=== PATIENT | male | born 1945 | race Caucasian/White ===

== ENCOUNTER 2018-07-17 10:45 | Outpatient (CLI) | payer MEDICARE ==
[~2018-07-17] VITALS: Ht 182.9 cm; Wt 99.8 kg
[~2018-07-17 10:45] MED LIST: L.AC1CAP6 PO; LISI1TAB6 PO; WARF4TAB PO
[2018-07-17] MEDS ORDERED: LACTATED RINGERS 1,000 ML IV PRN (12:35)
[2018-07-18] MEDS ORDERED: HYDR-3812 PO (08:47)
[2018-07-18] MEDS ORDERED: CLIN300C3 PO (08:47)
== END 2018-07-17 15:31 ==
LOC: PREOP 10:45
PROVIDERS: ATTEND Otolaryngology Otolaryngology/Facial Plastic Surgery
DX: Z01.818 Encounter for other preprocedural examination (principal)

== ENCOUNTER 2018-07-18 06:30 | Day surgery (SDC) | payer MEDICARE ==
[~2018-07-18] VITALS: Ht 182.9 cm; Wt 99.8 kg
[2018-07-18] MEDS ORDERED: CLINDAMYCIN 600 MG/50 ML IVPB 50 ML IV ONE (07:00)
[2018-07-18] MEDS ORDERED: CATHETER FLUSH 10 ML SYR IV PRN (07:00)
--- NOTE | 2018-07-18 07:01 | Progress Note-Pre Operative ---
Pre-Operative Progress Note H&P Reviewed The H&P was reviewed, patient examined and no changes noted. Date Seen by Provider: Jul 18, 2018 Time Seen by Provider: 07:00 Date H&P Reviewed: Jul 18, 2018 Time H&P Reviewed: 07:00 Pre-Operative Diagnosis: Chronic Right Sinusitis SELENA OG MD Jul 18, 2018 07:01
[2018-07-18] MEDS ORDERED: LIDOCAINE/EPI 1%-1:100,000 (XYLOCAINE) 20ML ONE (07:03)
[2018-07-18] MEDS ORDERED: BSS 15 ML ONE (07:03)
[2018-07-18] MEDS ORDERED: COCAINE HCL 4% 2 ML SYR ONE (07:03)
[2018-07-18] MEDS ORDERED: PHENYLEPHRINE 0.5% NASAL SPR (NEO-SYNEPHRINE) REG ONE (07:03)
--- OUTSIDE RECORDS SUMMARY | 2018-07-18 07:05 | XMS REPORT ---
Author [facility] Organization [facility] Address [address] [id number] Phone [phone] Summary purpose TRANSITION OF CARE AUTO GENERATION Chief Complaint and Reason for Visit No authorized Reason for Visit (Admitting Diagnosis) is available for this visit. Problem list No authorized problems tracked for continuity of care are available for this visit. Encounters No authorized problems tracked for encounter diagnoses are available for this visit. Medications No medications recorded for this patient visit Allergies, adverse reactions, alerts Allergen Category Ingredient Status Reaction Severity Onset Penicillins Drug Allergy Penicillins Confirmed or Verified Immunizations No immunizations recorded for this patient visit Relevant diagnostic tests and/or laboratory data No authorized results are available for this patient visit History of procedures No procedures recorded for this patient visit. Functional status No functional or cognitive status observations are available for this visit. Vital signs No authorized vital signs are available for this visit. Social history No Social History or smoking status observations were recorded for this visit. ( Unknown if ever smoked.) Treatment Plan No treatment plan text is available for this visit. Hospital discharge instructions No discharge instruction text is available for this visit.
--- OUTSIDE RECORDS SUMMARY | 2018-07-18 07:06 | XMS REPORT ---
Author [facility] Organization [facility] Address [address] [id number] Phone [phone] Summary purpose TRANSITION OF CARE AUTO GENERATION [...] visit Relevant diagnostic tests and/or laboratory data RESULTS Radiology Results [id number] WB BONE SCAN PACs Image DATE OF EXAM: 2015 [id number] BONE SCAN : RADIOLOGY REPORT DATE OF SERVICE:04/15/15 HISTORY:Patient has left side mid low back pain x three weeks. Patient injured while duck hunting. WHOLE BODY BONE SCAN 1345 HOURS The patient received 22.4 mCi of technetium MDP intravenously. Gamma camera images show normal axial skeleton with attention to the spine and ribs where patient complains of pain. There is some increased activity in the left wrist. The right distal arm and hand are not visualized well due to field of view limitations. There is increased activity in the medial aspect of both knees, likely degenerative in nature.There is mild increased activity superiorly in the left hip joint area, in the likely acetabular location. This is fairly minimal, most likely degenerative. Both kidneys show normal activity. IMPRESSION:Findings in peripheral joints, likely on degenerative basis. There is increased activity at the acromioclavicular joints bilaterally, greater on the right, also likely degenerative. No abnormal activity is seen in the spine and ribs where patient complains apparently of pain. DO JOANNA Gonzales/andres 04/15/2015 13:51:00 / 04/15/2015 17:47:36 cc:Dr. Daley This document has been electronically Signed by: On: History of procedures No procedures recorded for [...]
--- OUTSIDE RECORDS SUMMARY | 2018-07-18 07:06 | XMS REPORT | Clinical Summary ---
Author Author Admin, [email or web address] Organization [employer] Address Unknown Phone Unavailable Allergies, Adverse Reactions, Alerts Allergy Name Reaction Description Start Date Severity Status Provider PENICILLINS Mild No Longer Active Piotr Daley DO PENICILLINS Critical No Longer Active Piotr Katie Edi DO PENICILLINS UNK Inactive Bernadette Elder Conditions or Problems Problem Name Problem Code Onset Date Status Entry Date Provider Comment Standard Description Annotate CAROTID ARTERY DISEASE 433.10 Active Piotr Daley DO Occlusion and stenosis of carotid artery, without mention of cerebral infarction HYPERTENSION 401.9 Active Piotr Daley DO Unspecified essential hypertension FLANK PAIN, RIGHT 789.09 Resolved Katrina Rinaldi MD PhD Abdominal pain, other specified site; multiple sites PROSTATE CANCER, HX OF V10.46 Active Piotr Daley DO Personal history of malignant neoplasm of prostate HEALTH MAINTENANCE EXAM V70.0 Resolved Katrina Rinaldi MD PhD Routine general medical examination at a health care facility BRONCHITIS-ACUTE 466.0 Inactive Piotr Daley DO Acute bronchitis SCREENING, COLON CANCER V76.51 Resolved Katrina Rinaldi MD PhD Screening for malignant neoplasms of colon BRONCHITIS-ACUTE 466.0 Inactive Piotr Daley DO Acute bronchitis Rule out DEEP VENOUS THROMBOPHLEBITIS, LEG, RIGHT Resolved Piotr Daley DO Acute venous embolism and thrombosis of unspecified deep vessels of lower extremity DEEP VENOUS THROMBOPHLEBITIS, LEG, RIGHT 453.40 Resolved Piotr Daley DO Acute venous embolism and thrombosis of unspecified deep vessels of lower extremity Coumadin therapy V58.61 Active Alena Ramey Long-term (current) use of anticoagulants Seborrheic keratosis 702.19 Resolved Piotr Katie Edi DO Other seborrheic keratosis Bronchitis-Acute 466.0 Inactive Piotr W Edi DO Acute bronchitis Leg pain, right 729.5 Resolved Piotr W Edi DO Pain in limb Right leg pain 729.5 Resolved Poitr W Edi DO Pain in limb Bronchitis-Acute 466.0 Resolved Piotr W Edi DO Acute bronchitis Knee pain, left 719.46 Resolved Piotr Katie Edi DO Pain in joint involving lower leg Health maintenance exam V70.0 Active Adriane Rojo LPN Routine general medical examination at a health care facility Actinic keratoses 702.0 Resolved Piotr Katie Edi DO Actinic keratosis Personal history of malignant neoplasm of prostate V10.46 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 Personal history of malignant neoplasm of prostate Coronary artery disease 414.00 Active Alina Meyers APRN Coronary atherosclerosis of unspecified type of vessel, [employer] or graft Back pain, thoracic region, left 724.1 Inactive Piotr Katie Edi DO Pain in thoracic spine Thoracic back pain 724.5 Resolved Piotr Katie Edi DO Backache, unspecified Back pain lumbar 724.2 Resolved Piotr Katie Edi DO Lumbago Peripheral neuropathy, lower extremity, left 356.9 Active 02/19 Piotr W Edi DO Unspecified hereditary and idiopathic peripheral neuropathy Insect bite 919.4 Resolved Piotr W Edi DO Insect bite, nonvenomous, of other, multiple, and unspecified sites, without mention of infection Pruritus 698.9 Resolved Piotr Katie Edi DO Unspecified pruritic disorder Wellness exam V70.0 Active Emelyn Goode R[place]albita Routine general medical examination at a health care facility Bronchitis-Acute 466.0 Resolved Emelyn Goode [place] Acute bronchitis Dyspnea 786.09 Resolved Emelyn Goode [place] Other dyspnea and respiratory abnormality Sacroiliitis, right 720.2 Active Emelyn Goode [place] Sacroiliitis, not elsewhere classified Pes anserinus bursitis, right 726.61 Inactive Poitr Daley DO Pes anserinus tendinitis or bursitis Body Mass Index 30.0-30.9 Adult Refinement Piotr Daley DO Body Mass Index 30.0-30.9, adult BMI 31-31.9 Active Piotr Daley DO Body Mass Index 30.0-30.9, adult Obesity Class I (BMI 30-34.9) Active Piotr Daley DO Obesity, unspecified Deep venous thrombophlebitis, 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 Piotr Daley DO Acute venous embolism and thrombosis of unspecified deep vessels of lower extremity Actinic keratosis, head 702.0 Active Piotr Daley DO Actinic keratosis GERD (gastroesophageal reflux disease) 530.81 Active Piotr Daley DO Esophageal reflux Preop exam V72.84 Active Sirisha Chen LPN Preoperative examination, unspecified FLANK PAIN, RIGHT ICD-789.09 Inactive Katrina Rinaldi MD PhD HEALTH MAINTENANCE EXAM ICD-V70.0 Inactive Katrina Rinaldi MD PhD BRONCHITIS-ACUTE ICD-466.0 Inactive Piotr Daley DO SCREENING, COLON CANCER ICD-V76.51 Inactive Katrina Rinaldi MD PhD BRONCHITIS-ACUTE ICD-466.0 Inactive Piotr Daley DO DEEP VENOUS THROMBOPHLEBITIS, LEG, 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 Inactive Sirisha Chen [employer] WE[employer] DEEP VENOUS THROMBOPHLEBITIS, LEG, 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 Inactive Sirisha Chen [employer] Seborrheic keratosis ICD-702.19 Inactive Sirisha Chen [employer] WE[employer] Bronchitis-Acute ICD-466.0 Inactive Piotr Daley DO Leg pain, right ICD-729.5 Inactive Sirisha Chen [employer] Right leg pain ICD-729.5 Inactive Sirisha Chen [employer] WE[employer]ER Bronchitis-Acute ICD-466.0 Inactive Sirisha Chen [employer] WE[employer]ER Knee pain, left ICD-719.46 Inactive Sirisha Chen [employer] WE[employer]ER Actinic keratoses ICD-702.0 Inactive Sirisha Chen [employer] WE[employer]ER Back pain, thoracic region, left ICD-724.1 Inactive Piotr Daley DO Thoracic back pain ICD-724.5 Inactive Sirisha Chen [employer] WE[employer]ER Back pain lumbar ICD-724.2 Inactive Sirisha Chen [employer] WE[employer]ER Insect bite ICD-919.4 Inactive Sirisha Chen [employer] WE[employer] Pruritus ICD-698.9 Inactive 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 Bronchitis-Acute ICD-466.0 Inactive Sirisha Chen [employer] WE[employer]ER Dyspnea ICD-786.09 Inactive Sirisha Gustavo LOO 05/09 Pes anserinus bursitis, right ICD-726.61 Inactive Piotr Daley DO Medication List Medication Instructions Start Date Stop Date Generic Name ND Status Provider Patient Instruction TRIAMCINOLONE ACETONIDE 0.1 % EXTERNAL CREAM apply bid sparingly to rash 2017 TRIAMCINOLONE ACETONIDE 31066384302 No Longer Active Piotr Daley DO Active NYSTATIN 974554 UNIT/GM EXTERNAL CREAM Apply to rash 2-3 times a day and may repeat as needed NYSTATIN 62133780919 No Longer Active Piotr Daley DO Active WARFARIN SODIUM 4 MG ORAL TABLET 1 tablet by mouth daily WARFARIN SODIUM 55197584017 Active Sirisha Chen LPN Active MELOXICAM 15 MG ORAL TABLET 1 po q day for pain with food MELOXICAM 17175161442 Active Piotr Daley DO Active PREDNISONE 10 MG ORAL TABLET 1 tablet by mouth daily PREDNISONE 40517333569 No Longer Active Emelyn Norris Active TESSALON PERLES 100 MG ORAL CAPSULE 1-2 tablet by mouth 3 times daily 04/16 BENZONATATE 48139815324 No Longer Active Emelyn Norris Active PREDNISONE 20 MG ORAL TABLET two tabs by mouth today, then one tab by mouth days two and three PREDNISONE 32200973086 No Longer Active Piotr Daley DO Active CYCLOBENZAPRINE HCL 10 MG ORAL TABLET 1 tablet by mouth three times daily as needed for muscle spasm/pain CYCLOBENZAPRINE HCL 81061141343 Active Sirisha Chen LPN Active ZITHROMAX 250 MG ORAL TABLET Take two (2 ) tablets day one, then one (1) tablet a day for four (4) more days AZITHROMYCIN 65349439115 No Longer Active Piotr Daley DO Active PROAIR HFA 108 (90 BASE) MCG/ACT INHALATION AEROSOL SOLUTION 1-2 puffs four times a day as needed ALBUTEROL SULFATE 61244087123 No Longer Active Emelyn Russel Norris Active DOXYCYCLINE HYCLATE 100 MG ORAL CAPSULE 1 cap by mouth BID x10 days DOXYCYCLINE HYCLATE 94846121866 No Longer Active Nella Harris APRN Active PREDNISONE 20 MG ORAL TABLET 2 tabs daily for 3 days, 1 tab daily for 3 days, 1/2 tab daily for 2 days PREDNISONE 30799740895 No Longer Active Matthew Rangel MD Active TRAMADOL HCL 50 MG ORAL TABLET 1 po tid with ES Tylenol TRAMADOL HCL 83385909570 No Longer Active Matthew Rangel MD Active GABAPENTIN 300 MG ORAL CAPSULE 1 po q hs for nerve pain GABAPENTIN 36176410600 No Longer Active Matthew Rangel MD Active PREDNISONE 20 MG ORAL TABLET 2 tablets today, then 1 tablet days 2 through 4 PREDNISONE 85729787973 No Longer Active Piotr Daley DO Active AZITHROMYCIN 250 MG ORAL TABLET 2 po qd x 1 day, then 1 po qd x 4 days 07/12 AZITHROMYCIN 55623640383 No Longer Active Piotr Daley DO Active IBUPROFEN 800 MG ORAL TABLET 1 tab every 8 hours as needed 07/12 IBUPROFEN 56053301949 No Longer Active Piotr Daley DO Active LOMOTIL 2.5-0.025 MG ORAL TABLET 1 to 2 four times a day as needed for diarrhea DIPHENOXYLATE-ATROPINE 71487068107 No Longer Active Piotr Daley DO Active WARFARIN SODIUM 4 MG ORAL TABLET 1 tab every evening WARFARIN SODIUM 38613125167 No Longer Active Piotr Daley DO Active PREDNISONE 20 MG ORAL TABLET 1 tablet twice daily for 2 days, then 1 tablet once daily for 2 days PREDNISONE 08832470553 No Longer Active Piotr Daley DO Active PROMETHAZINE HCL 25 MG ORAL TABLET 1 four times a day as needed for nausea/ vomiting PROMETHAZINE HCL 86882787575 No Longer Active Piotr Daley DO Active TUSSIONEX PENNKINETIC ER 10-8 MG/5ML ORAL SUSPENSION EXTENDED RELEASE 5ml po q12hr PRN Cough HYDROCOD POLST-CHLORPHEN POLST 96168855311 No Longer Active Piotr Daley DO Active AZITHROMYCIN 250 MG ORAL TABLET 2 po qd x 1 day, then 1 po qd x 4 days 10/13 AZITHROMYCIN 94616471065 No Longer Active Piotr Daley DO Active AZITHROMYCIN 250 MG ORAL TABLET 2 po qd x 1 day, then 1 po qd x 4 days 05/07 AZITHROMYCIN 08508084400 No Longer Active Piotr Daley DO Active LISINOPRIL-HYDROCHLOROTHIAZIDE 10-12.5 MG ORAL TABLET 1 tab by mouth daily LISINOPRIL-HYDROCHLOROTHIAZIDE 57923110353 Active Cristina Gamboa RN Active LISINOPRIL 10 MG ORAL TABLET 1/2-1 tab po every other day LISINOPRIL 32946609026 No Longer Active Piotr Daley DO Active VENTOLIN HFA 108 (90 Base) MCG/ACT INHALATION AEROSOL SOLUTION 2 puffs four times a day PRN cough ALBUTEROL SULFATE 37802952672 No Longer Active Piotr Daley DO Active NYSTATIN-TRIAMCINOLONE 945592-2.1 UNIT/GM-% EXTERNAL CREAM Apply to area BID NYSTATIN-TRIAMCINOLONE 58222181587 No Longer Active Alena Chavira [employer] WEAVER Active PHISOHEX 3 % LIQD Use Directed HEXACHLOROPHENE 65245787643 No Longer Active Sandra [place] Active AZITHROMYCIN 250 MG ORAL TABLET 2 po qd x 1 day, then 1 po qd x 4 days 10/21 AZITHROMYCIN 49384660765 No Longer Active Katrina Rinaldi MD PhD Active AZITHROMYCIN 250 MG ORAL TABLET 2 po qd x 1 day, then 1 po qd x 4 days 10/16 AZITHROMYCIN 20374440879 No Longer Active Piotr Daley DO Active AZITHROMYCIN 500 MG INTRAVENOUS SOLUTION RECONSTITUTED 1 po q day AZITHROMYCIN 01609100612 No Longer Active Piotr Daley DO Active NYSTATIN-TRIAMCINOLONE 523807-1.1 UNIT/GM-% EXTERNAL CREAM apply bid NYSTATIN-TRIAMCINOLONE 86778607214 No Longer Active Piotr Daley DO Active IBUPROFEN 800 MG ORAL TABLET 1 po q 8 hours prn pain sparinly IBUPROFEN 67933078458 No Longer Active Piotr Daley DO Active VITAMIN D3 5000 UNIT ORAL CAPSULE 1 po daily CHOLECALCIFEROL 38897381657 Active Piotr Daley DO Active IBUPROFEN 800 MG ORAL TABLET 1 po q 8 hours prn pain sparinly IBUPROFEN 800 MG ORAL TABLET 124194 IBUPROFEN Inactive NYSTATIN-TRIAMCINOLONE 758492-6.1 UNIT/GM-% EXTERNAL CREAM apply bid NYSTATIN-TRIAMCINOLONE 331140-1.1 UNIT/GM-% EXTERNAL CREAM 1100458 NYSTATIN-TRIAMCINOLONE Inactive AZITHROMYCIN 500 MG INTRAVENOUS SOLUTION RECONSTITUTED 1 po q day AZITHROMYCIN 500 MG INTRAVENOUS SOLUTION RECONSTITUTED 72307009608 AZITHROMYCIN Inactive VENTOLIN HFA 108 (90 Base) MCG/ACT INHALATION AEROSOL SOLUTION 2 puffs four times a day PRN cough VENTOLIN HFA 108 (90 Base) MCG/ ACT INHALATION AEROSOL SOLUTION ALBUTEROL SULFATE Inactive LISINOPRIL 10 MG ORAL TABLET 1/2-1 tab po every other day LISINOPRIL 10 MG ORAL TABLET 947664 LISINOPRIL Inactive TUSSIONEX PENNKINETIC ER 10-8 MG/5ML ORAL SUSPENSION EXTENDED RELEASE 5ml po q12hr PRN Cough TUSSIONEX PENNKINETIC ER 10-8 MG/5ML ORAL SUSPENSION EXTENDED RELEASE HYDROCOD POLST-CHLORPHEN POLST Inactive PROMETHAZINE HCL 25 MG ORAL TABLET 1 four times a day as needed for nausea/ vomiting PROMETHAZINE HCL 25 MG ORAL TABLET 757972 PROMETHAZINE HCL Inactive PREDNISONE 20 MG ORAL TABLET 1 tablet twice daily for 2 days, then 1 tablet once daily for 2 days PREDNISONE 20 MG ORAL TABLET 939275 PREDNISONE Inactive WARFARIN SODIUM 4 MG ORAL TABLET 1 tab every evening WARFARIN SODIUM 4 MG ORAL TABLET 133015 WARFARIN SODIUM Inactive LOMOTIL 2.5-0.025 MG ORAL TABLET 1 to 2 four times a day as needed for diarrhea LOMOTIL 2.5-0.025 MG ORAL TABLET 4869134 DIPHENOXYLATE-ATROPINE Inactive IBUPROFEN 800 MG ORAL TABLET 1 tab every 8 hours as needed 07/12 IBUPROFEN 800 MG ORAL TABLET 744259 IBUPROFEN Inactive PREDNISONE 20 MG ORAL TABLET 2 tablets today, then 1 tablet days 2 through 4 PREDNISONE 20 MG ORAL TABLET 582733 PREDNISONE Inactive GABAPENTIN 300 MG ORAL CAPSULE 1 po q hs for nerve pain GABAPENTIN 300 MG ORAL CAPSULE 346677 GABAPENTIN Inactive TRAMADOL HCL 50 MG ORAL TABLET 1 po tid with ES Tylenol TRAMADOL HCL 50 MG ORAL TABLET 783513 TRAMADOL HCL Inactive PROAIR HFA 108 (90 BASE) MCG/ACT INHALATION AEROSOL SOLUTION 1-2 puffs four times a day as needed PROAIR HFA 108 (90 BASE) MCG/ACT INHALATION AEROSOL SOLUTION ALBUTEROL SULFATE Inactive PREDNISONE 20 MG ORAL TABLET two tabs by mouth today, then one tab by mouth days two and three PREDNISONE 20 MG ORAL TABLET 583015 PREDNISONE Inactive TESSALON PERLES 100 MG ORAL CAPSULE 1-2 tablet by mouth 3 times daily 04/16 TESSALON PERLES 100 MG ORAL CAPSULE 761996 BENZONATATE Inactive PREDNISONE 10 MG ORAL TABLET 1 tablet by mouth daily PREDNISONE 10 MG ORAL TABLET 227905 PREDNISONE Inactive NYSTATIN 211534 UNIT/GM EXTERNAL CREAM Apply to rash 2-3 times a day and may repeat as needed NYSTATIN 384521 UNIT/GM EXTERNAL CREAM 820889 NYSTATIN Inactive TRIAMCINOLONE ACETONIDE 0.1 % EXTERNAL CREAM apply bid sparingly to rash 2017 TRIAMCINOLONE ACETONIDE 0.1 % EXTERNAL CREAM 2102503 TRIAMCINOLONE ACETONIDE Inactive AZITHROMYCIN 250 MG ORAL TABLET 2 po qd x 1 day, then 1 po qd x 4 days 10/16 AZITHROMYCIN 250 MG ORAL TABLET 330605 AZITHROMYCIN Inactive AZITHROMYCIN 250 MG ORAL TABLET 2 po qd x 1 day, then 1 po qd x 4 days 10/21 AZITHROMYCIN 250 MG ORAL TABLET 548040 AZITHROMYCIN Inactive NYSTATIN-TRIAMCINOLONE 527216-6.1 UNIT/GM-% EXTERNAL CREAM Apply to area BID NYSTATIN-TRIAMCINOLONE 650665-7.1 UNIT/GM-% EXTERNAL CREAM 0850822 NYSTATIN-TRIAMCINOLONE Inactive AZITHROMYCIN 250 MG ORAL TABLET 2 po qd x 1 day, then 1 po qd x 4 days 05/07 AZITHROMYCIN 250 MG ORAL TABLET 493026 AZITHROMYCIN Inactive AZITHROMYCIN 250 MG ORAL TABLET 2 po qd x 1 day, then 1 po qd x 4 days 10/13 AZITHROMYCIN 250 MG ORAL TABLET 759451 AZITHROMYCIN Inactive AZITHROMYCIN 250 MG ORAL TABLET 2 po qd x 1 day, then 1 po qd x 4 days 07/12 AZITHROMYCIN 250 MG ORAL TABLET 916242 AZITHROMYCIN Inactive PREDNISONE 20 MG ORAL TABLET 2 tabs daily for 3 days, 1 tab daily for 3 days, 1/2 tab daily for 2 days PREDNISONE 20 MG ORAL TABLET 075919 PREDNISONE Inactive DOXYCYCLINE HYCLATE 100 MG ORAL CAPSULE 1 cap by mouth BID x10 days DOXYCYCLINE HYCLATE 100 MG ORAL CAPSULE 7088493 DOXYCYCLINE HYCLATE Inactive ZITHROMAX 250 MG ORAL TABLET Take two (2 ) tablets day one, then one (1) tablet a day for four (4) more days ZITHROMAX 250 MG ORAL TABLET 318800 AZITHROMYCIN Inactive Advance Directives Directive Description Start Date LIVING WILL LIVING WILL Immunizations Vaccine Administration Date Value Standard Description influenza immunization (Flu Vax) has been administered Done according to patient influenza virus vaccine, unspecified formulation Vital Signs Date Name Value Unit Range Description blood pressure, diastolic, repeated by physician 76 BP phan blood pressure, diastolic 76 mm[Hg] BP phan blood pressure, systolic, repeated by physician 150 BP sys blood pressure, systolic 150 mm[Hg] BP sys height E&M 71 [in_us] Bdy height pulse rate E&M 52 /min Heart rate temperature E&M 96.4 [degF] Body temperature weight E&M 222 [lb_av] Weight Measured blood pressure, diastolic 66 mm[Hg] BP phan blood pressure, systolic 120 mm[Hg] BP sys height E&M 71 [in_us] Bdy height pulse rate E&M 65 /min Heart rate temperature E&M 96.8 [degF] Body temperature weight E&M 219.50 [lb_av] Weight Measured blood pressure, diastolic 69 mm[Hg] BP phan blood pressure, systolic 121 mm[Hg] BP sys height E&M 71 [in_us] Bdy height pulse rate E&M 77 /min Heart rate temperature E&M 97.9 [degF] Body temperature weight E&M 220.50 [lb_av] Weight Measured Diagnostic Results Date Name Value Unit Range Description Lab Report: CBC - Hematology leukocyte count, blood 6.0 10^3/MM^3 10*3/mm3 4.6-10.2 erythrocyte (RBC) count 5.36 10^6/MM^3 10*6/mm3 4.50-6.50 hemoglobin, blood 14.5 g/dL 14.0-18.0 hematocrit, blood 46.0 % 40.0-54.0 mean corpuscular volume, RBC 86 fL 80-97 mean corpuscular hemoglobin, RBC 27.0 pg 27.0-31.2 mean corpuscular hemoglobin concentration, RBC 31.5 G/DL % 31.8- 35.4 red blood cell distribution width 12.6 % 11.6-14.8 platelet count 176 10^3/MM^3 10*3/mm3 142-424 Lab Report: Comp. Metabolic Panel, CBC, Prostatic Specific Ag - Chemistry prostate specific antigen 0.03 ng/mL 0.00-4.00 sodium, serum 141 mmol/L 902-892 6408/12/17 carbon dioxide, venous blood 30.9 mmol/L 21.0-32.0 potassium, serum 4.2 mmol/L 3.5-5.2 chloride, serum 102 mmol/L 98-107 blood glucose 100 mg/dL 65-95 urea nitrogen, blood 13 mg/dL 7-18 creatinine, serum 0.89 mg/dL 0.60-1.30 Estimated Glomerular Filtration Rate (calc) 89 (?) mL/min/1.73m2 =OR > 60 mL/min alanine aminotransferase (SGPT), serum 25 U/L 12-78 aspartate aminotransferase (SGOT), serum 19 U/L 15-37 calcium, serum 8.8 mg/dL 8.5-10.1 bilirubin, serum, total 0.40 mg/dL 0.00-1.00 Lab Report: Comp. Metabolic Panel, CBC, Prostatic Specific Ag - Hematology leukocyte count, blood 5.6 10^3/MM^3 10*3/mm3 4.6-10.2 erythrocyte (RBC) count 5.52 10^6/MM^3 10*6/mm3 4.50-6.50 hemoglobin, blood 15.0 g/dL 14.0-18.0 hematocrit, blood 47.1 % 40.0-54.0 mean corpuscular volume, RBC 85 fL 80-97 mean corpuscular hemoglobin, RBC 27.1 pg 27.0-31.2 mean corpuscular hemoglobin concentration, RBC 31.8 G/DL % 31.8- 35.4 red blood cell distribution width 12.1 % 11.6-14.8 platelet count 201 10^3/MM^3 10*3/mm3 142-424 Lab Report: Comp. Metabolic Panel, CBC, Prostatic Specific Ag - Lab Alkaline phosphatase 76 50-136 Lab Report: MICROALB/CREAT W/RATIO - Lab microalbumin, urine 30 mg/L 0-19 Lab Report: MICROALB/CREAT W/RATIO - Urinalysis microalbumin/total urine volume <30 mg/g Normal mg/g mg/L 0-29 Encounters Code Encounter Date Provider Facility CPT-42892 [id number] Vst-Est Level III 14:38:24 REINFORCED IRONWORKER Piotr Daley [facility] CPT-13570 [id number] Vst-Est Level IV 08:51:04 REINFORCED IRONWORKER Piotr Daley [facility] CPT-34637 [id number] Vst-Est Level III 14:29:05 CDT Piotr Wilson [facility] CPT-63097 Level 3 Est. Patient 15:59:25 REINFORCED IRONWORKER Piotr Daley [facility] CPT-88609 Level 3 Est. Patient 12:33:59 REINFORCED IRONWORKER Piotr Wilson [facility] CPT-24651 Level 3 Est. Patient 15:56:17 REINFORCED IRONWORKER Piotr Daley [facility] CPT-03475 Level 3 Est. Patient 10:34:54 REINFORCED IRONWORKER Piotr Daley [facility] CPT-07510 Level 3 Est. Patient 17:10:19 CDT Nella Harris APRN [facility] CPT-27933 Level 3 Est. Patient 10:48:17 REINFORCED IRONWORKER Matthew Rangel MD [facility] CPT-61918 Level 4 Est. Patient 17:15:07 REINFORCED IRONWORKER Piotr Daley [facility] CPT-99625 Level 3 Est. Patient 12:46:13 REINFORCED IRONWORKER Piotr Wilson [facility] CPT-16658 Level 3 Est. Patient 15:14:31 REINFORCED IRONWORKER Piotr Katie Daley [facility] CPT-87782 Level 3 Est. Patient 09:20:13 REINFORCED IRONWORKER Piotr Katie Daley [facility] CPT-85678 Level 3 Est. Patient 09:49:40 CDT Piotr Daley [facility] CPT-87358 Level 3 Est. Patient 16:28:11 CDT Piotr Daley [facility] CPT-62166 Level 3 Est. Patient 12:41:58 REINFORCED IRONWORKER Piotr Katie Daley [facility] CPT-79946 Level 3 Est. Patient 09:21:24 CDT Piotr Daley [facility] CPT-01138 Level 3 Est. Patient 09:21:11 CDT Piotr Wilson Edi [facility] CPT-41271 Level 3 Est. Patient 11:16:29 REINFORCED IRONWORKER Piotr Katie Daley [facility] CPT-38892 Level 3 Est. Patient 18:40:19 REINFORCED IRONWORKER Piotr Katie Daley [facility] CPT-20656 Level 3 Est. Patient 19:30:50 CDT Piotr Daley [facility] CPT-02997 Level 3 Est. Patient 22:06:44 CDT Katrina Rinaldi MD [facility] CPT-31315 Level 3 Est. Patient 14:20:00 CDT Piotr Daley [facility] CPT-24534 Level 3 Est. Patient 14:15:22 REINFORCED IRONWORKER Piotr Daley [facility] CPT-56435 Level 3 Est. Patient 20:19:57 REINFORCED IRONWORKER Piotr Daley [facility] CPT-54188 Level 3 Est. Patient 16:44:32 CDT Piotr Daley [facility] CPT-61186 Level 3 Est. Patient 08:48:46 REINFORCED IRONWORKER Piotr Daley [facility] CPT-74417 Level 3 Est. Patient 21:01:21 CDT Piotr Wilson Edi [facility] Procedures Code Procedure Name Date Entry Date Standard Description CPT-01324 EKG Trac and Interp - XRAY USE ONLY 10:03:07 CDT 07/14 CPT-Cryo Cryotherapy 08:51:04 [employer]IN[employer]CED IRONWORKER CPT-G0439 Subsequent Annual Wellness Exam 08:51:04 [employer]CED IRONWORKER CPT-78132 Sacroiliac jt < 3V - XRAY USE ONLY 16:45:19 [employer]IN[employer]CED IRONWORKER 05/09 CPT-86456 LS spine comp w obliques - XRAY USE ONLY 14:52:26 [facility] CPT-57667 Chest, 2 views 12:55:58 [employer]IN[employer]CED IRONWORKER CPT-G0439 Subsequent Annual Wellness Exam 10:34:52 [employer]CED IRONWORKER CPT-60799 BMP - LAB USE ONLY 17:19:11 [employer]ED [employer]WORKER CPT-30140 PT/INR - LAB USE ONLY 17:19:10 [facility] CPT-05955 Venipuncture Draw Fee 17:19:10 [facility] CPT-92971 PT/INR - LAB USE ONLY 08:12:25 [facility] CPT-21765 Venipuncture Draw Fee 08:12:24 [employer]ED [employer]WORKER CPT-56992 Venipuncture Draw Fee 11:31:07 [employer]IN[employer]CED IRONWORKER CPT-91127 TPSA - LAB USE ONLY 11:31:07 [employer]INFORCED IRONWORKER CPT-23695 PT/INR - LAB USE ONLY 11:31:07 [employer]IN[employer]CED IRONWORKER CPT-G0439 Subsequent Annual Wellness Exam 09:59:29 [employer]IN[employer]CED [employer]ONWORKER CPT-67411 Creatinine - LAB USE ONLY 14:37:55 [employer]IN[employer]CED IRONWORKER CPT-44106 PT/INR - LAB USE ONLY 14:37:55 [employer]IN[employer]CED IRONWORKER CPT-33900 Venipuncture Draw Fee 14:37:55 [employer]IN[employer]CED IRONWORKER CPT-15383 LS spine comp w obliques - XRAY USE ONLY 12:59:25 [employer]INFORCED IRONWORKER CPT-41830 PT/INR - LAB USE ONLY 13:49:20 CDT CPT-74720 Venipuncture Draw Fee 13:49:19 CDT CPT-35735 PT/INR - LAB USE ONLY 15:48:49 CDT CPT-98132 Venipuncture Draw Fee 15:48:49 CDT CPT-84244 Venipuncture Draw Fee 11:31:59 CDT CPT-35121 PT/INR - LAB USE ONLY 11:31:59 CDT CPT-20566 Venipuncture Draw Fee 13:29:15 CDT CPT-15135 Thoracolumbar AP/Lat 15:19:19 [employer]ED [employer]WORKER CPT-G0438 Initial Annual Wellness Exam 12:18:54 [employer]ED IRONWORKER CPT-84800 Knee 3V 09:57:38 CDT CPT-OV Office Visit 15:45:01 [employer]ED IRONWORKER CPT-16083 Abd compl w upright 17:10:25 CDT
--- OUTSIDE RECORDS SUMMARY | 2018-07-18 07:07 | XMS REPORT | Clinical Summary ---
Author Author Admin, [employer] Organization [employer] Address Unknown Phone Unavailable Allergies, Adverse Reactions, [...] in limb Right leg pain 729.5 Resolved Piotr W Edi DO Pain in limb Bronchitis-Acute [...] neoplasm of prostate V10.46 Active Alina Meyers FITTER ARMAMENT Personal history of malignant neoplasm of prostate Coronary artery disease 414.00 Active Alina Meyers APRN Coronary atherosclerosis of unspecified type of vessel, [place] or graft Back pain, thoracic region, left [...] classified Pes anserinus bursitis, right 726.61 Inactive Piotr Daley DO Pes anserinus tendinitis or bursitis [...] THROMBOPHLEBITIS, LEG, 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 Inactive Sirisha Chen DIETARY SERVER DEEP VENOUS THROMBOPHLEBITIS, LEG, 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 Inactive Sirisha Chen DIETARY SERVER Seborrheic keratosis ICD-702.19 Inactive Sirisha Chen DIETARY SERVER Bronchitis-Acute ICD-466.0 Inactive Piotr Daley DO Leg pain, right ICD-729.5 Inactive Sirisha Chen DIETARY SERVER Right leg pain ICD-729.5 Inactive Sirisha Chen DIETARY SERVER Bronchitis-Acute ICD-466.0 Inactive Sirisha Chen DIETARY SERVER Knee pain, left ICD-719.46 Inactive Sirisha Chen DIETARY SERVER Actinic keratoses ICD-702.0 Inactive Sirisha Chen DIETARY SERVER Back pain, thoracic region, left ICD-724.1 Inactive Piotr Daley DO Thoracic back pain ICD-724.5 Inactive Sirisha Chen DIETARY SERVER Back pain lumbar ICD-724.2 Inactive Sirisha Chen DIETARY SERVER Insect bite ICD-919.4 Inactive Sirisha Chen DIETARY SERVER Pruritus ICD-698.9 Inactive Sirisha Chen DIETARY SERVER 04/09 Bronchitis-Acute ICD-466.0 Inactive Sirisha Chen DIETARY SERVER Dyspnea ICD-786.09 Inactive Sirisha Gustavo OLO 05/09 Pes anserinus bursitis, right ICD-726.61 Inactive Piotr Daley DO Medication List Medication Instructions Start Date Stop Date Generic Name ND Status Provider Patient Instruction TRIAMCINOLONE ACETONIDE 0.1 % EXTERNAL CREAM apply bid sparingly to rash 2017 TRIAMCINOLONE ACETONIDE 14538377241 No Longer Active Piotr Daley DO Active NYSTATIN 571613 UNIT/GM EXTERNAL CREAM Apply to rash 2-3 times a day and may repeat as needed NYSTATIN 61883695742 No Longer Active Piotr Daley DO Active WARFARIN SODIUM 4 MG ORAL TABLET 1 tablet by mouth daily WARFARIN SODIUM 00181325619 Active Sirisha Chen LPN Active MELOXICAM 15 MG ORAL TABLET 1 po q day for pain with food MELOXICAM 81527860076 Active Piotr Daley DO Active PREDNISONE 10 MG ORAL TABLET 1 tablet by mouth daily PREDNISONE 58732628527 No Longer Active Emelyn Norris Active TESSALON PERLES 100 MG ORAL CAPSULE 1-2 tablet by mouth 3 times daily 04/16 BENZONATATE 74041816325 No Longer Active Emelyn Norris Active PREDNISONE 20 MG ORAL TABLET two tabs by mouth today, then one tab by mouth days two and three PREDNISONE 50840904173 No Longer Active Piotr Daley DO Active CYCLOBENZAPRINE HCL 10 MG ORAL TABLET 1 tablet by mouth three times daily as needed for muscle spasm/pain CYCLOBENZAPRINE HCL 34695462286 Active Sirisha Chen LPN Active ZITHROMAX 250 MG ORAL TABLET Take two (2 ) tablets day one, then one (1) tablet a day for four (4) more days AZITHROMYCIN 12256771090 No Longer Active Piotr Daley DO Active PROAIR HFA 108 (90 BASE) MCG/ACT INHALATION AEROSOL SOLUTION 1-2 puffs four times a day as needed ALBUTEROL SULFATE 88602728819 No Longer Active Emelyn Russel Norris Active DOXYCYCLINE HYCLATE 100 MG ORAL CAPSULE 1 cap by mouth BID x10 days DOXYCYCLINE HYCLATE 32472251193 No Longer Active Nella Harris APRN Active PREDNISONE 20 MG ORAL TABLET 2 tabs daily for 3 days, 1 tab daily for 3 days, 1/2 tab daily for 2 days PREDNISONE 42200386813 No Longer Active Matthew Rangel MD Active TRAMADOL HCL 50 MG ORAL TABLET 1 po tid with ES Tylenol TRAMADOL HCL 19294976164 No Longer Active Matthew Rangel MD Active GABAPENTIN 300 MG ORAL CAPSULE 1 po q hs for nerve pain GABAPENTIN 96446012698 No Longer Active Matthew Rangel MD Active PREDNISONE 20 MG ORAL TABLET 2 tablets today, then 1 tablet days 2 through 4 PREDNISONE 55016849178 No Longer Active Piotr Daley DO Active AZITHROMYCIN 250 MG ORAL TABLET 2 po qd x 1 day, then 1 po qd x 4 days 07/12 AZITHROMYCIN 08225363880 No Longer Active Piotr Daley DO Active IBUPROFEN 800 MG ORAL TABLET 1 tab every 8 hours as needed 07/12 IBUPROFEN 46480039038 No Longer Active Piotr Daley DO Active LOMOTIL 2.5-0.025 MG ORAL TABLET 1 to 2 four times a day as needed for diarrhea DIPHENOXYLATE-ATROPINE 71415629492 No Longer Active Piotr Daley DO Active WARFARIN SODIUM 4 MG ORAL TABLET 1 tab every evening WARFARIN SODIUM 08609762511 No Longer Active Piotr Daley DO Active PREDNISONE 20 MG ORAL TABLET 1 tablet twice daily for 2 days, then 1 tablet once daily for 2 days PREDNISONE 22674176307 No Longer Active Piotr Daley DO Active PROMETHAZINE HCL 25 MG ORAL TABLET 1 four times a day as needed for nausea/ vomiting PROMETHAZINE HCL 98229491780 No Longer Active Piotr Daley DO Active TUSSIONEX PENNKINETIC ER 10-8 MG/5ML ORAL SUSPENSION EXTENDED RELEASE 5ml po q12hr PRN Cough HYDROCOD POLST-CHLORPHEN POLST 37878400381 No Longer Active Piotr Daley DO Active AZITHROMYCIN 250 MG ORAL TABLET 2 po qd x 1 day, then 1 po qd x 4 days 10/13 AZITHROMYCIN 39912605449 No Longer Active Piotr Daley DO Active AZITHROMYCIN 250 MG ORAL TABLET 2 po qd x 1 day, then 1 po qd x 4 days 05/07 AZITHROMYCIN 39344809702 No Longer Active Piotr Daley DO Active LISINOPRIL-HYDROCHLOROTHIAZIDE 10-12.5 MG ORAL TABLET 1 tab by mouth daily LISINOPRIL-HYDROCHLOROTHIAZIDE 50713436924 Active Cristina Gamboa RN Active LISINOPRIL 10 MG ORAL TABLET 1/2-1 tab po every other day LISINOPRIL 08258929013 No Longer Active Piotr Daley DO Active VENTOLIN HFA 108 (90 Base) MCG/ACT INHALATION AEROSOL SOLUTION 2 puffs four times a day PRN cough ALBUTEROL SULFATE 16444705877 No Longer Active Piotr Daley DO Active NYSTATIN-TRIAMCINOLONE 484279-9.1 UNIT/GM-% EXTERNAL CREAM Apply to area BID NYSTATIN-TRIAMCINOLONE 05854621853 No Longer Active Alena Chavira DIETARY SERVER Active PHISOHEX 3 % LIQD Use Directed HEXACHLOROPHENE 69660831508 No Longer Active Sandra Antelope Active AZITHROMYCIN 250 MG ORAL TABLET 2 po qd x 1 day, then 1 po qd x 4 days 10/21 AZITHROMYCIN 90905817152 No Longer Active Katrina Rinaldi MD PhD Active AZITHROMYCIN 250 MG ORAL TABLET 2 po qd x 1 day, then 1 po qd x 4 days 10/16 AZITHROMYCIN 71059890437 No Longer Active Piotr Daley DO Active AZITHROMYCIN 500 MG INTRAVENOUS SOLUTION RECONSTITUTED 1 po q day AZITHROMYCIN 65939103021 No Longer Active Piotr Daley DO Active NYSTATIN-TRIAMCINOLONE 723490-3.1 UNIT/GM-% EXTERNAL CREAM apply bid NYSTATIN-TRIAMCINOLONE 62569431187 No Longer Active Piotr Daley DO Active IBUPROFEN 800 MG ORAL TABLET 1 po q 8 hours prn pain sparinly IBUPROFEN 99555854588 No Longer Active Piotr Daley DO Active VITAMIN D3 5000 UNIT ORAL CAPSULE 1 po daily CHOLECALCIFEROL 28830059093 Active Piotr Daley DO Active IBUPROFEN 800 MG ORAL TABLET 1 po q 8 hours prn pain sparinly IBUPROFEN 800 MG ORAL TABLET 678444 IBUPROFEN Inactive NYSTATIN-TRIAMCINOLONE 521380-4.1 UNIT/GM-% EXTERNAL CREAM apply bid NYSTATIN-TRIAMCINOLONE 793081-1.1 UNIT/GM-% EXTERNAL CREAM 0162391 NYSTATIN-TRIAMCINOLONE Inactive AZITHROMYCIN 500 MG INTRAVENOUS SOLUTION RECONSTITUTED 1 po q day AZITHROMYCIN 500 MG INTRAVENOUS SOLUTION RECONSTITUTED 19796434634 AZITHROMYCIN Inactive VENTOLIN HFA 108 (90 Base) MCG/ACT INHALATION AEROSOL SOLUTION 2 puffs four times a day PRN cough VENTOLIN HFA 108 (90 Base) MCG/ ACT INHALATION AEROSOL SOLUTION ALBUTEROL SULFATE Inactive LISINOPRIL 10 MG ORAL TABLET 1/2-1 tab po every other day LISINOPRIL 10 MG ORAL TABLET 702692 LISINOPRIL Inactive TUSSIONEX PENNKINETIC ER 10-8 MG/5ML ORAL SUSPENSION EXTENDED RELEASE 5ml po q12hr PRN Cough TUSSIONEX PENNKINETIC ER 10-8 MG/5ML ORAL SUSPENSION EXTENDED RELEASE HYDROCOD POLST-CHLORPHEN POLST Inactive PROMETHAZINE HCL 25 MG ORAL TABLET 1 four times a day as needed for nausea/ vomiting PROMETHAZINE HCL 25 MG ORAL TABLET 648033 PROMETHAZINE HCL Inactive PREDNISONE 20 MG ORAL TABLET 1 tablet twice daily for 2 days, then 1 tablet once daily for 2 days PREDNISONE 20 MG ORAL TABLET 162655 PREDNISONE Inactive WARFARIN SODIUM 4 MG ORAL TABLET 1 tab every evening WARFARIN SODIUM 4 MG ORAL TABLET 354435 WARFARIN SODIUM Inactive LOMOTIL 2.5-0.025 MG ORAL TABLET 1 to 2 four times a day as needed for diarrhea LOMOTIL 2.5-0.025 MG ORAL TABLET 2984939 DIPHENOXYLATE-ATROPINE Inactive IBUPROFEN 800 MG ORAL TABLET 1 tab every 8 hours as needed 07/12 IBUPROFEN 800 MG ORAL TABLET 956355 IBUPROFEN Inactive PREDNISONE 20 MG ORAL TABLET 2 tablets today, then 1 tablet days 2 through 4 PREDNISONE 20 MG ORAL TABLET 529949 PREDNISONE Inactive GABAPENTIN 300 MG ORAL CAPSULE 1 po q hs for nerve pain GABAPENTIN 300 MG ORAL CAPSULE 146344 GABAPENTIN Inactive TRAMADOL HCL 50 MG ORAL TABLET 1 po tid with ES Tylenol TRAMADOL HCL 50 MG ORAL TABLET 130885 TRAMADOL HCL Inactive PROAIR HFA 108 (90 BASE) MCG/ACT INHALATION AEROSOL SOLUTION 1-2 puffs four times a day as needed PROAIR HFA 108 (90 BASE) MCG/ACT INHALATION AEROSOL SOLUTION ALBUTEROL SULFATE Inactive PREDNISONE 20 MG ORAL TABLET two tabs by mouth today, then one tab by mouth days two and three PREDNISONE 20 MG ORAL TABLET 001425 PREDNISONE Inactive TESSALON PERLES 100 MG ORAL CAPSULE 1-2 tablet by mouth 3 times daily 04/16 TESSALON PERLES 100 MG ORAL CAPSULE 036351 BENZONATATE Inactive PREDNISONE 10 MG ORAL TABLET 1 tablet by mouth daily PREDNISONE 10 MG ORAL TABLET 757775 PREDNISONE Inactive NYSTATIN 114158 UNIT/GM EXTERNAL CREAM Apply to rash 2-3 times a day and may repeat as needed NYSTATIN 791168 UNIT/GM EXTERNAL CREAM 611647 NYSTATIN Inactive TRIAMCINOLONE ACETONIDE 0.1 % EXTERNAL CREAM apply bid sparingly to rash 2017 TRIAMCINOLONE ACETONIDE 0.1 % EXTERNAL CREAM 8925837 TRIAMCINOLONE ACETONIDE Inactive AZITHROMYCIN 250 MG ORAL TABLET 2 po qd x 1 day, then 1 po qd x 4 days 10/16 AZITHROMYCIN 250 MG ORAL TABLET 118180 AZITHROMYCIN Inactive AZITHROMYCIN 250 MG ORAL TABLET 2 po qd x 1 day, then 1 po qd x 4 days 10/21 AZITHROMYCIN 250 MG ORAL TABLET 457140 AZITHROMYCIN Inactive NYSTATIN-TRIAMCINOLONE 717492-9.1 UNIT/GM-% EXTERNAL CREAM Apply to area BID NYSTATIN-TRIAMCINOLONE 496600-7.1 UNIT/GM-% EXTERNAL CREAM 2171390 NYSTATIN-TRIAMCINOLONE Inactive AZITHROMYCIN 250 MG ORAL TABLET 2 po qd x 1 day, then 1 po qd x 4 days 05/07 AZITHROMYCIN 250 MG ORAL TABLET 801229 AZITHROMYCIN Inactive AZITHROMYCIN 250 MG ORAL TABLET 2 po qd x 1 day, then 1 po qd x 4 days 10/13 AZITHROMYCIN 250 MG ORAL TABLET 199494 AZITHROMYCIN Inactive AZITHROMYCIN 250 MG ORAL TABLET 2 po qd x 1 day, then 1 po qd x 4 days 07/12 AZITHROMYCIN 250 MG ORAL TABLET 846165 AZITHROMYCIN Inactive PREDNISONE 20 MG ORAL TABLET 2 tabs daily for 3 days, 1 tab daily for 3 days, 1/2 tab daily for 2 days PREDNISONE 20 MG ORAL TABLET 785659 PREDNISONE Inactive DOXYCYCLINE HYCLATE 100 MG ORAL CAPSULE 1 cap by mouth BID x10 days DOXYCYCLINE HYCLATE 100 MG ORAL CAPSULE 8752943 DOXYCYCLINE HYCLATE Inactive ZITHROMAX 250 MG ORAL TABLET Take two (2 ) tablets day one, then one (1) tablet a day for four (4) more days ZITHROMAX 250 MG ORAL TABLET 403067 AZITHROMYCIN Inactive Advance Directives Directive Description Start [...] 0.03 ng/mL 0.00-4.00 sodium, serum 141 mmol/L 450-959 0161/12/17 carbon dioxide, venous blood 30.9 mmol/L 21.0-32.0 [...] 0-29 Encounters Code Encounter Date Provider Facility CPT-22073 [id number] Vst-Est Level III 14:38:24 CAR DISTRIBUTOR Piotr Daley [facility] CPT-18643 61314-Btd Vst-Est Level IV 08:51:04 CAR DISTRIBUTOR Piotr Daley [facility] CPT-04529 28525-Lls Vst-Est Level III 14:29:05 CDT Piotr Wilson [facility] CPT-44693 Level 3 Est. Patient 15:59:25 CAR DISTRIBUTOR Piotr Daley [facility] CPT-32064 Level 3 Est. Patient 12:33:59 CAR DISTRIBUTOR Piotr Wilson [facility] CPT-47073 Level 3 Est. Patient 15:56:17 CAR DISTRIBUTOR Piotr Daley [facility] CPT-06623 Level 3 Est. Patient 10:34:54 CAR DISTRIBUTOR Piotr Daley [facility] CPT-36389 Level 3 Est. Patient 17:10:19 CDT Nella Harris APRN [facility] CPT-55821 Level 3 Est. Patient 10:48:17 CAR DISTRIBUTOR Matthew Rangel MD [facility] CPT-11900 Level 4 Est. Patient 17:15:07 CAR DISTRIBUTOR Piotr Daley [facility] CPT-00642 Level 3 Est. Patient 12:46:13 CAR DISTRIBUTOR Piotr Wilson [facility] CPT-13327 Level 3 Est. Patient 15:14:31 CAR DISTRIBUTOR Piotr Katie Daley [facility] CPT-54437 Level 3 Est. Patient 09:20:13 CAR DISTRIBUTOR Piotr Katie Daley [facility] CPT-79954 Level 3 Est. Patient 09:49:40 CDT Piotr Daley [facility] CPT-64620 Level 3 Est. Patient 16:28:11 CDT Piotr Daley [facility] CPT-85893 Level 3 Est. Patient 12:41:58 CAR DISTRIBUTOR Piotr Katie Daley [facility] CPT-94974 Level 3 Est. Patient 09:21:24 CDT Piotr Daley [facility] CPT-36649 Level 3 Est. Patient 09:21:11 CDT Piotr Wilson Edi [facility] CPT-18733 Level 3 Est. Patient 11:16:29 CAR DISTRIBUTOR Piotr Katie Daley [facility] CPT-97574 Level 3 Est. Patient 18:40:19 CAR DISTRIBUTOR Piotr Katie Daley [facility] CPT-87561 Level 3 Est. Patient 19:30:50 CDT Piotr Daley [facility] CPT-06218 Level 3 Est. Patient 22:06:44 CDT Katrina Rinaldi MD [facility] CPT-85508 Level 3 Est. Patient 14:20:00 CDT Piotr Daley [facility] CPT-33884 Level 3 Est. Patient 14:15:22 CAR DISTRIBUTOR Piotr Daley [facility] CPT-24142 Level 3 Est. Patient 20:19:57 CAR DISTRIBUTOR Piotr Daley [facility] CPT-78038 Level 3 Est. Patient 16:44:32 CDT Piotr Daley [facility] CPT-78477 Level 3 Est. Patient 08:48:46 CAR DISTRIBUTOR Piotr Daley [facility] CPT-63506 Level 3 Est. Patient 21:01:21 CDT Piotr Wilson Edi [facility] Procedures Code Procedure Name Date Entry Date Standard Description CPT-35005 EKG Trac and Interp - XRAY USE ONLY 10:03:07 CDT 07/14 CPT-Cryo Cryotherapy 08:51:04 CAR DISTRIBUTOR CPT-G0439 Subsequent Annual Wellness Exam 08:51:04 CAR DISTRIBUTOR CPT-48326 Sacroiliac jt < 3V - XRAY USE ONLY 16:45:19 CAR DISTRIBUTOR 05/09 CPT-49842 LS spine comp w obliques - XRAY USE ONLY 14:52:26 [facility] CPT-87074 Chest, 2 views 12:55:58 CAR DISTRIBUTOR CPT-G0439 Subsequent Annual Wellness Exam 10:34:52 CAR DISTRIBUTOR CPT-97743 BMP - LAB USE ONLY 17:19:11 CAR DISTRIBUTOR CPT-84241 PT/INR - LAB USE ONLY 17:19:10 [facility] CPT-98929 Venipuncture Draw Fee 17:19:10 [facility] CPT-75103 PT/INR - LAB USE ONLY 08:12:25 [facility] CPT-14159 Venipuncture Draw Fee 08:12:24 CAR DISTRIBUTOR CPT-56888 Venipuncture Draw Fee 11:31:07 CAR DISTRIBUTOR CPT-90285 TPSA - LAB USE ONLY 11:31:07 CAR DISTRIBUTOR CPT-70197 PT/INR - LAB USE ONLY 11:31:07 CAR DISTRIBUTOR CPT-G0439 Subsequent Annual Wellness Exam 09:59:29 CAR DISTRIBUTOR CPT-88976 Creatinine - LAB USE ONLY 14:37:55 CAR DISTRIBUTOR CPT-19646 PT/INR - LAB USE ONLY 14:37:55 CAR DISTRIBUTOR CPT-59734 Venipuncture Draw Fee 14:37:55 CAR DISTRIBUTOR CPT-17706 LS spine comp w obliques - XRAY USE ONLY 12:59:25 CAR DISTRIBUTOR CPT-22631 PT/INR - LAB USE ONLY 13:49:20 CDT CPT-44047 Venipuncture Draw Fee 13:49:19 CDT CPT-25435 PT/INR - LAB USE ONLY 15:48:49 CDT CPT-74492 Venipuncture Draw Fee 15:48:49 CDT CPT-81794 Venipuncture Draw Fee 11:31:59 CDT CPT-60424 PT/INR - LAB USE ONLY 11:31:59 CDT CPT-38883 Venipuncture Draw Fee 13:29:15 CDT CPT-21572 Thoracolumbar AP/Lat 15:19:19 CAR DISTRIBUTOR CPT-G0438 Initial Annual Wellness Exam 12:18:54 CAR DISTRIBUTOR CPT-94852 Knee 3V 09:57:38 CDT CPT-OV Office Visit 15:45:01 CAR DISTRIBUTOR CPT-45365 Abd compl w upright 17:10:25 CDT
--- OUTSIDE RECORDS SUMMARY | 2018-07-18 07:08 | XMS REPORT | Clinical Summary ---
Author Author Admin, [employer] Address Unknown Phone Unavailable Allergies, Adverse Reactions, Alerts Allergy Name Reaction Description Start Date Severity Status Provider PENICILLINS Mild No Longer Active Piotr Daley DO PENICILLINS Critical No Longer Active Piotr Wilson Edi DO PENICILLINS UNK Inactive Bernadette Elder [...] anticoagulants Seborrheic keratosis 702.19 Resolved Piotr Katie Daley DO Other seborrheic keratosis Bronchitis-Acute 466.0 Inactive Piotr W Edi DO Acute bronchitis Leg pain, right 729.5 Resolved Piotr W Edi DO Pain in limb Right leg pain 729.5 Resolved Piotr Katie Edi DO Pain in limb Bronchitis-Acute 466.0 [...] neoplasm of prostate V10.46 Active Alina Meyers APRN Personal history of malignant neoplasm of prostate Coronary artery disease 414.00 Active Alina Meyers APRN Coronary atherosclerosis of unspecified type of vessel, [place] or graft Back pain, thoracic region, left 724.1 Inactive Piotr Katie Edi DO Pain in thoracic spine Thoracic back pain 724.5 Resolved Piotr Katie Edi DO Backache, unspecified Back pain lumbar 724.2 Resolved Piotr Katie Edi DO Lumbago Peripheral neuropathy, lower extremity, left 356.9 Active 02/19 Piotr Katie Edi DO Unspecified hereditary and idiopathic peripheral neuropathy Insect bite 919.4 Resolved Piotr Katie Edi DO Insect bite, nonvenomous, of other, [...] abnormality Sacroiliitis, right 720.2 Active Emelyn Goode Jr Sacroiliitis, not elsewhere classified Pes anserinus bursitis, [...] THROMBOPHLEBITIS, LEG, 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 Inactive Sirisha Chen E D TECH DEEP VENOUS THROMBOPHLEBITIS, LEG, 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 Inactive Sirisha Chen E D TECH Seborrheic keratosis ICD-702.19 Inactive Sirisha Chen E D TECH Bronchitis-Acute ICD-466.0 Inactive Piotr Daley DO Leg pain, right ICD-729.5 Inactive Sirisha Chen E D TECH Right leg pain ICD-729.5 Inactive Sirisha Chen E D TECH Bronchitis-Acute ICD-466.0 Inactive Sirisha Chen E D TECH Knee pain, left ICD-719.46 Inactive Sirisha Chen E D TECH Actinic keratoses ICD-702.0 Inactive Sirisha Cehn E D TECH Back pain, thoracic region, left ICD-724.1 Inactive Piotr Daley DO Thoracic back pain ICD-724.5 Inactive Sirisha Chen E D TECH Back pain lumbar ICD-724.2 Inactive Sirisha Chen E D TECH Insect bite ICD-919.4 Inactive Sirisha Chen E D TECH Pruritus ICD-698.9 Inactive Sirisha Chen E D TECH 04/09 Bronchitis-Acute ICD-466.0 Inactive Sirisha Chen E D TECH Dyspnea ICD-786.09 Inactive Sirisha Gustavo LOO 05/09 Pes anserinus bursitis, right ICD-726.61 Inactive Piotr Daley DO Medication List Medication Instructions Start Date Stop Date Generic Name NDC Status Provider Patient Instruction TRIAMCINOLONE ACETONIDE 0.1 % EXTERNAL CREAM apply bid sparingly to rash 2017 TRIAMCINOLONE ACETONIDE 43298740293 No Longer Active Piotr Daley DO Active NYSTATIN 685811 UNIT/GM EXTERNAL CREAM Apply to rash 2-3 times a day and may repeat as needed NYSTATIN 44918292872 No Longer Active Piotr Daley DO Active WARFARIN SODIUM 4 MG ORAL TABLET 1 tablet by mouth daily WARFARIN SODIUM 75814498495 Active Sirisha Chen LPN Active MELOXICAM 15 MG ORAL TABLET 1 po q day for pain with food MELOXICAM 13396662341 Active Piotr Daley DO Active PREDNISONE 10 MG ORAL TABLET 1 tablet by mouth daily PREDNISONE 84016297220 No Longer Active Emelyn Norris Active TESSALON PERLES 100 MG ORAL CAPSULE 1-2 tablet by mouth 3 times daily 04/16 BENZONATATE 12169834004 No Longer Active Emelyn Norris Active PREDNISONE 20 MG ORAL TABLET two tabs by mouth today, then one tab by mouth days two and three PREDNISONE 11145344472 No Longer Active Piotr Daley DO Active CYCLOBENZAPRINE HCL 10 MG ORAL TABLET 1 tablet by mouth three times daily as needed for muscle spasm/pain CYCLOBENZAPRINE HCL 60850615093 Active Sirisha Chen LPN Active ZITHROMAX 250 MG ORAL TABLET Take two (2 ) tablets day one, then one (1) tablet a day for four (4) more days AZITHROMYCIN 30012786130 No Longer Active Piotr Daley DO Active PROAIR HFA 108 (90 BASE) MCG/ACT INHALATION AEROSOL SOLUTION 1-2 puffs four times a day as needed ALBUTEROL SULFATE 06032643723 No Longer Active Emelyn Russel [employer] Active DOXYCYCLINE HYCLATE 100 MG ORAL CAPSULE 1 cap by mouth BID x10 days DOXYCYCLINE HYCLATE 36663211964 No Longer Active Nella Harris APRN Active PREDNISONE 20 MG ORAL TABLET 2 tabs daily for 3 days, 1 tab daily for 3 days, 1/2 tab daily for 2 days PREDNISONE 42509211181 No Longer Active Matthew Rangel MD Active TRAMADOL HCL 50 MG ORAL TABLET 1 po tid with ES Tylenol TRAMADOL HCL 24409413010 No Longer Active Matthew Rangel MD Active GABAPENTIN 300 MG ORAL CAPSULE 1 po q hs for nerve pain GABAPENTIN 16459109696 No Longer Active Matthew Rangel MD Active PREDNISONE 20 MG ORAL TABLET 2 tablets today, then 1 tablet days 2 through 4 PREDNISONE 38163066662 No Longer Active Piotr Daley DO Active AZITHROMYCIN 250 MG ORAL TABLET 2 po qd x 1 day, then 1 po qd x 4 days 07/12 AZITHROMYCIN 94393763845 No Longer Active Piotr Daley DO Active IBUPROFEN 800 MG ORAL TABLET 1 tab every 8 hours as needed 07/12 IBUPROFEN 11944633401 No Longer Active Piotr Daley DO Active LOMOTIL 2.5-0.025 MG ORAL TABLET 1 to 2 four times a day as needed for diarrhea DIPHENOXYLATE-ATROPINE 58795219877 No Longer Active Piotr Daley DO Active WARFARIN SODIUM 4 MG ORAL TABLET 1 tab every evening WARFARIN SODIUM 91516478542 No Longer Active Piotr Daley DO Active PREDNISONE 20 MG ORAL TABLET 1 tablet twice daily for 2 days, then 1 tablet once daily for 2 days PREDNISONE 60318805582 No Longer Active Piotr Daley DO Active PROMETHAZINE HCL 25 MG ORAL TABLET 1 four times a day as needed for nausea/ vomiting PROMETHAZINE HCL 01596107091 No Longer Active Piotr Daley DO Active TUSSIONEX PENNKINETIC ER 10-8 MG/5ML ORAL SUSPENSION EXTENDED RELEASE 5ml po q12hr PRN Cough HYDROCOD POLST-CHLORPHEN POLST 30238188119 No Longer Active Piotr Daley DO Active AZITHROMYCIN 250 MG ORAL TABLET 2 po qd x 1 day, then 1 po qd x 4 days 10/13 AZITHROMYCIN 52671845210 No Longer Active Piotr Daley DO Active AZITHROMYCIN 250 MG ORAL TABLET 2 po qd x 1 day, then 1 po qd x 4 days 05/07 AZITHROMYCIN 05857520966 No Longer Active Piotr Daley DO Active LISINOPRIL-HYDROCHLOROTHIAZIDE 10-12.5 MG ORAL TABLET 1 tab by mouth daily LISINOPRIL-HYDROCHLOROTHIAZIDE 89856673074 Active Sirisha Gustavo E D TECH Active LISINOPRIL 10 MG ORAL TABLET 1/2-1 tab po every other day LISINOPRIL 47509000484 No Longer Active Piotr Daley DO Active VENTOLIN HFA 108 (90 Base) MCG/ACT INHALATION AEROSOL SOLUTION 2 puffs four times a day PRN cough ALBUTEROL SULFATE 77719311211 No Longer Active Piotr Daley DO Active NYSTATIN-TRIAMCINOLONE 429766-4.1 UNIT/GM-% EXTERNAL CREAM Apply to area BID NYSTATIN-TRIAMCINOLONE 20755304061 No Longer Active Alena Chavira E D TECH Active PHISOHEX 3 % LIQD Use Directed HEXACHLOROPHENE 37746187746 No Longer Active Sandra Rhododendron Active AZITHROMYCIN 250 MG ORAL TABLET 2 po qd x 1 day, then 1 po qd x 4 days 10/21 AZITHROMYCIN 40514976936 No Longer Active Katrina Rinaldi MD PhD Active AZITHROMYCIN 250 MG ORAL TABLET 2 po qd x 1 day, then 1 po qd x 4 days 10/16 AZITHROMYCIN 86757592561 No Longer Active Piotr Daley DO Active AZITHROMYCIN 500 MG INTRAVENOUS SOLUTION RECONSTITUTED 1 po q day AZITHROMYCIN 18242959997 No Longer Active Piotr Daley DO Active NYSTATIN-TRIAMCINOLONE 035351-3.1 UNIT/GM-% EXTERNAL CREAM apply bid NYSTATIN-TRIAMCINOLONE 39421428385 No Longer Active Piotr Daley DO Active IBUPROFEN 800 MG ORAL TABLET 1 po q 8 hours prn pain sparinly IBUPROFEN 77186776306 No Longer Active Piotr Daley DO Active VITAMIN D3 5000 UNIT ORAL CAPSULE 1 po daily CHOLECALCIFEROL 49214331978 Active Piotr Daley DO Active IBUPROFEN 800 MG ORAL TABLET 1 po q 8 hours prn pain sparinly IBUPROFEN 800 MG ORAL TABLET 894103 IBUPROFEN Inactive NYSTATIN-TRIAMCINOLONE 785164-1.1 UNIT/GM-% EXTERNAL CREAM apply bid NYSTATIN-TRIAMCINOLONE 022016-0.1 UNIT/GM-% EXTERNAL CREAM 6651387 NYSTATIN-TRIAMCINOLONE Inactive AZITHROMYCIN 500 MG INTRAVENOUS SOLUTION RECONSTITUTED 1 po q day AZITHROMYCIN 500 MG INTRAVENOUS SOLUTION RECONSTITUTED 19286163232 AZITHROMYCIN Inactive VENTOLIN HFA 108 (90 Base) MCG/ACT INHALATION AEROSOL SOLUTION 2 puffs four times a day PRN cough VENTOLIN HFA 108 (90 Base) MCG/ ACT INHALATION AEROSOL SOLUTION ALBUTEROL SULFATE Inactive LISINOPRIL 10 MG ORAL TABLET 1/2-1 tab po every other day LISINOPRIL 10 MG ORAL TABLET 444796 LISINOPRIL Inactive TUSSIONEX PENNKINETIC ER 10-8 MG/5ML ORAL SUSPENSION EXTENDED RELEASE 5ml po q12hr PRN Cough TUSSIONEX PENNKINETIC ER 10-8 MG/5ML ORAL SUSPENSION EXTENDED RELEASE HYDROCOD POLST-CHLORPHEN POLST Inactive PROMETHAZINE HCL 25 MG ORAL TABLET 1 four times a day as needed for nausea/ vomiting PROMETHAZINE HCL 25 MG ORAL TABLET 684448 PROMETHAZINE HCL Inactive PREDNISONE 20 MG ORAL TABLET 1 tablet twice daily for 2 days, then 1 tablet once daily for 2 days PREDNISONE 20 MG ORAL TABLET 953600 PREDNISONE Inactive WARFARIN SODIUM 4 MG ORAL TABLET 1 tab every evening WARFARIN SODIUM 4 MG ORAL TABLET 582959 WARFARIN SODIUM Inactive LOMOTIL 2.5-0.025 MG ORAL TABLET 1 to 2 four times a day as needed for diarrhea LOMOTIL 2.5-0.025 MG ORAL TABLET 3721549 DIPHENOXYLATE-ATROPINE Inactive IBUPROFEN 800 MG ORAL TABLET 1 tab every 8 hours as needed 07/12 IBUPROFEN 800 MG ORAL TABLET 873404 IBUPROFEN Inactive PREDNISONE 20 MG ORAL TABLET 2 tablets today, then 1 tablet days 2 through 4 PREDNISONE 20 MG ORAL TABLET 457318 PREDNISONE Inactive GABAPENTIN 300 MG ORAL CAPSULE 1 po q hs for nerve pain GABAPENTIN 300 MG ORAL CAPSULE 032733 GABAPENTIN Inactive TRAMADOL HCL 50 MG ORAL TABLET 1 po tid with ES Tylenol TRAMADOL HCL 50 MG ORAL TABLET 487613 TRAMADOL HCL Inactive PROAIR HFA 108 (90 BASE) MCG/ACT INHALATION AEROSOL SOLUTION 1-2 puffs four times a day as needed PROAIR HFA 108 (90 BASE) MCG/ACT INHALATION AEROSOL SOLUTION ALBUTEROL SULFATE Inactive PREDNISONE 20 MG ORAL TABLET two tabs by mouth today, then one tab by mouth days two and three PREDNISONE 20 MG ORAL TABLET 220934 PREDNISONE Inactive TESSALON PERLES 100 MG ORAL CAPSULE 1-2 tablet by mouth 3 times daily 04/16 TESSALON PERLES 100 MG ORAL CAPSULE 646707 BENZONATATE Inactive PREDNISONE 10 MG ORAL TABLET 1 tablet by mouth daily PREDNISONE 10 MG ORAL TABLET 497432 PREDNISONE Inactive NYSTATIN 119556 UNIT/GM EXTERNAL CREAM Apply to rash 2-3 times a day and may repeat as needed NYSTATIN 000129 UNIT/GM EXTERNAL CREAM 620751 NYSTATIN Inactive TRIAMCINOLONE ACETONIDE 0.1 % EXTERNAL CREAM apply bid sparingly to rash 2017 TRIAMCINOLONE ACETONIDE 0.1 % EXTERNAL CREAM 7757842 TRIAMCINOLONE ACETONIDE Inactive AZITHROMYCIN 250 MG ORAL TABLET 2 po qd x 1 day, then 1 po qd x 4 days 10/16 AZITHROMYCIN 250 MG ORAL TABLET 874810 AZITHROMYCIN Inactive AZITHROMYCIN 250 MG ORAL TABLET 2 po qd x 1 day, then 1 po qd x 4 days 10/21 AZITHROMYCIN 250 MG ORAL TABLET 378046 AZITHROMYCIN Inactive NYSTATIN-TRIAMCINOLONE 498953-5.1 UNIT/GM-% EXTERNAL CREAM Apply to area BID NYSTATIN-TRIAMCINOLONE 171390-8.1 UNIT/GM-% EXTERNAL CREAM 4453436 NYSTATIN-TRIAMCINOLONE Inactive AZITHROMYCIN 250 MG ORAL TABLET 2 po qd x 1 day, then 1 po qd x 4 days 05/07 AZITHROMYCIN 250 MG ORAL TABLET 246119 AZITHROMYCIN Inactive AZITHROMYCIN 250 MG ORAL TABLET 2 po qd x 1 day, then 1 po qd x 4 days 10/13 AZITHROMYCIN 250 MG ORAL TABLET 912995 AZITHROMYCIN Inactive AZITHROMYCIN 250 MG ORAL TABLET 2 po qd x 1 day, then 1 po qd x 4 days 07/12 AZITHROMYCIN 250 MG ORAL TABLET 702275 AZITHROMYCIN Inactive PREDNISONE 20 MG ORAL TABLET 2 tabs daily for 3 days, 1 tab daily for 3 days, 1/2 tab daily for 2 days PREDNISONE 20 MG ORAL TABLET 219802 PREDNISONE Inactive DOXYCYCLINE HYCLATE 100 MG ORAL CAPSULE 1 cap by mouth BID x10 days DOXYCYCLINE HYCLATE 100 MG ORAL CAPSULE 1798240 DOXYCYCLINE HYCLATE Inactive ZITHROMAX 250 MG ORAL TABLET Take two (2 ) tablets day one, then one (1) tablet a day for four (4) more days ZITHROMAX 250 MG ORAL TABLET 376260 AZITHROMYCIN Inactive Advance Directives Directive Description Start [...] 0.03 ng/mL 0.00-4.00 sodium, serum 141 mmol/L 843-680 6517/12/17 carbon dioxide, venous blood 30.9 mmol/L 21.0-32.0 [...] 0-29 Encounters Code Encounter Date Provider Facility CPT-54404 [id number] Vst-Est Level III 14:38:24 BACTERIOLOGY RESEARCH ASSISTANT Piotr Daley [facility] CPT-20621 [id number] Vst-Est Level IV 08:51:04 BACTERIOLOGY RESEARCH ASSISTANT Piotr Daley [facility] CPT-90200 [id number] Vst-Est Level III 14:29:05 CDT Piotr Wilson [facility] CPT-01354 Level 3 Est. Patient 15:59:25 BACTERIOLOGY RESEARCH ASSISTANT Piotr Wilson [facility] CPT-56491 Level 3 Est. Patient 12:33:59 BACTERIOLOGY RESEARCH ASSISTANT Piotr Wilson [facility] CPT-13726 Level 3 Est. Patient 15:56:17 BACTERIOLOGY RESEARCH ASSISTANT Piotr Daley [facility] CPT-81304 Level 3 Est. Patient 10:34:54 BACTERIOLOGY RESEARCH ASSISTANT Piotr Daley [facility] CPT-55689 Level 3 Est. Patient 17:10:19 CDT Nella Harris APRN [facility] CPT-82519 Level 3 Est. Patient 10:48:17 BACTERIOLOGY RESEARCH ASSISTANT Matthew Rangel MD [facility] CPT-67995 Level 4 Est. Patient 17:15:07 BACTERIOLOGY RESEARCH ASSISTANT Piotr Wilson [facility] CPT-66542 Level 3 Est. Patient 12:46:13 BACTERIOLOGY RESEARCH ASSISTANT Piotr Wilson [facility] CPT-55348 Level 3 Est. Patient 15:14:31 BACTERIOLOGY RESEARCH ASSISTANT Piotr Daley [facility] CPT-10173 Level 3 Est. Patient 09:20:13 BACTERIOLOGY RESEARCH ASSISTANT Piotr Katie Edi [facility] CPT-51620 Level 3 Est. Patient 09:49:40 CDT Piotr Daley [facility] CPT-84679 Level 3 Est. Patient 16:28:11 CDT Piotr Daley [facility] CPT-95388 Level 3 Est. Patient 12:41:58 BACTERIOLOGY RESEARCH ASSISTANT Piotr Katie Daley [facility] CPT-09908 Level 3 Est. Patient 09:21:24 CDT Piotr Wilson Edi [facility] CPT-52535 Level 3 Est. Patient 09:21:11 CDT Piotr Katie Daley [facility] CPT-06938 Level 3 Est. Patient 11:16:29 BACTERIOLOGY RESEARCH ASSISTANT Piotr Daley [facility] CPT-04244 Level 3 Est. Patient 18:40:19 BACTERIOLOGY RESEARCH ASSISTANT Piotr Daley [facility] CPT-19317 Level 3 Est. Patient 19:30:50 CDT Piotr Daley [facility] CPT-55821 Level 3 Est. Patient 22:06:44 CDT Katrina Rinaldi MD PhD [facility] CPT-49026 Level 3 Est. Patient 14:20:00 CDT Piotr Daley [facility] CPT-15742 Level 3 Est. Patient 14:15:22 BACTERIOLOGY RESEARCH ASSISTANT Piotr Daley [facility] CPT-16871 Level 3 Est. Patient 20:19:57 BACTERIOLOGY RESEARCH ASSISTANT Piotr Daley [facility] CPT-28338 Level 3 Est. Patient 16:44:32 CDT Piotr Wilson [facility] CPT-01842 Level 3 Est. Patient 08:48:46 BACTERIOLOGY RESEARCH ASSISTANT Piotr Daley [facility] CPT-97818 Level 3 Est. Patient 21:01:21 CDT Piotr Wilson Edi [facility] Procedures Code Procedure Name Date Entry Date Standard Description CPT-93834 EKG Trac and Interp - XRAY USE ONLY 10:03:07 CDT 07/14 CPT-Cryo Cryotherapy 08:51:04 BACTERIOLOGY RESEARCH ASSISTANT CPT-G0439 Subsequent Annual Wellness Exam 08:51:04 [facility] CPT-03340 Sacroiliac jt < 3V - XRAY USE ONLY 16:45:19 BACTERIOLOGY RESEARCH ASSISTANT 05/09 CPT-14369 LS spine comp w obliques - XRAY USE ONLY 14:52:26 [facility] CPT-37390 Chest, 2 views 12:55:58 BACTERIOLOGY RESEARCH ASSISTANT CPT-G0439 Subsequent Annual Wellness Exam 10:34:52 BACTERIOLOGY RESEARCH ASSISTANT CPT-66164 BMP - LAB USE ONLY 17:19:11 BACTERIOLOGY RESEARCH ASSISTANT CPT-35716 PT/INR - LAB USE ONLY 17:19:10 [facility] CPT-34459 Venipuncture Draw Fee 17:19:10 [facility] CPT-75142 PT/INR - LAB USE ONLY 08:12:25 [facility] CPT-68425 Venipuncture Draw Fee 08:12:24 BACTERIOLOGY RESEARCH ASSISTANT CPT-86739 Venipuncture Draw Fee 11:31:07 BACTERIOLOGY RESEARCH ASSISTANT CPT-18284 TPSA - LAB USE ONLY 11:31:07 BACTERIOLOGY RESEARCH ASSISTANT CPT-94147 PT/INR - LAB USE ONLY 11:31:07 BACTERIOLOGY RESEARCH ASSISTANT CPT-G0439 Subsequent Annual Wellness Exam 09:59:29 BACTERIOLOGY RESEARCH ASSISTANT CPT-04343 Creatinine - LAB USE ONLY 14:37:55 BACTERIOLOGY RESEARCH ASSISTANT CPT-75261 PT/INR - LAB USE ONLY 14:37:55 BACTERIOLOGY RESEARCH ASSISTANT CPT-73214 Venipuncture Draw Fee 14:37:55 BACTERIOLOGY RESEARCH ASSISTANT CPT-67952 LS spine comp w obliques - XRAY USE ONLY 12:59:25 BACTERIOLOGY RESEARCH ASSISTANT CPT-79134 PT/INR - LAB USE ONLY 13:49:20 CDT CPT-84272 Venipuncture Draw Fee 13:49:19 CDT CPT-29335 PT/INR - LAB USE ONLY 15:48:49 CDT CPT-86975 Venipuncture Draw Fee 15:48:49 CDT CPT-87315 Venipuncture Draw Fee 11:31:59 CDT CPT-41208 PT/INR - LAB USE ONLY 11:31:59 CDT CPT-06431 Venipuncture Draw Fee 13:29:15 CDT CPT-70074 Thoracolumbar AP/Lat 15:19:19 BACTERIOLOGY RESEARCH ASSISTANT CPT-G0438 Initial Annual Wellness Exam 12:18:54 BACTERIOLOGY RESEARCH ASSISTANT CPT-24315 Knee 3V 09:57:38 CDT CPT-OV Office Visit 15:45:01 BACTERIOLOGY RESEARCH ASSISTANT CPT-87791 Abd compl w upright 17:10:25 CDT
--- OUTSIDE RECORDS SUMMARY | 2018-07-18 07:09 | XMS REPORT | Clinical Summary ---
Author Author Admin, [employer] Address Unknown Phone Unavailable Allergies, Adverse Reactions, [...] Coronary atherosclerosis of unspecified type of vessel, [facility] or graft Back pain, thoracic region, left [...] THROMBOPHLEBITIS, LEG, 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 Inactive Sirisha Chen CLINICAL PHARMACY TECHNICIAN DEEP VENOUS THROMBOPHLEBITIS, LEG, 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 Inactive Sirisha Chen CLINICAL PHARMACY TECHNICIAN Seborrheic keratosis ICD-702.19 Inactive Sirisha Chen CLINICAL PHARMACY TECHNICIAN Bronchitis-Acute ICD-466.0 Inactive Piotr Daley DO Leg pain, right ICD-729.5 Inactive Sirisha Chen CLINICAL PHARMACY TECHNICIAN Right leg pain ICD-729.5 Inactive Sirisha Chen CLINICAL PHARMACY TECHNICIAN Bronchitis-Acute ICD-466.0 Inactive Sirisha Chen CLINICAL PHARMACY TECHNICIAN Knee pain, left ICD-719.46 Inactive Sirisha Chen CLINICAL PHARMACY TECHNICIAN Actinic keratoses ICD-702.0 Inactive Sirisha Chen CLINICAL PHARMACY TECHNICIAN Back pain, thoracic region, left ICD-724.1 Inactive Piotr Daley DO Thoracic back pain ICD-724.5 Inactive Sirisha Chen CLINICAL PHARMACY TECHNICIAN Back pain lumbar ICD-724.2 Inactive Sirisha Chen CLINICAL PHARMACY TECHNICIAN Insect bite ICD-919.4 Inactive Sirisha Chen CLINICAL PHARMACY TECHNICIAN Pruritus ICD-698.9 Inactive Sirisha Chen CLINICAL PHARMACY TECHNICIAN 04/09 Bronchitis-Acute ICD-466.0 Inactive Sirisha Chen CLINICAL PHARMACY TECHNICIAN Dyspnea ICD-786.09 Inactive Sirisha Gustavo LOO 05/09 Pes anserinus bursitis, right ICD-726.61 Inactive Piotr Daley DO Medication List Medication Instructions Start Date Stop Date Generic Name NDC Status Provider Patient Instruction TRIAMCINOLONE ACETONIDE 0.1 % EXTERNAL CREAM apply bid sparingly to rash 2017 TRIAMCINOLONE ACETONIDE 51993891941 No Longer Active Piotr Daley DO Active NYSTATIN 461965 UNIT/GM EXTERNAL CREAM Apply to rash 2-3 times a day and may repeat as needed NYSTATIN 01450112409 No Longer Active Piotr Daley DO Active WARFARIN SODIUM 4 MG ORAL TABLET 1 tablet by mouth daily WARFARIN SODIUM 83052819511 Active Sirisha Chen LPN Active MELOXICAM 15 MG ORAL TABLET 1 po q day for pain with food MELOXICAM 24170170116 Active iPotr Daley DO Active PREDNISONE 10 MG ORAL TABLET 1 tablet by mouth daily PREDNISONE 83152286708 No Longer Active Emelyn Norris Active TESSALON PERLES 100 MG ORAL CAPSULE 1-2 tablet by mouth 3 times daily 04/16 BENZONATATE 70249554098 No Longer Active Emelyn Norris Active PREDNISONE 20 MG ORAL TABLET two tabs by mouth today, then one tab by mouth days two and three PREDNISONE 29170546473 No Longer Active Piotr Daley DO Active CYCLOBENZAPRINE HCL 10 MG ORAL TABLET 1 tablet by mouth three times daily as needed for muscle spasm/pain CYCLOBENZAPRINE HCL 15647052713 Active Sirisha Chen LPN Active ZITHROMAX 250 MG ORAL TABLET Take two (2 ) tablets day one, then one (1) tablet a day for four (4) more days AZITHROMYCIN 34067765572 No Longer Active Piotr Daley DO Active PROAIR HFA 108 (90 BASE) MCG/ACT INHALATION AEROSOL SOLUTION 1-2 puffs four times a day as needed ALBUTEROL SULFATE 86207345465 No Longer Active Emelyn Russel [employer] Active DOXYCYCLINE HYCLATE 100 MG ORAL CAPSULE 1 cap by mouth BID x10 days DOXYCYCLINE HYCLATE 07860557443 No Longer Active Nella Harris APRN Active PREDNISONE 20 MG ORAL TABLET 2 tabs daily for 3 days, 1 tab daily for 3 days, 1/2 tab daily for 2 days PREDNISONE 33535478426 No Longer Active Matthew Rangel MD Active TRAMADOL HCL 50 MG ORAL TABLET 1 po tid with ES Tylenol TRAMADOL HCL 45962617009 No Longer Active Matthew Rangel MD Active GABAPENTIN 300 MG ORAL CAPSULE 1 po q hs for nerve pain GABAPENTIN 66816663252 No Longer Active Matthew Rangel MD Active PREDNISONE 20 MG ORAL TABLET 2 tablets today, then 1 tablet days 2 through 4 PREDNISONE 92555121330 No Longer Active Piotr Daley DO Active AZITHROMYCIN 250 MG ORAL TABLET 2 po qd x 1 day, then 1 po qd x 4 days 07/12 AZITHROMYCIN 31219953269 No Longer Active Piotr Daley DO Active IBUPROFEN 800 MG ORAL TABLET 1 tab every 8 hours as needed 07/12 IBUPROFEN 74780381998 No Longer Active Piotr Daley DO Active LOMOTIL 2.5-0.025 MG ORAL TABLET 1 to 2 four times a day as needed for diarrhea DIPHENOXYLATE-ATROPINE 39206821894 No Longer Active Piotr Daley DO Active WARFARIN SODIUM 4 MG ORAL TABLET 1 tab every evening WARFARIN SODIUM 36114302589 No Longer Active Piotr Daley DO Active PREDNISONE 20 MG ORAL TABLET 1 tablet twice daily for 2 days, then 1 tablet once daily for 2 days PREDNISONE 11288368182 No Longer Active Piotr Daley DO Active PROMETHAZINE HCL 25 MG ORAL TABLET 1 four times a day as needed for nausea/ vomiting PROMETHAZINE HCL 19965214070 No Longer Active Piotr Daley DO Active TUSSIONEX PENNKINETIC ER 10-8 MG/5ML ORAL SUSPENSION EXTENDED RELEASE 5ml po q12hr PRN Cough HYDROCOD POLST-CHLORPHEN POLST 46768635590 No Longer Active Piotr Daley DO Active AZITHROMYCIN 250 MG ORAL TABLET 2 po qd x 1 day, then 1 po qd x 4 days 10/13 AZITHROMYCIN 97509622719 No Longer Active Piotr Daley DO Active AZITHROMYCIN 250 MG ORAL TABLET 2 po qd x 1 day, then 1 po qd x 4 days 05/07 AZITHROMYCIN 58538784269 No Longer Active Piotr Daley DO Active LISINOPRIL-HYDROCHLOROTHIAZIDE 10-12.5 MG ORAL TABLET 1 tab by mouth daily LISINOPRIL-HYDROCHLOROTHIAZIDE 14614487379 Active Sirisha Gustavo CLINICAL PHARMACY TECHNICIAN Active LISINOPRIL 10 MG ORAL TABLET 1/2-1 tab po every other day LISINOPRIL 47792613514 No Longer Active Piotr Daley DO Active VENTOLIN HFA 108 (90 Base) MCG/ACT INHALATION AEROSOL SOLUTION 2 puffs four times a day PRN cough ALBUTEROL SULFATE 06349204453 No Longer Active Piotr Daley DO Active NYSTATIN-TRIAMCINOLONE 339947-8.1 UNIT/GM-% EXTERNAL CREAM Apply to area BID NYSTATIN-TRIAMCINOLONE 59016636568 No Longer Active Alena Chavira CLINICAL PHARMACY TECHNICIAN Active PHISOHEX 3 % LIQD Use Directed HEXACHLOROPHENE 54608520659 No Longer Active Sandra War Active AZITHROMYCIN 250 MG ORAL TABLET 2 po qd x 1 day, then 1 po qd x 4 days 10/21 AZITHROMYCIN 29106809211 No Longer Active Katrina Rinaldi MD PhD Active AZITHROMYCIN 250 MG ORAL TABLET 2 po qd x 1 day, then 1 po qd x 4 days 10/16 AZITHROMYCIN 36965176355 No Longer Active Piotr Daley DO Active AZITHROMYCIN 500 MG INTRAVENOUS SOLUTION RECONSTITUTED 1 po q day AZITHROMYCIN 79705671165 No Longer Active Piotr Daley DO Active NYSTATIN-TRIAMCINOLONE 602985-5.1 UNIT/GM-% EXTERNAL CREAM apply bid NYSTATIN-TRIAMCINOLONE 01964002436 No Longer Active Piotr Daley DO Active IBUPROFEN 800 MG ORAL TABLET 1 po q 8 hours prn pain sparinly IBUPROFEN 82291847290 No Longer Active Piotr Daley DO Active VITAMIN D3 5000 UNIT ORAL CAPSULE 1 po daily CHOLECALCIFEROL 03740508469 Active Piotr Daley DO Active IBUPROFEN 800 MG ORAL TABLET 1 po q 8 hours prn pain sparinly IBUPROFEN 800 MG ORAL TABLET 872247 IBUPROFEN Inactive NYSTATIN-TRIAMCINOLONE 209706-0.1 UNIT/GM-% EXTERNAL CREAM apply bid NYSTATIN-TRIAMCINOLONE 958635-0.1 UNIT/GM-% EXTERNAL CREAM 1667722 NYSTATIN-TRIAMCINOLONE Inactive AZITHROMYCIN 500 MG INTRAVENOUS SOLUTION RECONSTITUTED 1 po q day AZITHROMYCIN 500 MG INTRAVENOUS SOLUTION RECONSTITUTED 91608135226 AZITHROMYCIN Inactive VENTOLIN HFA 108 (90 Base) MCG/ACT INHALATION AEROSOL SOLUTION 2 puffs four times a day PRN cough VENTOLIN HFA 108 (90 Base) MCG/ ACT INHALATION AEROSOL SOLUTION ALBUTEROL SULFATE Inactive LISINOPRIL 10 MG ORAL TABLET 1/2-1 tab po every other day LISINOPRIL 10 MG ORAL TABLET 788264 LISINOPRIL Inactive TUSSIONEX PENNKINETIC ER 10-8 MG/5ML ORAL SUSPENSION EXTENDED RELEASE 5ml po q12hr PRN Cough TUSSIONEX PENNKINETIC ER 10-8 MG/5ML ORAL SUSPENSION EXTENDED RELEASE HYDROCOD POLST-CHLORPHEN POLST Inactive PROMETHAZINE HCL 25 MG ORAL TABLET 1 four times a day as needed for nausea/ vomiting PROMETHAZINE HCL 25 MG ORAL TABLET 809043 PROMETHAZINE HCL Inactive PREDNISONE 20 MG ORAL TABLET 1 tablet twice daily for 2 days, then 1 tablet once daily for 2 days PREDNISONE 20 MG ORAL TABLET 244626 PREDNISONE Inactive WARFARIN SODIUM 4 MG ORAL TABLET 1 tab every evening WARFARIN SODIUM 4 MG ORAL TABLET 010124 WARFARIN SODIUM Inactive LOMOTIL 2.5-0.025 MG ORAL TABLET 1 to 2 four times a day as needed for diarrhea LOMOTIL 2.5-0.025 MG ORAL TABLET 2631599 DIPHENOXYLATE-ATROPINE Inactive IBUPROFEN 800 MG ORAL TABLET 1 tab every 8 hours as needed 07/12 IBUPROFEN 800 MG ORAL TABLET 944372 IBUPROFEN Inactive PREDNISONE 20 MG ORAL TABLET 2 tablets today, then 1 tablet days 2 through 4 PREDNISONE 20 MG ORAL TABLET 862651 PREDNISONE Inactive GABAPENTIN 300 MG ORAL CAPSULE 1 po q hs for nerve pain GABAPENTIN 300 MG ORAL CAPSULE 050936 GABAPENTIN Inactive TRAMADOL HCL 50 MG ORAL TABLET 1 po tid with ES Tylenol TRAMADOL HCL 50 MG ORAL TABLET 408238 TRAMADOL HCL Inactive PROAIR HFA 108 (90 BASE) MCG/ACT INHALATION AEROSOL SOLUTION 1-2 puffs four times a day as needed PROAIR HFA 108 (90 BASE) MCG/ACT INHALATION AEROSOL SOLUTION ALBUTEROL SULFATE Inactive PREDNISONE 20 MG ORAL TABLET two tabs by mouth today, then one tab by mouth days two and three PREDNISONE 20 MG ORAL TABLET 152404 PREDNISONE Inactive TESSALON PERLES 100 MG ORAL CAPSULE 1-2 tablet by mouth 3 times daily 04/16 TESSALON PERLES 100 MG ORAL CAPSULE 091040 BENZONATATE Inactive PREDNISONE 10 MG ORAL TABLET 1 tablet by mouth daily PREDNISONE 10 MG ORAL TABLET 442724 PREDNISONE Inactive NYSTATIN 888439 UNIT/GM EXTERNAL CREAM Apply to rash 2-3 times a day and may repeat as needed NYSTATIN 407304 UNIT/GM EXTERNAL CREAM 231167 NYSTATIN Inactive TRIAMCINOLONE ACETONIDE 0.1 % EXTERNAL CREAM apply bid sparingly to rash 2017 TRIAMCINOLONE ACETONIDE 0.1 % EXTERNAL CREAM 5309084 TRIAMCINOLONE ACETONIDE Inactive AZITHROMYCIN 250 MG ORAL TABLET 2 po qd x 1 day, then 1 po qd x 4 days 10/16 AZITHROMYCIN 250 MG ORAL TABLET 197317 AZITHROMYCIN Inactive AZITHROMYCIN 250 MG ORAL TABLET 2 po qd x 1 day, then 1 po qd x 4 days 10/21 AZITHROMYCIN 250 MG ORAL TABLET 350744 AZITHROMYCIN Inactive NYSTATIN-TRIAMCINOLONE 902721-7.1 UNIT/GM-% EXTERNAL CREAM Apply to area BID NYSTATIN-TRIAMCINOLONE 062804-0.1 UNIT/GM-% EXTERNAL CREAM 2915151 NYSTATIN-TRIAMCINOLONE Inactive AZITHROMYCIN 250 MG ORAL TABLET 2 po qd x 1 day, then 1 po qd x 4 days 05/07 AZITHROMYCIN 250 MG ORAL TABLET 032623 AZITHROMYCIN Inactive AZITHROMYCIN 250 MG ORAL TABLET 2 po qd x 1 day, then 1 po qd x 4 days 10/13 AZITHROMYCIN 250 MG ORAL TABLET 555489 AZITHROMYCIN Inactive AZITHROMYCIN 250 MG ORAL TABLET 2 po qd x 1 day, then 1 po qd x 4 days 07/12 AZITHROMYCIN 250 MG ORAL TABLET 317164 AZITHROMYCIN Inactive PREDNISONE 20 MG ORAL TABLET 2 tabs daily for 3 days, 1 tab daily for 3 days, 1/2 tab daily for 2 days PREDNISONE 20 MG ORAL TABLET 588254 PREDNISONE Inactive DOXYCYCLINE HYCLATE 100 MG ORAL CAPSULE 1 cap by mouth BID x10 days DOXYCYCLINE HYCLATE 100 MG ORAL CAPSULE 6905746 DOXYCYCLINE HYCLATE Inactive ZITHROMAX 250 MG ORAL TABLET Take two (2 ) tablets day one, then one (1) tablet a day for four (4) more days ZITHROMAX 250 MG ORAL TABLET 566599 AZITHROMYCIN Inactive Advance Directives Directive Description Start [...] 0.03 ng/mL 0.00-4.00 sodium, serum 141 mmol/L 605-987 1804/12/17 carbon dioxide, venous blood 30.9 mmol/L 21.0-32.0 [...] 0-29 Encounters Code Encounter Date Provider Facility CPT-57515 [id number] Vst-Est Level III 14:38:24 CHIEF CREW SCHEDULER Piotr Daley [facility] CPT-04036 [id number] Vst-Est Level IV 08:51:04 CHIEF CREW SCHEDULER Piotr Daley [facility] CPT-29873 03797-Hgd Vst-Est Level III 14:29:05 CDT Piotr Wilson [facility] CPT-59969 Level 3 Est. Patient 15:59:25 CHIEF CREW SCHEDULER Piotr Wilson [facility] CPT-40460 Level 3 Est. Patient 12:33:59 CHIEF CREW SCHEDULER Piotr Wilson [facility] CPT-95449 Level 3 Est. Patient 15:56:17 CHIEF CREW SCHEDULER Piotr Daley [facility] CPT-05695 Level 3 Est. Patient 10:34:54 CHIEF CREW SCHEDULER Piotr Daley [facility] CPT-63316 Level 3 Est. Patient 17:10:19 CDT Nella Harris APRN [facility] CPT-80977 Level 3 Est. Patient 10:48:17 CHIEF CREW SCHEDULER Matthew Rangel MD [facility] CPT-75670 Level 4 Est. Patient 17:15:07 CHIEF CREW SCHEDULER Piotr Wilson [facility] CPT-89192 Level 3 Est. Patient 12:46:13 CHIEF CREW SCHEDULER Piotr Wilson [facility] CPT-33493 Level 3 Est. Patient 15:14:31 CHIEF CREW SCHEDULER Piotr Daley [facility] CPT-19048 Level 3 Est. Patient 09:20:13 CHIEF CREW SCHEDULER Piotr Katie Edi [facility] CPT-86833 Level 3 Est. Patient 09:49:40 CDT Piotr Daley [facility] CPT-35251 Level 3 Est. Patient 16:28:11 CDT Piotr Daley [facility] CPT-31341 Level 3 Est. Patient 12:41:58 CHIEF CREW SCHEDULER Piotr Katie Daley [facility] CPT-79229 Level 3 Est. Patient 09:21:24 CDT Piotr Wilson Edi [facility] CPT-71506 Level 3 Est. Patient 09:21:11 CDT Piotr Katie Daley [facility] CPT-03720 Level 3 Est. Patient 11:16:29 CHIEF CREW SCHEDULER Piotr Daley [facility] CPT-03642 Level 3 Est. Patient 18:40:19 CHIEF CREW SCHEDULER Piotr Daley [facility] CPT-31299 Level 3 Est. Patient 19:30:50 CDT Piotr Daley [facility] CPT-78354 Level 3 Est. Patient 22:06:44 CDT Katrina Rinaldi MD PhD [facility] CPT-65788 Level 3 Est. Patient 14:20:00 CDT Piotr Daley [facility] CPT-94009 Level 3 Est. Patient 14:15:22 CHIEF CREW SCHEDULER Piotr Daley [facility] CPT-44816 Level 3 Est. Patient 20:19:57 CHIEF CREW SCHEDULER Piotr Daley [facility] CPT-40844 Level 3 Est. Patient 16:44:32 CDT Piotr Wilson [facility] CPT-94907 Level 3 Est. Patient 08:48:46 CHIEF CREW SCHEDULER Piotr Daley [facility] CPT-84708 Level 3 Est. Patient 21:01:21 CDT Piotr Wilson Edi [facility] Procedures Code Procedure Name Date Entry Date Standard Description CPT-58446 EKG Trac and Interp - XRAY USE ONLY 10:03:07 CDT 07/14 CPT-Cryo Cryotherapy 08:51:04 CHIEF CREW SCHEDULER CPT-G0439 Subsequent Annual Wellness Exam 08:51:04 [facility] CPT-05124 Sacroiliac jt < 3V - XRAY USE ONLY 16:45:19 CHIEF CREW SCHEDULER 05/09 CPT-40806 LS spine comp w obliques - XRAY USE ONLY 14:52:26 [facility] CPT-22185 Chest, 2 views 12:55:58 CHIEF CREW SCHEDULER CPT-G0439 Subsequent Annual Wellness Exam 10:34:52 [employer]IEF [employer]W SCHEDULER CPT-19152 BMP - LAB USE ONLY 17:19:11 CHIEF CREW SCHEDULER CPT-64257 PT/INR - LAB USE ONLY 17:19:10 [facility] CPT-92283 Venipuncture Draw Fee 17:19:10 [facility] CPT-05072 PT/INR - LAB USE ONLY 08:12:25 [facility] CPT-98853 Venipuncture Draw Fee 08:12:24 CHIEF CREW SCHEDULER CPT-13753 Venipuncture Draw Fee 11:31:07 CHIEF CREW SCHEDULER CPT-29294 TPSA - LAB USE ONLY 11:31:07 CHIEF CREW SCHEDULER CPT-42701 PT/INR - LAB USE ONLY 11:31:07 CHIEF CREW SCHEDULER CPT-G0439 Subsequent Annual Wellness Exam 09:59:29 CHIEF [employer]W SCHEDULER CPT-54137 Creatinine - LAB USE ONLY 14:37:55 CHIEF CREW SCHEDULER CPT-44379 PT/INR - LAB USE ONLY 14:37:55 CHIEF CREW SCHEDULER CPT-05838 Venipuncture Draw Fee 14:37:55 CHIEF CREW SCHEDULER CPT-83073 LS spine comp w obliques - XRAY USE ONLY 12:59:25 CHIEF CREW SCHEDULER CPT-87697 PT/INR - LAB USE ONLY 13:49:20 CDT CPT-84706 Venipuncture Draw Fee 13:49:19 CDT CPT-93435 PT/INR - LAB USE ONLY 15:48:49 CDT CPT-67900 Venipuncture Draw Fee 15:48:49 CDT CPT-12533 Venipuncture Draw Fee 11:31:59 CDT CPT-43469 PT/INR - LAB USE ONLY 11:31:59 CDT CPT-21568 Venipuncture Draw Fee 13:29:15 CDT CPT-23173 Thoracolumbar AP/Lat 15:19:19 [employer]IEF [employer]W SCHEDULER CPT-G0438 Initial Annual Wellness Exam 12:18:54 CHIEF [employer]W SCHEDULER CPT-91708 Knee 3V 09:57:38 CDT CPT-OV Office Visit 15:45:01 CHIEF CREW SCHEDULER CPT-32826 Abd compl w upright 17:10:25 CDT
--- OUTSIDE RECORDS SUMMARY | 2018-07-18 07:10 | XMS REPORT | Clinical Summary ---
Author Author Admin, [employer] Address Unknown Phone Unavailable Allergies, Adverse Reactions, [...] a health care facility BRONCHITIS-ACUTE 466.0 Inactive iPotr Daley DO Acute bronchitis SCREENING, COLON CANCER [...] neoplasm of prostate V10.46 Active Alina Meyers [employer] Personal history of malignant neoplasm of prostate Coronary artery disease 414.00 Active Alina Meyers APRN Coronary atherosclerosis of unspecified type of vessel, [place] or graft Back pain, thoracic region, left [...] THROMBOPHLEBITIS, LEG, 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 Inactive Sirisha Chen HOSE INSPECTOR AND PATCHER DEEP VENOUS THROMBOPHLEBITIS, LEG, 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 Inactive Sirisha Chen [employer]SE INSPECTOR AND PATCHER Seborrheic keratosis ICD-702.19 Inactive Sirisha Chen [employer]SE INSPECTOR [employer] PATCHER Bronchitis-Acute ICD-466.0 Inactive Piotr Daley DO Leg pain, right ICD-729.5 Inactive Sirisha Chen HOSE INSPECTOR AND PATCHER Right leg pain ICD-729.5 Inactive Sirisha Chen HOSE INSPECTOR AND PATCHER Bronchitis-Acute ICD-466.0 Inactive Sirisha Chen HOSE INSPECTOR AND PATCHER Knee pain, left ICD-719.46 Inactive Sirisha Chen HOSE INSPECTOR AND PATCHER Actinic keratoses ICD-702.0 Inactive Sirisha Chen HOSE INSPECTOR AND PATCHER Back pain, thoracic region, left ICD-724.1 Inactive Piotr Daley DO Thoracic back pain ICD-724.5 Inactive Sirisha Chen [employer] INSPECTOR AND PATCHER Back pain lumbar ICD-724.2 Inactive Sirisha Chen HOSE INSPECTOR AND PATCHER Insect bite ICD-919.4 Inactive Sirisha Chen HOSE INSPECTOR AND PATCHER Pruritus ICD-698.9 Inactive Sirisha Chen HOSE INSPECTOR AND PATCHER 04/09 Bronchitis-Acute ICD-466.0 Inactive Sirisha Chen HOSE INSPECTOR AND PATCHER Dyspnea ICD-786.09 Inactive Sirisha Gustavo LOO 05/09 Pes anserinus bursitis, right ICD-726.61 Inactive Piotr Daley DO Medication List Medication Instructions Start Date Stop Date Generic Name ND Status Provider Patient Instruction TRIAMCINOLONE ACETONIDE 0.1 % EXTERNAL CREAM apply bid sparingly to rash 2017 TRIAMCINOLONE ACETONIDE 33578079989 No Longer Active Piotr Daley DO Active NYSTATIN 472182 UNIT/GM EXTERNAL CREAM Apply to rash 2-3 times a day and may repeat as needed NYSTATIN 09142767606 No Longer Active Piotr Daley DO Active WARFARIN SODIUM 4 MG ORAL TABLET 1 tablet by mouth daily WARFARIN SODIUM 10768587193 Active Sirisha Chen LPN Active MELOXICAM 15 MG ORAL TABLET 1 po q day for pain with food MELOXICAM 66089834689 Active Piotr Daley DO Active PREDNISONE 10 MG ORAL TABLET 1 tablet by mouth daily PREDNISONE 83663304092 No Longer Active Emelyn Norris Active TESSALON PERLES 100 MG ORAL CAPSULE 1-2 tablet by mouth 3 times daily 04/16 BENZONATATE 06537521526 No Longer Active Emelyn Norris Active PREDNISONE 20 MG ORAL TABLET two tabs by mouth today, then one tab by mouth days two and three PREDNISONE 15192637920 No Longer Active Piotr Daley DO Active CYCLOBENZAPRINE HCL 10 MG ORAL TABLET 1 tablet by mouth three times daily as needed for muscle spasm/pain CYCLOBENZAPRINE HCL 40964930339 Active Sirisha Chen LPN Active ZITHROMAX 250 MG ORAL TABLET Take two (2 ) tablets day one, then one (1) tablet a day for four (4) more days AZITHROMYCIN 04883956038 No Longer Active Piotr Daley DO Active PROAIR HFA 108 (90 BASE) MCG/ACT INHALATION AEROSOL SOLUTION 1-2 puffs four times a day as needed ALBUTEROL SULFATE 64429391855 No Longer Active Emelyn Russel Norris Active DOXYCYCLINE HYCLATE 100 MG ORAL CAPSULE 1 cap by mouth BID x10 days DOXYCYCLINE HYCLATE 19999089297 No Longer Active Nella Harris APRN Active PREDNISONE 20 MG ORAL TABLET 2 tabs daily for 3 days, 1 tab daily for 3 days, 1/2 tab daily for 2 days PREDNISONE 21853971352 No Longer Active Matthew Rangel MD Active TRAMADOL HCL 50 MG ORAL TABLET 1 po tid with ES Tylenol TRAMADOL HCL 93560547890 No Longer Active Matthew Rangel MD Active GABAPENTIN 300 MG ORAL CAPSULE 1 po q hs for nerve pain GABAPENTIN 19803896448 No Longer Active Matthew Rangel MD Active PREDNISONE 20 MG ORAL TABLET 2 tablets today, then 1 tablet days 2 through 4 PREDNISONE 65270530813 No Longer Active Piotr Daley DO Active AZITHROMYCIN 250 MG ORAL TABLET 2 po qd x 1 day, then 1 po qd x 4 days 07/12 AZITHROMYCIN 46117540513 No Longer Active Piotr Daley DO Active IBUPROFEN 800 MG ORAL TABLET 1 tab every 8 hours as needed 07/12 IBUPROFEN 35579198976 No Longer Active Piotr Daley DO Active LOMOTIL 2.5-0.025 MG ORAL TABLET 1 to 2 four times a day as needed for diarrhea DIPHENOXYLATE-ATROPINE 26583075507 No Longer Active Piotr Daley DO Active WARFARIN SODIUM 4 MG ORAL TABLET 1 tab every evening WARFARIN SODIUM 23596195107 No Longer Active Piotr Daley DO Active PREDNISONE 20 MG ORAL TABLET 1 tablet twice daily for 2 days, then 1 tablet once daily for 2 days PREDNISONE 28778599780 No Longer Active Piotr Daley DO Active PROMETHAZINE HCL 25 MG ORAL TABLET 1 four times a day as needed for nausea/ vomiting PROMETHAZINE HCL 69424811109 No Longer Active Piotr Daley DO Active TUSSIONEX PENNKINETIC ER 10-8 MG/5ML ORAL SUSPENSION EXTENDED RELEASE 5ml po q12hr PRN Cough HYDROCOD POLST-CHLORPHEN POLST 66736704482 No Longer Active Piotr Daley DO Active AZITHROMYCIN 250 MG ORAL TABLET 2 po qd x 1 day, then 1 po qd x 4 days 10/13 AZITHROMYCIN 75773474515 No Longer Active Piotr Daley DO Active AZITHROMYCIN 250 MG ORAL TABLET 2 po qd x 1 day, then 1 po qd x 4 days 05/07 AZITHROMYCIN 02271878031 No Longer Active Piotr Daley DO Active LISINOPRIL-HYDROCHLOROTHIAZIDE 10-12.5 MG ORAL TABLET 1 tab by mouth daily LISINOPRIL-HYDROCHLOROTHIAZIDE 93153138116 Active Sirisha Chen HOSE INSPECTOR AND PATCHER Active LISINOPRIL 10 MG ORAL TABLET 1/2-1 tab po every other day LISINOPRIL 09103359762 No Longer Active Piotr Daley DO Active VENTOLIN HFA 108 (90 Base) MCG/ACT INHALATION AEROSOL SOLUTION 2 puffs four times a day PRN cough ALBUTEROL SULFATE 04331346641 No Longer Active Piotr Daley DO Active NYSTATIN-TRIAMCINOLONE 604188-8.1 UNIT/GM-% EXTERNAL CREAM Apply to area BID NYSTATIN-TRIAMCINOLONE 41276937126 No Longer Active Alena Chavira HOSE INSPECTOR AND PATCHER Active PHISOHEX 3 % LIQD Use Directed HEXACHLOROPHENE 64169252166 No Longer Active Sandra [place] Active AZITHROMYCIN 250 MG ORAL TABLET 2 po qd x 1 day, then 1 po qd x 4 days 10/21 AZITHROMYCIN 53142781980 No Longer Active Katrina Rinaldi MD PhD Active AZITHROMYCIN 250 MG ORAL TABLET 2 po qd x 1 day, then 1 po qd x 4 days 10/16 AZITHROMYCIN 32173806165 No Longer Active Piotr Daley DO Active AZITHROMYCIN 500 MG INTRAVENOUS SOLUTION RECONSTITUTED 1 po q day AZITHROMYCIN 72114318413 No Longer Active Piotr Daley DO Active NYSTATIN-TRIAMCINOLONE 762921-2.1 UNIT/GM-% EXTERNAL CREAM apply bid NYSTATIN-TRIAMCINOLONE 28301882142 No Longer Active Piotr Daley DO Active IBUPROFEN 800 MG ORAL TABLET 1 po q 8 hours prn pain sparinly IBUPROFEN 54042994184 No Longer Active Piotr Daley DO Active VITAMIN D3 5000 UNIT ORAL CAPSULE 1 po daily CHOLECALCIFEROL 09300810101 Active Piotr Daley DO Active IBUPROFEN 800 MG ORAL TABLET 1 po q 8 hours prn pain sparinly IBUPROFEN 800 MG ORAL TABLET 696245 IBUPROFEN Inactive NYSTATIN-TRIAMCINOLONE 989129-7.1 UNIT/GM-% EXTERNAL CREAM apply bid NYSTATIN-TRIAMCINOLONE 265998-6.1 UNIT/GM-% EXTERNAL CREAM 7150638 NYSTATIN-TRIAMCINOLONE Inactive AZITHROMYCIN 500 MG INTRAVENOUS SOLUTION RECONSTITUTED 1 po q day AZITHROMYCIN 500 MG INTRAVENOUS SOLUTION RECONSTITUTED 24660241739 AZITHROMYCIN Inactive VENTOLIN HFA 108 (90 Base) MCG/ACT INHALATION AEROSOL SOLUTION 2 puffs four times a day PRN cough VENTOLIN HFA 108 (90 Base) MCG/ ACT INHALATION AEROSOL SOLUTION ALBUTEROL SULFATE Inactive LISINOPRIL 10 MG ORAL TABLET 1/2-1 tab po every other day LISINOPRIL 10 MG ORAL TABLET 200641 LISINOPRIL Inactive TUSSIONEX PENNKINETIC ER 10-8 MG/5ML ORAL SUSPENSION EXTENDED RELEASE 5ml po q12hr PRN Cough TUSSIONEX PENNKINETIC ER 10-8 MG/5ML ORAL SUSPENSION EXTENDED RELEASE HYDROCOD POLST-CHLORPHEN POLST Inactive PROMETHAZINE HCL 25 MG ORAL TABLET 1 four times a day as needed for nausea/ vomiting PROMETHAZINE HCL 25 MG ORAL TABLET 205120 PROMETHAZINE HCL Inactive PREDNISONE 20 MG ORAL TABLET 1 tablet twice daily for 2 days, then 1 tablet once daily for 2 days PREDNISONE 20 MG ORAL TABLET 595436 PREDNISONE Inactive WARFARIN SODIUM 4 MG ORAL TABLET 1 tab every evening WARFARIN SODIUM 4 MG ORAL TABLET 941610 WARFARIN SODIUM Inactive LOMOTIL 2.5-0.025 MG ORAL TABLET 1 to 2 four times a day as needed for diarrhea LOMOTIL 2.5-0.025 MG ORAL TABLET 6300229 DIPHENOXYLATE-ATROPINE Inactive IBUPROFEN 800 MG ORAL TABLET 1 tab every 8 hours as needed 07/12 IBUPROFEN 800 MG ORAL TABLET 206495 IBUPROFEN Inactive PREDNISONE 20 MG ORAL TABLET 2 tablets today, then 1 tablet days 2 through 4 PREDNISONE 20 MG ORAL TABLET 938779 PREDNISONE Inactive GABAPENTIN 300 MG ORAL CAPSULE 1 po q hs for nerve pain GABAPENTIN 300 MG ORAL CAPSULE 370493 GABAPENTIN Inactive TRAMADOL HCL 50 MG ORAL TABLET 1 po tid with ES Tylenol TRAMADOL HCL 50 MG ORAL TABLET 497252 TRAMADOL HCL Inactive PROAIR HFA 108 (90 BASE) MCG/ACT INHALATION AEROSOL SOLUTION 1-2 puffs four times a day as needed PROAIR HFA 108 (90 BASE) MCG/ACT INHALATION AEROSOL SOLUTION ALBUTEROL SULFATE Inactive PREDNISONE 20 MG ORAL TABLET two tabs by mouth today, then one tab by mouth days two and three PREDNISONE 20 MG ORAL TABLET 521038 PREDNISONE Inactive TESSALON PERLES 100 MG ORAL CAPSULE 1-2 tablet by mouth 3 times daily 04/16 TESSALON PERLES 100 MG ORAL CAPSULE 131541 BENZONATATE Inactive PREDNISONE 10 MG ORAL TABLET 1 tablet by mouth daily PREDNISONE 10 MG ORAL TABLET 230479 PREDNISONE Inactive NYSTATIN 345898 UNIT/GM EXTERNAL CREAM Apply to rash 2-3 times a day and may repeat as needed NYSTATIN 211497 UNIT/GM EXTERNAL CREAM 249343 NYSTATIN Inactive TRIAMCINOLONE ACETONIDE 0.1 % EXTERNAL CREAM apply bid sparingly to rash 2017 TRIAMCINOLONE ACETONIDE 0.1 % EXTERNAL CREAM 0005572 TRIAMCINOLONE ACETONIDE Inactive AZITHROMYCIN 250 MG ORAL TABLET 2 po qd x 1 day, then 1 po qd x 4 days 10/16 AZITHROMYCIN 250 MG ORAL TABLET 226436 AZITHROMYCIN Inactive AZITHROMYCIN 250 MG ORAL TABLET 2 po qd x 1 day, then 1 po qd x 4 days 10/21 AZITHROMYCIN 250 MG ORAL TABLET 908046 AZITHROMYCIN Inactive NYSTATIN-TRIAMCINOLONE 656989-7.1 UNIT/GM-% EXTERNAL CREAM Apply to area BID NYSTATIN-TRIAMCINOLONE 950662-2.1 UNIT/GM-% EXTERNAL CREAM 8315114 NYSTATIN-TRIAMCINOLONE Inactive AZITHROMYCIN 250 MG ORAL TABLET 2 po qd x 1 day, then 1 po qd x 4 days 05/07 AZITHROMYCIN 250 MG ORAL TABLET 112904 AZITHROMYCIN Inactive AZITHROMYCIN 250 MG ORAL TABLET 2 po qd x 1 day, then 1 po qd x 4 days 10/13 AZITHROMYCIN 250 MG ORAL TABLET 818293 AZITHROMYCIN Inactive AZITHROMYCIN 250 MG ORAL TABLET 2 po qd x 1 day, then 1 po qd x 4 days 07/12 AZITHROMYCIN 250 MG ORAL TABLET 423548 AZITHROMYCIN Inactive PREDNISONE 20 MG ORAL TABLET 2 tabs daily for 3 days, 1 tab daily for 3 days, 1/2 tab daily for 2 days PREDNISONE 20 MG ORAL TABLET 110958 PREDNISONE Inactive DOXYCYCLINE HYCLATE 100 MG ORAL CAPSULE 1 cap by mouth BID x10 days DOXYCYCLINE HYCLATE 100 MG ORAL CAPSULE 3366094 DOXYCYCLINE HYCLATE Inactive ZITHROMAX 250 MG ORAL TABLET Take two (2 ) tablets day one, then one (1) tablet a day for four (4) more days ZITHROMAX 250 MG ORAL TABLET 422799 AZITHROMYCIN Inactive Advance Directives Directive Description Start [...] Name Value Unit Range Description Lab Report: Comp. Metabolic Panel, CBC, Prostatic Specific Ag - Chemistry sodium, serum 141 mmol/L 844-646 1904/12/17 carbon dioxide, venous blood 30.9 mmol/L 21.0-32.0 potassium, serum 4.2 mmol/L 3.5-5.2 chloride, serum 102 mmol/L 98-107 blood glucose 100 mg/dL 65-95 urea nitrogen, blood 13 mg/dL 7-18 creatinine, serum 0.89 mg/dL 0.60-1.30 Estimated Glomerular Filtration Rate (calc) 89 (?) mL/min/1.73m2 =OR > 60 mL/min alanine aminotransferase (SGPT), serum 25 U/L -78 aspartate aminotransferase (SGOT), serum 19 U/L 15-37 calcium, serum 8.8 mg/dL 8.5-10.1 bilirubin, serum, total 0.40 mg/dL 0.00-1.00 prostate specific antigen 0.03 ng/mL 0.00-4.00 Lab Report: Comp. Metabolic Panel, CBC, Prostatic [...] 0-29 Encounters Code Encounter Date Provider Facility CPT-99042 [id number] Vst-Est Level III 14:38:24 [employer] Piotr Wilson [facility] CPT-87319 [id number] Vst-Est Level IV 08:51:04 [employer] Piotr Daley [facility] CPT-05454 [id number] Vst-Est Level III 14:29:[address] [facility] CPT-64376 Level 3 Est. Patient 15:59:25 [employer] Piotr Daley [facility] CPT-70983 Level 3 Est. Patient 12:33:59 [employer] Piotr Daley [facility] CPT-54533 Level 3 Est. Patient 15:56:17 [employer] Piotr Katie Edi [facility] CPT-70504 Level 3 Est. Patient 10:34:54 [employer] Piotr Daley [facility] CPT-47277 Level 3 Est. Patient 17:10:19 CDT Nella Harris APRN [facility] CPT-91275 Level 3 Est. Patient 10:48:17 [employer] Matthew Rangel MD [facility] CPT-05695 Level 4 Est. Patient 17:15:07 [employer] Piotr Daley [facility] CPT-01600 Level 3 Est. Patient 12:46:13 [employer] Piotr Wilson [facility] CPT-34788 Level 3 Est. Patient 15:14:31 [employer] Piotr Katie Edi [facility] CPT-36364 Level 3 Est. Patient 09:20:13 [employer] Piotr Katie Edi [facility] CPT-77610 Level 3 Est. Patient 09:49:[address] [facility] CPT-98392 Level 3 Est. Patient 16:28:11 CDT Piotr Katie Daley [facility] CPT-97124 Level 3 Est. Patient 12:41:58 [employer] Piotr Wilson Edi [facility] CPT-35405 Level 3 Est. Patient 09:21:24 CDT Piotr Wilson [facility] CPT-36438 Level 3 Est. Patient 09:21:11 CDT Piotr Wilson [facility] CPT-68308 Level 3 Est. Patient 11:16:29 [employer] Piotr Daley [facility] CPT-66889 Level 3 Est. Patient 18:40:19 [employer] Piotr Daley [facility] CPT-47004 Level 3 Est. Patient 19:30:50 CDT Piotr Daley [facility] CPT-23257 Level 3 Est. Patient 22:06:44 CDT Katrina Rinaldi MD PhD [facility] CPT-00559 Level 3 Est. Patient 14:20:00 CDT Piotr Daley [facility] CPT-35748 Level 3 Est. Patient 14:15:22 [employer] Piotr Daley [facility] CPT-14216 Level 3 Est. Patient 20:19:57 [employer] Piotr Daley [facility] CPT-70672 Level 3 Est. Patient 16:44:32 CDT Piotr Daley [facility] CPT-26591 Level 3 Est. Patient 08:48:46 [employer] Piotr Daley [facility] CPT-39054 Level 3 Est. Patient 21:01:21 CDT Piotr Daley [facility] Procedures Code Procedure Name Date Entry Date Standard Description CPT-52994 EKG Trac and Interp - XRAY USE ONLY 10:03:07 CDT 07/14 CPT-Cryo Cryotherapy 08:51:04 [employer] CPT-G0439 Subsequent Annual Wellness Exam 08:51:04 [employer] CPT-67205 Sacroiliac jt < 3V - XRAY USE ONLY 16:45:19 [employer] 05/09 CPT-91158 LS spine comp w obliques - XRAY USE ONLY 14:52:26 [employer] CPT-19554 Chest, 2 views 12:55:58 [employer] CPT-G0439 Subsequent Annual Wellness Exam 10:34:52 [employer] CPT-37229 BMP - LAB USE ONLY 17:19:11 [employer] CPT-94869 PT/INR - LAB USE ONLY 17:19:10 [employer] CPT-90077 Venipuncture Draw Fee 17:19:10 [employer] CPT-75772 PT/INR - LAB USE ONLY 08:12:25 [employer] CPT-99261 Venipuncture Draw Fee 08:12:24 [employer] CPT-27433 Venipuncture Draw Fee 11:31:07 [facility] CPT-20564 TPSA - LAB USE ONLY 11:31:07 [employer] CPT-11902 PT/INR - LAB USE ONLY 11:31:07 [facility] CPT-G0439 Subsequent Annual Wellness Exam 09:59:29 [employer] CPT-48508 Creatinine - LAB USE ONLY 14:37:55 [employer] CPT-13050 PT/INR - LAB USE ONLY 14:37:55 [facility] CPT-10341 Venipuncture Draw Fee 14:37:55 [facility] CPT-39734 LS spine comp w obliques - XRAY USE ONLY 12:59:25 [employer] CPT-04962 PT/INR - LAB USE ONLY 13:49:20 CDT CPT-90273 Venipuncture Draw Fee 13:49:19 CDT CPT-84919 PT/INR - LAB USE ONLY 15:48:49 CDT CPT-77247 Venipuncture Draw Fee 15:48:49 CDT CPT-02055 Venipuncture Draw Fee 11:31:59 CDT CPT-76626 PT/INR - LAB USE ONLY 11:31:59 CDT CPT-61304 Venipuncture Draw Fee 13:29:15 CDT CPT-00958 Thoracolumbar AP/Lat 15:19:19 [employer] CPT-G0438 Initial Annual Wellness Exam 12:18:54 [employer] CPT-36855 Knee 3V 09:57:38 CDT CPT-OV Office Visit 15:45:01 [employer] CPT-88324 Abd compl w upright 17:10:25 CDT
--- OUTSIDE RECORDS SUMMARY | 2018-07-18 07:11 | XMS REPORT | Clinical Summary ---
Author Author Admin, Bita Organization [email or web address] Address Unknown Phone Unavailable Allergies, Adverse Reactions, [...] Coronary atherosclerosis of unspecified type of vessel, [place] or graft Back pain, thoracic region, left [...] THROMBOPHLEBITIS, LEG, 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 Inactive Sirisha Chen WEBSITE ADMIN DEEP VENOUS THROMBOPHLEBITIS, LEG, 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 Inactive Sirisha Chen WEBSITE ADMIN Seborrheic keratosis ICD-702.19 Inactive Sirisha Chen WEBSITE ADMIN Bronchitis-Acute ICD-466.0 Inactive Piotr Daley DO Leg pain, right ICD-729.5 Inactive Sirisha Chen WEBSITE ADMIN Right leg pain ICD-729.5 Inactive Sirisha Chen WEBSITE ADMIN Bronchitis-Acute ICD-466.0 Inactive Sirisha Chen WEBSITE ADMIN Knee pain, left ICD-719.46 Inactive Sirisha Chen WEBSITE ADMIN Actinic keratoses ICD-702.0 Inactive Sirisha Chen WEBSITE ADMIN Back pain, thoracic region, left ICD-724.1 Inactive Piotr Daley DO Thoracic back pain ICD-724.5 Inactive Sirisha Chen WEBSITE ADMIN Back pain lumbar ICD-724.2 Inactive Sirisha Chen WEBSITE ADMIN Insect bite ICD-919.4 Inactive Sirisha Chen WEBSITE ADMIN Pruritus ICD-698.9 Inactive Sirisha Chen WEBSITE ADMIN 04/09 Bronchitis-Acute ICD-466.0 Inactive Sirisha Chen WEBSITE ADMIN Dyspnea ICD-786.09 Inactive Sirisha Gustavo LOO 05/09 Pes anserinus bursitis, right ICD-726.61 Inactive Piotr Daley DO Medication List Medication Instructions Start Date Stop Date Generic Name NDC Status Provider Patient Instruction TRIAMCINOLONE ACETONIDE 0.1 % EXTERNAL CREAM apply bid sparingly to rash 2017 TRIAMCINOLONE ACETONIDE 83052593615 No Longer Active Piotr Daley DO Active NYSTATIN 002685 UNIT/GM EXTERNAL CREAM Apply to rash 2-3 times a day and may repeat as needed NYSTATIN 58737656252 No Longer Active Piotr Daley DO Active WARFARIN SODIUM 4 MG ORAL TABLET 1 tablet by mouth daily WARFARIN SODIUM 40005370771 Active Sirisha Chen LPN Active MELOXICAM 15 MG ORAL TABLET 1 po q day for pain with food MELOXICAM 62484344684 Active Piotr Daley DO Active PREDNISONE 10 MG ORAL TABLET 1 tablet by mouth daily PREDNISONE 20969946186 No Longer Active Emelyn Norris Active TESSALON PERLES 100 MG ORAL CAPSULE 1-2 tablet by mouth 3 times daily 04/16 BENZONATATE 73650571545 No Longer Active Emelyn Norris Active PREDNISONE 20 MG ORAL TABLET two tabs by mouth today, then one tab by mouth days two and three PREDNISONE 69685977960 No Longer Active Piotr Daley DO Active CYCLOBENZAPRINE HCL 10 MG ORAL TABLET 1 tablet by mouth three times daily as needed for muscle spasm/pain CYCLOBENZAPRINE HCL 94229313212 Active Sirisha Chen LPN Active ZITHROMAX 250 MG ORAL TABLET Take two (2 ) tablets day one, then one (1) tablet a day for four (4) more days AZITHROMYCIN 39716102473 No Longer Active Piotr Daley DO Active PROAIR HFA 108 (90 BASE) MCG/ACT INHALATION AEROSOL SOLUTION 1-2 puffs four times a day as needed ALBUTEROL SULFATE 76937374455 No Longer Active Emelyn Russel [employer] Active DOXYCYCLINE HYCLATE 100 MG ORAL CAPSULE 1 cap by mouth BID x10 days DOXYCYCLINE HYCLATE 12340114949 No Longer Active Nella Harris APRN Active PREDNISONE 20 MG ORAL TABLET 2 tabs daily for 3 days, 1 tab daily for 3 days, 1/2 tab daily for 2 days PREDNISONE 01246777353 No Longer Active Matthew Rangel MD Active TRAMADOL HCL 50 MG ORAL TABLET 1 po tid with ES Tylenol TRAMADOL HCL 65899093399 No Longer Active Matthew Rangel MD Active GABAPENTIN 300 MG ORAL CAPSULE 1 po q hs for nerve pain GABAPENTIN 60143064153 No Longer Active Matthew Rangel MD Active PREDNISONE 20 MG ORAL TABLET 2 tablets today, then 1 tablet days 2 through 4 PREDNISONE 79087926388 No Longer Active Piotr Daley DO Active AZITHROMYCIN 250 MG ORAL TABLET 2 po qd x 1 day, then 1 po qd x 4 days 07/12 AZITHROMYCIN 84577445638 No Longer Active Piotr Daley DO Active IBUPROFEN 800 MG ORAL TABLET 1 tab every 8 hours as needed 07/12 IBUPROFEN 80646632384 No Longer Active Piotr Daley DO Active LOMOTIL 2.5-0.025 MG ORAL TABLET 1 to 2 four times a day as needed for diarrhea DIPHENOXYLATE-ATROPINE 57757282491 No Longer Active Piotr Daley DO Active WARFARIN SODIUM 4 MG ORAL TABLET 1 tab every evening WARFARIN SODIUM 96521973485 No Longer Active Piotr Daley DO Active PREDNISONE 20 MG ORAL TABLET 1 tablet twice daily for 2 days, then 1 tablet once daily for 2 days PREDNISONE 56897089335 No Longer Active Piotr Daley DO Active PROMETHAZINE HCL 25 MG ORAL TABLET 1 four times a day as needed for nausea/ vomiting PROMETHAZINE HCL 43131652212 No Longer Active Piotr Daley DO Active TUSSIONEX PENNKINETIC ER 10-8 MG/5ML ORAL SUSPENSION EXTENDED RELEASE 5ml po q12hr PRN Cough HYDROCOD POLST-CHLORPHEN POLST 33921381789 No Longer Active Piotr Daley DO Active AZITHROMYCIN 250 MG ORAL TABLET 2 po qd x 1 day, then 1 po qd x 4 days 10/13 AZITHROMYCIN 60518635522 No Longer Active Piotr Daley DO Active AZITHROMYCIN 250 MG ORAL TABLET 2 po qd x 1 day, then 1 po qd x 4 days 05/07 AZITHROMYCIN 28692207963 No Longer Active Piotr Daley DO Active LISINOPRIL-HYDROCHLOROTHIAZIDE 10-12.5 MG ORAL TABLET 1 tab by mouth daily LISINOPRIL-HYDROCHLOROTHIAZIDE 52176672913 Active Sirisha Gustavo WEBSITE ADMIN Active LISINOPRIL 10 MG ORAL TABLET 1/2-1 tab po every other day LISINOPRIL 71524241515 No Longer Active Piotr Daley DO Active VENTOLIN HFA 108 (90 Base) MCG/ACT INHALATION AEROSOL SOLUTION 2 puffs four times a day PRN cough ALBUTEROL SULFATE 54125687916 No Longer Active Piotr Daley DO Active NYSTATIN-TRIAMCINOLONE 038819-2.1 UNIT/GM-% EXTERNAL CREAM Apply to area BID NYSTATIN-TRIAMCINOLONE 18888125492 No Longer Active Alena Chavira WEBSITE ADMIN Active PHISOHEX 3 % LIQD Use Directed HEXACHLOROPHENE 24797218863 No Longer Active Sandra Wheaton Active AZITHROMYCIN 250 MG ORAL TABLET 2 po qd x 1 day, then 1 po qd x 4 days 10/21 AZITHROMYCIN 11669618382 No Longer Active Katrina Rinaldi MD PhD Active AZITHROMYCIN 250 MG ORAL TABLET 2 po qd x 1 day, then 1 po qd x 4 days 10/16 AZITHROMYCIN 82398638026 No Longer Active Piotr Daley DO Active AZITHROMYCIN 500 MG INTRAVENOUS SOLUTION RECONSTITUTED 1 po q day AZITHROMYCIN 46916855054 No Longer Active Piotr Daley DO Active NYSTATIN-TRIAMCINOLONE 313499-7.1 UNIT/GM-% EXTERNAL CREAM apply bid NYSTATIN-TRIAMCINOLONE 48902602599 No Longer Active Piotr Daley DO Active IBUPROFEN 800 MG ORAL TABLET 1 po q 8 hours prn pain sparinly IBUPROFEN 82672571661 No Longer Active Piotr Daley DO Active VITAMIN D3 5000 UNIT ORAL CAPSULE 1 po daily CHOLECALCIFEROL 32704504343 Active Piotr Daley DO Active IBUPROFEN 800 MG ORAL TABLET 1 po q 8 hours prn pain sparinly IBUPROFEN 800 MG ORAL TABLET 688210 IBUPROFEN Inactive NYSTATIN-TRIAMCINOLONE 414958-3.1 UNIT/GM-% EXTERNAL CREAM apply bid NYSTATIN-TRIAMCINOLONE 022710-5.1 UNIT/GM-% EXTERNAL CREAM 8747312 NYSTATIN-TRIAMCINOLONE Inactive AZITHROMYCIN 500 MG INTRAVENOUS SOLUTION RECONSTITUTED 1 po q day AZITHROMYCIN 500 MG INTRAVENOUS SOLUTION RECONSTITUTED 19141860953 AZITHROMYCIN Inactive VENTOLIN HFA 108 (90 Base) MCG/ACT INHALATION AEROSOL SOLUTION 2 puffs four times a day PRN cough VENTOLIN HFA 108 (90 Base) MCG/ ACT INHALATION AEROSOL SOLUTION ALBUTEROL SULFATE Inactive LISINOPRIL 10 MG ORAL TABLET 1/2-1 tab po every other day LISINOPRIL 10 MG ORAL TABLET 678519 LISINOPRIL Inactive TUSSIONEX PENNKINETIC ER 10-8 MG/5ML ORAL SUSPENSION EXTENDED RELEASE 5ml po q12hr PRN Cough TUSSIONEX PENNKINETIC ER 10-8 MG/5ML ORAL SUSPENSION EXTENDED RELEASE HYDROCOD POLST-CHLORPHEN POLST Inactive PROMETHAZINE HCL 25 MG ORAL TABLET 1 four times a day as needed for nausea/ vomiting PROMETHAZINE HCL 25 MG ORAL TABLET 816227 PROMETHAZINE HCL Inactive PREDNISONE 20 MG ORAL TABLET 1 tablet twice daily for 2 days, then 1 tablet once daily for 2 days PREDNISONE 20 MG ORAL TABLET 979047 PREDNISONE Inactive WARFARIN SODIUM 4 MG ORAL TABLET 1 tab every evening WARFARIN SODIUM 4 MG ORAL TABLET 728693 WARFARIN SODIUM Inactive LOMOTIL 2.5-0.025 MG ORAL TABLET 1 to 2 four times a day as needed for diarrhea LOMOTIL 2.5-0.025 MG ORAL TABLET 5463911 DIPHENOXYLATE-ATROPINE Inactive IBUPROFEN 800 MG ORAL TABLET 1 tab every 8 hours as needed 07/12 IBUPROFEN 800 MG ORAL TABLET 221440 IBUPROFEN Inactive PREDNISONE 20 MG ORAL TABLET 2 tablets today, then 1 tablet days 2 through 4 PREDNISONE 20 MG ORAL TABLET 474876 PREDNISONE Inactive GABAPENTIN 300 MG ORAL CAPSULE 1 po q hs for nerve pain GABAPENTIN 300 MG ORAL CAPSULE 896355 GABAPENTIN Inactive TRAMADOL HCL 50 MG ORAL TABLET 1 po tid with ES Tylenol TRAMADOL HCL 50 MG ORAL TABLET 982900 TRAMADOL HCL Inactive PROAIR HFA 108 (90 BASE) MCG/ACT INHALATION AEROSOL SOLUTION 1-2 puffs four times a day as needed PROAIR HFA 108 (90 BASE) MCG/ACT INHALATION AEROSOL SOLUTION ALBUTEROL SULFATE Inactive PREDNISONE 20 MG ORAL TABLET two tabs by mouth today, then one tab by mouth days two and three PREDNISONE 20 MG ORAL TABLET 111168 PREDNISONE Inactive TESSALON PERLES 100 MG ORAL CAPSULE 1-2 tablet by mouth 3 times daily 04/16 TESSALON PERLES 100 MG ORAL CAPSULE 202665 BENZONATATE Inactive PREDNISONE 10 MG ORAL TABLET 1 tablet by mouth daily PREDNISONE 10 MG ORAL TABLET 639298 PREDNISONE Inactive NYSTATIN 863354 UNIT/GM EXTERNAL CREAM Apply to rash 2-3 times a day and may repeat as needed NYSTATIN 074842 UNIT/GM EXTERNAL CREAM 326390 NYSTATIN Inactive TRIAMCINOLONE ACETONIDE 0.1 % EXTERNAL CREAM apply bid sparingly to rash 2017 TRIAMCINOLONE ACETONIDE 0.1 % EXTERNAL CREAM 3090750 TRIAMCINOLONE ACETONIDE Inactive AZITHROMYCIN 250 MG ORAL TABLET 2 po qd x 1 day, then 1 po qd x 4 days 10/16 AZITHROMYCIN 250 MG ORAL TABLET 335953 AZITHROMYCIN Inactive AZITHROMYCIN 250 MG ORAL TABLET 2 po qd x 1 day, then 1 po qd x 4 days 10/21 AZITHROMYCIN 250 MG ORAL TABLET 385797 AZITHROMYCIN Inactive NYSTATIN-TRIAMCINOLONE 943286-6.1 UNIT/GM-% EXTERNAL CREAM Apply to area BID NYSTATIN-TRIAMCINOLONE 680980-5.1 UNIT/GM-% EXTERNAL CREAM 0487057 NYSTATIN-TRIAMCINOLONE Inactive AZITHROMYCIN 250 MG ORAL TABLET 2 po qd x 1 day, then 1 po qd x 4 days 05/07 AZITHROMYCIN 250 MG ORAL TABLET 910854 AZITHROMYCIN Inactive AZITHROMYCIN 250 MG ORAL TABLET 2 po qd x 1 day, then 1 po qd x 4 days 10/13 AZITHROMYCIN 250 MG ORAL TABLET 499683 AZITHROMYCIN Inactive AZITHROMYCIN 250 MG ORAL TABLET 2 po qd x 1 day, then 1 po qd x 4 days 07/12 AZITHROMYCIN 250 MG ORAL TABLET 910433 AZITHROMYCIN Inactive PREDNISONE 20 MG ORAL TABLET 2 tabs daily for 3 days, 1 tab daily for 3 days, 1/2 tab daily for 2 days PREDNISONE 20 MG ORAL TABLET 852472 PREDNISONE Inactive DOXYCYCLINE HYCLATE 100 MG ORAL CAPSULE 1 cap by mouth BID x10 days DOXYCYCLINE HYCLATE 100 MG ORAL CAPSULE 4196486 DOXYCYCLINE HYCLATE Inactive ZITHROMAX 250 MG ORAL TABLET Take two (2 ) tablets day one, then one (1) tablet a day for four (4) more days ZITHROMAX 250 MG ORAL TABLET 174944 AZITHROMYCIN Inactive Advance Directives Directive Description Start [...] Ag - Chemistry sodium, serum 141 mmol/L 431-350 2171/12/17 carbon dioxide, venous blood 30.9 mmol/L 21.0-32.0 [...] 0-29 Encounters Code Encounter Date Provider Facility CPT-99645 [id number] Vst-Est Level III 14:38:24 SUBSTANCE ABUSE NURSE Piotr Daley [facility] CPT-84615 [id number] Vst-Est Level IV 08:51:04 SUBSTANCE ABUSE NURSE Piotr Daley [facility] CPT-10086 [id number] Vst-Est Level III 14:29:05 CDT Piotr Daley [facility] CPT-10736 Level 3 Est. Patient 15:59:25 SUBSTANCE ABUSE NURSE Piotr Daley [facility] CPT-25502 Level 3 Est. Patient 12:33:59 SUBSTANCE ABUSE NURSE Piotr Daley [facility] CPT-80507 Level 3 Est. Patient 15:56:17 SUBSTANCE ABUSE NURSE Piotr Katie Edi [facility] CPT-44614 Level 3 Est. Patient 10:34:54 SUBSTANCE ABUSE NURSE Piotr Katie Edi [facility] CPT-08881 Level 3 Est. Patient 17:10:19 CDT Nella Harris APRN [facility] CPT-47002 Level 3 Est. Patient 10:48:17 SUBSTANCE ABUSE NURSE Matthew Rangel MD [facility] CPT-39110 Level 4 Est. Patient 17:15:07 SUBSTANCE ABUSE NURSE Piotr Katie Edi [facility] CPT-44632 Level 3 Est. Patient 12:46:13 SUBSTANCE ABUSE NURSE Piotr [facility] CPT-28942 Level 3 Est. Patient 15:14:31 SUBSTANCE ABUSE NURSE Piotr Katie Edi [facility] CPT-02660 Level 3 Est. Patient 09:20:13 SUBSTANCE ABUSE NURSE Piotr Daley [facility] CPT-06734 Level 3 Est. Patient 09:49:40 CDT Piotr Daley [facility] CPT-35592 Level 3 Est. Patient 16:28:11 CDT Piotr Katie Daley [facility] CPT-93154 Level 3 Est. Patient 12:41:58 SUBSTANCE ABUSE NURSE Piotr Wilson Edi [facility] CPT-76372 Level 3 Est. Patient 09:21:24 CDT Piotr Wilson Edi [facility] CPT-91041 Level 3 Est. Patient 09:21:11 CDT Piotr [facility] CPT-26553 Level 3 Est. Patient 11:16:29 SUBSTANCE ABUSE NURSE Piotr Daley [facility] CPT-09015 Level 3 Est. Patient 18:40:19 SUBSTANCE ABUSE NURSE Piotr Daley [facility] CPT-67046 Level 3 Est. Patient 19:30:50 CDT Piotr Daley [facility] CPT-63032 Level 3 Est. Patient 22:06:44 CDT Katrina Rinaldi MD PhD [facility] CPT-89240 Level 3 Est. Patient 14:20:00 CDT Piotr Daley [facility] CPT-39701 Level 3 Est. Patient 14:15:22 SUBSTANCE ABUSE NURSE Piotr Daley [facility] CPT-39341 Level 3 Est. Patient 20:19:57 SUBSTANCE ABUSE NURSE Piotr Daley [facility] CPT-76316 Level 3 Est. Patient 16:44:32 CDT Piotr Daley [facility] CPT-82424 Level 3 Est. Patient 08:48:46 SUBSTANCE ABUSE NURSE Piotr Daley [facility] CPT-10298 Level 3 Est. Patient 21:01:21 CDT Piotr Daley [facility] Procedures Code Procedure Name Date Entry Date Standard Description CPT-77180 EKG Trac and Interp - XRAY USE ONLY 10:03:07 CDT 07/14 CPT-Cryo Cryotherapy 08:51:04 SUBSTANCE ABUSE NURSE CPT-G0439 Subsequent Annual Wellness Exam 08:51:04 SUBSTANCE ABUSE NURSE CPT-80375 Sacroiliac jt < 3V - XRAY USE ONLY 16:45:19 SUBSTANCE ABUSE NURSE 05/09 CPT-95553 LS spine comp w obliques - XRAY USE ONLY 14:52:26 SUBSTANCE ABUSE NURSE CPT-96423 Chest, 2 views 12:55:58 SUBSTANCE ABUSE NURSE CPT-G0439 Subsequent Annual Wellness Exam 10:34:52 SUBSTANCE ABUSE NURSE CPT-16603 BMP - LAB USE ONLY 17:19:11 SUBSTANCE ABUSE NURSE CPT-39140 PT/INR - LAB USE ONLY 17:19:10 SUBSTANCE ABUSE NURSE CPT-72425 Venipuncture Draw Fee 17:19:10 SUBSTANCE ABUSE NURSE CPT-33599 PT/INR - LAB USE ONLY 08:12:25 SUBSTANCE ABUSE NURSE CPT-87049 Venipuncture Draw Fee 08:12:24 SUBSTANCE ABUSE NURSE CPT-15752 Venipuncture Draw Fee 11:31:07 [facility] CPT-38411 TPSA - LAB USE ONLY 11:31:07 [facility] CPT-42365 PT/INR - LAB USE ONLY 11:31:07 [facility] CPT-G0439 Subsequent Annual Wellness Exam 09:59:29 SUBSTANCE ABUSE NURSE CPT-49789 Creatinine - LAB USE ONLY 14:37:55 [facility] CPT-77782 PT/INR - LAB USE ONLY 14:37:55 [facility] CPT-17517 Venipuncture Draw Fee 14:37:55 [facility] CPT-37449 LS spine comp w obliques - XRAY USE ONLY 12:59:25 SUBSTANCE ABUSE NURSE CPT-40581 PT/INR - LAB USE ONLY 13:49:20 CDT CPT-29185 Venipuncture Draw Fee 13:49:19 CDT CPT-68774 PT/INR - LAB USE ONLY 15:48:49 CDT CPT-78133 Venipuncture Draw Fee 15:48:49 CDT CPT-85198 Venipuncture Draw Fee 11:31:59 CDT CPT-04602 PT/INR - LAB USE ONLY 11:31:59 CDT CPT-37640 Venipuncture Draw Fee 13:29:15 CDT CPT-63358 Thoracolumbar AP/Lat 15:19:19 SUBSTANCE ABUSE NURSE CPT-G0438 Initial Annual Wellness Exam 12:18:54 SUBSTANCE ABUSE NURSE CPT-46194 Knee 3V 09:57:38 CDT CPT-OV Office Visit 15:45:01 SUBSTANCE ABUSE NURSE CPT-94817 Abd compl w upright 17:10:25 CDT
--- OUTSIDE RECORDS SUMMARY | 2018-07-18 07:12 | XMS REPORT | Clinical Summary ---
Author Author Admin, Bita Organization [employer] Address Unknown Phone Unavailable Allergies, Adverse Reactions, [...] Coronary atherosclerosis of unspecified type of vessel, shawnee or graft Back pain, thoracic region, left [...] health care facility Bronchitis-Acute 466.0 Resolved Emelyn Norris Acute bronchitis Dyspnea 786.09 Resolved Emelyn Rodriguezwillbita Other dyspnea and respiratory abnormality Sacroiliitis, right [...] Active Sirisha Chen LPN Preoperative examination, unspecified HEALTH MAINTENANCE EXAM ICD-V70.0 Inactive Katrina Rinaldi MD PhD BRONCHITIS-ACUTE ICD-466.0 Inactive Piotr Daley DO SCREENING, COLON CANCER ICD-V76.51 Inactive Katrina Rinaldi MD PhD BRONCHITIS-ACUTE ICD-466.0 Inactive Piotr Daley DO FLANK PAIN, RIGHT ICD-789.09 Inactive Katrina Rinaldi MD PhD Seborrheic keratosis ICD-702.19 Inactive Sirisha Chen PUBLIC AFFAIRS MANAGER Bronchitis-Acute ICD-466.0 Inactive Piotr Daley DO Leg pain, right ICD-729.5 Inactive Sirisha Chen PUBLIC AFFAIRS MANAGER Right leg pain ICD-729.5 Inactive Sirisha Chen PUBLIC AFFAIRS MANAGER Bronchitis-Acute ICD-466.0 Inactive Sirisha Chen PUBLIC AFFAIRS MANAGER Knee pain, left ICD-719.46 Inactive Sirisha Chen PUBLIC AFFAIRS MANAGER Actinic keratoses ICD-702.0 Inactive Sirisha Chen PUBLIC AFFAIRS MANAGER Back pain, thoracic region, left ICD-724.1 Inactive Piotr Daley DO Thoracic back pain ICD-724.5 Inactive Sirisha Chen PUBLIC AFFAIRS MANAGER Back pain lumbar ICD-724.2 Inactive Sirisha Chen PUBLIC AFFAIRS MANAGER Insect bite ICD-919.4 Inactive Sirisha Chen PUBLIC AFFAIRS MANAGER Pruritus ICD-698.9 Inactive Sirisha Chen PUBLIC AFFAIRS MANAGER 04/09 Bronchitis-Acute ICD-466.0 Inactive Sirisha Chen PUBLIC AFFAIRS MANAGER Dyspnea ICD-786.09 Inactive Sirisha Chen PUBLIC AFFAIRS MANAGER 05/09 Pes anserinus bursitis, right ICD-726.61 Inactive Piotr Daley DO DEEP VENOUS THROMBOPHLEBITIS, LEG, 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 Inactive Sirisha Chen PUBLIC AFFAIRS MANAGER DEEP VENOUS THROMBOPHLEBITIS, LEG, 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 Inactive Sirisha Chen PUBLIC AFFAIRS MANAGER Medication List Medication Instructions Start Date Stop Date Generic Name NDC Status Provider Patient Instruction TRIAMCINOLONE ACETONIDE 0.1 % EXTERNAL CREAM apply bid sparingly to rash 2017 TRIAMCINOLONE ACETONIDE 00127964208 No Longer Active Piotr Daley DO Active NYSTATIN 857049 UNIT/GM EXTERNAL CREAM Apply to rash 2-3 times a day and may repeat as needed NYSTATIN 08192193995 No Longer Active Piotr Daley DO Active WARFARIN SODIUM 4 MG ORAL TABLET 1 tablet by mouth daily WARFARIN SODIUM 45302212266 Active Sirisha Chen LPN Active MELOXICAM 15 MG ORAL TABLET 1 po q day for pain with food MELOXICAM 98987824398 Active Piotr Daley DO Active PREDNISONE 10 MG ORAL TABLET 1 tablet by mouth daily PREDNISONE 77644959870 No Longer Active Emelyn Norris Active TESSALON PERLES 100 MG ORAL CAPSULE 1-2 tablet by mouth 3 times daily 04/16 BENZONATATE 67975568291 No Longer Active Emelyn Rodriguezibbita Active PREDNISONE 20 MG ORAL TABLET two tabs by mouth today, then one tab by mouth days two and three PREDNISONE 52618605267 No Longer Active Piotr Daley DO Active CYCLOBENZAPRINE HCL 10 MG ORAL TABLET 1 tablet by mouth three times daily as needed for muscle spasm/pain CYCLOBENZAPRINE HCL 76119447110 Active Sirisha Chen LPN Active ZITHROMAX 250 MG ORAL TABLET Take two (2 ) tablets day one, then one (1) tablet a day for four (4) more days AZITHROMYCIN 49540876159 No Longer Active Piotr Daley DO Active PROAIR HFA 108 (90 BASE) MCG/ACT INHALATION AEROSOL SOLUTION 1-2 puffs four times a day as needed ALBUTEROL SULFATE 91042109324 No Longer Active Emelyn Russel Springer[place] Active DOXYCYCLINE HYCLATE 100 MG ORAL CAPSULE 1 cap by mouth BID x10 days DOXYCYCLINE HYCLATE 03008729937 No Longer Active Nella Harris APRN Active PREDNISONE 20 MG ORAL TABLET 2 tabs daily for 3 days, 1 tab daily for 3 days, 1/2 tab daily for 2 days PREDNISONE 32110166575 No Longer Active Matthew Rangel MD Active TRAMADOL HCL 50 MG ORAL TABLET 1 po tid with ES Tylenol TRAMADOL HCL 88478718138 No Longer Active Matthew Rangel MD Active GABAPENTIN 300 MG ORAL CAPSULE 1 po q hs for nerve pain GABAPENTIN 11871521268 No Longer Active Matthew Rangel MD Active PREDNISONE 20 MG ORAL TABLET 2 tablets today, then 1 tablet days 2 through 4 PREDNISONE 80205488463 No Longer Active Piotr Daley DO Active AZITHROMYCIN 250 MG ORAL TABLET 2 po qd x 1 day, then 1 po qd x 4 days 07/12 AZITHROMYCIN 64634812601 No Longer Active Piotr Daley DO Active IBUPROFEN 800 MG ORAL TABLET 1 tab every 8 hours as needed 07/12 IBUPROFEN 77931929379 No Longer Active Piotr Daley DO Active LOMOTIL 2.5-0.025 MG ORAL TABLET 1 to 2 four times a day as needed for diarrhea DIPHENOXYLATE-ATROPINE 01045242986 No Longer Active Piotr Daley DO Active WARFARIN SODIUM 4 MG ORAL TABLET 1 tab every evening WARFARIN SODIUM 46877797285 No Longer Active Piotr Daley DO Active PREDNISONE 20 MG ORAL TABLET 1 tablet twice daily for 2 days, then 1 tablet once daily for 2 days PREDNISONE 34715632520 No Longer Active Piotr Daley DO Active PROMETHAZINE HCL 25 MG ORAL TABLET 1 four times a day as needed for nausea/ vomiting PROMETHAZINE HCL 72858115686 No Longer Active Piotr Daley DO Active TUSSIONEX PENNKINETIC ER 10-8 MG/5ML ORAL SUSPENSION EXTENDED RELEASE 5ml po q12hr PRN Cough HYDROCOD POLST-CHLORPHEN POLST 21760400363 No Longer Active Piotr Daley DO Active AZITHROMYCIN 250 MG ORAL TABLET 2 po qd x 1 day, then 1 po qd x 4 days 10/13 AZITHROMYCIN 11755332923 No Longer Active Piotr Daley DO Active AZITHROMYCIN 250 MG ORAL TABLET 2 po qd x 1 day, then 1 po qd x 4 days 05/07 AZITHROMYCIN 99304346196 No Longer Active Piotr Daley DO Active LISINOPRIL-HYDROCHLOROTHIAZIDE 10-12.5 MG ORAL TABLET 1 tab by mouth daily LISINOPRIL-HYDROCHLOROTHIAZIDE 08775894203 Active Sirisha Gustavo PUBLIC AFFAIRS MANAGER Active LISINOPRIL 10 MG ORAL TABLET 1/2-1 tab po every other day LISINOPRIL 06501015967 No Longer Active Piotr Daley DO Active VENTOLIN HFA 108 (90 Base) MCG/ACT INHALATION AEROSOL SOLUTION 2 puffs four times a day PRN cough ALBUTEROL SULFATE 34774691011 No Longer Active Piotr Daley DO Active NYSTATIN-TRIAMCINOLONE 742546-2.1 UNIT/GM-% EXTERNAL CREAM Apply to area BID NYSTATIN-TRIAMCINOLONE 22089870190 No Longer Active Alena Chavira PUBLIC AFFAIRS MANAGER Active PHISOHEX 3 % LIQD Use Directed HEXACHLOROPHENE 38438992479 No Longer Active Sandra [place] Active AZITHROMYCIN 250 MG ORAL TABLET 2 po qd x 1 day, then 1 po qd x 4 days 10/21 AZITHROMYCIN 75111602835 No Longer Active Katrina Rinaldi MD PhD Active AZITHROMYCIN 250 MG ORAL TABLET 2 po qd x 1 day, then 1 po qd x 4 days 10/16 AZITHROMYCIN 02938319661 No Longer Active Piotr Daley DO Active AZITHROMYCIN 500 MG INTRAVENOUS SOLUTION RECONSTITUTED 1 po q day AZITHROMYCIN 53724946122 No Longer Active Piotr Daley DO Active NYSTATIN-TRIAMCINOLONE 058523-6.1 UNIT/GM-% EXTERNAL CREAM apply bid NYSTATIN-TRIAMCINOLONE 73076811727 No Longer Active Piotr Daley DO Active IBUPROFEN 800 MG ORAL TABLET 1 po q 8 hours prn pain sparinly IBUPROFEN 67009133985 No Longer Active Piotr Daley DO Active VITAMIN D3 5000 UNIT ORAL CAPSULE 1 po daily CHOLECALCIFEROL 55612780537 Active Piotr Daley DO Active IBUPROFEN 800 MG ORAL TABLET 1 po q 8 hours prn pain sparinly IBUPROFEN 800 MG ORAL TABLET 952955 IBUPROFEN Inactive NYSTATIN-TRIAMCINOLONE 746124-8.1 UNIT/GM-% EXTERNAL CREAM apply bid NYSTATIN-TRIAMCINOLONE 111707-2.1 UNIT/GM-% EXTERNAL CREAM 9258779 NYSTATIN-TRIAMCINOLONE Inactive AZITHROMYCIN 500 MG INTRAVENOUS SOLUTION RECONSTITUTED 1 po q day AZITHROMYCIN 500 MG INTRAVENOUS SOLUTION RECONSTITUTED 52168122342 AZITHROMYCIN Inactive VENTOLIN HFA 108 (90 Base) MCG/ACT INHALATION AEROSOL SOLUTION 2 puffs four times a day PRN cough VENTOLIN HFA 108 (90 Base) MCG/ ACT INHALATION AEROSOL SOLUTION ALBUTEROL SULFATE Inactive LISINOPRIL 10 MG ORAL TABLET 1/2-1 tab po every other day LISINOPRIL 10 MG ORAL TABLET 682253 LISINOPRIL Inactive TUSSIONEX PENNKINETIC ER 10-8 MG/5ML ORAL SUSPENSION EXTENDED RELEASE 5ml po q12hr PRN Cough TUSSIONEX PENNKINETIC ER 10-8 MG/5ML ORAL SUSPENSION EXTENDED RELEASE HYDROCOD POLST-CHLORPHEN POLST Inactive PROMETHAZINE HCL 25 MG ORAL TABLET 1 four times a day as needed for nausea/ vomiting PROMETHAZINE HCL 25 MG ORAL TABLET 929293 PROMETHAZINE HCL Inactive PREDNISONE 20 MG ORAL TABLET 1 tablet twice daily for 2 days, then 1 tablet once daily for 2 days PREDNISONE 20 MG ORAL TABLET 428275 PREDNISONE Inactive WARFARIN SODIUM 4 MG ORAL TABLET 1 tab every evening WARFARIN SODIUM 4 MG ORAL TABLET 255117 WARFARIN SODIUM Inactive LOMOTIL 2.5-0.025 MG ORAL TABLET 1 to 2 four times a day as needed for diarrhea LOMOTIL 2.5-0.025 MG ORAL TABLET 9312978 DIPHENOXYLATE-ATROPINE Inactive IBUPROFEN 800 MG ORAL TABLET 1 tab every 8 hours as needed 07/12 IBUPROFEN 800 MG ORAL TABLET 726609 IBUPROFEN Inactive PREDNISONE 20 MG ORAL TABLET 2 tablets today, then 1 tablet days 2 through 4 PREDNISONE 20 MG ORAL TABLET 857706 PREDNISONE Inactive GABAPENTIN 300 MG ORAL CAPSULE 1 po q hs for nerve pain GABAPENTIN 300 MG ORAL CAPSULE 428638 GABAPENTIN Inactive TRAMADOL HCL 50 MG ORAL TABLET 1 po tid with ES Tylenol TRAMADOL HCL 50 MG ORAL TABLET 846377 TRAMADOL HCL Inactive PROAIR HFA 108 (90 BASE) MCG/ACT INHALATION AEROSOL SOLUTION 1-2 puffs four times a day as needed PROAIR HFA 108 (90 BASE) MCG/ACT INHALATION AEROSOL SOLUTION ALBUTEROL SULFATE Inactive PREDNISONE 20 MG ORAL TABLET two tabs by mouth today, then one tab by mouth days two and three PREDNISONE 20 MG ORAL TABLET 701931 PREDNISONE Inactive TESSALON PERLES 100 MG ORAL CAPSULE 1-2 tablet by mouth 3 times daily 04/16 TESSALON PERLES 100 MG ORAL CAPSULE 887151 BENZONATATE Inactive PREDNISONE 10 MG ORAL TABLET 1 tablet by mouth daily PREDNISONE 10 MG ORAL TABLET 102824 PREDNISONE Inactive NYSTATIN 486940 UNIT/GM EXTERNAL CREAM Apply to rash 2-3 times a day and may repeat as needed NYSTATIN 660643 UNIT/GM EXTERNAL CREAM 283198 NYSTATIN Inactive TRIAMCINOLONE ACETONIDE 0.1 % EXTERNAL CREAM apply bid sparingly to rash 2017 TRIAMCINOLONE ACETONIDE 0.1 % EXTERNAL CREAM 3417337 TRIAMCINOLONE ACETONIDE Inactive AZITHROMYCIN 250 MG ORAL TABLET 2 po qd x 1 day, then 1 po qd x 4 days 10/16 AZITHROMYCIN 250 MG ORAL TABLET 223802 AZITHROMYCIN Inactive AZITHROMYCIN 250 MG ORAL TABLET 2 po qd x 1 day, then 1 po qd x 4 days 10/21 AZITHROMYCIN 250 MG ORAL TABLET 514532 AZITHROMYCIN Inactive NYSTATIN-TRIAMCINOLONE 889096-2.1 UNIT/GM-% EXTERNAL CREAM Apply to area BID NYSTATIN-TRIAMCINOLONE 809871-2.1 UNIT/GM-% EXTERNAL CREAM 6750490 NYSTATIN-TRIAMCINOLONE Inactive AZITHROMYCIN 250 MG ORAL TABLET 2 po qd x 1 day, then 1 po qd x 4 days 05/07 AZITHROMYCIN 250 MG ORAL TABLET 158122 AZITHROMYCIN Inactive AZITHROMYCIN 250 MG ORAL TABLET 2 po qd x 1 day, then 1 po qd x 4 days 10/13 AZITHROMYCIN 250 MG ORAL TABLET 485227 AZITHROMYCIN Inactive AZITHROMYCIN 250 MG ORAL TABLET 2 po qd x 1 day, then 1 po qd x 4 days 07/12 AZITHROMYCIN 250 MG ORAL TABLET 192718 AZITHROMYCIN Inactive PREDNISONE 20 MG ORAL TABLET 2 tabs daily for 3 days, 1 tab daily for 3 days, 1/2 tab daily for 2 days PREDNISONE 20 MG ORAL TABLET 673960 PREDNISONE Inactive DOXYCYCLINE HYCLATE 100 MG ORAL CAPSULE 1 cap by mouth BID x10 days DOXYCYCLINE HYCLATE 100 MG ORAL CAPSULE 9248251 DOXYCYCLINE HYCLATE Inactive ZITHROMAX 250 MG ORAL TABLET Take two (2 ) tablets day one, then one (1) tablet a day for four (4) more days ZITHROMAX 250 MG ORAL TABLET 212747 AZITHROMYCIN Inactive Advance Directives Directive Description Start [...] Ag - Chemistry sodium, serum 141 mmol/L 872-554 9442/12/17 carbon dioxide, venous blood 30.9 mmol/L 21.0-32.0 [...] 0-29 Encounters Code Encounter Date Provider Facility CPT-29224 [id number] Vst-Est Level III 14:38:24 ELECTRICAL ENGINEERING DRAFTING OFFICER Piotr Daley [facility] CPT-12324 [id number] Vst-Est Level IV 08:51:04 ELECTRICAL ENGINEERING DRAFTING OFFICER Piotr Daley [facility] CPT-61050 [id number] Vst-Est Level III 14:29:05 CDT Piotr Daley [facility] CPT-13352 Level 3 Est. Patient 15:59:25 ELECTRICAL ENGINEERING DRAFTING OFFICER Piotr Daley [facility] CPT-64510 Level 3 Est. Patient 12:33:59 ELECTRICAL ENGINEERING DRAFTING OFFICER Piotr Daley [facility] CPT-64783 Level 3 Est. Patient 15:56:17 ELECTRICAL ENGINEERING DRAFTING OFFICER Piotr Katie Edi [facility] CPT-63506 Level 3 Est. Patient 10:34:54 ELECTRICAL ENGINEERING DRAFTING OFFICER Piotr Katie Edi [facility] CPT-48721 Level 3 Est. Patient 17:10:19 CDT Nella Harris APRN [facility] CPT-85689 Level 3 Est. Patient 10:48:17 ELECTRICAL ENGINEERING DRAFTING OFFICER Matthew Rangel MD [facility] CPT-74726 Level 4 Est. Patient 17:15:07 ELECTRICAL ENGINEERING DRAFTING OFFICER Piotr Katie Edi [facility] CPT-72158 Level 3 Est. Patient 12:46:13 ELECTRICAL ENGINEERING DRAFTING OFFICER Piotr Wilson [facility] CPT-31907 Level 3 Est. Patient 15:14:31 ELECTRICAL ENGINEERING DRAFTING OFFICER Piotr Katie Edi [facility] CPT-89371 Level 3 Est. Patient 09:20:13 ELECTRICAL ENGINEERING DRAFTING OFFICER Piotr Daley [facility] CPT-08099 Level 3 Est. Patient 09:49:40 CDT Piotr Daley [facility] CPT-29390 Level 3 Est. Patient 16:28:11 CDT Piotr Katie Daley [facility] CPT-10315 Level 3 Est. Patient 12:41:58 ELECTRICAL ENGINEERING DRAFTING OFFICER Piotr Wilson Edi [facility] CPT-72055 Level 3 Est. Patient 09:21:24 CDT Piotr Wilson Edi [facility] CPT-75477 Level 3 Est. Patient 09:21:11 CDT Piotr Wilson [facility] CPT-22905 Level 3 Est. Patient 11:16:29 ELECTRICAL ENGINEERING DRAFTING OFFICER Piotr Daley [facility] CPT-25439 Level 3 Est. Patient 18:40:19 ELECTRICAL ENGINEERING DRAFTING OFFICER Piotr Daley [facility] CPT-51775 Level 3 Est. Patient 19:30:50 CDT Piotr Daley [facility] CPT-56728 Level 3 Est. Patient 22:06:44 CDT Katrina Rinaldi MD PhD [facility] CPT-59045 Level 3 Est. Patient 14:20:00 CDT Piotr Daley [facility] CPT-67864 Level 3 Est. Patient 14:15:22 ELECTRICAL ENGINEERING DRAFTING OFFICER Piotr Daley [facility] CPT-72722 Level 3 Est. Patient 20:19:57 ELECTRICAL ENGINEERING DRAFTING OFFICER Piotr Daley [facility] CPT-62700 Level 3 Est. Patient 16:44:32 CDT Piotr Daley [facility] CPT-63800 Level 3 Est. Patient 08:48:46 ELECTRICAL ENGINEERING DRAFTING OFFICER Piotr Daley [facility] CPT-06959 Level 3 Est. Patient 21:01:21 CDT Piotr Daley [facility] Procedures Code Procedure Name Date Entry Date Standard Description CPT-87152 EKG Trac and Interp - XRAY USE ONLY 10:03:07 CDT 07/14 CPT-Cryo Cryotherapy 08:51:04 ELECTRICAL ENGINEERING DRAFTING OFFICER CPT-G0439 Subsequent Annual Wellness Exam 08:51:04 ELECTRICAL ENGINEERING DRAFTING OFFICER CPT-55169 Sacroiliac jt < 3V - XRAY USE ONLY 16:45:19 ELECTRICAL ENGINEERING DRAFTING OFFICER 05/09 CPT-13454 LS spine comp w obliques - XRAY USE ONLY 14:52:26 ELECTRICAL ENGINEERING DRAFTING OFFICER CPT-55703 Chest, 2 views 12:55:58 ELECTRICAL ENGINEERING DRAFTING OFFICER CPT-G0439 Subsequent Annual Wellness Exam 10:34:52 ELECTRICAL ENGINEERING DRAFTING OFFICER CPT-40602 BMP - LAB USE ONLY 17:19:11 ELECTRICAL ENGINEERING DRAFTING OFFICER CPT-54520 PT/INR - LAB USE ONLY 17:19:10 ELECTRICAL ENGINEERING DRAFTING OFFICER CPT-90957 Venipuncture Draw Fee 17:19:10 ELECTRICAL ENGINEERING DRAFTING OFFICER CPT-15582 PT/INR - LAB USE ONLY 08:12:25 ELECTRICAL ENGINEERING DRAFTING OFFICER CPT-90662 Venipuncture Draw Fee 08:12:24 ELECTRICAL ENGINEERING DRAFTING OFFICER CPT-10267 Venipuncture Draw Fee 11:31:07 [facility] CPT-05779 TPSA - LAB USE ONLY 11:31:07 [facility] CPT-13416 PT/INR - LAB USE ONLY 11:31:07 [facility] CPT-G0439 Subsequent Annual Wellness Exam 09:59:29 ELECTRICAL ENGINEERING DRAFTING OFFICER CPT-79618 Creatinine - LAB USE ONLY 14:37:55 [facility] CPT-03316 PT/INR - LAB USE ONLY 14:37:55 [facility] CPT-46731 Venipuncture Draw Fee 14:37:55 [facility] CPT-12654 LS spine comp w obliques - XRAY USE ONLY 12:59:25 ELECTRICAL ENGINEERING DRAFTING OFFICER CPT-57603 PT/INR - LAB USE ONLY 13:49:20 CDT CPT-81402 Venipuncture Draw Fee 13:49:19 CDT CPT-45707 PT/INR - LAB USE ONLY 15:48:49 CDT CPT-99349 Venipuncture Draw Fee 15:48:49 CDT CPT-89891 Venipuncture Draw Fee 11:31:59 CDT CPT-63940 PT/INR - LAB USE ONLY 11:31:59 CDT CPT-57098 Venipuncture Draw Fee 13:29:15 CDT CPT-04152 Thoracolumbar AP/Lat 15:19:19 ELECTRICAL ENGINEERING DRAFTING OFFICER CPT-G0438 Initial Annual Wellness Exam 12:18:54 ELECTRICAL ENGINEERING DRAFTING OFFICER CPT-21136 Knee 3V 09:57:38 CDT CPT-OV Office Visit 15:45:01 ELECTRICAL ENGINEERING DRAFTING OFFICER CPT-49372 Abd compl w upright 17:10:25 CDT
--- OUTSIDE RECORDS SUMMARY | 2018-07-18 07:13 | XMS REPORT | Clinical Summary ---
Author Author Admin, [place] [employer] Address Unknown Phone Unavailable Allergies, Adverse Reactions, [...] neoplasm of prostate V10.46 Active Alina Meyers PHARMACIST MANAGER Personal history of malignant neoplasm of prostate Coronary artery disease 414.00 Active Alina Meyers APRN Coronary atherosclerosis of unspecified type of vessel, [place] or graft Back pain, thoracic region, left [...] disorder Wellness exam V70.0 Active Emelyn Goode Rachealbiat Routine general medical examination at a health care facility Bronchitis-Acute 466.0 Resolved Emelyn Norris Acute bronchitis Dyspnea 786.09 Resolved Emelyn Norris Other dyspnea and respiratory abnormality Sacroiliitis, right 720.2 Active Emelynarielle Goode Rachealbita Sacroiliitis, not elsewhere classified Pes [...] 530.81 Active Piotr Daley DO Esophageal reflux FLANK PAIN, RIGHT ICD-789.09 Inactive Katrina Rinaldi MD PhD HEALTH MAINTENANCE EXAM ICD-V70.0 Inactive Katrina Rinaldi MD PhD BRONCHITIS-ACUTE ICD-466.0 Inactive Piotr Daley DO SCREENING, COLON CANCER ICD-V76.51 Inactive Katrina Rinaldi MD PhD BRONCHITIS-ACUTE ICD-466.0 Inactive Piotr Daley DO DEEP VENOUS THROMBOPHLEBITIS, LEG, 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 Inactive Sirisha Chen NEWS WRITER DEEP VENOUS THROMBOPHLEBITIS, LEG, 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 Inactive Sirisha Chen NEWS WRITER Seborrheic keratosis ICD-702.19 Inactive Sirisha Chen NEWS WRITER Bronchitis-Acute ICD-466.0 Inactive Piotr Daley DO Leg pain, right ICD-729.5 Inactive Sirisha Chen NEWS WRITER Right leg pain ICD-729.5 Inactive Sirisha Chen NEWS WRITER Bronchitis-Acute ICD-466.0 Inactive Sirisha Chen NEWS WRITER Knee pain, left ICD-719.46 Inactive Sirisha Chen NEWS WRITER Actinic keratoses ICD-702.0 Inactive Sirisha Chen NEWS WRITER Back pain, thoracic region, left ICD-724.1 Inactive Piotr Daley DO Thoracic back pain ICD-724.5 Inactive Sirisha Chen NEWS WRITER Back pain lumbar ICD-724.2 Inactive Sirisha Chen NEWS WRITER Insect bite ICD-919.4 Inactive Sirisha Chen NEWS WRITER Pruritus ICD-698.9 Inactive Sirisha Chen NEWS WRITER 04/09 Bronchitis-Acute ICD-466.0 Inactive Sirisha Chen NEWS WRITER Dyspnea ICD-786.09 Inactive Sirisha Chen NEWS WRITER 05/09 Pes anserinus bursitis, right ICD-726.61 Inactive Piotr Daley DO Medication List Medication Instructions Start Date Stop Date Generic Name [facility] Status Provider Patient Instruction TRIAMCINOLONE ACETONIDE 0.1 % EXTERNAL CREAM apply bid sparingly to rash 2017 TRIAMCINOLONE ACETONIDE 39552549809 No Longer Active Piotr Daley DO Active NYSTATIN 473508 UNIT/GM EXTERNAL CREAM Apply to rash 2-3 times a day and may repeat as needed NYSTATIN 74091294835 No Longer Active Piotr Daley DO Active WARFARIN SODIUM 4 MG ORAL TABLET 1 tablet by mouth daily WARFARIN SODIUM 01089577739 Active Sirisha Chen LPN Active MELOXICAM 15 MG ORAL TABLET 1 po q day for pain with food MELOXICAM 47752652313 Active Piotr Daley DO Active PREDNISONE 10 MG ORAL TABLET 1 tablet by mouth daily PREDNISONE 29561101202 No Longer Active Emelyn Norris Active TESSALON PERLES 100 MG ORAL CAPSULE 1-2 tablet by mouth 3 times daily 04/16 BENZONATATE 56203957655 No Longer Active Emelyn Norris Active PREDNISONE 20 MG ORAL TABLET two tabs by mouth today, then one tab by mouth days two and three PREDNISONE 99862947623 No Longer Active Piotr Daley DO Active CYCLOBENZAPRINE HCL 10 MG ORAL TABLET 1 tablet by mouth three times daily as needed for muscle spasm/pain CYCLOBENZAPRINE HCL 06342345676 Active Sirisha Chen LPN Active ZITHROMAX 250 MG ORAL TABLET Take two (2 ) tablets day one, then one (1) tablet a day for four (4) more days AZITHROMYCIN 64710035483 No Longer Active Piotr Daley DO Active PROAIR HFA 108 (90 BASE) MCG/ACT INHALATION AEROSOL SOLUTION 1-2 puffs four times a day as needed ALBUTEROL SULFATE 43551211529 No Longer Active Emelyn Norris Active DOXYCYCLINE HYCLATE 100 MG ORAL CAPSULE 1 cap by mouth BID x10 days DOXYCYCLINE HYCLATE 49241387282 No Longer Active Nella Harris APRN Active PREDNISONE 20 MG ORAL TABLET 2 tabs daily for 3 days, 1 tab daily for 3 days, 1/2 tab daily for 2 days PREDNISONE 78391393150 No Longer Active Matthew Rangel MD Active TRAMADOL HCL 50 MG ORAL TABLET 1 po tid with ES Tylenol TRAMADOL HCL 21295720747 No Longer Active Matthew Rangel MD Active GABAPENTIN 300 MG ORAL CAPSULE 1 po q hs for nerve pain GABAPENTIN 93834732525 No Longer Active Matthew Rangel MD Active PREDNISONE 20 MG ORAL TABLET 2 tablets today, then 1 tablet days 2 through 4 PREDNISONE 20743108164 No Longer Active Piotr Daley DO Active AZITHROMYCIN 250 MG ORAL TABLET 2 po qd x 1 day, then 1 po qd x 4 days 07/12 AZITHROMYCIN 92616685050 No Longer Active Piotr Daley DO Active IBUPROFEN 800 MG ORAL TABLET 1 tab every 8 hours as needed 07/12 IBUPROFEN 34428210903 No Longer Active Piotr Daley DO Active LOMOTIL 2.5-0.025 MG ORAL TABLET 1 to 2 four times a day as needed for diarrhea DIPHENOXYLATE-ATROPINE 32831743185 No Longer Active Piotr Daley DO Active WARFARIN SODIUM 4 MG ORAL TABLET 1 tab every evening WARFARIN SODIUM 83974992477 No Longer Active Piotr Daley DO Active PREDNISONE 20 MG ORAL TABLET 1 tablet twice daily for 2 days, then 1 tablet once daily for 2 days PREDNISONE 51484655979 No Longer Active Piotr Daley DO Active PROMETHAZINE HCL 25 MG ORAL TABLET 1 four times a day as needed for nausea/ vomiting PROMETHAZINE HCL 24077786320 No Longer Active Piotr Daley DO Active TUSSIONEX PENNKINETIC ER 10-8 MG/5ML ORAL SUSPENSION EXTENDED RELEASE 5ml po q12hr PRN Cough HYDROCOD POLST-CHLORPHEN POLST 00107356898 No Longer Active Piotr Daley DO Active AZITHROMYCIN 250 MG ORAL TABLET 2 po qd x 1 day, then 1 po qd x 4 days 10/13 AZITHROMYCIN 79684429256 No Longer Active Piotr Daley DO Active AZITHROMYCIN 250 MG ORAL TABLET 2 po qd x 1 day, then 1 po qd x 4 days 05/07 AZITHROMYCIN 41975227567 No Longer Active iPotr Daley DO Active LISINOPRIL-HYDROCHLOROTHIAZIDE 10-12.5 MG ORAL TABLET 1 tab by mouth daily LISINOPRIL-HYDROCHLOROTHIAZIDE 12469101537 Active Sirisha Gustavo NEWS WRITER Active LISINOPRIL 10 MG ORAL TABLET 1/2-1 tab po every other day LISINOPRIL 31402707068 No Longer Active Piotr Daley DO Active VENTOLIN HFA 108 (90 Base) MCG/ACT INHALATION AEROSOL SOLUTION 2 puffs four times a day PRN cough ALBUTEROL SULFATE 27935808478 No Longer Active Piotr Daley DO Active NYSTATIN-TRIAMCINOLONE 779139-5.1 UNIT/GM-% EXTERNAL CREAM Apply to area BID NYSTATIN-TRIAMCINOLONE 65643423946 No Longer Active Alena Chavira NEWS WRITER Active PHISOHEX 3 % LIQD Use Directed HEXACHLOROPHENE 00759931505 No Longer Active Sandra Dublin Active AZITHROMYCIN 250 MG ORAL TABLET 2 po qd x 1 day, then 1 po qd x 4 days 10/21 AZITHROMYCIN 44783670460 No Longer Active Katrina Rinaldi MD PhD Active AZITHROMYCIN 250 MG ORAL TABLET 2 po qd x 1 day, then 1 po qd x 4 days 10/16 AZITHROMYCIN 22046641652 No Longer Active Piotr Daley DO Active AZITHROMYCIN 500 MG INTRAVENOUS SOLUTION RECONSTITUTED 1 po q day AZITHROMYCIN 79006693180 No Longer Active Piotr Daley DO Active NYSTATIN-TRIAMCINOLONE 826558-4.1 UNIT/GM-% EXTERNAL CREAM apply bid NYSTATIN-TRIAMCINOLONE 54486889000 No Longer Active Piotr Daley DO Active IBUPROFEN 800 MG ORAL TABLET 1 po q 8 hours prn pain sparinly IBUPROFEN 61476047061 No Longer Active Piotr Daley DO Active VITAMIN D3 5000 UNIT ORAL CAPSULE 1 po daily CHOLECALCIFEROL 76864481880 Active Piotr Daley DO Active IBUPROFEN 800 MG ORAL TABLET 1 po q 8 hours prn pain sparinly IBUPROFEN 800 MG ORAL TABLET 809677 IBUPROFEN Inactive NYSTATIN-TRIAMCINOLONE 995858-2.1 UNIT/GM-% EXTERNAL CREAM apply bid NYSTATIN-TRIAMCINOLONE 189874-2.1 UNIT/GM-% EXTERNAL CREAM 8465301 NYSTATIN-TRIAMCINOLONE Inactive AZITHROMYCIN 500 MG INTRAVENOUS SOLUTION RECONSTITUTED 1 po q day AZITHROMYCIN 500 MG INTRAVENOUS SOLUTION RECONSTITUTED 16688778294 AZITHROMYCIN Inactive VENTOLIN HFA 108 (90 Base) MCG/ACT INHALATION AEROSOL SOLUTION 2 puffs four times a day PRN cough VENTOLIN HFA 108 (90 Base) MCG/ ACT INHALATION AEROSOL SOLUTION ALBUTEROL SULFATE Inactive LISINOPRIL 10 MG ORAL TABLET 1/2-1 tab po every other day LISINOPRIL 10 MG ORAL TABLET 930899 LISINOPRIL Inactive TUSSIONEX PENNKINETIC ER 10-8 MG/5ML ORAL SUSPENSION EXTENDED RELEASE 5ml po q12hr PRN Cough TUSSIONEX PENNKINETIC ER 10-8 MG/5ML ORAL SUSPENSION EXTENDED RELEASE HYDROCOD POLST-CHLORPHEN POLST Inactive PROMETHAZINE HCL 25 MG ORAL TABLET 1 four times a day as needed for nausea/ vomiting PROMETHAZINE HCL 25 MG ORAL TABLET 196683 PROMETHAZINE HCL Inactive PREDNISONE 20 MG ORAL TABLET 1 tablet twice daily for 2 days, then 1 tablet once daily for 2 days PREDNISONE 20 MG ORAL TABLET 843244 PREDNISONE Inactive WARFARIN SODIUM 4 MG ORAL TABLET 1 tab every evening WARFARIN SODIUM 4 MG ORAL TABLET 204843 WARFARIN SODIUM Inactive LOMOTIL 2.5-0.025 MG ORAL TABLET 1 to 2 four times a day as needed for diarrhea LOMOTIL 2.5-0.025 MG ORAL TABLET 5788516 DIPHENOXYLATE-ATROPINE Inactive IBUPROFEN 800 MG ORAL TABLET 1 tab every 8 hours as needed 07/12 IBUPROFEN 800 MG ORAL TABLET 866637 IBUPROFEN Inactive PREDNISONE 20 MG ORAL TABLET 2 tablets today, then 1 tablet days 2 through 4 PREDNISONE 20 MG ORAL TABLET 853734 PREDNISONE Inactive GABAPENTIN 300 MG ORAL CAPSULE 1 po q hs for nerve pain GABAPENTIN 300 MG ORAL CAPSULE 493359 GABAPENTIN Inactive TRAMADOL HCL 50 MG ORAL TABLET 1 po tid with ES Tylenol TRAMADOL HCL 50 MG ORAL TABLET 600375 TRAMADOL HCL Inactive PROAIR HFA 108 (90 BASE) MCG/ACT INHALATION AEROSOL SOLUTION 1-2 puffs four times a day as needed PROAIR HFA 108 (90 BASE) MCG/ACT INHALATION AEROSOL SOLUTION ALBUTEROL SULFATE Inactive PREDNISONE 20 MG ORAL TABLET two tabs by mouth today, then one tab by mouth days two and three PREDNISONE 20 MG ORAL TABLET 834255 PREDNISONE Inactive TESSALON PERLES 100 MG ORAL CAPSULE 1-2 tablet by mouth 3 times daily 04/16 TESSALON PERLES 100 MG ORAL CAPSULE 730970 BENZONATATE Inactive PREDNISONE 10 MG ORAL TABLET 1 tablet by mouth daily PREDNISONE 10 MG ORAL TABLET 970248 PREDNISONE Inactive NYSTATIN 992032 UNIT/GM EXTERNAL CREAM Apply to rash 2-3 times a day and may repeat as needed NYSTATIN 554597 UNIT/GM EXTERNAL CREAM 934989 NYSTATIN Inactive TRIAMCINOLONE ACETONIDE 0.1 % EXTERNAL CREAM apply bid sparingly to rash 2017 TRIAMCINOLONE ACETONIDE 0.1 % EXTERNAL CREAM 9537501 TRIAMCINOLONE ACETONIDE Inactive AZITHROMYCIN 250 MG ORAL TABLET 2 po qd x 1 day, then 1 po qd x 4 days 10/16 AZITHROMYCIN 250 MG ORAL TABLET 641700 AZITHROMYCIN Inactive AZITHROMYCIN 250 MG ORAL TABLET 2 po qd x 1 day, then 1 po qd x 4 days 10/21 AZITHROMYCIN 250 MG ORAL TABLET 747814 AZITHROMYCIN Inactive NYSTATIN-TRIAMCINOLONE 810532-8.1 UNIT/GM-% EXTERNAL CREAM Apply to area BID NYSTATIN-TRIAMCINOLONE 394253-2.1 UNIT/GM-% EXTERNAL CREAM 6415420 NYSTATIN-TRIAMCINOLONE Inactive AZITHROMYCIN 250 MG ORAL TABLET 2 po qd x 1 day, then 1 po qd x 4 days 05/07 AZITHROMYCIN 250 MG ORAL TABLET 454722 AZITHROMYCIN Inactive AZITHROMYCIN 250 MG ORAL TABLET 2 po qd x 1 day, then 1 po qd x 4 days 10/13 AZITHROMYCIN 250 MG ORAL TABLET 503599 AZITHROMYCIN Inactive AZITHROMYCIN 250 MG ORAL TABLET 2 po qd x 1 day, then 1 po qd x 4 days 07/12 AZITHROMYCIN 250 MG ORAL TABLET 362295 AZITHROMYCIN Inactive PREDNISONE 20 MG ORAL TABLET 2 tabs daily for 3 days, 1 tab daily for 3 days, 1/2 tab daily for 2 days PREDNISONE 20 MG ORAL TABLET 455666 PREDNISONE Inactive DOXYCYCLINE HYCLATE 100 MG ORAL CAPSULE 1 cap by mouth BID x10 days DOXYCYCLINE HYCLATE 100 MG ORAL CAPSULE 0336203 DOXYCYCLINE HYCLATE Inactive ZITHROMAX 250 MG ORAL TABLET Take two (2 ) tablets day one, then one (1) tablet a day for four (4) more days ZITHROMAX 250 MG ORAL TABLET 886436 AZITHROMYCIN Inactive Advance Directives Directive Description Start [...] Ag - Chemistry sodium, serum 141 mmol/L 189-658 5320/12/17 carbon dioxide, venous blood 30.9 mmol/L 21.0-32.0 [...] 0-29 Encounters Code Encounter Date Provider Facility CPT-51802 [id number] Vst-Est Level III 14:38:24 DIFFUSER OPERATOR Piotr Daley [facility] CPT-51754 [id number] Vst-Est Level IV 08:51:04 DIFFUSER OPERATOR Piotr Daley [facility] CPT-27995 [id number] Vst-Est Level III 14:29:05 CDT Piotr W [facility] CPT-10733 Level 3 Est. Patient 15:59:25 DIFFUSER OPERATOR Piotr Daley [facility] CPT-31227 Level 3 Est. Patient 12:33:59 DIFFUSER OPERATOR Piotr Daley [facility] CPT-86335 Level 3 Est. Patient 15:56:17 DIFFUSER OPERATOR Piotr Daley [facility] CPT-00639 Level 3 Est. Patient 10:34:54 DIFFUSER OPERATOR Piotr Daley [facility] CPT-55927 Level 3 Est. Patient 17:10:19 CDT Nella Harris APRN [facility] CPT-55740 Level 3 Est. Patient 10:48:17 DIFFUSER OPERATOR Matthew Rangel MD [facility] CPT-79690 Level 4 Est. Patient 17:15:07 DIFFUSER OPERATOR Piotr Katie Edi [facility] CPT-36228 Level 3 Est. Patient 12:46:13 DIFFUSER OPERATOR Piotr Daley [facility] CPT-05481 Level 3 Est. Patient 15:14:31 DIFFUSER OPERATOR Piotr Daley [facility] CPT-29089 Level 3 Est. Patient 09:20:13 DIFFUSER OPERATOR Piotr Katie Edi [facility] CPT-52078 Level 3 Est. Patient 09:49:40 CDT Piotr Daley [facility] CPT-79245 Level 3 Est. Patient 16:28:11 CDT Piotr Wilson Edi [facility] CPT-53216 Level 3 Est. Patient 12:41:58 DIFFUSER OPERATOR Piotr Daley [facility] CPT-68394 Level 3 Est. Patient 09:21:24 CDT Piotr Wilson [facility] CPT-40353 Level 3 Est. Patient 09:21:11 CDT Piotr Wilson Edi [facility] CPT-29751 Level 3 Est. Patient 11:16:29 DIFFUSER OPERATOR Piotr Wilson Edi [facility] CPT-85416 Level 3 Est. Patient 18:40:19 DIFFUSER OPERATOR Piotr Daley [facility] CPT-91515 Level 3 Est. Patient 19:30:50 CDT Piotr Daley [facility] CPT-28886 Level 3 Est. Patient 22:06:44 CDT Katrina Rinaldi MD [facility] CPT-53958 Level 3 Est. Patient 14:20:00 CDT Piotr Daley [facility] CPT-07059 Level 3 Est. Patient 14:15:22 DIFFUSER OPERATOR Piotr Daley [facility] CPT-49766 Level 3 Est. Patient 20:19:57 DIFFUSER OPERATOR Piotr Daley [facility] CPT-72022 Level 3 Est. Patient 16:44:32 CDT Piotr Daley [facility] CPT-43352 Level 3 Est. Patient 08:48:46 DIFFUSER OPERATOR Piotr Daley [facility] CPT-63340 Level 3 Est. Patient 21:01:21 CDT Piotr Daley [facility] Procedures Code Procedure Name Date Entry Date Standard Description CPT-Cryo Cryotherapy 08:51:04 DIFFUSER OPERATOR CPT-G0439 Subsequent Annual Wellness Exam 08:51:04 DIFFUSER OPERATOR CPT-83140 Sacroiliac jt < 3V - XRAY USE ONLY 16:45:19 DIFFUSER OPERATOR 05/09 CPT-00766 LS spine comp w obliques - XRAY USE ONLY 14:52:26 DIFFUSER OPERATOR CPT-40630 Chest, 2 views 12:55:58 DIFFUSER OPERATOR CPT-G0439 Subsequent Annual Wellness Exam 10:34:52 DIFFUSER OPERATOR CPT-00021 BMP - LAB USE ONLY 17:19:11 DIFFUSER OPERATOR CPT-19205 PT/INR - LAB USE ONLY 17:19:10 DIFFUSER OPERATOR CPT-74888 Venipuncture Draw Fee 17:19:10 DIFFUSER OPERATOR CPT-04850 PT/INR - LAB USE ONLY 08:12:25 DIFFUSER OPERATOR CPT-60897 Venipuncture Draw Fee 08:12:24 DIFFUSER OPERATOR CPT-77027 Venipuncture Draw Fee 11:31:07 DIFFUSER OPERATOR CPT-30945 TPSA - LAB USE ONLY 11:31:07 DIFFUSER OPERATOR CPT-51419 PT/INR - LAB USE ONLY 11:31:07 DIFFUSER OPERATOR CPT-G0439 [facility] Annual Wellness Exam 09:59:29 DIFFUSER OPERATOR CPT-57458 Creatinine - LAB USE ONLY 14:37:55 DIFFUSER OPERATOR CPT-88186 PT/INR - LAB USE ONLY 14:37:55 DIFFUSER OPERATOR CPT-02861 Venipuncture Draw Fee 14:37:55 DIFFUSER OPERATOR CPT-80887 LS spine comp w obliques - XRAY USE ONLY 12:59:25 DIFFUSER OPERATOR CPT-84004 PT/INR - LAB USE ONLY 13:49:20 CDT CPT-58376 Venipuncture Draw Fee 13:49:19 CDT CPT-59465 PT/INR - LAB USE ONLY 15:48:49 CDT CPT-11012 Venipuncture Draw Fee 15:48:49 CDT CPT-91445 Venipuncture Draw Fee 11:31:59 CDT CPT-10468 PT/INR - LAB USE ONLY 11:31:59 CDT CPT-67854 Venipuncture Draw Fee 13:29:15 CDT CPT-59235 Thoracolumbar AP/Lat 15:19:19 DIFFUSER OPERATOR CPT-G0438 Initial Annual Wellness Exam 12:18:54 DIFFUSER OPERATOR CPT-37760 Knee 3V 09:57:38 CDT CPT-OV Office Visit 15:45:01 DIFFUSER OPERATOR CPT-36067 Abd compl w upright 17:10:25 CDT
--- OUTSIDE RECORDS SUMMARY | 2018-07-18 07:14 | XMS REPORT | Clinical Summary ---
Author Author Admin, [employer] Address Unknown Phone Unavailable Allergies, Adverse Reactions, [...] neoplasm of prostate V10.46 Active Alina Meyers PROCUREMENT OFFICER Personal history of malignant neoplasm of prostate Coronary artery disease 414.00 Active Alina Meyers APRN Coronary atherosclerosis of unspecified type of vessel, [place] or graft Back pain, thoracic region, left [...] THROMBOPHLEBITIS, LEG, 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 Inactive Sirisha Chen HEAVY FORGING MACHINE OPERATOR DEEP VENOUS THROMBOPHLEBITIS, LEG, 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 Inactive Sirisha Chen HEAVY FORGING MACHINE OPERATOR Seborrheic keratosis ICD-702.19 Inactive Sirisha Chen HEAVY FORGING MACHINE OPERATOR Bronchitis-Acute ICD-466.0 Inactive Piotr Daley DO Leg pain, right ICD-729.5 Inactive Sirisha Chen HEAVY FORGING MACHINE OPERATOR Right leg pain ICD-729.5 Inactive Sirisha Chen HEAVY FORGING MACHINE OPERATOR Bronchitis-Acute ICD-466.0 Inactive Sirisha Chen HEAVY FORGING MACHINE OPERATOR Knee pain, left ICD-719.46 Inactive Sirisha Chen HEAVY FORGING MACHINE OPERATOR Actinic keratoses ICD-702.0 Inactive Sirisha Chen HEAVY FORGING MACHINE OPERATOR Back pain, thoracic region, left ICD-724.1 Inactive Piotr Daley DO Thoracic back pain ICD-724.5 Inactive Sirisha Chen HEAVY FORGING MACHINE OPERATOR Back pain lumbar ICD-724.2 Inactive Sirisha Chen HEAVY FORGING MACHINE OPERATOR Insect bite ICD-919.4 Inactive Sirisha Chen HEAVY FORGING MACHINE OPERATOR Pruritus ICD-698.9 Inactive Sirisha Chen HEAVY FORGING MACHINE OPERATOR 04/09 Bronchitis-Acute ICD-466.0 Inactive Sirisha Chen HEAVY FORGING MACHINE OPERATOR Dyspnea ICD-786.09 Inactive Sirisha Chen HEAVY FORGING MACHINE OPERATOR 05/09 Pes anserinus bursitis, right ICD-726.61 Inactive Piotr Daley DO Medication List Medication Instructions Start Date Stop Date Generic Name [facility] Status Provider Patient Instruction TRIAMCINOLONE ACETONIDE 0.1 % EXTERNAL CREAM apply bid sparingly to rash 2017 TRIAMCINOLONE ACETONIDE 49899299546 No Longer Active Piotr Daley DO Active NYSTATIN 454717 UNIT/GM EXTERNAL CREAM Apply to rash 2-3 times a day and may repeat as needed NYSTATIN 05597039811 No Longer Active Piotr Daley DO Active WARFARIN SODIUM 4 MG ORAL TABLET 1 tablet by mouth daily WARFARIN SODIUM 78056603173 Active Sirisha Chen LPN Active MELOXICAM 15 MG ORAL TABLET 1 po q day for pain with food MELOXICAM 70786885098 Active Piotr Daley DO Active PREDNISONE 10 MG ORAL TABLET 1 tablet by mouth daily PREDNISONE 93562309635 No Longer Active Emelyn Norris Active TESSALON PERLES 100 MG ORAL CAPSULE 1-2 tablet by mouth 3 times daily 04/16 BENZONATATE 73098816354 No Longer Active Emelyn Norris Active PREDNISONE 20 MG ORAL TABLET two tabs by mouth today, then one tab by mouth days two and three PREDNISONE 28761819937 No Longer Active Piotr Daley DO Active CYCLOBENZAPRINE HCL 10 MG ORAL TABLET 1 tablet by mouth three times daily as needed for muscle spasm/pain CYCLOBENZAPRINE HCL 18550454846 Active Sirisha Chen LPN Active ZITHROMAX 250 MG ORAL TABLET Take two (2 ) tablets day one, then one (1) tablet a day for four (4) more days AZITHROMYCIN 86615116955 No Longer Active Piotr Daley DO Active PROAIR HFA 108 (90 BASE) MCG/ACT INHALATION AEROSOL SOLUTION 1-2 puffs four times a day as needed ALBUTEROL SULFATE 42073597562 No Longer Active Emelyn Norris Active DOXYCYCLINE HYCLATE 100 MG ORAL CAPSULE 1 cap by mouth BID x10 days DOXYCYCLINE HYCLATE 14218333515 No Longer Active Nella Harris APRN Active PREDNISONE 20 MG ORAL TABLET 2 tabs daily for 3 days, 1 tab daily for 3 days, 1/2 tab daily for 2 days PREDNISONE 25066183710 No Longer Active Matthew Rangel MD Active TRAMADOL HCL 50 MG ORAL TABLET 1 po tid with ES Tylenol TRAMADOL HCL 14635354314 No Longer Active Matthew Rangel MD Active GABAPENTIN 300 MG ORAL CAPSULE 1 po q hs for nerve pain GABAPENTIN 37703939809 No Longer Active Matthew Rangel MD Active PREDNISONE 20 MG ORAL TABLET 2 tablets today, then 1 tablet days 2 through 4 PREDNISONE 51332264908 No Longer Active Piotr Daley DO Active AZITHROMYCIN 250 MG ORAL TABLET 2 po qd x 1 day, then 1 po qd x 4 days 07/12 AZITHROMYCIN 00503806771 No Longer Active Piotr Daley DO Active IBUPROFEN 800 MG ORAL TABLET 1 tab every 8 hours as needed 07/12 IBUPROFEN 34865289897 No Longer Active Piotr Daley DO Active LOMOTIL 2.5-0.025 MG ORAL TABLET 1 to 2 four times a day as needed for diarrhea DIPHENOXYLATE-ATROPINE 26764559969 No Longer Active Piotr Daley DO Active WARFARIN SODIUM 4 MG ORAL TABLET 1 tab every evening WARFARIN SODIUM 39669749388 No Longer Active Piotr Daley DO Active PREDNISONE 20 MG ORAL TABLET 1 tablet twice daily for 2 days, then 1 tablet once daily for 2 days PREDNISONE 12892918742 No Longer Active Piotr Daley DO Active PROMETHAZINE HCL 25 MG ORAL TABLET 1 four times a day as needed for nausea/ vomiting PROMETHAZINE HCL 87305336750 No Longer Active Piotr Daley DO Active TUSSIONEX PENNKINETIC ER 10-8 MG/5ML ORAL SUSPENSION EXTENDED RELEASE 5ml po q12hr PRN Cough HYDROCOD POLST-CHLORPHEN POLST 02401578937 No Longer Active Piotr Daley DO Active AZITHROMYCIN 250 MG ORAL TABLET 2 po qd x 1 day, then 1 po qd x 4 days 10/13 AZITHROMYCIN 18230038602 No Longer Active Piotr Daley DO Active AZITHROMYCIN 250 MG ORAL TABLET 2 po qd x 1 day, then 1 po qd x 4 days 05/07 AZITHROMYCIN 15266941492 No Longer Active Piotr Daley DO Active LISINOPRIL-HYDROCHLOROTHIAZIDE 10-12.5 MG ORAL TABLET 1 tab by mouth daily LISINOPRIL-HYDROCHLOROTHIAZIDE 94326761570 Active Sirisha Gustavo HEAVY FORGING MACHINE OPERATOR Active LISINOPRIL 10 MG ORAL TABLET 1/2-1 tab po every other day LISINOPRIL 27726930828 No Longer Active Piotr Daley DO Active VENTOLIN HFA 108 (90 Base) MCG/ACT INHALATION AEROSOL SOLUTION 2 puffs four times a day PRN cough ALBUTEROL SULFATE 76091234024 No Longer Active Piotr Daley DO Active NYSTATIN-TRIAMCINOLONE 726316-7.1 UNIT/GM-% EXTERNAL CREAM Apply to area BID NYSTATIN-TRIAMCINOLONE 98304439692 No Longer Active Alena Chavira HEAVY FORGING MACHINE OPERATOR Active PHISOHEX 3 % LIQD Use Directed HEXACHLOROPHENE 79752327079 No Longer Active Sandra Nimitz Active AZITHROMYCIN 250 MG ORAL TABLET 2 po qd x 1 day, then 1 po qd x 4 days 10/21 AZITHROMYCIN 86844640528 No Longer Active Katrina Rinaldi MD PhD Active AZITHROMYCIN 250 MG ORAL TABLET 2 po qd x 1 day, then 1 po qd x 4 days 10/16 AZITHROMYCIN 52293025601 No Longer Active Piotr Daley DO Active AZITHROMYCIN 500 MG INTRAVENOUS SOLUTION RECONSTITUTED 1 po q day AZITHROMYCIN 91426342397 No Longer Active Piotr Daley DO Active NYSTATIN-TRIAMCINOLONE 327903-0.1 UNIT/GM-% EXTERNAL CREAM apply bid NYSTATIN-TRIAMCINOLONE 58444916001 No Longer Active Piotr Daley DO Active IBUPROFEN 800 MG ORAL TABLET 1 po q 8 hours prn pain sparinly IBUPROFEN 58727420394 No Longer Active Piotr Daley DO Active VITAMIN D3 5000 UNIT ORAL CAPSULE 1 po daily CHOLECALCIFEROL 64991651752 Active Piotr Daley DO Active IBUPROFEN 800 MG ORAL TABLET 1 po q 8 hours prn pain sparinly IBUPROFEN 800 MG ORAL TABLET 098363 IBUPROFEN Inactive NYSTATIN-TRIAMCINOLONE 051169-5.1 UNIT/GM-% EXTERNAL CREAM apply bid NYSTATIN-TRIAMCINOLONE 312495-2.1 UNIT/GM-% EXTERNAL CREAM 7286473 NYSTATIN-TRIAMCINOLONE Inactive AZITHROMYCIN 500 MG INTRAVENOUS SOLUTION RECONSTITUTED 1 po q day AZITHROMYCIN 500 MG INTRAVENOUS SOLUTION RECONSTITUTED 62815362948 AZITHROMYCIN Inactive VENTOLIN HFA 108 (90 Base) MCG/ACT INHALATION AEROSOL SOLUTION 2 puffs four times a day PRN cough VENTOLIN HFA 108 (90 Base) MCG/ ACT INHALATION AEROSOL SOLUTION ALBUTEROL SULFATE Inactive LISINOPRIL 10 MG ORAL TABLET 1/2-1 tab po every other day LISINOPRIL 10 MG ORAL TABLET 959739 LISINOPRIL Inactive TUSSIONEX PENNKINETIC ER 10-8 MG/5ML ORAL SUSPENSION EXTENDED RELEASE 5ml po q12hr PRN Cough TUSSIONEX PENNKINETIC ER 10-8 MG/5ML ORAL SUSPENSION EXTENDED RELEASE HYDROCOD POLST-CHLORPHEN POLST Inactive PROMETHAZINE HCL 25 MG ORAL TABLET 1 four times a day as needed for nausea/ vomiting PROMETHAZINE HCL 25 MG ORAL TABLET 085991 PROMETHAZINE HCL Inactive PREDNISONE 20 MG ORAL TABLET 1 tablet twice daily for 2 days, then 1 tablet once daily for 2 days PREDNISONE 20 MG ORAL TABLET 758839 PREDNISONE Inactive WARFARIN SODIUM 4 MG ORAL TABLET 1 tab every evening WARFARIN SODIUM 4 MG ORAL TABLET 974627 WARFARIN SODIUM Inactive LOMOTIL 2.5-0.025 MG ORAL TABLET 1 to 2 four times a day as needed for diarrhea LOMOTIL 2.5-0.025 MG ORAL TABLET 2533821 DIPHENOXYLATE-ATROPINE Inactive IBUPROFEN 800 MG ORAL TABLET 1 tab every 8 hours as needed 07/12 IBUPROFEN 800 MG ORAL TABLET 412229 IBUPROFEN Inactive PREDNISONE 20 MG ORAL TABLET 2 tablets today, then 1 tablet days 2 through 4 PREDNISONE 20 MG ORAL TABLET 329805 PREDNISONE Inactive GABAPENTIN 300 MG ORAL CAPSULE 1 po q hs for nerve pain GABAPENTIN 300 MG ORAL CAPSULE 666122 GABAPENTIN Inactive TRAMADOL HCL 50 MG ORAL TABLET 1 po tid with ES Tylenol TRAMADOL HCL 50 MG ORAL TABLET 637072 TRAMADOL HCL Inactive PROAIR HFA 108 (90 BASE) MCG/ACT INHALATION AEROSOL SOLUTION 1-2 puffs four times a day as needed PROAIR HFA 108 (90 BASE) MCG/ACT INHALATION AEROSOL SOLUTION ALBUTEROL SULFATE Inactive PREDNISONE 20 MG ORAL TABLET two tabs by mouth today, then one tab by mouth days two and three PREDNISONE 20 MG ORAL TABLET 692713 PREDNISONE Inactive TESSALON PERLES 100 MG ORAL CAPSULE 1-2 tablet by mouth 3 times daily 04/16 TESSALON PERLES 100 MG ORAL CAPSULE 282489 BENZONATATE Inactive PREDNISONE 10 MG ORAL TABLET 1 tablet by mouth daily PREDNISONE 10 MG ORAL TABLET 473399 PREDNISONE Inactive NYSTATIN 372584 UNIT/GM EXTERNAL CREAM Apply to rash 2-3 times a day and may repeat as needed NYSTATIN 924306 UNIT/GM EXTERNAL CREAM 349995 NYSTATIN Inactive TRIAMCINOLONE ACETONIDE 0.1 % EXTERNAL CREAM apply bid sparingly to rash 2017 TRIAMCINOLONE ACETONIDE 0.1 % EXTERNAL CREAM 1408704 TRIAMCINOLONE ACETONIDE Inactive AZITHROMYCIN 250 MG ORAL TABLET 2 po qd x 1 day, then 1 po qd x 4 days 10/16 AZITHROMYCIN 250 MG ORAL TABLET 856189 AZITHROMYCIN Inactive AZITHROMYCIN 250 MG ORAL TABLET 2 po qd x 1 day, then 1 po qd x 4 days 10/21 AZITHROMYCIN 250 MG ORAL TABLET 816683 AZITHROMYCIN Inactive NYSTATIN-TRIAMCINOLONE 449785-5.1 UNIT/GM-% EXTERNAL CREAM Apply to area BID NYSTATIN-TRIAMCINOLONE 453984-3.1 UNIT/GM-% EXTERNAL CREAM 3307581 NYSTATIN-TRIAMCINOLONE Inactive AZITHROMYCIN 250 MG ORAL TABLET 2 po qd x 1 day, then 1 po qd x 4 days 05/07 AZITHROMYCIN 250 MG ORAL TABLET 975919 AZITHROMYCIN Inactive AZITHROMYCIN 250 MG ORAL TABLET 2 po qd x 1 day, then 1 po qd x 4 days 10/13 AZITHROMYCIN 250 MG ORAL TABLET 778382 AZITHROMYCIN Inactive AZITHROMYCIN 250 MG ORAL TABLET 2 po qd x 1 day, then 1 po qd x 4 days 07/12 AZITHROMYCIN 250 MG ORAL TABLET 095611 AZITHROMYCIN Inactive PREDNISONE 20 MG ORAL TABLET 2 tabs daily for 3 days, 1 tab daily for 3 days, 1/2 tab daily for 2 days PREDNISONE 20 MG ORAL TABLET 991145 PREDNISONE Inactive DOXYCYCLINE HYCLATE 100 MG ORAL CAPSULE 1 cap by mouth BID x10 days DOXYCYCLINE HYCLATE 100 MG ORAL CAPSULE 6027439 DOXYCYCLINE HYCLATE Inactive ZITHROMAX 250 MG ORAL TABLET Take two (2 ) tablets day one, then one (1) tablet a day for four (4) more days ZITHROMAX 250 MG ORAL TABLET 258831 AZITHROMYCIN Inactive Advance Directives Directive Description Start [...] Ag - Chemistry sodium, serum 141 mmol/L 806-285 2851/12/17 carbon dioxide, venous blood 30.9 mmol/L 21.0-32.0 [...] 0-29 Encounters Code Encounter Date Provider Facility CPT-66168 [id number] Vst-Est Level III 14:38:24 PHOTO CHECKER AND ASSEMBLER Piotr Daley [facility] CPT-93210 [id number] Vst-Est Level IV 08:51:04 PHOTO CHECKER AND ASSEMBLER Piotr Daley [facility] CPT-95617 [id number] Vst-Est Level III 14:29:05 CDT Piotr W [facility] CPT-44259 Level 3 Est. Patient 15:59:25 PHOTO CHECKER AND ASSEMBLER Piotr Daley [facility] CPT-35635 Level 3 Est. Patient 12:33:59 PHOTO CHECKER AND ASSEMBLER Piotr Daley [facility] CPT-29122 Level 3 Est. Patient 15:56:17 PHOTO CHECKER AND ASSEMBLER Piotr Daley [facility] CPT-93246 Level 3 Est. Patient 10:34:54 PHOTO CHECKER AND ASSEMBLER Piotr Daley [facility] CPT-40358 Level 3 Est. Patient 17:10:19 CDT Nella Harris APRN [facility] CPT-03819 Level 3 Est. Patient 10:48:17 PHOTO CHECKER AND ASSEMBLER Matthew Rangel MD [facility] CPT-30695 Level 4 Est. Patient 17:15:07 PHOTO CHECKER AND ASSEMBLER Piotr Katie Edi [facility] CPT-71751 Level 3 Est. Patient 12:46:13 PHOTO CHECKER AND ASSEMBLER Piotr Daley [facility] CPT-98555 Level 3 Est. Patient 15:14:31 PHOTO CHECKER AND ASSEMBLER Piotr Daley [facility] CPT-76372 Level 3 Est. Patient 09:20:13 PHOTO CHECKER AND ASSEMBLER Piotr Katie Edi [facility] CPT-18605 Level 3 Est. Patient 09:49:40 CDT Piotr Daley [facility] CPT-32223 Level 3 Est. Patient 16:28:11 CDT Piotr Wilson Edi [facility] CPT-29844 Level 3 Est. Patient 12:41:58 PHOTO CHECKER AND ASSEMBLER Piotr Daley [facility] CPT-31798 Level 3 Est. Patient 09:21:24 CDT Piotr Wilson [facility] CPT-19725 Level 3 Est. Patient 09:21:11 CDT Piotr Wilson Edi [facility] CPT-42201 Level 3 Est. Patient 11:16:29 PHOTO CHECKER AND ASSEMBLER Piotr Wilson Edi [facility] CPT-72709 Level 3 Est. Patient 18:40:19 PHOTO CHECKER AND ASSEMBLER Piotr Daley [facility] CPT-03172 Level 3 Est. Patient 19:30:50 CDT Piotr Daley [facility] CPT-94501 Level 3 Est. Patient 22:06:44 CDT Katrina Rinaldi MD [facility] CPT-83626 Level 3 Est. Patient 14:20:00 CDT Piotr Daley [facility] CPT-40908 Level 3 Est. Patient 14:15:22 PHOTO CHECKER AND ASSEMBLER Piotr Daley [facility] CPT-28907 Level 3 Est. Patient 20:19:57 PHOTO CHECKER AND ASSEMBLER Piotr Daley [facility] CPT-46990 Level 3 Est. Patient 16:44:32 CDT Piotr Daley [facility] CPT-99844 Level 3 Est. Patient 08:48:46 PHOTO CHECKER AND ASSEMBLER Piotr Daley [facility] CPT-45395 Level 3 Est. Patient 21:01:21 CDT Piotr Daley [facility] Procedures Code Procedure Name Date Entry Date Standard Description CPT-Cryo Cryotherapy 08:51:04 PHOTO CHECKER AND ASSEMBLER CPT-G0439 Subsequent Annual Wellness Exam 08:51:04 PHOTO CHECKER AND ASSEMBLER CPT-24918 Sacroiliac jt < 3V - XRAY USE ONLY 16:45:19 PHOTO CHECKER AND ASSEMBLER 05/09 CPT-14140 LS spine comp w obliques - XRAY USE ONLY 14:52:26 PHOTO CHECKER AND ASSEMBLER CPT-84726 Chest, 2 views 12:55:58 PHOTO CHECKER AND ASSEMBLER CPT-G0439 Subsequent Annual Wellness Exam 10:34:52 PHOTO CHECKER AND ASSEMBLER CPT-91102 BMP - LAB USE ONLY 17:19:11 PHOTO CHECKER AND ASSEMBLER CPT-14322 PT/INR - LAB USE ONLY 17:19:10 PHOTO CHECKER AND ASSEMBLER CPT-95286 Venipuncture Draw Fee 17:19:10 PHOTO CHECKER AND ASSEMBLER CPT-82199 PT/INR - LAB USE ONLY 08:12:25 PHOTO CHECKER AND ASSEMBLER CPT-61441 Venipuncture Draw Fee 08:12:24 PHOTO CHECKER AND ASSEMBLER CPT-84852 Venipuncture Draw Fee 11:31:07 PHOTO CHECKER AND ASSEMBLER CPT-46438 TPSA - LAB USE ONLY 11:31:07 PHOTO CHECKER AND ASSEMBLER CPT-67275 PT/INR - LAB USE ONLY 11:31:07 PHOTO CHECKER AND ASSEMBLER CPT-G0439 [facility] Annual Wellness Exam 09:59:29 PHOTO CHECKER AND ASSEMBLER CPT-98428 Creatinine - LAB USE ONLY 14:37:55 PHOTO CHECKER AND ASSEMBLER CPT-14032 PT/INR - LAB USE ONLY 14:37:55 PHOTO CHECKER AND ASSEMBLER CPT-49035 Venipuncture Draw Fee 14:37:55 PHOTO CHECKER AND ASSEMBLER CPT-19314 LS spine comp w obliques - XRAY USE ONLY 12:59:25 PHOTO CHECKER AND ASSEMBLER CPT-32481 PT/INR - LAB USE ONLY 13:49:20 CDT CPT-33546 Venipuncture Draw Fee 13:49:19 CDT CPT-65767 PT/INR - LAB USE ONLY 15:48:49 CDT CPT-13179 Venipuncture Draw Fee 15:48:49 CDT CPT-76306 Venipuncture Draw Fee 11:31:59 CDT CPT-76837 PT/INR - LAB USE ONLY 11:31:59 CDT CPT-94000 Venipuncture Draw Fee 13:29:15 CDT CPT-27258 Thoracolumbar AP/Lat 15:19:19 PHOTO CHECKER AND ASSEMBLER CPT-G0438 Initial Annual Wellness Exam 12:18:54 PHOTO CHECKER AND ASSEMBLER CPT-24668 Knee 3V 09:57:38 CDT CPT-OV Office Visit 15:45:01 PHOTO CHECKER AND ASSEMBLER CPT-31182 Abd compl w upright 17:10:25 CDT
--- OUTSIDE RECORDS SUMMARY | 2018-07-18 07:14 | XMS REPORT | Clinical Summary ---
Author Author Admin, Bita Organization [employer] Address Unknown Phone Unavailable Allergies, Adverse Reactions, [...] Coronary atherosclerosis of unspecified type of vessel, [place] or graft Back pain, thoracic region, left [...] care facility Bronchitis-Acute 466.0 Resolved Emelyn Goode Michaeleliceo Acute bronchitis Dyspnea 786.09 Resolved Emelyn Norris [...] THROMBOPHLEBITIS, LEG, 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 Inactive Sirisha Chen HEAD CHAR FILTER TANK TENDER DEEP VENOUS THROMBOPHLEBITIS, LEG, 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 Inactive Sirisha Chen HEAD CHAR FILTER TANK TENDER Seborrheic keratosis ICD-702.19 Inactive Sirisha Chen HEAD CHAR FILTER TANK TENDER Bronchitis-Acute ICD-466.0 Inactive Piotr Daley DO Leg pain, right ICD-729.5 Inactive Sirisha Chen HEAD CHAR FILTER TANK TENDER Right leg pain ICD-729.5 Inactive Sirisha Chen HEAD CHAR FILTER TANK TENDER Bronchitis-Acute ICD-466.0 Inactive Sirisha Chen HEAD CHAR FILTER TANK TENDER Knee pain, left ICD-719.46 Inactive Sirisha Chen HEAD CHAR FILTER TANK TENDER Actinic keratoses ICD-702.0 Inactive Sirisha Chen HEAD CHAR FILTER TANK TENDER Back pain, thoracic region, left ICD-724.1 Inactive Piotr Daley DO Thoracic back pain ICD-724.5 Inactive Sirisha Chen HEAD CHAR FILTER TANK TENDER Back pain lumbar ICD-724.2 Inactive Sirisha Chen HEAD CHAR FILTER TANK TENDER Insect bite ICD-919.4 Inactive Sirisha Chen HEAD CHAR FILTER TANK TENDER Pruritus ICD-698.9 Inactive Sirisha Chen HEAD CHAR FILTER TANK TENDER 04/09 Bronchitis-Acute ICD-466.0 Inactive Sirisha Chen HEAD CHAR FILTER TANK TENDER Dyspnea ICD-786.09 Inactive Sirisha Chen HEAD CHAR FILTER TANK TENDER 05/09 Pes anserinus bursitis, right ICD-726.61 Inactive Piotr Daley DO Medication List Medication Instructions Start Date Stop Date Generic Name [facility] Status Provider Patient Instruction TRIAMCINOLONE ACETONIDE 0.1 % EXTERNAL CREAM apply bid sparingly to rash 2017 TRIAMCINOLONE ACETONIDE 80698281631 No Longer Active Piotr Daley DO Active NYSTATIN 636610 UNIT/GM EXTERNAL CREAM Apply to rash 2-3 times a day and may repeat as needed NYSTATIN 34943104884 No Longer Active Piotr Daley DO Active WARFARIN SODIUM 4 MG ORAL TABLET 1 tablet by mouth daily WARFARIN SODIUM 87008444304 Active Sirisha Chen LPN Active MELOXICAM 15 MG ORAL TABLET 1 po q day for pain with food MELOXICAM 43566574670 Active Piotr Daley DO Active PREDNISONE 10 MG ORAL TABLET 1 tablet by mouth daily PREDNISONE 82013371666 No Longer Active Emelyn Norris Active TESSALON PERLES 100 MG ORAL CAPSULE 1-2 tablet by mouth 3 times daily 04/16 BENZONATATE 02728022894 No Longer Active Emelyn Norris Active PREDNISONE 20 MG ORAL TABLET two tabs by mouth today, then one tab by mouth days two and three PREDNISONE 59505801519 No Longer Active Piotr Daley DO Active CYCLOBENZAPRINE HCL 10 MG ORAL TABLET 1 tablet by mouth three times daily as needed for muscle spasm/pain CYCLOBENZAPRINE HCL 78511098573 Active Sirisha Chen LPN Active ZITHROMAX 250 MG ORAL TABLET Take two (2 ) tablets day one, then one (1) tablet a day for four (4) more days AZITHROMYCIN 30659102012 No Longer Active Piotr Daley DO Active PROAIR HFA 108 (90 BASE) MCG/ACT INHALATION AEROSOL SOLUTION 1-2 puffs four times a day as needed ALBUTEROL SULFATE 62283834312 No Longer Active Emelyn Norris Active DOXYCYCLINE HYCLATE 100 MG ORAL CAPSULE 1 cap by mouth BID x10 days DOXYCYCLINE HYCLATE 87301163405 No Longer Active Nella Harris APRN Active PREDNISONE 20 MG ORAL TABLET 2 tabs daily for 3 days, 1 tab daily for 3 days, 1/2 tab daily for 2 days PREDNISONE 77162910326 No Longer Active Matthew Rangel MD Active TRAMADOL HCL 50 MG ORAL TABLET 1 po tid with ES Tylenol TRAMADOL HCL 99943773510 No Longer Active Matthew Rangel MD Active GABAPENTIN 300 MG ORAL CAPSULE 1 po q hs for nerve pain GABAPENTIN 38735417892 No Longer Active Matthew Rangel MD Active PREDNISONE 20 MG ORAL TABLET 2 tablets today, then 1 tablet days 2 through 4 PREDNISONE 16390222542 No Longer Active Piotr Daley DO Active AZITHROMYCIN 250 MG ORAL TABLET 2 po qd x 1 day, then 1 po qd x 4 days 07/12 AZITHROMYCIN 91034725741 No Longer Active Piotr Daley DO Active IBUPROFEN 800 MG ORAL TABLET 1 tab every 8 hours as needed 07/12 IBUPROFEN 69060217612 No Longer Active Piotr Daley DO Active LOMOTIL 2.5-0.025 MG ORAL TABLET 1 to 2 four times a day as needed for diarrhea DIPHENOXYLATE-ATROPINE 34965646253 No Longer Active Piort Daley DO Active WARFARIN SODIUM 4 MG ORAL TABLET 1 tab every evening WARFARIN SODIUM 91430773912 No Longer Active Piotr Daley DO Active PREDNISONE 20 MG ORAL TABLET 1 tablet twice daily for 2 days, then 1 tablet once daily for 2 days PREDNISONE 20402942883 No Longer Active Piotr Daley DO Active PROMETHAZINE HCL 25 MG ORAL TABLET 1 four times a day as needed for nausea/ vomiting PROMETHAZINE HCL 84062938898 No Longer Active Piotr Daley DO Active TUSSIONEX PENNKINETIC ER 10-8 MG/5ML ORAL SUSPENSION EXTENDED RELEASE 5ml po q12hr PRN Cough HYDROCOD POLST-CHLORPHEN POLST 80533459804 No Longer Active Piotr Daley DO Active AZITHROMYCIN 250 MG ORAL TABLET 2 po qd x 1 day, then 1 po qd x 4 days 10/13 AZITHROMYCIN 93796598693 No Longer Active Piotr Daley DO Active AZITHROMYCIN 250 MG ORAL TABLET 2 po qd x 1 day, then 1 po qd x 4 days 05/07 AZITHROMYCIN 96063722536 No Longer Active Piotr Daley DO Active LISINOPRIL-HYDROCHLOROTHIAZIDE 10-12.5 MG ORAL TABLET 1 tab by mouth daily LISINOPRIL-HYDROCHLOROTHIAZIDE 72868005357 Active Sirisha Gustavo HEAD CHAR FILTER TANK TENDER Active LISINOPRIL 10 MG ORAL TABLET 1/2-1 tab po every other day LISINOPRIL 49510916139 No Longer Active Piotr Daley DO Active VENTOLIN HFA 108 (90 Base) MCG/ACT INHALATION AEROSOL SOLUTION 2 puffs four times a day PRN cough ALBUTEROL SULFATE 24183102366 No Longer Active Piotr Daley DO Active NYSTATIN-TRIAMCINOLONE 565063-5.1 UNIT/GM-% EXTERNAL CREAM Apply to area BID NYSTATIN-TRIAMCINOLONE 26373362827 No Longer Active Alena Chavira HEAD CHAR FILTER TANK TENDER Active PHISOHEX 3 % LIQD Use Directed HEXACHLOROPHENE 79902414631 No Longer Active Sandra Lueders Active AZITHROMYCIN 250 MG ORAL TABLET 2 po qd x 1 day, then 1 po qd x 4 days 10/21 AZITHROMYCIN 66966776856 No Longer Active Katrina Rinaldi MD PhD Active AZITHROMYCIN 250 MG ORAL TABLET 2 po qd x 1 day, then 1 po qd x 4 days 10/16 AZITHROMYCIN 76103048144 No Longer Active Piotr Daley DO Active AZITHROMYCIN 500 MG INTRAVENOUS SOLUTION RECONSTITUTED 1 po q day AZITHROMYCIN 20367017153 No Longer Active Piotr Daley DO Active NYSTATIN-TRIAMCINOLONE 050874-4.1 UNIT/GM-% EXTERNAL CREAM apply bid NYSTATIN-TRIAMCINOLONE 59623554915 No Longer Active Piotr Daley DO Active IBUPROFEN 800 MG ORAL TABLET 1 po q 8 hours prn pain sparinly IBUPROFEN 45859034309 No Longer Active Piotr Daley DO Active VITAMIN D3 5000 UNIT ORAL CAPSULE 1 po daily CHOLECALCIFEROL 39734347392 Active Piotr Daley DO Active IBUPROFEN 800 MG ORAL TABLET 1 po q 8 hours prn pain sparinly IBUPROFEN 800 MG ORAL TABLET 614507 IBUPROFEN Inactive NYSTATIN-TRIAMCINOLONE 352089-7.1 UNIT/GM-% EXTERNAL CREAM apply bid NYSTATIN-TRIAMCINOLONE 029505-6.1 UNIT/GM-% EXTERNAL CREAM 2317136 NYSTATIN-TRIAMCINOLONE Inactive AZITHROMYCIN 500 MG INTRAVENOUS SOLUTION RECONSTITUTED 1 po q day AZITHROMYCIN 500 MG INTRAVENOUS SOLUTION RECONSTITUTED 63613246933 AZITHROMYCIN Inactive VENTOLIN HFA 108 (90 Base) MCG/ACT INHALATION AEROSOL SOLUTION 2 puffs four times a day PRN cough VENTOLIN HFA 108 (90 Base) MCG/ ACT INHALATION AEROSOL SOLUTION ALBUTEROL SULFATE Inactive LISINOPRIL 10 MG ORAL TABLET 1/2-1 tab po every other day LISINOPRIL 10 MG ORAL TABLET 112002 LISINOPRIL Inactive TUSSIONEX PENNKINETIC ER 10-8 MG/5ML ORAL SUSPENSION EXTENDED RELEASE 5ml po q12hr PRN Cough TUSSIONEX PENNKINETIC ER 10-8 MG/5ML ORAL SUSPENSION EXTENDED RELEASE HYDROCOD POLST-CHLORPHEN POLST Inactive PROMETHAZINE HCL 25 MG ORAL TABLET 1 four times a day as needed for nausea/ vomiting PROMETHAZINE HCL 25 MG ORAL TABLET 053912 PROMETHAZINE HCL Inactive PREDNISONE 20 MG ORAL TABLET 1 tablet twice daily for 2 days, then 1 tablet once daily for 2 days PREDNISONE 20 MG ORAL TABLET 534738 PREDNISONE Inactive WARFARIN SODIUM 4 MG ORAL TABLET 1 tab every evening WARFARIN SODIUM 4 MG ORAL TABLET 121932 WARFARIN SODIUM Inactive LOMOTIL 2.5-0.025 MG ORAL TABLET 1 to 2 four times a day as needed for diarrhea LOMOTIL 2.5-0.025 MG ORAL TABLET 6491872 DIPHENOXYLATE-ATROPINE Inactive IBUPROFEN 800 MG ORAL TABLET 1 tab every 8 hours as needed 07/12 IBUPROFEN 800 MG ORAL TABLET 441497 IBUPROFEN Inactive PREDNISONE 20 MG ORAL TABLET 2 tablets today, then 1 tablet days 2 through 4 PREDNISONE 20 MG ORAL TABLET 770133 PREDNISONE Inactive GABAPENTIN 300 MG ORAL CAPSULE 1 po q hs for nerve pain GABAPENTIN 300 MG ORAL CAPSULE 894187 GABAPENTIN Inactive TRAMADOL HCL 50 MG ORAL TABLET 1 po tid with ES Tylenol TRAMADOL HCL 50 MG ORAL TABLET 062588 TRAMADOL HCL Inactive PROAIR HFA 108 (90 BASE) MCG/ACT INHALATION AEROSOL SOLUTION 1-2 puffs four times a day as needed PROAIR HFA 108 (90 BASE) MCG/ACT INHALATION AEROSOL SOLUTION ALBUTEROL SULFATE Inactive PREDNISONE 20 MG ORAL TABLET two tabs by mouth today, then one tab by mouth days two and three PREDNISONE 20 MG ORAL TABLET 072582 PREDNISONE Inactive TESSALON PERLES 100 MG ORAL CAPSULE 1-2 tablet by mouth 3 times daily 04/16 TESSALON PERLES 100 MG ORAL CAPSULE 626819 BENZONATATE Inactive PREDNISONE 10 MG ORAL TABLET 1 tablet by mouth daily PREDNISONE 10 MG ORAL TABLET 582594 PREDNISONE Inactive NYSTATIN 736229 UNIT/GM EXTERNAL CREAM Apply to rash 2-3 times a day and may repeat as needed NYSTATIN 823788 UNIT/GM EXTERNAL CREAM 606502 NYSTATIN Inactive TRIAMCINOLONE ACETONIDE 0.1 % EXTERNAL CREAM apply bid sparingly to rash 2017 TRIAMCINOLONE ACETONIDE 0.1 % EXTERNAL CREAM 2007719 TRIAMCINOLONE ACETONIDE Inactive AZITHROMYCIN 250 MG ORAL TABLET 2 po qd x 1 day, then 1 po qd x 4 days 10/16 AZITHROMYCIN 250 MG ORAL TABLET 058654 AZITHROMYCIN Inactive AZITHROMYCIN 250 MG ORAL TABLET 2 po qd x 1 day, then 1 po qd x 4 days 10/21 AZITHROMYCIN 250 MG ORAL TABLET 454717 AZITHROMYCIN Inactive NYSTATIN-TRIAMCINOLONE 477048-1.1 UNIT/GM-% EXTERNAL CREAM Apply to area BID NYSTATIN-TRIAMCINOLONE 637447-5.1 UNIT/GM-% EXTERNAL CREAM 1482921 NYSTATIN-TRIAMCINOLONE Inactive AZITHROMYCIN 250 MG ORAL TABLET 2 po qd x 1 day, then 1 po qd x 4 days 05/07 AZITHROMYCIN 250 MG ORAL TABLET 949167 AZITHROMYCIN Inactive AZITHROMYCIN 250 MG ORAL TABLET 2 po qd x 1 day, then 1 po qd x 4 days 10/13 AZITHROMYCIN 250 MG ORAL TABLET 542585 AZITHROMYCIN Inactive AZITHROMYCIN 250 MG ORAL TABLET 2 po qd x 1 day, then 1 po qd x 4 days 07/12 AZITHROMYCIN 250 MG ORAL TABLET 035286 AZITHROMYCIN Inactive PREDNISONE 20 MG ORAL TABLET 2 tabs daily for 3 days, 1 tab daily for 3 days, 1/2 tab daily for 2 days PREDNISONE 20 MG ORAL TABLET 166205 PREDNISONE Inactive DOXYCYCLINE HYCLATE 100 MG ORAL CAPSULE 1 cap by mouth BID x10 days DOXYCYCLINE HYCLATE 100 MG ORAL CAPSULE 2717463 DOXYCYCLINE HYCLATE Inactive ZITHROMAX 250 MG ORAL TABLET Take two (2 ) tablets day one, then one (1) tablet a day for four (4) more days ZITHROMAX 250 MG ORAL TABLET 000236 AZITHROMYCIN Inactive Advance Directives Directive Description Start [...] Ag - Chemistry sodium, serum 141 mmol/L 922-461 1961/12/17 carbon dioxide, venous blood 30.9 mmol/L 21.0-32.0 [...] 0-29 Encounters Code Encounter Date Provider Facility CPT-94751 [id number]-Lfs Vst-Est Level III 14:38:24 PERSONALIZED LIVING MANAGER NURSE Piotr Daley [facility] CPT-80905 44600-Qez Vst-Est Level IV 08:51:04 PERSONALIZED LIVING MANAGER NURSE Piotr Daley [facility] CPT-70580 29086-Txl Vst-Est Level III 14:29:05 CDT Piotr W [facility] CPT-58615 Level 3 Est. Patient 15:59:25 PERSONALIZED LIVING MANAGER NURSE Piotr Daley [facility] CPT-99922 Level 3 Est. Patient 12:33:59 PERSONALIZED LIVING MANAGER NURSE Piotr Daley [facility] CPT-77847 Level 3 Est. Patient 15:56:17 PERSONALIZED LIVING MANAGER NURSE Piotr Daley [facility] CPT-68092 Level 3 Est. Patient 10:34:54 PERSONALIZED LIVING MANAGER NURSE Piotr Daley [facility] CPT-02664 Level 3 Est. Patient 17:10:19 CDT Nella Harris APRN [facility] CPT-28077 Level 3 Est. Patient 10:48:17 PERSONALIZED LIVING MANAGER NURSE Matthew Rangel MD [facility] CPT-88740 Level 4 Est. Patient 17:15:07 PERSONALIZED LIVING MANAGER NURSE Piotr Daley [facility] CPT-08132 Level 3 Est. Patient 12:46:13 PERSONALIZED LIVING MANAGER NURSE Piotr Daley [facility] CPT-46730 Level 3 Est. Patient 15:14:31 PERSONALIZED LIVING MANAGER NURSE Piotr Daley [facility] CPT-69913 Level 3 Est. Patient 09:20:13 PERSONALIZED LIVING MANAGER NURSE Piotr Katie Edi [facility] CPT-59982 Level 3 Est. Patient 09:49:[address] [facility] CPT-44839 Level 3 Est. Patient 16:28:11 CDT Piotr Daley [facility] CPT-27353 Level 3 Est. Patient 12:41:58 PERSONALIZED LIVING MANAGER NURSE Piotr Daley [facility] CPT-08097 Level 3 Est. Patient 09:21:24 CDT Piotr Wilson [facility] CPT-61443 Level 3 Est. Patient 09:21:11 CDT Piot[address] Wilson Edi [facility] CPT-39710 Level 3 Est. Patient 11:16:29 PERSONALIZED LIVING MANAGER NURSE Piotr Wilson Edi [facility] CPT-69982 Level 3 Est. Patient 18:40:19 PERSONALIZED LIVING MANAGER NURSE Piotr Daley [facility] CPT-13893 Level 3 Est. Patient 19:30:50 CDT Piotr Daley [facility] CPT-82416 Level 3 Est. Patient 22:06:44 CDT Katrina Rinaldi MD [facility] CPT-47580 Level 3 Est. Patient 14:20:00 CDT Piotr Daley [facility] CPT-03933 Level 3 Est. Patient 14:15:22 PERSONALIZED LIVING MANAGER NURSE Piotr Daley [facility] CPT-26662 Level 3 Est. Patient 20:19:57 PERSONALIZED LIVING MANAGER NURSE Piotr Daley [facility] CPT-19380 Level 3 Est. Patient 16:44:32 CDT Piotr Daley [facility] CPT-27747 Level 3 Est. Patient 08:48:46 PERSONALIZED LIVING MANAGER NURSE Piotr Daley [facility] CPT-52850 Level 3 Est. Patient 21:01:21 CDT Piotr Daley [facility] Procedures Code Procedure Name Date Entry Date Standard Description CPT-Cryo Cryotherapy 08:51:04 PERSONALIZED LIVING MANAGER NURSE CPT-G0439 Subsequent Annual Wellness Exam 08:51:04 PERSONALIZED LIVING MANAGER NURSE CPT-58966 Sacroiliac jt < 3V - XRAY USE ONLY 16:45:19 PERSONALIZED LIVING MANAGER NURSE 05/09 CPT-11779 LS spine comp w obliques - XRAY USE ONLY 14:52:26 PERSONALIZED LIVING MANAGER NURSE CPT-82469 Chest, 2 views 12:55:58 PERSONALIZED LIVING MANAGER NURSE CPT-G0439 Subsequent Annual Wellness Exam 10:34:52 PERSONALIZED LIVING MANAGER NURSE CPT-54650 BMP - LAB USE ONLY 17:19:11 PERSONALIZED LIVING MANAGER NURSE CPT-24471 PT/INR - LAB USE ONLY 17:19:10 PERSONALIZED LIVING MANAGER NURSE CPT-78109 Venipuncture Draw Fee 17:19:10 PERSONALIZED LIVING MANAGER NURSE CPT-63139 PT/INR - LAB USE ONLY 08:12:25 PERSONALIZED LIVING MANAGER NURSE CPT-40555 Venipuncture Draw Fee 08:12:24 PERSONALIZED LIVING MANAGER NURSE CPT-61475 Venipuncture Draw Fee 11:31:07 PERSONALIZED LIVING MANAGER NURSE CPT-57187 TPSA - LAB USE ONLY 11:31:07 PERSONALIZED LIVING MANAGER NURSE CPT-84560 PT/INR - LAB USE ONLY 11:31:07 PERSONALIZED LIVING MANAGER NURSE CPT-G0439 [facility] Annual Wellness Exam 09:59:29 PERSONALIZED LIVING MANAGER NURSE CPT-12714 Creatinine - LAB USE ONLY 14:37:55 PERSONALIZED LIVING MANAGER NURSE CPT-58469 PT/INR - LAB USE ONLY 14:37:55 PERSONALIZED LIVING MANAGER NURSE CPT-58612 Venipuncture Draw Fee 14:37:55 PERSONALIZED LIVING MANAGER NURSE CPT-45193 LS spine comp w obliques - XRAY USE ONLY 12:59:25 PERSONALIZED LIVING MANAGER NURSE CPT-51940 PT/INR - LAB USE ONLY 13:49:20 CDT CPT-46979 Venipuncture Draw Fee 13:49:19 CDT CPT-58537 PT/INR - LAB USE ONLY 15:48:49 CDT CPT-96957 Venipuncture Draw Fee 15:48:49 CDT CPT-18481 Venipuncture Draw Fee 11:31:59 CDT CPT-26046 PT/INR - LAB USE ONLY 11:31:59 CDT CPT-30361 Venipuncture Draw Fee 13:29:15 CDT CPT-21622 Thoracolumbar AP/Lat 15:19:19 PERSONALIZED LIVING MANAGER NURSE CPT-G0438 Initial Annual Wellness Exam 12:18:54 PERSONALIZED LIVING MANAGER NURSE CPT-31429 Knee 3V 09:57:38 CDT CPT-OV Office Visit 15:45:01 PERSONALIZED LIVING MANAGER NURSE CPT-11325 Abd compl w upright 17:10:25 CDT
--- OUTSIDE RECORDS SUMMARY | 2018-07-18 07:15 | XMS REPORT | Clinical Summary ---
Author Author Admin, [employer] Organization [employer] Address Unknown Phone Unavailable Allergies, Adverse Reactions, [...] neoplasm of prostate V10.46 Active Alina Meyers SKIN TANNER Personal history of malignant neoplasm of prostate Coronary artery disease 414.00 Active Alina Meyers APRN Coronary atherosclerosis of unspecified type of vessel, shinnecock or graft Back pain, thoracic region, left [...] THROMBOPHLEBITIS, LEG, 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 Inactive Sirisha Chen [employer] MANAGER DEEP VENOUS THROMBOPHLEBITIS, LEG, 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 Inactive Sirisha Chen [employer] MANAGER Seborrheic keratosis ICD-702.19 Inactive Sirisha Chen [employer] SERVICES MANAGER Bronchitis-Acute ICD-466.0 Inactive Piotr Daley DO Leg pain, right ICD-729.5 Inactive Sirisha Chen [employer] SERVICES MANAGER Right leg pain ICD-729.5 Inactive Sirisha Chen [employer] MANAGER Bronchitis-Acute ICD-466.0 Inactive Sirisha Chen [employer] MANAGER Knee pain, left ICD-719.46 Inactive Sirisha Chen [employer] SERVICES MANAGER Actinic keratoses ICD-702.0 Inactive Sirisha Chen [employer] SERVICES MANAGER Back pain, thoracic region, left ICD-724.1 Inactive Piotr Daley DO Thoracic back pain ICD-724.5 Inactive Sirisha Chen [employer] MANAGER Back pain lumbar ICD-724.2 Inactive Sirisha Chen [employer] SERVICES MANAGER Insect bite ICD-919.4 Inactive Sirisha Chen [employer] SERVICES MANAGER Pruritus ICD-698.9 Inactive Sirisha Chen [employer] SERVICES MANAGER 04/09 Bronchitis-Acute ICD-466.0 Inactive Sirisha Chen [employer] MANAGER Dyspnea ICD-786.09 Inactive Sirisha Chen [employer] MANAGER 05/09 Pes anserinus bursitis, right ICD-726.61 Inactive Piotr Daley DO Medication List Medication Instructions Start Date Stop Date Generic Name [facility] Status Provider Patient Instruction TRIAMCINOLONE ACETONIDE 0.1 % EXTERNAL CREAM apply bid sparingly to rash 2017 TRIAMCINOLONE ACETONIDE 07556995201 No Longer Active Piotr Daley DO Active NYSTATIN 678930 UNIT/GM EXTERNAL CREAM Apply to rash 2-3 times a day and may repeat as needed NYSTATIN 60261885212 No Longer Active Piotr Daley DO Active WARFARIN SODIUM 4 MG ORAL TABLET 1 tablet by mouth daily WARFARIN SODIUM 41434322539 Active Sirisha Chen LPN Active MELOXICAM 15 MG ORAL TABLET 1 po q day for pain with food MELOXICAM 76062235617 Active Piotr Daley DO Active PREDNISONE 10 MG ORAL TABLET 1 tablet by mouth daily PREDNISONE 88313070734 No Longer Active Emelyn Norris Active TESSALON PERLES 100 MG ORAL CAPSULE 1-2 tablet by mouth 3 times daily 04/16 BENZONATATE 59695066184 No Longer Active Emelyn Norris Active PREDNISONE 20 MG ORAL TABLET two tabs by mouth today, then one tab by mouth days two and three PREDNISONE 96595749631 No Longer Active Piotr Daley DO Active CYCLOBENZAPRINE HCL 10 MG ORAL TABLET 1 tablet by mouth three times daily as needed for muscle spasm/pain CYCLOBENZAPRINE HCL 87340506170 Active Sirisha Chen LPN Active ZITHROMAX 250 MG ORAL TABLET Take two (2 ) tablets day one, then one (1) tablet a day for four (4) more days AZITHROMYCIN 23906181816 No Longer Active Piotr Daley DO Active PROAIR HFA 108 (90 BASE) MCG/ACT INHALATION AEROSOL SOLUTION 1-2 puffs four times a day as needed ALBUTEROL SULFATE 52818979567 No Longer Active Emelyn Norris Active DOXYCYCLINE HYCLATE 100 MG ORAL CAPSULE 1 cap by mouth BID x10 days DOXYCYCLINE HYCLATE 81735390336 No Longer Active Nella Harris APRN Active PREDNISONE 20 MG ORAL TABLET 2 tabs daily for 3 days, 1 tab daily for 3 days, 1/2 tab daily for 2 days PREDNISONE 25504380020 No Longer Active Matthew Rangel MD Active TRAMADOL HCL 50 MG ORAL TABLET 1 po tid with ES Tylenol TRAMADOL HCL 45002536219 No Longer Active Matthew Rangel MD Active GABAPENTIN 300 MG ORAL CAPSULE 1 po q hs for nerve pain GABAPENTIN 64494078415 No Longer Active Matthew Rangel MD Active PREDNISONE 20 MG ORAL TABLET 2 tablets today, then 1 tablet days 2 through 4 PREDNISONE 98034110555 No Longer Active Piotr Daley DO Active AZITHROMYCIN 250 MG ORAL TABLET 2 po qd x 1 day, then 1 po qd x 4 days 07/12 AZITHROMYCIN 22077324469 No Longer Active Piotr Daley DO Active IBUPROFEN 800 MG ORAL TABLET 1 tab every 8 hours as needed 07/12 IBUPROFEN 76589943593 No Longer Active Piotr Daley DO Active LOMOTIL 2.5-0.025 MG ORAL TABLET 1 to 2 four times a day as needed for diarrhea DIPHENOXYLATE-ATROPINE 78150624944 No Longer Active Piotr Daley DO Active WARFARIN SODIUM 4 MG ORAL TABLET 1 tab every evening WARFARIN SODIUM 42187061017 No Longer Active Piotr Daley DO Active PREDNISONE 20 MG ORAL TABLET 1 tablet twice daily for 2 days, then 1 tablet once daily for 2 days PREDNISONE 11443924797 No Longer Active Piotr Daley DO Active PROMETHAZINE HCL 25 MG ORAL TABLET 1 four times a day as needed for nausea/ vomiting PROMETHAZINE HCL 34825097605 No Longer Active Piotr Daley DO Active TUSSIONEX PENNKINETIC ER 10-8 MG/5ML ORAL SUSPENSION EXTENDED RELEASE 5ml po q12hr PRN Cough HYDROCOD POLST-CHLORPHEN POLST 81904470072 No Longer Active Piotr Daley DO Active AZITHROMYCIN 250 MG ORAL TABLET 2 po qd x 1 day, then 1 po qd x 4 days 10/13 AZITHROMYCIN 49283100827 No Longer Active Piotr Daley DO Active AZITHROMYCIN 250 MG ORAL TABLET 2 po qd x 1 day, then 1 po qd x 4 days 05/07 AZITHROMYCIN 99566315043 No Longer Active Piotr Daley DO Active LISINOPRIL-HYDROCHLOROTHIAZIDE 10-12.5 MG ORAL TABLET 1 tab by mouth daily LISINOPRIL-HYDROCHLOROTHIAZIDE 94098176775 Active Sirisha Gustavo [employer] MANAGER Active LISINOPRIL 10 MG ORAL TABLET 1/2-1 tab po every other day LISINOPRIL 92204744266 No Longer Active Piotr Daley DO Active VENTOLIN HFA 108 (90 Base) MCG/ACT INHALATION AEROSOL SOLUTION 2 puffs four times a day PRN cough ALBUTEROL SULFATE 54901189088 No Longer Active Piotr Daley DO Active NYSTATIN-TRIAMCINOLONE 473762-2.1 UNIT/GM-% EXTERNAL CREAM Apply to area BID NYSTATIN-TRIAMCINOLONE 29542423160 No Longer Active Alena Chavira [employer] MANAGER Active PHISOHEX 3 % LIQD Use Directed HEXACHLOROPHENE 59085703318 No Longer Active Sandra [place] Active AZITHROMYCIN 250 MG ORAL TABLET 2 po qd x 1 day, then 1 po qd x 4 days 10/21 AZITHROMYCIN 73691084416 No Longer Active Katrina Rinaldi MD PhD Active AZITHROMYCIN 250 MG ORAL TABLET 2 po qd x 1 day, then 1 po qd x 4 days 10/16 AZITHROMYCIN 16910677198 No Longer Active Piotr Daley DO Active AZITHROMYCIN 500 MG INTRAVENOUS SOLUTION RECONSTITUTED 1 po q day AZITHROMYCIN 26047707711 No Longer Active Piotr Daley DO Active NYSTATIN-TRIAMCINOLONE 242020-8.1 UNIT/GM-% EXTERNAL CREAM apply bid NYSTATIN-TRIAMCINOLONE 25005977304 No Longer Active Piotr Daley DO Active IBUPROFEN 800 MG ORAL TABLET 1 po q 8 hours prn pain sparinly IBUPROFEN 77424488434 No Longer Active Piotr Daley DO Active VITAMIN D3 5000 UNIT ORAL CAPSULE 1 po daily CHOLECALCIFEROL 93176821892 Active Piotr Daley DO Active IBUPROFEN 800 MG ORAL TABLET 1 po q 8 hours prn pain sparinly IBUPROFEN 800 MG ORAL TABLET 777493 IBUPROFEN Inactive NYSTATIN-TRIAMCINOLONE 369858-7.1 UNIT/GM-% EXTERNAL CREAM apply bid NYSTATIN-TRIAMCINOLONE 593414-8.1 UNIT/GM-% EXTERNAL CREAM 1158748 NYSTATIN-TRIAMCINOLONE Inactive AZITHROMYCIN 500 MG INTRAVENOUS SOLUTION RECONSTITUTED 1 po q day AZITHROMYCIN 500 MG INTRAVENOUS SOLUTION RECONSTITUTED 11995252444 AZITHROMYCIN Inactive VENTOLIN HFA 108 (90 Base) MCG/ACT INHALATION AEROSOL SOLUTION 2 puffs four times a day PRN cough VENTOLIN HFA 108 (90 Base) MCG/ ACT INHALATION AEROSOL SOLUTION ALBUTEROL SULFATE Inactive LISINOPRIL 10 MG ORAL TABLET 1/2-1 tab po every other day LISINOPRIL 10 MG ORAL TABLET 013263 LISINOPRIL Inactive TUSSIONEX PENNKINETIC ER 10-8 MG/5ML ORAL SUSPENSION EXTENDED RELEASE 5ml po q12hr PRN Cough TUSSIONEX PENNKINETIC ER 10-8 MG/5ML ORAL SUSPENSION EXTENDED RELEASE HYDROCOD POLST-CHLORPHEN POLST Inactive PROMETHAZINE HCL 25 MG ORAL TABLET 1 four times a day as needed for nausea/ vomiting PROMETHAZINE HCL 25 MG ORAL TABLET 505390 PROMETHAZINE HCL Inactive PREDNISONE 20 MG ORAL TABLET 1 tablet twice daily for 2 days, then 1 tablet once daily for 2 days PREDNISONE 20 MG ORAL TABLET 817029 PREDNISONE Inactive WARFARIN SODIUM 4 MG ORAL TABLET 1 tab every evening WARFARIN SODIUM 4 MG ORAL TABLET 710865 WARFARIN SODIUM Inactive LOMOTIL 2.5-0.025 MG ORAL TABLET 1 to 2 four times a day as needed for diarrhea LOMOTIL 2.5-0.025 MG ORAL TABLET 1287586 DIPHENOXYLATE-ATROPINE Inactive IBUPROFEN 800 MG ORAL TABLET 1 tab every 8 hours as needed 07/12 IBUPROFEN 800 MG ORAL TABLET 844968 IBUPROFEN Inactive PREDNISONE 20 MG ORAL TABLET 2 tablets today, then 1 tablet days 2 through 4 PREDNISONE 20 MG ORAL TABLET 547503 PREDNISONE Inactive GABAPENTIN 300 MG ORAL CAPSULE 1 po q hs for nerve pain GABAPENTIN 300 MG ORAL CAPSULE 093767 GABAPENTIN Inactive TRAMADOL HCL 50 MG ORAL TABLET 1 po tid with ES Tylenol TRAMADOL HCL 50 MG ORAL TABLET 450468 TRAMADOL HCL Inactive PROAIR HFA 108 (90 BASE) MCG/ACT INHALATION AEROSOL SOLUTION 1-2 puffs four times a day as needed PROAIR HFA 108 (90 BASE) MCG/ACT INHALATION AEROSOL SOLUTION ALBUTEROL SULFATE Inactive PREDNISONE 20 MG ORAL TABLET two tabs by mouth today, then one tab by mouth days two and three PREDNISONE 20 MG ORAL TABLET 285046 PREDNISONE Inactive TESSALON PERLES 100 MG ORAL CAPSULE 1-2 tablet by mouth 3 times daily 04/16 TESSALON PERLES 100 MG ORAL CAPSULE 551729 BENZONATATE Inactive PREDNISONE 10 MG ORAL TABLET 1 tablet by mouth daily PREDNISONE 10 MG ORAL TABLET 733260 PREDNISONE Inactive NYSTATIN 965256 UNIT/GM EXTERNAL CREAM Apply to rash 2-3 times a day and may repeat as needed NYSTATIN 404074 UNIT/GM EXTERNAL CREAM 952874 NYSTATIN Inactive TRIAMCINOLONE ACETONIDE 0.1 % EXTERNAL CREAM apply bid sparingly to rash 2017 TRIAMCINOLONE ACETONIDE 0.1 % EXTERNAL CREAM 2338295 TRIAMCINOLONE ACETONIDE Inactive AZITHROMYCIN 250 MG ORAL TABLET 2 po qd x 1 day, then 1 po qd x 4 days 10/16 AZITHROMYCIN 250 MG ORAL TABLET 526823 AZITHROMYCIN Inactive AZITHROMYCIN 250 MG ORAL TABLET 2 po qd x 1 day, then 1 po qd x 4 days 10/21 AZITHROMYCIN 250 MG ORAL TABLET 401313 AZITHROMYCIN Inactive NYSTATIN-TRIAMCINOLONE 036909-8.1 UNIT/GM-% EXTERNAL CREAM Apply to area BID NYSTATIN-TRIAMCINOLONE 543498-5.1 UNIT/GM-% EXTERNAL CREAM 0711131 NYSTATIN-TRIAMCINOLONE Inactive AZITHROMYCIN 250 MG ORAL TABLET 2 po qd x 1 day, then 1 po qd x 4 days 05/07 AZITHROMYCIN 250 MG ORAL TABLET 444450 AZITHROMYCIN Inactive AZITHROMYCIN 250 MG ORAL TABLET 2 po qd x 1 day, then 1 po qd x 4 days 10/13 AZITHROMYCIN 250 MG ORAL TABLET 763504 AZITHROMYCIN Inactive AZITHROMYCIN 250 MG ORAL TABLET 2 po qd x 1 day, then 1 po qd x 4 days 07/12 AZITHROMYCIN 250 MG ORAL TABLET 466355 AZITHROMYCIN Inactive PREDNISONE 20 MG ORAL TABLET 2 tabs daily for 3 days, 1 tab daily for 3 days, 1/2 tab daily for 2 days PREDNISONE 20 MG ORAL TABLET 345548 PREDNISONE Inactive DOXYCYCLINE HYCLATE 100 MG ORAL CAPSULE 1 cap by mouth BID x10 days DOXYCYCLINE HYCLATE 100 MG ORAL CAPSULE 6672238 DOXYCYCLINE HYCLATE Inactive ZITHROMAX 250 MG ORAL TABLET Take two (2 ) tablets day one, then one (1) tablet a day for four (4) more days ZITHROMAX 250 MG ORAL TABLET 283348 AZITHROMYCIN Inactive Advance Directives Directive Description Start [...] Ag - Chemistry sodium, serum 141 mmol/L 906-074 3884/12/17 carbon dioxide, venous blood 30.9 mmol/L 21.0-32.0 [...] 0-29 Encounters Code Encounter Date Provider Facility CPT-50787 [id number] Vst-Est Level III 14:38:24 CPHT Piotr Daley [facility] CPT-86353 [id number] Vst-Est Level IV 08:51:04 CPHT Piotr Daley [facility] CPT-92666 58028-Sur Vst-Est Level III 14:29:05 CDT Piotr W [facility] CPT-02087 Level 3 Est. Patient 15:59:25 CPHT Piotr Daley [facility] CPT-46519 Level 3 Est. Patient 12:33:59 CPHT Piotr Daley [facility] CPT-05879 Level 3 Est. Patient 15:56:17 CPHT Piotr Daley [facility] CPT-39804 Level 3 Est. Patient 10:34:54 CPHT Piotr Daley [facility] CPT-70143 Level 3 Est. Patient 17:10:19 CDT Nella Harris APRN [facility] CPT-94009 Level 3 Est. Patient 10:48:17 CPHT Matthew Rangel MD [facility] CPT-69529 Level 4 Est. Patient 17:15:07 CPHT Piotr Katie Edi [facility] CPT-66316 Level 3 Est. Patient 12:46:13 CPHT Piotr Daley [facility] CPT-95769 Level 3 Est. Patient 15:14:31 CPHT Piotr Daley [facility] CPT-26347 Level 3 Est. Patient 09:20:13 CPHT Piotr Katie Edi [facility] CPT-58543 Level 3 Est. Patient 09:49:40 CDT Piotr Daley [facility] CPT-62271 Level 3 Est. Patient 16:28:11 CDT Piotr Wilson Edi [facility] CPT-22394 Level 3 Est. Patient 12:41:58 CPHT Piotr Daley [facility] CPT-60332 Level 3 Est. Patient 09:21:24 CDT Piotr Wilson [facility] CPT-16881 Level 3 Est. Patient 09:21:11 CDT Poitr Wilson Edi [facility] CPT-12162 Level 3 Est. Patient 11:16:29 CPHT Piotr Wilson Edi [facility] CPT-28728 Level 3 Est. Patient 18:40:19 CPHT Piotr Daley [facility] CPT-29553 Level 3 Est. Patient 19:30:50 CDT Piotr Daley [facility] CPT-84571 Level 3 Est. Patient 22:06:44 CDT Katrina Rinaldi MD [facility] CPT-88278 Level 3 Est. Patient 14:20:00 CDT Piotr Daley [facility] CPT-87102 Level 3 Est. Patient 14:15:22 CPHT Piotr Daley [facility] CPT-28111 Level 3 Est. Patient 20:19:57 CPHT Piotr Daley [facility] CPT-70689 Level 3 Est. Patient 16:44:32 CDT Piotr Daley [facility] CPT-42709 Level 3 Est. Patient 08:48:46 CPHT Piotr Daley [facility] CPT-95592 Level 3 Est. Patient 21:01:21 CDT Piotr Daley [facility] Procedures Code Procedure Name Date Entry Date Standard Description CPT-Cryo Cryotherapy 08:51:04 CPHT CPT-G0439 Subsequent Annual Wellness Exam 08:51:04 CPHT CPT-32269 Sacroiliac jt < 3V - XRAY USE ONLY 16:45:19 CPHT 05/09 CPT-29661 LS spine comp w obliques - XRAY USE ONLY 14:52:26 CPHT CPT-49377 Chest, 2 views 12:55:58 CPHT CPT-G0439 Subsequent Annual Wellness Exam 10:34:52 CPHT CPT-10944 BMP - LAB USE ONLY 17:19:11 CPHT CPT-03907 PT/INR - LAB USE ONLY 17:19:10 CPHT CPT-81267 Venipuncture Draw Fee 17:19:10 CPHT CPT-22057 PT/INR - LAB USE ONLY 08:12:25 CPHT CPT-01013 Venipuncture Draw Fee 08:12:24 CPHT CPT-04740 Venipuncture Draw Fee 11:31:07 CPHT CPT-93750 TPSA - LAB USE ONLY 11:31:07 CPHT CPT-01031 PT/INR - LAB USE ONLY 11:31:07 CPHT CPT-G0439 [facility] Annual Wellness Exam 09:59:29 CPHT CPT-20071 Creatinine - LAB USE ONLY 14:37:55 CPHT CPT-57171 PT/INR - LAB USE ONLY 14:37:55 CPHT CPT-09345 Venipuncture Draw Fee 14:37:55 CPHT CPT-11298 LS spine comp w obliques - XRAY USE ONLY 12:59:25 CPHT CPT-72172 PT/INR - LAB USE ONLY 13:49:20 CDT CPT-06727 Venipuncture Draw Fee 13:49:19 CDT CPT-98078 PT/INR - LAB USE ONLY 15:48:49 CDT CPT-55090 Venipuncture Draw Fee 15:48:49 CDT CPT-67944 Venipuncture Draw Fee 11:31:59 CDT CPT-48855 PT/INR - LAB USE ONLY 11:31:59 CDT CPT-26361 Venipuncture Draw Fee 13:29:15 CDT CPT-35664 Thoracolumbar AP/Lat 15:19:19 CPHT CPT-G0438 Initial Annual Wellness Exam 12:18:54 CPHT CPT-69893 Knee 3V 09:57:38 CDT CPT-OV Office Visit 15:45:01 CPHT CPT-06324 Abd compl w upright 17:10:25 CDT
--- OUTSIDE RECORDS SUMMARY | 2018-07-18 07:16 | XMS REPORT | Clinical Summary ---
Author Author Admin, [employer] Organization [employer] Address Unknown Phone Unavailable Allergies, Adverse Reactions, [...] neoplasm of prostate V10.46 Active Alina Meyers POSITION CLERK Personal history of malignant neoplasm of prostate Coronary artery disease 414.00 Active Alina Meyers APRN Coronary atherosclerosis of unspecified type of vessel, [place]a'[place] or graft Back pain, thoracic region, left [...] THROMBOPHLEBITIS, LEG, 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 Inactive Sirisha Chen COMMUNITY HEALTH NURSING DIRECTOR DEEP VENOUS THROMBOPHLEBITIS, LEG, 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 Inactive Sirisha Chen COMMUNITY HEALTH NURSING DIRECTOR Seborrheic keratosis ICD-702.19 Inactive Sirisha Chen COMMUNITY HEALTH NURSING DIRECTOR Bronchitis-Acute ICD-466.0 Inactive Piotr Daley DO Leg pain, right ICD-729.5 Inactive Sirisha Chen COMMUNITY HEALTH NURSING DIRECTOR Right leg pain ICD-729.5 Inactive Sirisha Chen COMMUNITY HEALTH NURSING DIRECTOR Bronchitis-Acute ICD-466.0 Inactive Sirisha Chen COMMUNITY HEALTH NURSING DIRECTOR Knee pain, left ICD-719.46 Inactive Sirisha Chen COMMUNITY HEALTH NURSING DIRECTOR Actinic keratoses ICD-702.0 Inactive Sirisha Chen COMMUNITY HEALTH NURSING DIRECTOR Back pain, thoracic region, left ICD-724.1 Inactive Piotr Daley DO Thoracic back pain ICD-724.5 Inactive Sirisha Chen COMMUNITY HEALTH NURSING DIRECTOR Back pain lumbar ICD-724.2 Inactive Sirisha Chen COMMUNITY HEALTH NURSING DIRECTOR Insect bite ICD-919.4 Inactive Sirisha Chen COMMUNITY HEALTH NURSING DIRECTOR Pruritus ICD-698.9 Inactive Sirisha Chen COMMUNITY HEALTH NURSING DIRECTOR 04/09 Bronchitis-Acute ICD-466.0 Inactive Sirisha Chen COMMUNITY HEALTH NURSING DIRECTOR Dyspnea ICD-786.09 Inactive Sirisha Chen COMMUNITY HEALTH NURSING DIRECTOR 05/09 Pes anserinus bursitis, right ICD-726.61 Inactive Piotr Daley DO Medication List Medication Instructions Start Date Stop Date Generic Name [facility] Status Provider Patient Instruction TRIAMCINOLONE ACETONIDE 0.1 % EXTERNAL CREAM apply bid sparingly to rash 2017 TRIAMCINOLONE ACETONIDE 81015356092 No Longer Active Piotr Daley DO Active NYSTATIN 734958 UNIT/GM EXTERNAL CREAM Apply to rash 2-3 times a day and may repeat as needed NYSTATIN 96245619291 No Longer Active Piotr Daley DO Active WARFARIN SODIUM 4 MG ORAL TABLET 1 tablet by mouth daily WARFARIN SODIUM 14612202986 Active Sirisha Chen LPN Active MELOXICAM 15 MG ORAL TABLET 1 po q day for pain with food MELOXICAM 27357871463 Active Piotr Daley DO Active PREDNISONE 10 MG ORAL TABLET 1 tablet by mouth daily PREDNISONE 42559199467 No Longer Active Emelyn Norris Active TESSALON PERLES 100 MG ORAL CAPSULE 1-2 tablet by mouth 3 times daily 04/16 BENZONATATE 57988572339 No Longer Active Emelyn Norris Active PREDNISONE 20 MG ORAL TABLET two tabs by mouth today, then one tab by mouth days two and three PREDNISONE 65354532057 No Longer Active Piotr Daley DO Active CYCLOBENZAPRINE HCL 10 MG ORAL TABLET 1 tablet by mouth three times daily as needed for muscle spasm/pain CYCLOBENZAPRINE HCL 11319467334 Active Sirisha Chen LPN Active ZITHROMAX 250 MG ORAL TABLET Take two (2 ) tablets day one, then one (1) tablet a day for four (4) more days AZITHROMYCIN 10799643332 No Longer Active Piotr Daley DO Active PROAIR HFA 108 (90 BASE) MCG/ACT INHALATION AEROSOL SOLUTION 1-2 puffs four times a day as needed ALBUTEROL SULFATE 54185146493 No Longer Active Emelyn Norris Active DOXYCYCLINE HYCLATE 100 MG ORAL CAPSULE 1 cap by mouth BID x10 days DOXYCYCLINE HYCLATE 09790419274 No Longer Active Nella Harris APRN Active PREDNISONE 20 MG ORAL TABLET 2 tabs daily for 3 days, 1 tab daily for 3 days, 1/2 tab daily for 2 days PREDNISONE 42158355786 No Longer Active Matthew Rangel MD Active TRAMADOL HCL 50 MG ORAL TABLET 1 po tid with ES Tylenol TRAMADOL HCL 53230774970 No Longer Active Matthew Rangel MD Active GABAPENTIN 300 MG ORAL CAPSULE 1 po q hs for nerve pain GABAPENTIN 80439807400 No Longer Active Matthew Rangel MD Active PREDNISONE 20 MG ORAL TABLET 2 tablets today, then 1 tablet days 2 through 4 PREDNISONE 98906345577 No Longer Active Piotr Daley DO Active AZITHROMYCIN 250 MG ORAL TABLET 2 po qd x 1 day, then 1 po qd x 4 days 07/12 AZITHROMYCIN 76210963221 No Longer Active Piotr Daley DO Active IBUPROFEN 800 MG ORAL TABLET 1 tab every 8 hours as needed 07/12 IBUPROFEN 73584586440 No Longer Active Piotr Daley DO Active LOMOTIL 2.5-0.025 MG ORAL TABLET 1 to 2 four times a day as needed for diarrhea DIPHENOXYLATE-ATROPINE 20719921555 No Longer Active Piotr Daley DO Active WARFARIN SODIUM 4 MG ORAL TABLET 1 tab every evening WARFARIN SODIUM 46802874919 No Longer Active Piotr Daley DO Active PREDNISONE 20 MG ORAL TABLET 1 tablet twice daily for 2 days, then 1 tablet once daily for 2 days PREDNISONE 05399818880 No Longer Active Piotr Daley DO Active PROMETHAZINE HCL 25 MG ORAL TABLET 1 four times a day as needed for nausea/ vomiting PROMETHAZINE HCL 89173407400 No Longer Active Piotr Daley DO Active TUSSIONEX PENNKINETIC ER 10-8 MG/5ML ORAL SUSPENSION EXTENDED RELEASE 5ml po q12hr PRN Cough HYDROCOD POLST-CHLORPHEN POLST 60384026646 No Longer Active Piotr Daley DO Active AZITHROMYCIN 250 MG ORAL TABLET 2 po qd x 1 day, then 1 po qd x 4 days 10/13 AZITHROMYCIN 56307397970 No Longer Active Piotr Daley DO Active AZITHROMYCIN 250 MG ORAL TABLET 2 po qd x 1 day, then 1 po qd x 4 days 05/07 AZITHROMYCIN 61400615153 No Longer Active Piotr Daley DO Active LISINOPRIL-HYDROCHLOROTHIAZIDE 10-12.5 MG ORAL TABLET 1 tab by mouth daily LISINOPRIL-HYDROCHLOROTHIAZIDE 07799272554 Active Sirisha Gustavo COMMUNITY HEALTH NURSING DIRECTOR Active LISINOPRIL 10 MG ORAL TABLET 1/2-1 tab po every other day LISINOPRIL 76639803654 No Longer Active Piotr Daley DO Active VENTOLIN HFA 108 (90 Base) MCG/ACT INHALATION AEROSOL SOLUTION 2 puffs four times a day PRN cough ALBUTEROL SULFATE 28073997973 No Longer Active Piotr Daley DO Active NYSTATIN-TRIAMCINOLONE 985221-9.1 UNIT/GM-% EXTERNAL CREAM Apply to area BID NYSTATIN-TRIAMCINOLONE 11822340353 No Longer Active Alena Chavira COMMUNITY HEALTH NURSING DIRECTOR Active PHISOHEX 3 % LIQD Use Directed HEXACHLOROPHENE 62044964551 No Longer Active Sandra Dahlen Active AZITHROMYCIN 250 MG ORAL TABLET 2 po qd x 1 day, then 1 po qd x 4 days 10/21 AZITHROMYCIN 65742298137 No Longer Active Katrina Rinaldi MD PhD Active AZITHROMYCIN 250 MG ORAL TABLET 2 po qd x 1 day, then 1 po qd x 4 days 10/16 AZITHROMYCIN 56585309375 No Longer Active Piotr Daley DO Active AZITHROMYCIN 500 MG INTRAVENOUS SOLUTION RECONSTITUTED 1 po q day AZITHROMYCIN 38420689606 No Longer Active Piotr Daley DO Active NYSTATIN-TRIAMCINOLONE 941238-5.1 UNIT/GM-% EXTERNAL CREAM apply bid NYSTATIN-TRIAMCINOLONE 01922022184 No Longer Active Piotr Daley DO Active IBUPROFEN 800 MG ORAL TABLET 1 po q 8 hours prn pain sparinly IBUPROFEN 78915864950 No Longer Active Piotr Daley DO Active VITAMIN D3 5000 UNIT ORAL CAPSULE 1 po daily CHOLECALCIFEROL 98752181845 Active Piotr Daley DO Active IBUPROFEN 800 MG ORAL TABLET 1 po q 8 hours prn pain sparinly IBUPROFEN 800 MG ORAL TABLET 132500 IBUPROFEN Inactive NYSTATIN-TRIAMCINOLONE 186306-6.1 UNIT/GM-% EXTERNAL CREAM apply bid NYSTATIN-TRIAMCINOLONE 135586-7.1 UNIT/GM-% EXTERNAL CREAM 5518411 NYSTATIN-TRIAMCINOLONE Inactive AZITHROMYCIN 500 MG INTRAVENOUS SOLUTION RECONSTITUTED 1 po q day AZITHROMYCIN 500 MG INTRAVENOUS SOLUTION RECONSTITUTED 39914246637 AZITHROMYCIN Inactive VENTOLIN HFA 108 (90 Base) MCG/ACT INHALATION AEROSOL SOLUTION 2 puffs four times a day PRN cough VENTOLIN HFA 108 (90 Base) MCG/ ACT INHALATION AEROSOL SOLUTION ALBUTEROL SULFATE Inactive LISINOPRIL 10 MG ORAL TABLET 1/2-1 tab po every other day LISINOPRIL 10 MG ORAL TABLET 294047 LISINOPRIL Inactive TUSSIONEX PENNKINETIC ER 10-8 MG/5ML ORAL SUSPENSION EXTENDED RELEASE 5ml po q12hr PRN Cough TUSSIONEX PENNKINETIC ER 10-8 MG/5ML ORAL SUSPENSION EXTENDED RELEASE HYDROCOD POLST-CHLORPHEN POLST Inactive PROMETHAZINE HCL 25 MG ORAL TABLET 1 four times a day as needed for nausea/ vomiting PROMETHAZINE HCL 25 MG ORAL TABLET 415929 PROMETHAZINE HCL Inactive PREDNISONE 20 MG ORAL TABLET 1 tablet twice daily for 2 days, then 1 tablet once daily for 2 days PREDNISONE 20 MG ORAL TABLET 853758 PREDNISONE Inactive WARFARIN SODIUM 4 MG ORAL TABLET 1 tab every evening WARFARIN SODIUM 4 MG ORAL TABLET 417167 WARFARIN SODIUM Inactive LOMOTIL 2.5-0.025 MG ORAL TABLET 1 to 2 four times a day as needed for diarrhea LOMOTIL 2.5-0.025 MG ORAL TABLET 9815341 DIPHENOXYLATE-ATROPINE Inactive IBUPROFEN 800 MG ORAL TABLET 1 tab every 8 hours as needed 07/12 IBUPROFEN 800 MG ORAL TABLET 117155 IBUPROFEN Inactive PREDNISONE 20 MG ORAL TABLET 2 tablets today, then 1 tablet days 2 through 4 PREDNISONE 20 MG ORAL TABLET 600066 PREDNISONE Inactive GABAPENTIN 300 MG ORAL CAPSULE 1 po q hs for nerve pain GABAPENTIN 300 MG ORAL CAPSULE 177519 GABAPENTIN Inactive TRAMADOL HCL 50 MG ORAL TABLET 1 po tid with ES Tylenol TRAMADOL HCL 50 MG ORAL TABLET 538762 TRAMADOL HCL Inactive PROAIR HFA 108 (90 BASE) MCG/ACT INHALATION AEROSOL SOLUTION 1-2 puffs four times a day as needed PROAIR HFA 108 (90 BASE) MCG/ACT INHALATION AEROSOL SOLUTION ALBUTEROL SULFATE Inactive PREDNISONE 20 MG ORAL TABLET two tabs by mouth today, then one tab by mouth days two and three PREDNISONE 20 MG ORAL TABLET 180853 PREDNISONE Inactive TESSALON PERLES 100 MG ORAL CAPSULE 1-2 tablet by mouth 3 times daily 04/16 TESSALON PERLES 100 MG ORAL CAPSULE 209206 BENZONATATE Inactive PREDNISONE 10 MG ORAL TABLET 1 tablet by mouth daily PREDNISONE 10 MG ORAL TABLET 972950 PREDNISONE Inactive NYSTATIN 999459 UNIT/GM EXTERNAL CREAM Apply to rash 2-3 times a day and may repeat as needed NYSTATIN 584955 UNIT/GM EXTERNAL CREAM 144684 NYSTATIN Inactive TRIAMCINOLONE ACETONIDE 0.1 % EXTERNAL CREAM apply bid sparingly to rash 2017 TRIAMCINOLONE ACETONIDE 0.1 % EXTERNAL CREAM 2187330 TRIAMCINOLONE ACETONIDE Inactive AZITHROMYCIN 250 MG ORAL TABLET 2 po qd x 1 day, then 1 po qd x 4 days 10/16 AZITHROMYCIN 250 MG ORAL TABLET 138032 AZITHROMYCIN Inactive AZITHROMYCIN 250 MG ORAL TABLET 2 po qd x 1 day, then 1 po qd x 4 days 10/21 AZITHROMYCIN 250 MG ORAL TABLET 804237 AZITHROMYCIN Inactive NYSTATIN-TRIAMCINOLONE 657815-1.1 UNIT/GM-% EXTERNAL CREAM Apply to area BID NYSTATIN-TRIAMCINOLONE 311095-1.1 UNIT/GM-% EXTERNAL CREAM 1064912 NYSTATIN-TRIAMCINOLONE Inactive AZITHROMYCIN 250 MG ORAL TABLET 2 po qd x 1 day, then 1 po qd x 4 days 05/07 AZITHROMYCIN 250 MG ORAL TABLET 942100 AZITHROMYCIN Inactive AZITHROMYCIN 250 MG ORAL TABLET 2 po qd x 1 day, then 1 po qd x 4 days 10/13 AZITHROMYCIN 250 MG ORAL TABLET 883941 AZITHROMYCIN Inactive AZITHROMYCIN 250 MG ORAL TABLET 2 po qd x 1 day, then 1 po qd x 4 days 07/12 AZITHROMYCIN 250 MG ORAL TABLET 318272 AZITHROMYCIN Inactive PREDNISONE 20 MG ORAL TABLET 2 tabs daily for 3 days, 1 tab daily for 3 days, 1/2 tab daily for 2 days PREDNISONE 20 MG ORAL TABLET 059702 PREDNISONE Inactive DOXYCYCLINE HYCLATE 100 MG ORAL CAPSULE 1 cap by mouth BID x10 days DOXYCYCLINE HYCLATE 100 MG ORAL CAPSULE 5418855 DOXYCYCLINE HYCLATE Inactive ZITHROMAX 250 MG ORAL TABLET Take two (2 ) tablets day one, then one (1) tablet a day for four (4) more days ZITHROMAX 250 MG ORAL TABLET 972552 AZITHROMYCIN Inactive Advance Directives Directive Description Start [...] Ag - Chemistry sodium, serum 141 mmol/L 870-248 7695/12/17 carbon dioxide, venous blood 30.9 mmol/L 21.0-32.0 [...] 0-29 Encounters Code Encounter Date Provider Facility CPT-95305 [id number] Vst-Est Level III 14:38:24 WOOL BROKER Piotr Daley [facility] CPT-99894 [id number] Vst-Est Level IV 08:51:04 WOOL BROKER Piotr Daley [facility] CPT-87003 [id number] Vst-Est Level III 14:29:[address] [facility] CPT-80413 Level 3 Est. Patient 15:59:25 WOOL BROKER Piotr Daley [facility] CPT-55038 Level 3 Est. Patient 12:33:59 WOOL BROKER Piotr Daley [facility] CPT-77308 Level 3 Est. Patient 15:56:17 WOOL BROKER Piotr Daley [facility] CPT-39335 Level 3 Est. Patient 10:34:54 WOOL BROKER Piotr Daley [facility] CPT-05298 Level 3 Est. Patient 17:10:19 CDT Nella Harris APRN [facility] CPT-97186 Level 3 Est. Patient 10:48:17 WOOL BROKER Matthew Rangel MD [facility] CPT-31137 Level 4 Est. Patient 17:15:07 WOOL BROKER Piotr Katie Eid [facility] CPT-11949 Level 3 Est. Patient 12:46:13 WOOL BROKER Piotr Daley [facility] CPT-29824 Level 3 Est. Patient 15:14:31 WOOL BROKER Piotr Daley [facility] CPT-22154 Level 3 Est. Patient 09:20:13 WOOL BROKER Piotr Katie Edi [facility] CPT-82700 Level 3 Est. Patient 09:49:40 CDT Piotr Daley [facility] CPT-77877 Level 3 Est. Patient 16:28:11 CDT Piotr Wilson Edi [facility] CPT-18726 Level 3 Est. Patient 12:41:58 WOOL BROKER Piotr Daley [facility] CPT-07063 Level 3 Est. Patient 09:21:[address] [facility] CPT-19388 Level 3 Est. Patient 09:21:11 CDT Piotr Wilson Edi [facility] CPT-80899 Level 3 Est. Patient 11:16:29 WOOL BROKER Piotr Wilson Edi [facility] CPT-41431 Level 3 Est. Patient 18:40:19 WOOL BROKER Piotr Daley [facility] CPT-66462 Level 3 Est. Patient 19:30:50 CDT Piotr Daley [facility] CPT-95430 Level 3 Est. Patient 22:06:44 CDT Katrina Rinaldi MD [facility] CPT-36211 Level 3 Est. Patient 14:20:00 CDT Piotr Daley [facility] CPT-10695 Level 3 Est. Patient 14:15:22 WOOL BROKER Piotr Daley [facility] CPT-12914 Level 3 Est. Patient 20:19:57 WOOL BROKER Piotr Daley [facility] CPT-36631 Level 3 Est. Patient 16:44:32 CDT Piotr Daley [facility] CPT-97670 Level 3 Est. Patient 08:48:46 WOOL BROKER Piotr Daley [facility] CPT-58574 Level 3 Est. Patient 21:01:21 CDT Piotr Daley [facility] Procedures Code Procedure Name Date Entry Date Standard Description CPT-Cryo Cryotherapy 08:51:04 WOOL BROKER CPT-G0439 Subsequent Annual Wellness Exam 08:51:04 WOOL BROKER CPT-13205 Sacroiliac jt < 3V - XRAY USE ONLY 16:45:19 WOOL BROKER 05/09 CPT-26218 LS spine comp w obliques - XRAY USE ONLY 14:52:26 WOOL BROKER CPT-09410 Chest, 2 views 12:55:58 WOOL BROKER CPT-G0439 Subsequent Annual Wellness Exam 10:34:52 WOOL BROKER CPT-99951 BMP - LAB USE ONLY 17:19:11 WOOL BROKER CPT-43724 PT/INR - LAB USE ONLY 17:19:10 WOOL BROKER CPT-91999 Venipuncture Draw Fee 17:19:10 WOOL BROKER CPT-07613 PT/INR - LAB USE ONLY 08:12:25 WOOL BROKER CPT-95747 Venipuncture Draw Fee 08:12:24 WOOL BROKER CPT-16875 Venipuncture Draw Fee 11:31:07 WOOL BROKER CPT-19645 TPSA - LAB USE ONLY 11:31:07 WOOL BROKER CPT-90483 PT/INR - LAB USE ONLY 11:31:07 WOOL BROKER CPT-G0439 [facility] Annual Wellness Exam 09:59:29 WOOL BROKER CPT-94026 Creatinine - LAB USE ONLY 14:37:55 WOOL BROKER CPT-35574 PT/INR - LAB USE ONLY 14:37:55 WOOL BROKER CPT-72295 Venipuncture Draw Fee 14:37:55 WOOL BROKER CPT-21016 LS spine comp w obliques - XRAY USE ONLY 12:59:25 WOOL BROKER CPT-53016 PT/INR - LAB USE ONLY 13:49:20 CDT CPT-25874 Venipuncture Draw Fee 13:49:19 CDT CPT-02749 PT/INR - LAB USE ONLY 15:48:49 CDT CPT-34889 Venipuncture Draw Fee 15:48:49 CDT CPT-02136 Venipuncture Draw Fee 11:31:59 CDT CPT-09497 PT/INR - LAB USE ONLY 11:31:59 CDT CPT-32672 Venipuncture Draw Fee 13:29:15 CDT CPT-95218 Thoracolumbar AP/Lat 15:19:19 WOOL BROKER CPT-G0438 Initial Annual Wellness Exam 12:18:54 WOOL BROKER CPT-20029 Knee 3V 09:57:38 CDT CPT-OV Office Visit 15:45:01 WOOL BROKER CPT-70133 Abd compl w upright 17:10:25 CDT
[2018-07-18 07:17] LABS: INR 1.3 (0.8-1.4)
--- OUTSIDE RECORDS SUMMARY | 2018-07-18 07:17 | XMS REPORT | Clinical Summary ---
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 Meyers TIME MOTION ANALYST Personal history of malignant neoplasm of prostate Coronary artery disease 414.00 Active Alina Meyers APRN Coronary atherosclerosis of unspecified type of vessel, [place] or graft Back pain, thoracic region, left [...] THROMBOPHLEBITIS, LEG, 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 Inactive Sirisha Chen PANEL SEWER DEEP VENOUS THROMBOPHLEBITIS, LEG, 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 Inactive Sirisha Chen PANEL SEWER Seborrheic keratosis ICD-702.19 Inactive Sirisha Chen PANEL SEWER Bronchitis-Acute ICD-466.0 Inactive Piotr Daley DO Leg pain, right ICD-729.5 Inactive Sirisha Chen PANEL SEWER Right leg pain ICD-729.5 Inactive Sirisha Chen PANEL SEWER Bronchitis-Acute ICD-466.0 Inactive Sirisha Chen PANEL SEWER Knee pain, left ICD-719.46 Inactive Sirisha Chen PANEL SEWER Actinic keratoses ICD-702.0 Inactive Sirisha Chen PANEL SEWER Back pain, thoracic region, left ICD-724.1 Inactive Piotr Daley DO Thoracic back pain ICD-724.5 Inactive Sirisha Chen PANEL SEWER Back pain lumbar ICD-724.2 Inactive Sirisha Chen PANEL SEWER Insect bite ICD-919.4 Inactive Sirisha Chen PANEL SEWER Pruritus ICD-698.9 Inactive Sirisha Chen PANEL SEWER 04/09 Bronchitis-Acute ICD-466.0 Inactive Sirisha Chen PANEL SEWER Dyspnea ICD-786.09 Inactive Sirisha Chen PANEL SEWER 05/09 Pes anserinus bursitis, right ICD-726.61 Inactive Piotr Daley DO Medication List Medication Instructions Start Date Stop Date Generic Name [facility] Status Provider Patient Instruction TRIAMCINOLONE ACETONIDE 0.1 % EXTERNAL CREAM apply bid sparingly to rash 2017 TRIAMCINOLONE ACETONIDE 95793499971 No Longer Active Piotr Daley DO Active NYSTATIN 870686 UNIT/GM EXTERNAL CREAM Apply to rash 2-3 times a day and may repeat as needed NYSTATIN 95408363413 No Longer Active Piotr Daley DO Active WARFARIN SODIUM 4 MG ORAL TABLET 1 tablet by mouth daily WARFARIN SODIUM 64029191345 Active Sirisha Chen LPN Active MELOXICAM 15 MG ORAL TABLET 1 po q day for pain with food MELOXICAM 19480622802 Active Piotr Daley DO Active PREDNISONE 10 MG ORAL TABLET 1 tablet by mouth daily PREDNISONE 19524684968 No Longer Active Emelyn Norris Active TESSALON PERLES 100 MG ORAL CAPSULE 1-2 tablet by mouth 3 times daily 04/16 BENZONATATE 55146129598 No Longer Active Emelyn Norris Active PREDNISONE 20 MG ORAL TABLET two tabs by mouth today, then one tab by mouth days two and three PREDNISONE 72706646844 No Longer Active Piotr Daley DO Active CYCLOBENZAPRINE HCL 10 MG ORAL TABLET 1 tablet by mouth three times daily as needed for muscle spasm/pain CYCLOBENZAPRINE HCL 94142747488 Active Sirisha Chen LPN Active ZITHROMAX 250 MG ORAL TABLET Take two (2 ) tablets day one, then one (1) tablet a day for four (4) more days AZITHROMYCIN 68373167165 No Longer Active Piotr Daley DO Active PROAIR HFA 108 (90 BASE) MCG/ACT INHALATION AEROSOL SOLUTION 1-2 puffs four times a day as needed ALBUTEROL SULFATE 47223778007 No Longer Active Emelyn Norris Active DOXYCYCLINE HYCLATE 100 MG ORAL CAPSULE 1 cap by mouth BID x10 days DOXYCYCLINE HYCLATE 07168648665 No Longer Active Nella Harris APRN Active PREDNISONE 20 MG ORAL TABLET 2 tabs daily for 3 days, 1 tab daily for 3 days, 1/2 tab daily for 2 days PREDNISONE 27744657224 No Longer Active Matthew Rangel MD Active TRAMADOL HCL 50 MG ORAL TABLET 1 po tid with ES Tylenol TRAMADOL HCL 49316363639 No Longer Active Matthew Rangel MD Active GABAPENTIN 300 MG ORAL CAPSULE 1 po q hs for nerve pain GABAPENTIN 38876056722 No Longer Active Matthew Rangel MD Active PREDNISONE 20 MG ORAL TABLET 2 tablets today, then 1 tablet days 2 through 4 PREDNISONE 51444976663 No Longer Active Piotr Daley DO Active AZITHROMYCIN 250 MG ORAL TABLET 2 po qd x 1 day, then 1 po qd x 4 days 07/12 AZITHROMYCIN 35498283121 No Longer Active Piotr Daley DO Active IBUPROFEN 800 MG ORAL TABLET 1 tab every 8 hours as needed 07/12 IBUPROFEN 33014468845 No Longer Active Piotr aDley DO Active LOMOTIL 2.5-0.025 MG ORAL TABLET 1 to 2 four times a day as needed for diarrhea DIPHENOXYLATE-ATROPINE 10379468619 No Longer Active Piotr Daley DO Active WARFARIN SODIUM 4 MG ORAL TABLET 1 tab every evening WARFARIN SODIUM 14794958266 No Longer Active Piotr Daley DO Active PREDNISONE 20 MG ORAL TABLET 1 tablet twice daily for 2 days, then 1 tablet once daily for 2 days PREDNISONE 35482679811 No Longer Active Piotr Daley DO Active PROMETHAZINE HCL 25 MG ORAL TABLET 1 four times a day as needed for nausea/ vomiting PROMETHAZINE HCL 29929967206 No Longer Active Piotr Daley DO Active TUSSIONEX PENNKINETIC ER 10-8 MG/5ML ORAL SUSPENSION EXTENDED RELEASE 5ml po q12hr PRN Cough HYDROCOD POLST-CHLORPHEN POLST 27470158772 No Longer Active Piotr Daley DO Active AZITHROMYCIN 250 MG ORAL TABLET 2 po qd x 1 day, then 1 po qd x 4 days 10/13 AZITHROMYCIN 70728912032 No Longer Active Piotr Daley DO Active AZITHROMYCIN 250 MG ORAL TABLET 2 po qd x 1 day, then 1 po qd x 4 days 05/07 AZITHROMYCIN 05168169445 No Longer Active Piotr Daley DO Active LISINOPRIL-HYDROCHLOROTHIAZIDE 10-12.5 MG ORAL TABLET 1 tab by mouth daily LISINOPRIL-HYDROCHLOROTHIAZIDE 11675157051 Active Sirisha Gustavo PANEL SEWER Active LISINOPRIL 10 MG ORAL TABLET 1/2-1 tab po every other day LISINOPRIL 71607990010 No Longer Active Piotr Daley DO Active VENTOLIN HFA 108 (90 Base) MCG/ACT INHALATION AEROSOL SOLUTION 2 puffs four times a day PRN cough ALBUTEROL SULFATE 20985956435 No Longer Active Piotr Daley DO Active NYSTATIN-TRIAMCINOLONE 613145-2.1 UNIT/GM-% EXTERNAL CREAM Apply to area BID NYSTATIN-TRIAMCINOLONE 70126336399 No Longer Active Alena Chavira PANEL SEWER Active PHISOHEX 3 % LIQD Use Directed HEXACHLOROPHENE 51364170587 No Longer Active Sandra [place] Active AZITHROMYCIN 250 MG ORAL TABLET 2 po qd x 1 day, then 1 po qd x 4 days 10/21 AZITHROMYCIN 01373150017 No Longer Active Katrina Rinaldi MD PhD Active AZITHROMYCIN 250 MG ORAL TABLET 2 po qd x 1 day, then 1 po qd x 4 days 10/16 AZITHROMYCIN 70540034325 No Longer Active Piotr Daley DO Active AZITHROMYCIN 500 MG INTRAVENOUS SOLUTION RECONSTITUTED 1 po q day AZITHROMYCIN 99845248242 No Longer Active Piotr Daley DO Active NYSTATIN-TRIAMCINOLONE 195859-8.1 UNIT/GM-% EXTERNAL CREAM apply bid NYSTATIN-TRIAMCINOLONE 26914589224 No Longer Active Piotr Daley DO Active IBUPROFEN 800 MG ORAL TABLET 1 po q 8 hours prn pain sparinly IBUPROFEN 55203893328 No Longer Active Piotr Daley DO Active VITAMIN D3 5000 UNIT ORAL CAPSULE 1 po daily CHOLECALCIFEROL 69039191868 Active Piotr Daley DO Active IBUPROFEN 800 MG ORAL TABLET 1 po q 8 hours prn pain sparinly IBUPROFEN 800 MG ORAL TABLET 279635 IBUPROFEN Inactive NYSTATIN-TRIAMCINOLONE 470137-6.1 UNIT/GM-% EXTERNAL CREAM apply bid NYSTATIN-TRIAMCINOLONE 671464-5.1 UNIT/GM-% EXTERNAL CREAM 4964153 NYSTATIN-TRIAMCINOLONE Inactive AZITHROMYCIN 500 MG INTRAVENOUS SOLUTION RECONSTITUTED 1 po q day AZITHROMYCIN 500 MG INTRAVENOUS SOLUTION RECONSTITUTED 12026242959 AZITHROMYCIN Inactive VENTOLIN HFA 108 (90 Base) MCG/ACT INHALATION AEROSOL SOLUTION 2 puffs four times a day PRN cough VENTOLIN HFA 108 (90 Base) MCG/ ACT INHALATION AEROSOL SOLUTION ALBUTEROL SULFATE Inactive LISINOPRIL 10 MG ORAL TABLET 1/2-1 tab po every other day LISINOPRIL 10 MG ORAL TABLET 880116 LISINOPRIL Inactive TUSSIONEX PENNKINETIC ER 10-8 MG/5ML ORAL SUSPENSION EXTENDED RELEASE 5ml po q12hr PRN Cough TUSSIONEX PENNKINETIC ER 10-8 MG/5ML ORAL SUSPENSION EXTENDED RELEASE HYDROCOD POLST-CHLORPHEN POLST Inactive PROMETHAZINE HCL 25 MG ORAL TABLET 1 four times a day as needed for nausea/ vomiting PROMETHAZINE HCL 25 MG ORAL TABLET 619948 PROMETHAZINE HCL Inactive PREDNISONE 20 MG ORAL TABLET 1 tablet twice daily for 2 days, then 1 tablet once daily for 2 days PREDNISONE 20 MG ORAL TABLET 698022 PREDNISONE Inactive WARFARIN SODIUM 4 MG ORAL TABLET 1 tab every evening WARFARIN SODIUM 4 MG ORAL TABLET 101238 WARFARIN SODIUM Inactive LOMOTIL 2.5-0.025 MG ORAL TABLET 1 to 2 four times a day as needed for diarrhea LOMOTIL 2.5-0.025 MG ORAL TABLET 4233832 DIPHENOXYLATE-ATROPINE Inactive IBUPROFEN 800 MG ORAL TABLET 1 tab every 8 hours as needed 07/12 IBUPROFEN 800 MG ORAL TABLET 721410 IBUPROFEN Inactive PREDNISONE 20 MG ORAL TABLET 2 tablets today, then 1 tablet days 2 through 4 PREDNISONE 20 MG ORAL TABLET 241835 PREDNISONE Inactive GABAPENTIN 300 MG ORAL CAPSULE 1 po q hs for nerve pain GABAPENTIN 300 MG ORAL CAPSULE 874980 GABAPENTIN Inactive TRAMADOL HCL 50 MG ORAL TABLET 1 po tid with ES Tylenol TRAMADOL HCL 50 MG ORAL TABLET 888715 TRAMADOL HCL Inactive PROAIR HFA 108 (90 BASE) MCG/ACT INHALATION AEROSOL SOLUTION 1-2 puffs four times a day as needed PROAIR HFA 108 (90 BASE) MCG/ACT INHALATION AEROSOL SOLUTION ALBUTEROL SULFATE Inactive PREDNISONE 20 MG ORAL TABLET two tabs by mouth today, then one tab by mouth days two and three PREDNISONE 20 MG ORAL TABLET 599656 PREDNISONE Inactive TESSALON PERLES 100 MG ORAL CAPSULE 1-2 tablet by mouth 3 times daily 04/16 TESSALON PERLES 100 MG ORAL CAPSULE 154280 BENZONATATE Inactive PREDNISONE 10 MG ORAL TABLET 1 tablet by mouth daily PREDNISONE 10 MG ORAL TABLET 902678 PREDNISONE Inactive NYSTATIN 438564 UNIT/GM EXTERNAL CREAM Apply to rash 2-3 times a day and may repeat as needed NYSTATIN 540714 UNIT/GM EXTERNAL CREAM 188059 NYSTATIN Inactive TRIAMCINOLONE ACETONIDE 0.1 % EXTERNAL CREAM apply bid sparingly to rash 2017 TRIAMCINOLONE ACETONIDE 0.1 % EXTERNAL CREAM 1507020 TRIAMCINOLONE ACETONIDE Inactive AZITHROMYCIN 250 MG ORAL TABLET 2 po qd x 1 day, then 1 po qd x 4 days 10/16 AZITHROMYCIN 250 MG ORAL TABLET 851447 AZITHROMYCIN Inactive AZITHROMYCIN 250 MG ORAL TABLET 2 po qd x 1 day, then 1 po qd x 4 days 10/21 AZITHROMYCIN 250 MG ORAL TABLET 542103 AZITHROMYCIN Inactive NYSTATIN-TRIAMCINOLONE 411612-2.1 UNIT/GM-% EXTERNAL CREAM Apply to area BID NYSTATIN-TRIAMCINOLONE 728153-3.1 UNIT/GM-% EXTERNAL CREAM 2239241 NYSTATIN-TRIAMCINOLONE Inactive AZITHROMYCIN 250 MG ORAL TABLET 2 po qd x 1 day, then 1 po qd x 4 days 05/07 AZITHROMYCIN 250 MG ORAL TABLET 390494 AZITHROMYCIN Inactive AZITHROMYCIN 250 MG ORAL TABLET 2 po qd x 1 day, then 1 po qd x 4 days 10/13 AZITHROMYCIN 250 MG ORAL TABLET 625523 AZITHROMYCIN Inactive AZITHROMYCIN 250 MG ORAL TABLET 2 po qd x 1 day, then 1 po qd x 4 days 07/12 AZITHROMYCIN 250 MG ORAL TABLET 053656 AZITHROMYCIN Inactive PREDNISONE 20 MG ORAL TABLET 2 tabs daily for 3 days, 1 tab daily for 3 days, 1/2 tab daily for 2 days PREDNISONE 20 MG ORAL TABLET 308054 PREDNISONE Inactive DOXYCYCLINE HYCLATE 100 MG ORAL CAPSULE 1 cap by mouth BID x10 days DOXYCYCLINE HYCLATE 100 MG ORAL CAPSULE 6130928 DOXYCYCLINE HYCLATE Inactive ZITHROMAX 250 MG ORAL TABLET Take two (2 ) tablets day one, then one (1) tablet a day for four (4) more days ZITHROMAX 250 MG ORAL TABLET 888499 AZITHROMYCIN Inactive Advance Directives Directive Description Start [...] Ag - Chemistry sodium, serum 141 mmol/L 513-677 5157/12/17 carbon dioxide, venous blood 30.9 mmol/L 21.0-32.0 [...] 0-29 Encounters Code Encounter Date Provider Facility CPT-79527 [id number] Vst-Est Level III 14:38:24 FORENSICS TEAM DIRECTOR Piotr Daley [facility] CPT-66122 [id number] Vst-Est Level IV 08:51:04 FORENSICS TEAM DIRECTOR Piotr Daley [facility] CPT-00658 [id number] Vst-Est Level III 14:29:05 CDT Piotr W [facility] CPT-16944 Level 3 Est. Patient 15:59:25 FORENSICS TEAM DIRECTOR Piotr Daley [facility] CPT-31621 Level 3 Est. Patient 12:33:59 FORENSICS TEAM DIRECTOR Piotr Daley [facility] CPT-77225 Level 3 Est. Patient 15:56:17 FORENSICS TEAM DIRECTOR Piotr Daley [facility] CPT-62751 Level 3 Est. Patient 10:34:54 FORENSICS TEAM DIRECTOR Piotr Daley [facility] CPT-09940 Level 3 Est. Patient 17:10:19 CDT Nella Harris APRN [facility] CPT-38189 Level 3 Est. Patient 10:48:17 FORENSICS TEAM DIRECTOR Matthew Rangel MD [facility] CPT-15292 Level 4 Est. Patient 17:15:07 FORENSICS TEAM DIRECTOR Piotr Katie Edi [facility] CPT-04469 Level 3 Est. Patient 12:46:13 FORENSICS TEAM DIRECTOR Piotr Daley [facility] CPT-39382 Level 3 Est. Patient 15:14:31 FORENSICS TEAM DIRECTOR Piotr Daley [facility] CPT-16793 Level 3 Est. Patient 09:20:13 FORENSICS TEAM DIRECTOR Piotr Katie Edi [facility] CPT-55008 Level 3 Est. Patient 09:49:40 CDT Piotr Daley [facility] CPT-05018 Level 3 Est. Patient 16:28:11 CDT Piotr Wilson Edi [facility] CPT-86369 Level 3 Est. Patient 12:41:58 FORENSICS TEAM DIRECTOR Piotr Daley [facility] CPT-60696 Level 3 Est. Patient 09:21:24 CDT Piotr Wilson [facility] CPT-49504 Level 3 Est. Patient 09:21:11 CDT Piotr Wilson Edi [facility] CPT-38998 Level 3 Est. Patient 11:16:29 FORENSICS TEAM DIRECTOR Piotr Wilson Edi [facility] CPT-36291 Level 3 Est. Patient 18:40:19 FORENSICS TEAM DIRECTOR Piotr Daley [facility] CPT-14853 Level 3 Est. Patient 19:30:50 CDT Piotr Daley [facility] CPT-85104 Level 3 Est. Patient 22:06:44 CDT Katrina Rinaldi MD [facility] CPT-65126 Level 3 Est. Patient 14:20:00 CDT Piotr Daley [facility] CPT-07322 Level 3 Est. Patient 14:15:22 FORENSICS TEAM DIRECTOR Piotr Daley [facility] CPT-24455 Level 3 Est. Patient 20:19:57 FORENSICS TEAM DIRECTOR Piotr Daley [facility] CPT-38398 Level 3 Est. Patient 16:44:32 CDT Piotr Daley [facility] CPT-01255 Level 3 Est. Patient 08:48:46 FORENSICS TEAM DIRECTOR Piotr Daley [facility] CPT-12241 Level 3 Est. Patient 21:01:21 CDT Piotr Daley [facility] Procedures Code Procedure Name Date Entry Date Standard Description CPT-Cryo Cryotherapy 08:51:04 FORENSICS TEAM DIRECTOR CPT-G0439 Subsequent Annual Wellness Exam 08:51:04 FORENSICS TEAM DIRECTOR CPT-00162 Sacroiliac jt < 3V - XRAY USE ONLY 16:45:19 FORENSICS TEAM DIRECTOR 05/09 CPT-75603 LS spine comp w obliques - XRAY USE ONLY 14:52:26 FORENSICS TEAM DIRECTOR CPT-79359 Chest, 2 views 12:55:58 FORENSICS TEAM DIRECTOR CPT-G0439 Subsequent Annual Wellness Exam 10:34:52 FORENSICS TEAM DIRECTOR CPT-94051 BMP - LAB USE ONLY 17:19:11 FORENSICS TEAM DIRECTOR CPT-34535 PT/INR - LAB USE ONLY 17:19:10 FORENSICS TEAM DIRECTOR CPT-44470 Venipuncture Draw Fee 17:19:10 FORENSICS TEAM DIRECTOR CPT-94558 PT/INR - LAB USE ONLY 08:12:25 FORENSICS TEAM DIRECTOR CPT-56134 Venipuncture Draw Fee 08:12:24 FORENSICS TEAM DIRECTOR CPT-13482 Venipuncture Draw Fee 11:31:07 FORENSICS TEAM DIRECTOR CPT-51829 TPSA - LAB USE ONLY 11:31:07 FORENSICS TEAM DIRECTOR CPT-77190 PT/INR - LAB USE ONLY 11:31:07 FORENSICS TEAM DIRECTOR CPT-G0439 [facility] Annual Wellness Exam 09:59:29 FORENSICS TEAM DIRECTOR CPT-28448 Creatinine - LAB USE ONLY 14:37:55 FORENSICS TEAM DIRECTOR CPT-36102 PT/INR - LAB USE ONLY 14:37:55 FORENSICS TEAM DIRECTOR CPT-32591 Venipuncture Draw Fee 14:37:55 FORENSICS TEAM DIRECTOR CPT-71927 LS spine comp w obliques - XRAY USE ONLY 12:59:25 FORENSICS TEAM DIRECTOR CPT-47696 PT/INR - LAB USE ONLY 13:49:20 CDT CPT-39358 Venipuncture Draw Fee 13:49:19 CDT CPT-01783 PT/INR - LAB USE ONLY 15:48:49 CDT CPT-42515 Venipuncture Draw Fee 15:48:49 CDT CPT-03172 Venipuncture Draw Fee 11:31:59 CDT CPT-16076 PT/INR - LAB USE ONLY 11:31:59 CDT CPT-48181 Venipuncture Draw Fee 13:29:15 CDT CPT-11992 Thoracolumbar AP/Lat 15:19:19 FORENSICS TEAM DIRECTOR CPT-G0438 Initial Annual Wellness Exam 12:18:54 FORENSICS TEAM DIRECTOR CPT-07116 Knee 3V 09:57:38 CDT CPT-OV Office Visit 15:45:01 FORENSICS TEAM DIRECTOR CPT-97112 Abd compl w upright 17:10:25 CDT
--- OUTSIDE RECORDS SUMMARY | 2018-07-18 07:18 | XMS REPORT | Clinical Summary ---
Author Author Admin, [employer] Address Unknown Phone Unavailable Allergies, Adverse Reactions, [...] Coronary atherosclerosis of unspecified type of vessel, [place] or graft Back pain, thoracic region, left [...] THROMBOPHLEBITIS, LEG, 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 Inactive Sirisha Chen STANDARDS ANALYST DEEP VENOUS THROMBOPHLEBITIS, LEG, 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 Inactive Sirisha Chen STANDARDS ANALYST Seborrheic keratosis ICD-702.19 Inactive Sirisha Chen STANDARDS ANALYST Bronchitis-Acute ICD-466.0 Inactive Piotr Daley DO Leg pain, right ICD-729.5 Inactive Sirisha Chen STANDARDS ANALYST Right leg pain ICD-729.5 Inactive Sirisha Chen STANDARDS ANALYST Bronchitis-Acute ICD-466.0 Inactive Sirisha Chen STANDARDS ANALYST Knee pain, left ICD-719.46 Inactive Sirisha Chen STANDARDS ANALYST Actinic keratoses ICD-702.0 Inactive Sirisha Chen STANDARDS ANALYST Back pain, thoracic region, left ICD-724.1 Inactive Piotr Daley DO Thoracic back pain ICD-724.5 Inactive Sirisha Chen STANDARDS ANALYST Back pain lumbar ICD-724.2 Inactive Sirisha Chen STANDARDS ANALYST Insect bite ICD-919.4 Inactive Sirisha Chen STANDARDS ANALYST Pruritus ICD-698.9 Inactive Sirisha Chen STANDARDS ANALYST 04/09 Bronchitis-Acute ICD-466.0 Inactive Sirisha Chen STANDARDS ANALYST Dyspnea ICD-786.09 Inactive Sirisha Chen STANDARDS ANALYST 05/09 Pes anserinus bursitis, right ICD-726.61 Inactive Piotr Daley DO Medication List Medication Instructions Start Date Stop Date Generic Name [facility] Status Provider Patient Instruction TRIAMCINOLONE ACETONIDE 0.1 % EXTERNAL CREAM apply bid sparingly to rash 2017 TRIAMCINOLONE ACETONIDE 39346119335 No Longer Active Piotr Daley DO Active NYSTATIN 182939 UNIT/GM EXTERNAL CREAM Apply to rash 2-3 times a day and may repeat as needed NYSTATIN 23244023070 No Longer Active Piotr Daley DO Active WARFARIN SODIUM 4 MG ORAL TABLET 1 tablet by mouth daily WARFARIN SODIUM 85196214733 Active Sirisha Chen LPN Active MELOXICAM 15 MG ORAL TABLET 1 po q day for pain with food MELOXICAM 69094791725 Active Piotr Daley DO Active PREDNISONE 10 MG ORAL TABLET 1 tablet by mouth daily PREDNISONE 81100132011 No Longer Active Emelyn Norris Active TESSALON PERLES 100 MG ORAL CAPSULE 1-2 tablet by mouth 3 times daily 04/16 BENZONATATE 05247626427 No Longer Active Emelyn Norris Active PREDNISONE 20 MG ORAL TABLET two tabs by mouth today, then one tab by mouth days two and three PREDNISONE 13014184508 No Longer Active Piotr Daley DO Active CYCLOBENZAPRINE HCL 10 MG ORAL TABLET 1 tablet by mouth three times daily as needed for muscle spasm/pain CYCLOBENZAPRINE HCL 05546137267 Active Sirisha Chen LPN Active ZITHROMAX 250 MG ORAL TABLET Take two (2 ) tablets day one, then one (1) tablet a day for four (4) more days AZITHROMYCIN 62339490759 No Longer Active Piotr Daley DO Active PROAIR HFA 108 (90 BASE) MCG/ACT INHALATION AEROSOL SOLUTION 1-2 puffs four times a day as needed ALBUTEROL SULFATE 35096557037 No Longer Active Emelyn Norris Active DOXYCYCLINE HYCLATE 100 MG ORAL CAPSULE 1 cap by mouth BID x10 days DOXYCYCLINE HYCLATE 83576159144 No Longer Active Nella Harris APRN Active PREDNISONE 20 MG ORAL TABLET 2 tabs daily for 3 days, 1 tab daily for 3 days, 1/2 tab daily for 2 days PREDNISONE 51185274098 No Longer Active Matthew Rangel MD Active TRAMADOL HCL 50 MG ORAL TABLET 1 po tid with ES Tylenol TRAMADOL HCL 85562457567 No Longer Active Matthew Rangel MD Active GABAPENTIN 300 MG ORAL CAPSULE 1 po q hs for nerve pain GABAPENTIN 46880750367 No Longer Active Matthew Rangel MD Active PREDNISONE 20 MG ORAL TABLET 2 tablets today, then 1 tablet days 2 through 4 PREDNISONE 51086291060 No Longer Active Piotr Daley DO Active AZITHROMYCIN 250 MG ORAL TABLET 2 po qd x 1 day, then 1 po qd x 4 days 07/12 AZITHROMYCIN 71979046312 No Longer Active Piotr Daley DO Active IBUPROFEN 800 MG ORAL TABLET 1 tab every 8 hours as needed 07/12 IBUPROFEN 68761760403 No Longer Active Piotr Daley DO Active LOMOTIL 2.5-0.025 MG ORAL TABLET 1 to 2 four times a day as needed for diarrhea DIPHENOXYLATE-ATROPINE 80232862758 No Longer Active Piotr Daley DO Active WARFARIN SODIUM 4 MG ORAL TABLET 1 tab every evening WARFARIN SODIUM 56790028040 No Longer Active Piotr Daley DO Active PREDNISONE 20 MG ORAL TABLET 1 tablet twice daily for 2 days, then 1 tablet once daily for 2 days PREDNISONE 35842066319 No Longer Active Piotr Daley DO Active PROMETHAZINE HCL 25 MG ORAL TABLET 1 four times a day as needed for nausea/ vomiting PROMETHAZINE HCL 74245366622 No Longer Active Piotr Daley DO Active TUSSIONEX PENNKINETIC ER 10-8 MG/5ML ORAL SUSPENSION EXTENDED RELEASE 5ml po q12hr PRN Cough HYDROCOD POLST-CHLORPHEN POLST 35282510727 No Longer Active Piotr Daley DO Active AZITHROMYCIN 250 MG ORAL TABLET 2 po qd x 1 day, then 1 po qd x 4 days 10/13 AZITHROMYCIN 51664198355 No Longer Active Piotr Daley DO Active AZITHROMYCIN 250 MG ORAL TABLET 2 po qd x 1 day, then 1 po qd x 4 days 05/07 AZITHROMYCIN 09336322343 No Longer Active Piotr Daley DO Active LISINOPRIL-HYDROCHLOROTHIAZIDE 10-12.5 MG ORAL TABLET 1 tab by mouth daily LISINOPRIL-HYDROCHLOROTHIAZIDE 03734972034 Active Sirisha Gustavo STANDARDS ANALYST Active LISINOPRIL 10 MG ORAL TABLET 1/2-1 tab po every other day LISINOPRIL 63464948361 No Longer Active Piotr Daley DO Active VENTOLIN HFA 108 (90 Base) MCG/ACT INHALATION AEROSOL SOLUTION 2 puffs four times a day PRN cough ALBUTEROL SULFATE 33492707471 No Longer Active Piotr Daley DO Active NYSTATIN-TRIAMCINOLONE 473771-8.1 UNIT/GM-% EXTERNAL CREAM Apply to area BID NYSTATIN-TRIAMCINOLONE 78950143317 No Longer Active Alena Chavira STANDARDS ANALYST Active PHISOHEX 3 % LIQD Use Directed HEXACHLOROPHENE 54714022210 No Longer Active Sandra Lulu Active AZITHROMYCIN 250 MG ORAL TABLET 2 po qd x 1 day, then 1 po qd x 4 days 10/21 AZITHROMYCIN 76390497039 No Longer Active Katrina Rinaldi MD PhD Active AZITHROMYCIN 250 MG ORAL TABLET 2 po qd x 1 day, then 1 po qd x 4 days 10/16 AZITHROMYCIN 08918150234 No Longer Active Piotr Daley DO Active AZITHROMYCIN 500 MG INTRAVENOUS SOLUTION RECONSTITUTED 1 po q day AZITHROMYCIN 58127662397 No Longer Active Piotr Daley DO Active NYSTATIN-TRIAMCINOLONE 533272-5.1 UNIT/GM-% EXTERNAL CREAM apply bid NYSTATIN-TRIAMCINOLONE 88696596394 No Longer Active Piotr Daley DO Active IBUPROFEN 800 MG ORAL TABLET 1 po q 8 hours prn pain sparinly IBUPROFEN 62380499424 No Longer Active Piotr Daley DO Active VITAMIN D3 5000 UNIT ORAL CAPSULE 1 po daily CHOLECALCIFEROL 60612693198 Active Piotr Daley DO Active IBUPROFEN 800 MG ORAL TABLET 1 po q 8 hours prn pain sparinly IBUPROFEN 800 MG ORAL TABLET 661256 IBUPROFEN Inactive NYSTATIN-TRIAMCINOLONE 657480-9.1 UNIT/GM-% EXTERNAL CREAM apply bid NYSTATIN-TRIAMCINOLONE 897331-3.1 UNIT/GM-% EXTERNAL CREAM 4836178 NYSTATIN-TRIAMCINOLONE Inactive AZITHROMYCIN 500 MG INTRAVENOUS SOLUTION RECONSTITUTED 1 po q day AZITHROMYCIN 500 MG INTRAVENOUS SOLUTION RECONSTITUTED 60254330771 AZITHROMYCIN Inactive VENTOLIN HFA 108 (90 Base) MCG/ACT INHALATION AEROSOL SOLUTION 2 puffs four times a day PRN cough VENTOLIN HFA 108 (90 Base) MCG/ ACT INHALATION AEROSOL SOLUTION ALBUTEROL SULFATE Inactive LISINOPRIL 10 MG ORAL TABLET 1/2-1 tab po every other day LISINOPRIL 10 MG ORAL TABLET 902074 LISINOPRIL Inactive TUSSIONEX PENNKINETIC ER 10-8 MG/5ML ORAL SUSPENSION EXTENDED RELEASE 5ml po q12hr PRN Cough TUSSIONEX PENNKINETIC ER 10-8 MG/5ML ORAL SUSPENSION EXTENDED RELEASE HYDROCOD POLST-CHLORPHEN POLST Inactive PROMETHAZINE HCL 25 MG ORAL TABLET 1 four times a day as needed for nausea/ vomiting PROMETHAZINE HCL 25 MG ORAL TABLET 842331 PROMETHAZINE HCL Inactive PREDNISONE 20 MG ORAL TABLET 1 tablet twice daily for 2 days, then 1 tablet once daily for 2 days PREDNISONE 20 MG ORAL TABLET 992668 PREDNISONE Inactive WARFARIN SODIUM 4 MG ORAL TABLET 1 tab every evening WARFARIN SODIUM 4 MG ORAL TABLET 777958 WARFARIN SODIUM Inactive LOMOTIL 2.5-0.025 MG ORAL TABLET 1 to 2 four times a day as needed for diarrhea LOMOTIL 2.5-0.025 MG ORAL TABLET 7883508 DIPHENOXYLATE-ATROPINE Inactive IBUPROFEN 800 MG ORAL TABLET 1 tab every 8 hours as needed 07/12 IBUPROFEN 800 MG ORAL TABLET 583148 IBUPROFEN Inactive PREDNISONE 20 MG ORAL TABLET 2 tablets today, then 1 tablet days 2 through 4 PREDNISONE 20 MG ORAL TABLET 451415 PREDNISONE Inactive GABAPENTIN 300 MG ORAL CAPSULE 1 po q hs for nerve pain GABAPENTIN 300 MG ORAL CAPSULE 134186 GABAPENTIN Inactive TRAMADOL HCL 50 MG ORAL TABLET 1 po tid with ES Tylenol TRAMADOL HCL 50 MG ORAL TABLET 763610 TRAMADOL HCL Inactive PROAIR HFA 108 (90 BASE) MCG/ACT INHALATION AEROSOL SOLUTION 1-2 puffs four times a day as needed PROAIR HFA 108 (90 BASE) MCG/ACT INHALATION AEROSOL SOLUTION ALBUTEROL SULFATE Inactive PREDNISONE 20 MG ORAL TABLET two tabs by mouth today, then one tab by mouth days two and three PREDNISONE 20 MG ORAL TABLET 458852 PREDNISONE Inactive TESSALON PERLES 100 MG ORAL CAPSULE 1-2 tablet by mouth 3 times daily 04/16 TESSALON PERLES 100 MG ORAL CAPSULE 446839 BENZONATATE Inactive PREDNISONE 10 MG ORAL TABLET 1 tablet by mouth daily PREDNISONE 10 MG ORAL TABLET 907058 PREDNISONE Inactive NYSTATIN 350968 UNIT/GM EXTERNAL CREAM Apply to rash 2-3 times a day and may repeat as needed NYSTATIN 297648 UNIT/GM EXTERNAL CREAM 935647 NYSTATIN Inactive TRIAMCINOLONE ACETONIDE 0.1 % EXTERNAL CREAM apply bid sparingly to rash 2017 TRIAMCINOLONE ACETONIDE 0.1 % EXTERNAL CREAM 1879099 TRIAMCINOLONE ACETONIDE Inactive AZITHROMYCIN 250 MG ORAL TABLET 2 po qd x 1 day, then 1 po qd x 4 days 10/16 AZITHROMYCIN 250 MG ORAL TABLET 040970 AZITHROMYCIN Inactive AZITHROMYCIN 250 MG ORAL TABLET 2 po qd x 1 day, then 1 po qd x 4 days 10/21 AZITHROMYCIN 250 MG ORAL TABLET 669731 AZITHROMYCIN Inactive NYSTATIN-TRIAMCINOLONE 624239-8.1 UNIT/GM-% EXTERNAL CREAM Apply to area BID NYSTATIN-TRIAMCINOLONE 821645-4.1 UNIT/GM-% EXTERNAL CREAM 9342354 NYSTATIN-TRIAMCINOLONE Inactive AZITHROMYCIN 250 MG ORAL TABLET 2 po qd x 1 day, then 1 po qd x 4 days 05/07 AZITHROMYCIN 250 MG ORAL TABLET 210208 AZITHROMYCIN Inactive AZITHROMYCIN 250 MG ORAL TABLET 2 po qd x 1 day, then 1 po qd x 4 days 10/13 AZITHROMYCIN 250 MG ORAL TABLET 031367 AZITHROMYCIN Inactive AZITHROMYCIN 250 MG ORAL TABLET 2 po qd x 1 day, then 1 po qd x 4 days 07/12 AZITHROMYCIN 250 MG ORAL TABLET 733833 AZITHROMYCIN Inactive PREDNISONE 20 MG ORAL TABLET 2 tabs daily for 3 days, 1 tab daily for 3 days, 1/2 tab daily for 2 days PREDNISONE 20 MG ORAL TABLET 942988 PREDNISONE Inactive DOXYCYCLINE HYCLATE 100 MG ORAL CAPSULE 1 cap by mouth BID x10 days DOXYCYCLINE HYCLATE 100 MG ORAL CAPSULE 5792642 DOXYCYCLINE HYCLATE Inactive ZITHROMAX 250 MG ORAL TABLET Take two (2 ) tablets day one, then one (1) tablet a day for four (4) more days ZITHROMAX 250 MG ORAL TABLET 581887 AZITHROMYCIN Inactive Advance Directives Directive Description Start [...] Panel, CBC, Prostatic Specific Ag - Chemistry calcium, serum 8.8 mg/dL 8.5-10.1 bilirubin, serum, total 0.40 mg/dL 0.00-1.00 urea nitrogen, blood 13 mg/dL 7-18 creatinine, serum 0.89 mg/dL 0.60-1.30 Estimated Glomerular Filtration Rate (calc) 89 (?) mL/min/1.73m2 =OR > 60 mL/min alanine aminotransferase (SGPT), serum 25 U/L 12-78 aspartate aminotransferase (SGOT), serum 19 U/L 15-37 blood glucose 100 mg/dL 65-95 chloride, serum 102 mmol/L 98-107 potassium, serum 4.2 mmol/L 3.5-5.2 carbon dioxide, venous blood 30.9 mmol/L 21.0-32.0 sodium, serum 141 mmol/L 036-523 5578/12/17 prostate specific antigen 0.03 ng/mL 0.00-4.00 Lab [...] 0-29 Encounters Code Encounter Date Provider Facility CPT-25858 [id number] Vst-Est Level III 14:38:24 CONTAINERS SALES REPRESENTATIVE Piotr Daley [facility] CPT-05374 [id number] Vst-Est Level IV 08:51:04 CONTAINERS SALES REPRESENTATIVE Piotr Daley [facility] CPT-58907 [id number] Vst-Est Level III 14:29:05 CDT Piotr W [facility] CPT-09640 Level 3 Est. Patient 15:59:25 CONTAINERS SALES REPRESENTATIVE Piotr Daley [facility] CPT-18063 Level 3 Est. Patient 12:33:59 CONTAINERS SALES REPRESENTATIVE Piotr Daley [facility] CPT-00727 Level 3 Est. Patient 15:56:17 CONTAINERS SALES REPRESENTATIVE Piotr Daley [facility] CPT-42940 Level 3 Est. Patient 10:34:54 CONTAINERS SALES REPRESENTATIVE Piotr Daley [facility] CPT-94136 Level 3 Est. Patient 17:10:19 CDT Nella Harris APRN [facility] CPT-26435 Level 3 Est. Patient 10:48:17 CONTAINERS SALES REPRESENTATIVE Matthew Rangel MD [facility] CPT-68174 Level 4 Est. Patient 17:15:07 CONTAINERS SALES REPRESENTATIVE Piotr Daley [facility] CPT-83780 Level 3 Est. Patient 12:46:13 CONTAINERS SALES REPRESENTATIVE Piotr Daley [facility] CPT-91817 Level 3 Est. Patient 15:14:31 CONTAINERS SALES REPRESENTATIVE Piotr Daley [facility] CPT-55474 Level 3 Est. Patient 09:20:13 CONTAINERS SALES REPRESENTATIVE Piotr Katie Edi [facility] CPT-92194 Level 3 Est. Patient 09:49:40 CDT Piotr Daley [facility] CPT-70785 Level 3 Est. Patient 16:28:11 CDT Piotr Daley [facility] CPT-99299 Level 3 Est. Patient 12:41:58 CONTAINERS SALES REPRESENTATIVE Piotr Daley [facility] CPT-28453 Level 3 Est. Patient 09:21:24 CDT Piotr Wilson [facility] CPT-98480 Level 3 Est. Patient 09:21:11 CDT Piotr Wilson Edi [facility] CPT-44573 Level 3 Est. Patient 11:16:29 CONTAINERS SALES REPRESENTATIVE Piotr Wilson Edi [facility] CPT-61771 Level 3 Est. Patient 18:40:19 CONTAINERS SALES REPRESENTATIVE Piotr Daley [facility] CPT-17627 Level 3 Est. Patient 19:30:50 CDT Piotr Daley [facility] CPT-29546 Level 3 Est. Patient 22:06:44 CDT Katrina Rinaldi MD [facility] CPT-92983 Level 3 Est. Patient 14:20:00 CDT Piotr Daley [facility] CPT-66293 Level 3 Est. Patient 14:15:22 CONTAINERS SALES REPRESENTATIVE Piotr Daley [facility] CPT-81353 Level 3 Est. Patient 20:19:57 CONTAINERS SALES REPRESENTATIVE Piotr Daley [facility] CPT-87196 Level 3 Est. Patient 16:44:32 CDT Piotr Daley [facility] CPT-04435 Level 3 Est. Patient 08:48:46 CONTAINERS SALES REPRESENTATIVE Piotr Daley [facility] CPT-11886 Level 3 Est. Patient 21:01:21 CDT Piotr Daley [facility] Procedures Code Procedure Name Date Entry Date Standard Description CPT-Cryo Cryotherapy 08:51:04 CONTAINERS SALES REPRESENTATIVE CPT-G0439 Subsequent Annual Wellness Exam 08:51:04 CONTAINERS SALES REPRESENTATIVE CPT-73579 Sacroiliac jt < 3V - XRAY USE ONLY 16:45:19 CONTAINERS SALES REPRESENTATIVE 05/09 CPT-26089 LS spine comp w obliques - XRAY USE ONLY 14:52:26 CONTAINERS SALES REPRESENTATIVE CPT-52551 Chest, 2 views 12:55:58 CONTAINERS SALES REPRESENTATIVE CPT-G0439 Subsequent Annual Wellness Exam 10:34:52 CONTAINERS SALES REPRESENTATIVE CPT-57746 BMP - LAB USE ONLY 17:19:11 CONTAINERS SALES REPRESENTATIVE CPT-18064 PT/INR - LAB USE ONLY 17:19:10 CONTAINERS SALES REPRESENTATIVE CPT-30687 Venipuncture Draw Fee 17:19:10 CONTAINERS SALES REPRESENTATIVE CPT-51710 PT/INR - LAB USE ONLY 08:12:25 CONTAINERS SALES REPRESENTATIVE CPT-84597 Venipuncture Draw Fee 08:12:24 CONTAINERS SALES REPRESENTATIVE CPT-45591 Venipuncture Draw Fee 11:31:07 CONTAINERS SALES REPRESENTATIVE CPT-28218 TPSA - LAB USE ONLY 11:31:07 CONTAINERS SALES REPRESENTATIVE CPT-47200 PT/INR - LAB USE ONLY 11:31:07 CONTAINERS SALES REPRESENTATIVE CPT-G0439 [facility] Annual Wellness Exam 09:59:29 CONTAINERS SALES REPRESENTATIVE CPT-73591 Creatinine - LAB USE ONLY 14:37:55 CONTAINERS SALES REPRESENTATIVE CPT-50486 PT/INR - LAB USE ONLY 14:37:55 CONTAINERS SALES REPRESENTATIVE CPT-70326 Venipuncture Draw Fee 14:37:55 CONTAINERS SALES REPRESENTATIVE CPT-58944 LS spine comp w obliques - XRAY USE ONLY 12:59:25 CONTAINERS SALES REPRESENTATIVE CPT-67788 PT/INR - LAB USE ONLY 13:49:20 CDT CPT-24285 Venipuncture Draw Fee 13:49:19 CDT CPT-18429 PT/INR - LAB USE ONLY 15:48:49 CDT CPT-22256 Venipuncture Draw Fee 15:48:49 CDT CPT-93525 Venipuncture Draw Fee 11:31:59 CDT CPT-71684 PT/INR - LAB USE ONLY 11:31:59 CDT CPT-51704 Venipuncture Draw Fee 13:29:15 CDT CPT-90268 Thoracolumbar AP/Lat 15:19:19 CONTAINERS SALES REPRESENTATIVE CPT-G0438 Initial Annual Wellness Exam 12:18:54 CONTAINERS SALES REPRESENTATIVE CPT-62141 Knee 3V 09:57:38 CDT CPT-OV Office Visit 15:45:01 CONTAINERS SALES REPRESENTATIVE CPT-01631 Abd compl w upright 17:10:25 CDT
--- OUTSIDE RECORDS SUMMARY | 2018-07-18 07:19 | XMS REPORT | Clinical Summary ---
Author Author Admin, [employer] Address Unknown Phone Unavailable Allergies, Adverse Reactions, Alerts Allergy Name Reaction Description Start Date Severity Status Provider PENICILLINS Mild No Longer Active Piotr Daley DO PENICILLINS Critical No Longer Active Piotr Wilson Edi DO PENICILLINS UNK Inactive [place]tte Elder Conditions or Problems Problem Name Problem [...] Coronary atherosclerosis of unspecified type of vessel, [place] or graft Back pain, thoracic region, left [...] Body Mass Index 30.0-30.9 Adult Refinement Piotr Daely DO Body Mass Index 30.0-30.9, adult BMI [...] THROMBOPHLEBITIS, LEG, 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 Inactive Sirisha Chen DOCUMENT EXAMINER DEEP VENOUS THROMBOPHLEBITIS, LEG, 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 Inactive Sirisha Chen DOCUMENT EXAMINER Seborrheic keratosis ICD-702.19 Inactive Sirisha Chen DOCUMENT EXAMINER Bronchitis-Acute ICD-466.0 Inactive Piotr Daley DO Leg pain, right ICD-729.5 Inactive Sirisha Chen DOCUMENT EXAMINER Right leg pain ICD-729.5 Inactive Sirisha Chen DOCUMENT EXAMINER Bronchitis-Acute ICD-466.0 Inactive Sirisha Chen DOCUMENT EXAMINER Knee pain, left ICD-719.46 Inactive Sirisha Chen DOCUMENT EXAMINER Actinic keratoses ICD-702.0 Inactive Sirisha Chen DOCUMENT EXAMINER Back pain, thoracic region, left ICD-724.1 Inactive Piotr Daley DO Thoracic back pain ICD-724.5 Inactive Sirisha Chen DOCUMENT EXAMINER Back pain lumbar ICD-724.2 Inactive Sirisha Chen DOCUMENT EXAMINER Insect bite ICD-919.4 Inactive Sirisha Chen DOCUMENT EXAMINER Pruritus ICD-698.9 Inactive Sirisha Chen DOCUMENT EXAMINER 04/09 Bronchitis-Acute ICD-466.0 Inactive Sirisha Chen DOCUMENT EXAMINER Dyspnea ICD-786.09 Inactive Sirisha Chen DOCUMENT EXAMINER 05/09 Pes anserinus bursitis, right ICD-726.61 Inactive Piotr Daley DO Medication List Medication Instructions Start Date Stop Date Generic Name [facility] Status Provider Patient Instruction TRIAMCINOLONE ACETONIDE 0.1 % EXTERNAL CREAM apply bid sparingly to rash 2017 TRIAMCINOLONE ACETONIDE 56802126590 No Longer Active Piotr Daley DO Active NYSTATIN 616884 UNIT/GM EXTERNAL CREAM Apply to rash 2-3 times a day and may repeat as needed NYSTATIN 88149024627 No Longer Active Piotr Daley DO Active WARFARIN SODIUM 4 MG ORAL TABLET 1 tablet by mouth daily WARFARIN SODIUM 08663087662 Active Sirisha Chen LPN Active MELOXICAM 15 MG ORAL TABLET 1 po q day for pain with food MELOXICAM 24929852224 Active Piotr Daley DO Active PREDNISONE 10 MG ORAL TABLET 1 tablet by mouth daily PREDNISONE 83803524738 No Longer Active Emelyn Norris Active TESSALON PERLES 100 MG ORAL CAPSULE 1-2 tablet by mouth 3 times daily 04/16 BENZONATATE 27522846690 No Longer Active Emelyn Norris Active PREDNISONE 20 MG ORAL TABLET two tabs by mouth today, then one tab by mouth days two and three PREDNISONE 09682483197 No Longer Active Piotr Daley DO Active CYCLOBENZAPRINE HCL 10 MG ORAL TABLET 1 tablet by mouth three times daily as needed for muscle spasm/pain CYCLOBENZAPRINE HCL 41693906046 Active Sirisha Chen LPN Active ZITHROMAX 250 MG ORAL TABLET Take two (2 ) tablets day one, then one (1) tablet a day for four (4) more days AZITHROMYCIN 69704955282 No Longer Active Piotr Daley DO Active PROAIR HFA 108 (90 BASE) MCG/ACT INHALATION AEROSOL SOLUTION 1-2 puffs four times a day as needed ALBUTEROL SULFATE 42582964684 No Longer Active Emelyn Norris Active DOXYCYCLINE HYCLATE 100 MG ORAL CAPSULE 1 cap by mouth BID x10 days DOXYCYCLINE HYCLATE 46241681865 No Longer Active Nella Harris APRN Active PREDNISONE 20 MG ORAL TABLET 2 tabs daily for 3 days, 1 tab daily for 3 days, 1/2 tab daily for 2 days PREDNISONE 93036839476 No Longer Active Matthew Rangel MD Active TRAMADOL HCL 50 MG ORAL TABLET 1 po tid with ES Tylenol TRAMADOL HCL 57538321340 No Longer Active Matthew Rangel MD Active GABAPENTIN 300 MG ORAL CAPSULE 1 po q hs for nerve pain GABAPENTIN 82463693257 No Longer Active Matthew Rangel MD Active PREDNISONE 20 MG ORAL TABLET 2 tablets today, then 1 tablet days 2 through 4 PREDNISONE 92359992768 No Longer Active Piotr Daley DO Active AZITHROMYCIN 250 MG ORAL TABLET 2 po qd x 1 day, then 1 po qd x 4 days 07/12 AZITHROMYCIN 08629722254 No Longer Active Piotr Daley DO Active IBUPROFEN 800 MG ORAL TABLET 1 tab every 8 hours as needed 07/12 IBUPROFEN 05832587791 No Longer Active Piotr Daley DO Active LOMOTIL 2.5-0.025 MG ORAL TABLET 1 to 2 four times a day as needed for diarrhea DIPHENOXYLATE-ATROPINE 21357457186 No Longer Active Piotr Daley DO Active WARFARIN SODIUM 4 MG ORAL TABLET 1 tab every evening WARFARIN SODIUM 74236420972 No Longer Active Piotr Daley DO Active PREDNISONE 20 MG ORAL TABLET 1 tablet twice daily for 2 days, then 1 tablet once daily for 2 days PREDNISONE 93584095294 No Longer Active Piotr Daley DO Active PROMETHAZINE HCL 25 MG ORAL TABLET 1 four times a day as needed for nausea/ vomiting PROMETHAZINE HCL 82406803738 No Longer Active Piotr Daley DO Active TUSSIONEX PENNKINETIC ER 10-8 MG/5ML ORAL SUSPENSION EXTENDED RELEASE 5ml po q12hr PRN Cough HYDROCOD POLST-CHLORPHEN POLST 08342608234 No Longer Active Piotr Daley DO Active AZITHROMYCIN 250 MG ORAL TABLET 2 po qd x 1 day, then 1 po qd x 4 days 10/13 AZITHROMYCIN 02459727583 No Longer Active Piotr Daley DO Active AZITHROMYCIN 250 MG ORAL TABLET 2 po qd x 1 day, then 1 po qd x 4 days 05/07 AZITHROMYCIN 75173977886 No Longer Active Piotr Daley DO Active LISINOPRIL-HYDROCHLOROTHIAZIDE 10-12.5 MG ORAL TABLET 1 tab by mouth daily LISINOPRIL-HYDROCHLOROTHIAZIDE 44578824408 Active Sirisha Gustavo DOCUMENT EXAMINER Active LISINOPRIL 10 MG ORAL TABLET 1/2-1 tab po every other day LISINOPRIL 20629272866 No Longer Active Piotr Daley DO Active VENTOLIN HFA 108 (90 Base) MCG/ACT INHALATION AEROSOL SOLUTION 2 puffs four times a day PRN cough ALBUTEROL SULFATE 46266673870 No Longer Active Piotr Daley DO Active NYSTATIN-TRIAMCINOLONE 101583-4.1 UNIT/GM-% EXTERNAL CREAM Apply to area BID NYSTATIN-TRIAMCINOLONE 46512071245 No Longer Active Alena Chavira DOCUMENT EXAMINER Active PHISOHEX 3 % LIQD Use Directed HEXACHLOROPHENE 54127097242 No Longer Active Sandra [place] Active AZITHROMYCIN 250 MG ORAL TABLET 2 po qd x 1 day, then 1 po qd x 4 days 10/21 AZITHROMYCIN 11982488110 No Longer Active Katrina Rinaldi MD PhD Active AZITHROMYCIN 250 MG ORAL TABLET 2 po qd x 1 day, then 1 po qd x 4 days 10/16 AZITHROMYCIN 55699613133 No Longer Active Piotr Daley DO Active AZITHROMYCIN 500 MG INTRAVENOUS SOLUTION RECONSTITUTED 1 po q day AZITHROMYCIN 95590863437 No Longer Active Piotr Daley DO Active NYSTATIN-TRIAMCINOLONE 619309-8.1 UNIT/GM-% EXTERNAL CREAM apply bid NYSTATIN-TRIAMCINOLONE 90595138283 No Longer Active Piotr Daley DO Active IBUPROFEN 800 MG ORAL TABLET 1 po q 8 hours prn pain sparinly IBUPROFEN 05448600553 No Longer Active Piotr Daley DO Active VITAMIN D3 5000 UNIT ORAL CAPSULE 1 po daily CHOLECALCIFEROL 03863780805 Active Piotr Daley DO Active IBUPROFEN 800 MG ORAL TABLET 1 po q 8 hours prn pain sparinly IBUPROFEN 800 MG ORAL TABLET 780780 IBUPROFEN Inactive NYSTATIN-TRIAMCINOLONE 641673-9.1 UNIT/GM-% EXTERNAL CREAM apply bid NYSTATIN-TRIAMCINOLONE 706463-5.1 UNIT/GM-% EXTERNAL CREAM 3999658 NYSTATIN-TRIAMCINOLONE Inactive AZITHROMYCIN 500 MG INTRAVENOUS SOLUTION RECONSTITUTED 1 po q day AZITHROMYCIN 500 MG INTRAVENOUS SOLUTION RECONSTITUTED 59478002560 AZITHROMYCIN Inactive VENTOLIN HFA 108 (90 Base) MCG/ACT INHALATION AEROSOL SOLUTION 2 puffs four times a day PRN cough VENTOLIN HFA 108 (90 Base) MCG/ ACT INHALATION AEROSOL SOLUTION ALBUTEROL SULFATE Inactive LISINOPRIL 10 MG ORAL TABLET 1/2-1 tab po every other day LISINOPRIL 10 MG ORAL TABLET 947732 LISINOPRIL Inactive TUSSIONEX PENNKINETIC ER 10-8 MG/5ML ORAL SUSPENSION EXTENDED RELEASE 5ml po q12hr PRN Cough TUSSIONEX PENNKINETIC ER 10-8 MG/5ML ORAL SUSPENSION EXTENDED RELEASE HYDROCOD POLST-CHLORPHEN POLST Inactive PROMETHAZINE HCL 25 MG ORAL TABLET 1 four times a day as needed for nausea/ vomiting PROMETHAZINE HCL 25 MG ORAL TABLET 082276 PROMETHAZINE HCL Inactive PREDNISONE 20 MG ORAL TABLET 1 tablet twice daily for 2 days, then 1 tablet once daily for 2 days PREDNISONE 20 MG ORAL TABLET 531167 PREDNISONE Inactive WARFARIN SODIUM 4 MG ORAL TABLET 1 tab every evening WARFARIN SODIUM 4 MG ORAL TABLET 453986 WARFARIN SODIUM Inactive LOMOTIL 2.5-0.025 MG ORAL TABLET 1 to 2 four times a day as needed for diarrhea LOMOTIL 2.5-0.025 MG ORAL TABLET 8579205 DIPHENOXYLATE-ATROPINE Inactive IBUPROFEN 800 MG ORAL TABLET 1 tab every 8 hours as needed 07/12 IBUPROFEN 800 MG ORAL TABLET 943481 IBUPROFEN Inactive PREDNISONE 20 MG ORAL TABLET 2 tablets today, then 1 tablet days 2 through 4 PREDNISONE 20 MG ORAL TABLET 176557 PREDNISONE Inactive GABAPENTIN 300 MG ORAL CAPSULE 1 po q hs for nerve pain GABAPENTIN 300 MG ORAL CAPSULE 683180 GABAPENTIN Inactive TRAMADOL HCL 50 MG ORAL TABLET 1 po tid with ES Tylenol TRAMADOL HCL 50 MG ORAL TABLET 337318 TRAMADOL HCL Inactive PROAIR HFA 108 (90 BASE) MCG/ACT INHALATION AEROSOL SOLUTION 1-2 puffs four times a day as needed PROAIR HFA 108 (90 BASE) MCG/ACT INHALATION AEROSOL SOLUTION ALBUTEROL SULFATE Inactive PREDNISONE 20 MG ORAL TABLET two tabs by mouth today, then one tab by mouth days two and three PREDNISONE 20 MG ORAL TABLET 234615 PREDNISONE Inactive TESSALON PERLES 100 MG ORAL CAPSULE 1-2 tablet by mouth 3 times daily 04/16 TESSALON PERLES 100 MG ORAL CAPSULE 798776 BENZONATATE Inactive PREDNISONE 10 MG ORAL TABLET 1 tablet by mouth daily PREDNISONE 10 MG ORAL TABLET 444531 PREDNISONE Inactive NYSTATIN 028606 UNIT/GM EXTERNAL CREAM Apply to rash 2-3 times a day and may repeat as needed NYSTATIN 705983 UNIT/GM EXTERNAL CREAM 980676 NYSTATIN Inactive TRIAMCINOLONE ACETONIDE 0.1 % EXTERNAL CREAM apply bid sparingly to rash 2017 TRIAMCINOLONE ACETONIDE 0.1 % EXTERNAL CREAM 1886829 TRIAMCINOLONE ACETONIDE Inactive AZITHROMYCIN 250 MG ORAL TABLET 2 po qd x 1 day, then 1 po qd x 4 days 10/16 AZITHROMYCIN 250 MG ORAL TABLET 973827 AZITHROMYCIN Inactive AZITHROMYCIN 250 MG ORAL TABLET 2 po qd x 1 day, then 1 po qd x 4 days 10/21 AZITHROMYCIN 250 MG ORAL TABLET 861332 AZITHROMYCIN Inactive NYSTATIN-TRIAMCINOLONE 777758-5.1 UNIT/GM-% EXTERNAL CREAM Apply to area BID NYSTATIN-TRIAMCINOLONE 717673-6.1 UNIT/GM-% EXTERNAL CREAM 3095632 NYSTATIN-TRIAMCINOLONE Inactive AZITHROMYCIN 250 MG ORAL TABLET 2 po qd x 1 day, then 1 po qd x 4 days 05/07 AZITHROMYCIN 250 MG ORAL TABLET 366881 AZITHROMYCIN Inactive AZITHROMYCIN 250 MG ORAL TABLET 2 po qd x 1 day, then 1 po qd x 4 days 10/13 AZITHROMYCIN 250 MG ORAL TABLET 735429 AZITHROMYCIN Inactive AZITHROMYCIN 250 MG ORAL TABLET 2 po qd x 1 day, then 1 po qd x 4 days 07/12 AZITHROMYCIN 250 MG ORAL TABLET 199617 AZITHROMYCIN Inactive PREDNISONE 20 MG ORAL TABLET 2 tabs daily for 3 days, 1 tab daily for 3 days, 1/2 tab daily for 2 days PREDNISONE 20 MG ORAL TABLET 308855 PREDNISONE Inactive DOXYCYCLINE HYCLATE 100 MG ORAL CAPSULE 1 cap by mouth BID x10 days DOXYCYCLINE HYCLATE 100 MG ORAL CAPSULE 0264230 DOXYCYCLINE HYCLATE Inactive ZITHROMAX 250 MG ORAL TABLET Take two (2 ) tablets day one, then one (1) tablet a day for four (4) more days ZITHROMAX 250 MG ORAL TABLET 232407 AZITHROMYCIN Inactive Advance Directives Directive Description Start [...] temperature weight E&M 220.50 [lb_av] Weight Measured blood pressure, diastolic 76 mm[Hg] BP phan blood pressure, systolic 124 mm[Hg] BP sys height E&M 71 [in_us] Bdy height pulse rate E&M 78 /min Heart rate temperature E&M 97.2 [degF] Body temperature weight E&M 221 [lb_av] Weight Measured Diagnostic Results Date Name Value Unit Range Description Lab Report: Comp. Metabolic Panel, CBC, Prostatic Specific Ag - Chemistry sodium, serum 141 mmol/L 260-909 9516/12/17 carbon dioxide, venous blood 30.9 mmol/L 21.0-32.0 [...] 0-29 Encounters Code Encounter Date Provider Facility CPT-67185 [id number] Vst-Est Level III 14:38:24 PROGRAMMER ANALYST Piotr Wilsno Edi [facility] CPT-97972 [id number] Vst-Est Level IV 08:51:04 PROGRAMMER ANALYST Piotr Wilson Edi [facility] CPT-65542 [id number] Vst-Est Level III 14:29:05 CDT Piotr Wilson [facility] CPT-73114 Level 3 Est. Patient 15:59:25 PROGRAMMER ANALYST Piotr Wilson Edi [facility] CPT-86862 Level 3 Est. Patient 12:33:59 PROGRAMMER ANALYST Piotr Wilson [facility] CPT-38044 Level 3 Est. Patient 15:56:17 PROGRAMMER ANALYST Piotr Wilson [facility] CPT-57873 Level 3 Est. Patient 10:34:54 PROGRAMMER ANALYST Piotr Wilson [facility] CPT-41712 Level 3 Est. Patient 17:10:19 CDT Nella Harris APRN [facility] CPT-23675 Level 3 Est. Patient 10:48:17 PROGRAMMER ANALYST Matthew Rangel MD [facility] CPT-68394 Level 4 Est. Patient 17:15:07 PROGRAMMER ANALYST Piotr Wilson [facility] CPT-13351 Level 3 Est. Patient 12:46:13 PROGRAMMER ANALYST Piotr Wilson [facility] CPT-37198 Level 3 Est. Patient 15:14:31 PROGRAMMER ANALYST Piotr Daley [facility] CPT-25018 Level 3 Est. Patient 09:20:13 PROGRAMMER ANALYST Piotr Wilson [facility] CPT-74663 Level 3 Est. Patient 09:49:40 CDT Piotr Wilson [facility] CPT-87635 Level 3 Est. Patient 16:28:11 CDT Piotr Wilson [facility] CPT-31971 Level 3 Est. Patient 12:41:58 PROGRAMMER ANALYST Piotr Daley [facility] CPT-38229 Level 3 Est. Patient 09:21:24 CDT Piotr Daley [facility] CPT-47957 Level 3 Est. Patient 09:21:11 CDT Piotr Daley [facility] CPT-48282 Level 3 Est. Patient 11:16:29 PROGRAMMER ANALYST Piotr Daley [facility] CPT-27809 Level 3 Est. Patient 18:40:19 PROGRAMMER ANALYST Piotr Daley [facility] CPT-20750 Level 3 Est. Patient 19:30:50 CDT Piotr Daley [facility] CPT-41191 Level 3 Est. Patient 22:06:44 CDT Katrina Rinaldi MD [facility] CPT-10720 Level 3 Est. Patient 14:20:00 CDT Piotr Daley [facility] CPT-71252 Level 3 Est. Patient 14:15:22 PROGRAMMER ANALYST Piotr Daley [facility] CPT-23047 Level 3 Est. Patient 20:19:57 PROGRAMMER ANALYST Piotr Daley [facility] CPT-61678 Level 3 Est. Patient 16:44:32 CDT Piotr Daley [facility] CPT-54574 Level 3 Est. Patient 08:48:46 PROGRAMMER ANALYST Piotr Daley [facility] CPT-34827 Level 3 Est. Patient 21:01:21 CDT Piotr Katie Daley [facility] Procedures Code Procedure Name Date Entry Date Standard Description CPT-Cryo Cryotherapy 08:51:04 PROGRAMMER ANALYST CPT-G0439 [facility] Annual Wellness Exam 08:51:04 PROGRAMMER ANALYST CPT-13118 Sacroiliac jt < 3V - XRAY USE ONLY 16:45:19 PROGRAMMER ANALYST 05/09 CPT-29239 LS spine comp w obliques - XRAY USE ONLY 14:52:26 PROGRAMMER ANALYST CPT-95552 Chest, 2 views 12:55:58 PROGRAMMER ANALYST CPT-G0439 Subsequent Annual Wellness Exam 10:34:52 PROGRAMMER ANALYST CPT-15686 BMP - LAB USE ONLY 17:19:11 PROGRAMMER ANALYST CPT-52584 PT/INR - LAB USE ONLY 17:19:10 PROGRAMMER ANALYST CPT-90942 Venipuncture Draw Fee 17:19:10 PROGRAMMER ANALYST CPT-51081 PT/INR - LAB USE ONLY 08:12:25 PROGRAMMER ANALYST CPT-19081 Venipuncture Draw Fee 08:12:24 PROGRAMMER ANALYST CPT-86810 Venipuncture Draw Fee 11:31:07 PROGRAMMER ANALYST CPT-88880 TPSA - LAB USE ONLY 11:31:07 PROGRAMMER ANALYST CPT-14596 PT/INR - LAB USE ONLY 11:31:07 PROGRAMMER ANALYST CPT-G0439 Subsequent Annual Wellness Exam 09:59:29 PROGRAMMER ANALYST CPT-42247 Creatinine - LAB USE ONLY 14:37:55 PROGRAMMER ANALYST CPT-69192 PT/INR - LAB USE ONLY 14:37:55 PROGRAMMER ANALYST CPT-02190 Venipuncture Draw Fee 14:37:55 PROGRAMMER ANALYST CPT-56732 LS spine comp w obliques - XRAY USE ONLY 12:59:25 PROGRAMMER ANALYST CPT-55465 PT/INR - LAB USE ONLY 13:49:20 CDT CPT-14914 Venipuncture Draw Fee 13:49:19 CDT CPT-14204 PT/INR - LAB USE ONLY 15:48:49 CDT CPT-76987 Venipuncture Draw Fee 15:48:49 CDT CPT-81771 Venipuncture Draw Fee 11:31:59 CDT CPT-12411 PT/INR - LAB USE ONLY 11:31:59 CDT CPT-12732 Venipuncture Draw Fee 13:29:15 CDT CPT-67225 Thoracolumbar AP/Lat 15:19:19 PROGRAMMER ANALYST CPT-G0438 Initial Annual Wellness Exam 12:18:54 PROGRAMMER ANALYST CPT-93881 Knee 3V 09:57:38 CDT CPT-OV Office Visit 15:45:01 PROGRAMMER ANALYST CPT-72409 Abd compl w upright 17:10:25 CDT
--- OUTSIDE RECORDS SUMMARY | 2018-07-18 07:20 | XMS REPORT | Clinical Summary ---
Author Author Admin, [employer] Organization [employer] Address Unknown Phone Unavailable Allergies, Adverse Reactions, [...] neoplasm of prostate V10.46 Active Alina Meyers [employer] Personal history of malignant neoplasm of prostate Coronary artery disease 414.00 Active Alina Meyers APRN Coronary atherosclerosis of unspecified type of vessel, cabazon or graft Back pain, thoracic region, left [...] THROMBOPHLEBITIS, LEG, 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 Inactive Sirisha Chen GAS ENGINE OPERATOR DEEP VENOUS THROMBOPHLEBITIS, LEG, 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 Inactive Sirisha Chen GAS ENGINE OPERATOR Seborrheic keratosis ICD-702.19 Inactive Sirisha Chen GAS ENGINE OPERATOR Bronchitis-Acute ICD-466.0 Inactive Piotr Daley DO Leg pain, right ICD-729.5 Inactive Sirisha Chen GAS ENGINE OPERATOR Right leg pain ICD-729.5 Inactive Sirisha Chen GAS ENGINE OPERATOR Bronchitis-Acute ICD-466.0 Inactive Sirisha Chen GAS ENGINE OPERATOR Knee pain, left ICD-719.46 Inactive Sirisha Chen GAS ENGINE OPERATOR Actinic keratoses ICD-702.0 Inactive Sirisha Chen GAS ENGINE OPERATOR Back pain, thoracic region, left ICD-724.1 Inactive Piotr Daley DO Thoracic back pain ICD-724.5 Inactive Sirisha Chen GAS ENGINE OPERATOR Back pain lumbar ICD-724.2 Inactive Sirisha Chen GAS ENGINE OPERATOR Insect bite ICD-919.4 Inactive Sirisha Chen GAS ENGINE OPERATOR Pruritus ICD-698.9 Inactive Sirisha Chen GAS ENGINE OPERATOR 04/09 Bronchitis-Acute ICD-466.0 Inactive Sirisha Chen GAS ENGINE OPERATOR Dyspnea ICD-786.09 Inactive Sirisha Chen GAS ENGINE OPERATOR 05/09 Pes anserinus bursitis, right ICD-726.61 Inactive Piotr Dalye DO Medication List Medication Instructions Start Date Stop Date Generic Name [facility] Status Provider Patient Instruction TRIAMCINOLONE ACETONIDE 0.1 % EXTERNAL CREAM apply bid sparingly to rash 2017 TRIAMCINOLONE ACETONIDE 87724847088 No Longer Active Piotr Daley DO Active NYSTATIN 590453 UNIT/GM EXTERNAL CREAM Apply to rash 2-3 times a day and may repeat as needed NYSTATIN 08630079075 No Longer Active Piotr Daley DO Active WARFARIN SODIUM 4 MG ORAL TABLET 1 tablet by mouth daily WARFARIN SODIUM 92130045835 Active Sirisha Chen LPN Active MELOXICAM 15 MG ORAL TABLET 1 po q day for pain with food MELOXICAM 75113359687 Active Piotr Daley DO Active PREDNISONE 10 MG ORAL TABLET 1 tablet by mouth daily PREDNISONE 32094672182 No Longer Active Emelyn Norris Active TESSALON PERLES 100 MG ORAL CAPSULE 1-2 tablet by mouth 3 times daily 04/16 BENZONATATE 12572936441 No Longer Active Emelyn Norris Active PREDNISONE 20 MG ORAL TABLET two tabs by mouth today, then one tab by mouth days two and three PREDNISONE 64107602061 No Longer Active Piotr Daley DO Active CYCLOBENZAPRINE HCL 10 MG ORAL TABLET 1 tablet by mouth three times daily as needed for muscle spasm/pain CYCLOBENZAPRINE HCL 07817204866 Active Sirisha Chen LPN Active ZITHROMAX 250 MG ORAL TABLET Take two (2 ) tablets day one, then one (1) tablet a day for four (4) more days AZITHROMYCIN 73011571654 No Longer Active Piotr Daley DO Active PROAIR HFA 108 (90 BASE) MCG/ACT INHALATION AEROSOL SOLUTION 1-2 puffs four times a day as needed ALBUTEROL SULFATE 68648314618 No Longer Active Emelyn Norris Active DOXYCYCLINE HYCLATE 100 MG ORAL CAPSULE 1 cap by mouth BID x10 days DOXYCYCLINE HYCLATE 88463720982 No Longer Active Nella Harris APRN Active PREDNISONE 20 MG ORAL TABLET 2 tabs daily for 3 days, 1 tab daily for 3 days, 1/2 tab daily for 2 days PREDNISONE 08503017747 No Longer Active Matthew Rangel MD Active TRAMADOL HCL 50 MG ORAL TABLET 1 po tid with ES Tylenol TRAMADOL HCL 55555966747 No Longer Active Matthew Rangel MD Active GABAPENTIN 300 MG ORAL CAPSULE 1 po q hs for nerve pain GABAPENTIN 59404156105 No Longer Active Matthew Rangel MD Active PREDNISONE 20 MG ORAL TABLET 2 tablets today, then 1 tablet days 2 through 4 PREDNISONE 96661527476 No Longer Active Piotr Daley DO Active AZITHROMYCIN 250 MG ORAL TABLET 2 po qd x 1 day, then 1 po qd x 4 days 07/12 AZITHROMYCIN 70669884580 No Longer Active Piotr Daley DO Active IBUPROFEN 800 MG ORAL TABLET 1 tab every 8 hours as needed 07/12 IBUPROFEN 66980547125 No Longer Active Piotr Daley DO Active LOMOTIL 2.5-0.025 MG ORAL TABLET 1 to 2 four times a day as needed for diarrhea DIPHENOXYLATE-ATROPINE 01701429002 No Longer Active Piotr Daley DO Active WARFARIN SODIUM 4 MG ORAL TABLET 1 tab every evening WARFARIN SODIUM 17184761137 No Longer Active Piotr Dlaey DO Active PREDNISONE 20 MG ORAL TABLET 1 tablet twice daily for 2 days, then 1 tablet once daily for 2 days PREDNISONE 95484706640 No Longer Active Piotr Daley DO Active PROMETHAZINE HCL 25 MG ORAL TABLET 1 four times a day as needed for nausea/ vomiting PROMETHAZINE HCL 09051394743 No Longer Active Piotr Daley DO Active TUSSIONEX PENNKINETIC ER 10-8 MG/5ML ORAL SUSPENSION EXTENDED RELEASE 5ml po q12hr PRN Cough HYDROCOD POLST-CHLORPHEN POLST 67963984183 No Longer Active Piotr Daley DO Active AZITHROMYCIN 250 MG ORAL TABLET 2 po qd x 1 day, then 1 po qd x 4 days 10/13 AZITHROMYCIN 37333307510 No Longer Active Piotr Daley DO Active AZITHROMYCIN 250 MG ORAL TABLET 2 po qd x 1 day, then 1 po qd x 4 days 05/07 AZITHROMYCIN 88617656891 No Longer Active Piotr Daley DO Active LISINOPRIL-HYDROCHLOROTHIAZIDE 10-12.5 MG ORAL TABLET 1 tab by mouth daily LISINOPRIL-HYDROCHLOROTHIAZIDE 01689687336 Active Sirisha Gustavo GAS ENGINE OPERATOR Active LISINOPRIL 10 MG ORAL TABLET 1/2-1 tab po every other day LISINOPRIL 62008559701 No Longer Active Piotr Daley DO Active VENTOLIN HFA 108 (90 Base) MCG/ACT INHALATION AEROSOL SOLUTION 2 puffs four times a day PRN cough ALBUTEROL SULFATE 57464068832 No Longer Active Piotr Daley DO Active NYSTATIN-TRIAMCINOLONE 579720-1.1 UNIT/GM-% EXTERNAL CREAM Apply to area BID NYSTATIN-TRIAMCINOLONE 94255406784 No Longer Active Alena Chavira GAS ENGINE OPERATOR Active PHISOHEX 3 % LIQD Use Directed HEXACHLOROPHENE 88933003155 No Longer Active Sandra Southaven Active AZITHROMYCIN 250 MG ORAL TABLET 2 po qd x 1 day, then 1 po qd x 4 days 10/21 AZITHROMYCIN 68252817256 No Longer Active Katrina Rinaldi MD PhD Active AZITHROMYCIN 250 MG ORAL TABLET 2 po qd x 1 day, then 1 po qd x 4 days 10/16 AZITHROMYCIN 99976804829 No Longer Active Piotr Daley DO Active AZITHROMYCIN 500 MG INTRAVENOUS SOLUTION RECONSTITUTED 1 po q day AZITHROMYCIN 14065531942 No Longer Active Piotr Daley DO Active NYSTATIN-TRIAMCINOLONE 468894-5.1 UNIT/GM-% EXTERNAL CREAM apply bid NYSTATIN-TRIAMCINOLONE 00694040327 No Longer Active Piotr Daley DO Active IBUPROFEN 800 MG ORAL TABLET 1 po q 8 hours prn pain sparinly IBUPROFEN 43125200293 No Longer Active Piotr Daley DO Active VITAMIN D3 5000 UNIT ORAL CAPSULE 1 po daily CHOLECALCIFEROL 48242263872 Active Piotr Daley DO Active IBUPROFEN 800 MG ORAL TABLET 1 po q 8 hours prn pain sparinly IBUPROFEN 800 MG ORAL TABLET 876705 IBUPROFEN Inactive NYSTATIN-TRIAMCINOLONE 637209-2.1 UNIT/GM-% EXTERNAL CREAM apply bid NYSTATIN-TRIAMCINOLONE 817248-4.1 UNIT/GM-% EXTERNAL CREAM 4428008 NYSTATIN-TRIAMCINOLONE Inactive AZITHROMYCIN 500 MG INTRAVENOUS SOLUTION RECONSTITUTED 1 po q day AZITHROMYCIN 500 MG INTRAVENOUS SOLUTION RECONSTITUTED 53110766796 AZITHROMYCIN Inactive VENTOLIN HFA 108 (90 Base) MCG/ACT INHALATION AEROSOL SOLUTION 2 puffs four times a day PRN cough VENTOLIN HFA 108 (90 Base) MCG/ ACT INHALATION AEROSOL SOLUTION ALBUTEROL SULFATE Inactive LISINOPRIL 10 MG ORAL TABLET 1/2-1 tab po every other day LISINOPRIL 10 MG ORAL TABLET 657142 LISINOPRIL Inactive TUSSIONEX PENNKINETIC ER 10-8 MG/5ML ORAL SUSPENSION EXTENDED RELEASE 5ml po q12hr PRN Cough TUSSIONEX PENNKINETIC ER 10-8 MG/5ML ORAL SUSPENSION EXTENDED RELEASE HYDROCOD POLST-CHLORPHEN POLST Inactive PROMETHAZINE HCL 25 MG ORAL TABLET 1 four times a day as needed for nausea/ vomiting PROMETHAZINE HCL 25 MG ORAL TABLET 140067 PROMETHAZINE HCL Inactive PREDNISONE 20 MG ORAL TABLET 1 tablet twice daily for 2 days, then 1 tablet once daily for 2 days PREDNISONE 20 MG ORAL TABLET 324709 PREDNISONE Inactive WARFARIN SODIUM 4 MG ORAL TABLET 1 tab every evening WARFARIN SODIUM 4 MG ORAL TABLET 350975 WARFARIN SODIUM Inactive LOMOTIL 2.5-0.025 MG ORAL TABLET 1 to 2 four times a day as needed for diarrhea LOMOTIL 2.5-0.025 MG ORAL TABLET 4012054 DIPHENOXYLATE-ATROPINE Inactive IBUPROFEN 800 MG ORAL TABLET 1 tab every 8 hours as needed 07/12 IBUPROFEN 800 MG ORAL TABLET 801094 IBUPROFEN Inactive PREDNISONE 20 MG ORAL TABLET 2 tablets today, then 1 tablet days 2 through 4 PREDNISONE 20 MG ORAL TABLET 515095 PREDNISONE Inactive GABAPENTIN 300 MG ORAL CAPSULE 1 po q hs for nerve pain GABAPENTIN 300 MG ORAL CAPSULE 950690 GABAPENTIN Inactive TRAMADOL HCL 50 MG ORAL TABLET 1 po tid with ES Tylenol TRAMADOL HCL 50 MG ORAL TABLET 608296 TRAMADOL HCL Inactive PROAIR HFA 108 (90 BASE) MCG/ACT INHALATION AEROSOL SOLUTION 1-2 puffs four times a day as needed PROAIR HFA 108 (90 BASE) MCG/ACT INHALATION AEROSOL SOLUTION ALBUTEROL SULFATE Inactive PREDNISONE 20 MG ORAL TABLET two tabs by mouth today, then one tab by mouth days two and three PREDNISONE 20 MG ORAL TABLET 855878 PREDNISONE Inactive TESSALON PERLES 100 MG ORAL CAPSULE 1-2 tablet by mouth 3 times daily 04/16 TESSALON PERLES 100 MG ORAL CAPSULE 623007 BENZONATATE Inactive PREDNISONE 10 MG ORAL TABLET 1 tablet by mouth daily PREDNISONE 10 MG ORAL TABLET 329914 PREDNISONE Inactive NYSTATIN 283131 UNIT/GM EXTERNAL CREAM Apply to rash 2-3 times a day and may repeat as needed NYSTATIN 951034 UNIT/GM EXTERNAL CREAM 230532 NYSTATIN Inactive TRIAMCINOLONE ACETONIDE 0.1 % EXTERNAL CREAM apply bid sparingly to rash 2017 TRIAMCINOLONE ACETONIDE 0.1 % EXTERNAL CREAM 1716575 TRIAMCINOLONE ACETONIDE Inactive AZITHROMYCIN 250 MG ORAL TABLET 2 po qd x 1 day, then 1 po qd x 4 days 10/16 AZITHROMYCIN 250 MG ORAL TABLET 419098 AZITHROMYCIN Inactive AZITHROMYCIN 250 MG ORAL TABLET 2 po qd x 1 day, then 1 po qd x 4 days 10/21 AZITHROMYCIN 250 MG ORAL TABLET 339885 AZITHROMYCIN Inactive NYSTATIN-TRIAMCINOLONE 545781-2.1 UNIT/GM-% EXTERNAL CREAM Apply to area BID NYSTATIN-TRIAMCINOLONE 279302-2.1 UNIT/GM-% EXTERNAL CREAM 8257866 NYSTATIN-TRIAMCINOLONE Inactive AZITHROMYCIN 250 MG ORAL TABLET 2 po qd x 1 day, then 1 po qd x 4 days 05/07 AZITHROMYCIN 250 MG ORAL TABLET 864872 AZITHROMYCIN Inactive AZITHROMYCIN 250 MG ORAL TABLET 2 po qd x 1 day, then 1 po qd x 4 days 10/13 AZITHROMYCIN 250 MG ORAL TABLET 749964 AZITHROMYCIN Inactive AZITHROMYCIN 250 MG ORAL TABLET 2 po qd x 1 day, then 1 po qd x 4 days 07/12 AZITHROMYCIN 250 MG ORAL TABLET 430912 AZITHROMYCIN Inactive PREDNISONE 20 MG ORAL TABLET 2 tabs daily for 3 days, 1 tab daily for 3 days, 1/2 tab daily for 2 days PREDNISONE 20 MG ORAL TABLET 361286 PREDNISONE Inactive DOXYCYCLINE HYCLATE 100 MG ORAL CAPSULE 1 cap by mouth BID x10 days DOXYCYCLINE HYCLATE 100 MG ORAL CAPSULE 5119537 DOXYCYCLINE HYCLATE Inactive ZITHROMAX 250 MG ORAL TABLET Take two (2 ) tablets day one, then one (1) tablet a day for four (4) more days ZITHROMAX 250 MG ORAL TABLET 434828 AZITHROMYCIN Inactive Advance Directives Directive Description Start [...] Ag - Chemistry sodium, serum 141 mmol/L 768-263 4255/12/17 carbon dioxide, venous blood 30.9 mmol/L 21.0-32.0 [...] 0-29 Encounters Code Encounter Date Provider Facility CPT-19794 [id number] Vst-Est Level III 14:38:24 [employer] Piotr Wilson [facility] CPT-46956 06245-Exs Vst-Est Level IV 08:51:04 [employer] Piotr Wilson [facility] CPT-32258 [id number] Vst-Est Level III 14:29:05 CDT Piotr Wilson [facility] CPT-86273 Level 3 Est. Patient 15:59:25 [employer]CH [employer] Piotr Daley [facility] CPT-60718 Level 3 Est. Patient 12:33:59 [employer]CH [employer] Piotr Wilson [facility] CPT-14601 Level 3 Est. Patient 15:56:17 [employer]CH [employer]OL [employer] Piotr Wilson [facility] CPT-02423 Level 3 Est. Patient 10:34:54 [employer] Piotr Wilson [facility] CPT-82992 Level 3 Est. Patient 17:10:19 CDT Nella Harris APRN [facility] CPT-85910 Level 3 Est. Patient 10:48:17 [employer] Matthew Rangel MD [facility] CPT-12832 Level 4 Est. Patient 17:15:07 [employer] Piotr Wilson [facility] CPT-49110 Level 3 Est. Patient 12:46:13 [employer]CH [employer] Piotr Wilson [facility] CPT-47789 Level 3 Est. Patient 15:14:31 B[employer]CH [employer]OL [employer] Piotr Daley [facility] CPT-02717 Level 3 Est. Patient 09:20:13 BENCH [employer]OL [employer] Piotr Wilson [facility] CPT-45300 Level 3 Est. Patient 09:49:40 CDT Piotr Wilson [facility] CPT-01096 Level 3 Est. Patient 16:28:11 CDT Piotr Wilson [facility] CPT-74610 Level 3 Est. Patient 12:41:58 [employer]CH [employer]OL [employer] Piotr Daley [facility] CPT-72200 Level 3 Est. Patient 09:21:24 CDT Piotr Daley [facility] CPT-79899 Level 3 Est. Patient 09:21:11 CDT Piotr Dlaey [facility] CPT-56454 Level 3 Est. Patient 11:16:29 [employer]CH [employer]OL [employer] Piotr Daley [facility] CPT-29739 Level 3 Est. Patient 18:40:19 [employer]CH [employer]OL [employer] Piotr Daley [facility] CPT-54504 Level 3 Est. Patient 19:30:50 CDT Piotr Daley [facility] CPT-60282 Level 3 Est. Patient 22:06:44 CDT Katrina Rinaldi MD [facility] CPT-71439 Level 3 Est. Patient 14:20:00 CDT Piotr Daley [facility] CPT-13527 Level 3 Est. Patient 14:15:22 [employer]CH [employer]OL [employer] Piotr Daley [facility] CPT-12976 Level 3 Est. Patient 20:19:57 [employer] Piotr Daley [facility] CPT-80485 Level 3 Est. Patient 16:44:32 CDT Piotr Daley [facility] CPT-37702 Level 3 Est. Patient 08:48:46 [employer] Piotr Daley [facility] CPT-80566 Level 3 Est. Patient 21:01:21 CDT Piotr Daley [facility] Procedures Code Procedure Name Date Entry Date Standard Description CPT-Cryo Cryotherapy 08:51:04 [employer]CH [employer] CPT-G0439 [facility] Annual Wellness Exam 08:51:04 [employer] CPT-96134 Sacroiliac jt < 3V - XRAY USE ONLY 16:45:19 [employer] 05/09 CPT-11182 LS spine comp w obliques - XRAY USE ONLY 14:52:26 [employer] CPT-63309 Chest, 2 views 12:55:58 [employer] CPT-G0439 Subsequent Annual Wellness Exam 10:34:52 [employer] CPT-20406 BMP - LAB USE ONLY 17:19:11 [employer] CPT-78694 PT/INR - LAB USE ONLY 17:19:10 [employer] CPT-73487 Venipuncture Draw Fee 17:19:10 [employer] CPT-29361 PT/INR - LAB USE ONLY 08:12:25 [employer] CPT-91581 Venipuncture Draw Fee 08:12:24 [employer] CPT-42664 Venipuncture Draw Fee 11:31:07 [employer] CPT-75996 TPSA - LAB USE ONLY 11:31:07 [employer]CH [employer] CPT-84269 PT/INR - LAB USE ONLY 11:31:07 [employer] CPT-G0439 Subsequent Annual Wellness Exam 09:59:29 [employer]CH [employer] CPT-98067 Creatinine - LAB USE ONLY 14:37:55 [employer] CPT-73555 PT/INR - LAB USE ONLY 14:37:55 [employer] CPT-23594 Venipuncture Draw Fee 14:37:55 [employer] CPT-95626 LS spine comp w obliques - XRAY USE ONLY 12:59:25 [employer] CPT-42873 PT/INR - LAB USE ONLY 13:49:20 CDT CPT-84023 Venipuncture Draw Fee 13:49:19 CDT CPT-45811 PT/INR - LAB USE ONLY 15:48:49 CDT CPT-72297 Venipuncture Draw Fee 15:48:49 CDT CPT-87295 Venipuncture Draw Fee 11:31:59 CDT CPT-55002 PT/INR - LAB USE ONLY 11:31:59 CDT CPT-89197 Venipuncture Draw Fee 13:29:15 CDT CPT-95349 Thoracolumbar AP/Lat 15:19:19 [employer] CPT-G0438 Initial Annual Wellness Exam 12:18:54 [employer] CPT-20390 Knee 3V 09:57:38 CDT CPT-OV Office Visit 15:45:01 [employer] CPT-58999 Abd compl w upright 17:10:25 CDT
--- OUTSIDE RECORDS SUMMARY | 2018-07-18 07:21 | XMS REPORT | Clinical Summary ---
Author Author Admin, [employer] Address Unknown Phone Unavailable Allergies, Adverse Reactions, [...] neoplasm of prostate V10.46 Active Alina Meyers TAVERN KEEPER Personal history of malignant neoplasm of prostate Coronary artery disease 414.00 Active Alina Meyers APRN Coronary atherosclerosis of unspecified type of vessel, yocha dehe or graft Back pain, thoracic region, left 724.1 Inactive Piotr Katie Edi DO Pain in thoracic spine Thoracic back pain 724.5 Resolved Piotr Katie Edi DO Backache, unspecified Back pain lumbar 724.2 Resolved Piotr aKtie Edi DO Lumbago Peripheral neuropathy, lower extremity, [...] THROMBOPHLEBITIS, LEG, 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 Inactive Sirisha Chen SENSITIZER DEEP VENOUS THROMBOPHLEBITIS, LEG, 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 Inactive Sirisha Chen SENSITIZER Seborrheic keratosis ICD-702.19 Inactive Sirisha Chen SENSITIZER Bronchitis-Acute ICD-466.0 Inactive Piotr Daley DO Leg pain, right ICD-729.5 Inactive Sirisha Chen SENSITIZER Right leg pain ICD-729.5 Inactive Sirisha Chen SENSITIZER Bronchitis-Acute ICD-466.0 Inactive Sirisha Chen SENSITIZER Knee pain, left ICD-719.46 Inactive Sirisha Chen SENSITIZER Actinic keratoses ICD-702.0 Inactive Sirisha Chen SENSITIZER Back pain, thoracic region, left ICD-724.1 Inactive Piotr Daley DO Thoracic back pain ICD-724.5 Inactive Sirisha Chen SENSITIZER Back pain lumbar ICD-724.2 Inactive Sirisha Chen SENSITIZER Insect bite ICD-919.4 Inactive Sirisha Chen SENSITIZER Pruritus ICD-698.9 Inactive Sirisha Chen SENSITIZER 04/09 Bronchitis-Acute ICD-466.0 Inactive Sirisha Chen SENSITIZER Dyspnea ICD-786.09 Inactive Sirisha Chen SENSITIZER 05/09 Pes anserinus bursitis, right ICD-726.61 Inactive Piotr Daley DO Medication List Medication Instructions Start Date Stop Date Generic Name [facility] Status Provider Patient Instruction TRIAMCINOLONE ACETONIDE 0.1 % EXTERNAL CREAM apply bid sparingly to rash 2017 TRIAMCINOLONE ACETONIDE 56979557679 No Longer Active Piotr Daley DO Active NYSTATIN 015411 UNIT/GM EXTERNAL CREAM Apply to rash 2-3 times a day and may repeat as needed NYSTATIN 03323067580 No Longer Active Piotr Daley DO Active WARFARIN SODIUM 4 MG ORAL TABLET 1 tablet by mouth daily WARFARIN SODIUM 48049593233 Active Sirisha Chen LPN Active MELOXICAM 15 MG ORAL TABLET 1 po q day for pain with food MELOXICAM 30350808910 Active Piotr Daley DO Active PREDNISONE 10 MG ORAL TABLET 1 tablet by mouth daily PREDNISONE 95882156338 No Longer Active Emelyn Norris Active TESSALON PERLES 100 MG ORAL CAPSULE 1-2 tablet by mouth 3 times daily 04/16 BENZONATATE 17700483673 No Longer Active Emelyn Norris Active PREDNISONE 20 MG ORAL TABLET two tabs by mouth today, then one tab by mouth days two and three PREDNISONE 98977214014 No Longer Active Piotr Daley DO Active CYCLOBENZAPRINE HCL 10 MG ORAL TABLET 1 tablet by mouth three times daily as needed for muscle spasm/pain CYCLOBENZAPRINE HCL 21478263437 Active Sirisha Chen LPN Active ZITHROMAX 250 MG ORAL TABLET Take two (2 ) tablets day one, then one (1) tablet a day for four (4) more days AZITHROMYCIN 17602517693 No Longer Active Piotr Daley DO Active PROAIR HFA 108 (90 BASE) MCG/ACT INHALATION AEROSOL SOLUTION 1-2 puffs four times a day as needed ALBUTEROL SULFATE 66591125338 No Longer Active Emelyn Norris Active DOXYCYCLINE HYCLATE 100 MG ORAL CAPSULE 1 cap by mouth BID x10 days DOXYCYCLINE HYCLATE 78318887985 No Longer Active Nella Harris APRN Active PREDNISONE 20 MG ORAL TABLET 2 tabs daily for 3 days, 1 tab daily for 3 days, 1/2 tab daily for 2 days PREDNISONE 77039902165 No Longer Active Matthew Rangel MD Active TRAMADOL HCL 50 MG ORAL TABLET 1 po tid with ES Tylenol TRAMADOL HCL 78890914507 No Longer Active Matthew Rangel MD Active GABAPENTIN 300 MG ORAL CAPSULE 1 po q hs for nerve pain GABAPENTIN 88575193097 No Longer Active Matthew Rangel MD Active PREDNISONE 20 MG ORAL TABLET 2 tablets today, then 1 tablet days 2 through 4 PREDNISONE 51945216031 No Longer Active Piotr Daley DO Active AZITHROMYCIN 250 MG ORAL TABLET 2 po qd x 1 day, then 1 po qd x 4 days 07/12 AZITHROMYCIN 36106730877 No Longer Active Piotr Daley DO Active IBUPROFEN 800 MG ORAL TABLET 1 tab every 8 hours as needed 07/12 IBUPROFEN 98060294372 No Longer Active Piotr Daley DO Active LOMOTIL 2.5-0.025 MG ORAL TABLET 1 to 2 four times a day as needed for diarrhea DIPHENOXYLATE-ATROPINE 20684142139 No Longer Active Piotr Daley DO Active WARFARIN SODIUM 4 MG ORAL TABLET 1 tab every evening WARFARIN SODIUM 21254469584 No Longer Active Piotr Daley DO Active PREDNISONE 20 MG ORAL TABLET 1 tablet twice daily for 2 days, then 1 tablet once daily for 2 days PREDNISONE 32851657263 No Longer Active Piotr Daley DO Active PROMETHAZINE HCL 25 MG ORAL TABLET 1 four times a day as needed for nausea/ vomiting PROMETHAZINE HCL 22449130164 No Longer Active Piotr Daley DO Active TUSSIONEX PENNKINETIC ER 10-8 MG/5ML ORAL SUSPENSION EXTENDED RELEASE 5ml po q12hr PRN Cough HYDROCOD POLST-CHLORPHEN POLST 64178762623 No Longer Active Piotr Daley DO Active AZITHROMYCIN 250 MG ORAL TABLET 2 po qd x 1 day, then 1 po qd x 4 days 10/13 AZITHROMYCIN 41772341592 No Longer Active Piotr Daley DO Active AZITHROMYCIN 250 MG ORAL TABLET 2 po qd x 1 day, then 1 po qd x 4 days 05/07 AZITHROMYCIN 76410041815 No Longer Active Piotr Daley DO Active LISINOPRIL-HYDROCHLOROTHIAZIDE 10-12.5 MG ORAL TABLET 1 tab by mouth daily LISINOPRIL-HYDROCHLOROTHIAZIDE 92201877221 Active Sirisha Gustavo SENSITIZER Active LISINOPRIL 10 MG ORAL TABLET 1/2-1 tab po every other day LISINOPRIL 51067847602 No Longer Active Piotr Daley DO Active VENTOLIN HFA 108 (90 Base) MCG/ACT INHALATION AEROSOL SOLUTION 2 puffs four times a day PRN cough ALBUTEROL SULFATE 21435665134 No Longer Active Piotr Daley DO Active NYSTATIN-TRIAMCINOLONE 642841-2.1 UNIT/GM-% EXTERNAL CREAM Apply to area BID NYSTATIN-TRIAMCINOLONE 66007169700 No Longer Active Alena Chavira SENSITIZER Active PHISOHEX 3 % LIQD Use Directed HEXACHLOROPHENE 93486984225 No Longer Active Sandra Kanab Active AZITHROMYCIN 250 MG ORAL TABLET 2 po qd x 1 day, then 1 po qd x 4 days 10/21 AZITHROMYCIN 88963753173 No Longer Active Katrina Rinaldi MD PhD Active AZITHROMYCIN 250 MG ORAL TABLET 2 po qd x 1 day, then 1 po qd x 4 days 10/16 AZITHROMYCIN 33379006551 No Longer Active Piotr Daley DO Active AZITHROMYCIN 500 MG INTRAVENOUS SOLUTION RECONSTITUTED 1 po q day AZITHROMYCIN 71673847332 No Longer Active Poitr Daley DO Active NYSTATIN-TRIAMCINOLONE 375311-7.1 UNIT/GM-% EXTERNAL CREAM apply bid NYSTATIN-TRIAMCINOLONE 16122039870 No Longer Active Piotr Daley DO Active IBUPROFEN 800 MG ORAL TABLET 1 po q 8 hours prn pain sparinly IBUPROFEN 68070413227 No Longer Active Piotr Daley DO Active VITAMIN D3 5000 UNIT ORAL CAPSULE 1 po daily CHOLECALCIFEROL 74758958691 Active Piotr Daley DO Active IBUPROFEN 800 MG ORAL TABLET 1 po q 8 hours prn pain sparinly IBUPROFEN 800 MG ORAL TABLET 388766 IBUPROFEN Inactive NYSTATIN-TRIAMCINOLONE 737649-5.1 UNIT/GM-% EXTERNAL CREAM apply bid NYSTATIN-TRIAMCINOLONE 996719-5.1 UNIT/GM-% EXTERNAL CREAM 8435704 NYSTATIN-TRIAMCINOLONE Inactive AZITHROMYCIN 500 MG INTRAVENOUS SOLUTION RECONSTITUTED 1 po q day AZITHROMYCIN 500 MG INTRAVENOUS SOLUTION RECONSTITUTED 48061462124 AZITHROMYCIN Inactive VENTOLIN HFA 108 (90 Base) MCG/ACT INHALATION AEROSOL SOLUTION 2 puffs four times a day PRN cough VENTOLIN HFA 108 (90 Base) MCG/ ACT INHALATION AEROSOL SOLUTION ALBUTEROL SULFATE Inactive LISINOPRIL 10 MG ORAL TABLET 1/2-1 tab po every other day LISINOPRIL 10 MG ORAL TABLET 979926 LISINOPRIL Inactive TUSSIONEX PENNKINETIC ER 10-8 MG/5ML ORAL SUSPENSION EXTENDED RELEASE 5ml po q12hr PRN Cough TUSSIONEX PENNKINETIC ER 10-8 MG/5ML ORAL SUSPENSION EXTENDED RELEASE HYDROCOD POLST-CHLORPHEN POLST Inactive PROMETHAZINE HCL 25 MG ORAL TABLET 1 four times a day as needed for nausea/ vomiting PROMETHAZINE HCL 25 MG ORAL TABLET 113139 PROMETHAZINE HCL Inactive PREDNISONE 20 MG ORAL TABLET 1 tablet twice daily for 2 days, then 1 tablet once daily for 2 days PREDNISONE 20 MG ORAL TABLET 605981 PREDNISONE Inactive WARFARIN SODIUM 4 MG ORAL TABLET 1 tab every evening WARFARIN SODIUM 4 MG ORAL TABLET 485376 WARFARIN SODIUM Inactive LOMOTIL 2.5-0.025 MG ORAL TABLET 1 to 2 four times a day as needed for diarrhea LOMOTIL 2.5-0.025 MG ORAL TABLET 4346356 DIPHENOXYLATE-ATROPINE Inactive IBUPROFEN 800 MG ORAL TABLET 1 tab every 8 hours as needed 07/12 IBUPROFEN 800 MG ORAL TABLET 391397 IBUPROFEN Inactive PREDNISONE 20 MG ORAL TABLET 2 tablets today, then 1 tablet days 2 through 4 PREDNISONE 20 MG ORAL TABLET 646686 PREDNISONE Inactive GABAPENTIN 300 MG ORAL CAPSULE 1 po q hs for nerve pain GABAPENTIN 300 MG ORAL CAPSULE 796472 GABAPENTIN Inactive TRAMADOL HCL 50 MG ORAL TABLET 1 po tid with ES Tylenol TRAMADOL HCL 50 MG ORAL TABLET 595044 TRAMADOL HCL Inactive PROAIR HFA 108 (90 BASE) MCG/ACT INHALATION AEROSOL SOLUTION 1-2 puffs four times a day as needed PROAIR HFA 108 (90 BASE) MCG/ACT INHALATION AEROSOL SOLUTION ALBUTEROL SULFATE Inactive PREDNISONE 20 MG ORAL TABLET two tabs by mouth today, then one tab by mouth days two and three PREDNISONE 20 MG ORAL TABLET 256504 PREDNISONE Inactive TESSALON PERLES 100 MG ORAL CAPSULE 1-2 tablet by mouth 3 times daily 04/16 TESSALON PERLES 100 MG ORAL CAPSULE 167101 BENZONATATE Inactive PREDNISONE 10 MG ORAL TABLET 1 tablet by mouth daily PREDNISONE 10 MG ORAL TABLET 920726 PREDNISONE Inactive NYSTATIN 243395 UNIT/GM EXTERNAL CREAM Apply to rash 2-3 times a day and may repeat as needed NYSTATIN 889482 UNIT/GM EXTERNAL CREAM 692481 NYSTATIN Inactive TRIAMCINOLONE ACETONIDE 0.1 % EXTERNAL CREAM apply bid sparingly to rash 2017 TRIAMCINOLONE ACETONIDE 0.1 % EXTERNAL CREAM 2541537 TRIAMCINOLONE ACETONIDE Inactive AZITHROMYCIN 250 MG ORAL TABLET 2 po qd x 1 day, then 1 po qd x 4 days 10/16 AZITHROMYCIN 250 MG ORAL TABLET 703912 AZITHROMYCIN Inactive AZITHROMYCIN 250 MG ORAL TABLET 2 po qd x 1 day, then 1 po qd x 4 days 10/21 AZITHROMYCIN 250 MG ORAL TABLET 890970 AZITHROMYCIN Inactive NYSTATIN-TRIAMCINOLONE 545655-2.1 UNIT/GM-% EXTERNAL CREAM Apply to area BID NYSTATIN-TRIAMCINOLONE 842325-5.1 UNIT/GM-% EXTERNAL CREAM 1587343 NYSTATIN-TRIAMCINOLONE Inactive AZITHROMYCIN 250 MG ORAL TABLET 2 po qd x 1 day, then 1 po qd x 4 days 05/07 AZITHROMYCIN 250 MG ORAL TABLET 014515 AZITHROMYCIN Inactive AZITHROMYCIN 250 MG ORAL TABLET 2 po qd x 1 day, then 1 po qd x 4 days 10/13 AZITHROMYCIN 250 MG ORAL TABLET 678267 AZITHROMYCIN Inactive AZITHROMYCIN 250 MG ORAL TABLET 2 po qd x 1 day, then 1 po qd x 4 days 07/12 AZITHROMYCIN 250 MG ORAL TABLET 051835 AZITHROMYCIN Inactive PREDNISONE 20 MG ORAL TABLET 2 tabs daily for 3 days, 1 tab daily for 3 days, 1/2 tab daily for 2 days PREDNISONE 20 MG ORAL TABLET 252390 PREDNISONE Inactive DOXYCYCLINE HYCLATE 100 MG ORAL CAPSULE 1 cap by mouth BID x10 days DOXYCYCLINE HYCLATE 100 MG ORAL CAPSULE 8535520 DOXYCYCLINE HYCLATE Inactive ZITHROMAX 250 MG ORAL TABLET Take two (2 ) tablets day one, then one (1) tablet a day for four (4) more days ZITHROMAX 250 MG ORAL TABLET 900440 AZITHROMYCIN Inactive Advance Directives Directive Description Start [...] Ag - Chemistry sodium, serum 141 mmol/L 012-413 7942/12/17 carbon dioxide, venous blood 30.9 mmol/L 21.0-32.0 [...] 0-29 Encounters Code Encounter Date Provider Facility CPT-39968 [id number] Vst-Est Level III 14:38:24 [employer]SEM[employer] DIELECT[employer] Piotr Wilson Edi [facility] CPT-31290 [id number] Vst-Est Level IV 08:51:04 ASSEMBLER DIELECTRIC HEATER Piotr Wilson Edi [facility] CPT-20064 [id number] Vst-Est Level III 14:29:05 CDT Piotr Wilson [facility] CPT-77956 Level 3 Est. Patient 15:59:25 ASSEMBLER DIELECTRIC HEATER Piotr Daley [facility] CPT-43405 Level 3 Est. Patient 12:33:59 ASSEMBLER DIELECTRIC HEATER Piotr Wilson [facility] CPT-39156 Level 3 Est. Patient 15:56:17 ASSEMBLER DIELECTRIC HEATER Piotr Wilson [facility] CPT-71769 Level 3 Est. Patient 10:34:54 ASSEMBLER DIELECTRIC HEATER Piotr Wilson [facility] CPT-55072 Level 3 Est. Patient 17:10:19 CDT Nella Harris APRN [facility] CPT-54892 Level 3 Est. Patient 10:48:17 [employer]SEMBLER DIELECTR[employer] HEATER Matthew Rangel MD [facility] CPT-75673 Level 4 Est. Patient 17:15:07 ASSEMBLER DIELECTRIC HEATER Piotr Wilson [facility] CPT-78236 Level 3 Est. Patient 12:46:13 ASSEMBLER DIELECTRIC HEATER Piotr Wilson [facility] CPT-14317 Level 3 Est. Patient 15:14:31 ASSEMBLER DIELECTRIC HEATER Piotr Daley [facility] CPT-62579 Level 3 Est. Patient 09:20:13 ASSEMBLER DIELECTRIC HEATER Piotr Wilson [facility] CPT-71366 Level 3 Est. Patient 09:49:40 CDT Piotr Wilson [facility] CPT-52147 Level 3 Est. Patient 16:28:11 CDT Piotr Wilson [facility] CPT-09819 Level 3 Est. Patient 12:41:58 ASSEMBLER DIELECTRIC HEATER Piotr Daley [facility] CPT-67781 Level 3 Est. Patient 09:21:24 CDT Piotr Daley [facility] CPT-93120 Level 3 Est. Patient 09:21:11 CDT Piotr Daley [facility] CPT-77013 Level 3 Est. Patient 11:16:29 ASSEMBLER DIELECTRIC HEATER Piotr Daley [facility] CPT-23413 Level 3 Est. Patient 18:40:19 ASSEMBLER DIELECTRIC HEATER Piotr Daley [facility] CPT-28713 Level 3 Est. Patient 19:30:50 CDT Piotr Daley [facility] CPT-65181 Level 3 Est. Patient 22:06:44 CDT Katrina Rinaldi MD [facility] CPT-38637 Level 3 Est. Patient 14:20:00 CDT Piotr Daley [facility] CPT-66831 Level 3 Est. Patient 14:15:22 ASSEMBLER DIELECTRIC HEATER Piotr Daley [facility] CPT-10903 Level 3 Est. Patient 20:19:57 ASSEMBLER DIELECTRIC HEATER Piotr Daley [facility] CPT-71376 Level 3 Est. Patient 16:44:32 CDT Piotr Daley [facility] CPT-80346 Level 3 Est. Patient 08:48:46 ASSEMBLER DIELECTRIC HEATER Piotr Daley [facility] CPT-88011 Level 3 Est. Patient 21:01:21 CDT Piotr Daley [facility] Procedures Code Procedure Name Date Entry Date Standard Description CPT-Cryo Cryotherapy 08:51:04 [employer]SEM[employer]ER [employer]LECT[employer] HE[employer] CPT-G0439 [facility] Annual Wellness Exam 08:51:04 [employer]SEMBLER DIELECTRIC HEATER CPT-34657 Sacroiliac jt < 3V - XRAY USE ONLY 16:45:19 [employer]SEM[employer]ER DIELECT[employer]IC HEATER 05/09 CPT-16167 LS spine comp w obliques - XRAY USE ONLY 14:52:26 [employer]SEM[employer]ER [employer]LECT[employer] HE[employer] CPT-16329 Chest, 2 views 12:55:58 [employer]LECT[employer] HE[employer] CPT-G0439 Subsequent Annual Wellness Exam 10:34:52 [employer]SEM[employer]ER [employer]LECTRIC HEATER CPT-06742 BMP - LAB USE ONLY 17:19:11 [employer]ER [employer]LECT[employer] HE[employer] CPT-99925 PT/INR - LAB USE ONLY 17:19:10 [employer]ER [employer]LECT[employer] HEATER CPT-13204 Venipuncture Draw Fee 17:19:10 [employer]SEM[employer]ER [employer]LECTR[employer] HEATER CPT-35241 PT/INR - LAB USE ONLY 08:12:25 [employer]SEMBLER DIELECTRIC HEATER CPT-55365 Venipuncture Draw Fee 08:12:24 [employer]SEMBLER DIELECTRIC HEATER CPT-65578 Venipuncture Draw Fee 11:31:07 ASSEMBLER DIELECTRIC HEATER CPT-42154 TPSA - LAB USE ONLY 11:31:07 ASSEMBLER DIELECTRIC HEATER CPT-86477 PT/INR - LAB USE ONLY 11:31:07 ASSEMBLER [employer]IELECTRIC HEATER CPT-G0439 Subsequent Annual Wellness Exam 09:59:29 [employer]SEM[employer]ER [employer]LECTR[employer] HEATER CPT-51068 Creatinine - LAB USE ONLY 14:37:55 ASSEMBLER DIELECTRIC HEATER CPT-76595 PT/INR - LAB USE ONLY 14:37:55 ASSEMBLER DIELECTRIC HEATER CPT-64228 Venipuncture Draw Fee 14:37:55 ASSEMBLER [employer]LECTRIC HEATER CPT-52921 LS spine comp w obliques - XRAY USE ONLY 12:59:25 ASSEMBLER DIELECTRIC HEATER CPT-85799 PT/INR - LAB USE ONLY 13:49:20 CDT CPT-81693 Venipuncture Draw Fee 13:49:19 CDT CPT-89699 PT/INR - LAB USE ONLY 15:48:49 CDT CPT-08890 Venipuncture Draw Fee 15:48:49 CDT CPT-67977 Venipuncture Draw Fee 11:31:59 CDT CPT-94513 PT/INR - LAB USE ONLY 11:31:59 CDT CPT-92954 Venipuncture Draw Fee 13:29:15 CDT CPT-24186 Thoracolumbar AP/Lat 15:19:19 [employer] CPT-G0438 Initial Annual Wellness Exam 12:18:54 [employer]ER [employer]LECT[employer] CPT-02215 Knee 3V 09:57:38 CDT CPT-OV Office Visit 15:45:01 [employer]ER [employer]LECT[employer] CPT-58547 Abd compl w upright 17:10:25 CDT
--- OUTSIDE RECORDS SUMMARY | 2018-07-18 07:22 | XMS REPORT | Clinical Summary ---
Author Author Admin, [employer] Address Unknown Phone Unavailable Allergies, Adverse Reactions, [...] Coronary atherosclerosis of unspecified type of vessel, [place] or graft Back pain, thoracic region, left [...] THROMBOPHLEBITIS, LEG, 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 Inactive Sirisha Chen [employer] DEEP VENOUS THROMBOPHLEBITIS, LEG, 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 Inactive Sirisha Chen [employer] Seborrheic keratosis ICD-702.19 Inactive Sirisha Chen [employer] Bronchitis-Acute ICD-466.0 Inactive Piotr Daley DO Leg pain, right ICD-729.5 Inactive Sirisha Chen [employer] Right leg pain ICD-729.5 Inactive Sirisha Chen [employer] Bronchitis-Acute ICD-466.0 Inactive Sirisha Chen [employer] Knee pain, left ICD-719.46 Inactive Sirisha Chen [employer] Actinic keratoses ICD-702.0 Inactive Sirisha Chen [employer] Back pain, thoracic region, left ICD-724.1 Inactive Piotr Daley DO Thoracic back pain ICD-724.5 Inactive Sirisha Chen [employer] Back pain lumbar ICD-724.2 Inactive Sirisha Chen [employer] Insect bite ICD-919.4 Inactive Sirisha Chen [employer] Pruritus ICD-698.9 Inactive Sirisha Chen [employer] 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 Bronchitis-Acute ICD-466.0 Inactive Sirisha Chen [employer] Dyspnea ICD-786.09 Inactive Sirisha Chen [employer] 05/09 Pes anserinus bursitis, right ICD-726.61 Inactive Piotr Daley DO Medication List Medication Instructions Start Date Stop Date Generic Name [facility] Status Provider Patient Instruction TRIAMCINOLONE ACETONIDE 0.1 % EXTERNAL CREAM apply bid sparingly to rash 2017 TRIAMCINOLONE ACETONIDE 21806163788 No Longer Active Piotr Daley DO Active NYSTATIN 373403 UNIT/GM EXTERNAL CREAM Apply to rash 2-3 times a day and may repeat as needed NYSTATIN 14383043400 No Longer Active Piotr Daley DO Active WARFARIN SODIUM 4 MG ORAL TABLET 1 tablet by mouth daily WARFARIN SODIUM 78354374727 Active Sirisha Chen LPN Active MELOXICAM 15 MG ORAL TABLET 1 po q day for pain with food MELOXICAM 35025940486 Active Piotr Daley DO Active PREDNISONE 10 MG ORAL TABLET 1 tablet by mouth daily PREDNISONE 77908492096 No Longer Active Emelyn Norris Active TESSALON PERLES 100 MG ORAL CAPSULE 1-2 tablet by mouth 3 times daily 04/16 BENZONATATE 72202908556 No Longer Active Emelyn Norris Active PREDNISONE 20 MG ORAL TABLET two tabs by mouth today, then one tab by mouth days two and three PREDNISONE 74365918242 No Longer Active Piotr Daley DO Active CYCLOBENZAPRINE HCL 10 MG ORAL TABLET 1 tablet by mouth three times daily as needed for muscle spasm/pain CYCLOBENZAPRINE HCL 67594472100 Active Sirisha Chen LPN Active ZITHROMAX 250 MG ORAL TABLET Take two (2 ) tablets day one, then one (1) tablet a day for four (4) more days AZITHROMYCIN 27388616849 No Longer Active Piotr Daley DO Active PROAIR HFA 108 (90 BASE) MCG/ACT INHALATION AEROSOL SOLUTION 1-2 puffs four times a day as needed ALBUTEROL SULFATE 33710468561 No Longer Active Emelyn Norris Active DOXYCYCLINE HYCLATE 100 MG ORAL CAPSULE 1 cap by mouth BID x10 days DOXYCYCLINE HYCLATE 83551761900 No Longer Active Nella Harris APRN Active PREDNISONE 20 MG ORAL TABLET 2 tabs daily for 3 days, 1 tab daily for 3 days, 1/2 tab daily for 2 days PREDNISONE 60592628800 No Longer Active Matthew Rangel MD Active TRAMADOL HCL 50 MG ORAL TABLET 1 po tid with ES Tylenol TRAMADOL HCL 82189424388 No Longer Active Matthew Rangel MD Active GABAPENTIN 300 MG ORAL CAPSULE 1 po q hs for nerve pain GABAPENTIN 34832723697 No Longer Active Matthew Rangel MD Active PREDNISONE 20 MG ORAL TABLET 2 tablets today, then 1 tablet days 2 through 4 PREDNISONE 46462801690 No Longer Active Piotr Daley DO Active AZITHROMYCIN 250 MG ORAL TABLET 2 po qd x 1 day, then 1 po qd x 4 days 07/12 AZITHROMYCIN 27871737208 No Longer Active Piotr Daley DO Active IBUPROFEN 800 MG ORAL TABLET 1 tab every 8 hours as needed 07/12 IBUPROFEN 67199022730 No Longer Active Piotr Daley DO Active LOMOTIL 2.5-0.025 MG ORAL TABLET 1 to 2 four times a day as needed for diarrhea DIPHENOXYLATE-ATROPINE 46098318015 No Longer Active Piotr Daley DO Active WARFARIN SODIUM 4 MG ORAL TABLET 1 tab every evening WARFARIN SODIUM 61169389984 No Longer Active Piotr Daley DO Active PREDNISONE 20 MG ORAL TABLET 1 tablet twice daily for 2 days, then 1 tablet once daily for 2 days PREDNISONE 13358133256 No Longer Active Piotr Daley DO Active PROMETHAZINE HCL 25 MG ORAL TABLET 1 four times a day as needed for nausea/ vomiting PROMETHAZINE HCL 91821528485 No Longer Active Piotr Daley DO Active TUSSIONEX PENNKINETIC ER 10-8 MG/5ML ORAL SUSPENSION EXTENDED RELEASE 5ml po q12hr PRN Cough HYDROCOD POLST-CHLORPHEN POLST 29216554168 No Longer Active Piotr Daley DO Active AZITHROMYCIN 250 MG ORAL TABLET 2 po qd x 1 day, then 1 po qd x 4 days 10/13 AZITHROMYCIN 02347341278 No Longer Active Piotr Daley DO Active AZITHROMYCIN 250 MG ORAL TABLET 2 po qd x 1 day, then 1 po qd x 4 days 05/07 AZITHROMYCIN 14670341385 No Longer Active Piotr Daley DO Active LISINOPRIL-HYDROCHLOROTHIAZIDE 10-12.5 MG ORAL TABLET 1 tab by mouth daily LISINOPRIL-HYDROCHLOROTHIAZIDE 20860497719 Active Sirisha Gustavo [employer] Active LISINOPRIL 10 MG ORAL TABLET 1/2-1 tab po every other day LISINOPRIL 83479057735 No Longer Active Piotr Daley DO Active VENTOLIN HFA 108 (90 Base) MCG/ACT INHALATION AEROSOL SOLUTION 2 puffs four times a day PRN cough ALBUTEROL SULFATE 17054841444 No Longer Active Piotr Daley DO Active NYSTATIN-TRIAMCINOLONE 044653-1.1 UNIT/GM-% EXTERNAL CREAM Apply to area BID NYSTATIN-TRIAMCINOLONE 05532773683 No Longer Active Alena Chavira [employer] Active PHISOHEX 3 % LIQD Use Directed HEXACHLOROPHENE 87738393782 No Longer Active Sandra Squire Active AZITHROMYCIN 250 MG ORAL TABLET 2 po qd x 1 day, then 1 po qd x 4 days 10/21 AZITHROMYCIN 74275071744 No Longer Active Katrina Rinaldi MD PhD Active AZITHROMYCIN 250 MG ORAL TABLET 2 po qd x 1 day, then 1 po qd x 4 days 10/16 AZITHROMYCIN 13193109458 No Longer Active Piotr Daley DO Active AZITHROMYCIN 500 MG INTRAVENOUS SOLUTION RECONSTITUTED 1 po q day AZITHROMYCIN 36588756932 No Longer Active Piotr Daley DO Active NYSTATIN-TRIAMCINOLONE 016251-9.1 UNIT/GM-% EXTERNAL CREAM apply bid NYSTATIN-TRIAMCINOLONE 54426100858 No Longer Active Piotr Daley DO Active IBUPROFEN 800 MG ORAL TABLET 1 po q 8 hours prn pain sparinly IBUPROFEN 52101773263 No Longer Active Piotr Daley DO Active VITAMIN D3 5000 UNIT ORAL CAPSULE 1 po daily CHOLECALCIFEROL 04840509013 Active Piotr Daley DO Active IBUPROFEN 800 MG ORAL TABLET 1 po q 8 hours prn pain sparinly IBUPROFEN 800 MG ORAL TABLET 378233 IBUPROFEN Inactive NYSTATIN-TRIAMCINOLONE 568460-1.1 UNIT/GM-% EXTERNAL CREAM apply bid NYSTATIN-TRIAMCINOLONE 501601-0.1 UNIT/GM-% EXTERNAL CREAM 6701325 NYSTATIN-TRIAMCINOLONE Inactive AZITHROMYCIN 500 MG INTRAVENOUS SOLUTION RECONSTITUTED 1 po q day AZITHROMYCIN 500 MG INTRAVENOUS SOLUTION RECONSTITUTED 30976935356 AZITHROMYCIN Inactive VENTOLIN HFA 108 (90 Base) MCG/ACT INHALATION AEROSOL SOLUTION 2 puffs four times a day PRN cough VENTOLIN HFA 108 (90 Base) MCG/ ACT INHALATION AEROSOL SOLUTION ALBUTEROL SULFATE Inactive LISINOPRIL 10 MG ORAL TABLET 1/2-1 tab po every other day LISINOPRIL 10 MG ORAL TABLET 303513 LISINOPRIL Inactive TUSSIONEX PENNKINETIC ER 10-8 MG/5ML ORAL SUSPENSION EXTENDED RELEASE 5ml po q12hr PRN Cough TUSSIONEX PENNKINETIC ER 10-8 MG/5ML ORAL SUSPENSION EXTENDED RELEASE HYDROCOD POLST-CHLORPHEN POLST Inactive PROMETHAZINE HCL 25 MG ORAL TABLET 1 four times a day as needed for nausea/ vomiting PROMETHAZINE HCL 25 MG ORAL TABLET 633159 PROMETHAZINE HCL Inactive PREDNISONE 20 MG ORAL TABLET 1 tablet twice daily for 2 days, then 1 tablet once daily for 2 days PREDNISONE 20 MG ORAL TABLET 704000 PREDNISONE Inactive WARFARIN SODIUM 4 MG ORAL TABLET 1 tab every evening WARFARIN SODIUM 4 MG ORAL TABLET 841291 WARFARIN SODIUM Inactive LOMOTIL 2.5-0.025 MG ORAL TABLET 1 to 2 four times a day as needed for diarrhea LOMOTIL 2.5-0.025 MG ORAL TABLET 6859135 DIPHENOXYLATE-ATROPINE Inactive IBUPROFEN 800 MG ORAL TABLET 1 tab every 8 hours as needed 07/12 IBUPROFEN 800 MG ORAL TABLET 713213 IBUPROFEN Inactive PREDNISONE 20 MG ORAL TABLET 2 tablets today, then 1 tablet days 2 through 4 PREDNISONE 20 MG ORAL TABLET 236369 PREDNISONE Inactive GABAPENTIN 300 MG ORAL CAPSULE 1 po q hs for nerve pain GABAPENTIN 300 MG ORAL CAPSULE 595645 GABAPENTIN Inactive TRAMADOL HCL 50 MG ORAL TABLET 1 po tid with ES Tylenol TRAMADOL HCL 50 MG ORAL TABLET 026037 TRAMADOL HCL Inactive PROAIR HFA 108 (90 BASE) MCG/ACT INHALATION AEROSOL SOLUTION 1-2 puffs four times a day as needed PROAIR HFA 108 (90 BASE) MCG/ACT INHALATION AEROSOL SOLUTION ALBUTEROL SULFATE Inactive PREDNISONE 20 MG ORAL TABLET two tabs by mouth today, then one tab by mouth days two and three PREDNISONE 20 MG ORAL TABLET 638325 PREDNISONE Inactive TESSALON PERLES 100 MG ORAL CAPSULE 1-2 tablet by mouth 3 times daily 04/16 TESSALON PERLES 100 MG ORAL CAPSULE 528607 BENZONATATE Inactive PREDNISONE 10 MG ORAL TABLET 1 tablet by mouth daily PREDNISONE 10 MG ORAL TABLET 897410 PREDNISONE Inactive NYSTATIN 886898 UNIT/GM EXTERNAL CREAM Apply to rash 2-3 times a day and may repeat as needed NYSTATIN 434892 UNIT/GM EXTERNAL CREAM 453632 NYSTATIN Inactive TRIAMCINOLONE ACETONIDE 0.1 % EXTERNAL CREAM apply bid sparingly to rash 2017 TRIAMCINOLONE ACETONIDE 0.1 % EXTERNAL CREAM 8572548 TRIAMCINOLONE ACETONIDE Inactive AZITHROMYCIN 250 MG ORAL TABLET 2 po qd x 1 day, then 1 po qd x 4 days 10/16 AZITHROMYCIN 250 MG ORAL TABLET 362108 AZITHROMYCIN Inactive AZITHROMYCIN 250 MG ORAL TABLET 2 po qd x 1 day, then 1 po qd x 4 days 10/21 AZITHROMYCIN 250 MG ORAL TABLET 229858 AZITHROMYCIN Inactive NYSTATIN-TRIAMCINOLONE 445129-9.1 UNIT/GM-% EXTERNAL CREAM Apply to area BID NYSTATIN-TRIAMCINOLONE 560585-1.1 UNIT/GM-% EXTERNAL CREAM 2395621 NYSTATIN-TRIAMCINOLONE Inactive AZITHROMYCIN 250 MG ORAL TABLET 2 po qd x 1 day, then 1 po qd x 4 days 05/07 AZITHROMYCIN 250 MG ORAL TABLET 433516 AZITHROMYCIN Inactive AZITHROMYCIN 250 MG ORAL TABLET 2 po qd x 1 day, then 1 po qd x 4 days 10/13 AZITHROMYCIN 250 MG ORAL TABLET 657449 AZITHROMYCIN Inactive AZITHROMYCIN 250 MG ORAL TABLET 2 po qd x 1 day, then 1 po qd x 4 days 07/12 AZITHROMYCIN 250 MG ORAL TABLET 035412 AZITHROMYCIN Inactive PREDNISONE 20 MG ORAL TABLET 2 tabs daily for 3 days, 1 tab daily for 3 days, 1/2 tab daily for 2 days PREDNISONE 20 MG ORAL TABLET 569827 PREDNISONE Inactive DOXYCYCLINE HYCLATE 100 MG ORAL CAPSULE 1 cap by mouth BID x10 days DOXYCYCLINE HYCLATE 100 MG ORAL CAPSULE 0709237 DOXYCYCLINE HYCLATE Inactive ZITHROMAX 250 MG ORAL TABLET Take two (2 ) tablets day one, then one (1) tablet a day for four (4) more days ZITHROMAX 250 MG ORAL TABLET 669313 AZITHROMYCIN Inactive Advance Directives Directive Description Start [...] Ag - Chemistry sodium, serum 141 mmol/L 304-448 0189/12/17 carbon dioxide, venous blood 30.9 mmol/L 21.0-32.0 [...] 0-29 Encounters Code Encounter Date Provider Facility CPT-24345 50614-Tec Vst-Est Level III 14:38:24 BUSINESS [employer]TELLIGENCE ETL DEVELOPER Piotr Wilson [facility] CPT-66291 53182-Hsf Vst-Est Level IV 08:51:04 BUSINESS INTELLIGENCE ETL DEVELOPER Piotr Wilson [facility] CPT-31555 88107-Szq Vst-Est Level III 14:29:05 CDT Piotr Wilson [facility] CPT-22018 Level 3 Est. Patient 15:59:25 BUSINESS INTELLIGENCE ETL DEVELOPER Piotr Wilson [facility] CPT-15713 Level 3 Est. Patient 12:33:59 BUSINESS INTELLIGENCE ETL DEVELOPER Piotr Wilson [facility] CPT-90035 Level 3 Est. Patient 15:56:17 BUSINESS INTELLIGENCE ETL DEVELOPER Piotr Wilson [facility] CPT-71373 Level 3 Est. Patient 10:34:54 BUSINESS INTELLIGENCE ETL DEVELOPER Piotr Wilson [facility] CPT-68694 Level 3 Est. Patient 17:10:19 CDT Nella Harris APRN [facility] CPT-44050 Level 3 Est. Patient 10:48:17 BUSINESS INTELLIGENCE ETL DEVELOPER Matthew Rangel MD [facility] CPT-16318 Level 4 Est. Patient 17:15:07 BUSINESS INTELLIGENCE ETL DEVELOPER Piotr Wilson [facility] CPT-50360 Level 3 Est. Patient 12:46:13 BUSINESS INTELLIGENCE ETL DEVELOPER Piotr Wilson [facility] CPT-06412 Level 3 Est. Patient 15:14:31 BUSINESS INTELLIGENCE ETL DEVELOPER Piotr Daley [facility] CPT-22995 Level 3 Est. Patient 09:20:13 BUSINESS INTELLIGENCE ETL DEVELOPER Piotr Wilson [facility] CPT-35847 Level 3 Est. Patient 09:49:40 CDT Piotr Wilson [facility] CPT-50890 Level 3 Est. Patient 16:28:11 CDT Piotr Wilson [facility] CPT-94778 Level 3 Est. Patient 12:41:58 BUSINESS INTELLIGENCE ETL DEVELOPER Piotr Daley [facility] CPT-13224 Level 3 Est. Patient 09:21:24 CDT Piotr Daley [facility] CPT-76751 Level 3 Est. Patient 09:21:11 CDT Piotr Daley [facility] CPT-61201 Level 3 Est. Patient 11:16:29 BUSINESS INTELLIGENCE ETL DEVELOPER Piotr Daley [facility] CPT-11702 Level 3 Est. Patient 18:40:19 BUSINESS INTELLIGENCE ETL DEVELOPER Piotr Daley [facility] CPT-86753 Level 3 Est. Patient 19:30:50 CDT Piotr Daley [facility] CPT-96741 Level 3 Est. Patient 22:06:44 CDT Katrina Rinaldi MD [facility] CPT-18258 Level 3 Est. Patient 14:20:00 CDT Piotr Daley [facility] CPT-92342 Level 3 Est. Patient 14:15:22 BUSINESS INTELLIGENCE ETL DEVELOPER Piotr Daley [facility] CPT-46146 Level 3 Est. Patient 20:19:57 BUSINESS INTELLIGENCE ETL DEVELOPER Piotr Daley [facility] CPT-20823 Level 3 Est. Patient 16:44:32 CDT Piotr Daley [facility] CPT-96625 Level 3 Est. Patient 08:48:46 BUSINESS INTELLIGENCE ETL DEVELOPER Piotr Daley [facility] CPT-65114 Level 3 Est. Patient 21:01:21 CDT Piotr Katie Daley [facility] Procedures Code Procedure Name Date Entry Date Standard Description CPT-Cryo Cryotherapy 08:51:04 BUSINESS INTELLIGENCE ETL DEVELOPER CPT-G0439 [facility] Annual Wellness Exam 08:51:04 BUSINESS INTELLIGENCE ETL DEVELOPER CPT-03858 Sacroiliac jt < 3V - XRAY USE ONLY 16:45:19 BUSINESS INTELLIGENCE ETL DEVELOPER 05/09 CPT-38872 LS spine comp w obliques - XRAY USE ONLY 14:52:26 BUSINESS INTELLIGENCE ETL DEVELOPER CPT-38969 Chest, 2 views 12:55:58 BUSINESS INTELLIGENCE ETL DEVELOPER CPT-G0439 Subsequent Annual Wellness Exam 10:34:52 BUSINESS INTELLIGENCE ETL DEVELOPER CPT-30674 BMP - LAB USE ONLY 17:19:11 BUSINESS INTELLIGENCE ETL DEVELOPER CPT-94534 PT/INR - LAB USE ONLY 17:19:10 BUSINESS INTELLIGENCE ETL DEVELOPER CPT-91891 Venipuncture Draw Fee 17:19:10 BUSINESS INTELLIGENCE ETL DEVELOPER CPT-92858 PT/INR - LAB USE ONLY 08:12:25 BUSINESS INTELLIGENCE ETL DEVELOPER CPT-83298 Venipuncture Draw Fee 08:12:24 BUSINESS INTELLIGENCE ETL DEVELOPER CPT-24760 Venipuncture Draw Fee 11:31:07 BUSINESS INTELLIGENCE ETL DEVELOPER CPT-26611 TPSA - LAB USE ONLY 11:31:07 BUSINESS INTELLIGENCE ETL DEVELOPER CPT-04138 PT/INR - LAB USE ONLY 11:31:07 BUSINESS INTELLIGENCE ETL DEVELOPER CPT-G0439 Subsequent Annual Wellness Exam 09:59:29 BUSINESS INTELLIGENCE ETL DEVELOPER CPT-54843 Creatinine - LAB USE ONLY 14:37:55 BUSINESS INTELLIGENCE ETL DEVELOPER CPT-70993 PT/INR - LAB USE ONLY 14:37:55 BUSINESS INTELLIGENCE ETL DEVELOPER CPT-06904 Venipuncture Draw Fee 14:37:55 BUSINESS INTELLIGENCE ETL DEVELOPER CPT-81353 LS spine comp w obliques - XRAY USE ONLY 12:59:25 BUSINESS INTELLIGENCE ETL DEVELOPER CPT-54448 PT/INR - LAB USE ONLY 13:49:20 CDT CPT-83859 Venipuncture Draw Fee 13:49:19 CDT CPT-14246 PT/INR - LAB USE ONLY 15:48:49 CDT CPT-99652 Venipuncture Draw Fee 15:48:49 CDT CPT-98568 Venipuncture Draw Fee 11:31:59 CDT CPT-93295 PT/INR - LAB USE ONLY 11:31:59 CDT CPT-38337 Venipuncture Draw Fee 13:29:15 CDT CPT-21430 Thoracolumbar AP/Lat 15:19:19 BUSINESS INTELLIGENCE ETL DEVELOPER CPT-G0438 Initial Annual Wellness Exam 12:18:54 BUSINESS INTELLIGENCE ETL DEVELOPER CPT-24882 Knee 3V 09:57:38 CDT CPT-OV Office Visit 15:45:01 BUSINESS INTELLIGENCE ETL DEVELOPER CPT-22949 Abd compl w upright 17:10:25 CDT
--- OUTSIDE RECORDS SUMMARY | 2018-07-18 07:23 | XMS REPORT | Clinical Summary ---
Author Author Admin, Isidra Organization [employer] Address Unknown Phone Unavailable Allergies, Adverse Reactions, [...] Coronary atherosclerosis of unspecified type of vessel, [place] or graft Back pain, thoracic region, left [...] disorder Wellness exam V70.0 Active Emelyn Goode Rachealisidra Routine general medical examination at a health care facility Bronchitis-Acute 466.0 Resolved Emelyn Norris Acute bronchitis Dyspnea 786.09 Resolved Emelyn Norris Other dyspnea and respiratory abnormality Sacroiliitis, right 720.2 Active Emelyn Goode Rachealisidra Sacroiliitis, not elsewhere classified Pes anserinus bursitis, right 726.61 Inactive Piotr Daley DO Pes anserinus tendinitis or bursitis Body Mass Index 30.0-30.9 Adult Active Piotr Daley DO Body Mass Index 30.0-30.9, adult Obesity Class I (BMI 30-34.9) Active Piotr Daley DO Obesity, unspecified Deep venous thrombophlebitis, 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 Piotr Daley DO Acute venous embolism and thrombosis of unspecified deep vessels of lower extremity Actinic keratosis, head 702.0 Active Piotr Daley DO Actinic keratosis FLANK PAIN, RIGHT ICD-789.09 Inactive Katrina Rinaldi MD PhD HEALTH MAINTENANCE EXAM ICD-V70.0 Inactive Katrina Rinaldi MD PhD BRONCHITIS-ACUTE ICD-466.0 Inactive Piotr Daley DO SCREENING, COLON CANCER ICD-V76.51 Inactive Katrina Rinaldi MD PhD BRONCHITIS-ACUTE ICD-466.0 Inactive Piotr Daley DO DEEP VENOUS THROMBOPHLEBITIS, LEG, 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 Inactive Sirisha Chen LPN DEEP VENOUS THROMBOPHLEBITIS, LEG, 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 Inactive Sirisha Chen [employer] Seborrheic keratosis ICD-702.19 Inactive Sirisha Chen [employer] Bronchitis-Acute ICD-466.0 Inactive Piotr Daley DO Leg pain, right ICD-729.5 Inactive Sirisha Chen [employer] Right leg pain ICD-729.5 Inactive Sirisha Chen [employer] Bronchitis-Acute ICD-466.0 Inactive Sirisha Chen [employer] Knee pain, left ICD-719.46 Inactive Sirisha Chen [employer] Actinic keratoses ICD-702.0 Inactive Sirisha Chen [employer] Back pain, thoracic region, left ICD-724.1 Inactive Piotr Daley DO Thoracic back pain ICD-724.5 Inactive Sirisha Chen [employer] Back pain lumbar ICD-724.2 Inactive Sirisha Chen [employer] Insect bite ICD-919.4 Inactive Sirisha Chen [employer] Pruritus ICD-698.9 Inactive Sirisha Chen [employer] 04/09 Bronchitis-Acute ICD-466.0 Inactive Sirisha Chen [employer] Dyspnea ICD-786.09 Inactive Sirisha Chen [employer] 05/09 Pes anserinus bursitis, right ICD-726.61 Inactive Piotr Daley DO Medication List Medication Instructions Start Date Stop Date Generic Name NDC Status Provider Patient Instruction TRIAMCINOLONE ACETONIDE 0.1 % EXTERNAL CREAM apply bid sparingly to rash 2017 TRIAMCINOLONE ACETONIDE 83953641860 No Longer Active Piotr Daley DO Active NYSTATIN 239997 UNIT/GM EXTERNAL CREAM Apply to rash 2-3 times a day and may repeat as needed NYSTATIN 53301649303 No Longer Active Piotr Daley DO Active WARFARIN SODIUM 4 MG ORAL TABLET 1 tablet by mouth daily WARFARIN SODIUM 15551800713 Active Sirisha Chen LPN Active MELOXICAM 15 MG ORAL TABLET 1 po q day for pain with food MELOXICAM 09200941773 Active Piotr Daley DO Active PREDNISONE 10 MG ORAL TABLET 1 tablet by mouth daily PREDNISONE 05619437300 No Longer Active Emelyn Norris Active TESSALON PERLES 100 MG ORAL CAPSULE 1-2 tablet by mouth 3 times daily 04/16 BENZONATATE 32233093112 No Longer Active Emelyn Norris Active PREDNISONE 20 MG ORAL TABLET two tabs by mouth today, then one tab by mouth days two and three PREDNISONE 38245668200 No Longer Active Piotr Daley DO Active CYCLOBENZAPRINE HCL 10 MG ORAL TABLET 1 tablet by mouth three times daily as needed for muscle spasm/pain CYCLOBENZAPRINE HCL 91745242503 Active Sirisha Chen LPN Active ZITHROMAX 250 MG ORAL TABLET Take two (2 ) tablets day one, then one (1) tablet a day for four (4) more days AZITHROMYCIN 24748471172 No Longer Active Piotr Daley DO Active PROAIR HFA 108 (90 BASE) MCG/ACT INHALATION AEROSOL SOLUTION 1-2 puffs four times a day as needed ALBUTEROL SULFATE 36605823639 No Longer Active Emelyn Norris Active DOXYCYCLINE HYCLATE 100 MG ORAL CAPSULE 1 cap by mouth BID x10 days DOXYCYCLINE HYCLATE 49812672656 No Longer Active Nella Harris APRN Active PREDNISONE 20 MG ORAL TABLET 2 tabs daily for 3 days, 1 tab daily for 3 days, 1/2 tab daily for 2 days PREDNISONE 33399225388 No Longer Active Matthew Rangel MD Active TRAMADOL HCL 50 MG ORAL TABLET 1 po tid with ES Tylenol TRAMADOL HCL 08442044368 No Longer Active Matthew Rangel MD Active GABAPENTIN 300 MG ORAL CAPSULE 1 po q hs for nerve pain GABAPENTIN 44353957342 No Longer Active Matthew Rangel MD Active PREDNISONE 20 MG ORAL TABLET 2 tablets today, then 1 tablet days 2 through 4 PREDNISONE 11073983940 No Longer Active Piotr Daley DO Active AZITHROMYCIN 250 MG ORAL TABLET 2 po qd x 1 day, then 1 po qd x 4 days 07/12 AZITHROMYCIN 07576446067 No Longer Active Piotr Daley DO Active IBUPROFEN 800 MG ORAL TABLET 1 tab every 8 hours as needed 07/12 IBUPROFEN 03075119684 No Longer Active Piotr Daley DO Active LOMOTIL 2.5-0.025 MG ORAL TABLET 1 to 2 four times a day as needed for diarrhea DIPHENOXYLATE-ATROPINE 89877095949 No Longer Active Piotr Daley DO Active WARFARIN SODIUM 4 MG ORAL TABLET 1 tab every evening WARFARIN SODIUM 22955054597 No Longer Active Piotr Daley DO Active PREDNISONE 20 MG ORAL TABLET 1 tablet twice daily for 2 days, then 1 tablet once daily for 2 days PREDNISONE 49070835381 No Longer Active Piotr Daley DO Active PROMETHAZINE HCL 25 MG ORAL TABLET 1 four times a day as needed for nausea/ vomiting PROMETHAZINE HCL 87530458241 No Longer Active Piotr Daley DO Active TUSSIONEX PENNKINETIC ER 10-8 MG/5ML ORAL SUSPENSION EXTENDED RELEASE 5ml po q12hr PRN Cough HYDROCOD POLST-CHLORPHEN POLST 04099664206 No Longer Active Piotr Daley DO Active AZITHROMYCIN 250 MG ORAL TABLET 2 po qd x 1 day, then 1 po qd x 4 days 10/13 AZITHROMYCIN 05567917457 No Longer Active Piotr Daley DO Active AZITHROMYCIN 250 MG ORAL TABLET 2 po qd x 1 day, then 1 po qd x 4 days 05/07 AZITHROMYCIN 57609934696 No Longer Active Piotr Daley DO Active LISINOPRIL-HYDROCHLOROTHIAZIDE 10-12.5 MG ORAL TABLET 1 tab by mouth daily LISINOPRIL-HYDROCHLOROTHIAZIDE 24337331618 Active Sirisha Finneganughn [employer] Active LISINOPRIL 10 MG ORAL TABLET 1/2-1 tab po every other day LISINOPRIL 02096984923 No Longer Active Piotr Daley DO Active VENTOLIN HFA 108 (90 Base) MCG/ACT INHALATION AEROSOL SOLUTION 2 puffs four times a day PRN cough ALBUTEROL SULFATE 56092505584 No Longer Active Piotr Daley DO Active NYSTATIN-TRIAMCINOLONE 570567-8.1 UNIT/GM-% EXTERNAL CREAM Apply to area BID NYSTATIN-TRIAMCINOLONE 38130974911 No Longer Active Alena Chavira [employer] Active PHISOHEX 3 % LIQD Use Directed HEXACHLOROPHENE 97611678433 No Longer Active Sandra Irving Active AZITHROMYCIN 250 MG ORAL TABLET 2 po qd x 1 day, then 1 po qd x 4 days 10/21 AZITHROMYCIN 24969856022 No Longer Active Katrina Rinaldi MD PhD Active AZITHROMYCIN 250 MG ORAL TABLET 2 po qd x 1 day, then 1 po qd x 4 days 10/16 AZITHROMYCIN 74452598945 No Longer Active Piotr Daley DO Active AZITHROMYCIN 500 MG INTRAVENOUS SOLUTION RECONSTITUTED 1 po q day AZITHROMYCIN 02600803861 No Longer Active Piotr Daley DO Active NYSTATIN-TRIAMCINOLONE 673388-0.1 UNIT/GM-% EXTERNAL CREAM apply bid NYSTATIN-TRIAMCINOLONE 23493398630 No Longer Active Piotr Daley DO Active IBUPROFEN 800 MG ORAL TABLET 1 po q 8 hours prn pain sparinly IBUPROFEN 88547296051 No Longer Active Piotr Daley DO Active VITAMIN D3 5000 UNIT ORAL CAPSULE 1 po daily CHOLECALCIFEROL 39072016104 Active Piotr Daley DO Active IBUPROFEN 800 MG ORAL TABLET 1 po q 8 hours prn pain sparinly IBUPROFEN 800 MG ORAL TABLET 293910 IBUPROFEN Inactive NYSTATIN-TRIAMCINOLONE 409149-4.1 UNIT/GM-% EXTERNAL CREAM apply bid NYSTATIN-TRIAMCINOLONE 814041-6.1 UNIT/GM-% EXTERNAL CREAM 5192407 NYSTATIN-TRIAMCINOLONE Inactive AZITHROMYCIN 500 MG INTRAVENOUS SOLUTION RECONSTITUTED 1 po q day AZITHROMYCIN 500 MG INTRAVENOUS SOLUTION RECONSTITUTED 58636013472 AZITHROMYCIN Inactive VENTOLIN HFA 108 (90 Base) MCG/ACT INHALATION AEROSOL SOLUTION 2 puffs four times a day PRN cough VENTOLIN HFA 108 (90 Base) MCG/ ACT INHALATION AEROSOL SOLUTION ALBUTEROL SULFATE Inactive LISINOPRIL 10 MG ORAL TABLET 1/2-1 tab po every other day LISINOPRIL 10 MG ORAL TABLET 395027 LISINOPRIL Inactive TUSSIONEX PENNKINETIC ER 10-8 MG/5ML ORAL SUSPENSION EXTENDED RELEASE 5ml po q12hr PRN Cough TUSSIONEX PENNKINETIC ER 10-8 MG/5ML ORAL SUSPENSION EXTENDED RELEASE HYDROCOD POLST-CHLORPHEN POLST Inactive PROMETHAZINE HCL 25 MG ORAL TABLET 1 four times a day as needed for nausea/ vomiting PROMETHAZINE HCL 25 MG ORAL TABLET 075675 PROMETHAZINE HCL Inactive PREDNISONE 20 MG ORAL TABLET 1 tablet twice daily for 2 days, then 1 tablet once daily for 2 days PREDNISONE 20 MG ORAL TABLET 223730 PREDNISONE Inactive WARFARIN SODIUM 4 MG ORAL TABLET 1 tab every evening WARFARIN SODIUM 4 MG ORAL TABLET 974439 WARFARIN SODIUM Inactive LOMOTIL 2.5-0.025 MG ORAL TABLET 1 to 2 four times a day as needed for diarrhea LOMOTIL 2.5-0.025 MG ORAL TABLET 5964694 DIPHENOXYLATE-ATROPINE Inactive IBUPROFEN 800 MG ORAL TABLET 1 tab every 8 hours as needed 07/12 IBUPROFEN 800 MG ORAL TABLET 956078 IBUPROFEN Inactive PREDNISONE 20 MG ORAL TABLET 2 tablets today, then 1 tablet days 2 through 4 PREDNISONE 20 MG ORAL TABLET 296576 PREDNISONE Inactive GABAPENTIN 300 MG ORAL CAPSULE 1 po q hs for nerve pain GABAPENTIN 300 MG ORAL CAPSULE 056151 GABAPENTIN Inactive TRAMADOL HCL 50 MG ORAL TABLET 1 po tid with ES Tylenol TRAMADOL HCL 50 MG ORAL TABLET 060171 TRAMADOL HCL Inactive PROAIR HFA 108 (90 BASE) MCG/ACT INHALATION AEROSOL SOLUTION 1-2 puffs four times a day as needed PROAIR HFA 108 (90 BASE) MCG/ACT INHALATION AEROSOL SOLUTION ALBUTEROL SULFATE Inactive PREDNISONE 20 MG ORAL TABLET two tabs by mouth today, then one tab by mouth days two and three PREDNISONE 20 MG ORAL TABLET 350898 PREDNISONE Inactive TESSALON PERLES 100 MG ORAL CAPSULE 1-2 tablet by mouth 3 times daily 04/16 TESSALON PERLES 100 MG ORAL CAPSULE 201296 BENZONATATE Inactive PREDNISONE 10 MG ORAL TABLET 1 tablet by mouth daily PREDNISONE 10 MG ORAL TABLET 469993 PREDNISONE Inactive NYSTATIN 177427 UNIT/GM EXTERNAL CREAM Apply to rash 2-3 times a day and may repeat as needed NYSTATIN 730531 UNIT/GM EXTERNAL CREAM 564895 NYSTATIN Inactive TRIAMCINOLONE ACETONIDE 0.1 % EXTERNAL CREAM apply bid sparingly to rash 2017 TRIAMCINOLONE ACETONIDE 0.1 % EXTERNAL CREAM 6892198 TRIAMCINOLONE ACETONIDE Inactive AZITHROMYCIN 250 MG ORAL TABLET 2 po qd x 1 day, then 1 po qd x 4 days 10/16 AZITHROMYCIN 250 MG ORAL TABLET 515745 AZITHROMYCIN Inactive AZITHROMYCIN 250 MG ORAL TABLET 2 po qd x 1 day, then 1 po qd x 4 days 10/21 AZITHROMYCIN 250 MG ORAL TABLET 119563 AZITHROMYCIN Inactive NYSTATIN-TRIAMCINOLONE 636156-6.1 UNIT/GM-% EXTERNAL CREAM Apply to area BID NYSTATIN-TRIAMCINOLONE 965510-4.1 UNIT/GM-% EXTERNAL CREAM 6043237 NYSTATIN-TRIAMCINOLONE Inactive AZITHROMYCIN 250 MG ORAL TABLET 2 po qd x 1 day, then 1 po qd x 4 days 05/07 AZITHROMYCIN 250 MG ORAL TABLET 054251 AZITHROMYCIN Inactive AZITHROMYCIN 250 MG ORAL TABLET 2 po qd x 1 day, then 1 po qd x 4 days 10/13 AZITHROMYCIN 250 MG ORAL TABLET 898651 AZITHROMYCIN Inactive AZITHROMYCIN 250 MG ORAL TABLET 2 po qd x 1 day, then 1 po qd x 4 days 07/12 AZITHROMYCIN 250 MG ORAL TABLET 843640 AZITHROMYCIN Inactive PREDNISONE 20 MG ORAL TABLET 2 tabs daily for 3 days, 1 tab daily for 3 days, 1/2 tab daily for 2 days PREDNISONE 20 MG ORAL TABLET 169605 PREDNISONE Inactive DOXYCYCLINE HYCLATE 100 MG ORAL CAPSULE 1 cap by mouth BID x10 days DOXYCYCLINE HYCLATE 100 MG ORAL CAPSULE 8096441 DOXYCYCLINE HYCLATE Inactive ZITHROMAX 250 MG ORAL TABLET Take two (2 ) tablets day one, then one (1) tablet a day for four (4) more days ZITHROMAX 250 MG ORAL TABLET 943103 AZITHROMYCIN Inactive Advance Directives Directive Description Start Date LIVING WILL LIVING WILL Immunizations Vaccine Administration Date Value Standard Description influenza immunization (Flu Vax) has been administered Done according to patient influenza virus vaccine, unspecified formulation Vital Signs Date Name Value Unit Range Description blood pressure, diastolic 66 mm[Hg] BP phan [...] Ag - Chemistry sodium, serum 141 mmol/L 969-847 3935/12/17 carbon dioxide, venous blood 30.9 mmol/L 21.0-32.0 [...] 0-29 Encounters Code Encounter Date Provider Facility CPT-06815 [id number] Vst-Est Level IV 08:51:04 [employer] Piotr Wilson [facility] CPT-06373 [id number] Vst-Est Level III 14:29:05 CDT Piotr Wilson [facility] CPT-06049 Level 3 Est. Patient 15:59:25 [employer] Piotr Wilson [facility] CPT-13012 Level 3 Est. Patient 12:33:59 [employer] Piotr Wilson [facility] CPT-92400 Level 3 Est. Patient 15:56:17 [employer] Piotr Wilson [facility] CPT-33114 Level 3 Est. Patient 10:34:54 [employer] Piotr Wilson [facility] CPT-93801 Level 3 Est. Patient 17:10:19 CDT Nella Harris APRN [facility] CPT-11734 Level 3 Est. Patient 10:48:17 [employer] Matthew Rangel MD [facility] CPT-01811 Level 4 Est. Patient 17:15:07 [employer]PER[employer] Piotr Daley [facility] CPT-15839 Level 3 Est. Patient 12:46:13 [employer]PERATOR [employer] Piotr Daley [facility] CPT-91732 Level 3 Est. Patient 15:14:31 [employer]PER[employer] Piotr Daley [facility] CPT-84804 Level 3 Est. Patient 09:20:13 [employer]PER[employer] Piotr Daley [facility] CPT-87974 Level 3 Est. Patient 09:49:40 CDT Piotr Wilson [facility] CPT-25836 Level 3 Est. Patient 16:28:11 CDT Piotr Daley [facility] CPT-44559 Level 3 Est. Patient 12:41:58 [employer] Piotr Daley [facility] CPT-14499 Level 3 Est. Patient 09:21:24 CDT Piotr Daley [facility] CPT-74817 Level 3 Est. Patient 09:21:11 CDT Piotr Wilson Edi [facility] CPT-38639 Level 3 Est. Patient 11:16:29 [employer]PER[employer] Piotr Daley [facility] CPT-26067 Level 3 Est. Patient 18:40:19 [employer]PER[employer] Piotr Daley [facility] CPT-78741 Level 3 Est. Patient 19:30:50 CDT Piotr Daley [facility] CPT-52634 Level 3 Est. Patient 22:06:44 CDT Katrina Rinaldi MD PhD [facility] CPT-77100 Level 3 Est. Patient 14:20:00 CDT Piotr Daley [facility] CPT-29256 Level 3 Est. Patient 14:15:22 [employer]PER[employer] Piotr Daley [facility] CPT-17160 Level 3 Est. Patient 20:19:57 [employer]PER[employer] Piotr Daley [facility] CPT-33772 Level 3 Est. Patient 16:44:32 CDT Piotr Daley [facility] CPT-32575 Level 3 Est. Patient 08:48:46 [employer]PERATOR [employer] Piotr Daley [facility] CPT-50805 Level 3 Est. Patient 21:01:21 CDT Piotr Wilson [facility] Procedures Code Procedure Name Date Entry Date Standard Description CPT-Cryo Cryotherapy 08:51:04 [facility]39 Subsequent Annual Wellness Exam 08:51:04 [facility] C[facility]-20597 Sacroiliac jt < 3V - XRAY USE ONLY 16:45:19 [facility] 05/09 CPT-57422 LS spine comp w obliques - XRAY USE ONLY 14:52:26 [facility] CPT-38612 Chest, 2 views 12:55:58 [facility] CPT-G0439 Subsequent Annual Wellness Exam 10:34:52 [facility] CPT-64239 BMP - LAB USE ONLY 17:19:11 [facility] CPT-72160 PT/INR - LAB USE ONLY 17:19:10 [facility] CPT-83798 Venipuncture Draw Fee 17:19:10 [employer] CPT-89263 PT/INR - LAB USE ONLY 08:12:25 [employer] CPT-84570 Venipuncture Draw Fee 08:12:24 [employer] CPT-72935 Venipuncture Draw Fee 11:31:07 [employer] CPT-45154 TPSA - LAB USE ONLY 11:31:07 [employer] CPT-24722 PT/INR - LAB USE ONLY 11:31:07 [employer] CPT-G0439 Subsequent Annual Wellness Exam 09:59:29 [employer] CPT-39942 Creatinine - LAB USE ONLY 14:37:55 [employer] CPT-43597 PT/INR - LAB USE ONLY 14:37:55 [employer] CPT-36136 Venipuncture Draw Fee 14:37:55 [employer] CPT-84193 LS spine comp w obliques - XRAY USE ONLY 12:59:25 [employer] CPT-23770 PT/INR - LAB USE ONLY 13:49:20 CDT CPT-09210 Venipuncture Draw Fee 13:49:19 CDT CPT-11705 PT/INR - LAB USE ONLY 15:48:49 CDT CPT-89162 Venipuncture Draw Fee 15:48:49 CDT CPT-54926 Venipuncture Draw Fee 11:31:59 CDT CPT-56601 PT/INR - LAB USE ONLY 11:31:59 CDT CPT-24907 Venipuncture Draw Fee 13:29:15 CDT CPT-48649 Thoracolumbar AP/Lat 15:19:19 [employer] CPT-G0438 Initial Annual Wellness Exam 12:18:54 [employer] CPT-36256 Knee 3V 09:57:38 CDT CPT-OV Office Visit 15:45:01 [employer] CPT-06131 Abd compl w upright 17:10:25 CDT
--- OUTSIDE RECORDS SUMMARY | 2018-07-18 07:24 | XMS REPORT | Clinical Summary ---
Author Author Admin, [employer] Address Unknown Phone Unavailable Allergies, Adverse Reactions, [...] Coronary atherosclerosis of unspecified type of vessel, [place] or graft Back pain, thoracic region, left 724.1 Inactive Piotr Katie Edi DO Pain in thoracic spine Thoracic back pain 724.5 Resolved Piotr Katie Edi DO Backache, unspecified Back pain lumbar 724.2 Resolved Piotr Katie Edi DO Lumbago Peripheral neuropathy, lower extremity, left 356.9 Active 02/19 Piotr Katie Edi DO Unspecified hereditary and idiopathic peripheral neuropathy Insect bite 919.4 Resolved Piotr aKtie Edi DO Insect bite, nonvenomous, of other, [...] THROMBOPHLEBITIS, LEG, 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 Inactive Sirisha Chen VEHICLE OPERATOR TECHNICIAN Seborrheic keratosis ICD-702.19 Inactive Sirisha Chen VEHICLE OPERATOR TECHNICIAN Bronchitis-Acute ICD-466.0 Inactive Piotr Daley DO Leg pain, right ICD-729.5 Inactive Sirisha Chen VEHICLE OPERATOR TECHNICIAN Right leg pain ICD-729.5 Inactive Sirisha Chen VEHICLE OPERATOR TECHNICIAN Bronchitis-Acute ICD-466.0 Inactive Sirisha Chen VEHICLE OPERATOR TECHNICIAN Knee pain, left ICD-719.46 Inactive Sirisha Chen VEHICLE OPERATOR TECHNICIAN Actinic keratoses ICD-702.0 Inactive Sirisha Chen VEHICLE OPERATOR TECHNICIAN Back pain, thoracic region, left ICD-724.1 Inactive Piotr Daley DO Thoracic back pain ICD-724.5 Inactive Sirisha Chen VEHICLE OPERATOR TECHNICIAN Back pain lumbar ICD-724.2 Inactive Sirisha Chen VEHICLE OPERATOR TECHNICIAN Insect bite ICD-919.4 Inactive Sirisha Chen VEHICLE OPERATOR TECHNICIAN Pruritus ICD-698.9 Inactive Sirisha Chen VEHICLE OPERATOR TECHNICIAN 04/09 Bronchitis-Acute ICD-466.0 Inactive Sirisha Chen VEHICLE OPERATOR TECHNICIAN Dyspnea ICD-786.09 Inactive Sirisha Chen VEHICLE OPERATOR TECHNICIAN 05/09 Pes anserinus bursitis, right ICD-726.61 Inactive Piotr Daley DO Medication List Medication Instructions Start Date Stop Date Generic Name NDC Status Provider Patient Instruction TRIAMCINOLONE ACETONIDE 0.1 % EXTERNAL CREAM apply bid sparingly to rash 2017 TRIAMCINOLONE ACETONIDE 77191286671 No Longer Active Piotr Daley DO Active NYSTATIN 531173 UNIT/GM EXTERNAL CREAM Apply to rash 2-3 times a day and may repeat as needed NYSTATIN 10285323758 No Longer Active Piotr Daley DO Active WARFARIN SODIUM 4 MG ORAL TABLET 1 tablet by mouth daily WARFARIN SODIUM 37041986784 Active Piotr Daley DO Active MELOXICAM 15 MG ORAL TABLET 1 po q day for pain with food MELOXICAM 07624063695 Active Piotr Daley DO Active PREDNISONE 10 MG ORAL TABLET 1 tablet by mouth daily PREDNISONE 92282165612 No Longer Active Emelyn Norris Active TESSALON PERLES 100 MG ORAL CAPSULE 1-2 tablet by mouth 3 times daily 04/16 BENZONATATE 16603244675 No Longer Active Emelyn Norris Active PREDNISONE 20 MG ORAL TABLET two tabs by mouth today, then one tab by mouth days two and three PREDNISONE 12549163549 No Longer Active Piotr Daley DO Active CYCLOBENZAPRINE HCL 10 MG ORAL TABLET 1 tablet by mouth three times daily as needed for muscle spasm/pain CYCLOBENZAPRINE HCL 48232930074 Active Sirisha Chen VEHICLE OPERATOR TECHNICIAN Active ZITHROMAX 250 MG ORAL TABLET Take two (2 ) tablets day one, then one (1) tablet a day for four (4) more days AZITHROMYCIN 60584373600 No Longer Active Piotr Daley DO Active PROAIR HFA 108 (90 BASE) MCG/ACT INHALATION AEROSOL SOLUTION 1-2 puffs four times a day as needed ALBUTEROL SULFATE 32430173220 No Longer Active Emelyn Norris Active DOXYCYCLINE HYCLATE 100 MG ORAL CAPSULE 1 cap by mouth BID x10 days DOXYCYCLINE HYCLATE 24320309315 No Longer Active Nella Harris APRN Active PREDNISONE 20 MG ORAL TABLET 2 tabs daily for 3 days, 1 tab daily for 3 days, 1/2 tab daily for 2 days PREDNISONE 18374754825 No Longer Active Matthew Rangel MD Active TRAMADOL HCL 50 MG ORAL TABLET 1 po tid with ES Tylenol TRAMADOL HCL 43646319535 No Longer Active Matthew Rangel MD Active GABAPENTIN 300 MG ORAL CAPSULE 1 po q hs for nerve pain GABAPENTIN 92280795429 No Longer Active Matthew Rangel MD Active PREDNISONE 20 MG ORAL TABLET 2 tablets today, then 1 tablet days 2 through 4 PREDNISONE 81672810853 No Longer Active Piotr Daley DO Active AZITHROMYCIN 250 MG ORAL TABLET 2 po qd x 1 day, then 1 po qd x 4 days 07/12 AZITHROMYCIN 65477349336 No Longer Active Piotr Daley DO Active IBUPROFEN 800 MG ORAL TABLET 1 tab every 8 hours as needed 07/12 IBUPROFEN 09075126676 No Longer Active Piotr Daley DO Active LOMOTIL 2.5-0.025 MG ORAL TABLET 1 to 2 four times a day as needed for diarrhea DIPHENOXYLATE-ATROPINE 46477746621 No Longer Active Piotr Daley DO Active WARFARIN SODIUM 4 MG ORAL TABLET 1 tab every evening WARFARIN SODIUM 17913741746 No Longer Active Piotr Daley DO Active PREDNISONE 20 MG ORAL TABLET 1 tablet twice daily for 2 days, then 1 tablet once daily for 2 days PREDNISONE 87846277369 No Longer Active Piotr Daley DO Active PROMETHAZINE HCL 25 MG ORAL TABLET 1 four times a day as needed for nausea/ vomiting PROMETHAZINE HCL 05521626459 No Longer Active Piotr Daley DO Active TUSSIONEX PENNKINETIC ER 10-8 MG/5ML ORAL SUSPENSION EXTENDED RELEASE 5ml po q12hr PRN Cough HYDROCOD POLST-CHLORPHEN POLST 08637593153 No Longer Active Piotr Daley DO Active AZITHROMYCIN 250 MG ORAL TABLET 2 po qd x 1 day, then 1 po qd x 4 days 10/13 AZITHROMYCIN 79156972157 No Longer Active Piotr Daley DO Active AZITHROMYCIN 250 MG ORAL TABLET 2 po qd x 1 day, then 1 po qd x 4 days 05/07 AZITHROMYCIN 09184205426 No Longer Active Piotr Daley DO Active LISINOPRIL-HYDROCHLOROTHIAZIDE 10-12.5 MG ORAL TABLET 1 tab by mouth daily LISINOPRIL-HYDROCHLOROTHIAZIDE 95485804657 Active Sirisha Finneganughn VEHICLE OPERATOR TECHNICIAN Active LISINOPRIL 10 MG ORAL TABLET 1/2-1 tab po every other day LISINOPRIL 14342368646 No Longer Active Piotr Daley DO Active VENTOLIN HFA 108 (90 Base) MCG/ACT INHALATION AEROSOL SOLUTION 2 puffs four times a day PRN cough ALBUTEROL SULFATE 92109065864 No Longer Active Piotr Daley DO Active NYSTATIN-TRIAMCINOLONE 714150-4.1 UNIT/GM-% EXTERNAL CREAM Apply to area BID NYSTATIN-TRIAMCINOLONE 41578127939 No Longer Active Alena Chavira VEHICLE OPERATOR TECHNICIAN Active PHISOHEX 3 % LIQD Use Directed HEXACHLOROPHENE 65016344511 No Longer Active Sandra [place] Active AZITHROMYCIN 250 MG ORAL TABLET 2 po qd x 1 day, then 1 po qd x 4 days 10/21 AZITHROMYCIN 57956529777 No Longer Active Katrina Rinaldi MD PhD Active AZITHROMYCIN 250 MG ORAL TABLET 2 po qd x 1 day, then 1 po qd x 4 days 10/16 AZITHROMYCIN 49705925640 No Longer Active Piotr Daley DO Active AZITHROMYCIN 500 MG INTRAVENOUS SOLUTION RECONSTITUTED 1 po q day AZITHROMYCIN 25251169565 No Longer Active Piotr Daley DO Active NYSTATIN-TRIAMCINOLONE 025308-6.1 UNIT/GM-% EXTERNAL CREAM apply bid NYSTATIN-TRIAMCINOLONE 39077516993 No Longer Active Piotr Daley DO Active IBUPROFEN 800 MG ORAL TABLET 1 po q 8 hours prn pain sparinly IBUPROFEN 98070501315 No Longer Active Piotr Daley DO Active VITAMIN D3 5000 UNIT ORAL CAPSULE 1 po daily CHOLECALCIFEROL 89344727367 Active Piotr Daley DO Active IBUPROFEN 800 MG ORAL TABLET 1 po q 8 hours prn pain sparinly IBUPROFEN 800 MG ORAL TABLET 234793 IBUPROFEN Inactive NYSTATIN-TRIAMCINOLONE 849191-3.1 UNIT/GM-% EXTERNAL CREAM apply bid NYSTATIN-TRIAMCINOLONE 604036-1.1 UNIT/GM-% EXTERNAL CREAM 2949873 NYSTATIN-TRIAMCINOLONE Inactive AZITHROMYCIN 500 MG INTRAVENOUS SOLUTION RECONSTITUTED 1 po q day AZITHROMYCIN 500 MG INTRAVENOUS SOLUTION RECONSTITUTED 90031988406 AZITHROMYCIN Inactive VENTOLIN HFA 108 (90 Base) MCG/ACT INHALATION AEROSOL SOLUTION 2 puffs four times a day PRN cough VENTOLIN HFA 108 (90 Base) MCG/ ACT INHALATION AEROSOL SOLUTION ALBUTEROL SULFATE Inactive LISINOPRIL 10 MG ORAL TABLET 1/2-1 tab po every other day LISINOPRIL 10 MG ORAL TABLET 572408 LISINOPRIL Inactive TUSSIONEX PENNKINETIC ER 10-8 MG/5ML ORAL SUSPENSION EXTENDED RELEASE 5ml po q12hr PRN Cough TUSSIONEX PENNKINETIC ER 10-8 MG/5ML ORAL SUSPENSION EXTENDED RELEASE HYDROCOD POLST-CHLORPHEN POLST Inactive PROMETHAZINE HCL 25 MG ORAL TABLET 1 four times a day as needed for nausea/ vomiting PROMETHAZINE HCL 25 MG ORAL TABLET 941910 PROMETHAZINE HCL Inactive PREDNISONE 20 MG ORAL TABLET 1 tablet twice daily for 2 days, then 1 tablet once daily for 2 days PREDNISONE 20 MG ORAL TABLET 823831 PREDNISONE Inactive WARFARIN SODIUM 4 MG ORAL TABLET 1 tab every evening WARFARIN SODIUM 4 MG ORAL TABLET 042496 WARFARIN SODIUM Inactive LOMOTIL 2.5-0.025 MG ORAL TABLET 1 to 2 four times a day as needed for diarrhea LOMOTIL 2.5-0.025 MG ORAL TABLET 1671658 DIPHENOXYLATE-ATROPINE Inactive IBUPROFEN 800 MG ORAL TABLET 1 tab every 8 hours as needed 07/12 IBUPROFEN 800 MG ORAL TABLET 298770 IBUPROFEN Inactive PREDNISONE 20 MG ORAL TABLET 2 tablets today, then 1 tablet days 2 through 4 PREDNISONE 20 MG ORAL TABLET 702004 PREDNISONE Inactive GABAPENTIN 300 MG ORAL CAPSULE 1 po q hs for nerve pain GABAPENTIN 300 MG ORAL CAPSULE 066412 GABAPENTIN Inactive TRAMADOL HCL 50 MG ORAL TABLET 1 po tid with ES Tylenol TRAMADOL HCL 50 MG ORAL TABLET 019913 TRAMADOL HCL Inactive PROAIR HFA 108 (90 BASE) MCG/ACT INHALATION AEROSOL SOLUTION 1-2 puffs four times a day as needed PROAIR HFA 108 (90 BASE) MCG/ACT INHALATION AEROSOL SOLUTION ALBUTEROL SULFATE Inactive PREDNISONE 20 MG ORAL TABLET two tabs by mouth today, then one tab by mouth days two and three PREDNISONE 20 MG ORAL TABLET 890205 PREDNISONE Inactive TESSALON PERLES 100 MG ORAL CAPSULE 1-2 tablet by mouth 3 times daily 04/16 TESSALON PERLES 100 MG ORAL CAPSULE 398368 BENZONATATE Inactive PREDNISONE 10 MG ORAL TABLET 1 tablet by mouth daily PREDNISONE 10 MG ORAL TABLET 223463 PREDNISONE Inactive NYSTATIN 169657 UNIT/GM EXTERNAL CREAM Apply to rash 2-3 times a day and may repeat as needed NYSTATIN 578057 UNIT/GM EXTERNAL CREAM 108162 NYSTATIN Inactive TRIAMCINOLONE ACETONIDE 0.1 % EXTERNAL CREAM apply bid sparingly to rash 2017 TRIAMCINOLONE ACETONIDE 0.1 % EXTERNAL CREAM 2677520 TRIAMCINOLONE ACETONIDE Inactive AZITHROMYCIN 250 MG ORAL TABLET 2 po qd x 1 day, then 1 po qd x 4 days 10/16 AZITHROMYCIN 250 MG ORAL TABLET 692175 AZITHROMYCIN Inactive AZITHROMYCIN 250 MG ORAL TABLET 2 po qd x 1 day, then 1 po qd x 4 days 10/21 AZITHROMYCIN 250 MG ORAL TABLET 192324 AZITHROMYCIN Inactive NYSTATIN-TRIAMCINOLONE 969763-9.1 UNIT/GM-% EXTERNAL CREAM Apply to area BID NYSTATIN-TRIAMCINOLONE 558489-7.1 UNIT/GM-% EXTERNAL CREAM 2705137 NYSTATIN-TRIAMCINOLONE Inactive AZITHROMYCIN 250 MG ORAL TABLET 2 po qd x 1 day, then 1 po qd x 4 days 05/07 AZITHROMYCIN 250 MG ORAL TABLET 258430 AZITHROMYCIN Inactive AZITHROMYCIN 250 MG ORAL TABLET 2 po qd x 1 day, then 1 po qd x 4 days 10/13 AZITHROMYCIN 250 MG ORAL TABLET 572050 AZITHROMYCIN Inactive AZITHROMYCIN 250 MG ORAL TABLET 2 po qd x 1 day, then 1 po qd x 4 days 07/12 AZITHROMYCIN 250 MG ORAL TABLET 229293 AZITHROMYCIN Inactive PREDNISONE 20 MG ORAL TABLET 2 tabs daily for 3 days, 1 tab daily for 3 days, 1/2 tab daily for 2 days PREDNISONE 20 MG ORAL TABLET 668197 PREDNISONE Inactive DOXYCYCLINE HYCLATE 100 MG ORAL CAPSULE 1 cap by mouth BID x10 days DOXYCYCLINE HYCLATE 100 MG ORAL CAPSULE 5345488 DOXYCYCLINE HYCLATE Inactive ZITHROMAX 250 MG ORAL TABLET Take two (2 ) tablets day one, then one (1) tablet a day for four (4) more days ZITHROMAX 250 MG ORAL TABLET 430250 AZITHROMYCIN Inactive Advance Directives Directive Description Start [...] Ag - Chemistry sodium, serum 141 mmol/L 240-687 0834/12/17 carbon dioxide, venous blood 30.9 mmol/L 21.0-32.0 [...] 0-29 Encounters Code Encounter Date Provider Facility CPT-58154 85676-Nui Vst-Est Level IV 08:51:04 HAND TRUCKER Piotr Wilson [facility] CPT-86495 29885-Thc Vst-Est Level III 14:29:05 CDT Piotr Wilson [facility] CPT-66967 Level 3 Est. Patient 15:59:25 HAND TRUCKER Piotr Wilson [facility] CPT-47469 Level 3 Est. Patient 12:33:59 HAND TRUCKER Piotr Wilson [facility] CPT-78880 Level 3 Est. Patient 15:56:17 HAND TRUCKER Piotr Daley [facility] CPT-49912 Level 3 Est. Patient 10:34:54 HAND TRUCKER Piotr Wilson [facility] CPT-96473 Level 3 Est. Patient 17:10:19 CDT Nella Harris APRN [facility] CPT-22280 Level 3 Est. Patient 10:48:17 HAND TRUCKER Matthew Rangel MD [facility] CPT-68592 Level 4 Est. Patient 17:15:07 HAND TRUCKER Piotr Daley [facility] CPT-19431 Level 3 Est. Patient 12:46:13 HAND TRUCKER Piotr Daley [facility] CPT-70396 Level 3 Est. Patient 15:14:31 HAND TRUCKER Piotr Daley [facility] CPT-51972 Level 3 Est. Patient 09:20:13 HAND TRUCKER Piotr Daley [facility] CPT-41760 Level 3 Est. Patient 09:49:40 CDT Piotr Daley [facility] CPT-64739 Level 3 Est. Patient 16:28:11 CDT Piotr Daley [facility] CPT-32985 Level 3 Est. Patient 12:41:58 HAND TRUCKER Piotr Daley [facility] CPT-66052 Level 3 Est. Patient 09:21:24 CDT Piotr Daley [facility] CPT-97185 Level 3 Est. Patient 09:21:11 CDT Piotr Daley [facility] CPT-17281 Level 3 Est. Patient 11:16:29 HAND TRUCKER Piotr Daley [facility] CPT-11290 Level 3 Est. Patient 18:40:19 HAND TRUCKER Piotr Daley [facility] CPT-98009 Level 3 Est. Patient 19:30:50 CDT Piotr Wilson [facility] CPT-73219 Level 3 Est. Patient 22:06:44 CDT Katrina Rinaldi MD PhD [facility] CPT-10859 Level 3 Est. Patient 14:20:00 CDT Piotr Daley [facility] CPT-93270 Level 3 Est. Patient 14:15:22 HAND TRUCKER Piotr Daley [facility] CPT-56145 Level 3 Est. Patient 20:19:57 HAND TRUCKER Piotr Daley [facility] CPT-62490 Level 3 Est. Patient 16:44:32 CDT Piotr Daley [facility] CPT-11447 Level 3 Est. Patient 08:48:46 HAND TRUCKER Piotr Daley [facility] CPT-35488 Level 3 Est. Patient 21:01:21 CDT Piotr Daley [facility] Procedures Code Procedure Name Date Entry Date Standard Description CPT-Cryo Cryotherapy 08:51:04 [facility] CPT-G0439 Subsequent Annual Wellness Exam 08:51:04 [facility] CPT-59834 Sacroiliac jt < 3V - XRAY USE ONLY 16:45:19 [employer]ER 05/09 CPT-62617 LS spine comp w obliques - XRAY USE ONLY 14:52:26 [facility] CPT-58736 Chest, 2 views 12:55:58 [facility] CPT-G0439 Subsequent Annual Wellness Exam 10:34:52 [employer] CPT-47900 BMP - LAB USE ONLY 17:19:11 [employer] CPT-04172 PT/INR - LAB USE ONLY 17:19:10 [facility] CPT-29747 Venipuncture Draw Fee 17:19:10 [employer] CPT-77388 PT/INR - LAB USE ONLY 08:12:25 [employer] CPT-50223 Venipuncture Draw Fee 08:12:24 [employer] CPT-83090 Venipuncture Draw Fee 11:31:07 [employer]ER CPT-87353 TPSA - LAB USE ONLY 11:31:07 [employer]ER CPT-98851 PT/INR - LAB USE ONLY 11:31:07 [employer]ER CPT-G0439 Subsequent Annual Wellness Exam 09:59:29 [employer]ER CPT-14146 Creatinine - LAB USE ONLY 14:37:55 HAND TRUCKER CPT-78898 PT/INR - LAB USE ONLY 14:37:55 [employer] TR[employer]ER CPT-96283 Venipuncture Draw Fee 14:37:55 [employer]ER CPT-29819 LS spine comp w obliques - XRAY USE ONLY 12:59:25 [employer]ER CPT-20198 PT/INR - LAB USE ONLY 13:49:20 CDT CPT-66605 Venipuncture Draw Fee 13:49:19 CDT CPT-65502 PT/INR - LAB USE ONLY 15:48:49 CDT CPT-89101 Venipuncture Draw Fee 15:48:49 CDT CPT-88501 Venipuncture Draw Fee 11:31:59 CDT CPT-02190 PT/INR - LAB USE ONLY 11:31:59 CDT CPT-57212 Venipuncture Draw Fee 13:29:15 CDT CPT-31760 Thoracolumbar AP/Lat 15:19:19 [employer] TR[employer]ER CPT-G0438 Initial Annual Wellness Exam 12:18:54 HAND TR[employer]ER CPT-51413 Knee 3V 09:57:38 CDT CPT-OV Office Visit 15:45:01 HAND TRUCKER CPT-22786 Abd compl w upright 17:10:25 CDT
--- OUTSIDE RECORDS SUMMARY | 2018-07-18 07:25 | XMS REPORT | Clinical Summary ---
Author Author Admin, Isidra Organization [email or web address] Address Unknown Phone Unavailable Allergies, Adverse Reactions, [...] Coronary atherosclerosis of unspecified type of vessel, [place] or graft Back pain, thoracic region, left [...] pruritic disorder Wellness exam V70.0 Active Emelyn Norris Routine general medical examination at a health care facility Bronchitis-Acute 466.0 Resolved Emelyn Norris Acute bronchitis Dyspnea 786.09 Resolved Emelyn Norris Other dyspnea and respiratory abnormality Sacroiliitis, right 720.2 Active Emelyn Norris Sacroiliitis, not elsewhere classified Pes anserinus bursitis, [...] 702.0 Active Piotr Daley DO Actinic keratosis HEALTH MAINTENANCE EXAM ICD-V70.0 Inactive Katrina Rinaldi MD PhD BRONCHITIS-ACUTE ICD-466.0 Inactive Piotr Daley DO SCREENING, COLON CANCER ICD-V76.51 Inactive Katrina Rinaldi MD PhD BRONCHITIS-ACUTE ICD-466.0 Inactive Piotr Daley DO FLANK PAIN, RIGHT ICD-789.09 Inactive Katrina Rinaldi MD PhD Seborrheic keratosis ICD-702.19 Inactive Sirisha Chen LPN Bronchitis-Acute ICD-466.0 Inactive Piotr Daley DO Leg pain, right ICD-729.5 Inactive Sirisha Chen CLINICAL NURSING ASSISTANT Right leg pain ICD-729.5 Inactive Sirisha Chen CLINICAL NURSING ASSISTANT Bronchitis-Acute ICD-466.0 Inactive Sirisha Chen CLINICAL NURSING ASSISTANT Knee pain, left ICD-719.46 Inactive Sirisha Chen CLINICAL NURSING ASSISTANT Actinic keratoses ICD-702.0 Inactive Sirisha Chen CLINICAL NURSING ASSISTANT Back pain, thoracic region, left ICD-724.1 Inactive Piotr Daley DO Thoracic back pain ICD-724.5 Inactive Sirisha Chen CLINICAL NURSING ASSISTANT Back pain lumbar ICD-724.2 Inactive Sirisha Chen CLINICAL NURSING ASSISTANT Insect bite ICD-919.4 Inactive Sirisha Chen CLINICAL NURSING ASSISTANT Pruritus ICD-698.9 Inactive Sirisha Chen CLINICAL NURSING ASSISTANT 04/09 DEEP VENOUS THROMBOPHLEBITIS, LEG, 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 Inactive Sirisha Chen CLINICAL NURSING ASSISTANT DEEP VENOUS THROMBOPHLEBITIS, LEG, 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 Inactive Sirisha Chen CLINICAL NURSING ASSISTANT Pes anserinus bursitis, right ICD-726.61 Inactive Piotr Daley DO Bronchitis-Acute ICD-466.0 Inactive Sirisha Chen CLINICAL NURSING ASSISTANT Dyspnea ICD-786.09 Inactive Sirisha Chen CLINICAL NURSING ASSISTANT 05/09 Medication List Medication Instructions Start Date Stop Date Generic Name NDC Status Provider Patient Instruction TRIAMCINOLONE ACETONIDE 0.1 % EXTERNAL CREAM apply bid sparingly to rash 2017 TRIAMCINOLONE ACETONIDE 31764117839 No Longer Active Piotr Daley DO Active NYSTATIN 546975 UNIT/GM EXTERNAL CREAM Apply to rash 2-3 times a day and may repeat as needed NYSTATIN 96010251803 No Longer Active Piotr Daley DO Active WARFARIN SODIUM 4 MG ORAL TABLET 1 tablet by mouth daily WARFARIN SODIUM 39857324636 Active Piotr Daley DO Active MELOXICAM 15 MG ORAL TABLET 1 po q day for pain with food MELOXICAM 56043875869 Active Piotr Daley DO Active PREDNISONE 10 MG ORAL TABLET 1 tablet by mouth daily PREDNISONE 34159274162 No Longer Active Emelyn Norris Active TESSALON PERLES 100 MG ORAL CAPSULE 1-2 tablet by mouth 3 times daily 04/16 BENZONATATE 20987857005 No Longer Active Emelyn Norris Active PREDNISONE 20 MG ORAL TABLET two tabs by mouth today, then one tab by mouth days two and three PREDNISONE 72488203122 No Longer Active Piotr Daley DO Active CYCLOBENZAPRINE HCL 10 MG ORAL TABLET 1 tablet by mouth three times daily as needed for muscle spasm/pain CYCLOBENZAPRINE HCL 26385271363 Active Sirisha Chen CLINICAL NURSING ASSISTANT Active ZITHROMAX 250 MG ORAL TABLET Take two (2 ) tablets day one, then one (1) tablet a day for four (4) more days AZITHROMYCIN 21252622226 No Longer Active Piotr Daley DO Active PROAIR HFA 108 (90 BASE) MCG/ACT INHALATION AEROSOL SOLUTION 1-2 puffs four times a day as needed ALBUTEROL SULFATE 13639422816 No Longer Active Emelyn Norris Active DOXYCYCLINE HYCLATE 100 MG ORAL CAPSULE 1 cap by mouth BID x10 days DOXYCYCLINE HYCLATE 03514348283 No Longer Active Nella Harris APRN Active PREDNISONE 20 MG ORAL TABLET 2 tabs daily for 3 days, 1 tab daily for 3 days, 1/2 tab daily for 2 days PREDNISONE 85336350773 No Longer Active Matthew Rangel MD Active TRAMADOL HCL 50 MG ORAL TABLET 1 po tid with ES Tylenol TRAMADOL HCL 49419294918 No Longer Active Matthew Rangel MD Active GABAPENTIN 300 MG ORAL CAPSULE 1 po q hs for nerve pain GABAPENTIN 88801233770 No Longer Active Matthew Rangel MD Active PREDNISONE 20 MG ORAL TABLET 2 tablets today, then 1 tablet days 2 through 4 PREDNISONE 20797132358 No Longer Active Piotr Daley DO Active AZITHROMYCIN 250 MG ORAL TABLET 2 po qd x 1 day, then 1 po qd x 4 days 07/12 AZITHROMYCIN 59972202320 No Longer Active Piotr Daley DO Active IBUPROFEN 800 MG ORAL TABLET 1 tab every 8 hours as needed 07/12 IBUPROFEN 83444294575 No Longer Active Piotr Daley DO Active LOMOTIL 2.5-0.025 MG ORAL TABLET 1 to 2 four times a day as needed for diarrhea DIPHENOXYLATE-ATROPINE 21070300875 No Longer Active Piotr Daley DO Active WARFARIN SODIUM 4 MG ORAL TABLET 1 tab every evening WARFARIN SODIUM 29322221431 No Longer Active Piotr Daley DO Active PREDNISONE 20 MG ORAL TABLET 1 tablet twice daily for 2 days, then 1 tablet once daily for 2 days PREDNISONE 72687374623 No Longer Active Piotr Daley DO Active PROMETHAZINE HCL 25 MG ORAL TABLET 1 four times a day as needed for nausea/ vomiting PROMETHAZINE HCL 50992066581 No Longer Active Piotr Daley DO Active TUSSIONEX PENNKINETIC ER 10-8 MG/5ML ORAL SUSPENSION EXTENDED RELEASE 5ml po q12hr PRN Cough HYDROCOD POLST-CHLORPHEN POLST 94417186722 No Longer Active Piotr Daley DO Active AZITHROMYCIN 250 MG ORAL TABLET 2 po qd x 1 day, then 1 po qd x 4 days 10/13 AZITHROMYCIN 91366091341 No Longer Active Piotr Daley DO Active AZITHROMYCIN 250 MG ORAL TABLET 2 po qd x 1 day, then 1 po qd x 4 days 05/07 AZITHROMYCIN 29531475122 No Longer Active Piotr Daley DO Active LISINOPRIL-HYDROCHLOROTHIAZIDE 10-12.5 MG ORAL TABLET 1 tab by mouth daily LISINOPRIL-HYDROCHLOROTHIAZIDE 34494433177 Active Sirisha Finneganughn CLINICAL NURSING ASSISTANT Active LISINOPRIL 10 MG ORAL TABLET 1/2-1 tab po every other day LISINOPRIL 42035830462 No Longer Active Piotr Daley DO Active VENTOLIN HFA 108 (90 Base) MCG/ACT INHALATION AEROSOL SOLUTION 2 puffs four times a day PRN cough ALBUTEROL SULFATE 97851997689 No Longer Active Piotr Daley DO Active NYSTATIN-TRIAMCINOLONE 962613-0.1 UNIT/GM-% EXTERNAL CREAM Apply to area BID NYSTATIN-TRIAMCINOLONE 36194092649 No Longer Active Alena Chavira CLINICAL NURSING ASSISTANT Active PHISOHEX 3 % LIQD Use Directed HEXACHLOROPHENE 63076236401 No Longer Active Sandra Picacho Active AZITHROMYCIN 250 MG ORAL TABLET 2 po qd x 1 day, then 1 po qd x 4 days 10/21 AZITHROMYCIN 65449693447 No Longer Active Katrina Rinaldi MD PhD Active AZITHROMYCIN 250 MG ORAL TABLET 2 po qd x 1 day, then 1 po qd x 4 days 10/16 AZITHROMYCIN 73121119287 No Longer Active Piotr Daley DO Active AZITHROMYCIN 500 MG INTRAVENOUS SOLUTION RECONSTITUTED 1 po q day AZITHROMYCIN 16081384233 No Longer Active Piotr Daley DO Active NYSTATIN-TRIAMCINOLONE 068855-7.1 UNIT/GM-% EXTERNAL CREAM apply bid NYSTATIN-TRIAMCINOLONE 49623832116 No Longer Active Piotr Daley DO Active IBUPROFEN 800 MG ORAL TABLET 1 po q 8 hours prn pain sparinly IBUPROFEN 90428667730 No Longer Active Piotr Daley DO Active VITAMIN D3 5000 UNIT ORAL CAPSULE 1 po daily CHOLECALCIFEROL 99778279103 Active Piotr Daley DO Active IBUPROFEN 800 MG ORAL TABLET 1 po q 8 hours prn pain sparinly IBUPROFEN 800 MG ORAL TABLET 885665 IBUPROFEN Inactive NYSTATIN-TRIAMCINOLONE 104515-1.1 UNIT/GM-% EXTERNAL CREAM apply bid NYSTATIN-TRIAMCINOLONE 194928-3.1 UNIT/GM-% EXTERNAL CREAM 2675930 NYSTATIN-TRIAMCINOLONE Inactive AZITHROMYCIN 500 MG INTRAVENOUS SOLUTION RECONSTITUTED 1 po q day AZITHROMYCIN 500 MG INTRAVENOUS SOLUTION RECONSTITUTED 70128635205 AZITHROMYCIN Inactive VENTOLIN HFA 108 (90 Base) MCG/ACT INHALATION AEROSOL SOLUTION 2 puffs four times a day PRN cough VENTOLIN HFA 108 (90 Base) MCG/ ACT INHALATION AEROSOL SOLUTION ALBUTEROL SULFATE Inactive LISINOPRIL 10 MG ORAL TABLET 1/2-1 tab po every other day LISINOPRIL 10 MG ORAL TABLET 906986 LISINOPRIL Inactive TUSSIONEX PENNKINETIC ER 10-8 MG/5ML ORAL SUSPENSION EXTENDED RELEASE 5ml po q12hr PRN Cough TUSSIONEX PENNKINETIC ER 10-8 MG/5ML ORAL SUSPENSION EXTENDED RELEASE HYDROCOD POLST-CHLORPHEN POLST Inactive PROMETHAZINE HCL 25 MG ORAL TABLET 1 four times a day as needed for nausea/ vomiting PROMETHAZINE HCL 25 MG ORAL TABLET 892089 PROMETHAZINE HCL Inactive PREDNISONE 20 MG ORAL TABLET 1 tablet twice daily for 2 days, then 1 tablet once daily for 2 days PREDNISONE 20 MG ORAL TABLET 772551 PREDNISONE Inactive WARFARIN SODIUM 4 MG ORAL TABLET 1 tab every evening WARFARIN SODIUM 4 MG ORAL TABLET 170256 WARFARIN SODIUM Inactive LOMOTIL 2.5-0.025 MG ORAL TABLET 1 to 2 four times a day as needed for diarrhea LOMOTIL 2.5-0.025 MG ORAL TABLET 7843778 DIPHENOXYLATE-ATROPINE Inactive IBUPROFEN 800 MG ORAL TABLET 1 tab every 8 hours as needed 07/12 IBUPROFEN 800 MG ORAL TABLET 127355 IBUPROFEN Inactive PREDNISONE 20 MG ORAL TABLET 2 tablets today, then 1 tablet days 2 through 4 PREDNISONE 20 MG ORAL TABLET 828400 PREDNISONE Inactive GABAPENTIN 300 MG ORAL CAPSULE 1 po q hs for nerve pain GABAPENTIN 300 MG ORAL CAPSULE 026181 GABAPENTIN Inactive TRAMADOL HCL 50 MG ORAL TABLET 1 po tid with ES Tylenol TRAMADOL HCL 50 MG ORAL TABLET 504774 TRAMADOL HCL Inactive PROAIR HFA 108 (90 BASE) MCG/ACT INHALATION AEROSOL SOLUTION 1-2 puffs four times a day as needed PROAIR HFA 108 (90 BASE) MCG/ACT INHALATION AEROSOL SOLUTION ALBUTEROL SULFATE Inactive PREDNISONE 20 MG ORAL TABLET two tabs by mouth today, then one tab by mouth days two and three PREDNISONE 20 MG ORAL TABLET 174795 PREDNISONE Inactive TESSALON PERLES 100 MG ORAL CAPSULE 1-2 tablet by mouth 3 times daily 04/16 TESSALON PERLES 100 MG ORAL CAPSULE 582902 BENZONATATE Inactive PREDNISONE 10 MG ORAL TABLET 1 tablet by mouth daily PREDNISONE 10 MG ORAL TABLET 343680 PREDNISONE Inactive NYSTATIN 803848 UNIT/GM EXTERNAL CREAM Apply to rash 2-3 times a day and may repeat as needed NYSTATIN 590972 UNIT/GM EXTERNAL CREAM 592210 NYSTATIN Inactive TRIAMCINOLONE ACETONIDE 0.1 % EXTERNAL CREAM apply bid sparingly to rash 2017 TRIAMCINOLONE ACETONIDE 0.1 % EXTERNAL CREAM 7944330 TRIAMCINOLONE ACETONIDE Inactive AZITHROMYCIN 250 MG ORAL TABLET 2 po qd x 1 day, then 1 po qd x 4 days 10/16 AZITHROMYCIN 250 MG ORAL TABLET 604081 AZITHROMYCIN Inactive AZITHROMYCIN 250 MG ORAL TABLET 2 po qd x 1 day, then 1 po qd x 4 days 10/21 AZITHROMYCIN 250 MG ORAL TABLET 880803 AZITHROMYCIN Inactive NYSTATIN-TRIAMCINOLONE 226450-6.1 UNIT/GM-% EXTERNAL CREAM Apply to area BID NYSTATIN-TRIAMCINOLONE 030984-6.1 UNIT/GM-% EXTERNAL CREAM 1587789 NYSTATIN-TRIAMCINOLONE Inactive AZITHROMYCIN 250 MG ORAL TABLET 2 po qd x 1 day, then 1 po qd x 4 days 05/07 AZITHROMYCIN 250 MG ORAL TABLET 226926 AZITHROMYCIN Inactive AZITHROMYCIN 250 MG ORAL TABLET 2 po qd x 1 day, then 1 po qd x 4 days 10/13 AZITHROMYCIN 250 MG ORAL TABLET 238037 AZITHROMYCIN Inactive AZITHROMYCIN 250 MG ORAL TABLET 2 po qd x 1 day, then 1 po qd x 4 days 07/12 AZITHROMYCIN 250 MG ORAL TABLET 013773 AZITHROMYCIN Inactive PREDNISONE 20 MG ORAL TABLET 2 tabs daily for 3 days, 1 tab daily for 3 days, 1/2 tab daily for 2 days PREDNISONE 20 MG ORAL TABLET 229949 PREDNISONE Inactive DOXYCYCLINE HYCLATE 100 MG ORAL CAPSULE 1 cap by mouth BID x10 days DOXYCYCLINE HYCLATE 100 MG ORAL CAPSULE 0365666 DOXYCYCLINE HYCLATE Inactive ZITHROMAX 250 MG ORAL TABLET Take two (2 ) tablets day one, then one (1) tablet a day for four (4) more days ZITHROMAX 250 MG ORAL TABLET 136379 AZITHROMYCIN Inactive Advance Directives Directive Description Start [...] aspartate aminotransferase (SGOT), serum 19 U/L 15-37 prostate specific antigen 0.03 ng/mL 0.00-4.00 blood glucose 100 mg/dL 65-95 chloride, serum 102 mmol/L 98-107 potassium, serum 4.2 mmol/L 3.5-5.2 carbon dioxide, venous blood 30.9 mmol/L 21.0-32.0 sodium, serum 141 mmol/L 136-145 Lab Report: Comp. Metabolic Panel, CBC, Prostatic [...] Ag - Lab Alkaline phosphatase 76 50-136 Encounters Code Encounter Date Provider Facility CPT-16659 [id number] Vst-Est Level IV 08:51:04 REMOTE OPERATIONS PRODUCER Piotr Daley [facility] CPT-96768 [id number] Vst-Est Level III 14:29:05 CDT Piotr Daley [facility] CPT-38957 Level 3 Est. Patient 15:59:25 REMOTE OPERATIONS PRODUCER Piotr Daley [facility] CPT-03349 Level 3 Est. Patient 12:33:59 REMOTE OPERATIONS PRODUCER Piotr Daley [facility] CPT-54341 Level 3 Est. Patient 15:56:17 REMOTE OPERATIONS PRODUCER Piotr Daley [facility] CPT-49849 Level 3 Est. Patient 10:34:54 REMOTE OPERATIONS PRODUCER Piotr Daley DO [facility] CPT-69476 Level 3 Est. Patient 17:10:19 CDT Nella Harris APRN [facility] CPT-75372 Level 3 Est. Patient 10:48:17 REMOTE OPERATIONS PRODUCER Matthew Rangel MD [facility] CPT-23801 Level 4 Est. Patient 17:15:07 REMOTE OPERATIONS PRODUCER Piotr Daley [facility] CPT-11958 Level 3 Est. Patient 12:46:13 REMOTE OPERATIONS PRODUCER Piotr Daley [facility] CPT-90589 Level 3 Est. Patient 15:14:31 REMOTE OPERATIONS PRODUCER Piotr Daley [facility] CPT-58659 Level 3 Est. Patient 09:20:13 REMOTE OPERATIONS PRODUCER Piotr Daley [facility] CPT-95615 Level 3 Est. Patient 09:49:40 CDT Piotr Daley [facility] CPT-33949 Level 3 Est. Patient 16:28:11 CDT Piotr Katie Edi [facility] CPT-86587 Level 3 Est. Patient 12:41:58 REMOTE OPERATIONS PRODUCER Piotr Daley [facility] CPT-69180 Level 3 Est. Patient 09:21:24 CDT Piotr Daley [facility] CPT-41884 Level 3 Est. Patient 09:21:11 CDT Piotr Daley [facility] CPT-19648 Level 3 Est. Patient 11:16:29 REMOTE OPERATIONS PRODUCER Piotr Daley [facility] CPT-49550 Level 3 Est. Patient 18:40:19 REMOTE OPERATIONS PRODUCER Piotr Wilson Edi [facility] CPT-49753 Level 3 Est. Patient 19:30:50 CDT Piotr Wilson Edi [facility] CPT-58919 Level 3 Est. Patient 22:06:44 CDT Katrina Rinaldi MD PhD [facility] CPT-47933 Level 3 Est. Patient 14:20:00 CDT Piotr Daley [facility] CPT-41717 Level 3 Est. Patient 14:15:22 REMOTE OPERATIONS PRODUCER Piotr Daley [facility] CPT-82987 Level 3 Est. Patient 20:19:57 REMOTE OPERATIONS PRODUCER Piotr Daley [facility] CPT-57177 Level 3 Est. Patient 16:44:32 CDT Piotr Daley [facility] CPT-64753 Level 3 Est. Patient 08:48:46 REMOTE OPERATIONS PRODUCER Piotr Daley [facility] CPT-75151 Level 3 Est. Patient 21:01:21 CDT Piotr Daley [facility] Procedures Code Procedure Name Date Entry Date Standard Description CPT-Cryo Cryotherapy 08:51:04 REMOTE OPERATIONS PRODUCER CPT-G0439 Subsequent Annual Wellness Exam 08:51:04 REMOTE OPERATIONS PRODUCER CPT-58182 Sacroiliac jt < 3V - XRAY USE ONLY 16:45:19 REMOTE OPERATIONS PRODUCER 05/09 CPT-20504 LS spine comp w obliques - XRAY USE ONLY 14:52:26 [facility] CPT-25054 Chest, 2 views 12:55:58 REMOTE OPERATIONS PRODUCER CPT-G0439 Subsequent Annual Wellness Exam 10:34:52 REMOTE OPERATIONS [employer]ODUCER CPT-45373 BMP - LAB USE ONLY 17:19:11 [employer]OTE [employer]ATIONS [employer]UCER CPT-95385 PT/INR - LAB USE ONLY 17:19:10 [facility] CPT-02847 Venipuncture Draw Fee 17:19:10 [facility] CPT-99548 PT/INR - LAB USE ONLY 08:12:25 [employer] CPT-67401 Venipuncture Draw Fee 08:12:24 REMOTE [employer]PERATIONS [employer]ODUCER CPT-14988 Venipuncture Draw Fee 11:31:07 REMOTE OPERATIONS PRODUCER CPT-31553 TPSA - LAB USE ONLY 11:31:07 REMOTE OPERATIONS PRODUCER CPT-85923 PT/INR - LAB USE ONLY 11:31:07 REMOTE OPERATIONS PRODUCER CPT-G0439 Subsequent Annual Wellness Exam 09:59:29 REMOTE OPERATIONS PRODUCER CPT-03029 Creatinine - LAB USE ONLY 14:37:55 REMOTE [employer]ATIONS [employer]ODUCER CPT-47879 PT/INR - LAB USE ONLY 14:37:55 REMOTE [employer]PERATIONS PRODUCER CPT-29707 Venipuncture Draw Fee 14:37:55 REMOTE OPERATIONS PRODUCER CPT-25544 LS spine comp w obliques - XRAY USE ONLY 12:59:25 REMOTE OPERATIONS PRODUCER CPT-99682 PT/INR - LAB USE ONLY 13:49:20 CDT CPT-89488 Venipuncture Draw Fee 13:49:19 CDT CPT-02774 PT/INR - LAB USE ONLY 15:48:49 CDT CPT-93449 Venipuncture Draw Fee 15:48:49 CDT CPT-20374 Venipuncture Draw Fee 11:31:59 CDT CPT-88666 PT/INR - LAB USE ONLY 11:31:59 CDT CPT-55246 Venipuncture Draw Fee 13:29:15 CDT CPT-48033 Thoracolumbar AP/Lat 15:19:19 REMOTE [employer]ATIONS [employer]UCER CPT-G0438 Initial Annual Wellness Exam 12:18:54 REMOTE OPERATIONS PRODUCER CPT-27068 Knee 3V 09:57:38 CDT CPT-OV Office Visit 15:45:01 REMOTE OPERATIONS PRODUCER CPT-61303 Abd compl w upright 17:10:25 CDT
[2018-07-18] MEDS ORDERED: LIDOCAINE PF 2% 5 ML (XYLOCAINE) VIAL ONE (07:26)
[2018-07-18] MEDS ORDERED: proPOfol 200 MG/20 ML (DIPRIVAN) VIAL IV ONE (07:26)
[2018-07-18] MEDS ORDERED: ROCURONIUM 10 MG/ML 5 ML SYRINGE IV ONE (07:26)
[2018-07-18] MEDS ORDERED: ONDANSETRON 4 MG/2 ML (SDV) Z0FRAN ONE (07:26)
--- OUTSIDE RECORDS SUMMARY | 2018-07-18 07:26 | XMS REPORT | Clinical Summary ---
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 Personal history of malignant neoplasm of prostate Coronary artery disease 414.00 Active Alina Meyers APRN Coronary atherosclerosis of unspecified type of vessel, sioux or graft Back pain, thoracic region, left [...] LEG, 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 Inactive Sirisha Chen LPN Seborrheic keratosis ICD-702.19 Inactive Sirisha Chen PRODUCTION SANITIZER Bronchitis-Acute ICD-466.0 Inactive Piotr Daley DO Leg pain, right ICD-729.5 Inactive Sirisha Chen PRODUCTION SANITIZER Right leg pain ICD-729.5 Inactive Sirisha Chen PRODUCTION SANITIZER Bronchitis-Acute ICD-466.0 Inactive Sirisha Chen PRODUCTION SANITIZER Knee pain, left ICD-719.46 Inactive Sirisha Chen PRODUCTION SANITIZER Actinic keratoses ICD-702.0 Inactive Sirisha Chen PRODUCTION SANITIZER Back pain, thoracic region, left ICD-724.1 Inactive Piotr Daley DO Thoracic back pain ICD-724.5 Inactive Sirisha Chen PRODUCTION SANITIZER Back pain lumbar ICD-724.2 Inactive Sirisha Chen PRODUCTION SANITIZER Insect bite ICD-919.4 Inactive Sirisha Chen PRODUCTION SANITIZER Pruritus ICD-698.9 Inactive Sirisha Chen PRODUCTION SANITIZER 04/09 Bronchitis-Acute ICD-466.0 Inactive Sirisha Chen PRODUCTION SANITIZER Dyspnea ICD-786.09 Inactive Sirisha Chen PRODUCTION SANITIZER 05/09 Pes anserinus bursitis, right ICD-726.61 Inactive Piotr Daley DO Medication List Medication Instructions Start Date Stop Date Generic Name NDC Status Provider Patient Instruction TRIAMCINOLONE ACETONIDE 0.1 % EXTERNAL CREAM apply bid sparingly to rash 2017 TRIAMCINOLONE ACETONIDE 51315806957 No Longer Active Piotr Daley DO Active NYSTATIN 046646 UNIT/GM EXTERNAL CREAM Apply to rash 2-3 times a day and may repeat as needed NYSTATIN 82070752635 No Longer Active Piotr Daley DO Active WARFARIN SODIUM 4 MG ORAL TABLET 1 tablet by mouth daily WARFARIN SODIUM 16573300954 Active Sirisha Chen LPN Active MELOXICAM 15 MG ORAL TABLET 1 po q day for pain with food MELOXICAM 28132263136 Active Piotr Daley DO Active PREDNISONE 10 MG ORAL TABLET 1 tablet by mouth daily PREDNISONE 65532940760 No Longer Active Emelyn Norris Active TESSALON PERLES 100 MG ORAL CAPSULE 1-2 tablet by mouth 3 times daily 04/16 BENZONATATE 79180565671 No Longer Active Emelyn Norris Active PREDNISONE 20 MG ORAL TABLET two tabs by mouth today, then one tab by mouth days two and three PREDNISONE 81439380049 No Longer Active Piotr Daley DO Active CYCLOBENZAPRINE HCL 10 MG ORAL TABLET 1 tablet by mouth three times daily as needed for muscle spasm/pain CYCLOBENZAPRINE HCL 04718823500 Active Sirisha Chen LPN Active ZITHROMAX 250 MG ORAL TABLET Take two (2 ) tablets day one, then one (1) tablet a day for four (4) more days AZITHROMYCIN 70828291930 No Longer Active Piotr Daley DO Active PROAIR HFA 108 (90 BASE) MCG/ACT INHALATION AEROSOL SOLUTION 1-2 puffs four times a day as needed ALBUTEROL SULFATE 13676414596 No Longer Active Emelyn Norris Active DOXYCYCLINE HYCLATE 100 MG ORAL CAPSULE 1 cap by mouth BID x10 days DOXYCYCLINE HYCLATE 83143085472 No Longer Active Nella Harris APRN Active PREDNISONE 20 MG ORAL TABLET 2 tabs daily for 3 days, 1 tab daily for 3 days, 1/2 tab daily for 2 days PREDNISONE 26040465452 No Longer Active Matthew Rangel MD Active TRAMADOL HCL 50 MG ORAL TABLET 1 po tid with ES Tylenol TRAMADOL HCL 01603874323 No Longer Active Matthew Rangel MD Active GABAPENTIN 300 MG ORAL CAPSULE 1 po q hs for nerve pain GABAPENTIN 30967716054 No Longer Active Matthew Rangel MD Active PREDNISONE 20 MG ORAL TABLET 2 tablets today, then 1 tablet days 2 through 4 PREDNISONE 72314710283 No Longer Active Piotr Daley DO Active AZITHROMYCIN 250 MG ORAL TABLET 2 po qd x 1 day, then 1 po qd x 4 days 07/12 AZITHROMYCIN 86981687015 No Longer Active Piotr Daley DO Active IBUPROFEN 800 MG ORAL TABLET 1 tab every 8 hours as needed 07/12 IBUPROFEN 54817319796 No Longer Active Piotr Daley DO Active LOMOTIL 2.5-0.025 MG ORAL TABLET 1 to 2 four times a day as needed for diarrhea DIPHENOXYLATE-ATROPINE 08995746812 No Longer Active Piotr Daley DO Active WARFARIN SODIUM 4 MG ORAL TABLET 1 tab every evening WARFARIN SODIUM 95743598723 No Longer Active Piotr Daley DO Active PREDNISONE 20 MG ORAL TABLET 1 tablet twice daily for 2 days, then 1 tablet once daily for 2 days PREDNISONE 07501709252 No Longer Active Piotr Daley DO Active PROMETHAZINE HCL 25 MG ORAL TABLET 1 four times a day as needed for nausea/ vomiting PROMETHAZINE HCL 70947806817 No Longer Active Piotr Daley DO Active TUSSIONEX PENNKINETIC ER 10-8 MG/5ML ORAL SUSPENSION EXTENDED RELEASE 5ml po q12hr PRN Cough HYDROCOD POLST-CHLORPHEN POLST 62703461986 No Longer Active Piotr Daley DO Active AZITHROMYCIN 250 MG ORAL TABLET 2 po qd x 1 day, then 1 po qd x 4 days 10/13 AZITHROMYCIN 04551332430 No Longer Active Piotr Daley DO Active AZITHROMYCIN 250 MG ORAL TABLET 2 po qd x 1 day, then 1 po qd x 4 days 05/07 AZITHROMYCIN 87217911032 No Longer Active Piotr Daley DO Active LISINOPRIL-HYDROCHLOROTHIAZIDE 10-12.5 MG ORAL TABLET 1 tab by mouth daily LISINOPRIL-HYDROCHLOROTHIAZIDE 23042852437 Active Sirishaandre Jimn PRODUCTION SANITIZER Active LISINOPRIL 10 MG ORAL TABLET 1/2-1 tab po every other day LISINOPRIL 48758486753 No Longer Active Piotr Daley DO Active VENTOLIN HFA 108 (90 Base) MCG/ACT INHALATION AEROSOL SOLUTION 2 puffs four times a day PRN cough ALBUTEROL SULFATE 56157064679 No Longer Active Piotr Daley DO Active NYSTATIN-TRIAMCINOLONE 903611-4.1 UNIT/GM-% EXTERNAL CREAM Apply to area BID NYSTATIN-TRIAMCINOLONE 03133633933 No Longer Active Alena Chavira PRODUCTION SANITIZER Active PHISOHEX 3 % LIQD Use Directed HEXACHLOROPHENE 01035099992 No Longer Active Sandra [place] Active AZITHROMYCIN 250 MG ORAL TABLET 2 po qd x 1 day, then 1 po qd x 4 days 10/21 AZITHROMYCIN 73421662222 No Longer Active Katrina Rinaldi MD PhD Active AZITHROMYCIN 250 MG ORAL TABLET 2 po qd x 1 day, then 1 po qd x 4 days 10/16 AZITHROMYCIN 38696482379 No Longer Active Piotr Daley DO Active AZITHROMYCIN 500 MG INTRAVENOUS SOLUTION RECONSTITUTED 1 po q day AZITHROMYCIN 29418464871 No Longer Active Piotr Daley DO Active NYSTATIN-TRIAMCINOLONE 534290-6.1 UNIT/GM-% EXTERNAL CREAM apply bid NYSTATIN-TRIAMCINOLONE 73697465281 No Longer Active Piotr Daley DO Active IBUPROFEN 800 MG ORAL TABLET 1 po q 8 hours prn pain sparinly IBUPROFEN 05839348017 No Longer Active Piotr Daley Active VITAMIN D3 5000 UNIT ORAL CAPSULE 1 po daily CHOLECALCIFEROL 68848453605 Active Piotr Daley DO Active IBUPROFEN 800 MG ORAL TABLET 1 po q 8 hours prn pain sparinly IBUPROFEN 800 MG ORAL TABLET 178673 IBUPROFEN Inactive NYSTATIN-TRIAMCINOLONE 597875-8.1 UNIT/GM-% EXTERNAL CREAM apply bid NYSTATIN-TRIAMCINOLONE 339224-1.1 UNIT/GM-% EXTERNAL CREAM 2272611 NYSTATIN-TRIAMCINOLONE Inactive AZITHROMYCIN 500 MG INTRAVENOUS SOLUTION RECONSTITUTED 1 po q day AZITHROMYCIN 500 MG INTRAVENOUS SOLUTION RECONSTITUTED 37231478717 AZITHROMYCIN Inactive VENTOLIN HFA 108 (90 Base) MCG/ACT INHALATION AEROSOL SOLUTION 2 puffs four times a day PRN cough VENTOLIN HFA 108 (90 Base) MCG/ ACT INHALATION AEROSOL SOLUTION ALBUTEROL SULFATE Inactive LISINOPRIL 10 MG ORAL TABLET 1/2-1 tab po every other day LISINOPRIL 10 MG ORAL TABLET 592961 LISINOPRIL Inactive TUSSIONEX PENNKINETIC ER 10-8 MG/5ML ORAL SUSPENSION EXTENDED RELEASE 5ml po q12hr PRN Cough TUSSIONEX PENNKINETIC ER 10-8 MG/5ML ORAL SUSPENSION EXTENDED RELEASE HYDROCOD POLST-CHLORPHEN POLST Inactive PROMETHAZINE HCL 25 MG ORAL TABLET 1 four times a day as needed for nausea/ vomiting PROMETHAZINE HCL 25 MG ORAL TABLET 195812 PROMETHAZINE HCL Inactive PREDNISONE 20 MG ORAL TABLET 1 tablet twice daily for 2 days, then 1 tablet once daily for 2 days PREDNISONE 20 MG ORAL TABLET 598528 PREDNISONE Inactive WARFARIN SODIUM 4 MG ORAL TABLET 1 tab every evening WARFARIN SODIUM 4 MG ORAL TABLET 176453 WARFARIN SODIUM Inactive LOMOTIL 2.5-0.025 MG ORAL TABLET 1 to 2 four times a day as needed for diarrhea LOMOTIL 2.5-0.025 MG ORAL TABLET 1706630 DIPHENOXYLATE-ATROPINE Inactive IBUPROFEN 800 MG ORAL TABLET 1 tab every 8 hours as needed 07/12 IBUPROFEN 800 MG ORAL TABLET 474462 IBUPROFEN Inactive PREDNISONE 20 MG ORAL TABLET 2 tablets today, then 1 tablet days 2 through 4 PREDNISONE 20 MG ORAL TABLET 501074 PREDNISONE Inactive GABAPENTIN 300 MG ORAL CAPSULE 1 po q hs for nerve pain GABAPENTIN 300 MG ORAL CAPSULE 002823 GABAPENTIN Inactive TRAMADOL HCL 50 MG ORAL TABLET 1 po tid with ES Tylenol TRAMADOL HCL 50 MG ORAL TABLET 841710 TRAMADOL HCL Inactive PROAIR HFA 108 (90 BASE) MCG/ACT INHALATION AEROSOL SOLUTION 1-2 puffs four times a day as needed PROAIR HFA 108 (90 BASE) MCG/ACT INHALATION AEROSOL SOLUTION ALBUTEROL SULFATE Inactive PREDNISONE 20 MG ORAL TABLET two tabs by mouth today, then one tab by mouth days two and three PREDNISONE 20 MG ORAL TABLET 802486 PREDNISONE Inactive TESSALON PERLES 100 MG ORAL CAPSULE 1-2 tablet by mouth 3 times daily 04/16 TESSALON PERLES 100 MG ORAL CAPSULE 836835 BENZONATATE Inactive PREDNISONE 10 MG ORAL TABLET 1 tablet by mouth daily PREDNISONE 10 MG ORAL TABLET 574926 PREDNISONE Inactive NYSTATIN 484067 UNIT/GM EXTERNAL CREAM Apply to rash 2-3 times a day and may repeat as needed NYSTATIN 500603 UNIT/GM EXTERNAL CREAM 299399 NYSTATIN Inactive TRIAMCINOLONE ACETONIDE 0.1 % EXTERNAL CREAM apply bid sparingly to rash 2017 TRIAMCINOLONE ACETONIDE 0.1 % EXTERNAL CREAM 3611067 TRIAMCINOLONE ACETONIDE Inactive AZITHROMYCIN 250 MG ORAL TABLET 2 po qd x 1 day, then 1 po qd x 4 days 10/16 AZITHROMYCIN 250 MG ORAL TABLET 976330 AZITHROMYCIN Inactive AZITHROMYCIN 250 MG ORAL TABLET 2 po qd x 1 day, then 1 po qd x 4 days 10/21 AZITHROMYCIN 250 MG ORAL TABLET 552203 AZITHROMYCIN Inactive NYSTATIN-TRIAMCINOLONE 608077-5.1 UNIT/GM-% EXTERNAL CREAM Apply to area BID NYSTATIN-TRIAMCINOLONE 697217-2.1 UNIT/GM-% EXTERNAL CREAM 7349376 NYSTATIN-TRIAMCINOLONE Inactive AZITHROMYCIN 250 MG ORAL TABLET 2 po qd x 1 day, then 1 po qd x 4 days 05/07 AZITHROMYCIN 250 MG ORAL TABLET 990572 AZITHROMYCIN Inactive AZITHROMYCIN 250 MG ORAL TABLET 2 po qd x 1 day, then 1 po qd x 4 days 10/13 AZITHROMYCIN 250 MG ORAL TABLET 226093 AZITHROMYCIN Inactive AZITHROMYCIN 250 MG ORAL TABLET 2 po qd x 1 day, then 1 po qd x 4 days 07/12 AZITHROMYCIN 250 MG ORAL TABLET 996718 AZITHROMYCIN Inactive PREDNISONE 20 MG ORAL TABLET 2 tabs daily for 3 days, 1 tab daily for 3 days, 1/2 tab daily for 2 days PREDNISONE 20 MG ORAL TABLET 673112 PREDNISONE Inactive DOXYCYCLINE HYCLATE 100 MG ORAL CAPSULE 1 cap by mouth BID x10 days DOXYCYCLINE HYCLATE 100 MG ORAL CAPSULE 9595500 DOXYCYCLINE HYCLATE Inactive ZITHROMAX 250 MG ORAL TABLET Take two (2 ) tablets day one, then one (1) tablet a day for four (4) more days ZITHROMAX 250 MG ORAL TABLET 980900 AZITHROMYCIN Inactive Advance Directives Directive Description Start [...] temperature weight E&M 221 [lb_av] Weight Measured blood pressure, diastolic 66 mm[Hg] BP phan blood pressure, systolic 102 mm[Hg] BP sys height E&M 71 [in_us] Bdy height pulse rate E&M 80 /min Heart rate temperature E&M 97.2 [degF] Body temperature weight E&M 220 [lb_av] Weight Measured Diagnostic Results Date Name Value Unit Range Description Lab Report: Comp. Metabolic Panel, CBC, Prostatic Specific Ag - Chemistry sodium, serum 141 mmol/L 978-539 5203/12/17 carbon dioxide, venous blood 30.9 mmol/L 21.0-32.0 [...] 50-136 Encounters Code Encounter Date Provider Facility CPT-74536 [id number] Vst-Est Level IV 08:51:04 MANUFACTURING QUALITY INSPECTOR Piotr Daley [facility] CPT-80444 [id number] Vst-Est Level III 14:29:05 CDT Piotr Wilson [facility] CPT-18952 Level 3 Est. Patient 15:59:25 MANUFACTURING QUALITY INSPECTOR Piotr Daley [facility] CPT-09950 Level 3 Est. Patient 12:33:59 MANUFACTURING QUALITY INSPECTOR Piotr Daley [facility] CPT-95610 Level 3 Est. Patient 15:56:17 MANUFACTURING QUALITY INSPECTOR Piotr Daley [facility] CPT-47271 Level 3 Est. Patient 10:34:54 MANUFACTURING QUALITY INSPECTOR Piotr Wilson [facility] CPT-31740 Level 3 Est. Patient 17:10:19 CDT Nella Harris APRN [facility] CPT-17927 Level 3 Est. Patient 10:48:17 MANUFACTURING QUALITY INSPECTOR Matthew Rangel MD [facility] CPT-79871 Level 4 Est. Patient 17:15:07 MANUFACTURING QUALITY INSPECTOR Piotr Wilson [facility] CPT-31006 Level 3 Est. Patient 12:46:13 MANUFACTURING QUALITY INSPECTOR Piotr Wilson [facility] CPT-85274 Level 3 Est. Patient 15:14:31 MANUFACTURING QUALITY INSPECTOR Piotr Daley [facility] CPT-18629 Level 3 Est. Patient 09:20:13 MANUFACTURING QUALITY INSPECTOR Piotr Wilson [facility] CPT-44896 Level 3 Est. Patient 09:49:40 CDT Piotr Wilson [facility] CPT-62410 Level 3 Est. Patient 16:28:11 CDT Piotr Wilson Edi [facility] CPT-44266 Level 3 Est. Patient 12:41:58 MANUFACTURING QUALITY INSPECTOR Piotr Daley [facility] CPT-22354 Level 3 Est. Patient 09:21:24 CDT Piotr Wilson [facility] CPT-85847 Level 3 Est. Patient 09:21:11 CDT Piotr Wilson [facility] CPT-23338 Level 3 Est. Patient 11:16:29 MANUFACTURING QUALITY INSPECTOR Piotr Daley [facility] CPT-06150 Level 3 Est. Patient 18:40:19 MANUFACTURING QUALITY INSPECTOR Piotr Daley [facility] CPT-62271 Level 3 Est. Patient 19:30:50 CDT Piotr Daley [facility] CPT-79996 Level 3 Est. Patient 22:06:44 CDT Katrina Rinaldi MD PhD [facility] CPT-90369 Level 3 Est. Patient 14:20:00 CDT Piotr Daley [facility] CPT-34506 Level 3 Est. Patient 14:15:22 MANUFACTURING QUALITY INSPECTOR Piotr Daley [facility] CPT-95226 Level 3 Est. Patient 20:19:57 MANUFACTURING QUALITY INSPECTOR Piotr Daley [facility] CPT-06450 Level 3 Est. Patient 16:44:32 CDT Piotr Daley [facility] CPT-40924 Level 3 Est. Patient 08:48:46 MANUFACTURING QUALITY INSPECTOR Piotr Daley [facility] CPT-40962 Level 3 Est. Patient 21:01:21 CDT Piotr Daley [facility] Procedures Code Procedure Name Date Entry Date Standard Description CPT-Cryo Cryotherapy 08:51:04 [facility] CPT-G0439 Subsequent Annual Wellness Exam 08:51:04 [facility] CPT-68690 Sacroiliac jt < 3V - XRAY USE ONLY 16:45:19 MANUFACTURING QUALITY INSPECTOR 05/09 CPT-14484 LS spine comp w obliques - XRAY USE ONLY 14:52:26 [facility] CPT-63351 Chest, 2 views 12:55:58 [facility] CPT-G0439 Subsequent Annual Wellness Exam 10:34:52 MANUFACTURING QUALITY INSPECTOR CPT-62979 BMP - LAB USE ONLY 17:19:11 MANUFACTURING QUALITY INSPECTOR CPT-92144 PT/INR - LAB USE ONLY 17:19:10 MANUFACTURING QUALITY INSPECTOR CPT-17461 Venipuncture Draw Fee 17:19:10 MANUFACTURING QUALITY INSPECTOR CPT-81309 PT/INR - LAB USE ONLY 08:12:25 MANUFACTURING QUALITY INSPECTOR CPT-46449 Venipuncture Draw Fee 08:12:24 MANUFACTURING QUALITY INSPECTOR CPT-39133 Venipuncture Draw Fee 11:31:07 MANUFACTURING QUALITY INSPECTOR CPT-12790 TPSA - LAB USE ONLY 11:31:07 MANUFACTURING QUALITY INSPECTOR CPT-83475 PT/INR - LAB USE ONLY 11:31:07 MANUFACTURING QUALITY INSPECTOR CPT-G0439 Subsequent Annual Wellness Exam 09:59:29 MANUFACTURING QUALITY INSPECTOR CPT-73607 Creatinine - LAB USE ONLY 14:37:55 MANUFACTURING QUALITY INSPECTOR CPT-11400 PT/INR - LAB USE ONLY 14:37:55 MANUFACTURING QUALITY INSPECTOR CPT-59238 Venipuncture Draw Fee 14:37:55 MANUFACTURING QUALITY INSPECTOR CPT-40120 LS spine comp w obliques - XRAY USE ONLY 12:59:25 MANUFACTURING QUALITY INSPECTOR CPT-99493 PT/INR - LAB USE ONLY 13:49:20 CDT CPT-95595 Venipuncture Draw Fee 13:49:19 CDT CPT-65598 PT/INR - LAB USE ONLY 15:48:49 CDT CPT-72199 Venipuncture Draw Fee 15:48:49 CDT CPT-09600 Venipuncture Draw Fee 11:31:59 CDT CPT-51741 PT/INR - LAB USE ONLY 11:31:59 CDT CPT-12717 Venipuncture Draw Fee 13:29:15 CDT CPT-57073 Thoracolumbar AP/Lat 15:19:19 MANUFACTURING QUALITY INSPECTOR CPT-G0438 Initial Annual Wellness Exam 12:18:54 MANUFACTURING QUALITY INSPECTOR CPT-66612 Knee 3V 09:57:38 CDT CPT-OV Office Visit 15:45:01 MANUFACTURING QUALITY INSPECTOR CPT-81438 Abd compl w upright 17:10:25 CDT
--- OUTSIDE RECORDS SUMMARY | 2018-07-18 07:26 | XMS REPORT | Clinical Summary ---
Author Author Admin, IEV Organization [email or web address] Address Unknown Phone Unavailable Allergies, Adverse Reactions, [...] neoplasm of prostate V10.46 Active Alina Meyers SKI MAKER Personal history of malignant neoplasm of prostate Coronary artery disease 414.00 Active Alina Meyers APRN Coronary atherosclerosis of unspecified type of vessel, [place]al[place] or graft Back pain, thoracic region, left [...] LPN Seborrheic keratosis ICD-702.19 Inactive Sirisha Chen PLUG MAKING OPERATOR Bronchitis-Acute ICD-466.0 Inactive Piotr Daley DO Leg pain, right ICD-729.5 Inactive Sirisha Chen PLUG MAKING OPERATOR Right leg pain ICD-729.5 Inactive Sirisha Chen PLUG MAKING OPERATOR Bronchitis-Acute ICD-466.0 Inactive Sirisha Chen PLUG MAKING OPERATOR Knee pain, left ICD-719.46 Inactive Sirisha Chen PLUG MAKING OPERATOR Actinic keratoses ICD-702.0 Inactive Sirisha Chen PLUG MAKING OPERATOR Back pain, thoracic region, left ICD-724.1 Inactive Piotr Daley DO Thoracic back pain ICD-724.5 Inactive Sirisha Chen PLUG MAKING OPERATOR Back pain lumbar ICD-724.2 Inactive Sirisha Chen PLUG MAKING OPERATOR Insect bite ICD-919.4 Inactive Sirisha Chen PLUG MAKING OPERATOR Pruritus ICD-698.9 Inactive Sirisha Chen PLUG MAKING OPERATOR 04/09 Bronchitis-Acute ICD-466.0 Inactive Sirisha Chen PLUG MAKING OPERATOR Dyspnea ICD-786.09 Inactive Sirisha Chen PLUG MAKING OPERATOR 05/09 Pes anserinus bursitis, right ICD-726.61 Inactive Piotr Daley DO Medication List Medication Instructions Start Date Stop Date Generic Name NDC Status Provider Patient Instruction TRIAMCINOLONE ACETONIDE 0.1 % EXTERNAL CREAM apply bid sparingly to rash 2017 TRIAMCINOLONE ACETONIDE 15667351869 No Longer Active Piotr Daley DO Active NYSTATIN 670942 UNIT/GM EXTERNAL CREAM Apply to rash 2-3 times a day and may repeat as needed NYSTATIN 46187543871 No Longer Active Piotr Daley DO Active WARFARIN SODIUM 4 MG ORAL TABLET 1 tablet by mouth daily WARFARIN SODIUM 57489002406 Active Sirisha Chen LPN Active MELOXICAM 15 MG ORAL TABLET 1 po q day for pain with food MELOXICAM 16822479646 Active Piotr Daley DO Active PREDNISONE 10 MG ORAL TABLET 1 tablet by mouth daily PREDNISONE 63290904731 No Longer Active Emelyn Norris Active TESSALON PERLES 100 MG ORAL CAPSULE 1-2 tablet by mouth 3 times daily 04/16 BENZONATATE 09330889640 No Longer Active Emelyn Norris Active PREDNISONE 20 MG ORAL TABLET two tabs by mouth today, then one tab by mouth days two and three PREDNISONE 43882181452 No Longer Active Piotr Daley DO Active CYCLOBENZAPRINE HCL 10 MG ORAL TABLET 1 tablet by mouth three times daily as needed for muscle spasm/pain CYCLOBENZAPRINE HCL 75368114792 Active Sirisha Chen LPN Active ZITHROMAX 250 MG ORAL TABLET Take two (2 ) tablets day one, then one (1) tablet a day for four (4) more days AZITHROMYCIN 21810959472 No Longer Active Piotr Daley DO Active PROAIR HFA 108 (90 BASE) MCG/ACT INHALATION AEROSOL SOLUTION 1-2 puffs four times a day as needed ALBUTEROL SULFATE 18906651501 No Longer Active Emelyn Norris Active DOXYCYCLINE HYCLATE 100 MG ORAL CAPSULE 1 cap by mouth BID x10 days DOXYCYCLINE HYCLATE 74518338251 No Longer Active Nella Harris APRN Active PREDNISONE 20 MG ORAL TABLET 2 tabs daily for 3 days, 1 tab daily for 3 days, 1/2 tab daily for 2 days PREDNISONE 33154400260 No Longer Active Matthew Rangel MD Active TRAMADOL HCL 50 MG ORAL TABLET 1 po tid with ES Tylenol TRAMADOL HCL 53377428755 No Longer Active Matthew Rangel MD Active GABAPENTIN 300 MG ORAL CAPSULE 1 po q hs for nerve pain GABAPENTIN 18201592232 No Longer Active Matthew Rangel MD Active PREDNISONE 20 MG ORAL TABLET 2 tablets today, then 1 tablet days 2 through 4 PREDNISONE 36108317454 No Longer Active Piotr Daley DO Active AZITHROMYCIN 250 MG ORAL TABLET 2 po qd x 1 day, then 1 po qd x 4 days 07/12 AZITHROMYCIN 28707837110 No Longer Active Piotr Daley DO Active IBUPROFEN 800 MG ORAL TABLET 1 tab every 8 hours as needed 07/12 IBUPROFEN 47674998688 No Longer Active Piotr Daley DO Active LOMOTIL 2.5-0.025 MG ORAL TABLET 1 to 2 four times a day as needed for diarrhea DIPHENOXYLATE-ATROPINE 12838119757 No Longer Active Piotr Daley DO Active WARFARIN SODIUM 4 MG ORAL TABLET 1 tab every evening WARFARIN SODIUM 46012409946 No Longer Active Piotr Daley DO Active PREDNISONE 20 MG ORAL TABLET 1 tablet twice daily for 2 days, then 1 tablet once daily for 2 days PREDNISONE 87540818507 No Longer Active Piotr Daley DO Active PROMETHAZINE HCL 25 MG ORAL TABLET 1 four times a day as needed for nausea/ vomiting PROMETHAZINE HCL 10419570139 No Longer Active Piotr Daley DO Active TUSSIONEX PENNKINETIC ER 10-8 MG/5ML ORAL SUSPENSION EXTENDED RELEASE 5ml po q12hr PRN Cough HYDROCOD POLST-CHLORPHEN POLST 23962553154 No Longer Active Piotr Daley DO Active AZITHROMYCIN 250 MG ORAL TABLET 2 po qd x 1 day, then 1 po qd x 4 days 10/13 AZITHROMYCIN 40737916829 No Longer Active Piotr Daley DO Active AZITHROMYCIN 250 MG ORAL TABLET 2 po qd x 1 day, then 1 po qd x 4 days 05/07 AZITHROMYCIN 51957179745 No Longer Active Piotr Daley DO Active LISINOPRIL-HYDROCHLOROTHIAZIDE 10-12.5 MG ORAL TABLET 1 tab by mouth daily LISINOPRIL-HYDROCHLOROTHIAZIDE 57213020087 Active Sirishaandre Jimn PLUG MAKING OPERATOR Active LISINOPRIL 10 MG ORAL TABLET 1/2-1 tab po every other day LISINOPRIL 78498239048 No Longer Active Piotr Daley DO Active VENTOLIN HFA 108 (90 Base) MCG/ACT INHALATION AEROSOL SOLUTION 2 puffs four times a day PRN cough ALBUTEROL SULFATE 41531587875 No Longer Active Piotr Daley DO Active NYSTATIN-TRIAMCINOLONE 066705-2.1 UNIT/GM-% EXTERNAL CREAM Apply to area BID NYSTATIN-TRIAMCINOLONE 92112489132 No Longer Active Alena Chavira PLUG MAKING OPERATOR Active PHISOHEX 3 % LIQD Use Directed HEXACHLOROPHENE 97004761243 No Longer Active Sandra [place] Active AZITHROMYCIN 250 MG ORAL TABLET 2 po qd x 1 day, then 1 po qd x 4 days 10/21 AZITHROMYCIN 47731724914 No Longer Active Katrina Rinaldi MD PhD Active AZITHROMYCIN 250 MG ORAL TABLET 2 po qd x 1 day, then 1 po qd x 4 days 10/16 AZITHROMYCIN 39485260859 No Longer Active Piotr Daley DO Active AZITHROMYCIN 500 MG INTRAVENOUS SOLUTION RECONSTITUTED 1 po q day AZITHROMYCIN 76785787731 No Longer Active Piotr Daley DO Active NYSTATIN-TRIAMCINOLONE 949716-2.1 UNIT/GM-% EXTERNAL CREAM apply bid NYSTATIN-TRIAMCINOLONE 35207339703 No Longer Active Piotr Daley DO Active IBUPROFEN 800 MG ORAL TABLET 1 po q 8 hours prn pain sparinly IBUPROFEN 76446720890 No Longer Active Pitor Daley Active VITAMIN D3 5000 UNIT ORAL CAPSULE 1 po daily CHOLECALCIFEROL 73267654420 Active Piotr Daley DO Active IBUPROFEN 800 MG ORAL TABLET 1 po q 8 hours prn pain sparinly IBUPROFEN 800 MG ORAL TABLET 789783 IBUPROFEN Inactive NYSTATIN-TRIAMCINOLONE 487780-5.1 UNIT/GM-% EXTERNAL CREAM apply bid NYSTATIN-TRIAMCINOLONE 116837-9.1 UNIT/GM-% EXTERNAL CREAM 2952066 NYSTATIN-TRIAMCINOLONE Inactive AZITHROMYCIN 500 MG INTRAVENOUS SOLUTION RECONSTITUTED 1 po q day AZITHROMYCIN 500 MG INTRAVENOUS SOLUTION RECONSTITUTED 93527800028 AZITHROMYCIN Inactive VENTOLIN HFA 108 (90 Base) MCG/ACT INHALATION AEROSOL SOLUTION 2 puffs four times a day PRN cough VENTOLIN HFA 108 (90 Base) MCG/ ACT INHALATION AEROSOL SOLUTION ALBUTEROL SULFATE Inactive LISINOPRIL 10 MG ORAL TABLET 1/2-1 tab po every other day LISINOPRIL 10 MG ORAL TABLET 917404 LISINOPRIL Inactive TUSSIONEX PENNKINETIC ER 10-8 MG/5ML ORAL SUSPENSION EXTENDED RELEASE 5ml po q12hr PRN Cough TUSSIONEX PENNKINETIC ER 10-8 MG/5ML ORAL SUSPENSION EXTENDED RELEASE HYDROCOD POLST-CHLORPHEN POLST Inactive PROMETHAZINE HCL 25 MG ORAL TABLET 1 four times a day as needed for nausea/ vomiting PROMETHAZINE HCL 25 MG ORAL TABLET 509122 PROMETHAZINE HCL Inactive PREDNISONE 20 MG ORAL TABLET 1 tablet twice daily for 2 days, then 1 tablet once daily for 2 days PREDNISONE 20 MG ORAL TABLET 020530 PREDNISONE Inactive WARFARIN SODIUM 4 MG ORAL TABLET 1 tab every evening WARFARIN SODIUM 4 MG ORAL TABLET 969239 WARFARIN SODIUM Inactive LOMOTIL 2.5-0.025 MG ORAL TABLET 1 to 2 four times a day as needed for diarrhea LOMOTIL 2.5-0.025 MG ORAL TABLET 2189974 DIPHENOXYLATE-ATROPINE Inactive IBUPROFEN 800 MG ORAL TABLET 1 tab every 8 hours as needed 07/12 IBUPROFEN 800 MG ORAL TABLET 791173 IBUPROFEN Inactive PREDNISONE 20 MG ORAL TABLET 2 tablets today, then 1 tablet days 2 through 4 PREDNISONE 20 MG ORAL TABLET 715051 PREDNISONE Inactive GABAPENTIN 300 MG ORAL CAPSULE 1 po q hs for nerve pain GABAPENTIN 300 MG ORAL CAPSULE 490989 GABAPENTIN Inactive TRAMADOL HCL 50 MG ORAL TABLET 1 po tid with ES Tylenol TRAMADOL HCL 50 MG ORAL TABLET 491448 TRAMADOL HCL Inactive PROAIR HFA 108 (90 BASE) MCG/ACT INHALATION AEROSOL SOLUTION 1-2 puffs four times a day as needed PROAIR HFA 108 (90 BASE) MCG/ACT INHALATION AEROSOL SOLUTION ALBUTEROL SULFATE Inactive PREDNISONE 20 MG ORAL TABLET two tabs by mouth today, then one tab by mouth days two and three PREDNISONE 20 MG ORAL TABLET 390828 PREDNISONE Inactive TESSALON PERLES 100 MG ORAL CAPSULE 1-2 tablet by mouth 3 times daily 04/16 TESSALON PERLES 100 MG ORAL CAPSULE 301700 BENZONATATE Inactive PREDNISONE 10 MG ORAL TABLET 1 tablet by mouth daily PREDNISONE 10 MG ORAL TABLET 351594 PREDNISONE Inactive NYSTATIN 375073 UNIT/GM EXTERNAL CREAM Apply to rash 2-3 times a day and may repeat as needed NYSTATIN 638319 UNIT/GM EXTERNAL CREAM 772215 NYSTATIN Inactive TRIAMCINOLONE ACETONIDE 0.1 % EXTERNAL CREAM apply bid sparingly to rash 2017 TRIAMCINOLONE ACETONIDE 0.1 % EXTERNAL CREAM 6368432 TRIAMCINOLONE ACETONIDE Inactive AZITHROMYCIN 250 MG ORAL TABLET 2 po qd x 1 day, then 1 po qd x 4 days 10/16 AZITHROMYCIN 250 MG ORAL TABLET 258640 AZITHROMYCIN Inactive AZITHROMYCIN 250 MG ORAL TABLET 2 po qd x 1 day, then 1 po qd x 4 days 10/21 AZITHROMYCIN 250 MG ORAL TABLET 698543 AZITHROMYCIN Inactive NYSTATIN-TRIAMCINOLONE 619147-6.1 UNIT/GM-% EXTERNAL CREAM Apply to area BID NYSTATIN-TRIAMCINOLONE 629798-1.1 UNIT/GM-% EXTERNAL CREAM 1303264 NYSTATIN-TRIAMCINOLONE Inactive AZITHROMYCIN 250 MG ORAL TABLET 2 po qd x 1 day, then 1 po qd x 4 days 05/07 AZITHROMYCIN 250 MG ORAL TABLET 509023 AZITHROMYCIN Inactive AZITHROMYCIN 250 MG ORAL TABLET 2 po qd x 1 day, then 1 po qd x 4 days 10/13 AZITHROMYCIN 250 MG ORAL TABLET 488260 AZITHROMYCIN Inactive AZITHROMYCIN 250 MG ORAL TABLET 2 po qd x 1 day, then 1 po qd x 4 days 07/12 AZITHROMYCIN 250 MG ORAL TABLET 242891 AZITHROMYCIN Inactive PREDNISONE 20 MG ORAL TABLET 2 tabs daily for 3 days, 1 tab daily for 3 days, 1/2 tab daily for 2 days PREDNISONE 20 MG ORAL TABLET 815429 PREDNISONE Inactive DOXYCYCLINE HYCLATE 100 MG ORAL CAPSULE 1 cap by mouth BID x10 days DOXYCYCLINE HYCLATE 100 MG ORAL CAPSULE 6587423 DOXYCYCLINE HYCLATE Inactive ZITHROMAX 250 MG ORAL TABLET Take two (2 ) tablets day one, then one (1) tablet a day for four (4) more days ZITHROMAX 250 MG ORAL TABLET 143127 AZITHROMYCIN Inactive Advance Directives Directive Description Start [...] Ag - Chemistry sodium, serum 141 mmol/L 745-963 7499/12/17 carbon dioxide, venous blood 30.9 mmol/L 21.0-32.0 [...] 50-136 Encounters Code Encounter Date Provider Facility CPT-50186 [id number] Vst-Est Level IV 08:51:04 NUT TAPPER Piotr Daley [facility] CPT-40373 [id number] Vst-Est Level III 14:29:05 CDT Piotr Daley [facility] CPT-19072 Level 3 Est. Patient 15:59:25 NUT TAPPER Piotr Daley [facility] CPT-96150 Level 3 Est. Patient 12:33:59 NUT TAPPER Piotr Daley [facility] CPT-25218 Level 3 Est. Patient 15:56:17 NUT TAPPER Piotr Daley [facility] CPT-89019 Level 3 Est. Patient 10:34:54 NUT TAPPER Piotr Daley [facility] CPT-69879 Level 3 Est. Patient 17:10:19 CDT Nella Harris APRN [facility] CPT-06610 Level 3 Est. Patient 10:48:17 NUT TAPPER Matthew Rangel MD [facility] CPT-94904 Level 4 Est. Patient 17:15:07 NUT TAPPER Piotr Daley [facility] CPT-41393 Level 3 Est. Patient 12:46:13 NUT TAPPER Piotr Wilson Edi [facility] CPT-15532 Level 3 Est. Patient 15:14:31 NUT TAPPER Piotr Wilson Edi [facility] CPT-77675 Level 3 Est. Patient 09:20:13 NUT TAPPER Piotr Katie Daley [facility] CPT-33486 Level 3 Est. Patient 09:49:40 CDT Piotr Wilson Edi [facility] CPT-54482 Level 3 Est. Patient 16:28:11 CDT Piotr Daley [facility] CPT-58684 Level 3 Est. Patient 12:41:58 NUT TAPPER Piotr Daley [facility] CPT-59870 Level 3 Est. Patient 09:21:24 CDT Piotr Katie Daley [facility] CPT-19099 Level 3 Est. Patient 09:21:11 CDT Piotr Katie Edi [facility] CPT-94628 Level 3 Est. Patient 11:16:29 NUT TAPPER Piotr Katie Daley [facility] CPT-91527 Level 3 Est. Patient 18:40:19 NUT TAPPER Piotr Daley [facility] CPT-12121 Level 3 Est. Patient 19:30:50 CDT Piotr Daley [facility] CPT-04295 Level 3 Est. Patient 22:06:44 CDT Katrina Rinaldi MD PhD [facility] CPT-34615 Level 3 Est. Patient 14:20:00 CDT Piotr Daley [facility] CPT-11483 Level 3 Est. Patient 14:15:22 NUT TAPPER Piotr Daley [facility] CPT-69084 Level 3 Est. Patient 20:19:57 NUT TAPPER Piotr Daley [facility] CPT-87069 Level 3 Est. Patient 16:44:32 CDT Piotr Daley [facility] CPT-77389 Level 3 Est. Patient 08:48:46 NUT TAPPER Piotr Daley [facility] CPT-18031 Level 3 Est. Patient 21:01:21 CDT Piotr Daley [facility] Procedures Code Procedure Name Date Entry Date Standard Description CPT-Cryo Cryotherapy 08:51:04 NUT TAPPER CPT-G0439 Subsequent Annual Wellness Exam 08:51:04 [facility] CPT-50180 Sacroiliac jt < 3V - XRAY USE ONLY 16:45:19 NUT TAPPER 05/09 CPT-97407 LS spine comp w obliques - XRAY USE ONLY 14:52:26 [facility] CPT-18788 Chest, 2 views 12:55:58 NUT TAPPER CPT-G0439 Subsequent Annual Wellness Exam 10:34:52 NUT TAPPER CPT-47890 BMP - LAB USE ONLY 17:19:11 NUT TAPPER CPT-85657 PT/INR - LAB USE ONLY 17:19:10 [facility] CPT-82570 Venipuncture Draw Fee 17:19:10 [facility] CPT-15673 PT/INR - LAB USE ONLY 08:12:25 NUT TAPPER CPT-23452 Venipuncture Draw Fee 08:12:24 NUT TAPPER CPT-14776 Venipuncture Draw Fee 11:31:07 NUT TAPPER CPT-98404 TPSA - LAB USE ONLY 11:31:07 NUT TAPPER CPT-67930 PT/INR - LAB USE ONLY 11:31:07 NUT TAPPER CPT-G0439 Subsequent Annual Wellness Exam 09:59:29 NUT TAPPER CPT-86649 Creatinine - LAB USE ONLY 14:37:55 NUT TAPPER CPT-63514 PT/INR - LAB USE ONLY 14:37:55 NUT TAPPER CPT-75408 Venipuncture Draw Fee 14:37:55 NUT TAPPER CPT-21891 LS spine comp w obliques - XRAY USE ONLY 12:59:25 NUT TAPPER CPT-95025 PT/INR - LAB USE ONLY 13:49:20 CDT CPT-77591 Venipuncture Draw Fee 13:49:19 CDT CPT-18380 PT/INR - LAB USE ONLY 15:48:49 CDT CPT-89604 Venipuncture Draw Fee 15:48:49 CDT CPT-25343 Venipuncture Draw Fee 11:31:59 CDT CPT-03373 PT/INR - LAB USE ONLY 11:31:59 CDT CPT-14102 Venipuncture Draw Fee 13:29:15 CDT CPT-34572 Thoracolumbar AP/Lat 15:19:19 NUT TAPPER CPT-G0438 Initial Annual Wellness Exam 12:18:54 NUT TAPPER CPT-93553 Knee 3V 09:57:38 CDT CPT-OV Office Visit 15:45:01 NUT TAPPER CPT-97439 Abd compl w upright 17:10:25 CDT
[2018-07-18] MEDS ORDERED: fentaNYL INJECTION 100 MCG/2 ML AMP ONE (07:27)
[2018-07-18] MEDS ORDERED: MIDAZOLAM 2 MG/2 ML (VERSED) VIAL ONE (07:27)
--- OUTSIDE RECORDS SUMMARY | 2018-07-18 07:27 | XMS REPORT | Clinical Summary ---
Author Author Admin, [facility] [employer] Address Unknown Phone Unavailable Allergies, Adverse Reactions, [...] Coronary atherosclerosis of unspecified type of vessel, [place] or graft Back pain, thoracic region, left [...] THROMBOPHLEBITIS, LEG, 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 Inactive Sirisha Chen [employer] Seborrheic keratosis ICD-702.19 Inactive Sirisha Chen [employer] Bronchitis-Acute ICD-466.0 Inactive Piotr Daley DO Leg pain, right ICD-729.5 Inactive Sirisha Chen [employer] Right leg pain ICD-729.5 Inactive Sirisha Chen [employer] Bronchitis-Acute ICD-466.0 Inactive Sirisha Chen [employer] Knee pain, left ICD-719.46 Inactive Sirisha Chen [employer] Actinic keratoses ICD-702.0 Inactive Sirisha Chen [employer] Back pain, thoracic region, left ICD-724.1 Inactive Piotr Daley DO Thoracic back pain ICD-724.5 Inactive Sirisha Chen [employer] Back pain lumbar ICD-724.2 Inactive Sirisha Chen [employer] Insect bite ICD-919.4 Inactive Sirisha Chen [employer] Pruritus ICD-698.9 Inactive Sirisha Chen [employer] 04/09 Bronchitis-Acute ICD-466.0 Inactive Sirisha Chen [employer] Dyspnea ICD-786.09 Inactive Sirisha Chen [employer] 05/09 Pes anserinus bursitis, right ICD-726.61 Inactive Piotr Daley DO Medication List Medication Instructions Start Date Stop Date Generic Name NDC Status Provider Patient Instruction TRIAMCINOLONE ACETONIDE 0.1 % EXTERNAL CREAM apply bid sparingly to rash 2017 TRIAMCINOLONE ACETONIDE 56571742254 No Longer Active Piotr Daley DO Active NYSTATIN 400732 UNIT/GM EXTERNAL CREAM Apply to rash 2-3 times a day and may repeat as needed NYSTATIN 05205924204 No Longer Active Piotr Daley DO Active WARFARIN SODIUM 4 MG ORAL TABLET 1 tablet by mouth daily WARFARIN SODIUM 04036875724 Active Sirisha Chen LPN Active MELOXICAM 15 MG ORAL TABLET 1 po q day for pain with food MELOXICAM 03429023092 Active Piotr Daley DO Active PREDNISONE 10 MG ORAL TABLET 1 tablet by mouth daily PREDNISONE 41002565670 No Longer Active Emelyn Norris Active TESSALON PERLES 100 MG ORAL CAPSULE 1-2 tablet by mouth 3 times daily 04/16 BENZONATATE 81791159075 No Longer Active Emelyn Norris Active PREDNISONE 20 MG ORAL TABLET two tabs by mouth today, then one tab by mouth days two and three PREDNISONE 81806899712 No Longer Active Piotr Daley DO Active CYCLOBENZAPRINE HCL 10 MG ORAL TABLET 1 tablet by mouth three times daily as needed for muscle spasm/pain CYCLOBENZAPRINE HCL 03549416923 Active Sirisha Chen LPN Active ZITHROMAX 250 MG ORAL TABLET Take two (2 ) tablets day one, then one (1) tablet a day for four (4) more days AZITHROMYCIN 64216094167 No Longer Active Piotr Daley DO Active PROAIR HFA 108 (90 BASE) MCG/ACT INHALATION AEROSOL SOLUTION 1-2 puffs four times a day as needed ALBUTEROL SULFATE 27365407623 No Longer Active Emelyn Norris Active DOXYCYCLINE HYCLATE 100 MG ORAL CAPSULE 1 cap by mouth BID x10 days DOXYCYCLINE HYCLATE 98045748245 No Longer Active Nella Harris APRN Active PREDNISONE 20 MG ORAL TABLET 2 tabs daily for 3 days, 1 tab daily for 3 days, 1/2 tab daily for 2 days PREDNISONE 60496422911 No Longer Active Matthew Rangel MD Active TRAMADOL HCL 50 MG ORAL TABLET 1 po tid with ES Tylenol TRAMADOL HCL 93391555931 No Longer Active Matthew Rangel MD Active GABAPENTIN 300 MG ORAL CAPSULE 1 po q hs for nerve pain GABAPENTIN 47521187328 No Longer Active Matthew Rangel MD Active PREDNISONE 20 MG ORAL TABLET 2 tablets today, then 1 tablet days 2 through 4 PREDNISONE 78355154857 No Longer Active Piotr Daley DO Active AZITHROMYCIN 250 MG ORAL TABLET 2 po qd x 1 day, then 1 po qd x 4 days 07/12 AZITHROMYCIN 49866893693 No Longer Active Piotr Daley DO Active IBUPROFEN 800 MG ORAL TABLET 1 tab every 8 hours as needed 07/12 IBUPROFEN 64938825422 No Longer Active Piotr Daley DO Active LOMOTIL 2.5-0.025 MG ORAL TABLET 1 to 2 four times a day as needed for diarrhea DIPHENOXYLATE-ATROPINE 10596918008 No Longer Active Piotr Daley DO Active WARFARIN SODIUM 4 MG ORAL TABLET 1 tab every evening WARFARIN SODIUM 02020838609 No Longer Active Piotr Daley DO Active PREDNISONE 20 MG ORAL TABLET 1 tablet twice daily for 2 days, then 1 tablet once daily for 2 days PREDNISONE 32148003323 No Longer Active Piotr Daley DO Active PROMETHAZINE HCL 25 MG ORAL TABLET 1 four times a day as needed for nausea/ vomiting PROMETHAZINE HCL 38687868124 No Longer Active Piotr Daley DO Active TUSSIONEX PENNKINETIC ER 10-8 MG/5ML ORAL SUSPENSION EXTENDED RELEASE 5ml po q12hr PRN Cough HYDROCOD POLST-CHLORPHEN POLST 56233711357 No Longer Active Piotr Daley DO Active AZITHROMYCIN 250 MG ORAL TABLET 2 po qd x 1 day, then 1 po qd x 4 days 10/13 AZITHROMYCIN 83581125062 No Longer Active Piotr Daley DO Active AZITHROMYCIN 250 MG ORAL TABLET 2 po qd x 1 day, then 1 po qd x 4 days 05/07 AZITHROMYCIN 38836701591 No Longer Active Piotr Daley DO Active LISINOPRIL-HYDROCHLOROTHIAZIDE 10-12.5 MG ORAL TABLET 1 tab by mouth daily LISINOPRIL-HYDROCHLOROTHIAZIDE 32819159720 Active Sirisha Finneganughn [employer] Active LISINOPRIL 10 MG ORAL TABLET 1/2-1 tab po every other day LISINOPRIL 11956145776 No Longer Active Piotr Daley DO Active VENTOLIN HFA 108 (90 Base) MCG/ACT INHALATION AEROSOL SOLUTION 2 puffs four times a day PRN cough ALBUTEROL SULFATE 91624793670 No Longer Active Piotr Daley DO Active NYSTATIN-TRIAMCINOLONE 563588-3.1 UNIT/GM-% EXTERNAL CREAM Apply to area BID NYSTATIN-TRIAMCINOLONE 85277569753 No Longer Active Alena Chavira [employer] Active PHISOHEX 3 % LIQD Use Directed HEXACHLOROPHENE 96204811155 No Longer Active Sandra [place] Active AZITHROMYCIN 250 MG ORAL TABLET 2 po qd x 1 day, then 1 po qd x 4 days 10/21 AZITHROMYCIN 93568442263 No Longer Active Katrina Rinaldi MD PhD Active AZITHROMYCIN 250 MG ORAL TABLET 2 po qd x 1 day, then 1 po qd x 4 days 10/16 AZITHROMYCIN 03579453317 No Longer Active Piotr Daley DO Active AZITHROMYCIN 500 MG INTRAVENOUS SOLUTION RECONSTITUTED 1 po q day AZITHROMYCIN 49336133210 No Longer Active Piotr Daley DO Active NYSTATIN-TRIAMCINOLONE 679774-3.1 UNIT/GM-% EXTERNAL CREAM apply bid NYSTATIN-TRIAMCINOLONE 36523444670 No Longer Active Piotr Daley DO Active IBUPROFEN 800 MG ORAL TABLET 1 po q 8 hours prn pain sparinly IBUPROFEN 56633249043 No Longer Active Piotr Daley DO Active VITAMIN D3 5000 UNIT ORAL CAPSULE 1 po daily CHOLECALCIFEROL 66434495651 Active Piotr Daley DO Active IBUPROFEN 800 MG ORAL TABLET 1 po q 8 hours prn pain sparinly IBUPROFEN 800 MG ORAL TABLET 723847 IBUPROFEN Inactive NYSTATIN-TRIAMCINOLONE 397142-5.1 UNIT/GM-% EXTERNAL CREAM apply bid NYSTATIN-TRIAMCINOLONE 260802-5.1 UNIT/GM-% EXTERNAL CREAM 4251494 NYSTATIN-TRIAMCINOLONE Inactive AZITHROMYCIN 500 MG INTRAVENOUS SOLUTION RECONSTITUTED 1 po q day AZITHROMYCIN 500 MG INTRAVENOUS SOLUTION RECONSTITUTED 97701659710 AZITHROMYCIN Inactive VENTOLIN HFA 108 (90 Base) MCG/ACT INHALATION AEROSOL SOLUTION 2 puffs four times a day PRN cough VENTOLIN HFA 108 (90 Base) MCG/ ACT INHALATION AEROSOL SOLUTION ALBUTEROL SULFATE Inactive LISINOPRIL 10 MG ORAL TABLET 1/2-1 tab po every other day LISINOPRIL 10 MG ORAL TABLET 952301 LISINOPRIL Inactive TUSSIONEX PENNKINETIC ER 10-8 MG/5ML ORAL SUSPENSION EXTENDED RELEASE 5ml po q12hr PRN Cough TUSSIONEX PENNKINETIC ER 10-8 MG/5ML ORAL SUSPENSION EXTENDED RELEASE HYDROCOD POLST-CHLORPHEN POLST Inactive PROMETHAZINE HCL 25 MG ORAL TABLET 1 four times a day as needed for nausea/ vomiting PROMETHAZINE HCL 25 MG ORAL TABLET 295673 PROMETHAZINE HCL Inactive PREDNISONE 20 MG ORAL TABLET 1 tablet twice daily for 2 days, then 1 tablet once daily for 2 days PREDNISONE 20 MG ORAL TABLET 738295 PREDNISONE Inactive WARFARIN SODIUM 4 MG ORAL TABLET 1 tab every evening WARFARIN SODIUM 4 MG ORAL TABLET 019840 WARFARIN SODIUM Inactive LOMOTIL 2.5-0.025 MG ORAL TABLET 1 to 2 four times a day as needed for diarrhea LOMOTIL 2.5-0.025 MG ORAL TABLET 2890984 DIPHENOXYLATE-ATROPINE Inactive IBUPROFEN 800 MG ORAL TABLET 1 tab every 8 hours as needed 07/12 IBUPROFEN 800 MG ORAL TABLET 317414 IBUPROFEN Inactive PREDNISONE 20 MG ORAL TABLET 2 tablets today, then 1 tablet days 2 through 4 PREDNISONE 20 MG ORAL TABLET 314159 PREDNISONE Inactive GABAPENTIN 300 MG ORAL CAPSULE 1 po q hs for nerve pain GABAPENTIN 300 MG ORAL CAPSULE 769177 GABAPENTIN Inactive TRAMADOL HCL 50 MG ORAL TABLET 1 po tid with ES Tylenol TRAMADOL HCL 50 MG ORAL TABLET 862733 TRAMADOL HCL Inactive PROAIR HFA 108 (90 BASE) MCG/ACT INHALATION AEROSOL SOLUTION 1-2 puffs four times a day as needed PROAIR HFA 108 (90 BASE) MCG/ACT INHALATION AEROSOL SOLUTION ALBUTEROL SULFATE Inactive PREDNISONE 20 MG ORAL TABLET two tabs by mouth today, then one tab by mouth days two and three PREDNISONE 20 MG ORAL TABLET 253313 PREDNISONE Inactive TESSALON PERLES 100 MG ORAL CAPSULE 1-2 tablet by mouth 3 times daily 04/16 TESSALON PERLES 100 MG ORAL CAPSULE 444861 BENZONATATE Inactive PREDNISONE 10 MG ORAL TABLET 1 tablet by mouth daily PREDNISONE 10 MG ORAL TABLET 732091 PREDNISONE Inactive NYSTATIN 895481 UNIT/GM EXTERNAL CREAM Apply to rash 2-3 times a day and may repeat as needed NYSTATIN 618483 UNIT/GM EXTERNAL CREAM 485481 NYSTATIN Inactive TRIAMCINOLONE ACETONIDE 0.1 % EXTERNAL CREAM apply bid sparingly to rash 2017 TRIAMCINOLONE ACETONIDE 0.1 % EXTERNAL CREAM 5408740 TRIAMCINOLONE ACETONIDE Inactive AZITHROMYCIN 250 MG ORAL TABLET 2 po qd x 1 day, then 1 po qd x 4 days 10/16 AZITHROMYCIN 250 MG ORAL TABLET 527932 AZITHROMYCIN Inactive AZITHROMYCIN 250 MG ORAL TABLET 2 po qd x 1 day, then 1 po qd x 4 days 10/21 AZITHROMYCIN 250 MG ORAL TABLET 294382 AZITHROMYCIN Inactive NYSTATIN-TRIAMCINOLONE 328180-8.1 UNIT/GM-% EXTERNAL CREAM Apply to area BID NYSTATIN-TRIAMCINOLONE 154439-6.1 UNIT/GM-% EXTERNAL CREAM 1662157 NYSTATIN-TRIAMCINOLONE Inactive AZITHROMYCIN 250 MG ORAL TABLET 2 po qd x 1 day, then 1 po qd x 4 days 05/07 AZITHROMYCIN 250 MG ORAL TABLET 582573 AZITHROMYCIN Inactive AZITHROMYCIN 250 MG ORAL TABLET 2 po qd x 1 day, then 1 po qd x 4 days 10/13 AZITHROMYCIN 250 MG ORAL TABLET 494594 AZITHROMYCIN Inactive AZITHROMYCIN 250 MG ORAL TABLET 2 po qd x 1 day, then 1 po qd x 4 days 07/12 AZITHROMYCIN 250 MG ORAL TABLET 584212 AZITHROMYCIN Inactive PREDNISONE 20 MG ORAL TABLET 2 tabs daily for 3 days, 1 tab daily for 3 days, 1/2 tab daily for 2 days PREDNISONE 20 MG ORAL TABLET 745534 PREDNISONE Inactive DOXYCYCLINE HYCLATE 100 MG ORAL CAPSULE 1 cap by mouth BID x10 days DOXYCYCLINE HYCLATE 100 MG ORAL CAPSULE 1639663 DOXYCYCLINE HYCLATE Inactive ZITHROMAX 250 MG ORAL TABLET Take two (2 ) tablets day one, then one (1) tablet a day for four (4) more days ZITHROMAX 250 MG ORAL TABLET 380197 AZITHROMYCIN Inactive Advance Directives Directive Description Start [...] Ag - Chemistry sodium, serum 141 mmol/L 351-223 0795/12/17 carbon dioxide, venous blood 30.9 mmol/L 21.0-32.0 [...] 50-136 Encounters Code Encounter Date Provider Facility CPT-83197 [id number] Vst-Est Level IV 08:51:04 RN MANAGED CARE Piotr Daley [facility] CPT-63258 [id number] Vst-Est Level III 14:29:05 CDT Piotr Wilson [facility] CPT-53219 Level 3 Est. Patient 15:59:25 RN MANAGED CARE Piotr Daley [facility] CPT-74454 Level 3 Est. Patient 12:33:59 RN MANAGED CARE Piotr Daley [facility] CPT-46023 Level 3 Est. Patient 15:56:17 RN MANAGED CARE Piotr Daley [facility] CPT-46436 Level 3 Est. Patient 10:34:54 RN MANAGED CARE Piotr Daley [facility] CPT-86301 Level 3 Est. Patient 17:10:19 CDT Nella Harris APRN [facility] CPT-86160 Level 3 Est. Patient 10:48:17 RN MANAGED CARE Matthew Rangel MD [facility] CPT-64469 Level 4 Est. Patient 17:15:07 RN MANAGED CARE Piotr Daley [facility] CPT-34866 Level 3 Est. Patient 12:46:13 RN MANAGED CARE Piotr Daley [facility] CPT-09815 Level 3 Est. Patient 15:14:31 RN MANAGED CARE Piotr Daley [facility] CPT-87392 Level 3 Est. Patient 09:20:13 RN MANAGED CARE Piotr Daley [facility] CPT-05211 Level 3 Est. Patient 09:49:40 CDT Piotr Daley [facility] CPT-71209 Level 3 Est. Patient 16:28:11 CDT Piotr Wilson Edi [facility] CPT-61239 Level 3 Est. Patient 12:41:58 RN MANAGED CARE Piotr Daley [facility] CPT-96565 Level 3 Est. Patient 09:21:24 CDT Piotr Wilson Edi [facility] CPT-02119 Level 3 Est. Patient 09:21:11 CDT Piotr Wilson Edi [facility] CPT-90706 Level 3 Est. Patient 11:16:29 RN MANAGED CARE Piotr Daley [facility] CPT-63727 Level 3 Est. Patient 18:40:19 RN MANAGED CARE Piotr Daley [facility] CPT-44483 Level 3 Est. Patient 19:30:50 CDT Piotr Daley [facility] CPT-56280 Level 3 Est. Patient 22:06:44 CDT Katrina Rinaldi MD PhD [facility] CPT-78218 Level 3 Est. Patient 14:20:00 CDT Piotr Daley [facility] CPT-08857 Level 3 Est. Patient 14:15:22 RN MANAGED CARE Piotr Daley [facility] CPT-95378 Level 3 Est. Patient 20:19:57 RN MANAGED CARE Piotr Daley [facility] CPT-60769 Level 3 Est. Patient 16:44:32 CDT Piotr Daley [facility] CPT-48479 Level 3 Est. Patient 08:48:46 RN MANAGED CARE Piotr Daley [facility] CPT-42198 Level 3 Est. Patient 21:01:21 CDT Piotr Daley [facility] Procedures Code Procedure Name Date Entry Date Standard Description CPT-Cryo Cryotherapy 08:51:04 [facility] CPT-G0439 Subsequent Annual Wellness Exam 08:51:04 [facility] CPT-93993 Sacroiliac jt < 3V - XRAY USE ONLY 16:45:19 [facility] 05/09 CPT-04935 LS spine comp w obliques - XRAY USE ONLY 14:52:26 [facility] CPT-05647 Chest, 2 views 12:55:58 [facility] CPT-G0439 Subsequent Annual Wellness Exam 10:34:52 [facility] CPT-59183 BMP - LAB USE ONLY 17:19:11 RN MANAGED CARE CPT-47378 PT/INR - LAB USE ONLY 17:19:10 [facility] CPT-94009 Venipuncture Draw Fee 17:19:10 RN [facility]NAG[facility] CARE CPT-05990 PT/INR - LAB USE ONLY 08:12:25 [facility] CPT-37780 Venipuncture Draw Fee 08:12:24 RN MANAGED CARE CPT-32115 Venipuncture Draw Fee 11:31:07 RN MANAGED CARE CPT-46632 TPSA - LAB USE ONLY 11:31:07 RN MANAGED CARE CPT-33599 PT/INR - LAB USE ONLY 11:31:07 RN MANAGED CARE CPT-G0439 Subsequent Annual Wellness Exam 09:59:29 RN MANAGED CARE CPT-21479 Creatinine - LAB USE ONLY 14:37:55 RN MANAGED CARE CPT-11551 PT/INR - LAB USE ONLY 14:37:55 RN MANAGED CARE CPT-43027 Venipuncture Draw Fee 14:37:55 RN MANAGED CARE CPT-13291 LS spine comp w obliques - XRAY USE ONLY 12:59:25 RN MANAGED CARE CPT-91390 PT/INR - LAB USE ONLY 13:49:20 CDT CPT-59252 Venipuncture Draw Fee 13:49:19 CDT CPT-74880 PT/INR - LAB USE ONLY 15:48:49 CDT CPT-98540 Venipuncture Draw Fee 15:48:49 CDT CPT-82777 Venipuncture Draw Fee 11:31:59 CDT CPT-85766 PT/INR - LAB USE ONLY 11:31:59 CDT CPT-44488 Venipuncture Draw Fee 13:29:15 CDT CPT-47342 Thoracolumbar AP/Lat 15:19:19 RN [facility] CARE CPT-G0438 Initial Annual Wellness Exam 12:18:54 RN [facility] CPT-76683 Knee 3V 09:57:38 CDT CPT-OV Office Visit 15:45:01 RN [facility] CPT-92931 Abd compl w upright 17:10:25 CDT
[2018-07-18] MEDS ORDERED: SEVOFLURANE (ULTANE) 15 ML INHAL SOLN ONE ×4 (07:28→07:33)
--- OUTSIDE RECORDS SUMMARY | 2018-07-18 07:28 | XMS REPORT | Clinical Summary ---
Author Author Admin, [employer] Address Unknown Phone Unavailable Allergies, Adverse Reactions, [...] neoplasm of prostate V10.46 Active Alina Meyers SHADING PAINTER Personal history of malignant neoplasm of prostate Coronary artery disease 414.00 Active Alina Meyers APRN Coronary atherosclerosis of unspecified type of vessel, ute or graft Back pain, thoracic region, left [...] LPN Seborrheic keratosis ICD-702.19 Inactive Sirisha Chen RENOVATOR MACHINE OPERATOR Bronchitis-Acute ICD-466.0 Inactive Piotr Daley DO Leg pain, right ICD-729.5 Inactive Sirisha Chen RENOVATOR MACHINE OPERATOR Right leg pain ICD-729.5 Inactive Sirisha Chen RENOVATOR MACHINE OPERATOR Bronchitis-Acute ICD-466.0 Inactive Sirisha Chen RENOVATOR MACHINE OPERATOR Knee pain, left ICD-719.46 Inactive Sirisha Chen RENOVATOR MACHINE OPERATOR Actinic keratoses ICD-702.0 Inactive Sirihsa Chen RENOVATOR MACHINE OPERATOR Back pain, thoracic region, left ICD-724.1 Inactive Piotr Daley DO Thoracic back pain ICD-724.5 Inactive Sirisha Chen RENOVATOR MACHINE OPERATOR Back pain lumbar ICD-724.2 Inactive Sirisha Chen RENOVATOR MACHINE OPERATOR Insect bite ICD-919.4 Inactive Sirisha Chen RENOVATOR MACHINE OPERATOR Pruritus ICD-698.9 Inactive Sirisha Chen RENOVATOR MACHINE OPERATOR 04/09 Bronchitis-Acute ICD-466.0 Inactive Sirisha Chen RENOVATOR MACHINE OPERATOR Dyspnea ICD-786.09 Inactive Sirisha Chen RENOVATOR MACHINE OPERATOR 05/09 Pes anserinus bursitis, right ICD-726.61 Inactive Piotr Daley DO Medication List Medication Instructions Start Date Stop Date Generic Name NDC Status Provider Patient Instruction TRIAMCINOLONE ACETONIDE 0.1 % EXTERNAL CREAM apply bid sparingly to rash 2017 TRIAMCINOLONE ACETONIDE 37058882727 No Longer Active Piotr Daley DO Active NYSTATIN 928216 UNIT/GM EXTERNAL CREAM Apply to rash 2-3 times a day and may repeat as needed NYSTATIN 97973945632 No Longer Active Piotr Daley DO Active WARFARIN SODIUM 4 MG ORAL TABLET 1 tablet by mouth daily WARFARIN SODIUM 49924177703 Active Sirisha Chen LPN Active MELOXICAM 15 MG ORAL TABLET 1 po q day for pain with food MELOXICAM 68500361462 Active Piotr Daley DO Active PREDNISONE 10 MG ORAL TABLET 1 tablet by mouth daily PREDNISONE 86084486317 No Longer Active Emelyn Norris Active TESSALON PERLES 100 MG ORAL CAPSULE 1-2 tablet by mouth 3 times daily 04/16 BENZONATATE 54995048958 No Longer Active Emelyn Norris Active PREDNISONE 20 MG ORAL TABLET two tabs by mouth today, then one tab by mouth days two and three PREDNISONE 67692026469 No Longer Active Piotr Daley DO Active CYCLOBENZAPRINE HCL 10 MG ORAL TABLET 1 tablet by mouth three times daily as needed for muscle spasm/pain CYCLOBENZAPRINE HCL 79829538481 Active Sirisha Chen LPN Active ZITHROMAX 250 MG ORAL TABLET Take two (2 ) tablets day one, then one (1) tablet a day for four (4) more days AZITHROMYCIN 00274453246 No Longer Active Piotr Daley DO Active PROAIR HFA 108 (90 BASE) MCG/ACT INHALATION AEROSOL SOLUTION 1-2 puffs four times a day as needed ALBUTEROL SULFATE 76814455857 No Longer Active Emelyn Norris Active DOXYCYCLINE HYCLATE 100 MG ORAL CAPSULE 1 cap by mouth BID x10 days DOXYCYCLINE HYCLATE 66123286518 No Longer Active Nella Harris APRN Active PREDNISONE 20 MG ORAL TABLET 2 tabs daily for 3 days, 1 tab daily for 3 days, 1/2 tab daily for 2 days PREDNISONE 08363820481 No Longer Active Matthew Rangel MD Active TRAMADOL HCL 50 MG ORAL TABLET 1 po tid with ES Tylenol TRAMADOL HCL 65650770639 No Longer Active Matthew Rangel MD Active GABAPENTIN 300 MG ORAL CAPSULE 1 po q hs for nerve pain GABAPENTIN 30418230099 No Longer Active Matthew Rangel MD Active PREDNISONE 20 MG ORAL TABLET 2 tablets today, then 1 tablet days 2 through 4 PREDNISONE 95056901246 No Longer Active Piotr Daley DO Active AZITHROMYCIN 250 MG ORAL TABLET 2 po qd x 1 day, then 1 po qd x 4 days 07/12 AZITHROMYCIN 64033487315 No Longer Active Piotr Daley DO Active IBUPROFEN 800 MG ORAL TABLET 1 tab every 8 hours as needed 07/12 IBUPROFEN 22638085869 No Longer Active Piotr Daley DO Active LOMOTIL 2.5-0.025 MG ORAL TABLET 1 to 2 four times a day as needed for diarrhea DIPHENOXYLATE-ATROPINE 71395629164 No Longer Active Piotr Daley DO Active WARFARIN SODIUM 4 MG ORAL TABLET 1 tab every evening WARFARIN SODIUM 83299381651 No Longer Active Piotr Daley DO Active PREDNISONE 20 MG ORAL TABLET 1 tablet twice daily for 2 days, then 1 tablet once daily for 2 days PREDNISONE 80167925724 No Longer Active Piotr Daley DO Active PROMETHAZINE HCL 25 MG ORAL TABLET 1 four times a day as needed for nausea/ vomiting PROMETHAZINE HCL 07382041690 No Longer Active Piotr Daley DO Active TUSSIONEX PENNKINETIC ER 10-8 MG/5ML ORAL SUSPENSION EXTENDED RELEASE 5ml po q12hr PRN Cough HYDROCOD POLST-CHLORPHEN POLST 76071774961 No Longer Active Piotr Daley DO Active AZITHROMYCIN 250 MG ORAL TABLET 2 po qd x 1 day, then 1 po qd x 4 days 10/13 AZITHROMYCIN 54937222141 No Longer Active Piotr Daley DO Active AZITHROMYCIN 250 MG ORAL TABLET 2 po qd x 1 day, then 1 po qd x 4 days 05/07 AZITHROMYCIN 66658388550 No Longer Active Piotr Daley DO Active LISINOPRIL-HYDROCHLOROTHIAZIDE 10-12.5 MG ORAL TABLET 1 tab by mouth daily LISINOPRIL-HYDROCHLOROTHIAZIDE 74225337608 Active Sirishaandre Jimn RENOVATOR MACHINE OPERATOR Active LISINOPRIL 10 MG ORAL TABLET 1/2-1 tab po every other day LISINOPRIL 13431174991 No Longer Active Piotr Daley DO Active VENTOLIN HFA 108 (90 Base) MCG/ACT INHALATION AEROSOL SOLUTION 2 puffs four times a day PRN cough ALBUTEROL SULFATE 26989233535 No Longer Active Piotr Daley DO Active NYSTATIN-TRIAMCINOLONE 124428-5.1 UNIT/GM-% EXTERNAL CREAM Apply to area BID NYSTATIN-TRIAMCINOLONE 55947787655 No Longer Active Alena Chavira RENOVATOR MACHINE OPERATOR Active PHISOHEX 3 % LIQD Use Directed HEXACHLOROPHENE 49571677747 No Longer Active Sandra Fairfield Active AZITHROMYCIN 250 MG ORAL TABLET 2 po qd x 1 day, then 1 po qd x 4 days 10/21 AZITHROMYCIN 97340537376 No Longer Active Katrina Rinaldi MD PhD Active AZITHROMYCIN 250 MG ORAL TABLET 2 po qd x 1 day, then 1 po qd x 4 days 10/16 AZITHROMYCIN 17608341907 No Longer Active Piotr Daley DO Active AZITHROMYCIN 500 MG INTRAVENOUS SOLUTION RECONSTITUTED 1 po q day AZITHROMYCIN 30560133714 No Longer Active Piotr Daley DO Active NYSTATIN-TRIAMCINOLONE 881350-0.1 UNIT/GM-% EXTERNAL CREAM apply bid NYSTATIN-TRIAMCINOLONE 55947536509 No Longer Active Piotr Daley DO Active IBUPROFEN 800 MG ORAL TABLET 1 po q 8 hours prn pain sparinly IBUPROFEN 43927487067 No Longer Active Piotr Daley Active VITAMIN D3 5000 UNIT ORAL CAPSULE 1 po daily CHOLECALCIFEROL 91572586465 Active Piotr Daley DO Active IBUPROFEN 800 MG ORAL TABLET 1 po q 8 hours prn pain sparinly IBUPROFEN 800 MG ORAL TABLET 920001 IBUPROFEN Inactive NYSTATIN-TRIAMCINOLONE 674056-2.1 UNIT/GM-% EXTERNAL CREAM apply bid NYSTATIN-TRIAMCINOLONE 893948-5.1 UNIT/GM-% EXTERNAL CREAM 8948835 NYSTATIN-TRIAMCINOLONE Inactive AZITHROMYCIN 500 MG INTRAVENOUS SOLUTION RECONSTITUTED 1 po q day AZITHROMYCIN 500 MG INTRAVENOUS SOLUTION RECONSTITUTED 72253668633 AZITHROMYCIN Inactive VENTOLIN HFA 108 (90 Base) MCG/ACT INHALATION AEROSOL SOLUTION 2 puffs four times a day PRN cough VENTOLIN HFA 108 (90 Base) MCG/ ACT INHALATION AEROSOL SOLUTION ALBUTEROL SULFATE Inactive LISINOPRIL 10 MG ORAL TABLET 1/2-1 tab po every other day LISINOPRIL 10 MG ORAL TABLET 712735 LISINOPRIL Inactive TUSSIONEX PENNKINETIC ER 10-8 MG/5ML ORAL SUSPENSION EXTENDED RELEASE 5ml po q12hr PRN Cough TUSSIONEX PENNKINETIC ER 10-8 MG/5ML ORAL SUSPENSION EXTENDED RELEASE HYDROCOD POLST-CHLORPHEN POLST Inactive PROMETHAZINE HCL 25 MG ORAL TABLET 1 four times a day as needed for nausea/ vomiting PROMETHAZINE HCL 25 MG ORAL TABLET 782220 PROMETHAZINE HCL Inactive PREDNISONE 20 MG ORAL TABLET 1 tablet twice daily for 2 days, then 1 tablet once daily for 2 days PREDNISONE 20 MG ORAL TABLET 825962 PREDNISONE Inactive WARFARIN SODIUM 4 MG ORAL TABLET 1 tab every evening WARFARIN SODIUM 4 MG ORAL TABLET 216263 WARFARIN SODIUM Inactive LOMOTIL 2.5-0.025 MG ORAL TABLET 1 to 2 four times a day as needed for diarrhea LOMOTIL 2.5-0.025 MG ORAL TABLET 2120670 DIPHENOXYLATE-ATROPINE Inactive IBUPROFEN 800 MG ORAL TABLET 1 tab every 8 hours as needed 07/12 IBUPROFEN 800 MG ORAL TABLET 537025 IBUPROFEN Inactive PREDNISONE 20 MG ORAL TABLET 2 tablets today, then 1 tablet days 2 through 4 PREDNISONE 20 MG ORAL TABLET 602852 PREDNISONE Inactive GABAPENTIN 300 MG ORAL CAPSULE 1 po q hs for nerve pain GABAPENTIN 300 MG ORAL CAPSULE 272738 GABAPENTIN Inactive TRAMADOL HCL 50 MG ORAL TABLET 1 po tid with ES Tylenol TRAMADOL HCL 50 MG ORAL TABLET 478038 TRAMADOL HCL Inactive PROAIR HFA 108 (90 BASE) MCG/ACT INHALATION AEROSOL SOLUTION 1-2 puffs four times a day as needed PROAIR HFA 108 (90 BASE) MCG/ACT INHALATION AEROSOL SOLUTION ALBUTEROL SULFATE Inactive PREDNISONE 20 MG ORAL TABLET two tabs by mouth today, then one tab by mouth days two and three PREDNISONE 20 MG ORAL TABLET 143545 PREDNISONE Inactive TESSALON PERLES 100 MG ORAL CAPSULE 1-2 tablet by mouth 3 times daily 04/16 TESSALON PERLES 100 MG ORAL CAPSULE 737580 BENZONATATE Inactive PREDNISONE 10 MG ORAL TABLET 1 tablet by mouth daily PREDNISONE 10 MG ORAL TABLET 810209 PREDNISONE Inactive NYSTATIN 600448 UNIT/GM EXTERNAL CREAM Apply to rash 2-3 times a day and may repeat as needed NYSTATIN 955156 UNIT/GM EXTERNAL CREAM 759736 NYSTATIN Inactive TRIAMCINOLONE ACETONIDE 0.1 % EXTERNAL CREAM apply bid sparingly to rash 2017 TRIAMCINOLONE ACETONIDE 0.1 % EXTERNAL CREAM 1020977 TRIAMCINOLONE ACETONIDE Inactive AZITHROMYCIN 250 MG ORAL TABLET 2 po qd x 1 day, then 1 po qd x 4 days 10/16 AZITHROMYCIN 250 MG ORAL TABLET 140633 AZITHROMYCIN Inactive AZITHROMYCIN 250 MG ORAL TABLET 2 po qd x 1 day, then 1 po qd x 4 days 10/21 AZITHROMYCIN 250 MG ORAL TABLET 864381 AZITHROMYCIN Inactive NYSTATIN-TRIAMCINOLONE 887284-0.1 UNIT/GM-% EXTERNAL CREAM Apply to area BID NYSTATIN-TRIAMCINOLONE 028779-0.1 UNIT/GM-% EXTERNAL CREAM 6613518 NYSTATIN-TRIAMCINOLONE Inactive AZITHROMYCIN 250 MG ORAL TABLET 2 po qd x 1 day, then 1 po qd x 4 days 05/07 AZITHROMYCIN 250 MG ORAL TABLET 781494 AZITHROMYCIN Inactive AZITHROMYCIN 250 MG ORAL TABLET 2 po qd x 1 day, then 1 po qd x 4 days 10/13 AZITHROMYCIN 250 MG ORAL TABLET 344968 AZITHROMYCIN Inactive AZITHROMYCIN 250 MG ORAL TABLET 2 po qd x 1 day, then 1 po qd x 4 days 07/12 AZITHROMYCIN 250 MG ORAL TABLET 002673 AZITHROMYCIN Inactive PREDNISONE 20 MG ORAL TABLET 2 tabs daily for 3 days, 1 tab daily for 3 days, 1/2 tab daily for 2 days PREDNISONE 20 MG ORAL TABLET 590387 PREDNISONE Inactive DOXYCYCLINE HYCLATE 100 MG ORAL CAPSULE 1 cap by mouth BID x10 days DOXYCYCLINE HYCLATE 100 MG ORAL CAPSULE 4338037 DOXYCYCLINE HYCLATE Inactive ZITHROMAX 250 MG ORAL TABLET Take two (2 ) tablets day one, then one (1) tablet a day for four (4) more days ZITHROMAX 250 MG ORAL TABLET 330502 AZITHROMYCIN Inactive Advance Directives Directive Description Start [...] Ag - Chemistry sodium, serum 141 mmol/L 437-960 7438/12/17 carbon dioxide, venous blood 30.9 mmol/L 21.0-32.0 [...] 50-136 Encounters Code Encounter Date Provider Facility CPT-22393 [id number] Vst-Est Level IV 08:51:04 NATIONAL SALES REPRESENTATIVE Piotr Daley [facility] CPT-12588 [id number] Vst-Est Level III 14:29:05 CDT Piotr Wilson [facility] CPT-23391 Level 3 Est. Patient 15:59:25 NATIONAL SALES REPRESENTATIVE Piotr Daley [facility] CPT-50553 Level 3 Est. Patient 12:33:59 NATIONAL SALES REPRESENTATIVE Piotr Daley [facility] CPT-87706 Level 3 Est. Patient 15:56:17 NATIONAL SALES REPRESENTATIVE Piotr Daley [facility] CPT-51586 Level 3 Est. Patient 10:34:54 NATIONAL SALES REPRESENTATIVE Piotr Wilson [facility] CPT-50676 Level 3 Est. Patient 17:10:19 CDT Nella Harris APRN [facility] CPT-87212 Level 3 Est. Patient 10:48:17 NATIONAL SALES REPRESENTATIVE Matthew Rangel MD [facility] CPT-16173 Level 4 Est. Patient 17:15:07 NATIONAL SALES REPRESENTATIVE Piotr Wilson [facility] CPT-19690 Level 3 Est. Patient 12:46:13 NATIONAL SALES REPRESENTATIVE Piotr Wilson [facility] CPT-92729 Level 3 Est. Patient 15:14:31 NATIONAL SALES REPRESENTATIVE Piotr Daley [facility] CPT-99200 Level 3 Est. Patient 09:20:13 NATIONAL SALES REPRESENTATIVE Piotr Wilson [facility] CPT-73139 Level 3 Est. Patient 09:49:40 CDT Piotr Wilson [facility] CPT-49717 Level 3 Est. Patient 16:28:11 CDT Piotr Wilson [facility] CPT-67940 Level 3 Est. Patient 12:41:58 NATIONAL SALES REPRESENTATIVE Piotr Daley [facility] CPT-78564 Level 3 Est. Patient 09:21:24 CDT Piotr Wilson [facility] CPT-37814 Level 3 Est. Patient 09:21:11 CDT Piotr Wilson [facility] CPT-86699 Level 3 Est. Patient 11:16:29 NATIONAL SALES REPRESENTATIVE Piotr Daley [facility] CPT-21133 Level 3 Est. Patient 18:40:19 NATIONAL SALES REPRESENTATIVE Piotr Daley [facility] CPT-06631 Level 3 Est. Patient 19:30:50 CDT Piotr Daley [facility] CPT-89444 Level 3 Est. Patient 22:06:44 CDT Katrina Rinaldi MD PhD [facility] CPT-44505 Level 3 Est. Patient 14:20:00 CDT Piotr Daley [facility] CPT-60266 Level 3 Est. Patient 14:15:22 NATIONAL SALES REPRESENTATIVE Piotr Daley [facility] CPT-87293 Level 3 Est. Patient 20:19:57 NATIONAL SALES REPRESENTATIVE Piotr Daley [facility] CPT-43302 Level 3 Est. Patient 16:44:32 CDT Piotr Daley [facility] CPT-52067 Level 3 Est. Patient 08:48:46 NATIONAL SALES REPRESENTATIVE Piotr Daley [facility] CPT-52439 Level 3 Est. Patient 21:01:21 CDT Piotr Daley [facility] Procedures Code Procedure Name Date Entry Date Standard Description CPT-Cryo Cryotherapy 08:51:04 [facility] CPT-G0439 Subsequent Annual Wellness Exam 08:51:04 [facility] CPT-77906 Sacroiliac jt < 3V - XRAY USE ONLY 16:45:19 NATIONAL SALES REPRESENTATIVE 05/09 CPT-25314 LS spine comp w obliques - XRAY USE ONLY 14:52:26 [facility] CPT-91060 Chest, 2 views 12:55:58 [facility] CPT-G0439 Subsequent Annual Wellness Exam 10:34:52 NATIONAL SALES REPRESENTATIVE CPT-19062 BMP - LAB USE ONLY 17:19:11 NATIONAL SALES REPRESENTATIVE CPT-21249 PT/INR - LAB USE ONLY 17:19:10 NATIONAL SALES REPRESENTATIVE CPT-65059 Venipuncture Draw Fee 17:19:10 NATIONAL SALES REPRESENTATIVE CPT-43423 PT/INR - LAB USE ONLY 08:12:25 NATIONAL SALES REPRESENTATIVE CPT-23056 Venipuncture Draw Fee 08:12:24 NATIONAL SALES REPRESENTATIVE CPT-75925 Venipuncture Draw Fee 11:31:07 NATIONAL SALES REPRESENTATIVE CPT-85251 TPSA - LAB USE ONLY 11:31:07 NATIONAL SALES REPRESENTATIVE CPT-09156 PT/INR - LAB USE ONLY 11:31:07 NATIONAL SALES REPRESENTATIVE CPT-G0439 Subsequent Annual Wellness Exam 09:59:29 NATIONAL SALES REPRESENTATIVE CPT-34208 Creatinine - LAB USE ONLY 14:37:55 NATIONAL SALES REPRESENTATIVE CPT-44757 PT/INR - LAB USE ONLY 14:37:55 NATIONAL SALES REPRESENTATIVE CPT-63484 Venipuncture Draw Fee 14:37:55 NATIONAL SALES REPRESENTATIVE CPT-35622 LS spine comp w obliques - XRAY USE ONLY 12:59:25 NATIONAL SALES REPRESENTATIVE CPT-43882 PT/INR - LAB USE ONLY 13:49:20 CDT CPT-77531 Venipuncture Draw Fee 13:49:19 CDT CPT-52080 PT/INR - LAB USE ONLY 15:48:49 CDT CPT-15776 Venipuncture Draw Fee 15:48:49 CDT CPT-04073 Venipuncture Draw Fee 11:31:59 CDT CPT-64108 PT/INR - LAB USE ONLY 11:31:59 CDT CPT-65645 Venipuncture Draw Fee 13:29:15 CDT CPT-03453 Thoracolumbar AP/Lat 15:19:19 NATIONAL SALES REPRESENTATIVE CPT-G0438 Initial Annual Wellness Exam 12:18:54 NATIONAL SALES REPRESENTATIVE CPT-01247 Knee 3V 09:57:38 CDT CPT-OV Office Visit 15:45:01 NATIONAL SALES REPRESENTATIVE CPT-67801 Abd compl w upright 17:10:25 CDT
--- OUTSIDE RECORDS SUMMARY | 2018-07-18 07:29 | XMS REPORT | Clinical Summary ---
Author Author Admin, [employer] [facility] Address Unknown Phone Unavailable Allergies, Adverse Reactions, [...] leg Health maintenance exam V70.0 Active Adriane Rooj LPN Routine general medical examination at a health care facility Actinic keratoses 702.0 Resolved Piotr Katie Edi DO Actinic keratosis Personal history of malignant neoplasm of prostate V10.46 Active Alina Meyers WAREHOUSE PROCESSOR Personal history of malignant neoplasm of prostate Coronary artery disease 414.00 Active Alina Meyers APRN Coronary atherosclerosis of unspecified type of vessel, [place] or graft Back pain, thoracic region, [...] LPN Seborrheic keratosis ICD-702.19 Inactive Sirisha Chen PEDIATRIC MEDICAL ASSISTANT Bronchitis-Acute ICD-466.0 Inactive Piotr Daley DO Leg pain, right ICD-729.5 Inactive Sirisha Chen PEDIATRIC MEDICAL ASSISTANT Right leg pain ICD-729.5 Inactive Sirisha Chen PEDIATRIC MEDICAL ASSISTANT Bronchitis-Acute ICD-466.0 Inactive Sirisha Chen PEDIATRIC MEDICAL ASSISTANT Knee pain, left ICD-719.46 Inactive Sirisha Chen PEDIATRIC MEDICAL ASSISTANT Actinic keratoses ICD-702.0 Inactive Sirisha Chen PEDIATRIC MEDICAL ASSISTANT Back pain, thoracic region, left ICD-724.1 Inactive Piotr Daley DO Thoracic back pain ICD-724.5 Inactive Sirisha Chen PEDIATRIC MEDICAL ASSISTANT Back pain lumbar ICD-724.2 Inactive Sirisha Chen PEDIATRIC MEDICAL ASSISTANT Insect bite ICD-919.4 Inactive Sirisha Chen PEDIATRIC MEDICAL ASSISTANT Pruritus ICD-698.9 Inactive Sirisha Chen PEDIATRIC MEDICAL ASSISTANT 04/09 Bronchitis-Acute ICD-466.0 Inactive Sirisha Chen PEDIATRIC MEDICAL ASSISTANT Dyspnea ICD-786.09 Inactive Sirisha Chen PEDIATRIC MEDICAL ASSISTANT 05/09 Pes anserinus bursitis, right ICD-726.61 Inactive Piotr Daley DO Medication List Medication Instructions Start Date Stop Date Generic Name NDC Status Provider Patient Instruction TRIAMCINOLONE ACETONIDE 0.1 % EXTERNAL CREAM apply bid sparingly to rash 2017 TRIAMCINOLONE ACETONIDE 19667845947 No Longer Active Piotr Daley DO Active NYSTATIN 459049 UNIT/GM EXTERNAL CREAM Apply to rash 2-3 times a day and may repeat as needed NYSTATIN 38744569173 No Longer Active Piotr Daley DO Active WARFARIN SODIUM 4 MG ORAL TABLET 1 tablet by mouth daily WARFARIN SODIUM 26588854263 Active Sirisha Chen LPN Active MELOXICAM 15 MG ORAL TABLET 1 po q day for pain with food MELOXICAM 55720684132 Active Piotr Daley DO Active PREDNISONE 10 MG ORAL TABLET 1 tablet by mouth daily PREDNISONE 68981979711 No Longer Active Emelyn Norris Active TESSALON PERLES 100 MG ORAL CAPSULE 1-2 tablet by mouth 3 times daily 04/16 BENZONATATE 71659997422 No Longer Active Emelyn Norris Active PREDNISONE 20 MG ORAL TABLET two tabs by mouth today, then one tab by mouth days two and three PREDNISONE 63044457719 No Longer Active Piotr Daley DO Active CYCLOBENZAPRINE HCL 10 MG ORAL TABLET 1 tablet by mouth three times daily as needed for muscle spasm/pain CYCLOBENZAPRINE HCL 63314534064 Active Sirisha Chen LPN Active ZITHROMAX 250 MG ORAL TABLET Take two (2 ) tablets day one, then one (1) tablet a day for four (4) more days AZITHROMYCIN 39081491219 No Longer Active Piotr Daley DO Active PROAIR HFA 108 (90 BASE) MCG/ACT INHALATION AEROSOL SOLUTION 1-2 puffs four times a day as needed ALBUTEROL SULFATE 41652012988 No Longer Active Emelyn Norris Active DOXYCYCLINE HYCLATE 100 MG ORAL CAPSULE 1 cap by mouth BID x10 days DOXYCYCLINE HYCLATE 92187152263 No Longer Active Nella Harris APRN Active PREDNISONE 20 MG ORAL TABLET 2 tabs daily for 3 days, 1 tab daily for 3 days, 1/2 tab daily for 2 days PREDNISONE 96977912523 No Longer Active Matthew Rangel MD Active TRAMADOL HCL 50 MG ORAL TABLET 1 po tid with ES Tylenol TRAMADOL HCL 28721505298 No Longer Active Matthew Rangel MD Active GABAPENTIN 300 MG ORAL CAPSULE 1 po q hs for nerve pain GABAPENTIN 40231555488 No Longer Active Matthew Rangel MD Active PREDNISONE 20 MG ORAL TABLET 2 tablets today, then 1 tablet days 2 through 4 PREDNISONE 56484196398 No Longer Active Piotr Daley DO Active AZITHROMYCIN 250 MG ORAL TABLET 2 po qd x 1 day, then 1 po qd x 4 days 07/12 AZITHROMYCIN 61904132637 No Longer Active Piotr Daley DO Active IBUPROFEN 800 MG ORAL TABLET 1 tab every 8 hours as needed 07/12 IBUPROFEN 00227754443 No Longer Active Piotr Daley DO Active LOMOTIL 2.5-0.025 MG ORAL TABLET 1 to 2 four times a day as needed for diarrhea DIPHENOXYLATE-ATROPINE 84102616963 No Longer Active Piotr Daley DO Active WARFARIN SODIUM 4 MG ORAL TABLET 1 tab every evening WARFARIN SODIUM 89099263008 No Longer Active Piotr Daley DO Active PREDNISONE 20 MG ORAL TABLET 1 tablet twice daily for 2 days, then 1 tablet once daily for 2 days PREDNISONE 30103502822 No Longer Active Piotr Daley DO Active PROMETHAZINE HCL 25 MG ORAL TABLET 1 four times a day as needed for nausea/ vomiting PROMETHAZINE HCL 23092733606 No Longer Active Piotr Daley DO Active TUSSIONEX PENNKINETIC ER 10-8 MG/5ML ORAL SUSPENSION EXTENDED RELEASE 5ml po q12hr PRN Cough HYDROCOD POLST-CHLORPHEN POLST 04956139458 No Longer Active Piotr Daley DO Active AZITHROMYCIN 250 MG ORAL TABLET 2 po qd x 1 day, then 1 po qd x 4 days 10/13 AZITHROMYCIN 31839206241 No Longer Active Piotr Daley DO Active AZITHROMYCIN 250 MG ORAL TABLET 2 po qd x 1 day, then 1 po qd x 4 days 05/07 AZITHROMYCIN 11560735729 No Longer Active Piotr Daley DO Active LISINOPRIL-HYDROCHLOROTHIAZIDE 10-12.5 MG ORAL TABLET 1 tab by mouth daily LISINOPRIL-HYDROCHLOROTHIAZIDE 65435457914 Active Piotr Daley DO Active LISINOPRIL 10 MG ORAL TABLET 1/2-1 tab po every other day LISINOPRIL 12683944444 No Longer Active Piotr Daley DO Active VENTOLIN HFA 108 (90 Base) MCG/ACT INHALATION AEROSOL SOLUTION 2 puffs four times a day PRN cough ALBUTEROL SULFATE 09743084110 No Longer Active Piotr Daley DO Active NYSTATIN-TRIAMCINOLONE 594811-0.1 UNIT/GM-% EXTERNAL CREAM Apply to area BID NYSTATIN-TRIAMCINOLONE 30359398846 No Longer Active Alena Chavira PEDIATRIC MEDICAL ASSISTANT Active PHISOHEX 3 % LIQD Use Directed HEXACHLOROPHENE 45793969777 No Longer Active Sandra Lockney Active AZITHROMYCIN 250 MG ORAL TABLET 2 po qd x 1 day, then 1 po qd x 4 days 10/21 AZITHROMYCIN 46998026183 No Longer Active Katrina Rinaldi MD PhD Active AZITHROMYCIN 250 MG ORAL TABLET 2 po qd x 1 day, then 1 po qd x 4 days 10/16 AZITHROMYCIN 50473974913 No Longer Active Piotr Daley DO Active AZITHROMYCIN 500 MG INTRAVENOUS SOLUTION RECONSTITUTED 1 po q day AZITHROMYCIN 82934315935 No Longer Active Piotr Daley DO Active NYSTATIN-TRIAMCINOLONE 955889-1.1 UNIT/GM-% EXTERNAL CREAM apply bid NYSTATIN-TRIAMCINOLONE 04564481848 No Longer Active Piotr Daley DO Active IBUPROFEN 800 MG ORAL TABLET 1 po q 8 hours prn pain sparinly IBUPROFEN 46169354137 No Longer Active Piotr Daley DO Active VITAMIN D3 5000 UNIT ORAL CAPSULE 1 po daily CHOLECALCIFEROL 63097906914 Active Piotr Daley DO Active IBUPROFEN 800 MG ORAL TABLET 1 po q 8 hours prn pain sparinly IBUPROFEN 800 MG ORAL TABLET 113845 IBUPROFEN Inactive NYSTATIN-TRIAMCINOLONE 131122-6.1 UNIT/GM-% EXTERNAL CREAM apply bid NYSTATIN-TRIAMCINOLONE 690299-8.1 UNIT/GM-% EXTERNAL CREAM 0213213 NYSTATIN-TRIAMCINOLONE Inactive AZITHROMYCIN 500 MG INTRAVENOUS SOLUTION RECONSTITUTED 1 po q day AZITHROMYCIN 500 MG INTRAVENOUS SOLUTION RECONSTITUTED 52447172932 AZITHROMYCIN Inactive VENTOLIN HFA 108 (90 Base) MCG/ACT INHALATION AEROSOL SOLUTION 2 puffs four times a day PRN cough VENTOLIN HFA 108 (90 Base) MCG/ ACT INHALATION AEROSOL SOLUTION ALBUTEROL SULFATE Inactive LISINOPRIL 10 MG ORAL TABLET 1/2-1 tab po every other day LISINOPRIL 10 MG ORAL TABLET 924204 LISINOPRIL Inactive TUSSIONEX PENNKINETIC ER 10-8 MG/5ML ORAL SUSPENSION EXTENDED RELEASE 5ml po q12hr PRN Cough TUSSIONEX PENNKINETIC ER 10-8 MG/5ML ORAL SUSPENSION EXTENDED RELEASE HYDROCOD POLST-CHLORPHEN POLST Inactive PROMETHAZINE HCL 25 MG ORAL TABLET 1 four times a day as needed for nausea/ vomiting PROMETHAZINE HCL 25 MG ORAL TABLET 276731 PROMETHAZINE HCL Inactive PREDNISONE 20 MG ORAL TABLET 1 tablet twice daily for 2 days, then 1 tablet once daily for 2 days PREDNISONE 20 MG ORAL TABLET 337095 PREDNISONE Inactive WARFARIN SODIUM 4 MG ORAL TABLET 1 tab every evening WARFARIN SODIUM 4 MG ORAL TABLET 293809 WARFARIN SODIUM Inactive LOMOTIL 2.5-0.025 MG ORAL TABLET 1 to 2 four times a day as needed for diarrhea LOMOTIL 2.5-0.025 MG ORAL TABLET 3933445 DIPHENOXYLATE-ATROPINE Inactive IBUPROFEN 800 MG ORAL TABLET 1 tab every 8 hours as needed 07/12 IBUPROFEN 800 MG ORAL TABLET 154365 IBUPROFEN Inactive PREDNISONE 20 MG ORAL TABLET 2 tablets today, then 1 tablet days 2 through 4 PREDNISONE 20 MG ORAL TABLET 784971 PREDNISONE Inactive GABAPENTIN 300 MG ORAL CAPSULE 1 po q hs for nerve pain GABAPENTIN 300 MG ORAL CAPSULE 027868 GABAPENTIN Inactive TRAMADOL HCL 50 MG ORAL TABLET 1 po tid with ES Tylenol TRAMADOL HCL 50 MG ORAL TABLET 629719 TRAMADOL HCL Inactive PROAIR HFA 108 (90 BASE) MCG/ACT INHALATION AEROSOL SOLUTION 1-2 puffs four times a day as needed PROAIR HFA 108 (90 BASE) MCG/ACT INHALATION AEROSOL SOLUTION ALBUTEROL SULFATE Inactive PREDNISONE 20 MG ORAL TABLET two tabs by mouth today, then one tab by mouth days two and three PREDNISONE 20 MG ORAL TABLET 409077 PREDNISONE Inactive TESSALON PERLES 100 MG ORAL CAPSULE 1-2 tablet by mouth 3 times daily 04/16 TESSALON PERLES 100 MG ORAL CAPSULE 750827 BENZONATATE Inactive PREDNISONE 10 MG ORAL TABLET 1 tablet by mouth daily PREDNISONE 10 MG ORAL TABLET 752128 PREDNISONE Inactive NYSTATIN 468968 UNIT/GM EXTERNAL CREAM Apply to rash 2-3 times a day and may repeat as needed NYSTATIN 650560 UNIT/GM EXTERNAL CREAM 512626 NYSTATIN Inactive TRIAMCINOLONE ACETONIDE 0.1 % EXTERNAL CREAM apply bid sparingly to rash 2017 TRIAMCINOLONE ACETONIDE 0.1 % EXTERNAL CREAM 3991798 TRIAMCINOLONE ACETONIDE Inactive AZITHROMYCIN 250 MG ORAL TABLET 2 po qd x 1 day, then 1 po qd x 4 days 10/16 AZITHROMYCIN 250 MG ORAL TABLET 176207 AZITHROMYCIN Inactive AZITHROMYCIN 250 MG ORAL TABLET 2 po qd x 1 day, then 1 po qd x 4 days 10/21 AZITHROMYCIN 250 MG ORAL TABLET 902862 AZITHROMYCIN Inactive NYSTATIN-TRIAMCINOLONE 624178-7.1 UNIT/GM-% EXTERNAL CREAM Apply to area BID NYSTATIN-TRIAMCINOLONE 580807-9.1 UNIT/GM-% EXTERNAL CREAM 5467223 NYSTATIN-TRIAMCINOLONE Inactive AZITHROMYCIN 250 MG ORAL TABLET 2 po qd x 1 day, then 1 po qd x 4 days 05/07 AZITHROMYCIN 250 MG ORAL TABLET 157996 AZITHROMYCIN Inactive AZITHROMYCIN 250 MG ORAL TABLET 2 po qd x 1 day, then 1 po qd x 4 days 10/13 AZITHROMYCIN 250 MG ORAL TABLET 222592 AZITHROMYCIN Inactive AZITHROMYCIN 250 MG ORAL TABLET 2 po qd x 1 day, then 1 po qd x 4 days 07/12 AZITHROMYCIN 250 MG ORAL TABLET 925652 AZITHROMYCIN Inactive PREDNISONE 20 MG ORAL TABLET 2 tabs daily for 3 days, 1 tab daily for 3 days, 1/2 tab daily for 2 days PREDNISONE 20 MG ORAL TABLET 436325 PREDNISONE Inactive DOXYCYCLINE HYCLATE 100 MG ORAL CAPSULE 1 cap by mouth BID x10 days DOXYCYCLINE HYCLATE 100 MG ORAL CAPSULE 1539848 DOXYCYCLINE HYCLATE Inactive ZITHROMAX 250 MG ORAL TABLET Take two (2 ) tablets day one, then one (1) tablet a day for four (4) more days ZITHROMAX 250 MG ORAL TABLET 519352 AZITHROMYCIN Inactive Advance Directives Directive Description Start [...] Ag - Chemistry sodium, serum 141 mmol/L 853-701 9273/12/17 carbon dioxide, venous blood 30.9 mmol/L 21.0-32.0 [...] 50-136 Encounters Code Encounter Date Provider Facility CPT-35030 [id number] Vst-Est Level IV 08:51:04 STORE PROTECTION SPECIALIST Piotr Daley [facility] CPT-64666 28068-His Vst-Est Level III 14:29:05 CDT Piotr Wilson [facility] CPT-15394 Level 3 Est. Patient 15:59:25 STORE PROTECTION SPECIALIST Piotr Daley [facility] CPT-36336 Level 3 Est. Patient 12:33:59 STORE PROTECTION SPECIALIST Piotr Daley [facility] CPT-75747 Level 3 Est. Patient 15:56:17 STORE PROTECTION SPECIALIST Piotr Daley [facility] CPT-30660 Level 3 Est. Patient 10:34:54 STORE PROTECTION SPECIALIST Piotr Wilson [facility] CPT-94039 Level 3 Est. Patient 17:10:19 CDT Nella Harris APRN [facility] CPT-37185 Level 3 Est. Patient 10:48:17 STORE PROTECTION SPECIALIST Matthew Rangel MD [facility] CPT-62140 Level 4 Est. Patient 17:15:07 STORE PROTECTION SPECIALIST Piotr Wilson [facility] CPT-25145 Level 3 Est. Patient 12:46:13 STORE PROTECTION SPECIALIST Piotr Daley [facility] CPT-19688 Level 3 Est. Patient 15:14:31 STORE PROTECTION SPECIALIST Piotr Daley [facility] CPT-82290 Level 3 Est. Patient 09:20:13 STORE PROTECTION SPECIALIST Piotr Wilson [facility] CPT-28333 Level 3 Est. Patient 09:49:40 CDT Piotr Wilson [facility] CPT-85992 Level 3 Est. Patient 16:28:11 CDT Piotr Wilson [facility] CPT-63553 Level 3 Est. Patient 12:41:58 STORE PROTECTION SPECIALIST Piotr Daley [facility] CPT-87021 Level 3 Est. Patient 09:21:24 CDT Piotr Wilson [facility] CPT-30824 Level 3 Est. Patient 09:21:11 CDT Piotr Wilson [facility] CPT-59234 Level 3 Est. Patient 11:16:29 STORE PROTECTION SPECIALIST Piotr Daley [facility] CPT-54832 Level 3 Est. Patient 18:40:19 STORE PROTECTION SPECIALIST Piotr Daley [facility] CPT-03240 Level 3 Est. Patient 19:30:50 CDT Piotr Daley [facility] CPT-36859 Level 3 Est. Patient 22:06:44 CDT Katrina Rinaldi MD PhD [facility] CPT-34386 Level 3 Est. Patient 14:20:00 CDT Piotr Daley [facility] CPT-84352 Level 3 Est. Patient 14:15:22 STORE PROTECTION SPECIALIST Piotr Daley [facility] CPT-63487 Level 3 Est. Patient 20:19:57 STORE PROTECTION SPECIALIST Piotr Daley [facility] CPT-23991 Level 3 Est. Patient 16:44:32 CDT Piotr Daley [facility] CPT-38748 Level 3 Est. Patient 08:48:46 STORE PROTECTION SPECIALIST Piotr Daley [facility] CPT-65901 Level 3 Est. Patient 21:01:21 CDT Piotr Daley [facility] Procedures Code Procedure Name Date Entry Date Standard Description CPT-Cryo Cryotherapy 08:51:04 [facility] CPT-G0439 Subsequent Annual Wellness Exam 08:51:04 [facility] CPT-93705 Sacroiliac jt < 3V - XRAY USE ONLY 16:45:19 STORE PROTECTION SPECIALIST 05/09 CPT-36591 LS spine comp w obliques - XRAY USE ONLY 14:52:26 [facility] CPT-22377 Chest, 2 views 12:55:58 [facility] CPT-G0439 Subsequent Annual Wellness Exam 10:34:52 [facility] CPT-69255 BMP - LAB USE ONLY 17:19:11 STORE PROTECTION SPECIALIST CPT-12940 PT/INR - LAB USE ONLY 17:19:10 [facility] CPT-99696 Venipuncture Draw Fee 17:19:10 STORE PROTECTION SPECIALIST CPT-65161 PT/INR - LAB USE ONLY 08:12:25 STORE PROTECTION SPECIALIST CPT-99246 Venipuncture Draw Fee 08:12:24 STORE PROTECTION SPECIALIST CPT-37051 Venipuncture Draw Fee 11:31:07 STORE PROTECTION SPECIALIST CPT-07158 TPSA - LAB USE ONLY 11:31:07 STORE PROTECTION SPECIALIST CPT-83706 PT/INR - LAB USE ONLY 11:31:07 STORE PROTECTION SPECIALIST CPT-G0439 Subsequent Annual Wellness Exam 09:59:29 STORE PROTECTION SPECIALIST CPT-42471 Creatinine - LAB USE ONLY 14:37:55 STORE PROTECTION SPECIALIST CPT-94353 PT/INR - LAB USE ONLY 14:37:55 STORE PROTECTION SPECIALIST CPT-50005 Venipuncture Draw Fee 14:37:55 STORE PROTECTION SPECIALIST CPT-24988 LS spine comp w obliques - XRAY USE ONLY 12:59:25 STORE PROTECTION SPECIALIST CPT-34337 PT/INR - LAB USE ONLY 13:49:20 CDT CPT-48762 Venipuncture Draw Fee 13:49:19 CDT CPT-32196 PT/INR - LAB USE ONLY 15:48:49 CDT CPT-83786 Venipuncture Draw Fee 15:48:49 CDT CPT-20910 Venipuncture Draw Fee 11:31:59 CDT CPT-44064 PT/INR - LAB USE ONLY 11:31:59 CDT CPT-69055 Venipuncture Draw Fee 13:29:15 CDT CPT-94609 Thoracolumbar AP/Lat 15:19:19 STORE PROTECTION SPECIALIST CPT-G0438 Initial Annual Wellness Exam 12:18:54 STORE PROTECTION SPECIALIST CPT-17473 Knee 3V 09:57:38 CDT CPT-OV Office Visit 15:45:01 STORE PROTECTION SPECIALIST CPT-14990 Abd compl w upright 17:10:25 CDT
--- OUTSIDE RECORDS SUMMARY | 2018-07-18 07:30 | XMS REPORT | Clinical Summary ---
Author Author Admin, Isidra Organization [employer] Address Unknown Phone Unavailable Allergies, Adverse Reactions, [...] Coronary atherosclerosis of unspecified type of vessel, viejas or graft Back pain, thoracic region, left [...] THROMBOPHLEBITIS, LEG, 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 Inactive Sirisha Chen [employer] [employer] Seborrheic keratosis ICD-702.19 Inactive Sirisha Chen [employer] [employer] Bronchitis-Acute ICD-466.0 Inactive Piotr Daley DO Leg pain, right ICD-729.5 Inactive Sirisha Chen [employer] [employer] Right leg pain ICD-729.5 Inactive Sirisha Chen [employer] [employer] Bronchitis-Acute ICD-466.0 Inactive Sirisha Chen [employer] [employer] Knee pain, left ICD-719.46 Inactive Sirisha Chen [employer] [employer] [employer] Actinic keratoses ICD-702.0 Inactive Sirisha Chen [employer] [employer] [employer] Back pain, thoracic region, left ICD-724.1 Inactive Piotr Daley DO Thoracic back pain ICD-724.5 Inactive Sirisha Chen [employer] [employer] Back pain lumbar ICD-724.2 Inactive Sirisha Chen [employer] [employer] [employer] Insect bite ICD-919.4 Inactive Sirisha Chen [employer] [address] [employer] Pruritus ICD-698.9 Inactive Sirisha Chen [employer] [employer] 04/09 Bronchitis-Acute ICD-466.0 Inactive Sirisha Chen [employer] [employer] [employer] Dyspnea ICD-786.09 Inactive Sirisha Chen [employer] [employer] 05/09 Pes anserinus bursitis, right ICD-726.61 Inactive Piotr Daley DO Medication List Medication Instructions Start Date Stop Date Generic Name NDC Status Provider Patient Instruction TRIAMCINOLONE ACETONIDE 0.1 % EXTERNAL CREAM apply bid sparingly to rash 2017 TRIAMCINOLONE ACETONIDE 30681322767 No Longer Active Piotr Daley DO Active NYSTATIN 271865 UNIT/GM EXTERNAL CREAM Apply to rash 2-3 times a day and may repeat as needed NYSTATIN 07822757795 No Longer Active Piotr Daley DO Active WARFARIN SODIUM 4 MG ORAL TABLET 1 tablet by mouth daily WARFARIN SODIUM 34978689105 Active Sirisha Chen LPN Active MELOXICAM 15 MG ORAL TABLET 1 po q day for pain with food MELOXICAM 14158384073 Active Piotr Daley DO Active PREDNISONE 10 MG ORAL TABLET 1 tablet by mouth daily PREDNISONE 07689083798 No Longer Active Emelyn Norris Active TESSALON PERLES 100 MG ORAL CAPSULE 1-2 tablet by mouth 3 times daily 04/16 BENZONATATE 00877238812 No Longer Active Emelyn Norris Active PREDNISONE 20 MG ORAL TABLET two tabs by mouth today, then one tab by mouth days two and three PREDNISONE 92005741612 No Longer Active Piotr Daley DO Active CYCLOBENZAPRINE HCL 10 MG ORAL TABLET 1 tablet by mouth three times daily as needed for muscle spasm/pain CYCLOBENZAPRINE HCL 49852662931 Active Sirisha Chen LPN Active ZITHROMAX 250 MG ORAL TABLET Take two (2 ) tablets day one, then one (1) tablet a day for four (4) more days AZITHROMYCIN 87418592250 No Longer Active Piotr Daley DO Active PROAIR HFA 108 (90 BASE) MCG/ACT INHALATION AEROSOL SOLUTION 1-2 puffs four times a day as needed ALBUTEROL SULFATE 33069212481 No Longer Active Emelyn Norris Active DOXYCYCLINE HYCLATE 100 MG ORAL CAPSULE 1 cap by mouth BID x10 days DOXYCYCLINE HYCLATE 51049641636 No Longer Active Nella Harris APRN Active PREDNISONE 20 MG ORAL TABLET 2 tabs daily for 3 days, 1 tab daily for 3 days, 1/2 tab daily for 2 days PREDNISONE 41202207982 No Longer Active Matthew Rangel MD Active TRAMADOL HCL 50 MG ORAL TABLET 1 po tid with ES Tylenol TRAMADOL HCL 65245142489 No Longer Active Matthew Rangel MD Active GABAPENTIN 300 MG ORAL CAPSULE 1 po q hs for nerve pain GABAPENTIN 24397563987 No Longer Active Matthew Rangel MD Active PREDNISONE 20 MG ORAL TABLET 2 tablets today, then 1 tablet days 2 through 4 PREDNISONE 71236249682 No Longer Active Piotr Daley DO Active AZITHROMYCIN 250 MG ORAL TABLET 2 po qd x 1 day, then 1 po qd x 4 days 07/12 AZITHROMYCIN 82006202171 No Longer Active Piotr Daley DO Active IBUPROFEN 800 MG ORAL TABLET 1 tab every 8 hours as needed 07/12 IBUPROFEN 58089240372 No Longer Active Piotr Daley DO Active LOMOTIL 2.5-0.025 MG ORAL TABLET 1 to 2 four times a day as needed for diarrhea DIPHENOXYLATE-ATROPINE 14173951659 No Longer Active Piotr Daley DO Active WARFARIN SODIUM 4 MG ORAL TABLET 1 tab every evening WARFARIN SODIUM 41058544117 No Longer Active Piotr Daley DO Active PREDNISONE 20 MG ORAL TABLET 1 tablet twice daily for 2 days, then 1 tablet once daily for 2 days PREDNISONE 31273067559 No Longer Active Piotr Daley DO Active PROMETHAZINE HCL 25 MG ORAL TABLET 1 four times a day as needed for nausea/ vomiting PROMETHAZINE HCL 92664633170 No Longer Active Piotr Daley DO Active TUSSIONEX PENNKINETIC ER 10-8 MG/5ML ORAL SUSPENSION EXTENDED RELEASE 5ml po q12hr PRN Cough HYDROCOD POLST-CHLORPHEN POLST 25989629250 No Longer Active Piotr Daley DO Active AZITHROMYCIN 250 MG ORAL TABLET 2 po qd x 1 day, then 1 po qd x 4 days 10/13 AZITHROMYCIN 83205726846 No Longer Active Piotr Daley DO Active AZITHROMYCIN 250 MG ORAL TABLET 2 po qd x 1 day, then 1 po qd x 4 days 05/07 AZITHROMYCIN 15217139726 No Longer Active Piotr Daley DO Active LISINOPRIL-HYDROCHLOROTHIAZIDE 10-12.5 MG ORAL TABLET 1 tab by mouth daily LISINOPRIL-HYDROCHLOROTHIAZIDE 70476777110 Active Piotr Daley DO Active LISINOPRIL 10 MG ORAL TABLET 1/2-1 tab po every other day LISINOPRIL 71419810511 No Longer Active Piotr Daley DO Active VENTOLIN HFA 108 (90 Base) MCG/ACT INHALATION AEROSOL SOLUTION 2 puffs four times a day PRN cough ALBUTEROL SULFATE 83233054229 No Longer Active Piotr Daley DO Active NYSTATIN-TRIAMCINOLONE 867160-3.1 UNIT/GM-% EXTERNAL CREAM Apply to area BID NYSTATIN-TRIAMCINOLONE 35669850001 No Longer Active Alena Chavira [employer] Active PHISOHEX 3 % LIQD Use Directed HEXACHLOROPHENE 34702620748 No Longer Active Sandra Laurel Active AZITHROMYCIN 250 MG ORAL TABLET 2 po qd x 1 day, then 1 po qd x 4 days 10/21 AZITHROMYCIN 61394243537 No Longer Active Katrina Rinaldi MD PhD Active AZITHROMYCIN 250 MG ORAL TABLET 2 po qd x 1 day, then 1 po qd x 4 days 10/16 AZITHROMYCIN 58688271619 No Longer Active Piotr Daley DO Active AZITHROMYCIN 500 MG INTRAVENOUS SOLUTION RECONSTITUTED 1 po q day AZITHROMYCIN 34380853151 No Longer Active Piotr Daley DO Active NYSTATIN-TRIAMCINOLONE 033968-0.1 UNIT/GM-% EXTERNAL CREAM apply bid NYSTATIN-TRIAMCINOLONE 07343634318 No Longer Active Piotr Daley DO Active IBUPROFEN 800 MG ORAL TABLET 1 po q 8 hours prn pain sparinly IBUPROFEN 14309298015 No Longer Active Piotr Daley DO Active VITAMIN D3 5000 UNIT ORAL CAPSULE 1 po daily CHOLECALCIFEROL 68353151388 Active Piotr Daley DO Active IBUPROFEN 800 MG ORAL TABLET 1 po q 8 hours prn pain sparinly IBUPROFEN 800 MG ORAL TABLET 972167 IBUPROFEN Inactive NYSTATIN-TRIAMCINOLONE 590010-1.1 UNIT/GM-% EXTERNAL CREAM apply bid NYSTATIN-TRIAMCINOLONE 768416-0.1 UNIT/GM-% EXTERNAL CREAM 2316457 NYSTATIN-TRIAMCINOLONE Inactive AZITHROMYCIN 500 MG INTRAVENOUS SOLUTION RECONSTITUTED 1 po q day AZITHROMYCIN 500 MG INTRAVENOUS SOLUTION RECONSTITUTED 03884349310 AZITHROMYCIN Inactive VENTOLIN HFA 108 (90 Base) MCG/ACT INHALATION AEROSOL SOLUTION 2 puffs four times a day PRN cough VENTOLIN HFA 108 (90 Base) MCG/ ACT INHALATION AEROSOL SOLUTION ALBUTEROL SULFATE Inactive LISINOPRIL 10 MG ORAL TABLET 1/2-1 tab po every other day LISINOPRIL 10 MG ORAL TABLET 351840 LISINOPRIL Inactive TUSSIONEX PENNKINETIC ER 10-8 MG/5ML ORAL SUSPENSION EXTENDED RELEASE 5ml po q12hr PRN Cough TUSSIONEX PENNKINETIC ER 10-8 MG/5ML ORAL SUSPENSION EXTENDED RELEASE HYDROCOD POLST-CHLORPHEN POLST Inactive PROMETHAZINE HCL 25 MG ORAL TABLET 1 four times a day as needed for nausea/ vomiting PROMETHAZINE HCL 25 MG ORAL TABLET 117566 PROMETHAZINE HCL Inactive PREDNISONE 20 MG ORAL TABLET 1 tablet twice daily for 2 days, then 1 tablet once daily for 2 days PREDNISONE 20 MG ORAL TABLET 068568 PREDNISONE Inactive WARFARIN SODIUM 4 MG ORAL TABLET 1 tab every evening WARFARIN SODIUM 4 MG ORAL TABLET 702369 WARFARIN SODIUM Inactive LOMOTIL 2.5-0.025 MG ORAL TABLET 1 to 2 four times a day as needed for diarrhea LOMOTIL 2.5-0.025 MG ORAL TABLET 3519448 DIPHENOXYLATE-ATROPINE Inactive IBUPROFEN 800 MG ORAL TABLET 1 tab every 8 hours as needed 07/12 IBUPROFEN 800 MG ORAL TABLET 629891 IBUPROFEN Inactive PREDNISONE 20 MG ORAL TABLET 2 tablets today, then 1 tablet days 2 through 4 PREDNISONE 20 MG ORAL TABLET 755848 PREDNISONE Inactive GABAPENTIN 300 MG ORAL CAPSULE 1 po q hs for nerve pain GABAPENTIN 300 MG ORAL CAPSULE 013312 GABAPENTIN Inactive TRAMADOL HCL 50 MG ORAL TABLET 1 po tid with ES Tylenol TRAMADOL HCL 50 MG ORAL TABLET 335909 TRAMADOL HCL Inactive PROAIR HFA 108 (90 BASE) MCG/ACT INHALATION AEROSOL SOLUTION 1-2 puffs four times a day as needed PROAIR HFA 108 (90 BASE) MCG/ACT INHALATION AEROSOL SOLUTION ALBUTEROL SULFATE Inactive PREDNISONE 20 MG ORAL TABLET two tabs by mouth today, then one tab by mouth days two and three PREDNISONE 20 MG ORAL TABLET 640432 PREDNISONE Inactive TESSALON PERLES 100 MG ORAL CAPSULE 1-2 tablet by mouth 3 times daily 04/16 TESSALON PERLES 100 MG ORAL CAPSULE 950143 BENZONATATE Inactive PREDNISONE 10 MG ORAL TABLET 1 tablet by mouth daily PREDNISONE 10 MG ORAL TABLET 373170 PREDNISONE Inactive NYSTATIN 421215 UNIT/GM EXTERNAL CREAM Apply to rash 2-3 times a day and may repeat as needed NYSTATIN 337661 UNIT/GM EXTERNAL CREAM 391462 NYSTATIN Inactive TRIAMCINOLONE ACETONIDE 0.1 % EXTERNAL CREAM apply bid sparingly to rash 2017 TRIAMCINOLONE ACETONIDE 0.1 % EXTERNAL CREAM 1145636 TRIAMCINOLONE ACETONIDE Inactive AZITHROMYCIN 250 MG ORAL TABLET 2 po qd x 1 day, then 1 po qd x 4 days 10/16 AZITHROMYCIN 250 MG ORAL TABLET 188074 AZITHROMYCIN Inactive AZITHROMYCIN 250 MG ORAL TABLET 2 po qd x 1 day, then 1 po qd x 4 days 10/21 AZITHROMYCIN 250 MG ORAL TABLET 743640 AZITHROMYCIN Inactive NYSTATIN-TRIAMCINOLONE 269893-7.1 UNIT/GM-% EXTERNAL CREAM Apply to area BID NYSTATIN-TRIAMCINOLONE 908623-3.1 UNIT/GM-% EXTERNAL CREAM 7368013 NYSTATIN-TRIAMCINOLONE Inactive AZITHROMYCIN 250 MG ORAL TABLET 2 po qd x 1 day, then 1 po qd x 4 days 05/07 AZITHROMYCIN 250 MG ORAL TABLET 309075 AZITHROMYCIN Inactive AZITHROMYCIN 250 MG ORAL TABLET 2 po qd x 1 day, then 1 po qd x 4 days 10/13 AZITHROMYCIN 250 MG ORAL TABLET 591584 AZITHROMYCIN Inactive AZITHROMYCIN 250 MG ORAL TABLET 2 po qd x 1 day, then 1 po qd x 4 days 07/12 AZITHROMYCIN 250 MG ORAL TABLET 770466 AZITHROMYCIN Inactive PREDNISONE 20 MG ORAL TABLET 2 tabs daily for 3 days, 1 tab daily for 3 days, 1/2 tab daily for 2 days PREDNISONE 20 MG ORAL TABLET 263927 PREDNISONE Inactive DOXYCYCLINE HYCLATE 100 MG ORAL CAPSULE 1 cap by mouth BID x10 days DOXYCYCLINE HYCLATE 100 MG ORAL CAPSULE 1126916 DOXYCYCLINE HYCLATE Inactive ZITHROMAX 250 MG ORAL TABLET Take two (2 ) tablets day one, then one (1) tablet a day for four (4) more days ZITHROMAX 250 MG ORAL TABLET 804546 AZITHROMYCIN Inactive Advance Directives Directive Description Start [...] temperature weight E&M 220 [lb_av] Weight Measured blood pressure, diastolic 67 mm[Hg] BP phan blood pressure, systolic 124 mm[Hg] BP sys height E&M 71 [in_us] Bdy height pulse rate E&M 64 /min Heart rate temperature E&M 96.2 [degF] Body temperature weight E&M 224.31 [lb_av] Weight Measured Diagnostic Results Date Name Value Unit Range Description Lab Report: Comp. Metabolic Panel, CBC, Prostatic Specific Ag - Chemistry sodium, serum 141 mmol/L 069-344 1300/12/17 carbon dioxide, venous blood 30.9 mmol/L 21.0-32.0 [...] 50-136 Encounters Code Encounter Date Provider Facility CPT-43534 [id number] Vst-Est Level IV 08:51:04 ACADEMIC TUTOR Piotr Daley DO [facility] CPT-08970 84001-Hmb Vst-Est Level III 14:29:05 CDT Piotr W Edi [facility] CPT-22104 Level 3 Est. Patient 15:59:25 ACADEMIC TUTOR Piotr Daley [facility] CPT-17297 Level 3 Est. Patient 12:33:59 ACADEMIC TUTOR Piotr Daley [facility] CPT-10992 Level 3 Est. Patient 15:56:17 ACADEMIC TUTOR Piotr Daley [facility] CPT-80136 Level 3 Est. Patient 10:34:54 ACADEMIC TUTOR Piotr Daley [facility] CPT-70656 Level 3 Est. Patient 17:10:19 CDT Nella Harris APRN [facility] CPT-48181 Level 3 Est. Patient 10:48:17 ACADEMIC TUTOR Matthew Rangel MD [facility] CPT-60656 Level 4 Est. Patient 17:15:07 ACADEMIC TUTOR Piotr Daley [facility] CPT-30541 Level 3 Est. Patient 12:46:13 ACADEMIC TUTOR Piotr Daley [facility] CPT-89833 Level 3 Est. Patient 15:14:31 ACADEMIC TUTOR Piotr Daley [facility] CPT-33782 Level 3 Est. Patient 09:20:13 ACADEMIC TUTOR Piotr Daley [facility] CPT-24792 Level 3 Est. Patient 09:49:40 CDT Piotr Daley [facility] CPT-95488 Level 3 Est. Patient 16:28:11 CDT Piotr Daley [facility] CPT-19909 Level 3 Est. Patient 12:41:58 ACADEMIC TUTOR Piotr Daley [facility] CPT-49921 Level 3 Est. Patient 09:21:24 CDT Piotr Katie [facility] CPT-76367 Level 3 Est. Patient 09:21:11 CDT Piotr Katie [facility] CPT-42096 Level 3 Est. Patient 11:16:29 ACADEMIC TUTOR Piotr Wilson Edi [facility] CPT-97090 Level 3 Est. Patient 18:40:19 ACADEMIC TUTOR Piotr Daley [facility] CPT-25960 Level 3 Est. Patient 19:30:50 CDT Piotr Daley [facility] CPT-01903 Level 3 Est. Patient 22:06:44 CDT Katrina Rinaldi MD [facility] CPT-84134 Level 3 Est. Patient 14:20:00 CDT Piotr Daley [facility] CPT-05806 Level 3 Est. Patient 14:15:22 ACADEMIC TUTOR Piotr Daley [facility] CPT-20099 Level 3 Est. Patient 20:19:57 ACADEMIC TUTOR Piotr Daley [facility] CPT-10847 Level 3 Est. Patient 16:44:32 CDT Piotr Daley [facility] CPT-79970 Level 3 Est. Patient 08:48:46 ACADEMIC TUTOR Piotr Daley [facility] CPT-67997 Level 3 Est. Patient 21:01:21 CDT Piotr Wilson [facility] Procedures Code Procedure Name Date Entry Date Standard Description CPT-Cryo Cryotherapy 08:51:04 ACADEMIC TUTOR CPT-G0439 Subsequent Annual Wellness Exam 08:51:04 ACADEMIC TUTOR CPT-63133 Sacroiliac jt < 3V - XRAY USE ONLY 16:45:19 ACADEMIC TUTOR 05/09 CPT-30411 LS spine comp w obliques - XRAY USE ONLY 14:52:26 ACADEMIC TUTOR CPT-40770 Chest, 2 views 12:55:58 ACADEMIC TUTOR CPT-G0439 Subsequent Annual Wellness Exam 10:34:52 ACADEMIC TUTOR CPT-04226 BMP - LAB USE ONLY 17:19:11 ACADEMIC TUTOR CPT-87020 PT/INR - LAB USE ONLY 17:19:10 ACADEMIC TUTOR CPT-65734 Venipuncture Draw Fee 17:19:10 ACADEMIC TUTOR CPT-97050 PT/INR - LAB USE ONLY 08:12:25 ACADEMIC TUTOR CPT-58666 Venipuncture Draw Fee 08:12:24 ACADEMIC TUTOR CPT-52272 Venipuncture Draw Fee 11:31:07 ACADEMIC TUTOR CPT-41112 TPSA - LAB USE ONLY 11:31:07 ACADEMIC TUTOR CPT-38556 PT/INR - LAB USE ONLY 11:31:07 ACADEMIC TUTOR CPT-G0439 [facility] Annual Wellness Exam 09:59:29 ACADEMIC TUTOR CPT-91713 Creatinine - LAB USE ONLY 14:37:55 ACADEMIC TUTOR CPT-65937 PT/INR - LAB USE ONLY 14:37:55 ACADEMIC TUTOR CPT-01351 Venipuncture Draw Fee 14:37:55 ACADEMIC TUTOR CPT-41189 LS spine comp w obliques - XRAY USE ONLY 12:59:25 ACADEMIC TUTOR CPT-94020 PT/INR - LAB USE ONLY 13:49:20 CDT CPT-17395 Venipuncture Draw Fee 13:49:19 CDT CPT-75643 PT/INR - LAB USE ONLY 15:48:49 CDT CPT-13737 Venipuncture Draw Fee 15:48:49 CDT CPT-84802 Venipuncture Draw Fee 11:31:59 CDT CPT-45941 PT/INR - LAB USE ONLY 11:31:59 CDT CPT-69296 Venipuncture Draw Fee 13:29:15 CDT CPT-33664 Thoracolumbar AP/Lat 15:19:19 ACADEMIC TUTOR CPT-G0438 Initial Annual Wellness Exam 12:18:54 ACADEMIC TUTOR CPT-84065 Knee 3V 09:57:38 CDT CPT-OV Office Visit 15:45:01 ACADEMIC TUTOR CPT-26090 Abd compl w upright 17:10:25 CDT
--- OUTSIDE RECORDS SUMMARY | 2018-07-18 07:31 | XMS REPORT | Clinical Summary ---
Author Author Admin, [facility] Address Unknown Phone Unavailable Allergies, Adverse Reactions, [...] Coronary atherosclerosis of unspecified type of vessel, [place] or graft Back pain, thoracic region, left [...] THROMBOPHLEBITIS, LEG, 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 Inactive Sirisha Chen [employer] UP OPERATOR Seborrheic keratosis ICD-702.19 Inactive Sirisha Chen [employer] UP OPERATOR Bronchitis-Acute ICD-466.0 Inactive Piotr Daley DO Leg pain, right ICD-729.5 Inactive Sirisha Chen [employer] UP OPERATOR Right leg pain ICD-729.5 Inactive Sirisha Chen [employer] UP OPERATOR Bronchitis-Acute ICD-466.0 Inactive Sirisha Chen [employer] UP OPERATOR Knee pain, left ICD-719.46 Inactive Sirisha Chen [employer] UP OPERATOR Actinic keratoses ICD-702.0 Inactive Sirisha Chen [employer] UP OPERATOR Back pain, thoracic region, left ICD-724.1 Inactive Piotr Daley DO Thoracic back pain ICD-724.5 Inactive Sirisha Chen [employer] UP OPERATOR Back pain lumbar ICD-724.2 Inactive Sirisha Chen [employer] UP OPERATOR Insect bite ICD-919.4 Inactive Sirisha Chen [employer] UP OPERATOR Pruritus ICD-698.9 Inactive Sirisha Chen [employer] SET UP OPERATOR 04/09 Bronchitis-Acute ICD-466.0 Inactive Sirisha Chen [employer] UP OPERATOR Dyspnea ICD-786.09 Inactive Sirisha Chen [employer] UP OPERATOR 05/09 Pes anserinus bursitis, right ICD-726.61 Inactive Piotr Daley DO Medication List Medication Instructions Start Date Stop Date Generic Name NDC Status Provider Patient Instruction TRIAMCINOLONE ACETONIDE 0.1 % EXTERNAL CREAM apply bid sparingly to rash 2017 TRIAMCINOLONE ACETONIDE 20807151583 No Longer Active Piotr Daley DO Active NYSTATIN 312094 UNIT/GM EXTERNAL CREAM Apply to rash 2-3 times a day and may repeat as needed NYSTATIN 47907938312 No Longer Active Piotr Daley DO Active WARFARIN SODIUM 4 MG ORAL TABLET 1 tablet by mouth daily WARFARIN SODIUM 48636750092 Active Sirisha Chen LPN Active MELOXICAM 15 MG ORAL TABLET 1 po q day for pain with food MELOXICAM 25901401279 Active Piotr Daley DO Active PREDNISONE 10 MG ORAL TABLET 1 tablet by mouth daily PREDNISONE 52893623271 No Longer Active Emelyn Norris Active TESSALON PERLES 100 MG ORAL CAPSULE 1-2 tablet by mouth 3 times daily 04/16 BENZONATATE 41550823221 No Longer Active Emelyn Norris Active PREDNISONE 20 MG ORAL TABLET two tabs by mouth today, then one tab by mouth days two and three PREDNISONE 41333149876 No Longer Active Piotr Daley DO Active CYCLOBENZAPRINE HCL 10 MG ORAL TABLET 1 tablet by mouth three times daily as needed for muscle spasm/pain CYCLOBENZAPRINE HCL 15482314551 Active Sirisha Chen LPN Active ZITHROMAX 250 MG ORAL TABLET Take two (2 ) tablets day one, then one (1) tablet a day for four (4) more days AZITHROMYCIN 30431931857 No Longer Active Piotr Daley DO Active PROAIR HFA 108 (90 BASE) MCG/ACT INHALATION AEROSOL SOLUTION 1-2 puffs four times a day as needed ALBUTEROL SULFATE 41947208943 No Longer Active Emelyn Norris Active DOXYCYCLINE HYCLATE 100 MG ORAL CAPSULE 1 cap by mouth BID x10 days DOXYCYCLINE HYCLATE 02136539740 No Longer Active Nella Harris APRN Active PREDNISONE 20 MG ORAL TABLET 2 tabs daily for 3 days, 1 tab daily for 3 days, 1/2 tab daily for 2 days PREDNISONE 20653051415 No Longer Active Matthew Rangel MD Active TRAMADOL HCL 50 MG ORAL TABLET 1 po tid with ES Tylenol TRAMADOL HCL 51668135319 No Longer Active Matthew Rangel MD Active GABAPENTIN 300 MG ORAL CAPSULE 1 po q hs for nerve pain GABAPENTIN 26958286157 No Longer Active Matthew Rangel MD Active PREDNISONE 20 MG ORAL TABLET 2 tablets today, then 1 tablet days 2 through 4 PREDNISONE 30919805299 No Longer Active Piotr Daley DO Active AZITHROMYCIN 250 MG ORAL TABLET 2 po qd x 1 day, then 1 po qd x 4 days 07/12 AZITHROMYCIN 29241025777 No Longer Active Piotr Daley DO Active IBUPROFEN 800 MG ORAL TABLET 1 tab every 8 hours as needed 07/12 IBUPROFEN 92997694152 No Longer Active Piotr Daley DO Active LOMOTIL 2.5-0.025 MG ORAL TABLET 1 to 2 four times a day as needed for diarrhea DIPHENOXYLATE-ATROPINE 47172974996 No Longer Active Piotr Daley DO Active WARFARIN SODIUM 4 MG ORAL TABLET 1 tab every evening WARFARIN SODIUM 58049049169 No Longer Active Piotr Daley DO Active PREDNISONE 20 MG ORAL TABLET 1 tablet twice daily for 2 days, then 1 tablet once daily for 2 days PREDNISONE 46289296141 No Longer Active Piotr Daley DO Active PROMETHAZINE HCL 25 MG ORAL TABLET 1 four times a day as needed for nausea/ vomiting PROMETHAZINE HCL 51242671458 No Longer Active Piotr Daley DO Active TUSSIONEX PENNKINETIC ER 10-8 MG/5ML ORAL SUSPENSION EXTENDED RELEASE 5ml po q12hr PRN Cough HYDROCOD POLST-CHLORPHEN POLST 16618104911 No Longer Active Piotr Daley DO Active AZITHROMYCIN 250 MG ORAL TABLET 2 po qd x 1 day, then 1 po qd x 4 days 10/13 AZITHROMYCIN 54818976541 No Longer Active Piotr Daley DO Active AZITHROMYCIN 250 MG ORAL TABLET 2 po qd x 1 day, then 1 po qd x 4 days 05/07 AZITHROMYCIN 44279985768 No Longer Active Piotr Daley DO Active LISINOPRIL-HYDROCHLOROTHIAZIDE 10-12.5 MG ORAL TABLET 1 tab by mouth daily LISINOPRIL-HYDROCHLOROTHIAZIDE 64590870534 Active Piotr Daley DO Active LISINOPRIL 10 MG ORAL TABLET 1/2-1 tab po every other day LISINOPRIL 90535213463 No Longer Active Piotr Daley DO Active VENTOLIN HFA 108 (90 Base) MCG/ACT INHALATION AEROSOL SOLUTION 2 puffs four times a day PRN cough ALBUTEROL SULFATE 45335560045 No Longer Active Piotr Daley DO Active NYSTATIN-TRIAMCINOLONE 590155-1.1 UNIT/GM-% EXTERNAL CREAM Apply to area BID NYSTATIN-TRIAMCINOLONE 93297018490 No Longer Active Alena Chavira [employer] UP OPERATOR Active PHISOHEX 3 % LIQD Use Directed HEXACHLOROPHENE 19306988798 No Longer Active Sandra [place] Active AZITHROMYCIN 250 MG ORAL TABLET 2 po qd x 1 day, then 1 po qd x 4 days 10/21 AZITHROMYCIN 90196858778 No Longer Active Katrina Rinaldi MD PhD Active AZITHROMYCIN 250 MG ORAL TABLET 2 po qd x 1 day, then 1 po qd x 4 days 10/16 AZITHROMYCIN 46207810555 No Longer Active Piotr Daley DO Active AZITHROMYCIN 500 MG INTRAVENOUS SOLUTION RECONSTITUTED 1 po q day AZITHROMYCIN 69416952835 No Longer Active Piotr Daley DO Active NYSTATIN-TRIAMCINOLONE 360979-7.1 UNIT/GM-% EXTERNAL CREAM apply bid NYSTATIN-TRIAMCINOLONE 73419639141 No Longer Active Piotr Daley DO Active IBUPROFEN 800 MG ORAL TABLET 1 po q 8 hours prn pain sparinly IBUPROFEN 72135181163 No Longer Active Piotr Daley DO Active VITAMIN D3 5000 UNIT ORAL CAPSULE 1 po daily CHOLECALCIFEROL 47297359439 Active Piotr Daley DO Active IBUPROFEN 800 MG ORAL TABLET 1 po q 8 hours prn pain sparinly IBUPROFEN 800 MG ORAL TABLET 735185 IBUPROFEN Inactive NYSTATIN-TRIAMCINOLONE 882769-4.1 UNIT/GM-% EXTERNAL CREAM apply bid NYSTATIN-TRIAMCINOLONE 132352-4.1 UNIT/GM-% EXTERNAL CREAM 9914383 NYSTATIN-TRIAMCINOLONE Inactive AZITHROMYCIN 500 MG INTRAVENOUS SOLUTION RECONSTITUTED 1 po q day AZITHROMYCIN 500 MG INTRAVENOUS SOLUTION RECONSTITUTED 81740560794 AZITHROMYCIN Inactive VENTOLIN HFA 108 (90 Base) MCG/ACT INHALATION AEROSOL SOLUTION 2 puffs four times a day PRN cough VENTOLIN HFA 108 (90 Base) MCG/ ACT INHALATION AEROSOL SOLUTION ALBUTEROL SULFATE Inactive LISINOPRIL 10 MG ORAL TABLET 1/2-1 tab po every other day LISINOPRIL 10 MG ORAL TABLET 412824 LISINOPRIL Inactive TUSSIONEX PENNKINETIC ER 10-8 MG/5ML ORAL SUSPENSION EXTENDED RELEASE 5ml po q12hr PRN Cough TUSSIONEX PENNKINETIC ER 10-8 MG/5ML ORAL SUSPENSION EXTENDED RELEASE HYDROCOD POLST-CHLORPHEN POLST Inactive PROMETHAZINE HCL 25 MG ORAL TABLET 1 four times a day as needed for nausea/ vomiting PROMETHAZINE HCL 25 MG ORAL TABLET 774423 PROMETHAZINE HCL Inactive PREDNISONE 20 MG ORAL TABLET 1 tablet twice daily for 2 days, then 1 tablet once daily for 2 days PREDNISONE 20 MG ORAL TABLET 244051 PREDNISONE Inactive WARFARIN SODIUM 4 MG ORAL TABLET 1 tab every evening WARFARIN SODIUM 4 MG ORAL TABLET 524183 WARFARIN SODIUM Inactive LOMOTIL 2.5-0.025 MG ORAL TABLET 1 to 2 four times a day as needed for diarrhea LOMOTIL 2.5-0.025 MG ORAL TABLET 3486965 DIPHENOXYLATE-ATROPINE Inactive IBUPROFEN 800 MG ORAL TABLET 1 tab every 8 hours as needed 07/12 IBUPROFEN 800 MG ORAL TABLET 804254 IBUPROFEN Inactive PREDNISONE 20 MG ORAL TABLET 2 tablets today, then 1 tablet days 2 through 4 PREDNISONE 20 MG ORAL TABLET 927738 PREDNISONE Inactive GABAPENTIN 300 MG ORAL CAPSULE 1 po q hs for nerve pain GABAPENTIN 300 MG ORAL CAPSULE 364606 GABAPENTIN Inactive TRAMADOL HCL 50 MG ORAL TABLET 1 po tid with ES Tylenol TRAMADOL HCL 50 MG ORAL TABLET 727266 TRAMADOL HCL Inactive PROAIR HFA 108 (90 BASE) MCG/ACT INHALATION AEROSOL SOLUTION 1-2 puffs four times a day as needed PROAIR HFA 108 (90 BASE) MCG/ACT INHALATION AEROSOL SOLUTION ALBUTEROL SULFATE Inactive PREDNISONE 20 MG ORAL TABLET two tabs by mouth today, then one tab by mouth days two and three PREDNISONE 20 MG ORAL TABLET 486467 PREDNISONE Inactive TESSALON PERLES 100 MG ORAL CAPSULE 1-2 tablet by mouth 3 times daily 04/16 TESSALON PERLES 100 MG ORAL CAPSULE 906643 BENZONATATE Inactive PREDNISONE 10 MG ORAL TABLET 1 tablet by mouth daily PREDNISONE 10 MG ORAL TABLET 698798 PREDNISONE Inactive NYSTATIN 217048 UNIT/GM EXTERNAL CREAM Apply to rash 2-3 times a day and may repeat as needed NYSTATIN 030973 UNIT/GM EXTERNAL CREAM 354785 NYSTATIN Inactive TRIAMCINOLONE ACETONIDE 0.1 % EXTERNAL CREAM apply bid sparingly to rash 2017 TRIAMCINOLONE ACETONIDE 0.1 % EXTERNAL CREAM 6239262 TRIAMCINOLONE ACETONIDE Inactive AZITHROMYCIN 250 MG ORAL TABLET 2 po qd x 1 day, then 1 po qd x 4 days 10/16 AZITHROMYCIN 250 MG ORAL TABLET 575986 AZITHROMYCIN Inactive AZITHROMYCIN 250 MG ORAL TABLET 2 po qd x 1 day, then 1 po qd x 4 days 10/21 AZITHROMYCIN 250 MG ORAL TABLET 641389 AZITHROMYCIN Inactive NYSTATIN-TRIAMCINOLONE 413634-4.1 UNIT/GM-% EXTERNAL CREAM Apply to area BID NYSTATIN-TRIAMCINOLONE 833457-2.1 UNIT/GM-% EXTERNAL CREAM 4435414 NYSTATIN-TRIAMCINOLONE Inactive AZITHROMYCIN 250 MG ORAL TABLET 2 po qd x 1 day, then 1 po qd x 4 days 05/07 AZITHROMYCIN 250 MG ORAL TABLET 884737 AZITHROMYCIN Inactive AZITHROMYCIN 250 MG ORAL TABLET 2 po qd x 1 day, then 1 po qd x 4 days 10/13 AZITHROMYCIN 250 MG ORAL TABLET 884703 AZITHROMYCIN Inactive AZITHROMYCIN 250 MG ORAL TABLET 2 po qd x 1 day, then 1 po qd x 4 days 07/12 AZITHROMYCIN 250 MG ORAL TABLET 197390 AZITHROMYCIN Inactive PREDNISONE 20 MG ORAL TABLET 2 tabs daily for 3 days, 1 tab daily for 3 days, 1/2 tab daily for 2 days PREDNISONE 20 MG ORAL TABLET 431121 PREDNISONE Inactive DOXYCYCLINE HYCLATE 100 MG ORAL CAPSULE 1 cap by mouth BID x10 days DOXYCYCLINE HYCLATE 100 MG ORAL CAPSULE 5775770 DOXYCYCLINE HYCLATE Inactive ZITHROMAX 250 MG ORAL TABLET Take two (2 ) tablets day one, then one (1) tablet a day for four (4) more days ZITHROMAX 250 MG ORAL TABLET 616169 AZITHROMYCIN Inactive Advance Directives Directive Description Start [...] Ag - Chemistry sodium, serum 141 mmol/L 853-453 1637/12/17 carbon dioxide, venous blood 30.9 mmol/L 21.0-32.0 [...] 50-136 Encounters Code Encounter Date Provider Facility CPT-58712 [id number] Vst-Est Level IV 08:51:04 RESIDENTIAL CHILD CARE COUNSELOR Piotr Daley DO [facility] CPT-88302 [id number] Vst-Est Level III 14:29:05 CDT Piotr W Edi [facility] CPT-09425 Level 3 Est. Patient 15:59:25 RESIDENTIAL CHILD CARE COUNSELOR Piotr Daley [facility] CPT-40110 Level 3 Est. Patient 12:33:59 RESIDENTIAL CHILD CARE COUNSELOR Piotr Daley [facility] CPT-69558 Level 3 Est. Patient 15:56:17 RESIDENTIAL CHILD CARE COUNSELOR Piotr Daley [facility] CPT-79855 Level 3 Est. Patient 10:34:54 RESIDENTIAL CHILD CARE COUNSELOR Piotr Daley [facility] CPT-07086 Level 3 Est. Patient 17:10:19 CDT Nella Harris APRN [facility] CPT-35180 Level 3 Est. Patient 10:48:17 RESIDENTIAL CHILD CARE COUNSELOR Matthew Rangel MD [facility] CPT-12110 Level 4 Est. Patient 17:15:07 RESIDENTIAL CHILD CARE COUNSELOR Piotr Daley [facility] CPT-65492 Level 3 Est. Patient 12:46:13 RESIDENTIAL CHILD CARE COUNSELOR Piotr Daely [facility] CPT-33790 Level 3 Est. Patient 15:14:31 RESIDENTIAL CHILD CARE COUNSELOR Piotr Daley [facility] CPT-71515 Level 3 Est. Patient 09:20:13 RESIDENTIAL CHILD CARE COUNSELOR Piotr Daley [facility] CPT-79445 Level 3 Est. Patient 09:49:40 CDT Piotr Daley [facility] CPT-65364 Level 3 Est. Patient 16:28:11 CDT Piotr Daley [facility] CPT-27332 Level 3 Est. Patient 12:41:58 RESIDENTIAL CHILD CARE COUNSELOR Piotr Daley [facility] CPT-47305 Level 3 Est. Patient 09:21:[address] [facility] CPT-21383 Level 3 Est. Patient 09:21:[address] [facility] CPT-14806 Level 3 Est. Patient 11:16:29 RESIDENTIAL CHILD CARE COUNSELOR Piotr Wilson Edi [facility] CPT-38872 Level 3 Est. Patient 18:40:19 RESIDENTIAL CHILD CARE COUNSELOR Piotr Daley [facility] CPT-63633 Level 3 Est. Patient 19:30:50 CDT Piotr Dalye [facility] CPT-28792 Level 3 Est. Patient 22:06:44 CDT Katrina Rinaldi MD [facility] CPT-42012 Level 3 Est. Patient 14:20:00 CDT Piotr Daley [facility] CPT-61928 Level 3 Est. Patient 14:15:22 RESIDENTIAL CHILD CARE COUNSELOR Piotr Daley [facility] CPT-27030 Level 3 Est. Patient 20:19:57 RESIDENTIAL CHILD CARE COUNSELOR Piotr Daley [facility] CPT-98622 Level 3 Est. Patient 16:44:32 CDT Piotr Daley [facility] CPT-09974 Level 3 Est. Patient 08:48:46 RESIDENTIAL CHILD CARE COUNSELOR Piotr Daley [facility] CPT-07795 Level 3 Est. Patient 21:01:21 CDT Piotr Wilson [facility] Procedures Code Procedure Name Date Entry Date Standard Description CPT-Cryo Cryotherapy 08:51:04 RESIDENTIAL CHILD CARE COUNSELOR CPT-G0439 Subsequent Annual Wellness Exam 08:51:04 RESIDENTIAL CHILD CARE COUNSELOR CPT-60254 Sacroiliac jt < 3V - XRAY USE ONLY 16:45:19 RESIDENTIAL CHILD CARE COUNSELOR 05/09 CPT-83645 LS spine comp w obliques - XRAY USE ONLY 14:52:26 RESIDENTIAL CHILD CARE COUNSELOR CPT-82784 Chest, 2 views 12:55:58 RESIDENTIAL CHILD CARE COUNSELOR CPT-G0439 Subsequent Annual Wellness Exam 10:34:52 RESIDENTIAL CHILD CARE COUNSELOR CPT-85847 BMP - LAB USE ONLY 17:19:11 RESIDENTIAL CHILD CARE COUNSELOR CPT-93029 PT/INR - LAB USE ONLY 17:19:10 RESIDENTIAL CHILD CARE COUNSELOR CPT-21536 Venipuncture Draw Fee 17:19:10 RESIDENTIAL CHILD CARE COUNSELOR CPT-86923 PT/INR - LAB USE ONLY 08:12:25 RESIDENTIAL CHILD CARE COUNSELOR CPT-26027 Venipuncture Draw Fee 08:12:24 RESIDENTIAL CHILD CARE COUNSELOR CPT-98343 Venipuncture Draw Fee 11:31:07 RESIDENTIAL CHILD CARE COUNSELOR CPT-50903 TPSA - LAB USE ONLY 11:31:07 RESIDENTIAL CHILD CARE COUNSELOR CPT-40313 PT/INR - LAB USE ONLY 11:31:07 RESIDENTIAL CHILD CARE COUNSELOR CPT-G0439 [facility] Annual Wellness Exam 09:59:29 RESIDENTIAL CHILD CARE COUNSELOR CPT-00350 Creatinine - LAB USE ONLY 14:37:55 RESIDENTIAL CHILD CARE COUNSELOR CPT-09394 PT/INR - LAB USE ONLY 14:37:55 RESIDENTIAL CHILD CARE COUNSELOR CPT-22764 Venipuncture Draw Fee 14:37:55 RESIDENTIAL CHILD CARE COUNSELOR CPT-81742 LS spine comp w obliques - XRAY USE ONLY 12:59:25 RESIDENTIAL CHILD CARE COUNSELOR CPT-84846 PT/INR - LAB USE ONLY 13:49:20 CDT CPT-68837 Venipuncture Draw Fee 13:49:19 CDT CPT-25505 PT/INR - LAB USE ONLY 15:48:49 CDT CPT-08041 Venipuncture Draw Fee 15:48:49 CDT CPT-00124 Venipuncture Draw Fee 11:31:59 CDT CPT-41155 PT/INR - LAB USE ONLY 11:31:59 CDT CPT-90741 Venipuncture Draw Fee 13:29:15 CDT CPT-87480 Thoracolumbar AP/Lat 15:19:19 RESIDENTIAL CHILD CARE COUNSELOR CPT-G0438 Initial Annual Wellness Exam 12:18:54 RESIDENTIAL CHILD CARE COUNSELOR CPT-76627 Knee 3V 09:57:38 CDT CPT-OV Office Visit 15:45:01 RESIDENTIAL CHILD CARE COUNSELOR CPT-59091 Abd compl w upright 17:10:25 CDT
--- OUTSIDE RECORDS SUMMARY | 2018-07-18 07:32 | XMS REPORT | Clinical Summary ---
Author Author Admin, E Organization [employer] Address Unknown Phone Unavailable Allergies, Adverse Reactions, [...] malignant neoplasm of prostate V10.46 Active Alina Myeers [employer] Personal history of malignant neoplasm of prostate Coronary artery disease 414.00 Active Alina Meyers APRN Coronary atherosclerosis of unspecified type of vessel, [place] or graft Back pain, thoracic region, left [...] LPN Seborrheic keratosis ICD-702.19 Inactive Sirisha Chen LOG SKIDDER Bronchitis-Acute ICD-466.0 Inactive Piotr Daley DO Leg pain, right ICD-729.5 Inactive Sirisha Chen LOG SKIDDER Right leg pain ICD-729.5 Inactive Sirisha Chen LOG SKIDDER Bronchitis-Acute ICD-466.0 Inactive Sirisha Chen LOG SKIDDER Knee pain, left ICD-719.46 Inactive Sirisha Chen LOG SKIDDER Actinic keratoses ICD-702.0 Inactive Sirisha Chen LOG SKIDDER Back pain, thoracic region, left ICD-724.1 Inactive Piotr Daley DO Thoracic back pain ICD-724.5 Inactive Sirisha Chen LOG SKIDDER Back pain lumbar ICD-724.2 Inactive Sirisha Chen LOG SKIDDER Insect bite ICD-919.4 Inactive Sirisha Chen LOG SKIDDER Pruritus ICD-698.9 Inactive Sirisha Chen LOG SKIDDER 04/09 Bronchitis-Acute ICD-466.0 Inactive Sirisha Chen LOG SKIDDER Dyspnea ICD-786.09 Inactive Sirisha Chen LOG SKIDDER 05/09 Pes anserinus bursitis, right ICD-726.61 Inactive Piotr Daley DO Medication List Medication Instructions Start Date Stop Date Generic Name NDC Status Provider Patient Instruction TRIAMCINOLONE ACETONIDE 0.1 % EXTERNAL CREAM apply bid sparingly to rash 2017 TRIAMCINOLONE ACETONIDE 38352532852 No Longer Active Piotr Daley DO Active NYSTATIN 199651 UNIT/GM EXTERNAL CREAM Apply to rash 2-3 times a day and may repeat as needed NYSTATIN 10097496889 No Longer Active Piotr Daley DO Active WARFARIN SODIUM 4 MG ORAL TABLET 1 tablet by mouth daily WARFARIN SODIUM 86596409035 Active Sirisha Chen LPN Active MELOXICAM 15 MG ORAL TABLET 1 po q day for pain with food MELOXICAM 96069161507 Active Piotr Daley DO Active PREDNISONE 10 MG ORAL TABLET 1 tablet by mouth daily PREDNISONE 32325162492 No Longer Active Emelyn Norris Active TESSALON PERLES 100 MG ORAL CAPSULE 1-2 tablet by mouth 3 times daily 04/16 BENZONATATE 11859582357 No Longer Active Emelyn Norris Active PREDNISONE 20 MG ORAL TABLET two tabs by mouth today, then one tab by mouth days two and three PREDNISONE 06423526888 No Longer Active Piotr Daley DO Active CYCLOBENZAPRINE HCL 10 MG ORAL TABLET 1 tablet by mouth three times daily as needed for muscle spasm/pain CYCLOBENZAPRINE HCL 55349913398 Active Sirisha Chen LPN Active ZITHROMAX 250 MG ORAL TABLET Take two (2 ) tablets day one, then one (1) tablet a day for four (4) more days AZITHROMYCIN 11025583624 No Longer Active Piotr Daley DO Active PROAIR HFA 108 (90 BASE) MCG/ACT INHALATION AEROSOL SOLUTION 1-2 puffs four times a day as needed ALBUTEROL SULFATE 05324588815 No Longer Active Emelyn Norris Active DOXYCYCLINE HYCLATE 100 MG ORAL CAPSULE 1 cap by mouth BID x10 days DOXYCYCLINE HYCLATE 02730716822 No Longer Active Nella Harris APRN Active PREDNISONE 20 MG ORAL TABLET 2 tabs daily for 3 days, 1 tab daily for 3 days, 1/2 tab daily for 2 days PREDNISONE 14069493099 No Longer Active Matthew Rangel MD Active TRAMADOL HCL 50 MG ORAL TABLET 1 po tid with ES Tylenol TRAMADOL HCL 09952494114 No Longer Active Matthew Rangel MD Active GABAPENTIN 300 MG ORAL CAPSULE 1 po q hs for nerve pain GABAPENTIN 92611761317 No Longer Active Matthew Rangel MD Active PREDNISONE 20 MG ORAL TABLET 2 tablets today, then 1 tablet days 2 through 4 PREDNISONE 40584935860 No Longer Active Piotr Daley DO Active AZITHROMYCIN 250 MG ORAL TABLET 2 po qd x 1 day, then 1 po qd x 4 days 07/12 AZITHROMYCIN 56063500069 No Longer Active Piotr Daley DO Active IBUPROFEN 800 MG ORAL TABLET 1 tab every 8 hours as needed 07/12 IBUPROFEN 61617552695 No Longer Active Piotr Daley DO Active LOMOTIL 2.5-0.025 MG ORAL TABLET 1 to 2 four times a day as needed for diarrhea DIPHENOXYLATE-ATROPINE 03376694078 No Longer Active Piotr Daley DO Active WARFARIN SODIUM 4 MG ORAL TABLET 1 tab every evening WARFARIN SODIUM 84214205046 No Longer Active Piotr Daley DO Active PREDNISONE 20 MG ORAL TABLET 1 tablet twice daily for 2 days, then 1 tablet once daily for 2 days PREDNISONE 20065646905 No Longer Active Piotr Daley DO Active PROMETHAZINE HCL 25 MG ORAL TABLET 1 four times a day as needed for nausea/ vomiting PROMETHAZINE HCL 46800933658 No Longer Active Piotr Daley DO Active TUSSIONEX PENNKINETIC ER 10-8 MG/5ML ORAL SUSPENSION EXTENDED RELEASE 5ml po q12hr PRN Cough HYDROCOD POLST-CHLORPHEN POLST 80256117763 No Longer Active Piotr Daley DO Active AZITHROMYCIN 250 MG ORAL TABLET 2 po qd x 1 day, then 1 po qd x 4 days 10/13 AZITHROMYCIN 59390420888 No Longer Active Piotr Daley DO Active AZITHROMYCIN 250 MG ORAL TABLET 2 po qd x 1 day, then 1 po qd x 4 days 05/07 AZITHROMYCIN 21130810558 No Longer Active Piotr Daley DO Active LISINOPRIL-HYDROCHLOROTHIAZIDE 10-12.5 MG ORAL TABLET 1 tab by mouth daily LISINOPRIL-HYDROCHLOROTHIAZIDE 26612469574 Active Piotr Daley DO Active LISINOPRIL 10 MG ORAL TABLET 1/2-1 tab po every other day LISINOPRIL 72696506093 No Longer Active Piotr Daley DO Active VENTOLIN HFA 108 (90 Base) MCG/ACT INHALATION AEROSOL SOLUTION 2 puffs four times a day PRN cough ALBUTEROL SULFATE 10785273147 No Longer Active Piotr Daley DO Active NYSTATIN-TRIAMCINOLONE 666179-8.1 UNIT/GM-% EXTERNAL CREAM Apply to area BID NYSTATIN-TRIAMCINOLONE 82862265049 No Longer Active Alena Chavira LOG SKIDDER Active PHISOHEX 3 % LIQD Use Directed HEXACHLOROPHENE 69487331159 No Longer Active Sandra Anguilla Active AZITHROMYCIN 250 MG ORAL TABLET 2 po qd x 1 day, then 1 po qd x 4 days 10/21 AZITHROMYCIN 41191549275 No Longer Active Katrina Rinaldi MD PhD Active AZITHROMYCIN 250 MG ORAL TABLET 2 po qd x 1 day, then 1 po qd x 4 days 10/16 AZITHROMYCIN 32106065957 No Longer Active Piotr Daley DO Active AZITHROMYCIN 500 MG INTRAVENOUS SOLUTION RECONSTITUTED 1 po q day AZITHROMYCIN 68464013262 No Longer Active Piotr Daley DO Active NYSTATIN-TRIAMCINOLONE 016492-2.1 UNIT/GM-% EXTERNAL CREAM apply bid NYSTATIN-TRIAMCINOLONE 81407990131 No Longer Active Piotr Daley DO Active IBUPROFEN 800 MG ORAL TABLET 1 po q 8 hours prn pain sparinly IBUPROFEN 46826658329 No Longer Active Piotr Daley DO Active VITAMIN D3 5000 UNIT ORAL CAPSULE 1 po daily CHOLECALCIFEROL 95422401529 Active Piotr Daley DO Active IBUPROFEN 800 MG ORAL TABLET 1 po q 8 hours prn pain sparinly IBUPROFEN 800 MG ORAL TABLET 858171 IBUPROFEN Inactive NYSTATIN-TRIAMCINOLONE 161355-8.1 UNIT/GM-% EXTERNAL CREAM apply bid NYSTATIN-TRIAMCINOLONE 050134-2.1 UNIT/GM-% EXTERNAL CREAM 0997475 NYSTATIN-TRIAMCINOLONE Inactive AZITHROMYCIN 500 MG INTRAVENOUS SOLUTION RECONSTITUTED 1 po q day AZITHROMYCIN 500 MG INTRAVENOUS SOLUTION RECONSTITUTED 84616332552 AZITHROMYCIN Inactive VENTOLIN HFA 108 (90 Base) MCG/ACT INHALATION AEROSOL SOLUTION 2 puffs four times a day PRN cough VENTOLIN HFA 108 (90 Base) MCG/ ACT INHALATION AEROSOL SOLUTION ALBUTEROL SULFATE Inactive LISINOPRIL 10 MG ORAL TABLET 1/2-1 tab po every other day LISINOPRIL 10 MG ORAL TABLET 488095 LISINOPRIL Inactive TUSSIONEX PENNKINETIC ER 10-8 MG/5ML ORAL SUSPENSION EXTENDED RELEASE 5ml po q12hr PRN Cough TUSSIONEX PENNKINETIC ER 10-8 MG/5ML ORAL SUSPENSION EXTENDED RELEASE HYDROCOD POLST-CHLORPHEN POLST Inactive PROMETHAZINE HCL 25 MG ORAL TABLET 1 four times a day as needed for nausea/ vomiting PROMETHAZINE HCL 25 MG ORAL TABLET 253830 PROMETHAZINE HCL Inactive PREDNISONE 20 MG ORAL TABLET 1 tablet twice daily for 2 days, then 1 tablet once daily for 2 days PREDNISONE 20 MG ORAL TABLET 864168 PREDNISONE Inactive WARFARIN SODIUM 4 MG ORAL TABLET 1 tab every evening WARFARIN SODIUM 4 MG ORAL TABLET 290962 WARFARIN SODIUM Inactive LOMOTIL 2.5-0.025 MG ORAL TABLET 1 to 2 four times a day as needed for diarrhea LOMOTIL 2.5-0.025 MG ORAL TABLET 1412328 DIPHENOXYLATE-ATROPINE Inactive IBUPROFEN 800 MG ORAL TABLET 1 tab every 8 hours as needed 07/12 IBUPROFEN 800 MG ORAL TABLET 594704 IBUPROFEN Inactive PREDNISONE 20 MG ORAL TABLET 2 tablets today, then 1 tablet days 2 through 4 PREDNISONE 20 MG ORAL TABLET 706537 PREDNISONE Inactive GABAPENTIN 300 MG ORAL CAPSULE 1 po q hs for nerve pain GABAPENTIN 300 MG ORAL CAPSULE 131419 GABAPENTIN Inactive TRAMADOL HCL 50 MG ORAL TABLET 1 po tid with ES Tylenol TRAMADOL HCL 50 MG ORAL TABLET 687991 TRAMADOL HCL Inactive PROAIR HFA 108 (90 BASE) MCG/ACT INHALATION AEROSOL SOLUTION 1-2 puffs four times a day as needed PROAIR HFA 108 (90 BASE) MCG/ACT INHALATION AEROSOL SOLUTION ALBUTEROL SULFATE Inactive PREDNISONE 20 MG ORAL TABLET two tabs by mouth today, then one tab by mouth days two and three PREDNISONE 20 MG ORAL TABLET 757924 PREDNISONE Inactive TESSALON PERLES 100 MG ORAL CAPSULE 1-2 tablet by mouth 3 times daily 04/16 TESSALON PERLES 100 MG ORAL CAPSULE 333382 BENZONATATE Inactive PREDNISONE 10 MG ORAL TABLET 1 tablet by mouth daily PREDNISONE 10 MG ORAL TABLET 444079 PREDNISONE Inactive NYSTATIN 416007 UNIT/GM EXTERNAL CREAM Apply to rash 2-3 times a day and may repeat as needed NYSTATIN 743666 UNIT/GM EXTERNAL CREAM 003752 NYSTATIN Inactive TRIAMCINOLONE ACETONIDE 0.1 % EXTERNAL CREAM apply bid sparingly to rash 2017 TRIAMCINOLONE ACETONIDE 0.1 % EXTERNAL CREAM 7377400 TRIAMCINOLONE ACETONIDE Inactive AZITHROMYCIN 250 MG ORAL TABLET 2 po qd x 1 day, then 1 po qd x 4 days 10/16 AZITHROMYCIN 250 MG ORAL TABLET 517468 AZITHROMYCIN Inactive AZITHROMYCIN 250 MG ORAL TABLET 2 po qd x 1 day, then 1 po qd x 4 days 10/21 AZITHROMYCIN 250 MG ORAL TABLET 507856 AZITHROMYCIN Inactive NYSTATIN-TRIAMCINOLONE 491524-8.1 UNIT/GM-% EXTERNAL CREAM Apply to area BID NYSTATIN-TRIAMCINOLONE 668252-0.1 UNIT/GM-% EXTERNAL CREAM 8366412 NYSTATIN-TRIAMCINOLONE Inactive AZITHROMYCIN 250 MG ORAL TABLET 2 po qd x 1 day, then 1 po qd x 4 days 05/07 AZITHROMYCIN 250 MG ORAL TABLET 732804 AZITHROMYCIN Inactive AZITHROMYCIN 250 MG ORAL TABLET 2 po qd x 1 day, then 1 po qd x 4 days 10/13 AZITHROMYCIN 250 MG ORAL TABLET 094081 AZITHROMYCIN Inactive AZITHROMYCIN 250 MG ORAL TABLET 2 po qd x 1 day, then 1 po qd x 4 days 07/12 AZITHROMYCIN 250 MG ORAL TABLET 192155 AZITHROMYCIN Inactive PREDNISONE 20 MG ORAL TABLET 2 tabs daily for 3 days, 1 tab daily for 3 days, 1/2 tab daily for 2 days PREDNISONE 20 MG ORAL TABLET 880542 PREDNISONE Inactive DOXYCYCLINE HYCLATE 100 MG ORAL CAPSULE 1 cap by mouth BID x10 days DOXYCYCLINE HYCLATE 100 MG ORAL CAPSULE 7688747 DOXYCYCLINE HYCLATE Inactive ZITHROMAX 250 MG ORAL TABLET Take two (2 ) tablets day one, then one (1) tablet a day for four (4) more days ZITHROMAX 250 MG ORAL TABLET 966726 AZITHROMYCIN Inactive Advance Directives Directive Description Start [...] Ag - Chemistry sodium, serum 141 mmol/L 218-168 1121/12/17 carbon dioxide, venous blood 30.9 mmol/L 21.0-32.0 [...] 50-136 Encounters Code Encounter Date Provider Facility CPT-62681 [id number] Vst-Est Level IV 08:51:04 LINES TENDER Piotr Daley DO [facility] CPT-52695 [id number] Vst-Est Level III 14:29:05 CDT Piotr W [facility] CPT-00435 Level 3 Est. Patient 15:59:25 LINES TENDER Piotr Daley [facility] CPT-73563 Level 3 Est. Patient 12:33:59 LINES TENDER Piotr Daley [facility] CPT-99511 Level 3 Est. Patient 15:56:17 LINES TENDER Piotr Daley [facility] CPT-35514 Level 3 Est. Patient 10:34:54 LINES TENDER Piotr Daley [facility] CPT-37478 Level 3 Est. Patient 17:10:19 CDT Nella Harris APRN [facility] CPT-39462 Level 3 Est. Patient 10:48:17 LINES TENDER Matthew Rangel MD [facility] CPT-31248 Level 4 Est. Patient 17:15:07 LINES TENDER Piotr Daley [facility] CPT-60915 Level 3 Est. Patient 12:46:13 LINES TENDER Piotr Daley [facility] CPT-38942 Level 3 Est. Patient 15:14:31 LINES TENDER Piort Daley [facility] CPT-00533 Level 3 Est. Patient 09:20:13 LINES TENDER Piotr Daley [facility] CPT-93739 Level 3 Est. Patient 09:49:40 CDT Piotr Daley [facility] CPT-52776 Level 3 Est. Patient 16:28:11 CDT Piotr Katie Daley [facility] CPT-45087 Level 3 Est. Patient 12:41:58 LINES TENDER Piotr Daley [facility] CPT-63759 Level 3 Est. Patient 09:21:24 CDT Piotr Wilson [facility] CPT-70917 Level 3 Est. Patient 09:21:11 CDT Piotr Wilson [facility] CPT-28960 Level 3 Est. Patient 11:16:29 LINES TENDER Piotr Wilson Edi [facility] CPT-03932 Level 3 Est. Patient 18:40:19 LINES TENDER Piotr Daley [facility] CPT-33318 Level 3 Est. Patient 19:30:50 CDT Piotr Daley [facility] CPT-54157 Level 3 Est. Patient 22:06:44 CDT Katrina Rinaldi MD [facility] CPT-08393 Level 3 Est. Patient 14:20:00 CDT Piotr Daley [facility] CPT-43988 Level 3 Est. Patient 14:15:22 LINES TENDER Piotr Daley [facility] CPT-29140 Level 3 Est. Patient 20:19:57 LINES TENDER Piotr Daley [facility] CPT-06273 Level 3 Est. Patient 16:44:32 CDT Piotr Daley [facility] CPT-66379 Level 3 Est. Patient 08:48:46 LINES TENDER Piotr Daley [facility] CPT-29050 Level 3 Est. Patient 21:01:21 CDT Piotr Wilson [facility] Procedures Code Procedure Name Date Entry Date Standard Description CPT-Cryo Cryotherapy 08:51:04 LINES TENDER CPT-G0439 Subsequent Annual Wellness Exam 08:51:04 LINES TENDER CPT-48469 Sacroiliac jt < 3V - XRAY USE ONLY 16:45:19 LINES TENDER 05/09 CPT-04666 LS spine comp w obliques - XRAY USE ONLY 14:52:26 LINES TENDER CPT-60765 Chest, 2 views 12:55:58 LINES TENDER CPT-G0439 Subsequent Annual Wellness Exam 10:34:52 LINES TENDER CPT-32178 BMP - LAB USE ONLY 17:19:11 LINES TENDER CPT-39991 PT/INR - LAB USE ONLY 17:19:10 LINES TENDER CPT-92853 Venipuncture Draw Fee 17:19:10 LINES TENDER CPT-33936 PT/INR - LAB USE ONLY 08:12:25 LINES TENDER CPT-19045 Venipuncture Draw Fee 08:12:24 LINES TENDER CPT-13268 Venipuncture Draw Fee 11:31:07 LINES TENDER CPT-47198 TPSA - LAB USE ONLY 11:31:07 LINES TENDER CPT-10683 PT/INR - LAB USE ONLY 11:31:07 LINES TENDER CPT-G0439 [facility] Annual Wellness Exam 09:59:29 LINES TENDER CPT-29948 Creatinine - LAB USE ONLY 14:37:55 LINES TENDER CPT-23075 PT/INR - LAB USE ONLY 14:37:55 LINES TENDER CPT-05650 Venipuncture Draw Fee 14:37:55 LINES TENDER CPT-04375 LS spine comp w obliques - XRAY USE ONLY 12:59:25 LINES TENDER CPT-76932 PT/INR - LAB USE ONLY 13:49:20 CDT CPT-93627 Venipuncture Draw Fee 13:49:19 CDT CPT-20500 PT/INR - LAB USE ONLY 15:48:49 CDT CPT-89494 Venipuncture Draw Fee 15:48:49 CDT CPT-57400 Venipuncture Draw Fee 11:31:59 CDT CPT-99433 PT/INR - LAB USE ONLY 11:31:59 CDT CPT-55895 Venipuncture Draw Fee 13:29:15 CDT CPT-37181 Thoracolumbar AP/Lat 15:19:19 LINES TENDER CPT-G0438 Initial Annual Wellness Exam 12:18:54 LINES TENDER CPT-86713 Knee 3V 09:57:38 CDT CPT-OV Office Visit 15:45:01 LINES TENDER CPT-15044 Abd compl w upright 17:10:25 CDT
[2018-07-18 07:33] VITALS: BP 141/74
--- OUTSIDE RECORDS SUMMARY | 2018-07-18 07:33 | XMS REPORT | Clinical Summary ---
Author Author Admin, Bita Organization [employer] Address Unknown Phone Unavailable Allergies, Adverse Reactions, [...] Coronary atherosclerosis of unspecified type of vessel, [place] or graft Back pain, thoracic region, left [...] health care facility Bronchitis-Acute 466.0 Resolved Emelyn Rodriguezibbita Acute bronchitis Dyspnea 786.09 Resolved Emelyn Norris Other dyspnea and respiratory abnormality Sacroiliitis, right 720.2 Active Emelyn Norris Sacroiliitis, not elsewhere classified FLANK PAIN, RIGHT ICD-789.09 Inactive Katrina Rinaldi MD PhD HEALTH MAINTENANCE EXAM ICD-V70.0 Inactive Katrina Rinaldi MD PhD BRONCHITIS-ACUTE ICD-466.0 Inactive Piotr Daley DO SCREENING, COLON CANCER ICD-V76.51 Inactive Katrina Rinaldi MD PhD BRONCHITIS-ACUTE ICD-466.0 Inactive Piotr Daley DO DEEP VENOUS THROMBOPHLEBITIS, LEG, 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 Inactive Sirisha Chen LPN DEEP VENOUS THROMBOPHLEBITIS, LEG, 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 Inactive Sirisha Gustavo LOO Seborrheic keratosis ICD-702.19 Inactive Sirisha Gustavo LOO Bronchitis-Acute ICD-466.0 Inactive Piotr Daley DO Leg pain, right ICD-729.5 Inactive Sirisha Gustavo LOO Right leg pain ICD-729.5 Inactive Sirisha Gustavo LOO Bronchitis-Acute ICD-466.0 Inactive Sirisha Gustavo LOO Knee pain, left ICD-719.46 Inactive Sirisha Chen RUBBER COVERING MACHINE OPERATOR Actinic keratoses ICD-702.0 Inactive Sirisha Chen RUBBER COVERING MACHINE OPERATOR Back pain, thoracic region, left ICD-724.1 Inactive Piotr Daley DO Thoracic back pain ICD-724.5 Inactive Sirisha Chen RUBBER COVERING MACHINE OPERATOR Back pain lumbar ICD-724.2 Inactive Sirisha Chen RUBBER COVERING MACHINE OPERATOR Insect bite ICD-919.4 Inactive Sirisha Chen RUBBER COVERING MACHINE OPERATOR Pruritus ICD-698.9 Inactive Sirisha Chen RUBBER COVERING MACHINE OPERATOR 04/09 Bronchitis-Acute ICD-466.0 Inactive Sirisha Chen RUBBER COVERING MACHINE OPERATOR Dyspnea ICD-786.09 Inactive Sirisha Chen RUBBER COVERING MACHINE OPERATOR 05/09 Medication List Medication Instructions Start Date Stop Date Generic Name NDC Status Provider Patient Instruction WARFARIN SODIUM 4 MG ORAL TABLET 1 tablet by mouth daily except 2mg on Saturday and Saturday WARFARIN SODIUM 40392973304 Active Anahy Loja Active MELOXICAM 15 MG ORAL TABLET 1 po q day for pain with food MELOXICAM 34613802602 Active Piotr Daley DO Active PREDNISONE 10 MG ORAL TABLET 1 tablet by mouth daily PREDNISONE 78978512397 No Longer Active Emelyn Norris Active TESSALON PERLES 100 MG ORAL CAPSULE 1-2 tablet by mouth 3 times daily 04/16 BENZONATATE 73158620373 No Longer Active Emelyn Norris Active PREDNISONE 20 MG ORAL TABLET two tabs by mouth today, then one tab by mouth days two and three PREDNISONE 77631674785 No Longer Active Piotr W Edi DO Active CYCLOBENZAPRINE HCL 10 MG ORAL TABLET 1 tablet by mouth three times daily as needed for muscle spasm/pain CYCLOBENZAPRINE HCL 42573949360 Active Sirisha Chen LPN Active ZITHROMAX 250 MG ORAL TABLET Take two (2 ) tablets day one, then one (1) tablet a day for four (4) more days AZITHROMYCIN 89573020253 No Longer Active Piotr Daley DO Active PROAIR HFA 108 (90 BASE) MCG/ACT INHALATION AEROSOL SOLUTION 1-2 puffs four times a day as needed ALBUTEROL SULFATE 82826455078 No Longer Active Emelyn Norris Active DOXYCYCLINE HYCLATE 100 MG ORAL CAPSULE 1 cap by mouth BID x10 days DOXYCYCLINE HYCLATE 93589899596 No Longer Active Nella Harris APRN Active PREDNISONE 20 MG ORAL TABLET 2 tabs daily for 3 days, 1 tab daily for 3 days, 1/2 tab daily for 2 days PREDNISONE 67746767318 No Longer Active Matthew Rangel MD Active TRAMADOL HCL 50 MG ORAL TABLET 1 po tid with ES Tylenol TRAMADOL HCL 21776856641 No Longer Active Matthew Rangel MD Active GABAPENTIN 300 MG ORAL CAPSULE 1 po q hs for nerve pain GABAPENTIN 94099311327 No Longer Active Matthew Rangel MD Active PREDNISONE 20 MG ORAL TABLET 2 tablets today, then 1 tablet days 2 through 4 PREDNISONE 21912800255 No Longer Active Piotr Daley DO Active AZITHROMYCIN 250 MG ORAL TABLET 2 po qd x 1 day, then 1 po qd x 4 days 07/12 AZITHROMYCIN 17582723184 No Longer Active Piotr Daley DO Active IBUPROFEN 800 MG ORAL TABLET 1 tab every 8 hours as needed 07/12 IBUPROFEN 43400558933 No Longer Active Piotr Daley DO Active LOMOTIL 2.5-0.025 MG ORAL TABLET 1 to 2 four times a day as needed for diarrhea DIPHENOXYLATE-ATROPINE 89077314219 No Longer Active Piotr Daley DO Active WARFARIN SODIUM 4 MG ORAL TABLET 1 tab every evening WARFARIN SODIUM 79302352078 No Longer Active Piotr Daley DO Active PREDNISONE 20 MG ORAL TABLET 1 tablet twice daily for 2 days, then 1 tablet once daily for 2 days PREDNISONE 61984203591 No Longer Active Piotr Daley DO Active PROMETHAZINE HCL 25 MG ORAL TABLET 1 four times a day as needed for nausea/ vomiting PROMETHAZINE HCL 73904831143 No Longer Active Piotr Daley DO Active TUSSIONEX PENNKINETIC ER 10-8 MG/5ML ORAL SUSPENSION EXTENDED RELEASE 5ml po q12hr PRN Cough HYDROCOD POLST-CHLORPHEN POLST 33417136029 No Longer Active Piotr Daley DO Active AZITHROMYCIN 250 MG ORAL TABLET 2 po qd x 1 day, then 1 po qd x 4 days 10/13 AZITHROMYCIN 58141357526 No Longer Active Piotr Daley DO Active AZITHROMYCIN 250 MG ORAL TABLET 2 po qd x 1 day, then 1 po qd x 4 days 05/07 AZITHROMYCIN 06759628860 No Longer Active Piotr Daley DO Active LISINOPRIL-HYDROCHLOROTHIAZIDE 10-12.5 MG ORAL TABLET 1 tab by mouth daily LISINOPRIL-HYDROCHLOROTHIAZIDE 12166594844 Active Piotr Daley DO Active LISINOPRIL 10 MG ORAL TABLET 1/2-1 tab po every other day LISINOPRIL 95158364340 No Longer Active Piotr Daley DO Active VENTOLIN HFA 108 (90 Base) MCG/ACT INHALATION AEROSOL SOLUTION 2 puffs four times a day PRN cough ALBUTEROL SULFATE 78268138968 No Longer Active Piotr Daley DO Active NYSTATIN-TRIAMCINOLONE 826700-2.1 UNIT/GM-% EXTERNAL CREAM Apply to area BID NYSTATIN-TRIAMCINOLONE 07134973695 No Longer Active Alena Chavira RUBBER COVERING MACHINE OPERATOR Active PHISOHEX 3 % LIQD Use Directed HEXACHLOROPHENE 83810652239 No Longer Active Sandra [place] Active AZITHROMYCIN 250 MG ORAL TABLET 2 po qd x 1 day, then 1 po qd x 4 days 10/21 AZITHROMYCIN 06786834496 No Longer Active Katrina Rinaldi MD PhD Active AZITHROMYCIN 250 MG ORAL TABLET 2 po qd x 1 day, then 1 po qd x 4 days 10/16 AZITHROMYCIN 79457455456 No Longer Active Piotr Daley DO Active AZITHROMYCIN 500 MG INTRAVENOUS SOLUTION RECONSTITUTED 1 po q day AZITHROMYCIN 37875427059 No Longer Active Piotr Daley DO Active NYSTATIN-TRIAMCINOLONE 355943-8.1 UNIT/GM-% EXTERNAL CREAM apply bid NYSTATIN-TRIAMCINOLONE 95994616239 No Longer Active Piotr Daley DO Active IBUPROFEN 800 MG ORAL TABLET 1 po q 8 hours prn pain sparinly IBUPROFEN 50246746286 No Longer Active Piotr Daley DO Active VITAMIN D3 5000 UNIT ORAL CAPSULE 1 po daily CHOLECALCIFEROL 59890228373 Active Piotr Daley DO Active IBUPROFEN 800 MG ORAL TABLET 1 po q 8 hours prn pain sparinly IBUPROFEN 800 MG ORAL TABLET 580031 IBUPROFEN Inactive NYSTATIN-TRIAMCINOLONE 544605-2.1 UNIT/GM-% EXTERNAL CREAM apply bid NYSTATIN-TRIAMCINOLONE 516325-4.1 UNIT/GM-% EXTERNAL CREAM 9753672 NYSTATIN-TRIAMCINOLONE Inactive AZITHROMYCIN 500 MG INTRAVENOUS SOLUTION RECONSTITUTED 1 po q day AZITHROMYCIN 500 MG INTRAVENOUS SOLUTION RECONSTITUTED 92992314854 AZITHROMYCIN Inactive VENTOLIN HFA 108 (90 Base) MCG/ACT INHALATION AEROSOL SOLUTION 2 puffs four times a day PRN cough VENTOLIN HFA 108 (90 Base) MCG/ ACT INHALATION AEROSOL SOLUTION ALBUTEROL SULFATE Inactive LISINOPRIL 10 MG ORAL TABLET 1/2-1 tab po every other day LISINOPRIL 10 MG ORAL TABLET 831285 LISINOPRIL Inactive TUSSIONEX PENNKINETIC ER 10-8 MG/5ML ORAL SUSPENSION EXTENDED RELEASE 5ml po q12hr PRN Cough TUSSIONEX PENNKINETIC ER 10-8 MG/5ML ORAL SUSPENSION EXTENDED RELEASE HYDROCOD POLST-CHLORPHEN POLST Inactive PROMETHAZINE HCL 25 MG ORAL TABLET 1 four times a day as needed for nausea/ vomiting PROMETHAZINE HCL 25 MG ORAL TABLET 951425 PROMETHAZINE HCL Inactive PREDNISONE 20 MG ORAL TABLET 1 tablet twice daily for 2 days, then 1 tablet once daily for 2 days PREDNISONE 20 MG ORAL TABLET 450965 PREDNISONE Inactive WARFARIN SODIUM 4 MG ORAL TABLET 1 tab every evening WARFARIN SODIUM 4 MG ORAL TABLET 170333 WARFARIN SODIUM Inactive LOMOTIL 2.5-0.025 MG ORAL TABLET 1 to 2 four times a day as needed for diarrhea LOMOTIL 2.5-0.025 MG ORAL TABLET 2852089 DIPHENOXYLATE-ATROPINE Inactive IBUPROFEN 800 MG ORAL TABLET 1 tab every 8 hours as needed 07/12 IBUPROFEN 800 MG ORAL TABLET 909402 IBUPROFEN Inactive PREDNISONE 20 MG ORAL TABLET 2 tablets today, then 1 tablet days 2 through 4 PREDNISONE 20 MG ORAL TABLET 752918 PREDNISONE Inactive GABAPENTIN 300 MG ORAL CAPSULE 1 po q hs for nerve pain GABAPENTIN 300 MG ORAL CAPSULE 416231 GABAPENTIN Inactive TRAMADOL HCL 50 MG ORAL TABLET 1 po tid with ES Tylenol TRAMADOL HCL 50 MG ORAL TABLET 521999 TRAMADOL HCL Inactive PROAIR HFA 108 (90 BASE) MCG/ACT INHALATION AEROSOL SOLUTION 1-2 puffs four times a day as needed PROAIR HFA 108 (90 BASE) MCG/ACT INHALATION AEROSOL SOLUTION ALBUTEROL SULFATE Inactive PREDNISONE 20 MG ORAL TABLET two tabs by mouth today, then one tab by mouth days two and three PREDNISONE 20 MG ORAL TABLET 593913 PREDNISONE Inactive TESSALON PERLES 100 MG ORAL CAPSULE 1-2 tablet by mouth 3 times daily 04/16 TESSALON PERLES 100 MG ORAL CAPSULE 669851 BENZONATATE Inactive PREDNISONE 10 MG ORAL TABLET 1 tablet by mouth daily PREDNISONE 10 MG ORAL TABLET 859400 PREDNISONE Inactive AZITHROMYCIN 250 MG ORAL TABLET 2 po qd x 1 day, then 1 po qd x 4 days 10/16 AZITHROMYCIN 250 MG ORAL TABLET 981724 AZITHROMYCIN Inactive AZITHROMYCIN 250 MG ORAL TABLET 2 po qd x 1 day, then 1 po qd x 4 days 10/21 AZITHROMYCIN 250 MG ORAL TABLET 175455 AZITHROMYCIN Inactive NYSTATIN-TRIAMCINOLONE 998770-3.1 UNIT/GM-% EXTERNAL CREAM Apply to area BID NYSTATIN-TRIAMCINOLONE 475021-0.1 UNIT/GM-% EXTERNAL CREAM 0269712 NYSTATIN-TRIAMCINOLONE Inactive AZITHROMYCIN 250 MG ORAL TABLET 2 po qd x 1 day, then 1 po qd x 4 days 05/07 AZITHROMYCIN 250 MG ORAL TABLET 278518 AZITHROMYCIN Inactive AZITHROMYCIN 250 MG ORAL TABLET 2 po qd x 1 day, then 1 po qd x 4 days 10/13 AZITHROMYCIN 250 MG ORAL TABLET 307713 AZITHROMYCIN Inactive AZITHROMYCIN 250 MG ORAL TABLET 2 po qd x 1 day, then 1 po qd x 4 days 07/12 AZITHROMYCIN 250 MG ORAL TABLET 918421 AZITHROMYCIN Inactive PREDNISONE 20 MG ORAL TABLET 2 tabs daily for 3 days, 1 tab daily for 3 days, 1/2 tab daily for 2 days PREDNISONE 20 MG ORAL TABLET 829429 PREDNISONE Inactive DOXYCYCLINE HYCLATE 100 MG ORAL CAPSULE 1 cap by mouth BID x10 days DOXYCYCLINE HYCLATE 100 MG ORAL CAPSULE 5587216 DOXYCYCLINE HYCLATE Inactive ZITHROMAX 250 MG ORAL TABLET Take two (2 ) tablets day one, then one (1) tablet a day for four (4) more days ZITHROMAX 250 MG ORAL TABLET 484960 AZITHROMYCIN Inactive Advance Directives Directive Description Start Date LIVING WILL LIVING WILL Vital Signs Date Name Value Unit Range Description blood pressure, diastolic 76 mm[Hg] BP phan [...] temperature weight E&M 224.31 [lb_av] Weight Measured blood pressure, diastolic 74 mm[Hg] BP phan blood pressure, systolic 136 mm[Hg] BP sys height E&M 71 [in_us] Bdy height pulse rate E&M 65 /min Heart rate temperature E&M 96.1 [degF] Body temperature weight E&M 221 [lb_av] Weight Measured blood pressure, diastolic 71 mm[Hg] BP phan blood pressure, systolic 129 mm[Hg] BP sys height E&M 71 [in_us] Bdy height pulse rate E&M 69 /min Heart rate temperature E&M 97.8 [degF] Body temperature weight E&M 229.31 [lb_av] Weight Measured Diagnostic Results Date Name Value Unit Range Description Lab Report: CBC-QUEST - Hematology mean corpuscular hemoglobin, RBC 28.1 pg 27.0-33.0 mean corpuscular hemoglobin concentration, RBC 33.5 G/DL % 32.0- 36.0 red blood cell distribution width 14.0 % 11.0-15.0 platelet count 172 THOUSAND/UL 10*3/mm3 503-887 9766/04/12 mean platelet volume 8.6 fL 7.5-12.5 mean corpuscular volume, RBC 83.9 fL 80.0-100.0 hematocrit, blood 43.0 % 38.5-50.0 hemoglobin, blood 14.4 g/dL 13.2-17.1 erythrocyte (RBC) count 5.13 MILLION/UL 10*6/mm3 4.20-5.80 leukocyte count, blood 5.4 THOUSAND/UL 10*3/mm3 3.8-10.8 Lab Report: Prothrombin Time Hemochron - Coagulation prothrombin time (patient) 33.0 SECS s 18.9-24.9 Encounters Code Encounter Date Provider Facility CPT-67685 Level 3 Est. Patient 15:59:25 MOLECULAR BIOLOGY SCIENTIST Piotr Daley [facility] CPT-26080 Level 3 Est. Patient 12:33:59 MOLECULAR BIOLOGY SCIENTIST Piotr Daley [facility] CPT-06633 Level 3 Est. Patient 15:56:17 MOLECULAR BIOLOGY SCIENTIST Piotr Daley [facility] CPT-82227 Level 3 Est. Patient 10:34:54 MOLECULAR BIOLOGY SCIENTIST Piotr Daley [facility] CPT-92603 Level 3 Est. Patient 17:10:19 CDT Nella Harris APRN [facility] CPT-63248 Level 3 Est. Patient 10:48:17 MOLECULAR BIOLOGY SCIENTIST Matthew Rangel MD [facility] CPT-31841 Level 4 Est. Patient 17:15:07 MOLECULAR BIOLOGY SCIENTIST Piotr Daley [facility] CPT-20510 Level 3 Est. Patient 12:46:13 MOLECULAR BIOLOGY SCIENTIST Piotr Daley [facility] CPT-94156 Level 3 Est. Patient 15:14:31 MOLECULAR BIOLOGY SCIENTIST Piotr Katie Daley [facility] CPT-39501 Level 3 Est. Patient 09:20:13 MOLECULAR BIOLOGY SCIENTIST Piotr Katie Daley [facility] CPT-29651 Level 3 Est. Patient 09:49:40 CDT Piotr Katie Daley [facility] CPT-40731 Level 3 Est. Patient 16:28:11 CDT Piotr Daley [facility] CPT-98701 Level 3 Est. Patient 12:41:58 MOLECULAR BIOLOGY SCIENTIST Piotr Daley [facility] CPT-94744 Level 3 Est. Patient 09:21:24 CDT Piotr Daley [facility] CPT-20250 Level 3 Est. Patient 09:21:11 CDT Piotr Daley [facility] CPT-95138 Level 3 Est. Patient 11:16:29 MOLECULAR BIOLOGY SCIENTIST Piotr Katie Daley [facility] CPT-67174 Level 3 Est. Patient 18:40:19 MOLECULAR BIOLOGY SCIENTIST Piotr Daley [facility] CPT-43466 Level 3 Est. Patient 19:30:50 CDT Piotr Daley [facility] CPT-39907 Level 3 Est. Patient 22:06:44 CDT Katrina Rinaldi MD [facility] CPT-69731 Level 3 Est. Patient 14:20:00 CDT Piotr Daley [facility] CPT-20047 Level 3 Est. Patient 14:15:22 MOLECULAR BIOLOGY SCIENTIST Piotr Daley [facility] CPT-59702 Level 3 Est. Patient 20:19:57 MOLECULAR BIOLOGY SCIENTIST Piotr Daley [facility] CPT-98319 Level 3 Est. Patient 16:44:32 CDT Piotr Daley [facility] CPT-67107 Level 3 Est. Patient 08:48:46 MOLECULAR BIOLOGY SCIENTIST Piotr Daley [facility] CPT-94400 Level 3 Est. Patient 21:01:21 CDT Piotr Daley DO [facility] Procedures Code Procedure Name Date Entry Date Standard Description CPT-61179 Sacroiliac jt < 3V - XRAY USE ONLY 16:45:19 MOLECULAR BIOLOGY SCIENTIST 05/09 CPT-95666 LS spine comp w obliques - XRAY USE ONLY 14:52:26 MOLECULAR BIOLOGY SCIENTIST CPT-49503 Chest, 2 views 12:55:58 MOLECULAR BIOLOGY SCIENTIST CPT-G0439 Subsequent Annual Wellness Exam 10:34:52 MOLECULAR BIOLOGY SCIENTIST CPT-45169 BMP - LAB USE ONLY 17:19:11 MOLECULAR BIOLOGY SCIENTIST CPT-89145 PT/INR - LAB USE ONLY 17:19:10 MOLECULAR BIOLOGY SCIENTIST CPT-04230 Venipuncture Draw Fee 17:19:10 MOLECULAR BIOLOGY SCIENTIST CPT-07535 PT/INR - LAB USE ONLY 08:12:25 MOLECULAR BIOLOGY SCIENTIST CPT-95386 Venipuncture Draw Fee 08:12:24 MOLECULAR BIOLOGY SCIENTIST CPT-84165 Venipuncture Draw Fee 11:31:07 MOLECULAR BIOLOGY SCIENTIST CPT-20425 TPSA - LAB USE ONLY 11:31:07 [facility] CPT-11314 PT/INR - LAB USE ONLY 11:31:07 MOLECULAR BIOLOGY SCIENTIST CPT-G0439 Subsequent Annual Wellness Exam 09:59:29 MOLECULAR BIOLOGY SCIENTIST CPT-62182 Creatinine - LAB USE ONLY 14:37:55 MOLECULAR BIOLOGY SCIENTIST CPT-55411 PT/INR - LAB USE ONLY 14:37:55 MOLECULAR BIOLOGY SCIENTIST CPT-02628 Venipuncture Draw Fee 14:37:55 MOLECULAR BIOLOGY SCIENTIST CPT-11301 LS spine comp w obliques - XRAY USE ONLY 12:59:25 MOLECULAR BIOLOGY SCIENTIST CPT-88888 PT/INR - LAB USE ONLY 13:49:20 CDT CPT-24902 Venipuncture Draw Fee 13:49:19 CDT CPT-07329 PT/INR - LAB USE ONLY 15:48:49 CDT CPT-75470 Venipuncture Draw Fee 15:48:49 CDT CPT-78663 Venipuncture Draw Fee 11:31:59 CDT CPT-93675 PT/INR - LAB USE ONLY 11:31:59 CDT CPT-92431 Venipuncture Draw Fee 13:29:15 CDT CPT-52378 Thoracolumbar AP/Lat 15:19:19 MOLECULAR BIOLOGY SCIENTIST CPT-G0438 Initial Annual Wellness Exam 12:18:54 MOLECULAR BIOLOGY SCIENTIST CPT-42054 Knee 3V 09:57:38 CDT CPT-OV Office Visit 15:45:01 MOLECULAR BIOLOGY SCIENTIST CPT-34078 Abd compl w upright 17:10:25 CDT
--- OUTSIDE RECORDS SUMMARY | 2018-07-18 07:33 | XMS REPORT | Clinical Summary ---
Author Author Admin, B[facility] Organization [facility] Address Unknown Phone Unavailable Allergies, Adverse Reactions, [...] atherosclerosis of unspecified type of vessel, [place] or graft Back pain, thoracic region, left [...] Right leg pain ICD-729.5 Inactive Sirisha Gustavo OLO Bronchitis-Acute ICD-466.0 Inactive Sirisha Gustavo LOO Knee pain, left ICD-719.46 Inactive Sirisha Chen CARDIAC REHABILITATION PROGRAM DIRECTOR Actinic keratoses ICD-702.0 Inactive Sirisha Chen CARDIAC REHABILITATION PROGRAM DIRECTOR Back pain, thoracic region, left ICD-724.1 Inactive Piotr Daley DO Thoracic back pain ICD-724.5 Inactive Sirisha Chen CARDIAC REHABILITATION PROGRAM DIRECTOR Back pain lumbar ICD-724.2 Inactive Sirisha Chen CARDIAC REHABILITATION PROGRAM DIRECTOR Insect bite ICD-919.4 Inactive Sirisha Chen CARDIAC REHABILITATION PROGRAM DIRECTOR Pruritus ICD-698.9 Inactive Sirisha Chen CARDIAC REHABILITATION PROGRAM DIRECTOR 04/09 Bronchitis-Acute ICD-466.0 Inactive Sirisha Chen CARDIAC REHABILITATION PROGRAM DIRECTOR Dyspnea ICD-786.09 Inactive Sirisha Chen CARDIAC REHABILITATION PROGRAM DIRECTOR 05/09 Medication List Medication Instructions Start Date Stop Date Generic Name NDC Status Provider Patient Instruction WARFARIN SODIUM 4 MG ORAL TABLET 1 tablet by mouth daily WARFARIN SODIUM 29103338021 Active Anahy Hall Active MELOXICAM 15 MG ORAL TABLET 1 po q day for pain with food MELOXICAM 11030939343 Active Piotr Daley DO Active PREDNISONE 10 MG ORAL TABLET 1 tablet by mouth daily PREDNISONE 06045703349 No Longer Active Emelyn Norris Active TESSALON PERLES 100 MG ORAL CAPSULE 1-2 tablet by mouth 3 times daily 04/16 BENZONATATE 53050901038 No Longer Active Emelyn Norris Active PREDNISONE 20 MG ORAL TABLET two tabs by mouth today, then one tab by mouth days two and three PREDNISONE 96287949541 No Longer Active Piotr Daley DO Active CYCLOBENZAPRINE HCL 10 MG ORAL TABLET 1 tablet by mouth three times daily as needed for muscle spasm/pain CYCLOBENZAPRINE HCL 04508392662 Active Sirisha Chen CARDIAC REHABILITATION PROGRAM DIRECTOR Active ZITHROMAX 250 MG ORAL TABLET Take two (2 ) tablets day one, then one (1) tablet a day for four (4) more days AZITHROMYCIN 27195693037 No Longer Active Piotr Daley DO Active PROAIR HFA 108 (90 BASE) MCG/ACT INHALATION AEROSOL SOLUTION 1-2 puffs four times a day as needed ALBUTEROL SULFATE 97720112669 No Longer Active Emelyn Norris Active DOXYCYCLINE HYCLATE 100 MG ORAL CAPSULE 1 cap by mouth BID x10 days DOXYCYCLINE HYCLATE 78064470857 No Longer Active Nella Harris [employer] Active PREDNISONE 20 MG ORAL TABLET 2 tabs daily for 3 days, 1 tab daily for 3 days, 1/2 tab daily for 2 days PREDNISONE 90263689138 No Longer Active Matthew Rangel MD Active TRAMADOL HCL 50 MG ORAL TABLET 1 po tid with ES Tylenol TRAMADOL HCL 52257742461 No Longer Active Matthew Rangel MD Active GABAPENTIN 300 MG ORAL CAPSULE 1 po q hs for nerve pain GABAPENTIN 25593269843 No Longer Active Matthew Rangel MD Active PREDNISONE 20 MG ORAL TABLET 2 tablets today, then 1 tablet days 2 through 4 PREDNISONE 39388914534 No Longer Active Piotr Daley DO Active AZITHROMYCIN 250 MG ORAL TABLET 2 po qd x 1 day, then 1 po qd x 4 days 07/12 AZITHROMYCIN 13568674528 No Longer Active Piotr Daley DO Active IBUPROFEN 800 MG ORAL TABLET 1 tab every 8 hours as needed 07/12 IBUPROFEN 08468623355 No Longer Active Piotr Daley DO Active LOMOTIL 2.5-0.025 MG ORAL TABLET 1 to 2 four times a day as needed for diarrhea DIPHENOXYLATE-ATROPINE 84640516259 No Longer Active Piotr W Edi DO Active WARFARIN SODIUM 4 MG ORAL TABLET 1 tab every evening WARFARIN SODIUM 69827903949 No Longer Active Piotr Daley DO Active PREDNISONE 20 MG ORAL TABLET 1 tablet twice daily for 2 days, then 1 tablet once daily for 2 days PREDNISONE 77330022210 No Longer Active Piotr Daley DO Active PROMETHAZINE HCL 25 MG ORAL TABLET 1 four times a day as needed for nausea/ vomiting PROMETHAZINE HCL 25802569218 No Longer Active Piotr Daley DO Active TUSSIONEX PENNKINETIC ER 10-8 MG/5ML ORAL SUSPENSION EXTENDED RELEASE 5ml po q12hr PRN Cough HYDROCOD POLST-CHLORPHEN POLST 91238279639 No Longer Active Piotr Daley DO Active AZITHROMYCIN 250 MG ORAL TABLET 2 po qd x 1 day, then 1 po qd x 4 days 10/13 AZITHROMYCIN 54566808441 No Longer Active Piotr Daley DO Active AZITHROMYCIN 250 MG ORAL TABLET 2 po qd x 1 day, then 1 po qd x 4 days 05/07 AZITHROMYCIN 20082885396 No Longer Active Piotr Daley DO Active LISINOPRIL-HYDROCHLOROTHIAZIDE 10-12.5 MG ORAL TABLET 1 tab by mouth daily LISINOPRIL-HYDROCHLOROTHIAZIDE 73395591819 Active Piotr Daley DO Active LISINOPRIL 10 MG ORAL TABLET 1/2-1 tab po every other day LISINOPRIL 78296523269 No Longer Active Piotr Daley DO Active VENTOLIN HFA 108 (90 Base) MCG/ACT INHALATION AEROSOL SOLUTION 2 puffs four times a day PRN cough ALBUTEROL SULFATE 93829104451 No Longer Active Piotr Daley DO Active NYSTATIN-TRIAMCINOLONE 213165-2.1 UNIT/GM-% EXTERNAL CREAM Apply to area BID NYSTATIN-TRIAMCINOLONE 58950204764 No Longer Active Alena Chavira CARDIAC REHABILITATION PROGRAM DIRECTOR Active PHISOHEX 3 % LIQD Use Directed HEXACHLOROPHENE 55317983242 No Longer Active Sandra Radisson Active AZITHROMYCIN 250 MG ORAL TABLET 2 po qd x 1 day, then 1 po qd x 4 days 10/21 AZITHROMYCIN 83684162765 No Longer Active Katrina Rinaldi MD PhD Active AZITHROMYCIN 250 MG ORAL TABLET 2 po qd x 1 day, then 1 po qd x 4 days 10/16 AZITHROMYCIN 85714505256 No Longer Active Piotr Daley DO Active AZITHROMYCIN 500 MG INTRAVENOUS SOLUTION RECONSTITUTED 1 po q day AZITHROMYCIN 17925857571 No Longer Active Piotr Daley DO Active NYSTATIN-TRIAMCINOLONE 866929-5.1 UNIT/GM-% EXTERNAL CREAM apply bid NYSTATIN-TRIAMCINOLONE 37082128073 No Longer Active Piotr Daley DO Active IBUPROFEN 800 MG ORAL TABLET 1 po q 8 hours prn pain sparinly IBUPROFEN 87498088759 No Longer Active Piotr Daley DO Active VITAMIN D3 5000 UNIT ORAL CAPSULE 1 po daily CHOLECALCIFEROL 26064881320 Active Piotr Daley DO Active IBUPROFEN 800 MG ORAL TABLET 1 po q 8 hours prn pain sparinly IBUPROFEN 800 MG ORAL TABLET 599534 IBUPROFEN Inactive NYSTATIN-TRIAMCINOLONE 916514-2.1 UNIT/GM-% EXTERNAL CREAM apply bid NYSTATIN-TRIAMCINOLONE 811311-4.1 UNIT/GM-% EXTERNAL CREAM 7636824 NYSTATIN-TRIAMCINOLONE Inactive AZITHROMYCIN 500 MG INTRAVENOUS SOLUTION RECONSTITUTED 1 po q day AZITHROMYCIN 500 MG INTRAVENOUS SOLUTION RECONSTITUTED 38232871269 AZITHROMYCIN Inactive VENTOLIN HFA 108 (90 Base) MCG/ACT INHALATION AEROSOL SOLUTION 2 puffs four times a day PRN cough VENTOLIN HFA 108 (90 Base) MCG/ ACT INHALATION AEROSOL SOLUTION ALBUTEROL SULFATE Inactive LISINOPRIL 10 MG ORAL TABLET 1/2-1 tab po every other day LISINOPRIL 10 MG ORAL TABLET 546576 LISINOPRIL Inactive TUSSIONEX PENNKINETIC ER 10-8 MG/5ML ORAL SUSPENSION EXTENDED RELEASE 5ml po q12hr PRN Cough TUSSIONEX PENNKINETIC ER 10-8 MG/5ML ORAL SUSPENSION EXTENDED RELEASE HYDROCOD POLST-CHLORPHEN POLST Inactive PROMETHAZINE HCL 25 MG ORAL TABLET 1 four times a day as needed for nausea/ vomiting PROMETHAZINE HCL 25 MG ORAL TABLET 748992 PROMETHAZINE HCL Inactive PREDNISONE 20 MG ORAL TABLET 1 tablet twice daily for 2 days, then 1 tablet once daily for 2 days PREDNISONE 20 MG ORAL TABLET 068374 PREDNISONE Inactive WARFARIN SODIUM 4 MG ORAL TABLET 1 tab every evening WARFARIN SODIUM 4 MG ORAL TABLET 340054 WARFARIN SODIUM Inactive LOMOTIL 2.5-0.025 MG ORAL TABLET 1 to 2 four times a day as needed for diarrhea LOMOTIL 2.5-0.025 MG ORAL TABLET 9227561 DIPHENOXYLATE-ATROPINE Inactive IBUPROFEN 800 MG ORAL TABLET 1 tab every 8 hours as needed 07/12 IBUPROFEN 800 MG ORAL TABLET 253784 IBUPROFEN Inactive PREDNISONE 20 MG ORAL TABLET 2 tablets today, then 1 tablet days 2 through 4 PREDNISONE 20 MG ORAL TABLET 449765 PREDNISONE Inactive GABAPENTIN 300 MG ORAL CAPSULE 1 po q hs for nerve pain GABAPENTIN 300 MG ORAL CAPSULE 958721 GABAPENTIN Inactive TRAMADOL HCL 50 MG ORAL TABLET 1 po tid with ES Tylenol TRAMADOL HCL 50 MG ORAL TABLET 016589 TRAMADOL HCL Inactive PROAIR HFA 108 (90 BASE) MCG/ACT INHALATION AEROSOL SOLUTION 1-2 puffs four times a day as needed PROAIR HFA 108 (90 BASE) MCG/ACT INHALATION AEROSOL SOLUTION ALBUTEROL SULFATE Inactive PREDNISONE 20 MG ORAL TABLET two tabs by mouth today, then one tab by mouth days two and three PREDNISONE 20 MG ORAL TABLET 427523 PREDNISONE Inactive TESSALON PERLES 100 MG ORAL CAPSULE 1-2 tablet by mouth 3 times daily 04/16 TESSALON PERLES 100 MG ORAL CAPSULE 716190 BENZONATATE Inactive PREDNISONE 10 MG ORAL TABLET 1 tablet by mouth daily PREDNISONE 10 MG ORAL TABLET 369096 PREDNISONE Inactive AZITHROMYCIN 250 MG ORAL TABLET 2 po qd x 1 day, then 1 po qd x 4 days 10/16 AZITHROMYCIN 250 MG ORAL TABLET 013841 AZITHROMYCIN Inactive AZITHROMYCIN 250 MG ORAL TABLET 2 po qd x 1 day, then 1 po qd x 4 days 10/21 AZITHROMYCIN 250 MG ORAL TABLET 410169 AZITHROMYCIN Inactive NYSTATIN-TRIAMCINOLONE 553866-6.1 UNIT/GM-% EXTERNAL CREAM Apply to area BID NYSTATIN-TRIAMCINOLONE 139151-2.1 UNIT/GM-% EXTERNAL CREAM 2076489 NYSTATIN-TRIAMCINOLONE Inactive AZITHROMYCIN 250 MG ORAL TABLET 2 po qd x 1 day, then 1 po qd x 4 days 05/07 AZITHROMYCIN 250 MG ORAL TABLET 613059 AZITHROMYCIN Inactive AZITHROMYCIN 250 MG ORAL TABLET 2 po qd x 1 day, then 1 po qd x 4 days 10/13 AZITHROMYCIN 250 MG ORAL TABLET 887622 AZITHROMYCIN Inactive AZITHROMYCIN 250 MG ORAL TABLET 2 po qd x 1 day, then 1 po qd x 4 days 07/12 AZITHROMYCIN 250 MG ORAL TABLET 569502 AZITHROMYCIN Inactive PREDNISONE 20 MG ORAL TABLET 2 tabs daily for 3 days, 1 tab daily for 3 days, 1/2 tab daily for 2 days PREDNISONE 20 MG ORAL TABLET 005131 PREDNISONE Inactive DOXYCYCLINE HYCLATE 100 MG ORAL CAPSULE 1 cap by mouth BID x10 days DOXYCYCLINE HYCLATE 100 MG ORAL CAPSULE 7717422 DOXYCYCLINE HYCLATE Inactive ZITHROMAX 250 MG ORAL TABLET Take two (2 ) tablets day one, then one (1) tablet a day for four (4) more days ZITHROMAX 250 MG ORAL TABLET 806280 AZITHROMYCIN Inactive Advance Directives Directive Description Start [...] temperature weight E&M 221 [lb_av] Weight Measured Encounters Code Encounter Date Provider Facility CPT-79356 Level 3 Est. Patient 15:59:25 MANAGER RECRUITING Piotr Daley DO [facility] CPT-67428 Level 3 Est. Patient 12:33:59 MANAGER RECRUITING Piotr Daley DO [facility] CPT-71097 Level 3 Est. Patient 15:56:17 MANAGER RECRUITING Piotr Daley DO [facility] CPT-97298 Level 3 Est. Patient 10:34:54 MANAGER RECRUITING Piotr Daley [facility] CPT-21350 Level 3 Est. Patient 17:10:19 MALACHI Harris APRN [facility] CPT-73539 Level 3 Est. Patient 10:48:17 MANAGER RECRUITING Matthew Rangel MD [facility] CPT-54449 Level 4 Est. Patient 17:15:07 MANAGER RECRUITING Piotr Daley [facility] CPT-39562 Level 3 Est. Patient 12:46:13 MANAGER RECRUITING Piotr Daley [facility] CPT-95479 Level 3 Est. Patient 15:14:31 MANAGER RECRUITING Piotr Daley [facility] CPT-34528 Level 3 Est. Patient 09:20:13 MANAGER RECRUITING Piotr Daley [facility] CPT-46639 Level 3 Est. Patient 09:49:40 CDT Piotr Daley [facility] CPT-72338 Level 3 Est. Patient 16:28:11 CDT Piotr Daley [facility] CPT-85033 Level 3 Est. Patient 12:41:58 MANAGER RECRUITING Piotr Daley [facility] CPT-76177 Level 3 Est. Patient 09:21:24 CDT Piotr Daley [facility] CPT-53533 Level 3 Est. Patient 09:21:11 CDT Piotr Daley [facility] CPT-57506 Level 3 Est. Patient 11:16:29 MANAGER RECRUITING Piotr Daley [facility] CPT-04815 Level 3 Est. Patient 18:40:19 MANAGER RECRUITING Piotr Daley [facility] CPT-45352 Level 3 Est. Patient 19:30:50 CDT Piotr Daley [facility] CPT-27143 Level 3 Est. Patient 22:06:44 CDT Katrina Rinaldi MD PhD [facility] CPT-06424 Level 3 Est. Patient 14:20:00 CDT Piotr Daley [facility] CPT-98220 Level 3 Est. Patient 14:15:22 MANAGER RECRUITING Piotr Daley [facility] CPT-38543 Level 3 Est. Patient 20:19:57 MANAGER RECRUITING Piotr Daley [facility] CPT-33928 Level 3 Est. Patient 16:44:32 CDT Piotr Daley [facility] CPT-31371 Level 3 Est. Patient 08:48:46 MANAGER RECRUITING Piotr Daley [facility] CPT-84137 Level 3 Est. Patient 21:01:21 CDT Piotr Daley [facility] Procedures Code Procedure Name Date Entry Date Standard Description CPT-26053 Sacroiliac jt < 3V - XRAY USE ONLY 16:45:19 MANAGER RECRUITING 05/09 CPT-11911 LS spine comp w obliques - XRAY USE ONLY 14:52:26 [facility] CPT-16011 Chest, 2 views 12:55:58 [facility] CPT-G0439 Subsequent Annual Wellness Exam 10:34:52 [employer] CPT-90081 BMP - LAB USE ONLY 17:19:11 [facility] CPT-88321 PT/INR - LAB USE ONLY 17:19:10 [facility] CPT-13265 Venipuncture Draw Fee 17:19:10 [facility] CPT-11481 PT/INR - LAB USE ONLY 08:12:25 [employer] CPT-83350 Venipuncture Draw Fee 08:12:24 [employer] CPT-92747 Venipuncture Draw Fee 11:31:07 [employer] CPT-28203 TPSA - LAB USE ONLY 11:31:07 [employer] CPT-36974 PT/INR - LAB USE ONLY 11:31:07 [employer]NAGER [employer] CPT-G0439 Subsequent Annual Wellness Exam 09:59:29 [employer] CPT-51956 Creatinine - LAB USE ONLY 14:37:55 [employer] CPT-38166 PT/INR - LAB USE ONLY 14:37:55 [employer] CPT-16892 Venipuncture Draw Fee 14:37:55 MANAGER [employer]UITING CPT-94650 LS spine comp w obliques - XRAY USE ONLY 12:59:25 [employer]NA[employer] CPT-20180 PT/INR - LAB USE ONLY 13:49:20 CDT CPT-19730 Venipuncture Draw Fee 13:49:19 CDT CPT-04484 PT/INR - LAB USE ONLY 15:48:49 CDT CPT-49849 Venipuncture Draw Fee 15:48:49 CDT CPT-28080 Venipuncture Draw Fee 11:31:59 CDT CPT-34661 PT/INR - LAB USE ONLY 11:31:59 CDT CPT-82635 Venipuncture Draw Fee 13:29:15 CDT CPT-01687 Thoracolumbar AP/Lat 15:19:19 [employer] CPT-G0438 Initial Annual Wellness Exam 12:18:54 [employer] CPT-30955 Knee 3V 09:57:38 CDT CPT-OV Office Visit 15:45:01 [employer]NAGER [employer]UITING CPT-57537 Abd compl w upright 17:10:25 CDT
--- OUTSIDE RECORDS SUMMARY | 2018-07-18 07:34 | XMS REPORT | Clinical Summary ---
Author Author Admin, [facility] [employer] Address Unknown Phone Unavailable Allergies, Adverse Reactions, [...] Rule out DEEP VENOUS THROMBOPHLEBITIS, LEG, RIGHT Active 01/07 Piotr Daley DO Acute venous embolism and thrombosis of unspecified deep vessels of lower extremity DEEP VENOUS THROMBOPHLEBITIS, LEG, RIGHT 453.40 Active Piotr Daley DO Acute venous embolism and thrombosis of unspecified deep vessels of lower extremity Coumadin therapy V58.61 Active Alena Ramey Long-term (current) use of anticoagulants Seborrheic keratosis 702.19 Active Piotr Katie Edi DO Other seborrheic keratosis Bronchitis-Acute 466.0 Inactive Piotr W Edi DO Acute bronchitis Leg pain, right 729.5 Active Piotr W Edi DO Pain in limb Right leg pain 729.5 Active Piotr W Edi DO Pain in limb Bronchitis-Acute 466.0 Active Piotr W Edi DO Acute bronchitis Knee pain, left 719.46 Active Piotr W Edi DO Pain in joint involving lower leg Health maintenance exam V70.0 Active Adriane Rojo LPN Routine general medical examination at a health care facility Actinic keratoses 702.0 Active Piotr iWlson Edi DO Actinic keratosis Personal history of malignant neoplasm of prostate V10.46 Active Alina Meyers [employer]ED [employer] 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 Personal history of malignant neoplasm of prostate Coronary artery disease 414.00 Active Alina Luigi [employer] Coronary atherosclerosis of unspecified type of vessel, red devil or graft Back pain, thoracic region, left 724.1 Inactive Piotr Katie Edi DO Pain in thoracic spine Thoracic back pain 724.5 Active Piotr W Edi DO Backache, unspecified Back pain lumbar 724.2 Active Piotr Daley DO Lumbago Peripheral neuropathy, lower extremity, left 356.9 Active 02/19 Piotr W Edi DO Unspecified hereditary and idiopathic peripheral neuropathy Insect bite 919.4 Active Nella Harris [employer]EL[employer] Insect bite, nonvenomous, of other, multiple, and unspecified sites, without mention of infection Pruritus 698.9 Active Nella Harris [employer]EL[employer] Unspecified pruritic disorder Wellness exam V70.0 Active Emelyn Norris Routine general medical examination at a health care facility FLANK PAIN, RIGHT ICD-789.09 Inactive Katrina Rinaldi MD PhD HEALTH MAINTENANCE EXAM ICD-V70.0 Inactive Katrina Rinaldi MD PhD BRONCHITIS-ACUTE ICD-466.0 Inactive Piotr Daley DO SCREENING, COLON CANCER ICD-V76.51 Inactive Katrina Rinaldi MD PhD BRONCHITIS-ACUTE ICD-466.0 Inactive Piotr Daley DO Bronchitis-Acute ICD-466.0 Inactive Piotr Daley DO Back pain, thoracic region, left ICD-724.1 Inactive Piotr Daley DO Medication List Medication Instructions Start Date Stop Date Generic Name NDC Status Provider Patient Instruction PROAIR HFA 108 (90 BASE) MCG/ACT INHALATION AEROSOL SOLUTION 1-2 puffs four times a day as needed ALBUTEROL SULFATE 46856886274 No Longer Active Emelyn Norris Active DOXYCYCLINE HYCLATE 100 MG ORAL CAPSULE 1 cap by mouth BID x10 days DOXYCYCLINE HYCLATE 53345278759 No Longer Active Nella Harris APRN Active WARFARIN SODIUM 5 MG ORAL TABLET 1 tablet daily M-S, 1/2 tab on Heart WARFARIN SODIUM 78812961901 Active Piotr Daley DO Active PREDNISONE 20 MG ORAL TABLET 2 tabs daily for 3 days, 1 tab daily for 3 days, 1/2 tab daily for 2 days PREDNISONE 62977439989 No Longer Active Matthew Rangel MD Active TRAMADOL HCL 50 MG ORAL TABLET 1 po tid with ES Tylenol TRAMADOL HCL 78102570782 No Longer Active Matthew Rangel MD Active GABAPENTIN 300 MG ORAL CAPSULE 1 po q hs for nerve pain GABAPENTIN 63823511554 No Longer Active Matthew Rangel MD Active PREDNISONE 20 MG ORAL TABLET 2 tablets today, then 1 tablet days 2 through 4 PREDNISONE 02073454504 No Longer Active Piotr Daley DO Active AZITHROMYCIN 250 MG ORAL TABLET 2 po qd x 1 day, then 1 po qd x 4 days 07/12 AZITHROMYCIN 82091696583 No Longer Active Piotr Daley DO Active IBUPROFEN 800 MG ORAL TABLET 1 tab every 8 hours as needed 07/12 IBUPROFEN 00290013732 No Longer Active Piotr Daley DO Active LOMOTIL 2.5-0.025 MG ORAL TABLET 1 to 2 four times a day as needed for diarrhea DIPHENOXYLATE-ATROPINE 86383283987 No Longer Active Piotr Daley DO Active WARFARIN SODIUM 4 MG ORAL TABLET 1 tab every evening WARFARIN SODIUM 95038945844 No Longer Active Piotr Daley DO Active PREDNISONE 20 MG ORAL TABLET 1 tablet twice daily for 2 days, then 1 tablet once daily for 2 days PREDNISONE 08053162768 No Longer Active Piotr Daley DO Active PROMETHAZINE HCL 25 MG ORAL TABLET 1 four times a day as needed for nausea/ vomiting PROMETHAZINE HCL 62720941736 No Longer Active Piotr Daley DO Active TUSSIONEX PENNKINETIC ER 10-8 MG/5ML ORAL SUSPENSION EXTENDED RELEASE 5ml po q12hr PRN Cough HYDROCOD POLST-CHLORPHEN POLST 93261484607 No Longer Active Piotr Daley DO Active AZITHROMYCIN 250 MG ORAL TABLET 2 po qd x 1 day, then 1 po qd x 4 days 10/13 AZITHROMYCIN 91536759837 No Longer Active Piotr Daley DO Active AZITHROMYCIN 250 MG ORAL TABLET 2 po qd x 1 day, then 1 po qd x 4 days 05/07 AZITHROMYCIN 30627967925 No Longer Active Piotr Daley DO Active LISINOPRIL-HYDROCHLOROTHIAZIDE 10-12.5 MG ORAL TABLET 1 tab by mouth daily LISINOPRIL-HYDROCHLOROTHIAZIDE 20092576946 Active Piotr Daley DO Active LISINOPRIL 10 MG ORAL TABLET 1/2-1 tab po every other day LISINOPRIL 40064395912 No Longer Active Piotr Daley DO Active VENTOLIN HFA 108 (90 Base) MCG/ACT INHALATION AEROSOL SOLUTION 2 puffs four times a day PRN cough ALBUTEROL SULFATE 74642167255 No Longer Active Piotr Daley DO Active NYSTATIN-TRIAMCINOLONE 479046-4.1 UNIT/GM-% EXTERNAL CREAM Apply to area BID NYSTATIN-TRIAMCINOLONE 17785306900 No Longer Active Alena Chavira ASSEMBLER WET WASH Active PHISOHEX 3 % LIQD Use Directed HEXACHLOROPHENE 35523591283 No Longer Active Sandra [place] Active AZITHROMYCIN 250 MG ORAL TABLET 2 po qd x 1 day, then 1 po qd x 4 days 10/21 AZITHROMYCIN 93835556156 No Longer Active Katrina Rinaldi MD PhD Active AZITHROMYCIN 250 MG ORAL TABLET 2 po qd x 1 day, then 1 po qd x 4 days 10/16 AZITHROMYCIN 46237770215 No Longer Active Piotr Daley DO Active AZITHROMYCIN 500 MG INTRAVENOUS SOLUTION RECONSTITUTED 1 po q day AZITHROMYCIN 21117377027 No Longer Active Piotr Daley DO Active NYSTATIN-TRIAMCINOLONE 978008-7.1 UNIT/GM-% EXTERNAL CREAM apply bid NYSTATIN-TRIAMCINOLONE 03161513900 No Longer Active Piotr Daley DO Active IBUPROFEN 800 MG ORAL TABLET 1 po q 8 hours prn pain sparinly IBUPROFEN 19315576928 No Longer Active Piotr Daley DO Active VITAMIN D3 5000 UNIT ORAL CAPSULE 1 po daily CHOLECALCIFEROL 96172972721 Active Piotr Daley DO Active IBUPROFEN 800 MG ORAL TABLET 1 po q 8 hours prn pain sparinly IBUPROFEN 800 MG ORAL TABLET 301556 IBUPROFEN Inactive NYSTATIN-TRIAMCINOLONE 073800-7.1 UNIT/GM-% EXTERNAL CREAM apply bid NYSTATIN-TRIAMCINOLONE 534155-3.1 UNIT/GM-% EXTERNAL CREAM 2668901 NYSTATIN-TRIAMCINOLONE Inactive AZITHROMYCIN 500 MG INTRAVENOUS SOLUTION RECONSTITUTED 1 po q day AZITHROMYCIN 500 MG INTRAVENOUS SOLUTION RECONSTITUTED 96049344639 AZITHROMYCIN Inactive VENTOLIN HFA 108 (90 Base) MCG/ACT INHALATION AEROSOL SOLUTION 2 puffs four times a day PRN cough VENTOLIN HFA 108 (90 Base) MCG/ ACT INHALATION AEROSOL SOLUTION ALBUTEROL SULFATE Inactive LISINOPRIL 10 MG ORAL TABLET 1/2-1 tab po every other day LISINOPRIL 10 MG ORAL TABLET 712415 LISINOPRIL Inactive TUSSIONEX PENNKINETIC ER 10-8 MG/5ML ORAL SUSPENSION EXTENDED RELEASE 5ml po q12hr PRN Cough TUSSIONEX PENNKINETIC ER 10-8 MG/5ML ORAL SUSPENSION EXTENDED RELEASE HYDROCOD POLST-CHLORPHEN POLST Inactive PROMETHAZINE HCL 25 MG ORAL TABLET 1 four times a day as needed for nausea/ vomiting PROMETHAZINE HCL 25 MG ORAL TABLET 790079 PROMETHAZINE HCL Inactive PREDNISONE 20 MG ORAL TABLET 1 tablet twice daily for 2 days, then 1 tablet once daily for 2 days PREDNISONE 20 MG ORAL TABLET 856946 PREDNISONE Inactive WARFARIN SODIUM 4 MG ORAL TABLET 1 tab every evening WARFARIN SODIUM 4 MG ORAL TABLET 209041 WARFARIN SODIUM Inactive LOMOTIL 2.5-0.025 MG ORAL TABLET 1 to 2 four times a day as needed for diarrhea LOMOTIL 2.5-0.025 MG ORAL TABLET 4210474 DIPHENOXYLATE-ATROPINE Inactive IBUPROFEN 800 MG ORAL TABLET 1 tab every 8 hours as needed 07/12 IBUPROFEN 800 MG ORAL TABLET 841935 IBUPROFEN Inactive PREDNISONE 20 MG ORAL TABLET 2 tablets today, then 1 tablet days 2 through 4 PREDNISONE 20 MG ORAL TABLET 188342 PREDNISONE Inactive GABAPENTIN 300 MG ORAL CAPSULE 1 po q hs for nerve pain GABAPENTIN 300 MG ORAL CAPSULE 501860 GABAPENTIN Inactive TRAMADOL HCL 50 MG ORAL TABLET 1 po tid with ES Tylenol TRAMADOL HCL 50 MG ORAL TABLET 726953 TRAMADOL HCL Inactive PROAIR HFA 108 (90 BASE) MCG/ACT INHALATION AEROSOL SOLUTION 1-2 puffs four times a day as needed PROAIR HFA 108 (90 BASE) MCG/ACT INHALATION AEROSOL SOLUTION ALBUTEROL SULFATE Inactive AZITHROMYCIN 250 MG ORAL TABLET 2 po qd x 1 day, then 1 po qd x 4 days 10/16 AZITHROMYCIN 250 MG ORAL TABLET 435414 AZITHROMYCIN Inactive AZITHROMYCIN 250 MG ORAL TABLET 2 po qd x 1 day, then 1 po qd x 4 days 10/21 AZITHROMYCIN 250 MG ORAL TABLET 796178 AZITHROMYCIN Inactive NYSTATIN-TRIAMCINOLONE 309101-0.1 UNIT/GM-% EXTERNAL CREAM Apply to area BID NYSTATIN-TRIAMCINOLONE 060065-2.1 UNIT/GM-% EXTERNAL CREAM 8601723 NYSTATIN-TRIAMCINOLONE Inactive AZITHROMYCIN 250 MG ORAL TABLET 2 po qd x 1 day, then 1 po qd x 4 days 05/07 AZITHROMYCIN 250 MG ORAL TABLET 959611 AZITHROMYCIN Inactive AZITHROMYCIN 250 MG ORAL TABLET 2 po qd x 1 day, then 1 po qd x 4 days 10/13 AZITHROMYCIN 250 MG ORAL TABLET 989901 AZITHROMYCIN Inactive AZITHROMYCIN 250 MG ORAL TABLET 2 po qd x 1 day, then 1 po qd x 4 days 07/12 AZITHROMYCIN 250 MG ORAL TABLET 921790 AZITHROMYCIN Inactive PREDNISONE 20 MG ORAL TABLET 2 tabs daily for 3 days, 1 tab daily for 3 days, 1/2 tab daily for 2 days PREDNISONE 20 MG ORAL TABLET 795920 PREDNISONE Inactive DOXYCYCLINE HYCLATE 100 MG ORAL CAPSULE 1 cap by mouth BID x10 days DOXYCYCLINE HYCLATE 100 MG ORAL CAPSULE 7557166 DOXYCYCLINE HYCLATE Inactive Advance Directives Directive Description Start Date LIVING WILL LIVING WILL Vital Signs Date Name Value Unit Range Description blood pressure, diastolic 74 mm[Hg] BP phan [...] temperature weight E&M 229.31 [lb_av] Weight Measured blood pressure, diastolic 78 mm[Hg] BP phan blood pressure, systolic 128 mm[Hg] BP sys pulse rate E&M 64 /min Heart rate temperature E&M 96.6 [degF] Body temperature weight E&M 220 [lb_av] Weight Measured blood pressure, diastolic 69 mm[Hg] BP phan blood pressure, systolic 117 mm[Hg] BP sys height E&M 71 [in_us] Bdy height pulse rate E&M 62 /min Heart rate temperature E&M 96.8 [degF] Body temperature weight E&M 223 [lb_av] Weight Measured Diagnostic Results Date Name Value Unit Range Description Lab Report: Basic Metabolic Panel - Chemistry sodium, serum 141 mmol/L 755-167 4908/01/24 potassium, serum 4.3 mmol/L 3.5-5.2 chloride, serum 103 mmol/L 98-107 carbon dioxide, venous blood 30.7 mmol/L 21.0-32.0 blood glucose 90 mg/dL 65-110 calcium, serum 8.5 mg/dL 8.5-10.1 urea nitrogen, blood 16 mg/dL 7-18 creatinine, serum 1.09 mg/dL 0.55-1.30 Lab Report: CBC-QUEST - Hematology leukocyte count, blood 5.4 THOUSAND/UL 10*3/mm3 3.8-10.8 erythrocyte (RBC) count 5.13 MILLION/UL 10*6/mm3 4.20-5.80 hemoglobin, blood 14.4 g/dL 13.2-17.1 hematocrit, blood 43.0 % 38.5-50.0 mean corpuscular volume, RBC 83.9 fL 80.0-100.0 mean corpuscular hemoglobin, RBC 28.1 pg 27.0-33.0 mean corpuscular hemoglobin concentration, RBC 33.5 G/DL % 32.0- 36.0 red blood cell distribution width 14.0 % 11.0-15.0 platelet count 172 THOUSAND/UL 10*3/mm3 310-952 6868/04/12 mean platelet volume 8.6 fL 7.5-12.5 Lab Report: Prostatic Specific Ag, Prothrombin Time - Chemistry prostate specific antigen 0.01 ng/mL 0.00-4.00 Lab Report: Prostatic Specific Ag, Prothrombin Time - Coagulation prothrombin time (patient) 25.9 SECS s 11.1-13.4 international normalized ratio (INR) 3.7 1.0-3.5 Lab Report: Prothrombin Time - Coagulation prothrombin time (patient) 27.8 SECS s 11.1-13.4 international normalized ratio (INR) 4.2 1.0-3.5 international normalized ratio (INR) 3.3 1.0-3.5 prothrombin time (patient) 24.3 SECS s 11.1-13.4 Lab Report: Prothrombin Time Hemochron - Coagulation prothrombin time (patient) 33.0 SECS s 18.9-24.9 Encounters Code Encounter Date Provider Facility CPT-58747 Level 3 Est. Patient 10:34:54 [employer]BACCO CLASSER Piotr Wilson Edi [facility] CPT-49439 Level 3 Est. Patient 17:10:19 CDT Nella Harris APRN [facility] CPT-24147 Level 3 Est. Patient 10:48:17 TOBACCO CLASSER Matthew Rangel MD [facility] CPT-64418 Level 4 Est. Patient 17:15:07 TOBACCO CLASSER Piotr Wilson Edi [facility] CPT-28043 Level 3 Est. Patient 12:46:13 TOBACCO CLASSER Piotr Wilson Edi [facility] CPT-74861 Level 3 Est. Patient 15:14:31 TOBACCO CLASSER Piotr Wilson Edi [facility] CPT-66786 Level 3 Est. Patient 09:20:13 TOBACCO CLASSER Piotr Wilson Edi [facility] CPT-08690 Level 3 Est. Patient 09:49:40 CDT Piotr Daley [facility] CPT-11658 Level 3 Est. Patient 16:28:11 CDT Piotr Daley [facility] CPT-08760 Level 3 Est. Patient 12:41:58 TOBACCO CLASSER Piotr Daley [facility] CPT-45424 Level 3 Est. Patient 09:21:24 CDT Piotr Wilson Edi [facility] CPT-97626 Level 3 Est. Patient 09:21:11 CDT Piotr Katie Daley [facility] CPT-75604 Level 3 Est. Patient 11:16:29 TOBACCO CLASSER Piotr Daley [facility] CPT-02886 Level 3 Est. Patient 18:40:19 TOBACCO CLASSER Piotr Daley [facility] CPT-75291 Level 3 Est. Patient 19:30:50 CDT Piotr Daley [facility] CPT-73346 Level 3 Est. Patient 22:06:44 CDT Katrina Rinaldi MD PhD [facility] CPT-60945 Level 3 Est. Patient 14:20:00 CDT Piotr Daley [facility] CPT-31781 Level 3 Est. Patient 14:15:22 TOBACCO CLASSER Piotr Daley [facility] CPT-59099 Level 3 Est. Patient 20:19:57 TOBACCO CLASSER Piotr Daley [facility] CPT-55628 Level 3 Est. Patient 16:44:32 CDT Piotr Daley [facility] CPT-88448 Level 3 Est. Patient 08:48:46 TOBACCO CLASSER Piotr Daley [facility] CPT-40233 Level 3 Est. Patient 21:01:21 CDT Piotr Daley [facility] Procedures Code Procedure Name Date Entry Date Standard Description CPT-G0439 Subsequent Annual Wellness Exam 10:34:52 [facility] CPT-88036 BMP - LAB USE ONLY 17:19:11 [employer]BAC[employer] CLASS[employer] CPT-05859 PT/INR - LAB USE ONLY 17:19:10 [facility] CPT-39104 Venipuncture Draw Fee 17:19:10 [employer] CPT-87670 PT/INR - LAB USE ONLY 08:12:25 [facility] CPT-42331 Venipuncture Draw Fee 08:12:24 [employer] CPT-17854 Venipuncture Draw Fee 11:31:07 [employer] CPT-52583 TPSA - LAB USE ONLY 11:31:07 [employer]BAC[employer]ER CPT-58582 PT/INR - LAB USE ONLY 11:31:07 [facility] CPT-G0439 Subsequent Annual Wellness Exam 09:59:29 [employer] CPT-83828 Creatinine - LAB USE ONLY 14:37:55 [employer] CPT-78507 PT/INR - LAB USE ONLY 14:37:55 [employer] CPT-48230 Venipuncture Draw Fee 14:37:55 [employer] CPT-28285 LS spine comp w obliques - XRAY USE ONLY 12:59:25 [employer] CPT-84912 PT/INR - LAB USE ONLY 13:49:20 CDT CPT-19972 Venipuncture Draw Fee 13:49:19 CDT CPT-31224 PT/INR - LAB USE ONLY 15:48:49 CDT CPT-33168 Venipuncture Draw Fee 15:48:49 CDT CPT-32923 Venipuncture Draw Fee 11:31:59 CDT CPT-63100 PT/INR - LAB USE ONLY 11:31:59 CDT CPT-15794 Venipuncture Draw Fee 13:29:15 CDT CPT-89389 Thoracolumbar AP/Lat 15:19:19 [employer] CPT-G0438 Initial Annual Wellness Exam 12:18:54 [employer] CPT-26482 Knee 3V 09:57:38 CDT CPT-OV Office Visit 15:45:01 [employer]BAC[employer] CLASS[employer] CPT-02028 Abd compl w upright 17:10:25 CDT
--- OUTSIDE RECORDS SUMMARY | 2018-07-18 07:34 | XMS REPORT | Clinical Summary ---
Author Author Admin, YONG Organization [facility] Address Unknown Phone Unavailable Allergies, Adverse Reactions, Alerts Allergy Name Reaction Description Start Date Severity Status Provider PENICILLINS Critical Active Piotr Daley DO Conditions or Problems Problem Name Problem Code [...] anticoagulants Seborrheic keratosis 702.19 Active Piotr Katie Daley DO Other seborrheic keratosis Bronchitis-Acute 466.0 Inactive Piotr Katie Daley DO Acute bronchitis Leg pain, right 729.5 Active Piotr Daley DO Pain in limb Right leg pain 729.5 Active Piotr Katie Daley DO Pain in limb Bronchitis-Acute 466.0 Active Piotr Katie Daley DO Acute bronchitis Knee pain, left 719.46 Active Piotr Katie Daley DO Pain in joint involving lower leg FLANK PAIN, RIGHT ICD-789.09 Inactive Katrina Rinaldi MD PhD HEALTH MAINTENANCE EXAM ICD-V70.0 Inactive Katrina Rinaldi MD PhD BRONCHITIS-ACUTE ICD-466.0 Inactive Piotr Katie Edi DO SCREENING, COLON CANCER ICD-V76.51 Inactive Katrina Rinaldi MD PhD BRONCHITIS-ACUTE ICD-466.0 Inactive Piotr Daley DO Bronchitis-Acute ICD-466.0 Inactive Piotr Daley DO Medication List Medication Instructions Start Date Stop Date Generic Name NDC Status Provider Patient Instruction PREDNISONE 20 MG TAB 2 tablets today, then 1 tablet days 2 through 4 PREDNISONE 28247721880 No Longer Active Piotr Daley DO Active AZITHROMYCIN 250 MG TABS 2 po qd x 1 day, then 1 po qd x 4 days AZITHROMYCIN 55227908823 No Longer Active Piotr Daley DO Active IBUPROFEN 800 MG TABS 1 tab every 8 hours as needed IBUPROFEN 22208875876 No Longer Active Piotr Daley DO Active LOMOTIL 2.5-0.025 MG TAB 1 to 2 four times a day as needed for diarrhea 10/13 DIPHENOXYLATE-ATROPINE 03453137277 No Longer Active Piotr Daley DO Active WARFARIN SODIUM 5 MG TABS 1 tablet daily except for Saturday and 04/09 tablet. WARFARIN SODIUM 19128378301 Active Piotr Daley DO Active WARFARIN SODIUM 4 MG TABS 1 tab every evening WARFARIN SODIUM 10868978347 No Longer Active Piotr Daley DO Active PREDNISONE 20 MG TAB 1 tablet twice daily for 2 days, then 1 tablet once daily for 2 days PREDNISONE 38039422519 No Longer Active Piotr Daley DO Active PROMETHAZINE HCL 25 MG TABS 1 four times a day as needed for nausea/vomiting PROMETHAZINE HCL 45394672954 No Longer Active Piotr Daley DO Active TUSSIONEX PENNKINETIC ER 10-8 MG/5ML LQCR 5ml po q12hr PRN Cough HYDROCOD POLST-CHLORPHEN POLST 66002756016 No Longer Active Piotr Daley DO Active AZITHROMYCIN 250 MG TABS 2 po qd x 1 day, then 1 po qd x 4 days AZITHROMYCIN 68497289873 No Longer Active Piotr Daley DO Active AZITHROMYCIN 250 MG TABS 2 po qd x 1 day, then 1 po qd x 4 days AZITHROMYCIN 24439541428 No Longer Active Piotr Daley DO Active LISINOPRIL-HYDROCHLOROTHIAZIDE 10-12.5 MG TABS 1 tab by mouth daily LISINOPRIL-HYDROCHLOROTHIAZIDE 91163716454 Active Piotr Daley DO Active LISINOPRIL 10 MG TABS 1/2-1 tab po every other day LISINOPRIL 80750210610 No Longer Active Piotr Daley DO Active VENTOLIN HFA 108 (90 BASE) MCG/ACT AERS 2 puffs four times a day PRN cough ALBUTEROL SULFATE 90357683687 No Longer Active Piotr Daley DO Active NYSTATIN-TRIAMCINOLONE 257471-9.1 UNIT/GM-% CREA Apply to area BID NYSTATIN-TRIAMCINOLONE 85161273046 No Longer Active Alena Chavira KAIAWHINA Active PHISOHEX 3 % LIQD Use Directed HEXACHLOROPHENE 42602761599 No Longer Active Sandra [place] Active AZITHROMYCIN 250 MG TABS 2 po qd x 1 day, then 1 po qd x 4 days AZITHROMYCIN 46630520204 No Longer Active Katrina Rinaldi MD PhD Active AZITHROMYCIN 250 MG TABS 2 po qd x 1 day, then 1 po qd x 4 days AZITHROMYCIN 99127225314 No Longer Active Piotr Daley DO Active AZITHROMYCIN 500 MG SOLR 1 po q day AZITHROMYCIN 52193220659 No Longer Active Piotr Daley DO Active NYSTATIN-TRIAMCINOLONE 183171-1.1 UNIT/GM-% CREA apply bid 08/19 NYSTATIN-TRIAMCINOLONE 98868387430 No Longer Active Piotr Daley DO Active IBUPROFEN 800 MG TABS 1 po q 8 hours prn pain sparinly IBUPROFEN 02145690928 No Longer Active Piotr Daley DO Active VITAMIN D3 5000 UNIT CAPS 1 po daily CHOLECALCIFEROL 46345049529 Active Piotr Daley DO Active IBUPROFEN 800 MG TABS 1 po q 8 hours prn pain sparinly IBUPROFEN 800 MG TABS 951700 IBUPROFEN Inactive NYSTATIN-TRIAMCINOLONE 916092-5.1 UNIT/GM-% CREA apply bid 08/19 NYSTATIN-TRIAMCINOLONE 149288-9.1 UNIT/GM-% CREA 1798853 NYSTATIN- TRIAMCINOLONE Inactive AZITHROMYCIN 500 MG SOLR 1 po q day AZITHROMYCIN 500 MG SOLR 214235 AZITHROMYCIN Inactive VENTOLIN HFA 108 (90 BASE) MCG/ACT AERS 2 puffs four times a day PRN cough VENTOLIN HFA 108 (90 BASE) MCG/ACT AERS ALBUTEROL SULFATE Inactive LISINOPRIL 10 MG TABS 1/2-1 tab po every other day LISINOPRIL 10 MG TABS 271606 LISINOPRIL Inactive TUSSIONEX PENNKINETIC ER 10-8 MG/5ML LQCR 5ml po q12hr PRN Cough TUSSIONEX PENNKINETIC ER 10-8 MG/5ML LQCR HYDROCOD POLST- CHLORPHEN POLST Inactive PROMETHAZINE HCL 25 MG TABS 1 four times a day as needed for nausea/vomiting PROMETHAZINE HCL 25 MG TABS 071178 PROMETHAZINE HCL Inactive PREDNISONE 20 MG TAB 1 tablet twice daily for 2 days, then 1 tablet once daily for 2 days PREDNISONE 20 MG TAB 062590 PREDNISONE Inactive WARFARIN SODIUM 4 MG TABS 1 tab every evening WARFARIN SODIUM 4 MG TABS 092080 WARFARIN SODIUM Inactive LOMOTIL 2.5-0.025 MG TAB 1 to 2 four times a day as needed for diarrhea 10/13 LOMOTIL 2.5-0.025 MG TAB 2752808 DIPHENOXYLATE-ATROPINE Inactive IBUPROFEN 800 MG TABS 1 tab every 8 hours as needed IBUPROFEN 800 MG TABS 372247 IBUPROFEN Inactive PREDNISONE 20 MG TAB 2 tablets today, then 1 tablet days 2 through 4 PREDNISONE 20 MG TAB 559986 PREDNISONE Inactive AZITHROMYCIN 250 MG TABS 2 po qd x 1 day, then 1 po qd x 4 days AZITHROMYCIN 250 MG TABS 4609607 AZITHROMYCIN Inactive AZITHROMYCIN 250 MG TABS 2 po qd x 1 day, then 1 po qd x 4 days AZITHROMYCIN 250 MG TABS 4453705 AZITHROMYCIN Inactive NYSTATIN-TRIAMCINOLONE 473983-0.1 UNIT/GM-% CREA Apply to area BID NYSTATIN-TRIAMCINOLONE 128106-6.1 UNIT/GM-% CREA 3728728 NYSTATIN-TRIAMCINOLONE Inactive AZITHROMYCIN 250 MG TABS 2 po qd x 1 day, then 1 po qd x 4 days AZITHROMYCIN 250 MG TABS 5670587 AZITHROMYCIN Inactive AZITHROMYCIN 250 MG TABS 2 po qd x 1 day, then 1 po qd x 4 days AZITHROMYCIN 250 MG TABS 6308548 AZITHROMYCIN Inactive AZITHROMYCIN 250 MG TABS 2 po qd x 1 day, then 1 po qd x 4 days AZITHROMYCIN 250 MG TABS 8169240 AZITHROMYCIN Inactive Vital Signs Date Name Value Unit Range Description blood pressure, diastolic - 8462-4 78 mm[Hg] BP phan blood pressure, systolic - 8480-6 118 mm[Hg] BP sys pulse rate E&M - 8867-4 69 /min Heart rate temperature E&M 98.1 [degF] Body temperature weight E&M - 3141-9 225.0 [lb_av] Weight Measured blood pressure, diastolic - 8462-4 74 mm[Hg] BP phan blood pressure, systolic - 8480-6 105 mm[Hg] BP sys pulse rate E&M - 8867-4 73 /min Heart rate temperature E&M 97.6 [degF] Body temperature weight E&M - 3141-9 226.0 [lb_av] Weight Measured blood pressure, diastolic - 8462-4 68 mm[Hg] BP phan blood pressure, systolic - 8480-6 100 mm[Hg] BP sys pulse rate E&M - 8867-4 73 /min Heart rate temperature E&M 97.1 [degF] Body temperature weight E&M - 3141-9 222.8 [lb_av] Weight Measured blood pressure, diastolic - 8462-4 69 mm[Hg] BP phan blood pressure, systolic - 8480-6 121 mm[Hg] BP sys pulse rate E&M - 8867-4 74 /min Heart rate temperature E&M 98.2 [degF] Body temperature weight E&M - 3141-9 230 [lb_av] Weight Measured Diagnostic Results Date Name Value Unit Range Description Append: Anticoagulation Management - Coagulation international normalized ratio (INR) 2.5 international normalized ratio (INR) 2.1 Lab Report: Prothrombin Time - Coagulation prothrombin time (patient) 18.8 SECS s 11.1-13.4 international normalized ratio (INR) 2.3 1.0-3.5 prothrombin time (patient) 17.5 SECS s 11.1-13.4 international normalized ratio (INR) 2.1 1.0-3.5 prothrombin time (patient) 17.5 SECS s 11.1-13.4 international normalized ratio (INR) 2.1 1.0-3.5 prothrombin time (patient) 16.0 SECS s 11.1-13.4 international normalized ratio (INR) 1.7 1.0-3.5 prothrombin time (patient) 14.5 SECS s 11.1-13.4 international normalized ratio (INR) 1.4 1.0-3.5 prothrombin time (patient) 15.4 SECS s 11.1-13.4 international normalized ratio (INR) 1.6 1.0-3.5 prothrombin time (patient) 19.3 SECS s 11.1-13.4 international normalized ratio (INR) 2.4 1.0-3.5 prothrombin time (patient) 23.4 SECS s 11.1-13.4 international normalized ratio (INR) 3.5 1.0-3.5 prothrombin time (patient) 21.0 SECS s 11.1-13.4 international normalized ratio (INR) 2.8 1.0-3.5 prothrombin time (patient) 17.7 SECS s 11.1-13.4 international normalized ratio (INR) 2.0 1.0-3.5 prothrombin time (patient) 19.5 SECS s 11.1-13.4 international normalized ratio (INR) 2.5 1.0-3.5 Lab Report: Prothrombin Time, Basic Metabolic Panel, CBC, Prostatic Spec ... - Chemistry sodium, serum 142 mmol/L 047-653 7471/12/01 potassium, serum 4.7 mmol/L 3.5-5.2 chloride, serum 102 mmol/L 98-107 carbon dioxide, venous blood 31.8 mmol/L 21.0-32.0 blood glucose 101 mg/dL 65-110 calcium, serum 9.7 mg/dL 8.5-10.1 urea nitrogen, blood 14 mg/dL 7-18 creatinine, serum 1.10 mg/dL 0.60-1.30 prostate specific antigen 0.08 ng/mL 0.00-4.00 Lab Report: Prothrombin Time, Basic Metabolic Panel, CBC, Prostatic Spec ... - Coagulation prothrombin time (patient) 22.0 SECS s 11.1-13.4 international normalized ratio (INR) 3.1 1.0-3.5 Lab Report: Prothrombin Time, Basic Metabolic Panel, CBC, Prostatic Spec ... - Hematology leukocyte count, blood 6.8 10^3/MM^3 10*3/mm3 4.6-10.2 erythrocyte (RBC) count 5.89 10^6/MM^3 10*6/mm3 4.69-6.13 hemoglobin, blood 16.8 g/dL 13.5-17.5 hematocrit, blood 50.7 % 41.0-53.0 mean corpuscular volume, RBC 86 fL 80-97 mean corpuscular hemoglobin, RBC 28.5 pg 27.0-31.2 mean corpuscular hemoglobin concentration, RBC 33.1 G/DL % 31.8- 35.4 red blood cell distribution width 14.3 % 11.6-14.8 platelet count 205 10^3/MM^3 10*3/mm3 142-424 Encounters Code Encounter Date Provider Facility CPT-92506 Level 3 Est. Patient 09:49:40 CDT Piotr Daley [facility] CPT-88741 Level 3 Est. Patient 16:28:11 CDT Piotr Daley [facility] CPT-69271 Level 3 Est. Patient 12:41:58 [employer]IC [employer]OL [employer]PER[employer] Piotr Katie Daley [facility] CPT-63190 Level 3 Est. Patient 09:21:24 CDT Piotr Daley [facility] CPT-51107 Level 3 Est. Patient 09:21:11 CDT Piotr Daley [facility] CPT-48435 Level 3 Est. 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 Patient 19:30:50 CDT Piotr Daley [facility] CPT-73343 Level 3 Est. Patient 22:06:44 CDT Katrina Rinaldi MD [facility] CPT-82145 Level 3 Est. Patient 14:20:00 CDT Piotr Daley [facility] CPT-82617 Level 3 Est. Patient 14:15:22 [employer]FFIC CONTROL SUPER[employer]OR Piotr Daley [facility] CPT-53468 Level 3 Est. Patient 20:19:57 [employer]FFIC CONTROL SUPERVISOR Piotr Daley [facility] CPT-15106 Level 3 Est. Patient 16:44:32 CDT Piotr Daley [facility] CPT-48291 Level 3 Est. Patient 08:48:46 [employer]FFIC [employer]OL SUPER[employer]OR Piotr Daley [facility] CPT-99803 Level 3 Est. Patient 21:01:21 CDT Piotr Daley [facility] Procedures Code Procedure Name Date Entry Date Standard Description CPT-14286 Knee 3V 09:57:38 CDT CPT-OV Office Visit 15:45:01 [employer] CPT-42367 Abd compl w upright 17:10:25 CDT
--- OUTSIDE RECORDS SUMMARY | 2018-07-18 07:35 | XMS REPORT | Clinical Summary ---
Author Author Admin, E Organization [employer] Address Unknown Phone Unavailable Allergies, Adverse Reactions, [...] of anticoagulants Seborrheic keratosis 702.19 Active Piotr Daley DO Other seborrheic keratosis Bronchitis-Acute 466.0 Inactive Piotr Katie Edi DO Acute bronchitis Leg pain, right 729.5 Active Piotr Katie Edi DO Pain in limb Right leg pain 729.5 Active Piotr Katie Edi DO Pain in limb Bronchitis-Acute 466.0 Active Piotr Katie Edi DO Acute bronchitis Knee pain, left 719.46 Active Piotr Katie Daley DO Pain in joint involving lower leg Health maintenance exam V70.0 Active Adriane Rooj LPN Routine general medical examination at a health care facility Actinic keratoses 702.0 Active Piotr Katie Edi DO Actinic keratosis Personal history of malignant neoplasm of prostate V10.46 Active Alina Meyers APRN Personal history of malignant neoplasm of prostate Coronary artery disease 414.00 Active Alina Meyers APRN Coronary atherosclerosis of unspecified type of vessel, [place] or graft Back pain, thoracic region, left 724.1 Inactive Piotr Katie Edi DO Pain in thoracic spine Thoracic back pain 724.5 Active Poitr Katie Edi DO Backache, unspecified Back pain lumbar 724.2 Active Piotr Katie Eid DO Lumbago Peripheral neuropathy, lower extremity, left 356.9 Active 02/19 Piotr Katie Edi DO Unspecified hereditary and idiopathic peripheral neuropathy FLANK PAIN, RIGHT ICD-789.09 Inactive Katrina Rinaldi [...] Instruction PROAIR HFA 108 (90 BASE) MCG/ACT AERS 1-2 puffs four times a day as needed ALBUTEROL SULFATE 10644510997 Active Matthew Rangel MD Active PREDNISONE 20 MG TAB 2 tabs daily for 3 days, 1 tab daily for 3 days, 1/2 tab daily for 2 days PREDNISONE 03579262725 No Longer Active Matthew Rangel MD Active TRAMADOL HCL 50 MG TABS 1 po tid with ES Tylenol TRAMADOL HCL 28190686960 No Longer Active Matthew Rangel MD Active GABAPENTIN 300 MG CAPS 1 po q hs for nerve pain GABAPENTIN 56756173142 No Longer Active Matthew Rangel MD Active WARFARIN SODIUM 5 MG TABS 1 tablet daily WARFARIN SODIUM 60584249433 Active Piotr Daley DO Active PREDNISONE 20 MG TAB 2 tablets today, then 1 tablet days 2 through 4 PREDNISONE 59250258768 No Longer Active Piotr Daley DO Active AZITHROMYCIN 250 MG TABS 2 po qd x 1 day, then 1 po qd x 4 days AZITHROMYCIN 91459469391 No Longer Active Piotr Daley DO Active IBUPROFEN 800 MG TABS 1 tab every 8 hours as needed IBUPROFEN 47488429993 No Longer Active Piotr Daley DO Active LOMOTIL 2.5-0.025 MG TAB 1 to 2 four times a day as needed for diarrhea 10/13 DIPHENOXYLATE-ATROPINE 30387067844 No Longer Active Piotr Daley DO Active WARFARIN SODIUM 4 MG TABS 1 tab every evening WARFARIN SODIUM 12490394210 No Longer Active Piotr Daley DO Active PREDNISONE 20 MG TAB 1 tablet twice daily for 2 days, then 1 tablet once daily for 2 days PREDNISONE 08390444947 No Longer Active Piotr Daley DO Active PROMETHAZINE HCL 25 MG TABS 1 four times a day as needed for nausea/vomiting PROMETHAZINE HCL 36304487357 No Longer Active Piotr Daley DO Active TUSSIONEX PENNKINETIC ER 10-8 MG/5ML LQCR 5ml po q12hr PRN Cough HYDROCOD POLST-CHLORPHEN POLST 37008736601 No Longer Active Piotr Daley DO Active AZITHROMYCIN 250 MG TABS 2 po qd x 1 day, then 1 po qd x 4 days AZITHROMYCIN 13101073255 No Longer Active Piotr Daley DO Active AZITHROMYCIN 250 MG TABS 2 po qd x 1 day, then 1 po qd x 4 days AZITHROMYCIN 47555310305 No Longer Active Piotr Daley DO Active LISINOPRIL-HYDROCHLOROTHIAZIDE 10-12.5 MG TABS 1 tab by mouth daily LISINOPRIL-HYDROCHLOROTHIAZIDE 64639539658 Active Simi Meyers Active LISINOPRIL 10 MG TABS 1/2-1 tab po every other day LISINOPRIL 01399116252 No Longer Active Piotr Daley DO Active VENTOLIN HFA 108 (90 BASE) MCG/ACT AERS 2 puffs four times a day PRN cough ALBUTEROL SULFATE 09838900437 No Longer Active Piotr Daley DO Active NYSTATIN-TRIAMCINOLONE 698421-5.1 UNIT/GM-% CREA Apply to area BID NYSTATIN-TRIAMCINOLONE 58615037217 No Longer Active Alena Chavira FUSE ASSEMBLER Active PHISOHEX 3 % LIQD Use Directed HEXACHLOROPHENE 65929640831 No Longer Active Sandra Dentarger Active AZITHROMYCIN 250 MG TABS 2 po qd x 1 day, then 1 po qd x 4 days AZITHROMYCIN 49502398735 No Longer Active Katrina Rinaldi MD PhD Active AZITHROMYCIN 250 MG TABS 2 po qd x 1 day, then 1 po qd x 4 days AZITHROMYCIN 84094181575 No Longer Active Piotr Daley DO Active AZITHROMYCIN 500 MG SOLR 1 po q day AZITHROMYCIN 09367603499 No Longer Active Piotr Daley DO Active NYSTATIN-TRIAMCINOLONE 668319-3.1 UNIT/GM-% CREA apply bid 08/19 NYSTATIN-TRIAMCINOLONE 89812347634 No Longer Active Piotr Daley DO Active IBUPROFEN 800 MG TABS 1 po q 8 hours prn pain sparinly IBUPROFEN 93771265530 No Longer Active Piotr Daley DO Active VITAMIN D3 5000 UNIT CAPS 1 po daily CHOLECALCIFEROL 32208668927 Active Piotr Daley DO Active IBUPROFEN 800 MG TABS 1 po q 8 hours prn pain sparinly IBUPROFEN 800 MG TABS 268218 IBUPROFEN Inactive NYSTATIN-TRIAMCINOLONE 125169-6.1 UNIT/GM-% CREA apply bid 08/19 NYSTATIN-TRIAMCINOLONE 664904-4.1 UNIT/GM-% CREA 9781538 NYSTATIN- TRIAMCINOLONE Inactive AZITHROMYCIN 500 MG SOLR 1 po q day AZITHROMYCIN 500 MG SOLR 36361614946 AZITHROMYCIN Inactive VENTOLIN HFA 108 (90 BASE) MCG/ACT AERS 2 puffs four times a day PRN cough VENTOLIN HFA 108 (90 BASE) MCG/ACT AERS ALBUTEROL SULFATE Inactive LISINOPRIL 10 MG TABS 1/2-1 tab po every other day LISINOPRIL 10 MG TABS 588198 LISINOPRIL Inactive TUSSIONEX PENNKINETIC ER 10-8 MG/5ML LQCR 5ml po q12hr PRN Cough TUSSIONEX PENNKINETIC ER 10-8 MG/5ML LQCR HYDROCOD POLST- CH[place]OR[place]EN POLST Inactive PROMETHAZINE HCL 25 MG TABS 1 four times a day as needed for nausea/vomiting PROMETHAZINE HCL 25 MG TABS 389990 PROMETHAZINE HCL Inactive PREDNISONE 20 MG TAB 1 tablet twice daily for 2 days, then 1 tablet once daily for 2 days PREDNISONE 20 MG TAB 589822 PREDNISONE Inactive WARFARIN SODIUM 4 MG TABS 1 tab every evening WARFARIN SODIUM 4 MG TABS 811244 WARFARIN SODIUM Inactive LOMOTIL 2.5-0.025 MG TAB 1 to 2 four times a day as needed for diarrhea 10/13 LOMOTIL 2.5-0.025 MG TAB 4587163 DIPHENOXYLATE-ATROPINE Inactive IBUPROFEN 800 MG TABS 1 tab every 8 hours as needed IBUPROFEN 800 MG TABS 999757 IBUPROFEN Inactive PREDNISONE 20 MG TAB 2 tablets today, then 1 tablet days 2 through 4 PREDNISONE 20 MG TAB 111724 PREDNISONE Inactive GABAPENTIN 300 MG CAPS 1 po q hs for nerve pain GABAPENTIN 300 MG CAPS 012369 GABAPENTIN Inactive TRAMADOL HCL 50 MG TABS 1 po tid with ES Tylenol TRAMADOL HCL 50 MG TABS 732267 TRAMADOL HCL Inactive AZITHROMYCIN 250 MG TABS 2 po qd x 1 day, then 1 po qd x 4 days AZITHROMYCIN 250 MG TABS 6015612 AZITHROMYCIN Inactive AZITHROMYCIN 250 MG TABS 2 po qd x 1 day, then 1 po qd x 4 days AZITHROMYCIN 250 MG TABS 5146966 AZITHROMYCIN Inactive NYSTATIN-TRIAMCINOLONE 855580-5.1 UNIT/GM-% CREA Apply to area BID NYSTATIN-TRIAMCINOLONE 669795-3.1 UNIT/GM-% CREA 9182920 NYSTATIN-TRIAMCINOLONE Inactive AZITHROMYCIN 250 MG TABS 2 po qd x 1 day, then 1 po qd x 4 days AZITHROMYCIN 250 MG TABS 9680668 AZITHROMYCIN Inactive AZITHROMYCIN 250 MG TABS 2 po qd x 1 day, then 1 po qd x 4 days AZITHROMYCIN 250 MG TABS 6095123 AZITHROMYCIN Inactive AZITHROMYCIN 250 MG TABS 2 po qd x 1 day, then 1 po qd x 4 days AZITHROMYCIN 250 MG TABS 9655911 AZITHROMYCIN Inactive PREDNISONE 20 MG TAB 2 tabs daily for 3 days, 1 tab daily for 3 days, 1/2 tab daily for 2 days PREDNISONE 20 MG TAB 937055 PREDNISONE Inactive Advance Directives Directive Description Start Date LIVING WILL LIVING WILL Vital Signs Date Name Value Unit Range Description blood pressure, diastolic - 8462-4 78 mm[Hg] BP phan blood pressure, systolic - 8480-6 128 mm[Hg] BP sys pulse rate E&M - 8867-4 64 /min Heart rate temperature E&M 96.6 [degF] Body temperature weight E&M - 3141-9 220 [lb_av] Weight Measured blood pressure, diastolic - 8462-4 69 mm[Hg] BP phan blood pressure, systolic - 8480-6 117 mm[Hg] BP sys height E&M - 8302-2 71 [in_us] Bdy height pulse rate E&M - 8867-4 62 /min Heart rate temperature E&M 96.8 [degF] Body temperature weight E&M - 3141-9 223 [lb_av] Weight Measured blood pressure, diastolic - 8462-4 73 mm[Hg] BP phan blood pressure, systolic - 8480-6 134 mm[Hg] BP sys pulse rate E&M - 8867-4 60 /min Heart rate temperature E&M 96.8 [degF] Body temperature weight E&M - 3141-9 224 [lb_av] Weight Measured Diagnostic Results Date Name Value Unit Range Description Lab Report: Basic Metabolic Panel - Chemistry sodium, serum 141 mmol/L 038-668 3495/01/24 potassium, serum 4.3 mmol/L 3.5-5.2 chloride, serum 103 mmol/L 98-107 carbon dioxide, venous blood 30.7 mmol/L 21.0-32.0 blood glucose 90 mg/dL 65-110 calcium, serum 8.5 mg/dL 8.5-10.1 urea nitrogen, blood 16 mg/dL 7-18 creatinine, serum 1.09 mg/dL 0.55-1.30 Lab Report: Comp. Metabolic Panel - Chemistry sodium, serum 141 mmol/L 113-980 9314/06/28 carbon dioxide, venous blood 31.0 mmol/L 21.0-32.0 potassium, serum 4.2 mmol/L 3.5-5.2 chloride, serum 104 mmol/L 98-107 blood glucose 94 mg/dL 65-110 urea nitrogen, blood 15 mg/dL 7-18 creatinine, serum 1.08 mg/dL 0.55-1.30 alanine aminotransferase (SGPT), serum 25 U/L 12-78 aspartate aminotransferase (SGOT), serum 26 U/L 15-37 calcium, serum 8.7 mg/dL 8.5-10.1 bilirubin, serum, total 0.50 mg/dL 0.00-1.00 Lab Report: Creatinine - Chemistry creatinine, serum 1.07 mg/dL 0.55-1.30 Lab Report: MICROALB/CREAT W/RATIO, Prothrombin Time - Chemistry albumin/creatinine ratio, urine < 30 mg/g mg/g{creat} 0-29 Lab Report: MICROALB/CREAT W/RATIO, Prothrombin Time - Coagulation prothrombin time (patient) 18.4 SECS s 11.1-13.4 international normalized ratio (INR) 2.1 1.0-3.5 Lab Report: MICROALB/CREAT W/RATIO, Prothrombin Time - Lab microalbumin, urine 10 0-19 Lab Report: Prostatic Specific Ag, Prothrombin Time - Chemistry prostate specific antigen 0.01 ng/mL 0.00-4.00 Lab Report: Prostatic Specific Ag, Prothrombin Time - Coagulation prothrombin time (patient) 25.9 SECS s 11.1-13.4 international normalized ratio (INR) 3.7 1.0-3.5 Lab Report: Prothrombin Time - Coagulation prothrombin time (patient) 24.3 SECS s 11.1-13.4 international normalized ratio (INR) 3.3 1.0-3.5 prothrombin time (patient) 27.8 SECS s 11.1-13.4 international normalized ratio (INR) 4.2 1.0-3.5 prothrombin time (patient) 23.1 SECS s 11.1-13.4 international normalized ratio (INR) 3.0 1.0-3.5 prothrombin time (patient) 18.3 SECS s 11.1-13.4 international normalized ratio (INR) 2.3 1.0-3.5 prothrombin time (patient) 18.1 SECS s 11.1-13.4 international normalized ratio (INR) 2.2 1.0-3.5 prothrombin time (patient) 15.4 SECS s 11.1-13.4 international normalized ratio (INR) 1.7 1.0-3.5 prothrombin time (patient) 22.8 SECS s 11.1-13.4 international normalized ratio (INR) 3.0 1.0-3.5 prothrombin time (patient) 20.8 SECS s 11.1-13.4 international normalized ratio (INR) 2.5 1.0-3.5 prothrombin time (patient) 19.8 SECS s 11.1-13.4 international normalized ratio (INR) 2.3 1.0-3.5 prothrombin time (patient) 23.8 SECS s 11.1-13.4 international normalized ratio (INR) 3.2 1.0-3.5 Encounters Code Encounter Date Provider Facility CPT-18448 Level 3 Est. Patient 10:48:17 DISTRIBUTION SALES REPRESENTATIVE Matthew Rangel MD [facility] CPT-09382 Level 4 Est. Patient 17:15:07 DISTRIBUTION SALES REPRESENTATIVE Piotr Daley [facility] CPT-49762 Level 3 Est. Patient 12:46:13 DISTRIBUTION SALES REPRESENTATIVE Piotr Daley [facility] CPT-48423 Level 3 Est. Patient 15:14:31 DISTRIBUTION SALES REPRESENTATIVE Piotr Daley [facility] CPT-53644 Level 3 Est. Patient 09:20:13 DISTRIBUTION SALES REPRESENTATIVE Piotr Daley [facility] CPT-74136 Level 3 Est. Patient 09:49:40 CDT Piotr Wilson [facility] CPT-67888 Level 3 Est. Patient 16:28:11 CDT Piotr Daley [facility] CPT-98550 Level 3 Est. Patient 12:41:58 DISTRIBUTION SALES REPRESENTATIVE Piotr Daley [facility] CPT-57401 Level 3 Est. Patient 09:21:24 CDT Piotr Daley [facility] CPT-10561 Level 3 Est. Patient 09:21:11 CDT Piotr Wilson [facility] CPT-75423 Level 3 Est. Patient 11:16:29 DISTRIBUTION SALES REPRESENTATIVE Piotr Daley [facility] CPT-68447 Level 3 Est. Patient 18:40:19 DISTRIBUTION SALES REPRESENTATIVE Piotr Daley [facility] CPT-65510 Level 3 Est. Patient 19:30:50 CDT Piotr Wilson [facility] CPT-83777 Level 3 Est. Patient 22:06:44 CDT Katrina Rinaldi MD [facility] CPT-32143 Level 3 Est. Patient 14:20:00 CDT Piotr Daley [facility] CPT-64933 Level 3 Est. Patient 14:15:22 DISTRIBUTION SALES REPRESENTATIVE Piotr Daley [facility] CPT-91414 Level 3 Est. Patient 20:19:57 DISTRIBUTION SALES REPRESENTATIVE Piotr Daley [facility] CPT-11190 Level 3 Est. Patient 16:44:32 CDT Piotr Daley [facility] CPT-90234 Level 3 Est. Patient 08:48:46 DISTRIBUTION SALES REPRESENTATIVE Piotr Daley [facility] CPT-89132 Level 3 Est. Patient 21:01:21 CDT Piotr Wilson [facility] Procedures Code Procedure Name Date Entry Date Standard Description CPT-44829 BMP - LAB USE ONLY 17:19:11 DISTRIBUTION SALES REPRESENTATIVE CPT-66669 PT/INR - LAB USE ONLY 17:19:10 DISTRIBUTION SALES REPRESENTATIVE CPT-60727 Venipuncture Draw Fee 17:19:10 DISTRIBUTION SALES REPRESENTATIVE CPT-21417 PT/INR - LAB USE ONLY 08:12:25 DISTRIBUTION SALES REPRESENTATIVE CPT-14549 Venipuncture Draw Fee 08:12:24 DISTRIBUTION SALES REPRESENTATIVE CPT-49624 Venipuncture Draw Fee 11:31:07 DISTRIBUTION SALES REPRESENTATIVE CPT-58073 TPSA - LAB USE ONLY 11:31:07 DISTRIBUTION SALES REPRESENTATIVE CPT-42732 PT/INR - LAB USE ONLY 11:31:07 DISTRIBUTION SALES REPRESENTATIVE CPT-G0439 [facility] Annual Wellness Exam 09:59:29 DISTRIBUTION SALES REPRESENTATIVE CPT-44368 Creatinine - LAB USE ONLY 14:37:55 DISTRIBUTION SALES REPRESENTATIVE CPT-85026 PT/INR - LAB USE ONLY 14:37:55 DISTRIBUTION SALES REPRESENTATIVE CPT-64161 Venipuncture Draw Fee 14:37:55 DISTRIBUTION SALES REPRESENTATIVE CPT-11418 LS spine comp w obliques - XRAY USE ONLY 12:59:25 DISTRIBUTION SALES REPRESENTATIVE CPT-14680 PT/INR - LAB USE ONLY 13:49:20 CDT CPT-40937 Venipuncture Draw Fee 13:49:19 CDT CPT-05852 PT/INR - LAB USE ONLY 15:48:49 CDT CPT-18482 Venipuncture Draw Fee 15:48:49 CDT CPT-76407 Venipuncture Draw Fee 11:31:59 CDT CPT-46852 PT/INR - LAB USE ONLY 11:31:59 CDT CPT-92538 Venipuncture Draw Fee 13:29:15 CDT CPT-74089 Thoracolumbar AP/Lat 15:19:19 DISTRIBUTION SALES REPRESENTATIVE CPT-G0438 Initial Annual Wellness Exam 12:18:54 DISTRIBUTION SALES REPRESENTATIVE CPT-67056 Knee 3V 09:57:38 CDT CPT-OV Office Visit 15:45:01 DISTRIBUTION SALES REPRESENTATIVE CPT-15503 Abd compl w upright 17:10:25 CDT
--- OUTSIDE RECORDS SUMMARY | 2018-07-18 07:36 | XMS REPORT | Clinical Summary ---
Author Author Admin, [employer] Organization [employer] Address Unknown Phone Unavailable Allergies, Adverse Reactions, [...] Coronary atherosclerosis of unspecified type of vessel, [place] or graft Back pain, thoracic region, left [...] Knee pain, left ICD-719.46 Inactive Sirisha Chen RF TEST TECHNICIAN Actinic keratoses ICD-702.0 Inactive Sirisha Chen RF TEST TECHNICIAN Back pain, thoracic region, left ICD-724.1 Inactive Piotr Daley DO Thoracic back pain ICD-724.5 Inactive Sirisha Chen RF TEST TECHNICIAN Back pain lumbar ICD-724.2 Inactive Sirisha Chen RF TEST TECHNICIAN Insect bite ICD-919.4 Inactive Sirisha Chen RF TEST TECHNICIAN Pruritus ICD-698.9 Inactive Sirisha Chen RF TEST TECHNICIAN 04/09 Bronchitis-Acute ICD-466.0 Inactive Sirisha Chen RF TEST TECHNICIAN Dyspnea ICD-786.09 Inactive Sirisha Chen RF TEST TECHNICIAN 05/09 Medication List Medication Instructions Start Date Stop Date Generic Name NDC Status Provider Patient Instruction WARFARIN SODIUM 4 MG ORAL TABLET 1 tablet by mouth daily except 2mg on Saturday and Saturday WARFARIN SODIUM 53132692249 Active Anahy Loja Active MELOXICAM 15 MG ORAL TABLET 1 po q day for pain with food MELOXICAM 15658730769 Active Piotr Daley DO Active PREDNISONE 10 MG ORAL TABLET 1 tablet by mouth daily PREDNISONE 14462255185 No Longer Active Emelyn Norris Active TESSALON PERLES 100 MG ORAL CAPSULE 1-2 tablet by mouth 3 times daily 04/16 BENZONATATE 85653281020 No Longer Active Emelyn Norris Active PREDNISONE 20 MG ORAL TABLET two tabs by mouth today, then one tab by mouth days two and three PREDNISONE 80682806951 No Longer Active Piotr W Edi DO Active CYCLOBENZAPRINE HCL 10 MG ORAL TABLET 1 tablet by mouth three times daily as needed for muscle spasm/pain CYCLOBENZAPRINE HCL 62019339954 Active Sirisha Chen LPN Active ZITHROMAX 250 MG ORAL TABLET Take two (2 ) tablets day one, then one (1) tablet a day for four (4) more days AZITHROMYCIN 35386067583 No Longer Active Piotr Daley DO Active PROAIR HFA 108 (90 BASE) MCG/ACT INHALATION AEROSOL SOLUTION 1-2 puffs four times a day as needed ALBUTEROL SULFATE 68100643458 No Longer Active Emelyn Norris Active DOXYCYCLINE HYCLATE 100 MG ORAL CAPSULE 1 cap by mouth BID x10 days DOXYCYCLINE HYCLATE 14986976873 No Longer Active Nella Harris APRN Active PREDNISONE 20 MG ORAL TABLET 2 tabs daily for 3 days, 1 tab daily for 3 days, 1/2 tab daily for 2 days PREDNISONE 03546100904 No Longer Active Matthew Rangel MD Active TRAMADOL HCL 50 MG ORAL TABLET 1 po tid with ES Tylenol TRAMADOL HCL 81727627403 No Longer Active Matthew Rangel MD Active GABAPENTIN 300 MG ORAL CAPSULE 1 po q hs for nerve pain GABAPENTIN 14067068982 No Longer Active Matthew Rangel MD Active PREDNISONE 20 MG ORAL TABLET 2 tablets today, then 1 tablet days 2 through 4 PREDNISONE 22946657619 No Longer Active Piotr Daley DO Active AZITHROMYCIN 250 MG ORAL TABLET 2 po qd x 1 day, then 1 po qd x 4 days 07/12 AZITHROMYCIN 83127841852 No Longer Active Piotr Daley DO Active IBUPROFEN 800 MG ORAL TABLET 1 tab every 8 hours as needed 07/12 IBUPROFEN 01006577974 No Longer Active Piotr Daley DO Active LOMOTIL 2.5-0.025 MG ORAL TABLET 1 to 2 four times a day as needed for diarrhea DIPHENOXYLATE-ATROPINE 81033755504 No Longer Active Piotr Daley DO Active WARFARIN SODIUM 4 MG ORAL TABLET 1 tab every evening WARFARIN SODIUM 39772745052 No Longer Active Piotr Daley DO Active PREDNISONE 20 MG ORAL TABLET 1 tablet twice daily for 2 days, then 1 tablet once daily for 2 days PREDNISONE 07821943621 No Longer Active Piotr Daley DO Active PROMETHAZINE HCL 25 MG ORAL TABLET 1 four times a day as needed for nausea/ vomiting PROMETHAZINE HCL 67329617752 No Longer Active Piotr Daley DO Active TUSSIONEX PENNKINETIC ER 10-8 MG/5ML ORAL SUSPENSION EXTENDED RELEASE 5ml po q12hr PRN Cough HYDROCOD POLST-CHLORPHEN POLST 39161345080 No Longer Active Piotr Daley DO Active AZITHROMYCIN 250 MG ORAL TABLET 2 po qd x 1 day, then 1 po qd x 4 days 10/13 AZITHROMYCIN 36678986413 No Longer Active Piotr Daley DO Active AZITHROMYCIN 250 MG ORAL TABLET 2 po qd x 1 day, then 1 po qd x 4 days 05/07 AZITHROMYCIN 51652899552 No Longer Active Piotr Daley DO Active LISINOPRIL-HYDROCHLOROTHIAZIDE 10-12.5 MG ORAL TABLET 1 tab by mouth daily LISINOPRIL-HYDROCHLOROTHIAZIDE 39576768040 Active Piotr Daley DO Active LISINOPRIL 10 MG ORAL TABLET 1/2-1 tab po every other day LISINOPRIL 32420340920 No Longer Active Piotr Daley DO Active VENTOLIN HFA 108 (90 Base) MCG/ACT INHALATION AEROSOL SOLUTION 2 puffs four times a day PRN cough ALBUTEROL SULFATE 24617265685 No Longer Active Piotr Daley DO Active NYSTATIN-TRIAMCINOLONE 940811-5.1 UNIT/GM-% EXTERNAL CREAM Apply to area BID NYSTATIN-TRIAMCINOLONE 93488586017 No Longer Active Alena Chavira RF TEST TECHNICIAN Active PHISOHEX 3 % LIQD Use Directed HEXACHLOROPHENE 68090998617 No Longer Active Sandra Highwood Active AZITHROMYCIN 250 MG ORAL TABLET 2 po qd x 1 day, then 1 po qd x 4 days 10/21 AZITHROMYCIN 46079956374 No Longer Active Katrina Rinaldi MD PhD Active AZITHROMYCIN 250 MG ORAL TABLET 2 po qd x 1 day, then 1 po qd x 4 days 10/16 AZITHROMYCIN 51350693410 No Longer Active Piotr Daley DO Active AZITHROMYCIN 500 MG INTRAVENOUS SOLUTION RECONSTITUTED 1 po q day AZITHROMYCIN 56174045511 No Longer Active Piotr Daley DO Active NYSTATIN-TRIAMCINOLONE 679702-2.1 UNIT/GM-% EXTERNAL CREAM apply bid NYSTATIN-TRIAMCINOLONE 50422460896 No Longer Active Piotr Daley DO Active IBUPROFEN 800 MG ORAL TABLET 1 po q 8 hours prn pain sparinly IBUPROFEN 11333861710 No Longer Active Piotr Daley DO Active VITAMIN D3 5000 UNIT ORAL CAPSULE 1 po daily CHOLECALCIFEROL 80237373455 Active Piotr Daley DO Active IBUPROFEN 800 MG ORAL TABLET 1 po q 8 hours prn pain sparinly IBUPROFEN 800 MG ORAL TABLET 855663 IBUPROFEN Inactive NYSTATIN-TRIAMCINOLONE 535917-9.1 UNIT/GM-% EXTERNAL CREAM apply bid NYSTATIN-TRIAMCINOLONE 220543-7.1 UNIT/GM-% EXTERNAL CREAM 2159384 NYSTATIN-TRIAMCINOLONE Inactive AZITHROMYCIN 500 MG INTRAVENOUS SOLUTION RECONSTITUTED 1 po q day AZITHROMYCIN 500 MG INTRAVENOUS SOLUTION RECONSTITUTED 80879715803 AZITHROMYCIN Inactive VENTOLIN HFA 108 (90 Base) MCG/ACT INHALATION AEROSOL SOLUTION 2 puffs four times a day PRN cough VENTOLIN HFA 108 (90 Base) MCG/ ACT INHALATION AEROSOL SOLUTION ALBUTEROL SULFATE Inactive LISINOPRIL 10 MG ORAL TABLET 1/2-1 tab po every other day LISINOPRIL 10 MG ORAL TABLET 688367 LISINOPRIL Inactive TUSSIONEX PENNKINETIC ER 10-8 MG/5ML ORAL SUSPENSION EXTENDED RELEASE 5ml po q12hr PRN Cough TUSSIONEX PENNKINETIC ER 10-8 MG/5ML ORAL SUSPENSION EXTENDED RELEASE HYDROCOD POLST-CHLORPHEN POLST Inactive PROMETHAZINE HCL 25 MG ORAL TABLET 1 four times a day as needed for nausea/ vomiting PROMETHAZINE HCL 25 MG ORAL TABLET 772328 PROMETHAZINE HCL Inactive PREDNISONE 20 MG ORAL TABLET 1 tablet twice daily for 2 days, then 1 tablet once daily for 2 days PREDNISONE 20 MG ORAL TABLET 685955 PREDNISONE Inactive WARFARIN SODIUM 4 MG ORAL TABLET 1 tab every evening WARFARIN SODIUM 4 MG ORAL TABLET 997262 WARFARIN SODIUM Inactive LOMOTIL 2.5-0.025 MG ORAL TABLET 1 to 2 four times a day as needed for diarrhea LOMOTIL 2.5-0.025 MG ORAL TABLET 6856160 DIPHENOXYLATE-ATROPINE Inactive IBUPROFEN 800 MG ORAL TABLET 1 tab every 8 hours as needed 07/12 IBUPROFEN 800 MG ORAL TABLET 449244 IBUPROFEN Inactive PREDNISONE 20 MG ORAL TABLET 2 tablets today, then 1 tablet days 2 through 4 PREDNISONE 20 MG ORAL TABLET 413802 PREDNISONE Inactive GABAPENTIN 300 MG ORAL CAPSULE 1 po q hs for nerve pain GABAPENTIN 300 MG ORAL CAPSULE 088350 GABAPENTIN Inactive TRAMADOL HCL 50 MG ORAL TABLET 1 po tid with ES Tylenol TRAMADOL HCL 50 MG ORAL TABLET 217811 TRAMADOL HCL Inactive PROAIR HFA 108 (90 BASE) MCG/ACT INHALATION AEROSOL SOLUTION 1-2 puffs four times a day as needed PROAIR HFA 108 (90 BASE) MCG/ACT INHALATION AEROSOL SOLUTION ALBUTEROL SULFATE Inactive PREDNISONE 20 MG ORAL TABLET two tabs by mouth today, then one tab by mouth days two and three PREDNISONE 20 MG ORAL TABLET 479994 PREDNISONE Inactive TESSALON PERLES 100 MG ORAL CAPSULE 1-2 tablet by mouth 3 times daily 04/16 TESSALON PERLES 100 MG ORAL CAPSULE 538852 BENZONATATE Inactive PREDNISONE 10 MG ORAL TABLET 1 tablet by mouth daily PREDNISONE 10 MG ORAL TABLET 931092 PREDNISONE Inactive AZITHROMYCIN 250 MG ORAL TABLET 2 po qd x 1 day, then 1 po qd x 4 days 10/16 AZITHROMYCIN 250 MG ORAL TABLET 592462 AZITHROMYCIN Inactive AZITHROMYCIN 250 MG ORAL TABLET 2 po qd x 1 day, then 1 po qd x 4 days 10/21 AZITHROMYCIN 250 MG ORAL TABLET 295164 AZITHROMYCIN Inactive NYSTATIN-TRIAMCINOLONE 787827-2.1 UNIT/GM-% EXTERNAL CREAM Apply to area BID NYSTATIN-TRIAMCINOLONE 329818-3.1 UNIT/GM-% EXTERNAL CREAM 8710674 NYSTATIN-TRIAMCINOLONE Inactive AZITHROMYCIN 250 MG ORAL TABLET 2 po qd x 1 day, then 1 po qd x 4 days 05/07 AZITHROMYCIN 250 MG ORAL TABLET 142970 AZITHROMYCIN Inactive AZITHROMYCIN 250 MG ORAL TABLET 2 po qd x 1 day, then 1 po qd x 4 days 10/13 AZITHROMYCIN 250 MG ORAL TABLET 635859 AZITHROMYCIN Inactive AZITHROMYCIN 250 MG ORAL TABLET 2 po qd x 1 day, then 1 po qd x 4 days 07/12 AZITHROMYCIN 250 MG ORAL TABLET 617337 AZITHROMYCIN Inactive PREDNISONE 20 MG ORAL TABLET 2 tabs daily for 3 days, 1 tab daily for 3 days, 1/2 tab daily for 2 days PREDNISONE 20 MG ORAL TABLET 595172 PREDNISONE Inactive DOXYCYCLINE HYCLATE 100 MG ORAL CAPSULE 1 cap by mouth BID x10 days DOXYCYCLINE HYCLATE 100 MG ORAL CAPSULE 2124614 DOXYCYCLINE HYCLATE Inactive ZITHROMAX 250 MG ORAL TABLET Take two (2 ) tablets day one, then one (1) tablet a day for four (4) more days ZITHROMAX 250 MG ORAL TABLET 655698 AZITHROMYCIN Inactive Advance Directives Directive Description Start [...] Range Description Lab Report: CBC-QUEST - Hematology leukocyte count, [...] % 11.0-15.0 platelet count 172 THOUSAND/UL 10*3/mm3 807-860 5671/04/12 mean platelet volume 8.6 fL 7.5-12.5 Lab Report: Prothrombin Time Hemochron - Coagulation prothrombin time (patient) 33.0 SECS s 18.9-24.9 Encounters Code Encounter Date Provider Facility CPT-01629 Level 3 Est. Patient 15:59:25 SHREDDING MACHINE OPERATOR Piotr Daley [facility] CPT-29402 Level 3 Est. Patient 12:33:59 SHREDDING MACHINE OPERATOR Piotr Daley [facility] CPT-45417 Level 3 Est. Patient 15:56:17 SHREDDING MACHINE OPERATOR Piotr Daley [facility] CPT-88986 Level 3 Est. Patient 10:34:54 SHREDDING MACHINE OPERATOR Piotr Daley [facility] CPT-72064 Level 3 Est. Patient 17:10:19 CDT Nella Harris APRN [facility] CPT-44466 Level 3 Est. Patient 10:48:17 SHREDDING MACHINE OPERATOR Matthew Rangel MD [facility] CPT-89009 Level 4 Est. Patient 17:15:07 SHREDDING MACHINE OPERATOR Piotr Daley [facility] CPT-28000 Level 3 Est. Patient 12:46:13 SHREDDING MACHINE OPERATOR Piotr Daley [facility] CPT-07649 Level 3 Est. Patient 15:14:31 SHREDDING MACHINE OPERATOR Piotr Katie Daley [facility] CPT-83624 Level 3 Est. Patient 09:20:13 SHREDDING MACHINE OPERATOR Piotr Katie Daley [facility] CPT-23497 Level 3 Est. Patient 09:49:40 CDT Piotr Katie Daley [facility] CPT-67736 Level 3 Est. Patient 16:28:11 CDT Piotr Daley [facility] CPT-51951 Level 3 Est. Patient 12:41:58 SHREDDING MACHINE OPERATOR Piotr Daley [facility] CPT-96518 Level 3 Est. Patient 09:21:24 CDT Piotr Daley [facility] CPT-88559 Level 3 Est. Patient 09:21:11 CDT Piotr Daley [facility] CPT-33102 Level 3 Est. Patient 11:16:29 SHREDDING MACHINE OPERATOR Piotr Katie Daley [facility] CPT-18097 Level 3 Est. Patient 18:40:19 SHREDDING MACHINE OPERATOR Piotr Daley [facility] CPT-95810 Level 3 Est. Patient 19:30:50 CDT Piotr Daley [facility] CPT-99094 Level 3 Est. Patient 22:06:44 CDT Katrina Rinaldi MD [facility] CPT-50135 Level 3 Est. Patient 14:20:00 CDT Piotr Daley [facility] CPT-28581 Level 3 Est. Patient 14:15:22 SHREDDING MACHINE OPERATOR Piotr Daley [facility] CPT-78194 Level 3 Est. Patient 20:19:57 SHREDDING MACHINE OPERATOR Piotr Daley [facility] CPT-61329 Level 3 Est. Patient 16:44:32 CDT Piotr Daley [facility] CPT-68957 Level 3 Est. Patient 08:48:46 SHREDDING MACHINE OPERATOR Piotr Daley [facility] CPT-48224 Level 3 Est. Patient 21:01:21 CDT Piotr Daley DO [facility] Procedures Code Procedure Name Date Entry Date Standard Description CPT-58640 Sacroiliac jt < 3V - XRAY USE ONLY 16:45:19 SHREDDING MACHINE OPERATOR 05/09 CPT-33395 LS spine comp w obliques - XRAY USE ONLY 14:52:26 SHREDDING MACHINE OPERATOR CPT-71019 Chest, 2 views 12:55:58 SHREDDING MACHINE OPERATOR CPT-G0439 Subsequent Annual Wellness Exam 10:34:52 SHREDDING MACHINE OPERATOR CPT-33210 BMP - LAB USE ONLY 17:19:11 SHREDDING MACHINE OPERATOR CPT-34159 PT/INR - LAB USE ONLY 17:19:10 SHREDDING MACHINE OPERATOR CPT-27646 Venipuncture Draw Fee 17:19:10 SHREDDING MACHINE OPERATOR CPT-51811 PT/INR - LAB USE ONLY 08:12:25 SHREDDING MACHINE OPERATOR CPT-01534 Venipuncture Draw Fee 08:12:24 SHREDDING MACHINE OPERATOR CPT-31600 Venipuncture Draw Fee 11:31:07 SHREDDING MACHINE OPERATOR CPT-56446 [facility]PS[facility] - LAB USE ONLY 11:31:07 [facility] CPT-57879 PT/INR - LAB USE ONLY 11:31:07 SHREDDING MACHINE OPERATOR CPT-G0439 Subsequent Annual Wellness Exam 09:59:29 SHREDDING MACHINE OPERATOR CPT-66291 Creatinine - LAB USE ONLY 14:37:55 SHREDDING MACHINE OPERATOR CPT-27510 PT/INR - LAB USE ONLY 14:37:55 SHREDDING MACHINE OPERATOR CPT-88293 Venipuncture Draw Fee 14:37:55 SHREDDING MACHINE OPERATOR CPT-45273 LS spine comp w obliques - XRAY USE ONLY 12:59:25 SHREDDING MACHINE OPERATOR CPT-02365 PT/INR - LAB USE ONLY 13:49:20 CDT CPT-01615 Venipuncture Draw Fee 13:49:19 CDT CPT-75969 PT/INR - LAB USE ONLY 15:48:49 CDT CPT-42599 Venipuncture Draw Fee 15:48:49 CDT CPT-75722 Venipuncture Draw Fee 11:31:59 CDT CPT-56226 PT/INR - LAB USE ONLY 11:31:59 CDT CPT-63760 Venipuncture Draw Fee 13:29:15 CDT CPT-68265 Thoracolumbar AP/Lat 15:19:19 SHREDDING MACHINE OPERATOR CPT-G0438 Initial Annual Wellness Exam 12:18:54 SHREDDING MACHINE OPERATOR CPT-24051 Knee 3V 09:57:38 CDT CPT-OV Office Visit 15:45:01 SHREDDING MACHINE OPERATOR CPT-46684 Abd compl w upright 17:10:25 CDT
--- OUTSIDE RECORDS SUMMARY | 2018-07-18 07:37 | XMS REPORT | Clinical Summary ---
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 DESIGNER Personal history of malignant neoplasm of prostate Coronary artery disease 414.00 Active Alina Meyers SALON DESIGNER Coronary atherosclerosis of unspecified type of vessel, ho[place] or graft Back pain, thoracic region, left 724.1 Active Piotr Katie Daley DO Pain in thoracic spine HEALTH MAINTENANCE EXAM ICD-V70.0 Inactive Katrina Rinaldi MD PhD BRONCHITIS-ACUTE ICD-466.0 Inactive Piotr Daley SCREENING, COLON CANCER ICD-V76.51 Inactive Katrina Rinaldi MD PhD BRONCHITIS-ACUTE ICD-466.0 Inactive Piotr Daley DO Bronchitis-Acute ICD-466.0 Inactive Piotr Katie Daley DO FLANK PAIN, RIGHT ICD-789.09 Inactive Katrina Rinaldi MD PhD Medication List Medication Instructions Start Date Stop Date Generic Name NDC Status Provider Patient Instruction TRAMADOL HCL 50 MG TABS 1 po tid with ES Tylenol TRAMADOL HCL 04855301744 Active Piotr Daley DO Active WARFARIN SODIUM 5 MG TABS 1 tablet daily except for Saturday and Sat/2 tablet. WARFARIN SODIUM 84059654514 Active Piotr Daley DO Active PREDNISONE 20 MG TAB 2 tablets today, then 1 tablet days 2 through 4 PREDNISONE 86864897502 No Longer Active Piotr Daley DO Active AZITHROMYCIN 250 MG TABS 2 po qd x 1 day, then 1 po qd x 4 days AZITHROMYCIN 72275842472 No Longer Active Piotr Daley DO Active IBUPROFEN 800 MG TABS 1 tab every 8 hours as needed IBUPROFEN 78267417971 No Longer Active Piotr Daley DO Active LOMOTIL 2.5-0.025 MG TAB 1 to 2 four times a day as needed for diarrhea 10/13 DIPHENOXYLATE-ATROPINE 15757060419 No Longer Active Piotr Daley DO Active WARFARIN SODIUM 4 MG TABS 1 tab every evening WARFARIN SODIUM 07572538130 No Longer Active Piotr Daley DO Active PREDNISONE 20 MG TAB 1 tablet twice daily for 2 days, then 1 tablet once daily for 2 days PREDNISONE 47113320289 No Longer Active Piotr Daley DO Active PROMETHAZINE HCL 25 MG TABS 1 four times a day as needed for nausea/vomiting PROMETHAZINE HCL 07897490313 No Longer Active Piotr Daley DO Active TUSSIONEX PENNKINETIC ER 10-8 MG/5ML LQCR 5ml po q12hr PRN Cough HYDROCOD POLST-CHLORPHEN POLST 36566348027 No Longer Active Piotr Daley DO Active AZITHROMYCIN 250 MG TABS 2 po qd x 1 day, then 1 po qd x 4 days AZITHROMYCIN 64400196459 No Longer Active Piotr Daley DO Active AZITHROMYCIN 250 MG TABS 2 po qd x 1 day, then 1 po qd x 4 days AZITHROMYCIN 88172823054 No Longer Active Piotr Daley DO Active LISINOPRIL-HYDROCHLOROTHIAZIDE 10-12.5 MG TABS 1 tab by mouth daily LISINOPRIL-HYDROCHLOROTHIAZIDE 60486212827 Active Piotr Daley DO Active LISINOPRIL 10 MG TABS 1/2-1 tab po every other day LISINOPRIL 07607738811 No Longer Active Piotr Daley DO Active VENTOLIN HFA 108 (90 BASE) MCG/ACT AERS 2 puffs four times a day PRN cough ALBUTEROL SULFATE 55266356463 No Longer Active Piotr Daley DO Active NYSTATIN-TRIAMCINOLONE 336892-7.1 UNIT/GM-% CREA Apply to area BID NYSTATIN-TRIAMCINOLONE 08965711157 No Longer Active Alena Jarvis Fan HUMAN RESOURCES TALENT MANAGER Active PHISOHEX 3 % LIQD Use Directed HEXACHLOROPHENE 57079307191 No Longer Active Sandra Anthony Active AZITHROMYCIN 250 MG TABS 2 po qd x 1 day, then 1 po qd x 4 days AZITHROMYCIN 24082119323 No Longer Active Katrina Rinaldi MD PhD Active AZITHROMYCIN 250 MG TABS 2 po qd x 1 day, then 1 po qd x 4 days AZITHROMYCIN 52434974058 No Longer Active Piotr Daley DO Active AZITHROMYCIN 500 MG SOLR 1 po q day AZITHROMYCIN 32975667333 No Longer Active Piotr Daley DO Active NYSTATIN-TRIAMCINOLONE 792522-0.1 UNIT/GM-% CREA apply bid 08/19 NYSTATIN-TRIAMCINOLONE 90266115257 No Longer Active Piotr Daley DO Active IBUPROFEN 800 MG TABS 1 po q 8 hours prn pain sparinly IBUPROFEN 83508184183 No Longer Active Piotr Daley DO Active VITAMIN D3 5000 UNIT CAPS 1 po daily CHOLECALCIFEROL 63928290236 Active Piotr Daley DO Active IBUPROFEN 800 MG TABS 1 po q 8 hours prn pain sparinly IBUPROFEN 800 MG TABS IBUPROFEN Inactive NYSTATIN-TRIAMCINOLONE 606394-4.1 UNIT/GM-% CREA apply bid 08/19 NYSTATIN-TRIAMCINOLONE 741568-6.1 UNIT/GM-% CREA 6457460 NYSTATIN- TRIAMCINOLONE Inactive AZITHROMYCIN 500 MG SOLR 1 po q day AZITHROMYCIN 500 MG SOLR 066677 AZITHROMYCIN Inactive VENTOLIN HFA 108 (90 BASE) MCG/ACT AERS 2 puffs four times a day PRN cough VENTOLIN HFA 108 (90 BASE) MCG/ACT AERS ALBUTEROL SULFATE Inactive LISINOPRIL 10 MG TABS 1/2-1 tab po every other day LISINOPRIL 10 MG TABS 476494 LISINOPRIL Inactive TUSSIONEX PENNKINETIC ER 10-8 MG/5ML LQCR 5ml po q12hr PRN Cough TUSSIONEX PENNKINETIC ER 10-8 MG/5ML LQCR HYDROCOD POLST- CHLORPHEN POLST Inactive PROMETHAZINE HCL 25 MG TABS 1 four times a day as needed for nausea/vomiting PROMETHAZINE HCL 25 MG TABS 670635 PROMETHAZINE HCL Inactive PREDNISONE 20 MG TAB 1 tablet twice daily for 2 days, then 1 tablet once daily for 2 days PREDNISONE 20 MG TAB 899308 PREDNISONE Inactive WARFARIN SODIUM 4 MG TABS 1 tab every evening WARFARIN SODIUM 4 MG TABS 577014 WARFARIN SODIUM Inactive LOMOTIL 2.5-0.025 MG TAB 1 to 2 four times a day as needed for diarrhea 10/13 LOMOTIL 2.5-0.025 MG TAB 5444514 DIPHENOXYLATE-ATROPINE Inactive IBUPROFEN 800 MG TABS 1 tab every 8 hours as needed IBUPROFEN 800 MG TABS 934680 IBUPROFEN Inactive PREDNISONE 20 MG TAB 2 tablets today, then 1 tablet days 2 through 4 PREDNISONE 20 MG TAB 748100 PREDNISONE Inactive AZITHROMYCIN 250 MG TABS 2 po qd x 1 day, then 1 po qd x 4 days AZITHROMYCIN 250 MG TABS 9984999 AZITHROMYCIN Inactive AZITHROMYCIN 250 MG TABS 2 po qd x 1 day, then 1 po qd x 4 days AZITHROMYCIN 250 MG TABS 7240485 AZITHROMYCIN Inactive NYSTATIN-TRIAMCINOLONE 340903-6.1 UNIT/GM-% CREA Apply to area BID NYSTATIN-TRIAMCINOLONE 042826-1.1 UNIT/GM-% CREA 4165224 NYSTATIN-TRIAMCINOLONE Inactive AZITHROMYCIN 250 MG TABS 2 po qd x 1 day, then 1 po qd x 4 days AZITHROMYCIN 250 MG TABS 6739561 AZITHROMYCIN Inactive AZITHROMYCIN 250 MG TABS 2 po qd x 1 day, then 1 po qd x 4 days AZITHROMYCIN 250 MG TABS 3243545 AZITHROMYCIN Inactive AZITHROMYCIN 250 MG TABS 2 po qd x 1 day, then 1 po qd x 4 days AZITHROMYCIN 250 MG TABS 5647550 AZITHROMYCIN Inactive Advance Directives Directive Description Start Date LIVING WILL Vital Signs Date Name Value Unit Range Description blood pressure, diastolic - 8462-4 82 mm[Hg] BP phan blood pressure, systolic - 8480-6 117 mm[Hg] BP sys pulse rate E&M - 8867-4 77 /min Heart rate temperature E&M 98.6 [degF] Body temperature weight E&M - 3141-9 222 [lb_av] Weight Measured blood pressure, diastolic - 8462-4 68 mm[Hg] BP phan blood pressure, systolic - 8480-6 114 mm[Hg] BP sys height E&M - 8302-2 71 [in_us] Bdy height pulse rate E&M - 8867-4 63 /min Heart rate temperature E&M 97.1 [degF] Body temperature weight E&M - 3141-9 224 [lb_av] Weight Measured blood pressure, diastolic - 8462-4 78 mm[Hg] BP phan blood pressure, systolic - 8480-6 136 mm[Hg] BP sys height E&M - 8302-2 71 [in_us] Bdy height pulse rate E&M - 8867-4 75 /min Heart rate temperature E&M 98.7 [degF] Body temperature weight E&M - 3141-9 226 [lb_av] Weight Measured blood pressure, diastolic - 8462-4 78 mm[Hg] [...] E&M - 3141-9 226.0 [lb_av] Weight Measured Diagnostic Results Date Name Value Unit Range Description Append: Anticoagulation Management - Coagulation international normalized ratio (INR) 2.5 international normalized ratio (INR) 2.1 Lab Report: MICROALBUMIN, Comp. Metabolic Panel, CBC - Chemistry albumin/creatinine ratio, urine < 30 mg/g mg/g{creat} 0-29 sodium, serum 140 mmol/L 868-771 3023/07/17 potassium, serum 4.2 mmol/L 3.5-5.2 chloride, serum 103 mmol/L 98-107 carbon dioxide, venous blood 30.0 mmol/L 21.0-32.0 blood glucose 89 mg/dL 65-110 urea nitrogen, blood 11 mg/dL 7-18 creatinine, serum 1.00 mg/dL 0.60-1.30 alanine aminotransferase (SGPT), serum 25 U/L 12-78 aspartate aminotransferase (SGOT), serum 19 U/L 15-37 calcium, serum 8.1 mg/dL 8.5-10.1 bilirubin, serum, total 0.50 mg/dL 0.00-1.00 Lab Report: MICROALBUMIN, Comp. Metabolic Panel, CBC - Hematology leukocyte count, blood 5.5 10^3/MM^3 10*3/mm3 4.6-10.2 erythrocyte (RBC) count 5.24 10^6/MM^3 10*6/mm3 4.69-6.13 hemoglobin, blood 15.1 g/dL 13.5-17.5 hematocrit, blood 44.8 % 41.0-53.0 mean corpuscular volume, RBC 85 fL 80-97 mean corpuscular hemoglobin, RBC 28.7 pg 27.0-31.2 mean corpuscular hemoglobin concentration, RBC 33.6 G/DL % 31.8- 35.4 red blood cell distribution width 15.6 % 11.6-14.8 platelet count 190 10^3/MM^3 10*3/mm3 142-424 Lab Report: MICROALBUMIN, Comp. Metabolic Panel, CBC - Lab microalbumin, urine 10 0-19 Lab Report: Prothrombin Time - Coagulation prothrombin time (patient) 16.5 SECS s 11.1-13.4 international normalized ratio (INR) 1.9 1.0-3.5 prothrombin time (patient) 19.9 SECS s 11.1-13.4 international normalized ratio (INR) 2.6 1.0-3.5 prothrombin time (patient) 17.3 SECS s 11.1-13.4 international normalized ratio (INR) 1.99 1.0-3.5 prothrombin time (patient) 18.8 SECS s 11.1-13.4 international normalized ratio (INR) 2.3 1.0-3.5 prothrombin time (patient) 17.5 SECS s 11.1-13.4 international normalized ratio (INR) 2.1 1.0-3.5 prothrombin time (patient) 17.5 SECS s 11.1-13.4 international normalized ratio (INR) 2.1 1.0-3.5 prothrombin time (patient) 23.4 SECS s 11.1-13.4 international normalized ratio (INR) 3.5 1.0-3.5 prothrombin time (patient) 21.0 SECS s 11.1-13.4 international normalized ratio (INR) 2.8 1.0-3.5 prothrombin time (patient) 17.7 SECS s 11.1-13.4 international normalized ratio (INR) 2.0 1.0-3.5 prothrombin time (patient) 19.5 SECS s 11.1-13.4 international normalized ratio (INR) 2.5 1.0-3.5 Lab Report: Prothrombin Time, Prostatic Specific Ag - Chemistry prostate specific antigen 0.04 ng/mL 0.00-4.00 Lab Report: Prothrombin Time, Prostatic Specific Ag - Coagulation prothrombin time (patient) 16.6 SECS s 11.1-13.4 international normalized ratio (INR) 1.9 1.0-3.5 Lab Report: UADIP W/MICRO, AUTO - Chemistry protein, total urine random Negative mg/dL Negative RBC, urine, dipstick Negative Negative Lab Report: UADIP W/MICRO, AUTO - Urinalysis urobilinogen, urine, semiquantitative (dipstick) 0.2 Normal leukocyte esterase, urine, by dipstick Negative Negative nitrite, urine, semiquantitative Negative Negative glucose, urine, semiquantitative Negative Negative ketones, urine, by test strip Negative Negative bilirubin, urine Negative Negative urine color Yellow Colorless;Lightyellow;Straw;Yellow appearance, urine Clear Clear specific gravity, urine 1.025 1.000-1.030 pH, urine, semiquantitative 6.0 5.0-8.5 Encounters Code Encounter Date Provider Facility CPT-96732 Level 3 Est. Patient 15:14:31 EXHAUSTER ENGINEER Piotr Daley [facility] CPT-12578 Level 3 Est. Patient 09:20:13 EXHAUSTER ENGINEER Piotr Daley [facility]-91315 Level 3 Est. Patient 09:49:40 CDT Piotr Daley [facility] CPT-96577 Level 3 Est. Patient 16:28:11 CDT Piotr Daley [facility] CPT-06366 Level 3 Est. Patient 12:41:58 EXHAUSTER ENGINEER Piotr Daley [facility] CPT-10463 Level 3 Est. Patient 09:21:24 CDT Piotr Daley [facility]-95536 Level 3 Est. Patient 09:21:11 CDT Piotr Daley [facility]-75772 Level 3 Est. Patient 11:16:29 EXHAUSTER ENGINEER Piotr Daley [facility] CPT-59337 Level 3 Est. Patient 18:40:19 EXHAUSTER ENGINEER Piotr Daley [facility]-59588 Level 3 Est. Patient 19:30:50 CDT Piotr Daley [facility]-31627 Level 3 Est. Patient 22:06:44 CDT Katrina Rinaldi MD PhD [facility]-46768 Level 3 Est. Patient 14:20:00 CDT Piotr Daley [facility] CPT-13615 Level 3 Est. Patient 14:15:22 EXHAUSTER ENGINEER Piotr Daley [facility] CPT-88496 Level 3 Est. Patient 20:19:57 EXHAUSTER ENGINEER Piotr Daley [facility] CPT-68076 Level 3 Est. Patient 16:44:32 CDT Piotr Daley [facility] CPT-43133 Level 3 Est. Patient 08:48:46 EXHAUSTER ENGINEER Piotr Wilson [facility] CPT-49446 Level 3 Est. Patient 21:01:21 CDT Piotr Wilson [facility] Procedures Code Procedure Name Date Entry Date Standard Description CPT-24660 Thoracolumbar AP/Lat 15:19:19 EXHAUSTER ENGINEER CPT-G0438 Initial Annual Wellness Exam 12:18:54 EXHAUSTER ENGINEER CPT-18458 Knee 3V 09:57:38 CDT CPT-OV Office Visit 15:45:01 EXHAUSTER ENGINEER CPT-36467 Abd compl w upright 17:10:25 CDT
--- OUTSIDE RECORDS SUMMARY | 2018-07-18 07:37 | XMS REPORT | Clinical Summary ---
Author Author Admin, YONG Organization [facility] Address Unknown Phone Unavailable Allergies, Adverse [...] neoplasm of prostate V10.46 Active Alina Meyers REPEATER CHIEF Personal history of malignant neoplasm of prostate Coronary artery disease 414.00 Active Alina Meyers REPEATER CHIEF Coronary atherosclerosis of unspecified type of vessel, [place] or graft Back pain, thoracic region, left 724.1 Inactive Piotr Katie Daley DO Pain in thoracic spine Thoracic back pain 724.5 Active Piotr Katie Daley DO Backache, unspecified Back pain lumbar 724.2 Active Piotr Katie Daley DO Lumbago FLANK PAIN, RIGHT ICD-789.09 Inactive Katrina Rinaldi [...] po tid with ES Tylenol TRAMADOL HCL 16989807235 Active Piotr Daley DO Active WARFARIN SODIUM 5 MG TABS 1 tablet daily except for Saturday and Sat 1/ tablet. WARFARIN SODIUM 62260793921 Active Hilary Ma MA Active PREDNISONE 20 MG TAB 2 tablets today, then 1 tablet days 2 through 4 PREDNISONE 42011204882 No Longer Active Piotr Daley DO Active AZITHROMYCIN 250 MG TABS 2 po qd x 1 day, then 1 po qd x 4 days AZITHROMYCIN 65666287236 No Longer Active Piotr Daley DO Active IBUPROFEN 800 MG TABS 1 tab every 8 hours as needed IBUPROFEN 98644137385 No Longer Active Piotr Daley DO Active LOMOTIL 2.5-0.025 MG TAB 1 to 2 four times a day as needed for diarrhea 10/13 DIPHENOXYLATE-ATROPINE 69707523160 No Longer Active Piotr Daley DO Active WARFARIN SODIUM 4 MG TABS 1 tab every evening WARFARIN SODIUM 79765893768 No Longer Active Piotr Daley DO Active PREDNISONE 20 MG TAB 1 tablet twice daily for 2 days, then 1 tablet once daily for 2 days PREDNISONE 79072367442 No Longer Active Piotr Daley DO Active PROMETHAZINE HCL 25 MG TABS 1 four times a day as needed for nausea/vomiting PROMETHAZINE HCL 26084297170 No Longer Active Piotr Daley DO Active TUSSIONEX PENNKINETIC ER 10-8 MG/5ML LQCR 5ml po q12hr PRN Cough HYDROCOD POLST-CHLORPHEN POLST 49533968494 No Longer Active Piotr Daley DO Active AZITHROMYCIN 250 MG TABS 2 po qd x 1 day, then 1 po qd x 4 days AZITHROMYCIN 06156737725 No Longer Active Piotr Daley DO Active AZITHROMYCIN 250 MG TABS 2 po qd x 1 day, then 1 po qd x 4 days AZITHROMYCIN 46858693557 No Longer Active Piotr Daley DO Active LISINOPRIL-HYDROCHLOROTHIAZIDE 10-12.5 MG TABS 1 tab by mouth daily LISINOPRIL-HYDROCHLOROTHIAZIDE 64554013927 Active Hilary Ma MA Active LISINOPRIL 10 MG TABS 1/2-1 tab po every other day LISINOPRIL 13480625267 No Longer Active Piotr Daley DO Active VENTOLIN HFA 108 (90 BASE) MCG/ACT AERS 2 puffs four times a day PRN cough ALBUTEROL SULFATE 20278147859 No Longer Active Piotr Daley DO Active NYSTATIN-TRIAMCINOLONE 937717-3.1 UNIT/GM-% CREA Apply to area BID NYSTATIN-TRIAMCINOLONE 58130326171 No Longer Active Alena Chavira STALLION MANAGER Active PHISOHEX 3 % LIQD Use Directed HEXACHLOROPHENE 04159275363 No Longer Active Sandra Colver Active AZITHROMYCIN 250 MG TABS 2 po qd x 1 day, then 1 po qd x 4 days AZITHROMYCIN 70364021580 No Longer Active Katrina Rinaldi MD PhD Active AZITHROMYCIN 250 MG TABS 2 po qd x 1 day, then 1 po qd x 4 days AZITHROMYCIN 09017145765 No Longer Active Piotr Daley DO Active AZITHROMYCIN 500 MG SOLR 1 po q day AZITHROMYCIN 84362553476 No Longer Active Piotr Daley DO Active NYSTATIN-TRIAMCINOLONE 687894-1.1 UNIT/GM-% CREA apply bid 08/19 NYSTATIN-TRIAMCINOLONE 80596487163 No Longer Active Piotr W Edi DO Active IBUPROFEN 800 MG TABS 1 po q 8 hours prn pain sparinly IBUPROFEN 60790949924 No Longer Active Piotr Daley DO Active VITAMIN D3 5000 UNIT CAPS 1 po daily CHOLECALCIFEROL 56631880470 Active Piotr Wilson Edi DO Active IBUPROFEN 800 MG TABS 1 po q 8 hours prn pain sparinly IBUPROFEN 800 MG TABS 727240 IBUPROFEN Inactive NYSTATIN-TRIAMCINOLONE 382233-3.1 UNIT/GM-% CREA apply bid 08/19 NYSTATIN-TRIAMCINOLONE 350840-7.1 UNIT/GM-% CREA 9708375 NYSTATIN- TRIAMCINOLONE Inactive AZITHROMYCIN 500 MG SOLR 1 po q day AZITHROMYCIN 500 MG SOLR 94378099617 AZITHROMYCIN Inactive VENTOLIN HFA 108 (90 BASE) MCG/ACT AERS 2 puffs four times a day PRN cough VENTOLIN HFA 108 (90 BASE) MCG/ACT AERS ALBUTEROL SULFATE Inactive LISINOPRIL 10 MG TABS 1/2-1 tab po every other day LISINOPRIL 10 MG TABS 558491 LISINOPRIL Inactive TUSSIONEX PENNKINETIC ER 10-8 MG/5ML LQCR 5ml po q12hr PRN Cough TUSSIONEX PENNKINETIC ER 10-8 MG/5ML LQCR HYDROCOD POLST- CHLORPHEN POLST Inactive PROMETHAZINE HCL 25 MG TABS 1 four times a day as needed for nausea/vomiting PROMETHAZINE HCL 25 MG TABS 203488 PROMETHAZINE HCL Inactive PREDNISONE 20 MG TAB 1 tablet twice daily for 2 days, then 1 tablet once daily for 2 days PREDNISONE 20 MG TAB 975207 PREDNISONE Inactive WARFARIN SODIUM 4 MG TABS 1 tab every evening WARFARIN SODIUM 4 MG TABS 624076 WARFARIN SODIUM Inactive LOMOTIL 2.5-0.025 MG TAB 1 to 2 four times a day as needed for diarrhea 10/13 LOMOTIL 2.5-0.025 MG TAB 6617933 DIPHENOXYLATE-ATROPINE Inactive IBUPROFEN 800 MG TABS 1 tab every 8 hours as needed IBUPROFEN 800 MG TABS 402650 IBUPROFEN Inactive PREDNISONE 20 MG TAB 2 tablets today, then 1 tablet days 2 through 4 PREDNISONE 20 MG TAB 244313 PREDNISONE Inactive AZITHROMYCIN 250 MG TABS 2 po qd x 1 day, then 1 po qd x 4 days AZITHROMYCIN 250 MG TABS 2547917 AZITHROMYCIN Inactive AZITHROMYCIN 250 MG TABS 2 po qd x 1 day, then 1 po qd x 4 days AZITHROMYCIN 250 MG TABS 0038716 AZITHROMYCIN Inactive NYSTATIN-TRIAMCINOLONE 101408-7.1 UNIT/GM-% CREA Apply to area BID NYSTATIN-TRIAMCINOLONE 248119-1.1 UNIT/GM-% CREA 1875732 NYSTATIN-TRIAMCINOLONE Inactive AZITHROMYCIN 250 MG TABS 2 po qd x 1 day, then 1 po qd x 4 days AZITHROMYCIN 250 MG TABS 7980131 AZITHROMYCIN Inactive AZITHROMYCIN 250 MG TABS 2 po qd x 1 day, then 1 po qd x 4 days AZITHROMYCIN 250 MG TABS 1044966 AZITHROMYCIN Inactive AZITHROMYCIN 250 MG TABS 2 po qd x 1 day, then 1 po qd x 4 days AZITHROMYCIN 250 MG TABS 5928684 AZITHROMYCIN Inactive Advance Directives Directive Description Start [...] international normalized ratio (INR) 2.1 Lab Report: CBC - Hematology leukocyte count, blood 5.2 10^3/MM^3 10*3/mm3 4.6-10.2 erythrocyte (RBC) count 5.20 10^6/MM^3 10*6/mm3 4.69-6.13 hemoglobin, blood 14.8 g/dL 13.5-17.5 hematocrit, blood 43.6 % 41.0-53.0 mean corpuscular volume, RBC 84 fL 80-97 mean corpuscular hemoglobin, RBC 28.4 pg 27.0-31.2 mean corpuscular hemoglobin concentration, RBC 33.9 G/DL % 31.8- 35.4 red blood cell distribution width 15.0 % 11.6-14.8 platelet count 210 10^3/MM^3 10*3/mm3 142-424 Lab Report: MICROALBUMIN, Comp. Metabolic Panel, CBC - Chemistry albumin/creatinine ratio, urine < 30 mg/g mg/g{creat} 0-29 sodium, serum 140 mmol/L 954-421 0772/07/17 potassium, serum 4.2 mmol/L 3.5-5.2 chloride, serum [...] Prothrombin Time - Coagulation prothrombin time (patient) 19.5 SECS s 11.1-13.4 international normalized ratio (INR) 2.5 1.0-3.5 prothrombin time (patient) 18.8 SECS s 11.1-13.4 international normalized ratio (INR) 2.3 1.0-3.5 prothrombin time (patient) 17.5 SECS s 11.1-13.4 international normalized ratio (INR) 2.1 1.0-3.5 prothrombin time (patient) 17.5 SECS s 11.1-13.4 international normalized ratio (INR) 2.1 1.0-3.5 prothrombin time (patient) 16.5 SECS s 11.1-13.4 international normalized ratio (INR) 1.9 1.0-3.5 prothrombin time (patient) 19.9 SECS s 11.1-13.4 international normalized ratio (INR) 2.6 1.0-3.5 prothrombin time (patient) 17.3 SECS s 11.1-13.4 international normalized ratio (INR) 1.99 1.0-3.5 prothrombin time (patient) 16.6 SECS s 11.1-13.4 international normalized ratio (INR) 1.9 1.0-3.5 prothrombin time (patient) 18.9 SECS s 11.1-13.4 international normalized ratio (INR) 2.4 1.0-3.5 Lab Report: Prothrombin Time, Prostatic Specific [...] 5.0-8.5 Encounters Code Encounter Date Provider Facility CPT-17058 Level 3 Est. Patient 15:14:31 BANBURY OPERATOR Piotr Daley DO [facility] CPT-74904 Level 3 Est. Patient 09:20:13 BANBURY OPERATOR Piotr Daley [facility] CPT-29895 Level 3 Est. Patient 09:49:40 CDT Piotr Daley [facility] CPT-66337 Level 3 Est. Patient 16:28:11 CDT Piotr Daley [facility] CPT-79992 Level 3 Est. Patient 12:41:58 BANBURY OPERATOR Piotr Daley [facility] CPT-14131 Level 3 Est. Patient 09:21:24 CDT Piotr Daley [facility] CPT-30234 Level 3 Est. Patient 09:21:11 CDT Piotr Daley [facility] CPT-02495 Level 3 Est. Patient 11:16:29 BANBURY OPERATOR Piotr Daley [facility] CPT-86298 Level 3 Est. Patient 18:40:19 BANBURY OPERATOR Piotr Daley [facility] CPT-81152 Level 3 Est. Patient 19:30:50 CDT Piotr Daley [facility] CPT-93764 Level 3 Est. Patient 22:06:44 CDT Katrina Rinaldi MD [facility] CPT-88936 Level 3 Est. Patient 14:20:00 CDT Piotr Daley [facility] CPT-47834 Level 3 Est. Patient 14:15:22 BANBURY OPERATOR Piotr Daley [facility] CPT-98756 Level 3 Est. Patient 20:19:57 BANBURY OPERATOR Piotr Daley [facility] CPT-97240 Level 3 Est. Patient 16:44:32 CDT Piotr Katie Daley [facility] CPT-26200 Level 3 Est. Patient 08:48:46 BANBURY OPERATOR Piotr Wilson [facility] CPT-46825 Level 3 Est. Patient 21:01:21 CDT Piotr Katie Edi [facility] Procedures Code Procedure Name Date Entry Date Standard Description CPT-30365 Thoracolumbar AP/Lat 15:19:19 BANBURY OPERATOR CPT-G0438 Initial Annual Wellness Exam 12:18:54 BANBURY OPERATOR CPT-26527 Knee 3V 09:57:38 CDT CPT-OV Office Visit 15:45:01 BANBURY OPERATOR CPT-73129 Abd compl w upright 17:10:25 CDT
--- OUTSIDE RECORDS SUMMARY | 2018-07-18 07:38 | XMS REPORT | Clinical Summary ---
Author Author Admin, E Organization [employer] Address Unknown Phone Unavailable Allergies, Adverse Reactions, [...] care facility Actinic keratoses 702.0 Active Piotr Wilson Edi DO Actinic keratosis Personal history of malignant neoplasm of prostate V10.46 Active Alina Meyers DIVISION SUPERVISOR Personal history of malignant neoplasm of prostate Coronary artery disease 414.00 Active Alina Luigi DIVISION SUPERVISOR Coronary atherosclerosis of unspecified type of vessel, iliam[place] or graft Back pain, thoracic region, left 724.1 Inactive Piotr Katie Edi DO Pain in thoracic spine Thoracic back pain 724.5 Active Piotr W Edi DO Backache, unspecified Back pain lumbar 724.2 Active Piotr Daley DO Lumbago Peripheral neuropathy, lower extremity, left 356.9 Active 02/19 Piotr W Edi DO Unspecified hereditary and idiopathic peripheral neuropathy Insect bite 919.4 Active Nella Harris DIVISION SUPERVISOR Insect bite, nonvenomous, of other, multiple, and unspecified sites, without mention of infection Pruritus 698.9 Active Nella Harris DIVISION SUPERVISOR Unspecified pruritic disorder Wellness exam V70.0 Active [...] times a day as needed ALBUTEROL SULFATE 29665338116 No Longer Active Emelyn Norris Active DOXYCYCLINE HYCLATE 100 MG ORAL CAPSULE 1 cap by mouth BID x10 days DOXYCYCLINE HYCLATE 92275788712 No Longer Active Nella Harris APRN Active WARFARIN SODIUM 5 MG ORAL TABLET 1 tablet daily M-S, 1/2 tab on Heart WARFARIN SODIUM 94197806482 Active Piotr Daley DO Active PREDNISONE 20 MG ORAL TABLET 2 tabs daily for 3 days, 1 tab daily for 3 days, 1/2 tab daily for 2 days PREDNISONE 48086366545 No Longer Active Matthew Rangel MD Active TRAMADOL HCL 50 MG ORAL TABLET 1 po tid with ES Tylenol TRAMADOL HCL 33131742936 No Longer Active Matthew Rangel MD Active GABAPENTIN 300 MG ORAL CAPSULE 1 po q hs for nerve pain GABAPENTIN 69233249432 No Longer Active Matthew Rangel MD Active PREDNISONE 20 MG ORAL TABLET 2 tablets today, then 1 tablet days 2 through 4 PREDNISONE 40010551433 No Longer Active Piotr Daley DO Active AZITHROMYCIN 250 MG ORAL TABLET 2 po qd x 1 day, then 1 po qd x 4 days 07/12 AZITHROMYCIN 77961056548 No Longer Active Piotr Daley DO Active IBUPROFEN 800 MG ORAL TABLET 1 tab every 8 hours as needed 07/12 IBUPROFEN 65751054712 No Longer Active Piotr Daley DO Active LOMOTIL 2.5-0.025 MG ORAL TABLET 1 to 2 four times a day as needed for diarrhea DIPHENOXYLATE-ATROPINE 31929704952 No Longer Active Piotr Daley DO Active WARFARIN SODIUM 4 MG ORAL TABLET 1 tab every evening WARFARIN SODIUM 70470279356 No Longer Active Piotr Daley DO Active PREDNISONE 20 MG ORAL TABLET 1 tablet twice daily for 2 days, then 1 tablet once daily for 2 days PREDNISONE 42566514972 No Longer Active Piotr Daley DO Active PROMETHAZINE HCL 25 MG ORAL TABLET 1 four times a day as needed for nausea/ vomiting PROMETHAZINE HCL 43199717885 No Longer Active Piotr Daley DO Active TUSSIONEX PENNKINETIC ER 10-8 MG/5ML ORAL SUSPENSION EXTENDED RELEASE 5ml po q12hr PRN Cough HYDROCOD POLST-CHLORPHEN POLST 39043737816 No Longer Active Piotr Daley DO Active AZITHROMYCIN 250 MG ORAL TABLET 2 po qd x 1 day, then 1 po qd x 4 days 10/13 AZITHROMYCIN 91299191549 No Longer Active Piotr Daley DO Active AZITHROMYCIN 250 MG ORAL TABLET 2 po qd x 1 day, then 1 po qd x 4 days 05/07 AZITHROMYCIN 18862516662 No Longer Active Piotr Daley DO Active LISINOPRIL-HYDROCHLOROTHIAZIDE 10-12.5 MG ORAL TABLET 1 tab by mouth daily LISINOPRIL-HYDROCHLOROTHIAZIDE 92378083924 Active Piotr Daley DO Active LISINOPRIL 10 MG ORAL TABLET 1/2-1 tab po every other day LISINOPRIL 02083771204 No Longer Active Piotr Daley DO Active VENTOLIN HFA 108 (90 Base) MCG/ACT INHALATION AEROSOL SOLUTION 2 puffs four times a day PRN cough ALBUTEROL SULFATE 74141045615 No Longer Active Piotr Daley DO Active NYSTATIN-TRIAMCINOLONE 481236-1.1 UNIT/GM-% EXTERNAL CREAM Apply to area BID NYSTATIN-TRIAMCINOLONE 88306525908 No Longer Active Alena Chavira BIOMEDICAL EQUIPMENT TECH Active PHISOHEX 3 % LIQD Use Directed HEXACHLOROPHENE 52351057673 No Longer Active Sandra [place] Active AZITHROMYCIN 250 MG ORAL TABLET 2 po qd x 1 day, then 1 po qd x 4 days 10/21 AZITHROMYCIN 54685099938 No Longer Active Katrina Rinaldi MD PhD Active AZITHROMYCIN 250 MG ORAL TABLET 2 po qd x 1 day, then 1 po qd x 4 days 10/16 AZITHROMYCIN 98826545127 No Longer Active Piotr Daley DO Active AZITHROMYCIN 500 MG INTRAVENOUS SOLUTION RECONSTITUTED 1 po q day AZITHROMYCIN 49007203914 No Longer Active Piotr Daley DO Active NYSTATIN-TRIAMCINOLONE 990660-3.1 UNIT/GM-% EXTERNAL CREAM apply bid NYSTATIN-TRIAMCINOLONE 16703568050 No Longer Active Piotr Daley DO Active IBUPROFEN 800 MG ORAL TABLET 1 po q 8 hours prn pain sparinly IBUPROFEN 10051622393 No Longer Active Piotr Daley DO Active VITAMIN D3 5000 UNIT ORAL CAPSULE 1 po daily CHOLECALCIFEROL 96275351924 Active Piotr Daley DO Active IBUPROFEN 800 MG ORAL TABLET 1 po q 8 hours prn pain sparinly IBUPROFEN 800 MG ORAL TABLET 584494 IBUPROFEN Inactive NYSTATIN-TRIAMCINOLONE 454613-4.1 UNIT/GM-% EXTERNAL CREAM apply bid NYSTATIN-TRIAMCINOLONE 854602-5.1 UNIT/GM-% EXTERNAL CREAM 0515005 NYSTATIN-TRIAMCINOLONE Inactive AZITHROMYCIN 500 MG INTRAVENOUS SOLUTION RECONSTITUTED 1 po q day AZITHROMYCIN 500 MG INTRAVENOUS SOLUTION RECONSTITUTED 15758823302 AZITHROMYCIN Inactive VENTOLIN HFA 108 (90 Base) MCG/ACT INHALATION AEROSOL SOLUTION 2 puffs four times a day PRN cough VENTOLIN HFA 108 (90 Base) MCG/ ACT INHALATION AEROSOL SOLUTION ALBUTEROL SULFATE Inactive LISINOPRIL 10 MG ORAL TABLET 1/2-1 tab po every other day LISINOPRIL 10 MG ORAL TABLET 484003 LISINOPRIL Inactive TUSSIONEX PENNKINETIC ER 10-8 MG/5ML ORAL SUSPENSION EXTENDED RELEASE 5ml po q12hr PRN Cough TUSSIONEX PENNKINETIC ER 10-8 MG/5ML ORAL SUSPENSION EXTENDED RELEASE HYDROCOD POLST-CHLORPHEN POLST Inactive PROMETHAZINE HCL 25 MG ORAL TABLET 1 four times a day as needed for nausea/ vomiting PROMETHAZINE HCL 25 MG ORAL TABLET 665036 PROMETHAZINE HCL Inactive PREDNISONE 20 MG ORAL TABLET 1 tablet twice daily for 2 days, then 1 tablet once daily for 2 days PREDNISONE 20 MG ORAL TABLET 903692 PREDNISONE Inactive WARFARIN SODIUM 4 MG ORAL TABLET 1 tab every evening WARFARIN SODIUM 4 MG ORAL TABLET 171342 WARFARIN SODIUM Inactive LOMOTIL 2.5-0.025 MG ORAL TABLET 1 to 2 four times a day as needed for diarrhea LOMOTIL 2.5-0.025 MG ORAL TABLET 3194665 DIPHENOXYLATE-ATROPINE Inactive IBUPROFEN 800 MG ORAL TABLET 1 tab every 8 hours as needed 07/12 IBUPROFEN 800 MG ORAL TABLET 791387 IBUPROFEN Inactive PREDNISONE 20 MG ORAL TABLET 2 tablets today, then 1 tablet days 2 through 4 PREDNISONE 20 MG ORAL TABLET 326385 PREDNISONE Inactive GABAPENTIN 300 MG ORAL CAPSULE 1 po q hs for nerve pain GABAPENTIN 300 MG ORAL CAPSULE 881444 GABAPENTIN Inactive TRAMADOL HCL 50 MG ORAL TABLET 1 po tid with ES Tylenol TRAMADOL HCL 50 MG ORAL TABLET 136697 TRAMADOL HCL Inactive PROAIR HFA 108 (90 BASE) MCG/ACT INHALATION AEROSOL SOLUTION 1-2 puffs four times a day as needed PROAIR HFA 108 (90 BASE) MCG/ACT INHALATION AEROSOL SOLUTION ALBUTEROL SULFATE Inactive AZITHROMYCIN 250 MG ORAL TABLET 2 po qd x 1 day, then 1 po qd x 4 days 10/16 AZITHROMYCIN 250 MG ORAL TABLET 256964 AZITHROMYCIN Inactive AZITHROMYCIN 250 MG ORAL TABLET 2 po qd x 1 day, then 1 po qd x 4 days 10/21 AZITHROMYCIN 250 MG ORAL TABLET 975459 AZITHROMYCIN Inactive NYSTATIN-TRIAMCINOLONE 650942-8.1 UNIT/GM-% EXTERNAL CREAM Apply to area BID NYSTATIN-TRIAMCINOLONE 233098-3.1 UNIT/GM-% EXTERNAL CREAM 7443021 NYSTATIN-TRIAMCINOLONE Inactive AZITHROMYCIN 250 MG ORAL TABLET 2 po qd x 1 day, then 1 po qd x 4 days 05/07 AZITHROMYCIN 250 MG ORAL TABLET 602300 AZITHROMYCIN Inactive AZITHROMYCIN 250 MG ORAL TABLET 2 po qd x 1 day, then 1 po qd x 4 days 10/13 AZITHROMYCIN 250 MG ORAL TABLET 035917 AZITHROMYCIN Inactive AZITHROMYCIN 250 MG ORAL TABLET 2 po qd x 1 day, then 1 po qd x 4 days 07/12 AZITHROMYCIN 250 MG ORAL TABLET 994647 AZITHROMYCIN Inactive PREDNISONE 20 MG ORAL TABLET 2 tabs daily for 3 days, 1 tab daily for 3 days, 1/2 tab daily for 2 days PREDNISONE 20 MG ORAL TABLET 526953 PREDNISONE Inactive DOXYCYCLINE HYCLATE 100 MG ORAL CAPSULE 1 cap by mouth BID x10 days DOXYCYCLINE HYCLATE 100 MG ORAL CAPSULE 7655431 DOXYCYCLINE HYCLATE Inactive Advance Directives Directive Description [...] Panel - Chemistry sodium, serum 141 mmol/L 922-211 4211/01/24 potassium, serum 4.3 mmol/L 3.5-5.2 chloride, serum [...] % 11.0-15.0 platelet count 172 THOUSAND/UL 10*3/mm3 955-906 0838/04/12 mean platelet volume 8.6 fL 7.5-12.5 Lab [...] 11.1-13.4 international normalized ratio (INR) 4.2 1.0-3.5 Lab Report: Prothrombin Time Hemochron - Coagulation prothrombin time (patient) 33.0 SECS s 18.9-24.9 Encounters Code Encounter Date Provider Facility CPT-45772 Level 3 Est. Patient 10:34:54 HEALTHCARE ADMINISTRATION INTERN Piotr Wilson Edi [facility] CPT-44729 Level 3 Est. Patient 17:10:19 CDT Nella Harris APRN [facility] CPT-22587 Level 3 Est. Patient 10:48:17 HEALTHCARE ADMINISTRATION INTERN Matthew Rangel MD [facility] CPT-95043 Level 4 Est. Patient 17:15:07 HEALTHCARE ADMINISTRATION INTERN Piotr Wilson Edi [facility] CPT-60057 Level 3 Est. Patient 12:46:13 HEALTHCARE ADMINISTRATION INTERN Piotr Wilson Dei [facility] CPT-84791 Level 3 Est. Patient 15:14:31 HEALTHCARE ADMINISTRATION INTERN Piotr Wilson Edi [facility] CPT-69103 Level 3 Est. Patient 09:20:13 HEALTHCARE ADMINISTRATION INTERN Piotr Wilson Edi [facility] CPT-48993 Level 3 Est. Patient 09:49:40 CDT Piotr Daley [facility] CPT-80416 Level 3 Est. Patient 16:28:[address] [facility] CPT-13769 Level 3 Est. Patient 12:41:58 HEALTHCARE ADMINISTRATION INTERN Piotr Daley [facility] CPT-80934 Level 3 Est. Patient 09:21:24 CDT Piotr Wilson Dei [facility] CPT-45649 Level 3 Est. Patient 09:21:11 CDT Piotr Katie Daley [facility] CPT-64513 Level 3 Est. Patient 11:16:29 HEALTHCARE ADMINISTRATION INTERN Piotr Daley [facility] CPT-96094 Level 3 Est. Patient 18:40:19 HEALTHCARE ADMINISTRATION INTERN Piotr Daley [facility] CPT-98549 Level 3 Est. Patient 19:30:[address] [facility] CPT-97024 Level 3 Est. Patient 22:06:44 CDT Katrina Rinaldi MD PhD [facility] CPT-60596 Level 3 Est. Patient 14:20:[address] [facility] CPT-83629 Level 3 Est. Patient 14:15:22 HEALTHCARE ADMINISTRATION INTERN Piotr Daley [facility] CPT-47096 Level 3 Est. Patient 20:19:57 HEALTHCARE ADMINISTRATION INTERN Piotr Daley [facility] CPT-81500 Level 3 Est. Patient 16:44:[address] [facility] CPT-41302 Level 3 Est. Patient 08:48:46 HEALTHCARE ADMINISTRATION INTERN Piotr Daley [facility] CPT-86795 Level 3 Est. Patient 21:01:[address] [facility] Procedures Code Procedure Name Date Entry Date Standard Description CPT-G0439 Subsequent Annual Wellness Exam 10:34:52 [facility]18[facility] BMP - LAB USE ONLY 17:19:11 HEALTHCARE ADMINISTRATION INTERN CPT-06144 PT/INR - LAB USE ONLY 17:19:10 [facility] C[facility]-56924 Venipuncture Draw Fee 17:19:10 HEALTHCARE ADMINISTRATION INTERN CPT-61181 PT/INR - LAB USE ONLY 08:12:25 [facility]-74688 Venipuncture Draw Fee 08:12:24 HEALTHCARE ADMINISTRATION INTERN CPT-79029 Venipuncture Draw Fee 11:31:07 HEALTHCARE ADMINISTRATION INTERN CPT-08782 TPSA - LAB USE ONLY 11:31:07 HEALTHCARE ADMINISTRATION INTERN CPT-10207 PT/INR - LAB USE ONLY 11:31:07 [facility] C[facility]-G0439 Subsequent Annual Wellness Exam 09:59:29 HEALTHCARE ADMINISTRATION INTERN CPT-11114 Creatinine - LAB USE ONLY 14:37:55 HEALTHCARE ADMINISTRATION INTERN CPT-84316 PT/INR - LAB USE ONLY 14:37:55 HEALTHCARE ADMINISTRATION INTERN CPT-35746 Venipuncture Draw Fee 14:37:55 HEALTHCARE ADMINISTRATION INTERN CPT-29574 LS spine comp w obliques - XRAY USE ONLY 12:59:25 HEALTHCARE ADMINISTRATION INTERN CPT-49969 PT/INR - LAB USE ONLY 13:49:20 CDT CPT-91904 Venipuncture Draw Fee 13:49:19 CDT CPT-45646 PT/INR - LAB USE ONLY 15:48:49 CDT CPT-60107 Venipuncture Draw Fee 15:48:49 CDT CPT-11593 Venipuncture Draw Fee 11:31:59 CDT CPT-45837 PT/INR - LAB USE ONLY 11:31:59 CDT CPT-26075 Venipuncture Draw Fee 13:29:15 CDT CPT-80047 Thoracolumbar AP/Lat 15:19:19 HEALTHCARE ADMINISTRATION INTERN CPT-G0438 Initial Annual Wellness Exam 12:18:54 HEALTHCARE ADMINISTRATION INTERN CPT-21428 Knee 3V 09:57:38 CDT CPT-OV Office Visit 15:45:01 HEALTHCARE ADMINISTRATION INTERN CPT-47775 Abd compl w upright 17:10:25 CDT
--- OUTSIDE RECORDS SUMMARY | 2018-07-18 07:38 | XMS REPORT | Clinical Summary ---
Author Author Admin, E Organization [employer] Address Unknown Phone Unavailable Allergies, Adverse Reactions, [...] of anticoagulants Seborrheic keratosis 702.19 Active Piotr Wilson Edi DO Other seborrheic keratosis Bronchitis-Acute 466.0 [...] neoplasm of prostate V10.46 Active Alina Meyers SAP DEVELOPER Personal history of malignant neoplasm of prostate Coronary artery disease 414.00 Active Alina Luigi SAP DEVELOPER Coronary atherosclerosis of unspecified type of vessel, [place] or graft Back pain, thoracic region, left 724.1 Inactive Piotr Katie Edi DO Pain in thoracic spine Thoracic back pain 724.5 Active Piotr Katie Edi DO Backache, unspecified Back [...] NDC Status Provider Patient Instruction WARFARIN SODIUM 5 MG TABS 1 tablet daily WARFARIN SODIUM 21896623069 Active Emelyn Goode RPT,RMA Active TRAMADOL HCL 50 MG TABS 1 po tid with ES Tylenol TRAMADOL HCL 21702840742 Active Piotr Daley DO Active PREDNISONE 20 MG TAB 2 tablets today, then 1 tablet days 2 through 4 PREDNISONE 56375174449 No Longer Active Piotr Daley DO Active AZITHROMYCIN 250 MG TABS 2 po qd x 1 day, then 1 po qd x 4 days AZITHROMYCIN 32206509788 No Longer Active Piotr Daley DO Active IBUPROFEN 800 MG TABS 1 tab every 8 hours as needed IBUPROFEN 94331515128 No Longer Active Piotr Daley DO Active LOMOTIL 2.5-0.025 MG TAB 1 to 2 four times a day as needed for diarrhea 10/13 DIPHENOXYLATE-ATROPINE 15484946992 No Longer Active Piotr Daley DO Active WARFARIN SODIUM 4 MG TABS 1 tab every evening WARFARIN SODIUM 26657195844 No Longer Active Piotr Daley DO Active PREDNISONE 20 MG TAB 1 tablet twice daily for 2 days, then 1 tablet once daily for 2 days PREDNISONE 32005399879 No Longer Active Piotr Daley DO Active PROMETHAZINE HCL 25 MG TABS 1 four times a day as needed for nausea/vomiting PROMETHAZINE HCL 09999978683 No Longer Active Piotr Daley DO Active TUSSIONEX PENNKINETIC ER 10-8 MG/5ML LQCR 5ml po q12hr PRN Cough HYDROCOD POLST-CHLORPHEN POLST 30111414272 No Longer Active Piotr W Edi DO Active AZITHROMYCIN 250 MG TABS 2 po qd x 1 day, then 1 po qd x 4 days AZITHROMYCIN 12559359754 No Longer Active Piotr Daley DO Active AZITHROMYCIN 250 MG TABS 2 po qd x 1 day, then 1 po qd x 4 days AZITHROMYCIN 62882045155 No Longer Active Piotr Dlaey DO Active LISINOPRIL-HYDROCHLOROTHIAZIDE 10-12.5 MG TABS 1 tab by mouth daily LISINOPRIL-HYDROCHLOROTHIAZIDE 05958410558 Active Hilary Ma MA Active LISINOPRIL 10 MG TABS 1/2-1 tab po every other day LISINOPRIL 21602055860 No Longer Active Piotr Daley DO Active VENTOLIN HFA 108 (90 BASE) MCG/ACT AERS 2 puffs four times a day PRN cough ALBUTEROL SULFATE 07195305224 No Longer Active Piotr Daley DO Active NYSTATIN-TRIAMCINOLONE 518499-0.1 UNIT/GM-% CREA Apply to area BID NYSTATIN-TRIAMCINOLONE 31137334008 No Longer Active Alena Oswaldum HORSE STUD MANAGER Active PHISOHEX 3 % LIQD Use Directed HEXACHLOROPHENE 68664641210 No Longer Active Sandra [place] Active AZITHROMYCIN 250 MG TABS 2 po qd x 1 day, then 1 po qd x 4 days AZITHROMYCIN 83494299791 No Longer Active Katrina Rinaldi MD PhD Active AZITHROMYCIN 250 MG TABS 2 po qd x 1 day, then 1 po qd x 4 days AZITHROMYCIN 97375929144 No Longer Active Piotr Daley DO Active AZITHROMYCIN 500 MG SOLR 1 po q day AZITHROMYCIN 74313517426 No Longer Active Piotr Daley DO Active NYSTATIN-TRIAMCINOLONE 428407-2.1 UNIT/GM-% CREA apply bid 08/19 NYSTATIN-TRIAMCINOLONE 94595337789 No Longer Active Piotr Daley DO Active IBUPROFEN 800 MG TABS 1 po q 8 hours prn pain sparinly IBUPROFEN 09451259574 No Longer Active Piotr Daley DO Active VITAMIN D3 5000 UNIT CAPS 1 po daily CHOLECALCIFEROL 02019449097 Active Piotr Daley DO Active IBUPROFEN 800 MG TABS 1 po q 8 hours prn pain sparinly IBUPROFEN 800 MG TABS 084565 IBUPROFEN Inactive NYSTATIN-TRIAMCINOLONE 736692-3.1 UNIT/GM-% CREA apply bid 08/19 NYSTATIN-TRIAMCINOLONE 897196-3.1 UNIT/GM-% CREA 6750125 NYSTATIN- TRIAMCINOLONE Inactive AZITHROMYCIN 500 MG SOLR 1 po q day AZITHROMYCIN 500 MG SOLR 99704531538 AZITHROMYCIN Inactive VENTOLIN HFA 108 (90 BASE) MCG/ACT AERS 2 puffs four times a day PRN cough VENTOLIN HFA 108 (90 BASE) MCG/ACT AERS ALBUTEROL SULFATE Inactive LISINOPRIL 10 MG TABS 1/2-1 tab po every other day LISINOPRIL 10 MG TABS 807346 LISINOPRIL Inactive TUSSIONEX PENNKINETIC ER 10-8 MG/5ML LQCR 5ml po q12hr PRN Cough TUSSIONEX PENNKINETIC ER 10-8 MG/5ML LQCR HYDROCOD POLST- CHLORPHEN POLST Inactive PROMETHAZINE HCL 25 MG TABS 1 four times a day as needed for nausea/vomiting PROMETHAZINE HCL 25 MG TABS 586363 PROMETHAZINE HCL Inactive PREDNISONE 20 MG TAB 1 tablet twice daily for 2 days, then 1 tablet once daily for 2 days PREDNISONE 20 MG TAB 808099 PREDNISONE Inactive WARFARIN SODIUM 4 MG TABS 1 tab every evening WARFARIN SODIUM 4 MG TABS 950124 WARFARIN SODIUM Inactive LOMOTIL 2.5-0.025 MG TAB 1 to 2 four times a day as needed for diarrhea 10/13 LOMOTIL 2.5-0.025 MG TAB 8834579 DIPHENOXYLATE-ATROPINE Inactive IBUPROFEN 800 MG TABS 1 tab every 8 hours as needed IBUPROFEN 800 MG TABS 271447 IBUPROFEN Inactive PREDNISONE 20 MG TAB 2 tablets today, then 1 tablet days 2 through 4 PREDNISONE 20 MG TAB 851299 PREDNISONE Inactive AZITHROMYCIN 250 MG TABS 2 po qd x 1 day, then 1 po qd x 4 days AZITHROMYCIN 250 MG TABS 7323959 AZITHROMYCIN Inactive AZITHROMYCIN 250 MG TABS 2 po qd x 1 day, then 1 po qd x 4 days AZITHROMYCIN 250 MG TABS 0387776 AZITHROMYCIN Inactive NYSTATIN-TRIAMCINOLONE 093268-9.1 UNIT/GM-% CREA Apply to area BID NYSTATIN-TRIAMCINOLONE 795208-9.1 UNIT/GM-% CREA 4903244 NYSTATIN-TRIAMCINOLONE Inactive AZITHROMYCIN 250 MG TABS 2 po qd x 1 day, then 1 po qd x 4 days AZITHROMYCIN 250 MG TABS 9679431 AZITHROMYCIN Inactive AZITHROMYCIN 250 MG TABS 2 po qd x 1 day, then 1 po qd x 4 days AZITHROMYCIN 250 MG TABS 1941984 AZITHROMYCIN Inactive AZITHROMYCIN 250 MG TABS 2 po qd x 1 day, then 1 po qd x 4 days AZITHROMYCIN 250 MG TABS 3482084 AZITHROMYCIN Inactive Advance Directives Directive Description Start [...] E&M - 3141-9 226 [lb_av] Weight Measured Diagnostic Results Date Name [...] count 210 10^3/MM^3 10*3/mm3 142-424 Lab Report: Comp. Metabolic Panel - Chemistry sodium, serum 141 mmol/L 759-255 1924/06/28 carbon dioxide, venous blood 31.0 mmol/L 21.0-32.0 potassium, serum 4.2 mmol/L 3.5-5.2 chloride, serum 104 mmol/L 98-107 blood glucose 94 mg/dL 65-110 urea nitrogen, blood 15 mg/dL 7-18 creatinine, serum 1.08 mg/dL 0.55-1.30 alanine aminotransferase (SGPT), serum 25 U/L 12-78 aspartate aminotransferase (SGOT), serum 26 U/L 15-37 calcium, serum 8.7 mg/dL 8.5-10.1 bilirubin, serum, total 0.50 mg/dL 0.00-1.00 Lab Report: MICROALB/CREAT W/RATIO, Prothrombin Time - Chemistry albumin/creatinine ratio, urine < 30 mg/g mg/g{creat} 0-29 Lab Report: MICROALB/CREAT W/RATIO, Prothrombin Time - Coagulation prothrombin time (patient) 18.4 SECS s 11.1-13.4 international normalized ratio (INR) 2.1 1.0-3.5 Lab Report: MICROALB/CREAT W/RATIO, Prothrombin Time - Lab microalbumin, urine 10 0-19 Lab Report: Prothrombin Time - Coagulation prothrombin time (patient) 22.8 SECS s 11.1-13.4 international normalized ratio (INR) 3.0 1.0-3.5 prothrombin time (patient) 20.8 SECS s 11.1-13.4 international normalized ratio (INR) 2.5 1.0-3.5 prothrombin time (patient) 19.8 SECS s 11.1-13.4 international normalized ratio (INR) 2.3 1.0-3.5 prothrombin time (patient) 16.6 SECS s 11.1-13.4 international normalized ratio (INR) 1.9 1.0-3.5 prothrombin time (patient) 18.3 SECS s 11.1-13.4 international normalized ratio (INR) 2.3 1.0-3.5 prothrombin time (patient) 18.1 SECS s 11.1-13.4 international normalized ratio (INR) 2.2 1.0-3.5 prothrombin time (patient) 15.4 SECS s 11.1-13.4 international normalized ratio (INR) 1.7 1.0-3.5 prothrombin time (patient) 18.9 SECS s 11.1-13.4 international normalized ratio (INR) 2.4 1.0-3.5 Lab Report: Prothrombin Time, Prostatic Specific Ag - Chemistry prostate specific antigen 0.04 ng/mL 0.00-4.00 Lab Report: Prothrombin Time, Prostatic Specific Ag - Coagulation prothrombin time (patient) 16.6 SECS s 11.1-13.4 international normalized ratio (INR) 1.9 1.0-3.5 Lab Report: UADIP W/MICRO, AUTO - Chemistry RBC, urine, dipstick Negative Negative protein, total urine random Negative mg/dL Negative Lab Report: UADIP W/MICRO, AUTO - Urinalysis glucose, urine, semiquantitative Negative Negative ketones, urine, by test strip Negative Negative bilirubin, urine Negative Negative urine color Yellow Colorless;Lightyellow;Straw;Yellow appearance, urine Clear Clear specific gravity, urine 1.025 1.000-1.030 pH, urine, semiquantitative 6.0 5.0-8.5 urobilinogen, urine, semiquantitative (dipstick) 0.2 Normal leukocyte esterase, urine, by dipstick Negative Negative nitrite, urine, semiquantitative Negative Negative Encounters Code Encounter Date Provider Facility CPT-72452 Level 3 Est. Patient 15:14:31 SLITTER CUT OFF OPERATOR Piotr Daley DO [facility] CPT-48365 Level 3 Est. Patient 09:20:13 SLITTER CUT OFF OPERATOR Piotr Daley [facility] CPT-41307 Level 3 Est. Patient 09:49:40 CDT Piotr Daley [facility] CPT-74230 Level 3 Est. Patient 16:28:11 CDT Piotr Daley [facility] CPT-91927 Level 3 Est. Patient 12:41:58 SLITTER CUT OFF OPERATOR Piotr aDley [facility] CPT-05889 Level 3 Est. Patient 09:21:24 CDT Piotr Daley [facility] CPT-85019 Level 3 Est. Patient 09:21:11 CDT Piotr Daley [facility] CPT-46087 Level 3 Est. Patient 11:16:29 SLITTER CUT OFF OPERATOR Piotr Daley [facility] CPT-80833 Level 3 Est. Patient 18:40:19 SLITTER CUT OFF OPERATOR Piotr Daley [facility] CPT-70344 Level 3 Est. Patient 19:30:50 CDT Piotr Daley [facility] CPT-45297 Level 3 Est. Patient 22:06:44 CDT Katrina Rinaldi MD [facility] CPT-94968 Level 3 Est. Patient 14:20:00 CDT Piotr Daley [facility] CPT-73774 Level 3 Est. Patient 14:15:22 SLITTER CUT OFF OPERATOR Piotr Daley [facility] CPT-08998 Level 3 Est. Patient 20:19:57 SLITTER CUT OFF OPERATOR Piotr Daley [facility] CPT-56548 Level 3 Est. Patient 16:44:32 CDT Piotr Daley [facility] CPT-29219 Level 3 Est. Patient 08:48:46 SLITTER CUT OFF OPERATOR Piotr Daley [facility] CPT-75554 Level 3 Est. Patient 21:01:21 CDT Piotr Daley [facility] Procedures Code Procedure Name Date Entry Date Standard Description CPT-25963 PT/INR - LAB USE ONLY 15:48:49 CDT CPT-02641 Venipuncture Draw Fee 15:48:49 CDT CPT-11611 Venipuncture Draw Fee 11:31:59 CDT CPT-24929 PT/INR - LAB USE ONLY 11:31:59 CDT CPT-09990 Venipuncture Draw Fee 13:29:15 CDT CPT-60847 Thoracolumbar AP/Lat 15:19:19 SLITTER CUT OFF OPERATOR CPT-G0438 Initial Annual Wellness Exam 12:18:54 SLITTER CUT OFF OPERATOR CPT-54743 Knee 3V 09:57:38 CDT CPT-OV Office Visit 15:45:01 SLITTER CUT OFF OPERATOR CPT-15484 Abd compl w upright 17:10:25 CDT
--- OUTSIDE RECORDS SUMMARY | 2018-07-18 07:39 | XMS REPORT | Clinical Summary ---
Author Author Admin, Isidra Organization [employer] Address Unknown Phone Unavailable Allergies, Adverse Reactions, [...] Knee pain, left 719.46 Active Piotr Katie Edi DO Pain in joint involving lower leg Health maintenance exam V70.0 Active Adriane Rojo LPN Routine general medical examination at a health care facility Actinic keratoses 702.0 Active Piotr Wilson Edi DO Actinic keratosis Personal history of malignant neoplasm of prostate V10.46 Active Alina Meyers TRAINING ASSOCIATE Personal history of malignant neoplasm of prostate Coronary artery disease 414.00 Active Alina Luigi ARISTIDES Coronary atherosclerosis of unspecified type of vessel, [place] or graft Back pain, thoracic region, left 724.1 Inactive Piotr Daley DO Pain in thoracic spine Thoracic back pain 724.5 Active Piotr Wilson Edi DO Backache, unspecified Back pain lumbar 724.2 Active Piotr Daley DO Lumbago Peripheral neuropathy, lower extremity, left 356.9 Active 02/19 Piotr W Edi DO Unspecified hereditary and idiopathic peripheral neuropathy Insect bite 919.4 Active Nella Harris TRAINING ASSOCIATE Insect bite, nonvenomous, of other, multiple, and unspecified sites, without mention of infection Pruritus 698.9 Active Nella Harris TRAINING ASSOCIATE Unspecified pruritic disorder FLANK PAIN, RIGHT ICD-789.09 Inactive Katrina Rinaldi [...] Generic Name NDC Status Provider Patient Instruction DOXYCYCLINE HYCLATE 100 MG CAP 1 cap by mouth BID x10 days 10/01 DOXYCYCLINE HYCLATE 80886706846 No Longer Active Nella Harris APRN Active WARFARIN SODIUM 5 MG TABS 1 tablet daily M-S, 1/2 tab on Heart WARFARIN SODIUM 41274100116 Active Anahy Loja Active PROAIR HFA 108 (90 BASE) MCG/ACT AERS 1-2 puffs four times a day as needed ALBUTEROL SULFATE 85638314506 Active Matthew Rangel MD Active PREDNISONE 20 MG TAB 2 tabs daily for 3 days, 1 tab daily for 3 days, 1/2 tab daily for 2 days PREDNISONE 46631896247 No Longer Active Matthew Rangel MD Active TRAMADOL HCL 50 MG TABS 1 po tid with ES Tylenol TRAMADOL HCL 23431875517 No Longer Active Matthew Rangel MD Active GABAPENTIN 300 MG CAPS 1 po q hs for nerve pain GABAPENTIN 28788887869 No Longer Active Matthew Rangel MD Active PREDNISONE 20 MG TAB 2 tablets today, then 1 tablet days 2 through 4 PREDNISONE 28725029006 No Longer Active Piotr Daley DO Active AZITHROMYCIN 250 MG TABS 2 po qd x 1 day, then 1 po qd x 4 days AZITHROMYCIN 12891236988 No Longer Active Piotr Daley DO Active IBUPROFEN 800 MG TABS 1 tab every 8 hours as needed IBUPROFEN 80008740593 No Longer Active Piotr Daley DO Active LOMOTIL 2.5-0.025 MG TAB 1 to 2 four times a day as needed for diarrhea 10/13 DIPHENOXYLATE-ATROPINE 17028127859 No Longer Active Piotr Daley DO Active WARFARIN SODIUM 4 MG TABS 1 tab every evening WARFARIN SODIUM 82855033391 No Longer Active Piotr Daley DO Active PREDNISONE 20 MG TAB 1 tablet twice daily for 2 days, then 1 tablet once daily for 2 days PREDNISONE 59024566015 No Longer Active Piotr Daley DO Active PROMETHAZINE HCL 25 MG TABS 1 four times a day as needed for nausea/vomiting PROMETHAZINE HCL 76640260141 No Longer Active Piotr Daley DO Active TUSSIONEX PENNKINETIC ER 10-8 MG/5ML LQCR 5ml po q12hr PRN Cough HYDROCOD POLST-CHLORPHEN POLST 94998913348 No Longer Active Piotr Daley DO Active AZITHROMYCIN 250 MG TABS 2 po qd x 1 day, then 1 po qd x 4 days AZITHROMYCIN 67487952551 No Longer Active Piotr Daley DO Active AZITHROMYCIN 250 MG TABS 2 po qd x 1 day, then 1 po qd x 4 days AZITHROMYCIN 54943531089 No Longer Active Piotr Daley DO Active LISINOPRIL-HYDROCHLOROTHIAZIDE 10-12.5 MG TABS 1 tab by mouth daily LISINOPRIL-HYDROCHLOROTHIAZIDE 18851635942 Active Catalina Freitas Active LISINOPRIL 10 MG TABS 1/2-1 tab po every other day LISINOPRIL 31993926625 No Longer Active Piotr W Edi DO Active VENTOLIN HFA 108 (90 BASE) MCG/ACT AERS 2 puffs four times a day PRN cough ALBUTEROL SULFATE 76268953804 No Longer Active Piotr Daley DO Active NYSTATIN-TRIAMCINOLONE 670482-4.1 UNIT/GM-% CREA Apply to area BID NYSTATIN-TRIAMCINOLONE 67045355693 No Longer Active Alena Oswaldum NURSING STAFFING COORDINATOR Active PHISOHEX 3 % LIQD Use Directed HEXACHLOROPHENE 29581123832 No Longer Active Sandra Derby Active AZITHROMYCIN 250 MG TABS 2 po qd x 1 day, then 1 po qd x 4 days AZITHROMYCIN 77401073537 No Longer Active Katrina Rinaldi MD PhD Active AZITHROMYCIN 250 MG TABS 2 po qd x 1 day, then 1 po qd x 4 days AZITHROMYCIN 75581418939 No Longer Active Piotr Daley DO Active AZITHROMYCIN 500 MG SOLR 1 po q day AZITHROMYCIN 14346009957 No Longer Active Piotr Daley DO Active NYSTATIN-TRIAMCINOLONE 993647-3.1 UNIT/GM-% CREA apply bid 08/19 NYSTATIN-TRIAMCINOLONE 77340005146 No Longer Active Piotr Daley DO Active IBUPROFEN 800 MG TABS 1 po q 8 hours prn pain sparinly IBUPROFEN 24436937815 No Longer Active Piotr Daley DO Active VITAMIN D3 5000 UNIT CAPS 1 po daily CHOLECALCIFEROL 68425419782 Active Piotr Daley DO Active IBUPROFEN 800 MG TABS 1 po q 8 hours prn pain sparinly IBUPROFEN 800 MG TABS 031662 IBUPROFEN Inactive NYSTATIN-TRIAMCINOLONE 162542-0.1 UNIT/GM-% CREA apply bid 08/19 NYSTATIN-TRIAMCINOLONE 531459-4.1 UNIT/GM-% CREA 0458505 NYSTATIN- TRIAMCINOLONE Inactive AZITHROMYCIN 500 MG SOLR 1 po q day AZITHROMYCIN 500 MG SOLR 67410492353 AZITHROMYCIN Inactive VENTOLIN HFA 108 (90 BASE) MCG/ACT AERS 2 puffs four times a day PRN cough VENTOLIN HFA 108 (90 BASE) MCG/ACT AERS ALBUTEROL SULFATE Inactive LISINOPRIL 10 MG TABS 1/2-1 tab po every other day LISINOPRIL 10 MG TABS 816359 LISINOPRIL Inactive TUSSIONEX PENNKINETIC ER 10-8 MG/5ML LQCR 5ml po q12hr PRN Cough TUSSIONEX PENNKINETIC ER 10-8 MG/5ML LQCR HYDROCOD POLST- CHLORPHEN POLST Inactive PROMETHAZINE HCL 25 MG TABS 1 four times a day as needed for nausea/vomiting PROMETHAZINE HCL 25 MG TABS 127505 PROMETHAZINE HCL Inactive PREDNISONE 20 MG TAB 1 tablet twice daily for 2 days, then 1 tablet once daily for 2 days PREDNISONE 20 MG TAB 549768 PREDNISONE Inactive WARFARIN SODIUM 4 MG TABS 1 tab every evening WARFARIN SODIUM 4 MG TABS 163793 WARFARIN SODIUM Inactive LOMOTIL 2.5-0.025 MG TAB 1 to 2 four times a day as needed for diarrhea 10/13 LOMOTIL 2.5-0.025 MG TAB 2760511 DIPHENOXYLATE-ATROPINE Inactive IBUPROFEN 800 MG TABS 1 tab every 8 hours as needed IBUPROFEN 800 MG TABS 759239 IBUPROFEN Inactive PREDNISONE 20 MG TAB 2 tablets today, then 1 tablet days 2 through 4 PREDNISONE 20 MG TAB 573049 PREDNISONE Inactive GABAPENTIN 300 MG CAPS 1 po q hs for nerve pain GABAPENTIN 300 MG CAPS 222996 GABAPENTIN Inactive TRAMADOL HCL 50 MG TABS 1 po tid with ES Tylenol TRAMADOL HCL 50 MG TABS 369545 TRAMADOL HCL Inactive AZITHROMYCIN 250 MG TABS 2 po qd x 1 day, then 1 po qd x 4 days AZITHROMYCIN 250 MG TABS 517854 AZITHROMYCIN Inactive AZITHROMYCIN 250 MG TABS 2 po qd x 1 day, then 1 po qd x 4 days AZITHROMYCIN 250 MG TABS 116787 AZITHROMYCIN Inactive NYSTATIN-TRIAMCINOLONE 073540-0.1 UNIT/GM-% CREA Apply to area BID NYSTATIN-TRIAMCINOLONE 751656-4.1 UNIT/GM-% CREA 5969908 NYSTATIN-TRIAMCINOLONE Inactive AZITHROMYCIN 250 MG TABS 2 po qd x 1 day, then 1 po qd x 4 days AZITHROMYCIN 250 MG TABS 234752 AZITHROMYCIN Inactive AZITHROMYCIN 250 MG TABS 2 po qd x 1 day, then 1 po qd x 4 days AZITHROMYCIN 250 MG TABS 103402 AZITHROMYCIN Inactive AZITHROMYCIN 250 MG TABS 2 po qd x 1 day, then 1 po qd x 4 days AZITHROMYCIN 250 MG TABS 046836 AZITHROMYCIN Inactive PREDNISONE 20 MG TAB 2 tabs daily for 3 days, 1 tab daily for 3 days, 1/2 tab daily for 2 days PREDNISONE 20 MG TAB 945551 PREDNISONE Inactive DOXYCYCLINE HYCLATE 100 MG CAP 1 cap by mouth BID x10 days 10/01 DOXYCYCLINE HYCLATE 100 MG CAP 1363773 DOXYCYCLINE HYCLATE Inactive Advance Directives Directive Description Start Date LIVING WILL LIVING WILL Vital Signs Date Name Value Unit Range Description blood pressure, diastolic 71 mm[Hg] BP phan [...] temperature weight E&M 223 [lb_av] Weight Measured blood pressure, diastolic 73 mm[Hg] BP phan blood pressure, systolic 134 mm[Hg] BP sys pulse rate E&M 60 /min Heart rate temperature E&M 96.8 [degF] Body temperature weight E&M 224 [lb_av] Weight Measured Diagnostic Results Date Name Value Unit Range Description Lab Report: Basic Metabolic Panel - Chemistry sodium, serum 141 mmol/L 517-642 7979/01/24 potassium, serum 4.3 mmol/L 3.5-5.2 chloride, serum [...] % 11.0-15.0 platelet count 172 THOUSAND/UL 10*3/mm3 651-844 1834/04/12 mean platelet volume 8.6 fL 7.5-12.5 Lab Report: Creatinine - Chemistry creatinine, serum 1.07 mg/dL 0.55-1.30 Lab Report: Prostatic Specific Ag, Prothrombin Time [...] ratio (INR) 3.0 1.0-3.5 prothrombin time (patient) 23.8 SECS s 11.1-13.4 international normalized ratio (INR) 3.2 1.0-3.5 Lab Report: Prothrombin Time Hemochron - Coagulation prothrombin time (patient) 33.0 SECS s 18.9-24.9 Encounters Code Encounter Date Provider Facility CPT-76812 Level 3 Est. Patient 17:10:19 MALACHI Harris TRAINING ASSOCIATE [facility] CPT-74429 Level 3 Est. Patient 10:48:17 INVESTOR RELATIONS ASSOCIATE Matthew Rangel MD [facility] CPT-14983 Level 4 Est. Patient 17:15:07 INVESTOR RELATIONS ASSOCIATE Piotr Daley [facility] CPT-56987 Level 3 Est. Patient 12:46:13 INVESTOR RELATIONS ASSOCIATE Piotr Daley [facility] CPT-57283 Level 3 Est. Patient 15:14:31 INVESTOR RELATIONS ASSOCIATE Piotr Daley [facility] CPT-55513 Level 3 Est. Patient 09:20:13 INVESTOR RELATIONS ASSOCIATE Piotr Daley [facility] CPT-25777 Level 3 Est. Patient 09:49:40 CDT Piotr Daley [facility] CPT-69928 Level 3 Est. Patient 16:28:11 CDT Piotr Daley [facility] CPT-89816 Level 3 Est. Patient 12:41:58 INVESTOR RELATIONS ASSOCIATE Piotr Daley [facility] CPT-67660 Level 3 Est. Patient 09:21:24 CDT Piotr Daley [facility] CPT-93623 Level 3 Est. Patient 09:21:11 CDT Piotr Daley [facility] CPT-32291 Level 3 Est. Patient 11:16:29 INVESTOR RELATIONS ASSOCIATE Piotr Daley [facility] CPT-23480 Level 3 Est. Patient 18:40:19 INVESTOR RELATIONS ASSOCIATE Piotr Daley [facility] CPT-34513 Level 3 Est. Patient 19:30:50 CDT Piotr Daley [facility] CPT-68907 Level 3 Est. Patient 22:06:44 CDT Katrina Rinaldi MD PhD [facility] CPT-02198 Level 3 Est. Patient 14:20:00 CDT Piotr Daley [facility] CPT-77356 Level 3 Est. Patient 14:15:22 INVESTOR RELATIONS ASSOCIATE Piotr Daley [facility] CPT-72966 Level 3 Est. Patient 20:19:57 INVESTOR RELATIONS ASSOCIATE Piotr Daley [facility] CPT-41219 Level 3 Est. Patient 16:44:32 CDT Piotr Daley [facility] CPT-09388 Level 3 Est. Patient 08:48:46 INVESTOR RELATIONS ASSOCIATE Piotr Daley [facility] CPT-74884 Level 3 Est. Patient 21:01:21 CDT Piotr Daley [facility] Procedures Code Procedure Name Date Entry Date Standard Description CPT-23015 BMP - LAB USE ONLY 17:19:11 INVESTOR RELATIONS ASSOCIATE CPT-90366 PT/INR - LAB USE ONLY 17:19:10 INVESTOR RELATIONS ASSOCIATE CPT-26424 Venipuncture Draw Fee 17:19:10 INVESTOR RELATIONS ASSOCIATE CPT-63060 PT/INR - LAB USE ONLY 08:12:25 INVESTOR RELATIONS ASSOCIATE CPT-99314 Venipuncture Draw Fee 08:12:24 INVESTOR RELATIONS ASSOCIATE CPT-77587 Venipuncture Draw Fee 11:31:07 INVESTOR RELATIONS ASSOCIATE CPT-00006 TPSA - LAB USE ONLY 11:31:07 INVESTOR RELATIONS ASSOCIATE CPT-93300 PT/INR - LAB USE ONLY 11:31:07 INVESTOR RELATIONS ASSOCIATE CPT-G0439 [facility] Annual Wellness Exam 09:59:29 INVESTOR RELATIONS ASSOCIATE CPT-89033 Creatinine - LAB USE ONLY 14:37:55 INVESTOR RELATIONS ASSOCIATE CPT-18779 PT/INR - LAB USE ONLY 14:37:55 INVESTOR RELATIONS ASSOCIATE CPT-66593 Venipuncture Draw Fee 14:37:55 INVESTOR RELATIONS ASSOCIATE CPT-85191 LS spine comp w obliques - XRAY USE ONLY 12:59:25 INVESTOR RELATIONS ASSOCIATE CPT-36861 PT/INR - LAB USE ONLY 13:49:20 CDT CPT-50011 Venipuncture Draw Fee 13:49:19 CDT CPT-06830 PT/INR - LAB USE ONLY 15:48:49 CDT CPT-22412 Venipuncture Draw Fee 15:48:49 CDT CPT-34023 Venipuncture Draw Fee 11:31:59 CDT CPT-17766 PT/INR - LAB USE ONLY 11:31:59 CDT CPT-58341 Venipuncture Draw Fee 13:29:15 CDT CPT-07073 Thoracolumbar AP/Lat 15:19:19 INVESTOR RELATIONS ASSOCIATE CPT-G0438 Initial Annual Wellness Exam 12:18:54 INVESTOR RELATIONS ASSOCIATE CPT-50103 Knee 3V 09:57:38 CDT CPT-OV Office Visit 15:45:01 INVESTOR RELATIONS ASSOCIATE CPT-77572 Abd compl w upright 17:10:25 CDT
--- OUTSIDE RECORDS SUMMARY | 2018-07-18 07:40 | XMS REPORT | Clinical Summary ---
Author Author Admin, Isidra Organization [employer] Address Unknown Phone Unavailable Allergies, Adverse Reactions, [...] Coronary atherosclerosis of unspecified type of vessel, [place] or graft Back pain, thoracic region, left 724.1 Inactive Piotr Katie Edi DO Pain in thoracic spine Thoracic back pain 724.5 Active Piotr Katie Edi DO Backache, unspecified Back pain lumbar 724.2 Active Piotr Katie Edi DO Lumbago Peripheral neuropathy, [...] pain, thoracic region, left ICD-724.1 Inactive Piotr Katie Daley DO Medication List Medication Instructions Start Date Stop Date Generic Name NDC Status Provider Patient Instruction GABAPENTIN 300 MG CAPS 1 po q hs for nerve pain GABAPENTIN 36083638398 Active Piotr Daley DO Active WARFARIN SODIUM 5 MG TABS 1 tablet daily WARFARIN SODIUM 14677935879 Active Simi Meyers Active TRAMADOL HCL 50 MG TABS 1 po tid with ES Tylenol TRAMADOL HCL 70862993888 Active Piotr Daley DO Active PREDNISONE 20 MG TAB 2 tablets today, then 1 tablet days 2 through 4 PREDNISONE 68352751611 No Longer Active Piotr Daley DO Active AZITHROMYCIN 250 MG TABS 2 po qd x 1 day, then 1 po qd x 4 days AZITHROMYCIN 88033319296 No Longer Active Piotr Daley DO Active IBUPROFEN 800 MG TABS 1 tab every 8 hours as needed IBUPROFEN 72143649009 No Longer Active Piotr Daley DO Active LOMOTIL 2.5-0.025 MG TAB 1 to 2 four times a day as needed for diarrhea 10/13 DIPHENOXYLATE-ATROPINE 71576264071 No Longer Active Piotr Daley DO Active WARFARIN SODIUM 4 MG TABS 1 tab every evening WARFARIN SODIUM 58989654516 No Longer Active Piotr Daley DO Active PREDNISONE 20 MG TAB 1 tablet twice daily for 2 days, then 1 tablet once daily for 2 days PREDNISONE 59866905403 No Longer Active Piotr Daley DO Active PROMETHAZINE HCL 25 MG TABS 1 four times a day as needed for nausea/vomiting PROMETHAZINE HCL 90900772910 No Longer Active Piotr Daley DO Active TUSSIONEX PENNKINETIC ER 10-8 MG/5ML LQCR 5ml po q12hr PRN Cough HYDROCOD POLST-CHLORPHEN POLST 39414239047 No Longer Active Piotr Daley DO Active AZITHROMYCIN 250 MG TABS 2 po qd x 1 day, then 1 po qd x 4 days AZITHROMYCIN 21893554715 No Longer Active Piotr Daley DO Active AZITHROMYCIN 250 MG TABS 2 po qd x 1 day, then 1 po qd x 4 days AZITHROMYCIN 54031574853 No Longer Active Piotr Daley DO Active LISINOPRIL-HYDROCHLOROTHIAZIDE 10-12.5 MG TABS 1 tab by mouth daily LISINOPRIL-HYDROCHLOROTHIAZIDE 22678562188 Active Hilary Ma MA Active LISINOPRIL 10 MG TABS 1/2-1 tab po every other day LISINOPRIL 60143801423 No Longer Active Piotr Daley DO Active VENTOLIN HFA 108 (90 BASE) MCG/ACT AERS 2 puffs four times a day PRN cough ALBUTEROL SULFATE 35181733877 No Longer Active Piotr Daley DO Active NYSTATIN-TRIAMCINOLONE 025868-5.1 UNIT/GM-% CREA Apply to area BID NYSTATIN-TRIAMCINOLONE 04847446546 No Longer Active Alena Chavira TRAINING AND DEVELOPMENT DIRECTOR Active PHISOHEX 3 % LIQD Use Directed HEXACHLOROPHENE 47011256890 No Longer Active Sandra [place] Active AZITHROMYCIN 250 MG TABS 2 po qd x 1 day, then 1 po qd x 4 days AZITHROMYCIN 77636404555 No Longer Active Katrina Rinaldi MD PhD Active AZITHROMYCIN 250 MG TABS 2 po qd x 1 day, then 1 po qd x 4 days AZITHROMYCIN 90950531688 No Longer Active Piotr Daley DO Active AZITHROMYCIN 500 MG SOLR 1 po q day AZITHROMYCIN 10532578821 No Longer Active Piotr Daley DO Active NYSTATIN-TRIAMCINOLONE 353744-5.1 UNIT/GM-% CREA apply bid 08/19 NYSTATIN-TRIAMCINOLONE 24225549598 No Longer Active Piotr Daley DO Active IBUPROFEN 800 MG TABS 1 po q 8 hours prn pain sparinly IBUPROFEN 89644182615 No Longer Active Piotr Daley DO Active VITAMIN D3 5000 UNIT CAPS 1 po daily CHOLECALCIFEROL 72638195250 Active Piotr Daley DO Active IBUPROFEN 800 MG TABS 1 po q 8 hours prn pain sparinly IBUPROFEN 800 MG TABS 266905 IBUPROFEN Inactive NYSTATIN-TRIAMCINOLONE 691192-5.1 UNIT/GM-% CREA apply bid 08/19 NYSTATIN-TRIAMCINOLONE 261144-5.1 UNIT/GM-% CREA 9990034 NYSTATIN- TRIAMCINOLONE Inactive AZITHROMYCIN 500 MG SOLR 1 po q day AZITHROMYCIN 500 MG SOLR 71371322837 AZITHROMYCIN Inactive VENTOLIN HFA 108 (90 BASE) MCG/ACT AERS 2 puffs four times a day PRN cough VENTOLIN HFA 108 (90 BASE) MCG/ACT AERS ALBUTEROL SULFATE Inactive LISINOPRIL 10 MG TABS 1/2-1 tab po every other day LISINOPRIL 10 MG TABS 147925 LISINOPRIL Inactive TUSSIONEX PENNKINETIC ER 10-8 MG/5ML LQCR 5ml po q12hr PRN Cough TUSSIONEX PENNKINETIC ER 10-8 MG/5ML LQCR HYDROCOD POLST- CHLORPHEN POLST Inactive PROMETHAZINE HCL 25 MG TABS 1 four times a day as needed for nausea/vomiting PROMETHAZINE HCL 25 MG TABS 687153 PROMETHAZINE HCL Inactive PREDNISONE 20 MG TAB 1 tablet twice daily for 2 days, then 1 tablet once daily for 2 days PREDNISONE 20 MG TAB 875005 PREDNISONE Inactive WARFARIN SODIUM 4 MG TABS 1 tab every evening WARFARIN SODIUM 4 MG TABS 064766 WARFARIN SODIUM Inactive LOMOTIL 2.5-0.025 MG TAB 1 to 2 four times a day as needed for diarrhea 10/13 LOMOTIL 2.5-0.025 MG TAB 6198301 DIPHENOXYLATE-ATROPINE Inactive IBUPROFEN 800 MG TABS 1 tab every 8 hours as needed IBUPROFEN 800 MG TABS 100243 IBUPROFEN Inactive PREDNISONE 20 MG TAB 2 tablets today, then 1 tablet days 2 through 4 PREDNISONE 20 MG TAB 700047 PREDNISONE Inactive AZITHROMYCIN 250 MG TABS 2 po qd x 1 day, then 1 po qd x 4 days AZITHROMYCIN 250 MG TABS 1660835 AZITHROMYCIN Inactive AZITHROMYCIN 250 MG TABS 2 po qd x 1 day, then 1 po qd x 4 days AZITHROMYCIN 250 MG TABS 0454006 AZITHROMYCIN Inactive NYSTATIN-TRIAMCINOLONE 724137-3.1 UNIT/GM-% CREA Apply to area BID NYSTATIN-TRIAMCINOLONE 893099-6.1 UNIT/GM-% CREA 5420816 NYSTATIN-TRIAMCINOLONE Inactive AZITHROMYCIN 250 MG TABS 2 po qd x 1 day, then 1 po qd x 4 days AZITHROMYCIN 250 MG TABS 0005904 AZITHROMYCIN Inactive AZITHROMYCIN 250 MG TABS 2 po qd x 1 day, then 1 po qd x 4 days AZITHROMYCIN 250 MG TABS 2440650 AZITHROMYCIN Inactive AZITHROMYCIN 250 MG TABS 2 po qd x 1 day, then 1 po qd x 4 days AZITHROMYCIN 250 MG TABS 7909472 AZITHROMYCIN Inactive Advance Directives Directive Description Start Date LIVING WILL Vital Signs Date Name Value Unit Range Description blood pressure, diastolic - 8462-4 73 mm[Hg] BP phan blood pressure, systolic - 8480-6 134 mm[Hg] BP sys pulse rate E&M - 8867-4 60 /min Heart rate temperature E&M 96.8 [degF] Body temperature weight E&M - 3141-9 224 [lb_av] Weight Measured blood pressure, diastolic - 8462-4 82 mm[Hg] [...] Panel - Chemistry sodium, serum 141 mmol/L 470-981 2658/06/28 carbon dioxide, venous blood 31.0 mmol/L 21.0-32.0 [...] Prothrombin Time - Coagulation prothrombin time (patient) 23.1 SECS s 11.1-13.4 international normalized ratio (INR) 3.0 1.0-3.5 prothrombin time (patient) 22.8 SECS s 11.1-13.4 international normalized ratio (INR) 3.0 1.0-3.5 prothrombin time (patient) 20.8 SECS s 11.1-13.4 international normalized ratio (INR) 2.5 1.0-3.5 prothrombin time (patient) 19.8 SECS s 11.1-13.4 international normalized ratio (INR) 2.3 1.0-3.5 prothrombin time (patient) 23.8 SECS s 11.1-13.4 international normalized ratio (INR) 3.2 1.0-3.5 prothrombin time (patient) 18.9 SECS s 11.1-13.4 international normalized ratio (INR) 2.4 1.0-3.5 prothrombin time (patient) 16.6 SECS s 11.1-13.4 international normalized ratio (INR) 1.9 1.0-3.5 prothrombin time (patient) 18.3 SECS s 11.1-13.4 international normalized ratio (INR) 2.3 1.0-3.5 prothrombin time (patient) 18.1 SECS s 11.1-13.4 international normalized ratio (INR) 2.2 1.0-3.5 prothrombin time (patient) 15.4 SECS s 11.1-13.4 international normalized ratio (INR) 1.7 1.0-3.5 Lab Report: UADIP W/MICRO, AUTO - [...] Negative Encounters Code Encounter Date Provider Facility CPT-89201 Level 4 Est. Patient 17:15:07 REAL ESTATE RENTAL AGENT Piotr Daley [facility] CPT-28367 Level 3 Est. Patient 12:46:13 REAL ESTATE RENTAL AGENT Piotr Katie Edi [facility] CPT-42378 Level 3 Est. Patient 15:14:31 REAL ESTATE RENTAL AGENT Piotr Katie Edi [facility] CPT-61282 Level 3 Est. Patient 09:20:13 REAL ESTATE RENTAL AGENT Piotr Katie Edi [facility] CPT-47963 Level 3 Est. Patient 09:49:40 CDT Piotr Katie Edi [facility] CPT-08778 Level 3 Est. Patient 16:28:11 CDT Piotr Katie Edi [facility] CPT-13589 Level 3 Est. Patient 12:41:58 REAL ESTATE RENTAL AGENT Piotr Katie Edi [facility] CPT-19574 Level 3 Est. Patient 09:21:24 CDT Piotr Daley [facility] CPT-57738 Level 3 Est. Patient 09:21:11 CDT Piotr Katie Edi [facility] CPT-55329 Level 3 Est. Patient 11:16:29 REAL ESTATE RENTAL AGENT Piotr Daley [facility] CPT-33285 Level 3 Est. Patient 18:40:19 REAL ESTATE RENTAL AGENT Piotr Daley [facility] CPT-59963 Level 3 Est. Patient 19:30:50 CDT Piotr Daley [facility] CPT-28739 Level 3 Est. Patient 22:06:44 CDT Katrina Rinaldi MD [facility] CPT-55997 Level 3 Est. Patient 14:20:00 CDT Piotr Daley [facility] CPT-95671 Level 3 Est. Patient 14:15:22 REAL ESTATE RENTAL AGENT Piotr Daley [facility] CPT-52893 Level 3 Est. Patient 20:19:57 REAL ESTATE RENTAL AGENT Piotr Daley [facility] CPT-83056 Level 3 Est. Patient 16:44:32 CDT Piotr Daley [facility] CPT-20841 Level 3 Est. Patient 08:48:46 REAL ESTATE RENTAL AGENT Piotr Daley [facility] CPT-32772 Level 3 Est. Patient 21:01:21 CDT Piotr Daley [facility] Procedures Code Procedure Name Date Entry Date Standard Description CPT-76136 Creatinine - LAB USE ONLY 14:37:55 REAL ESTATE RENTAL AGENT CPT-71054 PT/INR - LAB USE ONLY 14:37:55 REAL ESTATE RENTAL AGENT CPT-88603 Venipuncture Draw Fee 14:37:55 REAL ESTATE RENTAL AGENT CPT-28802 LS spine comp w obliques - XRAY USE ONLY 12:59:25 REAL ESTATE RENTAL AGENT CPT-43657 PT/INR - LAB USE ONLY 13:49:20 CDT CPT-52544 Venipuncture Draw Fee 13:49:19 CDT CPT-52044 PT/INR - LAB USE ONLY 15:48:49 CDT CPT-53286 Venipuncture Draw Fee 15:48:49 CDT CPT-23524 Venipuncture Draw Fee 11:31:59 CDT CPT-82809 PT/INR - LAB USE ONLY 11:31:59 CDT CPT-68550 Venipuncture Draw Fee 13:29:15 CDT CPT-50363 Thoracolumbar AP/Lat 15:19:19 REAL ESTATE RENTAL AGENT CPT-G0438 Initial Annual Wellness Exam 12:18:54 REAL ESTATE RENTAL AGENT CPT-34802 Knee 3V 09:57:38 CDT CPT-OV Office Visit 15:45:01 REAL ESTATE RENTAL AGENT CPT-11915 Abd compl w upright 17:10:25 CDT
--- OUTSIDE RECORDS SUMMARY | 2018-07-18 07:40 | XMS REPORT | Clinical Summary ---
Author Author Admin, E Organization [employer] Address Unknown Phone Unavailable Allergies, Adverse Reactions, [...] Coronary atherosclerosis of unspecified type of vessel, grindstone or graft Back pain, thoracic region, left [...] po q hs for nerve pain GABAPENTIN 33481794103 Active Piotr Daley DO Active WARFARIN SODIUM 5 MG TABS 1 tablet daily WARFARIN SODIUM 57006518182 Active Simi Meyers Active TRAMADOL HCL 50 MG TABS 1 po tid with ES Tylenol TRAMADOL HCL 47490614082 Active Piotr Daley DO Active PREDNISONE 20 MG TAB 2 tablets today, then 1 tablet days 2 through 4 PREDNISONE 85062861098 No Longer Active Piotr Daley DO Active AZITHROMYCIN 250 MG TABS 2 po qd x 1 day, then 1 po qd x 4 days AZITHROMYCIN 51754859428 No Longer Active Piotr Daley DO Active IBUPROFEN 800 MG TABS 1 tab every 8 hours as needed IBUPROFEN 03867781130 No Longer Active Piotr Daley DO Active LOMOTIL 2.5-0.025 MG TAB 1 to 2 four times a day as needed for diarrhea 10/13 DIPHENOXYLATE-ATROPINE 10896801811 No Longer Active Piotr Daley DO Active WARFARIN SODIUM 4 MG TABS 1 tab every evening WARFARIN SODIUM 13824895886 No Longer Active Piotr Daley DO Active PREDNISONE 20 MG TAB 1 tablet twice daily for 2 days, then 1 tablet once daily for 2 days PREDNISONE 01866398353 No Longer Active Piotr Daley DO Active PROMETHAZINE HCL 25 MG TABS 1 four times a day as needed for nausea/vomiting PROMETHAZINE HCL 17764986672 No Longer Active Piotr Daley DO Active TUSSIONEX PENNKINETIC ER 10-8 MG/5ML LQCR 5ml po q12hr PRN Cough HYDROCOD POLST-CHLORPHEN POLST 54279642029 No Longer Active Piotr Daley DO Active AZITHROMYCIN 250 MG TABS 2 po qd x 1 day, then 1 po qd x 4 days AZITHROMYCIN 68439997408 No Longer Active Piotr Daley DO Active AZITHROMYCIN 250 MG TABS 2 po qd x 1 day, then 1 po qd x 4 days AZITHROMYCIN 33981168241 No Longer Active Piotr Daley DO Active LISINOPRIL-HYDROCHLOROTHIAZIDE 10-12.5 MG TABS 1 tab by mouth daily LISINOPRIL-HYDROCHLOROTHIAZIDE 42868286643 Active Simi Meyers Active LISINOPRIL 10 MG TABS 1/2-1 tab po every other day LISINOPRIL 03026273646 No Longer Active Piotr Dalye DO Active VENTOLIN HFA 108 (90 BASE) MCG/ACT AERS 2 puffs four times a day PRN cough ALBUTEROL SULFATE 82854217842 No Longer Active Piotr Daley DO Active NYSTATIN-TRIAMCINOLONE 339006-7.1 UNIT/GM-% CREA Apply to area BID NYSTATIN-TRIAMCINOLONE 03105542008 No Longer Active Alena Chavira DENTAL INSURANCE COORDINATOR Active PHISOHEX 3 % LIQD Use Directed HEXACHLOROPHENE 61425333239 No Longer Active Sandra [place] Active AZITHROMYCIN 250 MG TABS 2 po qd x 1 day, then 1 po qd x 4 days AZITHROMYCIN 44939328753 No Longer Active Katrina Rinaldi MD PhD Active AZITHROMYCIN 250 MG TABS 2 po qd x 1 day, then 1 po qd x 4 days AZITHROMYCIN 72944284023 No Longer Active Piotr Daley DO Active AZITHROMYCIN 500 MG SOLR 1 po q day AZITHROMYCIN 70247527851 No Longer Active Piotr Daley DO Active NYSTATIN-TRIAMCINOLONE 254483-2.1 UNIT/GM-% CREA apply bid 08/19 NYSTATIN-TRIAMCINOLONE 55961677022 No Longer Active Piotr Daley DO Active IBUPROFEN 800 MG TABS 1 po q 8 hours prn pain sparinly IBUPROFEN 56395296190 No Longer Active Piotr Daley DO Active VITAMIN D3 5000 UNIT CAPS 1 po daily CHOLECALCIFEROL 04023638434 Active Piotr Daley DO Active IBUPROFEN 800 MG TABS 1 po q 8 hours prn pain sparinly IBUPROFEN 800 MG TABS 818485 IBUPROFEN Inactive NYSTATIN-TRIAMCINOLONE 869472-5.1 UNIT/GM-% CREA apply bid 08/19 NYSTATIN-TRIAMCINOLONE 847512-3.1 UNIT/GM-% CREA 8961595 NYSTATIN- TRIAMCINOLONE Inactive AZITHROMYCIN 500 MG SOLR 1 po q day AZITHROMYCIN 500 MG SOLR 62812029076 AZITHROMYCIN Inactive VENTOLIN HFA 108 (90 BASE) MCG/ACT AERS 2 puffs four times a day PRN cough VENTOLIN HFA 108 (90 BASE) MCG/ACT AERS ALBUTEROL SULFATE Inactive LISINOPRIL 10 MG TABS 1/2-1 tab po every other day LISINOPRIL 10 MG TABS 654280 LISINOPRIL Inactive TUSSIONEX PENNKINETIC ER 10-8 MG/5ML LQCR 5ml po q12hr PRN Cough TUSSIONEX PENNKINETIC ER 10-8 MG/5ML LQCR HYDROCOD POLST- CHLORPHEN POLST Inactive PROMETHAZINE HCL 25 MG TABS 1 four times a day as needed for nausea/vomiting PROMETHAZINE HCL 25 MG TABS 431031 PROMETHAZINE HCL Inactive PREDNISONE 20 MG TAB 1 tablet twice daily for 2 days, then 1 tablet once daily for 2 days PREDNISONE 20 MG TAB 722475 PREDNISONE Inactive WARFARIN SODIUM 4 MG TABS 1 tab every evening WARFARIN SODIUM 4 MG TABS 989989 WARFARIN SODIUM Inactive LOMOTIL 2.5-0.025 MG TAB 1 to 2 four times a day as needed for diarrhea 10/13 LOMOTIL 2.5-0.025 MG TAB 0995814 DIPHENOXYLATE-ATROPINE Inactive IBUPROFEN 800 MG TABS 1 tab every 8 hours as needed IBUPROFEN 800 MG TABS 183503 IBUPROFEN Inactive PREDNISONE 20 MG TAB 2 tablets today, then 1 tablet days 2 through 4 PREDNISONE 20 MG TAB 976171 PREDNISONE Inactive AZITHROMYCIN 250 MG TABS 2 po qd x 1 day, then 1 po qd x 4 days AZITHROMYCIN 250 MG TABS 7442284 AZITHROMYCIN Inactive AZITHROMYCIN 250 MG TABS 2 po qd x 1 day, then 1 po qd x 4 days AZITHROMYCIN 250 MG TABS 3518453 AZITHROMYCIN Inactive NYSTATIN-TRIAMCINOLONE 612092-9.1 UNIT/GM-% CREA Apply to area BID NYSTATIN-TRIAMCINOLONE 538388-3.1 UNIT/GM-% CREA 4432056 NYSTATIN-TRIAMCINOLONE Inactive AZITHROMYCIN 250 MG TABS 2 po qd x 1 day, then 1 po qd x 4 days AZITHROMYCIN 250 MG TABS 0679297 AZITHROMYCIN Inactive AZITHROMYCIN 250 MG TABS 2 po qd x 1 day, then 1 po qd x 4 days AZITHROMYCIN 250 MG TABS 9239019 AZITHROMYCIN Inactive AZITHROMYCIN 250 MG TABS 2 po qd x 1 day, then 1 po qd x 4 days AZITHROMYCIN 250 MG TABS 1377707 AZITHROMYCIN Inactive Advance Directives Directive Description Start Date LIVING WILL LIVING WILL Vital Signs Date Name Value Unit Range Description blood pressure, diastolic - 8462-4 69 mm[Hg] [...] Panel - Chemistry sodium, serum 141 mmol/L 661-061 2981/06/28 carbon dioxide, venous blood 31.0 mmol/L 21.0-32.0 [...] ratio (INR) 3.2 1.0-3.5 prothrombin time (patient) 16.6 SECS s 11.1-13.4 international normalized ratio (INR) 1.9 1.0-3.5 prothrombin time (patient) 18.3 SECS s 11.1-13.4 international normalized ratio (INR) 2.3 1.0-3.5 prothrombin time (patient) 18.1 SECS s 11.1-13.4 international normalized ratio (INR) 2.2 1.0-3.5 prothrombin time (patient) 15.4 SECS s 11.1-13.4 international normalized ratio (INR) 1.7 1.0-3.5 Encounters Code Encounter Date Provider Facility CPT-28333 Level 4 Est. Patient 17:15:07 SKIP PIT WORKER Piotr Daley DO [facility] CPT-66295 Level 3 Est. Patient 12:46:13 SKIP PIT WORKER Piotr Daley [facility] CPT-20617 Level 3 Est. Patient 15:14:31 SKIP PIT WORKER Piotr Daley DO [facility] CPT-61762 Level 3 Est. Patient 09:20:13 SKIP PIT WORKER Piotr Daley DO [facility] CPT-12357 Level 3 Est. Patient 09:49:40 CDT Piotr Daley [facility] CPT-83799 Level 3 Est. Patient 16:28:11 CDT Piotr Daley [facility] CPT-03494 Level 3 Est. Patient 12:41:58 SKIP PIT WORKER Piotr Daley [facility] CPT-68315 Level 3 Est. Patient 09:21:24 CDT Piotr Daley [facility] CPT-57843 Level 3 Est. Patient 09:21:11 CDT Piotr Daley [facility] CPT-07510 Level 3 Est. Patient 11:16:29 SKIP PIT WORKER Piotr Daley [facility] CPT-74645 Level 3 Est. Patient 18:40:19 SKIP PIT WORKER Piotr Daley [facility] CPT-63604 Level 3 Est. Patient 19:30:50 CDT Piotr Daley [facility] CPT-27311 Level 3 Est. Patient 22:06:44 CDT Katrina Rinaldi MD [facility] CPT-51089 Level 3 Est. Patient 14:20:00 CDT Piotr Daley [facility] CPT-63241 Level 3 Est. Patient 14:15:22 SKIP PIT WORKER Piotr Daley [facility] CPT-59275 Level 3 Est. Patient 20:19:57 SKIP PIT WORKER Piotr Wilson Edi [facility] CPT-93529 Level 3 Est. Patient 16:44:32 CDT Piotr Katie Edi [facility] CPT-73276 Level 3 Est. Patient 08:48:46 SKIP PIT WORKER Piotr Daley [facility] CPT-10714 Level 3 Est. Patient 21:01:21 CDT Piotr Daley [facility] Procedures Code Procedure Name Date Entry Date Standard Description CPT-73731 PT/INR - LAB USE ONLY 08:12:25 SKIP PIT WORKER CPT-58558 Venipuncture Draw Fee 08:12:24 SKIP PIT WORKER CPT-45395 Venipuncture Draw Fee 11:31:07 SKIP PIT WORKER CPT-47866 TPSA - LAB USE ONLY 11:31:07 SKIP PIT WORKER CPT-15502 PT/INR - LAB USE ONLY 11:31:07 [facility] CPT-G0439 Subsequent Annual Wellness Exam 09:59:29 SKIP PIT WORKER CPT-01604 Creatinine - LAB USE ONLY 14:37:55 SKIP PIT WORKER CPT-22730 PT/INR - LAB USE ONLY 14:37:55 SKIP PIT WORKER CPT-33220 Venipuncture Draw Fee 14:37:55 SKIP PIT WORKER CPT-35901 LS spine comp w obliques - XRAY USE ONLY 12:59:25 [facility] CPT-48504 PT/INR - LAB USE ONLY 13:49:20 CDT CPT-42055 Venipuncture Draw Fee 13:49:19 CDT CPT-16160 PT/INR - LAB USE ONLY 15:48:49 CDT CPT-29337 Venipuncture Draw Fee 15:48:49 CDT CPT-96177 Venipuncture Draw Fee 11:31:59 CDT CPT-01324 PT/INR - LAB USE ONLY 11:31:59 CDT CPT-26289 Venipuncture Draw Fee 13:29:15 CDT CPT-71661 Thoracolumbar AP/Lat 15:19:19 [facility] CPT-G0438 Initial Annual Wellness Exam 12:18:54 SKIP PIT WORKER CPT-35335 Knee 3V 09:57:38 CDT CPT-OV Office Visit 15:45:01 SKIP PIT WORKER CPT-44116 Abd compl w upright 17:10:25 CDT
--- OUTSIDE RECORDS SUMMARY | 2018-07-18 07:41 | XMS REPORT | Clinical Summary ---
Author Author Admin, Isidra Organization [employer] Address Unknown Phone Unavailable Allergies, Adverse Reactions, [...] neoplasm of prostate V10.46 Active Alina Meyers REELING AND TUBING MACHINE OPERATOR Personal history of malignant neoplasm of prostate Coronary artery disease 414.00 Active Alina Luigi ARISTIDES Coronary atherosclerosis of unspecified type of vessel, la posta or graft Back pain, thoracic region, left 724.1 Inactive Piotr Daley DO Pain in thoracic spine Thoracic back pain 724.5 Active Piotr Wilson Edi DO Backache, unspecified Back pain lumbar 724.2 Active Piotr Daley DO Lumbago Peripheral neuropathy, lower extremity, left 356.9 Active 02/19 Piotr W Edi DO Unspecified hereditary and idiopathic peripheral neuropathy Insect bite 919.4 Active Nella Harris REELING AND TUBING MACHINE OPERATOR Insect bite, nonvenomous, of other, multiple, and unspecified sites, without mention of infection Pruritus 698.9 Active Nella Harris REELING AND TUBING MACHINE OPERATOR Unspecified pruritic disorder FLANK PAIN, RIGHT ICD-789.09 [...] mouth BID x10 days 10/01 DOXYCYCLINE HYCLATE 14146678879 No Longer Active Nella Harris APRN Active WARFARIN SODIUM 5 MG TABS 1 tablet daily M-S, 1/2 tab on Heart WARFARIN SODIUM 90291899839 Active Anahy Loja Active PROAIR HFA 108 (90 BASE) MCG/ACT AERS 1-2 puffs four times a day as needed ALBUTEROL SULFATE 21870536303 Active Matthew Rangel MD Active PREDNISONE 20 MG TAB 2 tabs daily for 3 days, 1 tab daily for 3 days, 1/2 tab daily for 2 days PREDNISONE 14648496816 No Longer Active Matthew Rangel MD Active TRAMADOL HCL 50 MG TABS 1 po tid with ES Tylenol TRAMADOL HCL 23128864552 No Longer Active Matthew Rangel MD Active GABAPENTIN 300 MG CAPS 1 po q hs for nerve pain GABAPENTIN 31655789524 No Longer Active Matthew Rangel MD Active PREDNISONE 20 MG TAB 2 tablets today, then 1 tablet days 2 through 4 PREDNISONE 67478604274 No Longer Active Piotr Daley DO Active AZITHROMYCIN 250 MG TABS 2 po qd x 1 day, then 1 po qd x 4 days AZITHROMYCIN 94431959049 No Longer Active Piotr Daley DO Active IBUPROFEN 800 MG TABS 1 tab every 8 hours as needed IBUPROFEN 17276945044 No Longer Active Piotr Daley DO Active LOMOTIL 2.5-0.025 MG TAB 1 to 2 four times a day as needed for diarrhea 10/13 DIPHENOXYLATE-ATROPINE 81591372472 No Longer Active Piotr Daley DO Active WARFARIN SODIUM 4 MG TABS 1 tab every evening WARFARIN SODIUM 56207511775 No Longer Active Piotr Daley DO Active PREDNISONE 20 MG TAB 1 tablet twice daily for 2 days, then 1 tablet once daily for 2 days PREDNISONE 37280228536 No Longer Active Piotr Daley DO Active PROMETHAZINE HCL 25 MG TABS 1 four times a day as needed for nausea/vomiting PROMETHAZINE HCL 84330613303 No Longer Active Piotr Daley DO Active TUSSIONEX PENNKINETIC ER 10-8 MG/5ML LQCR 5ml po q12hr PRN Cough HYDROCOD POLST-CHLORPHEN POLST 47957284124 No Longer Active Piotr Daley DO Active AZITHROMYCIN 250 MG TABS 2 po qd x 1 day, then 1 po qd x 4 days AZITHROMYCIN 26382674472 No Longer Active Piotr Daley DO Active AZITHROMYCIN 250 MG TABS 2 po qd x 1 day, then 1 po qd x 4 days AZITHROMYCIN 39379205551 No Longer Active Piotr Daley DO Active LISINOPRIL-HYDROCHLOROTHIAZIDE 10-12.5 MG TABS 1 tab by mouth daily LISINOPRIL-HYDROCHLOROTHIAZIDE 44047254683 Active Catalina Freitas Active LISINOPRIL 10 MG TABS 1/2-1 tab po every other day LISINOPRIL 07609714897 No Longer Active Piotr W Edi DO Active VENTOLIN HFA 108 (90 BASE) MCG/ACT AERS 2 puffs four times a day PRN cough ALBUTEROL SULFATE 86414053340 No Longer Active Piotr Daley DO Active NYSTATIN-TRIAMCINOLONE 202661-4.1 UNIT/GM-% CREA Apply to area BID NYSTATIN-TRIAMCINOLONE 93639837322 No Longer Active Alena Oswaldum RESEARCH AND DEVELOPMENT MANAGER Active PHISOHEX 3 % LIQD Use Directed HEXACHLOROPHENE 54358146597 No Longer Active Sandra [place] Active AZITHROMYCIN 250 MG TABS 2 po qd x 1 day, then 1 po qd x 4 days AZITHROMYCIN 30520724093 No Longer Active Katrina Rinaldi MD PhD Active AZITHROMYCIN 250 MG TABS 2 po qd x 1 day, then 1 po qd x 4 days AZITHROMYCIN 02219449055 No Longer Active Piotr Daley DO Active AZITHROMYCIN 500 MG SOLR 1 po q day AZITHROMYCIN 39066857690 No Longer Active Piotr Daley DO Active NYSTATIN-TRIAMCINOLONE 747470-2.1 UNIT/GM-% CREA apply bid 08/19 NYSTATIN-TRIAMCINOLONE 88521026835 No Longer Active Piotr Daley DO Active IBUPROFEN 800 MG TABS 1 po q 8 hours prn pain sparinly IBUPROFEN 04685126588 No Longer Active Piotr Daley DO Active VITAMIN D3 5000 UNIT CAPS 1 po daily CHOLECALCIFEROL 28621815513 Active Piotr Daley DO Active IBUPROFEN 800 MG TABS 1 po q 8 hours prn pain sparinly IBUPROFEN 800 MG TABS 832242 IBUPROFEN Inactive NYSTATIN-TRIAMCINOLONE 979561-3.1 UNIT/GM-% CREA apply bid 08/19 NYSTATIN-TRIAMCINOLONE 249486-0.1 UNIT/GM-% CREA 1803544 NYSTATIN- TRIAMCINOLONE Inactive AZITHROMYCIN 500 MG SOLR 1 po q day AZITHROMYCIN 500 MG SOLR 98247413955 AZITHROMYCIN Inactive VENTOLIN HFA 108 (90 BASE) MCG/ACT AERS 2 puffs four times a day PRN cough VENTOLIN HFA 108 (90 BASE) MCG/ACT AERS ALBUTEROL SULFATE Inactive LISINOPRIL 10 MG TABS 1/2-1 tab po every other day LISINOPRIL 10 MG TABS 705193 LISINOPRIL Inactive TUSSIONEX PENNKINETIC ER 10-8 MG/5ML LQCR 5ml po q12hr PRN Cough TUSSIONEX PENNKINETIC ER 10-8 MG/5ML LQCR HYDROCOD POLST- CHLORPHEN POLST Inactive PROMETHAZINE HCL 25 MG TABS 1 four times a day as needed for nausea/vomiting PROMETHAZINE HCL 25 MG TABS 458580 PROMETHAZINE HCL Inactive PREDNISONE 20 MG TAB 1 tablet twice daily for 2 days, then 1 tablet once daily for 2 days PREDNISONE 20 MG TAB 499285 PREDNISONE Inactive WARFARIN SODIUM 4 MG TABS 1 tab every evening WARFARIN SODIUM 4 MG TABS 581214 WARFARIN SODIUM Inactive LOMOTIL 2.5-0.025 MG TAB 1 to 2 four times a day as needed for diarrhea 10/13 LOMOTIL 2.5-0.025 MG TAB 5454782 DIPHENOXYLATE-ATROPINE Inactive IBUPROFEN 800 MG TABS 1 tab every 8 hours as needed IBUPROFEN 800 MG TABS 139138 IBUPROFEN Inactive PREDNISONE 20 MG TAB 2 tablets today, then 1 tablet days 2 through 4 PREDNISONE 20 MG TAB 700232 PREDNISONE Inactive GABAPENTIN 300 MG CAPS 1 po q hs for nerve pain GABAPENTIN 300 MG CAPS 871108 GABAPENTIN Inactive TRAMADOL HCL 50 MG TABS 1 po tid with ES Tylenol TRAMADOL HCL 50 MG TABS 320974 TRAMADOL HCL Inactive AZITHROMYCIN 250 MG TABS 2 po qd x 1 day, then 1 po qd x 4 days AZITHROMYCIN 250 MG TABS 025486 AZITHROMYCIN Inactive AZITHROMYCIN 250 MG TABS 2 po qd x 1 day, then 1 po qd x 4 days AZITHROMYCIN 250 MG TABS 887620 AZITHROMYCIN Inactive NYSTATIN-TRIAMCINOLONE 228205-5.1 UNIT/GM-% CREA Apply to area BID NYSTATIN-TRIAMCINOLONE 225928-4.1 UNIT/GM-% CREA 1000084 NYSTATIN-TRIAMCINOLONE Inactive AZITHROMYCIN 250 MG TABS 2 po qd x 1 day, then 1 po qd x 4 days AZITHROMYCIN 250 MG TABS 727874 AZITHROMYCIN Inactive AZITHROMYCIN 250 MG TABS 2 po qd x 1 day, then 1 po qd x 4 days AZITHROMYCIN 250 MG TABS 260287 AZITHROMYCIN Inactive AZITHROMYCIN 250 MG TABS 2 po qd x 1 day, then 1 po qd x 4 days AZITHROMYCIN 250 MG TABS 077655 AZITHROMYCIN Inactive PREDNISONE 20 MG TAB 2 tabs daily for 3 days, 1 tab daily for 3 days, 1/2 tab daily for 2 days PREDNISONE 20 MG TAB 420697 PREDNISONE Inactive DOXYCYCLINE HYCLATE 100 MG CAP 1 cap by mouth BID x10 days 10/01 DOXYCYCLINE HYCLATE 100 MG CAP 0264171 DOXYCYCLINE HYCLATE Inactive Advance Directives Directive Description [...] Panel - Chemistry sodium, serum 141 mmol/L 811-096 8636/01/24 potassium, serum 4.3 mmol/L 3.5-5.2 chloride, serum [...] % 11.0-15.0 platelet count 172 THOUSAND/UL 10*3/mm3 560-592 8197/04/12 mean platelet volume 8.6 fL 7.5-12.5 Lab Report: Creatinine - Chemistry creatinine, serum 1.07 mg/dL 0.55-1.30 Lab Report: Prostatic Specific Ag, Prothrombin Time - Chemistry prostate specific antigen 0.01 ng/mL 0.00-4.00 Lab Report: Prostatic Specific Ag, Prothrombin Time - Coagulation international normalized ratio (INR) 3.7 1.0-3.5 prothrombin time (patient) 25.9 SECS s 11.1-13.4 Lab Report: Prothrombin Time - Coagulation prothrombin time (patient) 23.1 SECS s 11.1-13.4 international normalized ratio (INR) 3.0 1.0-3.5 prothrombin time (patient) 23.8 SECS s 11.1-13.4 prothrombin time (patient) 24.3 SECS s 11.1-13.4 international normalized ratio (INR) 3.3 1.0-3.5 prothrombin time (patient) 27.8 SECS s 11.1-13.4 international normalized ratio (INR) 4.2 1.0-3.5 international normalized ratio (INR) 3.2 1.0-3.5 Lab Report: Prothrombin Time Hemochron - Coagulation prothrombin time (patient) 33.0 SECS s 18.9-24.9 Encounters Code Encounter Date Provider Facility CPT-04674 Level 3 Est. Patient 17:10:19 MALACHI Harris REELING AND TUBING MACHINE OPERATOR [facility] CPT-47549 Level 3 Est. Patient 10:48:17 CAREER PLACEMENT SERVICES COUNSELOR Matthew Rangel MD [facility] CPT-37005 Level 4 Est. Patient 17:15:07 CAREER PLACEMENT SERVICES COUNSELOR Piotr Daley [facility] CPT-90899 Level 3 Est. Patient 12:46:13 CAREER PLACEMENT SERVICES COUNSELOR Piotr Daley [facility] CPT-18258 Level 3 Est. Patient 15:14:31 CAREER PLACEMENT SERVICES COUNSELOR Piotr Daley [facility] CPT-07080 Level 3 Est. Patient 09:20:13 CAREER PLACEMENT SERVICES COUNSELOR Piotr Daley [facility] CPT-31549 Level 3 Est. Patient 09:49:40 CDT Piotr Daley [facility] CPT-08873 Level 3 Est. Patient 16:28:11 CDT Piotr Daley [facility] CPT-47427 Level 3 Est. Patient 12:41:58 CAREER PLACEMENT SERVICES COUNSELOR Piotr Daley [facility] CPT-67364 Level 3 Est. Patient 09:21:24 CDT Piotr Daley [facility] CPT-70104 Level 3 Est. Patient 09:21:11 CDT Piotr Daley [facility] CPT-36496 Level 3 Est. Patient 11:16:29 CAREER PLACEMENT SERVICES COUNSELOR Piotr Daley [facility] CPT-10976 Level 3 Est. Patient 18:40:19 CAREER PLACEMENT SERVICES COUNSELOR Piotr Daley [facility] CPT-89635 Level 3 Est. Patient 19:30:50 CDT Piotr Daley [facility] CPT-32050 Level 3 Est. Patient 22:06:44 CDT Katrina Rinaldi MD PhD [facility] CPT-35153 Level 3 Est. Patient 14:20:00 CDT Piotr Daley [facility] CPT-08882 Level 3 Est. Patient 14:15:22 CAREER PLACEMENT SERVICES COUNSELOR Piotr Daley [facility] CPT-50789 Level 3 Est. Patient 20:19:57 CAREER PLACEMENT SERVICES COUNSELOR Piotr Daley [facility] CPT-61919 Level 3 Est. Patient 16:44:32 CDT Piotr Daley [facility] CPT-36795 Level 3 Est. Patient 08:48:46 CAREER PLACEMENT SERVICES COUNSELOR Piotr Daley [facility] CPT-22375 Level 3 Est. Patient 21:01:21 CDT Piotr Daley [facility] Procedures Code Procedure Name Date Entry Date Standard Description CPT-34168 BMP - LAB USE ONLY 17:19:11 CAREER PLACEMENT SERVICES COUNSELOR CPT-21810 PT/INR - LAB USE ONLY 17:19:10 CAREER PLACEMENT SERVICES COUNSELOR CPT-60017 Venipuncture Draw Fee 17:19:10 CAREER PLACEMENT SERVICES COUNSELOR CPT-15243 PT/INR - LAB USE ONLY 08:12:25 CAREER PLACEMENT SERVICES COUNSELOR CPT-89050 Venipuncture Draw Fee 08:12:24 CAREER PLACEMENT SERVICES COUNSELOR CPT-48101 Venipuncture Draw Fee 11:31:07 CAREER PLACEMENT SERVICES COUNSELOR CPT-08108 TPSA - LAB USE ONLY 11:31:07 CAREER PLACEMENT SERVICES COUNSELOR CPT-33417 PT/INR - LAB USE ONLY 11:31:07 CAREER PLACEMENT SERVICES COUNSELOR CPT-G0439 [facility] Annual Wellness Exam 09:59:29 CAREER PLACEMENT SERVICES COUNSELOR CPT-88667 Creatinine - LAB USE ONLY 14:37:55 CAREER PLACEMENT SERVICES COUNSELOR CPT-10501 PT/INR - LAB USE ONLY 14:37:55 CAREER PLACEMENT SERVICES COUNSELOR CPT-42834 Venipuncture Draw Fee 14:37:55 CAREER PLACEMENT SERVICES COUNSELOR CPT-66665 LS spine comp w obliques - XRAY USE ONLY 12:59:25 CAREER PLACEMENT SERVICES COUNSELOR CPT-31698 PT/INR - LAB USE ONLY 13:49:20 CDT CPT-28388 Venipuncture Draw Fee 13:49:19 CDT CPT-93094 PT/INR - LAB USE ONLY 15:48:49 CDT CPT-99115 Venipuncture Draw Fee 15:48:49 CDT CPT-68949 Venipuncture Draw Fee 11:31:59 CDT CPT-82035 PT/INR - LAB USE ONLY 11:31:59 CDT CPT-42975 Venipuncture Draw Fee 13:29:15 CDT CPT-53370 Thoracolumbar AP/Lat 15:19:19 CAREER PLACEMENT SERVICES COUNSELOR CPT-G0438 Initial Annual Wellness Exam 12:18:54 CAREER PLACEMENT SERVICES COUNSELOR CPT-21913 Knee 3V 09:57:38 CDT CPT-OV Office Visit 15:45:01 CAREER PLACEMENT SERVICES COUNSELOR CPT-68304 Abd compl w upright 17:10:25 CDT
--- OUTSIDE RECORDS SUMMARY | 2018-07-18 07:41 | XMS REPORT | Clinical Summary ---
Author Author Admin, E Organization [employer] Address Unknown Phone Unavailable Allergies, Adverse Reactions, [...] Coronary atherosclerosis of unspecified type of vessel, [place] or graft Back pain, thoracic region, left [...] MG TABS 1 tablet daily WARFARIN SODIUM 90015498556 Active Emelyn Goode RPT,RMA Active TRAMADOL HCL 50 MG TABS 1 po tid with ES Tylenol TRAMADOL HCL 43301485756 Active Piotr Daley DO Active PREDNISONE 20 MG TAB 2 tablets today, then 1 tablet days 2 through 4 PREDNISONE 02915362289 No Longer Active Piotr Daley DO Active AZITHROMYCIN 250 MG TABS 2 po qd x 1 day, then 1 po qd x 4 days AZITHROMYCIN 50215301688 No Longer Active Piotr Daley DO Active IBUPROFEN 800 MG TABS 1 tab every 8 hours as needed IBUPROFEN 01351317756 No Longer Active Piotr Daley DO Active LOMOTIL 2.5-0.025 MG TAB 1 to 2 four times a day as needed for diarrhea 10/13 DIPHENOXYLATE-ATROPINE 22766823898 No Longer Active Piotr Daley DO Active WARFARIN SODIUM 4 MG TABS 1 tab every evening WARFARIN SODIUM 52422209731 No Longer Active Piotr Daley DO Active PREDNISONE 20 MG TAB 1 tablet twice daily for 2 days, then 1 tablet once daily for 2 days PREDNISONE 91929801652 No Longer Active Piotr Daley DO Active PROMETHAZINE HCL 25 MG TABS 1 four times a day as needed for nausea/vomiting PROMETHAZINE HCL 88779318330 No Longer Active Piotr Daley DO Active TUSSIONEX PENNKINETIC ER 10-8 MG/5ML LQCR 5ml po q12hr PRN Cough HYDROCOD POLST-CHLORPHEN POLST 18295583125 No Longer Active Piotr W Edi DO Active AZITHROMYCIN 250 MG TABS 2 po qd x 1 day, then 1 po qd x 4 days AZITHROMYCIN 94851861576 No Longer Active Piotr Daley DO Active AZITHROMYCIN 250 MG TABS 2 po qd x 1 day, then 1 po qd x 4 days AZITHROMYCIN 82653219804 No Longer Active Piotr Daley DO Active LISINOPRIL-HYDROCHLOROTHIAZIDE 10-12.5 MG TABS 1 tab by mouth daily LISINOPRIL-HYDROCHLOROTHIAZIDE 06113102263 Active Hilary Ma MA Active LISINOPRIL 10 MG TABS 1/2-1 tab po every other day LISINOPRIL 96510526840 No Longer Active Piotr Daley DO Active VENTOLIN HFA 108 (90 BASE) MCG/ACT AERS 2 puffs four times a day PRN cough ALBUTEROL SULFATE 94915660129 No Longer Active Piotr Daley DO Active NYSTATIN-TRIAMCINOLONE 212469-0.1 UNIT/GM-% CREA Apply to area BID NYSTATIN-TRIAMCINOLONE 41914317268 No Longer Active Alena Oswaldum TRACK COACH Active PHISOHEX 3 % LIQD Use Directed HEXACHLOROPHENE 34065941155 No Longer Active Sandra [place] Active AZITHROMYCIN 250 MG TABS 2 po qd x 1 day, then 1 po qd x 4 days AZITHROMYCIN 11869130646 No Longer Active Katrina Rinaldi MD PhD Active AZITHROMYCIN 250 MG TABS 2 po qd x 1 day, then 1 po qd x 4 days AZITHROMYCIN 26417880027 No Longer Active Piotr Daley DO Active AZITHROMYCIN 500 MG SOLR 1 po q day AZITHROMYCIN 17927586277 No Longer Active Piotr Daley DO Active NYSTATIN-TRIAMCINOLONE 504832-1.1 UNIT/GM-% CREA apply bid 08/19 NYSTATIN-TRIAMCINOLONE 57138884912 No Longer Active Piotr Daley DO Active IBUPROFEN 800 MG TABS 1 po q 8 hours prn pain sparinly IBUPROFEN 06925233842 No Longer Active Piotr Daley DO Active VITAMIN D3 5000 UNIT CAPS 1 po daily CHOLECALCIFEROL 23331516576 Active Piotr Daley DO Active IBUPROFEN 800 MG TABS 1 po q 8 hours prn pain sparinly IBUPROFEN 800 MG TABS 373121 IBUPROFEN Inactive NYSTATIN-TRIAMCINOLONE 695785-1.1 UNIT/GM-% CREA apply bid 08/19 NYSTATIN-TRIAMCINOLONE 369338-7.1 UNIT/GM-% CREA 1716426 NYSTATIN- TRIAMCINOLONE Inactive AZITHROMYCIN 500 MG SOLR 1 po q day AZITHROMYCIN 500 MG SOLR 62197454951 AZITHROMYCIN Inactive VENTOLIN HFA 108 (90 BASE) MCG/ACT AERS 2 puffs four times a day PRN cough VENTOLIN HFA 108 (90 BASE) MCG/ACT AERS ALBUTEROL SULFATE Inactive LISINOPRIL 10 MG TABS 1/2-1 tab po every other day LISINOPRIL 10 MG TABS 478092 LISINOPRIL Inactive TUSSIONEX PENNKINETIC ER 10-8 MG/5ML LQCR 5ml po q12hr PRN Cough TUSSIONEX PENNKINETIC ER 10-8 MG/5ML LQCR HYDROCOD POLST- CHLORPHEN POLST Inactive PROMETHAZINE HCL 25 MG TABS 1 four times a day as needed for nausea/vomiting PROMETHAZINE HCL 25 MG TABS 751921 PROMETHAZINE HCL Inactive PREDNISONE 20 MG TAB 1 tablet twice daily for 2 days, then 1 tablet once daily for 2 days PREDNISONE 20 MG TAB 647556 PREDNISONE Inactive WARFARIN SODIUM 4 MG TABS 1 tab every evening WARFARIN SODIUM 4 MG TABS 880358 WARFARIN SODIUM Inactive LOMOTIL 2.5-0.025 MG TAB 1 to 2 four times a day as needed for diarrhea 10/13 LOMOTIL 2.5-0.025 MG TAB 9028393 DIPHENOXYLATE-ATROPINE Inactive IBUPROFEN 800 MG TABS 1 tab every 8 hours as needed IBUPROFEN 800 MG TABS 221194 IBUPROFEN Inactive PREDNISONE 20 MG TAB 2 tablets today, then 1 tablet days 2 through 4 PREDNISONE 20 MG TAB 911792 PREDNISONE Inactive AZITHROMYCIN 250 MG TABS 2 po qd x 1 day, then 1 po qd x 4 days AZITHROMYCIN 250 MG TABS 2476654 AZITHROMYCIN Inactive AZITHROMYCIN 250 MG TABS 2 po qd x 1 day, then 1 po qd x 4 days AZITHROMYCIN 250 MG TABS 6187983 AZITHROMYCIN Inactive NYSTATIN-TRIAMCINOLONE 755988-3.1 UNIT/GM-% CREA Apply to area BID NYSTATIN-TRIAMCINOLONE 942791-4.1 UNIT/GM-% CREA 5601392 NYSTATIN-TRIAMCINOLONE Inactive AZITHROMYCIN 250 MG TABS 2 po qd x 1 day, then 1 po qd x 4 days AZITHROMYCIN 250 MG TABS 7570179 AZITHROMYCIN Inactive AZITHROMYCIN 250 MG TABS 2 po qd x 1 day, then 1 po qd x 4 days AZITHROMYCIN 250 MG TABS 2651775 AZITHROMYCIN Inactive AZITHROMYCIN 250 MG TABS 2 po qd x 1 day, then 1 po qd x 4 days AZITHROMYCIN 250 MG TABS 3779197 AZITHROMYCIN Inactive Advance Directives Directive Description Start [...] Panel - Chemistry sodium, serum 141 mmol/L 769-518 4248/06/28 carbon dioxide, venous blood 31.0 mmol/L 21.0-32.0 [...] Prothrombin Time - Coagulation prothrombin time (patient) 18.9 SECS s 11.1-13.4 international normalized ratio (INR) 2.4 1.0-3.5 prothrombin time (patient) 22.8 SECS s 11.1-13.4 international normalized ratio (INR) 3.0 1.0-3.5 prothrombin time (patient) 16.6 SECS s 11.1-13.4 international normalized ratio (INR) 1.9 1.0-3.5 prothrombin time (patient) 18.3 SECS s 11.1-13.4 international normalized ratio (INR) 2.3 1.0-3.5 prothrombin time (patient) 18.1 SECS s 11.1-13.4 international normalized ratio (INR) 2.2 1.0-3.5 prothrombin time (patient) 15.4 SECS s 11.1-13.4 international normalized ratio (INR) 1.7 1.0-3.5 prothrombin time (patient) 17.3 SECS s 11.1-13.4 international normalized ratio (INR) 1.99 1.0-3.5 Lab Report: Prothrombin Time, Prostatic Specific [...] 5.0-8.5 Encounters Code Encounter Date Provider Facility CPT-40039 Level 3 Est. Patient 15:14:31 PIPE LINE REPAIRER Piotr Daley [facility] CPT-91997 Level 3 Est. Patient 09:20:13 PIPE LINE REPAIRER Piotr Daley [facility] CPT-13119 Level 3 Est. Patient 09:49:40 CDT Piotr W [facility] CPT-73724 Level 3 Est. Patient 16:28:11 CDT Piotr Daley [facility] CPT-73982 Level 3 Est. Patient 12:41:58 PIPE LINE REPAIRER Piotr Daley [facility] CPT-50154 Level 3 Est. Patient 09:21:[address] [facility] CPT-75841 Level 3 Est. Patient 09:21:[address] [facility] CPT-75038 Level 3 Est. Patient 11:16:29 PIPE LINE REPAIRER Piotr Daley [facility] CPT-97003 Level 3 Est. Patient 18:40:19 PIPE LINE REPAIRER Piotr Daley [facility] CPT-49694 Level 3 Est. Patient 19:30:50 CDT Piotr Daley [facility] CPT-77238 Level 3 Est. Patient 22:06:44 CDT Katrina Rinaldi MD PhD [facility] CPT-83076 Level 3 Est. Patient 14:20:00 CDT Piotr Daley [facility] CPT-51843 Level 3 Est. Patient 14:15:22 PIPE LINE REPAIRER Piotr Daley [facility] CPT-72039 Level 3 Est. Patient 20:19:57 PIPE LINE REPAIRER Piotr Daley [facility] CPT-26990 Level 3 Est. Patient 16:44:32 CDT Piotr Katie Daley [facility] CPT-20485 Level 3 Est. Patient 08:48:46 PIPE LINE REPAIRER Piotr Wilson Edi [facility] CPT-11628 Level 3 Est. Patient 21:01:21 CDT Piotr Katie Edi [facility] Procedures Code Procedure Name Date Entry Date Standard Description CPT-43951 Venipuncture Draw Fee 11:31:59 CDT CPT-10916 PT/INR - LAB USE ONLY 11:31:59 CDT CPT-15793 Venipuncture Draw Fee 13:29:15 CDT CPT-61831 Thoracolumbar AP/Lat 15:19:19 PIPE LINE REPAIRER CPT-G0438 Initial Annual Wellness Exam 12:18:54 PIPE LINE REPAIRER CPT-76742 Knee 3V 09:57:38 CDT CPT-OV Office Visit 15:45:01 PIPE LINE REPAIRER CPT-64818 Abd compl w upright 17:10:25 CDT
--- OUTSIDE RECORDS SUMMARY | 2018-07-18 07:42 | XMS REPORT | Clinical Summary ---
Author Author Admin, [employer] Organization [employer] Address Unknown Phone Unavailable Allergies, Adverse Reactions, [...] neoplasm of prostate V10.46 Active Alina Meyers AIRCRAFT DETAIL DRAFTSPERSON Personal history of malignant neoplasm of prostate Coronary artery disease 414.00 Active Alina Meyers APRN Coronary atherosclerosis of unspecified type of vessel, [place] or graft Back pain, thoracic region, left 724.1 Inactive Piotr Katie Edi DO Pain in thoracic spine Thoracic back pain 724.5 Active Piotr Katie Edi DO Backache, unspecified Back pain lumbar 724.2 Active Piotr Katie Daley DO Lumbago Peripheral neuropathy, lower extremity, [...] pain, thoracic region, left ICD-724.1 Inactive Piotr Wilson Edi DO Medication List Medication Instructions Start Date Stop Date Generic Name NDC Status Provider Patient Instruction PROAIR HFA 108 (90 BASE) MCG/ACT AERS 1-2 puffs four times a day as needed ALBUTEROL SULFATE 56614198180 Active Matthew Rangel MD Active PREDNISONE 20 MG TAB 2 tabs daily for 3 days, 1 tab daily for 3 days, 1/2 tab daily for 2 days PREDNISONE 05868639017 No Longer Active Matthew Rangel MD Active TRAMADOL HCL 50 MG TABS 1 po tid with ES Tylenol TRAMADOL HCL 47486984923 No Longer Active Matthew Rangel MD Active GABAPENTIN 300 MG CAPS 1 po q hs for nerve pain GABAPENTIN 06433360151 No Longer Active Matthew Rangel MD Active WARFARIN SODIUM 5 MG TABS 1 tablet daily WARFARIN SODIUM 86822837946 Active Piotr Daley DO Active PREDNISONE 20 MG TAB 2 tablets today, then 1 tablet days 2 through 4 PREDNISONE 14836255038 No Longer Active Piotr Daley DO Active AZITHROMYCIN 250 MG TABS 2 po qd x 1 day, then 1 po qd x 4 days AZITHROMYCIN 54857302843 No Longer Active Piotr Daley DO Active IBUPROFEN 800 MG TABS 1 tab every 8 hours as needed IBUPROFEN 47155203261 No Longer Active Piotr Daley DO Active LOMOTIL 2.5-0.025 MG TAB 1 to 2 four times a day as needed for diarrhea 10/13 DIPHENOXYLATE-ATROPINE 04844286113 No Longer Active Piotr Daley DO Active WARFARIN SODIUM 4 MG TABS 1 tab every evening WARFARIN SODIUM 43469372880 No Longer Active Piotr Daley DO Active PREDNISONE 20 MG TAB 1 tablet twice daily for 2 days, then 1 tablet once daily for 2 days PREDNISONE 47916579102 No Longer Active Piotr Daley DO Active PROMETHAZINE HCL 25 MG TABS 1 four times a day as needed for nausea/vomiting PROMETHAZINE HCL 30219636533 No Longer Active Piotr Daley DO Active TUSSIONEX PENNKINETIC ER 10-8 MG/5ML LQCR 5ml po q12hr PRN Cough HYDROCOD POLST-CHLORPHEN POLST 74974803344 No Longer Active Piotr Daley DO Active AZITHROMYCIN 250 MG TABS 2 po qd x 1 day, then 1 po qd x 4 days AZITHROMYCIN 48768853128 No Longer Active Piotr Daley DO Active AZITHROMYCIN 250 MG TABS 2 po qd x 1 day, then 1 po qd x 4 days AZITHROMYCIN 11628878367 No Longer Active Piotr Daley DO Active LISINOPRIL-HYDROCHLOROTHIAZIDE 10-12.5 MG TABS 1 tab by mouth daily LISINOPRIL-HYDROCHLOROTHIAZIDE 92882692193 Active Catalina Freitas Active LISINOPRIL 10 MG TABS 1/2-1 tab po every other day LISINOPRIL 98505335985 No Longer Active Piotr Daley DO Active VENTOLIN HFA 108 (90 BASE) MCG/ACT AERS 2 puffs four times a day PRN cough ALBUTEROL SULFATE 32029196003 No Longer Active Piotr Daley DO Active NYSTATIN-TRIAMCINOLONE 691833-0.1 UNIT/GM-% CREA Apply to area BID NYSTATIN-TRIAMCINOLONE 74595110169 No Longer Active Alena Chavira [employer]PUTER SYSTEMS SOFTWARE ENGINEER Active PHISOHEX 3 % LIQD Use Directed HEXACHLOROPHENE 93978698511 No Longer Active [place] Active AZITHROMYCIN 250 MG TABS 2 po qd x 1 day, then 1 po qd x 4 days AZITHROMYCIN 67749397811 No Longer Active Katrina Rinaldi MD PhD Active AZITHROMYCIN 250 MG TABS 2 po qd x 1 day, then 1 po qd x 4 days AZITHROMYCIN 35521994941 No Longer Active Piotr Daley DO Active AZITHROMYCIN 500 MG SOLR 1 po q day AZITHROMYCIN 17116090166 No Longer Active Piotr Daley DO Active NYSTATIN-TRIAMCINOLONE 998864-9.1 UNIT/GM-% CREA apply bid 08/19 NYSTATIN-TRIAMCINOLONE 29434583534 No Longer Active Piotr Daley DO Active IBUPROFEN 800 MG TABS 1 po q 8 hours prn pain sparinly IBUPROFEN 60819014144 No Longer Active Piotr Daley DO Active VITAMIN D3 5000 UNIT CAPS 1 po daily CHOLECALCIFEROL 30429381380 Active Piotr Daley DO Active IBUPROFEN 800 MG TABS 1 po q 8 hours prn pain sparinly IBUPROFEN 800 MG TABS 778411 IBUPROFEN Inactive NYSTATIN-TRIAMCINOLONE 223274-1.1 UNIT/GM-% CREA apply bid 08/19 NYSTATIN-TRIAMCINOLONE 861992-3.1 UNIT/GM-% CREA 4016691 NYSTATIN- TRIAMCINOLONE Inactive AZITHROMYCIN 500 MG SOLR 1 po q day AZITHROMYCIN 500 MG SOLR 95142458993 AZITHROMYCIN Inactive VENTOLIN HFA 108 (90 BASE) MCG/ACT AERS 2 puffs four times a day PRN cough VENTOLIN HFA 108 (90 BASE) MCG/ACT AERS ALBUTEROL SULFATE Inactive LISINOPRIL 10 MG TABS 1/2-1 tab po every other day LISINOPRIL 10 MG TABS 097315 LISINOPRIL Inactive TUSSIONEX PENNKINETIC ER 10-8 MG/5ML LQCR 5ml po q12hr PRN Cough TUSSIONEX PENNKINETIC ER 10-8 MG/5ML LQCR HYDROCOD POLST- CHLORPHEN POLST Inactive PROMETHAZINE HCL 25 MG TABS 1 four times a day as needed for nausea/vomiting PROMETHAZINE HCL 25 MG TABS 109675 PROMETHAZINE HCL Inactive PREDNISONE 20 MG TAB 1 tablet twice daily for 2 days, then 1 tablet once daily for 2 days PREDNISONE 20 MG TAB 654114 PREDNISONE Inactive WARFARIN SODIUM 4 MG TABS 1 tab every evening WARFARIN SODIUM 4 MG TABS 248365 WARFARIN SODIUM Inactive LOMOTIL 2.5-0.025 MG TAB 1 to 2 four times a day as needed for diarrhea 10/13 LOMOTIL 2.5-0.025 MG TAB 7142785 DIPHENOXYLATE-ATROPINE Inactive IBUPROFEN 800 MG TABS 1 tab every 8 hours as needed IBUPROFEN 800 MG TABS 792537 IBUPROFEN Inactive PREDNISONE 20 MG TAB 2 tablets today, then 1 tablet days 2 through 4 PREDNISONE 20 MG TAB 512114 PREDNISONE Inactive GABAPENTIN 300 MG CAPS 1 po q hs for nerve pain GABAPENTIN 300 MG CAPS 205214 GABAPENTIN Inactive TRAMADOL HCL 50 MG TABS 1 po tid with ES Tylenol TRAMADOL HCL 50 MG TABS 279265 TRAMADOL HCL Inactive AZITHROMYCIN 250 MG TABS 2 po qd x 1 day, then 1 po qd x 4 days AZITHROMYCIN 250 MG TABS 0483921 AZITHROMYCIN Inactive AZITHROMYCIN 250 MG TABS 2 po qd x 1 day, then 1 po qd x 4 days AZITHROMYCIN 250 MG TABS 8537769 AZITHROMYCIN Inactive NYSTATIN-TRIAMCINOLONE 955970-6.1 UNIT/GM-% CREA Apply to area BID NYSTATIN-TRIAMCINOLONE 057546-1.1 UNIT/GM-% CREA 4711460 NYSTATIN-TRIAMCINOLONE Inactive AZITHROMYCIN 250 MG TABS 2 po qd x 1 day, then 1 po qd x 4 days AZITHROMYCIN 250 MG TABS 6579792 AZITHROMYCIN Inactive AZITHROMYCIN 250 MG TABS 2 po qd x 1 day, then 1 po qd x 4 days AZITHROMYCIN 250 MG TABS 7357978 AZITHROMYCIN Inactive AZITHROMYCIN 250 MG TABS 2 po qd x 1 day, then 1 po qd x 4 days AZITHROMYCIN 250 MG TABS 5169223 AZITHROMYCIN Inactive PREDNISONE 20 MG TAB 2 tabs daily for 3 days, 1 tab daily for 3 days, 1/2 tab daily for 2 days PREDNISONE 20 MG TAB 385151 PREDNISONE Inactive Advance Directives Directive Description Start [...] Panel - Chemistry sodium, serum 141 mmol/L 422-447 8158/01/24 potassium, serum 4.3 mmol/L 3.5-5.2 chloride, serum [...] % 11.0-15.0 platelet count 172 THOUSAND/UL 10*3/mm3 781-217 6434/04/12 mean platelet volume 8.6 fL 7.5-12.5 Lab Report: Comp. Metabolic Panel - Chemistry sodium, serum 141 mmol/L 647-158 6401/06/28 carbon dioxide, venous blood 31.0 mmol/L 21.0-32.0 [...] ratio (INR) 3.0 1.0-3.5 prothrombin time (patient) 18.1 SECS s [...] 1.0-3.5 Encounters Code Encounter Date Provider Facility CPT-36989 Level 3 Est. Patient 10:48:17 MACHINIST AUTOMOTIVE Matthew Rangel MD [facility] CPT-37090 Level 4 Est. Patient 17:15:07 MACHINIST AUTOMOTIVE Piotr Wilson [facility] CPT-87412 Level 3 Est. Patient 12:46:13 MACHINIST AUTOMOTIVE Piotr Daley [facility] CPT-67087 Level 3 Est. Patient 15:14:31 MACHINIST AUTOMOTIVE Piotr Daley [facility] CPT-89956 Level 3 Est. Patient 09:20:13 MACHINIST AUTOMOTIVE Piotr Daley [facility] CPT-39829 Level 3 Est. Patient 09:49:40 CDT Piotr Wilson [facility] CPT-83934 Level 3 Est. Patient 16:28:11 CDT [facility]59687 Level 3 Est. Patient 12:41:58 MACHINIST AUTOMOTIVE Piotr Daley [facility] CPT-13222 Level 3 Est. Patient 09:21:24 CDT Piotr Daley [facility] CPT-47014 Level 3 Est. Patient 09:21:11 CDT Piotr Daley [facility] CPT-36032 Level 3 Est. Patient 11:16:29 MACHINIST AUTOMOTIVE Piotr Daley [facility] CPT-15246 Level 3 Est. Patient 18:40:19 MACHINIST AUTOMOTIVE Piotr Daley [facility] CPT-87052 Level 3 Est. Patient 19:30:50 CDT Piotr Daley [facility] CPT-91047 Level 3 Est. Patient 22:06:44 CDT Katrina Rinaldi MD [facility] CPT-11955 Level 3 Est. Patient 14:20:00 CDT Piotr Daley [facility] CPT-01748 Level 3 Est. Patient 14:15:22 MACHINIST AUTOMOTIVE Piotr Daley [facility] CPT-32518 Level 3 Est. Patient 20:19:57 MACHINIST AUTOMOTIVE Piotr Daley [facility] CPT-21182 Level 3 Est. Patient 16:44:32 CDT Piotr Daley [facility] CPT-99128 Level 3 Est. Patient 08:48:46 MACHINIST AUTOMOTIVE Piotr Daley [facility] CPT-29641 Level 3 Est. Patient 21:01:21 CDT Piotr Wilson [facility] Procedures Code Procedure Name Date Entry Date Standard Description CPT-35477 BMP - LAB USE ONLY 17:19:11 MACHINIST AUTOMOTIVE CPT-51652 PT/INR - LAB USE ONLY 17:19:10 MACHINIST AUTOMOTIVE CPT-37221 Venipuncture Draw Fee 17:19:10 MACHINIST AUTOMOTIVE CPT-85020 PT/INR - LAB USE ONLY 08:12:25 MACHINIST AUTOMOTIVE CPT-76864 Venipuncture Draw Fee 08:12:24 MACHINIST AUTOMOTIVE CPT-46868 Venipuncture Draw Fee 11:31:07 MACHINIST AUTOMOTIVE CPT-37340 TPSA - LAB USE ONLY 11:31:07 MACHINIST AUTOMOTIVE CPT-24577 PT/INR - LAB USE ONLY 11:31:07 MACHINIST AUTOMOTIVE CPT-G0439 [facility] Annual Wellness Exam 09:59:29 MACHINIST AUTOMOTIVE CPT-74846 Creatinine - LAB USE ONLY 14:37:55 MACHINIST AUTOMOTIVE CPT-35121 PT/INR - LAB USE ONLY 14:37:55 MACHINIST AUTOMOTIVE CPT-29978 Venipuncture Draw Fee 14:37:55 MACHINIST AUTOMOTIVE CPT-05009 LS spine comp w obliques - XRAY USE ONLY 12:59:25 MACHINIST AUTOMOTIVE CPT-43022 PT/INR - LAB USE ONLY 13:49:20 CDT CPT-13723 Venipuncture Draw Fee 13:49:19 CDT CPT-60953 PT/INR - LAB USE ONLY 15:48:49 CDT CPT-99061 Venipuncture Draw Fee 15:48:49 CDT CPT-68013 Venipuncture Draw Fee 11:31:59 CDT CPT-76811 PT/INR - LAB USE ONLY 11:31:59 CDT CPT-01216 Venipuncture Draw Fee 13:29:15 CDT CPT-92125 Thoracolumbar AP/Lat 15:19:19 MACHINIST AUTOMOTIVE CPT-G0438 Initial Annual Wellness Exam 12:18:54 MACHINIST AUTOMOTIVE CPT-32691 Knee 3V 09:57:38 CDT CPT-OV Office Visit 15:45:01 MACHINIST AUTOMOTIVE CPT-96188 Abd compl w upright 17:10:25 CDT
--- OUTSIDE RECORDS SUMMARY | 2018-07-18 07:43 | XMS REPORT | Clinical Summary ---
Author Author Admin, [employer] [facility] [employer] Address Unknown Phone Unavailable Allergies, Adverse Reactions, [...] neoplasm of prostate V10.46 Active Alina Meyers [employer] Personal history of malignant neoplasm of prostate Coronary artery disease 414.00 Active Alina Meyers APRN Coronary atherosclerosis of unspecified type of vessel, [place] or graft Back pain, thoracic region, left [...] health care facility Bronchitis-Acute 466.0 Resolved Emelyn Rodriguezwillbita Acute bronchitis Dyspnea 786.09 Resolved Emelyn Norris [...] Knee pain, left ICD-719.46 Inactive Sirisha Chen [employer] Actinic keratoses ICD-702.0 Inactive Sirisha Chen [employer] Back pain, thoracic region, left ICD-724.1 Inactive Piotr Daley DO Thoracic back pain ICD-724.5 Inactive Sirisha Chen [employer] Back pain lumbar ICD-724.2 Inactive Sirisha Chen [employer] Insect bite ICD-919.4 Inactive Sirisha Chen [employer] Pruritus ICD-698.9 Inactive Sirisha Chen [employer] 04/09 Bronchitis-Acute ICD-466.0 Inactive Sirisha Chen [employer] Dyspnea ICD-786.09 Inactive Sirisha Chen PASTE M[employer]QU[employer] 05/09 Medication List Medication Instructions Start Date Stop Date Generic Name NDC Status Provider Patient Instruction WARFARIN SODIUM 4 MG ORAL TABLET 1 tablet by mouth daily except 2mg on Saturday and Saturday WARFARIN SODIUM 00363606338 Active Anahy Loja Active MELOXICAM 15 MG ORAL TABLET 1 po q day for pain with food MELOXICAM 07149046240 Active Piotr Daley DO Active PREDNISONE 10 MG ORAL TABLET 1 tablet by mouth daily PREDNISONE 38880233449 No Longer Active Emelyn Norris Active TESSALON PERLES 100 MG ORAL CAPSULE 1-2 tablet by mouth 3 times daily 04/16 BENZONATATE 21789480666 No Longer Active Emelyn Norris Active PREDNISONE 20 MG ORAL TABLET two tabs by mouth today, then one tab by mouth days two and three PREDNISONE 59105553627 No Longer Active Piotr Daley DO Active CYCLOBENZAPRINE HCL 10 MG ORAL TABLET 1 tablet by mouth three times daily as needed for muscle spasm/pain CYCLOBENZAPRINE HCL 03439605246 Active Piotr Daley DO Active ZITHROMAX 250 MG ORAL TABLET Take two (2 ) tablets day one, then one (1) tablet a day for four (4) more days AZITHROMYCIN 01800053540 No Longer Active Piotr Daley DO Active PROAIR HFA 108 (90 BASE) MCG/ACT INHALATION AEROSOL SOLUTION 1-2 puffs four times a day as needed ALBUTEROL SULFATE 18603407646 No Longer Active Emelyn Norris Active DOXYCYCLINE HYCLATE 100 MG ORAL CAPSULE 1 cap by mouth BID x10 days DOXYCYCLINE HYCLATE 06850644235 No Longer Active Nella Harris APRN Active PREDNISONE 20 MG ORAL TABLET 2 tabs daily for 3 days, 1 tab daily for 3 days, 1/2 tab daily for 2 days PREDNISONE 09945436914 No Longer Active Matthew Rangel MD Active TRAMADOL HCL 50 MG ORAL TABLET 1 po tid with ES Tylenol TRAMADOL HCL 10764643789 No Longer Active Matthew Rangel MD Active GABAPENTIN 300 MG ORAL CAPSULE 1 po q hs for nerve pain GABAPENTIN 73046035281 No Longer Active Matthew Rangel MD Active PREDNISONE 20 MG ORAL TABLET 2 tablets today, then 1 tablet days 2 through 4 PREDNISONE 53961135884 No Longer Active Piotr Daley DO Active AZITHROMYCIN 250 MG ORAL TABLET 2 po qd x 1 day, then 1 po qd x 4 days 07/12 AZITHROMYCIN 62399558033 No Longer Active Piotr Daley DO Active IBUPROFEN 800 MG ORAL TABLET 1 tab every 8 hours as needed 07/12 IBUPROFEN 42705268546 No Longer Active Piotr Daley DO Active LOMOTIL 2.5-0.025 MG ORAL TABLET 1 to 2 four times a day as needed for diarrhea DIPHENOXYLATE-ATROPINE 70298892807 No Longer Active Piotr W Edi DO Active WARFARIN SODIUM 4 MG ORAL TABLET 1 tab every evening WARFARIN SODIUM 33568226827 No Longer Active Piotr Daley DO Active PREDNISONE 20 MG ORAL TABLET 1 tablet twice daily for 2 days, then 1 tablet once daily for 2 days PREDNISONE 33633508331 No Longer Active Piotr Daley DO Active PROMETHAZINE HCL 25 MG ORAL TABLET 1 four times a day as needed for nausea/ vomiting PROMETHAZINE HCL 98757475975 No Longer Active Piotr Daley DO Active TUSSIONEX PENNKINETIC ER 10-8 MG/5ML ORAL SUSPENSION EXTENDED RELEASE 5ml po q12hr PRN Cough HYDROCOD POLST-CHLORPHEN POLST 64731104477 No Longer Active Piotr Daley DO Active AZITHROMYCIN 250 MG ORAL TABLET 2 po qd x 1 day, then 1 po qd x 4 days 10/13 AZITHROMYCIN 19923546865 No Longer Active Piotr Daley DO Active AZITHROMYCIN 250 MG ORAL TABLET 2 po qd x 1 day, then 1 po qd x 4 days 05/07 AZITHROMYCIN 36034601804 No Longer Active Piotr Daley DO Active LISINOPRIL-HYDROCHLOROTHIAZIDE 10-12.5 MG ORAL TABLET 1 tab by mouth daily LISINOPRIL-HYDROCHLOROTHIAZIDE 54376111032 Active Piotr Daley DO Active LISINOPRIL 10 MG ORAL TABLET 1/2-1 tab po every other day LISINOPRIL 58418789981 No Longer Active Piotr Daley DO Active VENTOLIN HFA 108 (90 Base) MCG/ACT INHALATION AEROSOL SOLUTION 2 puffs four times a day PRN cough ALBUTEROL SULFATE 23659219553 No Longer Active Piotr Daley DO Active NYSTATIN-TRIAMCINOLONE 189351-8.1 UNIT/GM-% EXTERNAL CREAM Apply to area BID NYSTATIN-TRIAMCINOLONE 60640422296 No Longer Active Alena Chavira PASTE MIXER LIQUID Active PHISOHEX 3 % LIQD Use Directed HEXACHLOROPHENE 51534845191 No Longer Active Sandra Windfall Active AZITHROMYCIN 250 MG ORAL TABLET 2 po qd x 1 day, then 1 po qd x 4 days 10/21 AZITHROMYCIN 45010884658 No Longer Active Katrina Rinaldi MD PhD Active AZITHROMYCIN 250 MG ORAL TABLET 2 po qd x 1 day, then 1 po qd x 4 days 10/16 AZITHROMYCIN 68876162929 No Longer Active Piotr Daley DO Active AZITHROMYCIN 500 MG INTRAVENOUS SOLUTION RECONSTITUTED 1 po q day AZITHROMYCIN 61686158976 No Longer Active Piotr Daley DO Active NYSTATIN-TRIAMCINOLONE 418855-0.1 UNIT/GM-% EXTERNAL CREAM apply bid NYSTATIN-TRIAMCINOLONE 84610126164 No Longer Active Piotr Daley DO Active IBUPROFEN 800 MG ORAL TABLET 1 po q 8 hours prn pain sparinly IBUPROFEN 53187867747 No Longer Active Piotr Daley DO Active VITAMIN D3 5000 UNIT ORAL CAPSULE 1 po daily CHOLECALCIFEROL 20864130280 Active Piotr Daley DO Active IBUPROFEN 800 MG ORAL TABLET 1 po q 8 hours prn pain sparinly IBUPROFEN 800 MG ORAL TABLET 686704 IBUPROFEN Inactive NYSTATIN-TRIAMCINOLONE 380304-6.1 UNIT/GM-% EXTERNAL CREAM apply bid NYSTATIN-TRIAMCINOLONE 432350-0.1 UNIT/GM-% EXTERNAL CREAM 3026285 NYSTATIN-TRIAMCINOLONE Inactive AZITHROMYCIN 500 MG INTRAVENOUS SOLUTION RECONSTITUTED 1 po q day AZITHROMYCIN 500 MG INTRAVENOUS SOLUTION RECONSTITUTED 47809876871 AZITHROMYCIN Inactive VENTOLIN HFA 108 (90 Base) MCG/ACT INHALATION AEROSOL SOLUTION 2 puffs four times a day PRN cough VENTOLIN HFA 108 (90 Base) MCG/ ACT INHALATION AEROSOL SOLUTION ALBUTEROL SULFATE Inactive LISINOPRIL 10 MG ORAL TABLET 1/2-1 tab po every other day LISINOPRIL 10 MG ORAL TABLET 049784 LISINOPRIL Inactive TUSSIONEX PENNKINETIC ER 10-8 MG/5ML ORAL SUSPENSION EXTENDED RELEASE 5ml po q12hr PRN Cough TUSSIONEX PENNKINETIC ER 10-8 MG/5ML ORAL SUSPENSION EXTENDED RELEASE HYDROCOD POLST-CHLORPHEN POLST Inactive PROMETHAZINE HCL 25 MG ORAL TABLET 1 four times a day as needed for nausea/ vomiting PROMETHAZINE HCL 25 MG ORAL TABLET 630540 PROMETHAZINE HCL Inactive PREDNISONE 20 MG ORAL TABLET 1 tablet twice daily for 2 days, then 1 tablet once daily for 2 days PREDNISONE 20 MG ORAL TABLET 108764 PREDNISONE Inactive WARFARIN SODIUM 4 MG ORAL TABLET 1 tab every evening WARFARIN SODIUM 4 MG ORAL TABLET 042155 WARFARIN SODIUM Inactive LOMOTIL 2.5-0.025 MG ORAL TABLET 1 to 2 four times a day as needed for diarrhea LOMOTIL 2.5-0.025 MG ORAL TABLET 8693962 DIPHENOXYLATE-ATROPINE Inactive IBUPROFEN 800 MG ORAL TABLET 1 tab every 8 hours as needed 07/12 IBUPROFEN 800 MG ORAL TABLET 224079 IBUPROFEN Inactive PREDNISONE 20 MG ORAL TABLET 2 tablets today, then 1 tablet days 2 through 4 PREDNISONE 20 MG ORAL TABLET 531864 PREDNISONE Inactive GABAPENTIN 300 MG ORAL CAPSULE 1 po q hs for nerve pain GABAPENTIN 300 MG ORAL CAPSULE 522871 GABAPENTIN Inactive TRAMADOL HCL 50 MG ORAL TABLET 1 po tid with ES Tylenol TRAMADOL HCL 50 MG ORAL TABLET 767994 TRAMADOL HCL Inactive PROAIR HFA 108 (90 BASE) MCG/ACT INHALATION AEROSOL SOLUTION 1-2 puffs four times a day as needed PROAIR HFA 108 (90 BASE) MCG/ACT INHALATION AEROSOL SOLUTION ALBUTEROL SULFATE Inactive PREDNISONE 20 MG ORAL TABLET two tabs by mouth today, then one tab by mouth days two and three PREDNISONE 20 MG ORAL TABLET 184717 PREDNISONE Inactive TESSALON PERLES 100 MG ORAL CAPSULE 1-2 tablet by mouth 3 times daily 04/16 TESSALON PERLES 100 MG ORAL CAPSULE 357458 BENZONATATE Inactive PREDNISONE 10 MG ORAL TABLET 1 tablet by mouth daily PREDNISONE 10 MG ORAL TABLET 857209 PREDNISONE Inactive AZITHROMYCIN 250 MG ORAL TABLET 2 po qd x 1 day, then 1 po qd x 4 days 10/16 AZITHROMYCIN 250 MG ORAL TABLET 531973 AZITHROMYCIN Inactive AZITHROMYCIN 250 MG ORAL TABLET 2 po qd x 1 day, then 1 po qd x 4 days 10/21 AZITHROMYCIN 250 MG ORAL TABLET 512465 AZITHROMYCIN Inactive NYSTATIN-TRIAMCINOLONE 991891-4.1 UNIT/GM-% EXTERNAL CREAM Apply to area BID NYSTATIN-TRIAMCINOLONE 562060-3.1 UNIT/GM-% EXTERNAL CREAM 0567799 NYSTATIN-TRIAMCINOLONE Inactive AZITHROMYCIN 250 MG ORAL TABLET 2 po qd x 1 day, then 1 po qd x 4 days 05/07 AZITHROMYCIN 250 MG ORAL TABLET 631080 AZITHROMYCIN Inactive AZITHROMYCIN 250 MG ORAL TABLET 2 po qd x 1 day, then 1 po qd x 4 days 10/13 AZITHROMYCIN 250 MG ORAL TABLET 160362 AZITHROMYCIN Inactive AZITHROMYCIN 250 MG ORAL TABLET 2 po qd x 1 day, then 1 po qd x 4 days 07/12 AZITHROMYCIN 250 MG ORAL TABLET 987216 AZITHROMYCIN Inactive PREDNISONE 20 MG ORAL TABLET 2 tabs daily for 3 days, 1 tab daily for 3 days, 1/2 tab daily for 2 days PREDNISONE 20 MG ORAL TABLET 682226 PREDNISONE Inactive DOXYCYCLINE HYCLATE 100 MG ORAL CAPSULE 1 cap by mouth BID x10 days DOXYCYCLINE HYCLATE 100 MG ORAL CAPSULE 6201315 DOXYCYCLINE HYCLATE Inactive ZITHROMAX 250 MG ORAL TABLET Take two (2 ) tablets day one, then one (1) tablet a day for four (4) more days ZITHROMAX 250 MG ORAL TABLET 999499 AZITHROMYCIN Inactive Advance Directives Directive Description Start [...] % 11.0-15.0 platelet count 172 THOUSAND/UL 10*3/mm3 846-585 5801/04/12 mean platelet volume 8.6 fL 7.5-12.5 Lab Report: Prothrombin Time Hemochron - Coagulation prothrombin time (patient) 33.0 SECS s 18.9-24.9 Encounters Code Encounter Date Provider Facility CPT-18084 Level 3 Est. Patient 15:59:25 OPERATIONS ACCOUNTANT Piotr Daley [facility] CPT-40636 Level 3 Est. Patient 12:33:59 OPERATIONS ACCOUNTANT Piotr Daley [facility] CPT-17024 Level 3 Est. Patient 15:56:17 OPERATIONS ACCOUNTANT Piotr Daley [facility] CPT-26695 Level 3 Est. Patient 10:34:54 OPERATIONS ACCOUNTANT Piotr Daley [facility] CPT-13422 Level 3 Est. Patient 17:10:19 CDJose Harris APRN [facility] CPT-12857 Level 3 Est. Patient 10:48:17 OPERATIONS ACCOUNTANT Matthew Rangel MD [facility] CPT-33899 Level 4 Est. Patient 17:15:07 OPERATIONS ACCOUNTANT Piotr Daley [facility] CPT-80862 Level 3 Est. Patient 12:46:13 OPERATIONS ACCOUNTANT Piotr Daley [facility] CPT-23098 Level 3 Est. Patient 15:14:31 OPERATIONS ACCOUNTANT Piotr Daley [facility] CPT-58915 Level 3 Est. Patient 09:20:13 OPERATIONS ACCOUNTANT Piotr Daley [facility] CPT-94880 Level 3 Est. Patient 09:49:40 CDT Piotr Daley [facility] CPT-16280 Level 3 Est. Patient 16:28:11 CDT Piotr Daley [facility] CPT-36345 Level 3 Est. Patient 12:41:58 OPERATIONS ACCOUNTANT Piotr Daley [facility] CPT-65843 Level 3 Est. Patient 09:21:24 CDT Piotr Daley [facility] CPT-18946 Level 3 Est. Patient 09:21:11 CDT Piotr Daley [facility] CPT-74788 Level 3 Est. Patient 11:16:29 OPERATIONS ACCOUNTANT Piotr Daley [facility] CPT-56473 Level 3 Est. Patient 18:40:19 OPERATIONS ACCOUNTANT Piotr Daley [facility] CPT-91499 Level 3 Est. Patient 19:30:50 CDT Piotr Daley [facility] CPT-56871 Level 3 Est. Patient 22:06:44 CDT Katrina Rinaldi MD PhD [facility] CPT-95066 Level 3 Est. Patient 14:20:00 CDT Piotr Daley [facility] CPT-87872 Level 3 Est. Patient 14:15:22 OPERATIONS ACCOUNTANT Piotr Daley [facility] CPT-66393 Level 3 Est. Patient 20:19:57 OPERATIONS ACCOUNTANT Piotr Daley [facility] CPT-60129 Level 3 Est. Patient 16:44:32 CDT Piotr Daley [facility] CPT-86083 Level 3 Est. Patient 08:48:46 OPERATIONS ACCOUNTANT Piotr Daley [facility] CPT-70438 Level 3 Est. Patient 21:01:21 CDT Piotr Daley [facility] Procedures Code Procedure Name Date Entry Date Standard Description CPT-46229 Sacroiliac jt < 3V - XRAY USE ONLY 16:45:19 OPERATIONS ACCOUNTANT 05/09 CPT-49139 LS spine comp w obliques - XRAY USE ONLY 14:52:26 [facility] CPT-29492 Chest, 2 views 12:55:58 OPERATIONS ACCOUNTANT CPT-G0439 Subsequent Annual Wellness Exam 10:34:52 OPERATIONS ACCOUNTANT CPT-01727 BMP - LAB USE ONLY 17:19:11 OPERATIONS ACCOUNTANT CPT-62244 PT/INR - LAB USE ONLY 17:19:10 [facility] CPT-87981 Venipuncture Draw Fee 17:19:10 [facility] CPT-46712 PT/INR - LAB USE ONLY 08:12:25 [facility] CPT-73396 Venipuncture Draw Fee 08:12:24 OPERATIONS ACCOUNTANT CPT-05451 Venipuncture Draw Fee 11:31:07 OPERATIONS ACCOUNTANT CPT-06730 TPSA - LAB USE ONLY 11:31:07 OPERATIONS ACCOUNTANT CPT-91953 PT/INR - LAB USE ONLY 11:31:07 OPERATIONS ACCOUNTANT CPT-G0439 Subsequent Annual Wellness Exam 09:59:29 OPERATIONS ACCOUNTANT CPT-93654 Creatinine - LAB USE ONLY 14:37:55 OPERATIONS ACCOUNTANT CPT-55004 PT/INR - LAB USE ONLY 14:37:55 OPERATIONS ACCOUNTANT CPT-43210 Venipuncture Draw Fee 14:37:55 OPERATIONS ACCOUNTANT CPT-30527 LS spine comp w obliques - XRAY USE ONLY 12:59:25 OPERATIONS ACCOUNTANT CPT-71449 PT/INR - LAB USE ONLY 13:49:20 CDT CPT-72205 Venipuncture Draw Fee 13:49:19 CDT CPT-72976 PT/INR - LAB USE ONLY 15:48:49 CDT CPT-08467 Venipuncture Draw Fee 15:48:49 CDT CPT-46319 Venipuncture Draw Fee 11:31:59 CDT CPT-39301 PT/INR - LAB USE ONLY 11:31:59 CDT CPT-59761 Venipuncture Draw Fee 13:29:15 CDT CPT-02772 Thoracolumbar AP/Lat 15:19:19 OPERATIONS ACCOUNTANT CPT-G0438 Initial Annual Wellness Exam 12:18:54 OPERATIONS ACCOUNTANT CPT-55447 Knee 3V 09:57:38 CDT CPT-OV Office Visit 15:45:01 OPERATIONS ACCOUNTANT CPT-24099 Abd compl w upright 17:10:25 CDT
--- OUTSIDE RECORDS SUMMARY | 2018-07-18 07:43 | XMS REPORT | Clinical Summary ---
Author Author Admin, [employer] Organization [facility] Address Unknown Phone Unavailable Allergies, Adverse Reactions, [...] neoplasm of prostate V10.46 Active Alina Meyers [employer] Personal history of malignant neoplasm of prostate Coronary artery disease 414.00 Active Alina Meyers [employer] Coronary atherosclerosis of unspecified type of vessel, [place] or graft Back pain, thoracic region, [...] po tid with ES Tylenol TRAMADOL HCL 80318912531 Active Piotr Daley DO Active WARFARIN SODIUM 5 MG TABS 1 tablet daily except for Saturday and Sat 1/ tablet. WARFARIN SODIUM 54624137136 Active Hilary Ma MA Active PREDNISONE 20 MG TAB 2 tablets today, then 1 tablet days 2 through 4 PREDNISONE 97667510489 No Longer Active Piotr Daley DO Active AZITHROMYCIN 250 MG TABS 2 po qd x 1 day, then 1 po qd x 4 days AZITHROMYCIN 21146490566 No Longer Active Piotr Daley DO Active IBUPROFEN 800 MG TABS 1 tab every 8 hours as needed IBUPROFEN 54002152600 No Longer Active Piotr Daley DO Active LOMOTIL 2.5-0.025 MG TAB 1 to 2 four times a day as needed for diarrhea 10/13 DIPHENOXYLATE-ATROPINE 53600511262 No Longer Active Piotr Daley DO Active WARFARIN SODIUM 4 MG TABS 1 tab every evening WARFARIN SODIUM 31470187175 No Longer Active Piotr Daley DO Active PREDNISONE 20 MG TAB 1 tablet twice daily for 2 days, then 1 tablet once daily for 2 days PREDNISONE 02001503185 No Longer Active Piotr Daley DO Active PROMETHAZINE HCL 25 MG TABS 1 four times a day as needed for nausea/vomiting PROMETHAZINE HCL 31729573324 No Longer Active Piotr Daley DO Active TUSSIONEX PENNKINETIC ER 10-8 MG/5ML LQCR 5ml po q12hr PRN Cough HYDROCOD POLST-CHLORPHEN POLST 72250577076 No Longer Active Piotr Daley DO Active AZITHROMYCIN 250 MG TABS 2 po qd x 1 day, then 1 po qd x 4 days AZITHROMYCIN 34671566254 No Longer Active Piotr Daley DO Active AZITHROMYCIN 250 MG TABS 2 po qd x 1 day, then 1 po qd x 4 days AZITHROMYCIN 21192515512 No Longer Active Piotr Daley DO Active LISINOPRIL-HYDROCHLOROTHIAZIDE 10-12.5 MG TABS 1 tab by mouth daily LISINOPRIL-HYDROCHLOROTHIAZIDE 33828006018 Active Hilary Ma MA Active LISINOPRIL 10 MG TABS 1/2-1 tab po every other day LISINOPRIL 06503957721 No Longer Active Piotr Daley DO Active VENTOLIN HFA 108 (90 BASE) MCG/ACT AERS 2 puffs four times a day PRN cough ALBUTEROL SULFATE 21625259731 No Longer Active Piotr Daley DO Active NYSTATIN-TRIAMCINOLONE 322082-0.1 UNIT/GM-% CREA Apply to area BID NYSTATIN-TRIAMCINOLONE 10577158939 No Longer Active Alena Chavira OFFAL WORKER Active PHISOHEX 3 % LIQD Use Directed HEXACHLOROPHENE 39842357294 No Longer Active Sandra Wagener Active AZITHROMYCIN 250 MG TABS 2 po qd x 1 day, then 1 po qd x 4 days AZITHROMYCIN 21927801430 No Longer Active Katrina Rinaldi MD PhD Active AZITHROMYCIN 250 MG TABS 2 po qd x 1 day, then 1 po qd x 4 days AZITHROMYCIN 95080540112 No Longer Active Piotr Daley DO Active AZITHROMYCIN 500 MG SOLR 1 po q day AZITHROMYCIN 08192396422 No Longer Active Piotr Daley DO Active NYSTATIN-TRIAMCINOLONE 360561-2.1 UNIT/GM-% CREA apply bid 08/19 NYSTATIN-TRIAMCINOLONE 92751759671 No Longer Active Piotr W Edi DO Active IBUPROFEN 800 MG TABS 1 po q 8 hours prn pain sparinly IBUPROFEN 98386107860 No Longer Active Piotr Daley DO Active VITAMIN D3 5000 UNIT CAPS 1 po daily CHOLECALCIFEROL 53529507634 Active Piotr Wilson Edi DO Active IBUPROFEN 800 MG TABS 1 po q 8 hours prn pain sparinly IBUPROFEN 800 MG TABS 159643 IBUPROFEN Inactive NYSTATIN-TRIAMCINOLONE 177555-2.1 UNIT/GM-% CREA apply bid 08/19 NYSTATIN-TRIAMCINOLONE 271166-1.1 UNIT/GM-% CREA 3605765 NYSTATIN- TRIAMCINOLONE Inactive AZITHROMYCIN 500 MG SOLR 1 po q day AZITHROMYCIN 500 MG SOLR 20766804123 AZITHROMYCIN Inactive VENTOLIN HFA 108 (90 BASE) MCG/ACT AERS 2 puffs four times a day PRN cough VENTOLIN HFA 108 (90 BASE) MCG/ACT AERS ALBUTEROL SULFATE Inactive LISINOPRIL 10 MG TABS 1/2-1 tab po every other day LISINOPRIL 10 MG TABS 504042 LISINOPRIL Inactive TUSSIONEX PENNKINETIC ER 10-8 MG/5ML LQCR 5ml po q12hr PRN Cough TUSSIONEX PENNKINETIC ER 10-8 MG/5ML LQCR HYDROCOD POLST- CHLORPHEN POLST Inactive PROMETHAZINE HCL 25 MG TABS 1 four times a day as needed for nausea/vomiting PROMETHAZINE HCL 25 MG TABS 135009 PROMETHAZINE HCL Inactive PREDNISONE 20 MG TAB 1 tablet twice daily for 2 days, then 1 tablet once daily for 2 days PREDNISONE 20 MG TAB 402785 PREDNISONE Inactive WARFARIN SODIUM 4 MG TABS 1 tab every evening WARFARIN SODIUM 4 MG TABS 105594 WARFARIN SODIUM Inactive LOMOTIL 2.5-0.025 MG TAB 1 to 2 four times a day as needed for diarrhea 10/13 LOMOTIL 2.5-0.025 MG TAB 9413027 DIPHENOXYLATE-ATROPINE Inactive IBUPROFEN 800 MG TABS 1 tab every 8 hours as needed IBUPROFEN 800 MG TABS 641713 IBUPROFEN Inactive PREDNISONE 20 MG TAB 2 tablets today, then 1 tablet days 2 through 4 PREDNISONE 20 MG TAB 562021 PREDNISONE Inactive AZITHROMYCIN 250 MG TABS 2 po qd x 1 day, then 1 po qd x 4 days AZITHROMYCIN 250 MG TABS 0385101 AZITHROMYCIN Inactive AZITHROMYCIN 250 MG TABS 2 po qd x 1 day, then 1 po qd x 4 days AZITHROMYCIN 250 MG TABS 5771048 AZITHROMYCIN Inactive NYSTATIN-TRIAMCINOLONE 926169-7.1 UNIT/GM-% CREA Apply to area BID NYSTATIN-TRIAMCINOLONE 632733-7.1 UNIT/GM-% CREA 2280011 NYSTATIN-TRIAMCINOLONE Inactive AZITHROMYCIN 250 MG TABS 2 po qd x 1 day, then 1 po qd x 4 days AZITHROMYCIN 250 MG TABS 4942156 AZITHROMYCIN Inactive AZITHROMYCIN 250 MG TABS 2 po qd x 1 day, then 1 po qd x 4 days AZITHROMYCIN 250 MG TABS 3641015 AZITHROMYCIN Inactive AZITHROMYCIN 250 MG TABS 2 po qd x 1 day, then 1 po qd x 4 days AZITHROMYCIN 250 MG TABS 0925386 AZITHROMYCIN Inactive Advance Directives Directive Description Start [...] Management - Coagulation international normalized ratio (INR) 2.1 Lab Report: [...] MICROALBUMIN, Comp. Metabolic Panel, CBC - Chemistry carbon dioxide, venous blood 30.0 mmol/L 21.0-32.0 blood glucose 89 mg/dL 65-110 urea nitrogen, blood 11 mg/dL 7-18 creatinine, serum 1.00 mg/dL 0.60-1.30 alanine aminotransferase (SGPT), serum 25 U/L 12-78 aspartate aminotransferase (SGOT), serum 19 U/L 15-37 calcium, serum 8.1 mg/dL 8.5-10.1 bilirubin, serum, total 0.50 mg/dL 0.00-1.00 chloride, serum 103 mmol/L 98-107 potassium, serum 4.2 mmol/L 3.5-5.2 sodium, serum 140 mmol/L 490-260 0840/07/17 albumin/creatinine ratio, urine < 30 mg/g mg/g{creat} 0-29 Lab Report: MICROALBUMIN, Comp. Metabolic Panel, CBC [...] Prothrombin Time - Coagulation prothrombin time (patient) 17.3 SECS s 11.1-13.4 prothrombin time (patient) 18.8 SECS s 11.1-13.4 [...] ratio (INR) 2.6 1.0-3.5 prothrombin time (patient) 16.6 SECS s 11.1-13.4 international normalized ratio (INR) 1.9 1.0-3.5 international normalized ratio (INR) 1.99 1.0-3.5 prothrombin time (patient) 18.9 SECS s [...] strip Negative Negative bilirubin, urine Negative Negative appearance, urine Clear Clear specific gravity, urine 1.025 1.000-1.030 pH, urine, semiquantitative 6.0 5.0-8.5 urobilinogen, urine, semiquantitative (dipstick) 0.2 Normal leukocyte esterase, urine, by dipstick Negative Negative nitrite, urine, semiquantitative Negative Negative urine color Yellow Colorless;Lightyellow;Straw;Yellow Encounters Code Encounter Date Provider Facility CPT-22428 Level 3 Est. Patient 15:14:31 ORGANIC CHEMISTRY TEACHER Piotr Daley [facility] CPT-75235 Level 3 Est. Patient 09:20:13 ORGANIC CHEMISTRY TEACHER Piotr Daley [facility] CPT-92419 Level 3 Est. Patient 09:49:40 CDT Piotr Daley [facility] CPT-25809 Level 3 Est. Patient 16:28:11 CDT Piotr Wilson [facility] CPT-51474 Level 3 Est. Patient 12:41:58 ORGANIC CHEMISTRY TEACHER Piotr Daley [facility] CPT-31835 Level 3 Est. Patient 09:21:24 CDT Piotr Daley [facility] CPT-15878 Level 3 Est. Patient 09:21:11 CDT Piotr Daley [facility] CPT-61569 Level 3 Est. Patient 11:16:29 ORGANIC CHEMISTRY TEACHER Piotr Daley [facility] CPT-81964 Level 3 Est. Patient 18:40:19 ORGANIC CHEMISTRY TEACHER Piotr Daley [facility] CPT-00737 Level 3 Est. Patient 19:30:50 CDT Piotr Daley [facility] CPT-74445 Level 3 Est. Patient 22:06:44 CDT Katrina Rinaldi MD [facility] CPT-71254 Level 3 Est. Patient 14:20:00 CDT Piotr Daley [facility] CPT-14159 Level 3 Est. Patient 14:15:22 ORGANIC CHEMISTRY TEACHER Piotr Daley [facility] CPT-77193 Level 3 Est. Patient 20:19:57 ORGANIC CHEMISTRY TEACHER Piotr Daley [facility] CPT-27797 Level 3 Est. Patient 16:44:32 CDT Piotr Wilson [facility] CPT-49886 Level 3 Est. Patient 08:48:46 ORGANIC CHEMISTRY TEACHER Piotr Daley [facility] CPT-24365 Level 3 Est. Patient 21:01:21 CDT Piotr Wilson [facility] Procedures Code Procedure Name Date Entry Date Standard Description CPT-18318 Thoracolumbar AP/Lat 15:19:19 ORGANIC CHEMISTRY TEACHER CPT-G0438 Initial Annual Wellness Exam 12:18:54 ORGANIC CHEMISTRY TEACHER CPT-63577 Knee 3V 09:57:38 CDT CPT-OV Office Visit 15:45:01 ORGANIC CHEMISTRY TEACHER CPT-99077 Abd compl w upright 17:10:25 CDT
--- OUTSIDE RECORDS SUMMARY | 2018-07-18 07:44 | XMS REPORT | Clinical Summary ---
Author Author Admin, E Organization [employer] Address Unknown Phone Unavailable Allergies, Adverse Reactions, [...] Coronary atherosclerosis of unspecified type of vessel, bishop paiute or graft Back pain, thoracic region, left [...] po q hs for nerve pain GABAPENTIN 69609773194 Active Piotr Daley DO Active WARFARIN SODIUM 5 MG TABS 1 tablet daily WARFARIN SODIUM 13280391599 Active Simi Meyers Active TRAMADOL HCL 50 MG TABS 1 po tid with ES Tylenol TRAMADOL HCL 92093787796 Active Piotr Daley DO Active PREDNISONE 20 MG TAB 2 tablets today, then 1 tablet days 2 through 4 PREDNISONE 12658155767 No Longer Active Piotr Daley DO Active AZITHROMYCIN 250 MG TABS 2 po qd x 1 day, then 1 po qd x 4 days AZITHROMYCIN 87900125865 No Longer Active Piotr Daley DO Active IBUPROFEN 800 MG TABS 1 tab every 8 hours as needed IBUPROFEN 45648355013 No Longer Active Piotr Daley DO Active LOMOTIL 2.5-0.025 MG TAB 1 to 2 four times a day as needed for diarrhea 10/13 DIPHENOXYLATE-ATROPINE 26928589468 No Longer Active Piotr Daley DO Active WARFARIN SODIUM 4 MG TABS 1 tab every evening WARFARIN SODIUM 33522839317 No Longer Active Piotr Daley DO Active PREDNISONE 20 MG TAB 1 tablet twice daily for 2 days, then 1 tablet once daily for 2 days PREDNISONE 76513307425 No Longer Active Piotr Daley DO Active PROMETHAZINE HCL 25 MG TABS 1 four times a day as needed for nausea/vomiting PROMETHAZINE HCL 31257765013 No Longer Active Piotr Daley DO Active TUSSIONEX PENNKINETIC ER 10-8 MG/5ML LQCR 5ml po q12hr PRN Cough HYDROCOD POLST-CHLORPHEN POLST 35760313527 No Longer Active Piotr Daley DO Active AZITHROMYCIN 250 MG TABS 2 po qd x 1 day, then 1 po qd x 4 days AZITHROMYCIN 83832336078 No Longer Active Piotr Daley DO Active AZITHROMYCIN 250 MG TABS 2 po qd x 1 day, then 1 po qd x 4 days AZITHROMYCIN 31145900930 No Longer Active Piotr Daley DO Active LISINOPRIL-HYDROCHLOROTHIAZIDE 10-12.5 MG TABS 1 tab by mouth daily LISINOPRIL-HYDROCHLOROTHIAZIDE 20892183702 Active Simi Meyers Active LISINOPRIL 10 MG TABS 1/2-1 tab po every other day LISINOPRIL 86891281856 No Longer Active Piotr Daley DO Active VENTOLIN HFA 108 (90 BASE) MCG/ACT AERS 2 puffs four times a day PRN cough ALBUTEROL SULFATE 13535239533 No Longer Active Piotr Daley DO Active NYSTATIN-TRIAMCINOLONE 889055-3.1 UNIT/GM-% CREA Apply to area BID NYSTATIN-TRIAMCINOLONE 35006043957 No Longer Active Alena Chavira ENFORCEMENT MANAGER Active PHISOHEX 3 % LIQD Use Directed HEXACHLOROPHENE 74430605742 No Longer Active Sandra Bradley Active AZITHROMYCIN 250 MG TABS 2 po qd x 1 day, then 1 po qd x 4 days AZITHROMYCIN 32640573336 No Longer Active Katrina Rinaldi MD PhD Active AZITHROMYCIN 250 MG TABS 2 po qd x 1 day, then 1 po qd x 4 days AZITHROMYCIN 28387026841 No Longer Active Piotr Daley DO Active AZITHROMYCIN 500 MG SOLR 1 po q day AZITHROMYCIN 12488763338 No Longer Active Piotr Daley DO Active NYSTATIN-TRIAMCINOLONE 821841-7.1 UNIT/GM-% CREA apply bid 08/19 NYSTATIN-TRIAMCINOLONE 97537654579 No Longer Active Piotr Daley DO Active IBUPROFEN 800 MG TABS 1 po q 8 hours prn pain sparinly IBUPROFEN 78088149874 No Longer Active Piotr Daley DO Active VITAMIN D3 5000 UNIT CAPS 1 po daily CHOLECALCIFEROL 45357651528 Active Piotr Daley DO Active IBUPROFEN 800 MG TABS 1 po q 8 hours prn pain sparinly IBUPROFEN 800 MG TABS 527219 IBUPROFEN Inactive NYSTATIN-TRIAMCINOLONE 328636-3.1 UNIT/GM-% CREA apply bid 08/19 NYSTATIN-TRIAMCINOLONE 618651-0.1 UNIT/GM-% CREA 5248293 NYSTATIN- TRIAMCINOLONE Inactive AZITHROMYCIN 500 MG SOLR 1 po q day AZITHROMYCIN 500 MG SOLR 46268593108 AZITHROMYCIN Inactive VENTOLIN HFA 108 (90 BASE) MCG/ACT AERS 2 puffs four times a day PRN cough VENTOLIN HFA 108 (90 BASE) MCG/ACT AERS ALBUTEROL SULFATE Inactive LISINOPRIL 10 MG TABS 1/2-1 tab po every other day LISINOPRIL 10 MG TABS 974875 LISINOPRIL Inactive TUSSIONEX PENNKINETIC ER 10-8 MG/5ML LQCR 5ml po q12hr PRN Cough TUSSIONEX PENNKINETIC ER 10-8 MG/5ML LQCR HYDROCOD POLST- CHLORPHEN POLST Inactive PROMETHAZINE HCL 25 MG TABS 1 four times a day as needed for nausea/vomiting PROMETHAZINE HCL 25 MG TABS 524464 PROMETHAZINE HCL Inactive PREDNISONE 20 MG TAB 1 tablet twice daily for 2 days, then 1 tablet once daily for 2 days PREDNISONE 20 MG TAB 152191 PREDNISONE Inactive WARFARIN SODIUM 4 MG TABS 1 tab every evening WARFARIN SODIUM 4 MG TABS 023326 WARFARIN SODIUM Inactive LOMOTIL 2.5-0.025 MG TAB 1 to 2 four times a day as needed for diarrhea 10/13 LOMOTIL 2.5-0.025 MG TAB 8466174 DIPHENOXYLATE-ATROPINE Inactive IBUPROFEN 800 MG TABS 1 tab every 8 hours as needed IBUPROFEN 800 MG TABS 342804 IBUPROFEN Inactive PREDNISONE 20 MG TAB 2 tablets today, then 1 tablet days 2 through 4 PREDNISONE 20 MG TAB 825317 PREDNISONE Inactive AZITHROMYCIN 250 MG TABS 2 po qd x 1 day, then 1 po qd x 4 days AZITHROMYCIN 250 MG TABS 9134442 AZITHROMYCIN Inactive AZITHROMYCIN 250 MG TABS 2 po qd x 1 day, then 1 po qd x 4 days AZITHROMYCIN 250 MG TABS 8870483 AZITHROMYCIN Inactive NYSTATIN-TRIAMCINOLONE 861714-5.1 UNIT/GM-% CREA Apply to area BID NYSTATIN-TRIAMCINOLONE 997370-3.1 UNIT/GM-% CREA 1245619 NYSTATIN-TRIAMCINOLONE Inactive AZITHROMYCIN 250 MG TABS 2 po qd x 1 day, then 1 po qd x 4 days AZITHROMYCIN 250 MG TABS 5076919 AZITHROMYCIN Inactive AZITHROMYCIN 250 MG TABS 2 po qd x 1 day, then 1 po qd x 4 days AZITHROMYCIN 250 MG TABS 0804793 AZITHROMYCIN Inactive AZITHROMYCIN 250 MG TABS 2 po qd x 1 day, then 1 po qd x 4 days AZITHROMYCIN 250 MG TABS 6340778 AZITHROMYCIN Inactive Advance Directives Directive Description Start [...] Panel - Chemistry sodium, serum 141 mmol/L 743-159 0980/06/28 carbon dioxide, venous blood 31.0 mmol/L 21.0-32.0 [...] ratio (INR) 3.3 1.0-3.5 prothrombin time (patient) 23.1 SECS s [...] 1.0-3.5 Encounters Code Encounter Date Provider Facility CPT-71081 Level 4 Est. Patient 17:15:07 CERAMIC CAPACITOR PROCESSOR Piotr Daley [facility] CPT-47561 Level 3 Est. Patient 12:46:13 CERAMIC CAPACITOR PROCESSOR Piotr Daley [facility] CPT-89818 Level 3 Est. Patient 15:14:31 CERAMIC CAPACITOR PROCESSOR Piotr Wilson [facility] CPT-42228 Level 3 Est. Patient 09:20:13 CERAMIC CAPACITOR PROCESSOR Piotr Daley [facility] CPT-02900 Level 3 Est. Patient 09:49:40 CDT Piotr Wilson [facility] CPT-09610 Level 3 Est. Patient 16:28:11 [facility] Level 3 Est. Patient 12:41:58 CERAMIC CAPACITOR PROCESSOR Piotr Daley [facility] CPT-09551 Level 3 Est. Patient 09:21:24 CDT Piotr Daley [facility] CPT-35149 Level 3 Est. Patient 09:21:11 CDT Piotr Daley [facility] CPT-04378 Level 3 Est. Patient 11:16:29 CERAMIC CAPACITOR PROCESSOR Piotr Daley [facility] CPT-45525 Level 3 Est. Patient 18:40:19 CERAMIC CAPACITOR PROCESSOR Piotr Daley [facility] CPT-69579 Level 3 Est. Patient 19:30:50 CDT Piotr Daley [facility] CPT-10516 Level 3 Est. Patient 22:06:44 CDT Katrina Rinaldi MD [facility] CPT-86221 Level 3 Est. Patient 14:20:00 CDT Piotr Daley [facility] CPT-86474 Level 3 Est. Patient 14:15:22 CERAMIC CAPACITOR PROCESSOR Piotr Daley [facility] CPT-82701 Level 3 Est. Patient 20:19:57 CERAMIC CAPACITOR PROCESSOR Piotr Daley [facility] CPT-22210 Level 3 Est. Patient 16:44:32 CDT Piotr Daley [facility] CPT-77188 Level 3 Est. Patient 08:48:46 CERAMIC CAPACITOR PROCESSOR Piotr Daley [facility] CPT-65970 Level 3 Est. Patient 21:01:21 CDT Piotr Wilson [facility] Procedures Code Procedure Name Date Entry Date Standard Description CPT-07958 PT/INR - LAB USE ONLY 08:12:25 CERAMIC CAPACITOR PROCESSOR CPT-90148 Venipuncture Draw Fee 08:12:24 CERAMIC CAPACITOR PROCESSOR CPT-01449 Venipuncture Draw Fee 11:31:07 CERAMIC CAPACITOR PROCESSOR CPT-26131 TPSA - LAB USE ONLY 11:31:07 CERAMIC CAPACITOR PROCESSOR CPT-45817 PT/INR - LAB USE ONLY 11:31:07 CERAMIC CAPACITOR PROCESSOR CPT-G0439 Subsequent Annual Wellness Exam 09:59:29 CERAMIC CAPACITOR PROCESSOR CPT-00448 Creatinine - LAB USE ONLY 14:37:55 CERAMIC CAPACITOR PROCESSOR CPT-84183 PT/INR - LAB USE ONLY 14:37:55 CERAMIC CAPACITOR PROCESSOR CPT-43194 Venipuncture Draw Fee 14:37:55 CERAMIC CAPACITOR PROCESSOR CPT-44175 LS spine comp w obliques - XRAY USE ONLY 12:59:25 CERAMIC CAPACITOR PROCESSOR CPT-36641 PT/INR - LAB USE ONLY 13:49:20 CDT CPT-83519 Venipuncture Draw Fee 13:49:19 CDT CPT-50410 PT/INR - LAB USE ONLY 15:48:49 CDT CPT-15253 Venipuncture Draw Fee 15:48:49 CDT CPT-51718 Venipuncture Draw Fee 11:31:59 CDT CPT-86521 PT/INR - LAB USE ONLY 11:31:59 CDT CPT-47022 Venipuncture Draw Fee 13:29:15 CDT CPT-37909 Thoracolumbar AP/Lat 15:19:19 CERAMIC CAPACITOR PROCESSOR CPT-G0438 Initial Annual Wellness Exam 12:18:54 CERAMIC CAPACITOR PROCESSOR CPT-97284 Knee 3V 09:57:38 CDT CPT-OV Office Visit 15:45:01 CERAMIC CAPACITOR PROCESSOR CPT-45527 Abd compl w upright 17:10:25 CDT
--- OUTSIDE RECORDS SUMMARY | 2018-07-18 07:45 | XMS REPORT | Clinical Summary ---
Author Author Admin, E Organization [employer] Address Unknown Phone Unavailable Allergies, Adverse Reactions, [...] Coronary atherosclerosis of unspecified type of vessel, mentasta or graft Back pain, thoracic region, left [...] po tid with ES Tylenol TRAMADOL HCL 64562871281 Active Piotr Daley DO Active WARFARIN SODIUM 5 MG TABS 1 tablet daily except for Saturday and Sat 1/2 tablet. WARFARIN SODIUM 00975776190 Active Hilary Ma MA Active PREDNISONE 20 MG TAB 2 tablets today, then 1 tablet days 2 through 4 PREDNISONE 96522420358 No Longer Active Piotr Daley DO Active AZITHROMYCIN 250 MG TABS 2 po qd x 1 day, then 1 po qd x 4 days AZITHROMYCIN 43858956058 No Longer Active Piotr Daley DO Active IBUPROFEN 800 MG TABS 1 tab every 8 hours as needed IBUPROFEN 54968624873 No Longer Active Piotr Daley DO Active LOMOTIL 2.5-0.025 MG TAB 1 to 2 four times a day as needed for diarrhea 10/13 DIPHENOXYLATE-ATROPINE 49383806414 No Longer Active Piotr Daley DO Active WARFARIN SODIUM 4 MG TABS 1 tab every evening WARFARIN SODIUM 03434529999 No Longer Active Piotr Daley DO Active PREDNISONE 20 MG TAB 1 tablet twice daily for 2 days, then 1 tablet once daily for 2 days PREDNISONE 57710278590 No Longer Active Piotr Daley DO Active PROMETHAZINE HCL 25 MG TABS 1 four times a day as needed for nausea/vomiting PROMETHAZINE HCL 43411226986 No Longer Active Piotr Daley DO Active TUSSIONEX PENNKINETIC ER 10-8 MG/5ML LQCR 5ml po q12hr PRN Cough HYDROCOD POLST-CHLORPHEN POLST 15501901741 No Longer Active Piotr Daley DO Active AZITHROMYCIN 250 MG TABS 2 po qd x 1 day, then 1 po qd x 4 days AZITHROMYCIN 52423117348 No Longer Active Piotr Daley DO Active AZITHROMYCIN 250 MG TABS 2 po qd x 1 day, then 1 po qd x 4 days AZITHROMYCIN 33783617853 No Longer Active Piotr Daley DO Active LISINOPRIL-HYDROCHLOROTHIAZIDE 10-12.5 MG TABS 1 tab by mouth daily LISINOPRIL-HYDROCHLOROTHIAZIDE 87741723823 Active Hilary Ma MA Active LISINOPRIL 10 MG TABS 1/2-1 tab po every other day LISINOPRIL 62904500009 No Longer Active Piotr Daley DO Active VENTOLIN HFA 108 (90 BASE) MCG/ACT AERS 2 puffs four times a day PRN cough ALBUTEROL SULFATE 95469141410 No Longer Active Piotr Daley DO Active NYSTATIN-TRIAMCINOLONE 590099-8.1 UNIT/GM-% CREA Apply to area BID NYSTATIN-TRIAMCINOLONE 35933291446 No Longer Active Alena Chavira TOURIST HOME KEEPER Active PHISOHEX 3 % LIQD Use Directed HEXACHLOROPHENE 96857133386 No Longer Active Sandra Milford Active AZITHROMYCIN 250 MG TABS 2 po qd x 1 day, then 1 po qd x 4 days AZITHROMYCIN 99210046941 No Longer Active Katrina Rinaldi MD PhD Active AZITHROMYCIN 250 MG TABS 2 po qd x 1 day, then 1 po qd x 4 days AZITHROMYCIN 75877563475 No Longer Active Piotr Daley DO Active AZITHROMYCIN 500 MG SOLR 1 po q day AZITHROMYCIN 07967882960 No Longer Active Piotr Daley DO Active NYSTATIN-TRIAMCINOLONE 505041-0.1 UNIT/GM-% CREA apply bid 08/19 NYSTATIN-TRIAMCINOLONE 79242570548 No Longer Active Piotr Daley DO Active IBUPROFEN 800 MG TABS 1 po q 8 hours prn pain sparinly IBUPROFEN 49745728512 No Longer Active Piotr Daley DO Active VITAMIN D3 5000 UNIT CAPS 1 po daily CHOLECALCIFEROL 11828896859 Active Piotr Daley DO Active IBUPROFEN 800 MG TABS 1 po q 8 hours prn pain sparinly IBUPROFEN 800 MG TABS 063334 IBUPROFEN Inactive NYSTATIN-TRIAMCINOLONE 336247-1.1 UNIT/GM-% CREA apply bid 08/19 NYSTATIN-TRIAMCINOLONE 042853-3.1 UNIT/GM-% CREA 5824180 NYSTATIN- TRIAMCINOLONE Inactive AZITHROMYCIN 500 MG SOLR 1 po q day AZITHROMYCIN 500 MG SOLR 20181819875 AZITHROMYCIN Inactive VENTOLIN HFA 108 (90 BASE) MCG/ACT AERS 2 puffs four times a day PRN cough VENTOLIN HFA 108 (90 BASE) MCG/ACT AERS ALBUTEROL SULFATE Inactive LISINOPRIL 10 MG TABS 1/2-1 tab po every other day LISINOPRIL 10 MG TABS 196068 LISINOPRIL Inactive TUSSIONEX PENNKINETIC ER 10-8 MG/5ML LQCR 5ml po q12hr PRN Cough TUSSIONEX PENNKINETIC ER 10-8 MG/5ML LQCR HYDROCOD POLST- CHLORPHEN POLST Inactive PROMETHAZINE HCL 25 MG TABS 1 four times a day as needed for nausea/vomiting PROMETHAZINE HCL 25 MG TABS 996866 PROMETHAZINE HCL Inactive PREDNISONE 20 MG TAB 1 tablet twice daily for 2 days, then 1 tablet once daily for 2 days PREDNISONE 20 MG TAB 592601 PREDNISONE Inactive WARFARIN SODIUM 4 MG TABS 1 tab every evening WARFARIN SODIUM 4 MG TABS 735859 WARFARIN SODIUM Inactive LOMOTIL 2.5-0.025 MG TAB 1 to 2 four times a day as needed for diarrhea 10/13 LOMOTIL 2.5-0.025 MG TAB 1439678 DIPHENOXYLATE-ATROPINE Inactive IBUPROFEN 800 MG TABS 1 tab every 8 hours as needed IBUPROFEN 800 MG TABS 946156 IBUPROFEN Inactive PREDNISONE 20 MG TAB 2 tablets today, then 1 tablet days 2 through 4 PREDNISONE 20 MG TAB 013026 PREDNISONE Inactive AZITHROMYCIN 250 MG TABS 2 po qd x 1 day, then 1 po qd x 4 days AZITHROMYCIN 250 MG TABS 1018848 AZITHROMYCIN Inactive AZITHROMYCIN 250 MG TABS 2 po qd x 1 day, then 1 po qd x 4 days AZITHROMYCIN 250 MG TABS 8889788 AZITHROMYCIN Inactive NYSTATIN-TRIAMCINOLONE 030360-8.1 UNIT/GM-% CREA Apply to area BID NYSTATIN-TRIAMCINOLONE 488472-1.1 UNIT/GM-% CREA 9487145 NYSTATIN-TRIAMCINOLONE Inactive AZITHROMYCIN 250 MG TABS 2 po qd x 1 day, then 1 po qd x 4 days AZITHROMYCIN 250 MG TABS 8189474 AZITHROMYCIN Inactive AZITHROMYCIN 250 MG TABS 2 po qd x 1 day, then 1 po qd x 4 days AZITHROMYCIN 250 MG TABS 5020018 AZITHROMYCIN Inactive AZITHROMYCIN 250 MG TABS 2 po qd x 1 day, then 1 po qd x 4 days AZITHROMYCIN 250 MG TABS 8012745 AZITHROMYCIN Inactive Advance Directives Directive Description Start [...] E&M - 3141-9 225.0 [lb_av] Weight Measured Diagnostic Results Date Name [...] mg/g mg/g{creat} 0-29 sodium, serum 140 mmol/L 126-703 3463/07/17 potassium, serum 4.2 mmol/L 3.5-5.2 chloride, serum [...] ratio (INR) 2.3 1.0-3.5 prothrombin time (patient) 16.5 SECS s 11.1-13.4 international normalized ratio (INR) 1.9 1.0-3.5 prothrombin time (patient) 19.9 SECS s 11.1-13.4 international normalized ratio (INR) 2.6 1.0-3.5 prothrombin time (patient) 17.3 SECS s 11.1-13.4 international normalized ratio (INR) 1.99 1.0-3.5 prothrombin time (patient) 17.5 SECS s 11.1-13.4 international normalized ratio (INR) 2.1 1.0-3.5 prothrombin time (patient) 17.5 SECS s 11.1-13.4 international normalized ratio (INR) 2.1 1.0-3.5 Lab Report: Prothrombin Time, Prostatic Specific [...] 5.0-8.5 Encounters Code Encounter Date Provider Facility CPT-23024 Level 3 Est. Patient 15:14:31 TIP INSERTER Piotr Wilson [facility] CPT-33307 Level 3 Est. Patient 09:20:13 TIP INSERTER Piotr Wilson [facility] CPT-19368 Level 3 Est. Patient 09:49:40 CDT Piotr Wilson [facility] CPT-61445 Level 3 Est. Patient 16:28:11 CDT Piotr Wilson [facility] CPT-12730 Level 3 Est. Patient 12:41:58 TIP INSERTER Piotr Wilson [facility] CPT-71769 Level 3 Est. Patient 09:21:24 CDT Piotr Wilson [facility] CPT-53161 Level 3 Est. Patient 09:21:11 CDT Piotr Wilson [facility] CPT-64200 Level 3 Est. Patient 11:16:29 TIP INSERTER Piotr Wilson [facility] CPT-30918 Level 3 Est. Patient 18:40:19 TIP INSERTER Piotr Daley [facility] CPT-77869 Level 3 Est. Patient 19:30:50 CDT Piotr Daley [facility] CPT-15700 Level 3 Est. Patient 22:06:44 CDT Katrina Rinaldi MD [facility] CPT-40120 Level 3 Est. Patient 14:20:00 CDT Piotr Daley [facility] CPT-71010 Level 3 Est. Patient 14:15:22 TIP INSERTER Piotr Daley [facility] CPT-38039 Level 3 Est. Patient 20:19:57 TIP INSERTER Piotr Daley [facility] CPT-43929 Level 3 Est. Patient 16:44:32 CDT Piotr Daley [facility] CPT-88023 Level 3 Est. Patient 08:48:46 TIP INSERTER Piotr Daley [facility] CPT-89369 Level 3 Est. Patient 21:01:21 CDT Piotr Wilson [facility] Procedures Code Procedure Name Date Entry Date Standard Description CPT-23061 Thoracolumbar AP/Lat 15:19:19 TIP INSERTER CPT-G0438 Initial Annual Wellness Exam 12:18:54 TIP INSERTER CPT-06252 Knee 3V 09:57:38 CDT CPT-OV Office Visit 15:45:01 TIP INSERTER CPT-03796 Abd compl w upright 17:10:25 CDT
--- OUTSIDE RECORDS SUMMARY | 2018-07-18 07:46 | XMS REPORT | Clinical Summary ---
Author Author Admin, Bita Organization [employer] Address Unknown Phone Unavailable Allergies, Adverse Reactions, [...] Coronary atherosclerosis of unspecified type of vessel, [place] or graft Back pain, thoracic region, left [...] Knee pain, left ICD-719.46 Inactive Sirisha Chen COLLAR FELLER Actinic keratoses ICD-702.0 Inactive Sirisha Chen COLLAR FELLER Back pain, thoracic region, left ICD-724.1 Inactive Piotr Daley DO Thoracic back pain ICD-724.5 Inactive Sirisha Chen COLLAR FELLER Back pain lumbar ICD-724.2 Inactive Sirisha Chen COLLAR FELLER Insect bite ICD-919.4 Inactive Sirisha Chen COLLAR FELLER Pruritus ICD-698.9 Inactive Sirisha Chen COLLAR FELLER 04/09 Bronchitis-Acute ICD-466.0 Inactive Sirisha Chen COLLAR FELLER Dyspnea ICD-786.09 Inactive Sirisha Chen COLLAR FELLER 05/09 Medication List Medication Instructions Start Date Stop Date Generic Name NDC Status Provider Patient Instruction WARFARIN SODIUM 4 MG ORAL TABLET 1 tablet by mouth daily except 2mg on Saturday and Saturday WARFARIN SODIUM 28226066373 Active Sirisha Chen EZE Active MELOXICAM 15 MG ORAL TABLET 1 po q day for pain with food MELOXICAM 08572324333 Active Piotr Daley DO Active PREDNISONE 10 MG ORAL TABLET 1 tablet by mouth daily PREDNISONE 50940069717 No Longer Active Emelyn Norris Active TESSALON PERLES 100 MG ORAL CAPSULE 1-2 tablet by mouth 3 times daily 04/16 BENZONATATE 80938415201 No Longer Active Emelyn Norris Active PREDNISONE 20 MG ORAL TABLET two tabs by mouth today, then one tab by mouth days two and three PREDNISONE 30636338701 No Longer Active Piotr Daley DO Active CYCLOBENZAPRINE HCL 10 MG ORAL TABLET 1 tablet by mouth three times daily as needed for muscle spasm/pain CYCLOBENZAPRINE HCL 35648544483 Active Sirisha Chen LPN Active ZITHROMAX 250 MG ORAL TABLET Take two (2 ) tablets day one, then one (1) tablet a day for four (4) more days AZITHROMYCIN 01155483333 No Longer Active Piotr Daley DO Active PROAIR HFA 108 (90 BASE) MCG/ACT INHALATION AEROSOL SOLUTION 1-2 puffs four times a day as needed ALBUTEROL SULFATE 04088445320 No Longer Active Emelyn Norris Active DOXYCYCLINE HYCLATE 100 MG ORAL CAPSULE 1 cap by mouth BID x10 days DOXYCYCLINE HYCLATE 37334717947 No Longer Active Nella Harris APRN Active PREDNISONE 20 MG ORAL TABLET 2 tabs daily for 3 days, 1 tab daily for 3 days, 1/2 tab daily for 2 days PREDNISONE 21306667208 No Longer Active Matthew Rangel MD Active TRAMADOL HCL 50 MG ORAL TABLET 1 po tid with ES Tylenol TRAMADOL HCL 01955911303 No Longer Active Matthew Rangel MD Active GABAPENTIN 300 MG ORAL CAPSULE 1 po q hs for nerve pain GABAPENTIN 52117993066 No Longer Active Matthew Rangel MD Active PREDNISONE 20 MG ORAL TABLET 2 tablets today, then 1 tablet days 2 through 4 PREDNISONE 49611315893 No Longer Active Piotr aDley DO Active AZITHROMYCIN 250 MG ORAL TABLET 2 po qd x 1 day, then 1 po qd x 4 days 07/12 AZITHROMYCIN 01378848139 No Longer Active Piotr Daley DO Active IBUPROFEN 800 MG ORAL TABLET 1 tab every 8 hours as needed 07/12 IBUPROFEN 54707936054 No Longer Active Piotr Daley DO Active LOMOTIL 2.5-0.025 MG ORAL TABLET 1 to 2 four times a day as needed for diarrhea DIPHENOXYLATE-ATROPINE 20180029255 No Longer Active Piotr Daley DO Active WARFARIN SODIUM 4 MG ORAL TABLET 1 tab every evening WARFARIN SODIUM 68735006160 No Longer Active Piotr Daley DO Active PREDNISONE 20 MG ORAL TABLET 1 tablet twice daily for 2 days, then 1 tablet once daily for 2 days PREDNISONE 09137337701 No Longer Active Piotr Daley DO Active PROMETHAZINE HCL 25 MG ORAL TABLET 1 four times a day as needed for nausea/ vomiting PROMETHAZINE HCL 93224938750 No Longer Active Piotr Daley DO Active TUSSIONEX PENNKINETIC ER 10-8 MG/5ML ORAL SUSPENSION EXTENDED RELEASE 5ml po q12hr PRN Cough HYDROCOD POLST-CHLORPHEN POLST 65956874752 No Longer Active Piotr Daley DO Active AZITHROMYCIN 250 MG ORAL TABLET 2 po qd x 1 day, then 1 po qd x 4 days 10/13 AZITHROMYCIN 17968463089 No Longer Active Piotr Daley DO Active AZITHROMYCIN 250 MG ORAL TABLET 2 po qd x 1 day, then 1 po qd x 4 days 05/07 AZITHROMYCIN 55170304337 No Longer Active Piotr Daley DO Active LISINOPRIL-HYDROCHLOROTHIAZIDE 10-12.5 MG ORAL TABLET 1 tab by mouth daily LISINOPRIL-HYDROCHLOROTHIAZIDE 96284882507 Active Piotr Daley DO Active LISINOPRIL 10 MG ORAL TABLET 1/2-1 tab po every other day LISINOPRIL 32919267986 No Longer Active Piotr Daley DO Active VENTOLIN HFA 108 (90 Base) MCG/ACT INHALATION AEROSOL SOLUTION 2 puffs four times a day PRN cough ALBUTEROL SULFATE 13414029521 No Longer Active Piotr Daley DO Active NYSTATIN-TRIAMCINOLONE 498795-2.1 UNIT/GM-% EXTERNAL CREAM Apply to area BID NYSTATIN-TRIAMCINOLONE 42985780714 No Longer Active Alena Chavira COLLAR FELLER Active PHISOHEX 3 % LIQD Use Directed HEXACHLOROPHENE 84889835942 No Longer Active Sandra [place] Active AZITHROMYCIN 250 MG ORAL TABLET 2 po qd x 1 day, then 1 po qd x 4 days 10/21 AZITHROMYCIN 11505239941 No Longer Active Katrina Rinaldi MD PhD Active AZITHROMYCIN 250 MG ORAL TABLET 2 po qd x 1 day, then 1 po qd x 4 days 10/16 AZITHROMYCIN 55990178269 No Longer Active Piotr Daley DO Active AZITHROMYCIN 500 MG INTRAVENOUS SOLUTION RECONSTITUTED 1 po q day AZITHROMYCIN 73269233813 No Longer Active Piotr Daley DO Active NYSTATIN-TRIAMCINOLONE 156775-8.1 UNIT/GM-% EXTERNAL CREAM apply bid NYSTATIN-TRIAMCINOLONE 00952341845 No Longer Active Piotr Daley DO Active IBUPROFEN 800 MG ORAL TABLET 1 po q 8 hours prn pain sparinly IBUPROFEN 47812897214 No Longer Active Piotr Daley DO Active VITAMIN D3 5000 UNIT ORAL CAPSULE 1 po daily CHOLECALCIFEROL 44196506566 Active Piotr Daley DO Active IBUPROFEN 800 MG ORAL TABLET 1 po q 8 hours prn pain sparinly IBUPROFEN 800 MG ORAL TABLET 418582 IBUPROFEN Inactive NYSTATIN-TRIAMCINOLONE 939979-9.1 UNIT/GM-% EXTERNAL CREAM apply bid NYSTATIN-TRIAMCINOLONE 822772-0.1 UNIT/GM-% EXTERNAL CREAM 6560763 NYSTATIN-TRIAMCINOLONE Inactive AZITHROMYCIN 500 MG INTRAVENOUS SOLUTION RECONSTITUTED 1 po q day AZITHROMYCIN 500 MG INTRAVENOUS SOLUTION RECONSTITUTED 56808479812 AZITHROMYCIN Inactive VENTOLIN HFA 108 (90 Base) MCG/ACT INHALATION AEROSOL SOLUTION 2 puffs four times a day PRN cough VENTOLIN HFA 108 (90 Base) MCG/ ACT INHALATION AEROSOL SOLUTION ALBUTEROL SULFATE Inactive LISINOPRIL 10 MG ORAL TABLET 1/2-1 tab po every other day LISINOPRIL 10 MG ORAL TABLET 373023 LISINOPRIL Inactive TUSSIONEX PENNKINETIC ER 10-8 MG/5ML ORAL SUSPENSION EXTENDED RELEASE 5ml po q12hr PRN Cough TUSSIONEX PENNKINETIC ER 10-8 MG/5ML ORAL SUSPENSION EXTENDED RELEASE HYDROCOD POLST-CHLORPHEN POLST Inactive PROMETHAZINE HCL 25 MG ORAL TABLET 1 four times a day as needed for nausea/ vomiting PROMETHAZINE HCL 25 MG ORAL TABLET 505504 PROMETHAZINE HCL Inactive PREDNISONE 20 MG ORAL TABLET 1 tablet twice daily for 2 days, then 1 tablet once daily for 2 days PREDNISONE 20 MG ORAL TABLET 712902 PREDNISONE Inactive WARFARIN SODIUM 4 MG ORAL TABLET 1 tab every evening WARFARIN SODIUM 4 MG ORAL TABLET 416417 WARFARIN SODIUM Inactive LOMOTIL 2.5-0.025 MG ORAL TABLET 1 to 2 four times a day as needed for diarrhea LOMOTIL 2.5-0.025 MG ORAL TABLET 6591714 DIPHENOXYLATE-ATROPINE Inactive IBUPROFEN 800 MG ORAL TABLET 1 tab every 8 hours as needed 07/12 IBUPROFEN 800 MG ORAL TABLET 508477 IBUPROFEN Inactive PREDNISONE 20 MG ORAL TABLET 2 tablets today, then 1 tablet days 2 through 4 PREDNISONE 20 MG ORAL TABLET 666606 PREDNISONE Inactive GABAPENTIN 300 MG ORAL CAPSULE 1 po q hs for nerve pain GABAPENTIN 300 MG ORAL CAPSULE 842084 GABAPENTIN Inactive TRAMADOL HCL 50 MG ORAL TABLET 1 po tid with ES Tylenol TRAMADOL HCL 50 MG ORAL TABLET 925945 TRAMADOL HCL Inactive PROAIR HFA 108 (90 BASE) MCG/ACT INHALATION AEROSOL SOLUTION 1-2 puffs four times a day as needed PROAIR HFA 108 (90 BASE) MCG/ACT INHALATION AEROSOL SOLUTION ALBUTEROL SULFATE Inactive PREDNISONE 20 MG ORAL TABLET two tabs by mouth today, then one tab by mouth days two and three PREDNISONE 20 MG ORAL TABLET 251246 PREDNISONE Inactive TESSALON PERLES 100 MG ORAL CAPSULE 1-2 tablet by mouth 3 times daily 04/16 TESSALON PERLES 100 MG ORAL CAPSULE 209587 BENZONATATE Inactive PREDNISONE 10 MG ORAL TABLET 1 tablet by mouth daily PREDNISONE 10 MG ORAL TABLET 524832 PREDNISONE Inactive AZITHROMYCIN 250 MG ORAL TABLET 2 po qd x 1 day, then 1 po qd x 4 days 10/16 AZITHROMYCIN 250 MG ORAL TABLET 480445 AZITHROMYCIN Inactive AZITHROMYCIN 250 MG ORAL TABLET 2 po qd x 1 day, then 1 po qd x 4 days 10/21 AZITHROMYCIN 250 MG ORAL TABLET 128962 AZITHROMYCIN Inactive NYSTATIN-TRIAMCINOLONE 558683-8.1 UNIT/GM-% EXTERNAL CREAM Apply to area BID NYSTATIN-TRIAMCINOLONE 480322-6.1 UNIT/GM-% EXTERNAL CREAM 0652495 NYSTATIN-TRIAMCINOLONE Inactive AZITHROMYCIN 250 MG ORAL TABLET 2 po qd x 1 day, then 1 po qd x 4 days 05/07 AZITHROMYCIN 250 MG ORAL TABLET 346074 AZITHROMYCIN Inactive AZITHROMYCIN 250 MG ORAL TABLET 2 po qd x 1 day, then 1 po qd x 4 days 10/13 AZITHROMYCIN 250 MG ORAL TABLET 994209 AZITHROMYCIN Inactive AZITHROMYCIN 250 MG ORAL TABLET 2 po qd x 1 day, then 1 po qd x 4 days 07/12 AZITHROMYCIN 250 MG ORAL TABLET 690732 AZITHROMYCIN Inactive PREDNISONE 20 MG ORAL TABLET 2 tabs daily for 3 days, 1 tab daily for 3 days, 1/2 tab daily for 2 days PREDNISONE 20 MG ORAL TABLET 766104 PREDNISONE Inactive DOXYCYCLINE HYCLATE 100 MG ORAL CAPSULE 1 cap by mouth BID x10 days DOXYCYCLINE HYCLATE 100 MG ORAL CAPSULE 5853139 DOXYCYCLINE HYCLATE Inactive ZITHROMAX 250 MG ORAL TABLET Take two (2 ) tablets day one, then one (1) tablet a day for four (4) more days ZITHROMAX 250 MG ORAL TABLET 987981 AZITHROMYCIN Inactive Advance Directives Directive Description Start [...] Name Value Unit Range Description Lab Report: Prothrombin Time Hemochron - Coagulation prothrombin time (patient) 33.0 SECS s 18.9-24.9 Encounters Code Encounter Date Provider Facility CPT-69664 Level 3 Est. Patient 15:59:25 CONTINUITY TESTER Piotr Daley [facility] CPT-74455 Level 3 Est. Patient 12:33:59 CONTINUITY TESTER Piotr Daley [facility] CPT-58461 Level 3 Est. Patient 15:56:17 CONTINUITY TESTER Piotr Katie Edi [facility] CPT-17312 Level 3 Est. Patient 10:34:54 CONTINUITY TESTER Piotr Daley [facility] CPT-51137 Level 3 Est. Patient 17:10:19 CDT Nella Harris APRN [facility] CPT-31277 Level 3 Est. Patient 10:48:17 CONTINUITY TESTER Matthew Rangel MD [facility] CPT-41911 Level 4 Est. Patient 17:15:07 CONTINUITY TESTER Piotr Wilson [facility] CPT-09189 Level 3 Est. Patient 12:46:13 CONTINUITY TESTER Piotr Daley [facility] CPT-82972 Level 3 Est. Patient 15:14:31 CONTINUITY TESTER Piotr Daley [facility] CPT-83050 Level 3 Est. Patient 09:20:13 CONTINUITY TESTER Piotr Daley [facility] CPT-66703 Level 3 Est. Patient 09:49:40 CDT Piotr Daley [facility] CPT-33237 Level 3 Est. Patient 16:28:11 CDT Piotr Daley [facility] CPT-28535 Level 3 Est. Patient 12:41:58 CONTINUITY TESTER Piotr Daley [facility] CPT-71539 Level 3 Est. Patient 09:21:24 CDT Piotr Wilson [facility] CPT-24390 Level 3 Est. Patient 09:21:11 CDT Piotr Wilson [facility] CPT-15037 Level 3 Est. Patient 11:16:29 CONTINUITY TESTER Piotr Daley [facility] CPT-82890 Level 3 Est. Patient 18:40:19 CONTINUITY TESTER Piotr Daley [facility] CPT-12546 Level 3 Est. Patient 19:30:50 CDT Piotr Daley [facility] CPT-37518 Level 3 Est. Patient 22:06:44 CDT Katrina Rinaldi MD [facility] CPT-29680 Level 3 Est. Patient 14:20:00 CDT Piotr Daley [facility] CPT-54258 Level 3 Est. Patient 14:15:22 CONTINUITY TESTER Piotr Daley [facility] CPT-89189 Level 3 Est. Patient 20:19:57 CONTINUITY TESTER Piotr Daley [facility] CPT-33221 Level 3 Est. Patient 16:44:32 CDT Piotr Daley [facility] CPT-97023 Level 3 Est. Patient 08:48:46 CONTINUITY TESTER Piotr Daley [facility] CPT-27163 Level 3 Est. Patient 21:01:21 CDT Piotr Daley [facility] Procedures Code Procedure Name Date Entry Date Standard Description CPT-52871 Sacroiliac jt < 3V - XRAY USE ONLY 16:45:19 CONTINUITY TESTER 05/09 CPT-08449 LS spine comp w obliques - XRAY USE ONLY 14:52:26 CONTINUITY TESTER CPT-17233 Chest, 2 views 12:55:58 CONTINUITY TESTER CPT-G0439 [facility] Annual Wellness Exam 10:34:52 CONTINUITY TESTER CPT-18188 BMP - LAB USE ONLY 17:19:11 CONTINUITY TESTER CPT-46318 PT/INR - LAB USE ONLY 17:19:10 CONTINUITY TESTER CPT-83492 Venipuncture Draw Fee 17:19:10 CONTINUITY TESTER CPT-68799 PT/INR - LAB USE ONLY 08:12:25 CONTINUITY TESTER CPT-77193 Venipuncture Draw Fee 08:12:24 CONTINUITY TESTER CPT-38611 Venipuncture Draw Fee 11:31:07 CONTINUITY TESTER CPT-31708 TPSA - LAB USE ONLY 11:31:07 CONTINUITY TESTER CPT-60107 PT/INR - LAB USE ONLY 11:31:07 CONTINUITY TESTER CPT-G0439 Subsequent Annual Wellness Exam 09:59:29 CONTINUITY TESTER CPT-46065 Creatinine - LAB USE ONLY 14:37:55 CONTINUITY TESTER CPT-43712 PT/INR - LAB USE ONLY 14:37:55 CONTINUITY TESTER CPT-10510 Venipuncture Draw Fee 14:37:55 CONTINUITY TESTER CPT-46087 LS spine comp w obliques - XRAY USE ONLY 12:59:25 CONTINUITY TESTER CPT-05429 PT/INR - LAB USE ONLY 13:49:20 CDT CPT-07100 Venipuncture Draw Fee 13:49:19 CDT CPT-83984 PT/INR - LAB USE ONLY 15:48:49 CDT CPT-46785 Venipuncture Draw Fee 15:48:49 CDT CPT-26137 Venipuncture Draw Fee 11:31:59 CDT CPT-79524 PT/INR - LAB USE ONLY 11:31:59 CDT CPT-89370 Venipuncture Draw Fee 13:29:15 CDT CPT-13007 Thoracolumbar AP/Lat 15:19:19 CONTINUITY TESTER CPT-G0438 Initial Annual Wellness Exam 12:18:54 CONTINUITY TESTER CPT-04934 Knee 3V 09:57:38 CDT CPT-OV Office Visit 15:45:01 CONTINUITY TESTER CPT-65929 Abd compl w upright 17:10:25 CDT
--- OUTSIDE RECORDS SUMMARY | 2018-07-18 07:46 | XMS REPORT | Clinical Summary ---
Author Author Admin, E Organization [email or web address] Address Unknown Phone Unavailable Allergies, Adverse Reactions, [...] anticoagulants Seborrheic keratosis 702.19 Active Piotr Wilson Eid DO Other seborrheic keratosis Bronchitis-Acute 466.0 Inactive Piotr Katie Daley DO Acute bronchitis Leg pain, right 729.5 Active Piotr Katie Edi DO Pain in limb Right leg pain 729.5 Active Piotr Katie Daley DO Pain in limb Bronchitis-Acute 466.0 Active Ipotr Katie Edi DO Acute bronchitis Knee pain, left 719.46 Active Piotr Katie Daley DO Pain in joint involving lower leg Health maintenance exam V70.0 Active Adriane Rojo LPN Routine general medical examination at a health care facility Actinic keratoses 702.0 Active Piotr Katie Edi DO Actinic keratosis Personal history of malignant neoplasm of prostate V10.46 Active Alina Meyers [employer] BI ADMINISTRATOR Personal history of malignant neoplasm of prostate Coronary artery disease 414.00 Active Alina Luigi [employer] BI ADMINISTRATOR Coronary atherosclerosis of unspecified type of vessel, [place] or graft Back pain, thoracic region, left [...] MG TABS 1 tablet daily WARFARIN SODIUM 07628127035 Active Emelyn Goode RPT,RMA Active TRAMADOL HCL 50 MG TABS 1 po tid with ES Tylenol TRAMADOL HCL 98483766714 Active Piotr Daley DO Active PREDNISONE 20 MG TAB 2 tablets today, then 1 tablet days 2 through 4 PREDNISONE 91319557181 No Longer Active Piotr Daley DO Active AZITHROMYCIN 250 MG TABS 2 po qd x 1 day, then 1 po qd x 4 days AZITHROMYCIN 18369312827 No Longer Active Piotr Daley DO Active IBUPROFEN 800 MG TABS 1 tab every 8 hours as needed IBUPROFEN 90091357727 No Longer Active Piotr Daley DO Active LOMOTIL 2.5-0.025 MG TAB 1 to 2 four times a day as needed for diarrhea 10/13 DIPHENOXYLATE-ATROPINE 26803336931 No Longer Active Piotr Daley DO Active WARFARIN SODIUM 4 MG TABS 1 tab every evening WARFARIN SODIUM 90568080002 No Longer Active Piotr Daley DO Active PREDNISONE 20 MG TAB 1 tablet twice daily for 2 days, then 1 tablet once daily for 2 days PREDNISONE 59947102769 No Longer Active Piotr Daley DO Active PROMETHAZINE HCL 25 MG TABS 1 four times a day as needed for nausea/vomiting PROMETHAZINE HCL 27567666207 No Longer Active Piotr Daley DO Active TUSSIONEX PENNKINETIC ER 10-8 MG/5ML LQCR 5ml po q12hr PRN Cough HYDROCOD POLST-CHLORPHEN POLST 02466759764 No Longer Active Piotr W Edi DO Active AZITHROMYCIN 250 MG TABS 2 po qd x 1 day, then 1 po qd x 4 days AZITHROMYCIN 05209678309 No Longer Active Piotr Daley DO Active AZITHROMYCIN 250 MG TABS 2 po qd x 1 day, then 1 po qd x 4 days AZITHROMYCIN 39653260028 No Longer Active Piotr Daley DO Active LISINOPRIL-HYDROCHLOROTHIAZIDE 10-12.5 MG TABS 1 tab by mouth daily LISINOPRIL-HYDROCHLOROTHIAZIDE 92944136239 Active Hilary Ma MA Active LISINOPRIL 10 MG TABS 1/2-1 tab po every other day LISINOPRIL 97706058187 No Longer Active Piotr Daley DO Active VENTOLIN HFA 108 (90 BASE) MCG/ACT AERS 2 puffs four times a day PRN cough ALBUTEROL SULFATE 99742641444 No Longer Active Piotr Daley DO Active NYSTATIN-TRIAMCINOLONE 022760-4.1 UNIT/GM-% CREA Apply to area BID NYSTATIN-TRIAMCINOLONE 40737862806 No Longer Active Alena Oswaldum PROPERTY MANAGEMENT ASSISTANT Active PHISOHEX 3 % LIQD Use Directed HEXACHLOROPHENE 91459153984 No Longer Active Sandra [place] Active AZITHROMYCIN 250 MG TABS 2 po qd x 1 day, then 1 po qd x 4 days AZITHROMYCIN 89961627544 No Longer Active Katrina Rinaldi MD PhD Active AZITHROMYCIN 250 MG TABS 2 po qd x 1 day, then 1 po qd x 4 days AZITHROMYCIN 70372275789 No Longer Active Piotr Daley DO Active AZITHROMYCIN 500 MG SOLR 1 po q day AZITHROMYCIN 93499193981 No Longer Active Piotr Daley DO Active NYSTATIN-TRIAMCINOLONE 491143-3.1 UNIT/GM-% CREA apply bid 08/19 NYSTATIN-TRIAMCINOLONE 48843092813 No Longer Active Piotr Daley DO Active IBUPROFEN 800 MG TABS 1 po q 8 hours prn pain sparinly IBUPROFEN 45029946071 No Longer Active Piotr Daley DO Active VITAMIN D3 5000 UNIT CAPS 1 po daily CHOLECALCIFEROL 84530672665 Active Piotr Daley DO Active IBUPROFEN 800 MG TABS 1 po q 8 hours prn pain sparinly IBUPROFEN 800 MG TABS 299450 IBUPROFEN Inactive NYSTATIN-TRIAMCINOLONE 034446-2.1 UNIT/GM-% CREA apply bid 08/19 NYSTATIN-TRIAMCINOLONE 126200-4.1 UNIT/GM-% CREA 6020979 NYSTATIN- TRIAMCINOLONE Inactive AZITHROMYCIN 500 MG SOLR 1 po q day AZITHROMYCIN 500 MG SOLR 62808834969 AZITHROMYCIN Inactive VENTOLIN HFA 108 (90 BASE) MCG/ACT AERS 2 puffs four times a day PRN cough VENTOLIN HFA 108 (90 BASE) MCG/ACT AERS ALBUTEROL SULFATE Inactive LISINOPRIL 10 MG TABS 1/2-1 tab po every other day LISINOPRIL 10 MG TABS 263345 LISINOPRIL Inactive TUSSIONEX PENNKINETIC ER 10-8 MG/5ML LQCR 5ml po q12hr PRN Cough TUSSIONEX PENNKINETIC ER 10-8 MG/5ML LQCR HYDROCOD POLST- CHLORPHEN POLST Inactive PROMETHAZINE HCL 25 MG TABS 1 four times a day as needed for nausea/vomiting PROMETHAZINE HCL 25 MG TABS 899507 PROMETHAZINE HCL Inactive PREDNISONE 20 MG TAB 1 tablet twice daily for 2 days, then 1 tablet once daily for 2 days PREDNISONE 20 MG TAB 632471 PREDNISONE Inactive WARFARIN SODIUM 4 MG TABS 1 tab every evening WARFARIN SODIUM 4 MG TABS 399134 WARFARIN SODIUM Inactive LOMOTIL 2.5-0.025 MG TAB 1 to 2 four times a day as needed for diarrhea 10/13 LOMOTIL 2.5-0.025 MG TAB 1452887 DIPHENOXYLATE-ATROPINE Inactive IBUPROFEN 800 MG TABS 1 tab every 8 hours as needed IBUPROFEN 800 MG TABS 832252 IBUPROFEN Inactive PREDNISONE 20 MG TAB 2 tablets today, then 1 tablet days 2 through 4 PREDNISONE 20 MG TAB 081785 PREDNISONE Inactive AZITHROMYCIN 250 MG TABS 2 po qd x 1 day, then 1 po qd x 4 days AZITHROMYCIN 250 MG TABS 4064921 AZITHROMYCIN Inactive AZITHROMYCIN 250 MG TABS 2 po qd x 1 day, then 1 po qd x 4 days AZITHROMYCIN 250 MG TABS 0345254 AZITHROMYCIN Inactive NYSTATIN-TRIAMCINOLONE 385205-6.1 UNIT/GM-% CREA Apply to area BID NYSTATIN-TRIAMCINOLONE 832379-0.1 UNIT/GM-% CREA 1203871 NYSTATIN-TRIAMCINOLONE Inactive AZITHROMYCIN 250 MG TABS 2 po qd x 1 day, then 1 po qd x 4 days AZITHROMYCIN 250 MG TABS 2674443 AZITHROMYCIN Inactive AZITHROMYCIN 250 MG TABS 2 po qd x 1 day, then 1 po qd x 4 days AZITHROMYCIN 250 MG TABS 8521607 AZITHROMYCIN Inactive AZITHROMYCIN 250 MG TABS 2 po qd x 1 day, then 1 po qd x 4 days AZITHROMYCIN 250 MG TABS 6310852 AZITHROMYCIN Inactive Advance Directives Directive Description Start [...] Panel - Chemistry sodium, serum 141 mmol/L 704-528 3347/06/28 carbon dioxide, venous blood 31.0 mmol/L 21.0-32.0 [...] ratio (INR) 1.7 1.0-3.5 prothrombin time (patient) 19.9 SECS s [...] 5.0-8.5 Encounters Code Encounter Date Provider Facility CPT-21420 Level 3 Est. Patient 15:14:31 STITCHER SPECIAL MACHINE Piotr Daley DO [facility] CPT-03973 Level 3 Est. Patient 09:20:13 STITCHER SPECIAL MACHINE Piotr Daley [facility] CPT-48326 Level 3 Est. Patient 09:49:40 CDT Piotr Daley [facility] CPT-96105 Level 3 Est. Patient 16:28:11 CDT Piotr Daley [facility] CPT-83651 Level 3 Est. Patient 12:41:58 STITCHER SPECIAL MACHINE Piotr Daley [facility] CPT-34197 Level 3 Est. Patient 09:21:24 CDT Piotr Daley [facility] CPT-24757 Level 3 Est. Patient 09:21:11 CDT Piotr Daley [facility] CPT-91646 Level 3 Est. Patient 11:16:29 STITCHER SPECIAL MACHINE Piotr Daley [facility] CPT-76975 Level 3 Est. Patient 18:40:19 STITCHER SPECIAL MACHINE Piotr Daley [facility] CPT-84412 Level 3 Est. Patient 19:30:50 CDT Piotr Daley [facility] CPT-48912 Level 3 Est. Patient 22:06:44 CDT Katrina Rinaldi MD [facility] CPT-17132 Level 3 Est. Patient 14:20:00 CDT Piotr Daley [facility] CPT-00543 Level 3 Est. Patient 14:15:22 STITCHER SPECIAL MACHINE Piotr Daley [facility] CPT-74656 Level 3 Est. Patient 20:19:57 STITCHER SPECIAL MACHINE Piotr Daley [facility] CPT-42087 Level 3 Est. Patient 16:44:32 CDT Piotr Daley [facility] CPT-78453 Level 3 Est. Patient 08:48:46 STITCHER SPECIAL MACHINE Piotr Daley [facility] CPT-77696 Level 3 Est. Patient 21:01:21 CDT Poitr Daley [facility] Procedures Code Procedure Name Date Entry Date Standard Description CPT-92526 Venipuncture Draw Fee 13:29:15 CDT CPT-44796 Thoracolumbar AP/Lat 15:19:19 STITCHER SPECIAL MACHINE CPT-G0438 Initial Annual Wellness Exam 12:18:54 STITCHER SPECIAL MACHINE CPT-07280 Knee 3V 09:57:38 CDT CPT-OV Office Visit 15:45:01 STITCHER SPECIAL MACHINE CPT-44620 Abd compl w upright 17:10:25 CDT
--- OUTSIDE RECORDS SUMMARY | 2018-07-18 07:47 | XMS REPORT | Clinical Summary ---
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 Personal history of malignant neoplasm of prostate Coronary artery disease 414.00 Active Alina Meyers APRN Coronary atherosclerosis of unspecified type of vessel, [place] or graft Back pain, thoracic region, left [...] PhD BRONCHITIS-ACUTE ICD-466.0 Inactive Piotr Katie Edi LEON SCREENING, COLON CANCER ICD-V76.51 Inactive Katrina Rinaldi MD PhD BRONCHITIS-ACUTE ICD-466.0 Inactive Piotr Daley DO Bronchitis-Acute ICD-466.0 Inactive Piotr Daley DO Back pain, thoracic region, left ICD-724.1 Inactive Piotr Wilson Edi DO Medication List Medication Instructions Start Date Stop Date Generic Name NDC Status Provider Patient Instruction GABAPENTIN 300 MG CAPS 1 po q hs for nerve pain GABAPENTIN 79762003023 Active Piotr Daley DO Active WARFARIN SODIUM 5 MG TABS 1 tablet daily WARFARIN SODIUM 03336039107 Active Simi Meyers Active TRAMADOL HCL 50 MG TABS 1 po tid with ES Tylenol TRAMADOL HCL 85616295532 Active Piotr Dlaey DO Active PREDNISONE 20 MG TAB 2 tablets today, then 1 tablet days 2 through 4 PREDNISONE 21621464955 No Longer Active Piotr Daley DO Active AZITHROMYCIN 250 MG TABS 2 po qd x 1 day, then 1 po qd x 4 days AZITHROMYCIN 09256400749 No Longer Active Piotr Daley DO Active IBUPROFEN 800 MG TABS 1 tab every 8 hours as needed IBUPROFEN 60318103836 No Longer Active Piotr Daley DO Active LOMOTIL 2.5-0.025 MG TAB 1 to 2 four times a day as needed for diarrhea 10/13 DIPHENOXYLATE-ATROPINE 46263081590 No Longer Active Piotr Daley DO Active WARFARIN SODIUM 4 MG TABS 1 tab every evening WARFARIN SODIUM 35719396037 No Longer Active Piotr Daley DO Active PREDNISONE 20 MG TAB 1 tablet twice daily for 2 days, then 1 tablet once daily for 2 days PREDNISONE 49922819173 No Longer Active Piotr Daley DO Active PROMETHAZINE HCL 25 MG TABS 1 four times a day as needed for nausea/vomiting PROMETHAZINE HCL 91407974713 No Longer Active Piotr Daley DO Active TUSSIONEX PENNKINETIC ER 10-8 MG/5ML LQCR 5ml po q12hr PRN Cough HYDROCOD POLST-CHLORPHEN POLST 69966542284 No Longer Active Piotr Daley DO Active AZITHROMYCIN 250 MG TABS 2 po qd x 1 day, then 1 po qd x 4 days AZITHROMYCIN 00054243043 No Longer Active Piotr Daley DO Active AZITHROMYCIN 250 MG TABS 2 po qd x 1 day, then 1 po qd x 4 days AZITHROMYCIN 56448006788 No Longer Active Piotr Daley DO Active LISINOPRIL-HYDROCHLOROTHIAZIDE 10-12.5 MG TABS 1 tab by mouth daily LISINOPRIL-HYDROCHLOROTHIAZIDE 26595298670 Active Simi Meyers Active LISINOPRIL 10 MG TABS 1/2-1 tab po every other day LISINOPRIL 82273191145 No Longer Active Piotr Daley DO Active VENTOLIN HFA 108 (90 BASE) MCG/ACT AERS 2 puffs four times a day PRN cough ALBUTEROL SULFATE 89054532820 No Longer Active Piotr Daley DO Active NYSTATIN-TRIAMCINOLONE 680987-0.1 UNIT/GM-% CREA Apply to area BID NYSTATIN-TRIAMCINOLONE 26647505543 No Longer Active Alena 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 PHISOHEX 3 % LIQD Use Directed HEXACHLOROPHENE 12456221057 No Longer Active Sandra Portal Active AZITHROMYCIN 250 MG TABS 2 po qd x 1 day, then 1 po qd x 4 days AZITHROMYCIN 60017989496 No Longer Active Katrina Rinaldi MD PhD Active AZITHROMYCIN 250 MG TABS 2 po qd x 1 day, then 1 po qd x 4 days AZITHROMYCIN 02177293993 No Longer Active Piotr Daley DO Active AZITHROMYCIN 500 MG SOLR 1 po q day AZITHROMYCIN 09185969914 No Longer Active Piotr Daley DO Active NYSTATIN-TRIAMCINOLONE 999296-0.1 UNIT/GM-% CREA apply bid 08/19 NYSTATIN-TRIAMCINOLONE 11194543864 No Longer Active Piotr Daley DO Active IBUPROFEN 800 MG TABS 1 po q 8 hours prn pain sparinly IBUPROFEN 72426676821 No Longer Active Piotr Daley DO Active VITAMIN D3 5000 UNIT CAPS 1 po daily CHOLECALCIFEROL 46191588656 Active Piotr Daley DO Active IBUPROFEN 800 MG TABS 1 po q 8 hours prn pain sparinly IBUPROFEN 800 MG TABS 212438 IBUPROFEN Inactive NYSTATIN-TRIAMCINOLONE 044611-2.1 UNIT/GM-% CREA apply bid 08/19 NYSTATIN-TRIAMCINOLONE 322854-6.1 UNIT/GM-% CREA 2726791 NYSTATIN- TRIAMCINOLONE Inactive AZITHROMYCIN 500 MG SOLR 1 po q day AZITHROMYCIN 500 MG SOLR 97268935030 AZITHROMYCIN Inactive VENTOLIN HFA 108 (90 BASE) MCG/ACT AERS 2 puffs four times a day PRN cough VENTOLIN HFA 108 (90 BASE) MCG/ACT AERS ALBUTEROL SULFATE Inactive LISINOPRIL 10 MG TABS 1/2-1 tab po every other day LISINOPRIL 10 MG TABS 580658 LISINOPRIL Inactive TUSSIONEX PENNKINETIC ER 10-8 MG/5ML LQCR 5ml po q12hr PRN Cough TUSSIONEX PENNKINETIC ER 10-8 MG/5ML LQCR HYDROCOD POLST- CHLORPHEN POLST Inactive PROMETHAZINE HCL 25 MG TABS 1 four times a day as needed for nausea/vomiting PROMETHAZINE HCL 25 MG TABS 216090 PROMETHAZINE HCL Inactive PREDNISONE 20 MG TAB 1 tablet twice daily for 2 days, then 1 tablet once daily for 2 days PREDNISONE 20 MG TAB 880403 PREDNISONE Inactive WARFARIN SODIUM 4 MG TABS 1 tab every evening WARFARIN SODIUM 4 MG TABS 944287 WARFARIN SODIUM Inactive LOMOTIL 2.5-0.025 MG TAB 1 to 2 four times a day as needed for diarrhea 10/13 LOMOTIL 2.5-0.025 MG TAB 7683210 DIPHENOXYLATE-ATROPINE Inactive IBUPROFEN 800 MG TABS 1 tab every 8 hours as needed IBUPROFEN 800 MG TABS 929780 IBUPROFEN Inactive PREDNISONE 20 MG TAB 2 tablets today, then 1 tablet days 2 through 4 PREDNISONE 20 MG TAB 207176 PREDNISONE Inactive AZITHROMYCIN 250 MG TABS 2 po qd x 1 day, then 1 po qd x 4 days AZITHROMYCIN 250 MG TABS 6931829 AZITHROMYCIN Inactive AZITHROMYCIN 250 MG TABS 2 po qd x 1 day, then 1 po qd x 4 days AZITHROMYCIN 250 MG TABS 1632242 AZITHROMYCIN Inactive NYSTATIN-TRIAMCINOLONE 766484-4.1 UNIT/GM-% CREA Apply to area BID NYSTATIN-TRIAMCINOLONE 689585-9.1 UNIT/GM-% CREA 9174912 NYSTATIN-TRIAMCINOLONE Inactive AZITHROMYCIN 250 MG TABS 2 po qd x 1 day, then 1 po qd x 4 days AZITHROMYCIN 250 MG TABS 3600121 AZITHROMYCIN Inactive AZITHROMYCIN 250 MG TABS 2 po qd x 1 day, then 1 po qd x 4 days AZITHROMYCIN 250 MG TABS 1579489 AZITHROMYCIN Inactive AZITHROMYCIN 250 MG TABS 2 po qd x 1 day, then 1 po qd x 4 days AZITHROMYCIN 250 MG TABS 6681664 AZITHROMYCIN Inactive Advance Directives Directive Description Start [...] Panel - Chemistry sodium, serum 141 mmol/L 088-440 8121/01/24 potassium, serum 4.3 mmol/L 3.5-5.2 chloride, serum 103 mmol/L 98-107 carbon dioxide, venous blood 30.7 mmol/L 21.0-32.0 blood glucose 90 mg/dL 65-110 calcium, serum 8.5 mg/dL 8.5-10.1 urea nitrogen, blood 16 mg/dL 7-18 creatinine, serum 1.09 mg/dL 0.55-1.30 Lab Report: Comp. Metabolic Panel - Chemistry sodium, serum 141 mmol/L 692-777 7765/06/28 carbon dioxide, venous blood 31.0 mmol/L 21.0-32.0 [...] (INR) 4.2 1.0-3.5 international normalized ratio (INR) 1.7 1.0-3.5 prothrombin time (patient) 24.3 SECS s 11.1-13.4 international normalized ratio (INR) 3.3 1.0-3.5 prothrombin time (patient) 15.4 SECS s 11.1-13.4 international normalized ratio (INR) 2.3 1.0-3.5 prothrombin time (patient) 20.8 SECS s 11.1-13.4 international normalized ratio (INR) 2.5 1.0-3.5 prothrombin time (patient) 18.3 SECS s 11.1-13.4 prothrombin time (patient) 22.8 SECS s 11.1-13.4 prothrombin time (patient) 23.8 SECS s 11.1-13.4 international normalized ratio (INR) 3.2 1.0-3.5 international normalized ratio (INR) 3.0 1.0-3.5 prothrombin time (patient) 23.1 SECS s 11.1-13.4 international normalized ratio (INR) 3.0 1.0-3.5 international normalized ratio (INR) 2.2 1.0-3.5 prothrombin time (patient) 18.1 SECS s 11.1-13.4 prothrombin time (patient) 19.8 SECS s 11.1-13.4 international normalized ratio (INR) 2.3 1.0-3.5 Encounters Code Encounter Date Provider Facility CPT-95055 Level 4 Est. Patient 17:15:07 STEAM HAND Piotr Daley [facility] CPT-85728 Level 3 Est. Patient 12:46:13 STEAM HAND Piotr Daley [facility] CPT-29743 Level 3 Est. Patient 15:14:31 STEAM HAND Piotr Daley [facility] CPT-99751 Level 3 Est. Patient 09:20:13 STEAM HAND Piotr Daley [facility] CPT-41927 Level 3 Est. Patient 09:49:40 CDT Piotr Wilson [facility] CPT-22975 Level 3 Est. Patient 16:28:11 CDT Piotr Wilson [facility] CPT-42853 Level 3 Est. Patient 12:41:58 STEAM HAND Piotr Daley [facility] CPT-01012 Level 3 Est. Patient 09:21:24 CDT Piotr Wilson [facility] CPT-62424 Level 3 Est. Patient 09:21:11 CDT Piotr Daley [facility] CPT-59116 Level 3 Est. Patient 11:16:29 STEAM HAND Piotr Daley [facility] CPT-28989 Level 3 Est. Patient 18:40:19 STEAM HAND Piotr Daley [facility] CPT-43572 Level 3 Est. Patient 19:30:50 CDT Piotr Daley [facility] CPT-68668 Level 3 Est. Patient 22:06:44 CDT Katrina Rinaldi MD [facility] CPT-14135 Level 3 Est. Patient 14:20:00 CDT Piotr Daley [facility] CPT-10301 Level 3 Est. Patient 14:15:22 STEAM HAND Piotr Daley [facility] CPT-93130 Level 3 Est. Patient 20:19:57 STEAM HAND Piotr Daley [facility] CPT-92874 Level 3 Est. Patient 16:44:32 CDT Piotr Daley [facility] CPT-31194 Level 3 Est. Patient 08:48:46 STEAM HAND Piotr Daley [facility] CPT-94052 Level 3 Est. Patient 21:01:21 CDT Piotr Daley [facility] Procedures Code Procedure Name Date Entry Date Standard Description CPT-52838 BMP - LAB USE ONLY 17:19:11 STEAM HAND CPT-31013 PT/INR - LAB USE ONLY 17:19:10 STEAM HAND CPT-63249 Venipuncture Draw Fee 17:19:10 STEAM HAND CPT-05478 PT/INR - LAB USE ONLY 08:12:25 STEAM HAND CPT-37083 Venipuncture Draw Fee 08:12:24 STEAM HAND CPT-98485 Venipuncture Draw Fee 11:31:07 STEAM HAND CPT-42112 TPSA - LAB USE ONLY 11:31:07 STEAM HAND CPT-20017 PT/INR - LAB USE ONLY 11:31:07 STEAM HAND CPT-G0439 Subsequent Annual Wellness Exam 09:59:29 STEAM HAND CPT-33678 Creatinine - LAB USE ONLY 14:37:55 STEAM HAND CPT-45442 PT/INR - LAB USE ONLY 14:37:55 STEAM HAND CPT-05460 Venipuncture Draw Fee 14:37:55 STEAM HAND CPT-71795 LS spine comp w obliques - XRAY USE ONLY 12:59:25 STEAM HAND CPT-20202 PT/INR - LAB USE ONLY 13:49:20 CDT CPT-01950 Venipuncture Draw Fee 13:49:19 CDT CPT-05850 PT/INR - LAB USE ONLY 15:48:49 CDT CPT-66380 Venipuncture Draw Fee 15:48:49 CDT CPT-19064 Venipuncture Draw Fee 11:31:59 CDT CPT-53938 PT/INR - LAB USE ONLY 11:31:59 CDT CPT-91293 Venipuncture Draw Fee 13:29:15 CDT CPT-41604 Thoracolumbar AP/Lat 15:19:19 STEAM HAND CPT-G0438 Initial Annual Wellness Exam 12:18:54 STEAM HAND CPT-91141 Knee 3V 09:57:38 CDT CPT-OV Office Visit 15:45:01 STEAM HAND CPT-50754 Abd compl w upright 17:10:25 CDT
--- OUTSIDE RECORDS SUMMARY | 2018-07-18 07:47 | XMS REPORT | Clinical Summary ---
Author Author Admin, E Organization [employer] Address Unknown Phone Unavailable Allergies, Adverse Reactions, [...] Coronary atherosclerosis of unspecified type of vessel, [place] or graft Back pain, thoracic region, left [...] po q hs for nerve pain GABAPENTIN 45715170964 Active Piotr Daley DO Active WARFARIN SODIUM 5 MG TABS 1 tablet daily WARFARIN SODIUM 73322494629 Active Simi Meyers Active TRAMADOL HCL 50 MG TABS 1 po tid with ES Tylenol TRAMADOL HCL 38804502326 Active Piotr Daley DO Active PREDNISONE 20 MG TAB 2 tablets today, then 1 tablet days 2 through 4 PREDNISONE 01446860180 No Longer Active Piotr Daley DO Active AZITHROMYCIN 250 MG TABS 2 po qd x 1 day, then 1 po qd x 4 days AZITHROMYCIN 68680159934 No Longer Active Piotr Daley DO Active IBUPROFEN 800 MG TABS 1 tab every 8 hours as needed IBUPROFEN 79233538701 No Longer Active Piotr Daley DO Active LOMOTIL 2.5-0.025 MG TAB 1 to 2 four times a day as needed for diarrhea 10/13 DIPHENOXYLATE-ATROPINE 20315273445 No Longer Active Piotr Daley DO Active WARFARIN SODIUM 4 MG TABS 1 tab every evening WARFARIN SODIUM 73641023561 No Longer Active Piotr Daley DO Active PREDNISONE 20 MG TAB 1 tablet twice daily for 2 days, then 1 tablet once daily for 2 days PREDNISONE 78195601456 No Longer Active Piotr Daley DO Active PROMETHAZINE HCL 25 MG TABS 1 four times a day as needed for nausea/vomiting PROMETHAZINE HCL 82833004567 No Longer Active Piotr Daley DO Active TUSSIONEX PENNKINETIC ER 10-8 MG/5ML LQCR 5ml po q12hr PRN Cough HYDROCOD POLST-CHLORPHEN POLST 02261093666 No Longer Active Piotr Daley DO Active AZITHROMYCIN 250 MG TABS 2 po qd x 1 day, then 1 po qd x 4 days AZITHROMYCIN 30018442835 No Longer Active Piotr Daley DO Active AZITHROMYCIN 250 MG TABS 2 po qd x 1 day, then 1 po qd x 4 days AZITHROMYCIN 19879344955 No Longer Active Piotr Daley DO Active LISINOPRIL-HYDROCHLOROTHIAZIDE 10-12.5 MG TABS 1 tab by mouth daily LISINOPRIL-HYDROCHLOROTHIAZIDE 76777565908 Active Hilary Ma MA Active LISINOPRIL 10 MG TABS 1/2-1 tab po every other day LISINOPRIL 88318879118 No Longer Active Piotr Daley DO Active VENTOLIN HFA 108 (90 BASE) MCG/ACT AERS 2 puffs four times a day PRN cough ALBUTEROL SULFATE 55815568227 No Longer Active Piotr Daley DO Active NYSTATIN-TRIAMCINOLONE 268127-5.1 UNIT/GM-% CREA Apply to area BID NYSTATIN-TRIAMCINOLONE 17662874482 No Longer Active Alena Chavira BEHAVIORAL THERAPIST Active PHISOHEX 3 % LIQD Use Directed HEXACHLOROPHENE 27326730559 No Longer Active Sandra [place] Active AZITHROMYCIN 250 MG TABS 2 po qd x 1 day, then 1 po qd x 4 days AZITHROMYCIN 19906792959 No Longer Active Katrina Rinaldi MD PhD Active AZITHROMYCIN 250 MG TABS 2 po qd x 1 day, then 1 po qd x 4 days AZITHROMYCIN 05012084890 No Longer Active Piotr Daley DO Active AZITHROMYCIN 500 MG SOLR 1 po q day AZITHROMYCIN 79099763410 No Longer Active Piotr Daley DO Active NYSTATIN-TRIAMCINOLONE 030841-1.1 UNIT/GM-% CREA apply bid 08/19 NYSTATIN-TRIAMCINOLONE 36881657440 No Longer Active Piotr Daley DO Active IBUPROFEN 800 MG TABS 1 po q 8 hours prn pain sparinly IBUPROFEN 63995863280 No Longer Active Piotr Daley DO Active VITAMIN D3 5000 UNIT CAPS 1 po daily CHOLECALCIFEROL 24329766780 Active Piotr Daley DO Active IBUPROFEN 800 MG TABS 1 po q 8 hours prn pain sparinly IBUPROFEN 800 MG TABS 421621 IBUPROFEN Inactive NYSTATIN-TRIAMCINOLONE 436623-7.1 UNIT/GM-% CREA apply bid 08/19 NYSTATIN-TRIAMCINOLONE 159039-9.1 UNIT/GM-% CREA 8079675 NYSTATIN- TRIAMCINOLONE Inactive AZITHROMYCIN 500 MG SOLR 1 po q day AZITHROMYCIN 500 MG SOLR 99596387950 AZITHROMYCIN Inactive VENTOLIN HFA 108 (90 BASE) MCG/ACT AERS 2 puffs four times a day PRN cough VENTOLIN HFA 108 (90 BASE) MCG/ACT AERS ALBUTEROL SULFATE Inactive LISINOPRIL 10 MG TABS 1/2-1 tab po every other day LISINOPRIL 10 MG TABS 394710 LISINOPRIL Inactive TUSSIONEX PENNKINETIC ER 10-8 MG/5ML LQCR 5ml po q12hr PRN Cough TUSSIONEX PENNKINETIC ER 10-8 MG/5ML LQCR HYDROCOD POLST- CHLORPHEN POLST Inactive PROMETHAZINE HCL 25 MG TABS 1 four times a day as needed for nausea/vomiting PROMETHAZINE HCL 25 MG TABS 813504 PROMETHAZINE HCL Inactive PREDNISONE 20 MG TAB 1 tablet twice daily for 2 days, then 1 tablet once daily for 2 days PREDNISONE 20 MG TAB 209796 PREDNISONE Inactive WARFARIN SODIUM 4 MG TABS 1 tab every evening WARFARIN SODIUM 4 MG TABS 133269 WARFARIN SODIUM Inactive LOMOTIL 2.5-0.025 MG TAB 1 to 2 four times a day as needed for diarrhea 10/13 LOMOTIL 2.5-0.025 MG TAB 7486456 DIPHENOXYLATE-ATROPINE Inactive IBUPROFEN 800 MG TABS 1 tab every 8 hours as needed IBUPROFEN 800 MG TABS 708221 IBUPROFEN Inactive PREDNISONE 20 MG TAB 2 tablets today, then 1 tablet days 2 through 4 PREDNISONE 20 MG TAB 377004 PREDNISONE Inactive AZITHROMYCIN 250 MG TABS 2 po qd x 1 day, then 1 po qd x 4 days AZITHROMYCIN 250 MG TABS 2880642 AZITHROMYCIN Inactive AZITHROMYCIN 250 MG TABS 2 po qd x 1 day, then 1 po qd x 4 days AZITHROMYCIN 250 MG TABS 9759349 AZITHROMYCIN Inactive NYSTATIN-TRIAMCINOLONE 329667-9.1 UNIT/GM-% CREA Apply to area BID NYSTATIN-TRIAMCINOLONE 083375-5.1 UNIT/GM-% CREA 6845952 NYSTATIN-TRIAMCINOLONE Inactive AZITHROMYCIN 250 MG TABS 2 po qd x 1 day, then 1 po qd x 4 days AZITHROMYCIN 250 MG TABS 2417636 AZITHROMYCIN Inactive AZITHROMYCIN 250 MG TABS 2 po qd x 1 day, then 1 po qd x 4 days AZITHROMYCIN 250 MG TABS 1314794 AZITHROMYCIN Inactive AZITHROMYCIN 250 MG TABS 2 po qd x 1 day, then 1 po qd x 4 days AZITHROMYCIN 250 MG TABS 9903624 AZITHROMYCIN Inactive Advance Directives Directive Description Start [...] E&M - 3141-9 222 [lb_av] Weight Measured Diagnostic Results Date Name [...] Panel - Chemistry sodium, serum 141 mmol/L 968-111 3215/06/28 carbon dioxide, venous blood 31.0 mmol/L 21.0-32.0 [...] Negative Encounters Code Encounter Date Provider Facility CPT-13895 Level 4 Est. Patient 17:15:07 STERILE PRODUCTS PROCESSOR Piotr Daley [facility] CPT-02894 Level 3 Est. Patient 12:46:13 STERILE PRODUCTS PROCESSOR Piotr Daley [facility] CPT-10373 Level 3 Est. Patient 15:14:31 STERILE PRODUCTS PROCESSOR Poitr Daley [facility] CPT-36359 Level 3 Est. Patient 09:20:13 STERILE PRODUCTS PROCESSOR Piotr Daley [facility] CPT-90635 Level 3 Est. Patient 09:49:40 CDT Piotr aDley [facility] CPT-38184 Level 3 Est. Patient 16:28:[address] [facility] CPT-05229 Level 3 Est. Patient 12:41:58 STERILE PRODUCTS PROCESSOR Piotr Daley [facility] CPT-25103 Level 3 Est. Patient 09:21:24 CDT Piotr Daley [facility] CPT-23902 Level 3 Est. Patient 09:21:11 CDT Piotr Daley [facility] CPT-92630 Level 3 Est. Patient 11:16:29 STERILE PRODUCTS PROCESSOR Piotr Daley [facility] CPT-61737 Level 3 Est. Patient 18:40:19 STERILE PRODUCTS PROCESSOR Piotr Daley [facility] CPT-50754 Level 3 Est. Patient 19:30:[address] [facility] CPT-58619 Level 3 Est. Patient 22:06:44 CDT Katrina Rinaldi MD PhD [facility] CPT-15053 Level 3 Est. Patient 14:20:[address] [facility] CPT-90108 Level 3 Est. Patient 14:15:22 STERILE PRODUCTS PROCESSOR Piotr Daley [facility] CPT-50290 Level 3 Est. Patient 20:19:57 STERILE PRODUCTS PROCESSOR Piotr Daley [facility] CPT-17271 Level 3 Est. Patient 16:44:[address] [facility] CPT-74940 Level 3 Est. Patient 08:48:46 STERILE PRODUCTS PROCESSOR Piotr Daley [facility] CPT-69746 Level 3 Est. Patient 21:01:[address] [facility] Procedures Code Procedure Name Date Entry Date Standard Description CPT-50301 Venipuncture Draw Fee 11:31:07 STERILE PRODUCTS PROCESSOR CPT-17184 TPSA - LAB USE ONLY 11:31:07 STERILE PRODUCTS PROCESSOR CPT-26518 PT/INR - LAB USE ONLY 11:31:07 STERILE PRODUCTS PROCESSOR CPT-G0439 [facility] Annual Wellness Exam 09:59:29 STERILE PRODUCTS PROCESSOR CPT-20275 Creatinine - LAB USE ONLY 14:37:55 STERILE PRODUCTS PROCESSOR CPT-82571 PT/INR - LAB USE ONLY 14:37:55 STERILE PRODUCTS PROCESSOR CPT-95219 Venipuncture Draw Fee 14:37:55 STERILE PRODUCTS PROCESSOR CPT-24328 LS spine comp w obliques - XRAY USE ONLY 12:59:25 STERILE PRODUCTS PROCESSOR CPT-33532 PT/INR - LAB USE ONLY 13:49:20 CDT CPT-39485 Venipuncture Draw Fee 13:49:19 CDT CPT-56041 PT/INR - LAB USE ONLY 15:48:49 CDT CPT-09517 Venipuncture Draw Fee 15:48:49 CDT CPT-76396 Venipuncture Draw Fee 11:31:59 CDT CPT-85285 PT/INR - LAB USE ONLY 11:31:59 CDT CPT-02330 Venipuncture Draw Fee 13:29:15 CDT CPT-31292 Thoracolumbar AP/Lat 15:19:19 STERILE PRODUCTS PROCESSOR CPT-G0438 Initial Annual Wellness Exam 12:18:54 STERILE PRODUCTS PROCESSOR CPT-26549 Knee 3V 09:57:38 CDT CPT-OV Office Visit 15:45:01 STERILE PRODUCTS PROCESSOR CPT-79158 Abd compl w upright 17:10:25 CDT
--- OUTSIDE RECORDS SUMMARY | 2018-07-18 07:48 | XMS REPORT | Clinical Summary ---
Author Author Admin, [employer] Organization [employer] Address Unknown Phone Unavailable Allergies, Adverse Reactions, [...] Coronary atherosclerosis of unspecified type of vessel, [place] or graft Back pain, thoracic region, left [...] Inactive Piotr Daley DO Bronchitis-Acute ICD-466.0 Inactive iPotr Daley DO Back pain, thoracic region, left ICD-724.1 Inactive Piotr Katie Daley DO Medication List Medication Instructions Start Date Stop Date Generic Name NDC Status Provider Patient Instruction GABAPENTIN 300 MG CAPS 1 po q hs for nerve pain GABAPENTIN [id number] Active Piotr Daley DO Active WARFARIN SODIUM 5 MG TABS 1 tablet daily WARFARIN SODIUM 74032249737 Active Simi Meyers Active TRAMADOL HCL 50 MG TABS 1 po tid with ES Tylenol TRAMADOL HCL 15798247588 Active Piotr Daley DO Active PREDNISONE 20 MG TAB 2 tablets today, then 1 tablet days 2 through 4 PREDNISONE 35822435246 No Longer Active Piotr Daley DO Active AZITHROMYCIN 250 MG TABS 2 po qd x 1 day, then 1 po qd x 4 days AZITHROMYCIN 33785517348 No Longer Active Piotr Daley DO Active IBUPROFEN 800 MG TABS 1 tab every 8 hours as needed IBUPROFEN 76490994623 No Longer Active Piotr Daley DO Active LOMOTIL 2.5-0.025 MG TAB 1 to 2 four times a day as needed for diarrhea 10/13 DIPHENOXYLATE-ATROPINE 60223184159 No Longer Active Piotr Daley DO Active WARFARIN SODIUM 4 MG TABS 1 tab every evening WARFARIN SODIUM 93426365539 No Longer Active Piotr Daley DO Active PREDNISONE 20 MG TAB 1 tablet twice daily for 2 days, then 1 tablet once daily for 2 days PREDNISONE 09177014426 No Longer Active Piotr Daley DO Active PROMETHAZINE HCL 25 MG TABS 1 four times a day as needed for nausea/vomiting PROMETHAZINE HCL 03040673924 No Longer Active Piotr Daley DO Active TUSSIONEX PENNKINETIC ER 10-8 MG/5ML LQCR 5ml po q12hr PRN Cough HYDROCOD POLST-CHLORPHEN POLST 76532873115 No Longer Active Piotr Daley DO Active AZITHROMYCIN 250 MG TABS 2 po qd x 1 day, then 1 po qd x 4 days AZITHROMYCIN 16757794484 No Longer Active Piotr Daley DO Active AZITHROMYCIN 250 MG TABS 2 po qd x 1 day, then 1 po qd x 4 days AZITHROMYCIN 96487413346 No Longer Active Piotr Daley DO Active LISINOPRIL-HYDROCHLOROTHIAZIDE 10-12.5 MG TABS 1 tab by mouth daily LISINOPRIL-HYDROCHLOROTHIAZIDE 71450475135 Active Hilary Ma MA Active LISINOPRIL 10 MG TABS 1/2-1 tab po every other day LISINOPRIL 38566428403 No Longer Active Piotr Daley DO Active VENTOLIN HFA 108 (90 BASE) MCG/ACT AERS 2 puffs four times a day PRN cough ALBUTEROL SULFATE 01168789890 No Longer Active Piotr Daley DO Active NYSTATIN-TRIAMCINOLONE 970185-9.1 UNIT/GM-% CREA Apply to area BID NYSTATIN-TRIAMCINOLONE 63457130806 No Longer Active Alena Chavira MACHINE FITTER Active PHISOHEX 3 % LIQD Use Directed HEXACHLOROPHENE 38227639837 No Longer Active Sandra [place] Active AZITHROMYCIN 250 MG TABS 2 po qd x 1 day, then 1 po qd x 4 days AZITHROMYCIN 33623889775 No Longer Active Katrina Rinaldi MD PhD Active AZITHROMYCIN 250 MG TABS 2 po qd x 1 day, then 1 po qd x 4 days AZITHROMYCIN 12087385263 No Longer Active Piotr Daley DO Active AZITHROMYCIN 500 MG SOLR 1 po q day AZITHROMYCIN 84851658833 No Longer Active Piotr Daley DO Active NYSTATIN-TRIAMCINOLONE 878215-6.1 UNIT/GM-% CREA apply bid 08/19 NYSTATIN-TRIAMCINOLONE 50979647654 No Longer Active Piotr Daley DO Active IBUPROFEN 800 MG TABS 1 po q 8 hours prn pain sparinly IBUPROFEN 60014956150 No Longer Active Piotr Daley DO Active VITAMIN D3 5000 UNIT CAPS 1 po daily CHOLECALCIFEROL 08918042841 Active Piotr Daley DO Active IBUPROFEN 800 MG TABS 1 po q 8 hours prn pain sparinly IBUPROFEN 800 MG TABS 708550 IBUPROFEN Inactive NYSTATIN-TRIAMCINOLONE 159329-4.1 UNIT/GM-% CREA apply bid 08/19 NYSTATIN-TRIAMCINOLONE 024824-1.1 UNIT/GM-% CREA 9796326 NYSTATIN- TRIAMCINOLONE Inactive AZITHROMYCIN 500 MG SOLR 1 po q day AZITHROMYCIN 500 MG SOLR 61533150368 AZITHROMYCIN Inactive VENTOLIN HFA 108 (90 BASE) MCG/ACT AERS 2 puffs four times a day PRN cough VENTOLIN HFA 108 (90 BASE) MCG/ACT AERS ALBUTEROL SULFATE Inactive LISINOPRIL 10 MG TABS 1/2-1 tab po every other day LISINOPRIL 10 MG TABS 538121 LISINOPRIL Inactive TUSSIONEX PENNKINETIC ER 10-8 MG/5ML LQCR 5ml po q12hr PRN Cough TUSSIONEX PENNKINETIC ER 10-8 MG/5ML LQCR HYDROCOD POLST- CHLORPHEN POLST Inactive PROMETHAZINE HCL 25 MG TABS 1 four times a day as needed for nausea/vomiting PROMETHAZINE HCL 25 MG TABS 224516 PROMETHAZINE HCL Inactive PREDNISONE 20 MG TAB 1 tablet twice daily for 2 days, then 1 tablet once daily for 2 days PREDNISONE 20 MG TAB 056875 PREDNISONE Inactive WARFARIN SODIUM 4 MG TABS 1 tab every evening WARFARIN SODIUM 4 MG TABS 079106 WARFARIN SODIUM Inactive LOMOTIL 2.5-0.025 MG TAB 1 to 2 four times a day as needed for diarrhea 10/13 LOMOTIL 2.5-0.025 MG TAB 3734099 DIPHENOXYLATE-ATROPINE Inactive IBUPROFEN 800 MG TABS 1 tab every 8 hours as needed IBUPROFEN 800 MG TABS 381158 IBUPROFEN Inactive PREDNISONE 20 MG TAB 2 tablets today, then 1 tablet days 2 through 4 PREDNISONE 20 MG TAB 328268 PREDNISONE Inactive AZITHROMYCIN 250 MG TABS 2 po qd x 1 day, then 1 po qd x 4 days AZITHROMYCIN 250 MG TABS 0933880 AZITHROMYCIN Inactive AZITHROMYCIN 250 MG TABS 2 po qd x 1 day, then 1 po qd x 4 days AZITHROMYCIN 250 MG TABS 0926175 AZITHROMYCIN Inactive NYSTATIN-TRIAMCINOLONE 822697-0.1 UNIT/GM-% CREA Apply to area BID NYSTATIN-TRIAMCINOLONE 361801-1.1 UNIT/GM-% CREA 3873670 NYSTATIN-TRIAMCINOLONE Inactive AZITHROMYCIN 250 MG TABS 2 po qd x 1 day, then 1 po qd x 4 days AZITHROMYCIN 250 MG TABS 0821780 AZITHROMYCIN Inactive AZITHROMYCIN 250 MG TABS 2 po qd x 1 day, then 1 po qd x 4 days AZITHROMYCIN 250 MG TABS 0582619 AZITHROMYCIN Inactive AZITHROMYCIN 250 MG TABS 2 po qd x 1 day, then 1 po qd x 4 days AZITHROMYCIN 250 MG TABS 8552386 AZITHROMYCIN Inactive Advance Directives Directive Description Start [...] Panel - Chemistry sodium, serum 141 mmol/L 938-923 4850/06/28 carbon dioxide, venous blood 31.0 mmol/L 21.0-32.0 [...] Negative Encounters Code Encounter Date Provider Facility CPT-57832 Level 4 Est. Patient 17:15:07 BRICKLAYER HELPER Piotr Daley [facility] CPT-04404 Level 3 Est. Patient 12:46:13 BRICKLAYER HELPER Piotr Katie Edi [facility] CPT-57090 Level 3 Est. Patient 15:14:31 BRICKLAYER HELPER Piotr Katie Edi [facility] CPT-21650 Level 3 Est. Patient 09:20:13 BRICKLAYER HELPER Piotr Katie Edi [facility] CPT-46124 Level 3 Est. Patient 09:49:40 CDT Piotr Katie Edi [facility] CPT-22398 Level 3 Est. Patient 16:28:11 CDT Piotr Katie Edi [facility] CPT-76550 Level 3 Est. Patient 12:41:58 BRICKLAYER HELPER Piotr Katie Edi [facility] CPT-03983 Level 3 Est. Patient 09:21:24 CDT Piotr Daley [facility] CPT-34961 Level 3 Est. Patient 09:21:11 CDT Piotr Katie Edi [facility] CPT-01165 Level 3 Est. Patient 11:16:29 BRICKLAYER HELPER Piotr Daley [facility] CPT-08849 Level 3 Est. Patient 18:40:19 BRICKLAYER HELPER Piotr Daley [facility] CPT-76580 Level 3 Est. Patient 19:30:[address] [facility] CPT-64973 Level 3 Est. Patient 22:06:44 CDT Katrina Rinaldi MD [facility] CPT-37546 Level 3 Est. Patient 14:20:[address] [facility] CPT-41706 Level 3 Est. Patient 14:15:22 BRICKLAYER HELPER Piot[address] Daley [facility] CPT-24154 Level 3 Est. Patient 20:19:57 BRICKLAYER HELPER Piotr Daley [facility] CPT-49097 Level 3 Est. Patient 16:44:[address] [facility] CPT-72049 Level 3 Est. Patient 08:48:46 BRICKLAYER HELPER Piotr Daely [facility] CPT-65362 Level 3 Est. Patient 21:01:[address] [facility] Procedures Code Procedure Name Date Entry Date Standard Description CPT-47009 Creatinine - LAB USE ONLY 14:37:55 BRICKLAYER HELPER CPT-64438 PT/INR - LAB USE ONLY 14:37:55 BRICKLAYER HELPER CPT-44023 Venipuncture Draw Fee 14:37:55 BRICKLAYER HELPER CPT-82525 LS spine comp w obliques - XRAY USE ONLY 12:59:25 BRICKLAYER HELPER CPT-61225 PT/INR - LAB USE ONLY 13:49:20 CDT CPT-57229 Venipuncture Draw Fee 13:49:19 CDT CPT-21192 PT/INR - LAB USE ONLY 15:48:49 CDT CPT-79497 Venipuncture Draw Fee 15:48:49 CDT CPT-91680 Venipuncture Draw Fee 11:31:59 CDT CPT-76225 PT/INR - LAB USE ONLY 11:31:59 CDT CPT-95838 Venipuncture Draw Fee 13:29:15 CDT CPT-71144 Thoracolumbar AP/Lat 15:19:19 BRICKLAYER HELPER CPT-G0438 Initial Annual Wellness Exam 12:18:54 BRICKLAYER HELPER CPT-95148 Knee 3V 09:57:38 CDT CPT-OV Office Visit 15:45:01 BRICKLAYER HELPER CPT-47141 Abd compl w upright 17:10:25 CDT
--- OUTSIDE RECORDS SUMMARY | 2018-07-18 07:49 | XMS REPORT | Clinical Summary ---
Author Author Admin, [employer] Organization [employer] Address Unknown Phone Unavailable Allergies, Adverse Reactions, [...] neoplasm of prostate V10.46 Active Alina Meyers JUMPBASTING [employer]VAS B[employer]ER Personal history of malignant neoplasm of prostate Coronary artery disease 414.00 Active Alina Meyers APRN Coronary atherosclerosis of unspecified type of vessel, [place] or graft Back pain, thoracic region, [...] Knee pain, left ICD-719.46 Inactive Sirisha Chen PROGRAM DEVELOPMENT MANAGER Actinic keratoses ICD-702.0 Inactive Sirisha Chen PROGRAM DEVELOPMENT MANAGER Back pain, thoracic region, left ICD-724.1 Inactive Piotr Daley DO Thoracic back pain ICD-724.5 Inactive Sirisha Chen PROGRAM DEVELOPMENT MANAGER Back pain lumbar ICD-724.2 Inactive Sirisha Chen PROGRAM DEVELOPMENT MANAGER Insect bite ICD-919.4 Inactive Sirisha Chen PROGRAM DEVELOPMENT MANAGER Pruritus ICD-698.9 Inactive Sirisha Chen PROGRAM DEVELOPMENT MANAGER 04/09 Bronchitis-Acute ICD-466.0 Inactive Sirisha Chen PROGRAM DEVELOPMENT MANAGER Dyspnea ICD-786.09 Inactive Sirisha Chen PROGRAM DEVELOPMENT MANAGER 05/09 Medication List Medication Instructions Start Date Stop Date Generic Name NDC Status Provider Patient Instruction WARFARIN SODIUM 4 MG ORAL TABLET 1 tablet by mouth daily except 2mg on Saturday and Saturday WARFARIN SODIUM 76662209160 Active Anahy Loja Active MELOXICAM 15 MG ORAL TABLET 1 po q day for pain with food MELOXICAM 34039658951 Active Piotr Daley DO Active PREDNISONE 10 MG ORAL TABLET 1 tablet by mouth daily PREDNISONE 78519285352 No Longer Active Emelyn Norris Active TESSALON PERLES 100 MG ORAL CAPSULE 1-2 tablet by mouth 3 times daily 04/16 BENZONATATE 87768737204 No Longer Active Emelyn Norris Active PREDNISONE 20 MG ORAL TABLET two tabs by mouth today, then one tab by mouth days two and three PREDNISONE 58884333174 No Longer Active Piotr Daley DO Active CYCLOBENZAPRINE HCL 10 MG ORAL TABLET 1 tablet by mouth three times daily as needed for muscle spasm/pain CYCLOBENZAPRINE HCL 18582663135 Active Sirisha Chen LPN Active ZITHROMAX 250 MG ORAL TABLET Take two (2 ) tablets day one, then one (1) tablet a day for four (4) more days AZITHROMYCIN 68469873718 No Longer Active Piotr Daley DO Active PROAIR HFA 108 (90 BASE) MCG/ACT INHALATION AEROSOL SOLUTION 1-2 puffs four times a day as needed ALBUTEROL SULFATE 28086545861 No Longer Active Emelyn Norris Active DOXYCYCLINE HYCLATE 100 MG ORAL CAPSULE 1 cap by mouth BID x10 days DOXYCYCLINE HYCLATE 23738862679 No Longer Active Nella Harris APRN Active PREDNISONE 20 MG ORAL TABLET 2 tabs daily for 3 days, 1 tab daily for 3 days, 1/2 tab daily for 2 days PREDNISONE 32508819958 No Longer Active Matthew Rangel MD Active TRAMADOL HCL 50 MG ORAL TABLET 1 po tid with ES Tylenol TRAMADOL HCL 31704736740 No Longer Active Matthew Rangel MD Active GABAPENTIN 300 MG ORAL CAPSULE 1 po q hs for nerve pain GABAPENTIN 59818923572 No Longer Active Matthew Rangel MD Active PREDNISONE 20 MG ORAL TABLET 2 tablets today, then 1 tablet days 2 through 4 PREDNISONE 06728504627 No Longer Active Piotr Daley DO Active AZITHROMYCIN 250 MG ORAL TABLET 2 po qd x 1 day, then 1 po qd x 4 days 07/12 AZITHROMYCIN 46184435345 No Longer Active Piotr Daley DO Active IBUPROFEN 800 MG ORAL TABLET 1 tab every 8 hours as needed 07/12 IBUPROFEN 12701933307 No Longer Active Piotr Daley DO Active LOMOTIL 2.5-0.025 MG ORAL TABLET 1 to 2 four times a day as needed for diarrhea DIPHENOXYLATE-ATROPINE 78081670416 No Longer Active Piotr Daley DO Active WARFARIN SODIUM 4 MG ORAL TABLET 1 tab every evening WARFARIN SODIUM 93477827363 No Longer Active Piotr Daley DO Active PREDNISONE 20 MG ORAL TABLET 1 tablet twice daily for 2 days, then 1 tablet once daily for 2 days PREDNISONE 10868715402 No Longer Active Piotr Daley DO Active PROMETHAZINE HCL 25 MG ORAL TABLET 1 four times a day as needed for nausea/ vomiting PROMETHAZINE HCL 12691757745 No Longer Active Piotr Daley DO Active TUSSIONEX PENNKINETIC ER 10-8 MG/5ML ORAL SUSPENSION EXTENDED RELEASE 5ml po q12hr PRN Cough HYDROCOD POLST-CHLORPHEN POLST 57329904897 No Longer Active Piotr Daley DO Active AZITHROMYCIN 250 MG ORAL TABLET 2 po qd x 1 day, then 1 po qd x 4 days 10/13 AZITHROMYCIN 83218595830 No Longer Active Piotr Daley DO Active AZITHROMYCIN 250 MG ORAL TABLET 2 po qd x 1 day, then 1 po qd x 4 days 05/07 AZITHROMYCIN 46923990598 No Longer Active Piotr Daley DO Active LISINOPRIL-HYDROCHLOROTHIAZIDE 10-12.5 MG ORAL TABLET 1 tab by mouth daily LISINOPRIL-HYDROCHLOROTHIAZIDE 37402141233 Active Piotr Daley DO Active LISINOPRIL 10 MG ORAL TABLET 1/2-1 tab po every other day LISINOPRIL 20732464791 No Longer Active Piotr Daley DO Active VENTOLIN HFA 108 (90 Base) MCG/ACT INHALATION AEROSOL SOLUTION 2 puffs four times a day PRN cough ALBUTEROL SULFATE 74642995032 No Longer Active Piotr Daley DO Active NYSTATIN-TRIAMCINOLONE 324448-0.1 UNIT/GM-% EXTERNAL CREAM Apply to area BID NYSTATIN-TRIAMCINOLONE 78967102434 No Longer Active Alena Chavira PROGRAM DEVELOPMENT MANAGER Active PHISOHEX 3 % LIQD Use Directed HEXACHLOROPHENE 05290269042 No Longer Active Sandra [place] Active AZITHROMYCIN 250 MG ORAL TABLET 2 po qd x 1 day, then 1 po qd x 4 days 10/21 AZITHROMYCIN 55513672353 No Longer Active Katrina Rinaldi MD PhD Active AZITHROMYCIN 250 MG ORAL TABLET 2 po qd x 1 day, then 1 po qd x 4 days 10/16 AZITHROMYCIN 28219333085 No Longer Active Piotr Daley DO Active AZITHROMYCIN 500 MG INTRAVENOUS SOLUTION RECONSTITUTED 1 po q day AZITHROMYCIN 81257114010 No Longer Active Piotr Daley DO Active NYSTATIN-TRIAMCINOLONE 873021-1.1 UNIT/GM-% EXTERNAL CREAM apply bid NYSTATIN-TRIAMCINOLONE 93750593631 No Longer Active Piotr Daley DO Active IBUPROFEN 800 MG ORAL TABLET 1 po q 8 hours prn pain sparinly IBUPROFEN 81542366191 No Longer Active Piotr Daley DO Active VITAMIN D3 5000 UNIT ORAL CAPSULE 1 po daily CHOLECALCIFEROL 13975204069 Active Piotr Daley DO Active DOXYCYCLINE HYCLATE 100 MG ORAL CAPSULE 1 cap by mouth BID x10 days DOXYCYCLINE HYCLATE 100 MG ORAL CAPSULE 7102449 DOXYCYCLINE HYCLATE Inactive IBUPROFEN 800 MG ORAL TABLET 1 po q 8 hours prn pain sparinly IBUPROFEN 800 MG ORAL TABLET 375952 IBUPROFEN Inactive IBUPROFEN 800 MG ORAL TABLET 1 tab every 8 hours as needed 07/12 IBUPROFEN 800 MG ORAL TABLET 010267 IBUPROFEN Inactive LOMOTIL 2.5-0.025 MG ORAL TABLET 1 to 2 four times a day as needed for diarrhea LOMOTIL 2.5-0.025 MG ORAL TABLET 1856032 DIPHENOXYLATE-ATROPINE Inactive NYSTATIN-TRIAMCINOLONE 909662-7.1 UNIT/GM-% EXTERNAL CREAM apply bid NYSTATIN-TRIAMCINOLONE 632876-6.1 UNIT/GM-% EXTERNAL CREAM 9399450 NYSTATIN-TRIAMCINOLONE Inactive NYSTATIN-TRIAMCINOLONE 628225-7.1 UNIT/GM-% EXTERNAL CREAM Apply to area BID NYSTATIN-TRIAMCINOLONE 981338-1.1 UNIT/GM-% EXTERNAL CREAM 5161969 NYSTATIN-TRIAMCINOLONE Inactive PREDNISONE 10 MG ORAL TABLET 1 tablet by mouth daily PREDNISONE 10 MG ORAL TABLET 763425 PREDNISONE Inactive PREDNISONE 20 MG ORAL TABLET two tabs by mouth today, then one tab by mouth days two and three PREDNISONE 20 MG ORAL TABLET 619403 PREDNISONE Inactive PREDNISONE 20 MG ORAL TABLET 2 tabs daily for 3 days, 1 tab daily for 3 days, 1/2 tab daily for 2 days PREDNISONE 20 MG ORAL TABLET 222990 PREDNISONE Inactive PREDNISONE 20 MG ORAL TABLET 1 tablet twice daily for 2 days, then 1 tablet once daily for 2 days PREDNISONE 20 MG ORAL TABLET 431701 PREDNISONE Inactive PREDNISONE 20 MG ORAL TABLET 2 tablets today, then 1 tablet days 2 through 4 PREDNISONE 20 MG ORAL TABLET 578780 PREDNISONE Inactive PROMETHAZINE HCL 25 MG ORAL TABLET 1 four times a day as needed for nausea/ vomiting PROMETHAZINE HCL 25 MG ORAL TABLET 260691 PROMETHAZINE HCL Inactive LISINOPRIL 10 MG ORAL TABLET 1/2-1 tab po every other day LISINOPRIL 10 MG ORAL TABLET 986225 LISINOPRIL Inactive TESSALON PERLES 100 MG ORAL CAPSULE 1-2 tablet by mouth 3 times daily 04/16 TESSALON PERLES 100 MG ORAL CAPSULE 970137 BENZONATATE Inactive TRAMADOL HCL 50 MG ORAL TABLET 1 po tid with ES Tylenol TRAMADOL HCL 50 MG ORAL TABLET 309316 TRAMADOL HCL Inactive GABAPENTIN 300 MG ORAL CAPSULE 1 po q hs for nerve pain GABAPENTIN 300 MG ORAL CAPSULE 890060 GABAPENTIN Inactive ZITHROMAX 250 MG ORAL TABLET Take two (2 ) tablets day one, then one (1) tablet a day for four (4) more days ZITHROMAX 250 MG ORAL TABLET 552480 AZITHROMYCIN Inactive AZITHROMYCIN 250 MG ORAL TABLET 2 po qd x 1 day, then 1 po qd x 4 days 05/07 AZITHROMYCIN 250 MG ORAL TABLET 892349 AZITHROMYCIN Inactive AZITHROMYCIN 250 MG ORAL TABLET 2 po qd x 1 day, then 1 po qd x 4 days 10/13 AZITHROMYCIN 250 MG ORAL TABLET 155469 AZITHROMYCIN Inactive AZITHROMYCIN 250 MG ORAL TABLET 2 po qd x 1 day, then 1 po qd x 4 days 07/12 AZITHROMYCIN 250 MG ORAL TABLET 103595 AZITHROMYCIN Inactive AZITHROMYCIN 250 MG ORAL TABLET 2 po qd x 1 day, then 1 po qd x 4 days 10/16 AZITHROMYCIN 250 MG ORAL TABLET 433419 AZITHROMYCIN Inactive AZITHROMYCIN 250 MG ORAL TABLET 2 po qd x 1 day, then 1 po qd x 4 days 10/21 AZITHROMYCIN 250 MG ORAL TABLET 253314 AZITHROMYCIN Inactive AZITHROMYCIN 500 MG INTRAVENOUS SOLUTION RECONSTITUTED 1 po q day AZITHROMYCIN 500 MG INTRAVENOUS SOLUTION RECONSTITUTED 34721784483 AZITHROMYCIN Inactive WARFARIN SODIUM 4 MG ORAL TABLET 1 tab every evening WARFARIN SODIUM 4 MG ORAL TABLET 236901 WARFARIN SODIUM Inactive VENTOLIN HFA 108 (90 Base) MCG/ACT INHALATION AEROSOL SOLUTION 2 puffs four times a day PRN cough VENTOLIN HFA 108 (90 Base) MCG/ ACT INHALATION AEROSOL SOLUTION ALBUTEROL SULFATE Inactive PROAIR HFA 108 (90 BASE) MCG/ACT INHALATION AEROSOL SOLUTION 1-2 puffs four times a day as needed PROAIR HFA 108 (90 BASE) MCG/ACT INHALATION AEROSOL SOLUTION ALBUTEROL SULFATE Inactive TUSSIONEX PENNKINETIC ER 10-8 MG/5ML ORAL SUSPENSION EXTENDED RELEASE 5ml po q12hr PRN Cough TUSSIONEX PENNKINETIC ER 10-8 MG/5ML ORAL SUSPENSION EXTENDED RELEASE HYDROCOD POLST-CHLORPHEN POLST Inactive Advance Directives Directive Description Start Date [...] % 11.0-15.0 platelet count 172 THOUSAND/UL 10*3/mm3 486-119 4891/04/12 mean platelet volume 8.6 fL 7.5-12.5 Lab Report: Prothrombin Time Hemochron - Coagulation prothrombin time (patient) 33.0 SECS s 18.9-24.9 Encounters Code Encounter Date Provider Facility CPT-71152 Level 3 Est. Patient 15:59:25 PSYCH SPECIALIST Piotr Daley [facility] CPT-36115 Level 3 Est. Patient 12:33:59 PSYCH SPECIALIST Piotr Daley [facility] CPT-95046 Level 3 Est. Patient 15:56:17 PSYCH SPECIALIST Piotr Daley [facility] CPT-77022 Level 3 Est. Patient 10:34:54 PSYCH SPECIALIST Piotr Daley [facility] CPT-24394 Level 3 Est. Patient 17:10:[address] [facility] CPT-08590 Level 3 Est. Patient 10:48:17 PSYCH SPECIALIST Matthew Rangel MD [facility] CPT-32851 Level 4 Est. Patient 17:15:07 PSYCH SPECIALIST Piotr Daley [facility] CPT-75010 Level 3 Est. Patient 12:46:13 PSYCH SPECIALIST Piotr Daley [facility] CPT-14309 Level 3 Est. Patient 15:14:31 PSYCH SPECIALIST Piotr Katie Daley [facility] CPT-04093 Level 3 Est. Patient 09:20:13 PSYCH SPECIALIST Piotr Daley [facility] CPT-12515 Level 3 Est. Patient 09:49:40 CDT Piotr Daley [facility] CPT-87733 Level 3 Est. Patient 16:28:11 CDT Piotr Daley [facility] CPT-79078 Level 3 Est. Patient 12:41:58 PSYCH SPECIALIST Piotr Daley [facility] CPT-27437 Level 3 Est. Patient 09:21:24 CDT Piotr Daley [facility] CPT-42884 Level 3 Est. Patient 09:21:11 CDT Piotr Daley [facility] CPT-92443 Level 3 Est. Patient 11:16:29 PSYCH SPECIALIST Piotr Daley [facility] CPT-90184 Level 3 Est. Patient 18:40:19 PSYCH SPECIALIST Piotr Daley [facility] CPT-01100 Level 3 Est. Patient 19:30:50 CDT Piotr Daley [facility] CPT-79155 Level 3 Est. Patient 22:06:44 CDT Katrina Rinaldi MD PhD [facility]-28022 Level 3 Est. Patient 14:20:00 CDT Piotr Daley [facility] CPT-94002 Level 3 Est. Patient 14:15:22 PSYCH SPECIALIST Piotr Daley [facility] CPT-11836 Level 3 Est. Patient 20:19:57 PSYCH SPECIALIST Piotr Daley [facility] CPT-21664 Level 3 Est. Patient 16:44:32 CDT Piotr Daley [facility] CPT-37710 Level 3 Est. Patient 08:48:46 PSYCH SPECIALIST Piotr Daley [facility] CPT-38605 Level 3 Est. Patient 21:01:21 CDT Piotr Daley [facility] Procedures Code Procedure Name Date Entry Date Standard Description CPT-60438 Sacroiliac jt < 3V - XRAY USE ONLY 16:45:19 PSYCH SPECIALIST 05/09 CPT-35330 LS spine comp w obliques - XRAY USE ONLY 14:52:26 PSYCH SPECIALIST CPT-46977 Chest, 2 views 12:55:58 PSYCH SPECIALIST CPT-G0439 Subsequent Annual Wellness Exam 10:34:52 PSYCH SPECIALIST CPT-82694 BMP - LAB USE ONLY 17:19:11 PSYCH SPECIALIST CPT-73128 PT/INR - LAB USE ONLY 17:19:[address] [facility] CPT-35884 Venipuncture Draw Fee 17:19:[address] [facility] CPT-37884 PT/INR - LAB USE ONLY 08:12:25 PSYCH SPECIALIST CPT-63570 Venipuncture Draw Fee 08:12:24 PSYCH SPECIALIST CPT-33215 Venipuncture Draw Fee 11:31:07 PSYCH SPECIALIST CPT-67513 TPSA - LAB USE ONLY 11:31:07 PSYCH SPECIALIST CPT-76140 PT/INR - LAB USE ONLY 11:31:07 PSYCH SPECIALIST CPT-G0439 Subsequent Annual Wellness Exam 09:59:29 PSYCH SPECIALIST CPT-42938 Creatinine - LAB USE ONLY 14:37:55 PSYCH SPECIALIST CPT-88896 PT/INR - LAB USE ONLY 14:37:55 PSYCH SPECIALIST CPT-28306 Venipuncture Draw Fee 14:37:55 PSYCH SPECIALIST CPT-14304 LS spine comp w obliques - XRAY USE ONLY 12:59:25 PSYCH SPECIALIST CPT-18998 PT/INR - LAB USE ONLY 13:49:20 CDT CPT-56479 Venipuncture Draw Fee 13:49:19 CDT CPT-42110 PT/INR - LAB USE ONLY 15:48:49 CDT CPT-36460 Venipuncture Draw Fee 15:48:49 CDT CPT-27249 Venipuncture Draw Fee 11:31:59 CDT CPT-94809 PT/INR - LAB USE ONLY 11:31:59 CDT CPT-45980 Venipuncture Draw Fee 13:29:15 CDT CPT-48829 Thoracolumbar AP/Lat 15:19:19 PSYCH SPECIALIST CPT-G0438 Initial Annual Wellness Exam 12:18:54 PSYCH SPECIALIST CPT-29628 Knee 3V 09:57:38 CDT CPT-OV Office Visit 15:45:01 PSYCH SPECIALIST CPT-49839 Abd compl w upright 17:10:25 CDT
--- OUTSIDE RECORDS SUMMARY | 2018-07-18 07:49 | XMS REPORT | Clinical Summary ---
Author Author Admin, E Organization [employer] Address Unknown Phone Unavailable Allergies, Adverse Reactions, [...] Acute bronchitis Leg pain, right 729.5 Active Pitor Katie Edi DO Pain in limb Right [...] neoplasm of prostate V10.46 Active Alina Meyers ONLINE COMMUNITY MANAGER Personal history of malignant neoplasm of prostate Coronary artery disease 414.00 Active Alina Luigi ONLINE COMMUNITY MANAGER Coronary atherosclerosis of unspecified type of vessel, point lay ira or graft Back pain, thoracic region, left [...] DO SCREENING, COLON CANCER ICD-V76.51 Inactive Katrina Rinalid MD PhD BRONCHITIS-ACUTE ICD-466.0 Inactive Piotr Daley DO Bronchitis-Acute ICD-466.0 Inactive Piotr Daley DO Back pain, thoracic region, left ICD-724.1 Inactive Piotr Daley DO Medication List Medication Instructions Start Date Stop Date Generic Name NDC Status Provider Patient Instruction WARFARIN SODIUM 5 MG TABS 1 tablet daily WARFARIN SODIUM 16730811351 Active Simi Meyers Active TRAMADOL HCL 50 MG TABS 1 po tid with ES Tylenol TRAMADOL HCL 23136792576 Active Piotr Daley DO Active PREDNISONE 20 MG TAB 2 tablets today, then 1 tablet days 2 through 4 PREDNISONE 97266266947 No Longer Active Piotr Daley DO Active AZITHROMYCIN 250 MG TABS 2 po qd x 1 day, then 1 po qd x 4 days AZITHROMYCIN 97121198864 No Longer Active Piotr Daley DO Active IBUPROFEN 800 MG TABS 1 tab every 8 hours as needed IBUPROFEN 34754982282 No Longer Active Piotr Daley DO Active LOMOTIL 2.5-0.025 MG TAB 1 to 2 four times a day as needed for diarrhea 10/13 DIPHENOXYLATE-ATROPINE 41358099813 No Longer Active Piotr Daley DO Active WARFARIN SODIUM 4 MG TABS 1 tab every evening WARFARIN SODIUM 25213288096 No Longer Active Piotr aDley DO Active PREDNISONE 20 MG TAB 1 tablet twice daily for 2 days, then 1 tablet once daily for 2 days PREDNISONE 40314559616 No Longer Active Piotr Daley DO Active PROMETHAZINE HCL 25 MG TABS 1 four times a day as needed for nausea/vomiting PROMETHAZINE HCL 21344018830 No Longer Active Piotr Daley DO Active TUSSIONEX PENNKINETIC ER 10-8 MG/5ML LQCR 5ml po q12hr PRN Cough HYDROCOD POLST-CHLORPHEN POLST 19036228249 No Longer Active Piotr Daley DO Active AZITHROMYCIN 250 MG TABS 2 po qd x 1 day, then 1 po qd x 4 days AZITHROMYCIN 30641944780 No Longer Active Piotr Daley DO Active AZITHROMYCIN 250 MG TABS 2 po qd x 1 day, then 1 po qd x 4 days AZITHROMYCIN 10124679595 No Longer Active Piotr Daley DO Active LISINOPRIL-HYDROCHLOROTHIAZIDE 10-12.5 MG TABS 1 tab by mouth daily LISINOPRIL-HYDROCHLOROTHIAZIDE 34232870086 Active Hilary Ma MA Active LISINOPRIL 10 MG TABS 1/2-1 tab po every other day LISINOPRIL 65952307626 No Longer Active Piotr Daley DO Active VENTOLIN HFA 108 (90 BASE) MCG/ACT AERS 2 puffs four times a day PRN cough ALBUTEROL SULFATE 88654425885 No Longer Active Piotr Daley DO Active NYSTATIN-TRIAMCINOLONE 736154-4.1 UNIT/GM-% CREA Apply to area BID NYSTATIN-TRIAMCINOLONE 20106493557 No Longer Active Alena Oswaldum CLAIM CLERK Active PHISOHEX 3 % LIQD Use Directed HEXACHLOROPHENE 80077514150 No Longer Active Sandra Orange Active AZITHROMYCIN 250 MG TABS 2 po qd x 1 day, then 1 po qd x 4 days AZITHROMYCIN 11371178759 No Longer Active Katrina Rinaldi MD PhD Active AZITHROMYCIN 250 MG TABS 2 po qd x 1 day, then 1 po qd x 4 days AZITHROMYCIN 58426846401 No Longer Active Piotr Daley DO Active AZITHROMYCIN 500 MG SOLR 1 po q day AZITHROMYCIN 95681334425 No Longer Active Piotr Daley DO Active NYSTATIN-TRIAMCINOLONE 461102-1.1 UNIT/GM-% CREA apply bid 08/19 NYSTATIN-TRIAMCINOLONE 95336058208 No Longer Active Piotr Daley DO Active IBUPROFEN 800 MG TABS 1 po q 8 hours prn pain sparinly IBUPROFEN 44438276410 No Longer Active Piotr Daley DO Active VITAMIN D3 5000 UNIT CAPS 1 po daily CHOLECALCIFEROL 36652667538 Active Piotr Daley DO Active IBUPROFEN 800 MG TABS 1 po q 8 hours prn pain sparinly IBUPROFEN 800 MG TABS 145437 IBUPROFEN Inactive NYSTATIN-TRIAMCINOLONE 232865-4.1 UNIT/GM-% CREA apply bid 08/19 NYSTATIN-TRIAMCINOLONE 305166-5.1 UNIT/GM-% CREA 6725517 NYSTATIN- TRIAMCINOLONE Inactive AZITHROMYCIN 500 MG SOLR 1 po q day AZITHROMYCIN 500 MG SOLR 54577802872 AZITHROMYCIN Inactive VENTOLIN HFA 108 (90 BASE) MCG/ACT AERS 2 puffs four times a day PRN cough VENTOLIN HFA 108 (90 BASE) MCG/ACT AERS ALBUTEROL SULFATE Inactive LISINOPRIL 10 MG TABS 1/2-1 tab po every other day LISINOPRIL 10 MG TABS 800614 LISINOPRIL Inactive TUSSIONEX PENNKINETIC ER 10-8 MG/5ML LQCR 5ml po q12hr PRN Cough TUSSIONEX PENNKINETIC ER 10-8 MG/5ML LQCR HYDROCOD POLST- CHLORPHEN POLST Inactive PROMETHAZINE HCL 25 MG TABS 1 four times a day as needed for nausea/vomiting PROMETHAZINE HCL 25 MG TABS 433069 PROMETHAZINE HCL Inactive PREDNISONE 20 MG TAB 1 tablet twice daily for 2 days, then 1 tablet once daily for 2 days PREDNISONE 20 MG TAB 583165 PREDNISONE Inactive WARFARIN SODIUM 4 MG TABS 1 tab every evening WARFARIN SODIUM 4 MG TABS 889271 WARFARIN SODIUM Inactive LOMOTIL 2.5-0.025 MG TAB 1 to 2 four times a day as needed for diarrhea 10/13 LOMOTIL 2.5-0.025 MG TAB 8548107 DIPHENOXYLATE-ATROPINE Inactive IBUPROFEN 800 MG TABS 1 tab every 8 hours as needed IBUPROFEN 800 MG TABS 326082 IBUPROFEN Inactive PREDNISONE 20 MG TAB 2 tablets today, then 1 tablet days 2 through 4 PREDNISONE 20 MG TAB 232077 PREDNISONE Inactive AZITHROMYCIN 250 MG TABS 2 po qd x 1 day, then 1 po qd x 4 days AZITHROMYCIN 250 MG TABS 2428537 AZITHROMYCIN Inactive AZITHROMYCIN 250 MG TABS 2 po qd x 1 day, then 1 po qd x 4 days AZITHROMYCIN 250 MG TABS 1340989 AZITHROMYCIN Inactive NYSTATIN-TRIAMCINOLONE 072682-1.1 UNIT/GM-% CREA Apply to area BID NYSTATIN-TRIAMCINOLONE 346426-1.1 UNIT/GM-% CREA 4673830 NYSTATIN-TRIAMCINOLONE Inactive AZITHROMYCIN 250 MG TABS 2 po qd x 1 day, then 1 po qd x 4 days AZITHROMYCIN 250 MG TABS 8814771 AZITHROMYCIN Inactive AZITHROMYCIN 250 MG TABS 2 po qd x 1 day, then 1 po qd x 4 days AZITHROMYCIN 250 MG TABS 0556010 AZITHROMYCIN Inactive AZITHROMYCIN 250 MG TABS 2 po qd x 1 day, then 1 po qd x 4 days AZITHROMYCIN 250 MG TABS 9074048 AZITHROMYCIN Inactive Advance Directives Directive Description Start [...] Panel - Chemistry sodium, serum 141 mmol/L 380-590 0157/06/28 carbon dioxide, venous blood 31.0 mmol/L 21.0-32.0 [...] Negative Encounters Code Encounter Date Provider Facility CPT-21101 Level 3 Est. Patient 15:14:31 MEDICAL RECORD CLERK Piotr Katie Edi [facility] CPT-90480 Level 3 Est. Patient 09:20:13 MEDICAL RECORD CLERK Piotr Katie Daley [facility] CPT-72401 Level 3 Est. Patient 09:49:40 CDT Piotr Daley [facility] CPT-10866 Level 3 Est. Patient 16:28:11 CDT Piotr Wilson Edi [facility] CPT-77858 Level 3 Est. Patient 12:41:58 MEDICAL RECORD CLERK Piotr Katie Daley [facility] CPT-67585 Level 3 Est. Patient 09:21:24 CDT Piotr Daley [facility] CPT-12631 Level 3 Est. Patient 09:21:11 CDT Piotr Wilson Edi [facility] CPT-44143 Level 3 Est. Patient 11:16:29 MEDICAL RECORD CLERK Piotr Wilson Edi [facility] CPT-87818 Level 3 Est. Patient 18:40:19 MEDICAL RECORD CLERK Piotr Katie Daley [facility] CPT-10250 Level 3 Est. Patient 19:30:50 CDT Piotr Katie Daley [facility] CPT-94196 Level 3 Est. Patient 22:06:44 CDT Katrina Rinaldi MD PhD [facility] CPT-79540 Level 3 Est. Patient 14:20:00 CDT Piotr Daley [facility] CPT-24272 Level 3 Est. Patient 14:15:22 MEDICAL RECORD CLERK Piotr Daley [facility] CPT-15296 Level 3 Est. Patient 20:19:57 MEDICAL RECORD CLERK Piotr Daley [facility] CPT-76544 Level 3 Est. Patient 16:44:32 CDT Piotr Wilson [facility] CPT-34810 Level 3 Est. Patient 08:48:46 MEDICAL RECORD CLERK Piotr W Edi DO [facility] CPT-36866 Level 3 Est. Patient 21:01:21 CDT Piotr Daley [facility] Procedures Code Procedure Name Date Entry Date Standard Description CPT-59549 PT/INR - LAB USE ONLY 13:49:20 CDT CPT-28506 Venipuncture Draw Fee 13:49:19 CDT CPT-55574 PT/INR - LAB USE ONLY 15:48:49 CDT CPT-60533 Venipuncture Draw Fee 15:48:49 CDT CPT-25209 Venipuncture Draw Fee 11:31:59 CDT CPT-38356 PT/INR - LAB USE ONLY 11:31:59 CDT CPT-00703 Venipuncture Draw Fee 13:29:15 CDT CPT-19783 Thoracolumbar AP/Lat 15:19:19 MEDICAL RECORD CLERK CPT-G0438 Initial Annual Wellness Exam 12:18:54 MEDICAL RECORD CLERK CPT-52133 Knee 3V 09:57:38 CDT CPT-OV Office Visit 15:45:01 MEDICAL RECORD CLERK CPT-22296 Abd compl w upright 17:10:25 CDT
--- OUTSIDE RECORDS SUMMARY | 2018-07-18 07:50 | XMS REPORT | Clinical Summary ---
Author Author Admin, YONG Organization [facility] Address Unknown Phone Unavailable Allergies, Adverse Reactions, [...] facility Actinic keratoses 702.0 Active Piotr Katie Daley DO Actinic keratosis Personal history of malignant neoplasm of prostate V10.46 Active Alina Meyers APRN Personal history of malignant neoplasm of prostate Coronary artery disease 414.00 Active Alina Meyers APRN Coronary atherosclerosis of unspecified type of vessel, [place] or graft Back pain, thoracic region, left 724.1 Active Piotr Katie Daley DO Pain in thoracic spine FLANK PAIN, RIGHT ICD-789.09 Inactive Katrina Rinaldi MD PhD HEALTH MAINTENANCE EXAM ICD-V70.0 Inactive Katrina Rinaldi MD PhD BRONCHITIS-ACUTE ICD-466.0 Inactive Piotr Katie Edi DO SCREENING, COLON CANCER ICD-V76.51 Inactive Katrina Rinaldi MD PhD BRONCHITIS-ACUTE ICD-466.0 Inactive Piotr Daley DO Bronchitis-Acute ICD-466.0 Inactive Piotr Katie Edi DO Medication List Medication Instructions Start Date Stop Date Generic Name NDC Status Provider Patient Instruction TRAMADOL HCL 50 MG TABS 1 po tid with ES Tylenol TRAMADOL HCL 97904522555 Active Piotr Daley DO Active WARFARIN SODIUM 5 MG TABS 1 tablet daily except for Saturday and Sat 1/2 tablet. WARFARIN SODIUM 98203590433 Active Piotr Daley DO Active PREDNISONE 20 MG TAB 2 tablets today, then 1 tablet days 2 through 4 PREDNISONE 63344166924 No Longer Active Piotr Daley DO Active AZITHROMYCIN 250 MG TABS 2 po qd x 1 day, then 1 po qd x 4 days AZITHROMYCIN 08345445082 No Longer Active Piotr Daley DO Active IBUPROFEN 800 MG TABS 1 tab every 8 hours as needed IBUPROFEN 84476785800 No Longer Active Piotr Daley DO Active LOMOTIL 2.5-0.025 MG TAB 1 to 2 four times a day as needed for diarrhea 10/13 DIPHENOXYLATE-ATROPINE 80268712381 No Longer Active Piotr Daley DO Active WARFARIN SODIUM 4 MG TABS 1 tab every evening WARFARIN SODIUM 70744166753 No Longer Active Piotr Daley DO Active PREDNISONE 20 MG TAB 1 tablet twice daily for 2 days, then 1 tablet once daily for 2 days PREDNISONE 90801861607 No Longer Active Piotr Daley DO Active PROMETHAZINE HCL 25 MG TABS 1 four times a day as needed for nausea/vomiting PROMETHAZINE HCL 16854599473 No Longer Active Piotr Daley DO Active TUSSIONEX PENNKINETIC ER 10-8 MG/5ML LQCR 5ml po q12hr PRN Cough HYDROCOD POLST-CHLORPHEN POLST 70250107726 No Longer Active Piotr Daley DO Active AZITHROMYCIN 250 MG TABS 2 po qd x 1 day, then 1 po qd x 4 days AZITHROMYCIN 01051242662 No Longer Active Piotr Daley DO Active AZITHROMYCIN 250 MG TABS 2 po qd x 1 day, then 1 po qd x 4 days AZITHROMYCIN 65863432934 No Longer Active Piotr Daley DO Active LISINOPRIL-HYDROCHLOROTHIAZIDE 10-12.5 MG TABS 1 tab by mouth daily LISINOPRIL-HYDROCHLOROTHIAZIDE 37822807715 Active Hilary Ma MA Active LISINOPRIL 10 MG TABS 1/2-1 tab po every other day LISINOPRIL 24506616971 No Longer Active Piotr Daley DO Active VENTOLIN HFA 108 (90 BASE) MCG/ACT AERS 2 puffs four times a day PRN cough ALBUTEROL SULFATE 68148804615 No Longer Active Piotr Daley DO Active NYSTATIN-TRIAMCINOLONE 256722-4.1 UNIT/GM-% CREA Apply to area BID NYSTATIN-TRIAMCINOLONE 65132133890 No Longer Active Alena Jarvis Fan LOT TECHNICIAN Active PHISOHEX 3 % LIQD Use Directed HEXACHLOROPHENE 98694385615 No Longer Active Sandra [place] Active AZITHROMYCIN 250 MG TABS 2 po qd x 1 day, then 1 po qd x 4 days AZITHROMYCIN 26054139968 No Longer Active Katrina Rinaldi MD PhD Active AZITHROMYCIN 250 MG TABS 2 po qd x 1 day, then 1 po qd x 4 days AZITHROMYCIN 25929163003 No Longer Active Piotr Daley DO Active AZITHROMYCIN 500 MG SOLR 1 po q day AZITHROMYCIN 56403284650 No Longer Active Piotr Daley DO Active NYSTATIN-TRIAMCINOLONE 163631-3.1 UNIT/GM-% CREA apply bid 08/19 NYSTATIN-TRIAMCINOLONE 84714785118 No Longer Active Piotr Daley DO Active IBUPROFEN 800 MG TABS 1 po q 8 hours prn pain sparinly IBUPROFEN 95162768152 No Longer Active Piotr Daley DO Active VITAMIN D3 5000 UNIT CAPS 1 po daily CHOLECALCIFEROL 69990834259 Active Piotr Daley DO Active IBUPROFEN 800 MG TABS 1 po q 8 hours prn pain sparinly IBUPROFEN 800 MG TABS 374233 IBUPROFEN Inactive NYSTATIN-TRIAMCINOLONE 801764-3.1 UNIT/GM-% CREA apply bid 08/19 NYSTATIN-TRIAMCINOLONE 458655-5.1 UNIT/GM-% CREA 8454871 NYSTATIN- TRIAMCINOLONE Inactive AZITHROMYCIN 500 MG SOLR 1 po q day AZITHROMYCIN 500 MG SOLR 652205 AZITHROMYCIN Inactive VENTOLIN HFA 108 (90 BASE) MCG/ACT AERS 2 puffs four times a day PRN cough VENTOLIN HFA 108 (90 BASE) MCG/ACT AERS ALBUTEROL SULFATE Inactive LISINOPRIL 10 MG TABS 1/2-1 tab po every other day LISINOPRIL 10 MG TABS 524869 LISINOPRIL Inactive TUSSIONEX PENNKINETIC ER 10-8 MG/5ML LQCR 5ml po q12hr PRN Cough TUSSIONEX PENNKINETIC ER 10-8 MG/5ML LQCR HYDROCOD POLST- CHLORPHEN POLST Inactive PROMETHAZINE HCL 25 MG TABS 1 four times a day as needed for nausea/vomiting PROMETHAZINE HCL 25 MG TABS 153998 PROMETHAZINE HCL Inactive PREDNISONE 20 MG TAB 1 tablet twice daily for 2 days, then 1 tablet once daily for 2 days PREDNISONE 20 MG TAB 956291 PREDNISONE Inactive WARFARIN SODIUM 4 MG TABS 1 tab every evening WARFARIN SODIUM 4 MG TABS 326032 WARFARIN SODIUM Inactive LOMOTIL 2.5-0.025 MG TAB 1 to 2 four times a day as needed for diarrhea 10/13 LOMOTIL 2.5-0.025 MG TAB 8577555 DIPHENOXYLATE-ATROPINE Inactive IBUPROFEN 800 MG TABS 1 tab every 8 hours as needed IBUPROFEN 800 MG TABS 008562 IBUPROFEN Inactive PREDNISONE 20 MG TAB 2 tablets today, then 1 tablet days 2 through 4 PREDNISONE 20 MG TAB 628001 PREDNISONE Inactive AZITHROMYCIN 250 MG TABS 2 po qd x 1 day, then 1 po qd x 4 days AZITHROMYCIN 250 MG TABS 6751350 AZITHROMYCIN Inactive AZITHROMYCIN 250 MG TABS 2 po qd x 1 day, then 1 po qd x 4 days AZITHROMYCIN 250 MG TABS 2903365 AZITHROMYCIN Inactive NYSTATIN-TRIAMCINOLONE 688614-7.1 UNIT/GM-% CREA Apply to area BID NYSTATIN-TRIAMCINOLONE 335196-1.1 UNIT/GM-% CREA 7272344 NYSTATIN-TRIAMCINOLONE Inactive AZITHROMYCIN 250 MG TABS 2 po qd x 1 day, then 1 po qd x 4 days AZITHROMYCIN 250 MG TABS 3642126 AZITHROMYCIN Inactive AZITHROMYCIN 250 MG TABS 2 po qd x 1 day, then 1 po qd x 4 days AZITHROMYCIN 250 MG TABS 9170187 AZITHROMYCIN Inactive AZITHROMYCIN 250 MG TABS 2 po qd x 1 day, then 1 po qd x 4 days AZITHROMYCIN 250 MG TABS 2455330 AZITHROMYCIN Inactive Advance Directives Directive Description Start [...] mg/g mg/g{creat} 0-29 sodium, serum 140 mmol/L 877-385 8404/07/17 potassium, serum 4.2 mmol/L 3.5-5.2 chloride, serum [...] 5.0-8.5 Encounters Code Encounter Date Provider Facility CPT-62060 Level 3 Est. Patient 15:14:31 CATERING CHEF Piotr Daley [facility] CPT-01898 Level 3 Est. Patient 09:20:13 CATERING CHEF Piotr Daley [facility]-70800 Level 3 Est. Patient 09:49:40 CDT Piotr Daley [facility] CPT-08908 Level 3 Est. Patient 16:28:11 CDT Piotr Daley [facility] CPT-70751 Level 3 Est. Patient 12:41:58 CATERING CHEF Piotr Daley [facility] CPT-07986 Level 3 Est. Patient 09:21:24 CDT Piotr Daley [facility] CPT-94530 Level 3 Est. Patient 09:21:11 CDT Piotr Daley [facility] CPT-31234 Level 3 Est. Patient 11:16:29 CATERING CHEF Piotr Daley [facility] CPT-31353 Level 3 Est. Patient 18:40:19 CATERING CHEF Piotr Daley [facility]-40736 Level 3 Est. Patient 19:30:50 CDT Piotr Daley [facility] CPT-32454 Level 3 Est. Patient 22:06:44 CDT Katrina Rinaldi MD PhD [facility]-79526 Level 3 Est. Patient 14:20:00 CDT Piotr Daley [facility] CPT-99669 Level 3 Est. Patient 14:15:22 CATERING CHEF Piotr Daley [facility] CPT-89461 Level 3 Est. Patient 20:19:57 CATERING CHEF Piotr Daley [facility] CPT-67207 Level 3 Est. Patient 16:44:32 CDT Piotr Wilson Edi [facility] CPT-82672 Level 3 Est. Patient 08:48:46 CATERING CHEF Piotr Katie [facility] CPT-75964 Level 3 Est. Patient 21:01:21 CDT Piotr Wilson [facility] Procedures Code Procedure Name Date Entry Date Standard Description CPT-98738 Thoracolumbar AP/Lat 15:19:19 CATERING CHEF CPT-G0438 Initial Annual Wellness Exam 12:18:54 CATERING CHEF CPT-46529 Knee 3V 09:57:38 CDT CPT-OV Office Visit 15:45:01 CATERING CHEF CPT-65753 Abd compl w upright 17:10:25 CDT
--- OUTSIDE RECORDS SUMMARY | 2018-07-18 07:50 | XMS REPORT | Clinical Summary ---
Author Author Admin, YONG Organization [facility] Address Unknown Phone Unavailable Allergies, Adverse [...] Other seborrheic keratosis Bronchitis-Acute 466.0 Inactive Piotr Daley DO Acute bronchitis Leg pain, right 729.5 Active Piotr Daley DO Pain in limb Right leg pain 729.5 Active Piotr Daley DO Pain in limb Bronchitis-Acute 466.0 Active Piotr Katie Daley DO Acute bronchitis FLANK PAIN, RIGHT ICD-789.09 Inactive Katrina Rinaldi [...] 1 tablet days 2 through 4 PREDNISONE 79479783155 Active Piotr Daley DO Active AZITHROMYCIN 250 MG TABS 2 po qd x 1 day, then 1 po qd x 4 days AZITHROMYCIN 68854260663 No Longer Active Piotr Daley DO Active IBUPROFEN 800 MG TABS 1 tab every 8 hours as needed IBUPROFEN 89613047702 No Longer Active Piotr Daley DO Active LOMOTIL 2.5-0.025 MG TAB 1 to 2 four times a day as needed for diarrhea 10/13 DIPHENOXYLATE-ATROPINE 74306166404 No Longer Active Piotr Daley DO Active WARFARIN SODIUM 5 MG TABS 1 tablet daily except for Saturday and 04/09 tablet. WARFARIN SODIUM 48944836041 Active Piotr Daley DO Active WARFARIN SODIUM 4 MG TABS 1 tab every evening WARFARIN SODIUM 46685445658 No Longer Active Piotr Daley DO Active PREDNISONE 20 MG TAB 1 tablet twice daily for 2 days, then 1 tablet once daily for 2 days PREDNISONE 01918373921 No Longer Active Piotr Daley DO Active PROMETHAZINE HCL 25 MG TABS 1 four times a day as needed for nausea/vomiting PROMETHAZINE HCL 47764160421 No Longer Active Piotr Daley DO Active TUSSIONEX PENNKINETIC ER 10-8 MG/5ML LQCR 5ml po q12hr PRN Cough HYDROCOD POLST-CHLORPHEN POLST 97074667162 No Longer Active Piotr Daley DO Active AZITHROMYCIN 250 MG TABS 2 po qd x 1 day, then 1 po qd x 4 days AZITHROMYCIN 03625299415 No Longer Active Piotr Daley DO Active AZITHROMYCIN 250 MG TABS 2 po qd x 1 day, then 1 po qd x 4 days AZITHROMYCIN 40577315684 No Longer Active Piotr Daley DO Active LISINOPRIL-HYDROCHLOROTHIAZIDE 10-12.5 MG TABS 1 tab by mouth daily LISINOPRIL-HYDROCHLOROTHIAZIDE 49185655720 Active Piotr Daley DO Active LISINOPRIL 10 MG TABS 1/2-1 tab po every other day LISINOPRIL 21872488642 No Longer Active Piotr Daley DO Active VENTOLIN HFA 108 (90 BASE) MCG/ACT AERS 2 puffs four times a day PRN cough ALBUTEROL SULFATE 37315089780 No Longer Active Piotr Daley DO Active NYSTATIN-TRIAMCINOLONE 382902-0.1 UNIT/GM-% CREA Apply to area BID NYSTATIN-TRIAMCINOLONE 84074177656 No Longer Active Alena Chavira PLUCK TRIMMER Active PHISOHEX 3 % LIQD Use Directed HEXACHLOROPHENE 04430496832 No Longer Active Sandra [place] Active AZITHROMYCIN 250 MG TABS 2 po qd x 1 day, then 1 po qd x 4 days AZITHROMYCIN 74777236208 No Longer Active Katrina Rinaldi MD PhD Active AZITHROMYCIN 250 MG TABS 2 po qd x 1 day, then 1 po qd x 4 days AZITHROMYCIN 72869610591 No Longer Active Piotr Daley DO Active AZITHROMYCIN 500 MG SOLR 1 po q day AZITHROMYCIN 73019417350 No Longer Active Piotr Daley DO Active NYSTATIN-TRIAMCINOLONE 792162-4.1 UNIT/GM-% CREA apply bid 08/19 NYSTATIN-TRIAMCINOLONE 64518102558 No Longer Active Piotr Daley DO Active IBUPROFEN 800 MG TABS 1 po q 8 hours prn pain sparinly IBUPROFEN 15784844390 No Longer Active Piotr Daley DO Active VITAMIN D3 5000 UNIT CAPS 1 po daily CHOLECALCIFEROL 28374011218 Active Piotr Daley DO Active IBUPROFEN 800 MG TABS 1 po q 8 hours prn pain sparinly IBUPROFEN 800 MG TABS 258808 IBUPROFEN Inactive NYSTATIN-TRIAMCINOLONE 717540-4.1 UNIT/GM-% CREA apply bid 08/19 NYSTATIN-TRIAMCINOLONE 930315-3.1 UNIT/GM-% CREA 3776373 NYSTATIN- TRIAMCINOLONE Inactive AZITHROMYCIN 500 MG SOLR 1 po q day AZITHROMYCIN 500 MG SOLR 571532 AZITHROMYCIN Inactive VENTOLIN HFA 108 (90 BASE) MCG/ACT AERS 2 puffs four times a day PRN cough VENTOLIN HFA 108 (90 BASE) MCG/ACT AERS ALBUTEROL SULFATE Inactive LISINOPRIL 10 MG TABS 1/2-1 tab po every other day LISINOPRIL 10 MG TABS 849568 LISINOPRIL Inactive TUSSIONEX PENNKINETIC ER 10-8 MG/5ML LQCR 5ml po q12hr PRN Cough TUSSIONEX PENNKINETIC ER 10-8 MG/5ML LQCR HYDROCOD POLST- CHLORPHEN POLST Inactive PROMETHAZINE HCL 25 MG TABS 1 four times a day as needed for nausea/vomiting PROMETHAZINE HCL 25 MG TABS 298618 PROMETHAZINE HCL Inactive PREDNISONE 20 MG TAB 1 tablet twice daily for 2 days, then 1 tablet once daily for 2 days PREDNISONE 20 MG TAB 769837 PREDNISONE Inactive WARFARIN SODIUM 4 MG TABS 1 tab every evening WARFARIN SODIUM 4 MG TABS 080044 WARFARIN SODIUM Inactive LOMOTIL 2.5-0.025 MG TAB 1 to 2 four times a day as needed for diarrhea 10/13 LOMOTIL 2.5-0.025 MG TAB 3643647 DIPHENOXYLATE-ATROPINE Inactive IBUPROFEN 800 MG TABS 1 tab every 8 hours as needed IBUPROFEN 800 MG TABS 651006 IBUPROFEN Inactive AZITHROMYCIN 250 MG TABS 2 po qd x 1 day, then 1 po qd x 4 days AZITHROMYCIN 250 MG TABS 8095771 AZITHROMYCIN Inactive AZITHROMYCIN 250 MG TABS 2 po qd x 1 day, then 1 po qd x 4 days AZITHROMYCIN 250 MG TABS 6468867 AZITHROMYCIN Inactive NYSTATIN-TRIAMCINOLONE 327219-4.1 UNIT/GM-% CREA Apply to area BID NYSTATIN-TRIAMCINOLONE 386188-2.1 UNIT/GM-% CREA 2653686 NYSTATIN-TRIAMCINOLONE Inactive AZITHROMYCIN 250 MG TABS 2 po qd x 1 day, then 1 po qd x 4 days AZITHROMYCIN 250 MG TABS 3657129 AZITHROMYCIN Inactive AZITHROMYCIN 250 MG TABS 2 po qd x 1 day, then 1 po qd x 4 days AZITHROMYCIN 250 MG TABS 4011352 AZITHROMYCIN Inactive AZITHROMYCIN 250 MG TABS 2 po qd x 1 day, then 1 po qd x 4 days AZITHROMYCIN 250 MG TABS 5383737 AZITHROMYCIN Inactive Vital Signs Date Name Value Unit Range Description blood pressure, diastolic - 8462-4 74 mm[Hg] [...] - Coagulation international normalized ratio (INR) 2.5 Lab Report: Prothrombin Time - Coagulation prothrombin time (patient) 18.8 SECS s 11.1-13.4 international normalized ratio (INR) 2.3 1.0-3.5 prothrombin time (patient) 16.0 SECS s [...] ... - Chemistry sodium, serum 142 mmol/L 047-551 3720/12/01 potassium, serum 4.7 mmol/L 3.5-5.2 chloride, serum [...] 142-424 Encounters Code Encounter Date Provider Facility CPT-75644 Level 3 Est. Patient 16:28:11 CDT Piotr Daley [facility] CPT-70318 Level 3 Est. Patient 12:41:58 CHIEF CRUISER Piotr Daley [facility] CPT-34994 Level 3 Est. Patient 09:21:24 CDT Piotr Daley [facility] CPT-67699 Level 3 Est. Patient 09:21:11 CDT Piotr Wilson [facility] CPT-62318 Level 3 Est. Patient 11:16:29 CHIEF CRUISER Piotr Daley [facility] CPT-92084 Level 3 Est. Patient 18:40:19 CHIEF CRUISER Piotr Daley [facility] CPT-61638 Level 3 Est. Patient 19:30:50 CDT Piotr Daley [facility] CPT-18869 Level 3 Est. Patient 22:06:44 CDT Katrina Rinaldi MD PhD [facility] CPT-38715 Level 3 Est. Patient 14:20:00 CDT Piotr Daley [facility] CPT-68030 Level 3 Est. Patient 14:15:22 CHIEF CRUISER Piotr Daley [facility] CPT-07520 Level 3 Est. Patient 20:19:57 CHIEF CRUISER Piotr Daley [facility] CPT-98310 Level 3 Est. Patient 16:44:32 CDT Piotr Daley [facility] CPT-08574 Level 3 Est. Patient 08:48:46 CHIEF CRUISER Piotr Wilson [facility] CPT-01806 Level 3 Est. Patient 21:01:21 CDT Piotr Wilson [facility] Procedures Code Procedure Name Date Entry Date Standard Description CPT-OV Office Visit 15:45:01 CHIEF CRUISER CPT-26645 Abd compl w upright 17:10:25 CDT
--- OUTSIDE RECORDS SUMMARY | 2018-07-18 07:51 | XMS REPORT | Clinical Summary ---
Author Author Admin, Isidra Organization [email or web address] Address Unknown Phone Unavailable Allergies, Adverse Reactions, [...] of lower extremity Coumadin therapy V58.61 Active Alnea Ramey Long-term (current) use of anticoagulants Seborrheic keratosis 702.19 Active Piotr Daley DO Other seborrheic keratosis Bronchitis-Acute 466.0 Inactive Piotr Kaite Edi DO Acute bronchitis Leg pain, right 729.5 Active Piotr Katie Edi DO Pain in limb Right leg pain 729.5 Active Piotr Katie Dei DO Pain in limb Bronchitis-Acute 466.0 Active [...] Coronary atherosclerosis of unspecified type of vessel, nulato or graft Back pain, thoracic region, left [...] times a day as needed ALBUTEROL SULFATE 51220649298 Active Matthew Rangel MD Active PREDNISONE 20 MG TAB 2 tabs daily for 3 days, 1 tab daily for 3 days, 1/2 tab daily for 2 days PREDNISONE 54731354176 No Longer Active Matthew Rangel MD Active TRAMADOL HCL 50 MG TABS 1 po tid with ES Tylenol TRAMADOL HCL 62640773717 No Longer Active Matthew Rangel MD Active GABAPENTIN 300 MG CAPS 1 po q hs for nerve pain GABAPENTIN 87945104200 No Longer Active Matthew Rangel MD Active WARFARIN SODIUM 5 MG TABS 1 tablet daily WARFARIN SODIUM 95744670883 Active Piotr Daley DO Active PREDNISONE 20 MG TAB 2 tablets today, then 1 tablet days 2 through 4 PREDNISONE 54989240229 No Longer Active Piotr Daley DO Active AZITHROMYCIN 250 MG TABS 2 po qd x 1 day, then 1 po qd x 4 days AZITHROMYCIN 26469380770 No Longer Active Piotr Daley DO Active IBUPROFEN 800 MG TABS 1 tab every 8 hours as needed IBUPROFEN 77075354724 No Longer Active Piort Daley DO Active LOMOTIL 2.5-0.025 MG TAB 1 to 2 four times a day as needed for diarrhea 10/13 DIPHENOXYLATE-ATROPINE 32498247577 No Longer Active Piotr Daley DO Active WARFARIN SODIUM 4 MG TABS 1 tab every evening WARFARIN SODIUM 54791401349 No Longer Active Piotr Daley DO Active PREDNISONE 20 MG TAB 1 tablet twice daily for 2 days, then 1 tablet once daily for 2 days PREDNISONE 06249763945 No Longer Active Piotr Daley DO Active PROMETHAZINE HCL 25 MG TABS 1 four times a day as needed for nausea/vomiting PROMETHAZINE HCL 05122534738 No Longer Active Piotr Daley DO Active TUSSIONEX PENNKINETIC ER 10-8 MG/5ML LQCR 5ml po q12hr PRN Cough HYDROCOD POLST-CHLORPHEN POLST 37308356229 No Longer Active Piotr Daley DO Active AZITHROMYCIN 250 MG TABS 2 po qd x 1 day, then 1 po qd x 4 days AZITHROMYCIN 05700010158 No Longer Active Piotr Daley DO Active AZITHROMYCIN 250 MG TABS 2 po qd x 1 day, then 1 po qd x 4 days AZITHROMYCIN 73717934147 No Longer Active Piotr Daley DO Active LISINOPRIL-HYDROCHLOROTHIAZIDE 10-12.5 MG TABS 1 tab by mouth daily LISINOPRIL-HYDROCHLOROTHIAZIDE 17856376791 Active Simi [place] Active LISINOPRIL 10 MG TABS 1/2-1 tab po every other day LISINOPRIL 08276260404 No Longer Active Piotr Daley DO Active VENTOLIN HFA 108 (90 BASE) MCG/ACT AERS 2 puffs four times a day PRN cough ALBUTEROL SULFATE 45676232644 No Longer Active Piotr Daley DO Active NYSTATIN-TRIAMCINOLONE 308942-3.1 UNIT/GM-% CREA Apply to area BID NYSTATIN-TRIAMCINOLONE 30653169037 No Longer Active Alena Chavira APPLICATION SUPPORT ENGINEER Active PHISOHEX 3 % LIQD Use Directed HEXACHLOROPHENE 99384332728 No Longer Active Sandra [place] Active AZITHROMYCIN 250 MG TABS 2 po qd x 1 day, then 1 po qd x 4 days AZITHROMYCIN 36305188086 No Longer Active Katrina Rinaldi MD PhD Active AZITHROMYCIN 250 MG TABS 2 po qd x 1 day, then 1 po qd x 4 days AZITHROMYCIN 66626681720 No Longer Active Piotr Daley DO Active AZITHROMYCIN 500 MG SOLR 1 po q day AZITHROMYCIN 82942702939 No Longer Active Piotr Daley DO Active NYSTATIN-TRIAMCINOLONE 316887-6.1 UNIT/GM-% CREA apply bid 08/19 NYSTATIN-TRIAMCINOLONE 46930336130 No Longer Active Piotr Daley DO Active IBUPROFEN 800 MG TABS 1 po q 8 hours prn pain sparinly IBUPROFEN 70988333404 No Longer Active Piotr Daley DO Active VITAMIN D3 5000 UNIT CAPS 1 po daily CHOLECALCIFEROL 35825611269 Active Piotr Daley DO Active IBUPROFEN 800 MG TABS 1 po q 8 hours prn pain sparinly IBUPROFEN 800 MG TABS 594343 IBUPROFEN Inactive NYSTATIN-TRIAMCINOLONE 810763-8.1 UNIT/GM-% CREA apply bid 08/19 NYSTATIN-TRIAMCINOLONE 490863-8.1 UNIT/GM-% CREA 0546545 NYSTATIN- TRIAMCINOLONE Inactive AZITHROMYCIN 500 MG SOLR 1 po q day AZITHROMYCIN 500 MG SOLR 16018592162 AZITHROMYCIN Inactive VENTOLIN HFA 108 (90 BASE) MCG/ACT AERS 2 puffs four times a day PRN cough VENTOLIN HFA 108 (90 BASE) MCG/ACT AERS ALBUTEROL SULFATE Inactive LISINOPRIL 10 MG TABS 1/2-1 tab po every other day LISINOPRIL 10 MG TABS 327976 LISINOPRIL Inactive TUSSIONEX PENNKINETIC ER 10-8 MG/5ML LQCR 5ml po q12hr PRN Cough TUSSIONEX PENNKINETIC ER 10-8 MG/5ML LQCR HYDROCOD POLST- CHLORPHEN POLST Inactive PROMETHAZINE HCL 25 MG TABS 1 four times a day as needed for nausea/vomiting PROMETHAZINE HCL 25 MG TABS 574441 PROMETHAZINE HCL Inactive PREDNISONE 20 MG TAB 1 tablet twice daily for 2 days, then 1 tablet once daily for 2 days PREDNISONE 20 MG TAB 065826 PREDNISONE Inactive WARFARIN SODIUM 4 MG TABS 1 tab every evening WARFARIN SODIUM 4 MG TABS 185381 WARFARIN SODIUM Inactive LOMOTIL 2.5-0.025 MG TAB 1 to 2 four times a day as needed for diarrhea 10/13 LOMOTIL 2.5-0.025 MG TAB 2803965 DIPHENOXYLATE-ATROPINE Inactive IBUPROFEN 800 MG TABS 1 tab every 8 hours as needed IBUPROFEN 800 MG TABS 480620 IBUPROFEN Inactive PREDNISONE 20 MG TAB 2 tablets today, then 1 tablet days 2 through 4 PREDNISONE 20 MG TAB 570909 PREDNISONE Inactive GABAPENTIN 300 MG CAPS 1 po q hs for nerve pain GABAPENTIN 300 MG CAPS 479931 GABAPENTIN Inactive TRAMADOL HCL 50 MG TABS 1 po tid with ES Tylenol TRAMADOL HCL 50 MG TABS 218021 TRAMADOL HCL Inactive AZITHROMYCIN 250 MG TABS 2 po qd x 1 day, then 1 po qd x 4 days AZITHROMYCIN 250 MG TABS 1088182 AZITHROMYCIN Inactive AZITHROMYCIN 250 MG TABS 2 po qd x 1 day, then 1 po qd x 4 days AZITHROMYCIN 250 MG TABS 0798785 AZITHROMYCIN Inactive NYSTATIN-TRIAMCINOLONE 311779-2.1 UNIT/GM-% CREA Apply to area BID NYSTATIN-TRIAMCINOLONE 782614-5.1 UNIT/GM-% CREA 7758969 NYSTATIN-TRIAMCINOLONE Inactive AZITHROMYCIN 250 MG TABS 2 po qd x 1 day, then 1 po qd x 4 days AZITHROMYCIN 250 MG TABS 0205746 AZITHROMYCIN Inactive AZITHROMYCIN 250 MG TABS 2 po qd x 1 day, then 1 po qd x 4 days AZITHROMYCIN 250 MG TABS 7063794 AZITHROMYCIN Inactive AZITHROMYCIN 250 MG TABS 2 po qd x 1 day, then 1 po qd x 4 days AZITHROMYCIN 250 MG TABS 4324037 AZITHROMYCIN Inactive PREDNISONE 20 MG TAB 2 tabs daily for 3 days, 1 tab daily for 3 days, 1/2 tab daily for 2 days PREDNISONE 20 MG TAB 045325 PREDNISONE Inactive Advance Directives Directive Description Start [...] Panel - Chemistry sodium, serum 141 mmol/L 871-019 2548/01/24 potassium, serum 4.3 mmol/L 3.5-5.2 chloride, serum 103 mmol/L 98-107 carbon dioxide, venous blood 30.7 mmol/L 21.0-32.0 blood glucose 90 mg/dL 65-110 calcium, serum 8.5 mg/dL 8.5-10.1 urea nitrogen, blood 16 mg/dL 7-18 creatinine, serum 1.09 mg/dL 0.55-1.30 Lab Report: Comp. Metabolic Panel - Chemistry sodium, serum 141 mmol/L 631-041 9790/06/28 carbon dioxide, venous blood 31.0 mmol/L 21.0-32.0 [...] 1.0-3.5 Encounters Code Encounter Date Provider Facility CPT-80822 Level 3 Est. Patient 10:48:17 TELEPHONE SWITCHBOARD OPERATOR Matthew Rangel MD [facility] CPT-91168 Level 4 Est. Patient 17:15:07 TELEPHONE SWITCHBOARD OPERATOR Piotr Daley [facility] CPT-18800 Level 3 Est. Patient 12:46:13 TELEPHONE SWITCHBOARD OPERATOR Piotr Daley [facility] CPT-41313 Level 3 Est. Patient 15:14:31 TELEPHONE SWITCHBOARD OPERATOR Piotr Daley [facility] CPT-01199 Level 3 Est. Patient 09:20:13 TELEPHONE SWITCHBOARD OPERATOR Piotr Daley [facility] CPT-98296 Level 3 Est. Patient 09:49:40 CDT Piotr Wilson [facility] CPT-01180 Level 3 Est. Patient 16:28:11 CDT Piotr Daley [facility] CPT-00525 Level 3 Est. Patient 12:41:58 TELEPHONE SWITCHBOARD OPERATOR Piotr Daley [facility] CPT-91458 Level 3 Est. Patient 09:21:24 CDT Piotr Daley [facility] CPT-78838 Level 3 Est. Patient 09:21:11 CDT Piotr Wilson [facility] CPT-79324 Level 3 Est. Patient 11:16:29 TELEPHONE SWITCHBOARD OPERATOR Piotr Daley [facility] CPT-81777 Level 3 Est. Patient 18:40:19 TELEPHONE SWITCHBOARD OPERATOR Piotr Daley [facility] CPT-58813 Level 3 Est. Patient 19:30:50 CDT Piotr Wilson [facility] CPT-44269 Level 3 Est. Patient 22:06:44 CDT Katrina Rinaldi MD [facility] CPT-55629 Level 3 Est. Patient 14:20:00 CDT Piotr Daley [facility] CPT-67618 Level 3 Est. Patient 14:15:22 TELEPHONE SWITCHBOARD OPERATOR Piotr Daley [facility] CPT-70841 Level 3 Est. Patient 20:19:57 TELEPHONE SWITCHBOARD OPERATOR Piotr Daley [facility] CPT-09502 Level 3 Est. Patient 16:44:32 CDT Piotr Daley [facility] CPT-07388 Level 3 Est. Patient 08:48:46 TELEPHONE SWITCHBOARD OPERATOR Piotr Daley [facility] CPT-73306 Level 3 Est. Patient 21:01:21 CDT Piotr Wilson [facility] Procedures Code Procedure Name Date Entry Date Standard Description CPT-73236 BMP - LAB USE ONLY 17:19:11 TELEPHONE SWITCHBOARD OPERATOR CPT-67620 PT/INR - LAB USE ONLY 17:19:10 TELEPHONE SWITCHBOARD OPERATOR CPT-79171 Venipuncture Draw Fee 17:19:10 TELEPHONE SWITCHBOARD OPERATOR CPT-29385 PT/INR - LAB USE ONLY 08:12:25 TELEPHONE SWITCHBOARD OPERATOR CPT-04832 Venipuncture Draw Fee 08:12:24 TELEPHONE SWITCHBOARD OPERATOR CPT-33927 Venipuncture Draw Fee 11:31:07 TELEPHONE SWITCHBOARD OPERATOR CPT-06625 TPSA - LAB USE ONLY 11:31:07 TELEPHONE SWITCHBOARD OPERATOR CPT-21522 PT/INR - LAB USE ONLY 11:31:07 TELEPHONE SWITCHBOARD OPERATOR CPT-G0439 [facility] Annual Wellness Exam 09:59:29 TELEPHONE SWITCHBOARD OPERATOR CPT-11229 Creatinine - LAB USE ONLY 14:37:55 TELEPHONE SWITCHBOARD OPERATOR CPT-20960 PT/INR - LAB USE ONLY 14:37:55 TELEPHONE SWITCHBOARD OPERATOR CPT-54040 Venipuncture Draw Fee 14:37:55 TELEPHONE SWITCHBOARD OPERATOR CPT-54078 LS spine comp w obliques - XRAY USE ONLY 12:59:25 TELEPHONE SWITCHBOARD OPERATOR CPT-18887 PT/INR - LAB USE ONLY 13:49:20 CDT CPT-59535 Venipuncture Draw Fee 13:49:19 CDT CPT-86111 PT/INR - LAB USE ONLY 15:48:49 CDT CPT-87875 Venipuncture Draw Fee 15:48:49 CDT CPT-23471 Venipuncture Draw Fee 11:31:59 CDT CPT-58210 PT/INR - LAB USE ONLY 11:31:59 CDT CPT-53829 Venipuncture Draw Fee 13:29:15 CDT CPT-45947 Thoracolumbar AP/Lat 15:19:19 TELEPHONE SWITCHBOARD OPERATOR CPT-G0438 Initial Annual Wellness Exam 12:18:54 TELEPHONE SWITCHBOARD OPERATOR CPT-84391 Knee 3V 09:57:38 CDT CPT-OV Office Visit 15:45:01 TELEPHONE SWITCHBOARD OPERATOR CPT-82024 Abd compl w upright 17:10:25 CDT
--- OUTSIDE RECORDS SUMMARY | 2018-07-18 07:52 | XMS REPORT | Clinical Summary ---
Author Author Admin, [employer] Organization [employer] Address Unknown Phone Unavailable Allergies, Adverse Reactions, [...] essential hypertension FLANK PAIN, RIGHT 789.09 Resolved Ktarina Rinaldi MD PhD Abdominal pain, other specified [...] neoplasm of prostate V10.46 Active Alina Meyers LINUX UNIX ENGINEER Personal history of malignant neoplasm of prostate Coronary artery disease 414.00 Active Alina Meyers APRN Coronary atherosclerosis of unspecified type of vessel, [place] or graft Back pain, thoracic region, left [...] times a day as needed ALBUTEROL SULFATE 12838606518 Active Matthew Rangel MD Active PREDNISONE 20 MG TAB 2 tabs daily for 3 days, 1 tab daily for 3 days, 1/2 tab daily for 2 days PREDNISONE 70232576274 No Longer Active Matthew Rangel MD Active TRAMADOL HCL 50 MG TABS 1 po tid with ES Tylenol TRAMADOL HCL 77505536875 No Longer Active Matthew Rangel MD Active GABAPENTIN 300 MG CAPS 1 po q hs for nerve pain GABAPENTIN 36400636345 No Longer Active Matthew Rangel MD Active WARFARIN SODIUM 5 MG TABS 1 tablet daily WARFARIN SODIUM 74197391126 Active Piotr Daley DO Active PREDNISONE 20 MG TAB 2 tablets today, then 1 tablet days 2 through 4 PREDNISONE 39120595029 No Longer Active Piotr Daley DO Active AZITHROMYCIN 250 MG TABS 2 po qd x 1 day, then 1 po qd x 4 days AZITHROMYCIN 19600846905 No Longer Active Piotr Daley DO Active IBUPROFEN 800 MG TABS 1 tab every 8 hours as needed IBUPROFEN 15722724139 No Longer Active Piotr Daley DO Active LOMOTIL 2.5-0.025 MG TAB 1 to 2 four times a day as needed for diarrhea 10/13 DIPHENOXYLATE-ATROPINE 76911915855 No Longer Active Piotr Daley DO Active WARFARIN SODIUM 4 MG TABS 1 tab every evening WARFARIN SODIUM 07816587283 No Longer Active Piotr Daley DO Active PREDNISONE 20 MG TAB 1 tablet twice daily for 2 days, then 1 tablet once daily for 2 days PREDNISONE 33441797850 No Longer Active Piotr Daley DO Active PROMETHAZINE HCL 25 MG TABS 1 four times a day as needed for nausea/vomiting PROMETHAZINE HCL 69893456121 No Longer Active Piotr Daley DO Active TUSSIONEX PENNKINETIC ER 10-8 MG/5ML LQCR 5ml po q12hr PRN Cough HYDROCOD POLST-CHLORPHEN POLST 04305503874 No Longer Active Piotr Daley DO Active AZITHROMYCIN 250 MG TABS 2 po qd x 1 day, then 1 po qd x 4 days AZITHROMYCIN 36411396506 No Longer Active Piotr Daley DO Active AZITHROMYCIN 250 MG TABS 2 po qd x 1 day, then 1 po qd x 4 days AZITHROMYCIN 81085629487 No Longer Active Piotr Daley DO Active LISINOPRIL-HYDROCHLOROTHIAZIDE 10-12.5 MG TABS 1 tab by mouth daily LISINOPRIL-HYDROCHLOROTHIAZIDE 03478701371 Active Catalina Freitas Active LISINOPRIL 10 MG TABS 1/2-1 tab po every other day LISINOPRIL 50053717792 No Longer Active Piotr Daley DO Active VENTOLIN HFA 108 (90 BASE) MCG/ACT AERS 2 puffs four times a day PRN cough ALBUTEROL SULFATE 33346980116 No Longer Active Piotr Daley DO Active NYSTATIN-TRIAMCINOLONE 280836-0.1 UNIT/GM-% CREA Apply to area BID NYSTATIN-TRIAMCINOLONE 93982300096 No Longer Active Alena Chavira ARCHITECT INTERN Active PHISOHEX 3 % LIQD Use Directed HEXACHLOROPHENE 29888386102 No Longer Active [place] Active AZITHROMYCIN 250 MG TABS 2 po qd x 1 day, then 1 po qd x 4 days AZITHROMYCIN 31465975365 No Longer Active Katrina Rinaldi MD PhD Active AZITHROMYCIN 250 MG TABS 2 po qd x 1 day, then 1 po qd x 4 days AZITHROMYCIN 91114577410 No Longer Active Piotr Daley DO Active AZITHROMYCIN 500 MG SOLR 1 po q day AZITHROMYCIN 01344518737 No Longer Active Piotr Daley DO Active NYSTATIN-TRIAMCINOLONE 668750-1.1 UNIT/GM-% CREA apply bid 08/19 NYSTATIN-TRIAMCINOLONE 25817907105 No Longer Active Piotr Daley DO Active IBUPROFEN 800 MG TABS 1 po q 8 hours prn pain sparinly IBUPROFEN 14833633356 No Longer Active Piotr Daley DO Active VITAMIN D3 5000 UNIT CAPS 1 po daily CHOLECALCIFEROL 77213404482 Active Piotr Daley DO Active IBUPROFEN 800 MG TABS 1 po q 8 hours prn pain sparinly IBUPROFEN 800 MG TABS 623192 IBUPROFEN Inactive NYSTATIN-TRIAMCINOLONE 085217-3.1 UNIT/GM-% CREA apply bid 08/19 NYSTATIN-TRIAMCINOLONE 992985-5.1 UNIT/GM-% CREA 3182835 NYSTATIN- TRIAMCINOLONE Inactive AZITHROMYCIN 500 MG SOLR 1 po q day AZITHROMYCIN 500 MG SOLR 33312464778 AZITHROMYCIN Inactive VENTOLIN HFA 108 (90 BASE) MCG/ACT AERS 2 puffs four times a day PRN cough VENTOLIN HFA 108 (90 BASE) MCG/ACT AERS ALBUTEROL SULFATE Inactive LISINOPRIL 10 MG TABS 1/2-1 tab po every other day LISINOPRIL 10 MG TABS 297443 LISINOPRIL Inactive TUSSIONEX PENNKINETIC ER 10-8 MG/5ML LQCR 5ml po q12hr PRN Cough TUSSIONEX PENNKINETIC ER 10-8 MG/5ML LQCR HYDROCOD POLST- CHLORPHEN POLST Inactive PROMETHAZINE HCL 25 MG TABS 1 four times a day as needed for nausea/vomiting PROMETHAZINE HCL 25 MG TABS 551654 PROMETHAZINE HCL Inactive PREDNISONE 20 MG TAB 1 tablet twice daily for 2 days, then 1 tablet once daily for 2 days PREDNISONE 20 MG TAB 326297 PREDNISONE Inactive WARFARIN SODIUM 4 MG TABS 1 tab every evening WARFARIN SODIUM 4 MG TABS 242172 WARFARIN SODIUM Inactive LOMOTIL 2.5-0.025 MG TAB 1 to 2 four times a day as needed for diarrhea 10/13 LOMOTIL 2.5-0.025 MG TAB 9393143 DIPHENOXYLATE-ATROPINE Inactive IBUPROFEN 800 MG TABS 1 tab every 8 hours as needed IBUPROFEN 800 MG TABS 106498 IBUPROFEN Inactive PREDNISONE 20 MG TAB 2 tablets today, then 1 tablet days 2 through 4 PREDNISONE 20 MG TAB 859127 PREDNISONE Inactive GABAPENTIN 300 MG CAPS 1 po q hs for nerve pain GABAPENTIN 300 MG CAPS 632343 GABAPENTIN Inactive TRAMADOL HCL 50 MG TABS 1 po tid with ES Tylenol TRAMADOL HCL 50 MG TABS 251291 TRAMADOL HCL Inactive AZITHROMYCIN 250 MG TABS 2 po qd x 1 day, then 1 po qd x 4 days AZITHROMYCIN 250 MG TABS 5904338 AZITHROMYCIN Inactive AZITHROMYCIN 250 MG TABS 2 po qd x 1 day, then 1 po qd x 4 days AZITHROMYCIN 250 MG TABS 1992126 AZITHROMYCIN Inactive NYSTATIN-TRIAMCINOLONE 323804-4.1 UNIT/GM-% CREA Apply to area BID NYSTATIN-TRIAMCINOLONE 552016-0.1 UNIT/GM-% CREA 6383439 NYSTATIN-TRIAMCINOLONE Inactive AZITHROMYCIN 250 MG TABS 2 po qd x 1 day, then 1 po qd x 4 days AZITHROMYCIN 250 MG TABS 3609119 AZITHROMYCIN Inactive AZITHROMYCIN 250 MG TABS 2 po qd x 1 day, then 1 po qd x 4 days AZITHROMYCIN 250 MG TABS 3266788 AZITHROMYCIN Inactive AZITHROMYCIN 250 MG TABS 2 po qd x 1 day, then 1 po qd x 4 days AZITHROMYCIN 250 MG TABS 6757009 AZITHROMYCIN Inactive PREDNISONE 20 MG TAB 2 tabs daily for 3 days, 1 tab daily for 3 days, 1/2 tab daily for 2 days PREDNISONE 20 MG TAB 349392 PREDNISONE Inactive Advance Directives Directive Description Start [...] Lab Report: Basic Metabolic Panel - Chemistry potassium, serum 4.3 mmol/L 3.5-5.2 chloride, serum 103 mmol/L 98-107 carbon dioxide, venous blood 30.7 mmol/L 21.0-32.0 blood glucose 90 mg/dL 65-110 calcium, serum 8.5 mg/dL 8.5-10.1 urea nitrogen, blood 16 mg/dL 7-18 creatinine, serum 1.09 mg/dL 0.55-1.30 sodium, serum 141 mmol/L 136-145 Lab Report: Comp. Metabolic Panel - Chemistry sodium, serum 141 mmol/L 453-888 6255/06/28 carbon dioxide, venous blood 31.0 mmol/L 21.0-32.0 [...] ratio (INR) 3.3 1.0-3.5 prothrombin time (patient) 23.8 SECS s 11.1-13.4 international normalized ratio (INR) 3.2 1.0-3.5 prothrombin time (patient) 23.1 SECS s 11.1-13.4 international normalized ratio (INR) 3.0 1.0-3.5 prothrombin time (patient) 27.8 SECS s 11.1-13.4 international normalized ratio (INR) 4.2 1.0-3.5 prothrombin time (patient) 22.8 SECS s 11.1-13.4 international normalized ratio (INR) 3.0 1.0-3.5 international normalized ratio (INR) 2.5 1.0-3.5 prothrombin time (patient) 20.8 SECS s 11.1-13.4 international normalized ratio (INR) 2.2 1.0-3.5 prothrombin time (patient) 18.1 SECS s 11.1-13.4 prothrombin time (patient) 19.8 SECS s 11.1-13.4 international normalized ratio (INR) 2.3 1.0-3.5 international normalized ratio (INR) 1.7 1.0-3.5 prothrombin time (patient) 15.4 SECS s 11.1-13.4 Encounters Code Encounter Date Provider Facility CPT-60430 Level 3 Est. Patient 10:48:17 VAMP MAKER Matthew Rangel MD [facility] CPT-48643 Level 4 Est. Patient 17:15:07 VAMP MAKER Piotr Daley [facility] CPT-59327 Level 3 Est. Patient 12:46:13 VAMP MAKER Piotr Daley [facility] CPT-00255 Level 3 Est. Patient 15:14:31 VAMP MAKER Piotr Daley [facility] CPT-33803 Level 3 Est. Patient 09:20:13 VAMP MAKER Piotr Daley [facility] CPT-94812 Level 3 Est. Patient 09:49:40 CDT Piotr Daley [facility] CPT-15399 Level 3 Est. Patient 16:28:11 CDT Piotr Daley [facility] CPT-19354 Level 3 Est. Patient 12:41:58 VAMP MAKER Piotr Daley [facility] CPT-13186 Level 3 Est. Patient 09:21:24 CDT Piotr Daley [facility] CPT-12461 Level 3 Est. Patient 09:21:11 CDT Piotr Daley [facility] CPT-78012 Level 3 Est. Patient 11:16:29 VAMP MAKER Piotr Daley [facility] CPT-32568 Level 3 Est. Patient 18:40:19 VAMP MAKER Piotr Daley [facility] CPT-92812 Level 3 Est. Patient 19:30:50 CDT Piotr Daley [facility] CPT-24027 Level 3 Est. Patient 22:06:44 CDT Katrina Rinaldi MD PhD [facility] CPT-81754 Level 3 Est. Patient 14:20:00 CDT Piotr Daley [facility] CPT-59914 Level 3 Est. Patient 14:15:22 VAMP MAKER Piotr Daley [facility] CPT-11467 Level 3 Est. Patient 20:19:57 VAMP MAKER Piotr Daley [facility] CPT-91288 Level 3 Est. Patient 16:44:32 CDT Piotr Daley [facility] CPT-50888 Level 3 Est. Patient 08:48:46 VAMP MAKER Piotr Daley [facility] CPT-63043 Level 3 Est. Patient 21:01:21 CDT Piotr Daley [facility] Procedures Code Procedure Name Date Entry Date Standard Description CPT-17814 BMP - LAB USE ONLY 17:19:11 VAMP MAKER CPT-99106 PT/INR - LAB USE ONLY 17:19:10 VAMP MAKER CPT-72536 Venipuncture Draw Fee 17:19:10 VAMP MAKER CPT-63821 PT/INR - LAB USE ONLY 08:12:25 VAMP MAKER CPT-96405 Venipuncture Draw Fee 08:12:24 VAMP MAKER CPT-18594 Venipuncture Draw Fee 11:31:07 VAMP MAKER CPT-04718 TPSA - LAB USE ONLY 11:31:07 VAMP MAKER CPT-47934 PT/INR - LAB USE ONLY 11:31:07 VAMP MAKER CPT-G0439 [facility] Annual Wellness Exam 09:59:29 VAMP MAKER CPT-95770 Creatinine - LAB USE ONLY 14:37:55 VAMP MAKER CPT-41376 PT/INR - LAB USE ONLY 14:37:55 VAMP MAKER CPT-46259 Venipuncture Draw Fee 14:37:55 VAMP MAKER CPT-41442 LS spine comp w obliques - XRAY USE ONLY 12:59:25 VAMP MAKER CPT-79435 PT/INR - LAB USE ONLY 13:49:20 CDT CPT-05876 Venipuncture Draw Fee 13:49:19 CDT CPT-98493 PT/INR - LAB USE ONLY 15:48:49 CDT CPT-40945 Venipuncture Draw Fee 15:48:49 CDT CPT-98364 Venipuncture Draw Fee 11:31:59 CDT CPT-33588 PT/INR - LAB USE ONLY 11:31:59 CDT CPT-59926 Venipuncture Draw Fee 13:29:15 CDT CPT-41092 Thoracolumbar AP/Lat 15:19:19 VAMP MAKER CPT-G0438 Initial Annual Wellness Exam 12:18:54 VAMP MAKER CPT-25740 Knee 3V 09:57:38 CDT CPT-OV Office Visit 15:45:01 VAMP MAKER CPT-64738 Abd compl w upright 17:10:25 CDT
--- OUTSIDE RECORDS SUMMARY | 2018-07-18 07:52 | XMS REPORT | Clinical Summary ---
Author Author Admin, E Organization [employer] Address Unknown Phone Unavailable Allergies, Adverse Reactions, [...] leg Health maintenance exam V70.0 Active Adriane Rjoo LPN Routine general medical examination at a health care facility Actinic keratoses 702.0 Active Piotr Katie Edi DO Actinic keratosis Personal history of malignant neoplasm of prostate V10.46 Active Alina Meyers APRN Personal history of malignant neoplasm of prostate Coronary artery disease 414.00 Active Alina Meyers APRN Coronary atherosclerosis of unspecified type of vessel, [place] or graft Back pain, thoracic region, left [...] MG TABS 1 tablet daily WARFARIN SODIUM 51719670929 Active Emelyn Goode RPT,RMA Active TRAMADOL HCL 50 MG TABS 1 po tid with ES Tylenol TRAMADOL HCL 87782812115 Active Piotr Daley DO Active PREDNISONE 20 MG TAB 2 tablets today, then 1 tablet days 2 through 4 PREDNISONE 87451622945 No Longer Active Piotr Daley DO Active AZITHROMYCIN 250 MG TABS 2 po qd x 1 day, then 1 po qd x 4 days AZITHROMYCIN 01041821439 No Longer Active Piotr Daley DO Active IBUPROFEN 800 MG TABS 1 tab every 8 hours as needed IBUPROFEN 71724399399 No Longer Active Piotr Daley DO Active LOMOTIL 2.5-0.025 MG TAB 1 to 2 four times a day as needed for diarrhea 10/13 DIPHENOXYLATE-ATROPINE 80562365448 No Longer Active Pitor Daley DO Active WARFARIN SODIUM 4 MG TABS 1 tab every evening WARFARIN SODIUM 15875997189 No Longer Active Piotr Daley DO Active PREDNISONE 20 MG TAB 1 tablet twice daily for 2 days, then 1 tablet once daily for 2 days PREDNISONE 70001545798 No Longer Active Piotr Daley DO Active PROMETHAZINE HCL 25 MG TABS 1 four times a day as needed for nausea/vomiting PROMETHAZINE HCL 42099528475 No Longer Active Piotr Daley DO Active TUSSIONEX PENNKINETIC ER 10-8 MG/5ML LQCR 5ml po q12hr PRN Cough HYDROCOD POLST-CHLORPHEN POLST 64399946501 No Longer Active Piotr W Edi DO Active AZITHROMYCIN 250 MG TABS 2 po qd x 1 day, then 1 po qd x 4 days AZITHROMYCIN 36072821873 No Longer Active Piotr Daley DO Active AZITHROMYCIN 250 MG TABS 2 po qd x 1 day, then 1 po qd x 4 days AZITHROMYCIN 92855253182 No Longer Active Piotr Daley DO Active LISINOPRIL-HYDROCHLOROTHIAZIDE 10-12.5 MG TABS 1 tab by mouth daily LISINOPRIL-HYDROCHLOROTHIAZIDE 81198351368 Active Hilary Ma MA Active LISINOPRIL 10 MG TABS 1/2-1 tab po every other day LISINOPRIL 49468636253 No Longer Active Piotr Daley DO Active VENTOLIN HFA 108 (90 BASE) MCG/ACT AERS 2 puffs four times a day PRN cough ALBUTEROL SULFATE 72857194362 No Longer Active Piotr Daley DO Active NYSTATIN-TRIAMCINOLONE 627717-9.1 UNIT/GM-% CREA Apply to area BID NYSTATIN-TRIAMCINOLONE 15286191326 No Longer Active Alena Oswaldum PLASTICS REPAIRER Active PHISOHEX 3 % LIQD Use Directed HEXACHLOROPHENE 63839081723 No Longer Active Sandra [place] Active AZITHROMYCIN 250 MG TABS 2 po qd x 1 day, then 1 po qd x 4 days AZITHROMYCIN 19318566200 No Longer Active Katrina Rinaldi MD PhD Active AZITHROMYCIN 250 MG TABS 2 po qd x 1 day, then 1 po qd x 4 days AZITHROMYCIN 44293682790 No Longer Active Piotr Daley DO Active AZITHROMYCIN 500 MG SOLR 1 po q day AZITHROMYCIN 06358441936 No Longer Active Piotr Daley DO Active NYSTATIN-TRIAMCINOLONE 890251-0.1 UNIT/GM-% CREA apply bid 08/19 NYSTATIN-TRIAMCINOLONE 38558872074 No Longer Active Piotr Daley DO Active IBUPROFEN 800 MG TABS 1 po q 8 hours prn pain sparinly IBUPROFEN 72607452105 No Longer Active Piotr Daley DO Active VITAMIN D3 5000 UNIT CAPS 1 po daily CHOLECALCIFEROL 57289739339 Active Piotr Daley DO Active IBUPROFEN 800 MG TABS 1 po q 8 hours prn pain sparinly IBUPROFEN 800 MG TABS 733180 IBUPROFEN Inactive NYSTATIN-TRIAMCINOLONE 901164-6.1 UNIT/GM-% CREA apply bid 08/19 NYSTATIN-TRIAMCINOLONE 161530-2.1 UNIT/GM-% CREA 3390882 NYSTATIN- TRIAMCINOLONE Inactive AZITHROMYCIN 500 MG SOLR 1 po q day AZITHROMYCIN 500 MG SOLR 29231238792 AZITHROMYCIN Inactive VENTOLIN HFA 108 (90 BASE) MCG/ACT AERS 2 puffs four times a day PRN cough VENTOLIN HFA 108 (90 BASE) MCG/ACT AERS ALBUTEROL SULFATE Inactive LISINOPRIL 10 MG TABS 1/2-1 tab po every other day LISINOPRIL 10 MG TABS 907909 LISINOPRIL Inactive TUSSIONEX PENNKINETIC ER 10-8 MG/5ML LQCR 5ml po q12hr PRN Cough TUSSIONEX PENNKINETIC ER 10-8 MG/5ML LQCR HYDROCOD POLST- CHLORPHEN POLST Inactive PROMETHAZINE HCL 25 MG TABS 1 four times a day as needed for nausea/vomiting PROMETHAZINE HCL 25 MG TABS 896161 PROMETHAZINE HCL Inactive PREDNISONE 20 MG TAB 1 tablet twice daily for 2 days, then 1 tablet once daily for 2 days PREDNISONE 20 MG TAB 663401 PREDNISONE Inactive WARFARIN SODIUM 4 MG TABS 1 tab every evening WARFARIN SODIUM 4 MG TABS 754502 WARFARIN SODIUM Inactive LOMOTIL 2.5-0.025 MG TAB 1 to 2 four times a day as needed for diarrhea 10/13 LOMOTIL 2.5-0.025 MG TAB 4338952 DIPHENOXYLATE-ATROPINE Inactive IBUPROFEN 800 MG TABS 1 tab every 8 hours as needed IBUPROFEN 800 MG TABS 753881 IBUPROFEN Inactive PREDNISONE 20 MG TAB 2 tablets today, then 1 tablet days 2 through 4 PREDNISONE 20 MG TAB 287026 PREDNISONE Inactive AZITHROMYCIN 250 MG TABS 2 po qd x 1 day, then 1 po qd x 4 days AZITHROMYCIN 250 MG TABS 0827445 AZITHROMYCIN Inactive AZITHROMYCIN 250 MG TABS 2 po qd x 1 day, then 1 po qd x 4 days AZITHROMYCIN 250 MG TABS 0318775 AZITHROMYCIN Inactive NYSTATIN-TRIAMCINOLONE 494150-1.1 UNIT/GM-% CREA Apply to area BID NYSTATIN-TRIAMCINOLONE 841853-9.1 UNIT/GM-% CREA 3722688 NYSTATIN-TRIAMCINOLONE Inactive AZITHROMYCIN 250 MG TABS 2 po qd x 1 day, then 1 po qd x 4 days AZITHROMYCIN 250 MG TABS 9026069 AZITHROMYCIN Inactive AZITHROMYCIN 250 MG TABS 2 po qd x 1 day, then 1 po qd x 4 days AZITHROMYCIN 250 MG TABS 9587825 AZITHROMYCIN Inactive AZITHROMYCIN 250 MG TABS 2 po qd x 1 day, then 1 po qd x 4 days AZITHROMYCIN 250 MG TABS 2640482 AZITHROMYCIN Inactive Advance Directives Directive Description Start [...] Panel - Chemistry sodium, serum 141 mmol/L 415-354 2385/06/28 carbon dioxide, venous blood 31.0 mmol/L 21.0-32.0 [...] 5.0-8.5 Encounters Code Encounter Date Provider Facility CPT-31142 Level 3 Est. Patient 15:14:31 CISCO CONSULTANT Piotr Daley [facility] CPT-95502 Level 3 Est. Patient 09:20:13 CISCO CONSULTANT Piotr Daley [facility] CPT-95861 Level 3 Est. Patient 09:49:40 CDT Piotr W [facility] CPT-77020 Level 3 Est. Patient 16:28:11 CDT Piotr Daley [facility] CPT-03628 Level 3 Est. Patient 12:41:58 CISCO CONSULTANT Piotr Daley [facility] CPT-65659 Level 3 Est. Patient 09:21:24 CDT Piotr Daley [facility] CPT-26948 Level 3 Est. Patient 09:21:11 CDT Piotr Daley [facility] CPT-28016 Level 3 Est. Patient 11:16:29 CISCO CONSULTANT Piotr Daley [facility] CPT-36495 Level 3 Est. Patient 18:40:19 CISCO CONSULTANT Piotr Daley [facility] CPT-68666 Level 3 Est. Patient 19:30:50 CDT Piotr Daley [facility] CPT-25627 Level 3 Est. Patient 22:06:44 CDT Katrina Rinaldi MD PhD [facility] CPT-69647 Level 3 Est. Patient 14:20:00 CDT Piotr Daley [facility] CPT-43156 Level 3 Est. Patient 14:15:22 CISCO CONSULTANT Piotr Daley [facility] CPT-61428 Level 3 Est. Patient 20:19:57 CISCO CONSULTANT Piotr Daley [facility] CPT-30871 Level 3 Est. Patient 16:44:32 CDT Piotr Katie Daley [facility] CPT-20544 Level 3 Est. Patient 08:48:46 CISCO CONSULTANT Piotr Wilson Edi [facility] CPT-06273 Level 3 Est. Patient 21:01:21 CDT Piotr Katie Edi [facility] Procedures Code Procedure Name Date Entry Date Standard Description CPT-38475 Venipuncture Draw Fee 11:31:59 CDT CPT-82006 PT/INR - LAB USE ONLY 11:31:59 CDT CPT-55002 Venipuncture Draw Fee 13:29:15 CDT CPT-30500 Thoracolumbar AP/Lat 15:19:19 CISCO CONSULTANT CPT-G0438 Initial Annual Wellness Exam 12:18:54 CISCO CONSULTANT CPT-32590 Knee 3V 09:57:38 CDT CPT-OV Office Visit 15:45:01 CISCO CONSULTANT CPT-30727 Abd compl w upright 17:10:25 CDT
--- OUTSIDE RECORDS SUMMARY | 2018-07-18 07:53 | XMS REPORT | Clinical Summary ---
Author Author Admin, [facility] [employer] Address Unknown Phone Unavailable Allergies, Adverse Reactions, [...] Coronary atherosclerosis of unspecified type of vessel, [place] or graft Back pain, thoracic region, left [...] pruritic disorder Wellness exam V70.0 Active Emelyn Russel Norris Routine general medical examination at a health care facility Bronchitis-Acute 466.0 Active Piotr Daley DO Acute bronchitis Dyspnea 786.09 Active Piotr Daley DO Other dyspnea and respiratory abnormality FLANK PAIN, RIGHT ICD-789.09 Inactive Katrina Rinaldi MD PhD HEALTH MAINTENANCE EXAM ICD-V70.0 Inactive Katrina Rinaldi MD PhD BRONCHITIS-ACUTE ICD-466.0 Inactive Piotr Daley DO SCREENING, COLON CANCER ICD-V76.51 Inactive Katrina Rinaldi MD PhD BRONCHITIS-ACUTE ICD-466.0 Inactive Piotr Daley DO DEEP VENOUS THROMBOPHLEBITIS, LEG, 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 Inactive Sirisha Chen DIRECTOR OF TESTING DEEP VENOUS THROMBOPHLEBITIS, LEG, 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 Inactive Sirisha Chen DIRECTOR OF TESTING Seborrheic keratosis ICD-702.19 Inactive Sirisha Chen DIRECTOR OF TESTING Bronchitis-Acute ICD-466.0 Inactive Piotr Daley DO Leg pain, right ICD-729.5 Inactive Sirisha Chen DIRECTOR OF TESTING Right leg pain ICD-729.5 Inactive Sirisha Chen DIRECTOR OF TESTING Bronchitis-Acute ICD-466.0 Inactive Sirisha Chen DIRECTOR OF TESTING Knee pain, left ICD-719.46 Inactive Sirisha Chen DIRECTOR OF TESTING Actinic keratoses ICD-702.0 Inactive Sirisha Chen DIRECTOR OF TESTING Back pain, thoracic region, left ICD-724.1 Inactive Piotr Daley DO Thoracic back pain ICD-724.5 Inactive Sirisha Chen DIRECTOR OF TESTING Back pain lumbar ICD-724.2 Inactive Sirisha Chen DIRECTOR OF TESTING Insect bite ICD-919.4 Inactive Sirisha Chen DIRECTOR OF TESTING Pruritus ICD-698.9 Inactive Sirisha Chen DIRECTOR OF TESTING 04/09 Medication List Medication Instructions Start Date Stop Date Generic Name NDC Status Provider Patient Instruction TESSALON PERLES 100 MG ORAL CAPSULE 1-2 tablet by mouth 3 times daily 04/16 BENZONATATE 58325922292 Active Piotr Daley DO Active PREDNISONE 10 MG ORAL TABLET 1 tablet by mouth daily PREDNISONE 22938223164 Active Piotr Daley DO Active PREDNISONE 20 MG ORAL TABLET two tabs by mouth today, then one tab by mouth days two and three PREDNISONE 35372407183 No Longer Active Piotr Daley DO Active CYCLOBENZAPRINE HCL 10 MG ORAL TABLET 1 tablet by mouth three times daily as needed for muscle spasm/pain CYCLOBENZAPRINE HCL 77374368463 Active Piotr Daley DO Active ZITHROMAX 250 MG ORAL TABLET Take two (2 ) tablets day one, then one (1) tablet a day for four (4) more days AZITHROMYCIN 78642373121 No Longer Active Piotr Daley DO Active PROAIR HFA 108 (90 BASE) MCG/ACT INHALATION AEROSOL SOLUTION 1-2 puffs four times a day as needed ALBUTEROL SULFATE 05569940273 No Longer Active Emelyn Norris Active DOXYCYCLINE HYCLATE 100 MG ORAL CAPSULE 1 cap by mouth BID x10 days DOXYCYCLINE HYCLATE 79730314744 No Longer Active Nella Harris APRN Active WARFARIN SODIUM 5 MG ORAL TABLET 1 tablet daily M-S, 1/2 tab on Heart WARFARIN SODIUM 76401829890 Active Piotr Daley DO Active PREDNISONE 20 MG ORAL TABLET 2 tabs daily for 3 days, 1 tab daily for 3 days, 1/2 tab daily for 2 days PREDNISONE 18010509745 No Longer Active Matthew Rangel MD Active TRAMADOL HCL 50 MG ORAL TABLET 1 po tid with ES Tylenol TRAMADOL HCL 67410147095 No Longer Active Matthew Rangel MD Active GABAPENTIN 300 MG ORAL CAPSULE 1 po q hs for nerve pain GABAPENTIN 81569472173 No Longer Active Matthew Rangel MD Active PREDNISONE 20 MG ORAL TABLET 2 tablets today, then 1 tablet days 2 through 4 PREDNISONE 78577118292 No Longer Active Piotr Daley DO Active AZITHROMYCIN 250 MG ORAL TABLET 2 po qd x 1 day, then 1 po qd x 4 days 07/12 AZITHROMYCIN 97771647452 No Longer Active Piotr Daley DO Active IBUPROFEN 800 MG ORAL TABLET 1 tab every 8 hours as needed 07/12 IBUPROFEN 37942155683 No Longer Active Piotr Daley DO Active LOMOTIL 2.5-0.025 MG ORAL TABLET 1 to 2 four times a day as needed for diarrhea DIPHENOXYLATE-ATROPINE 83556320473 No Longer Active Piotr Daley DO Active WARFARIN SODIUM 4 MG ORAL TABLET 1 tab every evening WARFARIN SODIUM 75238107837 No Longer Active Piotr Daley DO Active PREDNISONE 20 MG ORAL TABLET 1 tablet twice daily for 2 days, then 1 tablet once daily for 2 days PREDNISONE 94824982704 No Longer Active Piotr Daley DO Active PROMETHAZINE HCL 25 MG ORAL TABLET 1 four times a day as needed for nausea/ vomiting PROMETHAZINE HCL 21869895194 No Longer Active Piotr Dalye DO Active TUSSIONEX PENNKINETIC ER 10-8 MG/5ML ORAL SUSPENSION EXTENDED RELEASE 5ml po q12hr PRN Cough HYDROCOD POLST-CHLORPHEN POLST 26291202730 No Longer Active Piotr Daley DO Active AZITHROMYCIN 250 MG ORAL TABLET 2 po qd x 1 day, then 1 po qd x 4 days 10/13 AZITHROMYCIN 06966328374 No Longer Active Piotr Daley DO Active AZITHROMYCIN 250 MG ORAL TABLET 2 po qd x 1 day, then 1 po qd x 4 days 05/07 AZITHROMYCIN 92139112106 No Longer Active Piotr Daley DO Active LISINOPRIL-HYDROCHLOROTHIAZIDE 10-12.5 MG ORAL TABLET 1 tab by mouth daily LISINOPRIL-HYDROCHLOROTHIAZIDE 76091710346 Active Piotr Daley DO Active LISINOPRIL 10 MG ORAL TABLET 1/2-1 tab po every other day LISINOPRIL 53280243047 No Longer Active Piotr Daley DO Active VENTOLIN HFA 108 (90 Base) MCG/ACT INHALATION AEROSOL SOLUTION 2 puffs four times a day PRN cough ALBUTEROL SULFATE 37943143737 No Longer Active Piotr Daley DO Active NYSTATIN-TRIAMCINOLONE 745948-2.1 UNIT/GM-% EXTERNAL CREAM Apply to area BID NYSTATIN-TRIAMCINOLONE 07824808437 No Longer Active Alena Chavira DIRECTOR OF TESTING Active PHISOHEX 3 % LIQD Use Directed HEXACHLOROPHENE 45338567943 No Longer Active Sandra Salinas Active AZITHROMYCIN 250 MG ORAL TABLET 2 po qd x 1 day, then 1 po qd x 4 days 10/21 AZITHROMYCIN 83592450719 No Longer Active Katrina Rinaldi MD PhD Active AZITHROMYCIN 250 MG ORAL TABLET 2 po qd x 1 day, then 1 po qd x 4 days 10/16 AZITHROMYCIN 81781764641 No Longer Active Piotr Daley DO Active AZITHROMYCIN 500 MG INTRAVENOUS SOLUTION RECONSTITUTED 1 po q day AZITHROMYCIN 79353131796 No Longer Active Piotr Daley DO Active NYSTATIN-TRIAMCINOLONE 309357-4.1 UNIT/GM-% EXTERNAL CREAM apply bid NYSTATIN-TRIAMCINOLONE 04808289804 No Longer Active Piotr Daley DO Active IBUPROFEN 800 MG ORAL TABLET 1 po q 8 hours prn pain sparinly IBUPROFEN 26993482601 No Longer Active Piotr Daley DO Active VITAMIN D3 5000 UNIT ORAL CAPSULE 1 po daily CHOLECALCIFEROL 28890871787 Active Piotr Daley DO Active IBUPROFEN 800 MG ORAL TABLET 1 po q 8 hours prn pain sparinly IBUPROFEN 800 MG ORAL TABLET 261124 IBUPROFEN Inactive NYSTATIN-TRIAMCINOLONE 555041-1.1 UNIT/GM-% EXTERNAL CREAM apply bid NYSTATIN-TRIAMCINOLONE 134808-0.1 UNIT/GM-% EXTERNAL CREAM 8087040 NYSTATIN-TRIAMCINOLONE Inactive AZITHROMYCIN 500 MG INTRAVENOUS SOLUTION RECONSTITUTED 1 po q day AZITHROMYCIN 500 MG INTRAVENOUS SOLUTION RECONSTITUTED 69574303664 AZITHROMYCIN Inactive VENTOLIN HFA 108 (90 Base) MCG/ACT INHALATION AEROSOL SOLUTION 2 puffs four times a day PRN cough VENTOLIN HFA 108 (90 Base) MCG/ ACT INHALATION AEROSOL SOLUTION ALBUTEROL SULFATE Inactive LISINOPRIL 10 MG ORAL TABLET 1/2-1 tab po every other day LISINOPRIL 10 MG ORAL TABLET 846202 LISINOPRIL Inactive TUSSIONEX PENNKINETIC ER 10-8 MG/5ML ORAL SUSPENSION EXTENDED RELEASE 5ml po q12hr PRN Cough TUSSIONEX PENNKINETIC ER 10-8 MG/5ML ORAL SUSPENSION EXTENDED RELEASE HYDROCOD POLST-CHLORPHEN POLST Inactive PROMETHAZINE HCL 25 MG ORAL TABLET 1 four times a day as needed for nausea/ vomiting PROMETHAZINE HCL 25 MG ORAL TABLET 335054 PROMETHAZINE HCL Inactive PREDNISONE 20 MG ORAL TABLET 1 tablet twice daily for 2 days, then 1 tablet once daily for 2 days PREDNISONE 20 MG ORAL TABLET 871339 PREDNISONE Inactive WARFARIN SODIUM 4 MG ORAL TABLET 1 tab every evening WARFARIN SODIUM 4 MG ORAL TABLET 656345 WARFARIN SODIUM Inactive LOMOTIL 2.5-0.025 MG ORAL TABLET 1 to 2 four times a day as needed for diarrhea LOMOTIL 2.5-0.025 MG ORAL TABLET 5120137 DIPHENOXYLATE-ATROPINE Inactive IBUPROFEN 800 MG ORAL TABLET 1 tab every 8 hours as needed 07/12 IBUPROFEN 800 MG ORAL TABLET 758609 IBUPROFEN Inactive PREDNISONE 20 MG ORAL TABLET 2 tablets today, then 1 tablet days 2 through 4 PREDNISONE 20 MG ORAL TABLET 222855 PREDNISONE Inactive GABAPENTIN 300 MG ORAL CAPSULE 1 po q hs for nerve pain GABAPENTIN 300 MG ORAL CAPSULE 988591 GABAPENTIN Inactive TRAMADOL HCL 50 MG ORAL TABLET 1 po tid with ES Tylenol TRAMADOL HCL 50 MG ORAL TABLET 619990 TRAMADOL HCL Inactive PROAIR HFA 108 (90 BASE) MCG/ACT INHALATION AEROSOL SOLUTION 1-2 puffs four times a day as needed PROAIR HFA 108 (90 BASE) MCG/ACT INHALATION AEROSOL SOLUTION ALBUTEROL SULFATE Inactive PREDNISONE 20 MG ORAL TABLET two tabs by mouth today, then one tab by mouth days two and three PREDNISONE 20 MG ORAL TABLET 932269 PREDNISONE Inactive AZITHROMYCIN 250 MG ORAL TABLET 2 po qd x 1 day, then 1 po qd x 4 days 10/16 AZITHROMYCIN 250 MG ORAL TABLET 491305 AZITHROMYCIN Inactive AZITHROMYCIN 250 MG ORAL TABLET 2 po qd x 1 day, then 1 po qd x 4 days 10/21 AZITHROMYCIN 250 MG ORAL TABLET 897786 AZITHROMYCIN Inactive NYSTATIN-TRIAMCINOLONE 766054-4.1 UNIT/GM-% EXTERNAL CREAM Apply to area BID NYSTATIN-TRIAMCINOLONE 444071-6.1 UNIT/GM-% EXTERNAL CREAM 9413896 NYSTATIN-TRIAMCINOLONE Inactive AZITHROMYCIN 250 MG ORAL TABLET 2 po qd x 1 day, then 1 po qd x 4 days 05/07 AZITHROMYCIN 250 MG ORAL TABLET 978140 AZITHROMYCIN Inactive AZITHROMYCIN 250 MG ORAL TABLET 2 po qd x 1 day, then 1 po qd x 4 days 10/13 AZITHROMYCIN 250 MG ORAL TABLET 286462 AZITHROMYCIN Inactive AZITHROMYCIN 250 MG ORAL TABLET 2 po qd x 1 day, then 1 po qd x 4 days 07/12 AZITHROMYCIN 250 MG ORAL TABLET 123104 AZITHROMYCIN Inactive PREDNISONE 20 MG ORAL TABLET 2 tabs daily for 3 days, 1 tab daily for 3 days, 1/2 tab daily for 2 days PREDNISONE 20 MG ORAL TABLET 674488 PREDNISONE Inactive DOXYCYCLINE HYCLATE 100 MG ORAL CAPSULE 1 cap by mouth BID x10 days DOXYCYCLINE HYCLATE 100 MG ORAL CAPSULE 9192437 DOXYCYCLINE HYCLATE Inactive ZITHROMAX 250 MG ORAL TABLET Take two (2 ) tablets day one, then one (1) tablet a day for four (4) more days ZITHROMAX 250 MG ORAL TABLET 515533 AZITHROMYCIN Inactive Advance Directives Directive Description Start [...] Panel - Chemistry sodium, serum 141 mmol/L 418-241 4571/01/24 potassium, serum 4.3 mmol/L 3.5-5.2 chloride, serum [...] % 11.0-15.0 platelet count 172 THOUSAND/UL 10*3/mm3 659-301 6817/04/12 mean platelet volume 8.6 fL 7.5-12.5 Lab Report: Prothrombin Time - Coagulation prothrombin time (patient) 27.8 SECS s 11.1-13.4 international normalized ratio (INR) 4.2 1.0-3.5 Lab Report: Prothrombin Time Hemochron - Coagulation prothrombin time (patient) 33.0 SECS s 18.9-24.9 Encounters Code Encounter Date Provider Facility CPT-51719 Level 3 Est. Patient 12:33:59 GALLERY OR MUSEUM ATTENDANT Piotr Daley [facility] CPT-46616 Level 3 Est. Patient 15:56:17 GALLERY OR MUSEUM ATTENDANT Piotr Daley [facility] CPT-90820 Level 3 Est. Patient 10:34:54 GALLERY OR MUSEUM ATTENDANT Piotr Daley [facility] CPT-52758 Level 3 Est. Patient 17:10:19 [facility] Level 3 Est. Patient 10:48:17 GALLERY OR MUSEUM ATTENDANT Matthew Rangel MD [facility] CPT-11570 Level 4 Est. Patient 17:15:07 GALLERY OR MUSEUM ATTENDANT Piotr Daley [facility] CPT-09578 Level 3 Est. Patient 12:46:13 GALLERY OR MUSEUM ATTENDANT Piotr Daley [facility] CPT-01889 Level 3 Est. Patient 15:14:31 GALLERY OR MUSEUM ATTENDANT Piotr Daley [facility] CPT-49374 Level 3 Est. Patient 09:20:13 GALLERY OR MUSEUM ATTENDANT Piotr Wilson [facility] CPT-86227 Level 3 Est. Patient 09:49:40 CDT Piotr W Edi [facility] CPT-56410 Level 3 Est. Patient 16:28:11 CDT Piotr Daley [facility] CPT-58984 Level 3 Est. Patient 12:41:58 GALLERY OR MUSEUM ATTENDANT Piotr Daley [facility] CPT-76751 Level 3 Est. Patient 09:21:24 CDT Piotr Daley [facility] CPT-51419 Level 3 Est. Patient 09:21:11 CDT Piotr Daley [facility] CPT-93775 Level 3 Est. Patient 11:16:29 GALLERY OR MUSEUM ATTENDANT Piotr Daley [facility] CPT-79357 Level 3 Est. Patient 18:40:19 GALLERY OR MUSEUM ATTENDANT Piotr Daley [facility] CPT-89636 Level 3 Est. Patient 19:30:50 CDT Piotr Daley [facility] CPT-03354 Level 3 Est. Patient 22:06:44 CDT Katrina Rinaldi MD PhD [facility] CPT-06927 Level 3 Est. Patient 14:20:00 CDT Piotr Daley [facility] CPT-21175 Level 3 Est. Patient 14:15:22 GALLERY OR MUSEUM ATTENDANT Piotr Daley [facility] CPT-05709 Level 3 Est. Patient 20:19:57 GALLERY OR MUSEUM ATTENDANT Piotr Daley [facility] CPT-07528 Level 3 Est. Patient 16:44:32 CDT Piotr Katie Daley [facility] CPT-31039 Level 3 Est. Patient 08:48:46 GALLERY OR MUSEUM ATTENDANT Piotr Daley [facility] CPT-68413 Level 3 Est. Patient 21:01:21 CDT Piotr Katie Edi [facility] Procedures Code Procedure Name Date Entry Date Standard Description CPT-47625 Chest, 2 views 12:55:58 GALLERY OR MUSEUM ATTENDANT CPT-G0439 MC Subsequent Annual Wellness Exam 10:34:52 GALLERY OR MUSEUM ATTENDANT CPT-77349 BMP - LAB USE ONLY 17:19:11 GALLERY OR MUSEUM ATTENDANT CPT-64882 PT/INR - LAB USE ONLY 17:19:10 GALLERY OR MUSEUM ATTENDANT CPT-15088 Venipuncture Draw Fee 17:19:10 GALLERY OR MUSEUM ATTENDANT CPT-10182 PT/INR - LAB USE ONLY 08:12:25 GALLERY OR MUSEUM ATTENDANT CPT-36501 Venipuncture Draw Fee 08:12:24 GALLERY OR MUSEUM ATTENDANT CPT-10011 Venipuncture Draw Fee 11:31:07 GALLERY OR MUSEUM ATTENDANT CPT-83792 [facility]PS[facility] - LAB USE ONLY 11:31:07 [facility] CPT-01680 PT/INR - LAB USE ONLY 11:31:07 [facility] CPT-G0439 Subsequent Annual Wellness Exam 09:59:29 [facility] CPT-28905 Creatinine - LAB USE ONLY 14:37:55 [facility] CPT-36564 PT/INR - LAB USE ONLY 14:37:55 [facility] CPT-19437 Venipuncture Draw Fee 14:37:55 [facility] CPT-58747 LS spine comp w obliques - XRAY USE ONLY 12:59:25 GALLERY OR MUSEUM ATTENDANT CPT-02924 PT/INR - LAB USE ONLY 13:49:20 CDT CPT-22540 Venipuncture Draw Fee 13:49:19 CDT CPT-79557 PT/INR - LAB USE ONLY 15:48:49 CDT CPT-49600 Venipuncture Draw Fee 15:48:49 CDT CPT-42479 Venipuncture Draw Fee 11:31:59 CDT CPT-39989 PT/INR - LAB USE ONLY 11:31:59 CDT CPT-42177 Venipuncture Draw Fee 13:29:15 CDT CPT-18920 Thoracolumbar AP/Lat 15:19:19 GALLERY OR MUSEUM ATTENDANT CPT-G0438 Initial Annual Wellness Exam 12:18:54 GALLERY OR MUSEUM ATTENDANT CPT-44285 Knee 3V 09:57:38 CDT CPT-OV Office Visit 15:45:01 GALLERY OR MUSEUM ATTENDANT CPT-89537 Abd compl w upright 17:10:25 CDT
--- OUTSIDE RECORDS SUMMARY | 2018-07-18 07:54 | XMS REPORT | Clinical Summary ---
Author Author Admin, [employer] Address Unknown Phone Unavailable Allergies, Adverse [...] neoplasm of prostate V10.46 Active Alina Meyers TELEPHONE SERVICE REPRESENTATIVE Personal history of malignant neoplasm of prostate Coronary artery disease 414.00 Active Alina Meyers TELEPHONE SERVICE REPRESENTATIVE Coronary atherosclerosis of unspecified type of vessel, [place] or graft Back pain, thoracic region, left 724.1 Inactive Piotr Daley DO Pain in thoracic spine Thoracic back pain 724.5 Active Piotr Wilson Edi DO Backache, unspecified Back pain lumbar 724.2 Active Piotr Daley DO Lumbago Peripheral neuropathy, lower extremity, left 356.9 Active 02/19 Piotr W Edi DO Unspecified hereditary and idiopathic peripheral neuropathy Insect bite 919.4 Active Nella Harris TELEPHONE SERVICE REPRESENTATIVE Insect bite, nonvenomous, of other, multiple, and unspecified sites, without mention of infection Pruritus 698.9 Active Nella Harris TELEPHONE SERVICE REPRESENTATIVE Unspecified pruritic disorder FLANK PAIN, RIGHT ICD-789.09 [...] mouth BID x10 days 10/01 DOXYCYCLINE HYCLATE 10059423327 No Longer Active Nella Harris APRN Active WARFARIN SODIUM 5 MG TABS 1 tablet daily M-S, 1/2 tab on Heart WARFARIN SODIUM 27646726681 Active Catalina Freitas Active PROAIR HFA 108 (90 BASE) MCG/ACT AERS 1-2 puffs four times a day as needed ALBUTEROL SULFATE 42852586884 Active Matthew Rangel MD Active PREDNISONE 20 MG TAB 2 tabs daily for 3 days, 1 tab daily for 3 days, 1/2 tab daily for 2 days PREDNISONE 21992022455 No Longer Active Matthew Rangel MD Active TRAMADOL HCL 50 MG TABS 1 po tid with ES Tylenol TRAMADOL HCL 25696416591 No Longer Active Matthew Rangel MD Active GABAPENTIN 300 MG CAPS 1 po q hs for nerve pain GABAPENTIN 32363212156 No Longer Active Matthew Rangel MD Active PREDNISONE 20 MG TAB 2 tablets today, then 1 tablet days 2 through 4 PREDNISONE 44630041509 No Longer Active Piotr Daley DO Active AZITHROMYCIN 250 MG TABS 2 po qd x 1 day, then 1 po qd x 4 days AZITHROMYCIN 19253557560 No Longer Active Piotr Daley DO Active IBUPROFEN 800 MG TABS 1 tab every 8 hours as needed IBUPROFEN 58007266201 No Longer Active Piotr Daley DO Active LOMOTIL 2.5-0.025 MG TAB 1 to 2 four times a day as needed for diarrhea 10/13 DIPHENOXYLATE-ATROPINE 69099435301 No Longer Active Piotr Daley DO Active WARFARIN SODIUM 4 MG TABS 1 tab every evening WARFARIN SODIUM 82031784141 No Longer Active Piotr Daley DO Active PREDNISONE 20 MG TAB 1 tablet twice daily for 2 days, then 1 tablet once daily for 2 days PREDNISONE 06764690842 No Longer Active Piotr Daley DO Active PROMETHAZINE HCL 25 MG TABS 1 four times a day as needed for nausea/vomiting PROMETHAZINE HCL 38227957065 No Longer Active Piotr Daley DO Active TUSSIONEX PENNKINETIC ER 10-8 MG/5ML LQCR 5ml po q12hr PRN Cough HYDROCOD POLST-CHLORPHEN POLST 97198988251 No Longer Active Piotr Daley DO Active AZITHROMYCIN 250 MG TABS 2 po qd x 1 day, then 1 po qd x 4 days AZITHROMYCIN 94157333914 No Longer Active Piotr Daley DO Active AZITHROMYCIN 250 MG TABS 2 po qd x 1 day, then 1 po qd x 4 days AZITHROMYCIN 45909177781 No Longer Active Piotr Daley DO Active LISINOPRIL-HYDROCHLOROTHIAZIDE 10-12.5 MG TABS 1 tab by mouth daily LISINOPRIL-HYDROCHLOROTHIAZIDE 78825099868 Active Catalina Freitas Active LISINOPRIL 10 MG TABS 1/2-1 tab po every other day LISINOPRIL 21427237141 No Longer Active Piotr W Edi DO Active VENTOLIN HFA 108 (90 BASE) MCG/ACT AERS 2 puffs four times a day PRN cough ALBUTEROL SULFATE 42752115248 No Longer Active Piotr Daley DO Active NYSTATIN-TRIAMCINOLONE 687807-5.1 UNIT/GM-% CREA Apply to area BID NYSTATIN-TRIAMCINOLONE 52754447722 No Longer Active Alena Oswaldum CUSHION BUILDER Active PHISOHEX 3 % LIQD Use Directed HEXACHLOROPHENE 37485287960 No Longer Active Sandra [place] Active AZITHROMYCIN 250 MG TABS 2 po qd x 1 day, then 1 po qd x 4 days AZITHROMYCIN 33911601852 No Longer Active Katrina Rinaldi MD PhD Active AZITHROMYCIN 250 MG TABS 2 po qd x 1 day, then 1 po qd x 4 days AZITHROMYCIN 70554324982 No Longer Active Piotr Daley DO Active AZITHROMYCIN 500 MG SOLR 1 po q day AZITHROMYCIN 12722689163 No Longer Active Piotr Daley DO Active NYSTATIN-TRIAMCINOLONE 618206-0.1 UNIT/GM-% CREA apply bid 08/19 NYSTATIN-TRIAMCINOLONE 67541286183 No Longer Active Piotr Daley DO Active IBUPROFEN 800 MG TABS 1 po q 8 hours prn pain sparinly IBUPROFEN 28463500429 No Longer Active Piotr Daley DO Active VITAMIN D3 5000 UNIT CAPS 1 po daily CHOLECALCIFEROL 22339198799 Active Piotr Daley DO Active IBUPROFEN 800 MG TABS 1 po q 8 hours prn pain sparinly IBUPROFEN 800 MG TABS 113863 IBUPROFEN Inactive NYSTATIN-TRIAMCINOLONE 047922-2.1 UNIT/GM-% CREA apply bid 08/19 NYSTATIN-TRIAMCINOLONE 257719-3.1 UNIT/GM-% CREA 8645280 NYSTATIN- TRIAMCINOLONE Inactive AZITHROMYCIN 500 MG SOLR 1 po q day AZITHROMYCIN 500 MG SOLR 33756160644 AZITHROMYCIN Inactive VENTOLIN HFA 108 (90 BASE) MCG/ACT AERS 2 puffs four times a day PRN cough VENTOLIN HFA 108 (90 BASE) MCG/ACT AERS ALBUTEROL SULFATE Inactive LISINOPRIL 10 MG TABS 1/2-1 tab po every other day LISINOPRIL 10 MG TABS 233403 LISINOPRIL Inactive TUSSIONEX PENNKINETIC ER 10-8 MG/5ML LQCR 5ml po q12hr PRN Cough TUSSIONEX PENNKINETIC ER 10-8 MG/5ML LQCR HYDROCOD POLST- CHLORPHEN POLST Inactive PROMETHAZINE HCL 25 MG TABS 1 four times a day as needed for nausea/vomiting PROMETHAZINE HCL 25 MG TABS 879940 PROMETHAZINE HCL Inactive PREDNISONE 20 MG TAB 1 tablet twice daily for 2 days, then 1 tablet once daily for 2 days PREDNISONE 20 MG TAB 264426 PREDNISONE Inactive WARFARIN SODIUM 4 MG TABS 1 tab every evening WARFARIN SODIUM 4 MG TABS 773086 WARFARIN SODIUM Inactive LOMOTIL 2.5-0.025 MG TAB 1 to 2 four times a day as needed for diarrhea 10/13 LOMOTIL 2.5-0.025 MG TAB 4246299 DIPHENOXYLATE-ATROPINE Inactive IBUPROFEN 800 MG TABS 1 tab every 8 hours as needed IBUPROFEN 800 MG TABS 743858 IBUPROFEN Inactive PREDNISONE 20 MG TAB 2 tablets today, then 1 tablet days 2 through 4 PREDNISONE 20 MG TAB 460934 PREDNISONE Inactive GABAPENTIN 300 MG CAPS 1 po q hs for nerve pain GABAPENTIN 300 MG CAPS 632309 GABAPENTIN Inactive TRAMADOL HCL 50 MG TABS 1 po tid with ES Tylenol TRAMADOL HCL 50 MG TABS 226249 TRAMADOL HCL Inactive AZITHROMYCIN 250 MG TABS 2 po qd x 1 day, then 1 po qd x 4 days AZITHROMYCIN 250 MG TABS 6787114 AZITHROMYCIN Inactive AZITHROMYCIN 250 MG TABS 2 po qd x 1 day, then 1 po qd x 4 days AZITHROMYCIN 250 MG TABS 6272388 AZITHROMYCIN Inactive NYSTATIN-TRIAMCINOLONE 426521-9.1 UNIT/GM-% CREA Apply to area BID NYSTATIN-TRIAMCINOLONE 723902-7.1 UNIT/GM-% CREA 9725418 NYSTATIN-TRIAMCINOLONE Inactive AZITHROMYCIN 250 MG TABS 2 po qd x 1 day, then 1 po qd x 4 days AZITHROMYCIN 250 MG TABS 6239648 AZITHROMYCIN Inactive AZITHROMYCIN 250 MG TABS 2 po qd x 1 day, then 1 po qd x 4 days AZITHROMYCIN 250 MG TABS 7646053 AZITHROMYCIN Inactive AZITHROMYCIN 250 MG TABS 2 po qd x 1 day, then 1 po qd x 4 days AZITHROMYCIN 250 MG TABS 2127471 AZITHROMYCIN Inactive PREDNISONE 20 MG TAB 2 tabs daily for 3 days, 1 tab daily for 3 days, 1/2 tab daily for 2 days PREDNISONE 20 MG TAB 370848 PREDNISONE Inactive DOXYCYCLINE HYCLATE 100 MG CAP 1 cap by mouth BID x10 days 10/01 DOXYCYCLINE HYCLATE 100 MG CAP 9133911 DOXYCYCLINE HYCLATE Inactive Advance Directives Directive Description [...] Panel - Chemistry sodium, serum 141 mmol/L 377-767 1036/01/24 potassium, serum 4.3 mmol/L 3.5-5.2 chloride, serum [...] % 11.0-15.0 platelet count 172 THOUSAND/UL 10*3/mm3 647-687 3547/04/12 mean platelet volume 8.6 fL 7.5-12.5 Lab [...] ratio (INR) 4.2 1.0-3.5 prothrombin time (patient) 19.8 SECS s 11.1-13.4 international normalized ratio (INR) 2.3 1.0-3.5 prothrombin time (patient) 23.8 SECS s 11.1-13.4 international normalized ratio (INR) 3.2 1.0-3.5 prothrombin time (patient) 23.1 SECS s 11.1-13.4 international normalized ratio (INR) 3.0 1.0-3.5 Lab Report: Prothrombin Time Hemochron - Coagulation prothrombin time (patient) 33.0 SECS s 18.9-24.9 Encounters Code Encounter Date Provider Facility CPT-42727 Level 3 Est. Patient 17:10:19 CDT Nella Harris APRN [facility] CPT-08567 Level 3 Est. Patient 10:48:17 NIGHT SHIFT SUPERVISOR Matthew Rangel MD [facility] CPT-12773 Level 4 Est. Patient 17:15:07 NIGHT SHIFT SUPERVISOR Piotr Daley [facility] CPT-40960 Level 3 Est. Patient 12:46:13 NIGHT SHIFT SUPERVISOR Piotr Daley [facility] CPT-41083 Level 3 Est. Patient 15:14:31 NIGHT SHIFT SUPERVISOR Piotr Daley [facility] CPT-06662 Level 3 Est. Patient 09:20:13 NIGHT SHIFT SUPERVISOR Piotr Daley [facility] CPT-90706 Level 3 Est. Patient 09:49:40 CDT Piotr Wilson [facility] CPT-17803 Level 3 Est. Patient 16:28:11 CDT Piotr Daley [facility] CPT-04676 Level 3 Est. Patient 12:41:58 NIGHT SHIFT SUPERVISOR Piotr Daley [facility] CPT-00306 Level 3 Est. Patient 09:21:24 CDT Piotr Daley [facility] CPT-16087 Level 3 Est. Patient 09:21:11 CDT Piotr Wilson [facility] CPT-08673 Level 3 Est. Patient 11:16:29 NIGHT SHIFT SUPERVISOR Piotr Daley [facility] CPT-21551 Level 3 Est. Patient 18:40:19 NIGHT SHIFT SUPERVISOR Piotr Daley [facility] CPT-39298 Level 3 Est. Patient 19:30:50 CDT Piotr Wilson [facility] CPT-14602 Level 3 Est. Patient 22:06:44 CDT Katrina Rinaldi MD PhD [facility] CPT-63370 Level 3 Est. Patient 14:20:00 CDT Piotr Daley [facility] CPT-93566 Level 3 Est. Patient 14:15:22 NIGHT SHIFT SUPERVISOR Piotr Daley [facility] CPT-38188 Level 3 Est. Patient 20:19:57 NIGHT SHIFT SUPERVISOR Piotr Daley [facility] CPT-73397 Level 3 Est. Patient 16:44:32 CDT Piotr Daley [facility] CPT-26341 Level 3 Est. Patient 08:48:46 NIGHT SHIFT SUPERVISOR Piotr Daley [facility] CPT-32103 Level 3 Est. Patient 21:01:21 CDT Piotr Daley [facility] Procedures Code Procedure Name Date Entry Date Standard Description CPT-50843 BMP - LAB USE ONLY 17:19:11 NIGHT SHIFT SUPERVISOR CPT-50538 PT/INR - LAB USE ONLY 17:19:10 NIGHT SHIFT SUPERVISOR CPT-64618 Venipuncture Draw Fee 17:19:10 NIGHT SHIFT SUPERVISOR CPT-05107 PT/INR - LAB USE ONLY 08:12:25 NIGHT SHIFT SUPERVISOR CPT-64175 Venipuncture Draw Fee 08:12:24 NIGHT SHIFT SUPERVISOR CPT-77193 Venipuncture Draw Fee 11:31:07 NIGHT SHIFT SUPERVISOR CPT-18433 TPSA - LAB USE ONLY 11:31:07 NIGHT SHIFT SUPERVISOR CPT-97614 PT/INR - LAB USE ONLY 11:31:07 NIGHT SHIFT SUPERVISOR CPT-G0439 [facility] Annual Wellness Exam 09:59:29 NIGHT SHIFT SUPERVISOR CPT-65760 Creatinine - LAB USE ONLY 14:37:55 NIGHT SHIFT SUPERVISOR CPT-08803 PT/INR - LAB USE ONLY 14:37:55 NIGHT SHIFT SUPERVISOR CPT-23985 Venipuncture Draw Fee 14:37:55 NIGHT SHIFT SUPERVISOR CPT-65865 LS spine comp w obliques - XRAY USE ONLY 12:59:25 NIGHT SHIFT SUPERVISOR CPT-59376 PT/INR - LAB USE ONLY 13:49:20 CDT CPT-60665 Venipuncture Draw Fee 13:49:19 CDT CPT-79839 PT/INR - LAB USE ONLY 15:48:49 CDT CPT-74856 Venipuncture Draw Fee 15:48:49 CDT CPT-74899 Venipuncture Draw Fee 11:31:59 CDT CPT-55453 PT/INR - LAB USE ONLY 11:31:59 CDT CPT-00661 Venipuncture Draw Fee 13:29:15 CDT CPT-28325 Thoracolumbar AP/Lat 15:19:19 NIGHT SHIFT SUPERVISOR CPT-G0438 Initial Annual Wellness Exam 12:18:54 NIGHT SHIFT SUPERVISOR CPT-12327 Knee 3V 09:57:38 CDT CPT-OV Office Visit 15:45:01 NIGHT SHIFT SUPERVISOR CPT-36961 Abd compl w upright 17:10:25 CDT
--- OUTSIDE RECORDS SUMMARY | 2018-07-18 07:55 | XMS REPORT | Clinical Summary ---
Author Author Admin, [employer] Organization [facility] Address Unknown Phone Unavailable Allergies, Adverse [...] 1 tablet days 2 through 4 PREDNISONE 76813986359 Active Piotr Daley DO Active AZITHROMYCIN 250 MG TABS 2 po qd x 1 day, then 1 po qd x 4 days AZITHROMYCIN 96807355872 No Longer Active Piotr Daley DO Active IBUPROFEN 800 MG TABS 1 tab every 8 hours as needed IBUPROFEN 44397148379 No Longer Active Piotr Daley DO Active LOMOTIL 2.5-0.025 MG TAB 1 to 2 four times a day as needed for diarrhea 10/13 DIPHENOXYLATE-ATROPINE 54177921366 No Longer Active Piotr Daley DO Active WARFARIN SODIUM 5 MG TABS 1 tablet daily except for Saturday and Wed 1/2 tablet. WARFARIN SODIUM 68510893794 Active Piotr Daley DO Active WARFARIN SODIUM 4 MG TABS 1 tab every evening WARFARIN SODIUM 65914561133 No Longer Active Piotr Daley DO Active PREDNISONE 20 MG TAB 1 tablet twice daily for 2 days, then 1 tablet once daily for 2 days PREDNISONE 57808139800 No Longer Active Piotr Daley DO Active PROMETHAZINE HCL 25 MG TABS 1 four times a day as needed for nausea/vomiting PROMETHAZINE HCL 02233992373 No Longer Active Piotr Daley DO Active TUSSIONEX PENNKINETIC ER 10-8 MG/5ML LQCR 5ml po q12hr PRN Cough HYDROCOD POLST-CHLORPHEN POLST 78061444954 No Longer Active Piotr Daley DO Active AZITHROMYCIN 250 MG TABS 2 po qd x 1 day, then 1 po qd x 4 days AZITHROMYCIN 63027936332 No Longer Active Piotr Daley DO Active AZITHROMYCIN 250 MG TABS 2 po qd x 1 day, then 1 po qd x 4 days AZITHROMYCIN 57524565978 No Longer Active Piotr Daley DO Active LISINOPRIL-HYDROCHLOROTHIAZIDE 10-12.5 MG TABS 1 tab by mouth daily LISINOPRIL-HYDROCHLOROTHIAZIDE 53566468841 Active Piotr Daley DO Active LISINOPRIL 10 MG TABS 1/2-1 tab po every other day LISINOPRIL 46443256987 No Longer Active Piotr Daley DO Active VENTOLIN HFA 108 (90 BASE) MCG/ACT AERS 2 puffs four times a day PRN cough ALBUTEROL SULFATE 84674464956 No Longer Active Piotr Daley DO Active NYSTATIN-TRIAMCINOLONE 343113-9.1 UNIT/GM-% CREA Apply to area BID NYSTATIN-TRIAMCINOLONE 31519940392 No Longer Active Alena Chavira AUTO TIRE RECAPPER Active PHISOHEX 3 % LIQD Use Directed HEXACHLOROPHENE 43363634731 No Longer Active Sandra [place] Active AZITHROMYCIN 250 MG TABS 2 po qd x 1 day, then 1 po qd x 4 days AZITHROMYCIN 76122335289 No Longer Active Katrina Rinaldi MD PhD Active AZITHROMYCIN 250 MG TABS 2 po qd x 1 day, then 1 po qd x 4 days AZITHROMYCIN 83215558681 No Longer Active Piotr Daley DO Active AZITHROMYCIN 500 MG SOLR 1 po q day AZITHROMYCIN 68985254497 No Longer Active Piotr Daley DO Active NYSTATIN-TRIAMCINOLONE 510005-6.1 UNIT/GM-% CREA apply bid 08/19 NYSTATIN-TRIAMCINOLONE 77152567387 No Longer Active Piotr Daley DO Active IBUPROFEN 800 MG TABS 1 po q 8 hours prn pain sparinly IBUPROFEN 22390312735 No Longer Active Piotr Daley DO Active VITAMIN D3 5000 UNIT CAPS 1 po daily CHOLECALCIFEROL 20813262036 Active Piotr Daley DO Active IBUPROFEN 800 MG TABS 1 po q 8 hours prn pain sparinly IBUPROFEN 800 MG TABS 513662 IBUPROFEN Inactive NYSTATIN-TRIAMCINOLONE 147652-6.1 UNIT/GM-% CREA apply bid 08/19 NYSTATIN-TRIAMCINOLONE 211029-0.1 UNIT/GM-% CREA 0542165 NYSTATIN- TRIAMCINOLONE Inactive AZITHROMYCIN 500 MG SOLR 1 po q day AZITHROMYCIN 500 MG SOLR 736350 AZITHROMYCIN Inactive VENTOLIN HFA 108 (90 BASE) MCG/ACT AERS 2 puffs four times a day PRN cough VENTOLIN HFA 108 (90 BASE) MCG/ACT AERS ALBUTEROL SULFATE Inactive LISINOPRIL 10 MG TABS 1/2-1 tab po every other day LISINOPRIL 10 MG TABS 513857 LISINOPRIL Inactive TUSSIONEX PENNKINETIC ER 10-8 MG/5ML LQCR 5ml po q12hr PRN Cough TUSSIONEX PENNKINETIC ER 10-8 MG/5ML LQCR HYDROCOD POLST- CHLORPHEN POLST Inactive PROMETHAZINE HCL 25 MG TABS 1 four times a day as needed for nausea/vomiting PROMETHAZINE HCL 25 MG TABS 931445 PROMETHAZINE HCL Inactive PREDNISONE 20 MG TAB 1 tablet twice daily for 2 days, then 1 tablet once daily for 2 days PREDNISONE 20 MG TAB 655390 PREDNISONE Inactive WARFARIN SODIUM 4 MG TABS 1 tab every evening WARFARIN SODIUM 4 MG TABS 145905 WARFARIN SODIUM Inactive LOMOTIL 2.5-0.025 MG TAB 1 to 2 four times a day as needed for diarrhea 10/13 LOMOTIL 2.5-0.025 MG TAB 8502896 DIPHENOXYLATE-ATROPINE Inactive IBUPROFEN 800 MG TABS 1 tab every 8 hours as needed IBUPROFEN 800 MG TABS 462587 IBUPROFEN Inactive AZITHROMYCIN 250 MG TABS 2 po qd x 1 day, then 1 po qd x 4 days AZITHROMYCIN 250 MG TABS 9666491 AZITHROMYCIN Inactive AZITHROMYCIN 250 MG TABS 2 po qd x 1 day, then 1 po qd x 4 days AZITHROMYCIN 250 MG TABS 2744411 AZITHROMYCIN Inactive NYSTATIN-TRIAMCINOLONE 306456-5.1 UNIT/GM-% CREA Apply to area BID NYSTATIN-TRIAMCINOLONE 405265-6.1 UNIT/GM-% CREA 2017627 NYSTATIN-TRIAMCINOLONE Inactive AZITHROMYCIN 250 MG TABS 2 po qd x 1 day, then 1 po qd x 4 days AZITHROMYCIN 250 MG TABS 7719366 AZITHROMYCIN Inactive AZITHROMYCIN 250 MG TABS 2 po qd x 1 day, then 1 po qd x 4 days AZITHROMYCIN 250 MG TABS 3804857 AZITHROMYCIN Inactive AZITHROMYCIN 250 MG TABS 2 po qd x 1 day, then 1 po qd x 4 days AZITHROMYCIN 250 MG TABS 1928164 AZITHROMYCIN Inactive Vital Signs Date Name Value [...] ... - Chemistry sodium, serum 142 mmol/L 365-083 4508/12/01 potassium, serum 4.7 mmol/L 3.5-5.2 chloride, serum [...] 142-424 Encounters Code Encounter Date Provider Facility CPT-08994 Level 3 Est. Patient 16:28:11 CDT Piotr Daley [facility] CPT-67442 Level 3 Est. Patient 12:41:58 SCHOOL PSYCHOLOGIST Piotr Daley [facility] CPT-17622 Level 3 Est. Patient 09:21:24 CDT Piotr Daley [facility] CPT-33653 Level 3 Est. Patient 09:21:11 CDT Piotr Wilson [facility] CPT-68747 Level 3 Est. Patient 11:16:29 SCHOOL PSYCHOLOGIST Piotr Daley [facility] CPT-87943 Level 3 Est. Patient 18:40:19 SCHOOL PSYCHOLOGIST Piotr Daley [facility] CPT-16673 Level 3 Est. Patient 19:30:50 CDT Piotr Wilson [facility] CPT-73576 Level 3 Est. Patient 22:06:44 CDT Katrina Rinaldi MD PhD [facility] CPT-34648 Level 3 Est. Patient 14:20:00 CDT Piotr Daley [facility] CPT-30364 Level 3 Est. Patient 14:15:22 SCHOOL PSYCHOLOGIST Piotr Daley [facility] CPT-71082 Level 3 Est. Patient 20:19:57 SCHOOL PSYCHOLOGIST Piotr Daley [facility] CPT-25233 Level 3 Est. Patient 16:44:32 CDT Piotr Daley [facility] CPT-88015 Level 3 Est. Patient 08:48:46 SCHOOL PSYCHOLOGIST Piotr Daley [facility] CPT-89093 Level 3 Est. Patient 21:01:21 CDT Piotr Daley [facility] Procedures Code Procedure Name Date Entry Date Standard Description CPT-OV Office Visit 15:45:01 SCHOOL PSYCHOLOGIST CPT-43479 Abd compl w upright 17:10:25 CDT
--- OUTSIDE RECORDS SUMMARY | 2018-07-18 07:55 | XMS REPORT | Clinical Summary ---
Author Author Admin, Isidra Organization [employer] Address Unknown Phone Unavailable Allergies, Adverse Reactions, [...] Coronary atherosclerosis of unspecified type of vessel, [place] or graft Back pain, thoracic region, left 724.1 Inactive Piotr Katie Edi DO Pain in thoracic spine Thoracic back pain 724.5 Active Ipotr Katie Edi DO Backache, unspecified Back pain [...] po q hs for nerve pain GABAPENTIN 44385835481 Active Piotr Daley DO Active WARFARIN SODIUM 5 MG TABS 1 tablet daily WARFARIN SODIUM 80141559156 Active Simi Meyers Active TRAMADOL HCL 50 MG TABS 1 po tid with ES Tylenol TRAMADOL HCL 86186810908 Active Piotr Daley DO Active PREDNISONE 20 MG TAB 2 tablets today, then 1 tablet days 2 through 4 PREDNISONE 90513937946 No Longer Active Piotr Daley DO Active AZITHROMYCIN 250 MG TABS 2 po qd x 1 day, then 1 po qd x 4 days AZITHROMYCIN 07661606165 No Longer Active Piotr Daley DO Active IBUPROFEN 800 MG TABS 1 tab every 8 hours as needed IBUPROFEN 36594298893 No Longer Active Piotr Daley DO Active LOMOTIL 2.5-0.025 MG TAB 1 to 2 four times a day as needed for diarrhea 10/13 DIPHENOXYLATE-ATROPINE 18027208049 No Longer Active Piotr Daley DO Active WARFARIN SODIUM 4 MG TABS 1 tab every evening WARFARIN SODIUM 10752416216 No Longer Active Piotr Daley DO Active PREDNISONE 20 MG TAB 1 tablet twice daily for 2 days, then 1 tablet once daily for 2 days PREDNISONE 09107066558 No Longer Active Piotr Daley DO Active PROMETHAZINE HCL 25 MG TABS 1 four times a day as needed for nausea/vomiting PROMETHAZINE HCL 89156160693 No Longer Active Piotr Daley DO Active TUSSIONEX PENNKINETIC ER 10-8 MG/5ML LQCR 5ml po q12hr PRN Cough HYDROCOD POLST-CHLORPHEN POLST 96088793290 No Longer Active Piotr Daley DO Active AZITHROMYCIN 250 MG TABS 2 po qd x 1 day, then 1 po qd x 4 days AZITHROMYCIN 61347605445 No Longer Active Piotr Daley DO Active AZITHROMYCIN 250 MG TABS 2 po qd x 1 day, then 1 po qd x 4 days AZITHROMYCIN 03069723112 No Longer Active Piotr Daley DO Active LISINOPRIL-HYDROCHLOROTHIAZIDE 10-12.5 MG TABS 1 tab by mouth daily LISINOPRIL-HYDROCHLOROTHIAZIDE 59159982091 Active Simi Meyers Active LISINOPRIL 10 MG TABS 1/2-1 tab po every other day LISINOPRIL 52089240369 No Longer Active Piotr Daley DO Active VENTOLIN HFA 108 (90 BASE) MCG/ACT AERS 2 puffs four times a day PRN cough ALBUTEROL SULFATE 24024281007 No Longer Active Piotr Daley DO Active NYSTATIN-TRIAMCINOLONE 629676-7.1 UNIT/GM-% CREA Apply to area BID NYSTATIN-TRIAMCINOLONE 42133913781 No Longer Active Alena Chavira MANAGER SKILLED Active PHISOHEX 3 % LIQD Use Directed HEXACHLOROPHENE 33214182877 No Longer Active Sandra Rodanthe Active AZITHROMYCIN 250 MG TABS 2 po qd x 1 day, then 1 po qd x 4 days AZITHROMYCIN 80346829537 No Longer Active Katrina Rinaldi MD PhD Active AZITHROMYCIN 250 MG TABS 2 po qd x 1 day, then 1 po qd x 4 days AZITHROMYCIN 69504205389 No Longer Active Piotr Daley DO Active AZITHROMYCIN 500 MG SOLR 1 po q day AZITHROMYCIN 70177414508 No Longer Active Piotr Daley DO Active NYSTATIN-TRIAMCINOLONE 972570-8.1 UNIT/GM-% CREA apply bid 08/19 NYSTATIN-TRIAMCINOLONE 42098226221 No Longer Active Piotr Daley DO Active IBUPROFEN 800 MG TABS 1 po q 8 hours prn pain sparinly IBUPROFEN 41015324211 No Longer Active Piotr Daley DO Active VITAMIN D3 5000 UNIT CAPS 1 po daily CHOLECALCIFEROL 78556511347 Active Piotr Daley DO Active IBUPROFEN 800 MG TABS 1 po q 8 hours prn pain sparinly IBUPROFEN 800 MG TABS 466625 IBUPROFEN Inactive NYSTATIN-TRIAMCINOLONE 287544-3.1 UNIT/GM-% CREA apply bid 08/19 NYSTATIN-TRIAMCINOLONE 209050-9.1 UNIT/GM-% CREA 8117611 NYSTATIN- TRIAMCINOLONE Inactive AZITHROMYCIN 500 MG SOLR 1 po q day AZITHROMYCIN 500 MG SOLR 70581109609 AZITHROMYCIN Inactive VENTOLIN HFA 108 (90 BASE) MCG/ACT AERS 2 puffs four times a day PRN cough VENTOLIN HFA 108 (90 BASE) MCG/ACT AERS ALBUTEROL SULFATE Inactive LISINOPRIL 10 MG TABS 1/2-1 tab po every other day LISINOPRIL 10 MG TABS 624923 LISINOPRIL Inactive TUSSIONEX PENNKINETIC ER 10-8 MG/5ML LQCR 5ml po q12hr PRN Cough TUSSIONEX PENNKINETIC ER 10-8 MG/5ML LQCR HYDROCOD POLST- CHLORPHEN POLST Inactive PROMETHAZINE HCL 25 MG TABS 1 four times a day as needed for nausea/vomiting PROMETHAZINE HCL 25 MG TABS 055089 PROMETHAZINE HCL Inactive PREDNISONE 20 MG TAB 1 tablet twice daily for 2 days, then 1 tablet once daily for 2 days PREDNISONE 20 MG TAB 667588 PREDNISONE Inactive WARFARIN SODIUM 4 MG TABS 1 tab every evening WARFARIN SODIUM 4 MG TABS 052369 WARFARIN SODIUM Inactive LOMOTIL 2.5-0.025 MG TAB 1 to 2 four times a day as needed for diarrhea 10/13 LOMOTIL 2.5-0.025 MG TAB 5942859 DIPHENOXYLATE-ATROPINE Inactive IBUPROFEN 800 MG TABS 1 tab every 8 hours as needed IBUPROFEN 800 MG TABS 310399 IBUPROFEN Inactive PREDNISONE 20 MG TAB 2 tablets today, then 1 tablet days 2 through 4 PREDNISONE 20 MG TAB 635385 PREDNISONE Inactive AZITHROMYCIN 250 MG TABS 2 po qd x 1 day, then 1 po qd x 4 days AZITHROMYCIN 250 MG TABS 5495096 AZITHROMYCIN Inactive AZITHROMYCIN 250 MG TABS 2 po qd x 1 day, then 1 po qd x 4 days AZITHROMYCIN 250 MG TABS 1100254 AZITHROMYCIN Inactive NYSTATIN-TRIAMCINOLONE 805496-3.1 UNIT/GM-% CREA Apply to area BID NYSTATIN-TRIAMCINOLONE 346337-4.1 UNIT/GM-% CREA 9636941 NYSTATIN-TRIAMCINOLONE Inactive AZITHROMYCIN 250 MG TABS 2 po qd x 1 day, then 1 po qd x 4 days AZITHROMYCIN 250 MG TABS 9081001 AZITHROMYCIN Inactive AZITHROMYCIN 250 MG TABS 2 po qd x 1 day, then 1 po qd x 4 days AZITHROMYCIN 250 MG TABS 3365539 AZITHROMYCIN Inactive AZITHROMYCIN 250 MG TABS 2 po qd x 1 day, then 1 po qd x 4 days AZITHROMYCIN 250 MG TABS 1002041 AZITHROMYCIN Inactive Advance Directives Directive Description Start [...] Panel - Chemistry sodium, serum 141 mmol/L 837-308 4291/01/24 potassium, serum 4.3 mmol/L 3.5-5.2 chloride, serum 103 mmol/L 98-107 carbon dioxide, venous blood 30.7 mmol/L 21.0-32.0 blood glucose 90 mg/dL 65-110 calcium, serum 8.5 mg/dL 8.5-10.1 urea nitrogen, blood 16 mg/dL 7-18 creatinine, serum 1.09 mg/dL 0.55-1.30 Lab Report: Comp. Metabolic Panel - Chemistry sodium, serum 141 mmol/L 564-269 3149/06/28 carbon dioxide, venous blood 31.0 mmol/L 21.0-32.0 [...] 1.0-3.5 Encounters Code Encounter Date Provider Facility CPT-21476 Level 4 Est. Patient 17:15:07 SONG LYRICIST Piotr Daley [facility] CPT-28698 Level 3 Est. Patient 12:46:13 SONG LYRICIST Piotr Daley [facility] CPT-63850 Level 3 Est. Patient 15:14:31 SONG LYRICIST Piotr Daley [facility] CPT-74580 Level 3 Est. Patient 09:20:13 SONG LYRICIST Piotr Daley [facility] CPT-73797 Level 3 Est. Patient 09:49:40 CDT Piotr Wilson [facility] CPT-51738 Level 3 Est. Patient 16:28:11 CDT Piotr Daley [facility] CPT-18103 Level 3 Est. Patient 12:41:58 SONG LYRICIST Piotr Daley [facility] CPT-73881 Level 3 Est. Patient 09:21:24 CDT Piotr Wilson [facility] CPT-20076 Level 3 Est. Patient 09:21:11 CDT Piotr Daley [facility] CPT-79702 Level 3 Est. Patient 11:16:29 SONG LYRICIST Piotr Daley [facility] CPT-17618 Level 3 Est. Patient 18:40:19 SONG LYRICIST Piotr Daley [facility] CPT-30123 Level 3 Est. Patient 19:30:50 CDT Piotr Daley [facility] CPT-98130 Level 3 Est. Patient 22:06:44 CDT Katrina Rinaldi MD [facility] CPT-47122 Level 3 Est. Patient 14:20:00 CDT Piotr Daley [facility] CPT-50404 Level 3 Est. Patient 14:15:22 SONG LYRICIST Piotr Daley [facility] CPT-00440 Level 3 Est. Patient 20:19:57 SONG LYRICIST Piotr Daley DO [facility] CPT-85440 Level 3 Est. Patient 16:44:32 CDT Piotr Daley [facility] CPT-63705 Level 3 Est. Patient 08:48:46 SONG LYRICIST Piotr Daley [facility] CPT-68096 Level 3 Est. Patient 21:01:21 CDT Piotr Daley [facility] Procedures Code Procedure Name Date Entry Date Standard Description CPT-62564 BMP - LAB USE ONLY 17:19:11 SONG LYRICIST CPT-22654 PT/INR - LAB USE ONLY 17:19:10 SONG LYRICIST CPT-36838 Venipuncture Draw Fee 17:19:10 SONG LYRICIST CPT-20821 PT/INR - LAB USE ONLY 08:12:25 SONG LYRICIST CPT-42645 Venipuncture Draw Fee 08:12:24 SONG LYRICIST CPT-74287 Venipuncture Draw Fee 11:31:07 SONG LYRICIST CPT-52601 TPSA - LAB USE ONLY 11:31:07 SONG LYRICIST CPT-80749 PT/INR - LAB USE ONLY 11:31:07 SONG LYRICIST CPT-G0439 Subsequent Annual Wellness Exam 09:59:29 SONG LYRICIST CPT-13088 Creatinine - LAB USE ONLY 14:37:55 SONG LYRICIST CPT-08209 PT/INR - LAB USE ONLY 14:37:55 SONG LYRICIST CPT-10644 Venipuncture Draw Fee 14:37:55 SONG LYRICIST CPT-58580 LS spine comp w obliques - XRAY USE ONLY 12:59:25 SONG LYRICIST CPT-21224 PT/INR - LAB USE ONLY 13:49:20 CDT CPT-67694 Venipuncture Draw Fee 13:49:19 CDT CPT-37452 PT/INR - LAB USE ONLY 15:48:49 CDT CPT-88589 Venipuncture Draw Fee 15:48:49 CDT CPT-87152 Venipuncture Draw Fee 11:31:59 CDT CPT-02856 PT/INR - LAB USE ONLY 11:31:59 CDT CPT-22156 Venipuncture Draw Fee 13:29:15 CDT CPT-84725 Thoracolumbar AP/Lat 15:19:19 SONG LYRICIST CPT-G0438 Initial Annual Wellness Exam 12:18:54 SONG LYRICIST CPT-47856 Knee 3V 09:57:38 CDT CPT-OV Office Visit 15:45:01 SONG LYRICIST CPT-85649 Abd compl w upright 17:10:25 CDT
--- OUTSIDE RECORDS SUMMARY | 2018-07-18 07:56 | XMS REPORT | Clinical Summary ---
Author Author Admin, Isidra Organization [employer] Address Unknown Phone Unavailable Allergies, Adverse Reactions, [...] malignant neoplasms of colon BRONCHITIS-ACUTE 466.0 Inactive Poitr Daley DO Acute bronchitis Rule out DEEP [...] Coronary atherosclerosis of unspecified type of vessel, [place] or graft Back pain, thoracic region, left [...] mention of infection Pruritus 698.9 Resolved Piotr Ktaie Edi DO Unspecified pruritic disorder Wellness exam V70.0 Active Emelyn Russel Norris Routine general medical examination at a health care facility Bronchitis-Acute 466.0 Active Piotr Daley DO Acute bronchitis FLANK PAIN, RIGHT ICD-789.09 Inactive Katrina Rinaldi MD PhD HEALTH MAINTENANCE EXAM ICD-V70.0 Inactive Katrina Rinaldi MD PhD BRONCHITIS-ACUTE ICD-466.0 Inactive Piotr Daley DO SCREENING, COLON CANCER ICD-V76.51 Inactive Katrina Rinaldi MD PhD BRONCHITIS-ACUTE ICD-466.0 Inactive Piotr Daley DO DEEP VENOUS THROMBOPHLEBITIS, LEG, 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 Inactive Sirisha Chen DIRECTOR OF TAX SERVICES DEEP VENOUS THROMBOPHLEBITIS, LEG, 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 Inactive Sirisha Chen DIRECTOR OF TAX SERVICES Seborrheic keratosis ICD-702.19 Inactive Sirisha Chen DIRECTOR OF TAX SERVICES Bronchitis-Acute ICD-466.0 Inactive Piotr Daley DO Leg pain, right ICD-729.5 Inactive Sirisha Chen DIRECTOR OF TAX SERVICES Right leg pain ICD-729.5 Inactive Sirisha Chen DIRECTOR OF TAX SERVICES Bronchitis-Acute ICD-466.0 Inactive Sirisha Chen DIRECTOR OF TAX SERVICES Knee pain, left ICD-719.46 Inactive Sirisha Chen DIRECTOR OF TAX SERVICES Actinic keratoses ICD-702.0 Inactive Sirisha Chen DIRECTOR OF TAX SERVICES Back pain, thoracic region, left ICD-724.1 Inactive Piotr Daley DO Thoracic back pain ICD-724.5 Inactive Sirisha Gustavo LOO Back pain lumbar ICD-724.2 Inactive Sirisha Gustavo LOO Insect bite ICD-919.4 Inactive Sirisha Gustavo LOO Pruritus ICD-698.9 Inactive Sirisha Gustavo LOO 04/09 Medication List Medication Instructions Start Date Stop Date Generic Name NDC Status Provider Patient Instruction PREDNISONE 20 MG ORAL TABLET two tabs by mouth today, then one tab by mouth days two and three PREDNISONE 32570616817 Active Piotr Daley DO Active ZITHROMAX 250 MG ORAL TABLET Take two (2 ) tablets day one, then one (1) tablet a day for four (4) more days AZITHROMYCIN 91940227084 Active Piotr Daley DO Active PROAIR HFA 108 (90 BASE) MCG/ACT INHALATION AEROSOL SOLUTION 1-2 puffs four times a day as needed ALBUTEROL SULFATE 29519868207 No Longer Active Emelyn Norris Active DOXYCYCLINE HYCLATE 100 MG ORAL CAPSULE 1 cap by mouth BID x10 days DOXYCYCLINE HYCLATE 37700644682 No Longer Active Nella Harris APRN Active WARFARIN SODIUM 5 MG ORAL TABLET 1 tablet daily M-S, 1/2 tab on Heart WARFARIN SODIUM 35921045321 Active Piotr Daley DO Active PREDNISONE 20 MG ORAL TABLET 2 tabs daily for 3 days, 1 tab daily for 3 days, 1/2 tab daily for 2 days PREDNISONE 42564233761 No Longer Active Matthew Rangel MD Active TRAMADOL HCL 50 MG ORAL TABLET 1 po tid with ES Tylenol TRAMADOL HCL 45499936334 No Longer Active Matthew Rangel MD Active GABAPENTIN 300 MG ORAL CAPSULE 1 po q hs for nerve pain GABAPENTIN 13659651045 No Longer Active Matthew Rangel MD Active PREDNISONE 20 MG ORAL TABLET 2 tablets today, then 1 tablet days 2 through 4 PREDNISONE 09816182233 No Longer Active Piotr Daley DO Active AZITHROMYCIN 250 MG ORAL TABLET 2 po qd x 1 day, then 1 po qd x 4 days 07/12 AZITHROMYCIN 74792184555 No Longer Active Piotr Daley DO Active IBUPROFEN 800 MG ORAL TABLET 1 tab every 8 hours as needed 07/12 IBUPROFEN 49555143855 No Longer Active Piotr Daley DO Active LOMOTIL 2.5-0.025 MG ORAL TABLET 1 to 2 four times a day as needed for diarrhea DIPHENOXYLATE-ATROPINE 25672809153 No Longer Active Piotr Daley DO Active WARFARIN SODIUM 4 MG ORAL TABLET 1 tab every evening WARFARIN SODIUM 81889276886 No Longer Active Piotr Daley DO Active PREDNISONE 20 MG ORAL TABLET 1 tablet twice daily for 2 days, then 1 tablet once daily for 2 days PREDNISONE 83446342589 No Longer Active Piotr Daley DO Active PROMETHAZINE HCL 25 MG ORAL TABLET 1 four times a day as needed for nausea/ vomiting PROMETHAZINE HCL 35738139953 No Longer Active Piotr Daley DO Active TUSSIONEX PENNKINETIC ER 10-8 MG/5ML ORAL SUSPENSION EXTENDED RELEASE 5ml po q12hr PRN Cough HYDROCOD POLST-CHLORPHEN POLST 14405235708 No Longer Active Piotr Daley DO Active AZITHROMYCIN 250 MG ORAL TABLET 2 po qd x 1 day, then 1 po qd x 4 days 10/13 AZITHROMYCIN 49262766417 No Longer Active Piotr Daley DO Active AZITHROMYCIN 250 MG ORAL TABLET 2 po qd x 1 day, then 1 po qd x 4 days 05/07 AZITHROMYCIN 07321595112 No Longer Active Piotr Daley DO Active LISINOPRIL-HYDROCHLOROTHIAZIDE 10-12.5 MG ORAL TABLET 1 tab by mouth daily LISINOPRIL-HYDROCHLOROTHIAZIDE 67955557372 Active Piotr Daley DO Active LISINOPRIL 10 MG ORAL TABLET 1/2-1 tab po every other day LISINOPRIL 58402411326 No Longer Active Piotr Daley DO Active VENTOLIN HFA 108 (90 Base) MCG/ACT INHALATION AEROSOL SOLUTION 2 puffs four times a day PRN cough ALBUTEROL SULFATE 49035051388 No Longer Active Piotr Daley DO Active NYSTATIN-TRIAMCINOLONE 128007-1.1 UNIT/GM-% EXTERNAL CREAM Apply to area BID NYSTATIN-TRIAMCINOLONE 97777464530 No Longer Active Alena Chavira DIRECTOR OF TAX SERVICES Active PHISOHEX 3 % LIQD Use Directed HEXACHLOROPHENE 48114308580 No Longer Active Sandra Freedom Active AZITHROMYCIN 250 MG ORAL TABLET 2 po qd x 1 day, then 1 po qd x 4 days 10/21 AZITHROMYCIN 24886497935 No Longer Active Katrina Rinaldi MD PhD Active AZITHROMYCIN 250 MG ORAL TABLET 2 po qd x 1 day, then 1 po qd x 4 days 10/16 AZITHROMYCIN 67742434164 No Longer Active Piotr Daley DO Active AZITHROMYCIN 500 MG INTRAVENOUS SOLUTION RECONSTITUTED 1 po q day AZITHROMYCIN 43847328849 No Longer Active Piotr Daley DO Active NYSTATIN-TRIAMCINOLONE 115285-6.1 UNIT/GM-% EXTERNAL CREAM apply bid NYSTATIN-TRIAMCINOLONE 92310068916 No Longer Active Piotr Daley DO Active IBUPROFEN 800 MG ORAL TABLET 1 po q 8 hours prn pain sparinly IBUPROFEN 90165577175 No Longer Active Piotr Daley DO Active VITAMIN D3 5000 UNIT ORAL CAPSULE 1 po daily CHOLECALCIFEROL 99031808669 Active Piotr Daley DO Active IBUPROFEN 800 MG ORAL TABLET 1 po q 8 hours prn pain sparinly IBUPROFEN 800 MG ORAL TABLET 884407 IBUPROFEN Inactive NYSTATIN-TRIAMCINOLONE 817336-7.1 UNIT/GM-% EXTERNAL CREAM apply bid NYSTATIN-TRIAMCINOLONE 045839-2.1 UNIT/GM-% EXTERNAL CREAM 5555795 NYSTATIN-TRIAMCINOLONE Inactive AZITHROMYCIN 500 MG INTRAVENOUS SOLUTION RECONSTITUTED 1 po q day AZITHROMYCIN 500 MG INTRAVENOUS SOLUTION RECONSTITUTED 44289466613 AZITHROMYCIN Inactive VENTOLIN HFA 108 (90 Base) MCG/ACT INHALATION AEROSOL SOLUTION 2 puffs four times a day PRN cough VENTOLIN HFA 108 (90 Base) MCG/ ACT INHALATION AEROSOL SOLUTION ALBUTEROL SULFATE Inactive LISINOPRIL 10 MG ORAL TABLET 1/2-1 tab po every other day LISINOPRIL 10 MG ORAL TABLET 519959 LISINOPRIL Inactive TUSSIONEX PENNKINETIC ER 10-8 MG/5ML ORAL SUSPENSION EXTENDED RELEASE 5ml po q12hr PRN Cough TUSSIONEX PENNKINETIC ER 10-8 MG/5ML ORAL SUSPENSION EXTENDED RELEASE HYDROCOD POLST-CHLORPHEN POLST Inactive PROMETHAZINE HCL 25 MG ORAL TABLET 1 four times a day as needed for nausea/ vomiting PROMETHAZINE HCL 25 MG ORAL TABLET 277873 PROMETHAZINE HCL Inactive PREDNISONE 20 MG ORAL TABLET 1 tablet twice daily for 2 days, then 1 tablet once daily for 2 days PREDNISONE 20 MG ORAL TABLET 287529 PREDNISONE Inactive WARFARIN SODIUM 4 MG ORAL TABLET 1 tab every evening WARFARIN SODIUM 4 MG ORAL TABLET 078230 WARFARIN SODIUM Inactive LOMOTIL 2.5-0.025 MG ORAL TABLET 1 to 2 four times a day as needed for diarrhea LOMOTIL 2.5-0.025 MG ORAL TABLET 1258258 DIPHENOXYLATE-ATROPINE Inactive IBUPROFEN 800 MG ORAL TABLET 1 tab every 8 hours as needed 07/12 IBUPROFEN 800 MG ORAL TABLET 472539 IBUPROFEN Inactive PREDNISONE 20 MG ORAL TABLET 2 tablets today, then 1 tablet days 2 through 4 PREDNISONE 20 MG ORAL TABLET 243203 PREDNISONE Inactive GABAPENTIN 300 MG ORAL CAPSULE 1 po q hs for nerve pain GABAPENTIN 300 MG ORAL CAPSULE 349260 GABAPENTIN Inactive TRAMADOL HCL 50 MG ORAL TABLET 1 po tid with ES Tylenol TRAMADOL HCL 50 MG ORAL TABLET 562681 TRAMADOL HCL Inactive PROAIR HFA 108 (90 BASE) MCG/ACT INHALATION AEROSOL SOLUTION 1-2 puffs four times a day as needed PROAIR HFA 108 (90 BASE) MCG/ACT INHALATION AEROSOL SOLUTION ALBUTEROL SULFATE Inactive AZITHROMYCIN 250 MG ORAL TABLET 2 po qd x 1 day, then 1 po qd x 4 days 10/16 AZITHROMYCIN 250 MG ORAL TABLET 243831 AZITHROMYCIN Inactive AZITHROMYCIN 250 MG ORAL TABLET 2 po qd x 1 day, then 1 po qd x 4 days 10/21 AZITHROMYCIN 250 MG ORAL TABLET 266374 AZITHROMYCIN Inactive NYSTATIN-TRIAMCINOLONE 176381-4.1 UNIT/GM-% EXTERNAL CREAM Apply to area BID NYSTATIN-TRIAMCINOLONE 536478-8.1 UNIT/GM-% EXTERNAL CREAM 1657869 NYSTATIN-TRIAMCINOLONE Inactive AZITHROMYCIN 250 MG ORAL TABLET 2 po qd x 1 day, then 1 po qd x 4 days 05/07 AZITHROMYCIN 250 MG ORAL TABLET 216218 AZITHROMYCIN Inactive AZITHROMYCIN 250 MG ORAL TABLET 2 po qd x 1 day, then 1 po qd x 4 days 10/13 AZITHROMYCIN 250 MG ORAL TABLET 060744 AZITHROMYCIN Inactive AZITHROMYCIN 250 MG ORAL TABLET 2 po qd x 1 day, then 1 po qd x 4 days 07/12 AZITHROMYCIN 250 MG ORAL TABLET 732709 AZITHROMYCIN Inactive PREDNISONE 20 MG ORAL TABLET 2 tabs daily for 3 days, 1 tab daily for 3 days, 1/2 tab daily for 2 days PREDNISONE 20 MG ORAL TABLET 586285 PREDNISONE Inactive DOXYCYCLINE HYCLATE 100 MG ORAL CAPSULE 1 cap by mouth BID x10 days DOXYCYCLINE HYCLATE 100 MG ORAL CAPSULE 4943405 DOXYCYCLINE HYCLATE Inactive Advance Directives Directive Description Start Date LIVING WILL LIVING WILL Vital Signs Date Name Value Unit Range Description blood pressure, diastolic 67 mm[Hg] BP phan [...] Panel - Chemistry sodium, serum 141 mmol/L 982-122 7275/01/24 potassium, serum 4.3 mmol/L 3.5-5.2 chloride, serum [...] % 11.0-15.0 platelet count 172 THOUSAND/UL 10*3/mm3 420-574 8315/04/12 mean platelet volume 8.6 fL 7.5-12.5 Lab Report: Prothrombin Time - Coagulation prothrombin time (patient) 27.8 SECS s 11.1-13.4 international normalized ratio (INR) 4.2 1.0-3.5 Lab Report: Prothrombin Time Hemochron - Coagulation prothrombin time (patient) 33.0 SECS s 18.9-24.9 Encounters Code Encounter Date Provider Facility CPT-10817 Level 3 Est. Patient 15:56:17 MEN'S BASKETBALL COACH Piotr Daley [facility] CPT-71022 Level 3 Est. Patient 10:34:54 MEN'S BASKETBALL COACH Piotr Daley [facility] CPT-96404 Level 3 Est. Patient 17:10:19 CDT Nella Harris APRN [facility] CPT-67587 Level 3 Est. Patient 10:48:17 [employer]S [employer]ASKETBALL COACH Matthew Rangel MD [facility] CPT-74945 Level 4 Est. Patient 17:15:07 MEN'S BASKETBALL COACH Piotr Daley [facility] CPT-16940 Level 3 Est. Patient 12:46:13 MEN'S BASKETBALL COACH Piotr Daley [facility] CPT-82467 Level 3 Est. Patient 15:14:31 MEN'S BASKETBALL COACH Piotr Daley [facility] CPT-11349 Level 3 Est. Patient 09:20:13 MEN'S BASKETBALL COACH Piotr Daley [facility] CPT-82304 Level 3 Est. Patient 09:49:40 CDT Piotr Daley [facility] CPT-45513 Level 3 Est. Patient 16:28:11 CDT Piotr Daley [facility] CPT-33526 Level 3 Est. Patient 12:41:58 MEN'S BASKETBALL COACH Piotr Daley [facility] CPT-56923 Level 3 Est. Patient 09:21:24 CDT Piotr Daley [facility] CPT-29370 Level 3 Est. Patient 09:21:11 CDT Piotr Daley [facility] CPT-75988 Level 3 Est. Patient 11:16:29 MEN'S BASKETBALL COACH Piotr Daley [facility] CPT-59664 Level 3 Est. Patient 18:40:19 MEN'S BASKETBALL COACH Piotr Daley [facility] CPT-21685 Level 3 Est. Patient 19:30:50 CDT Piotr Daley [facility] CPT-50845 Level 3 Est. Patient 22:06:44 CDT Katrina Rinaldi MD PhD [facility] CPT-25707 Level 3 Est. Patient 14:20:00 CDT Piotr Daley [facility] CPT-39335 Level 3 Est. Patient 14:15:22 MEN'S BASKETBALL COACH Piotr Daley [facility] CPT-45328 Level 3 Est. Patient 20:19:57 MEN'S BASKETBALL COACH Piotr Daley [facility] CPT-12735 Level 3 Est. Patient 16:44:32 CDT Piotr Daley [facility] CPT-51083 Level 3 Est. Patient 08:48:46 MEN'S BASKETBALL COACH Piotr Daley [facility] CPT-69829 Level 3 Est. Patient 21:01:21 CDT Piotr Daley [facility] Procedures Code Procedure Name Date Entry Date Standard Description CPT-G0439 Subsequent Annual Wellness Exam 10:34:52 MEN'S BASKETBALL COACH CPT-11050 BMP - LAB USE ONLY 17:19:11 M[employer]'S BASKETBALL COACH CPT-67027 PT/INR - LAB USE ONLY 17:19:10 [employer]S [employer]ASKET[employer]ALL COACH CPT-16667 Venipuncture Draw Fee 17:19:10 [employer]S [employer]ET[employer]ACH CPT-95316 PT/INR - LAB USE ONLY 08:12:25 [employer]S BASKET[employer]ALL [employer]ACH CPT-84887 Venipuncture Draw Fee 08:12:24 [employer]S [employer]ET[employer]ACH CPT-42881 Venipuncture Draw Fee 11:31:07 [employer]S [employer]ASKET[employer]ALL COACH CPT-86415 TPSA - LAB USE ONLY 11:31:07 [employer]S [employer]ASKET[employer]ACH CPT-87659 PT/INR - LAB USE ONLY 11:31:07 M[employer]'S BASKET[employer]ALL COACH CPT-G0439 Subsequent Annual Wellness Exam 09:59:29 [employer]S BASKET[employer]ALL COACH CPT-42943 Creatinine - LAB USE ONLY 14:37:55 [employer]S [employer]ET[employer]ALL COACH CPT-75902 PT/INR - LAB USE ONLY 14:37:55 [employer]S [employer]ASKET[employer]ALL COACH CPT-94572 Venipuncture Draw Fee 14:37:55 [employer]S BASKETBALL COACH CPT-71589 LS spine comp w obliques - XRAY USE ONLY 12:59:25 [employer]S [employer]ASKET[employer]ALL COACH CPT-66210 PT/INR - LAB USE ONLY 13:49:20 CDT CPT-74966 Venipuncture Draw Fee 13:49:19 CDT CPT-52743 PT/INR - LAB USE ONLY 15:48:49 CDT CPT-07347 Venipuncture Draw Fee 15:48:49 CDT CPT-30867 Venipuncture Draw Fee 11:31:59 CDT CPT-00162 PT/INR - LAB USE ONLY 11:31:59 CDT CPT-76802 Venipuncture Draw Fee 13:29:15 CDT CPT-02223 Thoracolumbar AP/Lat 15:19:19 [employer] CPT-G0438 Initial Annual Wellness Exam 12:18:54 [employer] CPT-69481 Knee 3V 09:57:38 CDT CPT-OV Office Visit 15:45:01 [employer] CPT-52738 Abd compl w upright 17:10:25 CDT
--- OUTSIDE RECORDS SUMMARY | 2018-07-18 07:57 | XMS REPORT | Clinical Summary ---
Author Author Admin, Isidra Organization [place] Address Unknown Phone Unavailable Allergies, Adverse Reactions, [...] Coronary atherosclerosis of unspecified type of vessel, [place] or graft Back pain, thoracic region, left [...] po q hs for nerve pain GABAPENTIN 41628591828 Active Piotr Daley DO Active WARFARIN SODIUM 5 MG TABS 1 tablet daily WARFARIN SODIUM 70372567499 Active Simi Meyers Active TRAMADOL HCL 50 MG TABS 1 po tid with ES Tylenol TRAMADOL HCL 96187356686 Active Piotr Daley DO Active PREDNISONE 20 MG TAB 2 tablets today, then 1 tablet days 2 through 4 PREDNISONE 67071522576 No Longer Active Piotr Daley DO Active AZITHROMYCIN 250 MG TABS 2 po qd x 1 day, then 1 po qd x 4 days AZITHROMYCIN 86960790499 No Longer Active Piotr Daley DO Active IBUPROFEN 800 MG TABS 1 tab every 8 hours as needed IBUPROFEN 65215399425 No Longer Active Piotr Daley DO Active LOMOTIL 2.5-0.025 MG TAB 1 to 2 four times a day as needed for diarrhea 10/13 DIPHENOXYLATE-ATROPINE 76829127647 No Longer Active Piotr Daley DO Active WARFARIN SODIUM 4 MG TABS 1 tab every evening WARFARIN SODIUM 35538144950 No Longer Active Piotr Daley DO Active PREDNISONE 20 MG TAB 1 tablet twice daily for 2 days, then 1 tablet once daily for 2 days PREDNISONE 92303239040 No Longer Active Piotr Daley DO Active PROMETHAZINE HCL 25 MG TABS 1 four times a day as needed for nausea/vomiting PROMETHAZINE HCL 45391056869 No Longer Active Piotr Daley DO Active TUSSIONEX PENNKINETIC ER 10-8 MG/5ML LQCR 5ml po q12hr PRN Cough HYDROCOD POLST-CHLORPHEN POLST 29446769984 No Longer Active Piotr Daley DO Active AZITHROMYCIN 250 MG TABS 2 po qd x 1 day, then 1 po qd x 4 days AZITHROMYCIN 49623202505 No Longer Active Piotr Daley DO Active AZITHROMYCIN 250 MG TABS 2 po qd x 1 day, then 1 po qd x 4 days AZITHROMYCIN 29808060099 No Longer Active Piotr Daley DO Active LISINOPRIL-HYDROCHLOROTHIAZIDE 10-12.5 MG TABS 1 tab by mouth daily LISINOPRIL-HYDROCHLOROTHIAZIDE 11623256908 Active Hilary Ma MA Active LISINOPRIL 10 MG TABS 1/2-1 tab po every other day LISINOPRIL 41342226189 No Longer Active Piotr Daley DO Active VENTOLIN HFA 108 (90 BASE) MCG/ACT AERS 2 puffs four times a day PRN cough ALBUTEROL SULFATE 73044491341 No Longer Active Piotr Daley DO Active NYSTATIN-TRIAMCINOLONE 062480-6.1 UNIT/GM-% CREA Apply to area BID NYSTATIN-TRIAMCINOLONE 32574888472 No Longer Active Alena Chavira TRACK SERVICE PERSON Active PHISOHEX 3 % LIQD Use Directed HEXACHLOROPHENE 00648694534 No Longer Active Sandra [place] Active AZITHROMYCIN 250 MG TABS 2 po qd x 1 day, then 1 po qd x 4 days AZITHROMYCIN 51329581850 No Longer Active Katrina Rinaldi MD PhD Active AZITHROMYCIN 250 MG TABS 2 po qd x 1 day, then 1 po qd x 4 days AZITHROMYCIN 95718533414 No Longer Active Piotr Daley DO Active AZITHROMYCIN 500 MG SOLR 1 po q day AZITHROMYCIN 15230182749 No Longer Active Piotr Daley DO Active NYSTATIN-TRIAMCINOLONE 019579-2.1 UNIT/GM-% CREA apply bid 08/19 NYSTATIN-TRIAMCINOLONE 68128619898 No Longer Active Piotr Daley DO Active IBUPROFEN 800 MG TABS 1 po q 8 hours prn pain sparinly IBUPROFEN 61975355033 No Longer Active Piotr Daley DO Active VITAMIN D3 5000 UNIT CAPS 1 po daily CHOLECALCIFEROL 01675147920 Active Piotr Daley DO Active IBUPROFEN 800 MG TABS 1 po q 8 hours prn pain sparinly IBUPROFEN 800 MG TABS 484835 IBUPROFEN Inactive NYSTATIN-TRIAMCINOLONE 627265-0.1 UNIT/GM-% CREA apply bid 08/19 NYSTATIN-TRIAMCINOLONE 307893-1.1 UNIT/GM-% CREA 9269984 NYSTATIN- TRIAMCINOLONE Inactive AZITHROMYCIN 500 MG SOLR 1 po q day AZITHROMYCIN 500 MG SOLR 42425470566 AZITHROMYCIN Inactive VENTOLIN HFA 108 (90 BASE) MCG/ACT AERS 2 puffs four times a day PRN cough VENTOLIN HFA 108 (90 BASE) MCG/ACT AERS ALBUTEROL SULFATE Inactive LISINOPRIL 10 MG TABS 1/2-1 tab po every other day LISINOPRIL 10 MG TABS 092455 LISINOPRIL Inactive TUSSIONEX PENNKINETIC ER 10-8 MG/5ML LQCR 5ml po q12hr PRN Cough TUSSIONEX PENNKINETIC ER 10-8 MG/5ML LQCR HYDROCOD POLST- CHLORPHEN POLST Inactive PROMETHAZINE HCL 25 MG TABS 1 four times a day as needed for nausea/vomiting PROMETHAZINE HCL 25 MG TABS 403378 PROMETHAZINE HCL Inactive PREDNISONE 20 MG TAB 1 tablet twice daily for 2 days, then 1 tablet once daily for 2 days PREDNISONE 20 MG TAB 569465 PREDNISONE Inactive WARFARIN SODIUM 4 MG TABS 1 tab every evening WARFARIN SODIUM 4 MG TABS 080339 WARFARIN SODIUM Inactive LOMOTIL 2.5-0.025 MG TAB 1 to 2 four times a day as needed for diarrhea 10/13 LOMOTIL 2.5-0.025 MG TAB 9323786 DIPHENOXYLATE-ATROPINE Inactive IBUPROFEN 800 MG TABS 1 tab every 8 hours as needed IBUPROFEN 800 MG TABS 922953 IBUPROFEN Inactive PREDNISONE 20 MG TAB 2 tablets today, then 1 tablet days 2 through 4 PREDNISONE 20 MG TAB 594106 PREDNISONE Inactive AZITHROMYCIN 250 MG TABS 2 po qd x 1 day, then 1 po qd x 4 days AZITHROMYCIN 250 MG TABS 2735174 AZITHROMYCIN Inactive AZITHROMYCIN 250 MG TABS 2 po qd x 1 day, then 1 po qd x 4 days AZITHROMYCIN 250 MG TABS 5593751 AZITHROMYCIN Inactive NYSTATIN-TRIAMCINOLONE 121780-8.1 UNIT/GM-% CREA Apply to area BID NYSTATIN-TRIAMCINOLONE 871360-5.1 UNIT/GM-% CREA 6354099 NYSTATIN-TRIAMCINOLONE Inactive AZITHROMYCIN 250 MG TABS 2 po qd x 1 day, then 1 po qd x 4 days AZITHROMYCIN 250 MG TABS 9735677 AZITHROMYCIN Inactive AZITHROMYCIN 250 MG TABS 2 po qd x 1 day, then 1 po qd x 4 days AZITHROMYCIN 250 MG TABS 3185049 AZITHROMYCIN Inactive AZITHROMYCIN 250 MG TABS 2 po qd x 1 day, then 1 po qd x 4 days AZITHROMYCIN 250 MG TABS 4207605 AZITHROMYCIN Inactive Advance Directives Directive Description Start [...] Panel - Chemistry sodium, serum 141 mmol/L 731-543 7556/06/28 carbon dioxide, venous blood 31.0 mmol/L 21.0-32.0 [...] Negative Encounters Code Encounter Date Provider Facility CPT-44053 Level 4 Est. Patient 17:15:07 RN VASCULAR Piotr Daley [facility] CPT-44358 Level 3 Est. Patient 12:46:13 RN VASCULAR Piotr Daley [facility] CPT-13315 Level 3 Est. Patient 15:14:31 RN VASCULAR Piotr Daley [facility] CPT-11359 Level 3 Est. Patient 09:20:13 RN VASCULAR Piotr Daley [facility] CPT-61081 Level 3 Est. Patient 09:49:40 CDT Piotr Katie Edi [facility] CPT-13895 Level 3 Est. Patient 16:28:11 CDT Piotr Daley [facility] CPT-42063 Level 3 Est. Patient 12:41:58 RN VASCULAR Piotr Daley [facility] CPT-45092 Level 3 Est. Patient 09:21:24 CDT Piotr Daley [facility] CPT-84269 Level 3 Est. Patient 09:21:11 CDT Piotr Daley [facility] CPT-22295 Level 3 Est. Patient 11:16:29 RN VASCULAR Piotr Daley [facility] CPT-29993 Level 3 Est. Patient 18:40:19 RN VASCULAR Piotr Daley [facility] CPT-03581 Level 3 Est. Patient 19:30:50 CDT Piotr Daley [facility] CPT-04621 Level 3 Est. Patient 22:06:44 CDT Katrina Rinaldi MD [facility] CPT-79315 Level 3 Est. Patient 14:20:00 CDT Piotr Daley [facility] CPT-91913 Level 3 Est. Patient 14:15:22 RN VASCULAR Piotr Daley [facility] CPT-13700 Level 3 Est. Patient 20:19:57 RN VASCULAR Piotr Daley [facility] CPT-97217 Level 3 Est. Patient 16:44:32 CDT Piotr Daley [facility] CPT-88735 Level 3 Est. Patient 08:48:46 RN VASCULAR Piotr Daley [facility] CPT-78774 Level 3 Est. Patient 21:01:21 CDT Piotr Daley [facility] Procedures Code Procedure Name Date Entry Date Standard Description CPT-86367 PT/INR - LAB USE ONLY 08:12:25 RN VASCULAR CPT-03302 Venipuncture Draw Fee 08:12:24 RN VASCULAR CPT-56549 Venipuncture Draw Fee 11:31:07 RN VASCULAR CPT-69470 TPSA - LAB USE ONLY 11:31:07 RN VASCULAR CPT-70977 PT/INR - LAB USE ONLY 11:31:07 RN VASCULAR CPT-G0439 [facility] Annual Wellness Exam 09:59:29 RN VASCULAR CPT-66731 Creatinine - LAB USE ONLY 14:37:55 RN VASCULAR CPT-72075 PT/INR - LAB USE ONLY 14:37:55 RN VASCULAR CPT-96479 Venipuncture Draw Fee 14:37:55 RN VASCULAR CPT-60718 LS spine comp w obliques - XRAY USE ONLY 12:59:25 RN VASCULAR CPT-38462 PT/INR - LAB USE ONLY 13:49:20 CDT CPT-62489 Venipuncture Draw Fee 13:49:19 CDT CPT-12846 PT/INR - LAB USE ONLY 15:48:49 CDT CPT-29905 Venipuncture Draw Fee 15:48:49 CDT CPT-99683 Venipuncture Draw Fee 11:31:59 CDT CPT-46328 PT/INR - LAB USE ONLY 11:31:59 CDT CPT-70533 Venipuncture Draw Fee 13:29:15 CDT CPT-37154 Thoracolumbar AP/Lat 15:19:19 RN VASCULAR CPT-G0438 Initial Annual Wellness Exam 12:18:54 RN VASCULAR CPT-57802 Knee 3V 09:57:38 CDT CPT-OV Office Visit 15:45:01 RN VASCULAR CPT-84983 Abd compl w upright 17:10:25 CDT
--- OUTSIDE RECORDS SUMMARY | 2018-07-18 07:58 | XMS REPORT | Clinical Summary ---
Author Author Admin, YONG Organization [facility] Address Unknown Phone Unavailable Allergies, Adverse [...] bronchitis Knee pain, left 719.46 Active Piotr Ktaie Daley DO Pain in joint involving lower leg Health maintenance exam V70.0 Active Adriane Rojo LPN Routine general medical examination at a health care facility Actinic keratoses 702.0 Active Piotr Katie Edi DO Actinic keratosis Personal history of malignant neoplasm of prostate V10.46 Active Alina Meyers SPOOL WINDER Personal history of malignant neoplasm of prostate Coronary artery disease 414.00 Active Alina Meyers SPOOL WINDER Coronary atherosclerosis of unspecified type of vessel, [place] or graft Back pain, thoracic region, left 724.1 Active Piotr Katie Edi DO Pain in thoracic spine FLANK PAIN, RIGHT ICD-789.09 Inactive Katrina Rinaldi MD PhD HEALTH MAINTENANCE EXAM ICD-V70.0 Inactive aKtrina Rinaldi MD PhD BRONCHITIS-ACUTE ICD-466.0 Inactive Piotr Katie Edi LEON SCREENING, COLON CANCER ICD-V76.51 Inactive Katrina Rinaldi MD PhD BRONCHITIS-ACUTE ICD-466.0 Inactive Piotr Daley DO Bronchitis-Acute ICD-466.0 Inactive Piotr Katie Edi LEON Medication List Medication Instructions Start Date Stop Date Generic Name NDC Status Provider Patient Instruction TRAMADOL HCL 50 MG TABS 1 po tid with ES Tylenol TRAMADOL HCL 22286216687 Active Piotr Daley DO Active WARFARIN SODIUM 5 MG TABS 1 tablet daily except for Saturday and Sat/2 tablet. WARFARIN SODIUM 45128957814 Active Piotr Daley DO Active PREDNISONE 20 MG TAB 2 tablets today, then 1 tablet days 2 through 4 PREDNISONE 78555101826 No Longer Active Piotr Daley DO Active AZITHROMYCIN 250 MG TABS 2 po qd x 1 day, then 1 po qd x 4 days AZITHROMYCIN 91339099754 No Longer Active Piotr Daley DO Active IBUPROFEN 800 MG TABS 1 tab every 8 hours as needed IBUPROFEN 76538264363 No Longer Active Piotr Daley DO Active LOMOTIL 2.5-0.025 MG TAB 1 to 2 four times a day as needed for diarrhea 10/13 DIPHENOXYLATE-ATROPINE 79128574339 No Longer Active Piotr Daley DO Active WARFARIN SODIUM 4 MG TABS 1 tab every evening WARFARIN SODIUM 53554050470 No Longer Active Piotr Daley DO Active PREDNISONE 20 MG TAB 1 tablet twice daily for 2 days, then 1 tablet once daily for 2 days PREDNISONE 04493547849 No Longer Active Piotr Daley DO Active PROMETHAZINE HCL 25 MG TABS 1 four times a day as needed for nausea/vomiting PROMETHAZINE HCL 11672053708 No Longer Active Poitr Daley DO Active TUSSIONEX PENNKINETIC ER 10-8 MG/5ML LQCR 5ml po q12hr PRN Cough HYDROCOD POLST-CHLORPHEN POLST 01488867120 No Longer Active Piotr Daley DO Active AZITHROMYCIN 250 MG TABS 2 po qd x 1 day, then 1 po qd x 4 days AZITHROMYCIN 83992095184 No Longer Active Piotr Daley DO Active AZITHROMYCIN 250 MG TABS 2 po qd x 1 day, then 1 po qd x 4 days AZITHROMYCIN 29776771487 No Longer Active Piotr Daley DO Active LISINOPRIL-HYDROCHLOROTHIAZIDE 10-12.5 MG TABS 1 tab by mouth daily LISINOPRIL-HYDROCHLOROTHIAZIDE 65895286821 Active Hilary Ma MA Active LISINOPRIL 10 MG TABS 1/2-1 tab po every other day LISINOPRIL 02905110959 No Longer Active Piotr Daley DO Active VENTOLIN HFA 108 (90 BASE) MCG/ACT AERS 2 puffs four times a day PRN cough ALBUTEROL SULFATE 11278003042 No Longer Active Piotr Daley DO Active NYSTATIN-TRIAMCINOLONE 975308-6.1 UNIT/GM-% CREA Apply to area BID NYSTATIN-TRIAMCINOLONE 61408519072 No Longer Active Alena Jarvis Fan POT ROOM TAPPER Active PHISOHEX 3 % LIQD Use Directed HEXACHLOROPHENE 52395152718 No Longer Active Sandra Burt Active AZITHROMYCIN 250 MG TABS 2 po qd x 1 day, then 1 po qd x 4 days AZITHROMYCIN 30012631733 No Longer Active Katrina Rinaldi MD PhD Active AZITHROMYCIN 250 MG TABS 2 po qd x 1 day, then 1 po qd x 4 days AZITHROMYCIN 06364096229 No Longer Active Piotr Daley DO Active AZITHROMYCIN 500 MG SOLR 1 po q day AZITHROMYCIN 28205467362 No Longer Active Piotr Daley DO Active NYSTATIN-TRIAMCINOLONE 464219-9.1 UNIT/GM-% CREA apply bid 08/19 NYSTATIN-TRIAMCINOLONE 32763857112 No Longer Active Piotr Daley DO Active IBUPROFEN 800 MG TABS 1 po q 8 hours prn pain sparinly IBUPROFEN 64512398316 No Longer Active Piotr Daley DO Active VITAMIN D3 5000 UNIT CAPS 1 po daily CHOLECALCIFEROL 80318725714 Active Piotr Daley DO Active IBUPROFEN 800 MG TABS 1 po q 8 hours prn pain sparinly IBUPROFEN 800 MG TABS 980324 IBUPROFEN Inactive NYSTATIN-TRIAMCINOLONE 596438-3.1 UNIT/GM-% CREA apply bid 08/19 NYSTATIN-TRIAMCINOLONE 555436-1.1 UNIT/GM-% CREA 3502598 NYSTATIN- TRIAMCINOLONE Inactive AZITHROMYCIN 500 MG SOLR 1 po q day AZITHROMYCIN 500 MG SOLR 131314 AZITHROMYCIN Inactive VENTOLIN HFA 108 (90 BASE) MCG/ACT AERS 2 puffs four times a day PRN cough VENTOLIN HFA 108 (90 BASE) MCG/ACT AERS ALBUTEROL SULFATE Inactive LISINOPRIL 10 MG TABS 1/2-1 tab po every other day LISINOPRIL 10 MG TABS 548354 LISINOPRIL Inactive TUSSIONEX PENNKINETIC ER 10-8 MG/5ML LQCR 5ml po q12hr PRN Cough TUSSIONEX PENNKINETIC ER 10-8 MG/5ML LQCR HYDROCOD POLST- CHLORPHEN POLST Inactive PROMETHAZINE HCL 25 MG TABS 1 four times a day as needed for nausea/vomiting PROMETHAZINE HCL 25 MG TABS 283669 PROMETHAZINE HCL Inactive PREDNISONE 20 MG TAB 1 tablet twice daily for 2 days, then 1 tablet once daily for 2 days PREDNISONE 20 MG TAB 630453 PREDNISONE Inactive WARFARIN SODIUM 4 MG TABS 1 tab every evening WARFARIN SODIUM 4 MG TABS 835831 WARFARIN SODIUM Inactive LOMOTIL 2.5-0.025 MG TAB 1 to 2 four times a day as needed for diarrhea 10/13 LOMOTIL 2.5-0.025 MG TAB 8256081 DIPHENOXYLATE-ATROPINE Inactive IBUPROFEN 800 MG TABS 1 tab every 8 hours as needed IBUPROFEN 800 MG TABS 589713 IBUPROFEN Inactive PREDNISONE 20 MG TAB 2 tablets today, then 1 tablet days 2 through 4 PREDNISONE 20 MG TAB 075599 PREDNISONE Inactive AZITHROMYCIN 250 MG TABS 2 po qd x 1 day, then 1 po qd x 4 days AZITHROMYCIN 250 MG TABS 5077798 AZITHROMYCIN Inactive AZITHROMYCIN 250 MG TABS 2 po qd x 1 day, then 1 po qd x 4 days AZITHROMYCIN 250 MG TABS 6988548 AZITHROMYCIN Inactive NYSTATIN-TRIAMCINOLONE 997770-1.1 UNIT/GM-% CREA Apply to area BID NYSTATIN-TRIAMCINOLONE 670454-3.1 UNIT/GM-% CREA 3304208 NYSTATIN-TRIAMCINOLONE Inactive AZITHROMYCIN 250 MG TABS 2 po qd x 1 day, then 1 po qd x 4 days AZITHROMYCIN 250 MG TABS 0398818 AZITHROMYCIN Inactive AZITHROMYCIN 250 MG TABS 2 po qd x 1 day, then 1 po qd x 4 days AZITHROMYCIN 250 MG TABS 5647286 AZITHROMYCIN Inactive AZITHROMYCIN 250 MG TABS 2 po qd x 1 day, then 1 po qd x 4 days AZITHROMYCIN 250 MG TABS 9973673 AZITHROMYCIN Inactive Advance Directives Directive Description Start [...] mg/g mg/g{creat} 0-29 sodium, serum 140 mmol/L 011-949 9068/07/17 potassium, serum 4.2 mmol/L 3.5-5.2 chloride, serum [...] 5.0-8.5 Encounters Code Encounter Date Provider Facility CPT-28727 Level 3 Est. Patient 15:14:31 TRIPE FINISHER Piotr Daley [facility] CPT-80258 Level 3 Est. Patient 09:20:13 TRIPE FINISHER Piotr Daley [facility]-58964 Level 3 Est. Patient 09:49:40 CDT Piotr Daley [facility] CPT-02667 Level 3 Est. Patient 16:28:11 CDT Piotr Daley [facility] CPT-24993 Level 3 Est. Patient 12:41:58 TRIPE FINISHER Piotr Daley [facility] CPT-11191 Level 3 Est. Patient 09:21:24 CDT Piotr Daley [facility] CPT-44281 Level 3 Est. Patient 09:21:11 CDT Piotr Daley [facility]-90016 Level 3 Est. Patient 11:16:29 TRIPE FINISHER Piotr Daley [facility] CPT-57481 Level 3 Est. Patient 18:40:19 TRIPE FINISHER Piotr Daley [facility]-48713 Level 3 Est. Patient 19:30:50 CDT Piotr Daley [facility] CPT-76161 Level 3 Est. Patient 22:06:44 CDT Katrina Rinaldi MD PhD [facility]-08389 Level 3 Est. Patient 14:20:00 CDT Piotr Daley [facility] CPT-79425 Level 3 Est. Patient 14:15:22 TRIPE FINISHER Piotr Katie [facility] CPT-68292 Level 3 Est. Patient 20:19:57 TRIPE FINISHER Piotr Wilson [facility] CPT-77968 Level 3 Est. Patient 16:44:32 CDT Piotr Wilson [facility] CPT-79576 Level 3 Est. Patient 08:48:46 TRIPE FINISHER Piotr Wilson [facility] CPT-56353 Level 3 Est. Patient 21:01:21 CDT Piotr Wilson [facility] Procedures Code Procedure Name Date Entry Date Standard Description CPT-30663 Thoracolumbar AP/Lat 15:19:19 TRIPE FINISHER CPT-G0438 Initial Annual Wellness Exam 12:18:54 TRIPE FINISHER CPT-58774 Knee 3V 09:57:38 CDT CPT-OV Office Visit 15:45:01 TRIPE FINISHER CPT-07142 Abd compl w upright 17:10:25 CDT
--- OUTSIDE RECORDS SUMMARY | 2018-07-18 07:59 | XMS REPORT | Clinical Summary ---
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0 Inactive Piotr aDley DO SCREENING, COLON CANCER ICD-V76.51 Inactive Katrina Rinaldi MD PhD BRONCHITIS-ACUTE ICD-466.0 Inactive Piotr Daley DO Bronchitis-Acute ICD-466.0 Inactive Piotr Daley DO Back pain, thoracic region, left ICD-724.1 Inactive Piotr Daley DO Medication List Medication Instructions Start Date Stop Date Generic Name NDC Status Provider Patient Instruction DOXYCYCLINE HYCLATE 100 MG CAP 1 cap by mouth BID x10 days 10/01 DOXYCYCLINE HYCLATE 19969364766 No Longer Active Nella Steven VIDEO RECORDER MECHANIC Active WARFARIN SODIUM 5 MG TABS 1 tablet daily M-S, 1/2 tab on Heart WARFARIN SODIUM 54819913184 Active Nella [place] VIDEO RECORDER MECHANIC Active PROAIR HFA 108 (90 BASE) MCG/ACT AERS 1-2 puffs four times a day as needed ALBUTEROL SULFATE 73144115689 Active Matthew Rangel MD Active PREDNISONE 20 MG TAB 2 tabs daily for 3 days, 1 tab daily for 3 days, 1/2 tab daily for 2 days PREDNISONE 78718178173 No Longer Active Matthew Rangel MD Active TRAMADOL HCL 50 MG TABS 1 po tid with ES Tylenol TRAMADOL HCL 04569541833 No Longer Active Matthew Rangel MD Active GABAPENTIN 300 MG CAPS 1 po q hs for nerve pain GABAPENTIN 32077049498 No Longer Active Matthew Rangel MD Active PREDNISONE 20 MG TAB 2 tablets today, then 1 tablet days 2 through 4 PREDNISONE 75037302608 No Longer Active Piotr Daley DO Active AZITHROMYCIN 250 MG TABS 2 po qd x 1 day, then 1 po qd x 4 days AZITHROMYCIN 76771077675 No Longer Active Piotr Daley DO Active IBUPROFEN 800 MG TABS 1 tab every 8 hours as needed IBUPROFEN 02380542888 No Longer Active Piotr Daley DO Active LOMOTIL 2.5-0.025 MG TAB 1 to 2 four times a day as needed for diarrhea 10/13 DIPHENOXYLATE-ATROPINE 37157432286 No Longer Active Piotr Daley DO Active WARFARIN SODIUM 4 MG TABS 1 tab every evening WARFARIN SODIUM 94343004695 No Longer Active Piotr Daley DO Active PREDNISONE 20 MG TAB 1 tablet twice daily for 2 days, then 1 tablet once daily for 2 days PREDNISONE 40688212355 No Longer Active Piotr Daley DO Active PROMETHAZINE HCL 25 MG TABS 1 four times a day as needed for nausea/vomiting PROMETHAZINE HCL 02646355684 No Longer Active Piotr Daley DO Active TUSSIONEX PENNKINETIC ER 10-8 MG/5ML LQCR 5ml po q12hr PRN Cough HYDROCOD POLST-CHLORPHEN POLST 30197013469 No Longer Active Piotr Daley DO Active AZITHROMYCIN 250 MG TABS 2 po qd x 1 day, then 1 po qd x 4 days AZITHROMYCIN 10229537129 No Longer Active Piotr Daley DO Active AZITHROMYCIN 250 MG TABS 2 po qd x 1 day, then 1 po qd x 4 days AZITHROMYCIN 03101898195 No Longer Active Piotr Daley DO Active LISINOPRIL-HYDROCHLOROTHIAZIDE 10-12.5 MG TABS 1 tab by mouth daily LISINOPRIL-HYDROCHLOROTHIAZIDE 03963994694 Active Catalina Freitas Active LISINOPRIL 10 MG TABS 1/2-1 tab po every other day LISINOPRIL 16660396736 No Longer Active Piotr W Edi DO Active VENTOLIN HFA 108 (90 BASE) MCG/ACT AERS 2 puffs four times a day PRN cough ALBUTEROL SULFATE 65959028667 No Longer Active Piotr Daley DO Active NYSTATIN-TRIAMCINOLONE 057969-8.1 UNIT/GM-% CREA Apply to area BID NYSTATIN-TRIAMCINOLONE 87388422913 No Longer Active Alena 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 [employer]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 PHISOHEX 3 % LIQD Use Directed HEXACHLOROPHENE 42412335800 No Longer Active Sandra [place] Active AZITHROMYCIN 250 MG TABS 2 po qd x 1 day, then 1 po qd x 4 days AZITHROMYCIN 12817758750 No Longer Active Katrina Rinaldi MD PhD Active AZITHROMYCIN 250 MG TABS 2 po qd x 1 day, then 1 po qd x 4 days AZITHROMYCIN 97611291011 No Longer Active Piotr Daley DO Active AZITHROMYCIN 500 MG SOLR 1 po q day AZITHROMYCIN 71374194829 No Longer Active Piotr Daley DO Active NYSTATIN-TRIAMCINOLONE 825245-2.1 UNIT/GM-% CREA apply bid 08/19 NYSTATIN-TRIAMCINOLONE 97028435608 No Longer Active Piotr Daley DO Active IBUPROFEN 800 MG TABS 1 po q 8 hours prn pain sparinly IBUPROFEN 02044383836 No Longer Active Piotr Daley DO Active VITAMIN D3 5000 UNIT CAPS 1 po daily CHOLECALCIFEROL 79168884667 Active Piotr Daley DO Active IBUPROFEN 800 MG TABS 1 po q 8 hours prn pain sparinly IBUPROFEN 800 MG TABS 305798 IBUPROFEN Inactive NYSTATIN-TRIAMCINOLONE 947141-3.1 UNIT/GM-% CREA apply bid 08/19 NYSTATIN-TRIAMCINOLONE 037288-7.1 UNIT/GM-% CREA 1907221 NYSTATIN- TRIAMCINOLONE Inactive AZITHROMYCIN 500 MG SOLR 1 po q day AZITHROMYCIN 500 MG SOLR 36781217007 AZITHROMYCIN Inactive VENTOLIN HFA 108 (90 BASE) MCG/ACT AERS 2 puffs four times a day PRN cough VENTOLIN HFA 108 (90 BASE) MCG/ACT AERS ALBUTEROL SULFATE Inactive LISINOPRIL 10 MG TABS 1/2-1 tab po every other day LISINOPRIL 10 MG TABS 483195 LISINOPRIL Inactive TUSSIONEX PENNKINETIC ER 10-8 MG/5ML LQCR 5ml po q12hr PRN Cough TUSSIONEX PENNKINETIC ER 10-8 MG/5ML LQCR HYDROCOD POLST- CHLORPHEN POLST Inactive PROMETHAZINE HCL 25 MG TABS 1 four times a day as needed for nausea/vomiting PROMETHAZINE HCL 25 MG TABS 764737 PROMETHAZINE HCL Inactive PREDNISONE 20 MG TAB 1 tablet twice daily for 2 days, then 1 tablet once daily for 2 days PREDNISONE 20 MG TAB 776380 PREDNISONE Inactive WARFARIN SODIUM 4 MG TABS 1 tab every evening WARFARIN SODIUM 4 MG TABS 362146 WARFARIN SODIUM Inactive LOMOTIL 2.5-0.025 MG TAB 1 to 2 four times a day as needed for diarrhea 10/13 LOMOTIL 2.5-0.025 MG TAB 2902851 DIPHENOXYLATE-ATROPINE Inactive IBUPROFEN 800 MG TABS 1 tab every 8 hours as needed IBUPROFEN 800 MG TABS 620604 IBUPROFEN Inactive PREDNISONE 20 MG TAB 2 tablets today, then 1 tablet days 2 through 4 PREDNISONE 20 MG TAB 275775 PREDNISONE Inactive GABAPENTIN 300 MG CAPS 1 po q hs for nerve pain GABAPENTIN 300 MG CAPS 299116 GABAPENTIN Inactive TRAMADOL HCL 50 MG TABS 1 po tid with ES Tylenol TRAMADOL HCL 50 MG TABS 038485 TRAMADOL HCL Inactive AZITHROMYCIN 250 MG TABS 2 po qd x 1 day, then 1 po qd x 4 days AZITHROMYCIN 250 MG TABS 8687502 AZITHROMYCIN Inactive AZITHROMYCIN 250 MG TABS 2 po qd x 1 day, then 1 po qd x 4 days AZITHROMYCIN 250 MG TABS 5601119 AZITHROMYCIN Inactive NYSTATIN-TRIAMCINOLONE 421824-0.1 UNIT/GM-% CREA Apply to area BID NYSTATIN-TRIAMCINOLONE 146516-3.1 UNIT/GM-% CREA 9219588 NYSTATIN-TRIAMCINOLONE Inactive AZITHROMYCIN 250 MG TABS 2 po qd x 1 day, then 1 po qd x 4 days AZITHROMYCIN 250 MG TABS 7375819 AZITHROMYCIN Inactive AZITHROMYCIN 250 MG TABS 2 po qd x 1 day, then 1 po qd x 4 days AZITHROMYCIN 250 MG TABS 6937658 AZITHROMYCIN Inactive AZITHROMYCIN 250 MG TABS 2 po qd x 1 day, then 1 po qd x 4 days AZITHROMYCIN 250 MG TABS 3258784 AZITHROMYCIN Inactive PREDNISONE 20 MG TAB 2 tabs daily for 3 days, 1 tab daily for 3 days, 1/2 tab daily for 2 days PREDNISONE 20 MG TAB 319779 PREDNISONE Inactive DOXYCYCLINE HYCLATE 100 MG CAP 1 cap by mouth BID x10 days 10/01 DOXYCYCLINE HYCLATE 100 MG CAP 4136220 DOXYCYCLINE HYCLATE Inactive Advance Directives Directive Description [...] Lab Report: Basic Metabolic Panel - Chemistry carbon dioxide, venous blood 30.7 mmol/L 21.0-32.0 blood glucose 90 mg/dL 65-110 calcium, serum 8.5 mg/dL 8.5-10.1 urea nitrogen, blood 16 mg/dL 7-18 creatinine, serum 1.09 mg/dL 0.55-1.30 chloride, serum 103 mmol/L 98-107 potassium, serum 4.3 mmol/L 3.5-5.2 sodium, serum 141 mmol/L 136-145 Lab Report: CBC-QUEST - Hematology leukocyte count, blood 5.4 THOUSAND/UL 10*3/mm3 3.8-10.8 mean corpuscular hemoglobin concentration, RBC 33.5 G/DL % 32.0- 36.0 red blood cell distribution width 14.0 % 11.0-15.0 platelet count 172 THOUSAND/UL 10*3/mm3 102-395 8411/04/12 mean platelet volume 8.6 fL 7.5-12.5 erythrocyte (RBC) count 5.13 MILLION/UL 10*6/mm3 4.20-5.80 hemoglobin, blood 14.4 g/dL 13.2-17.1 hematocrit, blood 43.0 % 38.5-50.0 mean corpuscular volume, RBC 83.9 fL 80.0-100.0 mean corpuscular hemoglobin, RBC 28.1 pg 27.0-33.0 Lab Report: Creatinine - Chemistry creatinine, serum [...] ratio (INR) 4.2 1.0-3.5 prothrombin time (patient) 20.8 SECS s 11.1-13.4 international normalized ratio (INR) 2.5 1.0-3.5 prothrombin time (patient) 19.8 SECS s 11.1-13.4 international normalized ratio (INR) 2.3 1.0-3.5 prothrombin time (patient) 23.8 SECS s 11.1-13.4 international normalized ratio (INR) 3.2 1.0-3.5 international normalized ratio (INR) 3.0 1.0-3.5 prothrombin time (patient) 22.8 SECS s 11.1-13.4 prothrombin time (patient) 23.1 SECS s 11.1-13.4 international normalized ratio (INR) 3.0 1.0-3.5 Lab Report: Prothrombin Time Hemochron - Coagulation prothrombin time (patient) 33.0 SECS s 18.9-24.9 Encounters Code Encounter Date Provider Facility CPT-41289 Level 3 Est. Patient 17:10:19 CDT Nella Harris APRN [facility] CPT-26132 Level 3 Est. Patient 10:48:17 PLUSH WEAVER Matthew Rangel MD [facility] CPT-03717 Level 4 Est. Patient 17:15:07 PLUSH WEAVER Piotr Daley [facility] CPT-81445 Level 3 Est. Patient 12:46:13 PLUSH WEAVER Piotr Daley [facility] CPT-93877 Level 3 Est. Patient 15:14:31 PLUSH WEAVER Piotr Daley [facility] CPT-66280 Level 3 Est. Patient 09:20:13 PLUSH WEAVER Piotr Daley [facility] CPT-84594 Level 3 Est. Patient 09:49:40 CDT Piotr Daley [facility] CPT-35222 Level 3 Est. Patient 16:28:11 CDT Piotr Daley [facility] CPT-56095 Level 3 Est. Patient 12:41:58 PLUSH WEAVER Piotr Daley [facility] CPT-72605 Level 3 Est. Patient 09:21:24 CDT Piotr Daley [facility] CPT-23209 Level 3 Est. Patient 09:21:11 CDT Piotr Wilson [facility] CPT-66726 Level 3 Est. Patient 11:16:29 PLUSH WEAVER Piotr Daley [facility] CPT-76618 Level 3 Est. Patient 18:40:19 PLUSH WEAVER Piotr Daley [facility] CPT-15804 Level 3 Est. Patient 19:30:50 CDT Piotr Daley [facility] CPT-04653 Level 3 Est. Patient 22:06:44 CDT Katrina Rinaldi MD PhD [facility] CPT-93375 Level 3 Est. Patient 14:20:00 CDT Piotr Daley [facility] CPT-69764 Level 3 Est. Patient 14:15:22 PLUSH WEAVER Piotr Daley [facility] CPT-26016 Level 3 Est. Patient 20:19:57 PLUSH WEAVER Piotr Daley [facility] CPT-49442 Level 3 Est. Patient 16:44:32 CDT Piotr Daley [facility] CPT-49593 Level 3 Est. Patient 08:48:46 PLUSH WEAVER Piotr Daley [facility] CPT-03415 Level 3 Est. Patient 21:01:21 CDT Piotr Daley [facility] Procedures Code Procedure Name Date Entry Date Standard Description CPT-63140 BMP - LAB USE ONLY 17:19:11 PLUSH WEAVER CPT-67856 PT/INR - LAB USE ONLY 17:19:10 PLUSH WEAVER CPT-55912 Venipuncture Draw Fee 17:19:10 PLUSH WEAVER CPT-76241 PT/INR - LAB USE ONLY 08:12:25 PLUSH WEAVER CPT-95507 Venipuncture Draw Fee 08:12:24 PLUSH WEAVER CPT-17760 Venipuncture Draw Fee 11:31:07 PLUSH WEAVER CPT-54843 TPSA - LAB USE ONLY 11:31:07 PLUSH WEAVER CPT-25907 PT/INR - LAB USE ONLY 11:31:07 PLUSH WEAVER CPT-G0439 Subsequent Annual Wellness Exam 09:59:29 PLUSH WEAVER CPT-63262 Creatinine - LAB USE ONLY 14:37:55 PLUSH WEAVER CPT-03584 PT/INR - LAB USE ONLY 14:37:55 PLUSH WEAVER CPT-81318 Venipuncture Draw Fee 14:37:55 PLUSH WEAVER CPT-00835 LS spine comp w obliques - XRAY USE ONLY 12:59:25 PLUSH WEAVER CPT-42811 PT/INR - LAB USE ONLY 13:49:20 CDT CPT-82632 Venipuncture Draw Fee 13:49:19 CDT CPT-70160 PT/INR - LAB USE ONLY 15:48:49 CDT CPT-93209 Venipuncture Draw Fee 15:48:49 CDT CPT-08507 Venipuncture Draw Fee 11:31:59 CDT CPT-10439 PT/INR - LAB USE ONLY 11:31:59 CDT CPT-48051 Venipuncture Draw Fee 13:29:15 CDT CPT-20266 Thoracolumbar AP/Lat 15:19:19 PLUSH WEAVER CPT-G0438 Initial Annual Wellness Exam 12:18:54 PLUSH WEAVER CPT-78780 Knee 3V 09:57:38 CDT CPT-OV Office Visit 15:45:01 PLUSH WEAVER CPT-02589 Abd compl w upright 17:10:25 CDT
--- OUTSIDE RECORDS SUMMARY | 2018-07-18 08:00 | XMS REPORT | Clinical Summary ---
Author Author Admin, [employer] Organization [facility] Address Unknown Phone Unavailable Allergies, Adverse Reactions, Alerts Allergy Name Reaction Description Start Date Severity Status Provider PENICILLINS Mild No Longer Active iPotr Daley DO PENICILLINS Critical No Longer Active [...] neoplasm of prostate V10.46 Active Alina Meyers [employer] Personal history of malignant neoplasm of prostate Coronary artery disease 414.00 Active Alina Meyers APRN Coronary atherosclerosis of unspecified type of vessel, chilkoot or graft Back pain, thoracic region, left [...] THROMBOPHLEBITIS, LEG, 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 Inactive Sirisha Chen [employer]BED STITCHER DEEP VENOUS THROMBOPHLEBITIS, LEG, 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 Inactive Sirisha Chen [employer]ITCHER Seborrheic keratosis ICD-702.19 Inactive Sirisha Chen [employer]ITCHER Bronchitis-Acute ICD-466.0 Inactive Piotr Daley DO Leg pain, right ICD-729.5 Inactive Sirisha Chen [employer]ITCHER Right leg pain ICD-729.5 Inactive Sirisha Chne [employer]BED STITCHER Bronchitis-Acute ICD-466.0 Inactive Sirisha Chen [employer]BED STITCHER Knee pain, left ICD-719.46 Inactive Sirisha Chen [employer] STITCHER Actinic keratoses ICD-702.0 Inactive Sirisha Chen [employer] STITCHER Back pain, thoracic region, left ICD-724.1 Inactive Piotr Daley DO Thoracic back pain ICD-724.5 Inactive Sirisha Chen [employer]ITCHER Back pain lumbar ICD-724.2 Inactive Sirisha Chen [employer]ITCHER Insect bite ICD-919.4 Inactive Sirisha Chen [employer]ITCHER Pruritus ICD-698.9 Inactive Sirisha Chen [employer]ATBED STITCHER 04/09 Medication List Medication Instructions Start Date Stop Date Generic Name NDC Status Provider Patient Instruction WARFARIN SODIUM 5 MG ORAL TABLET 1 tablet daily M, T, T, F, Sa, 1/2 tab on W, Heart WARFARIN SODIUM 78026877527 Active Sirisha Gustavo LOO Active TESSALON PERLES 100 MG ORAL CAPSULE 1-2 tablet by mouth 3 times daily 04/16 BENZONATATE 08036463553 Active Piotr Daley DO Active PREDNISONE 10 MG ORAL TABLET 1 tablet by mouth daily PREDNISONE 11207915110 Active Piotr Daley DO Active PREDNISONE 20 MG ORAL TABLET two tabs by mouth today, then one tab by mouth days two and three PREDNISONE 86607671760 No Longer Active Piotr Daley DO Active CYCLOBENZAPRINE HCL 10 MG ORAL TABLET 1 tablet by mouth three times daily as needed for muscle spasm/pain CYCLOBENZAPRINE HCL 80215075431 Active Piotr Daley DO Active ZITHROMAX 250 MG ORAL TABLET Take two (2 ) tablets day one, then one (1) tablet a day for four (4) more days AZITHROMYCIN 23290715127 No Longer Active Piotr Daley DO Active PROAIR HFA 108 (90 BASE) MCG/ACT INHALATION AEROSOL SOLUTION 1-2 puffs four times a day as needed ALBUTEROL SULFATE 43048616411 No Longer Active Emelyn Norris Active DOXYCYCLINE HYCLATE 100 MG ORAL CAPSULE 1 cap by mouth BID x10 days DOXYCYCLINE HYCLATE 46134484334 No Longer Active Nella Harris APRN Active PREDNISONE 20 MG ORAL TABLET 2 tabs daily for 3 days, 1 tab daily for 3 days, 1/2 tab daily for 2 days PREDNISONE 59607013162 No Longer Active Matthew Rangel MD Active TRAMADOL HCL 50 MG ORAL TABLET 1 po tid with ES Tylenol TRAMADOL HCL 15476672640 No Longer Active Matthew Rangel MD Active GABAPENTIN 300 MG ORAL CAPSULE 1 po q hs for nerve pain GABAPENTIN 99327795648 No Longer Active Matthew Rangel MD Active PREDNISONE 20 MG ORAL TABLET 2 tablets today, then 1 tablet days 2 through 4 PREDNISONE 56271920497 No Longer Active Piotr Daley DO Active AZITHROMYCIN 250 MG ORAL TABLET 2 po qd x 1 day, then 1 po qd x 4 days 07/12 AZITHROMYCIN 67948436245 No Longer Active Piotr Daley DO Active IBUPROFEN 800 MG ORAL TABLET 1 tab every 8 hours as needed 07/12 IBUPROFEN 34675378388 No Longer Active Piotr Daley DO Active LOMOTIL 2.5-0.025 MG ORAL TABLET 1 to 2 four times a day as needed for diarrhea DIPHENOXYLATE-ATROPINE 19754073178 No Longer Active Piotr Daley DO Active WARFARIN SODIUM 4 MG ORAL TABLET 1 tab every evening WARFARIN SODIUM 62111853026 No Longer Active Piotr Daley DO Active PREDNISONE 20 MG ORAL TABLET 1 tablet twice daily for 2 days, then 1 tablet once daily for 2 days PREDNISONE 61118560767 No Longer Active Piotr Daley DO Active PROMETHAZINE HCL 25 MG ORAL TABLET 1 four times a day as needed for nausea/ vomiting PROMETHAZINE HCL 56433683808 No Longer Active Piotr Daley DO Active TUSSIONEX PENNKINETIC ER 10-8 MG/5ML ORAL SUSPENSION EXTENDED RELEASE 5ml po q12hr PRN Cough HYDROCOD POLST-CHLORPHEN POLST 63871454675 No Longer Active Piotr Daley DO Active AZITHROMYCIN 250 MG ORAL TABLET 2 po qd x 1 day, then 1 po qd x 4 days 10/13 AZITHROMYCIN 20592468779 No Longer Active Piotr Daley DO Active AZITHROMYCIN 250 MG ORAL TABLET 2 po qd x 1 day, then 1 po qd x 4 days 05/07 AZITHROMYCIN 11448964242 No Longer Active Piotr Daley DO Active LISINOPRIL-HYDROCHLOROTHIAZIDE 10-12.5 MG ORAL TABLET 1 tab by mouth daily LISINOPRIL-HYDROCHLOROTHIAZIDE 08095803490 Active Piotr Daley DO Active LISINOPRIL 10 MG ORAL TABLET 1/2-1 tab po every other day LISINOPRIL 02340849707 No Longer Active Piotr Daley DO Active VENTOLIN HFA 108 (90 Base) MCG/ACT INHALATION AEROSOL SOLUTION 2 puffs four times a day PRN cough ALBUTEROL SULFATE 01856863863 No Longer Active Piotr Daley DO Active NYSTATIN-TRIAMCINOLONE 536820-9.1 UNIT/GM-% EXTERNAL CREAM Apply to area BID NYSTATIN-TRIAMCINOLONE 30996867552 No Longer Active Alena Chavira [employer]ATBED STITCHER Active PHISOHEX 3 % LIQD Use Directed HEXACHLOROPHENE 36040393152 No Longer Active Sandra Salinas Active AZITHROMYCIN 250 MG ORAL TABLET 2 po qd x 1 day, then 1 po qd x 4 days 10/21 AZITHROMYCIN 13738834357 No Longer Active Katrina Rinaldi MD PhD Active AZITHROMYCIN 250 MG ORAL TABLET 2 po qd x 1 day, then 1 po qd x 4 days 10/16 AZITHROMYCIN 67447167470 No Longer Active Piotr Daley DO Active AZITHROMYCIN 500 MG INTRAVENOUS SOLUTION RECONSTITUTED 1 po q day AZITHROMYCIN 92585473931 No Longer Active Piotr Daley DO Active NYSTATIN-TRIAMCINOLONE 788961-6.1 UNIT/GM-% EXTERNAL CREAM apply bid NYSTATIN-TRIAMCINOLONE 25173211383 No Longer Active Piotr Daley DO Active IBUPROFEN 800 MG ORAL TABLET 1 po q 8 hours prn pain sparinly IBUPROFEN 80001735462 No Longer Active Piotr Daley DO Active VITAMIN D3 5000 UNIT ORAL CAPSULE 1 po daily CHOLECALCIFEROL 67324478700 Active Piotr Daley DO Active IBUPROFEN 800 MG ORAL TABLET 1 po q 8 hours prn pain sparinly IBUPROFEN 800 MG ORAL TABLET 268350 IBUPROFEN Inactive NYSTATIN-TRIAMCINOLONE 952006-0.1 UNIT/GM-% EXTERNAL CREAM apply bid NYSTATIN-TRIAMCINOLONE 765975-3.1 UNIT/GM-% EXTERNAL CREAM 8147239 NYSTATIN-TRIAMCINOLONE Inactive AZITHROMYCIN 500 MG INTRAVENOUS SOLUTION RECONSTITUTED 1 po q day AZITHROMYCIN 500 MG INTRAVENOUS SOLUTION RECONSTITUTED 13710746541 AZITHROMYCIN Inactive VENTOLIN HFA 108 (90 Base) MCG/ACT INHALATION AEROSOL SOLUTION 2 puffs four times a day PRN cough VENTOLIN HFA 108 (90 Base) MCG/ ACT INHALATION AEROSOL SOLUTION ALBUTEROL SULFATE Inactive LISINOPRIL 10 MG ORAL TABLET 1/2-1 tab po every other day LISINOPRIL 10 MG ORAL TABLET 843073 LISINOPRIL Inactive TUSSIONEX PENNKINETIC ER 10-8 MG/5ML ORAL SUSPENSION EXTENDED RELEASE 5ml po q12hr PRN Cough TUSSIONEX PENNKINETIC ER 10-8 MG/5ML ORAL SUSPENSION EXTENDED RELEASE HYDROCOD POLST-CHLORPHEN POLST Inactive PROMETHAZINE HCL 25 MG ORAL TABLET 1 four times a day as needed for nausea/ vomiting PROMETHAZINE HCL 25 MG ORAL TABLET 276721 PROMETHAZINE HCL Inactive PREDNISONE 20 MG ORAL TABLET 1 tablet twice daily for 2 days, then 1 tablet once daily for 2 days PREDNISONE 20 MG ORAL TABLET 089265 PREDNISONE Inactive WARFARIN SODIUM 4 MG ORAL TABLET 1 tab every evening WARFARIN SODIUM 4 MG ORAL TABLET 627603 WARFARIN SODIUM Inactive LOMOTIL 2.5-0.025 MG ORAL TABLET 1 to 2 four times a day as needed for diarrhea LOMOTIL 2.5-0.025 MG ORAL TABLET 5178560 DIPHENOXYLATE-ATROPINE Inactive IBUPROFEN 800 MG ORAL TABLET 1 tab every 8 hours as needed 07/12 IBUPROFEN 800 MG ORAL TABLET 482368 IBUPROFEN Inactive PREDNISONE 20 MG ORAL TABLET 2 tablets today, then 1 tablet days 2 through 4 PREDNISONE 20 MG ORAL TABLET 067037 PREDNISONE Inactive GABAPENTIN 300 MG ORAL CAPSULE 1 po q hs for nerve pain GABAPENTIN 300 MG ORAL CAPSULE 303109 GABAPENTIN Inactive TRAMADOL HCL 50 MG ORAL TABLET 1 po tid with ES Tylenol TRAMADOL HCL 50 MG ORAL TABLET 802311 TRAMADOL HCL Inactive PROAIR HFA 108 (90 BASE) MCG/ACT INHALATION AEROSOL SOLUTION 1-2 puffs four times a day as needed PROAIR HFA 108 (90 BASE) MCG/ACT INHALATION AEROSOL SOLUTION ALBUTEROL SULFATE Inactive PREDNISONE 20 MG ORAL TABLET two tabs by mouth today, then one tab by mouth days two and three PREDNISONE 20 MG ORAL TABLET 402359 PREDNISONE Inactive AZITHROMYCIN 250 MG ORAL TABLET 2 po qd x 1 day, then 1 po qd x 4 days 10/16 AZITHROMYCIN 250 MG ORAL TABLET 975991 AZITHROMYCIN Inactive AZITHROMYCIN 250 MG ORAL TABLET 2 po qd x 1 day, then 1 po qd x 4 days 10/21 AZITHROMYCIN 250 MG ORAL TABLET 005442 AZITHROMYCIN Inactive NYSTATIN-TRIAMCINOLONE 067652-9.1 UNIT/GM-% EXTERNAL CREAM Apply to area BID NYSTATIN-TRIAMCINOLONE 038522-9.1 UNIT/GM-% EXTERNAL CREAM 2621575 NYSTATIN-TRIAMCINOLONE Inactive AZITHROMYCIN 250 MG ORAL TABLET 2 po qd x 1 day, then 1 po qd x 4 days 05/07 AZITHROMYCIN 250 MG ORAL TABLET 057915 AZITHROMYCIN Inactive AZITHROMYCIN 250 MG ORAL TABLET 2 po qd x 1 day, then 1 po qd x 4 days 10/13 AZITHROMYCIN 250 MG ORAL TABLET 028444 AZITHROMYCIN Inactive AZITHROMYCIN 250 MG ORAL TABLET 2 po qd x 1 day, then 1 po qd x 4 days 07/12 AZITHROMYCIN 250 MG ORAL TABLET 234980 AZITHROMYCIN Inactive PREDNISONE 20 MG ORAL TABLET 2 tabs daily for 3 days, 1 tab daily for 3 days, 1/2 tab daily for 2 days PREDNISONE 20 MG ORAL TABLET 335109 PREDNISONE Inactive DOXYCYCLINE HYCLATE 100 MG ORAL CAPSULE 1 cap by mouth BID x10 days DOXYCYCLINE HYCLATE 100 MG ORAL CAPSULE 7706273 DOXYCYCLINE HYCLATE Inactive ZITHROMAX 250 MG ORAL TABLET Take two (2 ) tablets day one, then one (1) tablet a day for four (4) more days ZITHROMAX 250 MG ORAL TABLET 882635 AZITHROMYCIN Inactive Advance Directives Directive Description Start [...] % 11.0-15.0 platelet count 172 THOUSAND/UL 10*3/mm3 810-865 9601/04/12 mean platelet volume 8.6 fL 7.5-12.5 Lab Report: Prothrombin Time Hemochron - Coagulation prothrombin time (patient) 33.0 SECS s 18.9-24.9 Encounters Code Encounter Date Provider Facility CPT-39326 Level 3 Est. Patient 12:33:59 [employer]UM[employer] Piotr Katie Edi [facility] CPT-04205 Level 3 Est. Patient 15:56:17 [employer] Piotr Wilson Edi [facility] CPT-98979 Level 3 Est. Patient 10:34:54 [employer] Piotr Wilson Edi [facility] CPT-62519 Level 3 Est. Patient 17:10:19 CDT Nella Harris APRN [facility] CPT-10601 Level 3 Est. Patient 10:48:17 [employer] Matthew Rangel MD [facility] CPT-90512 Level 4 Est. Patient 17:15:07 [employer] Piotr Wilson Edi [facility] CPT-59491 Level 3 Est. Patient 12:46:13 [employer] Piotr Wilson Edi [facility] CPT-21142 Level 3 Est. Patient 15:14:31 [employer] Piotr Daley [facility] CPT-83245 Level 3 Est. Patient 09:20:13 [employer] Piotr Wilson Edi [facility] CPT-42226 Level 3 Est. Patient 09:49:40 CDT Piotr Wilson [facility] CPT-80569 Level 3 Est. Patient 16:28:11 CDT Piotr Daley [facility] CPT-02159 Level 3 Est. Patient 12:41:58 [employer] Piotr Daley [facility] CPT-55049 Level 3 Est. Patient 09:21:24 CDT Piotr Wilson [facility] CPT-63230 Level 3 Est. Patient 09:21:11 CDT Piotr Wilson [facility] CPT-93361 Level 3 Est. Patient 11:16:29 [employer] Piotr Daley [facility] CPT-08297 Level 3 Est. Patient 18:40:19 [employer] Piotr Daley [facility] CPT-53712 Level 3 Est. Patient 19:30:50 CDT Piotr Daley [facility] CPT-40480 Level 3 Est. Patient 22:06:44 CDT Katrina Rinaldi MD [facility] CPT-72456 Level 3 Est. Patient 14:20:00 CDT Piotr Daley [facility] CPT-18774 Level 3 Est. Patient 14:15:22 [employer] Piotr Daley [facility] CPT-00524 Level 3 Est. Patient 20:19:57 [employer] Piotr Daley [facility] CPT-47151 Level 3 Est. Patient 16:44:32 CDT Piotr Daley [facility] CPT-97787 Level 3 Est. Patient 08:48:46 [employer] Piotr Daley [facility] CPT-86849 Level 3 Est. Patient 21:01:21 CDT Piotr Daley [facility] Procedures Code Procedure Name Date Entry Date Standard Description CPT-31686 LS spine comp w obliques - XRAY USE ONLY 14:52:26 [employer] CPT-66986 Chest, 2 views 12:55:58 [employer] CPT-G0439 [facility] Annual Wellness Exam 10:34:52 [employer] CPT-73154 BMP - LAB USE ONLY 17:19:11 [employer] CPT-98168 PT/INR - LAB USE ONLY 17:19:10 [employer] CPT-61745 Venipuncture Draw Fee 17:19:10 [employer] CPT-98465 PT/INR - LAB USE ONLY 08:12:25 [employer] CPT-80202 Venipuncture Draw Fee 08:12:24 [employer] CPT-96017 Venipuncture Draw Fee 11:31:07 [employer] CPT-48795 TPSA - LAB USE ONLY 11:31:07 [employer]UMBER [employer] CPT-13875 PT/INR - LAB USE ONLY 11:31:07 [employer] CPT-G0439 Subsequent Annual Wellness Exam 09:59:29 [employer] CPT-20634 Creatinine - LAB USE ONLY 14:37:55 [employer] CPT-23422 PT/INR - LAB USE ONLY 14:37:55 [employer] CPT-66597 Venipuncture Draw Fee 14:37:55 [employer] CPT-70446 LS spine comp w obliques - XRAY USE ONLY 12:59:25 [employer] CPT-21745 PT/INR - LAB USE ONLY 13:49:20 CDT CPT-25856 Venipuncture Draw Fee 13:49:19 CDT CPT-99542 PT/INR - LAB USE ONLY 15:48:49 CDT CPT-06980 Venipuncture Draw Fee 15:48:49 CDT CPT-25663 Venipuncture Draw Fee 11:31:59 CDT CPT-74981 PT/INR - LAB USE ONLY 11:31:59 CDT CPT-71692 Venipuncture Draw Fee 13:29:15 CDT CPT-80443 Thoracolumbar AP/Lat 15:19:19 [employer] CPT-G0438 Initial Annual Wellness Exam 12:18:54 [employer] CPT-06442 Knee 3V 09:57:38 CDT CPT-OV Office Visit 15:45:01 [employer] CPT-30655 Abd compl w upright 17:10:25 CDT
--- OUTSIDE RECORDS SUMMARY | 2018-07-18 08:01 | XMS REPORT | Clinical Summary ---
Author Author Admin, Isidra Organization [employer] Address Unknown Phone Unavailable Allergies, Adverse Reactions, [...] care facility Actinic keratoses 702.0 Active Piotr aKtie Edi DO Actinic keratosis Personal history of malignant neoplasm of prostate V10.46 Active Alina Meyers APRN Personal history of malignant neoplasm of prostate Coronary artery disease 414.00 Active Alina Meyers APRN Coronary atherosclerosis of unspecified type of vessel, lower [place] or graft Back pain, thoracic region, left [...] times a day as needed ALBUTEROL SULFATE 23598367620 Active Matthew Rangel MD Active PREDNISONE 20 MG TAB 2 tabs daily for 3 days, 1 tab daily for 3 days, 1/2 tab daily for 2 days PREDNISONE 79682948362 No Longer Active Matthew Rangel MD Active TRAMADOL HCL 50 MG TABS 1 po tid with ES Tylenol TRAMADOL HCL 40407346219 No Longer Active Matthew Rangel MD Active GABAPENTIN 300 MG CAPS 1 po q hs for nerve pain GABAPENTIN 32493425823 No Longer Active Matthew Rangel MD Active WARFARIN SODIUM 5 MG TABS 1 tablet daily WARFARIN SODIUM 06245985671 Active Piotr Daley DO Active PREDNISONE 20 MG TAB 2 tablets today, then 1 tablet days 2 through 4 PREDNISONE 31450754373 No Longer Active Piotr Daley DO Active AZITHROMYCIN 250 MG TABS 2 po qd x 1 day, then 1 po qd x 4 days AZITHROMYCIN 79780132067 No Longer Active Piotr Daley DO Active IBUPROFEN 800 MG TABS 1 tab every 8 hours as needed IBUPROFEN 06535961055 No Longer Active Piotr Daley DO Active LOMOTIL 2.5-0.025 MG TAB 1 to 2 four times a day as needed for diarrhea 10/13 DIPHENOXYLATE-ATROPINE 38130557986 No Longer Active Piotr Daley DO Active WARFARIN SODIUM 4 MG TABS 1 tab every evening WARFARIN SODIUM 21503655716 No Longer Active Piotr Daley DO Active PREDNISONE 20 MG TAB 1 tablet twice daily for 2 days, then 1 tablet once daily for 2 days PREDNISONE 36291593864 No Longer Active Piotr Daley DO Active PROMETHAZINE HCL 25 MG TABS 1 four times a day as needed for nausea/vomiting PROMETHAZINE HCL 52441446074 No Longer Active Piotr Daley DO Active TUSSIONEX PENNKINETIC ER 10-8 MG/5ML LQCR 5ml po q12hr PRN Cough HYDROCOD POLST-CHLORPHEN POLST 68293387359 No Longer Active Piotr Daley DO Active AZITHROMYCIN 250 MG TABS 2 po qd x 1 day, then 1 po qd x 4 days AZITHROMYCIN 10527487744 No Longer Active Piotr Daley DO Active AZITHROMYCIN 250 MG TABS 2 po qd x 1 day, then 1 po qd x 4 days AZITHROMYCIN 16559854980 No Longer Active Piotr Daley DO Active LISINOPRIL-HYDROCHLOROTHIAZIDE 10-12.5 MG TABS 1 tab by mouth daily LISINOPRIL-HYDROCHLOROTHIAZIDE 22129832147 Active Catalina Freitas Active LISINOPRIL 10 MG TABS 1/2-1 tab po every other day LISINOPRIL 78200973218 No Longer Active Piotr Daley DO Active VENTOLIN HFA 108 (90 BASE) MCG/ACT AERS 2 puffs four times a day PRN cough ALBUTEROL SULFATE 56924589707 No Longer Active Piotr Daley DO Active NYSTATIN-TRIAMCINOLONE 922036-9.1 UNIT/GM-% CREA Apply to area BID NYSTATIN-TRIAMCINOLONE 50586373046 No Longer Active Alena Chavira MOBILITY DEVELOPER Active PHISOHEX 3 % LIQD Use Directed HEXACHLOROPHENE 69191533821 No Longer Active Sandra Dentarger Active AZITHROMYCIN 250 MG TABS 2 po qd x 1 day, then 1 po qd x 4 days AZITHROMYCIN 05652316075 No Longer Active Katrina Rinaldi MD PhD Active AZITHROMYCIN 250 MG TABS 2 po qd x 1 day, then 1 po qd x 4 days AZITHROMYCIN 78609596719 No Longer Active Piotr Daley DO Active AZITHROMYCIN 500 MG SOLR 1 po q day AZITHROMYCIN 62661824353 No Longer Active Piotr Daley DO Active NYSTATIN-TRIAMCINOLONE 635698-8.1 UNIT/GM-% CREA apply bid 08/19 NYSTATIN-TRIAMCINOLONE 73055277815 No Longer Active Piotr Daley DO Active IBUPROFEN 800 MG TABS 1 po q 8 hours prn pain sparinly IBUPROFEN 37900507451 No Longer Active Piotr Daley DO Active VITAMIN D3 5000 UNIT CAPS 1 po daily CHOLECALCIFEROL 70013125211 Active Piotr Daley DO Active IBUPROFEN 800 MG TABS 1 po q 8 hours prn pain sparinly IBUPROFEN 800 MG TABS 467653 IBUPROFEN Inactive NYSTATIN-TRIAMCINOLONE 890698-0.1 UNIT/GM-% CREA apply bid 08/19 NYSTATIN-TRIAMCINOLONE 609272-3.1 UNIT/GM-% CREA 9172709 NYSTATIN- TRIAMCINOLONE Inactive AZITHROMYCIN 500 MG SOLR 1 po q day AZITHROMYCIN 500 MG SOLR 78968343861 AZITHROMYCIN Inactive VENTOLIN HFA 108 (90 BASE) MCG/ACT AERS 2 puffs four times a day PRN cough VENTOLIN HFA 108 (90 BASE) MCG/ACT AERS ALBUTEROL SULFATE Inactive LISINOPRIL 10 MG TABS 1/2-1 tab po every other day LISINOPRIL 10 MG TABS 793167 LISINOPRIL Inactive TUSSIONEX PENNKINETIC ER 10-8 MG/5ML LQCR 5ml po q12hr PRN Cough TUSSIONEX PENNKINETIC ER 10-8 MG/5ML LQCR HYDROCOD POLST- CHLORPHEN POLST Inactive PROMETHAZINE HCL 25 MG TABS 1 four times a day as needed for nausea/vomiting PROMETHAZINE HCL 25 MG TABS 499408 PROMETHAZINE HCL Inactive PREDNISONE 20 MG TAB 1 tablet twice daily for 2 days, then 1 tablet once daily for 2 days PREDNISONE 20 MG TAB 878193 PREDNISONE Inactive WARFARIN SODIUM 4 MG TABS 1 tab every evening WARFARIN SODIUM 4 MG TABS 325534 WARFARIN SODIUM Inactive LOMOTIL 2.5-0.025 MG TAB 1 to 2 four times a day as needed for diarrhea 10/13 LOMOTIL 2.5-0.025 MG TAB 1477969 DIPHENOXYLATE-ATROPINE Inactive IBUPROFEN 800 MG TABS 1 tab every 8 hours as needed IBUPROFEN 800 MG TABS 367741 IBUPROFEN Inactive PREDNISONE 20 MG TAB 2 tablets today, then 1 tablet days 2 through 4 PREDNISONE 20 MG TAB 435154 PREDNISONE Inactive GABAPENTIN 300 MG CAPS 1 po q hs for nerve pain GABAPENTIN 300 MG CAPS 460836 GABAPENTIN Inactive TRAMADOL HCL 50 MG TABS 1 po tid with ES Tylenol TRAMADOL HCL 50 MG TABS 861018 TRAMADOL HCL Inactive AZITHROMYCIN 250 MG TABS 2 po qd x 1 day, then 1 po qd x 4 days AZITHROMYCIN 250 MG TABS 7889163 AZITHROMYCIN Inactive AZITHROMYCIN 250 MG TABS 2 po qd x 1 day, then 1 po qd x 4 days AZITHROMYCIN 250 MG TABS 6582446 AZITHROMYCIN Inactive NYSTATIN-TRIAMCINOLONE 522712-3.1 UNIT/GM-% CREA Apply to area BID NYSTATIN-TRIAMCINOLONE 093613-7.1 UNIT/GM-% CREA 2837282 NYSTATIN-TRIAMCINOLONE Inactive AZITHROMYCIN 250 MG TABS 2 po qd x 1 day, then 1 po qd x 4 days AZITHROMYCIN 250 MG TABS 2666062 AZITHROMYCIN Inactive AZITHROMYCIN 250 MG TABS 2 po qd x 1 day, then 1 po qd x 4 days AZITHROMYCIN 250 MG TABS 1478795 AZITHROMYCIN Inactive AZITHROMYCIN 250 MG TABS 2 po qd x 1 day, then 1 po qd x 4 days AZITHROMYCIN 250 MG TABS 2193956 AZITHROMYCIN Inactive PREDNISONE 20 MG TAB 2 tabs daily for 3 days, 1 tab daily for 3 days, 1/2 tab daily for 2 days PREDNISONE 20 MG TAB 563615 PREDNISONE Inactive Advance Directives Directive Description Start [...] Panel - Chemistry sodium, serum 141 mmol/L 650-366 9187/01/24 potassium, serum 4.3 mmol/L 3.5-5.2 chloride, serum 103 mmol/L 98-107 carbon dioxide, venous blood 30.7 mmol/L 21.0-32.0 blood glucose 90 mg/dL 65-110 calcium, serum 8.5 mg/dL 8.5-10.1 urea nitrogen, blood 16 mg/dL 7-18 creatinine, serum 1.09 mg/dL 0.55-1.30 Lab Report: Comp. Metabolic Panel - Chemistry sodium, serum 141 mmol/L 796-284 4435/06/28 carbon dioxide, venous blood 31.0 mmol/L 21.0-32.0 [...] 1.0-3.5 Encounters Code Encounter Date Provider Facility CPT-43782 Level 3 Est. Patient 10:48:17 SOURCING INTERN Matthew Rangel MD [facility] CPT-04373 Level 4 Est. Patient 17:15:07 SOURCING INTERN Piotr Daley [facility] CPT-94744 Level 3 Est. Patient 12:46:13 SOURCING INTERN Piotr Daley [facility] CPT-71896 Level 3 Est. Patient 15:14:31 SOURCING INTERN Piotr Daley [facility] CPT-76534 Level 3 Est. Patient 09:20:13 SOURCING INTERN Piotr Daley [facility] CPT-91459 Level 3 Est. Patient 09:49:40 CDT Piotr [facility] CPT-09744 Level 3 Est. Patient 16:28:11 CDT Piotr Daley [facility] CPT-43312 Level 3 Est. Patient 12:41:58 SOURCING INTERN Piotr Daley [facility] CPT-73567 Level 3 Est. Patient 09:21:24 CDT Piotr Daley [facility] CPT-77951 Level 3 Est. Patient 09:21:11 CDT Piotr [facility] CPT-05556 Level 3 Est. Patient 11:16:29 SOURCING INTERN Piotr Daley [facility] CPT-98547 Level 3 Est. Patient 18:40:19 SOURCING INTERN Piotr Daley [facility] CPT-29355 Level 3 Est. Patient 19:30:50 CDT Piotr Wilson [facility] CPT-62505 Level 3 Est. Patient 22:06:44 CDT [facility] CPT-03735 Level 3 Est. Patient 14:20:00 CDT Piotr Daley DO [facility] CPT-98954 Level 3 Est. Patient 14:15:22 SOURCING INTERN Piotr Daley [facility] CPT-24288 Level 3 Est. Patient 20:19:57 SOURCING INTERN Piotr Daley DO [facility] CPT-29752 Level 3 Est. Patient 16:44:32 CDT Piotr Daley [facility] CPT-51812 Level 3 Est. Patient 08:48:46 SOURCING INTERN Piotr Daley [facility] CPT-32986 Level 3 Est. Patient 21:01:21 CDT Piotr Daley [facility] Procedures Code Procedure Name Date Entry Date Standard Description CPT-61042 BMP - LAB USE ONLY 17:19:11 [facility]CING INTERN CPT-48853 PT/INR - LAB USE ONLY 17:19:10 [facility] CPT-88435 Venipuncture Draw Fee 17:19:10 [facility]N CPT-71905 PT/INR - LAB USE ONLY 08:12:25 [facility]N CPT-25798 Venipuncture Draw Fee 08:12:24 [employer]CING INTERN CPT-41692 Venipuncture Draw Fee 11:31:07 [facility] INTERN CPT-64011 TPSA - LAB USE ONLY 11:31:07 SOURCING INTERN CPT-87106 PT/INR - LAB USE ONLY 11:31:07 SOURCING INTERN CPT-G0439 [facility] Annual Wellness Exam 09:59:29 SOURCING INTERN CPT-48563 Creatinine - LAB USE ONLY 14:37:55 [facility]CING INTERN CPT-19964 PT/INR - LAB USE ONLY 14:37:55 SOURCING INTERN CPT-23439 Venipuncture Draw Fee 14:37:55 SOURCING INTERN CPT-29160 LS spine comp w obliques - XRAY USE ONLY 12:59:25 SOURCING INTERN CPT-28985 PT/INR - LAB USE ONLY 13:49:20 CDT CPT-53909 Venipuncture Draw Fee 13:49:19 CDT CPT-68937 PT/INR - LAB USE ONLY 15:48:49 CDT CPT-65541 Venipuncture Draw Fee 15:48:49 CDT CPT-23472 Venipuncture Draw Fee 11:31:59 CDT CPT-72544 PT/INR - LAB USE ONLY 11:31:59 CDT CPT-84740 Venipuncture Draw Fee 13:29:15 CDT CPT-50896 Thoracolumbar AP/Lat 15:19:19 SOURCING INTERN CPT-G0438 Initial Annual Wellness Exam 12:18:54 SOURCING INTERN CPT-91642 Knee 3V 09:57:38 CDT CPT-OV Office Visit 15:45:01 SOURCING INTERN CPT-74250 Abd compl w upright 17:10:25 CDT
--- OUTSIDE RECORDS SUMMARY | 2018-07-18 08:01 | XMS REPORT | Clinical Summary ---
Author Author Admin, E Organization [employer] Address Unknown Phone Unavailable Allergies, Adverse Reactions, [...] neoplasm of prostate V10.46 Active Alina Meyers QUALITY ASSURANCE GROUP LEADER Personal history of malignant neoplasm of prostate Coronary artery disease 414.00 Active Alina Luigi QUALITY ASSURANCE GROUP LEADER Coronary atherosclerosis of unspecified type of vessel, [place] or graft Back pain, thoracic region, left 724.1 Inactive Piotr Katie Edi DO Pain in thoracic spine Thoracic back pain 724.5 Active Piotr W Edi DO Backache, unspecified Back pain lumbar 724.2 Active Piotr Daley DO Lumbago Peripheral neuropathy, lower extremity, left 356.9 Active 02/19 Piotr W Edi DO Unspecified hereditary and idiopathic peripheral neuropathy Insect bite 919.4 Active Nella Harris QUALITY ASSURANCE GROUP LEADER Insect bite, nonvenomous, of other, multiple, and unspecified sites, without mention of infection Pruritus 698.9 Active Nella Harris QUALITY ASSURANCE GROUP LEADER Unspecified pruritic disorder Wellness exam V70.0 Active [...] times a day as needed ALBUTEROL SULFATE 25705061180 No Longer Active Emelyn Norris Active DOXYCYCLINE HYCLATE 100 MG ORAL CAPSULE 1 cap by mouth BID x10 days DOXYCYCLINE HYCLATE 13219353690 No Longer Active Nella Harris APRN Active WARFARIN SODIUM 5 MG ORAL TABLET 1 tablet daily M-S, 1/2 tab on Heart WARFARIN SODIUM 33170834946 Active Piotr Daley DO Active PREDNISONE 20 MG ORAL TABLET 2 tabs daily for 3 days, 1 tab daily for 3 days, 1/2 tab daily for 2 days PREDNISONE 82546638100 No Longer Active Matthew Rangel MD Active TRAMADOL HCL 50 MG ORAL TABLET 1 po tid with ES Tylenol TRAMADOL HCL 66031462099 No Longer Active Matthew Rangel MD Active GABAPENTIN 300 MG ORAL CAPSULE 1 po q hs for nerve pain GABAPENTIN 35713837480 No Longer Active Matthew Rangel MD Active PREDNISONE 20 MG ORAL TABLET 2 tablets today, then 1 tablet days 2 through 4 PREDNISONE 60284354575 No Longer Active Piotr Daley DO Active AZITHROMYCIN 250 MG ORAL TABLET 2 po qd x 1 day, then 1 po qd x 4 days 07/12 AZITHROMYCIN 43249921717 No Longer Active Piotr Daley DO Active IBUPROFEN 800 MG ORAL TABLET 1 tab every 8 hours as needed 07/12 IBUPROFEN 16358090053 No Longer Active Piotr Daley DO Active LOMOTIL 2.5-0.025 MG ORAL TABLET 1 to 2 four times a day as needed for diarrhea DIPHENOXYLATE-ATROPINE 06159079318 No Longer Active Piotr Daley DO Active WARFARIN SODIUM 4 MG ORAL TABLET 1 tab every evening WARFARIN SODIUM 06672101853 No Longer Active Piotr Daley DO Active PREDNISONE 20 MG ORAL TABLET 1 tablet twice daily for 2 days, then 1 tablet once daily for 2 days PREDNISONE 59090031610 No Longer Active Piotr Daley DO Active PROMETHAZINE HCL 25 MG ORAL TABLET 1 four times a day as needed for nausea/ vomiting PROMETHAZINE HCL 00160359660 No Longer Active Piotr Daley DO Active TUSSIONEX PENNKINETIC ER 10-8 MG/5ML ORAL SUSPENSION EXTENDED RELEASE 5ml po q12hr PRN Cough HYDROCOD POLST-CHLORPHEN POLST 75048044190 No Longer Active Piotr Daley DO Active AZITHROMYCIN 250 MG ORAL TABLET 2 po qd x 1 day, then 1 po qd x 4 days 10/13 AZITHROMYCIN 42598750347 No Longer Active Piotr Daley DO Active AZITHROMYCIN 250 MG ORAL TABLET 2 po qd x 1 day, then 1 po qd x 4 days 05/07 AZITHROMYCIN 80129597391 No Longer Active Piotr Daley DO Active LISINOPRIL-HYDROCHLOROTHIAZIDE 10-12.5 MG ORAL TABLET 1 tab by mouth daily LISINOPRIL-HYDROCHLOROTHIAZIDE 27163329543 Active Piotr Daley DO Active LISINOPRIL 10 MG ORAL TABLET 1/2-1 tab po every other day LISINOPRIL 85837680767 No Longer Active Piotr Daley DO Active VENTOLIN HFA 108 (90 Base) MCG/ACT INHALATION AEROSOL SOLUTION 2 puffs four times a day PRN cough ALBUTEROL SULFATE 53487949404 No Longer Active Piotr Daley DO Active NYSTATIN-TRIAMCINOLONE 267948-4.1 UNIT/GM-% EXTERNAL CREAM Apply to area BID NYSTATIN-TRIAMCINOLONE 65796289815 No Longer Active Alena Chavira RESEARCH COMPUTING SPECIALIST Active PHISOHEX 3 % LIQD Use Directed HEXACHLOROPHENE 80007369426 No Longer Active Sandra Almond Active AZITHROMYCIN 250 MG ORAL TABLET 2 po qd x 1 day, then 1 po qd x 4 days 10/21 AZITHROMYCIN 99140330298 No Longer Active Katrina Rinaldi MD PhD Active AZITHROMYCIN 250 MG ORAL TABLET 2 po qd x 1 day, then 1 po qd x 4 days 10/16 AZITHROMYCIN 31939035458 No Longer Active Piotr Daley DO Active AZITHROMYCIN 500 MG INTRAVENOUS SOLUTION RECONSTITUTED 1 po q day AZITHROMYCIN 74479045675 No Longer Active Piotr Daley DO Active NYSTATIN-TRIAMCINOLONE 847149-6.1 UNIT/GM-% EXTERNAL CREAM apply bid NYSTATIN-TRIAMCINOLONE 78636683100 No Longer Active Piotr Daley DO Active IBUPROFEN 800 MG ORAL TABLET 1 po q 8 hours prn pain sparinly IBUPROFEN 34726546947 No Longer Active Piotr Daley DO Active VITAMIN D3 5000 UNIT ORAL CAPSULE 1 po daily CHOLECALCIFEROL 10323325805 Active Piotr Daley DO Active IBUPROFEN 800 MG ORAL TABLET 1 po q 8 hours prn pain sparinly IBUPROFEN 800 MG ORAL TABLET 556204 IBUPROFEN Inactive NYSTATIN-TRIAMCINOLONE 341447-4.1 UNIT/GM-% EXTERNAL CREAM apply bid NYSTATIN-TRIAMCINOLONE 635615-8.1 UNIT/GM-% EXTERNAL CREAM 4933420 NYSTATIN-TRIAMCINOLONE Inactive AZITHROMYCIN 500 MG INTRAVENOUS SOLUTION RECONSTITUTED 1 po q day AZITHROMYCIN 500 MG INTRAVENOUS SOLUTION RECONSTITUTED 52189566285 AZITHROMYCIN Inactive VENTOLIN HFA 108 (90 Base) MCG/ACT INHALATION AEROSOL SOLUTION 2 puffs four times a day PRN cough VENTOLIN HFA 108 (90 Base) MCG/ ACT INHALATION AEROSOL SOLUTION ALBUTEROL SULFATE Inactive LISINOPRIL 10 MG ORAL TABLET 1/2-1 tab po every other day LISINOPRIL 10 MG ORAL TABLET 202412 LISINOPRIL Inactive TUSSIONEX PENNKINETIC ER 10-8 MG/5ML ORAL SUSPENSION EXTENDED RELEASE 5ml po q12hr PRN Cough TUSSIONEX PENNKINETIC ER 10-8 MG/5ML ORAL SUSPENSION EXTENDED RELEASE HYDROCOD POLST-CHLORPHEN POLST Inactive PROMETHAZINE HCL 25 MG ORAL TABLET 1 four times a day as needed for nausea/ vomiting PROMETHAZINE HCL 25 MG ORAL TABLET 483381 PROMETHAZINE HCL Inactive PREDNISONE 20 MG ORAL TABLET 1 tablet twice daily for 2 days, then 1 tablet once daily for 2 days PREDNISONE 20 MG ORAL TABLET 477315 PREDNISONE Inactive WARFARIN SODIUM 4 MG ORAL TABLET 1 tab every evening WARFARIN SODIUM 4 MG ORAL TABLET 162992 WARFARIN SODIUM Inactive LOMOTIL 2.5-0.025 MG ORAL TABLET 1 to 2 four times a day as needed for diarrhea LOMOTIL 2.5-0.025 MG ORAL TABLET 4509548 DIPHENOXYLATE-ATROPINE Inactive IBUPROFEN 800 MG ORAL TABLET 1 tab every 8 hours as needed 07/12 IBUPROFEN 800 MG ORAL TABLET 843992 IBUPROFEN Inactive PREDNISONE 20 MG ORAL TABLET 2 tablets today, then 1 tablet days 2 through 4 PREDNISONE 20 MG ORAL TABLET 402070 PREDNISONE Inactive GABAPENTIN 300 MG ORAL CAPSULE 1 po q hs for nerve pain GABAPENTIN 300 MG ORAL CAPSULE 480086 GABAPENTIN Inactive TRAMADOL HCL 50 MG ORAL TABLET 1 po tid with ES Tylenol TRAMADOL HCL 50 MG ORAL TABLET 259409 TRAMADOL HCL Inactive PROAIR HFA 108 (90 BASE) MCG/ACT INHALATION AEROSOL SOLUTION 1-2 puffs four times a day as needed PROAIR HFA 108 (90 BASE) MCG/ACT INHALATION AEROSOL SOLUTION ALBUTEROL SULFATE Inactive AZITHROMYCIN 250 MG ORAL TABLET 2 po qd x 1 day, then 1 po qd x 4 days 10/16 AZITHROMYCIN 250 MG ORAL TABLET 951779 AZITHROMYCIN Inactive AZITHROMYCIN 250 MG ORAL TABLET 2 po qd x 1 day, then 1 po qd x 4 days 10/21 AZITHROMYCIN 250 MG ORAL TABLET 315579 AZITHROMYCIN Inactive NYSTATIN-TRIAMCINOLONE 284877-5.1 UNIT/GM-% EXTERNAL CREAM Apply to area BID NYSTATIN-TRIAMCINOLONE 251553-4.1 UNIT/GM-% EXTERNAL CREAM 5956999 NYSTATIN-TRIAMCINOLONE Inactive AZITHROMYCIN 250 MG ORAL TABLET 2 po qd x 1 day, then 1 po qd x 4 days 05/07 AZITHROMYCIN 250 MG ORAL TABLET 314506 AZITHROMYCIN Inactive AZITHROMYCIN 250 MG ORAL TABLET 2 po qd x 1 day, then 1 po qd x 4 days 10/13 AZITHROMYCIN 250 MG ORAL TABLET 561788 AZITHROMYCIN Inactive AZITHROMYCIN 250 MG ORAL TABLET 2 po qd x 1 day, then 1 po qd x 4 days 07/12 AZITHROMYCIN 250 MG ORAL TABLET 964283 AZITHROMYCIN Inactive PREDNISONE 20 MG ORAL TABLET 2 tabs daily for 3 days, 1 tab daily for 3 days, 1/2 tab daily for 2 days PREDNISONE 20 MG ORAL TABLET 546670 PREDNISONE Inactive DOXYCYCLINE HYCLATE 100 MG ORAL CAPSULE 1 cap by mouth BID x10 days DOXYCYCLINE HYCLATE 100 MG ORAL CAPSULE 7627068 DOXYCYCLINE HYCLATE Inactive Advance Directives Directive Description [...] Panel - Chemistry sodium, serum 141 mmol/L 134-604 6081/01/24 potassium, serum 4.3 mmol/L 3.5-5.2 chloride, serum [...] % 11.0-15.0 platelet count 172 THOUSAND/UL 10*3/mm3 292-296 3490/04/12 mean platelet volume 8.6 fL 7.5-12.5 Lab [...] 18.9-24.9 Encounters Code Encounter Date Provider Facility CPT-24700 Level 3 Est. Patient 10:34:54 COMPRESSOR STATIONS SUPERINTENDENT Piotr Wilson Edi [facility] CPT-07003 Level 3 Est. Patient 17:10:19 CDT Nella Harris APRN [facility] CPT-33248 Level 3 Est. Patient 10:48:17 COMPRESSOR STATIONS SUPERINTENDENT Matthew Rangel MD [facility] CPT-56592 Level 4 Est. Patient 17:15:07 COMPRESSOR STATIONS SUPERINTENDENT Piotr Wilson Edi [facility] CPT-60726 Level 3 Est. Patient 12:46:13 COMPRESSOR STATIONS SUPERINTENDENT Piotr Wilson Edi [facility] CPT-04127 Level 3 Est. Patient 15:14:31 COMPRESSOR STATIONS SUPERINTENDENT Piotr Wilson Edi [facility] CPT-02744 Level 3 Est. Patient 09:20:13 COMPRESSOR STATIONS SUPERINTENDENT Piotr Wilson Edi [facility] CPT-75062 Level 3 Est. Patient 09:49:40 CDT Piotr Daley [facility] CPT-83767 Level 3 Est. Patient 16:28:11 CDT Piotr Daley [facility] CPT-56954 Level 3 Est. Patient 12:41:58 COMPRESSOR STATIONS SUPERINTENDENT Piotr Daley [facility] CPT-71362 Level 3 Est. Patient 09:21:24 CDT Piotr Wilson Edi [facility] CPT-56014 Level 3 Est. Patient 09:21:11 CDT Piotr Katie Daley [facility] CPT-51649 Level 3 Est. Patient 11:16:29 COMPRESSOR STATIONS SUPERINTENDENT Piotr Daley [facility] CPT-38094 Level 3 Est. Patient 18:40:19 COMPRESSOR STATIONS SUPERINTENDENT Piotr Daley [facility] CPT-23587 Level 3 Est. Patient 19:30:50 CDT Piotr Daley [facility] CPT-85903 Level 3 Est. Patient 22:06:44 CDT Katrina Rinaldi [facility] CPT-16374 Level 3 Est. Patient 14:20:00 CDT Piotr Daley [facility] CPT-55969 Level 3 Est. Patient 14:15:22 COMPRESSOR STATIONS SUPERINTENDENT Piotr Daley [facility] CPT-16675 Level 3 Est. Patient 20:19:57 COMPRESSOR STATIONS SUPERINTENDENT Piotr Daley [facility] CPT-07830 Level 3 Est. Patient 16:44:32 CDT Piotr Daley [facility] CPT-73019 Level 3 Est. Patient 08:48:46 COMPRESSOR STATIONS SUPERINTENDENT Piotr Daley [facility] CPT-44219 Level 3 Est. Patient 21:01:21 CDT Piotr Daley [facility] Procedures Code Procedure Name Date Entry Date Standard Description CPT-G0439 Subsequent Annual Wellness Exam 10:34:52 [facility] CPT-55199 BMP - LAB USE ONLY 17:19:11 COMPRESSOR STATIONS SUPERINTENDENT CPT-11960 PT/INR - LAB USE ONLY 17:19:10 [facility] CPT-39803 Venipuncture Draw Fee 17:19:10 COMPRESSOR STATIONS SUPERINTENDENT CPT-35760 PT/INR - LAB USE ONLY 08:12:25 [facility] CPT-84110 Venipuncture Draw Fee 08:12:24 COMPRESSOR STATIONS SUPERINTENDENT CPT-20498 Venipuncture Draw Fee 11:31:07 COMPRESSOR STATIONS SUPERINTENDENT CPT-96540 TPSA - LAB USE ONLY 11:31:07 COMPRESSOR STATIONS SUPERINTENDENT CPT-10151 PT/INR - LAB USE ONLY 11:31:07 [facility] CPT-G0439 Subsequent Annual Wellness Exam 09:59:29 COMPRESSOR STATIONS SUPERINTENDENT CPT-13834 Creatinine - LAB USE ONLY 14:37:55 COMPRESSOR STATIONS SUPERINTENDENT CPT-54063 PT/INR - LAB USE ONLY 14:37:55 COMPRESSOR STATIONS SUPERINTENDENT CPT-03730 Venipuncture Draw Fee 14:37:55 COMPRESSOR STATIONS SUPERINTENDENT CPT-55404 LS spine comp w obliques - XRAY USE ONLY 12:59:25 COMPRESSOR STATIONS SUPERINTENDENT CPT-98112 PT/INR - LAB USE ONLY 13:49:20 CDT CPT-88637 Venipuncture Draw Fee 13:49:19 CDT CPT-78204 PT/INR - LAB USE ONLY 15:48:49 CDT CPT-66612 Venipuncture Draw Fee 15:48:49 CDT CPT-03513 Venipuncture Draw Fee 11:31:59 CDT CPT-26130 PT/INR - LAB USE ONLY 11:31:59 CDT CPT-21841 Venipuncture Draw Fee 13:29:15 CDT CPT-78982 Thoracolumbar AP/Lat 15:19:19 COMPRESSOR STATIONS SUPERINTENDENT CPT-G0438 Initial Annual Wellness Exam 12:18:54 COMPRESSOR STATIONS SUPERINTENDENT CPT-11565 Knee 3V 09:57:38 CDT CPT-OV Office Visit 15:45:01 COMPRESSOR STATIONS SUPERINTENDENT CPT-31425 Abd compl w upright 17:10:25 CDT
--- OUTSIDE RECORDS SUMMARY | 2018-07-18 08:02 | XMS REPORT | Clinical Summary ---
Author Author Admin, [place] [employer] Organization [employer] Address Unknown Phone Unavailable Allergies, Adverse Reactions, [...] neoplasm of prostate V10.46 Active Alina Meyers ORGANIZATIONAL DEVELOPMENT CONSULTANT Personal history of malignant neoplasm of prostate Coronary artery disease 414.00 Active Alina Meyers APRN Coronary atherosclerosis of unspecified type of vessel, [place] or graft Back pain, thoracic region, left [...] Knee pain, left ICD-719.46 Inactive Sirisha Chen SPEECH CLINICIAN Actinic keratoses ICD-702.0 Inactive Sirisha Chen SPEECH CLINICIAN Back pain, thoracic region, left ICD-724.1 Inactive Piotr Daley DO Thoracic back pain ICD-724.5 Inactive Sirisha Chen SPEECH CLINICIAN Back pain lumbar ICD-724.2 Inactive Sirisha Chen SPEECH CLINICIAN Insect bite ICD-919.4 Inactive Sirisha Chen SPEECH CLINICIAN Pruritus ICD-698.9 Inactive Sirisha Chen SPEECH CLINICIAN 04/09 Bronchitis-Acute ICD-466.0 Inactive Sirisha Chen SPEECH CLINICIAN Dyspnea ICD-786.09 Inactive Sirisha Chen SPEECH CLINICIAN 05/09 Medication List Medication Instructions Start Date Stop Date Generic Name NDC Status Provider Patient Instruction WARFARIN SODIUM 4 MG ORAL TABLET 1 tablet by mouth daily except 2mg on Saturday and Saturday WARFARIN SODIUM 95179326332 Active Anahy Loja Active MELOXICAM 15 MG ORAL TABLET 1 po q day for pain with food MELOXICAM 77306532745 Active Piotr Daley DO Active PREDNISONE 10 MG ORAL TABLET 1 tablet by mouth daily PREDNISONE 38955410100 No Longer Active Emelyn Norris Active TESSALON PERLES 100 MG ORAL CAPSULE 1-2 tablet by mouth 3 times daily 04/16 BENZONATATE 06929551156 No Longer Active Emelyn Norris Active PREDNISONE 20 MG ORAL TABLET two tabs by mouth today, then one tab by mouth days two and three PREDNISONE 27358027069 No Longer Active Piotr Daley DO Active CYCLOBENZAPRINE HCL 10 MG ORAL TABLET 1 tablet by mouth three times daily as needed for muscle spasm/pain CYCLOBENZAPRINE HCL 17667344072 Active Sirisha Chen LPN Active ZITHROMAX 250 MG ORAL TABLET Take two (2 ) tablets day one, then one (1) tablet a day for four (4) more days AZITHROMYCIN 79025921190 No Longer Active Piotr Daley DO Active PROAIR HFA 108 (90 BASE) MCG/ACT INHALATION AEROSOL SOLUTION 1-2 puffs four times a day as needed ALBUTEROL SULFATE 08569225632 No Longer Active Emelyn Norris Active DOXYCYCLINE HYCLATE 100 MG ORAL CAPSULE 1 cap by mouth BID x10 days DOXYCYCLINE HYCLATE 80433120760 No Longer Active Nella Harris APRN Active PREDNISONE 20 MG ORAL TABLET 2 tabs daily for 3 days, 1 tab daily for 3 days, 1/2 tab daily for 2 days PREDNISONE 06951050221 No Longer Active Matthew Rangel MD Active TRAMADOL HCL 50 MG ORAL TABLET 1 po tid with ES Tylenol TRAMADOL HCL 67067973338 No Longer Active Matthew Rangel MD Active GABAPENTIN 300 MG ORAL CAPSULE 1 po q hs for nerve pain GABAPENTIN 62653174524 No Longer Active Matthew Rangel MD Active PREDNISONE 20 MG ORAL TABLET 2 tablets today, then 1 tablet days 2 through 4 PREDNISONE 17181763641 No Longer Active Piotr Daley DO Active AZITHROMYCIN 250 MG ORAL TABLET 2 po qd x 1 day, then 1 po qd x 4 days 07/12 AZITHROMYCIN 34783833296 No Longer Active Piotr Daley DO Active IBUPROFEN 800 MG ORAL TABLET 1 tab every 8 hours as needed 07/12 IBUPROFEN 51866503844 No Longer Active Piotr Daley DO Active LOMOTIL 2.5-0.025 MG ORAL TABLET 1 to 2 four times a day as needed for diarrhea DIPHENOXYLATE-ATROPINE 16336451898 No Longer Active Piotr Daley DO Active WARFARIN SODIUM 4 MG ORAL TABLET 1 tab every evening WARFARIN SODIUM 08149397614 No Longer Active Piotr Daley DO Active PREDNISONE 20 MG ORAL TABLET 1 tablet twice daily for 2 days, then 1 tablet once daily for 2 days PREDNISONE 78967386817 No Longer Active Piotr Daley DO Active PROMETHAZINE HCL 25 MG ORAL TABLET 1 four times a day as needed for nausea/ vomiting PROMETHAZINE HCL 61205078290 No Longer Active Piotr Daley DO Active TUSSIONEX PENNKINETIC ER 10-8 MG/5ML ORAL SUSPENSION EXTENDED RELEASE 5ml po q12hr PRN Cough HYDROCOD POLST-CHLORPHEN POLST 23102161298 No Longer Active Piotr Dalye DO Active AZITHROMYCIN 250 MG ORAL TABLET 2 po qd x 1 day, then 1 po qd x 4 days 10/13 AZITHROMYCIN 56988354219 No Longer Active Piotr Daley DO Active AZITHROMYCIN 250 MG ORAL TABLET 2 po qd x 1 day, then 1 po qd x 4 days 05/07 AZITHROMYCIN 42855401610 No Longer Active Piotr Daley DO Active LISINOPRIL-HYDROCHLOROTHIAZIDE 10-12.5 MG ORAL TABLET 1 tab by mouth daily LISINOPRIL-HYDROCHLOROTHIAZIDE 16071295804 Active Piotr Daley DO Active LISINOPRIL 10 MG ORAL TABLET 1/2-1 tab po every other day LISINOPRIL 51826145272 No Longer Active Piotr Daley DO Active VENTOLIN HFA 108 (90 Base) MCG/ACT INHALATION AEROSOL SOLUTION 2 puffs four times a day PRN cough ALBUTEROL SULFATE 60861928965 No Longer Active Piotr Daley DO Active NYSTATIN-TRIAMCINOLONE 771575-0.1 UNIT/GM-% EXTERNAL CREAM Apply to area BID NYSTATIN-TRIAMCINOLONE 99348333531 No Longer Active Alena Chavira SPEECH CLINICIAN Active PHISOHEX 3 % LIQD Use Directed HEXACHLOROPHENE 32934617450 No Longer Active Sandra Oxbow Active AZITHROMYCIN 250 MG ORAL TABLET 2 po qd x 1 day, then 1 po qd x 4 days 10/21 AZITHROMYCIN 19248154401 No Longer Active Katrina Rinaldi MD PhD Active AZITHROMYCIN 250 MG ORAL TABLET 2 po qd x 1 day, then 1 po qd x 4 days 10/16 AZITHROMYCIN 53564211683 No Longer Active Piotr Daley DO Active AZITHROMYCIN 500 MG INTRAVENOUS SOLUTION RECONSTITUTED 1 po q day AZITHROMYCIN 38702149321 No Longer Active Piotr Daley DO Active NYSTATIN-TRIAMCINOLONE 162079-7.1 UNIT/GM-% EXTERNAL CREAM apply bid NYSTATIN-TRIAMCINOLONE 52156833769 No Longer Active Piotr Daley DO Active IBUPROFEN 800 MG ORAL TABLET 1 po q 8 hours prn pain sparinly IBUPROFEN 93399177074 No Longer Active Piotr Daley DO Active VITAMIN D3 5000 UNIT ORAL CAPSULE 1 po daily CHOLECALCIFEROL 07173672525 Active Piotr Daley DO Active IBUPROFEN 800 MG ORAL TABLET 1 po q 8 hours prn pain sparinly IBUPROFEN 800 MG ORAL TABLET 858298 IBUPROFEN Inactive NYSTATIN-TRIAMCINOLONE 180420-1.1 UNIT/GM-% EXTERNAL CREAM apply bid NYSTATIN-TRIAMCINOLONE 272278-2.1 UNIT/GM-% EXTERNAL CREAM 2511978 NYSTATIN-TRIAMCINOLONE Inactive AZITHROMYCIN 500 MG INTRAVENOUS SOLUTION RECONSTITUTED 1 po q day AZITHROMYCIN 500 MG INTRAVENOUS SOLUTION RECONSTITUTED 64829078233 AZITHROMYCIN Inactive VENTOLIN HFA 108 (90 Base) MCG/ACT INHALATION AEROSOL SOLUTION 2 puffs four times a day PRN cough VENTOLIN HFA 108 (90 Base) MCG/ ACT INHALATION AEROSOL SOLUTION ALBUTEROL SULFATE Inactive LISINOPRIL 10 MG ORAL TABLET 1/2-1 tab po every other day LISINOPRIL 10 MG ORAL TABLET 909635 LISINOPRIL Inactive TUSSIONEX PENNKINETIC ER 10-8 MG/5ML ORAL SUSPENSION EXTENDED RELEASE 5ml po q12hr PRN Cough TUSSIONEX PENNKINETIC ER 10-8 MG/5ML ORAL SUSPENSION EXTENDED RELEASE HYDROCOD POLST-CHLORPHEN POLST Inactive PROMETHAZINE HCL 25 MG ORAL TABLET 1 four times a day as needed for nausea/ vomiting PROMETHAZINE HCL 25 MG ORAL TABLET 554012 PROMETHAZINE HCL Inactive PREDNISONE 20 MG ORAL TABLET 1 tablet twice daily for 2 days, then 1 tablet once daily for 2 days PREDNISONE 20 MG ORAL TABLET 901241 PREDNISONE Inactive WARFARIN SODIUM 4 MG ORAL TABLET 1 tab every evening WARFARIN SODIUM 4 MG ORAL TABLET 904594 WARFARIN SODIUM Inactive LOMOTIL 2.5-0.025 MG ORAL TABLET 1 to 2 four times a day as needed for diarrhea LOMOTIL 2.5-0.025 MG ORAL TABLET 8036215 DIPHENOXYLATE-ATROPINE Inactive IBUPROFEN 800 MG ORAL TABLET 1 tab every 8 hours as needed 07/12 IBUPROFEN 800 MG ORAL TABLET 550083 IBUPROFEN Inactive PREDNISONE 20 MG ORAL TABLET 2 tablets today, then 1 tablet days 2 through 4 PREDNISONE 20 MG ORAL TABLET 517479 PREDNISONE Inactive GABAPENTIN 300 MG ORAL CAPSULE 1 po q hs for nerve pain GABAPENTIN 300 MG ORAL CAPSULE 243011 GABAPENTIN Inactive TRAMADOL HCL 50 MG ORAL TABLET 1 po tid with ES Tylenol TRAMADOL HCL 50 MG ORAL TABLET 317319 TRAMADOL HCL Inactive PROAIR HFA 108 (90 BASE) MCG/ACT INHALATION AEROSOL SOLUTION 1-2 puffs four times a day as needed PROAIR HFA 108 (90 BASE) MCG/ACT INHALATION AEROSOL SOLUTION ALBUTEROL SULFATE Inactive PREDNISONE 20 MG ORAL TABLET two tabs by mouth today, then one tab by mouth days two and three PREDNISONE 20 MG ORAL TABLET 984988 PREDNISONE Inactive TESSALON PERLES 100 MG ORAL CAPSULE 1-2 tablet by mouth 3 times daily 04/16 TESSALON PERLES 100 MG ORAL CAPSULE 225959 BENZONATATE Inactive PREDNISONE 10 MG ORAL TABLET 1 tablet by mouth daily PREDNISONE 10 MG ORAL TABLET 030201 PREDNISONE Inactive AZITHROMYCIN 250 MG ORAL TABLET 2 po qd x 1 day, then 1 po qd x 4 days 10/16 AZITHROMYCIN 250 MG ORAL TABLET 346298 AZITHROMYCIN Inactive AZITHROMYCIN 250 MG ORAL TABLET 2 po qd x 1 day, then 1 po qd x 4 days 10/21 AZITHROMYCIN 250 MG ORAL TABLET 788508 AZITHROMYCIN Inactive NYSTATIN-TRIAMCINOLONE 079383-6.1 UNIT/GM-% EXTERNAL CREAM Apply to area BID NYSTATIN-TRIAMCINOLONE 339501-0.1 UNIT/GM-% EXTERNAL CREAM 9146996 NYSTATIN-TRIAMCINOLONE Inactive AZITHROMYCIN 250 MG ORAL TABLET 2 po qd x 1 day, then 1 po qd x 4 days 05/07 AZITHROMYCIN 250 MG ORAL TABLET 503410 AZITHROMYCIN Inactive AZITHROMYCIN 250 MG ORAL TABLET 2 po qd x 1 day, then 1 po qd x 4 days 10/13 AZITHROMYCIN 250 MG ORAL TABLET 146259 AZITHROMYCIN Inactive AZITHROMYCIN 250 MG ORAL TABLET 2 po qd x 1 day, then 1 po qd x 4 days 07/12 AZITHROMYCIN 250 MG ORAL TABLET 463182 AZITHROMYCIN Inactive PREDNISONE 20 MG ORAL TABLET 2 tabs daily for 3 days, 1 tab daily for 3 days, 1/2 tab daily for 2 days PREDNISONE 20 MG ORAL TABLET 518313 PREDNISONE Inactive DOXYCYCLINE HYCLATE 100 MG ORAL CAPSULE 1 cap by mouth BID x10 days DOXYCYCLINE HYCLATE 100 MG ORAL CAPSULE 6119898 DOXYCYCLINE HYCLATE Inactive ZITHROMAX 250 MG ORAL TABLET Take two (2 ) tablets day one, then one (1) tablet a day for four (4) more days ZITHROMAX 250 MG ORAL TABLET 110236 AZITHROMYCIN Inactive Advance Directives Directive Description Start [...] % 11.0-15.0 platelet count 172 THOUSAND/UL 10*3/mm3 917-948 0283/04/12 mean platelet volume 8.6 fL 7.5-12.5 Lab Report: Prothrombin Time Hemochron - Coagulation prothrombin time (patient) 33.0 SECS s 18.9-24.9 Encounters Code Encounter Date Provider Facility CPT-54136 Level 3 Est. Patient 15:59:25 PROFESSOR OF PATHOLOGY Piotr Daley [facility] CPT-54792 Level 3 Est. Patient 12:33:59 PROFESSOR OF PATHOLOGY Poitr Daley [facility] CPT-21873 Level 3 Est. Patient 15:56:17 PROFESSOR OF PATHOLOGY Piotr Daley [facility] CPT-89768 Level 3 Est. Patient 10:34:54 PROFESSOR OF PATHOLOGY Piotr Daley [facility] CPT-72482 Level 3 Est. Patient 17:10:19 MALACHI Harris APRN [facility] CPT-68455 Level 3 Est. Patient 10:48:17 PROFESSOR OF PATHOLOGY Matthew Rangel MD [facility] CPT-05986 Level 4 Est. Patient 17:15:07 PROFESSOR OF PATHOLOGY Piotr Daley [facility] CPT-44466 Level 3 Est. Patient 12:46:13 PROFESSOR OF PATHOLOGY Piotr Daley [facility] CPT-32988 Level 3 Est. Patient 15:14:31 PROFESSOR OF PATHOLOGY Piotr Katie Daley [facility] CPT-27500 Level 3 Est. Patient 09:20:13 PROFESSOR OF PATHOLOGY Piotr Daley [facility] CPT-20069 Level 3 Est. Patient 09:49:40 CDT Piotr Daley [facility] CPT-05897 Level 3 Est. Patient 16:28:11 CDT Piotr Daley [facility] CPT-92948 Level 3 Est. Patient 12:41:58 PROFESSOR OF PATHOLOGY Piotr Daley [facility] CPT-16176 Level 3 Est. Patient 09:21:24 CDT Piotr Daley [facility] CPT-73860 Level 3 Est. Patient 09:21:11 CDT Piotr Daley [facility] CPT-26891 Level 3 Est. Patient 11:16:29 PROFESSOR OF PATHOLOGY Piotr Daley [facility] CPT-57583 Level 3 Est. Patient 18:40:19 PROFESSOR OF PATHOLOGY Piotr Daley [facility] CPT-15374 Level 3 Est. Patient 19:30:50 CDT Piotr Daley [facility] CPT-97653 Level 3 Est. Patient 22:06:44 CDT Katrina Rinaldi MD PhD [facility]-75325 Level 3 Est. Patient 14:20:00 CDT Piotr Daley [facility] CPT-73851 Level 3 Est. Patient 14:15:22 PROFESSOR OF PATHOLOGY Piotr Daley [facility] CPT-63393 Level 3 Est. Patient 20:19:57 PROFESSOR OF PATHOLOGY Piotr Daley [facility] CPT-91786 Level 3 Est. Patient 16:44:32 CDT Piotr Daley [facility] CPT-13091 Level 3 Est. Patient 08:48:46 PROFESSOR OF PATHOLOGY Piotr Daley [facility] CPT-33396 Level 3 Est. Patient 21:01:21 CDT Piotr Daley [facility] Procedures Code Procedure Name Date Entry Date Standard Description CPT-93617 Sacroiliac jt < 3V - XRAY USE ONLY 16:45:19 PROFESSOR OF PATHOLOGY 05/09 CPT-03507 LS spine comp w obliques - XRAY USE ONLY 14:52:26 PROFESSOR OF PATHOLOGY CPT-37635 Chest, 2 views 12:55:58 PROFESSOR OF PATHOLOGY CPT-G0439 Subsequent Annual Wellness Exam 10:34:52 PROFESSOR OF PATHOLOGY CPT-98513 BMP - LAB USE ONLY 17:19:11 PROFESSOR OF PATHOLOGY CPT-98228 PT/INR - LAB USE ONLY 17:19:10 [facility] CPT-75769 Venipuncture Draw Fee 17:19:10 [facility] CPT-50875 PT/INR - LAB USE ONLY 08:12:25 PROFESSOR OF PATHOLOGY CPT-16057 Venipuncture Draw Fee 08:12:24 PROFESSOR OF PATHOLOGY CPT-59832 Venipuncture Draw Fee 11:31:07 PROFESSOR OF PATHOLOGY CPT-27017 TPSA - LAB USE ONLY 11:31:07 PROFESSOR OF PATHOLOGY CPT-57865 PT/INR - LAB USE ONLY 11:31:07 PROFESSOR OF PATHOLOGY CPT-G0439 Subsequent Annual Wellness Exam 09:59:29 PROFESSOR OF PATHOLOGY CPT-05310 Creatinine - LAB USE ONLY 14:37:55 PROFESSOR OF PATHOLOGY CPT-03882 PT/INR - LAB USE ONLY 14:37:55 PROFESSOR OF PATHOLOGY CPT-47950 Venipuncture Draw Fee 14:37:55 PROFESSOR OF PATHOLOGY CPT-19934 LS spine comp w obliques - XRAY USE ONLY 12:59:25 PROFESSOR OF PATHOLOGY CPT-78613 PT/INR - LAB USE ONLY 13:49:20 CDT CPT-04399 Venipuncture Draw Fee 13:49:19 CDT CPT-69925 PT/INR - LAB USE ONLY 15:48:49 CDT CPT-35294 Venipuncture Draw Fee 15:48:49 CDT CPT-77934 Venipuncture Draw Fee 11:31:59 CDT CPT-50961 PT/INR - LAB USE ONLY 11:31:59 CDT CPT-14433 Venipuncture Draw Fee 13:29:15 CDT CPT-26331 Thoracolumbar AP/Lat 15:19:19 PROFESSOR OF PATHOLOGY CPT-G0438 Initial Annual Wellness Exam 12:18:54 PROFESSOR OF PATHOLOGY CPT-71860 Knee 3V 09:57:38 CDT CPT-OV Office Visit 15:45:01 PROFESSOR OF PATHOLOGY CPT-70272 Abd compl w upright 17:10:25 CDT
--- OUTSIDE RECORDS SUMMARY | 2018-07-18 08:03 | XMS REPORT | Clinical Summary ---
Author Author Admin, YONG Organization [facility] Address Unknown Phone Unavailable Allergies, Adverse Reactions, [...] neoplasm of prostate V10.46 Active Alina Meyers BUSINESS PROCESS ARCHITECT Personal history of malignant neoplasm of prostate Coronary artery disease 414.00 Active Alina Luigi BUSINESS PROCESS ARCHITECT Coronary atherosclerosis of unspecified type of vessel, [place] or graft Back pain, thoracic region, left 724.1 Inactive Piotr Katie Daley DO Pain in thoracic spine Thoracic back pain 724.5 Active Piotr Katie Daley DO Backache, unspecified Back pain lumbar 724.2 Active Piotr Katie Daley DO Lumbago HEALTH MAINTENANCE EXAM ICD-V70.0 Inactive Katrina Rinaldi MD PhD BRONCHITIS-ACUTE ICD-466.0 Inactive Piotr Katie Edi DO SCREENING, COLON CANCER ICD-V76.51 Inactive Katrina Rinaldi MD PhD BRONCHITIS-ACUTE ICD-466.0 Inactive Piotr Katie Edi DO Bronchitis-Acute ICD-466.0 Inactive Piotr Daley DO Back pain, thoracic region, left ICD-724.1 Inactive Piotr Daley DO FLANK PAIN, RIGHT ICD-789.09 Inactive Katrina Rinaldi MD PhD Medication List Medication Instructions Start Date Stop Date Generic Name NDC Status Provider Patient Instruction TRAMADOL HCL 50 MG TABS 1 po tid with ES Tylenol TRAMADOL HCL 34476156982 Active Piotr Daley DO Active WARFARIN SODIUM 5 MG TABS 1 tablet daily except for Saturday and Sat 1/ tablet. WARFARIN SODIUM 41658400614 Active Hilary Ma MA Active PREDNISONE 20 MG TAB 2 tablets today, then 1 tablet days 2 through 4 PREDNISONE 60356681172 No Longer Active Piotr Daley DO Active AZITHROMYCIN 250 MG TABS 2 po qd x 1 day, then 1 po qd x 4 days AZITHROMYCIN 36417147962 No Longer Active Piotr Daley DO Active IBUPROFEN 800 MG TABS 1 tab every 8 hours as needed IBUPROFEN 73179532112 No Longer Active Piotr Daley DO Active LOMOTIL 2.5-0.025 MG TAB 1 to 2 four times a day as needed for diarrhea 10/13 DIPHENOXYLATE-ATROPINE 64825669867 No Longer Active Piotr Daley DO Active WARFARIN SODIUM 4 MG TABS 1 tab every evening WARFARIN SODIUM 20653072252 No Longer Active Piotr Daley DO Active PREDNISONE 20 MG TAB 1 tablet twice daily for 2 days, then 1 tablet once daily for 2 days PREDNISONE 22336115681 No Longer Active Piotr Daley DO Active PROMETHAZINE HCL 25 MG TABS 1 four times a day as needed for nausea/vomiting PROMETHAZINE HCL 89006117117 No Longer Active Piotr Daley DO Active TUSSIONEX PENNKINETIC ER 10-8 MG/5ML LQCR 5ml po q12hr PRN Cough HYDROCOD POLST-CHLORPHEN POLST 78002694157 No Longer Active Piotr Daley DO Active AZITHROMYCIN 250 MG TABS 2 po qd x 1 day, then 1 po qd x 4 days AZITHROMYCIN 29494753602 No Longer Active Piotr Daley DO Active AZITHROMYCIN 250 MG TABS 2 po qd x 1 day, then 1 po qd x 4 days AZITHROMYCIN 48081367488 No Longer Active Piotr Daley DO Active LISINOPRIL-HYDROCHLOROTHIAZIDE 10-12.5 MG TABS 1 tab by mouth daily LISINOPRIL-HYDROCHLOROTHIAZIDE 84509675401 Active Hilary Ma MA Active LISINOPRIL 10 MG TABS 1/2-1 tab po every other day LISINOPRIL 85345154111 No Longer Active Piotr Daley DO Active VENTOLIN HFA 108 (90 BASE) MCG/ACT AERS 2 puffs four times a day PRN cough ALBUTEROL SULFATE 04124182464 No Longer Active Piotr Daley DO Active NYSTATIN-TRIAMCINOLONE 239750-8.1 UNIT/GM-% CREA Apply to area BID NYSTATIN-TRIAMCINOLONE 61085666054 No Longer Active Alena Chavira JEEPER OPERATOR Active PHISOHEX 3 % LIQD Use Directed HEXACHLOROPHENE 67883491727 No Longer Active Sandra [employer] Active AZITHROMYCIN 250 MG TABS 2 po qd x 1 day, then 1 po qd x 4 days AZITHROMYCIN 99733310308 No Longer Active Katrina Rinaldi MD PhD Active AZITHROMYCIN 250 MG TABS 2 po qd x 1 day, then 1 po qd x 4 days AZITHROMYCIN 64234575218 No Longer Active Piotr Daley DO Active AZITHROMYCIN 500 MG SOLR 1 po q day AZITHROMYCIN 60978357820 No Longer Active Piotr Daley DO Active NYSTATIN-TRIAMCINOLONE 430493-7.1 UNIT/GM-% CREA apply bid 08/19 NYSTATIN-TRIAMCINOLONE 05073127529 No Longer Active Piotr W Edi DO Active IBUPROFEN 800 MG TABS 1 po q 8 hours prn pain sparinly IBUPROFEN 66749663234 No Longer Active Piotr Daley DO Active VITAMIN D3 5000 UNIT CAPS 1 po daily CHOLECALCIFEROL 59944589888 Active Piotr Wilson Edi DO Active IBUPROFEN 800 MG TABS 1 po q 8 hours prn pain sparinly IBUPROFEN 800 MG TABS 908038 IBUPROFEN Inactive NYSTATIN-TRIAMCINOLONE 000813-6.1 UNIT/GM-% CREA apply bid 08/19 NYSTATIN-TRIAMCINOLONE 348291-1.1 UNIT/GM-% CREA 2860859 NYSTATIN- TRIAMCINOLONE Inactive AZITHROMYCIN 500 MG SOLR 1 po q day AZITHROMYCIN 500 MG SOLR 55895567681 AZITHROMYCIN Inactive VENTOLIN HFA 108 (90 BASE) MCG/ACT AERS 2 puffs four times a day PRN cough VENTOLIN HFA 108 (90 BASE) MCG/ACT AERS ALBUTEROL SULFATE Inactive LISINOPRIL 10 MG TABS 1/2-1 tab po every other day LISINOPRIL 10 MG TABS 582759 LISINOPRIL Inactive TUSSIONEX PENNKINETIC ER 10-8 MG/5ML LQCR 5ml po q12hr PRN Cough TUSSIONEX PENNKINETIC ER 10-8 MG/5ML LQCR HYDROCOD POLST- CHLORPHEN POLST Inactive PROMETHAZINE HCL 25 MG TABS 1 four times a day as needed for nausea/vomiting PROMETHAZINE HCL 25 MG TABS 387073 PROMETHAZINE HCL Inactive PREDNISONE 20 MG TAB 1 tablet twice daily for 2 days, then 1 tablet once daily for 2 days PREDNISONE 20 MG TAB 535474 PREDNISONE Inactive WARFARIN SODIUM 4 MG TABS 1 tab every evening WARFARIN SODIUM 4 MG TABS 047278 WARFARIN SODIUM Inactive LOMOTIL 2.5-0.025 MG TAB 1 to 2 four times a day as needed for diarrhea 10/13 LOMOTIL 2.5-0.025 MG TAB 1139051 DIPHENOXYLATE-ATROPINE Inactive IBUPROFEN 800 MG TABS 1 tab every 8 hours as needed IBUPROFEN 800 MG TABS 123271 IBUPROFEN Inactive PREDNISONE 20 MG TAB 2 tablets today, then 1 tablet days 2 through 4 PREDNISONE 20 MG TAB 879842 PREDNISONE Inactive AZITHROMYCIN 250 MG TABS 2 po qd x 1 day, then 1 po qd x 4 days AZITHROMYCIN 250 MG TABS 5638532 AZITHROMYCIN Inactive AZITHROMYCIN 250 MG TABS 2 po qd x 1 day, then 1 po qd x 4 days AZITHROMYCIN 250 MG TABS 8090114 AZITHROMYCIN Inactive NYSTATIN-TRIAMCINOLONE 318722-7.1 UNIT/GM-% CREA Apply to area BID NYSTATIN-TRIAMCINOLONE 456111-8.1 UNIT/GM-% CREA 4453717 NYSTATIN-TRIAMCINOLONE Inactive AZITHROMYCIN 250 MG TABS 2 po qd x 1 day, then 1 po qd x 4 days AZITHROMYCIN 250 MG TABS 0354443 AZITHROMYCIN Inactive AZITHROMYCIN 250 MG TABS 2 po qd x 1 day, then 1 po qd x 4 days AZITHROMYCIN 250 MG TABS 2308231 AZITHROMYCIN Inactive AZITHROMYCIN 250 MG TABS 2 po qd x 1 day, then 1 po qd x 4 days AZITHROMYCIN 250 MG TABS 4084802 AZITHROMYCIN Inactive Advance Directives Directive Description Start [...] mg/g mg/g{creat} 0-29 sodium, serum 140 mmol/L 521-968 6132/07/17 potassium, serum 4.2 mmol/L 3.5-5.2 chloride, serum [...] ratio (INR) 2.4 1.0-3.5 prothrombin time (patient) 18.8 SECS s 11.1-13.4 international normalized ratio (INR) 2.3 1.0-3.5 prothrombin time (patient) 17.5 SECS s 11.1-13.4 international normalized ratio (INR) 2.1 1.0-3.5 international normalized ratio (INR) 2.0 1.0-3.5 prothrombin time (patient) 17.7 SECS s 11.1-13.4 prothrombin time (patient) 21.0 SECS s 11.1-13.4 international normalized ratio (INR) 2.8 1.0-3.5 prothrombin time (patient) 19.5 SECS s 11.1-13.4 prothrombin time (patient) 17.3 SECS s 11.1-13.4 international normalized ratio (INR) 1.99 1.0-3.5 international normalized ratio (INR) 2.5 1.0-3.5 prothrombin time (patient) 17.5 SECS s 11.1-13.4 international normalized ratio (INR) 2.1 1.0-3.5 prothrombin time (patient) 16.5 SECS s 11.1-13.4 international normalized ratio (INR) 1.9 1.0-3.5 prothrombin time (patient) 19.9 SECS s 11.1-13.4 international normalized ratio (INR) 2.6 1.0-3.5 Lab Report: Prothrombin Time, Prostatic Specific [...] - Urinalysis glucose, urine, semiquantitative Negative Negative appearance, urine Clear Clear specific gravity, urine 1.025 1.000-1.030 bilirubin, urine Negative Negative urobilinogen, urine, semiquantitative (dipstick) 0.2 Normal leukocyte esterase, urine, by dipstick Negative Negative nitrite, urine, semiquantitative Negative Negative pH, urine, semiquantitative 6.0 5.0-8.5 ketones, urine, by test strip Negative Negative urine color Yellow Colorless;Lightyellow;Straw;Yellow Encounters Code Encounter Date Provider Facility CPT-92012 Level 3 Est. Patient 15:14:31 TIN POURER Piotr Daley [facility] CPT-97866 Level 3 Est. Patient 09:20:13 TIN POURER Piotr Daley [facility] CPT-39015 Level 3 Est. Patient 09:49:40 CDT Piotr Wilson [facility] CPT-98989 Level 3 Est. Patient 16:28:11 CDT Piotr Dlaey [facility] CPT-85593 Level 3 Est. Patient 12:41:58 TIN POURER Piotr Daley [facility] CPT-82935 Level 3 Est. Patient 09:21:24 CDT Piotr Wilson [facility] CPT-87864 Level 3 Est. Patient 09:21:11 CDT Piotr Wilson [facility] CPT-53190 Level 3 Est. Patient 11:16:29 TIN POURER Piotr Wilson [facility] CPT-56133 Level 3 Est. Patient 18:40:19 TIN POURER Piotr Daley [facility] CPT-80009 Level 3 Est. Patient 19:30:50 CDT Piotr Daley [facility] CPT-77641 Level 3 Est. Patient 22:06:44 CDT Katrina Rinaldi MD [facility] CPT-43328 Level 3 Est. Patient 14:20:00 CDT Piotr Daley [facility] CPT-30140 Level 3 Est. Patient 14:15:22 TIN POURER Piotr Daley [facility] CPT-28647 Level 3 Est. Patient 20:19:57 TIN POURER Piotr Daley [facility] CPT-82151 Level 3 Est. Patient 16:44:32 CDT Piotr Daley [facility] CPT-27774 Level 3 Est. Patient 08:48:46 TIN POURER Piotr Daley [facility] CPT-72808 Level 3 Est. Patient 21:01:21 CDT Piotr Wilson [facility] Procedures Code Procedure Name Date Entry Date Standard Description CPT-26637 Thoracolumbar AP/Lat 15:19:19 TIN POURER CPT-G0438 Initial Annual Wellness Exam 12:18:54 TIN POURER CPT-61926 Knee 3V 09:57:38 CDT CPT-OV Office Visit 15:45:01 TIN POURER CPT-70626 Abd compl w upright 17:10:25 CDT
--- OUTSIDE RECORDS SUMMARY | 2018-07-18 08:03 | XMS REPORT | Clinical Summary ---
Author Author Admin, Isidra Organization [employer] Address Unknown Phone Unavailable Allergies, Adverse Reactions, Alerts Allergy Name Reaction Description Start Date Severity Status Provider PENICILLINS Mild No Longer Active Piotr Daley DO PENICILLINS Critical No Longer Active Piort Wilson Edi DO PENICILLINS UNK Inactive Bernadette [...] neoplasm of prostate V10.46 Active Alina Meyers LEAD JAVA SOFTWARE ENGINEER Personal history of malignant neoplasm of prostate Coronary artery disease 414.00 Active Alina Luigi LEAD JAVA SOFTWARE ENGINEER Coronary atherosclerosis of unspecified type of vessel, [place] or graft Back pain, thoracic region, left 724.1 Inactive Piotr Katie Edi DO Pain in thoracic spine Thoracic back pain 724.5 Active Piotr W Edi DO Backache, unspecified Back pain lumbar 724.2 Active Piotr Daley DO Lumbago Peripheral neuropathy, lower extremity, left 356.9 Active 02/19 Piotr W Edi DO Unspecified hereditary and idiopathic peripheral neuropathy Insect bite 919.4 Active Nella Harris LEAD JAVA SOFTWARE ENGINEER Insect bite, nonvenomous, of other, multiple, and unspecified sites, without mention of infection Pruritus 698.9 Active Nella Harris LEAD JAVA SOFTWARE ENGINEER Unspecified pruritic disorder Wellness exam V70.0 Active [...] times a day as needed ALBUTEROL SULFATE 85540161907 No Longer Active Emelyn Norris Active DOXYCYCLINE HYCLATE 100 MG ORAL CAPSULE 1 cap by mouth BID x10 days DOXYCYCLINE HYCLATE 53884244936 No Longer Active Nella Harris APRN Active WARFARIN SODIUM 5 MG ORAL TABLET 1 tablet daily M-S, 1/2 tab on Heart WARFARIN SODIUM 83202885737 Active Piotr Daley DO Active PREDNISONE 20 MG ORAL TABLET 2 tabs daily for 3 days, 1 tab daily for 3 days, 1/2 tab daily for 2 days PREDNISONE 38558583174 No Longer Active Matthew Rangel MD Active TRAMADOL HCL 50 MG ORAL TABLET 1 po tid with ES Tylenol TRAMADOL HCL 39998658697 No Longer Active Matthew Rangel MD Active GABAPENTIN 300 MG ORAL CAPSULE 1 po q hs for nerve pain GABAPENTIN 70430835735 No Longer Active Matthew Rangel MD Active PREDNISONE 20 MG ORAL TABLET 2 tablets today, then 1 tablet days 2 through 4 PREDNISONE 77129140467 No Longer Active Piotr Daley DO Active AZITHROMYCIN 250 MG ORAL TABLET 2 po qd x 1 day, then 1 po qd x 4 days 07/12 AZITHROMYCIN 91529135612 No Longer Active Piotr Daley DO Active IBUPROFEN 800 MG ORAL TABLET 1 tab every 8 hours as needed 07/12 IBUPROFEN 15715805434 No Longer Active Piotr Daley DO Active LOMOTIL 2.5-0.025 MG ORAL TABLET 1 to 2 four times a day as needed for diarrhea DIPHENOXYLATE-ATROPINE 84548453779 No Longer Active Piotr Daley DO Active WARFARIN SODIUM 4 MG ORAL TABLET 1 tab every evening WARFARIN SODIUM 94562760048 No Longer Active Piotr Daley DO Active PREDNISONE 20 MG ORAL TABLET 1 tablet twice daily for 2 days, then 1 tablet once daily for 2 days PREDNISONE 75877147376 No Longer Active Piotr Daley DO Active PROMETHAZINE HCL 25 MG ORAL TABLET 1 four times a day as needed for nausea/ vomiting PROMETHAZINE HCL 35723012798 No Longer Active Piotr Daley DO Active TUSSIONEX PENNKINETIC ER 10-8 MG/5ML ORAL SUSPENSION EXTENDED RELEASE 5ml po q12hr PRN Cough HYDROCOD POLST-CHLORPHEN POLST 83778883929 No Longer Active Piotr Daley DO Active AZITHROMYCIN 250 MG ORAL TABLET 2 po qd x 1 day, then 1 po qd x 4 days 10/13 AZITHROMYCIN 93783542845 No Longer Active Piotr Daley DO Active AZITHROMYCIN 250 MG ORAL TABLET 2 po qd x 1 day, then 1 po qd x 4 days 05/07 AZITHROMYCIN 93145229144 No Longer Active Piotr Daley DO Active LISINOPRIL-HYDROCHLOROTHIAZIDE 10-12.5 MG ORAL TABLET 1 tab by mouth daily LISINOPRIL-HYDROCHLOROTHIAZIDE 71243287312 Active Piotr Daley DO Active LISINOPRIL 10 MG ORAL TABLET 1/2-1 tab po every other day LISINOPRIL 00675521193 No Longer Active Piotr Daley DO Active VENTOLIN HFA 108 (90 Base) MCG/ACT INHALATION AEROSOL SOLUTION 2 puffs four times a day PRN cough ALBUTEROL SULFATE 63354816715 No Longer Active Piotr Daley DO Active NYSTATIN-TRIAMCINOLONE 297754-1.1 UNIT/GM-% EXTERNAL CREAM Apply to area BID NYSTATIN-TRIAMCINOLONE 04139650495 No Longer Active Alena Chavira SOLAR DESIGNER Active PHISOHEX 3 % LIQD Use Directed HEXACHLOROPHENE 61601127686 No Longer Active Sandra [place] Active AZITHROMYCIN 250 MG ORAL TABLET 2 po qd x 1 day, then 1 po qd x 4 days 10/21 AZITHROMYCIN 60951448407 No Longer Active Katrina Rinaldi MD PhD Active AZITHROMYCIN 250 MG ORAL TABLET 2 po qd x 1 day, then 1 po qd x 4 days 10/16 AZITHROMYCIN 18379879953 No Longer Active Piotr Daley DO Active AZITHROMYCIN 500 MG INTRAVENOUS SOLUTION RECONSTITUTED 1 po q day AZITHROMYCIN 25958520325 No Longer Active Piotr Daley DO Active NYSTATIN-TRIAMCINOLONE 087544-5.1 UNIT/GM-% EXTERNAL CREAM apply bid NYSTATIN-TRIAMCINOLONE 72644325608 No Longer Active Piotr Daley DO Active IBUPROFEN 800 MG ORAL TABLET 1 po q 8 hours prn pain sparinly IBUPROFEN 54320355162 No Longer Active Piotr Daley DO Active VITAMIN D3 5000 UNIT ORAL CAPSULE 1 po daily CHOLECALCIFEROL 61949594747 Active Piotr Daley DO Active IBUPROFEN 800 MG ORAL TABLET 1 po q 8 hours prn pain sparinly IBUPROFEN 800 MG ORAL TABLET 513653 IBUPROFEN Inactive NYSTATIN-TRIAMCINOLONE 548363-2.1 UNIT/GM-% EXTERNAL CREAM apply bid NYSTATIN-TRIAMCINOLONE 402247-7.1 UNIT/GM-% EXTERNAL CREAM 2998558 NYSTATIN-TRIAMCINOLONE Inactive AZITHROMYCIN 500 MG INTRAVENOUS SOLUTION RECONSTITUTED 1 po q day AZITHROMYCIN 500 MG INTRAVENOUS SOLUTION RECONSTITUTED 76667705454 AZITHROMYCIN Inactive VENTOLIN HFA 108 (90 Base) MCG/ACT INHALATION AEROSOL SOLUTION 2 puffs four times a day PRN cough VENTOLIN HFA 108 (90 Base) MCG/ ACT INHALATION AEROSOL SOLUTION ALBUTEROL SULFATE Inactive LISINOPRIL 10 MG ORAL TABLET 1/2-1 tab po every other day LISINOPRIL 10 MG ORAL TABLET 471088 LISINOPRIL Inactive TUSSIONEX PENNKINETIC ER 10-8 MG/5ML ORAL SUSPENSION EXTENDED RELEASE 5ml po q12hr PRN Cough TUSSIONEX PENNKINETIC ER 10-8 MG/5ML ORAL SUSPENSION EXTENDED RELEASE HYDROCOD POLST-CHLORPHEN POLST Inactive PROMETHAZINE HCL 25 MG ORAL TABLET 1 four times a day as needed for nausea/ vomiting PROMETHAZINE HCL 25 MG ORAL TABLET 640592 PROMETHAZINE HCL Inactive PREDNISONE 20 MG ORAL TABLET 1 tablet twice daily for 2 days, then 1 tablet once daily for 2 days PREDNISONE 20 MG ORAL TABLET 031160 PREDNISONE Inactive WARFARIN SODIUM 4 MG ORAL TABLET 1 tab every evening WARFARIN SODIUM 4 MG ORAL TABLET 876880 WARFARIN SODIUM Inactive LOMOTIL 2.5-0.025 MG ORAL TABLET 1 to 2 four times a day as needed for diarrhea LOMOTIL 2.5-0.025 MG ORAL TABLET 0461939 DIPHENOXYLATE-ATROPINE Inactive IBUPROFEN 800 MG ORAL TABLET 1 tab every 8 hours as needed 07/12 IBUPROFEN 800 MG ORAL TABLET 114028 IBUPROFEN Inactive PREDNISONE 20 MG ORAL TABLET 2 tablets today, then 1 tablet days 2 through 4 PREDNISONE 20 MG ORAL TABLET 888148 PREDNISONE Inactive GABAPENTIN 300 MG ORAL CAPSULE 1 po q hs for nerve pain GABAPENTIN 300 MG ORAL CAPSULE 507886 GABAPENTIN Inactive TRAMADOL HCL 50 MG ORAL TABLET 1 po tid with ES Tylenol TRAMADOL HCL 50 MG ORAL TABLET 056116 TRAMADOL HCL Inactive PROAIR HFA 108 (90 BASE) MCG/ACT INHALATION AEROSOL SOLUTION 1-2 puffs four times a day as needed PROAIR HFA 108 (90 BASE) MCG/ACT INHALATION AEROSOL SOLUTION ALBUTEROL SULFATE Inactive AZITHROMYCIN 250 MG ORAL TABLET 2 po qd x 1 day, then 1 po qd x 4 days 10/16 AZITHROMYCIN 250 MG ORAL TABLET 181814 AZITHROMYCIN Inactive AZITHROMYCIN 250 MG ORAL TABLET 2 po qd x 1 day, then 1 po qd x 4 days 10/21 AZITHROMYCIN 250 MG ORAL TABLET 548741 AZITHROMYCIN Inactive NYSTATIN-TRIAMCINOLONE 114623-2.1 UNIT/GM-% EXTERNAL CREAM Apply to area BID NYSTATIN-TRIAMCINOLONE 642196-2.1 UNIT/GM-% EXTERNAL CREAM 4287902 NYSTATIN-TRIAMCINOLONE Inactive AZITHROMYCIN 250 MG ORAL TABLET 2 po qd x 1 day, then 1 po qd x 4 days 05/07 AZITHROMYCIN 250 MG ORAL TABLET 085593 AZITHROMYCIN Inactive AZITHROMYCIN 250 MG ORAL TABLET 2 po qd x 1 day, then 1 po qd x 4 days 10/13 AZITHROMYCIN 250 MG ORAL TABLET 864812 AZITHROMYCIN Inactive AZITHROMYCIN 250 MG ORAL TABLET 2 po qd x 1 day, then 1 po qd x 4 days 07/12 AZITHROMYCIN 250 MG ORAL TABLET 047336 AZITHROMYCIN Inactive PREDNISONE 20 MG ORAL TABLET 2 tabs daily for 3 days, 1 tab daily for 3 days, 1/2 tab daily for 2 days PREDNISONE 20 MG ORAL TABLET 131172 PREDNISONE Inactive DOXYCYCLINE HYCLATE 100 MG ORAL CAPSULE 1 cap by mouth BID x10 days DOXYCYCLINE HYCLATE 100 MG ORAL CAPSULE 8132124 DOXYCYCLINE HYCLATE Inactive Advance Directives Directive Description [...] Panel - Chemistry sodium, serum 141 mmol/L 336-348 6121/01/24 potassium, serum 4.3 mmol/L 3.5-5.2 chloride, serum [...] % 11.0-15.0 platelet count 172 THOUSAND/UL 10*3/mm3 731-639 7509/04/12 mean platelet volume 8.6 fL 7.5-12.5 Lab [...] 18.9-24.9 Encounters Code Encounter Date Provider Facility CPT-13488 Level 3 Est. Patient 10:34:54 BATTER MIXER HELPER Piotr Wilson Edi [facility] CPT-21863 Level 3 Est. Patient 17:10:19 CDT Nella Harris APRN [facility] CPT-45990 Level 3 Est. Patient 10:48:17 BATTER MIXER HELPER Matthew Rangel MD [facility] CPT-42834 Level 4 Est. Patient 17:15:07 BATTER MIXER HELPER Piotr Wilson Edi [facility] CPT-95236 Level 3 Est. Patient 12:46:13 BATTER MIXER HELPER Piotr Wilson Edi [facility] CPT-37587 Level 3 Est. Patient 15:14:31 BATTER MIXER HELPER Piotr Wilson Edi [facility] CPT-28171 Level 3 Est. Patient 09:20:13 BATTER MIXER HELPER Piotr Wilson Edi [facility] CPT-44889 Level 3 Est. Patient 09:49:40 CDT Piotr Daley [facility] CPT-78689 Level 3 Est. Patient 16:28:11 CDT Piotr Daley [facility] CPT-86984 Level 3 Est. Patient 12:41:58 BATTER MIXER HELPER Piotr Daley [facility] CPT-60640 Level 3 Est. Patient 09:21:24 CDT Piotr Wilson Edi [facility] CPT-99429 Level 3 Est. Patient 09:21:11 CDT Piotr Katie Daley [facility] CPT-02270 Level 3 Est. Patient 11:16:29 BATTER MIXER HELPER Piotr Daley [facility] CPT-68532 Level 3 Est. Patient 18:40:19 BATTER MIXER HELPER Piotr Daley [facility] CPT-77207 Level 3 Est. Patient 19:30:50 CDT Piotr Daley [facility] CPT-63105 Level 3 Est. Patient 22:06:44 CDT Katrina Rinaldi MD PhD [facility] CPT-08534 Level 3 Est. Patient 14:20:00 CDT Piotr Daley [facility] CPT-41665 Level 3 Est. Patient 14:15:22 BATTER MIXER HELPER Piotr Daley [facility] CPT-46381 Level 3 Est. Patient 20:19:57 BATTER MIXER HELPER Piotr Daley [facility] CPT-26511 Level 3 Est. Patient 16:44:32 CDT Piotr Daley [facility] CPT-62720 Level 3 Est. Patient 08:48:46 BATTER MIXER HELPER Piotr Daley [facility] CPT-10896 Level 3 Est. Patient 21:01:21 CDT Piotr Daley [facility] Procedures Code Procedure Name Date Entry Date Standard Description CPT-G0439 Subsequent Annual Wellness Exam 10:34:52 [facility] CPT-31675 BMP - LAB USE ONLY 17:19:11 BATTER MIXER HELPER CPT-81203 PT/INR - LAB USE ONLY 17:19:10 [facility] CPT-72416 Venipuncture Draw Fee 17:19:10 BATTER MIXER HELPER CPT-74476 PT/INR - LAB USE ONLY 08:12:25 [facility] CPT-02796 Venipuncture Draw Fee 08:12:24 BATTER MIXER HELPER CPT-75816 Venipuncture Draw Fee 11:31:07 BATTER MIXER HELPER CPT-05365 TPSA - LAB USE ONLY 11:31:07 BATTER MIXER HELPER CPT-46066 PT/INR - LAB USE ONLY 11:31:07 [facility] CPT-G0439 Subsequent Annual Wellness Exam 09:59:29 BATTER MIXER HELPER CPT-34885 Creatinine - LAB USE ONLY 14:37:55 BATTER MIXER HELPER CPT-38939 PT/INR - LAB USE ONLY 14:37:55 BATTER MIXER HELPER CPT-93083 Venipuncture Draw Fee 14:37:55 BATTER MIXER HELPER CPT-21498 LS spine comp w obliques - XRAY USE ONLY 12:59:25 BATTER MIXER HELPER CPT-81452 PT/INR - LAB USE ONLY 13:49:20 CDT CPT-16965 Venipuncture Draw Fee 13:49:19 CDT CPT-79447 PT/INR - LAB USE ONLY 15:48:49 CDT CPT-17155 Venipuncture Draw Fee 15:48:49 CDT CPT-44670 Venipuncture Draw Fee 11:31:59 CDT CPT-12751 PT/INR - LAB USE ONLY 11:31:59 CDT CPT-73715 Venipuncture Draw Fee 13:29:15 CDT CPT-33664 Thoracolumbar AP/Lat 15:19:19 BATTER MIXER HELPER CPT-G0438 Initial Annual Wellness Exam 12:18:54 BATTER MIXER HELPER CPT-56574 Knee 3V 09:57:38 CDT CPT-OV Office Visit 15:45:01 BATTER MIXER HELPER CPT-14447 Abd compl w upright 17:10:25 CDT
--- OUTSIDE RECORDS SUMMARY | 2018-07-18 08:04 | XMS REPORT | Clinical Summary ---
Author Author Admin, YONG Organization [facility] Address Unknown Phone Unavailable Allergies, Adverse Reactions, [...] neoplasm of prostate V10.46 Active Alina Meyers BAR EXAMINER Personal history of malignant neoplasm of prostate Coronary artery disease 414.00 Active Alina Meyers BAR EXAMINER Coronary atherosclerosis of unspecified type of vessel, [place] or graft Back pain, thoracic region, left [...] po tid with ES Tylenol TRAMADOL HCL 31232208804 Active Piotr Daley DO Active WARFARIN SODIUM 5 MG TABS 1 tablet daily except for Saturday and Sat/2 tablet. WARFARIN SODIUM 70782758484 Active Piotr Daley DO Active PREDNISONE 20 MG TAB 2 tablets today, then 1 tablet days 2 through 4 PREDNISONE 35303823960 No Longer Active Piotr Daley DO Active AZITHROMYCIN 250 MG TABS 2 po qd x 1 day, then 1 po qd x 4 days AZITHROMYCIN 45854819953 No Longer Active Piotr Daley DO Active IBUPROFEN 800 MG TABS 1 tab every 8 hours as needed IBUPROFEN 62011547805 No Longer Active Piotr Daley DO Active LOMOTIL 2.5-0.025 MG TAB 1 to 2 four times a day as needed for diarrhea 10/13 DIPHENOXYLATE-ATROPINE 99317833279 No Longer Active Piotr Daley DO Active WARFARIN SODIUM 4 MG TABS 1 tab every evening WARFARIN SODIUM 21155103593 No Longer Active Piotr Daley DO Active PREDNISONE 20 MG TAB 1 tablet twice daily for 2 days, then 1 tablet once daily for 2 days PREDNISONE 88047648029 No Longer Active Piotr Daley DO Active PROMETHAZINE HCL 25 MG TABS 1 four times a day as needed for nausea/vomiting PROMETHAZINE HCL 71014257731 No Longer Active Piotr Daley DO Active TUSSIONEX PENNKINETIC ER 10-8 MG/5ML LQCR 5ml po q12hr PRN Cough HYDROCOD POLST-CHLORPHEN POLST 95185313895 No Longer Active Piotr Daley DO Active AZITHROMYCIN 250 MG TABS 2 po qd x 1 day, then 1 po qd x 4 days AZITHROMYCIN 96299600188 No Longer Active Piotr Daley DO Active AZITHROMYCIN 250 MG TABS 2 po qd x 1 day, then 1 po qd x 4 days AZITHROMYCIN 56347252710 No Longer Active Piotr Daley DO Active LISINOPRIL-HYDROCHLOROTHIAZIDE 10-12.5 MG TABS 1 tab by mouth daily LISINOPRIL-HYDROCHLOROTHIAZIDE 99760143336 Active Piotr Daley DO Active LISINOPRIL 10 MG TABS 1/2-1 tab po every other day LISINOPRIL 76898573130 No Longer Active Piotr Daley DO Active VENTOLIN HFA 108 (90 BASE) MCG/ACT AERS 2 puffs four times a day PRN cough ALBUTEROL SULFATE 02859318758 No Longer Active Piotr Daley DO Active NYSTATIN-TRIAMCINOLONE 368844-0.1 UNIT/GM-% CREA Apply to area BID NYSTATIN-TRIAMCINOLONE 51685067176 No Longer Active Alena Jarvis Fan FOURTH MATE Active PHISOHEX 3 % LIQD Use Directed HEXACHLOROPHENE 58035567368 No Longer Active Sandra [place] Active AZITHROMYCIN 250 MG TABS 2 po qd x 1 day, then 1 po qd x 4 days AZITHROMYCIN 95127523332 No Longer Active Katrina Rinaldi MD PhD Active AZITHROMYCIN 250 MG TABS 2 po qd x 1 day, then 1 po qd x 4 days AZITHROMYCIN 69526638283 No Longer Active Piotr Daley DO Active AZITHROMYCIN 500 MG SOLR 1 po q day AZITHROMYCIN 96461344488 No Longer Active Piotr Daley DO Active NYSTATIN-TRIAMCINOLONE 084435-5.1 UNIT/GM-% CREA apply bid 08/19 NYSTATIN-TRIAMCINOLONE 22124052382 No Longer Active Piotr Daley DO Active IBUPROFEN 800 MG TABS 1 po q 8 hours prn pain sparinly IBUPROFEN 79839371638 No Longer Active Piotr Daley DO Active VITAMIN D3 5000 UNIT CAPS 1 po daily CHOLECALCIFEROL 05935331231 Active Piotr Daley DO Active IBUPROFEN 800 MG TABS 1 po q 8 hours prn pain sparinly IBUPROFEN 800 MG TABS IBUPROFEN Inactive NYSTATIN-TRIAMCINOLONE 752094-9.1 UNIT/GM-% CREA apply bid 08/19 NYSTATIN-TRIAMCINOLONE 386021-5.1 UNIT/GM-% CREA 9715765 NYSTATIN- TRIAMCINOLONE Inactive AZITHROMYCIN 500 MG SOLR 1 po q day AZITHROMYCIN 500 MG SOLR 354924 AZITHROMYCIN Inactive VENTOLIN HFA 108 (90 BASE) MCG/ACT AERS 2 puffs four times a day PRN cough VENTOLIN HFA 108 (90 BASE) MCG/ACT AERS ALBUTEROL SULFATE Inactive LISINOPRIL 10 MG TABS 1/2-1 tab po every other day LISINOPRIL 10 MG TABS 594829 LISINOPRIL Inactive TUSSIONEX PENNKINETIC ER 10-8 MG/5ML LQCR 5ml po q12hr PRN Cough TUSSIONEX PENNKINETIC ER 10-8 MG/5ML LQCR HYDROCOD POLST- CHLORPHEN POLST Inactive PROMETHAZINE HCL 25 MG TABS 1 four times a day as needed for nausea/vomiting PROMETHAZINE HCL 25 MG TABS 977158 PROMETHAZINE HCL Inactive PREDNISONE 20 MG TAB 1 tablet twice daily for 2 days, then 1 tablet once daily for 2 days PREDNISONE 20 MG TAB 534091 PREDNISONE Inactive WARFARIN SODIUM 4 MG TABS 1 tab every evening WARFARIN SODIUM 4 MG TABS 552316 WARFARIN SODIUM Inactive LOMOTIL 2.5-0.025 MG TAB 1 to 2 four times a day as needed for diarrhea 10/13 LOMOTIL 2.5-0.025 MG TAB 4920043 DIPHENOXYLATE-ATROPINE Inactive IBUPROFEN 800 MG TABS 1 tab every 8 hours as needed IBUPROFEN 800 MG TABS 214477 IBUPROFEN Inactive PREDNISONE 20 MG TAB 2 tablets today, then 1 tablet days 2 through 4 PREDNISONE 20 MG TAB 280211 PREDNISONE Inactive AZITHROMYCIN 250 MG TABS 2 po qd x 1 day, then 1 po qd x 4 days AZITHROMYCIN 250 MG TABS 5002279 AZITHROMYCIN Inactive AZITHROMYCIN 250 MG TABS 2 po qd x 1 day, then 1 po qd x 4 days AZITHROMYCIN 250 MG TABS 3990994 AZITHROMYCIN Inactive NYSTATIN-TRIAMCINOLONE 161694-0.1 UNIT/GM-% CREA Apply to area BID NYSTATIN-TRIAMCINOLONE 720336-7.1 UNIT/GM-% CREA 4830032 NYSTATIN-TRIAMCINOLONE Inactive AZITHROMYCIN 250 MG TABS 2 po qd x 1 day, then 1 po qd x 4 days AZITHROMYCIN 250 MG TABS 0885277 AZITHROMYCIN Inactive AZITHROMYCIN 250 MG TABS 2 po qd x 1 day, then 1 po qd x 4 days AZITHROMYCIN 250 MG TABS 8769982 AZITHROMYCIN Inactive AZITHROMYCIN 250 MG TABS 2 po qd x 1 day, then 1 po qd x 4 days AZITHROMYCIN 250 MG TABS 0525889 AZITHROMYCIN Inactive Advance Directives Directive Description Start [...] mg/g mg/g{creat} 0-29 sodium, serum 140 mmol/L 508-642 6992/07/17 potassium, serum 4.2 mmol/L 3.5-5.2 chloride, serum [...] ratio (INR) 2.5 1.0-3.5 prothrombin time (patient) 16.5 SECS s [...] 11.1-13.4 international normalized ratio (INR) 1.9 1.0-3.5 Encounters Code Encounter Date Provider Facility CPT-93548 Level 3 Est. Patient 15:14:31 RELATIONSHIP ADVISOR Piotr Daley DO [facility] CPT-22245 Level 3 Est. Patient 09:20:13 RELATIONSHIP ADVISOR Piotr Daley [facility] CPT-07377 Level 3 Est. Patient 09:49:40 CDT Piotr Daley [facility] CPT-90421 Level 3 Est. Patient 16:28:11 CDT Piotr Daley [facility] CPT-40242 Level 3 Est. Patient 12:41:58 RELATIONSHIP ADVISOR Piotr Daley [facility] CPT-42002 Level 3 Est. Patient 09:21:24 CDT Piotr Daley [facility] CPT-88254 Level 3 Est. Patient 09:21:11 CDT Piotr Daley [facility] CPT-94873 Level 3 Est. Patient 11:16:29 RELATIONSHIP ADVISOR Piotr Daley [facility] CPT-57970 Level 3 Est. Patient 18:40:19 RELATIONSHIP ADVISOR Piotr Daley [facility] CPT-26417 Level 3 Est. Patient 19:30:50 CDT Piotr Daley [facility] CPT-82274 Level 3 Est. Patient 22:06:44 CDT Katrina Rinaldi MD [facility] CPT-15934 Level 3 Est. Patient 14:20:00 CDT Piotr Wilson Edi [facility] CPT-80584 Level 3 Est. Patient 14:15:22 RELATIONSHIP ADVISOR Piotr Daley [facility] CPT-12133 Level 3 Est. Patient 20:19:57 RELATIONSHIP ADVISOR Piort Daley [facility] CPT-01230 Level 3 Est. Patient 16:44:32 CDT Piotr Daley [facility] CPT-59977 Level 3 Est. Patient 08:48:46 RELATIONSHIP ADVISOR Piotr Katie Daley [facility] CPT-34201 Level 3 Est. Patient 21:01:21 CDT Piotr Wilson [facility] Procedures Code Procedure Name Date Entry Date Standard Description CPT-99728 Thoracolumbar AP/Lat 15:19:19 RELATIONSHIP ADVISOR CPT-G0438 Initial Annual Wellness Exam 12:18:54 RELATIONSHIP ADVISOR CPT-02782 Knee 3V 09:57:38 CDT CPT-OV Office Visit 15:45:01 RELATIONSHIP ADVISOR CPT-56169 Abd compl w upright 17:10:25 CDT
--- OUTSIDE RECORDS SUMMARY | 2018-07-18 08:04 | XMS REPORT | Clinical Summary ---
[...] 1 tablet days 2 through 4 PREDNISONE 94340452062 No Longer Active Piotr Daley DO Active AZITHROMYCIN 250 MG TABS 2 po qd x 1 day, then 1 po qd x 4 days AZITHROMYCIN 51741922369 No Longer Active Piotr Daley DO Active IBUPROFEN 800 MG TABS 1 tab every 8 hours as needed IBUPROFEN 00407722021 No Longer Active Piotr Daley DO Active LOMOTIL 2.5-0.025 MG TAB 1 to 2 four times a day as needed for diarrhea 10/13 DIPHENOXYLATE-ATROPINE 77156453926 No Longer Active Piotr Daley DO Active WARFARIN SODIUM 5 MG TABS 1 tablet daily except for Saturday and 04/09 tablet. WARFARIN SODIUM 94531099141 Active Piotr Daley DO Active WARFARIN SODIUM 4 MG TABS 1 tab every evening WARFARIN SODIUM 69837907032 No Longer Active Piotr Daley DO Active PREDNISONE 20 MG TAB 1 tablet twice daily for 2 days, then 1 tablet once daily for 2 days PREDNISONE 89586523734 No Longer Active Piotr Daley DO Active PROMETHAZINE HCL 25 MG TABS 1 four times a day as needed for nausea/vomiting PROMETHAZINE HCL 91243133913 No Longer Active Piotr Daley DO Active TUSSIONEX PENNKINETIC ER 10-8 MG/5ML LQCR 5ml po q12hr PRN Cough HYDROCOD POLST-CHLORPHEN POLST 20765686384 No Longer Active Piotr Daley DO Active AZITHROMYCIN 250 MG TABS 2 po qd x 1 day, then 1 po qd x 4 days AZITHROMYCIN 02743362159 No Longer Active Piotr Daley DO Active AZITHROMYCIN 250 MG TABS 2 po qd x 1 day, then 1 po qd x 4 days AZITHROMYCIN 82828882942 No Longer Active Piotr Daley DO Active LISINOPRIL-HYDROCHLOROTHIAZIDE 10-12.5 MG TABS 1 tab by mouth daily LISINOPRIL-HYDROCHLOROTHIAZIDE 29406538306 Active Piotr aDley DO Active LISINOPRIL 10 MG TABS 1/2-1 tab po every other day LISINOPRIL 37517088780 No Longer Active Piotr Daley DO Active VENTOLIN HFA 108 (90 BASE) MCG/ACT AERS 2 puffs four times a day PRN cough ALBUTEROL SULFATE 87517070686 No Longer Active Piotr Daley DO Active NYSTATIN-TRIAMCINOLONE 730694-6.1 UNIT/GM-% CREA Apply to area BID NYSTATIN-TRIAMCINOLONE 92719743540 No Longer Active Alena Chavira TRIPLE VALVE TESTER Active PHISOHEX 3 % LIQD Use Directed HEXACHLOROPHENE 96994713836 No Longer Active Sandra [place] Active AZITHROMYCIN 250 MG TABS 2 po qd x 1 day, then 1 po qd x 4 days AZITHROMYCIN 01681239022 No Longer Active Katrina Rinaldi MD PhD Active AZITHROMYCIN 250 MG TABS 2 po qd x 1 day, then 1 po qd x 4 days AZITHROMYCIN 19371776072 No Longer Active Piotr Daley DO Active AZITHROMYCIN 500 MG SOLR 1 po q day AZITHROMYCIN 49496957519 No Longer Active Piotr Daley DO Active NYSTATIN-TRIAMCINOLONE 803776-1.1 UNIT/GM-% CREA apply bid 08/19 NYSTATIN-TRIAMCINOLONE 47086601732 No Longer Active Piotr Daley DO Active IBUPROFEN 800 MG TABS 1 po q 8 hours prn pain sparinly IBUPROFEN 19769559473 No Longer Active Piotr Daley DO Active VITAMIN D3 5000 UNIT CAPS 1 po daily CHOLECALCIFEROL 32812514321 Active Piotr Daley DO Active IBUPROFEN 800 MG TABS 1 po q 8 hours prn pain sparinly IBUPROFEN 800 MG TABS 925643 IBUPROFEN Inactive NYSTATIN-TRIAMCINOLONE 774140-4.1 UNIT/GM-% CREA apply bid 08/19 NYSTATIN-TRIAMCINOLONE 489285-5.1 UNIT/GM-% CREA 1997855 NYSTATIN- TRIAMCINOLONE Inactive AZITHROMYCIN 500 MG SOLR 1 po q day AZITHROMYCIN 500 MG SOLR 179558 AZITHROMYCIN Inactive VENTOLIN HFA 108 (90 BASE) MCG/ACT AERS 2 puffs four times a day PRN cough VENTOLIN HFA 108 (90 BASE) MCG/ACT AERS ALBUTEROL SULFATE Inactive LISINOPRIL 10 MG TABS 1/2-1 tab po every other day LISINOPRIL 10 MG TABS 748476 LISINOPRIL Inactive TUSSIONEX PENNKINETIC ER 10-8 MG/5ML LQCR 5ml po q12hr PRN Cough TUSSIONEX PENNKINETIC ER 10-8 MG/5ML LQCR HYDROCOD POLST- CHLORPHEN POLST Inactive PROMETHAZINE HCL 25 MG TABS 1 four times a day as needed for nausea/vomiting PROMETHAZINE HCL 25 MG TABS 278945 PROMETHAZINE HCL Inactive PREDNISONE 20 MG TAB 1 tablet twice daily for 2 days, then 1 tablet once daily for 2 days PREDNISONE 20 MG TAB 982653 PREDNISONE Inactive WARFARIN SODIUM 4 MG TABS 1 tab every evening WARFARIN SODIUM 4 MG TABS 856110 WARFARIN SODIUM Inactive LOMOTIL 2.5-0.025 MG TAB 1 to 2 four times a day as needed for diarrhea 10/13 LOMOTIL 2.5-0.025 MG TAB 6825555 DIPHENOXYLATE-ATROPINE Inactive IBUPROFEN 800 MG TABS 1 tab every 8 hours as needed IBUPROFEN 800 MG TABS 371895 IBUPROFEN Inactive PREDNISONE 20 MG TAB 2 tablets today, then 1 tablet days 2 through 4 PREDNISONE 20 MG TAB 622974 PREDNISONE Inactive AZITHROMYCIN 250 MG TABS 2 po qd x 1 day, then 1 po qd x 4 days AZITHROMYCIN 250 MG TABS 7931022 AZITHROMYCIN Inactive AZITHROMYCIN 250 MG TABS 2 po qd x 1 day, then 1 po qd x 4 days AZITHROMYCIN 250 MG TABS 1469566 AZITHROMYCIN Inactive NYSTATIN-TRIAMCINOLONE 179636-8.1 UNIT/GM-% CREA Apply to area BID NYSTATIN-TRIAMCINOLONE 143888-9.1 UNIT/GM-% CREA 1268045 NYSTATIN-TRIAMCINOLONE Inactive AZITHROMYCIN 250 MG TABS 2 po qd x 1 day, then 1 po qd x 4 days AZITHROMYCIN 250 MG TABS 2820514 AZITHROMYCIN Inactive AZITHROMYCIN 250 MG TABS 2 po qd x 1 day, then 1 po qd x 4 days AZITHROMYCIN 250 MG TABS 2569723 AZITHROMYCIN Inactive AZITHROMYCIN 250 MG TABS 2 po qd x 1 day, then 1 po qd x 4 days AZITHROMYCIN 250 MG TABS 1511178 AZITHROMYCIN Inactive Vital Signs Date Name Value [...] ... - Chemistry sodium, serum 142 mmol/L 023-181 9962/12/01 potassium, serum 4.7 mmol/L 3.5-5.2 chloride, serum [...] 142-424 Encounters Code Encounter Date Provider Facility CPT-09327 Level 3 Est. Patient 09:49:40 CDT Piotr Daley DO [facility] CPT-37511 Level 3 Est. Patient 16:28:11 CDT Piotr Daley [facility] CPT-20078 Level 3 Est. 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 Patient 09:21:24 CDT Piotr Daley [facility] CPT-54922 Level 3 Est. Patient 09:21:11 CDT Piotr Daley [facility] CPT-67113 Level 3 Est. Patient 11:16:29 CINDER BLOCK MAKER Piotr Daley [facility] CPT-60113 Level 3 Est. Patient 18:40:19 CINDER BLOCK MAKER Piotr Daley [facility] CPT-82438 Level 3 Est. Patient 19:30:50 CDT Piotr Daley [facility] CPT-03389 Level 3 Est. Patient 22:06:44 CDT Katrina Rinaldi MD PhD [facility] CPT-54779 Level 3 Est. Patient 14:20:00 CDT Piotr Daley [facility] CPT-10471 Level 3 Est. Patient 14:15:22 CINDER BLOCK MAKER Piotr Katie Daley [facility] CPT-81187 Level 3 Est. Patient 20:19:57 CINDER BLOCK MAKER Piotr Daley [facility] CPT-68952 Level 3 Est. Patient 16:44:32 CDT Piotr Katie Daley [facility] CPT-20643 Level 3 Est. Patient 08:48:46 CINDER BLOCK MAKER Piotr Wilson [facility] CPT-50813 Level 3 Est. Patient 21:01:21 CDT Piotr Katie Edi [facility] Procedures Code Procedure Name Date Entry Date Standard Description CPT-84898 Knee 3V 09:57:38 CDT CPT-OV Office Visit 15:45:01 CINDER BLOCK MAKER CPT-28972 Abd compl w upright 17:10:25 CDT
--- OUTSIDE RECORDS SUMMARY | 2018-07-18 08:05 | XMS REPORT | Clinical Summary ---
Author Author Admin, [employer] Address Unknown Phone Unavailable Allergies, Adverse Reactions, [...] neoplasm of prostate V10.46 Active Alina Meyers INVENTORY REPRESENTATIVE Personal history of malignant neoplasm of prostate Coronary artery disease 414.00 Active Alina Meyers APRN Coronary atherosclerosis of unspecified type of vessel, anvik or graft Back pain, thoracic region, left [...] times a day as needed ALBUTEROL SULFATE 79581081858 Active Matthew Rangel MD Active PREDNISONE 20 MG TAB 2 tabs daily for 3 days, 1 tab daily for 3 days, 1/2 tab daily for 2 days PREDNISONE 02005648959 No Longer Active Matthew Rangel MD Active TRAMADOL HCL 50 MG TABS 1 po tid with ES Tylenol TRAMADOL HCL 70331763070 No Longer Active Matthew Rangel MD Active GABAPENTIN 300 MG CAPS 1 po q hs for nerve pain GABAPENTIN 35823056717 No Longer Active Matthew Rangel MD Active WARFARIN SODIUM 5 MG TABS 1 tablet daily WARFARIN SODIUM 28985745781 Active Piotr Daley DO Active PREDNISONE 20 MG TAB 2 tablets today, then 1 tablet days 2 through 4 PREDNISONE 50617499889 No Longer Active Piotr Daley DO Active AZITHROMYCIN 250 MG TABS 2 po qd x 1 day, then 1 po qd x 4 days AZITHROMYCIN 53359465196 No Longer Active Piotr Daley DO Active IBUPROFEN 800 MG TABS 1 tab every 8 hours as needed IBUPROFEN 54711509215 No Longer Active Piotr Daley DO Active LOMOTIL 2.5-0.025 MG TAB 1 to 2 four times a day as needed for diarrhea 10/13 DIPHENOXYLATE-ATROPINE 17099168709 No Longer Active Piotr Daley DO Active WARFARIN SODIUM 4 MG TABS 1 tab every evening WARFARIN SODIUM 97504815072 No Longer Active Piotr Daley DO Active PREDNISONE 20 MG TAB 1 tablet twice daily for 2 days, then 1 tablet once daily for 2 days PREDNISONE 02590330106 No Longer Active Piotr Daley DO Active PROMETHAZINE HCL 25 MG TABS 1 four times a day as needed for nausea/vomiting PROMETHAZINE HCL 37429983469 No Longer Active Piotr Daley DO Active TUSSIONEX PENNKINETIC ER 10-8 MG/5ML LQCR 5ml po q12hr PRN Cough HYDROCOD POLST-CHLORPHEN POLST 45192777909 No Longer Active Piotr Daley DO Active AZITHROMYCIN 250 MG TABS 2 po qd x 1 day, then 1 po qd x 4 days AZITHROMYCIN 52206679094 No Longer Active Piotr Daley DO Active AZITHROMYCIN 250 MG TABS 2 po qd x 1 day, then 1 po qd x 4 days AZITHROMYCIN 61960755518 No Longer Active Piotr Daley DO Active LISINOPRIL-HYDROCHLOROTHIAZIDE 10-12.5 MG TABS 1 tab by mouth daily LISINOPRIL-HYDROCHLOROTHIAZIDE 40580813608 Active Simi Meyers Active LISINOPRIL 10 MG TABS 1/2-1 tab po every other day LISINOPRIL 94040488861 No Longer Active Piotr Daley DO Active VENTOLIN HFA 108 (90 BASE) MCG/ACT AERS 2 puffs four times a day PRN cough ALBUTEROL SULFATE 60148105044 No Longer Active Piotr Daley DO Active NYSTATIN-TRIAMCINOLONE 726541-5.1 UNIT/GM-% CREA Apply to area BID NYSTATIN-TRIAMCINOLONE 37491853536 No Longer Active Alena Chavira [employer]ODUCTION ROUSTABOUT Active PHISOHEX 3 % LIQD Use Directed HEXACHLOROPHENE 28193535112 No Longer Active [place] Active AZITHROMYCIN 250 MG TABS 2 po qd x 1 day, then 1 po qd x 4 days AZITHROMYCIN 60924905811 No Longer Active Katrina Rinaldi MD PhD Active AZITHROMYCIN 250 MG TABS 2 po qd x 1 day, then 1 po qd x 4 days AZITHROMYCIN 52199736431 No Longer Active Piotr Daley DO Active AZITHROMYCIN 500 MG SOLR 1 po q day AZITHROMYCIN 24443874750 No Longer Active Piotr Daley DO Active NYSTATIN-TRIAMCINOLONE 524781-0.1 UNIT/GM-% CREA apply bid 08/19 NYSTATIN-TRIAMCINOLONE 71735030047 No Longer Active Piotr Daley DO Active IBUPROFEN 800 MG TABS 1 po q 8 hours prn pain sparinly IBUPROFEN 55991500361 No Longer Active Piotr Daley DO Active VITAMIN D3 5000 UNIT CAPS 1 po daily CHOLECALCIFEROL 24238164128 Active Piotr Daley DO Active IBUPROFEN 800 MG TABS 1 po q 8 hours prn pain sparinly IBUPROFEN 800 MG TABS 011706 IBUPROFEN Inactive NYSTATIN-TRIAMCINOLONE 154813-3.1 UNIT/GM-% CREA apply bid 08/19 NYSTATIN-TRIAMCINOLONE 003300-3.1 UNIT/GM-% CREA 4056968 NYSTATIN- TRIAMCINOLONE Inactive AZITHROMYCIN 500 MG SOLR 1 po q day AZITHROMYCIN 500 MG SOLR 72938220320 AZITHROMYCIN Inactive VENTOLIN HFA 108 (90 BASE) MCG/ACT AERS 2 puffs four times a day PRN cough VENTOLIN HFA 108 (90 BASE) MCG/ACT AERS ALBUTEROL SULFATE Inactive LISINOPRIL 10 MG TABS 1/2-1 tab po every other day LISINOPRIL 10 MG TABS 900388 LISINOPRIL Inactive TUSSIONEX PENNKINETIC ER 10-8 MG/5ML LQCR 5ml po q12hr PRN Cough TUSSIONEX PENNKINETIC ER 10-8 MG/5ML LQCR HYDROCOD POLST- CHLORPHEN POLST Inactive PROMETHAZINE HCL 25 MG TABS 1 four times a day as needed for nausea/vomiting PROMETHAZINE HCL 25 MG TABS 531872 PROMETHAZINE HCL Inactive PREDNISONE 20 MG TAB 1 tablet twice daily for 2 days, then 1 tablet once daily for 2 days PREDNISONE 20 MG TAB 571208 PREDNISONE Inactive WARFARIN SODIUM 4 MG TABS 1 tab every evening WARFARIN SODIUM 4 MG TABS 468276 WARFARIN SODIUM Inactive LOMOTIL 2.5-0.025 MG TAB 1 to 2 four times a day as needed for diarrhea 10/13 LOMOTIL 2.5-0.025 MG TAB 7727543 DIPHENOXYLATE-ATROPINE Inactive IBUPROFEN 800 MG TABS 1 tab every 8 hours as needed IBUPROFEN 800 MG TABS 018844 IBUPROFEN Inactive PREDNISONE 20 MG TAB 2 tablets today, then 1 tablet days 2 through 4 PREDNISONE 20 MG TAB 711280 PREDNISONE Inactive GABAPENTIN 300 MG CAPS 1 po q hs for nerve pain GABAPENTIN 300 MG CAPS 301792 GABAPENTIN Inactive TRAMADOL HCL 50 MG TABS 1 po tid with ES Tylenol TRAMADOL HCL 50 MG TABS 709847 TRAMADOL HCL Inactive AZITHROMYCIN 250 MG TABS 2 po qd x 1 day, then 1 po qd x 4 days AZITHROMYCIN 250 MG TABS 4579184 AZITHROMYCIN Inactive AZITHROMYCIN 250 MG TABS 2 po qd x 1 day, then 1 po qd x 4 days AZITHROMYCIN 250 MG TABS 1076428 AZITHROMYCIN Inactive NYSTATIN-TRIAMCINOLONE 009623-4.1 UNIT/GM-% CREA Apply to area BID NYSTATIN-TRIAMCINOLONE 560050-7.1 UNIT/GM-% CREA 3683696 NYSTATIN-TRIAMCINOLONE Inactive AZITHROMYCIN 250 MG TABS 2 po qd x 1 day, then 1 po qd x 4 days AZITHROMYCIN 250 MG TABS 1782410 AZITHROMYCIN Inactive AZITHROMYCIN 250 MG TABS 2 po qd x 1 day, then 1 po qd x 4 days AZITHROMYCIN 250 MG TABS 9017837 AZITHROMYCIN Inactive AZITHROMYCIN 250 MG TABS 2 po qd x 1 day, then 1 po qd x 4 days AZITHROMYCIN 250 MG TABS 7734504 AZITHROMYCIN Inactive PREDNISONE 20 MG TAB 2 tabs daily for 3 days, 1 tab daily for 3 days, 1/2 tab daily for 2 days PREDNISONE 20 MG TAB 832350 PREDNISONE Inactive Advance Directives Directive Description Start [...] Panel - Chemistry sodium, serum 141 mmol/L 053-531 3538/01/24 potassium, serum 4.3 mmol/L 3.5-5.2 chloride, serum 103 mmol/L 98-107 carbon dioxide, venous blood 30.7 mmol/L 21.0-32.0 blood glucose 90 mg/dL 65-110 calcium, serum 8.5 mg/dL 8.5-10.1 urea nitrogen, blood 16 mg/dL 7-18 creatinine, serum 1.09 mg/dL 0.55-1.30 Lab Report: Comp. Metabolic Panel - Chemistry sodium, serum 141 mmol/L 474-554 2673/06/28 carbon dioxide, venous blood 31.0 mmol/L 21.0-32.0 [...] 1.0-3.5 Encounters Code Encounter Date Provider Facility CPT-75754 Level 3 Est. Patient 10:48:17 SOFTWARE IMPLEMENTATION SPECIALIST Matthew Rangel MD [facility] CPT-22176 Level 4 Est. Patient 17:15:07 SOFTWARE IMPLEMENTATION SPECIALIST Piotr Wilson [facility] CPT-42851 Level 3 Est. Patient 12:46:13 SOFTWARE IMPLEMENTATION SPECIALIST Piotr Daley [facility] CPT-89649 Level 3 Est. Patient 15:14:31 SOFTWARE IMPLEMENTATION SPECIALIST Piotr Daley [facility] CPT-42937 Level 3 Est. Patient 09:20:13 SOFTWARE IMPLEMENTATION SPECIALIST Piotr Daley [facility] CPT-47958 Level 3 Est. Patient 09:49:40 CDT Piotr Wilson [facility] CPT-54233 Level 3 Est. Patient 16:28:11 CDT Piotr Daley [facility] CPT-48192 Level 3 Est. Patient 12:41:58 SOFTWARE IMPLEMENTATION SPECIALIST Piotr Daley [facility] CPT-32941 Level 3 Est. Patient 09:21:24 CDT Piotr Daley [facility] CPT-23178 Level 3 Est. Patient 09:21:11 CDT Piotr Wilson [facility] CPT-86771 Level 3 Est. Patient 11:16:29 SOFTWARE IMPLEMENTATION SPECIALIST Piotr Daley [facility] CPT-05914 Level 3 Est. Patient 18:40:19 SOFTWARE IMPLEMENTATION SPECIALIST Piotr Daley [facility] CPT-66939 Level 3 Est. Patient 19:30:50 CDT Piotr Wilson [facility] CPT-03820 Level 3 Est. Patient 22:06:44 CDT Katrina Rinaldi MD [facility] CPT-02802 Level 3 Est. Patient 14:20:00 CDT Piotr Daley [facility] CPT-31123 Level 3 Est. Patient 14:15:22 SOFTWARE IMPLEMENTATION SPECIALIST Piotr Daley [facility] CPT-32886 Level 3 Est. Patient 20:19:57 SOFTWARE IMPLEMENTATION SPECIALIST Piotr Daley [facility] CPT-21953 Level 3 Est. Patient 16:44:32 CDT iPotr Daley [facility] CPT-43424 Level 3 Est. Patient 08:48:46 SOFTWARE IMPLEMENTATION SPECIALIST Piotr Daley [facility] CPT-14865 Level 3 Est. Patient 21:01:21 CDT Piotr Wilson [facility] Procedures Code Procedure Name Date Entry Date Standard Description CPT-14346 BMP - LAB USE ONLY 17:19:11 SOFTWARE IMPLEMENTATION SPECIALIST CPT-09778 PT/INR - LAB USE ONLY 17:19:10 SOFTWARE IMPLEMENTATION SPECIALIST CPT-82471 Venipuncture Draw Fee 17:19:10 SOFTWARE IMPLEMENTATION SPECIALIST CPT-35169 PT/INR - LAB USE ONLY 08:12:25 SOFTWARE IMPLEMENTATION SPECIALIST CPT-31381 Venipuncture Draw Fee 08:12:24 SOFTWARE IMPLEMENTATION SPECIALIST CPT-57338 Venipuncture Draw Fee 11:31:07 SOFTWARE IMPLEMENTATION SPECIALIST CPT-42270 TPSA - LAB USE ONLY 11:31:07 SOFTWARE IMPLEMENTATION SPECIALIST CPT-22175 PT/INR - LAB USE ONLY 11:31:07 SOFTWARE IMPLEMENTATION SPECIALIST CPT-G0439 [facility] Annual Wellness Exam 09:59:29 SOFTWARE IMPLEMENTATION SPECIALIST CPT-35590 Creatinine - LAB USE ONLY 14:37:55 SOFTWARE IMPLEMENTATION SPECIALIST CPT-19655 PT/INR - LAB USE ONLY 14:37:55 SOFTWARE IMPLEMENTATION SPECIALIST CPT-91699 Venipuncture Draw Fee 14:37:55 SOFTWARE IMPLEMENTATION SPECIALIST CPT-43145 LS spine comp w obliques - XRAY USE ONLY 12:59:25 SOFTWARE IMPLEMENTATION SPECIALIST CPT-72319 PT/INR - LAB USE ONLY 13:49:20 CDT CPT-15696 Venipuncture Draw Fee 13:49:19 CDT CPT-55768 PT/INR - LAB USE ONLY 15:48:49 CDT CPT-39297 Venipuncture Draw Fee 15:48:49 CDT CPT-73102 Venipuncture Draw Fee 11:31:59 CDT CPT-57226 PT/INR - LAB USE ONLY 11:31:59 CDT CPT-80707 Venipuncture Draw Fee 13:29:15 CDT CPT-26435 Thoracolumbar AP/Lat 15:19:19 SOFTWARE IMPLEMENTATION SPECIALIST CPT-G0438 Initial Annual Wellness Exam 12:18:54 SOFTWARE IMPLEMENTATION SPECIALIST CPT-05889 Knee 3V 09:57:38 CDT CPT-OV Office Visit 15:45:01 SOFTWARE IMPLEMENTATION SPECIALIST CPT-59173 Abd compl w upright 17:10:25 CDT
--- OUTSIDE RECORDS SUMMARY | 2018-07-18 08:06 | XMS REPORT | Clinical Summary ---
Author Author Admin, YONG Organization [facility] Address Unknown Phone Unavailable Allergies, Adverse Reactions, [...] 1 tablet days 2 through 4 PREDNISONE 32816613166 No Longer Active Piotr Daley DO Active AZITHROMYCIN 250 MG TABS 2 po qd x 1 day, then 1 po qd x 4 days AZITHROMYCIN 07887446337 No Longer Active Piotr Daley DO Active IBUPROFEN 800 MG TABS 1 tab every 8 hours as needed IBUPROFEN 82342496478 No Longer Active Piotr Daley DO Active LOMOTIL 2.5-0.025 MG TAB 1 to 2 four times a day as needed for diarrhea 10/13 DIPHENOXYLATE-ATROPINE 75629731388 No Longer Active Piotr Daley DO Active WARFARIN SODIUM 5 MG TABS 1 tablet daily except for Saturday and 04/09 tablet. WARFARIN SODIUM 82077766979 Active Piotr Daley DO Active WARFARIN SODIUM 4 MG TABS 1 tab every evening WARFARIN SODIUM 73192932347 No Longer Active Piotr Daley DO Active PREDNISONE 20 MG TAB 1 tablet twice daily for 2 days, then 1 tablet once daily for 2 days PREDNISONE 75014887513 No Longer Active Piotr Daley DO Active PROMETHAZINE HCL 25 MG TABS 1 four times a day as needed for nausea/vomiting PROMETHAZINE HCL 05379164207 No Longer Active Piotr Daley DO Active TUSSIONEX PENNKINETIC ER 10-8 MG/5ML LQCR 5ml po q12hr PRN Cough HYDROCOD POLST-CHLORPHEN POLST 32281606203 No Longer Active Piotr Daley DO Active AZITHROMYCIN 250 MG TABS 2 po qd x 1 day, then 1 po qd x 4 days AZITHROMYCIN 31001843612 No Longer Active Piotr Daley DO Active AZITHROMYCIN 250 MG TABS 2 po qd x 1 day, then 1 po qd x 4 days AZITHROMYCIN 93265442365 No Longer Active Piotr Daley DO Active LISINOPRIL-HYDROCHLOROTHIAZIDE 10-12.5 MG TABS 1 tab by mouth daily LISINOPRIL-HYDROCHLOROTHIAZIDE 91336810932 Active Piotr Daley DO Active LISINOPRIL 10 MG TABS 1/2-1 tab po every other day LISINOPRIL 78032554696 No Longer Active Piotr Daley DO Active VENTOLIN HFA 108 (90 BASE) MCG/ACT AERS 2 puffs four times a day PRN cough ALBUTEROL SULFATE 61281164588 No Longer Active Piotr Daley DO Active NYSTATIN-TRIAMCINOLONE 054856-3.1 UNIT/GM-% CREA Apply to area BID NYSTATIN-TRIAMCINOLONE 43919510742 No Longer Active Alena D Fan [employer]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 PHISOHEX 3 % LIQD Use Directed HEXACHLOROPHENE 70207081050 No Longer Active Sandra [place] Active AZITHROMYCIN 250 MG TABS 2 po qd x 1 day, then 1 po qd x 4 days AZITHROMYCIN 13629012575 No Longer Active Katrina Rinaldi MD PhD Active AZITHROMYCIN 250 MG TABS 2 po qd x 1 day, then 1 po qd x 4 days AZITHROMYCIN 54758879950 No Longer Active Piotr Daley DO Active AZITHROMYCIN 500 MG SOLR 1 po q day AZITHROMYCIN 64984566153 No Longer Active Piotr Daley DO Active NYSTATIN-TRIAMCINOLONE 473771-9.1 UNIT/GM-% CREA apply bid 08/19 NYSTATIN-TRIAMCINOLONE 35569263100 No Longer Active Piotr Daley DO Active IBUPROFEN 800 MG TABS 1 po q 8 hours prn pain sparinly IBUPROFEN 32185200335 No Longer Active Piotr Daley DO Active VITAMIN D3 5000 UNIT CAPS 1 po daily CHOLECALCIFEROL 81083527381 Active Piotr Daley DO Active IBUPROFEN 800 MG TABS 1 po q 8 hours prn pain sparinly IBUPROFEN 800 MG TABS 715293 IBUPROFEN Inactive NYSTATIN-TRIAMCINOLONE 831610-0.1 UNIT/GM-% CREA apply bid 08/19 NYSTATIN-TRIAMCINOLONE 859757-0.1 UNIT/GM-% CREA 2063109 NYSTATIN- TRIAMCINOLONE Inactive AZITHROMYCIN 500 MG SOLR 1 po q day AZITHROMYCIN 500 MG SOLR 683655 AZITHROMYCIN Inactive VENTOLIN HFA 108 (90 BASE) MCG/ACT AERS 2 puffs four times a day PRN cough VENTOLIN HFA 108 (90 BASE) MCG/ACT AERS ALBUTEROL SULFATE Inactive LISINOPRIL 10 MG TABS 1/2-1 tab po every other day LISINOPRIL 10 MG TABS 718039 LISINOPRIL Inactive TUSSIONEX PENNKINETIC ER 10-8 MG/5ML LQCR 5ml po q12hr PRN Cough TUSSIONEX PENNKINETIC ER 10-8 MG/5ML LQCR HYDROCOD POLST- CHLORPHEN POLST Inactive PROMETHAZINE HCL 25 MG TABS 1 four times a day as needed for nausea/vomiting PROMETHAZINE HCL 25 MG TABS 444426 PROMETHAZINE HCL Inactive PREDNISONE 20 MG TAB 1 tablet twice daily for 2 days, then 1 tablet once daily for 2 days PREDNISONE 20 MG TAB 446959 PREDNISONE Inactive WARFARIN SODIUM 4 MG TABS 1 tab every evening WARFARIN SODIUM 4 MG TABS 455265 WARFARIN SODIUM Inactive LOMOTIL 2.5-0.025 MG TAB 1 to 2 four times a day as needed for diarrhea 10/13 LOMOTIL 2.5-0.025 MG TAB 5956608 DIPHENOXYLATE-ATROPINE Inactive IBUPROFEN 800 MG TABS 1 tab every 8 hours as needed IBUPROFEN 800 MG TABS 918044 IBUPROFEN Inactive PREDNISONE 20 MG TAB 2 tablets today, then 1 tablet days 2 through 4 PREDNISONE 20 MG TAB 083776 PREDNISONE Inactive AZITHROMYCIN 250 MG TABS 2 po qd x 1 day, then 1 po qd x 4 days AZITHROMYCIN 250 MG TABS 0128433 AZITHROMYCIN Inactive AZITHROMYCIN 250 MG TABS 2 po qd x 1 day, then 1 po qd x 4 days AZITHROMYCIN 250 MG TABS 5042143 AZITHROMYCIN Inactive NYSTATIN-TRIAMCINOLONE 686466-2.1 UNIT/GM-% CREA Apply to area BID NYSTATIN-TRIAMCINOLONE 896039-8.1 UNIT/GM-% CREA 1149983 NYSTATIN-TRIAMCINOLONE Inactive AZITHROMYCIN 250 MG TABS 2 po qd x 1 day, then 1 po qd x 4 days AZITHROMYCIN 250 MG TABS 8811467 AZITHROMYCIN Inactive AZITHROMYCIN 250 MG TABS 2 po qd x 1 day, then 1 po qd x 4 days AZITHROMYCIN 250 MG TABS 0092631 AZITHROMYCIN Inactive AZITHROMYCIN 250 MG TABS 2 po qd x 1 day, then 1 po qd x 4 days AZITHROMYCIN 250 MG TABS 8237622 AZITHROMYCIN Inactive Vital Signs Date Name Value [...] ... - Chemistry sodium, serum 142 mmol/L 241-290 1532/12/01 potassium, serum 4.7 mmol/L 3.5-5.2 chloride, serum [...] 142-424 Encounters Code Encounter Date Provider Facility CPT-04229 Level 3 Est. Patient 09:49:40 CDT Piotr Daley [facility] CPT-40186 Level 3 Est. Patient 16:28:11 CDT Piotr Daley [facility] CPT-05213 Level 3 Est. 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 Patient 09:21:24 CDT Piotr Daley [facility] CPT-21759 Level 3 Est. Patient 09:21:11 CDT Piotr Daley [facility] CPT-15566 Level 3 Est. Patient 11:16:29 DECORATING SUPERVISOR Piotr Daley [facility] CPT-38537 Level 3 Est. Patient 18:40:19 DECORATING SUPERVISOR Piotr Daley [facility] CPT-40044 Level 3 Est. Patient 19:30:50 CDT Piotr Daley [facility] CPT-86852 Level 3 Est. Patient 22:06:44 CDT Katrina Rinaldi MD [facility] CPT-87641 Level 3 Est. Patient 14:20:00 CDT Piotr Daley [facility] CPT-31995 Level 3 Est. Patient 14:15:22 DECORATING SUPERVISOR Piotr Daley [facility] CPT-08906 Level 3 Est. Patient 20:19:57 DECORATING SUPERVISOR Piotr Daley [facility] CPT-61457 Level 3 Est. Patient 16:44:32 CDT Piotr Daley [facility] CPT-71159 Level 3 Est. Patient 08:48:46 DECORATING SUPERVISOR Piotr Daley [facility] CPT-78180 Level 3 Est. Patient 21:01:21 CDT Piotr Daley [facility] Procedures Code Procedure Name Date Entry Date Standard Description CPT-78180 Knee 3V 09:57:38 CDT CPT-OV Office Visit 15:45:01 DECORATING SUPERVISOR CPT-15096 Abd compl w upright 17:10:25 CDT
--- OUTSIDE RECORDS SUMMARY | 2018-07-18 08:06 | XMS REPORT | Clinical Summary ---
Author Author Admin, E Organization [employer] Address Unknown Phone Unavailable Allergies, Adverse Reactions, [...] neoplasm of prostate V10.46 Active Alina Meyers GLOBAL COMPENSATION DIRECTOR Personal history of malignant neoplasm of prostate Coronary artery disease 414.00 Active Alina Luigi GLOBAL COMPENSATION DIRECTOR Coronary atherosclerosis of unspecified type of vessel, pitka's point or graft Back pain, thoracic region, [...] MG TABS 1 tablet daily WARFARIN SODIUM 96631749063 Active Simi Meyers Active TRAMADOL HCL 50 MG TABS 1 po tid with ES Tylenol TRAMADOL HCL 01958187118 Active Piotr Daley DO Active PREDNISONE 20 MG TAB 2 tablets today, then 1 tablet days 2 through 4 PREDNISONE 95159343073 No Longer Active Piotr Daley DO Active AZITHROMYCIN 250 MG TABS 2 po qd x 1 day, then 1 po qd x 4 days AZITHROMYCIN 07930646807 No Longer Active Piotr Daley DO Active IBUPROFEN 800 MG TABS 1 tab every 8 hours as needed IBUPROFEN 16256662287 No Longer Active Piotr Daley DO Active LOMOTIL 2.5-0.025 MG TAB 1 to 2 four times a day as needed for diarrhea 10/13 DIPHENOXYLATE-ATROPINE 33275633779 No Longer Active Piotr Daley DO Active WARFARIN SODIUM 4 MG TABS 1 tab every evening WARFARIN SODIUM 57447531467 No Longer Active Piotr Daley DO Active PREDNISONE 20 MG TAB 1 tablet twice daily for 2 days, then 1 tablet once daily for 2 days PREDNISONE 25204598981 No Longer Active Piotr Daley DO Active PROMETHAZINE HCL 25 MG TABS 1 four times a day as needed for nausea/vomiting PROMETHAZINE HCL 37870050674 No Longer Active Piotr Daley DO Active TUSSIONEX PENNKINETIC ER 10-8 MG/5ML LQCR 5ml po q12hr PRN Cough HYDROCOD POLST-CHLORPHEN POLST 06292103338 No Longer Active Piotr Daley DO Active AZITHROMYCIN 250 MG TABS 2 po qd x 1 day, then 1 po qd x 4 days AZITHROMYCIN 92481670971 No Longer Active Piotr Daley DO Active AZITHROMYCIN 250 MG TABS 2 po qd x 1 day, then 1 po qd x 4 days AZITHROMYCIN 19141159147 No Longer Active Piotr Daley DO Active LISINOPRIL-HYDROCHLOROTHIAZIDE 10-12.5 MG TABS 1 tab by mouth daily LISINOPRIL-HYDROCHLOROTHIAZIDE 88195943579 Active Hilary Ma MA Active LISINOPRIL 10 MG TABS 1/2-1 tab po every other day LISINOPRIL 39531840314 No Longer Active Piotr Daley DO Active VENTOLIN HFA 108 (90 BASE) MCG/ACT AERS 2 puffs four times a day PRN cough ALBUTEROL SULFATE 29527548034 No Longer Active Piotr Daley DO Active NYSTATIN-TRIAMCINOLONE 493045-9.1 UNIT/GM-% CREA Apply to area BID NYSTATIN-TRIAMCINOLONE 79314942367 No Longer Active Alena Oswaldum ORCHARD WORKER Active PHISOHEX 3 % LIQD Use Directed HEXACHLOROPHENE 26708354575 No Longer Active Sandra [place] Active AZITHROMYCIN 250 MG TABS 2 po qd x 1 day, then 1 po qd x 4 days AZITHROMYCIN 04827531436 No Longer Active Katrina Rinaldi MD PhD Active AZITHROMYCIN 250 MG TABS 2 po qd x 1 day, then 1 po qd x 4 days AZITHROMYCIN 37401014891 No Longer Active Piotr Daley DO Active AZITHROMYCIN 500 MG SOLR 1 po q day AZITHROMYCIN 53914442261 No Longer Active Piotr Daley DO Active NYSTATIN-TRIAMCINOLONE 651366-3.1 UNIT/GM-% CREA apply bid 08/19 NYSTATIN-TRIAMCINOLONE 35543940125 No Longer Active Piotr Daley DO Active IBUPROFEN 800 MG TABS 1 po q 8 hours prn pain sparinly IBUPROFEN 19721641281 No Longer Active Piotr Daley DO Active VITAMIN D3 5000 UNIT CAPS 1 po daily CHOLECALCIFEROL 13972909078 Active Piotr Daley DO Active IBUPROFEN 800 MG TABS 1 po q 8 hours prn pain sparinly IBUPROFEN 800 MG TABS 198391 IBUPROFEN Inactive NYSTATIN-TRIAMCINOLONE 994287-9.1 UNIT/GM-% CREA apply bid 08/19 NYSTATIN-TRIAMCINOLONE 613906-9.1 UNIT/GM-% CREA 6167491 NYSTATIN- TRIAMCINOLONE Inactive AZITHROMYCIN 500 MG SOLR 1 po q day AZITHROMYCIN 500 MG SOLR 35156650148 AZITHROMYCIN Inactive VENTOLIN HFA 108 (90 BASE) MCG/ACT AERS 2 puffs four times a day PRN cough VENTOLIN HFA 108 (90 BASE) MCG/ACT AERS ALBUTEROL SULFATE Inactive LISINOPRIL 10 MG TABS 1/2-1 tab po every other day LISINOPRIL 10 MG TABS 432304 LISINOPRIL Inactive TUSSIONEX PENNKINETIC ER 10-8 MG/5ML LQCR 5ml po q12hr PRN Cough TUSSIONEX PENNKINETIC ER 10-8 MG/5ML LQCR HYDROCOD POLST- CHLORPHEN POLST Inactive PROMETHAZINE HCL 25 MG TABS 1 four times a day as needed for nausea/vomiting PROMETHAZINE HCL 25 MG TABS 642407 PROMETHAZINE HCL Inactive PREDNISONE 20 MG TAB 1 tablet twice daily for 2 days, then 1 tablet once daily for 2 days PREDNISONE 20 MG TAB 736667 PREDNISONE Inactive WARFARIN SODIUM 4 MG TABS 1 tab every evening WARFARIN SODIUM 4 MG TABS 361009 WARFARIN SODIUM Inactive LOMOTIL 2.5-0.025 MG TAB 1 to 2 four times a day as needed for diarrhea 10/13 LOMOTIL 2.5-0.025 MG TAB 7762137 DIPHENOXYLATE-ATROPINE Inactive IBUPROFEN 800 MG TABS 1 tab every 8 hours as needed IBUPROFEN 800 MG TABS 206443 IBUPROFEN Inactive PREDNISONE 20 MG TAB 2 tablets today, then 1 tablet days 2 through 4 PREDNISONE 20 MG TAB 391378 PREDNISONE Inactive AZITHROMYCIN 250 MG TABS 2 po qd x 1 day, then 1 po qd x 4 days AZITHROMYCIN 250 MG TABS 1772286 AZITHROMYCIN Inactive AZITHROMYCIN 250 MG TABS 2 po qd x 1 day, then 1 po qd x 4 days AZITHROMYCIN 250 MG TABS 5149370 AZITHROMYCIN Inactive NYSTATIN-TRIAMCINOLONE 395116-6.1 UNIT/GM-% CREA Apply to area BID NYSTATIN-TRIAMCINOLONE 121066-4.1 UNIT/GM-% CREA 3032962 NYSTATIN-TRIAMCINOLONE Inactive AZITHROMYCIN 250 MG TABS 2 po qd x 1 day, then 1 po qd x 4 days AZITHROMYCIN 250 MG TABS 9492973 AZITHROMYCIN Inactive AZITHROMYCIN 250 MG TABS 2 po qd x 1 day, then 1 po qd x 4 days AZITHROMYCIN 250 MG TABS 6428176 AZITHROMYCIN Inactive AZITHROMYCIN 250 MG TABS 2 po qd x 1 day, then 1 po qd x 4 days AZITHROMYCIN 250 MG TABS 1272904 AZITHROMYCIN Inactive Advance Directives Directive Description Start [...] Panel - Chemistry sodium, serum 141 mmol/L 216-961 3040/06/28 carbon dioxide, venous blood 31.0 mmol/L 21.0-32.0 [...] Negative Encounters Code Encounter Date Provider Facility CPT-62120 Level 3 Est. Patient 15:14:31 CLASSROOM PARAPROFESSIONAL Piotr Daley [facility] CPT-36824 Level 3 Est. Patient 09:20:13 CLASSROOM PARAPROFESSIONAL Piotr Daley [facility] CPT-46619 Level 3 Est. Patient 09:49:40 CDT Piotr Daley [facility] CPT-02905 Level 3 Est. Patient 16:28:11 CDT Piotr Daley [facility] CPT-78514 Level 3 Est. Patient 12:41:58 CLASSROOM PARAPROFESSIONAL Piotr Katie Daley [facility] CPT-87695 Level 3 Est. Patient 09:21:24 CDT Piotr Daley [facility] CPT-47976 Level 3 Est. Patient 09:21:11 CDT Piotr Daley [facility] CPT-58253 Level 3 Est. Patient 11:16:29 CLASSROOM PARAPROFESSIONAL Piotr Daley [facility] CPT-23579 Level 3 Est. Patient 18:40:19 CLASSROOM PARAPROFESSIONAL Piotr Daley [facility] CPT-86009 Level 3 Est. Patient 19:30:50 CDT Piotr Daley [facility] CPT-21960 Level 3 Est. Patient 22:06:44 CDT Katrina Rinaldi MD [facility] CPT-78153 Level 3 Est. Patient 14:20:00 CDT Piotr Daley [facility] CPT-77617 Level 3 Est. Patient 14:15:22 CLASSROOM PARAPROFESSIONAL Piotr Daley [facility] CPT-08477 Level 3 Est. Patient 20:19:57 CLASSROOM PARAPROFESSIONAL Piotr Daley [facility] CPT-82223 Level 3 Est. Patient 16:44:32 CDT Piotr Daley [facility] CPT-59893 Level 3 Est. Patient 08:48:46 CLASSROOM PARAPROFESSIONAL Piotr Daley [facility] CPT-31372 Level 3 Est. Patient 21:01:21 CDT Piotr Daley [facility] Procedures Code Procedure Name Date Entry Date Standard Description CPT-35827 PT/INR - LAB USE ONLY 15:48:49 CDT CPT-10967 Venipuncture Draw Fee 15:48:49 CDT CPT-57348 Venipuncture Draw Fee 11:31:59 CDT CPT-18621 PT/INR - LAB USE ONLY 11:31:59 CDT CPT-49164 Venipuncture Draw Fee 13:29:15 CDT CPT-46558 Thoracolumbar AP/Lat 15:19:19 CLASSROOM PARAPROFESSIONAL CPT-G0438 Initial Annual Wellness Exam 12:18:54 CLASSROOM PARAPROFESSIONAL CPT-42529 Knee 3V 09:57:38 CDT CPT-OV Office Visit 15:45:01 CLASSROOM PARAPROFESSIONAL CPT-16048 Abd compl w upright 17:10:25 CDT
--- OUTSIDE RECORDS SUMMARY | 2018-07-18 08:07 | XMS REPORT | Clinical Summary ---
Author Author Admin, Btia Organization [employer] Address Unknown Phone Unavailable Allergies, Adverse Reactions, [...] Coronary atherosclerosis of unspecified type of vessel, torres martinez or graft Back pain, thoracic region, left [...] Knee pain, left ICD-719.46 Inactive Sirisha Chen CALENDER TENDER Actinic keratoses ICD-702.0 Inactive Sirisha Chen CALENDER TENDER Back pain, thoracic region, left ICD-724.1 Inactive Piotr Daley DO Thoracic back pain ICD-724.5 Inactive Sirisha Chen CALENDER TENDER Back pain lumbar ICD-724.2 Inactive Sirisha Chen CALENDER TENDER Insect bite ICD-919.4 Inactive Sirisha Chen CALENDER TENDER Pruritus ICD-698.9 Inactive Sirisha Chen CALENDER TENDER 04/09 Bronchitis-Acute ICD-466.0 Inactive Sirisha Chen CALENDER TENDER Dyspnea ICD-786.09 Inactive Sirisha Chen CALENDER TENDER 05/09 Medication List Medication Instructions Start Date Stop Date Generic Name NDC Status Provider Patient Instruction WARFARIN SODIUM 4 MG ORAL TABLET 1 tablet by mouth daily except 2mg on Saturday and Saturday WARFARIN SODIUM 16005265532 Active Anahy Loja Active MELOXICAM 15 MG ORAL TABLET 1 po q day for pain with food MELOXICAM 57847245735 Active Piotr Daley DO Active PREDNISONE 10 MG ORAL TABLET 1 tablet by mouth daily PREDNISONE 88729132640 No Longer Active Emelyn Norris Active TESSALON PERLES 100 MG ORAL CAPSULE 1-2 tablet by mouth 3 times daily 04/16 BENZONATATE 37625396579 No Longer Active Emelyn Norris Active PREDNISONE 20 MG ORAL TABLET two tabs by mouth today, then one tab by mouth days two and three PREDNISONE 10012174569 No Longer Active Piotr W Edi DO Active CYCLOBENZAPRINE HCL 10 MG ORAL TABLET 1 tablet by mouth three times daily as needed for muscle spasm/pain CYCLOBENZAPRINE HCL 22105413862 Active Sirisha Chen LPN Active ZITHROMAX 250 MG ORAL TABLET Take two (2 ) tablets day one, then one (1) tablet a day for four (4) more days AZITHROMYCIN 67417298755 No Longer Active Piotr Daley DO Active PROAIR HFA 108 (90 BASE) MCG/ACT INHALATION AEROSOL SOLUTION 1-2 puffs four times a day as needed ALBUTEROL SULFATE 74807908186 No Longer Active Emelyn Norris Active DOXYCYCLINE HYCLATE 100 MG ORAL CAPSULE 1 cap by mouth BID x10 days DOXYCYCLINE HYCLATE 10115223153 No Longer Active Nella Harris APRN Active PREDNISONE 20 MG ORAL TABLET 2 tabs daily for 3 days, 1 tab daily for 3 days, 1/2 tab daily for 2 days PREDNISONE 40064053649 No Longer Active Matthew Rangel MD Active TRAMADOL HCL 50 MG ORAL TABLET 1 po tid with ES Tylenol TRAMADOL HCL 50380595568 No Longer Active Matthew Rangel MD Active GABAPENTIN 300 MG ORAL CAPSULE 1 po q hs for nerve pain GABAPENTIN 49028548189 No Longer Active Matthew Rangel MD Active PREDNISONE 20 MG ORAL TABLET 2 tablets today, then 1 tablet days 2 through 4 PREDNISONE 51922434536 No Longer Active Piotr Daley DO Active AZITHROMYCIN 250 MG ORAL TABLET 2 po qd x 1 day, then 1 po qd x 4 days 07/12 AZITHROMYCIN 75885513885 No Longer Active Piotr Daley DO Active IBUPROFEN 800 MG ORAL TABLET 1 tab every 8 hours as needed 07/12 IBUPROFEN 81155946493 No Longer Active Piotr Daley DO Active LOMOTIL 2.5-0.025 MG ORAL TABLET 1 to 2 four times a day as needed for diarrhea DIPHENOXYLATE-ATROPINE 21788426721 No Longer Active Piotr Daley DO Active WARFARIN SODIUM 4 MG ORAL TABLET 1 tab every evening WARFARIN SODIUM 12833607574 No Longer Active Piotr Daley DO Active PREDNISONE 20 MG ORAL TABLET 1 tablet twice daily for 2 days, then 1 tablet once daily for 2 days PREDNISONE 02133438369 No Longer Active Piotr Daley DO Active PROMETHAZINE HCL 25 MG ORAL TABLET 1 four times a day as needed for nausea/ vomiting PROMETHAZINE HCL 71290801627 No Longer Active Piotr Daley DO Active TUSSIONEX PENNKINETIC ER 10-8 MG/5ML ORAL SUSPENSION EXTENDED RELEASE 5ml po q12hr PRN Cough HYDROCOD POLST-CHLORPHEN POLST 24401567780 No Longer Active Piotr Daley DO Active AZITHROMYCIN 250 MG ORAL TABLET 2 po qd x 1 day, then 1 po qd x 4 days 10/13 AZITHROMYCIN 28563396192 No Longer Active Piotr Daley DO Active AZITHROMYCIN 250 MG ORAL TABLET 2 po qd x 1 day, then 1 po qd x 4 days 05/07 AZITHROMYCIN 14800512467 No Longer Active Piotr Daley DO Active LISINOPRIL-HYDROCHLOROTHIAZIDE 10-12.5 MG ORAL TABLET 1 tab by mouth daily LISINOPRIL-HYDROCHLOROTHIAZIDE 90489592265 Active Piotr Daley DO Active LISINOPRIL 10 MG ORAL TABLET 1/2-1 tab po every other day LISINOPRIL 48131322056 No Longer Active Piotr Daley DO Active VENTOLIN HFA 108 (90 Base) MCG/ACT INHALATION AEROSOL SOLUTION 2 puffs four times a day PRN cough ALBUTEROL SULFATE 48209859159 No Longer Active Piotr Daley DO Active NYSTATIN-TRIAMCINOLONE 114049-3.1 UNIT/GM-% EXTERNAL CREAM Apply to area BID NYSTATIN-TRIAMCINOLONE 97481444294 No Longer Active Alena Chavira CALENDER TENDER Active PHISOHEX 3 % LIQD Use Directed HEXACHLOROPHENE 71649553583 No Longer Active Sandra [place] Active AZITHROMYCIN 250 MG ORAL TABLET 2 po qd x 1 day, then 1 po qd x 4 days 10/21 AZITHROMYCIN 27172780062 No Longer Active Katrina Rinaldi MD PhD Active AZITHROMYCIN 250 MG ORAL TABLET 2 po qd x 1 day, then 1 po qd x 4 days 10/16 AZITHROMYCIN 68175318992 No Longer Active Piotr Daley DO Active AZITHROMYCIN 500 MG INTRAVENOUS SOLUTION RECONSTITUTED 1 po q day AZITHROMYCIN 96521116214 No Longer Active Piotr Daley DO Active NYSTATIN-TRIAMCINOLONE 475839-6.1 UNIT/GM-% EXTERNAL CREAM apply bid NYSTATIN-TRIAMCINOLONE 68124974263 No Longer Active Piotr Daley DO Active IBUPROFEN 800 MG ORAL TABLET 1 po q 8 hours prn pain sparinly IBUPROFEN 38588856792 No Longer Active Piotr Daley DO Active VITAMIN D3 5000 UNIT ORAL CAPSULE 1 po daily CHOLECALCIFEROL 51365333577 Active Piotr Daley DO Active IBUPROFEN 800 MG ORAL TABLET 1 po q 8 hours prn pain sparinly IBUPROFEN 800 MG ORAL TABLET 161478 IBUPROFEN Inactive NYSTATIN-TRIAMCINOLONE 564220-9.1 UNIT/GM-% EXTERNAL CREAM apply bid NYSTATIN-TRIAMCINOLONE 924317-9.1 UNIT/GM-% EXTERNAL CREAM 2800330 NYSTATIN-TRIAMCINOLONE Inactive AZITHROMYCIN 500 MG INTRAVENOUS SOLUTION RECONSTITUTED 1 po q day AZITHROMYCIN 500 MG INTRAVENOUS SOLUTION RECONSTITUTED 51885824554 AZITHROMYCIN Inactive VENTOLIN HFA 108 (90 Base) MCG/ACT INHALATION AEROSOL SOLUTION 2 puffs four times a day PRN cough VENTOLIN HFA 108 (90 Base) MCG/ ACT INHALATION AEROSOL SOLUTION ALBUTEROL SULFATE Inactive LISINOPRIL 10 MG ORAL TABLET 1/2-1 tab po every other day LISINOPRIL 10 MG ORAL TABLET 724471 LISINOPRIL Inactive TUSSIONEX PENNKINETIC ER 10-8 MG/5ML ORAL SUSPENSION EXTENDED RELEASE 5ml po q12hr PRN Cough TUSSIONEX PENNKINETIC ER 10-8 MG/5ML ORAL SUSPENSION EXTENDED RELEASE HYDROCOD POLST-CHLORPHEN POLST Inactive PROMETHAZINE HCL 25 MG ORAL TABLET 1 four times a day as needed for nausea/ vomiting PROMETHAZINE HCL 25 MG ORAL TABLET 966072 PROMETHAZINE HCL Inactive PREDNISONE 20 MG ORAL TABLET 1 tablet twice daily for 2 days, then 1 tablet once daily for 2 days PREDNISONE 20 MG ORAL TABLET 235938 PREDNISONE Inactive WARFARIN SODIUM 4 MG ORAL TABLET 1 tab every evening WARFARIN SODIUM 4 MG ORAL TABLET 325080 WARFARIN SODIUM Inactive LOMOTIL 2.5-0.025 MG ORAL TABLET 1 to 2 four times a day as needed for diarrhea LOMOTIL 2.5-0.025 MG ORAL TABLET 4939265 DIPHENOXYLATE-ATROPINE Inactive IBUPROFEN 800 MG ORAL TABLET 1 tab every 8 hours as needed 07/12 IBUPROFEN 800 MG ORAL TABLET 177498 IBUPROFEN Inactive PREDNISONE 20 MG ORAL TABLET 2 tablets today, then 1 tablet days 2 through 4 PREDNISONE 20 MG ORAL TABLET 944371 PREDNISONE Inactive GABAPENTIN 300 MG ORAL CAPSULE 1 po q hs for nerve pain GABAPENTIN 300 MG ORAL CAPSULE 204836 GABAPENTIN Inactive TRAMADOL HCL 50 MG ORAL TABLET 1 po tid with ES Tylenol TRAMADOL HCL 50 MG ORAL TABLET 088431 TRAMADOL HCL Inactive PROAIR HFA 108 (90 BASE) MCG/ACT INHALATION AEROSOL SOLUTION 1-2 puffs four times a day as needed PROAIR HFA 108 (90 BASE) MCG/ACT INHALATION AEROSOL SOLUTION ALBUTEROL SULFATE Inactive PREDNISONE 20 MG ORAL TABLET two tabs by mouth today, then one tab by mouth days two and three PREDNISONE 20 MG ORAL TABLET 464870 PREDNISONE Inactive TESSALON PERLES 100 MG ORAL CAPSULE 1-2 tablet by mouth 3 times daily 04/16 TESSALON PERLES 100 MG ORAL CAPSULE 737356 BENZONATATE Inactive PREDNISONE 10 MG ORAL TABLET 1 tablet by mouth daily PREDNISONE 10 MG ORAL TABLET 617287 PREDNISONE Inactive AZITHROMYCIN 250 MG ORAL TABLET 2 po qd x 1 day, then 1 po qd x 4 days 10/16 AZITHROMYCIN 250 MG ORAL TABLET 001292 AZITHROMYCIN Inactive AZITHROMYCIN 250 MG ORAL TABLET 2 po qd x 1 day, then 1 po qd x 4 days 10/21 AZITHROMYCIN 250 MG ORAL TABLET 956967 AZITHROMYCIN Inactive NYSTATIN-TRIAMCINOLONE 043731-3.1 UNIT/GM-% EXTERNAL CREAM Apply to area BID NYSTATIN-TRIAMCINOLONE 249014-6.1 UNIT/GM-% EXTERNAL CREAM 5319964 NYSTATIN-TRIAMCINOLONE Inactive AZITHROMYCIN 250 MG ORAL TABLET 2 po qd x 1 day, then 1 po qd x 4 days 05/07 AZITHROMYCIN 250 MG ORAL TABLET 925583 AZITHROMYCIN Inactive AZITHROMYCIN 250 MG ORAL TABLET 2 po qd x 1 day, then 1 po qd x 4 days 10/13 AZITHROMYCIN 250 MG ORAL TABLET 934548 AZITHROMYCIN Inactive AZITHROMYCIN 250 MG ORAL TABLET 2 po qd x 1 day, then 1 po qd x 4 days 07/12 AZITHROMYCIN 250 MG ORAL TABLET 259745 AZITHROMYCIN Inactive PREDNISONE 20 MG ORAL TABLET 2 tabs daily for 3 days, 1 tab daily for 3 days, 1/2 tab daily for 2 days PREDNISONE 20 MG ORAL TABLET 907614 PREDNISONE Inactive DOXYCYCLINE HYCLATE 100 MG ORAL CAPSULE 1 cap by mouth BID x10 days DOXYCYCLINE HYCLATE 100 MG ORAL CAPSULE 2643450 DOXYCYCLINE HYCLATE Inactive ZITHROMAX 250 MG ORAL TABLET Take two (2 ) tablets day one, then one (1) tablet a day for four (4) more days ZITHROMAX 250 MG ORAL TABLET 958784 AZITHROMYCIN Inactive Advance Directives Directive Description Start [...] % 11.0-15.0 platelet count 172 THOUSAND/UL 10*3/mm3 164-048 2398/04/12 mean platelet volume 8.6 fL 7.5-12.5 Lab Report: Prothrombin Time Hemochron - Coagulation prothrombin time (patient) 33.0 SECS s 18.9-24.9 Encounters Code Encounter Date Provider Facility CPT-36740 Level 3 Est. Patient 15:59:25 SATELLITE DISH TECHNICIAN Piotr Daley [facility] CPT-40355 Level 3 Est. Patient 12:33:59 SATELLITE DISH TECHNICIAN Piotr Daley [facility] CPT-24537 Level 3 Est. Patient 15:56:17 SATELLITE DISH TECHNICIAN Piotr Daley [facility] CPT-57420 Level 3 Est. Patient 10:34:54 SATELLITE DISH TECHNICIAN Piotr Daley [facility] CPT-75820 Level 3 Est. Patient 17:10:19 MALACHI Harris APRN [facility] CPT-73203 Level 3 Est. Patient 10:48:17 SATELLITE DISH TECHNICIAN Matthew Rangel MD [facility] CPT-20922 Level 4 Est. Patient 17:15:07 SATELLITE DISH TECHNICIAN Piotr Daley [facility] CPT-00848 Level 3 Est. Patient 12:46:13 SATELLITE DISH TECHNICIAN Piotr Daley [facility] CPT-81897 Level 3 Est. Patient 15:14:31 SATELLITE DISH TECHNICIAN Piotr Katie Daley [facility] CPT-47649 Level 3 Est. Patient 09:20:13 SATELLITE DISH TECHNICIAN Piotr Daley [facility] CPT-59288 Level 3 Est. Patient 09:49:40 CDT Piotr Daley [facility] CPT-12979 Level 3 Est. Patient 16:28:11 CDT Piotr Daley [facility] CPT-11651 Level 3 Est. Patient 12:41:58 SATELLITE DISH TECHNICIAN Piotr Daley [facility] CPT-87556 Level 3 Est. Patient 09:21:24 CDT Piotr Daley [facility] CPT-58062 Level 3 Est. Patient 09:21:11 CDT Piotr Daley [facility] CPT-56667 Level 3 Est. Patient 11:16:29 SATELLITE DISH TECHNICIAN Piotr Daley [facility] CPT-26667 Level 3 Est. Patient 18:40:19 SATELLITE DISH TECHNICIAN Piotr Dlaey [facility] CPT-81417 Level 3 Est. Patient 19:30:50 CDT Piotr Daley [facility] CPT-22750 Level 3 Est. Patient 22:06:44 CDT Katrina Rinaldi MD PhD [facility]-03679 Level 3 Est. Patient 14:20:00 CDT Piotr Daley [facility] CPT-04026 Level 3 Est. Patient 14:15:22 SATELLITE DISH TECHNICIAN Piotr Daley [facility] CPT-18523 Level 3 Est. Patient 20:19:57 SATELLITE DISH TECHNICIAN Piotr Daley [facility] CPT-71499 Level 3 Est. Patient 16:44:32 CDT Piotr Daley [facility] CPT-26627 Level 3 Est. Patient 08:48:46 SATELLITE DISH TECHNICIAN Piotr Daley [facility] CPT-89921 Level 3 Est. Patient 21:01:21 CDT Piotr Daley [facility] Procedures Code Procedure Name Date Entry Date Standard Description CPT-84732 Sacroiliac jt < 3V - XRAY USE ONLY 16:45:19 SATELLITE DISH TECHNICIAN 05/09 CPT-92990 LS spine comp w obliques - XRAY USE ONLY 14:52:26 SATELLITE DISH TECHNICIAN CPT-08442 Chest, 2 views 12:55:58 SATELLITE DISH TECHNICIAN CPT-G0439 Subsequent Annual Wellness Exam 10:34:52 SATELLITE DISH TECHNICIAN CPT-04367 BMP - LAB USE ONLY 17:19:11 SATELLITE DISH TECHNICIAN CPT-90680 PT/INR - LAB USE ONLY 17:19:10 SATELLITE DISH TECHNICIAN CPT-72672 Venipuncture Draw Fee 17:19:10 SATELLITE DISH TECHNICIAN CPT-80478 PT/INR - LAB USE ONLY 08:12:25 SATELLITE DISH TECHNICIAN CPT-19371 Venipuncture Draw Fee 08:12:24 SATELLITE DISH TECHNICIAN CPT-62893 Venipuncture Draw Fee 11:31:07 SATELLITE DISH TECHNICIAN CPT-15357 TPSA - LAB USE ONLY 11:31:07 SATELLITE DISH TECHNICIAN CPT-20377 PT/INR - LAB USE ONLY 11:31:07 SATELLITE DISH TECHNICIAN CPT-G0439 Subsequent Annual Wellness Exam 09:59:29 SATELLITE DISH TECHNICIAN CPT-33606 Creatinine - LAB USE ONLY 14:37:55 SATELLITE DISH TECHNICIAN CPT-56949 PT/INR - LAB USE ONLY 14:37:55 SATELLITE DISH TECHNICIAN CPT-40864 Venipuncture Draw Fee 14:37:55 SATELLITE DISH TECHNICIAN CPT-30696 LS spine comp w obliques - XRAY USE ONLY 12:59:25 SATELLITE DISH TECHNICIAN CPT-32941 PT/INR - LAB USE ONLY 13:49:20 CDT CPT-83171 Venipuncture Draw Fee 13:49:19 CDT CPT-40990 PT/INR - LAB USE ONLY 15:48:49 CDT CPT-70164 Venipuncture Draw Fee 15:48:49 CDT CPT-05322 Venipuncture Draw Fee 11:31:59 CDT CPT-36039 PT/INR - LAB USE ONLY 11:31:59 CDT CPT-20044 Venipuncture Draw Fee 13:29:15 CDT CPT-65561 Thoracolumbar AP/Lat 15:19:19 SATELLITE DISH TECHNICIAN CPT-G0438 Initial Annual Wellness Exam 12:18:54 SATELLITE DISH TECHNICIAN CPT-10007 Knee 3V 09:57:38 CDT CPT-OV Office Visit 15:45:01 SATELLITE DISH TECHNICIAN CPT-58649 Abd compl w upright 17:10:25 CDT
--- OUTSIDE RECORDS SUMMARY | 2018-07-18 08:07 | XMS REPORT | Clinical Summary ---
Author Author Admin, YONG Organization [facility] Address Unknown Phone Unavailable Allergies, Adverse [...] neoplasm of prostate V10.46 Active Alina Meyers INTERIOR DECORATOR PAINTING Personal history of malignant neoplasm of prostate Coronary artery disease 414.00 Active Alina Meyers INTERIOR DECORATOR PAINTING Coronary atherosclerosis of unspecified type of vessel, red cliff or graft Back pain, thoracic region, left [...] po tid with ES Tylenol TRAMADOL HCL 24680406610 Active Piotr Daley DO Active WARFARIN SODIUM 5 MG TABS 1 tablet daily except for Saturday and Sat 1/ tablet. WARFARIN SODIUM 55792698678 Active Hilary Ma MA Active PREDNISONE 20 MG TAB 2 tablets today, then 1 tablet days 2 through 4 PREDNISONE 69482921313 No Longer Active Piotr Daley DO Active AZITHROMYCIN 250 MG TABS 2 po qd x 1 day, then 1 po qd x 4 days AZITHROMYCIN 71964006748 No Longer Active Piotr Daley DO Active IBUPROFEN 800 MG TABS 1 tab every 8 hours as needed IBUPROFEN 94496634530 No Longer Active Piotr Daley DO Active LOMOTIL 2.5-0.025 MG TAB 1 to 2 four times a day as needed for diarrhea 10/13 DIPHENOXYLATE-ATROPINE 87991761767 No Longer Active Piotr Daley DO Active WARFARIN SODIUM 4 MG TABS 1 tab every evening WARFARIN SODIUM 85008533074 No Longer Active Piotr Daley DO Active PREDNISONE 20 MG TAB 1 tablet twice daily for 2 days, then 1 tablet once daily for 2 days PREDNISONE 37331610484 No Longer Active Piotr Daley DO Active PROMETHAZINE HCL 25 MG TABS 1 four times a day as needed for nausea/vomiting PROMETHAZINE HCL 81359999877 No Longer Active Piotr Daley DO Active TUSSIONEX PENNKINETIC ER 10-8 MG/5ML LQCR 5ml po q12hr PRN Cough HYDROCOD POLST-CHLORPHEN POLST 32252522804 No Longer Active Piotr Daley DO Active AZITHROMYCIN 250 MG TABS 2 po qd x 1 day, then 1 po qd x 4 days AZITHROMYCIN 72798733929 No Longer Active Piotr Daley DO Active AZITHROMYCIN 250 MG TABS 2 po qd x 1 day, then 1 po qd x 4 days AZITHROMYCIN 94466483291 No Longer Active Piotr Daley DO Active LISINOPRIL-HYDROCHLOROTHIAZIDE 10-12.5 MG TABS 1 tab by mouth daily LISINOPRIL-HYDROCHLOROTHIAZIDE 33663598838 Active Hilary Ma MA Active LISINOPRIL 10 MG TABS 1/2-1 tab po every other day LISINOPRIL 60545030446 No Longer Active Piotr Daley DO Active VENTOLIN HFA 108 (90 BASE) MCG/ACT AERS 2 puffs four times a day PRN cough ALBUTEROL SULFATE 70615715196 No Longer Active Piotr Daley DO Active NYSTATIN-TRIAMCINOLONE 056775-4.1 UNIT/GM-% CREA Apply to area BID NYSTATIN-TRIAMCINOLONE 51282632651 No Longer Active Alena Chavira AUTOPSY ASSISTANT Active PHISOHEX 3 % LIQD Use Directed HEXACHLOROPHENE 01053600220 No Longer Active Sandra [place] Active AZITHROMYCIN 250 MG TABS 2 po qd x 1 day, then 1 po qd x 4 days AZITHROMYCIN 91961961285 No Longer Active Katrina Rinaldi MD PhD Active AZITHROMYCIN 250 MG TABS 2 po qd x 1 day, then 1 po qd x 4 days AZITHROMYCIN 07332106486 No Longer Active Piotr Daley DO Active AZITHROMYCIN 500 MG SOLR 1 po q day AZITHROMYCIN 99661263177 No Longer Active Piotr Daley DO Active NYSTATIN-TRIAMCINOLONE 233695-9.1 UNIT/GM-% CREA apply bid 08/19 NYSTATIN-TRIAMCINOLONE 09067191133 No Longer Active Piotr W Edi DO Active IBUPROFEN 800 MG TABS 1 po q 8 hours prn pain sparinly IBUPROFEN 41240589842 No Longer Active Piotr Daley DO Active VITAMIN D3 5000 UNIT CAPS 1 po daily CHOLECALCIFEROL 94505137791 Active Piotr Wilson Edi DO Active IBUPROFEN 800 MG TABS 1 po q 8 hours prn pain sparinly IBUPROFEN 800 MG TABS 094820 IBUPROFEN Inactive NYSTATIN-TRIAMCINOLONE 501169-6.1 UNIT/GM-% CREA apply bid 08/19 NYSTATIN-TRIAMCINOLONE 944401-9.1 UNIT/GM-% CREA 8493802 NYSTATIN- TRIAMCINOLONE Inactive AZITHROMYCIN 500 MG SOLR 1 po q day AZITHROMYCIN 500 MG SOLR 02728555799 AZITHROMYCIN Inactive VENTOLIN HFA 108 (90 BASE) MCG/ACT AERS 2 puffs four times a day PRN cough VENTOLIN HFA 108 (90 BASE) MCG/ACT AERS ALBUTEROL SULFATE Inactive LISINOPRIL 10 MG TABS 1/2-1 tab po every other day LISINOPRIL 10 MG TABS 113018 LISINOPRIL Inactive TUSSIONEX PENNKINETIC ER 10-8 MG/5ML LQCR 5ml po q12hr PRN Cough TUSSIONEX PENNKINETIC ER 10-8 MG/5ML LQCR HYDROCOD POLST- CHLORPHEN POLST Inactive PROMETHAZINE HCL 25 MG TABS 1 four times a day as needed for nausea/vomiting PROMETHAZINE HCL 25 MG TABS 458691 PROMETHAZINE HCL Inactive PREDNISONE 20 MG TAB 1 tablet twice daily for 2 days, then 1 tablet once daily for 2 days PREDNISONE 20 MG TAB 897690 PREDNISONE Inactive WARFARIN SODIUM 4 MG TABS 1 tab every evening WARFARIN SODIUM 4 MG TABS 387666 WARFARIN SODIUM Inactive LOMOTIL 2.5-0.025 MG TAB 1 to 2 four times a day as needed for diarrhea 10/13 LOMOTIL 2.5-0.025 MG TAB 6270165 DIPHENOXYLATE-ATROPINE Inactive IBUPROFEN 800 MG TABS 1 tab every 8 hours as needed IBUPROFEN 800 MG TABS 676878 IBUPROFEN Inactive PREDNISONE 20 MG TAB 2 tablets today, then 1 tablet days 2 through 4 PREDNISONE 20 MG TAB 886126 PREDNISONE Inactive AZITHROMYCIN 250 MG TABS 2 po qd x 1 day, then 1 po qd x 4 days AZITHROMYCIN 250 MG TABS 7351320 AZITHROMYCIN Inactive AZITHROMYCIN 250 MG TABS 2 po qd x 1 day, then 1 po qd x 4 days AZITHROMYCIN 250 MG TABS 0049473 AZITHROMYCIN Inactive NYSTATIN-TRIAMCINOLONE 345933-0.1 UNIT/GM-% CREA Apply to area BID NYSTATIN-TRIAMCINOLONE 994082-5.1 UNIT/GM-% CREA 2624702 NYSTATIN-TRIAMCINOLONE Inactive AZITHROMYCIN 250 MG TABS 2 po qd x 1 day, then 1 po qd x 4 days AZITHROMYCIN 250 MG TABS 8350054 AZITHROMYCIN Inactive AZITHROMYCIN 250 MG TABS 2 po qd x 1 day, then 1 po qd x 4 days AZITHROMYCIN 250 MG TABS 1884107 AZITHROMYCIN Inactive AZITHROMYCIN 250 MG TABS 2 po qd x 1 day, then 1 po qd x 4 days AZITHROMYCIN 250 MG TABS 5520397 AZITHROMYCIN Inactive Advance Directives Directive Description Start [...] mg/g mg/g{creat} 0-29 sodium, serum 140 mmol/L 402-149 2463/07/17 potassium, serum 4.2 mmol/L 3.5-5.2 chloride, serum [...] ratio (INR) 2.4 1.0-3.5 prothrombin time (patient) 16.5 SECS s [...] ratio (INR) 2.1 1.0-3.5 prothrombin time (patient) 21.0 SECS s [...] 5.0-8.5 Encounters Code Encounter Date Provider Facility CPT-72977 Level 3 Est. Patient 15:14:31 DISTRICT FIRE CHIEF Piotr Daley [facility] CPT-68164 Level 3 Est. Patient 09:20:13 DISTRICT FIRE CHIEF Piotr [facility] CPT-50693 Level 3 Est. Patient 09:49:40 CDT Piotr Wilson [facility] CPT-72390 Level 3 Est. Patient 16:28:11 CDT Piotr [facility] CPT-33217 Level 3 Est. Patient 12:41:58 DISTRICT FIRE CHIEF Piotr Daley [facility] CPT-21119 Level 3 Est. Patient 09:21:24 CDT Piotr Wilson [facility] CPT-63187 Level 3 Est. Patient 09:21:11 CDT Piotr Wilson [facility] CPT-49309 Level 3 Est. Patient 11:16:29 DISTRICT FIRE CHIEF Piotr Wilson [facility] CPT-17242 Level 3 Est. Patient 18:40:19 DISTRICT FIRE CHIEF Piotr Daley [facility] CPT-02750 Level 3 Est. Patient 19:30:50 CDT Piotr Daley [facility] CPT-68276 Level 3 Est. Patient 22:06:44 CDT Katrina Rinaldi MD [facility] CPT-73281 Level 3 Est. Patient 14:20:00 CDT Piotr Daley [facility] CPT-15634 Level 3 Est. Patient 14:15:22 DISTRICT FIRE CHIEF Piotr Daley [facility] CPT-36487 Level 3 Est. Patient 20:19:57 DISTRICT FIRE CHIEF Piotr Daley [facility] CPT-30953 Level 3 Est. Patient 16:44:32 CDT Piotr Daley [facility] CPT-69746 Level 3 Est. Patient 08:48:46 DISTRICT FIRE CHIEF Piotr Daley [facility] CPT-06944 Level 3 Est. Patient 21:01:21 CDT Piotr [facility] Procedures Code Procedure Name Date Entry Date Standard Description CPT-43176 Thoracolumbar AP/Lat 15:19:19 DISTRICT FIRE CHIEF CPT-G0438 Initial Annual Wellness Exam 12:18:54 DISTRICT FIRE CHIEF CPT-56210 Knee 3V 09:57:38 CDT CPT-OV Office Visit 15:45:01 DISTRICT FIRE CHIEF CPT-37416 Abd compl w upright 17:10:25 CDT
--- OUTSIDE RECORDS SUMMARY | 2018-07-18 08:08 | XMS REPORT | Clinical Summary ---
Author Author Admin, E Organization [facility] Address Unknown Phone Unavailable Allergies, Adverse Reactions, [...] neoplasm of prostate V10.46 Active Alina Meyers SENIOR TERADATA DEVELOPER Personal history of malignant neoplasm of prostate Coronary artery disease 414.00 Active Alina Luigi SENIOR TERADATA DEVELOPER Coronary atherosclerosis of unspecified type of vessel, minto or graft Back pain, thoracic region, left [...] MG TABS 1 tablet daily WARFARIN SODIUM 43505052445 Active Emelyn Goode RPT,RMA Active TRAMADOL HCL 50 MG TABS 1 po tid with ES Tylenol TRAMADOL HCL 18501635176 Active Piotr Daley DO Active PREDNISONE 20 MG TAB 2 tablets today, then 1 tablet days 2 through 4 PREDNISONE 54780280210 No Longer Active Piotr Daley DO Active AZITHROMYCIN 250 MG TABS 2 po qd x 1 day, then 1 po qd x 4 days AZITHROMYCIN 99084974372 No Longer Active Piotr Daley DO Active IBUPROFEN 800 MG TABS 1 tab every 8 hours as needed IBUPROFEN 72116531349 No Longer Active Piotr Daley DO Active LOMOTIL 2.5-0.025 MG TAB 1 to 2 four times a day as needed for diarrhea 10/13 DIPHENOXYLATE-ATROPINE 23623108702 No Longer Active Piotr Daley DO Active WARFARIN SODIUM 4 MG TABS 1 tab every evening WARFARIN SODIUM 77196217423 No Longer Active Piotr Daley DO Active PREDNISONE 20 MG TAB 1 tablet twice daily for 2 days, then 1 tablet once daily for 2 days PREDNISONE 55039778040 No Longer Active Piotr Daley DO Active PROMETHAZINE HCL 25 MG TABS 1 four times a day as needed for nausea/vomiting PROMETHAZINE HCL 61048958431 No Longer Active Piotr Daley DO Active TUSSIONEX PENNKINETIC ER 10-8 MG/5ML LQCR 5ml po q12hr PRN Cough HYDROCOD POLST-CHLORPHEN POLST 49816220517 No Longer Active Piotr W Edi DO Active AZITHROMYCIN 250 MG TABS 2 po qd x 1 day, then 1 po qd x 4 days AZITHROMYCIN 10871934822 No Longer Active Piotr Daley DO Active AZITHROMYCIN 250 MG TABS 2 po qd x 1 day, then 1 po qd x 4 days AZITHROMYCIN 42844145131 No Longer Active Piotr Daley DO Active LISINOPRIL-HYDROCHLOROTHIAZIDE 10-12.5 MG TABS 1 tab by mouth daily LISINOPRIL-HYDROCHLOROTHIAZIDE 04753441718 Active Hilary Ma MA Active LISINOPRIL 10 MG TABS 1/2-1 tab po every other day LISINOPRIL 69541747910 No Longer Active Piotr Daley DO Active VENTOLIN HFA 108 (90 BASE) MCG/ACT AERS 2 puffs four times a day PRN cough ALBUTEROL SULFATE 31933136494 No Longer Active Piotr Daley DO Active NYSTATIN-TRIAMCINOLONE 676944-2.1 UNIT/GM-% CREA Apply to area BID NYSTATIN-TRIAMCINOLONE 52350318591 No Longer Active Alena Oswaldum REGISTERED NURSE CARDIOVASCULAR ICU Active PHISOHEX 3 % LIQD Use Directed HEXACHLOROPHENE 31732812285 No Longer Active Sandra Hunter Active AZITHROMYCIN 250 MG TABS 2 po qd x 1 day, then 1 po qd x 4 days AZITHROMYCIN 12109770493 No Longer Active Katrina Rinaldi MD PhD Active AZITHROMYCIN 250 MG TABS 2 po qd x 1 day, then 1 po qd x 4 days AZITHROMYCIN 32282171614 No Longer Active Piotr Daley DO Active AZITHROMYCIN 500 MG SOLR 1 po q day AZITHROMYCIN 60859479059 No Longer Active Piotr Daley DO Active NYSTATIN-TRIAMCINOLONE 201842-0.1 UNIT/GM-% CREA apply bid 08/19 NYSTATIN-TRIAMCINOLONE 57221268321 No Longer Active Piotr Daley DO Active IBUPROFEN 800 MG TABS 1 po q 8 hours prn pain sparinly IBUPROFEN 19112253716 No Longer Active Piotr Daley DO Active VITAMIN D3 5000 UNIT CAPS 1 po daily CHOLECALCIFEROL 45957703152 Active Piotr Daley DO Active IBUPROFEN 800 MG TABS 1 po q 8 hours prn pain sparinly IBUPROFEN 800 MG TABS 772190 IBUPROFEN Inactive NYSTATIN-TRIAMCINOLONE 869391-5.1 UNIT/GM-% CREA apply bid 08/19 NYSTATIN-TRIAMCINOLONE 956182-4.1 UNIT/GM-% CREA 7021392 NYSTATIN- TRIAMCINOLONE Inactive AZITHROMYCIN 500 MG SOLR 1 po q day AZITHROMYCIN 500 MG SOLR 97700617620 AZITHROMYCIN Inactive VENTOLIN HFA 108 (90 BASE) MCG/ACT AERS 2 puffs four times a day PRN cough VENTOLIN HFA 108 (90 BASE) MCG/ACT AERS ALBUTEROL SULFATE Inactive LISINOPRIL 10 MG TABS 1/2-1 tab po every other day LISINOPRIL 10 MG TABS 024898 LISINOPRIL Inactive TUSSIONEX PENNKINETIC ER 10-8 MG/5ML LQCR 5ml po q12hr PRN Cough TUSSIONEX PENNKINETIC ER 10-8 MG/5ML LQCR HYDROCOD POLST- CHLORPHEN POLST Inactive PROMETHAZINE HCL 25 MG TABS 1 four times a day as needed for nausea/vomiting PROMETHAZINE HCL 25 MG TABS 600940 PROMETHAZINE HCL Inactive PREDNISONE 20 MG TAB 1 tablet twice daily for 2 days, then 1 tablet once daily for 2 days PREDNISONE 20 MG TAB 257549 PREDNISONE Inactive WARFARIN SODIUM 4 MG TABS 1 tab every evening WARFARIN SODIUM 4 MG TABS 683685 WARFARIN SODIUM Inactive LOMOTIL 2.5-0.025 MG TAB 1 to 2 four times a day as needed for diarrhea 10/13 LOMOTIL 2.5-0.025 MG TAB 2668522 DIPHENOXYLATE-ATROPINE Inactive IBUPROFEN 800 MG TABS 1 tab every 8 hours as needed IBUPROFEN 800 MG TABS 078239 IBUPROFEN Inactive PREDNISONE 20 MG TAB 2 tablets today, then 1 tablet days 2 through 4 PREDNISONE 20 MG TAB 574830 PREDNISONE Inactive AZITHROMYCIN 250 MG TABS 2 po qd x 1 day, then 1 po qd x 4 days AZITHROMYCIN 250 MG TABS 8773152 AZITHROMYCIN Inactive AZITHROMYCIN 250 MG TABS 2 po qd x 1 day, then 1 po qd x 4 days AZITHROMYCIN 250 MG TABS 9093309 AZITHROMYCIN Inactive NYSTATIN-TRIAMCINOLONE 480966-1.1 UNIT/GM-% CREA Apply to area BID NYSTATIN-TRIAMCINOLONE 168768-6.1 UNIT/GM-% CREA 0474554 NYSTATIN-TRIAMCINOLONE Inactive AZITHROMYCIN 250 MG TABS 2 po qd x 1 day, then 1 po qd x 4 days AZITHROMYCIN 250 MG TABS 8948456 AZITHROMYCIN Inactive AZITHROMYCIN 250 MG TABS 2 po qd x 1 day, then 1 po qd x 4 days AZITHROMYCIN 250 MG TABS 4809928 AZITHROMYCIN Inactive AZITHROMYCIN 250 MG TABS 2 po qd x 1 day, then 1 po qd x 4 days AZITHROMYCIN 250 MG TABS 8962008 AZITHROMYCIN Inactive Advance Directives Directive Description Start [...] Panel - Chemistry sodium, serum 141 mmol/L 188-060 9429/06/28 carbon dioxide, venous blood 31.0 mmol/L 21.0-32.0 [...] ratio (INR) 2.5 1.0-3.5 prothrombin time (patient) 16.6 SECS s [...] 5.0-8.5 Encounters Code Encounter Date Provider Facility CPT-70511 Level 3 Est. Patient 15:14:31 BUSINESS RECORDS MANAGER Piotr Daley DO [facility] CPT-45623 Level 3 Est. Patient 09:20:13 BUSINESS RECORDS MANAGER Piotr Daley [facility] CPT-14624 Level 3 Est. Patient 09:49:40 CDT Piotr Daley [facility] CPT-47310 Level 3 Est. Patient 16:28:11 CDT Piotr Daley [facility] CPT-29310 Level 3 Est. Patient 12:41:58 BUSINESS RECORDS MANAGER Piotr Daley [facility] CPT-43724 Level 3 Est. Patient 09:21:24 CDT Piotr Daley [facility] CPT-92290 Level 3 Est. Patient 09:21:11 CDT Piotr Daley [facility] CPT-64951 Level 3 Est. Patient 11:16:29 BUSINESS RECORDS MANAGER Piotr Daley [facility] CPT-40257 Level 3 Est. Patient 18:40:19 BUSINESS RECORDS MANAGER Piotr Daley [facility] CPT-07663 Level 3 Est. Patient 19:30:50 CDT Piotr Daley [facility] CPT-54862 Level 3 Est. Patient 22:06:44 CDT Katrina Rinaldi MD [facility] CPT-08752 Level 3 Est. Patient 14:20:00 CDT Piotr Daley [facility] CPT-49260 Level 3 Est. Patient 14:15:22 BUSINESS RECORDS MANAGER Piotr Daley [facility] CPT-20412 Level 3 Est. Patient 20:19:57 BUSINESS RECORDS MANAGER Piotr Daley [facility] CPT-87423 Level 3 Est. Patient 16:44:32 CDT Piotr Daley [facility] CPT-93620 Level 3 Est. Patient 08:48:46 BUSINESS RECORDS MANAGER Piotr Daley [facility] CPT-92113 Level 3 Est. Patient 21:01:21 CDT Piotr Daley [facility] Procedures Code Procedure Name Date Entry Date Standard Description CPT-33589 Venipuncture Draw Fee 11:31:59 CDT CPT-94676 PT/INR - LAB USE ONLY 11:31:59 CDT CPT-22446 Venipuncture Draw Fee 13:29:15 CDT CPT-40634 Thoracolumbar AP/Lat 15:19:19 BUSINESS RECORDS MANAGER CPT-G0438 Initial Annual Wellness Exam 12:18:54 BUSINESS RECORDS MANAGER CPT-74991 Knee 3V 09:57:38 CDT CPT-OV Office Visit 15:45:01 BUSINESS RECORDS MANAGER CPT-09459 Abd compl w upright 17:10:25 CDT
--- OUTSIDE RECORDS SUMMARY | 2018-07-18 08:09 | XMS REPORT | Clinical Summary ---
Author Author Admin, [employer] Organization [employer] Address Unknown Phone Unavailable Allergies, Adverse Reactions, Alerts Allergy Name Reaction Description Start Date Severity Status Provider PENICILLINS Mild No Longer Active Piotr Wilson Edi DO PENICILLINS Critical No Longer Active Piotr [...] Leg pain, right 729.5 Active Piotr Katie Eid DO Pain in limb Right leg pain [...] neoplasm of prostate V10.46 Active Alina Meyers [place] Personal history of malignant neoplasm of prostate Coronary artery disease 414.00 Active Alina Meyers APRN Coronary atherosclerosis of unspecified type of vessel, [place] or graft Back pain, thoracic region, left [...] po q hs for nerve pain GABAPENTIN 72329421025 Active Piotr Daley DO Active WARFARIN SODIUM 5 MG TABS 1 tablet daily WARFARIN SODIUM 78456901841 Active Simi Meyers Active TRAMADOL HCL 50 MG TABS 1 po tid with ES Tylenol TRAMADOL HCL 31045159224 Active Piotr Daley DO Active PREDNISONE 20 MG TAB 2 tablets today, then 1 tablet days 2 through 4 PREDNISONE 30032670865 No Longer Active Piotr Daley DO Active AZITHROMYCIN 250 MG TABS 2 po qd x 1 day, then 1 po qd x 4 days AZITHROMYCIN 29071959186 No Longer Active Piotr Daley DO Active IBUPROFEN 800 MG TABS 1 tab every 8 hours as needed IBUPROFEN 41888698959 No Longer Active Piotr Daley DO Active LOMOTIL 2.5-0.025 MG TAB 1 to 2 four times a day as needed for diarrhea 10/13 DIPHENOXYLATE-ATROPINE 25824048656 No Longer Active Piotr Daley DO Active WARFARIN SODIUM 4 MG TABS 1 tab every evening WARFARIN SODIUM 70580381305 No Longer Active Piotr Daley DO Active PREDNISONE 20 MG TAB 1 tablet twice daily for 2 days, then 1 tablet once daily for 2 days PREDNISONE 88526843530 No Longer Active Piotr Daley DO Active PROMETHAZINE HCL 25 MG TABS 1 four times a day as needed for nausea/vomiting PROMETHAZINE HCL 28742817389 No Longer Active Piotr Daley DO Active TUSSIONEX PENNKINETIC ER 10-8 MG/5ML LQCR 5ml po q12hr PRN Cough HYDROCOD POLST-CHLORPHEN POLST 34718626353 No Longer Active Piotr Daley DO Active AZITHROMYCIN 250 MG TABS 2 po qd x 1 day, then 1 po qd x 4 days AZITHROMYCIN 74756498446 No Longer Active Piotr Daley DO Active AZITHROMYCIN 250 MG TABS 2 po qd x 1 day, then 1 po qd x 4 days AZITHROMYCIN 29497621564 No Longer Active Piotr Daley DO Active LISINOPRIL-HYDROCHLOROTHIAZIDE 10-12.5 MG TABS 1 tab by mouth daily LISINOPRIL-HYDROCHLOROTHIAZIDE 89834994432 Active Simi Meyers Active LISINOPRIL 10 MG TABS 1/2-1 tab po every other day LISINOPRIL 99374400346 No Longer Active Piotr Daley DO Active VENTOLIN HFA 108 (90 BASE) MCG/ACT AERS 2 puffs four times a day PRN cough ALBUTEROL SULFATE 09135298881 No Longer Active Piotr Daley DO Active NYSTATIN-TRIAMCINOLONE 586593-3.1 UNIT/GM-% CREA Apply to area BID NYSTATIN-TRIAMCINOLONE 49317827615 No Longer Active Alena Chavira GUITAR PLAYER Active PHISOHEX 3 % LIQD Use Directed HEXACHLOROPHENE 53750316220 No Longer Active Sandra [place] Active AZITHROMYCIN 250 MG TABS 2 po qd x 1 day, then 1 po qd x 4 days AZITHROMYCIN 57844320330 No Longer Active Katrina Rinaldi MD PhD Active AZITHROMYCIN 250 MG TABS 2 po qd x 1 day, then 1 po qd x 4 days AZITHROMYCIN 83819312683 No Longer Active Piotr Daley DO Active AZITHROMYCIN 500 MG SOLR 1 po q day AZITHROMYCIN 86481926462 No Longer Active Piotr Daley DO Active NYSTATIN-TRIAMCINOLONE 559219-3.1 UNIT/GM-% CREA apply bid 08/19 NYSTATIN-TRIAMCINOLONE 58763983164 No Longer Active Piotr Daley DO Active IBUPROFEN 800 MG TABS 1 po q 8 hours prn pain sparinly IBUPROFEN 42826318498 No Longer Active Piotr Daley DO Active VITAMIN D3 5000 UNIT CAPS 1 po daily CHOLECALCIFEROL 14463683480 Active Piort Daley DO Active IBUPROFEN 800 MG TABS 1 po q 8 hours prn pain sparinly IBUPROFEN 800 MG TABS 478610 IBUPROFEN Inactive NYSTATIN-TRIAMCINOLONE 176224-2.1 UNIT/GM-% CREA apply bid 08/19 NYSTATIN-TRIAMCINOLONE 195719-5.1 UNIT/GM-% CREA 8410696 NYSTATIN- TRIAMCINOLONE Inactive AZITHROMYCIN 500 MG SOLR 1 po q day AZITHROMYCIN 500 MG SOLR 72120445303 AZITHROMYCIN Inactive VENTOLIN HFA 108 (90 BASE) MCG/ACT AERS 2 puffs four times a day PRN cough VENTOLIN HFA 108 (90 BASE) MCG/ACT AERS ALBUTEROL SULFATE Inactive LISINOPRIL 10 MG TABS 1/2-1 tab po every other day LISINOPRIL 10 MG TABS 401087 LISINOPRIL Inactive TUSSIONEX PENNKINETIC ER 10-8 MG/5ML LQCR 5ml po q12hr PRN Cough TUSSIONEX PENNKINETIC ER 10-8 MG/5ML LQCR HYDROCOD POLST- CHLORPHEN POLST Inactive PROMETHAZINE HCL 25 MG TABS 1 four times a day as needed for nausea/vomiting PROMETHAZINE HCL 25 MG TABS 531686 PROMETHAZINE HCL Inactive PREDNISONE 20 MG TAB 1 tablet twice daily for 2 days, then 1 tablet once daily for 2 days PREDNISONE 20 MG TAB 838129 PREDNISONE Inactive WARFARIN SODIUM 4 MG TABS 1 tab every evening WARFARIN SODIUM 4 MG TABS 766597 WARFARIN SODIUM Inactive LOMOTIL 2.5-0.025 MG TAB 1 to 2 four times a day as needed for diarrhea 10/13 LOMOTIL 2.5-0.025 MG TAB 4955998 DIPHENOXYLATE-ATROPINE Inactive IBUPROFEN 800 MG TABS 1 tab every 8 hours as needed IBUPROFEN 800 MG TABS 946542 IBUPROFEN Inactive PREDNISONE 20 MG TAB 2 tablets today, then 1 tablet days 2 through 4 PREDNISONE 20 MG TAB 011582 PREDNISONE Inactive AZITHROMYCIN 250 MG TABS 2 po qd x 1 day, then 1 po qd x 4 days AZITHROMYCIN 250 MG TABS 5744619 AZITHROMYCIN Inactive AZITHROMYCIN 250 MG TABS 2 po qd x 1 day, then 1 po qd x 4 days AZITHROMYCIN 250 MG TABS 8976176 AZITHROMYCIN Inactive NYSTATIN-TRIAMCINOLONE 564413-0.1 UNIT/GM-% CREA Apply to area BID NYSTATIN-TRIAMCINOLONE 688238-5.1 UNIT/GM-% CREA 2288184 NYSTATIN-TRIAMCINOLONE Inactive AZITHROMYCIN 250 MG TABS 2 po qd x 1 day, then 1 po qd x 4 days AZITHROMYCIN 250 MG TABS 9016309 AZITHROMYCIN Inactive AZITHROMYCIN 250 MG TABS 2 po qd x 1 day, then 1 po qd x 4 days AZITHROMYCIN 250 MG TABS 9777702 AZITHROMYCIN Inactive AZITHROMYCIN 250 MG TABS 2 po qd x 1 day, then 1 po qd x 4 days AZITHROMYCIN 250 MG TABS 0700204 AZITHROMYCIN Inactive Advance Directives Directive Description Start [...] Panel - Chemistry sodium, serum 141 mmol/L 260-378 4460/06/28 carbon dioxide, venous blood 31.0 mmol/L 21.0-32.0 [...] ratio (INR) 3.3 1.0-3.5 prothrombin time (patient) 18.9 SECS s 11.1-13.4 international normalized ratio (INR) 2.4 1.0-3.5 prothrombin time (patient) 23.1 SECS s [...] 1.0-3.5 Encounters Code Encounter Date Provider Facility CPT-02959 Level 4 Est. Patient 17:15:07 CLOCK MECHANIC Piotr Daley DO [facility] CPT-71677 Level 3 Est. Patient 12:46:13 CLOCK MECHANIC Piotr Daley [facility] CPT-24080 Level 3 Est. Patient 15:14:31 CLOCK MECHANIC Piotr Daley DO [facility] CPT-19363 Level 3 Est. Patient 09:20:13 CLOCK MECHANIC Piotr Daley [facility] CPT-17271 Level 3 Est. Patient 09:49:40 CDT Piotr Daley [facility] CPT-71552 Level 3 Est. Patient 16:28:11 CDT Piotr Daley [facility] CPT-40536 Level 3 Est. Patient 12:41:58 CLOCK MECHANIC Piotr Daley [facility] CPT-30211 Level 3 Est. Patient 09:21:24 CDT Piotr Daley [facility] CPT-92373 Level 3 Est. Patient 09:21:11 CDT Piotr Daley [facility] CPT-66470 Level 3 Est. Patient 11:16:29 CLOCK MECHANIC Piotr Daley [facility] CPT-70433 Level 3 Est. Patient 18:40:19 CLOCK MECHANIC Piotr Daley [facility] CPT-61664 Level 3 Est. Patient 19:30:50 CDT Piotr Daley [facility] CPT-96945 Level 3 Est. Patient 22:06:44 CDT Katrina Rinaldi MD [facility] CPT-78716 Level 3 Est. Patient 14:20:00 CDT Piotr Daley [facility] CPT-40182 Level 3 Est. Patient 14:15:22 CLOCK MECHANIC Piotr Daley [facility] CPT-72991 Level 3 Est. Patient 20:19:57 CLOCK MECHANIC Piotr Wilson Edi [facility] CPT-51783 Level 3 Est. Patient 16:44:32 CDT Piotr Katie Edi [facility] CPT-01022 Level 3 Est. Patient 08:48:46 CLOCK MECHANIC Piotr Daley [facility] CPT-32276 Level 3 Est. Patient 21:01:21 CDT Piotr Daley [facility] Procedures Code Procedure Name Date Entry Date Standard Description CPT-45512 PT/INR - LAB USE ONLY 08:12:25 CLOCK MECHANIC CPT-22466 Venipuncture Draw Fee 08:12:24 CLOCK MECHANIC CPT-83705 Venipuncture Draw Fee 11:31:07 CLOCK MECHANIC CPT-12110 TPSA - LAB USE ONLY 11:31:07 CLOCK MECHANIC CPT-32515 PT/INR - LAB USE ONLY 11:31:[address] [facility] CPT-G0439 Subsequent Annual Wellness Exam 09:59:29 CLOCK MECHANIC CPT-92315 Creatinine - LAB USE ONLY 14:37:55 CLOCK MECHANIC CPT-19004 PT/INR - LAB USE ONLY 14:37:[address] [facility] CPT-76754 Venipuncture Draw Fee 14:37:[address] [facility] CPT-36279 LS spine comp w obliques - XRAY USE ONLY 12:59:[address] [facility] CPT-18892 PT/INR - LAB USE ONLY 13:49:20 CDT CPT-65245 Venipuncture Draw Fee 13:49:19 CDT CPT-56890 PT/INR - LAB USE ONLY 15:48:49 CDT CPT-28468 Venipuncture Draw Fee 15:48:49 CDT CPT-41785 Venipuncture Draw Fee 11:31:59 CDT CPT-72883 PT/INR - LAB USE ONLY 11:31:59 CDT CPT-53083 Venipuncture Draw Fee 13:29:15 CDT CPT-39883 Thoracolumbar AP/Lat 15:19:19 CLOCK MECHANIC CPT-G0438 Initial Annual Wellness Exam 12:18:54 CLOCK MECHANIC CPT-06322 Knee 3V 09:57:38 CDT CPT-OV Office Visit 15:45:01 CLOCK MECHANIC CPT-05708 Abd compl w upright 17:10:25 CDT
--- OUTSIDE RECORDS SUMMARY | 2018-07-18 08:10 | XMS REPORT | Clinical Summary ---
Author Author Admin, YONG Organization [facility] Address Unknown Phone Unavailable Allergies, [...] 1 tablet days 2 through 4 PREDNISONE 11441440189 Active Piotr Daley DO Active AZITHROMYCIN 250 MG TABS 2 po qd x 1 day, then 1 po qd x 4 days AZITHROMYCIN 01259075643 No Longer Active Piotr Daley DO Active IBUPROFEN 800 MG TABS 1 tab every 8 hours as needed IBUPROFEN 11329016118 No Longer Active Piotr Daley DO Active LOMOTIL 2.5-0.025 MG TAB 1 to 2 four times a day as needed for diarrhea 10/13 DIPHENOXYLATE-ATROPINE 59454856058 No Longer Active Piotr Daley DO Active WARFARIN SODIUM 5 MG TABS 1 tablet daily except for Saturday and Wed 1/2 tablet. WARFARIN SODIUM 37841681439 Active Piotr Daley DO Active WARFARIN SODIUM 4 MG TABS 1 tab every evening WARFARIN SODIUM 66331225472 No Longer Active Piotr Daley DO Active PREDNISONE 20 MG TAB 1 tablet twice daily for 2 days, then 1 tablet once daily for 2 days PREDNISONE 76848495092 No Longer Active Piotr Daley DO Active PROMETHAZINE HCL 25 MG TABS 1 four times a day as needed for nausea/vomiting PROMETHAZINE HCL 39099563291 No Longer Active Piotr Daley DO Active TUSSIONEX PENNKINETIC ER 10-8 MG/5ML LQCR 5ml po q12hr PRN Cough HYDROCOD POLST-CHLORPHEN POLST 74357439055 No Longer Active Piotr Daley DO Active AZITHROMYCIN 250 MG TABS 2 po qd x 1 day, then 1 po qd x 4 days AZITHROMYCIN 42524379380 No Longer Active Piotr Daley DO Active AZITHROMYCIN 250 MG TABS 2 po qd x 1 day, then 1 po qd x 4 days AZITHROMYCIN 22161401899 No Longer Active Piotr Daley DO Active LISINOPRIL-HYDROCHLOROTHIAZIDE 10-12.5 MG TABS 1 tab by mouth daily LISINOPRIL-HYDROCHLOROTHIAZIDE 01264352221 Active Piotr Daley DO Active LISINOPRIL 10 MG TABS 1/2-1 tab po every other day LISINOPRIL 09715886038 No Longer Active Piotr Daley DO Active VENTOLIN HFA 108 (90 BASE) MCG/ACT AERS 2 puffs four times a day PRN cough ALBUTEROL SULFATE 22152675623 No Longer Active Piotr Daley DO Active NYSTATIN-TRIAMCINOLONE 539886-3.1 UNIT/GM-% CREA Apply to area BID NYSTATIN-TRIAMCINOLONE 71706300953 No Longer Active Alena Chavira CERTIFIED OPTICIAN Active PHISOHEX 3 % LIQD Use Directed HEXACHLOROPHENE 13011598619 No Longer Active Sandra [place] Active AZITHROMYCIN 250 MG TABS 2 po qd x 1 day, then 1 po qd x 4 days AZITHROMYCIN 30741474028 No Longer Active Katrina Rinaldi MD PhD Active AZITHROMYCIN 250 MG TABS 2 po qd x 1 day, then 1 po qd x 4 days AZITHROMYCIN 93047192305 No Longer Active Piotr Daley DO Active AZITHROMYCIN 500 MG SOLR 1 po q day AZITHROMYCIN 30300171869 No Longer Active Piotr Daley DO Active NYSTATIN-TRIAMCINOLONE 294224-0.1 UNIT/GM-% CREA apply bid 08/19 NYSTATIN-TRIAMCINOLONE 61071934474 No Longer Active Piotr Daley DO Active IBUPROFEN 800 MG TABS 1 po q 8 hours prn pain sparinly IBUPROFEN 15908149252 No Longer Active Piotr Daley DO Active VITAMIN D3 5000 UNIT CAPS 1 po daily CHOLECALCIFEROL 47720034648 Active Piotr Daley DO Active IBUPROFEN 800 MG TABS 1 po q 8 hours prn pain sparinly IBUPROFEN 800 MG TABS 293450 IBUPROFEN Inactive NYSTATIN-TRIAMCINOLONE 350464-8.1 UNIT/GM-% CREA apply bid 08/19 NYSTATIN-TRIAMCINOLONE 432719-3.1 UNIT/GM-% CREA 9703631 NYSTATIN- TRIAMCINOLONE Inactive AZITHROMYCIN 500 MG SOLR 1 po q day AZITHROMYCIN 500 MG SOLR 264183 AZITHROMYCIN Inactive VENTOLIN HFA 108 (90 BASE) MCG/ACT AERS 2 puffs four times a day PRN cough VENTOLIN HFA 108 (90 BASE) MCG/ACT AERS ALBUTEROL SULFATE Inactive LISINOPRIL 10 MG TABS 1/2-1 tab po every other day LISINOPRIL 10 MG TABS 814095 LISINOPRIL Inactive TUSSIONEX PENNKINETIC ER 10-8 MG/5ML LQCR 5ml po q12hr PRN Cough TUSSIONEX PENNKINETIC ER 10-8 MG/5ML LQCR HYDROCOD POLST- CHLORPHEN POLST Inactive PROMETHAZINE HCL 25 MG TABS 1 four times a day as needed for nausea/vomiting PROMETHAZINE HCL 25 MG TABS 512823 PROMETHAZINE HCL Inactive PREDNISONE 20 MG TAB 1 tablet twice daily for 2 days, then 1 tablet once daily for 2 days PREDNISONE 20 MG TAB 219572 PREDNISONE Inactive WARFARIN SODIUM 4 MG TABS 1 tab every evening WARFARIN SODIUM 4 MG TABS 901418 WARFARIN SODIUM Inactive LOMOTIL 2.5-0.025 MG TAB 1 to 2 four times a day as needed for diarrhea 10/13 LOMOTIL 2.5-0.025 MG TAB 6571788 DIPHENOXYLATE-ATROPINE Inactive IBUPROFEN 800 MG TABS 1 tab every 8 hours as needed IBUPROFEN 800 MG TABS 254107 IBUPROFEN Inactive AZITHROMYCIN 250 MG TABS 2 po qd x 1 day, then 1 po qd x 4 days AZITHROMYCIN 250 MG TABS 9232414 AZITHROMYCIN Inactive AZITHROMYCIN 250 MG TABS 2 po qd x 1 day, then 1 po qd x 4 days AZITHROMYCIN 250 MG TABS 7921401 AZITHROMYCIN Inactive NYSTATIN-TRIAMCINOLONE 734875-2.1 UNIT/GM-% CREA Apply to area BID NYSTATIN-TRIAMCINOLONE 369673-3.1 UNIT/GM-% CREA 8621857 NYSTATIN-TRIAMCINOLONE Inactive AZITHROMYCIN 250 MG TABS 2 po qd x 1 day, then 1 po qd x 4 days AZITHROMYCIN 250 MG TABS 1663325 AZITHROMYCIN Inactive AZITHROMYCIN 250 MG TABS 2 po qd x 1 day, then 1 po qd x 4 days AZITHROMYCIN 250 MG TABS 7996936 AZITHROMYCIN Inactive AZITHROMYCIN 250 MG TABS 2 po qd x 1 day, then 1 po qd x 4 days AZITHROMYCIN 250 MG TABS 1592367 AZITHROMYCIN Inactive Vital Signs Date Name Value [...] 11.1-13.4 international normalized ratio (INR) 2.5 1.0-3.5 international normalized ratio (INR) 1.4 1.0-3.5 prothrombin time (patient) 14.5 SECS s 11.1-13.4 Lab Report: Prothrombin Time, Basic Metabolic Panel, CBC, Prostatic Spec ... - Chemistry sodium, serum 142 mmol/L 501-549 2684/12/01 potassium, serum 4.7 mmol/L 3.5-5.2 chloride, serum [...] 142-424 Encounters Code Encounter Date Provider Facility CPT-00472 Level 3 Est. Patient 16:28:11 CDT Piotr Daley [facility] CPT-41275 Level 3 Est. Patient 12:41:58 [employer] Piotr Daley [facility] CPT-33387 Level 3 Est. Patient 09:21:24 CDT Piotr Daley [facility] CPT-97992 Level 3 Est. Patient 09:21:11 CDT Piotr [facility] CPT-62471 Level 3 Est. Patient 11:16:29 [employer] Piotr Daley [facility] CPT-44900 Level 3 Est. Patient 18:40:19 [employer] Piotr Daley [facility] CPT-93737 Level 3 Est. Patient 19:30:50 CDT Piotr Daley [facility] CPT-64688 Level 3 Est. Patient 22:06:44 CDT Katrina Rinaldi MD PhD [facility] CPT-47962 Level 3 Est. Patient 14:20:00 CDT Piotr Daley [facility] CPT-24669 Level 3 Est. Patient 14:15:22 [employer] Piotr Daley [facility] CPT-27763 Level 3 Est. Patient 20:19:57 [employer] Piotr Daley [facility] CPT-60206 Level 3 Est. Patient 16:44:32 CDT Piotr Daley [facility] CPT-52010 Level 3 Est. Patient 08:48:46 [employer]A B[employer] CUTTER Piotr Wilson [facility] CPT-46775 Level 3 Est. Patient 21:01:21 CDT Piotr Daley [facility] Procedures Code Procedure Name Date Entry Date Standard Description CPT-OV Office Visit 15:45:01 CASCARA BARK CUTTER CPT-96008 Abd compl w upright 17:10:25 CDT
--- OUTSIDE RECORDS SUMMARY | 2018-07-18 08:10 | XMS REPORT | Clinical Summary ---
Author Author Admin, [employer] Address Unknown Phone Unavailable Allergies, Adverse Reactions, [...] health care facility BRONCHITIS-ACUTE 466.0 Inactive Piotr Dalye DO Acute bronchitis SCREENING, COLON CANCER V76.51 [...] Coronary atherosclerosis of unspecified type of vessel, [place] or graft Back pain, thoracic region, left [...] po q hs for nerve pain GABAPENTIN 03793974498 Active Piotr Daley DO Active WARFARIN SODIUM 5 MG TABS 1 tablet daily WARFARIN SODIUM 06513674989 Active Simi Meyers Active TRAMADOL HCL 50 MG TABS 1 po tid with ES Tylenol TRAMADOL HCL 75637222971 Active Piotr Daley DO Active PREDNISONE 20 MG TAB 2 tablets today, then 1 tablet days 2 through 4 PREDNISONE 24142549462 No Longer Active Piotr Daley DO Active AZITHROMYCIN 250 MG TABS 2 po qd x 1 day, then 1 po qd x 4 days AZITHROMYCIN 41101628533 No Longer Active Piotr Daley DO Active IBUPROFEN 800 MG TABS 1 tab every 8 hours as needed IBUPROFEN 18249307530 No Longer Active Piotr Daley DO Active LOMOTIL 2.5-0.025 MG TAB 1 to 2 four times a day as needed for diarrhea 10/13 DIPHENOXYLATE-ATROPINE 29826496951 No Longer Active Piotr Daley DO Active WARFARIN SODIUM 4 MG TABS 1 tab every evening WARFARIN SODIUM 40969625231 No Longer Active Piotr Daley DO Active PREDNISONE 20 MG TAB 1 tablet twice daily for 2 days, then 1 tablet once daily for 2 days PREDNISONE 04450406835 No Longer Active Piotr Daley DO Active PROMETHAZINE HCL 25 MG TABS 1 four times a day as needed for nausea/vomiting PROMETHAZINE HCL 18357868748 No Longer Active Piotr Daley DO Active TUSSIONEX PENNKINETIC ER 10-8 MG/5ML LQCR 5ml po q12hr PRN Cough HYDROCOD POLST-CHLORPHEN POLST 27060497027 No Longer Active Piotr Daley DO Active AZITHROMYCIN 250 MG TABS 2 po qd x 1 day, then 1 po qd x 4 days AZITHROMYCIN 23679615831 No Longer Active Piotr Daley DO Active AZITHROMYCIN 250 MG TABS 2 po qd x 1 day, then 1 po qd x 4 days AZITHROMYCIN 44813507878 No Longer Active Piotr Daley DO Active LISINOPRIL-HYDROCHLOROTHIAZIDE 10-12.5 MG TABS 1 tab by mouth daily LISINOPRIL-HYDROCHLOROTHIAZIDE 39282756492 Active Hilary Ma MA Active LISINOPRIL 10 MG TABS 1/2-1 tab po every other day LISINOPRIL 09760482427 No Longer Active Piotr Daley DO Active VENTOLIN HFA 108 (90 BASE) MCG/ACT AERS 2 puffs four times a day PRN cough ALBUTEROL SULFATE 68465502993 No Longer Active Piotr Daley DO Active NYSTATIN-TRIAMCINOLONE 809750-7.1 UNIT/GM-% CREA Apply to area BID NYSTATIN-TRIAMCINOLONE 38435487760 No Longer Active Alena Chavira PURCHASING SUPERVISOR Active PHISOHEX 3 % LIQD Use Directed HEXACHLOROPHENE 90424882154 No Longer Active Sandra Marenisco Active AZITHROMYCIN 250 MG TABS 2 po qd x 1 day, then 1 po qd x 4 days AZITHROMYCIN 17088031879 No Longer Active Katrina Rinaldi MD PhD Active AZITHROMYCIN 250 MG TABS 2 po qd x 1 day, then 1 po qd x 4 days AZITHROMYCIN 26921934758 No Longer Active Piotr Daley DO Active AZITHROMYCIN 500 MG SOLR 1 po q day AZITHROMYCIN 37139194591 No Longer Active Piotr Daley DO Active NYSTATIN-TRIAMCINOLONE 441692-8.1 UNIT/GM-% CREA apply bid 08/19 NYSTATIN-TRIAMCINOLONE 37755116528 No Longer Active Piotr Daley DO Active IBUPROFEN 800 MG TABS 1 po q 8 hours prn pain sparinly IBUPROFEN 35198604498 No Longer Active Piotr Daley DO Active VITAMIN D3 5000 UNIT CAPS 1 po daily CHOLECALCIFEROL 91842068299 Active Piotr Daley DO Active IBUPROFEN 800 MG TABS 1 po q 8 hours prn pain sparinly IBUPROFEN 800 MG TABS 569098 IBUPROFEN Inactive NYSTATIN-TRIAMCINOLONE 992165-3.1 UNIT/GM-% CREA apply bid 08/19 NYSTATIN-TRIAMCINOLONE 204780-4.1 UNIT/GM-% CREA 1820125 NYSTATIN- TRIAMCINOLONE Inactive AZITHROMYCIN 500 MG SOLR 1 po q day AZITHROMYCIN 500 MG SOLR 25734969919 AZITHROMYCIN Inactive VENTOLIN HFA 108 (90 BASE) MCG/ACT AERS 2 puffs four times a day PRN cough VENTOLIN HFA 108 (90 BASE) MCG/ACT AERS ALBUTEROL SULFATE Inactive LISINOPRIL 10 MG TABS 1/2-1 tab po every other day LISINOPRIL 10 MG TABS 996354 LISINOPRIL Inactive TUSSIONEX PENNKINETIC ER 10-8 MG/5ML LQCR 5ml po q12hr PRN Cough TUSSIONEX PENNKINETIC ER 10-8 MG/5ML LQCR HYDROCOD POLST- CHLORPHEN POLST Inactive PROMETHAZINE HCL 25 MG TABS 1 four times a day as needed for nausea/vomiting PROMETHAZINE HCL 25 MG TABS 457475 PROMETHAZINE HCL Inactive PREDNISONE 20 MG TAB 1 tablet twice daily for 2 days, then 1 tablet once daily for 2 days PREDNISONE 20 MG TAB 826433 PREDNISONE Inactive WARFARIN SODIUM 4 MG TABS 1 tab every evening WARFARIN SODIUM 4 MG TABS 965955 WARFARIN SODIUM Inactive LOMOTIL 2.5-0.025 MG TAB 1 to 2 four times a day as needed for diarrhea 10/13 LOMOTIL 2.5-0.025 MG TAB 5619230 DIPHENOXYLATE-ATROPINE Inactive IBUPROFEN 800 MG TABS 1 tab every 8 hours as needed IBUPROFEN 800 MG TABS 914081 IBUPROFEN Inactive PREDNISONE 20 MG TAB 2 tablets today, then 1 tablet days 2 through 4 PREDNISONE 20 MG TAB 699132 PREDNISONE Inactive AZITHROMYCIN 250 MG TABS 2 po qd x 1 day, then 1 po qd x 4 days AZITHROMYCIN 250 MG TABS 1922256 AZITHROMYCIN Inactive AZITHROMYCIN 250 MG TABS 2 po qd x 1 day, then 1 po qd x 4 days AZITHROMYCIN 250 MG TABS 9144738 AZITHROMYCIN Inactive NYSTATIN-TRIAMCINOLONE 706796-1.1 UNIT/GM-% CREA Apply to area BID NYSTATIN-TRIAMCINOLONE 574390-2.1 UNIT/GM-% CREA 2479157 NYSTATIN-TRIAMCINOLONE Inactive AZITHROMYCIN 250 MG TABS 2 po qd x 1 day, then 1 po qd x 4 days AZITHROMYCIN 250 MG TABS 6390189 AZITHROMYCIN Inactive AZITHROMYCIN 250 MG TABS 2 po qd x 1 day, then 1 po qd x 4 days AZITHROMYCIN 250 MG TABS 7604177 AZITHROMYCIN Inactive AZITHROMYCIN 250 MG TABS 2 po qd x 1 day, then 1 po qd x 4 days AZITHROMYCIN 250 MG TABS 8719894 AZITHROMYCIN Inactive Advance Directives Directive Description Start [...] Panel - Chemistry sodium, serum 141 mmol/L 444-109 0333/06/28 carbon dioxide, venous blood 31.0 mmol/L 21.0-32.0 [...] Negative Encounters Code Encounter Date Provider Facility CPT-05442 Level 4 Est. Patient 17:15:07 BIODIESEL PRODUCTION ASSOCIATE Piotr Daley [facility] CPT-07660 Level 3 Est. Patient 12:46:13 BIODIESEL PRODUCTION ASSOCIATE Piotr Katie Edi [facility] CPT-13972 Level 3 Est. Patient 15:14:31 BIODIESEL PRODUCTION ASSOCIATE Piotr Katie Edi [facility] CPT-68024 Level 3 Est. Patient 09:20:13 BIODIESEL PRODUCTION ASSOCIATE Piotr Katie Edi [facility] CPT-17073 Level 3 Est. Patient 09:49:40 CDT Piotr Katie Edi [facility] CPT-41503 Level 3 Est. Patient 16:28:11 CDT Piotr Katie Edi [facility] CPT-35769 Level 3 Est. Patient 12:41:58 [employer]ODIESEL PRODUCTION ASSOCIATE Piotr Katie Edi [facility] CPT-61748 Level 3 Est. Patient 09:21:24 CDT Piotr Daley [facility] CPT-34111 Level 3 Est. Patient 09:21:11 CDT Piotr Katie Edi [facility] CPT-22944 Level 3 Est. Patient 11:16:29 BIODIESEL PRODUCTION ASSOCIATE Piotr Daley [facility] CPT-27842 Level 3 Est. Patient 18:40:19 BIODIESEL PRODUCTION ASSOCIATE Piotr Daley [facility] CPT-63508 Level 3 Est. Patient 19:30:50 CDT Piort Daley [facility] CPT-80534 Level 3 Est. Patient 22:06:44 CDT Katrina Rinaldi MD [facility] CPT-53033 Level 3 Est. Patient 14:20:00 CDT Piotr Daley [facility] CPT-63865 Level 3 Est. Patient 14:15:22 [employer]ODIESEL PRODUCTION ASSOCIATE Piotr Daley [facility] CPT-86808 Level 3 Est. Patient 20:19:57 BIODIESEL PRODUCTION ASSOCIATE Piotr Daley [facility] CPT-04422 Level 3 Est. Patient 16:44:32 CDT Piotr Daley [facility] CPT-70033 Level 3 Est. Patient 08:48:46 [employer]ODIESEL PRODUCTION ASSOCIATE Piotr Daley [facility] CPT-35623 Level 3 Est. Patient 21:01:21 CDT Piotr Daley [facility] Procedures Code Procedure Name Date Entry Date Standard Description CPT-76437 Creatinine - LAB USE ONLY 14:37:55 [employer]EL PRODUCTION ASSOCIATE CPT-46400 PT/INR - LAB USE ONLY 14:37:55 [employer]ODIESEL PRODUCTION ASSOCIATE CPT-67556 Venipuncture Draw Fee 14:37:55 [employer]ODIESEL PRODUCTION ASSOCIATE CPT-27774 LS spine comp w obliques - XRAY USE ONLY 12:59:25 [employer]IESEL [employer]ODUCTION ASSOCIATE CPT-64039 PT/INR - LAB USE ONLY 13:49:20 CDT CPT-93746 Venipuncture Draw Fee 13:49:19 CDT CPT-17970 PT/INR - LAB USE ONLY 15:48:49 CDT CPT-40435 Venipuncture Draw Fee 15:48:49 CDT CPT-25172 Venipuncture Draw Fee 11:31:59 CDT CPT-02015 PT/INR - LAB USE ONLY 11:31:59 CDT CPT-32179 Venipuncture Draw Fee 13:29:15 CDT CPT-79231 Thoracolumbar AP/Lat 15:19:19 [employer]EL [employer]ODUCTION ASSOCIATE CPT-G0438 Initial Annual Wellness Exam 12:18:54 [employer]EL [employer]ODUCTION ASSOCIATE CPT-40796 Knee 3V 09:57:38 CDT CPT-OV Office Visit 15:45:01 [employer]IESEL PRODUCTION ASSOCIATE CPT-55745 Abd compl w upright 17:10:25 CDT
--- OUTSIDE RECORDS SUMMARY | 2018-07-18 08:11 | XMS REPORT | Clinical Summary ---
Author Author Admin, Bita Organization [employer] Address Unknown Phone Unavailable Allergies, Adverse Reactions, [...] Emelyn Goode Rachealbita Sacroiliitis, not elsewhere classified FLANK PAIN, RIGHT ICD-789.09 Inactive Katrina Rinaldi MD PhD HEALTH MAINTENANCE EXAM ICD-V70.0 Inactive Katrina Rinaldi MD PhD BRONCHITIS-ACUTE ICD-466.0 Inactive Piotr Daley DO SCREENING, COLON CANCER ICD-V76.51 Inactive Katrina Rinaldi MD PhD BRONCHITIS-ACUTE ICD-466.0 Inactive Piotr Daley DO DEEP VENOUS THROMBOPHLEBITIS, LEG, 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 Inactive Sirisha Gustavo LOO Seborrheic keratosis ICD-702.19 Inactive Sirisha Chen EZE Bronchitis-Acute ICD-466.0 Inactive Piotr Daley DO Leg pain, right ICD-729.5 Inactive Sirisha Gustavo LOO Right leg pain ICD-729.5 Inactive Sirisha Chen ADMISSIONS ADVISOR Bronchitis-Acute ICD-466.0 Inactive Sirisha Chen ADMISSIONS ADVISOR Knee pain, left ICD-719.46 Inactive Sirisha Chen ADMISSIONS ADVISOR Actinic keratoses ICD-702.0 Inactive Sirisha Chen ADMISSIONS ADVISOR Back pain, thoracic region, left ICD-724.1 Inactive Piotr Daley DO Thoracic back pain ICD-724.5 Inactive Sirisha Chen ADMISSIONS ADVISOR Back pain lumbar ICD-724.2 Inactive Sirisha Chen ADMISSIONS ADVISOR Insect bite ICD-919.4 Inactive Sirisha Chen ADMISSIONS ADVISOR Pruritus ICD-698.9 Inactive Sirisha Chen ADMISSIONS ADVISOR 04/09 Bronchitis-Acute ICD-466.0 Inactive Sirisha Chen ADMISSIONS ADVISOR Dyspnea ICD-786.09 Inactive Sirisha Chen ADMISSIONS ADVISOR 05/09 DEEP VENOUS THROMBOPHLEBITIS, LEG, 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 Inactive Sirisha Chen ADMISSIONS ADVISOR Medication List Medication Instructions Start Date Stop Date Generic Name NDC Status Provider Patient Instruction WARFARIN SODIUM 4 MG ORAL TABLET 1 tablet by mouth daily except 2mg on Saturday and Saturday WARFARIN SODIUM 30573845831 Active Anahy oLja Active MELOXICAM 15 MG ORAL TABLET 1 po q day for pain with food MELOXICAM 00864040874 Active Piotr Daley DO Active PREDNISONE 10 MG ORAL TABLET 1 tablet by mouth daily PREDNISONE 41189699077 No Longer Active Emelyn Norris Active TESSALON PERLES 100 MG ORAL CAPSULE 1-2 tablet by mouth 3 times daily 04/16 BENZONATATE 17253318734 No Longer Active Emelyn Norris Active PREDNISONE 20 MG ORAL TABLET two tabs by mouth today, then one tab by mouth days two and three PREDNISONE 68454512776 No Longer Active Piotr W Edi DO Active CYCLOBENZAPRINE HCL 10 MG ORAL TABLET 1 tablet by mouth three times daily as needed for muscle spasm/pain CYCLOBENZAPRINE HCL 17126140817 Active Sirisha Chen LPN Active ZITHROMAX 250 MG ORAL TABLET Take two (2 ) tablets day one, then one (1) tablet a day for four (4) more days AZITHROMYCIN 16618102380 No Longer Active Piotr Daley DO Active PROAIR HFA 108 (90 BASE) MCG/ACT INHALATION AEROSOL SOLUTION 1-2 puffs four times a day as needed ALBUTEROL SULFATE 85848213513 No Longer Active Emelyn Norris Active DOXYCYCLINE HYCLATE 100 MG ORAL CAPSULE 1 cap by mouth BID x10 days DOXYCYCLINE HYCLATE 89836580057 No Longer Active Nella Harris APRN Active PREDNISONE 20 MG ORAL TABLET 2 tabs daily for 3 days, 1 tab daily for 3 days, 1/2 tab daily for 2 days PREDNISONE 33198854193 No Longer Active Matthew Rangel MD Active TRAMADOL HCL 50 MG ORAL TABLET 1 po tid with ES Tylenol TRAMADOL HCL 09428345818 No Longer Active Matthew Rangel MD Active GABAPENTIN 300 MG ORAL CAPSULE 1 po q hs for nerve pain GABAPENTIN 08308534991 No Longer Active Matthew Rangel MD Active PREDNISONE 20 MG ORAL TABLET 2 tablets today, then 1 tablet days 2 through 4 PREDNISONE 47069572825 No Longer Active Piotr Daley DO Active AZITHROMYCIN 250 MG ORAL TABLET 2 po qd x 1 day, then 1 po qd x 4 days 07/12 AZITHROMYCIN 88806255686 No Longer Active Piotr Daley DO Active IBUPROFEN 800 MG ORAL TABLET 1 tab every 8 hours as needed 07/12 IBUPROFEN 73710809881 No Longer Active Piotr Daley DO Active LOMOTIL 2.5-0.025 MG ORAL TABLET 1 to 2 four times a day as needed for diarrhea DIPHENOXYLATE-ATROPINE 05164269254 No Longer Active Piotr Daley DO Active WARFARIN SODIUM 4 MG ORAL TABLET 1 tab every evening WARFARIN SODIUM 13327104001 No Longer Active Piotr Daley DO Active PREDNISONE 20 MG ORAL TABLET 1 tablet twice daily for 2 days, then 1 tablet once daily for 2 days PREDNISONE 86673382649 No Longer Active Piotr Daley DO Active PROMETHAZINE HCL 25 MG ORAL TABLET 1 four times a day as needed for nausea/ vomiting PROMETHAZINE HCL 15788215829 No Longer Active Piotr Daley DO Active TUSSIONEX PENNKINETIC ER 10-8 MG/5ML ORAL SUSPENSION EXTENDED RELEASE 5ml po q12hr PRN Cough HYDROCOD POLST-CHLORPHEN POLST 26615441730 No Longer Active Piotr Daley DO Active AZITHROMYCIN 250 MG ORAL TABLET 2 po qd x 1 day, then 1 po qd x 4 days 10/13 AZITHROMYCIN 58741127741 No Longer Active Piotr Daley DO Active AZITHROMYCIN 250 MG ORAL TABLET 2 po qd x 1 day, then 1 po qd x 4 days 05/07 AZITHROMYCIN 78517660398 No Longer Active Piotr Daley DO Active LISINOPRIL-HYDROCHLOROTHIAZIDE 10-12.5 MG ORAL TABLET 1 tab by mouth daily LISINOPRIL-HYDROCHLOROTHIAZIDE 49633433637 Active Piotr Daley DO Active LISINOPRIL 10 MG ORAL TABLET 1/2-1 tab po every other day LISINOPRIL 62596474409 No Longer Active Piotr Daley DO Active VENTOLIN HFA 108 (90 Base) MCG/ACT INHALATION AEROSOL SOLUTION 2 puffs four times a day PRN cough ALBUTEROL SULFATE 72446027608 No Longer Active Piotr Daley DO Active NYSTATIN-TRIAMCINOLONE 821094-3.1 UNIT/GM-% EXTERNAL CREAM Apply to area BID NYSTATIN-TRIAMCINOLONE 74405380852 No Longer Active Alena Chavira ADMISSIONS ADVISOR Active PHISOHEX 3 % LIQD Use Directed HEXACHLOROPHENE 49596843309 No Longer Active Sandra Redig Active AZITHROMYCIN 250 MG ORAL TABLET 2 po qd x 1 day, then 1 po qd x 4 days 10/21 AZITHROMYCIN 05512605890 No Longer Active Katrina Rinaldi MD PhD Active AZITHROMYCIN 250 MG ORAL TABLET 2 po qd x 1 day, then 1 po qd x 4 days 10/16 AZITHROMYCIN 25220181412 No Longer Active Piotr Daley DO Active AZITHROMYCIN 500 MG INTRAVENOUS SOLUTION RECONSTITUTED 1 po q day AZITHROMYCIN 99695618645 No Longer Active Piotr Daley DO Active NYSTATIN-TRIAMCINOLONE 846750-1.1 UNIT/GM-% EXTERNAL CREAM apply bid NYSTATIN-TRIAMCINOLONE 14633930597 No Longer Active Piotr Daley DO Active IBUPROFEN 800 MG ORAL TABLET 1 po q 8 hours prn pain sparinly IBUPROFEN 47454397686 No Longer Active Piotr Daley DO Active VITAMIN D3 5000 UNIT ORAL CAPSULE 1 po daily CHOLECALCIFEROL 20284009016 Active Piotr Daley DO Active IBUPROFEN 800 MG ORAL TABLET 1 po q 8 hours prn pain sparinly IBUPROFEN 800 MG ORAL TABLET 723788 IBUPROFEN Inactive NYSTATIN-TRIAMCINOLONE 699731-1.1 UNIT/GM-% EXTERNAL CREAM apply bid NYSTATIN-TRIAMCINOLONE 509742-0.1 UNIT/GM-% EXTERNAL CREAM 2885476 NYSTATIN-TRIAMCINOLONE Inactive AZITHROMYCIN 500 MG INTRAVENOUS SOLUTION RECONSTITUTED 1 po q day AZITHROMYCIN 500 MG INTRAVENOUS SOLUTION RECONSTITUTED 41130818308 AZITHROMYCIN Inactive VENTOLIN HFA 108 (90 Base) MCG/ACT INHALATION AEROSOL SOLUTION 2 puffs four times a day PRN cough VENTOLIN HFA 108 (90 Base) MCG/ ACT INHALATION AEROSOL SOLUTION ALBUTEROL SULFATE Inactive LISINOPRIL 10 MG ORAL TABLET 1/2-1 tab po every other day LISINOPRIL 10 MG ORAL TABLET 233751 LISINOPRIL Inactive TUSSIONEX PENNKINETIC ER 10-8 MG/5ML ORAL SUSPENSION EXTENDED RELEASE 5ml po q12hr PRN Cough TUSSIONEX PENNKINETIC ER 10-8 MG/5ML ORAL SUSPENSION EXTENDED RELEASE HYDROCOD POLST-CHLORPHEN POLST Inactive PROMETHAZINE HCL 25 MG ORAL TABLET 1 four times a day as needed for nausea/ vomiting PROMETHAZINE HCL 25 MG ORAL TABLET 804787 PROMETHAZINE HCL Inactive PREDNISONE 20 MG ORAL TABLET 1 tablet twice daily for 2 days, then 1 tablet once daily for 2 days PREDNISONE 20 MG ORAL TABLET 210782 PREDNISONE Inactive WARFARIN SODIUM 4 MG ORAL TABLET 1 tab every evening WARFARIN SODIUM 4 MG ORAL TABLET 999035 WARFARIN SODIUM Inactive LOMOTIL 2.5-0.025 MG ORAL TABLET 1 to 2 four times a day as needed for diarrhea LOMOTIL 2.5-0.025 MG ORAL TABLET 2519262 DIPHENOXYLATE-ATROPINE Inactive IBUPROFEN 800 MG ORAL TABLET 1 tab every 8 hours as needed 07/12 IBUPROFEN 800 MG ORAL TABLET 283746 IBUPROFEN Inactive PREDNISONE 20 MG ORAL TABLET 2 tablets today, then 1 tablet days 2 through 4 PREDNISONE 20 MG ORAL TABLET 773160 PREDNISONE Inactive GABAPENTIN 300 MG ORAL CAPSULE 1 po q hs for nerve pain GABAPENTIN 300 MG ORAL CAPSULE 850660 GABAPENTIN Inactive TRAMADOL HCL 50 MG ORAL TABLET 1 po tid with ES Tylenol TRAMADOL HCL 50 MG ORAL TABLET 921962 TRAMADOL HCL Inactive PROAIR HFA 108 (90 BASE) MCG/ACT INHALATION AEROSOL SOLUTION 1-2 puffs four times a day as needed PROAIR HFA 108 (90 BASE) MCG/ACT INHALATION AEROSOL SOLUTION ALBUTEROL SULFATE Inactive PREDNISONE 20 MG ORAL TABLET two tabs by mouth today, then one tab by mouth days two and three PREDNISONE 20 MG ORAL TABLET 158810 PREDNISONE Inactive TESSALON PERLES 100 MG ORAL CAPSULE 1-2 tablet by mouth 3 times daily 04/16 TESSALON PERLES 100 MG ORAL CAPSULE 785538 BENZONATATE Inactive PREDNISONE 10 MG ORAL TABLET 1 tablet by mouth daily PREDNISONE 10 MG ORAL TABLET 203448 PREDNISONE Inactive AZITHROMYCIN 250 MG ORAL TABLET 2 po qd x 1 day, then 1 po qd x 4 days 10/16 AZITHROMYCIN 250 MG ORAL TABLET 168785 AZITHROMYCIN Inactive AZITHROMYCIN 250 MG ORAL TABLET 2 po qd x 1 day, then 1 po qd x 4 days 10/21 AZITHROMYCIN 250 MG ORAL TABLET 983612 AZITHROMYCIN Inactive NYSTATIN-TRIAMCINOLONE 269203-4.1 UNIT/GM-% EXTERNAL CREAM Apply to area BID NYSTATIN-TRIAMCINOLONE 728646-0.1 UNIT/GM-% EXTERNAL CREAM 6480991 NYSTATIN-TRIAMCINOLONE Inactive AZITHROMYCIN 250 MG ORAL TABLET 2 po qd x 1 day, then 1 po qd x 4 days 05/07 AZITHROMYCIN 250 MG ORAL TABLET 633420 AZITHROMYCIN Inactive AZITHROMYCIN 250 MG ORAL TABLET 2 po qd x 1 day, then 1 po qd x 4 days 10/13 AZITHROMYCIN 250 MG ORAL TABLET 049409 AZITHROMYCIN Inactive AZITHROMYCIN 250 MG ORAL TABLET 2 po qd x 1 day, then 1 po qd x 4 days 07/12 AZITHROMYCIN 250 MG ORAL TABLET 131283 AZITHROMYCIN Inactive PREDNISONE 20 MG ORAL TABLET 2 tabs daily for 3 days, 1 tab daily for 3 days, 1/2 tab daily for 2 days PREDNISONE 20 MG ORAL TABLET 094630 PREDNISONE Inactive DOXYCYCLINE HYCLATE 100 MG ORAL CAPSULE 1 cap by mouth BID x10 days DOXYCYCLINE HYCLATE 100 MG ORAL CAPSULE 7604903 DOXYCYCLINE HYCLATE Inactive ZITHROMAX 250 MG ORAL TABLET Take two (2 ) tablets day one, then one (1) tablet a day for four (4) more days ZITHROMAX 250 MG ORAL TABLET 323829 AZITHROMYCIN Inactive Advance Directives Directive Description Start [...] % 11.0-15.0 platelet count 172 THOUSAND/UL 10*3/mm3 899-067 9550/04/12 mean platelet volume 8.6 fL 7.5-12.5 mean corpuscular volume, RBC 83.9 fL 80.0-100.0 hematocrit, blood 43.0 % 38.5-50.0 hemoglobin, blood 14.4 g/dL 13.2-17.1 erythrocyte (RBC) count 5.13 MILLION/UL 10*6/mm3 4.20-5.80 leukocyte count, blood 5.4 THOUSAND/UL 10*3/mm3 3.8-10.8 Lab Report: Prothrombin Time Hemochron - Coagulation prothrombin time (patient) 33.0 SECS s 18.9-24.9 Encounters Code Encounter Date Provider Facility CPT-06354 Level 3 Est. Patient 15:59:25 SHANK SCOURER Piotr Daley [facility] CPT-74993 Level 3 Est. Patient 12:33:59 SHANK SCOURER Piotr Daley [facility] CPT-24414 Level 3 Est. Patient 15:56:17 SHANK SCOURER Piotr Daley [facility] CPT-92701 Level 3 Est. Patient 10:34:54 SHANK SCOURER Piotr Daley [facility] CPT-77933 Level 3 Est. Patient 17:10:19 CDT Nella Harris APRN [facility] CPT-65964 Level 3 Est. Patient 10:48:17 SHANK SCOURER Matthew Rangel MD [facility] CPT-74831 Level 4 Est. Patient 17:15:07 SHANK SCOURER Piotr Daley [facility] CPT-98805 Level 3 Est. Patient 12:46:13 SHANK SCOURER Piotr Daley [facility] CPT-19472 Level 3 Est. Patient 15:14:31 SHANK SCOURER Piotr Katie Daley [facility] CPT-99461 Level 3 Est. Patient 09:20:13 SHANK SCOURER Piotr Katie Daley [facility] CPT-17727 Level 3 Est. Patient 09:49:40 CDT Piotr Katie Daley [facility] CPT-79551 Level 3 Est. Patient 16:28:11 CDT Piotr Daley [facility] CPT-04646 Level 3 Est. Patient 12:41:58 SHANK SCOURER Piotr Daley [facility] CPT-62581 Level 3 Est. Patient 09:21:24 CDT Piotr Daley [facility] CPT-43233 Level 3 Est. Patient 09:21:11 CDT Piotr Daley [facility] CPT-72602 Level 3 Est. Patient 11:16:29 SHANK SCOURER Piotr Katie Daley [facility] CPT-31565 Level 3 Est. Patient 18:40:19 SHANK SCOURER Piotr Daley [facility] CPT-34420 Level 3 Est. Patient 19:30:50 CDT Poitr Daley [facility] CPT-84848 Level 3 Est. Patient 22:06:44 CDT Katrina Rinaldi MD [facility] CPT-56697 Level 3 Est. Patient 14:20:00 CDT Piotr Daley [facility] CPT-77863 Level 3 Est. Patient 14:15:22 SHANK SCOURER Piotr Daley [facility] CPT-63578 Level 3 Est. Patient 20:19:57 SHANK SCOURER Piotr Daley [facility] CPT-77094 Level 3 Est. Patient 16:44:32 CDT Piotr Daley [facility] CPT-85234 Level 3 Est. Patient 08:48:46 SHANK SCOURER Piotr Daley [facility] CPT-22832 Level 3 Est. Patient 21:01:21 CDT Piotr Daley DO [facility] Procedures Code Procedure Name Date Entry Date Standard Description CPT-40696 Sacroiliac jt < 3V - XRAY USE ONLY 16:45:19 SHANK SCOURER 05/09 CPT-55830 LS spine comp w obliques - XRAY USE ONLY 14:52:26 SHANK SCOURER CPT-56079 Chest, 2 views 12:55:58 SHANK SCOURER CPT-G0439 Subsequent Annual Wellness Exam 10:34:52 SHANK SCOURER CPT-94016 BMP - LAB USE ONLY 17:19:11 SHANK SCOURER CPT-35001 PT/INR - LAB USE ONLY 17:19:10 SHANK SCOURER CPT-11208 Venipuncture Draw Fee 17:19:10 SHANK SCOURER CPT-71051 PT/INR - LAB USE ONLY 08:12:25 SHANK SCOURER CPT-31371 Venipuncture Draw Fee 08:12:24 SHANK SCOURER CPT-98289 Venipuncture Draw Fee 11:31:07 SHANK SCOURER CPT-85163 TPSA - LAB USE ONLY 11:31:07 [facility] CPT-00387 PT/INR - LAB USE ONLY 11:31:07 SHANK SCOURER CPT-G0439 Subsequent Annual Wellness Exam 09:59:29 SHANK SCOURER CPT-96079 Creatinine - LAB USE ONLY 14:37:55 SHANK SCOURER CPT-90024 PT/INR - LAB USE ONLY 14:37:55 SHANK SCOURER CPT-54219 Venipuncture Draw Fee 14:37:55 SHANK SCOURER CPT-56874 LS spine comp w obliques - XRAY USE ONLY 12:59:25 SHANK SCOURER CPT-20544 PT/INR - LAB USE ONLY 13:49:20 CDT CPT-49690 Venipuncture Draw Fee 13:49:19 CDT CPT-28005 PT/INR - LAB USE ONLY 15:48:49 CDT CPT-23377 Venipuncture Draw Fee 15:48:49 CDT CPT-64945 Venipuncture Draw Fee 11:31:59 CDT CPT-68849 PT/INR - LAB USE ONLY 11:31:59 CDT CPT-62980 Venipuncture Draw Fee 13:29:15 CDT CPT-40743 Thoracolumbar AP/Lat 15:19:19 SHANK SCOURER CPT-G0438 Initial Annual Wellness Exam 12:18:54 SHANK SCOURER CPT-31100 Knee 3V 09:57:38 CDT CPT-OV Office Visit 15:45:01 SHANK SCOURER CPT-41332 Abd compl w upright 17:10:25 CDT
--- OUTSIDE RECORDS SUMMARY | 2018-07-18 08:12 | XMS REPORT | Clinical Summary ---
Author Author Admin, Isidra Organization [employer] Address Unknown Phone Unavailable Allergies, Adverse Reactions, [...] po q hs for nerve pain GABAPENTIN 21947460289 Active Piotr Daley DO Active WARFARIN SODIUM 5 MG TABS 1 tablet daily WARFARIN SODIUM 45031707267 Active Simi Meyers Active TRAMADOL HCL 50 MG TABS 1 po tid with ES Tylenol TRAMADOL HCL 58344381193 Active Piotr Daley DO Active PREDNISONE 20 MG TAB 2 tablets today, then 1 tablet days 2 through 4 PREDNISONE 84624949223 No Longer Active Piotr Daley DO Active AZITHROMYCIN 250 MG TABS 2 po qd x 1 day, then 1 po qd x 4 days AZITHROMYCIN 38832253517 No Longer Active Piotr Daley DO Active IBUPROFEN 800 MG TABS 1 tab every 8 hours as needed IBUPROFEN 98423320164 No Longer Active Piotr Daley DO Active LOMOTIL 2.5-0.025 MG TAB 1 to 2 four times a day as needed for diarrhea 10/13 DIPHENOXYLATE-ATROPINE 08992000573 No Longer Active Piotr Daley DO Active WARFARIN SODIUM 4 MG TABS 1 tab every evening WARFARIN SODIUM 96084119216 No Longer Active Piotr Daley DO Active PREDNISONE 20 MG TAB 1 tablet twice daily for 2 days, then 1 tablet once daily for 2 days PREDNISONE 94851645945 No Longer Active Piotr Daley DO Active PROMETHAZINE HCL 25 MG TABS 1 four times a day as needed for nausea/vomiting PROMETHAZINE HCL 21457485628 No Longer Active Piotr Daley DO Active TUSSIONEX PENNKINETIC ER 10-8 MG/5ML LQCR 5ml po q12hr PRN Cough HYDROCOD POLST-CHLORPHEN POLST 68421540125 No Longer Active Piotr Daley DO Active AZITHROMYCIN 250 MG TABS 2 po qd x 1 day, then 1 po qd x 4 days AZITHROMYCIN 61701082960 No Longer Active Piotr Daley DO Active AZITHROMYCIN 250 MG TABS 2 po qd x 1 day, then 1 po qd x 4 days AZITHROMYCIN 82739938903 No Longer Active Piotr Daley DO Active LISINOPRIL-HYDROCHLOROTHIAZIDE 10-12.5 MG TABS 1 tab by mouth daily LISINOPRIL-HYDROCHLOROTHIAZIDE 54337537696 Active Simi Meyers Active LISINOPRIL 10 MG TABS 1/2-1 tab po every other day LISINOPRIL 52360544602 No Longer Active Piotr Daley DO Active VENTOLIN HFA 108 (90 BASE) MCG/ACT AERS 2 puffs four times a day PRN cough ALBUTEROL SULFATE 04429635870 No Longer Active Piotr Daley DO Active NYSTATIN-TRIAMCINOLONE 793584-2.1 UNIT/GM-% CREA Apply to area BID NYSTATIN-TRIAMCINOLONE 80944799051 No Longer Active Alena Chavira BUFFER CHROME Active PHISOHEX 3 % LIQD Use Directed HEXACHLOROPHENE 08923966412 No Longer Active Sandra [place] Active AZITHROMYCIN 250 MG TABS 2 po qd x 1 day, then 1 po qd x 4 days AZITHROMYCIN 92923313121 No Longer Active Katrina Rinaldi MD PhD Active AZITHROMYCIN 250 MG TABS 2 po qd x 1 day, then 1 po qd x 4 days AZITHROMYCIN 29113773094 No Longer Active Piotr Daley DO Active AZITHROMYCIN 500 MG SOLR 1 po q day AZITHROMYCIN 43191873833 No Longer Active Piotr Daley DO Active NYSTATIN-TRIAMCINOLONE 106395-6.1 UNIT/GM-% CREA apply bid 08/19 NYSTATIN-TRIAMCINOLONE 39188800723 No Longer Active Piotr Daley DO Active IBUPROFEN 800 MG TABS 1 po q 8 hours prn pain sparinly IBUPROFEN 94212705033 No Longer Active Piotr Daley DO Active VITAMIN D3 5000 UNIT CAPS 1 po daily CHOLECALCIFEROL 40609903377 Active Piotr Daley DO Active IBUPROFEN 800 MG TABS 1 po q 8 hours prn pain sparinly IBUPROFEN 800 MG TABS 157488 IBUPROFEN Inactive NYSTATIN-TRIAMCINOLONE 622995-0.1 UNIT/GM-% CREA apply bid 08/19 NYSTATIN-TRIAMCINOLONE 312877-6.1 UNIT/GM-% CREA 1619380 NYSTATIN- TRIAMCINOLONE Inactive AZITHROMYCIN 500 MG SOLR 1 po q day AZITHROMYCIN 500 MG SOLR 60525299244 AZITHROMYCIN Inactive VENTOLIN HFA 108 (90 BASE) MCG/ACT AERS 2 puffs four times a day PRN cough VENTOLIN HFA 108 (90 BASE) MCG/ACT AERS ALBUTEROL SULFATE Inactive LISINOPRIL 10 MG TABS 1/2-1 tab po every other day LISINOPRIL 10 MG TABS 191286 LISINOPRIL Inactive TUSSIONEX PENNKINETIC ER 10-8 MG/5ML LQCR 5ml po q12hr PRN Cough TUSSIONEX PENNKINETIC ER 10-8 MG/5ML LQCR HYDROCOD POLST- CHLORPHEN POLST Inactive PROMETHAZINE HCL 25 MG TABS 1 four times a day as needed for nausea/vomiting PROMETHAZINE HCL 25 MG TABS 375352 PROMETHAZINE HCL Inactive PREDNISONE 20 MG TAB 1 tablet twice daily for 2 days, then 1 tablet once daily for 2 days PREDNISONE 20 MG TAB 656639 PREDNISONE Inactive WARFARIN SODIUM 4 MG TABS 1 tab every evening WARFARIN SODIUM 4 MG TABS 701592 WARFARIN SODIUM Inactive LOMOTIL 2.5-0.025 MG TAB 1 to 2 four times a day as needed for diarrhea 10/13 LOMOTIL 2.5-0.025 MG TAB 8974410 DIPHENOXYLATE-ATROPINE Inactive IBUPROFEN 800 MG TABS 1 tab every 8 hours as needed IBUPROFEN 800 MG TABS 485754 IBUPROFEN Inactive PREDNISONE 20 MG TAB 2 tablets today, then 1 tablet days 2 through 4 PREDNISONE 20 MG TAB 157575 PREDNISONE Inactive AZITHROMYCIN 250 MG TABS 2 po qd x 1 day, then 1 po qd x 4 days AZITHROMYCIN 250 MG TABS 6333486 AZITHROMYCIN Inactive AZITHROMYCIN 250 MG TABS 2 po qd x 1 day, then 1 po qd x 4 days AZITHROMYCIN 250 MG TABS 5058461 AZITHROMYCIN Inactive NYSTATIN-TRIAMCINOLONE 377321-1.1 UNIT/GM-% CREA Apply to area BID NYSTATIN-TRIAMCINOLONE 677743-0.1 UNIT/GM-% CREA 4876908 NYSTATIN-TRIAMCINOLONE Inactive AZITHROMYCIN 250 MG TABS 2 po qd x 1 day, then 1 po qd x 4 days AZITHROMYCIN 250 MG TABS 0031271 AZITHROMYCIN Inactive AZITHROMYCIN 250 MG TABS 2 po qd x 1 day, then 1 po qd x 4 days AZITHROMYCIN 250 MG TABS 7613272 AZITHROMYCIN Inactive AZITHROMYCIN 250 MG TABS 2 po qd x 1 day, then 1 po qd x 4 days AZITHROMYCIN 250 MG TABS 4928862 AZITHROMYCIN Inactive Advance Directives Directive Description Start [...] Panel - Chemistry sodium, serum 141 mmol/L 888-542 5087/06/28 carbon dioxide, venous blood 31.0 mmol/L 21.0-32.0 [...] 1.0-3.5 Encounters Code Encounter Date Provider Facility CPT-72931 Level 4 Est. Patient 17:15:07 DIE REPAIR Piotr Daley [facility] CPT-04042 Level 3 Est. Patient 12:46:13 DIE REPAIR Piotr Daley [facility] CPT-42573 Level 3 Est. Patient 15:14:31 DIE REPAIR Piotr Wilson [facility] CPT-09019 Level 3 Est. Patient 09:20:13 DIE REPAIR Piotr Daley [facility] CPT-37209 Level 3 Est. Patient 09:49:40 CDT Piotr Wilson [facility] CPT-54529 Level 3 Est. Patient 16:28:11 CDT [facility]38987 Level 3 Est. Patient 12:41:58 DIE REPAIR Piotr Daley [facility] CPT-12797 Level 3 Est. Patient 09:21:24 CDT Piotr Daley [facility] CPT-56119 Level 3 Est. Patient 09:21:11 CDT Piotr Daley [facility] CPT-79483 Level 3 Est. Patient 11:16:29 DIE REPAIR Piotr Daley [facility] CPT-86761 Level 3 Est. Patient 18:40:19 DIE REPAIR Piotr Daley [facility] CPT-34105 Level 3 Est. Patient 19:30:50 CDT Piotr Daley [facility] CPT-01216 Level 3 Est. Patient 22:06:44 CDT Katrina Rinaldi MD [facility] CPT-42329 Level 3 Est. Patient 14:20:00 CDT Piotr Daley [facility] CPT-25573 Level 3 Est. Patient 14:15:22 DIE REPAIR Piotr Dlaey [facility] CPT-62102 Level 3 Est. Patient 20:19:57 DIE REPAIR Piotr Daley [facility] CPT-44211 Level 3 Est. Patient 16:44:32 CDT Piotr Daley [facility] CPT-19194 Level 3 Est. Patient 08:48:46 DIE REPAIR Piotr Daley [facility] CPT-69201 Level 3 Est. Patient 21:01:21 CDT Piotr Wilson [facility] Procedures Code Procedure Name Date Entry Date Standard Description CPT-38091 PT/INR - LAB USE ONLY 08:12:25 DIE REPAIR CPT-76076 Venipuncture Draw Fee 08:12:24 DIE REPAIR CPT-07886 Venipuncture Draw Fee 11:31:07 DIE REPAIR CPT-53323 TPSA - LAB USE ONLY 11:31:07 DIE REPAIR CPT-15296 PT/INR - LAB USE ONLY 11:31:07 DIE REPAIR CPT-G0439 Subsequent Annual Wellness Exam 09:59:29 DIE REPAIR CPT-06609 Creatinine - LAB USE ONLY 14:37:55 DIE REPAIR CPT-39456 PT/INR - LAB USE ONLY 14:37:55 DIE REPAIR CPT-05451 Venipuncture Draw Fee 14:37:55 DIE REPAIR CPT-92076 LS spine comp w obliques - XRAY USE ONLY 12:59:25 DIE REPAIR CPT-77721 PT/INR - LAB USE ONLY 13:49:20 CDT CPT-47954 Venipuncture Draw Fee 13:49:19 CDT CPT-57729 PT/INR - LAB USE ONLY 15:48:49 CDT CPT-39445 Venipuncture Draw Fee 15:48:49 CDT CPT-11774 Venipuncture Draw Fee 11:31:59 CDT CPT-15461 PT/INR - LAB USE ONLY 11:31:59 CDT CPT-58553 Venipuncture Draw Fee 13:29:15 CDT CPT-50995 Thoracolumbar AP/Lat 15:19:19 DIE REPAIR CPT-G0438 Initial Annual Wellness Exam 12:18:54 DIE REPAIR CPT-58779 Knee 3V 09:57:38 CDT CPT-OV Office Visit 15:45:01 DIE REPAIR CPT-29459 Abd compl w upright 17:10:25 CDT
--- OUTSIDE RECORDS SUMMARY | 2018-07-18 08:13 | XMS REPORT | Clinical Summary ---
Author Author Admin, YONG Organization [facility] Address Unknown Phone Unavailable Allergies, [...] lower leg Health maintenance exam V70.0 Active Adirane Rojo LPN Routine general medical examination at a health care facility Actinic keratoses 702.0 Active Piotr Katie Edi DO Actinic keratosis Personal history of malignant neoplasm of prostate V10.46 Active Alina Meyers CAP MAKER Personal history of malignant neoplasm of prostate Coronary artery disease 414.00 Active Alina Meyers APRN Coronary atherosclerosis of unspecified type of vessel, [place] or graft Back pain, thoracic region, left [...] po tid with ES Tylenol TRAMADOL HCL 60885882703 Active Piotr Daley DO Active WARFARIN SODIUM 5 MG TABS 1 tablet daily except for Saturday and Sat 1/2 tablet. WARFARIN SODIUM 45190870268 Active Piotr Daley DO Active PREDNISONE 20 MG TAB 2 tablets today, then 1 tablet days 2 through 4 PREDNISONE 31906928985 No Longer Active Piotr Daley DO Active AZITHROMYCIN 250 MG TABS 2 po qd x 1 day, then 1 po qd x 4 days AZITHROMYCIN 06365141903 No Longer Active Piotr Daley DO Active IBUPROFEN 800 MG TABS 1 tab every 8 hours as needed IBUPROFEN 64103730618 No Longer Active Piotr Daley DO Active LOMOTIL 2.5-0.025 MG TAB 1 to 2 four times a day as needed for diarrhea 10/13 DIPHENOXYLATE-ATROPINE 82147257151 No Longer Active Piotr Daley DO Active WARFARIN SODIUM 4 MG TABS 1 tab every evening WARFARIN SODIUM 45321069337 No Longer Active Piotr Daley DO Active PREDNISONE 20 MG TAB 1 tablet twice daily for 2 days, then 1 tablet once daily for 2 days PREDNISONE 39509437756 No Longer Active Piotr Daley DO Active PROMETHAZINE HCL 25 MG TABS 1 four times a day as needed for nausea/vomiting PROMETHAZINE HCL 15727764757 No Longer Active Piotr Daley DO Active TUSSIONEX PENNKINETIC ER 10-8 MG/5ML LQCR 5ml po q12hr PRN Cough HYDROCOD POLST-CHLORPHEN POLST 45443008997 No Longer Active Piotr Daley DO Active AZITHROMYCIN 250 MG TABS 2 po qd x 1 day, then 1 po qd x 4 days AZITHROMYCIN 30874745631 No Longer Active Piotr Daley DO Active AZITHROMYCIN 250 MG TABS 2 po qd x 1 day, then 1 po qd x 4 days AZITHROMYCIN 59287946445 No Longer Active Piotr Daley DO Active LISINOPRIL-HYDROCHLOROTHIAZIDE 10-12.5 MG TABS 1 tab by mouth daily LISINOPRIL-HYDROCHLOROTHIAZIDE 72253885481 Active Hilary Ma MA Active LISINOPRIL 10 MG TABS 1/2-1 tab po every other day LISINOPRIL 40182745470 No Longer Active Piotr Daley DO Active VENTOLIN HFA 108 (90 BASE) MCG/ACT AERS 2 puffs four times a day PRN cough ALBUTEROL SULFATE 58503925886 No Longer Active Piotr Daley DO Active NYSTATIN-TRIAMCINOLONE 144333-7.1 UNIT/GM-% CREA Apply to area BID NYSTATIN-TRIAMCINOLONE 24566788097 No Longer Active Alena Chavira PUBLIC WORKS SUPERVISOR Active PHISOHEX 3 % LIQD Use Directed HEXACHLOROPHENE 99716142138 No Longer Active Sandra Waucoma Active AZITHROMYCIN 250 MG TABS 2 po qd x 1 day, then 1 po qd x 4 days AZITHROMYCIN 58657656212 No Longer Active Katrina Rinaldi MD PhD Active AZITHROMYCIN 250 MG TABS 2 po qd x 1 day, then 1 po qd x 4 days AZITHROMYCIN 93022404854 No Longer Active Piotr Daley DO Active AZITHROMYCIN 500 MG SOLR 1 po q day AZITHROMYCIN 71377380265 No Longer Active Piotr Daley DO Active NYSTATIN-TRIAMCINOLONE 491432-6.1 UNIT/GM-% CREA apply bid 08/19 NYSTATIN-TRIAMCINOLONE 67251779254 No Longer Active Piotr W Edi DO Active IBUPROFEN 800 MG TABS 1 po q 8 hours prn pain sparinly IBUPROFEN 75110778199 No Longer Active Piotr Daley DO Active VITAMIN D3 5000 UNIT CAPS 1 po daily CHOLECALCIFEROL 28452659710 Active Piotr Daley DO Active IBUPROFEN 800 MG TABS 1 po q 8 hours prn pain sparinly IBUPROFEN 800 MG TABS 319619 IBUPROFEN Inactive NYSTATIN-TRIAMCINOLONE 732262-1.1 UNIT/GM-% CREA apply bid 08/19 NYSTATIN-TRIAMCINOLONE 171169-2.1 UNIT/GM-% CREA 5648487 NYSTATIN- TRIAMCINOLONE Inactive AZITHROMYCIN 500 MG SOLR 1 po q day AZITHROMYCIN 500 MG SOLR 68991368969 AZITHROMYCIN Inactive VENTOLIN HFA 108 (90 BASE) MCG/ACT AERS 2 puffs four times a day PRN cough VENTOLIN HFA 108 (90 BASE) MCG/ACT AERS ALBUTEROL SULFATE Inactive LISINOPRIL 10 MG TABS 1/2-1 tab po every other day LISINOPRIL 10 MG TABS 273803 LISINOPRIL Inactive TUSSIONEX PENNKINETIC ER 10-8 MG/5ML LQCR 5ml po q12hr PRN Cough TUSSIONEX PENNKINETIC ER 10-8 MG/5ML LQCR HYDROCOD POLST- CHLORPHEN POLST Inactive PROMETHAZINE HCL 25 MG TABS 1 four times a day as needed for nausea/vomiting PROMETHAZINE HCL 25 MG TABS 699155 PROMETHAZINE HCL Inactive PREDNISONE 20 MG TAB 1 tablet twice daily for 2 days, then 1 tablet once daily for 2 days PREDNISONE 20 MG TAB 462140 PREDNISONE Inactive WARFARIN SODIUM 4 MG TABS 1 tab every evening WARFARIN SODIUM 4 MG TABS 952564 WARFARIN SODIUM Inactive LOMOTIL 2.5-0.025 MG TAB 1 to 2 four times a day as needed for diarrhea 10/13 LOMOTIL 2.5-0.025 MG TAB 8675952 DIPHENOXYLATE-ATROPINE Inactive IBUPROFEN 800 MG TABS 1 tab every 8 hours as needed IBUPROFEN 800 MG TABS 031720 IBUPROFEN Inactive PREDNISONE 20 MG TAB 2 tablets today, then 1 tablet days 2 through 4 PREDNISONE 20 MG TAB 625400 PREDNISONE Inactive AZITHROMYCIN 250 MG TABS 2 po qd x 1 day, then 1 po qd x 4 days AZITHROMYCIN 250 MG TABS 5883235 AZITHROMYCIN Inactive AZITHROMYCIN 250 MG TABS 2 po qd x 1 day, then 1 po qd x 4 days AZITHROMYCIN 250 MG TABS 7078637 AZITHROMYCIN Inactive NYSTATIN-TRIAMCINOLONE 164672-4.1 UNIT/GM-% CREA Apply to area BID NYSTATIN-TRIAMCINOLONE 669559-3.1 UNIT/GM-% CREA 3938962 NYSTATIN-TRIAMCINOLONE Inactive AZITHROMYCIN 250 MG TABS 2 po qd x 1 day, then 1 po qd x 4 days AZITHROMYCIN 250 MG TABS 6470253 AZITHROMYCIN Inactive AZITHROMYCIN 250 MG TABS 2 po qd x 1 day, then 1 po qd x 4 days AZITHROMYCIN 250 MG TABS 1223685 AZITHROMYCIN Inactive AZITHROMYCIN 250 MG TABS 2 po qd x 1 day, then 1 po qd x 4 days AZITHROMYCIN 250 MG TABS 8303019 AZITHROMYCIN Inactive Advance Directives Directive Description Start [...] mg/g mg/g{creat} 0-29 sodium, serum 140 mmol/L 401-556 2600/07/17 potassium, serum 4.2 mmol/L 3.5-5.2 chloride, serum [...] ratio (INR) 1.9 1.0-3.5 prothrombin time (patient) 16.5 SECS s [...] 5.0-8.5 Encounters Code Encounter Date Provider Facility CPT-16060 Level 3 Est. Patient 15:14:31 [employer] Piotr Daley [facility] CPT-38039 Level 3 Est. Patient 09:20:13 [employer] Piotr Daley [facility] CPT-13871 Level 3 Est. Patient 09:49:40 CDT Piotr Daley [facility] CPT-93857 Level 3 Est. Patient 16:28:11 CDT Piotr Daley [facility] CPT-70535 Level 3 Est. Patient 12:41:58 [employer] Piotr Daley [facility] CPT-39978 Level 3 Est. Patient 09:21:24 CDT Piotr Daley [facility] CPT-27450 Level 3 Est. Patient 09:21:11 CDT Piotr Daley [facility] CPT-47598 Level 3 Est. Patient 11:16:29 [employer] Piotr Daley [facility] CPT-41023 Level 3 Est. Patient 18:40:19 [employer] Piotr Daley [facility] CPT-09139 Level 3 Est. Patient 19:30:50 CDT Piotr Daley [facility] CPT-07275 Level 3 Est. Patient 22:06:44 CDT Katrina Rinaldi MD [facility] CPT-31093 Level 3 Est. Patient 14:20:00 CDT Piotr Daley [facility] CPT-83896 Level 3 Est. Patient 14:15:22 [employer] Piotr Daley [facility] CPT-67413 Level 3 Est. Patient 20:19:57 [employer] Piotr Daley [facility] CPT-63327 Level 3 Est. Patient 16:44:32 CDT Piotr Wilson [facility] CPT-58541 Level 3 Est. Patient 08:48:46 [employer] Piotr Daley [facility] CPT-76781 Level 3 Est. Patient 21:01:21 CDT Piotr Wilson [facility] Procedures Code Procedure Name Date Entry Date Standard Description CPT-37880 Thoracolumbar AP/Lat 15:19:19 [employer] CPT-G0438 Initial Annual Wellness Exam 12:18:54 [employer] CPT-74922 Knee 3V 09:57:38 CDT CPT-OV Office Visit 15:45:01 [employer] CPT-12227 Abd compl w upright 17:10:25 CDT
--- OUTSIDE RECORDS SUMMARY | 2018-07-18 08:13 | XMS REPORT | Clinical Summary ---
Author Author Admin, YONG Organization [facility] Address Unknown Phone Unavailable Allergies, Adverse [...] neoplasm of prostate V10.46 Active Alina Meyers PHOTOENGRAVING APPRENTICE Personal history of malignant neoplasm of prostate Coronary artery disease 414.00 Active Alina Meyers PHOTOENGRAVING APPRENTICE Coronary atherosclerosis of unspecified type of vessel, [place] or graft Back pain, thoracic region, left [...] po tid with ES Tylenol TRAMADOL HCL 38004970483 Active Piotr Daley DO Active WARFARIN SODIUM 5 MG TABS 1 tablet daily except for Saturday and Sat/2 tablet. WARFARIN SODIUM 32216564831 Active Piotr Daley DO Active PREDNISONE 20 MG TAB 2 tablets today, then 1 tablet days 2 through 4 PREDNISONE 06511067172 No Longer Active Piotr Daley DO Active AZITHROMYCIN 250 MG TABS 2 po qd x 1 day, then 1 po qd x 4 days AZITHROMYCIN 15328948991 No Longer Active Piotr Daley DO Active IBUPROFEN 800 MG TABS 1 tab every 8 hours as needed IBUPROFEN 99091363939 No Longer Active Piotr Daley DO Active LOMOTIL 2.5-0.025 MG TAB 1 to 2 four times a day as needed for diarrhea 10/13 DIPHENOXYLATE-ATROPINE 33251884976 No Longer Active Piotr Daley DO Active WARFARIN SODIUM 4 MG TABS 1 tab every evening WARFARIN SODIUM 84487420430 No Longer Active Piotr Daley DO Active PREDNISONE 20 MG TAB 1 tablet twice daily for 2 days, then 1 tablet once daily for 2 days PREDNISONE 24686786604 No Longer Active Piotr Daley DO Active PROMETHAZINE HCL 25 MG TABS 1 four times a day as needed for nausea/vomiting PROMETHAZINE HCL 85003192051 No Longer Active Piotr Daley DO Active TUSSIONEX PENNKINETIC ER 10-8 MG/5ML LQCR 5ml po q12hr PRN Cough HYDROCOD POLST-CHLORPHEN POLST 06970617893 No Longer Active Piotr Daley DO Active AZITHROMYCIN 250 MG TABS 2 po qd x 1 day, then 1 po qd x 4 days AZITHROMYCIN 20752684662 No Longer Active Piotr Daley DO Active AZITHROMYCIN 250 MG TABS 2 po qd x 1 day, then 1 po qd x 4 days AZITHROMYCIN 14483563338 No Longer Active Piotr Daley DO Active LISINOPRIL-HYDROCHLOROTHIAZIDE 10-12.5 MG TABS 1 tab by mouth daily LISINOPRIL-HYDROCHLOROTHIAZIDE 89368288337 Active Piotr Daley DO Active LISINOPRIL 10 MG TABS 1/2-1 tab po every other day LISINOPRIL 08771033773 No Longer Active Pitor Daley DO Active VENTOLIN HFA 108 (90 BASE) MCG/ACT AERS 2 puffs four times a day PRN cough ALBUTEROL SULFATE 68178774948 No Longer Active Piotr Daley DO Active NYSTATIN-TRIAMCINOLONE 388786-0.1 UNIT/GM-% CREA Apply to area BID NYSTATIN-TRIAMCINOLONE 01164525695 No Longer Active Alena Jarvis Fan PORTFOLIO MANAGER Active PHISOHEX 3 % LIQD Use Directed HEXACHLOROPHENE 66429625499 No Longer Active Sandra Wolsey Active AZITHROMYCIN 250 MG TABS 2 po qd x 1 day, then 1 po qd x 4 days AZITHROMYCIN 58827833641 No Longer Active Katrina Rinaldi MD PhD Active AZITHROMYCIN 250 MG TABS 2 po qd x 1 day, then 1 po qd x 4 days AZITHROMYCIN 32512226650 No Longer Active Piotr Daley DO Active AZITHROMYCIN 500 MG SOLR 1 po q day AZITHROMYCIN 26082759348 No Longer Active Piotr Daley DO Active NYSTATIN-TRIAMCINOLONE 808433-5.1 UNIT/GM-% CREA apply bid 08/19 NYSTATIN-TRIAMCINOLONE 82433299696 No Longer Active Piotr Daley DO Active IBUPROFEN 800 MG TABS 1 po q 8 hours prn pain sparinly IBUPROFEN 93275311995 No Longer Active Piotr Daley DO Active VITAMIN D3 5000 UNIT CAPS 1 po daily CHOLECALCIFEROL 01644617568 Active Piotr Daley DO Active IBUPROFEN 800 MG TABS 1 po q 8 hours prn pain sparinly IBUPROFEN 800 MG TABS IBUPROFEN Inactive NYSTATIN-TRIAMCINOLONE 293389-9.1 UNIT/GM-% CREA apply bid 08/19 NYSTATIN-TRIAMCINOLONE 615571-7.1 UNIT/GM-% CREA 9572483 NYSTATIN- TRIAMCINOLONE Inactive AZITHROMYCIN 500 MG SOLR 1 po q day AZITHROMYCIN 500 MG SOLR 042825 AZITHROMYCIN Inactive VENTOLIN HFA 108 (90 BASE) MCG/ACT AERS 2 puffs four times a day PRN cough VENTOLIN HFA 108 (90 BASE) MCG/ACT AERS ALBUTEROL SULFATE Inactive LISINOPRIL 10 MG TABS 1/2-1 tab po every other day LISINOPRIL 10 MG TABS 981176 LISINOPRIL Inactive TUSSIONEX PENNKINETIC ER 10-8 MG/5ML LQCR 5ml po q12hr PRN Cough TUSSIONEX PENNKINETIC ER 10-8 MG/5ML LQCR HYDROCOD POLST- CHLORPHEN POLST Inactive PROMETHAZINE HCL 25 MG TABS 1 four times a day as needed for nausea/vomiting PROMETHAZINE HCL 25 MG TABS 309818 PROMETHAZINE HCL Inactive PREDNISONE 20 MG TAB 1 tablet twice daily for 2 days, then 1 tablet once daily for 2 days PREDNISONE 20 MG TAB 649717 PREDNISONE Inactive WARFARIN SODIUM 4 MG TABS 1 tab every evening WARFARIN SODIUM 4 MG TABS 057067 WARFARIN SODIUM Inactive LOMOTIL 2.5-0.025 MG TAB 1 to 2 four times a day as needed for diarrhea 10/13 LOMOTIL 2.5-0.025 MG TAB 5043028 DIPHENOXYLATE-ATROPINE Inactive IBUPROFEN 800 MG TABS 1 tab every 8 hours as needed IBUPROFEN 800 MG TABS 625495 IBUPROFEN Inactive PREDNISONE 20 MG TAB 2 tablets today, then 1 tablet days 2 through 4 PREDNISONE 20 MG TAB 088693 PREDNISONE Inactive AZITHROMYCIN 250 MG TABS 2 po qd x 1 day, then 1 po qd x 4 days AZITHROMYCIN 250 MG TABS 0518640 AZITHROMYCIN Inactive AZITHROMYCIN 250 MG TABS 2 po qd x 1 day, then 1 po qd x 4 days AZITHROMYCIN 250 MG TABS 5369178 AZITHROMYCIN Inactive NYSTATIN-TRIAMCINOLONE 358816-8.1 UNIT/GM-% CREA Apply to area BID NYSTATIN-TRIAMCINOLONE 786429-0.1 UNIT/GM-% CREA 4012064 NYSTATIN-TRIAMCINOLONE Inactive AZITHROMYCIN 250 MG TABS 2 po qd x 1 day, then 1 po qd x 4 days AZITHROMYCIN 250 MG TABS 6918644 AZITHROMYCIN Inactive AZITHROMYCIN 250 MG TABS 2 po qd x 1 day, then 1 po qd x 4 days AZITHROMYCIN 250 MG TABS 9311245 AZITHROMYCIN Inactive AZITHROMYCIN 250 MG TABS 2 po qd x 1 day, then 1 po qd x 4 days AZITHROMYCIN 250 MG TABS 9983854 AZITHROMYCIN Inactive Advance Directives Directive Description Start [...] mg/g mg/g{creat} 0-29 sodium, serum 140 mmol/L 257-712 2472/07/17 potassium, serum 4.2 mmol/L 3.5-5.2 chloride, serum [...] 1.0-3.5 Encounters Code Encounter Date Provider Facility CPT-99016 Level 3 Est. Patient 15:14:31 [employer]ARD [employer] Piotr Daley DO [facility] CPT-32630 Level 3 Est. Patient 09:20:13 [employer] Piotr Daley [facility] CPT-09460 Level 3 Est. Patient 09:49:40 CDT Piotr Daley [facility] CPT-57474 Level 3 Est. Patient 16:28:11 CDT Piotr Daley [facility] CPT-68067 Level 3 Est. Patient 12:41:58 [employer]NER Piotr Daley [facility] CPT-44143 Level 3 Est. Patient 09:21:24 CDT Piotr Daley [facility] CPT-41183 Level 3 Est. Patient 09:21:11 CDT Piotr Daley [facility] CPT-18280 Level 3 Est. Patient 11:16:29 [employer]ARD [employer]NER Piotr Daley [facility] CPT-77776 Level 3 Est. Patient 18:40:19 [employer]ARD [employer]NER Piotr Daley [facility] CPT-79682 Level 3 Est. Patient 19:30:50 CDT Piotr Daley [facility] CPT-64612 Level 3 Est. Patient 22:06:44 CDT Katrina Rinaldi MD [facility] CPT-77502 Level 3 Est. Patient 14:20:00 CDT Piotr Wilson Edi [facility] CPT-28591 Level 3 Est. 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 Patient 20:19:57 BOARD [employer]NER Piotr Daley [facility] CPT-09194 Level 3 Est. Patient 16:44:32 CDT Piotr Daley [facility] CPT-15679 Level 3 Est. Patient 08:48:46 BOARD [employer]NER Piotr Katie Daley [facility] CPT-37355 Level 3 Est. Patient 21:01:21 CDT Piotr Wilson [facility] Procedures Code Procedure Name Date Entry Date Standard Description CPT-73546 Thoracolumbar AP/Lat 15:19:19 [employer] CPT-G0438 Initial Annual Wellness Exam 12:18:54 [employer] CPT-53960 Knee 3V 09:57:38 CDT CPT-OV Office Visit 15:45:01 [employer] CPT-20924 Abd compl w upright 17:10:25 CDT
--- OUTSIDE RECORDS SUMMARY | 2018-07-18 08:14 | XMS REPORT | Clinical Summary ---
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 FOREMAN Personal history of malignant neoplasm of prostate Coronary artery disease 414.00 Active Alina Luigi TEAM FOREMAN Coronary atherosclerosis of unspecified type of vessel, [place] or graft Back pain, thoracic region, [...] MG TABS 1 tablet daily WARFARIN SODIUM 12457829254 Active Simi Meyers Active TRAMADOL HCL 50 MG TABS 1 po tid with ES Tylenol TRAMADOL HCL 61596804268 Active Piotr Daley DO Active PREDNISONE 20 MG TAB 2 tablets today, then 1 tablet days 2 through 4 PREDNISONE 92747626761 No Longer Active Piotr Daley DO Active AZITHROMYCIN 250 MG TABS 2 po qd x 1 day, then 1 po qd x 4 days AZITHROMYCIN 41688976113 No Longer Active Piotr Daley DO Active IBUPROFEN 800 MG TABS 1 tab every 8 hours as needed IBUPROFEN 29384767729 No Longer Active Piotr Daley DO Active LOMOTIL 2.5-0.025 MG TAB 1 to 2 four times a day as needed for diarrhea 10/13 DIPHENOXYLATE-ATROPINE 50789789769 No Longer Active Piotr Daley DO Active WARFARIN SODIUM 4 MG TABS 1 tab every evening WARFARIN SODIUM 99328201245 No Longer Active Piotr Daley DO Active PREDNISONE 20 MG TAB 1 tablet twice daily for 2 days, then 1 tablet once daily for 2 days PREDNISONE 07873888882 No Longer Active Piotr Daley DO Active PROMETHAZINE HCL 25 MG TABS 1 four times a day as needed for nausea/vomiting PROMETHAZINE HCL 67299346109 No Longer Active Piotr Daley DO Active TUSSIONEX PENNKINETIC ER 10-8 MG/5ML LQCR 5ml po q12hr PRN Cough HYDROCOD POLST-CHLORPHEN POLST 66073928898 No Longer Active Piotr Daley DO Active AZITHROMYCIN 250 MG TABS 2 po qd x 1 day, then 1 po qd x 4 days AZITHROMYCIN 24927324763 No Longer Active Piotr Daley DO Active AZITHROMYCIN 250 MG TABS 2 po qd x 1 day, then 1 po qd x 4 days AZITHROMYCIN 42609247340 No Longer Active Piotr Daley DO Active LISINOPRIL-HYDROCHLOROTHIAZIDE 10-12.5 MG TABS 1 tab by mouth daily LISINOPRIL-HYDROCHLOROTHIAZIDE 20666702134 Active Hilary Ma MA Active LISINOPRIL 10 MG TABS 1/2-1 tab po every other day LISINOPRIL 55772352828 No Longer Active Piotr Daley DO Active VENTOLIN HFA 108 (90 BASE) MCG/ACT AERS 2 puffs four times a day PRN cough ALBUTEROL SULFATE 57029630119 No Longer Active Piotr Daley DO Active NYSTATIN-TRIAMCINOLONE 474814-7.1 UNIT/GM-% CREA Apply to area BID NYSTATIN-TRIAMCINOLONE 35397271070 No Longer Active Alena Oswaldum [employer] Active PHISOHEX 3 % LIQD Use Directed HEXACHLOROPHENE 10489201583 No Longer Active Sandra Breckenridge Active AZITHROMYCIN 250 MG TABS 2 po qd x 1 day, then 1 po qd x 4 days AZITHROMYCIN 98427433863 No Longer Active Katrina Rinaldi MD PhD Active AZITHROMYCIN 250 MG TABS 2 po qd x 1 day, then 1 po qd x 4 days AZITHROMYCIN 49311386611 No Longer Active Piotr Daley DO Active AZITHROMYCIN 500 MG SOLR 1 po q day AZITHROMYCIN 81273085610 No Longer Active Piotr Daley DO Active NYSTATIN-TRIAMCINOLONE 656204-8.1 UNIT/GM-% CREA apply bid 08/19 NYSTATIN-TRIAMCINOLONE 37758831815 No Longer Active Piotr Daley DO Active IBUPROFEN 800 MG TABS 1 po q 8 hours prn pain sparinly IBUPROFEN 73578288799 No Longer Active Piotr Daley DO Active VITAMIN D3 5000 UNIT CAPS 1 po daily CHOLECALCIFEROL 41994958409 Active Piotr Daley DO Active IBUPROFEN 800 MG TABS 1 po q 8 hours prn pain sparinly IBUPROFEN 800 MG TABS 879834 IBUPROFEN Inactive NYSTATIN-TRIAMCINOLONE 171990-7.1 UNIT/GM-% CREA apply bid 08/19 NYSTATIN-TRIAMCINOLONE 044464-9.1 UNIT/GM-% CREA 6142702 NYSTATIN- TRIAMCINOLONE Inactive AZITHROMYCIN 500 MG SOLR 1 po q day AZITHROMYCIN 500 MG SOLR 32128517339 AZITHROMYCIN Inactive VENTOLIN HFA 108 (90 BASE) MCG/ACT AERS 2 puffs four times a day PRN cough VENTOLIN HFA 108 (90 BASE) MCG/ACT AERS ALBUTEROL SULFATE Inactive LISINOPRIL 10 MG TABS 1/2-1 tab po every other day LISINOPRIL 10 MG TABS 990217 LISINOPRIL Inactive TUSSIONEX PENNKINETIC ER 10-8 MG/5ML LQCR 5ml po q12hr PRN Cough TUSSIONEX PENNKINETIC ER 10-8 MG/5ML LQCR HYDROCOD POLST- CHLORPHEN POLST Inactive PROMETHAZINE HCL 25 MG TABS 1 four times a day as needed for nausea/vomiting PROMETHAZINE HCL 25 MG TABS 140125 PROMETHAZINE HCL Inactive PREDNISONE 20 MG TAB 1 tablet twice daily for 2 days, then 1 tablet once daily for 2 days PREDNISONE 20 MG TAB 644340 PREDNISONE Inactive WARFARIN SODIUM 4 MG TABS 1 tab every evening WARFARIN SODIUM 4 MG TABS 340615 WARFARIN SODIUM Inactive LOMOTIL 2.5-0.025 MG TAB 1 to 2 four times a day as needed for diarrhea 10/13 LOMOTIL 2.5-0.025 MG TAB 6835188 DIPHENOXYLATE-ATROPINE Inactive IBUPROFEN 800 MG TABS 1 tab every 8 hours as needed IBUPROFEN 800 MG TABS 303425 IBUPROFEN Inactive PREDNISONE 20 MG TAB 2 tablets today, then 1 tablet days 2 through 4 PREDNISONE 20 MG TAB 761649 PREDNISONE Inactive AZITHROMYCIN 250 MG TABS 2 po qd x 1 day, then 1 po qd x 4 days AZITHROMYCIN 250 MG TABS 0375521 AZITHROMYCIN Inactive AZITHROMYCIN 250 MG TABS 2 po qd x 1 day, then 1 po qd x 4 days AZITHROMYCIN 250 MG TABS 5904579 AZITHROMYCIN Inactive NYSTATIN-TRIAMCINOLONE 620867-9.1 UNIT/GM-% CREA Apply to area BID NYSTATIN-TRIAMCINOLONE 271425-4.1 UNIT/GM-% CREA 7523745 NYSTATIN-TRIAMCINOLONE Inactive AZITHROMYCIN 250 MG TABS 2 po qd x 1 day, then 1 po qd x 4 days AZITHROMYCIN 250 MG TABS 8074762 AZITHROMYCIN Inactive AZITHROMYCIN 250 MG TABS 2 po qd x 1 day, then 1 po qd x 4 days AZITHROMYCIN 250 MG TABS 3397181 AZITHROMYCIN Inactive AZITHROMYCIN 250 MG TABS 2 po qd x 1 day, then 1 po qd x 4 days AZITHROMYCIN 250 MG TABS 7320238 AZITHROMYCIN Inactive Advance Directives Directive Description Start [...] Panel - Chemistry sodium, serum 141 mmol/L 423-219 1840/06/28 carbon dioxide, venous blood 31.0 mmol/L 21.0-32.0 [...] Negative Encounters Code Encounter Date Provider Facility CPT-08306 Level 3 Est. Patient 15:14:31 VOCATIONAL REHABILITATION SPECIALIST Piotr Katie Edi [facility] CPT-85809 Level 3 Est. Patient 09:20:13 VOCATIONAL REHABILITATION SPECIALIST Piotr Katie Daley [facility] CPT-42238 Level 3 Est. Patient 09:49:40 CDT Piotr Daley [facility] CPT-66539 Level 3 Est. Patient 16:28:11 CDT Piotr Wilson Edi [facility] CPT-43751 Level 3 Est. Patient 12:41:58 VOCATIONAL REHABILITATION SPECIALIST Piotr Katie Daley [facility] CPT-65396 Level 3 Est. Patient 09:21:24 CDT Piotr Daley [facility] CPT-97460 Level 3 Est. Patient 09:21:11 CDT Piotr Wilson Edi [facility] CPT-95804 Level 3 Est. Patient 11:16:29 VOCATIONAL REHABILITATION SPECIALIST Piotr Wilson Edi [facility] CPT-63176 Level 3 Est. Patient 18:40:19 VOCATIONAL REHABILITATION SPECIALIST Piotr Katie Daley [facility] CPT-40272 Level 3 Est. Patient 19:30:50 CDT Piotr Katie Daley [facility] CPT-78584 Level 3 Est. Patient 22:06:44 CDT Katrina Rinaldi MD PhD [facility] CPT-08285 Level 3 Est. Patient 14:20:00 CDT Piotr Daley [facility] CPT-97354 Level 3 Est. Patient 14:15:22 VOCATIONAL REHABILITATION SPECIALIST Piotr Daley [facility] CPT-55061 Level 3 Est. Patient 20:19:57 VOCATIONAL REHABILITATION SPECIALIST Piotr Daley [facility] CPT-01637 Level 3 Est. Patient 16:44:32 CDT Piotr Wilson [facility] CPT-65691 Level 3 Est. Patient 08:48:46 VOCATIONAL REHABILITATION SPECIALIST Piotr W Edi DO [facility] CPT-53816 Level 3 Est. Patient 21:01:21 CDT Piotr Daley [facility] Procedures Code Procedure Name Date Entry Date Standard Description CPT-19700 PT/INR - LAB USE ONLY 13:49:20 CDT CPT-00359 Venipuncture Draw Fee 13:49:19 CDT CPT-98753 PT/INR - LAB USE ONLY 15:48:49 CDT CPT-17167 Venipuncture Draw Fee 15:48:49 CDT CPT-59966 Venipuncture Draw Fee 11:31:59 CDT CPT-21383 PT/INR - LAB USE ONLY 11:31:59 CDT CPT-12954 Venipuncture Draw Fee 13:29:15 CDT CPT-07370 Thoracolumbar AP/Lat 15:19:19 VOCATIONAL REHABILITATION SPECIALIST CPT-G0438 Initial Annual Wellness Exam 12:18:54 VOCATIONAL REHABILITATION SPECIALIST CPT-46517 Knee 3V 09:57:38 CDT CPT-OV Office Visit 15:45:01 VOCATIONAL REHABILITATION SPECIALIST CPT-50930 Abd compl w upright 17:10:25 CDT
--- OUTSIDE RECORDS SUMMARY | 2018-07-18 08:15 | XMS REPORT | Clinical Summary ---
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 Personal history of malignant neoplasm of prostate Coronary artery disease 414.00 Active Alina Meyers APRN Coronary atherosclerosis of unspecified type of vessel, [place] or graft Back pain, thoracic region, left [...] Knee pain, left ICD-719.46 Inactive Sirisha Chen OBSTETRICAL ANESTHESIOLOGIST Actinic keratoses ICD-702.0 Inactive Sirisha Chen OBSTETRICAL ANESTHESIOLOGIST Back pain, thoracic region, left ICD-724.1 Inactive Piotr Daley DO Thoracic back pain ICD-724.5 Inactive Sirisha Chen OBSTETRICAL ANESTHESIOLOGIST Back pain lumbar ICD-724.2 Inactive Sirisha Chen OBSTETRICAL ANESTHESIOLOGIST Insect bite ICD-919.4 Inactive Sirisha Chen OBSTETRICAL ANESTHESIOLOGIST Pruritus ICD-698.9 Inactive Sirisha Chen OBSTETRICAL ANESTHESIOLOGIST 04/09 Bronchitis-Acute ICD-466.0 Inactive Sirisha Chen OBSTETRICAL ANESTHESIOLOGIST Dyspnea ICD-786.09 Inactive Sirisha Chen OBSTETRICAL ANESTHESIOLOGIST 05/09 Medication List Medication Instructions Start Date Stop Date Generic Name NDC Status Provider Patient Instruction WARFARIN SODIUM 4 MG ORAL TABLET 1 tablet by mouth daily except 2mg on Saturday and Saturday WARFARIN SODIUM 08441161689 Active Anahy Loja Active MELOXICAM 15 MG ORAL TABLET 1 po q day for pain with food MELOXICAM 95338934515 Active Piotr Daley DO Active PREDNISONE 10 MG ORAL TABLET 1 tablet by mouth daily PREDNISONE 35676918969 No Longer Active Emelyn Norris Active TESSALON PERLES 100 MG ORAL CAPSULE 1-2 tablet by mouth 3 times daily 04/16 BENZONATATE 00860372108 No Longer Active Emelyn Norris Active PREDNISONE 20 MG ORAL TABLET two tabs by mouth today, then one tab by mouth days two and three PREDNISONE 08828206894 No Longer Active Piotr Daley DO Active CYCLOBENZAPRINE HCL 10 MG ORAL TABLET 1 tablet by mouth three times daily as needed for muscle spasm/pain CYCLOBENZAPRINE HCL 72681006154 Active Sirisha Chen LPN Active ZITHROMAX 250 MG ORAL TABLET Take two (2 ) tablets day one, then one (1) tablet a day for four (4) more days AZITHROMYCIN 01988850516 No Longer Active Piotr Daley DO Active PROAIR HFA 108 (90 BASE) MCG/ACT INHALATION AEROSOL SOLUTION 1-2 puffs four times a day as needed ALBUTEROL SULFATE 20042533579 No Longer Active Emelyn Norris Active DOXYCYCLINE HYCLATE 100 MG ORAL CAPSULE 1 cap by mouth BID x10 days DOXYCYCLINE HYCLATE 32536009028 No Longer Active Nella Harris APRN Active PREDNISONE 20 MG ORAL TABLET 2 tabs daily for 3 days, 1 tab daily for 3 days, 1/2 tab daily for 2 days PREDNISONE 20997756335 No Longer Active Matthew Rangel MD Active TRAMADOL HCL 50 MG ORAL TABLET 1 po tid with ES Tylenol TRAMADOL HCL 89524668510 No Longer Active Matthew Rangel MD Active GABAPENTIN 300 MG ORAL CAPSULE 1 po q hs for nerve pain GABAPENTIN 93525682391 No Longer Active Matthew Rangel MD Active PREDNISONE 20 MG ORAL TABLET 2 tablets today, then 1 tablet days 2 through 4 PREDNISONE 21784118286 No Longer Active Piotr Daley DO Active AZITHROMYCIN 250 MG ORAL TABLET 2 po qd x 1 day, then 1 po qd x 4 days 07/12 AZITHROMYCIN 24442123935 No Longer Active Piotr Daley DO Active IBUPROFEN 800 MG ORAL TABLET 1 tab every 8 hours as needed 07/12 IBUPROFEN 06109904552 No Longer Active Piotr Daley DO Active LOMOTIL 2.5-0.025 MG ORAL TABLET 1 to 2 four times a day as needed for diarrhea DIPHENOXYLATE-ATROPINE 58728895546 No Longer Active Piotr Daley DO Active WARFARIN SODIUM 4 MG ORAL TABLET 1 tab every evening WARFARIN SODIUM 24003923345 No Longer Active Piotr Daley DO Active PREDNISONE 20 MG ORAL TABLET 1 tablet twice daily for 2 days, then 1 tablet once daily for 2 days PREDNISONE 40006038608 No Longer Active Piotr Daley DO Active PROMETHAZINE HCL 25 MG ORAL TABLET 1 four times a day as needed for nausea/ vomiting PROMETHAZINE HCL 53517586490 No Longer Active Piotr Daley DO Active TUSSIONEX PENNKINETIC ER 10-8 MG/5ML ORAL SUSPENSION EXTENDED RELEASE 5ml po q12hr PRN Cough HYDROCOD POLST-CHLORPHEN POLST 25237205598 No Longer Active Piotr Daley DO Active AZITHROMYCIN 250 MG ORAL TABLET 2 po qd x 1 day, then 1 po qd x 4 days 10/13 AZITHROMYCIN 77814808911 No Longer Active Piotr Daley DO Active AZITHROMYCIN 250 MG ORAL TABLET 2 po qd x 1 day, then 1 po qd x 4 days 05/07 AZITHROMYCIN 98869331867 No Longer Active Piotr Daley DO Active LISINOPRIL-HYDROCHLOROTHIAZIDE 10-12.5 MG ORAL TABLET 1 tab by mouth daily LISINOPRIL-HYDROCHLOROTHIAZIDE 25140187275 Active Piotr Daley DO Active LISINOPRIL 10 MG ORAL TABLET 1/2-1 tab po every other day LISINOPRIL 19782970356 No Longer Active Piotr Daley DO Active VENTOLIN HFA 108 (90 Base) MCG/ACT INHALATION AEROSOL SOLUTION 2 puffs four times a day PRN cough ALBUTEROL SULFATE 36739751433 No Longer Active Piotr Daley DO Active NYSTATIN-TRIAMCINOLONE 730722-0.1 UNIT/GM-% EXTERNAL CREAM Apply to area BID NYSTATIN-TRIAMCINOLONE 41394277911 No Longer Active Alena Chavira OBSTETRICAL ANESTHESIOLOGIST Active PHISOHEX 3 % LIQD Use Directed HEXACHLOROPHENE 93815494731 No Longer Active Sandra [place] Active AZITHROMYCIN 250 MG ORAL TABLET 2 po qd x 1 day, then 1 po qd x 4 days 10/21 AZITHROMYCIN 27180646923 No Longer Active Katrina Rinaldi MD PhD Active AZITHROMYCIN 250 MG ORAL TABLET 2 po qd x 1 day, then 1 po qd x 4 days 10/16 AZITHROMYCIN 34072115801 No Longer Active Piotr Daley DO Active AZITHROMYCIN 500 MG INTRAVENOUS SOLUTION RECONSTITUTED 1 po q day AZITHROMYCIN 62434901583 No Longer Active Piotr Daley DO Active NYSTATIN-TRIAMCINOLONE 360354-7.1 UNIT/GM-% EXTERNAL CREAM apply bid NYSTATIN-TRIAMCINOLONE 85032396835 No Longer Active Piotr Daley DO Active IBUPROFEN 800 MG ORAL TABLET 1 po q 8 hours prn pain sparinly IBUPROFEN 56715777834 No Longer Active Piotr Daley DO Active VITAMIN D3 5000 UNIT ORAL CAPSULE 1 po daily CHOLECALCIFEROL 91164938863 Active Piotr Daley DO Active IBUPROFEN 800 MG ORAL TABLET 1 po q 8 hours prn pain sparinly IBUPROFEN 800 MG ORAL TABLET 437751 IBUPROFEN Inactive NYSTATIN-TRIAMCINOLONE 374637-9.1 UNIT/GM-% EXTERNAL CREAM apply bid NYSTATIN-TRIAMCINOLONE 621530-4.1 UNIT/GM-% EXTERNAL CREAM 2130135 NYSTATIN-TRIAMCINOLONE Inactive AZITHROMYCIN 500 MG INTRAVENOUS SOLUTION RECONSTITUTED 1 po q day AZITHROMYCIN 500 MG INTRAVENOUS SOLUTION RECONSTITUTED 38191411324 AZITHROMYCIN Inactive VENTOLIN HFA 108 (90 Base) MCG/ACT INHALATION AEROSOL SOLUTION 2 puffs four times a day PRN cough VENTOLIN HFA 108 (90 Base) MCG/ ACT INHALATION AEROSOL SOLUTION ALBUTEROL SULFATE Inactive LISINOPRIL 10 MG ORAL TABLET 1/2-1 tab po every other day LISINOPRIL 10 MG ORAL TABLET 325810 LISINOPRIL Inactive TUSSIONEX PENNKINETIC ER 10-8 MG/5ML ORAL SUSPENSION EXTENDED RELEASE 5ml po q12hr PRN Cough TUSSIONEX PENNKINETIC ER 10-8 MG/5ML ORAL SUSPENSION EXTENDED RELEASE HYDROCOD POLST-CHLORPHEN POLST Inactive PROMETHAZINE HCL 25 MG ORAL TABLET 1 four times a day as needed for nausea/ vomiting PROMETHAZINE HCL 25 MG ORAL TABLET 062258 PROMETHAZINE HCL Inactive PREDNISONE 20 MG ORAL TABLET 1 tablet twice daily for 2 days, then 1 tablet once daily for 2 days PREDNISONE 20 MG ORAL TABLET 297103 PREDNISONE Inactive WARFARIN SODIUM 4 MG ORAL TABLET 1 tab every evening WARFARIN SODIUM 4 MG ORAL TABLET 016961 WARFARIN SODIUM Inactive LOMOTIL 2.5-0.025 MG ORAL TABLET 1 to 2 four times a day as needed for diarrhea LOMOTIL 2.5-0.025 MG ORAL TABLET 0353895 DIPHENOXYLATE-ATROPINE Inactive IBUPROFEN 800 MG ORAL TABLET 1 tab every 8 hours as needed 07/12 IBUPROFEN 800 MG ORAL TABLET 369824 IBUPROFEN Inactive PREDNISONE 20 MG ORAL TABLET 2 tablets today, then 1 tablet days 2 through 4 PREDNISONE 20 MG ORAL TABLET 457309 PREDNISONE Inactive GABAPENTIN 300 MG ORAL CAPSULE 1 po q hs for nerve pain GABAPENTIN 300 MG ORAL CAPSULE 505275 GABAPENTIN Inactive TRAMADOL HCL 50 MG ORAL TABLET 1 po tid with ES Tylenol TRAMADOL HCL 50 MG ORAL TABLET 958182 TRAMADOL HCL Inactive PROAIR HFA 108 (90 BASE) MCG/ACT INHALATION AEROSOL SOLUTION 1-2 puffs four times a day as needed PROAIR HFA 108 (90 BASE) MCG/ACT INHALATION AEROSOL SOLUTION ALBUTEROL SULFATE Inactive PREDNISONE 20 MG ORAL TABLET two tabs by mouth today, then one tab by mouth days two and three PREDNISONE 20 MG ORAL TABLET 588559 PREDNISONE Inactive TESSALON PERLES 100 MG ORAL CAPSULE 1-2 tablet by mouth 3 times daily 04/16 TESSALON PERLES 100 MG ORAL CAPSULE 775234 BENZONATATE Inactive PREDNISONE 10 MG ORAL TABLET 1 tablet by mouth daily PREDNISONE 10 MG ORAL TABLET 690392 PREDNISONE Inactive AZITHROMYCIN 250 MG ORAL TABLET 2 po qd x 1 day, then 1 po qd x 4 days 10/16 AZITHROMYCIN 250 MG ORAL TABLET 743229 AZITHROMYCIN Inactive AZITHROMYCIN 250 MG ORAL TABLET 2 po qd x 1 day, then 1 po qd x 4 days 10/21 AZITHROMYCIN 250 MG ORAL TABLET 837357 AZITHROMYCIN Inactive NYSTATIN-TRIAMCINOLONE 195528-9.1 UNIT/GM-% EXTERNAL CREAM Apply to area BID NYSTATIN-TRIAMCINOLONE 648750-2.1 UNIT/GM-% EXTERNAL CREAM 3710652 NYSTATIN-TRIAMCINOLONE Inactive AZITHROMYCIN 250 MG ORAL TABLET 2 po qd x 1 day, then 1 po qd x 4 days 05/07 AZITHROMYCIN 250 MG ORAL TABLET 529011 AZITHROMYCIN Inactive AZITHROMYCIN 250 MG ORAL TABLET 2 po qd x 1 day, then 1 po qd x 4 days 10/13 AZITHROMYCIN 250 MG ORAL TABLET 252038 AZITHROMYCIN Inactive AZITHROMYCIN 250 MG ORAL TABLET 2 po qd x 1 day, then 1 po qd x 4 days 07/12 AZITHROMYCIN 250 MG ORAL TABLET 099947 AZITHROMYCIN Inactive PREDNISONE 20 MG ORAL TABLET 2 tabs daily for 3 days, 1 tab daily for 3 days, 1/2 tab daily for 2 days PREDNISONE 20 MG ORAL TABLET 084783 PREDNISONE Inactive DOXYCYCLINE HYCLATE 100 MG ORAL CAPSULE 1 cap by mouth BID x10 days DOXYCYCLINE HYCLATE 100 MG ORAL CAPSULE 7248702 DOXYCYCLINE HYCLATE Inactive ZITHROMAX 250 MG ORAL TABLET Take two (2 ) tablets day one, then one (1) tablet a day for four (4) more days ZITHROMAX 250 MG ORAL TABLET 978810 AZITHROMYCIN Inactive Advance Directives Directive Description Start [...] % 11.0-15.0 platelet count 172 THOUSAND/UL 10*3/mm3 350-447 6971/04/12 mean platelet volume 8.6 fL 7.5-12.5 Lab Report: Prothrombin Time Hemochron - Coagulation prothrombin time (patient) 33.0 SECS s 18.9-24.9 Encounters Code Encounter Date Provider Facility CPT-92603 Level 3 Est. Patient 15:59:25 FLOOR GRINDER Piotr Daley [facility] CPT-07572 Level 3 Est. Patient 12:33:59 FLOOR GRINDER Piotr Daley [facility] CPT-86598 Level 3 Est. Patient 15:56:17 FLOOR GRINDER Piotr Daley [facility] CPT-41806 Level 3 Est. Patient 10:34:54 FLOOR GRINDER Piotr Daley [facility] CPT-81916 Level 3 Est. Patient 17:10:19 CDT Nella Harris APRN [facility] CPT-95402 Level 3 Est. Patient 10:48:17 FLOOR GRINDER Matthew Rangel MD [facility] CPT-08052 Level 4 Est. Patient 17:15:07 FLOOR GRINDER Piotr Daley [facility] CPT-27787 Level 3 Est. Patient 12:46:13 FLOOR GRINDER Piotr Daley [facility] CPT-30165 Level 3 Est. Patient 15:14:31 FLOOR GRINDER Piotr Daley [facility] CPT-71052 Level 3 Est. Patient 09:20:13 FLOOR GRINDER Piotr Daley [facility] CPT-43888 Level 3 Est. Patient 09:49:40 CDT Piotr Daley [facility] CPT-41313 Level 3 Est. Patient 16:28:11 CDT Piotr Daley [facility] CPT-62053 Level 3 Est. Patient 12:41:58 FLOOR GRINDER Piotr Daley [facility] CPT-66075 Level 3 Est. Patient 09:21:24 CDT Piotr Daley [facility] CPT-07522 Level 3 Est. Patient 09:21:11 CDT Piotr Daley [facility] CPT-28994 Level 3 Est. Patient 11:16:29 FLOOR GRINDER Piotr Daley [facility] CPT-59864 Level 3 Est. Patient 18:40:19 FLOOR GRINDER Piotr Daley [facility] CPT-01792 Level 3 Est. Patient 19:30:50 CDT Piotr Daley [facility] CPT-60320 Level 3 Est. Patient 22:06:44 CDT Katrina Rinaldi MD [facility] CPT-62501 Level 3 Est. Patient 14:20:00 CDT Piotr Daley [facility] CPT-55416 Level 3 Est. Patient 14:15:22 FLOOR GRINDER Piotr Daley [facility] CPT-67830 Level 3 Est. Patient 20:19:57 FLOOR GRINDER Piotr Daley [facility] CPT-74324 Level 3 Est. Patient 16:44:32 CDT Piotr Daley [facility] CPT-80887 Level 3 Est. Patient 08:48:46 FLOOR GRINDER Piotr Daley [facility] CPT-05037 Level 3 Est. Patient 21:01:21 CDT Piotr Daley DO [facility] Procedures Code Procedure Name Date Entry Date Standard Description CPT-56971 Sacroiliac jt < 3V - XRAY USE ONLY 16:45:19 FLOOR GRINDER 05/09 CPT-08964 LS spine comp w obliques - XRAY USE ONLY 14:52:26 FLOOR GRINDER CPT-77409 Chest, 2 views 12:55:58 FLOOR GRINDER CPT-G0439 Subsequent Annual Wellness Exam 10:34:52 FLOOR GRINDER CPT-51115 BMP - LAB USE ONLY 17:19:11 FLOOR GRINDER CPT-81536 PT/INR - LAB USE ONLY 17:19:10 FLOOR GRINDER CPT-03359 Venipuncture Draw Fee 17:19:10 FLOOR GRINDER CPT-78164 PT/INR - LAB USE ONLY 08:12:25 FLOOR GRINDER CPT-55992 Venipuncture Draw Fee 08:12:24 FLOOR GRINDER CPT-95638 Venipuncture Draw Fee 11:31:07 FLOOR GRINDER CPT-41369 TPSA - LAB USE ONLY 11:31:07 FLOOR GRINDER CPT-81820 PT/INR - LAB USE ONLY 11:31:07 FLOOR GRINDER CPT-G0439 Subsequent Annual Wellness Exam 09:59:29 FLOOR GRINDER CPT-80968 Creatinine - LAB USE ONLY 14:37:55 FLOOR GRINDER CPT-64363 PT/INR - LAB USE ONLY 14:37:55 FLOOR GRINDER CPT-92040 Venipuncture Draw Fee 14:37:55 FLOOR GRINDER CPT-53795 LS spine comp w obliques - XRAY USE ONLY 12:59:25 FLOOR GRINDER CPT-19237 PT/INR - LAB USE ONLY 13:49:20 CDT CPT-13132 Venipuncture Draw Fee 13:49:19 CDT CPT-58872 PT/INR - LAB USE ONLY 15:48:49 CDT CPT-72011 Venipuncture Draw Fee 15:48:49 CDT CPT-22933 Venipuncture Draw Fee 11:31:59 CDT CPT-62216 PT/INR - LAB USE ONLY 11:31:59 CDT CPT-05133 Venipuncture Draw Fee 13:29:15 CDT CPT-41723 Thoracolumbar AP/Lat 15:19:19 FLOOR GRINDER CPT-G0438 Initial Annual Wellness Exam 12:18:54 FLOOR GRINDER CPT-98922 Knee 3V 09:57:38 CDT CPT-OV Office Visit 15:45:01 FLOOR GRINDER CPT-03213 Abd compl w upright 17:10:25 CDT
--- OUTSIDE RECORDS SUMMARY | 2018-07-18 08:16 | XMS REPORT | Clinical Summary ---
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[employer] Personal history of malignant neoplasm of prostate Coronary artery disease 414.00 Active Alina Luigi [facility] Coronary atherosclerosis of unspecified type of vessel, [place] or graft Back pain, thoracic region, left 724.1 Inactive Piotr Daley DO Pain in thoracic spine Thoracic back pain 724.5 Active Piotr Wilson Edi DO Backache, unspecified Back pain lumbar 724.2 Active Piotr Daley DO Lumbago Peripheral neuropathy, lower extremity, left 356.9 Active 02/19 Piotr W Edi DO Unspecified hereditary and idiopathic peripheral neuropathy Insect bite 919.4 Active Nella Harris [employer] Insect bite, nonvenomous, of other, multiple, and unspecified sites, without mention of infection Pruritus 698.9 Active Nella Harris [employer] Unspecified pruritic disorder FLANK PAIN, RIGHT ICD-789.09 [...] mouth BID x10 days 10/01 DOXYCYCLINE HYCLATE 75923802882 No Longer Active Nella Harris APRN Active WARFARIN SODIUM 5 MG TABS 1 tablet daily M-S, 1/2 tab on Heart WARFARIN SODIUM 10025002685 Active Catalina Freitas Active PROAIR HFA 108 (90 BASE) MCG/ACT AERS 1-2 puffs four times a day as needed ALBUTEROL SULFATE 72477734412 Active Matthew Rangel MD Active PREDNISONE 20 MG TAB 2 tabs daily for 3 days, 1 tab daily for 3 days, 1/2 tab daily for 2 days PREDNISONE 15064839749 No Longer Active Matthew Rangel MD Active TRAMADOL HCL 50 MG TABS 1 po tid with ES Tylenol TRAMADOL HCL 98841858651 No Longer Active Matthew Rangel MD Active GABAPENTIN 300 MG CAPS 1 po q hs for nerve pain GABAPENTIN 19791259330 No Longer Active Matthew Rangel MD Active PREDNISONE 20 MG TAB 2 tablets today, then 1 tablet days 2 through 4 PREDNISONE 17464509054 No Longer Active Piotr Daley DO Active AZITHROMYCIN 250 MG TABS 2 po qd x 1 day, then 1 po qd x 4 days AZITHROMYCIN 47131114860 No Longer Active Piotr Daley DO Active IBUPROFEN 800 MG TABS 1 tab every 8 hours as needed IBUPROFEN 49194116013 No Longer Active Piotr Daley DO Active LOMOTIL 2.5-0.025 MG TAB 1 to 2 four times a day as needed for diarrhea 10/13 DIPHENOXYLATE-ATROPINE 26013072023 No Longer Active Piotr Daley DO Active WARFARIN SODIUM 4 MG TABS 1 tab every evening WARFARIN SODIUM 67626393674 No Longer Active Piotr Daley DO Active PREDNISONE 20 MG TAB 1 tablet twice daily for 2 days, then 1 tablet once daily for 2 days PREDNISONE 90872737632 No Longer Active Piotr Daley DO Active PROMETHAZINE HCL 25 MG TABS 1 four times a day as needed for nausea/vomiting PROMETHAZINE HCL 51800531484 No Longer Active Piotr Daley DO Active TUSSIONEX PENNKINETIC ER 10-8 MG/5ML LQCR 5ml po q12hr PRN Cough HYDROCOD POLST-CHLORPHEN POLST 68210326728 No Longer Active Piotr Daley DO Active AZITHROMYCIN 250 MG TABS 2 po qd x 1 day, then 1 po qd x 4 days AZITHROMYCIN 67461428919 No Longer Active Piotr Daley DO Active AZITHROMYCIN 250 MG TABS 2 po qd x 1 day, then 1 po qd x 4 days AZITHROMYCIN 01262521156 No Longer Active Piotr Daley DO Active LISINOPRIL-HYDROCHLOROTHIAZIDE 10-12.5 MG TABS 1 tab by mouth daily LISINOPRIL-HYDROCHLOROTHIAZIDE 38640347573 Active Catalina Freitas Active LISINOPRIL 10 MG TABS 1/2-1 tab po every other day LISINOPRIL 57817924175 No Longer Active Piotr W Edi DO Active VENTOLIN HFA 108 (90 BASE) MCG/ACT AERS 2 puffs four times a day PRN cough ALBUTEROL SULFATE 62380831694 No Longer Active Piotr Daley DO Active NYSTATIN-TRIAMCINOLONE 422955-2.1 UNIT/GM-% CREA Apply to area BID NYSTATIN-TRIAMCINOLONE 18237557154 No Longer Active Alena Oswaldum TABLEAU ARCHITECT Active PHISOHEX 3 % LIQD Use Directed HEXACHLOROPHENE 87483601868 No Longer Active Sandra Greenfield Active AZITHROMYCIN 250 MG TABS 2 po qd x 1 day, then 1 po qd x 4 days AZITHROMYCIN 53839138498 No Longer Active Katrina Rinaldi MD PhD Active AZITHROMYCIN 250 MG TABS 2 po qd x 1 day, then 1 po qd x 4 days AZITHROMYCIN 06501887201 No Longer Active Piotr Daley DO Active AZITHROMYCIN 500 MG SOLR 1 po q day AZITHROMYCIN 01384990599 No Longer Active Piotr Daley DO Active NYSTATIN-TRIAMCINOLONE 325788-6.1 UNIT/GM-% CREA apply bid 08/19 NYSTATIN-TRIAMCINOLONE 11360511536 No Longer Active Piotr Daley DO Active IBUPROFEN 800 MG TABS 1 po q 8 hours prn pain sparinly IBUPROFEN 64754819325 No Longer Active Piotr Daley DO Active VITAMIN D3 5000 UNIT CAPS 1 po daily CHOLECALCIFEROL 90075372101 Active Piotr Daley DO Active IBUPROFEN 800 MG TABS 1 po q 8 hours prn pain sparinly IBUPROFEN 800 MG TABS 356480 IBUPROFEN Inactive NYSTATIN-TRIAMCINOLONE 550139-2.1 UNIT/GM-% CREA apply bid 08/19 NYSTATIN-TRIAMCINOLONE 989959-0.1 UNIT/GM-% CREA 3035135 NYSTATIN- TRIAMCINOLONE Inactive AZITHROMYCIN 500 MG SOLR 1 po q day AZITHROMYCIN 500 MG SOLR 08941768600 AZITHROMYCIN Inactive VENTOLIN HFA 108 (90 BASE) MCG/ACT AERS 2 puffs four times a day PRN cough VENTOLIN HFA 108 (90 BASE) MCG/ACT AERS ALBUTEROL SULFATE Inactive LISINOPRIL 10 MG TABS 1/2-1 tab po every other day LISINOPRIL 10 MG TABS 515612 LISINOPRIL Inactive TUSSIONEX PENNKINETIC ER 10-8 MG/5ML LQCR 5ml po q12hr PRN Cough TUSSIONEX PENNKINETIC ER 10-8 MG/5ML LQCR HYDROCOD POLST- CHLORPHEN POLST Inactive PROMETHAZINE HCL 25 MG TABS 1 four times a day as needed for nausea/vomiting PROMETHAZINE HCL 25 MG TABS 921253 PROMETHAZINE HCL Inactive PREDNISONE 20 MG TAB 1 tablet twice daily for 2 days, then 1 tablet once daily for 2 days PREDNISONE 20 MG TAB 500939 PREDNISONE Inactive WARFARIN SODIUM 4 MG TABS 1 tab every evening WARFARIN SODIUM 4 MG TABS 073280 WARFARIN SODIUM Inactive LOMOTIL 2.5-0.025 MG TAB 1 to 2 four times a day as needed for diarrhea 10/13 LOMOTIL 2.5-0.025 MG TAB 3284545 DIPHENOXYLATE-ATROPINE Inactive IBUPROFEN 800 MG TABS 1 tab every 8 hours as needed IBUPROFEN 800 MG TABS 146851 IBUPROFEN Inactive PREDNISONE 20 MG TAB 2 tablets today, then 1 tablet days 2 through 4 PREDNISONE 20 MG TAB 514943 PREDNISONE Inactive GABAPENTIN 300 MG CAPS 1 po q hs for nerve pain GABAPENTIN 300 MG CAPS 669013 GABAPENTIN Inactive TRAMADOL HCL 50 MG TABS 1 po tid with ES Tylenol TRAMADOL HCL 50 MG TABS 987558 TRAMADOL HCL Inactive AZITHROMYCIN 250 MG TABS 2 po qd x 1 day, then 1 po qd x 4 days AZITHROMYCIN 250 MG TABS 1472882 AZITHROMYCIN Inactive AZITHROMYCIN 250 MG TABS 2 po qd x 1 day, then 1 po qd x 4 days AZITHROMYCIN 250 MG TABS 8802690 AZITHROMYCIN Inactive NYSTATIN-TRIAMCINOLONE 261674-9.1 UNIT/GM-% CREA Apply to area BID NYSTATIN-TRIAMCINOLONE 272638-0.1 UNIT/GM-% CREA 2098614 NYSTATIN-TRIAMCINOLONE Inactive AZITHROMYCIN 250 MG TABS 2 po qd x 1 day, then 1 po qd x 4 days AZITHROMYCIN 250 MG TABS 6857232 AZITHROMYCIN Inactive AZITHROMYCIN 250 MG TABS 2 po qd x 1 day, then 1 po qd x 4 days AZITHROMYCIN 250 MG TABS 3336090 AZITHROMYCIN Inactive AZITHROMYCIN 250 MG TABS 2 po qd x 1 day, then 1 po qd x 4 days AZITHROMYCIN 250 MG TABS 0731124 AZITHROMYCIN Inactive PREDNISONE 20 MG TAB 2 tabs daily for 3 days, 1 tab daily for 3 days, 1/2 tab daily for 2 days PREDNISONE 20 MG TAB 902621 PREDNISONE Inactive DOXYCYCLINE HYCLATE 100 MG CAP 1 cap by mouth BID x10 days 10/01 DOXYCYCLINE HYCLATE 100 MG CAP 4990044 DOXYCYCLINE HYCLATE Inactive Advance Directives Directive Description [...] Panel - Chemistry sodium, serum 141 mmol/L 945-922 0478/01/24 potassium, serum 4.3 mmol/L 3.5-5.2 chloride, serum [...] % 11.0-15.0 platelet count 172 THOUSAND/UL 10*3/mm3 756-559 9706/04/12 mean platelet volume 8.6 fL 7.5-12.5 Lab [...] 11.1-13.4 international normalized ratio (INR) 3.3 1.0-3.5 international normalized ratio (INR) 4.2 1.0-3.5 prothrombin time (patient) 23.1 SECS s 11.1-13.4 international normalized ratio (INR) 3.0 1.0-3.5 prothrombin time (patient) 20.8 SECS s 11.1-13.4 international normalized ratio (INR) 2.5 1.0-3.5 prothrombin time (patient) 27.8 SECS s 11.1-13.4 international normalized ratio (INR) 3.2 1.0-3.5 prothrombin time (patient) 23.8 SECS s 11.1-13.4 international normalized ratio (INR) 2.3 1.0-3.5 prothrombin time (patient) 19.8 SECS s 11.1-13.4 Lab Report: Prothrombin Time Hemochron - Coagulation prothrombin time (patient) 33.0 SECS s 18.9-24.9 Encounters Code Encounter Date Provider Facility CPT-06759 Level 3 Est. Patient 17:10:19 CDT Nella Harris [facility] CPT-12227 Level 3 Est. Patient 10:48:17 PERSONAL BANKING ASSISTANT Matthew Rangel MD [facility] CPT-24387 Level 4 Est. Patient 17:15:07 PERSONAL BANKING ASSISTANT Piotr Daley [facility] CPT-97576 Level 3 Est. Patient 12:46:13 PERSONAL BANKING ASSISTANT Piotr Daley [facility] CPT-48549 Level 3 Est. Patient 15:14:31 PERSONAL BANKING ASSISTANT Piotr Daley [facility] CPT-87907 Level 3 Est. Patient 09:20:13 PERSONAL BANKING ASSISTANT Piotr Katie Daley [facility] CPT-68443 Level 3 Est. Patient 09:49:40 CDT Piotr Wilson [facility] CPT-44583 Level 3 Est. Patient 16:28:11 CDT Piotr Katie [facility] CPT-19191 Level 3 Est. Patient 12:41:58 PERSONAL BANKING ASSISTANT Piotr Katie Edi [facility] CPT-44936 Level 3 Est. Patient 09:21:24 CDT Piotr Wilson Edi [facility] CPT-83808 Level 3 Est. Patient 09:21:11 CDT Piotr Katie [facility] CPT-39517 Level 3 Est. Patient 11:16:29 PERSONAL BANKING ASSISTANT Piotr Daley [facility] CPT-65259 Level 3 Est. Patient 18:40:19 PERSONAL BANKING ASSISTANT Piotr Daley [facility] CPT-00616 Level 3 Est. Patient 19:30:50 CDT Piotr Wilson [facility] CPT-73285 Level 3 Est. Patient 22:06:44 CDT Katrina Rinaldi MD PhD [facility] CPT-68775 Level 3 Est. Patient 14:20:00 CDT Piotr Daley [facility] CPT-22581 Level 3 Est. Patient 14:15:22 PERSONAL BANKING ASSISTANT Piotr Daley [facility] CPT-10106 Level 3 Est. Patient 20:19:57 PERSONAL BANKING ASSISTANT Piotr Daley [facility] CPT-79647 Level 3 Est. Patient 16:44:32 CDT Piotr Daley [facility] CPT-93143 Level 3 Est. Patient 08:48:46 PERSONAL BANKING ASSISTANT Piotr Daley [facility] CPT-73517 Level 3 Est. Patient 21:01:21 CDT Piotr Daley [facility] Procedures Code Procedure Name Date Entry Date Standard Description CPT-37495 BMP - LAB USE ONLY 17:19:11 PERSONAL BANKING ASSISTANT CPT-15172 PT/INR - LAB USE ONLY 17:19:10 PERSONAL BANKING ASSISTANT CPT-71324 Venipuncture Draw Fee 17:19:10 PERSONAL BANKING ASSISTANT CPT-78298 PT/INR - LAB USE ONLY 08:12:25 PERSONAL BANKING ASSISTANT CPT-52135 Venipuncture Draw Fee 08:12:24 PERSONAL BANKING ASSISTANT CPT-71499 Venipuncture Draw Fee 11:31:07 PERSONAL BANKING ASSISTANT CPT-58509 TPSA - LAB USE ONLY 11:31:07 PERSONAL BANKING ASSISTANT CPT-58050 PT/INR - LAB USE ONLY 11:31:07 PERSONAL BANKING ASSISTANT CPT-G0439 [facility] Annual Wellness Exam 09:59:29 PERSONAL BANKING ASSISTANT CPT-85629 Creatinine - LAB USE ONLY 14:37:55 PERSONAL BANKING ASSISTANT CPT-50219 PT/INR - LAB USE ONLY 14:37:55 PERSONAL BANKING ASSISTANT CPT-89034 Venipuncture Draw Fee 14:37:55 PERSONAL BANKING ASSISTANT CPT-88566 LS spine comp w obliques - XRAY USE ONLY 12:59:25 PERSONAL BANKING ASSISTANT CPT-48926 PT/INR - LAB USE ONLY 13:49:20 CDT CPT-93514 Venipuncture Draw Fee 13:49:19 CDT CPT-24871 PT/INR - LAB USE ONLY 15:48:49 CDT CPT-77995 Venipuncture Draw Fee 15:48:49 CDT CPT-28587 Venipuncture Draw Fee 11:31:59 CDT CPT-08726 PT/INR - LAB USE ONLY 11:31:59 CDT CPT-23601 Venipuncture Draw Fee 13:29:15 CDT CPT-75656 Thoracolumbar AP/Lat 15:19:19 PERSONAL BANKING ASSISTANT CPT-G0438 Initial Annual Wellness Exam 12:18:54 PERSONAL BANKING ASSISTANT CPT-48164 Knee 3V 09:57:38 CDT CPT-OV Office Visit 15:45:01 PERSONAL BANKING ASSISTANT CPT-88528 Abd compl w upright 17:10:25 CDT
--- OUTSIDE RECORDS SUMMARY | 2018-07-18 08:16 | XMS REPORT | Clinical Summary ---
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 Coronary atherosclerosis of unspecified type of vessel, [place] or graft Back pain, thoracic region, left [...] Katie Edi DO Bronchitis-Acute ICD-466.0 Inactive Piotr Katie Edi DO Back pain, thoracic region, left ICD-724.1 Inactive Piotr Daley DO FLANK PAIN, RIGHT ICD-789.09 Inactive Katrina Rinaldi MD PhD Medication List Medication Instructions Start Date Stop Date Generic Name NDC Status Provider Patient Instruction WARFARIN SODIUM 5 MG TABS 1 tablet daily WARFARIN SODIUM 35582363664 Active Simi Meyers Active TRAMADOL HCL 50 MG TABS 1 po tid with ES Tylenol TRAMADOL HCL 74726201192 Active Piotr Daley DO Active PREDNISONE 20 MG TAB 2 tablets today, then 1 tablet days 2 through 4 PREDNISONE 58466873940 No Longer Active Piotr Daley DO Active AZITHROMYCIN 250 MG TABS 2 po qd x 1 day, then 1 po qd x 4 days AZITHROMYCIN 67079784467 No Longer Active Piotr Daley DO Active IBUPROFEN 800 MG TABS 1 tab every 8 hours as needed IBUPROFEN 05584132214 No Longer Active Piotr Daley DO Active LOMOTIL 2.5-0.025 MG TAB 1 to 2 four times a day as needed for diarrhea 10/13 DIPHENOXYLATE-ATROPINE 57186000698 No Longer Active Piotr Daley DO Active WARFARIN SODIUM 4 MG TABS 1 tab every evening WARFARIN SODIUM 54256146660 No Longer Active Piotr Daley DO Active PREDNISONE 20 MG TAB 1 tablet twice daily for 2 days, then 1 tablet once daily for 2 days PREDNISONE 76410559195 No Longer Active Piotr Daley DO Active PROMETHAZINE HCL 25 MG TABS 1 four times a day as needed for nausea/vomiting PROMETHAZINE HCL 56426477036 No Longer Active Piotr Daley DO Active TUSSIONEX PENNKINETIC ER 10-8 MG/5ML LQCR 5ml po q12hr PRN Cough HYDROCOD POLST-CHLORPHEN POLST 27031796411 No Longer Active Piotr Daley DO Active AZITHROMYCIN 250 MG TABS 2 po qd x 1 day, then 1 po qd x 4 days AZITHROMYCIN 81719158043 No Longer Active Piotr Daley DO Active AZITHROMYCIN 250 MG TABS 2 po qd x 1 day, then 1 po qd x 4 days AZITHROMYCIN 36219980423 No Longer Active Piotr Daley DO Active LISINOPRIL-HYDROCHLOROTHIAZIDE 10-12.5 MG TABS 1 tab by mouth daily LISINOPRIL-HYDROCHLOROTHIAZIDE 57505732839 Active Hilary Ma MA Active LISINOPRIL 10 MG TABS 1/2-1 tab po every other day LISINOPRIL 45167206607 No Longer Active Piotr Daley DO Active VENTOLIN HFA 108 (90 BASE) MCG/ACT AERS 2 puffs four times a day PRN cough ALBUTEROL SULFATE 96438722739 No Longer Active Piotr Daley DO Active NYSTATIN-TRIAMCINOLONE 328244-1.1 UNIT/GM-% CREA Apply to area BID NYSTATIN-TRIAMCINOLONE 37032662426 No Longer Active Alena Oswaldum ELEVATOR PILOT Active PHISOHEX 3 % LIQD Use Directed HEXACHLOROPHENE 90345345048 No Longer Active Sandra Bland Active AZITHROMYCIN 250 MG TABS 2 po qd x 1 day, then 1 po qd x 4 days AZITHROMYCIN 41697176383 No Longer Active Katrina Rinaldi MD PhD Active AZITHROMYCIN 250 MG TABS 2 po qd x 1 day, then 1 po qd x 4 days AZITHROMYCIN 07514552974 No Longer Active Piotr Daley DO Active AZITHROMYCIN 500 MG SOLR 1 po q day AZITHROMYCIN 97665836504 No Longer Active Piotr Daley DO Active NYSTATIN-TRIAMCINOLONE 540928-1.1 UNIT/GM-% CREA apply bid 08/19 NYSTATIN-TRIAMCINOLONE 98859597742 No Longer Active Piotr Daley DO Active IBUPROFEN 800 MG TABS 1 po q 8 hours prn pain sparinly IBUPROFEN 38619425946 No Longer Active Piotr Daley DO Active VITAMIN D3 5000 UNIT CAPS 1 po daily CHOLECALCIFEROL 47296615244 Active Piotr Daley DO Active IBUPROFEN 800 MG TABS 1 po q 8 hours prn pain sparinly IBUPROFEN 800 MG TABS 355255 IBUPROFEN Inactive NYSTATIN-TRIAMCINOLONE 485129-6.1 UNIT/GM-% CREA apply bid 08/19 NYSTATIN-TRIAMCINOLONE 799209-4.1 UNIT/GM-% CREA 6173010 NYSTATIN- TRIAMCINOLONE Inactive AZITHROMYCIN 500 MG SOLR 1 po q day AZITHROMYCIN 500 MG SOLR 43081817809 AZITHROMYCIN Inactive VENTOLIN HFA 108 (90 BASE) MCG/ACT AERS 2 puffs four times a day PRN cough VENTOLIN HFA 108 (90 BASE) MCG/ACT AERS ALBUTEROL SULFATE Inactive LISINOPRIL 10 MG TABS 1/2-1 tab po every other day LISINOPRIL 10 MG TABS 820875 LISINOPRIL Inactive TUSSIONEX PENNKINETIC ER 10-8 MG/5ML LQCR 5ml po q12hr PRN Cough TUSSIONEX PENNKINETIC ER 10-8 MG/5ML LQCR HYDROCOD POLST- CHLORPHEN POLST Inactive PROMETHAZINE HCL 25 MG TABS 1 four times a day as needed for nausea/vomiting PROMETHAZINE HCL 25 MG TABS 496657 PROMETHAZINE HCL Inactive PREDNISONE 20 MG TAB 1 tablet twice daily for 2 days, then 1 tablet once daily for 2 days PREDNISONE 20 MG TAB 557097 PREDNISONE Inactive WARFARIN SODIUM 4 MG TABS 1 tab every evening WARFARIN SODIUM 4 MG TABS 395216 WARFARIN SODIUM Inactive LOMOTIL 2.5-0.025 MG TAB 1 to 2 four times a day as needed for diarrhea 10/13 LOMOTIL 2.5-0.025 MG TAB 4054186 DIPHENOXYLATE-ATROPINE Inactive IBUPROFEN 800 MG TABS 1 tab every 8 hours as needed IBUPROFEN 800 MG TABS 237960 IBUPROFEN Inactive PREDNISONE 20 MG TAB 2 tablets today, then 1 tablet days 2 through 4 PREDNISONE 20 MG TAB 453875 PREDNISONE Inactive AZITHROMYCIN 250 MG TABS 2 po qd x 1 day, then 1 po qd x 4 days AZITHROMYCIN 250 MG TABS 4808586 AZITHROMYCIN Inactive AZITHROMYCIN 250 MG TABS 2 po qd x 1 day, then 1 po qd x 4 days AZITHROMYCIN 250 MG TABS 5204453 AZITHROMYCIN Inactive NYSTATIN-TRIAMCINOLONE 335884-8.1 UNIT/GM-% CREA Apply to area BID NYSTATIN-TRIAMCINOLONE 288768-7.1 UNIT/GM-% CREA 8757079 NYSTATIN-TRIAMCINOLONE Inactive AZITHROMYCIN 250 MG TABS 2 po qd x 1 day, then 1 po qd x 4 days AZITHROMYCIN 250 MG TABS 3735461 AZITHROMYCIN Inactive AZITHROMYCIN 250 MG TABS 2 po qd x 1 day, then 1 po qd x 4 days AZITHROMYCIN 250 MG TABS 0753885 AZITHROMYCIN Inactive AZITHROMYCIN 250 MG TABS 2 po qd x 1 day, then 1 po qd x 4 days AZITHROMYCIN 250 MG TABS 3340984 AZITHROMYCIN Inactive Advance Directives Directive Description Start [...] Panel - Chemistry sodium, serum 141 mmol/L 083-446 7103/06/28 carbon dioxide, venous blood 31.0 mmol/L 21.0-32.0 [...] Prothrombin Time - Coagulation prothrombin time (patient) 18.1 SECS s 11.1-13.4 prothrombin time (patient) 23.8 SECS s 11.1-13.4 international normalized ratio (INR) 3.2 1.0-3.5 international normalized ratio (INR) 2.4 1.0-3.5 international normalized ratio (INR) 1.9 1.0-3.5 prothrombin time (patient) 18.9 SECS s 11.1-13.4 prothrombin time (patient) 16.6 SECS s 11.1-13.4 prothrombin time (patient) 15.4 SECS s 11.1-13.4 international normalized ratio (INR) 1.7 1.0-3.5 prothrombin time (patient) 22.8 SECS s 11.1-13.4 international normalized ratio (INR) 3.0 1.0-3.5 international normalized ratio (INR) 2.2 1.0-3.5 international normalized ratio (INR) 2.3 1.0-3.5 prothrombin time (patient) 18.3 SECS s 11.1-13.4 prothrombin time (patient) 19.8 [...] Negative Encounters Code Encounter Date Provider Facility CPT-80315 Level 3 Est. Patient 15:14:31 MEDICAL TRANSCRIPTIONIST Piotr Katie Edi [facility] CPT-23066 Level 3 Est. Patient 09:20:13 MEDICAL TRANSCRIPTIONIST Piotr Katie Daley [facility] CPT-04958 Level 3 Est. Patient 09:49:40 CDT Piotr Daley [facility] CPT-56736 Level 3 Est. Patient 16:28:11 CDT Piotr Wilson Edi [facility] CPT-32004 Level 3 Est. Patient 12:41:58 MEDICAL TRANSCRIPTIONIST Piotr Katie Daley [facility] CPT-56705 Level 3 Est. Patient 09:21:24 CDT Piotr Daley [facility] CPT-66625 Level 3 Est. Patient 09:21:11 CDT Piotr Wilson Edi [facility] CPT-46609 Level 3 Est. Patient 11:16:29 MEDICAL TRANSCRIPTIONIST Piotr Wilson Edi [facility] CPT-90087 Level 3 Est. Patient 18:40:19 MEDICAL TRANSCRIPTIONIST Piotr Katie Daley [facility] CPT-45803 Level 3 Est. Patient 19:30:50 CDT Piotr Katie Daley [facility] CPT-19031 Level 3 Est. Patient 22:06:44 CDT Katrina Rinaldi MD PhD [facility] CPT-10132 Level 3 Est. Patient 14:20:[address] [facility] CPT-01379 Level 3 Est. Patient 14:15:22 MEDICAL TRANSCRIPTIONIST Piotr Daley [facility] CPT-53054 Level 3 Est. Patient 20:19:57 MEDICAL TRANSCRIPTIONIST Piotr Daley [facility] CPT-29523 Level 3 Est. Patient 16:44:32 CDT Piotr Wilson [facility] CPT-13103 Level 3 Est. Patient 08:48:46 MEDICAL TRANSCRIPTIONIST Piotr W Edi DO [facility] CPT-48485 Level 3 Est. Patient 21:01:[address] [facility] Procedures Code Procedure Name Date Entry Date Standard Description CPT-17780 PT/INR - LAB USE ONLY 13:49:20 CDT CPT-21839 Venipuncture Draw Fee 13:49:19 CDT CPT-72858 PT/INR - LAB USE ONLY 15:48:49 CDT CPT-82775 Venipuncture Draw Fee 15:48:49 CDT CPT-00387 Venipuncture Draw Fee 11:31:59 CDT CPT-31297 PT/INR - LAB USE ONLY 11:31:59 CDT CPT-42177 Venipuncture Draw Fee 13:29:15 CDT CPT-85618 Thoracolumbar AP/Lat 15:19:19 MEDICAL TRANSCRIPTIONIST CPT-G0438 Initial Annual Wellness Exam 12:18:54 MEDICAL TRANSCRIPTIONIST CPT-43864 Knee 3V 09:57:38 CDT CPT-OV Office Visit 15:45:01 MEDICAL TRANSCRIPTIONIST CPT-15406 Abd compl w upright 17:10:25 CDT
--- OUTSIDE RECORDS SUMMARY | 2018-07-18 08:17 | XMS REPORT | Clinical Summary ---
Author Author Admin, YONG Organization [facility] Address Unknown Phone Unavailable Allergies, [...] neoplasm of prostate V10.46 Active Alina Meyers POOL LIFEGUARD Personal history of malignant neoplasm of prostate Coronary artery disease 414.00 Active Alina Meyers POOL LIFEGUARD Coronary atherosclerosis of unspecified type of vessel, qagan tayagungin or graft Back pain, thoracic region, left [...] po tid with ES Tylenol TRAMADOL HCL 49350945667 Active Piotr Daley DO Active WARFARIN SODIUM 5 MG TABS 1 tablet daily except for Saturday and Sat 1/ tablet. WARFARIN SODIUM 01968652870 Active Hilary Ma MA Active PREDNISONE 20 MG TAB 2 tablets today, then 1 tablet days 2 through 4 PREDNISONE 42754399713 No Longer Active Piotr Daley DO Active AZITHROMYCIN 250 MG TABS 2 po qd x 1 day, then 1 po qd x 4 days AZITHROMYCIN 81315107024 No Longer Active Piotr Daley DO Active IBUPROFEN 800 MG TABS 1 tab every 8 hours as needed IBUPROFEN 66606960234 No Longer Active Piotr Daley DO Active LOMOTIL 2.5-0.025 MG TAB 1 to 2 four times a day as needed for diarrhea 10/13 DIPHENOXYLATE-ATROPINE 51062805598 No Longer Active Piotr Daley DO Active WARFARIN SODIUM 4 MG TABS 1 tab every evening WARFARIN SODIUM 03779300121 No Longer Active Piotr Daley DO Active PREDNISONE 20 MG TAB 1 tablet twice daily for 2 days, then 1 tablet once daily for 2 days PREDNISONE 98889387102 No Longer Active Piotr Daley DO Active PROMETHAZINE HCL 25 MG TABS 1 four times a day as needed for nausea/vomiting PROMETHAZINE HCL 97158500382 No Longer Active Piotr Daley DO Active TUSSIONEX PENNKINETIC ER 10-8 MG/5ML LQCR 5ml po q12hr PRN Cough HYDROCOD POLST-CHLORPHEN POLST 49767198382 No Longer Active Piotr Daley DO Active AZITHROMYCIN 250 MG TABS 2 po qd x 1 day, then 1 po qd x 4 days AZITHROMYCIN 46159535213 No Longer Active Piotr Daley DO Active AZITHROMYCIN 250 MG TABS 2 po qd x 1 day, then 1 po qd x 4 days AZITHROMYCIN 88935306540 No Longer Active Piotr Daley DO Active LISINOPRIL-HYDROCHLOROTHIAZIDE 10-12.5 MG TABS 1 tab by mouth daily LISINOPRIL-HYDROCHLOROTHIAZIDE 35893973053 Active Hilary Ma MA Active LISINOPRIL 10 MG TABS 1/2-1 tab po every other day LISINOPRIL 27988222641 No Longer Active Piotr Daley DO Active VENTOLIN HFA 108 (90 BASE) MCG/ACT AERS 2 puffs four times a day PRN cough ALBUTEROL SULFATE 86221841908 No Longer Active Piotr Daley DO Active NYSTATIN-TRIAMCINOLONE 144020-7.1 UNIT/GM-% CREA Apply to area BID NYSTATIN-TRIAMCINOLONE 63525867518 No Longer Active Alena Chavira BOW MAKER MACHINE TENDER Active PHISOHEX 3 % LIQD Use Directed HEXACHLOROPHENE 09080187446 No Longer Active Sandra [place] Active AZITHROMYCIN 250 MG TABS 2 po qd x 1 day, then 1 po qd x 4 days AZITHROMYCIN 49866923732 No Longer Active Katrina Rinaldi MD PhD Active AZITHROMYCIN 250 MG TABS 2 po qd x 1 day, then 1 po qd x 4 days AZITHROMYCIN 13370325630 No Longer Active Piotr Daley DO Active AZITHROMYCIN 500 MG SOLR 1 po q day AZITHROMYCIN 55739248969 No Longer Active Piotr Dlaey DO Active NYSTATIN-TRIAMCINOLONE 698964-4.1 UNIT/GM-% CREA apply bid 08/19 NYSTATIN-TRIAMCINOLONE 24257828728 No Longer Active Piotr W Edi DO Active IBUPROFEN 800 MG TABS 1 po q 8 hours prn pain sparinly IBUPROFEN 41561429154 No Longer Active Piotr Daley DO Active VITAMIN D3 5000 UNIT CAPS 1 po daily CHOLECALCIFEROL 89316670933 Active Piotr Wilson Edi DO Active IBUPROFEN 800 MG TABS 1 po q 8 hours prn pain sparinly IBUPROFEN 800 MG TABS 479549 IBUPROFEN Inactive NYSTATIN-TRIAMCINOLONE 566398-8.1 UNIT/GM-% CREA apply bid 08/19 NYSTATIN-TRIAMCINOLONE 432661-9.1 UNIT/GM-% CREA 6444141 NYSTATIN- TRIAMCINOLONE Inactive AZITHROMYCIN 500 MG SOLR 1 po q day AZITHROMYCIN 500 MG SOLR 17396892583 AZITHROMYCIN Inactive VENTOLIN HFA 108 (90 BASE) MCG/ACT AERS 2 puffs four times a day PRN cough VENTOLIN HFA 108 (90 BASE) MCG/ACT AERS ALBUTEROL SULFATE Inactive LISINOPRIL 10 MG TABS 1/2-1 tab po every other day LISINOPRIL 10 MG TABS 230178 LISINOPRIL Inactive TUSSIONEX PENNKINETIC ER 10-8 MG/5ML LQCR 5ml po q12hr PRN Cough TUSSIONEX PENNKINETIC ER 10-8 MG/5ML LQCR HYDROCOD POLST- CHLORPHEN POLST Inactive PROMETHAZINE HCL 25 MG TABS 1 four times a day as needed for nausea/vomiting PROMETHAZINE HCL 25 MG TABS 616393 PROMETHAZINE HCL Inactive PREDNISONE 20 MG TAB 1 tablet twice daily for 2 days, then 1 tablet once daily for 2 days PREDNISONE 20 MG TAB 752139 PREDNISONE Inactive WARFARIN SODIUM 4 MG TABS 1 tab every evening WARFARIN SODIUM 4 MG TABS 365521 WARFARIN SODIUM Inactive LOMOTIL 2.5-0.025 MG TAB 1 to 2 four times a day as needed for diarrhea 10/13 LOMOTIL 2.5-0.025 MG TAB 4559565 DIPHENOXYLATE-ATROPINE Inactive IBUPROFEN 800 MG TABS 1 tab every 8 hours as needed IBUPROFEN 800 MG TABS 242735 IBUPROFEN Inactive PREDNISONE 20 MG TAB 2 tablets today, then 1 tablet days 2 through 4 PREDNISONE 20 MG TAB 668392 PREDNISONE Inactive AZITHROMYCIN 250 MG TABS 2 po qd x 1 day, then 1 po qd x 4 days AZITHROMYCIN 250 MG TABS 7355861 AZITHROMYCIN Inactive AZITHROMYCIN 250 MG TABS 2 po qd x 1 day, then 1 po qd x 4 days AZITHROMYCIN 250 MG TABS 8310463 AZITHROMYCIN Inactive NYSTATIN-TRIAMCINOLONE 394292-9.1 UNIT/GM-% CREA Apply to area BID NYSTATIN-TRIAMCINOLONE 909451-8.1 UNIT/GM-% CREA 9084595 NYSTATIN-TRIAMCINOLONE Inactive AZITHROMYCIN 250 MG TABS 2 po qd x 1 day, then 1 po qd x 4 days AZITHROMYCIN 250 MG TABS 0925835 AZITHROMYCIN Inactive AZITHROMYCIN 250 MG TABS 2 po qd x 1 day, then 1 po qd x 4 days AZITHROMYCIN 250 MG TABS 7450786 AZITHROMYCIN Inactive AZITHROMYCIN 250 MG TABS 2 po qd x 1 day, then 1 po qd x 4 days AZITHROMYCIN 250 MG TABS 2719872 AZITHROMYCIN Inactive Advance Directives Directive Description Start [...] mg/g mg/g{creat} 0-29 sodium, serum 140 mmol/L 700-592 4750/07/17 potassium, serum 4.2 mmol/L 3.5-5.2 chloride, serum [...] 5.0-8.5 Encounters Code Encounter Date Provider Facility CPT-60956 Level 3 Est. Patient 15:14:31 WATER QUALITY TECHNICIAN Piotr Daley DO [facility] CPT-23859 Level 3 Est. Patient 09:20:13 WATER QUALITY TECHNICIAN Piotr Daley [facility] CPT-07587 Level 3 Est. Patient 09:49:40 CDT Piotr Daley [facility] CPT-58580 Level 3 Est. Patient 16:28:11 CDT Piotr Daley [facility] CPT-80634 Level 3 Est. Patient 12:41:58 WATER QUALITY TECHNICIAN Piotr Daley [facility] CPT-77414 Level 3 Est. Patient 09:21:24 CDT Piotr Daley [facility] CPT-06262 Level 3 Est. Patient 09:21:11 CDT Piotr Daley [facility] CPT-48702 Level 3 Est. Patient 11:16:29 WATER QUALITY TECHNICIAN Piotr Daley [facility] CPT-84854 Level 3 Est. Patient 18:40:19 WATER QUALITY TECHNICIAN Piotr Daley [facility] CPT-74804 Level 3 Est. Patient 19:30:50 CDT Piotr Daley [facility] CPT-71005 Level 3 Est. Patient 22:06:44 CDT Katrina Rinaldi MD [facility] CPT-36198 Level 3 Est. Patient 14:20:00 CDT Piotr Daley [facility] CPT-31082 Level 3 Est. Patient 14:15:22 WATER QUALITY TECHNICIAN Piotr Daley [facility] CPT-81582 Level 3 Est. Patient 20:19:57 WATER QUALITY TECHNICIAN Piotr Daley [facility] CPT-94725 Level 3 Est. Patient 16:44:32 CDT Piotr Katie Daley [facility] CPT-74763 Level 3 Est. Patient 08:48:46 WATER QUALITY TECHNICIAN Piotr [facility] CPT-77830 Level 3 Est. Patient 21:01:21 CDT Piotr Katie Edi [facility] Procedures Code Procedure Name Date Entry Date Standard Description CPT-56581 Thoracolumbar AP/Lat 15:19:19 WATER QUALITY TECHNICIAN CPT-G0438 Initial Annual Wellness Exam 12:18:54 WATER QUALITY TECHNICIAN CPT-46247 Knee 3V 09:57:38 CDT CPT-OV Office Visit 15:45:01 WATER QUALITY TECHNICIAN CPT-35653 Abd compl w upright 17:10:25 CDT
--- OUTSIDE RECORDS SUMMARY | 2018-07-18 08:18 | XMS REPORT | Clinical Summary ---
Author Author Admin, YONG Organization [facility] Address Unknown Phone Unavailable Allergies, [...] essential hypertension FLANK PAIN, RIGHT 789.09 Resolved Katrnia Rinaldi MD PhD Abdominal pain, other specified [...] 1 tablet days 2 through 4 PREDNISONE 70579932941 No Longer Active Piotr Daley DO Active AZITHROMYCIN 250 MG TABS 2 po qd x 1 day, then 1 po qd x 4 days AZITHROMYCIN 18654523087 No Longer Active Piotr Daley DO Active IBUPROFEN 800 MG TABS 1 tab every 8 hours as needed IBUPROFEN 20742084007 No Longer Active Piotr Daley DO Active LOMOTIL 2.5-0.025 MG TAB 1 to 2 four times a day as needed for diarrhea 10/13 DIPHENOXYLATE-ATROPINE 41787455247 No Longer Active Piotr Daley DO Active WARFARIN SODIUM 5 MG TABS 1 tablet daily except for Saturday and 04/09 tablet. WARFARIN SODIUM 18509656189 Active Piotr Daley DO Active WARFARIN SODIUM 4 MG TABS 1 tab every evening WARFARIN SODIUM 04304409930 No Longer Active Piotr Daley DO Active PREDNISONE 20 MG TAB 1 tablet twice daily for 2 days, then 1 tablet once daily for 2 days PREDNISONE 88282077410 No Longer Active Piotr Daley DO Active PROMETHAZINE HCL 25 MG TABS 1 four times a day as needed for nausea/vomiting PROMETHAZINE HCL 15073958408 No Longer Active Piotr Daley DO Active TUSSIONEX PENNKINETIC ER 10-8 MG/5ML LQCR 5ml po q12hr PRN Cough HYDROCOD POLST-CHLORPHEN POLST 02913159571 No Longer Active Piotr Daley DO Active AZITHROMYCIN 250 MG TABS 2 po qd x 1 day, then 1 po qd x 4 days AZITHROMYCIN 49381972722 No Longer Active Piotr Daley DO Active AZITHROMYCIN 250 MG TABS 2 po qd x 1 day, then 1 po qd x 4 days AZITHROMYCIN 84322368517 No Longer Active Piotr Daley DO Active LISINOPRIL-HYDROCHLOROTHIAZIDE 10-12.5 MG TABS 1 tab by mouth daily LISINOPRIL-HYDROCHLOROTHIAZIDE 62642808431 Active Piotr Daley DO Active LISINOPRIL 10 MG TABS 1/2-1 tab po every other day LISINOPRIL 32082256242 No Longer Active Piotr Daley DO Active VENTOLIN HFA 108 (90 BASE) MCG/ACT AERS 2 puffs four times a day PRN cough ALBUTEROL SULFATE 51741900391 No Longer Active Piotr Daley DO Active NYSTATIN-TRIAMCINOLONE 900920-8.1 UNIT/GM-% CREA Apply to area BID NYSTATIN-TRIAMCINOLONE 60566221787 No Longer Active Alena Chavira ELECTRICIAN MANAGER Active PHISOHEX 3 % LIQD Use Directed HEXACHLOROPHENE 64285978409 No Longer Active Sandra [place] Active AZITHROMYCIN 250 MG TABS 2 po qd x 1 day, then 1 po qd x 4 days AZITHROMYCIN 02430646475 No Longer Active Katrina Rinaldi MD PhD Active AZITHROMYCIN 250 MG TABS 2 po qd x 1 day, then 1 po qd x 4 days AZITHROMYCIN 06508121406 No Longer Active Piotr Daley DO Active AZITHROMYCIN 500 MG SOLR 1 po q day AZITHROMYCIN 68300150085 No Longer Active Piotr Daley DO Active NYSTATIN-TRIAMCINOLONE 979417-2.1 UNIT/GM-% CREA apply bid 08/19 NYSTATIN-TRIAMCINOLONE 14515014606 No Longer Active Piotr Daley DO Active IBUPROFEN 800 MG TABS 1 po q 8 hours prn pain sparinly IBUPROFEN 91436634397 No Longer Active Piotr Daley DO Active VITAMIN D3 5000 UNIT CAPS 1 po daily CHOLECALCIFEROL 64369910142 Active Piotr Daley DO Active IBUPROFEN 800 MG TABS 1 po q 8 hours prn pain sparinly IBUPROFEN 800 MG TABS 012294 IBUPROFEN Inactive NYSTATIN-TRIAMCINOLONE 204887-6.1 UNIT/GM-% CREA apply bid 08/19 NYSTATIN-TRIAMCINOLONE 719671-6.1 UNIT/GM-% CREA 5439128 NYSTATIN- TRIAMCINOLONE Inactive AZITHROMYCIN 500 MG SOLR 1 po q day AZITHROMYCIN 500 MG SOLR 302805 AZITHROMYCIN Inactive VENTOLIN HFA 108 (90 BASE) MCG/ACT AERS 2 puffs four times a day PRN cough VENTOLIN HFA 108 (90 BASE) MCG/ACT AERS ALBUTEROL SULFATE Inactive LISINOPRIL 10 MG TABS 1/2-1 tab po every other day LISINOPRIL 10 MG TABS 711498 LISINOPRIL Inactive TUSSIONEX PENNKINETIC ER 10-8 MG/5ML LQCR 5ml po q12hr PRN Cough TUSSIONEX PENNKINETIC ER 10-8 MG/5ML LQCR HYDROCOD POLST- CHLORPHEN POLST Inactive PROMETHAZINE HCL 25 MG TABS 1 four times a day as needed for nausea/vomiting PROMETHAZINE HCL 25 MG TABS 349371 PROMETHAZINE HCL Inactive PREDNISONE 20 MG TAB 1 tablet twice daily for 2 days, then 1 tablet once daily for 2 days PREDNISONE 20 MG TAB 001436 PREDNISONE Inactive WARFARIN SODIUM 4 MG TABS 1 tab every evening WARFARIN SODIUM 4 MG TABS 065764 WARFARIN SODIUM Inactive LOMOTIL 2.5-0.025 MG TAB 1 to 2 four times a day as needed for diarrhea 10/13 LOMOTIL 2.5-0.025 MG TAB 6986083 DIPHENOXYLATE-ATROPINE Inactive IBUPROFEN 800 MG TABS 1 tab every 8 hours as needed IBUPROFEN 800 MG TABS 640142 IBUPROFEN Inactive PREDNISONE 20 MG TAB 2 tablets today, then 1 tablet days 2 through 4 PREDNISONE 20 MG TAB 212191 PREDNISONE Inactive AZITHROMYCIN 250 MG TABS 2 po qd x 1 day, then 1 po qd x 4 days AZITHROMYCIN 250 MG TABS 2724464 AZITHROMYCIN Inactive AZITHROMYCIN 250 MG TABS 2 po qd x 1 day, then 1 po qd x 4 days AZITHROMYCIN 250 MG TABS 0181386 AZITHROMYCIN Inactive NYSTATIN-TRIAMCINOLONE 888155-0.1 UNIT/GM-% CREA Apply to area BID NYSTATIN-TRIAMCINOLONE 661059-4.1 UNIT/GM-% CREA 8656423 NYSTATIN-TRIAMCINOLONE Inactive AZITHROMYCIN 250 MG TABS 2 po qd x 1 day, then 1 po qd x 4 days AZITHROMYCIN 250 MG TABS 9657718 AZITHROMYCIN Inactive AZITHROMYCIN 250 MG TABS 2 po qd x 1 day, then 1 po qd x 4 days AZITHROMYCIN 250 MG TABS 1940257 AZITHROMYCIN Inactive AZITHROMYCIN 250 MG TABS 2 po qd x 1 day, then 1 po qd x 4 days AZITHROMYCIN 250 MG TABS 4300265 AZITHROMYCIN Inactive Vital Signs Date Name Value [...] ratio (INR) 2.4 1.0-3.5 prothrombin time (patient) 19.3 SECS s 11.1-13.4 prothrombin time (patient) 19.5 SECS s 11.1-13.4 international normalized ratio (INR) 2.5 1.0-3.5 prothrombin time (patient) 16.0 SECS s 11.1-13.4 international normalized ratio (INR) 1.7 1.0-3.5 prothrombin time (patient) 15.4 SECS s 11.1-13.4 international normalized ratio (INR) 1.6 1.0-3.5 international normalized ratio (INR) 1.4 1.0-3.5 prothrombin time (patient) 21.0 SECS s 11.1-13.4 international normalized ratio (INR) 2.8 1.0-3.5 prothrombin time (patient) 17.7 SECS s 11.1-13.4 international normalized ratio (INR) 2.0 1.0-3.5 prothrombin time (patient) 14.5 SECS s 11.1-13.4 international normalized ratio (INR) 3.5 1.0-3.5 Lab Report: Prothrombin Time, Basic Metabolic Panel, CBC, Prostatic Spec ... - Chemistry sodium, serum 142 mmol/L 294-094 5740/12/01 potassium, serum 4.7 mmol/L 3.5-5.2 chloride, serum [...] 142-424 Encounters Code Encounter Date Provider Facility CPT-89994 Level 3 Est. Patient 09:49:40 CDT Piotr Daley DO [facility] CPT-14624 Level 3 Est. Patient 16:28:11 CDT Piotr Daley [facility] CPT-53396 Level 3 Est. Patient 12:41:58 LICENSED APPRAISER Piotr Daley [facility] CPT-10831 Level 3 Est. Patient 09:21:24 CDT Piotr Daley [facility] CPT-61669 Level 3 Est. Patient 09:21:11 CDT Piotr Daley [facility] CPT-85784 Level 3 Est. Patient 11:16:29 LICENSED APPRAISER Piotr Daley [facility] CPT-05068 Level 3 Est. Patient 18:40:19 LICENSED APPRAISER Piotr Daley [facility] CPT-87738 Level 3 Est. Patient 19:30:50 CDT Piotr Daley [facility] CPT-56685 Level 3 Est. Patient 22:06:44 CDT Katrina Rinaldi MD PhD [facility] CPT-91326 Level 3 Est. Patient 14:20:00 CDT Piotr Daley [facility] CPT-99842 Level 3 Est. Patient 14:15:22 LICENSED APPRAISER Piotr Katie Daley [facility] CPT-49887 Level 3 Est. Patient 20:19:57 LICENSED APPRAISER Piotr Daley [facility] CPT-81490 Level 3 Est. Patient 16:44:32 CDT Piotr Katie Daley [facility] CPT-15940 Level 3 Est. Patient 08:48:46 LICENSED APPRAISER Piotr iWlson [facility] CPT-02208 Level 3 Est. Patient 21:01:21 CDT Piotr Katie Edi [facility] Procedures Code Procedure Name Date Entry Date Standard Description CPT-51352 Knee 3V 09:57:38 CDT CPT-OV Office Visit 15:45:01 LICENSED APPRAISER CPT-96625 Abd compl w upright 17:10:25 CDT
--- OUTSIDE RECORDS SUMMARY | 2018-07-18 08:18 | XMS REPORT | Clinical Summary ---
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 Alina Meyers PROJECT GEOLOGIST Personal history of malignant neoplasm of prostate Coronary artery disease 414.00 Active Alina Luigi PROJECT GEOLOGIST Coronary atherosclerosis of unspecified type of vessel, [...] MG TABS 1 tablet daily WARFARIN SODIUM 82510453616 Active Simi Meyers Active TRAMADOL HCL 50 MG TABS 1 po tid with ES Tylenol TRAMADOL HCL 09029579681 Active Piotr Daley DO Active PREDNISONE 20 MG TAB 2 tablets today, then 1 tablet days 2 through 4 PREDNISONE 08351154475 No Longer Active Piotr Daley DO Active AZITHROMYCIN 250 MG TABS 2 po qd x 1 day, then 1 po qd x 4 days AZITHROMYCIN 27998451644 No Longer Active Piotr Daley DO Active IBUPROFEN 800 MG TABS 1 tab every 8 hours as needed IBUPROFEN 39203054985 No Longer Active Piotr Daley DO Active LOMOTIL 2.5-0.025 MG TAB 1 to 2 four times a day as needed for diarrhea 10/13 DIPHENOXYLATE-ATROPINE 79004929668 No Longer Active Piotr Daley DO Active WARFARIN SODIUM 4 MG TABS 1 tab every evening WARFARIN SODIUM 67181031465 No Longer Active Piotr Daley DO Active PREDNISONE 20 MG TAB 1 tablet twice daily for 2 days, then 1 tablet once daily for 2 days PREDNISONE 16175436891 No Longer Active Piotr Daley DO Active PROMETHAZINE HCL 25 MG TABS 1 four times a day as needed for nausea/vomiting PROMETHAZINE HCL 15946749657 No Longer Active Piotr Daley DO Active TUSSIONEX PENNKINETIC ER 10-8 MG/5ML LQCR 5ml po q12hr PRN Cough HYDROCOD POLST-CHLORPHEN POLST 48146593767 No Longer Active Piotr Daley DO Active AZITHROMYCIN 250 MG TABS 2 po qd x 1 day, then 1 po qd x 4 days AZITHROMYCIN 03440783792 No Longer Active Piotr Daley DO Active AZITHROMYCIN 250 MG TABS 2 po qd x 1 day, then 1 po qd x 4 days AZITHROMYCIN 96385483913 No Longer Active Piotr Daley DO Active LISINOPRIL-HYDROCHLOROTHIAZIDE 10-12.5 MG TABS 1 tab by mouth daily LISINOPRIL-HYDROCHLOROTHIAZIDE 10719804902 Active Hilary Ma MA Active LISINOPRIL 10 MG TABS 1/2-1 tab po every other day LISINOPRIL 99445307813 No Longer Active Piotr Daley DO Active VENTOLIN HFA 108 (90 BASE) MCG/ACT AERS 2 puffs four times a day PRN cough ALBUTEROL SULFATE 89022717266 No Longer Active Piotr Daley DO Active NYSTATIN-TRIAMCINOLONE 346106-0.1 UNIT/GM-% CREA Apply to area BID NYSTATIN-TRIAMCINOLONE 36437567656 No Longer Active Alena sOwaldum SEED CORE OPERATOR Active PHISOHEX 3 % LIQD Use Directed HEXACHLOROPHENE 54777557532 No Longer Active Sandra [place] Active AZITHROMYCIN 250 MG TABS 2 po qd x 1 day, then 1 po qd x 4 days AZITHROMYCIN 82325674797 No Longer Active Katrina Rinaldi MD PhD Active AZITHROMYCIN 250 MG TABS 2 po qd x 1 day, then 1 po qd x 4 days AZITHROMYCIN 43767866284 No Longer Active Piotr Daley DO Active AZITHROMYCIN 500 MG SOLR 1 po q day AZITHROMYCIN 45198879685 No Longer Active Piotr Daley DO Active NYSTATIN-TRIAMCINOLONE 850148-8.1 UNIT/GM-% CREA apply bid 08/19 NYSTATIN-TRIAMCINOLONE 73271880333 No Longer Active Piotr Daley DO Active IBUPROFEN 800 MG TABS 1 po q 8 hours prn pain sparinly IBUPROFEN 44595365276 No Longer Active Piotr Daley DO Active VITAMIN D3 5000 UNIT CAPS 1 po daily CHOLECALCIFEROL 71936707740 Active Piotr Daley DO Active IBUPROFEN 800 MG TABS 1 po q 8 hours prn pain sparinly IBUPROFEN 800 MG TABS 643371 IBUPROFEN Inactive NYSTATIN-TRIAMCINOLONE 789134-3.1 UNIT/GM-% CREA apply bid 08/19 NYSTATIN-TRIAMCINOLONE 679936-2.1 UNIT/GM-% CREA 3302436 NYSTATIN- TRIAMCINOLONE Inactive AZITHROMYCIN 500 MG SOLR 1 po q day AZITHROMYCIN 500 MG SOLR 21425855704 AZITHROMYCIN Inactive VENTOLIN HFA 108 (90 BASE) MCG/ACT AERS 2 puffs four times a day PRN cough VENTOLIN HFA 108 (90 BASE) MCG/ACT AERS ALBUTEROL SULFATE Inactive LISINOPRIL 10 MG TABS 1/2-1 tab po every other day LISINOPRIL 10 MG TABS 711950 LISINOPRIL Inactive TUSSIONEX PENNKINETIC ER 10-8 MG/5ML LQCR 5ml po q12hr PRN Cough TUSSIONEX PENNKINETIC ER 10-8 MG/5ML LQCR HYDROCOD POLST- CHLORPHEN POLST Inactive PROMETHAZINE HCL 25 MG TABS 1 four times a day as needed for nausea/vomiting PROMETHAZINE HCL 25 MG TABS 802313 PROMETHAZINE HCL Inactive PREDNISONE 20 MG TAB 1 tablet twice daily for 2 days, then 1 tablet once daily for 2 days PREDNISONE 20 MG TAB 415384 PREDNISONE Inactive WARFARIN SODIUM 4 MG TABS 1 tab every evening WARFARIN SODIUM 4 MG TABS 689233 WARFARIN SODIUM Inactive LOMOTIL 2.5-0.025 MG TAB 1 to 2 four times a day as needed for diarrhea 10/13 LOMOTIL 2.5-0.025 MG TAB 0748617 DIPHENOXYLATE-ATROPINE Inactive IBUPROFEN 800 MG TABS 1 tab every 8 hours as needed IBUPROFEN 800 MG TABS 978661 IBUPROFEN Inactive PREDNISONE 20 MG TAB 2 tablets today, then 1 tablet days 2 through 4 PREDNISONE 20 MG TAB 731145 PREDNISONE Inactive AZITHROMYCIN 250 MG TABS 2 po qd x 1 day, then 1 po qd x 4 days AZITHROMYCIN 250 MG TABS 6439147 AZITHROMYCIN Inactive AZITHROMYCIN 250 MG TABS 2 po qd x 1 day, then 1 po qd x 4 days AZITHROMYCIN 250 MG TABS 6232042 AZITHROMYCIN Inactive NYSTATIN-TRIAMCINOLONE 845541-7.1 UNIT/GM-% CREA Apply to area BID NYSTATIN-TRIAMCINOLONE 944775-9.1 UNIT/GM-% CREA 4079084 NYSTATIN-TRIAMCINOLONE Inactive AZITHROMYCIN 250 MG TABS 2 po qd x 1 day, then 1 po qd x 4 days AZITHROMYCIN 250 MG TABS 9031874 AZITHROMYCIN Inactive AZITHROMYCIN 250 MG TABS 2 po qd x 1 day, then 1 po qd x 4 days AZITHROMYCIN 250 MG TABS 4522854 AZITHROMYCIN Inactive AZITHROMYCIN 250 MG TABS 2 po qd x 1 day, then 1 po qd x 4 days AZITHROMYCIN 250 MG TABS 8537821 AZITHROMYCIN Inactive Advance Directives Directive Description Start [...] Panel - Chemistry sodium, serum 141 mmol/L 442-518 3548/06/28 carbon dioxide, venous blood 31.0 mmol/L 21.0-32.0 [...] Negative Encounters Code Encounter Date Provider Facility CPT-77271 Level 3 Est. Patient 15:14:31 DIVISION OPERATIONS MANAGER Piotr Daley [facility] CPT-73502 Level 3 Est. Patient 09:20:13 DIVISION OPERATIONS MANAGER Piotr Daley [facility] CPT-00369 Level 3 Est. Patient 09:49:40 CDT Piotr Daley [facility] CPT-51816 Level 3 Est. Patient 16:28:11 CDT Piotr Daley [facility] CPT-91758 Level 3 Est. Patient 12:41:58 DIVISION OPERATIONS MANAGER Piotr Katie Daley [facility] CPT-76146 Level 3 Est. Patient 09:21:24 CDT Piotr Daley [facility] CPT-01733 Level 3 Est. Patient 09:21:11 CDT Piotr Daley [facility] CPT-20077 Level 3 Est. Patient 11:16:29 DIVISION OPERATIONS MANAGER Piotr Daley [facility] CPT-44358 Level 3 Est. Patient 18:40:19 DIVISION OPERATIONS MANAGER Piotr Daley [facility] CPT-55666 Level 3 Est. Patient 19:30:50 CDT Piotr Daley [facility] CPT-58372 Level 3 Est. Patient 22:06:44 CDT Katrina Rinaldi MD [facility] CPT-93451 Level 3 Est. Patient 14:20:00 CDT Piotr Daley [facility] CPT-75268 Level 3 Est. Patient 14:15:22 DIVISION OPERATIONS MANAGER Piotr Daley [facility] CPT-05988 Level 3 Est. Patient 20:19:57 DIVISION OPERATIONS MANAGER Piotr Daley [facility] CPT-09536 Level 3 Est. Patient 16:44:32 CDT Piotr Daley [facility] CPT-45937 Level 3 Est. 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 Patient 21:01:21 CDT Piotr Daley [facility] Procedures Code Procedure Name Date Entry Date Standard Description CPT-52207 PT/INR - LAB USE ONLY 13:49:20 CDT CPT-75158 Venipuncture Draw Fee 13:49:19 CDT CPT-49438 PT/INR - LAB USE ONLY 15:48:49 CDT CPT-97766 Venipuncture Draw Fee 15:48:49 CDT CPT-05918 Venipuncture Draw Fee 11:31:59 CDT CPT-77854 PT/INR - LAB USE ONLY 11:31:59 CDT CPT-21474 Venipuncture Draw Fee 13:29:15 CDT CPT-73224 Thoracolumbar AP/Lat 15:19:19 [employer]PERATIONS MANAGER CPT-G0438 Initial Annual Wellness Exam 12:18:54 [employer] OPERATIONS MANAGER CPT-44632 Knee 3V 09:57:38 CDT CPT-OV Office Visit 15:45:01 [employer]PERATIONS MANAGER CPT-76679 Abd compl w upright 17:10:25 CDT
--- OUTSIDE RECORDS SUMMARY | 2018-07-18 08:19 | XMS REPORT | Clinical Summary ---
Author Author Admin, YONG Organization [facility] Address Unknown Phone Unavailable Allergies, Adverse Reactions, [...] po tid with ES Tylenol TRAMADOL HCL 89011065503 Active Piotr Daley DO Active WARFARIN SODIUM 5 MG TABS 1 tablet daily except for Saturday and Sat 1/2 tablet. WARFARIN SODIUM 63918310365 Active Piotr Daley DO Active PREDNISONE 20 MG TAB 2 tablets today, then 1 tablet days 2 through 4 PREDNISONE 41206056405 No Longer Active Piotr Daley DO Active AZITHROMYCIN 250 MG TABS 2 po qd x 1 day, then 1 po qd x 4 days AZITHROMYCIN 76325857250 No Longer Active Piotr Daley DO Active IBUPROFEN 800 MG TABS 1 tab every 8 hours as needed IBUPROFEN 89730861378 No Longer Active Piotr Daley DO Active LOMOTIL 2.5-0.025 MG TAB 1 to 2 four times a day as needed for diarrhea 10/13 DIPHENOXYLATE-ATROPINE 52914627348 No Longer Active Piotr Daley DO Active WARFARIN SODIUM 4 MG TABS 1 tab every evening WARFARIN SODIUM 73723263634 No Longer Active Piotr Daley DO Active PREDNISONE 20 MG TAB 1 tablet twice daily for 2 days, then 1 tablet once daily for 2 days PREDNISONE 64558559328 No Longer Active Piotr Daley DO Active PROMETHAZINE HCL 25 MG TABS 1 four times a day as needed for nausea/vomiting PROMETHAZINE HCL 78910848709 No Longer Active Piotr Daley DO Active TUSSIONEX PENNKINETIC ER 10-8 MG/5ML LQCR 5ml po q12hr PRN Cough HYDROCOD POLST-CHLORPHEN POLST 57923665873 No Longer Active Piotr Daley DO Active AZITHROMYCIN 250 MG TABS 2 po qd x 1 day, then 1 po qd x 4 days AZITHROMYCIN 19788901407 No Longer Active Piotr Daley DO Active AZITHROMYCIN 250 MG TABS 2 po qd x 1 day, then 1 po qd x 4 days AZITHROMYCIN 83090299763 No Longer Active Piotr Daley DO Active LISINOPRIL-HYDROCHLOROTHIAZIDE 10-12.5 MG TABS 1 tab by mouth daily LISINOPRIL-HYDROCHLOROTHIAZIDE 21871624856 Active Hilary Ma MA Active LISINOPRIL 10 MG TABS 1/2-1 tab po every other day LISINOPRIL 94902114396 No Longer Active Piotr Daley DO Active VENTOLIN HFA 108 (90 BASE) MCG/ACT AERS 2 puffs four times a day PRN cough ALBUTEROL SULFATE 69136371234 No Longer Active Piotr Daley DO Active NYSTATIN-TRIAMCINOLONE 752651-8.1 UNIT/GM-% CREA Apply to area BID NYSTATIN-TRIAMCINOLONE 23654614826 No Longer Active Alena Jarvis Fan WILDLIFE PROTECTOR Active PHISOHEX 3 % LIQD Use Directed HEXACHLOROPHENE 03650423814 No Longer Active Sandra [place] Active AZITHROMYCIN 250 MG TABS 2 po qd x 1 day, then 1 po qd x 4 days AZITHROMYCIN 21477585965 No Longer Active Katrina Rinaldi MD PhD Active AZITHROMYCIN 250 MG TABS 2 po qd x 1 day, then 1 po qd x 4 days AZITHROMYCIN 58117782191 No Longer Active Piotr Daley DO Active AZITHROMYCIN 500 MG SOLR 1 po q day AZITHROMYCIN 18616552333 No Longer Active Piotr Daley DO Active NYSTATIN-TRIAMCINOLONE 174059-7.1 UNIT/GM-% CREA apply bid 08/19 NYSTATIN-TRIAMCINOLONE 97878577442 No Longer Active Piotr Daley DO Active IBUPROFEN 800 MG TABS 1 po q 8 hours prn pain sparinly IBUPROFEN 84145725256 No Longer Active Piotr Daley DO Active VITAMIN D3 5000 UNIT CAPS 1 po daily CHOLECALCIFEROL 77166660602 Active Piotr Daley DO Active IBUPROFEN 800 MG TABS 1 po q 8 hours prn pain sparinly IBUPROFEN 800 MG TABS 183932 IBUPROFEN Inactive NYSTATIN-TRIAMCINOLONE 222884-4.1 UNIT/GM-% CREA apply bid 08/19 NYSTATIN-TRIAMCINOLONE 762144-4.1 UNIT/GM-% CREA 6461921 NYSTATIN- TRIAMCINOLONE Inactive AZITHROMYCIN 500 MG SOLR 1 po q day AZITHROMYCIN 500 MG SOLR 30934426783 AZITHROMYCIN Inactive VENTOLIN HFA 108 (90 BASE) MCG/ACT AERS 2 puffs four times a day PRN cough VENTOLIN HFA 108 (90 BASE) MCG/ACT AERS ALBUTEROL SULFATE Inactive LISINOPRIL 10 MG TABS 1/2-1 tab po every other day LISINOPRIL 10 MG TABS 165943 LISINOPRIL Inactive TUSSIONEX PENNKINETIC ER 10-8 MG/5ML LQCR 5ml po q12hr PRN Cough TUSSIONEX PENNKINETIC ER 10-8 MG/5ML LQCR HYDROCOD POLST- CHLORPHEN POLST Inactive PROMETHAZINE HCL 25 MG TABS 1 four times a day as needed for nausea/vomiting PROMETHAZINE HCL 25 MG TABS 465499 PROMETHAZINE HCL Inactive PREDNISONE 20 MG TAB 1 tablet twice daily for 2 days, then 1 tablet once daily for 2 days PREDNISONE 20 MG TAB 830052 PREDNISONE Inactive WARFARIN SODIUM 4 MG TABS 1 tab every evening WARFARIN SODIUM 4 MG TABS 663074 WARFARIN SODIUM Inactive LOMOTIL 2.5-0.025 MG TAB 1 to 2 four times a day as needed for diarrhea 10/13 LOMOTIL 2.5-0.025 MG TAB 4622949 DIPHENOXYLATE-ATROPINE Inactive IBUPROFEN 800 MG TABS 1 tab every 8 hours as needed IBUPROFEN 800 MG TABS 556774 IBUPROFEN Inactive PREDNISONE 20 MG TAB 2 tablets today, then 1 tablet days 2 through 4 PREDNISONE 20 MG TAB 957755 PREDNISONE Inactive AZITHROMYCIN 250 MG TABS 2 po qd x 1 day, then 1 po qd x 4 days AZITHROMYCIN 250 MG TABS 3032843 AZITHROMYCIN Inactive AZITHROMYCIN 250 MG TABS 2 po qd x 1 day, then 1 po qd x 4 days AZITHROMYCIN 250 MG TABS 5048851 AZITHROMYCIN Inactive NYSTATIN-TRIAMCINOLONE 052197-6.1 UNIT/GM-% CREA Apply to area BID NYSTATIN-TRIAMCINOLONE 292725-8.1 UNIT/GM-% CREA 6988500 NYSTATIN-TRIAMCINOLONE Inactive AZITHROMYCIN 250 MG TABS 2 po qd x 1 day, then 1 po qd x 4 days AZITHROMYCIN 250 MG TABS 3352771 AZITHROMYCIN Inactive AZITHROMYCIN 250 MG TABS 2 po qd x 1 day, then 1 po qd x 4 days AZITHROMYCIN 250 MG TABS 3190875 AZITHROMYCIN Inactive AZITHROMYCIN 250 MG TABS 2 po qd x 1 day, then 1 po qd x 4 days AZITHROMYCIN 250 MG TABS 2362408 AZITHROMYCIN Inactive Advance Directives Directive Description Start [...] mg/g mg/g{creat} 0-29 sodium, serum 140 mmol/L 897-455 9394/07/17 potassium, serum 4.2 mmol/L 3.5-5.2 chloride, serum [...] 5.0-8.5 Encounters Code Encounter Date Provider Facility CPT-67104 Level 3 Est. Patient 15:14:31 FATBACK TRIMMER Piotr Wilson [facility] CPT-76094 Level 3 Est. Patient 09:20:13 FATBACK TRIMMER Piotr Daley [facility] CPT-97768 Level 3 Est. Patient 09:49:40 CDT Piotr Wilson [facility] CPT-23178 Level 3 Est. Patient 16:28:11 CDT Piotr Wilson [facility] CPT-21232 Level 3 Est. Patient 12:41:58 FATBACK TRIMMER Piotr Daley [facility] CPT-98394 Level 3 Est. Patient 09:21:24 CDT Piotr Wilson [facility] CPT-82813 Level 3 Est. Patient 09:21:11 CDT Piotr Wilson [facility] CPT-00923 Level 3 Est. Patient 11:16:29 FATBACK TRIMMER Piotr Daley [facility] CPT-39304 Level 3 Est. Patient 18:40:19 FATBACK TRIMMER Piotr Wilson [facility] CPT-96224 Level 3 Est. Patient 19:30:50 CDT Piotr W Edi [facility] CPT-43292 Level 3 Est. Patient 22:06:44 CDT Katrina Rinaldi MD [facility] CPT-55394 Level 3 Est. Patient 14:20:00 CDT Piotr Wilson Edi [facility] CPT-71322 Level 3 Est. Patient 14:15:22 FATBACK TRIMMER Piotr Daley [facility] CPT-23419 Level 3 Est. Patient 20:19:57 FATBACK TRIMMER Piotr Daley [facility] CPT-83573 Level 3 Est. Patient 16:44:32 CDT Piotr Wilson Edi [facility] CPT-67950 Level 3 Est. Patient 08:48:46 FATBACK TRIMMER Piotr Wilson [facility] CPT-38058 Level 3 Est. Patient 21:01:21 CDT Piotr Wilson [facility] Procedures Code Procedure Name Date Entry Date Standard Description CPT-24737 Thoracolumbar AP/Lat 15:19:19 FATBACK TRIMMER CPT-G0438 Initial Annual Wellness Exam 12:18:54 FATBACK TRIMMER CPT-85330 Knee 3V 09:57:38 CDT CPT-OV Office Visit 15:45:01 FATBACK TRIMMER CPT-34894 Abd compl w upright 17:10:25 CDT
--- OUTSIDE RECORDS SUMMARY | 2018-07-18 08:19 | XMS REPORT | Clinical Summary ---
Author Author Admin, [employer] Organization [employer] Address Unknown Phone Unavailable Allergies, Adverse Reactions, [...] neoplasm of prostate V10.46 Active Alina Meyers METHODS SPECIALIST Personal history of malignant neoplasm of prostate Coronary artery disease 414.00 Active Alina Meyers APRN Coronary atherosclerosis of unspecified type of vessel, hoh or graft Back pain, thoracic region, left [...] po q hs for nerve pain GABAPENTIN 41603024568 Active Piotr Daley DO Active WARFARIN SODIUM 5 MG TABS 1 tablet daily WARFARIN SODIUM 04415298554 Active Simi Meyers Active TRAMADOL HCL 50 MG TABS 1 po tid with ES Tylenol TRAMADOL HCL 78500975513 Active Piotr Daley DO Active PREDNISONE 20 MG TAB 2 tablets today, then 1 tablet days 2 through 4 PREDNISONE 44872280626 No Longer Active Piotr Daley DO Active AZITHROMYCIN 250 MG TABS 2 po qd x 1 day, then 1 po qd x 4 days AZITHROMYCIN 93335577025 No Longer Active Piotr Daley DO Active IBUPROFEN 800 MG TABS 1 tab every 8 hours as needed IBUPROFEN 35235595159 No Longer Active Piotr Daley DO Active LOMOTIL 2.5-0.025 MG TAB 1 to 2 four times a day as needed for diarrhea 10/13 DIPHENOXYLATE-ATROPINE 39044537299 No Longer Active Piotr Daley DO Active WARFARIN SODIUM 4 MG TABS 1 tab every evening WARFARIN SODIUM 08206938674 No Longer Active Piotr Daley DO Active PREDNISONE 20 MG TAB 1 tablet twice daily for 2 days, then 1 tablet once daily for 2 days PREDNISONE 24176905668 No Longer Active Piotr Daley DO Active PROMETHAZINE HCL 25 MG TABS 1 four times a day as needed for nausea/vomiting PROMETHAZINE HCL 07959608441 No Longer Active Piotr Daley DO Active TUSSIONEX PENNKINETIC ER 10-8 MG/5ML LQCR 5ml po q12hr PRN Cough HYDROCOD POLST-CHLORPHEN POLST 09319594698 No Longer Active Piotr Daley DO Active AZITHROMYCIN 250 MG TABS 2 po qd x 1 day, then 1 po qd x 4 days AZITHROMYCIN 86850806730 No Longer Active Piotr Daley DO Active AZITHROMYCIN 250 MG TABS 2 po qd x 1 day, then 1 po qd x 4 days AZITHROMYCIN 59063987911 No Longer Active Piotr Daley DO Active LISINOPRIL-HYDROCHLOROTHIAZIDE 10-12.5 MG TABS 1 tab by mouth daily LISINOPRIL-HYDROCHLOROTHIAZIDE 25123628769 Active Hilary Ma MA Active LISINOPRIL 10 MG TABS 1/2-1 tab po every other day LISINOPRIL 82278128078 No Longer Active Piotr Daley DO Active VENTOLIN HFA 108 (90 BASE) MCG/ACT AERS 2 puffs four times a day PRN cough ALBUTEROL SULFATE 06600141059 No Longer Active Piotr Daley DO Active NYSTATIN-TRIAMCINOLONE 042613-6.1 UNIT/GM-% CREA Apply to area BID NYSTATIN-TRIAMCINOLONE 03717504920 No Longer Active Alena Chavira GOVERNMENT PROPERTY INSPECTOR Active PHISOHEX 3 % LIQD Use Directed HEXACHLOROPHENE 48201086383 No Longer Active Sandra [place] Active AZITHROMYCIN 250 MG TABS 2 po qd x 1 day, then 1 po qd x 4 days AZITHROMYCIN 90329570896 No Longer Active Katrina Rinaldi MD PhD Active AZITHROMYCIN 250 MG TABS 2 po qd x 1 day, then 1 po qd x 4 days AZITHROMYCIN 25679353355 No Longer Active Piotr Daley DO Active AZITHROMYCIN 500 MG SOLR 1 po q day AZITHROMYCIN 81799517358 No Longer Active Piotr Daley DO Active NYSTATIN-TRIAMCINOLONE 893140-0.1 UNIT/GM-% CREA apply bid 08/19 NYSTATIN-TRIAMCINOLONE 31127380928 No Longer Active Piotr Daley DO Active IBUPROFEN 800 MG TABS 1 po q 8 hours prn pain sparinly IBUPROFEN 02921681645 No Longer Active Piotr Daley DO Active VITAMIN D3 5000 UNIT CAPS 1 po daily CHOLECALCIFEROL 68156123532 Active Piotr Daley DO Active IBUPROFEN 800 MG TABS 1 po q 8 hours prn pain sparinly IBUPROFEN 800 MG TABS 904477 IBUPROFEN Inactive NYSTATIN-TRIAMCINOLONE 843182-3.1 UNIT/GM-% CREA apply bid 08/19 NYSTATIN-TRIAMCINOLONE 950543-6.1 UNIT/GM-% CREA 6664420 NYSTATIN- TRIAMCINOLONE Inactive AZITHROMYCIN 500 MG SOLR 1 po q day AZITHROMYCIN 500 MG SOLR 28900222020 AZITHROMYCIN Inactive VENTOLIN HFA 108 (90 BASE) MCG/ACT AERS 2 puffs four times a day PRN cough VENTOLIN HFA 108 (90 BASE) MCG/ACT AERS ALBUTEROL SULFATE Inactive LISINOPRIL 10 MG TABS 1/2-1 tab po every other day LISINOPRIL 10 MG TABS 403275 LISINOPRIL Inactive TUSSIONEX PENNKINETIC ER 10-8 MG/5ML LQCR 5ml po q12hr PRN Cough TUSSIONEX PENNKINETIC ER 10-8 MG/5ML LQCR HYDROCOD POLST- CHLORPHEN POLST Inactive PROMETHAZINE HCL 25 MG TABS 1 four times a day as needed for nausea/vomiting PROMETHAZINE HCL 25 MG TABS 762126 PROMETHAZINE HCL Inactive PREDNISONE 20 MG TAB 1 tablet twice daily for 2 days, then 1 tablet once daily for 2 days PREDNISONE 20 MG TAB 567087 PREDNISONE Inactive WARFARIN SODIUM 4 MG TABS 1 tab every evening WARFARIN SODIUM 4 MG TABS 893063 WARFARIN SODIUM Inactive LOMOTIL 2.5-0.025 MG TAB 1 to 2 four times a day as needed for diarrhea 10/13 LOMOTIL 2.5-0.025 MG TAB 6900491 DIPHENOXYLATE-ATROPINE Inactive IBUPROFEN 800 MG TABS 1 tab every 8 hours as needed IBUPROFEN 800 MG TABS 798459 IBUPROFEN Inactive PREDNISONE 20 MG TAB 2 tablets today, then 1 tablet days 2 through 4 PREDNISONE 20 MG TAB 743711 PREDNISONE Inactive AZITHROMYCIN 250 MG TABS 2 po qd x 1 day, then 1 po qd x 4 days AZITHROMYCIN 250 MG TABS 9637362 AZITHROMYCIN Inactive AZITHROMYCIN 250 MG TABS 2 po qd x 1 day, then 1 po qd x 4 days AZITHROMYCIN 250 MG TABS 8191644 AZITHROMYCIN Inactive NYSTATIN-TRIAMCINOLONE 822123-5.1 UNIT/GM-% CREA Apply to area BID NYSTATIN-TRIAMCINOLONE 290699-3.1 UNIT/GM-% CREA 1595733 NYSTATIN-TRIAMCINOLONE Inactive AZITHROMYCIN 250 MG TABS 2 po qd x 1 day, then 1 po qd x 4 days AZITHROMYCIN 250 MG TABS 5296307 AZITHROMYCIN Inactive AZITHROMYCIN 250 MG TABS 2 po qd x 1 day, then 1 po qd x 4 days AZITHROMYCIN 250 MG TABS 7379083 AZITHROMYCIN Inactive AZITHROMYCIN 250 MG TABS 2 po qd x 1 day, then 1 po qd x 4 days AZITHROMYCIN 250 MG TABS 5543508 AZITHROMYCIN Inactive Advance Directives Directive Description Start [...] Range Description Lab Report: CBC - Hematology mean corpuscular volume, RBC 84 fL 80-97 mean corpuscular hemoglobin, RBC 28.4 pg 27.0-31.2 mean corpuscular hemoglobin concentration, RBC 33.9 G/DL % 31.8- 35.4 red blood cell distribution width 15.0 % 11.6-14.8 platelet count 210 10^3/MM^3 10*3/mm3 542-875 3140/02/09 leukocyte count, blood 5.2 10^3/MM^3 10*3/mm3 4.6-10.2 erythrocyte (RBC) count 5.20 10^6/MM^3 10*6/mm3 4.69-6.13 hemoglobin, blood 14.8 g/dL 13.5-17.5 hematocrit, blood 43.6 % 41.0-53.0 Lab Report: Comp. Metabolic Panel - Chemistry sodium, serum 141 mmol/L 252-116 7616/06/28 potassium, serum 4.2 mmol/L 3.5-5.2 chloride, serum 104 mmol/L 98-107 blood glucose 94 mg/dL 65-110 urea nitrogen, blood 15 mg/dL 7-18 creatinine, serum 1.08 mg/dL 0.55-1.30 alanine aminotransferase (SGPT), serum 25 U/L 12-78 aspartate aminotransferase (SGOT), serum 26 U/L 15-37 calcium, serum 8.7 mg/dL 8.5-10.1 bilirubin, serum, total 0.50 mg/dL 0.00-1.00 carbon dioxide, venous blood 31.0 mmol/L 21.0-32.0 Lab Report: Creatinine - Chemistry creatinine, serum [...] Prothrombin Time - Coagulation prothrombin time (patient) 19.8 SECS s 11.1-13.4 international normalized ratio (INR) 2.3 1.0-3.5 prothrombin time (patient) 16.6 SECS s 11.1-13.4 international normalized ratio (INR) 1.9 1.0-3.5 prothrombin time (patient) 18.3 SECS s 11.1-13.4 international normalized ratio (INR) 2.3 1.0-3.5 prothrombin time (patient) 15.4 SECS s 11.1-13.4 international normalized ratio (INR) 1.7 1.0-3.5 international normalized ratio (INR) 2.4 1.0-3.5 prothrombin time (patient) 23.1 SECS s 11.1-13.4 international normalized ratio (INR) 3.0 1.0-3.5 prothrombin time (patient) 18.9 SECS s 11.1-13.4 prothrombin time (patient) 22.8 SECS s 11.1-13.4 international normalized ratio (INR) 3.0 1.0-3.5 prothrombin time (patient) 20.8 SECS s 11.1-13.4 international normalized ratio (INR) 2.5 1.0-3.5 international normalized ratio (INR) 2.2 1.0-3.5 prothrombin time (patient) 18.1 SECS s 11.1-13.4 international normalized ratio (INR) 3.2 1.0-3.5 prothrombin time (patient) 23.8 SECS s 11.1-13.4 Lab Report: UADIP W/MICRO, AUTO - Chemistry RBC, urine, dipstick Negative Negative protein, total urine random Negative mg/dL Negative Lab Report: UADIP W/MICRO, AUTO - Urinalysis pH, urine, semiquantitative 6.0 5.0-8.5 specific gravity, urine 1.025 1.000-1.030 appearance, urine Clear Clear urine color Yellow Colorless;Lightyellow;Straw;Yellow urobilinogen, urine, semiquantitative (dipstick) 0.2 Normal leukocyte esterase, urine, by dipstick Negative Negative nitrite, urine, semiquantitative Negative Negative glucose, urine, semiquantitative Negative Negative ketones, urine, by test strip Negative Negative bilirubin, urine Negative Negative Encounters Code Encounter Date Provider Facility CPT-66739 Level 4 Est. Patient 17:15:07 EMPLOYMENT TRAINING SPECIALIST Piotr Daley [facility] CPT-73688 Level 3 Est. Patient 12:46:13 EMPLOYMENT TRAINING SPECIALIST Piotr Daley [facility] CPT-13735 Level 3 Est. Patient 15:14:31 EMPLOYMENT TRAINING SPECIALIST Piotr Daley [facility] CPT-64235 Level 3 Est. Patient 09:20:13 EMPLOYMENT TRAINING SPECIALIST Piotr Katie Edi [facility] CPT-94261 Level 3 Est. Patient 09:49:40 CDT Piotr Katie Edi [facility] CPT-57404 Level 3 Est. Patient 16:28:11 CDT Piotr Katie Edi [facility] CPT-24214 Level 3 Est. Patient 12:41:58 EMPLOYMENT TRAINING SPECIALIST Piotr Daley [facility] CPT-32932 Level 3 Est. Patient 09:21:24 CDT Piotr Wilson [facility] CPT-50637 Level 3 Est. Patient 09:21:11 CDT Piotr Daley [facility] CPT-74187 Level 3 Est. Patient 11:16:29 EMPLOYMENT TRAINING SPECIALIST Piotr Daley [facility] CPT-99863 Level 3 Est. Patient 18:40:19 EMPLOYMENT TRAINING SPECIALIST Piotr Daley [facility] CPT-78687 Level 3 Est. Patient 19:30:50 CDT Piotr Daley [facility] CPT-43813 Level 3 Est. Patient 22:06:44 CDT Katrina Rinaldi MD [facility] CPT-39178 Level 3 Est. Patient 14:20:00 CDT Piotr Daley [facility] CPT-61024 Level 3 Est. Patient 14:15:22 EMPLOYMENT TRAINING SPECIALIST Piotr Daley [facility] CPT-54482 Level 3 Est. Patient 20:19:57 EMPLOYMENT TRAINING SPECIALIST Piotr Daley [facility] CPT-75054 Level 3 Est. Patient 16:44:32 CDT Piotr Daley [facility] CPT-67016 Level 3 Est. Patient 08:48:46 EMPLOYMENT TRAINING SPECIALIST Piotr Daley [facility] CPT-82784 Level 3 Est. Patient 21:01:21 CDT Piotr Daley [facility] Procedures Code Procedure Name Date Entry Date Standard Description CPT-83725 Creatinine - LAB USE ONLY 14:37:55 EMPLOYMENT TRAINING SPECIALIST CPT-81717 PT/INR - LAB USE ONLY 14:37:55 EMPLOYMENT TRAINING SPECIALIST CPT-24641 Venipuncture Draw Fee 14:37:55 EMPLOYMENT TRAINING SPECIALIST CPT-36655 LS spine comp w obliques - XRAY USE ONLY 12:59:25 EMPLOYMENT TRAINING SPECIALIST CPT-20155 PT/INR - LAB USE ONLY 13:49:20 CDT CPT-77968 Venipuncture Draw Fee 13:49:19 CDT CPT-59535 PT/INR - LAB USE ONLY 15:48:49 CDT CPT-68899 Venipuncture Draw Fee 15:48:49 CDT CPT-53919 Venipuncture Draw Fee 11:31:59 CDT CPT-31257 PT/INR - LAB USE ONLY 11:31:59 CDT CPT-38647 Venipuncture Draw Fee 13:29:15 CDT CPT-71005 Thoracolumbar AP/Lat 15:19:19 EMPLOYMENT TRAINING SPECIALIST CPT-G0438 Initial Annual Wellness Exam 12:18:54 EMPLOYMENT TRAINING SPECIALIST CPT-33603 Knee 3V 09:57:38 CDT CPT-OV Office Visit 15:45:01 EMPLOYMENT TRAINING SPECIALIST CPT-14230 Abd compl w upright 17:10:25 CDT
--- OUTSIDE RECORDS SUMMARY | 2018-07-18 08:20 | XMS REPORT | Clinical Summary ---
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 WARFARIN SODIUM 42512465320 Active Hilary Ma MA Active PREDNISONE 20 MG TAB 2 tablets today, then 1 tablet days 2 through 4 PREDNISONE 39787274153 No Longer Active Piotr Daley DO Active AZITHROMYCIN 250 MG TABS 2 po qd x 1 day, then 1 po qd x 4 days AZITHROMYCIN 46789186385 No Longer Active Piotr Daley DO Active IBUPROFEN 800 MG TABS 1 tab every 8 hours as needed IBUPROFEN 98963669480 No Longer Active Piotr Daley DO Active LOMOTIL 2.5-0.025 MG TAB 1 to 2 four times a day as needed for diarrhea 10/13 DIPHENOXYLATE-ATROPINE 09093697307 No Longer Active Piotr Daley DO Active WARFARIN SODIUM 4 MG TABS 1 tab every evening WARFARIN SODIUM 90970241545 No Longer Active Piotr Daley DO Active PREDNISONE 20 MG TAB 1 tablet twice daily for 2 days, then 1 tablet once daily for 2 days PREDNISONE 96243306135 No Longer Active Piotr Daley DO Active PROMETHAZINE HCL 25 MG TABS 1 four times a day as needed for nausea/vomiting PROMETHAZINE HCL 58858730231 No Longer Active Piotr Daley DO Active TUSSIONEX PENNKINETIC ER 10-8 MG/5ML LQCR 5ml po q12hr PRN Cough HYDROCOD POLST-CHLORPHEN POLST 75175901678 No Longer Active Piotr Daley DO Active AZITHROMYCIN 250 MG TABS 2 po qd x 1 day, then 1 po qd x 4 days AZITHROMYCIN 98204508346 No Longer Active Piotr Daley DO Active AZITHROMYCIN 250 MG TABS 2 po qd x 1 day, then 1 po qd x 4 days AZITHROMYCIN 73243997688 No Longer Active Piotr Daley DO Active LISINOPRIL-HYDROCHLOROTHIAZIDE 10-12.5 MG TABS 1 tab by mouth daily LISINOPRIL-HYDROCHLOROTHIAZIDE 03714707427 Active Hilary Ma MA Active LISINOPRIL 10 MG TABS 1/2-1 tab po every other day LISINOPRIL 25252267785 No Longer Active Piotr Daley DO Active VENTOLIN HFA 108 (90 BASE) MCG/ACT AERS 2 puffs four times a day PRN cough ALBUTEROL SULFATE 92641692773 No Longer Active Piotr Daley DO Active NYSTATIN-TRIAMCINOLONE 790360-8.1 UNIT/GM-% CREA Apply to area BID NYSTATIN-TRIAMCINOLONE 28968390252 No Longer Active Alena Chavira BRICK AND TILE MAKING MACHINE OPERATOR Active PHISOHEX 3 % LIQD Use Directed HEXACHLOROPHENE 36613170961 No Longer Active Sandra [place] Active AZITHROMYCIN 250 MG TABS 2 po qd x 1 day, then 1 po qd x 4 days AZITHROMYCIN 57965289432 No Longer Active Katrina Rinaldi MD PhD Active AZITHROMYCIN 250 MG TABS 2 po qd x 1 day, then 1 po qd x 4 days AZITHROMYCIN 92233923095 No Longer Active Piotr Daley DO Active AZITHROMYCIN 500 MG SOLR 1 po q day AZITHROMYCIN 58581285441 No Longer Active Piotr Daley DO Active NYSTATIN-TRIAMCINOLONE 712886-9.1 UNIT/GM-% CREA apply bid 08/19 NYSTATIN-TRIAMCINOLONE 94411541464 No Longer Active Piotr W Edi DO Active IBUPROFEN 800 MG TABS 1 po q 8 hours prn pain sparinly IBUPROFEN 09933245309 No Longer Active Piotr Daley DO Active VITAMIN D3 5000 UNIT CAPS 1 po daily CHOLECALCIFEROL 64614021210 Active Piotr Wilson Edi DO Active IBUPROFEN 800 MG TABS 1 po q 8 hours prn pain sparinly IBUPROFEN 800 MG TABS 905732 IBUPROFEN Inactive NYSTATIN-TRIAMCINOLONE 896126-6.1 UNIT/GM-% CREA apply bid 08/19 NYSTATIN-TRIAMCINOLONE 199493-7.1 UNIT/GM-% CREA 7332200 NYSTATIN- TRIAMCINOLONE Inactive AZITHROMYCIN 500 MG SOLR 1 po q day AZITHROMYCIN 500 MG SOLR 73295473301 AZITHROMYCIN Inactive VENTOLIN HFA 108 (90 BASE) MCG/ACT AERS 2 puffs four times a day PRN cough VENTOLIN HFA 108 (90 BASE) MCG/ACT AERS ALBUTEROL SULFATE Inactive LISINOPRIL 10 MG TABS 1/2-1 tab po every other day LISINOPRIL 10 MG TABS 685820 LISINOPRIL Inactive TUSSIONEX PENNKINETIC ER 10-8 MG/5ML LQCR 5ml po q12hr PRN Cough TUSSIONEX PENNKINETIC ER 10-8 MG/5ML LQCR HYDROCOD POLST- CHLORPHEN POLST Inactive PROMETHAZINE HCL 25 MG TABS 1 four times a day as needed for nausea/vomiting PROMETHAZINE HCL 25 MG TABS 836391 PROMETHAZINE HCL Inactive PREDNISONE 20 MG TAB 1 tablet twice daily for 2 days, then 1 tablet once daily for 2 days PREDNISONE 20 MG TAB 396313 PREDNISONE Inactive WARFARIN SODIUM 4 MG TABS 1 tab every evening WARFARIN SODIUM 4 MG TABS 216075 WARFARIN SODIUM Inactive LOMOTIL 2.5-0.025 MG TAB 1 to 2 four times a day as needed for diarrhea 10/13 LOMOTIL 2.5-0.025 MG TAB 0356539 DIPHENOXYLATE-ATROPINE Inactive IBUPROFEN 800 MG TABS 1 tab every 8 hours as needed IBUPROFEN 800 MG TABS 045011 IBUPROFEN Inactive PREDNISONE 20 MG TAB 2 tablets today, then 1 tablet days 2 through 4 PREDNISONE 20 MG TAB 992007 PREDNISONE Inactive AZITHROMYCIN 250 MG TABS 2 po qd x 1 day, then 1 po qd x 4 days AZITHROMYCIN 250 MG TABS 1910720 AZITHROMYCIN Inactive AZITHROMYCIN 250 MG TABS 2 po qd x 1 day, then 1 po qd x 4 days AZITHROMYCIN 250 MG TABS 6374629 AZITHROMYCIN Inactive NYSTATIN-TRIAMCINOLONE 548687-6.1 UNIT/GM-% CREA Apply to area BID NYSTATIN-TRIAMCINOLONE 289538-0.1 UNIT/GM-% CREA 7837168 NYSTATIN-TRIAMCINOLONE Inactive AZITHROMYCIN 250 MG TABS 2 po qd x 1 day, then 1 po qd x 4 days AZITHROMYCIN 250 MG TABS 7077190 AZITHROMYCIN Inactive AZITHROMYCIN 250 MG TABS 2 po qd x 1 day, then 1 po qd x 4 days AZITHROMYCIN 250 MG TABS 7699380 AZITHROMYCIN Inactive AZITHROMYCIN 250 MG TABS 2 po qd x 1 day, then 1 po qd x 4 days AZITHROMYCIN 250 MG TABS 2696758 AZITHROMYCIN Inactive Advance Directives Directive Description Start [...] mg/g mg/g{creat} 0-29 sodium, serum 140 mmol/L 400-226 0187/07/17 potassium, serum 4.2 mmol/L 3.5-5.2 chloride, serum [...] 5.0-8.5 Encounters Code Encounter Date Provider Facility CPT-05054 Level 3 Est. Patient 15:14:31 FAST FOOD CREW LEAD Piotr Daley DO [facility] CPT-42703 Level 3 Est. Patient 09:20:13 FAST FOOD CREW LEAD Piotr Daley [facility] CPT-00144 Level 3 Est. Patient 09:49:40 CDT Piotr Daley [facility] CPT-96641 Level 3 Est. Patient 16:28:11 CDT Piotr Daley [facility] CPT-24400 Level 3 Est. Patient 12:41:58 FAST FOOD CREW LEAD Piotr Daley [facility] CPT-81893 Level 3 Est. Patient 09:21:24 CDT Piotr Daley [facility] CPT-85988 Level 3 Est. Patient 09:21:11 CDT Piotr Daley [facility] CPT-76831 Level 3 Est. Patient 11:16:29 FAST FOOD CREW LEAD Piotr Daley [facility] CPT-35051 Level 3 Est. Patient 18:40:19 FAST FOOD CREW LEAD Piotr Daley [facility] CPT-73933 Level 3 Est. Patient 19:30:50 CDT Piotr Daley [facility] CPT-11575 Level 3 Est. Patient 22:06:44 CDT Katrina Rinaldi MD [facility] CPT-13157 Level 3 Est. Patient 14:20:00 CDT Piotr Daley [facility] CPT-88628 Level 3 Est. Patient 14:15:22 FAST FOOD CREW LEAD Piotr Daley [facility] CPT-75370 Level 3 Est. Patient 20:19:57 FAST FOOD CREW LEAD Piotr Daley [facility] CPT-79648 Level 3 Est. Patient 16:44:32 CDT Piotr Katie Daley [facility] CPT-07586 Level 3 Est. Patient 08:48:46 FAST FOOD CREW LEAD Piotr Wilson [facility] CPT-36959 Level 3 Est. Patient 21:01:21 CDT Piotr Katie Edi [facility] Procedures Code Procedure Name Date Entry Date Standard Description CPT-04664 Thoracolumbar AP/Lat 15:19:19 FAST FOOD CREW LEAD CPT-G0438 Initial Annual Wellness Exam 12:18:54 FAST FOOD CREW LEAD CPT-15350 Knee 3V 09:57:38 CDT CPT-OV Office Visit 15:45:01 FAST FOOD CREW LEAD CPT-47275 Abd compl w upright 17:10:25 CDT
[2018-07-18] MEDS ORDERED: NEOSTIGMINE 1 MG/ML 5 ML SYRINGE ONE (08:21)
[2018-07-18] MEDS ORDERED: GLYCOPYRROLATE 0.2 MG/ML (ROBINUL) 2 ML VIAL ONE (08:21)
--- OUTSIDE RECORDS SUMMARY | 2018-07-18 08:21 | XMS REPORT | Clinical Summary ---
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 Personal history of malignant neoplasm of prostate Coronary artery disease 414.00 Active Alina Meyers APRN Coronary atherosclerosis of unspecified type of vessel, [place] or graft Back pain, thoracic region, [...] po q hs for nerve pain GABAPENTIN 19100273965 Active Piotr Daley DO Active WARFARIN SODIUM 5 MG TABS 1 tablet daily WARFARIN SODIUM 07954982003 Active Simi Meyers Active TRAMADOL HCL 50 MG TABS 1 po tid with ES Tylenol TRAMADOL HCL 89165115802 Active Piotr Daley DO Active PREDNISONE 20 MG TAB 2 tablets today, then 1 tablet days 2 through 4 PREDNISONE 86500369843 No Longer Active Piotr Daley DO Active AZITHROMYCIN 250 MG TABS 2 po qd x 1 day, then 1 po qd x 4 days AZITHROMYCIN 30891322982 No Longer Active Piotr Daley DO Active IBUPROFEN 800 MG TABS 1 tab every 8 hours as needed IBUPROFEN 61008616234 No Longer Active Piotr Daley DO Active LOMOTIL 2.5-0.025 MG TAB 1 to 2 four times a day as needed for diarrhea 10/13 DIPHENOXYLATE-ATROPINE 99517264246 No Longer Active Piotr Daley DO Active WARFARIN SODIUM 4 MG TABS 1 tab every evening WARFARIN SODIUM 00264967513 No Longer Active Piotr Daley DO Active PREDNISONE 20 MG TAB 1 tablet twice daily for 2 days, then 1 tablet once daily for 2 days PREDNISONE 22150750443 No Longer Active Pitor Daley DO Active PROMETHAZINE HCL 25 MG TABS 1 four times a day as needed for nausea/vomiting PROMETHAZINE HCL 27316331378 No Longer Active Piotr Daley DO Active TUSSIONEX PENNKINETIC ER 10-8 MG/5ML LQCR 5ml po q12hr PRN Cough HYDROCOD POLST-CHLORPHEN POLST 72669040944 No Longer Active Piotr Daley DO Active AZITHROMYCIN 250 MG TABS 2 po qd x 1 day, then 1 po qd x 4 days AZITHROMYCIN 70709665289 No Longer Active Piotr Daley DO Active AZITHROMYCIN 250 MG TABS 2 po qd x 1 day, then 1 po qd x 4 days AZITHROMYCIN 08574157331 No Longer Active Piotr Daley DO Active LISINOPRIL-HYDROCHLOROTHIAZIDE 10-12.5 MG TABS 1 tab by mouth daily LISINOPRIL-HYDROCHLOROTHIAZIDE 95126321640 Active Hilary Ma MA Active LISINOPRIL 10 MG TABS 1/2-1 tab po every other day LISINOPRIL 25836928329 No Longer Active Piotr Daley DO Active VENTOLIN HFA 108 (90 BASE) MCG/ACT AERS 2 puffs four times a day PRN cough ALBUTEROL SULFATE 23992810968 No Longer Active Piotr Daley DO Active NYSTATIN-TRIAMCINOLONE 729076-3.1 UNIT/GM-% CREA Apply to area BID NYSTATIN-TRIAMCINOLONE 66055930827 No Longer Active Alena Chavira COMMUNITY RELATIONS DIRECTOR Active PHISOHEX 3 % LIQD Use Directed HEXACHLOROPHENE 48709524093 No Longer Active Sandra [place] Active AZITHROMYCIN 250 MG TABS 2 po qd x 1 day, then 1 po qd x 4 days AZITHROMYCIN 65060699995 No Longer Active Katrina Rinaldi MD PhD Active AZITHROMYCIN 250 MG TABS 2 po qd x 1 day, then 1 po qd x 4 days AZITHROMYCIN 72792081784 No Longer Active Piotr Daley DO Active AZITHROMYCIN 500 MG SOLR 1 po q day AZITHROMYCIN 06331008360 No Longer Active Piotr Daley DO Active NYSTATIN-TRIAMCINOLONE 989435-6.1 UNIT/GM-% CREA apply bid 08/19 NYSTATIN-TRIAMCINOLONE 72467133749 No Longer Active Piotr Daley DO Active IBUPROFEN 800 MG TABS 1 po q 8 hours prn pain sparinly IBUPROFEN 11170147886 No Longer Active Piotr Daley DO Active VITAMIN D3 5000 UNIT CAPS 1 po daily CHOLECALCIFEROL 54549654461 Active Piotr Daley DO Active IBUPROFEN 800 MG TABS 1 po q 8 hours prn pain sparinly IBUPROFEN 800 MG TABS 885233 IBUPROFEN Inactive NYSTATIN-TRIAMCINOLONE 670218-6.1 UNIT/GM-% CREA apply bid 08/19 NYSTATIN-TRIAMCINOLONE 703141-7.1 UNIT/GM-% CREA 9479487 NYSTATIN- TRIAMCINOLONE Inactive AZITHROMYCIN 500 MG SOLR 1 po q day AZITHROMYCIN 500 MG SOLR 67301784457 AZITHROMYCIN Inactive VENTOLIN HFA 108 (90 BASE) MCG/ACT AERS 2 puffs four times a day PRN cough VENTOLIN HFA 108 (90 BASE) MCG/ACT AERS ALBUTEROL SULFATE Inactive LISINOPRIL 10 MG TABS 1/2-1 tab po every other day LISINOPRIL 10 MG TABS 399074 LISINOPRIL Inactive TUSSIONEX PENNKINETIC ER 10-8 MG/5ML LQCR 5ml po q12hr PRN Cough TUSSIONEX PENNKINETIC ER 10-8 MG/5ML LQCR HYDROCOD POLST- CHLORPHEN POLST Inactive PROMETHAZINE HCL 25 MG TABS 1 four times a day as needed for nausea/vomiting PROMETHAZINE HCL 25 MG TABS 441242 PROMETHAZINE HCL Inactive PREDNISONE 20 MG TAB 1 tablet twice daily for 2 days, then 1 tablet once daily for 2 days PREDNISONE 20 MG TAB 699817 PREDNISONE Inactive WARFARIN SODIUM 4 MG TABS 1 tab every evening WARFARIN SODIUM 4 MG TABS 572032 WARFARIN SODIUM Inactive LOMOTIL 2.5-0.025 MG TAB 1 to 2 four times a day as needed for diarrhea 10/13 LOMOTIL 2.5-0.025 MG TAB 7174049 DIPHENOXYLATE-ATROPINE Inactive IBUPROFEN 800 MG TABS 1 tab every 8 hours as needed IBUPROFEN 800 MG TABS 799891 IBUPROFEN Inactive PREDNISONE 20 MG TAB 2 tablets today, then 1 tablet days 2 through 4 PREDNISONE 20 MG TAB 343217 PREDNISONE Inactive AZITHROMYCIN 250 MG TABS 2 po qd x 1 day, then 1 po qd x 4 days AZITHROMYCIN 250 MG TABS 0299841 AZITHROMYCIN Inactive AZITHROMYCIN 250 MG TABS 2 po qd x 1 day, then 1 po qd x 4 days AZITHROMYCIN 250 MG TABS 1831202 AZITHROMYCIN Inactive NYSTATIN-TRIAMCINOLONE 444941-7.1 UNIT/GM-% CREA Apply to area BID NYSTATIN-TRIAMCINOLONE 465858-9.1 UNIT/GM-% CREA 3321468 NYSTATIN-TRIAMCINOLONE Inactive AZITHROMYCIN 250 MG TABS 2 po qd x 1 day, then 1 po qd x 4 days AZITHROMYCIN 250 MG TABS 7879069 AZITHROMYCIN Inactive AZITHROMYCIN 250 MG TABS 2 po qd x 1 day, then 1 po qd x 4 days AZITHROMYCIN 250 MG TABS 8670480 AZITHROMYCIN Inactive AZITHROMYCIN 250 MG TABS 2 po qd x 1 day, then 1 po qd x 4 days AZITHROMYCIN 250 MG TABS 1014519 AZITHROMYCIN Inactive Advance Directives Directive Description Start [...] Panel - Chemistry sodium, serum 141 mmol/L 129-612 2666/06/28 carbon dioxide, venous blood 31.0 mmol/L 21.0-32.0 [...] Negative Encounters Code Encounter Date Provider Facility CPT-07395 Level 4 Est. Patient 17:15:07 SEISMIC PROSPECTING SUPERVISOR Piotr Wilson Edi [facility] CPT-74336 Level 3 Est. Patient 12:46:13 SEISMIC PROSPECTING SUPERVISOR Piotr Daley [facility] CPT-49931 Level 3 Est. Patient 15:14:31 SEISMIC PROSPECTING SUPERVISOR Piotr Wilson Edi [facility] CPT-90827 Level 3 Est. Patient 09:20:13 SEISMIC PROSPECTING SUPERVISOR Piotr Wilson Edi [facility] CPT-68808 Level 3 Est. Patient 09:49:40 CDT Piotr Daley [facility] CPT-85936 Level 3 Est. Patient 16:28:11 CDT Piotr Katie Edi [facility] CPT-44608 Level 3 Est. Patient 12:41:58 SEISMIC PROSPECTING SUPERVISOR Piotr Wilson Edi [facility] CPT-73272 Level 3 Est. Patient 09:21:24 CDT Piotr Wilson Edi [facility] CPT-78957 Level 3 Est. Patient 09:21:11 CDT Piotr Katie [facility] CPT-67791 Level 3 Est. Patient 11:16:29 SEISMIC PROSPECTING SUPERVISOR Piotr Wilson Edi [facility] CPT-56690 Level 3 Est. Patient 18:40:19 SEISMIC PROSPECTING SUPERVISOR Piotr Daley [facility] CPT-23347 Level 3 Est. Patient 19:30:50 CDT Piotr Daley [facility] CPT-60804 Level 3 Est. Patient 22:06:44 CDT Katrina Rinaldi MD PhD [facility]-23954 Level 3 Est. Patient 14:20:00 CDT Piotr Daley [facility] CPT-89009 Level 3 Est. Patient 14:15:22 SEISMIC PROSPECTING SUPERVISOR Piotr Daley [facility] CPT-09631 Level 3 Est. Patient 20:19:57 SEISMIC PROSPECTING SUPERVISOR Piotr Daley [facility] CPT-13772 Level 3 Est. Patient 16:44:32 CDT Piotr Daley [facility] CPT-47712 Level 3 Est. Patient 08:48:46 SEISMIC PROSPECTING SUPERVISOR Piotr Daley [facility] CPT-91345 Level 3 Est. Patient 21:01:21 CDT Piotr Daley [facility] Procedures Code Procedure Name Date Entry Date Standard Description CPT-55419 Venipuncture Draw Fee 11:31:07 SEISMIC PROSPECTING SUPERVISOR CPT-72271 [facility]PS[facility] - LAB USE ONLY 11:31:07 SEISMIC PROSPECTING SUPERVISOR CPT-77079 PT/INR - LAB USE ONLY 11:31:07 SEISMIC PROSPECTING SUPERVISOR CPT-G0439 [facility] Annual Wellness Exam 09:59:29 SEISMIC PROSPECTING SUPERVISOR CPT-07030 Creatinine - LAB USE ONLY 14:37:55 SEISMIC PROSPECTING SUPERVISOR CPT-52604 PT/INR - LAB USE ONLY 14:37:55 SEISMIC PROSPECTING SUPERVISOR CPT-04681 Venipuncture Draw Fee 14:37:55 SEISMIC PROSPECTING SUPERVISOR CPT-47741 LS spine comp w obliques - XRAY USE ONLY 12:59:25 SEISMIC PROSPECTING SUPERVISOR CPT-23927 PT/INR - LAB USE ONLY 13:49:20 CDT CPT-70463 Venipuncture Draw Fee 13:49:19 CDT CPT-47938 PT/INR - LAB USE ONLY 15:48:49 CDT CPT-02060 Venipuncture Draw Fee 15:48:49 CDT CPT-57281 Venipuncture Draw Fee 11:31:59 CDT CPT-34426 PT/INR - LAB USE ONLY 11:31:59 CDT CPT-01241 Venipuncture Draw Fee 13:29:15 CDT CPT-53641 Thoracolumbar AP/Lat 15:19:19 SEISMIC PROSPECTING SUPERVISOR CPT-G0438 Initial Annual Wellness Exam 12:18:54 SEISMIC PROSPECTING SUPERVISOR CPT-34719 Knee 3V 09:57:38 CDT CPT-OV Office Visit 15:45:01 SEISMIC PROSPECTING SUPERVISOR CPT-32818 Abd compl w upright 17:10:25 CDT
--- OUTSIDE RECORDS SUMMARY | 2018-07-18 08:22 | XMS REPORT | Clinical Summary ---
Author Author Admin, Isidra Organization [employer] Address Unknown Phone Unavailable Allergies, Adverse Reactions, [...] VENOUS THROMBOPHLEBITIS, LEG, RIGHT 453.40 Active Piotr Dalye DO Acute venous embolism and thrombosis of [...] Coronary atherosclerosis of unspecified type of vessel, [place] or graft Back pain, thoracic region, left [...] po q hs for nerve pain GABAPENTIN 66845856086 Active Piotr Daley DO Active WARFARIN SODIUM 5 MG TABS 1 tablet daily WARFARIN SODIUM 52541919610 Active Simi Meyers Active TRAMADOL HCL 50 MG TABS 1 po tid with ES Tylenol TRAMADOL HCL 36617081720 Active Piotr Daley DO Active PREDNISONE 20 MG TAB 2 tablets today, then 1 tablet days 2 through 4 PREDNISONE 86102536265 No Longer Active Piotr Daley DO Active AZITHROMYCIN 250 MG TABS 2 po qd x 1 day, then 1 po qd x 4 days AZITHROMYCIN 58079330956 No Longer Active Piotr Daley DO Active IBUPROFEN 800 MG TABS 1 tab every 8 hours as needed IBUPROFEN 71424415410 No Longer Active Piotr Daley DO Active LOMOTIL 2.5-0.025 MG TAB 1 to 2 four times a day as needed for diarrhea 10/13 DIPHENOXYLATE-ATROPINE 05877920779 No Longer Active Piotr Daley DO Active WARFARIN SODIUM 4 MG TABS 1 tab every evening WARFARIN SODIUM 52455791230 No Longer Active Piotr Daley DO Active PREDNISONE 20 MG TAB 1 tablet twice daily for 2 days, then 1 tablet once daily for 2 days PREDNISONE 68691048667 No Longer Active Piotr Daley DO Active PROMETHAZINE HCL 25 MG TABS 1 four times a day as needed for nausea/vomiting PROMETHAZINE HCL 91553056266 No Longer Active Piotr Daley DO Active TUSSIONEX PENNKINETIC ER 10-8 MG/5ML LQCR 5ml po q12hr PRN Cough HYDROCOD POLST-CHLORPHEN POLST 97382326556 No Longer Active Piotr Daley DO Active AZITHROMYCIN 250 MG TABS 2 po qd x 1 day, then 1 po qd x 4 days AZITHROMYCIN 33814540118 No Longer Active Piotr Daley DO Active AZITHROMYCIN 250 MG TABS 2 po qd x 1 day, then 1 po qd x 4 days AZITHROMYCIN 76548690865 No Longer Active Piotr Daley DO Active LISINOPRIL-HYDROCHLOROTHIAZIDE 10-12.5 MG TABS 1 tab by mouth daily LISINOPRIL-HYDROCHLOROTHIAZIDE 26336364944 Active Simi Meyers Active LISINOPRIL 10 MG TABS 1/2-1 tab po every other day LISINOPRIL 08984984533 No Longer Active Piotr Daley DO Active VENTOLIN HFA 108 (90 BASE) MCG/ACT AERS 2 puffs four times a day PRN cough ALBUTEROL SULFATE 52333135334 No Longer Active Piotr Daley DO Active NYSTATIN-TRIAMCINOLONE 778176-9.1 UNIT/GM-% CREA Apply to area BID NYSTATIN-TRIAMCINOLONE 96074229817 No Longer Active Alena Chavira [employer] OFFICER Active PHISOHEX 3 % LIQD Use Directed HEXACHLOROPHENE 20121628515 No Longer Active Sandra Hamilton Active AZITHROMYCIN 250 MG TABS 2 po qd x 1 day, then 1 po qd x 4 days AZITHROMYCIN 15080319040 No Longer Active Katrina Rinaldi MD PhD Active AZITHROMYCIN 250 MG TABS 2 po qd x 1 day, then 1 po qd x 4 days AZITHROMYCIN 59931947333 No Longer Active Piotr Daley DO Active AZITHROMYCIN 500 MG SOLR 1 po q day AZITHROMYCIN 23704353212 No Longer Active Piotr Daley DO Active NYSTATIN-TRIAMCINOLONE 211224-2.1 UNIT/GM-% CREA apply bid 08/19 NYSTATIN-TRIAMCINOLONE 19314867553 No Longer Active Piotr Daley DO Active IBUPROFEN 800 MG TABS 1 po q 8 hours prn pain sparinly IBUPROFEN 78017248434 No Longer Active Piotr Daley DO Active VITAMIN D3 5000 UNIT CAPS 1 po daily CHOLECALCIFEROL 10137805331 Active Piotr Daley DO Active IBUPROFEN 800 MG TABS 1 po q 8 hours prn pain sparinly IBUPROFEN 800 MG TABS 699138 IBUPROFEN Inactive NYSTATIN-TRIAMCINOLONE 430817-0.1 UNIT/GM-% CREA apply bid 08/19 NYSTATIN-TRIAMCINOLONE 266799-5.1 UNIT/GM-% CREA 0623462 NYSTATIN- TRIAMCINOLONE Inactive AZITHROMYCIN 500 MG SOLR 1 po q day AZITHROMYCIN 500 MG SOLR 12387115081 AZITHROMYCIN Inactive VENTOLIN HFA 108 (90 BASE) MCG/ACT AERS 2 puffs four times a day PRN cough VENTOLIN HFA 108 (90 BASE) MCG/ACT AERS ALBUTEROL SULFATE Inactive LISINOPRIL 10 MG TABS 1/2-1 tab po every other day LISINOPRIL 10 MG TABS 523061 LISINOPRIL Inactive TUSSIONEX PENNKINETIC ER 10-8 MG/5ML LQCR 5ml po q12hr PRN Cough TUSSIONEX PENNKINETIC ER 10-8 MG/5ML LQCR HYDROCOD POLST- CHLORPHEN POLST Inactive PROMETHAZINE HCL 25 MG TABS 1 four times a day as needed for nausea/vomiting PROMETHAZINE HCL 25 MG TABS 155919 PROMETHAZINE HCL Inactive PREDNISONE 20 MG TAB 1 tablet twice daily for 2 days, then 1 tablet once daily for 2 days PREDNISONE 20 MG TAB 272465 PREDNISONE Inactive WARFARIN SODIUM 4 MG TABS 1 tab every evening WARFARIN SODIUM 4 MG TABS 572621 WARFARIN SODIUM Inactive LOMOTIL 2.5-0.025 MG TAB 1 to 2 four times a day as needed for diarrhea 10/13 LOMOTIL 2.5-0.025 MG TAB 5696039 DIPHENOXYLATE-ATROPINE Inactive IBUPROFEN 800 MG TABS 1 tab every 8 hours as needed IBUPROFEN 800 MG TABS 131716 IBUPROFEN Inactive PREDNISONE 20 MG TAB 2 tablets today, then 1 tablet days 2 through 4 PREDNISONE 20 MG TAB 749038 PREDNISONE Inactive AZITHROMYCIN 250 MG TABS 2 po qd x 1 day, then 1 po qd x 4 days AZITHROMYCIN 250 MG TABS 4424646 AZITHROMYCIN Inactive AZITHROMYCIN 250 MG TABS 2 po qd x 1 day, then 1 po qd x 4 days AZITHROMYCIN 250 MG TABS 1866583 AZITHROMYCIN Inactive NYSTATIN-TRIAMCINOLONE 361151-2.1 UNIT/GM-% CREA Apply to area BID NYSTATIN-TRIAMCINOLONE 240810-6.1 UNIT/GM-% CREA 6669306 NYSTATIN-TRIAMCINOLONE Inactive AZITHROMYCIN 250 MG TABS 2 po qd x 1 day, then 1 po qd x 4 days AZITHROMYCIN 250 MG TABS 0685015 AZITHROMYCIN Inactive AZITHROMYCIN 250 MG TABS 2 po qd x 1 day, then 1 po qd x 4 days AZITHROMYCIN 250 MG TABS 9809071 AZITHROMYCIN Inactive AZITHROMYCIN 250 MG TABS 2 po qd x 1 day, then 1 po qd x 4 days AZITHROMYCIN 250 MG TABS 2727756 AZITHROMYCIN Inactive Advance Directives Directive Description Start [...] Panel - Chemistry sodium, serum 141 mmol/L 526-342 4164/06/28 carbon dioxide, venous blood 31.0 mmol/L 21.0-32.0 [...] 1.0-3.5 Encounters Code Encounter Date Provider Facility CPT-62895 Level 4 Est. Patient 17:15:07 FURNACE TAPPER Piotr Daley [facility] CPT-69914 Level 3 Est. Patient 12:46:13 FURNACE TAPPER Piotr Daley [facility] CPT-86877 Level 3 Est. Patient 15:14:31 FURNACE TAPPER Piotr Wilson [facility] CPT-01188 Level 3 Est. Patient 09:20:13 FURNACE TAPPER Piotr Daley [facility] CPT-56452 Level 3 Est. Patient 09:49:40 CDT Piotr Wilson [facility] CPT-40558 Level 3 Est. Patient 16:28:11 CDT [facility] C[facility]-87056 Level 3 Est. Patient 12:41:58 FURNACE TAPPER Piotr Daley [facility] CPT-71949 Level 3 Est. Patient 09:21:24 CDT Piotr Daley [facility] CPT-30285 Level 3 Est. Patient 09:21:11 CDT Piotr Daley [facility] CPT-33550 Level 3 Est. Patient 11:16:29 FURNACE TAPPER Piotr Daley [facility] CPT-67244 Level 3 Est. Patient 18:40:19 FURNACE TAPPER Piotr Daley [facility] CPT-71239 Level 3 Est. Patient 19:30:50 CDT Piotr Daley [facility] CPT-23409 Level 3 Est. Patient 22:06:44 CDT Katrina Rinaldi MD [facility] CPT-33505 Level 3 Est. Patient 14:20:00 CDT Piotr Daley [facility] CPT-91939 Level 3 Est. Patient 14:15:22 FURNACE TAPPER Piotr Daley [facility] CPT-13149 Level 3 Est. Patient 20:19:57 FURNACE TAPPER Piotr Daley [facility] CPT-10189 Level 3 Est. Patient 16:44:32 CDT Piotr Daley [facility] CPT-52241 Level 3 Est. Patient 08:48:46 FURNACE TAPPER Piotr Daley [facility] CPT-77400 Level 3 Est. Patient 21:01:21 CDT Piotr Wilson [facility] Procedures Code Procedure Name Date Entry Date Standard Description CPT-88141 PT/INR - LAB USE ONLY 08:12:25 FURNACE TAPPER CPT-48481 Venipuncture Draw Fee 08:12:24 FURNACE TAPPER CPT-20428 Venipuncture Draw Fee 11:31:07 FURNACE TAPPER CPT-06182 TPSA - LAB USE ONLY 11:31:07 FURNACE TAPPER CPT-38112 PT/INR - LAB USE ONLY 11:31:07 FURNACE TAPPER CPT-G0439 Subsequent Annual Wellness Exam 09:59:29 FURNACE TAPPER CPT-70250 Creatinine - LAB USE ONLY 14:37:55 FURNACE TAPPER CPT-71545 PT/INR - LAB USE ONLY 14:37:55 FURNACE TAPPER CPT-25754 Venipuncture Draw Fee 14:37:55 FURNACE TAPPER CPT-62802 LS spine comp w obliques - XRAY USE ONLY 12:59:25 FURNACE TAPPER CPT-29589 PT/INR - LAB USE ONLY 13:49:20 CDT CPT-38866 Venipuncture Draw Fee 13:49:19 CDT CPT-41590 PT/INR - LAB USE ONLY 15:48:49 CDT CPT-64425 Venipuncture Draw Fee 15:48:49 CDT CPT-27983 Venipuncture Draw Fee 11:31:59 CDT CPT-59388 PT/INR - LAB USE ONLY 11:31:59 CDT CPT-45369 Venipuncture Draw Fee 13:29:15 CDT CPT-13226 Thoracolumbar AP/Lat 15:19:19 FURNACE TAPPER CPT-G0438 Initial Annual Wellness Exam 12:18:54 FURNACE TAPPER CPT-04448 Knee 3V 09:57:38 CDT CPT-OV Office Visit 15:45:01 FURNACE TAPPER CPT-44533 Abd compl w upright 17:10:25 CDT
--- OUTSIDE RECORDS SUMMARY | 2018-07-18 08:23 | XMS REPORT | Clinical Summary ---
Author Author Admin, E Organization [employer] Address Unknown Phone Unavailable Allergies, Adverse Reactions, [...] Coronary atherosclerosis of unspecified type of vessel, [place] or graft Back pain, thoracic region, left [...] MG TABS 1 tablet daily WARFARIN SODIUM 50813614456 Active Emelyn Goode RPT,RMA Active TRAMADOL HCL 50 MG TABS 1 po tid with ES Tylenol TRAMADOL HCL 33696650390 Active Piotr Daley DO Active PREDNISONE 20 MG TAB 2 tablets today, then 1 tablet days 2 through 4 PREDNISONE 94166731539 No Longer Active Piotr Daley DO Active AZITHROMYCIN 250 MG TABS 2 po qd x 1 day, then 1 po qd x 4 days AZITHROMYCIN 73785198638 No Longer Active Piotr Daley DO Active IBUPROFEN 800 MG TABS 1 tab every 8 hours as needed IBUPROFEN 55078054713 No Longer Active Piotr Daley DO Active LOMOTIL 2.5-0.025 MG TAB 1 to 2 four times a day as needed for diarrhea 10/13 DIPHENOXYLATE-ATROPINE 06744324480 No Longer Active Piotr Daley DO Active WARFARIN SODIUM 4 MG TABS 1 tab every evening WARFARIN SODIUM 05262189625 No Longer Active Piotr Daley DO Active PREDNISONE 20 MG TAB 1 tablet twice daily for 2 days, then 1 tablet once daily for 2 days PREDNISONE 32229311023 No Longer Active Piotr Daley DO Active PROMETHAZINE HCL 25 MG TABS 1 four times a day as needed for nausea/vomiting PROMETHAZINE HCL 39446628006 No Longer Active Piotr Daley DO Active TUSSIONEX PENNKINETIC ER 10-8 MG/5ML LQCR 5ml po q12hr PRN Cough HYDROCOD POLST-CHLORPHEN POLST 37411419222 No Longer Active Piotr W Edi DO Active AZITHROMYCIN 250 MG TABS 2 po qd x 1 day, then 1 po qd x 4 days AZITHROMYCIN 04641583534 No Longer Active Piotr Daley DO Active AZITHROMYCIN 250 MG TABS 2 po qd x 1 day, then 1 po qd x 4 days AZITHROMYCIN 01457689089 No Longer Active Piotr Daley DO Active LISINOPRIL-HYDROCHLOROTHIAZIDE 10-12.5 MG TABS 1 tab by mouth daily LISINOPRIL-HYDROCHLOROTHIAZIDE 07476938652 Active Hilary Ma MA Active LISINOPRIL 10 MG TABS 1/2-1 tab po every other day LISINOPRIL 36026530703 No Longer Active Piotr Daley DO Active VENTOLIN HFA 108 (90 BASE) MCG/ACT AERS 2 puffs four times a day PRN cough ALBUTEROL SULFATE 17696043895 No Longer Active Piotr Daley DO Active NYSTATIN-TRIAMCINOLONE 313817-3.1 UNIT/GM-% CREA Apply to area BID NYSTATIN-TRIAMCINOLONE 80066771530 No Longer Active Alena Oswaldum [employer] MAGISTRATE Active PHISOHEX 3 % LIQD Use Directed HEXACHLOROPHENE 66738248442 No Longer Active Sandra Whittier Active AZITHROMYCIN 250 MG TABS 2 po qd x 1 day, then 1 po qd x 4 days AZITHROMYCIN 42748110119 No Longer Active Katrina Rinaldi MD PhD Active AZITHROMYCIN 250 MG TABS 2 po qd x 1 day, then 1 po qd x 4 days AZITHROMYCIN 71305758499 No Longer Active Piotr Daley DO Active AZITHROMYCIN 500 MG SOLR 1 po q day AZITHROMYCIN 48338836249 No Longer Active Piotr Daley DO Active NYSTATIN-TRIAMCINOLONE 435860-7.1 UNIT/GM-% CREA apply bid 08/19 NYSTATIN-TRIAMCINOLONE 28121868737 No Longer Active Piotr Daley DO Active IBUPROFEN 800 MG TABS 1 po q 8 hours prn pain sparinly IBUPROFEN 58496978009 No Longer Active Piotr Daley DO Active VITAMIN D3 5000 UNIT CAPS 1 po daily CHOLECALCIFEROL 66388634531 Active Piotr Daley DO Active IBUPROFEN 800 MG TABS 1 po q 8 hours prn pain sparinly IBUPROFEN 800 MG TABS 155248 IBUPROFEN Inactive NYSTATIN-TRIAMCINOLONE 506501-4.1 UNIT/GM-% CREA apply bid 08/19 NYSTATIN-TRIAMCINOLONE 176396-2.1 UNIT/GM-% CREA 4542181 NYSTATIN- TRIAMCINOLONE Inactive AZITHROMYCIN 500 MG SOLR 1 po q day AZITHROMYCIN 500 MG SOLR 98370669126 AZITHROMYCIN Inactive VENTOLIN HFA 108 (90 BASE) MCG/ACT AERS 2 puffs four times a day PRN cough VENTOLIN HFA 108 (90 BASE) MCG/ACT AERS ALBUTEROL SULFATE Inactive LISINOPRIL 10 MG TABS 1/2-1 tab po every other day LISINOPRIL 10 MG TABS 542233 LISINOPRIL Inactive TUSSIONEX PENNKINETIC ER 10-8 MG/5ML LQCR 5ml po q12hr PRN Cough TUSSIONEX PENNKINETIC ER 10-8 MG/5ML LQCR HYDROCOD POLST- CHLORPHEN POLST Inactive PROMETHAZINE HCL 25 MG TABS 1 four times a day as needed for nausea/vomiting PROMETHAZINE HCL 25 MG TABS 999118 PROMETHAZINE HCL Inactive PREDNISONE 20 MG TAB 1 tablet twice daily for 2 days, then 1 tablet once daily for 2 days PREDNISONE 20 MG TAB 424535 PREDNISONE Inactive WARFARIN SODIUM 4 MG TABS 1 tab every evening WARFARIN SODIUM 4 MG TABS 815694 WARFARIN SODIUM Inactive LOMOTIL 2.5-0.025 MG TAB 1 to 2 four times a day as needed for diarrhea 10/13 LOMOTIL 2.5-0.025 MG TAB 4897068 DIPHENOXYLATE-ATROPINE Inactive IBUPROFEN 800 MG TABS 1 tab every 8 hours as needed IBUPROFEN 800 MG TABS 808022 IBUPROFEN Inactive PREDNISONE 20 MG TAB 2 tablets today, then 1 tablet days 2 through 4 PREDNISONE 20 MG TAB 857176 PREDNISONE Inactive AZITHROMYCIN 250 MG TABS 2 po qd x 1 day, then 1 po qd x 4 days AZITHROMYCIN 250 MG TABS 8410982 AZITHROMYCIN Inactive AZITHROMYCIN 250 MG TABS 2 po qd x 1 day, then 1 po qd x 4 days AZITHROMYCIN 250 MG TABS 3419990 AZITHROMYCIN Inactive NYSTATIN-TRIAMCINOLONE 296160-9.1 UNIT/GM-% CREA Apply to area BID NYSTATIN-TRIAMCINOLONE 291160-1.1 UNIT/GM-% CREA 3833476 NYSTATIN-TRIAMCINOLONE Inactive AZITHROMYCIN 250 MG TABS 2 po qd x 1 day, then 1 po qd x 4 days AZITHROMYCIN 250 MG TABS 5747969 AZITHROMYCIN Inactive AZITHROMYCIN 250 MG TABS 2 po qd x 1 day, then 1 po qd x 4 days AZITHROMYCIN 250 MG TABS 9346683 AZITHROMYCIN Inactive AZITHROMYCIN 250 MG TABS 2 po qd x 1 day, then 1 po qd x 4 days AZITHROMYCIN 250 MG TABS 3846494 AZITHROMYCIN Inactive Advance Directives Directive Description Start [...] Panel - Chemistry sodium, serum 141 mmol/L 489-093 3078/06/28 carbon dioxide, venous blood 31.0 mmol/L 21.0-32.0 [...] Lab microalbumin, urine 10 0-19 Lab Report: MICROALBUMIN, Comp. Metabolic Panel, CBC - Chemistry albumin/creatinine ratio, urine < 30 mg/g mg/g{creat} 0-29 sodium, serum 140 mmol/L 666-818 0122/07/17 potassium, serum 4.2 mmol/L 3.5-5.2 chloride, serum [...] normalized ratio (INR) 1.7 1.0-3.5 Lab Report: Prothrombin Time, Prostatic Specific [...] 5.0-8.5 Encounters Code Encounter Date Provider Facility CPT-42859 Level 3 Est. Patient 15:14:31 DEPUTY GENERAL COUNSEL Piotr Daley DO [facility] CPT-86834 Level 3 Est. Patient 09:20:13 DEPUTY GENERAL COUNSEL Piotr Katie Daley [facility] CPT-17209 Level 3 Est. Patient 09:49:40 CDT Piotr Daley [facility] CPT-53216 Level 3 Est. Patient 16:28:11 CDT Piotr Daley [facility] CPT-15483 Level 3 Est. Patient 12:41:58 DEPUTY GENERAL COUNSEL Piotr Daley [facility] CPT-76957 Level 3 Est. Patient 09:21:24 CDT Piotr Daley [facility] CPT-16703 Level 3 Est. Patient 09:21:11 CDT Piotr Daley [facility] CPT-63023 Level 3 Est. Patient 11:16:29 DEPUTY GENERAL COUNSEL Piotr Daley [facility] CPT-08875 Level 3 Est. Patient 18:40:19 DEPUTY GENERAL COUNSEL Piotr Daley [facility] CPT-63697 Level 3 Est. Patient 19:30:50 CDT Piotr Daley [facility] CPT-90145 Level 3 Est. Patient 22:06:44 CDT Katrina Rinaldi MD [facility] CPT-75601 Level 3 Est. Patient 14:20:00 CDT Piotr Daley [facility] CPT-25785 Level 3 Est. Patient 14:15:22 DEPUTY GENERAL COUNSEL Piotr Daley [facility] CPT-68232 Level 3 Est. Patient 20:19:57 DEPUTY GENERAL COUNSEL Piotr Daley [facility] CPT-97292 Level 3 Est. Patient 16:44:32 CDT Piotr Daley [facility] CPT-14171 Level 3 Est. Patient 08:48:46 DEPUTY GENERAL COUNSEL Piotr Daley [facility] CPT-39477 Level 3 Est. Patient 21:01:21 CDT Piotr W Edi DO [facility] Procedures Code Procedure Name Date Entry Date Standard Description CPT-61714 Thoracolumbar AP/Lat 15:19:19 DEPUTY GENERAL COUNSEL CPT-G0438 Initial Annual Wellness Exam 12:18:54 DEPUTY GENERAL COUNSEL CPT-17067 Knee 3V 09:57:38 CDT CPT-OV Office Visit 15:45:01 DEPUTY GENERAL COUNSEL CPT-51589 Abd compl w upright 17:10:25 CDT
--- OUTSIDE RECORDS SUMMARY | 2018-07-18 08:24 | XMS REPORT | Clinical Summary ---
Author Author Admin, Isidra Organization [employer] Address Unknown Phone Unavailable Allergies, Adverse Reactions, [...] Coronary atherosclerosis of unspecified type of vessel, [place] or graft Back pain, thoracic region, [...] po q hs for nerve pain GABAPENTIN 93514040306 Active Piotr Daley DO Active WARFARIN SODIUM 5 MG TABS 1 tablet daily WARFARIN SODIUM 89345739836 Active Simi Meyers Active TRAMADOL HCL 50 MG TABS 1 po tid with ES Tylenol TRAMADOL HCL 28830459684 Active Piotr Daley DO Active PREDNISONE 20 MG TAB 2 tablets today, then 1 tablet days 2 through 4 PREDNISONE 93123381316 No Longer Active Piotr Daley DO Active AZITHROMYCIN 250 MG TABS 2 po qd x 1 day, then 1 po qd x 4 days AZITHROMYCIN 06774371341 No Longer Active Piotr Daley DO Active IBUPROFEN 800 MG TABS 1 tab every 8 hours as needed IBUPROFEN 74501622088 No Longer Active Piotr Daley DO Active LOMOTIL 2.5-0.025 MG TAB 1 to 2 four times a day as needed for diarrhea 10/13 DIPHENOXYLATE-ATROPINE 23912217665 No Longer Active Piotr Daley DO Active WARFARIN SODIUM 4 MG TABS 1 tab every evening WARFARIN SODIUM 31178607514 No Longer Active Piotr Daley DO Active PREDNISONE 20 MG TAB 1 tablet twice daily for 2 days, then 1 tablet once daily for 2 days PREDNISONE 41763393846 No Longer Active Piotr Daley DO Active PROMETHAZINE HCL 25 MG TABS 1 four times a day as needed for nausea/vomiting PROMETHAZINE HCL 73618981675 No Longer Active Piotr Daley DO Active TUSSIONEX PENNKINETIC ER 10-8 MG/5ML LQCR 5ml po q12hr PRN Cough HYDROCOD POLST-CHLORPHEN POLST 97901139288 No Longer Active Piotr Daley DO Active AZITHROMYCIN 250 MG TABS 2 po qd x 1 day, then 1 po qd x 4 days AZITHROMYCIN 54621987212 No Longer Active Piotr Daley DO Active AZITHROMYCIN 250 MG TABS 2 po qd x 1 day, then 1 po qd x 4 days AZITHROMYCIN 75201763502 No Longer Active Piotr Daley DO Active LISINOPRIL-HYDROCHLOROTHIAZIDE 10-12.5 MG TABS 1 tab by mouth daily LISINOPRIL-HYDROCHLOROTHIAZIDE 22347248128 Active Hilary Ma MA Active LISINOPRIL 10 MG TABS 1/2-1 tab po every other day LISINOPRIL 16870306734 No Longer Active Piotr Daley DO Active VENTOLIN HFA 108 (90 BASE) MCG/ACT AERS 2 puffs four times a day PRN cough ALBUTEROL SULFATE 92032455774 No Longer Active Piotr Daley DO Active NYSTATIN-TRIAMCINOLONE 430796-2.1 UNIT/GM-% CREA Apply to area BID NYSTATIN-TRIAMCINOLONE 92093390441 No Longer Active Alena Chavira TELE GROUT SEWER LINE REPAIRER Active PHISOHEX 3 % LIQD Use Directed HEXACHLOROPHENE 90216606246 No Longer Active Sandra [place] Active AZITHROMYCIN 250 MG TABS 2 po qd x 1 day, then 1 po qd x 4 days AZITHROMYCIN 22501792347 No Longer Active Katrina Rinaldi MD PhD Active AZITHROMYCIN 250 MG TABS 2 po qd x 1 day, then 1 po qd x 4 days AZITHROMYCIN 50916379176 No Longer Active Piotr Daley DO Active AZITHROMYCIN 500 MG SOLR 1 po q day AZITHROMYCIN 68843931852 No Longer Active Piotr Daley DO Active NYSTATIN-TRIAMCINOLONE 633957-9.1 UNIT/GM-% CREA apply bid 08/19 NYSTATIN-TRIAMCINOLONE 18529879332 No Longer Active Piotr Daley DO Active IBUPROFEN 800 MG TABS 1 po q 8 hours prn pain sparinly IBUPROFEN 65292777779 No Longer Active Piotr Daley DO Active VITAMIN D3 5000 UNIT CAPS 1 po daily CHOLECALCIFEROL 65315478021 Active Piotr Daley DO Active IBUPROFEN 800 MG TABS 1 po q 8 hours prn pain sparinly IBUPROFEN 800 MG TABS 676399 IBUPROFEN Inactive NYSTATIN-TRIAMCINOLONE 276732-6.1 UNIT/GM-% CREA apply bid 08/19 NYSTATIN-TRIAMCINOLONE 643158-5.1 UNIT/GM-% CREA 3195323 NYSTATIN- TRIAMCINOLONE Inactive AZITHROMYCIN 500 MG SOLR 1 po q day AZITHROMYCIN 500 MG SOLR 38074548685 AZITHROMYCIN Inactive VENTOLIN HFA 108 (90 BASE) MCG/ACT AERS 2 puffs four times a day PRN cough VENTOLIN HFA 108 (90 BASE) MCG/ACT AERS ALBUTEROL SULFATE Inactive LISINOPRIL 10 MG TABS 1/2-1 tab po every other day LISINOPRIL 10 MG TABS 464653 LISINOPRIL Inactive TUSSIONEX PENNKINETIC ER 10-8 MG/5ML LQCR 5ml po q12hr PRN Cough TUSSIONEX PENNKINETIC ER 10-8 MG/5ML LQCR HYDROCOD POLST- CHLORPHEN POLST Inactive PROMETHAZINE HCL 25 MG TABS 1 four times a day as needed for nausea/vomiting PROMETHAZINE HCL 25 MG TABS 116648 PROMETHAZINE HCL Inactive PREDNISONE 20 MG TAB 1 tablet twice daily for 2 days, then 1 tablet once daily for 2 days PREDNISONE 20 MG TAB 875149 PREDNISONE Inactive WARFARIN SODIUM 4 MG TABS 1 tab every evening WARFARIN SODIUM 4 MG TABS 342952 WARFARIN SODIUM Inactive LOMOTIL 2.5-0.025 MG TAB 1 to 2 four times a day as needed for diarrhea 10/13 LOMOTIL 2.5-0.025 MG TAB 0179015 DIPHENOXYLATE-ATROPINE Inactive IBUPROFEN 800 MG TABS 1 tab every 8 hours as needed IBUPROFEN 800 MG TABS 054293 IBUPROFEN Inactive PREDNISONE 20 MG TAB 2 tablets today, then 1 tablet days 2 through 4 PREDNISONE 20 MG TAB 290967 PREDNISONE Inactive AZITHROMYCIN 250 MG TABS 2 po qd x 1 day, then 1 po qd x 4 days AZITHROMYCIN 250 MG TABS 6520134 AZITHROMYCIN Inactive AZITHROMYCIN 250 MG TABS 2 po qd x 1 day, then 1 po qd x 4 days AZITHROMYCIN 250 MG TABS 8622188 AZITHROMYCIN Inactive NYSTATIN-TRIAMCINOLONE 465045-9.1 UNIT/GM-% CREA Apply to area BID NYSTATIN-TRIAMCINOLONE 309701-7.1 UNIT/GM-% CREA 7721855 NYSTATIN-TRIAMCINOLONE Inactive AZITHROMYCIN 250 MG TABS 2 po qd x 1 day, then 1 po qd x 4 days AZITHROMYCIN 250 MG TABS 5459103 AZITHROMYCIN Inactive AZITHROMYCIN 250 MG TABS 2 po qd x 1 day, then 1 po qd x 4 days AZITHROMYCIN 250 MG TABS 4124873 AZITHROMYCIN Inactive AZITHROMYCIN 250 MG TABS 2 po qd x 1 day, then 1 po qd x 4 days AZITHROMYCIN 250 MG TABS 6370854 AZITHROMYCIN Inactive Advance Directives Directive Description Start [...] Range Description Lab Report: CBC - Hematology hematocrit, blood 43.6 % 41.0-53.0 mean corpuscular volume, RBC 84 fL 80-97 mean corpuscular hemoglobin, RBC 28.4 pg 27.0-31.2 hemoglobin, blood 14.8 g/dL 13.5-17.5 leukocyte count, blood 5.2 10^3/MM^3 10*3/mm3 4.6-10.2 mean corpuscular hemoglobin concentration, RBC 33.9 G/DL % 31.8- 35.4 red blood cell distribution width 15.0 % 11.6-14.8 platelet count 210 10^3/MM^3 10*3/mm3 083-596 7456/02/09 erythrocyte (RBC) count 5.20 10^6/MM^3 10*6/mm3 4.69-6.13 Lab Report: Comp. Metabolic Panel - Chemistry sodium, serum 141 mmol/L 853-563 0657/06/28 carbon dioxide, venous blood 31.0 mmol/L 21.0-32.0 [...] ratio (INR) 1.9 1.0-3.5 prothrombin time (patient) 15.4 SECS s 11.1-13.4 international normalized ratio (INR) 1.7 1.0-3.5 prothrombin time (patient) 18.1 SECS s 11.1-13.4 international normalized ratio (INR) 2.2 1.0-3.5 prothrombin time (patient) 22.8 SECS s 11.1-13.4 international normalized ratio (INR) 3.0 1.0-3.5 prothrombin time (patient) 19.8 SECS s 11.1-13.4 international normalized ratio (INR) 2.3 1.0-3.5 international normalized ratio (INR) 3.0 1.0-3.5 prothrombin time (patient) 18.3 SECS s 11.1-13.4 international normalized ratio (INR) 2.3 1.0-3.5 international normalized ratio (INR) 2.5 1.0-3.5 prothrombin time (patient) 23.1 SECS s 11.1-13.4 prothrombin time (patient) 20.8 SECS s 11.1-13.4 [...] urine Clear Clear urine color Yellow Colorless;Lightyellow;Straw;Yellow bilirubin, urine Negative Negative ketones, urine, by test strip Negative Negative glucose, urine, semiquantitative Negative Negative leukocyte esterase, urine, by dipstick Negative Negative nitrite, urine, semiquantitative Negative Negative urobilinogen, urine, semiquantitative (dipstick) 0.2 Normal Encounters Code Encounter Date Provider Facility CPT-18674 Level 4 Est. Patient 17:15:07 MINI LAB OPERATOR Piotr Daley [facility] CPT-10810 Level 3 Est. Patient 12:46:13 MINI LAB OPERATOR Piotr Katie Edi [facility] CPT-23683 Level 3 Est. Patient 15:14:31 MINI LAB OPERATOR Piotr Daley [facility] CPT-90248 Level 3 Est. Patient 09:20:13 MINI LAB OPERATOR Piotr Katie Edi [facility] CPT-49601 Level 3 Est. Patient 09:49:40 CDT Piotr Katie Edi [facility] CPT-21532 Level 3 Est. Patient 16:28:11 CDT Piotr Katie Edi [facility] CPT-21213 Level 3 Est. Patient 12:41:58 MINI LAB OPERATOR Piotr Daley [facility] CPT-10350 Level 3 Est. Patient 09:21:24 CDT Piotr Daley [facility] CPT-85957 Level 3 Est. Patient 09:21:11 CDT Piotr Daley [facility] CPT-64049 Level 3 Est. Patient 11:16:29 MINI LAB OPERATOR Piotr Daley [facility] CPT-59423 Level 3 Est. Patient 18:40:19 MINI LAB OPERATOR Piotr Daley [facility] CPT-78617 Level 3 Est. Patient 19:30:50 CDT Piotr Daley [facility] CPT-30822 Level 3 Est. Patient 22:06:44 CDT Katrina Rinaldi MD [facility] CPT-66461 Level 3 Est. Patient 14:20:00 CDT Piotr Daley [facility] CPT-53979 Level 3 Est. Patient 14:15:22 MINI LAB OPERATOR Piotr Daley [facility] CPT-58546 Level 3 Est. Patient 20:19:57 MINI LAB OPERATOR Piotr Daley [facility] CPT-91043 Level 3 Est. Patient 16:44:32 CDT Piotr Daley [facility] CPT-49433 Level 3 Est. Patient 08:48:46 MINI LAB OPERATOR Piotr Daley [facility] CPT-51678 Level 3 Est. Patient 21:01:21 CDT Piotr Daley [facility] Procedures Code Procedure Name Date Entry Date Standard Description CPT-15383 Creatinine - LAB USE ONLY 14:37:55 MINI LAB OPERATOR CPT-41254 PT/INR - LAB USE ONLY 14:37:55 MINI LAB OPERATOR CPT-12942 Venipuncture Draw Fee 14:37:55 MINI LAB OPERATOR CPT-73529 LS spine comp w obliques - XRAY USE ONLY 12:59:25 MINI LAB OPERATOR CPT-83540 PT/INR - LAB USE ONLY 13:49:20 CDT CPT-24864 Venipuncture Draw Fee 13:49:19 CDT CPT-43956 PT/INR - LAB USE ONLY 15:48:49 CDT CPT-73846 Venipuncture Draw Fee 15:48:49 CDT CPT-53059 Venipuncture Draw Fee 11:31:59 CDT CPT-03353 PT/INR - LAB USE ONLY 11:31:59 CDT CPT-81763 Venipuncture Draw Fee 13:29:15 CDT CPT-60429 Thoracolumbar AP/Lat 15:19:19 MINI LAB OPERATOR CPT-G0438 Initial Annual Wellness Exam 12:18:54 MINI LAB OPERATOR CPT-98083 Knee 3V 09:57:38 CDT CPT-OV Office Visit 15:45:01 MINI LAB OPERATOR CPT-55712 Abd compl w upright 17:10:25 CDT
--- OUTSIDE RECORDS SUMMARY | 2018-07-18 08:24 | XMS REPORT | Clinical Summary ---
Author Author Admin, Isidra Organization [employer] Address Unknown Phone Unavailable Allergies, Adverse Reactions, [...] essential hypertension FLANK PAIN, RIGHT 789.09 Resolved Katirna Rinaldi MD PhD Abdominal pain, other specified [...] neoplasm of prostate V10.46 Active Alina Meyers FILAMENT COIL WINDER Personal history of malignant neoplasm of prostate Coronary artery disease 414.00 Active Alina Luigi ARISTIDES Coronary atherosclerosis of unspecified type of vessel, ruby or graft Back pain, thoracic region, left 724.1 Inactive Piotr Daley DO Pain in thoracic spine Thoracic back pain 724.5 Active Piotr Wilson Edi DO Backache, unspecified Back pain lumbar 724.2 Active Piotr Daley DO Lumbago Peripheral neuropathy, lower extremity, left 356.9 Active 02/19 Piotr W Edi DO Unspecified hereditary and idiopathic peripheral neuropathy Insect bite 919.4 Active Nella Harris FILAMENT COIL WINDER Insect bite, nonvenomous, of other, multiple, and unspecified sites, without mention of infection Pruritus 698.9 Active Nella Harris FILAMENT COIL WINDER Unspecified pruritic disorder FLANK PAIN, RIGHT ICD-789.09 [...] mouth BID x10 days 10/01 DOXYCYCLINE HYCLATE 13995575087 No Longer Active Nella Harris APRN Active WARFARIN SODIUM 5 MG TABS 1 tablet daily M-S, 1/2 tab on Heart WARFARIN SODIUM 43979159579 Active Catalina Freitas Active PROAIR HFA 108 (90 BASE) MCG/ACT AERS 1-2 puffs four times a day as needed ALBUTEROL SULFATE 28029760826 Active Matthew Rangel MD Active PREDNISONE 20 MG TAB 2 tabs daily for 3 days, 1 tab daily for 3 days, 1/2 tab daily for 2 days PREDNISONE 01245869008 No Longer Active Matthew Rangel MD Active TRAMADOL HCL 50 MG TABS 1 po tid with ES Tylenol TRAMADOL HCL 21570709019 No Longer Active Matthew Rangel MD Active GABAPENTIN 300 MG CAPS 1 po q hs for nerve pain GABAPENTIN 84737848122 No Longer Active Matthew Rangel MD Active PREDNISONE 20 MG TAB 2 tablets today, then 1 tablet days 2 through 4 PREDNISONE 89433156851 No Longer Active Piotr Daley DO Active AZITHROMYCIN 250 MG TABS 2 po qd x 1 day, then 1 po qd x 4 days AZITHROMYCIN 43792538404 No Longer Active Piotr Daley DO Active IBUPROFEN 800 MG TABS 1 tab every 8 hours as needed IBUPROFEN 77664582961 No Longer Active Piotr Daley DO Active LOMOTIL 2.5-0.025 MG TAB 1 to 2 four times a day as needed for diarrhea 10/13 DIPHENOXYLATE-ATROPINE 30348216399 No Longer Active Piotr Daley DO Active WARFARIN SODIUM 4 MG TABS 1 tab every evening WARFARIN SODIUM 17099497285 No Longer Active Piotr Daley DO Active PREDNISONE 20 MG TAB 1 tablet twice daily for 2 days, then 1 tablet once daily for 2 days PREDNISONE 62423231005 No Longer Active Piotr Daley DO Active PROMETHAZINE HCL 25 MG TABS 1 four times a day as needed for nausea/vomiting PROMETHAZINE HCL 80577156968 No Longer Active Piotr Daley DO Active TUSSIONEX PENNKINETIC ER 10-8 MG/5ML LQCR 5ml po q12hr PRN Cough HYDROCOD POLST-CHLORPHEN POLST 75085888936 No Longer Active Piotr Daley DO Active AZITHROMYCIN 250 MG TABS 2 po qd x 1 day, then 1 po qd x 4 days AZITHROMYCIN 91603904168 No Longer Active Piotr Daley DO Active AZITHROMYCIN 250 MG TABS 2 po qd x 1 day, then 1 po qd x 4 days AZITHROMYCIN 74084686122 No Longer Active Piotr Daley DO Active LISINOPRIL-HYDROCHLOROTHIAZIDE 10-12.5 MG TABS 1 tab by mouth daily LISINOPRIL-HYDROCHLOROTHIAZIDE 50811382248 Active Catalina Freitas Active LISINOPRIL 10 MG TABS 1/2-1 tab po every other day LISINOPRIL 30485050561 No Longer Active Piotr W Edi DO Active VENTOLIN HFA 108 (90 BASE) MCG/ACT AERS 2 puffs four times a day PRN cough ALBUTEROL SULFATE 04738978797 No Longer Active Piotr Daley DO Active NYSTATIN-TRIAMCINOLONE 689365-7.1 UNIT/GM-% CREA Apply to area BID NYSTATIN-TRIAMCINOLONE 64027454506 No Longer Active Alena Oswaldum ROLL EDGE MACHINE OPERATOR Active PHISOHEX 3 % LIQD Use Directed HEXACHLOROPHENE 92371813144 No Longer Active Sandra [place] Active AZITHROMYCIN 250 MG TABS 2 po qd x 1 day, then 1 po qd x 4 days AZITHROMYCIN 08013638254 No Longer Active Katrina Rinaldi MD PhD Active AZITHROMYCIN 250 MG TABS 2 po qd x 1 day, then 1 po qd x 4 days AZITHROMYCIN 41932612336 No Longer Active Piotr Daley DO Active AZITHROMYCIN 500 MG SOLR 1 po q day AZITHROMYCIN 18462853841 No Longer Active Piotr Daley DO Active NYSTATIN-TRIAMCINOLONE 570426-9.1 UNIT/GM-% CREA apply bid 08/19 NYSTATIN-TRIAMCINOLONE 20345618021 No Longer Active Piotr Daley DO Active IBUPROFEN 800 MG TABS 1 po q 8 hours prn pain sparinly IBUPROFEN 33105891787 No Longer Active Piotr Daley DO Active VITAMIN D3 5000 UNIT CAPS 1 po daily CHOLECALCIFEROL 11688941914 Active Piotr Daley DO Active IBUPROFEN 800 MG TABS 1 po q 8 hours prn pain sparinly IBUPROFEN 800 MG TABS 327954 IBUPROFEN Inactive NYSTATIN-TRIAMCINOLONE 263676-1.1 UNIT/GM-% CREA apply bid 08/19 NYSTATIN-TRIAMCINOLONE 789807-0.1 UNIT/GM-% CREA 8130104 NYSTATIN- TRIAMCINOLONE Inactive AZITHROMYCIN 500 MG SOLR 1 po q day AZITHROMYCIN 500 MG SOLR 78748004535 AZITHROMYCIN Inactive VENTOLIN HFA 108 (90 BASE) MCG/ACT AERS 2 puffs four times a day PRN cough VENTOLIN HFA 108 (90 BASE) MCG/ACT AERS ALBUTEROL SULFATE Inactive LISINOPRIL 10 MG TABS 1/2-1 tab po every other day LISINOPRIL 10 MG TABS 458863 LISINOPRIL Inactive TUSSIONEX PENNKINETIC ER 10-8 MG/5ML LQCR 5ml po q12hr PRN Cough TUSSIONEX PENNKINETIC ER 10-8 MG/5ML LQCR HYDROCOD POLST- CHLORPHEN POLST Inactive PROMETHAZINE HCL 25 MG TABS 1 four times a day as needed for nausea/vomiting PROMETHAZINE HCL 25 MG TABS 925344 PROMETHAZINE HCL Inactive PREDNISONE 20 MG TAB 1 tablet twice daily for 2 days, then 1 tablet once daily for 2 days PREDNISONE 20 MG TAB 206064 PREDNISONE Inactive WARFARIN SODIUM 4 MG TABS 1 tab every evening WARFARIN SODIUM 4 MG TABS 647826 WARFARIN SODIUM Inactive LOMOTIL 2.5-0.025 MG TAB 1 to 2 four times a day as needed for diarrhea 10/13 LOMOTIL 2.5-0.025 MG TAB 3281111 DIPHENOXYLATE-ATROPINE Inactive IBUPROFEN 800 MG TABS 1 tab every 8 hours as needed IBUPROFEN 800 MG TABS 958966 IBUPROFEN Inactive PREDNISONE 20 MG TAB 2 tablets today, then 1 tablet days 2 through 4 PREDNISONE 20 MG TAB 110283 PREDNISONE Inactive GABAPENTIN 300 MG CAPS 1 po q hs for nerve pain GABAPENTIN 300 MG CAPS 807853 GABAPENTIN Inactive TRAMADOL HCL 50 MG TABS 1 po tid with ES Tylenol TRAMADOL HCL 50 MG TABS 520177 TRAMADOL HCL Inactive AZITHROMYCIN 250 MG TABS 2 po qd x 1 day, then 1 po qd x 4 days AZITHROMYCIN 250 MG TABS 5892619 AZITHROMYCIN Inactive AZITHROMYCIN 250 MG TABS 2 po qd x 1 day, then 1 po qd x 4 days AZITHROMYCIN 250 MG TABS 7332368 AZITHROMYCIN Inactive NYSTATIN-TRIAMCINOLONE 929965-6.1 UNIT/GM-% CREA Apply to area BID NYSTATIN-TRIAMCINOLONE 400136-9.1 UNIT/GM-% CREA 9871006 NYSTATIN-TRIAMCINOLONE Inactive AZITHROMYCIN 250 MG TABS 2 po qd x 1 day, then 1 po qd x 4 days AZITHROMYCIN 250 MG TABS 3911891 AZITHROMYCIN Inactive AZITHROMYCIN 250 MG TABS 2 po qd x 1 day, then 1 po qd x 4 days AZITHROMYCIN 250 MG TABS 4667511 AZITHROMYCIN Inactive AZITHROMYCIN 250 MG TABS 2 po qd x 1 day, then 1 po qd x 4 days AZITHROMYCIN 250 MG TABS 9978871 AZITHROMYCIN Inactive PREDNISONE 20 MG TAB 2 tabs daily for 3 days, 1 tab daily for 3 days, 1/2 tab daily for 2 days PREDNISONE 20 MG TAB 538208 PREDNISONE Inactive DOXYCYCLINE HYCLATE 100 MG CAP 1 cap by mouth BID x10 days 10/01 DOXYCYCLINE HYCLATE 100 MG CAP 3840224 DOXYCYCLINE HYCLATE Inactive Advance Directives Directive Description [...] Panel - Chemistry sodium, serum 141 mmol/L 474-771 6858/01/24 potassium, serum 4.3 mmol/L 3.5-5.2 chloride, serum [...] % 11.0-15.0 platelet count 172 THOUSAND/UL 10*3/mm3 196-301 5420/04/12 mean platelet volume 8.6 fL 7.5-12.5 Lab [...] 18.9-24.9 Encounters Code Encounter Date Provider Facility CPT-01338 Level 3 Est. Patient 17:10:19 CDT Nella Harris APRN [facility] CPT-70291 Level 3 Est. Patient 10:48:17 BODY AND FENDER MECHANIC Matthew Rangel MD [facility] CPT-62906 Level 4 Est. Patient 17:15:07 BODY AND FENDER MECHANIC Piotr Wilson Edi [facility] CPT-45256 Level 3 Est. Patient 12:46:13 BODY AND FENDER MECHANIC Piotr Wilson Edi [facility] CPT-94814 Level 3 Est. Patient 15:14:31 BODY AND FENDER MECHANIC Piotr Daley [facility] CPT-85355 Level 3 Est. Patient 09:20:13 BODY AND FENDER MECHANIC Piotr Wilson Edi [facility] CPT-00737 Level 3 Est. Patient 09:49:40 CDT Piotr Wilson [facility] CPT-36026 Level 3 Est. Patient 16:28:11 CDT Piotr Daley [facility] CPT-25802 Level 3 Est. Patient 12:41:58 BODY AND FENDER MECHANIC Piotr Wilson Edi [facility] CPT-80457 Level 3 Est. Patient 09:21:24 CDT Piotr Wilson Edi [facility] CPT-54891 Level 3 Est. Patient 09:21:11 CDT Piotr Wilson [facility] CPT-37326 Level 3 Est. Patient 11:16:29 BODY AND FENDER MECHANIC Piotr Daley [facility] CPT-32537 Level 3 Est. Patient 18:40:19 BODY AND FENDER MECHANIC Piotr Daley [facility] CPT-60085 Level 3 Est. Patient 19:30:50 CDT Piotr Wilson [facility] CPT-12334 Level 3 Est. Patient 22:06:44 CDT Katrina Rinaldi MD PhD [facility] CPT-64243 Level 3 Est. Patient 14:20:00 CDT Piotr Daley [facility] CPT-94406 Level 3 Est. Patient 14:15:22 BODY AND FENDER MECHANIC Piotr Daley [facility] CPT-82142 Level 3 Est. Patient 20:19:57 BODY AND FENDER MECHANIC Piotr Daley [facility] CPT-64657 Level 3 Est. Patient 16:44:32 CDT Piotr Daley [facility] CPT-48630 Level 3 Est. Patient 08:48:46 BODY AND FENDER MECHANIC Piotr Daley [facility] CPT-80751 Level 3 Est. Patient 21:01:21 CDT Piotr Wilson [facility] Procedures Code Procedure Name Date Entry Date Standard Description CPT-70588 BMP - LAB USE ONLY 17:19:11 BODY AND FENDER MECHANIC CPT-61137 PT/INR - LAB USE ONLY 17:19:10 BODY AND FENDER MECHANIC CPT-86827 Venipuncture Draw Fee 17:19:10 BODY AND FENDER MECHANIC CPT-75295 PT/INR - LAB USE ONLY 08:12:25 BODY AND FENDER MECHANIC CPT-20387 Venipuncture Draw Fee 08:12:24 BODY AND FENDER MECHANIC CPT-28476 Venipuncture Draw Fee 11:31:07 BODY AND FENDER MECHANIC CPT-24967 TPSA - LAB USE ONLY 11:31:07 BODY AND FENDER MECHANIC CPT-49635 PT/INR - LAB USE ONLY 11:31:07 BODY AND FENDER MECHANIC CPT-G0439 [facility] Annual Wellness Exam 09:59:29 BODY AND FENDER MECHANIC CPT-98807 Creatinine - LAB USE ONLY 14:37:55 BODY AND FENDER MECHANIC CPT-04073 PT/INR - LAB USE ONLY 14:37:55 BODY AND FENDER MECHANIC CPT-18670 Venipuncture Draw Fee 14:37:55 BODY AND FENDER MECHANIC CPT-46160 LS spine comp w obliques - XRAY USE ONLY 12:59:25 BODY AND FENDER MECHANIC CPT-41995 PT/INR - LAB USE ONLY 13:49:20 CDT CPT-80794 Venipuncture Draw Fee 13:49:19 CDT CPT-57872 PT/INR - LAB USE ONLY 15:48:49 CDT CPT-95926 Venipuncture Draw Fee 15:48:49 CDT CPT-95154 Venipuncture Draw Fee 11:31:59 CDT CPT-11624 PT/INR - LAB USE ONLY 11:31:59 CDT CPT-39502 Venipuncture Draw Fee 13:29:15 CDT CPT-59721 Thoracolumbar AP/Lat 15:19:19 BODY AND FENDER MECHANIC CPT-G0438 Initial Annual Wellness Exam 12:18:54 BODY AND FENDER MECHANIC CPT-69790 Knee 3V 09:57:38 CDT CPT-OV Office Visit 15:45:01 BODY AND FENDER MECHANIC CPT-90422 Abd compl w upright 17:10:25 CDT
--- OUTSIDE RECORDS SUMMARY | 2018-07-18 08:25 | XMS REPORT | Clinical Summary ---
Author Author Admin, [employer] Organization [facility] Address Unknown Phone Unavailable Allergies, Adverse Reactions, [...] neoplasm of prostate V10.46 Active Alina Meyers [employer]REL [employer] Personal history of malignant neoplasm of prostate Coronary artery disease 414.00 Active Alina Meyers APRN Coronary atherosclerosis of unspecified type of vessel, [place] or graft Back pain, thoracic region, left [...] THROMBOPHLEBITIS, LEG, 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 Inactive Sirisha Chen EZE DEEP VENOUS THROMBOPHLEBITIS, LEG, 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 Inactive Sirisha Chen CHARGE MANAGER Seborrheic keratosis ICD-702.19 Inactive Sirisha Chen CHARGE MANAGER Bronchitis-Acute ICD-466.0 Inactive Piotr Daley DO Leg pain, right ICD-729.5 Inactive Sirisha Chen CHARGE MANAGER Right leg pain ICD-729.5 Inactive Sirisha Chen CHARGE MANAGER Bronchitis-Acute ICD-466.0 Inactive Sirisha Chen CHARGE MANAGER Knee pain, left ICD-719.46 Inactive Sirisha Chen CHARGE MANAGER Actinic keratoses ICD-702.0 Inactive Sirisha Chen CHARGE MANAGER Back pain, thoracic region, left ICD-724.1 Inactive Piotr Katie Edi LEON Thoracic back pain ICD-724.5 Inactive Sirisha Gustavo LOO Back pain lumbar ICD-724.2 Inactive Sirisha Gustavo LOO Insect bite ICD-919.4 Inactive Sirisha Chen LPN Pruritus ICD-698.9 Inactive Sirisha Gustavo LOO 04/09 Medication List Medication Instructions Start Date Stop Date Generic Name NDC Status Provider Patient Instruction CYCLOBENZAPRINE HCL 10 MG ORAL TABLET 1 tablet by mouth three times daily as needed for muscle spasm/pain CYCLOBENZAPRINE HCL 63830260769 Active Piotr Daley DO Active PREDNISONE 20 MG ORAL TABLET two tabs by mouth today, then one tab by mouth days two and three PREDNISONE 57791754031 Active Piotr Daley DO Active ZITHROMAX 250 MG ORAL TABLET Take two (2 ) tablets day one, then one (1) tablet a day for four (4) more days AZITHROMYCIN 17321923307 Active Piotr Daley DO Active PROAIR HFA 108 (90 BASE) MCG/ACT INHALATION AEROSOL SOLUTION 1-2 puffs four times a day as needed ALBUTEROL SULFATE 15199972438 No Longer Active Emelyn Norris Active DOXYCYCLINE HYCLATE 100 MG ORAL CAPSULE 1 cap by mouth BID x10 days DOXYCYCLINE HYCLATE 11098482664 No Longer Active Nella Harris APRN Active WARFARIN SODIUM 5 MG ORAL TABLET 1 tablet daily M-S, 1/2 tab on Heart WARFARIN SODIUM 18564800827 Active Piotr Daley DO Active PREDNISONE 20 MG ORAL TABLET 2 tabs daily for 3 days, 1 tab daily for 3 days, 1/2 tab daily for 2 days PREDNISONE 82883328549 No Longer Active Matthew Rangel MD Active TRAMADOL HCL 50 MG ORAL TABLET 1 po tid with ES Tylenol TRAMADOL HCL 87675859394 No Longer Active Matthew Rangel MD Active GABAPENTIN 300 MG ORAL CAPSULE 1 po q hs for nerve pain GABAPENTIN 75966665484 No Longer Active Matthew Rangel MD Active PREDNISONE 20 MG ORAL TABLET 2 tablets today, then 1 tablet days 2 through 4 PREDNISONE 41777387660 No Longer Active Piotr Daley DO Active AZITHROMYCIN 250 MG ORAL TABLET 2 po qd x 1 day, then 1 po qd x 4 days 07/12 AZITHROMYCIN 36367969264 No Longer Active Piotr Daley DO Active IBUPROFEN 800 MG ORAL TABLET 1 tab every 8 hours as needed 07/12 IBUPROFEN 14835212826 No Longer Active Piotr Daley DO Active LOMOTIL 2.5-0.025 MG ORAL TABLET 1 to 2 four times a day as needed for diarrhea DIPHENOXYLATE-ATROPINE 30726001023 No Longer Active Piotr Daley DO Active WARFARIN SODIUM 4 MG ORAL TABLET 1 tab every evening WARFARIN SODIUM 77313458392 No Longer Active Piotr Daley DO Active PREDNISONE 20 MG ORAL TABLET 1 tablet twice daily for 2 days, then 1 tablet once daily for 2 days PREDNISONE 35174926874 No Longer Active Piotr Daley DO Active PROMETHAZINE HCL 25 MG ORAL TABLET 1 four times a day as needed for nausea/ vomiting PROMETHAZINE HCL 08784032960 No Longer Active Piotr Daley DO Active TUSSIONEX PENNKINETIC ER 10-8 MG/5ML ORAL SUSPENSION EXTENDED RELEASE 5ml po q12hr PRN Cough HYDROCOD POLST-CHLORPHEN POLST 25259948957 No Longer Active Piotr Daley DO Active AZITHROMYCIN 250 MG ORAL TABLET 2 po qd x 1 day, then 1 po qd x 4 days 10/13 AZITHROMYCIN 89864670253 No Longer Active Piotr Daley DO Active AZITHROMYCIN 250 MG ORAL TABLET 2 po qd x 1 day, then 1 po qd x 4 days 05/07 AZITHROMYCIN 55858152541 No Longer Active Piotr Daley DO Active LISINOPRIL-HYDROCHLOROTHIAZIDE 10-12.5 MG ORAL TABLET 1 tab by mouth daily LISINOPRIL-HYDROCHLOROTHIAZIDE 41764906783 Active Piotr Daley DO Active LISINOPRIL 10 MG ORAL TABLET 1/2-1 tab po every other day LISINOPRIL 60271943056 No Longer Active Piotr Daley DO Active VENTOLIN HFA 108 (90 Base) MCG/ACT INHALATION AEROSOL SOLUTION 2 puffs four times a day PRN cough ALBUTEROL SULFATE 92322229407 No Longer Active Piotr Daley DO Active NYSTATIN-TRIAMCINOLONE 894356-2.1 UNIT/GM-% EXTERNAL CREAM Apply to area BID NYSTATIN-TRIAMCINOLONE 45093605091 No Longer Active Alena Chavira CHARGE MANAGER Active PHISOHEX 3 % LIQD Use Directed HEXACHLOROPHENE 95913408500 No Longer Active Sandra Brad Active AZITHROMYCIN 250 MG ORAL TABLET 2 po qd x 1 day, then 1 po qd x 4 days 10/21 AZITHROMYCIN 63416833686 No Longer Active Katrina Rinaldi MD PhD Active AZITHROMYCIN 250 MG ORAL TABLET 2 po qd x 1 day, then 1 po qd x 4 days 10/16 AZITHROMYCIN 75947731283 No Longer Active Piotr Daley DO Active AZITHROMYCIN 500 MG INTRAVENOUS SOLUTION RECONSTITUTED 1 po q day AZITHROMYCIN 92584346421 No Longer Active Piotr Daley DO Active NYSTATIN-TRIAMCINOLONE 606606-5.1 UNIT/GM-% EXTERNAL CREAM apply bid NYSTATIN-TRIAMCINOLONE 49193235950 No Longer Active Piotr Daley DO Active IBUPROFEN 800 MG ORAL TABLET 1 po q 8 hours prn pain sparinly IBUPROFEN 34643622139 No Longer Active Piotr Daley DO Active VITAMIN D3 5000 UNIT ORAL CAPSULE 1 po daily CHOLECALCIFEROL 48973739315 Active Piotr Daley DO Active IBUPROFEN 800 MG ORAL TABLET 1 po q 8 hours prn pain sparinly IBUPROFEN 800 MG ORAL TABLET 182264 IBUPROFEN Inactive NYSTATIN-TRIAMCINOLONE 231047-5.1 UNIT/GM-% EXTERNAL CREAM apply bid NYSTATIN-TRIAMCINOLONE 356144-2.1 UNIT/GM-% EXTERNAL CREAM 1524597 NYSTATIN-TRIAMCINOLONE Inactive AZITHROMYCIN 500 MG INTRAVENOUS SOLUTION RECONSTITUTED 1 po q day AZITHROMYCIN 500 MG INTRAVENOUS SOLUTION RECONSTITUTED 98588877381 AZITHROMYCIN Inactive VENTOLIN HFA 108 (90 Base) MCG/ACT INHALATION AEROSOL SOLUTION 2 puffs four times a day PRN cough VENTOLIN HFA 108 (90 Base) MCG/ ACT INHALATION AEROSOL SOLUTION ALBUTEROL SULFATE Inactive LISINOPRIL 10 MG ORAL TABLET 1/2-1 tab po every other day LISINOPRIL 10 MG ORAL TABLET 625434 LISINOPRIL Inactive TUSSIONEX PENNKINETIC ER 10-8 MG/5ML ORAL SUSPENSION EXTENDED RELEASE 5ml po q12hr PRN Cough TUSSIONEX PENNKINETIC ER 10-8 MG/5ML ORAL SUSPENSION EXTENDED RELEASE HYDROCOD POLST-CHLORPHEN POLST Inactive PROMETHAZINE HCL 25 MG ORAL TABLET 1 four times a day as needed for nausea/ vomiting PROMETHAZINE HCL 25 MG ORAL TABLET 379542 PROMETHAZINE HCL Inactive PREDNISONE 20 MG ORAL TABLET 1 tablet twice daily for 2 days, then 1 tablet once daily for 2 days PREDNISONE 20 MG ORAL TABLET 753123 PREDNISONE Inactive WARFARIN SODIUM 4 MG ORAL TABLET 1 tab every evening WARFARIN SODIUM 4 MG ORAL TABLET 733197 WARFARIN SODIUM Inactive LOMOTIL 2.5-0.025 MG ORAL TABLET 1 to 2 four times a day as needed for diarrhea LOMOTIL 2.5-0.025 MG ORAL TABLET 6631742 DIPHENOXYLATE-ATROPINE Inactive IBUPROFEN 800 MG ORAL TABLET 1 tab every 8 hours as needed 07/12 IBUPROFEN 800 MG ORAL TABLET 187063 IBUPROFEN Inactive PREDNISONE 20 MG ORAL TABLET 2 tablets today, then 1 tablet days 2 through 4 PREDNISONE 20 MG ORAL TABLET 083065 PREDNISONE Inactive GABAPENTIN 300 MG ORAL CAPSULE 1 po q hs for nerve pain GABAPENTIN 300 MG ORAL CAPSULE 491267 GABAPENTIN Inactive TRAMADOL HCL 50 MG ORAL TABLET 1 po tid with ES Tylenol TRAMADOL HCL 50 MG ORAL TABLET 398844 TRAMADOL HCL Inactive PROAIR HFA 108 (90 BASE) MCG/ACT INHALATION AEROSOL SOLUTION 1-2 puffs four times a day as needed PROAIR HFA 108 (90 BASE) MCG/ACT INHALATION AEROSOL SOLUTION ALBUTEROL SULFATE Inactive AZITHROMYCIN 250 MG ORAL TABLET 2 po qd x 1 day, then 1 po qd x 4 days 10/16 AZITHROMYCIN 250 MG ORAL TABLET 528706 AZITHROMYCIN Inactive AZITHROMYCIN 250 MG ORAL TABLET 2 po qd x 1 day, then 1 po qd x 4 days 10/21 AZITHROMYCIN 250 MG ORAL TABLET 731456 AZITHROMYCIN Inactive NYSTATIN-TRIAMCINOLONE 535919-6.1 UNIT/GM-% EXTERNAL CREAM Apply to area BID NYSTATIN-TRIAMCINOLONE 765343-7.1 UNIT/GM-% EXTERNAL CREAM 8105183 NYSTATIN-TRIAMCINOLONE Inactive AZITHROMYCIN 250 MG ORAL TABLET 2 po qd x 1 day, then 1 po qd x 4 days 05/07 AZITHROMYCIN 250 MG ORAL TABLET 744740 AZITHROMYCIN Inactive AZITHROMYCIN 250 MG ORAL TABLET 2 po qd x 1 day, then 1 po qd x 4 days 10/13 AZITHROMYCIN 250 MG ORAL TABLET 946607 AZITHROMYCIN Inactive AZITHROMYCIN 250 MG ORAL TABLET 2 po qd x 1 day, then 1 po qd x 4 days 07/12 AZITHROMYCIN 250 MG ORAL TABLET 380765 AZITHROMYCIN Inactive PREDNISONE 20 MG ORAL TABLET 2 tabs daily for 3 days, 1 tab daily for 3 days, 1/2 tab daily for 2 days PREDNISONE 20 MG ORAL TABLET 342049 PREDNISONE Inactive DOXYCYCLINE HYCLATE 100 MG ORAL CAPSULE 1 cap by mouth BID x10 days DOXYCYCLINE HYCLATE 100 MG ORAL CAPSULE 6184188 DOXYCYCLINE HYCLATE Inactive Advance Directives Directive Description [...] Panel - Chemistry sodium, serum 141 mmol/L 403-815 4582/01/24 potassium, serum 4.3 mmol/L 3.5-5.2 chloride, serum [...] % 11.0-15.0 platelet count 172 THOUSAND/UL 10*3/mm3 872-487 8048/04/12 mean platelet volume 8.6 fL 7.5-12.5 Lab Report: Prothrombin Time - Coagulation prothrombin time (patient) 27.8 SECS s 11.1-13.4 international normalized ratio (INR) 4.2 1.0-3.5 Lab Report: Prothrombin Time Hemochron - Coagulation prothrombin time (patient) 33.0 SECS s 18.9-24.9 Encounters Code Encounter Date Provider Facility CPT-84793 Level 3 Est. Patient 15:56:17 CLINIC ASSISTANT Piotr Daley DO [facility] CPT-47107 Level 3 Est. Patient 10:34:54 CLINIC ASSISTANT Piotr Daley DO [facility] CPT-88938 Level 3 Est. Patient 17:10:19 MALACIH Harris APRN [facility] CPT-55227 Level 3 Est. Patient 10:48:17 CLINIC ASSISTANT Matthew Rangel MD [facility] CPT-48024 Level 4 Est. Patient 17:15:07 CLINIC ASSISTANT Piotr Daley [facility] CPT-45891 Level 3 Est. Patient 12:46:13 CLINIC ASSISTANT Piotr Daley [facility] CPT-53727 Level 3 Est. Patient 15:14:31 CLINIC ASSISTANT Piotr Daley [facility] CPT-11476 Level 3 Est. Patient 09:20:13 CLINIC ASSISTANT Piotr Daley [facility] CPT-55148 Level 3 Est. Patient 09:49:40 CDT Piotr Daley [facility] CPT-58169 Level 3 Est. Patient 16:28:[address] [facility] CPT-95263 Level 3 Est. Patient 12:41:58 CLINIC ASSISTANT Piotr Daley [facility] CPT-65151 Level 3 Est. Patient 09:21:24 CDT Piotr Daley [facility] CPT-56151 Level 3 Est. Patient 09:21:11 CDT Piotr Daley [facility] CPT-27563 Level 3 Est. Patient 11:16:29 CLINIC ASSISTANT Piotr Daley [facility] CPT-30319 Level 3 Est. Patient 18:40:19 CLINIC ASSISTANT Piotr Daley [facility] CPT-55388 Level 3 Est. Patient 19:30:[address] [facility] CPT-48715 Level 3 Est. Patient 22:06:44 CDT Katrina Rinaldi MD PhD [facility]-13422 Level 3 Est. Patient 14:20:[address] [facility] CPT-24385 Level 3 Est. Patient 14:15:22 CLINIC ASSISTANT Piotr Daley [facility] CPT-25143 Level 3 Est. Patient 20:19:57 CLINIC ASSISTANT Piotr Daley [facility] CPT-79575 Level 3 Est. Patient 16:44:[address] [facility] CPT-90344 Level 3 Est. Patient 08:48:46 CLINIC ASSISTANT Piotr Daley [facility] CPT-67271 Level 3 Est. Patient 21:01:[address] [facility] Procedures Code Procedure Name Date Entry Date Standard Description CPT-G0439 Subsequent Annual Wellness Exam 10:34:52 [facility] CPT-92744 BMP - LAB USE ONLY 17:19:11 [facility] CPT-79156 PT/INR - LAB USE ONLY 17:19:10 [facility] CPT-85987 Venipuncture Draw Fee 17:19:10 [facility] CPT-77820 PT/INR - LAB USE ONLY 08:12:25 CLINIC ASSISTANT CPT-07831 Venipuncture Draw Fee 08:12:24 [facility] CPT-81931 Venipuncture Draw Fee 11:31:07 CLINIC ASSISTANT CPT-86993 TPSA - LAB USE ONLY 11:31:07 CLINIC ASSISTANT CPT-81890 PT/INR - LAB USE ONLY 11:31:07 [facility] CPT-G0439 Subsequent Annual Wellness Exam 09:59:29 CLINIC ASSISTANT CPT-70742 Creatinine - LAB USE ONLY 14:37:55 CLINIC ASSISTANT CPT-99096 PT/INR - LAB USE ONLY 14:37:55 CLINIC ASSISTANT CPT-73389 Venipuncture Draw Fee 14:37:55 CLINIC ASSISTANT CPT-38110 LS spine comp w obliques - XRAY USE ONLY 12:59:25 CLINIC ASSISTANT CPT-76546 PT/INR - LAB USE ONLY 13:49:20 CDT CPT-54711 Venipuncture Draw Fee 13:49:19 CDT CPT-26695 PT/INR - LAB USE ONLY 15:48:49 CDT CPT-69499 Venipuncture Draw Fee 15:48:49 CDT CPT-00894 Venipuncture Draw Fee 11:31:59 CDT CPT-29476 PT/INR - LAB USE ONLY 11:31:59 CDT CPT-52744 Venipuncture Draw Fee 13:29:15 CDT CPT-20248 Thoracolumbar AP/Lat 15:19:19 CLINIC ASSISTANT CPT-G0438 Initial Annual Wellness Exam 12:18:54 CLINIC ASSISTANT CPT-95643 Knee 3V 09:57:38 CDT CPT-OV Office Visit 15:45:01 CLINIC ASSISTANT CPT-17394 Abd compl w upright 17:10:25 CDT
--- OUTSIDE RECORDS SUMMARY | 2018-07-18 08:27 | XMS REPORT | Clinical Summary ---
Author Author Admin, Isidra Organization [employer] Address Unknown Phone Unavailable Allergies, Adverse Reactions, Alerts Allergy Name Reaction Description Start Date Severity Status Provider PENICILLINS Mild No Longer Active Piotr Daley DO PENICILLINS Critical No Longer Active Piotr Wilson Edi DO PENICILLINS UNK Inactive Bernadette Elder Conditions or Problems Problem Name Problem Code Onset Date Status Entry Date Provider Comment Standard Description Annotate CAROTID ARTERY DISEASE 433.10 Active Piort Daley DO Occlusion and stenosis of carotid [...] Coronary atherosclerosis of unspecified type of vessel, [place] or graft Back pain, thoracic region, left [...] times a day as needed ALBUTEROL SULFATE 66191563151 Active Matthew Rangel MD Active PREDNISONE 20 MG TAB 2 tabs daily for 3 days, 1 tab daily for 3 days, 1/2 tab daily for 2 days PREDNISONE 45986312498 No Longer Active Matthew Rangel MD Active TRAMADOL HCL 50 MG TABS 1 po tid with ES Tylenol TRAMADOL HCL 42193281057 No Longer Active Matthew Rangel MD Active GABAPENTIN 300 MG CAPS 1 po q hs for nerve pain GABAPENTIN 47897219667 No Longer Active Matthew Rangel MD Active WARFARIN SODIUM 5 MG TABS 1 tablet daily WARFARIN SODIUM 17286157569 Active Piotr Daley DO Active PREDNISONE 20 MG TAB 2 tablets today, then 1 tablet days 2 through 4 PREDNISONE 86377162891 No Longer Active Piotr Daley DO Active AZITHROMYCIN 250 MG TABS 2 po qd x 1 day, then 1 po qd x 4 days AZITHROMYCIN 44312117488 No Longer Active Piotr Daley DO Active IBUPROFEN 800 MG TABS 1 tab every 8 hours as needed IBUPROFEN 88648939891 No Longer Active Piotr Daley DO Active LOMOTIL 2.5-0.025 MG TAB 1 to 2 four times a day as needed for diarrhea 10/13 DIPHENOXYLATE-ATROPINE 30042092050 No Longer Active Piotr Daley DO Active WARFARIN SODIUM 4 MG TABS 1 tab every evening WARFARIN SODIUM 24412975972 No Longer Active Piotr Daley DO Active PREDNISONE 20 MG TAB 1 tablet twice daily for 2 days, then 1 tablet once daily for 2 days PREDNISONE 86123548432 No Longer Active Piotr Daley DO Active PROMETHAZINE HCL 25 MG TABS 1 four times a day as needed for nausea/vomiting PROMETHAZINE HCL 60188001898 No Longer Active Piotr Daley DO Active TUSSIONEX PENNKINETIC ER 10-8 MG/5ML LQCR 5ml po q12hr PRN Cough HYDROCOD POLST-CHLORPHEN POLST 76392802875 No Longer Active Piotr Daley DO Active AZITHROMYCIN 250 MG TABS 2 po qd x 1 day, then 1 po qd x 4 days AZITHROMYCIN 40738633430 No Longer Active Piotr Daley DO Active AZITHROMYCIN 250 MG TABS 2 po qd x 1 day, then 1 po qd x 4 days AZITHROMYCIN 70961130079 No Longer Active Piotr Daley DO Active LISINOPRIL-HYDROCHLOROTHIAZIDE 10-12.5 MG TABS 1 tab by mouth daily LISINOPRIL-HYDROCHLOROTHIAZIDE 21443875275 Active Simi Meyers Active LISINOPRIL 10 MG TABS 1/2-1 tab po every other day LISINOPRIL 08250280609 No Longer Active Piotr Daley DO Active VENTOLIN HFA 108 (90 BASE) MCG/ACT AERS 2 puffs four times a day PRN cough ALBUTEROL SULFATE 66535236641 No Longer Active Piotr Daley DO Active NYSTATIN-TRIAMCINOLONE 260110-1.1 UNIT/GM-% CREA Apply to area BID NYSTATIN-TRIAMCINOLONE 15807265931 No Longer Active Alena Chavira LEASE PURCHASE DRIVER Active PHISOHEX 3 % LIQD Use Directed HEXACHLOROPHENE 26523229805 No Longer Active Sandra Dentarger Active AZITHROMYCIN 250 MG TABS 2 po qd x 1 day, then 1 po qd x 4 days AZITHROMYCIN 52699226693 No Longer Active Katrina Rinaldi MD PhD Active AZITHROMYCIN 250 MG TABS 2 po qd x 1 day, then 1 po qd x 4 days AZITHROMYCIN 13816468396 No Longer Active Piotr Daley DO Active AZITHROMYCIN 500 MG SOLR 1 po q day AZITHROMYCIN 52983288862 No Longer Active Piotr Daley DO Active NYSTATIN-TRIAMCINOLONE 410156-7.1 UNIT/GM-% CREA apply bid 08/19 NYSTATIN-TRIAMCINOLONE [id number] No Longer Active Piotr Daley DO Active IBUPROFEN 800 MG TABS 1 po q 8 hours prn pain sparinly IBUPROFEN 57952864288 No Longer Active Piotr Daley DO Active VITAMIN D3 5000 UNIT CAPS 1 po daily CHOLECALCIFEROL 65920482681 Active Piotr Daley DO Active IBUPROFEN 800 MG TABS 1 po q 8 hours prn pain sparinly IBUPROFEN 800 MG TABS 297023 IBUPROFEN Inactive NYSTATIN-TRIAMCINOLONE 781201-4.1 UNIT/GM-% CREA apply bid 08/19 NYSTATIN-TRIAMCINOLONE 111670-3.1 UNIT/GM-% CREA 5519289 NYSTATIN- TRIAMCINOLONE Inactive AZITHROMYCIN 500 MG SOLR 1 po q day AZITHROMYCIN 500 MG SOLR 84108026477 AZITHROMYCIN Inactive VENTOLIN HFA 108 (90 BASE) MCG/ACT AERS 2 puffs four times a day PRN cough VENTOLIN HFA 108 (90 BASE) MCG/ACT AERS ALBUTEROL SULFATE Inactive LISINOPRIL 10 MG TABS 1/2-1 tab po every other day LISINOPRIL 10 MG TABS 977880 LISINOPRIL Inactive TUSSIONEX PENNKINETIC ER 10-8 MG/5ML LQCR 5ml po q12hr PRN Cough TUSSIONEX PENNKINETIC ER 10-8 MG/5ML LQCR HYDROCOD POLST- CHLORPHEN POLST Inactive PROMETHAZINE HCL 25 MG TABS 1 four times a day as needed for nausea/vomiting PROMETHAZINE HCL 25 MG TABS 612323 PROMETHAZINE HCL Inactive PREDNISONE 20 MG TAB 1 tablet twice daily for 2 days, then 1 tablet once daily for 2 days PREDNISONE 20 MG TAB 472327 PREDNISONE Inactive WARFARIN SODIUM 4 MG TABS 1 tab every evening WARFARIN SODIUM 4 MG TABS 357797 WARFARIN SODIUM Inactive LOMOTIL 2.5-0.025 MG TAB 1 to 2 four times a day as needed for diarrhea 10/13 LOMOTIL 2.5-0.025 MG TAB 1565070 DIPHENOXYLATE-ATROPINE Inactive IBUPROFEN 800 MG TABS 1 tab every 8 hours as needed IBUPROFEN 800 MG TABS 637411 IBUPROFEN Inactive PREDNISONE 20 MG TAB 2 tablets today, then 1 tablet days 2 through 4 PREDNISONE 20 MG TAB 388850 PREDNISONE Inactive GABAPENTIN 300 MG CAPS 1 po q hs for nerve pain GABAPENTIN 300 MG CAPS 708417 GABAPENTIN Inactive TRAMADOL HCL 50 MG TABS 1 po tid with ES Tylenol TRAMADOL HCL 50 MG TABS 677589 TRAMADOL HCL Inactive AZITHROMYCIN 250 MG TABS 2 po qd x 1 day, then 1 po qd x 4 days AZITHROMYCIN 250 MG TABS 6330946 AZITHROMYCIN Inactive AZITHROMYCIN 250 MG TABS 2 po qd x 1 day, then 1 po qd x 4 days AZITHROMYCIN 250 MG TABS 3422288 AZITHROMYCIN Inactive NYSTATIN-TRIAMCINOLONE 564067-3.1 UNIT/GM-% CREA Apply to area BID NYSTATIN-TRIAMCINOLONE 389376-7.1 UNIT/GM-% CREA 7674956 NYSTATIN-TRIAMCINOLONE Inactive AZITHROMYCIN 250 MG TABS 2 po qd x 1 day, then 1 po qd x 4 days AZITHROMYCIN 250 MG TABS 5910601 AZITHROMYCIN Inactive AZITHROMYCIN 250 MG TABS 2 po qd x 1 day, then 1 po qd x 4 days AZITHROMYCIN 250 MG TABS 6442588 AZITHROMYCIN Inactive AZITHROMYCIN 250 MG TABS 2 po qd x 1 day, then 1 po qd x 4 days AZITHROMYCIN 250 MG TABS 8277250 AZITHROMYCIN Inactive PREDNISONE 20 MG TAB 2 tabs daily for 3 days, 1 tab daily for 3 days, 1/2 tab daily for 2 days PREDNISONE 20 MG TAB 759512 PREDNISONE Inactive Advance Directives Directive Description Start [...] Panel - Chemistry sodium, serum 141 mmol/L 862-356 1491/01/24 potassium, serum 4.3 mmol/L 3.5-5.2 chloride, serum 103 mmol/L 98-107 carbon dioxide, venous blood 30.7 mmol/L 21.0-32.0 blood glucose 90 mg/dL 65-110 calcium, serum 8.5 mg/dL 8.5-10.1 urea nitrogen, blood 16 mg/dL 7-18 creatinine, serum 1.09 mg/dL 0.55-1.30 Lab Report: Comp. Metabolic Panel - Chemistry sodium, serum 141 mmol/L 773-788 7501/06/28 carbon dioxide, venous blood 31.0 mmol/L 21.0-32.0 [...] 1.0-3.5 Encounters Code Encounter Date Provider Facility CPT-15261 Level 3 Est. Patient 10:48:17 [employer] Matthew Rangel MD [facility] CPT-03692 Level 4 Est. Patient 17:15:07 [employer] Piotr Daley [facility] CPT-17167 Level 3 Est. Patient 12:46:13 [employer] Piotr Daley [facility] CPT-41917 Level 3 Est. Patient 15:14:31 [employer] Piotr Daley [facility] CPT-92328 Level 3 Est. Patient 09:20:13 [employer] Piotr Daley [facility] CPT-19982 Level 3 Est. Patient 09:49:40 CDT Piotr Wilson [facility] CPT-94168 Level 3 Est. Patient 16:28:11 CDT Piotr Daley [facility] CPT-65106 Level 3 Est. Patient 12:41:58 [employer] Piotr Daley [facility] CPT-31075 Level 3 Est. Patient 09:21:24 CDT Piotr Daley [facility] CPT-67019 Level 3 Est. Patient 09:21:11 CDT Piotr Wilson [facility] CPT-91008 Level 3 Est. Patient 11:16:29 [employer] Piotr Daley [facility] CPT-03661 Level 3 Est. Patient 18:40:19 [employer] Piotr Daley [facility] CPT-51296 Level 3 Est. Patient 19:30:50 CDT Piotr Wilson [facility] CPT-32837 Level 3 Est. Patient 22:06:44 CDT Katrina Rinaldi MD [facility] CPT-37077 Level 3 Est. Patient 14:20:00 CDT Piotr Daley [facility] CPT-72667 Level 3 Est. Patient 14:15:22 [employer] Piotr Daley [facility] CPT-87197 Level 3 Est. Patient 20:19:57 [employer] Piotr Daley [facility] CPT-15652 Level 3 Est. Patient 16:44:32 CDT Piotr Daley [facility] CPT-86353 Level 3 Est. Patient 08:48:46 [employer] Piotr Daley [facility] CPT-60148 Level 3 Est. Patient 21:01:21 CDT Piotr Wilson [facility] Procedures Code Procedure Name Date Entry Date Standard Description CPT-40080 BMP - LAB USE ONLY 17:19:11 [employer] CPT-87234 PT/INR - LAB USE ONLY 17:19:10 [employer] CPT-79699 Venipuncture Draw Fee 17:19:10 [employer] CPT-89096 PT/INR - LAB USE ONLY 08:12:25 [employer] CPT-81597 Venipuncture Draw Fee 08:12:24 [employer] CPT-11400 Venipuncture Draw Fee 11:31:07 [employer] CPT-82277 TPSA - LAB USE ONLY 11:31:07 [employer] CPT-26343 PT/INR - LAB USE ONLY 11:31:07 [employer] CPT-G0439 [facility] Annual Wellness Exam 09:59:29 [employer] CPT-08389 Creatinine - LAB USE ONLY 14:37:55 [employer] CPT-56233 PT/INR - LAB USE ONLY 14:37:55 [employer] CPT-85232 Venipuncture Draw Fee 14:37:55 [employer] CPT-80538 LS spine comp w obliques - XRAY USE ONLY 12:59:25 [employer] CPT-11138 PT/INR - LAB USE ONLY 13:49:20 CDT CPT-80374 Venipuncture Draw Fee 13:49:19 CDT CPT-35022 PT/INR - LAB USE ONLY 15:48:49 CDT CPT-47181 Venipuncture Draw Fee 15:48:49 CDT CPT-87906 Venipuncture Draw Fee 11:31:59 CDT CPT-84741 PT/INR - LAB USE ONLY 11:31:59 CDT CPT-65316 Venipuncture Draw Fee 13:29:15 CDT CPT-75495 Thoracolumbar AP/Lat 15:19:19 [employer] CPT-G0438 Initial Annual Wellness Exam 12:18:54 [employer] CPT-14500 Knee 3V 09:57:38 CDT CPT-OV Office Visit 15:45:01 [employer] CPT-90349 Abd compl w upright 17:10:25 CDT
--- OUTSIDE RECORDS SUMMARY | 2018-07-18 08:28 | XMS REPORT | Clinical Summary ---
Author Author Admin, Bita Organization [facility] Address Unknown Phone Unavailable Allergies, Adverse [...] Coronary atherosclerosis of unspecified type of vessel, [place] or graft Back pain, thoracic region, left [...] Knee pain, left ICD-719.46 Inactive Sirisha Chen CUSHION INSTALLER Actinic keratoses ICD-702.0 Inactive Sirisha Chen CUSHION INSTALLER Back pain, thoracic region, left ICD-724.1 Inactive Piotr Daley DO Thoracic back pain ICD-724.5 Inactive Sirisha Chen CUSHION INSTALLER Back pain lumbar ICD-724.2 Inactive Sirisha Chen CUSHION INSTALLER Insect bite ICD-919.4 Inactive Sirisha Chen CUSHION INSTALLER Pruritus ICD-698.9 Inactive Sirisha Chen CUSHION INSTALLER 04/09 Bronchitis-Acute ICD-466.0 Inactive Sirisha Chen CUSHION INSTALLER Dyspnea ICD-786.09 Inactive Sirisha Chen CUSHION INSTALLER 05/09 Medication List Medication Instructions Start Date Stop Date Generic Name NDC Status Provider Patient Instruction WARFARIN SODIUM 4 MG ORAL TABLET 1 tablet by mouth daily except 2mg on Saturday and Saturday WARFARIN SODIUM 64928419047 Active Sirisha Chen EZE Active MELOXICAM 15 MG ORAL TABLET 1 po q day for pain with food MELOXICAM 75149529339 Active Piotr Daley DO Active PREDNISONE 10 MG ORAL TABLET 1 tablet by mouth daily PREDNISONE 83221937554 No Longer Active Emelyn Norris Active TESSALON PERLES 100 MG ORAL CAPSULE 1-2 tablet by mouth 3 times daily 04/16 BENZONATATE 31438198974 No Longer Active Emelyn Norris Active PREDNISONE 20 MG ORAL TABLET two tabs by mouth today, then one tab by mouth days two and three PREDNISONE 36598776824 No Longer Active Piotr Daley DO Active CYCLOBENZAPRINE HCL 10 MG ORAL TABLET 1 tablet by mouth three times daily as needed for muscle spasm/pain CYCLOBENZAPRINE HCL 75822073822 Active Sirisha Chen LPN Active ZITHROMAX 250 MG ORAL TABLET Take two (2 ) tablets day one, then one (1) tablet a day for four (4) more days AZITHROMYCIN 74450178846 No Longer Active Piotr Daley DO Active PROAIR HFA 108 (90 BASE) MCG/ACT INHALATION AEROSOL SOLUTION 1-2 puffs four times a day as needed ALBUTEROL SULFATE 36546931582 No Longer Active Emelyn Norris Active DOXYCYCLINE HYCLATE 100 MG ORAL CAPSULE 1 cap by mouth BID x10 days DOXYCYCLINE HYCLATE 53224357347 No Longer Active Nella Harris APRN Active PREDNISONE 20 MG ORAL TABLET 2 tabs daily for 3 days, 1 tab daily for 3 days, 1/2 tab daily for 2 days PREDNISONE 01698458796 No Longer Active Matthew Rangel MD Active TRAMADOL HCL 50 MG ORAL TABLET 1 po tid with ES Tylenol TRAMADOL HCL 04056259345 No Longer Active Matthew Rangel MD Active GABAPENTIN 300 MG ORAL CAPSULE 1 po q hs for nerve pain GABAPENTIN 31913293069 No Longer Active Matthew Rangel MD Active PREDNISONE 20 MG ORAL TABLET 2 tablets today, then 1 tablet days 2 through 4 PREDNISONE 54484602234 No Longer Active Piotr Daley DO Active AZITHROMYCIN 250 MG ORAL TABLET 2 po qd x 1 day, then 1 po qd x 4 days 07/12 AZITHROMYCIN 30563150369 No Longer Active Piotr Daley DO Active IBUPROFEN 800 MG ORAL TABLET 1 tab every 8 hours as needed 07/12 IBUPROFEN 02740894163 No Longer Active Piotr Daley DO Active LOMOTIL 2.5-0.025 MG ORAL TABLET 1 to 2 four times a day as needed for diarrhea DIPHENOXYLATE-ATROPINE 64288386266 No Longer Active Piotr Daley DO Active WARFARIN SODIUM 4 MG ORAL TABLET 1 tab every evening WARFARIN SODIUM 85649320228 No Longer Active Piotr Daley DO Active PREDNISONE 20 MG ORAL TABLET 1 tablet twice daily for 2 days, then 1 tablet once daily for 2 days PREDNISONE 60902160868 No Longer Active Piotr Daley DO Active PROMETHAZINE HCL 25 MG ORAL TABLET 1 four times a day as needed for nausea/ vomiting PROMETHAZINE HCL 70566072219 No Longer Active Piotr Daley DO Active TUSSIONEX PENNKINETIC ER 10-8 MG/5ML ORAL SUSPENSION EXTENDED RELEASE 5ml po q12hr PRN Cough HYDROCOD POLST-CHLORPHEN POLST 81188700237 No Longer Active Piotr Daley DO Active AZITHROMYCIN 250 MG ORAL TABLET 2 po qd x 1 day, then 1 po qd x 4 days 10/13 AZITHROMYCIN 58465231283 No Longer Active Piotr Daley DO Active AZITHROMYCIN 250 MG ORAL TABLET 2 po qd x 1 day, then 1 po qd x 4 days 05/07 AZITHROMYCIN 16728956005 No Longer Active Piotr Daley DO Active LISINOPRIL-HYDROCHLOROTHIAZIDE 10-12.5 MG ORAL TABLET 1 tab by mouth daily LISINOPRIL-HYDROCHLOROTHIAZIDE 82201544047 Active Piotr Daley DO Active LISINOPRIL 10 MG ORAL TABLET 1/2-1 tab po every other day LISINOPRIL 01413133894 No Longer Active Piotr Daley DO Active VENTOLIN HFA 108 (90 Base) MCG/ACT INHALATION AEROSOL SOLUTION 2 puffs four times a day PRN cough ALBUTEROL SULFATE 35059851436 No Longer Active Piotr Daley DO Active NYSTATIN-TRIAMCINOLONE 265280-4.1 UNIT/GM-% EXTERNAL CREAM Apply to area BID NYSTATIN-TRIAMCINOLONE 93608346422 No Longer Active Alena Chavira CUSHION INSTALLER Active PHISOHEX 3 % LIQD Use Directed HEXACHLOROPHENE 21003690983 No Longer Active Sandra Garnavillo Active AZITHROMYCIN 250 MG ORAL TABLET 2 po qd x 1 day, then 1 po qd x 4 days 10/21 AZITHROMYCIN 64552492895 No Longer Active Katrina Rinaldi MD PhD Active AZITHROMYCIN 250 MG ORAL TABLET 2 po qd x 1 day, then 1 po qd x 4 days 10/16 AZITHROMYCIN 23440187056 No Longer Active Piotr Daley DO Active AZITHROMYCIN 500 MG INTRAVENOUS SOLUTION RECONSTITUTED 1 po q day AZITHROMYCIN 45197434901 No Longer Active Piotr Daley DO Active NYSTATIN-TRIAMCINOLONE 681190-2.1 UNIT/GM-% EXTERNAL CREAM apply bid NYSTATIN-TRIAMCINOLONE 91822656396 No Longer Active Piotr Daley DO Active IBUPROFEN 800 MG ORAL TABLET 1 po q 8 hours prn pain sparinly IBUPROFEN 41374284830 No Longer Active Piotr Daley DO Active VITAMIN D3 5000 UNIT ORAL CAPSULE 1 po daily CHOLECALCIFEROL 28680438705 Active Piotr Daley DO Active DOXYCYCLINE HYCLATE 100 MG ORAL CAPSULE 1 cap by mouth BID x10 days DOXYCYCLINE HYCLATE 100 MG ORAL CAPSULE 2190427 DOXYCYCLINE HYCLATE Inactive IBUPROFEN 800 MG ORAL TABLET 1 po q 8 hours prn pain sparinly IBUPROFEN 800 MG ORAL TABLET 645463 IBUPROFEN Inactive IBUPROFEN 800 MG ORAL TABLET 1 tab every 8 hours as needed 07/12 IBUPROFEN 800 MG ORAL TABLET 016278 IBUPROFEN Inactive LOMOTIL 2.5-0.025 MG ORAL TABLET 1 to 2 four times a day as needed for diarrhea LOMOTIL 2.5-0.025 MG ORAL TABLET 2415842 DIPHENOXYLATE-ATROPINE Inactive NYSTATIN-TRIAMCINOLONE 864688-8.1 UNIT/GM-% EXTERNAL CREAM apply bid NYSTATIN-TRIAMCINOLONE 933095-6.1 UNIT/GM-% EXTERNAL CREAM 3467848 NYSTATIN-TRIAMCINOLONE Inactive NYSTATIN-TRIAMCINOLONE 417150-4.1 UNIT/GM-% EXTERNAL CREAM Apply to area BID NYSTATIN-TRIAMCINOLONE 397364-2.1 UNIT/GM-% EXTERNAL CREAM 6940018 NYSTATIN-TRIAMCINOLONE Inactive PREDNISONE 10 MG ORAL TABLET 1 tablet by mouth daily PREDNISONE 10 MG ORAL TABLET 135360 PREDNISONE Inactive PREDNISONE 20 MG ORAL TABLET two tabs by mouth today, then one tab by mouth days two and three PREDNISONE 20 MG ORAL TABLET 644887 PREDNISONE Inactive PREDNISONE 20 MG ORAL TABLET 2 tabs daily for 3 days, 1 tab daily for 3 days, 1/2 tab daily for 2 days PREDNISONE 20 MG ORAL TABLET 706483 PREDNISONE Inactive PREDNISONE 20 MG ORAL TABLET 1 tablet twice daily for 2 days, then 1 tablet once daily for 2 days PREDNISONE 20 MG ORAL TABLET 178353 PREDNISONE Inactive PREDNISONE 20 MG ORAL TABLET 2 tablets today, then 1 tablet days 2 through 4 PREDNISONE 20 MG ORAL TABLET 927806 PREDNISONE Inactive PROMETHAZINE HCL 25 MG ORAL TABLET 1 four times a day as needed for nausea/ vomiting PROMETHAZINE HCL 25 MG ORAL TABLET 284023 PROMETHAZINE HCL Inactive LISINOPRIL 10 MG ORAL TABLET 1/2-1 tab po every other day LISINOPRIL 10 MG ORAL TABLET 081579 LISINOPRIL Inactive TESSALON PERLES 100 MG ORAL CAPSULE 1-2 tablet by mouth 3 times daily 04/16 TESSALON PERLES 100 MG ORAL CAPSULE 400050 BENZONATATE Inactive TRAMADOL HCL 50 MG ORAL TABLET 1 po tid with ES Tylenol TRAMADOL HCL 50 MG ORAL TABLET 196937 TRAMADOL HCL Inactive GABAPENTIN 300 MG ORAL CAPSULE 1 po q hs for nerve pain GABAPENTIN 300 MG ORAL CAPSULE 972567 GABAPENTIN Inactive ZITHROMAX 250 MG ORAL TABLET Take two (2 ) tablets day one, then one (1) tablet a day for four (4) more days ZITHROMAX 250 MG ORAL TABLET 880864 AZITHROMYCIN Inactive AZITHROMYCIN 250 MG ORAL TABLET 2 po qd x 1 day, then 1 po qd x 4 days 05/07 AZITHROMYCIN 250 MG ORAL TABLET 951964 AZITHROMYCIN Inactive AZITHROMYCIN 250 MG ORAL TABLET 2 po qd x 1 day, then 1 po qd x 4 days 10/13 AZITHROMYCIN 250 MG ORAL TABLET 914682 AZITHROMYCIN Inactive AZITHROMYCIN 250 MG ORAL TABLET 2 po qd x 1 day, then 1 po qd x 4 days 07/12 AZITHROMYCIN 250 MG ORAL TABLET 075161 AZITHROMYCIN Inactive AZITHROMYCIN 250 MG ORAL TABLET 2 po qd x 1 day, then 1 po qd x 4 days 10/16 AZITHROMYCIN 250 MG ORAL TABLET 104876 AZITHROMYCIN Inactive AZITHROMYCIN 250 MG ORAL TABLET 2 po qd x 1 day, then 1 po qd x 4 days 10/21 AZITHROMYCIN 250 MG ORAL TABLET 887462 AZITHROMYCIN Inactive AZITHROMYCIN 500 MG INTRAVENOUS SOLUTION RECONSTITUTED 1 po q day AZITHROMYCIN 500 MG INTRAVENOUS SOLUTION RECONSTITUTED 83069563645 AZITHROMYCIN Inactive WARFARIN SODIUM 4 MG ORAL TABLET 1 tab every evening WARFARIN SODIUM 4 MG ORAL TABLET 177223 WARFARIN SODIUM Inactive VENTOLIN HFA 108 (90 [...] 18.9-24.9 Encounters Code Encounter Date Provider Facility CPT-92823 Level 3 Est. Patient 15:59:25 ROBOTICS TECHNOLOGIST Piotr Daley [facility] CPT-87199 Level 3 Est. Patient 12:33:59 ROBOTICS TECHNOLOGIST Piotr Daley [facility] CPT-61631 Level 3 Est. Patient 15:56:17 ROBOTICS TECHNOLOGIST Piotr Katie Edi [facility] CPT-79035 Level 3 Est. Patient 10:34:54 ROBOTICS TECHNOLOGIST Piotr Daley [facility] CPT-07360 Level 3 Est. Patient 17:10:19 CDT Nella Harris APRN [facility] CPT-49413 Level 3 Est. Patient 10:48:17 ROBOTICS TECHNOLOGIST Matthew Rangel MD [facility] CPT-56030 Level 4 Est. Patient 17:15:07 ROBOTICS TECHNOLOGIST Piotr Wilson [facility] CPT-37378 Level 3 Est. Patient 12:46:13 ROBOTICS TECHNOLOGIST Piotr Daley [facility] CPT-25434 Level 3 Est. Patient 15:14:31 ROBOTICS TECHNOLOGIST Piotr Daley [facility] CPT-94234 Level 3 Est. Patient 09:20:13 ROBOTICS TECHNOLOGIST Piotr Daley [facility] CPT-62985 Level 3 Est. Patient 09:49:40 CDT Piotr Daley [facility] CPT-04255 Level 3 Est. Patient 16:28:11 CDT Piotr Daley [facility] CPT-49823 Level 3 Est. Patient 12:41:58 ROBOTICS TECHNOLOGIST Piotr Daley [facility] CPT-58199 Level 3 Est. Patient 09:21:24 CDT Piotr Wilson [facility] CPT-62188 Level 3 Est. Patient 09:21:11 CDT Piotr Wilson [facility] CPT-59948 Level 3 Est. Patient 11:16:29 ROBOTICS TECHNOLOGIST Piotr Daley [facility] CPT-86366 Level 3 Est. Patient 18:40:19 ROBOTICS TECHNOLOGIST Piotr Daley [facility] CPT-14007 Level 3 Est. Patient 19:30:50 CDT Piotr Daley [facility] CPT-48606 Level 3 Est. Patient 22:06:44 CDT Katrina Rinaldi MD [facility] CPT-43893 Level 3 Est. Patient 14:20:00 CDT Piotr Daley [facility] CPT-89258 Level 3 Est. Patient 14:15:22 ROBOTICS TECHNOLOGIST Piotr Daley [facility] CPT-18699 Level 3 Est. Patient 20:19:57 ROBOTICS TECHNOLOGIST Piotr Daley [facility] CPT-04809 Level 3 Est. Patient 16:44:32 CDT Piotr Daley [facility] CPT-32140 Level 3 Est. Patient 08:48:46 ROBOTICS TECHNOLOGIST Piotr Daley [facility] CPT-95871 Level 3 Est. Patient 21:01:21 CDT Piotr Daley [facility] Procedures Code Procedure Name Date Entry Date Standard Description CPT-93578 Sacroiliac jt < 3V - XRAY USE ONLY 16:45:19 ROBOTICS TECHNOLOGIST 05/09 CPT-20160 LS spine comp w obliques - XRAY USE ONLY 14:52:26 ROBOTICS TECHNOLOGIST CPT-45104 Chest, 2 views 12:55:58 ROBOTICS TECHNOLOGIST CPT-G0439 [facility] Annual Wellness Exam 10:34:52 ROBOTICS TECHNOLOGIST CPT-95557 BMP - LAB USE ONLY 17:19:11 ROBOTICS TECHNOLOGIST CPT-99531 PT/INR - LAB USE ONLY 17:19:10 ROBOTICS TECHNOLOGIST CPT-90623 Venipuncture Draw Fee 17:19:10 ROBOTICS TECHNOLOGIST CPT-22109 PT/INR - LAB USE ONLY 08:12:25 ROBOTICS TECHNOLOGIST CPT-99981 Venipuncture Draw Fee 08:12:24 ROBOTICS TECHNOLOGIST CPT-04027 Venipuncture Draw Fee 11:31:07 ROBOTICS TECHNOLOGIST CPT-84051 TPSA - LAB USE ONLY 11:31:07 ROBOTICS TECHNOLOGIST CPT-53824 PT/INR - LAB USE ONLY 11:31:07 ROBOTICS TECHNOLOGIST CPT-G0439 Subsequent Annual Wellness Exam 09:59:29 ROBOTICS TECHNOLOGIST CPT-71860 Creatinine - LAB USE ONLY 14:37:55 ROBOTICS TECHNOLOGIST CPT-56261 PT/INR - LAB USE ONLY 14:37:55 ROBOTICS TECHNOLOGIST CPT-34920 Venipuncture Draw Fee 14:37:55 ROBOTICS TECHNOLOGIST CPT-19319 LS spine comp w obliques - XRAY USE ONLY 12:59:25 ROBOTICS TECHNOLOGIST CPT-41380 PT/INR - LAB USE ONLY 13:49:20 CDT CPT-28073 Venipuncture Draw Fee 13:49:19 CDT CPT-42765 PT/INR - LAB USE ONLY 15:48:49 CDT CPT-01930 Venipuncture Draw Fee 15:48:49 CDT CPT-93461 Venipuncture Draw Fee 11:31:59 CDT CPT-17868 PT/INR - LAB USE ONLY 11:31:59 CDT CPT-90009 Venipuncture Draw Fee 13:29:15 CDT CPT-32314 Thoracolumbar AP/Lat 15:19:19 ROBOTICS TECHNOLOGIST CPT-G0438 Initial Annual Wellness Exam 12:18:54 ROBOTICS TECHNOLOGIST CPT-49861 Knee 3V 09:57:38 CDT CPT-OV Office Visit 15:45:01 ROBOTICS TECHNOLOGIST CPT-15609 Abd compl w upright 17:10:25 CDT
--- OUTSIDE RECORDS SUMMARY | 2018-07-18 08:29 | XMS REPORT | Clinical Summary ---
Author Author Admin, YONG Organization [facility] Address Unknown Phone Unavailable Allergies, Adverse [...] for Saturday and 04/09 tablet. WARFARIN SODIUM 30496858297 Active Piotr Daley DO Active PREDNISONE 20 MG TAB 2 tablets today, then 1 tablet days 2 through 4 PREDNISONE 01601810698 No Longer Active Piotr Daley DO Active AZITHROMYCIN 250 MG TABS 2 po qd x 1 day, then 1 po qd x 4 days AZITHROMYCIN 09623452649 No Longer Active Piotr Daley DO Active IBUPROFEN 800 MG TABS 1 tab every 8 hours as needed IBUPROFEN 36413841514 No Longer Active Piotr Daley DO Active LOMOTIL 2.5-0.025 MG TAB 1 to 2 four times a day as needed for diarrhea 10/13 DIPHENOXYLATE-ATROPINE 42107261611 No Longer Active Piotr Daley DO Active WARFARIN SODIUM 4 MG TABS 1 tab every evening WARFARIN SODIUM 80016285721 No Longer Active Piotr Daley DO Active PREDNISONE 20 MG TAB 1 tablet twice daily for 2 days, then 1 tablet once daily for 2 days PREDNISONE 05819322006 No Longer Active Piotr Daley DO Active PROMETHAZINE HCL 25 MG TABS 1 four times a day as needed for nausea/vomiting PROMETHAZINE HCL 06157460001 No Longer Active Piotr Daley DO Active TUSSIONEX PENNKINETIC ER 10-8 MG/5ML LQCR 5ml po q12hr PRN Cough HYDROCOD POLST-CHLORPHEN POLST 18849462012 No Longer Active Piotr Daley DO Active AZITHROMYCIN 250 MG TABS 2 po qd x 1 day, then 1 po qd x 4 days AZITHROMYCIN 71720243421 No Longer Active Piotr Daley DO Active AZITHROMYCIN 250 MG TABS 2 po qd x 1 day, then 1 po qd x 4 days AZITHROMYCIN 73724481571 No Longer Active Piotr Daley DO Active LISINOPRIL-HYDROCHLOROTHIAZIDE 10-12.5 MG TABS 1 tab by mouth daily LISINOPRIL-HYDROCHLOROTHIAZIDE 67780707645 Active Piotr Daley DO Active LISINOPRIL 10 MG TABS 1/2-1 tab po every other day LISINOPRIL 23598649809 No Longer Active Piotr Daley DO Active VENTOLIN HFA 108 (90 BASE) MCG/ACT AERS 2 puffs four times a day PRN cough ALBUTEROL SULFATE 71303951586 No Longer Active Piotr Daley DO Active NYSTATIN-TRIAMCINOLONE 429108-7.1 UNIT/GM-% CREA Apply to area BID NYSTATIN-TRIAMCINOLONE 84830938792 No Longer Active Alena Chavira LEAD LAYING AND GLUING MACHINE OPERATOR Active PHISOHEX 3 % LIQD Use Directed HEXACHLOROPHENE 92570133857 No Longer Active Sandra [place] Active AZITHROMYCIN 250 MG TABS 2 po qd x 1 day, then 1 po qd x 4 days AZITHROMYCIN 65997860408 No Longer Active Katrina Rinaldi MD PhD Active AZITHROMYCIN 250 MG TABS 2 po qd x 1 day, then 1 po qd x 4 days AZITHROMYCIN 45432796983 No Longer Active Piotr Daley DO Active AZITHROMYCIN 500 MG SOLR 1 po q day AZITHROMYCIN 83247813458 No Longer Active Piotr Daley DO Active NYSTATIN-TRIAMCINOLONE 099374-5.1 UNIT/GM-% CREA apply bid 08/19 NYSTATIN-TRIAMCINOLONE 17606422364 No Longer Active Piotr Daley DO Active IBUPROFEN 800 MG TABS 1 po q 8 hours prn pain sparinly IBUPROFEN 79325191519 No Longer Active Piotr Daley DO Active VITAMIN D3 5000 UNIT CAPS 1 po daily CHOLECALCIFEROL 64761587407 Active Piotr Daley DO Active IBUPROFEN 800 MG TABS 1 po q 8 hours prn pain sparinly IBUPROFEN 800 MG TABS 307826 IBUPROFEN Inactive NYSTATIN-TRIAMCINOLONE 520700-8.1 UNIT/GM-% CREA apply bid 08/19 NYSTATIN-TRIAMCINOLONE 522888-5.1 UNIT/GM-% CREA 2188437 NYSTATIN- TRIAMCINOLONE Inactive AZITHROMYCIN 500 MG SOLR 1 po q day AZITHROMYCIN 500 MG SOLR 721475 AZITHROMYCIN Inactive VENTOLIN HFA 108 (90 BASE) MCG/ACT AERS 2 puffs four times a day PRN cough VENTOLIN HFA 108 (90 BASE) MCG/ACT AERS ALBUTEROL SULFATE Inactive LISINOPRIL 10 MG TABS 1/2-1 tab po every other day LISINOPRIL 10 MG TABS 273210 LISINOPRIL Inactive TUSSIONEX PENNKINETIC ER 10-8 MG/5ML LQCR 5ml po q12hr PRN Cough TUSSIONEX PENNKINETIC ER 10-8 MG/5ML LQCR HYDROCOD POLST- CHLORPHEN POLST Inactive PROMETHAZINE HCL 25 MG TABS 1 four times a day as needed for nausea/vomiting PROMETHAZINE HCL 25 MG TABS 211477 PROMETHAZINE HCL Inactive PREDNISONE 20 MG TAB 1 tablet twice daily for 2 days, then 1 tablet once daily for 2 days PREDNISONE 20 MG TAB 819648 PREDNISONE Inactive WARFARIN SODIUM 4 MG TABS 1 tab every evening WARFARIN SODIUM 4 MG TABS 770408 WARFARIN SODIUM Inactive LOMOTIL 2.5-0.025 MG TAB 1 to 2 four times a day as needed for diarrhea 10/13 LOMOTIL 2.5-0.025 MG TAB 9686943 DIPHENOXYLATE-ATROPINE Inactive IBUPROFEN 800 MG TABS 1 tab every 8 hours as needed IBUPROFEN 800 MG TABS 121725 IBUPROFEN Inactive PREDNISONE 20 MG TAB 2 tablets today, then 1 tablet days 2 through 4 PREDNISONE 20 MG TAB 530275 PREDNISONE Inactive AZITHROMYCIN 250 MG TABS 2 po qd x 1 day, then 1 po qd x 4 days AZITHROMYCIN 250 MG TABS 6524647 AZITHROMYCIN Inactive AZITHROMYCIN 250 MG TABS 2 po qd x 1 day, then 1 po qd x 4 days AZITHROMYCIN 250 MG TABS 5780862 AZITHROMYCIN Inactive NYSTATIN-TRIAMCINOLONE 291563-6.1 UNIT/GM-% CREA Apply to area BID NYSTATIN-TRIAMCINOLONE 377934-3.1 UNIT/GM-% CREA 3393746 NYSTATIN-TRIAMCINOLONE Inactive AZITHROMYCIN 250 MG TABS 2 po qd x 1 day, then 1 po qd x 4 days AZITHROMYCIN 250 MG TABS 4733252 AZITHROMYCIN Inactive AZITHROMYCIN 250 MG TABS 2 po qd x 1 day, then 1 po qd x 4 days AZITHROMYCIN 250 MG TABS 6161943 AZITHROMYCIN Inactive AZITHROMYCIN 250 MG TABS 2 po qd x 1 day, then 1 po qd x 4 days AZITHROMYCIN 250 MG TABS 4955177 AZITHROMYCIN Inactive Vital Signs Date Name Value [...] mg/g mg/g{creat} 0-29 sodium, serum 140 mmol/L 248-126 0162/07/17 potassium, serum 4.2 mmol/L 3.5-5.2 chloride, serum [...] ratio (INR) 2.6 1.0-3.5 prothrombin time (patient) 16.0 SECS s [...] ... - Chemistry sodium, serum 142 mmol/L 697-339 6074/12/01 potassium, serum 4.7 mmol/L 3.5-5.2 chloride, serum [...] 142-424 Encounters Code Encounter Date Provider Facility CPT-38421 Level 3 Est. Patient 09:49:40 CDT Piotr Daley [facility] CPT-71675 Level 3 Est. Patient 16:28:11 CDT Piotr Daley [facility] CPT-68744 Level 3 Est. Patient 12:41:58 NATIONAL SALES TRAINER Piotr Daley [facility] CPT-43145 Level 3 Est. Patient 09:21:24 CDT Piotr Daley [facility] CPT-50009 Level 3 Est. Patient 09:21:11 CDT Piotr Daley [facility] CPT-58279 Level 3 Est. Patient 11:16:29 NATIONAL SALES TRAINER Piotr Daley [facility] CPT-12163 Level 3 Est. Patient 18:40:19 NATIONAL SALES TRAINER Piotr Daley [facility] CPT-00870 Level 3 Est. Patient 19:30:50 CDT Piotr Daley [facility] CPT-22556 Level 3 Est. Patient 22:06:44 CDT Katrina Rinaldi MD PhD [facility] CPT-20771 Level 3 Est. Patient 14:20:00 CDT Piotr Daley [facility] CPT-81992 Level 3 Est. Patient 14:15:22 NATIONAL SALES TRAINER Piotr Daley [facility] CPT-90473 Level 3 Est. Patient 20:19:57 NATIONAL SALES TRAINER Piotr Wilson [facility] CPT-22524 Level 3 Est. Patient 16:44:32 CDT Piotr Daley [facility] CPT-62569 Level 3 Est. Patient 08:48:46 NATIONAL SALES TRAINER Piotr Wilson [facility] CPT-39511 Level 3 Est. Patient 21:01:21 CDT Piotr Wilson [facility] Procedures Code Procedure Name Date Entry Date Standard Description CPT-90974 Knee 3V 09:57:38 CDT CPT-OV Office Visit 15:45:01 NATIONAL SALES TRAINER CPT-08754 Abd compl w upright 17:10:25 CDT
--- OUTSIDE RECORDS SUMMARY | 2018-07-18 08:29 | XMS REPORT | Clinical Summary ---
Author Author Admin, Isidra Organization [facility] Address Unknown Phone Unavailable Allergies, Adverse Reactions, [...] Coronary atherosclerosis of unspecified type of vessel, king salmon or graft Back pain, thoracic region, left [...] times a day as needed ALBUTEROL SULFATE 41609188022 Active Matthew Rangel MD Active PREDNISONE 20 MG TAB 2 tabs daily for 3 days, 1 tab daily for 3 days, 1/2 tab daily for 2 days PREDNISONE 31153161279 No Longer Active Matthew Rangel MD Active TRAMADOL HCL 50 MG TABS 1 po tid with ES Tylenol TRAMADOL HCL 57833077432 No Longer Active Matthew Rangel MD Active GABAPENTIN 300 MG CAPS 1 po q hs for nerve pain GABAPENTIN 39080775221 No Longer Active Matthew Rangel MD Active WARFARIN SODIUM 5 MG TABS 1 tablet daily WARFARIN SODIUM 11831834204 Active Anahy Loja Active PREDNISONE 20 MG TAB 2 tablets today, then 1 tablet days 2 through 4 PREDNISONE 58598192493 No Longer Active Piotr Daley DO Active AZITHROMYCIN 250 MG TABS 2 po qd x 1 day, then 1 po qd x 4 days AZITHROMYCIN 18176911997 No Longer Active Piotr Daley DO Active IBUPROFEN 800 MG TABS 1 tab every 8 hours as needed IBUPROFEN 69983479592 No Longer Active Piotr Daley DO Active LOMOTIL 2.5-0.025 MG TAB 1 to 2 four times a day as needed for diarrhea 10/13 DIPHENOXYLATE-ATROPINE 26902336397 No Longer Active Piotr Daley DO Active WARFARIN SODIUM 4 MG TABS 1 tab every evening WARFARIN SODIUM 88282082508 No Longer Active Piotr Daley DO Active PREDNISONE 20 MG TAB 1 tablet twice daily for 2 days, then 1 tablet once daily for 2 days PREDNISONE 92873465193 No Longer Active Piotr Daley DO Active PROMETHAZINE HCL 25 MG TABS 1 four times a day as needed for nausea/vomiting PROMETHAZINE HCL 40224074834 No Longer Active Piotr Daley DO Active TUSSIONEX PENNKINETIC ER 10-8 MG/5ML LQCR 5ml po q12hr PRN Cough HYDROCOD POLST-CHLORPHEN POLST 07584280292 No Longer Active Piotr Daley DO Active AZITHROMYCIN 250 MG TABS 2 po qd x 1 day, then 1 po qd x 4 days AZITHROMYCIN 00098006186 No Longer Active Piotr Daley DO Active AZITHROMYCIN 250 MG TABS 2 po qd x 1 day, then 1 po qd x 4 days AZITHROMYCIN 95767944208 No Longer Active Piotr Daley DO Active LISINOPRIL-HYDROCHLOROTHIAZIDE 10-12.5 MG TABS 1 tab by mouth daily LISINOPRIL-HYDROCHLOROTHIAZIDE 89969357853 Active Catalina Freitas Active LISINOPRIL 10 MG TABS 1/2-1 tab po every other day LISINOPRIL 81912428241 No Longer Active Piotr Daley DO Active VENTOLIN HFA 108 (90 BASE) MCG/ACT AERS 2 puffs four times a day PRN cough ALBUTEROL SULFATE 14291413449 No Longer Active Piotr Daley DO Active NYSTATIN-TRIAMCINOLONE 513883-9.1 UNIT/GM-% CREA Apply to area BID NYSTATIN-TRIAMCINOLONE 81912597403 No Longer Active Alena Chavira AERONAUTICAL ENGINEER Active PHISOHEX 3 % LIQD Use Directed HEXACHLOROPHENE 75106802205 No Longer Active Sandra Dentarger Active AZITHROMYCIN 250 MG TABS 2 po qd x 1 day, then 1 po qd x 4 days AZITHROMYCIN 48032441645 No Longer Active Katrina Rinaldi MD PhD Active AZITHROMYCIN 250 MG TABS 2 po qd x 1 day, then 1 po qd x 4 days AZITHROMYCIN 02954185094 No Longer Active Piotr Daley DO Active AZITHROMYCIN 500 MG SOLR 1 po q day AZITHROMYCIN 35029039395 No Longer Active Piotr Daley DO Active NYSTATIN-TRIAMCINOLONE 555288-2.1 UNIT/GM-% CREA apply bid 08/19 NYSTATIN-TRIAMCINOLONE 80529599977 No Longer Active Piotr Daley DO Active IBUPROFEN 800 MG TABS 1 po q 8 hours prn pain sparinly IBUPROFEN 80164603232 No Longer Active Piotr Daley DO Active VITAMIN D3 5000 UNIT CAPS 1 po daily CHOLECALCIFEROL 60202876689 Active Piotr Daley DO Active IBUPROFEN 800 MG TABS 1 po q 8 hours prn pain sparinly IBUPROFEN 800 MG TABS 451980 IBUPROFEN Inactive NYSTATIN-TRIAMCINOLONE 913446-3.1 UNIT/GM-% CREA apply bid 08/19 NYSTATIN-TRIAMCINOLONE 846402-6.1 UNIT/GM-% CREA 7762323 NYSTATIN- TRIAMCINOLONE Inactive AZITHROMYCIN 500 MG SOLR 1 po q day AZITHROMYCIN 500 MG SOLR 39560441412 AZITHROMYCIN Inactive VENTOLIN HFA 108 (90 BASE) MCG/ACT AERS 2 puffs four times a day PRN cough VENTOLIN HFA 108 (90 BASE) MCG/ACT AERS ALBUTEROL SULFATE Inactive LISINOPRIL 10 MG TABS 1/2-1 tab po every other day LISINOPRIL 10 MG TABS 353859 LISINOPRIL Inactive TUSSIONEX PENNKINETIC ER 10-8 MG/5ML LQCR 5ml po q12hr PRN Cough TUSSIONEX PENNKINETIC ER 10-8 MG/5ML LQCR HYDROCOD POLST- CHLORPHEN POLST Inactive PROMETHAZINE HCL 25 MG TABS 1 four times a day as needed for nausea/vomiting PROMETHAZINE HCL 25 MG TABS 609947 PROMETHAZINE HCL Inactive PREDNISONE 20 MG TAB 1 tablet twice daily for 2 days, then 1 tablet once daily for 2 days PREDNISONE 20 MG TAB 157815 PREDNISONE Inactive WARFARIN SODIUM 4 MG TABS 1 tab every evening WARFARIN SODIUM 4 MG TABS 939262 WARFARIN SODIUM Inactive LOMOTIL 2.5-0.025 MG TAB 1 to 2 four times a day as needed for diarrhea 10/13 LOMOTIL 2.5-0.025 MG TAB 7832138 DIPHENOXYLATE-ATROPINE Inactive IBUPROFEN 800 MG TABS 1 tab every 8 hours as needed IBUPROFEN 800 MG TABS 717960 IBUPROFEN Inactive PREDNISONE 20 MG TAB 2 tablets today, then 1 tablet days 2 through 4 PREDNISONE 20 MG TAB 469372 PREDNISONE Inactive GABAPENTIN 300 MG CAPS 1 po q hs for nerve pain GABAPENTIN 300 MG CAPS 644291 GABAPENTIN Inactive TRAMADOL HCL 50 MG TABS 1 po tid with ES Tylenol TRAMADOL HCL 50 MG TABS 033346 TRAMADOL HCL Inactive AZITHROMYCIN 250 MG TABS 2 po qd x 1 day, then 1 po qd x 4 days AZITHROMYCIN 250 MG TABS 8317804 AZITHROMYCIN Inactive AZITHROMYCIN 250 MG TABS 2 po qd x 1 day, then 1 po qd x 4 days AZITHROMYCIN 250 MG TABS 4742237 AZITHROMYCIN Inactive NYSTATIN-TRIAMCINOLONE 202285-7.1 UNIT/GM-% CREA Apply to area BID NYSTATIN-TRIAMCINOLONE 369255-6.1 UNIT/GM-% CREA 9820840 NYSTATIN-TRIAMCINOLONE Inactive AZITHROMYCIN 250 MG TABS 2 po qd x 1 day, then 1 po qd x 4 days AZITHROMYCIN 250 MG TABS 6971731 AZITHROMYCIN Inactive AZITHROMYCIN 250 MG TABS 2 po qd x 1 day, then 1 po qd x 4 days AZITHROMYCIN 250 MG TABS 8209074 AZITHROMYCIN Inactive AZITHROMYCIN 250 MG TABS 2 po qd x 1 day, then 1 po qd x 4 days AZITHROMYCIN 250 MG TABS 3080106 AZITHROMYCIN Inactive PREDNISONE 20 MG TAB 2 tabs daily for 3 days, 1 tab daily for 3 days, 1/2 tab daily for 2 days PREDNISONE 20 MG TAB 780558 PREDNISONE Inactive Advance Directives Directive Description Start [...] Panel - Chemistry sodium, serum 141 mmol/L 927-563 7671/01/24 potassium, serum 4.3 mmol/L 3.5-5.2 chloride, serum [...] % 11.0-15.0 platelet count 172 THOUSAND/UL 10*3/mm3 991-741 1050/04/12 mean platelet volume 8.6 fL 7.5-12.5 Lab Report: Comp. Metabolic Panel - Chemistry sodium, serum 141 mmol/L 612-275 1957/06/28 carbon dioxide, venous blood 31.0 mmol/L 21.0-32.0 [...] ratio (INR) 4.2 1.0-3.5 prothrombin time (patient) 15.4 SECS s 11.1-13.4 international normalized ratio (INR) 1.7 1.0-3.5 prothrombin time (patient) 23.1 SECS s [...] 1.0-3.5 Encounters Code Encounter Date Provider Facility CPT-60819 Level 3 Est. Patient 10:48:17 [employer] Matthew Rangel MD [facility] CPT-24659 Level 4 Est. Patient 17:15:07 [employer] Piotr Daley [facility] CPT-55037 Level 3 Est. Patient 12:46:13 [employer] Piotr Daley [facility] CPT-13898 Level 3 Est. Patient 15:14:31 [employer] Piotr Daley [facility] CPT-60073 Level 3 Est. Patient 09:20:13 [employer] Piotr Daley [facility] CPT-91059 Level 3 Est. Patient 09:49:40 CDT Piotr Wilson [facility] CPT-13420 Level 3 Est. Patient 16:28:11 CDT Piotr Daley [facility] CPT-72862 Level 3 Est. Patient 12:41:58 [employer] Piotr Daley [facility] CPT-99634 Level 3 Est. Patient 09:21:24 CDT Piotr Daley [facility] CPT-17364 Level 3 Est. Patient 09:21:11 CDT Piotr Daley [facility] CPT-96177 Level 3 Est. Patient 11:16:29 [employer] Piotr Daley [facility] CPT-58792 Level 3 Est. Patient 18:40:19 [employer] Piotr Daley [facility] CPT-95783 Level 3 Est. Patient 19:30:50 CDT Piotr Daley [facility] CPT-41710 Level 3 Est. Patient 22:06:44 CDT Katrina Rinaldi MD [facility] CPT-17691 Level 3 Est. Patient 14:20:00 CDT Piotr Daley [facility] CPT-69559 Level 3 Est. Patient 14:15:22 [employer] Piotr Daley [facility] CPT-86146 Level 3 Est. Patient 20:19:57 [employer] Piotr Daley [facility] CPT-82424 Level 3 Est. Patient 16:44:32 CDT Piotr Daley [facility] CPT-29874 Level 3 Est. Patient 08:48:46 [employer] Piotr Daley [facility] CPT-62114 Level 3 Est. Patient 21:01:21 CDT Piotr Daley [facility] Procedures Code Procedure Name Date Entry Date Standard Description CPT-59735 BMP - LAB USE ONLY 17:19:11 [employer] CPT-89254 PT/INR - LAB USE ONLY 17:19:10 [employer] CPT-97823 Venipuncture Draw Fee 17:19:10 [employer] CPT-22146 PT/INR - LAB USE ONLY 08:12:25 [employer] CPT-57089 Venipuncture Draw Fee 08:12:24 [employer] CPT-34910 Venipuncture Draw Fee 11:31:07 [employer] CPT-42493 TPSA - LAB USE ONLY 11:31:07 [employer] CPT-35220 PT/INR - LAB USE ONLY 11:31:07 [employer] CPT-G0439 Subsequent Annual Wellness Exam 09:59:29 [employer] CPT-79996 Creatinine - LAB USE ONLY 14:37:55 [employer] CPT-62670 PT/INR - LAB USE ONLY 14:37:55 [employer] CPT-66664 Venipuncture Draw Fee 14:37:55 [employer] CPT-51016 LS spine comp w obliques - XRAY USE ONLY 12:59:25 [employer] CPT-46504 PT/INR - LAB USE ONLY 13:49:20 CDT CPT-68950 Venipuncture Draw Fee 13:49:19 CDT CPT-88513 PT/INR - LAB USE ONLY 15:48:49 CDT CPT-75592 Venipuncture Draw Fee 15:48:49 CDT CPT-14036 Venipuncture Draw Fee 11:31:59 CDT CPT-92670 PT/INR - LAB USE ONLY 11:31:59 CDT CPT-84632 Venipuncture Draw Fee 13:29:15 CDT CPT-31145 Thoracolumbar AP/Lat 15:19:19 [employer] CPT-G0438 Initial Annual Wellness Exam 12:18:54 [employer] CPT-12700 Knee 3V 09:57:38 CDT CPT-OV Office Visit 15:45:01 [employer] CPT-16275 Abd compl w upright 17:10:25 CDT
--- OUTSIDE RECORDS SUMMARY | 2018-07-18 08:30 | XMS REPORT | Clinical Summary ---
Author Author Admin, Isidra Organization [employer] Address Unknown Phone Unavailable Allergies, Adverse Reactions, [...] neoplasm of prostate V10.46 Active Alina Meyers SAMPLE TAKER OPERATOR Personal history of malignant neoplasm of prostate Coronary artery disease 414.00 Active Alina Luigi SAMPLE TAKER OPERATOR Coronary atherosclerosis of unspecified type of vessel, [place] or graft Back pain, thoracic region, left 724.1 Inactive Piotr Katie Edi DO Pain in thoracic spine Thoracic back pain 724.5 Active Piotr W Edi DO Backache, unspecified Back pain lumbar 724.2 Active Piotr Daley DO Lumbago Peripheral neuropathy, lower extremity, left 356.9 Active 02/19 Piotr W Edi DO Unspecified hereditary and idiopathic peripheral neuropathy Insect bite 919.4 Active Nella Harris SAMPLE TAKER OPERATOR Insect bite, nonvenomous, of other, multiple, and unspecified sites, without mention of infection Pruritus 698.9 Active Nella Harris SAMPLE TAKER OPERATOR Unspecified pruritic disorder Wellness exam V70.0 Active [...] times a day as needed ALBUTEROL SULFATE 87541253769 No Longer Active Emelyn Norris Active DOXYCYCLINE HYCLATE 100 MG ORAL CAPSULE 1 cap by mouth BID x10 days DOXYCYCLINE HYCLATE 00014672112 No Longer Active Nella Harris APRN Active WARFARIN SODIUM 5 MG ORAL TABLET 1 tablet daily M-S, 1/2 tab on Heart WARFARIN SODIUM 95778184513 Active Piotr Daley DO Active PREDNISONE 20 MG ORAL TABLET 2 tabs daily for 3 days, 1 tab daily for 3 days, 1/2 tab daily for 2 days PREDNISONE 90478916623 No Longer Active Matthew Rangel MD Active TRAMADOL HCL 50 MG ORAL TABLET 1 po tid with ES Tylenol TRAMADOL HCL 36872718405 No Longer Active Matthew Rangel MD Active GABAPENTIN 300 MG ORAL CAPSULE 1 po q hs for nerve pain GABAPENTIN 12752218432 No Longer Active Matthew Rangel MD Active PREDNISONE 20 MG ORAL TABLET 2 tablets today, then 1 tablet days 2 through 4 PREDNISONE 71109549958 No Longer Active Piotr Daley DO Active AZITHROMYCIN 250 MG ORAL TABLET 2 po qd x 1 day, then 1 po qd x 4 days 07/12 AZITHROMYCIN 44150428963 No Longer Active Piotr Daley DO Active IBUPROFEN 800 MG ORAL TABLET 1 tab every 8 hours as needed 07/12 IBUPROFEN 49739919312 No Longer Active Piotr Daley DO Active LOMOTIL 2.5-0.025 MG ORAL TABLET 1 to 2 four times a day as needed for diarrhea DIPHENOXYLATE-ATROPINE 20830255604 No Longer Active Piotr Daley DO Active WARFARIN SODIUM 4 MG ORAL TABLET 1 tab every evening WARFARIN SODIUM 20302165775 No Longer Active Piotr Daley DO Active PREDNISONE 20 MG ORAL TABLET 1 tablet twice daily for 2 days, then 1 tablet once daily for 2 days PREDNISONE 30109969093 No Longer Active Piotr Daley DO Active PROMETHAZINE HCL 25 MG ORAL TABLET 1 four times a day as needed for nausea/ vomiting PROMETHAZINE HCL 44256434168 No Longer Active Piotr Daley DO Active TUSSIONEX PENNKINETIC ER 10-8 MG/5ML ORAL SUSPENSION EXTENDED RELEASE 5ml po q12hr PRN Cough HYDROCOD POLST-CHLORPHEN POLST 09480619174 No Longer Active Piotr Daley DO Active AZITHROMYCIN 250 MG ORAL TABLET 2 po qd x 1 day, then 1 po qd x 4 days 10/13 AZITHROMYCIN 29162129906 No Longer Active Piotr Daley DO Active AZITHROMYCIN 250 MG ORAL TABLET 2 po qd x 1 day, then 1 po qd x 4 days 05/07 AZITHROMYCIN 95505917186 No Longer Active Piotr Daley DO Active LISINOPRIL-HYDROCHLOROTHIAZIDE 10-12.5 MG ORAL TABLET 1 tab by mouth daily LISINOPRIL-HYDROCHLOROTHIAZIDE 69950865461 Active Piotr Daley DO Active LISINOPRIL 10 MG ORAL TABLET 1/2-1 tab po every other day LISINOPRIL 38809827677 No Longer Active Piotr Daley DO Active VENTOLIN HFA 108 (90 Base) MCG/ACT INHALATION AEROSOL SOLUTION 2 puffs four times a day PRN cough ALBUTEROL SULFATE 73348372855 No Longer Active Piotr Daley DO Active NYSTATIN-TRIAMCINOLONE 802988-9.1 UNIT/GM-% EXTERNAL CREAM Apply to area BID NYSTATIN-TRIAMCINOLONE 33331516588 No Longer Active Alena Chavira DENT REMOVER Active PHISOHEX 3 % LIQD Use Directed HEXACHLOROPHENE 91465517594 No Longer Active Sandra [place] Active AZITHROMYCIN 250 MG ORAL TABLET 2 po qd x 1 day, then 1 po qd x 4 days 10/21 AZITHROMYCIN 92845060038 No Longer Active Katrina Rinaldi MD PhD Active AZITHROMYCIN 250 MG ORAL TABLET 2 po qd x 1 day, then 1 po qd x 4 days 10/16 AZITHROMYCIN 53372739443 No Longer Active Piotr Daley DO Active AZITHROMYCIN 500 MG INTRAVENOUS SOLUTION RECONSTITUTED 1 po q day AZITHROMYCIN 04873679880 No Longer Active Piotr Daley DO Active NYSTATIN-TRIAMCINOLONE 839154-4.1 UNIT/GM-% EXTERNAL CREAM apply bid NYSTATIN-TRIAMCINOLONE 07895904848 No Longer Active Piotr Daley DO Active IBUPROFEN 800 MG ORAL TABLET 1 po q 8 hours prn pain sparinly IBUPROFEN 50461028738 No Longer Active Piotr Daley DO Active VITAMIN D3 5000 UNIT ORAL CAPSULE 1 po daily CHOLECALCIFEROL 54991727872 Active Piotr Daley DO Active DOXYCYCLINE HYCLATE 100 MG ORAL CAPSULE 1 cap by mouth BID x10 days DOXYCYCLINE HYCLATE 100 MG ORAL CAPSULE 5602728 DOXYCYCLINE HYCLATE Inactive IBUPROFEN 800 MG ORAL TABLET 1 po q 8 hours prn pain sparinly IBUPROFEN 800 MG ORAL TABLET 325657 IBUPROFEN Inactive IBUPROFEN 800 MG ORAL TABLET 1 tab every 8 hours as needed 07/12 IBUPROFEN 800 MG ORAL TABLET 044707 IBUPROFEN Inactive LOMOTIL 2.5-0.025 MG ORAL TABLET 1 to 2 four times a day as needed for diarrhea LOMOTIL 2.5-0.025 MG ORAL TABLET 1221357 DIPHENOXYLATE-ATROPINE Inactive NYSTATIN-TRIAMCINOLONE 276713-2.1 UNIT/GM-% EXTERNAL CREAM apply bid NYSTATIN-TRIAMCINOLONE 461499-9.1 UNIT/GM-% EXTERNAL CREAM 9682398 NYSTATIN-TRIAMCINOLONE Inactive NYSTATIN-TRIAMCINOLONE 051603-5.1 UNIT/GM-% EXTERNAL CREAM Apply to area BID NYSTATIN-TRIAMCINOLONE 658841-3.1 UNIT/GM-% EXTERNAL CREAM 7382624 NYSTATIN-TRIAMCINOLONE Inactive PREDNISONE 20 MG ORAL TABLET 1 tablet twice daily for 2 days, then 1 tablet once daily for 2 days PREDNISONE 20 MG ORAL TABLET 420770 PREDNISONE Inactive PREDNISONE 20 MG ORAL TABLET 2 tablets today, then 1 tablet days 2 through 4 PREDNISONE 20 MG ORAL TABLET 045443 PREDNISONE Inactive PREDNISONE 20 MG ORAL TABLET 2 tabs daily for 3 days, 1 tab daily for 3 days, 1/2 tab daily for 2 days PREDNISONE 20 MG ORAL TABLET 265189 PREDNISONE Inactive PROMETHAZINE HCL 25 MG ORAL TABLET 1 four times a day as needed for nausea/ vomiting PROMETHAZINE HCL 25 MG ORAL TABLET 014912 PROMETHAZINE HCL Inactive LISINOPRIL 10 MG ORAL TABLET 1/2-1 tab po every other day LISINOPRIL 10 MG ORAL TABLET 494127 LISINOPRIL Inactive TRAMADOL HCL 50 MG ORAL TABLET 1 po tid with ES Tylenol TRAMADOL HCL 50 MG ORAL TABLET 040556 TRAMADOL HCL Inactive GABAPENTIN 300 MG ORAL CAPSULE 1 po q hs for nerve pain GABAPENTIN 300 MG ORAL CAPSULE 444135 GABAPENTIN Inactive AZITHROMYCIN 250 MG ORAL TABLET 2 po qd x 1 day, then 1 po qd x 4 days 10/16 AZITHROMYCIN 250 MG ORAL TABLET 979053 AZITHROMYCIN Inactive AZITHROMYCIN 250 MG ORAL TABLET 2 po qd x 1 day, then 1 po qd x 4 days 10/21 AZITHROMYCIN 250 MG ORAL TABLET 587791 AZITHROMYCIN Inactive AZITHROMYCIN 250 MG ORAL TABLET 2 po qd x 1 day, then 1 po qd x 4 days 05/07 AZITHROMYCIN 250 MG ORAL TABLET 262872 AZITHROMYCIN Inactive AZITHROMYCIN 250 MG ORAL TABLET 2 po qd x 1 day, then 1 po qd x 4 days 10/13 AZITHROMYCIN 250 MG ORAL TABLET 615381 AZITHROMYCIN Inactive AZITHROMYCIN 250 MG ORAL TABLET 2 po qd x 1 day, then 1 po qd x 4 days 07/12 AZITHROMYCIN 250 MG ORAL TABLET 870806 AZITHROMYCIN Inactive AZITHROMYCIN 500 MG INTRAVENOUS SOLUTION RECONSTITUTED 1 po q day AZITHROMYCIN 500 MG INTRAVENOUS SOLUTION RECONSTITUTED 72395055210 AZITHROMYCIN Inactive WARFARIN SODIUM 4 MG ORAL TABLET 1 tab every evening WARFARIN SODIUM 4 MG ORAL TABLET 766583 WARFARIN SODIUM Inactive VENTOLIN HFA 108 (90 [...] Panel - Chemistry sodium, serum 141 mmol/L 207-738 3093/01/24 potassium, serum 4.3 mmol/L 3.5-5.2 chloride, serum [...] % 11.0-15.0 platelet count 172 THOUSAND/UL 10*3/mm3 851-407 2328/04/12 mean platelet volume 8.6 fL 7.5-12.5 Lab [...] 18.9-24.9 Encounters Code Encounter Date Provider Facility CPT-08630 Level 3 Est. Patient 10:34:54 ALCOHOLISM WORKER Piotr Wilson Edi [facility] CPT-43526 Level 3 Est. Patient 17:10:19 CDT Nella Harris APRN [facility] CPT-90164 Level 3 Est. Patient 10:48:17 ALCOHOLISM WORKER Matthew Rangel MD [facility] CPT-22679 Level 4 Est. Patient 17:15:07 ALCOHOLISM WORKER Piotr Wilson Edi [facility] CPT-37835 Level 3 Est. Patient 12:46:13 ALCOHOLISM WORKER Piotr Wilson Edi [facility] CPT-92297 Level 3 Est. Patient 15:14:31 ALCOHOLISM WORKER Piotr Wilson Edi [facility] CPT-00044 Level 3 Est. Patient 09:20:13 ALCOHOLISM WORKER Piotr Wilson Edi [facility] CPT-37922 Level 3 Est. Patient 09:49:40 CDT Piotr Daley [facility] CPT-57872 Level 3 Est. Patient 16:28:11 CDT Piotr Daley [facility] CPT-07726 Level 3 Est. Patient 12:41:58 ALCOHOLISM WORKER Piotr Daley [facility] CPT-07156 Level 3 Est. Patient 09:21:24 CDT Piotr Wilson Edi [facility] CPT-63086 Level 3 Est. Patient 09:21:11 CDT Piotr Katie Daley [facility] CPT-08901 Level 3 Est. Patient 11:16:29 ALCOHOLISM WORKER Piotr Daley [facility] CPT-34824 Level 3 Est. Patient 18:40:19 ALCOHOLISM WORKER Piotr Daley [facility] CPT-74751 Level 3 Est. Patient 19:30:50 CDT Piotr Daley [facility] CPT-00875 Level 3 Est. Patient 22:06:44 CDT Katrina Rinaldi MD PhD [facility] CPT-84865 Level 3 Est. Patient 14:20:00 CDT Piotr Daley [facility] CPT-78232 Level 3 Est. Patient 14:15:22 ALCOHOLISM WORKER Piotr Daley [facility] CPT-24682 Level 3 Est. Patient 20:19:57 ALCOHOLISM WORKER Piotr Daley [facility] CPT-82286 Level 3 Est. Patient 16:44:32 CDT Piotr Daley [facility] CPT-80701 Level 3 Est. Patient 08:48:46 ALCOHOLISM WORKER Piort Daley [facility] CPT-83048 Level 3 Est. Patient 21:01:21 CDT Piotr Daley [facility] Procedures Code Procedure Name Date Entry Date Standard Description CPT-G0439 Subsequent Annual Wellness Exam 10:34:52 [facility] [place] CPT-89624 BMP - LAB USE ONLY 17:19:11 ALCOHOLISM WORKER CPT-75600 PT/INR - LAB USE ONLY 17:19:10 [facility] [place] CPT-18553 Venipuncture Draw Fee 17:19:10 ALCOHOLISM WORKER CPT-76696 PT/INR - LAB USE ONLY 08:12:25 [facility] [place] CPT-45347 Venipuncture Draw Fee 08:12:24 ALCOHOLISM WORKER CPT-86528 Venipuncture Draw Fee 11:31:07 ALCOHOLISM WORKER CPT-71206 TPSA - LAB USE ONLY 11:31:07 ALCOHOLISM WORKER CPT-43266 PT/INR - LAB USE ONLY 11:31:07 [facility] [place] CPT-G0439 Subsequent Annual Wellness Exam 09:59:29 ALCOHOLISM WORKER CPT-47237 Creatinine - LAB USE ONLY 14:37:55 ALCOHOLISM WORKER CPT-61328 PT/INR - LAB USE ONLY 14:37:55 ALCOHOLISM WORKER CPT-06617 Venipuncture Draw Fee 14:37:55 ALCOHOLISM WORKER CPT-36552 LS spine comp w obliques - XRAY USE ONLY 12:59:25 ALCOHOLISM WORKER CPT-25726 PT/INR - LAB USE ONLY 13:49:20 CDT CPT-75484 Venipuncture Draw Fee 13:49:19 CDT CPT-36266 PT/INR - LAB USE ONLY 15:48:49 CDT CPT-81191 Venipuncture Draw Fee 15:48:49 CDT CPT-66746 Venipuncture Draw Fee 11:31:59 CDT CPT-92971 PT/INR - LAB USE ONLY 11:31:59 CDT CPT-02374 Venipuncture Draw Fee 13:29:15 CDT CPT-89109 Thoracolumbar AP/Lat 15:19:19 ALCOHOLISM WORKER CPT-G0438 Initial Annual Wellness Exam 12:18:54 ALCOHOLISM WORKER CPT-75458 Knee 3V 09:57:38 CDT CPT-OV Office Visit 15:45:01 ALCOHOLISM WORKER CPT-29945 Abd compl w upright 17:10:25 CDT
[2018-07-18] MEDS ORDERED: D5 1/2 NS W/KCL 20 MEQ/L 1,000 ML IV SCH (08:31)
--- NOTE | 2018-07-18 08:31 | Progress Note-Post Operative ---
Post-Operative Progess Note Surgeon (s)/[employer] Architect (s) Surgeon SELENA OG MD [employer] n/a Pre-Operative Diagnosis Chronic Right Sinusitis Post-Operative Diagnosis same Post-Op Procedure Note Date of Procedure: Jul 18, 2018 Name of Procedure Performed: Right ESS Description & Findings Description and Findings: n/a Anesthesia Type get Estimated Blood Loss minimal Packing none. Specimen(s) collected/removed cultures taken-aerobic, anaerobic, fungal to lab SELENA OG MD Jul 18, 2018 08:30
--- OUTSIDE RECORDS SUMMARY | 2018-07-18 08:31 | XMS REPORT | Clinical Summary ---
Author Author Admin, [employer] Organization [employer] Address Unknown Phone Unavailable Allergies, Adverse Reactions, [...] times a day as needed ALBUTEROL SULFATE [id number] Active Matthew Rangel MD Active PREDNISONE 20 MG TAB 2 tabs daily for 3 days, 1 tab daily for 3 days, 1/2 tab daily for 2 days PREDNISONE 22533431632 No Longer Active Matthew Rangel MD Active TRAMADOL HCL 50 MG TABS 1 po tid with ES Tylenol TRAMADOL HCL 73232065641 No Longer Active Matthew Rangel MD Active GABAPENTIN 300 MG CAPS 1 po q hs for nerve pain GABAPENTIN 62088078932 No Longer Active Matthew Rangel MD Active WARFARIN SODIUM 5 MG TABS 1 tablet daily WARFARIN SODIUM 41325437146 Active Anahy Loja Active PREDNISONE 20 MG TAB 2 tablets today, then 1 tablet days 2 through 4 PREDNISONE 91858762623 No Longer Active Piotr Daley DO Active AZITHROMYCIN 250 MG TABS 2 po qd x 1 day, then 1 po qd x 4 days AZITHROMYCIN 62024882298 No Longer Active Piotr Daley DO Active IBUPROFEN 800 MG TABS 1 tab every 8 hours as needed IBUPROFEN 13155610588 No Longer Active Piotr Daley DO Active LOMOTIL 2.5-0.025 MG TAB 1 to 2 four times a day as needed for diarrhea 10/13 DIPHENOXYLATE-ATROPINE 99905603165 No Longer Active Piotr Daley DO Active WARFARIN SODIUM 4 MG TABS 1 tab every evening WARFARIN SODIUM 36134961666 No Longer Active Piotr Daley DO Active PREDNISONE 20 MG TAB 1 tablet twice daily for 2 days, then 1 tablet once daily for 2 days PREDNISONE 91659669857 No Longer Active Piotr Daley DO Active PROMETHAZINE HCL 25 MG TABS 1 four times a day as needed for nausea/vomiting PROMETHAZINE HCL 22456955823 No Longer Active Piotr Daley DO Active TUSSIONEX PENNKINETIC ER 10-8 MG/5ML LQCR 5ml po q12hr PRN Cough HYDROCOD POLST-CHLORPHEN POLST 65305587593 No Longer Active Piotr Daley DO Active AZITHROMYCIN 250 MG TABS 2 po qd x 1 day, then 1 po qd x 4 days AZITHROMYCIN 73054937693 No Longer Active Piotr Daley DO Active AZITHROMYCIN 250 MG TABS 2 po qd x 1 day, then 1 po qd x 4 days AZITHROMYCIN 43526986793 No Longer Active Piotr Daley DO Active LISINOPRIL-HYDROCHLOROTHIAZIDE 10-12.5 MG TABS 1 tab by mouth daily LISINOPRIL-HYDROCHLOROTHIAZIDE 95902378552 Active Catalina Freitas Active LISINOPRIL 10 MG TABS 1/2-1 tab po every other day LISINOPRIL 96977147982 No Longer Active Piotr Daley DO Active VENTOLIN HFA 108 (90 BASE) MCG/ACT AERS 2 puffs four times a day PRN cough ALBUTEROL SULFATE 99102933260 No Longer Active Piotr Daley DO Active NYSTATIN-TRIAMCINOLONE 997669-1.1 UNIT/GM-% CREA Apply to area BID NYSTATIN-TRIAMCINOLONE 42428738422 No Longer Active Alena 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 [employer]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 PHISOHEX 3 % LIQD Use Directed HEXACHLOROPHENE 64770564936 No Longer Active Sandra Dentarger Active AZITHROMYCIN 250 MG TABS 2 po qd x 1 day, then 1 po qd x 4 days AZITHROMYCIN 76992082855 No Longer Active Katrina Rinaldi MD PhD Active AZITHROMYCIN 250 MG TABS 2 po qd x 1 day, then 1 po qd x 4 days AZITHROMYCIN 39253020347 No Longer Active Piotr Daley DO Active AZITHROMYCIN 500 MG SOLR 1 po q day AZITHROMYCIN 36400216138 No Longer Active Piotr Daley DO Active NYSTATIN-TRIAMCINOLONE 576789-1.1 UNIT/GM-% CREA apply bid 08/19 NYSTATIN-TRIAMCINOLONE 56701268579 No Longer Active Piotr Daley DO Active IBUPROFEN 800 MG TABS 1 po q 8 hours prn pain sparinly IBUPROFEN 76311181316 No Longer Active Piotr Daley DO Active VITAMIN D3 5000 UNIT CAPS 1 po daily CHOLECALCIFEROL 97043217211 Active Piotr Daley DO Active IBUPROFEN 800 MG TABS 1 po q 8 hours prn pain sparinly IBUPROFEN 800 MG TABS 726182 IBUPROFEN Inactive NYSTATIN-TRIAMCINOLONE 874324-4.1 UNIT/GM-% CREA apply bid 08/19 NYSTATIN-TRIAMCINOLONE 853760-9.1 UNIT/GM-% CREA 7649409 NYSTATIN- TRIAMCINOLONE Inactive AZITHROMYCIN 500 MG SOLR 1 po q day AZITHROMYCIN 500 MG SOLR 34959678223 AZITHROMYCIN Inactive VENTOLIN HFA 108 (90 BASE) MCG/ACT AERS 2 puffs four times a day PRN cough VENTOLIN HFA 108 (90 BASE) MCG/ACT AERS ALBUTEROL SULFATE Inactive LISINOPRIL 10 MG TABS 1/2-1 tab po every other day LISINOPRIL 10 MG TABS 025926 LISINOPRIL Inactive TUSSIONEX PENNKINETIC ER 10-8 MG/5ML LQCR 5ml po q12hr PRN Cough TUSSIONEX PENNKINETIC ER 10-8 MG/5ML LQCR HYDROCOD POLST- CHLORPHEN POLST Inactive PROMETHAZINE HCL 25 MG TABS 1 four times a day as needed for nausea/vomiting PROMETHAZINE HCL 25 MG TABS 579471 PROMETHAZINE HCL Inactive PREDNISONE 20 MG TAB 1 tablet twice daily for 2 days, then 1 tablet once daily for 2 days PREDNISONE 20 MG TAB 602418 PREDNISONE Inactive WARFARIN SODIUM 4 MG TABS 1 tab every evening WARFARIN SODIUM 4 MG TABS 066336 WARFARIN SODIUM Inactive LOMOTIL 2.5-0.025 MG TAB 1 to 2 four times a day as needed for diarrhea 10/13 LOMOTIL 2.5-0.025 MG TAB 1730626 DIPHENOXYLATE-ATROPINE Inactive IBUPROFEN 800 MG TABS 1 tab every 8 hours as needed IBUPROFEN 800 MG TABS 161470 IBUPROFEN Inactive PREDNISONE 20 MG TAB 2 tablets today, then 1 tablet days 2 through 4 PREDNISONE 20 MG TAB 355977 PREDNISONE Inactive GABAPENTIN 300 MG CAPS 1 po q hs for nerve pain GABAPENTIN 300 MG CAPS 579462 GABAPENTIN Inactive TRAMADOL HCL 50 MG TABS 1 po tid with ES Tylenol TRAMADOL HCL 50 MG TABS 516461 TRAMADOL HCL Inactive AZITHROMYCIN 250 MG TABS 2 po qd x 1 day, then 1 po qd x 4 days AZITHROMYCIN 250 MG TABS 6341458 AZITHROMYCIN Inactive AZITHROMYCIN 250 MG TABS 2 po qd x 1 day, then 1 po qd x 4 days AZITHROMYCIN 250 MG TABS 8088769 AZITHROMYCIN Inactive NYSTATIN-TRIAMCINOLONE 371215-8.1 UNIT/GM-% CREA Apply to area BID NYSTATIN-TRIAMCINOLONE 569001-5.1 UNIT/GM-% CREA 2011351 NYSTATIN-TRIAMCINOLONE Inactive AZITHROMYCIN 250 MG TABS 2 po qd x 1 day, then 1 po qd x 4 days AZITHROMYCIN 250 MG TABS 8556010 AZITHROMYCIN Inactive AZITHROMYCIN 250 MG TABS 2 po qd x 1 day, then 1 po qd x 4 days AZITHROMYCIN 250 MG TABS 7717359 AZITHROMYCIN Inactive AZITHROMYCIN 250 MG TABS 2 po qd x 1 day, then 1 po qd x 4 days AZITHROMYCIN 250 MG TABS 1379308 AZITHROMYCIN Inactive PREDNISONE 20 MG TAB 2 tabs daily for 3 days, 1 tab daily for 3 days, 1/2 tab daily for 2 days PREDNISONE 20 MG TAB 320994 PREDNISONE Inactive Advance Directives Directive Description Start [...] Panel - Chemistry sodium, serum 141 mmol/L 967-807 1168/01/24 potassium, serum 4.3 mmol/L 3.5-5.2 chloride, serum [...] % 11.0-15.0 platelet count 172 THOUSAND/UL 10*3/mm3 996-971 0746/04/12 mean platelet volume 8.6 fL 7.5-12.5 Lab Report: Comp. Metabolic Panel - Chemistry carbon dioxide, venous blood 31.0 mmol/L 21.0-32.0 potassium, serum 4.2 mmol/L 3.5-5.2 chloride, serum 104 mmol/L 98-107 blood glucose 94 mg/dL 65-110 urea nitrogen, blood 15 mg/dL 7-18 creatinine, serum 1.08 mg/dL 0.55-1.30 alanine aminotransferase (SGPT), serum 25 U/L 12-78 aspartate aminotransferase (SGOT), serum 26 U/L 15-37 calcium, serum 8.7 mg/dL 8.5-10.1 bilirubin, serum, total 0.50 mg/dL 0.00-1.00 sodium, serum 141 mmol/L 136-145 Lab Report: Creatinine - Chemistry creatinine, serum 1.07 mg/dL 0.55-1.30 Lab Report: MICROALB/CREAT W/RATIO, Prothrombin Time - Chemistry albumin/creatinine ratio, urine < 30 mg/g mg/g{creat} 0-29 Lab Report: MICROALB/CREAT W/RATIO, Prothrombin Time - Coagulation international normalized ratio (INR) 2.1 1.0-3.5 prothrombin time (patient) 18.4 SECS s 11.1-13.4 Lab Report: MICROALB/CREAT W/RATIO, Prothrombin Time - [...] ratio (INR) 3.0 1.0-3.5 prothrombin time (patient) 15.4 SECS s [...] 1.0-3.5 Encounters Code Encounter Date Provider Facility CPT-77100 Level 3 Est. Patient 10:48:17 [employer]OUND INSTRUCTOR [employer] Matthew Rangel MD [facility] CPT-75621 Level 4 Est. Patient 17:15:07 [employer]OUND INSTRUCTOR [employer]VANCED Piotr Daley [facility] CPT-89228 Level 3 Est. Patient 12:46:13 GROUND INSTRUCTOR [employer]VANCED Piotr Daley [facility] CPT-05214 Level 3 Est. Patient 15:14:31 GROUND INSTRUCTOR ADVANCED Piotr Daley [facility] CPT-29048 Level 3 Est. Patient 09:20:13 GROUND INSTRUCTOR [employer]VANCED Piotr Daley [facility] CPT-31857 Level 3 Est. Patient 09:49:40 CDT Piotr Wilson [facility] CPT-13089 Level 3 Est. Patient 16:28:11 CDT Piotr Daley [facility] CPT-70360 Level 3 Est. Patient 12:41:58 [employer]OUND INSTRUCTOR [employer]VANCED Piotr Daley [facility] CPT-71479 Level 3 Est. Patient 09:21:24 CDT Piotr Daley [facility] CPT-79173 Level 3 Est. Patient 09:21:11 CDT Piotr Daley [facility] CPT-47709 Level 3 Est. Patient 11:16:29 [employer]OUND INSTRUCTOR [employer] Piotr Daley [facility] CPT-71236 Level 3 Est. Patient 18:40:19 [employer]OUND INSTRUCTOR [employer]ED Piotr Daley [facility] CPT-27712 Level 3 Est. Patient 19:30:50 CDT Piotr Daley [facility] CPT-84309 Level 3 Est. Patient 22:06:44 CDT Katrina Rinaldi MD [facility] CPT-23252 Level 3 Est. Patient 14:20:00 CDT Piotr Daley [facility] CPT-89464 Level 3 Est. Patient 14:15:22 [employer]OUND INSTRUCTOR [employer]VANCED Piotr Daley [facility] CPT-67698 Level 3 Est. Patient 20:19:57 GROUND INSTRUCTOR [employer]VANCED Piotr Daley [facility] CPT-41853 Level 3 Est. Patient 16:44:32 CDT Piotr Daley [facility] CPT-00097 Level 3 Est. Patient 08:48:46 [employer]OUND INSTRUCTOR [employer]ED Piotr Daley [facility] CPT-24573 Level 3 Est. Patient 21:01:21 CDT Piotr Daley [facility] Procedures Code Procedure Name Date Entry Date Standard Description CPT-71595 BMP - LAB USE ONLY 17:19:11 [employer] INSTRU[employer] CPT-68064 PT/INR - LAB USE ONLY 17:19:10 [employer] CPT-21905 Venipuncture Draw Fee 17:19:10 [employer]OUND IN[employer] CPT-33721 PT/INR - LAB USE ONLY 08:12:25 [employer]OUND IN[employer] CPT-30270 Venipuncture Draw Fee 08:12:24 [employer]OUND IN[employer]CTOR [employer] CPT-69913 Venipuncture Draw Fee 11:31:07 [employer]OUND INSTRUCTOR [employer] CPT-96096 TPSA - LAB USE ONLY 11:31:07 GROUND INSTRUCTOR [employer] CPT-69448 PT/INR - LAB USE ONLY 11:31:07 [employer]OUND INSTRU[employer] CPT-G0439 Subsequent Annual Wellness Exam 09:59:29 [employer]OUND IN[employer] CPT-72606 Creatinine - LAB USE ONLY 14:37:55 [employer] IN[employer] CPT-79661 PT/INR - LAB USE ONLY 14:37:55 [employer]OUND [employer] CPT-37605 Venipuncture Draw Fee 14:37:55 [employer] CPT-82593 LS spine comp w obliques - XRAY USE ONLY 12:59:25 [employer]OUND [employer] CPT-38198 PT/INR - LAB USE ONLY 13:49:20 CDT CPT-07635 Venipuncture Draw Fee 13:49:19 CDT CPT-16023 PT/INR - LAB USE ONLY 15:48:49 CDT CPT-35277 Venipuncture Draw Fee 15:48:49 CDT CPT-47717 Venipuncture Draw Fee 11:31:59 CDT CPT-01553 PT/INR - LAB USE ONLY 11:31:59 CDT CPT-76030 Venipuncture Draw Fee 13:29:15 CDT CPT-02218 Thoracolumbar AP/Lat 15:19:19 [employer] CPT-G0438 Initial Annual Wellness Exam 12:18:54 [employer]OUND [employer] CPT-13484 Knee 3V 09:57:38 CDT CPT-OV Office Visit 15:45:01 [employer] CPT-68579 Abd compl w upright 17:10:25 CDT
--- OUTSIDE RECORDS SUMMARY | 2018-07-18 08:31 | XMS REPORT | Clinical Summary ---
Author Author Admin, Isidra Organization [employer] Address Unknown Phone Unavailable Allergies, Adverse Reactions, [...] of infection Pruritus 698.9 Resolved Piotr Katie Eid DO Unspecified pruritic disorder Wellness exam V70.0 [...] THROMBOPHLEBITIS, LEG, 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 Inactive Sirisha Chen CURRENCY COUNTER DEEP VENOUS THROMBOPHLEBITIS, LEG, 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 Inactive Sirisha Chen CURRENCY COUNTER Seborrheic keratosis ICD-702.19 Inactive Sirisha Chen CURRENCY COUNTER Bronchitis-Acute ICD-466.0 Inactive Piotr Daley DO Leg pain, right ICD-729.5 Inactive Sirisha Chen CURRENCY COUNTER Right leg pain ICD-729.5 Inactive Sirisha Chen CURRENCY COUNTER Bronchitis-Acute ICD-466.0 Inactive Sirisha Chen CURRENCY COUNTER Knee pain, left ICD-719.46 Inactive Sirisha Chen CURRENCY COUNTER Actinic keratoses ICD-702.0 Inactive Sirisha Chen CURRENCY COUNTER Back pain, thoracic region, left ICD-724.1 Inactive Piotr Daley DO Thoracic back pain ICD-724.5 Inactive Sirisha Chen CURRENCY COUNTER Back pain lumbar ICD-724.2 Inactive Sirisha Chen CURRENCY COUNTER Insect bite ICD-919.4 Inactive Sirisha Chen CURRENCY COUNTER Pruritus ICD-698.9 Inactive Sirisha Chen CURRENCY COUNTER 04/09 Medication List Medication Instructions Start Date Stop Date Generic Name NDC Status Provider Patient Instruction TESSALON PERLES 100 MG ORAL CAPSULE 1-2 tablet by mouth 3 times daily 04/16 BENZONATATE [id number] Active Piotr Daley DO Active PREDNISONE 10 MG ORAL TABLET 1 tablet by mouth daily PREDNISONE 63083110074 Active Piotr Daley DO Active PREDNISONE 20 MG ORAL TABLET two tabs by mouth today, then one tab by mouth days two and three PREDNISONE 78699686831 No Longer Active Piotr Daley DO Active CYCLOBENZAPRINE HCL 10 MG ORAL TABLET 1 tablet by mouth three times daily as needed for muscle spasm/pain CYCLOBENZAPRINE HCL 44992264431 Active Piotr Daley DO Active ZITHROMAX 250 MG ORAL TABLET Take two (2 ) tablets day one, then one (1) tablet a day for four (4) more days AZITHROMYCIN 98905745567 No Longer Active Piotr Daley DO Active PROAIR HFA 108 (90 BASE) MCG/ACT INHALATION AEROSOL SOLUTION 1-2 puffs four times a day as needed ALBUTEROL SULFATE 98107326362 No Longer Active Emelyn Norris Active DOXYCYCLINE HYCLATE 100 MG ORAL CAPSULE 1 cap by mouth BID x10 days DOXYCYCLINE HYCLATE 16682997185 No Longer Active Nella Harris APRN Active WARFARIN SODIUM 5 MG ORAL TABLET 1 tablet daily M-S, 1/2 tab on Heart WARFARIN SODIUM 79716165525 Active Piotr Daley DO Active PREDNISONE 20 MG ORAL TABLET 2 tabs daily for 3 days, 1 tab daily for 3 days, 1/2 tab daily for 2 days PREDNISONE 84734498279 No Longer Active Matthew Rangel MD Active TRAMADOL HCL 50 MG ORAL TABLET 1 po tid with ES Tylenol TRAMADOL HCL 25111285834 No Longer Active Matthew Rangel MD Active GABAPENTIN 300 MG ORAL CAPSULE 1 po q hs for nerve pain GABAPENTIN 89446018805 No Longer Active Matthew Rangel MD Active PREDNISONE 20 MG ORAL TABLET 2 tablets today, then 1 tablet days 2 through 4 PREDNISONE 72344417188 No Longer Active Piotr Daley DO Active AZITHROMYCIN 250 MG ORAL TABLET 2 po qd x 1 day, then 1 po qd x 4 days 07/12 AZITHROMYCIN 39530444050 No Longer Active Piotr Daley DO Active IBUPROFEN 800 MG ORAL TABLET 1 tab every 8 hours as needed 07/12 IBUPROFEN 41483315946 No Longer Active Piotr Daley DO Active LOMOTIL 2.5-0.025 MG ORAL TABLET 1 to 2 four times a day as needed for diarrhea DIPHENOXYLATE-ATROPINE 04354528900 No Longer Active Piotr Daley DO Active WARFARIN SODIUM 4 MG ORAL TABLET 1 tab every evening WARFARIN SODIUM 00298564054 No Longer Active Piotr Daley DO Active PREDNISONE 20 MG ORAL TABLET 1 tablet twice daily for 2 days, then 1 tablet once daily for 2 days PREDNISONE 84584264701 No Longer Active Piotr Daley DO Active PROMETHAZINE HCL 25 MG ORAL TABLET 1 four times a day as needed for nausea/ vomiting PROMETHAZINE HCL 76378087617 No Longer Active Piotr Daley DO Active TUSSIONEX PENNKINETIC ER 10-8 MG/5ML ORAL SUSPENSION EXTENDED RELEASE 5ml po q12hr PRN Cough HYDROCOD POLST-CHLORPHEN POLST 63323022981 No Longer Active Piotr Daley DO Active AZITHROMYCIN 250 MG ORAL TABLET 2 po qd x 1 day, then 1 po qd x 4 days 10/13 AZITHROMYCIN 44805168248 No Longer Active Piotr Daley DO Active AZITHROMYCIN 250 MG ORAL TABLET 2 po qd x 1 day, then 1 po qd x 4 days 05/07 AZITHROMYCIN 77621026604 No Longer Active Piotr Daley DO Active LISINOPRIL-HYDROCHLOROTHIAZIDE 10-12.5 MG ORAL TABLET 1 tab by mouth daily LISINOPRIL-HYDROCHLOROTHIAZIDE 65920416624 Active Piotr Daley DO Active LISINOPRIL 10 MG ORAL TABLET 1/2-1 tab po every other day LISINOPRIL 58978580962 No Longer Active Piotr Daley DO Active VENTOLIN HFA 108 (90 Base) MCG/ACT INHALATION AEROSOL SOLUTION 2 puffs four times a day PRN cough ALBUTEROL SULFATE 91349603490 No Longer Active Piotr Daley DO Active NYSTATIN-TRIAMCINOLONE 860244-5.1 UNIT/GM-% EXTERNAL CREAM Apply to area BID NYSTATIN-TRIAMCINOLONE 21886195227 No Longer Active Alena Chavira CURRENCY COUNTER Active PHISOHEX 3 % LIQD Use Directed HEXACHLOROPHENE 79540610196 No Longer Active Sandra Salinas Active AZITHROMYCIN 250 MG ORAL TABLET 2 po qd x 1 day, then 1 po qd x 4 days 10/21 AZITHROMYCIN 39078319043 No Longer Active Katrina Rinaldi MD PhD Active AZITHROMYCIN 250 MG ORAL TABLET 2 po qd x 1 day, then 1 po qd x 4 days 10/16 AZITHROMYCIN 74225806691 No Longer Active Piotr Daley DO Active AZITHROMYCIN 500 MG INTRAVENOUS SOLUTION RECONSTITUTED 1 po q day AZITHROMYCIN 35342688532 No Longer Active Piotr Daley DO Active NYSTATIN-TRIAMCINOLONE 165841-7.1 UNIT/GM-% EXTERNAL CREAM apply bid NYSTATIN-TRIAMCINOLONE 00393259657 No Longer Active Piotr Daley DO Active IBUPROFEN 800 MG ORAL TABLET 1 po q 8 hours prn pain sparinly IBUPROFEN 69726407524 No Longer Active Piotr Daley DO Active VITAMIN D3 5000 UNIT ORAL CAPSULE 1 po daily CHOLECALCIFEROL 64644637163 Active Piotr Daley DO Active IBUPROFEN 800 MG ORAL TABLET 1 po q 8 hours prn pain sparinly IBUPROFEN 800 MG ORAL TABLET 770707 IBUPROFEN Inactive NYSTATIN-TRIAMCINOLONE 291725-9.1 UNIT/GM-% EXTERNAL CREAM apply bid NYSTATIN-TRIAMCINOLONE 954364-5.1 UNIT/GM-% EXTERNAL CREAM 0625728 NYSTATIN-TRIAMCINOLONE Inactive AZITHROMYCIN 500 MG INTRAVENOUS SOLUTION RECONSTITUTED 1 po q day AZITHROMYCIN 500 MG INTRAVENOUS SOLUTION RECONSTITUTED 95211774349 AZITHROMYCIN Inactive VENTOLIN HFA 108 (90 Base) MCG/ACT INHALATION AEROSOL SOLUTION 2 puffs four times a day PRN cough VENTOLIN HFA 108 (90 Base) MCG/ ACT INHALATION AEROSOL SOLUTION ALBUTEROL SULFATE Inactive LISINOPRIL 10 MG ORAL TABLET 1/2-1 tab po every other day LISINOPRIL 10 MG ORAL TABLET 547397 LISINOPRIL Inactive TUSSIONEX PENNKINETIC ER 10-8 MG/5ML ORAL SUSPENSION EXTENDED RELEASE 5ml po q12hr PRN Cough TUSSIONEX PENNKINETIC ER 10-8 MG/5ML ORAL SUSPENSION EXTENDED RELEASE HYDROCOD POLST-CHLORPHEN POLST Inactive PROMETHAZINE HCL 25 MG ORAL TABLET 1 four times a day as needed for nausea/ vomiting PROMETHAZINE HCL 25 MG ORAL TABLET 411338 PROMETHAZINE HCL Inactive PREDNISONE 20 MG ORAL TABLET 1 tablet twice daily for 2 days, then 1 tablet once daily for 2 days PREDNISONE 20 MG ORAL TABLET 082832 PREDNISONE Inactive WARFARIN SODIUM 4 MG ORAL TABLET 1 tab every evening WARFARIN SODIUM 4 MG ORAL TABLET 032068 WARFARIN SODIUM Inactive LOMOTIL 2.5-0.025 MG ORAL TABLET 1 to 2 four times a day as needed for diarrhea LOMOTIL 2.5-0.025 MG ORAL TABLET 3481982 DIPHENOXYLATE-ATROPINE Inactive IBUPROFEN 800 MG ORAL TABLET 1 tab every 8 hours as needed 07/12 IBUPROFEN 800 MG ORAL TABLET 412406 IBUPROFEN Inactive PREDNISONE 20 MG ORAL TABLET 2 tablets today, then 1 tablet days 2 through 4 PREDNISONE 20 MG ORAL TABLET 030335 PREDNISONE Inactive GABAPENTIN 300 MG ORAL CAPSULE 1 po q hs for nerve pain GABAPENTIN 300 MG ORAL CAPSULE 002344 GABAPENTIN Inactive TRAMADOL HCL 50 MG ORAL TABLET 1 po tid with ES Tylenol TRAMADOL HCL 50 MG ORAL TABLET 028186 TRAMADOL HCL Inactive PROAIR HFA 108 (90 BASE) MCG/ACT INHALATION AEROSOL SOLUTION 1-2 puffs four times a day as needed PROAIR HFA 108 (90 BASE) MCG/ACT INHALATION AEROSOL SOLUTION ALBUTEROL SULFATE Inactive PREDNISONE 20 MG ORAL TABLET two tabs by mouth today, then one tab by mouth days two and three PREDNISONE 20 MG ORAL TABLET 951106 PREDNISONE Inactive AZITHROMYCIN 250 MG ORAL TABLET 2 po qd x 1 day, then 1 po qd x 4 days 10/16 AZITHROMYCIN 250 MG ORAL TABLET 192980 AZITHROMYCIN Inactive AZITHROMYCIN 250 MG ORAL TABLET 2 po qd x 1 day, then 1 po qd x 4 days 10/21 AZITHROMYCIN 250 MG ORAL TABLET 251383 AZITHROMYCIN Inactive NYSTATIN-TRIAMCINOLONE 445031-9.1 UNIT/GM-% EXTERNAL CREAM Apply to area BID NYSTATIN-TRIAMCINOLONE 843198-3.1 UNIT/GM-% EXTERNAL CREAM 5803636 NYSTATIN-TRIAMCINOLONE Inactive AZITHROMYCIN 250 MG ORAL TABLET 2 po qd x 1 day, then 1 po qd x 4 days 05/07 AZITHROMYCIN 250 MG ORAL TABLET 422788 AZITHROMYCIN Inactive AZITHROMYCIN 250 MG ORAL TABLET 2 po qd x 1 day, then 1 po qd x 4 days 10/13 AZITHROMYCIN 250 MG ORAL TABLET 561176 AZITHROMYCIN Inactive AZITHROMYCIN 250 MG ORAL TABLET 2 po qd x 1 day, then 1 po qd x 4 days 07/12 AZITHROMYCIN 250 MG ORAL TABLET 289644 AZITHROMYCIN Inactive PREDNISONE 20 MG ORAL TABLET 2 tabs daily for 3 days, 1 tab daily for 3 days, 1/2 tab daily for 2 days PREDNISONE 20 MG ORAL TABLET 017394 PREDNISONE Inactive DOXYCYCLINE HYCLATE 100 MG ORAL CAPSULE 1 cap by mouth BID x10 days DOXYCYCLINE HYCLATE 100 MG ORAL CAPSULE 8480350 DOXYCYCLINE HYCLATE Inactive ZITHROMAX 250 MG ORAL TABLET Take two (2 ) tablets day one, then one (1) tablet a day for four (4) more days ZITHROMAX 250 MG ORAL TABLET 292025 AZITHROMYCIN Inactive Advance Directives Directive Description Start [...] Panel - Chemistry sodium, serum 141 mmol/L 166-672 7861/01/24 potassium, serum 4.3 mmol/L 3.5-5.2 chloride, serum [...] % 11.0-15.0 platelet count 172 THOUSAND/UL 10*3/mm3 195-424 3258/04/12 mean platelet volume 8.6 fL 7.5-12.5 Lab Report: Prothrombin Time - Coagulation prothrombin time (patient) 27.8 SECS s 11.1-13.4 international normalized ratio (INR) 4.2 1.0-3.5 Lab Report: Prothrombin Time Hemochron - Coagulation prothrombin time (patient) 33.0 SECS s 18.9-24.9 Encounters Code Encounter Date Provider Facility CPT-64748 Level 3 Est. Patient 12:33:59 DEMOLITION EXPERT Piotr Daley [facility] CPT-67394 Level 3 Est. Patient 15:56:17 DEMOLITION EXPERT Piotr Daley [facility] CPT-62173 Level 3 Est. Patient 10:34:54 DEMOLITION EXPERT Piotr Daley [facility] CPT-91189 Level 3 Est. Patient 17[facility]10:19 [facility] Level 3 Est. Patient 10:48:17 DEMOLITION EXPERT Matthew Rangel MD [facility] CPT-00245 Level 4 Est. Patient 17:15:07 DEMOLITION EXPERT Piotr Daley [facility] CPT-52572 Level 3 Est. Patient 12:46:13 DEMOLITION EXPERT Piotr Daley [facility] CPT-45163 Level 3 Est. Patient 15:14:31 DEMOLITION EXPERT Piotr Daley [facility] CPT-44367 Level 3 Est. Patient 09:20:13 DEMOLITION EXPERT Piotr Wilson [facility] CPT-93425 Level 3 Est. Patient 09:49:40 CDT Piotr W Edi [facility] CPT-02243 Level 3 Est. Patient 16:28:11 CDT Piotr Daley [facility] CPT-54208 Level 3 Est. Patient 12:41:58 DEMOLITION EXPERT Piotr Daley [facility] CPT-20781 Level 3 Est. Patient 09:21:24 CDT Piotr Daley [facility] CPT-02717 Level 3 Est. Patient 09:21:11 CDT Piotr Daley [facility] CPT-54592 Level 3 Est. Patient 11:16:29 DEMOLITION EXPERT Piotr Daley [facility] CPT-03683 Level 3 Est. Patient 18:40:19 DEMOLITION EXPERT Piotr Daley [facility] CPT-72412 Level 3 Est. Patient 19:30:50 CDT Piotr Daley [facility] CPT-33482 Level 3 Est. Patient 22:06:44 CDT Katrina Rinaldi MD PhD [facility] CPT-86473 Level 3 Est. Patient 14:20:00 CDT Piotr Daley [facility] CPT-13417 Level 3 Est. Patient 14:15:22 DEMOLITION EXPERT Piotr Daley [facility] CPT-94973 Level 3 Est. Patient 20:19:57 DEMOLITION EXPERT Piotr Daley [facility] CPT-35033 Level 3 Est. Patient 16:44:32 CDT Piotr Katie Daley [facility] CPT-79442 Level 3 Est. Patient 08:48:46 DEMOLITION EXPERT Piotr Daley [facility] CPT-52181 Level 3 Est. Patient 21:01:21 CDT Piotr Katie Edi [facility] Procedures Code Procedure Name Date Entry Date Standard Description CPT-45338 Chest, 2 views 12:55:58 DEMOLITION EXPERT CPT-G0439 [facility] Subsequent Annual Wellness Exam 10:34:52 DEMOLITION EXPERT CPT-00870 BMP - LAB USE ONLY 17:19:11 DEMOLITION EXPERT CPT-23376 PT/INR - LAB USE ONLY 17:19:10 DEMOLITION EXPERT CPT-24365 Venipuncture Draw Fee 17:19:10 DEMOLITION EXPERT CPT-29098 PT/INR - LAB USE ONLY 08:12:25 DEMOLITION EXPERT CPT-89373 Venipuncture Draw Fee 08:12:24 DEMOLITION EXPERT CPT-73900 Venipuncture Draw Fee 11:31:07 DEMOLITION EXPERT CPT-89340 TPSA - LAB USE ONLY 11:31:07 [facility] CPT-89187 PT/INR - LAB USE ONLY 11:31:07 [facility] CPT-G0439 Subsequent Annual Wellness Exam 09:59:29 [facility] CPT-55551 Creatinine - LAB USE ONLY 14:37:55 [facility] CPT-98573 PT/INR - LAB USE ONLY 14:37:55 [facility] CPT-12613 Venipuncture Draw Fee 14:37:55 [facility] CPT-04465 LS spine comp w obliques - XRAY USE ONLY 12:59:25 DEMOLITION EXPERT CPT-33117 PT/INR - LAB USE ONLY 13:49:20 CDT CPT-04551 Venipuncture Draw Fee 13:49:19 CDT CPT-37363 PT/INR - LAB USE ONLY 15:48:49 CDT CPT-37615 Venipuncture Draw Fee 15:48:49 CDT CPT-38483 Venipuncture Draw Fee 11:31:59 CDT CPT-53326 PT/INR - LAB USE ONLY 11:31:59 CDT CPT-65033 Venipuncture Draw Fee 13:29:15 CDT CPT-16248 Thoracolumbar AP/Lat 15:19:19 DEMOLITION EXPERT CPT-G0438 Initial Annual Wellness Exam 12:18:54 DEMOLITION EXPERT CPT-56436 Knee 3V 09:57:38 CDT CPT-OV Office Visit 15:45:01 DEMOLITION EXPERT CPT-43043 Abd compl w upright 17:10:25 CDT
--- OUTSIDE RECORDS SUMMARY | 2018-07-18 08:32 | XMS REPORT | Clinical Summary ---
Author Author Admin, YONG Organization [facility] Address Unknown Phone Unavailable Allergies, Adverse [...] 1 tablet days 2 through 4 PREDNISONE 89876378832 Active Piotr Daley DO Active AZITHROMYCIN 250 MG TABS 2 po qd x 1 day, then 1 po qd x 4 days AZITHROMYCIN 08952230053 No Longer Active Piotr Daley DO Active IBUPROFEN 800 MG TABS 1 tab every 8 hours as needed IBUPROFEN 58603797283 No Longer Active Piotr Daley DO Active LOMOTIL 2.5-0.025 MG TAB 1 to 2 four times a day as needed for diarrhea 10/13 DIPHENOXYLATE-ATROPINE 62011462175 No Longer Active Piotr Daley DO Active WARFARIN SODIUM 5 MG TABS 1 tablet daily except for Saturday and 04/09 tablet. WARFARIN SODIUM 60225559993 Active Piotr Daley DO Active WARFARIN SODIUM 4 MG TABS 1 tab every evening WARFARIN SODIUM 04510466254 No Longer Active Piotr Daley DO Active PREDNISONE 20 MG TAB 1 tablet twice daily for 2 days, then 1 tablet once daily for 2 days PREDNISONE 06865453879 No Longer Active Piotr Daley DO Active PROMETHAZINE HCL 25 MG TABS 1 four times a day as needed for nausea/vomiting PROMETHAZINE HCL 47006902652 No Longer Active Piotr Daley DO Active TUSSIONEX PENNKINETIC ER 10-8 MG/5ML LQCR 5ml po q12hr PRN Cough HYDROCOD POLST-CHLORPHEN POLST 91678675978 No Longer Active Piotr Daley DO Active AZITHROMYCIN 250 MG TABS 2 po qd x 1 day, then 1 po qd x 4 days AZITHROMYCIN 78660766156 No Longer Active Piotr Daley DO Active AZITHROMYCIN 250 MG TABS 2 po qd x 1 day, then 1 po qd x 4 days AZITHROMYCIN 58391706935 No Longer Active Piotr Daley DO Active LISINOPRIL-HYDROCHLOROTHIAZIDE 10-12.5 MG TABS 1 tab by mouth daily LISINOPRIL-HYDROCHLOROTHIAZIDE 41129581237 Active Piotr Daley DO Active LISINOPRIL 10 MG TABS 1/2-1 tab po every other day LISINOPRIL 60732094010 No Longer Active Piotr Daley DO Active VENTOLIN HFA 108 (90 BASE) MCG/ACT AERS 2 puffs four times a day PRN cough ALBUTEROL SULFATE 03092247747 No Longer Active Piotr Daley DO Active NYSTATIN-TRIAMCINOLONE 492570-8.1 UNIT/GM-% CREA Apply to area BID NYSTATIN-TRIAMCINOLONE 00157940071 No Longer Active Alena Chavira PAINT SPECIALIST Active PHISOHEX 3 % LIQD Use Directed HEXACHLOROPHENE 75112151003 No Longer Active Sandra [place] Active AZITHROMYCIN 250 MG TABS 2 po qd x 1 day, then 1 po qd x 4 days AZITHROMYCIN 68785309262 No Longer Active Katrina Rinaldi MD PhD Active AZITHROMYCIN 250 MG TABS 2 po qd x 1 day, then 1 po qd x 4 days AZITHROMYCIN 80653508522 No Longer Active Piotr Daley DO Active AZITHROMYCIN 500 MG SOLR 1 po q day AZITHROMYCIN 81867344752 No Longer Active Piotr Daley DO Active NYSTATIN-TRIAMCINOLONE 028880-5.1 UNIT/GM-% CREA apply bid 08/19 NYSTATIN-TRIAMCINOLONE 84679096391 No Longer Active Piotr Daley DO Active IBUPROFEN 800 MG TABS 1 po q 8 hours prn pain sparinly IBUPROFEN 68007213800 No Longer Active Piotr Daley DO Active VITAMIN D3 5000 UNIT CAPS 1 po daily CHOLECALCIFEROL 84373916545 Active Piotr Daley DO Active IBUPROFEN 800 MG TABS 1 po q 8 hours prn pain sparinly IBUPROFEN 800 MG TABS 166121 IBUPROFEN Inactive NYSTATIN-TRIAMCINOLONE 473886-4.1 UNIT/GM-% CREA apply bid 08/19 NYSTATIN-TRIAMCINOLONE 076151-0.1 UNIT/GM-% CREA 0729205 NYSTATIN- TRIAMCINOLONE Inactive AZITHROMYCIN 500 MG SOLR 1 po q day AZITHROMYCIN 500 MG SOLR 193556 AZITHROMYCIN Inactive VENTOLIN HFA 108 (90 BASE) MCG/ACT AERS 2 puffs four times a day PRN cough VENTOLIN HFA 108 (90 BASE) MCG/ACT AERS ALBUTEROL SULFATE Inactive LISINOPRIL 10 MG TABS 1/2-1 tab po every other day LISINOPRIL 10 MG TABS 586149 LISINOPRIL Inactive TUSSIONEX PENNKINETIC ER 10-8 MG/5ML LQCR 5ml po q12hr PRN Cough TUSSIONEX PENNKINETIC ER 10-8 MG/5ML LQCR HYDROCOD POLST- CHLORPHEN POLST Inactive PROMETHAZINE HCL 25 MG TABS 1 four times a day as needed for nausea/vomiting PROMETHAZINE HCL 25 MG TABS 209054 PROMETHAZINE HCL Inactive PREDNISONE 20 MG TAB 1 tablet twice daily for 2 days, then 1 tablet once daily for 2 days PREDNISONE 20 MG TAB 777830 PREDNISONE Inactive WARFARIN SODIUM 4 MG TABS 1 tab every evening WARFARIN SODIUM 4 MG TABS 757112 WARFARIN SODIUM Inactive LOMOTIL 2.5-0.025 MG TAB 1 to 2 four times a day as needed for diarrhea 10/13 LOMOTIL 2.5-0.025 MG TAB 2882929 DIPHENOXYLATE-ATROPINE Inactive IBUPROFEN 800 MG TABS 1 tab every 8 hours as needed IBUPROFEN 800 MG TABS 163092 IBUPROFEN Inactive AZITHROMYCIN 250 MG TABS 2 po qd x 1 day, then 1 po qd x 4 days AZITHROMYCIN 250 MG TABS 1407178 AZITHROMYCIN Inactive AZITHROMYCIN 250 MG TABS 2 po qd x 1 day, then 1 po qd x 4 days AZITHROMYCIN 250 MG TABS 4461497 AZITHROMYCIN Inactive NYSTATIN-TRIAMCINOLONE 702180-9.1 UNIT/GM-% CREA Apply to area BID NYSTATIN-TRIAMCINOLONE 366284-4.1 UNIT/GM-% CREA 9416940 NYSTATIN-TRIAMCINOLONE Inactive AZITHROMYCIN 250 MG TABS 2 po qd x 1 day, then 1 po qd x 4 days AZITHROMYCIN 250 MG TABS 6577134 AZITHROMYCIN Inactive AZITHROMYCIN 250 MG TABS 2 po qd x 1 day, then 1 po qd x 4 days AZITHROMYCIN 250 MG TABS 7393899 AZITHROMYCIN Inactive AZITHROMYCIN 250 MG TABS 2 po qd x 1 day, then 1 po qd x 4 days AZITHROMYCIN 250 MG TABS 0071761 AZITHROMYCIN Inactive Vital Signs Date Name Value [...] ... - Chemistry sodium, serum 142 mmol/L 921-854 8026/12/01 potassium, serum 4.7 mmol/L 3.5-5.2 chloride, serum [...] 142-424 Encounters Code Encounter Date Provider Facility CPT-92639 Level 3 Est. Patient 16:28:11 CDT Piotr Daley [facility] CPT-61713 Level 3 Est. Patient 12:41:58 DECORATOR LIGHTING FIXTURES Piotr Daley [facility] CPT-34125 Level 3 Est. Patient 09:21:[address] [facility] CPT-19784 Level 3 Est. Patient 09:21:11 CDT Piotr Wilson [facility] CPT-85031 Level 3 Est. Patient 11:16:29 DECORATOR LIGHTING FIXTURES Piotr Daley [facility] CPT-42878 Level 3 Est. Patient 18:40:19 DECORATOR LIGHTING FIXTURES Piotr Daley [facility] CPT-79405 Level 3 Est. Patient 19:30:50 CDT Piotr Daley [facility] CPT-84308 Level 3 Est. Patient 22:06:44 CDT Katrina Rinaldi MD PhD [facility] CPT-28158 Level 3 Est. Patient 14:20:00 CDT Piotr Daley [facility] CPT-50290 Level 3 Est. Patient 14:15:22 DECORATOR LIGHTING FIXTURES Piotr Daley [facility] CPT-50981 Level 3 Est. Patient 20:19:57 DECORATOR LIGHTING FIXTURES Piotr Daley [facility] CPT-04264 Level 3 Est. Patient 16:44:32 CDT Piotr Daley [facility] CPT-49590 Level 3 Est. Patient 08:48:46 DECORATOR L[employer]ING FIXTURES Piotr Wilson [facility] CPT-60577 Level 3 Est. Patient 21:01:21 CDT Piotr Wilson [facility] Procedures Code Procedure Name Date Entry Date Standard Description CPT-OV Office Visit 15:45:01 [employer]ORATOR [employer] CPT-36337 Abd compl w upright 17:10:25 CDT
--- OUTSIDE RECORDS SUMMARY | 2018-07-18 08:33 | XMS REPORT | Clinical Summary ---
Author Author Admin, [employer] Organization [employer] Address Unknown Phone Unavailable Allergies, Adverse Reactions, [...] neoplasm of prostate V10.46 Active Alina Meyers [employer] Personal history of malignant neoplasm of prostate [...] THROMBOPHLEBITIS, LEG, 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 Inactive Sirisha Chen [employer] DEEP VENOUS THROMBOPHLEBITIS, LEG, 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 Inactive Sirisha Chen [employer] Seborrheic keratosis ICD-702.19 Inactive Sirisha Chen [employer] Bronchitis-Acute ICD-466.0 Inactive Piotr Daley DO Leg pain, right ICD-729.5 Inactive Sirisha Chen [employer] Right leg pain ICD-729.5 Inactive Sirisha Chen [employer] Bronchitis-Acute ICD-466.0 Inactive Sirisha Chen [employer] TE[employer]BER Knee pain, left ICD-719.46 Inactive Sirisha Chen [employer] Actinic keratoses ICD-702.0 Inactive Sirisha Chen [employer] TE[employer]BER Back pain, thoracic region, left ICD-724.1 Inactive Piotr Daley DO Thoracic back pain ICD-724.5 Inactive Sirisha Chen [employer] Back pain lumbar ICD-724.2 Inactive Sirisha Chen [employer] Insect bite ICD-919.4 Inactive Sirisha Chen [employer] Pruritus ICD-698.9 Inactive Sirisha Chen [employer] 04/09 Medication List Medication Instructions Start Date Stop Date Generic Name NDC Status Provider Patient Instruction TESSALON PERLES 100 MG ORAL CAPSULE 1-2 tablet by mouth 3 times daily 04/16 BENZONATATE 28295635445 Active Piotr Daley DO Active PREDNISONE 10 MG ORAL TABLET 1 tablet by mouth daily PREDNISONE 53011831981 Active Piotr Daley DO Active PREDNISONE 20 MG ORAL TABLET two tabs by mouth today, then one tab by mouth days two and three PREDNISONE 28764815041 No Longer Active Piotr Daley DO Active CYCLOBENZAPRINE HCL 10 MG ORAL TABLET 1 tablet by mouth three times daily as needed for muscle spasm/pain CYCLOBENZAPRINE HCL 24904867613 Active Piotr Daley DO Active ZITHROMAX 250 MG ORAL TABLET Take two (2 ) tablets day one, then one (1) tablet a day for four (4) more days AZITHROMYCIN 88621761568 No Longer Active Piotr Daley DO Active PROAIR HFA 108 (90 BASE) MCG/ACT INHALATION AEROSOL SOLUTION 1-2 puffs four times a day as needed ALBUTEROL SULFATE 47769218389 No Longer Active Emelyn Norris Active DOXYCYCLINE HYCLATE 100 MG ORAL CAPSULE 1 cap by mouth BID x10 days DOXYCYCLINE HYCLATE 38521715857 No Longer Active Nella Harris APRN Active WARFARIN SODIUM 5 MG ORAL TABLET 1 tablet daily M-S, 1/2 tab on Heart WARFARIN SODIUM 96897786227 Active Piotr Daley DO Active PREDNISONE 20 MG ORAL TABLET 2 tabs daily for 3 days, 1 tab daily for 3 days, 1/2 tab daily for 2 days PREDNISONE 31086258853 No Longer Active Matthew Rangel MD Active TRAMADOL HCL 50 MG ORAL TABLET 1 po tid with ES Tylenol TRAMADOL HCL 70412940695 No Longer Active Matthew Rangel MD Active GABAPENTIN 300 MG ORAL CAPSULE 1 po q hs for nerve pain GABAPENTIN 98705468931 No Longer Active Matthew Rangel MD Active PREDNISONE 20 MG ORAL TABLET 2 tablets today, then 1 tablet days 2 through 4 PREDNISONE 61103667419 No Longer Active Piotr Daley DO Active AZITHROMYCIN 250 MG ORAL TABLET 2 po qd x 1 day, then 1 po qd x 4 days 07/12 AZITHROMYCIN 10425990723 No Longer Active Piotr Daley DO Active IBUPROFEN 800 MG ORAL TABLET 1 tab every 8 hours as needed 07/12 IBUPROFEN 29219639995 No Longer Active Piotr Daley DO Active LOMOTIL 2.5-0.025 MG ORAL TABLET 1 to 2 four times a day as needed for diarrhea DIPHENOXYLATE-ATROPINE 01151188457 No Longer Active Piotr Daley DO Active WARFARIN SODIUM 4 MG ORAL TABLET 1 tab every evening WARFARIN SODIUM 82822713391 No Longer Active Piotr Daley DO Active PREDNISONE 20 MG ORAL TABLET 1 tablet twice daily for 2 days, then 1 tablet once daily for 2 days PREDNISONE 03460279495 No Longer Active Piotr Daley DO Active PROMETHAZINE HCL 25 MG ORAL TABLET 1 four times a day as needed for nausea/ vomiting PROMETHAZINE HCL 40111103974 No Longer Active Piotr Daley DO Active TUSSIONEX PENNKINETIC ER 10-8 MG/5ML ORAL SUSPENSION EXTENDED RELEASE 5ml po q12hr PRN Cough HYDROCOD POLST-CHLORPHEN POLST 58055850204 No Longer Active Piotr Daley DO Active AZITHROMYCIN 250 MG ORAL TABLET 2 po qd x 1 day, then 1 po qd x 4 days 10/13 AZITHROMYCIN 53547337862 No Longer Active Piotr Daley DO Active AZITHROMYCIN 250 MG ORAL TABLET 2 po qd x 1 day, then 1 po qd x 4 days 05/07 AZITHROMYCIN 92779790852 No Longer Active Piotr Daley DO Active LISINOPRIL-HYDROCHLOROTHIAZIDE 10-12.5 MG ORAL TABLET 1 tab by mouth daily LISINOPRIL-HYDROCHLOROTHIAZIDE 97393702023 Active Piotr Daley DO Active LISINOPRIL 10 MG ORAL TABLET 1/2-1 tab po every other day LISINOPRIL 06109896351 No Longer Active Piotr Daley DO Active VENTOLIN HFA 108 (90 Base) MCG/ACT INHALATION AEROSOL SOLUTION 2 puffs four times a day PRN cough ALBUTEROL SULFATE 58167527579 No Longer Active Piotr Daley DO Active NYSTATIN-TRIAMCINOLONE 680960-1.1 UNIT/GM-% EXTERNAL CREAM Apply to area BID NYSTATIN-TRIAMCINOLONE 97996804830 No Longer Active Alena Chavira [employer] TE[employer]BER Active PHISOHEX 3 % LIQD Use Directed HEXACHLOROPHENE 49598880084 No Longer Active Sandra Salinas Active AZITHROMYCIN 250 MG ORAL TABLET 2 po qd x 1 day, then 1 po qd x 4 days 10/21 AZITHROMYCIN 21446001508 No Longer Active Katrina Rinaldi MD PhD Active AZITHROMYCIN 250 MG ORAL TABLET 2 po qd x 1 day, then 1 po qd x 4 days 10/16 AZITHROMYCIN 03036354839 No Longer Active Piotr Daley DO Active AZITHROMYCIN 500 MG INTRAVENOUS SOLUTION RECONSTITUTED 1 po q day AZITHROMYCIN 74868228218 No Longer Active Piotr Daley DO Active NYSTATIN-TRIAMCINOLONE 688582-6.1 UNIT/GM-% EXTERNAL CREAM apply bid NYSTATIN-TRIAMCINOLONE 62139268323 No Longer Active Piotr Daley DO Active IBUPROFEN 800 MG ORAL TABLET 1 po q 8 hours prn pain sparinly IBUPROFEN 00063177563 No Longer Active Piotr Daley DO Active VITAMIN D3 5000 UNIT ORAL CAPSULE 1 po daily CHOLECALCIFEROL 93481275154 Active Piotr Daley DO Active IBUPROFEN 800 MG ORAL TABLET 1 po q 8 hours prn pain sparinly IBUPROFEN 800 MG ORAL TABLET 060023 IBUPROFEN Inactive NYSTATIN-TRIAMCINOLONE 855063-0.1 UNIT/GM-% EXTERNAL CREAM apply bid NYSTATIN-TRIAMCINOLONE 572085-6.1 UNIT/GM-% EXTERNAL CREAM 2912029 NYSTATIN-TRIAMCINOLONE Inactive AZITHROMYCIN 500 MG INTRAVENOUS SOLUTION RECONSTITUTED 1 po q day AZITHROMYCIN 500 MG INTRAVENOUS SOLUTION RECONSTITUTED 44946177678 AZITHROMYCIN Inactive VENTOLIN HFA 108 (90 Base) MCG/ACT INHALATION AEROSOL SOLUTION 2 puffs four times a day PRN cough VENTOLIN HFA 108 (90 Base) MCG/ ACT INHALATION AEROSOL SOLUTION ALBUTEROL SULFATE Inactive LISINOPRIL 10 MG ORAL TABLET 1/2-1 tab po every other day LISINOPRIL 10 MG ORAL TABLET 885752 LISINOPRIL Inactive TUSSIONEX PENNKINETIC ER 10-8 MG/5ML ORAL SUSPENSION EXTENDED RELEASE 5ml po q12hr PRN Cough TUSSIONEX PENNKINETIC ER 10-8 MG/5ML ORAL SUSPENSION EXTENDED RELEASE HYDROCOD POLST-CHLORPHEN POLST Inactive PROMETHAZINE HCL 25 MG ORAL TABLET 1 four times a day as needed for nausea/ vomiting PROMETHAZINE HCL 25 MG ORAL TABLET 551387 PROMETHAZINE HCL Inactive PREDNISONE 20 MG ORAL TABLET 1 tablet twice daily for 2 days, then 1 tablet once daily for 2 days PREDNISONE 20 MG ORAL TABLET 868781 PREDNISONE Inactive WARFARIN SODIUM 4 MG ORAL TABLET 1 tab every evening WARFARIN SODIUM 4 MG ORAL TABLET 938014 WARFARIN SODIUM Inactive LOMOTIL 2.5-0.025 MG ORAL TABLET 1 to 2 four times a day as needed for diarrhea LOMOTIL 2.5-0.025 MG ORAL TABLET 1642901 DIPHENOXYLATE-ATROPINE Inactive IBUPROFEN 800 MG ORAL TABLET 1 tab every 8 hours as needed 07/12 IBUPROFEN 800 MG ORAL TABLET 798823 IBUPROFEN Inactive PREDNISONE 20 MG ORAL TABLET 2 tablets today, then 1 tablet days 2 through 4 PREDNISONE 20 MG ORAL TABLET 884219 PREDNISONE Inactive GABAPENTIN 300 MG ORAL CAPSULE 1 po q hs for nerve pain GABAPENTIN 300 MG ORAL CAPSULE 827119 GABAPENTIN Inactive TRAMADOL HCL 50 MG ORAL TABLET 1 po tid with ES Tylenol TRAMADOL HCL 50 MG ORAL TABLET 139371 TRAMADOL HCL Inactive PROAIR HFA 108 (90 BASE) MCG/ACT INHALATION AEROSOL SOLUTION 1-2 puffs four times a day as needed PROAIR HFA 108 (90 BASE) MCG/ACT INHALATION AEROSOL SOLUTION ALBUTEROL SULFATE Inactive PREDNISONE 20 MG ORAL TABLET two tabs by mouth today, then one tab by mouth days two and three PREDNISONE 20 MG ORAL TABLET 411028 PREDNISONE Inactive AZITHROMYCIN 250 MG ORAL TABLET 2 po qd x 1 day, then 1 po qd x 4 days 10/16 AZITHROMYCIN 250 MG ORAL TABLET 717695 AZITHROMYCIN Inactive AZITHROMYCIN 250 MG ORAL TABLET 2 po qd x 1 day, then 1 po qd x 4 days 10/21 AZITHROMYCIN 250 MG ORAL TABLET 399716 AZITHROMYCIN Inactive NYSTATIN-TRIAMCINOLONE 845417-5.1 UNIT/GM-% EXTERNAL CREAM Apply to area BID NYSTATIN-TRIAMCINOLONE 117093-9.1 UNIT/GM-% EXTERNAL CREAM 5112944 NYSTATIN-TRIAMCINOLONE Inactive AZITHROMYCIN 250 MG ORAL TABLET 2 po qd x 1 day, then 1 po qd x 4 days 05/07 AZITHROMYCIN 250 MG ORAL TABLET 820873 AZITHROMYCIN Inactive AZITHROMYCIN 250 MG ORAL TABLET 2 po qd x 1 day, then 1 po qd x 4 days 10/13 AZITHROMYCIN 250 MG ORAL TABLET 394950 AZITHROMYCIN Inactive AZITHROMYCIN 250 MG ORAL TABLET 2 po qd x 1 day, then 1 po qd x 4 days 07/12 AZITHROMYCIN 250 MG ORAL TABLET 678880 AZITHROMYCIN Inactive PREDNISONE 20 MG ORAL TABLET 2 tabs daily for 3 days, 1 tab daily for 3 days, 1/2 tab daily for 2 days PREDNISONE 20 MG ORAL TABLET 460676 PREDNISONE Inactive DOXYCYCLINE HYCLATE 100 MG ORAL CAPSULE 1 cap by mouth BID x10 days DOXYCYCLINE HYCLATE 100 MG ORAL CAPSULE 5958084 DOXYCYCLINE HYCLATE Inactive ZITHROMAX 250 MG ORAL TABLET Take two (2 ) tablets day one, then one (1) tablet a day for four (4) more days ZITHROMAX 250 MG ORAL TABLET 756553 AZITHROMYCIN Inactive Advance Directives Directive Description Start [...] Panel - Chemistry sodium, serum 141 mmol/L 665-848 3734/01/24 potassium, serum 4.3 mmol/L 3.5-5.2 chloride, serum [...] % 11.0-15.0 platelet count 172 THOUSAND/UL 10*3/mm3 676-454 8231/04/12 mean platelet volume 8.6 fL 7.5-12.5 Lab Report: Prothrombin Time - Coagulation prothrombin time (patient) 27.8 SECS s 11.1-13.4 international normalized ratio (INR) 4.2 1.0-3.5 Lab Report: Prothrombin Time Hemochron - Coagulation prothrombin time (patient) 33.0 SECS s 18.9-24.9 Encounters Code Encounter Date Provider Facility CPT-04133 Level 3 Est. Patient 12:33:59 [facility] Piotr Daley [facility] CPT-35661 Level 3 Est. Patient 15:56:17 [employer] [employer] Piotr Daley [facility] CPT-52885 Level 3 Est. Patient 10:34:54 [employer] [employer] Piotr Daley [facility] CPT-33407 Level 3 Est. Patient 17:10:19 [facility] Level 3 Est. Patient 10:48:17 [facility] Matthew Rangel MD [facility] CPT-26452 Level 4 Est. Patient 17:15:07 [employer] [employer] Piotr Daley [facility] CPT-79164 Level 3 Est. Patient 12:46:13 [employer] Piotr Daley [facility] CPT-02175 Level 3 Est. Patient 15:14:31 [facility] [employer] Piotr Daley [facility] CPT-16323 Level 3 Est. Patient 09:20:13 [employer] [employer] Piotr Daley [facility] CPT-70120 Level 3 Est. Patient 09:49:40 CDT Piotr W [facility] CPT-84279 Level 3 Est. Patient 16:28:11 CDT Piotr Daley [facility] CPT-41758 Level 3 Est. Patient 12:41:58 [employer] Piotr Daley [facility] CPT-60856 Level 3 Est. Patient 09:21:24 CDT Piotr Daley [facility] CPT-70184 Level 3 Est. Patient 09:21:11 CDT Piotr Daley [facility] CPT-15420 Level 3 Est. Patient 11:16:29 [employer] [employer] Piotr Daley [facility] CPT-02121 Level 3 Est. Patient 18:40:19 [employer] Piotr Daley [facility] CPT-38410 Level 3 Est. Patient 19:30:50 CDT Piotr Daley [facility] CPT-03404 Level 3 Est. Patient 22:06:44 CDT Katrina Rinaldi MD PhD [facility] CPT-33215 Level 3 Est. Patient 14:20:00 CDT Piotr Daley [facility] CPT-40524 Level 3 Est. Patient 14:15:22 [employer] Piotr Daley [facility] CPT-19920 Level 3 Est. Patient 20:19:57 [employer] Piotr Daley [facility] CPT-22129 Level 3 Est. Patient 16:44:32 CDT Piotr Katie Daley [facility] CPT-88699 Level 3 Est. Patient 08:48:46 [employer] Piotr Daley [facility] CPT-97236 Level 3 Est. Patient 21:01:21 CDT Piotr Katie Edi [facility] Procedures Code Procedure Name Date Entry Date Standard Description CPT-02702 Chest, 2 views 12:55:58 [employer] [employer] CPT-G0439 Subsequent Annual Wellness Exam 10:34:52 [employer] CPT-25471 BMP - LAB USE ONLY 17:19:11 [employer] CPT-52379 PT/INR - LAB USE ONLY 17:19:10 [employer] [employer] CPT-67472 Venipuncture Draw Fee 17:19:10 [employer] [employer] CPT-07795 PT/INR - LAB USE ONLY 08:12:25 [employer] [employer] CPT-24957 Venipuncture Draw Fee 08:12:24 [employer] [employer] CPT-05121 Venipuncture Draw Fee 11:31:07 [employer] [employer] CPT-41629 TPSA - LAB USE ONLY 11:31:07 [employer] [employer] CPT-30877 PT/INR - LAB USE ONLY 11:31:07 [facility] CPT-G0439 Subsequent Annual Wellness Exam 09:59:29 [employer] [employer] CPT-41268 Creatinine - LAB USE ONLY 14:37:55 [employer] CPT-49734 PT/INR - LAB USE ONLY 14:37:55 [facility] CPT-89507 Venipuncture Draw Fee 14:37:55 [employer] CPT-74523 LS spine comp w obliques - XRAY USE ONLY 12:59:25 [employer] [employer] CPT-59075 PT/INR - LAB USE ONLY 13:49:20 CDT CPT-88625 Venipuncture Draw Fee 13:49:19 CDT CPT-40102 PT/INR - LAB USE ONLY 15:48:49 CDT CPT-65091 Venipuncture Draw Fee 15:48:49 CDT CPT-50462 Venipuncture Draw Fee 11:31:59 CDT CPT-26002 PT/INR - LAB USE ONLY 11:31:59 CDT CPT-38750 Venipuncture Draw Fee 13:29:15 CDT CPT-40509 Thoracolumbar AP/Lat 15:19:19 [employer] [employer] CPT-G0438 Initial Annual Wellness Exam 12:18:54 [employer] [employer] CPT-11600 Knee 3V 09:57:38 CDT CPT-OV Office Visit 15:45:01 [employer] [employer] CPT-62089 Abd compl w upright 17:10:25 CDT
--- OUTSIDE RECORDS SUMMARY | 2018-07-18 08:33 | XMS REPORT | Clinical Summary ---
Author Author Admin, [place] Organization [employer] Address Unknown Phone Unavailable Allergies, Adverse Reactions, [...] care facility Actinic keratoses 702.0 Active Piotr W Edi DO Actinic keratosis Personal history of malignant neoplasm of prostate V10.46 Active Alina Meyers HEADER MACHINE OPERATOR Personal history of malignant neoplasm of prostate Coronary artery disease 414.00 Active Alina Meyers HEADER MACHINE OPERATOR Coronary atherosclerosis of unspecified type of vessel, [place] or graft Back pain, thoracic region, left 724.1 Inactive Piotr Katie Edi DO Pain in thoracic spine Thoracic back pain 724.5 Active Piotr W Edi DO Backache, unspecified Back pain lumbar 724.2 Active Piotr Wilson Edi DO Lumbago Peripheral neuropathy, lower extremity, left 356.9 Active 02/19 Piotr W Edi DO Unspecified hereditary and idiopathic peripheral neuropathy Insect bite 919.4 Active Nella Harris HEADER MACHINE OPERATOR Insect bite, nonvenomous, of other, multiple, and unspecified sites, without mention of infection Pruritus 698.9 Active Nella Harris HEADER MACHINE OPERATOR Unspecified pruritic disorder Wellness exam V70.0 [...] times a day as needed ALBUTEROL SULFATE 42023133182 No Longer Active Emelyn Norris Active DOXYCYCLINE HYCLATE 100 MG ORAL CAPSULE 1 cap by mouth BID x10 days DOXYCYCLINE HYCLATE 00950775887 No Longer Active Nella Harris APRN Active WARFARIN SODIUM 5 MG ORAL TABLET 1 tablet daily M-S, 1/2 tab on Heart WARFARIN SODIUM 32208330671 Active Piotr Daley DO Active PREDNISONE 20 MG ORAL TABLET 2 tabs daily for 3 days, 1 tab daily for 3 days, 1/2 tab daily for 2 days PREDNISONE 85509701796 No Longer Active Matthew Rangel MD Active TRAMADOL HCL 50 MG ORAL TABLET 1 po tid with ES Tylenol TRAMADOL HCL 53774740079 No Longer Active Matthew Rangel MD Active GABAPENTIN 300 MG ORAL CAPSULE 1 po q hs for nerve pain GABAPENTIN 61833246640 No Longer Active Matthew Rangel MD Active PREDNISONE 20 MG ORAL TABLET 2 tablets today, then 1 tablet days 2 through 4 PREDNISONE 30651625912 No Longer Active Piotr Daley DO Active AZITHROMYCIN 250 MG ORAL TABLET 2 po qd x 1 day, then 1 po qd x 4 days 07/12 AZITHROMYCIN 52016433684 No Longer Active Piotr Daley DO Active IBUPROFEN 800 MG ORAL TABLET 1 tab every 8 hours as needed 07/12 IBUPROFEN 27523396677 No Longer Active Piotr Daley DO Active LOMOTIL 2.5-0.025 MG ORAL TABLET 1 to 2 four times a day as needed for diarrhea DIPHENOXYLATE-ATROPINE 37141396723 No Longer Active Piotr Daley DO Active WARFARIN SODIUM 4 MG ORAL TABLET 1 tab every evening WARFARIN SODIUM 85460860019 No Longer Active Piotr Daley DO Active PREDNISONE 20 MG ORAL TABLET 1 tablet twice daily for 2 days, then 1 tablet once daily for 2 days PREDNISONE 64089456161 No Longer Active Piotr Daley DO Active PROMETHAZINE HCL 25 MG ORAL TABLET 1 four times a day as needed for nausea/ vomiting PROMETHAZINE HCL 58189668257 No Longer Active Piotr Daley DO Active TUSSIONEX PENNKINETIC ER 10-8 MG/5ML ORAL SUSPENSION EXTENDED RELEASE 5ml po q12hr PRN Cough HYDROCOD POLST-CHLORPHEN POLST 74900538716 No Longer Active Piotr Daley DO Active AZITHROMYCIN 250 MG ORAL TABLET 2 po qd x 1 day, then 1 po qd x 4 days 10/13 AZITHROMYCIN 30753777915 No Longer Active Piotr Daley DO Active AZITHROMYCIN 250 MG ORAL TABLET 2 po qd x 1 day, then 1 po qd x 4 days 05/07 AZITHROMYCIN 35494379283 No Longer Active Piotr Daley DO Active LISINOPRIL-HYDROCHLOROTHIAZIDE 10-12.5 MG ORAL TABLET 1 tab by mouth daily LISINOPRIL-HYDROCHLOROTHIAZIDE 70263737610 Active Piotr Daley DO Active LISINOPRIL 10 MG ORAL TABLET 1/2-1 tab po every other day LISINOPRIL 66033284641 No Longer Active Piotr Daley DO Active VENTOLIN HFA 108 (90 Base) MCG/ACT INHALATION AEROSOL SOLUTION 2 puffs four times a day PRN cough ALBUTEROL SULFATE 04675735786 No Longer Active Piotr Daley DO Active NYSTATIN-TRIAMCINOLONE 940341-2.1 UNIT/GM-% EXTERNAL CREAM Apply to area BID NYSTATIN-TRIAMCINOLONE 08579492505 No Longer Active Alena Chavira SONOGRAM TECHNICIAN Active PHISOHEX 3 % LIQD Use Directed HEXACHLOROPHENE 86879198098 No Longer Active Sandra Denton Active AZITHROMYCIN 250 MG ORAL TABLET 2 po qd x 1 day, then 1 po qd x 4 days 10/21 AZITHROMYCIN 01861765814 No Longer Active Katrina Rinaldi MD PhD Active AZITHROMYCIN 250 MG ORAL TABLET 2 po qd x 1 day, then 1 po qd x 4 days 10/16 AZITHROMYCIN 69043876015 No Longer Active Piotr Daley DO Active AZITHROMYCIN 500 MG INTRAVENOUS SOLUTION RECONSTITUTED 1 po q day AZITHROMYCIN 17641526629 No Longer Active Piotr Daley DO Active NYSTATIN-TRIAMCINOLONE 167055-8.1 UNIT/GM-% EXTERNAL CREAM apply bid NYSTATIN-TRIAMCINOLONE 50630785075 No Longer Active Piotr Daley DO Active IBUPROFEN 800 MG ORAL TABLET 1 po q 8 hours prn pain sparinly IBUPROFEN 42787299667 No Longer Active Piotr Daley DO Active VITAMIN D3 5000 UNIT ORAL CAPSULE 1 po daily CHOLECALCIFEROL 99998884221 Active Piotr Daley DO Active IBUPROFEN 800 MG ORAL TABLET 1 po q 8 hours prn pain sparinly IBUPROFEN 800 MG ORAL TABLET 458966 IBUPROFEN Inactive NYSTATIN-TRIAMCINOLONE 940230-7.1 UNIT/GM-% EXTERNAL CREAM apply bid NYSTATIN-TRIAMCINOLONE 260036-2.1 UNIT/GM-% EXTERNAL CREAM 7121108 NYSTATIN-TRIAMCINOLONE Inactive AZITHROMYCIN 500 MG INTRAVENOUS SOLUTION RECONSTITUTED 1 po q day AZITHROMYCIN 500 MG INTRAVENOUS SOLUTION RECONSTITUTED 74783594934 AZITHROMYCIN Inactive VENTOLIN HFA 108 (90 Base) MCG/ACT INHALATION AEROSOL SOLUTION 2 puffs four times a day PRN cough VENTOLIN HFA 108 (90 Base) MCG/ ACT INHALATION AEROSOL SOLUTION ALBUTEROL SULFATE Inactive LISINOPRIL 10 MG ORAL TABLET 1/2-1 tab po every other day LISINOPRIL 10 MG ORAL TABLET 185295 LISINOPRIL Inactive TUSSIONEX PENNKINETIC ER 10-8 MG/5ML ORAL SUSPENSION EXTENDED RELEASE 5ml po q12hr PRN Cough TUSSIONEX PENNKINETIC ER 10-8 MG/5ML ORAL SUSPENSION EXTENDED RELEASE HYDROCOD POLST-CHLORPHEN POLST Inactive PROMETHAZINE HCL 25 MG ORAL TABLET 1 four times a day as needed for nausea/ vomiting PROMETHAZINE HCL 25 MG ORAL TABLET 776933 PROMETHAZINE HCL Inactive PREDNISONE 20 MG ORAL TABLET 1 tablet twice daily for 2 days, then 1 tablet once daily for 2 days PREDNISONE 20 MG ORAL TABLET 724604 PREDNISONE Inactive WARFARIN SODIUM 4 MG ORAL TABLET 1 tab every evening WARFARIN SODIUM 4 MG ORAL TABLET 156395 WARFARIN SODIUM Inactive LOMOTIL 2.5-0.025 MG ORAL TABLET 1 to 2 four times a day as needed for diarrhea LOMOTIL 2.5-0.025 MG ORAL TABLET 6985385 DIPHENOXYLATE-ATROPINE Inactive IBUPROFEN 800 MG ORAL TABLET 1 tab every 8 hours as needed 07/12 IBUPROFEN 800 MG ORAL TABLET 118142 IBUPROFEN Inactive PREDNISONE 20 MG ORAL TABLET 2 tablets today, then 1 tablet days 2 through 4 PREDNISONE 20 MG ORAL TABLET 917209 PREDNISONE Inactive GABAPENTIN 300 MG ORAL CAPSULE 1 po q hs for nerve pain GABAPENTIN 300 MG ORAL CAPSULE 013756 GABAPENTIN Inactive TRAMADOL HCL 50 MG ORAL TABLET 1 po tid with ES Tylenol TRAMADOL HCL 50 MG ORAL TABLET 127520 TRAMADOL HCL Inactive PROAIR HFA 108 (90 BASE) MCG/ACT INHALATION AEROSOL SOLUTION 1-2 puffs four times a day as needed PROAIR HFA 108 (90 BASE) MCG/ACT INHALATION AEROSOL SOLUTION ALBUTEROL SULFATE Inactive AZITHROMYCIN 250 MG ORAL TABLET 2 po qd x 1 day, then 1 po qd x 4 days 10/16 AZITHROMYCIN 250 MG ORAL TABLET 358192 AZITHROMYCIN Inactive AZITHROMYCIN 250 MG ORAL TABLET 2 po qd x 1 day, then 1 po qd x 4 days 10/21 AZITHROMYCIN 250 MG ORAL TABLET 167106 AZITHROMYCIN Inactive NYSTATIN-TRIAMCINOLONE 698352-4.1 UNIT/GM-% EXTERNAL CREAM Apply to area BID NYSTATIN-TRIAMCINOLONE 944472-7.1 UNIT/GM-% EXTERNAL CREAM 3823780 NYSTATIN-TRIAMCINOLONE Inactive AZITHROMYCIN 250 MG ORAL TABLET 2 po qd x 1 day, then 1 po qd x 4 days 05/07 AZITHROMYCIN 250 MG ORAL TABLET 732773 AZITHROMYCIN Inactive AZITHROMYCIN 250 MG ORAL TABLET 2 po qd x 1 day, then 1 po qd x 4 days 10/13 AZITHROMYCIN 250 MG ORAL TABLET 763716 AZITHROMYCIN Inactive AZITHROMYCIN 250 MG ORAL TABLET 2 po qd x 1 day, then 1 po qd x 4 days 07/12 AZITHROMYCIN 250 MG ORAL TABLET 940582 AZITHROMYCIN Inactive PREDNISONE 20 MG ORAL TABLET 2 tabs daily for 3 days, 1 tab daily for 3 days, 1/2 tab daily for 2 days PREDNISONE 20 MG ORAL TABLET 058825 PREDNISONE Inactive DOXYCYCLINE HYCLATE 100 MG ORAL CAPSULE 1 cap by mouth BID x10 days DOXYCYCLINE HYCLATE 100 MG ORAL CAPSULE 4231927 DOXYCYCLINE HYCLATE Inactive Advance Directives Directive Description [...] Lab Report: Basic Metabolic Panel - Chemistry calcium, serum 8.5 mg/dL 8.5-10.1 urea nitrogen, blood 16 mg/dL 7-18 creatinine, serum 1.09 mg/dL 0.55-1.30 blood glucose 90 mg/dL 65-110 carbon dioxide, venous blood 30.7 mmol/L 21.0-32.0 chloride, serum 103 mmol/L 98-107 potassium, serum [...] % 11.0-15.0 platelet count 172 THOUSAND/UL 10*3/mm3 929-018 1551/04/12 mean platelet volume 8.6 fL 7.5-12.5 Lab [...] 18.9-24.9 Encounters Code Encounter Date Provider Facility CPT-90007 Level 3 Est. Patient 10:34:54 BUS TRANSPORTATION MANAGER Piotr Wilson Edi [facility] CPT-28173 Level 3 Est. Patient 17:10:19 CDT Nella Harris APRN [facility] CPT-72087 Level 3 Est. Patient 10:48:17 BUS TRANSPORTATION MANAGER Matthew Rangel MD [facility] CPT-92104 Level 4 Est. Patient 17:15:07 BUS TRANSPORTATION MANAGER Piotr Wilson Edi [facility] CPT-17485 Level 3 Est. Patient 12:46:13 BUS TRANSPORTATION MANAGER Piotr Wilson Edi [facility] CPT-29441 Level 3 Est. Patient 15:14:31 BUS TRANSPORTATION MANAGER Piotr Wilson Edi [facility] CPT-27292 Level 3 Est. Patient 09:20:13 BUS TRANSPORTATION MANAGER Piotr Wilson Edi [facility] CPT-43965 Level 3 Est. Patient 09:49:40 CDT Piotr Katie Daley [facility] CPT-68922 Level 3 Est. Patient 16:28:11 CDT Piotr Wilson Edi [facility] CPT-35805 Level 3 Est. Patient 12:41:58 BUS TRANSPORTATION MANAGER Piotr Daley [facility] CPT-73022 Level 3 Est. Patient 09:21:24 CDT Piotr Katie Daley [facility] CPT-97945 Level 3 Est. Patient 09:21:11 CDT Piotr Katie Daley [facility] CPT-23049 Level 3 Est. Patient 11:16:29 BUS TRANSPORTATION MANAGER Piotr Daley [facility] CPT-21539 Level 3 Est. Patient 18:40:19 BUS TRANSPORTATION MANAGER Piotr Daley [facility] CPT-50976 Level 3 Est. Patient 19:30:50 CDT Piotr Wilson Edi [facility] CPT-48745 Level 3 Est. Patient 22:06:44 CDT Katrina Rinaldi MD PhD [facility] CPT-47088 Level 3 Est. Patient 14:20:00 CDT Pitor Daley [facility] CPT-26899 Level 3 Est. Patient 14:15:22 BUS TRANSPORTATION MANAGER Piotr Daley [facility] CPT-65230 Level 3 Est. Patient 20:19:57 BUS TRANSPORTATION MANAGER Piotr Daley [facility] CPT-22855 Level 3 Est. Patient 16:44:32 CDT Piotr Daley [facility] CPT-62534 Level 3 Est. Patient 08:48:46 BUS TRANSPORTATION MANAGER Piotr Daley [facility] CPT-14410 Level 3 Est. Patient 21:01:21 CDT Piotr Daley [facility] Procedures Code Procedure Name Date Entry Date Standard Description CPT-G0439 Subsequent Annual Wellness Exam 10:34:52 [facility] CPT-68627 BMP - LAB USE ONLY 17:19:11 [facility] CPT-52064 PT/INR - LAB USE ONLY 17:19:10 [facility] CPT-90243 Venipuncture Draw Fee 17:19:10 BUS TRANSPORTATION MANAGER CPT-96351 PT/INR - LAB USE ONLY 08:12:25 [facility] CPT-46253 Venipuncture Draw Fee 08:12:24 BUS TRANSPORTATION MANAGER CPT-75588 Venipuncture Draw Fee 11:31:07 BUS TRANSPORTATION MANAGER CPT-22600 TPSA - LAB USE ONLY 11:31:07 BUS TRANSPORTATION MANAGER CPT-09047 PT/INR - LAB USE ONLY 11:31:07 [facility] CPT-G0439 Subsequent Annual Wellness Exam 09:59:29 BUS TRANSPORTATION MANAGER CPT-09529 Creatinine - LAB USE ONLY 14:37:55 BUS TRANSPORTATION MANAGER CPT-04997 PT/INR - LAB USE ONLY 14:37:55 BUS TRANSPORTATION MANAGER CPT-19376 Venipuncture Draw Fee 14:37:55 BUS TRANSPORTATION MANAGER CPT-26320 LS spine comp w obliques - XRAY USE ONLY 12:59:25 BUS TRANSPORTATION MANAGER CPT-63042 PT/INR - LAB USE ONLY 13:49:20 CDT CPT-95936 Venipuncture Draw Fee 13:49:19 CDT CPT-25629 PT/INR - LAB USE ONLY 15:48:49 CDT CPT-94225 Venipuncture Draw Fee 15:48:49 CDT CPT-45503 Venipuncture Draw Fee 11:31:59 CDT CPT-79198 PT/INR - LAB USE ONLY 11:31:59 CDT CPT-43651 Venipuncture Draw Fee 13:29:15 CDT CPT-89189 Thoracolumbar AP/Lat 15:19:19 BUS TRANSPORTATION MANAGER CPT-G0438 Initial Annual Wellness Exam 12:18:54 BUS TRANSPORTATION MANAGER CPT-96393 Knee 3V 09:57:38 CDT CPT-OV Office Visit 15:45:01 BUS TRANSPORTATION MANAGER CPT-41791 Abd compl w upright 17:10:25 CDT
--- OUTSIDE RECORDS SUMMARY | 2018-07-18 08:34 | XMS REPORT | Clinical Summary ---
Author Author Admin, E Organization [employer] Address Unknown Phone Unavailable Allergies, Adverse Reactions, [...] DO Pain in limb Bronchitis-Acute 466.0 Active Poitr Katie Edi DO Acute bronchitis Knee pain, left 719.46 Active Piotr Katie Daley DO Pain in joint involving lower leg Health maintenance exam V70.0 Active Adriane Rojo LPN Routine general medical examination at a health care facility Actinic keratoses 702.0 Active Piotr Katie Edi DO Actinic keratosis Personal history of malignant neoplasm of prostate V10.46 Active Alina Meyers CHEMICAL BLENDER Personal history of malignant neoplasm of prostate Coronary artery disease 414.00 Active Alina Luigi CHEMICAL BLENDER Coronary atherosclerosis of unspecified type of vessel, [place] or graft Back pain, thoracic region, left [...] MG TABS 1 tablet daily WARFARIN SODIUM 81474023353 Active Emelyn Goode RPT,RMA Active TRAMADOL HCL 50 MG TABS 1 po tid with ES Tylenol TRAMADOL HCL 71984517351 Active Piotr Daley DO Active PREDNISONE 20 MG TAB 2 tablets today, then 1 tablet days 2 through 4 PREDNISONE 16835160426 No Longer Active Piotr Daley DO Active AZITHROMYCIN 250 MG TABS 2 po qd x 1 day, then 1 po qd x 4 days AZITHROMYCIN 53476332953 No Longer Active Piotr Daley DO Active IBUPROFEN 800 MG TABS 1 tab every 8 hours as needed IBUPROFEN 82836536890 No Longer Active Piotr Daley DO Active LOMOTIL 2.5-0.025 MG TAB 1 to 2 four times a day as needed for diarrhea 10/13 DIPHENOXYLATE-ATROPINE 29055188693 No Longer Active Piotr Daley DO Active WARFARIN SODIUM 4 MG TABS 1 tab every evening WARFARIN SODIUM 88840204185 No Longer Active Piotr Daley DO Active PREDNISONE 20 MG TAB 1 tablet twice daily for 2 days, then 1 tablet once daily for 2 days PREDNISONE 76803705211 No Longer Active Piotr Daley DO Active PROMETHAZINE HCL 25 MG TABS 1 four times a day as needed for nausea/vomiting PROMETHAZINE HCL 86818414375 No Longer Active Piotr Daley DO Active TUSSIONEX PENNKINETIC ER 10-8 MG/5ML LQCR 5ml po q12hr PRN Cough HYDROCOD POLST-CHLORPHEN POLST 52072048015 No Longer Active Piotr W Edi DO Active AZITHROMYCIN 250 MG TABS 2 po qd x 1 day, then 1 po qd x 4 days AZITHROMYCIN 62173856380 No Longer Active Piotr Daley DO Active AZITHROMYCIN 250 MG TABS 2 po qd x 1 day, then 1 po qd x 4 days AZITHROMYCIN 10922588331 No Longer Active Piotr Daley DO Active LISINOPRIL-HYDROCHLOROTHIAZIDE 10-12.5 MG TABS 1 tab by mouth daily LISINOPRIL-HYDROCHLOROTHIAZIDE 14207181343 Active Hilary Ma MA Active LISINOPRIL 10 MG TABS 1/2-1 tab po every other day LISINOPRIL 01367794461 No Longer Active Piotr Daley DO Active VENTOLIN HFA 108 (90 BASE) MCG/ACT AERS 2 puffs four times a day PRN cough ALBUTEROL SULFATE 88157054279 No Longer Active Piotr Daley DO Active NYSTATIN-TRIAMCINOLONE 667980-0.1 UNIT/GM-% CREA Apply to area BID NYSTATIN-TRIAMCINOLONE 60181779015 No Longer Active Alena Oswaldum SEBD TEACHER Active PHISOHEX 3 % LIQD Use Directed HEXACHLOROPHENE 75437256761 No Longer Active Sandra [place] Active AZITHROMYCIN 250 MG TABS 2 po qd x 1 day, then 1 po qd x 4 days AZITHROMYCIN 09764865048 No Longer Active Katrina Rinaldi MD PhD Active AZITHROMYCIN 250 MG TABS 2 po qd x 1 day, then 1 po qd x 4 days AZITHROMYCIN 33014366290 No Longer Active Piotr Daley DO Active AZITHROMYCIN 500 MG SOLR 1 po q day AZITHROMYCIN 30139850646 No Longer Active Piotr Daley DO Active NYSTATIN-TRIAMCINOLONE 855821-9.1 UNIT/GM-% CREA apply bid 08/19 NYSTATIN-TRIAMCINOLONE 55067265536 No Longer Active Piotr Daley DO Active IBUPROFEN 800 MG TABS 1 po q 8 hours prn pain sparinly IBUPROFEN 23260049714 No Longer Active Piotr Daley DO Active VITAMIN D3 5000 UNIT CAPS 1 po daily CHOLECALCIFEROL 58009315258 Active Piotr Daley DO Active IBUPROFEN 800 MG TABS 1 po q 8 hours prn pain sparinly IBUPROFEN 800 MG TABS 298612 IBUPROFEN Inactive NYSTATIN-TRIAMCINOLONE 420778-3.1 UNIT/GM-% CREA apply bid 08/19 NYSTATIN-TRIAMCINOLONE 168584-3.1 UNIT/GM-% CREA 3521372 NYSTATIN- TRIAMCINOLONE Inactive AZITHROMYCIN 500 MG SOLR 1 po q day AZITHROMYCIN 500 MG SOLR 05022389546 AZITHROMYCIN Inactive VENTOLIN HFA 108 (90 BASE) MCG/ACT AERS 2 puffs four times a day PRN cough VENTOLIN HFA 108 (90 BASE) MCG/ACT AERS ALBUTEROL SULFATE Inactive LISINOPRIL 10 MG TABS 1/2-1 tab po every other day LISINOPRIL 10 MG TABS 428671 LISINOPRIL Inactive TUSSIONEX PENNKINETIC ER 10-8 MG/5ML LQCR 5ml po q12hr PRN Cough TUSSIONEX PENNKINETIC ER 10-8 MG/5ML LQCR HYDROCOD POLST- CHLORPHEN POLST Inactive PROMETHAZINE HCL 25 MG TABS 1 four times a day as needed for nausea/vomiting PROMETHAZINE HCL 25 MG TABS 276542 PROMETHAZINE HCL Inactive PREDNISONE 20 MG TAB 1 tablet twice daily for 2 days, then 1 tablet once daily for 2 days PREDNISONE 20 MG TAB 847572 PREDNISONE Inactive WARFARIN SODIUM 4 MG TABS 1 tab every evening WARFARIN SODIUM 4 MG TABS 010450 WARFARIN SODIUM Inactive LOMOTIL 2.5-0.025 MG TAB 1 to 2 four times a day as needed for diarrhea 10/13 LOMOTIL 2.5-0.025 MG TAB 4780465 DIPHENOXYLATE-ATROPINE Inactive IBUPROFEN 800 MG TABS 1 tab every 8 hours as needed IBUPROFEN 800 MG TABS 474162 IBUPROFEN Inactive PREDNISONE 20 MG TAB 2 tablets today, then 1 tablet days 2 through 4 PREDNISONE 20 MG TAB 718809 PREDNISONE Inactive AZITHROMYCIN 250 MG TABS 2 po qd x 1 day, then 1 po qd x 4 days AZITHROMYCIN 250 MG TABS 8854713 AZITHROMYCIN Inactive AZITHROMYCIN 250 MG TABS 2 po qd x 1 day, then 1 po qd x 4 days AZITHROMYCIN 250 MG TABS 2022857 AZITHROMYCIN Inactive NYSTATIN-TRIAMCINOLONE 246731-7.1 UNIT/GM-% CREA Apply to area BID NYSTATIN-TRIAMCINOLONE 414900-7.1 UNIT/GM-% CREA 0953791 NYSTATIN-TRIAMCINOLONE Inactive AZITHROMYCIN 250 MG TABS 2 po qd x 1 day, then 1 po qd x 4 days AZITHROMYCIN 250 MG TABS 9711166 AZITHROMYCIN Inactive AZITHROMYCIN 250 MG TABS 2 po qd x 1 day, then 1 po qd x 4 days AZITHROMYCIN 250 MG TABS 3155017 AZITHROMYCIN Inactive AZITHROMYCIN 250 MG TABS 2 po qd x 1 day, then 1 po qd x 4 days AZITHROMYCIN 250 MG TABS 9538146 AZITHROMYCIN Inactive Advance Directives Directive Description Start [...] Panel - Chemistry sodium, serum 141 mmol/L 242-312 1495/06/28 carbon dioxide, venous blood 31.0 mmol/L 21.0-32.0 [...] 5.0-8.5 Encounters Code Encounter Date Provider Facility CPT-91351 Level 3 Est. Patient 15:14:31 FINANCIAL SERVICES REP Piotr Daley DO [facility] CPT-97338 Level 3 Est. Patient 09:20:13 FINANCIAL SERVICES REP Piotr Daley [facility] CPT-64596 Level 3 Est. Patient 09:49:40 CDT Piotr Daley [facility] CPT-57481 Level 3 Est. Patient 16:28:[address] [facility] CPT-67124 Level 3 Est. Patient 12:41:58 FINANCIAL SERVICES REP Piotr Daley [facility] CPT-05979 Level 3 Est. Patient 09:21:24 CDT Piotr Daley [facility] CPT-15346 Level 3 Est. Patient 09:21:11 CDT Piotr Daley [facility] CPT-92361 Level 3 Est. Patient 11:16:29 FINANCIAL SERVICES REP Piotr Daley [facility] CPT-92369 Level 3 Est. Patient 18:40:19 FINANCIAL SERVICES REP Piotr Daley [facility] CPT-08762 Level 3 Est. Patient 19:30:[address] [facility] CPT-32239 Level 3 Est. Patient 22:06:44 CDT Katrina Rinaldi MD [facility] CPT-64354 Level 3 Est. Patient 14:20:[address] [facility] CPT-30110 Level 3 Est. Patient 14:15:22 FINANCIAL SERVICES REP Piotr Daley [facility] CPT-13573 Level 3 Est. Patient 20:19:57 FINANCIAL SERVICES REP Piotr Daley [facility] CPT-52190 Level 3 Est. Patient 16:44:[address] [facility] CPT-66351 Level 3 Est. Patient 08:48:46 FINANCIAL SERVICES REP Piotr Daley [facility] CPT-43640 Level 3 Est. Patient 21:01:[address] [facility] Procedures Code Procedure Name Date Entry Date Standard Description CPT-71554 Venipuncture Draw Fee 11:31:59 CDT CPT-05016 PT/INR - LAB USE ONLY 11:31:59 CDT CPT-31215 Venipuncture Draw Fee 13:29:15 CDT CPT-31666 Thoracolumbar AP/Lat 15:19:19 FINANCIAL SERVICES REP CPT-G0438 Initial Annual Wellness Exam 12:18:54 FINANCIAL SERVICES REP CPT-09809 Knee 3V 09:57:38 CDT CPT-OV Office Visit 15:45:01 FINANCIAL SERVICES REP CPT-14764 Abd compl w upright 17:10:25 CDT
--- OUTSIDE RECORDS SUMMARY | 2018-07-18 08:35 | XMS REPORT | Clinical Summary ---
Author Author Admin, Isidra Organization [facility] Address Unknown Phone Unavailable Allergies, Adverse Reactions, [...] times a day as needed ALBUTEROL SULFATE 60609683134 Active Matthew Rangel MD Active PREDNISONE 20 MG TAB 2 tabs daily for 3 days, 1 tab daily for 3 days, 1/2 tab daily for 2 days PREDNISONE 73270898136 No Longer Active Matthew Rangel MD Active TRAMADOL HCL 50 MG TABS 1 po tid with ES Tylenol TRAMADOL HCL 93862828958 No Longer Active Matthew Rangel MD Active GABAPENTIN 300 MG CAPS 1 po q hs for nerve pain GABAPENTIN 83946521288 No Longer Active Matthew Rangel MD Active WARFARIN SODIUM 5 MG TABS 1 tablet daily WARFARIN SODIUM 20352631099 Active Anahy Loja Active PREDNISONE 20 MG TAB 2 tablets today, then 1 tablet days 2 through 4 PREDNISONE 51566704968 No Longer Active Piotr Daley DO Active AZITHROMYCIN 250 MG TABS 2 po qd x 1 day, then 1 po qd x 4 days AZITHROMYCIN 16956523655 No Longer Active Piotr Daley DO Active IBUPROFEN 800 MG TABS 1 tab every 8 hours as needed IBUPROFEN 18371898488 No Longer Active Piotr Daley DO Active LOMOTIL 2.5-0.025 MG TAB 1 to 2 four times a day as needed for diarrhea 10/13 DIPHENOXYLATE-ATROPINE 48582913506 No Longer Active Piotr Daley DO Active WARFARIN SODIUM 4 MG TABS 1 tab every evening WARFARIN SODIUM 10242146515 No Longer Active Piotr Daley DO Active PREDNISONE 20 MG TAB 1 tablet twice daily for 2 days, then 1 tablet once daily for 2 days PREDNISONE 30187024165 No Longer Active Piotr Daley DO Active PROMETHAZINE HCL 25 MG TABS 1 four times a day as needed for nausea/vomiting PROMETHAZINE HCL 69162158307 No Longer Active Piotr Daley DO Active TUSSIONEX PENNKINETIC ER 10-8 MG/5ML LQCR 5ml po q12hr PRN Cough HYDROCOD POLST-CHLORPHEN POLST 61959223491 No Longer Active Piotr Daley DO Active AZITHROMYCIN 250 MG TABS 2 po qd x 1 day, then 1 po qd x 4 days AZITHROMYCIN 40777125837 No Longer Active Piotr Daley DO Active AZITHROMYCIN 250 MG TABS 2 po qd x 1 day, then 1 po qd x 4 days AZITHROMYCIN 50705985972 No Longer Active Piotr Daley DO Active LISINOPRIL-HYDROCHLOROTHIAZIDE 10-12.5 MG TABS 1 tab by mouth daily LISINOPRIL-HYDROCHLOROTHIAZIDE 94243225953 Active Catalina Freitas Active LISINOPRIL 10 MG TABS 1/2-1 tab po every other day LISINOPRIL 84511290508 No Longer Active Piotr Daley DO Active VENTOLIN HFA 108 (90 BASE) MCG/ACT AERS 2 puffs four times a day PRN cough ALBUTEROL SULFATE 27692622867 No Longer Active Piotr Daley DO Active NYSTATIN-TRIAMCINOLONE 905290-0.1 UNIT/GM-% CREA Apply to area BID NYSTATIN-TRIAMCINOLONE 84554467451 No Longer Active Alena Chavira ORANGE PICKING SUPERVISOR Active PHISOHEX 3 % LIQD Use Directed HEXACHLOROPHENE 26036978935 No Longer Active Sandra Dentarger Active AZITHROMYCIN 250 MG TABS 2 po qd x 1 day, then 1 po qd x 4 days AZITHROMYCIN 30713427665 No Longer Active Katrina Rinaldi MD PhD Active AZITHROMYCIN 250 MG TABS 2 po qd x 1 day, then 1 po qd x 4 days AZITHROMYCIN 62035051634 No Longer Active Piotr Daley DO Active AZITHROMYCIN 500 MG SOLR 1 po q day AZITHROMYCIN 72326553789 No Longer Active Piotr Daley DO Active NYSTATIN-TRIAMCINOLONE 800330-7.1 UNIT/GM-% CREA apply bid 08/19 NYSTATIN-TRIAMCINOLONE 51661936531 No Longer Active Piotr Daley DO Active IBUPROFEN 800 MG TABS 1 po q 8 hours prn pain sparinly IBUPROFEN 16022085989 No Longer Active Piotr Daley DO Active VITAMIN D3 5000 UNIT CAPS 1 po daily CHOLECALCIFEROL 79332603147 Active Piotr Daley DO Active IBUPROFEN 800 MG TABS 1 po q 8 hours prn pain sparinly IBUPROFEN 800 MG TABS 118685 IBUPROFEN Inactive NYSTATIN-TRIAMCINOLONE 321462-6.1 UNIT/GM-% CREA apply bid 08/19 NYSTATIN-TRIAMCINOLONE 844466-8.1 UNIT/GM-% CREA 5824563 NYSTATIN- TRIAMCINOLONE Inactive AZITHROMYCIN 500 MG SOLR 1 po q day AZITHROMYCIN 500 MG SOLR 46401965133 AZITHROMYCIN Inactive VENTOLIN HFA 108 (90 BASE) MCG/ACT AERS 2 puffs four times a day PRN cough VENTOLIN HFA 108 (90 BASE) MCG/ACT AERS ALBUTEROL SULFATE Inactive LISINOPRIL 10 MG TABS 1/2-1 tab po every other day LISINOPRIL 10 MG TABS 240959 LISINOPRIL Inactive TUSSIONEX PENNKINETIC ER 10-8 MG/5ML LQCR 5ml po q12hr PRN Cough TUSSIONEX PENNKINETIC ER 10-8 MG/5ML LQCR HYDROCOD POLST- CHLORPHEN POLST Inactive PROMETHAZINE HCL 25 MG TABS 1 four times a day as needed for nausea/vomiting PROMETHAZINE HCL 25 MG TABS 093897 PROMETHAZINE HCL Inactive PREDNISONE 20 MG TAB 1 tablet twice daily for 2 days, then 1 tablet once daily for 2 days PREDNISONE 20 MG TAB 955007 PREDNISONE Inactive WARFARIN SODIUM 4 MG TABS 1 tab every evening WARFARIN SODIUM 4 MG TABS 708132 WARFARIN SODIUM Inactive LOMOTIL 2.5-0.025 MG TAB 1 to 2 four times a day as needed for diarrhea 10/13 LOMOTIL 2.5-0.025 MG TAB 9473924 DIPHENOXYLATE-ATROPINE Inactive IBUPROFEN 800 MG TABS 1 tab every 8 hours as needed IBUPROFEN 800 MG TABS 800314 IBUPROFEN Inactive PREDNISONE 20 MG TAB 2 tablets today, then 1 tablet days 2 through 4 PREDNISONE 20 MG TAB 951994 PREDNISONE Inactive GABAPENTIN 300 MG CAPS 1 po q hs for nerve pain GABAPENTIN 300 MG CAPS 988293 GABAPENTIN Inactive TRAMADOL HCL 50 MG TABS 1 po tid with ES Tylenol TRAMADOL HCL 50 MG TABS 160829 TRAMADOL HCL Inactive AZITHROMYCIN 250 MG TABS 2 po qd x 1 day, then 1 po qd x 4 days AZITHROMYCIN 250 MG TABS 3666417 AZITHROMYCIN Inactive AZITHROMYCIN 250 MG TABS 2 po qd x 1 day, then 1 po qd x 4 days AZITHROMYCIN 250 MG TABS 3842553 AZITHROMYCIN Inactive NYSTATIN-TRIAMCINOLONE 037227-2.1 UNIT/GM-% CREA Apply to area BID NYSTATIN-TRIAMCINOLONE 815366-9.1 UNIT/GM-% CREA 7164748 NYSTATIN-TRIAMCINOLONE Inactive AZITHROMYCIN 250 MG TABS 2 po qd x 1 day, then 1 po qd x 4 days AZITHROMYCIN 250 MG TABS 1787153 AZITHROMYCIN Inactive AZITHROMYCIN 250 MG TABS 2 po qd x 1 day, then 1 po qd x 4 days AZITHROMYCIN 250 MG TABS 3879352 AZITHROMYCIN Inactive AZITHROMYCIN 250 MG TABS 2 po qd x 1 day, then 1 po qd x 4 days AZITHROMYCIN 250 MG TABS 6520631 AZITHROMYCIN Inactive PREDNISONE 20 MG TAB 2 tabs daily for 3 days, 1 tab daily for 3 days, 1/2 tab daily for 2 days PREDNISONE 20 MG TAB 555634 PREDNISONE Inactive Advance Directives Directive Description Start [...] Panel - Chemistry sodium, serum 141 mmol/L 487-534 5606/01/24 potassium, serum 4.3 mmol/L 3.5-5.2 chloride, serum [...] % 11.0-15.0 platelet count 172 THOUSAND/UL 10*3/mm3 561-004 7039/04/12 mean platelet volume 8.6 fL 7.5-12.5 Lab Report: Comp. Metabolic Panel - Chemistry sodium, serum 141 mmol/L 032-539 4995/06/28 carbon dioxide, venous blood 31.0 mmol/L 21.0-32.0 [...] 1.0-3.5 Encounters Code Encounter Date Provider Facility CPT-15730 Level 3 Est. Patient 10:48:17 YARDAGE TUFTING MACHINE OPERATOR Matthew Rangel MD [facility] CPT-57225 Level 4 Est. Patient 17:15:07 YARDAGE TUFTING MACHINE OPERATOR Piotr Daley [facility] CPT-97790 Level 3 Est. Patient 12:46:13 YARDAGE TUFTING MACHINE OPERATOR Piotr Daley [facility] CPT-38011 Level 3 Est. Patient 15:14:31 YARDAGE TUFTING MACHINE OPERATOR Piotr Daley [facility] CPT-13938 Level 3 Est. Patient 09:20:13 YARDAGE TUFTING MACHINE OPERATOR Piotr Daley [facility] CPT-39951 Level 3 Est. Patient 09:49:40 CDT Piotr Wilson [facility] CPT-83792 Level 3 Est. Patient 16:28:11 CDT Piotr Daley [facility] CPT-16474 Level 3 Est. Patient 12:41:58 YARDAGE TUFTING MACHINE OPERATOR Piotr Daley [facility] CPT-58112 Level 3 Est. Patient 09:21:24 CDT Piotr Daley [facility] CPT-45418 Level 3 Est. Patient 09:21:11 CDT Piotr Daley [facility] CPT-80184 Level 3 Est. Patient 11:16:29 YARDAGE TUFTING MACHINE OPERATOR Piotr Daley [facility] CPT-15985 Level 3 Est. Patient 18:40:19 YARDAGE TUFTING MACHINE OPERATOR Piotr Daley [facility] CPT-55332 Level 3 Est. Patient 19:30:50 CDT Piotr Daley [facility] CPT-75533 Level 3 Est. Patient 22:06:44 CDT Katrina Rinaldi MD [facility] CPT-34084 Level 3 Est. Patient 14:20:00 CDT Piotr Daley [facility] CPT-65307 Level 3 Est. Patient 14:15:22 YARDAGE TUFTING MACHINE OPERATOR Piotr Daley [facility] CPT-81287 Level 3 Est. Patient 20:19:57 YARDAGE TUFTING MACHINE OPERATOR Piotr Daley [facility] CPT-60764 Level 3 Est. Patient 16:44:32 CDT Piotr Daley [facility] CPT-40489 Level 3 Est. Patient 08:48:46 YARDAGE TUFTING MACHINE OPERATOR Piotr Daley [facility] CPT-63284 Level 3 Est. Patient 21:01:21 CDT Piotr Daley [facility] Procedures Code Procedure Name Date Entry Date Standard Description CPT-12866 BMP - LAB USE ONLY 17:19:11 YARDAGE TUFTING MACHINE OPERATOR CPT-28714 PT/INR - LAB USE ONLY 17:19:10 YARDAGE TUFTING MACHINE OPERATOR CPT-38451 Venipuncture Draw Fee 17:19:10 YARDAGE TUFTING MACHINE OPERATOR CPT-00404 PT/INR - LAB USE ONLY 08:12:25 YARDAGE TUFTING MACHINE OPERATOR CPT-64452 Venipuncture Draw Fee 08:12:24 YARDAGE TUFTING MACHINE OPERATOR CPT-73902 Venipuncture Draw Fee 11:31:07 YARDAGE TUFTING MACHINE OPERATOR CPT-08528 TPSA - LAB USE ONLY 11:31:07 YARDAGE TUFTING MACHINE OPERATOR CPT-40904 PT/INR - LAB USE ONLY 11:31:07 YARDAGE TUFTING MACHINE OPERATOR CPT-G0439 Subsequent Annual Wellness Exam 09:59:29 YARDAGE TUFTING MACHINE OPERATOR CPT-93905 Creatinine - LAB USE ONLY 14:37:55 YARDAGE TUFTING MACHINE OPERATOR CPT-15381 PT/INR - LAB USE ONLY 14:37:55 YARDAGE TUFTING MACHINE OPERATOR CPT-85301 Venipuncture Draw Fee 14:37:55 YARDAGE TUFTING MACHINE OPERATOR CPT-94896 LS spine comp w obliques - XRAY USE ONLY 12:59:25 YARDAGE TUFTING MACHINE OPERATOR CPT-25908 PT/INR - LAB USE ONLY 13:49:20 CDT CPT-96168 Venipuncture Draw Fee 13:49:19 CDT CPT-30521 PT/INR - LAB USE ONLY 15:48:49 CDT CPT-21063 Venipuncture Draw Fee 15:48:49 CDT CPT-15433 Venipuncture Draw Fee 11:31:59 CDT CPT-68169 PT/INR - LAB USE ONLY 11:31:59 CDT CPT-70580 Venipuncture Draw Fee 13:29:15 CDT CPT-95807 Thoracolumbar AP/Lat 15:19:19 YARDAGE TUFTING MACHINE OPERATOR CPT-G0438 Initial Annual Wellness Exam 12:18:54 YARDAGE TUFTING MACHINE OPERATOR CPT-92990 Knee 3V 09:57:38 CDT CPT-OV Office Visit 15:45:01 YARDAGE TUFTING MACHINE OPERATOR CPT-29103 Abd compl w upright 17:10:25 CDT
--- OUTSIDE RECORDS SUMMARY | 2018-07-18 08:35 | XMS REPORT | Clinical Summary ---
Author Author Admin, [employer] Organization [employer] Address Unknown Phone Unavailable Allergies, Adverse Reactions, [...] neoplasm of prostate V10.46 Active Alina Meyers ANIMAL SURGEON Personal history of malignant neoplasm of prostate [...] THROMBOPHLEBITIS, LEG, 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 Inactive Sirisha Chen SCRAP METAL BURNER Seborrheic keratosis ICD-702.19 Inactive Sirisha Chen SCRAP METAL BURNER Bronchitis-Acute ICD-466.0 Inactive Piotr Daley DO Leg pain, right ICD-729.5 Inactive Sirisha Chen SCRAP METAL BURNER Right leg pain ICD-729.5 Inactive Sirisha Chen SCRAP METAL BURNER Bronchitis-Acute ICD-466.0 Inactive Sirisha Chen SCRAP METAL BURNER Knee pain, left ICD-719.46 Inactive Sirisha Chen SCRAP METAL BURNER Actinic keratoses ICD-702.0 Inactive Sirisha Chen SCRAP METAL BURNER Back pain, thoracic region, left ICD-724.1 Inactive [...] as needed for muscle spasm/pain CYCLOBENZAPRINE HCL 28163351779 Active Piotr Daley DO Active PREDNISONE 20 MG ORAL TABLET two tabs by mouth today, then one tab by mouth days two and three PREDNISONE 68609466812 Active Piotr Daley DO Active ZITHROMAX 250 MG ORAL TABLET Take two (2 ) tablets day one, then one (1) tablet a day for four (4) more days AZITHROMYCIN 57261674245 Active Piotr Daley DO Active PROAIR HFA 108 (90 BASE) MCG/ACT INHALATION AEROSOL SOLUTION 1-2 puffs four times a day as needed ALBUTEROL SULFATE 87439381951 No Longer Active Emelyn Norris Active DOXYCYCLINE HYCLATE 100 MG ORAL CAPSULE 1 cap by mouth BID x10 days DOXYCYCLINE HYCLATE 85808636508 No Longer Active Nella Harris APRN Active WARFARIN SODIUM 5 MG ORAL TABLET 1 tablet daily M-S, 1/2 tab on Heart WARFARIN SODIUM 23209879618 Active Piotr Daley DO Active PREDNISONE 20 MG ORAL TABLET 2 tabs daily for 3 days, 1 tab daily for 3 days, 1/2 tab daily for 2 days PREDNISONE 20890836789 No Longer Active Matthew Rangel MD Active TRAMADOL HCL 50 MG ORAL TABLET 1 po tid with ES Tylenol TRAMADOL HCL 62361645677 No Longer Active Matthew Rangel MD Active GABAPENTIN 300 MG ORAL CAPSULE 1 po q hs for nerve pain GABAPENTIN 98402476000 No Longer Active Matthew Rangel MD Active PREDNISONE 20 MG ORAL TABLET 2 tablets today, then 1 tablet days 2 through 4 PREDNISONE 47593317715 No Longer Active Piotr Daley DO Active AZITHROMYCIN 250 MG ORAL TABLET 2 po qd x 1 day, then 1 po qd x 4 days 07/12 AZITHROMYCIN 50260891018 No Longer Active Piotr Daley DO Active IBUPROFEN 800 MG ORAL TABLET 1 tab every 8 hours as needed 07/12 IBUPROFEN 44678657934 No Longer Active Piotr Daley DO Active LOMOTIL 2.5-0.025 MG ORAL TABLET 1 to 2 four times a day as needed for diarrhea DIPHENOXYLATE-ATROPINE 12240656091 No Longer Active Piotr Daley DO Active WARFARIN SODIUM 4 MG ORAL TABLET 1 tab every evening WARFARIN SODIUM 05892402695 No Longer Active Piotr Daley DO Active PREDNISONE 20 MG ORAL TABLET 1 tablet twice daily for 2 days, then 1 tablet once daily for 2 days PREDNISONE 72977839114 No Longer Active Piotr Daley DO Active PROMETHAZINE HCL 25 MG ORAL TABLET 1 four times a day as needed for nausea/ vomiting PROMETHAZINE HCL 74333246854 No Longer Active Piotr Daley DO Active TUSSIONEX PENNKINETIC ER 10-8 MG/5ML ORAL SUSPENSION EXTENDED RELEASE 5ml po q12hr PRN Cough HYDROCOD POLST-CHLORPHEN POLST 03496992183 No Longer Active Piotr Daley DO Active AZITHROMYCIN 250 MG ORAL TABLET 2 po qd x 1 day, then 1 po qd x 4 days 10/13 AZITHROMYCIN 38718521526 No Longer Active Piotr Daley DO Active AZITHROMYCIN 250 MG ORAL TABLET 2 po qd x 1 day, then 1 po qd x 4 days 05/07 AZITHROMYCIN 80682605189 No Longer Active Piotr Daley DO Active LISINOPRIL-HYDROCHLOROTHIAZIDE 10-12.5 MG ORAL TABLET 1 tab by mouth daily LISINOPRIL-HYDROCHLOROTHIAZIDE 28127843456 Active Piotr Daley DO Active LISINOPRIL 10 MG ORAL TABLET 1/2-1 tab po every other day LISINOPRIL 24520259150 No Longer Active Piotr Daley DO Active VENTOLIN HFA 108 (90 Base) MCG/ACT INHALATION AEROSOL SOLUTION 2 puffs four times a day PRN cough ALBUTEROL SULFATE 60761274510 No Longer Active Piotr Daley DO Active NYSTATIN-TRIAMCINOLONE 387080-1.1 UNIT/GM-% EXTERNAL CREAM Apply to area BID NYSTATIN-TRIAMCINOLONE 09191062536 No Longer Active Alena Chavira SCRAP METAL BURNER Active PHISOHEX 3 % LIQD Use Directed HEXACHLOROPHENE 01137376153 No Longer Active Sandra Brad Active AZITHROMYCIN 250 MG ORAL TABLET 2 po qd x 1 day, then 1 po qd x 4 days 10/21 AZITHROMYCIN 74247385715 No Longer Active Katrina Rinaldi MD PhD Active AZITHROMYCIN 250 MG ORAL TABLET 2 po qd x 1 day, then 1 po qd x 4 days 10/16 AZITHROMYCIN 24431730554 No Longer Active Piotr Daley DO Active AZITHROMYCIN 500 MG INTRAVENOUS SOLUTION RECONSTITUTED 1 po q day AZITHROMYCIN 17267718399 No Longer Active Piotr Daley DO Active NYSTATIN-TRIAMCINOLONE 541570-0.1 UNIT/GM-% EXTERNAL CREAM apply bid NYSTATIN-TRIAMCINOLONE 32876702620 No Longer Active Piotr Daley DO Active IBUPROFEN 800 MG ORAL TABLET 1 po q 8 hours prn pain sparinly IBUPROFEN 94910140399 No Longer Active Piotr Daley DO Active VITAMIN D3 5000 UNIT ORAL CAPSULE 1 po daily CHOLECALCIFEROL 25315208393 Active Piotr Daley DO Active IBUPROFEN 800 MG ORAL TABLET 1 po q 8 hours prn pain sparinly IBUPROFEN 800 MG ORAL TABLET 878805 IBUPROFEN Inactive NYSTATIN-TRIAMCINOLONE 796510-3.1 UNIT/GM-% EXTERNAL CREAM apply bid NYSTATIN-TRIAMCINOLONE 900342-5.1 UNIT/GM-% EXTERNAL CREAM 1384219 NYSTATIN-TRIAMCINOLONE Inactive AZITHROMYCIN 500 MG INTRAVENOUS SOLUTION RECONSTITUTED 1 po q day AZITHROMYCIN 500 MG INTRAVENOUS SOLUTION RECONSTITUTED 01796591058 AZITHROMYCIN Inactive VENTOLIN HFA 108 (90 Base) MCG/ACT INHALATION AEROSOL SOLUTION 2 puffs four times a day PRN cough VENTOLIN HFA 108 (90 Base) MCG/ ACT INHALATION AEROSOL SOLUTION ALBUTEROL SULFATE Inactive LISINOPRIL 10 MG ORAL TABLET 1/2-1 tab po every other day LISINOPRIL 10 MG ORAL TABLET 444028 LISINOPRIL Inactive TUSSIONEX PENNKINETIC ER 10-8 MG/5ML ORAL SUSPENSION EXTENDED RELEASE 5ml po q12hr PRN Cough TUSSIONEX PENNKINETIC ER 10-8 MG/5ML ORAL SUSPENSION EXTENDED RELEASE HYDROCOD POLST-CHLORPHEN POLST Inactive PROMETHAZINE HCL 25 MG ORAL TABLET 1 four times a day as needed for nausea/ vomiting PROMETHAZINE HCL 25 MG ORAL TABLET 382923 PROMETHAZINE HCL Inactive PREDNISONE 20 MG ORAL TABLET 1 tablet twice daily for 2 days, then 1 tablet once daily for 2 days PREDNISONE 20 MG ORAL TABLET 131262 PREDNISONE Inactive WARFARIN SODIUM 4 MG ORAL TABLET 1 tab every evening WARFARIN SODIUM 4 MG ORAL TABLET 635788 WARFARIN SODIUM Inactive LOMOTIL 2.5-0.025 MG ORAL TABLET 1 to 2 four times a day as needed for diarrhea LOMOTIL 2.5-0.025 MG ORAL TABLET 3349168 DIPHENOXYLATE-ATROPINE Inactive IBUPROFEN 800 MG ORAL TABLET 1 tab every 8 hours as needed 07/12 IBUPROFEN 800 MG ORAL TABLET 434968 IBUPROFEN Inactive PREDNISONE 20 MG ORAL TABLET 2 tablets today, then 1 tablet days 2 through 4 PREDNISONE 20 MG ORAL TABLET 389789 PREDNISONE Inactive GABAPENTIN 300 MG ORAL CAPSULE 1 po q hs for nerve pain GABAPENTIN 300 MG ORAL CAPSULE 219040 GABAPENTIN Inactive TRAMADOL HCL 50 MG ORAL TABLET 1 po tid with ES Tylenol TRAMADOL HCL 50 MG ORAL TABLET 129916 TRAMADOL HCL Inactive PROAIR HFA 108 (90 BASE) MCG/ACT INHALATION AEROSOL SOLUTION 1-2 puffs four times a day as needed PROAIR HFA 108 (90 BASE) MCG/ACT INHALATION AEROSOL SOLUTION ALBUTEROL SULFATE Inactive AZITHROMYCIN 250 MG ORAL TABLET 2 po qd x 1 day, then 1 po qd x 4 days 10/16 AZITHROMYCIN 250 MG ORAL TABLET 980548 AZITHROMYCIN Inactive AZITHROMYCIN 250 MG ORAL TABLET 2 po qd x 1 day, then 1 po qd x 4 days 10/21 AZITHROMYCIN 250 MG ORAL TABLET 302137 AZITHROMYCIN Inactive NYSTATIN-TRIAMCINOLONE 787103-6.1 UNIT/GM-% EXTERNAL CREAM Apply to area BID NYSTATIN-TRIAMCINOLONE 371713-1.1 UNIT/GM-% EXTERNAL CREAM 3576353 NYSTATIN-TRIAMCINOLONE Inactive AZITHROMYCIN 250 MG ORAL TABLET 2 po qd x 1 day, then 1 po qd x 4 days 05/07 AZITHROMYCIN 250 MG ORAL TABLET 754762 AZITHROMYCIN Inactive AZITHROMYCIN 250 MG ORAL TABLET 2 po qd x 1 day, then 1 po qd x 4 days 10/13 AZITHROMYCIN 250 MG ORAL TABLET 551459 AZITHROMYCIN Inactive AZITHROMYCIN 250 MG ORAL TABLET 2 po qd x 1 day, then 1 po qd x 4 days 07/12 AZITHROMYCIN 250 MG ORAL TABLET 821950 AZITHROMYCIN Inactive PREDNISONE 20 MG ORAL TABLET 2 tabs daily for 3 days, 1 tab daily for 3 days, 1/2 tab daily for 2 days PREDNISONE 20 MG ORAL TABLET 479072 PREDNISONE Inactive DOXYCYCLINE HYCLATE 100 MG ORAL CAPSULE 1 cap by mouth BID x10 days DOXYCYCLINE HYCLATE 100 MG ORAL CAPSULE 1087129 DOXYCYCLINE HYCLATE Inactive Advance Directives Directive Description [...] Panel - Chemistry sodium, serum 141 mmol/L 653-891 6642/01/24 potassium, serum 4.3 mmol/L 3.5-5.2 chloride, serum [...] % 11.0-15.0 platelet count 172 THOUSAND/UL 10*3/mm3 954-447 2452/04/12 mean platelet volume 8.6 fL 7.5-12.5 Lab Report: Prothrombin Time - Coagulation prothrombin time (patient) 27.8 SECS s 11.1-13.4 international normalized ratio (INR) 4.2 1.0-3.5 Lab Report: Prothrombin Time Hemochron - Coagulation prothrombin time (patient) 33.0 SECS s 18.9-24.9 Encounters Code Encounter Date Provider Facility CPT-58170 Level 3 Est. Patient 15:56:17 DINKEY ENGINE OPERATOR Piotr Daley DO [facility] CPT-96702 Level 3 Est. Patient 10:34:54 DINKEY ENGINE OPERATOR Piotr Daley DO [facility] CPT-71337 Level 3 Est. Patient 17:10:19 MALACHI Harris APRN [facility] CPT-08008 Level 3 Est. Patient 10:48:17 DINKEY ENGINE OPERATOR Matthew Rangel MD [facility] CPT-15570 Level 4 Est. Patient 17:15:07 DINKEY ENGINE OPERATOR Piotr Daely [facility] CPT-32176 Level 3 Est. Patient 12:46:13 DINKEY ENGINE OPERATOR Piotr Daley [facility] CPT-02084 Level 3 Est. Patient 15:14:31 DINKEY ENGINE OPERATOR Piotr Daley [facility] CPT-33433 Level 3 Est. Patient 09:20:13 DINKEY ENGINE OPERATOR Piotr Daley [facility] CPT-38258 Level 3 Est. Patient 09:49:40 CDT Piotr Daley [facility] CPT-44960 Level 3 Est. Patient 16:28:11 CDT Piotr Daley [facility] CPT-67265 Level 3 Est. Patient 12:41:58 DINKEY ENGINE OPERATOR Piotr Daley [facility] CPT-45400 Level 3 Est. Patient 09:21:24 CDT Piotr Daley [facility] CPT-63340 Level 3 Est. Patient 09:21:11 CDT Piotr Daley [facility] CPT-93572 Level 3 Est. Patient 11:16:29 DINKEY ENGINE OPERATOR Piotr Daley [facility] CPT-78408 Level 3 Est. Patient 18:40:19 DINKEY ENGINE OPERATOR Piotr Daley [facility] CPT-49619 Level 3 Est. Patient 19:30:50 CDT Piotr Daley [facility] CPT-15709 Level 3 Est. Patient 22:06:44 CDT Katrina Rinaldi MD PhD [facility] [place]-96407 Level 3 Est. Patient 14:20:00 CDT Piotr Daley [facility] CPT-24636 Level 3 Est. Patient 14:15:22 DINKEY ENGINE OPERATOR Piotr Daley [facility] CPT-58225 Level 3 Est. Patient 20:19:57 DINKEY ENGINE OPERATOR Piotr Daley [facility] CPT-76680 Level 3 Est. Patient 16:44:32 CDT Piotr Daley [facility] CPT-68857 Level 3 Est. Patient 08:48:46 DINKEY ENGINE OPERATOR Piotr Daley [facility] CPT-63567 Level 3 Est. Patient 21:01:21 CDT Piotr Daley [facility] Procedures Code Procedure Name Date Entry Date Standard Description CPT-G0439 Subsequent Annual Wellness Exam 10:34:52 [facility] CPT-74039 BMP - LAB USE ONLY 17:19:11 [facility] CPT-05618 PT/INR - LAB USE ONLY 17:19:10 [facility] CPT-60466 Venipuncture Draw Fee 17:19:10 [facility] CPT-97692 PT/INR - LAB USE ONLY 08:12:25 DINKEY ENGINE OPERATOR CPT-57129 Venipuncture Draw Fee 08:12:24 [facility] CPT-84425 Venipuncture Draw Fee 11:31:07 DINKEY ENGINE OPERATOR CPT-01159 TPSA - LAB USE ONLY 11:31:07 DINKEY ENGINE OPERATOR CPT-46163 PT/INR - LAB USE ONLY 11:31:07 [facility] CPT-G0439 Subsequent Annual Wellness Exam 09:59:29 DINKEY ENGINE OPERATOR CPT-22090 Creatinine - LAB USE ONLY 14:37:55 DINKEY ENGINE OPERATOR CPT-09747 PT/INR - LAB USE ONLY 14:37:55 DINKEY ENGINE OPERATOR CPT-37606 Venipuncture Draw Fee 14:37:55 DINKEY ENGINE OPERATOR CPT-84010 LS spine comp w obliques - XRAY USE ONLY 12:59:25 DINKEY ENGINE OPERATOR CPT-10858 PT/INR - LAB USE ONLY 13:49:20 CDT CPT-62175 Venipuncture Draw Fee 13:49:19 CDT CPT-79792 PT/INR - LAB USE ONLY 15:48:49 CDT CPT-85037 Venipuncture Draw Fee 15:48:49 CDT CPT-03134 Venipuncture Draw Fee 11:31:59 CDT CPT-39213 PT/INR - LAB USE ONLY 11:31:59 CDT CPT-92664 Venipuncture Draw Fee 13:29:15 CDT CPT-07245 Thoracolumbar AP/Lat 15:19:19 DINKEY ENGINE OPERATOR CPT-G0438 Initial Annual Wellness Exam 12:18:54 DINKEY ENGINE OPERATOR CPT-24566 Knee 3V 09:57:38 CDT CPT-OV Office Visit 15:45:01 DINKEY ENGINE OPERATOR CPT-96206 Abd compl w upright 17:10:25 CDT
--- OUTSIDE RECORDS SUMMARY | 2018-07-18 08:36 | XMS REPORT | Clinical Summary ---
Author Author Admin, [employer] Organization [employer] Address Unknown Phone Unavailable Allergies, Adverse Reactions, [...] neoplasm of prostate V10.46 Active Alina Meyers GOLD LAYER Personal history of malignant neoplasm of prostate Coronary artery disease 414.00 Active Alina Meyers [employer]AYER Coronary atherosclerosis of unspecified type of vessel, [...] neuropathy Insect bite 919.4 Active Nella Harris GOLD LAYER Insect bite, nonvenomous, of other, multiple, and unspecified sites, without mention of infection Pruritus 698.9 Active Nella Harris GOLD LAYER Unspecified pruritic disorder Wellness exam V70.0 Active [...] times a day as needed ALBUTEROL SULFATE 37820208396 No Longer Active Emelyn Norris Active DOXYCYCLINE HYCLATE 100 MG ORAL CAPSULE 1 cap by mouth BID x10 days DOXYCYCLINE HYCLATE 88502876084 No Longer Active Nella Harris APRN Active WARFARIN SODIUM 5 MG ORAL TABLET 1 tablet daily M-S, 1/2 tab on Heart WARFARIN SODIUM 10759305816 Active Piotr Daley DO Active PREDNISONE 20 MG ORAL TABLET 2 tabs daily for 3 days, 1 tab daily for 3 days, 1/2 tab daily for 2 days PREDNISONE 27162590286 No Longer Active Matthew Rangel MD Active TRAMADOL HCL 50 MG ORAL TABLET 1 po tid with ES Tylenol TRAMADOL HCL 84725072522 No Longer Active Matthew Rangel MD Active GABAPENTIN 300 MG ORAL CAPSULE 1 po q hs for nerve pain GABAPENTIN 42933162704 No Longer Active Matthew Rangel MD Active PREDNISONE 20 MG ORAL TABLET 2 tablets today, then 1 tablet days 2 through 4 PREDNISONE 57773926911 No Longer Active Piotr Daley DO Active AZITHROMYCIN 250 MG ORAL TABLET 2 po qd x 1 day, then 1 po qd x 4 days 07/12 AZITHROMYCIN 86406854341 No Longer Active Piotr Daley DO Active IBUPROFEN 800 MG ORAL TABLET 1 tab every 8 hours as needed 07/12 IBUPROFEN 88913904245 No Longer Active Piotr Daley DO Active LOMOTIL 2.5-0.025 MG ORAL TABLET 1 to 2 four times a day as needed for diarrhea DIPHENOXYLATE-ATROPINE 00340064897 No Longer Active Piotr Daley DO Active WARFARIN SODIUM 4 MG ORAL TABLET 1 tab every evening WARFARIN SODIUM 04397893360 No Longer Active Piotr Daley DO Active PREDNISONE 20 MG ORAL TABLET 1 tablet twice daily for 2 days, then 1 tablet once daily for 2 days PREDNISONE 78340758924 No Longer Active Piotr Daley DO Active PROMETHAZINE HCL 25 MG ORAL TABLET 1 four times a day as needed for nausea/ vomiting PROMETHAZINE HCL 73641030318 No Longer Active Piotr Daley DO Active TUSSIONEX PENNKINETIC ER 10-8 MG/5ML ORAL SUSPENSION EXTENDED RELEASE 5ml po q12hr PRN Cough HYDROCOD POLST-CHLORPHEN POLST 70880453573 No Longer Active Piotr Daley DO Active AZITHROMYCIN 250 MG ORAL TABLET 2 po qd x 1 day, then 1 po qd x 4 days 10/13 AZITHROMYCIN 25148332413 No Longer Active Piotr Daley DO Active AZITHROMYCIN 250 MG ORAL TABLET 2 po qd x 1 day, then 1 po qd x 4 days 05/07 AZITHROMYCIN 41965915204 No Longer Active Piotr Daley DO Active LISINOPRIL-HYDROCHLOROTHIAZIDE 10-12.5 MG ORAL TABLET 1 tab by mouth daily LISINOPRIL-HYDROCHLOROTHIAZIDE 95532288544 Active Piotr Daley DO Active LISINOPRIL 10 MG ORAL TABLET 1/2-1 tab po every other day LISINOPRIL 65901226529 No Longer Active Piotr Daley DO Active VENTOLIN HFA 108 (90 Base) MCG/ACT INHALATION AEROSOL SOLUTION 2 puffs four times a day PRN cough ALBUTEROL SULFATE 38700110890 No Longer Active Piotr Daley DO Active NYSTATIN-TRIAMCINOLONE 835971-9.1 UNIT/GM-% EXTERNAL CREAM Apply to area BID NYSTATIN-TRIAMCINOLONE 00275206299 No Longer Active Alena Chavira FLAT GRINDER OPERATOR Active PHISOHEX 3 % LIQD Use Directed HEXACHLOROPHENE 86280362125 No Longer Active Sandra [place] Active AZITHROMYCIN 250 MG ORAL TABLET 2 po qd x 1 day, then 1 po qd x 4 days 10/21 AZITHROMYCIN 12659891269 No Longer Active Katrina Rinaldi MD PhD Active AZITHROMYCIN 250 MG ORAL TABLET 2 po qd x 1 day, then 1 po qd x 4 days 10/16 AZITHROMYCIN 94567627861 No Longer Active Piotr Daley DO Active AZITHROMYCIN 500 MG INTRAVENOUS SOLUTION RECONSTITUTED 1 po q day AZITHROMYCIN 07284353138 No Longer Active Piotr Daley DO Active NYSTATIN-TRIAMCINOLONE 014783-2.1 UNIT/GM-% EXTERNAL CREAM apply bid NYSTATIN-TRIAMCINOLONE 26188154123 No Longer Active Piotr Daley DO Active IBUPROFEN 800 MG ORAL TABLET 1 po q 8 hours prn pain sparinly IBUPROFEN 44165877994 No Longer Active Piotr Daley DO Active VITAMIN D3 5000 UNIT ORAL CAPSULE 1 po daily CHOLECALCIFEROL 15517526670 Active Piotr Daley DO Active IBUPROFEN 800 MG ORAL TABLET 1 po q 8 hours prn pain sparinly IBUPROFEN 800 MG ORAL TABLET 370270 IBUPROFEN Inactive NYSTATIN-TRIAMCINOLONE 647486-3.1 UNIT/GM-% EXTERNAL CREAM apply bid NYSTATIN-TRIAMCINOLONE 574858-5.1 UNIT/GM-% EXTERNAL CREAM 1627519 NYSTATIN-TRIAMCINOLONE Inactive AZITHROMYCIN 500 MG INTRAVENOUS SOLUTION RECONSTITUTED 1 po q day AZITHROMYCIN 500 MG INTRAVENOUS SOLUTION RECONSTITUTED 64680475855 AZITHROMYCIN Inactive VENTOLIN HFA 108 (90 Base) MCG/ACT INHALATION AEROSOL SOLUTION 2 puffs four times a day PRN cough VENTOLIN HFA 108 (90 Base) MCG/ ACT INHALATION AEROSOL SOLUTION ALBUTEROL SULFATE Inactive LISINOPRIL 10 MG ORAL TABLET 1/2-1 tab po every other day LISINOPRIL 10 MG ORAL TABLET 622211 LISINOPRIL Inactive TUSSIONEX PENNKINETIC ER 10-8 MG/5ML ORAL SUSPENSION EXTENDED RELEASE 5ml po q12hr PRN Cough TUSSIONEX PENNKINETIC ER 10-8 MG/5ML ORAL SUSPENSION EXTENDED RELEASE HYDROCOD POLST-CHLORPHEN POLST Inactive PROMETHAZINE HCL 25 MG ORAL TABLET 1 four times a day as needed for nausea/ vomiting PROMETHAZINE HCL 25 MG ORAL TABLET 888544 PROMETHAZINE HCL Inactive PREDNISONE 20 MG ORAL TABLET 1 tablet twice daily for 2 days, then 1 tablet once daily for 2 days PREDNISONE 20 MG ORAL TABLET 108209 PREDNISONE Inactive WARFARIN SODIUM 4 MG ORAL TABLET 1 tab every evening WARFARIN SODIUM 4 MG ORAL TABLET 403263 WARFARIN SODIUM Inactive LOMOTIL 2.5-0.025 MG ORAL TABLET 1 to 2 four times a day as needed for diarrhea LOMOTIL 2.5-0.025 MG ORAL TABLET 4575653 DIPHENOXYLATE-ATROPINE Inactive IBUPROFEN 800 MG ORAL TABLET 1 tab every 8 hours as needed 07/12 IBUPROFEN 800 MG ORAL TABLET 749145 IBUPROFEN Inactive PREDNISONE 20 MG ORAL TABLET 2 tablets today, then 1 tablet days 2 through 4 PREDNISONE 20 MG ORAL TABLET 007090 PREDNISONE Inactive GABAPENTIN 300 MG ORAL CAPSULE 1 po q hs for nerve pain GABAPENTIN 300 MG ORAL CAPSULE 406584 GABAPENTIN Inactive TRAMADOL HCL 50 MG ORAL TABLET 1 po tid with ES Tylenol TRAMADOL HCL 50 MG ORAL TABLET 244124 TRAMADOL HCL Inactive PROAIR HFA 108 (90 BASE) MCG/ACT INHALATION AEROSOL SOLUTION 1-2 puffs four times a day as needed PROAIR HFA 108 (90 BASE) MCG/ACT INHALATION AEROSOL SOLUTION ALBUTEROL SULFATE Inactive AZITHROMYCIN 250 MG ORAL TABLET 2 po qd x 1 day, then 1 po qd x 4 days 10/16 AZITHROMYCIN 250 MG ORAL TABLET 431475 AZITHROMYCIN Inactive AZITHROMYCIN 250 MG ORAL TABLET 2 po qd x 1 day, then 1 po qd x 4 days 10/21 AZITHROMYCIN 250 MG ORAL TABLET 221540 AZITHROMYCIN Inactive NYSTATIN-TRIAMCINOLONE 118876-4.1 UNIT/GM-% EXTERNAL CREAM Apply to area BID NYSTATIN-TRIAMCINOLONE 749111-1.1 UNIT/GM-% EXTERNAL CREAM 8988208 NYSTATIN-TRIAMCINOLONE Inactive AZITHROMYCIN 250 MG ORAL TABLET 2 po qd x 1 day, then 1 po qd x 4 days 05/07 AZITHROMYCIN 250 MG ORAL TABLET 007597 AZITHROMYCIN Inactive AZITHROMYCIN 250 MG ORAL TABLET 2 po qd x 1 day, then 1 po qd x 4 days 10/13 AZITHROMYCIN 250 MG ORAL TABLET 331665 AZITHROMYCIN Inactive AZITHROMYCIN 250 MG ORAL TABLET 2 po qd x 1 day, then 1 po qd x 4 days 07/12 AZITHROMYCIN 250 MG ORAL TABLET 867362 AZITHROMYCIN Inactive PREDNISONE 20 MG ORAL TABLET 2 tabs daily for 3 days, 1 tab daily for 3 days, 1/2 tab daily for 2 days PREDNISONE 20 MG ORAL TABLET 145679 PREDNISONE Inactive DOXYCYCLINE HYCLATE 100 MG ORAL CAPSULE 1 cap by mouth BID x10 days DOXYCYCLINE HYCLATE 100 MG ORAL CAPSULE 3681832 DOXYCYCLINE HYCLATE Inactive Advance Directives Directive Description [...] Panel - Chemistry sodium, serum 141 mmol/L 714-867 9769/01/24 potassium, serum 4.3 mmol/L 3.5-5.2 chloride, serum [...] % 11.0-15.0 platelet count 172 THOUSAND/UL 10*3/mm3 111-763 3014/04/12 mean platelet volume 8.6 fL 7.5-12.5 Lab [...] 18.9-24.9 Encounters Code Encounter Date Provider Facility CPT-84293 Level 3 Est. Patient 10:34:54 DEVELOPMENT TECHNOLOGIST Piotr Wilson Edi [facility] CPT-73929 Level 3 Est. Patient 17:10:19 CDT Nella Harris APRN [facility] CPT-00017 Level 3 Est. Patient 10:48:17 DEVELOPMENT TECHNOLOGIST Matthew Rangel MD [facility] CPT-35357 Level 4 Est. Patient 17:15:07 DEVELOPMENT TECHNOLOGIST Piotr Wilson Edi [facility] CPT-74237 Level 3 Est. Patient 12:46:13 DEVELOPMENT TECHNOLOGIST Piotr Wilson Edi [facility] CPT-61395 Level 3 Est. Patient 15:14:31 DEVELOPMENT TECHNOLOGIST Piotr Wilson Edi [facility] CPT-46110 Level 3 Est. Patient 09:20:13 DEVELOPMENT TECHNOLOGIST Piotr Wilson Edi [facility] CPT-73657 Level 3 Est. Patient 09:49:40 CDT Piotr Katie Daley [facility] CPT-75438 Level 3 Est. Patient 16:28:11 CDT Piotr Wilson Edi [facility] CPT-33025 Level 3 Est. Patient 12:41:58 DEVELOPMENT TECHNOLOGIST Piotr Daley [facility] CPT-32013 Level 3 Est. Patient 09:21:24 CDT Piotr Katie Daley [facility] CPT-08930 Level 3 Est. Patient 09:21:11 CDT Piotr Katie Daley [facility] CPT-68654 Level 3 Est. Patient 11:16:29 DEVELOPMENT TECHNOLOGIST Piotr Daley [facility] CPT-47754 Level 3 Est. Patient 18:40:19 DEVELOPMENT TECHNOLOGIST Piotr Daley [facility] CPT-06938 Level 3 Est. Patient 19:30:50 CDT Piotr Wilson Edi [facility] CPT-40590 Level 3 Est. Patient 22:06:44 CDT Katrina Rinaldi MD PhD [facility] CPT-94638 Level 3 Est. Patient 14:20:00 CDT Piotr Daley [facility] CPT-01624 Level 3 Est. Patient 14:15:22 DEVELOPMENT TECHNOLOGIST Piotr Daley [facility] CPT-31367 Level 3 Est. Patient 20:19:57 DEVELOPMENT TECHNOLOGIST Piotr Daley [facility] CPT-62627 Level 3 Est. Patient 16:44:32 CDT Piotr Daley [facility] CPT-72372 Level 3 Est. Patient 08:48:46 DEVELOPMENT TECHNOLOGIST Piotr Daley [facility] CPT-56116 Level 3 Est. Patient 21:01:21 CDT Piotr Daley [facility] Procedures Code Procedure Name Date Entry Date Standard Description CPT-G0439 Subsequent Annual Wellness Exam 10:34:52 [facility] CPT-55790 BMP - LAB USE ONLY 17:19:11 [facility] CPT-06321 PT/INR - LAB USE ONLY 17:19:10 [facility] CPT-16761 Venipuncture Draw Fee 17:19:10 DEVELOPMENT TECHNOLOGIST CPT-72927 PT/INR - LAB USE ONLY 08:12:25 [facility] CPT-04892 Venipuncture Draw Fee 08:12:24 DEVELOPMENT TECHNOLOGIST CPT-55473 Venipuncture Draw Fee 11:31:07 DEVELOPMENT TECHNOLOGIST CPT-06059 TPSA - LAB USE ONLY 11:31:07 DEVELOPMENT TECHNOLOGIST CPT-41777 PT/INR - LAB USE ONLY 11:31:07 [facility] CPT-G0439 Subsequent Annual Wellness Exam 09:59:29 DEVELOPMENT TECHNOLOGIST CPT-49995 Creatinine - LAB USE ONLY 14:37:55 DEVELOPMENT TECHNOLOGIST CPT-53674 PT/INR - LAB USE ONLY 14:37:55 DEVELOPMENT TECHNOLOGIST CPT-81248 Venipuncture Draw Fee 14:37:55 DEVELOPMENT TECHNOLOGIST CPT-14801 LS spine comp w obliques - XRAY USE ONLY 12:59:25 DEVELOPMENT TECHNOLOGIST CPT-30541 PT/INR - LAB USE ONLY 13:49:20 CDT CPT-84110 Venipuncture Draw Fee 13:49:19 CDT CPT-09891 PT/INR - LAB USE ONLY 15:48:49 CDT CPT-77330 Venipuncture Draw Fee 15:48:49 CDT CPT-98401 Venipuncture Draw Fee 11:31:59 CDT CPT-19700 PT/INR - LAB USE ONLY 11:31:59 CDT CPT-29815 Venipuncture Draw Fee 13:29:15 CDT CPT-48667 Thoracolumbar AP/Lat 15:19:19 DEVELOPMENT TECHNOLOGIST CPT-G0438 Initial Annual Wellness Exam 12:18:54 DEVELOPMENT TECHNOLOGIST CPT-71964 Knee 3V 09:57:38 CDT CPT-OV Office Visit 15:45:01 DEVELOPMENT TECHNOLOGIST CPT-88740 Abd compl w upright 17:10:25 CDT
--- OUTSIDE RECORDS SUMMARY | 2018-07-18 08:37 | XMS REPORT | Clinical Summary ---
Author Author Admin, [employer] Organization [email or web address] Address Unknown Phone Unavailable Allergies, Adverse Reactions, [...] of prostate V10.46 Active Alina Meyers TELEPHONE SALES AGENT Personal history of malignant neoplasm of prostate Coronary artery disease 414.00 Active Alina Meyers APRN Coronary atherosclerosis of unspecified type of vessel, [place] or graft Back pain, thoracic [...] Knee pain, left ICD-719.46 Inactive Sirisha Chen MULTI CRAFT MAINTENANCE TECHNICIAN Actinic keratoses ICD-702.0 Inactive Sirisha Chen MULTI CRAFT MAINTENANCE TECHNICIAN Back pain, thoracic region, left ICD-724.1 Inactive Piotr Daley DO Thoracic back pain ICD-724.5 Inactive Sirisha Chen MULTI CRAFT MAINTENANCE TECHNICIAN Back pain lumbar ICD-724.2 Inactive Sirisha Chen MULTI CRAFT MAINTENANCE TECHNICIAN Insect bite ICD-919.4 Inactive Sirisha Chen MULTI CRAFT MAINTENANCE TECHNICIAN Pruritus ICD-698.9 Inactive Sirisha Chen MULTI CRAFT MAINTENANCE TECHNICIAN 04/09 Bronchitis-Acute ICD-466.0 Inactive Sirisha Chen MULTI CRAFT MAINTENANCE TECHNICIAN Dyspnea ICD-786.09 Inactive Sirisha Chen MULTI CRAFT MAINTENANCE TECHNICIAN 05/09 Medication List Medication Instructions Start Date Stop Date Generic Name NDC Status Provider Patient Instruction WARFARIN SODIUM 4 MG ORAL TABLET 1 tablet by mouth daily except 2mg on Saturday and Saturday WARFARIN SODIUM 23525937176 Active Anahy Loja Active MELOXICAM 15 MG ORAL TABLET 1 po q day for pain with food MELOXICAM 18469918208 Active Piotr Daley DO Active PREDNISONE 10 MG ORAL TABLET 1 tablet by mouth daily PREDNISONE 88426108569 No Longer Active Emelyn Norris Active TESSALON PERLES 100 MG ORAL CAPSULE 1-2 tablet by mouth 3 times daily 04/16 BENZONATATE 50631128447 No Longer Active Emelyn Norris Active PREDNISONE 20 MG ORAL TABLET two tabs by mouth today, then one tab by mouth days two and three PREDNISONE 39800306459 No Longer Active Piotr Daley DO Active CYCLOBENZAPRINE HCL 10 MG ORAL TABLET 1 tablet by mouth three times daily as needed for muscle spasm/pain CYCLOBENZAPRINE HCL 74828954094 Active Sirisha Chen LPN Active ZITHROMAX 250 MG ORAL TABLET Take two (2 ) tablets day one, then one (1) tablet a day for four (4) more days AZITHROMYCIN 70702347964 No Longer Active Piotr Daley DO Active PROAIR HFA 108 (90 BASE) MCG/ACT INHALATION AEROSOL SOLUTION 1-2 puffs four times a day as needed ALBUTEROL SULFATE 97339132293 No Longer Active Emelyn Norris Active DOXYCYCLINE HYCLATE 100 MG ORAL CAPSULE 1 cap by mouth BID x10 days DOXYCYCLINE HYCLATE 35683219033 No Longer Active Nella Harris APRN Active PREDNISONE 20 MG ORAL TABLET 2 tabs daily for 3 days, 1 tab daily for 3 days, 1/2 tab daily for 2 days PREDNISONE 57510824415 No Longer Active Matthew Rangel MD Active TRAMADOL HCL 50 MG ORAL TABLET 1 po tid with ES Tylenol TRAMADOL HCL 35916219793 No Longer Active Matthew Rangel MD Active GABAPENTIN 300 MG ORAL CAPSULE 1 po q hs for nerve pain GABAPENTIN 31019432659 No Longer Active Matthew Rangel MD Active PREDNISONE 20 MG ORAL TABLET 2 tablets today, then 1 tablet days 2 through 4 PREDNISONE 60253178825 No Longer Active Piotr Daley DO Active AZITHROMYCIN 250 MG ORAL TABLET 2 po qd x 1 day, then 1 po qd x 4 days 07/12 AZITHROMYCIN 86293651654 No Longer Active Piotr Daley DO Active IBUPROFEN 800 MG ORAL TABLET 1 tab every 8 hours as needed 07/12 IBUPROFEN 86230441850 No Longer Active Piotr Daley DO Active LOMOTIL 2.5-0.025 MG ORAL TABLET 1 to 2 four times a day as needed for diarrhea DIPHENOXYLATE-ATROPINE 51277400798 No Longer Active Piotr Daley DO Active WARFARIN SODIUM 4 MG ORAL TABLET 1 tab every evening WARFARIN SODIUM 26513840294 No Longer Active Piotr Daley DO Active PREDNISONE 20 MG ORAL TABLET 1 tablet twice daily for 2 days, then 1 tablet once daily for 2 days PREDNISONE 06911215521 No Longer Active Piotr Daley DO Active PROMETHAZINE HCL 25 MG ORAL TABLET 1 four times a day as needed for nausea/ vomiting PROMETHAZINE HCL 36573347760 No Longer Active Piotr Daley DO Active TUSSIONEX PENNKINETIC ER 10-8 MG/5ML ORAL SUSPENSION EXTENDED RELEASE 5ml po q12hr PRN Cough HYDROCOD POLST-CHLORPHEN POLST 36568895083 No Longer Active Piotr Daley DO Active AZITHROMYCIN 250 MG ORAL TABLET 2 po qd x 1 day, then 1 po qd x 4 days 10/13 AZITHROMYCIN 97997671385 No Longer Active Piotr Daley DO Active AZITHROMYCIN 250 MG ORAL TABLET 2 po qd x 1 day, then 1 po qd x 4 days 05/07 AZITHROMYCIN 61391172899 No Longer Active Piotr Daley DO Active LISINOPRIL-HYDROCHLOROTHIAZIDE 10-12.5 MG ORAL TABLET 1 tab by mouth daily LISINOPRIL-HYDROCHLOROTHIAZIDE 00724336001 Active Piotr Daley DO Active LISINOPRIL 10 MG ORAL TABLET 1/2-1 tab po every other day LISINOPRIL 71026630324 No Longer Active Piotr Daley DO Active VENTOLIN HFA 108 (90 Base) MCG/ACT INHALATION AEROSOL SOLUTION 2 puffs four times a day PRN cough ALBUTEROL SULFATE 99261352633 No Longer Active Piotr Daley DO Active NYSTATIN-TRIAMCINOLONE 098911-6.1 UNIT/GM-% EXTERNAL CREAM Apply to area BID NYSTATIN-TRIAMCINOLONE 71342526584 No Longer Active Alena Chavira MULTI CRAFT MAINTENANCE TECHNICIAN Active PHISOHEX 3 % LIQD Use Directed HEXACHLOROPHENE 97480418958 No Longer Active Sandra Lodi Active AZITHROMYCIN 250 MG ORAL TABLET 2 po qd x 1 day, then 1 po qd x 4 days 10/21 AZITHROMYCIN 19925219707 No Longer Active Katrina Rinaldi MD PhD Active AZITHROMYCIN 250 MG ORAL TABLET 2 po qd x 1 day, then 1 po qd x 4 days 10/16 AZITHROMYCIN 04873191041 No Longer Active Piotr Daley DO Active AZITHROMYCIN 500 MG INTRAVENOUS SOLUTION RECONSTITUTED 1 po q day AZITHROMYCIN 62124382386 No Longer Active Piotr Daley DO Active NYSTATIN-TRIAMCINOLONE 627758-5.1 UNIT/GM-% EXTERNAL CREAM apply bid NYSTATIN-TRIAMCINOLONE 91872136064 No Longer Active Piotr Daley DO Active IBUPROFEN 800 MG ORAL TABLET 1 po q 8 hours prn pain sparinly IBUPROFEN 81323294426 No Longer Active Piotr Daley DO Active VITAMIN D3 5000 UNIT ORAL CAPSULE 1 po daily CHOLECALCIFEROL 12180244887 Active Piotr Daley DO Active IBUPROFEN 800 MG ORAL TABLET 1 po q 8 hours prn pain sparinly IBUPROFEN 800 MG ORAL TABLET 356468 IBUPROFEN Inactive NYSTATIN-TRIAMCINOLONE 642231-4.1 UNIT/GM-% EXTERNAL CREAM apply bid NYSTATIN-TRIAMCINOLONE 297443-7.1 UNIT/GM-% EXTERNAL CREAM 0255962 NYSTATIN-TRIAMCINOLONE Inactive AZITHROMYCIN 500 MG INTRAVENOUS SOLUTION RECONSTITUTED 1 po q day AZITHROMYCIN 500 MG INTRAVENOUS SOLUTION RECONSTITUTED 82157397730 AZITHROMYCIN Inactive VENTOLIN HFA 108 (90 Base) MCG/ACT INHALATION AEROSOL SOLUTION 2 puffs four times a day PRN cough VENTOLIN HFA 108 (90 Base) MCG/ ACT INHALATION AEROSOL SOLUTION ALBUTEROL SULFATE Inactive LISINOPRIL 10 MG ORAL TABLET 1/2-1 tab po every other day LISINOPRIL 10 MG ORAL TABLET 841421 LISINOPRIL Inactive TUSSIONEX PENNKINETIC ER 10-8 MG/5ML ORAL SUSPENSION EXTENDED RELEASE 5ml po q12hr PRN Cough TUSSIONEX PENNKINETIC ER 10-8 MG/5ML ORAL SUSPENSION EXTENDED RELEASE HYDROCOD POLST-CHLORPHEN POLST Inactive PROMETHAZINE HCL 25 MG ORAL TABLET 1 four times a day as needed for nausea/ vomiting PROMETHAZINE HCL 25 MG ORAL TABLET 940754 PROMETHAZINE HCL Inactive PREDNISONE 20 MG ORAL TABLET 1 tablet twice daily for 2 days, then 1 tablet once daily for 2 days PREDNISONE 20 MG ORAL TABLET 686736 PREDNISONE Inactive WARFARIN SODIUM 4 MG ORAL TABLET 1 tab every evening WARFARIN SODIUM 4 MG ORAL TABLET 752303 WARFARIN SODIUM Inactive LOMOTIL 2.5-0.025 MG ORAL TABLET 1 to 2 four times a day as needed for diarrhea LOMOTIL 2.5-0.025 MG ORAL TABLET 1086840 DIPHENOXYLATE-ATROPINE Inactive IBUPROFEN 800 MG ORAL TABLET 1 tab every 8 hours as needed 07/12 IBUPROFEN 800 MG ORAL TABLET 816128 IBUPROFEN Inactive PREDNISONE 20 MG ORAL TABLET 2 tablets today, then 1 tablet days 2 through 4 PREDNISONE 20 MG ORAL TABLET 786724 PREDNISONE Inactive GABAPENTIN 300 MG ORAL CAPSULE 1 po q hs for nerve pain GABAPENTIN 300 MG ORAL CAPSULE 177987 GABAPENTIN Inactive TRAMADOL HCL 50 MG ORAL TABLET 1 po tid with ES Tylenol TRAMADOL HCL 50 MG ORAL TABLET 899140 TRAMADOL HCL Inactive PROAIR HFA 108 (90 BASE) MCG/ACT INHALATION AEROSOL SOLUTION 1-2 puffs four times a day as needed PROAIR HFA 108 (90 BASE) MCG/ACT INHALATION AEROSOL SOLUTION ALBUTEROL SULFATE Inactive PREDNISONE 20 MG ORAL TABLET two tabs by mouth today, then one tab by mouth days two and three PREDNISONE 20 MG ORAL TABLET 485001 PREDNISONE Inactive TESSALON PERLES 100 MG ORAL CAPSULE 1-2 tablet by mouth 3 times daily 04/16 TESSALON PERLES 100 MG ORAL CAPSULE 185917 BENZONATATE Inactive PREDNISONE 10 MG ORAL TABLET 1 tablet by mouth daily PREDNISONE 10 MG ORAL TABLET 494593 PREDNISONE Inactive AZITHROMYCIN 250 MG ORAL TABLET 2 po qd x 1 day, then 1 po qd x 4 days 10/16 AZITHROMYCIN 250 MG ORAL TABLET 842442 AZITHROMYCIN Inactive AZITHROMYCIN 250 MG ORAL TABLET 2 po qd x 1 day, then 1 po qd x 4 days 10/21 AZITHROMYCIN 250 MG ORAL TABLET 781859 AZITHROMYCIN Inactive NYSTATIN-TRIAMCINOLONE 406455-8.1 UNIT/GM-% EXTERNAL CREAM Apply to area BID NYSTATIN-TRIAMCINOLONE 611228-9.1 UNIT/GM-% EXTERNAL CREAM 0527970 NYSTATIN-TRIAMCINOLONE Inactive AZITHROMYCIN 250 MG ORAL TABLET 2 po qd x 1 day, then 1 po qd x 4 days 05/07 AZITHROMYCIN 250 MG ORAL TABLET 784586 AZITHROMYCIN Inactive AZITHROMYCIN 250 MG ORAL TABLET 2 po qd x 1 day, then 1 po qd x 4 days 10/13 AZITHROMYCIN 250 MG ORAL TABLET 693484 AZITHROMYCIN Inactive AZITHROMYCIN 250 MG ORAL TABLET 2 po qd x 1 day, then 1 po qd x 4 days 07/12 AZITHROMYCIN 250 MG ORAL TABLET 903101 AZITHROMYCIN Inactive PREDNISONE 20 MG ORAL TABLET 2 tabs daily for 3 days, 1 tab daily for 3 days, 1/2 tab daily for 2 days PREDNISONE 20 MG ORAL TABLET 292384 PREDNISONE Inactive DOXYCYCLINE HYCLATE 100 MG ORAL CAPSULE 1 cap by mouth BID x10 days DOXYCYCLINE HYCLATE 100 MG ORAL CAPSULE 2783613 DOXYCYCLINE HYCLATE Inactive ZITHROMAX 250 MG ORAL TABLET Take two (2 ) tablets day one, then one (1) tablet a day for four (4) more days ZITHROMAX 250 MG ORAL TABLET 812786 AZITHROMYCIN Inactive Advance Directives Directive Description Start [...] % 11.0-15.0 platelet count 172 THOUSAND/UL 10*3/mm3 586-783 5713/04/12 mean platelet volume 8.6 fL 7.5-12.5 mean corpuscular volume, RBC 83.9 fL 80.0-100.0 hematocrit, blood 43.0 % 38.5-50.0 hemoglobin, blood 14.4 g/dL 13.2-17.1 erythrocyte (RBC) count 5.13 MILLION/UL 10*6/mm3 4.20-5.80 leukocyte count, blood 5.4 THOUSAND/UL 10*3/mm3 3.8-10.8 Lab Report: Prothrombin Time Hemochron - Coagulation prothrombin time (patient) 33.0 SECS s 18.9-24.9 Encounters Code Encounter Date Provider Facility CPT-16542 Level 3 Est. Patient 15:59:25 TREATMENT PLANT OPERATOR Piotr Daley [facility] CPT-27028 Level 3 Est. Patient 12:33:59 TREATMENT PLANT OPERATOR Piotr Daley [facility] CPT-44743 Level 3 Est. Patient 15:56:17 TREATMENT PLANT OPERATOR Piotr Daley [facility] CPT-68772 Level 3 Est. Patient 10:34:54 TREATMENT PLANT OPERATOR Piotr Daley [facility] CPT-77001 Level 3 Est. Patient 17:10:19 CDT Nella Harris APRN [facility] CPT-13261 Level 3 Est. Patient 10:48:17 TREATMENT PLANT OPERATOR Matthew Rangel MD [facility] CPT-35832 Level 4 Est. Patient 17:15:07 TREATMENT PLANT OPERATOR Piotr Daley [facility] CPT-85215 Level 3 Est. Patient 12:46:13 TREATMENT PLANT OPERATOR Piotr Daley [facility] CPT-46683 Level 3 Est. Patient 15:14:31 TREATMENT PLANT OPERATOR Piotr Daley [facility] CPT-32709 Level 3 Est. Patient 09:20:13 TREATMENT PLANT OPERATOR Piotr Daley [facility] CPT-84643 Level 3 Est. Patient 09:49:40 CDT Piotr Daley [facility] CPT-56721 Level 3 Est. Patient 16:28:11 CDT Piotr Daley [facility] CPT-58480 Level 3 Est. Patient 12:41:58 TREATMENT PLANT OPERATOR Piotr Daley [facility] CPT-57243 Level 3 Est. Patient 09:21:24 CDT Piotr Daley [facility] CPT-32283 Level 3 Est. Patient 09:21:11 CDT Piotr Daley [facility] CPT-58569 Level 3 Est. Patient 11:16:29 TREATMENT PLANT OPERATOR Piotr Daley [facility] CPT-91688 Level 3 Est. Patient 18:40:19 TREATMENT PLANT OPERATOR Piotr Daley [facility] CPT-05295 Level 3 Est. Patient 19:30:50 CDT Piotr Daley [facility] CPT-16166 Level 3 Est. Patient 22:06:44 CDT Katrina Rinaldi MD [facility] CPT-87082 Level 3 Est. Patient 14:20:00 CDT Piotr Daley [facility] CPT-74704 Level 3 Est. Patient 14:15:22 TREATMENT PLANT OPERATOR Piotr Daley [facility] CPT-02858 Level 3 Est. Patient 20:19:57 TREATMENT PLANT OPERATOR Piotr Daley [facility] CPT-84287 Level 3 Est. Patient 16:44:32 CDT Piotr Daley [facility] CPT-69246 Level 3 Est. Patient 08:48:46 TREATMENT PLANT OPERATOR Piotr Daley [facility] CPT-81500 Level 3 Est. Patient 21:01:21 CDT Piotr Daley DO [facility] Procedures Code Procedure Name Date Entry Date Standard Description CPT-46672 Sacroiliac jt < 3V - XRAY USE ONLY 16:45:19 TREATMENT PLANT OPERATOR 05/09 CPT-39263 LS spine comp w obliques - XRAY USE ONLY 14:52:26 TREATMENT PLANT OPERATOR CPT-63348 Chest, 2 views 12:55:58 TREATMENT PLANT OPERATOR CPT-G0439 Subsequent Annual Wellness Exam 10:34:52 TREATMENT PLANT OPERATOR CPT-84957 BMP - LAB USE ONLY 17:19:11 TREATMENT PLANT OPERATOR CPT-23429 PT/INR - LAB USE ONLY 17:19:10 TREATMENT PLANT OPERATOR CPT-86703 Venipuncture Draw Fee 17:19:10 TREATMENT PLANT OPERATOR CPT-01565 PT/INR - LAB USE ONLY 08:12:25 TREATMENT PLANT OPERATOR CPT-93684 Venipuncture Draw Fee 08:12:24 TREATMENT PLANT OPERATOR CPT-10113 Venipuncture Draw Fee 11:31:07 TREATMENT PLANT OPERATOR CPT-21714 TPSA - LAB USE ONLY 11:31:07 TREATMENT PLANT OPERATOR CPT-14724 PT/INR - LAB USE ONLY 11:31:07 TREATMENT PLANT OPERATOR CPT-G0439 Subsequent Annual Wellness Exam 09:59:29 TREATMENT PLANT OPERATOR CPT-73229 Creatinine - LAB USE ONLY 14:37:55 TREATMENT PLANT OPERATOR CPT-80824 PT/INR - LAB USE ONLY 14:37:55 TREATMENT PLANT OPERATOR CPT-78510 Venipuncture Draw Fee 14:37:55 TREATMENT PLANT OPERATOR CPT-67768 LS spine comp w obliques - XRAY USE ONLY 12:59:25 TREATMENT PLANT OPERATOR CPT-81220 PT/INR - LAB USE ONLY 13:49:20 CDT CPT-74363 Venipuncture Draw Fee 13:49:19 CDT CPT-13927 PT/INR - LAB USE ONLY 15:48:49 CDT CPT-42980 Venipuncture Draw Fee 15:48:49 CDT CPT-67287 Venipuncture Draw Fee 11:31:59 CDT CPT-55247 PT/INR - LAB USE ONLY 11:31:59 CDT CPT-30481 Venipuncture Draw Fee 13:29:15 CDT CPT-03137 Thoracolumbar AP/Lat 15:19:19 TREATMENT PLANT OPERATOR CPT-G0438 Initial Annual Wellness Exam 12:18:54 TREATMENT PLANT OPERATOR CPT-23204 Knee 3V 09:57:38 CDT CPT-OV Office Visit 15:45:01 TREATMENT PLANT OPERATOR CPT-07335 Abd compl w upright 17:10:25 CDT
--- OUTSIDE RECORDS SUMMARY | 2018-07-18 08:37 | XMS REPORT | Clinical Summary ---
[...] Coronary atherosclerosis of unspecified type of vessel, [place] or graft Back pain, thoracic region, left [...] po tid with ES Tylenol TRAMADOL HCL 81280863883 Active Piotr Daley DO Active WARFARIN SODIUM 5 MG TABS 1 tablet daily except for Saturday and Sat 1/2 tablet. WARFARIN SODIUM 19345026981 Active Piotr Daley DO Active PREDNISONE 20 MG TAB 2 tablets today, then 1 tablet days 2 through 4 PREDNISONE 40249045029 No Longer Active Piotr Daley DO Active AZITHROMYCIN 250 MG TABS 2 po qd x 1 day, then 1 po qd x 4 days AZITHROMYCIN 48977074149 No Longer Active Piotr Daley DO Active IBUPROFEN 800 MG TABS 1 tab every 8 hours as needed IBUPROFEN 38462131058 No Longer Active Piotr Daley DO Active LOMOTIL 2.5-0.025 MG TAB 1 to 2 four times a day as needed for diarrhea 10/13 DIPHENOXYLATE-ATROPINE 34517650127 No Longer Active Piotr Daley DO Active WARFARIN SODIUM 4 MG TABS 1 tab every evening WARFARIN SODIUM 56271594908 No Longer Active Piotr Daley DO Active PREDNISONE 20 MG TAB 1 tablet twice daily for 2 days, then 1 tablet once daily for 2 days PREDNISONE 83921148434 No Longer Active Piotr Daley DO Active PROMETHAZINE HCL 25 MG TABS 1 four times a day as needed for nausea/vomiting PROMETHAZINE HCL 54898758060 No Longer Active Piotr Daley DO Active TUSSIONEX PENNKINETIC ER 10-8 MG/5ML LQCR 5ml po q12hr PRN Cough HYDROCOD POLST-CHLORPHEN POLST 28585899103 No Longer Active Piotr Daley DO Active AZITHROMYCIN 250 MG TABS 2 po qd x 1 day, then 1 po qd x 4 days AZITHROMYCIN 88343426131 No Longer Active Piotr Daley DO Active AZITHROMYCIN 250 MG TABS 2 po qd x 1 day, then 1 po qd x 4 days AZITHROMYCIN 54049531498 No Longer Active Piotr Daley DO Active LISINOPRIL-HYDROCHLOROTHIAZIDE 10-12.5 MG TABS 1 tab by mouth daily LISINOPRIL-HYDROCHLOROTHIAZIDE 58594406520 Active Hilary Ma MA Active LISINOPRIL 10 MG TABS 1/2-1 tab po every other day LISINOPRIL 98841919997 No Longer Active Piotr Daley DO Active VENTOLIN HFA 108 (90 BASE) MCG/ACT AERS 2 puffs four times a day PRN cough ALBUTEROL SULFATE 51935019251 No Longer Active Piotr Daley DO Active NYSTATIN-TRIAMCINOLONE 096515-7.1 UNIT/GM-% CREA Apply to area BID NYSTATIN-TRIAMCINOLONE 77915929894 No Longer Active Alena Jarvis Fan MEDIA ARTS PROFESSOR Active PHISOHEX 3 % LIQD Use Directed HEXACHLOROPHENE 63855100218 No Longer Active Sandra Cordell Active AZITHROMYCIN 250 MG TABS 2 po qd x 1 day, then 1 po qd x 4 days AZITHROMYCIN 32626776794 No Longer Active Katrina Rinaldi MD PhD Active AZITHROMYCIN 250 MG TABS 2 po qd x 1 day, then 1 po qd x 4 days AZITHROMYCIN 01971294248 No Longer Active Piotr Daley DO Active AZITHROMYCIN 500 MG SOLR 1 po q day AZITHROMYCIN 51219500485 No Longer Active Piotr Daley DO Active NYSTATIN-TRIAMCINOLONE 963207-2.1 UNIT/GM-% CREA apply bid 08/19 NYSTATIN-TRIAMCINOLONE 80452028758 No Longer Active Piotr Daley DO Active IBUPROFEN 800 MG TABS 1 po q 8 hours prn pain sparinly IBUPROFEN 31551721565 No Longer Active Piotr Daley DO Active VITAMIN D3 5000 UNIT CAPS 1 po daily CHOLECALCIFEROL 73844249364 Active Piotr Daley DO Active IBUPROFEN 800 MG TABS 1 po q 8 hours prn pain sparinly IBUPROFEN 800 MG TABS 625841 IBUPROFEN Inactive NYSTATIN-TRIAMCINOLONE 813617-3.1 UNIT/GM-% CREA apply bid 08/19 NYSTATIN-TRIAMCINOLONE 640082-9.1 UNIT/GM-% CREA 5653539 NYSTATIN- TRIAMCINOLONE Inactive AZITHROMYCIN 500 MG SOLR 1 po q day AZITHROMYCIN 500 MG SOLR 835679 AZITHROMYCIN Inactive VENTOLIN HFA 108 (90 BASE) MCG/ACT AERS 2 puffs four times a day PRN cough VENTOLIN HFA 108 (90 BASE) MCG/ACT AERS ALBUTEROL SULFATE Inactive LISINOPRIL 10 MG TABS 1/2-1 tab po every other day LISINOPRIL 10 MG TABS 716929 LISINOPRIL Inactive TUSSIONEX PENNKINETIC ER 10-8 MG/5ML LQCR 5ml po q12hr PRN Cough TUSSIONEX PENNKINETIC ER 10-8 MG/5ML LQCR HYDROCOD POLST- CHLORPHEN POLST Inactive PROMETHAZINE HCL 25 MG TABS 1 four times a day as needed for nausea/vomiting PROMETHAZINE HCL 25 MG TABS 998077 PROMETHAZINE HCL Inactive PREDNISONE 20 MG TAB 1 tablet twice daily for 2 days, then 1 tablet once daily for 2 days PREDNISONE 20 MG TAB 012273 PREDNISONE Inactive WARFARIN SODIUM 4 MG TABS 1 tab every evening WARFARIN SODIUM 4 MG TABS 424450 WARFARIN SODIUM Inactive LOMOTIL 2.5-0.025 MG TAB 1 to 2 four times a day as needed for diarrhea 10/13 LOMOTIL 2.5-0.025 MG TAB 6770715 DIPHENOXYLATE-ATROPINE Inactive IBUPROFEN 800 MG TABS 1 tab every 8 hours as needed IBUPROFEN 800 MG TABS 760422 IBUPROFEN Inactive PREDNISONE 20 MG TAB 2 tablets today, then 1 tablet days 2 through 4 PREDNISONE 20 MG TAB 180236 PREDNISONE Inactive AZITHROMYCIN 250 MG TABS 2 po qd x 1 day, then 1 po qd x 4 days AZITHROMYCIN 250 MG TABS 0215885 AZITHROMYCIN Inactive AZITHROMYCIN 250 MG TABS 2 po qd x 1 day, then 1 po qd x 4 days AZITHROMYCIN 250 MG TABS 0298064 AZITHROMYCIN Inactive NYSTATIN-TRIAMCINOLONE 144712-7.1 UNIT/GM-% CREA Apply to area BID NYSTATIN-TRIAMCINOLONE 201828-9.1 UNIT/GM-% CREA 5870690 NYSTATIN-TRIAMCINOLONE Inactive AZITHROMYCIN 250 MG TABS 2 po qd x 1 day, then 1 po qd x 4 days AZITHROMYCIN 250 MG TABS 7854118 AZITHROMYCIN Inactive AZITHROMYCIN 250 MG TABS 2 po qd x 1 day, then 1 po qd x 4 days AZITHROMYCIN 250 MG TABS 7594687 AZITHROMYCIN Inactive AZITHROMYCIN 250 MG TABS 2 po qd x 1 day, then 1 po qd x 4 days AZITHROMYCIN 250 MG TABS 3352443 AZITHROMYCIN Inactive Advance Directives Directive Description Start [...] mg/g mg/g{creat} 0-29 sodium, serum 140 mmol/L 350-695 2367/07/17 potassium, serum 4.2 mmol/L 3.5-5.2 chloride, serum [...] 0-19 Lab Report: Prothrombin Time - Coagulation international normalized ratio (INR) 2.0 1.0-3.5 prothrombin time (patient) 17.7 SECS s 11.1-13.4 international normalized ratio (INR) 2.8 1.0-3.5 prothrombin time (patient) 21.0 SECS s 11.1-13.4 prothrombin time (patient) 19.9 SECS s 11.1-13.4 prothrombin time (patient) 23.4 SECS s 11.1-13.4 international normalized ratio (INR) 3.5 1.0-3.5 prothrombin time (patient) 19.5 SECS s [...] (INR) 1.9 1.0-3.5 international normalized ratio (INR) 2.6 1.0-3.5 prothrombin [...] 5.0-8.5 Encounters Code Encounter Date Provider Facility CPT-08631 Level 3 Est. Patient 15:14:31 WIRE CHARGER Piotr Daley [facility] CPT-43728 Level 3 Est. Patient 09:20:13 WIRE CHARGER Piotr Daley [facility]-20691 Level 3 Est. Patient 09:49:40 CDT Piotr Daley [facility] CPT-18965 Level 3 Est. Patient 16:28:11 CDT Piotr Daley [facility] CPT-72505 Level 3 Est. Patient 12:41:58 WIRE CHARGER Piotr Daley [facility] CPT-11692 Level 3 Est. Patient 09:21:24 CDT Piotr Daley [facility] CPT-54404 Level 3 Est. Patient 09:21:11 CDT Piotr Daley [facility] CPT-42209 Level 3 Est. Patient 11:16:29 WIRE CHARGER Piotr Daley [facility] CPT-69861 Level 3 Est. Patient 18:40:19 WIRE CHARGER Piotr Daley [facility]-18613 Level 3 Est. Patient 19:30:50 CDT Piotr Daley [facility] CPT-14076 Level 3 Est. Patient 22:06:44 CDT Katrina Rinaldi MD PhD [facility]-33661 Level 3 Est. Patient 14:20:00 CDT Piotr Daley [facility] CPT-62432 Level 3 Est. Patient 14:15:22 WIRE CHARGER Piotr Daley [facility] CPT-49550 Level 3 Est. Patient 20:19:57 WIRE CHARGER Piotr Daley [facility] CPT-83850 Level 3 Est. Patient 16:44:32 CDT Piotr Wilson Edi [facility] CPT-25655 Level 3 Est. Patient 08:48:46 WIRE CHARGER Piotr Katie [facility] CPT-76985 Level 3 Est. Patient 21:01:21 CDT Piotr Wilson [facility] Procedures Code Procedure Name Date Entry Date Standard Description CPT-68146 Thoracolumbar AP/Lat 15:19:19 WIRE CHARGER CPT-G0438 Initial Annual Wellness Exam 12:18:54 WIRE CHARGER CPT-47408 Knee 3V 09:57:38 CDT CPT-OV Office Visit 15:45:01 WIRE CHARGER CPT-14039 Abd compl w upright 17:10:25 CDT
--- OUTSIDE RECORDS SUMMARY | 2018-07-18 08:38 | XMS REPORT | Clinical Summary ---
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 Personal history of malignant neoplasm of prostate Coronary artery disease 414.00 Active Alina Meyers APRN Coronary atherosclerosis of unspecified type of vessel, [place] or graft Back pain, thoracic [...] respiratory abnormality Sacroiliitis, right 720.2 Active Emelyn oNrris Sacroiliitis, not elsewhere classified FLANK PAIN, RIGHT [...] Knee pain, left ICD-719.46 Inactive Sirisha Chen SPRING MANUFACTURING SET UP TECHNICIAN Actinic keratoses ICD-702.0 Inactive Sirisha Chen SPRING MANUFACTURING SET UP TECHNICIAN Back pain, thoracic region, left ICD-724.1 Inactive Piotr Daley DO Thoracic back pain ICD-724.5 Inactive Sirisha Chen SPRING MANUFACTURING SET UP TECHNICIAN Back pain lumbar ICD-724.2 Inactive Sirisha Chen SPRING MANUFACTURING SET UP TECHNICIAN Insect bite ICD-919.4 Inactive Sirisha Chen SPRING MANUFACTURING SET UP TECHNICIAN Pruritus ICD-698.9 Inactive Sirisha Chen SPRING MANUFACTURING SET UP TECHNICIAN 04/09 Bronchitis-Acute ICD-466.0 Inactive Sirisha Chen SPRING MANUFACTURING SET UP TECHNICIAN Dyspnea ICD-786.09 Inactive Sirisha Chen SPRING MANUFACTURING SET UP TECHNICIAN 05/09 Medication List Medication Instructions Start Date Stop Date Generic Name NDC Status Provider Patient Instruction WARFARIN SODIUM 4 MG ORAL TABLET 1 tablet by mouth daily WARFARIN SODIUM 10594138574 Active Anahy Loja Active MELOXICAM 15 MG ORAL TABLET 1 po q day for pain with food MELOXICAM 54924985372 Active Piotr Daley DO Active PREDNISONE 10 MG ORAL TABLET 1 tablet by mouth daily PREDNISONE 78593990835 No Longer Active Emelyn Norris Active TESSALON PERLES 100 MG ORAL CAPSULE 1-2 tablet by mouth 3 times daily 04/16 BENZONATATE 46185807009 No Longer Active Emelyn Norris Active PREDNISONE 20 MG ORAL TABLET two tabs by mouth today, then one tab by mouth days two and three PREDNISONE 70395412460 No Longer Active Piotr Daley DO Active CYCLOBENZAPRINE HCL 10 MG ORAL TABLET 1 tablet by mouth three times daily as needed for muscle spasm/pain CYCLOBENZAPRINE HCL 41439999375 Active Sirisha Gustavo SPRING MANUFACTURING SET UP TECHNICIAN Active ZITHROMAX 250 MG ORAL TABLET Take two (2 ) tablets day one, then one (1) tablet a day for four (4) more days AZITHROMYCIN 26377556032 No Longer Active Piotr Daley DO Active PROAIR HFA 108 (90 BASE) MCG/ACT INHALATION AEROSOL SOLUTION 1-2 puffs four times a day as needed ALBUTEROL SULFATE 71793033314 No Longer Active Emelyn Norris Active DOXYCYCLINE HYCLATE 100 MG ORAL CAPSULE 1 cap by mouth BID x10 days DOXYCYCLINE HYCLATE 05257574870 No Longer Active Nella Harris APRN Active PREDNISONE 20 MG ORAL TABLET 2 tabs daily for 3 days, 1 tab daily for 3 days, 1/2 tab daily for 2 days PREDNISONE 37968114480 No Longer Active Matthew Rangel MD Active TRAMADOL HCL 50 MG ORAL TABLET 1 po tid with ES Tylenol TRAMADOL HCL 54656419191 No Longer Active Matthew Rangel MD Active GABAPENTIN 300 MG ORAL CAPSULE 1 po q hs for nerve pain GABAPENTIN 32024316840 No Longer Active Matthew Rangel MD Active PREDNISONE 20 MG ORAL TABLET 2 tablets today, then 1 tablet days 2 through 4 PREDNISONE 65975969613 No Longer Active Piotr Daley DO Active AZITHROMYCIN 250 MG ORAL TABLET 2 po qd x 1 day, then 1 po qd x 4 days 07/12 AZITHROMYCIN 32489708667 No Longer Active Piotr Daley DO Active IBUPROFEN 800 MG ORAL TABLET 1 tab every 8 hours as needed 07/12 IBUPROFEN 09095139426 No Longer Active Piotr Daley DO Active LOMOTIL 2.5-0.025 MG ORAL TABLET 1 to 2 four times a day as needed for diarrhea DIPHENOXYLATE-ATROPINE 50079687017 No Longer Active Piotr W Edi DO Active WARFARIN SODIUM 4 MG ORAL TABLET 1 tab every evening WARFARIN SODIUM 87505959133 No Longer Active Piotr Daley DO Active PREDNISONE 20 MG ORAL TABLET 1 tablet twice daily for 2 days, then 1 tablet once daily for 2 days PREDNISONE 79420221871 No Longer Active Piotr Daley DO Active PROMETHAZINE HCL 25 MG ORAL TABLET 1 four times a day as needed for nausea/ vomiting PROMETHAZINE HCL 52244572823 No Longer Active Piotr Daley DO Active TUSSIONEX PENNKINETIC ER 10-8 MG/5ML ORAL SUSPENSION EXTENDED RELEASE 5ml po q12hr PRN Cough HYDROCOD POLST-CHLORPHEN POLST 70121327518 No Longer Active Piotr Daley DO Active AZITHROMYCIN 250 MG ORAL TABLET 2 po qd x 1 day, then 1 po qd x 4 days 10/13 AZITHROMYCIN 23326716633 No Longer Active Piotr Daley DO Active AZITHROMYCIN 250 MG ORAL TABLET 2 po qd x 1 day, then 1 po qd x 4 days 05/07 AZITHROMYCIN 84063489283 No Longer Active Piotr Daley DO Active LISINOPRIL-HYDROCHLOROTHIAZIDE 10-12.5 MG ORAL TABLET 1 tab by mouth daily LISINOPRIL-HYDROCHLOROTHIAZIDE 55641661630 Active Piotr Daley DO Active LISINOPRIL 10 MG ORAL TABLET 1/2-1 tab po every other day LISINOPRIL 59086332151 No Longer Active Piotr Daley DO Active VENTOLIN HFA 108 (90 Base) MCG/ACT INHALATION AEROSOL SOLUTION 2 puffs four times a day PRN cough ALBUTEROL SULFATE 69442150986 No Longer Active Piotr Daley DO Active NYSTATIN-TRIAMCINOLONE 874390-4.1 UNIT/GM-% EXTERNAL CREAM Apply to area BID NYSTATIN-TRIAMCINOLONE 01192865259 No Longer Active Alena Chavira SPRING MANUFACTURING SET UP TECHNICIAN Active PHISOHEX 3 % LIQD Use Directed HEXACHLOROPHENE 75426176609 No Longer Active Sandra Archer Active AZITHROMYCIN 250 MG ORAL TABLET 2 po qd x 1 day, then 1 po qd x 4 days 10/21 AZITHROMYCIN 08452557207 No Longer Active Katrina Rinaldi MD PhD Active AZITHROMYCIN 250 MG ORAL TABLET 2 po qd x 1 day, then 1 po qd x 4 days 10/16 AZITHROMYCIN 33794680849 No Longer Active Piotr Daley DO Active AZITHROMYCIN 500 MG INTRAVENOUS SOLUTION RECONSTITUTED 1 po q day AZITHROMYCIN 02406687488 No Longer Active Piotr Daley DO Active NYSTATIN-TRIAMCINOLONE 589425-1.1 UNIT/GM-% EXTERNAL CREAM apply bid NYSTATIN-TRIAMCINOLONE 16018835155 No Longer Active Piotr Daley DO Active IBUPROFEN 800 MG ORAL TABLET 1 po q 8 hours prn pain sparinly IBUPROFEN 19574159880 No Longer Active Piotr Daley DO Active VITAMIN D3 5000 UNIT ORAL CAPSULE 1 po daily CHOLECALCIFEROL 78432284910 Active Piotr Daley DO Active IBUPROFEN 800 MG ORAL TABLET 1 po q 8 hours prn pain sparinly IBUPROFEN 800 MG ORAL TABLET 961857 IBUPROFEN Inactive NYSTATIN-TRIAMCINOLONE 542963-0.1 UNIT/GM-% EXTERNAL CREAM apply bid NYSTATIN-TRIAMCINOLONE 218744-6.1 UNIT/GM-% EXTERNAL CREAM 4580073 NYSTATIN-TRIAMCINOLONE Inactive AZITHROMYCIN 500 MG INTRAVENOUS SOLUTION RECONSTITUTED 1 po q day AZITHROMYCIN 500 MG INTRAVENOUS SOLUTION RECONSTITUTED 22598856650 AZITHROMYCIN Inactive VENTOLIN HFA 108 (90 Base) MCG/ACT INHALATION AEROSOL SOLUTION 2 puffs four times a day PRN cough VENTOLIN HFA 108 (90 Base) MCG/ ACT INHALATION AEROSOL SOLUTION ALBUTEROL SULFATE Inactive LISINOPRIL 10 MG ORAL TABLET 1/2-1 tab po every other day LISINOPRIL 10 MG ORAL TABLET 500048 LISINOPRIL Inactive TUSSIONEX PENNKINETIC ER 10-8 MG/5ML ORAL SUSPENSION EXTENDED RELEASE 5ml po q12hr PRN Cough TUSSIONEX PENNKINETIC ER 10-8 MG/5ML ORAL SUSPENSION EXTENDED RELEASE HYDROCOD POLST-CHLORPHEN POLST Inactive PROMETHAZINE HCL 25 MG ORAL TABLET 1 four times a day as needed for nausea/ vomiting PROMETHAZINE HCL 25 MG ORAL TABLET 867236 PROMETHAZINE HCL Inactive PREDNISONE 20 MG ORAL TABLET 1 tablet twice daily for 2 days, then 1 tablet once daily for 2 days PREDNISONE 20 MG ORAL TABLET 350159 PREDNISONE Inactive WARFARIN SODIUM 4 MG ORAL TABLET 1 tab every evening WARFARIN SODIUM 4 MG ORAL TABLET 144745 WARFARIN SODIUM Inactive LOMOTIL 2.5-0.025 MG ORAL TABLET 1 to 2 four times a day as needed for diarrhea LOMOTIL 2.5-0.025 MG ORAL TABLET 4573221 DIPHENOXYLATE-ATROPINE Inactive IBUPROFEN 800 MG ORAL TABLET 1 tab every 8 hours as needed 07/12 IBUPROFEN 800 MG ORAL TABLET 893493 IBUPROFEN Inactive PREDNISONE 20 MG ORAL TABLET 2 tablets today, then 1 tablet days 2 through 4 PREDNISONE 20 MG ORAL TABLET 955867 PREDNISONE Inactive GABAPENTIN 300 MG ORAL CAPSULE 1 po q hs for nerve pain GABAPENTIN 300 MG ORAL CAPSULE 138559 GABAPENTIN Inactive TRAMADOL HCL 50 MG ORAL TABLET 1 po tid with ES Tylenol TRAMADOL HCL 50 MG ORAL TABLET 625440 TRAMADOL HCL Inactive PROAIR HFA 108 (90 BASE) MCG/ACT INHALATION AEROSOL SOLUTION 1-2 puffs four times a day as needed PROAIR HFA 108 (90 BASE) MCG/ACT INHALATION AEROSOL SOLUTION ALBUTEROL SULFATE Inactive PREDNISONE 20 MG ORAL TABLET two tabs by mouth today, then one tab by mouth days two and three PREDNISONE 20 MG ORAL TABLET 304916 PREDNISONE Inactive TESSALON PERLES 100 MG ORAL CAPSULE 1-2 tablet by mouth 3 times daily 04/16 TESSALON PERLES 100 MG ORAL CAPSULE 794785 BENZONATATE Inactive PREDNISONE 10 MG ORAL TABLET 1 tablet by mouth daily PREDNISONE 10 MG ORAL TABLET 901126 PREDNISONE Inactive AZITHROMYCIN 250 MG ORAL TABLET 2 po qd x 1 day, then 1 po qd x 4 days 10/16 AZITHROMYCIN 250 MG ORAL TABLET 534541 AZITHROMYCIN Inactive AZITHROMYCIN 250 MG ORAL TABLET 2 po qd x 1 day, then 1 po qd x 4 days 10/21 AZITHROMYCIN 250 MG ORAL TABLET 579091 AZITHROMYCIN Inactive NYSTATIN-TRIAMCINOLONE 193162-9.1 UNIT/GM-% EXTERNAL CREAM Apply to area BID NYSTATIN-TRIAMCINOLONE 093585-6.1 UNIT/GM-% EXTERNAL CREAM 6348607 NYSTATIN-TRIAMCINOLONE Inactive AZITHROMYCIN 250 MG ORAL TABLET 2 po qd x 1 day, then 1 po qd x 4 days 05/07 AZITHROMYCIN 250 MG ORAL TABLET 526001 AZITHROMYCIN Inactive AZITHROMYCIN 250 MG ORAL TABLET 2 po qd x 1 day, then 1 po qd x 4 days 10/13 AZITHROMYCIN 250 MG ORAL TABLET 092376 AZITHROMYCIN Inactive AZITHROMYCIN 250 MG ORAL TABLET 2 po qd x 1 day, then 1 po qd x 4 days 07/12 AZITHROMYCIN 250 MG ORAL TABLET 954251 AZITHROMYCIN Inactive PREDNISONE 20 MG ORAL TABLET 2 tabs daily for 3 days, 1 tab daily for 3 days, 1/2 tab daily for 2 days PREDNISONE 20 MG ORAL TABLET 378458 PREDNISONE Inactive DOXYCYCLINE HYCLATE 100 MG ORAL CAPSULE 1 cap by mouth BID x10 days DOXYCYCLINE HYCLATE 100 MG ORAL CAPSULE 7571686 DOXYCYCLINE HYCLATE Inactive ZITHROMAX 250 MG ORAL TABLET Take two (2 ) tablets day one, then one (1) tablet a day for four (4) more days ZITHROMAX 250 MG ORAL TABLET 528592 AZITHROMYCIN Inactive Advance Directives Directive Description Start [...] 18.9-24.9 Encounters Code Encounter Date Provider Facility CPT-39506 Level 3 Est. Patient 15:59:25 BASIN CLEANER Piotr Daley [facility] CPT-86967 Level 3 Est. Patient 12:33:59 BASIN CLEANER Piotr Daley [facility] CPT-16888 Level 3 Est. Patient 15:56:17 BASIN CLEANER Piotr Daley [facility] CPT-69230 Level 3 Est. Patient 10:34:54 BASIN CLEANER Piotr Daley [facility] CPT-53441 Level 3 Est. Patient 17:10:19 CDT Nella Harris APRN [facility] CPT-62550 Level 3 Est. Patient 10:48:17 BASIN CLEANER Matthew Rangel MD [facility] CPT-64134 Level 4 Est. Patient 17:15:07 BASIN CLEANER Piotr Daley [facility] CPT-20140 Level 3 Est. Patient 12:46:13 BASIN CLEANER Piotr Daley [facility] CPT-06652 Level 3 Est. Patient 15:14:31 BASIN CLEANER Piotr Daley [facility] CPT-72258 Level 3 Est. Patient 09:20:13 BASIN CLEANER Piotr Katie Edi [facility] CPT-27008 Level 3 Est. Patient 09:49:40 CDT Piotr Wilson [facility] CPT-66826 Level 3 Est. Patient 16:28:11 CDT Piotr Katie Daley [facility] CPT-79083 Level 3 Est. Patient 12:41:58 BASIN CLEANER Piotr Katie Edi [facility] CPT-29081 Level 3 Est. Patient 09:21:24 CDT Piotr Wilson [facility] CPT-02293 Level 3 Est. Patient 09:21:11 CDT Piotr Wilson [facility] CPT-16024 Level 3 Est. Patient 11:16:29 BASIN CLEANER Piotr Daley [facility] CPT-91938 Level 3 Est. Patient 18:40:19 BASIN CLEANER Piotr Daley [facility] CPT-07602 Level 3 Est. Patient 19:30:50 CDT Piotr Daley [facility] CPT-39100 Level 3 Est. Patient 22:06:44 CDT Katrina Rinaldi MD [facility] CPT-38032 Level 3 Est. Patient 14:20:00 CDT Piotr Daley [facility] CPT-64303 Level 3 Est. Patient 14:15:22 BASIN CLEANER Piotr Daley [facility] CPT-16886 Level 3 Est. Patient 20:19:57 BASIN CLEANER Piotr Daley [facility] CPT-89258 Level 3 Est. Patient 16:44:32 CDT Piotr Daley [facility] CPT-81481 Level 3 Est. Patient 08:48:46 BASIN CLEANER Piotr Daley [facility] CPT-13360 Level 3 Est. Patient 21:01:21 CDT Piotr Wilson [facility] Procedures Code Procedure Name Date Entry Date Standard Description CPT-26169 Sacroiliac jt < 3V - XRAY USE ONLY 16:45:19 BASIN CLEANER 05/09 CPT-60013 LS spine comp w obliques - XRAY USE ONLY 14:52:26 BASIN CLEANER CPT-32035 Chest, 2 views 12:55:58 BASIN CLEANER CPT-G0439 [facility] Annual Wellness Exam 10:34:52 BASIN CLEANER CPT-84764 BMP - LAB USE ONLY 17:19:11 BASIN CLEANER CPT-41494 PT/INR - LAB USE ONLY 17:19:10 BASIN CLEANER CPT-26996 Venipuncture Draw Fee 17:19:10 BASIN CLEANER CPT-65110 PT/INR - LAB USE ONLY 08:12:25 BASIN CLEANER CPT-95128 Venipuncture Draw Fee 08:12:24 BASIN CLEANER CPT-88295 Venipuncture Draw Fee 11:31:07 BASIN CLEANER CPT-27331 TPSA - LAB USE ONLY 11:31:07 [facility] CPT-82432 PT/INR - LAB USE ONLY 11:31:07 BASIN CLEANER CPT-G0439 Subsequent Annual Wellness Exam 09:59:29 BASIN CLEANER CPT-15885 Creatinine - LAB USE ONLY 14:37:55 BASIN CLEANER CPT-15610 PT/INR - LAB USE ONLY 14:37:55 [facility] CPT-67878 Venipuncture Draw Fee 14:37:55 [facility] CPT-65859 LS spine comp w obliques - XRAY USE ONLY 12:59:25 [facility] CPT-63811 PT/INR - LAB USE ONLY 13:49:20 CDT CPT-09976 Venipuncture Draw Fee 13:49:19 CDT CPT-65921 PT/INR - LAB USE ONLY 15:48:49 CDT CPT-18205 Venipuncture Draw Fee 15:48:49 CDT CPT-89660 Venipuncture Draw Fee 11:31:59 CDT CPT-75535 PT/INR - LAB USE ONLY 11:31:59 CDT CPT-62888 Venipuncture Draw Fee 13:29:15 CDT CPT-59645 Thoracolumbar AP/Lat 15:19:19 [facility] CPT-G0438 Initial Annual Wellness Exam 12:18:54 BASIN CLEANER CPT-07344 Knee 3V 09:57:38 CDT CPT-OV Office Visit 15:45:01 BASIN CLEANER CPT-70823 Abd compl w upright 17:10:25 CDT
--- OUTSIDE RECORDS SUMMARY | 2018-07-18 08:39 | XMS REPORT | Clinical Summary ---
Author Author Admin, E Organization [employer] Address Unknown Phone Unavailable Allergies, Adverse Reactions, [...] Coronary atherosclerosis of unspecified type of vessel, [place] or graft Back pain, thoracic region, [...] po tid with ES Tylenol TRAMADOL HCL 67849266263 Active Piotr Daley DO Active WARFARIN SODIUM 5 MG TABS 1 tablet daily except for Saturday and Sat 1/2 tablet. WARFARIN SODIUM 89732304261 Active Hilary Ma MA Active PREDNISONE 20 MG TAB 2 tablets today, then 1 tablet days 2 through 4 PREDNISONE 92255652356 No Longer Active Piotr Daley DO Active AZITHROMYCIN 250 MG TABS 2 po qd x 1 day, then 1 po qd x 4 days AZITHROMYCIN 31797500140 No Longer Active Piotr Daley DO Active IBUPROFEN 800 MG TABS 1 tab every 8 hours as needed IBUPROFEN 70330772555 No Longer Active Piotr Daley DO Active LOMOTIL 2.5-0.025 MG TAB 1 to 2 four times a day as needed for diarrhea 10/13 DIPHENOXYLATE-ATROPINE 69978652578 No Longer Active Piotr Daley DO Active WARFARIN SODIUM 4 MG TABS 1 tab every evening WARFARIN SODIUM 77501412202 No Longer Active Piotr Daley DO Active PREDNISONE 20 MG TAB 1 tablet twice daily for 2 days, then 1 tablet once daily for 2 days PREDNISONE 19914060051 No Longer Active Piotr Daley DO Active PROMETHAZINE HCL 25 MG TABS 1 four times a day as needed for nausea/vomiting PROMETHAZINE HCL 24212248690 No Longer Active Piotr Daley DO Active TUSSIONEX PENNKINETIC ER 10-8 MG/5ML LQCR 5ml po q12hr PRN Cough HYDROCOD POLST-CHLORPHEN POLST 72430341970 No Longer Active Piotr Daley DO Active AZITHROMYCIN 250 MG TABS 2 po qd x 1 day, then 1 po qd x 4 days AZITHROMYCIN 14222742698 No Longer Active Piotr Daley DO Active AZITHROMYCIN 250 MG TABS 2 po qd x 1 day, then 1 po qd x 4 days AZITHROMYCIN 62618318621 No Longer Active Piotr Daley DO Active LISINOPRIL-HYDROCHLOROTHIAZIDE 10-12.5 MG TABS 1 tab by mouth daily LISINOPRIL-HYDROCHLOROTHIAZIDE 38426975952 Active Hilary Ma MA Active LISINOPRIL 10 MG TABS 1/2-1 tab po every other day LISINOPRIL 62569775122 No Longer Active Piotr Daley DO Active VENTOLIN HFA 108 (90 BASE) MCG/ACT AERS 2 puffs four times a day PRN cough ALBUTEROL SULFATE 31545010453 No Longer Active Piotr Daley DO Active NYSTATIN-TRIAMCINOLONE 139841-7.1 UNIT/GM-% CREA Apply to area BID NYSTATIN-TRIAMCINOLONE 91286864200 No Longer Active Alena Chavira PATIENT EXPERIENCE COORDINATOR Active PHISOHEX 3 % LIQD Use Directed HEXACHLOROPHENE 83215860184 No Longer Active Sandra Arco Active AZITHROMYCIN 250 MG TABS 2 po qd x 1 day, then 1 po qd x 4 days AZITHROMYCIN 54581198492 No Longer Active Katrina Rinaldi MD PhD Active AZITHROMYCIN 250 MG TABS 2 po qd x 1 day, then 1 po qd x 4 days AZITHROMYCIN 81045344373 No Longer Active Piotr Daley DO Active AZITHROMYCIN 500 MG SOLR 1 po q day AZITHROMYCIN 47490654217 No Longer Active Piotr Daley DO Active NYSTATIN-TRIAMCINOLONE 667483-9.1 UNIT/GM-% CREA apply bid 08/19 NYSTATIN-TRIAMCINOLONE 42885643740 No Longer Active Piotr Daley DO Active IBUPROFEN 800 MG TABS 1 po q 8 hours prn pain sparinly IBUPROFEN 21976115471 No Longer Active Piotr Daley DO Active VITAMIN D3 5000 UNIT CAPS 1 po daily CHOLECALCIFEROL 65631613261 Active Piotr Daley DO Active IBUPROFEN 800 MG TABS 1 po q 8 hours prn pain sparinly IBUPROFEN 800 MG TABS 670755 IBUPROFEN Inactive NYSTATIN-TRIAMCINOLONE 292076-4.1 UNIT/GM-% CREA apply bid 08/19 NYSTATIN-TRIAMCINOLONE 478848-3.1 UNIT/GM-% CREA 5642255 NYSTATIN- TRIAMCINOLONE Inactive AZITHROMYCIN 500 MG SOLR 1 po q day AZITHROMYCIN 500 MG SOLR 50752748175 AZITHROMYCIN Inactive VENTOLIN HFA 108 (90 BASE) MCG/ACT AERS 2 puffs four times a day PRN cough VENTOLIN HFA 108 (90 BASE) MCG/ACT AERS ALBUTEROL SULFATE Inactive LISINOPRIL 10 MG TABS 1/2-1 tab po every other day LISINOPRIL 10 MG TABS 523066 LISINOPRIL Inactive TUSSIONEX PENNKINETIC ER 10-8 MG/5ML LQCR 5ml po q12hr PRN Cough TUSSIONEX PENNKINETIC ER 10-8 MG/5ML LQCR HYDROCOD POLST- CHLORPHEN POLST Inactive PROMETHAZINE HCL 25 MG TABS 1 four times a day as needed for nausea/vomiting PROMETHAZINE HCL 25 MG TABS 110044 PROMETHAZINE HCL Inactive PREDNISONE 20 MG TAB 1 tablet twice daily for 2 days, then 1 tablet once daily for 2 days PREDNISONE 20 MG TAB 008327 PREDNISONE Inactive WARFARIN SODIUM 4 MG TABS 1 tab every evening WARFARIN SODIUM 4 MG TABS 835579 WARFARIN SODIUM Inactive LOMOTIL 2.5-0.025 MG TAB 1 to 2 four times a day as needed for diarrhea 10/13 LOMOTIL 2.5-0.025 MG TAB 3872262 DIPHENOXYLATE-ATROPINE Inactive IBUPROFEN 800 MG TABS 1 tab every 8 hours as needed IBUPROFEN 800 MG TABS 670528 IBUPROFEN Inactive PREDNISONE 20 MG TAB 2 tablets today, then 1 tablet days 2 through 4 PREDNISONE 20 MG TAB 040963 PREDNISONE Inactive AZITHROMYCIN 250 MG TABS 2 po qd x 1 day, then 1 po qd x 4 days AZITHROMYCIN 250 MG TABS 5364551 AZITHROMYCIN Inactive AZITHROMYCIN 250 MG TABS 2 po qd x 1 day, then 1 po qd x 4 days AZITHROMYCIN 250 MG TABS 8071677 AZITHROMYCIN Inactive NYSTATIN-TRIAMCINOLONE 451273-3.1 UNIT/GM-% CREA Apply to area BID NYSTATIN-TRIAMCINOLONE 564326-1.1 UNIT/GM-% CREA 5387334 NYSTATIN-TRIAMCINOLONE Inactive AZITHROMYCIN 250 MG TABS 2 po qd x 1 day, then 1 po qd x 4 days AZITHROMYCIN 250 MG TABS 6588853 AZITHROMYCIN Inactive AZITHROMYCIN 250 MG TABS 2 po qd x 1 day, then 1 po qd x 4 days AZITHROMYCIN 250 MG TABS 8070348 AZITHROMYCIN Inactive AZITHROMYCIN 250 MG TABS 2 po qd x 1 day, then 1 po qd x 4 days AZITHROMYCIN 250 MG TABS 0120087 AZITHROMYCIN Inactive Advance Directives Directive Description Start [...] Panel - Chemistry sodium, serum 141 mmol/L 911-971 3695/06/28 carbon dioxide, venous blood 31.0 mmol/L 21.0-32.0 [...] mg/g mg/g{creat} 0-29 sodium, serum 140 mmol/L 013-461 0877/07/17 potassium, serum 4.2 mmol/L 3.5-5.2 chloride, serum [...] 5.0-8.5 Encounters Code Encounter Date Provider Facility CPT-66207 Level 3 Est. Patient 15:14:31 STEAM BRUSH OPERATOR Piotr W Edi [facility] CPT-19738 Level 3 Est. Patient 09:20:13 STEAM BRUSH OPERATOR Piotr Daley [facility] CPT-52038 Level 3 Est. Patient 09:49:40 CDT Piotr Daley [facility] CPT-56971 Level 3 Est. Patient 16:28:11 CDT Piotr Daley [facility] CPT-86065 Level 3 Est. Patient 12:41:58 STEAM BRUSH OPERATOR Piotr Wilson Edi [facility] CPT-21700 Level 3 Est. Patient 09:21:24 CDT Piotr Daley [facility] CPT-87299 Level 3 Est. Patient 09:21:11 CDT Piotr Wilson Edi [facility] CPT-51402 Level 3 Est. Patient 11:16:29 STEAM BRUSH OPERATOR Piotr Daley [facility] CPT-07488 Level 3 Est. Patient 18:40:19 STEAM BRUSH OPERATOR Piotr Wilson Edi [facility] CPT-83196 Level 3 Est. Patient 19:30:50 CDT Piotr Wilson Edi [facility] CPT-35815 Level 3 Est. Patient 22:06:44 CDT Katrina Rinaldi MD [facility] CPT-62661 Level 3 Est. Patient 14:20:00 CDT Piotr Wilson Edi [facility] CPT-28413 Level 3 Est. Patient 14:15:22 STEAM BRUSH OPERATOR Piotr Daley [facility] CPT-22598 Level 3 Est. Patient 20:19:57 STEAM BRUSH OPERATOR Piotr Wilson Edi [facility] CPT-83764 Level 3 Est. Patient 16:44:32 CDT Piotr Daley [facility] CPT-09493 Level 3 Est. Patient 08:48:46 STEAM BRUSH OPERATOR Piotr Daley [facility] CPT-56109 Level 3 Est. Patient 21:01:21 CDT Piotr Daley DO [facility] Procedures Code Procedure Name Date Entry Date Standard Description CPT-74748 Thoracolumbar AP/Lat 15:19:19 STEAM BRUSH OPERATOR CPT-G0438 Initial Annual Wellness Exam 12:18:54 STEAM BRUSH OPERATOR CPT-30447 Knee 3V 09:57:38 CDT CPT-OV Office Visit 15:45:01 STEAM BRUSH OPERATOR CPT-81725 Abd compl w upright 17:10:25 CDT
--- OUTSIDE RECORDS SUMMARY | 2018-07-18 08:39 | XMS REPORT | Clinical Summary ---
Author Author Admin, [employer] Address Unknown Phone Unavailable Allergies, Adverse Reactions, [...] of prostate V10.46 Active Alina Meyers SUPERVISOR CLAIMS Personal history of malignant neoplasm of prostate Coronary artery disease 414.00 Active Alina Meyers SUPERVISOR CLAIMS Coronary atherosclerosis of unspecified type of vessel, [...] Insect bite 919.4 Active Nella Harris SUPERVISOR CLAIMS Insect bite, nonvenomous, of other, multiple, and unspecified sites, without mention of infection Pruritus 698.9 Active Nella Harris SUPERVISOR CLAIMS Unspecified pruritic disorder FLANK PAIN, RIGHT ICD-789.09 [...] mouth BID x10 days 10/01 DOXYCYCLINE HYCLATE 29922225725 No Longer Active Nella Steven SUPERVISOR CLAIMS Active WARFARIN SODIUM 5 MG TABS 1 tablet daily M-S, 1/2 tab on Heart WARFARIN SODIUM 71786740102 Active Nella Luquillo SUPERVISOR CLAIMS Active PROAIR HFA 108 (90 BASE) MCG/ACT AERS 1-2 puffs four times a day as needed ALBUTEROL SULFATE 18621852987 Active Matthew Rangel MD Active PREDNISONE 20 MG TAB 2 tabs daily for 3 days, 1 tab daily for 3 days, 1/2 tab daily for 2 days PREDNISONE 33978561403 No Longer Active Matthew Rangel MD Active TRAMADOL HCL 50 MG TABS 1 po tid with ES Tylenol TRAMADOL HCL 90620781943 No Longer Active Matthew Rangel MD Active GABAPENTIN 300 MG CAPS 1 po q hs for nerve pain GABAPENTIN 60420999136 No Longer Active Matthew Rangel MD Active PREDNISONE 20 MG TAB 2 tablets today, then 1 tablet days 2 through 4 PREDNISONE 04595175796 No Longer Active Piotr Daley DO Active AZITHROMYCIN 250 MG TABS 2 po qd x 1 day, then 1 po qd x 4 days AZITHROMYCIN 97920330139 No Longer Active Piotr Daley DO Active IBUPROFEN 800 MG TABS 1 tab every 8 hours as needed IBUPROFEN 56109466812 No Longer Active Piotr Daley DO Active LOMOTIL 2.5-0.025 MG TAB 1 to 2 four times a day as needed for diarrhea 10/13 DIPHENOXYLATE-ATROPINE 83174823236 No Longer Active Piotr Daley DO Active WARFARIN SODIUM 4 MG TABS 1 tab every evening WARFARIN SODIUM 36354723951 No Longer Active Piotr Daley DO Active PREDNISONE 20 MG TAB 1 tablet twice daily for 2 days, then 1 tablet once daily for 2 days PREDNISONE 50636761862 No Longer Active Piotr Daley DO Active PROMETHAZINE HCL 25 MG TABS 1 four times a day as needed for nausea/vomiting PROMETHAZINE HCL 32405349140 No Longer Active Piotr Daley DO Active TUSSIONEX PENNKINETIC ER 10-8 MG/5ML LQCR 5ml po q12hr PRN Cough HYDROCOD POLST-CHLORPHEN POLST 55513076716 No Longer Active Piotr Daley DO Active AZITHROMYCIN 250 MG TABS 2 po qd x 1 day, then 1 po qd x 4 days AZITHROMYCIN 74935778802 No Longer Active Piotr Daley DO Active AZITHROMYCIN 250 MG TABS 2 po qd x 1 day, then 1 po qd x 4 days AZITHROMYCIN 95242895501 No Longer Active Piotr Daley DO Active LISINOPRIL-HYDROCHLOROTHIAZIDE 10-12.5 MG TABS 1 tab by mouth daily LISINOPRIL-HYDROCHLOROTHIAZIDE 75204228779 Active Catalina Freitas Active LISINOPRIL 10 MG TABS 1/2-1 tab po every other day LISINOPRIL 35275495961 No Longer Active Piotr W Edi DO Active VENTOLIN HFA 108 (90 BASE) MCG/ACT AERS 2 puffs four times a day PRN cough ALBUTEROL SULFATE 99938847102 No Longer Active Piotr Daley DO Active NYSTATIN-TRIAMCINOLONE 118768-1.1 UNIT/GM-% CREA Apply to area BID NYSTATIN-TRIAMCINOLONE 90860757609 No Longer Active Alena Oswaldum AIRCRAFT INSTRUMENT TESTER Active PHISOHEX 3 % LIQD Use Directed HEXACHLOROPHENE 70773698342 No Longer Active Sandra [place] Active AZITHROMYCIN 250 MG TABS 2 po qd x 1 day, then 1 po qd x 4 days AZITHROMYCIN 27214953114 No Longer Active Katrina Rinaldi MD PhD Active AZITHROMYCIN 250 MG TABS 2 po qd x 1 day, then 1 po qd x 4 days AZITHROMYCIN 43683095358 No Longer Active Piotr Daley DO Active AZITHROMYCIN 500 MG SOLR 1 po q day AZITHROMYCIN 25326835315 No Longer Active Piotr Daley DO Active NYSTATIN-TRIAMCINOLONE 656091-9.1 UNIT/GM-% CREA apply bid 08/19 NYSTATIN-TRIAMCINOLONE 38930701101 No Longer Active Piotr Daley DO Active IBUPROFEN 800 MG TABS 1 po q 8 hours prn pain sparinly IBUPROFEN 79056214317 No Longer Active Piotr Daley DO Active VITAMIN D3 5000 UNIT CAPS 1 po daily CHOLECALCIFEROL 22851668256 Active Piotr Daley DO Active IBUPROFEN 800 MG TABS 1 po q 8 hours prn pain sparinly IBUPROFEN 800 MG TABS 544036 IBUPROFEN Inactive NYSTATIN-TRIAMCINOLONE 978409-7.1 UNIT/GM-% CREA apply bid 08/19 NYSTATIN-TRIAMCINOLONE 364474-3.1 UNIT/GM-% CREA 0345374 NYSTATIN- TRIAMCINOLONE Inactive AZITHROMYCIN 500 MG SOLR 1 po q day AZITHROMYCIN 500 MG SOLR 35679841130 AZITHROMYCIN Inactive VENTOLIN HFA 108 (90 BASE) MCG/ACT AERS 2 puffs four times a day PRN cough VENTOLIN HFA 108 (90 BASE) MCG/ACT AERS ALBUTEROL SULFATE Inactive LISINOPRIL 10 MG TABS 1/2-1 tab po every other day LISINOPRIL 10 MG TABS 520304 LISINOPRIL Inactive TUSSIONEX PENNKINETIC ER 10-8 MG/5ML LQCR 5ml po q12hr PRN Cough TUSSIONEX PENNKINETIC ER 10-8 MG/5ML LQCR HYDROCOD POLST- CHLORPHEN POLST Inactive PROMETHAZINE HCL 25 MG TABS 1 four times a day as needed for nausea/vomiting PROMETHAZINE HCL 25 MG TABS 386567 PROMETHAZINE HCL Inactive PREDNISONE 20 MG TAB 1 tablet twice daily for 2 days, then 1 tablet once daily for 2 days PREDNISONE 20 MG TAB 501327 PREDNISONE Inactive WARFARIN SODIUM 4 MG TABS 1 tab every evening WARFARIN SODIUM 4 MG TABS 446885 WARFARIN SODIUM Inactive LOMOTIL 2.5-0.025 MG TAB 1 to 2 four times a day as needed for diarrhea 10/13 LOMOTIL 2.5-0.025 MG TAB 0153562 DIPHENOXYLATE-ATROPINE Inactive IBUPROFEN 800 MG TABS 1 tab every 8 hours as needed IBUPROFEN 800 MG TABS 181763 IBUPROFEN Inactive PREDNISONE 20 MG TAB 2 tablets today, then 1 tablet days 2 through 4 PREDNISONE 20 MG TAB 812926 PREDNISONE Inactive GABAPENTIN 300 MG CAPS 1 po q hs for nerve pain GABAPENTIN 300 MG CAPS 197804 GABAPENTIN Inactive TRAMADOL HCL 50 MG TABS 1 po tid with ES Tylenol TRAMADOL HCL 50 MG TABS 464580 TRAMADOL HCL Inactive AZITHROMYCIN 250 MG TABS 2 po qd x 1 day, then 1 po qd x 4 days AZITHROMYCIN 250 MG TABS 9972591 AZITHROMYCIN Inactive AZITHROMYCIN 250 MG TABS 2 po qd x 1 day, then 1 po qd x 4 days AZITHROMYCIN 250 MG TABS 6589077 AZITHROMYCIN Inactive NYSTATIN-TRIAMCINOLONE 455910-7.1 UNIT/GM-% CREA Apply to area BID NYSTATIN-TRIAMCINOLONE 044526-6.1 UNIT/GM-% CREA 8170897 NYSTATIN-TRIAMCINOLONE Inactive AZITHROMYCIN 250 MG TABS 2 po qd x 1 day, then 1 po qd x 4 days AZITHROMYCIN 250 MG TABS 9589448 AZITHROMYCIN Inactive AZITHROMYCIN 250 MG TABS 2 po qd x 1 day, then 1 po qd x 4 days AZITHROMYCIN 250 MG TABS 5417637 AZITHROMYCIN Inactive AZITHROMYCIN 250 MG TABS 2 po qd x 1 day, then 1 po qd x 4 days AZITHROMYCIN 250 MG TABS 3819346 AZITHROMYCIN Inactive PREDNISONE 20 MG TAB 2 tabs daily for 3 days, 1 tab daily for 3 days, 1/2 tab daily for 2 days PREDNISONE 20 MG TAB 428108 PREDNISONE Inactive DOXYCYCLINE HYCLATE 100 MG CAP 1 cap by mouth BID x10 days 10/01 DOXYCYCLINE HYCLATE 100 MG CAP 1339490 DOXYCYCLINE HYCLATE Inactive Advance Directives Directive Description [...] Panel - Chemistry sodium, serum 141 mmol/L 882-872 4328/01/24 potassium, serum 4.3 mmol/L 3.5-5.2 chloride, serum [...] % 11.0-15.0 platelet count 172 THOUSAND/UL 10*3/mm3 280-800 9359/04/12 mean platelet volume 8.6 fL 7.5-12.5 Lab [...] ratio (INR) 3.3 1.0-3.5 prothrombin time (patient) 20.8 SECS s 11.1-13.4 international normalized ratio (INR) 2.5 1.0-3.5 prothrombin time (patient) 19.8 SECS s 11.1-13.4 international normalized ratio (INR) 2.3 1.0-3.5 prothrombin time (patient) 23.8 SECS s 11.1-13.4 international normalized ratio (INR) 3.2 1.0-3.5 international normalized ratio (INR) 4.2 1.0-3.5 prothrombin time (patient) 27.8 SECS s 11.1-13.4 international normalized ratio (INR) 3.0 1.0-3.5 prothrombin time (patient) 23.1 SECS s 11.1-13.4 Lab Report: Prothrombin Time Hemochron - Coagulation prothrombin time (patient) 33.0 SECS s 18.9-24.9 Encounters Code Encounter Date Provider Facility CPT-14050 Level 3 Est. Patient 17:10:19 CDT Nella Harris ARISTIDES [facility] CPT-41267 Level 3 Est. Patient 10:48:17 RESIDENT INTERN Matthew Rangel MD [facility] CPT-92582 Level 4 Est. Patient 17:15:07 RESIDENT INTERN Piotr Katie Daley [facility] CPT-83170 Level 3 Est. Patient 12:46:13 RESIDENT INTERN Piotr Wilson [facility] CPT-04047 Level 3 Est. Patient 15:14:31 RESIDENT INTERN Piotr Daley [facility] CPT-77316 Level 3 Est. Patient 09:20:13 RESIDENT INTERN Piotr Wilson Edi [facility] CPT-21515 Level 3 Est. Patient 09:49:40 CDT Piotr Wilson [facility] CPT-98813 Level 3 Est. Patient 16:28:11 CDT Piotr Katie Daley [facility] CPT-92091 Level 3 Est. Patient 12:41:58 RESIDENT INTERN Piotr Katie Edi [facility] CPT-99074 Level 3 Est. Patient 09:21:24 CDT Piotr Daley [facility] CPT-67996 Level 3 Est. Patient 09:21:11 CDT Piotr Katie [facility] CPT-21129 Level 3 Est. Patient 11:16:29 RESIDENT INTERN Piotr Daley [facility] CPT-04491 Level 3 Est. Patient 18:40:19 RESIDENT INTERN Piotr Daley [facility] CPT-77180 Level 3 Est. Patient 19:30:50 CDT Piotr Wilson [facility] CPT-67766 Level 3 Est. Patient 22:06:44 CDT Katrina Rinaldi MD PhD [facility] CPT-77857 Level 3 Est. Patient 14:20:00 CDT Piotr Daley [facility] CPT-40299 Level 3 Est. Patient 14:15:22 RESIDENT INTERN Piotr Daley [facility] CPT-42183 Level 3 Est. Patient 20:19:57 RESIDENT INTERN Piotr Daley [facility] CPT-07252 Level 3 Est. Patient 16:44:32 CDT Piotr Daley [facility] CPT-86329 Level 3 Est. Patient 08:48:46 RESIDENT INTERN Piotr Daley [facility] CPT-59724 Level 3 Est. Patient 21:01:21 CDT Piotr Daley [facility] Procedures Code Procedure Name Date Entry Date Standard Description CPT-54539 BMP - LAB USE ONLY 17:19:11 RESIDENT INTERN CPT-98207 PT/INR - LAB USE ONLY 17:19:10 RESIDENT INTERN CPT-55159 Venipuncture Draw Fee 17:19:10 RESIDENT INTERN CPT-72416 PT/INR - LAB USE ONLY 08:12:25 RESIDENT INTERN CPT-00880 Venipuncture Draw Fee 08:12:24 RESIDENT INTERN CPT-08081 Venipuncture Draw Fee 11:31:07 RESIDENT INTERN CPT-69817 TPSA - LAB USE ONLY 11:31:07 RESIDENT INTERN CPT-20582 PT/INR - LAB USE ONLY 11:31:07 RESIDENT INTERN CPT-G0439 [facility] Annual Wellness Exam 09:59:29 RESIDENT INTERN CPT-62317 Creatinine - LAB USE ONLY 14:37:55 RESIDENT INTERN CPT-01604 PT/INR - LAB USE ONLY 14:37:55 RESIDENT INTERN CPT-14363 Venipuncture Draw Fee 14:37:55 RESIDENT INTERN CPT-92477 LS spine comp w obliques - XRAY USE ONLY 12:59:25 RESIDENT INTERN CPT-49351 PT/INR - LAB USE ONLY 13:49:20 CDT CPT-06945 Venipuncture Draw Fee 13:49:19 CDT CPT-94836 PT/INR - LAB USE ONLY 15:48:49 CDT CPT-31228 Venipuncture Draw Fee 15:48:49 CDT CPT-54541 Venipuncture Draw Fee 11:31:59 CDT CPT-69499 PT/INR - LAB USE ONLY 11:31:59 CDT CPT-69908 Venipuncture Draw Fee 13:29:15 CDT CPT-96841 Thoracolumbar AP/Lat 15:19:19 RESIDENT INTERN CPT-G0438 Initial Annual Wellness Exam 12:18:54 RESIDENT INTERN CPT-05832 Knee 3V 09:57:38 CDT CPT-OV Office Visit 15:45:01 RESIDENT INTERN CPT-29277 Abd compl w upright 17:10:25 CDT
--- OUTSIDE RECORDS SUMMARY | 2018-07-18 08:40 | XMS REPORT | Clinical Summary ---
Author Author Admin, [employer] Address Unknown Phone Unavailable Allergies, Adverse Reactions, [...] Coronary atherosclerosis of unspecified type of vessel, morongo or graft Back pain, thoracic region, left [...] po q hs for nerve pain GABAPENTIN 76177549435 Active Piotr Daley DO Active WARFARIN SODIUM 5 MG TABS 1 tablet daily WARFARIN SODIUM 49483604766 Active Simi Meyers Active TRAMADOL HCL 50 MG TABS 1 po tid with ES Tylenol TRAMADOL HCL 31241513626 Active Piotr Daley DO Active PREDNISONE 20 MG TAB 2 tablets today, then 1 tablet days 2 through 4 PREDNISONE 17074543692 No Longer Active Piotr Daley DO Active AZITHROMYCIN 250 MG TABS 2 po qd x 1 day, then 1 po qd x 4 days AZITHROMYCIN 03680282312 No Longer Active Piotr Daley DO Active IBUPROFEN 800 MG TABS 1 tab every 8 hours as needed IBUPROFEN 31455245108 No Longer Active Piotr Daley DO Active LOMOTIL 2.5-0.025 MG TAB 1 to 2 four times a day as needed for diarrhea 10/13 DIPHENOXYLATE-ATROPINE 07767097763 No Longer Active Piotr Daley DO Active WARFARIN SODIUM 4 MG TABS 1 tab every evening WARFARIN SODIUM 30886725516 No Longer Active Piotr Daley DO Active PREDNISONE 20 MG TAB 1 tablet twice daily for 2 days, then 1 tablet once daily for 2 days PREDNISONE 95743487295 No Longer Active Piotr Daley DO Active PROMETHAZINE HCL 25 MG TABS 1 four times a day as needed for nausea/vomiting PROMETHAZINE HCL 41032893497 No Longer Active Piotr Daley DO Active TUSSIONEX PENNKINETIC ER 10-8 MG/5ML LQCR 5ml po q12hr PRN Cough HYDROCOD POLST-CHLORPHEN POLST 91386143373 No Longer Active Piotr Daley DO Active AZITHROMYCIN 250 MG TABS 2 po qd x 1 day, then 1 po qd x 4 days AZITHROMYCIN 40849282868 No Longer Active Piotr Daley DO Active AZITHROMYCIN 250 MG TABS 2 po qd x 1 day, then 1 po qd x 4 days AZITHROMYCIN 71254287381 No Longer Active Piotr Daley DO Active LISINOPRIL-HYDROCHLOROTHIAZIDE 10-12.5 MG TABS 1 tab by mouth daily LISINOPRIL-HYDROCHLOROTHIAZIDE 44664444373 Active Hilary Ma MA Active LISINOPRIL 10 MG TABS 1/2-1 tab po every other day LISINOPRIL 94947070001 No Longer Active Piotr Daley DO Active VENTOLIN HFA 108 (90 BASE) MCG/ACT AERS 2 puffs four times a day PRN cough ALBUTEROL SULFATE 66396981723 No Longer Active Piotr Daley DO Active NYSTATIN-TRIAMCINOLONE 402128-0.1 UNIT/GM-% CREA Apply to area BID NYSTATIN-TRIAMCINOLONE 87450604264 No Longer Active Alena Chavira DRESS SHOE INSPECTOR Active PHISOHEX 3 % LIQD Use Directed HEXACHLOROPHENE 16104373091 No Longer Active Sandra Herrin Active AZITHROMYCIN 250 MG TABS 2 po qd x 1 day, then 1 po qd x 4 days AZITHROMYCIN 43275716833 No Longer Active Katrina Rinaldi MD PhD Active AZITHROMYCIN 250 MG TABS 2 po qd x 1 day, then 1 po qd x 4 days AZITHROMYCIN 14829414699 No Longer Active Piotr Daley DO Active AZITHROMYCIN 500 MG SOLR 1 po q day AZITHROMYCIN 97660999351 No Longer Active Piotr Daley DO Active NYSTATIN-TRIAMCINOLONE 871901-7.1 UNIT/GM-% CREA apply bid 08/19 NYSTATIN-TRIAMCINOLONE 42828610699 No Longer Active Piotr Daley DO Active IBUPROFEN 800 MG TABS 1 po q 8 hours prn pain sparinly IBUPROFEN 00046903364 No Longer Active Piotr Daley DO Active VITAMIN D3 5000 UNIT CAPS 1 po daily CHOLECALCIFEROL 19179008740 Active Piotr Daley DO Active IBUPROFEN 800 MG TABS 1 po q 8 hours prn pain sparinly IBUPROFEN 800 MG TABS 750559 IBUPROFEN Inactive NYSTATIN-TRIAMCINOLONE 175016-9.1 UNIT/GM-% CREA apply bid 08/19 NYSTATIN-TRIAMCINOLONE 933297-9.1 UNIT/GM-% CREA 3682318 NYSTATIN- TRIAMCINOLONE Inactive AZITHROMYCIN 500 MG SOLR 1 po q day AZITHROMYCIN 500 MG SOLR 25935906005 AZITHROMYCIN Inactive VENTOLIN HFA 108 (90 BASE) MCG/ACT AERS 2 puffs four times a day PRN cough VENTOLIN HFA 108 (90 BASE) MCG/ACT AERS ALBUTEROL SULFATE Inactive LISINOPRIL 10 MG TABS 1/2-1 tab po every other day LISINOPRIL 10 MG TABS 494685 LISINOPRIL Inactive TUSSIONEX PENNKINETIC ER 10-8 MG/5ML LQCR 5ml po q12hr PRN Cough TUSSIONEX PENNKINETIC ER 10-8 MG/5ML LQCR HYDROCOD POLST- CHLORPHEN POLST Inactive PROMETHAZINE HCL 25 MG TABS 1 four times a day as needed for nausea/vomiting PROMETHAZINE HCL 25 MG TABS 499257 PROMETHAZINE HCL Inactive PREDNISONE 20 MG TAB 1 tablet twice daily for 2 days, then 1 tablet once daily for 2 days PREDNISONE 20 MG TAB 514824 PREDNISONE Inactive WARFARIN SODIUM 4 MG TABS 1 tab every evening WARFARIN SODIUM 4 MG TABS 412397 WARFARIN SODIUM Inactive LOMOTIL 2.5-0.025 MG TAB 1 to 2 four times a day as needed for diarrhea 10/13 LOMOTIL 2.5-0.025 MG TAB 8442885 DIPHENOXYLATE-ATROPINE Inactive IBUPROFEN 800 MG TABS 1 tab every 8 hours as needed IBUPROFEN 800 MG TABS 219899 IBUPROFEN Inactive PREDNISONE 20 MG TAB 2 tablets today, then 1 tablet days 2 through 4 PREDNISONE 20 MG TAB 955022 PREDNISONE Inactive AZITHROMYCIN 250 MG TABS 2 po qd x 1 day, then 1 po qd x 4 days AZITHROMYCIN 250 MG TABS 8037033 AZITHROMYCIN Inactive AZITHROMYCIN 250 MG TABS 2 po qd x 1 day, then 1 po qd x 4 days AZITHROMYCIN 250 MG TABS 2074715 AZITHROMYCIN Inactive NYSTATIN-TRIAMCINOLONE 178748-7.1 UNIT/GM-% CREA Apply to area BID NYSTATIN-TRIAMCINOLONE 615631-4.1 UNIT/GM-% CREA 7124818 NYSTATIN-TRIAMCINOLONE Inactive AZITHROMYCIN 250 MG TABS 2 po qd x 1 day, then 1 po qd x 4 days AZITHROMYCIN 250 MG TABS 5554640 AZITHROMYCIN Inactive AZITHROMYCIN 250 MG TABS 2 po qd x 1 day, then 1 po qd x 4 days AZITHROMYCIN 250 MG TABS 3066315 AZITHROMYCIN Inactive AZITHROMYCIN 250 MG TABS 2 po qd x 1 day, then 1 po qd x 4 days AZITHROMYCIN 250 MG TABS 6091429 AZITHROMYCIN Inactive Advance Directives Directive Description Start [...] Panel - Chemistry sodium, serum 141 mmol/L 668-370 0696/06/28 carbon dioxide, venous blood 31.0 mmol/L 21.0-32.0 [...] Negative Encounters Code Encounter Date Provider Facility CPT-25047 Level 4 Est. Patient 17:15:07 GRADUATE RECRUITER Piotr Daley [facility] CPT-94166 Level 3 Est. Patient 12:46:13 GRADUATE RECRUITER Piotr Daley [facility] CPT-13930 Level 3 Est. Patient 15:14:31 GRADUATE RECRUITER Piotr Daley [facility] CPT-46592 Level 3 Est. Patient 09:20:13 GRADUATE RECRUITER Piotr Daley [facility] CPT-44710 Level 3 Est. Patient 09:49:40 CDT Piotr Daley [facility] CPT-73489 Level 3 Est. Patient 16:28:11 CDT Piotr Daley [facility] CPT-28229 Level 3 Est. Patient 12:41:58 GRADUATE RECRUITER Piotr Daley [facility] CPT-01354 Level 3 Est. Patient 09:21:24 CDT Piotr Daley [facility] CPT-41998 Level 3 Est. Patient 09:21:11 CDT Piotr Daley [facility] CPT-47699 Level 3 Est. Patient 11:16:29 GRADUATE RECRUITER Piotr Daley [facility] CPT-40852 Level 3 Est. Patient 18:40:19 GRADUATE RECRUITER Piotr Daley [facility] CPT-13674 Level 3 Est. Patient 19:30:50 CDT Piotr Daley [facility] CPT-22730 Level 3 Est. Patient 22:06:44 CDT Katrina Rinaldi MD PhD [facility] CPT-60585 Level 3 Est. Patient 14:20:00 CDT Piotr Daley [facility] CPT-54902 Level 3 Est. Patient 14:15:22 GRADUATE RECRUITER Piotr Daley [facility] CPT-15894 Level 3 Est. Patient 20:19:57 GRADUATE RECRUITER Piotr Daley [facility] CPT-55584 Level 3 Est. Patient 16:44:32 CDT Piotr Daley [facility] CPT-71631 Level 3 Est. Patient 08:48:46 GRADUATE RECRUITER Piotr Daley [facility] CPT-78371 Level 3 Est. Patient 21:01:21 CDT Piotr Daley [facility] Procedures Code Procedure Name Date Entry Date Standard Description CPT-27002 Venipuncture Draw Fee 11:31:07 GRADUATE RECRUITER CPT-95992 TPSA - LAB USE ONLY 11:31:07 GRADUATE RECRUITER CPT-27291 PT/INR - LAB USE ONLY 11:31:07 GRADUATE RECRUITER CPT-G0439 [facility] Annual Wellness Exam 09:59:29 GRADUATE RECRUITER CPT-32343 Creatinine - LAB USE ONLY 14:37:55 GRADUATE RECRUITER CPT-97665 PT/INR - LAB USE ONLY 14:37:55 GRADUATE RECRUITER CPT-00505 Venipuncture Draw Fee 14:37:55 GRADUATE RECRUITER CPT-05362 LS spine comp w obliques - XRAY USE ONLY 12:59:25 GRADUATE RECRUITER CPT-33422 PT/INR - LAB USE ONLY 13:49:20 CDT CPT-27003 Venipuncture Draw Fee 13:49:19 CDT CPT-32972 PT/INR - LAB USE ONLY 15:48:49 CDT CPT-07674 Venipuncture Draw Fee 15:48:49 CDT CPT-79962 Venipuncture Draw Fee 11:31:59 CDT CPT-79188 PT/INR - LAB USE ONLY 11:31:59 CDT CPT-78448 Venipuncture Draw Fee 13:29:15 CDT CPT-21332 Thoracolumbar AP/Lat 15:19:19 GRADUATE RECRUITER CPT-G0438 Initial Annual Wellness Exam 12:18:54 GRADUATE RECRUITER CPT-17872 Knee 3V 09:57:38 CDT CPT-OV Office Visit 15:45:01 GRADUATE RECRUITER CPT-52041 Abd compl w upright 17:10:25 CDT
--- OUTSIDE RECORDS SUMMARY | 2018-07-18 08:41 | XMS REPORT | Clinical Summary ---
Author Author Admin, YONG Organization [facility] Address Unknown Phone Unavailable Allergies, [...] for Saturday and 04/09 tablet. WARFARIN SODIUM [id number] Active Piotr Daley DO Active PREDNISONE 20 MG TAB 2 tablets today, then 1 tablet days 2 through 4 PREDNISONE 86155169612 No Longer Active Piotr Daley DO Active AZITHROMYCIN 250 MG TABS 2 po qd x 1 day, then 1 po qd x 4 days AZITHROMYCIN 20416577294 No Longer Active Piotr Daley DO Active IBUPROFEN 800 MG TABS 1 tab every 8 hours as needed IBUPROFEN 67963789094 No Longer Active Piotr Daley DO Active LOMOTIL 2.5-0.025 MG TAB 1 to 2 four times a day as needed for diarrhea 10/13 DIPHENOXYLATE-ATROPINE 48366440669 No Longer Active Piotr Daley DO Active WARFARIN SODIUM 4 MG TABS 1 tab every evening WARFARIN SODIUM 31064189340 No Longer Active Piotr Daley DO Active PREDNISONE 20 MG TAB 1 tablet twice daily for 2 days, then 1 tablet once daily for 2 days PREDNISONE 28725941411 No Longer Active Piotr Daley DO Active PROMETHAZINE HCL 25 MG TABS 1 four times a day as needed for nausea/vomiting PROMETHAZINE HCL 23067819752 No Longer Active Piotr Daley DO Active TUSSIONEX PENNKINETIC ER 10-8 MG/5ML LQCR 5ml po q12hr PRN Cough HYDROCOD POLST-CHLORPHEN POLST 58333897258 No Longer Active Piotr Daley DO Active AZITHROMYCIN 250 MG TABS 2 po qd x 1 day, then 1 po qd x 4 days AZITHROMYCIN 38968814183 No Longer Active Piotr Daley DO Active AZITHROMYCIN 250 MG TABS 2 po qd x 1 day, then 1 po qd x 4 days AZITHROMYCIN 08416020202 No Longer Active Piotr Daley DO Active LISINOPRIL-HYDROCHLOROTHIAZIDE 10-12.5 MG TABS 1 tab by mouth daily LISINOPRIL-HYDROCHLOROTHIAZIDE 00756615478 Active Piotr Daley DO Active LISINOPRIL 10 MG TABS 1/2-1 tab po every other day LISINOPRIL 91887175344 No Longer Active Piotr Daley DO Active VENTOLIN HFA 108 (90 BASE) MCG/ACT AERS 2 puffs four times a day PRN cough ALBUTEROL SULFATE 38070471061 No Longer Active Piotr Daley DO Active NYSTATIN-TRIAMCINOLONE 025336-2.1 UNIT/GM-% CREA Apply to area BID NYSTATIN-TRIAMCINOLONE 91253246885 No Longer Active Alena Chavira [employer] SUPERVISOR Active PHISOHEX 3 % LIQD Use Directed HEXACHLOROPHENE 52570841835 No Longer Active Sandra Wheatland Active AZITHROMYCIN 250 MG TABS 2 po qd x 1 day, then 1 po qd x 4 days AZITHROMYCIN 27668535466 No Longer Active Katrina Rinaldi MD PhD Active AZITHROMYCIN 250 MG TABS 2 po qd x 1 day, then 1 po qd x 4 days AZITHROMYCIN 29034857147 No Longer Active Piotr Daley DO Active AZITHROMYCIN 500 MG SOLR 1 po q day AZITHROMYCIN 94341330291 No Longer Active Piotr Daley DO Active NYSTATIN-TRIAMCINOLONE 551370-0.1 UNIT/GM-% CREA apply bid 08/19 NYSTATIN-TRIAMCINOLONE 63266309331 No Longer Active Piotr Daley DO Active IBUPROFEN 800 MG TABS 1 po q 8 hours prn pain sparinly IBUPROFEN 19817205303 No Longer Active Piotr Daley DO Active VITAMIN D3 5000 UNIT CAPS 1 po daily CHOLECALCIFEROL 82805371211 Active Piotr Daley DO Active IBUPROFEN 800 MG TABS 1 po q 8 hours prn pain sparinly IBUPROFEN 800 MG TABS 736869 IBUPROFEN Inactive NYSTATIN-TRIAMCINOLONE 251926-7.1 UNIT/GM-% CREA apply bid 08/19 NYSTATIN-TRIAMCINOLONE 621764-6.1 UNIT/GM-% CREA 8265917 NYSTATIN- TRIAMCINOLONE Inactive AZITHROMYCIN 500 MG SOLR 1 po q day AZITHROMYCIN 500 MG SOLR 652338 AZITHROMYCIN Inactive VENTOLIN HFA 108 (90 BASE) MCG/ACT AERS 2 puffs four times a day PRN cough VENTOLIN HFA 108 (90 BASE) MCG/ACT AERS ALBUTEROL SULFATE Inactive LISINOPRIL 10 MG TABS 1/2-1 tab po every other day LISINOPRIL 10 MG TABS 388321 LISINOPRIL Inactive TUSSIONEX PENNKINETIC ER 10-8 MG/5ML LQCR 5ml po q12hr PRN Cough TUSSIONEX PENNKINETIC ER 10-8 MG/5ML LQCR HYDROCOD POLST- CHLORPHEN POLST Inactive PROMETHAZINE HCL 25 MG TABS 1 four times a day as needed for nausea/vomiting PROMETHAZINE HCL 25 MG TABS 200744 PROMETHAZINE HCL Inactive PREDNISONE 20 MG TAB 1 tablet twice daily for 2 days, then 1 tablet once daily for 2 days PREDNISONE 20 MG TAB 229514 PREDNISONE Inactive WARFARIN SODIUM 4 MG TABS 1 tab every evening WARFARIN SODIUM 4 MG TABS 565521 WARFARIN SODIUM Inactive LOMOTIL 2.5-0.025 MG TAB 1 to 2 four times a day as needed for diarrhea 10/13 LOMOTIL 2.5-0.025 MG TAB 5393184 DIPHENOXYLATE-ATROPINE Inactive IBUPROFEN 800 MG TABS 1 tab every 8 hours as needed IBUPROFEN 800 MG TABS 277102 IBUPROFEN Inactive PREDNISONE 20 MG TAB 2 tablets today, then 1 tablet days 2 through 4 PREDNISONE 20 MG TAB 061807 PREDNISONE Inactive AZITHROMYCIN 250 MG TABS 2 po qd x 1 day, then 1 po qd x 4 days AZITHROMYCIN 250 MG TABS 5766631 AZITHROMYCIN Inactive AZITHROMYCIN 250 MG TABS 2 po qd x 1 day, then 1 po qd x 4 days AZITHROMYCIN 250 MG TABS 6948529 AZITHROMYCIN Inactive NYSTATIN-TRIAMCINOLONE 002774-3.1 UNIT/GM-% CREA Apply to area BID NYSTATIN-TRIAMCINOLONE 563406-1.1 UNIT/GM-% CREA 7635169 NYSTATIN-TRIAMCINOLONE Inactive AZITHROMYCIN 250 MG TABS 2 po qd x 1 day, then 1 po qd x 4 days AZITHROMYCIN 250 MG TABS 6189510 AZITHROMYCIN Inactive AZITHROMYCIN 250 MG TABS 2 po qd x 1 day, then 1 po qd x 4 days AZITHROMYCIN 250 MG TABS 8566484 AZITHROMYCIN Inactive AZITHROMYCIN 250 MG TABS 2 po qd x 1 day, then 1 po qd x 4 days AZITHROMYCIN 250 MG TABS 7711160 AZITHROMYCIN Inactive Vital Signs Date Name Value [...] mg/g mg/g{creat} 0-29 sodium, serum 140 mmol/L 629-135 4482/07/17 potassium, serum 4.2 mmol/L 3.5-5.2 chloride, serum [...] ... - Chemistry sodium, serum 142 mmol/L 818-313 3149/12/01 potassium, serum 4.7 mmol/L 3.5-5.2 chloride, serum [...] 142-424 Encounters Code Encounter Date Provider Facility CPT-36126 Level 3 Est. Patient 09:49:40 CDT Piotr Daley [facility] CPT-37039 Level 3 Est. Patient 16:28:11 CDT Piotr Daley [facility] CPT-75229 Level 3 Est. Patient 12:41:58 CIRCUIT WALKER Piotr Daley [facility] CPT-01181 Level 3 Est. Patient 09:21:24 CDT Piotr Daley [facility] CPT-77213 Level 3 Est. Patient 09:21:11 CDT Piotr Daley [facility] CPT-20459 Level 3 Est. Patient 11:16:29 CIRCUIT WALKER Piotr Daley [facility] CPT-24970 Level 3 Est. Patient 18:40:19 CIRCUIT WALKER Piotr Daley [facility] CPT-88181 Level 3 Est. Patient 19:30:50 CDT Piotr Daley [facility] CPT-73876 Level 3 Est. Patient 22:06:44 CDT Katrina Rinaldi MD PhD [facility] CPT-29243 Level 3 Est. Patient 14:20:00 CDT Piotr Daley [facility] CPT-79767 Level 3 Est. Patient 14:15:22 CIRCUIT WALKER Piotr Daley [facility] CPT-16321 Level 3 Est. Patient 20:19:57 CIRCUIT WALKER Piotr Wilson [facility] CPT-45632 Level 3 Est. Patient 16:44:32 CDT Piotr Daley [facility] CPT-96224 Level 3 Est. Patient 08:48:46 CIRCUIT WALKER Piotr Wilson [facility] CPT-92257 Level 3 Est. Patient 21:01:21 CDT Piotr Wilson [facility] Procedures Code Procedure Name Date Entry Date Standard Description CPT-29453 Knee 3V 09:57:38 CDT CPT-OV Office Visit 15:45:01 CIRCUIT WALKER CPT-76198 Abd compl w upright 17:10:25 CDT
--- OUTSIDE RECORDS SUMMARY | 2018-07-18 08:41 | XMS REPORT | Clinical Summary ---
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 Active Alina Meyers [facility] DIRECTOR Personal history of malignant neoplasm of [...] THROMBOPHLEBITIS, LEG, 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 Inactive Sirisha Chen AUDIT ASSOCIATE DEEP VENOUS THROMBOPHLEBITIS, LEG, 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 Inactive Sirisha Chen AUDIT ASSOCIATE Seborrheic keratosis ICD-702.19 Inactive Sirisha Chen AUDIT ASSOCIATE Bronchitis-Acute ICD-466.0 Inactive Piotr Daley DO Leg pain, right ICD-729.5 Inactive Sirisha Chen AUDIT ASSOCIATE Right leg pain ICD-729.5 Inactive Sirisha Chen AUDIT ASSOCIATE Bronchitis-Acute ICD-466.0 Inactive Sirisha Chen AUDIT ASSOCIATE Knee pain, left ICD-719.46 Inactive Sirisha Chen AUDIT ASSOCIATE Actinic keratoses ICD-702.0 Inactive Sirisha Chen AUDIT ASSOCIATE Back pain, thoracic region, left ICD-724.1 Inactive Piotr Daley DO Thoracic back pain ICD-724.5 Inactive Sirisha Chen AUDIT ASSOCIATE Back pain lumbar ICD-724.2 Inactive Sirisha Chen AUDIT ASSOCIATE Insect bite ICD-919.4 Inactive Sirisha Chen AUDIT ASSOCIATE Pruritus ICD-698.9 Inactive Sirisha Chen AUDIT ASSOCIATE 04/09 Medication List Medication Instructions Start Date Stop Date Generic Name NDC Status Provider Patient Instruction WARFARIN SODIUM 5 MG ORAL TABLET 1 tablet daily M, T, T, F, Sa, 1/2 tab on W, Heart WARFARIN SODIUM 42475270855 Active Sirisha Gustavo LOO Active TESSALON PERLES 100 MG ORAL CAPSULE 1-2 tablet by mouth 3 times daily 04/16 BENZONATATE 09650003714 Active Piotr Daley DO Active PREDNISONE 10 MG ORAL TABLET 1 tablet by mouth daily PREDNISONE 22332224004 Active Piotr Daley DO Active PREDNISONE 20 MG ORAL TABLET two tabs by mouth today, then one tab by mouth days two and three PREDNISONE 95909767603 No Longer Active Piotr Daley DO Active CYCLOBENZAPRINE HCL 10 MG ORAL TABLET 1 tablet by mouth three times daily as needed for muscle spasm/pain CYCLOBENZAPRINE HCL 57514294858 Active Piotr Daley DO Active ZITHROMAX 250 MG ORAL TABLET Take two (2 ) tablets day one, then one (1) tablet a day for four (4) more days AZITHROMYCIN 01483182584 No Longer Active Piotr Daley DO Active PROAIR HFA 108 (90 BASE) MCG/ACT INHALATION AEROSOL SOLUTION 1-2 puffs four times a day as needed ALBUTEROL SULFATE 98276036810 No Longer Active Emelyn Norris Active DOXYCYCLINE HYCLATE 100 MG ORAL CAPSULE 1 cap by mouth BID x10 days DOXYCYCLINE HYCLATE 70090333598 No Longer Active Nella Harris APRN Active PREDNISONE 20 MG ORAL TABLET 2 tabs daily for 3 days, 1 tab daily for 3 days, 1/2 tab daily for 2 days PREDNISONE 67768416714 No Longer Active Matthew Rangel MD Active TRAMADOL HCL 50 MG ORAL TABLET 1 po tid with ES Tylenol TRAMADOL HCL 26002347326 No Longer Active Matthew Rangel MD Active GABAPENTIN 300 MG ORAL CAPSULE 1 po q hs for nerve pain GABAPENTIN 15212822507 No Longer Active Matthew Rangel MD Active PREDNISONE 20 MG ORAL TABLET 2 tablets today, then 1 tablet days 2 through 4 PREDNISONE 60118013227 No Longer Active Piotr Daley DO Active AZITHROMYCIN 250 MG ORAL TABLET 2 po qd x 1 day, then 1 po qd x 4 days 07/12 AZITHROMYCIN 82171633447 No Longer Active Piotr Daley DO Active IBUPROFEN 800 MG ORAL TABLET 1 tab every 8 hours as needed 07/12 IBUPROFEN 64391940483 No Longer Active Piotr Daley DO Active LOMOTIL 2.5-0.025 MG ORAL TABLET 1 to 2 four times a day as needed for diarrhea DIPHENOXYLATE-ATROPINE 88660518967 No Longer Active Piotr Daley DO Active WARFARIN SODIUM 4 MG ORAL TABLET 1 tab every evening WARFARIN SODIUM 91951640865 No Longer Active Piotr Daley DO Active PREDNISONE 20 MG ORAL TABLET 1 tablet twice daily for 2 days, then 1 tablet once daily for 2 days PREDNISONE 44063809162 No Longer Active Piotr Daley DO Active PROMETHAZINE HCL 25 MG ORAL TABLET 1 four times a day as needed for nausea/ vomiting PROMETHAZINE HCL 88461194975 No Longer Active Piotr Daley DO Active TUSSIONEX PENNKINETIC ER 10-8 MG/5ML ORAL SUSPENSION EXTENDED RELEASE 5ml po q12hr PRN Cough HYDROCOD POLST-CHLORPHEN POLST 12398049510 No Longer Active Piotr Daley DO Active AZITHROMYCIN 250 MG ORAL TABLET 2 po qd x 1 day, then 1 po qd x 4 days 10/13 AZITHROMYCIN 81322429580 No Longer Active Piotr Daley DO Active AZITHROMYCIN 250 MG ORAL TABLET 2 po qd x 1 day, then 1 po qd x 4 days 05/07 AZITHROMYCIN 84013226563 No Longer Active Piotr Daley DO Active LISINOPRIL-HYDROCHLOROTHIAZIDE 10-12.5 MG ORAL TABLET 1 tab by mouth daily LISINOPRIL-HYDROCHLOROTHIAZIDE 07905211630 Active Piotr Daley DO Active LISINOPRIL 10 MG ORAL TABLET 1/2-1 tab po every other day LISINOPRIL 11370347206 No Longer Active Piotr Daley DO Active VENTOLIN HFA 108 (90 Base) MCG/ACT INHALATION AEROSOL SOLUTION 2 puffs four times a day PRN cough ALBUTEROL SULFATE 88000994821 No Longer Active Piotr Daley DO Active NYSTATIN-TRIAMCINOLONE 893031-4.1 UNIT/GM-% EXTERNAL CREAM Apply to area BID NYSTATIN-TRIAMCINOLONE 11589666413 No Longer Active Alena Chavira AUDIT ASSOCIATE Active PHISOHEX 3 % LIQD Use Directed HEXACHLOROPHENE 77590678742 No Longer Active Sandra Salinas Active AZITHROMYCIN 250 MG ORAL TABLET 2 po qd x 1 day, then 1 po qd x 4 days 10/21 AZITHROMYCIN 92333185284 No Longer Active Katrina Rinaldi MD PhD Active AZITHROMYCIN 250 MG ORAL TABLET 2 po qd x 1 day, then 1 po qd x 4 days 10/16 AZITHROMYCIN 65413765310 No Longer Active Piotr Daley DO Active AZITHROMYCIN 500 MG INTRAVENOUS SOLUTION RECONSTITUTED 1 po q day AZITHROMYCIN 86028499008 No Longer Active Piotr Daley DO Active NYSTATIN-TRIAMCINOLONE 167448-8.1 UNIT/GM-% EXTERNAL CREAM apply bid NYSTATIN-TRIAMCINOLONE 95742974441 No Longer Active Piotr Daley DO Active IBUPROFEN 800 MG ORAL TABLET 1 po q 8 hours prn pain sparinly IBUPROFEN 40262520046 No Longer Active Piotr Daley DO Active VITAMIN D3 5000 UNIT ORAL CAPSULE 1 po daily CHOLECALCIFEROL 11050107979 Active Piotr Daley DO Active IBUPROFEN 800 MG ORAL TABLET 1 po q 8 hours prn pain sparinly IBUPROFEN 800 MG ORAL TABLET 062801 IBUPROFEN Inactive NYSTATIN-TRIAMCINOLONE 048071-1.1 UNIT/GM-% EXTERNAL CREAM apply bid NYSTATIN-TRIAMCINOLONE 376676-1.1 UNIT/GM-% EXTERNAL CREAM 3474690 NYSTATIN-TRIAMCINOLONE Inactive AZITHROMYCIN 500 MG INTRAVENOUS SOLUTION RECONSTITUTED 1 po q day AZITHROMYCIN 500 MG INTRAVENOUS SOLUTION RECONSTITUTED 61239414158 AZITHROMYCIN Inactive VENTOLIN HFA 108 (90 Base) MCG/ACT INHALATION AEROSOL SOLUTION 2 puffs four times a day PRN cough VENTOLIN HFA 108 (90 Base) MCG/ ACT INHALATION AEROSOL SOLUTION ALBUTEROL SULFATE Inactive LISINOPRIL 10 MG ORAL TABLET 1/2-1 tab po every other day LISINOPRIL 10 MG ORAL TABLET 117288 LISINOPRIL Inactive TUSSIONEX PENNKINETIC ER 10-8 MG/5ML ORAL SUSPENSION EXTENDED RELEASE 5ml po q12hr PRN Cough TUSSIONEX PENNKINETIC ER 10-8 MG/5ML ORAL SUSPENSION EXTENDED RELEASE HYDROCOD POLST-CHLORPHEN POLST Inactive PROMETHAZINE HCL 25 MG ORAL TABLET 1 four times a day as needed for nausea/ vomiting PROMETHAZINE HCL 25 MG ORAL TABLET 581403 PROMETHAZINE HCL Inactive PREDNISONE 20 MG ORAL TABLET 1 tablet twice daily for 2 days, then 1 tablet once daily for 2 days PREDNISONE 20 MG ORAL TABLET 549393 PREDNISONE Inactive WARFARIN SODIUM 4 MG ORAL TABLET 1 tab every evening WARFARIN SODIUM 4 MG ORAL TABLET 481469 WARFARIN SODIUM Inactive LOMOTIL 2.5-0.025 MG ORAL TABLET 1 to 2 four times a day as needed for diarrhea LOMOTIL 2.5-0.025 MG ORAL TABLET 3997017 DIPHENOXYLATE-ATROPINE Inactive IBUPROFEN 800 MG ORAL TABLET 1 tab every 8 hours as needed 07/12 IBUPROFEN 800 MG ORAL TABLET 817937 IBUPROFEN Inactive PREDNISONE 20 MG ORAL TABLET 2 tablets today, then 1 tablet days 2 through 4 PREDNISONE 20 MG ORAL TABLET 599571 PREDNISONE Inactive GABAPENTIN 300 MG ORAL CAPSULE 1 po q hs for nerve pain GABAPENTIN 300 MG ORAL CAPSULE 099806 GABAPENTIN Inactive TRAMADOL HCL 50 MG ORAL TABLET 1 po tid with ES Tylenol TRAMADOL HCL 50 MG ORAL TABLET 451053 TRAMADOL HCL Inactive PROAIR HFA 108 (90 BASE) MCG/ACT INHALATION AEROSOL SOLUTION 1-2 puffs four times a day as needed PROAIR HFA 108 (90 BASE) MCG/ACT INHALATION AEROSOL SOLUTION ALBUTEROL SULFATE Inactive PREDNISONE 20 MG ORAL TABLET two tabs by mouth today, then one tab by mouth days two and three PREDNISONE 20 MG ORAL TABLET 623150 PREDNISONE Inactive AZITHROMYCIN 250 MG ORAL TABLET 2 po qd x 1 day, then 1 po qd x 4 days 10/16 AZITHROMYCIN 250 MG ORAL TABLET 370636 AZITHROMYCIN Inactive AZITHROMYCIN 250 MG ORAL TABLET 2 po qd x 1 day, then 1 po qd x 4 days 10/21 AZITHROMYCIN 250 MG ORAL TABLET 002561 AZITHROMYCIN Inactive NYSTATIN-TRIAMCINOLONE 756842-5.1 UNIT/GM-% EXTERNAL CREAM Apply to area BID NYSTATIN-TRIAMCINOLONE 622998-8.1 UNIT/GM-% EXTERNAL CREAM 9214040 NYSTATIN-TRIAMCINOLONE Inactive AZITHROMYCIN 250 MG ORAL TABLET 2 po qd x 1 day, then 1 po qd x 4 days 05/07 AZITHROMYCIN 250 MG ORAL TABLET 741465 AZITHROMYCIN Inactive AZITHROMYCIN 250 MG ORAL TABLET 2 po qd x 1 day, then 1 po qd x 4 days 10/13 AZITHROMYCIN 250 MG ORAL TABLET 756437 AZITHROMYCIN Inactive AZITHROMYCIN 250 MG ORAL TABLET 2 po qd x 1 day, then 1 po qd x 4 days 07/12 AZITHROMYCIN 250 MG ORAL TABLET 530493 AZITHROMYCIN Inactive PREDNISONE 20 MG ORAL TABLET 2 tabs daily for 3 days, 1 tab daily for 3 days, 1/2 tab daily for 2 days PREDNISONE 20 MG ORAL TABLET 199388 PREDNISONE Inactive DOXYCYCLINE HYCLATE 100 MG ORAL CAPSULE 1 cap by mouth BID x10 days DOXYCYCLINE HYCLATE 100 MG ORAL CAPSULE 3823689 DOXYCYCLINE HYCLATE Inactive ZITHROMAX 250 MG ORAL TABLET Take two (2 ) tablets day one, then one (1) tablet a day for four (4) more days ZITHROMAX 250 MG ORAL TABLET 496319 AZITHROMYCIN Inactive Advance Directives Directive Description Start [...] Panel - Chemistry sodium, serum 141 mmol/L 132-259 1217/01/24 potassium, serum 4.3 mmol/L 3.5-5.2 chloride, serum [...] % 11.0-15.0 platelet count 172 THOUSAND/UL 10*3/mm3 621-167 4509/04/12 mean platelet volume 8.6 fL 7.5-12.5 Lab Report: Prothrombin Time - Coagulation prothrombin time (patient) 27.8 SECS s 11.1-13.4 international normalized ratio (INR) 4.2 1.0-3.5 Lab Report: Prothrombin Time Hemochron - Coagulation prothrombin time (patient) 33.0 SECS s 18.9-24.9 Encounters Code Encounter Date Provider Facility CPT-42265 Level 3 Est. Patient 12:33:59 CATALOGUE LIBRARIAN Piotr Daley [facility] CPT-21727 Level 3 Est. Patient 15:56:17 CATALOGUE LIBRARIAN Piotr Daley [facility] CPT-17549 Level 3 Est. Patient 10:34:54 CATALOGUE LIBRARIAN Piotr Daley [facility] CPT-13534 Level 3 Est. Patient 17:10:19 CDT Nella Harris APRN [facility] CPT-37383 Level 3 Est. Patient 10:48:17 CATALOGUE LIBRARIAN Matthew Rangel MD [facility] CPT-56123 Level 4 Est. Patient 17:15:07 CATALOGUE LIBRARIAN Piotr Daley [facility] CPT-60350 Level 3 Est. Patient 12:46:13 CATALOGUE LIBRARIAN Piotr Daley [facility] CPT-05559 Level 3 Est. Patient 15:14:31 CATALOGUE LIBRARIAN Piotr Daley [facility] CPT-10108 Level 3 Est. Patient 09:20:13 CATALOGUE LIBRARIAN Piotr Daley [facility] CPT-63918 Level 3 Est. Patient 09:49:40 CDT Piotr Daley [facility] CPT-29811 Level 3 Est. Patient 16:28:11 CDT Piotr Katie Edi [facility] CPT-68582 Level 3 Est. Patient 12:41:58 CATALOGUE LIBRARIAN Piotr Katie Daley [facility] CPT-75081 Level 3 Est. Patient 09:21:24 CDT Piotr Daley [facility] CPT-70587 Level 3 Est. Patient 09:21:11 CDT Piotr Katie Edi [facility] CPT-72531 Level 3 Est. Patient 11:16:29 CATALOGUE LIBRARIAN Piotr Katie Daley [facility] CPT-13997 Level 3 Est. Patient 18:40:19 CATALOGUE LIBRARIAN Piotr Daley [facility] CPT-76735 Level 3 Est. Patient 19:30:50 CDT Piotr Daley [facility] CPT-37534 Level 3 Est. Patient 22:06:44 CDT Katrina Rinaldi MD [facility] CPT-14330 Level 3 Est. Patient 14:20:00 CDT Piotr Daley [facility] CPT-83524 Level 3 Est. Patient 14:15:22 CATALOGUE LIBRARIAN Piotr Daley [facility] CPT-77527 Level 3 Est. Patient 20:19:57 CATALOGUE LIBRARIAN Piotr Daley [facility] CPT-80357 Level 3 Est. Patient 16:44:32 CDT Piotr Daley [facility] CPT-94610 Level 3 Est. Patient 08:48:46 CATALOGUE LIBRARIAN Piotr Daley [facility] CPT-98547 Level 3 Est. Patient 21:01:21 CDT Piotr Daley [facility] Procedures Code Procedure Name Date Entry Date Standard Description CPT-39145 LS spine comp w obliques - XRAY USE ONLY 14:52:26 CATALOGUE LIBRARIAN CPT-02667 Chest, 2 views 12:55:58 CATALOGUE LIBRARIAN CPT-G0439 Subsequent Annual Wellness Exam 10:34:52 CATALOGUE LIBRARIAN CPT-70056 BMP - LAB USE ONLY 17:19:11 CATALOGUE LIBRARIAN CPT-77014 PT/INR - LAB USE ONLY 17:19:10 CATALOGUE LIBRARIAN CPT-40308 Venipuncture Draw Fee 17:19:10 CATALOGUE LIBRARIAN CPT-13282 PT/INR - LAB USE ONLY 08:12:25 CATALOGUE LIBRARIAN CPT-48379 Venipuncture Draw Fee 08:12:24 CATALOGUE LIBRARIAN CPT-93504 Venipuncture Draw Fee 11:31:07 CATALOGUE LIBRARIAN CPT-91201 TPSA - LAB USE ONLY 11:31:07 CATALOGUE LIBRARIAN CPT-72909 PT/INR - LAB USE ONLY 11:31:07 CATALOGUE LIBRARIAN CPT-G0439 Subsequent Annual Wellness Exam 09:59:29 CATALOGUE LIBRARIAN CPT-39426 Creatinine - LAB USE ONLY 14:37:55 CATALOGUE LIBRARIAN CPT-02681 PT/INR - LAB USE ONLY 14:37:55 CATALOGUE LIBRARIAN CPT-51396 Venipuncture Draw Fee 14:37:55 CATALOGUE LIBRARIAN CPT-37570 LS spine comp w obliques - XRAY USE ONLY 12:59:25 CATALOGUE LIBRARIAN CPT-00307 PT/INR - LAB USE ONLY 13:49:20 CDT CPT-05277 Venipuncture Draw Fee 13:49:19 CDT CPT-28733 PT/INR - LAB USE ONLY 15:48:49 CDT CPT-67720 Venipuncture Draw Fee 15:48:49 CDT CPT-93992 Venipuncture Draw Fee 11:31:59 CDT CPT-51474 PT/INR - LAB USE ONLY 11:31:59 CDT CPT-80076 Venipuncture Draw Fee 13:29:15 CDT CPT-71232 Thoracolumbar AP/Lat 15:19:19 CATALOGUE LIBRARIAN CPT-G0438 Initial Annual Wellness Exam 12:18:54 CATALOGUE LIBRARIAN CPT-55730 Knee 3V 09:57:38 CDT CPT-OV Office Visit 15:45:01 CATALOGUE LIBRARIAN CPT-53806 Abd compl w upright 17:10:25 CDT
--- OUTSIDE RECORDS SUMMARY | 2018-07-18 08:42 | XMS REPORT | Clinical Summary ---
Author Author Admin, E Organization [employer] Address Unknown Phone Unavailable Allergies, Adverse Reactions, [...] times a day as needed ALBUTEROL SULFATE 79157375225 Active Matthew Rangel MD Active PREDNISONE 20 MG TAB 2 tabs daily for 3 days, 1 tab daily for 3 days, 1/2 tab daily for 2 days PREDNISONE 07090747063 No Longer Active Matthew Rangel MD Active TRAMADOL HCL 50 MG TABS 1 po tid with ES Tylenol TRAMADOL HCL 23664401833 No Longer Active Matthew Rangel MD Active GABAPENTIN 300 MG CAPS 1 po q hs for nerve pain GABAPENTIN 65006561056 No Longer Active Matthew Rangel MD Active WARFARIN SODIUM 5 MG TABS 1 tablet daily WARFARIN SODIUM 44443217334 Active Piotr Daley DO Active PREDNISONE 20 MG TAB 2 tablets today, then 1 tablet days 2 through 4 PREDNISONE 54951845642 No Longer Active Piotr Daley DO Active AZITHROMYCIN 250 MG TABS 2 po qd x 1 day, then 1 po qd x 4 days AZITHROMYCIN 58976957635 No Longer Active Piotr Daley DO Active IBUPROFEN 800 MG TABS 1 tab every 8 hours as needed IBUPROFEN 04581700117 No Longer Active Piotr Daley DO Active LOMOTIL 2.5-0.025 MG TAB 1 to 2 four times a day as needed for diarrhea 10/13 DIPHENOXYLATE-ATROPINE 13281538436 No Longer Active Piotr Daley DO Active WARFARIN SODIUM 4 MG TABS 1 tab every evening WARFARIN SODIUM 71470038869 No Longer Active Piotr Daley DO Active PREDNISONE 20 MG TAB 1 tablet twice daily for 2 days, then 1 tablet once daily for 2 days PREDNISONE 70138062071 No Longer Active Piotr Daley DO Active PROMETHAZINE HCL 25 MG TABS 1 four times a day as needed for nausea/vomiting PROMETHAZINE HCL 96045779668 No Longer Active Piotr Daley DO Active TUSSIONEX PENNKINETIC ER 10-8 MG/5ML LQCR 5ml po q12hr PRN Cough HYDROCOD POLST-CHLORPHEN POLST 70126469951 No Longer Active Piotr Daley DO Active AZITHROMYCIN 250 MG TABS 2 po qd x 1 day, then 1 po qd x 4 days AZITHROMYCIN 87282270987 No Longer Active Piotr Daley DO Active AZITHROMYCIN 250 MG TABS 2 po qd x 1 day, then 1 po qd x 4 days AZITHROMYCIN 37037656556 No Longer Active Piotr Daley DO Active LISINOPRIL-HYDROCHLOROTHIAZIDE 10-12.5 MG TABS 1 tab by mouth daily LISINOPRIL-HYDROCHLOROTHIAZIDE 17986585497 Active Simi Meyers Active LISINOPRIL 10 MG TABS 1/2-1 tab po every other day LISINOPRIL 72799574870 No Longer Active Piotr Daley DO Active VENTOLIN HFA 108 (90 BASE) MCG/ACT AERS 2 puffs four times a day PRN cough ALBUTEROL SULFATE 90431349782 No Longer Active Piotr Daley DO Active NYSTATIN-TRIAMCINOLONE 130350-4.1 UNIT/GM-% CREA Apply to area BID NYSTATIN-TRIAMCINOLONE 16128783387 No Longer Active Alena Chavira FACILITY PRACTICE SPECIALIST Active PHISOHEX 3 % LIQD Use Directed HEXACHLOROPHENE 00784413614 No Longer Active Sandra Dentarger Active AZITHROMYCIN 250 MG TABS 2 po qd x 1 day, then 1 po qd x 4 days AZITHROMYCIN 41466813893 No Longer Active Katrina Rinaldi MD PhD Active AZITHROMYCIN 250 MG TABS 2 po qd x 1 day, then 1 po qd x 4 days AZITHROMYCIN 14266920998 No Longer Active Piotr Daley DO Active AZITHROMYCIN 500 MG SOLR 1 po q day AZITHROMYCIN 47891081508 No Longer Active Piotr Daley DO Active NYSTATIN-TRIAMCINOLONE 666560-3.1 UNIT/GM-% CREA apply bid 08/19 NYSTATIN-TRIAMCINOLONE 32357220444 No Longer Active Piotr Daley DO Active IBUPROFEN 800 MG TABS 1 po q 8 hours prn pain sparinly IBUPROFEN 08001539845 No Longer Active Piotr Daley DO Active VITAMIN D3 5000 UNIT CAPS 1 po daily CHOLECALCIFEROL 44327344562 Active Piotr Daley DO Active IBUPROFEN 800 MG TABS 1 po q 8 hours prn pain sparinly IBUPROFEN 800 MG TABS 103448 IBUPROFEN Inactive NYSTATIN-TRIAMCINOLONE 663717-5.1 UNIT/GM-% CREA apply bid 08/19 NYSTATIN-TRIAMCINOLONE 710257-0.1 UNIT/GM-% CREA 5335346 NYSTATIN- TRIAMCINOLONE Inactive AZITHROMYCIN 500 MG SOLR 1 po q day AZITHROMYCIN 500 MG SOLR 42545721679 AZITHROMYCIN Inactive VENTOLIN HFA 108 (90 BASE) MCG/ACT AERS 2 puffs four times a day PRN cough VENTOLIN HFA 108 (90 BASE) MCG/ACT AERS ALBUTEROL SULFATE Inactive LISINOPRIL 10 MG TABS 1/2-1 tab po every other day LISINOPRIL 10 MG TABS 999137 LISINOPRIL Inactive TUSSIONEX PENNKINETIC ER 10-8 MG/5ML LQCR 5ml po q12hr PRN Cough TUSSIONEX PENNKINETIC ER 10-8 MG/5ML LQCR HYDROCOD POLST- CHLORPHEN POLST Inactive PROMETHAZINE HCL 25 MG TABS 1 four times a day as needed for nausea/vomiting PROMETHAZINE HCL 25 MG TABS 705257 PROMETHAZINE HCL Inactive PREDNISONE 20 MG TAB 1 tablet twice daily for 2 days, then 1 tablet once daily for 2 days PREDNISONE 20 MG TAB 961947 PREDNISONE Inactive WARFARIN SODIUM 4 MG TABS 1 tab every evening WARFARIN SODIUM 4 MG TABS 321353 WARFARIN SODIUM Inactive LOMOTIL 2.5-0.025 MG TAB 1 to 2 four times a day as needed for diarrhea 10/13 LOMOTIL 2.5-0.025 MG TAB 2363902 DIPHENOXYLATE-ATROPINE Inactive IBUPROFEN 800 MG TABS 1 tab every 8 hours as needed IBUPROFEN 800 MG TABS 397061 IBUPROFEN Inactive PREDNISONE 20 MG TAB 2 tablets today, then 1 tablet days 2 through 4 PREDNISONE 20 MG TAB 723181 PREDNISONE Inactive GABAPENTIN 300 MG CAPS 1 po q hs for nerve pain GABAPENTIN 300 MG CAPS 591604 GABAPENTIN Inactive TRAMADOL HCL 50 MG TABS 1 po tid with ES Tylenol TRAMADOL HCL 50 MG TABS 101479 TRAMADOL HCL Inactive AZITHROMYCIN 250 MG TABS 2 po qd x 1 day, then 1 po qd x 4 days AZITHROMYCIN 250 MG TABS 8285967 AZITHROMYCIN Inactive AZITHROMYCIN 250 MG TABS 2 po qd x 1 day, then 1 po qd x 4 days AZITHROMYCIN 250 MG TABS 9516154 AZITHROMYCIN Inactive NYSTATIN-TRIAMCINOLONE 702367-5.1 UNIT/GM-% CREA Apply to area BID NYSTATIN-TRIAMCINOLONE 798579-8.1 UNIT/GM-% CREA 6630459 NYSTATIN-TRIAMCINOLONE Inactive AZITHROMYCIN 250 MG TABS 2 po qd x 1 day, then 1 po qd x 4 days AZITHROMYCIN 250 MG TABS 9473759 AZITHROMYCIN Inactive AZITHROMYCIN 250 MG TABS 2 po qd x 1 day, then 1 po qd x 4 days AZITHROMYCIN 250 MG TABS 2576563 AZITHROMYCIN Inactive AZITHROMYCIN 250 MG TABS 2 po qd x 1 day, then 1 po qd x 4 days AZITHROMYCIN 250 MG TABS 9447592 AZITHROMYCIN Inactive PREDNISONE 20 MG TAB 2 tabs daily for 3 days, 1 tab daily for 3 days, 1/2 tab daily for 2 days PREDNISONE 20 MG TAB 190347 PREDNISONE Inactive Advance Directives Directive Description Start [...] Panel - Chemistry sodium, serum 141 mmol/L 013-990 0202/01/24 potassium, serum 4.3 mmol/L 3.5-5.2 chloride, serum 103 mmol/L 98-107 carbon dioxide, venous blood 30.7 mmol/L 21.0-32.0 blood glucose 90 mg/dL 65-110 calcium, serum 8.5 mg/dL 8.5-10.1 urea nitrogen, blood 16 mg/dL 7-18 creatinine, serum 1.09 mg/dL 0.55-1.30 Lab Report: Comp. Metabolic Panel - Chemistry sodium, serum 141 mmol/L 554-326 6396/06/28 carbon dioxide, venous blood 31.0 mmol/L 21.0-32.0 [...] 1.0-3.5 Encounters Code Encounter Date Provider Facility CPT-52992 Level 3 Est. Patient 10:48:17 JUICE TESTER Matthew Rangel MD [facility] CPT-72134 Level 4 Est. Patient 17:15:07 JUICE TESTER Piotr Daley [facility] CPT-59017 Level 3 Est. Patient 12:46:13 JUICE TESTER Piotr Daley [facility] CPT-92890 Level 3 Est. Patient 15:14:31 JUICE TESTER Piotr Daley [facility] CPT-43401 Level 3 Est. Patient 09:20:13 JUICE TESTER Piotr Daley [facility] CPT-10374 Level 3 Est. Patient 09:49:40 CDT Piotr Wilson [facility] CPT-77860 Level 3 Est. Patient 16:28:11 CDT Piotr Daley [facility] CPT-21683 Level 3 Est. Patient 12:41:58 JUICE TESTER Piotr Daley [facility] CPT-58460 Level 3 Est. Patient 09:21:24 CDT Piotr Daley [facility] CPT-92548 Level 3 Est. Patient 09:21:11 CDT Piotr Wilson [facility] CPT-22737 Level 3 Est. Patient 11:16:29 JUICE TESTER Piotr Daley [facility] CPT-98598 Level 3 Est. Patient 18:40:19 JUICE TESTER Piotr Daley [facility] CPT-18148 Level 3 Est. Patient 19:30:50 CDT Piotr Wilson [facility] CPT-18536 Level 3 Est. Patient 22:06:44 CDT Katrina Rinaldi MD [facility] CPT-96918 Level 3 Est. Patient 14:20:00 CDT Piotr Daley [facility] CPT-91836 Level 3 Est. Patient 14:15:22 JUICE TESTER Piotr Daley [facility] CPT-10090 Level 3 Est. Patient 20:19:57 JUICE TESTER Piotr Daley [facility] CPT-95897 Level 3 Est. Patient 16:44:32 CDT Piotr Daley [facility] CPT-56191 Level 3 Est. Patient 08:48:46 JUICE TESTER Piotr Daley [facility] CPT-21006 Level 3 Est. Patient 21:01:21 CDT Piotr Wilson [facility] Procedures Code Procedure Name Date Entry Date Standard Description CPT-86816 BMP - LAB USE ONLY 17:19:11 JUICE TESTER CPT-20044 PT/INR - LAB USE ONLY 17:19:10 JUICE TESTER CPT-17006 Venipuncture Draw Fee 17:19:10 JUICE TESTER CPT-65659 PT/INR - LAB USE ONLY 08:12:25 JUICE TESTER CPT-24298 Venipuncture Draw Fee 08:12:24 JUICE TESTER CPT-77855 Venipuncture Draw Fee 11:31:07 JUICE TESTER CPT-98885 TPSA - LAB USE ONLY 11:31:07 JUICE TESTER CPT-73406 PT/INR - LAB USE ONLY 11:31:07 JUICE TESTER CPT-G0439 [facility] Annual Wellness Exam 09:59:29 JUICE TESTER CPT-34161 Creatinine - LAB USE ONLY 14:37:55 JUICE TESTER CPT-84028 PT/INR - LAB USE ONLY 14:37:55 JUICE TESTER CPT-92702 Venipuncture Draw Fee 14:37:55 JUICE TESTER CPT-37829 LS spine comp w obliques - XRAY USE ONLY 12:59:25 JUICE TESTER CPT-30451 PT/INR - LAB USE ONLY 13:49:20 CDT CPT-94518 Venipuncture Draw Fee 13:49:19 CDT CPT-27948 PT/INR - LAB USE ONLY 15:48:49 CDT CPT-56439 Venipuncture Draw Fee 15:48:49 CDT CPT-93991 Venipuncture Draw Fee 11:31:59 CDT CPT-37504 PT/INR - LAB USE ONLY 11:31:59 CDT CPT-19782 Venipuncture Draw Fee 13:29:15 CDT CPT-00252 Thoracolumbar AP/Lat 15:19:19 JUICE TESTER CPT-G0438 Initial Annual Wellness Exam 12:18:54 JUICE TESTER CPT-92602 Knee 3V 09:57:38 CDT CPT-OV Office Visit 15:45:01 JUICE TESTER CPT-50592 Abd compl w upright 17:10:25 CDT
--- OUTSIDE RECORDS SUMMARY | 2018-07-18 08:43 | XMS REPORT | Clinical Summary ---
Author Author Admin, [employer] Address Unknown Phone Unavailable Allergies, Adverse Reactions, [...] Knee pain, left 719.46 Active Piotr Katie Dei DO Pain in joint involving lower leg Health maintenance exam V70.0 Active Adriane Rojo LPN Routine general medical examination at a health care facility Actinic keratoses 702.0 Active Piotr Katie Edi DO Actinic keratosis Personal history of malignant neoplasm of prostate V10.46 Active Alina Meyers ASSISTANT DIRECTOR OF NURSING Personal history of malignant neoplasm of prostate Coronary artery disease 414.00 Active Alina Meyers APRN Coronary atherosclerosis of unspecified type of vessel, ambler or graft Back pain, thoracic region, left [...] po q hs for nerve pain GABAPENTIN 92999524149 Active Piotr Daley DO Active WARFARIN SODIUM 5 MG TABS 1 tablet daily WARFARIN SODIUM 25448482288 Active Simi Meyers Active TRAMADOL HCL 50 MG TABS 1 po tid with ES Tylenol TRAMADOL HCL 34269486884 Active Piotr Daley DO Active PREDNISONE 20 MG TAB 2 tablets today, then 1 tablet days 2 through 4 PREDNISONE 17437720419 No Longer Active Piotr Daley DO Active AZITHROMYCIN 250 MG TABS 2 po qd x 1 day, then 1 po qd x 4 days AZITHROMYCIN 74545378602 No Longer Active Piotr Daley DO Active IBUPROFEN 800 MG TABS 1 tab every 8 hours as needed IBUPROFEN 07828327653 No Longer Active Piotr Daley DO Active LOMOTIL 2.5-0.025 MG TAB 1 to 2 four times a day as needed for diarrhea 10/13 DIPHENOXYLATE-ATROPINE 30992992101 No Longer Active Piotr Daley DO Active WARFARIN SODIUM 4 MG TABS 1 tab every evening WARFARIN SODIUM 84577530653 No Longer Active Piotr Daley DO Active PREDNISONE 20 MG TAB 1 tablet twice daily for 2 days, then 1 tablet once daily for 2 days PREDNISONE 20711852593 No Longer Active Piotr Daley DO Active PROMETHAZINE HCL 25 MG TABS 1 four times a day as needed for nausea/vomiting PROMETHAZINE HCL 86589373624 No Longer Active Piotr Daley DO Active TUSSIONEX PENNKINETIC ER 10-8 MG/5ML LQCR 5ml po q12hr PRN Cough HYDROCOD POLST-CHLORPHEN POLST 95421617399 No Longer Active Piotr Daley DO Active AZITHROMYCIN 250 MG TABS 2 po qd x 1 day, then 1 po qd x 4 days AZITHROMYCIN 00319412377 No Longer Active Piotr Daley DO Active AZITHROMYCIN 250 MG TABS 2 po qd x 1 day, then 1 po qd x 4 days AZITHROMYCIN 23530462033 No Longer Active Piotr Daley DO Active LISINOPRIL-HYDROCHLOROTHIAZIDE 10-12.5 MG TABS 1 tab by mouth daily LISINOPRIL-HYDROCHLOROTHIAZIDE 58773398282 Active Hilary Ma MA Active LISINOPRIL 10 MG TABS 1/2-1 tab po every other day LISINOPRIL 24724160964 No Longer Active Piotr Daley DO Active VENTOLIN HFA 108 (90 BASE) MCG/ACT AERS 2 puffs four times a day PRN cough ALBUTEROL SULFATE 31527026045 No Longer Active Piotr Daley DO Active NYSTATIN-TRIAMCINOLONE 642773-5.1 UNIT/GM-% CREA Apply to area BID NYSTATIN-TRIAMCINOLONE 72164380913 No Longer Active Alena Chavira HUMAN FACTORS ERGONOMIST Active PHISOHEX 3 % LIQD Use Directed HEXACHLOROPHENE 11456737609 No Longer Active Sandra Clifford Active AZITHROMYCIN 250 MG TABS 2 po qd x 1 day, then 1 po qd x 4 days AZITHROMYCIN 32282142852 No Longer Active Katrina Rinaldi MD PhD Active AZITHROMYCIN 250 MG TABS 2 po qd x 1 day, then 1 po qd x 4 days AZITHROMYCIN 04872641895 No Longer Active Piotr Daley DO Active AZITHROMYCIN 500 MG SOLR 1 po q day AZITHROMYCIN 57334813839 No Longer Active Piotr Daley DO Active NYSTATIN-TRIAMCINOLONE 263610-5.1 UNIT/GM-% CREA apply bid 08/19 NYSTATIN-TRIAMCINOLONE 87021510437 No Longer Active Piotr Daley DO Active IBUPROFEN 800 MG TABS 1 po q 8 hours prn pain sparinly IBUPROFEN 66858454218 No Longer Active Piotr Daley DO Active VITAMIN D3 5000 UNIT CAPS 1 po daily CHOLECALCIFEROL 91314635725 Active Piotr Daley DO Active IBUPROFEN 800 MG TABS 1 po q 8 hours prn pain sparinly IBUPROFEN 800 MG TABS 790565 IBUPROFEN Inactive NYSTATIN-TRIAMCINOLONE 584571-9.1 UNIT/GM-% CREA apply bid 08/19 NYSTATIN-TRIAMCINOLONE 473796-9.1 UNIT/GM-% CREA 1701851 NYSTATIN- TRIAMCINOLONE Inactive AZITHROMYCIN 500 MG SOLR 1 po q day AZITHROMYCIN 500 MG SOLR 71223083726 AZITHROMYCIN Inactive VENTOLIN HFA 108 (90 BASE) MCG/ACT AERS 2 puffs four times a day PRN cough VENTOLIN HFA 108 (90 BASE) MCG/ACT AERS ALBUTEROL SULFATE Inactive LISINOPRIL 10 MG TABS 1/2-1 tab po every other day LISINOPRIL 10 MG TABS 875365 LISINOPRIL Inactive TUSSIONEX PENNKINETIC ER 10-8 MG/5ML LQCR 5ml po q12hr PRN Cough TUSSIONEX PENNKINETIC ER 10-8 MG/5ML LQCR HYDROCOD POLST- CHLORPHEN POLST Inactive PROMETHAZINE HCL 25 MG TABS 1 four times a day as needed for nausea/vomiting PROMETHAZINE HCL 25 MG TABS 137734 PROMETHAZINE HCL Inactive PREDNISONE 20 MG TAB 1 tablet twice daily for 2 days, then 1 tablet once daily for 2 days PREDNISONE 20 MG TAB 072373 PREDNISONE Inactive WARFARIN SODIUM 4 MG TABS 1 tab every evening WARFARIN SODIUM 4 MG TABS 002798 WARFARIN SODIUM Inactive LOMOTIL 2.5-0.025 MG TAB 1 to 2 four times a day as needed for diarrhea 10/13 LOMOTIL 2.5-0.025 MG TAB 0529232 DIPHENOXYLATE-ATROPINE Inactive IBUPROFEN 800 MG TABS 1 tab every 8 hours as needed IBUPROFEN 800 MG TABS 354192 IBUPROFEN Inactive PREDNISONE 20 MG TAB 2 tablets today, then 1 tablet days 2 through 4 PREDNISONE 20 MG TAB 486536 PREDNISONE Inactive AZITHROMYCIN 250 MG TABS 2 po qd x 1 day, then 1 po qd x 4 days AZITHROMYCIN 250 MG TABS 0184276 AZITHROMYCIN Inactive AZITHROMYCIN 250 MG TABS 2 po qd x 1 day, then 1 po qd x 4 days AZITHROMYCIN 250 MG TABS 9409357 AZITHROMYCIN Inactive NYSTATIN-TRIAMCINOLONE 545706-5.1 UNIT/GM-% CREA Apply to area BID NYSTATIN-TRIAMCINOLONE 583998-6.1 UNIT/GM-% CREA 9322635 NYSTATIN-TRIAMCINOLONE Inactive AZITHROMYCIN 250 MG TABS 2 po qd x 1 day, then 1 po qd x 4 days AZITHROMYCIN 250 MG TABS 9000265 AZITHROMYCIN Inactive AZITHROMYCIN 250 MG TABS 2 po qd x 1 day, then 1 po qd x 4 days AZITHROMYCIN 250 MG TABS 9145421 AZITHROMYCIN Inactive AZITHROMYCIN 250 MG TABS 2 po qd x 1 day, then 1 po qd x 4 days AZITHROMYCIN 250 MG TABS 8494378 AZITHROMYCIN Inactive Advance Directives Directive Description Start [...] % 11.6-14.8 platelet count 210 10^3/MM^3 10*3/mm3 613-888 1409/02/09 erythrocyte (RBC) count 5.20 10^6/MM^3 10*6/mm3 4.69-6.13 hemoglobin, blood 14.8 g/dL 13.5-17.5 hematocrit, blood 43.6 % 41.0-53.0 mean corpuscular volume, RBC 84 fL 80-97 mean corpuscular hemoglobin, RBC 28.4 pg 27.0-31.2 Lab Report: Comp. Metabolic Panel - Chemistry sodium, serum 141 mmol/L 274-471 8586/06/28 carbon dioxide, venous blood 31.0 mmol/L 21.0-32.0 [...] Prothrombin Time - Coagulation prothrombin time (patient) 16.6 SECS s 11.1-13.4 international normalized ratio (INR) 1.9 1.0-3.5 prothrombin time (patient) 23.1 SECS s 11.1-13.4 international normalized ratio (INR) 3.0 1.0-3.5 international normalized ratio (INR) 2.5 1.0-3.5 prothrombin time (patient) 19.8 SECS s 11.1-13.4 international normalized ratio (INR) 2.3 1.0-3.5 prothrombin time (patient) 23.8 SECS s 11.1-13.4 international normalized ratio (INR) 3.2 1.0-3.5 prothrombin time (patient) 18.3 SECS s 11.1-13.4 international normalized ratio (INR) 2.3 1.0-3.5 prothrombin time (patient) 15.4 SECS s 11.1-13.4 international normalized ratio (INR) 1.7 1.0-3.5 prothrombin time (patient) 22.8 SECS s 11.1-13.4 international normalized ratio (INR) 3.0 1.0-3.5 prothrombin time (patient) 20.8 SECS s 11.1-13.4 prothrombin time (patient) 18.1 SECS s 11.1-13.4 international normalized ratio (INR) 2.2 1.0-3.5 prothrombin time (patient) 18.9 SECS s 11.1-13.4 international normalized ratio (INR) 2.4 1.0-3.5 Lab Report: UADIP W/MICRO, AUTO - Chemistry protein, total urine random Negative mg/dL Negative RBC, urine, dipstick Negative Negative Lab Report: UADIP W/MICRO, AUTO - Urinalysis urobilinogen, urine, semiquantitative (dipstick) 0.2 Normal leukocyte esterase, urine, by dipstick Negative Negative nitrite, urine, semiquantitative Negative Negative pH, urine, semiquantitative 6.0 5.0-8.5 specific gravity, urine 1.025 1.000-1.030 appearance, urine Clear Clear urine color Yellow Colorless;Lightyellow;Straw;Yellow glucose, urine, semiquantitative Negative Negative ketones, urine, by test strip Negative Negative bilirubin, urine Negative Negative Encounters Code Encounter Date Provider Facility CPT-15721 Level 4 Est. Patient 17:15:07 ROVING HAND Piotr Daley [facility] CPT-41296 Level 3 Est. Patient 12:46:13 ROVING HAND Piotr Daley [facility] CPT-89289 Level 3 Est. Patient 15:14:31 ROVING HAND Piotr Daley [facility] CPT-71152 Level 3 Est. Patient 09:20:13 ROVING HAND Piotr Katie Edi [facility] CPT-03515 Level 3 Est. Patient 09:49:40 CDT Piotr Katie Edi [facility] CPT-87022 Level 3 Est. Patient 16:28:11 CDT Piotr Daley [facility] CPT-92195 Level 3 Est. Patient 12:41:58 ROVING HAND Piotr Daley [facility] CPT-36963 Level 3 Est. Patient 09:21:24 CDT Piotr Wilson [facility] CPT-34372 Level 3 Est. Patient 09:21:11 CDT Piotr Daley [facility] CPT-42560 Level 3 Est. Patient 11:16:29 ROVING HAND Piotr Daley [facility] CPT-79767 Level 3 Est. Patient 18:40:19 ROVING HAND Piotr Daley [facility] CPT-10056 Level 3 Est. Patient 19:30:50 CDT Piotr Daley [facility] CPT-72862 Level 3 Est. Patient 22:06:44 CDT Katrina Rinaldi MD [facility] CPT-18429 Level 3 Est. Patient 14:20:00 CDT Piotr Daley [facility] CPT-48723 Level 3 Est. Patient 14:15:22 ROVING HAND Piotr Daley [facility] CPT-89632 Level 3 Est. Patient 20:19:57 ROVING HAND Piotr Daley [facility] CPT-14689 Level 3 Est. Patient 16:44:32 CDT Piotr Daley [facility] CPT-93189 Level 3 Est. Patient 08:48:46 ROVING HAND Piotr Daley [facility] CPT-76459 Level 3 Est. Patient 21:01:21 CDT Piotr Daley [facility] Procedures Code Procedure Name Date Entry Date Standard Description CPT-29525 Creatinine - LAB USE ONLY 14:37:55 ROVING HAND CPT-32926 PT/INR - LAB USE ONLY 14:37:55 ROVING HAND CPT-77033 Venipuncture Draw Fee 14:37:55 ROVING HAND CPT-03334 LS spine comp w obliques - XRAY USE ONLY 12:59:25 ROVING HAND CPT-47268 PT/INR - LAB USE ONLY 13:49:20 CDT CPT-09032 Venipuncture Draw Fee 13:49:19 CDT CPT-14885 PT/INR - LAB USE ONLY 15:48:49 CDT CPT-39092 Venipuncture Draw Fee 15:48:49 CDT CPT-06877 Venipuncture Draw Fee 11:31:59 CDT CPT-29674 PT/INR - LAB USE ONLY 11:31:59 CDT CPT-93034 Venipuncture Draw Fee 13:29:15 CDT CPT-88843 Thoracolumbar AP/Lat 15:19:19 ROVING HAND CPT-G0438 Initial Annual Wellness Exam 12:18:54 ROVING HAND CPT-64043 Knee 3V 09:57:38 CDT CPT-OV Office Visit 15:45:01 ROVING HAND CPT-08134 Abd compl w upright 17:10:25 CDT
--- OUTSIDE RECORDS SUMMARY | 2018-07-18 08:44 | XMS REPORT | Clinical Summary ---
Author Author Admin, E Organization [employer] Address Unknown Phone Unavailable Allergies, Adverse [...] neoplasm of prostate V10.46 Active Alina Meyers EDGE GRINDER MACHINE Personal history of malignant neoplasm of prostate Coronary artery disease 414.00 Active Alina Luigi EDGE GRINDER MACHINE Coronary atherosclerosis of unspecified type of vessel, [place] or graft Back pain, thoracic [...] MG TABS 1 tablet daily WARFARIN SODIUM 86986707278 Active Emelyn Goode RPT,RMA Active TRAMADOL HCL 50 MG TABS 1 po tid with ES Tylenol TRAMADOL HCL 92156674981 Active Piotr Daley DO Active PREDNISONE 20 MG TAB 2 tablets today, then 1 tablet days 2 through 4 PREDNISONE 74297159990 No Longer Active Piotr Daley DO Active AZITHROMYCIN 250 MG TABS 2 po qd x 1 day, then 1 po qd x 4 days AZITHROMYCIN 64577966370 No Longer Active Piotr Daley DO Active IBUPROFEN 800 MG TABS 1 tab every 8 hours as needed IBUPROFEN 23640177827 No Longer Active Piotr Daley DO Active LOMOTIL 2.5-0.025 MG TAB 1 to 2 four times a day as needed for diarrhea 10/13 DIPHENOXYLATE-ATROPINE 45797724808 No Longer Active Piotr Daley DO Active WARFARIN SODIUM 4 MG TABS 1 tab every evening WARFARIN SODIUM 88494860235 No Longer Active Piotr Daley DO Active PREDNISONE 20 MG TAB 1 tablet twice daily for 2 days, then 1 tablet once daily for 2 days PREDNISONE 15426770335 No Longer Active Piotr Daley DO Active PROMETHAZINE HCL 25 MG TABS 1 four times a day as needed for nausea/vomiting PROMETHAZINE HCL 82435288317 No Longer Active Piotr Daley DO Active TUSSIONEX PENNKINETIC ER 10-8 MG/5ML LQCR 5ml po q12hr PRN Cough HYDROCOD POLST-CHLORPHEN POLST 70802452616 No Longer Active Piotr W Edi DO Active AZITHROMYCIN 250 MG TABS 2 po qd x 1 day, then 1 po qd x 4 days AZITHROMYCIN 64683375416 No Longer Active Piotr Daley DO Active AZITHROMYCIN 250 MG TABS 2 po qd x 1 day, then 1 po qd x 4 days AZITHROMYCIN 45121881009 No Longer Active Piotr Daley DO Active LISINOPRIL-HYDROCHLOROTHIAZIDE 10-12.5 MG TABS 1 tab by mouth daily LISINOPRIL-HYDROCHLOROTHIAZIDE 07350496884 Active Hilary Ma MA Active LISINOPRIL 10 MG TABS 1/2-1 tab po every other day LISINOPRIL 06631294857 No Longer Active Piotr Daley DO Active VENTOLIN HFA 108 (90 BASE) MCG/ACT AERS 2 puffs four times a day PRN cough ALBUTEROL SULFATE 91759121733 No Longer Active Piotr Daley DO Active NYSTATIN-TRIAMCINOLONE 563369-5.1 UNIT/GM-% CREA Apply to area BID NYSTATIN-TRIAMCINOLONE 25840661560 No Longer Active Alena Oswaldum BEAN SNAPPER Active PHISOHEX 3 % LIQD Use Directed HEXACHLOROPHENE 66260917630 No Longer Active Sandra [place] Active AZITHROMYCIN 250 MG TABS 2 po qd x 1 day, then 1 po qd x 4 days AZITHROMYCIN 01751880595 No Longer Active Katrina Rinaldi MD PhD Active AZITHROMYCIN 250 MG TABS 2 po qd x 1 day, then 1 po qd x 4 days AZITHROMYCIN 81468939875 No Longer Active Piotr Daley DO Active AZITHROMYCIN 500 MG SOLR 1 po q day AZITHROMYCIN 71326701618 No Longer Active Piotr Daley DO Active NYSTATIN-TRIAMCINOLONE 617035-1.1 UNIT/GM-% CREA apply bid 08/19 NYSTATIN-TRIAMCINOLONE 32706822362 No Longer Active Piotr Daley DO Active IBUPROFEN 800 MG TABS 1 po q 8 hours prn pain sparinly IBUPROFEN 44747021619 No Longer Active Piotr Daley DO Active VITAMIN D3 5000 UNIT CAPS 1 po daily CHOLECALCIFEROL 41494503117 Active Piotr Daley DO Active IBUPROFEN 800 MG TABS 1 po q 8 hours prn pain sparinly IBUPROFEN 800 MG TABS 699452 IBUPROFEN Inactive NYSTATIN-TRIAMCINOLONE 695530-3.1 UNIT/GM-% CREA apply bid 08/19 NYSTATIN-TRIAMCINOLONE 538389-9.1 UNIT/GM-% CREA 1892928 NYSTATIN- TRIAMCINOLONE Inactive AZITHROMYCIN 500 MG SOLR 1 po q day AZITHROMYCIN 500 MG SOLR 03401602666 AZITHROMYCIN Inactive VENTOLIN HFA 108 (90 BASE) MCG/ACT AERS 2 puffs four times a day PRN cough VENTOLIN HFA 108 (90 BASE) MCG/ACT AERS ALBUTEROL SULFATE Inactive LISINOPRIL 10 MG TABS 1/2-1 tab po every other day LISINOPRIL 10 MG TABS 678693 LISINOPRIL Inactive TUSSIONEX PENNKINETIC ER 10-8 MG/5ML LQCR 5ml po q12hr PRN Cough TUSSIONEX PENNKINETIC ER 10-8 MG/5ML LQCR HYDROCOD POLST- CHLORPHEN POLST Inactive PROMETHAZINE HCL 25 MG TABS 1 four times a day as needed for nausea/vomiting PROMETHAZINE HCL 25 MG TABS 993792 PROMETHAZINE HCL Inactive PREDNISONE 20 MG TAB 1 tablet twice daily for 2 days, then 1 tablet once daily for 2 days PREDNISONE 20 MG TAB 583457 PREDNISONE Inactive WARFARIN SODIUM 4 MG TABS 1 tab every evening WARFARIN SODIUM 4 MG TABS 793681 WARFARIN SODIUM Inactive LOMOTIL 2.5-0.025 MG TAB 1 to 2 four times a day as needed for diarrhea 10/13 LOMOTIL 2.5-0.025 MG TAB 3613789 DIPHENOXYLATE-ATROPINE Inactive IBUPROFEN 800 MG TABS 1 tab every 8 hours as needed IBUPROFEN 800 MG TABS 157828 IBUPROFEN Inactive PREDNISONE 20 MG TAB 2 tablets today, then 1 tablet days 2 through 4 PREDNISONE 20 MG TAB 398649 PREDNISONE Inactive AZITHROMYCIN 250 MG TABS 2 po qd x 1 day, then 1 po qd x 4 days AZITHROMYCIN 250 MG TABS 7865337 AZITHROMYCIN Inactive AZITHROMYCIN 250 MG TABS 2 po qd x 1 day, then 1 po qd x 4 days AZITHROMYCIN 250 MG TABS 5598689 AZITHROMYCIN Inactive NYSTATIN-TRIAMCINOLONE 692669-1.1 UNIT/GM-% CREA Apply to area BID NYSTATIN-TRIAMCINOLONE 587241-6.1 UNIT/GM-% CREA 4214003 NYSTATIN-TRIAMCINOLONE Inactive AZITHROMYCIN 250 MG TABS 2 po qd x 1 day, then 1 po qd x 4 days AZITHROMYCIN 250 MG TABS 9664361 AZITHROMYCIN Inactive AZITHROMYCIN 250 MG TABS 2 po qd x 1 day, then 1 po qd x 4 days AZITHROMYCIN 250 MG TABS 5654520 AZITHROMYCIN Inactive AZITHROMYCIN 250 MG TABS 2 po qd x 1 day, then 1 po qd x 4 days AZITHROMYCIN 250 MG TABS 2789841 AZITHROMYCIN Inactive Advance Directives Directive Description Start [...] Panel - Chemistry sodium, serum 141 mmol/L 424-881 6728/06/28 carbon dioxide, venous blood 31.0 mmol/L 21.0-32.0 [...] 5.0-8.5 Encounters Code Encounter Date Provider Facility CPT-73381 Level 3 Est. Patient 15:14:31 WARDROBE MANAGER Piotr Daley DO [facility] CPT-98006 Level 3 Est. Patient 09:20:13 WARDROBE MANAGER Piotr Daley [facility] CPT-86185 Level 3 Est. Patient 09:49:40 CDT Piotr Daley [facility] CPT-96970 Level 3 Est. Patient 16:28:11 CDT Piotr Daley [facility] CPT-18645 Level 3 Est. Patient 12:41:58 WARDROBE MANAGER Piotr Daley [facility] CPT-06572 Level 3 Est. Patient 09:21:24 CDT Piotr Daley [facility] CPT-18204 Level 3 Est. Patient 09:21:11 CDT Piotr Daley [facility] CPT-92309 Level 3 Est. Patient 11:16:29 WARDROBE MANAGER Piotr Daley [facility] CPT-75626 Level 3 Est. Patient 18:40:19 WARDROBE MANAGER Piotr Daley [facility] CPT-84444 Level 3 Est. Patient 19:30:50 CDT Piotr Daley [facility] CPT-93702 Level 3 Est. Patient 22:06:44 CDT Katrina Rinaldi MD [facility] CPT-20862 Level 3 Est. Patient 14:20:00 CDT Piotr Daley [facility] CPT-00201 Level 3 Est. Patient 14:15:22 WARDROBE MANAGER Piotr Daley [facility] CPT-87873 Level 3 Est. Patient 20:19:57 WARDROBE MANAGER Piotr Daley [facility] CPT-23021 Level 3 Est. Patient 16:44:32 CDT Piotr Daley [facility] CPT-60892 Level 3 Est. Patient 08:48:46 WARDROBE MANAGER Piotr Daley [facility] CPT-92203 Level 3 Est. Patient 21:01:21 CDT Piotr Daley [facility] Procedures Code Procedure Name Date Entry Date Standard Description CPT-29440 Venipuncture Draw Fee 11:31:59 CDT CPT-59210 PT/INR - LAB USE ONLY 11:31:59 CDT CPT-04904 Venipuncture Draw Fee 13:29:15 CDT CPT-39053 Thoracolumbar AP/Lat 15:19:19 WARDROBE MANAGER CPT-G0438 Initial Annual Wellness Exam 12:18:54 WARDROBE MANAGER CPT-00210 Knee 3V 09:57:38 CDT CPT-OV Office Visit 15:45:01 WARDROBE MANAGER CPT-86451 Abd compl w upright 17:10:25 CDT
--- OUTSIDE RECORDS SUMMARY | 2018-07-18 08:44 | XMS REPORT | Clinical Summary ---
Author Author Admin, Bita Organization [employer] Address Unknown Phone Unavailable Allergies, Adverse Reactions, [...] facility Actinic keratoses 702.0 Resolved Piotr Katie Dei DO Actinic keratosis Personal history of malignant [...] Knee pain, left ICD-719.46 Inactive Sirisha Chen MARKETING PLANNER Actinic keratoses ICD-702.0 Inactive Sirisha Chen MARKETING PLANNER Back pain, thoracic region, left ICD-724.1 Inactive Piotr Daley DO Thoracic back pain ICD-724.5 Inactive Sirisha Chen MARKETING PLANNER Back pain lumbar ICD-724.2 Inactive Sirisha Chen MARKETING PLANNER Insect bite ICD-919.4 Inactive Sirisha Chen MARKETING PLANNER Pruritus ICD-698.9 Inactive Sirisha Chen MARKETING PLANNER 04/09 Bronchitis-Acute ICD-466.0 Inactive Sirisha Chen MARKETING PLANNER Dyspnea ICD-786.09 Inactive Sirisha Chen MARKETING PLANNER 05/09 Medication List Medication Instructions Start Date Stop Date Generic Name NDC Status Provider Patient Instruction WARFARIN SODIUM 4 MG ORAL TABLET 1 tablet by mouth daily except 2mg on Saturday and Saturday WARFARIN SODIUM 70590598221 Active Sirisha Chen EZE Active MELOXICAM 15 MG ORAL TABLET 1 po q day for pain with food MELOXICAM 43449503987 Active Piotr Daley DO Active PREDNISONE 10 MG ORAL TABLET 1 tablet by mouth daily PREDNISONE 46563149981 No Longer Active Emelyn Norris Active TESSALON PERLES 100 MG ORAL CAPSULE 1-2 tablet by mouth 3 times daily 04/16 BENZONATATE 93468793190 No Longer Active Emelyn Norris Active PREDNISONE 20 MG ORAL TABLET two tabs by mouth today, then one tab by mouth days two and three PREDNISONE 35799806353 No Longer Active Piotr Daley DO Active CYCLOBENZAPRINE HCL 10 MG ORAL TABLET 1 tablet by mouth three times daily as needed for muscle spasm/pain CYCLOBENZAPRINE HCL 44434236233 Active Sirisha Chen LPN Active ZITHROMAX 250 MG ORAL TABLET Take two (2 ) tablets day one, then one (1) tablet a day for four (4) more days AZITHROMYCIN 01481540657 No Longer Active Piotr Daley DO Active PROAIR HFA 108 (90 BASE) MCG/ACT INHALATION AEROSOL SOLUTION 1-2 puffs four times a day as needed ALBUTEROL SULFATE 81637068044 No Longer Active Emelyn Norris Active DOXYCYCLINE HYCLATE 100 MG ORAL CAPSULE 1 cap by mouth BID x10 days DOXYCYCLINE HYCLATE 26913306501 No Longer Active Nella Harris APRN Active PREDNISONE 20 MG ORAL TABLET 2 tabs daily for 3 days, 1 tab daily for 3 days, 1/2 tab daily for 2 days PREDNISONE 59448947805 No Longer Active Matthew Rangel MD Active TRAMADOL HCL 50 MG ORAL TABLET 1 po tid with ES Tylenol TRAMADOL HCL 39399276162 No Longer Active Matthew Rangel MD Active GABAPENTIN 300 MG ORAL CAPSULE 1 po q hs for nerve pain GABAPENTIN 60370169571 No Longer Active Matthew Rangel MD Active PREDNISONE 20 MG ORAL TABLET 2 tablets today, then 1 tablet days 2 through 4 PREDNISONE 66264859889 No Longer Active Piotr Daley DO Active AZITHROMYCIN 250 MG ORAL TABLET 2 po qd x 1 day, then 1 po qd x 4 days 07/12 AZITHROMYCIN 50900033187 No Longer Active Piotr Daley DO Active IBUPROFEN 800 MG ORAL TABLET 1 tab every 8 hours as needed 07/12 IBUPROFEN 05379055755 No Longer Active Piotr Daley DO Active LOMOTIL 2.5-0.025 MG ORAL TABLET 1 to 2 four times a day as needed for diarrhea DIPHENOXYLATE-ATROPINE 19289193597 No Longer Active Piotr Daley DO Active WARFARIN SODIUM 4 MG ORAL TABLET 1 tab every evening WARFARIN SODIUM 58787283788 No Longer Active Piotr Daley DO Active PREDNISONE 20 MG ORAL TABLET 1 tablet twice daily for 2 days, then 1 tablet once daily for 2 days PREDNISONE 84150393943 No Longer Active Piotr Daley DO Active PROMETHAZINE HCL 25 MG ORAL TABLET 1 four times a day as needed for nausea/ vomiting PROMETHAZINE HCL 94221354415 No Longer Active Piotr Daley DO Active TUSSIONEX PENNKINETIC ER 10-8 MG/5ML ORAL SUSPENSION EXTENDED RELEASE 5ml po q12hr PRN Cough HYDROCOD POLST-CHLORPHEN POLST 48528401079 No Longer Active Piotr Daley DO Active AZITHROMYCIN 250 MG ORAL TABLET 2 po qd x 1 day, then 1 po qd x 4 days 10/13 AZITHROMYCIN 17172703375 No Longer Active Piotr Daley DO Active AZITHROMYCIN 250 MG ORAL TABLET 2 po qd x 1 day, then 1 po qd x 4 days 05/07 AZITHROMYCIN 08594737428 No Longer Active Piotr Daley DO Active LISINOPRIL-HYDROCHLOROTHIAZIDE 10-12.5 MG ORAL TABLET 1 tab by mouth daily LISINOPRIL-HYDROCHLOROTHIAZIDE 23700146402 Active Piotr Daley DO Active LISINOPRIL 10 MG ORAL TABLET 1/2-1 tab po every other day LISINOPRIL 20766997978 No Longer Active Piotr Daley DO Active VENTOLIN HFA 108 (90 Base) MCG/ACT INHALATION AEROSOL SOLUTION 2 puffs four times a day PRN cough ALBUTEROL SULFATE 66545601896 No Longer Active Piotr Daley DO Active NYSTATIN-TRIAMCINOLONE 035699-6.1 UNIT/GM-% EXTERNAL CREAM Apply to area BID NYSTATIN-TRIAMCINOLONE 30162956055 No Longer Active Alena Chavira MARKETING PLANNER Active PHISOHEX 3 % LIQD Use Directed HEXACHLOROPHENE 82788152524 No Longer Active Sandra [place] Active AZITHROMYCIN 250 MG ORAL TABLET 2 po qd x 1 day, then 1 po qd x 4 days 10/21 AZITHROMYCIN 19236053289 No Longer Active Katrina Rinaldi MD PhD Active AZITHROMYCIN 250 MG ORAL TABLET 2 po qd x 1 day, then 1 po qd x 4 days 10/16 AZITHROMYCIN 57021240261 No Longer Active Piotr Daley DO Active AZITHROMYCIN 500 MG INTRAVENOUS SOLUTION RECONSTITUTED 1 po q day AZITHROMYCIN 57440427697 No Longer Active Piotr Daley DO Active NYSTATIN-TRIAMCINOLONE 478938-0.1 UNIT/GM-% EXTERNAL CREAM apply bid NYSTATIN-TRIAMCINOLONE 66044163986 No Longer Active Piotr Daley DO Active IBUPROFEN 800 MG ORAL TABLET 1 po q 8 hours prn pain sparinly IBUPROFEN 48924322201 No Longer Active Piotr Daley DO Active VITAMIN D3 5000 UNIT ORAL CAPSULE 1 po daily CHOLECALCIFEROL 88989058109 Active Piotr Daley DO Active IBUPROFEN 800 MG ORAL TABLET 1 po q 8 hours prn pain sparinly IBUPROFEN 800 MG ORAL TABLET 554745 IBUPROFEN Inactive NYSTATIN-TRIAMCINOLONE 301283-1.1 UNIT/GM-% EXTERNAL CREAM apply bid NYSTATIN-TRIAMCINOLONE 141097-3.1 UNIT/GM-% EXTERNAL CREAM 9911958 NYSTATIN-TRIAMCINOLONE Inactive AZITHROMYCIN 500 MG INTRAVENOUS SOLUTION RECONSTITUTED 1 po q day AZITHROMYCIN 500 MG INTRAVENOUS SOLUTION RECONSTITUTED 37892208596 AZITHROMYCIN Inactive VENTOLIN HFA 108 (90 Base) MCG/ACT INHALATION AEROSOL SOLUTION 2 puffs four times a day PRN cough VENTOLIN HFA 108 (90 Base) MCG/ ACT INHALATION AEROSOL SOLUTION ALBUTEROL SULFATE Inactive LISINOPRIL 10 MG ORAL TABLET 1/2-1 tab po every other day LISINOPRIL 10 MG ORAL TABLET 113874 LISINOPRIL Inactive TUSSIONEX PENNKINETIC ER 10-8 MG/5ML ORAL SUSPENSION EXTENDED RELEASE 5ml po q12hr PRN Cough TUSSIONEX PENNKINETIC ER 10-8 MG/5ML ORAL SUSPENSION EXTENDED RELEASE HYDROCOD POLST-CHLORPHEN POLST Inactive PROMETHAZINE HCL 25 MG ORAL TABLET 1 four times a day as needed for nausea/ vomiting PROMETHAZINE HCL 25 MG ORAL TABLET 223301 PROMETHAZINE HCL Inactive PREDNISONE 20 MG ORAL TABLET 1 tablet twice daily for 2 days, then 1 tablet once daily for 2 days PREDNISONE 20 MG ORAL TABLET 919077 PREDNISONE Inactive WARFARIN SODIUM 4 MG ORAL TABLET 1 tab every evening WARFARIN SODIUM 4 MG ORAL TABLET 441718 WARFARIN SODIUM Inactive LOMOTIL 2.5-0.025 MG ORAL TABLET 1 to 2 four times a day as needed for diarrhea LOMOTIL 2.5-0.025 MG ORAL TABLET 4907244 DIPHENOXYLATE-ATROPINE Inactive IBUPROFEN 800 MG ORAL TABLET 1 tab every 8 hours as needed 07/12 IBUPROFEN 800 MG ORAL TABLET 670874 IBUPROFEN Inactive PREDNISONE 20 MG ORAL TABLET 2 tablets today, then 1 tablet days 2 through 4 PREDNISONE 20 MG ORAL TABLET 272119 PREDNISONE Inactive GABAPENTIN 300 MG ORAL CAPSULE 1 po q hs for nerve pain GABAPENTIN 300 MG ORAL CAPSULE 844607 GABAPENTIN Inactive TRAMADOL HCL 50 MG ORAL TABLET 1 po tid with ES Tylenol TRAMADOL HCL 50 MG ORAL TABLET 553804 TRAMADOL HCL Inactive PROAIR HFA 108 (90 BASE) MCG/ACT INHALATION AEROSOL SOLUTION 1-2 puffs four times a day as needed PROAIR HFA 108 (90 BASE) MCG/ACT INHALATION AEROSOL SOLUTION ALBUTEROL SULFATE Inactive PREDNISONE 20 MG ORAL TABLET two tabs by mouth today, then one tab by mouth days two and three PREDNISONE 20 MG ORAL TABLET 995600 PREDNISONE Inactive TESSALON PERLES 100 MG ORAL CAPSULE 1-2 tablet by mouth 3 times daily 04/16 TESSALON PERLES 100 MG ORAL CAPSULE 133124 BENZONATATE Inactive PREDNISONE 10 MG ORAL TABLET 1 tablet by mouth daily PREDNISONE 10 MG ORAL TABLET 067520 PREDNISONE Inactive AZITHROMYCIN 250 MG ORAL TABLET 2 po qd x 1 day, then 1 po qd x 4 days 10/16 AZITHROMYCIN 250 MG ORAL TABLET 523792 AZITHROMYCIN Inactive AZITHROMYCIN 250 MG ORAL TABLET 2 po qd x 1 day, then 1 po qd x 4 days 10/21 AZITHROMYCIN 250 MG ORAL TABLET 221972 AZITHROMYCIN Inactive NYSTATIN-TRIAMCINOLONE 182140-2.1 UNIT/GM-% EXTERNAL CREAM Apply to area BID NYSTATIN-TRIAMCINOLONE 131090-4.1 UNIT/GM-% EXTERNAL CREAM 0412729 NYSTATIN-TRIAMCINOLONE Inactive AZITHROMYCIN 250 MG ORAL TABLET 2 po qd x 1 day, then 1 po qd x 4 days 05/07 AZITHROMYCIN 250 MG ORAL TABLET 880004 AZITHROMYCIN Inactive AZITHROMYCIN 250 MG ORAL TABLET 2 po qd x 1 day, then 1 po qd x 4 days 10/13 AZITHROMYCIN 250 MG ORAL TABLET 663054 AZITHROMYCIN Inactive AZITHROMYCIN 250 MG ORAL TABLET 2 po qd x 1 day, then 1 po qd x 4 days 07/12 AZITHROMYCIN 250 MG ORAL TABLET 290604 AZITHROMYCIN Inactive PREDNISONE 20 MG ORAL TABLET 2 tabs daily for 3 days, 1 tab daily for 3 days, 1/2 tab daily for 2 days PREDNISONE 20 MG ORAL TABLET 151665 PREDNISONE Inactive DOXYCYCLINE HYCLATE 100 MG ORAL CAPSULE 1 cap by mouth BID x10 days DOXYCYCLINE HYCLATE 100 MG ORAL CAPSULE 6077322 DOXYCYCLINE HYCLATE Inactive ZITHROMAX 250 MG ORAL TABLET Take two (2 ) tablets day one, then one (1) tablet a day for four (4) more days ZITHROMAX 250 MG ORAL TABLET 651975 AZITHROMYCIN Inactive Advance Directives Directive Description Start [...] Measured blood pressure, diastolic 67 mm[Hg] BP pahn blood pressure, systolic 124 mm[Hg] BP sys [...] 18.9-24.9 Encounters Code Encounter Date Provider Facility CPT-39770 Level 3 Est. Patient 15:59:25 SVP RESEARCH & EBUSINESS OPERATIONS Piotr Daley [facility] CPT-72098 Level 3 Est. Patient 12:33:59 SVP RESEARCH [employer] EBUSINESS OPERATIONS Piotr Daley [facility] CPT-13548 Level 3 Est. Patient 15:56:17 SVP RESEARCH [employer] EBUSINESS OPERATIONS Piotr Katie Edi [facility] CPT-98356 Level 3 Est. Patient 10:34:54 SVP RESEARCH [employer] EBUSINESS OPERATIONS Piotr Daley [facility] CPT-02486 Level 3 Est. Patient 17:10:19 CDT Nella Harris APRN [facility] CPT-82706 Level 3 Est. Patient 10:48:17 [employer]P [employer]EARCH [employer] EBUSINESS OPERATIONS Matthew Rangel MD [facility] CPT-58273 Level 4 Est. Patient 17:15:07 [employer]P RESEARCH [employer] EBUSINESS OPERATIONS Piotr Wilson [facility] CPT-00508 Level 3 Est. Patient 12:46:13 [employer]P RESEARCH [employer] EBUSINESS OPERATIONS Piotr Daley [facility] CPT-54015 Level 3 Est. Patient 15:14:31 [employer]P RESEARCH [employer] EBUSINESS OPERATIONS Piotr Daley [facility] CPT-92568 Level 3 Est. Patient 09:20:13 [employer]P [employer]EARCH [employer] EBUSINESS OPERATIONS Piotr Daley [facility] CPT-31018 Level 3 Est. Patient 09:49:40 CDT Piotr Daley [facility] CPT-86069 Level 3 Est. Patient 16:28:11 CDT Piotr Daley [facility] CPT-47734 Level 3 Est. Patient 12:41:58 [employer]P [employer]EARCH [employer] EBUSINESS [employer]PERATIONS Piotr Daley [facility] CPT-60131 Level 3 Est. Patient 09:21:24 CDT Piotr Wilson [facility] CPT-25609 Level 3 Est. Patient 09:21:11 CDT Piotr Wilson [facility] CPT-06537 Level 3 Est. Patient 11:16:29 [employer]P [employer]EARCH [employer] EBUSINESS OPERATIONS Piotr Daley [facility] CPT-30775 Level 3 Est. Patient 18:40:19 [employer]P [employer]EARCH [employer] EBUSINESS OPERATIONS Piotr Daley [facility] CPT-38495 Level 3 Est. Patient 19:30:50 CDT Piotr Daley [facility] CPT-08411 Level 3 Est. Patient 22:06:44 CDT Katrina Rinaldi MD [facility] CPT-24938 Level 3 Est. Patient 14:20:00 CDT Piotr Daley [facility] CPT-90619 Level 3 Est. Patient 14:15:22 [employer]PER[employer] Piotr Daley [facility] CPT-31644 Level 3 Est. Patient 20:19:57 [employer]USINESS [employer]PERATIONS Piotr Daley [facility] CPT-07246 Level 3 Est. Patient 16:44:32 CDT Piotr Daley [facility] CPT-67081 Level 3 Est. Patient 08:48:46 [employer]P [employer]USINESS [employer]PERATIONS Piotr Daley [facility] CPT-39661 Level 3 Est. Patient 21:01:21 CDT Piotr Daley [facility] Procedures Code Procedure Name Date Entry Date Standard Description CPT-17075 Sacroiliac jt < 3V - XRAY USE ONLY 16:45:19 [employer]PER[employer] 05/09 CPT-57314 LS spine comp w obliques - XRAY USE ONLY 14:52:26 [employer]PER[employer] CPT-95027 Chest, 2 views 12:55:58 [employer]PER[employer] CPT-G0439 [facility] Annual Wellness Exam 10:34:52 [employer]P [employer]EARCH [employer]PERATIONS CPT-60851 BMP - LAB USE ONLY 17:19:11 [employer]PER[employer] CPT-52600 PT/INR - LAB USE ONLY 17:19:10 [employer]PER[employer] CPT-33327 Venipuncture Draw Fee 17:19:10 [employer]P [employer]PERATIONS CPT-43485 PT/INR - LAB USE ONLY 08:12:25 [employer]P [employer]EARCH [employer]USINESS OPERATIONS CPT-15643 Venipuncture Draw Fee 08:12:24 [employer]P [employer]EARCH [employer]USINESS OPERATIONS CPT-33082 Venipuncture Draw Fee 11:31:07 SVP RESEARCH [employer]USINESS OPERATIONS CPT-72136 TPSA - LAB USE ONLY 11:31:07 [employer]P [employer]EARCH [employer]PERATIONS CPT-83636 PT/INR - LAB USE ONLY 11:31:07 [employer]P [employer]PER[employer] CPT-G0439 Subsequent Annual Wellness Exam 09:59:29 [employer]P [employer]PERATIONS CPT-46954 Creatinine - LAB USE ONLY 14:37:55 [employer]P [employer]EARCH [employer]PERATIONS CPT-04047 PT/INR - LAB USE ONLY 14:37:55 [employer]P [employer]PERATIONS CPT-71376 Venipuncture Draw Fee 14:37:55 [employer]P [employer]PERATIONS CPT-04186 LS spine comp w obliques - XRAY USE ONLY 12:59:25 [employer]PER[employer] CPT-55017 PT/INR - LAB USE ONLY 13:49:20 CDT CPT-23198 Venipuncture Draw Fee 13:49:19 CDT CPT-36731 PT/INR - LAB USE ONLY 15:48:49 CDT CPT-19858 Venipuncture Draw Fee 15:48:49 CDT CPT-69368 Venipuncture Draw Fee 11:31:59 CDT CPT-98903 PT/INR - LAB USE ONLY 11:31:59 CDT CPT-20142 Venipuncture Draw Fee 13:29:15 CDT CPT-76928 Thoracolumbar AP/Lat 15:19:19 [employer] CPT-G0438 Initial Annual Wellness Exam 12:18:54 [employer] CPT-88570 Knee 3V 09:57:38 CDT CPT-OV Office Visit 15:45:01 [employer]PER[employer] CPT-03859 Abd compl w upright 17:10:25 CDT
[2018-07-18] MEDS ORDERED: ONDANSETRON 4 MG/2 ML (SDV) Z0FRAN IVP PRN (08:45)
[2018-07-18] MEDS ORDERED: PROMETHAZINE INJ 25 MG/ML (PHENERGAN) AMP IVP PRN (08:45)
[2018-07-18] MEDS ORDERED: MEPERIDINE (DEMEROL) INJ 50 MG/ML IVP ONE (08:45)
[2018-07-18] MEDS ORDERED: HYDROcodone/APAP 5 MG/325 MG (LORTAB) TAB PO PRN (08:45)
[2018-07-18] MEDS ORDERED: ACETAMINOPHEN 325 MG TABLET PO PRN (08:45)
[2018-07-18] MEDS ORDERED: HYDROmorphone 2 MG/ML VIAL (DILAUDID) IV ONE (08:45)
[2018-07-18] MEDS ORDERED: morphine INJ 10 MG/ML 1ML (SYR OR VIAL) IVP ONE (08:45)
--- OUTSIDE RECORDS SUMMARY | 2018-07-18 08:45 | XMS REPORT | Clinical Summary ---
Author Author Admin, [employer] [employer] Address Unknown Phone Unavailable Allergies, Adverse Reactions, [...] Coronary atherosclerosis of unspecified type of vessel, [place] or graft Back pain, thoracic region, left 724.1 Inactive Pitor Katie Edi DO Pain in thoracic spine [...] times a day as needed ALBUTEROL SULFATE 73857670066 Active Matthew Rangel MD Active PREDNISONE 20 MG TAB 2 tabs daily for 3 days, 1 tab daily for 3 days, 1/2 tab daily for 2 days PREDNISONE 02024790728 No Longer Active Matthew Rangel MD Active TRAMADOL HCL 50 MG TABS 1 po tid with ES Tylenol TRAMADOL HCL 05161833483 No Longer Active Matthew Rangel MD Active GABAPENTIN 300 MG CAPS 1 po q hs for nerve pain GABAPENTIN 99495305569 No Longer Active Matthew Rangel MD Active WARFARIN SODIUM 5 MG TABS 1 tablet daily WARFARIN SODIUM 21291002131 Active Anahy Loja Active PREDNISONE 20 MG TAB 2 tablets today, then 1 tablet days 2 through 4 PREDNISONE 90265472442 No Longer Active Piotr Daley DO Active AZITHROMYCIN 250 MG TABS 2 po qd x 1 day, then 1 po qd x 4 days AZITHROMYCIN 14799999698 No Longer Active Piotr Daley DO Active IBUPROFEN 800 MG TABS 1 tab every 8 hours as needed IBUPROFEN 80583208501 No Longer Active Piotr Daley DO Active LOMOTIL 2.5-0.025 MG TAB 1 to 2 four times a day as needed for diarrhea 10/13 DIPHENOXYLATE-ATROPINE 48822915783 No Longer Active Piotr Daley DO Active WARFARIN SODIUM 4 MG TABS 1 tab every evening WARFARIN SODIUM 48617968524 No Longer Active Piotr Daley DO Active PREDNISONE 20 MG TAB 1 tablet twice daily for 2 days, then 1 tablet once daily for 2 days PREDNISONE 34769371000 No Longer Active Piotr Daley DO Active PROMETHAZINE HCL 25 MG TABS 1 four times a day as needed for nausea/vomiting PROMETHAZINE HCL 20432305765 No Longer Active Piotr Daley DO Active TUSSIONEX PENNKINETIC ER 10-8 MG/5ML LQCR 5ml po q12hr PRN Cough HYDROCOD POLST-CHLORPHEN POLST 96672189668 No Longer Active Piotr Daley DO Active AZITHROMYCIN 250 MG TABS 2 po qd x 1 day, then 1 po qd x 4 days AZITHROMYCIN 73132235123 No Longer Active Piotr Dalye DO Active AZITHROMYCIN 250 MG TABS 2 po qd x 1 day, then 1 po qd x 4 days AZITHROMYCIN 59038393160 No Longer Active Piotr Daley DO Active LISINOPRIL-HYDROCHLOROTHIAZIDE 10-12.5 MG TABS 1 tab by mouth daily LISINOPRIL-HYDROCHLOROTHIAZIDE 68860655912 Active Catalina Freitas Active LISINOPRIL 10 MG TABS 1/2-1 tab po every other day LISINOPRIL 56857566402 No Longer Active Piotr Daley DO Active VENTOLIN HFA 108 (90 BASE) MCG/ACT AERS 2 puffs four times a day PRN cough ALBUTEROL SULFATE 15990911148 No Longer Active Piotr Daley DO Active NYSTATIN-TRIAMCINOLONE 172026-3.1 UNIT/GM-% CREA Apply to area BID NYSTATIN-TRIAMCINOLONE 99418022925 No Longer Active Alena Chavira [employer] MANIFEST CLERK Active PHISOHEX 3 % LIQD Use Directed HEXACHLOROPHENE 15275891025 No Longer Active Sandra Dentarger Active AZITHROMYCIN 250 MG TABS 2 po qd x 1 day, then 1 po qd x 4 days AZITHROMYCIN 70744230400 No Longer Active Katrina Rinaldi MD PhD Active AZITHROMYCIN 250 MG TABS 2 po qd x 1 day, then 1 po qd x 4 days AZITHROMYCIN 08185118532 No Longer Active Piotr Daley DO Active AZITHROMYCIN 500 MG SOLR 1 po q day AZITHROMYCIN 65831716611 No Longer Active Piotr Daley DO Active NYSTATIN-TRIAMCINOLONE 688196-1.1 UNIT/GM-% CREA apply bid 08/19 NYSTATIN-TRIAMCINOLONE 37194673640 No Longer Active Piotr Daley DO Active IBUPROFEN 800 MG TABS 1 po q 8 hours prn pain sparinly IBUPROFEN 31670961605 No Longer Active Piotr Daley DO Active VITAMIN D3 5000 UNIT CAPS 1 po daily CHOLECALCIFEROL 62865110980 Active Piotr Daley DO Active IBUPROFEN 800 MG TABS 1 po q 8 hours prn pain sparinly IBUPROFEN 800 MG TABS 598588 IBUPROFEN Inactive NYSTATIN-TRIAMCINOLONE 576386-8.1 UNIT/GM-% CREA apply bid 08/19 NYSTATIN-TRIAMCINOLONE 008978-5.1 UNIT/GM-% CREA 6326484 NYSTATIN- TRIAMCINOLONE Inactive AZITHROMYCIN 500 MG SOLR 1 po q day AZITHROMYCIN 500 MG SOLR 42917363149 AZITHROMYCIN Inactive VENTOLIN HFA 108 (90 BASE) MCG/ACT AERS 2 puffs four times a day PRN cough VENTOLIN HFA 108 (90 BASE) MCG/ACT AERS ALBUTEROL SULFATE Inactive LISINOPRIL 10 MG TABS 1/2-1 tab po every other day LISINOPRIL 10 MG TABS 789233 LISINOPRIL Inactive TUSSIONEX PENNKINETIC ER 10-8 MG/5ML LQCR 5ml po q12hr PRN Cough TUSSIONEX PENNKINETIC ER 10-8 MG/5ML LQCR HYDROCOD POLST- CHLORPHEN POLST Inactive PROMETHAZINE HCL 25 MG TABS 1 four times a day as needed for nausea/vomiting PROMETHAZINE HCL 25 MG TABS 678084 PROMETHAZINE HCL Inactive PREDNISONE 20 MG TAB 1 tablet twice daily for 2 days, then 1 tablet once daily for 2 days PREDNISONE 20 MG TAB 491938 PREDNISONE Inactive WARFARIN SODIUM 4 MG TABS 1 tab every evening WARFARIN SODIUM 4 MG TABS 140679 WARFARIN SODIUM Inactive LOMOTIL 2.5-0.025 MG TAB 1 to 2 four times a day as needed for diarrhea 10/13 LOMOTIL 2.5-0.025 MG TAB 4186625 DIPHENOXYLATE-ATROPINE Inactive IBUPROFEN 800 MG TABS 1 tab every 8 hours as needed IBUPROFEN 800 MG TABS 850077 IBUPROFEN Inactive PREDNISONE 20 MG TAB 2 tablets today, then 1 tablet days 2 through 4 PREDNISONE 20 MG TAB 789973 PREDNISONE Inactive GABAPENTIN 300 MG CAPS 1 po q hs for nerve pain GABAPENTIN 300 MG CAPS 312369 GABAPENTIN Inactive TRAMADOL HCL 50 MG TABS 1 po tid with ES Tylenol TRAMADOL HCL 50 MG TABS 856418 TRAMADOL HCL Inactive AZITHROMYCIN 250 MG TABS 2 po qd x 1 day, then 1 po qd x 4 days AZITHROMYCIN 250 MG TABS 7630563 AZITHROMYCIN Inactive AZITHROMYCIN 250 MG TABS 2 po qd x 1 day, then 1 po qd x 4 days AZITHROMYCIN 250 MG TABS 0430879 AZITHROMYCIN Inactive NYSTATIN-TRIAMCINOLONE 719400-8.1 UNIT/GM-% CREA Apply to area BID NYSTATIN-TRIAMCINOLONE 930656-1.1 UNIT/GM-% CREA 7495459 NYSTATIN-TRIAMCINOLONE Inactive AZITHROMYCIN 250 MG TABS 2 po qd x 1 day, then 1 po qd x 4 days AZITHROMYCIN 250 MG TABS 6311956 AZITHROMYCIN Inactive AZITHROMYCIN 250 MG TABS 2 po qd x 1 day, then 1 po qd x 4 days AZITHROMYCIN 250 MG TABS 2127106 AZITHROMYCIN Inactive AZITHROMYCIN 250 MG TABS 2 po qd x 1 day, then 1 po qd x 4 days AZITHROMYCIN 250 MG TABS 4471837 AZITHROMYCIN Inactive PREDNISONE 20 MG TAB 2 tabs daily for 3 days, 1 tab daily for 3 days, 1/2 tab daily for 2 days PREDNISONE 20 MG TAB 489464 PREDNISONE Inactive Advance Directives Directive Description Start [...] Panel - Chemistry sodium, serum 141 mmol/L 328-173 9391/01/24 potassium, serum 4.3 mmol/L 3.5-5.2 chloride, serum [...] % 11.0-15.0 platelet count 172 THOUSAND/UL 10*3/mm3 693-672 1360/04/12 mean platelet volume 8.6 fL 7.5-12.5 Lab Report: Comp. Metabolic Panel - Chemistry sodium, serum 141 mmol/L 108-660 1764/06/28 carbon dioxide, venous blood 31.0 mmol/L 21.0-32.0 [...] 1.0-3.5 Encounters Code Encounter Date Provider Facility CPT-65881 Level 3 Est. Patient 10:48:17 BUSINESS ADVISOR Matthew Rangel MD [facility] CPT-33574 Level 4 Est. Patient 17:15:07 BUSINESS ADVISOR Piotr Daley [facility] CPT-41929 Level 3 Est. Patient 12:46:13 BUSINESS ADVISOR Piotr Daley [facility] CPT-43196 Level 3 Est. Patient 15:14:31 BUSINESS ADVISOR Piotr Daley [facility] CPT-69743 Level 3 Est. Patient 09:20:13 BUSINESS ADVISOR Piotr Daley [facility] CPT-18623 Level 3 Est. Patient 09:49:40 CDT Piotr Wilson [facility] CPT-79724 Level 3 Est. Patient 16:28:11 CDT Piotr Daley [facility] CPT-16651 Level 3 Est. Patient 12:41:58 BUSINESS ADVISOR Piotr Daley [facility] CPT-86830 Level 3 Est. Patient 09:21:24 CDT Piotr Daley [facility] CPT-25545 Level 3 Est. Patient 09:21:11 CDT Piotr Daley [facility] CPT-30812 Level 3 Est. Patient 11:16:29 BUSINESS ADVISOR Piotr Daley [facility] CPT-48459 Level 3 Est. Patient 18:40:19 BUSINESS ADVISOR Piotr Daley [facility] CPT-08060 Level 3 Est. Patient 19:30:50 CDT Piotr Daley [facility] CPT-79184 Level 3 Est. Patient 22:06:44 CDT Katrina Rinaldi MD [facility] CPT-10547 Level 3 Est. Patient 14:20:00 CDT Piotr Daley [facility] CPT-32633 Level 3 Est. Patient 14:15:22 BUSINESS ADVISOR Piotr Daley [facility] CPT-07820 Level 3 Est. Patient 20:19:57 BUSINESS ADVISOR Piort Daley [facility] CPT-55034 Level 3 Est. Patient 16:44:32 CDT Piotr Daley [facility] CPT-28048 Level 3 Est. Patient 08:48:46 BUSINESS ADVISOR Piotr Daley [facility] CPT-51704 Level 3 Est. Patient 21:01:21 CDT Piotr Daley [facility] Procedures Code Procedure Name Date Entry Date Standard Description CPT-68985 BMP - LAB USE ONLY 17:19:11 BUSINESS ADVISOR CPT-74238 PT/INR - LAB USE ONLY 17:19:10 BUSINESS ADVISOR CPT-95220 Venipuncture Draw Fee 17:19:10 BUSINESS ADVISOR CPT-25096 PT/INR - LAB USE ONLY 08:12:25 BUSINESS ADVISOR CPT-66846 Venipuncture Draw Fee 08:12:24 BUSINESS ADVISOR CPT-47388 Venipuncture Draw Fee 11:31:07 BUSINESS ADVISOR CPT-41461 TPSA - LAB USE ONLY 11:31:07 BUSINESS ADVISOR CPT-10470 PT/INR - LAB USE ONLY 11:31:07 BUSINESS ADVISOR CPT-G0439 Subsequent Annual Wellness Exam 09:59:29 BUSINESS ADVISOR CPT-65712 Creatinine - LAB USE ONLY 14:37:55 BUSINESS ADVISOR CPT-17262 PT/INR - LAB USE ONLY 14:37:55 BUSINESS ADVISOR CPT-76933 Venipuncture Draw Fee 14:37:55 BUSINESS ADVISOR CPT-60279 LS spine comp w obliques - XRAY USE ONLY 12:59:25 BUSINESS ADVISOR CPT-95255 PT/INR - LAB USE ONLY 13:49:20 CDT CPT-21696 Venipuncture Draw Fee 13:49:19 CDT CPT-88619 PT/INR - LAB USE ONLY 15:48:49 CDT CPT-46696 Venipuncture Draw Fee 15:48:49 CDT CPT-50895 Venipuncture Draw Fee 11:31:59 CDT CPT-32374 PT/INR - LAB USE ONLY 11:31:59 CDT CPT-77913 Venipuncture Draw Fee 13:29:15 CDT CPT-30086 Thoracolumbar AP/Lat 15:19:19 BUSINESS ADVISOR CPT-G0438 Initial Annual Wellness Exam 12:18:54 BUSINESS ADVISOR CPT-73645 Knee 3V 09:57:38 CDT CPT-OV Office Visit 15:45:01 BUSINESS ADVISOR CPT-86931 Abd compl w upright 17:10:25 CDT
--- OUTSIDE RECORDS SUMMARY | 2018-07-18 08:46 | XMS REPORT | Clinical Summary ---
Author Author Admin, Bita Organization [employer] Address Unknown Phone Unavailable Allergies, Adverse Reactions, [...] of unspecified type of vessel, [place] or graft Back pain, thoracic region, left [...] Knee pain, left ICD-719.46 Inactive Sirisha Chen FRONT DESK ASSOCIATE Actinic keratoses ICD-702.0 Inactive Sirisha Chen FRONT DESK ASSOCIATE Back pain, thoracic region, left ICD-724.1 Inactive Piotr Daley DO Thoracic back pain ICD-724.5 Inactive Sirisha Chen FRONT DESK ASSOCIATE Back pain lumbar ICD-724.2 Inactive Sirisha Chen FRONT DESK ASSOCIATE Insect bite ICD-919.4 Inactive Sirisha Chen FRONT DESK ASSOCIATE Pruritus ICD-698.9 Inactive Sirisha Chen FRONT DESK ASSOCIATE 04/09 Bronchitis-Acute ICD-466.0 Inactive Sirisha Chen FRONT DESK ASSOCIATE Dyspnea ICD-786.09 Inactive Sirisha Chen FRONT DESK ASSOCIATE 05/09 Medication List Medication Instructions Start Date Stop Date Generic Name NDC Status Provider Patient Instruction WARFARIN SODIUM 4 MG ORAL TABLET 1 tablet by mouth daily except 2mg on Saturday and Saturday WARFARIN SODIUM 57327411938 Active Anahy Loja Active MELOXICAM 15 MG ORAL TABLET 1 po q day for pain with food MELOXICAM 63506934193 Active Piotr Daley DO Active PREDNISONE 10 MG ORAL TABLET 1 tablet by mouth daily PREDNISONE 12871689153 No Longer Active Emelyn Norris Active TESSALON PERLES 100 MG ORAL CAPSULE 1-2 tablet by mouth 3 times daily 04/16 BENZONATATE 73625217321 No Longer Active Emelyn Norris Active PREDNISONE 20 MG ORAL TABLET two tabs by mouth today, then one tab by mouth days two and three PREDNISONE 88962268936 No Longer Active Piotr W Edi DO Active CYCLOBENZAPRINE HCL 10 MG ORAL TABLET 1 tablet by mouth three times daily as needed for muscle spasm/pain CYCLOBENZAPRINE HCL 97285469261 Active Sirisha Chen LPN Active ZITHROMAX 250 MG ORAL TABLET Take two (2 ) tablets day one, then one (1) tablet a day for four (4) more days AZITHROMYCIN 65760145047 No Longer Active Piotr Daley DO Active PROAIR HFA 108 (90 BASE) MCG/ACT INHALATION AEROSOL SOLUTION 1-2 puffs four times a day as needed ALBUTEROL SULFATE 43325732349 No Longer Active Emelyn Norris Active DOXYCYCLINE HYCLATE 100 MG ORAL CAPSULE 1 cap by mouth BID x10 days DOXYCYCLINE HYCLATE 43373781260 No Longer Active Nella Harris APRN Active PREDNISONE 20 MG ORAL TABLET 2 tabs daily for 3 days, 1 tab daily for 3 days, 1/2 tab daily for 2 days PREDNISONE 59305952804 No Longer Active Matthew Rangel MD Active TRAMADOL HCL 50 MG ORAL TABLET 1 po tid with ES Tylenol TRAMADOL HCL 18767738137 No Longer Active Matthew Rangel MD Active GABAPENTIN 300 MG ORAL CAPSULE 1 po q hs for nerve pain GABAPENTIN 80934664746 No Longer Active Matthew Rangel MD Active PREDNISONE 20 MG ORAL TABLET 2 tablets today, then 1 tablet days 2 through 4 PREDNISONE 62355058165 No Longer Active Piotr Daley DO Active AZITHROMYCIN 250 MG ORAL TABLET 2 po qd x 1 day, then 1 po qd x 4 days 07/12 AZITHROMYCIN 00848991952 No Longer Active Piotr Daley DO Active IBUPROFEN 800 MG ORAL TABLET 1 tab every 8 hours as needed 07/12 IBUPROFEN 75415606364 No Longer Active Piotr Daley DO Active LOMOTIL 2.5-0.025 MG ORAL TABLET 1 to 2 four times a day as needed for diarrhea DIPHENOXYLATE-ATROPINE 58697487801 No Longer Active Piotr Daley DO Active WARFARIN SODIUM 4 MG ORAL TABLET 1 tab every evening WARFARIN SODIUM 86685405410 No Longer Active Piotr Daley DO Active PREDNISONE 20 MG ORAL TABLET 1 tablet twice daily for 2 days, then 1 tablet once daily for 2 days PREDNISONE 46509779382 No Longer Active Piotr Daley DO Active PROMETHAZINE HCL 25 MG ORAL TABLET 1 four times a day as needed for nausea/ vomiting PROMETHAZINE HCL 59224999415 No Longer Active Piotr Daley DO Active TUSSIONEX PENNKINETIC ER 10-8 MG/5ML ORAL SUSPENSION EXTENDED RELEASE 5ml po q12hr PRN Cough HYDROCOD POLST-CHLORPHEN POLST 57780705996 No Longer Active Piotr Daley DO Active AZITHROMYCIN 250 MG ORAL TABLET 2 po qd x 1 day, then 1 po qd x 4 days 10/13 AZITHROMYCIN 08382848450 No Longer Active Piotr Daley DO Active AZITHROMYCIN 250 MG ORAL TABLET 2 po qd x 1 day, then 1 po qd x 4 days 05/07 AZITHROMYCIN 77711599912 No Longer Active Piotr Daley DO Active LISINOPRIL-HYDROCHLOROTHIAZIDE 10-12.5 MG ORAL TABLET 1 tab by mouth daily LISINOPRIL-HYDROCHLOROTHIAZIDE 46391002303 Active Piotr Daley DO Active LISINOPRIL 10 MG ORAL TABLET 1/2-1 tab po every other day LISINOPRIL 22361870127 No Longer Active Piotr Daley DO Active VENTOLIN HFA 108 (90 Base) MCG/ACT INHALATION AEROSOL SOLUTION 2 puffs four times a day PRN cough ALBUTEROL SULFATE 02344604070 No Longer Active Piotr Daley DO Active NYSTATIN-TRIAMCINOLONE 916680-7.1 UNIT/GM-% EXTERNAL CREAM Apply to area BID NYSTATIN-TRIAMCINOLONE 16580825623 No Longer Active Alena Chavira FRONT DESK ASSOCIATE Active PHISOHEX 3 % LIQD Use Directed HEXACHLOROPHENE 06580861778 No Longer Active Sandra Butler Active AZITHROMYCIN 250 MG ORAL TABLET 2 po qd x 1 day, then 1 po qd x 4 days 10/21 AZITHROMYCIN 49885760547 No Longer Active Katrina Rinaldi MD PhD Active AZITHROMYCIN 250 MG ORAL TABLET 2 po qd x 1 day, then 1 po qd x 4 days 10/16 AZITHROMYCIN 17361170276 No Longer Active Piotr Daley DO Active AZITHROMYCIN 500 MG INTRAVENOUS SOLUTION RECONSTITUTED 1 po q day AZITHROMYCIN 03593545526 No Longer Active Piotr Daley DO Active NYSTATIN-TRIAMCINOLONE 053871-5.1 UNIT/GM-% EXTERNAL CREAM apply bid NYSTATIN-TRIAMCINOLONE 55385658326 No Longer Active Piotr Daley DO Active IBUPROFEN 800 MG ORAL TABLET 1 po q 8 hours prn pain sparinly IBUPROFEN 18437491820 No Longer Active Piotr Daley DO Active VITAMIN D3 5000 UNIT ORAL CAPSULE 1 po daily CHOLECALCIFEROL 08556335326 Active Piotr Daley DO Active IBUPROFEN 800 MG ORAL TABLET 1 po q 8 hours prn pain sparinly IBUPROFEN 800 MG ORAL TABLET 626478 IBUPROFEN Inactive NYSTATIN-TRIAMCINOLONE 085278-8.1 UNIT/GM-% EXTERNAL CREAM apply bid NYSTATIN-TRIAMCINOLONE 749278-3.1 UNIT/GM-% EXTERNAL CREAM 0946189 NYSTATIN-TRIAMCINOLONE Inactive AZITHROMYCIN 500 MG INTRAVENOUS SOLUTION RECONSTITUTED 1 po q day AZITHROMYCIN 500 MG INTRAVENOUS SOLUTION RECONSTITUTED 10939600920 AZITHROMYCIN Inactive VENTOLIN HFA 108 (90 Base) MCG/ACT INHALATION AEROSOL SOLUTION 2 puffs four times a day PRN cough VENTOLIN HFA 108 (90 Base) MCG/ ACT INHALATION AEROSOL SOLUTION ALBUTEROL SULFATE Inactive LISINOPRIL 10 MG ORAL TABLET 1/2-1 tab po every other day LISINOPRIL 10 MG ORAL TABLET 020741 LISINOPRIL Inactive TUSSIONEX PENNKINETIC ER 10-8 MG/5ML ORAL SUSPENSION EXTENDED RELEASE 5ml po q12hr PRN Cough TUSSIONEX PENNKINETIC ER 10-8 MG/5ML ORAL SUSPENSION EXTENDED RELEASE HYDROCOD POLST-CHLORPHEN POLST Inactive PROMETHAZINE HCL 25 MG ORAL TABLET 1 four times a day as needed for nausea/ vomiting PROMETHAZINE HCL 25 MG ORAL TABLET 845151 PROMETHAZINE HCL Inactive PREDNISONE 20 MG ORAL TABLET 1 tablet twice daily for 2 days, then 1 tablet once daily for 2 days PREDNISONE 20 MG ORAL TABLET 033129 PREDNISONE Inactive WARFARIN SODIUM 4 MG ORAL TABLET 1 tab every evening WARFARIN SODIUM 4 MG ORAL TABLET 473244 WARFARIN SODIUM Inactive LOMOTIL 2.5-0.025 MG ORAL TABLET 1 to 2 four times a day as needed for diarrhea LOMOTIL 2.5-0.025 MG ORAL TABLET 2521456 DIPHENOXYLATE-ATROPINE Inactive IBUPROFEN 800 MG ORAL TABLET 1 tab every 8 hours as needed 07/12 IBUPROFEN 800 MG ORAL TABLET 162465 IBUPROFEN Inactive PREDNISONE 20 MG ORAL TABLET 2 tablets today, then 1 tablet days 2 through 4 PREDNISONE 20 MG ORAL TABLET 763611 PREDNISONE Inactive GABAPENTIN 300 MG ORAL CAPSULE 1 po q hs for nerve pain GABAPENTIN 300 MG ORAL CAPSULE 796171 GABAPENTIN Inactive TRAMADOL HCL 50 MG ORAL TABLET 1 po tid with ES Tylenol TRAMADOL HCL 50 MG ORAL TABLET 812637 TRAMADOL HCL Inactive PROAIR HFA 108 (90 BASE) MCG/ACT INHALATION AEROSOL SOLUTION 1-2 puffs four times a day as needed PROAIR HFA 108 (90 BASE) MCG/ACT INHALATION AEROSOL SOLUTION ALBUTEROL SULFATE Inactive PREDNISONE 20 MG ORAL TABLET two tabs by mouth today, then one tab by mouth days two and three PREDNISONE 20 MG ORAL TABLET 458498 PREDNISONE Inactive TESSALON PERLES 100 MG ORAL CAPSULE 1-2 tablet by mouth 3 times daily 04/16 TESSALON PERLES 100 MG ORAL CAPSULE 967361 BENZONATATE Inactive PREDNISONE 10 MG ORAL TABLET 1 tablet by mouth daily PREDNISONE 10 MG ORAL TABLET 418389 PREDNISONE Inactive AZITHROMYCIN 250 MG ORAL TABLET 2 po qd x 1 day, then 1 po qd x 4 days 10/16 AZITHROMYCIN 250 MG ORAL TABLET 619112 AZITHROMYCIN Inactive AZITHROMYCIN 250 MG ORAL TABLET 2 po qd x 1 day, then 1 po qd x 4 days 10/21 AZITHROMYCIN 250 MG ORAL TABLET 152402 AZITHROMYCIN Inactive NYSTATIN-TRIAMCINOLONE 235223-6.1 UNIT/GM-% EXTERNAL CREAM Apply to area BID NYSTATIN-TRIAMCINOLONE 393588-2.1 UNIT/GM-% EXTERNAL CREAM 0255478 NYSTATIN-TRIAMCINOLONE Inactive AZITHROMYCIN 250 MG ORAL TABLET 2 po qd x 1 day, then 1 po qd x 4 days 05/07 AZITHROMYCIN 250 MG ORAL TABLET 207865 AZITHROMYCIN Inactive AZITHROMYCIN 250 MG ORAL TABLET 2 po qd x 1 day, then 1 po qd x 4 days 10/13 AZITHROMYCIN 250 MG ORAL TABLET 436324 AZITHROMYCIN Inactive AZITHROMYCIN 250 MG ORAL TABLET 2 po qd x 1 day, then 1 po qd x 4 days 07/12 AZITHROMYCIN 250 MG ORAL TABLET 118797 AZITHROMYCIN Inactive PREDNISONE 20 MG ORAL TABLET 2 tabs daily for 3 days, 1 tab daily for 3 days, 1/2 tab daily for 2 days PREDNISONE 20 MG ORAL TABLET 066586 PREDNISONE Inactive DOXYCYCLINE HYCLATE 100 MG ORAL CAPSULE 1 cap by mouth BID x10 days DOXYCYCLINE HYCLATE 100 MG ORAL CAPSULE 6328060 DOXYCYCLINE HYCLATE Inactive ZITHROMAX 250 MG ORAL TABLET Take two (2 ) tablets day one, then one (1) tablet a day for four (4) more days ZITHROMAX 250 MG ORAL TABLET 372624 AZITHROMYCIN Inactive Advance Directives Directive Description Start [...] % 11.0-15.0 platelet count 172 THOUSAND/UL 10*3/mm3 297-701 2269/04/12 mean platelet volume 8.6 fL 7.5-12.5 Lab Report: Prothrombin Time Hemochron - Coagulation prothrombin time (patient) 33.0 SECS s 18.9-24.9 Encounters Code Encounter Date Provider Facility CPT-41040 Level 3 Est. Patient 15:59:25 C D REACTOR OPERATOR Piotr Daley [facility] CPT-86469 Level 3 Est. Patient 12:33:59 C D REACTOR OPERATOR Piotr Daley [facility] CPT-54998 Level 3 Est. Patient 15:56:17 C D REACTOR OPERATOR Piotr Daley [facility] CPT-47651 Level 3 Est. Patient 10:34:54 C D REACTOR OPERATOR Piotr Daley [facility] CPT-90713 Level 3 Est. Patient 17:10:19 MALACHI Harris APRN [facility] CPT-03903 Level 3 Est. Patient 10:48:17 C D REACTOR OPERATOR Matthew Rangel MD [facility] CPT-67678 Level 4 Est. Patient 17:15:07 C D REACTOR OPERATOR Piotr Daley [facility] CPT-14698 Level 3 Est. Patient 12:46:13 C D REACTOR OPERATOR Piotr Daley [facility] CPT-62901 Level 3 Est. Patient 15:14:31 C D REACTOR OPERATOR Piotr Katie Daley [facility] CPT-05034 Level 3 Est. Patient 09:20:13 C D REACTOR OPERATOR Piotr Daley [facility] CPT-25325 Level 3 Est. Patient 09:49:40 CDT Piotr Daley [facility] CPT-13345 Level 3 Est. Patient 16:28:11 CDT Piotr Daley [facility] CPT-84278 Level 3 Est. Patient 12:41:58 C D REACTOR OPERATOR Piotr Daley [facility] CPT-54120 Level 3 Est. Patient 09:21:24 CDT Piotr Daley [facility] CPT-31408 Level 3 Est. Patient 09:21:11 CDT Piotr Daley [facility] CPT-88937 Level 3 Est. Patient 11:16:29 C D REACTOR OPERATOR Piotr Daley [facility] CPT-28989 Level 3 Est. Patient 18:40:19 C D REACTOR OPERATOR Piotr Daley [facility] CPT-21667 Level 3 Est. Patient 19:30:50 CDT Piotr Daley [facility] CPT-11744 Level 3 Est. Patient 22:06:44 CDT Katrina Rinaldi MD PhD [facility]-24105 Level 3 Est. Patient 14:20:00 CDT Piotr Daley [facility] CPT-00190 Level 3 Est. Patient 14:15:22 C D REACTOR OPERATOR Piotr Daley [facility] CPT-87225 Level 3 Est. Patient 20:19:57 C D REACTOR OPERATOR Piotr Daley [facility] CPT-98428 Level 3 Est. Patient 16:44:32 CDT Piotr Daley [facility] CPT-52539 Level 3 Est. Patient 08:48:46 C D REACTOR OPERATOR Piotr Daley [facility] CPT-21252 Level 3 Est. Patient 21:01:21 CDT Piotr Daley [facility] Procedures Code Procedure Name Date Entry Date Standard Description CPT-57852 Sacroiliac jt < 3V - XRAY USE ONLY 16:45:19 C D REACTOR OPERATOR 05/09 CPT-59901 LS spine comp w obliques - XRAY USE ONLY 14:52:26 C D REACTOR OPERATOR CPT-50906 Chest, 2 views 12:55:58 C D REACTOR OPERATOR CPT-G0439 Subsequent Annual Wellness Exam 10:34:52 C D REACTOR OPERATOR CPT-36284 BMP - LAB USE ONLY 17:19:11 C D REACTOR OPERATOR CPT-40314 PT/INR - LAB USE ONLY 17:19:10 C D REACTOR OPERATOR CPT-40570 Venipuncture Draw Fee 17:19:10 C D REACTOR OPERATOR CPT-82281 PT/INR - LAB USE ONLY 08:12:25 C D REACTOR OPERATOR CPT-69054 Venipuncture Draw Fee 08:12:24 C D REACTOR OPERATOR CPT-68877 Venipuncture Draw Fee 11:31:07 C D REACTOR OPERATOR CPT-31682 TPSA - LAB USE ONLY 11:31:07 C D REACTOR OPERATOR CPT-02295 PT/INR - LAB USE ONLY 11:31:07 C D REACTOR OPERATOR CPT-G0439 Subsequent Annual Wellness Exam 09:59:29 C D REACTOR OPERATOR CPT-23568 Creatinine - LAB USE ONLY 14:37:55 C D REACTOR OPERATOR CPT-96925 PT/INR - LAB USE ONLY 14:37:55 C D REACTOR OPERATOR CPT-55957 Venipuncture Draw Fee 14:37:55 C D REACTOR OPERATOR CPT-04018 LS spine comp w obliques - XRAY USE ONLY 12:59:25 C D REACTOR OPERATOR CPT-23990 PT/INR - LAB USE ONLY 13:49:20 CDT CPT-84985 Venipuncture Draw Fee 13:49:19 CDT CPT-21302 PT/INR - LAB USE ONLY 15:48:49 CDT CPT-81030 Venipuncture Draw Fee 15:48:49 CDT CPT-61003 Venipuncture Draw Fee 11:31:59 CDT CPT-27343 PT/INR - LAB USE ONLY 11:31:59 CDT CPT-09075 Venipuncture Draw Fee 13:29:15 CDT CPT-93869 Thoracolumbar AP/Lat 15:19:19 C D REACTOR OPERATOR CPT-G0438 Initial Annual Wellness Exam 12:18:54 C D REACTOR OPERATOR CPT-79319 Knee 3V 09:57:38 CDT CPT-OV Office Visit 15:45:01 C D REACTOR OPERATOR CPT-69012 Abd compl w upright 17:10:25 CDT
--- OUTSIDE RECORDS SUMMARY | 2018-07-18 08:46 | XMS REPORT | Clinical Summary ---
Author Author Admin, E Organization [employer] Address Unknown Phone Unavailable Allergies, Adverse [...] lower leg Health maintenance exam V70.0 Active dAriane Rojo LPN Routine general medical examination at a health care facility Actinic keratoses 702.0 Active Piotr Katie Edi DO Actinic keratosis Personal history of malignant neoplasm of prostate V10.46 Active Alina Meyers [employer] Personal history of malignant neoplasm of prostate Coronary artery disease 414.00 Active [facility] [employer] Coronary atherosclerosis of unspecified type of vessel, [place] or graft Back pain, thoracic region, left [...] po tid with ES Tylenol TRAMADOL HCL 90137969070 Active Piotr Daley DO Active WARFARIN SODIUM 5 MG TABS 1 tablet daily except for Saturday and Sat 1/2 tablet. WARFARIN SODIUM 86488944300 Active Hilary Ma MA Active PREDNISONE 20 MG TAB 2 tablets today, then 1 tablet days 2 through 4 PREDNISONE 56133327187 No Longer Active Piotr Daley DO Active AZITHROMYCIN 250 MG TABS 2 po qd x 1 day, then 1 po qd x 4 days AZITHROMYCIN 08460096999 No Longer Active Piotr Daley DO Active IBUPROFEN 800 MG TABS 1 tab every 8 hours as needed IBUPROFEN 07158725961 No Longer Active Piotr Daley DO Active LOMOTIL 2.5-0.025 MG TAB 1 to 2 four times a day as needed for diarrhea 10/13 DIPHENOXYLATE-ATROPINE 38297581782 No Longer Active Piotr Daley DO Active WARFARIN SODIUM 4 MG TABS 1 tab every evening WARFARIN SODIUM 52249183407 No Longer Active Piotr Daley DO Active PREDNISONE 20 MG TAB 1 tablet twice daily for 2 days, then 1 tablet once daily for 2 days PREDNISONE 40499819070 No Longer Active Piotr Daley DO Active PROMETHAZINE HCL 25 MG TABS 1 four times a day as needed for nausea/vomiting PROMETHAZINE HCL 80093387767 No Longer Active Piotr Daley DO Active TUSSIONEX PENNKINETIC ER 10-8 MG/5ML LQCR 5ml po q12hr PRN Cough HYDROCOD POLST-CHLORPHEN POLST 79982332083 No Longer Active Pitor Daley DO Active AZITHROMYCIN 250 MG TABS 2 po qd x 1 day, then 1 po qd x 4 days AZITHROMYCIN 02094665567 No Longer Active Piotr Daley DO Active AZITHROMYCIN 250 MG TABS 2 po qd x 1 day, then 1 po qd x 4 days AZITHROMYCIN 75209921715 No Longer Active Piotr Daley DO Active LISINOPRIL-HYDROCHLOROTHIAZIDE 10-12.5 MG TABS 1 tab by mouth daily LISINOPRIL-HYDROCHLOROTHIAZIDE 22733886916 Active Hilary Ma MA Active LISINOPRIL 10 MG TABS 1/2-1 tab po every other day LISINOPRIL 06597184998 No Longer Active Piotr Daley DO Active VENTOLIN HFA 108 (90 BASE) MCG/ACT AERS 2 puffs four times a day PRN cough ALBUTEROL SULFATE 96620908042 No Longer Active Piotr Daley DO Active NYSTATIN-TRIAMCINOLONE 008014-9.1 UNIT/GM-% CREA Apply to area BID NYSTATIN-TRIAMCINOLONE 20459549008 No Longer Active Alena Chavira OTOLARYNGOLOGY TEACHER Active PHISOHEX 3 % LIQD Use Directed HEXACHLOROPHENE 15528773045 No Longer Active Sandra [place] Active AZITHROMYCIN 250 MG TABS 2 po qd x 1 day, then 1 po qd x 4 days AZITHROMYCIN 17837927862 No Longer Active Katrina Rinaldi MD PhD Active AZITHROMYCIN 250 MG TABS 2 po qd x 1 day, then 1 po qd x 4 days AZITHROMYCIN 43824275381 No Longer Active Piotr Daley DO Active AZITHROMYCIN 500 MG SOLR 1 po q day AZITHROMYCIN 31345636521 No Longer Active Piotr Daley DO Active NYSTATIN-TRIAMCINOLONE 458391-7.1 UNIT/GM-% CREA apply bid 08/19 NYSTATIN-TRIAMCINOLONE 48156787589 No Longer Active Piotr Daley DO Active IBUPROFEN 800 MG TABS 1 po q 8 hours prn pain sparinly IBUPROFEN 86512349465 No Longer Active Piotr Daley DO Active VITAMIN D3 5000 UNIT CAPS 1 po daily CHOLECALCIFEROL 90970664705 Active Piotr Daley DO Active IBUPROFEN 800 MG TABS 1 po q 8 hours prn pain sparinly IBUPROFEN 800 MG TABS 225184 IBUPROFEN Inactive NYSTATIN-TRIAMCINOLONE 654099-8.1 UNIT/GM-% CREA apply bid 08/19 NYSTATIN-TRIAMCINOLONE 714030-9.1 UNIT/GM-% CREA 6966934 NYSTATIN- TRIAMCINOLONE Inactive AZITHROMYCIN 500 MG SOLR 1 po q day AZITHROMYCIN 500 MG SOLR 29495941581 AZITHROMYCIN Inactive VENTOLIN HFA 108 (90 BASE) MCG/ACT AERS 2 puffs four times a day PRN cough VENTOLIN HFA 108 (90 BASE) MCG/ACT AERS ALBUTEROL SULFATE Inactive LISINOPRIL 10 MG TABS 1/2-1 tab po every other day LISINOPRIL 10 MG TABS 983093 LISINOPRIL Inactive TUSSIONEX PENNKINETIC ER 10-8 MG/5ML LQCR 5ml po q12hr PRN Cough TUSSIONEX PENNKINETIC ER 10-8 MG/5ML LQCR HYDROCOD POLST- CHLORPHEN POLST Inactive PROMETHAZINE HCL 25 MG TABS 1 four times a day as needed for nausea/vomiting PROMETHAZINE HCL 25 MG TABS 199056 PROMETHAZINE HCL Inactive PREDNISONE 20 MG TAB 1 tablet twice daily for 2 days, then 1 tablet once daily for 2 days PREDNISONE 20 MG TAB 571037 PREDNISONE Inactive WARFARIN SODIUM 4 MG TABS 1 tab every evening WARFARIN SODIUM 4 MG TABS 155198 WARFARIN SODIUM Inactive LOMOTIL 2.5-0.025 MG TAB 1 to 2 four times a day as needed for diarrhea 10/13 LOMOTIL 2.5-0.025 MG TAB 9805233 DIPHENOXYLATE-ATROPINE Inactive IBUPROFEN 800 MG TABS 1 tab every 8 hours as needed IBUPROFEN 800 MG TABS 835985 IBUPROFEN Inactive PREDNISONE 20 MG TAB 2 tablets today, then 1 tablet days 2 through 4 PREDNISONE 20 MG TAB 010075 PREDNISONE Inactive AZITHROMYCIN 250 MG TABS 2 po qd x 1 day, then 1 po qd x 4 days AZITHROMYCIN 250 MG TABS 1837956 AZITHROMYCIN Inactive AZITHROMYCIN 250 MG TABS 2 po qd x 1 day, then 1 po qd x 4 days AZITHROMYCIN 250 MG TABS 8043119 AZITHROMYCIN Inactive NYSTATIN-TRIAMCINOLONE 264713-5.1 UNIT/GM-% CREA Apply to area BID NYSTATIN-TRIAMCINOLONE 700941-0.1 UNIT/GM-% CREA 1938027 NYSTATIN-TRIAMCINOLONE Inactive AZITHROMYCIN 250 MG TABS 2 po qd x 1 day, then 1 po qd x 4 days AZITHROMYCIN 250 MG TABS 9180115 AZITHROMYCIN Inactive AZITHROMYCIN 250 MG TABS 2 po qd x 1 day, then 1 po qd x 4 days AZITHROMYCIN 250 MG TABS 1813606 AZITHROMYCIN Inactive AZITHROMYCIN 250 MG TABS 2 po qd x 1 day, then 1 po qd x 4 days AZITHROMYCIN 250 MG TABS 6677043 AZITHROMYCIN Inactive Advance Directives Directive Description Start [...] 4.2 mmol/L 3.5-5.2 sodium, serum 140 mmol/L 155-910 5467/07/17 albumin/creatinine ratio, urine < 30 mg/g mg/g{creat} [...] ratio (INR) 1.9 1.0-3.5 prothrombin time (patient) 17.3 SECS s 11.1-13.4 international normalized ratio (INR) 1.99 1.0-3.5 prothrombin time (patient) 18.9 SECS s 11.1-13.4 prothrombin time (patient) 18.3 SECS s 11.1-13.4 international normalized ratio (INR) 2.3 1.0-3.5 prothrombin time (patient) 18.1 SECS s 11.1-13.4 international normalized ratio (INR) 2.2 1.0-3.5 international normalized ratio (INR) 2.4 1.0-3.5 prothrombin time (patient) 19.9 SECS s 11.1-13.4 international normalized ratio (INR) 2.6 1.0-3.5 prothrombin time (patient) 16.6 SECS s 11.1-13.4 international normalized ratio (INR) 1.9 1.0-3.5 prothrombin time (patient) 17.5 SECS s [...] semiquantitative Negative Negative urine color Yellow Colorless;Lightyellow;Straw;Yellow glucose, urine, semiquantitative Negative Negative ketones, urine, by test strip Negative Negative bilirubin, urine Negative Negative appearance, urine Clear Clear specific gravity, urine 1.025 1.000-1.030 pH, urine, semiquantitative 6.0 5.0-8.5 Encounters Code Encounter Date Provider Facility CPT-48825 Level 3 Est. 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 Patient 09:20:13 SOIL FIELD TECHNICIAN Piotr Daley [facility] CPT-65701 Level 3 Est. Patient 09:49:40 CDT Piotr [facility] CPT-27485 Level 3 Est. Patient 16:28:11 CDT Piotr [facility] CPT-52085 Level 3 Est. 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 Patient 09:21:24 CDT Piotr [facility] CPT-36409 Level 3 Est. Patient 09:21:11 CDT Piotr [facility] CPT-08685 Level 3 Est. 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 Patient 18:40:19 SOIL FIELD TECHNICIAN Piotr Daley [facility] CPT-79968 Level 3 Est. Patient 19:30:50 CDT Piotr Daley [facility] CPT-83798 Level 3 Est. Patient 22:06:44 CDT Katrina Rinaldi MD [facility] CPT-65263 Level 3 Est. Patient 14:20:00 CDT Piotr Katie Edi [facility] CPT-74433 Level 3 Est. Patient 14:15:22 SOIL FIELD TECHNICIAN Piotr Wilson Edi [facility] CPT-53379 Level 3 Est. Patient 20:19:57 SOIL FIELD TECHNICIAN Piotr Katie Edi [facility] CPT-51162 Level 3 Est. Patient 16:44:32 CDT Piotr Katie Daley [facility] CPT-65764 Level 3 Est. Patient 08:48:46 SOIL FIELD TECHNICIAN Piotr Katie Edi [facility] CPT-28387 Level 3 Est. Patient 21:01:21 CDT Piotr [facility] Procedures Code Procedure Name Date Entry Date Standard Description CPT-83314 Thoracolumbar AP/Lat 15:19:19 SOIL FIELD TECHNICIAN CPT-G0438 Initial Annual Wellness Exam 12:18:54 SOIL FIELD TECHNICIAN CPT-06451 Knee 3V 09:57:38 CDT CPT-OV Office Visit 15:45:01 SOIL FIELD TECHNICIAN CPT-35922 Abd compl w upright 17:10:25 CDT
[2018-07-18] MEDS ORDERED: HYDR-3812 PO (08:47)
[2018-07-18] MEDS ORDERED: CLIN300C3 PO (08:47)
--- OUTSIDE RECORDS SUMMARY | 2018-07-18 08:47 | XMS REPORT | Clinical Summary ---
Author Author Admin, Isidra Organization [employer] Address Unknown Phone Unavailable Allergies, Adverse Reactions, [...] THROMBOPHLEBITIS, LEG, 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 Inactive [facility] DEEP VENOUS THROMBOPHLEBITIS, LEG, 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 [facility]active [facility] Seborrheic keratosis ICD-702.19 Inactive [facility] Bronchitis-Acute ICD-466.0 Inactive Piotr Daley DO Leg pain, right ICD-729.5 [facility]active [facility] Right leg pain ICD-729.5 Inactive [facility] Bronchitis-Acute ICD-466.0 Inactive [facility] Knee pain, left ICD-719.46 Inactive [facility] Actinic keratoses ICD-702.0 Inactive [facility] Back pain, thoracic region, left ICD-724.1 Inactive Piotr Daley DO Thoracic back pain ICD-724.5 Inactive [facility] Back pain lumbar ICD-724.2 Inactive [facility] Insect bite ICD-919.4 Inactive [facility] Pruritus ICD-698.9 Inactive [facility] 04/09 Medication List Medication Instructions Start Date Stop Date Generic Name NDC Status Provider Patient Instruction TESSALON PERLES 100 MG ORAL CAPSULE 1-2 tablet by mouth 3 times daily 04/16 BENZONATATE 21700175648 Active Piotr Daley DO Active PREDNISONE 10 MG ORAL TABLET 1 tablet by mouth daily PREDNISONE 82528701425 Active Piotr Daley DO Active PREDNISONE 20 MG ORAL TABLET two tabs by mouth today, then one tab by mouth days two and three PREDNISONE 20959693057 No Longer Active Piotr Daley DO Active CYCLOBENZAPRINE HCL 10 MG ORAL TABLET 1 tablet by mouth three times daily as needed for muscle spasm/pain CYCLOBENZAPRINE HCL 42171632280 Active Piotr Daley DO Active ZITHROMAX 250 MG ORAL TABLET Take two (2 ) tablets day one, then one (1) tablet a day for four (4) more days AZITHROMYCIN 34680038654 No Longer Active Piotr Daley DO Active PROAIR HFA 108 (90 BASE) MCG/ACT INHALATION AEROSOL SOLUTION 1-2 puffs four times a day as needed ALBUTEROL SULFATE 73167100297 No Longer Active Emelyn Norris Active DOXYCYCLINE HYCLATE 100 MG ORAL CAPSULE 1 cap by mouth BID x10 days DOXYCYCLINE HYCLATE 34405317072 No Longer Active Nella Harris APRN Active WARFARIN SODIUM 5 MG ORAL TABLET 1 tablet daily M-S, 1/2 tab on Heart WARFARIN SODIUM 85317403334 Active Piotr Daley DO Active PREDNISONE 20 MG ORAL TABLET 2 tabs daily for 3 days, 1 tab daily for 3 days, 1/2 tab daily for 2 days PREDNISONE 11614732445 No Longer Active Matthew Rangel MD Active TRAMADOL HCL 50 MG ORAL TABLET 1 po tid with ES Tylenol TRAMADOL HCL 37928312870 No Longer Active Matthew Rangel MD Active GABAPENTIN 300 MG ORAL CAPSULE 1 po q hs for nerve pain GABAPENTIN 56075442292 No Longer Active Matthew Rangel MD Active PREDNISONE 20 MG ORAL TABLET 2 tablets today, then 1 tablet days 2 through 4 PREDNISONE 85014052335 No Longer Active Piotr Daley DO Active AZITHROMYCIN 250 MG ORAL TABLET 2 po qd x 1 day, then 1 po qd x 4 days 07/12 AZITHROMYCIN 44190708488 No Longer Active Piotr Daley DO Active IBUPROFEN 800 MG ORAL TABLET 1 tab every 8 hours as needed 07/12 IBUPROFEN 61255343065 No Longer Active Piotr Daley DO Active LOMOTIL 2.5-0.025 MG ORAL TABLET 1 to 2 four times a day as needed for diarrhea DIPHENOXYLATE-ATROPINE 29368424700 No Longer Active Piotr Daley DO Active WARFARIN SODIUM 4 MG ORAL TABLET 1 tab every evening WARFARIN SODIUM 90365464860 No Longer Active Piotr Daley DO Active PREDNISONE 20 MG ORAL TABLET 1 tablet twice daily for 2 days, then 1 tablet once daily for 2 days PREDNISONE 92634536242 No Longer Active Piotr Daley DO Active PROMETHAZINE HCL 25 MG ORAL TABLET 1 four times a day as needed for nausea/ vomiting PROMETHAZINE HCL 61203886790 No Longer Active Piotr Daley DO Active TUSSIONEX PENNKINETIC ER 10-8 MG/5ML ORAL SUSPENSION EXTENDED RELEASE 5ml po q12hr PRN Cough HYDROCOD POLST-CHLORPHEN POLST 35320262874 No Longer Active Piotr Daley DO Active AZITHROMYCIN 250 MG ORAL TABLET 2 po qd x 1 day, then 1 po qd x 4 days 10/13 AZITHROMYCIN 99328618050 No Longer Active Piotr Daley DO Active AZITHROMYCIN 250 MG ORAL TABLET 2 po qd x 1 day, then 1 po qd x 4 days 05/07 AZITHROMYCIN 10617275717 No Longer Active Piotr Daley DO Active LISINOPRIL-HYDROCHLOROTHIAZIDE 10-12.5 MG ORAL TABLET 1 tab by mouth daily LISINOPRIL-HYDROCHLOROTHIAZIDE 62370542261 Active Piotr Daley DO Active LISINOPRIL 10 MG ORAL TABLET 1/2-1 tab po every other day LISINOPRIL 33941000657 No Longer Active Piotr Daley DO Active VENTOLIN HFA 108 (90 Base) MCG/ACT INHALATION AEROSOL SOLUTION 2 puffs four times a day PRN cough ALBUTEROL SULFATE 84093744214 No Longer Active Piotr Daley DO Active NYSTATIN-TRIAMCINOLONE 673520-4.1 UNIT/GM-% EXTERNAL CREAM Apply to area BID NYSTATIN-TRIAMCINOLONE 32619471937 No Longer Active [facility] Active PHISOHEX 3 % LIQD Use Directed HEXACHLOROPHENE 60341860525 No Longer Active Sandra Salinas Active AZITHROMYCIN 250 MG ORAL TABLET 2 po qd x 1 day, then 1 po qd x 4 days 10/21 AZITHROMYCIN 12051528947 No Longer Active Katrina Rinaldi MD PhD Active AZITHROMYCIN 250 MG ORAL TABLET 2 po qd x 1 day, then 1 po qd x 4 days 10/16 AZITHROMYCIN 89583879508 No Longer Active Piotr Daley DO Active AZITHROMYCIN 500 MG INTRAVENOUS SOLUTION RECONSTITUTED 1 po q day AZITHROMYCIN 09517600701 No Longer Active Piotr Daley DO Active NYSTATIN-TRIAMCINOLONE 090600-6.1 UNIT/GM-% EXTERNAL CREAM apply bid NYSTATIN-TRIAMCINOLONE 22493592911 No Longer Active Piotr Daley DO Active IBUPROFEN 800 MG ORAL TABLET 1 po q 8 hours prn pain sparinly IBUPROFEN 25990454898 No Longer Active Piotr Daley DO Active VITAMIN D3 5000 UNIT ORAL CAPSULE 1 po daily CHOLECALCIFEROL 07997705181 Active Piotr Daley DO Active IBUPROFEN 800 MG ORAL TABLET 1 po q 8 hours prn pain sparinly IBUPROFEN 800 MG ORAL TABLET 256517 IBUPROFEN Inactive NYSTATIN-TRIAMCINOLONE 164409-3.1 UNIT/GM-% EXTERNAL CREAM apply bid NYSTATIN-TRIAMCINOLONE 639478-7.1 UNIT/GM-% EXTERNAL CREAM 3664937 NYSTATIN-TRIAMCINOLONE Inactive AZITHROMYCIN 500 MG INTRAVENOUS SOLUTION RECONSTITUTED 1 po q day AZITHROMYCIN 500 MG INTRAVENOUS SOLUTION RECONSTITUTED 16828163302 AZITHROMYCIN Inactive VENTOLIN HFA 108 (90 Base) MCG/ACT INHALATION AEROSOL SOLUTION 2 puffs four times a day PRN cough VENTOLIN HFA 108 (90 Base) MCG/ ACT INHALATION AEROSOL SOLUTION ALBUTEROL SULFATE Inactive LISINOPRIL 10 MG ORAL TABLET 1/2-1 tab po every other day LISINOPRIL 10 MG ORAL TABLET 980648 LISINOPRIL Inactive TUSSIONEX PENNKINETIC ER 10-8 MG/5ML ORAL SUSPENSION EXTENDED RELEASE 5ml po q12hr PRN Cough TUSSIONEX PENNKINETIC ER 10-8 MG/5ML ORAL SUSPENSION EXTENDED RELEASE HYDROCOD POLST-CHLORPHEN POLST Inactive PROMETHAZINE HCL 25 MG ORAL TABLET 1 four times a day as needed for nausea/ vomiting PROMETHAZINE HCL 25 MG ORAL TABLET 673838 PROMETHAZINE HCL Inactive PREDNISONE 20 MG ORAL TABLET 1 tablet twice daily for 2 days, then 1 tablet once daily for 2 days PREDNISONE 20 MG ORAL TABLET 934613 PREDNISONE Inactive WARFARIN SODIUM 4 MG ORAL TABLET 1 tab every evening WARFARIN SODIUM 4 MG ORAL TABLET 491868 WARFARIN SODIUM Inactive LOMOTIL 2.5-0.025 MG ORAL TABLET 1 to 2 four times a day as needed for diarrhea LOMOTIL 2.5-0.025 MG ORAL TABLET 3069280 DIPHENOXYLATE-ATROPINE Inactive IBUPROFEN 800 MG ORAL TABLET 1 tab every 8 hours as needed 07/12 IBUPROFEN 800 MG ORAL TABLET 213604 IBUPROFEN Inactive PREDNISONE 20 MG ORAL TABLET 2 tablets today, then 1 tablet days 2 through 4 PREDNISONE 20 MG ORAL TABLET 471893 PREDNISONE Inactive GABAPENTIN 300 MG ORAL CAPSULE 1 po q hs for nerve pain GABAPENTIN 300 MG ORAL CAPSULE 336351 GABAPENTIN Inactive TRAMADOL HCL 50 MG ORAL TABLET 1 po tid with ES Tylenol TRAMADOL HCL 50 MG ORAL TABLET 766222 TRAMADOL HCL Inactive PROAIR HFA 108 (90 BASE) MCG/ACT INHALATION AEROSOL SOLUTION 1-2 puffs four times a day as needed PROAIR HFA 108 (90 BASE) MCG/ACT INHALATION AEROSOL SOLUTION ALBUTEROL SULFATE Inactive PREDNISONE 20 MG ORAL TABLET two tabs by mouth today, then one tab by mouth days two and three PREDNISONE 20 MG ORAL TABLET 976967 PREDNISONE Inactive AZITHROMYCIN 250 MG ORAL TABLET 2 po qd x 1 day, then 1 po qd x 4 days 10/16 AZITHROMYCIN 250 MG ORAL TABLET 260344 AZITHROMYCIN Inactive AZITHROMYCIN 250 MG ORAL TABLET 2 po qd x 1 day, then 1 po qd x 4 days 10/21 AZITHROMYCIN 250 MG ORAL TABLET 428236 AZITHROMYCIN Inactive NYSTATIN-TRIAMCINOLONE 629307-1.1 UNIT/GM-% EXTERNAL CREAM Apply to area BID NYSTATIN-TRIAMCINOLONE 398797-5.1 UNIT/GM-% EXTERNAL CREAM 2749514 NYSTATIN-TRIAMCINOLONE Inactive AZITHROMYCIN 250 MG ORAL TABLET 2 po qd x 1 day, then 1 po qd x 4 days 05/07 AZITHROMYCIN 250 MG ORAL TABLET 365303 AZITHROMYCIN Inactive AZITHROMYCIN 250 MG ORAL TABLET 2 po qd x 1 day, then 1 po qd x 4 days 10/13 AZITHROMYCIN 250 MG ORAL TABLET 898397 AZITHROMYCIN Inactive AZITHROMYCIN 250 MG ORAL TABLET 2 po qd x 1 day, then 1 po qd x 4 days 07/12 AZITHROMYCIN 250 MG ORAL TABLET 394300 AZITHROMYCIN Inactive PREDNISONE 20 MG ORAL TABLET 2 tabs daily for 3 days, 1 tab daily for 3 days, 1/2 tab daily for 2 days PREDNISONE 20 MG ORAL TABLET 672606 PREDNISONE Inactive DOXYCYCLINE HYCLATE 100 MG ORAL CAPSULE 1 cap by mouth BID x10 days DOXYCYCLINE HYCLATE 100 MG ORAL CAPSULE 9563822 DOXYCYCLINE HYCLATE Inactive ZITHROMAX 250 MG ORAL TABLET Take two (2 ) tablets day one, then one (1) tablet a day for four (4) more days ZITHROMAX 250 MG ORAL TABLET 390410 AZITHROMYCIN Inactive Advance Directives Directive Description Start [...] Panel - Chemistry sodium, serum 141 mmol/L 421-258 8531/01/24 potassium, serum 4.3 mmol/L 3.5-5.2 chloride, serum [...] % 11.0-15.0 platelet count 172 THOUSAND/UL 10*3/mm3 820-389 1707/04/12 mean platelet volume 8.6 fL 7.5-12.5 Lab Report: Prothrombin Time - Coagulation prothrombin time (patient) 27.8 SECS s 11.1-13.4 international normalized ratio (INR) 4.2 1.0-3.5 Lab Report: Prothrombin Time Hemochron - Coagulation prothrombin time (patient) 33.0 SECS s 18.9-24.9 Encounters Code Encounter Date Provider Facility CPT-88652 Level 3 Est. Patient 12:33:59 [employer] Piotr Daley [facility] CPT-09812 Level 3 Est. Patient 15:56:17 [employer] Piotr Daley [facility] CPT-54900 Level 3 Est. Patient 10:34:54 [employer] Piotr Daley [facility] CPT-08726 Level 3 Est. Patient 17:10:19 [facility] 3 Est. Patient 10:48:17 [employer]POR[employer] INTERN Matthew Rangel MD [facility] CPT-20115 Level 4 Est. Patient 17:15:07 [employer]POR[employer] INTERN Piotr Daley [facility] CPT-41134 Level 3 Est. Patient 12:46:13 [employer]N Piotr Daley [facility] CPT-54947 Level 3 Est. Patient 15:14:31 [employer]POR[employer] INTERN Piotr Daley [facility] CPT-26982 Level 3 Est. Patient 09:20:13 [employer]POR[employer] INTERN Piotr Wilson [facility] CPT-98077 Level 3 Est. Patient 09:49:40 CDT Piotr W Edi [facility] CPT-49265 Level 3 Est. Patient 16:28:11 CDT Piotr Daley [facility] CPT-54355 Level 3 Est. Patient 12:41:58 [employer] INTERN Piotr Daley [facility] CPT-99783 Level 3 Est. Patient 09:21:24 CDT Piotr Daley [facility] CPT-28790 Level 3 Est. Patient 09:21:11 CDT Piotr Daley [facility] CPT-60173 Level 3 Est. Patient 11:16:29 [employer] INTERN Piotr Daley [facility] CPT-18937 Level 3 Est. Patient 18:40:19 [employer]N Piotr Daley [facility] CPT-24542 Level 3 Est. Patient 19:30:50 CDT Piotr Daley [facility] CPT-37520 Level 3 Est. Patient 22:06:44 CDT Katrina Rinaldi MD PhD [facility] CPT-37735 Level 3 Est. Patient 14:20:00 CDT Piotr Daley [facility] CPT-04319 Level 3 Est. Patient 14:15:22 [employer]N Piotr Daley [facility] CPT-21225 Level 3 Est. Patient 20:19:57 [employer]N Piotr Daley [facility] CPT-38950 Level 3 Est. Patient 16:44:32 CDT Piotr Katie Daley [facility] CPT-17958 Level 3 Est. Patient 08:48:46 [employer] Piotr Daley [facility] CPT-52644 Level 3 Est. Patient 21:01:21 CDT Piotr Katie Edi [facility] Procedures Code Procedure Name Date Entry Date Standard Description CPT-81684 Chest, 2 views 12:55:58 [employer] CPT-G0439 MC Subsequent Annual Wellness Exam 10:34:52 [employer] CPT-71324 BMP - LAB USE ONLY 17:19:11 [employer] CPT-03493 PT/INR - LAB USE ONLY 17:19:10 [employer] CPT-41693 Venipuncture Draw Fee 17:19:10 [employer] CPT-64201 PT/INR - LAB USE ONLY 08:12:25 [employer] CPT-32981 Venipuncture Draw Fee 08:12:24 [employer] CPT-93468 Venipuncture Draw Fee 11:31:07 [employer] CPT-54059 TPSA - LAB USE ONLY 11:31:07 [facility] CPT-08175 PT/INR - LAB USE ONLY 11:31:07 [facility] CPT-G0439 Subsequent Annual Wellness Exam 09:59:29 [facility] CPT-94852 Creatinine - LAB USE ONLY 14:37:55 [facility] CPT-93677 PT/INR - LAB USE ONLY 14:37:55 [facility] CPT-97613 Venipuncture Draw Fee 14:37:55 [facility] CPT-91416 LS spine comp w obliques - XRAY USE ONLY 12:59:25 [employer] CPT-73819 PT/INR - LAB USE ONLY 13:49:20 CDT CPT-70659 Venipuncture Draw Fee 13:49:19 CDT CPT-81550 PT/INR - LAB USE ONLY 15:48:49 CDT CPT-59674 Venipuncture Draw Fee 15:48:49 CDT CPT-41811 Venipuncture Draw Fee 11:31:59 CDT CPT-01409 PT/INR - LAB USE ONLY 11:31:59 CDT CPT-96112 Venipuncture Draw Fee 13:29:15 CDT CPT-12553 Thoracolumbar AP/Lat 15:19:19 [employer] CPT-G0438 Initial Annual Wellness Exam 12:18:54 [employer] CPT-55666 Knee 3V 09:57:38 CDT CPT-OV Office Visit 15:45:01 [employer] CPT-71687 Abd compl w upright 17:10:25 CDT
--- OUTSIDE RECORDS SUMMARY | 2018-07-18 08:48 | XMS REPORT | Clinical Summary ---
Author Author Admin, E Organization [employer] Address Unknown Phone Unavailable Allergies, Adverse Reactions, [...] of prostate V10.46 Active Alina Meyers COGNOS ANALYST Personal history of malignant neoplasm of [...] neuropathy Insect bite 919.4 Active Nella Harris COGNOS ANALYST Insect bite, nonvenomous, of other, multiple, and unspecified sites, without mention of infection Pruritus 698.9 Active Nella Harris COGNOS ANALYST Unspecified pruritic disorder FLANK PAIN, RIGHT ICD-789.09 [...] Provider Patient Instruction DOXYCYCLINE HYCLATE 100 MG ORAL CAPSULE 1 cap by mouth BID x10 days DOXYCYCLINE HYCLATE 66555744718 No Longer Active Nella Harris APRN Active WARFARIN SODIUM 5 MG ORAL TABLET 1 tablet daily M-S, 1/2 tab on Heart WARFARIN SODIUM 98656504289 Active Anahy Loja Active PROAIR HFA 108 (90 Base) MCG/ACT INHALATION AEROSOL SOLUTION 1-2 puffs four times a day as needed ALBUTEROL SULFATE 64139128373 Active Matthew Rangel MD Active PREDNISONE 20 MG ORAL TABLET 2 tabs daily for 3 days, 1 tab daily for 3 days, 1/2 tab daily for 2 days PREDNISONE 70976537842 No Longer Active Matthew Rangel MD Active TRAMADOL HCL 50 MG ORAL TABLET 1 po tid with ES Tylenol TRAMADOL HCL 89937992514 No Longer Active Matthew Rangel MD Active GABAPENTIN 300 MG ORAL CAPSULE 1 po q hs for nerve pain GABAPENTIN 72819238532 No Longer Active Matthew Rangel MD Active PREDNISONE 20 MG ORAL TABLET 2 tablets today, then 1 tablet days 2 through 4 PREDNISONE 14068975628 No Longer Active Piotr Daley DO Active AZITHROMYCIN 250 MG ORAL TABLET 2 po qd x 1 day, then 1 po qd x 4 days 07/12 AZITHROMYCIN 46029615558 No Longer Active Piotr Daley DO Active IBUPROFEN 800 MG ORAL TABLET 1 tab every 8 hours as needed 07/12 IBUPROFEN 79285287346 No Longer Active Piotr Daley DO Active LOMOTIL 2.5-0.025 MG ORAL TABLET 1 to 2 four times a day as needed for diarrhea DIPHENOXYLATE-ATROPINE 67428658403 No Longer Active Piotr Daley DO Active WARFARIN SODIUM 4 MG ORAL TABLET 1 tab every evening WARFARIN SODIUM 68965303693 No Longer Active Piotr Daley DO Active PREDNISONE 20 MG ORAL TABLET 1 tablet twice daily for 2 days, then 1 tablet once daily for 2 days PREDNISONE 81775114130 No Longer Active Piotr Daley DO Active PROMETHAZINE HCL 25 MG ORAL TABLET 1 four times a day as needed for nausea/ vomiting PROMETHAZINE HCL 33853067944 No Longer Active Piotr Daley DO Active TUSSIONEX PENNKINETIC ER 10-8 MG/5ML ORAL SUSPENSION EXTENDED RELEASE 5ml po q12hr PRN Cough HYDROCOD POLST-CHLORPHEN POLST 40384648234 No Longer Active Piotr Daley DO Active AZITHROMYCIN 250 MG ORAL TABLET 2 po qd x 1 day, then 1 po qd x 4 days 10/13 AZITHROMYCIN 85114474195 No Longer Active Piotr Daley DO Active AZITHROMYCIN 250 MG ORAL TABLET 2 po qd x 1 day, then 1 po qd x 4 days 05/07 AZITHROMYCIN 98193563785 No Longer Active Piotr Daley DO Active LISINOPRIL-HYDROCHLOROTHIAZIDE 10-12.5 MG ORAL TABLET 1 tab by mouth daily LISINOPRIL-HYDROCHLOROTHIAZIDE 79730405518 Active Catalina Freitas Active LISINOPRIL 10 MG ORAL TABLET 1/2-1 tab po every other day LISINOPRIL 99728565739 No Longer Active Piotr Daley DO Active VENTOLIN HFA 108 (90 Base) MCG/ACT INHALATION AEROSOL SOLUTION 2 puffs four times a day PRN cough ALBUTEROL SULFATE 24458939375 No Longer Active Piotr Daley DO Active NYSTATIN-TRIAMCINOLONE 027103-8.1 UNIT/GM-% EXTERNAL CREAM Apply to area BID NYSTATIN-TRIAMCINOLONE 37946167472 No Longer Active Alena Chavira REAL ESTATE ASSET MANAGER Active PHISOHEX 3 % LIQD Use Directed HEXACHLOROPHENE 67949706430 No Longer Active Sandra Cornelia Active AZITHROMYCIN 250 MG ORAL TABLET 2 po qd x 1 day, then 1 po qd x 4 days 10/21 AZITHROMYCIN 27815936342 No Longer Active Katrina Rinaldi MD PhD Active AZITHROMYCIN 250 MG ORAL TABLET 2 po qd x 1 day, then 1 po qd x 4 days 10/16 AZITHROMYCIN 19290952497 No Longer Active Piotr Daley DO Active AZITHROMYCIN 500 MG INTRAVENOUS SOLUTION RECONSTITUTED 1 po q day AZITHROMYCIN 01648592665 No Longer Active Piotr Daley DO Active NYSTATIN-TRIAMCINOLONE 124369-2.1 UNIT/GM-% EXTERNAL CREAM apply bid NYSTATIN-TRIAMCINOLONE 27345566983 No Longer Active Piotr Daley DO Active IBUPROFEN 800 MG ORAL TABLET 1 po q 8 hours prn pain sparinly IBUPROFEN 24175256993 No Longer Active Piotr Daley DO Active VITAMIN D3 5000 UNIT ORAL CAPSULE 1 po daily CHOLECALCIFEROL 55694339263 Active Piotr Daley DO Active IBUPROFEN 800 MG ORAL TABLET 1 po q 8 hours prn pain sparinly IBUPROFEN 800 MG ORAL TABLET 524510 IBUPROFEN Inactive NYSTATIN-TRIAMCINOLONE 690750-5.1 UNIT/GM-% EXTERNAL CREAM apply bid NYSTATIN-TRIAMCINOLONE 228482-9.1 UNIT/GM-% EXTERNAL CREAM 9769147 NYSTATIN-TRIAMCINOLONE Inactive AZITHROMYCIN 500 MG INTRAVENOUS SOLUTION RECONSTITUTED 1 po q day AZITHROMYCIN 500 MG INTRAVENOUS SOLUTION RECONSTITUTED 77864534619 AZITHROMYCIN Inactive VENTOLIN HFA 108 (90 Base) MCG/ACT INHALATION AEROSOL SOLUTION 2 puffs four times a day PRN cough VENTOLIN HFA 108 (90 Base) MCG/ ACT INHALATION AEROSOL SOLUTION ALBUTEROL SULFATE Inactive LISINOPRIL 10 MG ORAL TABLET 1/2-1 tab po every other day LISINOPRIL 10 MG ORAL TABLET 778405 LISINOPRIL Inactive TUSSIONEX PENNKINETIC ER 10-8 MG/5ML ORAL SUSPENSION EXTENDED RELEASE 5ml po q12hr PRN Cough TUSSIONEX PENNKINETIC ER 10-8 MG/5ML ORAL SUSPENSION EXTENDED RELEASE HYDROCOD POLST-CHLORPHEN POLST Inactive PROMETHAZINE HCL 25 MG ORAL TABLET 1 four times a day as needed for nausea/ vomiting PROMETHAZINE HCL 25 MG ORAL TABLET 688601 PROMETHAZINE HCL Inactive PREDNISONE 20 MG ORAL TABLET 1 tablet twice daily for 2 days, then 1 tablet once daily for 2 days PREDNISONE 20 MG ORAL TABLET 244634 PREDNISONE Inactive WARFARIN SODIUM 4 MG ORAL TABLET 1 tab every evening WARFARIN SODIUM 4 MG ORAL TABLET 535970 WARFARIN SODIUM Inactive LOMOTIL 2.5-0.025 MG ORAL TABLET 1 to 2 four times a day as needed for diarrhea LOMOTIL 2.5-0.025 MG ORAL TABLET 4025353 DIPHENOXYLATE-ATROPINE Inactive IBUPROFEN 800 MG ORAL TABLET 1 tab every 8 hours as needed 07/12 IBUPROFEN 800 MG ORAL TABLET 981459 IBUPROFEN Inactive PREDNISONE 20 MG ORAL TABLET 2 tablets today, then 1 tablet days 2 through 4 PREDNISONE 20 MG ORAL TABLET 570614 PREDNISONE Inactive GABAPENTIN 300 MG ORAL CAPSULE 1 po q hs for nerve pain GABAPENTIN 300 MG ORAL CAPSULE 387288 GABAPENTIN Inactive TRAMADOL HCL 50 MG ORAL TABLET 1 po tid with ES Tylenol TRAMADOL HCL 50 MG ORAL TABLET 551841 TRAMADOL HCL Inactive AZITHROMYCIN 250 MG ORAL TABLET 2 po qd x 1 day, then 1 po qd x 4 days 10/16 AZITHROMYCIN 250 MG ORAL TABLET 583125 AZITHROMYCIN Inactive AZITHROMYCIN 250 MG ORAL TABLET 2 po qd x 1 day, then 1 po qd x 4 days 10/21 AZITHROMYCIN 250 MG ORAL TABLET 246865 AZITHROMYCIN Inactive NYSTATIN-TRIAMCINOLONE 065556-1.1 UNIT/GM-% EXTERNAL CREAM Apply to area BID NYSTATIN-TRIAMCINOLONE 432629-5.1 UNIT/GM-% EXTERNAL CREAM 7214201 NYSTATIN-TRIAMCINOLONE Inactive AZITHROMYCIN 250 MG ORAL TABLET 2 po qd x 1 day, then 1 po qd x 4 days 05/07 AZITHROMYCIN 250 MG ORAL TABLET 935186 AZITHROMYCIN Inactive AZITHROMYCIN 250 MG ORAL TABLET 2 po qd x 1 day, then 1 po qd x 4 days 10/13 AZITHROMYCIN 250 MG ORAL TABLET 633498 AZITHROMYCIN Inactive AZITHROMYCIN 250 MG ORAL TABLET 2 po qd x 1 day, then 1 po qd x 4 days 07/12 AZITHROMYCIN 250 MG ORAL TABLET 488596 AZITHROMYCIN Inactive PREDNISONE 20 MG ORAL TABLET 2 tabs daily for 3 days, 1 tab daily for 3 days, 1/2 tab daily for 2 days PREDNISONE 20 MG ORAL TABLET 876234 PREDNISONE Inactive DOXYCYCLINE HYCLATE 100 MG ORAL CAPSULE 1 cap by mouth BID x10 days DOXYCYCLINE HYCLATE 100 MG ORAL CAPSULE 1133927 DOXYCYCLINE HYCLATE Inactive Advance Directives Directive Description [...] Panel - Chemistry sodium, serum 141 mmol/L 854-741 9597/01/24 potassium, serum 4.3 mmol/L 3.5-5.2 chloride, serum [...] % 11.0-15.0 platelet count 172 THOUSAND/UL 10*3/mm3 819-726 9254/04/12 mean platelet volume 8.6 fL 7.5-12.5 Lab [...] 18.9-24.9 Encounters Code Encounter Date Provider Facility CPT-28612 Level 3 Est. Patient 17:10:19 CDT Nella Harris APRN [facility] CPT-12238 Level 3 Est. Patient 10:48:17 [employer] Matthew Rangel MD [facility] CPT-90526 Level 4 Est. Patient 17:15:07 [employer] Piotr Daley [facility] CPT-80966 Level 3 Est. Patient 12:46:13 [employer] Piotr Daley [facility] CPT-85381 Level 3 Est. Patient 15:14:31 [employer] Piotr Daley [facility] CPT-99238 Level 3 Est. Patient 09:20:13 [employer] Piotr Daley [facility] CPT-95110 Level 3 Est. Patient 09:49:40 CDT Piotr [facility] CPT-65476 Level 3 Est. Patient 16:28:11 CDT Piotr Daley [facility] CPT-98886 Level 3 Est. Patient 12:41:58 [employer] Piotr Daley [facility] CPT-98796 Level 3 Est. Patient 09:21:24 CDT Piotr Daley [facility] CPT-67740 Level 3 Est. Patient 09:21:11 CDT Piotr Daley [facility] CPT-83206 Level 3 Est. Patient 11:16:29 [employer] Piotr Daley [facility] CPT-24746 Level 3 Est. Patient 18:40:19 [employer] Piotr Daley [facility] CPT-62797 Level 3 Est. Patient 19:30:50 CDT Piotr Daley [facility] CPT-67831 Level 3 Est. Patient 22:06:44 CDT Katrina Rinaldi MD PhD [facility] CPT-62587 Level 3 Est. Patient 14:20:00 CDT Piotr Daley [facility] CPT-86977 Level 3 Est. Patient 14:15:22 [employer] Piotr Daley [facility] CPT-06403 Level 3 Est. Patient 20:19:57 [employer] Piotr Daley [facility] CPT-31683 Level 3 Est. Patient 16:44:32 CDT Piotr Katie Daley [facility] CPT-04034 Level 3 Est. Patient 08:48:46 [employer] Piotr Daley [facility] CPT-18022 Level 3 Est. Patient 21:01:21 CDT Piotr Daley [facility] Procedures Code Procedure Name Date Entry Date Standard Description CPT-41518 BMP - LAB USE ONLY 17:19:11 [employer] CPT-38445 PT/INR - LAB USE ONLY 17:19:10 [employer] CPT-50260 Venipuncture Draw Fee 17:19:10 [employer] CPT-99176 PT/INR - LAB USE ONLY 08:12:25 [employer] CPT-38264 Venipuncture Draw Fee 08:12:24 [employer] CPT-12848 Venipuncture Draw Fee 11:31:07 [employer] CPT-87479 TPSA - LAB USE ONLY 11:31:07 [employer] CPT-10968 PT/INR - LAB USE ONLY 11:31:07 [employer] CPT-G0439 [facility] Annual Wellness Exam 09:59:29 [employer] CPT-41629 Creatinine - LAB USE ONLY 14:37:55 [employer] CPT-57229 PT/INR - LAB USE ONLY 14:37:55 [employer] CPT-43768 Venipuncture Draw Fee 14:37:55 [employer] CPT-73771 LS spine comp w obliques - XRAY USE ONLY 12:59:25 [employer] CPT-70310 PT/INR - LAB USE ONLY 13:49:20 CDT CPT-65415 Venipuncture Draw Fee 13:49:19 CDT CPT-39637 PT/INR - LAB USE ONLY 15:48:49 CDT CPT-03234 Venipuncture Draw Fee 15:48:49 CDT CPT-32887 Venipuncture Draw Fee 11:31:59 CDT CPT-45591 PT/INR - LAB USE ONLY 11:31:59 CDT CPT-61000 Venipuncture Draw Fee 13:29:15 CDT CPT-27904 Thoracolumbar AP/Lat 15:19:19 [employer] CPT-G0438 Initial Annual Wellness Exam 12:18:54 [employer] CPT-42637 Knee 3V 09:57:38 CDT CPT-OV Office Visit 15:45:01 [employer] CPT-60425 Abd compl w upright 17:10:25 CDT
--- OUTSIDE RECORDS SUMMARY | 2018-07-18 08:49 | XMS REPORT | Clinical Summary ---
Author Author Admin, YONG Organization [facility] Address Unknown Phone Unavailable Allergies, Adverse [...] 1 tablet days 2 through 4 PREDNISONE 69836928236 Active Piotr Daley DO Active AZITHROMYCIN 250 MG TABS 2 po qd x 1 day, then 1 po qd x 4 days AZITHROMYCIN 69461880961 Active Piotr Daley DO Active IBUPROFEN 800 MG TABS 1 tab every 8 hours as needed IBUPROFEN 47635247344 No Longer Active Piotr Daley DO Active LOMOTIL 2.5-0.025 MG TAB 1 to 2 four times a day as needed for diarrhea 10/13 DIPHENOXYLATE-ATROPINE 04779445936 No Longer Active Piotr Daley DO Active WARFARIN SODIUM 5 MG TABS 1 tablet daily except for Saturday and 04/09 tablet. WARFARIN SODIUM 37601463430 Active Piotr Daley DO Active WARFARIN SODIUM 4 MG TABS 1 tab every evening WARFARIN SODIUM 13521918908 No Longer Active Piotr Daley DO Active PREDNISONE 20 MG TAB 1 tablet twice daily for 2 days, then 1 tablet once daily for 2 days PREDNISONE 61985941054 No Longer Active Piotr Daley DO Active PROMETHAZINE HCL 25 MG TABS 1 four times a day as needed for nausea/vomiting PROMETHAZINE HCL 40204084139 No Longer Active Piotr Daley DO Active TUSSIONEX PENNKINETIC ER 10-8 MG/5ML LQCR 5ml po q12hr PRN Cough HYDROCOD POLST-CHLORPHEN POLST 41315053460 No Longer Active Piotr Daley DO Active AZITHROMYCIN 250 MG TABS 2 po qd x 1 day, then 1 po qd x 4 days AZITHROMYCIN 87219648368 No Longer Active Piotr Daley DO Active AZITHROMYCIN 250 MG TABS 2 po qd x 1 day, then 1 po qd x 4 days AZITHROMYCIN 98773987063 No Longer Active Piotr Daley DO Active LISINOPRIL-HYDROCHLOROTHIAZIDE 10-12.5 MG TABS 1 tab by mouth daily LISINOPRIL-HYDROCHLOROTHIAZIDE 76772509962 Active Piotr Daley DO Active LISINOPRIL 10 MG TABS 1/2-1 tab po every other day LISINOPRIL 18120693462 No Longer Active Piotr Daley DO Active VENTOLIN HFA 108 (90 BASE) MCG/ACT AERS 2 puffs four times a day PRN cough ALBUTEROL SULFATE 57238311989 No Longer Active Piotr Daley DO Active NYSTATIN-TRIAMCINOLONE 646311-1.1 UNIT/GM-% CREA Apply to area BID NYSTATIN-TRIAMCINOLONE 32043681262 No Longer Active Alena Chavira FURNACE CHARGING MACHINE OPERATOR Active PHISOHEX 3 % LIQD Use Directed HEXACHLOROPHENE 16900066092 No Longer Active Sandra Canton Active AZITHROMYCIN 250 MG TABS 2 po qd x 1 day, then 1 po qd x 4 days AZITHROMYCIN 37870752058 No Longer Active Katrina Rinaldi MD PhD Active AZITHROMYCIN 250 MG TABS 2 po qd x 1 day, then 1 po qd x 4 days AZITHROMYCIN 90106099740 No Longer Active Piotr Daley DO Active AZITHROMYCIN 500 MG SOLR 1 po q day AZITHROMYCIN 53976360329 No Longer Active Piotr Daley DO Active NYSTATIN-TRIAMCINOLONE 407247-5.1 UNIT/GM-% CREA apply bid 08/19 NYSTATIN-TRIAMCINOLONE 00035520183 No Longer Active Piotr Daley DO Active IBUPROFEN 800 MG TABS 1 po q 8 hours prn pain sparinly IBUPROFEN 38526447592 No Longer Active Piotr Daley DO Active VITAMIN D3 5000 UNIT CAPS 1 po daily CHOLECALCIFEROL 28474771897 Active Piotr Daley DO Active IBUPROFEN 800 MG TABS 1 po q 8 hours prn pain sparinly IBUPROFEN 800 MG TABS 376278 IBUPROFEN Inactive NYSTATIN-TRIAMCINOLONE 612208-2.1 UNIT/GM-% CREA apply bid 08/19 NYSTATIN-TRIAMCINOLONE 819354-6.1 UNIT/GM-% CREA 5593449 NYSTATIN- TRIAMCINOLONE Inactive AZITHROMYCIN 500 MG SOLR 1 po q day AZITHROMYCIN 500 MG SOLR 356235 AZITHROMYCIN Inactive VENTOLIN HFA 108 (90 BASE) MCG/ACT AERS 2 puffs four times a day PRN cough VENTOLIN HFA 108 (90 BASE) MCG/ACT AERS ALBUTEROL SULFATE Inactive LISINOPRIL 10 MG TABS 1/2-1 tab po every other day LISINOPRIL 10 MG TABS 492491 LISINOPRIL Inactive TUSSIONEX PENNKINETIC ER 10-8 MG/5ML LQCR 5ml po q12hr PRN Cough TUSSIONEX PENNKINETIC ER 10-8 MG/5ML LQCR HYDROCOD POLST- CHLORPHEN POLST Inactive PROMETHAZINE HCL 25 MG TABS 1 four times a day as needed for nausea/vomiting PROMETHAZINE HCL 25 MG TABS 621789 PROMETHAZINE HCL Inactive PREDNISONE 20 MG TAB 1 tablet twice daily for 2 days, then 1 tablet once daily for 2 days PREDNISONE 20 MG TAB 336891 PREDNISONE Inactive WARFARIN SODIUM 4 MG TABS 1 tab every evening WARFARIN SODIUM 4 MG TABS 086090 WARFARIN SODIUM Inactive LOMOTIL 2.5-0.025 MG TAB 1 to 2 four times a day as needed for diarrhea 10/13 LOMOTIL 2.5-0.025 MG TAB 1046331 DIPHENOXYLATE-ATROPINE Inactive IBUPROFEN 800 MG TABS 1 tab every 8 hours as needed IBUPROFEN 800 MG TABS 161870 IBUPROFEN Inactive AZITHROMYCIN 250 MG TABS 2 po qd x 1 day, then 1 po qd x 4 days AZITHROMYCIN 250 MG TABS 0352263 AZITHROMYCIN Inactive AZITHROMYCIN 250 MG TABS 2 po qd x 1 day, then 1 po qd x 4 days AZITHROMYCIN 250 MG TABS 4961294 AZITHROMYCIN Inactive NYSTATIN-TRIAMCINOLONE 342949-7.1 UNIT/GM-% CREA Apply to area BID NYSTATIN-TRIAMCINOLONE 150977-4.1 UNIT/GM-% CREA 8441004 NYSTATIN-TRIAMCINOLONE Inactive AZITHROMYCIN 250 MG TABS 2 po qd x 1 day, then 1 po qd x 4 days AZITHROMYCIN 250 MG TABS 2889446 AZITHROMYCIN Inactive AZITHROMYCIN 250 MG TABS 2 po qd x 1 day, then 1 po qd x 4 days AZITHROMYCIN 250 MG TABS 3462616 AZITHROMYCIN Inactive Vital Signs Date Name Value [...] Prothrombin Time - Coagulation prothrombin time (patient) 16.0 SECS s 11.1-13.4 [...] ... - Chemistry sodium, serum 142 mmol/L 178-973 4700/12/01 potassium, serum 4.7 mmol/L 3.5-5.2 chloride, serum [...] 142-424 Encounters Code Encounter Date Provider Facility CPT-27185 Level 3 Est. Patient 16:28:11 CDT Piotr Daley [facility] CPT-31386 Level 3 Est. 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 Patient 09:21:24 CDT Piotr Daley [facility] CPT-87306 Level 3 Est. Patient 09:21:11 CDT Piotr Daley [facility] CPT-38690 Level 3 Est. Patient 11:16:29 SOUND INSTALLATION WORKER Piotr Daley [facility] CPT-22677 Level 3 Est. Patient 18:40:19 SOUND INSTALLATION WORKER Piotr Daley [facility] CPT-65999 Level 3 Est. Patient 19:30:50 CDT Piotr Daley [facility] CPT-70994 Level 3 Est. Patient 22:06:44 CDT Katrina Rinaldi MD PhD [facility] CPT-44078 Level 3 Est. Patient 14:20:00 CDT Piotr Daley [facility] CPT-19573 Level 3 Est. Patient 14:15:22 SOUND INSTALLATION WORKER Piotr Daley [facility] CPT-90936 Level 3 Est. Patient 20:19:57 SOUND INSTALLATION WORKER Piotr Daley [facility] CPT-70830 Level 3 Est. Patient 16:44:32 CDT Piotr Daley [facility] CPT-89471 Level 3 Est. Patient 08:48:46 SOUND INSTALLATION WORKER Piotr Daley [facility] CPT-40600 Level 3 Est. Patient 21:01:21 CDT Piotr [facility] Procedures Code Procedure Name Date Entry Date Standard Description CPT-OV Office Visit 15:45:01 SOUND INSTALLATION WORKER CPT-10892 Abd compl w upright 17:10:25 CDT
--- OUTSIDE RECORDS SUMMARY | 2018-07-18 08:49 | XMS REPORT | Clinical Summary ---
Author Author Admin, Isidra Organization [place] Address Unknown Phone Unavailable Allergies, Adverse Reactions, [...] atherosclerosis of unspecified type of vessel, [place] or graft Back pain, thoracic region, left [...] THROMBOPHLEBITIS, LEG, 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 Inactive Sirisha Chen TRACTOR MECHANIC DEEP VENOUS THROMBOPHLEBITIS, LEG, 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 Inactive Sirisha Chen TRACTOR MECHANIC Seborrheic keratosis ICD-702.19 Inactive Sirisha Chen TRACTOR MECHANIC Bronchitis-Acute ICD-466.0 Inactive Piotr Daley DO Leg pain, right ICD-729.5 Inactive Sirisha Chen TRACTOR MECHANIC Right leg pain ICD-729.5 Inactive Sirisha Chen TRACTOR MECHANIC Bronchitis-Acute ICD-466.0 Inactive Sirisha Cehn TRACTOR MECHANIC Knee pain, left ICD-719.46 Inactive Sirisha Chen TRACTOR MECHANIC Actinic keratoses ICD-702.0 Inactive Sirisha Chen TRACTOR MECHANIC Back pain, thoracic region, left ICD-724.1 Inactive Piotr Katie Edi LEON Thoracic back pain ICD-724.5 Inactive Sirisha Gustavo LOO Back pain lumbar ICD-724.2 Inactive Sirisha Chen EZE Insect bite ICD-919.4 Inactive Sirisha Chen LPN Pruritus ICD-698.9 Inactive Sirisha Chen EZE 04/09 Medication List Medication Instructions Start Date Stop Date Generic Name NDC Status Provider Patient Instruction CYCLOBENZAPRINE HCL 10 MG ORAL TABLET 1 tablet by mouth three times daily as needed for muscle spasm/pain CYCLOBENZAPRINE HCL 41980172124 Active Piotr Daley DO Active PREDNISONE 20 MG ORAL TABLET two tabs by mouth today, then one tab by mouth days two and three PREDNISONE 63047787227 Active Piotr Katie Edi LEON Active ZITHROMAX 250 MG ORAL TABLET Take two (2 ) tablets day one, then one (1) tablet a day for four (4) more days AZITHROMYCIN 71274218506 Active Piotr Daley Active PROAIR HFA 108 (90 BASE) MCG/ACT INHALATION AEROSOL SOLUTION 1-2 puffs four times a day as needed ALBUTEROL SULFATE 66679951124 No Longer Active Emelyn Norris Active DOXYCYCLINE HYCLATE 100 MG ORAL CAPSULE 1 cap by mouth BID x10 days DOXYCYCLINE HYCLATE 70464305470 No Longer Active Nella Harris APRN Active WARFARIN SODIUM 5 MG ORAL TABLET 1 tablet daily M-S, 1/2 tab on Heart WARFARIN SODIUM 98911351748 Active Piotr Wilson Edi LEON Active PREDNISONE 20 MG ORAL TABLET 2 tabs daily for 3 days, 1 tab daily for 3 days, 1/2 tab daily for 2 days PREDNISONE 88393841154 No Longer Active Matthew Rangel MD Active TRAMADOL HCL 50 MG ORAL TABLET 1 po tid with ES Tylenol TRAMADOL HCL 07225772641 No Longer Active Matthew Rangel MD Active GABAPENTIN 300 MG ORAL CAPSULE 1 po q hs for nerve pain GABAPENTIN 85608635533 No Longer Active Matthew Rangel MD Active PREDNISONE 20 MG ORAL TABLET 2 tablets today, then 1 tablet days 2 through 4 PREDNISONE 19175114185 No Longer Active Piotr Daley DO Active AZITHROMYCIN 250 MG ORAL TABLET 2 po qd x 1 day, then 1 po qd x 4 days 07/12 AZITHROMYCIN 28089717331 No Longer Active Piotr Daley DO Active IBUPROFEN 800 MG ORAL TABLET 1 tab every 8 hours as needed 07/12 IBUPROFEN 21174447430 No Longer Active Piotr Daley DO Active LOMOTIL 2.5-0.025 MG ORAL TABLET 1 to 2 four times a day as needed for diarrhea DIPHENOXYLATE-ATROPINE 99667394542 No Longer Active Piotr Daley DO Active WARFARIN SODIUM 4 MG ORAL TABLET 1 tab every evening WARFARIN SODIUM 84922292601 No Longer Active Piotr Daley DO Active PREDNISONE 20 MG ORAL TABLET 1 tablet twice daily for 2 days, then 1 tablet once daily for 2 days PREDNISONE 59316075852 No Longer Active Piotr Daley DO Active PROMETHAZINE HCL 25 MG ORAL TABLET 1 four times a day as needed for nausea/ vomiting PROMETHAZINE HCL 48062905425 No Longer Active Piotr Daley DO Active TUSSIONEX PENNKINETIC ER 10-8 MG/5ML ORAL SUSPENSION EXTENDED RELEASE 5ml po q12hr PRN Cough HYDROCOD POLST-CHLORPHEN POLST 05536639944 No Longer Active Piotr Daley DO Active AZITHROMYCIN 250 MG ORAL TABLET 2 po qd x 1 day, then 1 po qd x 4 days 10/13 AZITHROMYCIN 53149939926 No Longer Active Piotr Daley DO Active AZITHROMYCIN 250 MG ORAL TABLET 2 po qd x 1 day, then 1 po qd x 4 days 05/07 AZITHROMYCIN 00877109777 No Longer Active Piotr Daley DO Active LISINOPRIL-HYDROCHLOROTHIAZIDE 10-12.5 MG ORAL TABLET 1 tab by mouth daily LISINOPRIL-HYDROCHLOROTHIAZIDE 58198960443 Active Piotr Daley DO Active LISINOPRIL 10 MG ORAL TABLET 1/2-1 tab po every other day LISINOPRIL 50002082502 No Longer Active Piotr Daley DO Active VENTOLIN HFA 108 (90 Base) MCG/ACT INHALATION AEROSOL SOLUTION 2 puffs four times a day PRN cough ALBUTEROL SULFATE 91372338273 No Longer Active Piotr Daley DO Active NYSTATIN-TRIAMCINOLONE 912508-7.1 UNIT/GM-% EXTERNAL CREAM Apply to area BID NYSTATIN-TRIAMCINOLONE 23995408554 No Longer Active Alena Chavira TRACTOR MECHANIC Active PHISOHEX 3 % LIQD Use Directed HEXACHLOROPHENE 69737070142 No Longer Active Sandra [place] Active AZITHROMYCIN 250 MG ORAL TABLET 2 po qd x 1 day, then 1 po qd x 4 days 10/21 AZITHROMYCIN 57967925266 No Longer Active Katrina Rinaldi MD PhD Active AZITHROMYCIN 250 MG ORAL TABLET 2 po qd x 1 day, then 1 po qd x 4 days 10/16 AZITHROMYCIN 86389330599 No Longer Active Piotr Daley DO Active AZITHROMYCIN 500 MG INTRAVENOUS SOLUTION RECONSTITUTED 1 po q day AZITHROMYCIN 70759766377 No Longer Active Piotr Daley DO Active NYSTATIN-TRIAMCINOLONE 102211-8.1 UNIT/GM-% EXTERNAL CREAM apply bid NYSTATIN-TRIAMCINOLONE 63553167447 No Longer Active Piotr Daley DO Active IBUPROFEN 800 MG ORAL TABLET 1 po q 8 hours prn pain sparinly IBUPROFEN 03017236849 No Longer Active Piotr Daley DO Active VITAMIN D3 5000 UNIT ORAL CAPSULE 1 po daily CHOLECALCIFEROL 39541728175 Active Piotr Daley DO Active IBUPROFEN 800 MG ORAL TABLET 1 po q 8 hours prn pain sparinly IBUPROFEN 800 MG ORAL TABLET 988860 IBUPROFEN Inactive NYSTATIN-TRIAMCINOLONE 333739-5.1 UNIT/GM-% EXTERNAL CREAM apply bid NYSTATIN-TRIAMCINOLONE 371092-5.1 UNIT/GM-% EXTERNAL CREAM 5681416 NYSTATIN-TRIAMCINOLONE Inactive AZITHROMYCIN 500 MG INTRAVENOUS SOLUTION RECONSTITUTED 1 po q day AZITHROMYCIN 500 MG INTRAVENOUS SOLUTION RECONSTITUTED 87754008341 AZITHROMYCIN Inactive VENTOLIN HFA 108 (90 Base) MCG/ACT INHALATION AEROSOL SOLUTION 2 puffs four times a day PRN cough VENTOLIN HFA 108 (90 Base) MCG/ ACT INHALATION AEROSOL SOLUTION ALBUTEROL SULFATE Inactive LISINOPRIL 10 MG ORAL TABLET 1/2-1 tab po every other day LISINOPRIL 10 MG ORAL TABLET 853818 LISINOPRIL Inactive TUSSIONEX PENNKINETIC ER 10-8 MG/5ML ORAL SUSPENSION EXTENDED RELEASE 5ml po q12hr PRN Cough TUSSIONEX PENNKINETIC ER 10-8 MG/5ML ORAL SUSPENSION EXTENDED RELEASE HYDROCOD POLST-CHLORPHEN POLST Inactive PROMETHAZINE HCL 25 MG ORAL TABLET 1 four times a day as needed for nausea/ vomiting PROMETHAZINE HCL 25 MG ORAL TABLET 590780 PROMETHAZINE HCL Inactive PREDNISONE 20 MG ORAL TABLET 1 tablet twice daily for 2 days, then 1 tablet once daily for 2 days PREDNISONE 20 MG ORAL TABLET 833546 PREDNISONE Inactive WARFARIN SODIUM 4 MG ORAL TABLET 1 tab every evening WARFARIN SODIUM 4 MG ORAL TABLET 986185 WARFARIN SODIUM Inactive LOMOTIL 2.5-0.025 MG ORAL TABLET 1 to 2 four times a day as needed for diarrhea LOMOTIL 2.5-0.025 MG ORAL TABLET 0170715 DIPHENOXYLATE-ATROPINE Inactive IBUPROFEN 800 MG ORAL TABLET 1 tab every 8 hours as needed 07/12 IBUPROFEN 800 MG ORAL TABLET 175633 IBUPROFEN Inactive PREDNISONE 20 MG ORAL TABLET 2 tablets today, then 1 tablet days 2 through 4 PREDNISONE 20 MG ORAL TABLET 913865 PREDNISONE Inactive GABAPENTIN 300 MG ORAL CAPSULE 1 po q hs for nerve pain GABAPENTIN 300 MG ORAL CAPSULE 062150 GABAPENTIN Inactive TRAMADOL HCL 50 MG ORAL TABLET 1 po tid with ES Tylenol TRAMADOL HCL 50 MG ORAL TABLET 999806 TRAMADOL HCL Inactive PROAIR HFA 108 (90 BASE) MCG/ACT INHALATION AEROSOL SOLUTION 1-2 puffs four times a day as needed PROAIR HFA 108 (90 BASE) MCG/ACT INHALATION AEROSOL SOLUTION ALBUTEROL SULFATE Inactive AZITHROMYCIN 250 MG ORAL TABLET 2 po qd x 1 day, then 1 po qd x 4 days 10/16 AZITHROMYCIN 250 MG ORAL TABLET 538941 AZITHROMYCIN Inactive AZITHROMYCIN 250 MG ORAL TABLET 2 po qd x 1 day, then 1 po qd x 4 days 10/21 AZITHROMYCIN 250 MG ORAL TABLET 816381 AZITHROMYCIN Inactive NYSTATIN-TRIAMCINOLONE 777863-3.1 UNIT/GM-% EXTERNAL CREAM Apply to area BID NYSTATIN-TRIAMCINOLONE 689443-9.1 UNIT/GM-% EXTERNAL CREAM 5886535 NYSTATIN-TRIAMCINOLONE Inactive AZITHROMYCIN 250 MG ORAL TABLET 2 po qd x 1 day, then 1 po qd x 4 days 05/07 AZITHROMYCIN 250 MG ORAL TABLET 510218 AZITHROMYCIN Inactive AZITHROMYCIN 250 MG ORAL TABLET 2 po qd x 1 day, then 1 po qd x 4 days 10/13 AZITHROMYCIN 250 MG ORAL TABLET 713998 AZITHROMYCIN Inactive AZITHROMYCIN 250 MG ORAL TABLET 2 po qd x 1 day, then 1 po qd x 4 days 07/12 AZITHROMYCIN 250 MG ORAL TABLET 384994 AZITHROMYCIN Inactive PREDNISONE 20 MG ORAL TABLET 2 tabs daily for 3 days, 1 tab daily for 3 days, 1/2 tab daily for 2 days PREDNISONE 20 MG ORAL TABLET 291965 PREDNISONE Inactive DOXYCYCLINE HYCLATE 100 MG ORAL CAPSULE 1 cap by mouth BID x10 days DOXYCYCLINE HYCLATE 100 MG ORAL CAPSULE 6582223 DOXYCYCLINE HYCLATE Inactive Advance Directives Directive Description [...] Panel - Chemistry sodium, serum 141 mmol/L 149-967 3121/01/24 potassium, serum 4.3 mmol/L 3.5-5.2 chloride, serum [...] % 11.0-15.0 platelet count 172 THOUSAND/UL 10*3/mm3 465-827 1489/04/12 mean platelet volume 8.6 fL 7.5-12.5 Lab Report: Prothrombin Time - Coagulation prothrombin time (patient) 27.8 SECS s 11.1-13.4 international normalized ratio (INR) 4.2 1.0-3.5 Lab Report: Prothrombin Time Hemochron - Coagulation prothrombin time (patient) 33.0 SECS s 18.9-24.9 Encounters Code Encounter Date Provider Facility CPT-02883 Level 3 Est. Patient 15:56:17 AFRICAN HISTORY PROFESSOR Piotr Daley [facility] CPT-44232 Level 3 Est. Patient 10:34:54 AFRICAN HISTORY PROFESSOR Piotr Daley [facility] CPT-33202 Level 3 Est. Patient 17:10:19 [facility] Level 3 Est. Patient 10:48:17 AFRICAN HISTORY PROFESSOR Matthew Rangel MD [facility] CPT-27318 Level 4 Est. Patient 17:15:07 AFRICAN HISTORY PROFESSOR Piotr Daley [facility] CPT-23470 Level 3 Est. Patient 12:46:13 AFRICAN HISTORY PROFESSOR Piotr aDley [facility] CPT-34349 Level 3 Est. Patient 15:14:31 AFRICAN HISTORY PROFESSOR Piotr Daley [facility] CPT-44821 Level 3 Est. Patient 09:20:13 AFRICAN HISTORY PROFESSOR Piotr Daley [facility] CPT-84806 Level 3 Est. Patient 09:49:40 CDT Piotr Daley [facility] CPT-10203 Level 3 Est. Patient 16:28:11 CDT Piotr Daley [facility] CPT-14516 Level 3 Est. Patient 12:41:58 AFRICAN HISTORY PROFESSOR Piotr Daley [facility] CPT-65746 Level 3 Est. Patient 09:21:24 CDT Piotr Daley [facility] CPT-25528 Level 3 Est. Patient 09:21:11 CDT Piotr Daley [facility] CPT-43439 Level 3 Est. Patient 11:16:29 AFRICAN HISTORY PROFESSOR Piotr Daley [facility] CPT-79368 Level 3 Est. Patient 18:40:19 AFRICAN HISTORY PROFESSOR Piotr Daley [facility] CPT-50158 Level 3 Est. Patient 19:30:50 CDT Piotr Daley [facility] CPT-03977 Level 3 Est. Patient 22:06:44 CDT Katrina Rinaldi MD PhD [facility]-[id number] Level 3 Est. Patient 14:20:00 CDT Piotr Daley [facility] CPT-85822 Level 3 Est. Patient 14:15:22 AFRICAN HISTORY PROFESSOR Piotr Daley [facility] CPT-53181 Level 3 Est. Patient 20:19:57 AFRICAN HISTORY PROFESSOR Piotr Daley [facility] CPT-54555 Level 3 Est. Patient 16:44:32 CDT Piotr Daley [facility] CPT-74734 Level 3 Est. Patient 08:48:46 AFRICAN HISTORY PROFESSOR Piotr Daley [facility] CPT-37911 Level 3 Est. Patient 21:01:21 CDT Piotr Daley [facility] Procedures Code Procedure Name Date Entry Date Standard Description CPT-G0439 Subsequent Annual Wellness Exam 10:34:52 [facility] CPT-53684 BMP - LAB USE ONLY 17:19:11 AFRICAN HISTORY PROFESSOR CPT-34029 PT/INR - LAB USE ONLY 17:19:10 [facility] CPT-37256 Venipuncture Draw Fee 17:19:10 AFRICAN HISTORY PROFESSOR CPT-60542 PT/INR - LAB USE ONLY 08:12:25 AFRICAN HISTORY PROFESSOR CPT-82563 Venipuncture Draw Fee 08:12:24 AFRICAN HISTORY PROFESSOR CPT-01437 Venipuncture Draw Fee 11:31:07 AFRICAN HISTORY PROFESSOR CPT-43791 TPSA - LAB USE ONLY 11:31:07 AFRICAN HISTORY PROFESSOR CPT-84175 PT/INR - LAB USE ONLY 11:31:07 [facility] CPT-G0439 Subsequent Annual Wellness Exam 09:59:29 AFRICAN HISTORY PROFESSOR CPT-10842 Creatinine - LAB USE ONLY 14:37:55 AFRICAN HISTORY PROFESSOR CPT-94883 PT/INR - LAB USE ONLY 14:37:55 AFRICAN HISTORY PROFESSOR CPT-57023 Venipuncture Draw Fee 14:37:55 AFRICAN HISTORY PROFESSOR CPT-74955 LS spine comp w obliques - XRAY USE ONLY 12:59:25 AFRICAN HISTORY PROFESSOR CPT-77513 PT/INR - LAB USE ONLY 13:49:20 CDT CPT-85596 Venipuncture Draw Fee 13:49:19 CDT CPT-20568 PT/INR - LAB USE ONLY 15:48:49 CDT CPT-96552 Venipuncture Draw Fee 15:48:49 CDT CPT-03671 Venipuncture Draw Fee 11:31:59 CDT CPT-59115 PT/INR - LAB USE ONLY 11:31:59 CDT CPT-51112 Venipuncture Draw Fee 13:29:15 CDT CPT-53549 Thoracolumbar AP/Lat 15:19:19 AFRICAN HISTORY PROFESSOR CPT-G0438 Initial Annual Wellness Exam 12:18:54 AFRICAN HISTORY PROFESSOR CPT-11365 Knee 3V 09:57:38 CDT CPT-OV Office Visit 15:45:01 AFRICAN HISTORY PROFESSOR CPT-32465 Abd compl w upright 17:10:25 CDT
--- OUTSIDE RECORDS SUMMARY | 2018-07-18 08:50 | XMS REPORT | Clinical Summary ---
Author Author Admin, Isidra Organization [address] Address Unknown Phone Unavailable Allergies, Adverse Reactions, [...] lower extremity Coumadin therapy V58.61 Active Alena aRmey Long-term (current) use of anticoagulants Seborrheic keratosis [...] Coronary atherosclerosis of unspecified type of vessel, [place] or graft Back pain, thoracic region, left [...] times a day as needed ALBUTEROL SULFATE 34968944028 Active Matthew Rangel MD Active PREDNISONE 20 MG TAB 2 tabs daily for 3 days, 1 tab daily for 3 days, 1/2 tab daily for 2 days PREDNISONE 40233424050 No Longer Active Matthew Rangel MD Active TRAMADOL HCL 50 MG TABS 1 po tid with ES Tylenol TRAMADOL HCL 39409549883 No Longer Active Matthew Rangel MD Active GABAPENTIN 300 MG CAPS 1 po q hs for nerve pain GABAPENTIN 40260114551 No Longer Active Matthew Rangel MD Active WARFARIN SODIUM 5 MG TABS 1 tablet daily WARFARIN SODIUM 80142573091 Active Anahy Loja Active PREDNISONE 20 MG TAB 2 tablets today, then 1 tablet days 2 through 4 PREDNISONE 64523959459 No Longer Active Piotr Daley DO Active AZITHROMYCIN 250 MG TABS 2 po qd x 1 day, then 1 po qd x 4 days AZITHROMYCIN 10432469602 No Longer Active Piotr Daley DO Active IBUPROFEN 800 MG TABS 1 tab every 8 hours as needed IBUPROFEN 25860607149 No Longer Active Piotr Daley DO Active LOMOTIL 2.5-0.025 MG TAB 1 to 2 four times a day as needed for diarrhea 10/13 DIPHENOXYLATE-ATROPINE 42854068180 No Longer Active Piotr Daley DO Active WARFARIN SODIUM 4 MG TABS 1 tab every evening WARFARIN SODIUM 22896456138 No Longer Active Piotr Daley DO Active PREDNISONE 20 MG TAB 1 tablet twice daily for 2 days, then 1 tablet once daily for 2 days PREDNISONE 33538639899 No Longer Active Piotr Daley DO Active PROMETHAZINE HCL 25 MG TABS 1 four times a day as needed for nausea/vomiting PROMETHAZINE HCL 89814732733 No Longer Active Piotr Daley DO Active TUSSIONEX PENNKINETIC ER 10-8 MG/5ML LQCR 5ml po q12hr PRN Cough HYDROCOD POLST-CHLORPHEN POLST 34813490801 No Longer Active Piotr Daley DO Active AZITHROMYCIN 250 MG TABS 2 po qd x 1 day, then 1 po qd x 4 days AZITHROMYCIN 15131089760 No Longer Active Piotr Daley DO Active AZITHROMYCIN 250 MG TABS 2 po qd x 1 day, then 1 po qd x 4 days AZITHROMYCIN 79819622840 No Longer Active Piotr Daley DO Active LISINOPRIL-HYDROCHLOROTHIAZIDE 10-12.5 MG TABS 1 tab by mouth daily LISINOPRIL-HYDROCHLOROTHIAZIDE 78545282974 Active Catalina Freitas Active LISINOPRIL 10 MG TABS 1/2-1 tab po every other day LISINOPRIL 70399583024 No Longer Active Piotr Daley DO Active VENTOLIN HFA 108 (90 BASE) MCG/ACT AERS 2 puffs four times a day PRN cough ALBUTEROL SULFATE 19273986606 No Longer Active Piotr Daley DO Active NYSTATIN-TRIAMCINOLONE 256523-1.1 UNIT/GM-% CREA Apply to area BID NYSTATIN-TRIAMCINOLONE 86539962997 No Longer Active Alena Chavira SEISMOLOGY TEACHER Active PHISOHEX 3 % LIQD Use Directed HEXACHLOROPHENE 13377485486 No Longer Active Sandra [place] Active AZITHROMYCIN 250 MG TABS 2 po qd x 1 day, then 1 po qd x 4 days AZITHROMYCIN 66494053161 No Longer Active Katrina Rinaldi MD PhD Active AZITHROMYCIN 250 MG TABS 2 po qd x 1 day, then 1 po qd x 4 days AZITHROMYCIN 49462156774 No Longer Active Piotr Daley DO Active AZITHROMYCIN 500 MG SOLR 1 po q day AZITHROMYCIN 70732507841 No Longer Active Piotr Daley DO Active NYSTATIN-TRIAMCINOLONE 937327-5.1 UNIT/GM-% CREA apply bid 08/19 NYSTATIN-TRIAMCINOLONE 84651884990 No Longer Active Piotr Daley DO Active IBUPROFEN 800 MG TABS 1 po q 8 hours prn pain sparinly IBUPROFEN 50269220233 No Longer Active Piotr Daley DO Active VITAMIN D3 5000 UNIT CAPS 1 po daily CHOLECALCIFEROL 60737221719 Active Piotr Daley DO Active IBUPROFEN 800 MG TABS 1 po q 8 hours prn pain sparinly IBUPROFEN 800 MG TABS 424358 IBUPROFEN Inactive NYSTATIN-TRIAMCINOLONE 715924-3.1 UNIT/GM-% CREA apply bid 08/19 NYSTATIN-TRIAMCINOLONE 814583-1.1 UNIT/GM-% CREA 4409365 NYSTATIN- TRIAMCINOLONE Inactive AZITHROMYCIN 500 MG SOLR 1 po q day AZITHROMYCIN 500 MG SOLR 11567115214 AZITHROMYCIN Inactive VENTOLIN HFA 108 (90 BASE) MCG/ACT AERS 2 puffs four times a day PRN cough VENTOLIN HFA 108 (90 BASE) MCG/ACT AERS ALBUTEROL SULFATE Inactive LISINOPRIL 10 MG TABS 1/2-1 tab po every other day LISINOPRIL 10 MG TABS 146300 LISINOPRIL Inactive TUSSIONEX PENNKINETIC ER 10-8 MG/5ML LQCR 5ml po q12hr PRN Cough TUSSIONEX PENNKINETIC ER 10-8 MG/5ML LQCR HYDROCOD POLST- CHLOR[place]EN POLST Inactive PROMETHAZINE HCL 25 MG TABS 1 four times a day as needed for nausea/vomiting PROMETHAZINE HCL 25 MG TABS 329522 PROMETHAZINE HCL Inactive PREDNISONE 20 MG TAB 1 tablet twice daily for 2 days, then 1 tablet once daily for 2 days PREDNISONE 20 MG TAB 265365 PREDNISONE Inactive WARFARIN SODIUM 4 MG TABS 1 tab every evening WARFARIN SODIUM 4 MG TABS 915113 WARFARIN SODIUM Inactive LOMOTIL 2.5-0.025 MG TAB 1 to 2 four times a day as needed for diarrhea 10/13 LOMOTIL 2.5-0.025 MG TAB 6718798 DIPHENOXYLATE-ATROPINE Inactive IBUPROFEN 800 MG TABS 1 tab every 8 hours as needed IBUPROFEN 800 MG TABS 111155 IBUPROFEN Inactive PREDNISONE 20 MG TAB 2 tablets today, then 1 tablet days 2 through 4 PREDNISONE 20 MG TAB 801472 PREDNISONE Inactive GABAPENTIN 300 MG CAPS 1 po q hs for nerve pain GABAPENTIN 300 MG CAPS 345305 GABAPENTIN Inactive TRAMADOL HCL 50 MG TABS 1 po tid with ES Tylenol TRAMADOL HCL 50 MG TABS 008325 TRAMADOL HCL Inactive AZITHROMYCIN 250 MG TABS 2 po qd x 1 day, then 1 po qd x 4 days AZITHROMYCIN 250 MG TABS 6137365 AZITHROMYCIN Inactive AZITHROMYCIN 250 MG TABS 2 po qd x 1 day, then 1 po qd x 4 days AZITHROMYCIN 250 MG TABS 3965674 AZITHROMYCIN Inactive NYSTATIN-TRIAMCINOLONE 690601-6.1 UNIT/GM-% CREA Apply to area BID NYSTATIN-TRIAMCINOLONE 418476-9.1 UNIT/GM-% CREA 6643336 NYSTATIN-TRIAMCINOLONE Inactive AZITHROMYCIN 250 MG TABS 2 po qd x 1 day, then 1 po qd x 4 days AZITHROMYCIN 250 MG TABS 6811711 AZITHROMYCIN Inactive AZITHROMYCIN 250 MG TABS 2 po qd x 1 day, then 1 po qd x 4 days AZITHROMYCIN 250 MG TABS 0218068 AZITHROMYCIN Inactive AZITHROMYCIN 250 MG TABS 2 po qd x 1 day, then 1 po qd x 4 days AZITHROMYCIN 250 MG TABS 7226436 AZITHROMYCIN Inactive PREDNISONE 20 MG TAB 2 tabs daily for 3 days, 1 tab daily for 3 days, 1/2 tab daily for 2 days PREDNISONE 20 MG TAB 607804 PREDNISONE Inactive Advance Directives Directive Description Start [...] Panel - Chemistry sodium, serum 141 mmol/L 738-721 8462/01/24 potassium, serum 4.3 mmol/L 3.5-5.2 chloride, serum [...] % 11.0-15.0 platelet count 172 THOUSAND/UL 10*3/mm3 724-900 8793/04/12 mean platelet volume 8.6 fL 7.5-12.5 Lab Report: Comp. Metabolic Panel - Chemistry sodium, serum 141 mmol/L 839-331 0923/06/28 carbon dioxide, venous blood 31.0 mmol/L 21.0-32.0 [...] 1.0-3.5 Encounters Code Encounter Date Provider Facility CPT-03757 Level 3 Est. Patient 10:48:17 SITE MONITOR Matthew Rangel MD [facility] CPT-91968 Level 4 Est. Patient 17:15:07 SITE MONITOR Piotr Daley [facility] CPT-93846 Level 3 Est. Patient 12:46:13 SITE MONITOR Piotr Daley [facility] CPT-31958 Level 3 Est. Patient 15:14:31 SITE MONITOR Piotr Daley [facility] CPT-50382 Level 3 Est. Patient 09:20:13 SITE MONITOR Piotr Daley [facility] CPT-27869 Level 3 Est. Patient 09:49:40 CDT Piotr Wilson [facility] CPT-46746 Level 3 Est. Patient 16:28:11 CDT Piotr Daley [facility] CPT-22556 Level 3 Est. Patient 12:41:58 SITE MONITOR Piotr Daley [facility] CPT-06443 Level 3 Est. Patient 09:21:24 CDT Piotr Daley [facility] CPT-37315 Level 3 Est. Patient 09:21:11 CDT Piotr Daley [facility] CPT-03934 Level 3 Est. Patient 11:16:29 SITE MONITOR Piotr Daley [facility] CPT-43898 Level 3 Est. Patient 18:40:19 SITE MONITOR Piotr Daley [facility] CPT-62734 Level 3 Est. Patient 19:30:50 CDT Piotr Daley [facility] CPT-91608 Level 3 Est. Patient 22:06:44 CDT Katrina Rinaldi MD [facility] CPT-39773 Level 3 Est. Patient 14:20:00 CDT Piotr Daley [facility] CPT-56095 Level 3 Est. Patient 14:15:22 SITE MONITOR Piotr Daley [facility] CPT-17304 Level 3 Est. Patient 20:19:57 SITE MONITOR Piotr Daley [facility] CPT-66458 Level 3 Est. Patient 16:44:32 CDT Piotr Daley [facility] CPT-34936 Level 3 Est. Patient 08:48:46 SITE MONITOR Piotr Daley [facility] CPT-27640 Level 3 Est. Patient 21:01:21 CDT Piotr Daley [facility] Procedures Code Procedure Name Date Entry Date Standard Description CPT-43052 BMP - LAB USE ONLY 17:19:11 SITE MONITOR CPT-10927 PT/INR - LAB USE ONLY 17:19:10 SITE MONITOR CPT-92395 Venipuncture Draw Fee 17:19:10 SITE MONITOR CPT-54376 PT/INR - LAB USE ONLY 08:12:25 SITE MONITOR CPT-18588 Venipuncture Draw Fee 08:12:24 SITE MONITOR CPT-74710 Venipuncture Draw Fee 11:31:07 SITE MONITOR CPT-85094 TPSA - LAB USE ONLY 11:31:07 SITE MONITOR CPT-80710 PT/INR - LAB USE ONLY 11:31:07 SITE MONITOR CPT-G0439 Subsequent Annual Wellness Exam 09:59:29 SITE MONITOR CPT-19382 Creatinine - LAB USE ONLY 14:37:55 SITE MONITOR CPT-89208 PT/INR - LAB USE ONLY 14:37:55 SITE MONITOR CPT-52820 Venipuncture Draw Fee 14:37:55 SITE MONITOR CPT-99746 LS spine comp w obliques - XRAY USE ONLY 12:59:25 SITE MONITOR CPT-79924 PT/INR - LAB USE ONLY 13:49:20 CDT CPT-40473 Venipuncture Draw Fee 13:49:19 CDT CPT-48417 PT/INR - LAB USE ONLY 15:48:49 CDT CPT-79108 Venipuncture Draw Fee 15:48:49 CDT CPT-29721 Venipuncture Draw Fee 11:31:59 CDT CPT-94475 PT/INR - LAB USE ONLY 11:31:59 CDT CPT-17762 Venipuncture Draw Fee 13:29:15 CDT CPT-20215 Thoracolumbar AP/Lat 15:19:19 SITE MONITOR CPT-G0438 Initial Annual Wellness Exam 12:18:54 SITE MONITOR CPT-34210 Knee 3V 09:57:38 CDT CPT-OV Office Visit 15:45:01 SITE MONITOR CPT-93046 Abd compl w upright 17:10:25 CDT
--- OUTSIDE RECORDS SUMMARY | 2018-07-18 08:52 | XMS REPORT | Clinical Summary ---
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 Personal history of malignant neoplasm [...] abnormality Sacroiliitis, right 720.2 Active Emelyn Goode Rcahealbita Sacroiliitis, not elsewhere classified Pes anserinus bursitis, [...] LPN Seborrheic keratosis ICD-702.19 Inactive Sirisha Chen BAND CUTTER Bronchitis-Acute ICD-466.0 Inactive Piotr Daley DO Leg pain, right ICD-729.5 Inactive Sirisha Chen BAND CUTTER Right leg pain ICD-729.5 Inactive Sirisha Chen BAND CUTTER Bronchitis-Acute ICD-466.0 Inactive Sirisha Chen BAND CUTTER Knee pain, left ICD-719.46 Inactive Sirisha Chen BAND CUTTER Actinic keratoses ICD-702.0 Inactive Sirisha Chen BAND CUTTER Back pain, thoracic region, left ICD-724.1 Inactive Piotr Daley DO Thoracic back pain ICD-724.5 Inactive Sirisha Chen BAND CUTTER Back pain lumbar ICD-724.2 Inactive Sirisha Chen BAND CUTTER Insect bite ICD-919.4 Inactive Sirisha Chen BAND CUTTER Pruritus ICD-698.9 Inactive Sirisha Chen BAND CUTTER 04/09 Bronchitis-Acute ICD-466.0 Inactive Sirisha Chen BAND CUTTER Dyspnea ICD-786.09 Inactive Sirisha Chen BAND CUTTER 05/09 Pes anserinus bursitis, right ICD-726.61 Inactive Piotr Daley DO Medication List Medication Instructions Start Date Stop Date Generic Name NDC Status Provider Patient Instruction TRIAMCINOLONE ACETONIDE 0.1 % EXTERNAL CREAM apply bid sparingly to rash 2017 TRIAMCINOLONE ACETONIDE 86074669144 No Longer Active Piotr Daley DO Active NYSTATIN 625325 UNIT/GM EXTERNAL CREAM Apply to rash 2-3 times a day and may repeat as needed NYSTATIN 33073273822 No Longer Active Piotr Daley DO Active WARFARIN SODIUM 4 MG ORAL TABLET 1 tablet by mouth daily WARFARIN SODIUM 57541006171 Active Sirisha Chen LPN Active MELOXICAM 15 MG ORAL TABLET 1 po q day for pain with food MELOXICAM 87785840880 Active Piotr Daley DO Active PREDNISONE 10 MG ORAL TABLET 1 tablet by mouth daily PREDNISONE 33890392624 No Longer Active Emelyn Norris Active TESSALON PERLES 100 MG ORAL CAPSULE 1-2 tablet by mouth 3 times daily 04/16 BENZONATATE 27709603095 No Longer Active Emelyn Norris Active PREDNISONE 20 MG ORAL TABLET two tabs by mouth today, then one tab by mouth days two and three PREDNISONE 10215669886 No Longer Active Piotr Daley DO Active CYCLOBENZAPRINE HCL 10 MG ORAL TABLET 1 tablet by mouth three times daily as needed for muscle spasm/pain CYCLOBENZAPRINE HCL 29091806705 Active Sirisha Chen LPN Active ZITHROMAX 250 MG ORAL TABLET Take two (2 ) tablets day one, then one (1) tablet a day for four (4) more days AZITHROMYCIN 55848547862 No Longer Active Piotr Daley DO Active PROAIR HFA 108 (90 BASE) MCG/ACT INHALATION AEROSOL SOLUTION 1-2 puffs four times a day as needed ALBUTEROL SULFATE 58771951077 No Longer Active Emelyn Norris Active DOXYCYCLINE HYCLATE 100 MG ORAL CAPSULE 1 cap by mouth BID x10 days DOXYCYCLINE HYCLATE 32550661614 No Longer Active Nella Harris APRN Active PREDNISONE 20 MG ORAL TABLET 2 tabs daily for 3 days, 1 tab daily for 3 days, 1/2 tab daily for 2 days PREDNISONE 28774684456 No Longer Active Matthew Rangel MD Active TRAMADOL HCL 50 MG ORAL TABLET 1 po tid with ES Tylenol TRAMADOL HCL 56441704337 No Longer Active Matthew Rangel MD Active GABAPENTIN 300 MG ORAL CAPSULE 1 po q hs for nerve pain GABAPENTIN 18517817035 No Longer Active Matthew Rangel MD Active PREDNISONE 20 MG ORAL TABLET 2 tablets today, then 1 tablet days 2 through 4 PREDNISONE 99607250977 No Longer Active Piotr Daley DO Active AZITHROMYCIN 250 MG ORAL TABLET 2 po qd x 1 day, then 1 po qd x 4 days 07/12 AZITHROMYCIN 62499582150 No Longer Active Piotr Daley DO Active IBUPROFEN 800 MG ORAL TABLET 1 tab every 8 hours as needed 07/12 IBUPROFEN 99073082795 No Longer Active Piotr Daley DO Active LOMOTIL 2.5-0.025 MG ORAL TABLET 1 to 2 four times a day as needed for diarrhea DIPHENOXYLATE-ATROPINE 63129378615 No Longer Active Piotr Daley DO Active WARFARIN SODIUM 4 MG ORAL TABLET 1 tab every evening WARFARIN SODIUM 55527510099 No Longer Active Piotr Daley DO Active PREDNISONE 20 MG ORAL TABLET 1 tablet twice daily for 2 days, then 1 tablet once daily for 2 days PREDNISONE 81375845421 No Longer Active Piotr Daley DO Active PROMETHAZINE HCL 25 MG ORAL TABLET 1 four times a day as needed for nausea/ vomiting PROMETHAZINE HCL 61372278506 No Longer Active Piotr Daley DO Active TUSSIONEX PENNKINETIC ER 10-8 MG/5ML ORAL SUSPENSION EXTENDED RELEASE 5ml po q12hr PRN Cough HYDROCOD POLST-CHLORPHEN POLST 46955440257 No Longer Active Piotr Daley DO Active AZITHROMYCIN 250 MG ORAL TABLET 2 po qd x 1 day, then 1 po qd x 4 days 10/13 AZITHROMYCIN 45154738133 No Longer Active Piotr Daley DO Active AZITHROMYCIN 250 MG ORAL TABLET 2 po qd x 1 day, then 1 po qd x 4 days 05/07 AZITHROMYCIN 52132134196 No Longer Active Piotr Daley DO Active LISINOPRIL-HYDROCHLOROTHIAZIDE 10-12.5 MG ORAL TABLET 1 tab by mouth daily LISINOPRIL-HYDROCHLOROTHIAZIDE 95972391795 Active Piotr Daley DO Active LISINOPRIL 10 MG ORAL TABLET 1/2-1 tab po every other day LISINOPRIL 75894407243 No Longer Active Piotr Daley DO Active VENTOLIN HFA 108 (90 Base) MCG/ACT INHALATION AEROSOL SOLUTION 2 puffs four times a day PRN cough ALBUTEROL SULFATE 79370060177 No Longer Active Piotr Daley DO Active NYSTATIN-TRIAMCINOLONE 155863-6.1 UNIT/GM-% EXTERNAL CREAM Apply to area BID NYSTATIN-TRIAMCINOLONE 34991590663 No Longer Active Alena Chavira BAND CUTTER Active PHISOHEX 3 % LIQD Use Directed HEXACHLOROPHENE 12679170751 No Longer Active Sandra [place] Active AZITHROMYCIN 250 MG ORAL TABLET 2 po qd x 1 day, then 1 po qd x 4 days 10/21 AZITHROMYCIN 74553575911 No Longer Active Katrina Rinaldi MD PhD Active AZITHROMYCIN 250 MG ORAL TABLET 2 po qd x 1 day, then 1 po qd x 4 days 10/16 AZITHROMYCIN 19683547979 No Longer Active Piotr Daley DO Active AZITHROMYCIN 500 MG INTRAVENOUS SOLUTION RECONSTITUTED 1 po q day AZITHROMYCIN 31020987475 No Longer Active Piotr Daley DO Active NYSTATIN-TRIAMCINOLONE 540570-8.1 UNIT/GM-% EXTERNAL CREAM apply bid NYSTATIN-TRIAMCINOLONE 66130228577 No Longer Active Piotr Daley DO Active IBUPROFEN 800 MG ORAL TABLET 1 po q 8 hours prn pain sparinly IBUPROFEN 20072240808 No Longer Active Piotr Daley DO Active VITAMIN D3 5000 UNIT ORAL CAPSULE 1 po daily CHOLECALCIFEROL 03102080922 Active Piotr Daley DO Active IBUPROFEN 800 MG ORAL TABLET 1 po q 8 hours prn pain sparinly IBUPROFEN 800 MG ORAL TABLET 056086 IBUPROFEN Inactive NYSTATIN-TRIAMCINOLONE 275229-6.1 UNIT/GM-% EXTERNAL CREAM apply bid NYSTATIN-TRIAMCINOLONE 718365-4.1 UNIT/GM-% EXTERNAL CREAM 7543768 NYSTATIN-TRIAMCINOLONE Inactive AZITHROMYCIN 500 MG INTRAVENOUS SOLUTION RECONSTITUTED 1 po q day AZITHROMYCIN 500 MG INTRAVENOUS SOLUTION RECONSTITUTED 54205305659 AZITHROMYCIN Inactive VENTOLIN HFA 108 (90 Base) MCG/ACT INHALATION AEROSOL SOLUTION 2 puffs four times a day PRN cough VENTOLIN HFA 108 (90 Base) MCG/ ACT INHALATION AEROSOL SOLUTION ALBUTEROL SULFATE Inactive LISINOPRIL 10 MG ORAL TABLET 1/2-1 tab po every other day LISINOPRIL 10 MG ORAL TABLET 472028 LISINOPRIL Inactive TUSSIONEX PENNKINETIC ER 10-8 MG/5ML ORAL SUSPENSION EXTENDED RELEASE 5ml po q12hr PRN Cough TUSSIONEX PENNKINETIC ER 10-8 MG/5ML ORAL SUSPENSION EXTENDED RELEASE HYDROCOD POLST-CHLORPHEN POLST Inactive PROMETHAZINE HCL 25 MG ORAL TABLET 1 four times a day as needed for nausea/ vomiting PROMETHAZINE HCL 25 MG ORAL TABLET 615410 PROMETHAZINE HCL Inactive PREDNISONE 20 MG ORAL TABLET 1 tablet twice daily for 2 days, then 1 tablet once daily for 2 days PREDNISONE 20 MG ORAL TABLET 462099 PREDNISONE Inactive WARFARIN SODIUM 4 MG ORAL TABLET 1 tab every evening WARFARIN SODIUM 4 MG ORAL TABLET 593000 WARFARIN SODIUM Inactive LOMOTIL 2.5-0.025 MG ORAL TABLET 1 to 2 four times a day as needed for diarrhea LOMOTIL 2.5-0.025 MG ORAL TABLET 6577609 DIPHENOXYLATE-ATROPINE Inactive IBUPROFEN 800 MG ORAL TABLET 1 tab every 8 hours as needed 07/12 IBUPROFEN 800 MG ORAL TABLET 414290 IBUPROFEN Inactive PREDNISONE 20 MG ORAL TABLET 2 tablets today, then 1 tablet days 2 through 4 PREDNISONE 20 MG ORAL TABLET 839094 PREDNISONE Inactive GABAPENTIN 300 MG ORAL CAPSULE 1 po q hs for nerve pain GABAPENTIN 300 MG ORAL CAPSULE 622868 GABAPENTIN Inactive TRAMADOL HCL 50 MG ORAL TABLET 1 po tid with ES Tylenol TRAMADOL HCL 50 MG ORAL TABLET 691377 TRAMADOL HCL Inactive PROAIR HFA 108 (90 BASE) MCG/ACT INHALATION AEROSOL SOLUTION 1-2 puffs four times a day as needed PROAIR HFA 108 (90 BASE) MCG/ACT INHALATION AEROSOL SOLUTION ALBUTEROL SULFATE Inactive PREDNISONE 20 MG ORAL TABLET two tabs by mouth today, then one tab by mouth days two and three PREDNISONE 20 MG ORAL TABLET 596216 PREDNISONE Inactive TESSALON PERLES 100 MG ORAL CAPSULE 1-2 tablet by mouth 3 times daily 04/16 TESSALON PERLES 100 MG ORAL CAPSULE 260594 BENZONATATE Inactive PREDNISONE 10 MG ORAL TABLET 1 tablet by mouth daily PREDNISONE 10 MG ORAL TABLET 125218 PREDNISONE Inactive NYSTATIN 096377 UNIT/GM EXTERNAL CREAM Apply to rash 2-3 times a day and may repeat as needed NYSTATIN 587421 UNIT/GM EXTERNAL CREAM 467794 NYSTATIN Inactive TRIAMCINOLONE ACETONIDE 0.1 % EXTERNAL CREAM apply bid sparingly to rash 2017 TRIAMCINOLONE ACETONIDE 0.1 % EXTERNAL CREAM 0562505 TRIAMCINOLONE ACETONIDE Inactive AZITHROMYCIN 250 MG ORAL TABLET 2 po qd x 1 day, then 1 po qd x 4 days 10/16 AZITHROMYCIN 250 MG ORAL TABLET 371139 AZITHROMYCIN Inactive AZITHROMYCIN 250 MG ORAL TABLET 2 po qd x 1 day, then 1 po qd x 4 days 10/21 AZITHROMYCIN 250 MG ORAL TABLET 693308 AZITHROMYCIN Inactive NYSTATIN-TRIAMCINOLONE 064721-0.1 UNIT/GM-% EXTERNAL CREAM Apply to area BID NYSTATIN-TRIAMCINOLONE 300655-1.1 UNIT/GM-% EXTERNAL CREAM 5367592 NYSTATIN-TRIAMCINOLONE Inactive AZITHROMYCIN 250 MG ORAL TABLET 2 po qd x 1 day, then 1 po qd x 4 days 05/07 AZITHROMYCIN 250 MG ORAL TABLET 340104 AZITHROMYCIN Inactive AZITHROMYCIN 250 MG ORAL TABLET 2 po qd x 1 day, then 1 po qd x 4 days 10/13 AZITHROMYCIN 250 MG ORAL TABLET 078756 AZITHROMYCIN Inactive AZITHROMYCIN 250 MG ORAL TABLET 2 po qd x 1 day, then 1 po qd x 4 days 07/12 AZITHROMYCIN 250 MG ORAL TABLET 283350 AZITHROMYCIN Inactive PREDNISONE 20 MG ORAL TABLET 2 tabs daily for 3 days, 1 tab daily for 3 days, 1/2 tab daily for 2 days PREDNISONE 20 MG ORAL TABLET 903606 PREDNISONE Inactive DOXYCYCLINE HYCLATE 100 MG ORAL CAPSULE 1 cap by mouth BID x10 days DOXYCYCLINE HYCLATE 100 MG ORAL CAPSULE 3594667 DOXYCYCLINE HYCLATE Inactive ZITHROMAX 250 MG ORAL TABLET Take two (2 ) tablets day one, then one (1) tablet a day for four (4) more days ZITHROMAX 250 MG ORAL TABLET 112172 AZITHROMYCIN Inactive Advance Directives Directive Description Start [...] Ag - Chemistry sodium, serum 141 mmol/L 561-831 0944/12/17 carbon dioxide, venous blood 30.9 mmol/L 21.0-32.0 [...] 50-136 Encounters Code Encounter Date Provider Facility CPT-99047 [id number] Vst-Est Level IV 08:51:04 WIRER HELPER Piotr Daley DO [facility] CPT-71202 [id number] Vst-Est Level III 14:29:05 CDT Piotr W [facility] CPT-30211 Level 3 Est. Patient 15:59:25 WIRER HELPER Piotr Daley [facility] CPT-24753 Level 3 Est. Patient 12:33:59 WIRER HELPER Piotr Daley [facility] CPT-96313 Level 3 Est. Patient 15:56:17 WIRER HELPER Piotr Daley [facility] CPT-26286 Level 3 Est. Patient 10:34:54 WIRER HELPER Piotr Daley [facility] CPT-59761 Level 3 Est. Patient 17:10:19 CDT Nella Harris APRN [facility] CPT-44482 Level 3 Est. Patient 10:48:17 WIRER HELPER Matthew Rangel MD [facility] CPT-57830 Level 4 Est. Patient 17:15:07 WIRER HELPER Piotr Daley [facility] CPT-73073 Level 3 Est. Patient 12:46:13 WIRER HELPER Piotr Daley [facility] CPT-28097 Level 3 Est. Patient 15:14:31 WIRER HELPER Piotr Daley [facility] CPT-48693 Level 3 Est. Patient 09:20:13 WIRER HELPER Piotr Daley [facility] CPT-33446 Level 3 Est. Patient 09:49:40 CDT Piotr Daley [facility] CPT-03943 Level 3 Est. Patient 16:28:11 CDT Piotr Katie Daley [facility] CPT-65421 Level 3 Est. Patient 12:41:58 WIRER HELPER Piotr Daley [facility] CPT-55500 Level 3 Est. Patient 09:21:24 CDT Piotr Wilson [facility] CPT-48246 Level 3 Est. Patient 09:21:11 CDT Piotr Wilson [facility] CPT-71590 Level 3 Est. Patient 11:16:29 WIRER HELPER Piotr Wilson [facility] CPT-39839 Level 3 Est. Patient 18:40:19 WIRER HELPER Piotr Daley [facility] CPT-10759 Level 3 Est. Patient 19:30:50 CDT Piotr Daley [facility] CPT-24429 Level 3 Est. Patient 22:06:44 CDT Katrina Rinaldi MD [facility] CPT-77704 Level 3 Est. Patient 14:20:00 CDT Piotr Daley [facility] CPT-45269 Level 3 Est. Patient 14:15:22 WIRER HELPER Piotr Daley [facility] CPT-47634 Level 3 Est. Patient 20:19:57 WIRER HELPER Piotr Daley [facility] CPT-40528 Level 3 Est. Patient 16:44:32 CDT Piotr Daley [facility] CPT-30455 Level 3 Est. Patient 08:48:46 WIRER HELPER Piotr Daley [facility] CPT-25230 Level 3 Est. Patient 21:01:21 CDT Piotr Wilson [facility] Procedures Code Procedure Name Date Entry Date Standard Description CPT-Cryo Cryotherapy 08:51:04 WIRER HELPER CPT-G0439 Subsequent Annual Wellness Exam 08:51:04 WIRER HELPER CPT-73552 Sacroiliac jt < 3V - XRAY USE ONLY 16:45:19 WIRER HELPER 05/09 CPT-81542 LS spine comp w obliques - XRAY USE ONLY 14:52:26 WIRER HELPER CPT-32363 Chest, 2 views 12:55:58 WIRER HELPER CPT-G0439 Subsequent Annual Wellness Exam 10:34:52 WIRER HELPER CPT-29638 BMP - LAB USE ONLY 17:19:11 WIRER HELPER CPT-02462 PT/INR - LAB USE ONLY 17:19:10 WIRER HELPER CPT-00992 Venipuncture Draw Fee 17:19:10 WIRER HELPER CPT-58033 PT/INR - LAB USE ONLY 08:12:25 WIRER HELPER CPT-89931 Venipuncture Draw Fee 08:12:24 WIRER HELPER CPT-69376 Venipuncture Draw Fee 11:31:07 WIRER HELPER CPT-50368 TPSA - LAB USE ONLY 11:31:07 WIRER HELPER CPT-26921 PT/INR - LAB USE ONLY 11:31:07 WIRER HELPER CPT-G04[address] [facility] Annual Wellness Exam 09:59:29 WIRER HELPER CPT-30802 Creatinine - LAB USE ONLY 14:37:55 WIRER HELPER CPT-50137 PT/INR - LAB USE ONLY 14:37:55 WIRER HELPER CPT-11480 Venipuncture Draw Fee 14:37:55 WIRER HELPER CPT-52909 LS spine comp w obliques - XRAY USE ONLY 12:59:25 WIRER HELPER CPT-50245 PT/INR - LAB USE ONLY 13:49:20 CDT CPT-10609 Venipuncture Draw Fee 13:49:19 CDT CPT-61043 PT/INR - LAB USE ONLY 15:48:49 CDT CPT-33784 Venipuncture Draw Fee 15:48:49 CDT CPT-40030 Venipuncture Draw Fee 11:31:59 CDT CPT-63715 PT/INR - LAB USE ONLY 11:31:59 CDT CPT-03574 Venipuncture Draw Fee 13:29:15 CDT CPT-00579 Thoracolumbar AP/Lat 15:19:19 WIRER HELPER CPT-G0438 Initial Annual Wellness Exam 12:18:54 WIRER HELPER CPT-99599 Knee 3V 09:57:38 CDT CPT-OV Office Visit 15:45:01 WIRER HELPER CPT-17836 Abd compl w upright 17:10:25 CDT
--- OUTSIDE RECORDS SUMMARY | 2018-07-18 08:53 | XMS REPORT | Clinical Summary ---
Author Author Admin, Isidra Organization [facility] Address Unknown Phone Unavailable Allergies, Adverse [...] in limb Bronchitis-Acute 466.0 Resolved Piotr W Dei DO Acute bronchitis Knee pain, left 719.46 [...] Coronary atherosclerosis of unspecified type of vessel, belkofski or graft Back pain, thoracic region, left [...] THROMBOPHLEBITIS, LEG, 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 Inactive Sirisha Chen BONDING MACHINE SETTER Seborrheic keratosis ICD-702.19 Inactive Sirisha Chen BONDING MACHINE SETTER Bronchitis-Acute ICD-466.0 Inactive Piotr Daley DO Leg pain, right ICD-729.5 Inactive Sirisha Chen BONDING MACHINE SETTER Right leg pain ICD-729.5 Inactive Sirisha Chen BONDING MACHINE SETTER Bronchitis-Acute ICD-466.0 Inactive Sirisha Chen BONDING MACHINE SETTER Knee pain, left ICD-719.46 Inactive Sirisha Chen BONDING MACHINE SETTER Actinic keratoses ICD-702.0 Inactive Sirisha Chen BONDING MACHINE SETTER Back pain, thoracic region, left ICD-724.1 Inactive Piotr Daley DO Thoracic back pain ICD-724.5 Inactive Sirisha Chen BONDING MACHINE SETTER Back pain lumbar ICD-724.2 Inactive Sirisha Chen BONDING MACHINE SETTER Insect bite ICD-919.4 Inactive Sirisha Chen BONDING MACHINE SETTER Pruritus ICD-698.9 Inactive Sirisha Chen BONDING MACHINE SETTER 04/09 Bronchitis-Acute ICD-466.0 Inactive Sirisha Chen BONDING MACHINE SETTER Dyspnea ICD-786.09 Inactive Sirisha Chen BONDING MACHINE SETTER 05/09 Pes anserinus bursitis, right ICD-726.61 Inactive Piotr Daley DO Medication List Medication Instructions Start Date Stop Date Generic Name NDC Status Provider Patient Instruction TRIAMCINOLONE ACETONIDE 0.1 % EXTERNAL CREAM apply bid sparingly to rash 2017 TRIAMCINOLONE ACETONIDE 28584927229 No Longer Active Piotr Daley DO Active NYSTATIN 285449 UNIT/GM EXTERNAL CREAM Apply to rash 2-3 times a day and may repeat as needed NYSTATIN 02157054163 No Longer Active Piotr Daley DO Active WARFARIN SODIUM 4 MG ORAL TABLET 1 tablet by mouth daily WARFARIN SODIUM 60798355815 Active Sirisha Chen LPN Active MELOXICAM 15 MG ORAL TABLET 1 po q day for pain with food MELOXICAM 70734951863 Active Piotr Daley DO Active PREDNISONE 10 MG ORAL TABLET 1 tablet by mouth daily PREDNISONE 31898638978 No Longer Active Emelyn Norris Active TESSALON PERLES 100 MG ORAL CAPSULE 1-2 tablet by mouth 3 times daily 04/16 BENZONATATE 98964656923 No Longer Active Emelyn oNrris Active PREDNISONE 20 MG ORAL TABLET two tabs by mouth today, then one tab by mouth days two and three PREDNISONE 91806056549 No Longer Active Piotr Daley DO Active CYCLOBENZAPRINE HCL 10 MG ORAL TABLET 1 tablet by mouth three times daily as needed for muscle spasm/pain CYCLOBENZAPRINE HCL 13807999996 Active Sirisha Chen LPN Active ZITHROMAX 250 MG ORAL TABLET Take two (2 ) tablets day one, then one (1) tablet a day for four (4) more days AZITHROMYCIN 14709780177 No Longer Active Piotr Daley DO Active PROAIR HFA 108 (90 BASE) MCG/ACT INHALATION AEROSOL SOLUTION 1-2 puffs four times a day as needed ALBUTEROL SULFATE 52463108625 No Longer Active Emelyn Norris Active DOXYCYCLINE HYCLATE 100 MG ORAL CAPSULE 1 cap by mouth BID x10 days DOXYCYCLINE HYCLATE 47104920531 No Longer Active Nella Harris APRN Active PREDNISONE 20 MG ORAL TABLET 2 tabs daily for 3 days, 1 tab daily for 3 days, 1/2 tab daily for 2 days PREDNISONE 71920603258 No Longer Active Matthew Rangel MD Active TRAMADOL HCL 50 MG ORAL TABLET 1 po tid with ES Tylenol TRAMADOL HCL 37381263745 No Longer Active Matthew Rangel MD Active GABAPENTIN 300 MG ORAL CAPSULE 1 po q hs for nerve pain GABAPENTIN 35736628467 No Longer Active Matthew Rangel MD Active PREDNISONE 20 MG ORAL TABLET 2 tablets today, then 1 tablet days 2 through 4 PREDNISONE 52984948354 No Longer Active Piotr Daley DO Active AZITHROMYCIN 250 MG ORAL TABLET 2 po qd x 1 day, then 1 po qd x 4 days 07/12 AZITHROMYCIN 36327425555 No Longer Active Piotr Daley DO Active IBUPROFEN 800 MG ORAL TABLET 1 tab every 8 hours as needed 07/12 IBUPROFEN 55219353967 No Longer Active Piotr Daley DO Active LOMOTIL 2.5-0.025 MG ORAL TABLET 1 to 2 four times a day as needed for diarrhea DIPHENOXYLATE-ATROPINE 39283787485 No Longer Active Piotr Daley DO Active WARFARIN SODIUM 4 MG ORAL TABLET 1 tab every evening WARFARIN SODIUM 29658577421 No Longer Active Piotr Daley DO Active PREDNISONE 20 MG ORAL TABLET 1 tablet twice daily for 2 days, then 1 tablet once daily for 2 days PREDNISONE 60370054677 No Longer Active Piotr Daley DO Active PROMETHAZINE HCL 25 MG ORAL TABLET 1 four times a day as needed for nausea/ vomiting PROMETHAZINE HCL 78225220474 No Longer Active Piotr Daley DO Active TUSSIONEX PENNKINETIC ER 10-8 MG/5ML ORAL SUSPENSION EXTENDED RELEASE 5ml po q12hr PRN Cough HYDROCOD POLST-CHLORPHEN POLST 62502270947 No Longer Active Piotr Daley DO Active AZITHROMYCIN 250 MG ORAL TABLET 2 po qd x 1 day, then 1 po qd x 4 days 10/13 AZITHROMYCIN 80039451811 No Longer Active Piotr Daley DO Active AZITHROMYCIN 250 MG ORAL TABLET 2 po qd x 1 day, then 1 po qd x 4 days 05/07 AZITHROMYCIN 95662073492 No Longer Active Piotr Daley DO Active LISINOPRIL-HYDROCHLOROTHIAZIDE 10-12.5 MG ORAL TABLET 1 tab by mouth daily LISINOPRIL-HYDROCHLOROTHIAZIDE 24430409381 Active Piotr Daley DO Active LISINOPRIL 10 MG ORAL TABLET 1/2-1 tab po every other day LISINOPRIL 01268088709 No Longer Active Piotr Daley DO Active VENTOLIN HFA 108 (90 Base) MCG/ACT INHALATION AEROSOL SOLUTION 2 puffs four times a day PRN cough ALBUTEROL SULFATE 11489457696 No Longer Active Piotr Daley DO Active NYSTATIN-TRIAMCINOLONE 087029-5.1 UNIT/GM-% EXTERNAL CREAM Apply to area BID NYSTATIN-TRIAMCINOLONE 88062821305 No Longer Active Alean Chavira BONDING MACHINE SETTER Active PHISOHEX 3 % LIQD Use Directed HEXACHLOROPHENE 33036576022 No Longer Active Sandra Scappoose Active AZITHROMYCIN 250 MG ORAL TABLET 2 po qd x 1 day, then 1 po qd x 4 days 10/21 AZITHROMYCIN 06681139656 No Longer Active Katrina Rinaldi MD PhD Active AZITHROMYCIN 250 MG ORAL TABLET 2 po qd x 1 day, then 1 po qd x 4 days 10/16 AZITHROMYCIN 58757484330 No Longer Active Piotr Daley DO Active AZITHROMYCIN 500 MG INTRAVENOUS SOLUTION RECONSTITUTED 1 po q day AZITHROMYCIN 59308158185 No Longer Active Piotr Daley DO Active NYSTATIN-TRIAMCINOLONE 329780-6.1 UNIT/GM-% EXTERNAL CREAM apply bid NYSTATIN-TRIAMCINOLONE 47102214719 No Longer Active Piotr Daley DO Active IBUPROFEN 800 MG ORAL TABLET 1 po q 8 hours prn pain sparinly IBUPROFEN 69450022366 No Longer Active Piotr Daley DO Active VITAMIN D3 5000 UNIT ORAL CAPSULE 1 po daily CHOLECALCIFEROL 86682715103 Active Piotr Daley DO Active IBUPROFEN 800 MG ORAL TABLET 1 po q 8 hours prn pain sparinly IBUPROFEN 800 MG ORAL TABLET 545504 IBUPROFEN Inactive NYSTATIN-TRIAMCINOLONE 171882-3.1 UNIT/GM-% EXTERNAL CREAM apply bid NYSTATIN-TRIAMCINOLONE 282086-7.1 UNIT/GM-% EXTERNAL CREAM 5195097 NYSTATIN-TRIAMCINOLONE Inactive AZITHROMYCIN 500 MG INTRAVENOUS SOLUTION RECONSTITUTED 1 po q day AZITHROMYCIN 500 MG INTRAVENOUS SOLUTION RECONSTITUTED 19702296164 AZITHROMYCIN Inactive VENTOLIN HFA 108 (90 Base) MCG/ACT INHALATION AEROSOL SOLUTION 2 puffs four times a day PRN cough VENTOLIN HFA 108 (90 Base) MCG/ ACT INHALATION AEROSOL SOLUTION ALBUTEROL SULFATE Inactive LISINOPRIL 10 MG ORAL TABLET 1/2-1 tab po every other day LISINOPRIL 10 MG ORAL TABLET 317433 LISINOPRIL Inactive TUSSIONEX PENNKINETIC ER 10-8 MG/5ML ORAL SUSPENSION EXTENDED RELEASE 5ml po q12hr PRN Cough TUSSIONEX PENNKINETIC ER 10-8 MG/5ML ORAL SUSPENSION EXTENDED RELEASE HYDROCOD POLST-CHLORPHEN POLST Inactive PROMETHAZINE HCL 25 MG ORAL TABLET 1 four times a day as needed for nausea/ vomiting PROMETHAZINE HCL 25 MG ORAL TABLET 898008 PROMETHAZINE HCL Inactive PREDNISONE 20 MG ORAL TABLET 1 tablet twice daily for 2 days, then 1 tablet once daily for 2 days PREDNISONE 20 MG ORAL TABLET 841871 PREDNISONE Inactive WARFARIN SODIUM 4 MG ORAL TABLET 1 tab every evening WARFARIN SODIUM 4 MG ORAL TABLET 622009 WARFARIN SODIUM Inactive LOMOTIL 2.5-0.025 MG ORAL TABLET 1 to 2 four times a day as needed for diarrhea LOMOTIL 2.5-0.025 MG ORAL TABLET 7454162 DIPHENOXYLATE-ATROPINE Inactive IBUPROFEN 800 MG ORAL TABLET 1 tab every 8 hours as needed 07/12 IBUPROFEN 800 MG ORAL TABLET 008446 IBUPROFEN Inactive PREDNISONE 20 MG ORAL TABLET 2 tablets today, then 1 tablet days 2 through 4 PREDNISONE 20 MG ORAL TABLET 651491 PREDNISONE Inactive GABAPENTIN 300 MG ORAL CAPSULE 1 po q hs for nerve pain GABAPENTIN 300 MG ORAL CAPSULE 330922 GABAPENTIN Inactive TRAMADOL HCL 50 MG ORAL TABLET 1 po tid with ES Tylenol TRAMADOL HCL 50 MG ORAL TABLET 480466 TRAMADOL HCL Inactive PROAIR HFA 108 (90 BASE) MCG/ACT INHALATION AEROSOL SOLUTION 1-2 puffs four times a day as needed PROAIR HFA 108 (90 BASE) MCG/ACT INHALATION AEROSOL SOLUTION ALBUTEROL SULFATE Inactive PREDNISONE 20 MG ORAL TABLET two tabs by mouth today, then one tab by mouth days two and three PREDNISONE 20 MG ORAL TABLET 331854 PREDNISONE Inactive TESSALON PERLES 100 MG ORAL CAPSULE 1-2 tablet by mouth 3 times daily 04/16 TESSALON PERLES 100 MG ORAL CAPSULE 651355 BENZONATATE Inactive PREDNISONE 10 MG ORAL TABLET 1 tablet by mouth daily PREDNISONE 10 MG ORAL TABLET 258622 PREDNISONE Inactive NYSTATIN 428324 UNIT/GM EXTERNAL CREAM Apply to rash 2-3 times a day and may repeat as needed NYSTATIN 819945 UNIT/GM EXTERNAL CREAM 361365 NYSTATIN Inactive TRIAMCINOLONE ACETONIDE 0.1 % EXTERNAL CREAM apply bid sparingly to rash 2017 TRIAMCINOLONE ACETONIDE 0.1 % EXTERNAL CREAM 7219286 TRIAMCINOLONE ACETONIDE Inactive AZITHROMYCIN 250 MG ORAL TABLET 2 po qd x 1 day, then 1 po qd x 4 days 10/16 AZITHROMYCIN 250 MG ORAL TABLET 816999 AZITHROMYCIN Inactive AZITHROMYCIN 250 MG ORAL TABLET 2 po qd x 1 day, then 1 po qd x 4 days 10/21 AZITHROMYCIN 250 MG ORAL TABLET 742002 AZITHROMYCIN Inactive NYSTATIN-TRIAMCINOLONE 462532-5.1 UNIT/GM-% EXTERNAL CREAM Apply to area BID NYSTATIN-TRIAMCINOLONE 593358-9.1 UNIT/GM-% EXTERNAL CREAM 0816490 NYSTATIN-TRIAMCINOLONE Inactive AZITHROMYCIN 250 MG ORAL TABLET 2 po qd x 1 day, then 1 po qd x 4 days 05/07 AZITHROMYCIN 250 MG ORAL TABLET 670576 AZITHROMYCIN Inactive AZITHROMYCIN 250 MG ORAL TABLET 2 po qd x 1 day, then 1 po qd x 4 days 10/13 AZITHROMYCIN 250 MG ORAL TABLET 359248 AZITHROMYCIN Inactive AZITHROMYCIN 250 MG ORAL TABLET 2 po qd x 1 day, then 1 po qd x 4 days 07/12 AZITHROMYCIN 250 MG ORAL TABLET 797061 AZITHROMYCIN Inactive PREDNISONE 20 MG ORAL TABLET 2 tabs daily for 3 days, 1 tab daily for 3 days, 1/2 tab daily for 2 days PREDNISONE 20 MG ORAL TABLET 643304 PREDNISONE Inactive DOXYCYCLINE HYCLATE 100 MG ORAL CAPSULE 1 cap by mouth BID x10 days DOXYCYCLINE HYCLATE 100 MG ORAL CAPSULE 5403065 DOXYCYCLINE HYCLATE Inactive ZITHROMAX 250 MG ORAL TABLET Take two (2 ) tablets day one, then one (1) tablet a day for four (4) more days ZITHROMAX 250 MG ORAL TABLET 871848 AZITHROMYCIN Inactive Advance Directives Directive Description Start [...] Ag - Chemistry sodium, serum 141 mmol/L 057-077 9392/12/17 carbon dioxide, venous blood 30.9 mmol/L 21.0-32.0 [...] 50-136 Encounters Code Encounter Date Provider Facility CPT-82611 [id number] Vst-Est Level IV 08:51:04 YARD COORDINATOR Piotr Daley DO [facility] CPT-97531 [id number] Vst-Est Level III 14:29:05 CDT Piotr W Dei [facility] CPT-64495 Level 3 Est. Patient 15:59:25 YARD COORDINATOR Piotr Daley [facility] CPT-47180 Level 3 Est. Patient 12:33:59 YARD COORDINATOR Piotr Daley [facility] CPT-86760 Level 3 Est. Patient 15:56:17 YARD COORDINATOR Piotr Daley [facility] CPT-73999 Level 3 Est. Patient 10:34:54 YARD COORDINATOR Piotr Daley [facility] CPT-46087 Level 3 Est. Patient 17:10:19 CDT Nella Harris APRN [facility] CPT-04040 Level 3 Est. Patient 10:48:17 YARD COORDINATOR Matthew Rangel MD [facility] CPT-97773 Level 4 Est. Patient 17:15:07 YARD COORDINATOR Piotr Daley [facility] CPT-21963 Level 3 Est. Patient 12:46:13 YARD COORDINATOR Piotr Daley [facility] CPT-31198 Level 3 Est. Patient 15:14:31 YARD COORDINATOR Piotr Daley [facility] CPT-72867 Level 3 Est. Patient 09:20:13 YARD COORDINATOR Piotr Daley [facility] CPT-50217 Level 3 Est. Patient 09:49:40 CDT Piotr Daley [facility] CPT-13360 Level 3 Est. Patient 16:28:11 CDT Piotr Daley [facility] CPT-64548 Level 3 Est. Patient 12:41:58 YARD COORDINATOR Piotr Daley [facility] CPT-55236 Level 3 Est. Patient 09:21:24 CDT Piotr Katie [facility] CPT-67583 Level 3 Est. Patient 09:21:11 CDT Piotr Katie [facility] CPT-87262 Level 3 Est. Patient 11:16:29 YARD COORDINATOR Piotr Wilson Edi [facility] CPT-93710 Level 3 Est. Patient 18:40:19 YARD COORDINATOR Piotr Daley [facility] CPT-94726 Level 3 Est. Patient 19:30:50 CDT Piotr Daley [facility] CPT-09580 Level 3 Est. Patient 22:06:44 CDT Katrina Rinaldi MD [facility] CPT-99900 Level 3 Est. Patient 14:20:00 CDT Piotr Daley [facility] CPT-81092 Level 3 Est. Patient 14:15:22 YARD COORDINATOR Piotr Daley [facility] CPT-72672 Level 3 Est. Patient 20:19:57 YARD COORDINATOR Piotr Daley [facility] CPT-38791 Level 3 Est. Patient 16:44:32 CDT Piotr Daley [facility] CPT-53916 Level 3 Est. Patient 08:48:46 YARD COORDINATOR Piotr Daley [facility] CPT-52628 Level 3 Est. Patient 21:01:21 CDT Piotr Wilson [facility] Procedures Code Procedure Name Date Entry Date Standard Description CPT-Cryo Cryotherapy 08:51:04 YARD COORDINATOR CPT-G0439 Subsequent Annual Wellness Exam 08:51:04 YARD COORDINATOR CPT-38496 Sacroiliac jt < 3V - XRAY USE ONLY 16:45:19 YARD COORDINATOR 05/09 CPT-29813 LS spine comp w obliques - XRAY USE ONLY 14:52:26 YARD COORDINATOR CPT-71315 Chest, 2 views 12:55:58 YARD COORDINATOR CPT-G0439 Subsequent Annual Wellness Exam 10:34:52 YARD COORDINATOR CPT-32791 BMP - LAB USE ONLY 17:19:11 YARD COORDINATOR CPT-03314 PT/INR - LAB USE ONLY 17:19:10 YARD COORDINATOR CPT-35445 Venipuncture Draw Fee 17:19:10 YARD COORDINATOR CPT-43260 PT/INR - LAB USE ONLY 08:12:25 YARD COORDINATOR CPT-88305 Venipuncture Draw Fee 08:12:24 YARD COORDINATOR CPT-08979 Venipuncture Draw Fee 11:31:07 YARD COORDINATOR CPT-47474 TPSA - LAB USE ONLY 11:31:07 YARD COORDINATOR CPT-40976 PT/INR - LAB USE ONLY 11:31:07 YARD COORDINATOR CPT-G0439 [facility] Annual Wellness Exam 09:59:29 YARD COORDINATOR CPT-87359 Creatinine - LAB USE ONLY 14:37:55 YARD COORDINATOR CPT-83123 PT/INR - LAB USE ONLY 14:37:55 YARD COORDINATOR CPT-77561 Venipuncture Draw Fee 14:37:55 YARD COORDINATOR CPT-13704 LS spine comp w obliques - XRAY USE ONLY 12:59:25 YARD COORDINATOR CPT-46871 PT/INR - LAB USE ONLY 13:49:20 CDT CPT-71354 Venipuncture Draw Fee 13:49:19 CDT CPT-30720 PT/INR - LAB USE ONLY 15:48:49 CDT CPT-98427 Venipuncture Draw Fee 15:48:49 CDT CPT-34562 Venipuncture Draw Fee 11:31:59 CDT CPT-14792 PT/INR - LAB USE ONLY 11:31:59 CDT CPT-49613 Venipuncture Draw Fee 13:29:15 CDT CPT-06788 Thoracolumbar AP/Lat 15:19:19 YARD COORDINATOR CPT-G0438 Initial Annual Wellness Exam 12:18:54 YARD COORDINATOR CPT-82773 Knee 3V 09:57:38 CDT CPT-OV Office Visit 15:45:01 YARD COORDINATOR CPT-96224 Abd compl w upright 17:10:25 CDT
--- OUTSIDE RECORDS SUMMARY | 2018-07-18 08:54 | XMS REPORT | Clinical Summary ---
Author Author Admin, [facility] [employer] Address Unknown Phone Unavailable Allergies, Adverse Reactions, [...] Coronary atherosclerosis of unspecified type of vessel, [place] or graft Back pain, thoracic region, left [...] THROMBOPHLEBITIS, LEG, 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 Inactive Sirisha Chen GYROSCOPE TECHNICIAN Seborrheic keratosis ICD-702.19 Inactive Sirisha Chen GYROSCOPE TECHNICIAN Bronchitis-Acute ICD-466.0 Inactive Piotr Daley DO Leg pain, right ICD-729.5 Inactive Sirisha Chen GYROSCOPE TECHNICIAN Right leg pain ICD-729.5 Inactive Sirisha Chen GYROSCOPE TECHNICIAN Bronchitis-Acute ICD-466.0 Inactive Sirisha Chen GYROSCOPE TECHNICIAN Knee pain, left ICD-719.46 Inactive Sirisha Chen GYROSCOPE TECHNICIAN Actinic keratoses ICD-702.0 Inactive Sirisha Chen GYROSCOPE TECHNICIAN Back pain, thoracic region, left ICD-724.1 Inactive Piotr Daley DO Thoracic back pain ICD-724.5 Inactive Sirisha Chen GYROSCOPE TECHNICIAN Back pain lumbar ICD-724.2 Inactive Sirisha Chen GYROSCOPE TECHNICIAN Insect bite ICD-919.4 Inactive Sirisha Chen GYROSCOPE TECHNICIAN Pruritus ICD-698.9 Inactive Sirisha Chen GYROSCOPE TECHNICIAN 04/09 Bronchitis-Acute ICD-466.0 Inactive Sirisha Chen GYROSCOPE TECHNICIAN Dyspnea ICD-786.09 Inactive Sirisha Chen GYROSCOPE TECHNICIAN 05/09 Pes anserinus bursitis, right ICD-726.61 Inactive Piotr Daley DO Medication List Medication Instructions Start Date Stop Date Generic Name NDC Status Provider Patient Instruction TRIAMCINOLONE ACETONIDE 0.1 % EXTERNAL CREAM apply bid sparingly to rash 2017 TRIAMCINOLONE ACETONIDE [id number] No Longer Active Piotr Daley DO Active NYSTATIN 445850 UNIT/GM EXTERNAL CREAM Apply to rash 2-3 times a day and may repeat as needed NYSTATIN 63621714957 No Longer Active Piotr Daley DO Active WARFARIN SODIUM 4 MG ORAL TABLET 1 tablet by mouth daily WARFARIN SODIUM 33042513777 Active Sirisha Chen LPN Active MELOXICAM 15 MG ORAL TABLET 1 po q day for pain with food MELOXICAM 43233425630 Active Piotr Daley DO Active PREDNISONE 10 MG ORAL TABLET 1 tablet by mouth daily PREDNISONE 54788636674 No Longer Active Emelyn Norris Active TESSALON PERLES 100 MG ORAL CAPSULE 1-2 tablet by mouth 3 times daily 04/16 BENZONATATE 64899157254 No Longer Active Emelyn Norris Active PREDNISONE 20 MG ORAL TABLET two tabs by mouth today, then one tab by mouth days two and three PREDNISONE 44988654372 No Longer Active Piotr Daley DO Active CYCLOBENZAPRINE HCL 10 MG ORAL TABLET 1 tablet by mouth three times daily as needed for muscle spasm/pain CYCLOBENZAPRINE HCL 34424644978 Active Sirisha Chen LPN Active ZITHROMAX 250 MG ORAL TABLET Take two (2 ) tablets day one, then one (1) tablet a day for four (4) more days AZITHROMYCIN 95368402210 No Longer Active Piotr Daley DO Active PROAIR HFA 108 (90 BASE) MCG/ACT INHALATION AEROSOL SOLUTION 1-2 puffs four times a day as needed ALBUTEROL SULFATE 78377241260 No Longer Active Emelyn Norris Active DOXYCYCLINE HYCLATE 100 MG ORAL CAPSULE 1 cap by mouth BID x10 days DOXYCYCLINE HYCLATE 76012048086 No Longer Active Nella Harris APRN Active PREDNISONE 20 MG ORAL TABLET 2 tabs daily for 3 days, 1 tab daily for 3 days, 1/2 tab daily for 2 days PREDNISONE 62053939778 No Longer Active Matthew Rangel MD Active TRAMADOL HCL 50 MG ORAL TABLET 1 po tid with ES Tylenol TRAMADOL HCL 93101055510 No Longer Active Matthew Rangel MD Active GABAPENTIN 300 MG ORAL CAPSULE 1 po q hs for nerve pain GABAPENTIN 39264584028 No Longer Active Matthew Rangel MD Active PREDNISONE 20 MG ORAL TABLET 2 tablets today, then 1 tablet days 2 through 4 PREDNISONE 32116212978 No Longer Active Piotr Daley DO Active AZITHROMYCIN 250 MG ORAL TABLET 2 po qd x 1 day, then 1 po qd x 4 days 07/12 AZITHROMYCIN 89422207917 No Longer Active Piotr Daley DO Active IBUPROFEN 800 MG ORAL TABLET 1 tab every 8 hours as needed 07/12 IBUPROFEN 32195178453 No Longer Active Piotr Daley DO Active LOMOTIL 2.5-0.025 MG ORAL TABLET 1 to 2 four times a day as needed for diarrhea DIPHENOXYLATE-ATROPINE 26394232550 No Longer Active Piotr Daley DO Active WARFARIN SODIUM 4 MG ORAL TABLET 1 tab every evening WARFARIN SODIUM 85671454586 No Longer Active Piotr Daley DO Active PREDNISONE 20 MG ORAL TABLET 1 tablet twice daily for 2 days, then 1 tablet once daily for 2 days PREDNISONE 54668430035 No Longer Active Piotr Daley DO Active PROMETHAZINE HCL 25 MG ORAL TABLET 1 four times a day as needed for nausea/ vomiting PROMETHAZINE HCL 52129284785 No Longer Active Piotr Daley DO Active TUSSIONEX PENNKINETIC ER 10-8 MG/5ML ORAL SUSPENSION EXTENDED RELEASE 5ml po q12hr PRN Cough HYDROCOD POLST-CHLORPHEN POLST 28759028762 No Longer Active Piotr Daley DO Active AZITHROMYCIN 250 MG ORAL TABLET 2 po qd x 1 day, then 1 po qd x 4 days 10/13 AZITHROMYCIN 86211997353 No Longer Active Piotr Daley DO Active AZITHROMYCIN 250 MG ORAL TABLET 2 po qd x 1 day, then 1 po qd x 4 days 05/07 AZITHROMYCIN 07641036131 No Longer Active Piotr Daley DO Active LISINOPRIL-HYDROCHLOROTHIAZIDE 10-12.5 MG ORAL TABLET 1 tab by mouth daily LISINOPRIL-HYDROCHLOROTHIAZIDE 69374834939 Active Piotr Daley DO Active LISINOPRIL 10 MG ORAL TABLET 1/2-1 tab po every other day LISINOPRIL 29955847570 No Longer Active Piotr Daley DO Active VENTOLIN HFA 108 (90 Base) MCG/ACT INHALATION AEROSOL SOLUTION 2 puffs four times a day PRN cough ALBUTEROL SULFATE 14284394095 No Longer Active Piotr Daley DO Active NYSTATIN-TRIAMCINOLONE 095816-5.1 UNIT/GM-% EXTERNAL CREAM Apply to area BID NYSTATIN-TRIAMCINOLONE 58534257743 No Longer Active Alena Chavira GYROSCOPE TECHNICIAN Active PHISOHEX 3 % LIQD Use Directed HEXACHLOROPHENE 76571514656 No Longer Active Sandra [place] Active AZITHROMYCIN 250 MG ORAL TABLET 2 po qd x 1 day, then 1 po qd x 4 days 10/21 AZITHROMYCIN 42307743662 No Longer Active Katrina Rinaldi MD PhD Active AZITHROMYCIN 250 MG ORAL TABLET 2 po qd x 1 day, then 1 po qd x 4 days 10/16 AZITHROMYCIN 79982432624 No Longer Active Piotr Daley DO Active AZITHROMYCIN 500 MG INTRAVENOUS SOLUTION RECONSTITUTED 1 po q day AZITHROMYCIN 04686659322 No Longer Active Piotr Daley DO Active NYSTATIN-TRIAMCINOLONE 253751-4.1 UNIT/GM-% EXTERNAL CREAM apply bid NYSTATIN-TRIAMCINOLONE 13150592292 No Longer Active Piotr Daley DO Active IBUPROFEN 800 MG ORAL TABLET 1 po q 8 hours prn pain sparinly IBUPROFEN 41310293685 No Longer Active Piotr Daley DO Active VITAMIN D3 5000 UNIT ORAL CAPSULE 1 po daily CHOLECALCIFEROL 15783503265 Active Piotr Daley DO Active IBUPROFEN 800 MG ORAL TABLET 1 po q 8 hours prn pain sparinly IBUPROFEN 800 MG ORAL TABLET 043741 IBUPROFEN Inactive NYSTATIN-TRIAMCINOLONE 020030-0.1 UNIT/GM-% EXTERNAL CREAM apply bid NYSTATIN-TRIAMCINOLONE 736467-0.1 UNIT/GM-% EXTERNAL CREAM 5903256 NYSTATIN-TRIAMCINOLONE Inactive AZITHROMYCIN 500 MG INTRAVENOUS SOLUTION RECONSTITUTED 1 po q day AZITHROMYCIN 500 MG INTRAVENOUS SOLUTION RECONSTITUTED 34365511452 AZITHROMYCIN Inactive VENTOLIN HFA 108 (90 Base) MCG/ACT INHALATION AEROSOL SOLUTION 2 puffs four times a day PRN cough VENTOLIN HFA 108 (90 Base) MCG/ ACT INHALATION AEROSOL SOLUTION ALBUTEROL SULFATE Inactive LISINOPRIL 10 MG ORAL TABLET 1/2-1 tab po every other day LISINOPRIL 10 MG ORAL TABLET 948502 LISINOPRIL Inactive TUSSIONEX PENNKINETIC ER 10-8 MG/5ML ORAL SUSPENSION EXTENDED RELEASE 5ml po q12hr PRN Cough TUSSIONEX PENNKINETIC ER 10-8 MG/5ML ORAL SUSPENSION EXTENDED RELEASE HYDROCOD POLST-CHLORPHEN POLST Inactive PROMETHAZINE HCL 25 MG ORAL TABLET 1 four times a day as needed for nausea/ vomiting PROMETHAZINE HCL 25 MG ORAL TABLET 862296 PROMETHAZINE HCL Inactive PREDNISONE 20 MG ORAL TABLET 1 tablet twice daily for 2 days, then 1 tablet once daily for 2 days PREDNISONE 20 MG ORAL TABLET 204982 PREDNISONE Inactive WARFARIN SODIUM 4 MG ORAL TABLET 1 tab every evening WARFARIN SODIUM 4 MG ORAL TABLET 863089 WARFARIN SODIUM Inactive LOMOTIL 2.5-0.025 MG ORAL TABLET 1 to 2 four times a day as needed for diarrhea LOMOTIL 2.5-0.025 MG ORAL TABLET 0382000 DIPHENOXYLATE-ATROPINE Inactive IBUPROFEN 800 MG ORAL TABLET 1 tab every 8 hours as needed 07/12 IBUPROFEN 800 MG ORAL TABLET 052399 IBUPROFEN Inactive PREDNISONE 20 MG ORAL TABLET 2 tablets today, then 1 tablet days 2 through 4 PREDNISONE 20 MG ORAL TABLET 169866 PREDNISONE Inactive GABAPENTIN 300 MG ORAL CAPSULE 1 po q hs for nerve pain GABAPENTIN 300 MG ORAL CAPSULE 586535 GABAPENTIN Inactive TRAMADOL HCL 50 MG ORAL TABLET 1 po tid with ES Tylenol TRAMADOL HCL 50 MG ORAL TABLET 310660 TRAMADOL HCL Inactive PROAIR HFA 108 (90 BASE) MCG/ACT INHALATION AEROSOL SOLUTION 1-2 puffs four times a day as needed PROAIR HFA 108 (90 BASE) MCG/ACT INHALATION AEROSOL SOLUTION ALBUTEROL SULFATE Inactive PREDNISONE 20 MG ORAL TABLET two tabs by mouth today, then one tab by mouth days two and three PREDNISONE 20 MG ORAL TABLET 526090 PREDNISONE Inactive TESSALON PERLES 100 MG ORAL CAPSULE 1-2 tablet by mouth 3 times daily 04/16 TESSALON PERLES 100 MG ORAL CAPSULE 939230 BENZONATATE Inactive PREDNISONE 10 MG ORAL TABLET 1 tablet by mouth daily PREDNISONE 10 MG ORAL TABLET 201353 PREDNISONE Inactive NYSTATIN 540387 UNIT/GM EXTERNAL CREAM Apply to rash 2-3 times a day and may repeat as needed NYSTATIN 500685 UNIT/GM EXTERNAL CREAM 086628 NYSTATIN Inactive TRIAMCINOLONE ACETONIDE 0.1 % EXTERNAL CREAM apply bid sparingly to rash 2017 TRIAMCINOLONE ACETONIDE 0.1 % EXTERNAL CREAM 7738228 TRIAMCINOLONE ACETONIDE Inactive AZITHROMYCIN 250 MG ORAL TABLET 2 po qd x 1 day, then 1 po qd x 4 days 10/16 AZITHROMYCIN 250 MG ORAL TABLET 123775 AZITHROMYCIN Inactive AZITHROMYCIN 250 MG ORAL TABLET 2 po qd x 1 day, then 1 po qd x 4 days 10/21 AZITHROMYCIN 250 MG ORAL TABLET 923337 AZITHROMYCIN Inactive NYSTATIN-TRIAMCINOLONE 644631-6.1 UNIT/GM-% EXTERNAL CREAM Apply to area BID NYSTATIN-TRIAMCINOLONE 173868-2.1 UNIT/GM-% EXTERNAL CREAM 1054488 NYSTATIN-TRIAMCINOLONE Inactive AZITHROMYCIN 250 MG ORAL TABLET 2 po qd x 1 day, then 1 po qd x 4 days 05/07 AZITHROMYCIN 250 MG ORAL TABLET 467294 AZITHROMYCIN Inactive AZITHROMYCIN 250 MG ORAL TABLET 2 po qd x 1 day, then 1 po qd x 4 days 10/13 AZITHROMYCIN 250 MG ORAL TABLET 729700 AZITHROMYCIN Inactive AZITHROMYCIN 250 MG ORAL TABLET 2 po qd x 1 day, then 1 po qd x 4 days 07/12 AZITHROMYCIN 250 MG ORAL TABLET 525860 AZITHROMYCIN Inactive PREDNISONE 20 MG ORAL TABLET 2 tabs daily for 3 days, 1 tab daily for 3 days, 1/2 tab daily for 2 days PREDNISONE 20 MG ORAL TABLET 603965 PREDNISONE Inactive DOXYCYCLINE HYCLATE 100 MG ORAL CAPSULE 1 cap by mouth BID x10 days DOXYCYCLINE HYCLATE 100 MG ORAL CAPSULE 9912306 DOXYCYCLINE HYCLATE Inactive ZITHROMAX 250 MG ORAL TABLET Take two (2 ) tablets day one, then one (1) tablet a day for four (4) more days ZITHROMAX 250 MG ORAL TABLET 035400 AZITHROMYCIN Inactive Advance Directives Directive Description Start [...] Ag - Chemistry sodium, serum 141 mmol/L 044-667 5884/12/17 carbon dioxide, venous blood 30.9 mmol/L 21.0-32.0 [...] 50-136 Encounters Code Encounter Date Provider Facility CPT-86240 [id number] Vst-Est Level IV 08:51:04 BOOKING OFFICER Piotr Daley DO [facility] CPT-18131 [id number] Vst-Est Level III 14:29:05 CDT Piotr W Edi [facility] CPT-38361 Level 3 Est. Patient 15:59:25 BOOKING OFFICER Piotr Daley [facility] CPT-28338 Level 3 Est. Patient 12:33:59 BOOKING OFFICER Piotr Daley [facility] CPT-07199 Level 3 Est. Patient 15:56:17 BOOKING OFFICER Piotr Daley [facility] CPT-89210 Level 3 Est. Patient 10:34:54 BOOKING OFFICER Piotr Daley [facility] CPT-51729 Level 3 Est. Patient 17:10:19 CDT Nella Harris APRN [facility] CPT-64801 Level 3 Est. Patient 10:48:17 BOOKING OFFICER Matthew Rangel MD [facility] CPT-50072 Level 4 Est. Patient 17:15:07 BOOKING OFFICER Piotr Daley [facility] CPT-33601 Level 3 Est. Patient 12:46:13 BOOKING OFFICER Piotr Daley [facility] CPT-04531 Level 3 Est. Patient 15:14:31 BOOKING OFFICER Piotr Daley [facility] CPT-12218 Level 3 Est. Patient 09:20:13 BOOKING OFFICER Piotr Daley [facility] CPT-56718 Level 3 Est. Patient 09:49:40 CDT Piotr Daley [facility] CPT-01465 Level 3 Est. Patient 16:28:11 CDT Piotr Daley [facility] CPT-82571 Level 3 Est. Patient 12:41:58 BOOKING OFFICER Piotr Daley [facility] CPT-55092 Level 3 Est. Patient 09:21:24 CDT Piotr Katie [facility] CPT-53916 Level 3 Est. Patient 09:21:11 CDT Piotr Katie [facility] CPT-76337 Level 3 Est. Patient 11:16:29 BOOKING OFFICER Piotr Wilson Edi [facility] CPT-28765 Level 3 Est. Patient 18:40:19 BOOKING OFFICER Piotr Daley [facility] CPT-06206 Level 3 Est. Patient 19:30:50 CDT Piotr Daley [facility] CPT-16162 Level 3 Est. Patient 22:06:44 CDT Katrina Rinaldi MD [facility] CPT-91421 Level 3 Est. Patient 14:20:00 CDT Piotr Daley [facility] CPT-92932 Level 3 Est. Patient 14:15:22 BOOKING OFFICER Piotr Daley [facility] CPT-14249 Level 3 Est. Patient 20:19:57 BOOKING OFFICER Piotr Daley [facility] CPT-08569 Level 3 Est. Patient 16:44:32 CDT Piotr Daley [facility] CPT-62476 Level 3 Est. Patient 08:48:46 BOOKING OFFICER Piotr Daley [facility] CPT-28512 Level 3 Est. Patient 21:01:21 CDT Piotr Wilson [facility] Procedures Code Procedure Name Date Entry Date Standard Description CPT-Cryo Cryotherapy 08:51:04 BOOKING OFFICER CPT-G0439 Subsequent Annual Wellness Exam 08:51:04 BOOKING OFFICER CPT-38062 Sacroiliac jt < 3V - XRAY USE ONLY 16:45:19 BOOKING OFFICER 05/09 CPT-11527 LS spine comp w obliques - XRAY USE ONLY 14:52:26 BOOKING OFFICER CPT-29031 Chest, 2 views 12:55:58 BOOKING OFFICER CPT-G0439 Subsequent Annual Wellness Exam 10:34:52 BOOKING OFFICER CPT-85165 BMP - LAB USE ONLY 17:19:11 BOOKING OFFICER CPT-28816 PT/INR - LAB USE ONLY 17:19:10 BOOKING OFFICER CPT-71952 Venipuncture Draw Fee 17:19:10 BOOKING OFFICER CPT-21890 PT/INR - LAB USE ONLY 08:12:25 BOOKING OFFICER CPT-01440 Venipuncture Draw Fee 08:12:24 BOOKING OFFICER CPT-91286 Venipuncture Draw Fee 11:31:07 BOOKING OFFICER CPT-60423 TPSA - LAB USE ONLY 11:31:07 BOOKING OFFICER CPT-36094 PT/INR - LAB USE ONLY 11:31:07 BOOKING OFFICER CPT-G0439 [facility] Annual Wellness Exam 09:59:29 BOOKING OFFICER CPT-16870 Creatinine - LAB USE ONLY 14:37:55 BOOKING OFFICER CPT-18331 PT/INR - LAB USE ONLY 14:37:55 BOOKING OFFICER CPT-84263 Venipuncture Draw Fee 14:37:55 BOOKING OFFICER CPT-32699 LS spine comp w obliques - XRAY USE ONLY 12:59:25 BOOKING OFFICER CPT-95073 PT/INR - LAB USE ONLY 13:49:20 CDT CPT-49991 Venipuncture Draw Fee 13:49:19 CDT CPT-66686 PT/INR - LAB USE ONLY 15:48:49 CDT CPT-08687 Venipuncture Draw Fee 15:48:49 CDT CPT-26758 Venipuncture Draw Fee 11:31:59 CDT CPT-91600 PT/INR - LAB USE ONLY 11:31:59 CDT CPT-87258 Venipuncture Draw Fee 13:29:15 CDT CPT-23993 Thoracolumbar AP/Lat 15:19:19 BOOKING OFFICER CPT-G0438 Initial Annual Wellness Exam 12:18:54 BOOKING OFFICER CPT-74476 Knee 3V 09:57:38 CDT CPT-OV Office Visit 15:45:01 BOOKING OFFICER CPT-87479 Abd compl w upright 17:10:25 CDT
--- OUTSIDE RECORDS SUMMARY | 2018-07-18 08:55 | XMS REPORT | Clinical Summary ---
Author Author Admin, E Organization [email or web address] Address Unknown Phone Unavailable Allergies, Adverse Reactions, [...] neoplasm of prostate V10.46 Active Alina Meyers LAMINATOR PREFORMS Personal history of malignant neoplasm of prostate Coronary artery disease 414.00 Active Alina Meyers APRN Coronary atherosclerosis of unspecified type of vessel, [place] or graft Back pain, thoracic region, left [...] Chen LPN Seborrheic keratosis ICD-702.19 Inactive Sirisha Chne SYNTHETIC GEM PRESS OPERATOR Bronchitis-Acute ICD-466.0 Inactive Piotr Daley DO Leg pain, right ICD-729.5 Inactive Sirisha Chen SYNTHETIC GEM PRESS OPERATOR Right leg pain ICD-729.5 Inactive Sirisha Chen SYNTHETIC GEM PRESS OPERATOR Bronchitis-Acute ICD-466.0 Inactive Sirisha Chen SYNTHETIC GEM PRESS OPERATOR Knee pain, left ICD-719.46 Inactive Sirisha Chen SYNTHETIC GEM PRESS OPERATOR Actinic keratoses ICD-702.0 Inactive Sirisha Chen SYNTHETIC GEM PRESS OPERATOR Back pain, thoracic region, left ICD-724.1 Inactive Piotr Daley DO Thoracic back pain ICD-724.5 Inactive Sirisha Chen SYNTHETIC GEM PRESS OPERATOR Back pain lumbar ICD-724.2 Inactive Sirisha Chen SYNTHETIC GEM PRESS OPERATOR Insect bite ICD-919.4 Inactive Sirisha Chen SYNTHETIC GEM PRESS OPERATOR Pruritus ICD-698.9 Inactive Sirisha Chen SYNTHETIC GEM PRESS OPERATOR 04/09 Bronchitis-Acute ICD-466.0 Inactive Sirisha Chen SYNTHETIC GEM PRESS OPERATOR Dyspnea ICD-786.09 Inactive Sirisha Chen SYNTHETIC GEM PRESS OPERATOR 05/09 Pes anserinus bursitis, right ICD-726.61 Inactive Piotr Daley DO Medication List Medication Instructions Start Date Stop Date Generic Name NDC Status Provider Patient Instruction TRIAMCINOLONE ACETONIDE 0.1 % EXTERNAL CREAM apply bid sparingly to rash 2017 TRIAMCINOLONE ACETONIDE 18231714338 No Longer Active Piotr Daley DO Active NYSTATIN 996754 UNIT/GM EXTERNAL CREAM Apply to rash 2-3 times a day and may repeat as needed NYSTATIN 26335204844 No Longer Active Piotr Daley DO Active WARFARIN SODIUM 4 MG ORAL TABLET 1 tablet by mouth daily WARFARIN SODIUM 09672595459 Active Sirisha Chen LPN Active MELOXICAM 15 MG ORAL TABLET 1 po q day for pain with food MELOXICAM 17568835034 Active Piotr Daley DO Active PREDNISONE 10 MG ORAL TABLET 1 tablet by mouth daily PREDNISONE 24289857824 No Longer Active Emelyn Norris Active TESSALON PERLES 100 MG ORAL CAPSULE 1-2 tablet by mouth 3 times daily 04/16 BENZONATATE 92377460701 No Longer Active Emelyn Norris Active PREDNISONE 20 MG ORAL TABLET two tabs by mouth today, then one tab by mouth days two and three PREDNISONE 93900282320 No Longer Active Piotr Daley DO Active CYCLOBENZAPRINE HCL 10 MG ORAL TABLET 1 tablet by mouth three times daily as needed for muscle spasm/pain CYCLOBENZAPRINE HCL 33174881492 Active Sirisha Chen LPN Active ZITHROMAX 250 MG ORAL TABLET Take two (2 ) tablets day one, then one (1) tablet a day for four (4) more days AZITHROMYCIN 20175454660 No Longer Active Piotr Daley DO Active PROAIR HFA 108 (90 BASE) MCG/ACT INHALATION AEROSOL SOLUTION 1-2 puffs four times a day as needed ALBUTEROL SULFATE 29166542404 No Longer Active Emelyn Norris Active DOXYCYCLINE HYCLATE 100 MG ORAL CAPSULE 1 cap by mouth BID x10 days DOXYCYCLINE HYCLATE 62875284345 No Longer Active Nella Harris APRN Active PREDNISONE 20 MG ORAL TABLET 2 tabs daily for 3 days, 1 tab daily for 3 days, 1/2 tab daily for 2 days PREDNISONE 22759446879 No Longer Active Matthew Rangel MD Active TRAMADOL HCL 50 MG ORAL TABLET 1 po tid with ES Tylenol TRAMADOL HCL 19883883569 No Longer Active Matthew Rangel MD Active GABAPENTIN 300 MG ORAL CAPSULE 1 po q hs for nerve pain GABAPENTIN 11547551040 No Longer Active Matthew Rangel MD Active PREDNISONE 20 MG ORAL TABLET 2 tablets today, then 1 tablet days 2 through 4 PREDNISONE 32664334933 No Longer Active Piotr Daley DO Active AZITHROMYCIN 250 MG ORAL TABLET 2 po qd x 1 day, then 1 po qd x 4 days 07/12 AZITHROMYCIN 82413239570 No Longer Active Piotr Daley DO Active IBUPROFEN 800 MG ORAL TABLET 1 tab every 8 hours as needed 07/12 IBUPROFEN 28581345684 No Longer Active Piotr Daley DO Active LOMOTIL 2.5-0.025 MG ORAL TABLET 1 to 2 four times a day as needed for diarrhea DIPHENOXYLATE-ATROPINE 39008008031 No Longer Active Piotr Daley DO Active WARFARIN SODIUM 4 MG ORAL TABLET 1 tab every evening WARFARIN SODIUM 31962486380 No Longer Active Piotr Daley DO Active PREDNISONE 20 MG ORAL TABLET 1 tablet twice daily for 2 days, then 1 tablet once daily for 2 days PREDNISONE 09297639270 No Longer Active Piotr Daley DO Active PROMETHAZINE HCL 25 MG ORAL TABLET 1 four times a day as needed for nausea/ vomiting PROMETHAZINE HCL 08020632395 No Longer Active Piotr Daley DO Active TUSSIONEX PENNKINETIC ER 10-8 MG/5ML ORAL SUSPENSION EXTENDED RELEASE 5ml po q12hr PRN Cough HYDROCOD POLST-CHLORPHEN POLST 54217964490 No Longer Active Piotr Daley DO Active AZITHROMYCIN 250 MG ORAL TABLET 2 po qd x 1 day, then 1 po qd x 4 days 10/13 AZITHROMYCIN 21803579015 No Longer Active Piotr Daley DO Active AZITHROMYCIN 250 MG ORAL TABLET 2 po qd x 1 day, then 1 po qd x 4 days 05/07 AZITHROMYCIN 28573016143 No Longer Active Piotr Daley DO Active LISINOPRIL-HYDROCHLOROTHIAZIDE 10-12.5 MG ORAL TABLET 1 tab by mouth daily LISINOPRIL-HYDROCHLOROTHIAZIDE 88696917859 Active Piotr Daley DO Active LISINOPRIL 10 MG ORAL TABLET 1/2-1 tab po every other day LISINOPRIL 29539537325 No Longer Active Piotr Daley DO Active VENTOLIN HFA 108 (90 Base) MCG/ACT INHALATION AEROSOL SOLUTION 2 puffs four times a day PRN cough ALBUTEROL SULFATE 15517630264 No Longer Active Piotr Daley DO Active NYSTATIN-TRIAMCINOLONE 941285-4.1 UNIT/GM-% EXTERNAL CREAM Apply to area BID NYSTATIN-TRIAMCINOLONE 46480727407 No Longer Active Alena Chavira SYNTHETIC GEM PRESS OPERATOR Active PHISOHEX 3 % LIQD Use Directed HEXACHLOROPHENE 78116847286 No Longer Active Sandra [place] Active AZITHROMYCIN 250 MG ORAL TABLET 2 po qd x 1 day, then 1 po qd x 4 days 10/21 AZITHROMYCIN 78747084313 No Longer Active Katrina Rinaldi MD PhD Active AZITHROMYCIN 250 MG ORAL TABLET 2 po qd x 1 day, then 1 po qd x 4 days 10/16 AZITHROMYCIN 50229818711 No Longer Active Piotr Daley DO Active AZITHROMYCIN 500 MG INTRAVENOUS SOLUTION RECONSTITUTED 1 po q day AZITHROMYCIN 07554452336 No Longer Active Piotr Daley DO Active NYSTATIN-TRIAMCINOLONE 524570-5.1 UNIT/GM-% EXTERNAL CREAM apply bid NYSTATIN-TRIAMCINOLONE 43498536040 No Longer Active Piotr Daley DO Active IBUPROFEN 800 MG ORAL TABLET 1 po q 8 hours prn pain sparinly IBUPROFEN 71572467040 No Longer Active Piotr Daley DO Active VITAMIN D3 5000 UNIT ORAL CAPSULE 1 po daily CHOLECALCIFEROL 27745720574 Active Piotr Daley DO Active IBUPROFEN 800 MG ORAL TABLET 1 po q 8 hours prn pain sparinly IBUPROFEN 800 MG ORAL TABLET 882347 IBUPROFEN Inactive NYSTATIN-TRIAMCINOLONE 435033-7.1 UNIT/GM-% EXTERNAL CREAM apply bid NYSTATIN-TRIAMCINOLONE 233526-2.1 UNIT/GM-% EXTERNAL CREAM 3766938 NYSTATIN-TRIAMCINOLONE Inactive AZITHROMYCIN 500 MG INTRAVENOUS SOLUTION RECONSTITUTED 1 po q day AZITHROMYCIN 500 MG INTRAVENOUS SOLUTION RECONSTITUTED 64282771299 AZITHROMYCIN Inactive VENTOLIN HFA 108 (90 Base) MCG/ACT INHALATION AEROSOL SOLUTION 2 puffs four times a day PRN cough VENTOLIN HFA 108 (90 Base) MCG/ ACT INHALATION AEROSOL SOLUTION ALBUTEROL SULFATE Inactive LISINOPRIL 10 MG ORAL TABLET 1/2-1 tab po every other day LISINOPRIL 10 MG ORAL TABLET 547259 LISINOPRIL Inactive TUSSIONEX PENNKINETIC ER 10-8 MG/5ML ORAL SUSPENSION EXTENDED RELEASE 5ml po q12hr PRN Cough TUSSIONEX PENNKINETIC ER 10-8 MG/5ML ORAL SUSPENSION EXTENDED RELEASE HYDROCOD POLST-CHLORPHEN POLST Inactive PROMETHAZINE HCL 25 MG ORAL TABLET 1 four times a day as needed for nausea/ vomiting PROMETHAZINE HCL 25 MG ORAL TABLET 997295 PROMETHAZINE HCL Inactive PREDNISONE 20 MG ORAL TABLET 1 tablet twice daily for 2 days, then 1 tablet once daily for 2 days PREDNISONE 20 MG ORAL TABLET 394637 PREDNISONE Inactive WARFARIN SODIUM 4 MG ORAL TABLET 1 tab every evening WARFARIN SODIUM 4 MG ORAL TABLET 323010 WARFARIN SODIUM Inactive LOMOTIL 2.5-0.025 MG ORAL TABLET 1 to 2 four times a day as needed for diarrhea LOMOTIL 2.5-0.025 MG ORAL TABLET 0528196 DIPHENOXYLATE-ATROPINE Inactive IBUPROFEN 800 MG ORAL TABLET 1 tab every 8 hours as needed 07/12 IBUPROFEN 800 MG ORAL TABLET 511134 IBUPROFEN Inactive PREDNISONE 20 MG ORAL TABLET 2 tablets today, then 1 tablet days 2 through 4 PREDNISONE 20 MG ORAL TABLET 283397 PREDNISONE Inactive GABAPENTIN 300 MG ORAL CAPSULE 1 po q hs for nerve pain GABAPENTIN 300 MG ORAL CAPSULE 054487 GABAPENTIN Inactive TRAMADOL HCL 50 MG ORAL TABLET 1 po tid with ES Tylenol TRAMADOL HCL 50 MG ORAL TABLET 191407 TRAMADOL HCL Inactive PROAIR HFA 108 (90 BASE) MCG/ACT INHALATION AEROSOL SOLUTION 1-2 puffs four times a day as needed PROAIR HFA 108 (90 BASE) MCG/ACT INHALATION AEROSOL SOLUTION ALBUTEROL SULFATE Inactive PREDNISONE 20 MG ORAL TABLET two tabs by mouth today, then one tab by mouth days two and three PREDNISONE 20 MG ORAL TABLET 626786 PREDNISONE Inactive TESSALON PERLES 100 MG ORAL CAPSULE 1-2 tablet by mouth 3 times daily 04/16 TESSALON PERLES 100 MG ORAL CAPSULE 790296 BENZONATATE Inactive PREDNISONE 10 MG ORAL TABLET 1 tablet by mouth daily PREDNISONE 10 MG ORAL TABLET 370492 PREDNISONE Inactive NYSTATIN 846017 UNIT/GM EXTERNAL CREAM Apply to rash 2-3 times a day and may repeat as needed NYSTATIN 300824 UNIT/GM EXTERNAL CREAM 732203 NYSTATIN Inactive TRIAMCINOLONE ACETONIDE 0.1 % EXTERNAL CREAM apply bid sparingly to rash 2017 TRIAMCINOLONE ACETONIDE 0.1 % EXTERNAL CREAM 2712245 TRIAMCINOLONE ACETONIDE Inactive AZITHROMYCIN 250 MG ORAL TABLET 2 po qd x 1 day, then 1 po qd x 4 days 10/16 AZITHROMYCIN 250 MG ORAL TABLET 434640 AZITHROMYCIN Inactive AZITHROMYCIN 250 MG ORAL TABLET 2 po qd x 1 day, then 1 po qd x 4 days 10/21 AZITHROMYCIN 250 MG ORAL TABLET 197123 AZITHROMYCIN Inactive NYSTATIN-TRIAMCINOLONE 607410-3.1 UNIT/GM-% EXTERNAL CREAM Apply to area BID NYSTATIN-TRIAMCINOLONE 560712-7.1 UNIT/GM-% EXTERNAL CREAM 0102974 NYSTATIN-TRIAMCINOLONE Inactive AZITHROMYCIN 250 MG ORAL TABLET 2 po qd x 1 day, then 1 po qd x 4 days 05/07 AZITHROMYCIN 250 MG ORAL TABLET 672283 AZITHROMYCIN Inactive AZITHROMYCIN 250 MG ORAL TABLET 2 po qd x 1 day, then 1 po qd x 4 days 10/13 AZITHROMYCIN 250 MG ORAL TABLET 565633 AZITHROMYCIN Inactive AZITHROMYCIN 250 MG ORAL TABLET 2 po qd x 1 day, then 1 po qd x 4 days 07/12 AZITHROMYCIN 250 MG ORAL TABLET 511729 AZITHROMYCIN Inactive PREDNISONE 20 MG ORAL TABLET 2 tabs daily for 3 days, 1 tab daily for 3 days, 1/2 tab daily for 2 days PREDNISONE 20 MG ORAL TABLET 857505 PREDNISONE Inactive DOXYCYCLINE HYCLATE 100 MG ORAL CAPSULE 1 cap by mouth BID x10 days DOXYCYCLINE HYCLATE 100 MG ORAL CAPSULE 7231055 DOXYCYCLINE HYCLATE Inactive ZITHROMAX 250 MG ORAL TABLET Take two (2 ) tablets day one, then one (1) tablet a day for four (4) more days ZITHROMAX 250 MG ORAL TABLET 352382 AZITHROMYCIN Inactive Advance Directives Directive Description Start [...] Ag - Chemistry sodium, serum 141 mmol/L 550-710 3246/12/17 carbon dioxide, venous blood 30.9 mmol/L 21.0-32.0 [...] 50-136 Encounters Code Encounter Date Provider Facility CPT-90875 [id number] Vst-Est Level IV 08:51:04 MATERIAL CHECKER Piotr Daley DO [facility] CPT-39660 [id number] Vst-Est Level III 14:29:05 CDT Piotr W Edi [facility] CPT-74056 Level 3 Est. Patient 15:59:25 MATERIAL CHECKER Piotr Daley [facility] CPT-19017 Level 3 Est. Patient 12:33:59 MATERIAL CHECKER Piotr Daley [facility] CPT-15458 Level 3 Est. Patient 15:56:17 MATERIAL CHECKER Piotr Daley [facility] CPT-46498 Level 3 Est. Patient 10:34:54 MATERIAL CHECKER Piotr Daley [facility] CPT-35648 Level 3 Est. Patient 17:10:19 CDT Nella Harris APRN [facility] CPT-45953 Level 3 Est. Patient 10:48:17 MATERIAL CHECKER Matthew Rangel MD [facility] CPT-57650 Level 4 Est. Patient 17:15:07 MATERIAL CHECKER Piotr Daley [facility] CPT-45834 Level 3 Est. Patient 12:46:13 MATERIAL CHECKER Piotr Daley [facility] CPT-41939 Level 3 Est. Patient 15:14:31 MATERIAL CHECKER Piotr Daley [facility] CPT-81353 Level 3 Est. Patient 09:20:13 MATERIAL CHECKER Piotr Daley [facility] CPT-37738 Level 3 Est. Patient 09:49:40 CDT Piotr Daley [facility] CPT-19278 Level 3 Est. Patient 16:28:11 CDT Piotr Katie Daley [facility] CPT-58851 Level 3 Est. Patient 12:41:58 MATERIAL CHECKER Piotr Daley [facility] CPT-35155 Level 3 Est. Patient 09:21:24 CDT Piotr Wilson [facility] CPT-49703 Level 3 Est. Patient 09:21:11 CDT Piotr Wilson Edi [facility] CPT-68464 Level 3 Est. Patient 11:16:29 MATERIAL CHECKER Piotr Wilson Edi [facility] CPT-02284 Level 3 Est. Patient 18:40:19 MATERIAL CHECKER Piotr Daley [facility] CPT-43120 Level 3 Est. Patient 19:30:50 CDT Piotr Daley [facility] CPT-65053 Level 3 Est. Patient 22:06:44 CDT Katrina Rinaldi MD [facility] CPT-82623 Level 3 Est. Patient 14:20:00 CDT Piotr Daley [facility] CPT-40109 Level 3 Est. Patient 14:15:22 MATERIAL CHECKER Piotr Daley [facility] CPT-51917 Level 3 Est. Patient 20:19:57 MATERIAL CHECKER Piotr Daley [facility] CPT-29262 Level 3 Est. Patient 16:44:32 CDT Piotr Daley [facility] CPT-98397 Level 3 Est. Patient 08:48:46 MATERIAL CHECKER Piotr Daley [facility] CPT-53504 Level 3 Est. Patient 21:01:21 CDT Piotr Wilson [facility] Procedures Code Procedure Name Date Entry Date Standard Description CPT-Cryo Cryotherapy 08:51:04 MATERIAL CHECKER CPT-G0439 Subsequent Annual Wellness Exam 08:51:04 MATERIAL CHECKER CPT-48934 Sacroiliac jt < 3V - XRAY USE ONLY 16:45:19 MATERIAL CHECKER 05/09 CPT-02669 LS spine comp w obliques - XRAY USE ONLY 14:52:26 MATERIAL CHECKER CPT-75021 Chest, 2 views 12:55:58 MATERIAL CHECKER CPT-G0439 Subsequent Annual Wellness Exam 10:34:52 MATERIAL CHECKER CPT-59117 BMP - LAB USE ONLY 17:19:11 MATERIAL CHECKER CPT-68638 PT/INR - LAB USE ONLY 17:19:10 MATERIAL CHECKER CPT-25828 Venipuncture Draw Fee 17:19:10 MATERIAL CHECKER CPT-00848 PT/INR - LAB USE ONLY 08:12:25 MATERIAL CHECKER CPT-28020 Venipuncture Draw Fee 08:12:24 MATERIAL CHECKER CPT-60239 Venipuncture Draw Fee 11:31:07 MATERIAL CHECKER CPT-40019 TPSA - LAB USE ONLY 11:31:07 MATERIAL CHECKER CPT-72121 PT/INR - LAB USE ONLY 11:31:07 MATERIAL CHECKER CPT-G0439 [facility] Annual Wellness Exam 09:59:29 MATERIAL CHECKER CPT-48046 Creatinine - LAB USE ONLY 14:37:55 MATERIAL CHECKER CPT-91324 PT/INR - LAB USE ONLY 14:37:55 MATERIAL CHECKER CPT-49518 Venipuncture Draw Fee 14:37:55 MATERIAL CHECKER CPT-34140 LS spine comp w obliques - XRAY USE ONLY 12:59:25 MATERIAL CHECKER CPT-11797 PT/INR - LAB USE ONLY 13:49:20 CDT CPT-72025 Venipuncture Draw Fee 13:49:19 CDT CPT-69165 PT/INR - LAB USE ONLY 15:48:49 CDT CPT-21457 Venipuncture Draw Fee 15:48:49 CDT CPT-23546 Venipuncture Draw Fee 11:31:59 CDT CPT-92445 PT/INR - LAB USE ONLY 11:31:59 CDT CPT-08106 Venipuncture Draw Fee 13:29:15 CDT CPT-59688 Thoracolumbar AP/Lat 15:19:19 MATERIAL CHECKER CPT-G0438 Initial Annual Wellness Exam 12:18:54 MATERIAL CHECKER CPT-33335 Knee 3V 09:57:38 CDT CPT-OV Office Visit 15:45:01 MATERIAL CHECKER CPT-78993 Abd compl w upright 17:10:25 CDT
--- OUTSIDE RECORDS SUMMARY | 2018-07-18 08:56 | XMS REPORT | Clinical Summary ---
Author Author Admin, Isidra Organization [facility] Address Unknown Phone Unavailable Allergies, Adverse Reactions, [...] Coronary atherosclerosis of unspecified type of vessel, [place] or graft Back pain, thoracic region, [...] THROMBOPHLEBITIS, LEG, 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 Inactive Sirisha Chen TEST DESK TROUBLE LOCATOR Seborrheic keratosis ICD-702.19 Inactive Sirisha Chen TEST DESK TROUBLE LOCATOR Bronchitis-Acute ICD-466.0 Inactive Piotr Daley DO Leg pain, right ICD-729.5 Inactive Sirisha Chen TEST DESK TROUBLE LOCATOR Right leg pain ICD-729.5 Inactive Sirisha Chen TEST DESK TROUBLE LOCATOR Bronchitis-Acute ICD-466.0 Inactive Sirisha Chen TEST DESK TROUBLE LOCATOR Knee pain, left ICD-719.46 Inactive Sirisha Chen TEST DESK TROUBLE LOCATOR Actinic keratoses ICD-702.0 Inactive Sirisha Chen TEST DESK TROUBLE LOCATOR Back pain, thoracic region, left ICD-724.1 Inactive Piotr Daley DO Thoracic back pain ICD-724.5 Inactive Sirisha Chen TEST DESK TROUBLE LOCATOR Back pain lumbar ICD-724.2 Inactive Sirisha Chen TEST DESK TROUBLE LOCATOR Insect bite ICD-919.4 Inactive Sirisha Chen TEST DESK TROUBLE LOCATOR Pruritus ICD-698.9 Inactive Sirisha Chen TEST DESK TROUBLE LOCATOR 04/09 Bronchitis-Acute ICD-466.0 Inactive Sirisha Chen TEST DESK TROUBLE LOCATOR Dyspnea ICD-786.09 Inactive Sirisha Chen TEST DESK TROUBLE LOCATOR 05/09 Pes anserinus bursitis, right ICD-726.61 Inactive Piotr Daley DO Medication List Medication Instructions Start Date Stop Date Generic Name NDC Status Provider Patient Instruction TRIAMCINOLONE ACETONIDE 0.1 % EXTERNAL CREAM apply bid sparingly to rash 2017 TRIAMCINOLONE ACETONIDE 79466896208 No Longer Active Piotr Daley DO Active NYSTATIN 357044 UNIT/GM EXTERNAL CREAM Apply to rash 2-3 times a day and may repeat as needed NYSTATIN 33089389327 No Longer Active Piotr Daley DO Active WARFARIN SODIUM 4 MG ORAL TABLET 1 tablet by mouth daily WARFARIN SODIUM 65237964995 Active Sirisha Chen LPN Active MELOXICAM 15 MG ORAL TABLET 1 po q day for pain with food MELOXICAM 79001313459 Active Piotr Daley DO Active PREDNISONE 10 MG ORAL TABLET 1 tablet by mouth daily PREDNISONE 60705158929 No Longer Active Emelyn Norris Active TESSALON PERLES 100 MG ORAL CAPSULE 1-2 tablet by mouth 3 times daily 04/16 BENZONATATE 36237006635 No Longer Active Emelyn Norris Active PREDNISONE 20 MG ORAL TABLET two tabs by mouth today, then one tab by mouth days two and three PREDNISONE 13618486973 No Longer Active Piotr Daley DO Active CYCLOBENZAPRINE HCL 10 MG ORAL TABLET 1 tablet by mouth three times daily as needed for muscle spasm/pain CYCLOBENZAPRINE HCL 69925446002 Active Sirisha Chen LPN Active ZITHROMAX 250 MG ORAL TABLET Take two (2 ) tablets day one, then one (1) tablet a day for four (4) more days AZITHROMYCIN 00798772621 No Longer Active Piotr Daley DO Active PROAIR HFA 108 (90 BASE) MCG/ACT INHALATION AEROSOL SOLUTION 1-2 puffs four times a day as needed ALBUTEROL SULFATE 38016286007 No Longer Active Emelyn Norris Active DOXYCYCLINE HYCLATE 100 MG ORAL CAPSULE 1 cap by mouth BID x10 days DOXYCYCLINE HYCLATE 05961282663 No Longer Active Nella Harris APRN Active PREDNISONE 20 MG ORAL TABLET 2 tabs daily for 3 days, 1 tab daily for 3 days, 1/2 tab daily for 2 days PREDNISONE 64093048629 No Longer Active Matthew Rangel MD Active TRAMADOL HCL 50 MG ORAL TABLET 1 po tid with ES Tylenol TRAMADOL HCL 69936234587 No Longer Active Matthew Rangel MD Active GABAPENTIN 300 MG ORAL CAPSULE 1 po q hs for nerve pain GABAPENTIN 68197475895 No Longer Active Matthew Rangel MD Active PREDNISONE 20 MG ORAL TABLET 2 tablets today, then 1 tablet days 2 through 4 PREDNISONE 97267442554 No Longer Active Piotr Daley DO Active AZITHROMYCIN 250 MG ORAL TABLET 2 po qd x 1 day, then 1 po qd x 4 days 07/12 AZITHROMYCIN 73870958115 No Longer Active Piotr Daley DO Active IBUPROFEN 800 MG ORAL TABLET 1 tab every 8 hours as needed 07/12 IBUPROFEN 56175065446 No Longer Active Piotr Daley DO Active LOMOTIL 2.5-0.025 MG ORAL TABLET 1 to 2 four times a day as needed for diarrhea DIPHENOXYLATE-ATROPINE 24189451642 No Longer Active Piotr Daley DO Active WARFARIN SODIUM 4 MG ORAL TABLET 1 tab every evening WARFARIN SODIUM 51143304099 No Longer Active Piotr Daley DO Active PREDNISONE 20 MG ORAL TABLET 1 tablet twice daily for 2 days, then 1 tablet once daily for 2 days PREDNISONE 05668863002 No Longer Active Piotr Daley DO Active PROMETHAZINE HCL 25 MG ORAL TABLET 1 four times a day as needed for nausea/ vomiting PROMETHAZINE HCL 45505681861 No Longer Active Piotr Daley DO Active TUSSIONEX PENNKINETIC ER 10-8 MG/5ML ORAL SUSPENSION EXTENDED RELEASE 5ml po q12hr PRN Cough HYDROCOD POLST-CHLORPHEN POLST 43030531833 No Longer Active Piotr Daley DO Active AZITHROMYCIN 250 MG ORAL TABLET 2 po qd x 1 day, then 1 po qd x 4 days 10/13 AZITHROMYCIN 98806088922 No Longer Active Piotr Daley DO Active AZITHROMYCIN 250 MG ORAL TABLET 2 po qd x 1 day, then 1 po qd x 4 days 05/07 AZITHROMYCIN 00534121989 No Longer Active Piotr Daley DO Active LISINOPRIL-HYDROCHLOROTHIAZIDE 10-12.5 MG ORAL TABLET 1 tab by mouth daily LISINOPRIL-HYDROCHLOROTHIAZIDE 09347219971 Active Piotr Daley DO Active LISINOPRIL 10 MG ORAL TABLET 1/2-1 tab po every other day LISINOPRIL 37952311677 No Longer Active Piotr Daley DO Active VENTOLIN HFA 108 (90 Base) MCG/ACT INHALATION AEROSOL SOLUTION 2 puffs four times a day PRN cough ALBUTEROL SULFATE 58952144751 No Longer Active Piotr Daley DO Active NYSTATIN-TRIAMCINOLONE 052502-8.1 UNIT/GM-% EXTERNAL CREAM Apply to area BID NYSTATIN-TRIAMCINOLONE 93824892595 No Longer Active Alena Chavira TEST DESK TROUBLE LOCATOR Active PHISOHEX 3 % LIQD Use Directed HEXACHLOROPHENE 27725710340 No Longer Active Sandra Shiloh Active AZITHROMYCIN 250 MG ORAL TABLET 2 po qd x 1 day, then 1 po qd x 4 days 10/21 AZITHROMYCIN 01841777836 No Longer Active Katrina Rinaldi MD PhD Active AZITHROMYCIN 250 MG ORAL TABLET 2 po qd x 1 day, then 1 po qd x 4 days 10/16 AZITHROMYCIN 38126754953 No Longer Active Piotr Daley DO Active AZITHROMYCIN 500 MG INTRAVENOUS SOLUTION RECONSTITUTED 1 po q day AZITHROMYCIN 19542549494 No Longer Active Piotr Daley DO Active NYSTATIN-TRIAMCINOLONE 030581-1.1 UNIT/GM-% EXTERNAL CREAM apply bid NYSTATIN-TRIAMCINOLONE 42139850325 No Longer Active Piotr Daley DO Active IBUPROFEN 800 MG ORAL TABLET 1 po q 8 hours prn pain sparinly IBUPROFEN 80608962251 No Longer Active Piotr Daley DO Active VITAMIN D3 5000 UNIT ORAL CAPSULE 1 po daily CHOLECALCIFEROL 89532051902 Active Piotr Daley DO Active IBUPROFEN 800 MG ORAL TABLET 1 po q 8 hours prn pain sparinly IBUPROFEN 800 MG ORAL TABLET 176351 IBUPROFEN Inactive NYSTATIN-TRIAMCINOLONE 851316-0.1 UNIT/GM-% EXTERNAL CREAM apply bid NYSTATIN-TRIAMCINOLONE 719456-9.1 UNIT/GM-% EXTERNAL CREAM 3513245 NYSTATIN-TRIAMCINOLONE Inactive AZITHROMYCIN 500 MG INTRAVENOUS SOLUTION RECONSTITUTED 1 po q day AZITHROMYCIN 500 MG INTRAVENOUS SOLUTION RECONSTITUTED 05362183524 AZITHROMYCIN Inactive VENTOLIN HFA 108 (90 Base) MCG/ACT INHALATION AEROSOL SOLUTION 2 puffs four times a day PRN cough VENTOLIN HFA 108 (90 Base) MCG/ ACT INHALATION AEROSOL SOLUTION ALBUTEROL SULFATE Inactive LISINOPRIL 10 MG ORAL TABLET 1/2-1 tab po every other day LISINOPRIL 10 MG ORAL TABLET 834297 LISINOPRIL Inactive TUSSIONEX PENNKINETIC ER 10-8 MG/5ML ORAL SUSPENSION EXTENDED RELEASE 5ml po q12hr PRN Cough TUSSIONEX PENNKINETIC ER 10-8 MG/5ML ORAL SUSPENSION EXTENDED RELEASE HYDROCOD POLST-CHLORPHEN POLST Inactive PROMETHAZINE HCL 25 MG ORAL TABLET 1 four times a day as needed for nausea/ vomiting PROMETHAZINE HCL 25 MG ORAL TABLET 424582 PROMETHAZINE HCL Inactive PREDNISONE 20 MG ORAL TABLET 1 tablet twice daily for 2 days, then 1 tablet once daily for 2 days PREDNISONE 20 MG ORAL TABLET 671877 PREDNISONE Inactive WARFARIN SODIUM 4 MG ORAL TABLET 1 tab every evening WARFARIN SODIUM 4 MG ORAL TABLET 288958 WARFARIN SODIUM Inactive LOMOTIL 2.5-0.025 MG ORAL TABLET 1 to 2 four times a day as needed for diarrhea LOMOTIL 2.5-0.025 MG ORAL TABLET 3674695 DIPHENOXYLATE-ATROPINE Inactive IBUPROFEN 800 MG ORAL TABLET 1 tab every 8 hours as needed 07/12 IBUPROFEN 800 MG ORAL TABLET 526689 IBUPROFEN Inactive PREDNISONE 20 MG ORAL TABLET 2 tablets today, then 1 tablet days 2 through 4 PREDNISONE 20 MG ORAL TABLET 158513 PREDNISONE Inactive GABAPENTIN 300 MG ORAL CAPSULE 1 po q hs for nerve pain GABAPENTIN 300 MG ORAL CAPSULE 021430 GABAPENTIN Inactive TRAMADOL HCL 50 MG ORAL TABLET 1 po tid with ES Tylenol TRAMADOL HCL 50 MG ORAL TABLET 436861 TRAMADOL HCL Inactive PROAIR HFA 108 (90 BASE) MCG/ACT INHALATION AEROSOL SOLUTION 1-2 puffs four times a day as needed PROAIR HFA 108 (90 BASE) MCG/ACT INHALATION AEROSOL SOLUTION ALBUTEROL SULFATE Inactive PREDNISONE 20 MG ORAL TABLET two tabs by mouth today, then one tab by mouth days two and three PREDNISONE 20 MG ORAL TABLET 579111 PREDNISONE Inactive TESSALON PERLES 100 MG ORAL CAPSULE 1-2 tablet by mouth 3 times daily 04/16 TESSALON PERLES 100 MG ORAL CAPSULE 418447 BENZONATATE Inactive PREDNISONE 10 MG ORAL TABLET 1 tablet by mouth daily PREDNISONE 10 MG ORAL TABLET 440710 PREDNISONE Inactive NYSTATIN 977778 UNIT/GM EXTERNAL CREAM Apply to rash 2-3 times a day and may repeat as needed NYSTATIN 385988 UNIT/GM EXTERNAL CREAM 667511 NYSTATIN Inactive TRIAMCINOLONE ACETONIDE 0.1 % EXTERNAL CREAM apply bid sparingly to rash 2017 TRIAMCINOLONE ACETONIDE 0.1 % EXTERNAL CREAM 3561897 TRIAMCINOLONE ACETONIDE Inactive AZITHROMYCIN 250 MG ORAL TABLET 2 po qd x 1 day, then 1 po qd x 4 days 10/16 AZITHROMYCIN 250 MG ORAL TABLET 715845 AZITHROMYCIN Inactive AZITHROMYCIN 250 MG ORAL TABLET 2 po qd x 1 day, then 1 po qd x 4 days 10/21 AZITHROMYCIN 250 MG ORAL TABLET 026788 AZITHROMYCIN Inactive NYSTATIN-TRIAMCINOLONE 270772-4.1 UNIT/GM-% EXTERNAL CREAM Apply to area BID NYSTATIN-TRIAMCINOLONE 387916-2.1 UNIT/GM-% EXTERNAL CREAM 8929352 NYSTATIN-TRIAMCINOLONE Inactive AZITHROMYCIN 250 MG ORAL TABLET 2 po qd x 1 day, then 1 po qd x 4 days 05/07 AZITHROMYCIN 250 MG ORAL TABLET 799819 AZITHROMYCIN Inactive AZITHROMYCIN 250 MG ORAL TABLET 2 po qd x 1 day, then 1 po qd x 4 days 10/13 AZITHROMYCIN 250 MG ORAL TABLET 485516 AZITHROMYCIN Inactive AZITHROMYCIN 250 MG ORAL TABLET 2 po qd x 1 day, then 1 po qd x 4 days 07/12 AZITHROMYCIN 250 MG ORAL TABLET 981988 AZITHROMYCIN Inactive PREDNISONE 20 MG ORAL TABLET 2 tabs daily for 3 days, 1 tab daily for 3 days, 1/2 tab daily for 2 days PREDNISONE 20 MG ORAL TABLET 781959 PREDNISONE Inactive DOXYCYCLINE HYCLATE 100 MG ORAL CAPSULE 1 cap by mouth BID x10 days DOXYCYCLINE HYCLATE 100 MG ORAL CAPSULE 9731884 DOXYCYCLINE HYCLATE Inactive ZITHROMAX 250 MG ORAL TABLET Take two (2 ) tablets day one, then one (1) tablet a day for four (4) more days ZITHROMAX 250 MG ORAL TABLET 554048 AZITHROMYCIN Inactive Advance Directives Directive Description Start [...] Ag - Chemistry sodium, serum 141 mmol/L 815-660 2264/12/17 carbon dioxide, venous blood 30.9 mmol/L 21.0-32.0 [...] 50-136 Encounters Code Encounter Date Provider Facility CPT-34849 [id number] Vst-Est Level IV 08:51:04 URGENT CARE TECHNICIAN Piotr Daley DO [facility] CPT-70007 [id number] Vst-Est Level III 14:29:05 CDT Piotr W [facility] CPT-58833 Level 3 Est. Patient 15:59:25 URGENT CARE TECHNICIAN Piotr Daley [facility] CPT-00691 Level 3 Est. Patient 12:33:59 URGENT CARE TECHNICIAN Piotr Daley [facility] CPT-67074 Level 3 Est. Patient 15:56:17 URGENT CARE TECHNICIAN Piotr Daley [facility] CPT-15303 Level 3 Est. Patient 10:34:54 URGENT CARE TECHNICIAN Piotr Daley [facility] CPT-47536 Level 3 Est. Patient 17:10:19 CDT Nella Harris APRN [facility] CPT-05485 Level 3 Est. Patient 10:48:17 URGENT CARE TECHNICIAN Matthew Rangel MD [facility] CPT-98871 Level 4 Est. Patient 17:15:07 URGENT CARE TECHNICIAN Piotr Daley [facility] CPT-65714 Level 3 Est. Patient 12:46:13 URGENT CARE TECHNICIAN Piotr Daley [facility] CPT-79733 Level 3 Est. Patient 15:14:31 URGENT CARE TECHNICIAN Piotr Daley [facility] CPT-32710 Level 3 Est. Patient 09:20:13 URGENT CARE TECHNICIAN Piotr Daley [facility] CPT-94065 Level 3 Est. Patient 09:49:40 CDT Piotr Daley [facility] CPT-19679 Level 3 Est. Patient 16:28:11 CDT Piotr Daley [facility] CPT-39322 Level 3 Est. Patient 12:41:58 URGENT CARE TECHNICIAN Piotr Daley [facility] CPT-62427 Level 3 Est. Patient 09:21:24 CDT Piotr Katie [facility] CPT-82395 Level 3 Est. Patient 09:21:11 CDT Piotr Katie [facility] CPT-84768 Level 3 Est. Patient 11:16:29 URGENT CARE TECHNICIAN Piotr Wilson [facility] CPT-20436 Level 3 Est. Patient 18:40:19 URGENT CARE TECHNICIAN Piotr Daley [facility] CPT-96939 Level 3 Est. Patient 19:30:50 CDT Piotr Daley [facility] CPT-16669 Level 3 Est. Patient 22:06:44 CDT Katrina Rinaldi MD [facility] CPT-78613 Level 3 Est. Patient 14:20:00 CDT Piotr Daley [facility] CPT-39809 Level 3 Est. Patient 14:15:22 URGENT CARE TECHNICIAN Piotr Daley [facility] CPT-59609 Level 3 Est. Patient 20:19:57 URGENT CARE TECHNICIAN Piotr Daley [facility] CPT-36758 Level 3 Est. Patient 16:44:32 CDT Piotr Daley [facility] CPT-35233 Level 3 Est. Patient 08:48:46 URGENT CARE TECHNICIAN Piotr Daley [facility] CPT-60028 Level 3 Est. Patient 21:01:21 CDT Piotr Wilson [facility] Procedures Code Procedure Name Date Entry Date Standard Description CPT-Cryo Cryotherapy 08:51:04 URGENT CARE TECHNICIAN CPT-G0439 Subsequent Annual Wellness Exam 08:51:04 URGENT CARE TECHNICIAN CPT-96046 Sacroiliac jt < 3V - XRAY USE ONLY 16:45:19 URGENT CARE TECHNICIAN 05/09 CPT-45564 LS spine comp w obliques - XRAY USE ONLY 14:52:26 URGENT CARE TECHNICIAN CPT-36679 Chest, 2 views 12:55:58 URGENT CARE TECHNICIAN CPT-G0439 Subsequent Annual Wellness Exam 10:34:52 URGENT CARE TECHNICIAN CPT-05542 BMP - LAB USE ONLY 17:19:11 URGENT CARE TECHNICIAN CPT-94926 PT/INR - LAB USE ONLY 17:19:10 URGENT CARE TECHNICIAN CPT-58549 Venipuncture Draw Fee 17:19:10 URGENT CARE TECHNICIAN CPT-54512 PT/INR - LAB USE ONLY 08:12:25 URGENT CARE TECHNICIAN CPT-14141 Venipuncture Draw Fee 08:12:24 URGENT CARE TECHNICIAN CPT-68137 Venipuncture Draw Fee 11:31:07 URGENT CARE TECHNICIAN CPT-99080 TPSA - LAB USE ONLY 11:31:07 URGENT CARE TECHNICIAN CPT-38480 PT/INR - LAB USE ONLY 11:31:07 URGENT CARE TECHNICIAN CPT-G0439 [facility] Annual Wellness Exam 09:59:29 URGENT CARE TECHNICIAN CPT-43339 Creatinine - LAB USE ONLY 14:37:55 URGENT CARE TECHNICIAN CPT-92443 PT/INR - LAB USE ONLY 14:37:55 URGENT CARE TECHNICIAN CPT-43381 Venipuncture Draw Fee 14:37:55 URGENT CARE TECHNICIAN CPT-67033 LS spine comp w obliques - XRAY USE ONLY 12:59:25 URGENT CARE TECHNICIAN CPT-46917 PT/INR - LAB USE ONLY 13:49:20 CDT CPT-91000 Venipuncture Draw Fee 13:49:19 CDT CPT-11931 PT/INR - LAB USE ONLY 15:48:49 CDT CPT-61467 Venipuncture Draw Fee 15:48:49 CDT CPT-13038 Venipuncture Draw Fee 11:31:59 CDT CPT-09390 PT/INR - LAB USE ONLY 11:31:59 CDT CPT-59090 Venipuncture Draw Fee 13:29:15 CDT CPT-92382 Thoracolumbar AP/Lat 15:19:19 URGENT CARE TECHNICIAN CPT-G0438 Initial Annual Wellness Exam 12:18:54 URGENT CARE TECHNICIAN CPT-68629 Knee 3V 09:57:38 CDT CPT-OV Office Visit 15:45:01 URGENT CARE TECHNICIAN CPT-42908 Abd compl w upright 17:10:25 CDT
--- OUTSIDE RECORDS SUMMARY | 2018-07-18 08:57 | XMS REPORT | Clinical Summary ---
Author Author Admin, Is[facility] [employer] Address Unknown Phone Unavailable Allergies, Adverse Reactions, [...] Coronary atherosclerosis of unspecified type of vessel, reno-sparks or graft Back pain, thoracic region, left 724.1 Inactive Piotr Katie Edi DO Pain in thoracic spine Thoracic back pain 724.5 Resolved Ipotr Katie Edi DO Backache, unspecified Back [...] care facility Bronchitis-Acute 466.0 Resolved Emelyn Goode [facility] Acute bronchitis Dyspnea 786.09 Resolved Emelyn Goode [facility] Other dyspnea and respiratory abnormality Sacroiliitis, right 720.2 Active Emelyn Goode [facility] Sacroiliitis, not elsewhere classified Pes anserinus bursitis, right 726.61 Inactive Piotr Daley DO Pes anserinus tendinitis or bursitis Body Mass Index 30.0-30.9 Adult Active Piotr Daley DO Body Mass Index 30.0-30.9, adult Obesity Class I (BMI 30-34.9) Active Piotr Daley DO Obesity, unspecified HEALTH MAINTENANCE EXAM ICD-V70.0 Inactive Katrina Rinaldi MD PhD BRONCHITIS-ACUTE ICD-466.0 Inactive Piotr Daley DO SCREENING, COLON CANCER ICD-V76.51 Inactive Katrina Rinaldi MD PhD BRONCHITIS-ACUTE ICD-466.0 Inactive Piotr Daley DO FLANK PAIN, RIGHT ICD-789.09 Inactive Katrina Rinaldi MD PhD Seborrheic keratosis ICD-702.19 Inactive Sirisha Chen LPN Bronchitis-Acute ICD-466.0 Inactive Piotr Daley DO Leg pain, right ICD-729.5 Inactive Sirisha Chen LPN Right leg pain ICD-729.5 Inactive Sirisha Chen LPN Bronchitis-Acute ICD-466.0 Inactive Sirisha Chen WAFER FABRICATION TECHNICIAN Knee pain, left ICD-719.46 Inactive Sirisha Chen WAFER FABRICATION TECHNICIAN Actinic keratoses ICD-702.0 Inactive Sirisha Chen WAFER FABRICATION TECHNICIAN Back pain, thoracic region, left ICD-724.1 Inactive Piotr Daley DO Thoracic back pain ICD-724.5 Inactive Sirisha Chen WAFER FABRICATION TECHNICIAN Back pain lumbar ICD-724.2 Inactive Sirisha Chen WAFER FABRICATION TECHNICIAN Insect bite ICD-919.4 Inactive Sirisha Chen WAFER FABRICATION TECHNICIAN Pruritus ICD-698.9 Inactive Sirisha Chen WAFER FABRICATION TECHNICIAN 04/09 Bronchitis-Acute ICD-466.0 Inactive Sirisha Chen WAFER FABRICATION TECHNICIAN Dyspnea ICD-786.09 Inactive Sirisha Chen WAFER FABRICATION TECHNICIAN 05/09 Pes anserinus bursitis, right ICD-726.61 Inactive Piotr Daley DO DEEP VENOUS THROMBOPHLEBITIS, LEG, 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 Inactive Sirisha Chen WAFER FABRICATION TECHNICIAN DEEP VENOUS THROMBOPHLEBITIS, LEG, 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 Inactive Sirisha Chen WAFER FABRICATION TECHNICIAN Medication List Medication Instructions Start Date Stop Date Generic Name NDC Status Provider Patient Instruction TRIAMCINOLONE ACETONIDE 0.1 % EXTERNAL CREAM apply bid sparingly to rash 2017 TRIAMCINOLONE ACETONIDE 70023495363 No Longer Active Piotr Daley DO Active NYSTATIN 352813 UNIT/GM EXTERNAL CREAM Apply to rash 2-3 times a day and may repeat as needed NYSTATIN 51064713998 No Longer Active Piotr Daley DO Active WARFARIN SODIUM 4 MG ORAL TABLET 1 tablet by mouth daily WARFARIN SODIUM 26894847111 Active Sirisha Chen LPN Active MELOXICAM 15 MG ORAL TABLET 1 po q day for pain with food MELOXICAM 97724153969 Active Piotr Daley DO Active PREDNISONE 10 MG ORAL TABLET 1 tablet by mouth daily PREDNISONE 67875039794 No Longer Active Emelyn Norris Active TESSALON PERLES 100 MG ORAL CAPSULE 1-2 tablet by mouth 3 times daily 04/16 BENZONATATE 97249026074 No Longer Active Emelyn Norris Active PREDNISONE 20 MG ORAL TABLET two tabs by mouth today, then one tab by mouth days two and three PREDNISONE 75231243653 No Longer Active Piotr Daley DO Active CYCLOBENZAPRINE HCL 10 MG ORAL TABLET 1 tablet by mouth three times daily as needed for muscle spasm/pain CYCLOBENZAPRINE HCL 57010305636 Active Sirisha Chen LPN Active ZITHROMAX 250 MG ORAL TABLET Take two (2 ) tablets day one, then one (1) tablet a day for four (4) more days AZITHROMYCIN 70382646560 No Longer Active Piotr Daley DO Active PROAIR HFA 108 (90 BASE) MCG/ACT INHALATION AEROSOL SOLUTION 1-2 puffs four times a day as needed ALBUTEROL SULFATE 83606000983 No Longer Active Emelyn Norris Active DOXYCYCLINE HYCLATE 100 MG ORAL CAPSULE 1 cap by mouth BID x10 days DOXYCYCLINE HYCLATE 27559536006 No Longer Active Nella Harris APRN Active PREDNISONE 20 MG ORAL TABLET 2 tabs daily for 3 days, 1 tab daily for 3 days, 1/2 tab daily for 2 days PREDNISONE 25069121320 No Longer Active Matthew Rangel MD Active TRAMADOL HCL 50 MG ORAL TABLET 1 po tid with ES Tylenol TRAMADOL HCL 04896936469 No Longer Active Matthew Rangel MD Active GABAPENTIN 300 MG ORAL CAPSULE 1 po q hs for nerve pain GABAPENTIN 97993659292 No Longer Active Matthew Rangel MD Active PREDNISONE 20 MG ORAL TABLET 2 tablets today, then 1 tablet days 2 through 4 PREDNISONE 50629039301 No Longer Active Piotr Daley DO Active AZITHROMYCIN 250 MG ORAL TABLET 2 po qd x 1 day, then 1 po qd x 4 days 07/12 AZITHROMYCIN 15609459562 No Longer Active Piotr Daley DO Active IBUPROFEN 800 MG ORAL TABLET 1 tab every 8 hours as needed 07/12 IBUPROFEN 78575204329 No Longer Active Piotr Daley DO Active LOMOTIL 2.5-0.025 MG ORAL TABLET 1 to 2 four times a day as needed for diarrhea DIPHENOXYLATE-ATROPINE 28180660848 No Longer Active Piotr Daley DO Active WARFARIN SODIUM 4 MG ORAL TABLET 1 tab every evening WARFARIN SODIUM 42839649570 No Longer Active Piotr Daley DO Active PREDNISONE 20 MG ORAL TABLET 1 tablet twice daily for 2 days, then 1 tablet once daily for 2 days PREDNISONE 03146051464 No Longer Active Piotr Daley DO Active PROMETHAZINE HCL 25 MG ORAL TABLET 1 four times a day as needed for nausea/ vomiting PROMETHAZINE HCL 09700563859 No Longer Active Piotr Daley DO Active TUSSIONEX PENNKINETIC ER 10-8 MG/5ML ORAL SUSPENSION EXTENDED RELEASE 5ml po q12hr PRN Cough HYDROCOD POLST-CHLORPHEN POLST 42426598817 No Longer Active Piotr Daley DO Active AZITHROMYCIN 250 MG ORAL TABLET 2 po qd x 1 day, then 1 po qd x 4 days 10/13 AZITHROMYCIN 16754826399 No Longer Active Pitor Daley DO Active AZITHROMYCIN 250 MG ORAL TABLET 2 po qd x 1 day, then 1 po qd x 4 days 05/07 AZITHROMYCIN 97813918684 No Longer Active Piotr W Edi DO Active LISINOPRIL-HYDROCHLOROTHIAZIDE 10-12.5 MG ORAL TABLET 1 tab by mouth daily LISINOPRIL-HYDROCHLOROTHIAZIDE 54081688512 Active Piotr Daley DO Active LISINOPRIL 10 MG ORAL TABLET 1/2-1 tab po every other day LISINOPRIL 17810102525 No Longer Active Piotr Daley DO Active VENTOLIN HFA 108 (90 Base) MCG/ACT INHALATION AEROSOL SOLUTION 2 puffs four times a day PRN cough ALBUTEROL SULFATE 91085103332 No Longer Active Piotr Daley DO Active NYSTATIN-TRIAMCINOLONE 255317-2.1 UNIT/GM-% EXTERNAL CREAM Apply to area BID NYSTATIN-TRIAMCINOLONE 50691076670 No Longer Active Alena Chavira WAFER FABRICATION TECHNICIAN Active PHISOHEX 3 % LIQD Use Directed HEXACHLOROPHENE 09430281473 No Longer Active Sandra Salinas Active AZITHROMYCIN 250 MG ORAL TABLET 2 po qd x 1 day, then 1 po qd x 4 days 10/21 AZITHROMYCIN 34592368242 No Longer Active Katrina Rinaldi MD PhD Active AZITHROMYCIN 250 MG ORAL TABLET 2 po qd x 1 day, then 1 po qd x 4 days 10/16 AZITHROMYCIN 48024606882 No Longer Active Piotr Daley DO Active AZITHROMYCIN 500 MG INTRAVENOUS SOLUTION RECONSTITUTED 1 po q day AZITHROMYCIN 94663513859 No Longer Active Piotr Daley DO Active NYSTATIN-TRIAMCINOLONE 178444-5.1 UNIT/GM-% EXTERNAL CREAM apply bid NYSTATIN-TRIAMCINOLONE 83651652351 No Longer Active Pitor Daley DO Active IBUPROFEN 800 MG ORAL TABLET 1 po q 8 hours prn pain sparinly IBUPROFEN 48286166491 No Longer Active Piotr Daley DO Active VITAMIN D3 5000 UNIT ORAL CAPSULE 1 po daily CHOLECALCIFEROL 31983252563 Active Piotr Daley DO Active IBUPROFEN 800 MG ORAL TABLET 1 po q 8 hours prn pain sparinly IBUPROFEN 800 MG ORAL TABLET 820560 IBUPROFEN Inactive NYSTATIN-TRIAMCINOLONE 606842-6.1 UNIT/GM-% EXTERNAL CREAM apply bid NYSTATIN-TRIAMCINOLONE 625918-2.1 UNIT/GM-% EXTERNAL CREAM 7652689 NYSTATIN-TRIAMCINOLONE Inactive AZITHROMYCIN 500 MG INTRAVENOUS SOLUTION RECONSTITUTED 1 po q day AZITHROMYCIN 500 MG INTRAVENOUS SOLUTION RECONSTITUTED 63506722619 AZITHROMYCIN Inactive VENTOLIN HFA 108 (90 Base) [...] vomiting PROMETHAZINE HCL 25 MG ORAL TABLET 333937 PROMETHAZINE HCL Inactive PREDNISONE 20 MG ORAL TABLET 1 tablet twice daily for 2 days, then 1 tablet once daily for 2 days PREDNISONE 20 MG ORAL TABLET 722221 PREDNISONE Inactive WARFARIN SODIUM 4 MG ORAL TABLET 1 tab every evening WARFARIN SODIUM 4 MG ORAL TABLET 654092 WARFARIN SODIUM Inactive LOMOTIL 2.5-0.025 MG ORAL TABLET 1 to 2 four times a day as needed for diarrhea LOMOTIL 2.5-0.025 MG ORAL TABLET 1373437 DIPHENOXYLATE-ATROPINE Inactive IBUPROFEN 800 MG ORAL TABLET 1 tab every 8 hours as needed 07/12 IBUPROFEN 800 MG ORAL TABLET 591777 IBUPROFEN Inactive PREDNISONE 20 MG ORAL TABLET 2 tablets today, then 1 tablet days 2 through 4 PREDNISONE 20 MG ORAL TABLET 266800 PREDNISONE Inactive GABAPENTIN 300 MG ORAL CAPSULE 1 po q hs for nerve pain GABAPENTIN 300 MG ORAL CAPSULE 100868 GABAPENTIN Inactive TRAMADOL HCL 50 MG ORAL TABLET 1 po tid with ES Tylenol TRAMADOL HCL 50 MG ORAL TABLET 578260 TRAMADOL HCL Inactive PROAIR HFA 108 (90 BASE) MCG/ACT INHALATION AEROSOL SOLUTION 1-2 puffs four times a day as needed PROAIR HFA 108 (90 BASE) MCG/ACT INHALATION AEROSOL SOLUTION ALBUTEROL SULFATE Inactive PREDNISONE 20 MG ORAL TABLET two tabs by mouth today, then one tab by mouth days two and three PREDNISONE 20 MG ORAL TABLET 174803 PREDNISONE Inactive TESSALON PERLES 100 MG ORAL CAPSULE 1-2 tablet by mouth 3 times daily 04/16 TESSALON PERLES 100 MG ORAL CAPSULE 953756 BENZONATATE Inactive PREDNISONE 10 MG ORAL TABLET 1 tablet by mouth daily PREDNISONE 10 MG ORAL TABLET 521094 PREDNISONE Inactive NYSTATIN 235151 UNIT/GM EXTERNAL CREAM Apply to rash 2-3 times a day and may repeat as needed NYSTATIN 751459 UNIT/GM EXTERNAL CREAM 530588 NYSTATIN Inactive TRIAMCINOLONE ACETONIDE 0.1 % EXTERNAL CREAM apply bid sparingly to rash 2017 TRIAMCINOLONE ACETONIDE 0.1 % EXTERNAL CREAM 6021203 TRIAMCINOLONE ACETONIDE Inactive AZITHROMYCIN 250 MG ORAL TABLET 2 po qd x 1 day, then 1 po qd x 4 days 10/16 AZITHROMYCIN 250 MG ORAL TABLET 037867 AZITHROMYCIN Inactive AZITHROMYCIN 250 MG ORAL TABLET 2 po qd x 1 day, then 1 po qd x 4 days 10/21 AZITHROMYCIN 250 MG ORAL TABLET 395822 AZITHROMYCIN Inactive NYSTATIN-TRIAMCINOLONE 421175-1.1 UNIT/GM-% EXTERNAL CREAM Apply to area BID NYSTATIN-TRIAMCINOLONE 914364-5.1 UNIT/GM-% EXTERNAL CREAM 9381209 NYSTATIN-TRIAMCINOLONE Inactive AZITHROMYCIN 250 MG ORAL TABLET 2 po qd x 1 day, then 1 po qd x 4 days 05/07 AZITHROMYCIN 250 MG ORAL TABLET 819604 AZITHROMYCIN Inactive AZITHROMYCIN 250 MG ORAL TABLET 2 po qd x 1 day, then 1 po qd x 4 days 10/13 AZITHROMYCIN 250 MG ORAL TABLET 330110 AZITHROMYCIN Inactive AZITHROMYCIN 250 MG ORAL TABLET 2 po qd x 1 day, then 1 po qd x 4 days 07/12 AZITHROMYCIN 250 MG ORAL TABLET 241900 AZITHROMYCIN Inactive PREDNISONE 20 MG ORAL TABLET 2 tabs daily for 3 days, 1 tab daily for 3 days, 1/2 tab daily for 2 days PREDNISONE 20 MG ORAL TABLET 183319 PREDNISONE Inactive DOXYCYCLINE HYCLATE 100 MG ORAL CAPSULE 1 cap by mouth BID x10 days DOXYCYCLINE HYCLATE 100 MG ORAL CAPSULE 4836581 DOXYCYCLINE HYCLATE Inactive ZITHROMAX 250 MG ORAL TABLET Take two (2 ) tablets day one, then one (1) tablet a day for four (4) more days ZITHROMAX 250 MG ORAL TABLET 055016 AZITHROMYCIN Inactive Advance Directives Directive Description Start Date LIVING WILL LIVING WILL Vital Signs Date Name Value Unit Range Description blood pressure, diastolic 69 mm[Hg] BP phan [...] Ag - Chemistry sodium, serum 141 mmol/L 689-834 7902/12/17 carbon dioxide, venous blood 30.9 mmol/L 21.0-32.0 [...] 50-136 Encounters Code Encounter Date Provider Facility CPT-31489 [id number] Vst-Est Level III 14:29:05 CDT Piotr Daley [facility] CPT-83847 Level 3 Est. Patient 15:59:25 [facility] Piotr Daley [facility] CPT-92579 Level 3 Est. Patient 12:33:59 [facility] Piotr Daley [facility] CPT-21389 Level 3 Est. Patient 15:56:17 [facility] Piotr Daley [facility] CPT-31190 Level 3 Est. Patient 10:34:54 [facility] Piotr Daley [facility] CPT-78269 Level 3 Est. Patient 17:10:19 CDT Nella Harris APRN [facility] CPT-63516 Level 3 Est. Patient 10:48:17 [facility] Matthew Rangel MD [facility] CPT-67837 Level 4 Est. Patient 17:15:07 [facility] Piotr Daley [facility] CPT-94005 Level 3 Est. Patient 12:46:13 [facility] Piotr Daley [facility] CPT-71890 Level 3 Est. Patient 15:14:31 [facility] Piotr Daley [facility] CPT-16948 Level 3 Est. Patient 09:20:13 [facility] Piotr Daley [facility] CPT-99427 Level 3 Est. Patient 09:49:40 CDT Piotr Daley [facility] CPT-76619 Level 3 Est. Patient 16:28:11 CDT Piotr Daley [facility] CPT-99698 Level 3 Est. Patient 12:41:58 [facility] Piotr Wilson Edi [facility] CPT-65189 Level 3 Est. Patient 09:21:24 CDT Piotr Daley [facility] CPT-28654 Level 3 Est. Patient 09:21:11 CDT Piotr Daley [facility] CPT-46266 Level 3 Est. Patient 11:16:29 [facility] Piotr Daley [facility] CPT-53102 Level 3 Est. Patient 18:40:19 [facility] Piotr Daley [facility] CPT-22291 Level 3 Est. Patient 19:30:50 CDT Piotr Daley [facility] CPT-39134 Level 3 Est. Patient 22:06:44 CDT Katrina Rinaldi MD PhD [facility] CPT-69670 Level 3 Est. Patient 14:20:00 CDT Piotr Wilson Edi [facility] CPT-93230 Level 3 Est. Patient 14:15:22 [facility] Piotr Daley [facility] CPT-37634 Level 3 Est. Patient 20:19:57 [facility] Piotr Wilson Edi [facility] CPT-86601 Level 3 Est. Patient 16:44:32 CDT Piotr Daley [facility] CPT-72388 Level 3 Est. Patient 08:48:46 [facility] Piotr Wilson Edi [facility] CPT-57785 Level 3 Est. Patient 21:01:21 CDT Piotr Katie Daley [facility] Procedures Code Procedure Name Date Entry Date Standard Description CPT-30435 Sacroiliac jt < 3V - XRAY USE ONLY 16:45:19 [facility] 05/09 CPT-30301 LS spine comp w obliques - XRAY USE ONLY 14:52:26 [facility] CPT-53301 Chest, 2 views 12:55:58 [facility] CPT-G0439 Subsequent Annual Wellness Exam 10:34:52 [facility] CPT-61218 BMP - LAB USE ONLY 17:19:11 [facility] CPT-31218 PT/INR - LAB USE ONLY 17:19:10 [facility] CPT-52178 Venipuncture Draw Fee 17:19:10 [facility] CPT-29010 PT/INR - LAB USE ONLY 08:12:25 [facility] CPT-14421 Venipuncture Draw Fee 08:12:24 [facility] CPT-28834 Venipuncture Draw Fee 11:31:07 [facility] CPT-42385 TPSA - LAB USE ONLY 11:31:07 [facility] CPT-07150 PT/INR - LAB USE ONLY 11:31:07 [facility] CPT-G0439 Subsequent Annual Wellness Exam 09:59:29 [facility] CPT-33801 Creatinine - LAB USE ONLY 14:37:55 [facility] CPT-76045 PT/INR - LAB USE ONLY 14:37:55 [facility] CPT-06429 Venipuncture Draw Fee 14:37:55 [facility] CPT-47576 LS spine comp w obliques - XRAY USE ONLY 12:59:25 [facility] CPT-27524 PT/INR - LAB USE ONLY 13:49:20 CDT CPT-00671 Venipuncture Draw Fee 13:49:19 CDT CPT-56083 PT/INR - LAB USE ONLY 15:48:49 CDT CPT-73260 Venipuncture Draw Fee 15:48:49 CDT CPT-41005 Venipuncture Draw Fee 11:31:59 CDT CPT-95466 PT/INR - LAB USE ONLY 11:31:59 CDT CPT-32829 Venipuncture Draw Fee 13:29:15 CDT CPT-83535 Thoracolumbar AP/Lat 15:19:19 [facility] CPT-G0438 Initial Annual Wellness Exam 12:18:54 [facility] CPT-27966 Knee 3V 09:57:38 CDT CPT-OV Office Visit 15:45:01 [facility] CPT-60577 Abd compl w upright 17:10:25 CDT
--- OUTSIDE RECORDS SUMMARY | 2018-07-18 08:58 | XMS REPORT | Clinical Summary ---
Author Author Admin, Bita Organization [facility] Address Unknown Phone Unavailable Allergies, Adverse Reactions, [...] neoplasms of colon BRONCHITIS-ACUTE 466.0 Inactive Piotr Daely DO Acute bronchitis Rule out DEEP VENOUS [...] Coronary atherosclerosis of unspecified type of vessel, [place] or graft Back pain, thoracic region, left [...] 30-34.9) Active Piotr Daley DO Obesity, unspecified FLANK PAIN, RIGHT ICD-789.09 Inactive Katrina [...] LPN Seborrheic keratosis ICD-702.19 Inactive Sirisha Chen LPN Bronchitis-Acute ICD-466.0 Inactive Piotr Daley DO Leg pain, right ICD-729.5 Inactive Sirisha Chen THREAD GRINDER Right leg pain ICD-729.5 Inactive Sirisha Chen THREAD GRINDER Bronchitis-Acute ICD-466.0 Inactive Sirisha Chen THREAD GRINDER Knee pain, left ICD-719.46 Inactive Sirisha Chen THREAD GRINDER Actinic keratoses ICD-702.0 Inactive Sirisha Chen THREAD GRINDER Back pain, thoracic region, left ICD-724.1 Inactive Piotr Daley DO Thoracic back pain ICD-724.5 Inactive Sirisha Chen THREAD GRINDER Back pain lumbar ICD-724.2 Inactive Sirisha Chen THREAD GRINDER Insect bite ICD-919.4 Inactive Sirisha Chen THREAD GRINDER Pruritus ICD-698.9 Inactive Sirisha Chen THREAD GRINDER 04/09 Bronchitis-Acute ICD-466.0 Inactive Sirisha Chen THREAD GRINDER Dyspnea ICD-786.09 Inactive Sirisha Chen THREAD GRINDER 05/09 Pes anserinus bursitis, right ICD-726.61 Inactive Piotr Daley DO Medication List Medication Instructions Start Date Stop Date Generic Name NDC Status Provider Patient Instruction TRIAMCINOLONE ACETONIDE 0.1 % EXTERNAL CREAM apply bid sparingly to rash 2017 TRIAMCINOLONE ACETONIDE 02431550369 No Longer Active Piotr Daley DO Active NYSTATIN 657800 UNIT/GM EXTERNAL CREAM Apply to rash 2-3 times a day and may repeat as needed NYSTATIN 23070836680 No Longer Active Piotr Daley DO Active WARFARIN SODIUM 4 MG ORAL TABLET 1 tablet by mouth daily WARFARIN SODIUM 09587272635 Active Sirisha Chen LPN Active MELOXICAM 15 MG ORAL TABLET 1 po q day for pain with food MELOXICAM 35083914794 Active Piotr Daley DO Active PREDNISONE 10 MG ORAL TABLET 1 tablet by mouth daily PREDNISONE 40386688880 No Longer Active Emelyn Norris Active TESSALON PERLES 100 MG ORAL CAPSULE 1-2 tablet by mouth 3 times daily 04/16 BENZONATATE 02176137437 No Longer Active Emelyn Norris Active PREDNISONE 20 MG ORAL TABLET two tabs by mouth today, then one tab by mouth days two and three PREDNISONE 98890541739 No Longer Active Piotr Daley DO Active CYCLOBENZAPRINE HCL 10 MG ORAL TABLET 1 tablet by mouth three times daily as needed for muscle spasm/pain CYCLOBENZAPRINE HCL 09961481473 Active Sirisha Chen LPN Active ZITHROMAX 250 MG ORAL TABLET Take two (2 ) tablets day one, then one (1) tablet a day for four (4) more days AZITHROMYCIN 45935323883 No Longer Active Piotr Daley DO Active PROAIR HFA 108 (90 BASE) MCG/ACT INHALATION AEROSOL SOLUTION 1-2 puffs four times a day as needed ALBUTEROL SULFATE 38996963871 No Longer Active Emelyn Norris Active DOXYCYCLINE HYCLATE 100 MG ORAL CAPSULE 1 cap by mouth BID x10 days DOXYCYCLINE HYCLATE 27643420081 No Longer Active Nella Harris APRN Active PREDNISONE 20 MG ORAL TABLET 2 tabs daily for 3 days, 1 tab daily for 3 days, 1/2 tab daily for 2 days PREDNISONE 22385341956 No Longer Active Matthew Rangel MD Active TRAMADOL HCL 50 MG ORAL TABLET 1 po tid with ES Tylenol TRAMADOL HCL 10754953746 No Longer Active Matthew Rangel MD Active GABAPENTIN 300 MG ORAL CAPSULE 1 po q hs for nerve pain GABAPENTIN 23422935649 No Longer Active Matthew Rangel MD Active PREDNISONE 20 MG ORAL TABLET 2 tablets today, then 1 tablet days 2 through 4 PREDNISONE 85094929247 No Longer Active Piotr Daley DO Active AZITHROMYCIN 250 MG ORAL TABLET 2 po qd x 1 day, then 1 po qd x 4 days 07/12 AZITHROMYCIN 88347131615 No Longer Active Piotr Daley DO Active IBUPROFEN 800 MG ORAL TABLET 1 tab every 8 hours as needed 07/12 IBUPROFEN 36651581061 No Longer Active Piotr Daley DO Active LOMOTIL 2.5-0.025 MG ORAL TABLET 1 to 2 four times a day as needed for diarrhea DIPHENOXYLATE-ATROPINE 84811222926 No Longer Active Piotr Daley DO Active WARFARIN SODIUM 4 MG ORAL TABLET 1 tab every evening WARFARIN SODIUM 70771021843 No Longer Active Piotr Daley DO Active PREDNISONE 20 MG ORAL TABLET 1 tablet twice daily for 2 days, then 1 tablet once daily for 2 days PREDNISONE 71332209005 No Longer Active Piotr Daley DO Active PROMETHAZINE HCL 25 MG ORAL TABLET 1 four times a day as needed for nausea/ vomiting PROMETHAZINE HCL 06127056510 No Longer Active Piotr Daley DO Active TUSSIONEX PENNKINETIC ER 10-8 MG/5ML ORAL SUSPENSION EXTENDED RELEASE 5ml po q12hr PRN Cough HYDROCOD POLST-CHLORPHEN POLST 71375158286 No Longer Active Piotr Daley DO Active AZITHROMYCIN 250 MG ORAL TABLET 2 po qd x 1 day, then 1 po qd x 4 days 10/13 AZITHROMYCIN 95515566533 No Longer Active Piotr Daley DO Active AZITHROMYCIN 250 MG ORAL TABLET 2 po qd x 1 day, then 1 po qd x 4 days 05/07 AZITHROMYCIN 03183664646 No Longer Active Piotr W Edi DO Active LISINOPRIL-HYDROCHLOROTHIAZIDE 10-12.5 MG ORAL TABLET 1 tab by mouth daily LISINOPRIL-HYDROCHLOROTHIAZIDE 01813614185 Active Piotr Daley DO Active LISINOPRIL 10 MG ORAL TABLET 1/2-1 tab po every other day LISINOPRIL 90882676633 No Longer Active Piotr Daley DO Active VENTOLIN HFA 108 (90 Base) MCG/ACT INHALATION AEROSOL SOLUTION 2 puffs four times a day PRN cough ALBUTEROL SULFATE 05155448094 No Longer Active Piotr Daley DO Active NYSTATIN-TRIAMCINOLONE 423782-6.1 UNIT/GM-% EXTERNAL CREAM Apply to area BID NYSTATIN-TRIAMCINOLONE 64026882155 No Longer Active Alena Chavira THREAD GRINDER Active PHISOHEX 3 % LIQD Use Directed HEXACHLOROPHENE 25222479380 No Longer Active Sandra Salinas Active AZITHROMYCIN 250 MG ORAL TABLET 2 po qd x 1 day, then 1 po qd x 4 days 10/21 AZITHROMYCIN 02546467772 No Longer Active Katrina Rinaldi MD PhD Active AZITHROMYCIN 250 MG ORAL TABLET 2 po qd x 1 day, then 1 po qd x 4 days 10/16 AZITHROMYCIN 22057920962 No Longer Active Piotr Daley DO Active AZITHROMYCIN 500 MG INTRAVENOUS SOLUTION RECONSTITUTED 1 po q day AZITHROMYCIN 70388286565 No Longer Active Piotr Daley DO Active NYSTATIN-TRIAMCINOLONE 915990-3.1 UNIT/GM-% EXTERNAL CREAM apply bid NYSTATIN-TRIAMCINOLONE 30553081578 No Longer Active Piotr Daley DO Active IBUPROFEN 800 MG ORAL TABLET 1 po q 8 hours prn pain sparinly IBUPROFEN 45119080874 No Longer Active Piotr Daley DO Active VITAMIN D3 5000 UNIT ORAL CAPSULE 1 po daily CHOLECALCIFEROL 77753630754 Active Piotr Daley DO Active IBUPROFEN 800 MG ORAL TABLET 1 po q 8 hours prn pain sparinly IBUPROFEN 800 MG ORAL TABLET 149699 IBUPROFEN Inactive NYSTATIN-TRIAMCINOLONE 265438-0.1 UNIT/GM-% EXTERNAL CREAM apply bid NYSTATIN-TRIAMCINOLONE 727333-2.1 UNIT/GM-% EXTERNAL CREAM 5161047 NYSTATIN-TRIAMCINOLONE Inactive AZITHROMYCIN 500 MG INTRAVENOUS SOLUTION RECONSTITUTED 1 po q day AZITHROMYCIN 500 MG INTRAVENOUS SOLUTION RECONSTITUTED 28054840941 AZITHROMYCIN Inactive VENTOLIN HFA 108 (90 Base) MCG/ACT INHALATION AEROSOL SOLUTION 2 puffs four times a day PRN cough VENTOLIN HFA 108 (90 Base) MCG/ ACT INHALATION AEROSOL SOLUTION ALBUTEROL SULFATE Inactive LISINOPRIL 10 MG ORAL TABLET 1/2-1 tab po every other day LISINOPRIL 10 MG ORAL TABLET 903631 LISINOPRIL Inactive TUSSIONEX PENNKINETIC ER 10-8 MG/5ML ORAL SUSPENSION EXTENDED RELEASE 5ml po q12hr PRN Cough TUSSIONEX PENNKINETIC ER 10-8 MG/5ML ORAL SUSPENSION EXTENDED RELEASE HYDROCOD POLST-CHLORPHEN POLST Inactive PROMETHAZINE HCL 25 MG ORAL TABLET 1 four times a day as needed for nausea/ vomiting PROMETHAZINE HCL 25 MG ORAL TABLET 368865 PROMETHAZINE HCL Inactive PREDNISONE 20 MG ORAL TABLET 1 tablet twice daily for 2 days, then 1 tablet once daily for 2 days PREDNISONE 20 MG ORAL TABLET 275184 PREDNISONE Inactive WARFARIN SODIUM 4 MG ORAL TABLET 1 tab every evening WARFARIN SODIUM 4 MG ORAL TABLET 844551 WARFARIN SODIUM Inactive LOMOTIL 2.5-0.025 MG ORAL TABLET 1 to 2 four times a day as needed for diarrhea LOMOTIL 2.5-0.025 MG ORAL TABLET 0601672 DIPHENOXYLATE-ATROPINE Inactive IBUPROFEN 800 MG ORAL TABLET 1 tab every 8 hours as needed 07/12 IBUPROFEN 800 MG ORAL TABLET 242146 IBUPROFEN Inactive PREDNISONE 20 MG ORAL TABLET 2 tablets today, then 1 tablet days 2 through 4 PREDNISONE 20 MG ORAL TABLET 839682 PREDNISONE Inactive GABAPENTIN 300 MG ORAL CAPSULE 1 po q hs for nerve pain GABAPENTIN 300 MG ORAL CAPSULE 754262 GABAPENTIN Inactive TRAMADOL HCL 50 MG ORAL TABLET 1 po tid with ES Tylenol TRAMADOL HCL 50 MG ORAL TABLET 007587 TRAMADOL HCL Inactive PROAIR HFA 108 (90 BASE) MCG/ACT INHALATION AEROSOL SOLUTION 1-2 puffs four times a day as needed PROAIR HFA 108 (90 BASE) MCG/ACT INHALATION AEROSOL SOLUTION ALBUTEROL SULFATE Inactive PREDNISONE 20 MG ORAL TABLET two tabs by mouth today, then one tab by mouth days two and three PREDNISONE 20 MG ORAL TABLET 634302 PREDNISONE Inactive TESSALON PERLES 100 MG ORAL CAPSULE 1-2 tablet by mouth 3 times daily 04/16 TESSALON PERLES 100 MG ORAL CAPSULE 103116 BENZONATATE Inactive PREDNISONE 10 MG ORAL TABLET 1 tablet by mouth daily PREDNISONE 10 MG ORAL TABLET 605428 PREDNISONE Inactive NYSTATIN 454926 UNIT/GM EXTERNAL CREAM Apply to rash 2-3 times a day and may repeat as needed NYSTATIN 676836 UNIT/GM EXTERNAL CREAM 541039 NYSTATIN Inactive TRIAMCINOLONE ACETONIDE 0.1 % EXTERNAL CREAM apply bid sparingly to rash 2017 TRIAMCINOLONE ACETONIDE 0.1 % EXTERNAL CREAM 5065026 TRIAMCINOLONE ACETONIDE Inactive AZITHROMYCIN 250 MG ORAL TABLET 2 po qd x 1 day, then 1 po qd x 4 days 10/16 AZITHROMYCIN 250 MG ORAL TABLET 415270 AZITHROMYCIN Inactive AZITHROMYCIN 250 MG ORAL TABLET 2 po qd x 1 day, then 1 po qd x 4 days 10/21 AZITHROMYCIN 250 MG ORAL TABLET 984084 AZITHROMYCIN Inactive NYSTATIN-TRIAMCINOLONE 849408-8.1 UNIT/GM-% EXTERNAL CREAM Apply to area BID NYSTATIN-TRIAMCINOLONE 259210-3.1 UNIT/GM-% EXTERNAL CREAM 8989924 NYSTATIN-TRIAMCINOLONE Inactive AZITHROMYCIN 250 MG ORAL TABLET 2 po qd x 1 day, then 1 po qd x 4 days 05/07 AZITHROMYCIN 250 MG ORAL TABLET 637136 AZITHROMYCIN Inactive AZITHROMYCIN 250 MG ORAL TABLET 2 po qd x 1 day, then 1 po qd x 4 days 10/13 AZITHROMYCIN 250 MG ORAL TABLET 469081 AZITHROMYCIN Inactive AZITHROMYCIN 250 MG ORAL TABLET 2 po qd x 1 day, then 1 po qd x 4 days 07/12 AZITHROMYCIN 250 MG ORAL TABLET 186252 AZITHROMYCIN Inactive PREDNISONE 20 MG ORAL TABLET 2 tabs daily for 3 days, 1 tab daily for 3 days, 1/2 tab daily for 2 days PREDNISONE 20 MG ORAL TABLET 699002 PREDNISONE Inactive DOXYCYCLINE HYCLATE 100 MG ORAL CAPSULE 1 cap by mouth BID x10 days DOXYCYCLINE HYCLATE 100 MG ORAL CAPSULE 0332739 DOXYCYCLINE HYCLATE Inactive ZITHROMAX 250 MG ORAL TABLET Take two (2 ) tablets day one, then one (1) tablet a day for four (4) more days ZITHROMAX 250 MG ORAL TABLET 313456 AZITHROMYCIN Inactive Advance Directives Directive Description Start [...] Ag - Chemistry sodium, serum 141 mmol/L 293-010 8079/12/17 carbon dioxide, venous blood 30.9 mmol/L 21.0-32.0 [...] 50-136 Encounters Code Encounter Date Provider Facility CPT-72974 [id number] Vst-Est Level III 14:29:05 CDT Piotr Daley [facility] CPT-08908 Level 3 Est. Patient 15:59:25 [employer] Piotr Daley [facility] CPT-52489 Level 3 Est. Patient 12:33:59 [employer] Piotr Daley [facility] CPT-36525 Level 3 Est. Patient 15:56:17 [employer] Piotr Dalye [facility] CPT-01286 Level 3 Est. Patient 10:34:54 [employer] Piotr Daley [facility] CPT-53528 Level 3 Est. Patient 17:10:19 CDT Nella Harris APRN [facility] CPT-74158 Level 3 Est. Patient 10:48:17 [employer] Matthew Rangel MD [facility] CPT-05125 Level 4 Est. Patient 17:15:07 [employer] Piotr Daley [facility] CPT-66797 Level 3 Est. Patient 12:46:13 [employer] Piotr Daley [facility] CPT-63810 Level 3 Est. Patient 15:14:31 [employer] Piotr Daley [facility] CPT-37543 Level 3 Est. Patient 09:20:13 [employer] Piotr Daley [facility] CPT-60969 Level 3 Est. Patient 09:49:40 CDT Piotr Daley [facility] CPT-22426 Level 3 Est. Patient 16:28:11 CDT Piotr Daley [facility] CPT-73067 Level 3 Est. Patient 12:41:58 [employer] Piotr Wilson Edi [facility] CPT-95006 Level 3 Est. Patient 09:21:24 CDT Piotr Daley [facility] CPT-03025 Level 3 Est. Patient 09:21:11 CDT Piotr Daley [facility] CPT-94170 Level 3 Est. Patient 11:16:29 [employer] Piotr Daley [facility] CPT-93051 Level 3 Est. Patient 18:40:19 [employer] Piotr Daley [facility] CPT-25580 Level 3 Est. Patient 19:30:50 CDT Piotr Daley [facility] CPT-24052 Level 3 Est. Patient 22:06:44 CDT Katrina Rinaldi MD PhD [facility] CPT-51141 Level 3 Est. Patient 14:20:00 CDT Piotr Wilson Edi [facility] CPT-77598 Level 3 Est. Patient 14:15:22 [employer] Piotr Daley [facility] CPT-45745 Level 3 Est. Patient 20:19:57 [employer] Piotr Wilson Edi [facility] CPT-47376 Level 3 Est. Patient 16:44:32 CDT Piotr Daley [facility] CPT-21299 Level 3 Est. Patient 08:48:46 [employer] Piotr Wilson Edi [facility] CPT-86792 Level 3 Est. Patient 21:01:21 CDT Piotr Katie Daley [facility] Procedures Code Procedure Name Date Entry Date Standard Description CPT-32234 Sacroiliac jt < 3V - XRAY USE ONLY 16:45:19 [employer] 05/09 CPT-07744 LS spine comp w obliques - XRAY USE ONLY 14:52:26 [employer] CPT-67937 Chest, 2 views 12:55:58 [employer] CPT-G0439 Subsequent Annual Wellness Exam 10:34:52 [employer] CPT-73689 BMP - LAB USE ONLY 17:19:11 [employer] CPT-28952 PT/INR - LAB USE ONLY 17:19:10 [employer] CPT-26094 Venipuncture Draw Fee 17:19:10 [employer] CPT-20790 PT/INR - LAB USE ONLY 08:12:25 [employer] CPT-62657 Venipuncture Draw Fee 08:12:24 [employer] CPT-83593 Venipuncture Draw Fee 11:31:07 [employer] CPT-86970 TPSA - LAB USE ONLY 11:31:07 [employer] CPT-91785 PT/INR - LAB USE ONLY 11:31:07 [employer] CPT-G0439 Subsequent Annual Wellness Exam 09:59:29 [employer] CPT-50602 Creatinine - LAB USE ONLY 14:37:55 [employer] CPT-21338 PT/INR - LAB USE ONLY 14:37:55 [employer] CPT-90300 Venipuncture Draw Fee 14:37:55 [employer] CPT-50487 LS spine comp w obliques - XRAY USE ONLY 12:59:25 [employer] CPT-72115 PT/INR - LAB USE ONLY 13:49:20 CDT CPT-10695 Venipuncture Draw Fee 13:49:19 CDT CPT-22316 PT/INR - LAB USE ONLY 15:48:49 CDT CPT-13266 Venipuncture Draw Fee 15:48:49 CDT CPT-83369 Venipuncture Draw Fee 11:31:59 CDT CPT-07181 PT/INR - LAB USE ONLY 11:31:59 CDT CPT-07427 Venipuncture Draw Fee 13:29:15 CDT CPT-08029 Thoracolumbar AP/Lat 15:19:19 [employer] CPT-G0438 Initial Annual Wellness Exam 12:18:54 [employer] CPT-22986 Knee 3V 09:57:38 CDT CPT-OV Office Visit 15:45:01 [employer] CPT-19781 Abd compl w upright 17:10:25 CDT
--- OUTSIDE RECORDS SUMMARY | 2018-07-18 08:59 | XMS REPORT | Clinical Summary ---
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 Personal history of malignant neoplasm of prostate Coronary artery disease 414.00 Active Alina Meyers APRN Coronary atherosclerosis of unspecified type of vessel, [place] or graft Back pain, thoracic region, left [...] [place] Acute bronchitis Dyspnea 786.09 Resolved Emelyn Norris [...] Leg pain, right ICD-729.5 Inactive Sirisha Chen INKING MACHINE TENDER Right leg pain ICD-729.5 Inactive Sirisha Chen INKING MACHINE TENDER Bronchitis-Acute ICD-466.0 Inactive Sirisha Chen INKING MACHINE TENDER Knee pain, left ICD-719.46 Inactive Sirisha Chen INKING MACHINE TENDER Actinic keratoses ICD-702.0 Inactive Sirisha Chen INKING MACHINE TENDER Back pain, thoracic region, left ICD-724.1 Inactive Piotr Daley DO Thoracic back pain ICD-724.5 Inactive Sirisha Chen INKING MACHINE TENDER Back pain lumbar ICD-724.2 Inactive Sirisha Chen INKING MACHINE TENDER Insect bite ICD-919.4 Inactive Sirisha Chen INKING MACHINE TENDER Pruritus ICD-698.9 Inactive Sirisha Chen INKING MACHINE TENDER 04/09 Bronchitis-Acute ICD-466.0 Inactive Sirisha Chen INKING MACHINE TENDER Dyspnea ICD-786.09 Inactive Sirisha Chen INKING MACHINE TENDER 05/09 Pes anserinus bursitis, right ICD-726.61 Inactive Piotr Daley DO Medication List Medication Instructions Start Date Stop Date Generic Name NDC Status Provider Patient Instruction TRIAMCINOLONE ACETONIDE 0.1 % EXTERNAL CREAM apply bid sparingly to rash 2017 TRIAMCINOLONE ACETONIDE 76515253926 No Longer Active Piotr Daley DO Active NYSTATIN 601695 UNIT/GM EXTERNAL CREAM Apply to rash 2-3 times a day and may repeat as needed NYSTATIN 24267805337 No Longer Active Piotr Daley DO Active WARFARIN SODIUM 4 MG ORAL TABLET 1 tablet by mouth daily WARFARIN SODIUM 88334120584 Active Anahy Hall Active MELOXICAM 15 MG ORAL TABLET 1 po q day for pain with food MELOXICAM 95813506550 Active Piotr Daley DO Active PREDNISONE 10 MG ORAL TABLET 1 tablet by mouth daily PREDNISONE 46182912331 No Longer Active Emelyn Norris Active TESSALON PERLES 100 MG ORAL CAPSULE 1-2 tablet by mouth 3 times daily 04/16 BENZONATATE 35955222158 No Longer Active Emelyn Norris Active PREDNISONE 20 MG ORAL TABLET two tabs by mouth today, then one tab by mouth days two and three PREDNISONE 55783030401 No Longer Active Piotr Daley DO Active CYCLOBENZAPRINE HCL 10 MG ORAL TABLET 1 tablet by mouth three times daily as needed for muscle spasm/pain CYCLOBENZAPRINE HCL 15396513575 Active Sirisha Chen LPN Active ZITHROMAX 250 MG ORAL TABLET Take two (2 ) tablets day one, then one (1) tablet a day for four (4) more days AZITHROMYCIN 97338183493 No Longer Active Piotr Daley DO Active PROAIR HFA 108 (90 BASE) MCG/ACT INHALATION AEROSOL SOLUTION 1-2 puffs four times a day as needed ALBUTEROL SULFATE 14125076457 No Longer Active Emelyn Norris Active DOXYCYCLINE HYCLATE 100 MG ORAL CAPSULE 1 cap by mouth BID x10 days DOXYCYCLINE HYCLATE 54504518148 No Longer Active Nella Harris APRN Active PREDNISONE 20 MG ORAL TABLET 2 tabs daily for 3 days, 1 tab daily for 3 days, 1/2 tab daily for 2 days PREDNISONE 01006518579 No Longer Active Matthew Rangel MD Active TRAMADOL HCL 50 MG ORAL TABLET 1 po tid with ES Tylenol TRAMADOL HCL 53839640015 No Longer Active Matthew Rangel MD Active GABAPENTIN 300 MG ORAL CAPSULE 1 po q hs for nerve pain GABAPENTIN 78335206869 No Longer Active Matthew Rangel MD Active PREDNISONE 20 MG ORAL TABLET 2 tablets today, then 1 tablet days 2 through 4 PREDNISONE 07651382785 No Longer Active Piotr Daley DO Active AZITHROMYCIN 250 MG ORAL TABLET 2 po qd x 1 day, then 1 po qd x 4 days 07/12 AZITHROMYCIN 95573982000 No Longer Active Piotr Daley DO Active IBUPROFEN 800 MG ORAL TABLET 1 tab every 8 hours as needed 07/12 IBUPROFEN 84021069122 No Longer Active Piotr Daley DO Active LOMOTIL 2.5-0.025 MG ORAL TABLET 1 to 2 four times a day as needed for diarrhea DIPHENOXYLATE-ATROPINE 36028817616 No Longer Active Piotr Daley DO Active WARFARIN SODIUM 4 MG ORAL TABLET 1 tab every evening WARFARIN SODIUM 51174766844 No Longer Active Piotr Daley DO Active PREDNISONE 20 MG ORAL TABLET 1 tablet twice daily for 2 days, then 1 tablet once daily for 2 days PREDNISONE 99461059553 No Longer Active Piotr Daley DO Active PROMETHAZINE HCL 25 MG ORAL TABLET 1 four times a day as needed for nausea/ vomiting PROMETHAZINE HCL 64300368353 No Longer Active Piotr Daley DO Active TUSSIONEX PENNKINETIC ER 10-8 MG/5ML ORAL SUSPENSION EXTENDED RELEASE 5ml po q12hr PRN Cough HYDROCOD POLST-CHLORPHEN POLST 95259699929 No Longer Active Piotr Daley DO Active AZITHROMYCIN 250 MG ORAL TABLET 2 po qd x 1 day, then 1 po qd x 4 days 10/13 AZITHROMYCIN 74409397807 No Longer Active Piotr Daley DO Active AZITHROMYCIN 250 MG ORAL TABLET 2 po qd x 1 day, then 1 po qd x 4 days 05/07 AZITHROMYCIN 42214567053 No Longer Active Piotr W Edi DO Active LISINOPRIL-HYDROCHLOROTHIAZIDE 10-12.5 MG ORAL TABLET 1 tab by mouth daily LISINOPRIL-HYDROCHLOROTHIAZIDE 54787604882 Active Piotr Daley DO Active LISINOPRIL 10 MG ORAL TABLET 1/2-1 tab po every other day LISINOPRIL 57796420518 No Longer Active Piotr Daley DO Active VENTOLIN HFA 108 (90 Base) MCG/ACT INHALATION AEROSOL SOLUTION 2 puffs four times a day PRN cough ALBUTEROL SULFATE 82001515469 No Longer Active Piotr Daley DO Active NYSTATIN-TRIAMCINOLONE 824581-3.1 UNIT/GM-% EXTERNAL CREAM Apply to area BID NYSTATIN-TRIAMCINOLONE 62311416667 No Longer Active Alena Chavira INKING MACHINE TENDER Active PHISOHEX 3 % LIQD Use Directed HEXACHLOROPHENE 69854338843 No Longer Active Sandra Salinas Active AZITHROMYCIN 250 MG ORAL TABLET 2 po qd x 1 day, then 1 po qd x 4 days 10/21 AZITHROMYCIN 11003228935 No Longer Active Katrina Rinaldi MD PhD Active AZITHROMYCIN 250 MG ORAL TABLET 2 po qd x 1 day, then 1 po qd x 4 days 10/16 AZITHROMYCIN 95736362886 No Longer Active Piotr Daley DO Active AZITHROMYCIN 500 MG INTRAVENOUS SOLUTION RECONSTITUTED 1 po q day AZITHROMYCIN 69504784059 No Longer Active Piotr Daley DO Active NYSTATIN-TRIAMCINOLONE 293571-8.1 UNIT/GM-% EXTERNAL CREAM apply bid NYSTATIN-TRIAMCINOLONE 23022064062 No Longer Active Piotr Daley DO Active IBUPROFEN 800 MG ORAL TABLET 1 po q 8 hours prn pain sparinly IBUPROFEN 93228342585 No Longer Active Piotr Daley DO Active VITAMIN D3 5000 UNIT ORAL CAPSULE 1 po daily CHOLECALCIFEROL 67496157555 Active Piotr Daley DO Active IBUPROFEN 800 MG ORAL TABLET 1 po q 8 hours prn pain sparinly IBUPROFEN 800 MG ORAL TABLET 671358 IBUPROFEN Inactive NYSTATIN-TRIAMCINOLONE 291147-8.1 UNIT/GM-% EXTERNAL CREAM apply bid NYSTATIN-TRIAMCINOLONE 242037-6.1 UNIT/GM-% EXTERNAL CREAM 0609039 NYSTATIN-TRIAMCINOLONE Inactive AZITHROMYCIN 500 MG INTRAVENOUS SOLUTION RECONSTITUTED 1 po q day AZITHROMYCIN 500 MG INTRAVENOUS SOLUTION RECONSTITUTED 78742595352 AZITHROMYCIN Inactive VENTOLIN HFA 108 (90 Base) MCG/ACT INHALATION AEROSOL SOLUTION 2 puffs four times a day PRN cough VENTOLIN HFA 108 (90 Base) MCG/ ACT INHALATION AEROSOL SOLUTION ALBUTEROL SULFATE Inactive LISINOPRIL 10 MG ORAL TABLET 1/2-1 tab po every other day LISINOPRIL 10 MG ORAL TABLET 532500 LISINOPRIL Inactive TUSSIONEX PENNKINETIC ER 10-8 MG/5ML ORAL SUSPENSION EXTENDED RELEASE 5ml po q12hr PRN Cough TUSSIONEX PENNKINETIC ER 10-8 MG/5ML ORAL SUSPENSION EXTENDED RELEASE HYDROCOD POLST-CHLORPHEN POLST Inactive PROMETHAZINE HCL 25 MG ORAL TABLET 1 four times a day as needed for nausea/ vomiting PROMETHAZINE HCL 25 MG ORAL TABLET 978315 PROMETHAZINE HCL Inactive PREDNISONE 20 MG ORAL TABLET 1 tablet twice daily for 2 days, then 1 tablet once daily for 2 days PREDNISONE 20 MG ORAL TABLET 523277 PREDNISONE Inactive WARFARIN SODIUM 4 MG ORAL TABLET 1 tab every evening WARFARIN SODIUM 4 MG ORAL TABLET 387704 WARFARIN SODIUM Inactive LOMOTIL 2.5-0.025 MG ORAL TABLET 1 to 2 four times a day as needed for diarrhea LOMOTIL 2.5-0.025 MG ORAL TABLET 9983993 DIPHENOXYLATE-ATROPINE Inactive IBUPROFEN 800 MG ORAL TABLET 1 tab every 8 hours as needed 07/12 IBUPROFEN 800 MG ORAL TABLET 379965 IBUPROFEN Inactive PREDNISONE 20 MG ORAL TABLET 2 tablets today, then 1 tablet days 2 through 4 PREDNISONE 20 MG ORAL TABLET 923374 PREDNISONE Inactive GABAPENTIN 300 MG ORAL CAPSULE 1 po q hs for nerve pain GABAPENTIN 300 MG ORAL CAPSULE 091956 GABAPENTIN Inactive TRAMADOL HCL 50 MG ORAL TABLET 1 po tid with ES Tylenol TRAMADOL HCL 50 MG ORAL TABLET 063807 TRAMADOL HCL Inactive PROAIR HFA 108 (90 BASE) MCG/ACT INHALATION AEROSOL SOLUTION 1-2 puffs four times a day as needed PROAIR HFA 108 (90 BASE) MCG/ACT INHALATION AEROSOL SOLUTION ALBUTEROL SULFATE Inactive PREDNISONE 20 MG ORAL TABLET two tabs by mouth today, then one tab by mouth days two and three PREDNISONE 20 MG ORAL TABLET 491108 PREDNISONE Inactive TESSALON PERLES 100 MG ORAL CAPSULE 1-2 tablet by mouth 3 times daily 04/16 TESSALON PERLES 100 MG ORAL CAPSULE 972423 BENZONATATE Inactive PREDNISONE 10 MG ORAL TABLET 1 tablet by mouth daily PREDNISONE 10 MG ORAL TABLET 677193 PREDNISONE Inactive NYSTATIN 461335 UNIT/GM EXTERNAL CREAM Apply to rash 2-3 times a day and may repeat as needed NYSTATIN 102341 UNIT/GM EXTERNAL CREAM 582165 NYSTATIN Inactive TRIAMCINOLONE ACETONIDE 0.1 % EXTERNAL CREAM apply bid sparingly to rash 2017 TRIAMCINOLONE ACETONIDE 0.1 % EXTERNAL CREAM 8190837 TRIAMCINOLONE ACETONIDE Inactive AZITHROMYCIN 250 MG ORAL TABLET 2 po qd x 1 day, then 1 po qd x 4 days 10/16 AZITHROMYCIN 250 MG ORAL TABLET 941494 AZITHROMYCIN Inactive AZITHROMYCIN 250 MG ORAL TABLET 2 po qd x 1 day, then 1 po qd x 4 days 10/21 AZITHROMYCIN 250 MG ORAL TABLET 092927 AZITHROMYCIN Inactive NYSTATIN-TRIAMCINOLONE 069420-1.1 UNIT/GM-% EXTERNAL CREAM Apply to area BID NYSTATIN-TRIAMCINOLONE 887078-4.1 UNIT/GM-% EXTERNAL CREAM 1605599 NYSTATIN-TRIAMCINOLONE Inactive AZITHROMYCIN 250 MG ORAL TABLET 2 po qd x 1 day, then 1 po qd x 4 days 05/07 AZITHROMYCIN 250 MG ORAL TABLET 465276 AZITHROMYCIN Inactive AZITHROMYCIN 250 MG ORAL TABLET 2 po qd x 1 day, then 1 po qd x 4 days 10/13 AZITHROMYCIN 250 MG ORAL TABLET 897334 AZITHROMYCIN Inactive AZITHROMYCIN 250 MG ORAL TABLET 2 po qd x 1 day, then 1 po qd x 4 days 07/12 AZITHROMYCIN 250 MG ORAL TABLET 965536 AZITHROMYCIN Inactive PREDNISONE 20 MG ORAL TABLET 2 tabs daily for 3 days, 1 tab daily for 3 days, 1/2 tab daily for 2 days PREDNISONE 20 MG ORAL TABLET 116324 PREDNISONE Inactive DOXYCYCLINE HYCLATE 100 MG ORAL CAPSULE 1 cap by mouth BID x10 days DOXYCYCLINE HYCLATE 100 MG ORAL CAPSULE 9449206 DOXYCYCLINE HYCLATE Inactive ZITHROMAX 250 MG ORAL TABLET Take two (2 ) tablets day one, then one (1) tablet a day for four (4) more days ZITHROMAX 250 MG ORAL TABLET 142065 AZITHROMYCIN Inactive Advance Directives Directive Description Start [...] Ag - Chemistry sodium, serum 141 mmol/L 757-124 5113/12/17 carbon dioxide, venous blood 30.9 mmol/L 21.0-32.0 [...] 50-136 Encounters Code Encounter Date Provider Facility CPT-79426 [id number] Vst-Est Level III 14:29:05 CDT Piotr Daley [facility] CPT-55217 Level 3 Est. 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 Patient 12:33:59 HEAD OF MARKETING ADOMETRY Piotr Daley [facility] CPT-62780 Level 3 Est. Patient 15:56:17 HEAD OF MARKETING ADOMETRY Piotr Daley [facility] CPT-99197 Level 3 Est. Patient 10:34:54 HEAD OF MARKETING ADOMETRY Piotr Daley [facility] CPT-32434 Level 3 Est. Patient 17:10:19 CDT Nella Harris APRN [facility] CPT-02198 Level 3 Est. Patient 10:48:17 HEAD OF MARKETING ADOMETRY Matthew Rangel MD [facility] CPT-54791 Level 4 Est. Patient 17:15:07 HEAD OF MARKETING ADOMETRY Piotr Daley [facility] CPT-66880 Level 3 Est. Patient 12:46:13 HEAD OF MARKETING ADOMETRY Piotr Daley [facility] CPT-95641 Level 3 Est. Patient 15:14:31 HEAD OF MARKETING ADOMETRY Piotr Daley [facility] CPT-06156 Level 3 Est. Patient 09:20:13 HEAD OF MARKETING ADOMETRY Piotr Daley [facility] CPT-44783 Level 3 Est. Patient 09:49:40 CDT Piotr Daley [facility] CPT-88492 Level 3 Est. Patient 16:28:11 CDT Piotr Daley [facility] CPT-16396 Level 3 Est. 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 Patient 09:21:24 CDT Piotr Daley [facility] CPT-81435 Level 3 Est. Patient 09:21:11 CDT Piotr Daley [facility] CPT-26390 Level 3 Est. Patient 11:16:29 HEAD OF MARKETING ADOMETRY Piotr Katie Daley [facility] CPT-72847 Level 3 Est. Patient 18:40:19 HEAD OF MARKETING ADOMETRY Piotr Daley [facility] CPT-90014 Level 3 Est. Patient 19:30:50 CDT Piotr Daley [facility] CPT-59558 Level 3 Est. Patient 22:06:44 CDT Katrina Rinaldi MD PhD [facility] CPT-81605 Level 3 Est. Patient 14:20:00 CDT Piotr Daley [facility] CPT-27251 Level 3 Est. Patient 14:15:22 HEAD OF MARKETING ADOMETRY Piotr Daley [facility] CPT-49097 Level 3 Est. Patient 20:19:57 HEAD OF MARKETING ADOMETRY Piotr Daley [facility] CPT-54859 Level 3 Est. Patient 16:44:32 CDT Piotr Daley [facility] CPT-58644 Level 3 Est. Patient 08:48:46 HEAD OF MARKETING ADOMETRY Piotr Wilson Edi [facility] CPT-88799 Level 3 Est. Patient 21:01:21 CDT Piotr Wilson Edi [facility] Procedures Code Procedure Name Date Entry Date Standard Description CPT-44593 Sacroiliac jt < 3V - XRAY USE ONLY 16:45:19 HEAD OF MARKETING ADOMETRY 05/09 CPT-38261 LS spine comp w obliques - XRAY USE ONLY 14:52:26 HEAD OF MARKETING ADOMETRY CPT-19749 Chest, 2 views 12:55:58 [employer] MARKETING [employer]OMETRY CPT-G0439 Subsequent Annual Wellness Exam 10:34:52 HEAD OF MARKETING ADOMETRY CPT-97697 BMP - LAB USE ONLY 17:19:11 HEAD OF MARKETING ADOMETRY CPT-86600 PT/INR - LAB USE ONLY 17:19:10 HEAD OF MARKETING ADOMETRY CPT-83017 Venipuncture Draw Fee 17:19:10 HEAD OF MARKETING ADOMETRY CPT-24962 PT/INR - LAB USE ONLY 08:12:25 HEAD OF MARKETING ADOMETRY CPT-31291 Venipuncture Draw Fee 08:12:24 HEAD OF MARKETING ADOMETRY CPT-68227 Venipuncture Draw Fee 11:31:07 HEAD OF MARKETING ADOMETRY CPT-24437 TPSA - LAB USE ONLY 11:31:07 HEAD OF MARKETING ADOMETRY CPT-40661 PT/INR - LAB USE ONLY 11:31:07 HEAD OF MARKETING ADOMETRY CPT-G0439 Subsequent Annual Wellness Exam 09:59:29 HEAD OF MARKETING ADOMETRY CPT-62974 Creatinine - LAB USE ONLY 14:37:55 HEAD OF MARKETING ADOMETRY CPT-30312 PT/INR - LAB USE ONLY 14:37:55 HEAD OF MARKETING ADOMETRY CPT-28553 Venipuncture Draw Fee 14:37:55 HEAD OF MARKETING [employer]OMETRY CPT-23051 LS spine comp w obliques - XRAY USE ONLY 12:59:25 HEAD OF MARKETING ADOMETRY CPT-28757 PT/INR - LAB USE ONLY 13:49:20 CDT CPT-84625 Venipuncture Draw Fee 13:49:19 CDT CPT-51177 PT/INR - LAB USE ONLY 15:48:49 CDT CPT-36945 Venipuncture Draw Fee 15:48:49 CDT CPT-58221 Venipuncture Draw Fee 11:31:59 CDT CPT-58666 PT/INR - LAB USE ONLY 11:31:59 CDT CPT-65939 Venipuncture Draw Fee 13:29:15 CDT CPT-29079 Thoracolumbar AP/Lat 15:19:19 [employer] MARKETING [employer]OMETRY CPT-G0438 Initial Annual Wellness Exam 12:18:54 HEAD [employer] MARKETING [employer]OMETRY CPT-10125 Knee 3V 09:57:38 CDT CPT-OV Office Visit 15:45:01 HEAD [employer] MARKETING ADOMETRY CPT-65638 Abd compl w upright 17:10:25 CDT
--- OUTSIDE RECORDS SUMMARY | 2018-07-18 09:00 | XMS REPORT | Clinical Summary ---
Author Author Admin, Bita Organization [facility] [employer] Address Unknown Phone Unavailable Allergies, Adverse Reactions, [...] Coronary atherosclerosis of unspecified type of vessel, [place] or graft Back pain, thoracic region, [...] care facility Bronchitis-Acute 466.0 Resolved Emelyn Goode Jr Acute bronchitis Dyspnea 786.09 Resolved Emelyn Goode R[place]albita Other dyspnea and respiratory abnormality Sacroiliitis, right 720.2 Active Emelyn Goode Jr Sacroiliitis, not elsewhere classified Pes anserinus bursitis, right 726.61 Active Piotr Daley DO Pes anserinus tendinitis or bursitis Body Mass Index 30.0-30.9 Adult Active Piotr Daley DO Body Mass Index 30.0-30.9, adult HEALTH MAINTENANCE EXAM ICD-V70.0 Inactive Katrina Rinaldi [...] LPN Right leg pain ICD-729.5 Inactive Sirisha Gustavo AGEEN Bronchitis-Acute ICD-466.0 Inactive Sirisha Chen LPN Knee pain, left ICD-719.46 Inactive Sirisha Chen TORPEDO SPECIALIST Actinic keratoses ICD-702.0 Inactive Sirisha Chen TORPEDO SPECIALIST Back pain, thoracic region, left ICD-724.1 Inactive Piotr Daley DO Thoracic back pain ICD-724.5 Inactive Sirisha Chen TORPEDO SPECIALIST Back pain lumbar ICD-724.2 Inactive Sirisha Chen TORPEDO SPECIALIST Insect bite ICD-919.4 Inactive Sirisha Chen TORPEDO SPECIALIST Pruritus ICD-698.9 Inactive Sirisha Chen TORPEDO SPECIALIST 04/09 DEEP VENOUS THROMBOPHLEBITIS, LEG, 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 Inactive Sirisha Chen TORPEDO SPECIALIST DEEP VENOUS THROMBOPHLEBITIS, LEG, 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 Inactive Sirisha Chen TORPEDO SPECIALIST Bronchitis-Acute ICD-466.0 Inactive Sirisha Chen TORPEDO SPECIALIST Dyspnea ICD-786.09 Inactive Sirisha Chen TORPEDO SPECIALIST 05/09 Medication List Medication Instructions Start Date Stop Date Generic Name NDC Status Provider Patient Instruction NYSTATIN 993553 UNIT/GM EXTERNAL CREAM Apply to rash 2-3 times a day and may repeat as needed NYSTATIN 93745827971 Active Sirisha Chen TORPEDO SPECIALIST Active TRIAMCINOLONE ACETONIDE 0.1 % EXTERNAL CREAM apply bid sparingly to rash 2017 TRIAMCINOLONE ACETONIDE 67734006300 Active Sirisha Chen TORPEDO SPECIALIST Active WARFARIN SODIUM 4 MG ORAL TABLET 1 tablet by mouth daily WARFARIN SODIUM 67568162098 Active Piotr Daley DO Active MELOXICAM 15 MG ORAL TABLET 1 po q day for pain with food MELOXICAM 60304444186 Active Piotr Daley DO Active PREDNISONE 10 MG ORAL TABLET 1 tablet by mouth daily PREDNISONE 89367237326 No Longer Active Emelyn Norris Active TESSALON PERLES 100 MG ORAL CAPSULE 1-2 tablet by mouth 3 times daily 04/16 BENZONATATE 46887860638 No Longer Active Emelyn Norris Active PREDNISONE 20 MG ORAL TABLET two tabs by mouth today, then one tab by mouth days two and three PREDNISONE 71202356136 No Longer Active Piotr Daley DO Active CYCLOBENZAPRINE HCL 10 MG ORAL TABLET 1 tablet by mouth three times daily as needed for muscle spasm/pain CYCLOBENZAPRINE HCL 16108001183 Active Sirisha Chen LPN Active ZITHROMAX 250 MG ORAL TABLET Take two (2 ) tablets day one, then one (1) tablet a day for four (4) more days AZITHROMYCIN 56949672983 No Longer Active Piotr Daley DO Active PROAIR HFA 108 (90 BASE) MCG/ACT INHALATION AEROSOL SOLUTION 1-2 puffs four times a day as needed ALBUTEROL SULFATE 31117025565 No Longer Active Emelyn Norris Active DOXYCYCLINE HYCLATE 100 MG ORAL CAPSULE 1 cap by mouth BID x10 days DOXYCYCLINE HYCLATE 21508815072 No Longer Active Nella Harris APRN Active PREDNISONE 20 MG ORAL TABLET 2 tabs daily for 3 days, 1 tab daily for 3 days, 1/2 tab daily for 2 days PREDNISONE 22260339503 No Longer Active Matthew Rangel MD Active TRAMADOL HCL 50 MG ORAL TABLET 1 po tid with ES Tylenol TRAMADOL HCL 85988290444 No Longer Active Matthew Rangel MD Active GABAPENTIN 300 MG ORAL CAPSULE 1 po q hs for nerve pain GABAPENTIN 18259566925 No Longer Active Matthew Rangel MD Active PREDNISONE 20 MG ORAL TABLET 2 tablets today, then 1 tablet days 2 through 4 PREDNISONE 17645091562 No Longer Active Piotr Daley DO Active AZITHROMYCIN 250 MG ORAL TABLET 2 po qd x 1 day, then 1 po qd x 4 days 07/12 AZITHROMYCIN 89391504408 No Longer Active Piotr Daley DO Active IBUPROFEN 800 MG ORAL TABLET 1 tab every 8 hours as needed 07/12 IBUPROFEN 87107296945 No Longer Active Piotr Daley DO Active LOMOTIL 2.5-0.025 MG ORAL TABLET 1 to 2 four times a day as needed for diarrhea DIPHENOXYLATE-ATROPINE 84346066995 No Longer Active Piotr Daley DO Active WARFARIN SODIUM 4 MG ORAL TABLET 1 tab every evening WARFARIN SODIUM 99353923035 No Longer Active Piotr Daley DO Active PREDNISONE 20 MG ORAL TABLET 1 tablet twice daily for 2 days, then 1 tablet once daily for 2 days PREDNISONE 85864990480 No Longer Active Piotr Daley DO Active PROMETHAZINE HCL 25 MG ORAL TABLET 1 four times a day as needed for nausea/ vomiting PROMETHAZINE HCL 95163811371 No Longer Active Piotr Daley DO Active TUSSIONEX PENNKINETIC ER 10-8 MG/5ML ORAL SUSPENSION EXTENDED RELEASE 5ml po q12hr PRN Cough HYDROCOD POLST-CHLORPHEN POLST 27498582778 No Longer Active Piotr Daley DO Active AZITHROMYCIN 250 MG ORAL TABLET 2 po qd x 1 day, then 1 po qd x 4 days 10/13 AZITHROMYCIN 21325710821 No Longer Active Piotr Daley DO Active AZITHROMYCIN 250 MG ORAL TABLET 2 po qd x 1 day, then 1 po qd x 4 days 05/07 AZITHROMYCIN 38129710955 No Longer Active Piotr Daley DO Active LISINOPRIL-HYDROCHLOROTHIAZIDE 10-12.5 MG ORAL TABLET 1 tab by mouth daily LISINOPRIL-HYDROCHLOROTHIAZIDE 91449659370 Active Piotr Daley DO Active LISINOPRIL 10 MG ORAL TABLET 1/2-1 tab po every other day LISINOPRIL 65620466416 No Longer Active Piotr Daley DO Active VENTOLIN HFA 108 (90 Base) MCG/ACT INHALATION AEROSOL SOLUTION 2 puffs four times a day PRN cough ALBUTEROL SULFATE 21981885874 No Longer Active Piotr Daley DO Active NYSTATIN-TRIAMCINOLONE 835339-2.1 UNIT/GM-% EXTERNAL CREAM Apply to area BID NYSTATIN-TRIAMCINOLONE 51178992045 No Longer Active Alena Chavira TORPEDO SPECIALIST Active PHISOHEX 3 % LIQD Use Directed HEXACHLOROPHENE 77063808349 No Longer Active Sandra Lyons Active AZITHROMYCIN 250 MG ORAL TABLET 2 po qd x 1 day, then 1 po qd x 4 days 10/21 AZITHROMYCIN 34329704555 No Longer Active Katrina Rinaldi MD PhD Active AZITHROMYCIN 250 MG ORAL TABLET 2 po qd x 1 day, then 1 po qd x 4 days 10/16 AZITHROMYCIN 14571918588 No Longer Active Piotr Daley DO Active AZITHROMYCIN 500 MG INTRAVENOUS SOLUTION RECONSTITUTED 1 po q day AZITHROMYCIN 30825950504 No Longer Active Piotr Daley DO Active NYSTATIN-TRIAMCINOLONE 096374-8.1 UNIT/GM-% EXTERNAL CREAM apply bid NYSTATIN-TRIAMCINOLONE 46019604633 No Longer Active Piotr Daley DO Active IBUPROFEN 800 MG ORAL TABLET 1 po q 8 hours prn pain sparinly IBUPROFEN 84324924591 No Longer Active Piotr Daley DO Active VITAMIN D3 5000 UNIT ORAL CAPSULE 1 po daily CHOLECALCIFEROL 20238620331 Active Piotr Daley DO Active IBUPROFEN 800 MG ORAL TABLET 1 po q 8 hours prn pain sparinly IBUPROFEN 800 MG ORAL TABLET 902383 IBUPROFEN Inactive NYSTATIN-TRIAMCINOLONE 889113-5.1 UNIT/GM-% EXTERNAL CREAM apply bid NYSTATIN-TRIAMCINOLONE 240390-6.1 UNIT/GM-% EXTERNAL CREAM 7575924 NYSTATIN-TRIAMCINOLONE Inactive AZITHROMYCIN 500 MG INTRAVENOUS SOLUTION RECONSTITUTED 1 po q day AZITHROMYCIN 500 MG INTRAVENOUS SOLUTION RECONSTITUTED 76687377312 AZITHROMYCIN Inactive VENTOLIN HFA 108 (90 Base) MCG/ACT INHALATION AEROSOL SOLUTION 2 puffs four times a day PRN cough VENTOLIN HFA 108 (90 Base) MCG/ ACT INHALATION AEROSOL SOLUTION ALBUTEROL SULFATE Inactive LISINOPRIL 10 MG ORAL TABLET 1/2-1 tab po every other day LISINOPRIL 10 MG ORAL TABLET 887226 LISINOPRIL Inactive TUSSIONEX PENNKINETIC ER 10-8 MG/5ML ORAL SUSPENSION EXTENDED RELEASE 5ml po q12hr PRN Cough TUSSIONEX PENNKINETIC ER 10-8 MG/5ML ORAL SUSPENSION EXTENDED RELEASE HYDROCOD POLST-CHLORPHEN POLST Inactive PROMETHAZINE HCL 25 MG ORAL TABLET 1 four times a day as needed for nausea/ vomiting PROMETHAZINE HCL 25 MG ORAL TABLET 679130 PROMETHAZINE HCL Inactive PREDNISONE 20 MG ORAL TABLET 1 tablet twice daily for 2 days, then 1 tablet once daily for 2 days PREDNISONE 20 MG ORAL TABLET 456507 PREDNISONE Inactive WARFARIN SODIUM 4 MG ORAL TABLET 1 tab every evening WARFARIN SODIUM 4 MG ORAL TABLET 436429 WARFARIN SODIUM Inactive LOMOTIL 2.5-0.025 MG ORAL TABLET 1 to 2 four times a day as needed for diarrhea LOMOTIL 2.5-0.025 MG ORAL TABLET 2530802 DIPHENOXYLATE-ATROPINE Inactive IBUPROFEN 800 MG ORAL TABLET 1 tab every 8 hours as needed 07/12 IBUPROFEN 800 MG ORAL TABLET 499475 IBUPROFEN Inactive PREDNISONE 20 MG ORAL TABLET 2 tablets today, then 1 tablet days 2 through 4 PREDNISONE 20 MG ORAL TABLET 482801 PREDNISONE Inactive GABAPENTIN 300 MG ORAL CAPSULE 1 po q hs for nerve pain GABAPENTIN 300 MG ORAL CAPSULE 338606 GABAPENTIN Inactive TRAMADOL HCL 50 MG ORAL TABLET 1 po tid with ES Tylenol TRAMADOL HCL 50 MG ORAL TABLET 462415 TRAMADOL HCL Inactive PROAIR HFA 108 (90 BASE) MCG/ACT INHALATION AEROSOL SOLUTION 1-2 puffs four times a day as needed PROAIR HFA 108 (90 BASE) MCG/ACT INHALATION AEROSOL SOLUTION ALBUTEROL SULFATE Inactive PREDNISONE 20 MG ORAL TABLET two tabs by mouth today, then one tab by mouth days two and three PREDNISONE 20 MG ORAL TABLET 470181 PREDNISONE Inactive TESSALON PERLES 100 MG ORAL CAPSULE 1-2 tablet by mouth 3 times daily 04/16 TESSALON PERLES 100 MG ORAL CAPSULE 198963 BENZONATATE Inactive PREDNISONE 10 MG ORAL TABLET 1 tablet by mouth daily PREDNISONE 10 MG ORAL TABLET 649321 PREDNISONE Inactive AZITHROMYCIN 250 MG ORAL TABLET 2 po qd x 1 day, then 1 po qd x 4 days 10/16 AZITHROMYCIN 250 MG ORAL TABLET 908841 AZITHROMYCIN Inactive AZITHROMYCIN 250 MG ORAL TABLET 2 po qd x 1 day, then 1 po qd x 4 days 10/21 AZITHROMYCIN 250 MG ORAL TABLET 581651 AZITHROMYCIN Inactive NYSTATIN-TRIAMCINOLONE 943131-7.1 UNIT/GM-% EXTERNAL CREAM Apply to area BID NYSTATIN-TRIAMCINOLONE 139811-4.1 UNIT/GM-% EXTERNAL CREAM 2908200 NYSTATIN-TRIAMCINOLONE Inactive AZITHROMYCIN 250 MG ORAL TABLET 2 po qd x 1 day, then 1 po qd x 4 days 05/07 AZITHROMYCIN 250 MG ORAL TABLET 915578 AZITHROMYCIN Inactive AZITHROMYCIN 250 MG ORAL TABLET 2 po qd x 1 day, then 1 po qd x 4 days 10/13 AZITHROMYCIN 250 MG ORAL TABLET 597210 AZITHROMYCIN Inactive AZITHROMYCIN 250 MG ORAL TABLET 2 po qd x 1 day, then 1 po qd x 4 days 07/12 AZITHROMYCIN 250 MG ORAL TABLET 314685 AZITHROMYCIN Inactive PREDNISONE 20 MG ORAL TABLET 2 tabs daily for 3 days, 1 tab daily for 3 days, 1/2 tab daily for 2 days PREDNISONE 20 MG ORAL TABLET 286891 PREDNISONE Inactive DOXYCYCLINE HYCLATE 100 MG ORAL CAPSULE 1 cap by mouth BID x10 days DOXYCYCLINE HYCLATE 100 MG ORAL CAPSULE 2746815 DOXYCYCLINE HYCLATE Inactive ZITHROMAX 250 MG ORAL TABLET Take two (2 ) tablets day one, then one (1) tablet a day for four (4) more days ZITHROMAX 250 MG ORAL TABLET 761570 AZITHROMYCIN Inactive Advance Directives Directive Description Start [...] Measured Encounters Code Encounter Date Provider Facility CPT-11253 34638-Lwd Vst-Est Level III 14:29:05 CDT Piotr Daley [facility] CPT-24997 Level 3 Est. Patient 15:59:25 PMP CERTIFIED PROJECT MANAGER Piotr Daley [facility] CPT-49356 Level 3 Est. Patient 12:33:59 PMP CERTIFIED PROJECT MANAGER Piotr Daley [facility] CPT-87413 Level 3 Est. Patient 15:56:17 PMP CERTIFIED PROJECT MANAGER Piotr Daley [facility] CPT-97385 Level 3 Est. Patient 10:34:54 PMP CERTIFIED PROJECT MANAGER Piotr Wilson [facility] [place] CPT-13021 Level 3 Est. Patient 17:10:19 CDT Nella Harris APRN [facility] CPT-40170 Level 3 Est. Patient 10:48:17 PMP CERTIFIED PROJECT MANAGER Matthew Rangel MD [facility] CPT-63429 Level 4 Est. Patient 17:15:07 PMP CERTIFIED PROJECT MANAGER Piotr Daley [facility] CPT-26591 Level 3 Est. Patient 12:46:13 PMP CERTIFIED PROJECT MANAGER Piotr Daley [facility] CPT-47338 Level 3 Est. Patient 15:14:31 PMP CERTIFIED PROJECT MANAGER Piotr Daley [facility] CPT-01405 Level 3 Est. Patient 09:20:13 PMP CERTIFIED PROJECT MANAGER Piotr Daley [facility] CPT-40030 Level 3 Est. Patient 09:49:40 CDT Piotr Wilson [facility] [place] CPT-48557 Level 3 Est. Patient 16:28:11 CDT Piotr Daley [facility] CPT-02894 Level 3 Est. Patient 12:41:58 PMP CERTIFIED PROJECT MANAGER Piotr Daley [facility] CPT-42103 Level 3 Est. Patient 09:21:24 CDT Piotr Daley [facility] CPT-06948 Level 3 Est. Patient 09:21:11 CDT Piotr Daley [facility] CPT-40681 Level 3 Est. Patient 11:16:29 PMP CERTIFIED PROJECT MANAGER Piotr Daley [facility] CPT-43596 Level 3 Est. Patient 18:40:19 PMP CERTIFIED PROJECT MANAGER Piotr Daley [facility] CPT-00230 Level 3 Est. Patient 19:30:50 CDT Piotr Daley [facility] CPT-04347 Level 3 Est. Patient 22:06:44 CDT Katrina Rinaldi MD [facility] CPT-12336 Level 3 Est. Patient 14:20:00 CDT Piotr Katie Daley [facility] CPT-14989 Level 3 Est. Patient 14:15:22 PMP CERTIFIED PROJECT MANAGER Piotr Wilson Edi [facility] CPT-74897 Level 3 Est. Patient 20:19:57 PMP CERTIFIED PROJECT MANAGER Piotr Daley [facility] CPT-76247 Level 3 Est. Patient 16:44:32 CDT Piotr Katie Edi [facility] CPT-18921 Level 3 Est. Patient 08:48:46 PMP CERTIFIED PROJECT MANAGER Piotr Katie Daley [facility] CPT-05430 Level 3 Est. Patient 21:01:21 CDT Piotr Daley [facility] Procedures Code Procedure Name Date Entry Date Standard Description CPT-79323 Sacroiliac jt < 3V - XRAY USE ONLY 16:45:19 PMP CERTIFIED PROJECT MANAGER 05/09 CPT-67949 LS spine comp w obliques - XRAY USE ONLY 14:52:26 PMP CERTIFIED PROJECT MANAGER CPT-21546 Chest, 2 views 12:55:58 PMP CERTIFIED PROJECT MANAGER CPT-G0439 Subsequent Annual Wellness Exam 10:34:52 PMP CERTIFIED PROJECT MANAGER CPT-87856 BMP - LAB USE ONLY 17:19:11 PMP CERTIFIED PROJECT MANAGER CPT-10334 PT/INR - LAB USE ONLY 17:19:10 PMP CERTIFIED PROJECT MANAGER CPT-97119 Venipuncture Draw Fee 17:19:10 PMP CERTIFIED PROJECT MANAGER CPT-13944 PT/INR - LAB USE ONLY 08:12:25 PMP CERTIFIED PROJECT MANAGER CPT-15965 Venipuncture Draw Fee 08:12:24 PMP CERTIFIED PROJECT MANAGER CPT-48187 Venipuncture Draw Fee 11:31:07 PMP CERTIFIED PROJECT MANAGER CPT-97326 TPSA - LAB USE ONLY 11:31:07 PMP CERTIFIED PROJECT MANAGER CPT-22618 PT/INR - LAB USE ONLY 11:31:07 PMP CERTIFIED PROJECT MANAGER CPT-G0439 Subsequent Annual Wellness Exam 09:59:29 PMP CERTIFIED PROJECT MANAGER CPT-70452 Creatinine - LAB USE ONLY 14:37:55 PMP CERTIFIED PROJECT MANAGER CPT-35440 PT/INR - LAB USE ONLY 14:37:55 PMP CERTIFIED PROJECT MANAGER CPT-51743 Venipuncture Draw Fee 14:37:55 PMP CERTIFIED PROJECT MANAGER CPT-68494 LS spine comp w obliques - XRAY USE ONLY 12:59:25 PMP CERTIFIED PROJECT MANAGER CPT-92091 PT/INR - LAB USE ONLY 13:49:20 CDT CPT-23716 Venipuncture Draw Fee 13:49:19 CDT CPT-32430 PT/INR - LAB USE ONLY 15:48:49 CDT CPT-27664 Venipuncture Draw Fee 15:48:49 CDT CPT-53601 Venipuncture Draw Fee 11:31:59 CDT CPT-66383 PT/INR - LAB USE ONLY 11:31:59 CDT CPT-54101 Venipuncture Draw Fee 13:29:15 CDT CPT-57471 Thoracolumbar AP/Lat 15:19:19 PMP CERTIFIED PROJECT MANAGER CPT-G0438 Initial Annual Wellness Exam 12:18:54 PMP CERTIFIED PROJECT MANAGER CPT-49788 Knee 3V 09:57:38 CDT CPT-OV Office Visit 15:45:01 PMP CERTIFIED PROJECT MANAGER CPT-52473 Abd compl w upright 17:10:25 CDT
--- OUTSIDE RECORDS SUMMARY | 2018-07-18 09:01 | XMS REPORT | Clinical Summary ---
Author Author Admin, [facility] [employer] [facility] Address Unknown Phone Unavailable Allergies, Adverse Reactions, [...] in limb Right leg pain 729.5 Resolved Ipotr Katie Edi DO Pain in limb Bronchitis-Acute [...] Coronary atherosclerosis of unspecified type of vessel, osage or graft Back pain, thoracic region, left [...] disorder Wellness exam V70.0 Active Emelyn Russel [place] Routine general medical examination at a health care facility Bronchitis-Acute 466.0 Resolved Emelyn Norris Acute bronchitis Dyspnea 786.09 Resolved Emelyn Goode Rachealbita Other dyspnea and respiratory abnormality Sacroiliitis, right 720.2 Active Emelyn Goode R[place]al[place] Sacroiliitis, not elsewhere classified Pes anserinus bursitis, right 726.61 Active Piotr Daley DO Pes anserinus tendinitis or bursitis Body Mass Index 30.0-30.9 Adult Active Piotr Daley DO Body Mass Index 30.0-30.9, adult FLANK PAIN, RIGHT ICD-789.09 Inactive Katrina Rinaldi [...] Leg pain, right ICD-729.5 Inactive Sirisha Chen [employer]IV[employer]ER Right leg pain ICD-729.5 Inactive Sirisha Chen [employer]ER Bronchitis-Acute ICD-466.0 Inactive Sirisha Chen E[employer]LET [employer]IVETER Knee pain, left ICD-719.46 Inactive Sirisha Chen E[employer]IV[employer]ER Actinic keratoses ICD-702.0 Inactive Sirisha Chen EYELET [employer]IVETER Back pain, thoracic region, left ICD-724.1 Inactive Piotr Daley DO Thoracic back pain ICD-724.5 Inactive Sirisha Chen E[employer]IVETER Back pain lumbar ICD-724.2 Inactive Sirisah Chen EYELET RIVETER Insect bite ICD-919.4 Inactive Sirisha Chen EYELET RIVETER Pruritus ICD-698.9 Inactive Sirisha Chen EYELET RIVETER 04/09 Bronchitis-Acute ICD-466.0 Inactive Sirisha Chen E[employer]IVETER Dyspnea ICD-786.09 Inactive Sirisha Chen EYELET RIVETER 05/09 Medication List Medication Instructions Start Date Stop Date Generic Name NDC Status Provider Patient Instruction NYSTATIN 378106 UNIT/GM EXTERNAL CREAM Apply to rash 2-3 times a day and may repeat as needed NYSTATIN 64249512393 Active Sirisha Chen EYELET RIVETER Active TRIAMCINOLONE ACETONIDE 0.1 % EXTERNAL CREAM apply bid sparingly to rash 2017 TRIAMCINOLONE ACETONIDE 50502201760 Active Sirisha Chen EYELET RIVETER Active WARFARIN SODIUM 4 MG ORAL TABLET 1 tablet by mouth daily WARFARIN SODIUM 91673854736 Active Piotr Daley DO Active MELOXICAM 15 MG ORAL TABLET 1 po q day for pain with food MELOXICAM 54036781337 Active Piotr Daley DO Active PREDNISONE 10 MG ORAL TABLET 1 tablet by mouth daily PREDNISONE 44643078361 No Longer Active Emelyn Norris Active TESSALON PERLES 100 MG ORAL CAPSULE 1-2 tablet by mouth 3 times daily 04/16 BENZONATATE 57194974020 No Longer Active Emelyn Norris Active PREDNISONE 20 MG ORAL TABLET two tabs by mouth today, then one tab by mouth days two and three PREDNISONE 06804273057 No Longer Active Piotr Daley DO Active CYCLOBENZAPRINE HCL 10 MG ORAL TABLET 1 tablet by mouth three times daily as needed for muscle spasm/pain CYCLOBENZAPRINE HCL 36539334897 Active Sirisha Chen LPN Active ZITHROMAX 250 MG ORAL TABLET Take two (2 ) tablets day one, then one (1) tablet a day for four (4) more days AZITHROMYCIN 78618393041 No Longer Active Piotr Daley DO Active PROAIR HFA 108 (90 BASE) MCG/ACT INHALATION AEROSOL SOLUTION 1-2 puffs four times a day as needed ALBUTEROL SULFATE 83802141883 No Longer Active Emelyn Norris Active DOXYCYCLINE HYCLATE 100 MG ORAL CAPSULE 1 cap by mouth BID x10 days DOXYCYCLINE HYCLATE 43374493675 No Longer Active Nella Harris APRN Active PREDNISONE 20 MG ORAL TABLET 2 tabs daily for 3 days, 1 tab daily for 3 days, 1/2 tab daily for 2 days PREDNISONE 48491869049 No Longer Active Matthew Rangel MD Active TRAMADOL HCL 50 MG ORAL TABLET 1 po tid with ES Tylenol TRAMADOL HCL 34136303953 No Longer Active Matthew Rangel MD Active GABAPENTIN 300 MG ORAL CAPSULE 1 po q hs for nerve pain GABAPENTIN 67109508593 No Longer Active Matthew Rangel MD Active PREDNISONE 20 MG ORAL TABLET 2 tablets today, then 1 tablet days 2 through 4 PREDNISONE 67126395947 No Longer Active Piotr Daley DO Active AZITHROMYCIN 250 MG ORAL TABLET 2 po qd x 1 day, then 1 po qd x 4 days 07/12 AZITHROMYCIN 67212511307 No Longer Active Piotr Daley DO Active IBUPROFEN 800 MG ORAL TABLET 1 tab every 8 hours as needed 07/12 IBUPROFEN 58666448417 No Longer Active Piotr Daley DO Active LOMOTIL 2.5-0.025 MG ORAL TABLET 1 to 2 four times a day as needed for diarrhea DIPHENOXYLATE-ATROPINE 62958529941 No Longer Active Piotr Daley DO Active WARFARIN SODIUM 4 MG ORAL TABLET 1 tab every evening WARFARIN SODIUM 14104647959 No Longer Active Piotr Daley DO Active PREDNISONE 20 MG ORAL TABLET 1 tablet twice daily for 2 days, then 1 tablet once daily for 2 days PREDNISONE 93466733786 No Longer Active Piotr Daley DO Active PROMETHAZINE HCL 25 MG ORAL TABLET 1 four times a day as needed for nausea/ vomiting PROMETHAZINE HCL 39664782084 No Longer Active Piotr Daley DO Active TUSSIONEX PENNKINETIC ER 10-8 MG/5ML ORAL SUSPENSION EXTENDED RELEASE 5ml po q12hr PRN Cough HYDROCOD POLST-CHLORPHEN POLST 42943596421 No Longer Active Piotr Daley DO Active AZITHROMYCIN 250 MG ORAL TABLET 2 po qd x 1 day, then 1 po qd x 4 days 10/13 AZITHROMYCIN 83386801516 No Longer Active Piotr Daley DO Active AZITHROMYCIN 250 MG ORAL TABLET 2 po qd x 1 day, then 1 po qd x 4 days 05/07 AZITHROMYCIN 46742030322 No Longer Active Piotr Daley DO Active LISINOPRIL-HYDROCHLOROTHIAZIDE 10-12.5 MG ORAL TABLET 1 tab by mouth daily LISINOPRIL-HYDROCHLOROTHIAZIDE 60604518688 Active Piotr Daley DO Active LISINOPRIL 10 MG ORAL TABLET 1/2-1 tab po every other day LISINOPRIL 37334729302 No Longer Active Piotr Daley DO Active VENTOLIN HFA 108 (90 Base) MCG/ACT INHALATION AEROSOL SOLUTION 2 puffs four times a day PRN cough ALBUTEROL SULFATE 86221556162 No Longer Active Piotr Daley DO Active NYSTATIN-TRIAMCINOLONE 238279-3.1 UNIT/GM-% EXTERNAL CREAM Apply to area BID NYSTATIN-TRIAMCINOLONE 79558904397 No Longer Active Alena Chavira [employer]IVETER Active PHISOHEX 3 % LIQD Use Directed HEXACHLOROPHENE 05479827247 No Longer Active Sandra [place] Active AZITHROMYCIN 250 MG ORAL TABLET 2 po qd x 1 day, then 1 po qd x 4 days 10/21 AZITHROMYCIN 82253531865 No Longer Active Katrina Rinaldi MD PhD Active AZITHROMYCIN 250 MG ORAL TABLET 2 po qd x 1 day, then 1 po qd x 4 days 10/16 AZITHROMYCIN 32180169373 No Longer Active Piotr Daley DO Active AZITHROMYCIN 500 MG INTRAVENOUS SOLUTION RECONSTITUTED 1 po q day AZITHROMYCIN 15290812796 No Longer Active Piotr Daley DO Active NYSTATIN-TRIAMCINOLONE 391110-7.1 UNIT/GM-% EXTERNAL CREAM apply bid NYSTATIN-TRIAMCINOLONE 72999651755 No Longer Active Piotr Daley DO Active IBUPROFEN 800 MG ORAL TABLET 1 po q 8 hours prn pain sparinly IBUPROFEN 95095961324 No Longer Active Piotr Daley DO Active VITAMIN D3 5000 UNIT ORAL CAPSULE 1 po daily CHOLECALCIFEROL 71789346307 Active Piotr Daley DO Active IBUPROFEN 800 MG ORAL TABLET 1 po q 8 hours prn pain sparinly IBUPROFEN 800 MG ORAL TABLET 500905 IBUPROFEN Inactive NYSTATIN-TRIAMCINOLONE 743550-9.1 UNIT/GM-% EXTERNAL CREAM apply bid NYSTATIN-TRIAMCINOLONE 068431-3.1 UNIT/GM-% EXTERNAL CREAM 7831791 NYSTATIN-TRIAMCINOLONE Inactive AZITHROMYCIN 500 MG INTRAVENOUS SOLUTION RECONSTITUTED 1 po q day AZITHROMYCIN 500 MG INTRAVENOUS SOLUTION RECONSTITUTED 08780552642 AZITHROMYCIN Inactive VENTOLIN HFA 108 (90 Base) MCG/ACT INHALATION AEROSOL SOLUTION 2 puffs four times a day PRN cough VENTOLIN HFA 108 (90 Base) MCG/ ACT INHALATION AEROSOL SOLUTION ALBUTEROL SULFATE Inactive LISINOPRIL 10 MG ORAL TABLET 1/2-1 tab po every other day LISINOPRIL 10 MG ORAL TABLET 415724 LISINOPRIL Inactive TUSSIONEX PENNKINETIC ER 10-8 MG/5ML ORAL SUSPENSION EXTENDED RELEASE 5ml po q12hr PRN Cough TUSSIONEX PENNKINETIC ER 10-8 MG/5ML ORAL SUSPENSION EXTENDED RELEASE HYDROCOD POLST-CHLORPHEN POLST Inactive PROMETHAZINE HCL 25 MG ORAL TABLET 1 four times a day as needed for nausea/ vomiting PROMETHAZINE HCL 25 MG ORAL TABLET 680299 PROMETHAZINE HCL Inactive PREDNISONE 20 MG ORAL TABLET 1 tablet twice daily for 2 days, then 1 tablet once daily for 2 days PREDNISONE 20 MG ORAL TABLET 307993 PREDNISONE Inactive WARFARIN SODIUM 4 MG ORAL TABLET 1 tab every evening WARFARIN SODIUM 4 MG ORAL TABLET 998083 WARFARIN SODIUM Inactive LOMOTIL 2.5-0.025 MG ORAL TABLET 1 to 2 four times a day as needed for diarrhea LOMOTIL 2.5-0.025 MG ORAL TABLET 9412551 DIPHENOXYLATE-ATROPINE Inactive IBUPROFEN 800 MG ORAL TABLET 1 tab every 8 hours as needed 07/12 IBUPROFEN 800 MG ORAL TABLET 761742 IBUPROFEN Inactive PREDNISONE 20 MG ORAL TABLET 2 tablets today, then 1 tablet days 2 through 4 PREDNISONE 20 MG ORAL TABLET 484228 PREDNISONE Inactive GABAPENTIN 300 MG ORAL CAPSULE 1 po q hs for nerve pain GABAPENTIN 300 MG ORAL CAPSULE 798738 GABAPENTIN Inactive TRAMADOL HCL 50 MG ORAL TABLET 1 po tid with ES Tylenol TRAMADOL HCL 50 MG ORAL TABLET 075497 TRAMADOL HCL Inactive PROAIR HFA 108 (90 BASE) MCG/ACT INHALATION AEROSOL SOLUTION 1-2 puffs four times a day as needed PROAIR HFA 108 (90 BASE) MCG/ACT INHALATION AEROSOL SOLUTION ALBUTEROL SULFATE Inactive PREDNISONE 20 MG ORAL TABLET two tabs by mouth today, then one tab by mouth days two and three PREDNISONE 20 MG ORAL TABLET 043844 PREDNISONE Inactive TESSALON PERLES 100 MG ORAL CAPSULE 1-2 tablet by mouth 3 times daily 04/16 TESSALON PERLES 100 MG ORAL CAPSULE 918417 BENZONATATE Inactive PREDNISONE 10 MG ORAL TABLET 1 tablet by mouth daily PREDNISONE 10 MG ORAL TABLET 099473 PREDNISONE Inactive AZITHROMYCIN 250 MG ORAL TABLET 2 po qd x 1 day, then 1 po qd x 4 days 10/16 AZITHROMYCIN 250 MG ORAL TABLET 512756 AZITHROMYCIN Inactive AZITHROMYCIN 250 MG ORAL TABLET 2 po qd x 1 day, then 1 po qd x 4 days 10/21 AZITHROMYCIN 250 MG ORAL TABLET 939918 AZITHROMYCIN Inactive NYSTATIN-TRIAMCINOLONE 529424-9.1 UNIT/GM-% EXTERNAL CREAM Apply to area BID NYSTATIN-TRIAMCINOLONE 472100-7.1 UNIT/GM-% EXTERNAL CREAM 8127705 NYSTATIN-TRIAMCINOLONE Inactive AZITHROMYCIN 250 MG ORAL TABLET 2 po qd x 1 day, then 1 po qd x 4 days 05/07 AZITHROMYCIN 250 MG ORAL TABLET 415473 AZITHROMYCIN Inactive AZITHROMYCIN 250 MG ORAL TABLET 2 po qd x 1 day, then 1 po qd x 4 days 10/13 AZITHROMYCIN 250 MG ORAL TABLET 775168 AZITHROMYCIN Inactive AZITHROMYCIN 250 MG ORAL TABLET 2 po qd x 1 day, then 1 po qd x 4 days 07/12 AZITHROMYCIN 250 MG ORAL TABLET 360166 AZITHROMYCIN Inactive PREDNISONE 20 MG ORAL TABLET 2 tabs daily for 3 days, 1 tab daily for 3 days, 1/2 tab daily for 2 days PREDNISONE 20 MG ORAL TABLET 417500 PREDNISONE Inactive DOXYCYCLINE HYCLATE 100 MG ORAL CAPSULE 1 cap by mouth BID x10 days DOXYCYCLINE HYCLATE 100 MG ORAL CAPSULE 5080364 DOXYCYCLINE HYCLATE Inactive ZITHROMAX 250 MG ORAL TABLET Take two (2 ) tablets day one, then one (1) tablet a day for four (4) more days ZITHROMAX 250 MG ORAL TABLET 731755 AZITHROMYCIN Inactive Advance Directives Directive Description Start [...] Measured Encounters Code Encounter Date Provider Facility CPT-91959 [id number] Vst-Est Level III 14:29:05 CDT Piotr Daley [facility] CPT-14003 Level 3 Est. Patient 15:59:25 DIRECTOR CLINICAL RESEARCH Piotr Daley [facility] CPT-86404 Level 3 Est. Patient 12:33:59 DIRECTOR CLINICAL RESEARCH Piotr Daley [facility] CPT-72842 Level 3 Est. Patient 15:56:17 DIRECTOR CLINICAL RESEARCH Piotr Daley [facility] CPT-10366 Level 3 Est. Patient 10:34:54 DIRECTOR CLINICAL RESEARCH Piotr Wilson [facility] CPT-49387 Level 3 Est. Patient 17:10:19 CDT Nella Harris APRN [facility] CPT-20278 Level 3 Est. Patient 10:48:17 DIRECTOR CLINICAL RESEARCH Matthew Rangel MD [facility] CPT-77330 Level 4 Est. Patient 17:15:07 DIRECTOR CLINICAL RESEARCH Piotr Daley [facility] CPT-46122 Level 3 Est. Patient 12:46:13 DIRECTOR CLINICAL RESEARCH Piotr Daley [facility] CPT-08560 Level 3 Est. Patient 15:14:31 DIRECTOR CLINICAL RESEARCH Piotr Daley [facility] CPT-86874 Level 3 Est. Patient 09:20:13 DIRECTOR CLINICAL RESEARCH Piotr Daley [facility] CPT-44141 Level 3 Est. Patient 09:49:40 CDT Piotr Wilson [facility] CPT-71102 Level 3 Est. Patient 16:28:11 CDT Piotr Daley [facility] CPT-39115 Level 3 Est. Patient 12:41:58 DIRECTOR CLINICAL RESEARCH Piotr Daley [facility] CPT-35846 Level 3 Est. Patient 09:21:24 CDT Piotr Daley [facility] CPT-48251 Level 3 Est. Patient 09:21:11 CDT Piotr Daley [facility] CPT-63360 Level 3 Est. Patient 11:16:29 DIRECTOR CLINICAL RESEARCH Piotr Daley [facility] CPT-11949 Level 3 Est. Patient 18:40:19 DIRECTOR CLINICAL RESEARCH Piotr Daley [facility] CPT-34004 Level 3 Est. Patient 19:30:50 CDT Piotr Daley [facility] CPT-66588 Level 3 Est. Patient 22:06:44 CDT Katrina Rinaldi MD [facility] CPT-94727 Level 3 Est. Patient 14:20:00 CDT Piotr Katie Daley [facility] CPT-55736 Level 3 Est. Patient 14:15:22 DIRECTOR CLINICAL RESEARCH Piotr Wilson Edi [facility] CPT-50305 Level 3 Est. Patient 20:19:57 DIRECTOR CLINICAL RESEARCH Piotr Daley [facility] CPT-99027 Level 3 Est. Patient 16:44:32 CDT Piotr Katie Edi [facility] CPT-04601 Level 3 Est. Patient 08:48:46 DIRECTOR CLINICAL RESEARCH Piotr Katie Daley [facility] CPT-87619 Level 3 Est. Patient 21:01:21 CDT Piotr Daley [facility] Procedures Code Procedure Name Date Entry Date Standard Description CPT-86615 Sacroiliac jt < 3V - XRAY USE ONLY 16:45:19 DIRECTOR CLINICAL RESEARCH 05/09 CPT-63562 LS spine comp w obliques - XRAY USE ONLY 14:52:26 DIRECTOR CLINICAL RESEARCH CPT-53974 Chest, 2 views 12:55:58 DIRECTOR CLINICAL RESEARCH CPT-G0439 Subsequent Annual Wellness Exam 10:34:52 DIRECTOR CLINICAL RESEARCH CPT-18692 BMP - LAB USE ONLY 17:19:11 DIRECTOR CLINICAL RESEARCH CPT-49837 PT/INR - LAB USE ONLY 17:19:10 DIRECTOR CLINICAL RESEARCH CPT-58206 Venipuncture Draw Fee 17:19:10 DIRECTOR CLINICAL RESEARCH CPT-34039 PT/INR - LAB USE ONLY 08:12:25 DIRECTOR CLINICAL RESEARCH CPT-46232 Venipuncture Draw Fee 08:12:24 DIRECTOR CLINICAL RESEARCH CPT-27493 Venipuncture Draw Fee 11:31:07 DIRECTOR CLINICAL RESEARCH CPT-34987 TPSA - LAB USE ONLY 11:31:07 DIRECTOR CLINICAL RESEARCH CPT-28951 PT/INR - LAB USE ONLY 11:31:07 DIRECTOR CLINICAL RESEARCH CPT-G0439 Subsequent Annual Wellness Exam 09:59:29 DIRECTOR CLINICAL RESEARCH CPT-74567 Creatinine - LAB USE ONLY 14:37:55 DIRECTOR CLINICAL RESEARCH CPT-05571 PT/INR - LAB USE ONLY 14:37:55 DIRECTOR CLINICAL RESEARCH CPT-39145 Venipuncture Draw Fee 14:37:55 DIRECTOR CLINICAL RESEARCH CPT-41883 LS spine comp w obliques - XRAY USE ONLY 12:59:25 DIRECTOR CLINICAL RESEARCH CPT-13300 PT/INR - LAB USE ONLY 13:49:20 CDT CPT-11483 Venipuncture Draw Fee 13:49:19 CDT CPT-33344 PT/INR - LAB USE ONLY 15:48:49 CDT CPT-07025 Venipuncture Draw Fee 15:48:49 CDT CPT-37791 Venipuncture Draw Fee 11:31:59 CDT CPT-43847 PT/INR - LAB USE ONLY 11:31:59 CDT CPT-79050 Venipuncture Draw Fee 13:29:15 CDT CPT-79493 Thoracolumbar AP/Lat 15:19:19 DIRECTOR CLINICAL RESEARCH CPT-G0438 Initial Annual Wellness Exam 12:18:54 DIRECTOR CLINICAL RESEARCH CPT-30552 Knee 3V 09:57:38 CDT CPT-OV Office Visit 15:45:01 DIRECTOR CLINICAL RESEARCH CPT-62200 Abd compl w upright 17:10:25 CDT
--- OUTSIDE RECORDS SUMMARY | 2018-07-18 09:02 | XMS REPORT | Clinical Summary ---
Author Author Admin, Bita Organization [employer] Address Unknown Phone Unavailable Allergies, Adverse [...] Coronary atherosclerosis of unspecified type of vessel, kaw or graft Back pain, thoracic region, left 724.1 Inactive Piotr Katie Edi DO Pain in thoracic spine Thoracic back pain 724.5 Resolved Piotr Katie Edi DO Backache, unspecified Back pain lumbar 724.2 Resolved Piotr Katie Edi DO Lumbago Peripheral neuropathy, lower extremity, left 356.9 Active 02/19 Pitor Katie Edi DO Unspecified hereditary and idiopathic [...] Right leg pain ICD-729.5 Inactive Sirisha Chen EMERGENCY CARE ATTENDANT Bronchitis-Acute ICD-466.0 Inactive Sirisha Chen EMERGENCY CARE ATTENDANT Knee pain, left ICD-719.46 Inactive Sirisha Chen EMERGENCY CARE ATTENDANT Actinic keratoses ICD-702.0 Inactive Sirisha Chen EMERGENCY CARE ATTENDANT Back pain, thoracic region, left ICD-724.1 Inactive Piotr Daley DO Thoracic back pain ICD-724.5 Inactive Sirisha Chen EMERGENCY CARE ATTENDANT Back pain lumbar ICD-724.2 Inactive Sirisha Chen EMERGENCY CARE ATTENDANT Insect bite ICD-919.4 Inactive Sirisha Chen EMERGENCY CARE ATTENDANT Pruritus ICD-698.9 Inactive Sirisha Chen EMERGENCY CARE ATTENDANT 04/09 FLANK PAIN, RIGHT ICD-789.09 Inactive Katrina Rinaldi MD PhD Bronchitis-Acute ICD-466.0 Inactive Sirisha Chen EMERGENCY CARE ATTENDANT Dyspnea ICD-786.09 Inactive Sirisha Chen EMERGENCY CARE ATTENDANT 05/09 Medication List Medication Instructions Start Date Stop Date Generic Name NDC Status Provider Patient Instruction NYSTATIN 473510 UNIT/GM EXTERNAL CREAM Apply to rash 2-3 times a day and may repeat as needed NYSTATIN 18713090864 Active Sirisha Chen EMERGENCY CARE ATTENDANT Active TRIAMCINOLONE ACETONIDE 0.1 % EXTERNAL CREAM apply bid sparingly to rash 2017 TRIAMCINOLONE ACETONIDE 56712158240 Active Sirisha Chen EMERGENCY CARE ATTENDANT Active WARFARIN SODIUM 4 MG ORAL TABLET 1 tablet by mouth daily WARFARIN SODIUM 13494179208 Active Piotr Daley DO Active MELOXICAM 15 MG ORAL TABLET 1 po q day for pain with food MELOXICAM 56588476106 Active Piotr Daley DO Active PREDNISONE 10 MG ORAL TABLET 1 tablet by mouth daily PREDNISONE 49505877659 No Longer Active Emelyn Norris Active TESSALON PERLES 100 MG ORAL CAPSULE 1-2 tablet by mouth 3 times daily 04/16 BENZONATATE 26114289895 No Longer Active Emelyn Norris Active PREDNISONE 20 MG ORAL TABLET two tabs by mouth today, then one tab by mouth days two and three PREDNISONE 99944153307 No Longer Active Piotr Daley DO Active CYCLOBENZAPRINE HCL 10 MG ORAL TABLET 1 tablet by mouth three times daily as needed for muscle spasm/pain CYCLOBENZAPRINE HCL 26748225556 Active Sirisha Chen LPN Active ZITHROMAX 250 MG ORAL TABLET Take two (2 ) tablets day one, then one (1) tablet a day for four (4) more days AZITHROMYCIN 16668503813 No Longer Active Piotr Daley DO Active PROAIR HFA 108 (90 BASE) MCG/ACT INHALATION AEROSOL SOLUTION 1-2 puffs four times a day as needed ALBUTEROL SULFATE 70197024904 No Longer Active Emelyn Norris Active DOXYCYCLINE HYCLATE 100 MG ORAL CAPSULE 1 cap by mouth BID x10 days DOXYCYCLINE HYCLATE 19547201961 No Longer Active Nella Harris APRN Active PREDNISONE 20 MG ORAL TABLET 2 tabs daily for 3 days, 1 tab daily for 3 days, 1/2 tab daily for 2 days PREDNISONE 95291368478 No Longer Active Matthew Rangel MD Active TRAMADOL HCL 50 MG ORAL TABLET 1 po tid with ES Tylenol TRAMADOL HCL 76822938592 No Longer Active Matthew Rangel MD Active GABAPENTIN 300 MG ORAL CAPSULE 1 po q hs for nerve pain GABAPENTIN 46610953490 No Longer Active Matthew Rangel MD Active PREDNISONE 20 MG ORAL TABLET 2 tablets today, then 1 tablet days 2 through 4 PREDNISONE 84450118093 No Longer Active Piotr Daley DO Active AZITHROMYCIN 250 MG ORAL TABLET 2 po qd x 1 day, then 1 po qd x 4 days 07/12 AZITHROMYCIN 55553800248 No Longer Active Piotr Daley DO Active IBUPROFEN 800 MG ORAL TABLET 1 tab every 8 hours as needed 07/12 IBUPROFEN 90383614791 No Longer Active Piotr Daley DO Active LOMOTIL 2.5-0.025 MG ORAL TABLET 1 to 2 four times a day as needed for diarrhea DIPHENOXYLATE-ATROPINE 91483132186 No Longer Active Piotr Daley DO Active WARFARIN SODIUM 4 MG ORAL TABLET 1 tab every evening WARFARIN SODIUM 18502029494 No Longer Active Piotr Daley DO Active PREDNISONE 20 MG ORAL TABLET 1 tablet twice daily for 2 days, then 1 tablet once daily for 2 days PREDNISONE 24245553215 No Longer Active Piotr Daley DO Active PROMETHAZINE HCL 25 MG ORAL TABLET 1 four times a day as needed for nausea/ vomiting PROMETHAZINE HCL 90230942056 No Longer Active Piotr Daley DO Active TUSSIONEX PENNKINETIC ER 10-8 MG/5ML ORAL SUSPENSION EXTENDED RELEASE 5ml po q12hr PRN Cough HYDROCOD POLST-CHLORPHEN POLST 41557760796 No Longer Active Piotr Daley DO Active AZITHROMYCIN 250 MG ORAL TABLET 2 po qd x 1 day, then 1 po qd x 4 days 10/13 AZITHROMYCIN 41483812335 No Longer Active Piotr Daley DO Active AZITHROMYCIN 250 MG ORAL TABLET 2 po qd x 1 day, then 1 po qd x 4 days 05/07 AZITHROMYCIN 05907813528 No Longer Active Piotr Daley DO Active LISINOPRIL-HYDROCHLOROTHIAZIDE 10-12.5 MG ORAL TABLET 1 tab by mouth daily LISINOPRIL-HYDROCHLOROTHIAZIDE 91619023958 Active Piotr Daley DO Active LISINOPRIL 10 MG ORAL TABLET 1/2-1 tab po every other day LISINOPRIL 77987491194 No Longer Active Piotr Daley DO Active VENTOLIN HFA 108 (90 Base) MCG/ACT INHALATION AEROSOL SOLUTION 2 puffs four times a day PRN cough ALBUTEROL SULFATE 85771101511 No Longer Active Piotr Dlaey DO Active NYSTATIN-TRIAMCINOLONE 262569-4.1 UNIT/GM-% EXTERNAL CREAM Apply to area BID NYSTATIN-TRIAMCINOLONE 70191503706 No Longer Active Alena Chavira EMERGENCY CARE ATTENDANT Active PHISOHEX 3 % LIQD Use Directed HEXACHLOROPHENE 16594868062 No Longer Active Sandra [place]aven Active AZITHROMYCIN 250 MG ORAL TABLET 2 po qd x 1 day, then 1 po qd x 4 days 10/21 AZITHROMYCIN 42608783504 No Longer Active Katrina Rinaldi MD PhD Active AZITHROMYCIN 250 MG ORAL TABLET 2 po qd x 1 day, then 1 po qd x 4 days 10/16 AZITHROMYCIN 25365454702 No Longer Active Piotr Daley DO Active AZITHROMYCIN 500 MG INTRAVENOUS SOLUTION RECONSTITUTED 1 po q day AZITHROMYCIN 64796535707 No Longer Active Piotr Daley DO Active NYSTATIN-TRIAMCINOLONE 794855-6.1 UNIT/GM-% EXTERNAL CREAM apply bid NYSTATIN-TRIAMCINOLONE 41813952834 No Longer Active Piotr Daley DO Active IBUPROFEN 800 MG ORAL TABLET 1 po q 8 hours prn pain sparinly IBUPROFEN 44363672793 No Longer Active Piotr Daley DO Active VITAMIN D3 5000 UNIT ORAL CAPSULE 1 po daily CHOLECALCIFEROL 21075385137 Active Piotr Daley DO Active IBUPROFEN 800 MG ORAL TABLET 1 po q 8 hours prn pain sparinly IBUPROFEN 800 MG ORAL TABLET 640396 IBUPROFEN Inactive NYSTATIN-TRIAMCINOLONE 626173-4.1 UNIT/GM-% EXTERNAL CREAM apply bid NYSTATIN-TRIAMCINOLONE 312889-7.1 UNIT/GM-% EXTERNAL CREAM 6411439 NYSTATIN-TRIAMCINOLONE Inactive AZITHROMYCIN 500 MG INTRAVENOUS SOLUTION RECONSTITUTED 1 po q day AZITHROMYCIN 500 MG INTRAVENOUS SOLUTION RECONSTITUTED 28486527518 AZITHROMYCIN Inactive VENTOLIN HFA 108 (90 Base) MCG/ACT INHALATION AEROSOL SOLUTION 2 puffs four times a day PRN cough VENTOLIN HFA 108 (90 Base) MCG/ ACT INHALATION AEROSOL SOLUTION ALBUTEROL SULFATE Inactive LISINOPRIL 10 MG ORAL TABLET 1/2-1 tab po every other day LISINOPRIL 10 MG ORAL TABLET 260723 LISINOPRIL Inactive TUSSIONEX PENNKINETIC ER 10-8 MG/5ML ORAL SUSPENSION EXTENDED RELEASE 5ml po q12hr PRN Cough TUSSIONEX PENNKINETIC ER 10-8 MG/5ML ORAL SUSPENSION EXTENDED RELEASE HYDROCOD POLST-CHLORPHEN POLST Inactive PROMETHAZINE HCL 25 MG ORAL TABLET 1 four times a day as needed for nausea/ vomiting PROMETHAZINE HCL 25 MG ORAL TABLET 897237 PROMETHAZINE HCL Inactive PREDNISONE 20 MG ORAL TABLET 1 tablet twice daily for 2 days, then 1 tablet once daily for 2 days PREDNISONE 20 MG ORAL TABLET 697341 PREDNISONE Inactive WARFARIN SODIUM 4 MG ORAL TABLET 1 tab every evening WARFARIN SODIUM 4 MG ORAL TABLET 546263 WARFARIN SODIUM Inactive LOMOTIL 2.5-0.025 MG ORAL TABLET 1 to 2 four times a day as needed for diarrhea LOMOTIL 2.5-0.025 MG ORAL TABLET 1429958 DIPHENOXYLATE-ATROPINE Inactive IBUPROFEN 800 MG ORAL TABLET 1 tab every 8 hours as needed 07/12 IBUPROFEN 800 MG ORAL TABLET 549968 IBUPROFEN Inactive PREDNISONE 20 MG ORAL TABLET 2 tablets today, then 1 tablet days 2 through 4 PREDNISONE 20 MG ORAL TABLET 855994 PREDNISONE Inactive GABAPENTIN 300 MG ORAL CAPSULE 1 po q hs for nerve pain GABAPENTIN 300 MG ORAL CAPSULE 100023 GABAPENTIN Inactive TRAMADOL HCL 50 MG ORAL TABLET 1 po tid with ES Tylenol TRAMADOL HCL 50 MG ORAL TABLET 238507 TRAMADOL HCL Inactive PROAIR HFA 108 (90 BASE) MCG/ACT INHALATION AEROSOL SOLUTION 1-2 puffs four times a day as needed PROAIR HFA 108 (90 BASE) MCG/ACT INHALATION AEROSOL SOLUTION ALBUTEROL SULFATE Inactive PREDNISONE 20 MG ORAL TABLET two tabs by mouth today, then one tab by mouth days two and three PREDNISONE 20 MG ORAL TABLET 344820 PREDNISONE Inactive TESSALON PERLES 100 MG ORAL CAPSULE 1-2 tablet by mouth 3 times daily 04/16 TESSALON PERLES 100 MG ORAL CAPSULE 818240 BENZONATATE Inactive PREDNISONE 10 MG ORAL TABLET 1 tablet by mouth daily PREDNISONE 10 MG ORAL TABLET 119828 PREDNISONE Inactive AZITHROMYCIN 250 MG ORAL TABLET 2 po qd x 1 day, then 1 po qd x 4 days 10/16 AZITHROMYCIN 250 MG ORAL TABLET 674626 AZITHROMYCIN Inactive AZITHROMYCIN 250 MG ORAL TABLET 2 po qd x 1 day, then 1 po qd x 4 days 10/21 AZITHROMYCIN 250 MG ORAL TABLET 398557 AZITHROMYCIN Inactive NYSTATIN-TRIAMCINOLONE 016541-7.1 UNIT/GM-% EXTERNAL CREAM Apply to area BID NYSTATIN-TRIAMCINOLONE 494589-4.1 UNIT/GM-% EXTERNAL CREAM 5003586 NYSTATIN-TRIAMCINOLONE Inactive AZITHROMYCIN 250 MG ORAL TABLET 2 po qd x 1 day, then 1 po qd x 4 days 05/07 AZITHROMYCIN 250 MG ORAL TABLET 968613 AZITHROMYCIN Inactive AZITHROMYCIN 250 MG ORAL TABLET 2 po qd x 1 day, then 1 po qd x 4 days 10/13 AZITHROMYCIN 250 MG ORAL TABLET 185965 AZITHROMYCIN Inactive AZITHROMYCIN 250 MG ORAL TABLET 2 po qd x 1 day, then 1 po qd x 4 days 07/12 AZITHROMYCIN 250 MG ORAL TABLET 811736 AZITHROMYCIN Inactive PREDNISONE 20 MG ORAL TABLET 2 tabs daily for 3 days, 1 tab daily for 3 days, 1/2 tab daily for 2 days PREDNISONE 20 MG ORAL TABLET 144817 PREDNISONE Inactive DOXYCYCLINE HYCLATE 100 MG ORAL CAPSULE 1 cap by mouth BID x10 days DOXYCYCLINE HYCLATE 100 MG ORAL CAPSULE 1184207 DOXYCYCLINE HYCLATE Inactive ZITHROMAX 250 MG ORAL TABLET Take two (2 ) tablets day one, then one (1) tablet a day for four (4) more days ZITHROMAX 250 MG ORAL TABLET 450270 AZITHROMYCIN Inactive Advance Directives Directive Description Start [...] Measured Encounters Code Encounter Date Provider Facility CPT-78652 [id number] Vst-Est Level III 14:29:05 CDT Piotr Daley [facility] CPT-82414 Level 3 Est. Patient 15:59:25 GARBAGE PERSON Piotr Daley [facility] CPT-22105 Level 3 Est. Patient 12:33:59 GARBAGE PERSON Piotr Daley [facility] CPT-58594 Level 3 Est. Patient 15:56:17 GARBAGE PERSON Piotr Daley [facility] CPT-38846 Level 3 Est. Patient 10:34:54 GARBAGE PERSON Piotr [facility] CPT-59681 Level 3 Est. Patient 17:10:19 CDT Nella Harris APRN [facility] CPT-77591 Level 3 Est. Patient 10:48:17 GARBAGE PERSON Matthew Rangel MD [facility] CPT-26803 Level 4 Est. Patient 17:15:07 GARBAGE PERSON Piotr Daley [facility] CPT-01938 Level 3 Est. Patient 12:46:13 GARBAGE PERSON Piotr Daley [facility] CPT-84505 Level 3 Est. Patient 15:14:31 GARBAGE PERSON Piotr Daley [facility] CPT-79617 Level 3 Est. Patient 09:20:13 GARBAGE PERSON Piotr Daley [facility] CPT-70385 Level 3 Est. Patient 09:49:40 CDT Piotr [facility] CPT-27748 Level 3 Est. Patient 16:28:11 CDT Piotr Daley [facility] CPT-08260 Level 3 Est. Patient 12:41:58 GARBAGE PERSON Piotr Daley [facility] CPT-01751 Level 3 Est. Patient 09:21:24 CDT Piotr Daley [facility] CPT-34077 Level 3 Est. Patient 09:21:11 CDT Piotr Daley [facility] CPT-06327 Level 3 Est. Patient 11:16:29 GARBAGE PERSON Piotr Daley [facility] CPT-24096 Level 3 Est. Patient 18:40:19 GARBAGE PERSON Piotr Daley [facility] CPT-84935 Level 3 Est. Patient 19:30:50 CDT Piotr Daley [facility] CPT-98190 Level 3 Est. Patient 22:06:44 CDT Katrina Rinaldi MD [facility] CPT-64585 Level 3 Est. Patient 14:20:00 CDT Piotr Katie Daley [facility] CPT-52786 Level 3 Est. Patient 14:15:22 GARBAGE PERSON Piotr Wilson Edi [facility] CPT-34817 Level 3 Est. Patient 20:19:57 GARBAGE PERSON Piotr Daley [facility] CPT-48978 Level 3 Est. Patient 16:44:32 CDT Piotr Katie Edi [facility] CPT-04647 Level 3 Est. Patient 08:48:46 GARBAGE PERSON Piotr Katie Daley [facility] CPT-64596 Level 3 Est. Patient 21:01:21 CDT Piotr Daley [facility] Procedures Code Procedure Name Date Entry Date Standard Description CPT-78226 Sacroiliac jt < 3V - XRAY USE ONLY 16:45:19 GARBAGE PERSON 05/09 CPT-28880 LS spine comp w obliques - XRAY USE ONLY 14:52:26 GARBAGE PERSON CPT-96973 Chest, 2 views 12:55:58 GARBAGE PERSON CPT-G0439 Subsequent Annual Wellness Exam 10:34:52 GARBAGE PERSON CPT-02392 BMP - LAB USE ONLY 17:19:11 GARBAGE PERSON CPT-35863 PT/INR - LAB USE ONLY 17:19:10 GARBAGE PERSON CPT-42107 Venipuncture Draw Fee 17:19:10 GARBAGE PERSON CPT-36391 PT/INR - LAB USE ONLY 08:12:25 GARBAGE PERSON CPT-51287 Venipuncture Draw Fee 08:12:24 GARBAGE PERSON CPT-02312 Venipuncture Draw Fee 11:31:07 GARBAGE PERSON CPT-96239 TPSA - LAB USE ONLY 11:31:07 GARBAGE PERSON CPT-51527 PT/INR - LAB USE ONLY 11:31:07 GARBAGE PERSON CPT-G0439 Subsequent Annual Wellness Exam 09:59:29 GARBAGE PERSON CPT-71855 Creatinine - LAB USE ONLY 14:37:55 GARBAGE PERSON CPT-53987 PT/INR - LAB USE ONLY 14:37:55 GARBAGE PERSON CPT-84220 Venipuncture Draw Fee 14:37:55 GARBAGE PERSON CPT-61018 LS spine comp w obliques - XRAY USE ONLY 12:59:25 GARBAGE PERSON CPT-05236 PT/INR - LAB USE ONLY 13:49:20 CDT CPT-31819 Venipuncture Draw Fee 13:49:19 CDT CPT-14458 PT/INR - LAB USE ONLY 15:48:49 CDT CPT-15349 Venipuncture Draw Fee 15:48:49 CDT CPT-53095 Venipuncture Draw Fee 11:31:59 CDT CPT-30089 PT/INR - LAB USE ONLY 11:31:59 CDT CPT-27730 Venipuncture Draw Fee 13:29:15 CDT CPT-18082 Thoracolumbar AP/Lat 15:19:19 GARBAGE PERSON CPT-G0438 Initial Annual Wellness Exam 12:18:54 GARBAGE PERSON CPT-27548 Knee 3V 09:57:38 CDT CPT-OV Office Visit 15:45:01 GARBAGE PERSON CPT-35369 Abd compl w upright 17:10:25 CDT
--- OUTSIDE RECORDS SUMMARY | 2018-07-18 09:03 | XMS REPORT | Clinical Summary ---
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 Right leg pain ICD-729.5 Inactive Sirisha Chen CROSS TIE TRAM LOADER Bronchitis-Acute ICD-466.0 Inactive Sirisha Chen CROSS TIE TRAM LOADER Knee pain, left ICD-719.46 Inactive Sirisha Chen CROSS TIE TRAM LOADER Actinic keratoses ICD-702.0 Inactive Sirisha Chen CROSS TIE TRAM LOADER Back pain, thoracic region, left ICD-724.1 Inactive Piotr Daley DO Thoracic back pain ICD-724.5 Inactive Sirisha Chen CROSS TIE TRAM LOADER Back pain lumbar ICD-724.2 Inactive Sirisha Chen CROSS TIE TRAM LOADER Insect bite ICD-919.4 Inactive Sirisha Chen CROSS TIE TRAM LOADER Pruritus ICD-698.9 Inactive Sirisha Chen CROSS TIE TRAM LOADER 04/09 Bronchitis-Acute ICD-466.0 Inactive Sirisha Chen CROSS TIE TRAM LOADER Dyspnea ICD-786.09 Inactive Sirisha Chen CROSS TIE TRAM LOADER 05/09 Medication List Medication Instructions Start Date Stop Date Generic Name ND Status Provider Patient Instruction NYSTATIN 759699 UNIT/GM EXTERNAL CREAM Apply to rash 2-3 times a day and may repeat as needed NYSTATIN 79288453815 Active Sirisha Chen CROSS TIE TRAM LOADER Active TRIAMCINOLONE ACETONIDE 0.1 % EXTERNAL CREAM apply bid sparingly to rash 2017 TRIAMCINOLONE ACETONIDE 40239560383 Active Sirisha Chen CROSS TIE TRAM LOADER Active WARFARIN SODIUM 4 MG ORAL TABLET 1 tablet by mouth daily WARFARIN SODIUM 93319927516 Active Sirisha Chen CROSS TIE TRAM LOADER Active MELOXICAM 15 MG ORAL TABLET 1 po q day for pain with food MELOXICAM 47469557362 Active Piotr Daley DO Active PREDNISONE 10 MG ORAL TABLET 1 tablet by mouth daily PREDNISONE 49581022809 No Longer Active Emelyn Norris Active TESSALON PERLES 100 MG ORAL CAPSULE 1-2 tablet by mouth 3 times daily 04/16 BENZONATATE 21509141445 No Longer Active Emelyn Norris Active PREDNISONE 20 MG ORAL TABLET two tabs by mouth today, then one tab by mouth days two and three PREDNISONE 16044978178 No Longer Active Piotr Daley DO Active CYCLOBENZAPRINE HCL 10 MG ORAL TABLET 1 tablet by mouth three times daily as needed for muscle spasm/pain CYCLOBENZAPRINE HCL 72754651268 Active Sirisha Chen LPN Active ZITHROMAX 250 MG ORAL TABLET Take two (2 ) tablets day one, then one (1) tablet a day for four (4) more days AZITHROMYCIN 39989186670 No Longer Active Piotr Daley DO Active PROAIR HFA 108 (90 BASE) MCG/ACT INHALATION AEROSOL SOLUTION 1-2 puffs four times a day as needed ALBUTEROL SULFATE 77495973058 No Longer Active Emelyn Norris Active DOXYCYCLINE HYCLATE 100 MG ORAL CAPSULE 1 cap by mouth BID x10 days DOXYCYCLINE HYCLATE 28665100842 No Longer Active Nella Harris APRN Active PREDNISONE 20 MG ORAL TABLET 2 tabs daily for 3 days, 1 tab daily for 3 days, 1/2 tab daily for 2 days PREDNISONE 36263922207 No Longer Active Matthew Rangel MD Active TRAMADOL HCL 50 MG ORAL TABLET 1 po tid with ES Tylenol TRAMADOL HCL 27973870644 No Longer Active Matthew Rangel MD Active GABAPENTIN 300 MG ORAL CAPSULE 1 po q hs for nerve pain GABAPENTIN 47534811967 No Longer Active Matthew Rangel MD Active PREDNISONE 20 MG ORAL TABLET 2 tablets today, then 1 tablet days 2 through 4 PREDNISONE 53394350765 No Longer Active Piotr Daley DO Active AZITHROMYCIN 250 MG ORAL TABLET 2 po qd x 1 day, then 1 po qd x 4 days 07/12 AZITHROMYCIN 21358534140 No Longer Active Piotr Daley DO Active IBUPROFEN 800 MG ORAL TABLET 1 tab every 8 hours as needed 07/12 IBUPROFEN 00283148080 No Longer Active Piotr Daley DO Active LOMOTIL 2.5-0.025 MG ORAL TABLET 1 to 2 four times a day as needed for diarrhea DIPHENOXYLATE-ATROPINE 34034676750 No Longer Active Piotr Daley DO Active WARFARIN SODIUM 4 MG ORAL TABLET 1 tab every evening WARFARIN SODIUM 07719412681 No Longer Active Piotr Daley DO Active PREDNISONE 20 MG ORAL TABLET 1 tablet twice daily for 2 days, then 1 tablet once daily for 2 days PREDNISONE 05492934650 No Longer Active Piotr Daley DO Active PROMETHAZINE HCL 25 MG ORAL TABLET 1 four times a day as needed for nausea/ vomiting PROMETHAZINE HCL 42738850805 No Longer Active Piotr Daley DO Active TUSSIONEX PENNKINETIC ER 10-8 MG/5ML ORAL SUSPENSION EXTENDED RELEASE 5ml po q12hr PRN Cough HYDROCOD POLST-CHLORPHEN POLST 92642547692 No Longer Active Piotr Daley DO Active AZITHROMYCIN 250 MG ORAL TABLET 2 po qd x 1 day, then 1 po qd x 4 days 10/13 AZITHROMYCIN 35426873696 No Longer Active Piotr Daley DO Active AZITHROMYCIN 250 MG ORAL TABLET 2 po qd x 1 day, then 1 po qd x 4 days 05/07 AZITHROMYCIN 14792613890 No Longer Active Piotr Daley DO Active LISINOPRIL-HYDROCHLOROTHIAZIDE 10-12.5 MG ORAL TABLET 1 tab by mouth daily LISINOPRIL-HYDROCHLOROTHIAZIDE 87738735489 Active Piotr Daley DO Active LISINOPRIL 10 MG ORAL TABLET 1/2-1 tab po every other day LISINOPRIL 13146787424 No Longer Active Piotr Daley DO Active VENTOLIN HFA 108 (90 Base) MCG/ACT INHALATION AEROSOL SOLUTION 2 puffs four times a day PRN cough ALBUTEROL SULFATE 12185664927 No Longer Active Piotr Daley DO Active NYSTATIN-TRIAMCINOLONE 555339-9.1 UNIT/GM-% EXTERNAL CREAM Apply to area BID NYSTATIN-TRIAMCINOLONE 70084403979 No Longer Active Alena Chavira CROSS TIE TRAM LOADER Active PHISOHEX 3 % LIQD Use Directed HEXACHLOROPHENE 48521708521 No Longer Active Sandra Granger Active AZITHROMYCIN 250 MG ORAL TABLET 2 po qd x 1 day, then 1 po qd x 4 days 10/21 AZITHROMYCIN 45890250422 No Longer Active Katrina Rinaldi MD PhD Active AZITHROMYCIN 250 MG ORAL TABLET 2 po qd x 1 day, then 1 po qd x 4 days 10/16 AZITHROMYCIN 22711403647 No Longer Active Piotr Daley DO Active AZITHROMYCIN 500 MG INTRAVENOUS SOLUTION RECONSTITUTED 1 po q day AZITHROMYCIN 20898212382 No Longer Active Piotr Daley DO Active NYSTATIN-TRIAMCINOLONE 566059-5.1 UNIT/GM-% EXTERNAL CREAM apply bid NYSTATIN-TRIAMCINOLONE 95924412665 No Longer Active Piotr Daley DO Active IBUPROFEN 800 MG ORAL TABLET 1 po q 8 hours prn pain sparinly IBUPROFEN 72585487920 No Longer Active Piotr Daley DO Active VITAMIN D3 5000 UNIT ORAL CAPSULE 1 po daily CHOLECALCIFEROL 81305606702 Active Piotr Daley DO Active IBUPROFEN 800 MG ORAL TABLET 1 po q 8 hours prn pain sparinly IBUPROFEN 800 MG ORAL TABLET 768371 IBUPROFEN Inactive NYSTATIN-TRIAMCINOLONE 666739-1.1 UNIT/GM-% EXTERNAL CREAM apply bid NYSTATIN-TRIAMCINOLONE 424283-6.1 UNIT/GM-% EXTERNAL CREAM 6785914 NYSTATIN-TRIAMCINOLONE Inactive AZITHROMYCIN 500 MG INTRAVENOUS SOLUTION RECONSTITUTED 1 po q day AZITHROMYCIN 500 MG INTRAVENOUS SOLUTION RECONSTITUTED 03987374577 AZITHROMYCIN Inactive VENTOLIN HFA 108 (90 Base) MCG/ACT INHALATION AEROSOL SOLUTION 2 puffs four times a day PRN cough VENTOLIN HFA 108 (90 Base) MCG/ ACT INHALATION AEROSOL SOLUTION ALBUTEROL SULFATE Inactive LISINOPRIL 10 MG ORAL TABLET 1/2-1 tab po every other day LISINOPRIL 10 MG ORAL TABLET 742655 LISINOPRIL Inactive TUSSIONEX PENNKINETIC ER 10-8 MG/5ML ORAL SUSPENSION EXTENDED RELEASE 5ml po q12hr PRN Cough TUSSIONEX PENNKINETIC ER 10-8 MG/5ML ORAL SUSPENSION EXTENDED RELEASE HYDROCOD POLST-CHLORPHEN POLST Inactive PROMETHAZINE HCL 25 MG ORAL TABLET 1 four times a day as needed for nausea/ vomiting PROMETHAZINE HCL 25 MG ORAL TABLET 205965 PROMETHAZINE HCL Inactive PREDNISONE 20 MG ORAL TABLET 1 tablet twice daily for 2 days, then 1 tablet once daily for 2 days PREDNISONE 20 MG ORAL TABLET 012780 PREDNISONE Inactive WARFARIN SODIUM 4 MG ORAL TABLET 1 tab every evening WARFARIN SODIUM 4 MG ORAL TABLET 595120 WARFARIN SODIUM Inactive LOMOTIL 2.5-0.025 MG ORAL TABLET 1 to 2 four times a day as needed for diarrhea LOMOTIL 2.5-0.025 MG ORAL TABLET 3208045 DIPHENOXYLATE-ATROPINE Inactive IBUPROFEN 800 MG ORAL TABLET 1 tab every 8 hours as needed 07/12 IBUPROFEN 800 MG ORAL TABLET 764991 IBUPROFEN Inactive PREDNISONE 20 MG ORAL TABLET 2 tablets today, then 1 tablet days 2 through 4 PREDNISONE 20 MG ORAL TABLET 817214 PREDNISONE Inactive GABAPENTIN 300 MG ORAL CAPSULE 1 po q hs for nerve pain GABAPENTIN 300 MG ORAL CAPSULE 648752 GABAPENTIN Inactive TRAMADOL HCL 50 MG ORAL TABLET 1 po tid with ES Tylenol TRAMADOL HCL 50 MG ORAL TABLET 483688 TRAMADOL HCL Inactive PROAIR HFA 108 (90 BASE) MCG/ACT INHALATION AEROSOL SOLUTION 1-2 puffs four times a day as needed PROAIR HFA 108 (90 BASE) MCG/ACT INHALATION AEROSOL SOLUTION ALBUTEROL SULFATE Inactive PREDNISONE 20 MG ORAL TABLET two tabs by mouth today, then one tab by mouth days two and three PREDNISONE 20 MG ORAL TABLET 703662 PREDNISONE Inactive TESSALON PERLES 100 MG ORAL CAPSULE 1-2 tablet by mouth 3 times daily 04/16 TESSALON PERLES 100 MG ORAL CAPSULE 411457 BENZONATATE Inactive PREDNISONE 10 MG ORAL TABLET 1 tablet by mouth daily PREDNISONE 10 MG ORAL TABLET 574525 PREDNISONE Inactive AZITHROMYCIN 250 MG ORAL TABLET 2 po qd x 1 day, then 1 po qd x 4 days 10/16 AZITHROMYCIN 250 MG ORAL TABLET 238499 AZITHROMYCIN Inactive AZITHROMYCIN 250 MG ORAL TABLET 2 po qd x 1 day, then 1 po qd x 4 days 10/21 AZITHROMYCIN 250 MG ORAL TABLET 622915 AZITHROMYCIN Inactive NYSTATIN-TRIAMCINOLONE 194183-7.1 UNIT/GM-% EXTERNAL CREAM Apply to area BID NYSTATIN-TRIAMCINOLONE 421357-5.1 UNIT/GM-% EXTERNAL CREAM 8300467 NYSTATIN-TRIAMCINOLONE Inactive AZITHROMYCIN 250 MG ORAL TABLET 2 po qd x 1 day, then 1 po qd x 4 days 05/07 AZITHROMYCIN 250 MG ORAL TABLET 572974 AZITHROMYCIN Inactive AZITHROMYCIN 250 MG ORAL TABLET 2 po qd x 1 day, then 1 po qd x 4 days 10/13 AZITHROMYCIN 250 MG ORAL TABLET 627781 AZITHROMYCIN Inactive AZITHROMYCIN 250 MG ORAL TABLET 2 po qd x 1 day, then 1 po qd x 4 days 07/12 AZITHROMYCIN 250 MG ORAL TABLET 744704 AZITHROMYCIN Inactive PREDNISONE 20 MG ORAL TABLET 2 tabs daily for 3 days, 1 tab daily for 3 days, 1/2 tab daily for 2 days PREDNISONE 20 MG ORAL TABLET 133052 PREDNISONE Inactive DOXYCYCLINE HYCLATE 100 MG ORAL CAPSULE 1 cap by mouth BID x10 days DOXYCYCLINE HYCLATE 100 MG ORAL CAPSULE 2968133 DOXYCYCLINE HYCLATE Inactive ZITHROMAX 250 MG ORAL TABLET Take two (2 ) tablets day one, then one (1) tablet a day for four (4) more days ZITHROMAX 250 MG ORAL TABLET 521936 AZITHROMYCIN Inactive Advance Directives Directive Description Start [...] Measured Encounters Code Encounter Date Provider Facility CPT-36162 [id number] Vst-Est Level III 14:29:05 CDT Piotr Wilson [facility] CPT-26068 Level 3 Est. Patient 15:59:25 [employer]OURNEYMAN M[employer]WR[employer] Piotr Daley [facility] CPT-50391 Level 3 Est. Patient 12:33:59 [employer]OURNEYMAN M[employer]WR[employer] Piotr Wilson [facility] CPT-48467 Level 3 Est. Patient 15:56:17 [employer]OURNEYMAN M[employer]WR[employer] Piotr Daley [facility] CPT-62976 Level 3 Est. Patient 10:34:54 [employer] Piotr Wilson [facility] CPT-66631 Level 3 Est. Patient 17:10:19 CDT Nella Harris APRN [facility] CPT-08493 Level 3 Est. Patient 10:48:17 [employer] M[employer] Matthew Rangel MD [facility] CPT-87116 Level 4 Est. Patient 17:15:07 [employer]NEYMAN M[employer] Piotr Daley [facility] CPT-69749 Level 3 Est. Patient 12:46:13 [employer] M[employer]WR[employer] Piotr Daley [facility] CPT-94746 Level 3 Est. Patient 15:14:31 [employer]OURNEYMAN M[employer]WR[employer] Piotr Daley [facility] CPT-76697 Level 3 Est. Patient 09:20:13 [employer]OURNEYMAN M[employer]WR[employer] Piotr Daley [facility] CPT-37757 Level 3 Est. Patient 09:49:40 CDT Piotr Wilson [facility] CPT-38828 Level 3 Est. Patient 16:28:11 CDT Piotr Daley [facility] CPT-06316 Level 3 Est. Patient 12:41:58 [employer]NEYMAN M[employer]WR[employer] Piotr Daley [facility] CPT-18466 Level 3 Est. Patient 09:21:24 CDT Piotr Daley [facility] CPT-16250 Level 3 Est. Patient 09:21:11 CDT Piotr Daley [facility] CPT-65573 Level 3 Est. Patient 11:16:29 JOURNEYMAN M[employer]WR[employer] Piotr Daley [facility] CPT-61206 Level 3 Est. Patient 18:40:19 JOURNEYMAN M[employer]WR[employer] Piotr Daley [facility] CPT-59306 Level 3 Est. Patient 19:30:50 CDT Piotr Daley [facility] CPT-00745 Level 3 Est. Patient 22:06:44 CDT Katrina Rinaldi MD [facility] CPT-44545 Level 3 Est. Patient 14:20:00 CDT Piotr Katie Daley [facility] CPT-10890 Level 3 Est. Patient 14:15:22 [employer]NEYMAN M[employer]WR[employer] Piotr Katie Daley [facility] CPT-90577 Level 3 Est. Patient 20:19:57 [employer] M[employer]WR[employer] Piotr Katie Daley [facility] CPT-84612 Level 3 Est. Patient 16:44:32 CDT Piotr Katie Edi [facility] CPT-77388 Level 3 Est. Patient 08:48:46 [employer]NEYMAN M[employer]WR[employer] Piotr Wilson Edi [facility] CPT-42962 Level 3 Est. Patient 21:01:21 CDT Piotr Daley [facility] Procedures Code Procedure Name Date Entry Date Standard Description CPT-53063 Sacroiliac jt < 3V - XRAY USE ONLY 16:45:19 [employer] M[employer] 05/09 CPT-74834 LS spine comp w obliques - XRAY USE ONLY 14:52:26 [employer] CPT-14856 Chest, 2 views 12:55:58 [employer] CPT-G0439 Subsequent Annual Wellness Exam 10:34:52 [employer] CPT-20490 BMP - LAB USE ONLY 17:19:11 [employer] CPT-87117 PT/INR - LAB USE ONLY 17:19:10 [employer] CPT-10486 Venipuncture Draw Fee 17:19:10 [employer] CPT-80987 PT/INR - LAB USE ONLY 08:12:25 [employer] CPT-15691 Venipuncture Draw Fee 08:12:24 [employer] CPT-64242 Venipuncture Draw Fee 11:31:07 JOURNEYMAN M[employer]WR[employer] CPT-23847 TPSA - LAB USE ONLY 11:31:07 JOURNEYMAN M[employer]WR[employer] CPT-92381 PT/INR - LAB USE ONLY 11:31:07 [employer]NEYMAN M[employer] CPT-G0439 Subsequent Annual Wellness Exam 09:59:29 JOURNEYMAN M[employer]WR[employer] CPT-78838 Creatinine - LAB USE ONLY 14:37:55 [employer]NEYMAN M[employer]WR[employer] CPT-15848 PT/INR - LAB USE ONLY 14:37:55 [employer]NEY[employer] CPT-14532 Venipuncture Draw Fee 14:37:55 [employer]NEYMAN M[employer] CPT-80874 LS spine comp w obliques - XRAY USE ONLY 12:59:25 [employer] CPT-21714 PT/INR - LAB USE ONLY 13:49:20 CDT CPT-87262 Venipuncture Draw Fee 13:49:19 CDT CPT-32646 PT/INR - LAB USE ONLY 15:48:49 CDT CPT-13984 Venipuncture Draw Fee 15:48:49 CDT CPT-35514 Venipuncture Draw Fee 11:31:59 CDT CPT-66010 PT/INR - LAB USE ONLY 11:31:59 CDT CPT-16977 Venipuncture Draw Fee 13:29:15 CDT CPT-37730 Thoracolumbar AP/Lat 15:19:19 [employer] CPT-G0438 Initial Annual Wellness Exam 12:18:54 [employer] CPT-94502 Knee 3V 09:57:38 CDT CPT-OV Office Visit 15:45:01 [employer] CPT-72459 Abd compl w upright 17:10:25 CDT
--- OUTSIDE RECORDS SUMMARY | 2018-07-18 09:04 | XMS REPORT | Clinical Summary ---
Author Author Admin, Tixie ([employer] Organization [employer] Address Unknown Phone Unavailable Allergies, Adverse Reactions, [...] neoplasm of prostate V10.46 Active Alina Meyers GASTROENTEROLOGY MANAGER Personal history of malignant neoplasm of prostate Coronary artery disease 414.00 Active Alina Meyers APRN Coronary atherosclerosis of unspecified type of vessel, telida or graft Back pain, thoracic region, left [...] Sirisha Gustavo LOO Bronchitis-Acute ICD-466.0 Inactive Sirisha Chen LPN Knee pain, left ICD-719.46 Inactive Sirisha Chen MARKETING OUTREACH COORDINATOR Actinic keratoses ICD-702.0 Inactive Sirisha Chen MARKETING OUTREACH COORDINATOR Back pain, thoracic region, left ICD-724.1 Inactive Piotr Daley DO Thoracic back pain ICD-724.5 Inactive Sirisha Chen MARKETING OUTREACH COORDINATOR Back pain lumbar ICD-724.2 Inactive Sirisha Chen MARKETING OUTREACH COORDINATOR Insect bite ICD-919.4 Inactive Sirisha Chen MARKETING OUTREACH COORDINATOR Pruritus ICD-698.9 Inactive Sirisha Chen MARKETING OUTREACH COORDINATOR 04/09 Bronchitis-Acute ICD-466.0 Inactive Sirisha Chen MARKETING OUTREACH COORDINATOR Dyspnea ICD-786.09 Inactive Sirisha Chen MARKETING OUTREACH COORDINATOR 05/09 DEEP VENOUS THROMBOPHLEBITIS, LEG, 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 Inactive Sirisha Chen MARKETING OUTREACH COORDINATOR DEEP VENOUS THROMBOPHLEBITIS, LEG, 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 Inactive Sirisha Chen MARKETING OUTREACH COORDINATOR Medication List Medication Instructions Start Date Stop Date Generic Name ND Status Provider Patient Instruction NYSTATIN 719504 UNIT/GM EXTERNAL CREAM Apply to rash 2-3 times a day and may repeat as needed NYSTATIN 77262260387 Active Sirisha Chen MARKETING OUTREACH COORDINATOR Active TRIAMCINOLONE ACETONIDE 0.1 % EXTERNAL CREAM apply bid sparingly to rash 2017 TRIAMCINOLONE ACETONIDE 80097085631 Active Sirisha Chen MARKETING OUTREACH COORDINATOR Active WARFARIN SODIUM 4 MG ORAL TABLET 1 tablet by mouth daily WARFARIN SODIUM 54518287977 Active Sirisha Chen MARKETING OUTREACH COORDINATOR Active MELOXICAM 15 MG ORAL TABLET 1 po q day for pain with food MELOXICAM 67557011237 Active Piotr Daley DO Active PREDNISONE 10 MG ORAL TABLET 1 tablet by mouth daily PREDNISONE 52724790819 No Longer Active Emelyn Norris Active TESSALON PERLES 100 MG ORAL CAPSULE 1-2 tablet by mouth 3 times daily 04/16 BENZONATATE 54547039972 No Longer Active Emelyn Norris Active PREDNISONE 20 MG ORAL TABLET two tabs by mouth today, then one tab by mouth days two and three PREDNISONE 02433394332 No Longer Active Piotr Daley DO Active CYCLOBENZAPRINE HCL 10 MG ORAL TABLET 1 tablet by mouth three times daily as needed for muscle spasm/pain CYCLOBENZAPRINE HCL 99624698775 Active Sirisha Chen LPN Active ZITHROMAX 250 MG ORAL TABLET Take two (2 ) tablets day one, then one (1) tablet a day for four (4) more days AZITHROMYCIN 88130540552 No Longer Active Piotr Daley DO Active PROAIR HFA 108 (90 BASE) MCG/ACT INHALATION AEROSOL SOLUTION 1-2 puffs four times a day as needed ALBUTEROL SULFATE 45797522463 No Longer Active Emelyn Norris Active DOXYCYCLINE HYCLATE 100 MG ORAL CAPSULE 1 cap by mouth BID x10 days DOXYCYCLINE HYCLATE 45657653413 No Longer Active Nella Harris APRN Active PREDNISONE 20 MG ORAL TABLET 2 tabs daily for 3 days, 1 tab daily for 3 days, 1/2 tab daily for 2 days PREDNISONE 27934775188 No Longer Active Matthew Rangel MD Active TRAMADOL HCL 50 MG ORAL TABLET 1 po tid with ES Tylenol TRAMADOL HCL 53773896211 No Longer Active Matthew Rangel MD Active GABAPENTIN 300 MG ORAL CAPSULE 1 po q hs for nerve pain GABAPENTIN 20171712349 No Longer Active Matthew Rangel MD Active PREDNISONE 20 MG ORAL TABLET 2 tablets today, then 1 tablet days 2 through 4 PREDNISONE 34369111566 No Longer Active Piotr Daley DO Active AZITHROMYCIN 250 MG ORAL TABLET 2 po qd x 1 day, then 1 po qd x 4 days 07/12 AZITHROMYCIN 41346357951 No Longer Active Piotr Daley DO Active IBUPROFEN 800 MG ORAL TABLET 1 tab every 8 hours as needed 07/12 IBUPROFEN 51790318716 No Longer Active Piotr Daley DO Active LOMOTIL 2.5-0.025 MG ORAL TABLET 1 to 2 four times a day as needed for diarrhea DIPHENOXYLATE-ATROPINE 51166213287 No Longer Active Piotr Daley DO Active WARFARIN SODIUM 4 MG ORAL TABLET 1 tab every evening WARFARIN SODIUM 64496113745 No Longer Active Piotr Daley DO Active PREDNISONE 20 MG ORAL TABLET 1 tablet twice daily for 2 days, then 1 tablet once daily for 2 days PREDNISONE 87216055262 No Longer Active Piotr Daley DO Active PROMETHAZINE HCL 25 MG ORAL TABLET 1 four times a day as needed for nausea/ vomiting PROMETHAZINE HCL 01058607113 No Longer Active Piotr Daley DO Active TUSSIONEX PENNKINETIC ER 10-8 MG/5ML ORAL SUSPENSION EXTENDED RELEASE 5ml po q12hr PRN Cough HYDROCOD POLST-CHLORPHEN POLST 96672299947 No Longer Active Piotr Daley DO Active AZITHROMYCIN 250 MG ORAL TABLET 2 po qd x 1 day, then 1 po qd x 4 days 10/13 AZITHROMYCIN 87212838950 No Longer Active Piotr Daley DO Active AZITHROMYCIN 250 MG ORAL TABLET 2 po qd x 1 day, then 1 po qd x 4 days 05/07 AZITHROMYCIN 57127894650 No Longer Active Piotr Daley DO Active LISINOPRIL-HYDROCHLOROTHIAZIDE 10-12.5 MG ORAL TABLET 1 tab by mouth daily LISINOPRIL-HYDROCHLOROTHIAZIDE 87676539546 Active Piotr Daley DO Active LISINOPRIL 10 MG ORAL TABLET 1/2-1 tab po every other day LISINOPRIL 01567576718 No Longer Active Piotr Daley DO Active VENTOLIN HFA 108 (90 Base) MCG/ACT INHALATION AEROSOL SOLUTION 2 puffs four times a day PRN cough ALBUTEROL SULFATE 96697160667 No Longer Active Piotr Daley DO Active NYSTATIN-TRIAMCINOLONE 695668-6.1 UNIT/GM-% EXTERNAL CREAM Apply to area BID NYSTATIN-TRIAMCINOLONE 72463430077 No Longer Active Alena Chavira MARKETING OUTREACH COORDINATOR Active PHISOHEX 3 % LIQD Use Directed HEXACHLOROPHENE 71824380078 No Longer Active Sandra Lecanto Active AZITHROMYCIN 250 MG ORAL TABLET 2 po qd x 1 day, then 1 po qd x 4 days 10/21 AZITHROMYCIN 34522842821 No Longer Active Katrina Rinaldi MD PhD Active AZITHROMYCIN 250 MG ORAL TABLET 2 po qd x 1 day, then 1 po qd x 4 days 10/16 AZITHROMYCIN 32234424221 No Longer Active Piotr Daley DO Active AZITHROMYCIN 500 MG INTRAVENOUS SOLUTION RECONSTITUTED 1 po q day AZITHROMYCIN 13016180788 No Longer Active Piotr Daley DO Active NYSTATIN-TRIAMCINOLONE 757056-5.1 UNIT/GM-% EXTERNAL CREAM apply bid NYSTATIN-TRIAMCINOLONE 03256300809 No Longer Active Piotr Daley DO Active IBUPROFEN 800 MG ORAL TABLET 1 po q 8 hours prn pain sparinly IBUPROFEN 54725293901 No Longer Active Piotr Daley DO Active VITAMIN D3 5000 UNIT ORAL CAPSULE 1 po daily CHOLECALCIFEROL 09344921258 Active Piotr Daley DO Active IBUPROFEN 800 MG ORAL TABLET 1 po q 8 hours prn pain sparinly IBUPROFEN 800 MG ORAL TABLET 860802 IBUPROFEN Inactive NYSTATIN-TRIAMCINOLONE 423533-0.1 UNIT/GM-% EXTERNAL CREAM apply bid NYSTATIN-TRIAMCINOLONE 206867-6.1 UNIT/GM-% EXTERNAL CREAM 0890267 NYSTATIN-TRIAMCINOLONE Inactive AZITHROMYCIN 500 MG INTRAVENOUS SOLUTION RECONSTITUTED 1 po q day AZITHROMYCIN 500 MG INTRAVENOUS SOLUTION RECONSTITUTED 47894485220 AZITHROMYCIN Inactive VENTOLIN HFA 108 (90 Base) MCG/ACT INHALATION AEROSOL SOLUTION 2 puffs four times a day PRN cough VENTOLIN HFA 108 (90 Base) MCG/ ACT INHALATION AEROSOL SOLUTION ALBUTEROL SULFATE Inactive LISINOPRIL 10 MG ORAL TABLET 1/2-1 tab po every other day LISINOPRIL 10 MG ORAL TABLET 418058 LISINOPRIL Inactive TUSSIONEX PENNKINETIC ER 10-8 MG/5ML ORAL SUSPENSION EXTENDED RELEASE 5ml po q12hr PRN Cough TUSSIONEX PENNKINETIC ER 10-8 MG/5ML ORAL SUSPENSION EXTENDED RELEASE HYDROCOD POLST-CHLORPHEN POLST Inactive PROMETHAZINE HCL 25 MG ORAL TABLET 1 four times a day as needed for nausea/ vomiting PROMETHAZINE HCL 25 MG ORAL TABLET 838250 PROMETHAZINE HCL Inactive PREDNISONE 20 MG ORAL TABLET 1 tablet twice daily for 2 days, then 1 tablet once daily for 2 days PREDNISONE 20 MG ORAL TABLET 522683 PREDNISONE Inactive WARFARIN SODIUM 4 MG ORAL TABLET 1 tab every evening WARFARIN SODIUM 4 MG ORAL TABLET 683245 WARFARIN SODIUM Inactive LOMOTIL 2.5-0.025 MG ORAL TABLET 1 to 2 four times a day as needed for diarrhea LOMOTIL 2.5-0.025 MG ORAL TABLET 3601811 DIPHENOXYLATE-ATROPINE Inactive IBUPROFEN 800 MG ORAL TABLET 1 tab every 8 hours as needed 07/12 IBUPROFEN 800 MG ORAL TABLET 081651 IBUPROFEN Inactive PREDNISONE 20 MG ORAL TABLET 2 tablets today, then 1 tablet days 2 through 4 PREDNISONE 20 MG ORAL TABLET 421151 PREDNISONE Inactive GABAPENTIN 300 MG ORAL CAPSULE 1 po q hs for nerve pain GABAPENTIN 300 MG ORAL CAPSULE 728599 GABAPENTIN Inactive TRAMADOL HCL 50 MG ORAL TABLET 1 po tid with ES Tylenol TRAMADOL HCL 50 MG ORAL TABLET 534502 TRAMADOL HCL Inactive PROAIR HFA 108 (90 BASE) MCG/ACT INHALATION AEROSOL SOLUTION 1-2 puffs four times a day as needed PROAIR HFA 108 (90 BASE) MCG/ACT INHALATION AEROSOL SOLUTION ALBUTEROL SULFATE Inactive PREDNISONE 20 MG ORAL TABLET two tabs by mouth today, then one tab by mouth days two and three PREDNISONE 20 MG ORAL TABLET 055945 PREDNISONE Inactive TESSALON PERLES 100 MG ORAL CAPSULE 1-2 tablet by mouth 3 times daily 04/16 TESSALON PERLES 100 MG ORAL CAPSULE 451568 BENZONATATE Inactive PREDNISONE 10 MG ORAL TABLET 1 tablet by mouth daily PREDNISONE 10 MG ORAL TABLET 269637 PREDNISONE Inactive AZITHROMYCIN 250 MG ORAL TABLET 2 po qd x 1 day, then 1 po qd x 4 days 10/16 AZITHROMYCIN 250 MG ORAL TABLET 843302 AZITHROMYCIN Inactive AZITHROMYCIN 250 MG ORAL TABLET 2 po qd x 1 day, then 1 po qd x 4 days 10/21 AZITHROMYCIN 250 MG ORAL TABLET 031340 AZITHROMYCIN Inactive NYSTATIN-TRIAMCINOLONE 376290-5.1 UNIT/GM-% EXTERNAL CREAM Apply to area BID NYSTATIN-TRIAMCINOLONE 569638-2.1 UNIT/GM-% EXTERNAL CREAM 0930631 NYSTATIN-TRIAMCINOLONE Inactive AZITHROMYCIN 250 MG ORAL TABLET 2 po qd x 1 day, then 1 po qd x 4 days 05/07 AZITHROMYCIN 250 MG ORAL TABLET 078771 AZITHROMYCIN Inactive AZITHROMYCIN 250 MG ORAL TABLET 2 po qd x 1 day, then 1 po qd x 4 days 10/13 AZITHROMYCIN 250 MG ORAL TABLET 668732 AZITHROMYCIN Inactive AZITHROMYCIN 250 MG ORAL TABLET 2 po qd x 1 day, then 1 po qd x 4 days 07/12 AZITHROMYCIN 250 MG ORAL TABLET 526647 AZITHROMYCIN Inactive PREDNISONE 20 MG ORAL TABLET 2 tabs daily for 3 days, 1 tab daily for 3 days, 1/2 tab daily for 2 days PREDNISONE 20 MG ORAL TABLET 861320 PREDNISONE Inactive DOXYCYCLINE HYCLATE 100 MG ORAL CAPSULE 1 cap by mouth BID x10 days DOXYCYCLINE HYCLATE 100 MG ORAL CAPSULE 3033740 DOXYCYCLINE HYCLATE Inactive ZITHROMAX 250 MG ORAL TABLET Take two (2 ) tablets day one, then one (1) tablet a day for four (4) more days ZITHROMAX 250 MG ORAL TABLET 361266 AZITHROMYCIN Inactive Advance Directives Directive Description Start [...] Measured Encounters Code Encounter Date Provider Facility CPT-94361 [id number] Vst-Est Level III 14:29:05 CDT Piotr Wilson [facility] CPT-28527 Level 3 Est. Patient 15:59:25 RAW SILK GRADER Piotr Daley [facility] CPT-33197 Level 3 Est. Patient 12:33:59 RAW SILK GRADER Piotr Wilson [facility] CPT-19779 Level 3 Est. Patient 15:56:17 RAW SILK GRADER Piotr Daley [facility] CPT-60525 Level 3 Est. Patient 10:34:54 RAW SILK GRADER Piotr Wilson [facility] CPT-22090 Level 3 Est. Patient 17:10:19 CDT Nella Harris APRN [facility] CPT-25520 Level 3 Est. Patient 10:48:17 RAW SILK GRADER Matthew Rangel MD [facility] CPT-24323 Level 4 Est. Patient 17:15:07 RAW SILK GRADER Piotr Daley [facility] CPT-75508 Level 3 Est. Patient 12:46:13 RAW SILK GRADER Piotr Daley [facility] CPT-39881 Level 3 Est. Patient 15:14:31 RAW SILK GRADER Piotr Daley [facility] CPT-24404 Level 3 Est. Patient 09:20:13 RAW SILK GRADER Piotr Daley [facility] CPT-10567 Level 3 Est. Patient 09:49:40 CDT Piotr Wilson [facility] CPT-36906 Level 3 Est. Patient 16:28:11 CDT Piotr Daley [facility] CPT-97641 Level 3 Est. Patient 12:41:58 RAW SILK GRADER Piotr Daley [facility] CPT-83325 Level 3 Est. Patient 09:21:24 CDT Piotr Daley [facility] CPT-75641 Level 3 Est. Patient 09:21:11 CDT Piotr Daley [facility] CPT-01450 Level 3 Est. Patient 11:16:29 RAW SILK GRADER Piotr Daley [facility] CPT-56530 Level 3 Est. Patient 18:40:19 RAW SILK GRADER Piotr Daley [facility] CPT-46557 Level 3 Est. Patient 19:30:50 CDT Piotr Daley [facility] CPT-29288 Level 3 Est. Patient 22:06:44 CDT Katrina Rinaldi MD [facility] CPT-23338 Level 3 Est. Patient 14:20:00 CDT Piotr Katie Daley [facility] CPT-87491 Level 3 Est. Patient 14:15:22 RAW SILK GRADER Piotr Katie Daley [facility] CPT-47951 Level 3 Est. Patient 20:19:57 RAW SILK GRADER Piotr Katie Daley [facility] CPT-89357 Level 3 Est. Patient 16:44:32 CDT Piotr Katie Edi [facility] CPT-47519 Level 3 Est. Patient 08:48:46 RAW SILK GRADER Piotr Wilson Edi [facility] CPT-59128 Level 3 Est. Patient 21:01:21 CDT Piotr Daley [facility] Procedures Code Procedure Name Date Entry Date Standard Description CPT-96942 Sacroiliac jt < 3V - XRAY USE ONLY 16:45:19 RAW SILK GRADER 05/09 CPT-05106 LS spine comp w obliques - XRAY USE ONLY 14:52:26 RAW SILK GRADER CPT-98817 Chest, 2 views 12:55:58 RAW SILK GRADER CPT-G0439 Subsequent Annual Wellness Exam 10:34:52 RAW SILK GRADER CPT-97429 BMP - LAB USE ONLY 17:19:11 RAW SILK GRADER CPT-96512 PT/INR - LAB USE ONLY 17:19:10 RAW SILK GRADER CPT-20791 Venipuncture Draw Fee 17:19:10 RAW SILK GRADER CPT-00473 PT/INR - LAB USE ONLY 08:12:25 RAW SILK GRADER CPT-17402 Venipuncture Draw Fee 08:12:24 RAW SILK GRADER CPT-81483 Venipuncture Draw Fee 11:31:07 RAW SILK GRADER CPT-42945 TPSA - LAB USE ONLY 11:31:07 RAW SILK GRADER CPT-94425 PT/INR - LAB USE ONLY 11:31:07 RAW SILK GRADER CPT-G0439 Subsequent Annual Wellness Exam 09:59:29 RAW SILK GRADER CPT-95805 Creatinine - LAB USE ONLY 14:37:55 RAW SILK GRADER CPT-83415 PT/INR - LAB USE ONLY 14:37:55 RAW SILK GRADER CPT-29796 Venipuncture Draw Fee 14:37:55 RAW SILK GRADER CPT-29781 LS spine comp w obliques - XRAY USE ONLY 12:59:25 RAW SILK GRADER CPT-20238 PT/INR - LAB USE ONLY 13:49:20 CDT CPT-83820 Venipuncture Draw Fee 13:49:19 CDT CPT-93381 PT/INR - LAB USE ONLY 15:48:49 CDT CPT-83045 Venipuncture Draw Fee 15:48:49 CDT CPT-37829 Venipuncture Draw Fee 11:31:59 CDT CPT-33662 PT/INR - LAB USE ONLY 11:31:59 CDT CPT-73570 Venipuncture Draw Fee 13:29:15 CDT CPT-96475 Thoracolumbar AP/Lat 15:19:19 RAW SILK GRADER CPT-G0438 Initial Annual Wellness Exam 12:18:54 RAW SILK GRADER CPT-56312 Knee 3V 09:57:38 CDT CPT-OV Office Visit 15:45:01 RAW SILK GRADER CPT-00213 Abd compl w upright 17:10:25 CDT
--- OUTSIDE RECORDS SUMMARY | 2018-07-18 09:05 | XMS REPORT | Clinical Summary ---
Author Author Admin, B[employer] Organization [employer] Address Unknown Phone Unavailable Allergies, Adverse Reactions, [...] Coronary atherosclerosis of unspecified type of vessel, tetlin or graft Back pain, thoracic region, left [...] Leg pain, right ICD-729.5 Inactive Sirisha Chen RESOURCE ANALYST Right leg pain ICD-729.5 Inactive Sirisha Chen RESOURCE ANALYST Bronchitis-Acute ICD-466.0 Inactive Sirisha Chen RESOURCE ANALYST Knee pain, left ICD-719.46 Inactive Sirisha Chen RESOURCE ANALYST Actinic keratoses ICD-702.0 Inactive Sirisha Chen RESOURCE ANALYST Back pain, thoracic region, left ICD-724.1 Inactive Piotr Daley DO Thoracic back pain ICD-724.5 Inactive Sirisha Chen RESOURCE ANALYST Back pain lumbar ICD-724.2 Inactive Sirisha Chen RESOURCE ANALYST Insect bite ICD-919.4 Inactive Sirisha Chen RESOURCE ANALYST Pruritus ICD-698.9 Inactive Sirisha Chen RESOURCE ANALYST 04/09 Bronchitis-Acute ICD-466.0 Inactive Sirisha Chen RESOURCE ANALYST Dyspnea ICD-786.09 Inactive Sirisha Chen RESOURCE ANALYST 05/09 Medication List Medication Instructions Start Date Stop Date Generic Name NDC Status Provider Patient Instruction NYSTATIN 072017 UNIT/GM EXTERNAL CREAM Apply to rash 2-3 times a day and may repeat as needed NYSTATIN 85885349378 Active Sirisha Chen RESOURCE ANALYST Active TRIAMCINOLONE ACETONIDE 0.1 % EXTERNAL CREAM apply bid sparingly to rash 2017 TRIAMCINOLONE ACETONIDE 44926098678 Active Sirisha Chen RESOURCE ANALYST Active WARFARIN SODIUM 4 MG ORAL TABLET 1 tablet by mouth daily WARFARIN SODIUM 64841639541 Active Sirisha Chen RESOURCE ANALYST Active MELOXICAM 15 MG ORAL TABLET 1 po q day for pain with food MELOXICAM 13876337583 Active Piotr Daley DO Active PREDNISONE 10 MG ORAL TABLET 1 tablet by mouth daily PREDNISONE 63013930642 No Longer Active Emelyn Norris Active TESSALON PERLES 100 MG ORAL CAPSULE 1-2 tablet by mouth 3 times daily 04/16 BENZONATATE 79617502385 No Longer Active Emelyn Norris Active PREDNISONE 20 MG ORAL TABLET two tabs by mouth today, then one tab by mouth days two and three PREDNISONE 69580248548 No Longer Active Piotr Daley DO Active CYCLOBENZAPRINE HCL 10 MG ORAL TABLET 1 tablet by mouth three times daily as needed for muscle spasm/pain CYCLOBENZAPRINE HCL 15901269324 Active Sirisha Chen LPN Active ZITHROMAX 250 MG ORAL TABLET Take two (2 ) tablets day one, then one (1) tablet a day for four (4) more days AZITHROMYCIN 38958051645 No Longer Active Piotr Daley DO Active PROAIR HFA 108 (90 BASE) MCG/ACT INHALATION AEROSOL SOLUTION 1-2 puffs four times a day as needed ALBUTEROL SULFATE 20308622848 No Longer Active Emelyn Norris Active DOXYCYCLINE HYCLATE 100 MG ORAL CAPSULE 1 cap by mouth BID x10 days DOXYCYCLINE HYCLATE 34251668428 No Longer Active Nella Harris APRN Active PREDNISONE 20 MG ORAL TABLET 2 tabs daily for 3 days, 1 tab daily for 3 days, 1/2 tab daily for 2 days PREDNISONE 38922904172 No Longer Active Matthew Rangel MD Active TRAMADOL HCL 50 MG ORAL TABLET 1 po tid with ES Tylenol TRAMADOL HCL 07337635494 No Longer Active Matthew Rangel MD Active GABAPENTIN 300 MG ORAL CAPSULE 1 po q hs for nerve pain GABAPENTIN 90217981929 No Longer Active Matthew Rangel MD Active PREDNISONE 20 MG ORAL TABLET 2 tablets today, then 1 tablet days 2 through 4 PREDNISONE 88541968788 No Longer Active Piotr Daley DO Active AZITHROMYCIN 250 MG ORAL TABLET 2 po qd x 1 day, then 1 po qd x 4 days 07/12 AZITHROMYCIN 78479654267 No Longer Active Piotr Daley DO Active IBUPROFEN 800 MG ORAL TABLET 1 tab every 8 hours as needed 07/12 IBUPROFEN 53277108405 No Longer Active Piotr Daley DO Active LOMOTIL 2.5-0.025 MG ORAL TABLET 1 to 2 four times a day as needed for diarrhea DIPHENOXYLATE-ATROPINE 92401295207 No Longer Active Piotr Daley DO Active WARFARIN SODIUM 4 MG ORAL TABLET 1 tab every evening WARFARIN SODIUM 35906452484 No Longer Active Piotr Daley DO Active PREDNISONE 20 MG ORAL TABLET 1 tablet twice daily for 2 days, then 1 tablet once daily for 2 days PREDNISONE 77596324736 No Longer Active Piotr Daley DO Active PROMETHAZINE HCL 25 MG ORAL TABLET 1 four times a day as needed for nausea/ vomiting PROMETHAZINE HCL 34323239181 No Longer Active Piotr Daley DO Active TUSSIONEX PENNKINETIC ER 10-8 MG/5ML ORAL SUSPENSION EXTENDED RELEASE 5ml po q12hr PRN Cough HYDROCOD POLST-CHLORPHEN POLST 35700314584 No Longer Active Piotr Daley DO Active AZITHROMYCIN 250 MG ORAL TABLET 2 po qd x 1 day, then 1 po qd x 4 days 10/13 AZITHROMYCIN 17748456204 No Longer Active Piotr Daley DO Active AZITHROMYCIN 250 MG ORAL TABLET 2 po qd x 1 day, then 1 po qd x 4 days 05/07 AZITHROMYCIN 98491819684 No Longer Active Piotr Daley DO Active LISINOPRIL-HYDROCHLOROTHIAZIDE 10-12.5 MG ORAL TABLET 1 tab by mouth daily LISINOPRIL-HYDROCHLOROTHIAZIDE 44574720288 Active Piotr Daley DO Active LISINOPRIL 10 MG ORAL TABLET 1/2-1 tab po every other day LISINOPRIL 21191960542 No Longer Active Piotr Daley DO Active VENTOLIN HFA 108 (90 Base) MCG/ACT INHALATION AEROSOL SOLUTION 2 puffs four times a day PRN cough ALBUTEROL SULFATE 87146961871 No Longer Active Piotr Daley DO Active NYSTATIN-TRIAMCINOLONE 296451-5.1 UNIT/GM-% EXTERNAL CREAM Apply to area BID NYSTATIN-TRIAMCINOLONE 54128363841 No Longer Active Alena Chavira RESOURCE ANALYST Active PHISOHEX 3 % LIQD Use Directed HEXACHLOROPHENE 99169151600 No Longer Active Sandra Grafton Active AZITHROMYCIN 250 MG ORAL TABLET 2 po qd x 1 day, then 1 po qd x 4 days 10/21 AZITHROMYCIN 29669537918 No Longer Active Katrina Rinaldi MD PhD Active AZITHROMYCIN 250 MG ORAL TABLET 2 po qd x 1 day, then 1 po qd x 4 days 10/16 AZITHROMYCIN 06045918283 No Longer Active Piotr Daley DO Active AZITHROMYCIN 500 MG INTRAVENOUS SOLUTION RECONSTITUTED 1 po q day AZITHROMYCIN 40673059395 No Longer Active Piotr Daley DO Active NYSTATIN-TRIAMCINOLONE 399932-0.1 UNIT/GM-% EXTERNAL CREAM apply bid NYSTATIN-TRIAMCINOLONE 16680995572 No Longer Active Piotr Daley DO Active IBUPROFEN 800 MG ORAL TABLET 1 po q 8 hours prn pain sparinly IBUPROFEN 09080887961 No Longer Active Piotr Daley DO Active VITAMIN D3 5000 UNIT ORAL CAPSULE 1 po daily CHOLECALCIFEROL 32459204358 Active Piotr Daley DO Active IBUPROFEN 800 MG ORAL TABLET 1 po q 8 hours prn pain sparinly IBUPROFEN 800 MG ORAL TABLET 578584 IBUPROFEN Inactive NYSTATIN-TRIAMCINOLONE 956739-7.1 UNIT/GM-% EXTERNAL CREAM apply bid NYSTATIN-TRIAMCINOLONE 113234-4.1 UNIT/GM-% EXTERNAL CREAM 4034433 NYSTATIN-TRIAMCINOLONE Inactive AZITHROMYCIN 500 MG INTRAVENOUS SOLUTION RECONSTITUTED 1 po q day AZITHROMYCIN 500 MG INTRAVENOUS SOLUTION RECONSTITUTED 88725300649 AZITHROMYCIN Inactive VENTOLIN HFA 108 (90 Base) MCG/ACT INHALATION AEROSOL SOLUTION 2 puffs four times a day PRN cough VENTOLIN HFA 108 (90 Base) MCG/ ACT INHALATION AEROSOL SOLUTION ALBUTEROL SULFATE Inactive LISINOPRIL 10 MG ORAL TABLET 1/2-1 tab po every other day LISINOPRIL 10 MG ORAL TABLET 742517 LISINOPRIL Inactive TUSSIONEX PENNKINETIC ER 10-8 MG/5ML ORAL SUSPENSION EXTENDED RELEASE 5ml po q12hr PRN Cough TUSSIONEX PENNKINETIC ER 10-8 MG/5ML ORAL SUSPENSION EXTENDED RELEASE HYDROCOD POLST-CHLORPHEN POLST Inactive PROMETHAZINE HCL 25 MG ORAL TABLET 1 four times a day as needed for nausea/ vomiting PROMETHAZINE HCL 25 MG ORAL TABLET 724459 PROMETHAZINE HCL Inactive PREDNISONE 20 MG ORAL TABLET 1 tablet twice daily for 2 days, then 1 tablet once daily for 2 days PREDNISONE 20 MG ORAL TABLET 240375 PREDNISONE Inactive WARFARIN SODIUM 4 MG ORAL TABLET 1 tab every evening WARFARIN SODIUM 4 MG ORAL TABLET 993346 WARFARIN SODIUM Inactive LOMOTIL 2.5-0.025 MG ORAL TABLET 1 to 2 four times a day as needed for diarrhea LOMOTIL 2.5-0.025 MG ORAL TABLET 0591166 DIPHENOXYLATE-ATROPINE Inactive IBUPROFEN 800 MG ORAL TABLET 1 tab every 8 hours as needed 07/12 IBUPROFEN 800 MG ORAL TABLET 297314 IBUPROFEN Inactive PREDNISONE 20 MG ORAL TABLET 2 tablets today, then 1 tablet days 2 through 4 PREDNISONE 20 MG ORAL TABLET 648129 PREDNISONE Inactive GABAPENTIN 300 MG ORAL CAPSULE 1 po q hs for nerve pain GABAPENTIN 300 MG ORAL CAPSULE 209544 GABAPENTIN Inactive TRAMADOL HCL 50 MG ORAL TABLET 1 po tid with ES Tylenol TRAMADOL HCL 50 MG ORAL TABLET 813058 TRAMADOL HCL Inactive PROAIR HFA 108 (90 BASE) MCG/ACT INHALATION AEROSOL SOLUTION 1-2 puffs four times a day as needed PROAIR HFA 108 (90 BASE) MCG/ACT INHALATION AEROSOL SOLUTION ALBUTEROL SULFATE Inactive PREDNISONE 20 MG ORAL TABLET two tabs by mouth today, then one tab by mouth days two and three PREDNISONE 20 MG ORAL TABLET 704654 PREDNISONE Inactive TESSALON PERLES 100 MG ORAL CAPSULE 1-2 tablet by mouth 3 times daily 04/16 TESSALON PERLES 100 MG ORAL CAPSULE 600017 BENZONATATE Inactive PREDNISONE 10 MG ORAL TABLET 1 tablet by mouth daily PREDNISONE 10 MG ORAL TABLET 932870 PREDNISONE Inactive AZITHROMYCIN 250 MG ORAL TABLET 2 po qd x 1 day, then 1 po qd x 4 days 10/16 AZITHROMYCIN 250 MG ORAL TABLET 899445 AZITHROMYCIN Inactive AZITHROMYCIN 250 MG ORAL TABLET 2 po qd x 1 day, then 1 po qd x 4 days 10/21 AZITHROMYCIN 250 MG ORAL TABLET 139565 AZITHROMYCIN Inactive NYSTATIN-TRIAMCINOLONE 687034-5.1 UNIT/GM-% EXTERNAL CREAM Apply to area BID NYSTATIN-TRIAMCINOLONE 092313-4.1 UNIT/GM-% EXTERNAL CREAM 1786949 NYSTATIN-TRIAMCINOLONE Inactive AZITHROMYCIN 250 MG ORAL TABLET 2 po qd x 1 day, then 1 po qd x 4 days 05/07 AZITHROMYCIN 250 MG ORAL TABLET 341627 AZITHROMYCIN Inactive AZITHROMYCIN 250 MG ORAL TABLET 2 po qd x 1 day, then 1 po qd x 4 days 10/13 AZITHROMYCIN 250 MG ORAL TABLET 518375 AZITHROMYCIN Inactive AZITHROMYCIN 250 MG ORAL TABLET 2 po qd x 1 day, then 1 po qd x 4 days 07/12 AZITHROMYCIN 250 MG ORAL TABLET 120237 AZITHROMYCIN Inactive PREDNISONE 20 MG ORAL TABLET 2 tabs daily for 3 days, 1 tab daily for 3 days, 1/2 tab daily for 2 days PREDNISONE 20 MG ORAL TABLET 427566 PREDNISONE Inactive DOXYCYCLINE HYCLATE 100 MG ORAL CAPSULE 1 cap by mouth BID x10 days DOXYCYCLINE HYCLATE 100 MG ORAL CAPSULE 4763666 DOXYCYCLINE HYCLATE Inactive ZITHROMAX 250 MG ORAL TABLET Take two (2 ) tablets day one, then one (1) tablet a day for four (4) more days ZITHROMAX 250 MG ORAL TABLET 519003 AZITHROMYCIN Inactive Advance Directives Directive Description Start [...] Measured Encounters Code Encounter Date Provider Facility CPT-11623 [id number] Vst-Est Level III 14:29:05 CDT Piotr Wilson [facility] CPT-75425 Level 3 Est. Patient 15:59:25 MOLECULAR MODELER Piotr Daley [facility] CPT-26009 Level 3 Est. Patient 12:33:59 MOLECULAR MODELER Piotr Daley [facility] CPT-47240 Level 3 Est. Patient 15:56:17 MOLECULAR MODELER Piotr Daley [facility] CPT-48730 Level 3 Est. Patient 10:34:54 MOLECULAR MODELER Piotr Wilson [facility] CPT-18813 Level 3 Est. Patient 17:10:19 CDT Nella Harris APRN [facility] CPT-73233 Level 3 Est. Patient 10:48:17 MOLECULAR MODELER Matthew Rangel MD [facility] CPT-14849 Level 4 Est. Patient 17:15:07 MOLECULAR MODELER Piotr Daley [facility] CPT-85621 Level 3 Est. Patient 12:46:13 MOLECULAR MODELER Piotr Daley [facility] CPT-12915 Level 3 Est. Patient 15:14:31 MOLECULAR MODELER Piotr Daley [facility] CPT-79988 Level 3 Est. Patient 09:20:13 MOLECULAR MODELER Piotr Daley [facility] CPT-76775 Level 3 Est. Patient 09:49:40 CDT Piotr Wilson [facility] CPT-41163 Level 3 Est. Patient 16:28:11 CDT Piotr Daley [facility] CPT-28336 Level 3 Est. Patient 12:41:58 MOLECULAR MODELER Piotr Daley [facility] CPT-45254 Level 3 Est. Patient 09:21:24 CDT Piotr Daley [facility] CPT-49464 Level 3 Est. Patient 09:21:11 CDT Piotr Daley [facility] CPT-68152 Level 3 Est. Patient 11:16:29 MOLECULAR MODELER Piotr Daley [facility] CPT-66623 Level 3 Est. Patient 18:40:19 MOLECULAR MODELER Piotr Daley [facility] CPT-87491 Level 3 Est. Patient 19:30:50 CDT iPotr Daley [facility] CPT-26946 Level 3 Est. Patient 22:06:44 CDT Katrina Rinaldi MD [facility] CPT-14946 Level 3 Est. Patient 14:20:00 CDT Piotr Katie Daley [facility] CPT-25217 Level 3 Est. Patient 14:15:22 MOLECULAR MODELER Piotr Daley [facility] CPT-85791 Level 3 Est. Patient 20:19:57 MOLECULAR MODELER Piotr Daley [facility] CPT-67090 Level 3 Est. Patient 16:44:32 CDT Piotr Katie Edi [facility] CPT-27041 Level 3 Est. Patient 08:48:46 MOLECULAR MODELER Piotr Katie Edi [facility] CPT-84124 Level 3 Est. Patient 21:01:21 CDT Piotr Daley [facility] Procedures Code Procedure Name Date Entry Date Standard Description CPT-42573 Sacroiliac jt < 3V - XRAY USE ONLY 16:45:19 MOLECULAR MODELER 05/09 CPT-83981 LS spine comp w obliques - XRAY USE ONLY 14:52:26 MOLECULAR MODELER CPT-79628 Chest, 2 views 12:55:58 MOLECULAR MODELER CPT-G0439 Subsequent Annual Wellness Exam 10:34:52 MOLECULAR MODELER CPT-49221 BMP - LAB USE ONLY 17:19:11 MOLECULAR MODELER CPT-59246 PT/INR - LAB USE ONLY 17:19:10 MOLECULAR MODELER CPT-50774 Venipuncture Draw Fee 17:19:10 MOLECULAR MODELER CPT-84872 PT/INR - LAB USE ONLY 08:12:25 MOLECULAR MODELER CPT-67179 Venipuncture Draw Fee 08:12:24 MOLECULAR MODELER CPT-68003 Venipuncture Draw Fee 11:31:07 MOLECULAR MODELER CPT-21467 TPSA - LAB USE ONLY 11:31:07 MOLECULAR MODELER CPT-03468 PT/INR - LAB USE ONLY 11:31:07 MOLECULAR MODELER CPT-G0439 Subsequent Annual Wellness Exam 09:59:29 MOLECULAR MODELER CPT-94873 Creatinine - LAB USE ONLY 14:37:55 MOLECULAR MODELER CPT-38625 PT/INR - LAB USE ONLY 14:37:55 MOLECULAR MODELER CPT-97662 Venipuncture Draw Fee 14:37:55 MOLECULAR MODELER CPT-15731 LS spine comp w obliques - XRAY USE ONLY 12:59:25 MOLECULAR MODELER CPT-69244 PT/INR - LAB USE ONLY 13:49:20 CDT CPT-30947 Venipuncture Draw Fee 13:49:19 CDT CPT-52428 PT/INR - LAB USE ONLY 15:48:49 CDT CPT-38113 Venipuncture Draw Fee 15:48:49 CDT CPT-42086 Venipuncture Draw Fee 11:31:59 CDT CPT-28216 PT/INR - LAB USE ONLY 11:31:59 CDT CPT-85288 Venipuncture Draw Fee 13:29:15 CDT CPT-87382 Thoracolumbar AP/Lat 15:19:19 MOLECULAR MODELER CPT-G0438 Initial Annual Wellness Exam 12:18:54 MOLECULAR MODELER CPT-68551 Knee 3V 09:57:38 CDT CPT-OV Office Visit 15:45:01 MOLECULAR MODELER CPT-72846 Abd compl w upright 17:10:25 CDT
--- OUTSIDE RECORDS SUMMARY | 2018-07-18 09:06 | XMS REPORT | Clinical Summary ---
Author Author Admin, [employer] Address Unknown Phone Unavailable Allergies, Adverse [...] neoplasm of prostate V10.46 Active Alina Meyers JANITOR CUSTODIAN Personal history of malignant neoplasm of prostate Coronary artery disease 414.00 Active Alina Meyers APRN Coronary atherosclerosis of unspecified type of vessel, [place] or graft Back pain, thoracic region, left [...] Leg pain, right ICD-729.5 Inactive Sirisha Chen BIOMETRICS TECHNICIAN Right leg pain ICD-729.5 Inactive Sirisha Chen BIOMETRICS TECHNICIAN Bronchitis-Acute ICD-466.0 Inactive Sirisha Chen BIOMETRICS TECHNICIAN Knee pain, left ICD-719.46 Inactive Sirisha Chen BIOMETRICS TECHNICIAN Actinic keratoses ICD-702.0 Inactive Sirisha Chen BIOMETRICS TECHNICIAN Back pain, thoracic region, left ICD-724.1 Inactive Piotr Daley DO Thoracic back pain ICD-724.5 Inactive Sirisha Chen BIOMETRICS TECHNICIAN Back pain lumbar ICD-724.2 Inactive Sirisha Chen BIOMETRICS TECHNICIAN Insect bite ICD-919.4 Inactive Sirisha Chen BIOMETRICS TECHNICIAN Pruritus ICD-698.9 Inactive Sirisha Chen BIOMETRICS TECHNICIAN 04/09 Bronchitis-Acute ICD-466.0 Inactive Sirisha Chen BIOMETRICS TECHNICIAN Dyspnea ICD-786.09 Inactive Sirisha Chen BIOMETRICS TECHNICIAN 05/09 Medication List Medication Instructions Start Date Stop Date Generic Name ND Status Provider Patient Instruction NYSTATIN 856185 UNIT/GM EXTERNAL CREAM Apply to rash 2-3 times a day and may repeat as needed NYSTATIN 18447444662 Active Sirisha Chen BIOMETRICS TECHNICIAN Active TRIAMCINOLONE ACETONIDE 0.1 % EXTERNAL CREAM apply bid sparingly to rash 2017 TRIAMCINOLONE ACETONIDE 37933800154 Active Sirisha Chen BIOMETRICS TECHNICIAN Active WARFARIN SODIUM 4 MG ORAL TABLET 1 tablet by mouth daily WARFARIN SODIUM 15152126832 Active Sirisha Chen BIOMETRICS TECHNICIAN Active MELOXICAM 15 MG ORAL TABLET 1 po q day for pain with food MELOXICAM 29944349573 Active Piotr Daley DO Active PREDNISONE 10 MG ORAL TABLET 1 tablet by mouth daily PREDNISONE 91000476384 No Longer Active Emelyn Norris Active TESSALON PERLES 100 MG ORAL CAPSULE 1-2 tablet by mouth 3 times daily 04/16 BENZONATATE 74974949170 No Longer Active Emelyn Norris Active PREDNISONE 20 MG ORAL TABLET two tabs by mouth today, then one tab by mouth days two and three PREDNISONE 95757571309 No Longer Active Piotr Daley DO Active CYCLOBENZAPRINE HCL 10 MG ORAL TABLET 1 tablet by mouth three times daily as needed for muscle spasm/pain CYCLOBENZAPRINE HCL 20488360116 Active Sirisha Chen LPN Active ZITHROMAX 250 MG ORAL TABLET Take two (2 ) tablets day one, then one (1) tablet a day for four (4) more days AZITHROMYCIN 87195757276 No Longer Active Piotr Daley DO Active PROAIR HFA 108 (90 BASE) MCG/ACT INHALATION AEROSOL SOLUTION 1-2 puffs four times a day as needed ALBUTEROL SULFATE 22107905098 No Longer Active Emelyn Norris Active DOXYCYCLINE HYCLATE 100 MG ORAL CAPSULE 1 cap by mouth BID x10 days DOXYCYCLINE HYCLATE 65960953291 No Longer Active Nella Harris APRN Active PREDNISONE 20 MG ORAL TABLET 2 tabs daily for 3 days, 1 tab daily for 3 days, 1/2 tab daily for 2 days PREDNISONE 85354344014 No Longer Active Matthew Rangel MD Active TRAMADOL HCL 50 MG ORAL TABLET 1 po tid with ES Tylenol TRAMADOL HCL 12897045436 No Longer Active Matthew Rangel MD Active GABAPENTIN 300 MG ORAL CAPSULE 1 po q hs for nerve pain GABAPENTIN 65518972036 No Longer Active Matthew Rangel MD Active PREDNISONE 20 MG ORAL TABLET 2 tablets today, then 1 tablet days 2 through 4 PREDNISONE 62340003715 No Longer Active Piotr Daley DO Active AZITHROMYCIN 250 MG ORAL TABLET 2 po qd x 1 day, then 1 po qd x 4 days 07/12 AZITHROMYCIN 46333370639 No Longer Active Piotr Daley DO Active IBUPROFEN 800 MG ORAL TABLET 1 tab every 8 hours as needed 07/12 IBUPROFEN 43793043565 No Longer Active Piotr Daley DO Active LOMOTIL 2.5-0.025 MG ORAL TABLET 1 to 2 four times a day as needed for diarrhea DIPHENOXYLATE-ATROPINE 04041777748 No Longer Active Piotr Daley DO Active WARFARIN SODIUM 4 MG ORAL TABLET 1 tab every evening WARFARIN SODIUM 56669163901 No Longer Active Piotr Daley DO Active PREDNISONE 20 MG ORAL TABLET 1 tablet twice daily for 2 days, then 1 tablet once daily for 2 days PREDNISONE 99806366587 No Longer Active Piotr Daley DO Active PROMETHAZINE HCL 25 MG ORAL TABLET 1 four times a day as needed for nausea/ vomiting PROMETHAZINE HCL 27951591534 No Longer Active Piotr Daley DO Active TUSSIONEX PENNKINETIC ER 10-8 MG/5ML ORAL SUSPENSION EXTENDED RELEASE 5ml po q12hr PRN Cough HYDROCOD POLST-CHLORPHEN POLST 04753779612 No Longer Active Piotr Daley DO Active AZITHROMYCIN 250 MG ORAL TABLET 2 po qd x 1 day, then 1 po qd x 4 days 10/13 AZITHROMYCIN 48171406362 No Longer Active Piotr Daley DO Active AZITHROMYCIN 250 MG ORAL TABLET 2 po qd x 1 day, then 1 po qd x 4 days 05/07 AZITHROMYCIN 88455939555 No Longer Active Piotr Daley DO Active LISINOPRIL-HYDROCHLOROTHIAZIDE 10-12.5 MG ORAL TABLET 1 tab by mouth daily LISINOPRIL-HYDROCHLOROTHIAZIDE 62571544447 Active Piotr Daley DO Active LISINOPRIL 10 MG ORAL TABLET 1/2-1 tab po every other day LISINOPRIL 21360037583 No Longer Active Piotr Daley DO Active VENTOLIN HFA 108 (90 Base) MCG/ACT INHALATION AEROSOL SOLUTION 2 puffs four times a day PRN cough ALBUTEROL SULFATE 61553007653 No Longer Active Piotr Daley DO Active NYSTATIN-TRIAMCINOLONE 050202-0.1 UNIT/GM-% EXTERNAL CREAM Apply to area BID NYSTATIN-TRIAMCINOLONE 15851739477 No Longer Active Alena Chavira BIOMETRICS TECHNICIAN Active PHISOHEX 3 % LIQD Use Directed HEXACHLOROPHENE 86137044324 No Longer Active Sandra Mineola Active AZITHROMYCIN 250 MG ORAL TABLET 2 po qd x 1 day, then 1 po qd x 4 days 10/21 AZITHROMYCIN 93102559303 No Longer Active Katrina Rinaldi MD PhD Active AZITHROMYCIN 250 MG ORAL TABLET 2 po qd x 1 day, then 1 po qd x 4 days 10/16 AZITHROMYCIN 63088383632 No Longer Active Piotr Daley DO Active AZITHROMYCIN 500 MG INTRAVENOUS SOLUTION RECONSTITUTED 1 po q day AZITHROMYCIN 89419096422 No Longer Active Piotr Daley DO Active NYSTATIN-TRIAMCINOLONE 890632-4.1 UNIT/GM-% EXTERNAL CREAM apply bid NYSTATIN-TRIAMCINOLONE 79260196487 No Longer Active Piotr Daley DO Active IBUPROFEN 800 MG ORAL TABLET 1 po q 8 hours prn pain sparinly IBUPROFEN 89046198124 No Longer Active Piotr Daley DO Active VITAMIN D3 5000 UNIT ORAL CAPSULE 1 po daily CHOLECALCIFEROL 03608998758 Active Piotr Daley DO Active IBUPROFEN 800 MG ORAL TABLET 1 po q 8 hours prn pain sparinly IBUPROFEN 800 MG ORAL TABLET 751062 IBUPROFEN Inactive NYSTATIN-TRIAMCINOLONE 947044-3.1 UNIT/GM-% EXTERNAL CREAM apply bid NYSTATIN-TRIAMCINOLONE 691404-0.1 UNIT/GM-% EXTERNAL CREAM 2018995 NYSTATIN-TRIAMCINOLONE Inactive AZITHROMYCIN 500 MG INTRAVENOUS SOLUTION RECONSTITUTED 1 po q day AZITHROMYCIN 500 MG INTRAVENOUS SOLUTION RECONSTITUTED 10358350505 AZITHROMYCIN Inactive VENTOLIN HFA 108 (90 Base) MCG/ACT INHALATION AEROSOL SOLUTION 2 puffs four times a day PRN cough VENTOLIN HFA 108 (90 Base) MCG/ ACT INHALATION AEROSOL SOLUTION ALBUTEROL SULFATE Inactive LISINOPRIL 10 MG ORAL TABLET 1/2-1 tab po every other day LISINOPRIL 10 MG ORAL TABLET 484264 LISINOPRIL Inactive TUSSIONEX PENNKINETIC ER 10-8 MG/5ML ORAL SUSPENSION EXTENDED RELEASE 5ml po q12hr PRN Cough TUSSIONEX PENNKINETIC ER 10-8 MG/5ML ORAL SUSPENSION EXTENDED RELEASE HYDROCOD POLST-CHLORPHEN POLST Inactive PROMETHAZINE HCL 25 MG ORAL TABLET 1 four times a day as needed for nausea/ vomiting PROMETHAZINE HCL 25 MG ORAL TABLET 983690 PROMETHAZINE HCL Inactive PREDNISONE 20 MG ORAL TABLET 1 tablet twice daily for 2 days, then 1 tablet once daily for 2 days PREDNISONE 20 MG ORAL TABLET 094899 PREDNISONE Inactive WARFARIN SODIUM 4 MG ORAL TABLET 1 tab every evening WARFARIN SODIUM 4 MG ORAL TABLET 985232 WARFARIN SODIUM Inactive LOMOTIL 2.5-0.025 MG ORAL TABLET 1 to 2 four times a day as needed for diarrhea LOMOTIL 2.5-0.025 MG ORAL TABLET 4869733 DIPHENOXYLATE-ATROPINE Inactive IBUPROFEN 800 MG ORAL TABLET 1 tab every 8 hours as needed 07/12 IBUPROFEN 800 MG ORAL TABLET 468146 IBUPROFEN Inactive PREDNISONE 20 MG ORAL TABLET 2 tablets today, then 1 tablet days 2 through 4 PREDNISONE 20 MG ORAL TABLET 564972 PREDNISONE Inactive GABAPENTIN 300 MG ORAL CAPSULE 1 po q hs for nerve pain GABAPENTIN 300 MG ORAL CAPSULE 026927 GABAPENTIN Inactive TRAMADOL HCL 50 MG ORAL TABLET 1 po tid with ES Tylenol TRAMADOL HCL 50 MG ORAL TABLET 552331 TRAMADOL HCL Inactive PROAIR HFA 108 (90 BASE) MCG/ACT INHALATION AEROSOL SOLUTION 1-2 puffs four times a day as needed PROAIR HFA 108 (90 BASE) MCG/ACT INHALATION AEROSOL SOLUTION ALBUTEROL SULFATE Inactive PREDNISONE 20 MG ORAL TABLET two tabs by mouth today, then one tab by mouth days two and three PREDNISONE 20 MG ORAL TABLET 501393 PREDNISONE Inactive TESSALON PERLES 100 MG ORAL CAPSULE 1-2 tablet by mouth 3 times daily 04/16 TESSALON PERLES 100 MG ORAL CAPSULE 767610 BENZONATATE Inactive PREDNISONE 10 MG ORAL TABLET 1 tablet by mouth daily PREDNISONE 10 MG ORAL TABLET 632478 PREDNISONE Inactive AZITHROMYCIN 250 MG ORAL TABLET 2 po qd x 1 day, then 1 po qd x 4 days 10/16 AZITHROMYCIN 250 MG ORAL TABLET 481259 AZITHROMYCIN Inactive AZITHROMYCIN 250 MG ORAL TABLET 2 po qd x 1 day, then 1 po qd x 4 days 10/21 AZITHROMYCIN 250 MG ORAL TABLET 440971 AZITHROMYCIN Inactive NYSTATIN-TRIAMCINOLONE 424390-6.1 UNIT/GM-% EXTERNAL CREAM Apply to area BID NYSTATIN-TRIAMCINOLONE 154191-7.1 UNIT/GM-% EXTERNAL CREAM 6184451 NYSTATIN-TRIAMCINOLONE Inactive AZITHROMYCIN 250 MG ORAL TABLET 2 po qd x 1 day, then 1 po qd x 4 days 05/07 AZITHROMYCIN 250 MG ORAL TABLET 819734 AZITHROMYCIN Inactive AZITHROMYCIN 250 MG ORAL TABLET 2 po qd x 1 day, then 1 po qd x 4 days 10/13 AZITHROMYCIN 250 MG ORAL TABLET 095430 AZITHROMYCIN Inactive AZITHROMYCIN 250 MG ORAL TABLET 2 po qd x 1 day, then 1 po qd x 4 days 07/12 AZITHROMYCIN 250 MG ORAL TABLET 108035 AZITHROMYCIN Inactive PREDNISONE 20 MG ORAL TABLET 2 tabs daily for 3 days, 1 tab daily for 3 days, 1/2 tab daily for 2 days PREDNISONE 20 MG ORAL TABLET 202163 PREDNISONE Inactive DOXYCYCLINE HYCLATE 100 MG ORAL CAPSULE 1 cap by mouth BID x10 days DOXYCYCLINE HYCLATE 100 MG ORAL CAPSULE 8273041 DOXYCYCLINE HYCLATE Inactive ZITHROMAX 250 MG ORAL TABLET Take two (2 ) tablets day one, then one (1) tablet a day for four (4) more days ZITHROMAX 250 MG ORAL TABLET 416201 AZITHROMYCIN Inactive Advance Directives Directive Description Start [...] Measured Encounters Code Encounter Date Provider Facility CPT-36653 [id number] Vst-Est Level III 14:29:05 CDT Piotr Wilson [facility] CPT-31306 Level 3 Est. Patient 15:59:25 SALES SERVICE PROFESSIONAL Piotr Daley [facility] CPT-15890 Level 3 Est. Patient 12:33:59 SALES SERVICE PROFESSIONAL Piotr Wilson [facility] CPT-07669 Level 3 Est. Patient 15:56:17 SALES SERVICE PROFESSIONAL Piotr Daley [facility] CPT-92177 Level 3 Est. Patient 10:34:54 SALES SERVICE PROFESSIONAL Piotr Wilson [facility] CPT-81564 Level 3 Est. Patient 17:10:19 CDT Nella Harris APRN [facility] CPT-05824 Level 3 Est. Patient 10:48:17 SALES SERVICE PROFESSIONAL Matthew Rangel MD [facility] CPT-22587 Level 4 Est. Patient 17:15:07 SALES SERVICE PROFESSIONAL Piotr Daley [facility] CPT-69572 Level 3 Est. Patient 12:46:13 SALES SERVICE PROFESSIONAL Piotr Daley [facility] CPT-01164 Level 3 Est. Patient 15:14:31 SALES SERVICE PROFESSIONAL Piotr Daley [facility] CPT-25966 Level 3 Est. Patient 09:20:13 SALES SERVICE PROFESSIONAL Piotr Daley [facility] CPT-79066 Level 3 Est. Patient 09:49:40 CDT Piotr Wilson [facility] CPT-32185 Level 3 Est. Patient 16:28:11 CDT Piotr Daley [facility] CPT-93067 Level 3 Est. Patient 12:41:58 SALES SERVICE PROFESSIONAL Piotr Daley [facility] CPT-36604 Level 3 Est. Patient 09:21:24 CDT Piotr Daley [facility] CPT-68862 Level 3 Est. Patient 09:21:11 CDT Piotr Daley [facility] CPT-59410 Level 3 Est. Patient 11:16:29 SALES SERVICE PROFESSIONAL Piotr Daley [facility] CPT-04181 Level 3 Est. Patient 18:40:19 SALES SERVICE PROFESSIONAL Piotr Daley [facility] CPT-84453 Level 3 Est. Patient 19:30:50 CDT Piotr Daley [facility] CPT-96944 Level 3 Est. Patient 22:06:44 CDT Katrina Rinaldi MD [facility] CPT-05918 Level 3 Est. Patient 14:20:00 CDT Piotr Katie Daley [facility] CPT-89946 Level 3 Est. Patient 14:15:22 SALES SERVICE PROFESSIONAL Piotr Katie Daley [facility] CPT-28850 Level 3 Est. Patient 20:19:57 SALES SERVICE PROFESSIONAL Piotr Katie Daley [facility] CPT-20679 Level 3 Est. Patient 16:44:32 CDT Piotr Katie Edi [facility] CPT-03710 Level 3 Est. Patient 08:48:46 SALES SERVICE PROFESSIONAL Piotr Wilson Edi [facility] CPT-66370 Level 3 Est. Patient 21:01:21 CDT Piotr Daley [facility] Procedures Code Procedure Name Date Entry Date Standard Description CPT-92408 Sacroiliac jt < 3V - XRAY USE ONLY 16:45:19 SALES SERVICE PROFESSIONAL 05/09 CPT-93376 LS spine comp w obliques - XRAY USE ONLY 14:52:26 SALES SERVICE PROFESSIONAL CPT-87687 Chest, 2 views 12:55:58 SALES SERVICE PROFESSIONAL CPT-G0439 Subsequent Annual Wellness Exam 10:34:52 SALES SERVICE PROFESSIONAL CPT-99353 BMP - LAB USE ONLY 17:19:11 SALES SERVICE PROFESSIONAL CPT-69935 PT/INR - LAB USE ONLY 17:19:10 SALES SERVICE PROFESSIONAL CPT-50114 Venipuncture Draw Fee 17:19:10 SALES SERVICE PROFESSIONAL CPT-41261 PT/INR - LAB USE ONLY 08:12:25 SALES SERVICE PROFESSIONAL CPT-86422 Venipuncture Draw Fee 08:12:24 SALES SERVICE PROFESSIONAL CPT-56109 Venipuncture Draw Fee 11:31:07 SALES SERVICE PROFESSIONAL CPT-75108 TPSA - LAB USE ONLY 11:31:07 SALES SERVICE PROFESSIONAL CPT-02233 PT/INR - LAB USE ONLY 11:31:07 SALES SERVICE PROFESSIONAL CPT-G0439 Subsequent Annual Wellness Exam 09:59:29 SALES SERVICE PROFESSIONAL CPT-80273 Creatinine - LAB USE ONLY 14:37:55 SALES SERVICE PROFESSIONAL CPT-60316 PT/INR - LAB USE ONLY 14:37:55 SALES SERVICE PROFESSIONAL CPT-02046 Venipuncture Draw Fee 14:37:55 SALES SERVICE PROFESSIONAL CPT-89633 LS spine comp w obliques - XRAY USE ONLY 12:59:25 SALES SERVICE PROFESSIONAL CPT-37099 PT/INR - LAB USE ONLY 13:49:20 CDT CPT-49292 Venipuncture Draw Fee 13:49:19 CDT CPT-18488 PT/INR - LAB USE ONLY 15:48:49 CDT CPT-60280 Venipuncture Draw Fee 15:48:49 CDT CPT-19049 Venipuncture Draw Fee 11:31:59 CDT CPT-37087 PT/INR - LAB USE ONLY 11:31:59 CDT CPT-56610 Venipuncture Draw Fee 13:29:15 CDT CPT-78868 Thoracolumbar AP/Lat 15:19:19 SALES SERVICE PROFESSIONAL CPT-G0438 Initial Annual Wellness Exam 12:18:54 SALES SERVICE PROFESSIONAL CPT-06330 Knee 3V 09:57:38 CDT CPT-OV Office Visit 15:45:01 SALES SERVICE PROFESSIONAL CPT-53887 Abd compl w upright 17:10:25 CDT
--- OUTSIDE RECORDS SUMMARY | 2018-07-18 09:08 | XMS REPORT | Clinical Summary ---
Author Author Admin, [employer] Address Unknown Phone Unavailable Allergies, Adverse Reactions, [...] prostate V10.46 Active Alina Meyers PROFESSOR OF EXERCISE SCIENCE Personal history of malignant neoplasm of prostate Coronary artery disease 414.00 Active Alina Meyers APRN Coronary atherosclerosis of unspecified type of vessel, [place] or graft Back pain, thoracic region, left [...] Norris Acute bronchitis Dyspnea 786.09 Resolved Emelyn Godoe Michaeleliceo Other dyspnea and respiratory abnormality Sacroiliitis, right 720.2 Active Emelyn Goode Rachealbita Sacroiliitis, not elsewhere classified Pes anserinus bursitis, right 726.61 Active Piotr Daley DO Pes anserinus tendinitis or bursitis Body Mass Index 30.0-30.9 Adult Active Piotr Daley DO Body Mass Index 30.0-30.9, adult FLANK PAIN, RIGHT ICD-789.09 Inactive Katrina Rinaldi MD PhD HEALTH MAINTENANCE EXAM ICD-V70.0 Inactive Ktarina Rinaldi MD PhD BRONCHITIS-ACUTE ICD-466.0 Inactive Piotr [...] pain, right ICD-729.5 Inactive Sirisha Chen DIRECTOR ELECTRONICS Right leg pain ICD-729.5 Inactive Sirisha Chen DIRECTOR ELECTRONICS Bronchitis-Acute ICD-466.0 Inactive Sirisha Chen DIRECTOR ELECTRONICS Knee pain, left ICD-719.46 Inactive Sriisha Chen DIRECTOR ELECTRONICS Actinic keratoses ICD-702.0 Inactive Sirisha Chen DIRECTOR ELECTRONICS Back pain, thoracic region, left ICD-724.1 Inactive Piotr Daley DO Thoracic back pain ICD-724.5 Inactive Sirisha Chen DIRECTOR ELECTRONICS Back pain lumbar ICD-724.2 Inactive Sirisha Chne DIRECTOR ELECTRONICS Insect bite ICD-919.4 Inactive Sirisha Chen DIRECTOR ELECTRONICS Pruritus ICD-698.9 Inactive Sirisha Chen DIRECTOR ELECTRONICS 04/09 Bronchitis-Acute ICD-466.0 Inactive Sirisha Chen DIRECTOR ELECTRONICS Dyspnea ICD-786.09 Inactive Sirisha Chen DIRECTOR ELECTRONICS 05/09 Medication List Medication Instructions Start Date Stop Date Generic Name ND Status Provider Patient Instruction NYSTATIN 782863 UNIT/GM EXTERNAL CREAM Apply to rash 2-3 times a day and may repeat as needed NYSTATIN 67000680960 Active Sirisha Chen DIRECTOR ELECTRONICS Active TRIAMCINOLONE ACETONIDE 0.1 % EXTERNAL CREAM apply bid sparingly to rash 2017 TRIAMCINOLONE ACETONIDE 45314497996 Active Sirisha Chen DIRECTOR ELECTRONICS Active WARFARIN SODIUM 4 MG ORAL TABLET 1 tablet by mouth daily WARFARIN SODIUM 68680633542 Active Sirisha Chen DIRECTOR ELECTRONICS Active MELOXICAM 15 MG ORAL TABLET 1 po q day for pain with food MELOXICAM 36551454482 Active Piotr Daley DO Active PREDNISONE 10 MG ORAL TABLET 1 tablet by mouth daily PREDNISONE 79081651351 No Longer Active Emelyn Norris Active TESSALON PERLES 100 MG ORAL CAPSULE 1-2 tablet by mouth 3 times daily 04/16 BENZONATATE 79603563405 No Longer Active Emelyn Norris Active PREDNISONE 20 MG ORAL TABLET two tabs by mouth today, then one tab by mouth days two and three PREDNISONE 28594079145 No Longer Active Piotr Daley DO Active CYCLOBENZAPRINE HCL 10 MG ORAL TABLET 1 tablet by mouth three times daily as needed for muscle spasm/pain CYCLOBENZAPRINE HCL 26402937676 Active Sirisha Chen LPN Active ZITHROMAX 250 MG ORAL TABLET Take two (2 ) tablets day one, then one (1) tablet a day for four (4) more days AZITHROMYCIN 33446346234 No Longer Active Piotr Daley DO Active PROAIR HFA 108 (90 BASE) MCG/ACT INHALATION AEROSOL SOLUTION 1-2 puffs four times a day as needed ALBUTEROL SULFATE 37019251841 No Longer Active Emelyn Norris Active DOXYCYCLINE HYCLATE 100 MG ORAL CAPSULE 1 cap by mouth BID x10 days DOXYCYCLINE HYCLATE 60011907389 No Longer Active Nella Harris APRN Active PREDNISONE 20 MG ORAL TABLET 2 tabs daily for 3 days, 1 tab daily for 3 days, 1/2 tab daily for 2 days PREDNISONE 39152459461 No Longer Active Matthew Rangel MD Active TRAMADOL HCL 50 MG ORAL TABLET 1 po tid with ES Tylenol TRAMADOL HCL 73017873511 No Longer Active Matthew Rangel MD Active GABAPENTIN 300 MG ORAL CAPSULE 1 po q hs for nerve pain GABAPENTIN 60575584409 No Longer Active Matthew Rangel MD Active PREDNISONE 20 MG ORAL TABLET 2 tablets today, then 1 tablet days 2 through 4 PREDNISONE 25956074152 No Longer Active Piotr Daley DO Active AZITHROMYCIN 250 MG ORAL TABLET 2 po qd x 1 day, then 1 po qd x 4 days 07/12 AZITHROMYCIN 54445580178 No Longer Active Piotr Daley DO Active IBUPROFEN 800 MG ORAL TABLET 1 tab every 8 hours as needed 07/12 IBUPROFEN 30844456359 No Longer Active Piotr Daley DO Active LOMOTIL 2.5-0.025 MG ORAL TABLET 1 to 2 four times a day as needed for diarrhea DIPHENOXYLATE-ATROPINE 57105176610 No Longer Active Piotr Daley DO Active WARFARIN SODIUM 4 MG ORAL TABLET 1 tab every evening WARFARIN SODIUM 61639447347 No Longer Active Piotr Daley DO Active PREDNISONE 20 MG ORAL TABLET 1 tablet twice daily for 2 days, then 1 tablet once daily for 2 days PREDNISONE 94468752703 No Longer Active Piotr Daley DO Active PROMETHAZINE HCL 25 MG ORAL TABLET 1 four times a day as needed for nausea/ vomiting PROMETHAZINE HCL 67757950417 No Longer Active Piotr Daley DO Active TUSSIONEX PENNKINETIC ER 10-8 MG/5ML ORAL SUSPENSION EXTENDED RELEASE 5ml po q12hr PRN Cough HYDROCOD POLST-CHLORPHEN POLST 17071852457 No Longer Active Piotr Daley DO Active AZITHROMYCIN 250 MG ORAL TABLET 2 po qd x 1 day, then 1 po qd x 4 days 10/13 AZITHROMYCIN 96456694285 No Longer Active Piotr Daley DO Active AZITHROMYCIN 250 MG ORAL TABLET 2 po qd x 1 day, then 1 po qd x 4 days 05/07 AZITHROMYCIN 47905687863 No Longer Active Piotr Daley DO Active LISINOPRIL-HYDROCHLOROTHIAZIDE 10-12.5 MG ORAL TABLET 1 tab by mouth daily LISINOPRIL-HYDROCHLOROTHIAZIDE 10008797110 Active Piotr Daley DO Active LISINOPRIL 10 MG ORAL TABLET 1/2-1 tab po every other day LISINOPRIL 74583836302 No Longer Active Piotr Daley DO Active VENTOLIN HFA 108 (90 Base) MCG/ACT INHALATION AEROSOL SOLUTION 2 puffs four times a day PRN cough ALBUTEROL SULFATE 72264277779 No Longer Active Piotr Daley DO Active NYSTATIN-TRIAMCINOLONE 982046-0.1 UNIT/GM-% EXTERNAL CREAM Apply to area BID NYSTATIN-TRIAMCINOLONE 01869958244 No Longer Active Alena Chavira DIRECTOR ELECTRONICS Active PHISOHEX 3 % LIQD Use Directed HEXACHLOROPHENE 04012578583 No Longer Active Sandra [place] Active AZITHROMYCIN 250 MG ORAL TABLET 2 po qd x 1 day, then 1 po qd x 4 days 10/21 AZITHROMYCIN 15806699168 No Longer Active Katrina Rinaldi MD PhD Active AZITHROMYCIN 250 MG ORAL TABLET 2 po qd x 1 day, then 1 po qd x 4 days 10/16 AZITHROMYCIN 25919709394 No Longer Active Piotr Daley DO Active AZITHROMYCIN 500 MG INTRAVENOUS SOLUTION RECONSTITUTED 1 po q day AZITHROMYCIN 70883805668 No Longer Active Piotr Daley DO Active NYSTATIN-TRIAMCINOLONE 649235-5.1 UNIT/GM-% EXTERNAL CREAM apply bid NYSTATIN-TRIAMCINOLONE 62646529836 No Longer Active Piotr Daley DO Active IBUPROFEN 800 MG ORAL TABLET 1 po q 8 hours prn pain sparinly IBUPROFEN 01163213147 No Longer Active Piotr Daley DO Active VITAMIN D3 5000 UNIT ORAL CAPSULE 1 po daily CHOLECALCIFEROL 73255902891 Active Piotr Daley DO Active IBUPROFEN 800 MG ORAL TABLET 1 po q 8 hours prn pain sparinly IBUPROFEN 800 MG ORAL TABLET 712456 IBUPROFEN Inactive NYSTATIN-TRIAMCINOLONE 267487-6.1 UNIT/GM-% EXTERNAL CREAM apply bid NYSTATIN-TRIAMCINOLONE 859967-7.1 UNIT/GM-% EXTERNAL CREAM 8927275 NYSTATIN-TRIAMCINOLONE Inactive AZITHROMYCIN 500 MG INTRAVENOUS SOLUTION RECONSTITUTED 1 po q day AZITHROMYCIN 500 MG INTRAVENOUS SOLUTION RECONSTITUTED 77779747799 AZITHROMYCIN Inactive VENTOLIN HFA 108 (90 Base) MCG/ACT INHALATION AEROSOL SOLUTION 2 puffs four times a day PRN cough VENTOLIN HFA 108 (90 Base) MCG/ ACT INHALATION AEROSOL SOLUTION ALBUTEROL SULFATE Inactive LISINOPRIL 10 MG ORAL TABLET 1/2-1 tab po every other day LISINOPRIL 10 MG ORAL TABLET 373284 LISINOPRIL Inactive TUSSIONEX PENNKINETIC ER 10-8 MG/5ML ORAL SUSPENSION EXTENDED RELEASE 5ml po q12hr PRN Cough TUSSIONEX PENNKINETIC ER 10-8 MG/5ML ORAL SUSPENSION EXTENDED RELEASE HYDROCOD POLST-CHLORPHEN POLST Inactive PROMETHAZINE HCL 25 MG ORAL TABLET 1 four times a day as needed for nausea/ vomiting PROMETHAZINE HCL 25 MG ORAL TABLET 639258 PROMETHAZINE HCL Inactive PREDNISONE 20 MG ORAL TABLET 1 tablet twice daily for 2 days, then 1 tablet once daily for 2 days PREDNISONE 20 MG ORAL TABLET 792912 PREDNISONE Inactive WARFARIN SODIUM 4 MG ORAL TABLET 1 tab every evening WARFARIN SODIUM 4 MG ORAL TABLET 137707 WARFARIN SODIUM Inactive LOMOTIL 2.5-0.025 MG ORAL TABLET 1 to 2 four times a day as needed for diarrhea LOMOTIL 2.5-0.025 MG ORAL TABLET 0056334 DIPHENOXYLATE-ATROPINE Inactive IBUPROFEN 800 MG ORAL TABLET 1 tab every 8 hours as needed 07/12 IBUPROFEN 800 MG ORAL TABLET 376003 IBUPROFEN Inactive PREDNISONE 20 MG ORAL TABLET 2 tablets today, then 1 tablet days 2 through 4 PREDNISONE 20 MG ORAL TABLET 322953 PREDNISONE Inactive GABAPENTIN 300 MG ORAL CAPSULE 1 po q hs for nerve pain GABAPENTIN 300 MG ORAL CAPSULE 321849 GABAPENTIN Inactive TRAMADOL HCL 50 MG ORAL TABLET 1 po tid with ES Tylenol TRAMADOL HCL 50 MG ORAL TABLET 962788 TRAMADOL HCL Inactive PROAIR HFA 108 (90 BASE) MCG/ACT INHALATION AEROSOL SOLUTION 1-2 puffs four times a day as needed PROAIR HFA 108 (90 BASE) MCG/ACT INHALATION AEROSOL SOLUTION ALBUTEROL SULFATE Inactive PREDNISONE 20 MG ORAL TABLET two tabs by mouth today, then one tab by mouth days two and three PREDNISONE 20 MG ORAL TABLET 847733 PREDNISONE Inactive TESSALON PERLES 100 MG ORAL CAPSULE 1-2 tablet by mouth 3 times daily 04/16 TESSALON PERLES 100 MG ORAL CAPSULE 098951 BENZONATATE Inactive PREDNISONE 10 MG ORAL TABLET 1 tablet by mouth daily PREDNISONE 10 MG ORAL TABLET 190537 PREDNISONE Inactive AZITHROMYCIN 250 MG ORAL TABLET 2 po qd x 1 day, then 1 po qd x 4 days 10/16 AZITHROMYCIN 250 MG ORAL TABLET 628539 AZITHROMYCIN Inactive AZITHROMYCIN 250 MG ORAL TABLET 2 po qd x 1 day, then 1 po qd x 4 days 10/21 AZITHROMYCIN 250 MG ORAL TABLET 384311 AZITHROMYCIN Inactive NYSTATIN-TRIAMCINOLONE 818125-6.1 UNIT/GM-% EXTERNAL CREAM Apply to area BID NYSTATIN-TRIAMCINOLONE 872384-4.1 UNIT/GM-% EXTERNAL CREAM 1445438 NYSTATIN-TRIAMCINOLONE Inactive AZITHROMYCIN 250 MG ORAL TABLET 2 po qd x 1 day, then 1 po qd x 4 days 05/07 AZITHROMYCIN 250 MG ORAL TABLET 581580 AZITHROMYCIN Inactive AZITHROMYCIN 250 MG ORAL TABLET 2 po qd x 1 day, then 1 po qd x 4 days 10/13 AZITHROMYCIN 250 MG ORAL TABLET 868150 AZITHROMYCIN Inactive AZITHROMYCIN 250 MG ORAL TABLET 2 po qd x 1 day, then 1 po qd x 4 days 07/12 AZITHROMYCIN 250 MG ORAL TABLET 819101 AZITHROMYCIN Inactive PREDNISONE 20 MG ORAL TABLET 2 tabs daily for 3 days, 1 tab daily for 3 days, 1/2 tab daily for 2 days PREDNISONE 20 MG ORAL TABLET 542521 PREDNISONE Inactive DOXYCYCLINE HYCLATE 100 MG ORAL CAPSULE 1 cap by mouth BID x10 days DOXYCYCLINE HYCLATE 100 MG ORAL CAPSULE 3544061 DOXYCYCLINE HYCLATE Inactive ZITHROMAX 250 MG ORAL TABLET Take two (2 ) tablets day one, then one (1) tablet a day for four (4) more days ZITHROMAX 250 MG ORAL TABLET 820861 AZITHROMYCIN Inactive Advance Directives Directive Description Start [...] Measured Encounters Code Encounter Date Provider Facility CPT-39861 [id number] Vst-Est Level III 14:29:05 CDT Piotr Wilson [facility] CPT-70122 Level 3 Est. Patient 15:59:25 [employer] Piotr Daley [facility] CPT-93717 Level 3 Est. Patient 12:33:59 [employer] Piotr Wilson [facility] CPT-11029 Level 3 Est. Patient 15:56:17 [employer] Piotr Daley [facility] CPT-41461 Level 3 Est. Patient 10:34:54 [employer] Piotr Wilson [facility] CPT-90392 Level 3 Est. Patient 17:10:19 CDT Nella Harris APRN [facility] CPT-67384 Level 3 Est. Patient 10:48:17 [employer] Matthew Rangel MD [facility] CPT-04325 Level 4 Est. Patient 17:15:07 [employer]IVER Piotr Daley [facility] CPT-09595 Level 3 Est. Patient 12:46:13 [employer]IVER Piotr Daley [facility] CPT-72407 Level 3 Est. Patient 15:14:31 [employer] DRIVER Piotr Daley [facility] CPT-82431 Level 3 Est. Patient 09:20:13 [employer] DRIVER Piotr Daley [facility] CPT-26423 Level 3 Est. Patient 09:49:40 CDT Piotr Wilson [facility] CPT-17229 Level 3 Est. Patient 16:28:11 CDT Piotr Daley [facility] CPT-66996 Level 3 Est. Patient 12:41:58 [employer]IVER Piotr Daley [facility] CPT-68295 Level 3 Est. Patient 09:21:24 CDT Piotr Daley [facility] CPT-72565 Level 3 Est. Patient 09:21:11 CDT Piotr Daley [facility] CPT-86608 Level 3 Est. Patient 11:16:29 [employer]IVER Piotr Daley [facility] CPT-15832 Level 3 Est. Patient 18:40:19 [employer] DRIVER Piotr Daley [facility] CPT-84678 Level 3 Est. Patient 19:30:50 CDT Piotr Daley [facility] CPT-47063 Level 3 Est. Patient 22:06:44 CDT Katrina Rinaldi MD [facility] CPT-68904 Level 3 Est. Patient 14:20:00 CDT Piotr Katie Daley [facility] CPT-74499 Level 3 Est. Patient 14:15:22 [employer]IVER Piotr Katie Daley [facility] CPT-92541 Level 3 Est. Patient 20:19:57 [employer]IVER Piotr Katie Daley [facility] CPT-39936 Level 3 Est. Patient 16:44:32 CDT Piotr Katie Edi [facility] CPT-11317 Level 3 Est. Patient 08:48:46 [employer]IVER Piotr Wilson Edi [facility] CPT-72465 Level 3 Est. Patient 21:01:21 CDT Piotr Daley [facility] Procedures Code Procedure Name Date Entry Date Standard Description CPT-45729 Sacroiliac jt < 3V - XRAY USE ONLY 16:45:19 [employer] 05/09 CPT-72319 LS spine comp w obliques - XRAY USE ONLY 14:52:26 [employer] CPT-74160 Chest, 2 views 12:55:58 [employer] CPT-G0439 Subsequent Annual Wellness Exam 10:34:52 [employer] CPT-75688 BMP - LAB USE ONLY 17:19:11 [employer] CPT-98883 PT/INR - LAB USE ONLY 17:19:10 [employer] CPT-29831 Venipuncture Draw Fee 17:19:10 [employer]IVER CPT-84238 PT/INR - LAB USE ONLY 08:12:25 [employer]IVER CPT-71394 Venipuncture Draw Fee 08:12:24 [employer]IVER CPT-43049 Venipuncture Draw Fee 11:31:07 [employer] DRIVER CPT-66658 TPSA - LAB USE ONLY 11:31:07 [employer]IVER CPT-49233 PT/INR - LAB USE ONLY 11:31:07 [employer]IVER CPT-G0439 Subsequent Annual Wellness Exam 09:59:29 [employer]IVER CPT-10433 Creatinine - LAB USE ONLY 14:37:55 [employer]IVER CPT-10053 PT/INR - LAB USE ONLY 14:37:55 [employer]IVER CPT-78304 Venipuncture Draw Fee 14:37:55 [employer]IVER CPT-43995 LS spine comp w obliques - XRAY USE ONLY 12:59:25 [employer] CPT-41700 PT/INR - LAB USE ONLY 13:49:20 CDT CPT-64811 Venipuncture Draw Fee 13:49:19 CDT CPT-14719 PT/INR - LAB USE ONLY 15:48:49 CDT CPT-35220 Venipuncture Draw Fee 15:48:49 CDT CPT-82268 Venipuncture Draw Fee 11:31:59 CDT CPT-69742 PT/INR - LAB USE ONLY 11:31:59 CDT CPT-84617 Venipuncture Draw Fee 13:29:15 CDT CPT-96638 Thoracolumbar AP/Lat 15:19:19 [employer] CPT-G0438 Initial Annual Wellness Exam 12:18:54 [employer]IVER CPT-88773 Knee 3V 09:57:38 CDT CPT-OV Office Visit 15:45:01 [employer] CPT-36416 Abd compl w upright 17:10:25 CDT
[2018-07-18] MEDS ORDERED: LACTATED RINGERS 1,000 ML IV PRN (09:09)
--- OUTSIDE RECORDS SUMMARY | 2018-07-18 09:09 | XMS REPORT | Clinical Summary ---
Author Author Admin, [employer] Address Unknown Phone Unavailable Allergies, Adverse Reactions, [...] atherosclerosis of unspecified type of vessel, [place] or graft Back pain, thoracic region, left [...] Leg pain, right ICD-729.5 Inactive Sirisha Chen VIDEOTAPE OPERATOR Right leg pain ICD-729.5 Inactive Sirisha Chen VIDEOTAPE OPERATOR Bronchitis-Acute ICD-466.0 Inactive Sirisha Chen VIDEOTAPE OPERATOR Knee pain, left ICD-719.46 Inactive Sirisha Chen VIDEOTAPE OPERATOR Actinic keratoses ICD-702.0 Inactive Sirisha Chen VIDEOTAPE OPERATOR Back pain, thoracic region, left ICD-724.1 Inactive Piotr Daley DO Thoracic back pain ICD-724.5 Inactive Sirisha Chen VIDEOTAPE OPERATOR Back pain lumbar ICD-724.2 Inactive Sirisha Chen VIDEOTAPE OPERATOR Insect bite ICD-919.4 Inactive Sirisha Chen VIDEOTAPE OPERATOR Pruritus ICD-698.9 Inactive Sirisha Chen VIDEOTAPE OPERATOR 04/09 Bronchitis-Acute ICD-466.0 Inactive Sirisha Chen VIDEOTAPE OPERATOR Dyspnea ICD-786.09 Inactive Sirisha Chen VIDEOTAPE OPERATOR 05/09 Medication List Medication Instructions Start Date Stop Date Generic Name NDC Status Provider Patient Instruction NYSTATIN 840169 UNIT/GM EXTERNAL CREAM Apply to rash 2-3 times a day and may repeat as needed NYSTATIN 60537268644 Active Sirisha Chen VIDEOTAPE OPERATOR Active TRIAMCINOLONE ACETONIDE 0.1 % EXTERNAL CREAM apply bid sparingly to rash 2017 TRIAMCINOLONE ACETONIDE 41125223766 Active Sirisha Chen VIDEOTAPE OPERATOR Active WARFARIN SODIUM 4 MG ORAL TABLET 1 tablet by mouth daily WARFARIN SODIUM 29548544701 Active Sirisha Chen VIDEOTAPE OPERATOR Active MELOXICAM 15 MG ORAL TABLET 1 po q day for pain with food MELOXICAM 37990864730 Active Piotr Daley DO Active PREDNISONE 10 MG ORAL TABLET 1 tablet by mouth daily PREDNISONE 52940970457 No Longer Active Emelyn Norris Active TESSALON PERLES 100 MG ORAL CAPSULE 1-2 tablet by mouth 3 times daily 04/16 BENZONATATE 25119918642 No Longer Active Emelyn Norris Active PREDNISONE 20 MG ORAL TABLET two tabs by mouth today, then one tab by mouth days two and three PREDNISONE 62726152670 No Longer Active Piotr Daley DO Active CYCLOBENZAPRINE HCL 10 MG ORAL TABLET 1 tablet by mouth three times daily as needed for muscle spasm/pain CYCLOBENZAPRINE HCL 91088718507 Active Sirisha Chen LPN Active ZITHROMAX 250 MG ORAL TABLET Take two (2 ) tablets day one, then one (1) tablet a day for four (4) more days AZITHROMYCIN 33440188114 No Longer Active Piotr Daley DO Active PROAIR HFA 108 (90 BASE) MCG/ACT INHALATION AEROSOL SOLUTION 1-2 puffs four times a day as needed ALBUTEROL SULFATE 48787450932 No Longer Active Emelyn Norris Active DOXYCYCLINE HYCLATE 100 MG ORAL CAPSULE 1 cap by mouth BID x10 days DOXYCYCLINE HYCLATE 06973009098 No Longer Active Nella Harris APRN Active PREDNISONE 20 MG ORAL TABLET 2 tabs daily for 3 days, 1 tab daily for 3 days, 1/2 tab daily for 2 days PREDNISONE 49700170746 No Longer Active Matthew Rangel MD Active TRAMADOL HCL 50 MG ORAL TABLET 1 po tid with ES Tylenol TRAMADOL HCL 08742265056 No Longer Active Matthew Rangel MD Active GABAPENTIN 300 MG ORAL CAPSULE 1 po q hs for nerve pain GABAPENTIN 68121835527 No Longer Active Matthew Rangel MD Active PREDNISONE 20 MG ORAL TABLET 2 tablets today, then 1 tablet days 2 through 4 PREDNISONE 04078217575 No Longer Active Piotr Daley DO Active AZITHROMYCIN 250 MG ORAL TABLET 2 po qd x 1 day, then 1 po qd x 4 days 07/12 AZITHROMYCIN 74922225461 No Longer Active Piotr Daley DO Active IBUPROFEN 800 MG ORAL TABLET 1 tab every 8 hours as needed 07/12 IBUPROFEN 53406195397 No Longer Active Piotr Daley DO Active LOMOTIL 2.5-0.025 MG ORAL TABLET 1 to 2 four times a day as needed for diarrhea DIPHENOXYLATE-ATROPINE 55533712688 No Longer Active Piotr Daley DO Active WARFARIN SODIUM 4 MG ORAL TABLET 1 tab every evening WARFARIN SODIUM 35677088895 No Longer Active Piotr Daley DO Active PREDNISONE 20 MG ORAL TABLET 1 tablet twice daily for 2 days, then 1 tablet once daily for 2 days PREDNISONE 44218391947 No Longer Active Piotr Daley DO Active PROMETHAZINE HCL 25 MG ORAL TABLET 1 four times a day as needed for nausea/ vomiting PROMETHAZINE HCL 94664807540 No Longer Active Piotr Daley DO Active TUSSIONEX PENNKINETIC ER 10-8 MG/5ML ORAL SUSPENSION EXTENDED RELEASE 5ml po q12hr PRN Cough HYDROCOD POLST-CHLORPHEN POLST 50392040077 No Longer Active Piotr Daley DO Active AZITHROMYCIN 250 MG ORAL TABLET 2 po qd x 1 day, then 1 po qd x 4 days 10/13 AZITHROMYCIN 05495516479 No Longer Active Piotr Daley DO Active AZITHROMYCIN 250 MG ORAL TABLET 2 po qd x 1 day, then 1 po qd x 4 days 05/07 AZITHROMYCIN 54709512221 No Longer Active Piotr Daley DO Active LISINOPRIL-HYDROCHLOROTHIAZIDE 10-12.5 MG ORAL TABLET 1 tab by mouth daily LISINOPRIL-HYDROCHLOROTHIAZIDE 81138320906 Active Piotr Daley DO Active LISINOPRIL 10 MG ORAL TABLET 1/2-1 tab po every other day LISINOPRIL 19741498696 No Longer Active Piotr Daley DO Active VENTOLIN HFA 108 (90 Base) MCG/ACT INHALATION AEROSOL SOLUTION 2 puffs four times a day PRN cough ALBUTEROL SULFATE 60368875942 No Longer Active Piotr Daley DO Active NYSTATIN-TRIAMCINOLONE 774212-2.1 UNIT/GM-% EXTERNAL CREAM Apply to area BID NYSTATIN-TRIAMCINOLONE 90421774772 No Longer Active Alena Chavira VIDEOTAPE OPERATOR Active PHISOHEX 3 % LIQD Use Directed HEXACHLOROPHENE 37995635018 No Longer Active Sandra Nineveh Active AZITHROMYCIN 250 MG ORAL TABLET 2 po qd x 1 day, then 1 po qd x 4 days 10/21 AZITHROMYCIN 00350649432 No Longer Active Katrina Rinaldi MD PhD Active AZITHROMYCIN 250 MG ORAL TABLET 2 po qd x 1 day, then 1 po qd x 4 days 10/16 AZITHROMYCIN 99744642613 No Longer Active Piotr Daley DO Active AZITHROMYCIN 500 MG INTRAVENOUS SOLUTION RECONSTITUTED 1 po q day AZITHROMYCIN 29545471513 No Longer Active Piotr Daley DO Active NYSTATIN-TRIAMCINOLONE 906361-6.1 UNIT/GM-% EXTERNAL CREAM apply bid NYSTATIN-TRIAMCINOLONE 52823489268 No Longer Active Piotr Daley DO Active IBUPROFEN 800 MG ORAL TABLET 1 po q 8 hours prn pain sparinly IBUPROFEN 05020667123 No Longer Active Piotr Daley DO Active VITAMIN D3 5000 UNIT ORAL CAPSULE 1 po daily CHOLECALCIFEROL 11307944980 Active Piotr Daley DO Active IBUPROFEN 800 MG ORAL TABLET 1 po q 8 hours prn pain sparinly IBUPROFEN 800 MG ORAL TABLET 864277 IBUPROFEN Inactive NYSTATIN-TRIAMCINOLONE 958706-4.1 UNIT/GM-% EXTERNAL CREAM apply bid NYSTATIN-TRIAMCINOLONE 488853-6.1 UNIT/GM-% EXTERNAL CREAM 4662660 NYSTATIN-TRIAMCINOLONE Inactive AZITHROMYCIN 500 MG INTRAVENOUS SOLUTION RECONSTITUTED 1 po q day AZITHROMYCIN 500 MG INTRAVENOUS SOLUTION RECONSTITUTED 49369157107 AZITHROMYCIN Inactive VENTOLIN HFA 108 (90 Base) MCG/ACT INHALATION AEROSOL SOLUTION 2 puffs four times a day PRN cough VENTOLIN HFA 108 (90 Base) MCG/ ACT INHALATION AEROSOL SOLUTION ALBUTEROL SULFATE Inactive LISINOPRIL 10 MG ORAL TABLET 1/2-1 tab po every other day LISINOPRIL 10 MG ORAL TABLET 860394 LISINOPRIL Inactive TUSSIONEX PENNKINETIC ER 10-8 MG/5ML ORAL SUSPENSION EXTENDED RELEASE 5ml po q12hr PRN Cough TUSSIONEX PENNKINETIC ER 10-8 MG/5ML ORAL SUSPENSION EXTENDED RELEASE HYDROCOD POLST-CHLORPHEN POLST Inactive PROMETHAZINE HCL 25 MG ORAL TABLET 1 four times a day as needed for nausea/ vomiting PROMETHAZINE HCL 25 MG ORAL TABLET 391830 PROMETHAZINE HCL Inactive PREDNISONE 20 MG ORAL TABLET 1 tablet twice daily for 2 days, then 1 tablet once daily for 2 days PREDNISONE 20 MG ORAL TABLET 954934 PREDNISONE Inactive WARFARIN SODIUM 4 MG ORAL TABLET 1 tab every evening WARFARIN SODIUM 4 MG ORAL TABLET 314919 WARFARIN SODIUM Inactive LOMOTIL 2.5-0.025 MG ORAL TABLET 1 to 2 four times a day as needed for diarrhea LOMOTIL 2.5-0.025 MG ORAL TABLET 6771934 DIPHENOXYLATE-ATROPINE Inactive IBUPROFEN 800 MG ORAL TABLET 1 tab every 8 hours as needed 07/12 IBUPROFEN 800 MG ORAL TABLET 042075 IBUPROFEN Inactive PREDNISONE 20 MG ORAL TABLET 2 tablets today, then 1 tablet days 2 through 4 PREDNISONE 20 MG ORAL TABLET 552213 PREDNISONE Inactive GABAPENTIN 300 MG ORAL CAPSULE 1 po q hs for nerve pain GABAPENTIN 300 MG ORAL CAPSULE 393275 GABAPENTIN Inactive TRAMADOL HCL 50 MG ORAL TABLET 1 po tid with ES Tylenol TRAMADOL HCL 50 MG ORAL TABLET 247403 TRAMADOL HCL Inactive PROAIR HFA 108 (90 BASE) MCG/ACT INHALATION AEROSOL SOLUTION 1-2 puffs four times a day as needed PROAIR HFA 108 (90 BASE) MCG/ACT INHALATION AEROSOL SOLUTION ALBUTEROL SULFATE Inactive PREDNISONE 20 MG ORAL TABLET two tabs by mouth today, then one tab by mouth days two and three PREDNISONE 20 MG ORAL TABLET 905333 PREDNISONE Inactive TESSALON PERLES 100 MG ORAL CAPSULE 1-2 tablet by mouth 3 times daily 04/16 TESSALON PERLES 100 MG ORAL CAPSULE 963822 BENZONATATE Inactive PREDNISONE 10 MG ORAL TABLET 1 tablet by mouth daily PREDNISONE 10 MG ORAL TABLET 841822 PREDNISONE Inactive AZITHROMYCIN 250 MG ORAL TABLET 2 po qd x 1 day, then 1 po qd x 4 days 10/16 AZITHROMYCIN 250 MG ORAL TABLET 694994 AZITHROMYCIN Inactive AZITHROMYCIN 250 MG ORAL TABLET 2 po qd x 1 day, then 1 po qd x 4 days 10/21 AZITHROMYCIN 250 MG ORAL TABLET 883917 AZITHROMYCIN Inactive NYSTATIN-TRIAMCINOLONE 431466-6.1 UNIT/GM-% EXTERNAL CREAM Apply to area BID NYSTATIN-TRIAMCINOLONE 214147-8.1 UNIT/GM-% EXTERNAL CREAM 6865166 NYSTATIN-TRIAMCINOLONE Inactive AZITHROMYCIN 250 MG ORAL TABLET 2 po qd x 1 day, then 1 po qd x 4 days 05/07 AZITHROMYCIN 250 MG ORAL TABLET 291645 AZITHROMYCIN Inactive AZITHROMYCIN 250 MG ORAL TABLET 2 po qd x 1 day, then 1 po qd x 4 days 10/13 AZITHROMYCIN 250 MG ORAL TABLET 719962 AZITHROMYCIN Inactive AZITHROMYCIN 250 MG ORAL TABLET 2 po qd x 1 day, then 1 po qd x 4 days 07/12 AZITHROMYCIN 250 MG ORAL TABLET 633887 AZITHROMYCIN Inactive PREDNISONE 20 MG ORAL TABLET 2 tabs daily for 3 days, 1 tab daily for 3 days, 1/2 tab daily for 2 days PREDNISONE 20 MG ORAL TABLET 439053 PREDNISONE Inactive DOXYCYCLINE HYCLATE 100 MG ORAL CAPSULE 1 cap by mouth BID x10 days DOXYCYCLINE HYCLATE 100 MG ORAL CAPSULE 3341616 DOXYCYCLINE HYCLATE Inactive ZITHROMAX 250 MG ORAL TABLET Take two (2 ) tablets day one, then one (1) tablet a day for four (4) more days ZITHROMAX 250 MG ORAL TABLET 165606 AZITHROMYCIN Inactive Advance Directives Directive Description Start [...] Measured Encounters Code Encounter Date Provider Facility CPT-55415 [id number] Vst-Est Level III 14:29:05 CDT Piotr Wilson [facility] CPT-10051 Level 3 Est. Patient 15:59:25 TERRITORY REPRESENTATIVE Piotr Daley [facility] CPT-19242 Level 3 Est. Patient 12:33:59 TERRITORY REPRESENTATIVE Piotr Daley [facility] CPT-03074 Level 3 Est. Patient 15:56:17 TERRITORY REPRESENTATIVE Piotr Daley [facility] CPT-96984 Level 3 Est. Patient 10:34:54 TERRITORY REPRESENTATIVE Piotr Wilson [facility] CPT-75827 Level 3 Est. Patient 17:10:19 CDT Nella Harris APRN [facility] CPT-04473 Level 3 Est. Patient 10:48:17 TERRITORY REPRESENTATIVE Matthew Rangel MD [facility] CPT-72531 Level 4 Est. Patient 17:15:07 TERRITORY REPRESENTATIVE Piotr Daley [facility] CPT-37781 Level 3 Est. Patient 12:46:13 TERRITORY REPRESENTATIVE Piort Daley [facility] CPT-83471 Level 3 Est. Patient 15:14:31 TERRITORY REPRESENTATIVE Piotr Daley [facility] CPT-76869 Level 3 Est. Patient 09:20:13 TERRITORY REPRESENTATIVE Piotr Daley [facility] CPT-89835 Level 3 Est. Patient 09:49:40 CDT Piotr Wilson [facility] CPT-76556 Level 3 Est. Patient 16:28:11 CDT Piotr Daley [facility] CPT-99137 Level 3 Est. Patient 12:41:58 TERRITORY REPRESENTATIVE Piotr Daley [facility] CPT-95714 Level 3 Est. Patient 09:21:24 CDT Piotr Daley [facility] CPT-23752 Level 3 Est. Patient 09:21:11 CDT Piotr Daley [facility] CPT-30461 Level 3 Est. Patient 11:16:29 TERRITORY REPRESENTATIVE Piotr Daley [facility] CPT-36232 Level 3 Est. Patient 18:40:19 TERRITORY REPRESENTATIVE Piotr Daley [facility] CPT-73573 Level 3 Est. Patient 19:30:50 CDT Piotr Daley [facility] CPT-08261 Level 3 Est. Patient 22:06:44 CDT Katrina Rinaldi MD [facility] CPT-20533 Level 3 Est. Patient 14:20:00 CDT Piotr Katie Daley [facility] CPT-73155 Level 3 Est. Patient 14:15:22 TERRITORY REPRESENTATIVE Piotr Daley [facility] CPT-59339 Level 3 Est. Patient 20:19:57 TERRITORY REPRESENTATIVE Piotr Daley [facility] CPT-88100 Level 3 Est. Patient 16:44:32 CDT Piotr Katie Edi [facility] CPT-92901 Level 3 Est. Patient 08:48:46 TERRITORY REPRESENTATIVE Piotr Katie Edi [facility] CPT-22695 Level 3 Est. Patient 21:01:21 CDT Piotr Daley [facility] Procedures Code Procedure Name Date Entry Date Standard Description CPT-31524 Sacroiliac jt < 3V - XRAY USE ONLY 16:45:19 TERRITORY REPRESENTATIVE 05/09 CPT-24837 LS spine comp w obliques - XRAY USE ONLY 14:52:26 TERRITORY REPRESENTATIVE CPT-49759 Chest, 2 views 12:55:58 TERRITORY REPRESENTATIVE CPT-G0439 Subsequent Annual Wellness Exam 10:34:52 TERRITORY REPRESENTATIVE CPT-59147 BMP - LAB USE ONLY 17:19:11 TERRITORY REPRESENTATIVE CPT-35262 PT/INR - LAB USE ONLY 17:19:10 TERRITORY REPRESENTATIVE CPT-86442 Venipuncture Draw Fee 17:19:10 TERRITORY REPRESENTATIVE CPT-14844 PT/INR - LAB USE ONLY 08:12:25 TERRITORY REPRESENTATIVE CPT-04596 Venipuncture Draw Fee 08:12:24 TERRITORY REPRESENTATIVE CPT-29996 Venipuncture Draw Fee 11:31:07 TERRITORY REPRESENTATIVE CPT-34138 TPSA - LAB USE ONLY 11:31:07 TERRITORY REPRESENTATIVE CPT-06799 PT/INR - LAB USE ONLY 11:31:07 TERRITORY REPRESENTATIVE CPT-G0439 Subsequent Annual Wellness Exam 09:59:29 TERRITORY REPRESENTATIVE CPT-89358 Creatinine - LAB USE ONLY 14:37:55 TERRITORY REPRESENTATIVE CPT-87844 PT/INR - LAB USE ONLY 14:37:55 TERRITORY REPRESENTATIVE CPT-20001 Venipuncture Draw Fee 14:37:55 TERRITORY REPRESENTATIVE CPT-31043 LS spine comp w obliques - XRAY USE ONLY 12:59:25 TERRITORY REPRESENTATIVE CPT-34604 PT/INR - LAB USE ONLY 13:49:20 CDT CPT-94414 Venipuncture Draw Fee 13:49:19 CDT CPT-46762 PT/INR - LAB USE ONLY 15:48:49 CDT CPT-88331 Venipuncture Draw Fee 15:48:49 CDT CPT-77948 Venipuncture Draw Fee 11:31:59 CDT CPT-36470 PT/INR - LAB USE ONLY 11:31:59 CDT CPT-76092 Venipuncture Draw Fee 13:29:15 CDT CPT-89181 Thoracolumbar AP/Lat 15:19:19 TERRITORY REPRESENTATIVE CPT-G0438 Initial Annual Wellness Exam 12:18:54 TERRITORY REPRESENTATIVE CPT-35813 Knee 3V 09:57:38 CDT CPT-OV Office Visit 15:45:01 TERRITORY REPRESENTATIVE CPT-66908 Abd compl w upright 17:10:25 CDT
--- OUTSIDE RECORDS SUMMARY | 2018-07-18 09:10 | XMS REPORT | Clinical Summary ---
Author Author Admin, Bita Organization [employer] Address Unknown Phone Unavailable Allergies, Adverse [...] Coronary atherosclerosis of unspecified type of vessel, kiana or graft Back pain, thoracic region, left [...] Leg pain, right ICD-729.5 Inactive Sirisha Chen [employer]ICENSED [employer] Right leg pain ICD-729.5 Inactive Sirisha Chen [employer] Bronchitis-Acute ICD-466.0 Inactive Sirisha Chen [employer] Knee pain, left ICD-719.46 Inactive Sirisha Chen [employer] Actinic keratoses ICD-702.0 Inactive Sirisha Chen [employer] Back pain, thoracic region, left ICD-724.1 Inactive Piotr Daley DO Thoracic back pain ICD-724.5 Inactive Sirisha Chen [employer] Back pain lumbar ICD-724.2 Inactive Sirisha Chen [employer] Insect bite ICD-919.4 Inactive Sirisha Chen [employer] Pruritus ICD-698.9 Inactive Sirisha Chen [employer]IFE 04/09 Bronchitis-Acute ICD-466.0 Inactive Sirisha Chen [employer] Dyspnea ICD-786.09 Inactive Sirisha Chen [employer]IC[employer]ED [employer]IFE 05/09 Medication List Medication Instructions Start Date Stop Date Generic Name NDC Status Provider Patient Instruction NYSTATIN 872893 UNIT/GM EXTERNAL CREAM Apply to rash 2-3 times a day and may repeat as needed NYSTATIN 57711300951 Active Sirisha Chen [employer] Active TRIAMCINOLONE ACETONIDE 0.1 % EXTERNAL CREAM apply bid sparingly to rash 2017 TRIAMCINOLONE ACETONIDE 99313267244 Active Sirisha Chen [employer] Active WARFARIN SODIUM 4 MG ORAL TABLET 1 tablet by mouth daily WARFARIN SODIUM 21149101969 Active Sirisha Chen [employer]IFE Active MELOXICAM 15 MG ORAL TABLET 1 po q day for pain with food MELOXICAM 33245507306 Active Piotr Daley DO Active PREDNISONE 10 MG ORAL TABLET 1 tablet by mouth daily PREDNISONE 70744477525 No Longer Active Emelyn Norris Active TESSALON PERLES 100 MG ORAL CAPSULE 1-2 tablet by mouth 3 times daily 04/16 BENZONATATE 15843756974 No Longer Active Emelyn Norris Active PREDNISONE 20 MG ORAL TABLET two tabs by mouth today, then one tab by mouth days two and three PREDNISONE 50173485865 No Longer Active Piotr Daley DO Active CYCLOBENZAPRINE HCL 10 MG ORAL TABLET 1 tablet by mouth three times daily as needed for muscle spasm/pain CYCLOBENZAPRINE HCL 36414703933 Active Sirisha Chen LPN Active ZITHROMAX 250 MG ORAL TABLET Take two (2 ) tablets day one, then one (1) tablet a day for four (4) more days AZITHROMYCIN 55692687278 No Longer Active Piotr Daley DO Active PROAIR HFA 108 (90 BASE) MCG/ACT INHALATION AEROSOL SOLUTION 1-2 puffs four times a day as needed ALBUTEROL SULFATE 99100764112 No Longer Active Emelyn Norris Active DOXYCYCLINE HYCLATE 100 MG ORAL CAPSULE 1 cap by mouth BID x10 days DOXYCYCLINE HYCLATE 58413718475 No Longer Active Nella Harris APRN Active PREDNISONE 20 MG ORAL TABLET 2 tabs daily for 3 days, 1 tab daily for 3 days, 1/2 tab daily for 2 days PREDNISONE 64282400184 No Longer Active Matthew Rangel MD Active TRAMADOL HCL 50 MG ORAL TABLET 1 po tid with ES Tylenol TRAMADOL HCL 57806783593 No Longer Active Matthew Rangel MD Active GABAPENTIN 300 MG ORAL CAPSULE 1 po q hs for nerve pain GABAPENTIN 04722952643 No Longer Active Matthew Rangel MD Active PREDNISONE 20 MG ORAL TABLET 2 tablets today, then 1 tablet days 2 through 4 PREDNISONE 35492013210 No Longer Active Piotr Daley DO Active AZITHROMYCIN 250 MG ORAL TABLET 2 po qd x 1 day, then 1 po qd x 4 days 07/12 AZITHROMYCIN 17746926229 No Longer Active Piotr Daley DO Active IBUPROFEN 800 MG ORAL TABLET 1 tab every 8 hours as needed 07/12 IBUPROFEN 89996022016 No Longer Active Piotr Daley DO Active LOMOTIL 2.5-0.025 MG ORAL TABLET 1 to 2 four times a day as needed for diarrhea DIPHENOXYLATE-ATROPINE 20137683857 No Longer Active Piotr Daley DO Active WARFARIN SODIUM 4 MG ORAL TABLET 1 tab every evening WARFARIN SODIUM 25885500069 No Longer Active Piotr Daley DO Active PREDNISONE 20 MG ORAL TABLET 1 tablet twice daily for 2 days, then 1 tablet once daily for 2 days PREDNISONE 30108644462 No Longer Active Piotr Daley DO Active PROMETHAZINE HCL 25 MG ORAL TABLET 1 four times a day as needed for nausea/ vomiting PROMETHAZINE HCL 31570245683 No Longer Active Piotr Daley DO Active TUSSIONEX PENNKINETIC ER 10-8 MG/5ML ORAL SUSPENSION EXTENDED RELEASE 5ml po q12hr PRN Cough HYDROCOD POLST-CHLORPHEN POLST 33323363895 No Longer Active Piotr Daley DO Active AZITHROMYCIN 250 MG ORAL TABLET 2 po qd x 1 day, then 1 po qd x 4 days 10/13 AZITHROMYCIN 88961651010 No Longer Active Piotr Daley DO Active AZITHROMYCIN 250 MG ORAL TABLET 2 po qd x 1 day, then 1 po qd x 4 days 05/07 AZITHROMYCIN 19626902974 No Longer Active Piotr Daley DO Active LISINOPRIL-HYDROCHLOROTHIAZIDE 10-12.5 MG ORAL TABLET 1 tab by mouth daily LISINOPRIL-HYDROCHLOROTHIAZIDE 49330386580 Active Piotr Daley DO Active LISINOPRIL 10 MG ORAL TABLET 1/2-1 tab po every other day LISINOPRIL 97021492987 No Longer Active Piotr Daley DO Active VENTOLIN HFA 108 (90 Base) MCG/ACT INHALATION AEROSOL SOLUTION 2 puffs four times a day PRN cough ALBUTEROL SULFATE 06828655116 No Longer Active Piotr Daley DO Active NYSTATIN-TRIAMCINOLONE 908427-3.1 UNIT/GM-% EXTERNAL CREAM Apply to area BID NYSTATIN-TRIAMCINOLONE 53767407396 No Longer Active Alena Chavira [employer]ENSED [employer]IFE Active PHISOHEX 3 % LIQD Use Directed HEXACHLOROPHENE 35041859636 No Longer Active Sandra Rising Fawn Active AZITHROMYCIN 250 MG ORAL TABLET 2 po qd x 1 day, then 1 po qd x 4 days 10/21 AZITHROMYCIN 07887654906 No Longer Active Katrina Rinaldi MD PhD Active AZITHROMYCIN 250 MG ORAL TABLET 2 po qd x 1 day, then 1 po qd x 4 days 10/16 AZITHROMYCIN 93328885478 No Longer Active Piotr Daley DO Active AZITHROMYCIN 500 MG INTRAVENOUS SOLUTION RECONSTITUTED 1 po q day AZITHROMYCIN 80926476236 No Longer Active Piotr Daley DO Active NYSTATIN-TRIAMCINOLONE 835071-7.1 UNIT/GM-% EXTERNAL CREAM apply bid NYSTATIN-TRIAMCINOLONE 79641751873 No Longer Active Piotr Daley DO Active IBUPROFEN 800 MG ORAL TABLET 1 po q 8 hours prn pain sparinly IBUPROFEN 78312696826 No Longer Active Piotr Daley DO Active VITAMIN D3 5000 UNIT ORAL CAPSULE 1 po daily CHOLECALCIFEROL 61053045737 Active Piotr Daley DO Active IBUPROFEN 800 MG ORAL TABLET 1 po q 8 hours prn pain sparinly IBUPROFEN 800 MG ORAL TABLET 849986 IBUPROFEN Inactive NYSTATIN-TRIAMCINOLONE 260928-4.1 UNIT/GM-% EXTERNAL CREAM apply bid NYSTATIN-TRIAMCINOLONE 338774-1.1 UNIT/GM-% EXTERNAL CREAM 3281978 NYSTATIN-TRIAMCINOLONE Inactive AZITHROMYCIN 500 MG INTRAVENOUS SOLUTION RECONSTITUTED 1 po q day AZITHROMYCIN 500 MG INTRAVENOUS SOLUTION RECONSTITUTED 92156548967 AZITHROMYCIN Inactive VENTOLIN HFA 108 (90 Base) MCG/ACT INHALATION AEROSOL SOLUTION 2 puffs four times a day PRN cough VENTOLIN HFA 108 (90 Base) MCG/ ACT INHALATION AEROSOL SOLUTION ALBUTEROL SULFATE Inactive LISINOPRIL 10 MG ORAL TABLET 1/2-1 tab po every other day LISINOPRIL 10 MG ORAL TABLET 167782 LISINOPRIL Inactive TUSSIONEX PENNKINETIC ER 10-8 MG/5ML ORAL SUSPENSION EXTENDED RELEASE 5ml po q12hr PRN Cough TUSSIONEX PENNKINETIC ER 10-8 MG/5ML ORAL SUSPENSION EXTENDED RELEASE HYDROCOD POLST-CHLORPHEN POLST Inactive PROMETHAZINE HCL 25 MG ORAL TABLET 1 four times a day as needed for nausea/ vomiting PROMETHAZINE HCL 25 MG ORAL TABLET 776883 PROMETHAZINE HCL Inactive PREDNISONE 20 MG ORAL TABLET 1 tablet twice daily for 2 days, then 1 tablet once daily for 2 days PREDNISONE 20 MG ORAL TABLET 406246 PREDNISONE Inactive WARFARIN SODIUM 4 MG ORAL TABLET 1 tab every evening WARFARIN SODIUM 4 MG ORAL TABLET 428814 WARFARIN SODIUM Inactive LOMOTIL 2.5-0.025 MG ORAL TABLET 1 to 2 four times a day as needed for diarrhea LOMOTIL 2.5-0.025 MG ORAL TABLET 5791559 DIPHENOXYLATE-ATROPINE Inactive IBUPROFEN 800 MG ORAL TABLET 1 tab every 8 hours as needed 07/12 IBUPROFEN 800 MG ORAL TABLET 658683 IBUPROFEN Inactive PREDNISONE 20 MG ORAL TABLET 2 tablets today, then 1 tablet days 2 through 4 PREDNISONE 20 MG ORAL TABLET 764487 PREDNISONE Inactive GABAPENTIN 300 MG ORAL CAPSULE 1 po q hs for nerve pain GABAPENTIN 300 MG ORAL CAPSULE 429225 GABAPENTIN Inactive TRAMADOL HCL 50 MG ORAL TABLET 1 po tid with ES Tylenol TRAMADOL HCL 50 MG ORAL TABLET 941268 TRAMADOL HCL Inactive PROAIR HFA 108 (90 BASE) MCG/ACT INHALATION AEROSOL SOLUTION 1-2 puffs four times a day as needed PROAIR HFA 108 (90 BASE) MCG/ACT INHALATION AEROSOL SOLUTION ALBUTEROL SULFATE Inactive PREDNISONE 20 MG ORAL TABLET two tabs by mouth today, then one tab by mouth days two and three PREDNISONE 20 MG ORAL TABLET 928807 PREDNISONE Inactive TESSALON PERLES 100 MG ORAL CAPSULE 1-2 tablet by mouth 3 times daily 04/16 TESSALON PERLES 100 MG ORAL CAPSULE 316309 BENZONATATE Inactive PREDNISONE 10 MG ORAL TABLET 1 tablet by mouth daily PREDNISONE 10 MG ORAL TABLET 171134 PREDNISONE Inactive AZITHROMYCIN 250 MG ORAL TABLET 2 po qd x 1 day, then 1 po qd x 4 days 10/16 AZITHROMYCIN 250 MG ORAL TABLET 943566 AZITHROMYCIN Inactive AZITHROMYCIN 250 MG ORAL TABLET 2 po qd x 1 day, then 1 po qd x 4 days 10/21 AZITHROMYCIN 250 MG ORAL TABLET 642681 AZITHROMYCIN Inactive NYSTATIN-TRIAMCINOLONE 631507-7.1 UNIT/GM-% EXTERNAL CREAM Apply to area BID NYSTATIN-TRIAMCINOLONE 662135-9.1 UNIT/GM-% EXTERNAL CREAM 7566988 NYSTATIN-TRIAMCINOLONE Inactive AZITHROMYCIN 250 MG ORAL TABLET 2 po qd x 1 day, then 1 po qd x 4 days 05/07 AZITHROMYCIN 250 MG ORAL TABLET 937442 AZITHROMYCIN Inactive AZITHROMYCIN 250 MG ORAL TABLET 2 po qd x 1 day, then 1 po qd x 4 days 10/13 AZITHROMYCIN 250 MG ORAL TABLET 703176 AZITHROMYCIN Inactive AZITHROMYCIN 250 MG ORAL TABLET 2 po qd x 1 day, then 1 po qd x 4 days 07/12 AZITHROMYCIN 250 MG ORAL TABLET 994920 AZITHROMYCIN Inactive PREDNISONE 20 MG ORAL TABLET 2 tabs daily for 3 days, 1 tab daily for 3 days, 1/2 tab daily for 2 days PREDNISONE 20 MG ORAL TABLET 545986 PREDNISONE Inactive DOXYCYCLINE HYCLATE 100 MG ORAL CAPSULE 1 cap by mouth BID x10 days DOXYCYCLINE HYCLATE 100 MG ORAL CAPSULE 5841009 DOXYCYCLINE HYCLATE Inactive ZITHROMAX 250 MG ORAL TABLET Take two (2 ) tablets day one, then one (1) tablet a day for four (4) more days ZITHROMAX 250 MG ORAL TABLET 740865 AZITHROMYCIN Inactive Advance Directives Directive Description Start [...] Measured Encounters Code Encounter Date Provider Facility CPT-09971 [id number] Vst-Est Level III 14:29:05 CDT Piotr Wilson [facility] CPT-86148 Level 3 Est. Patient 15:59:25 MULTIMEDIA AUTHOR Piotr Daley [facility] CPT-81567 Level 3 Est. Patient 12:33:59 MULTIMEDIA AUTHOR Piotr Daley [facility] CPT-03273 Level 3 Est. Patient 15:56:17 MULTIMEDIA AUTHOR Piotr Daley [facility] CPT-56179 Level 3 Est. Patient 10:34:54 MULTIMEDIA AUTHOR Piotr Wilson [facility] CPT-70170 Level 3 Est. Patient 17:10:19 CDT Nella Harris APRN [facility] CPT-88235 Level 3 Est. Patient 10:48:17 MULTIMEDIA AUTHOR Matthew Rangel MD [facility] CPT-94745 Level 4 Est. Patient 17:15:07 MULTIMEDIA AUTHOR Piotr Daley [facility] CPT-27598 Level 3 Est. Patient 12:46:13 MULTIMEDIA AUTHOR Piotr Daley [facility] CPT-81238 Level 3 Est. Patient 15:14:31 MULTIMEDIA AUTHOR Piotr Daley [facility] CPT-92848 Level 3 Est. Patient 09:20:13 MULTIMEDIA AUTHOR Piotr Daley [facility] CPT-78467 Level 3 Est. Patient 09:49:40 CDT Piotr Wilson [facility] CPT-85765 Level 3 Est. Patient 16:28:11 CDT Piotr Daley [facility] CPT-34257 Level 3 Est. Patient 12:41:58 MULTIMEDIA AUTHOR Piotr Daley [facility] CPT-58279 Level 3 Est. Patient 09:21:24 CDT Piotr Daley [facility] CPT-44078 Level 3 Est. Patient 09:21:11 CDT Piotr Daley [facility] CPT-43263 Level 3 Est. Patient 11:16:29 MULTIMEDIA AUTHOR Piotr Daley [facility] CPT-95162 Level 3 Est. Patient 18:40:19 MULTIMEDIA AUTHOR Piotr Daley [facility] CPT-41776 Level 3 Est. Patient 19:30:50 CDT Piotr Daley [facility] CPT-72289 Level 3 Est. Patient 22:06:44 CDT Katrina Rinaldi MD [facility] CPT-05252 Level 3 Est. Patient 14:20:00 CDT Piotr Katie Daley [facility] CPT-92537 Level 3 Est. Patient 14:15:22 MULTIMEDIA AUTHOR Piotr Daley [facility] CPT-15672 Level 3 Est. Patient 20:19:57 MULTIMEDIA AUTHOR Piotr Daley [facility] CPT-09724 Level 3 Est. Patient 16:44:32 CDT Piotr Katie Edi [facility] CPT-79538 Level 3 Est. Patient 08:48:46 MULTIMEDIA AUTHOR Piotr Katie Edi [facility] CPT-84291 Level 3 Est. Patient 21:01:21 CDT Piotr Daley [facility] Procedures Code Procedure Name Date Entry Date Standard Description CPT-08375 Sacroiliac jt < 3V - XRAY USE ONLY 16:45:19 MULTIMEDIA AUTHOR 05/09 CPT-20576 LS spine comp w obliques - XRAY USE ONLY 14:52:26 MULTIMEDIA AUTHOR CPT-51875 Chest, 2 views 12:55:58 MULTIMEDIA AUTHOR CPT-G0439 Subsequent Annual Wellness Exam 10:34:52 MULTIMEDIA AUTHOR CPT-41475 BMP - LAB USE ONLY 17:19:11 MULTIMEDIA AUTHOR CPT-31657 PT/INR - LAB USE ONLY 17:19:10 MULTIMEDIA AUTHOR CPT-80595 Venipuncture Draw Fee 17:19:10 MULTIMEDIA AUTHOR CPT-43109 PT/INR - LAB USE ONLY 08:12:25 MULTIMEDIA AUTHOR CPT-16757 Venipuncture Draw Fee 08:12:24 MULTIMEDIA AUTHOR CPT-74789 Venipuncture Draw Fee 11:31:07 MULTIMEDIA AUTHOR CPT-74472 TPSA - LAB USE ONLY 11:31:07 MULTIMEDIA AUTHOR CPT-22509 PT/INR - LAB USE ONLY 11:31:07 MULTIMEDIA AUTHOR CPT-G0439 Subsequent Annual Wellness Exam 09:59:29 MULTIMEDIA AUTHOR CPT-31611 Creatinine - LAB USE ONLY 14:37:55 MULTIMEDIA AUTHOR CPT-00214 PT/INR - LAB USE ONLY 14:37:55 MULTIMEDIA AUTHOR CPT-17754 Venipuncture Draw Fee 14:37:55 MULTIMEDIA AUTHOR CPT-38536 LS spine comp w obliques - XRAY USE ONLY 12:59:25 MULTIMEDIA AUTHOR CPT-89322 PT/INR - LAB USE ONLY 13:49:20 CDT CPT-00828 Venipuncture Draw Fee 13:49:19 CDT CPT-48964 PT/INR - LAB USE ONLY 15:48:49 CDT CPT-92415 Venipuncture Draw Fee 15:48:49 CDT CPT-30701 Venipuncture Draw Fee 11:31:59 CDT CPT-70005 PT/INR - LAB USE ONLY 11:31:59 CDT CPT-06484 Venipuncture Draw Fee 13:29:15 CDT CPT-85093 Thoracolumbar AP/Lat 15:19:19 MULTIMEDIA AUTHOR CPT-G0438 Initial Annual Wellness Exam 12:18:54 MULTIMEDIA AUTHOR CPT-04374 Knee 3V 09:57:38 CDT CPT-OV Office Visit 15:45:01 MULTIMEDIA AUTHOR CPT-65189 Abd compl w upright 17:10:25 CDT
--- OUTSIDE RECORDS SUMMARY | 2018-07-18 09:11 | XMS REPORT | Clinical Summary ---
Author Author Admin, [employer] Organization [employer] Address Unknown Phone Unavailable Allergies, Adverse Reactions, [...] neoplasm of prostate V10.46 Active Alina Meyers PUBLIC WORKS MANAGER Personal history of malignant neoplasm of prostate Coronary artery disease 414.00 Active Alina Meyers APRN Coronary atherosclerosis of unspecified type of vessel, [place] or graft Back pain, thoracic region, left 724.1 Inactive Piotr Katie Edi DO Pain in thoracic spine Thoracic back pain 724.5 Resolved Piotr Katie Edi DO Backache, unspecified Back pain lumbar 724.2 Resolved Piotr Katie Edi DO Lumbago Peripheral neuropathy, lower extremity, left 356.9 Active 02/19 Piotr W Edi DO Unspecified hereditary and idiopathic peripheral neuropathy Insect bite 919.4 Resolved Piort W Edi DO Insect bite, nonvenomous, of [...] Leg pain, right ICD-729.5 Inactive Sirisha Chen PEDAL ASSEMBLER Right leg pain ICD-729.5 Inactive Sirisha Chen PEDAL ASSEMBLER Bronchitis-Acute ICD-466.0 Inactive Sirisha Chen PEDAL ASSEMBLER Knee pain, left ICD-719.46 Inactive Sirisha Chen PEDAL ASSEMBLER Actinic keratoses ICD-702.0 Inactive Sirisha Chen PEDAL ASSEMBLER Back pain, thoracic region, left ICD-724.1 Inactive Piotr Daley DO Thoracic back pain ICD-724.5 Inactive Sirisha Chen PEDAL ASSEMBLER Back pain lumbar ICD-724.2 Inactive Sirisha Chen PEDAL ASSEMBLER Insect bite ICD-919.4 Inactive Sirisha Chen PEDAL ASSEMBLER Pruritus ICD-698.9 Inactive Sirisha Chen PEDAL ASSEMBLER 04/09 Bronchitis-Acute ICD-466.0 Inactive Sirisha Chne PEDAL ASSEMBLER Dyspnea ICD-786.09 Inactive Sirisha Chen PEDAL ASSEMBLER 05/09 Medication List Medication Instructions Start Date Stop Date Generic Name ND Status Provider Patient Instruction NYSTATIN 084528 UNIT/GM EXTERNAL CREAM Apply to rash 2-3 times a day and may repeat as needed NYSTATIN 01968061196 Active Sirisha Chen PEDAL ASSEMBLER Active TRIAMCINOLONE ACETONIDE 0.1 % EXTERNAL CREAM apply bid sparingly to rash 2017 TRIAMCINOLONE ACETONIDE 71331996700 Active Sirisha Chen PEDAL ASSEMBLER Active WARFARIN SODIUM 4 MG ORAL TABLET 1 tablet by mouth daily WARFARIN SODIUM 30281296795 Active Sirisha Chen PEDAL ASSEMBLER Active MELOXICAM 15 MG ORAL TABLET 1 po q day for pain with food MELOXICAM 53200775011 Active Piotr Daley DO Active PREDNISONE 10 MG ORAL TABLET 1 tablet by mouth daily PREDNISONE 76169428239 No Longer Active Emelyn Norris Active TESSALON PERLES 100 MG ORAL CAPSULE 1-2 tablet by mouth 3 times daily 04/16 BENZONATATE 98173045375 No Longer Active Emelyn Norris Active PREDNISONE 20 MG ORAL TABLET two tabs by mouth today, then one tab by mouth days two and three PREDNISONE 98273925307 No Longer Active Piotr Daley DO Active CYCLOBENZAPRINE HCL 10 MG ORAL TABLET 1 tablet by mouth three times daily as needed for muscle spasm/pain CYCLOBENZAPRINE HCL 02355302484 Active Sirisha Chen LPN Active ZITHROMAX 250 MG ORAL TABLET Take two (2 ) tablets day one, then one (1) tablet a day for four (4) more days AZITHROMYCIN 41243629435 No Longer Active Piotr Daley DO Active PROAIR HFA 108 (90 BASE) MCG/ACT INHALATION AEROSOL SOLUTION 1-2 puffs four times a day as needed ALBUTEROL SULFATE 77030323078 No Longer Active Emelyn Norris Active DOXYCYCLINE HYCLATE 100 MG ORAL CAPSULE 1 cap by mouth BID x10 days DOXYCYCLINE HYCLATE 29380949245 No Longer Active Nella Harris APRN Active PREDNISONE 20 MG ORAL TABLET 2 tabs daily for 3 days, 1 tab daily for 3 days, 1/2 tab daily for 2 days PREDNISONE 92219369212 No Longer Active Matthew Rangel MD Active TRAMADOL HCL 50 MG ORAL TABLET 1 po tid with ES Tylenol TRAMADOL HCL 46720524577 No Longer Active Matthew Rangel MD Active GABAPENTIN 300 MG ORAL CAPSULE 1 po q hs for nerve pain GABAPENTIN 17519446192 No Longer Active Matthew Rangel MD Active PREDNISONE 20 MG ORAL TABLET 2 tablets today, then 1 tablet days 2 through 4 PREDNISONE 54073716488 No Longer Active Piotr Daley DO Active AZITHROMYCIN 250 MG ORAL TABLET 2 po qd x 1 day, then 1 po qd x 4 days 07/12 AZITHROMYCIN 37126452118 No Longer Active Piotr Daley DO Active IBUPROFEN 800 MG ORAL TABLET 1 tab every 8 hours as needed 07/12 IBUPROFEN 53473794534 No Longer Active Piotr Daley DO Active LOMOTIL 2.5-0.025 MG ORAL TABLET 1 to 2 four times a day as needed for diarrhea DIPHENOXYLATE-ATROPINE 11325213406 No Longer Active Piotr Daley DO Active WARFARIN SODIUM 4 MG ORAL TABLET 1 tab every evening WARFARIN SODIUM 31836748428 No Longer Active Piotr Daley DO Active PREDNISONE 20 MG ORAL TABLET 1 tablet twice daily for 2 days, then 1 tablet once daily for 2 days PREDNISONE 29366172691 No Longer Active Piotr Daley DO Active PROMETHAZINE HCL 25 MG ORAL TABLET 1 four times a day as needed for nausea/ vomiting PROMETHAZINE HCL 94610102537 No Longer Active Piotr Daley DO Active TUSSIONEX PENNKINETIC ER 10-8 MG/5ML ORAL SUSPENSION EXTENDED RELEASE 5ml po q12hr PRN Cough HYDROCOD POLST-CHLORPHEN POLST 06519365641 No Longer Active Piotr Daley DO Active AZITHROMYCIN 250 MG ORAL TABLET 2 po qd x 1 day, then 1 po qd x 4 days 10/13 AZITHROMYCIN 99737363895 No Longer Active Piotr Daley DO Active AZITHROMYCIN 250 MG ORAL TABLET 2 po qd x 1 day, then 1 po qd x 4 days 05/07 AZITHROMYCIN 85705632139 No Longer Active Piotr Daley DO Active LISINOPRIL-HYDROCHLOROTHIAZIDE 10-12.5 MG ORAL TABLET 1 tab by mouth daily LISINOPRIL-HYDROCHLOROTHIAZIDE 29779523959 Active Pitor Daley DO Active LISINOPRIL 10 MG ORAL TABLET 1/2-1 tab po every other day LISINOPRIL 93012273640 No Longer Active Piotr Daley DO Active VENTOLIN HFA 108 (90 Base) MCG/ACT INHALATION AEROSOL SOLUTION 2 puffs four times a day PRN cough ALBUTEROL SULFATE 68805224486 No Longer Active Piotr Daley DO Active NYSTATIN-TRIAMCINOLONE 087361-8.1 UNIT/GM-% EXTERNAL CREAM Apply to area BID NYSTATIN-TRIAMCINOLONE 43028541125 No Longer Active Alena Chavira PEDAL ASSEMBLER Active PHISOHEX 3 % LIQD Use Directed HEXACHLOROPHENE 21308399865 No Longer Active Sandra [place] Active AZITHROMYCIN 250 MG ORAL TABLET 2 po qd x 1 day, then 1 po qd x 4 days 10/21 AZITHROMYCIN 96558895664 No Longer Active Katrina Rinaldi MD PhD Active AZITHROMYCIN 250 MG ORAL TABLET 2 po qd x 1 day, then 1 po qd x 4 days 10/16 AZITHROMYCIN 56951484964 No Longer Active Piotr Daley DO Active AZITHROMYCIN 500 MG INTRAVENOUS SOLUTION RECONSTITUTED 1 po q day AZITHROMYCIN 37964276399 No Longer Active Piotr Daley DO Active NYSTATIN-TRIAMCINOLONE 001623-6.1 UNIT/GM-% EXTERNAL CREAM apply bid NYSTATIN-TRIAMCINOLONE 46352851531 No Longer Active Piotr Daley DO Active IBUPROFEN 800 MG ORAL TABLET 1 po q 8 hours prn pain sparinly IBUPROFEN 65399576869 No Longer Active Piotr Daley DO Active VITAMIN D3 5000 UNIT ORAL CAPSULE 1 po daily CHOLECALCIFEROL 23509076433 Active Piotr Daley DO Active DOXYCYCLINE HYCLATE 100 MG ORAL CAPSULE 1 cap by mouth BID x10 days DOXYCYCLINE HYCLATE 100 MG ORAL CAPSULE 5248682 DOXYCYCLINE HYCLATE Inactive IBUPROFEN 800 MG ORAL TABLET 1 po q 8 hours prn pain sparinly IBUPROFEN 800 MG ORAL TABLET 977720 IBUPROFEN Inactive IBUPROFEN 800 MG ORAL TABLET 1 tab every 8 hours as needed 07/12 IBUPROFEN 800 MG ORAL TABLET 920776 IBUPROFEN Inactive LOMOTIL 2.5-0.025 MG ORAL TABLET 1 to 2 four times a day as needed for diarrhea LOMOTIL 2.5-0.025 MG ORAL TABLET 0511695 DIPHENOXYLATE-ATROPINE Inactive NYSTATIN-TRIAMCINOLONE 053274-1.1 UNIT/GM-% EXTERNAL CREAM apply bid NYSTATIN-TRIAMCINOLONE 745839-7.1 UNIT/GM-% EXTERNAL CREAM 4435967 NYSTATIN-TRIAMCINOLONE Inactive NYSTATIN-TRIAMCINOLONE 916999-6.1 UNIT/GM-% EXTERNAL CREAM Apply to area BID NYSTATIN-TRIAMCINOLONE 355308-7.1 UNIT/GM-% EXTERNAL CREAM 2659339 NYSTATIN-TRIAMCINOLONE Inactive PREDNISONE 10 MG ORAL TABLET 1 tablet by mouth daily PREDNISONE 10 MG ORAL TABLET 325358 PREDNISONE Inactive PREDNISONE 20 MG ORAL TABLET two tabs by mouth today, then one tab by mouth days two and three PREDNISONE 20 MG ORAL TABLET 858909 PREDNISONE Inactive PREDNISONE 20 MG ORAL TABLET 2 tabs daily for 3 days, 1 tab daily for 3 days, 1/2 tab daily for 2 days PREDNISONE 20 MG ORAL TABLET 306903 PREDNISONE Inactive PREDNISONE 20 MG ORAL TABLET 1 tablet twice daily for 2 days, then 1 tablet once daily for 2 days PREDNISONE 20 MG ORAL TABLET 008629 PREDNISONE Inactive PREDNISONE 20 MG ORAL TABLET 2 tablets today, then 1 tablet days 2 through 4 PREDNISONE 20 MG ORAL TABLET 077027 PREDNISONE Inactive PROMETHAZINE HCL 25 MG ORAL TABLET 1 four times a day as needed for nausea/ vomiting PROMETHAZINE HCL 25 MG ORAL TABLET 537592 PROMETHAZINE HCL Inactive LISINOPRIL 10 MG ORAL TABLET 1/2-1 tab po every other day LISINOPRIL 10 MG ORAL TABLET 404098 LISINOPRIL Inactive TESSALON PERLES 100 MG ORAL CAPSULE 1-2 tablet by mouth 3 times daily 04/16 LEE PERLES 100 MG ORAL CAPSULE 659377 BENZONATATE Inactive TRAMADOL HCL 50 MG ORAL TABLET 1 po tid with ES Tylenol TRAMADOL HCL 50 MG ORAL TABLET 552909 TRAMADOL HCL Inactive GABAPENTIN 300 MG ORAL CAPSULE 1 po q hs for nerve pain GABAPENTIN 300 MG ORAL CAPSULE 449692 GABAPENTIN Inactive ZITHROMAX 250 MG ORAL TABLET Take two (2 ) tablets day one, then one (1) tablet a day for four (4) more days ZITHROMAX 250 MG ORAL TABLET 951711 AZITHROMYCIN Inactive AZITHROMYCIN 250 MG ORAL TABLET 2 po qd x 1 day, then 1 po qd x 4 days 10/16 AZITHROMYCIN 250 MG ORAL TABLET 674879 AZITHROMYCIN Inactive AZITHROMYCIN 250 MG ORAL TABLET 2 po qd x 1 day, then 1 po qd x 4 days 10/21 AZITHROMYCIN 250 MG ORAL TABLET 273725 AZITHROMYCIN Inactive AZITHROMYCIN 250 MG ORAL TABLET 2 po qd x 1 day, then 1 po qd x 4 days 05/07 AZITHROMYCIN 250 MG ORAL TABLET 751349 AZITHROMYCIN Inactive AZITHROMYCIN 250 MG ORAL TABLET 2 po qd x 1 day, then 1 po qd x 4 days 10/13 AZITHROMYCIN 250 MG ORAL TABLET 406545 AZITHROMYCIN Inactive AZITHROMYCIN 250 MG ORAL TABLET 2 po qd x 1 day, then 1 po qd x 4 days 07/12 AZITHROMYCIN 250 MG ORAL TABLET 319212 AZITHROMYCIN Inactive AZITHROMYCIN 500 MG INTRAVENOUS SOLUTION RECONSTITUTED 1 po q day AZITHROMYCIN 500 MG INTRAVENOUS SOLUTION RECONSTITUTED 56763264891 AZITHROMYCIN Inactive WARFARIN SODIUM 4 MG ORAL TABLET 1 tab every evening WARFARIN SODIUM 4 MG ORAL TABLET 239882 WARFARIN SODIUM Inactive VENTOLIN HFA 108 (90 [...] Measured Encounters Code Encounter Date Provider Facility CPT-67776 [id number] Vst-Est Level III 14:29:05 CDT Piotr Wilson [facility] CPT-06629 Level 3 Est. Patient 15:59:25 LEASE BROKER Piotr Daley [facility] CPT-61902 Level 3 Est. Patient 12:33:59 LEASE BROKER Piotr Wilson [facility] CPT-92005 Level 3 Est. Patient 15:56:17 LEASE BROKER Piotr Daley [facility] CPT-23491 Level 3 Est. Patient 10:34:54 LEASE BROKER Piotr Wlison [facility] CPT-97082 Level 3 Est. Patient 17:10:19 CDT Nella Harris APRN [facility] CPT-68046 Level 3 Est. Patient 10:48:17 LEASE BROKER Matthew Rangel MD [facility] CPT-02500 Level 4 Est. Patient 17:15:07 LEASE BROKER Piotr Daley [facility] CPT-82229 Level 3 Est. Patient 12:46:13 LEASE BROKER Piotr Daley [facility] CPT-97869 Level 3 Est. Patient 15:14:31 LEASE BROKER Piotr Daley [facility] CPT-66053 Level 3 Est. Patient 09:20:13 LEASE BROKER Piotr Daley [facility] CPT-64088 Level 3 Est. Patient 09:49:40 CDT Piotr Wilson [facility] CPT-54884 Level 3 Est. Patient 16:28:11 CDT Piotr Daley [facility] CPT-43777 Level 3 Est. Patient 12:41:58 LEASE BROKER Piotr Daley [facility] CPT-40672 Level 3 Est. Patient 09:21:24 CDT Piotr Daley [facility] CPT-26538 Level 3 Est. Patient 09:21:11 CDT Piotr Daley [facility] CPT-19229 Level 3 Est. Patient 11:16:29 LEASE BROKER Piotr Daley [facility] CPT-75894 Level 3 Est. Patient 18:40:19 LEASE BROKER Piotr Daley [facility] CPT-35352 Level 3 Est. Patient 19:30:50 CDT Piotr Daley [facility] CPT-85290 Level 3 Est. Patient 22:06:44 CDT Katrina Rinaldi MD [facility] CPT-07161 Level 3 Est. Patient 14:20:00 CDT Piotr Katie Daley [facility] CPT-94949 Level 3 Est. Patient 14:15:22 LEASE BROKER Piotr Katie Daley [facility] CPT-78141 Level 3 Est. Patient 20:19:57 LEASE BROKER Piotr Katie Daley [facility] CPT-04400 Level 3 Est. Patient 16:44:32 CDT Piotr Katie Edi [facility] CPT-30358 Level 3 Est. Patient 08:48:46 LEASE BROKER Piotr Wilson Edi [facility] CPT-69195 Level 3 Est. Patient 21:01:21 CDT Piotr Daley [facility] Procedures Code Procedure Name Date Entry Date Standard Description CPT-81475 Sacroiliac jt < 3V - XRAY USE ONLY 16:45:19 LEASE BROKER 05/09 CPT-82384 LS spine comp w obliques - XRAY USE ONLY 14:52:26 LEASE BROKER CPT-99864 Chest, 2 views 12:55:58 LEASE BROKER CPT-G0439 Subsequent Annual Wellness Exam 10:34:52 LEASE BROKER CPT-13049 BMP - LAB USE ONLY 17:19:11 LEASE BROKER CPT-66540 PT/INR - LAB USE ONLY 17:19:10 LEASE BROKER CPT-13915 Venipuncture Draw Fee 17:19:10 LEASE BROKER CPT-88944 PT/INR - LAB USE ONLY 08:12:25 LEASE BROKER CPT-69858 Venipuncture Draw Fee 08:12:24 LEASE BROKER CPT-49552 Venipuncture Draw Fee 11:31:07 LEASE BROKER CPT-71388 TPSA - LAB USE ONLY 11:31:07 LEASE BROKER CPT-38998 PT/INR - LAB USE ONLY 11:31:07 LEASE BROKER CPT-G0439 Subsequent Annual Wellness Exam 09:59:29 LEASE BROKER CPT-02595 Creatinine - LAB USE ONLY 14:37:55 LEASE BROKER CPT-52574 PT/INR - LAB USE ONLY 14:37:55 LEASE BROKER CPT-07740 Venipuncture Draw Fee 14:37:55 LEASE BROKER CPT-54373 LS spine comp w obliques - XRAY USE ONLY 12:59:25 LEASE BROKER CPT-79227 PT/INR - LAB USE ONLY 13:49:20 CDT CPT-99366 Venipuncture Draw Fee 13:49:19 CDT CPT-80023 PT/INR - LAB USE ONLY 15:48:49 CDT CPT-79468 Venipuncture Draw Fee 15:48:49 CDT CPT-62628 Venipuncture Draw Fee 11:31:59 CDT CPT-96115 PT/INR - LAB USE ONLY 11:31:59 CDT CPT-44669 Venipuncture Draw Fee 13:29:15 CDT CPT-19140 Thoracolumbar AP/Lat 15:19:19 LEASE BROKER CPT-G0438 Initial Annual Wellness Exam 12:18:54 LEASE BROKER CPT-47671 Knee 3V 09:57:38 CDT CPT-OV Office Visit 15:45:01 LEASE BROKER CPT-19904 Abd compl w upright 17:10:25 CDT
--- OUTSIDE RECORDS SUMMARY | 2018-07-18 09:12 | XMS REPORT | Clinical Summary ---
Author Author Admin, [facility] [employer] Address Unknown Phone Unavailable Allergies, Adverse Reactions, [...] of unspecified type of vessel, [place] or graft Back pain, thoracic region, left [...] Leg pain, right ICD-729.5 Inactive Sirisha Chen LIFT TEAM TECHNICIAN Right leg pain ICD-729.5 Inactive Sirisha Chen LIFT TEAM TECHNICIAN Bronchitis-Acute ICD-466.0 Inactive Sirisha Chen LIFT TEAM TECHNICIAN Knee pain, left ICD-719.46 Inactive Sirisha Chen LIFT TEAM TECHNICIAN Actinic keratoses ICD-702.0 Inactive Sirisha Chen LIFT TEAM TECHNICIAN Back pain, thoracic region, left ICD-724.1 Inactive Piotr Daley DO Thoracic back pain ICD-724.5 Inactive Sirisha Chen LIFT TEAM TECHNICIAN Back pain lumbar ICD-724.2 Inactive Sirisha Chen LIFT TEAM TECHNICIAN Insect bite ICD-919.4 Inactive Sirisha Chen LIFT TEAM TECHNICIAN Pruritus ICD-698.9 Inactive Sirisha Chen LIFT TEAM TECHNICIAN 04/09 Bronchitis-Acute ICD-466.0 Inactive Sirisha Chen LIFT TEAM TECHNICIAN Dyspnea ICD-786.09 Inactive Sirisha Chen LIFT TEAM TECHNICIAN 05/09 Medication List Medication Instructions Start Date Stop Date Generic Name NDC Status Provider Patient Instruction NYSTATIN 447292 UNIT/GM EXTERNAL CREAM Apply to rash 2-3 times a day and may repeat as needed NYSTATIN 95362864331 Active Sirisha Chen LIFT TEAM TECHNICIAN Active TRIAMCINOLONE ACETONIDE 0.1 % EXTERNAL CREAM apply bid sparingly to rash 2017 TRIAMCINOLONE ACETONIDE 60757031297 Active Sirisha Chen LIFT TEAM TECHNICIAN Active WARFARIN SODIUM 4 MG ORAL TABLET 1 tablet by mouth daily WARFARIN SODIUM 64437848782 Active Sirisha Chen LIFT TEAM TECHNICIAN Active MELOXICAM 15 MG ORAL TABLET 1 po q day for pain with food MELOXICAM 60586914970 Active Piotr Daley DO Active PREDNISONE 10 MG ORAL TABLET 1 tablet by mouth daily PREDNISONE 36444413805 No Longer Active Emelyn Norris Active TESSALON PERLES 100 MG ORAL CAPSULE 1-2 tablet by mouth 3 times daily 04/16 BENZONATATE 32402558902 No Longer Active Emelyn Norris Active PREDNISONE 20 MG ORAL TABLET two tabs by mouth today, then one tab by mouth days two and three PREDNISONE 27911415566 No Longer Active Piotr Daley DO Active CYCLOBENZAPRINE HCL 10 MG ORAL TABLET 1 tablet by mouth three times daily as needed for muscle spasm/pain CYCLOBENZAPRINE HCL 83370296445 Active Sirisha Chen LPN Active ZITHROMAX 250 MG ORAL TABLET Take two (2 ) tablets day one, then one (1) tablet a day for four (4) more days AZITHROMYCIN 26503527265 No Longer Active Piotr Daley DO Active PROAIR HFA 108 (90 BASE) MCG/ACT INHALATION AEROSOL SOLUTION 1-2 puffs four times a day as needed ALBUTEROL SULFATE 83272329890 No Longer Active Emelyn Norris Active DOXYCYCLINE HYCLATE 100 MG ORAL CAPSULE 1 cap by mouth BID x10 days DOXYCYCLINE HYCLATE 44576645411 No Longer Active Nella Harris APRN Active PREDNISONE 20 MG ORAL TABLET 2 tabs daily for 3 days, 1 tab daily for 3 days, 1/2 tab daily for 2 days PREDNISONE 92843334719 No Longer Active Matthew Rangel MD Active TRAMADOL HCL 50 MG ORAL TABLET 1 po tid with ES Tylenol TRAMADOL HCL 81127435987 No Longer Active Matthew Rangel MD Active GABAPENTIN 300 MG ORAL CAPSULE 1 po q hs for nerve pain GABAPENTIN 71179799633 No Longer Active Matthew Rangel MD Active PREDNISONE 20 MG ORAL TABLET 2 tablets today, then 1 tablet days 2 through 4 PREDNISONE 68336304795 No Longer Active Piotr Daley DO Active AZITHROMYCIN 250 MG ORAL TABLET 2 po qd x 1 day, then 1 po qd x 4 days 07/12 AZITHROMYCIN 79748111284 No Longer Active Piotr Daley DO Active IBUPROFEN 800 MG ORAL TABLET 1 tab every 8 hours as needed 07/12 IBUPROFEN 99164041055 No Longer Active Piotr Daley DO Active LOMOTIL 2.5-0.025 MG ORAL TABLET 1 to 2 four times a day as needed for diarrhea DIPHENOXYLATE-ATROPINE 61990553090 No Longer Active Piotr Daley DO Active WARFARIN SODIUM 4 MG ORAL TABLET 1 tab every evening WARFARIN SODIUM 56803964998 No Longer Active Piotr Daley DO Active PREDNISONE 20 MG ORAL TABLET 1 tablet twice daily for 2 days, then 1 tablet once daily for 2 days PREDNISONE 42316318928 No Longer Active Piotr Daley DO Active PROMETHAZINE HCL 25 MG ORAL TABLET 1 four times a day as needed for nausea/ vomiting PROMETHAZINE HCL 23080609024 No Longer Active Piotr Daley DO Active TUSSIONEX PENNKINETIC ER 10-8 MG/5ML ORAL SUSPENSION EXTENDED RELEASE 5ml po q12hr PRN Cough HYDROCOD POLST-CHLORPHEN POLST 96672408871 No Longer Active Piotr Daley DO Active AZITHROMYCIN 250 MG ORAL TABLET 2 po qd x 1 day, then 1 po qd x 4 days 10/13 AZITHROMYCIN 65481682957 No Longer Active Piotr Daley DO Active AZITHROMYCIN 250 MG ORAL TABLET 2 po qd x 1 day, then 1 po qd x 4 days 05/07 AZITHROMYCIN 78192328124 No Longer Active Piotr Daley DO Active LISINOPRIL-HYDROCHLOROTHIAZIDE 10-12.5 MG ORAL TABLET 1 tab by mouth daily LISINOPRIL-HYDROCHLOROTHIAZIDE 58256694617 Active Piotr Daley DO Active LISINOPRIL 10 MG ORAL TABLET 1/2-1 tab po every other day LISINOPRIL 74472163754 No Longer Active Piotr Daley DO Active VENTOLIN HFA 108 (90 Base) MCG/ACT INHALATION AEROSOL SOLUTION 2 puffs four times a day PRN cough ALBUTEROL SULFATE 49100135616 No Longer Active Piotr Daley DO Active NYSTATIN-TRIAMCINOLONE 432625-2.1 UNIT/GM-% EXTERNAL CREAM Apply to area BID NYSTATIN-TRIAMCINOLONE 17191575200 No Longer Active Alena Chavira LIFT TEAM TECHNICIAN Active PHISOHEX 3 % LIQD Use Directed HEXACHLOROPHENE 19667884187 No Longer Active Sandra Wausa Active AZITHROMYCIN 250 MG ORAL TABLET 2 po qd x 1 day, then 1 po qd x 4 days 10/21 AZITHROMYCIN 70965208135 No Longer Active Katrina Rinaldi MD PhD Active AZITHROMYCIN 250 MG ORAL TABLET 2 po qd x 1 day, then 1 po qd x 4 days 10/16 AZITHROMYCIN 69086769539 No Longer Active Piotr Daley DO Active AZITHROMYCIN 500 MG INTRAVENOUS SOLUTION RECONSTITUTED 1 po q day AZITHROMYCIN 30698572018 No Longer Active Piotr Daley DO Active NYSTATIN-TRIAMCINOLONE 969035-2.1 UNIT/GM-% EXTERNAL CREAM apply bid NYSTATIN-TRIAMCINOLONE 85708405057 No Longer Active Piotr Daley DO Active IBUPROFEN 800 MG ORAL TABLET 1 po q 8 hours prn pain sparinly IBUPROFEN 59735061685 No Longer Active Piotr Daley DO Active VITAMIN D3 5000 UNIT ORAL CAPSULE 1 po daily CHOLECALCIFEROL 90350601762 Active Piotr Daley DO Active DOXYCYCLINE HYCLATE 100 MG ORAL CAPSULE 1 cap by mouth BID x10 days DOXYCYCLINE HYCLATE 100 MG ORAL CAPSULE 6708337 DOXYCYCLINE HYCLATE Inactive IBUPROFEN 800 MG ORAL TABLET 1 po q 8 hours prn pain sparinly IBUPROFEN 800 MG ORAL TABLET 243818 IBUPROFEN Inactive IBUPROFEN 800 MG ORAL TABLET 1 tab every 8 hours as needed 07/12 IBUPROFEN 800 MG ORAL TABLET 809341 IBUPROFEN Inactive LOMOTIL 2.5-0.025 MG ORAL TABLET 1 to 2 four times a day as needed for diarrhea LOMOTIL 2.5-0.025 MG ORAL TABLET 7307284 DIPHENOXYLATE-ATROPINE Inactive NYSTATIN-TRIAMCINOLONE 495406-3.1 UNIT/GM-% EXTERNAL CREAM apply bid NYSTATIN-TRIAMCINOLONE 622957-5.1 UNIT/GM-% EXTERNAL CREAM 5971033 NYSTATIN-TRIAMCINOLONE Inactive NYSTATIN-TRIAMCINOLONE 090867-1.1 UNIT/GM-% EXTERNAL CREAM Apply to area BID NYSTATIN-TRIAMCINOLONE 314097-3.1 UNIT/GM-% EXTERNAL CREAM 0433671 NYSTATIN-TRIAMCINOLONE Inactive PREDNISONE 10 MG ORAL TABLET 1 tablet by mouth daily PREDNISONE 10 MG ORAL TABLET 469665 PREDNISONE Inactive PREDNISONE 20 MG ORAL TABLET two tabs by mouth today, then one tab by mouth days two and three PREDNISONE 20 MG ORAL TABLET 958583 PREDNISONE Inactive PREDNISONE 20 MG ORAL TABLET 2 tabs daily for 3 days, 1 tab daily for 3 days, 1/2 tab daily for 2 days PREDNISONE 20 MG ORAL TABLET 026740 PREDNISONE Inactive PREDNISONE 20 MG ORAL TABLET 1 tablet twice daily for 2 days, then 1 tablet once daily for 2 days PREDNISONE 20 MG ORAL TABLET 573256 PREDNISONE Inactive PREDNISONE 20 MG ORAL TABLET 2 tablets today, then 1 tablet days 2 through 4 PREDNISONE 20 MG ORAL TABLET 848422 PREDNISONE Inactive PROMETHAZINE HCL 25 MG ORAL TABLET 1 four times a day as needed for nausea/ vomiting PROMETHAZINE HCL 25 MG ORAL TABLET 650501 PROMETHAZINE HCL Inactive LISINOPRIL 10 MG ORAL TABLET 1/2-1 tab po every other day LISINOPRIL 10 MG ORAL TABLET 845427 LISINOPRIL Inactive TESSALON PERLES 100 MG ORAL CAPSULE 1-2 tablet by mouth 3 times daily 04/16 LEE PERLES 100 MG ORAL CAPSULE 882224 BENZONATATE Inactive TRAMADOL HCL 50 MG ORAL TABLET 1 po tid with ES Tylenol TRAMADOL HCL 50 MG ORAL TABLET 383851 TRAMADOL HCL Inactive GABAPENTIN 300 MG ORAL CAPSULE 1 po q hs for nerve pain GABAPENTIN 300 MG ORAL CAPSULE 334345 GABAPENTIN Inactive ZITHROMAX 250 MG ORAL TABLET Take two (2 ) tablets day one, then one (1) tablet a day for four (4) more days ZITHROMAX 250 MG ORAL TABLET 461305 AZITHROMYCIN Inactive AZITHROMYCIN 250 MG ORAL TABLET 2 po qd x 1 day, then 1 po qd x 4 days 10/16 AZITHROMYCIN 250 MG ORAL TABLET 707116 AZITHROMYCIN Inactive AZITHROMYCIN 250 MG ORAL TABLET 2 po qd x 1 day, then 1 po qd x 4 days 10/21 AZITHROMYCIN 250 MG ORAL TABLET 231398 AZITHROMYCIN Inactive AZITHROMYCIN 250 MG ORAL TABLET 2 po qd x 1 day, then 1 po qd x 4 days 05/07 AZITHROMYCIN 250 MG ORAL TABLET 381815 AZITHROMYCIN Inactive AZITHROMYCIN 250 MG ORAL TABLET 2 po qd x 1 day, then 1 po qd x 4 days 10/13 AZITHROMYCIN 250 MG ORAL TABLET 806837 AZITHROMYCIN Inactive AZITHROMYCIN 250 MG ORAL TABLET 2 po qd x 1 day, then 1 po qd x 4 days 07/12 AZITHROMYCIN 250 MG ORAL TABLET 443714 AZITHROMYCIN Inactive AZITHROMYCIN 500 MG INTRAVENOUS SOLUTION RECONSTITUTED 1 po q day AZITHROMYCIN 500 MG INTRAVENOUS SOLUTION RECONSTITUTED 95277649493 AZITHROMYCIN Inactive WARFARIN SODIUM 4 MG ORAL TABLET 1 tab every evening WARFARIN SODIUM 4 MG ORAL TABLET 153413 WARFARIN SODIUM Inactive VENTOLIN HFA 108 (90 [...] Measured Encounters Code Encounter Date Provider Facility CPT-40948 [id number] Vst-Est Level III 14:29:05 CDT Piotr Wilson [facility] CPT-78205 Level 3 Est. Patient 15:59:25 ORACLE HRMS DEVELOPER Piotr Daley [facility] CPT-62225 Level 3 Est. Patient 12:33:59 ORACLE HRMS DEVELOPER Piotr Daley [facility] CPT-88321 Level 3 Est. Patient 15:56:17 ORACLE HRMS DEVELOPER Piotr Daley [facility] CPT-45336 Level 3 Est. Patient 10:34:54 ORACLE HRMS DEVELOPER Piotr Wilson [facility] CPT-36876 Level 3 Est. Patient 17:10:19 CDT Nella Harris APRN [facility] CPT-40081 Level 3 Est. Patient 10:48:17 ORACLE HRMS DEVELOPER Matthew Rangel MD [facility] CPT-03887 Level 4 Est. Patient 17:15:07 ORACLE HRMS DEVELOPER Piotr Daley [facility] CPT-53861 Level 3 Est. Patient 12:46:13 ORACLE HRMS DEVELOPER Piotr Daley [facility] CPT-33715 Level 3 Est. Patient 15:14:31 ORACLE HRMS DEVELOPER Piotr Daley [facility] CPT-30562 Level 3 Est. Patient 09:20:13 ORACLE HRMS DEVELOPER Piotr Daley [facility] CPT-62936 Level 3 Est. Patient 09:49:40 CDT Piotr Wilson [facility] CPT-68143 Level 3 Est. Patient 16:28:11 CDT Piotr Daley [facility] CPT-17068 Level 3 Est. Patient 12:41:58 ORACLE HRMS DEVELOPER Piotr Daley [facility] CPT-26613 Level 3 Est. Patient 09:21:24 CDT Piotr Daley [facility] CPT-02741 Level 3 Est. Patient 09:21:11 CDT Piotr Daley [facility] CPT-36067 Level 3 Est. Patient 11:16:29 ORACLE HRMS DEVELOPER Piotr Daley [facility] CPT-13597 Level 3 Est. Patient 18:40:19 ORACLE HRMS DEVELOPER Piotr Daley [facility] CPT-15354 Level 3 Est. Patient 19:30:50 CDT Piotr Daley [facility] CPT-46854 Level 3 Est. Patient 22:06:44 CDT Katrina Rinaldi MD [facility] CPT-71380 Level 3 Est. Patient 14:20:00 CDT Piotr Katie Daley [facility] CPT-27222 Level 3 Est. Patient 14:15:22 ORACLE HRMS DEVELOPER Piotr Daley [facility] CPT-10211 Level 3 Est. Patient 20:19:57 ORACLE HRMS DEVELOPER Piotr Daley [facility] CPT-19399 Level 3 Est. Patient 16:44:32 CDT Piotr Katie Edi [facility] CPT-56018 Level 3 Est. Patient 08:48:46 ORACLE HRMS DEVELOPER Piotr Katie Edi [facility] CPT-70001 Level 3 Est. Patient 21:01:21 CDT Piotr Daley [facility] Procedures Code Procedure Name Date Entry Date Standard Description CPT-75746 Sacroiliac jt < 3V - XRAY USE ONLY 16:45:19 ORACLE HRMS DEVELOPER 05/09 CPT-39926 LS spine comp w obliques - XRAY USE ONLY 14:52:26 ORACLE HRMS DEVELOPER CPT-25825 Chest, 2 views 12:55:58 ORACLE HRMS DEVELOPER CPT-G0439 Subsequent Annual Wellness Exam 10:34:52 ORACLE HRMS DEVELOPER CPT-42063 BMP - LAB USE ONLY 17:19:11 ORACLE HRMS DEVELOPER CPT-39201 PT/INR - LAB USE ONLY 17:19:10 ORACLE HRMS DEVELOPER CPT-05168 Venipuncture Draw Fee 17:19:10 ORACLE HRMS DEVELOPER CPT-02313 PT/INR - LAB USE ONLY 08:12:25 ORACLE HRMS DEVELOPER CPT-28074 Venipuncture Draw Fee 08:12:24 ORACLE HRMS DEVELOPER CPT-12853 Venipuncture Draw Fee 11:31:07 ORACLE HRMS DEVELOPER CPT-77418 TPSA - LAB USE ONLY 11:31:07 ORACLE HRMS DEVELOPER CPT-63872 PT/INR - LAB USE ONLY 11:31:07 ORACLE HRMS DEVELOPER CPT-G0439 Subsequent Annual Wellness Exam 09:59:29 ORACLE HRMS DEVELOPER CPT-37685 Creatinine - LAB USE ONLY 14:37:55 ORACLE HRMS DEVELOPER CPT-10451 PT/INR - LAB USE ONLY 14:37:55 ORACLE HRMS DEVELOPER CPT-30578 Venipuncture Draw Fee 14:37:55 ORACLE HRMS DEVELOPER CPT-95191 LS spine comp w obliques - XRAY USE ONLY 12:59:25 ORACLE HRMS DEVELOPER CPT-37634 PT/INR - LAB USE ONLY 13:49:20 CDT CPT-24319 Venipuncture Draw Fee 13:49:19 CDT CPT-24703 PT/INR - LAB USE ONLY 15:48:49 CDT CPT-23744 Venipuncture Draw Fee 15:48:49 CDT CPT-20728 Venipuncture Draw Fee 11:31:59 CDT CPT-40883 PT/INR - LAB USE ONLY 11:31:59 CDT CPT-28279 Venipuncture Draw Fee 13:29:15 CDT CPT-74518 Thoracolumbar AP/Lat 15:19:19 ORACLE HRMS DEVELOPER CPT-G0438 Initial Annual Wellness Exam 12:18:54 ORACLE HRMS DEVELOPER CPT-84077 Knee 3V 09:57:38 CDT CPT-OV Office Visit 15:45:01 ORACLE HRMS DEVELOPER CPT-95209 Abd compl w upright 17:10:25 CDT
--- OUTSIDE RECORDS SUMMARY | 2018-07-18 09:13 | XMS REPORT | Clinical Summary ---
Author Author Admin, [employer] Address Unknown Phone Unavailable Allergies, Adverse Reactions, [...] neoplasm of prostate V10.46 Active Alina Meyers COMMUNICATIONS ADMINISTRATOR Personal history of malignant neoplasm of prostate Coronary artery disease 414.00 Active Alina Meyers APRN Coronary atherosclerosis of unspecified type of vessel, cantwell or graft Back pain, thoracic region, left [...] Leg pain, right ICD-729.5 Inactive Sirisha Chen SOFTWARE APPLICATIONS DEVELOPER Right leg pain ICD-729.5 Inactive Sirisha Chen SOFTWARE APPLICATIONS DEVELOPER Bronchitis-Acute ICD-466.0 Inactive Sirisha Chen SOFTWARE APPLICATIONS DEVELOPER Knee pain, left ICD-719.46 Inactive Sirisha Chen SOFTWARE APPLICATIONS DEVELOPER Actinic keratoses ICD-702.0 Inactive Sirisha Chen SOFTWARE APPLICATIONS DEVELOPER Back pain, thoracic region, left ICD-724.1 Inactive Piotr Daley DO Thoracic back pain ICD-724.5 Inactive Sirisha Chen SOFTWARE APPLICATIONS DEVELOPER Back pain lumbar ICD-724.2 Inactive Sirisha Chen SOFTWARE APPLICATIONS DEVELOPER Insect bite ICD-919.4 Inactive Sirisha Chen SOFTWARE APPLICATIONS DEVELOPER Pruritus ICD-698.9 Inactive Sirisha Chen SOFTWARE APPLICATIONS DEVELOPER 04/09 Bronchitis-Acute ICD-466.0 Inactive Sirisha Chen SOFTWARE APPLICATIONS DEVELOPER Dyspnea ICD-786.09 Inactive Sirisha Chen SOFTWARE APPLICATIONS DEVELOPER 05/09 Medication List Medication Instructions Start Date Stop Date Generic Name ND Status Provider Patient Instruction NYSTATIN 247411 UNIT/GM EXTERNAL CREAM Apply to rash 2-3 times a day and may repeat as needed NYSTATIN 26115345410 Active Sirisha Chen SOFTWARE APPLICATIONS DEVELOPER Active TRIAMCINOLONE ACETONIDE 0.1 % EXTERNAL CREAM apply bid sparingly to rash 2017 TRIAMCINOLONE ACETONIDE 11087472985 Active Sirisha Chen SOFTWARE APPLICATIONS DEVELOPER Active WARFARIN SODIUM 4 MG ORAL TABLET 1 tablet by mouth daily WARFARIN SODIUM 49700959851 Active Sirisha Chen SOFTWARE APPLICATIONS DEVELOPER Active MELOXICAM 15 MG ORAL TABLET 1 po q day for pain with food MELOXICAM 54792216028 Active Piotr Daley DO Active PREDNISONE 10 MG ORAL TABLET 1 tablet by mouth daily PREDNISONE 01267310557 No Longer Active Emelyn Norris Active TESSALON PERLES 100 MG ORAL CAPSULE 1-2 tablet by mouth 3 times daily 04/16 BENZONATATE 29962341576 No Longer Active Emelyn Norris Active PREDNISONE 20 MG ORAL TABLET two tabs by mouth today, then one tab by mouth days two and three PREDNISONE 44568030625 No Longer Active Piotr Daley DO Active CYCLOBENZAPRINE HCL 10 MG ORAL TABLET 1 tablet by mouth three times daily as needed for muscle spasm/pain CYCLOBENZAPRINE HCL 56859464536 Active Sirisha Chen LPN Active ZITHROMAX 250 MG ORAL TABLET Take two (2 ) tablets day one, then one (1) tablet a day for four (4) more days AZITHROMYCIN 21224589528 No Longer Active Piotr Daley DO Active PROAIR HFA 108 (90 BASE) MCG/ACT INHALATION AEROSOL SOLUTION 1-2 puffs four times a day as needed ALBUTEROL SULFATE 57230537271 No Longer Active Emelyn Norris Active DOXYCYCLINE HYCLATE 100 MG ORAL CAPSULE 1 cap by mouth BID x10 days DOXYCYCLINE HYCLATE 95658004693 No Longer Active Nella Harris APRN Active PREDNISONE 20 MG ORAL TABLET 2 tabs daily for 3 days, 1 tab daily for 3 days, 1/2 tab daily for 2 days PREDNISONE 59133405873 No Longer Active Matthew Rangel MD Active TRAMADOL HCL 50 MG ORAL TABLET 1 po tid with ES Tylenol TRAMADOL HCL 79712920421 No Longer Active Matthew Rangel MD Active GABAPENTIN 300 MG ORAL CAPSULE 1 po q hs for nerve pain GABAPENTIN 55838257352 No Longer Active Matthew Rangel MD Active PREDNISONE 20 MG ORAL TABLET 2 tablets today, then 1 tablet days 2 through 4 PREDNISONE 63106798581 No Longer Active Piotr Daley DO Active AZITHROMYCIN 250 MG ORAL TABLET 2 po qd x 1 day, then 1 po qd x 4 days 07/12 AZITHROMYCIN 78349301374 No Longer Active Piotr Daley DO Active IBUPROFEN 800 MG ORAL TABLET 1 tab every 8 hours as needed 07/12 IBUPROFEN 72048492260 No Longer Active Piotr Daley DO Active LOMOTIL 2.5-0.025 MG ORAL TABLET 1 to 2 four times a day as needed for diarrhea DIPHENOXYLATE-ATROPINE 25015878702 No Longer Active Piotr Daley DO Active WARFARIN SODIUM 4 MG ORAL TABLET 1 tab every evening WARFARIN SODIUM 18761043107 No Longer Active Piotr Daley DO Active PREDNISONE 20 MG ORAL TABLET 1 tablet twice daily for 2 days, then 1 tablet once daily for 2 days PREDNISONE 15184335277 No Longer Active Piotr Daley DO Active PROMETHAZINE HCL 25 MG ORAL TABLET 1 four times a day as needed for nausea/ vomiting PROMETHAZINE HCL 72051488273 No Longer Active Piotr Daley DO Active TUSSIONEX PENNKINETIC ER 10-8 MG/5ML ORAL SUSPENSION EXTENDED RELEASE 5ml po q12hr PRN Cough HYDROCOD POLST-CHLORPHEN POLST 90954000551 No Longer Active Piotr Daley DO Active AZITHROMYCIN 250 MG ORAL TABLET 2 po qd x 1 day, then 1 po qd x 4 days 10/13 AZITHROMYCIN 09981923451 No Longer Active Piotr Daley DO Active AZITHROMYCIN 250 MG ORAL TABLET 2 po qd x 1 day, then 1 po qd x 4 days 05/07 AZITHROMYCIN 12200405047 No Longer Active Piotr Daley DO Active LISINOPRIL-HYDROCHLOROTHIAZIDE 10-12.5 MG ORAL TABLET 1 tab by mouth daily LISINOPRIL-HYDROCHLOROTHIAZIDE 74753572344 Active Piotr Daley DO Active LISINOPRIL 10 MG ORAL TABLET 1/2-1 tab po every other day LISINOPRIL 67958973500 No Longer Active Piotr Daley DO Active VENTOLIN HFA 108 (90 Base) MCG/ACT INHALATION AEROSOL SOLUTION 2 puffs four times a day PRN cough ALBUTEROL SULFATE 70539989552 No Longer Active Piotr Daley DO Active NYSTATIN-TRIAMCINOLONE 994123-8.1 UNIT/GM-% EXTERNAL CREAM Apply to area BID NYSTATIN-TRIAMCINOLONE 53792332816 No Longer Active Alena Chavira SOFTWARE APPLICATIONS DEVELOPER Active PHISOHEX 3 % LIQD Use Directed HEXACHLOROPHENE 55639916868 No Longer Active Sandra [place] Active AZITHROMYCIN 250 MG ORAL TABLET 2 po qd x 1 day, then 1 po qd x 4 days 10/21 AZITHROMYCIN 43928709130 No Longer Active Katrina Rinaldi MD PhD Active AZITHROMYCIN 250 MG ORAL TABLET 2 po qd x 1 day, then 1 po qd x 4 days 10/16 AZITHROMYCIN 97890242181 No Longer Active Piotr Daley DO Active AZITHROMYCIN 500 MG INTRAVENOUS SOLUTION RECONSTITUTED 1 po q day AZITHROMYCIN 20687237727 No Longer Active Piotr Daley DO Active NYSTATIN-TRIAMCINOLONE 990544-7.1 UNIT/GM-% EXTERNAL CREAM apply bid NYSTATIN-TRIAMCINOLONE 47234995453 No Longer Active Piotr Daley DO Active IBUPROFEN 800 MG ORAL TABLET 1 po q 8 hours prn pain sparinly IBUPROFEN 15492398883 No Longer Active Piotr Daley DO Active VITAMIN D3 5000 UNIT ORAL CAPSULE 1 po daily CHOLECALCIFEROL 77141906532 Active Piotr Daley DO Active DOXYCYCLINE HYCLATE 100 MG ORAL CAPSULE 1 cap by mouth BID x10 days DOXYCYCLINE HYCLATE 100 MG ORAL CAPSULE 1992687 DOXYCYCLINE HYCLATE Inactive IBUPROFEN 800 MG ORAL TABLET 1 po q 8 hours prn pain sparinly IBUPROFEN 800 MG ORAL TABLET 791052 IBUPROFEN Inactive IBUPROFEN 800 MG ORAL TABLET 1 tab every 8 hours as needed 07/12 IBUPROFEN 800 MG ORAL TABLET 508356 IBUPROFEN Inactive LOMOTIL 2.5-0.025 MG ORAL TABLET 1 to 2 four times a day as needed for diarrhea LOMOTIL 2.5-0.025 MG ORAL TABLET 8513730 DIPHENOXYLATE-ATROPINE Inactive NYSTATIN-TRIAMCINOLONE 412912-8.1 UNIT/GM-% EXTERNAL CREAM apply bid NYSTATIN-TRIAMCINOLONE 321739-3.1 UNIT/GM-% EXTERNAL CREAM 6985350 NYSTATIN-TRIAMCINOLONE Inactive NYSTATIN-TRIAMCINOLONE 304164-6.1 UNIT/GM-% EXTERNAL CREAM Apply to area BID NYSTATIN-TRIAMCINOLONE 457335-1.1 UNIT/GM-% EXTERNAL CREAM 6067483 NYSTATIN-TRIAMCINOLONE Inactive PREDNISONE 10 MG ORAL TABLET 1 tablet by mouth daily PREDNISONE 10 MG ORAL TABLET 187810 PREDNISONE Inactive PREDNISONE 20 MG ORAL TABLET two tabs by mouth today, then one tab by mouth days two and three PREDNISONE 20 MG ORAL TABLET 523458 PREDNISONE Inactive PREDNISONE 20 MG ORAL TABLET 2 tabs daily for 3 days, 1 tab daily for 3 days, 1/2 tab daily for 2 days PREDNISONE 20 MG ORAL TABLET 257130 PREDNISONE Inactive PREDNISONE 20 MG ORAL TABLET 1 tablet twice daily for 2 days, then 1 tablet once daily for 2 days PREDNISONE 20 MG ORAL TABLET 805316 PREDNISONE Inactive PREDNISONE 20 MG ORAL TABLET 2 tablets today, then 1 tablet days 2 through 4 PREDNISONE 20 MG ORAL TABLET 239168 PREDNISONE Inactive PROMETHAZINE HCL 25 MG ORAL TABLET 1 four times a day as needed for nausea/ vomiting PROMETHAZINE HCL 25 MG ORAL TABLET 673798 PROMETHAZINE HCL Inactive LISINOPRIL 10 MG ORAL TABLET 1/2-1 tab po every other day LISINOPRIL 10 MG ORAL TABLET 213302 LISINOPRIL Inactive TESSALON PERLES 100 MG ORAL CAPSULE 1-2 tablet by mouth 3 times daily 04/16 LEE PERLES 100 MG ORAL CAPSULE 103959 BENZONATATE Inactive TRAMADOL HCL 50 MG ORAL TABLET 1 po tid with ES Tylenol TRAMADOL HCL 50 MG ORAL TABLET 326191 TRAMADOL HCL Inactive GABAPENTIN 300 MG ORAL CAPSULE 1 po q hs for nerve pain GABAPENTIN 300 MG ORAL CAPSULE 893461 GABAPENTIN Inactive ZITHROMAX 250 MG ORAL TABLET Take two (2 ) tablets day one, then one (1) tablet a day for four (4) more days ZITHROMAX 250 MG ORAL TABLET 076678 AZITHROMYCIN Inactive AZITHROMYCIN 250 MG ORAL TABLET 2 po qd x 1 day, then 1 po qd x 4 days 10/16 AZITHROMYCIN 250 MG ORAL TABLET 826121 AZITHROMYCIN Inactive AZITHROMYCIN 250 MG ORAL TABLET 2 po qd x 1 day, then 1 po qd x 4 days 10/21 AZITHROMYCIN 250 MG ORAL TABLET 856813 AZITHROMYCIN Inactive AZITHROMYCIN 250 MG ORAL TABLET 2 po qd x 1 day, then 1 po qd x 4 days 05/07 AZITHROMYCIN 250 MG ORAL TABLET 863099 AZITHROMYCIN Inactive AZITHROMYCIN 250 MG ORAL TABLET 2 po qd x 1 day, then 1 po qd x 4 days 10/13 AZITHROMYCIN 250 MG ORAL TABLET 398421 AZITHROMYCIN Inactive AZITHROMYCIN 250 MG ORAL TABLET 2 po qd x 1 day, then 1 po qd x 4 days 07/12 AZITHROMYCIN 250 MG ORAL TABLET 630701 AZITHROMYCIN Inactive AZITHROMYCIN 500 MG INTRAVENOUS SOLUTION RECONSTITUTED 1 po q day AZITHROMYCIN 500 MG INTRAVENOUS SOLUTION RECONSTITUTED 94698090403 AZITHROMYCIN Inactive WARFARIN SODIUM 4 MG ORAL TABLET 1 tab every evening WARFARIN SODIUM 4 MG ORAL TABLET 494659 WARFARIN SODIUM Inactive VENTOLIN HFA 108 (90 [...] Measured Encounters Code Encounter Date Provider Facility CPT-85395 [id number] Vst-Est Level III 14:29:05 CDT Piotr Wilson [facility] CPT-84779 Level 3 Est. Patient 15:59:25 KEELER POLYGRAPH OPERATOR Piotr Daley [facility] CPT-20691 Level 3 Est. Patient 12:33:59 KEELER POLYGRAPH OPERATOR Piotr Wilson [facility] CPT-89778 Level 3 Est. Patient 15:56:17 KEELER POLYGRAPH OPERATOR Piotr Daley [facility] CPT-39865 Level 3 Est. Patient 10:34:54 KEELER POLYGRAPH OPERATOR Piotr Wilson [facility] CPT-42399 Level 3 Est. Patient 17:10:19 CDT Nella Harris APRN [facility] CPT-98369 Level 3 Est. Patient 10:48:17 KEELER POLYGRAPH OPERATOR Matthew Rangel MD [facility] CPT-96865 Level 4 Est. Patient 17:15:07 KEELER POLYGRAPH OPERATOR Piotr Daley [facility] CPT-90952 Level 3 Est. Patient 12:46:13 KEELER POLYGRAPH OPERATOR Piotr Daley [facility] CPT-05581 Level 3 Est. Patient 15:14:31 KEELER POLYGRAPH OPERATOR Piotr Daley [facility] CPT-20315 Level 3 Est. Patient 09:20:13 KEELER POLYGRAPH OPERATOR Piotr Daley [facility] CPT-40874 Level 3 Est. Patient 09:49:40 CDT Piotr Wilson [facility] CPT-24770 Level 3 Est. Patient 16:28:11 CDT Piotr Daley [facility] CPT-78753 Level 3 Est. Patient 12:41:58 KEELER POLYGRAPH OPERATOR Piotr Daley [facility] CPT-15484 Level 3 Est. Patient 09:21:24 CDT Piotr Daley [facility] CPT-61946 Level 3 Est. Patient 09:21:11 CDT Piotr Daley [facility] CPT-97974 Level 3 Est. Patient 11:16:29 KEELER POLYGRAPH OPERATOR Piotr Daley [facility] CPT-62906 Level 3 Est. Patient 18:40:19 KEELER POLYGRAPH OPERATOR Piotr Daley [facility] CPT-45676 Level 3 Est. Patient 19:30:50 CDT Piotr Daley [facility] CPT-69150 Level 3 Est. Patient 22:06:44 CDT Katrina Rinaldi MD [facility] CPT-85691 Level 3 Est. Patient 14:20:00 CDT Piotr Katie Daley [facility] CPT-16094 Level 3 Est. Patient 14:15:22 KEELER POLYGRAPH OPERATOR Piotr Katie Daley [facility] CPT-41108 Level 3 Est. Patient 20:19:57 KEELER POLYGRAPH OPERATOR Piotr Katie Daley [facility] CPT-43981 Level 3 Est. Patient 16:44:32 CDT Piotr Katie Edi [facility] CPT-87741 Level 3 Est. Patient 08:48:46 KEELER POLYGRAPH OPERATOR Piotr Wilson Edi [facility] CPT-51586 Level 3 Est. Patient 21:01:21 CDT Piotr Daley [facility] Procedures Code Procedure Name Date Entry Date Standard Description CPT-65046 Sacroiliac jt < 3V - XRAY USE ONLY 16:45:19 KEELER POLYGRAPH OPERATOR 05/09 CPT-40574 LS spine comp w obliques - XRAY USE ONLY 14:52:26 KEELER POLYGRAPH OPERATOR CPT-37631 Chest, 2 views 12:55:58 KEELER POLYGRAPH OPERATOR CPT-G0439 Subsequent Annual Wellness Exam 10:34:52 KEELER POLYGRAPH OPERATOR CPT-34563 BMP - LAB USE ONLY 17:19:11 KEELER POLYGRAPH OPERATOR CPT-09985 PT/INR - LAB USE ONLY 17:19:10 KEELER POLYGRAPH OPERATOR CPT-65164 Venipuncture Draw Fee 17:19:10 KEELER POLYGRAPH OPERATOR CPT-99276 PT/INR - LAB USE ONLY 08:12:25 KEELER POLYGRAPH OPERATOR CPT-20331 Venipuncture Draw Fee 08:12:24 KEELER POLYGRAPH OPERATOR CPT-49675 Venipuncture Draw Fee 11:31:07 KEELER POLYGRAPH OPERATOR CPT-28018 TPSA - LAB USE ONLY 11:31:07 KEELER POLYGRAPH OPERATOR CPT-13300 PT/INR - LAB USE ONLY 11:31:07 KEELER POLYGRAPH OPERATOR CPT-G0439 Subsequent Annual Wellness Exam 09:59:29 KEELER POLYGRAPH OPERATOR CPT-11157 Creatinine - LAB USE ONLY 14:37:55 KEELER POLYGRAPH OPERATOR CPT-31778 PT/INR - LAB USE ONLY 14:37:55 KEELER POLYGRAPH OPERATOR CPT-46492 Venipuncture Draw Fee 14:37:55 KEELER POLYGRAPH OPERATOR CPT-83984 LS spine comp w obliques - XRAY USE ONLY 12:59:25 KEELER POLYGRAPH OPERATOR CPT-72431 PT/INR - LAB USE ONLY 13:49:20 CDT CPT-32363 Venipuncture Draw Fee 13:49:19 CDT CPT-77284 PT/INR - LAB USE ONLY 15:48:49 CDT CPT-59339 Venipuncture Draw Fee 15:48:49 CDT CPT-78316 Venipuncture Draw Fee 11:31:59 CDT CPT-72534 PT/INR - LAB USE ONLY 11:31:59 CDT CPT-12871 Venipuncture Draw Fee 13:29:15 CDT CPT-30108 Thoracolumbar AP/Lat 15:19:19 KEELER POLYGRAPH OPERATOR CPT-G0438 Initial Annual Wellness Exam 12:18:54 KEELER POLYGRAPH OPERATOR CPT-16939 Knee 3V 09:57:38 CDT CPT-OV Office Visit 15:45:01 KEELER POLYGRAPH OPERATOR CPT-07722 Abd compl w upright 17:10:25 CDT
--- OUTSIDE RECORDS SUMMARY | 2018-07-18 09:14 | XMS REPORT | Clinical Summary ---
Author Author Admin, [employer] Organization [employer] Address Unknown Phone Unavailable Allergies, Adverse Reactions, [...] Leg pain, right ICD-729.5 Inactive Sirisha Chen [employer]IST Right leg pain ICD-729.5 Inactive Sirisha Chen [employer] ARTIST Bronchitis-Acute ICD-466.0 Inactive Sirisha Chen [employer]IST Knee pain, left ICD-719.46 Inactive Sirisha Chen [employer]IST Actinic keratoses ICD-702.0 Inactive Sirisha Chen [employer]IST Back pain, thoracic region, left ICD-724.1 Inactive Piotr Daley DO Thoracic back pain ICD-724.5 Inactive Sirisha Chen [employer]IST Back pain lumbar ICD-724.2 Inactive Sirisha Chen [employer]IST Insect bite ICD-919.4 Inactive Sirisha Chen [employer] ARTIST Pruritus ICD-698.9 Inactive Sirisha Chen [employer] ARTIST 04/09 Bronchitis-Acute ICD-466.0 Inactive Sirisha Chen [employer]IST Dyspnea ICD-786.09 Inactive Sirisha Chen [employer]IST 05/09 Medication List Medication Instructions Start Date Stop Date Generic Name NDC Status Provider Patient Instruction NYSTATIN 533205 UNIT/GM EXTERNAL CREAM Apply to rash 2-3 times a day and may repeat as needed NYSTATIN 41902040322 Active Sirisha Chen [employer]IST Active TRIAMCINOLONE ACETONIDE 0.1 % EXTERNAL CREAM apply bid sparingly to rash 2017 TRIAMCINOLONE ACETONIDE 35572875474 Active Sirisha Chen [employer] ARTIST Active WARFARIN SODIUM 4 MG ORAL TABLET 1 tablet by mouth daily WARFARIN SODIUM 82267378715 Active Sirisha Chen [employer]IST Active MELOXICAM 15 MG ORAL TABLET 1 po q day for pain with food MELOXICAM 11388111881 Active Piotr Daley DO Active PREDNISONE 10 MG ORAL TABLET 1 tablet by mouth daily PREDNISONE 45947029008 No Longer Active Emelyn Norris Active TESSALON PERLES 100 MG ORAL CAPSULE 1-2 tablet by mouth 3 times daily 04/16 BENZONATATE 96878652345 No Longer Active Emelyn oNrris Active PREDNISONE 20 MG ORAL TABLET two tabs by mouth today, then one tab by mouth days two and three PREDNISONE 10948682124 No Longer Active Piotr Daley DO Active CYCLOBENZAPRINE HCL 10 MG ORAL TABLET 1 tablet by mouth three times daily as needed for muscle spasm/pain CYCLOBENZAPRINE HCL 35320821809 Active Sirisha Chen LPN Active ZITHROMAX 250 MG ORAL TABLET Take two (2 ) tablets day one, then one (1) tablet a day for four (4) more days AZITHROMYCIN 34801774517 No Longer Active Piotr Daley DO Active PROAIR HFA 108 (90 BASE) MCG/ACT INHALATION AEROSOL SOLUTION 1-2 puffs four times a day as needed ALBUTEROL SULFATE 10822118771 No Longer Active Emelyn Norris Active DOXYCYCLINE HYCLATE 100 MG ORAL CAPSULE 1 cap by mouth BID x10 days DOXYCYCLINE HYCLATE 30036696193 No Longer Active Nella Harris APRN Active PREDNISONE 20 MG ORAL TABLET 2 tabs daily for 3 days, 1 tab daily for 3 days, 1/2 tab daily for 2 days PREDNISONE 56590678639 No Longer Active Matthew Rangel MD Active TRAMADOL HCL 50 MG ORAL TABLET 1 po tid with ES Tylenol TRAMADOL HCL 00872334902 No Longer Active Matthew Rangel MD Active GABAPENTIN 300 MG ORAL CAPSULE 1 po q hs for nerve pain GABAPENTIN 52650788783 No Longer Active Matthew Rangel MD Active PREDNISONE 20 MG ORAL TABLET 2 tablets today, then 1 tablet days 2 through 4 PREDNISONE 73692074796 No Longer Active Piotr Daley DO Active AZITHROMYCIN 250 MG ORAL TABLET 2 po qd x 1 day, then 1 po qd x 4 days 07/12 AZITHROMYCIN 23692140407 No Longer Active Piotr Daley DO Active IBUPROFEN 800 MG ORAL TABLET 1 tab every 8 hours as needed 07/12 IBUPROFEN 86747899773 No Longer Active Piotr Daley DO Active LOMOTIL 2.5-0.025 MG ORAL TABLET 1 to 2 four times a day as needed for diarrhea DIPHENOXYLATE-ATROPINE 88978777567 No Longer Active Piotr Daley DO Active WARFARIN SODIUM 4 MG ORAL TABLET 1 tab every evening WARFARIN SODIUM 24178612632 No Longer Active Piotr Daley DO Active PREDNISONE 20 MG ORAL TABLET 1 tablet twice daily for 2 days, then 1 tablet once daily for 2 days PREDNISONE 37746805907 No Longer Active Piotr Daley DO Active PROMETHAZINE HCL 25 MG ORAL TABLET 1 four times a day as needed for nausea/ vomiting PROMETHAZINE HCL 32071925939 No Longer Active Piotr Daley DO Active TUSSIONEX PENNKINETIC ER 10-8 MG/5ML ORAL SUSPENSION EXTENDED RELEASE 5ml po q12hr PRN Cough HYDROCOD POLST-CHLORPHEN POLST 82576195011 No Longer Active Piotr Daley DO Active AZITHROMYCIN 250 MG ORAL TABLET 2 po qd x 1 day, then 1 po qd x 4 days 10/13 AZITHROMYCIN 95263414747 No Longer Active Piotr Daley DO Active AZITHROMYCIN 250 MG ORAL TABLET 2 po qd x 1 day, then 1 po qd x 4 days 05/07 AZITHROMYCIN 98884991539 No Longer Active Piotr Daley DO Active LISINOPRIL-HYDROCHLOROTHIAZIDE 10-12.5 MG ORAL TABLET 1 tab by mouth daily LISINOPRIL-HYDROCHLOROTHIAZIDE 42954076080 Active Piotr Daley DO Active LISINOPRIL 10 MG ORAL TABLET 1/2-1 tab po every other day LISINOPRIL 57285526248 No Longer Active Piotr Daley DO Active VENTOLIN HFA 108 (90 Base) MCG/ACT INHALATION AEROSOL SOLUTION 2 puffs four times a day PRN cough ALBUTEROL SULFATE 03923444940 No Longer Active Piotr Daley DO Active NYSTATIN-TRIAMCINOLONE 359015-6.1 UNIT/GM-% EXTERNAL CREAM Apply to area BID NYSTATIN-TRIAMCINOLONE 30434043445 No Longer Active Alena Chaivra [employer]IST Active PHISOHEX 3 % LIQD Use Directed HEXACHLOROPHENE 73005536475 No Longer Active Sandra [place] Active AZITHROMYCIN 250 MG ORAL TABLET 2 po qd x 1 day, then 1 po qd x 4 days 10/21 AZITHROMYCIN 79254093986 No Longer Active Katrina Rinaldi MD PhD Active AZITHROMYCIN 250 MG ORAL TABLET 2 po qd x 1 day, then 1 po qd x 4 days 10/16 AZITHROMYCIN 01484117309 No Longer Active Piotr Daley DO Active AZITHROMYCIN 500 MG INTRAVENOUS SOLUTION RECONSTITUTED 1 po q day AZITHROMYCIN 59222902482 No Longer Active Piotr Daley DO Active NYSTATIN-TRIAMCINOLONE 058649-7.1 UNIT/GM-% EXTERNAL CREAM apply bid NYSTATIN-TRIAMCINOLONE 93778809904 No Longer Active Piotr Daley DO Active IBUPROFEN 800 MG ORAL TABLET 1 po q 8 hours prn pain sparinly IBUPROFEN 79728233713 No Longer Active Piotr Daley DO Active VITAMIN D3 5000 UNIT ORAL CAPSULE 1 po daily CHOLECALCIFEROL 10994133197 Active Piotr Daley DO Active DOXYCYCLINE HYCLATE 100 MG ORAL CAPSULE 1 cap by mouth BID x10 days DOXYCYCLINE HYCLATE 100 MG ORAL CAPSULE 3514783 DOXYCYCLINE HYCLATE Inactive IBUPROFEN 800 MG ORAL TABLET 1 po q 8 hours prn pain sparinly IBUPROFEN 800 MG ORAL TABLET 811977 IBUPROFEN Inactive IBUPROFEN 800 MG ORAL TABLET 1 tab every 8 hours as needed 07/12 IBUPROFEN 800 MG ORAL TABLET 790491 IBUPROFEN Inactive LOMOTIL 2.5-0.025 MG ORAL TABLET 1 to 2 four times a day as needed for diarrhea LOMOTIL 2.5-0.025 MG ORAL TABLET 6794367 DIPHENOXYLATE-ATROPINE Inactive NYSTATIN-TRIAMCINOLONE 616556-7.1 UNIT/GM-% EXTERNAL CREAM apply bid NYSTATIN-TRIAMCINOLONE 491717-6.1 UNIT/GM-% EXTERNAL CREAM 2556777 NYSTATIN-TRIAMCINOLONE Inactive NYSTATIN-TRIAMCINOLONE 758338-1.1 UNIT/GM-% EXTERNAL CREAM Apply to area BID NYSTATIN-TRIAMCINOLONE 634754-1.1 UNIT/GM-% EXTERNAL CREAM 4304471 NYSTATIN-TRIAMCINOLONE Inactive PREDNISONE 10 MG ORAL TABLET 1 tablet by mouth daily PREDNISONE 10 MG ORAL TABLET 648474 PREDNISONE Inactive PREDNISONE 20 MG ORAL TABLET two tabs by mouth today, then one tab by mouth days two and three PREDNISONE 20 MG ORAL TABLET 940554 PREDNISONE Inactive PREDNISONE 20 MG ORAL TABLET 2 tabs daily for 3 days, 1 tab daily for 3 days, 1/2 tab daily for 2 days PREDNISONE 20 MG ORAL TABLET 377162 PREDNISONE Inactive PREDNISONE 20 MG ORAL TABLET 1 tablet twice daily for 2 days, then 1 tablet once daily for 2 days PREDNISONE 20 MG ORAL TABLET 838246 PREDNISONE Inactive PREDNISONE 20 MG ORAL TABLET 2 tablets today, then 1 tablet days 2 through 4 PREDNISONE 20 MG ORAL TABLET 986949 PREDNISONE Inactive PROMETHAZINE HCL 25 MG ORAL TABLET 1 four times a day as needed for nausea/ vomiting PROMETHAZINE HCL 25 MG ORAL TABLET 837854 PROMETHAZINE HCL Inactive LISINOPRIL 10 MG ORAL TABLET 1/2-1 tab po every other day LISINOPRIL 10 MG ORAL TABLET 047784 LISINOPRIL Inactive TESSALON PERLES 100 MG ORAL CAPSULE 1-2 tablet by mouth 3 times daily 04/16 LEE PERLES 100 MG ORAL CAPSULE 933009 BENZONATATE Inactive TRAMADOL HCL 50 MG ORAL TABLET 1 po tid with ES Tylenol TRAMADOL HCL 50 MG ORAL TABLET 736395 TRAMADOL HCL Inactive GABAPENTIN 300 MG ORAL CAPSULE 1 po q hs for nerve pain GABAPENTIN 300 MG ORAL CAPSULE 215767 GABAPENTIN Inactive ZITHROMAX 250 MG ORAL TABLET Take two (2 ) tablets day one, then one (1) tablet a day for four (4) more days ZITHROMAX 250 MG ORAL TABLET 309652 AZITHROMYCIN Inactive AZITHROMYCIN 250 MG ORAL TABLET 2 po qd x 1 day, then 1 po qd x 4 days 10/16 AZITHROMYCIN 250 MG ORAL TABLET 705437 AZITHROMYCIN Inactive AZITHROMYCIN 250 MG ORAL TABLET 2 po qd x 1 day, then 1 po qd x 4 days 10/21 AZITHROMYCIN 250 MG ORAL TABLET 949424 AZITHROMYCIN Inactive AZITHROMYCIN 250 MG ORAL TABLET 2 po qd x 1 day, then 1 po qd x 4 days 05/07 AZITHROMYCIN 250 MG ORAL TABLET 316420 AZITHROMYCIN Inactive AZITHROMYCIN 250 MG ORAL TABLET 2 po qd x 1 day, then 1 po qd x 4 days 10/13 AZITHROMYCIN 250 MG ORAL TABLET 312500 AZITHROMYCIN Inactive AZITHROMYCIN 250 MG ORAL TABLET 2 po qd x 1 day, then 1 po qd x 4 days 07/12 AZITHROMYCIN 250 MG ORAL TABLET 773237 AZITHROMYCIN Inactive AZITHROMYCIN 500 MG INTRAVENOUS SOLUTION RECONSTITUTED 1 po q day AZITHROMYCIN 500 MG INTRAVENOUS SOLUTION RECONSTITUTED 17995243851 AZITHROMYCIN Inactive WARFARIN SODIUM 4 MG ORAL TABLET 1 tab every evening WARFARIN SODIUM 4 MG ORAL TABLET 043387 WARFARIN SODIUM Inactive VENTOLIN HFA 108 (90 [...] Measured Encounters Code Encounter Date Provider Facility CPT-08959 [id number] Vst-Est Level III 14:29:05 CDT Piotr Wilson [facility] CPT-44958 Level 3 Est. Patient 15:59:25 ATHLETICS TEACHER Piotr Daley [facility] CPT-96773 Level 3 Est. Patient 12:33:59 ATHLETICS TEACHER Piotr Daley [facility] CPT-90497 Level 3 Est. Patient 15:56:17 ATHLETICS TEACHER Piotr Daley [facility] CPT-11264 Level 3 Est. Patient 10:34:54 ATHLETICS TEACHER Piotr Wilson [facility] CPT-53652 Level 3 Est. Patient 17:10:19 CDT Nella Harris APRN [facility] CPT-94433 Level 3 Est. Patient 10:48:17 ATHLETICS TEACHER Matthew Rangel MD [facility] CPT-23916 Level 4 Est. Patient 17:15:07 ATHLETICS TEACHER Piotr Daley [facility] CPT-20904 Level 3 Est. Patient 12:46:13 ATHLETICS TEACHER Piotr Daley [facility] CPT-90142 Level 3 Est. Patient 15:14:31 ATHLETICS TEACHER Piotr Daley [facility] CPT-25605 Level 3 Est. Patient 09:20:13 ATHLETICS TEACHER Piotr Daley [facility] CPT-30684 Level 3 Est. Patient 09:49:40 CDT Piotr Wilson [facility] CPT-95547 Level 3 Est. Patient 16:28:11 CDT Piotr Daley [facility] CPT-89869 Level 3 Est. Patient 12:41:58 ATHLETICS TEACHER Piotr Daley [facility] CPT-77429 Level 3 Est. Patient 09:21:24 CDT Piotr Daley [facility] CPT-12625 Level 3 Est. Patient 09:21:11 CDT Piotr Daley [facility] CPT-13127 Level 3 Est. Patient 11:16:29 ATHLETICS TEACHER Piotr Daley [facility] CPT-26406 Level 3 Est. Patient 18:40:19 ATHLETICS TEACHER Piotr Daley [facility] CPT-97149 Level 3 Est. Patient 19:30:50 CDT Piotr Daley [facility] CPT-36025 Level 3 Est. Patient 22:06:44 CDT Katrina Rinaldi MD [facility] CPT-37921 Level 3 Est. Patient 14:20:00 CDT Piotr Katie Daley [facility] CPT-62195 Level 3 Est. Patient 14:15:22 ATHLETICS TEACHER Piotr Daley [facility] CPT-66358 Level 3 Est. Patient 20:19:57 ATHLETICS TEACHER Piotr Daley [facility] CPT-01944 Level 3 Est. Patient 16:44:32 CDT Piotr Katie Edi [facility] CPT-00979 Level 3 Est. Patient 08:48:46 ATHLETICS TEACHER Piotr Katie Edi [facility] CPT-25326 Level 3 Est. Patient 21:01:21 CDT Piotr Daley [facility] Procedures Code Procedure Name Date Entry Date Standard Description CPT-16856 Sacroiliac jt < 3V - XRAY USE ONLY 16:45:19 ATHLETICS TEACHER 05/09 CPT-40842 LS spine comp w obliques - XRAY USE ONLY 14:52:26 ATHLETICS TEACHER CPT-28882 Chest, 2 views 12:55:58 ATHLETICS TEACHER CPT-G0439 Subsequent Annual Wellness Exam 10:34:52 ATHLETICS TEACHER CPT-83865 BMP - LAB USE ONLY 17:19:11 ATHLETICS TEACHER CPT-81242 PT/INR - LAB USE ONLY 17:19:10 ATHLETICS TEACHER CPT-57847 Venipuncture Draw Fee 17:19:10 ATHLETICS TEACHER CPT-31756 PT/INR - LAB USE ONLY 08:12:25 ATHLETICS TEACHER CPT-93081 Venipuncture Draw Fee 08:12:24 ATHLETICS TEACHER CPT-32772 Venipuncture Draw Fee 11:31:07 ATHLETICS TEACHER CPT-77532 TPSA - LAB USE ONLY 11:31:07 ATHLETICS TEACHER CPT-20399 PT/INR - LAB USE ONLY 11:31:07 ATHLETICS TEACHER CPT-G0439 Subsequent Annual Wellness Exam 09:59:29 ATHLETICS TEACHER CPT-73506 Creatinine - LAB USE ONLY 14:37:55 ATHLETICS TEACHER CPT-29328 PT/INR - LAB USE ONLY 14:37:55 ATHLETICS TEACHER CPT-86980 Venipuncture Draw Fee 14:37:55 ATHLETICS TEACHER CPT-76271 LS spine comp w obliques - XRAY USE ONLY 12:59:25 ATHLETICS TEACHER CPT-62094 PT/INR - LAB USE ONLY 13:49:20 CDT CPT-74246 Venipuncture Draw Fee 13:49:19 CDT CPT-48112 PT/INR - LAB USE ONLY 15:48:49 CDT CPT-42393 Venipuncture Draw Fee 15:48:49 CDT CPT-09859 Venipuncture Draw Fee 11:31:59 CDT CPT-24761 PT/INR - LAB USE ONLY 11:31:59 CDT CPT-77971 Venipuncture Draw Fee 13:29:15 CDT CPT-85084 Thoracolumbar AP/Lat 15:19:19 ATHLETICS TEACHER CPT-G0438 Initial Annual Wellness Exam 12:18:54 ATHLETICS TEACHER CPT-61431 Knee 3V 09:57:38 CDT CPT-OV Office Visit 15:45:01 ATHLETICS TEACHER CPT-14117 Abd compl w upright 17:10:25 CDT
--- OUTSIDE RECORDS SUMMARY | 2018-07-18 09:15 | XMS REPORT | Clinical Summary ---
Author Author Admin, [facility] Organization [employer] Address Unknown Phone Unavailable Allergies, Adverse Reactions, [...] of unspecified type of vessel, [place] or graft Back pain, thoracic region, [...] Leg pain, right ICD-729.5 Inactive 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 Right leg pain ICD-729.5 Inactive 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 Bronchitis-Acute ICD-466.0 Inactive 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 Knee pain, left ICD-719.46 Inactive 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 Actinic keratoses ICD-702.0 Inactive 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 Back pain, thoracic region, left ICD-724.1 Inactive Piotr Daley DO Thoracic back pain ICD-724.5 Inactive 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 Back pain lumbar ICD-724.2 Inactive 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 Insect bite ICD-919.4 Inactive 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 Pruritus ICD-698.9 Inactive 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 04/09 Bronchitis-Acute ICD-466.0 Inactive 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 Dyspnea ICD-786.09 Inactive 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 05/09 Medication List Medication Instructions Start Date Stop Date Generic Name NDC Status Provider Patient Instruction NYSTATIN 541473 UNIT/GM EXTERNAL CREAM Apply to rash 2-3 times a day and may repeat as needed NYSTATIN 70980761783 Active 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 Active TRIAMCINOLONE ACETONIDE 0.1 % EXTERNAL CREAM apply bid sparingly to rash 2017 TRIAMCINOLONE ACETONIDE 82042879098 Active 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 Active WARFARIN SODIUM 4 MG ORAL TABLET 1 tablet by mouth daily WARFARIN SODIUM 15025753307 Active 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 Active MELOXICAM 15 MG ORAL TABLET 1 po q day for pain with food MELOXICAM 21388554233 Active Piotr Daley DO Active PREDNISONE 10 MG ORAL TABLET 1 tablet by mouth daily PREDNISONE 79725455817 No Longer Active Emelyn Norris Active TESSALON PERLES 100 MG ORAL CAPSULE 1-2 tablet by mouth 3 times daily 04/16 BENZONATATE 60832778022 No Longer Active Emelyn Norris Active PREDNISONE 20 MG ORAL TABLET two tabs by mouth today, then one tab by mouth days two and three PREDNISONE 06413876259 No Longer Active Piotr Daley DO Active CYCLOBENZAPRINE HCL 10 MG ORAL TABLET 1 tablet by mouth three times daily as needed for muscle spasm/pain CYCLOBENZAPRINE HCL 11418651566 Active Sirisha Chen LPN Active ZITHROMAX 250 MG ORAL TABLET Take two (2 ) tablets day one, then one (1) tablet a day for four (4) more days AZITHROMYCIN 39236578911 No Longer Active Piotr Daley DO Active PROAIR HFA 108 (90 BASE) MCG/ACT INHALATION AEROSOL SOLUTION 1-2 puffs four times a day as needed ALBUTEROL SULFATE 33879601361 No Longer Active Emelyn Norris Active DOXYCYCLINE HYCLATE 100 MG ORAL CAPSULE 1 cap by mouth BID x10 days DOXYCYCLINE HYCLATE 13456788572 No Longer Active Nella Harris APRN Active PREDNISONE 20 MG ORAL TABLET 2 tabs daily for 3 days, 1 tab daily for 3 days, 1/2 tab daily for 2 days PREDNISONE 99425806829 No Longer Active Matthew Rangel MD Active TRAMADOL HCL 50 MG ORAL TABLET 1 po tid with ES Tylenol TRAMADOL HCL 81915885692 No Longer Active Matthew Rangel MD Active GABAPENTIN 300 MG ORAL CAPSULE 1 po q hs for nerve pain GABAPENTIN 52490974508 No Longer Active Matthew Rangel MD Active PREDNISONE 20 MG ORAL TABLET 2 tablets today, then 1 tablet days 2 through 4 PREDNISONE 87924229119 No Longer Active Piotr Daley DO Active AZITHROMYCIN 250 MG ORAL TABLET 2 po qd x 1 day, then 1 po qd x 4 days 07/12 AZITHROMYCIN 55671230651 No Longer Active Piotr Daley DO Active IBUPROFEN 800 MG ORAL TABLET 1 tab every 8 hours as needed 07/12 IBUPROFEN 38929535654 No Longer Active Piotr Daley DO Active LOMOTIL 2.5-0.025 MG ORAL TABLET 1 to 2 four times a day as needed for diarrhea DIPHENOXYLATE-ATROPINE 37071812063 No Longer Active Piotr Daley DO Active WARFARIN SODIUM 4 MG ORAL TABLET 1 tab every evening WARFARIN SODIUM 00021729022 No Longer Active Piotr Daley DO Active PREDNISONE 20 MG ORAL TABLET 1 tablet twice daily for 2 days, then 1 tablet once daily for 2 days PREDNISONE 74640768673 No Longer Active Piotr Daley DO Active PROMETHAZINE HCL 25 MG ORAL TABLET 1 four times a day as needed for nausea/ vomiting PROMETHAZINE HCL 68813546721 No Longer Active Piotr Daley DO Active TUSSIONEX PENNKINETIC ER 10-8 MG/5ML ORAL SUSPENSION EXTENDED RELEASE 5ml po q12hr PRN Cough HYDROCOD POLST-CHLORPHEN POLST 50519510471 No Longer Active Piotr Daley DO Active AZITHROMYCIN 250 MG ORAL TABLET 2 po qd x 1 day, then 1 po qd x 4 days 10/13 AZITHROMYCIN 25176967425 No Longer Active Piotr Daley DO Active AZITHROMYCIN 250 MG ORAL TABLET 2 po qd x 1 day, then 1 po qd x 4 days 05/07 AZITHROMYCIN 68818561924 No Longer Active Piotr Daley DO Active LISINOPRIL-HYDROCHLOROTHIAZIDE 10-12.5 MG ORAL TABLET 1 tab by mouth daily LISINOPRIL-HYDROCHLOROTHIAZIDE 85220408709 Active Piotr Daley DO Active LISINOPRIL 10 MG ORAL TABLET 1/2-1 tab po every other day LISINOPRIL 09743400123 No Longer Active Piotr Daley DO Active VENTOLIN HFA 108 (90 Base) MCG/ACT INHALATION AEROSOL SOLUTION 2 puffs four times a day PRN cough ALBUTEROL SULFATE 39353373016 No Longer Active Piotr Daley DO Active NYSTATIN-TRIAMCINOLONE 876340-6.1 UNIT/GM-% EXTERNAL CREAM Apply to area BID NYSTATIN-TRIAMCINOLONE 47847997346 No Longer Active Alena Chavira [employer]CH[employer]IC APPRENTICE Active PHISOHEX 3 % LIQD Use Directed HEXACHLOROPHENE 15509671409 No Longer Active Sandra Seabrook Active AZITHROMYCIN 250 MG ORAL TABLET 2 po qd x 1 day, then 1 po qd x 4 days 10/21 AZITHROMYCIN 73417617217 No Longer Active Katrina Rinaldi MD PhD Active AZITHROMYCIN 250 MG ORAL TABLET 2 po qd x 1 day, then 1 po qd x 4 days 10/16 AZITHROMYCIN 94509838199 No Longer Active Piotr Daley DO Active AZITHROMYCIN 500 MG INTRAVENOUS SOLUTION RECONSTITUTED 1 po q day AZITHROMYCIN 26470340842 No Longer Active Piotr Daley DO Active NYSTATIN-TRIAMCINOLONE 433740-4.1 UNIT/GM-% EXTERNAL CREAM apply bid NYSTATIN-TRIAMCINOLONE 40024330520 No Longer Active Piotr Daley DO Active IBUPROFEN 800 MG ORAL TABLET 1 po q 8 hours prn pain sparinly IBUPROFEN 09959273776 No Longer Active Piotr Daley DO Active VITAMIN D3 5000 UNIT ORAL CAPSULE 1 po daily CHOLECALCIFEROL 38043721830 Active Piotr Daley DO Active DOXYCYCLINE HYCLATE 100 MG ORAL CAPSULE 1 cap by mouth BID x10 days DOXYCYCLINE HYCLATE 100 MG ORAL CAPSULE 0514136 DOXYCYCLINE HYCLATE Inactive IBUPROFEN 800 MG ORAL TABLET 1 po q 8 hours prn pain sparinly IBUPROFEN 800 MG ORAL TABLET 733707 IBUPROFEN Inactive IBUPROFEN 800 MG ORAL TABLET 1 tab every 8 hours as needed 07/12 IBUPROFEN 800 MG ORAL TABLET 466414 IBUPROFEN Inactive LOMOTIL 2.5-0.025 MG ORAL TABLET 1 to 2 four times a day as needed for diarrhea LOMOTIL 2.5-0.025 MG ORAL TABLET 5018191 DIPHENOXYLATE-ATROPINE Inactive NYSTATIN-TRIAMCINOLONE 580465-0.1 UNIT/GM-% EXTERNAL CREAM apply bid NYSTATIN-TRIAMCINOLONE 017223-6.1 UNIT/GM-% EXTERNAL CREAM 1064333 NYSTATIN-TRIAMCINOLONE Inactive NYSTATIN-TRIAMCINOLONE 261937-7.1 UNIT/GM-% EXTERNAL CREAM Apply to area BID NYSTATIN-TRIAMCINOLONE 449592-5.1 UNIT/GM-% EXTERNAL CREAM 0652150 NYSTATIN-TRIAMCINOLONE Inactive PREDNISONE 10 MG ORAL TABLET 1 tablet by mouth daily PREDNISONE 10 MG ORAL TABLET 189470 PREDNISONE Inactive PREDNISONE 20 MG ORAL TABLET two tabs by mouth today, then one tab by mouth days two and three PREDNISONE 20 MG ORAL TABLET 850996 PREDNISONE Inactive PREDNISONE 20 MG ORAL TABLET 2 tabs daily for 3 days, 1 tab daily for 3 days, 1/2 tab daily for 2 days PREDNISONE 20 MG ORAL TABLET 170343 PREDNISONE Inactive PREDNISONE 20 MG ORAL TABLET 1 tablet twice daily for 2 days, then 1 tablet once daily for 2 days PREDNISONE 20 MG ORAL TABLET 010249 PREDNISONE Inactive PREDNISONE 20 MG ORAL TABLET 2 tablets today, then 1 tablet days 2 through 4 PREDNISONE 20 MG ORAL TABLET 394787 PREDNISONE Inactive PROMETHAZINE HCL 25 MG ORAL TABLET 1 four times a day as needed for nausea/ vomiting PROMETHAZINE HCL 25 MG ORAL TABLET 112273 PROMETHAZINE HCL Inactive LISINOPRIL 10 MG ORAL TABLET 1/2-1 tab po every other day LISINOPRIL 10 MG ORAL TABLET 956483 LISINOPRIL Inactive TESSALON PERLES 100 MG ORAL CAPSULE 1-2 tablet by mouth 3 times daily 04/16 LEE PERLES 100 MG ORAL CAPSULE 148860 BENZONATATE Inactive TRAMADOL HCL 50 MG ORAL TABLET 1 po tid with ES Tylenol TRAMADOL HCL 50 MG ORAL TABLET 886398 TRAMADOL HCL Inactive GABAPENTIN 300 MG ORAL CAPSULE 1 po q hs for nerve pain GABAPENTIN 300 MG ORAL CAPSULE 454788 GABAPENTIN Inactive ZITHROMAX 250 MG ORAL TABLET Take two (2 ) tablets day one, then one (1) tablet a day for four (4) more days ZITHROMAX 250 MG ORAL TABLET 464284 AZITHROMYCIN Inactive AZITHROMYCIN 250 MG ORAL TABLET 2 po qd x 1 day, then 1 po qd x 4 days 10/16 AZITHROMYCIN 250 MG ORAL TABLET 031377 AZITHROMYCIN Inactive AZITHROMYCIN 250 MG ORAL TABLET 2 po qd x 1 day, then 1 po qd x 4 days 10/21 AZITHROMYCIN 250 MG ORAL TABLET 311427 AZITHROMYCIN Inactive AZITHROMYCIN 250 MG ORAL TABLET 2 po qd x 1 day, then 1 po qd x 4 days 05/07 AZITHROMYCIN 250 MG ORAL TABLET 431323 AZITHROMYCIN Inactive AZITHROMYCIN 250 MG ORAL TABLET 2 po qd x 1 day, then 1 po qd x 4 days 10/13 AZITHROMYCIN 250 MG ORAL TABLET 593662 AZITHROMYCIN Inactive AZITHROMYCIN 250 MG ORAL TABLET 2 po qd x 1 day, then 1 po qd x 4 days 07/12 AZITHROMYCIN 250 MG ORAL TABLET 309891 AZITHROMYCIN Inactive AZITHROMYCIN 500 MG INTRAVENOUS SOLUTION RECONSTITUTED 1 po q day AZITHROMYCIN 500 MG INTRAVENOUS SOLUTION RECONSTITUTED 51378602948 AZITHROMYCIN Inactive WARFARIN SODIUM 4 MG ORAL TABLET 1 tab every evening WARFARIN SODIUM 4 MG ORAL TABLET 057603 WARFARIN SODIUM Inactive VENTOLIN HFA 108 (90 [...] Measured Encounters Code Encounter Date Provider Facility CPT-55377 [id number] Vst-Est Level III 14:29:05 CDT Piotr Wilson [facility] CPT-76106 Level 3 Est. Patient 15:59:25 CAN STRIPER Piotr Daley [facility] CPT-55467 Level 3 Est. Patient 12:33:59 CAN STRIPER Piotr Daley [facility] CPT-11827 Level 3 Est. Patient 15:56:17 CAN STRIPER Piotr Daley [facility] CPT-61406 Level 3 Est. Patient 10:34:54 CAN STRIPER Piotr Wilson [facility] CPT-13091 Level 3 Est. Patient 17:10:19 CDT Nella Harris APRN [facility] CPT-26351 Level 3 Est. Patient 10:48:17 CAN STRIPER Matthew Rangel MD [facility] CPT-18704 Level 4 Est. Patient 17:15:07 CAN STRIPER Piotr Daley [facility] CPT-26743 Level 3 Est. Patient 12:46:13 CAN STRIPER Piotr Daley [facility] CPT-13129 Level 3 Est. Patient 15:14:31 CAN STRIPER Piotr Daely [facility] CPT-24499 Level 3 Est. Patient 09:20:13 CAN STRIPER Piotr Daley [facility] CPT-80437 Level 3 Est. Patient 09:49:40 CDT Piotr Wilson [facility] CPT-36746 Level 3 Est. Patient 16:28:11 CDT Piotr Daley [facility] CPT-11499 Level 3 Est. Patient 12:41:58 CAN STRIPER Piotr Daley [facility] CPT-36695 Level 3 Est. Patient 09:21:24 CDT Piotr Daley [facility] CPT-64081 Level 3 Est. Patient 09:21:11 CDT Piotr Daley [facility] CPT-89462 Level 3 Est. Patient 11:16:29 CAN STRIPER Piotr Daley [facility] CPT-76195 Level 3 Est. Patient 18:40:19 CAN STRIPER Piotr Daley [facility] CPT-30357 Level 3 Est. Patient 19:30:50 CDT Piotr Daley [facility] CPT-99238 Level 3 Est. Patient 22:06:44 CDT Katrina Rinaldi MD [facility] CPT-87074 Level 3 Est. Patient 14:20:00 CDT Piotr Katie Daley [facility] CPT-33088 Level 3 Est. Patient 14:15:22 CAN STRIPER Piotr Daley [facility] CPT-62234 Level 3 Est. Patient 20:19:57 CAN STRIPER Piotr Daley [facility] CPT-04862 Level 3 Est. Patient 16:44:32 CDT Piotr Katie Edi [facility] CPT-85893 Level 3 Est. Patient 08:48:46 CAN STRIPER Piotr Katie Edi [facility] CPT-28827 Level 3 Est. Patient 21:01:21 CDT Piotr Daley [facility] Procedures Code Procedure Name Date Entry Date Standard Description CPT-32413 Sacroiliac jt < 3V - XRAY USE ONLY 16:45:19 CAN STRIPER 05/09 CPT-83251 LS spine comp w obliques - XRAY USE ONLY 14:52:26 CAN STRIPER CPT-22586 Chest, 2 views 12:55:58 CAN STRIPER CPT-G0439 Subsequent Annual Wellness Exam 10:34:52 CAN STRIPER CPT-71943 BMP - LAB USE ONLY 17:19:11 CAN STRIPER CPT-05262 PT/INR - LAB USE ONLY 17:19:10 CAN STRIPER CPT-42993 Venipuncture Draw Fee 17:19:10 CAN STRIPER CPT-91519 PT/INR - LAB USE ONLY 08:12:25 CAN STRIPER CPT-53892 Venipuncture Draw Fee 08:12:24 CAN STRIPER CPT-64502 Venipuncture Draw Fee 11:31:07 CAN STRIPER CPT-44944 TPSA - LAB USE ONLY 11:31:07 CAN STRIPER CPT-66341 PT/INR - LAB USE ONLY 11:31:07 CAN STRIPER CPT-G0439 Subsequent Annual Wellness Exam 09:59:29 CAN STRIPER CPT-31077 Creatinine - LAB USE ONLY 14:37:55 CAN STRIPER CPT-27412 PT/INR - LAB USE ONLY 14:37:55 CAN STRIPER CPT-73993 Venipuncture Draw Fee 14:37:55 CAN STRIPER CPT-95428 LS spine comp w obliques - XRAY USE ONLY 12:59:25 CAN STRIPER CPT-63193 PT/INR - LAB USE ONLY 13:49:20 CDT CPT-35067 Venipuncture Draw Fee 13:49:19 CDT CPT-89466 PT/INR - LAB USE ONLY 15:48:49 CDT CPT-25530 Venipuncture Draw Fee 15:48:49 CDT CPT-89451 Venipuncture Draw Fee 11:31:59 CDT CPT-22865 PT/INR - LAB USE ONLY 11:31:59 CDT CPT-32637 Venipuncture Draw Fee 13:29:15 CDT CPT-52222 Thoracolumbar AP/Lat 15:19:19 CAN STRIPER CPT-G0438 Initial Annual Wellness Exam 12:18:54 CAN STRIPER CPT-56977 Knee 3V 09:57:38 CDT CPT-OV Office Visit 15:45:01 CAN STRIPER CPT-35737 Abd compl w upright 17:10:25 CDT
--- OUTSIDE RECORDS SUMMARY | 2018-07-18 09:16 | XMS REPORT | Clinical Summary ---
Author Author Admin, [employer] Address Unknown Phone Unavailable Allergies, Adverse Reactions, [...] Coronary atherosclerosis of unspecified type of vessel, [place] or graft Back pain, thoracic region, left [...] Knee pain, left ICD-719.46 Inactive Sirisha Chen [employer] Actinic keratoses ICD-702.0 Inactive Sirisha Chen [employer] Back pain, thoracic region, left ICD-724.1 Inactive Piotr Daley DO Thoracic back pain ICD-724.5 Inactive Sirisha Chen [employer] Back pain lumbar ICD-724.2 Inactive Sirisha Chen [employer] Insect bite ICD-919.4 Inactive Sirisha Chen [employer] Pruritus ICD-698.9 Inactive Sirisha Chen [employer] 04/09 Bronchitis-Acute ICD-466.0 Inactive Sirisha Chen [employer] Dyspnea ICD-786.09 Inactive Sirisha Chen [employer] 05/09 Medication List Medication Instructions Start Date Stop Date Generic Name NDC Status Provider Patient Instruction NYSTATIN 308308 UNIT/GM EXTERNAL CREAM Apply to rash 2-3 times a day and may repeat as needed NYSTATIN 22498288998 Active Sirisha Chen [employer] Active TRIAMCINOLONE ACETONIDE 0.1 % EXTERNAL CREAM apply bid sparingly to rash 2017 TRIAMCINOLONE ACETONIDE 24171017625 Active Sirisha Chen [employer] Active WARFARIN SODIUM 4 MG ORAL TABLET 1 tablet by mouth daily WARFARIN SODIUM 64703079443 Active Sirisha Chen [employer] Active MELOXICAM 15 MG ORAL TABLET 1 po q day for pain with food MELOXICAM 37774374304 Active Piotr Daley DO Active PREDNISONE 10 MG ORAL TABLET 1 tablet by mouth daily PREDNISONE 47847750187 No Longer Active Emelyn Norris Active TESSALON PERLES 100 MG ORAL CAPSULE 1-2 tablet by mouth 3 times daily 04/16 BENZONATATE 00287966048 No Longer Active Emelyn Norris Active PREDNISONE 20 MG ORAL TABLET two tabs by mouth today, then one tab by mouth days two and three PREDNISONE 68913884452 No Longer Active Piotr Daley DO Active CYCLOBENZAPRINE HCL 10 MG ORAL TABLET 1 tablet by mouth three times daily as needed for muscle spasm/pain CYCLOBENZAPRINE HCL 29897996847 Active Sirisha Chen LPN Active ZITHROMAX 250 MG ORAL TABLET Take two (2 ) tablets day one, then one (1) tablet a day for four (4) more days AZITHROMYCIN 08132654452 No Longer Active Piotr Daley DO Active PROAIR HFA 108 (90 BASE) MCG/ACT INHALATION AEROSOL SOLUTION 1-2 puffs four times a day as needed ALBUTEROL SULFATE 09993381744 No Longer Active Emelyn Norris Active DOXYCYCLINE HYCLATE 100 MG ORAL CAPSULE 1 cap by mouth BID x10 days DOXYCYCLINE HYCLATE 36027263770 No Longer Active Nella Harris APRN Active PREDNISONE 20 MG ORAL TABLET 2 tabs daily for 3 days, 1 tab daily for 3 days, 1/2 tab daily for 2 days PREDNISONE 14824737480 No Longer Active Matthew Rangel MD Active TRAMADOL HCL 50 MG ORAL TABLET 1 po tid with ES Tylenol TRAMADOL HCL 05543679956 No Longer Active Matthew Rangel MD Active GABAPENTIN 300 MG ORAL CAPSULE 1 po q hs for nerve pain GABAPENTIN 81086546765 No Longer Active Matthew Rangel MD Active PREDNISONE 20 MG ORAL TABLET 2 tablets today, then 1 tablet days 2 through 4 PREDNISONE 57081870664 No Longer Active Piotr Daley DO Active AZITHROMYCIN 250 MG ORAL TABLET 2 po qd x 1 day, then 1 po qd x 4 days 07/12 AZITHROMYCIN 94722590086 No Longer Active Piotr W Edi DO Active IBUPROFEN 800 MG ORAL TABLET 1 tab every 8 hours as needed 07/12 IBUPROFEN 05668126940 No Longer Active Piotr Daley DO Active LOMOTIL 2.5-0.025 MG ORAL TABLET 1 to 2 four times a day as needed for diarrhea DIPHENOXYLATE-ATROPINE 76580000390 No Longer Active Piotr aDley DO Active WARFARIN SODIUM 4 MG ORAL TABLET 1 tab every evening WARFARIN SODIUM 05484254027 No Longer Active Piotr Daley DO Active PREDNISONE 20 MG ORAL TABLET 1 tablet twice daily for 2 days, then 1 tablet once daily for 2 days PREDNISONE 86207135370 No Longer Active Piotr Daley DO Active PROMETHAZINE HCL 25 MG ORAL TABLET 1 four times a day as needed for nausea/ vomiting PROMETHAZINE HCL 48084553445 No Longer Active Piotr Daley DO Active TUSSIONEX PENNKINETIC ER 10-8 MG/5ML ORAL SUSPENSION EXTENDED RELEASE 5ml po q12hr PRN Cough HYDROCOD POLST-CHLORPHEN POLST 91270559232 No Longer Active Piotr Daley DO Active AZITHROMYCIN 250 MG ORAL TABLET 2 po qd x 1 day, then 1 po qd x 4 days 10/13 AZITHROMYCIN 62192981255 No Longer Active Piotr Daley DO Active AZITHROMYCIN 250 MG ORAL TABLET 2 po qd x 1 day, then 1 po qd x 4 days 05/07 AZITHROMYCIN 92048205896 No Longer Active Piotr Daley DO Active LISINOPRIL-HYDROCHLOROTHIAZIDE 10-12.5 MG ORAL TABLET 1 tab by mouth daily LISINOPRIL-HYDROCHLOROTHIAZIDE 78357720172 Active Piotr Daley DO Active LISINOPRIL 10 MG ORAL TABLET 1/2-1 tab po every other day LISINOPRIL 01784296541 No Longer Active Piotr Daley DO Active VENTOLIN HFA 108 (90 Base) MCG/ACT INHALATION AEROSOL SOLUTION 2 puffs four times a day PRN cough ALBUTEROL SULFATE 82592933805 No Longer Active Piotr Daley DO Active NYSTATIN-TRIAMCINOLONE 483439-9.1 UNIT/GM-% EXTERNAL CREAM Apply to area BID NYSTATIN-TRIAMCINOLONE 65802865844 No Longer Active Alena Chavira [employer] Active PHISOHEX 3 % LIQD Use Directed HEXACHLOROPHENE 49015073964 No Longer Active Sandra Havana Active AZITHROMYCIN 250 MG ORAL TABLET 2 po qd x 1 day, then 1 po qd x 4 days 10/21 AZITHROMYCIN 25471034775 No Longer Active Katrina Rinaldi MD PhD Active AZITHROMYCIN 250 MG ORAL TABLET 2 po qd x 1 day, then 1 po qd x 4 days 10/16 AZITHROMYCIN 20590611344 No Longer Active Piotr Daley DO Active AZITHROMYCIN 500 MG INTRAVENOUS SOLUTION RECONSTITUTED 1 po q day AZITHROMYCIN 30496099392 No Longer Active Piotr Daley DO Active NYSTATIN-TRIAMCINOLONE 903756-8.1 UNIT/GM-% EXTERNAL CREAM apply bid NYSTATIN-TRIAMCINOLONE 34898682317 No Longer Active Piotr Daley DO Active IBUPROFEN 800 MG ORAL TABLET 1 po q 8 hours prn pain sparinly IBUPROFEN 92278022374 No Longer Active Piotr Daley DO Active VITAMIN D3 5000 UNIT ORAL CAPSULE 1 po daily CHOLECALCIFEROL 75724223193 Active Piotr Daley DO Active IBUPROFEN 800 MG ORAL TABLET 1 po q 8 hours prn pain sparinly IBUPROFEN 800 MG ORAL TABLET 891504 IBUPROFEN Inactive NYSTATIN-TRIAMCINOLONE 279746-7.1 UNIT/GM-% EXTERNAL CREAM apply bid NYSTATIN-TRIAMCINOLONE 379377-0.1 UNIT/GM-% EXTERNAL CREAM 4099676 NYSTATIN-TRIAMCINOLONE Inactive AZITHROMYCIN 500 MG INTRAVENOUS SOLUTION RECONSTITUTED 1 po q day AZITHROMYCIN 500 MG INTRAVENOUS SOLUTION RECONSTITUTED 27964396727 AZITHROMYCIN Inactive VENTOLIN HFA 108 (90 Base) MCG/ACT INHALATION AEROSOL SOLUTION 2 puffs four times a day PRN cough VENTOLIN HFA 108 (90 Base) MCG/ ACT INHALATION AEROSOL SOLUTION ALBUTEROL SULFATE Inactive LISINOPRIL 10 MG ORAL TABLET 1/2-1 tab po every other day LISINOPRIL 10 MG ORAL TABLET 588833 LISINOPRIL Inactive TUSSIONEX PENNKINETIC ER 10-8 MG/5ML ORAL SUSPENSION EXTENDED RELEASE 5ml po q12hr PRN Cough TUSSIONEX PENNKINETIC ER 10-8 MG/5ML ORAL SUSPENSION EXTENDED RELEASE HYDROCOD POLST-CHLORPHEN POLST Inactive PROMETHAZINE HCL 25 MG ORAL TABLET 1 four times a day as needed for nausea/ vomiting PROMETHAZINE HCL 25 MG ORAL TABLET 088239 PROMETHAZINE HCL Inactive PREDNISONE 20 MG ORAL TABLET 1 tablet twice daily for 2 days, then 1 tablet once daily for 2 days PREDNISONE 20 MG ORAL TABLET 515870 PREDNISONE Inactive WARFARIN SODIUM 4 MG ORAL TABLET 1 tab every evening WARFARIN SODIUM 4 MG ORAL TABLET 242115 WARFARIN SODIUM Inactive LOMOTIL 2.5-0.025 MG ORAL TABLET 1 to 2 four times a day as needed for diarrhea LOMOTIL 2.5-0.025 MG ORAL TABLET 0080094 DIPHENOXYLATE-ATROPINE Inactive IBUPROFEN 800 MG ORAL TABLET 1 tab every 8 hours as needed 07/12 IBUPROFEN 800 MG ORAL TABLET 049354 IBUPROFEN Inactive PREDNISONE 20 MG ORAL TABLET 2 tablets today, then 1 tablet days 2 through 4 PREDNISONE 20 MG ORAL TABLET 419652 PREDNISONE Inactive GABAPENTIN 300 MG ORAL CAPSULE 1 po q hs for nerve pain GABAPENTIN 300 MG ORAL CAPSULE 102535 GABAPENTIN Inactive TRAMADOL HCL 50 MG ORAL TABLET 1 po tid with ES Tylenol TRAMADOL HCL 50 MG ORAL TABLET 244867 TRAMADOL HCL Inactive PROAIR HFA 108 (90 BASE) MCG/ACT INHALATION AEROSOL SOLUTION 1-2 puffs four times a day as needed PROAIR HFA 108 (90 BASE) MCG/ACT INHALATION AEROSOL SOLUTION ALBUTEROL SULFATE Inactive PREDNISONE 20 MG ORAL TABLET two tabs by mouth today, then one tab by mouth days two and three PREDNISONE 20 MG ORAL TABLET 403348 PREDNISONE Inactive TESSALON PERLES 100 MG ORAL CAPSULE 1-2 tablet by mouth 3 times daily 04/16 TESSALON PERLES 100 MG ORAL CAPSULE 658500 BENZONATATE Inactive PREDNISONE 10 MG ORAL TABLET 1 tablet by mouth daily PREDNISONE 10 MG ORAL TABLET 960160 PREDNISONE Inactive AZITHROMYCIN 250 MG ORAL TABLET 2 po qd x 1 day, then 1 po qd x 4 days 10/16 AZITHROMYCIN 250 MG ORAL TABLET 832860 AZITHROMYCIN Inactive AZITHROMYCIN 250 MG ORAL TABLET 2 po qd x 1 day, then 1 po qd x 4 days 10/21 AZITHROMYCIN 250 MG ORAL TABLET 265960 AZITHROMYCIN Inactive NYSTATIN-TRIAMCINOLONE 584735-0.1 UNIT/GM-% EXTERNAL CREAM Apply to area BID NYSTATIN-TRIAMCINOLONE 146310-6.1 UNIT/GM-% EXTERNAL CREAM 2906313 NYSTATIN-TRIAMCINOLONE Inactive AZITHROMYCIN 250 MG ORAL TABLET 2 po qd x 1 day, then 1 po qd x 4 days 05/07 AZITHROMYCIN 250 MG ORAL TABLET 514400 AZITHROMYCIN Inactive AZITHROMYCIN 250 MG ORAL TABLET 2 po qd x 1 day, then 1 po qd x 4 days 10/13 AZITHROMYCIN 250 MG ORAL TABLET 499416 AZITHROMYCIN Inactive AZITHROMYCIN 250 MG ORAL TABLET 2 po qd x 1 day, then 1 po qd x 4 days 07/12 AZITHROMYCIN 250 MG ORAL TABLET 952479 AZITHROMYCIN Inactive PREDNISONE 20 MG ORAL TABLET 2 tabs daily for 3 days, 1 tab daily for 3 days, 1/2 tab daily for 2 days PREDNISONE 20 MG ORAL TABLET 915438 PREDNISONE Inactive DOXYCYCLINE HYCLATE 100 MG ORAL CAPSULE 1 cap by mouth BID x10 days DOXYCYCLINE HYCLATE 100 MG ORAL CAPSULE 5264560 DOXYCYCLINE HYCLATE Inactive ZITHROMAX 250 MG ORAL TABLET Take two (2 ) tablets day one, then one (1) tablet a day for four (4) more days ZITHROMAX 250 MG ORAL TABLET 098469 AZITHROMYCIN Inactive Advance Directives Directive Description Start [...] Measured Encounters Code Encounter Date Provider Facility CPT-81508 Level 3 Est. Patient 15:59:25 PROFESSIONAL APPLICATION DESIGNER Piotr Daley DO [facility] CPT-62901 Level 3 Est. Patient 12:33:59 PROFESSIONAL APPLICATION DESIGNER Piotr W Edi [facility] CPT-54104 Level 3 Est. Patient 15:56:17 PROFESSIONAL APPLICATION DESIGNER Piotr Daley [facility] CPT-94276 Level 3 Est. Patient 10:34:54 PROFESSIONAL APPLICATION DESIGNER Piotr Katie Daley [facility] CPT-74049 Level 3 Est. Patient 17:10:19 CDT Nella Harris APRN [facility] CPT-44702 Level 3 Est. Patient 10:48:17 PROFESSIONAL APPLICATION DESIGNER Matthew Rangel MD [facility] CPT-98089 Level 4 Est. Patient 17:15:07 PROFESSIONAL APPLICATION DESIGNER Piotr Wilson Edi [facility] CPT-37321 Level 3 Est. Patient 12:46:13 PROFESSIONAL APPLICATION DESIGNER Piotr Wilson Edi [facility] CPT-50049 Level 3 Est. Patient 15:14:31 PROFESSIONAL APPLICATION DESIGNER Piotr Wilson Edi [facility] CPT-26899 Level 3 Est. Patient 09:20:13 PROFESSIONAL APPLICATION DESIGNER Piotr Wilson Dei [facility] CPT-05395 Level 3 Est. Patient 09:49:40 CDT Piotr Wilson Edi [facility] CPT-94472 Level 3 Est. Patient 16:28:11 CDT Piotr Wilson Edi [facility] CPT-00513 Level 3 Est. Patient 12:41:58 PROFESSIONAL APPLICATION DESIGNER Piotr Daley [facility] CPT-19687 Level 3 Est. Patient 09:21:24 CDT Piotr Wilson Edi [facility] CPT-82048 Level 3 Est. Patient 09:21:11 CDT Piotr Wilson Edi [facility] CPT-56390 Level 3 Est. Patient 11:16:29 PROFESSIONAL APPLICATION DESIGNER Piotr Daley [facility] CPT-05423 Level 3 Est. Patient 18:40:19 PROFESSIONAL APPLICATION DESIGNER Piotr Daley [facility] CPT-95754 Level 3 Est. Patient 19:30:50 CDT Piotr [facility] CPT-66905 Level 3 Est. Patient 22:06:44 CDT Katrina Rinaldi MD [facility] CPT-17969 Level 3 Est. Patient 14:20:00 CDT Piotr Daley [facility] CPT-30748 Level 3 Est. Patient 14:15:22 PROFESSIONAL APPLICATION DESIGNER Piotr Daley [facility] CPT-59379 Level 3 Est. Patient 20:19:57 PROFESSIONAL APPLICATION DESIGNER Piotr Daley [facility] CPT-94327 Level 3 Est. Patient 16:44:32 CDT Piotr Daley [facility] CPT-60518 Level 3 Est. Patient 08:48:46 PROFESSIONAL APPLICATION DESIGNER Piotr Daley [facility] CPT-31328 Level 3 Est. Patient 21:01:21 CDT Piotr [facility] Procedures Code Procedure Name Date Entry Date Standard Description CPT-96579 Sacroiliac jt < 3V - XRAY USE ONLY 16:45:19 PROFESSIONAL APPLICATION DESIGNER 05/09 CPT-03281 LS spine comp w obliques - XRAY USE ONLY 14:52:26 PROFESSIONAL APPLICATION DESIGNER CPT-92670 Chest, 2 views 12:55:58 PROFESSIONAL APPLICATION DESIGNER CPT-G0439 [facility] Annual Wellness Exam 10:34:52 PROFESSIONAL APPLICATION DESIGNER CPT-01447 BMP - LAB USE ONLY 17:19:11 PROFESSIONAL APPLICATION DESIGNER CPT-36927 PT/INR - LAB USE ONLY 17:19:10 PROFESSIONAL APPLICATION DESIGNER CPT-13475 Venipuncture Draw Fee 17:19:10 PROFESSIONAL APPLICATION DESIGNER CPT-76789 PT/INR - LAB USE ONLY 08:12:25 PROFESSIONAL APPLICATION DESIGNER CPT-95121 Venipuncture Draw Fee 08:12:24 PROFESSIONAL APPLICATION DESIGNER CPT-73804 Venipuncture Draw Fee 11:31:07 PROFESSIONAL APPLICATION DESIGNER CPT-09805 TPSA - LAB USE ONLY 11:31:07 PROFESSIONAL APPLICATION DESIGNER CPT-57832 PT/INR - LAB USE ONLY 11:31:07 PROFESSIONAL APPLICATION DESIGNER CPT-G0439 Subsequent Annual Wellness Exam 09:59:29 PROFESSIONAL APPLICATION DESIGNER CPT-40273 Creatinine - LAB USE ONLY 14:37:55 PROFESSIONAL APPLICATION DESIGNER CPT-81528 PT/INR - LAB USE ONLY 14:37:55 PROFESSIONAL APPLICATION DESIGNER CPT-34243 Venipuncture Draw Fee 14:37:55 PROFESSIONAL APPLICATION DESIGNER CPT-30788 LS spine comp w obliques - XRAY USE ONLY 12:59:25 PROFESSIONAL APPLICATION DESIGNER CPT-08419 PT/INR - LAB USE ONLY 13:49:20 CDT CPT-45479 Venipuncture Draw Fee 13:49:19 CDT CPT-80442 PT/INR - LAB USE ONLY 15:48:49 CDT CPT-98274 Venipuncture Draw Fee 15:48:49 CDT CPT-66838 Venipuncture Draw Fee 11:31:59 CDT CPT-65453 PT/INR - LAB USE ONLY 11:31:59 CDT CPT-59771 Venipuncture Draw Fee 13:29:15 CDT CPT-89883 Thoracolumbar AP/Lat 15:19:19 PROFESSIONAL APPLICATION DESIGNER CPT-G0438 Initial Annual Wellness Exam 12:18:54 PROFESSIONAL APPLICATION DESIGNER CPT-39703 Knee 3V 09:57:38 CDT CPT-OV Office Visit 15:45:01 PROFESSIONAL APPLICATION DESIGNER CPT-45739 Abd compl w upright 17:10:25 CDT
--- OUTSIDE RECORDS SUMMARY | 2018-07-18 09:17 | XMS REPORT | Clinical Summary ---
Author Author Admin, [facility] Organization [place] Address Unknown Phone Unavailable Allergies, Adverse Reactions, [...] Coronary atherosclerosis of unspecified type of vessel, united [place] or graft Back pain, thoracic region, left [...] Knee pain, left ICD-719.46 Inactive Sirisha Chen [employer] Actinic keratoses ICD-702.0 Inactive Sirisha Chen [employer] Back pain, thoracic region, left ICD-724.1 Inactive Piotr Daley DO Thoracic back pain ICD-724.5 Inactive Sirisha Chen [employer] Back pain lumbar ICD-724.2 Inactive Sirisha Chen [employer] Insect bite ICD-919.4 Inactive Sirisha Chen [employer] Pruritus ICD-698.9 Inactive Sirisha Chen [employer] 04/09 Bronchitis-Acute ICD-466.0 Inactive Sirisha Chen [employer] Dyspnea ICD-786.09 Inactive Sirisha Chen [employer] 05/09 Medication List Medication Instructions Start Date Stop Date Generic Name NDC Status Provider Patient Instruction NYSTATIN 176045 UNIT/GM EXTERNAL CREAM Apply to rash 2-3 times a day and may repeat as needed NYSTATIN 08330527820 Active Sirisha Chen [employer] Active TRIAMCINOLONE ACETONIDE 0.1 % EXTERNAL CREAM apply bid sparingly to rash 2017 TRIAMCINOLONE ACETONIDE 52421789417 Active Sirisha Chen [employer] Active WARFARIN SODIUM 4 MG ORAL TABLET 1 tablet by mouth daily WARFARIN SODIUM 34648941183 Active Sirisha Chen [employer] Active MELOXICAM 15 MG ORAL TABLET 1 po q day for pain with food MELOXICAM 25051547835 Active Piotr Daley DO Active PREDNISONE 10 MG ORAL TABLET 1 tablet by mouth daily PREDNISONE 07559711074 No Longer Active Emelyn Norris Active TESSALON PERLES 100 MG ORAL CAPSULE 1-2 tablet by mouth 3 times daily 04/16 BENZONATATE 44354296520 No Longer Active Emelyn Norris Active PREDNISONE 20 MG ORAL TABLET two tabs by mouth today, then one tab by mouth days two and three PREDNISONE 17281735869 No Longer Active Piotr Daley DO Active CYCLOBENZAPRINE HCL 10 MG ORAL TABLET 1 tablet by mouth three times daily as needed for muscle spasm/pain CYCLOBENZAPRINE HCL 25173110539 Active Sirisha Chen LPN Active ZITHROMAX 250 MG ORAL TABLET Take two (2 ) tablets day one, then one (1) tablet a day for four (4) more days AZITHROMYCIN 82624577657 No Longer Active Piotr Daley DO Active PROAIR HFA 108 (90 BASE) MCG/ACT INHALATION AEROSOL SOLUTION 1-2 puffs four times a day as needed ALBUTEROL SULFATE 12025071511 No Longer Active Emelyn Norris Active DOXYCYCLINE HYCLATE 100 MG ORAL CAPSULE 1 cap by mouth BID x10 days DOXYCYCLINE HYCLATE 19974266262 No Longer Active Nella Harris APRN Active PREDNISONE 20 MG ORAL TABLET 2 tabs daily for 3 days, 1 tab daily for 3 days, 1/2 tab daily for 2 days PREDNISONE 64935017329 No Longer Active Matthew Rangel MD Active TRAMADOL HCL 50 MG ORAL TABLET 1 po tid with ES Tylenol TRAMADOL HCL 56428040002 No Longer Active Matthew Rangel MD Active GABAPENTIN 300 MG ORAL CAPSULE 1 po q hs for nerve pain GABAPENTIN 19960197182 No Longer Active Matthew Rangel MD Active PREDNISONE 20 MG ORAL TABLET 2 tablets today, then 1 tablet days 2 through 4 PREDNISONE 78346629306 No Longer Active Piotr Daley DO Active AZITHROMYCIN 250 MG ORAL TABLET 2 po qd x 1 day, then 1 po qd x 4 days 07/12 AZITHROMYCIN 43063583002 No Longer Active Piotr W Edi DO Active IBUPROFEN 800 MG ORAL TABLET 1 tab every 8 hours as needed 07/12 IBUPROFEN 68742884031 No Longer Active Piotr Daley DO Active LOMOTIL 2.5-0.025 MG ORAL TABLET 1 to 2 four times a day as needed for diarrhea DIPHENOXYLATE-ATROPINE 27057669457 No Longer Active Piotr Daley DO Active WARFARIN SODIUM 4 MG ORAL TABLET 1 tab every evening WARFARIN SODIUM 28122955496 No Longer Active Piotr Daley DO Active PREDNISONE 20 MG ORAL TABLET 1 tablet twice daily for 2 days, then 1 tablet once daily for 2 days PREDNISONE 41752615706 No Longer Active Piotr Daley DO Active PROMETHAZINE HCL 25 MG ORAL TABLET 1 four times a day as needed for nausea/ vomiting PROMETHAZINE HCL 10725508309 No Longer Active Piotr Daley DO Active TUSSIONEX PENNKINETIC ER 10-8 MG/5ML ORAL SUSPENSION EXTENDED RELEASE 5ml po q12hr PRN Cough HYDROCOD POLST-CHLORPHEN POLST 81193392779 No Longer Active Piotr Daley DO Active AZITHROMYCIN 250 MG ORAL TABLET 2 po qd x 1 day, then 1 po qd x 4 days 10/13 AZITHROMYCIN 45348967385 No Longer Active Piotr Daley DO Active AZITHROMYCIN 250 MG ORAL TABLET 2 po qd x 1 day, then 1 po qd x 4 days 05/07 AZITHROMYCIN 14439603231 No Longer Active Piotr Daely DO Active LISINOPRIL-HYDROCHLOROTHIAZIDE 10-12.5 MG ORAL TABLET 1 tab by mouth daily LISINOPRIL-HYDROCHLOROTHIAZIDE 52121172318 Active Piotr Daley DO Active LISINOPRIL 10 MG ORAL TABLET 1/2-1 tab po every other day LISINOPRIL 36943386827 No Longer Active Piotr Daley DO Active VENTOLIN HFA 108 (90 Base) MCG/ACT INHALATION AEROSOL SOLUTION 2 puffs four times a day PRN cough ALBUTEROL SULFATE 43500321758 No Longer Active Piotr Daley DO Active NYSTATIN-TRIAMCINOLONE 859407-9.1 UNIT/GM-% EXTERNAL CREAM Apply to area BID NYSTATIN-TRIAMCINOLONE 65883165259 No Longer Active Alena Chavira [employer] Active PHISOHEX 3 % LIQD Use Directed HEXACHLOROPHENE 14970007615 No Longer Active Sandra [place] Active AZITHROMYCIN 250 MG ORAL TABLET 2 po qd x 1 day, then 1 po qd x 4 days 10/21 AZITHROMYCIN 72192589923 No Longer Active Katrina Rinaldi MD PhD Active AZITHROMYCIN 250 MG ORAL TABLET 2 po qd x 1 day, then 1 po qd x 4 days 10/16 AZITHROMYCIN 78530017825 No Longer Active Piotr Daley DO Active AZITHROMYCIN 500 MG INTRAVENOUS SOLUTION RECONSTITUTED 1 po q day AZITHROMYCIN 66281155995 No Longer Active Piotr Daley DO Active NYSTATIN-TRIAMCINOLONE 953977-5.1 UNIT/GM-% EXTERNAL CREAM apply bid NYSTATIN-TRIAMCINOLONE 12265551885 No Longer Active Piotr Daley DO Active IBUPROFEN 800 MG ORAL TABLET 1 po q 8 hours prn pain sparinly IBUPROFEN 91692177610 No Longer Active Piotr Daley DO Active VITAMIN D3 5000 UNIT ORAL CAPSULE 1 po daily CHOLECALCIFEROL 13955942206 Active Piotr Daley DO Active IBUPROFEN 800 MG ORAL TABLET 1 po q 8 hours prn pain sparinly IBUPROFEN 800 MG ORAL TABLET 641860 IBUPROFEN Inactive NYSTATIN-TRIAMCINOLONE 890459-2.1 UNIT/GM-% EXTERNAL CREAM apply bid NYSTATIN-TRIAMCINOLONE 067936-0.1 UNIT/GM-% EXTERNAL CREAM 7630113 NYSTATIN-TRIAMCINOLONE Inactive AZITHROMYCIN 500 MG INTRAVENOUS SOLUTION RECONSTITUTED 1 po q day AZITHROMYCIN 500 MG INTRAVENOUS SOLUTION RECONSTITUTED 12362114403 AZITHROMYCIN Inactive VENTOLIN HFA 108 (90 Base) MCG/ACT INHALATION AEROSOL SOLUTION 2 puffs four times a day PRN cough VENTOLIN HFA 108 (90 Base) MCG/ ACT INHALATION AEROSOL SOLUTION ALBUTEROL SULFATE Inactive LISINOPRIL 10 MG ORAL TABLET 1/2-1 tab po every other day LISINOPRIL 10 MG ORAL TABLET 866690 LISINOPRIL Inactive TUSSIONEX PENNKINETIC ER 10-8 MG/5ML ORAL SUSPENSION EXTENDED RELEASE 5ml po q12hr PRN Cough TUSSIONEX PENNKINETIC ER 10-8 MG/5ML ORAL SUSPENSION EXTENDED RELEASE HYDROCOD POLST-CHLORPHEN POLST Inactive PROMETHAZINE HCL 25 MG ORAL TABLET 1 four times a day as needed for nausea/ vomiting PROMETHAZINE HCL 25 MG ORAL TABLET 272611 PROMETHAZINE HCL Inactive PREDNISONE 20 MG ORAL TABLET 1 tablet twice daily for 2 days, then 1 tablet once daily for 2 days PREDNISONE 20 MG ORAL TABLET 281172 PREDNISONE Inactive WARFARIN SODIUM 4 MG ORAL TABLET 1 tab every evening WARFARIN SODIUM 4 MG ORAL TABLET 525679 WARFARIN SODIUM Inactive LOMOTIL 2.5-0.025 MG ORAL TABLET 1 to 2 four times a day as needed for diarrhea LOMOTIL 2.5-0.025 MG ORAL TABLET 4387165 DIPHENOXYLATE-ATROPINE Inactive IBUPROFEN 800 MG ORAL TABLET 1 tab every 8 hours as needed 07/12 IBUPROFEN 800 MG ORAL TABLET 123675 IBUPROFEN Inactive PREDNISONE 20 MG ORAL TABLET 2 tablets today, then 1 tablet days 2 through 4 PREDNISONE 20 MG ORAL TABLET 160959 PREDNISONE Inactive GABAPENTIN 300 MG ORAL CAPSULE 1 po q hs for nerve pain GABAPENTIN 300 MG ORAL CAPSULE 299431 GABAPENTIN Inactive TRAMADOL HCL 50 MG ORAL TABLET 1 po tid with ES Tylenol TRAMADOL HCL 50 MG ORAL TABLET 567704 TRAMADOL HCL Inactive PROAIR HFA 108 (90 BASE) MCG/ACT INHALATION AEROSOL SOLUTION 1-2 puffs four times a day as needed PROAIR HFA 108 (90 BASE) MCG/ACT INHALATION AEROSOL SOLUTION ALBUTEROL SULFATE Inactive PREDNISONE 20 MG ORAL TABLET two tabs by mouth today, then one tab by mouth days two and three PREDNISONE 20 MG ORAL TABLET 670996 PREDNISONE Inactive TESSALON PERLES 100 MG ORAL CAPSULE 1-2 tablet by mouth 3 times daily 04/16 TESSALON PERLES 100 MG ORAL CAPSULE 914594 BENZONATATE Inactive PREDNISONE 10 MG ORAL TABLET 1 tablet by mouth daily PREDNISONE 10 MG ORAL TABLET 434916 PREDNISONE Inactive AZITHROMYCIN 250 MG ORAL TABLET 2 po qd x 1 day, then 1 po qd x 4 days 10/16 AZITHROMYCIN 250 MG ORAL TABLET 032874 AZITHROMYCIN Inactive AZITHROMYCIN 250 MG ORAL TABLET 2 po qd x 1 day, then 1 po qd x 4 days 10/21 AZITHROMYCIN 250 MG ORAL TABLET 286487 AZITHROMYCIN Inactive NYSTATIN-TRIAMCINOLONE 942433-8.1 UNIT/GM-% EXTERNAL CREAM Apply to area BID NYSTATIN-TRIAMCINOLONE 698414-6.1 UNIT/GM-% EXTERNAL CREAM 6118330 NYSTATIN-TRIAMCINOLONE Inactive AZITHROMYCIN 250 MG ORAL TABLET 2 po qd x 1 day, then 1 po qd x 4 days 05/07 AZITHROMYCIN 250 MG ORAL TABLET 174176 AZITHROMYCIN Inactive AZITHROMYCIN 250 MG ORAL TABLET 2 po qd x 1 day, then 1 po qd x 4 days 10/13 AZITHROMYCIN 250 MG ORAL TABLET 726969 AZITHROMYCIN Inactive AZITHROMYCIN 250 MG ORAL TABLET 2 po qd x 1 day, then 1 po qd x 4 days 07/12 AZITHROMYCIN 250 MG ORAL TABLET 558394 AZITHROMYCIN Inactive PREDNISONE 20 MG ORAL TABLET 2 tabs daily for 3 days, 1 tab daily for 3 days, 1/2 tab daily for 2 days PREDNISONE 20 MG ORAL TABLET 570213 PREDNISONE Inactive DOXYCYCLINE HYCLATE 100 MG ORAL CAPSULE 1 cap by mouth BID x10 days DOXYCYCLINE HYCLATE 100 MG ORAL CAPSULE 4721415 DOXYCYCLINE HYCLATE Inactive ZITHROMAX 250 MG ORAL TABLET Take two (2 ) tablets day one, then one (1) tablet a day for four (4) more days ZITHROMAX 250 MG ORAL TABLET 829304 AZITHROMYCIN Inactive Advance Directives Directive Description Start [...] Measured Encounters Code Encounter Date Provider Facility CPT-29785 Level 3 Est. Patient 15:59:25 COLLEGE DEAN Piotr Daley DO [facility] CPT-97467 Level 3 Est. Patient 12:33:59 COLLEGE DEAN Piotr W Edi [facility] CPT-17775 Level 3 Est. Patient 15:56:17 COL[place] DEAN Piotr Daley [facility] CPT-22123 Level 3 Est. Patient 10:34:54 [place] Piotr Katie Daley [facility] CPT-85760 Level 3 Est. Patient 17:10:19 CDT Nella Harris APRN [facility] CPT-37649 Level 3 Est. Patient 10:48:17 COL[place] DEAN Matthew Rangel MD [facility] CPT-54555 Level 4 Est. Patient 17:15:07 COL[place] DEAN Piotr Wilson Eid [facility] CPT-41313 Level 3 Est. Patient 12:46:13 COLLEGE DEAN Piotr Wilson Edi [facility] CPT-72362 Level 3 Est. Patient 15:14:31 COLLEGE DEAN Piotr Wilson Edi [facility] CPT-85078 Level 3 Est. Patient 09:20:13 COLLEGE DEAN Piotr Wilson Edi [facility] CPT-37454 Level 3 Est. Patient 09:49:40 CDT Piotr Wilson Edi [facility] CPT-21190 Level 3 Est. Patient 16:28:11 CDT Piotr Wilson Edi [facility] CPT-37853 Level 3 Est. Patient 12:41:58 COLLEGE DEAN Piotr Daley [facility] CPT-96061 Level 3 Est. Patient 09:21:24 CDT Piotr Wilson Edi [facility] CPT-71888 Level 3 Est. Patient 09:21:11 CDT Piotr Wilson Edi [facility] CPT-22658 Level 3 Est. Patient 11:16:29 COLLEGE DEAN Piotr Daley [facility] CPT-65376 Level 3 Est. Patient 18:40:19 COL[place]GE DEAN Piotr Daley [facility] CPT-60280 Level 3 Est. Patient 19:30:50 CDT Piotr Wilson [facility] CPT-23022 Level 3 Est. Patient 22:06:44 CDT Katrina Rinaldi MD [facility] CPT-86875 Level 3 Est. Patient 14:20:00 CDT Piotr Daley [facility] CPT-39497 Level 3 Est. Patient 14:15:22 COLLEGE DEAN Piotr Daley [facility] CPT-93099 Level 3 Est. Patient 20:19:57 COLLEGE DEAN Piotr Daley [facility] CPT-98939 Level 3 Est. Patient 16:44:32 CDT Piotr Daley [facility] CPT-72749 Level 3 Est. Patient 08:48:46 COLLEGE DEAN Piotr Daley [facility] CPT-16637 Level 3 Est. Patient 21:01:21 CDT Piotr Wilson [facility] Procedures Code Procedure Name Date Entry Date Standard Description CPT-39535 Sacroiliac jt < 3V - XRAY USE ONLY 16:45:19 COLLEGE DEAN 05/09 CPT-40339 LS spine comp w obliques - XRAY USE ONLY 14:52:26 COLLEGE DEAN CPT-85903 Chest, 2 views 12:55:58 COLLEGE DEAN CPT-G0439 [facility] Annual Wellness Exam 10:34:52 COLLEGE DEAN CPT-64147 BMP - LAB USE ONLY 17:19:11 COLLEGE DEAN CPT-42729 PT/INR - LAB USE ONLY 17:19:10 COLLEGE DEAN CPT-86185 Venipuncture Draw Fee 17:19:10 COLLEGE DEAN CPT-64920 PT/INR - LAB USE ONLY 08:12:25 COLLEGE DEAN CPT-51910 Venipuncture Draw Fee 08:12:24 COLLEGE DEAN CPT-62806 Venipuncture Draw Fee 11:31:07 COLLEGE DEAN CPT-60052 TPSA - LAB USE ONLY 11:31:07 COLLEGE DEAN CPT-95665 PT/INR - LAB USE ONLY 11:31:07 COLLEGE DEAN CPT-G0439 Subsequent Annual Wellness Exam 09:59:29 COLLEGE DEAN CPT-25883 Creatinine - LAB USE ONLY 14:37:55 COLLEGE DEAN CPT-56572 PT/INR - LAB USE ONLY 14:37:55 COLLEGE DEAN CPT-67520 Venipuncture Draw Fee 14:37:55 COLLEGE DEAN CPT-36486 LS spine comp w obliques - XRAY USE ONLY 12:59:25 COLLEGE DEAN CPT-21374 PT/INR - LAB USE ONLY 13:49:20 CDT CPT-89194 Venipuncture Draw Fee 13:49:19 CDT CPT-79674 PT/INR - LAB USE ONLY 15:48:49 CDT CPT-55371 Venipuncture Draw Fee 15:48:49 CDT CPT-93478 Venipuncture Draw Fee 11:31:59 CDT CPT-21181 PT/INR - LAB USE ONLY 11:31:59 CDT CPT-81375 Venipuncture Draw Fee 13:29:15 CDT CPT-19728 Thoracolumbar AP/Lat 15:19:19 COLLEGE DEAN CPT-G0438 Initial Annual Wellness Exam 12:18:54 COLLEGE DEAN CPT-27597 Knee 3V 09:57:38 CDT CPT-OV Office Visit 15:45:01 COLLEGE DEAN CPT-90128 Abd compl w upright 17:10:25 CDT
--- OUTSIDE RECORDS SUMMARY | 2018-07-18 09:18 | XMS REPORT | Clinical Summary ---
Author Author Admin, Bita Organization [employer] Address Unknown Phone Unavailable Allergies, Adverse Reactions, [...] of unspecified type of vessel, [place] or graft Back pain, thoracic region, [...] a health care facility Bronchitis-Acute 466.0 Resolved Eemlyn Rodriguezibbita Acute bronchitis Dyspnea 786.09 Resolved Emelyn [...] Knee pain, left ICD-719.46 Inactive Sirisha Chen BOARD FINISHER Actinic keratoses ICD-702.0 Inactive Sirisha Chen BOARD FINISHER Back pain, thoracic region, left ICD-724.1 Inactive Piotr Daley DO Thoracic back pain ICD-724.5 Inactive Sirisha Chen BOARD FINISHER Back pain lumbar ICD-724.2 Inactive Sirisha Chen BOARD FINISHER Insect bite ICD-919.4 Inactive Sirisha Chen BOARD FINISHER Pruritus ICD-698.9 Inactive Sirisha Chen BOARD FINISHER 04/09 Bronchitis-Acute ICD-466.0 Inactive Sirisha Chen BOARD FINISHER Dyspnea ICD-786.09 Inactive Sirisha Chen BOARD FINISHER 05/09 Medication List Medication Instructions Start Date Stop Date Generic Name NDC Status Provider Patient Instruction WARFARIN SODIUM 4 MG ORAL TABLET 1 tablet by mouth daily WARFARIN SODIUM 44622284696 Active Sirisha Chen BOARD FINISHER Active MELOXICAM 15 MG ORAL TABLET 1 po q day for pain with food MELOXICAM 34264936589 Active Piotr Daley DO Active PREDNISONE 10 MG ORAL TABLET 1 tablet by mouth daily PREDNISONE 61915228626 No Longer Active Emelyn Norris Active TESSALON PERLES 100 MG ORAL CAPSULE 1-2 tablet by mouth 3 times daily 04/16 BENZONATATE 11103250888 No Longer Active Emelyn Norris Active PREDNISONE 20 MG ORAL TABLET two tabs by mouth today, then one tab by mouth days two and three PREDNISONE 44705036149 No Longer Active Piotr Daley DO Active CYCLOBENZAPRINE HCL 10 MG ORAL TABLET 1 tablet by mouth three times daily as needed for muscle spasm/pain CYCLOBENZAPRINE HCL 51550375762 Active Sirisha Chen LPN Active ZITHROMAX 250 MG ORAL TABLET Take two (2 ) tablets day one, then one (1) tablet a day for four (4) more days AZITHROMYCIN 12328709136 No Longer Active Piotr Daley DO Active PROAIR HFA 108 (90 BASE) MCG/ACT INHALATION AEROSOL SOLUTION 1-2 puffs four times a day as needed ALBUTEROL SULFATE 56220570958 No Longer Active Emelyn Norris Active DOXYCYCLINE HYCLATE 100 MG ORAL CAPSULE 1 cap by mouth BID x10 days DOXYCYCLINE HYCLATE 15888979202 No Longer Active Nella Harris APRN Active PREDNISONE 20 MG ORAL TABLET 2 tabs daily for 3 days, 1 tab daily for 3 days, 1/2 tab daily for 2 days PREDNISONE 10641581426 No Longer Active Matthew Rangel MD Active TRAMADOL HCL 50 MG ORAL TABLET 1 po tid with ES Tylenol TRAMADOL HCL 13984711482 No Longer Active Matthew Rangel MD Active GABAPENTIN 300 MG ORAL CAPSULE 1 po q hs for nerve pain GABAPENTIN 56174930324 No Longer Active Matthew Rangel MD Active PREDNISONE 20 MG ORAL TABLET 2 tablets today, then 1 tablet days 2 through 4 PREDNISONE 93436202982 No Longer Active Piotr Daley DO Active AZITHROMYCIN 250 MG ORAL TABLET 2 po qd x 1 day, then 1 po qd x 4 days 07/12 AZITHROMYCIN 54388688369 No Longer Active Piotr Daley DO Active IBUPROFEN 800 MG ORAL TABLET 1 tab every 8 hours as needed 07/12 IBUPROFEN 12111797334 No Longer Active Piotr Daley DO Active LOMOTIL 2.5-0.025 MG ORAL TABLET 1 to 2 four times a day as needed for diarrhea DIPHENOXYLATE-ATROPINE 04680215902 No Longer Active Ipotr W Edi DO Active WARFARIN SODIUM 4 MG ORAL TABLET 1 tab every evening WARFARIN SODIUM 06362536328 No Longer Active Piotr Daley DO Active PREDNISONE 20 MG ORAL TABLET 1 tablet twice daily for 2 days, then 1 tablet once daily for 2 days PREDNISONE 76798343623 No Longer Active Piotr Daley DO Active PROMETHAZINE HCL 25 MG ORAL TABLET 1 four times a day as needed for nausea/ vomiting PROMETHAZINE HCL 99837103612 No Longer Active Piotr Daley DO Active TUSSIONEX PENNKINETIC ER 10-8 MG/5ML ORAL SUSPENSION EXTENDED RELEASE 5ml po q12hr PRN Cough HYDROCOD POLST-CHLORPHEN POLST 74289999494 No Longer Active Piotr Daley DO Active AZITHROMYCIN 250 MG ORAL TABLET 2 po qd x 1 day, then 1 po qd x 4 days 10/13 AZITHROMYCIN 28074016864 No Longer Active Piotr Daley DO Active AZITHROMYCIN 250 MG ORAL TABLET 2 po qd x 1 day, then 1 po qd x 4 days 05/07 AZITHROMYCIN 02644028482 No Longer Active Piotr Daley DO Active LISINOPRIL-HYDROCHLOROTHIAZIDE 10-12.5 MG ORAL TABLET 1 tab by mouth daily LISINOPRIL-HYDROCHLOROTHIAZIDE 42091959673 Active Piotr Daley DO Active LISINOPRIL 10 MG ORAL TABLET 1/2-1 tab po every other day LISINOPRIL 11622941709 No Longer Active Piotr Daley DO Active VENTOLIN HFA 108 (90 Base) MCG/ACT INHALATION AEROSOL SOLUTION 2 puffs four times a day PRN cough ALBUTEROL SULFATE 14633554005 No Longer Active Piotr Daley DO Active NYSTATIN-TRIAMCINOLONE 475876-7.1 UNIT/GM-% EXTERNAL CREAM Apply to area BID NYSTATIN-TRIAMCINOLONE 58878018126 No Longer Active Alena Chavira BOARD FINISHER Active PHISOHEX 3 % LIQD Use Directed HEXACHLOROPHENE 08255287287 No Longer Active Sandra [place] Active AZITHROMYCIN 250 MG ORAL TABLET 2 po qd x 1 day, then 1 po qd x 4 days 10/21 AZITHROMYCIN 16289131548 No Longer Active Katrina Rinaldi MD PhD Active AZITHROMYCIN 250 MG ORAL TABLET 2 po qd x 1 day, then 1 po qd x 4 days 10/16 AZITHROMYCIN 82260783956 No Longer Active Piotr Daley DO Active AZITHROMYCIN 500 MG INTRAVENOUS SOLUTION RECONSTITUTED 1 po q day AZITHROMYCIN 91670976781 No Longer Active Piotr Daley DO Active NYSTATIN-TRIAMCINOLONE 555307-9.1 UNIT/GM-% EXTERNAL CREAM apply bid NYSTATIN-TRIAMCINOLONE 75570240450 No Longer Active Piotr Daley DO Active IBUPROFEN 800 MG ORAL TABLET 1 po q 8 hours prn pain sparinly IBUPROFEN 82095935382 No Longer Active Piotr Daley DO Active VITAMIN D3 5000 UNIT ORAL CAPSULE 1 po daily CHOLECALCIFEROL 54772601037 Active Piotr Daley DO Active IBUPROFEN 800 MG ORAL TABLET 1 po q 8 hours prn pain sparinly IBUPROFEN 800 MG ORAL TABLET 085296 IBUPROFEN Inactive NYSTATIN-TRIAMCINOLONE 413938-3.1 UNIT/GM-% EXTERNAL CREAM apply bid NYSTATIN-TRIAMCINOLONE 797458-6.1 UNIT/GM-% EXTERNAL CREAM 7997651 NYSTATIN-TRIAMCINOLONE Inactive AZITHROMYCIN 500 MG INTRAVENOUS SOLUTION RECONSTITUTED 1 po q day AZITHROMYCIN 500 MG INTRAVENOUS SOLUTION RECONSTITUTED 76062594459 AZITHROMYCIN Inactive VENTOLIN HFA 108 (90 Base) MCG/ACT INHALATION AEROSOL SOLUTION 2 puffs four times a day PRN cough VENTOLIN HFA 108 (90 Base) MCG/ ACT INHALATION AEROSOL SOLUTION ALBUTEROL SULFATE Inactive LISINOPRIL 10 MG ORAL TABLET 1/2-1 tab po every other day LISINOPRIL 10 MG ORAL TABLET 787802 LISINOPRIL Inactive TUSSIONEX PENNKINETIC ER 10-8 MG/5ML ORAL SUSPENSION EXTENDED RELEASE 5ml po q12hr PRN Cough TUSSIONEX PENNKINETIC ER 10-8 MG/5ML ORAL SUSPENSION EXTENDED RELEASE HYDROCOD POLST-CHLORPHEN POLST Inactive PROMETHAZINE HCL 25 MG ORAL TABLET 1 four times a day as needed for nausea/ vomiting PROMETHAZINE HCL 25 MG ORAL TABLET 721908 PROMETHAZINE HCL Inactive PREDNISONE 20 MG ORAL TABLET 1 tablet twice daily for 2 days, then 1 tablet once daily for 2 days PREDNISONE 20 MG ORAL TABLET 397470 PREDNISONE Inactive WARFARIN SODIUM 4 MG ORAL TABLET 1 tab every evening WARFARIN SODIUM 4 MG ORAL TABLET 219566 WARFARIN SODIUM Inactive LOMOTIL 2.5-0.025 MG ORAL TABLET 1 to 2 four times a day as needed for diarrhea LOMOTIL 2.5-0.025 MG ORAL TABLET 0940360 DIPHENOXYLATE-ATROPINE Inactive IBUPROFEN 800 MG ORAL TABLET 1 tab every 8 hours as needed 07/12 IBUPROFEN 800 MG ORAL TABLET 085335 IBUPROFEN Inactive PREDNISONE 20 MG ORAL TABLET 2 tablets today, then 1 tablet days 2 through 4 PREDNISONE 20 MG ORAL TABLET 667574 PREDNISONE Inactive GABAPENTIN 300 MG ORAL CAPSULE 1 po q hs for nerve pain GABAPENTIN 300 MG ORAL CAPSULE 282872 GABAPENTIN Inactive TRAMADOL HCL 50 MG ORAL TABLET 1 po tid with ES Tylenol TRAMADOL HCL 50 MG ORAL TABLET 001318 TRAMADOL HCL Inactive PROAIR HFA 108 (90 BASE) MCG/ACT INHALATION AEROSOL SOLUTION 1-2 puffs four times a day as needed PROAIR HFA 108 (90 BASE) MCG/ACT INHALATION AEROSOL SOLUTION ALBUTEROL SULFATE Inactive PREDNISONE 20 MG ORAL TABLET two tabs by mouth today, then one tab by mouth days two and three PREDNISONE 20 MG ORAL TABLET 150907 PREDNISONE Inactive TESSALON PERLES 100 MG ORAL CAPSULE 1-2 tablet by mouth 3 times daily 04/16 TESSALON PERLES 100 MG ORAL CAPSULE 104487 BENZONATATE Inactive PREDNISONE 10 MG ORAL TABLET 1 tablet by mouth daily PREDNISONE 10 MG ORAL TABLET 446372 PREDNISONE Inactive AZITHROMYCIN 250 MG ORAL TABLET 2 po qd x 1 day, then 1 po qd x 4 days 10/16 AZITHROMYCIN 250 MG ORAL TABLET 816841 AZITHROMYCIN Inactive AZITHROMYCIN 250 MG ORAL TABLET 2 po qd x 1 day, then 1 po qd x 4 days 10/21 AZITHROMYCIN 250 MG ORAL TABLET 913614 AZITHROMYCIN Inactive NYSTATIN-TRIAMCINOLONE 834992-5.1 UNIT/GM-% EXTERNAL CREAM Apply to area BID NYSTATIN-TRIAMCINOLONE 811325-4.1 UNIT/GM-% EXTERNAL CREAM 3277363 NYSTATIN-TRIAMCINOLONE Inactive AZITHROMYCIN 250 MG ORAL TABLET 2 po qd x 1 day, then 1 po qd x 4 days 05/07 AZITHROMYCIN 250 MG ORAL TABLET 856830 AZITHROMYCIN Inactive AZITHROMYCIN 250 MG ORAL TABLET 2 po qd x 1 day, then 1 po qd x 4 days 10/13 AZITHROMYCIN 250 MG ORAL TABLET 759166 AZITHROMYCIN Inactive AZITHROMYCIN 250 MG ORAL TABLET 2 po qd x 1 day, then 1 po qd x 4 days 07/12 AZITHROMYCIN 250 MG ORAL TABLET 822379 AZITHROMYCIN Inactive PREDNISONE 20 MG ORAL TABLET 2 tabs daily for 3 days, 1 tab daily for 3 days, 1/2 tab daily for 2 days PREDNISONE 20 MG ORAL TABLET 541626 PREDNISONE Inactive DOXYCYCLINE HYCLATE 100 MG ORAL CAPSULE 1 cap by mouth BID x10 days DOXYCYCLINE HYCLATE 100 MG ORAL CAPSULE 5766835 DOXYCYCLINE HYCLATE Inactive ZITHROMAX 250 MG ORAL TABLET Take two (2 ) tablets day one, then one (1) tablet a day for four (4) more days ZITHROMAX 250 MG ORAL TABLET 568844 AZITHROMYCIN Inactive Advance Directives Directive Description Start [...] Measured Encounters Code Encounter Date Provider Facility CPT-80941 Level 3 Est. Patient 15:59:25 CORPORATE DIRECTOR Piotr Daley [facility] CPT-17277 Level 3 Est. Patient 12:33:59 CORPORATE DIRECTOR Piotr Daley [facility] CPT-27183 Level 3 Est. Patient 15:56:17 CORPORATE DIRECTOR Piotr Daley [facility] CPT-99140 Level 3 Est. Patient 10:34:54 CORPORATE DIRECTOR Piotr Daley [facility] CPT-32939 Level 3 Est. Patient 17:10:19 MALACHI Harris APRN [facility] CPT-74416 Level 3 Est. Patient 10:48:17 CORPORATE DIRECTOR Matthew Rangel MD [facility] CPT-80424 Level 4 Est. Patient 17:15:07 CORPORATE DIRECTOR Piotr Daley [facility] CPT-79431 Level 3 Est. Patient 12:46:13 CORPORATE DIRECTOR Piotr Daley [facility] CPT-09477 Level 3 Est. Patient 15:14:31 CORPORATE DIRECTOR Piotr Daley [facility] CPT-14122 Level 3 Est. Patient 09:20:13 CORPORATE DIRECTOR Piotr Daley [facility] CPT-70190 Level 3 Est. Patient 09:49:40 CDT Piotr Daley [facility] CPT-41180 Level 3 Est. Patient 16:28:11 CDT Piotr Daley [facility] CPT-67283 Level 3 Est. Patient 12:41:58 CORPORATE DIRECTOR Piotr Daley [facility] CPT-79586 Level 3 Est. Patient 09:21:24 CDT Piotr Daley [facility] CPT-88891 Level 3 Est. Patient 09:21:11 CDT Piotr Daley [facility] CPT-57974 Level 3 Est. Patient 11:16:29 CORPORATE DIRECTOR Piotr Daley [facility] CPT-11197 Level 3 Est. Patient 18:40:19 CORPORATE DIRECTOR Piotr Daley [facility] CPT-89763 Level 3 Est. Patient 19:30:50 CDT Piotr Daley [facility] CPT-79497 Level 3 Est. Patient 22:06:44 CDT Katrina Rinaldi MD PhD [facility] CPT-41042 Level 3 Est. Patient 14:20:00 CDT Piotr Daley [facility] CPT-62282 Level 3 Est. Patient 14:15:22 CORPORATE DIRECTOR Piotr Daley [facility] CPT-71891 Level 3 Est. Patient 20:19:57 CORPORATE DIRECTOR Piotr Daley [facility] CPT-98103 Level 3 Est. Patient 16:44:32 CDT Piotr Daley [facility] CPT-15857 Level 3 Est. Patient 08:48:46 CORPORATE DIRECTOR Piotr Daley [facility] CPT-38348 Level 3 Est. Patient 21:01:21 CDT Piotr Daley [facility] Procedures Code Procedure Name Date Entry Date Standard Description CPT-44112 Sacroiliac jt < 3V - XRAY USE ONLY 16:45:19 CORPORATE DIRECTOR 05/09 CPT-45472 LS spine comp w obliques - XRAY USE ONLY 14:52:26 CORPORATE DIRECTOR CPT-96051 Chest, 2 views 12:55:58 CORPORATE DIRECTOR CPT-G0439 Subsequent Annual Wellness Exam 10:34:52 CORPORATE DIRECTOR CPT-41364 BMP - LAB USE ONLY 17:19:11 CORPORATE DIRECTOR CPT-32040 PT/INR - LAB USE ONLY 17:19:10 [facility] CPT-35701 Venipuncture Draw Fee 17:19:10 [facility] CPT-21805 PT/INR - LAB USE ONLY 08:12:25 CORPORATE DIRECTOR CPT-75756 Venipuncture Draw Fee 08:12:24 CORPORATE DIRECTOR CPT-86252 Venipuncture Draw Fee 11:31:07 CORPORATE DIRECTOR CPT-36331 TPSA - LAB USE ONLY 11:31:07 CORPORATE DIRECTOR CPT-19375 PT/INR - LAB USE ONLY 11:31:07 CORPORATE DIRECTOR CPT-G0439 Subsequent Annual Wellness Exam 09:59:29 CORPORATE DIRECTOR CPT-32794 Creatinine - LAB USE ONLY 14:37:55 CORPORATE DIRECTOR CPT-29287 PT/INR - LAB USE ONLY 14:37:55 CORPORATE DIRECTOR CPT-89477 Venipuncture Draw Fee 14:37:55 CORPORATE DIRECTOR CPT-44815 LS spine comp w obliques - XRAY USE ONLY 12:59:25 CORPORATE DIRECTOR CPT-03197 PT/INR - LAB USE ONLY 13:49:20 CDT CPT-00900 Venipuncture Draw Fee 13:49:19 CDT CPT-13735 PT/INR - LAB USE ONLY 15:48:49 CDT CPT-44421 Venipuncture Draw Fee 15:48:49 CDT CPT-19528 Venipuncture Draw Fee 11:31:59 CDT CPT-87796 PT/INR - LAB USE ONLY 11:31:59 CDT CPT-31953 Venipuncture Draw Fee 13:29:15 CDT CPT-55791 Thoracolumbar AP/Lat 15:19:19 CORPORATE DIRECTOR CPT-G0438 Initial Annual Wellness Exam 12:18:54 CORPORATE DIRECTOR CPT-43712 Knee 3V 09:57:38 CDT CPT-OV Office Visit 15:45:01 CORPORATE DIRECTOR CPT-29940 Abd compl w upright 17:10:25 CDT
--- OUTSIDE RECORDS SUMMARY | 2018-07-18 09:19 | XMS REPORT | Clinical Summary ---
Author Author Admin, [employer] Address Unknown Phone Unavailable Allergies, Adverse [...] a health care facility BRONCHITIS-ACUTE 466.0 Inactive Poitr Daley DO Acute bronchitis SCREENING, COLON CANCER [...] thoracic region, left 724.1 Inactive Piotr Katie Eid DO Pain in thoracic spine Thoracic back [...] Knee pain, left ICD-719.46 Inactive Sirisha Chen IMAGING NURSE Actinic keratoses ICD-702.0 Inactive Sirisha Chen IMAGING NURSE Back pain, thoracic region, left ICD-724.1 Inactive Piotr Daley DO Thoracic back pain ICD-724.5 Inactive Sirisha Chen IMAGING NURSE Back pain lumbar ICD-724.2 Inactive Sirisha Chen IMAGING NURSE Insect bite ICD-919.4 Inactive Sirisha Chen IMAGING NURSE Pruritus ICD-698.9 Inactive Sirisha Chen IMAGING NURSE 04/09 Bronchitis-Acute ICD-466.0 Inactive Sirisha Chen IMAGING NURSE Dyspnea ICD-786.09 Inactive Sirisha Chen IMAGING NURSE 05/09 Medication List Medication Instructions Start Date Stop Date Generic Name NDC Status Provider Patient Instruction WARFARIN SODIUM 4 MG ORAL TABLET 1 tablet by mouth daily WARFARIN SODIUM 12397065942 Active Sirisha Chen IMAGING NURSE Active MELOXICAM 15 MG ORAL TABLET 1 po q day for pain with food MELOXICAM 88215229960 Active Piotr Daley DO Active PREDNISONE 10 MG ORAL TABLET 1 tablet by mouth daily PREDNISONE 22520555490 No Longer Active Emelyn Norris Active TESSALON PERLES 100 MG ORAL CAPSULE 1-2 tablet by mouth 3 times daily 04/16 BENZONATATE 52763751484 No Longer Active Emelyn Norris Active PREDNISONE 20 MG ORAL TABLET two tabs by mouth today, then one tab by mouth days two and three PREDNISONE 34558669048 No Longer Active Piotr Daley DO Active CYCLOBENZAPRINE HCL 10 MG ORAL TABLET 1 tablet by mouth three times daily as needed for muscle spasm/pain CYCLOBENZAPRINE HCL 55762500208 Active Sirisha Chen LPN Active ZITHROMAX 250 MG ORAL TABLET Take two (2 ) tablets day one, then one (1) tablet a day for four (4) more days AZITHROMYCIN 35473122053 No Longer Active Piotr Daley DO Active PROAIR HFA 108 (90 BASE) MCG/ACT INHALATION AEROSOL SOLUTION 1-2 puffs four times a day as needed ALBUTEROL SULFATE 56099227950 No Longer Active Emelyn Norris Active DOXYCYCLINE HYCLATE 100 MG ORAL CAPSULE 1 cap by mouth BID x10 days DOXYCYCLINE HYCLATE 92286521544 No Longer Active Nella Harris APRN Active PREDNISONE 20 MG ORAL TABLET 2 tabs daily for 3 days, 1 tab daily for 3 days, 1/2 tab daily for 2 days PREDNISONE 08748945234 No Longer Active Matthew Rangel MD Active TRAMADOL HCL 50 MG ORAL TABLET 1 po tid with ES Tylenol TRAMADOL HCL 80557320748 No Longer Active Matthew Rangel MD Active GABAPENTIN 300 MG ORAL CAPSULE 1 po q hs for nerve pain GABAPENTIN 74362274072 No Longer Active Matthew Rangel MD Active PREDNISONE 20 MG ORAL TABLET 2 tablets today, then 1 tablet days 2 through 4 PREDNISONE 47558809504 No Longer Active Piotr Daley DO Active AZITHROMYCIN 250 MG ORAL TABLET 2 po qd x 1 day, then 1 po qd x 4 days 07/12 AZITHROMYCIN 31667525331 No Longer Active Piotr Daley DO Active IBUPROFEN 800 MG ORAL TABLET 1 tab every 8 hours as needed 07/12 IBUPROFEN 07093051275 No Longer Active Piotr Daley DO Active LOMOTIL 2.5-0.025 MG ORAL TABLET 1 to 2 four times a day as needed for diarrhea DIPHENOXYLATE-ATROPINE 02934146723 No Longer Active Piotr W Edi DO Active WARFARIN SODIUM 4 MG ORAL TABLET 1 tab every evening WARFARIN SODIUM 00620725142 No Longer Active Piotr Daley DO Active PREDNISONE 20 MG ORAL TABLET 1 tablet twice daily for 2 days, then 1 tablet once daily for 2 days PREDNISONE 71066141804 No Longer Active Piotr Daley DO Active PROMETHAZINE HCL 25 MG ORAL TABLET 1 four times a day as needed for nausea/ vomiting PROMETHAZINE HCL 21060256335 No Longer Active Piotr Daley DO Active TUSSIONEX PENNKINETIC ER 10-8 MG/5ML ORAL SUSPENSION EXTENDED RELEASE 5ml po q12hr PRN Cough HYDROCOD POLST-CHLORPHEN POLST 47034133746 No Longer Active Piotr Daley DO Active AZITHROMYCIN 250 MG ORAL TABLET 2 po qd x 1 day, then 1 po qd x 4 days 10/13 AZITHROMYCIN 68014938052 No Longer Active Piotr Daley DO Active AZITHROMYCIN 250 MG ORAL TABLET 2 po qd x 1 day, then 1 po qd x 4 days 05/07 AZITHROMYCIN 60055367689 No Longer Active Piotr Daley DO Active LISINOPRIL-HYDROCHLOROTHIAZIDE 10-12.5 MG ORAL TABLET 1 tab by mouth daily LISINOPRIL-HYDROCHLOROTHIAZIDE 63152028138 Active Piotr Daley DO Active LISINOPRIL 10 MG ORAL TABLET 1/2-1 tab po every other day LISINOPRIL 96232599207 No Longer Active Piotr Daley DO Active VENTOLIN HFA 108 (90 Base) MCG/ACT INHALATION AEROSOL SOLUTION 2 puffs four times a day PRN cough ALBUTEROL SULFATE 42387104011 No Longer Active Piotr Daley DO Active NYSTATIN-TRIAMCINOLONE 876630-2.1 UNIT/GM-% EXTERNAL CREAM Apply to area BID NYSTATIN-TRIAMCINOLONE 23327237134 No Longer Active Alena Chavira IMAGING NURSE Active PHISOHEX 3 % LIQD Use Directed HEXACHLOROPHENE 52907122001 No Longer Active Sandra Fombell Active AZITHROMYCIN 250 MG ORAL TABLET 2 po qd x 1 day, then 1 po qd x 4 days 10/21 AZITHROMYCIN 07586176933 No Longer Active Katrina Rinaldi MD PhD Active AZITHROMYCIN 250 MG ORAL TABLET 2 po qd x 1 day, then 1 po qd x 4 days 10/16 AZITHROMYCIN 43658951648 No Longer Active Piotr Daley DO Active AZITHROMYCIN 500 MG INTRAVENOUS SOLUTION RECONSTITUTED 1 po q day AZITHROMYCIN 18604650701 No Longer Active Piotr Daley DO Active NYSTATIN-TRIAMCINOLONE 575185-7.1 UNIT/GM-% EXTERNAL CREAM apply bid NYSTATIN-TRIAMCINOLONE 45205240137 No Longer Active Piotr Daley DO Active IBUPROFEN 800 MG ORAL TABLET 1 po q 8 hours prn pain sparinly IBUPROFEN 22355366212 No Longer Active Piotr Daley DO Active VITAMIN D3 5000 UNIT ORAL CAPSULE 1 po daily CHOLECALCIFEROL 12569222112 Active Piotr Daley DO Active IBUPROFEN 800 MG ORAL TABLET 1 po q 8 hours prn pain sparinly IBUPROFEN 800 MG ORAL TABLET 176356 IBUPROFEN Inactive NYSTATIN-TRIAMCINOLONE 386563-0.1 UNIT/GM-% EXTERNAL CREAM apply bid NYSTATIN-TRIAMCINOLONE 663841-8.1 UNIT/GM-% EXTERNAL CREAM 8424836 NYSTATIN-TRIAMCINOLONE Inactive AZITHROMYCIN 500 MG INTRAVENOUS SOLUTION RECONSTITUTED 1 po q day AZITHROMYCIN 500 MG INTRAVENOUS SOLUTION RECONSTITUTED 95217249465 AZITHROMYCIN Inactive VENTOLIN HFA 108 (90 Base) MCG/ACT INHALATION AEROSOL SOLUTION 2 puffs four times a day PRN cough VENTOLIN HFA 108 (90 Base) MCG/ ACT INHALATION AEROSOL SOLUTION ALBUTEROL SULFATE Inactive LISINOPRIL 10 MG ORAL TABLET 1/2-1 tab po every other day LISINOPRIL 10 MG ORAL TABLET 632044 LISINOPRIL Inactive TUSSIONEX PENNKINETIC ER 10-8 MG/5ML ORAL SUSPENSION EXTENDED RELEASE 5ml po q12hr PRN Cough TUSSIONEX PENNKINETIC ER 10-8 MG/5ML ORAL SUSPENSION EXTENDED RELEASE HYDROCOD POLST-CHLORPHEN POLST Inactive PROMETHAZINE HCL 25 MG ORAL TABLET 1 four times a day as needed for nausea/ vomiting PROMETHAZINE HCL 25 MG ORAL TABLET 857458 PROMETHAZINE HCL Inactive PREDNISONE 20 MG ORAL TABLET 1 tablet twice daily for 2 days, then 1 tablet once daily for 2 days PREDNISONE 20 MG ORAL TABLET 418780 PREDNISONE Inactive WARFARIN SODIUM 4 MG ORAL TABLET 1 tab every evening WARFARIN SODIUM 4 MG ORAL TABLET 254254 WARFARIN SODIUM Inactive LOMOTIL 2.5-0.025 MG ORAL TABLET 1 to 2 four times a day as needed for diarrhea LOMOTIL 2.5-0.025 MG ORAL TABLET 4982355 DIPHENOXYLATE-ATROPINE Inactive IBUPROFEN 800 MG ORAL TABLET 1 tab every 8 hours as needed 07/12 IBUPROFEN 800 MG ORAL TABLET 926866 IBUPROFEN Inactive PREDNISONE 20 MG ORAL TABLET 2 tablets today, then 1 tablet days 2 through 4 PREDNISONE 20 MG ORAL TABLET 488436 PREDNISONE Inactive GABAPENTIN 300 MG ORAL CAPSULE 1 po q hs for nerve pain GABAPENTIN 300 MG ORAL CAPSULE 275650 GABAPENTIN Inactive TRAMADOL HCL 50 MG ORAL TABLET 1 po tid with ES Tylenol TRAMADOL HCL 50 MG ORAL TABLET 241062 TRAMADOL HCL Inactive PROAIR HFA 108 (90 BASE) MCG/ACT INHALATION AEROSOL SOLUTION 1-2 puffs four times a day as needed PROAIR HFA 108 (90 BASE) MCG/ACT INHALATION AEROSOL SOLUTION ALBUTEROL SULFATE Inactive PREDNISONE 20 MG ORAL TABLET two tabs by mouth today, then one tab by mouth days two and three PREDNISONE 20 MG ORAL TABLET 592429 PREDNISONE Inactive TESSALON PERLES 100 MG ORAL CAPSULE 1-2 tablet by mouth 3 times daily 04/16 TESSALON PERLES 100 MG ORAL CAPSULE 511107 BENZONATATE Inactive PREDNISONE 10 MG ORAL TABLET 1 tablet by mouth daily PREDNISONE 10 MG ORAL TABLET 124762 PREDNISONE Inactive AZITHROMYCIN 250 MG ORAL TABLET 2 po qd x 1 day, then 1 po qd x 4 days 10/16 AZITHROMYCIN 250 MG ORAL TABLET 580137 AZITHROMYCIN Inactive AZITHROMYCIN 250 MG ORAL TABLET 2 po qd x 1 day, then 1 po qd x 4 days 10/21 AZITHROMYCIN 250 MG ORAL TABLET 886422 AZITHROMYCIN Inactive NYSTATIN-TRIAMCINOLONE 012369-3.1 UNIT/GM-% EXTERNAL CREAM Apply to area BID NYSTATIN-TRIAMCINOLONE 284313-2.1 UNIT/GM-% EXTERNAL CREAM 9842631 NYSTATIN-TRIAMCINOLONE Inactive AZITHROMYCIN 250 MG ORAL TABLET 2 po qd x 1 day, then 1 po qd x 4 days 05/07 AZITHROMYCIN 250 MG ORAL TABLET 146862 AZITHROMYCIN Inactive AZITHROMYCIN 250 MG ORAL TABLET 2 po qd x 1 day, then 1 po qd x 4 days 10/13 AZITHROMYCIN 250 MG ORAL TABLET 513805 AZITHROMYCIN Inactive AZITHROMYCIN 250 MG ORAL TABLET 2 po qd x 1 day, then 1 po qd x 4 days 07/12 AZITHROMYCIN 250 MG ORAL TABLET 074832 AZITHROMYCIN Inactive PREDNISONE 20 MG ORAL TABLET 2 tabs daily for 3 days, 1 tab daily for 3 days, 1/2 tab daily for 2 days PREDNISONE 20 MG ORAL TABLET 346353 PREDNISONE Inactive DOXYCYCLINE HYCLATE 100 MG ORAL CAPSULE 1 cap by mouth BID x10 days DOXYCYCLINE HYCLATE 100 MG ORAL CAPSULE 4489087 DOXYCYCLINE HYCLATE Inactive ZITHROMAX 250 MG ORAL TABLET Take two (2 ) tablets day one, then one (1) tablet a day for four (4) more days ZITHROMAX 250 MG ORAL TABLET 256990 AZITHROMYCIN Inactive Advance Directives Directive Description Start [...] Measured Encounters Code Encounter Date Provider Facility CPT-89442 Level 3 Est. Patient 15:59:25 HEAD PAPER TESTER Piotr Daley [facility] CPT-41327 Level 3 Est. Patient 12:33:59 HEAD PAPER TESTER Piotr Daley [facility] CPT-86515 Level 3 Est. Patient 15:56:17 HEAD PAPER TESTER Piotr Daley [facility] CPT-33994 Level 3 Est. Patient 10:34:54 HEAD PAPER TESTER Piotr Daley [facility] CPT-63459 Level 3 Est. Patient 17:10:19 MALACHI Harris APRN [facility] CPT-25178 Level 3 Est. Patient 10:48:17 HEAD PAPER TESTER Matthew Rangel MD [facility] CPT-14132 Level 4 Est. Patient 17:15:07 HEAD PAPER TESTER Piotr Daley [facility] CPT-76712 Level 3 Est. Patient 12:46:13 HEAD PAPER TESTER Piotr Daley [facility] CPT-27814 Level 3 Est. Patient 15:14:31 HEAD PAPER TESTER Piotr Daley [facility] CPT-24671 Level 3 Est. Patient 09:20:13 HEAD PAPER TESTER Piotr Daley [facility] CPT-30310 Level 3 Est. Patient 09:49:40 CDT Piotr Daley [facility] CPT-59644 Level 3 Est. Patient 16:28:[address] [facility] CPT-46464 Level 3 Est. Patient 12:41:58 HEAD PAPER TESTER Piotr Daley [facility] CPT-27709 Level 3 Est. Patient 09:21:24 CDT Piotr Daley [facility] CPT-30753 Level 3 Est. Patient 09:21:11 CDT Piotr Daley [facility] CPT-32859 Level 3 Est. Patient 11:16:29 HEAD PAPER TESTER Piotr Daley [facility] CPT-66298 Level 3 Est. Patient 18:40:19 HEAD PAPER TESTER Piotr Daley [facility] CPT-10068 Level 3 Est. Patient 19:30:[address] [facility] CPT-36524 Level 3 Est. Patient 22:06:44 CDT Katrina Rinaldi MD PhD [facility] CPT-24549 Level 3 Est. Patient 14:20:[address] [facility] CPT-36455 Level 3 Est. Patient 14:15:22 HEAD PAPER TESTER Piotr Daley [facility] CPT-82174 Level 3 Est. Patient 20:19:57 HEAD PAPER TESTER Piotr Daley [facility] CPT-58057 Level 3 Est. Patient 16:44:[address] [facility] CPT-75747 Level 3 Est. Patient 08:48:46 HEAD PAPER TESTER Piotr Daley [facility] CPT-32821 Level 3 Est. Patient 21:01:[address] [facility] Procedures Code Procedure Name Date Entry Date Standard Description CPT-75386 Sacroiliac jt < 3V - XRAY USE ONLY 16:45:19 HEAD PAPER TESTER 05/09 CPT-79215 LS spine comp w obliques - XRAY USE ONLY 14:52:26 HEAD PAPER TESTER CPT-21474 Chest, 2 views 12:55:58 HEAD PAPER TESTER CPT-G0439 Subsequent Annual Wellness Exam 10:34:52 HEAD PAPER TESTER CPT-14284 BMP - LAB USE ONLY 17:19:11 HEAD PAPER TESTER CPT-58892 PT/INR - LAB USE ONLY 17:19:10 [facility] CPT-45073 Venipuncture Draw Fee 17:19:10 [facility] CPT-37622 PT/INR - LAB USE ONLY 08:12:25 HEAD PAPER TESTER CPT-82702 Venipuncture Draw Fee 08:12:24 HEAD P[employer]ER TE[employer] CPT-03669 Venipuncture Draw Fee 11:31:07 HEAD PAPER TESTER CPT-53512 TPSA - LAB USE ONLY 11:31:07 HEAD PAPER TE[employer] CPT-06518 PT/INR - LAB USE ONLY 11:31:07 HEAD PAPER TESTER CPT-G0439 Subsequent Annual Wellness Exam 09:59:29 HEAD PAPER TESTER CPT-39124 Creatinine - LAB USE ONLY 14:37:55 HEAD PAPER TESTER CPT-21487 PT/INR - LAB USE ONLY 14:37:55 HEAD PAPER TESTER CPT-92586 Venipuncture Draw Fee 14:37:55 HEAD PAPER TESTER CPT-22068 LS spine comp w obliques - XRAY USE ONLY 12:59:25 HEAD PAPER TESTER CPT-52713 PT/INR - LAB USE ONLY 13:49:20 CDT CPT-27315 Venipuncture Draw Fee 13:49:19 CDT CPT-83834 PT/INR - LAB USE ONLY 15:48:49 CDT CPT-90550 Venipuncture Draw Fee 15:48:49 CDT CPT-83448 Venipuncture Draw Fee 11:31:59 CDT CPT-01424 PT/INR - LAB USE ONLY 11:31:59 CDT CPT-72444 Venipuncture Draw Fee 13:29:15 CDT CPT-04014 Thoracolumbar AP/Lat 15:19:19 HEAD PAPER TE[employer] CPT-G0438 Initial Annual Wellness Exam 12:18:54 HEAD PAPER TESTER CPT-00327 Knee 3V 09:57:38 CDT CPT-OV Office Visit 15:45:01 HEAD PAPER TESTER CPT-82897 Abd compl w upright 17:10:25 CDT
--- OUTSIDE RECORDS SUMMARY | 2018-07-18 09:20 | XMS REPORT | Clinical Summary ---
Author Author Admin, [facility] [employer] [facility] Address Unknown Phone Unavailable Allergies, Adverse Reactions, [...] Knee pain, left ICD-719.46 Inactive Sirisha Chen [employer] Actinic keratoses ICD-702.0 Inactive Sirisha Chen [employer] Back pain, thoracic region, left ICD-724.1 Inactive Piotr Daley DO Thoracic back pain ICD-724.5 Inactive Sirisha Chen [employer] Back pain lumbar ICD-724.2 Inactive Sirisha Chen [employer] Insect bite ICD-919.4 Inactive Sirisha Chen [employer] Pruritus ICD-698.9 Inactive Sirisha Chen [employer] 04/09 Bronchitis-Acute ICD-466.0 Inactive Sirisha Chen [employer] Dyspnea ICD-786.09 Inactive Sirisha Chen [employer] 05/09 Medication List Medication Instructions Start Date Stop Date Generic Name NDC Status Provider Patient Instruction WARFARIN SODIUM 4 MG ORAL TABLET 1 tablet by mouth daily WARFARIN SODIUM 18426963305 Active Sirisha Chen [employer] Active MELOXICAM 15 MG ORAL TABLET 1 po q day for pain with food MELOXICAM 40799474469 Active Piotr Daley DO Active PREDNISONE 10 MG ORAL TABLET 1 tablet by mouth daily PREDNISONE 84039851716 No Longer Active Emelyn Norris Active TESSALON PERLES 100 MG ORAL CAPSULE 1-2 tablet by mouth 3 times daily 04/16 BENZONATATE 12354265948 No Longer Active Emelyn Norris Active PREDNISONE 20 MG ORAL TABLET two tabs by mouth today, then one tab by mouth days two and three PREDNISONE 64376278633 No Longer Active Piotr Daley DO Active CYCLOBENZAPRINE HCL 10 MG ORAL TABLET 1 tablet by mouth three times daily as needed for muscle spasm/pain CYCLOBENZAPRINE HCL 84804728484 Active Sirisha hCen LPN Active ZITHROMAX 250 MG ORAL TABLET Take two (2 ) tablets day one, then one (1) tablet a day for four (4) more days AZITHROMYCIN 52944028235 No Longer Active Piotr Daley DO Active PROAIR HFA 108 (90 BASE) MCG/ACT INHALATION AEROSOL SOLUTION 1-2 puffs four times a day as needed ALBUTEROL SULFATE 31717462523 No Longer Active Emelyn Norris Active DOXYCYCLINE HYCLATE 100 MG ORAL CAPSULE 1 cap by mouth BID x10 days DOXYCYCLINE HYCLATE 62096573366 No Longer Active Nella Harris APRN Active PREDNISONE 20 MG ORAL TABLET 2 tabs daily for 3 days, 1 tab daily for 3 days, 1/2 tab daily for 2 days PREDNISONE 66333486654 No Longer Active Matthew Rangel MD Active TRAMADOL HCL 50 MG ORAL TABLET 1 po tid with ES Tylenol TRAMADOL HCL 71138290227 No Longer Active Matthew Rangel MD Active GABAPENTIN 300 MG ORAL CAPSULE 1 po q hs for nerve pain GABAPENTIN 28153739959 No Longer Active Matthew Rangel MD Active PREDNISONE 20 MG ORAL TABLET 2 tablets today, then 1 tablet days 2 through 4 PREDNISONE 98738136035 No Longer Active Piotr Daley DO Active AZITHROMYCIN 250 MG ORAL TABLET 2 po qd x 1 day, then 1 po qd x 4 days 07/12 AZITHROMYCIN 35404585810 No Longer Active Piotr Daley DO Active IBUPROFEN 800 MG ORAL TABLET 1 tab every 8 hours as needed 07/12 IBUPROFEN 46164963133 No Longer Active Piotr Daley DO Active LOMOTIL 2.5-0.025 MG ORAL TABLET 1 to 2 four times a day as needed for diarrhea DIPHENOXYLATE-ATROPINE 36519116519 No Longer Active Piotr W Edi DO Active WARFARIN SODIUM 4 MG ORAL TABLET 1 tab every evening WARFARIN SODIUM 33092661849 No Longer Active Piotr Daley DO Active PREDNISONE 20 MG ORAL TABLET 1 tablet twice daily for 2 days, then 1 tablet once daily for 2 days PREDNISONE 59200008466 No Longer Active Piotr Daley DO Active PROMETHAZINE HCL 25 MG ORAL TABLET 1 four times a day as needed for nausea/ vomiting PROMETHAZINE HCL 40868609688 No Longer Active Piotr Daley DO Active TUSSIONEX PENNKINETIC ER 10-8 MG/5ML ORAL SUSPENSION EXTENDED RELEASE 5ml po q12hr PRN Cough HYDROCOD POLST-CHLORPHEN POLST 35056191425 No Longer Active Piotr Daley DO Active AZITHROMYCIN 250 MG ORAL TABLET 2 po qd x 1 day, then 1 po qd x 4 days 10/13 AZITHROMYCIN 61685465858 No Longer Active Piotr Daley DO Active AZITHROMYCIN 250 MG ORAL TABLET 2 po qd x 1 day, then 1 po qd x 4 days 05/07 AZITHROMYCIN 58925196525 No Longer Active Piotr Daley DO Active LISINOPRIL-HYDROCHLOROTHIAZIDE 10-12.5 MG ORAL TABLET 1 tab by mouth daily LISINOPRIL-HYDROCHLOROTHIAZIDE 21631891815 Active Piotr Daley DO Active LISINOPRIL 10 MG ORAL TABLET 1/2-1 tab po every other day LISINOPRIL 62165635097 No Longer Active Piotr Daley DO Active VENTOLIN HFA 108 (90 Base) MCG/ACT INHALATION AEROSOL SOLUTION 2 puffs four times a day PRN cough ALBUTEROL SULFATE 83547894397 No Longer Active Piotr Daley DO Active NYSTATIN-TRIAMCINOLONE 323558-4.1 UNIT/GM-% EXTERNAL CREAM Apply to area BID NYSTATIN-TRIAMCINOLONE 74528509892 No Longer Active Alena Chavira [employer] Active PHISOHEX 3 % LIQD Use Directed HEXACHLOROPHENE 79538439275 No Longer Active Sandra [place] Active AZITHROMYCIN 250 MG ORAL TABLET 2 po qd x 1 day, then 1 po qd x 4 days 10/21 AZITHROMYCIN 56931467708 No Longer Active Katrina Rinaldi MD PhD Active AZITHROMYCIN 250 MG ORAL TABLET 2 po qd x 1 day, then 1 po qd x 4 days 10/16 AZITHROMYCIN 58817653920 No Longer Active Piotr Daley DO Active AZITHROMYCIN 500 MG INTRAVENOUS SOLUTION RECONSTITUTED 1 po q day AZITHROMYCIN 16678839188 No Longer Active Piotr Daley DO Active NYSTATIN-TRIAMCINOLONE 380769-8.1 UNIT/GM-% EXTERNAL CREAM apply bid NYSTATIN-TRIAMCINOLONE 84558726135 No Longer Active Piotr Daley DO Active IBUPROFEN 800 MG ORAL TABLET 1 po q 8 hours prn pain sparinly IBUPROFEN 84023938179 No Longer Active Piotr Daley DO Active VITAMIN D3 5000 UNIT ORAL CAPSULE 1 po daily CHOLECALCIFEROL 03469214131 Active Piotr Daley DO Active IBUPROFEN 800 MG ORAL TABLET 1 po q 8 hours prn pain sparinly IBUPROFEN 800 MG ORAL TABLET 489995 IBUPROFEN Inactive NYSTATIN-TRIAMCINOLONE 570667-4.1 UNIT/GM-% EXTERNAL CREAM apply bid NYSTATIN-TRIAMCINOLONE 296530-6.1 UNIT/GM-% EXTERNAL CREAM 8218339 NYSTATIN-TRIAMCINOLONE Inactive AZITHROMYCIN 500 MG INTRAVENOUS SOLUTION RECONSTITUTED 1 po q day AZITHROMYCIN 500 MG INTRAVENOUS SOLUTION RECONSTITUTED 76474835161 AZITHROMYCIN Inactive VENTOLIN HFA 108 (90 Base) MCG/ACT INHALATION AEROSOL SOLUTION 2 puffs four times a day PRN cough VENTOLIN HFA 108 (90 Base) MCG/ ACT INHALATION AEROSOL SOLUTION ALBUTEROL SULFATE Inactive LISINOPRIL 10 MG ORAL TABLET 1/2-1 tab po every other day LISINOPRIL 10 MG ORAL TABLET 504275 LISINOPRIL Inactive TUSSIONEX PENNKINETIC ER 10-8 MG/5ML ORAL SUSPENSION EXTENDED RELEASE 5ml po q12hr PRN Cough TUSSIONEX PENNKINETIC ER 10-8 MG/5ML ORAL SUSPENSION EXTENDED RELEASE HYDROCOD POLST-CHLORPHEN POLST Inactive PROMETHAZINE HCL 25 MG ORAL TABLET 1 four times a day as needed for nausea/ vomiting PROMETHAZINE HCL 25 MG ORAL TABLET 876103 PROMETHAZINE HCL Inactive PREDNISONE 20 MG ORAL TABLET 1 tablet twice daily for 2 days, then 1 tablet once daily for 2 days PREDNISONE 20 MG ORAL TABLET 785822 PREDNISONE Inactive WARFARIN SODIUM 4 MG ORAL TABLET 1 tab every evening WARFARIN SODIUM 4 MG ORAL TABLET 623268 WARFARIN SODIUM Inactive LOMOTIL 2.5-0.025 MG ORAL TABLET 1 to 2 four times a day as needed for diarrhea LOMOTIL 2.5-0.025 MG ORAL TABLET 0875868 DIPHENOXYLATE-ATROPINE Inactive IBUPROFEN 800 MG ORAL TABLET 1 tab every 8 hours as needed 07/12 IBUPROFEN 800 MG ORAL TABLET 898604 IBUPROFEN Inactive PREDNISONE 20 MG ORAL TABLET 2 tablets today, then 1 tablet days 2 through 4 PREDNISONE 20 MG ORAL TABLET 399505 PREDNISONE Inactive GABAPENTIN 300 MG ORAL CAPSULE 1 po q hs for nerve pain GABAPENTIN 300 MG ORAL CAPSULE 744622 GABAPENTIN Inactive TRAMADOL HCL 50 MG ORAL TABLET 1 po tid with ES Tylenol TRAMADOL HCL 50 MG ORAL TABLET 962008 TRAMADOL HCL Inactive PROAIR HFA 108 (90 BASE) MCG/ACT INHALATION AEROSOL SOLUTION 1-2 puffs four times a day as needed PROAIR HFA 108 (90 BASE) MCG/ACT INHALATION AEROSOL SOLUTION ALBUTEROL SULFATE Inactive PREDNISONE 20 MG ORAL TABLET two tabs by mouth today, then one tab by mouth days two and three PREDNISONE 20 MG ORAL TABLET 252978 PREDNISONE Inactive TESSALON PERLES 100 MG ORAL CAPSULE 1-2 tablet by mouth 3 times daily 04/16 TESSALON PERLES 100 MG ORAL CAPSULE 461027 BENZONATATE Inactive PREDNISONE 10 MG ORAL TABLET 1 tablet by mouth daily PREDNISONE 10 MG ORAL TABLET 577499 PREDNISONE Inactive AZITHROMYCIN 250 MG ORAL TABLET 2 po qd x 1 day, then 1 po qd x 4 days 10/16 AZITHROMYCIN 250 MG ORAL TABLET 179491 AZITHROMYCIN Inactive AZITHROMYCIN 250 MG ORAL TABLET 2 po qd x 1 day, then 1 po qd x 4 days 10/21 AZITHROMYCIN 250 MG ORAL TABLET 471627 AZITHROMYCIN Inactive NYSTATIN-TRIAMCINOLONE 562947-1.1 UNIT/GM-% EXTERNAL CREAM Apply to area BID NYSTATIN-TRIAMCINOLONE 863968-7.1 UNIT/GM-% EXTERNAL CREAM 5001606 NYSTATIN-TRIAMCINOLONE Inactive AZITHROMYCIN 250 MG ORAL TABLET 2 po qd x 1 day, then 1 po qd x 4 days 05/07 AZITHROMYCIN 250 MG ORAL TABLET 511134 AZITHROMYCIN Inactive AZITHROMYCIN 250 MG ORAL TABLET 2 po qd x 1 day, then 1 po qd x 4 days 10/13 AZITHROMYCIN 250 MG ORAL TABLET 377274 AZITHROMYCIN Inactive AZITHROMYCIN 250 MG ORAL TABLET 2 po qd x 1 day, then 1 po qd x 4 days 07/12 AZITHROMYCIN 250 MG ORAL TABLET 368266 AZITHROMYCIN Inactive PREDNISONE 20 MG ORAL TABLET 2 tabs daily for 3 days, 1 tab daily for 3 days, 1/2 tab daily for 2 days PREDNISONE 20 MG ORAL TABLET 091474 PREDNISONE Inactive DOXYCYCLINE HYCLATE 100 MG ORAL CAPSULE 1 cap by mouth BID x10 days DOXYCYCLINE HYCLATE 100 MG ORAL CAPSULE 9384399 DOXYCYCLINE HYCLATE Inactive ZITHROMAX 250 MG ORAL TABLET Take two (2 ) tablets day one, then one (1) tablet a day for four (4) more days ZITHROMAX 250 MG ORAL TABLET 861236 AZITHROMYCIN Inactive Advance Directives Directive Description Start [...] Measured Encounters Code Encounter Date Provider Facility CPT-81469 Level 3 Est. Patient 15:59:25 STEAM CLEAN MACHINE OPERATOR Piotr Daley [facility] CPT-94178 Level 3 Est. Patient 12:33:59 STEAM CLEAN MACHINE OPERATOR Piotr Daley [facility] CPT-77747 Level 3 Est. Patient 15:56:17 STEAM CLEAN MACHINE OPERATOR Piotr Daley [facility] CPT-11590 Level 3 Est. Patient 10:34:54 STEAM CLEAN MACHINE OPERATOR Piotr Daley [facility] CPT-15941 Level 3 Est. Patient 17:10:19 MALACHI Harris APRN [facility] CPT-34405 Level 3 Est. Patient 10:48:17 STEAM CLEAN MACHINE OPERATOR Matthew Rangel MD [facility] CPT-22424 Level 4 Est. Patient 17:15:07 STEAM CLEAN MACHINE OPERATOR Piotr Daley [facility] CPT-47885 Level 3 Est. Patient 12:46:13 STEAM CLEAN MACHINE OPERATOR Piotr Daley [facility] CPT-57582 Level 3 Est. Patient 15:14:31 STEAM CLEAN MACHINE OPERATOR Piotr Daley [facility] CPT-69470 Level 3 Est. Patient 09:20:13 STEAM CLEAN MACHINE OPERATOR Piotr Daley [facility] CPT-99942 Level 3 Est. Patient 09:49:40 CDT Piotr Daley [facility] CPT-27385 Level 3 Est. Patient 16:28:11 CDT Piotr Daley [facility] CPT-24023 Level 3 Est. Patient 12:41:58 STEAM CLEAN MACHINE OPERATOR Piotr Daley [facility] CPT-78897 Level 3 Est. Patient 09:21:24 CDT Piotr Daley [facility] CPT-54313 Level 3 Est. Patient 09:21:11 CDT Piotr Daley [facility] CPT-74626 Level 3 Est. Patient 11:16:29 STEAM CLEAN MACHINE OPERATOR Piotr Daley [facility] CPT-51189 Level 3 Est. Patient 18:40:19 STEAM CLEAN MACHINE OPERATOR Piotr Daley [facility] CPT-09187 Level 3 Est. Patient 19:30:50 CDT Piotr Daley [facility] CPT-52961 Level 3 Est. Patient 22:06:44 CDT Katrina Rinaldi MD PhD [facility] CPT-93455 Level 3 Est. Patient 14:20:00 CDT Piotr Daley [facility] CPT-60714 Level 3 Est. Patient 14:15:22 STEAM CLEAN MACHINE OPERATOR Piotr Daley [facility] CPT-87964 Level 3 Est. Patient 20:19:57 STEAM CLEAN MACHINE OPERATOR Piotr Daley [facility] CPT-92617 Level 3 Est. Patient 16:44:32 CDT Piotr Daley [facility] CPT-28018 Level 3 Est. Patient 08:48:46 STEAM CLEAN MACHINE OPERATOR Piotr Daley [facility] CPT-68111 Level 3 Est. Patient 21:01:21 CDT Piotr Daley [facility] Procedures Code Procedure Name Date Entry Date Standard Description CPT-72010 Sacroiliac jt < 3V - XRAY USE ONLY 16:45:19 STEAM CLEAN MACHINE OPERATOR 05/09 CPT-22320 LS spine comp w obliques - XRAY USE ONLY 14:52:26 STEAM CLEAN MACHINE OPERATOR CPT-70604 Chest, 2 views 12:55:58 STEAM CLEAN MACHINE OPERATOR CPT-G0439 Subsequent Annual Wellness Exam 10:34:52 STEAM CLEAN MACHINE OPERATOR CPT-49984 BMP - LAB USE ONLY 17:19:11 STEAM CLEAN MACHINE OPERATOR CPT-30322 PT/INR - LAB USE ONLY 17:19:10 [facility] CPT-53847 Venipuncture Draw Fee 17:19:10 [facility] CPT-80017 PT/INR - LAB USE ONLY 08:12:25 STEAM CLEAN MACHINE OPERATOR CPT-92838 Venipuncture Draw Fee 08:12:24 STEAM CLEAN MACHINE OPERATOR CPT-82239 Venipuncture Draw Fee 11:31:07 STEAM CLEAN MACHINE OPERATOR CPT-07293 TPSA - LAB USE ONLY 11:31:07 STEAM CLEAN MACHINE OPERATOR CPT-82829 PT/INR - LAB USE ONLY 11:31:07 STEAM CLEAN MACHINE OPERATOR CPT-G0439 Subsequent Annual Wellness Exam 09:59:29 STEAM CLEAN MACHINE OPERATOR CPT-53487 Creatinine - LAB USE ONLY 14:37:55 STEAM CLEAN MACHINE OPERATOR CPT-73731 PT/INR - LAB USE ONLY 14:37:55 STEAM CLEAN MACHINE OPERATOR CPT-64604 Venipuncture Draw Fee 14:37:55 STEAM CLEAN MACHINE OPERATOR CPT-63346 LS spine comp w obliques - XRAY USE ONLY 12:59:25 STEAM CLEAN MACHINE OPERATOR CPT-49291 PT/INR - LAB USE ONLY 13:49:20 CDT CPT-86526 Venipuncture Draw Fee 13:49:19 CDT CPT-46361 PT/INR - LAB USE ONLY 15:48:49 CDT CPT-23055 Venipuncture Draw Fee 15:48:49 CDT CPT-67057 Venipuncture Draw Fee 11:31:59 CDT CPT-79510 PT/INR - LAB USE ONLY 11:31:59 CDT CPT-07118 Venipuncture Draw Fee 13:29:15 CDT CPT-58723 Thoracolumbar AP/Lat 15:19:19 STEAM CLEAN MACHINE OPERATOR CPT-G0438 Initial Annual Wellness Exam 12:18:54 STEAM CLEAN MACHINE OPERATOR CPT-08574 Knee 3V 09:57:38 CDT CPT-OV Office Visit 15:45:01 STEAM CLEAN MACHINE OPERATOR CPT-28137 Abd compl w upright 17:10:25 CDT
--- OUTSIDE RECORDS SUMMARY | 2018-07-18 09:21 | XMS REPORT | Clinical Summary ---
Author Author Admin, B[employer] Organization [employer] Address Unknown Phone Unavailable Allergies, Adverse [...] Coronary atherosclerosis of unspecified type of vessel, alutiiq or graft Back pain, thoracic region, left [...] Knee pain, left ICD-719.46 Inactive Sirisha Chen CHARGER TESTER Actinic keratoses ICD-702.0 Inactive Sirisha Chen CHARGER TESTER Back pain, thoracic region, left ICD-724.1 Inactive Piotr Daley DO Thoracic back pain ICD-724.5 Inactive Sirisha Chen CHARGER TESTER Back pain lumbar ICD-724.2 Inactive Sirisha Chen CHARGER TESTER Insect bite ICD-919.4 Inactive Sirisha Chen CHARGER TESTER Pruritus ICD-698.9 Inactive Sirisha Chen CHARGER TESTER 04/09 Bronchitis-Acute ICD-466.0 Inactive Sirisha Chen CHARGER TESTER Dyspnea ICD-786.09 Inactive Sirisha Chen CHARGER TESTER 05/09 Medication List Medication Instructions Start Date Stop Date Generic Name NDC Status Provider Patient Instruction WARFARIN SODIUM 4 MG ORAL TABLET 1 tablet by mouth daily WARFARIN SODIUM 27001036074 Active Sirisha Chen CHARGER TESTER Active MELOXICAM 15 MG ORAL TABLET 1 po q day for pain with food MELOXICAM 92357008913 Active Piort Daley DO Active PREDNISONE 10 MG ORAL TABLET 1 tablet by mouth daily PREDNISONE 28377948900 No Longer Active Emelyn Norris Active TESSALON PERLES 100 MG ORAL CAPSULE 1-2 tablet by mouth 3 times daily 04/16 BENZONATATE 98410548193 No Longer Active Emelyn Norris Active PREDNISONE 20 MG ORAL TABLET two tabs by mouth today, then one tab by mouth days two and three PREDNISONE 40074580115 No Longer Active Piotr Daley DO Active CYCLOBENZAPRINE HCL 10 MG ORAL TABLET 1 tablet by mouth three times daily as needed for muscle spasm/pain CYCLOBENZAPRINE HCL 76863918064 Active Sirisha Chen LPN Active ZITHROMAX 250 MG ORAL TABLET Take two (2 ) tablets day one, then one (1) tablet a day for four (4) more days AZITHROMYCIN 62017929065 No Longer Active Piotr Daley DO Active PROAIR HFA 108 (90 BASE) MCG/ACT INHALATION AEROSOL SOLUTION 1-2 puffs four times a day as needed ALBUTEROL SULFATE 87455461044 No Longer Active Emelyn Norris Active DOXYCYCLINE HYCLATE 100 MG ORAL CAPSULE 1 cap by mouth BID x10 days DOXYCYCLINE HYCLATE 00791406333 No Longer Active Nella Harris APRN Active PREDNISONE 20 MG ORAL TABLET 2 tabs daily for 3 days, 1 tab daily for 3 days, 1/2 tab daily for 2 days PREDNISONE 98752887293 No Longer Active Matthew Rangel MD Active TRAMADOL HCL 50 MG ORAL TABLET 1 po tid with ES Tylenol TRAMADOL HCL 75103663870 No Longer Active Matthew Rangel MD Active GABAPENTIN 300 MG ORAL CAPSULE 1 po q hs for nerve pain GABAPENTIN 98746923693 No Longer Active Matthew Rangel MD Active PREDNISONE 20 MG ORAL TABLET 2 tablets today, then 1 tablet days 2 through 4 PREDNISONE 96322393756 No Longer Active Piotr Daley DO Active AZITHROMYCIN 250 MG ORAL TABLET 2 po qd x 1 day, then 1 po qd x 4 days 07/12 AZITHROMYCIN 78777596657 No Longer Active Piotr Daley DO Active IBUPROFEN 800 MG ORAL TABLET 1 tab every 8 hours as needed 07/12 IBUPROFEN 08565434283 No Longer Active Piotr Daley DO Active LOMOTIL 2.5-0.025 MG ORAL TABLET 1 to 2 four times a day as needed for diarrhea DIPHENOXYLATE-ATROPINE 31555374731 No Longer Active Piotr W Edi DO Active WARFARIN SODIUM 4 MG ORAL TABLET 1 tab every evening WARFARIN SODIUM 54830046406 No Longer Active Piotr Daley DO Active PREDNISONE 20 MG ORAL TABLET 1 tablet twice daily for 2 days, then 1 tablet once daily for 2 days PREDNISONE 96791261597 No Longer Active Piotr Daley DO Active PROMETHAZINE HCL 25 MG ORAL TABLET 1 four times a day as needed for nausea/ vomiting PROMETHAZINE HCL 22169102228 No Longer Active Piotr Daley DO Active TUSSIONEX PENNKINETIC ER 10-8 MG/5ML ORAL SUSPENSION EXTENDED RELEASE 5ml po q12hr PRN Cough HYDROCOD POLST-CHLORPHEN POLST 41116128896 No Longer Active Piotr Daley DO Active AZITHROMYCIN 250 MG ORAL TABLET 2 po qd x 1 day, then 1 po qd x 4 days 10/13 AZITHROMYCIN 45488422681 No Longer Active Piotr Daley DO Active AZITHROMYCIN 250 MG ORAL TABLET 2 po qd x 1 day, then 1 po qd x 4 days 05/07 AZITHROMYCIN 77629445926 No Longer Active Piotr Daley DO Active LISINOPRIL-HYDROCHLOROTHIAZIDE 10-12.5 MG ORAL TABLET 1 tab by mouth daily LISINOPRIL-HYDROCHLOROTHIAZIDE 53481313804 Active Piotr Daley DO Active LISINOPRIL 10 MG ORAL TABLET 1/2-1 tab po every other day LISINOPRIL 72209189386 No Longer Active Piotr Daley DO Active VENTOLIN HFA 108 (90 Base) MCG/ACT INHALATION AEROSOL SOLUTION 2 puffs four times a day PRN cough ALBUTEROL SULFATE 30275469937 No Longer Active Piotr Daley DO Active NYSTATIN-TRIAMCINOLONE 211800-6.1 UNIT/GM-% EXTERNAL CREAM Apply to area BID NYSTATIN-TRIAMCINOLONE 31021863574 No Longer Active Alnea Chavira CHARGER TESTER Active PHISOHEX 3 % LIQD Use Directed HEXACHLOROPHENE 94405753675 No Longer Active Sandra [place] Active AZITHROMYCIN 250 MG ORAL TABLET 2 po qd x 1 day, then 1 po qd x 4 days 10/21 AZITHROMYCIN 68916404531 No Longer Active Katrina Rinaldi MD PhD Active AZITHROMYCIN 250 MG ORAL TABLET 2 po qd x 1 day, then 1 po qd x 4 days 10/16 AZITHROMYCIN 31128564868 No Longer Active Piotr Daley DO Active AZITHROMYCIN 500 MG INTRAVENOUS SOLUTION RECONSTITUTED 1 po q day AZITHROMYCIN 00296966016 No Longer Active Piotr Daley DO Active NYSTATIN-TRIAMCINOLONE 129580-7.1 UNIT/GM-% EXTERNAL CREAM apply bid NYSTATIN-TRIAMCINOLONE 52853220729 No Longer Active Piotr Daley DO Active IBUPROFEN 800 MG ORAL TABLET 1 po q 8 hours prn pain sparinly IBUPROFEN 50074310533 No Longer Active Piotr Daley DO Active VITAMIN D3 5000 UNIT ORAL CAPSULE 1 po daily CHOLECALCIFEROL 16634019029 Active Piotr Daley DO Active IBUPROFEN 800 MG ORAL TABLET 1 po q 8 hours prn pain sparinly IBUPROFEN 800 MG ORAL TABLET 881039 IBUPROFEN Inactive NYSTATIN-TRIAMCINOLONE 536300-1.1 UNIT/GM-% EXTERNAL CREAM apply bid NYSTATIN-TRIAMCINOLONE 268461-9.1 UNIT/GM-% EXTERNAL CREAM 5144990 NYSTATIN-TRIAMCINOLONE Inactive AZITHROMYCIN 500 MG INTRAVENOUS SOLUTION RECONSTITUTED 1 po q day AZITHROMYCIN 500 MG INTRAVENOUS SOLUTION RECONSTITUTED 48904677619 AZITHROMYCIN Inactive VENTOLIN HFA 108 (90 Base) MCG/ACT INHALATION AEROSOL SOLUTION 2 puffs four times a day PRN cough VENTOLIN HFA 108 (90 Base) MCG/ ACT INHALATION AEROSOL SOLUTION ALBUTEROL SULFATE Inactive LISINOPRIL 10 MG ORAL TABLET 1/2-1 tab po every other day LISINOPRIL 10 MG ORAL TABLET 920549 LISINOPRIL Inactive TUSSIONEX PENNKINETIC ER 10-8 MG/5ML ORAL SUSPENSION EXTENDED RELEASE 5ml po q12hr PRN Cough TUSSIONEX PENNKINETIC ER 10-8 MG/5ML ORAL SUSPENSION EXTENDED RELEASE HYDROCOD POLST-CHLORPHEN POLST Inactive PROMETHAZINE HCL 25 MG ORAL TABLET 1 four times a day as needed for nausea/ vomiting PROMETHAZINE HCL 25 MG ORAL TABLET 477536 PROMETHAZINE HCL Inactive PREDNISONE 20 MG ORAL TABLET 1 tablet twice daily for 2 days, then 1 tablet once daily for 2 days PREDNISONE 20 MG ORAL TABLET 929360 PREDNISONE Inactive WARFARIN SODIUM 4 MG ORAL TABLET 1 tab every evening WARFARIN SODIUM 4 MG ORAL TABLET 940813 WARFARIN SODIUM Inactive LOMOTIL 2.5-0.025 MG ORAL TABLET 1 to 2 four times a day as needed for diarrhea LOMOTIL 2.5-0.025 MG ORAL TABLET 6730427 DIPHENOXYLATE-ATROPINE Inactive IBUPROFEN 800 MG ORAL TABLET 1 tab every 8 hours as needed 07/12 IBUPROFEN 800 MG ORAL TABLET 891744 IBUPROFEN Inactive PREDNISONE 20 MG ORAL TABLET 2 tablets today, then 1 tablet days 2 through 4 PREDNISONE 20 MG ORAL TABLET 645372 PREDNISONE Inactive GABAPENTIN 300 MG ORAL CAPSULE 1 po q hs for nerve pain GABAPENTIN 300 MG ORAL CAPSULE 192523 GABAPENTIN Inactive TRAMADOL HCL 50 MG ORAL TABLET 1 po tid with ES Tylenol TRAMADOL HCL 50 MG ORAL TABLET 180175 TRAMADOL HCL Inactive PROAIR HFA 108 (90 BASE) MCG/ACT INHALATION AEROSOL SOLUTION 1-2 puffs four times a day as needed PROAIR HFA 108 (90 BASE) MCG/ACT INHALATION AEROSOL SOLUTION ALBUTEROL SULFATE Inactive PREDNISONE 20 MG ORAL TABLET two tabs by mouth today, then one tab by mouth days two and three PREDNISONE 20 MG ORAL TABLET 045735 PREDNISONE Inactive TESSALON PERLES 100 MG ORAL CAPSULE 1-2 tablet by mouth 3 times daily 04/16 TESSALON PERLES 100 MG ORAL CAPSULE 808310 BENZONATATE Inactive PREDNISONE 10 MG ORAL TABLET 1 tablet by mouth daily PREDNISONE 10 MG ORAL TABLET 120684 PREDNISONE Inactive AZITHROMYCIN 250 MG ORAL TABLET 2 po qd x 1 day, then 1 po qd x 4 days 10/16 AZITHROMYCIN 250 MG ORAL TABLET 661624 AZITHROMYCIN Inactive AZITHROMYCIN 250 MG ORAL TABLET 2 po qd x 1 day, then 1 po qd x 4 days 10/21 AZITHROMYCIN 250 MG ORAL TABLET 492958 AZITHROMYCIN Inactive NYSTATIN-TRIAMCINOLONE 308387-8.1 UNIT/GM-% EXTERNAL CREAM Apply to area BID NYSTATIN-TRIAMCINOLONE 173773-8.1 UNIT/GM-% EXTERNAL CREAM 9021564 NYSTATIN-TRIAMCINOLONE Inactive AZITHROMYCIN 250 MG ORAL TABLET 2 po qd x 1 day, then 1 po qd x 4 days 05/07 AZITHROMYCIN 250 MG ORAL TABLET 379856 AZITHROMYCIN Inactive AZITHROMYCIN 250 MG ORAL TABLET 2 po qd x 1 day, then 1 po qd x 4 days 10/13 AZITHROMYCIN 250 MG ORAL TABLET 297995 AZITHROMYCIN Inactive AZITHROMYCIN 250 MG ORAL TABLET 2 po qd x 1 day, then 1 po qd x 4 days 07/12 AZITHROMYCIN 250 MG ORAL TABLET 143718 AZITHROMYCIN Inactive PREDNISONE 20 MG ORAL TABLET 2 tabs daily for 3 days, 1 tab daily for 3 days, 1/2 tab daily for 2 days PREDNISONE 20 MG ORAL TABLET 781952 PREDNISONE Inactive DOXYCYCLINE HYCLATE 100 MG ORAL CAPSULE 1 cap by mouth BID x10 days DOXYCYCLINE HYCLATE 100 MG ORAL CAPSULE 5443111 DOXYCYCLINE HYCLATE Inactive ZITHROMAX 250 MG ORAL TABLET Take two (2 ) tablets day one, then one (1) tablet a day for four (4) more days ZITHROMAX 250 MG ORAL TABLET 940160 AZITHROMYCIN Inactive Advance Directives Directive Description Start [...] Measured Encounters Code Encounter Date Provider Facility CPT-35714 Level 3 Est. Patient 15:59:25 POWER ELECTRONICS RESEARCH ENGINEER Piotr Daley [facility] CPT-56280 Level 3 Est. Patient 12:33:59 POWER ELECTRONICS RESEARCH ENGINEER Piotr Daley [facility] CPT-84874 Level 3 Est. Patient 15:56:17 POWER ELECTRONICS RESEARCH ENGINEER Piotr Daley [facility] CPT-84892 Level 3 Est. Patient 10:34:54 POWER ELECTRONICS RESEARCH ENGINEER Piotr Daley [facility] CPT-16485 Level 3 Est. Patient 17:10:19 MALACHI Harris APRN [facility] CPT-39678 Level 3 Est. Patient 10:48:17 POWER ELECTRONICS RESEARCH ENGINEER Matthew Rangel MD [facility] CPT-79649 Level 4 Est. Patient 17:15:07 POWER ELECTRONICS RESEARCH ENGINEER Piotr Daley [facility] CPT-54259 Level 3 Est. Patient 12:46:13 POWER ELECTRONICS RESEARCH ENGINEER Piotr Daley [facility] CPT-64230 Level 3 Est. Patient 15:14:31 POWER ELECTRONICS RESEARCH ENGINEER Piotr Daley [facility] CPT-13704 Level 3 Est. Patient 09:20:13 POWER ELECTRONICS RESEARCH ENGINEER Piotr Daley [facility] CPT-78493 Level 3 Est. Patient 09:49:40 CDT Piotr Daley [facility] CPT-18167 Level 3 Est. Patient 16:28:11 CDT Piotr Daley [facility] CPT-50673 Level 3 Est. Patient 12:41:58 POWER ELECTRONICS RESEARCH ENGINEER Piotr Daley [facility] CPT-23564 Level 3 Est. Patient 09:21:24 CDT Piotr Daley [facility] CPT-12163 Level 3 Est. Patient 09:21:11 CDT Piotr Daley [facility] CPT-90908 Level 3 Est. Patient 11:16:29 POWER ELECTRONICS RESEARCH ENGINEER Piotr Daley [facility] CPT-71762 Level 3 Est. Patient 18:40:19 POWER ELECTRONICS RESEARCH ENGINEER Piotr Daley [facility] CPT-22392 Level 3 Est. Patient 19:30:50 CDT Piotr Daley [facility] CPT-07237 Level 3 Est. Patient 22:06:44 CDT Katrina Rinaldi MD PhD [facility] CPT-36916 Level 3 Est. Patient 14:20:00 CDT Piotr Daley [facility] CPT-28127 Level 3 Est. Patient 14:15:22 POWER ELECTRONICS RESEARCH ENGINEER Piotr Daley [facility] CPT-53067 Level 3 Est. Patient 20:19:57 POWER ELECTRONICS RESEARCH ENGINEER Piotr Daley [facility] CPT-04071 Level 3 Est. Patient 16:44:32 CDT Piotr Daley [facility] CPT-36566 Level 3 Est. Patient 08:48:46 POWER ELECTRONICS RESEARCH ENGINEER Piotr Daley [facility] CPT-45521 Level 3 Est. Patient 21:01:21 CDT Piotr Daley [facility] Procedures Code Procedure Name Date Entry Date Standard Description CPT-47353 Sacroiliac jt < 3V - XRAY USE ONLY 16:45:19 POWER ELECTRONICS RESEARCH ENGINEER 05/09 CPT-82659 LS spine comp w obliques - XRAY USE ONLY 14:52:26 POWER ELECTRONICS RESEARCH ENGINEER CPT-60299 Chest, 2 views 12:55:58 POWER ELECTRONICS RESEARCH ENGINEER CPT-G0439 Subsequent Annual Wellness Exam 10:34:52 POWER ELECTRONICS RESEARCH ENGINEER CPT-64375 BMP - LAB USE ONLY 17:19:11 POWER ELECTRONICS RESEARCH ENGINEER CPT-98709 PT/INR - LAB USE ONLY 17:19:10 [facility] CPT-26025 Venipuncture Draw Fee 17:19:10 [facility] CPT-40310 PT/INR - LAB USE ONLY 08:12:25 POWER ELECTRONICS RESEARCH ENGINEER CPT-17076 Venipuncture Draw Fee 08:12:24 POWER ELECTRONICS RESEARCH ENGINEER CPT-44586 Venipuncture Draw Fee 11:31:07 POWER ELECTRONICS RESEARCH ENGINEER CPT-96315 [facility]PS[facility] - LAB USE ONLY 11:31:07 POWER ELECTRONICS RESEARCH ENGINEER CPT-23848 PT/INR - LAB USE ONLY 11:31:07 POWER ELECTRONICS RESEARCH ENGINEER CPT-G0439 Subsequent Annual Wellness Exam 09:59:29 POWER ELECTRONICS RESEARCH ENGINEER CPT-99916 Creatinine - LAB USE ONLY 14:37:55 POWER ELECTRONICS RESEARCH ENGINEER CPT-14808 PT/INR - LAB USE ONLY 14:37:55 POWER ELECTRONICS RESEARCH ENGINEER CPT-70574 Venipuncture Draw Fee 14:37:55 POWER ELECTRONICS RESEARCH ENGINEER CPT-16554 LS spine comp w obliques - XRAY USE ONLY 12:59:25 POWER ELECTRONICS RESEARCH ENGINEER CPT-03724 PT/INR - LAB USE ONLY 13:49:20 CDT CPT-99401 Venipuncture Draw Fee 13:49:19 CDT CPT-46045 PT/INR - LAB USE ONLY 15:48:49 CDT CPT-47841 Venipuncture Draw Fee 15:48:49 CDT CPT-69476 Venipuncture Draw Fee 11:31:59 CDT CPT-17170 PT/INR - LAB USE ONLY 11:31:59 CDT CPT-56453 Venipuncture Draw Fee 13:29:15 CDT CPT-96980 Thoracolumbar AP/Lat 15:19:19 POWER ELECTRONICS RESEARCH ENGINEER CPT-G0438 Initial Annual Wellness Exam 12:18:54 POWER ELECTRONICS RESEARCH ENGINEER CPT-51563 Knee 3V 09:57:38 CDT CPT-OV Office Visit 15:45:01 POWER ELECTRONICS RESEARCH ENGINEER CPT-32495 Abd compl w upright 17:10:25 CDT
--- OUTSIDE RECORDS SUMMARY | 2018-07-18 09:22 | XMS REPORT | Clinical Summary ---
Author Author Admin, Bita Organization [employer] Address Unknown Phone Unavailable Allergies, Adverse Reactions, [...] Coronary atherosclerosis of unspecified type of vessel, [place] or graft Back pain, thoracic region, left [...] Knee pain, left ICD-719.46 Inactive Sirisha Chen [employer] Actinic keratoses ICD-702.0 Inactive Sirisha Chen [employer] Back pain, thoracic region, left ICD-724.1 Inactive Piotr Daley DO Thoracic back pain ICD-724.5 Inactive Sirisha Chen [employer] Back pain lumbar ICD-724.2 Inactive Sirisha Chen [employer] Insect bite ICD-919.4 Inactive Sirisha Chen [employer] Pruritus ICD-698.9 Inactive Sirisha Chen [employer] 04/09 Bronchitis-Acute ICD-466.0 Inactive Sirisha Chen [employer] Dyspnea ICD-786.09 Inactive Sirisha Chen [employer] 05/09 Medication List Medication Instructions Start Date Stop Date Generic Name NDC Status Provider Patient Instruction WARFARIN SODIUM 4 MG ORAL TABLET 1 tablet by mouth daily WARFARIN SODIUM 04839682772 Active Sirisha Chen [employer] Active MELOXICAM 15 MG ORAL TABLET 1 po q day for pain with food MELOXICAM 79055980892 Active Piotr Daley DO Active PREDNISONE 10 MG ORAL TABLET 1 tablet by mouth daily PREDNISONE 57682260526 No Longer Active Emelyn Norris Active TESSALON PERLES 100 MG ORAL CAPSULE 1-2 tablet by mouth 3 times daily 04/16 BENZONATATE 28710005830 No Longer Active Emelyn Norris Active PREDNISONE 20 MG ORAL TABLET two tabs by mouth today, then one tab by mouth days two and three PREDNISONE 82904199197 No Longer Active Piotr Daley DO Active CYCLOBENZAPRINE HCL 10 MG ORAL TABLET 1 tablet by mouth three times daily as needed for muscle spasm/pain CYCLOBENZAPRINE HCL 82515497822 Active Sirisha Chen LPN Active ZITHROMAX 250 MG ORAL TABLET Take two (2 ) tablets day one, then one (1) tablet a day for four (4) more days AZITHROMYCIN 52836204016 No Longer Active Piotr Daley DO Active PROAIR HFA 108 (90 BASE) MCG/ACT INHALATION AEROSOL SOLUTION 1-2 puffs four times a day as needed ALBUTEROL SULFATE 28651551032 No Longer Active Emelyn Norris Active DOXYCYCLINE HYCLATE 100 MG ORAL CAPSULE 1 cap by mouth BID x10 days DOXYCYCLINE HYCLATE 31113315897 No Longer Active Nella Harris APRN Active PREDNISONE 20 MG ORAL TABLET 2 tabs daily for 3 days, 1 tab daily for 3 days, 1/2 tab daily for 2 days PREDNISONE 25977983474 No Longer Active Matthew Rangel MD Active TRAMADOL HCL 50 MG ORAL TABLET 1 po tid with ES Tylenol TRAMADOL HCL 02724137193 No Longer Active Matthew Rangel MD Active GABAPENTIN 300 MG ORAL CAPSULE 1 po q hs for nerve pain GABAPENTIN 55599972402 No Longer Active Matthew Rangel MD Active PREDNISONE 20 MG ORAL TABLET 2 tablets today, then 1 tablet days 2 through 4 PREDNISONE 12247844735 No Longer Active Piotr Daley DO Active AZITHROMYCIN 250 MG ORAL TABLET 2 po qd x 1 day, then 1 po qd x 4 days 07/12 AZITHROMYCIN 55341527095 No Longer Active Piotr Daley DO Active IBUPROFEN 800 MG ORAL TABLET 1 tab every 8 hours as needed 07/12 IBUPROFEN 43783634970 No Longer Active Piotr Daley DO Active LOMOTIL 2.5-0.025 MG ORAL TABLET 1 to 2 four times a day as needed for diarrhea DIPHENOXYLATE-ATROPINE 95650652129 No Longer Active Piotr W Edi DO Active WARFARIN SODIUM 4 MG ORAL TABLET 1 tab every evening WARFARIN SODIUM 64748734669 No Longer Active Piotr Daley DO Active PREDNISONE 20 MG ORAL TABLET 1 tablet twice daily for 2 days, then 1 tablet once daily for 2 days PREDNISONE 07375480283 No Longer Active Piotr Daley DO Active PROMETHAZINE HCL 25 MG ORAL TABLET 1 four times a day as needed for nausea/ vomiting PROMETHAZINE HCL 50189392012 No Longer Active Piotr Daley DO Active TUSSIONEX PENNKINETIC ER 10-8 MG/5ML ORAL SUSPENSION EXTENDED RELEASE 5ml po q12hr PRN Cough HYDROCOD POLST-CHLORPHEN POLST 89116248905 No Longer Active Poitr Daley DO Active AZITHROMYCIN 250 MG ORAL TABLET 2 po qd x 1 day, then 1 po qd x 4 days 10/13 AZITHROMYCIN 21558899961 No Longer Active Piotr Daley DO Active AZITHROMYCIN 250 MG ORAL TABLET 2 po qd x 1 day, then 1 po qd x 4 days 05/07 AZITHROMYCIN 56784774934 No Longer Active Piotr Daley DO Active LISINOPRIL-HYDROCHLOROTHIAZIDE 10-12.5 MG ORAL TABLET 1 tab by mouth daily LISINOPRIL-HYDROCHLOROTHIAZIDE 84076009591 Active Piotr Daley DO Active LISINOPRIL 10 MG ORAL TABLET 1/2-1 tab po every other day LISINOPRIL 63404033285 No Longer Active Piotr Daley DO Active VENTOLIN HFA 108 (90 Base) MCG/ACT INHALATION AEROSOL SOLUTION 2 puffs four times a day PRN cough ALBUTEROL SULFATE 46020018094 No Longer Active Piotr Daley DO Active NYSTATIN-TRIAMCINOLONE 615381-0.1 UNIT/GM-% EXTERNAL CREAM Apply to area BID NYSTATIN-TRIAMCINOLONE 12763240320 No Longer Active Alena Chavira [employer] Active PHISOHEX 3 % LIQD Use Directed HEXACHLOROPHENE 72957499034 No Longer Active Sandra [place] Active AZITHROMYCIN 250 MG ORAL TABLET 2 po qd x 1 day, then 1 po qd x 4 days 10/21 AZITHROMYCIN 45435529921 No Longer Active Katrina Rinaldi MD PhD Active AZITHROMYCIN 250 MG ORAL TABLET 2 po qd x 1 day, then 1 po qd x 4 days 10/16 AZITHROMYCIN 24101912332 No Longer Active Piotr Daley DO Active AZITHROMYCIN 500 MG INTRAVENOUS SOLUTION RECONSTITUTED 1 po q day AZITHROMYCIN 94126185309 No Longer Active Piotr Daley DO Active NYSTATIN-TRIAMCINOLONE 091122-0.1 UNIT/GM-% EXTERNAL CREAM apply bid NYSTATIN-TRIAMCINOLONE 24484230615 No Longer Active Piotr Daley DO Active IBUPROFEN 800 MG ORAL TABLET 1 po q 8 hours prn pain sparinly IBUPROFEN 53738480524 No Longer Active Piotr Daley DO Active VITAMIN D3 5000 UNIT ORAL CAPSULE 1 po daily CHOLECALCIFEROL 21556167400 Active Piotr Daley DO Active IBUPROFEN 800 MG ORAL TABLET 1 po q 8 hours prn pain sparinly IBUPROFEN 800 MG ORAL TABLET 254382 IBUPROFEN Inactive NYSTATIN-TRIAMCINOLONE 622520-3.1 UNIT/GM-% EXTERNAL CREAM apply bid NYSTATIN-TRIAMCINOLONE 319237-4.1 UNIT/GM-% EXTERNAL CREAM 2851119 NYSTATIN-TRIAMCINOLONE Inactive AZITHROMYCIN 500 MG INTRAVENOUS SOLUTION RECONSTITUTED 1 po q day AZITHROMYCIN 500 MG INTRAVENOUS SOLUTION RECONSTITUTED 49056465390 AZITHROMYCIN Inactive VENTOLIN HFA 108 (90 Base) MCG/ACT INHALATION AEROSOL SOLUTION 2 puffs four times a day PRN cough VENTOLIN HFA 108 (90 Base) MCG/ ACT INHALATION AEROSOL SOLUTION ALBUTEROL SULFATE Inactive LISINOPRIL 10 MG ORAL TABLET 1/2-1 tab po every other day LISINOPRIL 10 MG ORAL TABLET 257740 LISINOPRIL Inactive TUSSIONEX PENNKINETIC ER 10-8 MG/5ML ORAL SUSPENSION EXTENDED RELEASE 5ml po q12hr PRN Cough TUSSIONEX PENNKINETIC ER 10-8 MG/5ML ORAL SUSPENSION EXTENDED RELEASE HYDROCOD POLST-CHLORPHEN POLST Inactive PROMETHAZINE HCL 25 MG ORAL TABLET 1 four times a day as needed for nausea/ vomiting PROMETHAZINE HCL 25 MG ORAL TABLET 628511 PROMETHAZINE HCL Inactive PREDNISONE 20 MG ORAL TABLET 1 tablet twice daily for 2 days, then 1 tablet once daily for 2 days PREDNISONE 20 MG ORAL TABLET 161472 PREDNISONE Inactive WARFARIN SODIUM 4 MG ORAL TABLET 1 tab every evening WARFARIN SODIUM 4 MG ORAL TABLET 744847 WARFARIN SODIUM Inactive LOMOTIL 2.5-0.025 MG ORAL TABLET 1 to 2 four times a day as needed for diarrhea LOMOTIL 2.5-0.025 MG ORAL TABLET 3484469 DIPHENOXYLATE-ATROPINE Inactive IBUPROFEN 800 MG ORAL TABLET 1 tab every 8 hours as needed 07/12 IBUPROFEN 800 MG ORAL TABLET 033653 IBUPROFEN Inactive PREDNISONE 20 MG ORAL TABLET 2 tablets today, then 1 tablet days 2 through 4 PREDNISONE 20 MG ORAL TABLET 564657 PREDNISONE Inactive GABAPENTIN 300 MG ORAL CAPSULE 1 po q hs for nerve pain GABAPENTIN 300 MG ORAL CAPSULE 658989 GABAPENTIN Inactive TRAMADOL HCL 50 MG ORAL TABLET 1 po tid with ES Tylenol TRAMADOL HCL 50 MG ORAL TABLET 104410 TRAMADOL HCL Inactive PROAIR HFA 108 (90 BASE) MCG/ACT INHALATION AEROSOL SOLUTION 1-2 puffs four times a day as needed PROAIR HFA 108 (90 BASE) MCG/ACT INHALATION AEROSOL SOLUTION ALBUTEROL SULFATE Inactive PREDNISONE 20 MG ORAL TABLET two tabs by mouth today, then one tab by mouth days two and three PREDNISONE 20 MG ORAL TABLET 240828 PREDNISONE Inactive TESSALON PERLES 100 MG ORAL CAPSULE 1-2 tablet by mouth 3 times daily 04/16 TESSALON PERLES 100 MG ORAL CAPSULE 285188 BENZONATATE Inactive PREDNISONE 10 MG ORAL TABLET 1 tablet by mouth daily PREDNISONE 10 MG ORAL TABLET 574574 PREDNISONE Inactive AZITHROMYCIN 250 MG ORAL TABLET 2 po qd x 1 day, then 1 po qd x 4 days 10/16 AZITHROMYCIN 250 MG ORAL TABLET 727709 AZITHROMYCIN Inactive AZITHROMYCIN 250 MG ORAL TABLET 2 po qd x 1 day, then 1 po qd x 4 days 10/21 AZITHROMYCIN 250 MG ORAL TABLET 387341 AZITHROMYCIN Inactive NYSTATIN-TRIAMCINOLONE 645649-0.1 UNIT/GM-% EXTERNAL CREAM Apply to area BID NYSTATIN-TRIAMCINOLONE 163660-7.1 UNIT/GM-% EXTERNAL CREAM 3625983 NYSTATIN-TRIAMCINOLONE Inactive AZITHROMYCIN 250 MG ORAL TABLET 2 po qd x 1 day, then 1 po qd x 4 days 05/07 AZITHROMYCIN 250 MG ORAL TABLET 335727 AZITHROMYCIN Inactive AZITHROMYCIN 250 MG ORAL TABLET 2 po qd x 1 day, then 1 po qd x 4 days 10/13 AZITHROMYCIN 250 MG ORAL TABLET 870347 AZITHROMYCIN Inactive AZITHROMYCIN 250 MG ORAL TABLET 2 po qd x 1 day, then 1 po qd x 4 days 07/12 AZITHROMYCIN 250 MG ORAL TABLET 514977 AZITHROMYCIN Inactive PREDNISONE 20 MG ORAL TABLET 2 tabs daily for 3 days, 1 tab daily for 3 days, 1/2 tab daily for 2 days PREDNISONE 20 MG ORAL TABLET 987629 PREDNISONE Inactive DOXYCYCLINE HYCLATE 100 MG ORAL CAPSULE 1 cap by mouth BID x10 days DOXYCYCLINE HYCLATE 100 MG ORAL CAPSULE 9204673 DOXYCYCLINE HYCLATE Inactive ZITHROMAX 250 MG ORAL TABLET Take two (2 ) tablets day one, then one (1) tablet a day for four (4) more days ZITHROMAX 250 MG ORAL TABLET 776614 AZITHROMYCIN Inactive Advance Directives Directive Description Start [...] Measured Encounters Code Encounter Date Provider Facility CPT-04292 Level 3 Est. Patient 15:59:25 ROLL FORMING MACHINE OPERATOR Poitr Daley [facility] CPT-82452 Level 3 Est. Patient 12:33:59 ROLL FORMING MACHINE OPERATOR Piotr Daley [facility] CPT-10047 Level 3 Est. Patient 15:56:17 ROLL FORMING MACHINE OPERATOR Poitr Daley [facility] CPT-68272 Level 3 Est. Patient 10:34:54 ROLL FORMING MACHINE OPERATOR Piotr Daley [facility] CPT-08160 Level 3 Est. Patient 17:10:19 MALACHI Harris APRN [facility] CPT-06474 Level 3 Est. Patient 10:48:17 ROLL FORMING MACHINE OPERATOR Matthew Rangel MD [facility] CPT-09361 Level 4 Est. Patient 17:15:07 ROLL FORMING MACHINE OPERATOR Piotr Daley [facility] CPT-85998 Level 3 Est. Patient 12:46:13 ROLL FORMING MACHINE OPERATOR Piotr Daley [facility] CPT-37880 Level 3 Est. Patient 15:14:31 ROLL FORMING MACHINE OPERATOR Piotr Daley [facility] CPT-27867 Level 3 Est. Patient 09:20:13 ROLL FORMING MACHINE OPERATOR Piotr Daley [facility] CPT-09768 Level 3 Est. Patient 09:49:40 CDT Piotr Daley [facility] CPT-87207 Level 3 Est. Patient 16:28:11 CDT Piotr Daley [facility] CPT-03316 Level 3 Est. Patient 12:41:58 ROLL FORMING MACHINE OPERATOR Piotr Daley [facility] CPT-77090 Level 3 Est. Patient 09:21:24 CDT Piotr Daley [facility] CPT-66273 Level 3 Est. Patient 09:21:11 CDT Piotr Daley [facility] CPT-09963 Level 3 Est. Patient 11:16:29 ROLL FORMING MACHINE OPERATOR Piotr Daley [facility] CPT-67633 Level 3 Est. Patient 18:40:19 ROLL FORMING MACHINE OPERATOR Piotr Daley [facility] CPT-71811 Level 3 Est. Patient 19:30:50 CDT Piotr Daley [facility] CPT-85464 Level 3 Est. Patient 22:06:44 CDT Katrina Rinaldi MD PhD [facility] CPT-17894 Level 3 Est. Patient 14:20:00 CDT Piotr Daley [facility] CPT-39893 Level 3 Est. Patient 14:15:22 ROLL FORMING MACHINE OPERATOR Piotr Daley [facility] CPT-66491 Level 3 Est. Patient 20:19:57 ROLL FORMING MACHINE OPERATOR Piotr Daley [facility] CPT-73825 Level 3 Est. Patient 16:44:32 CDT Piotr Daley [facility] CPT-48815 Level 3 Est. Patient 08:48:46 ROLL FORMING MACHINE OPERATOR Piotr Daley [facility] CPT-11867 Level 3 Est. Patient 21:01:21 CDT Piotr Daley [facility] Procedures Code Procedure Name Date Entry Date Standard Description CPT-27384 Sacroiliac jt < 3V - XRAY USE ONLY 16:45:19 ROLL FORMING MACHINE OPERATOR 05/09 CPT-59959 LS spine comp w obliques - XRAY USE ONLY 14:52:26 ROLL FORMING MACHINE OPERATOR CPT-97724 Chest, 2 views 12:55:58 ROLL FORMING MACHINE OPERATOR CPT-G0439 Subsequent Annual Wellness Exam 10:34:52 ROLL FORMING MACHINE OPERATOR CPT-84147 BMP - LAB USE ONLY 17:19:11 ROLL FORMING MACHINE OPERATOR CPT-86544 PT/INR - LAB USE ONLY 17:19:10 [facility] CPT-52092 Venipuncture Draw Fee 17:19:10 [facility] CPT-79811 PT/INR - LAB USE ONLY 08:12:25 ROLL FORMING MACHINE OPERATOR CPT-22018 Venipuncture Draw Fee 08:12:24 ROLL FORMING MACHINE OPERATOR CPT-63819 Venipuncture Draw Fee 11:31:07 ROLL FORMING MACHINE OPERATOR CPT-68738 TPSA - LAB USE ONLY 11:31:07 ROLL FORMING MACHINE OPERATOR CPT-31639 PT/INR - LAB USE ONLY 11:31:07 ROLL FORMING MACHINE OPERATOR CPT-G0439 Subsequent Annual Wellness Exam 09:59:29 ROLL FORMING MACHINE OPERATOR CPT-75318 Creatinine - LAB USE ONLY 14:37:55 ROLL FORMING MACHINE OPERATOR CPT-36717 PT/INR - LAB USE ONLY 14:37:55 ROLL FORMING MACHINE OPERATOR CPT-69532 Venipuncture Draw Fee 14:37:55 ROLL FORMING MACHINE OPERATOR CPT-17268 LS spine comp w obliques - XRAY USE ONLY 12:59:25 ROLL FORMING MACHINE OPERATOR CPT-23761 PT/INR - LAB USE ONLY 13:49:20 CDT CPT-97449 Venipuncture Draw Fee 13:49:19 CDT CPT-83601 PT/INR - LAB USE ONLY 15:48:49 CDT CPT-58812 Venipuncture Draw Fee 15:48:49 CDT CPT-49297 Venipuncture Draw Fee 11:31:59 CDT CPT-82859 PT/INR - LAB USE ONLY 11:31:59 CDT CPT-82437 Venipuncture Draw Fee 13:29:15 CDT CPT-80736 Thoracolumbar AP/Lat 15:19:19 ROLL FORMING MACHINE OPERATOR CPT-G0438 Initial Annual Wellness Exam 12:18:54 ROLL FORMING MACHINE OPERATOR CPT-62877 Knee 3V 09:57:38 CDT CPT-OV Office Visit 15:45:01 ROLL FORMING MACHINE OPERATOR CPT-74649 Abd compl w upright 17:10:25 CDT
--- OUTSIDE RECORDS SUMMARY | 2018-07-18 09:24 | XMS REPORT | Clinical Summary ---
Author Author Admin, E Organization [employer] Address Unknown Phone Unavailable Allergies, Adverse Reactions, [...] Coronary atherosclerosis of unspecified type of vessel, [place] or graft Back pain, thoracic region, left [...] MG TABS 1 tablet daily WARFARIN SODIUM 28630903384 Active Emelyn Goode RPT,RMA Active TRAMADOL HCL 50 MG TABS 1 po tid with ES Tylenol TRAMADOL HCL 75830302276 Active Piotr Daley DO Active PREDNISONE 20 MG TAB 2 tablets today, then 1 tablet days 2 through 4 PREDNISONE 69637860925 No Longer Active Piotr Daley DO Active AZITHROMYCIN 250 MG TABS 2 po qd x 1 day, then 1 po qd x 4 days AZITHROMYCIN 59610051983 No Longer Active Piotr Daley DO Active IBUPROFEN 800 MG TABS 1 tab every 8 hours as needed IBUPROFEN 02028814764 No Longer Active Piotr Daley DO Active LOMOTIL 2.5-0.025 MG TAB 1 to 2 four times a day as needed for diarrhea 10/13 DIPHENOXYLATE-ATROPINE 25352032138 No Longer Active Piotr Daley DO Active WARFARIN SODIUM 4 MG TABS 1 tab every evening WARFARIN SODIUM 87337175133 No Longer Active Piotr Daley DO Active PREDNISONE 20 MG TAB 1 tablet twice daily for 2 days, then 1 tablet once daily for 2 days PREDNISONE 17339729004 No Longer Active Piotr Daley DO Active PROMETHAZINE HCL 25 MG TABS 1 four times a day as needed for nausea/vomiting PROMETHAZINE HCL 47818697559 No Longer Active Piort Daley DO Active TUSSIONEX PENNKINETIC ER 10-8 MG/5ML LQCR 5ml po q12hr PRN Cough HYDROCOD POLST-CHLORPHEN POLST 83097606055 No Longer Active Piotr W Edi DO Active AZITHROMYCIN 250 MG TABS 2 po qd x 1 day, then 1 po qd x 4 days AZITHROMYCIN 72809046038 No Longer Active Piotr Daley DO Active AZITHROMYCIN 250 MG TABS 2 po qd x 1 day, then 1 po qd x 4 days AZITHROMYCIN 98543281209 No Longer Active Piotr Daley DO Active LISINOPRIL-HYDROCHLOROTHIAZIDE 10-12.5 MG TABS 1 tab by mouth daily LISINOPRIL-HYDROCHLOROTHIAZIDE 62185709569 Active Hilary Ma MA Active LISINOPRIL 10 MG TABS 1/2-1 tab po every other day LISINOPRIL 80551777283 No Longer Active Piotr Daley DO Active VENTOLIN HFA 108 (90 BASE) MCG/ACT AERS 2 puffs four times a day PRN cough ALBUTEROL SULFATE 85885166451 No Longer Active Piotr Daley DO Active NYSTATIN-TRIAMCINOLONE 102095-5.1 UNIT/GM-% CREA Apply to area BID NYSTATIN-TRIAMCINOLONE 26487766351 No Longer Active Alena Oswaldum PL[employer] CUTTER Active PHISOHEX 3 % LIQD Use Directed HEXACHLOROPHENE 98791301640 No Longer Active Sandra Randolph Active AZITHROMYCIN 250 MG TABS 2 po qd x 1 day, then 1 po qd x 4 days AZITHROMYCIN 50818589104 No Longer Active Katrina Rinaldi MD PhD Active AZITHROMYCIN 250 MG TABS 2 po qd x 1 day, then 1 po qd x 4 days AZITHROMYCIN 41566678758 No Longer Active Piotr Daley DO Active AZITHROMYCIN 500 MG SOLR 1 po q day AZITHROMYCIN 66057781949 No Longer Active Piotr Daley DO Active NYSTATIN-TRIAMCINOLONE 414844-7.1 UNIT/GM-% CREA apply bid 08/19 NYSTATIN-TRIAMCINOLONE 23287532804 No Longer Active Piotr Daley DO Active IBUPROFEN 800 MG TABS 1 po q 8 hours prn pain sparinly IBUPROFEN 63544522683 No Longer Active Piotr Daley DO Active VITAMIN D3 5000 UNIT CAPS 1 po daily CHOLECALCIFEROL 74227996673 Active Piotr Daley DO Active IBUPROFEN 800 MG TABS 1 po q 8 hours prn pain sparinly IBUPROFEN 800 MG TABS 716285 IBUPROFEN Inactive NYSTATIN-TRIAMCINOLONE 706529-3.1 UNIT/GM-% CREA apply bid 08/19 NYSTATIN-TRIAMCINOLONE 704674-3.1 UNIT/GM-% CREA 1694611 NYSTATIN- TRIAMCINOLONE Inactive AZITHROMYCIN 500 MG SOLR 1 po q day AZITHROMYCIN 500 MG SOLR 33874936403 AZITHROMYCIN Inactive VENTOLIN HFA 108 (90 BASE) MCG/ACT AERS 2 puffs four times a day PRN cough VENTOLIN HFA 108 (90 BASE) MCG/ACT AERS ALBUTEROL SULFATE Inactive LISINOPRIL 10 MG TABS 1/2-1 tab po every other day LISINOPRIL 10 MG TABS 254264 LISINOPRIL Inactive TUSSIONEX PENNKINETIC ER 10-8 MG/5ML LQCR 5ml po q12hr PRN Cough TUSSIONEX PENNKINETIC ER 10-8 MG/5ML LQCR HYDROCOD POLST- CHLORPHEN POLST Inactive PROMETHAZINE HCL 25 MG TABS 1 four times a day as needed for nausea/vomiting PROMETHAZINE HCL 25 MG TABS 463640 PROMETHAZINE HCL Inactive PREDNISONE 20 MG TAB 1 tablet twice daily for 2 days, then 1 tablet once daily for 2 days PREDNISONE 20 MG TAB 624836 PREDNISONE Inactive WARFARIN SODIUM 4 MG TABS 1 tab every evening WARFARIN SODIUM 4 MG TABS 264026 WARFARIN SODIUM Inactive LOMOTIL 2.5-0.025 MG TAB 1 to 2 four times a day as needed for diarrhea 10/13 LOMOTIL 2.5-0.025 MG TAB 7666269 DIPHENOXYLATE-ATROPINE Inactive IBUPROFEN 800 MG TABS 1 tab every 8 hours as needed IBUPROFEN 800 MG TABS 446435 IBUPROFEN Inactive PREDNISONE 20 MG TAB 2 tablets today, then 1 tablet days 2 through 4 PREDNISONE 20 MG TAB 392056 PREDNISONE Inactive AZITHROMYCIN 250 MG TABS 2 po qd x 1 day, then 1 po qd x 4 days AZITHROMYCIN 250 MG TABS 4778108 AZITHROMYCIN Inactive AZITHROMYCIN 250 MG TABS 2 po qd x 1 day, then 1 po qd x 4 days AZITHROMYCIN 250 MG TABS 5415917 AZITHROMYCIN Inactive NYSTATIN-TRIAMCINOLONE 786151-4.1 UNIT/GM-% CREA Apply to area BID NYSTATIN-TRIAMCINOLONE 886781-9.1 UNIT/GM-% CREA 1267229 NYSTATIN-TRIAMCINOLONE Inactive AZITHROMYCIN 250 MG TABS 2 po qd x 1 day, then 1 po qd x 4 days AZITHROMYCIN 250 MG TABS 9505863 AZITHROMYCIN Inactive AZITHROMYCIN 250 MG TABS 2 po qd x 1 day, then 1 po qd x 4 days AZITHROMYCIN 250 MG TABS 3763001 AZITHROMYCIN Inactive AZITHROMYCIN 250 MG TABS 2 po qd x 1 day, then 1 po qd x 4 days AZITHROMYCIN 250 MG TABS 8879028 AZITHROMYCIN Inactive Advance Directives Directive Description Start [...] Panel - Chemistry sodium, serum 141 mmol/L 587-725 4655/06/28 carbon dioxide, venous blood 31.0 mmol/L 21.0-32.0 [...] Negative Encounters Code Encounter Date Provider Facility CPT-71601 Level 3 Est. Patient 15:14:31 SCREEN OPERATOR Piotr Daley [facility] CPT-44632 Level 3 Est. Patient 09:20:13 SCREEN OPERATOR Piotr Daley [facility] CPT-89997 Level 3 Est. Patient 09:49:40 CDT Piotr [facility] CPT-33456 Level 3 Est. Patient 16:28:11 CDT Piotr Daley [facility] CPT-01476 Level 3 Est. Patient 12:41:58 SCREEN OPERATOR Piotr Daley [facility] CPT-79620 Level 3 Est. Patient 09:21:24 CDT Piotr Daley [facility] CPT-50677 Level 3 Est. Patient 09:21:11 CDT Piotr Daley [facility] CPT-21200 Level 3 Est. Patient 11:16:29 SCREEN OPERATOR Piotr Daley [facility] CPT-75958 Level 3 Est. Patient 18:40:19 SCREEN OPERATOR Piotr Daley [facility] CPT-57760 Level 3 Est. Patient 19:30:50 CDT Piotr Daley [facility] CPT-48457 Level 3 Est. Patient 22:06:44 CDT Katrina Rinaldi MD PhD [facility] CPT-77047 Level 3 Est. Patient 14:20:00 CDT Piotr Daley [facility] CPT-20845 Level 3 Est. Patient 14:15:22 SCREEN OPERATOR Piotr Daley [facility] CPT-67070 Level 3 Est. Patient 20:19:57 SCREEN OPERATOR Piotr Daley [facility] CPT-06036 Level 3 Est. Patient 16:44:32 CDT Piotr Katie Daley [facility] CPT-81129 Level 3 Est. Patient 08:48:46 SCREEN OPERATOR Piotr Wilson Edi [facility] CPT-17687 Level 3 Est. Patient 21:01:21 CDT Piotr Katie Edi [facility] Procedures Code Procedure Name Date Entry Date Standard Description CPT-28494 PT/INR - LAB USE ONLY 15:48:49 CDT CPT-02055 Venipuncture Draw Fee 15:48:49 CDT CPT-53205 Venipuncture Draw Fee 11:31:59 CDT CPT-33605 PT/INR - LAB USE ONLY 11:31:59 CDT CPT-38205 Venipuncture Draw Fee 13:29:15 CDT CPT-62084 Thoracolumbar AP/Lat 15:19:19 SCREEN OPERATOR CPT-G0438 Initial Annual Wellness Exam 12:18:54 SCREEN OPERATOR CPT-55499 Knee 3V 09:57:38 CDT CPT-OV Office Visit 15:45:01 SCREEN OPERATOR CPT-83531 Abd compl w upright 17:10:25 CDT
--- OUTSIDE RECORDS SUMMARY | 2018-07-18 09:24 | XMS REPORT | Clinical Summary ---
Author Author Admin, [employer] Address Unknown Phone Unavailable Allergies, Adverse Reactions, [...] of prostate HEALTH MAINTENANCE EXAM V70.0 Resolved Katirna Rinaldi MD PhD Routine general medical examination [...] neoplasm of prostate V10.46 Active Alina Meyers MEDICINE WORKER Personal history of malignant neoplasm of prostate Coronary artery disease 414.00 Active Alina Meyers APRN Coronary atherosclerosis of unspecified type of vessel, wales or graft Back pain, thoracic region, left [...] health care facility Bronchitis-Acute 466.0 Resolved Emelyn Rodriguezwillbiat Acute bronchitis Dyspnea 786.09 Resolved Emelyn Norris Other dyspnea and respiratory abnormality Sacroiliitis, right 720.2 Active Emelyn Norris Sacroiliitis, not elsewhere classified FLANK PAIN, RIGHT ICD-789.09 Inactive Katrina Rinaldi MD PhD HEALTH MAINTENANCE EXAM ICD-V70.0 Inactive Katrina Rinaldi MD PhD BRONCHITIS-ACUTE ICD-466.0 Inactive Poitr Daley DO SCREENING, COLON CANCER ICD-V76.51 Inactive [...] Knee pain, left ICD-719.46 Inactive Sirisha Chen INSTRUMENT/CONTROL TECHNICIAN Actinic keratoses ICD-702.0 Inactive Sirisha Chen INSTRUMENT/CONTROL TECHNICIAN Back pain, thoracic region, left ICD-724.1 Inactive Piotr Daley DO Thoracic back pain ICD-724.5 Inactive Sirisha Chen INSTRUMENT/CONTROL TECHNICIAN Back pain lumbar ICD-724.2 Inactive Sirisha Chen INSTRUMENT/CONTROL TECHNICIAN Insect bite ICD-919.4 Inactive Sirisha Chen INSTRUMENT/CONTROL TECHNICIAN Pruritus ICD-698.9 Inactive Sirisha Chen INSTRUMENT/CONTROL TECHNICIAN 04/09 Bronchitis-Acute ICD-466.0 Inactive Sirisha Chen INSTRUMENT/CONTROL TECHNICIAN Dyspnea ICD-786.09 Inactive Sirisha Chen INSTRUMENT/CONTROL TECHNICIAN 05/09 Medication List Medication Instructions Start Date Stop Date Generic Name NDC Status Provider Patient Instruction WARFARIN SODIUM 4 MG ORAL TABLET 1 tablet by mouth daily WARFARIN SODIUM 24252640554 Active Sirisha Chen INSTRUMENT/CONTROL TECHNICIAN Active MELOXICAM 15 MG ORAL TABLET 1 po q day for pain with food MELOXICAM 77948141244 Active Piotr Daley DO Active PREDNISONE 10 MG ORAL TABLET 1 tablet by mouth daily PREDNISONE 55399461488 No Longer Active Emelyn Norris Active TESSALON PERLES 100 MG ORAL CAPSULE 1-2 tablet by mouth 3 times daily 04/16 BENZONATATE 89375095456 No Longer Active Emelyn Rodriguezibbita Active PREDNISONE 20 MG ORAL TABLET two tabs by mouth today, then one tab by mouth days two and three PREDNISONE 53281102490 No Longer Active Piotr Daley DO Active CYCLOBENZAPRINE HCL 10 MG ORAL TABLET 1 tablet by mouth three times daily as needed for muscle spasm/pain CYCLOBENZAPRINE HCL 79239113577 Active Sirisha Chen INSTRUMENT/CONTROL TECHNICIAN Active ZITHROMAX 250 MG ORAL TABLET Take two (2 ) tablets day one, then one (1) tablet a day for four (4) more days AZITHROMYCIN 99272934486 No Longer Active Piotr Daley DO Active PROAIR HFA 108 (90 BASE) MCG/ACT INHALATION AEROSOL SOLUTION 1-2 puffs four times a day as needed ALBUTEROL SULFATE 76021184921 No Longer Active Emelyn Norris Active DOXYCYCLINE HYCLATE 100 MG ORAL CAPSULE 1 cap by mouth BID x10 days DOXYCYCLINE HYCLATE 14068560662 No Longer Active Nella Harris MEDICINE WORKER Active PREDNISONE 20 MG ORAL TABLET 2 tabs daily for 3 days, 1 tab daily for 3 days, 1/2 tab daily for 2 days PREDNISONE 33045028120 No Longer Active Matthew Rangel MD Active TRAMADOL HCL 50 MG ORAL TABLET 1 po tid with ES Tylenol TRAMADOL HCL 57865800792 No Longer Active Matthew Rangel MD Active GABAPENTIN 300 MG ORAL CAPSULE 1 po q hs for nerve pain GABAPENTIN 31135330468 No Longer Active Matthew Rangel MD Active PREDNISONE 20 MG ORAL TABLET 2 tablets today, then 1 tablet days 2 through 4 PREDNISONE 74930006991 No Longer Active Piotr Daley DO Active AZITHROMYCIN 250 MG ORAL TABLET 2 po qd x 1 day, then 1 po qd x 4 days 07/12 AZITHROMYCIN 51955341145 No Longer Active Piotr Daley DO Active IBUPROFEN 800 MG ORAL TABLET 1 tab every 8 hours as needed 07/12 IBUPROFEN 05900655367 No Longer Active Piotr Daley DO Active LOMOTIL 2.5-0.025 MG ORAL TABLET 1 to 2 four times a day as needed for diarrhea DIPHENOXYLATE-ATROPINE 08760538015 No Longer Active Piotr W Edi DO Active WARFARIN SODIUM 4 MG ORAL TABLET 1 tab every evening WARFARIN SODIUM 46133356686 No Longer Active Piotr Daley DO Active PREDNISONE 20 MG ORAL TABLET 1 tablet twice daily for 2 days, then 1 tablet once daily for 2 days PREDNISONE 44952676716 No Longer Active Piotr Daley DO Active PROMETHAZINE HCL 25 MG ORAL TABLET 1 four times a day as needed for nausea/ vomiting PROMETHAZINE HCL 68814664292 No Longer Active Piotr Daley DO Active TUSSIONEX PENNKINETIC ER 10-8 MG/5ML ORAL SUSPENSION EXTENDED RELEASE 5ml po q12hr PRN Cough HYDROCOD POLST-CHLORPHEN POLST 22541362324 No Longer Active Piotr Daley DO Active AZITHROMYCIN 250 MG ORAL TABLET 2 po qd x 1 day, then 1 po qd x 4 days 10/13 AZITHROMYCIN 55615353789 No Longer Active Piotr Daley DO Active AZITHROMYCIN 250 MG ORAL TABLET 2 po qd x 1 day, then 1 po qd x 4 days 05/07 AZITHROMYCIN 32101872344 No Longer Active Piotr Daley DO Active LISINOPRIL-HYDROCHLOROTHIAZIDE 10-12.5 MG ORAL TABLET 1 tab by mouth daily LISINOPRIL-HYDROCHLOROTHIAZIDE 87103690913 Active Piotr Daley DO Active LISINOPRIL 10 MG ORAL TABLET 1/2-1 tab po every other day LISINOPRIL 55325754510 No Longer Active Piotr Daley DO Active VENTOLIN HFA 108 (90 Base) MCG/ACT INHALATION AEROSOL SOLUTION 2 puffs four times a day PRN cough ALBUTEROL SULFATE 45328098428 No Longer Active Piotr Daley DO Active NYSTATIN-TRIAMCINOLONE 396339-9.1 UNIT/GM-% EXTERNAL CREAM Apply to area BID NYSTATIN-TRIAMCINOLONE 70824487483 No Longer Active Alena Chavira INSTRUMENT/CONTROL TECHNICIAN Active PHISOHEX 3 % LIQD Use Directed HEXACHLOROPHENE 89442353262 No Longer Active Sandra [place] Active AZITHROMYCIN 250 MG ORAL TABLET 2 po qd x 1 day, then 1 po qd x 4 days 10/21 AZITHROMYCIN 36949787842 No Longer Active Katrina Rinaldi MD PhD Active AZITHROMYCIN 250 MG ORAL TABLET 2 po qd x 1 day, then 1 po qd x 4 days 10/16 AZITHROMYCIN 40846691644 No Longer Active Piotr Daley DO Active AZITHROMYCIN 500 MG INTRAVENOUS SOLUTION RECONSTITUTED 1 po q day AZITHROMYCIN 17696098975 No Longer Active Piotr Daley DO Active NYSTATIN-TRIAMCINOLONE 411671-6.1 UNIT/GM-% EXTERNAL CREAM apply bid NYSTATIN-TRIAMCINOLONE 96196321473 No Longer Active Piotr Daley DO Active IBUPROFEN 800 MG ORAL TABLET 1 po q 8 hours prn pain sparinly IBUPROFEN 26048767831 No Longer Active Piotr Daley DO Active VITAMIN D3 5000 UNIT ORAL CAPSULE 1 po daily CHOLECALCIFEROL 34586627836 Active Piotr Daley DO Active IBUPROFEN 800 MG ORAL TABLET 1 po q 8 hours prn pain sparinly IBUPROFEN 800 MG ORAL TABLET 889459 IBUPROFEN Inactive NYSTATIN-TRIAMCINOLONE 239619-9.1 UNIT/GM-% EXTERNAL CREAM apply bid NYSTATIN-TRIAMCINOLONE 125424-0.1 UNIT/GM-% EXTERNAL CREAM 5730086 NYSTATIN-TRIAMCINOLONE Inactive AZITHROMYCIN 500 MG INTRAVENOUS SOLUTION RECONSTITUTED 1 po q day AZITHROMYCIN 500 MG INTRAVENOUS SOLUTION RECONSTITUTED 16852945607 AZITHROMYCIN Inactive VENTOLIN HFA 108 (90 Base) MCG/ACT INHALATION AEROSOL SOLUTION 2 puffs four times a day PRN cough VENTOLIN HFA 108 (90 Base) MCG/ ACT INHALATION AEROSOL SOLUTION ALBUTEROL SULFATE Inactive LISINOPRIL 10 MG ORAL TABLET 1/2-1 tab po every other day LISINOPRIL 10 MG ORAL TABLET 237189 LISINOPRIL Inactive TUSSIONEX PENNKINETIC ER 10-8 MG/5ML ORAL SUSPENSION EXTENDED RELEASE 5ml po q12hr PRN Cough TUSSIONEX PENNKINETIC ER 10-8 MG/5ML ORAL SUSPENSION EXTENDED RELEASE HYDROCOD POLST-CHLORPHEN POLST Inactive PROMETHAZINE HCL 25 MG ORAL TABLET 1 four times a day as needed for nausea/ vomiting PROMETHAZINE HCL 25 MG ORAL TABLET 813298 PROMETHAZINE HCL Inactive PREDNISONE 20 MG ORAL TABLET 1 tablet twice daily for 2 days, then 1 tablet once daily for 2 days PREDNISONE 20 MG ORAL TABLET 097341 PREDNISONE Inactive WARFARIN SODIUM 4 MG ORAL TABLET 1 tab every evening WARFARIN SODIUM 4 MG ORAL TABLET 149381 WARFARIN SODIUM Inactive LOMOTIL 2.5-0.025 MG ORAL TABLET 1 to 2 four times a day as needed for diarrhea LOMOTIL 2.5-0.025 MG ORAL TABLET 7178407 DIPHENOXYLATE-ATROPINE Inactive IBUPROFEN 800 MG ORAL TABLET 1 tab every 8 hours as needed 07/12 IBUPROFEN 800 MG ORAL TABLET 912651 IBUPROFEN Inactive PREDNISONE 20 MG ORAL TABLET 2 tablets today, then 1 tablet days 2 through 4 PREDNISONE 20 MG ORAL TABLET 257980 PREDNISONE Inactive GABAPENTIN 300 MG ORAL CAPSULE 1 po q hs for nerve pain GABAPENTIN 300 MG ORAL CAPSULE 279185 GABAPENTIN Inactive TRAMADOL HCL 50 MG ORAL TABLET 1 po tid with ES Tylenol TRAMADOL HCL 50 MG ORAL TABLET 546678 TRAMADOL HCL Inactive PROAIR HFA 108 (90 BASE) MCG/ACT INHALATION AEROSOL SOLUTION 1-2 puffs four times a day as needed PROAIR HFA 108 (90 BASE) MCG/ACT INHALATION AEROSOL SOLUTION ALBUTEROL SULFATE Inactive PREDNISONE 20 MG ORAL TABLET two tabs by mouth today, then one tab by mouth days two and three PREDNISONE 20 MG ORAL TABLET 340780 PREDNISONE Inactive TESSALON PERLES 100 MG ORAL CAPSULE 1-2 tablet by mouth 3 times daily 04/16 TESSALON PERLES 100 MG ORAL CAPSULE 917543 BENZONATATE Inactive PREDNISONE 10 MG ORAL TABLET 1 tablet by mouth daily PREDNISONE 10 MG ORAL TABLET 129685 PREDNISONE Inactive AZITHROMYCIN 250 MG ORAL TABLET 2 po qd x 1 day, then 1 po qd x 4 days 10/16 AZITHROMYCIN 250 MG ORAL TABLET 155946 AZITHROMYCIN Inactive AZITHROMYCIN 250 MG ORAL TABLET 2 po qd x 1 day, then 1 po qd x 4 days 10/21 AZITHROMYCIN 250 MG ORAL TABLET 070995 AZITHROMYCIN Inactive NYSTATIN-TRIAMCINOLONE 970144-1.1 UNIT/GM-% EXTERNAL CREAM Apply to area BID NYSTATIN-TRIAMCINOLONE 676670-7.1 UNIT/GM-% EXTERNAL CREAM 7428334 NYSTATIN-TRIAMCINOLONE Inactive AZITHROMYCIN 250 MG ORAL TABLET 2 po qd x 1 day, then 1 po qd x 4 days 05/07 AZITHROMYCIN 250 MG ORAL TABLET 551602 AZITHROMYCIN Inactive AZITHROMYCIN 250 MG ORAL TABLET 2 po qd x 1 day, then 1 po qd x 4 days 10/13 AZITHROMYCIN 250 MG ORAL TABLET 212141 AZITHROMYCIN Inactive AZITHROMYCIN 250 MG ORAL TABLET 2 po qd x 1 day, then 1 po qd x 4 days 07/12 AZITHROMYCIN 250 MG ORAL TABLET 753781 AZITHROMYCIN Inactive PREDNISONE 20 MG ORAL TABLET 2 tabs daily for 3 days, 1 tab daily for 3 days, 1/2 tab daily for 2 days PREDNISONE 20 MG ORAL TABLET 760302 PREDNISONE Inactive DOXYCYCLINE HYCLATE 100 MG ORAL CAPSULE 1 cap by mouth BID x10 days DOXYCYCLINE HYCLATE 100 MG ORAL CAPSULE 6784561 DOXYCYCLINE HYCLATE Inactive ZITHROMAX 250 MG ORAL TABLET Take two (2 ) tablets day one, then one (1) tablet a day for four (4) more days ZITHROMAX 250 MG ORAL TABLET 039398 AZITHROMYCIN Inactive Advance Directives Directive Description Start [...] Measured Encounters Code Encounter Date Provider Facility CPT-43967 Level 3 Est. Patient 15:59:25 AIRFIELD ENGINEER OFFICER Piotr Daley [facility] CPT-77069 Level 3 Est. Patient 12:33:59 AIRFIELD ENGINEER OFFICER Piotr Daley [facility] CPT-82880 Level 3 Est. Patient 15:56:17 AIRFIELD ENGINEER OFFICER Piotr Daley [facility] CPT-33358 Level 3 Est. Patient 10:34:54 AIRFIELD ENGINEER OFFICER Piotr Daley [facility] CPT-41014 Level 3 Est. Patient 17:10:19 MALACHI Harris APRN [facility] CPT-31054 Level 3 Est. Patient 10:48:17 AIRFIELD ENGINEER OFFICER Matthew Rangel MD [facility] CPT-05905 Level 4 Est. Patient 17:15:07 AIRFIELD ENGINEER OFFICER Piotr Daley [facility] CPT-72543 Level 3 Est. Patient 12:46:13 AIRFIELD ENGINEER OFFICER Piotr Daley [facility] CPT-73936 Level 3 Est. Patient 15:14:31 AIRFIELD ENGINEER OFFICER Piotr Daley [facility] CPT-91706 Level 3 Est. Patient 09:20:13 AIRFIELD ENGINEER OFFICER Piotr Daley [facility] CPT-93431 Level 3 Est. Patient 09:49:40 CDT Piotr Daley [facility] CPT-31382 Level 3 Est. Patient 16:28:11 CDT Piotr Daley [facility] CPT-35950 Level 3 Est. Patient 12:41:58 AIRFIELD ENGINEER OFFICER Piotr Daley [facility] CPT-03969 Level 3 Est. Patient 09:21:24 CDT Piotr Daley [facility] CPT-65820 Level 3 Est. Patient 09:21:11 CDT Piotr Daley [facility] CPT-67313 Level 3 Est. Patient 11:16:29 AIRFIELD ENGINEER OFFICER Piotr Daley [facility] CPT-98517 Level 3 Est. Patient 18:40:19 AIRFIELD ENGINEER OFFICER Piotr Daley [facility] CPT-27045 Level 3 Est. Patient 19:30:50 CDT Piotr Wilson [facility] CPT-72660 Level 3 Est. Patient 22:06:44 CDT Katrina Rinaldi MD PhD [facility] CPT-72754 Level 3 Est. Patient 14:20:00 CDT Piotr Daley [facility] CPT-10629 Level 3 Est. Patient 14:15:22 AIRFIELD ENGINEER OFFICER Piotr W Edi [facility] CPT-26176 Level 3 Est. Patient 20:19:57 AIRFIELD ENGINEER OFFICER Piotr Daley [facility] CPT-25203 Level 3 Est. Patient 16:44:32 CDT Piotr Daley [facility] CPT-94004 Level 3 Est. Patient 08:48:46 AIRFIELD ENGINEER OFFICER Piotr Daley [facility] CPT-53337 Level 3 Est. Patient 21:01:21 CDT Piotr Daley [facility] Procedures Code Procedure Name Date Entry Date Standard Description CPT-50645 Sacroiliac jt < 3V - XRAY USE ONLY 16:45:19 AIRFIELD ENGINEER OFFICER 05/09 CPT-67067 LS spine comp w obliques - XRAY USE ONLY 14:52:26 AIRFIELD ENGINEER OFFICER CPT-39247 Chest, 2 views 12:55:58 AIRFIELD ENGINEER OFFICER CPT-G0439 Subsequent Annual Wellness Exam 10:34:52 AIRFIELD ENGINEER OFFICER CPT-54048 BMP - LAB USE ONLY 17:19:11 AIRFIELD ENGINEER OFFICER CPT-54655 PT/INR - LAB USE ONLY 17:19:10 [facility] CPT-42446 Venipuncture Draw Fee 17:19:10 AIRFIELD ENGINEER OFFICER CPT-09681 PT/INR - LAB USE ONLY 08:12:25 AIRFIELD ENGINEER OFFICER CPT-34124 Venipuncture Draw Fee 08:12:24 AIRFIELD ENGINEER OFFICER CPT-37758 Venipuncture Draw Fee 11:31:07 AIRFIELD ENGINEER OFFICER CPT-49127 TPSA - LAB USE ONLY 11:31:07 AIRFIELD ENGINEER OFFICER CPT-15017 PT/INR - LAB USE ONLY 11:31:07 AIRFIELD ENGINEER OFFICER CPT-G0439 Subsequent Annual Wellness Exam 09:59:29 AIRFIELD ENGINEER OFFICER CPT-91336 Creatinine - LAB USE ONLY 14:37:55 AIRFIELD ENGINEER OFFICER CPT-48371 PT/INR - LAB USE ONLY 14:37:55 AIRFIELD ENGINEER OFFICER CPT-06448 Venipuncture Draw Fee 14:37:55 AIRFIELD ENGINEER OFFICER CPT-21541 LS spine comp w obliques - XRAY USE ONLY 12:59:25 AIRFIELD ENGINEER OFFICER CPT-86713 PT/INR - LAB USE ONLY 13:49:20 CDT CPT-62809 Venipuncture Draw Fee 13:49:19 CDT CPT-74964 PT/INR - LAB USE ONLY 15:48:49 CDT CPT-17224 Venipuncture Draw Fee 15:48:49 CDT CPT-94007 Venipuncture Draw Fee 11:31:59 CDT CPT-93878 PT/INR - LAB USE ONLY 11:31:59 CDT CPT-27399 Venipuncture Draw Fee 13:29:15 CDT CPT-79264 Thoracolumbar AP/Lat 15:19:19 AIRFIELD ENGINEER OFFICER CPT-G0438 Initial Annual Wellness Exam 12:18:54 AIRFIELD ENGINEER OFFICER CPT-56538 Knee 3V 09:57:38 CDT CPT-OV Office Visit 15:45:01 AIRFIELD ENGINEER OFFICER CPT-50006 Abd compl w upright 17:10:25 CDT
[2018-07-18 09:25] VITALS: BP 131/66
--- OUTSIDE RECORDS SUMMARY | 2018-07-18 09:25 | XMS REPORT | Clinical Summary ---
Author Author Admin, E Organization [employer] Address Unknown Phone Unavailable Allergies, Adverse Reactions, [...] neoplasm of prostate V10.46 Active Alina Meyers [employer]PER PLATE PRINTER Personal history of malignant neoplasm of prostate Coronary artery disease 414.00 Active Alina Luigi [employer] PLATE PRINTER Coronary atherosclerosis of unspecified type of vessel, [place] or graft Back pain, thoracic region, left 724.1 Inactive Piotr Katie Edi DO Pain in thoracic spine Thoracic back pain 724.5 Active Piotr W Edi DO Backache, unspecified Back pain lumbar 724.2 Active Piotr Daley DO Lumbago Peripheral neuropathy, lower extremity, left 356.9 Active 02/19 Piotr W Edi DO Unspecified hereditary and idiopathic peripheral neuropathy Insect bite 919.4 Active Nella Harris [employer] PLATE PRINTER Insect bite, nonvenomous, of other, multiple, and unspecified sites, without mention of infection Pruritus 698.9 Active Nella Harris [employer]ATE PRINTER Unspecified pruritic disorder Wellness exam V70.0 Active [...] times a day as needed ALBUTEROL SULFATE 81697733252 No Longer Active Emelyn Norris Active DOXYCYCLINE HYCLATE 100 MG ORAL CAPSULE 1 cap by mouth BID x10 days DOXYCYCLINE HYCLATE 38970356959 No Longer Active Nella Harris APRN Active WARFARIN SODIUM 5 MG ORAL TABLET 1 tablet daily M-S, 1/2 tab on Heart WARFARIN SODIUM 50245404215 Active Piotr Daley DO Active PREDNISONE 20 MG ORAL TABLET 2 tabs daily for 3 days, 1 tab daily for 3 days, 1/2 tab daily for 2 days PREDNISONE 03373413094 No Longer Active Matthew Rangel MD Active TRAMADOL HCL 50 MG ORAL TABLET 1 po tid with ES Tylenol TRAMADOL HCL 55289633780 No Longer Active Matthew Rangel MD Active GABAPENTIN 300 MG ORAL CAPSULE 1 po q hs for nerve pain GABAPENTIN 01448276874 No Longer Active Matthew Rangel MD Active PREDNISONE 20 MG ORAL TABLET 2 tablets today, then 1 tablet days 2 through 4 PREDNISONE 89376604533 No Longer Active Piotr Daley DO Active AZITHROMYCIN 250 MG ORAL TABLET 2 po qd x 1 day, then 1 po qd x 4 days 07/12 AZITHROMYCIN 95924659607 No Longer Active Piotr Daley DO Active IBUPROFEN 800 MG ORAL TABLET 1 tab every 8 hours as needed 07/12 IBUPROFEN 91919823870 No Longer Active Piotr Daley DO Active LOMOTIL 2.5-0.025 MG ORAL TABLET 1 to 2 four times a day as needed for diarrhea DIPHENOXYLATE-ATROPINE 04091346613 No Longer Active Piotr Daley DO Active WARFARIN SODIUM 4 MG ORAL TABLET 1 tab every evening WARFARIN SODIUM 85413813546 No Longer Active Piotr Daley DO Active PREDNISONE 20 MG ORAL TABLET 1 tablet twice daily for 2 days, then 1 tablet once daily for 2 days PREDNISONE 67736513028 No Longer Active Piotr Daley DO Active PROMETHAZINE HCL 25 MG ORAL TABLET 1 four times a day as needed for nausea/ vomiting PROMETHAZINE HCL 59418553525 No Longer Active Piotr Daley DO Active TUSSIONEX PENNKINETIC ER 10-8 MG/5ML ORAL SUSPENSION EXTENDED RELEASE 5ml po q12hr PRN Cough HYDROCOD POLST-CHLORPHEN POLST 90628054961 No Longer Active Piotr Daley DO Active AZITHROMYCIN 250 MG ORAL TABLET 2 po qd x 1 day, then 1 po qd x 4 days 10/13 AZITHROMYCIN 93049003623 No Longer Active Piotr Daley DO Active AZITHROMYCIN 250 MG ORAL TABLET 2 po qd x 1 day, then 1 po qd x 4 days 05/07 AZITHROMYCIN 36119429335 No Longer Active Piotr Daley DO Active LISINOPRIL-HYDROCHLOROTHIAZIDE 10-12.5 MG ORAL TABLET 1 tab by mouth daily LISINOPRIL-HYDROCHLOROTHIAZIDE 91215569532 Active Piotr Daley DO Active LISINOPRIL 10 MG ORAL TABLET 1/2-1 tab po every other day LISINOPRIL 95406041937 No Longer Active Piotr Daley DO Active VENTOLIN HFA 108 (90 Base) MCG/ACT INHALATION AEROSOL SOLUTION 2 puffs four times a day PRN cough ALBUTEROL SULFATE 92801878427 No Longer Active Piotr Daley DO Active NYSTATIN-TRIAMCINOLONE 331488-3.1 UNIT/GM-% EXTERNAL CREAM Apply to area BID NYSTATIN-TRIAMCINOLONE 68136593720 No Longer Active Alena Chavira COCOA ROASTER Active PHISOHEX 3 % LIQD Use Directed HEXACHLOROPHENE 69789459832 No Longer Active Sandra [place] Active AZITHROMYCIN 250 MG ORAL TABLET 2 po qd x 1 day, then 1 po qd x 4 days 10/21 AZITHROMYCIN 93315809421 No Longer Active Katrina Rinaldi MD PhD Active AZITHROMYCIN 250 MG ORAL TABLET 2 po qd x 1 day, then 1 po qd x 4 days 10/16 AZITHROMYCIN 66044054464 No Longer Active Piotr aDley DO Active AZITHROMYCIN 500 MG INTRAVENOUS SOLUTION RECONSTITUTED 1 po q day AZITHROMYCIN 70257324307 No Longer Active Piotr Daley DO Active NYSTATIN-TRIAMCINOLONE 091917-1.1 UNIT/GM-% EXTERNAL CREAM apply bid NYSTATIN-TRIAMCINOLONE 07744094682 No Longer Active Piotr Daley DO Active IBUPROFEN 800 MG ORAL TABLET 1 po q 8 hours prn pain sparinly IBUPROFEN 43529582731 No Longer Active Piotr Daley DO Active VITAMIN D3 5000 UNIT ORAL CAPSULE 1 po daily CHOLECALCIFEROL 94045252053 Active Piotr Daley DO Active IBUPROFEN 800 MG ORAL TABLET 1 po q 8 hours prn pain sparinly IBUPROFEN 800 MG ORAL TABLET 124703 IBUPROFEN Inactive NYSTATIN-TRIAMCINOLONE 402176-6.1 UNIT/GM-% EXTERNAL CREAM apply bid NYSTATIN-TRIAMCINOLONE 347961-5.1 UNIT/GM-% EXTERNAL CREAM 5676473 NYSTATIN-TRIAMCINOLONE Inactive AZITHROMYCIN 500 MG INTRAVENOUS SOLUTION RECONSTITUTED 1 po q day AZITHROMYCIN 500 MG INTRAVENOUS SOLUTION RECONSTITUTED 93324007080 AZITHROMYCIN Inactive VENTOLIN HFA 108 (90 Base) MCG/ACT INHALATION AEROSOL SOLUTION 2 puffs four times a day PRN cough VENTOLIN HFA 108 (90 Base) MCG/ ACT INHALATION AEROSOL SOLUTION ALBUTEROL SULFATE Inactive LISINOPRIL 10 MG ORAL TABLET 1/2-1 tab po every other day LISINOPRIL 10 MG ORAL TABLET 965364 LISINOPRIL Inactive TUSSIONEX PENNKINETIC ER 10-8 MG/5ML ORAL SUSPENSION EXTENDED RELEASE 5ml po q12hr PRN Cough TUSSIONEX PENNKINETIC ER 10-8 MG/5ML ORAL SUSPENSION EXTENDED RELEASE HYDROCOD POLST-CHLORPHEN POLST Inactive PROMETHAZINE HCL 25 MG ORAL TABLET 1 four times a day as needed for nausea/ vomiting PROMETHAZINE HCL 25 MG ORAL TABLET 112103 PROMETHAZINE HCL Inactive PREDNISONE 20 MG ORAL TABLET 1 tablet twice daily for 2 days, then 1 tablet once daily for 2 days PREDNISONE 20 MG ORAL TABLET 505333 PREDNISONE Inactive WARFARIN SODIUM 4 MG ORAL TABLET 1 tab every evening WARFARIN SODIUM 4 MG ORAL TABLET 045401 WARFARIN SODIUM Inactive LOMOTIL 2.5-0.025 MG ORAL TABLET 1 to 2 four times a day as needed for diarrhea LOMOTIL 2.5-0.025 MG ORAL TABLET 5111451 DIPHENOXYLATE-ATROPINE Inactive IBUPROFEN 800 MG ORAL TABLET 1 tab every 8 hours as needed 07/12 IBUPROFEN 800 MG ORAL TABLET 286418 IBUPROFEN Inactive PREDNISONE 20 MG ORAL TABLET 2 tablets today, then 1 tablet days 2 through 4 PREDNISONE 20 MG ORAL TABLET 137239 PREDNISONE Inactive GABAPENTIN 300 MG ORAL CAPSULE 1 po q hs for nerve pain GABAPENTIN 300 MG ORAL CAPSULE 716984 GABAPENTIN Inactive TRAMADOL HCL 50 MG ORAL TABLET 1 po tid with ES Tylenol TRAMADOL HCL 50 MG ORAL TABLET 914494 TRAMADOL HCL Inactive PROAIR HFA 108 (90 BASE) MCG/ACT INHALATION AEROSOL SOLUTION 1-2 puffs four times a day as needed PROAIR HFA 108 (90 BASE) MCG/ACT INHALATION AEROSOL SOLUTION ALBUTEROL SULFATE Inactive AZITHROMYCIN 250 MG ORAL TABLET 2 po qd x 1 day, then 1 po qd x 4 days 10/16 AZITHROMYCIN 250 MG ORAL TABLET 448738 AZITHROMYCIN Inactive AZITHROMYCIN 250 MG ORAL TABLET 2 po qd x 1 day, then 1 po qd x 4 days 10/21 AZITHROMYCIN 250 MG ORAL TABLET 977104 AZITHROMYCIN Inactive NYSTATIN-TRIAMCINOLONE 606117-5.1 UNIT/GM-% EXTERNAL CREAM Apply to area BID NYSTATIN-TRIAMCINOLONE 332240-2.1 UNIT/GM-% EXTERNAL CREAM 7563250 NYSTATIN-TRIAMCINOLONE Inactive AZITHROMYCIN 250 MG ORAL TABLET 2 po qd x 1 day, then 1 po qd x 4 days 05/07 AZITHROMYCIN 250 MG ORAL TABLET 210278 AZITHROMYCIN Inactive AZITHROMYCIN 250 MG ORAL TABLET 2 po qd x 1 day, then 1 po qd x 4 days 10/13 AZITHROMYCIN 250 MG ORAL TABLET 123346 AZITHROMYCIN Inactive AZITHROMYCIN 250 MG ORAL TABLET 2 po qd x 1 day, then 1 po qd x 4 days 07/12 AZITHROMYCIN 250 MG ORAL TABLET 819558 AZITHROMYCIN Inactive PREDNISONE 20 MG ORAL TABLET 2 tabs daily for 3 days, 1 tab daily for 3 days, 1/2 tab daily for 2 days PREDNISONE 20 MG ORAL TABLET 346225 PREDNISONE Inactive DOXYCYCLINE HYCLATE 100 MG ORAL CAPSULE 1 cap by mouth BID x10 days DOXYCYCLINE HYCLATE 100 MG ORAL CAPSULE 0906593 DOXYCYCLINE HYCLATE Inactive Advance Directives Directive Description [...] Panel - Chemistry sodium, serum 141 mmol/L 136-998 0943/01/24 potassium, serum 4.3 mmol/L 3.5-5.2 chloride, serum [...] % 11.0-15.0 platelet count 172 THOUSAND/UL 10*3/mm3 885-451 9775/04/12 mean platelet volume 8.6 fL 7.5-12.5 Lab [...] 18.9-24.9 Encounters Code Encounter Date Provider Facility CPT-23293 Level 3 Est. Patient 10:34:54 [employer]ERA STORAGE CLERK Piotr Wilson Edi [facility] CPT-55474 Level 3 Est. Patient 17:10:19 CDT Nella Harris APRN [facility] CPT-91793 Level 3 Est. Patient 10:48:17 [employer]A STORAGE CLERK Matthew Rangel MD [facility] CPT-63284 Level 4 Est. Patient 17:15:07 [employer]ERA STORAGE CLERK Piotr Wilson Edi [facility] CPT-12247 Level 3 Est. Patient 12:46:13 [employer]ERA STORAGE CLERK Piotr Wilson Edi [facility] CPT-29020 Level 3 Est. Patient 15:14:31 CAMERA STORAGE CLERK Piotr Wilson Edi [facility] CPT-60726 Level 3 Est. Patient 09:20:13 [employer]ERA STORAGE CLERK Piotr Wilson Edi [facility] CPT-12404 Level 3 Est. Patient 09:49:40 CDT Piotr Daley [facility] CPT-60113 Level 3 Est. Patient 16:28:11 CDT Piotr Daley [facility] CPT-93829 Level 3 Est. Patient 12:41:58 [employer]ERA STORAGE CLERK Piotr Daley [facility] CPT-95841 Level 3 Est. Patient 09:21:24 CDT Piotr Wilson Edi [facility] CPT-60828 Level 3 Est. Patient 09:21:11 CDT Piotr Katie Daley [facility] CPT-07588 Level 3 Est. Patient 11:16:29 [employer]ERA STORAGE CLERK Piotr Daley [facility] CPT-44497 Level 3 Est. Patient 18:40:19 [employer]ERA STORAGE CLERK Piotr Daley [facility] CPT-71208 Level 3 Est. Patient 19:30:50 CDT Piotr Daley [facility] CPT-07540 Level 3 Est. Patient 22:06:44 CDT Katrina Rinaldi MD PhD [facility] CPT-00175 Level 3 Est. Patient 14:20:00 CDT Piotr Daley [facility] CPT-40954 Level 3 Est. Patient 14:15:22 CAMERA STORAGE CLERK Piotr Daley [facility] CPT-32404 Level 3 Est. Patient 20:19:57 CAMERA STORAGE CLERK Piotr Daley [facility] CPT-98273 Level 3 Est. Patient 16:44:32 CDT Piotr Daley [facility] CPT-93689 Level 3 Est. Patient 08:48:46 [employer]ERA STORAGE CLERK Piotr Daley [facility] CPT-77677 Level 3 Est. Patient 21:01:21 CDT Piotr Daley [facility] Procedures Code Procedure Name Date Entry Date Standard Description CPT-G0439 Subsequent Annual Wellness Exam 10:34:52 [facility] CPT-57845 BMP - LAB USE ONLY 17:19:11 [employer]A STORAGE CLERK CPT-65000 PT/INR - LAB USE ONLY 17:19:10 [facility] CPT-42028 Venipuncture Draw Fee 17:19:10 [employer]A STORAGE CLERK CPT-66043 PT/INR - LAB USE ONLY 08:12:25 [facility] CPT-66015 Venipuncture Draw Fee 08:12:24 [employer]A STORAGE CLERK CPT-72956 Venipuncture Draw Fee 11:31:07 [employer]ERA STORAGE CLERK CPT-08732 TPSA - LAB USE ONLY 11:31:07 [employer]ERA STORAGE CLERK CPT-90753 PT/INR - LAB USE ONLY 11:31:07 [facility] CPT-G0439 Subsequent Annual Wellness Exam 09:59:29 [employer]ERA STORAGE CLERK CPT-11497 Creatinine - LAB USE ONLY 14:37:55 [employer]A STORAGE CLERK CPT-01708 PT/INR - LAB USE ONLY 14:37:55 [employer]ERA STORAGE CLERK CPT-76613 Venipuncture Draw Fee 14:37:55 [employer]ERA STORAGE CLERK CPT-10782 LS spine comp w obliques - XRAY USE ONLY 12:59:25 [employer]ERA STORAGE CLERK CPT-34247 PT/INR - LAB USE ONLY 13:49:20 CDT CPT-51226 Venipuncture Draw Fee 13:49:19 CDT CPT-99307 PT/INR - LAB USE ONLY 15:48:49 CDT CPT-21380 Venipuncture Draw Fee 15:48:49 CDT CPT-55469 Venipuncture Draw Fee 11:31:59 CDT CPT-43920 PT/INR - LAB USE ONLY 11:31:59 CDT CPT-55669 Venipuncture Draw Fee 13:29:15 CDT CPT-08189 Thoracolumbar AP/Lat 15:19:19 [employer]ERA STORAGE CLERK CPT-G0438 Initial Annual Wellness Exam 12:18:54 [employer]ERA STORAGE CLERK CPT-49667 Knee 3V 09:57:38 CDT CPT-OV Office Visit 15:45:01 CAMERA STORAGE CLERK CPT-35085 Abd compl w upright 17:10:25 CDT
--- OUTSIDE RECORDS SUMMARY | 2018-07-18 09:26 | XMS REPORT | Clinical Summary ---
Author Author Admin, E Organization [employer] Address Unknown Phone Unavailable Allergies, Adverse Reactions, [...] neoplasm of prostate V10.46 Active Alina Meyers OPTIC FIBRE DRAWER Personal history of malignant neoplasm of prostate Coronary artery disease 414.00 Active Alina Luigi [employer]IC F[employer]RE DRAWER Coronary atherosclerosis of unspecified type of vessel, [...] po tid with ES Tylenol TRAMADOL HCL 05038573278 Active Piotr Daley DO Active WARFARIN SODIUM 5 MG TABS 1 tablet daily except for Saturday and Sat 1/ tablet. WARFARIN SODIUM 57978437366 Active Piotr Daley DO Active PREDNISONE 20 MG TAB 2 tablets today, then 1 tablet days 2 through 4 PREDNISONE 17896351421 No Longer Active Piotr Daley DO Active AZITHROMYCIN 250 MG TABS 2 po qd x 1 day, then 1 po qd x 4 days AZITHROMYCIN 57849133629 No Longer Active Piotr Daley DO Active IBUPROFEN 800 MG TABS 1 tab every 8 hours as needed IBUPROFEN 61116286539 No Longer Active Piotr Daley DO Active LOMOTIL 2.5-0.025 MG TAB 1 to 2 four times a day as needed for diarrhea 10/13 DIPHENOXYLATE-ATROPINE 02554627654 No Longer Active Piotr Daley DO Active WARFARIN SODIUM 4 MG TABS 1 tab every evening WARFARIN SODIUM 67496982357 No Longer Active Piotr Daley DO Active PREDNISONE 20 MG TAB 1 tablet twice daily for 2 days, then 1 tablet once daily for 2 days PREDNISONE 76546626236 No Longer Active Piotr Daley DO Active PROMETHAZINE HCL 25 MG TABS 1 four times a day as needed for nausea/vomiting PROMETHAZINE HCL 04183211579 No Longer Active Piotr Daley DO Active TUSSIONEX PENNKINETIC ER 10-8 MG/5ML LQCR 5ml po q12hr PRN Cough HYDROCOD POLST-CHLORPHEN POLST 74834781274 No Longer Active Piotr W Edi DO Active AZITHROMYCIN 250 MG TABS 2 po qd x 1 day, then 1 po qd x 4 days AZITHROMYCIN 07638385296 No Longer Active Piotr Daley DO Active AZITHROMYCIN 250 MG TABS 2 po qd x 1 day, then 1 po qd x 4 days AZITHROMYCIN 90502346447 No Longer Active Piotr Daley DO Active LISINOPRIL-HYDROCHLOROTHIAZIDE 10-12.5 MG TABS 1 tab by mouth daily LISINOPRIL-HYDROCHLOROTHIAZIDE 61771780863 Active Hilary Ma MA Active LISINOPRIL 10 MG TABS 1/2-1 tab po every other day LISINOPRIL 81321889473 No Longer Active Piotr Daley DO Active VENTOLIN HFA 108 (90 BASE) MCG/ACT AERS 2 puffs four times a day PRN cough ALBUTEROL SULFATE 60171106280 No Longer Active Piotr Daley DO Active NYSTATIN-TRIAMCINOLONE 836022-9.1 UNIT/GM-% CREA Apply to area BID NYSTATIN-TRIAMCINOLONE 30664025401 No Longer Active Alena Chavira SUPERVISOR TREE TRIMMING Active PHISOHEX 3 % LIQD Use Directed HEXACHLOROPHENE 34673384338 No Longer Active Sandra [place] Active AZITHROMYCIN 250 MG TABS 2 po qd x 1 day, then 1 po qd x 4 days AZITHROMYCIN 38258694884 No Longer Active Katrina Rinaldi MD PhD Active AZITHROMYCIN 250 MG TABS 2 po qd x 1 day, then 1 po qd x 4 days AZITHROMYCIN 23273824798 No Longer Active Piotr Daley DO Active AZITHROMYCIN 500 MG SOLR 1 po q day AZITHROMYCIN 84800231359 No Longer Active Piotr Daley DO Active NYSTATIN-TRIAMCINOLONE 643463-3.1 UNIT/GM-% CREA apply bid 08/19 NYSTATIN-TRIAMCINOLONE 65436528086 No Longer Active Piotr Daley DO Active IBUPROFEN 800 MG TABS 1 po q 8 hours prn pain sparinly IBUPROFEN 79217013161 No Longer Active Piotr Daley DO Active VITAMIN D3 5000 UNIT CAPS 1 po daily CHOLECALCIFEROL 88268354384 Active Piotr Daley DO Active IBUPROFEN 800 MG TABS 1 po q 8 hours prn pain sparinly IBUPROFEN 800 MG TABS 881212 IBUPROFEN Inactive NYSTATIN-TRIAMCINOLONE 533715-4.1 UNIT/GM-% CREA apply bid 08/19 NYSTATIN-TRIAMCINOLONE 657380-0.1 UNIT/GM-% CREA 8712836 NYSTATIN- TRIAMCINOLONE Inactive AZITHROMYCIN 500 MG SOLR 1 po q day AZITHROMYCIN 500 MG SOLR 55062636114 AZITHROMYCIN Inactive VENTOLIN HFA 108 (90 BASE) MCG/ACT AERS 2 puffs four times a day PRN cough VENTOLIN HFA 108 (90 BASE) MCG/ACT AERS ALBUTEROL SULFATE Inactive LISINOPRIL 10 MG TABS 1/2-1 tab po every other day LISINOPRIL 10 MG TABS 768871 LISINOPRIL Inactive TUSSIONEX PENNKINETIC ER 10-8 MG/5ML LQCR 5ml po q12hr PRN Cough TUSSIONEX PENNKINETIC ER 10-8 MG/5ML LQCR HYDROCOD POLST- CHLORPHEN POLST Inactive PROMETHAZINE HCL 25 MG TABS 1 four times a day as needed for nausea/vomiting PROMETHAZINE HCL 25 MG TABS 017507 PROMETHAZINE HCL Inactive PREDNISONE 20 MG TAB 1 tablet twice daily for 2 days, then 1 tablet once daily for 2 days PREDNISONE 20 MG TAB 188060 PREDNISONE Inactive WARFARIN SODIUM 4 MG TABS 1 tab every evening WARFARIN SODIUM 4 MG TABS 878506 WARFARIN SODIUM Inactive LOMOTIL 2.5-0.025 MG TAB 1 to 2 four times a day as needed for diarrhea 10/13 LOMOTIL 2.5-0.025 MG TAB 9739408 DIPHENOXYLATE-ATROPINE Inactive IBUPROFEN 800 MG TABS 1 tab every 8 hours as needed IBUPROFEN 800 MG TABS 716853 IBUPROFEN Inactive PREDNISONE 20 MG TAB 2 tablets today, then 1 tablet days 2 through 4 PREDNISONE 20 MG TAB 342382 PREDNISONE Inactive AZITHROMYCIN 250 MG TABS 2 po qd x 1 day, then 1 po qd x 4 days AZITHROMYCIN 250 MG TABS 0487441 AZITHROMYCIN Inactive AZITHROMYCIN 250 MG TABS 2 po qd x 1 day, then 1 po qd x 4 days AZITHROMYCIN 250 MG TABS 2262146 AZITHROMYCIN Inactive NYSTATIN-TRIAMCINOLONE 910430-2.1 UNIT/GM-% CREA Apply to area BID NYSTATIN-TRIAMCINOLONE 987542-4.1 UNIT/GM-% CREA 5560869 NYSTATIN-TRIAMCINOLONE Inactive AZITHROMYCIN 250 MG TABS 2 po qd x 1 day, then 1 po qd x 4 days AZITHROMYCIN 250 MG TABS 5807064 AZITHROMYCIN Inactive AZITHROMYCIN 250 MG TABS 2 po qd x 1 day, then 1 po qd x 4 days AZITHROMYCIN 250 MG TABS 8720109 AZITHROMYCIN Inactive AZITHROMYCIN 250 MG TABS 2 po qd x 1 day, then 1 po qd x 4 days AZITHROMYCIN 250 MG TABS 4909712 AZITHROMYCIN Inactive Advance Directives Directive Description Start [...] mg/g mg/g{creat} 0-29 sodium, serum 140 mmol/L 672-248 1524/07/17 potassium, serum 4.2 mmol/L 3.5-5.2 chloride, serum [...] (INR) 2.3 1.0-3.5 international normalized ratio (INR) 1.99 1.0-3.5 prothrombin time (patient) 17.3 SECS s 11.1-13.4 prothrombin time (patient) 16.5 SECS s 11.1-13.4 international normalized ratio (INR) 1.9 1.0-3.5 prothrombin time (patient) 19.9 SECS s 11.1-13.4 international normalized ratio (INR) 2.6 1.0-3.5 prothrombin time (patient) 17.5 SECS s [...] 5.0-8.5 Encounters Code Encounter Date Provider Facility CPT-37457 Level 3 Est. Patient 15:14:31 CHAIR CANER Piotr Wilson [facility] CPT-32665 Level 3 Est. Patient 09:20:13 CHAIR CANER Piotr Wilson [facility] CPT-54768 Level 3 Est. Patient 09:49:40 CDT Piotr Wilson [facility] CPT-66468 Level 3 Est. Patient 16:28:11 CDT Piotr Wilson [facility] CPT-72395 Level 3 Est. Patient 12:41:58 CHAIR CANER Piotr Wilson [facility] CPT-55835 Level 3 Est. Patient 09:21:24 CDT Piotr Wilson [facility] CPT-39793 Level 3 Est. Patient 09:21:11 CDT Piotr Wilson [facility] CPT-30029 Level 3 Est. Patient 11:16:29 CHAIR CANER Piotr Daley [facility] CPT-36424 Level 3 Est. Patient 18:40:19 CHAIR CANER Piotr Daley [facility] CPT-29876 Level 3 Est. Patient 19:30:50 CDT Piotr Daley [facility] CPT-46352 Level 3 Est. Patient 22:06:44 CDT Katrina Rinaldi MD [facility] CPT-03823 Level 3 Est. Patient 14:20:00 CDT Piotr Daley [facility] CPT-83329 Level 3 Est. Patient 14:15:22 CHAIR CANER Piotr Daley [facility] CPT-95684 Level 3 Est. Patient 20:19:57 CHAIR CANER Piotr Daley [facility] CPT-18128 Level 3 Est. Patient 16:44:32 CDT Piotr Daley [facility] CPT-36781 Level 3 Est. Patient 08:48:46 CHAIR CANER Piotr Daley [facility] CPT-63884 Level 3 Est. Patient 21:01:21 CDT Piotr Wilson [facility] Procedures Code Procedure Name Date Entry Date Standard Description CPT-60143 Thoracolumbar AP/Lat 15:19:19 CHAIR CANER CPT-G0438 Initial Annual Wellness Exam 12:18:54 CHAIR CANER CPT-65797 Knee 3V 09:57:38 CDT CPT-OV Office Visit 15:45:01 CHAIR CANER CPT-31705 Abd compl w upright 17:10:25 CDT
--- OUTSIDE RECORDS SUMMARY | 2018-07-18 09:27 | XMS REPORT | Clinical Summary ---
Author Author Admin, E Organization [employer] Address Unknown Phone Unavailable Allergies, Adverse Reactions, [...] neoplasm of prostate V10.46 Active Alina Meyers CONTINUITY MANAGER Personal history of malignant neoplasm of prostate Coronary artery disease 414.00 Active Alina Luigi CONTINUITY MANAGER Coronary atherosclerosis of unspecified type of vessel, [place] or graft Back pain, thoracic region, left [...] MG TABS 1 tablet daily WARFARIN SODIUM 30297671028 Active Simi Meyers Active TRAMADOL HCL 50 MG TABS 1 po tid with ES Tylenol TRAMADOL HCL 03122687593 Active Piotr Daley DO Active PREDNISONE 20 MG TAB 2 tablets today, then 1 tablet days 2 through 4 PREDNISONE 63843506834 No Longer Active Piotr Daley DO Active AZITHROMYCIN 250 MG TABS 2 po qd x 1 day, then 1 po qd x 4 days AZITHROMYCIN 79461203556 No Longer Active Piotr Daley DO Active IBUPROFEN 800 MG TABS 1 tab every 8 hours as needed IBUPROFEN 59051194575 No Longer Active Piotr Daley DO Active LOMOTIL 2.5-0.025 MG TAB 1 to 2 four times a day as needed for diarrhea 10/13 DIPHENOXYLATE-ATROPINE 18066503480 No Longer Active Piotr Daley DO Active WARFARIN SODIUM 4 MG TABS 1 tab every evening WARFARIN SODIUM 95570941874 No Longer Active Piotr Daley DO Active PREDNISONE 20 MG TAB 1 tablet twice daily for 2 days, then 1 tablet once daily for 2 days PREDNISONE 14241795724 No Longer Active Piotr Daley DO Active PROMETHAZINE HCL 25 MG TABS 1 four times a day as needed for nausea/vomiting PROMETHAZINE HCL 40084620331 No Longer Active Piotr Daley DO Active TUSSIONEX PENNKINETIC ER 10-8 MG/5ML LQCR 5ml po q12hr PRN Cough HYDROCOD POLST-CHLORPHEN POLST 33670020096 No Longer Active Piotr Daley DO Active AZITHROMYCIN 250 MG TABS 2 po qd x 1 day, then 1 po qd x 4 days AZITHROMYCIN 87006245044 No Longer Active Piotr Daley DO Active AZITHROMYCIN 250 MG TABS 2 po qd x 1 day, then 1 po qd x 4 days AZITHROMYCIN 28495530741 No Longer Active Piotr Daley DO Active LISINOPRIL-HYDROCHLOROTHIAZIDE 10-12.5 MG TABS 1 tab by mouth daily LISINOPRIL-HYDROCHLOROTHIAZIDE 58437270589 Active Hilary Ma MA Active LISINOPRIL 10 MG TABS 1/2-1 tab po every other day LISINOPRIL 75127531377 No Longer Active Piotr Daley DO Active VENTOLIN HFA 108 (90 BASE) MCG/ACT AERS 2 puffs four times a day PRN cough ALBUTEROL SULFATE 13842296161 No Longer Active Piotr Daley DO Active NYSTATIN-TRIAMCINOLONE 074844-2.1 UNIT/GM-% CREA Apply to area BID NYSTATIN-TRIAMCINOLONE 45844513719 No Longer Active Alena Oswaldum MILL MACHINIST Active PHISOHEX 3 % LIQD Use Directed HEXACHLOROPHENE 07776395297 No Longer Active Sandra [place] Active AZITHROMYCIN 250 MG TABS 2 po qd x 1 day, then 1 po qd x 4 days AZITHROMYCIN 85730206436 No Longer Active Katrina Rinaldi MD PhD Active AZITHROMYCIN 250 MG TABS 2 po qd x 1 day, then 1 po qd x 4 days AZITHROMYCIN 20943666782 No Longer Active Piotr Daley DO Active AZITHROMYCIN 500 MG SOLR 1 po q day AZITHROMYCIN 03881919170 No Longer Active Piotr Daley DO Active NYSTATIN-TRIAMCINOLONE 492489-9.1 UNIT/GM-% CREA apply bid 08/19 NYSTATIN-TRIAMCINOLONE 39254996710 No Longer Active Piotr Daley DO Active IBUPROFEN 800 MG TABS 1 po q 8 hours prn pain sparinly IBUPROFEN 40172563523 No Longer Active Piotr Daley DO Active VITAMIN D3 5000 UNIT CAPS 1 po daily CHOLECALCIFEROL 92190643777 Active Piotr Daley DO Active IBUPROFEN 800 MG TABS 1 po q 8 hours prn pain sparinly IBUPROFEN 800 MG TABS 910133 IBUPROFEN Inactive NYSTATIN-TRIAMCINOLONE 941676-5.1 UNIT/GM-% CREA apply bid 08/19 NYSTATIN-TRIAMCINOLONE 763490-8.1 UNIT/GM-% CREA 2524126 NYSTATIN- TRIAMCINOLONE Inactive AZITHROMYCIN 500 MG SOLR 1 po q day AZITHROMYCIN 500 MG SOLR 91175585529 AZITHROMYCIN Inactive VENTOLIN HFA 108 (90 BASE) MCG/ACT AERS 2 puffs four times a day PRN cough VENTOLIN HFA 108 (90 BASE) MCG/ACT AERS ALBUTEROL SULFATE Inactive LISINOPRIL 10 MG TABS 1/2-1 tab po every other day LISINOPRIL 10 MG TABS 223129 LISINOPRIL Inactive TUSSIONEX PENNKINETIC ER 10-8 MG/5ML LQCR 5ml po q12hr PRN Cough TUSSIONEX PENNKINETIC ER 10-8 MG/5ML LQCR HYDROCOD POLST- CHLORPHEN POLST Inactive PROMETHAZINE HCL 25 MG TABS 1 four times a day as needed for nausea/vomiting PROMETHAZINE HCL 25 MG TABS 419793 PROMETHAZINE HCL Inactive PREDNISONE 20 MG TAB 1 tablet twice daily for 2 days, then 1 tablet once daily for 2 days PREDNISONE 20 MG TAB 062057 PREDNISONE Inactive WARFARIN SODIUM 4 MG TABS 1 tab every evening WARFARIN SODIUM 4 MG TABS 327115 WARFARIN SODIUM Inactive LOMOTIL 2.5-0.025 MG TAB 1 to 2 four times a day as needed for diarrhea 10/13 LOMOTIL 2.5-0.025 MG TAB 5478723 DIPHENOXYLATE-ATROPINE Inactive IBUPROFEN 800 MG TABS 1 tab every 8 hours as needed IBUPROFEN 800 MG TABS 587691 IBUPROFEN Inactive PREDNISONE 20 MG TAB 2 tablets today, then 1 tablet days 2 through 4 PREDNISONE 20 MG TAB 534375 PREDNISONE Inactive AZITHROMYCIN 250 MG TABS 2 po qd x 1 day, then 1 po qd x 4 days AZITHROMYCIN 250 MG TABS 9882079 AZITHROMYCIN Inactive AZITHROMYCIN 250 MG TABS 2 po qd x 1 day, then 1 po qd x 4 days AZITHROMYCIN 250 MG TABS 9236180 AZITHROMYCIN Inactive NYSTATIN-TRIAMCINOLONE 751923-5.1 UNIT/GM-% CREA Apply to area BID NYSTATIN-TRIAMCINOLONE 827682-7.1 UNIT/GM-% CREA 4478599 NYSTATIN-TRIAMCINOLONE Inactive AZITHROMYCIN 250 MG TABS 2 po qd x 1 day, then 1 po qd x 4 days AZITHROMYCIN 250 MG TABS 0183723 AZITHROMYCIN Inactive AZITHROMYCIN 250 MG TABS 2 po qd x 1 day, then 1 po qd x 4 days AZITHROMYCIN 250 MG TABS 9866692 AZITHROMYCIN Inactive AZITHROMYCIN 250 MG TABS 2 po qd x 1 day, then 1 po qd x 4 days AZITHROMYCIN 250 MG TABS 7231087 AZITHROMYCIN Inactive Advance Directives Directive Description Start [...] Panel - Chemistry sodium, serum 141 mmol/L 024-893 9975/06/28 carbon dioxide, venous blood 31.0 mmol/L 21.0-32.0 [...] Negative Encounters Code Encounter Date Provider Facility CPT-89694 Level 3 Est. 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 Patient 09:20:13 RETURN [employer] Piotr Daley [facility] CPT-48443 Level 3 Est. Patient 09:49:40 CDT Piotr W [facility] CPT-51123 Level 3 Est. Patient 16:28:11 CDT Piotr Daley [facility] CPT-98797 Level 3 Est. Patient 12:41:58 [employer] Piotr Daley [facility] CPT-21114 Level 3 Est. Patient 09:21:24 CDT Piotr Daley [facility] CPT-86541 Level 3 Est. Patient 09:21:11 CDT Piotr Daley [facility] CPT-12827 Level 3 Est. Patient 11:16:29 [employer] Piotr Daley [facility] CPT-68997 Level 3 Est. Patient 18:40:19 [employer] Piotr Daley [facility] CPT-28930 Level 3 Est. Patient 19:30:50 CDT Piotr Daley [facility] CPT-98362 Level 3 Est. Patient 22:06:44 CDT Katrina Rinaldi MD PhD [facility] CPT-14548 Level 3 Est. Patient 14:20:00 CDT Piotr Daley [facility] CPT-35088 Level 3 Est. Patient 14:15:22 [employer] Piotr Daley [facility] CPT-05314 Level 3 Est. Patient 20:19:57 [employer] Piotr Daley [facility] CPT-30251 Level 3 Est. Patient 16:44:32 CDT Piotr Katie Daley [facility] CPT-37348 Level 3 Est. Patient 08:48:46 [employer] Piotr Daley [facility] CPT-62883 Level 3 Est. Patient 21:01:21 CDT Piotr Katie Edi [facility] Procedures Code Procedure Name Date Entry Date Standard Description CPT-61193 PT/INR - LAB USE ONLY 13:49:20 CDT CPT-98810 Venipuncture Draw Fee 13:49:19 CDT CPT-55701 PT/INR - LAB USE ONLY 15:48:49 CDT CPT-95364 Venipuncture Draw Fee 15:48:49 CDT CPT-18207 Venipuncture Draw Fee 11:31:59 CDT CPT-92238 PT/INR - LAB USE ONLY 11:31:59 CDT CPT-54141 Venipuncture Draw Fee 13:29:15 CDT CPT-58619 Thoracolumbar AP/Lat 15:19:19 [employer] CPT-G0438 Initial Annual Wellness Exam 12:18:54 [employer] CPT-16569 Knee 3V 09:57:38 CDT CPT-OV Office Visit 15:45:01 [employer] CPT-02463 Abd compl w upright 17:10:25 CDT
--- OUTSIDE RECORDS SUMMARY | 2018-07-18 09:28 | XMS REPORT | Clinical Summary ---
Author Author Admin, E Organization [employer] Address Unknown Phone Unavailable Allergies, Adverse Reactions, [...] of malignant neoplasm of prostate V10.46 Active lAina Meyers BASKET FILLER Personal history of malignant neoplasm of prostate Coronary artery disease 414.00 Active Alina Luigi BASKET FILLER Coronary atherosclerosis of unspecified type of vessel, [place] or graft Back pain, thoracic region, left [...] MG TABS 1 tablet daily WARFARIN SODIUM 01192389256 Active Emelyn Goode RPT,RMA Active TRAMADOL HCL 50 MG TABS 1 po tid with ES Tylenol TRAMADOL HCL 75318274628 Active Piotr Daley DO Active PREDNISONE 20 MG TAB 2 tablets today, then 1 tablet days 2 through 4 PREDNISONE 57956629160 No Longer Active Piotr Daley DO Active AZITHROMYCIN 250 MG TABS 2 po qd x 1 day, then 1 po qd x 4 days AZITHROMYCIN 48279912524 No Longer Active Piotr Daley DO Active IBUPROFEN 800 MG TABS 1 tab every 8 hours as needed IBUPROFEN 40542365124 No Longer Active Piotr Daley DO Active LOMOTIL 2.5-0.025 MG TAB 1 to 2 four times a day as needed for diarrhea 10/13 DIPHENOXYLATE-ATROPINE 08277899748 No Longer Active Piotr Daley DO Active WARFARIN SODIUM 4 MG TABS 1 tab every evening WARFARIN SODIUM 57387606621 No Longer Active Piotr Daley DO Active PREDNISONE 20 MG TAB 1 tablet twice daily for 2 days, then 1 tablet once daily for 2 days PREDNISONE 78703747636 No Longer Active Piotr Daley DO Active PROMETHAZINE HCL 25 MG TABS 1 four times a day as needed for nausea/vomiting PROMETHAZINE HCL 31976059941 No Longer Active Piotr Daley DO Active TUSSIONEX PENNKINETIC ER 10-8 MG/5ML LQCR 5ml po q12hr PRN Cough HYDROCOD POLST-CHLORPHEN POLST 03602333690 No Longer Active Piotr W Edi DO Active AZITHROMYCIN 250 MG TABS 2 po qd x 1 day, then 1 po qd x 4 days AZITHROMYCIN 53353688117 No Longer Active Piotr Daley DO Active AZITHROMYCIN 250 MG TABS 2 po qd x 1 day, then 1 po qd x 4 days AZITHROMYCIN 95300807589 No Longer Active Piotr Daley DO Active LISINOPRIL-HYDROCHLOROTHIAZIDE 10-12.5 MG TABS 1 tab by mouth daily LISINOPRIL-HYDROCHLOROTHIAZIDE 17557046951 Active Hilary Ma MA Active LISINOPRIL 10 MG TABS 1/2-1 tab po every other day LISINOPRIL 30816769304 No Longer Active Piotr Daley DO Active VENTOLIN HFA 108 (90 BASE) MCG/ACT AERS 2 puffs four times a day PRN cough ALBUTEROL SULFATE 52281898221 No Longer Active Piotr Daley DO Active NYSTATIN-TRIAMCINOLONE 082298-4.1 UNIT/GM-% CREA Apply to area BID NYSTATIN-TRIAMCINOLONE 73689121535 No Longer Active Alena Oswaldum HVAC TECHNICIAN Active PHISOHEX 3 % LIQD Use Directed HEXACHLOROPHENE 53197803145 No Longer Active Sandra [place] Active AZITHROMYCIN 250 MG TABS 2 po qd x 1 day, then 1 po qd x 4 days AZITHROMYCIN 99454857343 No Longer Active Katrina Rinaldi MD PhD Active AZITHROMYCIN 250 MG TABS 2 po qd x 1 day, then 1 po qd x 4 days AZITHROMYCIN 61079099457 No Longer Active Piotr Daley DO Active AZITHROMYCIN 500 MG SOLR 1 po q day AZITHROMYCIN 46494756967 No Longer Active Piotr Daley DO Active NYSTATIN-TRIAMCINOLONE 332454-6.1 UNIT/GM-% CREA apply bid 08/19 NYSTATIN-TRIAMCINOLONE 56503088385 No Longer Active Piotr Daley DO Active IBUPROFEN 800 MG TABS 1 po q 8 hours prn pain sparinly IBUPROFEN 46968631352 No Longer Active Piotr Daley DO Active VITAMIN D3 5000 UNIT CAPS 1 po daily CHOLECALCIFEROL 70827422995 Active Piotr Daley DO Active IBUPROFEN 800 MG TABS 1 po q 8 hours prn pain sparinly IBUPROFEN 800 MG TABS 950578 IBUPROFEN Inactive NYSTATIN-TRIAMCINOLONE 133030-7.1 UNIT/GM-% CREA apply bid 08/19 NYSTATIN-TRIAMCINOLONE 126023-7.1 UNIT/GM-% CREA 0747595 NYSTATIN- TRIAMCINOLONE Inactive AZITHROMYCIN 500 MG SOLR 1 po q day AZITHROMYCIN 500 MG SOLR 88572028446 AZITHROMYCIN Inactive VENTOLIN HFA 108 (90 BASE) MCG/ACT AERS 2 puffs four times a day PRN cough VENTOLIN HFA 108 (90 BASE) MCG/ACT AERS ALBUTEROL SULFATE Inactive LISINOPRIL 10 MG TABS 1/2-1 tab po every other day LISINOPRIL 10 MG TABS 662795 LISINOPRIL Inactive TUSSIONEX PENNKINETIC ER 10-8 MG/5ML LQCR 5ml po q12hr PRN Cough TUSSIONEX PENNKINETIC ER 10-8 MG/5ML LQCR HYDROCOD POLST- CHLORPHEN POLST Inactive PROMETHAZINE HCL 25 MG TABS 1 four times a day as needed for nausea/vomiting PROMETHAZINE HCL 25 MG TABS 878353 PROMETHAZINE HCL Inactive PREDNISONE 20 MG TAB 1 tablet twice daily for 2 days, then 1 tablet once daily for 2 days PREDNISONE 20 MG TAB 713980 PREDNISONE Inactive WARFARIN SODIUM 4 MG TABS 1 tab every evening WARFARIN SODIUM 4 MG TABS 514710 WARFARIN SODIUM Inactive LOMOTIL 2.5-0.025 MG TAB 1 to 2 four times a day as needed for diarrhea 10/13 LOMOTIL 2.5-0.025 MG TAB 1674470 DIPHENOXYLATE-ATROPINE Inactive IBUPROFEN 800 MG TABS 1 tab every 8 hours as needed IBUPROFEN 800 MG TABS 880545 IBUPROFEN Inactive PREDNISONE 20 MG TAB 2 tablets today, then 1 tablet days 2 through 4 PREDNISONE 20 MG TAB 954021 PREDNISONE Inactive AZITHROMYCIN 250 MG TABS 2 po qd x 1 day, then 1 po qd x 4 days AZITHROMYCIN 250 MG TABS 8825863 AZITHROMYCIN Inactive AZITHROMYCIN 250 MG TABS 2 po qd x 1 day, then 1 po qd x 4 days AZITHROMYCIN 250 MG TABS 6986398 AZITHROMYCIN Inactive NYSTATIN-TRIAMCINOLONE 419359-0.1 UNIT/GM-% CREA Apply to area BID NYSTATIN-TRIAMCINOLONE 228091-7.1 UNIT/GM-% CREA 4334757 NYSTATIN-TRIAMCINOLONE Inactive AZITHROMYCIN 250 MG TABS 2 po qd x 1 day, then 1 po qd x 4 days AZITHROMYCIN 250 MG TABS 5935064 AZITHROMYCIN Inactive AZITHROMYCIN 250 MG TABS 2 po qd x 1 day, then 1 po qd x 4 days AZITHROMYCIN 250 MG TABS 1617606 AZITHROMYCIN Inactive AZITHROMYCIN 250 MG TABS 2 po qd x 1 day, then 1 po qd x 4 days AZITHROMYCIN 250 MG TABS 9678970 AZITHROMYCIN Inactive Advance Directives Directive Description Start [...] Panel - Chemistry sodium, serum 141 mmol/L 999-298 8726/06/28 carbon dioxide, venous blood 31.0 mmol/L 21.0-32.0 [...] 5.0-8.5 Encounters Code Encounter Date Provider Facility CPT-88088 Level 3 Est. 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 Patient 09:20:13 FLUID POWER MECHANIC Piotr Daley [facility] CPT-90726 Level 3 Est. Patient 09:49:40 CDT Piotr Daley [facility] CPT-76104 Level 3 Est. Patient 16:28:11 CDT Piotr Daley [facility] CPT-16893 Level 3 Est. Patient 12:41:58 FLUID POWER MECHANIC Piotr Daley [facility] CPT-41729 Level 3 Est. Patient 09:21:24 CDT Piotr Daley [facility] CPT-07159 Level 3 Est. Patient 09:21:11 CDT Piotr Daley [facility] CPT-32503 Level 3 Est. Patient 11:16:29 FLUID POWER MECHANIC Piotr Daley [facility] CPT-98990 Level 3 Est. Patient 18:40:19 FLUID POWER MECHANIC Piotr Daley [facility] CPT-00877 Level 3 Est. Patient 19:30:50 CDT Piotr Daley [facility] CPT-66528 Level 3 Est. Patient 22:06:44 CDT Katrina Rinaldi MD [facility] CPT-82100 Level 3 Est. Patient 14:20:00 CDT Piotr Daley [facility] CPT-50205 Level 3 Est. Patient 14:15:22 FLUID POWER MECHANIC Piotr Daley [facility] CPT-25304 Level 3 Est. Patient 20:19:57 FLUID POWER MECHANIC Piotr Daley [facility] CPT-11839 Level 3 Est. Patient 16:44:32 CDT Piotr Daley [facility] CPT-11670 Level 3 Est. Patient 08:48:46 FLUID POWER MECHANIC Piotr Daley [facility] CPT-66295 Level 3 Est. Patient 21:01:21 CDT Piotr Daley [facility] Procedures Code Procedure Name Date Entry Date Standard Description CPT-75964 Venipuncture Draw Fee 11:31:59 CDT CPT-29083 PT/INR - LAB USE ONLY 11:31:59 CDT CPT-99958 Venipuncture Draw Fee 13:29:15 CDT CPT-74602 Thoracolumbar AP/Lat 15:19:19 FLUID POWER MECHANIC CPT-G0438 Initial Annual Wellness Exam 12:18:54 FLUID POWER MECHANIC CPT-11816 Knee 3V 09:57:38 CDT CPT-OV Office Visit 15:45:01 FLUID POWER MECHANIC CPT-80809 Abd compl w upright 17:10:25 CDT
--- OUTSIDE RECORDS SUMMARY | 2018-07-18 09:28 | XMS REPORT | Clinical Summary ---
Author Author Admin, Isidra Organization [employer] Address Unknown Phone Unavailable Allergies, Adverse Reactions, [...] Coronary atherosclerosis of unspecified type of vessel, [place] or graft Back pain, thoracic region, left [...] times a day as needed ALBUTEROL SULFATE 21702199034 Active Matthew Rangel MD Active PREDNISONE 20 MG TAB 2 tabs daily for 3 days, 1 tab daily for 3 days, 1/2 tab daily for 2 days PREDNISONE 09323847761 Active Matthew Rangel MD Active TRAMADOL HCL 50 MG TABS 1 po tid with ES Tylenol TRAMADOL HCL 09579951951 No Longer Active Matthew Rangel MD Active GABAPENTIN 300 MG CAPS 1 po q hs for nerve pain GABAPENTIN 81415321097 No Longer Active Matthew Rangel MD Active WARFARIN SODIUM 5 MG TABS 1 tablet daily WARFARIN SODIUM 24551960150 Active Piotr Daley DO Active PREDNISONE 20 MG TAB 2 tablets today, then 1 tablet days 2 through 4 PREDNISONE 17909995731 No Longer Active Piotr Daley DO Active AZITHROMYCIN 250 MG TABS 2 po qd x 1 day, then 1 po qd x 4 days AZITHROMYCIN 62637418642 No Longer Active Piotr Daley DO Active IBUPROFEN 800 MG TABS 1 tab every 8 hours as needed IBUPROFEN 80096459076 No Longer Active Piotr Daley DO Active LOMOTIL 2.5-0.025 MG TAB 1 to 2 four times a day as needed for diarrhea 10/13 DIPHENOXYLATE-ATROPINE 74555479110 No Longer Active Piotr Daley DO Active WARFARIN SODIUM 4 MG TABS 1 tab every evening WARFARIN SODIUM 10176673937 No Longer Active Piotr Daley DO Active PREDNISONE 20 MG TAB 1 tablet twice daily for 2 days, then 1 tablet once daily for 2 days PREDNISONE 65170156546 No Longer Active Piotr Daley DO Active PROMETHAZINE HCL 25 MG TABS 1 four times a day as needed for nausea/vomiting PROMETHAZINE HCL 57430890448 No Longer Active Piotr Daley DO Active TUSSIONEX PENNKINETIC ER 10-8 MG/5ML LQCR 5ml po q12hr PRN Cough HYDROCOD POLST-CHLORPHEN POLST 24133188144 No Longer Active Piotr Daley DO Active AZITHROMYCIN 250 MG TABS 2 po qd x 1 day, then 1 po qd x 4 days AZITHROMYCIN 58618269965 No Longer Active Piotr Daley DO Active AZITHROMYCIN 250 MG TABS 2 po qd x 1 day, then 1 po qd x 4 days AZITHROMYCIN 46904408239 No Longer Active Piotr Daley DO Active LISINOPRIL-HYDROCHLOROTHIAZIDE 10-12.5 MG TABS 1 tab by mouth daily LISINOPRIL-HYDROCHLOROTHIAZIDE 65737813571 Active Simi Meyers Active LISINOPRIL 10 MG TABS 1/2-1 tab po every other day LISINOPRIL 28495634845 No Longer Active Piotr Daley DO Active VENTOLIN HFA 108 (90 BASE) MCG/ACT AERS 2 puffs four times a day PRN cough ALBUTEROL SULFATE 85635880946 No Longer Active Piotr Daley DO Active NYSTATIN-TRIAMCINOLONE 141268-8.1 UNIT/GM-% CREA Apply to area BID NYSTATIN-TRIAMCINOLONE 26050812305 No Longer Active Alena Chavira [employer] ADMINISTRATOR Active PHISOHEX 3 % LIQD Use Directed HEXACHLOROPHENE 19757108026 No Longer Active Sandra Burciagar Active AZITHROMYCIN 250 MG TABS 2 po qd x 1 day, then 1 po qd x 4 days AZITHROMYCIN 27934564218 No Longer Active Katrina Rinaldi MD PhD Active AZITHROMYCIN 250 MG TABS 2 po qd x 1 day, then 1 po qd x 4 days AZITHROMYCIN 50823006037 No Longer Active Piotr Daley DO Active AZITHROMYCIN 500 MG SOLR 1 po q day AZITHROMYCIN 84576643821 No Longer Active Piotr Daley DO Active NYSTATIN-TRIAMCINOLONE 430347-4.1 UNIT/GM-% CREA apply bid 08/19 NYSTATIN-TRIAMCINOLONE 59909032234 No Longer Active Piotr Daley DO Active IBUPROFEN 800 MG TABS 1 po q 8 hours prn pain sparinly IBUPROFEN 30910936018 No Longer Active Piotr Daley DO Active VITAMIN D3 5000 UNIT CAPS 1 po daily CHOLECALCIFEROL 49697882582 Active Piotr Daley DO Active IBUPROFEN 800 MG TABS 1 po q 8 hours prn pain sparinly IBUPROFEN 800 MG TABS 025655 IBUPROFEN Inactive NYSTATIN-TRIAMCINOLONE 044530-5.1 UNIT/GM-% CREA apply bid 08/19 NYSTATIN-TRIAMCINOLONE 041686-2.1 UNIT/GM-% CREA 3115345 NYSTATIN- TRIAMCINOLONE Inactive AZITHROMYCIN 500 MG SOLR 1 po q day AZITHROMYCIN 500 MG SOLR 71460349656 AZITHROMYCIN Inactive VENTOLIN HFA 108 (90 BASE) MCG/ACT AERS 2 puffs four times a day PRN cough VENTOLIN HFA 108 (90 BASE) MCG/ACT AERS ALBUTEROL SULFATE Inactive LISINOPRIL 10 MG TABS 1/2-1 tab po every other day LISINOPRIL 10 MG TABS 968761 LISINOPRIL Inactive TUSSIONEX PENNKINETIC ER 10-8 MG/5ML LQCR 5ml po q12hr PRN Cough TUSSIONEX PENNKINETIC ER 10-8 MG/5ML LQCR HYDROCOD POLST- CHLORPHEN POLST Inactive PROMETHAZINE HCL 25 MG TABS 1 four times a day as needed for nausea/vomiting PROMETHAZINE HCL 25 MG TABS 751537 PROMETHAZINE HCL Inactive PREDNISONE 20 MG TAB 1 tablet twice daily for 2 days, then 1 tablet once daily for 2 days PREDNISONE 20 MG TAB 467853 PREDNISONE Inactive WARFARIN SODIUM 4 MG TABS 1 tab every evening WARFARIN SODIUM 4 MG TABS 938095 WARFARIN SODIUM Inactive LOMOTIL 2.5-0.025 MG TAB 1 to 2 four times a day as needed for diarrhea 10/13 LOMOTIL 2.5-0.025 MG TAB 5969802 DIPHENOXYLATE-ATROPINE Inactive IBUPROFEN 800 MG TABS 1 tab every 8 hours as needed IBUPROFEN 800 MG TABS 739003 IBUPROFEN Inactive PREDNISONE 20 MG TAB 2 tablets today, then 1 tablet days 2 through 4 PREDNISONE 20 MG TAB 695579 PREDNISONE Inactive GABAPENTIN 300 MG CAPS 1 po q hs for nerve pain GABAPENTIN 300 MG CAPS 909872 GABAPENTIN Inactive TRAMADOL HCL 50 MG TABS 1 po tid with ES Tylenol TRAMADOL HCL 50 MG TABS 881477 TRAMADOL HCL Inactive AZITHROMYCIN 250 MG TABS 2 po qd x 1 day, then 1 po qd x 4 days AZITHROMYCIN 250 MG TABS 3410703 AZITHROMYCIN Inactive AZITHROMYCIN 250 MG TABS 2 po qd x 1 day, then 1 po qd x 4 days AZITHROMYCIN 250 MG TABS 8084374 AZITHROMYCIN Inactive NYSTATIN-TRIAMCINOLONE 291656-2.1 UNIT/GM-% CREA Apply to area BID NYSTATIN-TRIAMCINOLONE 181986-0.1 UNIT/GM-% CREA 2882871 NYSTATIN-TRIAMCINOLONE Inactive AZITHROMYCIN 250 MG TABS 2 po qd x 1 day, then 1 po qd x 4 days AZITHROMYCIN 250 MG TABS 0960235 AZITHROMYCIN Inactive AZITHROMYCIN 250 MG TABS 2 po qd x 1 day, then 1 po qd x 4 days AZITHROMYCIN 250 MG TABS 4553884 AZITHROMYCIN Inactive AZITHROMYCIN 250 MG TABS 2 po qd x 1 day, then 1 po qd x 4 days AZITHROMYCIN 250 MG TABS 5645218 AZITHROMYCIN Inactive Advance Directives Directive Description Start [...] Panel - Chemistry sodium, serum 141 mmol/L 750-013 1625/01/24 potassium, serum 4.3 mmol/L 3.5-5.2 chloride, serum 103 mmol/L 98-107 carbon dioxide, venous blood 30.7 mmol/L 21.0-32.0 blood glucose 90 mg/dL 65-110 calcium, serum 8.5 mg/dL 8.5-10.1 urea nitrogen, blood 16 mg/dL 7-18 creatinine, serum 1.09 mg/dL 0.55-1.30 Lab Report: Comp. Metabolic Panel - Chemistry sodium, serum 141 mmol/L 891-625 5050/06/28 carbon dioxide, venous blood 31.0 mmol/L 21.0-32.0 [...] 1.0-3.5 Encounters Code Encounter Date Provider Facility CPT-35709 Level 3 Est. Patient 10:48:17 [employer] Matthew Rangel MD [facility] CPT-52996 Level 4 Est. Patient 17:15:07 [employer] Piotr Daley [facility] CPT-34143 Level 3 Est. Patient 12:46:13 [employer] Piotr Daley [facility] CPT-44452 Level 3 Est. Patient 15:14:31 [employer] Piotr Daley [facility] CPT-34414 Level 3 Est. Patient 09:20:13 [employer] Piotr Daley [facility] CPT-26224 Level 3 Est. Patient 09:49:40 CDT Piotr Wilson [facility] CPT-69812 Level 3 Est. Patient 16:28:11 CDT Piotr Daley [facility] CPT-79900 Level 3 Est. Patient 12:41:58 [employer] Piotr Daley [facility] CPT-06563 Level 3 Est. Patient 09:21:24 CDT Piotr Daley [facility] CPT-47955 Level 3 Est. Patient 09:21:11 CDT Piotr Wilson [facility] CPT-55260 Level 3 Est. Patient 11:16:29 [employer] Piotr Daley [facility] CPT-61652 Level 3 Est. Patient 18:40:19 [employer] Piotr Daley [facility] CPT-86544 Level 3 Est. Patient 19:30:50 CDT Piotr Wilson [facility] CPT-74785 Level 3 Est. Patient 22:06:44 CDT Katrina Rinaldi MD PhD [facility] CPT-36334 Level 3 Est. Patient 14:20:00 CDT Piotr Daley [facility] CPT-63980 Level 3 Est. Patient 14:15:22 [employer] Piotr Daley [facility] CPT-22041 Level 3 Est. Patient 20:19:57 [employer] Piotr Daley [facility] CPT-46613 Level 3 Est. Patient 16:44:32 CDT Piotr Daley [facility] CPT-18640 Level 3 Est. Patient 08:48:46 [employer] Piotr Daley [facility] CPT-05242 Level 3 Est. Patient 21:01:21 CDT Piotr Daley [facility] Procedures Code Procedure Name Date Entry Date Standard Description CPT-44648 BMP - LAB USE ONLY 17:19:11 [employer] CPT-43401 PT/INR - LAB USE ONLY 17:19:10 [employer] CPT-62307 Venipuncture Draw Fee 17:19:10 [employer] CPT-86153 PT/INR - LAB USE ONLY 08:12:25 [employer] CPT-62298 Venipuncture Draw Fee 08:12:24 [employer] CPT-56696 Venipuncture Draw Fee 11:31:07 [employer] CPT-53559 TPSA - LAB USE ONLY 11:31:07 [employer] CPT-21791 PT/INR - LAB USE ONLY 11:31:07 [employer] CPT-G0439 [facility] Annual Wellness Exam 09:59:29 [employer] CPT-52819 Creatinine - LAB USE ONLY 14:37:55 [employer] CPT-49764 PT/INR - LAB USE ONLY 14:37:55 [employer] CPT-89454 Venipuncture Draw Fee 14:37:55 [employer] CPT-85081 LS spine comp w obliques - XRAY USE ONLY 12:59:25 [employer] CPT-00310 PT/INR - LAB USE ONLY 13:49:20 CDT CPT-30008 Venipuncture Draw Fee 13:49:19 CDT CPT-08454 PT/INR - LAB USE ONLY 15:48:49 CDT CPT-18115 Venipuncture Draw Fee 15:48:49 CDT CPT-15091 Venipuncture Draw Fee 11:31:59 CDT CPT-29933 PT/INR - LAB USE ONLY 11:31:59 CDT CPT-38933 Venipuncture Draw Fee 13:29:15 CDT CPT-23787 Thoracolumbar AP/Lat 15:19:19 [employer] CPT-G0438 Initial Annual Wellness Exam 12:18:54 [employer] CPT-96446 Knee 3V 09:57:38 CDT CPT-OV Office Visit 15:45:01 [employer] CPT-35133 Abd compl w upright 17:10:25 CDT
--- OUTSIDE RECORDS SUMMARY | 2018-07-18 09:29 | XMS REPORT | Clinical Summary ---
Author Author Admin, Isidra Organization [employer] Address Unknown Phone Unavailable Allergies, Adverse Reactions, [...] Coronary atherosclerosis of unspecified type of vessel, [place] or graft Back pain, thoracic region, left [...] times a day as needed ALBUTEROL SULFATE 65817502593 Active Matthew Rangel MD Active PREDNISONE 20 MG TAB 2 tabs daily for 3 days, 1 tab daily for 3 days, 1/2 tab daily for 2 days PREDNISONE 39993221948 Active Matthew Rangel MD Active TRAMADOL HCL 50 MG TABS 1 po tid with ES Tylenol TRAMADOL HCL 85745587877 No Longer Active Matthew Rangel MD Active GABAPENTIN 300 MG CAPS 1 po q hs for nerve pain GABAPENTIN 45239598843 No Longer Active Matthew Rangel MD Active WARFARIN SODIUM 5 MG TABS 1 tablet daily WARFARIN SODIUM 51391595756 Active Pitor Daley DO Active PREDNISONE 20 MG TAB 2 tablets today, then 1 tablet days 2 through 4 PREDNISONE 08242983906 No Longer Active Piotr Daley DO Active AZITHROMYCIN 250 MG TABS 2 po qd x 1 day, then 1 po qd x 4 days AZITHROMYCIN 02999900285 No Longer Active Piotr Daley DO Active IBUPROFEN 800 MG TABS 1 tab every 8 hours as needed IBUPROFEN 23612269103 No Longer Active Piotr Daley DO Active LOMOTIL 2.5-0.025 MG TAB 1 to 2 four times a day as needed for diarrhea 10/13 DIPHENOXYLATE-ATROPINE 15071046741 No Longer Active Piotr Daley DO Active WARFARIN SODIUM 4 MG TABS 1 tab every evening WARFARIN SODIUM 61862109394 No Longer Active Piotr Daley DO Active PREDNISONE 20 MG TAB 1 tablet twice daily for 2 days, then 1 tablet once daily for 2 days PREDNISONE 05853717359 No Longer Active Piotr Daley DO Active PROMETHAZINE HCL 25 MG TABS 1 four times a day as needed for nausea/vomiting PROMETHAZINE HCL 90168583505 No Longer Active Piotr Daley DO Active TUSSIONEX PENNKINETIC ER 10-8 MG/5ML LQCR 5ml po q12hr PRN Cough HYDROCOD POLST-CHLORPHEN POLST 91086707786 No Longer Active Piotr Daley DO Active AZITHROMYCIN 250 MG TABS 2 po qd x 1 day, then 1 po qd x 4 days AZITHROMYCIN 49079578248 No Longer Active Piotr Daley DO Active AZITHROMYCIN 250 MG TABS 2 po qd x 1 day, then 1 po qd x 4 days AZITHROMYCIN 08207355673 No Longer Active Piotr Daley DO Active LISINOPRIL-HYDROCHLOROTHIAZIDE 10-12.5 MG TABS 1 tab by mouth daily LISINOPRIL-HYDROCHLOROTHIAZIDE 14527852192 Active Simi Meyers Active LISINOPRIL 10 MG TABS 1/2-1 tab po every other day LISINOPRIL 44379936803 No Longer Active Piotr Daley DO Active VENTOLIN HFA 108 (90 BASE) MCG/ACT AERS 2 puffs four times a day PRN cough ALBUTEROL SULFATE 48418193975 No Longer Active Piotr Daley DO Active NYSTATIN-TRIAMCINOLONE 545933-2.1 UNIT/GM-% CREA Apply to area BID NYSTATIN-TRIAMCINOLONE 15368482604 No Longer Active Alena Chavira SHIFT MECHANIC Active PHISOHEX 3 % LIQD Use Directed HEXACHLOROPHENE 24287909999 No Longer Active Sandra Burciagar Active AZITHROMYCIN 250 MG TABS 2 po qd x 1 day, then 1 po qd x 4 days AZITHROMYCIN 43263134421 No Longer Active Katrina Rinaldi MD PhD Active AZITHROMYCIN 250 MG TABS 2 po qd x 1 day, then 1 po qd x 4 days AZITHROMYCIN 91515522758 No Longer Active Piotr Daley DO Active AZITHROMYCIN 500 MG SOLR 1 po q day AZITHROMYCIN 70472240119 No Longer Active Piotr Daley DO Active NYSTATIN-TRIAMCINOLONE 844854-6.1 UNIT/GM-% CREA apply bid 08/19 NYSTATIN-TRIAMCINOLONE 34425106746 No Longer Active Piotr Daley DO Active IBUPROFEN 800 MG TABS 1 po q 8 hours prn pain sparinly IBUPROFEN 64848823365 No Longer Active Piotr Daley DO Active VITAMIN D3 5000 UNIT CAPS 1 po daily CHOLECALCIFEROL 58874576594 Active Piotr Daley DO Active IBUPROFEN 800 MG TABS 1 po q 8 hours prn pain sparinly IBUPROFEN 800 MG TABS 560196 IBUPROFEN Inactive NYSTATIN-TRIAMCINOLONE 815271-1.1 UNIT/GM-% CREA apply bid 08/19 NYSTATIN-TRIAMCINOLONE 145121-0.1 UNIT/GM-% CREA 8462716 NYSTATIN- TRIAMCINOLONE Inactive AZITHROMYCIN 500 MG SOLR 1 po q day AZITHROMYCIN 500 MG SOLR 59818706283 AZITHROMYCIN Inactive VENTOLIN HFA 108 (90 BASE) MCG/ACT AERS 2 puffs four times a day PRN cough VENTOLIN HFA 108 (90 BASE) MCG/ACT AERS ALBUTEROL SULFATE Inactive LISINOPRIL 10 MG TABS 1/2-1 tab po every other day LISINOPRIL 10 MG TABS 770218 LISINOPRIL Inactive TUSSIONEX PENNKINETIC ER 10-8 MG/5ML LQCR 5ml po q12hr PRN Cough TUSSIONEX PENNKINETIC ER 10-8 MG/5ML LQCR HYDROCOD POLST- CHLORPHEN POLST Inactive PROMETHAZINE HCL 25 MG TABS 1 four times a day as needed for nausea/vomiting PROMETHAZINE HCL 25 MG TABS 183260 PROMETHAZINE HCL Inactive PREDNISONE 20 MG TAB 1 tablet twice daily for 2 days, then 1 tablet once daily for 2 days PREDNISONE 20 MG TAB 086705 PREDNISONE Inactive WARFARIN SODIUM 4 MG TABS 1 tab every evening WARFARIN SODIUM 4 MG TABS 087652 WARFARIN SODIUM Inactive LOMOTIL 2.5-0.025 MG TAB 1 to 2 four times a day as needed for diarrhea 10/13 LOMOTIL 2.5-0.025 MG TAB 7741386 DIPHENOXYLATE-ATROPINE Inactive IBUPROFEN 800 MG TABS 1 tab every 8 hours as needed IBUPROFEN 800 MG TABS 175654 IBUPROFEN Inactive PREDNISONE 20 MG TAB 2 tablets today, then 1 tablet days 2 through 4 PREDNISONE 20 MG TAB 139702 PREDNISONE Inactive GABAPENTIN 300 MG CAPS 1 po q hs for nerve pain GABAPENTIN 300 MG CAPS 103500 GABAPENTIN Inactive TRAMADOL HCL 50 MG TABS 1 po tid with ES Tylenol TRAMADOL HCL 50 MG TABS 993780 TRAMADOL HCL Inactive AZITHROMYCIN 250 MG TABS 2 po qd x 1 day, then 1 po qd x 4 days AZITHROMYCIN 250 MG TABS 6343848 AZITHROMYCIN Inactive AZITHROMYCIN 250 MG TABS 2 po qd x 1 day, then 1 po qd x 4 days AZITHROMYCIN 250 MG TABS 3568028 AZITHROMYCIN Inactive NYSTATIN-TRIAMCINOLONE 358064-6.1 UNIT/GM-% CREA Apply to area BID NYSTATIN-TRIAMCINOLONE 111514-2.1 UNIT/GM-% CREA 0624480 NYSTATIN-TRIAMCINOLONE Inactive AZITHROMYCIN 250 MG TABS 2 po qd x 1 day, then 1 po qd x 4 days AZITHROMYCIN 250 MG TABS 4145804 AZITHROMYCIN Inactive AZITHROMYCIN 250 MG TABS 2 po qd x 1 day, then 1 po qd x 4 days AZITHROMYCIN 250 MG TABS 5866189 AZITHROMYCIN Inactive AZITHROMYCIN 250 MG TABS 2 po qd x 1 day, then 1 po qd x 4 days AZITHROMYCIN 250 MG TABS 8396408 AZITHROMYCIN Inactive Advance Directives Directive Description Start Date LIVING WILL LIVING WILL Vital Signs Date Name Value Unit Range Description blood pressure, diastolic - 8462-4 78 mm[Hg] BP hpan blood pressure, systolic - 8480-6 128 mm[Hg] BP sys pulse rate E&M - 8867-4 64 /min Heart rate temperature E&M 96.6 [degF] Body temperature weight E&M - 3141-9 220 [lb_av] Weight Measured blood pressure, diastolic - 8462-4 69 mm[Hg] BP hpan blood pressure, systolic - 8480-6 117 mm[Hg] [...] Panel - Chemistry sodium, serum 141 mmol/L 080-053 4019/01/24 potassium, serum 4.3 mmol/L 3.5-5.2 chloride, serum 103 mmol/L 98-107 carbon dioxide, venous blood 30.7 mmol/L 21.0-32.0 blood glucose 90 mg/dL 65-110 calcium, serum 8.5 mg/dL 8.5-10.1 urea nitrogen, blood 16 mg/dL 7-18 creatinine, serum 1.09 mg/dL 0.55-1.30 Lab Report: Comp. Metabolic Panel - Chemistry sodium, serum 141 mmol/L 776-418 9116/06/28 carbon dioxide, venous blood 31.0 mmol/L 21.0-32.0 [...] (INR) 4.2 1.0-3.5 international normalized ratio (INR) 3.0 1.0-3.5 prothrombin time (patient) 18.3 SECS s 11.1-13.4 international normalized ratio (INR) 2.3 1.0-3.5 prothrombin time (patient) 15.4 SECS s 11.1-13.4 international normalized ratio (INR) 1.7 1.0-3.5 prothrombin time (patient) 22.8 SECS s 11.1-13.4 international normalized ratio (INR) 2.2 1.0-3.5 prothrombin time (patient) 18.1 SECS s 11.1-13.4 prothrombin time (patient) 24.3 SECS s 11.1-13.4 international normalized ratio (INR) 3.3 1.0-3.5 prothrombin time (patient) 20.8 SECS s 11.1-13.4 international normalized ratio (INR) 2.5 1.0-3.5 prothrombin time (patient) 19.8 SECS s 11.1-13.4 international normalized ratio (INR) 2.3 1.0-3.5 prothrombin time (patient) 23.8 SECS s 11.1-13.4 international normalized ratio (INR) 3.2 1.0-3.5 Encounters Code Encounter Date Provider Facility CPT-30881 Level 3 Est. Patient 10:48:17 [employer] Matthew Rangel MD [facility] CPT-64732 Level 4 Est. Patient 17:15:07 [employer] Piotr Daley [facility] CPT-38020 Level 3 Est. Patient 12:46:13 [employer] Piotr Daley [facility] CPT-64776 Level 3 Est. Patient 15:14:31 [employer] Piotr Daley [facility] CPT-41790 Level 3 Est. Patient 09:20:13 [employer] Piotr Daley [facility] CPT-18861 Level 3 Est. Patient 09:49:40 CDT Piotr Wilson [facility] CPT-02267 Level 3 Est. Patient 16:28:11 CDT Piotr Daley [facility] CPT-22936 Level 3 Est. Patient 12:41:58 [employer] Piotr Daley [facility] CPT-26530 Level 3 Est. Patient 09:21:24 CDT Piotr Daley [facility] CPT-98742 Level 3 Est. Patient 09:21:11 CDT Piotr Wilson [facility] CPT-48866 Level 3 Est. Patient 11:16:29 [employer] Piotr Daley [facility] CPT-63829 Level 3 Est. Patient 18:40:19 [employer] Piotr Daley [facility] CPT-20289 Level 3 Est. Patient 19:30:50 CDT Piotr Wilson [facility] CPT-91472 Level 3 Est. Patient 22:06:44 CDT Katrina Rinaldi MD PhD [facility] CPT-61890 Level 3 Est. Patient 14:20:00 CDT Piotr Daley [facility] CPT-48766 Level 3 Est. Patient 14:15:22 [employer] Piotr Daley [facility] CPT-50167 Level 3 Est. Patient 20:19:57 [employer] Piotr Daley [facility] CPT-25093 Level 3 Est. Patient 16:44:32 CDT Piotr Daley [facility] CPT-50238 Level 3 Est. Patient 08:48:46 [employer] Piotr Daley [facility] CPT-82050 Level 3 Est. Patient 21:01:21 CDT Piotr Daley [facility] Procedures Code Procedure Name Date Entry Date Standard Description CPT-31227 BMP - LAB USE ONLY 17:19:11 [employer] CPT-94860 PT/INR - LAB USE ONLY 17:19:10 [employer] CPT-38942 Venipuncture Draw Fee 17:19:10 [employer] CPT-06950 PT/INR - LAB USE ONLY 08:12:25 [employer] CPT-95428 Venipuncture Draw Fee 08:12:24 [employer] CPT-03907 Venipuncture Draw Fee 11:31:07 [employer] CPT-48228 TPSA - LAB USE ONLY 11:31:07 [employer] CPT-29569 PT/INR - LAB USE ONLY 11:31:07 [employer] CPT-G0439 [facility] Annual Wellness Exam 09:59:29 [employer] CPT-12983 Creatinine - LAB USE ONLY 14:37:55 [employer] CPT-40152 PT/INR - LAB USE ONLY 14:37:55 [employer] CPT-00577 Venipuncture Draw Fee 14:37:55 [employer] CPT-21278 LS spine comp w obliques - XRAY USE ONLY 12:59:25 [employer] CPT-08317 PT/INR - LAB USE ONLY 13:49:20 CDT CPT-12726 Venipuncture Draw Fee 13:49:19 CDT CPT-13119 PT/INR - LAB USE ONLY 15:48:49 CDT CPT-92146 Venipuncture Draw Fee 15:48:49 CDT CPT-18025 Venipuncture Draw Fee 11:31:59 CDT CPT-29172 PT/INR - LAB USE ONLY 11:31:59 CDT CPT-85300 Venipuncture Draw Fee 13:29:15 CDT CPT-37120 Thoracolumbar AP/Lat 15:19:19 [employer] CPT-G0438 Initial Annual Wellness Exam 12:18:54 [employer] CPT-34490 Knee 3V 09:57:38 CDT CPT-OV Office Visit 15:45:01 [employer] CPT-71628 Abd compl w upright 17:10:25 CDT
--- OUTSIDE RECORDS SUMMARY | 2018-07-18 09:30 | XMS REPORT | Clinical Summary ---
Author Author Admin, E Organization [facility] Address Unknown Phone Unavailable Allergies, Adverse Reactions, [...] neoplasm of prostate V10.46 Active Alina Meyers ORDER PULLER Personal history of malignant neoplasm of prostate Coronary artery disease 414.00 Active Alina Luigi ORDER PULLER Coronary atherosclerosis of unspecified type of vessel, [place] or graft Back pain, thoracic region, left 724.1 Inactive Piotr Katie Daley DO Pain in thoracic spine Thoracic back pain 724.5 Active Piotr Katie Daley DO Backache, unspecified Back pain lumbar 724.2 Active Piotr Daley DO Lumbago HEALTH MAINTENANCE EXAM ICD-V70.0 Inactive Katrina Rinaldi MD PhD BRONCHITIS-ACUTE ICD-466.0 Inactive Piotr Daley DO SCREENING, COLON CANCER ICD-V76.51 Inactive Katrina Rinaldi MD PhD BRONCHITIS-ACUTE ICD-466.0 Inactive Piotr Katie Edi DO Bronchitis-Acute ICD-466.0 Inactive Piotr Wilson Edi DO Back pain, thoracic region, left ICD-724.1 Inactive Piotr Daley DO FLANK PAIN, RIGHT ICD-789.09 Inactive Katrina Rinaldi MD PhD Medication List Medication Instructions Start Date Stop Date Generic Name NDC Status Provider Patient Instruction WARFARIN SODIUM 5 MG TABS 1 tablet daily WARFARIN SODIUM 90980186411 Active Emelyn Goode RPT,RMA Active TRAMADOL HCL 50 MG TABS 1 po tid with ES Tylenol TRAMADOL HCL 56365742649 Active Piotr Daley DO Active PREDNISONE 20 MG TAB 2 tablets today, then 1 tablet days 2 through 4 PREDNISONE 02772674294 No Longer Active Piotr Daley DO Active AZITHROMYCIN 250 MG TABS 2 po qd x 1 day, then 1 po qd x 4 days AZITHROMYCIN 96164761218 No Longer Active Piotr Daley DO Active IBUPROFEN 800 MG TABS 1 tab every 8 hours as needed IBUPROFEN 44301446169 No Longer Active Piotr Daley DO Active LOMOTIL 2.5-0.025 MG TAB 1 to 2 four times a day as needed for diarrhea 10/13 DIPHENOXYLATE-ATROPINE 41523023751 No Longer Active Piotr Daley DO Active WARFARIN SODIUM 4 MG TABS 1 tab every evening WARFARIN SODIUM 70698531967 No Longer Active Piotr Daley DO Active PREDNISONE 20 MG TAB 1 tablet twice daily for 2 days, then 1 tablet once daily for 2 days PREDNISONE 64378343304 No Longer Active Piotr Daley DO Active PROMETHAZINE HCL 25 MG TABS 1 four times a day as needed for nausea/vomiting PROMETHAZINE HCL 54901105745 No Longer Active Piotr Daley DO Active TUSSIONEX PENNKINETIC ER 10-8 MG/5ML LQCR 5ml po q12hr PRN Cough HYDROCOD POLST-CHLORPHEN POLST 50837233244 No Longer Active Piotr W Edi DO Active AZITHROMYCIN 250 MG TABS 2 po qd x 1 day, then 1 po qd x 4 days AZITHROMYCIN 79592220727 No Longer Active Piotr Daley DO Active AZITHROMYCIN 250 MG TABS 2 po qd x 1 day, then 1 po qd x 4 days AZITHROMYCIN 25188052524 No Longer Active Piotr Daley DO Active LISINOPRIL-HYDROCHLOROTHIAZIDE 10-12.5 MG TABS 1 tab by mouth daily LISINOPRIL-HYDROCHLOROTHIAZIDE 92471413970 Active Hilary Ma MA Active LISINOPRIL 10 MG TABS 1/2-1 tab po every other day LISINOPRIL 61995597723 No Longer Active Piotr Daley DO Active VENTOLIN HFA 108 (90 BASE) MCG/ACT AERS 2 puffs four times a day PRN cough ALBUTEROL SULFATE 31989366007 No Longer Active Piotr Daley DO Active NYSTATIN-TRIAMCINOLONE 451613-5.1 UNIT/GM-% CREA Apply to area BID NYSTATIN-TRIAMCINOLONE 45443501682 No Longer Active Alena Oswaldum CAPPING MACHINE OPERATOR Active PHISOHEX 3 % LIQD Use Directed HEXACHLOROPHENE 39551195596 No Longer Active Sandra [place] Active AZITHROMYCIN 250 MG TABS 2 po qd x 1 day, then 1 po qd x 4 days AZITHROMYCIN 12958215354 No Longer Active Katrina Rinaldi MD PhD Active AZITHROMYCIN 250 MG TABS 2 po qd x 1 day, then 1 po qd x 4 days AZITHROMYCIN 37008251163 No Longer Active Piotr Daley DO Active AZITHROMYCIN 500 MG SOLR 1 po q day AZITHROMYCIN 99164568934 No Longer Active Piotr Daley DO Active NYSTATIN-TRIAMCINOLONE 115437-4.1 UNIT/GM-% CREA apply bid 08/19 NYSTATIN-TRIAMCINOLONE 75722712321 No Longer Active Piotr Daley DO Active IBUPROFEN 800 MG TABS 1 po q 8 hours prn pain sparinly IBUPROFEN 08114309280 No Longer Active Piotr Daley DO Active VITAMIN D3 5000 UNIT CAPS 1 po daily CHOLECALCIFEROL 20556918205 Active Piotr Daley DO Active IBUPROFEN 800 MG TABS 1 po q 8 hours prn pain sparinly IBUPROFEN 800 MG TABS 149643 IBUPROFEN Inactive NYSTATIN-TRIAMCINOLONE 155446-6.1 UNIT/GM-% CREA apply bid 08/19 NYSTATIN-TRIAMCINOLONE 060740-9.1 UNIT/GM-% CREA 5682692 NYSTATIN- TRIAMCINOLONE Inactive AZITHROMYCIN 500 MG SOLR 1 po q day AZITHROMYCIN 500 MG SOLR 61091943250 AZITHROMYCIN Inactive VENTOLIN HFA 108 (90 BASE) MCG/ACT AERS 2 puffs four times a day PRN cough VENTOLIN HFA 108 (90 BASE) MCG/ACT AERS ALBUTEROL SULFATE Inactive LISINOPRIL 10 MG TABS 1/2-1 tab po every other day LISINOPRIL 10 MG TABS 239207 LISINOPRIL Inactive TUSSIONEX PENNKINETIC ER 10-8 MG/5ML LQCR 5ml po q12hr PRN Cough TUSSIONEX PENNKINETIC ER 10-8 MG/5ML LQCR HYDROCOD POLST- CHLORPHEN POLST Inactive PROMETHAZINE HCL 25 MG TABS 1 four times a day as needed for nausea/vomiting PROMETHAZINE HCL 25 MG TABS 020705 PROMETHAZINE HCL Inactive PREDNISONE 20 MG TAB 1 tablet twice daily for 2 days, then 1 tablet once daily for 2 days PREDNISONE 20 MG TAB 908158 PREDNISONE Inactive WARFARIN SODIUM 4 MG TABS 1 tab every evening WARFARIN SODIUM 4 MG TABS 028782 WARFARIN SODIUM Inactive LOMOTIL 2.5-0.025 MG TAB 1 to 2 four times a day as needed for diarrhea 10/13 LOMOTIL 2.5-0.025 MG TAB 4033000 DIPHENOXYLATE-ATROPINE Inactive IBUPROFEN 800 MG TABS 1 tab every 8 hours as needed IBUPROFEN 800 MG TABS 944004 IBUPROFEN Inactive PREDNISONE 20 MG TAB 2 tablets today, then 1 tablet days 2 through 4 PREDNISONE 20 MG TAB 990971 PREDNISONE Inactive AZITHROMYCIN 250 MG TABS 2 po qd x 1 day, then 1 po qd x 4 days AZITHROMYCIN 250 MG TABS 0377517 AZITHROMYCIN Inactive AZITHROMYCIN 250 MG TABS 2 po qd x 1 day, then 1 po qd x 4 days AZITHROMYCIN 250 MG TABS 0629644 AZITHROMYCIN Inactive NYSTATIN-TRIAMCINOLONE 366310-5.1 UNIT/GM-% CREA Apply to area BID NYSTATIN-TRIAMCINOLONE 838736-3.1 UNIT/GM-% CREA 8024711 NYSTATIN-TRIAMCINOLONE Inactive AZITHROMYCIN 250 MG TABS 2 po qd x 1 day, then 1 po qd x 4 days AZITHROMYCIN 250 MG TABS 3068036 AZITHROMYCIN Inactive AZITHROMYCIN 250 MG TABS 2 po qd x 1 day, then 1 po qd x 4 days AZITHROMYCIN 250 MG TABS 6044974 AZITHROMYCIN Inactive AZITHROMYCIN 250 MG TABS 2 po qd x 1 day, then 1 po qd x 4 days AZITHROMYCIN 250 MG TABS 9223564 AZITHROMYCIN Inactive Advance Directives Directive Description Start [...] volume, RBC 84 fL 80-97 mean corpuscular hemoglobin concentration, RBC 33.9 G/DL % 31.8- 35.4 red blood cell distribution width 15.0 % 11.6-14.8 platelet count 210 10^3/MM^3 10*3/mm3 780-743 8963/02/09 mean corpuscular hemoglobin, RBC 28.4 pg 27.0-31.2 leukocyte count, blood 5.2 10^3/MM^3 10*3/mm3 4.6-10.2 erythrocyte (RBC) count 5.20 10^6/MM^3 10*6/mm3 4.69-6.13 hemoglobin, blood 14.8 g/dL 13.5-17.5 hematocrit, blood 43.6 % 41.0-53.0 Lab Report: Comp. Metabolic Panel - Chemistry sodium, serum 141 mmol/L 463-947 0255/06/28 carbon dioxide, venous blood 31.0 mmol/L 21.0-32.0 [...] 11.1-13.4 international normalized ratio (INR) 2.4 1.0-3.5 international normalized ratio (INR) 1.7 1.0-3.5 prothrombin time (patient) 18.3 SECS s 11.1-13.4 international normalized ratio (INR) 2.3 1.0-3.5 prothrombin time (patient) 22.8 SECS s 11.1-13.4 prothrombin time (patient) 19.8 SECS s 11.1-13.4 international normalized ratio (INR) 2.3 1.0-3.5 international normalized ratio (INR) 3.0 1.0-3.5 prothrombin time (patient) 20.8 SECS s 11.1-13.4 international normalized ratio (INR) 2.5 1.0-3.5 prothrombin time (patient) 18.1 SECS s 11.1-13.4 international normalized ratio (INR) 2.2 1.0-3.5 prothrombin time (patient) 16.6 SECS s 11.1-13.4 international normalized ratio (INR) 1.9 1.0-3.5 prothrombin time (patient) 15.4 SECS s 11.1-13.4 Lab Report: Prothrombin Time, Prostatic Specific Ag - Chemistry prostate specific antigen 0.04 ng/mL 0.00-4.00 Lab Report: Prothrombin Time, Prostatic Specific Ag - Coagulation international normalized ratio (INR) 1.9 1.0-3.5 prothrombin time (patient) 16.6 SECS s 11.1-13.4 Lab Report: UADIP W/MICRO, AUTO - Chemistry RBC, urine, dipstick Negative Negative protein, total urine random Negative mg/dL Negative Lab Report: UADIP W/MICRO, AUTO - Urinalysis glucose, urine, semiquantitative Negative Negative urobilinogen, urine, semiquantitative (dipstick) 0.2 Normal leukocyte esterase, urine, by dipstick Negative Negative nitrite, urine, semiquantitative Negative Negative appearance, urine Clear Clear urine color Yellow Colorless;Lightyellow;Straw;Yellow pH, urine, semiquantitative 6.0 5.0-8.5 specific gravity, urine 1.025 1.000-1.030 ketones, urine, by test strip Negative Negative bilirubin, urine Negative Negative Encounters Code Encounter Date Provider Facility CPT-63251 Level 3 Est. Patient 15:14:31 DIRECTOR OF PHARMACY Piotr Daley DO [facility] CPT-07177 Level 3 Est. Patient 09:20:13 DIRECTOR OF PHARMACY Piotr Daley [facility] CPT-16268 Level 3 Est. Patient 09:49:40 CDT Piotr Daley [facility] CPT-26547 Level 3 Est. Patient 16:28:11 CDT Piotr Daley [facility] CPT-06760 Level 3 Est. Patient 12:41:58 DIRECTOR OF PHARMACY Piotr Daley [facility] CPT-94359 Level 3 Est. Patient 09:21:24 CDT Piotr Daley [facility] CPT-64467 Level 3 Est. Patient 09:21:11 CDT Piotr Daley [facility] CPT-44021 Level 3 Est. Patient 11:16:29 DIRECTOR OF PHARMACY Piotr Daley [facility] CPT-39816 Level 3 Est. Patient 18:40:19 DIRECTOR OF PHARMACY Piotr Daley [facility] CPT-37387 Level 3 Est. Patient 19:30:50 CDT Piotr Daley [facility] CPT-24242 Level 3 Est. Patient 22:06:44 CDT Katrina Rinaldi MD [facility] CPT-40992 Level 3 Est. Patient 14:20:00 CDT Piotr Daley [facility] CPT-69984 Level 3 Est. Patient 14:15:22 DIRECTOR OF PHARMACY Piotr Daley [facility] CPT-53723 Level 3 Est. Patient 20:19:57 DIRECTOR OF PHARMACY Piotr Daley [facility] CPT-47186 Level 3 Est. Patient 16:44:32 CDT Piotr Daley [facility] CPT-74622 Level 3 Est. Patient 08:48:46 DIRECTOR OF PHARMACY Piotr Daley [facility] CPT-63968 Level 3 Est. Patient 21:01:21 CDT Piotr Daley [facility] Procedures Code Procedure Name Date Entry Date Standard Description CPT-92896 PT/INR - LAB USE ONLY 15:48:49 CDT CPT-08008 Venipuncture Draw Fee 15:48:49 CDT CPT-90927 Venipuncture Draw Fee 11:31:59 CDT CPT-09946 PT/INR - LAB USE ONLY 11:31:59 CDT CPT-76226 Venipuncture Draw Fee 13:29:15 CDT CPT-05284 Thoracolumbar AP/Lat 15:19:19 DIRECTOR OF PHARMACY CPT-G0438 Initial Annual Wellness Exam 12:18:54 DIRECTOR OF PHARMACY CPT-15985 Knee 3V 09:57:38 CDT CPT-OV Office Visit 15:45:01 DIRECTOR OF PHARMACY CPT-14348 Abd compl w upright 17:10:25 CDT
--- OUTSIDE RECORDS SUMMARY | 2018-07-18 09:31 | XMS REPORT | Clinical Summary ---
Author Author Admin, [facility] Organization [facility] Address Unknown Phone Unavailable Allergies, Adverse Reactions, [...] Coronary atherosclerosis of unspecified type of vessel, [place] or graft Back pain, thoracic region, left [...] Emelyn Goode Rachealbita Sacroiliitis, not elsewhere classified HEALTH MAINTENANCE EXAM ICD-V70.0 Inactive Katrina Rinaldi MD PhD BRONCHITIS-ACUTE ICD-466.0 Inactive Piotr Daley DO SCREENING, COLON CANCER ICD-V76.51 Inactive Katrina Rinaldi MD PhD BRONCHITIS-ACUTE ICD-466.0 Inactive Piotr Daley DO FLANK PAIN, RIGHT ICD-789.09 Inactive Katrina Rinaldi MD PhD Seborrheic keratosis ICD-702.19 Inactive Sirisha Chen SOLUTIONS MARKET CONSULTANT Bronchitis-Acute ICD-466.0 Inactive Piotr Daley DO Leg pain, right ICD-729.5 Inactive Sirisha Chen SOLUTIONS MARKET CONSULTANT Right leg pain ICD-729.5 Inactive Sirisha Chen SOLUTIONS MARKET CONSULTANT Bronchitis-Acute ICD-466.0 Inactive Sirisha Chen SOLUTIONS MARKET CONSULTANT Knee pain, left ICD-719.46 Inactive Sirisha Chen SOLUTIONS MARKET CONSULTANT Actinic keratoses ICD-702.0 Inactive Sirisha Chen SOLUTIONS MARKET CONSULTANT Back pain, thoracic region, left ICD-724.1 Inactive Piotr Daley DO Thoracic back pain ICD-724.5 Inactive Sirisha Chen SOLUTIONS MARKET CONSULTANT Back pain lumbar ICD-724.2 Inactive Sirisha Chen SOLUTIONS MARKET CONSULTANT Insect bite ICD-919.4 Inactive Sirisha Chen SOLUTIONS MARKET CONSULTANT Pruritus ICD-698.9 Inactive Sirisha Chen SOLUTIONS MARKET CONSULTANT 04/09 DEEP VENOUS THROMBOPHLEBITIS, LEG, 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 Inactive Sirisha Chen SOLUTIONS MARKET CONSULTANT DEEP VENOUS THROMBOPHLEBITIS, LEG, 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 Inactive Sirisha Chen SOLUTIONS MARKET CONSULTANT Bronchitis-Acute ICD-466.0 Inactive Sirisha Chen SOLUTIONS MARKET CONSULTANT Dyspnea ICD-786.09 Inactive Sirisha Chen SOLUTIONS MARKET CONSULTANT 05/09 Medication List Medication Instructions Start Date Stop Date Generic Name NDC Status Provider Patient Instruction WARFARIN SODIUM 4 MG ORAL TABLET 1 tablet by mouth daily WARFARIN SODIUM 11265960748 Active Anahy Hall Active MELOXICAM 15 MG ORAL TABLET 1 po q day for pain with food MELOXICAM 98117467670 Active Piotr Daley DO Active PREDNISONE 10 MG ORAL TABLET 1 tablet by mouth daily PREDNISONE 12545015775 No Longer Active Emelyn Norris Active TESSALON PERLES 100 MG ORAL CAPSULE 1-2 tablet by mouth 3 times daily 04/16 BENZONATATE 78549851004 No Longer Active Emelyn Norris Active PREDNISONE 20 MG ORAL TABLET two tabs by mouth today, then one tab by mouth days two and three PREDNISONE 72455114075 No Longer Active Piotr Daley DO Active CYCLOBENZAPRINE HCL 10 MG ORAL TABLET 1 tablet by mouth three times daily as needed for muscle spasm/pain CYCLOBENZAPRINE HCL 89811060261 Active Sirisha Chen SOLUTIONS MARKET CONSULTANT Active ZITHROMAX 250 MG ORAL TABLET Take two (2 ) tablets day one, then one (1) tablet a day for four (4) more days AZITHROMYCIN 59648917542 No Longer Active Piotr Daley DO Active PROAIR HFA 108 (90 BASE) MCG/ACT INHALATION AEROSOL SOLUTION 1-2 puffs four times a day as needed ALBUTEROL SULFATE 39037824978 No Longer Active Emelyn Norris Active DOXYCYCLINE HYCLATE 100 MG ORAL CAPSULE 1 cap by mouth BID x10 days DOXYCYCLINE HYCLATE 08164608809 No Longer Active Nella Harris OCCUPATIONAL SAFETY AND HEALTH MANAGER Active PREDNISONE 20 MG ORAL TABLET 2 tabs daily for 3 days, 1 tab daily for 3 days, 1/2 tab daily for 2 days PREDNISONE 40479443144 No Longer Active Matthew Rangel MD Active TRAMADOL HCL 50 MG ORAL TABLET 1 po tid with ES Tylenol TRAMADOL HCL 96601145372 No Longer Active Matthew Rangel MD Active GABAPENTIN 300 MG ORAL CAPSULE 1 po q hs for nerve pain GABAPENTIN 53609935652 No Longer Active Matthew Rangel MD Active PREDNISONE 20 MG ORAL TABLET 2 tablets today, then 1 tablet days 2 through 4 PREDNISONE 32976180184 No Longer Active Piotr Daley DO Active AZITHROMYCIN 250 MG ORAL TABLET 2 po qd x 1 day, then 1 po qd x 4 days 07/12 AZITHROMYCIN 69414563412 No Longer Active Piotr Daley DO Active IBUPROFEN 800 MG ORAL TABLET 1 tab every 8 hours as needed 07/12 IBUPROFEN 42832237950 No Longer Active Piotr Daley DO Active LOMOTIL 2.5-0.025 MG ORAL TABLET 1 to 2 four times a day as needed for diarrhea DIPHENOXYLATE-ATROPINE 79266690017 No Longer Active Piotr W Edi DO Active WARFARIN SODIUM 4 MG ORAL TABLET 1 tab every evening WARFARIN SODIUM 70225225532 No Longer Active Piotr Daley DO Active PREDNISONE 20 MG ORAL TABLET 1 tablet twice daily for 2 days, then 1 tablet once daily for 2 days PREDNISONE 37019420233 No Longer Active Piotr Daley DO Active PROMETHAZINE HCL 25 MG ORAL TABLET 1 four times a day as needed for nausea/ vomiting PROMETHAZINE HCL 87017154795 No Longer Active Piotr Daley DO Active TUSSIONEX PENNKINETIC ER 10-8 MG/5ML ORAL SUSPENSION EXTENDED RELEASE 5ml po q12hr PRN Cough HYDROCOD POLST-CHLORPHEN POLST 54195783248 No Longer Active Piotr Daley DO Active AZITHROMYCIN 250 MG ORAL TABLET 2 po qd x 1 day, then 1 po qd x 4 days 10/13 AZITHROMYCIN 70189533699 No Longer Active Piotr Daley DO Active AZITHROMYCIN 250 MG ORAL TABLET 2 po qd x 1 day, then 1 po qd x 4 days 05/07 AZITHROMYCIN 66414315417 No Longer Active Piotr Daley DO Active LISINOPRIL-HYDROCHLOROTHIAZIDE 10-12.5 MG ORAL TABLET 1 tab by mouth daily LISINOPRIL-HYDROCHLOROTHIAZIDE 59532747111 Active Piotr Daley DO Active LISINOPRIL 10 MG ORAL TABLET 1/2-1 tab po every other day LISINOPRIL 97031633003 No Longer Active Piotr Daley DO Active VENTOLIN HFA 108 (90 Base) MCG/ACT INHALATION AEROSOL SOLUTION 2 puffs four times a day PRN cough ALBUTEROL SULFATE 85497085550 No Longer Active Piotr Daley DO Active NYSTATIN-TRIAMCINOLONE 950978-3.1 UNIT/GM-% EXTERNAL CREAM Apply to area BID NYSTATIN-TRIAMCINOLONE 96671516292 No Longer Active Alena Chavira SOLUTIONS MARKET CONSULTANT Active PHISOHEX 3 % LIQD Use Directed HEXACHLOROPHENE 88109612729 No Longer Active Sandra [place] Active AZITHROMYCIN 250 MG ORAL TABLET 2 po qd x 1 day, then 1 po qd x 4 days 10/21 AZITHROMYCIN 31275702033 No Longer Active Katrina Rinaldi MD PhD Active AZITHROMYCIN 250 MG ORAL TABLET 2 po qd x 1 day, then 1 po qd x 4 days 10/16 AZITHROMYCIN 85365709144 No Longer Active Piotr Daley DO Active AZITHROMYCIN 500 MG INTRAVENOUS SOLUTION RECONSTITUTED 1 po q day AZITHROMYCIN 43898553314 No Longer Active Piotr Daley DO Active NYSTATIN-TRIAMCINOLONE 950382-1.1 UNIT/GM-% EXTERNAL CREAM apply bid NYSTATIN-TRIAMCINOLONE 89751716638 No Longer Active Piotr Daley DO Active IBUPROFEN 800 MG ORAL TABLET 1 po q 8 hours prn pain sparinly IBUPROFEN 20455243508 No Longer Active Piotr Daley DO Active VITAMIN D3 5000 UNIT ORAL CAPSULE 1 po daily CHOLECALCIFEROL 22652530885 Active Piotr Daley DO Active IBUPROFEN 800 MG ORAL TABLET 1 po q 8 hours prn pain sparinly IBUPROFEN 800 MG ORAL TABLET 150772 IBUPROFEN Inactive NYSTATIN-TRIAMCINOLONE 503591-0.1 UNIT/GM-% EXTERNAL CREAM apply bid NYSTATIN-TRIAMCINOLONE 862907-0.1 UNIT/GM-% EXTERNAL CREAM 1539517 NYSTATIN-TRIAMCINOLONE Inactive AZITHROMYCIN 500 MG INTRAVENOUS SOLUTION RECONSTITUTED 1 po q day AZITHROMYCIN 500 MG INTRAVENOUS SOLUTION RECONSTITUTED 12732964294 AZITHROMYCIN Inactive VENTOLIN HFA 108 (90 Base) MCG/ACT INHALATION AEROSOL SOLUTION 2 puffs four times a day PRN cough VENTOLIN HFA 108 (90 Base) MCG/ ACT INHALATION AEROSOL SOLUTION ALBUTEROL SULFATE Inactive LISINOPRIL 10 MG ORAL TABLET 1/2-1 tab po every other day LISINOPRIL 10 MG ORAL TABLET 823677 LISINOPRIL Inactive TUSSIONEX PENNKINETIC ER 10-8 MG/5ML ORAL SUSPENSION EXTENDED RELEASE 5ml po q12hr PRN Cough TUSSIONEX PENNKINETIC ER 10-8 MG/5ML ORAL SUSPENSION EXTENDED RELEASE HYDROCOD POLST-CHLORPHEN POLST Inactive PROMETHAZINE HCL 25 MG ORAL TABLET 1 four times a day as needed for nausea/ vomiting PROMETHAZINE HCL 25 MG ORAL TABLET 408818 PROMETHAZINE HCL Inactive PREDNISONE 20 MG ORAL TABLET 1 tablet twice daily for 2 days, then 1 tablet once daily for 2 days PREDNISONE 20 MG ORAL TABLET 921990 PREDNISONE Inactive WARFARIN SODIUM 4 MG ORAL TABLET 1 tab every evening WARFARIN SODIUM 4 MG ORAL TABLET 220695 WARFARIN SODIUM Inactive LOMOTIL 2.5-0.025 MG ORAL TABLET 1 to 2 four times a day as needed for diarrhea LOMOTIL 2.5-0.025 MG ORAL TABLET 8880188 DIPHENOXYLATE-ATROPINE Inactive IBUPROFEN 800 MG ORAL TABLET 1 tab every 8 hours as needed 07/12 IBUPROFEN 800 MG ORAL TABLET 141338 IBUPROFEN Inactive PREDNISONE 20 MG ORAL TABLET 2 tablets today, then 1 tablet days 2 through 4 PREDNISONE 20 MG ORAL TABLET 605246 PREDNISONE Inactive GABAPENTIN 300 MG ORAL CAPSULE 1 po q hs for nerve pain GABAPENTIN 300 MG ORAL CAPSULE 331644 GABAPENTIN Inactive TRAMADOL HCL 50 MG ORAL TABLET 1 po tid with ES Tylenol TRAMADOL HCL 50 MG ORAL TABLET 162403 TRAMADOL HCL Inactive PROAIR HFA 108 (90 BASE) MCG/ACT INHALATION AEROSOL SOLUTION 1-2 puffs four times a day as needed PROAIR HFA 108 (90 BASE) MCG/ACT INHALATION AEROSOL SOLUTION ALBUTEROL SULFATE Inactive PREDNISONE 20 MG ORAL TABLET two tabs by mouth today, then one tab by mouth days two and three PREDNISONE 20 MG ORAL TABLET 490559 PREDNISONE Inactive TESSALON PERLES 100 MG ORAL CAPSULE 1-2 tablet by mouth 3 times daily 04/16 TESSALON PERLES 100 MG ORAL CAPSULE 630631 BENZONATATE Inactive PREDNISONE 10 MG ORAL TABLET 1 tablet by mouth daily PREDNISONE 10 MG ORAL TABLET 710991 PREDNISONE Inactive AZITHROMYCIN 250 MG ORAL TABLET 2 po qd x 1 day, then 1 po qd x 4 days 10/16 AZITHROMYCIN 250 MG ORAL TABLET 846534 AZITHROMYCIN Inactive AZITHROMYCIN 250 MG ORAL TABLET 2 po qd x 1 day, then 1 po qd x 4 days 10/21 AZITHROMYCIN 250 MG ORAL TABLET 529750 AZITHROMYCIN Inactive NYSTATIN-TRIAMCINOLONE 511931-3.1 UNIT/GM-% EXTERNAL CREAM Apply to area BID NYSTATIN-TRIAMCINOLONE 710813-1.1 UNIT/GM-% EXTERNAL CREAM 0975156 NYSTATIN-TRIAMCINOLONE Inactive AZITHROMYCIN 250 MG ORAL TABLET 2 po qd x 1 day, then 1 po qd x 4 days 05/07 AZITHROMYCIN 250 MG ORAL TABLET 050920 AZITHROMYCIN Inactive AZITHROMYCIN 250 MG ORAL TABLET 2 po qd x 1 day, then 1 po qd x 4 days 10/13 AZITHROMYCIN 250 MG ORAL TABLET 445787 AZITHROMYCIN Inactive AZITHROMYCIN 250 MG ORAL TABLET 2 po qd x 1 day, then 1 po qd x 4 days 07/12 AZITHROMYCIN 250 MG ORAL TABLET 934441 AZITHROMYCIN Inactive PREDNISONE 20 MG ORAL TABLET 2 tabs daily for 3 days, 1 tab daily for 3 days, 1/2 tab daily for 2 days PREDNISONE 20 MG ORAL TABLET 428283 PREDNISONE Inactive DOXYCYCLINE HYCLATE 100 MG ORAL CAPSULE 1 cap by mouth BID x10 days DOXYCYCLINE HYCLATE 100 MG ORAL CAPSULE 9342185 DOXYCYCLINE HYCLATE Inactive ZITHROMAX 250 MG ORAL TABLET Take two (2 ) tablets day one, then one (1) tablet a day for four (4) more days ZITHROMAX 250 MG ORAL TABLET 455707 AZITHROMYCIN Inactive Advance Directives Directive Description Start [...] Measured Encounters Code Encounter Date Provider Facility CPT-85704 Level 3 Est. Patient 15:59:25 ACCOUNT DEVELOPMENT MANAGER Piotr Daley DO [facility] CPT-65888 Level 3 Est. Patient 12:33:59 ACCOUNT DEVELOPMENT MANAGER Piotr Daley DO [facility] CPT-75109 Level 3 Est. Patient 15:56:17 ACCOUNT DEVELOPMENT MANAGER Piotr Daley DO [facility] CPT-92271 Level 3 Est. Patient 10:34:54 ACCOUNT DEVELOPMENT MANAGER Piotr Daley [facility] CPT-86799 Level 3 Est. Patient 17:10:19 MALACHI Harris APRN [facility] CPT-45844 Level 3 Est. Patient 10:48:17 ACCOUNT DEVELOPMENT MANAGER Matthew Rangel MD [facility] CPT-23655 Level 4 Est. Patient 17:15:07 ACCOUNT DEVELOPMENT MANAGER Piotr Daley [facility] CPT-78501 Level 3 Est. Patient 12:46:13 ACCOUNT DEVELOPMENT MANAGER Piotr Daley [facility] CPT-80653 Level 3 Est. Patient 15:14:31 ACCOUNT DEVELOPMENT MANAGER Piotr Daley [facility] CPT-10714 Level 3 Est. Patient 09:20:13 ACCOUNT DEVELOPMENT MANAGER Piotr Daley [facility] CPT-01133 Level 3 Est. Patient 09:49:40 CDT Piotr Daley [facility] CPT-43446 Level 3 Est. Patient 16:28:11 CDT Piotr Daley [facility] CPT-78837 Level 3 Est. Patient 12:41:58 ACCOUNT DEVELOPMENT MANAGER Piotr Daley [facility] CPT-38920 Level 3 Est. Patient 09:21:24 CDT Piotr Daley [facility] CPT-78811 Level 3 Est. Patient 09:21:11 CDT Piotr aDley [facility] CPT-11917 Level 3 Est. Patient 11:16:29 ACCOUNT DEVELOPMENT MANAGER Piotr Daley [facility] CPT-83177 Level 3 Est. Patient 18:40:19 ACCOUNT DEVELOPMENT MANAGER Piotr Daley [facility] CPT-38841 Level 3 Est. Patient 19:30:50 CDT Piotr Daley [facility] CPT-08892 Level 3 Est. Patient 22:06:44 CDT Katrina Rinaldi MD PhD [facility] CPT-32304 Level 3 Est. Patient 14:20:00 CDT Piotr Daley [facility] CPT-75655 Level 3 Est. Patient 14:15:22 ACCOUNT DEVELOPMENT MANAGER Piotr Daley [facility] CPT-49486 Level 3 Est. Patient 20:19:57 ACCOUNT DEVELOPMENT MANAGER Piotr Daley [facility] CPT-29940 Level 3 Est. Patient 16:44:32 CDT Piotr Daley [facility] CPT-25796 Level 3 Est. Patient 08:48:46 ACCOUNT DEVELOPMENT MANAGER Piotr Daley [facility] CPT-63906 Level 3 Est. Patient 21:01:21 CDT Piotr Daley [facility] Procedures Code Procedure Name Date Entry Date Standard Description CPT-79548 Sacroiliac jt < 3V - XRAY USE ONLY 16:45:19 ACCOUNT DEVELOPMENT MANAGER 05/09 CPT-87874 LS spine comp w obliques - XRAY USE ONLY 14:52:26 [facility] [place] CPT-02308 Chest, 2 views 12:55:58 [facility] [place] CPT-G0439 Subsequent Annual Wellness Exam 10:34:52 ACCOUNT DEVELOPMENT MANAGER CPT-08959 BMP - LAB USE ONLY 17:19:11 [facility] [place] CPT-09012 PT/INR - LAB USE ONLY 17:19:10 [facility] [place] CPT-12653 Venipuncture Draw Fee 17:19:10 [facility] [place] CPT-30325 PT/INR - LAB USE ONLY 08:12:25 ACCOUNT DEVELOPMENT MANAGER CPT-74959 Venipuncture Draw Fee 08:12:24 ACCOUNT DEVELOPMENT MANAGER CPT-99276 Venipuncture Draw Fee 11:31:07 ACCOUNT DEVELOPMENT MANAGER CPT-16711 TPSA - LAB USE ONLY 11:31:07 ACCOUNT DEVELOPMENT MANAGER CPT-60183 PT/INR - LAB USE ONLY 11:31:07 ACCOUNT DEVELOPMENT MANAGER CPT-G0439 Subsequent Annual Wellness Exam 09:59:29 ACCOUNT DEVELOPMENT MANAGER CPT-91956 Creatinine - LAB USE ONLY 14:37:55 ACCOUNT DEVELOPMENT MANAGER CPT-20033 PT/INR - LAB USE ONLY 14:37:55 ACCOUNT DEVELOPMENT MANAGER CPT-73669 Venipuncture Draw Fee 14:37:55 ACCOUNT DEVELOPMENT MANAGER CPT-71841 LS spine comp w obliques - XRAY USE ONLY 12:59:25 ACCOUNT DEVELOPMENT MANAGER CPT-64958 PT/INR - LAB USE ONLY 13:49:20 CDT CPT-53046 Venipuncture Draw Fee 13:49:19 CDT CPT-12820 PT/INR - LAB USE ONLY 15:48:49 CDT CPT-92201 Venipuncture Draw Fee 15:48:49 CDT CPT-93500 Venipuncture Draw Fee 11:31:59 CDT CPT-06472 PT/INR - LAB USE ONLY 11:31:59 CDT CPT-42358 Venipuncture Draw Fee 13:29:15 CDT CPT-65958 Thoracolumbar AP/Lat 15:19:19 ACCOUNT DEVELOPMENT MANAGER CPT-G0438 Initial Annual Wellness Exam 12:18:54 ACCOUNT DEVELOPMENT MANAGER CPT-81818 Knee 3V 09:57:38 CDT CPT-OV Office Visit 15:45:01 ACCOUNT DEVELOPMENT MANAGER CPT-81163 Abd compl w upright 17:10:25 CDT
--- OUTSIDE RECORDS SUMMARY | 2018-07-18 09:32 | XMS REPORT | Clinical Summary ---
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 Personal history of malignant neoplasm of prostate Coronary artery disease 414.00 Active Alina Luigi AUTO BODY REPAIRMAN Coronary atherosclerosis of unspecified type of vessel, [...] neuropathy Insect bite 919.4 Active Nella Harris AUTO BODY REPAIRMAN Insect bite, nonvenomous, of other, multiple, and unspecified sites, without mention of infection Pruritus 698.9 Active Nella Harris AUTO BODY REPAIRMAN Unspecified pruritic disorder Wellness exam V70.0 Active Emelyn Norris Routine general medical examination at a health care facility FLANK PAIN, RIGHT ICD-789.09 Inactive Ktarina Rinaldi MD PhD HEALTH MAINTENANCE EXAM ICD-V70.0 [...] times a day as needed ALBUTEROL SULFATE 93821426562 No Longer Active Emelyn Norris Active DOXYCYCLINE HYCLATE 100 MG ORAL CAPSULE 1 cap by mouth BID x10 days DOXYCYCLINE HYCLATE 27391210791 No Longer Active Nella Harris APRN Active WARFARIN SODIUM 5 MG ORAL TABLET 1 tablet daily M-S, 1/2 tab on Heart WARFARIN SODIUM 15632380284 Active Piotr Daley DO Active PREDNISONE 20 MG ORAL TABLET 2 tabs daily for 3 days, 1 tab daily for 3 days, 1/2 tab daily for 2 days PREDNISONE 79815954586 No Longer Active Matthew Rangel MD Active TRAMADOL HCL 50 MG ORAL TABLET 1 po tid with ES Tylenol TRAMADOL HCL 17854676311 No Longer Active Matthew Rangel MD Active GABAPENTIN 300 MG ORAL CAPSULE 1 po q hs for nerve pain GABAPENTIN 70934561826 No Longer Active Matthew Rangel MD Active PREDNISONE 20 MG ORAL TABLET 2 tablets today, then 1 tablet days 2 through 4 PREDNISONE 79524844777 No Longer Active Piotr Daley DO Active AZITHROMYCIN 250 MG ORAL TABLET 2 po qd x 1 day, then 1 po qd x 4 days 07/12 AZITHROMYCIN 45767874396 No Longer Active Piotr Daley DO Active IBUPROFEN 800 MG ORAL TABLET 1 tab every 8 hours as needed 07/12 IBUPROFEN 01086324473 No Longer Active Piotr Daley DO Active LOMOTIL 2.5-0.025 MG ORAL TABLET 1 to 2 four times a day as needed for diarrhea DIPHENOXYLATE-ATROPINE 29521651760 No Longer Active Piotr Daley DO Active WARFARIN SODIUM 4 MG ORAL TABLET 1 tab every evening WARFARIN SODIUM 02624036884 No Longer Active Piotr Daley DO Active PREDNISONE 20 MG ORAL TABLET 1 tablet twice daily for 2 days, then 1 tablet once daily for 2 days PREDNISONE 04000974804 No Longer Active Piotr Daley DO Active PROMETHAZINE HCL 25 MG ORAL TABLET 1 four times a day as needed for nausea/ vomiting PROMETHAZINE HCL 12723947341 No Longer Active Piotr Daley DO Active TUSSIONEX PENNKINETIC ER 10-8 MG/5ML ORAL SUSPENSION EXTENDED RELEASE 5ml po q12hr PRN Cough HYDROCOD POLST-CHLORPHEN POLST 68162012425 No Longer Active Piotr Daley DO Active AZITHROMYCIN 250 MG ORAL TABLET 2 po qd x 1 day, then 1 po qd x 4 days 10/13 AZITHROMYCIN 83324414144 No Longer Active Piotr Daley DO Active AZITHROMYCIN 250 MG ORAL TABLET 2 po qd x 1 day, then 1 po qd x 4 days 05/07 AZITHROMYCIN 44465465958 No Longer Active Piotr Daley DO Active LISINOPRIL-HYDROCHLOROTHIAZIDE 10-12.5 MG ORAL TABLET 1 tab by mouth daily LISINOPRIL-HYDROCHLOROTHIAZIDE 61959833340 Active Piotr Daley DO Active LISINOPRIL 10 MG ORAL TABLET 1/2-1 tab po every other day LISINOPRIL 22942875624 No Longer Active Piotr Daley DO Active VENTOLIN HFA 108 (90 Base) MCG/ACT INHALATION AEROSOL SOLUTION 2 puffs four times a day PRN cough ALBUTEROL SULFATE 64660755591 No Longer Active Piotr Daley DO Active NYSTATIN-TRIAMCINOLONE 501324-9.1 UNIT/GM-% EXTERNAL CREAM Apply to area BID NYSTATIN-TRIAMCINOLONE 98732868133 No Longer Active Alena Chavira HIGH DENSITY 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 COATER OPERATOR Active PHISOHEX 3 % LIQD Use Directed HEXACHLOROPHENE 66040178483 No Longer Active Sandra Nels[place] Active AZITHROMYCIN 250 MG ORAL TABLET 2 po qd x 1 day, then 1 po qd x 4 days 10/21 AZITHROMYCIN 19989416138 No Longer Active Katrina Rinaldi MD PhD Active AZITHROMYCIN 250 MG ORAL TABLET 2 po qd x 1 day, then 1 po qd x 4 days 10/16 AZITHROMYCIN 27703046902 No Longer Active Piotr Daley DO Active AZITHROMYCIN 500 MG INTRAVENOUS SOLUTION RECONSTITUTED 1 po q day AZITHROMYCIN 16236193730 No Longer Active Piotr Daley DO Active NYSTATIN-TRIAMCINOLONE 785036-1.1 UNIT/GM-% EXTERNAL CREAM apply bid NYSTATIN-TRIAMCINOLONE 13270008388 No Longer Active Piotr Daley DO Active IBUPROFEN 800 MG ORAL TABLET 1 po q 8 hours prn pain sparinly IBUPROFEN 09829939248 No Longer Active Piotr Daley DO Active VITAMIN D3 5000 UNIT ORAL CAPSULE 1 po daily CHOLECALCIFEROL 46520823317 Active Piotr Daley DO Active DOXYCYCLINE HYCLATE 100 MG ORAL CAPSULE 1 cap by mouth BID x10 days DOXYCYCLINE HYCLATE 100 MG ORAL CAPSULE 6783454 DOXYCYCLINE HYCLATE Inactive IBUPROFEN 800 MG ORAL TABLET 1 po q 8 hours prn pain sparinly IBUPROFEN 800 MG ORAL TABLET 045787 IBUPROFEN Inactive IBUPROFEN 800 MG ORAL TABLET 1 tab every 8 hours as needed 07/12 IBUPROFEN 800 MG ORAL TABLET 048188 IBUPROFEN Inactive LOMOTIL 2.5-0.025 MG ORAL TABLET 1 to 2 four times a day as needed for diarrhea LOMOTIL 2.5-0.025 MG ORAL TABLET 9742438 DIPHENOXYLATE-ATROPINE Inactive NYSTATIN-TRIAMCINOLONE 187084-3.1 UNIT/GM-% EXTERNAL CREAM apply bid NYSTATIN-TRIAMCINOLONE 846095-0.1 UNIT/GM-% EXTERNAL CREAM 8222716 NYSTATIN-TRIAMCINOLONE Inactive NYSTATIN-TRIAMCINOLONE 732805-3.1 UNIT/GM-% EXTERNAL CREAM Apply to area BID NYSTATIN-TRIAMCINOLONE 717572-5.1 UNIT/GM-% EXTERNAL CREAM 1057942 NYSTATIN-TRIAMCINOLONE Inactive PREDNISONE 20 MG ORAL TABLET 1 tablet twice daily for 2 days, then 1 tablet once daily for 2 days PREDNISONE 20 MG ORAL TABLET 597445 PREDNISONE Inactive PREDNISONE 20 MG ORAL TABLET 2 tablets today, then 1 tablet days 2 through 4 PREDNISONE 20 MG ORAL TABLET 224844 PREDNISONE Inactive PREDNISONE 20 MG ORAL TABLET 2 tabs daily for 3 days, 1 tab daily for 3 days, 1/2 tab daily for 2 days PREDNISONE 20 MG ORAL TABLET 841714 PREDNISONE Inactive PROMETHAZINE HCL 25 MG ORAL TABLET 1 four times a day as needed for nausea/ vomiting PROMETHAZINE HCL 25 MG ORAL TABLET 245281 PROMETHAZINE HCL Inactive LISINOPRIL 10 MG ORAL TABLET 1/2-1 tab po every other day LISINOPRIL 10 MG ORAL TABLET 136876 LISINOPRIL Inactive TRAMADOL HCL 50 MG ORAL TABLET 1 po tid with ES Tylenol TRAMADOL HCL 50 MG ORAL TABLET 136713 TRAMADOL HCL Inactive GABAPENTIN 300 MG ORAL CAPSULE 1 po q hs for nerve pain GABAPENTIN 300 MG ORAL CAPSULE 726084 GABAPENTIN Inactive AZITHROMYCIN 250 MG ORAL TABLET 2 po qd x 1 day, then 1 po qd x 4 days 10/16 AZITHROMYCIN 250 MG ORAL TABLET 709343 AZITHROMYCIN Inactive AZITHROMYCIN 250 MG ORAL TABLET 2 po qd x 1 day, then 1 po qd x 4 days 10/21 AZITHROMYCIN 250 MG ORAL TABLET 570316 AZITHROMYCIN Inactive AZITHROMYCIN 250 MG ORAL TABLET 2 po qd x 1 day, then 1 po qd x 4 days 05/07 AZITHROMYCIN 250 MG ORAL TABLET 777920 AZITHROMYCIN Inactive AZITHROMYCIN 250 MG ORAL TABLET 2 po qd x 1 day, then 1 po qd x 4 days 10/13 AZITHROMYCIN 250 MG ORAL TABLET 932124 AZITHROMYCIN Inactive AZITHROMYCIN 250 MG ORAL TABLET 2 po qd x 1 day, then 1 po qd x 4 days 07/12 AZITHROMYCIN 250 MG ORAL TABLET 490841 AZITHROMYCIN Inactive AZITHROMYCIN 500 MG INTRAVENOUS SOLUTION RECONSTITUTED 1 po q day AZITHROMYCIN 500 MG INTRAVENOUS SOLUTION RECONSTITUTED 14596677806 AZITHROMYCIN Inactive WARFARIN SODIUM 4 MG ORAL TABLET 1 tab every evening WARFARIN SODIUM 4 MG ORAL TABLET 778367 WARFARIN SODIUM Inactive VENTOLIN HFA 108 (90 [...] Panel - Chemistry sodium, serum 141 mmol/L 613-254 0283/01/24 potassium, serum 4.3 mmol/L 3.5-5.2 chloride, serum 103 mmol/L 98-107 carbon dioxide, venous blood 30.7 mmol/L 21.0-32.0 blood glucose 90 mg/dL 65-110 calcium, serum 8.5 mg/dL 8.5-10.1 urea nitrogen, blood 16 mg/dL 7-18 creatinine, serum 1.09 mg/dL 0.55-1.30 Lab Report: CBC-QUEST - Hematology erythrocyte (RBC) count 5.13 MILLION/UL 10*6/mm3 4.20-5.80 hemoglobin, blood 14.4 g/dL 13.2-17.1 hematocrit, blood 43.0 % 38.5-50.0 mean corpuscular volume, RBC 83.9 fL 80.0-100.0 mean corpuscular hemoglobin, RBC 28.1 pg 27.0-33.0 mean corpuscular hemoglobin concentration, RBC 33.5 G/DL % 32.0- 36.0 red blood cell distribution width 14.0 % 11.0-15.0 platelet count 172 THOUSAND/UL 10*3/mm3 889-164 0397/04/12 mean platelet volume 8.6 fL 7.5-12.5 leukocyte count, blood 5.4 THOUSAND/UL 10*3/mm3 3.8-10.8 Lab Report: Prostatic Specific Ag, Prothrombin Time - Chemistry prostate specific antigen 0.01 ng/mL 0.00-4.00 Lab Report: Prostatic Specific Ag, Prothrombin Time - Coagulation prothrombin time (patient) 25.9 SECS s 11.1-13.4 international normalized ratio (INR) 3.7 1.0-3.5 Lab Report: Prothrombin Time - Coagulation international normalized ratio (INR) 3.3 1.0-3.5 prothrombin time (patient) 24.3 SECS s 11.1-13.4 international normalized ratio (INR) 4.2 1.0-3.5 prothrombin time (patient) 27.8 SECS s 11.1-13.4 Lab Report: Prothrombin Time Hemochron - Coagulation prothrombin time (patient) 33.0 SECS s 18.9-24.9 Encounters Code Encounter Date Provider Facility CPT-16240 Level 3 Est. Patient 10:34:54 CAMPUS [employer]ICE OFFICER Piotr Wilson Edi [facility] CPT-99947 Level 3 Est. Patient 17:10:19 CDT Nella Harris APRN [facility] CPT-65185 Level 3 Est. Patient 10:48:17 CAMPUS POLICE OFFICER Matthew Rangel MD [facility] CPT-74364 Level 4 Est. Patient 17:15:07 CAMPUS POLICE OFFICER Piotr Wilson Edi [facility] CPT-36458 Level 3 Est. Patient 12:46:13 CAMPUS POLICE OFFICER Piotr Wilson Edi [facility] CPT-03333 Level 3 Est. Patient 15:14:31 CAMPUS POLICE OFFICER Piotr Wilson Edi [facility] CPT-25856 Level 3 Est. Patient 09:20:13 CAMPUS POLICE OFFICER Piotr Wilson Edi [facility] CPT-64435 Level 3 Est. Patient 09:49:40 CDT Piotr Daley [facility] CPT-99648 Level 3 Est. Patient 16:28:11 CDT Piotr Daley [facility] CPT-96285 Level 3 Est. Patient 12:41:58 CAMPUS POLICE OFFICER Piotr Daley [facility] CPT-20073 Level 3 Est. Patient 09:21:24 CDT Piotr Wilson Edi [facility] CPT-31132 Level 3 Est. Patient 09:21:11 CDT Piotr Katie Daley [facility] CPT-72094 Level 3 Est. Patient 11:16:29 CAMPUS POLICE OFFICER Piotr Daley [facility] CPT-90502 Level 3 Est. Patient 18:40:19 CAMPUS POLICE OFFICER Piotr Daley [facility] CPT-73046 Level 3 Est. Patient 19:30:50 CDT Piotr Daley [facility] CPT-15654 Level 3 Est. Patient 22:06:44 CDT Katrina Rinaldi MD PhD [facility] CPT-96605 Level 3 Est. Patient 14:20:00 CDT Piotr Daley [facility] CPT-36644 Level 3 Est. Patient 14:15:22 CAMPUS POLICE OFFICER Piotr Daley [facility] CPT-80678 Level 3 Est. Patient 20:19:57 CAMPUS POLICE OFFICER Piotr Daley [facility] CPT-74541 Level 3 Est. Patient 16:44:32 CDT Piotr Daley [facility] CPT-61939 Level 3 Est. Patient 08:48:46 CAMPUS POLICE OFFICER Piotr Daley [facility] CPT-69580 Level 3 Est. Patient 21:01:21 CDT Piotr Daley [facility] Procedures Code Procedure Name Date Entry Date Standard Description CPT-G0439 Subsequent Annual Wellness Exam 10:34:52 [facility] CPT-27808 BMP - LAB USE ONLY 17:19:11 CAMPUS [employer]ICE OFFICER CPT-91771 PT/INR - LAB USE ONLY 17:19:10 [facility] CPT-00121 Venipuncture Draw Fee 17:19:10 [employer]AMPUS [employer] OFFICER CPT-64299 PT/INR - LAB USE ONLY 08:12:25 [facility] CPT-94001 Venipuncture Draw Fee 08:12:24 CAMPUS [employer]ICE OFFICER CPT-23180 Venipuncture Draw Fee 11:31:07 CAMPUS POLICE OFFICER CPT-24832 TPSA - LAB USE ONLY 11:31:07 CAMPUS POLICE OFFICER CPT-85176 PT/INR - LAB USE ONLY 11:31:07 [facility] CPT-G0439 Subsequent Annual Wellness Exam 09:59:29 CAMPUS POLICE OFFICER CPT-18011 Creatinine - LAB USE ONLY 14:37:55 CAMPUS POLICE OFFICER CPT-22216 PT/INR - LAB USE ONLY 14:37:55 CAMPUS POLICE OFFICER CPT-13074 Venipuncture Draw Fee 14:37:55 CAMPUS POLICE OFFICER CPT-21972 LS spine comp w obliques - XRAY USE ONLY 12:59:25 CAMPUS POLICE OFFICER CPT-38698 PT/INR - LAB USE ONLY 13:49:20 CDT CPT-05890 Venipuncture Draw Fee 13:49:19 CDT CPT-60139 PT/INR - LAB USE ONLY 15:48:49 CDT CPT-44382 Venipuncture Draw Fee 15:48:49 CDT CPT-76448 Venipuncture Draw Fee 11:31:59 CDT CPT-99895 PT/INR - LAB USE ONLY 11:31:59 CDT CPT-87883 Venipuncture Draw Fee 13:29:15 CDT CPT-41528 Thoracolumbar AP/Lat 15:19:19 CAMPUS [employer]ICE OFFICER CPT-G0438 Initial Annual Wellness Exam 12:18:54 CAMPUS POLICE OFFICER CPT-56115 Knee 3V 09:57:38 CDT CPT-OV Office Visit 15:45:01 CAMPUS POLICE OFFICER CPT-85909 Abd compl w upright 17:10:25 CDT
--- OUTSIDE RECORDS SUMMARY | 2018-07-18 09:33 | XMS REPORT | Clinical Summary ---
Author Author Admin, Isidra Organization [employer] Address Unknown Phone Unavailable Allergies, Adverse Reactions, [...] Coronary atherosclerosis of unspecified type of vessel, [place] or graft Back pain, thoracic region, [...] po q hs for nerve pain GABAPENTIN 70624782500 Active Piotr Daley DO Active WARFARIN SODIUM 5 MG TABS 1 tablet daily WARFARIN SODIUM 14240184427 Active Simi Meyers Active TRAMADOL HCL 50 MG TABS 1 po tid with ES Tylenol TRAMADOL HCL 15416826509 Active Piotr Daley DO Active PREDNISONE 20 MG TAB 2 tablets today, then 1 tablet days 2 through 4 PREDNISONE 07125913024 No Longer Active Piotr Daley DO Active AZITHROMYCIN 250 MG TABS 2 po qd x 1 day, then 1 po qd x 4 days AZITHROMYCIN 74445282836 No Longer Active Piotr Daley DO Active IBUPROFEN 800 MG TABS 1 tab every 8 hours as needed IBUPROFEN 91177113681 No Longer Active Piotr Daley DO Active LOMOTIL 2.5-0.025 MG TAB 1 to 2 four times a day as needed for diarrhea 10/13 DIPHENOXYLATE-ATROPINE 92250524883 No Longer Active Piotr Daley DO Active WARFARIN SODIUM 4 MG TABS 1 tab every evening WARFARIN SODIUM 47029188736 No Longer Active Piotr Daley DO Active PREDNISONE 20 MG TAB 1 tablet twice daily for 2 days, then 1 tablet once daily for 2 days PREDNISONE 80394294620 No Longer Active Piotr Daley DO Active PROMETHAZINE HCL 25 MG TABS 1 four times a day as needed for nausea/vomiting PROMETHAZINE HCL 82126603540 No Longer Active Piotr Daley DO Active TUSSIONEX PENNKINETIC ER 10-8 MG/5ML LQCR 5ml po q12hr PRN Cough HYDROCOD POLST-CHLORPHEN POLST 91548166013 No Longer Active Piotr Daley DO Active AZITHROMYCIN 250 MG TABS 2 po qd x 1 day, then 1 po qd x 4 days AZITHROMYCIN 60774826665 No Longer Active Piotr Daley DO Active AZITHROMYCIN 250 MG TABS 2 po qd x 1 day, then 1 po qd x 4 days AZITHROMYCIN 54480534438 No Longer Active Piotr Daley DO Active LISINOPRIL-HYDROCHLOROTHIAZIDE 10-12.5 MG TABS 1 tab by mouth daily LISINOPRIL-HYDROCHLOROTHIAZIDE 74557385536 Active Hilary Ma MA Active LISINOPRIL 10 MG TABS 1/2-1 tab po every other day LISINOPRIL 25549352708 No Longer Active Piotr Daley DO Active VENTOLIN HFA 108 (90 BASE) MCG/ACT AERS 2 puffs four times a day PRN cough ALBUTEROL SULFATE 89329322212 No Longer Active Piotr Daley DO Active NYSTATIN-TRIAMCINOLONE 078983-5.1 UNIT/GM-% CREA Apply to area BID NYSTATIN-TRIAMCINOLONE 26721512057 No Longer Active Alena Chavira [facility] [employer] STITCHER Active PHISOHEX 3 % LIQD Use Directed HEXACHLOROPHENE 15571606550 No Longer Active Sandra [place] Active AZITHROMYCIN 250 MG TABS 2 po qd x 1 day, then 1 po qd x 4 days AZITHROMYCIN 24078253356 No Longer Active Katrina Rinaldi MD PhD Active AZITHROMYCIN 250 MG TABS 2 po qd x 1 day, then 1 po qd x 4 days AZITHROMYCIN 77629178573 No Longer Active Piotr Daley DO Active AZITHROMYCIN 500 MG SOLR 1 po q day AZITHROMYCIN 98274303544 No Longer Active Piotr Daley DO Active NYSTATIN-TRIAMCINOLONE 132870-4.1 UNIT/GM-% CREA apply bid 08/19 NYSTATIN-TRIAMCINOLONE 83372612801 No Longer Active Piotr Daley DO Active IBUPROFEN 800 MG TABS 1 po q 8 hours prn pain sparinly IBUPROFEN 05049692110 No Longer Active Piotr Daley DO Active VITAMIN D3 5000 UNIT CAPS 1 po daily CHOLECALCIFEROL 92667606656 Active Piotr Daley DO Active IBUPROFEN 800 MG TABS 1 po q 8 hours prn pain sparinly IBUPROFEN 800 MG TABS 110225 IBUPROFEN Inactive NYSTATIN-TRIAMCINOLONE 780198-6.1 UNIT/GM-% CREA apply bid 08/19 NYSTATIN-TRIAMCINOLONE 688036-6.1 UNIT/GM-% CREA 1921452 NYSTATIN- TRIAMCINOLONE Inactive AZITHROMYCIN 500 MG SOLR 1 po q day AZITHROMYCIN 500 MG SOLR 89127276721 AZITHROMYCIN Inactive VENTOLIN HFA 108 (90 BASE) MCG/ACT AERS 2 puffs four times a day PRN cough VENTOLIN HFA 108 (90 BASE) MCG/ACT AERS ALBUTEROL SULFATE Inactive LISINOPRIL 10 MG TABS 1/2-1 tab po every other day LISINOPRIL 10 MG TABS 058041 LISINOPRIL Inactive TUSSIONEX PENNKINETIC ER 10-8 MG/5ML LQCR 5ml po q12hr PRN Cough TUSSIONEX PENNKINETIC ER 10-8 MG/5ML LQCR HYDROCOD POLST- CHLORPHEN POLST Inactive PROMETHAZINE HCL 25 MG TABS 1 four times a day as needed for nausea/vomiting PROMETHAZINE HCL 25 MG TABS 928088 PROMETHAZINE HCL Inactive PREDNISONE 20 MG TAB 1 tablet twice daily for 2 days, then 1 tablet once daily for 2 days PREDNISONE 20 MG TAB 430035 PREDNISONE Inactive WARFARIN SODIUM 4 MG TABS 1 tab every evening WARFARIN SODIUM 4 MG TABS 937010 WARFARIN SODIUM Inactive LOMOTIL 2.5-0.025 MG TAB 1 to 2 four times a day as needed for diarrhea 10/13 LOMOTIL 2.5-0.025 MG TAB 0928737 DIPHENOXYLATE-ATROPINE Inactive IBUPROFEN 800 MG TABS 1 tab every 8 hours as needed IBUPROFEN 800 MG TABS 950023 IBUPROFEN Inactive PREDNISONE 20 MG TAB 2 tablets today, then 1 tablet days 2 through 4 PREDNISONE 20 MG TAB 012630 PREDNISONE Inactive AZITHROMYCIN 250 MG TABS 2 po qd x 1 day, then 1 po qd x 4 days AZITHROMYCIN 250 MG TABS 5179554 AZITHROMYCIN Inactive AZITHROMYCIN 250 MG TABS 2 po qd x 1 day, then 1 po qd x 4 days AZITHROMYCIN 250 MG TABS 5907782 AZITHROMYCIN Inactive NYSTATIN-TRIAMCINOLONE 803445-9.1 UNIT/GM-% CREA Apply to area BID NYSTATIN-TRIAMCINOLONE 714411-4.1 UNIT/GM-% CREA 6743873 NYSTATIN-TRIAMCINOLONE Inactive AZITHROMYCIN 250 MG TABS 2 po qd x 1 day, then 1 po qd x 4 days AZITHROMYCIN 250 MG TABS 7307893 AZITHROMYCIN Inactive AZITHROMYCIN 250 MG TABS 2 po qd x 1 day, then 1 po qd x 4 days AZITHROMYCIN 250 MG TABS 9039491 AZITHROMYCIN Inactive AZITHROMYCIN 250 MG TABS 2 po qd x 1 day, then 1 po qd x 4 days AZITHROMYCIN 250 MG TABS 6925616 AZITHROMYCIN Inactive Advance Directives Directive Description Start [...] Panel - Chemistry sodium, serum 141 mmol/L 771-277 4751/06/28 carbon dioxide, venous blood 31.0 mmol/L 21.0-32.0 [...] Negative Encounters Code Encounter Date Provider Facility CPT-05713 Level 4 Est. Patient 17:15:07 CALCULATING MACHINE MECHANIC Piotr Daley [facility] CPT-22708 Level 3 Est. Patient 12:46:13 CALCULATING MACHINE MECHANIC Piotr Katie Edi [facility] CPT-81323 Level 3 Est. Patient 15:14:31 CALCULATING MACHINE MECHANIC Piotr Katie Edi [facility] CPT-19637 Level 3 Est. Patient 09:20:13 CALCULATING MACHINE MECHANIC Piotr Katie Edi [facility] CPT-42101 Level 3 Est. Patient 09:49:40 CDT Piotr Katie Edi [facility] CPT-09692 Level 3 Est. Patient 16:28:11 CDT Piotr Katie Edi [facility] CPT-24972 Level 3 Est. Patient 12:41:58 CALCULATING MACHINE MECHANIC Piotr Katie Edi [facility] CPT-73174 Level 3 Est. Patient 09:21:24 CDT Piotr Daley [facility] CPT-30108 Level 3 Est. Patient 09:21:11 CDT Piotr Katie Edi [facility] CPT-46874 Level 3 Est. Patient 11:16:29 CALCULATING MACHINE MECHANIC Piotr Daley [facility] CPT-73376 Level 3 Est. Patient 18:40:19 CALCULATING MACHINE MECHANIC Piotr Daley [facility] CPT-35300 Level 3 Est. Patient 19:30:50 CDT Piotr Daley [facility] CPT-02167 Level 3 Est. Patient 22:06:44 CDT Katrina Rinaldi MD [facility] CPT-40193 Level 3 Est. Patient 14:20:00 CDT Piotr Daley [facility] CPT-78476 Level 3 Est. Patient 14:15:22 CALCULATING MACHINE MECHANIC Piotr Daley [facility] CPT-64576 Level 3 Est. Patient 20:19:57 CALCULATING MACHINE MECHANIC Piotr Daley [facility] CPT-59771 Level 3 Est. Patient 16:44:32 CDT Piotr Daley [facility] CPT-72840 Level 3 Est. Patient 08:48:46 CALCULATING MACHINE MECHANIC Piotr Daley [facility] CPT-01146 Level 3 Est. Patient 21:01:21 CDT Piotr Daley [facility] Procedures Code Procedure Name Date Entry Date Standard Description CPT-57987 Creatinine - LAB USE ONLY 14:37:55 CALCULATING MACHINE MECHANIC CPT-00479 PT/INR - LAB USE ONLY 14:37:55 CALCULATING MACHINE MECHANIC CPT-99360 Venipuncture Draw Fee 14:37:55 CALCULATING MACHINE MECHANIC CPT-91898 LS spine comp w obliques - XRAY USE ONLY 12:59:25 CALCULATING MACHINE MECHANIC CPT-61952 PT/INR - LAB USE ONLY 13:49:20 CDT CPT-31479 Venipuncture Draw Fee 13:49:19 CDT CPT-24380 PT/INR - LAB USE ONLY 15:48:49 CDT CPT-10506 Venipuncture Draw Fee 15:48:49 CDT CPT-12159 Venipuncture Draw Fee 11:31:59 CDT CPT-46794 PT/INR - LAB USE ONLY 11:31:59 CDT CPT-92997 Venipuncture Draw Fee 13:29:15 CDT CPT-49825 Thoracolumbar AP/Lat 15:19:19 CALCULATING MACHINE MECHANIC CPT-G0438 Initial Annual Wellness Exam 12:18:54 CALCULATING MACHINE MECHANIC CPT-35737 Knee 3V 09:57:38 CDT CPT-OV Office Visit 15:45:01 CALCULATING MACHINE MECHANIC CPT-67524 Abd compl w upright 17:10:25 CDT
--- OUTSIDE RECORDS SUMMARY | 2018-07-18 09:34 | XMS REPORT | Clinical Summary ---
Author Author Admin, Isidra Organization [id number] Address Unknown Phone Unavailable Allergies, Adverse Reactions, [...] neoplasm of prostate V10.46 Active Alina Meyers HEDDLER Personal history of malignant neoplasm of prostate [...] neuropathy Insect bite 919.4 Active Nella Harris HEDDLER Insect bite, nonvenomous, of other, multiple, and unspecified sites, without mention of infection Pruritus 698.9 Active Nella Harris HEDDLER Unspecified pruritic disorder FLANK PAIN, RIGHT ICD-789.09 [...] mouth BID x10 days 10/01 DOXYCYCLINE HYCLATE 06374186914 No Longer Active Nella Steven HEDDLER Active WARFARIN SODIUM 5 MG TABS 1 tablet daily M-S, 1/2 tab on Heart WARFARIN SODIUM 69627324074 Active Enlla Cortland HEDDLER Active PROAIR HFA 108 (90 BASE) MCG/ACT AERS 1-2 puffs four times a day as needed ALBUTEROL SULFATE 52993191457 Active Matthew Rangel MD Active PREDNISONE 20 MG TAB 2 tabs daily for 3 days, 1 tab daily for 3 days, 1/2 tab daily for 2 days PREDNISONE 86128853041 No Longer Active Matthew Rangel MD Active TRAMADOL HCL 50 MG TABS 1 po tid with ES Tylenol TRAMADOL HCL 03282362988 No Longer Active Matthew Rangel MD Active GABAPENTIN 300 MG CAPS 1 po q hs for nerve pain GABAPENTIN 19346589824 No Longer Active Matthew Rangel MD Active PREDNISONE 20 MG TAB 2 tablets today, then 1 tablet days 2 through 4 PREDNISONE 99540064512 No Longer Active Piotr Daley DO Active AZITHROMYCIN 250 MG TABS 2 po qd x 1 day, then 1 po qd x 4 days AZITHROMYCIN 07728144167 No Longer Active Piotr Daley DO Active IBUPROFEN 800 MG TABS 1 tab every 8 hours as needed IBUPROFEN 74017656140 No Longer Active Piotr Daley DO Active LOMOTIL 2.5-0.025 MG TAB 1 to 2 four times a day as needed for diarrhea 10/13 DIPHENOXYLATE-ATROPINE 62642171069 No Longer Active Piotr Daley DO Active WARFARIN SODIUM 4 MG TABS 1 tab every evening WARFARIN SODIUM 13929868334 No Longer Active Piotr Daley DO Active PREDNISONE 20 MG TAB 1 tablet twice daily for 2 days, then 1 tablet once daily for 2 days PREDNISONE 69391314408 No Longer Active Piotr Daley DO Active PROMETHAZINE HCL 25 MG TABS 1 four times a day as needed for nausea/vomiting PROMETHAZINE HCL 44177943360 No Longer Active Piotr Daley DO Active TUSSIONEX PENNKINETIC ER 10-8 MG/5ML LQCR 5ml po q12hr PRN Cough HYDROCOD POLST-CHLORPHEN POLST 77008049868 No Longer Active Piotr Daley DO Active AZITHROMYCIN 250 MG TABS 2 po qd x 1 day, then 1 po qd x 4 days AZITHROMYCIN 31574284362 No Longer Active Piotr Daley DO Active AZITHROMYCIN 250 MG TABS 2 po qd x 1 day, then 1 po qd x 4 days AZITHROMYCIN 68187583793 No Longer Active Piotr Daley DO Active LISINOPRIL-HYDROCHLOROTHIAZIDE 10-12.5 MG TABS 1 tab by mouth daily LISINOPRIL-HYDROCHLOROTHIAZIDE 12561446539 Active Catalina Freitas Active LISINOPRIL 10 MG TABS 1/2-1 tab po every other day LISINOPRIL 74666717086 No Longer Active Piotr W Edi DO Active VENTOLIN HFA 108 (90 BASE) MCG/ACT AERS 2 puffs four times a day PRN cough ALBUTEROL SULFATE 58047663804 No Longer Active Piotr Daley DO Active NYSTATIN-TRIAMCINOLONE 988865-1.1 UNIT/GM-% CREA Apply to area BID NYSTATIN-TRIAMCINOLONE 48587552593 No Longer Active Alena Oswaldum LEASE ADMINISTRATOR Active PHISOHEX 3 % LIQD Use Directed HEXACHLOROPHENE 77756027590 No Longer Active Sandra Cal[place] Active AZITHROMYCIN 250 MG TABS 2 po qd x 1 day, then 1 po qd x 4 days AZITHROMYCIN 23248996762 No Longer Active Katrina Rinaldi MD PhD Active AZITHROMYCIN 250 MG TABS 2 po qd x 1 day, then 1 po qd x 4 days AZITHROMYCIN 81121990863 No Longer Active Piotr Daley DO Active AZITHROMYCIN 500 MG SOLR 1 po q day AZITHROMYCIN 73903975892 No Longer Active Piotr Daley DO Active NYSTATIN-TRIAMCINOLONE 376295-8.1 UNIT/GM-% CREA apply bid 08/19 NYSTATIN-TRIAMCINOLONE 65810372604 No Longer Active Piotr Daley DO Active IBUPROFEN 800 MG TABS 1 po q 8 hours prn pain sparinly IBUPROFEN 91906726796 No Longer Active Piotr Daley DO Active VITAMIN D3 5000 UNIT CAPS 1 po daily CHOLECALCIFEROL 87491978384 Active Piotr Daley DO Active IBUPROFEN 800 MG TABS 1 po q 8 hours prn pain sparinly IBUPROFEN 800 MG TABS 463600 IBUPROFEN Inactive NYSTATIN-TRIAMCINOLONE 695517-9.1 UNIT/GM-% CREA apply bid 08/19 NYSTATIN-TRIAMCINOLONE 893387-3.1 UNIT/GM-% CREA 6255864 NYSTATIN- TRIAMCINOLONE Inactive AZITHROMYCIN 500 MG SOLR 1 po q day AZITHROMYCIN 500 MG SOLR 38095002955 AZITHROMYCIN Inactive VENTOLIN HFA 108 (90 BASE) MCG/ACT AERS 2 puffs four times a day PRN cough VENTOLIN HFA 108 (90 BASE) MCG/ACT AERS ALBUTEROL SULFATE Inactive LISINOPRIL 10 MG TABS 1/2-1 tab po every other day LISINOPRIL 10 MG TABS 909274 LISINOPRIL Inactive TUSSIONEX PENNKINETIC ER 10-8 MG/5ML LQCR 5ml po q12hr PRN Cough TUSSIONEX PENNKINETIC ER 10-8 MG/5ML LQCR HYDROCOD POLST- CHLORPHEN POLST Inactive PROMETHAZINE HCL 25 MG TABS 1 four times a day as needed for nausea/vomiting PROMETHAZINE HCL 25 MG TABS 359592 PROMETHAZINE HCL Inactive PREDNISONE 20 MG TAB 1 tablet twice daily for 2 days, then 1 tablet once daily for 2 days PREDNISONE 20 MG TAB 964909 PREDNISONE Inactive WARFARIN SODIUM 4 MG TABS 1 tab every evening WARFARIN SODIUM 4 MG TABS 992465 WARFARIN SODIUM Inactive LOMOTIL 2.5-0.025 MG TAB 1 to 2 four times a day as needed for diarrhea 10/13 LOMOTIL 2.5-0.025 MG TAB 2563451 DIPHENOXYLATE-ATROPINE Inactive IBUPROFEN 800 MG TABS 1 tab every 8 hours as needed IBUPROFEN 800 MG TABS 342397 IBUPROFEN Inactive PREDNISONE 20 MG TAB 2 tablets today, then 1 tablet days 2 through 4 PREDNISONE 20 MG TAB 518149 PREDNISONE Inactive GABAPENTIN 300 MG CAPS 1 po q hs for nerve pain GABAPENTIN 300 MG CAPS 934232 GABAPENTIN Inactive TRAMADOL HCL 50 MG TABS 1 po tid with ES Tylenol TRAMADOL HCL 50 MG TABS 892847 TRAMADOL HCL Inactive AZITHROMYCIN 250 MG TABS 2 po qd x 1 day, then 1 po qd x 4 days AZITHROMYCIN 250 MG TABS 6659737 AZITHROMYCIN Inactive AZITHROMYCIN 250 MG TABS 2 po qd x 1 day, then 1 po qd x 4 days AZITHROMYCIN 250 MG TABS 5993401 AZITHROMYCIN Inactive NYSTATIN-TRIAMCINOLONE 232253-9.1 UNIT/GM-% CREA Apply to area BID NYSTATIN-TRIAMCINOLONE 540212-0.1 UNIT/GM-% CREA 6303276 NYSTATIN-TRIAMCINOLONE Inactive AZITHROMYCIN 250 MG TABS 2 po qd x 1 day, then 1 po qd x 4 days AZITHROMYCIN 250 MG TABS 1689997 AZITHROMYCIN Inactive AZITHROMYCIN 250 MG TABS 2 po qd x 1 day, then 1 po qd x 4 days AZITHROMYCIN 250 MG TABS 4850911 AZITHROMYCIN Inactive AZITHROMYCIN 250 MG TABS 2 po qd x 1 day, then 1 po qd x 4 days AZITHROMYCIN 250 MG TABS 2467682 AZITHROMYCIN Inactive PREDNISONE 20 MG TAB 2 tabs daily for 3 days, 1 tab daily for 3 days, 1/2 tab daily for 2 days PREDNISONE 20 MG TAB 245736 PREDNISONE Inactive DOXYCYCLINE HYCLATE 100 MG CAP 1 cap by mouth BID x10 days 10/01 DOXYCYCLINE HYCLATE 100 MG CAP 9830447 DOXYCYCLINE HYCLATE Inactive Advance Directives Directive Description [...] Panel - Chemistry sodium, serum 141 mmol/L 495-477 6406/01/24 potassium, serum 4.3 mmol/L 3.5-5.2 chloride, serum [...] % 11.0-15.0 platelet count 172 THOUSAND/UL 10*3/mm3 234-050 3029/04/12 mean platelet volume 8.6 fL 7.5-12.5 Lab [...] 18.9-24.9 Encounters Code Encounter Date Provider Facility CPT-03980 Level 3 Est. Patient 17:10:19 CDT Nella Harris [facility] CPT-68749 Level 3 Est. Patient 10:48:17 MANAGER CARD Matthew Rangel MD [facility] CPT-31922 Level 4 Est. Patient 17:15:07 MANAGER CARD Piotr Daley [facility] CPT-65759 Level 3 Est. Patient 12:46:13 MANAGER CARD Piotr Daley [facility] CPT-71230 Level 3 Est. Patient 15:14:31 MANAGER CARD Piotr Daley [facility] CPT-13359 Level 3 Est. Patient 09:20:13 MANAGER CARD Piotr Daley [facility] CPT-12588 Level 3 Est. Patient 09:49:40 CDT Piotr Daley [facility] CPT-48330 Level 3 Est. Patient 16:28:11 CDT Piotr Daley [facility] CPT-24484 Level 3 Est. Patient 12:41:58 MANAGER CARD Piotr Daley [facility] CPT-67389 Level 3 Est. Patient 09:21:24 CDT Piotr Daley [facility] CPT-38383 Level 3 Est. Patient 09:21:11 CDT Piotr Daley [facility] CPT-79839 Level 3 Est. Patient 11:16:29 MANAGER CARD Piotr Daley [facility] CPT-89109 Level 3 Est. Patient 18:40:19 MANAGER CARD Piotr Daley [facility] CPT-30939 Level 3 Est. Patient 19:30:50 CDT Piotr Daley [facility] CPT-08641 Level 3 Est. Patient 22:06:44 CDT Katrina Rinaldi MD PhD [facility] CPT-44750 Level 3 Est. Patient 14:20:00 CDT Piotr Daley [facility] CPT-44574 Level 3 Est. Patient 14:15:22 MANAGER CARD Piotr Daley [facility] CPT-85540 Level 3 Est. Patient 20:19:57 MANAGER CARD Piotr Daley [facility] CPT-62726 Level 3 Est. Patient 16:44:32 CDT Piotr Daley [facility] CPT-36625 Level 3 Est. Patient 08:48:46 MANAGER CARD Piotr Daley [facility] CPT-25530 Level 3 Est. Patient 21:01:21 CDT Piotr Daley [facility] Procedures Code Procedure Name Date Entry Date Standard Description CPT-15143 BMP - LAB USE ONLY 17:19:11 MANAGER CARD CPT-69008 PT/INR - LAB USE ONLY 17:19:10 MANAGER CARD CPT-49428 Venipuncture Draw Fee 17:19:10 MANAGER CARD CPT-64939 PT/INR - LAB USE ONLY 08:12:25 MANAGER CARD CPT-30742 Venipuncture Draw Fee 08:12:24 MANAGER CARD CPT-37993 Venipuncture Draw Fee 11:31:07 MANAGER CARD CPT-62013 TPSA - LAB USE ONLY 11:31:07 MANAGER CARD CPT-52835 PT/INR - LAB USE ONLY 11:31:07 MANAGER CARD CPT-G0439 [facility] Annual Wellness Exam 09:59:29 MANAGER CARD CPT-45696 Creatinine - LAB USE ONLY 14:37:55 MANAGER CARD CPT-66214 PT/INR - LAB USE ONLY 14:37:55 MANAGER CARD CPT-30322 Venipuncture Draw Fee 14:37:55 MANAGER CARD CPT-18430 LS spine comp w obliques - XRAY USE ONLY 12:59:25 MANAGER CARD CPT-70724 PT/INR - LAB USE ONLY 13:49:20 CDT CPT-83957 Venipuncture Draw Fee 13:49:19 CDT CPT-56927 PT/INR - LAB USE ONLY 15:48:49 CDT CPT-35445 Venipuncture Draw Fee 15:48:49 CDT CPT-27630 Venipuncture Draw Fee 11:31:59 CDT CPT-89432 PT/INR - LAB USE ONLY 11:31:59 CDT CPT-29787 Venipuncture Draw Fee 13:29:15 CDT CPT-62209 Thoracolumbar AP/Lat 15:19:19 MANAGER CARD CPT-G0438 Initial Annual Wellness Exam 12:18:54 MANAGER CARD CPT-39675 Knee 3V 09:57:38 CDT CPT-OV Office Visit 15:45:01 MANAGER CARD CPT-77337 Abd compl w upright 17:10:25 CDT
--- OUTSIDE RECORDS SUMMARY | 2018-07-18 09:34 | XMS REPORT | Clinical Summary ---
Author Author Admin, Isidra Organization [employer] Address Unknown Phone Unavailable Allergies, Adverse Reactions, [...] use of anticoagulants Seborrheic keratosis 702.19 Active Poitr Daley DO Other seborrheic keratosis Bronchitis-Acute 466.0 [...] Coronary atherosclerosis of unspecified type of vessel, lummi or graft Back pain, thoracic region, left [...] po q hs for nerve pain GABAPENTIN 60372551451 Active Piotr Daley DO Active WARFARIN SODIUM 5 MG TABS 1 tablet daily WARFARIN SODIUM 17102726723 Active Simi Meyers Active TRAMADOL HCL 50 MG TABS 1 po tid with ES Tylenol TRAMADOL HCL 58531367904 Active Piotr Daley DO Active PREDNISONE 20 MG TAB 2 tablets today, then 1 tablet days 2 through 4 PREDNISONE 55367495091 No Longer Active Piotr Daley DO Active AZITHROMYCIN 250 MG TABS 2 po qd x 1 day, then 1 po qd x 4 days AZITHROMYCIN 96096484441 No Longer Active Piotr Daley DO Active IBUPROFEN 800 MG TABS 1 tab every 8 hours as needed IBUPROFEN 46524744348 No Longer Active Piotr Daley DO Active LOMOTIL 2.5-0.025 MG TAB 1 to 2 four times a day as needed for diarrhea 10/13 DIPHENOXYLATE-ATROPINE 97448455916 No Longer Active Piotr Daley DO Active WARFARIN SODIUM 4 MG TABS 1 tab every evening WARFARIN SODIUM 30125121509 No Longer Active Piotr Daley DO Active PREDNISONE 20 MG TAB 1 tablet twice daily for 2 days, then 1 tablet once daily for 2 days PREDNISONE 51432808376 No Longer Active Piotr Daley DO Active PROMETHAZINE HCL 25 MG TABS 1 four times a day as needed for nausea/vomiting PROMETHAZINE HCL 56503583287 No Longer Active Piotr Daley DO Active TUSSIONEX PENNKINETIC ER 10-8 MG/5ML LQCR 5ml po q12hr PRN Cough HYDROCOD POLST-CHLORPHEN POLST 74992676321 No Longer Active Piotr Daley DO Active AZITHROMYCIN 250 MG TABS 2 po qd x 1 day, then 1 po qd x 4 days AZITHROMYCIN 06564555114 No Longer Active Piotr Daley DO Active AZITHROMYCIN 250 MG TABS 2 po qd x 1 day, then 1 po qd x 4 days AZITHROMYCIN 50718986242 No Longer Active Piotr Daley DO Active LISINOPRIL-HYDROCHLOROTHIAZIDE 10-12.5 MG TABS 1 tab by mouth daily LISINOPRIL-HYDROCHLOROTHIAZIDE 80378372410 Active Simi Meyers Active LISINOPRIL 10 MG TABS 1/2-1 tab po every other day LISINOPRIL 22377858440 No Longer Active Piotr Daley DO Active VENTOLIN HFA 108 (90 BASE) MCG/ACT AERS 2 puffs four times a day PRN cough ALBUTEROL SULFATE 63019233207 No Longer Active Piotr Daley DO Active NYSTATIN-TRIAMCINOLONE 407036-9.1 UNIT/GM-% CREA Apply to area BID NYSTATIN-TRIAMCINOLONE 27638967775 No Longer Active Alena Chavira [employer] W[employer] Active PHISOHEX 3 % LIQD Use Directed HEXACHLOROPHENE 93991009661 No Longer Active Sandra [place] Active AZITHROMYCIN 250 MG TABS 2 po qd x 1 day, then 1 po qd x 4 days AZITHROMYCIN 68113059742 No Longer Active Katrina Rinaldi MD PhD Active AZITHROMYCIN 250 MG TABS 2 po qd x 1 day, then 1 po qd x 4 days AZITHROMYCIN 70458426890 No Longer Active Piotr Daley DO Active AZITHROMYCIN 500 MG SOLR 1 po q day AZITHROMYCIN 96759377733 No Longer Active Piotr Daley DO Active NYSTATIN-TRIAMCINOLONE 793300-4.1 UNIT/GM-% CREA apply bid 08/19 NYSTATIN-TRIAMCINOLONE 52192838047 No Longer Active Piotr Daley DO Active IBUPROFEN 800 MG TABS 1 po q 8 hours prn pain sparinly IBUPROFEN 37430121274 No Longer Active Piotr Daley DO Active VITAMIN D3 5000 UNIT CAPS 1 po daily CHOLECALCIFEROL 96184438888 Active Piotr Daley DO Active IBUPROFEN 800 MG TABS 1 po q 8 hours prn pain sparinly IBUPROFEN 800 MG TABS 930237 IBUPROFEN Inactive NYSTATIN-TRIAMCINOLONE 053132-1.1 UNIT/GM-% CREA apply bid 08/19 NYSTATIN-TRIAMCINOLONE 593615-8.1 UNIT/GM-% CREA 0786222 NYSTATIN- TRIAMCINOLONE Inactive AZITHROMYCIN 500 MG SOLR 1 po q day AZITHROMYCIN 500 MG SOLR 92532626170 AZITHROMYCIN Inactive VENTOLIN HFA 108 (90 BASE) MCG/ACT AERS 2 puffs four times a day PRN cough VENTOLIN HFA 108 (90 BASE) MCG/ACT AERS ALBUTEROL SULFATE Inactive LISINOPRIL 10 MG TABS 1/2-1 tab po every other day LISINOPRIL 10 MG TABS 698872 LISINOPRIL Inactive TUSSIONEX PENNKINETIC ER 10-8 MG/5ML LQCR 5ml po q12hr PRN Cough TUSSIONEX PENNKINETIC ER 10-8 MG/5ML LQCR HYDROCOD POLST- CHLORPHEN POLST Inactive PROMETHAZINE HCL 25 MG TABS 1 four times a day as needed for nausea/vomiting PROMETHAZINE HCL 25 MG TABS 914023 PROMETHAZINE HCL Inactive PREDNISONE 20 MG TAB 1 tablet twice daily for 2 days, then 1 tablet once daily for 2 days PREDNISONE 20 MG TAB 309933 PREDNISONE Inactive WARFARIN SODIUM 4 MG TABS 1 tab every evening WARFARIN SODIUM 4 MG TABS 623714 WARFARIN SODIUM Inactive LOMOTIL 2.5-0.025 MG TAB 1 to 2 four times a day as needed for diarrhea 10/13 LOMOTIL 2.5-0.025 MG TAB 9574343 DIPHENOXYLATE-ATROPINE Inactive IBUPROFEN 800 MG TABS 1 tab every 8 hours as needed IBUPROFEN 800 MG TABS 439646 IBUPROFEN Inactive PREDNISONE 20 MG TAB 2 tablets today, then 1 tablet days 2 through 4 PREDNISONE 20 MG TAB 341476 PREDNISONE Inactive AZITHROMYCIN 250 MG TABS 2 po qd x 1 day, then 1 po qd x 4 days AZITHROMYCIN 250 MG TABS 1224922 AZITHROMYCIN Inactive AZITHROMYCIN 250 MG TABS 2 po qd x 1 day, then 1 po qd x 4 days AZITHROMYCIN 250 MG TABS 1877761 AZITHROMYCIN Inactive NYSTATIN-TRIAMCINOLONE 506572-8.1 UNIT/GM-% CREA Apply to area BID NYSTATIN-TRIAMCINOLONE 549840-8.1 UNIT/GM-% CREA 1608776 NYSTATIN-TRIAMCINOLONE Inactive AZITHROMYCIN 250 MG TABS 2 po qd x 1 day, then 1 po qd x 4 days AZITHROMYCIN 250 MG TABS 9695728 AZITHROMYCIN Inactive AZITHROMYCIN 250 MG TABS 2 po qd x 1 day, then 1 po qd x 4 days AZITHROMYCIN 250 MG TABS 5581253 AZITHROMYCIN Inactive AZITHROMYCIN 250 MG TABS 2 po qd x 1 day, then 1 po qd x 4 days AZITHROMYCIN 250 MG TABS 9619723 AZITHROMYCIN Inactive Advance Directives Directive Description Start [...] Panel - Chemistry sodium, serum 141 mmol/L 958-343 6375/01/24 potassium, serum 4.3 mmol/L 3.5-5.2 chloride, serum 103 mmol/L 98-107 carbon dioxide, venous blood 30.7 mmol/L 21.0-32.0 blood glucose 90 mg/dL 65-110 calcium, serum 8.5 mg/dL 8.5-10.1 urea nitrogen, blood 16 mg/dL 7-18 creatinine, serum 1.09 mg/dL 0.55-1.30 Lab Report: CBC - Hematology mean corpuscular hemoglobin, RBC 28.4 pg 27.0-31.2 mean corpuscular hemoglobin concentration, RBC 33.9 G/DL % 31.8- 35.4 red blood cell distribution width 15.0 % 11.6-14.8 platelet count 210 10^3/MM^3 10*3/mm3 695-399 6602/02/09 mean corpuscular volume, RBC 84 fL 80-97 hematocrit, blood 43.6 % 41.0-53.0 hemoglobin, blood 14.8 g/dL 13.5-17.5 erythrocyte (RBC) count 5.20 10^6/MM^3 10*6/mm3 4.69-6.13 leukocyte count, blood 5.2 10^3/MM^3 10*3/mm3 4.6-10.2 Lab Report: Comp. Metabolic Panel - Chemistry sodium, serum 141 mmol/L 746-501 2801/06/28 carbon dioxide, venous blood 31.0 mmol/L 21.0-32.0 [...] 1.0-3.5 Encounters Code Encounter Date Provider Facility CPT-37021 Level 4 Est. Patient 17:15:07 BUSINESS ARCHITECT Piotr Daley [facility] CPT-00670 Level 3 Est. Patient 12:46:13 BUSINESS ARCHITECT Piotr Daley [facility] CPT-64421 Level 3 Est. Patient 15:14:31 BUSINESS ARCHITECT Piotr Daley [facility] CPT-57773 Level 3 Est. Patient 09:20:13 BUSINESS ARCHITECT Piotr Daley [facility] CPT-81014 Level 3 Est. Patient 09:49:40 CDT Piotr Daley [facility] CPT-09883 Level 3 Est. Patient 16:28:11 CDT Piotr Daley [facility] CPT-03808 Level 3 Est. Patient 12:41:58 BUSINESS ARCHITECT Piotr Daley [facility] CPT-26952 Level 3 Est. Patient 09:21:24 CDT Piotr Daley [facility] CPT-45946 Level 3 Est. Patient 09:21:11 CDT Piotr Daley [facility] CPT-69339 Level 3 Est. Patient 11:16:29 BUSINESS ARCHITECT Piotr Daley [facility] CPT-24019 Level 3 Est. Patient 18:40:19 BUSINESS ARCHITECT Piotr Daley [facility] CPT-17935 Level 3 Est. Patient 19:30:50 CDT Piotr Daley [facility] CPT-44876 Level 3 Est. Patient 22:06:44 CDT Katrina Rinaldi MD PhD [facility] CPT-14904 Level 3 Est. Patient 14:20:00 CDT Piotr Daley [facility] CPT-22425 Level 3 Est. Patient 14:15:22 BUSINESS ARCHITECT Piotr Daley [facility] CPT-74772 Level 3 Est. Patient 20:19:57 BUSINESS ARCHITECT Piotr Daley [facility] CPT-61979 Level 3 Est. Patient 16:44:32 CDT Piotr Daley [facility] CPT-50240 Level 3 Est. Patient 08:48:46 BUSINESS ARCHITECT Piotr Daley [facility] CPT-48826 Level 3 Est. Patient 21:01:21 CDT Piotr Daley [facility] Procedures Code Procedure Name Date Entry Date Standard Description CPT-63737 BMP - LAB USE ONLY 17:19:11 BUSINESS ARCHITECT CPT-87768 PT/INR - LAB USE ONLY 17:19:10 BUSINESS ARCHITECT CPT-30908 Venipuncture Draw Fee 17:19:10 BUSINESS ARCHITECT CPT-97408 PT/INR - LAB USE ONLY 08:12:25 BUSINESS ARCHITECT CPT-40612 Venipuncture Draw Fee 08:12:24 BUSINESS ARCHITECT CPT-05146 Venipuncture Draw Fee 11:31:07 BUSINESS ARCHITECT CPT-96755 TPSA - LAB USE ONLY 11:31:07 BUSINESS ARCHITECT CPT-57166 PT/INR - LAB USE ONLY 11:31:07 BUSINESS ARCHITECT CPT-G0439 [facility] Annual Wellness Exam 09:59:29 BUSINESS ARCHITECT CPT-66231 Creatinine - LAB USE ONLY 14:37:55 BUSINESS ARCHITECT CPT-69610 PT/INR - LAB USE ONLY 14:37:55 BUSINESS ARCHITECT CPT-50275 Venipuncture Draw Fee 14:37:55 BUSINESS ARCHITECT CPT-47280 LS spine comp w obliques - XRAY USE ONLY 12:59:25 BUSINESS ARCHITECT CPT-93530 PT/INR - LAB USE ONLY 13:49:20 CDT CPT-79241 Venipuncture Draw Fee 13:49:19 CDT CPT-91217 PT/INR - LAB USE ONLY 15:48:49 CDT CPT-72049 Venipuncture Draw Fee 15:48:49 CDT CPT-67281 Venipuncture Draw Fee 11:31:59 CDT CPT-67721 PT/INR - LAB USE ONLY 11:31:59 CDT CPT-62534 Venipuncture Draw Fee 13:29:15 CDT CPT-17050 Thoracolumbar AP/Lat 15:19:19 BUSINESS ARCHITECT CPT-G0438 Initial Annual Wellness Exam 12:18:54 BUSINESS ARCHITECT CPT-53824 Knee 3V 09:57:38 CDT CPT-OV Office Visit 15:45:01 BUSINESS ARCHITECT CPT-78152 Abd compl w upright 17:10:25 CDT
--- OUTSIDE RECORDS SUMMARY | 2018-07-18 09:35 | XMS REPORT | Clinical Summary ---
Author Author Admin, Isidra Organization [employer] Address Unknown Phone Unavailable Allergies, Adverse Reactions, [...] pain, thoracic region, left 724.1 Inactive Piotr Katei Edi DO Pain in thoracic spine Thoracic [...] THROMBOPHLEBITIS, LEG, 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 Inactive Sirisha Chen WELDING MACHINE OPERATOR RESISTANCE DEEP VENOUS THROMBOPHLEBITIS, LEG, 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 Inactive Sirisha Chen WELDING MACHINE OPERATOR RESISTANCE Seborrheic keratosis ICD-702.19 Inactive Sirisha Chen WELDING MACHINE OPERATOR RESISTANCE Bronchitis-Acute ICD-466.0 Inactive Piotr Daley DO Leg pain, right ICD-729.5 Inactive Sirisha Chen WELDING MACHINE OPERATOR RESISTANCE Right leg pain ICD-729.5 Inactive Sirisha Chen WELDING MACHINE OPERATOR RESISTANCE Bronchitis-Acute ICD-466.0 Inactive Sirisha Chen WELDING MACHINE OPERATOR RESISTANCE Knee pain, left ICD-719.46 Inactive Sirisha Chen WELDING MACHINE OPERATOR RESISTANCE Actinic keratoses ICD-702.0 Inactive Sirisha Chen WELDING MACHINE OPERATOR RESISTANCE Back pain, thoracic region, left ICD-724.1 Inactive Piotr Daley DO Thoracic back pain ICD-724.5 Inactive Sirisha Chen WELDING MACHINE OPERATOR RESISTANCE Back pain lumbar ICD-724.2 Inactive Sirisha Chen WELDING MACHINE OPERATOR RESISTANCE Insect bite ICD-919.4 Inactive Sirisha Chen WELDING MACHINE OPERATOR RESISTANCE Pruritus ICD-698.9 Inactive Sirisha Chen WELDING MACHINE OPERATOR RESISTANCE 04/09 Medication List Medication Instructions Start Date Stop Date Generic Name NDC Status Provider Patient Instruction TESSALON PERLES 100 MG ORAL CAPSULE 1-2 tablet by mouth 3 times daily 04/16 BENZONATATE 51916895361 Active Piotr Daley DO Active PREDNISONE 10 MG ORAL TABLET 1 tablet by mouth daily PREDNISONE 72948254175 Active Piotr Daley DO Active PREDNISONE 20 MG ORAL TABLET two tabs by mouth today, then one tab by mouth days two and three PREDNISONE 47229159290 No Longer Active Piotr Daley DO Active CYCLOBENZAPRINE HCL 10 MG ORAL TABLET 1 tablet by mouth three times daily as needed for muscle spasm/pain CYCLOBENZAPRINE HCL 04640307373 Active Piotr Daley DO Active ZITHROMAX 250 MG ORAL TABLET Take two (2 ) tablets day one, then one (1) tablet a day for four (4) more days AZITHROMYCIN 72512169433 No Longer Active Piotr Daley DO Active PROAIR HFA 108 (90 BASE) MCG/ACT INHALATION AEROSOL SOLUTION 1-2 puffs four times a day as needed ALBUTEROL SULFATE 17407963840 No Longer Active Emelyn Norris Active DOXYCYCLINE HYCLATE 100 MG ORAL CAPSULE 1 cap by mouth BID x10 days DOXYCYCLINE HYCLATE 10707695369 No Longer Active Nella Harris APRN Active WARFARIN SODIUM 5 MG ORAL TABLET 1 tablet daily M-S, 1/2 tab on Heart WARFARIN SODIUM 37765310371 Active Piotr Daley DO Active PREDNISONE 20 MG ORAL TABLET 2 tabs daily for 3 days, 1 tab daily for 3 days, 1/2 tab daily for 2 days PREDNISONE 95635646773 No Longer Active Matthew Rangel MD Active TRAMADOL HCL 50 MG ORAL TABLET 1 po tid with ES Tylenol TRAMADOL HCL 31329938587 No Longer Active Matthew Rangel MD Active GABAPENTIN 300 MG ORAL CAPSULE 1 po q hs for nerve pain GABAPENTIN 07726742798 No Longer Active Matthew Rangel MD Active PREDNISONE 20 MG ORAL TABLET 2 tablets today, then 1 tablet days 2 through 4 PREDNISONE 96784571059 No Longer Active Piotr Daley DO Active AZITHROMYCIN 250 MG ORAL TABLET 2 po qd x 1 day, then 1 po qd x 4 days 07/12 AZITHROMYCIN 24360307995 No Longer Active Piotr Daley DO Active IBUPROFEN 800 MG ORAL TABLET 1 tab every 8 hours as needed 07/12 IBUPROFEN 75283169254 No Longer Active Piotr Daley DO Active LOMOTIL 2.5-0.025 MG ORAL TABLET 1 to 2 four times a day as needed for diarrhea DIPHENOXYLATE-ATROPINE 54544596968 No Longer Active Piotr Daley DO Active WARFARIN SODIUM 4 MG ORAL TABLET 1 tab every evening WARFARIN SODIUM 04123888267 No Longer Active Piotr Daley DO Active PREDNISONE 20 MG ORAL TABLET 1 tablet twice daily for 2 days, then 1 tablet once daily for 2 days PREDNISONE 87700616097 No Longer Active Piotr Daley DO Active PROMETHAZINE HCL 25 MG ORAL TABLET 1 four times a day as needed for nausea/ vomiting PROMETHAZINE HCL 93626563353 No Longer Active Piotr Daley DO Active TUSSIONEX PENNKINETIC ER 10-8 MG/5ML ORAL SUSPENSION EXTENDED RELEASE 5ml po q12hr PRN Cough HYDROCOD POLST-CHLORPHEN POLST 27361389400 No Longer Active Piotr Daley DO Active AZITHROMYCIN 250 MG ORAL TABLET 2 po qd x 1 day, then 1 po qd x 4 days 10/13 AZITHROMYCIN 59376954545 No Longer Active Piotr Daley DO Active AZITHROMYCIN 250 MG ORAL TABLET 2 po qd x 1 day, then 1 po qd x 4 days 05/07 AZITHROMYCIN 89834614015 No Longer Active Piotr Daley DO Active LISINOPRIL-HYDROCHLOROTHIAZIDE 10-12.5 MG ORAL TABLET 1 tab by mouth daily LISINOPRIL-HYDROCHLOROTHIAZIDE 36184747973 Active Piotr Daley DO Active LISINOPRIL 10 MG ORAL TABLET 1/2-1 tab po every other day LISINOPRIL 09141967875 No Longer Active Piotr Daley DO Active VENTOLIN HFA 108 (90 Base) MCG/ACT INHALATION AEROSOL SOLUTION 2 puffs four times a day PRN cough ALBUTEROL SULFATE 80299806624 No Longer Active Piotr Daley DO Active NYSTATIN-TRIAMCINOLONE 755280-2.1 UNIT/GM-% EXTERNAL CREAM Apply to area BID NYSTATIN-TRIAMCINOLONE 54285694835 No Longer Active Alena Chavira WELDING MACHINE OPERATOR RESISTANCE Active PHISOHEX 3 % LIQD Use Directed HEXACHLOROPHENE 51895810605 No Longer Active Sandra Salinas Active AZITHROMYCIN 250 MG ORAL TABLET 2 po qd x 1 day, then 1 po qd x 4 days 10/21 AZITHROMYCIN 09192218542 No Longer Active Katrina Rinaldi MD PhD Active AZITHROMYCIN 250 MG ORAL TABLET 2 po qd x 1 day, then 1 po qd x 4 days 10/16 AZITHROMYCIN 88859687784 No Longer Active Piotr Daley DO Active AZITHROMYCIN 500 MG INTRAVENOUS SOLUTION RECONSTITUTED 1 po q day AZITHROMYCIN 21897334989 No Longer Active Piotr Daley DO Active NYSTATIN-TRIAMCINOLONE 625240-8.1 UNIT/GM-% EXTERNAL CREAM apply bid NYSTATIN-TRIAMCINOLONE 81830609848 No Longer Active Piotr Daley DO Active IBUPROFEN 800 MG ORAL TABLET 1 po q 8 hours prn pain sparinly IBUPROFEN 12185236505 No Longer Active Piotr Daley DO Active VITAMIN D3 5000 UNIT ORAL CAPSULE 1 po daily CHOLECALCIFEROL 76713185085 Active Piotr Daley DO Active IBUPROFEN 800 MG ORAL TABLET 1 po q 8 hours prn pain sparinly IBUPROFEN 800 MG ORAL TABLET 075762 IBUPROFEN Inactive NYSTATIN-TRIAMCINOLONE 513805-1.1 UNIT/GM-% EXTERNAL CREAM apply bid NYSTATIN-TRIAMCINOLONE 707789-3.1 UNIT/GM-% EXTERNAL CREAM 5926259 NYSTATIN-TRIAMCINOLONE Inactive AZITHROMYCIN 500 MG INTRAVENOUS SOLUTION RECONSTITUTED 1 po q day AZITHROMYCIN 500 MG INTRAVENOUS SOLUTION RECONSTITUTED 78929747227 AZITHROMYCIN Inactive VENTOLIN HFA 108 (90 Base) MCG/ACT INHALATION AEROSOL SOLUTION 2 puffs four times a day PRN cough VENTOLIN HFA 108 (90 Base) MCG/ ACT INHALATION AEROSOL SOLUTION ALBUTEROL SULFATE Inactive LISINOPRIL 10 MG ORAL TABLET 1/2-1 tab po every other day LISINOPRIL 10 MG ORAL TABLET 368944 LISINOPRIL Inactive TUSSIONEX PENNKINETIC ER 10-8 MG/5ML ORAL SUSPENSION EXTENDED RELEASE 5ml po q12hr PRN Cough TUSSIONEX PENNKINETIC ER 10-8 MG/5ML ORAL SUSPENSION EXTENDED RELEASE HYDROCOD POLST-CHLORPHEN POLST Inactive PROMETHAZINE HCL 25 MG ORAL TABLET 1 four times a day as needed for nausea/ vomiting PROMETHAZINE HCL 25 MG ORAL TABLET 552262 PROMETHAZINE HCL Inactive PREDNISONE 20 MG ORAL TABLET 1 tablet twice daily for 2 days, then 1 tablet once daily for 2 days PREDNISONE 20 MG ORAL TABLET 364221 PREDNISONE Inactive WARFARIN SODIUM 4 MG ORAL TABLET 1 tab every evening WARFARIN SODIUM 4 MG ORAL TABLET 125041 WARFARIN SODIUM Inactive LOMOTIL 2.5-0.025 MG ORAL TABLET 1 to 2 four times a day as needed for diarrhea LOMOTIL 2.5-0.025 MG ORAL TABLET 4960169 DIPHENOXYLATE-ATROPINE Inactive IBUPROFEN 800 MG ORAL TABLET 1 tab every 8 hours as needed 07/12 IBUPROFEN 800 MG ORAL TABLET 590584 IBUPROFEN Inactive PREDNISONE 20 MG ORAL TABLET 2 tablets today, then 1 tablet days 2 through 4 PREDNISONE 20 MG ORAL TABLET 479327 PREDNISONE Inactive GABAPENTIN 300 MG ORAL CAPSULE 1 po q hs for nerve pain GABAPENTIN 300 MG ORAL CAPSULE 209023 GABAPENTIN Inactive TRAMADOL HCL 50 MG ORAL TABLET 1 po tid with ES Tylenol TRAMADOL HCL 50 MG ORAL TABLET 794005 TRAMADOL HCL Inactive PROAIR HFA 108 (90 BASE) MCG/ACT INHALATION AEROSOL SOLUTION 1-2 puffs four times a day as needed PROAIR HFA 108 (90 BASE) MCG/ACT INHALATION AEROSOL SOLUTION ALBUTEROL SULFATE Inactive PREDNISONE 20 MG ORAL TABLET two tabs by mouth today, then one tab by mouth days two and three PREDNISONE 20 MG ORAL TABLET 395821 PREDNISONE Inactive AZITHROMYCIN 250 MG ORAL TABLET 2 po qd x 1 day, then 1 po qd x 4 days 10/16 AZITHROMYCIN 250 MG ORAL TABLET 864567 AZITHROMYCIN Inactive AZITHROMYCIN 250 MG ORAL TABLET 2 po qd x 1 day, then 1 po qd x 4 days 10/21 AZITHROMYCIN 250 MG ORAL TABLET 937844 AZITHROMYCIN Inactive NYSTATIN-TRIAMCINOLONE 511503-5.1 UNIT/GM-% EXTERNAL CREAM Apply to area BID NYSTATIN-TRIAMCINOLONE 761667-0.1 UNIT/GM-% EXTERNAL CREAM 1678974 NYSTATIN-TRIAMCINOLONE Inactive AZITHROMYCIN 250 MG ORAL TABLET 2 po qd x 1 day, then 1 po qd x 4 days 05/07 AZITHROMYCIN 250 MG ORAL TABLET 538255 AZITHROMYCIN Inactive AZITHROMYCIN 250 MG ORAL TABLET 2 po qd x 1 day, then 1 po qd x 4 days 10/13 AZITHROMYCIN 250 MG ORAL TABLET 601843 AZITHROMYCIN Inactive AZITHROMYCIN 250 MG ORAL TABLET 2 po qd x 1 day, then 1 po qd x 4 days 07/12 AZITHROMYCIN 250 MG ORAL TABLET 453500 AZITHROMYCIN Inactive PREDNISONE 20 MG ORAL TABLET 2 tabs daily for 3 days, 1 tab daily for 3 days, 1/2 tab daily for 2 days PREDNISONE 20 MG ORAL TABLET 776764 PREDNISONE Inactive DOXYCYCLINE HYCLATE 100 MG ORAL CAPSULE 1 cap by mouth BID x10 days DOXYCYCLINE HYCLATE 100 MG ORAL CAPSULE 9947089 DOXYCYCLINE HYCLATE Inactive ZITHROMAX 250 MG ORAL TABLET Take two (2 ) tablets day one, then one (1) tablet a day for four (4) more days ZITHROMAX 250 MG ORAL TABLET 166204 AZITHROMYCIN Inactive Advance Directives Directive Description Start [...] Panel - Chemistry sodium, serum 141 mmol/L 576-892 5876/01/24 potassium, serum 4.3 mmol/L 3.5-5.2 chloride, serum [...] % 11.0-15.0 platelet count 172 THOUSAND/UL 10*3/mm3 928-196 4264/04/12 mean platelet volume 8.6 fL 7.5-12.5 Lab Report: Prothrombin Time - Coagulation prothrombin time (patient) 27.8 SECS s 11.1-13.4 international normalized ratio (INR) 4.2 1.0-3.5 Lab Report: Prothrombin Time Hemochron - Coagulation prothrombin time (patient) 33.0 SECS s 18.9-24.9 Encounters Code Encounter Date Provider Facility CPT-71462 Level 3 Est. Patient 12:33:59 RESIDENT CARE AIDE Piotr Daley [facility] CPT-80765 Level 3 Est. Patient 15:56:17 RESIDENT CARE AIDE Piotr Daley [facility] CPT-24919 Level 3 Est. Patient 10:34:54 RESIDENT CARE AIDE Piotr Daley [facility] CPT-84732 Level 3 Est. Patient 17:10:19 [facility] Level 3 Est. Patient 10:48:17 RESIDENT CARE AIDE Matthew Rangel MD [facility] CPT-42567 Level 4 Est. Patient 17:15:07 RESIDENT CARE AIDE Piotr Daley [facility] CPT-98753 Level 3 Est. Patient 12:46:13 RESIDENT CARE AIDE Piotr Daley [facility] CPT-58870 Level 3 Est. Patient 15:14:31 RESIDENT CARE AIDE Piotr Daley [facility] CPT-72271 Level 3 Est. Patient 09:20:13 RESIDENT CARE AIDE Piotr Wilson [facility] CPT-63591 Level 3 Est. Patient 09:49:40 CDT Piotr W Edi [facility] CPT-94160 Level 3 Est. Patient 16:28:11 CDT Piotr Daley [facility] CPT-63654 Level 3 Est. Patient 12:41:58 RESIDENT CARE AIDE Piotr Daley [facility] CPT-51617 Level 3 Est. Patient 09:21:24 CDT Piotr Daley [facility] CPT-83140 Level 3 Est. Patient 09:21:11 CDT Piotr Daley [facility] CPT-48851 Level 3 Est. Patient 11:16:29 RESIDENT CARE AIDE Piotr Daley [facility] CPT-77649 Level 3 Est. Patient 18:40:19 RESIDENT CARE AIDE Piotr Daley [facility] CPT-54703 Level 3 Est. Patient 19:30:50 CDT Piotr Daley [facility] CPT-58711 Level 3 Est. Patient 22:06:44 CDT Katrina Rinaldi MD PhD [facility] CPT-36367 Level 3 Est. Patient 14:20:00 CDT Piotr Daley [facility] CPT-82011 Level 3 Est. Patient 14:15:22 RESIDENT CARE AIDE Piotr Daley [facility] CPT-10913 Level 3 Est. Patient 20:19:57 RESIDENT CARE AIDE Piotr Daley [facility] CPT-36446 Level 3 Est. Patient 16:44:32 CDT Piotr Katie Daley [facility] CPT-18489 Level 3 Est. Patient 08:48:46 RESIDENT CARE AIDE Piotr Daley [facility] CPT-20620 Level 3 Est. Patient 21:01:21 CDT Piotr Katie Edi [facility] Procedures Code Procedure Name Date Entry Date Standard Description CPT-60424 Chest, 2 views 12:55:58 RESIDENT CARE AIDE CPT-G0439 [facility] Subsequent Annual Wellness Exam 10:34:52 RESIDENT CARE AIDE CPT-24688 BMP - LAB USE ONLY 17:19:11 RESIDENT CARE AIDE CPT-03540 PT/INR - LAB USE ONLY 17:19:10 RESIDENT CARE AIDE CPT-96982 Venipuncture Draw Fee 17:19:10 RESIDENT CARE AIDE CPT-60271 PT/INR - LAB USE ONLY 08:12:25 RESIDENT CARE AIDE CPT-35136 Venipuncture Draw Fee 08:12:24 RESIDENT CARE AIDE CPT-94734 Venipuncture Draw Fee 11:31:07 RESIDENT CARE AIDE CPT-29054 TPSA - LAB USE ONLY 11:31:07 [facility] CPT-94544 PT/INR - LAB USE ONLY 11:31:07 [facility] CPT-G0439 Subsequent Annual Wellness Exam 09:59:29 [facility] CPT-97388 Creatinine - LAB USE ONLY 14:37:55 [facility] CPT-87002 PT/INR - LAB USE ONLY 14:37:55 [facility] CPT-00734 Venipuncture Draw Fee 14:37:55 [facility] CPT-49445 LS spine comp w obliques - XRAY USE ONLY 12:59:25 RESIDENT CARE AIDE CPT-52077 PT/INR - LAB USE ONLY 13:49:20 CDT CPT-94879 Venipuncture Draw Fee 13:49:19 CDT CPT-96988 PT/INR - LAB USE ONLY 15:48:49 CDT CPT-61320 Venipuncture Draw Fee 15:48:49 CDT CPT-21081 Venipuncture Draw Fee 11:31:59 CDT CPT-32569 PT/INR - LAB USE ONLY 11:31:59 CDT CPT-55761 Venipuncture Draw Fee 13:29:15 CDT CPT-55193 Thoracolumbar AP/Lat 15:19:19 RESIDENT CARE AIDE CPT-G0438 Initial Annual Wellness Exam 12:18:54 RESIDENT CARE AIDE CPT-30113 Knee 3V 09:57:38 CDT CPT-OV Office Visit 15:45:01 RESIDENT CARE AIDE CPT-70984 Abd compl w upright 17:10:25 CDT
--- OUTSIDE RECORDS SUMMARY | 2018-07-18 09:36 | XMS REPORT | Clinical Summary ---
Author Author Admin, E Organization [id number] Address Unknown Phone Unavailable Allergies, Adverse Reactions, [...] neoplasm of prostate V10.46 Active Alina Meyers PUTTY PATCHER Personal history of malignant neoplasm of prostate Coronary artery disease 414.00 Active Alina Luigi ARISTIDES Coronary atherosclerosis of unspecified type of vessel, chenega or graft Back pain, thoracic region, left 724.1 Inactive Piotr Katie Edi DO Pain in thoracic spine Thoracic back pain 724.5 Active Piotr Wilson Edi DO Backache, unspecified Back pain lumbar 724.2 Active Piotr Katie Edi DO Lumbago Peripheral neuropathy, lower extremity, left 356.9 Active 02/19 Piotr W Edi DO Unspecified hereditary and idiopathic peripheral neuropathy Insect bite 919.4 Active Nella Harris PUTTY PATCHER Insect bite, nonvenomous, of other, multiple, and unspecified sites, without mention of infection Pruritus 698.9 Active Nella Harris PUTTY PATCHER Unspecified pruritic disorder HEALTH MAINTENANCE EXAM ICD-V70.0 Inactive Katrina Rinaldi [...] by mouth BID x10 days DOXYCYCLINE HYCLATE 59964309291 No Longer Active Nella Harris APRN Active WARFARIN SODIUM 5 MG ORAL TABLET 1 tablet daily M-S, 1/2 tab on Heart WARFARIN SODIUM 39913940742 Active Anahy Loja Active PROAIR HFA 108 (90 Base) MCG/ACT INHALATION AEROSOL SOLUTION 1-2 puffs four times a day as needed ALBUTEROL SULFATE 83194896498 Active Matthew Rangel MD Active PREDNISONE 20 MG ORAL TABLET 2 tabs daily for 3 days, 1 tab daily for 3 days, 1/2 tab daily for 2 days PREDNISONE 15705805047 No Longer Active Matthew Rangel MD Active TRAMADOL HCL 50 MG ORAL TABLET 1 po tid with ES Tylenol TRAMADOL HCL 55684863461 No Longer Active Matthew Rangel MD Active GABAPENTIN 300 MG ORAL CAPSULE 1 po q hs for nerve pain GABAPENTIN 15432313593 No Longer Active Matthew Rangel MD Active PREDNISONE 20 MG ORAL TABLET 2 tablets today, then 1 tablet days 2 through 4 PREDNISONE 81881657011 No Longer Active Piotr Dalye DO Active AZITHROMYCIN 250 MG ORAL TABLET 2 po qd x 1 day, then 1 po qd x 4 days 07/12 AZITHROMYCIN 71820596425 No Longer Active Piotr Daley DO Active IBUPROFEN 800 MG ORAL TABLET 1 tab every 8 hours as needed 07/12 IBUPROFEN 70943052492 No Longer Active Piotr Daley DO Active LOMOTIL 2.5-0.025 MG ORAL TABLET 1 to 2 four times a day as needed for diarrhea DIPHENOXYLATE-ATROPINE 37230911088 No Longer Active Piotr Daley DO Active WARFARIN SODIUM 4 MG ORAL TABLET 1 tab every evening WARFARIN SODIUM 34959049195 No Longer Active Piotr Daley DO Active PREDNISONE 20 MG ORAL TABLET 1 tablet twice daily for 2 days, then 1 tablet once daily for 2 days PREDNISONE 03916118127 No Longer Active Piotr Daley DO Active PROMETHAZINE HCL 25 MG ORAL TABLET 1 four times a day as needed for nausea/ vomiting PROMETHAZINE HCL 56515445163 No Longer Active Piotr Daley DO Active TUSSIONEX PENNKINETIC ER 10-8 MG/5ML ORAL SUSPENSION EXTENDED RELEASE 5ml po q12hr PRN Cough HYDROCOD POLST-CHLORPHEN POLST 63530730803 No Longer Active Piotr Daley DO Active AZITHROMYCIN 250 MG ORAL TABLET 2 po qd x 1 day, then 1 po qd x 4 days 10/13 AZITHROMYCIN 33457051514 No Longer Active Piotr Daley DO Active AZITHROMYCIN 250 MG ORAL TABLET 2 po qd x 1 day, then 1 po qd x 4 days 05/07 AZITHROMYCIN 61435393543 No Longer Active Piotr Daley DO Active LISINOPRIL-HYDROCHLOROTHIAZIDE 10-12.5 MG ORAL TABLET 1 tab by mouth daily LISINOPRIL-HYDROCHLOROTHIAZIDE 25450219898 Active Catalina Freitas Active LISINOPRIL 10 MG ORAL TABLET 1/2-1 tab po every other day LISINOPRIL 25906437744 No Longer Active Piotr Daley DO Active VENTOLIN HFA 108 (90 Base) MCG/ACT INHALATION AEROSOL SOLUTION 2 puffs four times a day PRN cough ALBUTEROL SULFATE 01979201570 No Longer Active Piotr Daley DO Active NYSTATIN-TRIAMCINOLONE 257128-4.1 UNIT/GM-% EXTERNAL CREAM Apply to area BID NYSTATIN-TRIAMCINOLONE 35322907179 No Longer Active Alena Chavira LEATHER STAMPER Active PHISOHEX 3 % LIQD Use Directed HEXACHLOROPHENE 52604509582 No Longer Active Sandra [place] Active AZITHROMYCIN 250 MG ORAL TABLET 2 po qd x 1 day, then 1 po qd x 4 days 10/21 AZITHROMYCIN 27976022634 No Longer Active Katrina Rinaldi MD PhD Active AZITHROMYCIN 250 MG ORAL TABLET 2 po qd x 1 day, then 1 po qd x 4 days 10/16 AZITHROMYCIN 69009698966 No Longer Active Piotr Daley DO Active AZITHROMYCIN 500 MG INTRAVENOUS SOLUTION RECONSTITUTED 1 po q day AZITHROMYCIN 47372979459 No Longer Active Piotr Daley DO Active NYSTATIN-TRIAMCINOLONE 404451-9.1 UNIT/GM-% EXTERNAL CREAM apply bid NYSTATIN-TRIAMCINOLONE 90431756427 No Longer Active Piotr Daley DO Active IBUPROFEN 800 MG ORAL TABLET 1 po q 8 hours prn pain sparinly IBUPROFEN 43109116933 No Longer Active Piotr Daley DO Active VITAMIN D3 5000 UNIT ORAL CAPSULE 1 po daily CHOLECALCIFEROL 24973156813 Active Piotr Daley DO Active IBUPROFEN 800 MG ORAL TABLET 1 po q 8 hours prn pain sparinly IBUPROFEN 800 MG ORAL TABLET 547059 IBUPROFEN Inactive NYSTATIN-TRIAMCINOLONE 591962-6.1 UNIT/GM-% EXTERNAL CREAM apply bid NYSTATIN-TRIAMCINOLONE 213916-0.1 UNIT/GM-% EXTERNAL CREAM 3542799 NYSTATIN-TRIAMCINOLONE Inactive AZITHROMYCIN 500 MG INTRAVENOUS SOLUTION RECONSTITUTED 1 po q day AZITHROMYCIN 500 MG INTRAVENOUS SOLUTION RECONSTITUTED 76379497272 AZITHROMYCIN Inactive VENTOLIN HFA 108 (90 Base) MCG/ACT INHALATION AEROSOL SOLUTION 2 puffs four times a day PRN cough VENTOLIN HFA 108 (90 Base) MCG/ ACT INHALATION AEROSOL SOLUTION ALBUTEROL SULFATE Inactive LISINOPRIL 10 MG ORAL TABLET 1/2-1 tab po every other day LISINOPRIL 10 MG ORAL TABLET 430104 LISINOPRIL Inactive TUSSIONEX PENNKINETIC ER 10-8 MG/5ML ORAL SUSPENSION EXTENDED RELEASE 5ml po q12hr PRN Cough TUSSIONEX PENNKINETIC ER 10-8 MG/5ML ORAL SUSPENSION EXTENDED RELEASE HYDROCOD POLST-CHLORPHEN POLST Inactive PROMETHAZINE HCL 25 MG ORAL TABLET 1 four times a day as needed for nausea/ vomiting PROMETHAZINE HCL 25 MG ORAL TABLET 172219 PROMETHAZINE HCL Inactive PREDNISONE 20 MG ORAL TABLET 1 tablet twice daily for 2 days, then 1 tablet once daily for 2 days PREDNISONE 20 MG ORAL TABLET 024035 PREDNISONE Inactive WARFARIN SODIUM 4 MG ORAL TABLET 1 tab every evening WARFARIN SODIUM 4 MG ORAL TABLET 376736 WARFARIN SODIUM Inactive LOMOTIL 2.5-0.025 MG ORAL TABLET 1 to 2 four times a day as needed for diarrhea LOMOTIL 2.5-0.025 MG ORAL TABLET 5891972 DIPHENOXYLATE-ATROPINE Inactive IBUPROFEN 800 MG ORAL TABLET 1 tab every 8 hours as needed 07/12 IBUPROFEN 800 MG ORAL TABLET 642007 IBUPROFEN Inactive PREDNISONE 20 MG ORAL TABLET 2 tablets today, then 1 tablet days 2 through 4 PREDNISONE 20 MG ORAL TABLET 089917 PREDNISONE Inactive GABAPENTIN 300 MG ORAL CAPSULE 1 po q hs for nerve pain GABAPENTIN 300 MG ORAL CAPSULE 893422 GABAPENTIN Inactive TRAMADOL HCL 50 MG ORAL TABLET 1 po tid with ES Tylenol TRAMADOL HCL 50 MG ORAL TABLET 468504 TRAMADOL HCL Inactive AZITHROMYCIN 250 MG ORAL TABLET 2 po qd x 1 day, then 1 po qd x 4 days 10/16 AZITHROMYCIN 250 MG ORAL TABLET 159268 AZITHROMYCIN Inactive AZITHROMYCIN 250 MG ORAL TABLET 2 po qd x 1 day, then 1 po qd x 4 days 10/21 AZITHROMYCIN 250 MG ORAL TABLET 075968 AZITHROMYCIN Inactive NYSTATIN-TRIAMCINOLONE 454386-2.1 UNIT/GM-% EXTERNAL CREAM Apply to area BID NYSTATIN-TRIAMCINOLONE 433706-0.1 UNIT/GM-% EXTERNAL CREAM 0008895 NYSTATIN-TRIAMCINOLONE Inactive AZITHROMYCIN 250 MG ORAL TABLET 2 po qd x 1 day, then 1 po qd x 4 days 05/07 AZITHROMYCIN 250 MG ORAL TABLET 472149 AZITHROMYCIN Inactive AZITHROMYCIN 250 MG ORAL TABLET 2 po qd x 1 day, then 1 po qd x 4 days 10/13 AZITHROMYCIN 250 MG ORAL TABLET 676705 AZITHROMYCIN Inactive AZITHROMYCIN 250 MG ORAL TABLET 2 po qd x 1 day, then 1 po qd x 4 days 07/12 AZITHROMYCIN 250 MG ORAL TABLET 930348 AZITHROMYCIN Inactive PREDNISONE 20 MG ORAL TABLET 2 tabs daily for 3 days, 1 tab daily for 3 days, 1/2 tab daily for 2 days PREDNISONE 20 MG ORAL TABLET 484577 PREDNISONE Inactive DOXYCYCLINE HYCLATE 100 MG ORAL CAPSULE 1 cap by mouth BID x10 days DOXYCYCLINE HYCLATE 100 MG ORAL CAPSULE 0875544 DOXYCYCLINE HYCLATE Inactive Advance Directives Directive Description [...] blood 5.4 THOUSAND/UL 10*3/mm3 3.8-10.8 mean corpuscular volume, RBC 83.9 fL 80.0-100.0 mean corpuscular hemoglobin, RBC 28.1 pg 27.0-33.0 mean corpuscular hemoglobin concentration, RBC 33.5 G/DL % 32.0- 36.0 red blood cell distribution width 14.0 % 11.0-15.0 platelet count 172 THOUSAND/UL 10*3/mm3 109-174 7191/04/12 mean platelet volume 8.6 fL 7.5-12.5 erythrocyte (RBC) count 5.13 MILLION/UL 10*6/mm3 4.20-5.80 hemoglobin, blood 14.4 g/dL 13.2-17.1 hematocrit, blood 43.0 % 38.5-50.0 Lab Report: Prostatic Specific Ag, Prothrombin Time [...] 18.9-24.9 Encounters Code Encounter Date Provider Facility CPT-11878 Level 3 Est. Patient 17:10:19 CDT Nella Harris APRN [facility] CPT-83251 Level 3 Est. Patient 10:48:17 SAMPLE COLLECTOR Matthew Rangel MD [facility] CPT-86721 Level 4 Est. Patient 17:15:07 SAMPLE COLLECTOR Piotr Daley [facility] CPT-92830 Level 3 Est. Patient 12:46:13 SAMPLE COLLECTOR Piotr Daley [facility] CPT-18645 Level 3 Est. Patient 15:14:31 SAMPLE COLLECTOR Piotr Daley [facility] CPT-71696 Level 3 Est. Patient 09:20:13 SAMPLE COLLECTOR Piotr Daley [facility] CPT-42869 Level 3 Est. Patient 09:49:40 CDT Piotr Wilson [facility] CPT-62319 Level 3 Est. Patient 16:28:11 CDT Piotr Daley [facility] CPT-78844 Level 3 Est. Patient 12:41:58 SAMPLE COLLECTOR Piotr Daley [facility] CPT-79288 Level 3 Est. Patient 09:21:24 CDT Piotr Daley [facility] CPT-12274 Level 3 Est. Patient 09:21:11 CDT Piotr Daley [facility] CPT-43069 Level 3 Est. Patient 11:16:29 SAMPLE COLLECTOR Piotr Daley [facility] CPT-68694 Level 3 Est. Patient 18:40:19 SAMPLE COLLECTOR Piotr Daley [facility] CPT-70115 Level 3 Est. Patient 19:30:50 CDT Piotr Daley [facility] CPT-94828 Level 3 Est. Patient 22:06:44 CDT Katrina Rinaldi MD PhD [facility] CPT-62136 Level 3 Est. Patient 14:20:00 CDT Piotr Daley [facility] CPT-11273 Level 3 Est. Patient 14:15:22 SAMPLE COLLECTOR Piotr Daley [facility] CPT-97218 Level 3 Est. Patient 20:19:57 SAMPLE COLLECTOR Piotr Daley [facility] CPT-49817 Level 3 Est. Patient 16:44:32 CDT Piotr Katie Daley [facility] CPT-99168 Level 3 Est. Patient 08:48:46 SAMPLE COLLECTOR Piotr Daley [facility] CPT-64884 Level 3 Est. Patient 21:01:21 CDT Piotr Daley [facility] Procedures Code Procedure Name Date Entry Date Standard Description CPT-70813 BMP - LAB USE ONLY 17:19:11 SAMPLE COLLECTOR CPT-52009 PT/INR - LAB USE ONLY 17:19:10 SAMPLE COLLECTOR CPT-61478 Venipuncture Draw Fee 17:19:10 SAMPLE COLLECTOR CPT-41028 PT/INR - LAB USE ONLY 08:12:25 SAMPLE COLLECTOR CPT-91508 Venipuncture Draw Fee 08:12:24 SAMPLE COLLECTOR CPT-24375 Venipuncture Draw Fee 11:31:07 SAMPLE COLLECTOR CPT-12755 TPSA - LAB USE ONLY 11:31:07 SAMPLE COLLECTOR CPT-64275 PT/INR - LAB USE ONLY 11:31:07 SAMPLE COLLECTOR CPT-G0439 [facility] Annual Wellness Exam 09:59:29 SAMPLE COLLECTOR CPT-95583 Creatinine - LAB USE ONLY 14:37:55 SAMPLE COLLECTOR CPT-60920 PT/INR - LAB USE ONLY 14:37:55 SAMPLE COLLECTOR CPT-63638 Venipuncture Draw Fee 14:37:55 SAMPLE COLLECTOR CPT-18933 LS spine comp w obliques - XRAY USE ONLY 12:59:25 SAMPLE COLLECTOR CPT-23153 PT/INR - LAB USE ONLY 13:49:20 CDT CPT-75087 Venipuncture Draw Fee 13:49:19 CDT CPT-72921 PT/INR - LAB USE ONLY 15:48:49 CDT CPT-23247 Venipuncture Draw Fee 15:48:49 CDT CPT-49449 Venipuncture Draw Fee 11:31:59 CDT CPT-38409 PT/INR - LAB USE ONLY 11:31:59 CDT CPT-44942 Venipuncture Draw Fee 13:29:15 CDT CPT-49079 Thoracolumbar AP/Lat 15:19:19 SAMPLE COLLECTOR CPT-G0438 Initial Annual Wellness Exam 12:18:54 SAMPLE COLLECTOR CPT-42003 Knee 3V 09:57:38 CDT CPT-OV Office Visit 15:45:01 SAMPLE COLLECTOR CPT-10704 Abd compl w upright 17:10:25 CDT
--- OUTSIDE RECORDS SUMMARY | 2018-07-18 09:37 | XMS REPORT | Clinical Summary ---
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 Inactive Siirsha Gustavo LOO Seborrheic keratosis ICD-702.19 Inactive Sirisha Gustavo LOO Bronchitis-Acute ICD-466.0 Inactive Piotr Daley DO Leg pain, right ICD-729.5 Inactive Sirisha Gustavo LOO Right leg pain ICD-729.5 Inactive Sirisha Gustavo LOO Bronchitis-Acute ICD-466.0 Inactive Sirisha Gustavo LOO Knee pain, left ICD-719.46 Inactive Sirisha Chen CROP ADJUSTER Actinic keratoses ICD-702.0 Inactive Sirisha Chen CROP ADJUSTER Back pain, thoracic region, left ICD-724.1 Inactive Piotr Daley DO Thoracic back pain ICD-724.5 Inactive Sirisha Chen CROP ADJUSTER Back pain lumbar ICD-724.2 Inactive Sirisha Chen CROP ADJUSTER Insect bite ICD-919.4 Inactive Sirisha Chen CROP ADJUSTER Pruritus ICD-698.9 Inactive Sirisha Chen CROP ADJUSTER 04/09 Bronchitis-Acute ICD-466.0 Inactive Sirisha Chen CROP ADJUSTER Dyspnea ICD-786.09 Inactive Sirisha Chen CROP ADJUSTER 05/09 Medication List Medication Instructions Start Date Stop Date Generic Name NDC Status Provider Patient Instruction WARFARIN SODIUM 4 MG ORAL TABLET 1 tablet by mouth daily WARFARIN SODIUM 04664978718 Active Anahy Loja Active MELOXICAM 15 MG ORAL TABLET 1 po q day for pain with food MELOXICAM 95455859009 Active Piotr Daley DO Active PREDNISONE 10 MG ORAL TABLET 1 tablet by mouth daily PREDNISONE 85986117301 No Longer Active Emelyn Norris Active TESSALON PERLES 100 MG ORAL CAPSULE 1-2 tablet by mouth 3 times daily 04/16 BENZONATATE 53327569702 No Longer Active Emelyn Norris Active PREDNISONE 20 MG ORAL TABLET two tabs by mouth today, then one tab by mouth days two and three PREDNISONE 90208694751 No Longer Active Piotr Daley DO Active CYCLOBENZAPRINE HCL 10 MG ORAL TABLET 1 tablet by mouth three times daily as needed for muscle spasm/pain CYCLOBENZAPRINE HCL 16823470666 Active Sirisha Gustavo CROP ADJUSTER Active ZITHROMAX 250 MG ORAL TABLET Take two (2 ) tablets day one, then one (1) tablet a day for four (4) more days AZITHROMYCIN 11774455732 No Longer Active Piotr Daley DO Active PROAIR HFA 108 (90 BASE) MCG/ACT INHALATION AEROSOL SOLUTION 1-2 puffs four times a day as needed ALBUTEROL SULFATE 26532658365 No Longer Active Emelyn Norris Active DOXYCYCLINE HYCLATE 100 MG ORAL CAPSULE 1 cap by mouth BID x10 days DOXYCYCLINE HYCLATE 85111319504 No Longer Active Nella Harris APRN Active PREDNISONE 20 MG ORAL TABLET 2 tabs daily for 3 days, 1 tab daily for 3 days, 1/2 tab daily for 2 days PREDNISONE 29559024763 No Longer Active Matthew Rangel MD Active TRAMADOL HCL 50 MG ORAL TABLET 1 po tid with ES Tylenol TRAMADOL HCL 41889937757 No Longer Active Matthew Rangel MD Active GABAPENTIN 300 MG ORAL CAPSULE 1 po q hs for nerve pain GABAPENTIN 36555810730 No Longer Active Matthew Rangel MD Active PREDNISONE 20 MG ORAL TABLET 2 tablets today, then 1 tablet days 2 through 4 PREDNISONE 03878675426 No Longer Active Piotr Daley DO Active AZITHROMYCIN 250 MG ORAL TABLET 2 po qd x 1 day, then 1 po qd x 4 days 07/12 AZITHROMYCIN 46149233833 No Longer Active Piotr Daley DO Active IBUPROFEN 800 MG ORAL TABLET 1 tab every 8 hours as needed 07/12 IBUPROFEN 89185881986 No Longer Active Piotr Daley DO Active LOMOTIL 2.5-0.025 MG ORAL TABLET 1 to 2 four times a day as needed for diarrhea DIPHENOXYLATE-ATROPINE 00883692668 No Longer Active Piotr W Edi DO Active WARFARIN SODIUM 4 MG ORAL TABLET 1 tab every evening WARFARIN SODIUM 08361012493 No Longer Active Piotr Daley DO Active PREDNISONE 20 MG ORAL TABLET 1 tablet twice daily for 2 days, then 1 tablet once daily for 2 days PREDNISONE 69590043550 No Longer Active Piotr Daley DO Active PROMETHAZINE HCL 25 MG ORAL TABLET 1 four times a day as needed for nausea/ vomiting PROMETHAZINE HCL 25502855893 No Longer Active Piotr Daley DO Active TUSSIONEX PENNKINETIC ER 10-8 MG/5ML ORAL SUSPENSION EXTENDED RELEASE 5ml po q12hr PRN Cough HYDROCOD POLST-CHLORPHEN POLST 53251744665 No Longer Active Piotr Daley DO Active AZITHROMYCIN 250 MG ORAL TABLET 2 po qd x 1 day, then 1 po qd x 4 days 10/13 AZITHROMYCIN 80199037201 No Longer Active Piotr Daley DO Active AZITHROMYCIN 250 MG ORAL TABLET 2 po qd x 1 day, then 1 po qd x 4 days 05/07 AZITHROMYCIN 24392420758 No Longer Active Piotr Daley DO Active LISINOPRIL-HYDROCHLOROTHIAZIDE 10-12.5 MG ORAL TABLET 1 tab by mouth daily LISINOPRIL-HYDROCHLOROTHIAZIDE 37079426123 Active Piotr Daley DO Active LISINOPRIL 10 MG ORAL TABLET 1/2-1 tab po every other day LISINOPRIL 13867812103 No Longer Active Piotr Daley DO Active VENTOLIN HFA 108 (90 Base) MCG/ACT INHALATION AEROSOL SOLUTION 2 puffs four times a day PRN cough ALBUTEROL SULFATE 64154702689 No Longer Active Piotr Daley DO Active NYSTATIN-TRIAMCINOLONE 934807-9.1 UNIT/GM-% EXTERNAL CREAM Apply to area BID NYSTATIN-TRIAMCINOLONE 20750102998 No Longer Active Alena Chavira CROP ADJUSTER Active PHISOHEX 3 % LIQD Use Directed HEXACHLOROPHENE 81277571042 No Longer Active Sandra Leeton Active AZITHROMYCIN 250 MG ORAL TABLET 2 po qd x 1 day, then 1 po qd x 4 days 10/21 AZITHROMYCIN 31188928096 No Longer Active Katrina Rinaldi MD PhD Active AZITHROMYCIN 250 MG ORAL TABLET 2 po qd x 1 day, then 1 po qd x 4 days 10/16 AZITHROMYCIN 30748936230 No Longer Active Piotr Daley DO Active AZITHROMYCIN 500 MG INTRAVENOUS SOLUTION RECONSTITUTED 1 po q day AZITHROMYCIN 55900080597 No Longer Active Piotr Daley DO Active NYSTATIN-TRIAMCINOLONE 150906-0.1 UNIT/GM-% EXTERNAL CREAM apply bid NYSTATIN-TRIAMCINOLONE 54491441073 No Longer Active Piotr Daley DO Active IBUPROFEN 800 MG ORAL TABLET 1 po q 8 hours prn pain sparinly IBUPROFEN 39574261721 No Longer Active Piotr Daley DO Active VITAMIN D3 5000 UNIT ORAL CAPSULE 1 po daily CHOLECALCIFEROL 94498087355 Active Piotr Daley DO Active IBUPROFEN 800 MG ORAL TABLET 1 po q 8 hours prn pain sparinly IBUPROFEN 800 MG ORAL TABLET 319483 IBUPROFEN Inactive NYSTATIN-TRIAMCINOLONE 874857-3.1 UNIT/GM-% EXTERNAL CREAM apply bid NYSTATIN-TRIAMCINOLONE 188915-8.1 UNIT/GM-% EXTERNAL CREAM 2366789 NYSTATIN-TRIAMCINOLONE Inactive AZITHROMYCIN 500 MG INTRAVENOUS SOLUTION RECONSTITUTED 1 po q day AZITHROMYCIN 500 MG INTRAVENOUS SOLUTION RECONSTITUTED 15795159217 AZITHROMYCIN Inactive VENTOLIN HFA 108 (90 Base) MCG/ACT INHALATION AEROSOL SOLUTION 2 puffs four times a day PRN cough VENTOLIN HFA 108 (90 Base) MCG/ ACT INHALATION AEROSOL SOLUTION ALBUTEROL SULFATE Inactive LISINOPRIL 10 MG ORAL TABLET 1/2-1 tab po every other day LISINOPRIL 10 MG ORAL TABLET 776263 LISINOPRIL Inactive TUSSIONEX PENNKINETIC ER 10-8 MG/5ML ORAL SUSPENSION EXTENDED RELEASE 5ml po q12hr PRN Cough TUSSIONEX PENNKINETIC ER 10-8 MG/5ML ORAL SUSPENSION EXTENDED RELEASE HYDROCOD POLST-CHLORPHEN POLST Inactive PROMETHAZINE HCL 25 MG ORAL TABLET 1 four times a day as needed for nausea/ vomiting PROMETHAZINE HCL 25 MG ORAL TABLET 016258 PROMETHAZINE HCL Inactive PREDNISONE 20 MG ORAL TABLET 1 tablet twice daily for 2 days, then 1 tablet once daily for 2 days PREDNISONE 20 MG ORAL TABLET 131661 PREDNISONE Inactive WARFARIN SODIUM 4 MG ORAL TABLET 1 tab every evening WARFARIN SODIUM 4 MG ORAL TABLET 330893 WARFARIN SODIUM Inactive LOMOTIL 2.5-0.025 MG ORAL TABLET 1 to 2 four times a day as needed for diarrhea LOMOTIL 2.5-0.025 MG ORAL TABLET 6855961 DIPHENOXYLATE-ATROPINE Inactive IBUPROFEN 800 MG ORAL TABLET 1 tab every 8 hours as needed 07/12 IBUPROFEN 800 MG ORAL TABLET 311188 IBUPROFEN Inactive PREDNISONE 20 MG ORAL TABLET 2 tablets today, then 1 tablet days 2 through 4 PREDNISONE 20 MG ORAL TABLET 191826 PREDNISONE Inactive GABAPENTIN 300 MG ORAL CAPSULE 1 po q hs for nerve pain GABAPENTIN 300 MG ORAL CAPSULE 334640 GABAPENTIN Inactive TRAMADOL HCL 50 MG ORAL TABLET 1 po tid with ES Tylenol TRAMADOL HCL 50 MG ORAL TABLET 065815 TRAMADOL HCL Inactive PROAIR HFA 108 (90 BASE) MCG/ACT INHALATION AEROSOL SOLUTION 1-2 puffs four times a day as needed PROAIR HFA 108 (90 BASE) MCG/ACT INHALATION AEROSOL SOLUTION ALBUTEROL SULFATE Inactive PREDNISONE 20 MG ORAL TABLET two tabs by mouth today, then one tab by mouth days two and three PREDNISONE 20 MG ORAL TABLET 639958 PREDNISONE Inactive TESSALON PERLES 100 MG ORAL CAPSULE 1-2 tablet by mouth 3 times daily 04/16 TESSALON PERLES 100 MG ORAL CAPSULE 085794 BENZONATATE Inactive PREDNISONE 10 MG ORAL TABLET 1 tablet by mouth daily PREDNISONE 10 MG ORAL TABLET 671255 PREDNISONE Inactive AZITHROMYCIN 250 MG ORAL TABLET 2 po qd x 1 day, then 1 po qd x 4 days 10/16 AZITHROMYCIN 250 MG ORAL TABLET 654293 AZITHROMYCIN Inactive AZITHROMYCIN 250 MG ORAL TABLET 2 po qd x 1 day, then 1 po qd x 4 days 10/21 AZITHROMYCIN 250 MG ORAL TABLET 542725 AZITHROMYCIN Inactive NYSTATIN-TRIAMCINOLONE 329859-3.1 UNIT/GM-% EXTERNAL CREAM Apply to area BID NYSTATIN-TRIAMCINOLONE 882663-6.1 UNIT/GM-% EXTERNAL CREAM 1979381 NYSTATIN-TRIAMCINOLONE Inactive AZITHROMYCIN 250 MG ORAL TABLET 2 po qd x 1 day, then 1 po qd x 4 days 05/07 AZITHROMYCIN 250 MG ORAL TABLET 745780 AZITHROMYCIN Inactive AZITHROMYCIN 250 MG ORAL TABLET 2 po qd x 1 day, then 1 po qd x 4 days 10/13 AZITHROMYCIN 250 MG ORAL TABLET 884443 AZITHROMYCIN Inactive AZITHROMYCIN 250 MG ORAL TABLET 2 po qd x 1 day, then 1 po qd x 4 days 07/12 AZITHROMYCIN 250 MG ORAL TABLET 402994 AZITHROMYCIN Inactive PREDNISONE 20 MG ORAL TABLET 2 tabs daily for 3 days, 1 tab daily for 3 days, 1/2 tab daily for 2 days PREDNISONE 20 MG ORAL TABLET 406884 PREDNISONE Inactive DOXYCYCLINE HYCLATE 100 MG ORAL CAPSULE 1 cap by mouth BID x10 days DOXYCYCLINE HYCLATE 100 MG ORAL CAPSULE 3063652 DOXYCYCLINE HYCLATE Inactive ZITHROMAX 250 MG ORAL TABLET Take two (2 ) tablets day one, then one (1) tablet a day for four (4) more days ZITHROMAX 250 MG ORAL TABLET 784326 AZITHROMYCIN Inactive Advance Directives Directive Description Start [...] 18.9-24.9 Encounters Code Encounter Date Provider Facility CPT-06113 Level 3 Est. Patient 15:59:25 [employer] MAINTENANCE SPECIALIST Piotr Daley [facility] CPT-67241 Level 3 Est. Patient 12:33:59 [employer]AR[employer] MAINTENANCE SPECIALIST Piotr Daley [facility] CPT-68541 Level 3 Est. Patient 15:56:17 [employer] MAINTENANCE SPECIALIST Piotr Daley [facility] CPT-66889 Level 3 Est. Patient 10:34:54 [employer] MAINTENANCE SPECIALIST Piotr Daley [facility] CPT-75683 Level 3 Est. Patient 17:10:19 CDT Nella Harris APRN [facility] CPT-88399 Level 3 Est. Patient 10:48:17 [employer] MAINTENANCE SPECIALIST Matthew Rangel MD [facility] CPT-81796 Level 4 Est. Patient 17:15:07 [employer] MAINTENANCE SPECIALIST Piotr Daley [facility] CPT-89703 Level 3 Est. Patient 12:46:13 [employer] MAINTENANCE SPECIALIST Piotr Daley [facility] CPT-86971 Level 3 Est. Patient 15:14:31 [employer] MAINTENANCE SPECIALIST Piotr Daley [facility] CPT-88002 Level 3 Est. Patient 09:20:13 [employer] MAINTENANCE SPECIALIST Piotr Katie Edi [facility] CPT-31707 Level 3 Est. Patient 09:49:40 CDT Piotr Wilson [facility] CPT-61155 Level 3 Est. Patient 16:28:11 CDT Piotr Katie Daley [facility] CPT-26305 Level 3 Est. Patient 12:41:58 [employer] MAINTENANCE SPECIALIST Piotr Katie Edi [facility] CPT-64548 Level 3 Est. Patient 09:21:24 CDT Piotr Wilson [facility] CPT-25164 Level 3 Est. Patient 09:21:11 CDT Piotr Wilson [facility] CPT-28975 Level 3 Est. Patient 11:16:29 [employer] MAINTENANCE SPECIALIST Piotr Daley [facility] CPT-47087 Level 3 Est. Patient 18:40:19 [employer] MAINTENANCE SPECIALIST Piotr Daley [facility] CPT-54893 Level 3 Est. Patient 19:30:50 CDT Piotr Daley [facility] CPT-26605 Level 3 Est. Patient 22:06:44 CDT Katrina Rinaldi MD [facility] CPT-52059 Level 3 Est. Patient 14:20:00 CDT Piotr Daley [facility] CPT-70874 Level 3 Est. Patient 14:15:22 [employer] MAINTENANCE SPECIALIST Piotr Daley [facility] CPT-61943 Level 3 Est. Patient 20:19:57 [employer] MAINTENANCE SPECIALIST Piotr Daley [facility] CPT-74322 Level 3 Est. Patient 16:44:32 CDT Piotr Daley [facility] CPT-12119 Level 3 Est. Patient 08:48:46 [employer] MAINTENANCE SPECIALIST Piotr Daley [facility] CPT-30513 Level 3 Est. Patient 21:01:21 CDT Piotr Wilson [facility] Procedures Code Procedure Name Date Entry Date Standard Description CPT-48166 Sacroiliac jt < 3V - XRAY USE ONLY 16:45:19 [employer] MAINTENANCE SPECIALIST 05/09 CPT-23406 LS spine comp w obliques - XRAY USE ONLY 14:52:26 [employer] MAINTENANCE SPECIALIST CPT-26363 Chest, 2 views 12:55:58 [employer] MAINTENANCE SPECIALIST CPT-G0439 [facility] Annual Wellness Exam 10:34:52 [employer] MAINTENANCE SPECIALIST CPT-28806 BMP - LAB USE ONLY 17:19:11 [employer] MAINTENANCE SPECIALIST CPT-73862 PT/INR - LAB USE ONLY 17:19:10 [employer] MAINTENANCE SPECIALIST CPT-33484 Venipuncture Draw Fee 17:19:10 [employer] MAINTENANCE SPECIALIST CPT-03939 PT/INR - LAB USE ONLY 08:12:25 [employer] MAINTENANCE SPECIALIST CPT-78645 Venipuncture Draw Fee 08:12:24 [employer] MAINTENANCE SPECIALIST CPT-54045 Venipuncture Draw Fee 11:31:07 [employer] MAINTENANCE SPECIALIST CPT-34149 [facility]PSA - LAB USE ONLY 11:31:07 [facility] CPT-37962 PT/INR - LAB USE ONLY 11:31:07 [employer] MAINTENANCE SPECIALIST CPT-G0439 Subsequent Annual Wellness Exam 09:59:29 [employer] MAINTENANCE SPECIALIST CPT-90792 Creatinine - LAB USE ONLY 14:37:55 [employer] MAINTENANCE SPECIALIST CPT-18828 PT/INR - LAB USE ONLY 14:37:55 [facility] CPT-81933 Venipuncture Draw Fee 14:37:55 [facility] CPT-19691 LS spine comp w obliques - XRAY USE ONLY 12:59:25 [facility] CPT-25863 PT/INR - LAB USE ONLY 13:49:20 CDT CPT-12602 Venipuncture Draw Fee 13:49:19 CDT CPT-70603 PT/INR - LAB USE ONLY 15:48:49 CDT CPT-67921 Venipuncture Draw Fee 15:48:49 CDT CPT-81281 Venipuncture Draw Fee 11:31:59 CDT CPT-81872 PT/INR - LAB USE ONLY 11:31:59 CDT CPT-71256 Venipuncture Draw Fee 13:29:15 CDT CPT-05265 Thoracolumbar AP/Lat 15:19:19 [facility] CPT-G0438 Initial Annual Wellness Exam 12:18:54 [employer] MAINTENANCE SPECIALIST CPT-75716 Knee 3V 09:57:38 CDT CPT-OV Office Visit 15:45:01 [employer] MAINTENANCE SPECIALIST CPT-36782 Abd compl w upright 17:10:25 CDT
--- OUTSIDE RECORDS SUMMARY | 2018-07-18 09:38 | XMS REPORT | Clinical Summary ---
Author Author Admin, Isidra Organization [employer] Address Unknown Phone Unavailable Allergies, Adverse Reactions, [...] Coronary atherosclerosis of unspecified type of vessel, nisqually or graft Back pain, thoracic region, left 724.1 Inactive Piotr Katie Edi DO Pain in thoracic spine Thoracic back pain 724.5 Active Piotr Katie Edi DO Backache, unspecified Back pain lumbar 724.2 Active Piotr Katie Edi DO Lumbago Peripheral neuropathy, lower extremity, left 356.9 Active 02/19 Piotr Katie Edi DO Unspecified hereditary and idiopathic peripheral neuropathy HEALTH MAINTENANCE EXAM ICD-V70.0 Inactive Katrina Rinaldi [...] times a day as needed ALBUTEROL SULFATE 32172602741 Active Matthew Rangel MD Active PREDNISONE 20 MG TAB 2 tabs daily for 3 days, 1 tab daily for 3 days, 1/2 tab daily for 2 days PREDNISONE 80417666167 No Longer Active Matthew Rangel MD Active TRAMADOL HCL 50 MG TABS 1 po tid with ES Tylenol TRAMADOL HCL 35973803535 No Longer Active Matthew Rangel MD Active GABAPENTIN 300 MG CAPS 1 po q hs for nerve pain GABAPENTIN 79979303683 No Longer Active Matthew Rangel MD Active WARFARIN SODIUM 5 MG TABS 1 tablet daily WARFARIN SODIUM 91341815680 Active Piotr Daley DO Active PREDNISONE 20 MG TAB 2 tablets today, then 1 tablet days 2 through 4 PREDNISONE 13320650788 No Longer Active Piotr Daley DO Active AZITHROMYCIN 250 MG TABS 2 po qd x 1 day, then 1 po qd x 4 days AZITHROMYCIN 21006108167 No Longer Active Piotr Daley DO Active IBUPROFEN 800 MG TABS 1 tab every 8 hours as needed IBUPROFEN 20027950249 No Longer Active Piotr Daley DO Active LOMOTIL 2.5-0.025 MG TAB 1 to 2 four times a day as needed for diarrhea 10/13 DIPHENOXYLATE-ATROPINE 02806806055 No Longer Active Piotr Dlaey DO Active WARFARIN SODIUM 4 MG TABS 1 tab every evening WARFARIN SODIUM 59000251827 No Longer Active Piotr Daley DO Active PREDNISONE 20 MG TAB 1 tablet twice daily for 2 days, then 1 tablet once daily for 2 days PREDNISONE 30579855317 No Longer Active Piotr Daley DO Active PROMETHAZINE HCL 25 MG TABS 1 four times a day as needed for nausea/vomiting PROMETHAZINE HCL 87098846904 No Longer Active Piotr Daley DO Active TUSSIONEX PENNKINETIC ER 10-8 MG/5ML LQCR 5ml po q12hr PRN Cough HYDROCOD POLST-CHLORPHEN POLST 08039749450 No Longer Active Piotr Daley DO Active AZITHROMYCIN 250 MG TABS 2 po qd x 1 day, then 1 po qd x 4 days AZITHROMYCIN 57817831274 No Longer Active Piotr Daley DO Active AZITHROMYCIN 250 MG TABS 2 po qd x 1 day, then 1 po qd x 4 days AZITHROMYCIN 78286958788 No Longer Active Piotr Daley DO Active LISINOPRIL-HYDROCHLOROTHIAZIDE 10-12.5 MG TABS 1 tab by mouth daily LISINOPRIL-HYDROCHLOROTHIAZIDE 79411142060 Active Simi Meyers Active LISINOPRIL 10 MG TABS 1/2-1 tab po every other day LISINOPRIL 27513341344 No Longer Active Piotr Daley DO Active VENTOLIN HFA 108 (90 BASE) MCG/ACT AERS 2 puffs four times a day PRN cough ALBUTEROL SULFATE 54116450717 No Longer Active Piotr Daley DO Active NYSTATIN-TRIAMCINOLONE 313156-8.1 UNIT/GM-% CREA Apply to area BID NYSTATIN-TRIAMCINOLONE 49574793029 No Longer Active Alena Chavira LATHE SCALPER OPERATOR Active PHISOHEX 3 % LIQD Use Directed HEXACHLOROPHENE 92095223465 No Longer Active Sandra Dentarger Active AZITHROMYCIN 250 MG TABS 2 po qd x 1 day, then 1 po qd x 4 days AZITHROMYCIN 76338579409 No Longer Active Katrina Rinaldi MD PhD Active AZITHROMYCIN 250 MG TABS 2 po qd x 1 day, then 1 po qd x 4 days AZITHROMYCIN 10033344411 No Longer Active Piotr Daley DO Active AZITHROMYCIN 500 MG SOLR 1 po q day AZITHROMYCIN 90083831155 No Longer Active Piotr Daley DO Active NYSTATIN-TRIAMCINOLONE 999528-5.1 UNIT/GM-% CREA apply bid 08/19 NYSTATIN-TRIAMCINOLONE 51399718712 No Longer Active Piotr Daley DO Active IBUPROFEN 800 MG TABS 1 po q 8 hours prn pain sparinly IBUPROFEN 00145138758 No Longer Active Piotr Daley DO Active VITAMIN D3 5000 UNIT CAPS 1 po daily CHOLECALCIFEROL 23952440863 Active Piotr Daley DO Active IBUPROFEN 800 MG TABS 1 po q 8 hours prn pain sparinly IBUPROFEN 800 MG TABS 328891 IBUPROFEN Inactive NYSTATIN-TRIAMCINOLONE 133368-9.1 UNIT/GM-% CREA apply bid 08/19 NYSTATIN-TRIAMCINOLONE 756142-5.1 UNIT/GM-% CREA 5646399 NYSTATIN- TRIAMCINOLONE Inactive AZITHROMYCIN 500 MG SOLR 1 po q day AZITHROMYCIN 500 MG SOLR 16281362440 AZITHROMYCIN Inactive VENTOLIN HFA 108 (90 BASE) MCG/ACT AERS 2 puffs four times a day PRN cough VENTOLIN HFA 108 (90 BASE) MCG/ACT AERS ALBUTEROL SULFATE Inactive LISINOPRIL 10 MG TABS 1/2-1 tab po every other day LISINOPRIL 10 MG TABS 464637 LISINOPRIL Inactive TUSSIONEX PENNKINETIC ER 10-8 MG/5ML LQCR 5ml po q12hr PRN Cough TUSSIONEX PENNKINETIC ER 10-8 MG/5ML LQCR HYDROCOD POLST- CHLORPHEN POLST Inactive PROMETHAZINE HCL 25 MG TABS 1 four times a day as needed for nausea/vomiting PROMETHAZINE HCL 25 MG TABS 001288 PROMETHAZINE HCL Inactive PREDNISONE 20 MG TAB 1 tablet twice daily for 2 days, then 1 tablet once daily for 2 days PREDNISONE 20 MG TAB 742149 PREDNISONE Inactive WARFARIN SODIUM 4 MG TABS 1 tab every evening WARFARIN SODIUM 4 MG TABS 203871 WARFARIN SODIUM Inactive LOMOTIL 2.5-0.025 MG TAB 1 to 2 four times a day as needed for diarrhea 10/13 LOMOTIL 2.5-0.025 MG TAB 9105576 DIPHENOXYLATE-ATROPINE Inactive IBUPROFEN 800 MG TABS 1 tab every 8 hours as needed IBUPROFEN 800 MG TABS 753449 IBUPROFEN Inactive PREDNISONE 20 MG TAB 2 tablets today, then 1 tablet days 2 through 4 PREDNISONE 20 MG TAB 176553 PREDNISONE Inactive GABAPENTIN 300 MG CAPS 1 po q hs for nerve pain GABAPENTIN 300 MG CAPS 840817 GABAPENTIN Inactive TRAMADOL HCL 50 MG TABS 1 po tid with ES Tylenol TRAMADOL HCL 50 MG TABS 609623 TRAMADOL HCL Inactive AZITHROMYCIN 250 MG TABS 2 po qd x 1 day, then 1 po qd x 4 days AZITHROMYCIN 250 MG TABS 9809386 AZITHROMYCIN Inactive AZITHROMYCIN 250 MG TABS 2 po qd x 1 day, then 1 po qd x 4 days AZITHROMYCIN 250 MG TABS 3397861 AZITHROMYCIN Inactive NYSTATIN-TRIAMCINOLONE 095574-0.1 UNIT/GM-% CREA Apply to area BID NYSTATIN-TRIAMCINOLONE 055322-7.1 UNIT/GM-% CREA 6314781 NYSTATIN-TRIAMCINOLONE Inactive AZITHROMYCIN 250 MG TABS 2 po qd x 1 day, then 1 po qd x 4 days AZITHROMYCIN 250 MG TABS 8043847 AZITHROMYCIN Inactive AZITHROMYCIN 250 MG TABS 2 po qd x 1 day, then 1 po qd x 4 days AZITHROMYCIN 250 MG TABS 4314091 AZITHROMYCIN Inactive AZITHROMYCIN 250 MG TABS 2 po qd x 1 day, then 1 po qd x 4 days AZITHROMYCIN 250 MG TABS 6170581 AZITHROMYCIN Inactive PREDNISONE 20 MG TAB 2 tabs daily for 3 days, 1 tab daily for 3 days, 1/2 tab daily for 2 days PREDNISONE 20 MG TAB 274831 PREDNISONE Inactive Advance Directives Directive Description Start [...] Panel - Chemistry sodium, serum 141 mmol/L 326-763 4958/01/24 potassium, serum 4.3 mmol/L 3.5-5.2 chloride, serum 103 mmol/L 98-107 carbon dioxide, venous blood 30.7 mmol/L 21.0-32.0 blood glucose 90 mg/dL 65-110 calcium, serum 8.5 mg/dL 8.5-10.1 urea nitrogen, blood 16 mg/dL 7-18 creatinine, serum 1.09 mg/dL 0.55-1.30 Lab Report: Comp. Metabolic Panel - Chemistry sodium, serum 141 mmol/L 538-111 8906/06/28 carbon dioxide, venous blood 31.0 mmol/L 21.0-32.0 [...] ratio (INR) 2.3 1.0-3.5 prothrombin time (patient) 27.8 SECS s 11.1-13.4 international normalized ratio (INR) 4.2 1.0-3.5 prothrombin time (patient) 15.4 SECS s 11.1-13.4 international normalized ratio (INR) 1.7 1.0-3.5 prothrombin time (patient) 24.3 SECS s 11.1-13.4 international normalized ratio (INR) 3.3 1.0-3.5 prothrombin time (patient) 23.8 SECS s 11.1-13.4 international normalized ratio (INR) 3.2 1.0-3.5 prothrombin time (patient) 18.1 SECS s 11.1-13.4 international normalized ratio (INR) 2.2 1.0-3.5 international normalized ratio (INR) 2.3 1.0-3.5 prothrombin time (patient) 18.3 SECS s 11.1-13.4 prothrombin time (patient) 23.1 SECS s 11.1-13.4 international normalized ratio (INR) 3.0 1.0-3.5 international normalized ratio (INR) 3.0 1.0-3.5 prothrombin time (patient) 22.8 SECS s 11.1-13.4 prothrombin time (patient) 20.8 SECS s 11.1-13.4 international normalized ratio (INR) 2.5 1.0-3.5 Encounters Code Encounter Date Provider Facility CPT-28456 Level 3 Est. Patient 10:48:17 VICE PRESIDENT NETWORK DEVELOPMENT Matthew Rangel MD [facility] CPT-73955 Level 4 Est. Patient 17:15:07 VICE PRESIDENT NETWORK DEVELOPMENT Piotr Daley [facility] CPT-25006 Level 3 Est. Patient 12:46:13 VICE PRESIDENT NETWORK DEVELOPMENT Piotr Daley [facility] CPT-49704 Level 3 Est. Patient 15:14:31 VICE PRESIDENT NETWORK DEVELOPMENT Piotr Daley [facility] CPT-29030 Level 3 Est. Patient 09:20:13 VICE PRESIDENT NETWORK DEVELOPMENT Piotr Daley [facility] CPT-02460 Level 3 Est. Patient 09:49:40 CDT Piotr Wilson [facility] CPT-79123 Level 3 Est. Patient 16:28:11 CDT Piotr Daley [facility] CPT-65276 Level 3 Est. Patient 12:41:58 VICE PRESIDENT NETWORK DEVELOPMENT Piotr Daley [facility] CPT-93662 Level 3 Est. Patient 09:21:[address] [facility] CPT-22628 Level 3 Est. Patient 09:21:11 CDT Piotr Wilson [facility] CPT-29773 Level 3 Est. Patient 11:16:29 VICE PRESIDENT NETWORK DEVELOPMENT Piotr Daley [facility] CPT-30894 Level 3 Est. Patient 18:40:19 VICE PRESIDENT NETWORK DEVELOPMENT Piotr Daley [facility] CPT-88061 Level 3 Est. Patient 19:30:50 CDT Piotr Wilson [facility] CPT-74975 Level 3 Est. Patient 22:06:44 CDT Katrina Rinaldi MD [facility] CPT-15499 Level 3 Est. Patient 14:20:00 CDT Piotr Daley [facility] CPT-76962 Level 3 Est. Patient 14:15:22 VICE PRESIDENT NETWORK DEVELOPMENT Piotr Daley [facility] CPT-80026 Level 3 Est. Patient 20:19:57 VICE PRESIDENT NETWORK DEVELOPMENT Piotr Daley [facility] CPT-98251 Level 3 Est. Patient 16:44:32 CDT Piotr Daley [facility] CPT-79707 Level 3 Est. Patient 08:48:46 VICE PRESIDENT NETWORK DEVELOPMENT Piotr Daley [facility] CPT-70379 Level 3 Est. Patient 21:01:21 CDT Piotr Wilson [facility] Procedures Code Procedure Name Date Entry Date Standard Description CPT-40266 BMP - LAB USE ONLY 17:19:11 VICE PRESIDENT NETWORK DEVELOPMENT CPT-79025 PT/INR - LAB USE ONLY 17:19:10 VICE PRESIDENT NETWORK DEVELOPMENT CPT-35358 Venipuncture Draw Fee 17:19:10 VICE PRESIDENT NETWORK DEVELOPMENT CPT-44769 PT/INR - LAB USE ONLY 08:12:25 VICE PRESIDENT NETWORK DEVELOPMENT CPT-13047 Venipuncture Draw Fee 08:12:24 VICE PRESIDENT NETWORK DEVELOPMENT CPT-45420 Venipuncture Draw Fee 11:31:07 VICE PRESIDENT NETWORK DEVELOPMENT CPT-67467 TPSA - LAB USE ONLY 11:31:07 VICE PRESIDENT NETWORK DEVELOPMENT CPT-48074 PT/INR - LAB USE ONLY 11:31:07 VICE PRESIDENT NETWORK DEVELOPMENT CPT-G0439 [facility] Annual Wellness Exam 09:59:29 VICE PRESIDENT NETWORK DEVELOPMENT CPT-30579 Creatinine - LAB USE ONLY 14:37:55 VICE PRESIDENT NETWORK DEVELOPMENT CPT-83989 PT/INR - LAB USE ONLY 14:37:55 VICE PRESIDENT NETWORK DEVELOPMENT CPT-78358 Venipuncture Draw Fee 14:37:55 VICE PRESIDENT NETWORK DEVELOPMENT CPT-43193 LS spine comp w obliques - XRAY USE ONLY 12:59:25 VICE PRESIDENT NETWORK DEVELOPMENT CPT-91797 PT/INR - LAB USE ONLY 13:49:20 CDT CPT-84938 Venipuncture Draw Fee 13:49:19 CDT CPT-93873 PT/INR - LAB USE ONLY 15:48:49 CDT CPT-55292 Venipuncture Draw Fee 15:48:49 CDT CPT-89034 Venipuncture Draw Fee 11:31:59 CDT CPT-43221 PT/INR - LAB USE ONLY 11:31:59 CDT CPT-49686 Venipuncture Draw Fee 13:29:15 CDT CPT-03166 Thoracolumbar AP/Lat 15:19:19 VICE PRESIDENT NETWORK DEVELOPMENT CPT-G0438 Initial Annual Wellness Exam 12:18:54 VICE PRESIDENT NETWORK DEVELOPMENT CPT-23344 Knee 3V 09:57:38 CDT CPT-OV Office Visit 15:45:01 VICE PRESIDENT NETWORK DEVELOPMENT CPT-91132 Abd compl w upright 17:10:25 CDT
--- OUTSIDE RECORDS SUMMARY | 2018-07-18 09:39 | XMS REPORT | Clinical Summary ---
Author Author Admin, Isidra Organization [employer] Address Unknown Phone Unavailable Allergies, Adverse Reactions, [...] times a day as needed ALBUTEROL SULFATE 08236708857 Active Matthew Rangel MD Active PREDNISONE 20 MG TAB 2 tabs daily for 3 days, 1 tab daily for 3 days, 1/2 tab daily for 2 days PREDNISONE 75794348642 No Longer Active Matthew Rangel MD Active TRAMADOL HCL 50 MG TABS 1 po tid with ES Tylenol TRAMADOL HCL 77833243403 No Longer Active Matthew Rangel MD Active GABAPENTIN 300 MG CAPS 1 po q hs for nerve pain GABAPENTIN 85441869348 No Longer Active Matthew Rangel MD Active WARFARIN SODIUM 5 MG TABS 1 tablet daily WARFARIN SODIUM 83597896552 Active Piotr Daley DO Active PREDNISONE 20 MG TAB 2 tablets today, then 1 tablet days 2 through 4 PREDNISONE 42859284113 No Longer Active Piotr Daley DO Active AZITHROMYCIN 250 MG TABS 2 po qd x 1 day, then 1 po qd x 4 days AZITHROMYCIN 11113688514 No Longer Active Piotr Daley DO Active IBUPROFEN 800 MG TABS 1 tab every 8 hours as needed IBUPROFEN 31827754296 No Longer Active Piotr Daley DO Active LOMOTIL 2.5-0.025 MG TAB 1 to 2 four times a day as needed for diarrhea 10/13 DIPHENOXYLATE-ATROPINE 24581256804 No Longer Active Piotr Daley DO Active WARFARIN SODIUM 4 MG TABS 1 tab every evening WARFARIN SODIUM 67858689757 No Longer Active Piotr Daley DO Active PREDNISONE 20 MG TAB 1 tablet twice daily for 2 days, then 1 tablet once daily for 2 days PREDNISONE 27906684198 No Longer Active Piotr Daley DO Active PROMETHAZINE HCL 25 MG TABS 1 four times a day as needed for nausea/vomiting PROMETHAZINE HCL 67391386544 No Longer Active Piotr Daley DO Active TUSSIONEX PENNKINETIC ER 10-8 MG/5ML LQCR 5ml po q12hr PRN Cough HYDROCOD POLST-CHLORPHEN POLST 71926776616 No Longer Active Piotr Daley DO Active AZITHROMYCIN 250 MG TABS 2 po qd x 1 day, then 1 po qd x 4 days AZITHROMYCIN 49379753515 No Longer Active Piotr Daley DO Active AZITHROMYCIN 250 MG TABS 2 po qd x 1 day, then 1 po qd x 4 days AZITHROMYCIN 42240909307 No Longer Active Piotr Daley DO Active LISINOPRIL-HYDROCHLOROTHIAZIDE 10-12.5 MG TABS 1 tab by mouth daily LISINOPRIL-HYDROCHLOROTHIAZIDE 21170888569 Active Simi Meyers Active LISINOPRIL 10 MG TABS 1/2-1 tab po every other day LISINOPRIL 04032833605 No Longer Active Piotr Daley DO Active VENTOLIN HFA 108 (90 BASE) MCG/ACT AERS 2 puffs four times a day PRN cough ALBUTEROL SULFATE 07020990326 No Longer Active Piotr Daley DO Active NYSTATIN-TRIAMCINOLONE 819049-1.1 UNIT/GM-% CREA Apply to area BID NYSTATIN-TRIAMCINOLONE 04939906190 No Longer Active Alena Chavira 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 PHISOHEX 3 % LIQD Use Directed HEXACHLOROPHENE 01263826350 No Longer Active Sandra Dentarger Active AZITHROMYCIN 250 MG TABS 2 po qd x 1 day, then 1 po qd x 4 days AZITHROMYCIN 06076055250 No Longer Active Katrina Rinaldi MD PhD Active AZITHROMYCIN 250 MG TABS 2 po qd x 1 day, then 1 po qd x 4 days AZITHROMYCIN 17854400686 No Longer Active Piotr Daley DO Active AZITHROMYCIN 500 MG SOLR 1 po q day AZITHROMYCIN 28391856610 No Longer Active Piotr Daley DO Active NYSTATIN-TRIAMCINOLONE 646197-8.1 UNIT/GM-% CREA apply bid 08/19 NYSTATIN-TRIAMCINOLONE 87227620953 No Longer Active Piotr Daley DO Active IBUPROFEN 800 MG TABS 1 po q 8 hours prn pain sparinly IBUPROFEN 55823693333 No Longer Active Piotr Daley DO Active VITAMIN D3 5000 UNIT CAPS 1 po daily CHOLECALCIFEROL 86587681070 Active Piotr Daley DO Active IBUPROFEN 800 MG TABS 1 po q 8 hours prn pain sparinly IBUPROFEN 800 MG TABS 161696 IBUPROFEN Inactive NYSTATIN-TRIAMCINOLONE 442821-0.1 UNIT/GM-% CREA apply bid 08/19 NYSTATIN-TRIAMCINOLONE 755127-4.1 UNIT/GM-% CREA 8119118 NYSTATIN- TRIAMCINOLONE Inactive AZITHROMYCIN 500 MG SOLR 1 po q day AZITHROMYCIN 500 MG SOLR 29931707409 AZITHROMYCIN Inactive VENTOLIN HFA 108 (90 BASE) MCG/ACT AERS 2 puffs four times a day PRN cough VENTOLIN HFA 108 (90 BASE) MCG/ACT AERS ALBUTEROL SULFATE Inactive LISINOPRIL 10 MG TABS 1/2-1 tab po every other day LISINOPRIL 10 MG TABS 334204 LISINOPRIL Inactive TUSSIONEX PENNKINETIC ER 10-8 MG/5ML LQCR 5ml po q12hr PRN Cough TUSSIONEX PENNKINETIC ER 10-8 MG/5ML LQCR HYDROCOD POLST- CHLORPHEN POLST Inactive PROMETHAZINE HCL 25 MG TABS 1 four times a day as needed for nausea/vomiting PROMETHAZINE HCL 25 MG TABS 450152 PROMETHAZINE HCL Inactive PREDNISONE 20 MG TAB 1 tablet twice daily for 2 days, then 1 tablet once daily for 2 days PREDNISONE 20 MG TAB 171647 PREDNISONE Inactive WARFARIN SODIUM 4 MG TABS 1 tab every evening WARFARIN SODIUM 4 MG TABS 838317 WARFARIN SODIUM Inactive LOMOTIL 2.5-0.025 MG TAB 1 to 2 four times a day as needed for diarrhea 10/13 LOMOTIL 2.5-0.025 MG TAB 3456988 DIPHENOXYLATE-ATROPINE Inactive IBUPROFEN 800 MG TABS 1 tab every 8 hours as needed IBUPROFEN 800 MG TABS 667238 IBUPROFEN Inactive PREDNISONE 20 MG TAB 2 tablets today, then 1 tablet days 2 through 4 PREDNISONE 20 MG TAB 648538 PREDNISONE Inactive GABAPENTIN 300 MG CAPS 1 po q hs for nerve pain GABAPENTIN 300 MG CAPS 546498 GABAPENTIN Inactive TRAMADOL HCL 50 MG TABS 1 po tid with ES Tylenol TRAMADOL HCL 50 MG TABS 046887 TRAMADOL HCL Inactive AZITHROMYCIN 250 MG TABS 2 po qd x 1 day, then 1 po qd x 4 days AZITHROMYCIN 250 MG TABS 4820449 AZITHROMYCIN Inactive AZITHROMYCIN 250 MG TABS 2 po qd x 1 day, then 1 po qd x 4 days AZITHROMYCIN 250 MG TABS 5253983 AZITHROMYCIN Inactive NYSTATIN-TRIAMCINOLONE 237599-8.1 UNIT/GM-% CREA Apply to area BID NYSTATIN-TRIAMCINOLONE 287098-0.1 UNIT/GM-% CREA 9273896 NYSTATIN-TRIAMCINOLONE Inactive AZITHROMYCIN 250 MG TABS 2 po qd x 1 day, then 1 po qd x 4 days AZITHROMYCIN 250 MG TABS 2436606 AZITHROMYCIN Inactive AZITHROMYCIN 250 MG TABS 2 po qd x 1 day, then 1 po qd x 4 days AZITHROMYCIN 250 MG TABS 8657712 AZITHROMYCIN Inactive AZITHROMYCIN 250 MG TABS 2 po qd x 1 day, then 1 po qd x 4 days AZITHROMYCIN 250 MG TABS 0816191 AZITHROMYCIN Inactive PREDNISONE 20 MG TAB 2 tabs daily for 3 days, 1 tab daily for 3 days, 1/2 tab daily for 2 days PREDNISONE 20 MG TAB 428308 PREDNISONE Inactive Advance Directives Directive Description Start [...] Panel - Chemistry sodium, serum 141 mmol/L 069-685 1035/01/24 potassium, serum 4.3 mmol/L 3.5-5.2 chloride, serum 103 mmol/L 98-107 carbon dioxide, venous blood 30.7 mmol/L 21.0-32.0 blood glucose 90 mg/dL 65-110 calcium, serum 8.5 mg/dL 8.5-10.1 urea nitrogen, blood 16 mg/dL 7-18 creatinine, serum 1.09 mg/dL 0.55-1.30 Lab Report: Comp. Metabolic Panel - Chemistry sodium, serum 141 mmol/L 187-284 4043/06/28 carbon dioxide, venous blood 31.0 mmol/L 21.0-32.0 [...] 1.0-3.5 Encounters Code Encounter Date Provider Facility CPT-50226 Level 3 Est. Patient 10:48:17 LINE ASSEMBLER Matthew Rangel MD [facility] CPT-58138 Level 4 Est. Patient 17:15:07 LINE ASSEMBLER Piotr Daley [facility] CPT-30367 Level 3 Est. Patient 12:46:13 LINE ASSEMBLER Piotr Daley [facility] CPT-91701 Level 3 Est. Patient 15:14:31 LINE ASSEMBLER Piotr Daley [facility] CPT-83015 Level 3 Est. Patient 09:20:13 LINE ASSEMBLER Piotr Daley [facility] CPT-50999 Level 3 Est. Patient 09:49:40 CDT Piotr [facility] CPT-74231 Level 3 Est. Patient 16:28:11 CDT Piotr Daley [facility] CPT-11810 Level 3 Est. Patient 12:41:58 LINE ASSEMBLER Piotr Daley [facility] CPT-23741 Level 3 Est. Patient 09:21:24 CDT Piotr Daley [facility] CPT-18375 Level 3 Est. Patient 09:21:11 CDT Piotr Wilson [facility] CPT-70732 Level 3 Est. Patient 11:16:29 LINE ASSEMBLER Piotr Daley [facility] CPT-90548 Level 3 Est. Patient 18:40:19 LINE ASSEMBLER Piotr Daley [facility] CPT-87984 Level 3 Est. Patient 19:30:[address] [facility] CPT-03239 Level 3 Est. Patient 22:06:44 CDT Katrina Rinaldi MD [facility] CPT-13664 Level 3 Est. Patient 14:20:00 CDT Piotr Daley [facility] CPT-32237 Level 3 Est. Patient 14:15:22 LINE ASSEMBLER Piotr Daley [facility] CPT-29757 Level 3 Est. Patient 20:19:57 LINE ASSEMBLER Piotr Daley [facility] CPT-65051 Level 3 Est. Patient 16:44:32 CDT Piotr Daley [facility] CPT-91224 Level 3 Est. Patient 08:48:46 LINE ASSEMBLER Piotr Daley [facility] CPT-65265 Level 3 Est. Patient 21:01:[address] [facility] Procedures Code Procedure Name Date Entry Date Standard Description CPT-59449 BMP - LAB USE ONLY 17:19:11 LINE ASSEMBLER CPT-00069 PT/INR - LAB USE ONLY 17:19:10 LINE ASSEMBLER CPT-70361 Venipuncture Draw Fee 17:19:10 LINE ASSEMBLER CPT-42060 PT/INR - LAB USE ONLY 08:12:25 LINE ASSEMBLER CPT-41082 Venipuncture Draw Fee 08:12:24 LINE ASSEMBLER CPT-50352 Venipuncture Draw Fee 11:31:07 LINE ASSEMBLER CPT-67182 TPSA - LAB USE ONLY 11:31:07 LINE ASSEMBLER CPT-20742 PT/INR - LAB USE ONLY 11:31:07 LINE ASSEMBLER CPT-G0439 [facility] Annual Wellness Exam 09:59:29 LINE ASSEMBLER CPT-13767 Creatinine - LAB USE ONLY 14:37:55 LINE ASSEMBLER CPT-59517 PT/INR - LAB USE ONLY 14:37:55 LINE ASSEMBLER CPT-20688 Venipuncture Draw Fee 14:37:55 LINE ASSEMBLER CPT-11329 LS spine comp w obliques - XRAY USE ONLY 12:59:25 LINE ASSEMBLER CPT-60165 PT/INR - LAB USE ONLY 13:49:20 CDT CPT-01257 Venipuncture Draw Fee 13:49:19 CDT CPT-12332 PT/INR - LAB USE ONLY 15:48:49 CDT CPT-39327 Venipuncture Draw Fee 15:48:49 CDT CPT-62953 Venipuncture Draw Fee 11:31:59 CDT CPT-01548 PT/INR - LAB USE ONLY 11:31:59 CDT CPT-85164 Venipuncture Draw Fee 13:29:15 CDT CPT-25470 Thoracolumbar AP/Lat 15:19:19 LINE ASSEMBLER CPT-G0438 Initial Annual Wellness Exam 12:18:54 LINE ASSEMBLER CPT-80190 Knee 3V 09:57:38 CDT CPT-OV Office Visit 15:45:01 LINE ASSEMBLER CPT-77052 Abd compl w upright 17:10:25 CDT
--- OUTSIDE RECORDS SUMMARY | 2018-07-18 09:40 | XMS REPORT | Clinical Summary ---
Author Author Admin, Is[facility] Organization [employer] Address Unknown Phone Unavailable Allergies, Adverse Reactions, [...] type of vessel, [place] or graft Back pain, thoracic region, left [...] po q hs for nerve pain GABAPENTIN 46800491061 Active Piotr Daley DO Active WARFARIN SODIUM 5 MG TABS 1 tablet daily WARFARIN SODIUM 18812706325 Active Simi Meyers Active TRAMADOL HCL 50 MG TABS 1 po tid with ES Tylenol TRAMADOL HCL 16564990373 Active Piotr Daley DO Active PREDNISONE 20 MG TAB 2 tablets today, then 1 tablet days 2 through 4 PREDNISONE 34906436524 No Longer Active Piotr Daley DO Active AZITHROMYCIN 250 MG TABS 2 po qd x 1 day, then 1 po qd x 4 days AZITHROMYCIN 28545069273 No Longer Active Piotr Daley DO Active IBUPROFEN 800 MG TABS 1 tab every 8 hours as needed IBUPROFEN 19809521533 No Longer Active Piotr Daley DO Active LOMOTIL 2.5-0.025 MG TAB 1 to 2 four times a day as needed for diarrhea 10/13 DIPHENOXYLATE-ATROPINE 73086787932 No Longer Active Piotr Daley DO Active WARFARIN SODIUM 4 MG TABS 1 tab every evening WARFARIN SODIUM 36856029013 No Longer Active Piotr Daley DO Active PREDNISONE 20 MG TAB 1 tablet twice daily for 2 days, then 1 tablet once daily for 2 days PREDNISONE 81409689620 No Longer Active Piotr Daley DO Active PROMETHAZINE HCL 25 MG TABS 1 four times a day as needed for nausea/vomiting PROMETHAZINE HCL 17249481592 No Longer Active Piotr Daley DO Active TUSSIONEX PENNKINETIC ER 10-8 MG/5ML LQCR 5ml po q12hr PRN Cough HYDROCOD POLST-CHLORPHEN POLST 55955942452 No Longer Active Piotr Daley DO Active AZITHROMYCIN 250 MG TABS 2 po qd x 1 day, then 1 po qd x 4 days AZITHROMYCIN 61714820854 No Longer Active Piotr Daley DO Active AZITHROMYCIN 250 MG TABS 2 po qd x 1 day, then 1 po qd x 4 days AZITHROMYCIN 71918781021 No Longer Active Piotr Daley DO Active LISINOPRIL-HYDROCHLOROTHIAZIDE 10-12.5 MG TABS 1 tab by mouth daily LISINOPRIL-HYDROCHLOROTHIAZIDE 95005687854 Active Hilary Ma MA Active LISINOPRIL 10 MG TABS 1/2-1 tab po every other day LISINOPRIL 74268203258 No Longer Active Piotr Daley DO Active VENTOLIN HFA 108 (90 BASE) MCG/ACT AERS 2 puffs four times a day PRN cough ALBUTEROL SULFATE 04502529487 No Longer Active Piotr Daley DO Active NYSTATIN-TRIAMCINOLONE 265651-0.1 UNIT/GM-% CREA Apply to area BID NYSTATIN-TRIAMCINOLONE 32086167394 No Longer Active Alena Chavira LEAD NITRATE PROCESSOR Active PHISOHEX 3 % LIQD Use Directed HEXACHLOROPHENE 26480363930 No Longer Active Sandra [place] Active AZITHROMYCIN 250 MG TABS 2 po qd x 1 day, then 1 po qd x 4 days AZITHROMYCIN 94233096571 No Longer Active Katrina Rinaldi MD PhD Active AZITHROMYCIN 250 MG TABS 2 po qd x 1 day, then 1 po qd x 4 days AZITHROMYCIN 57049729585 No Longer Active Piotr Daley DO Active AZITHROMYCIN 500 MG SOLR 1 po q day AZITHROMYCIN 35502855002 No Longer Active Piotr Daley DO Active NYSTATIN-TRIAMCINOLONE 095686-1.1 UNIT/GM-% CREA apply bid 08/19 NYSTATIN-TRIAMCINOLONE 58418322375 No Longer Active Piotr Daley DO Active IBUPROFEN 800 MG TABS 1 po q 8 hours prn pain sparinly IBUPROFEN 41806876781 No Longer Active Piotr Daley DO Active VITAMIN D3 5000 UNIT CAPS 1 po daily CHOLECALCIFEROL 38377915337 Active Piotr Daley DO Active IBUPROFEN 800 MG TABS 1 po q 8 hours prn pain sparinly IBUPROFEN 800 MG TABS 382137 IBUPROFEN Inactive NYSTATIN-TRIAMCINOLONE 648281-3.1 UNIT/GM-% CREA apply bid 08/19 NYSTATIN-TRIAMCINOLONE 284228-8.1 UNIT/GM-% CREA 7500619 NYSTATIN- TRIAMCINOLONE Inactive AZITHROMYCIN 500 MG SOLR 1 po q day AZITHROMYCIN 500 MG SOLR 71539782154 AZITHROMYCIN Inactive VENTOLIN HFA 108 (90 BASE) MCG/ACT AERS 2 puffs four times a day PRN cough VENTOLIN HFA 108 (90 BASE) MCG/ACT AERS ALBUTEROL SULFATE Inactive LISINOPRIL 10 MG TABS 1/2-1 tab po every other day LISINOPRIL 10 MG TABS 321945 LISINOPRIL Inactive TUSSIONEX PENNKINETIC ER 10-8 MG/5ML LQCR 5ml po q12hr PRN Cough TUSSIONEX PENNKINETIC ER 10-8 MG/5ML LQCR HYDROCOD POLST- CHLORPHEN POLST Inactive PROMETHAZINE HCL 25 MG TABS 1 four times a day as needed for nausea/vomiting PROMETHAZINE HCL 25 MG TABS 256862 PROMETHAZINE HCL Inactive PREDNISONE 20 MG TAB 1 tablet twice daily for 2 days, then 1 tablet once daily for 2 days PREDNISONE 20 MG TAB 720713 PREDNISONE Inactive WARFARIN SODIUM 4 MG TABS 1 tab every evening WARFARIN SODIUM 4 MG TABS 488397 WARFARIN SODIUM Inactive LOMOTIL 2.5-0.025 MG TAB 1 to 2 four times a day as needed for diarrhea 10/13 LOMOTIL 2.5-0.025 MG TAB 8781989 DIPHENOXYLATE-ATROPINE Inactive IBUPROFEN 800 MG TABS 1 tab every 8 hours as needed IBUPROFEN 800 MG TABS 310333 IBUPROFEN Inactive PREDNISONE 20 MG TAB 2 tablets today, then 1 tablet days 2 through 4 PREDNISONE 20 MG TAB 038225 PREDNISONE Inactive AZITHROMYCIN 250 MG TABS 2 po qd x 1 day, then 1 po qd x 4 days AZITHROMYCIN 250 MG TABS 8229987 AZITHROMYCIN Inactive AZITHROMYCIN 250 MG TABS 2 po qd x 1 day, then 1 po qd x 4 days AZITHROMYCIN 250 MG TABS 1560209 AZITHROMYCIN Inactive NYSTATIN-TRIAMCINOLONE 381778-2.1 UNIT/GM-% CREA Apply to area BID NYSTATIN-TRIAMCINOLONE 969795-6.1 UNIT/GM-% CREA 2678912 NYSTATIN-TRIAMCINOLONE Inactive AZITHROMYCIN 250 MG TABS 2 po qd x 1 day, then 1 po qd x 4 days AZITHROMYCIN 250 MG TABS 6253035 AZITHROMYCIN Inactive AZITHROMYCIN 250 MG TABS 2 po qd x 1 day, then 1 po qd x 4 days AZITHROMYCIN 250 MG TABS 4377760 AZITHROMYCIN Inactive AZITHROMYCIN 250 MG TABS 2 po qd x 1 day, then 1 po qd x 4 days AZITHROMYCIN 250 MG TABS 0754368 AZITHROMYCIN Inactive Advance Directives Directive Description Start [...] Panel - Chemistry sodium, serum 141 mmol/L 187-355 5608/06/28 carbon dioxide, venous blood 31.0 mmol/L 21.0-32.0 [...] Prothrombin Time - Coagulation prothrombin time (patient) 15.4 SECS s 11.1-13.4 prothrombin time (patient) 19.8 SECS s 11.1-13.4 international normalized ratio (INR) 2.3 1.0-3.5 prothrombin time (patient) 23.8 SECS s 11.1-13.4 international normalized ratio (INR) 3.2 1.0-3.5 prothrombin time (patient) 23.1 SECS s 11.1-13.4 international normalized ratio (INR) 3.0 1.0-3.5 international normalized ratio (INR) 1.7 1.0-3.5 prothrombin time (patient) 22.8 SECS s 11.1-13.4 international normalized ratio (INR) 3.0 1.0-3.5 prothrombin time (patient) 20.8 SECS s 11.1-13.4 international normalized ratio (INR) 2.5 1.0-3.5 prothrombin time (patient) 18.9 SECS s 11.1-13.4 international normalized ratio (INR) 2.4 1.0-3.5 prothrombin time (patient) 16.6 SECS s 11.1-13.4 international normalized ratio (INR) 1.9 1.0-3.5 prothrombin time (patient) 18.3 SECS s 11.1-13.4 international normalized ratio (INR) 2.3 1.0-3.5 prothrombin time (patient) 18.1 SECS s 11.1-13.4 international normalized ratio (INR) 2.2 1.0-3.5 Lab Report: UADIP W/MICRO, AUTO - Chemistry protein, total urine random Negative mg/dL Negative RBC, urine, dipstick Negative Negative Lab Report: UADIP W/MICRO, AUTO - Urinalysis urobilinogen, urine, semiquantitative (dipstick) 0.2 Normal leukocyte esterase, urine, by dipstick Negative Negative nitrite, urine, semiquantitative Negative Negative glucose, urine, semiquantitative Negative Negative ketones, urine, by test strip Negative Negative bilirubin, urine Negative Negative specific gravity, urine 1.025 1.000-1.030 appearance, urine Clear Clear urine color Yellow Colorless;Lightyellow;Straw;Yellow pH, urine, semiquantitative 6.0 5.0-8.5 Encounters Code Encounter Date Provider Facility CPT-35314 Level 4 Est. Patient 17:15:07 SCREEN DOOR MAKER Piotr Daley [facility] CPT-10915 Level 3 Est. Patient 12:46:13 SCREEN DOOR MAKER Piotr Daley [facility] CPT-09917 Level 3 Est. Patient 15:14:31 SCREEN DOOR MAKER Piotr Daley [facility] CPT-25077 Level 3 Est. Patient 09:20:13 SCREEN DOOR MAKER Piotr Daley [facility] CPT-22917 Level 3 Est. Patient 09:49:40 CDT Piotr Daley [facility] CPT-71412 Level 3 Est. Patient 16:28:11 CDT Piotr Daley [facility] CPT-60232 Level 3 Est. Patient 12:41:58 SCREEN DOOR MAKER Piotr Daley [facility] CPT-95768 Level 3 Est. Patient 09:21:24 CDT Piotr Daley [facility] CPT-69924 Level 3 Est. Patient 09:21:11 CDT Piotr Daley [facility] CPT-23743 Level 3 Est. Patient 11:16:29 SCREEN DOOR MAKER Piotr Daley [facility] CPT-80675 Level 3 Est. Patient 18:40:19 SCREEN DOOR MAKER Piotr Daley [facility] CPT-08445 Level 3 Est. Patient 19:30:50 CDT Piotr Daley [facility] CPT-13706 Level 3 Est. Patient 22:06:44 CDT Katrina Rinaldi MD PhD [facility] CPT-07281 Level 3 Est. Patient 14:20:00 CDT Piotr Daley [facility] CPT-32828 Level 3 Est. Patient 14:15:22 SCREEN DOOR MAKER Piotr Daley [facility] CPT-60761 Level 3 Est. Patient 20:19:57 SCREEN DOOR MAKER Piotr Daley [facility] CPT-86127 Level 3 Est. Patient 16:44:32 CDT Piotr Daley [facility] CPT-85210 Level 3 Est. Patient 08:48:46 SCREEN DOOR MAKER Piotr Daley [facility] CPT-75404 Level 3 Est. Patient 21:01:21 CDT Piotr Daley [facility] Procedures Code Procedure Name Date Entry Date Standard Description CPT-05036 Creatinine - LAB USE ONLY 14:37:55 SCREEN DOOR [employer]KER CPT-58067 PT/INR - LAB USE ONLY 14:37:55 SCREEN DOOR [employer]KER CPT-55565 Venipuncture Draw Fee 14:37:55 SCREEN DOOR MAKER CPT-16906 LS spine comp w obliques - XRAY USE ONLY 12:59:25 SCREEN DOOR MAKER CPT-97901 PT/INR - LAB USE ONLY 13:49:20 CDT CPT-62889 Venipuncture Draw Fee 13:49:19 CDT CPT-26081 PT/INR - LAB USE ONLY 15:48:49 CDT CPT-08454 Venipuncture Draw Fee 15:48:49 CDT CPT-72487 Venipuncture Draw Fee 11:31:59 CDT CPT-69124 PT/INR - LAB USE ONLY 11:31:59 CDT CPT-25016 Venipuncture Draw Fee 13:29:15 CDT CPT-27536 Thoracolumbar AP/Lat 15:19:19 SCREEN DOOR MAKER CPT-G0438 Initial Annual Wellness Exam 12:18:54 SCREEN DOOR MAKER CPT-98093 Knee 3V 09:57:38 CDT CPT-OV Office Visit 15:45:01 SCREEN DOOR MAKER CPT-76053 Abd compl w upright 17:10:25 CDT
--- OUTSIDE RECORDS SUMMARY | 2018-07-18 09:41 | XMS REPORT | Clinical Summary ---
Author Author Admin, Isidra Organization [employer] Address Unknown Phone Unavailable Allergies, Adverse Reactions, [...] Coronary atherosclerosis of unspecified type of vessel, [place] or graft Back pain, thoracic region, left [...] THROMBOPHLEBITIS, LEG, 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 Inactive Sirisha Chen WORK ADJUSTMENT INSTRUCTOR DEEP VENOUS THROMBOPHLEBITIS, LEG, 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 Inactive Sirisha Chen WORK ADJUSTMENT INSTRUCTOR Seborrheic keratosis ICD-702.19 Inactive Sirisha Chen WORK ADJUSTMENT INSTRUCTOR Bronchitis-Acute ICD-466.0 Inactive Piotr Daley DO Leg pain, right ICD-729.5 Inactive Sirisha Chen WORK ADJUSTMENT INSTRUCTOR Right leg pain ICD-729.5 Inactive Sirisha Chen WORK ADJUSTMENT INSTRUCTOR Bronchitis-Acute ICD-466.0 Inactive Sirisha Chen WORK ADJUSTMENT INSTRUCTOR Knee pain, left ICD-719.46 Inactive Sirisha Chen WORK ADJUSTMENT INSTRUCTOR Actinic keratoses ICD-702.0 Inactive Sirisha Chen WORK ADJUSTMENT INSTRUCTOR Back pain, thoracic region, left ICD-724.1 Inactive Piotr Daley DO Thoracic back pain ICD-724.5 Inactive Sirisha Chen WORK ADJUSTMENT INSTRUCTOR Back pain lumbar ICD-724.2 Inactive Sirisha Chen WORK ADJUSTMENT INSTRUCTOR Insect bite ICD-919.4 Inactive Sirisha Chen WORK ADJUSTMENT INSTRUCTOR Pruritus ICD-698.9 Inactive Sirisha Chen WORK ADJUSTMENT INSTRUCTOR 04/09 Medication List Medication Instructions Start Date Stop Date Generic Name NDC Status Provider Patient Instruction TESSALON PERLES 100 MG ORAL CAPSULE 1-2 tablet by mouth 3 times daily 04/16 BENZONATATE [id number] Active Piotr Daley DO Active PREDNISONE 10 MG ORAL TABLET 1 tablet by mouth daily PREDNISONE 98975748811 Active Piotr Daley DO Active PREDNISONE 20 MG ORAL TABLET two tabs by mouth today, then one tab by mouth days two and three PREDNISONE 40041160441 No Longer Active Piotr Daley DO Active CYCLOBENZAPRINE HCL 10 MG ORAL TABLET 1 tablet by mouth three times daily as needed for muscle spasm/pain CYCLOBENZAPRINE HCL 13174805212 Active Piotr Daley DO Active ZITHROMAX 250 MG ORAL TABLET Take two (2 ) tablets day one, then one (1) tablet a day for four (4) more days AZITHROMYCIN 95692733957 No Longer Active Piotr Daley DO Active PROAIR HFA 108 (90 BASE) MCG/ACT INHALATION AEROSOL SOLUTION 1-2 puffs four times a day as needed ALBUTEROL SULFATE 40584417593 No Longer Active Emelyn Norris Active DOXYCYCLINE HYCLATE 100 MG ORAL CAPSULE 1 cap by mouth BID x10 days DOXYCYCLINE HYCLATE 27496919559 No Longer Active Nella Harris APRN Active WARFARIN SODIUM 5 MG ORAL TABLET 1 tablet daily M-S, 1/2 tab on Heart WARFARIN SODIUM 22873385197 Active Piotr Daley DO Active PREDNISONE 20 MG ORAL TABLET 2 tabs daily for 3 days, 1 tab daily for 3 days, 1/2 tab daily for 2 days PREDNISONE 34580741201 No Longer Active Matthew Rangel MD Active TRAMADOL HCL 50 MG ORAL TABLET 1 po tid with ES Tylenol TRAMADOL HCL 69306689469 No Longer Active Matthew Rangel MD Active GABAPENTIN 300 MG ORAL CAPSULE 1 po q hs for nerve pain GABAPENTIN 74157644588 No Longer Active Matthew Rangel MD Active PREDNISONE 20 MG ORAL TABLET 2 tablets today, then 1 tablet days 2 through 4 PREDNISONE 13450273835 No Longer Active Piotr Daely DO Active AZITHROMYCIN 250 MG ORAL TABLET 2 po qd x 1 day, then 1 po qd x 4 days 07/12 AZITHROMYCIN 26822009892 No Longer Active Piotr Daley DO Active IBUPROFEN 800 MG ORAL TABLET 1 tab every 8 hours as needed 07/12 IBUPROFEN 12488369132 No Longer Active Piotr Daley DO Active LOMOTIL 2.5-0.025 MG ORAL TABLET 1 to 2 four times a day as needed for diarrhea DIPHENOXYLATE-ATROPINE 91135902489 No Longer Active Piotr Daley DO Active WARFARIN SODIUM 4 MG ORAL TABLET 1 tab every evening WARFARIN SODIUM 06814746802 No Longer Active Piotr Daley DO Active PREDNISONE 20 MG ORAL TABLET 1 tablet twice daily for 2 days, then 1 tablet once daily for 2 days PREDNISONE 60240941183 No Longer Active Piotr Daley DO Active PROMETHAZINE HCL 25 MG ORAL TABLET 1 four times a day as needed for nausea/ vomiting PROMETHAZINE HCL 39499578578 No Longer Active Piotr Daley DO Active TUSSIONEX PENNKINETIC ER 10-8 MG/5ML ORAL SUSPENSION EXTENDED RELEASE 5ml po q12hr PRN Cough HYDROCOD POLST-CHLORPHEN POLST 40132617300 No Longer Active Piotr Daley DO Active AZITHROMYCIN 250 MG ORAL TABLET 2 po qd x 1 day, then 1 po qd x 4 days 10/13 AZITHROMYCIN 54981904428 No Longer Active Piotr Dalye DO Active AZITHROMYCIN 250 MG ORAL TABLET 2 po qd x 1 day, then 1 po qd x 4 days 05/07 AZITHROMYCIN 82826222284 No Longer Active Piotr Daley DO Active LISINOPRIL-HYDROCHLOROTHIAZIDE 10-12.5 MG ORAL TABLET 1 tab by mouth daily LISINOPRIL-HYDROCHLOROTHIAZIDE 35735109942 Active Piotr Daley DO Active LISINOPRIL 10 MG ORAL TABLET 1/2-1 tab po every other day LISINOPRIL 58132764277 No Longer Active Piotr Daley DO Active VENTOLIN HFA 108 (90 Base) MCG/ACT INHALATION AEROSOL SOLUTION 2 puffs four times a day PRN cough ALBUTEROL SULFATE 93365778358 No Longer Active Piotr Daley DO Active NYSTATIN-TRIAMCINOLONE 759255-4.1 UNIT/GM-% EXTERNAL CREAM Apply to area BID NYSTATIN-TRIAMCINOLONE 42113969495 No Longer Active Alena Chavira WORK ADJUSTMENT INSTRUCTOR Active PHISOHEX 3 % LIQD Use Directed HEXACHLOROPHENE 38999780788 No Longer Active Sandra Salinas Active AZITHROMYCIN 250 MG ORAL TABLET 2 po qd x 1 day, then 1 po qd x 4 days 10/21 AZITHROMYCIN 62067021961 No Longer Active Katrina Rinaldi MD PhD Active AZITHROMYCIN 250 MG ORAL TABLET 2 po qd x 1 day, then 1 po qd x 4 days 10/16 AZITHROMYCIN 69091655173 No Longer Active Piotr Daley DO Active AZITHROMYCIN 500 MG INTRAVENOUS SOLUTION RECONSTITUTED 1 po q day AZITHROMYCIN 79808571354 No Longer Active Piotr Daley DO Active NYSTATIN-TRIAMCINOLONE 764748-5.1 UNIT/GM-% EXTERNAL CREAM apply bid NYSTATIN-TRIAMCINOLONE 43464601169 No Longer Active Piotr Daley DO Active IBUPROFEN 800 MG ORAL TABLET 1 po q 8 hours prn pain sparinly IBUPROFEN 53233288299 No Longer Active Piotr Daley DO Active VITAMIN D3 5000 UNIT ORAL CAPSULE 1 po daily CHOLECALCIFEROL 14590465832 Active Piotr Daley DO Active IBUPROFEN 800 MG ORAL TABLET 1 po q 8 hours prn pain sparinly IBUPROFEN 800 MG ORAL TABLET 797491 IBUPROFEN Inactive NYSTATIN-TRIAMCINOLONE 410758-9.1 UNIT/GM-% EXTERNAL CREAM apply bid NYSTATIN-TRIAMCINOLONE 281657-1.1 UNIT/GM-% EXTERNAL CREAM 2625195 NYSTATIN-TRIAMCINOLONE Inactive AZITHROMYCIN 500 MG INTRAVENOUS SOLUTION RECONSTITUTED 1 po q day AZITHROMYCIN 500 MG INTRAVENOUS SOLUTION RECONSTITUTED 40904456597 AZITHROMYCIN Inactive VENTOLIN HFA 108 (90 Base) MCG/ACT INHALATION AEROSOL SOLUTION 2 puffs four times a day PRN cough VENTOLIN HFA 108 (90 Base) MCG/ ACT INHALATION AEROSOL SOLUTION ALBUTEROL SULFATE Inactive LISINOPRIL 10 MG ORAL TABLET 1/2-1 tab po every other day LISINOPRIL 10 MG ORAL TABLET 342687 LISINOPRIL Inactive TUSSIONEX PENNKINETIC ER 10-8 MG/5ML ORAL SUSPENSION EXTENDED RELEASE 5ml po q12hr PRN Cough TUSSIONEX PENNKINETIC ER 10-8 MG/5ML ORAL SUSPENSION EXTENDED RELEASE HYDROCOD POLST-CHLORPHEN POLST Inactive PROMETHAZINE HCL 25 MG ORAL TABLET 1 four times a day as needed for nausea/ vomiting PROMETHAZINE HCL 25 MG ORAL TABLET 814097 PROMETHAZINE HCL Inactive PREDNISONE 20 MG ORAL TABLET 1 tablet twice daily for 2 days, then 1 tablet once daily for 2 days PREDNISONE 20 MG ORAL TABLET 558689 PREDNISONE Inactive WARFARIN SODIUM 4 MG ORAL TABLET 1 tab every evening WARFARIN SODIUM 4 MG ORAL TABLET 313991 WARFARIN SODIUM Inactive LOMOTIL 2.5-0.025 MG ORAL TABLET 1 to 2 four times a day as needed for diarrhea LOMOTIL 2.5-0.025 MG ORAL TABLET 4315215 DIPHENOXYLATE-ATROPINE Inactive IBUPROFEN 800 MG ORAL TABLET 1 tab every 8 hours as needed 07/12 IBUPROFEN 800 MG ORAL TABLET 605539 IBUPROFEN Inactive PREDNISONE 20 MG ORAL TABLET 2 tablets today, then 1 tablet days 2 through 4 PREDNISONE 20 MG ORAL TABLET 287725 PREDNISONE Inactive GABAPENTIN 300 MG ORAL CAPSULE 1 po q hs for nerve pain GABAPENTIN 300 MG ORAL CAPSULE 293525 GABAPENTIN Inactive TRAMADOL HCL 50 MG ORAL TABLET 1 po tid with ES Tylenol TRAMADOL HCL 50 MG ORAL TABLET 692050 TRAMADOL HCL Inactive PROAIR HFA 108 (90 BASE) MCG/ACT INHALATION AEROSOL SOLUTION 1-2 puffs four times a day as needed PROAIR HFA 108 (90 BASE) MCG/ACT INHALATION AEROSOL SOLUTION ALBUTEROL SULFATE Inactive PREDNISONE 20 MG ORAL TABLET two tabs by mouth today, then one tab by mouth days two and three PREDNISONE 20 MG ORAL TABLET 794269 PREDNISONE Inactive AZITHROMYCIN 250 MG ORAL TABLET 2 po qd x 1 day, then 1 po qd x 4 days 10/16 AZITHROMYCIN 250 MG ORAL TABLET 215967 AZITHROMYCIN Inactive AZITHROMYCIN 250 MG ORAL TABLET 2 po qd x 1 day, then 1 po qd x 4 days 10/21 AZITHROMYCIN 250 MG ORAL TABLET 481368 AZITHROMYCIN Inactive NYSTATIN-TRIAMCINOLONE 849264-2.1 UNIT/GM-% EXTERNAL CREAM Apply to area BID NYSTATIN-TRIAMCINOLONE 109814-3.1 UNIT/GM-% EXTERNAL CREAM 3884631 NYSTATIN-TRIAMCINOLONE Inactive AZITHROMYCIN 250 MG ORAL TABLET 2 po qd x 1 day, then 1 po qd x 4 days 05/07 AZITHROMYCIN 250 MG ORAL TABLET 160625 AZITHROMYCIN Inactive AZITHROMYCIN 250 MG ORAL TABLET 2 po qd x 1 day, then 1 po qd x 4 days 10/13 AZITHROMYCIN 250 MG ORAL TABLET 660971 AZITHROMYCIN Inactive AZITHROMYCIN 250 MG ORAL TABLET 2 po qd x 1 day, then 1 po qd x 4 days 07/12 AZITHROMYCIN 250 MG ORAL TABLET 603393 AZITHROMYCIN Inactive PREDNISONE 20 MG ORAL TABLET 2 tabs daily for 3 days, 1 tab daily for 3 days, 1/2 tab daily for 2 days PREDNISONE 20 MG ORAL TABLET 770488 PREDNISONE Inactive DOXYCYCLINE HYCLATE 100 MG ORAL CAPSULE 1 cap by mouth BID x10 days DOXYCYCLINE HYCLATE 100 MG ORAL CAPSULE 4575966 DOXYCYCLINE HYCLATE Inactive ZITHROMAX 250 MG ORAL TABLET Take two (2 ) tablets day one, then one (1) tablet a day for four (4) more days ZITHROMAX 250 MG ORAL TABLET 077844 AZITHROMYCIN Inactive Advance Directives Directive Description Start [...] Panel - Chemistry sodium, serum 141 mmol/L 974-496 2945/01/24 potassium, serum 4.3 mmol/L 3.5-5.2 chloride, serum [...] % 11.0-15.0 platelet count 172 THOUSAND/UL 10*3/mm3 607-605 2345/04/12 mean platelet volume 8.6 fL 7.5-12.5 Lab Report: Prothrombin Time - Coagulation prothrombin time (patient) 27.8 SECS s 11.1-13.4 international normalized ratio (INR) 4.2 1.0-3.5 Lab Report: Prothrombin Time Hemochron - Coagulation prothrombin time (patient) 33.0 SECS s 18.9-24.9 Encounters Code Encounter Date Provider Facility CPT-03233 Level 3 Est. Patient 12:33:59 PROJECT MANAGEMENT PROFESSOR Piotr Daley [facility] CPT-20196 Level 3 Est. Patient 15:56:17 PROJECT MANAGEMENT PROFESSOR Piotr Daley [facility] CPT-06140 Level 3 Est. Patient 10:34:54 PROJECT MANAGEMENT PROFESSOR Piotr Daley [facility] CPT-80431 Level 3 Est. Patient 17:10:19 [facility] Level 3 Est. Patient 10:48:17 PROJECT MANAGEMENT PROFESSOR Matthew Rangel MD [facility] CPT-39967 Level 4 Est. Patient 17:15:07 PROJECT MANAGEMENT PROFESSOR Piotr Daley [facility] CPT-05777 Level 3 Est. Patient 12:46:13 PROJECT MANAGEMENT PROFESSOR Piotr Daley [facility] CPT-69039 Level 3 Est. Patient 15:14:31 PROJECT MANAGEMENT PROFESSOR Piotr Daley [facility] CPT-76678 Level 3 Est. Patient 09:20:13 PROJECT MANAGEMENT PROFESSOR Piotr Wilson [facility] CPT-47550 Level 3 Est. Patient 09:49:40 CDT Piotr W Edi [facility] CPT-07126 Level 3 Est. Patient 16:28:11 CDT Piotr Daley [facility] CPT-31813 Level 3 Est. Patient 12:41:58 PROJECT MANAGEMENT PROFESSOR Piotr Daley [facility] CPT-26121 Level 3 Est. Patient 09:21:24 CDT Piotr Daley [facility] CPT-82137 Level 3 Est. Patient 09:21:11 CDT Piotr Daley [facility] CPT-44663 Level 3 Est. Patient 11:16:29 PROJECT MANAGEMENT PROFESSOR Piotr Daley [facility] CPT-36138 Level 3 Est. Patient 18:40:19 PROJECT MANAGEMENT PROFESSOR Piotr Daley [facility] CPT-29472 Level 3 Est. Patient 19:30:50 CDT Piotr Daley [facility] CPT-52242 Level 3 Est. Patient 22:06:44 CDT Katrina Rinaldi MD PhD [facility] CPT-80889 Level 3 Est. Patient 14:20:00 CDT Piotr Daley [facility] CPT-40114 Level 3 Est. Patient 14:15:22 PROJECT MANAGEMENT PROFESSOR Piotr Daley [facility] CPT-64444 Level 3 Est. Patient 20:19:57 PROJECT MANAGEMENT PROFESSOR Piotr Daley [facility] CPT-55637 Level 3 Est. Patient 16:44:32 CDT Piotr Katie Daley [facility] CPT-13717 Level 3 Est. Patient 08:48:46 PROJECT MANAGEMENT PROFESSOR Piotr Daley [facility] CPT-04152 Level 3 Est. Patient 21:01:21 CDT Piotr Katie Edi [facility] Procedures Code Procedure Name Date Entry Date Standard Description CPT-09666 Chest, 2 views 12:55:58 PROJECT MANAGEMENT PROFESSOR CPT-G0439 MC Subsequent Annual Wellness Exam 10:34:52 PROJECT MANAGEMENT PROFESSOR CPT-13001 BMP - LAB USE ONLY 17:19:11 PROJECT MANAGEMENT PROFESSOR CPT-36881 PT/INR - LAB USE ONLY 17:19:10 PROJECT MANAGEMENT PROFESSOR CPT-14012 Venipuncture Draw Fee 17:19:10 PROJECT MANAGEMENT PROFESSOR CPT-23040 PT/INR - LAB USE ONLY 08:12:25 PROJECT MANAGEMENT PROFESSOR CPT-35449 Venipuncture Draw Fee 08:12:24 PROJECT MANAGEMENT PROFESSOR CPT-57553 Venipuncture Draw Fee 11:31:07 PROJECT MANAGEMENT PROFESSOR CPT-31865 TPSA - LAB USE ONLY 11:31:07 [facility] CPT-30848 PT/INR - LAB USE ONLY 11:31:07 [facility] CPT-G0439 Subsequent Annual Wellness Exam 09:59:29 [facility] CPT-08247 Creatinine - LAB USE ONLY 14:37:55 [facility] CPT-15637 PT/INR - LAB USE ONLY 14:37:55 [facility] CPT-02735 Venipuncture Draw Fee 14:37:55 [facility] CPT-07974 LS spine comp w obliques - XRAY USE ONLY 12:59:25 PROJECT 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 PROFESSOR CPT-27973 PT/INR - LAB USE ONLY 13:49:20 CDT CPT-11352 Venipuncture Draw Fee 13:49:19 CDT CPT-76645 PT/INR - LAB USE ONLY 15:48:49 CDT CPT-93769 Venipuncture Draw Fee 15:48:49 CDT CPT-21760 Venipuncture Draw Fee 11:31:59 CDT CPT-10509 PT/INR - LAB USE ONLY 11:31:59 CDT CPT-74661 Venipuncture Draw Fee 13:29:15 CDT CPT-95860 Thoracolumbar AP/Lat 15:19:19 PROJECT MANAGEMENT PROFESSOR CPT-G0438 Initial Annual Wellness Exam 12:18:54 PROJECT MANAGEMENT PROFESSOR CPT-42894 Knee 3V 09:57:38 CDT CPT-OV Office Visit 15:45:01 PROJECT MANAGEMENT PROFESSOR CPT-84112 Abd compl w upright 17:10:25 CDT
--- OUTSIDE RECORDS SUMMARY | 2018-07-18 09:42 | XMS REPORT | Clinical Summary ---
Author Author Admin, E Organization [employer] Address Unknown Phone Unavailable Allergies, Adverse Reactions, [...] Coronary atherosclerosis of unspecified type of vessel, lime or graft Back pain, thoracic region, left [...] MD PhD HEALTH MAINTENANCE EXAM ICD-V70.0 Inactive Katrian Rinaldi MD PhD BRONCHITIS-ACUTE ICD-466.0 Inactive Piotr [...] po q hs for nerve pain GABAPENTIN 85054907323 Active Piotr Daley DO Active WARFARIN SODIUM 5 MG TABS 1 tablet daily WARFARIN SODIUM 11350694515 Active Simi Meyers Active TRAMADOL HCL 50 MG TABS 1 po tid with ES Tylenol TRAMADOL HCL 40369512808 Active Piotr Daley DO Active PREDNISONE 20 MG TAB 2 tablets today, then 1 tablet days 2 through 4 PREDNISONE 15902136830 No Longer Active Piotr Daley DO Active AZITHROMYCIN 250 MG TABS 2 po qd x 1 day, then 1 po qd x 4 days AZITHROMYCIN 43365320263 No Longer Active Piotr Daley DO Active IBUPROFEN 800 MG TABS 1 tab every 8 hours as needed IBUPROFEN 56064181429 No Longer Active Piotr Daley DO Active LOMOTIL 2.5-0.025 MG TAB 1 to 2 four times a day as needed for diarrhea 10/13 DIPHENOXYLATE-ATROPINE 40851112879 No Longer Active Piotr Daley DO Active WARFARIN SODIUM 4 MG TABS 1 tab every evening WARFARIN SODIUM 81161444127 No Longer Active Piotr Daley DO Active PREDNISONE 20 MG TAB 1 tablet twice daily for 2 days, then 1 tablet once daily for 2 days PREDNISONE 71663977004 No Longer Active Piotr Daley DO Active PROMETHAZINE HCL 25 MG TABS 1 four times a day as needed for nausea/vomiting PROMETHAZINE HCL 70275239057 No Longer Active Piotr Daley DO Active TUSSIONEX PENNKINETIC ER 10-8 MG/5ML LQCR 5ml po q12hr PRN Cough HYDROCOD POLST-CHLORPHEN POLST 62627098498 No Longer Active Piotr Daley DO Active AZITHROMYCIN 250 MG TABS 2 po qd x 1 day, then 1 po qd x 4 days AZITHROMYCIN 09704302247 No Longer Active Piotr Daley DO Active AZITHROMYCIN 250 MG TABS 2 po qd x 1 day, then 1 po qd x 4 days AZITHROMYCIN 99068772604 No Longer Active Piotr Daley DO Active LISINOPRIL-HYDROCHLOROTHIAZIDE 10-12.5 MG TABS 1 tab by mouth daily LISINOPRIL-HYDROCHLOROTHIAZIDE 40478970517 Active Simi Meyers Active LISINOPRIL 10 MG TABS 1/2-1 tab po every other day LISINOPRIL 58372054340 No Longer Active Piotr Dalye DO Active VENTOLIN HFA 108 (90 BASE) MCG/ACT AERS 2 puffs four times a day PRN cough ALBUTEROL SULFATE 27970019083 No Longer Active Piotr Daley DO Active NYSTATIN-TRIAMCINOLONE 169222-7.1 UNIT/GM-% CREA Apply to area BID NYSTATIN-TRIAMCINOLONE 18040162810 No Longer Active Alena Chavira HUMAN SERVICES PROGRAM SPECIALIST Active PHISOHEX 3 % LIQD Use Directed HEXACHLOROPHENE 84409598292 No Longer Active Sandra Cunningham Active AZITHROMYCIN 250 MG TABS 2 po qd x 1 day, then 1 po qd x 4 days AZITHROMYCIN 78924222529 No Longer Active Katrina Rinaldi MD PhD Active AZITHROMYCIN 250 MG TABS 2 po qd x 1 day, then 1 po qd x 4 days AZITHROMYCIN 35902255164 No Longer Active Piotr Daley DO Active AZITHROMYCIN 500 MG SOLR 1 po q day AZITHROMYCIN 23627313196 No Longer Active Piotr Daley DO Active NYSTATIN-TRIAMCINOLONE 450161-3.1 UNIT/GM-% CREA apply bid 08/19 NYSTATIN-TRIAMCINOLONE 77643071744 No Longer Active Piotr Daley DO Active IBUPROFEN 800 MG TABS 1 po q 8 hours prn pain sparinly IBUPROFEN 80637280611 No Longer Active Piotr Daley DO Active VITAMIN D3 5000 UNIT CAPS 1 po daily CHOLECALCIFEROL 56912793233 Active Piotr Daley DO Active IBUPROFEN 800 MG TABS 1 po q 8 hours prn pain sparinly IBUPROFEN 800 MG TABS 259183 IBUPROFEN Inactive NYSTATIN-TRIAMCINOLONE 856206-1.1 UNIT/GM-% CREA apply bid 08/19 NYSTATIN-TRIAMCINOLONE 355455-2.1 UNIT/GM-% CREA 8688718 NYSTATIN- TRIAMCINOLONE Inactive AZITHROMYCIN 500 MG SOLR 1 po q day AZITHROMYCIN 500 MG SOLR 23625379292 AZITHROMYCIN Inactive VENTOLIN HFA 108 (90 BASE) MCG/ACT AERS 2 puffs four times a day PRN cough VENTOLIN HFA 108 (90 BASE) MCG/ACT AERS ALBUTEROL SULFATE Inactive LISINOPRIL 10 MG TABS 1/2-1 tab po every other day LISINOPRIL 10 MG TABS 171918 LISINOPRIL Inactive TUSSIONEX PENNKINETIC ER 10-8 MG/5ML LQCR 5ml po q12hr PRN Cough TUSSIONEX PENNKINETIC ER 10-8 MG/5ML LQCR HYDROCOD POLST- CHLORPHEN POLST Inactive PROMETHAZINE HCL 25 MG TABS 1 four times a day as needed for nausea/vomiting PROMETHAZINE HCL 25 MG TABS 256250 PROMETHAZINE HCL Inactive PREDNISONE 20 MG TAB 1 tablet twice daily for 2 days, then 1 tablet once daily for 2 days PREDNISONE 20 MG TAB 143839 PREDNISONE Inactive WARFARIN SODIUM 4 MG TABS 1 tab every evening WARFARIN SODIUM 4 MG TABS 378029 WARFARIN SODIUM Inactive LOMOTIL 2.5-0.025 MG TAB 1 to 2 four times a day as needed for diarrhea 10/13 LOMOTIL 2.5-0.025 MG TAB 9309063 DIPHENOXYLATE-ATROPINE Inactive IBUPROFEN 800 MG TABS 1 tab every 8 hours as needed IBUPROFEN 800 MG TABS 247769 IBUPROFEN Inactive PREDNISONE 20 MG TAB 2 tablets today, then 1 tablet days 2 through 4 PREDNISONE 20 MG TAB 509116 PREDNISONE Inactive AZITHROMYCIN 250 MG TABS 2 po qd x 1 day, then 1 po qd x 4 days AZITHROMYCIN 250 MG TABS 3078617 AZITHROMYCIN Inactive AZITHROMYCIN 250 MG TABS 2 po qd x 1 day, then 1 po qd x 4 days AZITHROMYCIN 250 MG TABS 2859594 AZITHROMYCIN Inactive NYSTATIN-TRIAMCINOLONE 989707-8.1 UNIT/GM-% CREA Apply to area BID NYSTATIN-TRIAMCINOLONE 473622-8.1 UNIT/GM-% CREA 9976368 NYSTATIN-TRIAMCINOLONE Inactive AZITHROMYCIN 250 MG TABS 2 po qd x 1 day, then 1 po qd x 4 days AZITHROMYCIN 250 MG TABS 1096174 AZITHROMYCIN Inactive AZITHROMYCIN 250 MG TABS 2 po qd x 1 day, then 1 po qd x 4 days AZITHROMYCIN 250 MG TABS 1723117 AZITHROMYCIN Inactive AZITHROMYCIN 250 MG TABS 2 po qd x 1 day, then 1 po qd x 4 days AZITHROMYCIN 250 MG TABS 4612447 AZITHROMYCIN Inactive Advance Directives Directive Description Start [...] Panel - Chemistry sodium, serum 141 mmol/L 429-573 1256/01/24 potassium, serum 4.3 mmol/L 3.5-5.2 chloride, serum 103 mmol/L 98-107 carbon dioxide, venous blood 30.7 mmol/L 21.0-32.0 blood glucose 90 mg/dL 65-110 calcium, serum 8.5 mg/dL 8.5-10.1 urea nitrogen, blood 16 mg/dL 7-18 creatinine, serum 1.09 mg/dL 0.55-1.30 Lab Report: CBC - Hematology leukocyte count, [...] Panel - Chemistry sodium, serum 141 mmol/L 650-328 7406/06/28 carbon dioxide, venous blood 31.0 mmol/L 21.0-32.0 [...] 1.0-3.5 Encounters Code Encounter Date Provider Facility CPT-12376 Level 4 Est. Patient 17:15:07 FRENCH COMBER Piotr Daley [facility] CPT-45675 Level 3 Est. Patient 12:46:13 FRENCH COMBER Piotr Daley [facility] CPT-46598 Level 3 Est. Patient 15:14:31 FRENCH COMBER Piotr Daley [facility] CPT-47790 Level 3 Est. Patient 09:20:13 FRENCH COMBER Piotr Daley [facility] CPT-12282 Level 3 Est. Patient 09:49:40 CDT Piotr Daley [facility] CPT-95637 Level 3 Est. Patient 16:28:11 CDT Piotr Daley [facility] CPT-94389 Level 3 Est. Patient 12:41:58 FRENCH COMBER Piotr Daley [facility] CPT-14431 Level 3 Est. Patient 09:21:24 CDT Piotr Daley [facility] CPT-13053 Level 3 Est. Patient 09:21:11 CDT Piotr Daley [facility] CPT-29472 Level 3 Est. Patient 11:16:29 FRENCH COMBER Piotr Daley [facility] CPT-80963 Level 3 Est. Patient 18:40:19 FRENCH COMBER Piotr Daley [facility] CPT-72224 Level 3 Est. Patient 19:30:50 CDT Piotr Daley [facility] CPT-17971 Level 3 Est. Patient 22:06:44 CDT Katrina Rinaldi MD PhD [facility] CPT-62420 Level 3 Est. Patient 14:20:00 CDT Piotr Daley [facility] CPT-32851 Level 3 Est. Patient 14:15:22 FRENCH COMBER Piotr Daley [facility] CPT-70956 Level 3 Est. Patient 20:19:57 FRENCH COMBER Piotr Daley [facility] CPT-73550 Level 3 Est. Patient 16:44:32 CDT Piotr Daley [facility] CPT-12443 Level 3 Est. Patient 08:48:46 FRENCH COMBER Piotr Daley [facility] CPT-50452 Level 3 Est. Patient 21:01:21 CDT Piotr Daley [facility] Procedures Code Procedure Name Date Entry Date Standard Description CPT-80480 BMP - LAB USE ONLY 17:19:11 FRENCH COMBER CPT-67907 PT/INR - LAB USE ONLY 17:19:10 FRENCH COMBER CPT-94659 Venipuncture Draw Fee 17:19:10 FRENCH COMBER CPT-39278 PT/INR - LAB USE ONLY 08:12:25 FRENCH COMBER CPT-03732 Venipuncture Draw Fee 08:12:24 FRENCH COMBER CPT-36348 Venipuncture Draw Fee 11:31:07 FRENCH COMBER CPT-49487 TPSA - LAB USE ONLY 11:31:07 FRENCH COMBER CPT-30682 PT/INR - LAB USE ONLY 11:31:07 FRENCH COMBER CPT-G0439 [facility] Annual Wellness Exam 09:59:29 FRENCH COMBER CPT-94276 Creatinine - LAB USE ONLY 14:37:55 FRENCH COMBER CPT-91037 PT/INR - LAB USE ONLY 14:37:55 FRENCH COMBER CPT-15739 Venipuncture Draw Fee 14:37:55 FRENCH COMBER CPT-89147 LS spine comp w obliques - XRAY USE ONLY 12:59:25 FRENCH COMBER CPT-44283 PT/INR - LAB USE ONLY 13:49:20 CDT CPT-29199 Venipuncture Draw Fee 13:49:19 CDT CPT-89100 PT/INR - LAB USE ONLY 15:48:49 CDT CPT-08880 Venipuncture Draw Fee 15:48:49 CDT CPT-68289 Venipuncture Draw Fee 11:31:59 CDT CPT-86653 PT/INR - LAB USE ONLY 11:31:59 CDT CPT-34687 Venipuncture Draw Fee 13:29:15 CDT CPT-35024 Thoracolumbar AP/Lat 15:19:19 [facility] CPT-G0438 Initial Annual Wellness Exam 12:18:54 [facility] CPT-63164 Knee 3V 09:57:38 CDT CPT-OV Office Visit 15:45:01 [facility] CPT-84459 Abd compl w upright 17:10:25 CDT
--- OUTSIDE RECORDS SUMMARY | 2018-07-18 09:43 | XMS REPORT | Clinical Summary ---
Author Author Admin, Isidra Organization [employer] Address Unknown Phone Unavailable Allergies, Adverse [...] Coronary atherosclerosis of unspecified type of vessel, [place] or graft Back pain, thoracic region, [...] po q hs for nerve pain GABAPENTIN 25237158937 Active Piotr Daley DO Active WARFARIN SODIUM 5 MG TABS 1 tablet daily WARFARIN SODIUM 11062643962 Active Simi Meyers Active TRAMADOL HCL 50 MG TABS 1 po tid with ES Tylenol TRAMADOL HCL 11867414435 Active Piotr Daley DO Active PREDNISONE 20 MG TAB 2 tablets today, then 1 tablet days 2 through 4 PREDNISONE 75197257585 No Longer Active Piotr Daley DO Active AZITHROMYCIN 250 MG TABS 2 po qd x 1 day, then 1 po qd x 4 days AZITHROMYCIN 24374041980 No Longer Active Piotr Daley DO Active IBUPROFEN 800 MG TABS 1 tab every 8 hours as needed IBUPROFEN 21499172863 No Longer Active Piotr Daley DO Active LOMOTIL 2.5-0.025 MG TAB 1 to 2 four times a day as needed for diarrhea 10/13 DIPHENOXYLATE-ATROPINE 78440336312 No Longer Active Piotr Daley DO Active WARFARIN SODIUM 4 MG TABS 1 tab every evening WARFARIN SODIUM 86660162060 No Longer Active Piotr Daley DO Active PREDNISONE 20 MG TAB 1 tablet twice daily for 2 days, then 1 tablet once daily for 2 days PREDNISONE 02772670844 No Longer Active Piotr Daley DO Active PROMETHAZINE HCL 25 MG TABS 1 four times a day as needed for nausea/vomiting PROMETHAZINE HCL 93689653866 No Longer Active Piotr Daley DO Active TUSSIONEX PENNKINETIC ER 10-8 MG/5ML LQCR 5ml po q12hr PRN Cough HYDROCOD POLST-CHLORPHEN POLST 84708868045 No Longer Active Piotr Daley DO Active AZITHROMYCIN 250 MG TABS 2 po qd x 1 day, then 1 po qd x 4 days AZITHROMYCIN 69578956550 No Longer Active Piotr Daley DO Active AZITHROMYCIN 250 MG TABS 2 po qd x 1 day, then 1 po qd x 4 days AZITHROMYCIN 66375197372 No Longer Active Piotr Daley DO Active LISINOPRIL-HYDROCHLOROTHIAZIDE 10-12.5 MG TABS 1 tab by mouth daily LISINOPRIL-HYDROCHLOROTHIAZIDE 78774682123 Active Hilary Ma MA Active LISINOPRIL 10 MG TABS 1/2-1 tab po every other day LISINOPRIL 46742880024 No Longer Active Piotr Daley DO Active VENTOLIN HFA 108 (90 BASE) MCG/ACT AERS 2 puffs four times a day PRN cough ALBUTEROL SULFATE 05393308900 No Longer Active Piotr Daley DO Active NYSTATIN-TRIAMCINOLONE 837122-1.1 UNIT/GM-% CREA Apply to area BID NYSTATIN-TRIAMCINOLONE 54008211183 No Longer Active Alena Chavira BIRD RAISER Active PHISOHEX 3 % LIQD Use Directed HEXACHLOROPHENE 46758329082 No Longer Active Sandra [place] Active AZITHROMYCIN 250 MG TABS 2 po qd x 1 day, then 1 po qd x 4 days AZITHROMYCIN 83856057779 No Longer Active Katrina Rinaldi MD PhD Active AZITHROMYCIN 250 MG TABS 2 po qd x 1 day, then 1 po qd x 4 days AZITHROMYCIN 48435863125 No Longer Active Piotr Daley DO Active AZITHROMYCIN 500 MG SOLR 1 po q day AZITHROMYCIN 78047499052 No Longer Active Piotr Daley DO Active NYSTATIN-TRIAMCINOLONE 684105-0.1 UNIT/GM-% CREA apply bid 08/19 NYSTATIN-TRIAMCINOLONE 74040159797 No Longer Active Piotr Daley DO Active IBUPROFEN 800 MG TABS 1 po q 8 hours prn pain sparinly IBUPROFEN 09289036282 No Longer Active Piotr Daley DO Active VITAMIN D3 5000 UNIT CAPS 1 po daily CHOLECALCIFEROL 84269418626 Active Piotr Daley DO Active IBUPROFEN 800 MG TABS 1 po q 8 hours prn pain sparinly IBUPROFEN 800 MG TABS 023631 IBUPROFEN Inactive NYSTATIN-TRIAMCINOLONE 309175-5.1 UNIT/GM-% CREA apply bid 08/19 NYSTATIN-TRIAMCINOLONE 286350-5.1 UNIT/GM-% CREA 8777734 NYSTATIN- TRIAMCINOLONE Inactive AZITHROMYCIN 500 MG SOLR 1 po q day AZITHROMYCIN 500 MG SOLR 70311118600 AZITHROMYCIN Inactive VENTOLIN HFA 108 (90 BASE) MCG/ACT AERS 2 puffs four times a day PRN cough VENTOLIN HFA 108 (90 BASE) MCG/ACT AERS ALBUTEROL SULFATE Inactive LISINOPRIL 10 MG TABS 1/2-1 tab po every other day LISINOPRIL 10 MG TABS 816362 LISINOPRIL Inactive TUSSIONEX PENNKINETIC ER 10-8 MG/5ML LQCR 5ml po q12hr PRN Cough TUSSIONEX PENNKINETIC ER 10-8 MG/5ML LQCR HYDROCOD POLST- CHLORPHEN POLST Inactive PROMETHAZINE HCL 25 MG TABS 1 four times a day as needed for nausea/vomiting PROMETHAZINE HCL 25 MG TABS 293318 PROMETHAZINE HCL Inactive PREDNISONE 20 MG TAB 1 tablet twice daily for 2 days, then 1 tablet once daily for 2 days PREDNISONE 20 MG TAB 978073 PREDNISONE Inactive WARFARIN SODIUM 4 MG TABS 1 tab every evening WARFARIN SODIUM 4 MG TABS 209532 WARFARIN SODIUM Inactive LOMOTIL 2.5-0.025 MG TAB 1 to 2 four times a day as needed for diarrhea 10/13 LOMOTIL 2.5-0.025 MG TAB 6761117 DIPHENOXYLATE-ATROPINE Inactive IBUPROFEN 800 MG TABS 1 tab every 8 hours as needed IBUPROFEN 800 MG TABS 317945 IBUPROFEN Inactive PREDNISONE 20 MG TAB 2 tablets today, then 1 tablet days 2 through 4 PREDNISONE 20 MG TAB 619267 PREDNISONE Inactive AZITHROMYCIN 250 MG TABS 2 po qd x 1 day, then 1 po qd x 4 days AZITHROMYCIN 250 MG TABS 7428318 AZITHROMYCIN Inactive AZITHROMYCIN 250 MG TABS 2 po qd x 1 day, then 1 po qd x 4 days AZITHROMYCIN 250 MG TABS 5383495 AZITHROMYCIN Inactive NYSTATIN-TRIAMCINOLONE 610873-6.1 UNIT/GM-% CREA Apply to area BID NYSTATIN-TRIAMCINOLONE 594439-9.1 UNIT/GM-% CREA 5936590 NYSTATIN-TRIAMCINOLONE Inactive AZITHROMYCIN 250 MG TABS 2 po qd x 1 day, then 1 po qd x 4 days AZITHROMYCIN 250 MG TABS 3719946 AZITHROMYCIN Inactive AZITHROMYCIN 250 MG TABS 2 po qd x 1 day, then 1 po qd x 4 days AZITHROMYCIN 250 MG TABS 3937609 AZITHROMYCIN Inactive AZITHROMYCIN 250 MG TABS 2 po qd x 1 day, then 1 po qd x 4 days AZITHROMYCIN 250 MG TABS 9032037 AZITHROMYCIN Inactive Advance Directives Directive Description Start [...] Panel - Chemistry sodium, serum 141 mmol/L 141-499 5400/06/28 carbon dioxide, venous blood 31.0 mmol/L 21.0-32.0 [...] ratio (INR) 2.5 1.0-3.5 prothrombin time (patient) 15.4 SECS s 11.1-13.4 international normalized ratio (INR) 1.7 1.0-3.5 Lab Report: UADIP W/MICRO, AUTO - Chemistry RBC, urine, dipstick Negative Negative protein, total urine random Negative mg/dL Negative Lab Report: UADIP W/MICRO, AUTO - Urinalysis pH, urine, semiquantitative 6.0 5.0-8.5 glucose, urine, semiquantitative Negative Negative leukocyte esterase, urine, by dipstick Negative Negative nitrite, urine, semiquantitative Negative Negative urobilinogen, urine, semiquantitative (dipstick) 0.2 Normal bilirubin, urine Negative Negative ketones, urine, by test strip Negative Negative specific gravity, urine 1.025 1.000-1.030 appearance, urine Clear Clear urine color Yellow Colorless;Lightyellow;Straw;Yellow Encounters Code Encounter Date Provider Facility CPT-32086 Level 4 Est. Patient 17:15:07 TORPEDO SPECIALIST Piotr Daley DO [facility] CPT-26190 Level 3 Est. Patient 12:46:13 TORPEDO SPECIALIST Piotr Daley [facility] CPT-34380 Level 3 Est. Patient 15:14:31 TORPEDO SPECIALIST Piort Daley [facility] CPT-49035 Level 3 Est. Patient 09:20:13 TORPEDO SPECIALIST Piotr Daley [facility] CPT-69686 Level 3 Est. Patient 09:49:40 CDT Piotr Daley [facility] CPT-95834 Level 3 Est. Patient 16:28:11 CDT Piotr Daley [facility] CPT-68451 Level 3 Est. Patient 12:41:58 TORPEDO SPECIALIST Piotr Daley [facility] CPT-05174 Level 3 Est. Patient 09:21:24 CDT Piotr Daley [facility] CPT-53998 Level 3 Est. Patient 09:21:11 CDT Piotr Daley [facility] CPT-28762 Level 3 Est. Patient 11:16:29 TORPEDO SPECIALIST Piotr Daley [facility] CPT-74038 Level 3 Est. Patient 18:40:19 TORPEDO SPECIALIST Piotr Daley [facility] CPT-72583 Level 3 Est. Patient 19:30:50 CDT Piotr Daley [facility] CPT-93704 Level 3 Est. Patient 22:06:44 CDT Katrina Rinaldi MD [facility] CPT-46882 Level 3 Est. Patient 14:20:00 CDT Piotr Daley [facility] CPT-75334 Level 3 Est. Patient 14:15:22 TORPEDO SPECIALIST Piotr Daley [facility] CPT-24526 Level 3 Est. Patient 20:19:57 TORPEDO SPECIALIST Piotr Daley [facility] CPT-89465 Level 3 Est. Patient 16:44:32 CDT Piotr Daley [facility] CPT-54417 Level 3 Est. Patient 08:48:46 TORPEDO SPECIALIST Piotr Daley [facility] CPT-69936 Level 3 Est. Patient 21:01:21 CDT Piotr Daley DO [facility] Procedures Code Procedure Name Date Entry Date Standard Description CPT-65902 Venipuncture Draw Fee 11:31:07 TORPEDO SPECIALIST CPT-98394 TPSA - LAB USE ONLY 11:31:07 TORPEDO SPECIALIST CPT-10093 PT/INR - LAB USE ONLY 11:31:07 TORPEDO SPECIALIST CPT-G0439 Subsequent Annual Wellness Exam 09:59:29 TORPEDO SPECIALIST CPT-85232 Creatinine - LAB USE ONLY 14:37:55 TORPEDO SPECIALIST CPT-26582 PT/INR - LAB USE ONLY 14:37:55 TORPEDO SPECIALIST CPT-95956 Venipuncture Draw Fee 14:37:55 TORPEDO SPECIALIST CPT-62031 LS spine comp w obliques - XRAY USE ONLY 12:59:25 TORPEDO SPECIALIST CPT-56032 PT/INR - LAB USE ONLY 13:49:20 CDT CPT-27037 Venipuncture Draw Fee 13:49:19 CDT CPT-77743 PT/INR - LAB USE ONLY 15:48:49 CDT CPT-71986 Venipuncture Draw Fee 15:48:49 CDT CPT-82114 Venipuncture Draw Fee 11:31:59 CDT CPT-50152 PT/INR - LAB USE ONLY 11:31:59 CDT CPT-00976 Venipuncture Draw Fee 13:29:15 CDT CPT-00423 Thoracolumbar AP/Lat 15:19:19 TORPEDO SPECIALIST CPT-G0438 Initial Annual Wellness Exam 12:18:54 TORPEDO SPECIALIST CPT-95020 Knee 3V 09:57:38 CDT CPT-OV Office Visit 15:45:01 TORPEDO SPECIALIST CPT-15914 Abd compl w upright 17:10:25 CDT
--- OUTSIDE RECORDS SUMMARY | 2018-07-18 09:45 | XMS REPORT | Clinical Summary ---
Author Author Admin, Isidra Organization [email or web address] Address Unknown Phone Unavailable Allergies, Adverse Reactions, [...] seborrheic keratosis Bronchitis-Acute 466.0 Inactive Piotr W Eid DO Acute bronchitis Leg pain, right 729.5 [...] Coronary atherosclerosis of unspecified type of vessel, [place] or graft Back pain, thoracic region, left [...] THROMBOPHLEBITIS, LEG, 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 Inactive Sirisha Chen FAMILY PROGRAM SPECIALIST DEEP VENOUS THROMBOPHLEBITIS, LEG, 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 Inactive Sirisha Chen FAMILY PROGRAM SPECIALIST Seborrheic keratosis ICD-702.19 Inactive Sirisha Chen FAMILY PROGRAM SPECIALIST Bronchitis-Acute ICD-466.0 Inactive Piotr Daley DO Leg pain, right ICD-729.5 Inactive Sirisha Chen FAMILY PROGRAM SPECIALIST Right leg pain ICD-729.5 Inactive Sirisha Chen FAMILY PROGRAM SPECIALIST Bronchitis-Acute ICD-466.0 Inactive Sirisha Chen FAMILY PROGRAM SPECIALIST Knee pain, left ICD-719.46 Inactive Sirisha Chen FAMILY PROGRAM SPECIALIST Actinic keratoses ICD-702.0 Inactive Sirisha Chen FAMILY PROGRAM SPECIALIST Back pain, thoracic region, left ICD-724.1 Inactive Piotr Daley DO Thoracic back pain ICD-724.5 Inactive Sirisha Chen FAMILY PROGRAM SPECIALIST Back pain lumbar ICD-724.2 Inactive Sirisha Chen FAMILY PROGRAM SPECIALIST Insect bite ICD-919.4 Inactive Sirisha Chen FAMILY PROGRAM SPECIALIST Pruritus ICD-698.9 Inactive Sirisha Chen FAMILY PROGRAM SPECIALIST 04/09 Medication List Medication Instructions Start Date Stop Date Generic Name NDC Status Provider Patient Instruction WARFARIN SODIUM 5 MG ORAL TABLET 1 tablet daily M, T, T, F, Sa, 1/2 tab on W, Heart WARFARIN SODIUM 66980698140 Active Sirishaandre Chen LPN Active TESSALON PERLES 100 MG ORAL CAPSULE 1-2 tablet by mouth 3 times daily 04/16 BENZONATATE 81916899272 Active Piotr Daley DO Active PREDNISONE 10 MG ORAL TABLET 1 tablet by mouth daily PREDNISONE 93204463315 Active Piotr Daley DO Active PREDNISONE 20 MG ORAL TABLET two tabs by mouth today, then one tab by mouth days two and three PREDNISONE 48008123489 No Longer Active Piotr Daley DO Active CYCLOBENZAPRINE HCL 10 MG ORAL TABLET 1 tablet by mouth three times daily as needed for muscle spasm/pain CYCLOBENZAPRINE HCL 25028088212 Active Piotr Daley DO Active ZITHROMAX 250 MG ORAL TABLET Take two (2 ) tablets day one, then one (1) tablet a day for four (4) more days AZITHROMYCIN 63088685354 No Longer Active Piotr Daley DO Active PROAIR HFA 108 (90 BASE) MCG/ACT INHALATION AEROSOL SOLUTION 1-2 puffs four times a day as needed ALBUTEROL SULFATE 47525283660 No Longer Active Emelyn Norris Active DOXYCYCLINE HYCLATE 100 MG ORAL CAPSULE 1 cap by mouth BID x10 days DOXYCYCLINE HYCLATE 01536545242 No Longer Active Nella Harris APRN Active PREDNISONE 20 MG ORAL TABLET 2 tabs daily for 3 days, 1 tab daily for 3 days, 1/2 tab daily for 2 days PREDNISONE 73962208316 No Longer Active Matthew Rangel MD Active TRAMADOL HCL 50 MG ORAL TABLET 1 po tid with ES Tylenol TRAMADOL HCL 01051593636 No Longer Active Matthew Rangel MD Active GABAPENTIN 300 MG ORAL CAPSULE 1 po q hs for nerve pain GABAPENTIN 00593772348 No Longer Active Matthew Rangel MD Active PREDNISONE 20 MG ORAL TABLET 2 tablets today, then 1 tablet days 2 through 4 PREDNISONE 95050744073 No Longer Active Piotr Daley DO Active AZITHROMYCIN 250 MG ORAL TABLET 2 po qd x 1 day, then 1 po qd x 4 days 07/12 AZITHROMYCIN 31686072665 No Longer Active Piotr Daley DO Active IBUPROFEN 800 MG ORAL TABLET 1 tab every 8 hours as needed 07/12 IBUPROFEN 70517674794 No Longer Active Piotr Daley DO Active LOMOTIL 2.5-0.025 MG ORAL TABLET 1 to 2 four times a day as needed for diarrhea DIPHENOXYLATE-ATROPINE 14393875251 No Longer Active Piotr Daley DO Active WARFARIN SODIUM 4 MG ORAL TABLET 1 tab every evening WARFARIN SODIUM 92814736122 No Longer Active Piotr Daley DO Active PREDNISONE 20 MG ORAL TABLET 1 tablet twice daily for 2 days, then 1 tablet once daily for 2 days PREDNISONE 36803464560 No Longer Active Piotr Daley DO Active PROMETHAZINE HCL 25 MG ORAL TABLET 1 four times a day as needed for nausea/ vomiting PROMETHAZINE HCL 48531834478 No Longer Active Piotr Daley DO Active TUSSIONEX PENNKINETIC ER 10-8 MG/5ML ORAL SUSPENSION EXTENDED RELEASE 5ml po q12hr PRN Cough HYDROCOD POLST-CHLORPHEN POLST 39316979406 No Longer Active Piotr Daley DO Active AZITHROMYCIN 250 MG ORAL TABLET 2 po qd x 1 day, then 1 po qd x 4 days 10/13 AZITHROMYCIN 01622634726 No Longer Active Piotr Daley DO Active AZITHROMYCIN 250 MG ORAL TABLET 2 po qd x 1 day, then 1 po qd x 4 days 05/07 AZITHROMYCIN 55531130576 No Longer Active Piotr Dalye DO Active LISINOPRIL-HYDROCHLOROTHIAZIDE 10-12.5 MG ORAL TABLET 1 tab by mouth daily LISINOPRIL-HYDROCHLOROTHIAZIDE 86798562199 Active Piotr Daley DO Active LISINOPRIL 10 MG ORAL TABLET 1/2-1 tab po every other day LISINOPRIL 03374918174 No Longer Active Piotr Daley DO Active VENTOLIN HFA 108 (90 Base) MCG/ACT INHALATION AEROSOL SOLUTION 2 puffs four times a day PRN cough ALBUTEROL SULFATE 14381194888 No Longer Active Piotr Daley DO Active NYSTATIN-TRIAMCINOLONE 839177-0.1 UNIT/GM-% EXTERNAL CREAM Apply to area BID NYSTATIN-TRIAMCINOLONE 39932451123 No Longer Active Alena Chavira FAMILY PROGRAM SPECIALIST Active PHISOHEX 3 % LIQD Use Directed HEXACHLOROPHENE 90585734660 No Longer Active Sandra [place] Active AZITHROMYCIN 250 MG ORAL TABLET 2 po qd x 1 day, then 1 po qd x 4 days 10/21 AZITHROMYCIN 69576427835 No Longer Active Katrina Rinaldi MD PhD Active AZITHROMYCIN 250 MG ORAL TABLET 2 po qd x 1 day, then 1 po qd x 4 days 10/16 AZITHROMYCIN 21074600882 No Longer Active Piotr Daley DO Active AZITHROMYCIN 500 MG INTRAVENOUS SOLUTION RECONSTITUTED 1 po q day AZITHROMYCIN 37776314690 No Longer Active Piotr Daley DO Active NYSTATIN-TRIAMCINOLONE 479226-8.1 UNIT/GM-% EXTERNAL CREAM apply bid NYSTATIN-TRIAMCINOLONE 61988060110 No Longer Active Piotr Daley DO Active IBUPROFEN 800 MG ORAL TABLET 1 po q 8 hours prn pain sparinly IBUPROFEN 41923911341 No Longer Active Piotr Daley DO Active VITAMIN D3 5000 UNIT ORAL CAPSULE 1 po daily CHOLECALCIFEROL 44258413223 Active Piotr Daley DO Active IBUPROFEN 800 MG ORAL TABLET 1 po q 8 hours prn pain sparinly IBUPROFEN 800 MG ORAL TABLET 555601 IBUPROFEN Inactive NYSTATIN-TRIAMCINOLONE 990421-4.1 UNIT/GM-% EXTERNAL CREAM apply bid NYSTATIN-TRIAMCINOLONE 264366-4.1 UNIT/GM-% EXTERNAL CREAM 5708671 NYSTATIN-TRIAMCINOLONE Inactive AZITHROMYCIN 500 MG INTRAVENOUS SOLUTION RECONSTITUTED 1 po q day AZITHROMYCIN 500 MG INTRAVENOUS SOLUTION RECONSTITUTED 90853281235 AZITHROMYCIN Inactive VENTOLIN HFA 108 (90 Base) MCG/ACT INHALATION AEROSOL SOLUTION 2 puffs four times a day PRN cough VENTOLIN HFA 108 (90 Base) MCG/ ACT INHALATION AEROSOL SOLUTION ALBUTEROL SULFATE Inactive LISINOPRIL 10 MG ORAL TABLET 1/2-1 tab po every other day LISINOPRIL 10 MG ORAL TABLET 677746 LISINOPRIL Inactive TUSSIONEX PENNKINETIC ER 10-8 MG/5ML ORAL SUSPENSION EXTENDED RELEASE 5ml po q12hr PRN Cough TUSSIONEX PENNKINETIC ER 10-8 MG/5ML ORAL SUSPENSION EXTENDED RELEASE HYDROCOD POLST-CHLORPHEN POLST Inactive PROMETHAZINE HCL 25 MG ORAL TABLET 1 four times a day as needed for nausea/ vomiting PROMETHAZINE HCL 25 MG ORAL TABLET 799144 PROMETHAZINE HCL Inactive PREDNISONE 20 MG ORAL TABLET 1 tablet twice daily for 2 days, then 1 tablet once daily for 2 days PREDNISONE 20 MG ORAL TABLET 896843 PREDNISONE Inactive WARFARIN SODIUM 4 MG ORAL TABLET 1 tab every evening WARFARIN SODIUM 4 MG ORAL TABLET 785624 WARFARIN SODIUM Inactive LOMOTIL 2.5-0.025 MG ORAL TABLET 1 to 2 four times a day as needed for diarrhea LOMOTIL 2.5-0.025 MG ORAL TABLET 8306169 DIPHENOXYLATE-ATROPINE Inactive IBUPROFEN 800 MG ORAL TABLET 1 tab every 8 hours as needed 07/12 IBUPROFEN 800 MG ORAL TABLET 640532 IBUPROFEN Inactive PREDNISONE 20 MG ORAL TABLET 2 tablets today, then 1 tablet days 2 through 4 PREDNISONE 20 MG ORAL TABLET 733942 PREDNISONE Inactive GABAPENTIN 300 MG ORAL CAPSULE 1 po q hs for nerve pain GABAPENTIN 300 MG ORAL CAPSULE 515689 GABAPENTIN Inactive TRAMADOL HCL 50 MG ORAL TABLET 1 po tid with ES Tylenol TRAMADOL HCL 50 MG ORAL TABLET 525482 TRAMADOL HCL Inactive PROAIR HFA 108 (90 BASE) MCG/ACT INHALATION AEROSOL SOLUTION 1-2 puffs four times a day as needed PROAIR HFA 108 (90 BASE) MCG/ACT INHALATION AEROSOL SOLUTION ALBUTEROL SULFATE Inactive PREDNISONE 20 MG ORAL TABLET two tabs by mouth today, then one tab by mouth days two and three PREDNISONE 20 MG ORAL TABLET 062788 PREDNISONE Inactive AZITHROMYCIN 250 MG ORAL TABLET 2 po qd x 1 day, then 1 po qd x 4 days 10/16 AZITHROMYCIN 250 MG ORAL TABLET 078417 AZITHROMYCIN Inactive AZITHROMYCIN 250 MG ORAL TABLET 2 po qd x 1 day, then 1 po qd x 4 days 10/21 AZITHROMYCIN 250 MG ORAL TABLET 348606 AZITHROMYCIN Inactive NYSTATIN-TRIAMCINOLONE 808750-0.1 UNIT/GM-% EXTERNAL CREAM Apply to area BID NYSTATIN-TRIAMCINOLONE 111125-1.1 UNIT/GM-% EXTERNAL CREAM 8541612 NYSTATIN-TRIAMCINOLONE Inactive AZITHROMYCIN 250 MG ORAL TABLET 2 po qd x 1 day, then 1 po qd x 4 days 05/07 AZITHROMYCIN 250 MG ORAL TABLET 734261 AZITHROMYCIN Inactive AZITHROMYCIN 250 MG ORAL TABLET 2 po qd x 1 day, then 1 po qd x 4 days 10/13 AZITHROMYCIN 250 MG ORAL TABLET 046933 AZITHROMYCIN Inactive AZITHROMYCIN 250 MG ORAL TABLET 2 po qd x 1 day, then 1 po qd x 4 days 07/12 AZITHROMYCIN 250 MG ORAL TABLET 022554 AZITHROMYCIN Inactive PREDNISONE 20 MG ORAL TABLET 2 tabs daily for 3 days, 1 tab daily for 3 days, 1/2 tab daily for 2 days PREDNISONE 20 MG ORAL TABLET 388139 PREDNISONE Inactive DOXYCYCLINE HYCLATE 100 MG ORAL CAPSULE 1 cap by mouth BID x10 days DOXYCYCLINE HYCLATE 100 MG ORAL CAPSULE 0999837 DOXYCYCLINE HYCLATE Inactive ZITHROMAX 250 MG ORAL TABLET Take two (2 ) tablets day one, then one (1) tablet a day for four (4) more days ZITHROMAX 250 MG ORAL TABLET 918169 AZITHROMYCIN Inactive Advance Directives Directive Description Start [...] % 11.0-15.0 platelet count 172 THOUSAND/UL 10*3/mm3 329-725 6994/04/12 mean platelet volume 8.6 fL 7.5-12.5 Lab Report: Prothrombin Time Hemochron - Coagulation prothrombin time (patient) 33.0 SECS s 18.9-24.9 Encounters Code Encounter Date Provider Facility CPT-88315 Level 3 Est. Patient 12:33:59 COMPUTER PROJECT MANAGER Piotr Katie [facility] CPT-08116 Level 3 Est. Patient 15:56:17 COMPUTER PROJECT MANAGER Piotr Wilson [facility] CPT-27425 Level 3 Est. Patient 10:34:54 COMPUTER PROJECT MANAGER Piotr Wilson [facility] CPT-86050 Level 3 Est. Patient 17:10:19 CDT Nella Harris APRN [facility] CPT-56059 Level 3 Est. Patient 10:48:17 COMPUTER PROJECT MANAGER Matthew Rangel MD [facility] CPT-55997 Level 4 Est. Patient 17:15:07 COMPUTER PROJECT MANAGER Piotr Wilson [facility] CPT-97997 Level 3 Est. Patient 12:46:13 COMPUTER PROJECT MANAGER Piotr Wilson [facility] CPT-05920 Level 3 Est. Patient 15:14:31 COMPUTER PROJECT MANAGER Piotr Daley [facility] CPT-51512 Level 3 Est. Patient 09:20:13 COMPUTER PROJECT MANAGER Piotr Wilson [facility] CPT-08817 Level 3 Est. Patient 09:49:40 CDT Piotr Wilson [facility] CPT-88886 Level 3 Est. Patient 16:28:11 CDT Piotr Daley [facility] CPT-75923 Level 3 Est. Patient 12:41:58 COMPUTER PROJECT MANAGER Piotr Daley [facility] CPT-14916 Level 3 Est. Patient 09:21:24 CDT Piotr Wilson [facility] CPT-36649 Level 3 Est. Patient 09:21:11 CDT Piotr Wilson [facility] CPT-94049 Level 3 Est. Patient 11:16:29 COMPUTER PROJECT MANAGER Piotr Daley [facility] CPT-10753 Level 3 Est. Patient 18:40:19 COMPUTER PROJECT MANAGER Piotr Daley [facility] CPT-43491 Level 3 Est. Patient 19:30:50 CDT Piotr Daley [facility] CPT-37491 Level 3 Est. Patient 22:06:44 CDT Katrina Rinaldi MD [facility] CPT-13092 Level 3 Est. Patient 14:20:00 CDT Piotr Katie Daley [facility] CPT-79327 Level 3 Est. Patient 14:15:22 COMPUTER PROJECT MANAGER Piotr Daley [facility] CPT-72510 Level 3 Est. Patient 20:19:57 COMPUTER PROJECT MANAGER Piotr Daley [facility] CPT-09404 Level 3 Est. Patient 16:44:32 CDT Piotr Daley [facility] CPT-76472 Level 3 Est. Patient 08:48:46 COMPUTER PROJECT MANAGER Piotr Daley [facility] CPT-69080 Level 3 Est. Patient 21:01:21 CDT Piotr Katie Daley [facility] Procedures Code Procedure Name Date Entry Date Standard Description CPT-56916 LS spine comp w obliques - XRAY USE ONLY 14:52:26 COMPUTER PROJECT MANAGER CPT-94678 Chest, 2 views 12:55:58 COMPUTER PROJECT MANAGER CPT-G0439 Subsequent Annual Wellness Exam 10:34:52 COMPUTER PROJECT MANAGER CPT-81958 BMP - LAB USE ONLY 17:19:11 COMPUTER PROJECT MANAGER CPT-12381 PT/INR - LAB USE ONLY 17:19:10 COMPUTER PROJECT MANAGER CPT-22917 Venipuncture Draw Fee 17:19:10 COMPUTER PROJECT MANAGER CPT-94489 PT/INR - LAB USE ONLY 08:12:25 COMPUTER PROJECT MANAGER CPT-06873 Venipuncture Draw Fee 08:12:24 COMPUTER PROJECT MANAGER CPT-99069 Venipuncture Draw Fee 11:31:07 COMPUTER PROJECT MANAGER CPT-18479 TPSA - LAB USE ONLY 11:31:07 COMPUTER PROJECT MANAGER CPT-14110 PT/INR - LAB USE ONLY 11:31:07 COMPUTER PROJECT MANAGER CPT-G0439 Subsequent Annual Wellness Exam 09:59:29 COMPUTER PROJECT MANAGER CPT-71792 Creatinine - LAB USE ONLY 14:37:55 COMPUTER PROJECT MANAGER CPT-04555 PT/INR - LAB USE ONLY 14:37:55 COMPUTER PROJECT MANAGER CPT-43870 Venipuncture Draw Fee 14:37:55 COMPUTER PROJECT MANAGER CPT-81046 LS spine comp w obliques - XRAY USE ONLY 12:59:25 COMPUTER PROJECT MANAGER CPT-96288 PT/INR - LAB USE ONLY 13:49:20 CDT CPT-66797 Venipuncture Draw Fee 13:49:19 CDT CPT-39963 PT/INR - LAB USE ONLY 15:48:49 CDT CPT-50049 Venipuncture Draw Fee 15:48:49 CDT CPT-52917 Venipuncture Draw Fee 11:31:59 CDT CPT-14601 PT/INR - LAB USE ONLY 11:31:59 CDT CPT-19424 Venipuncture Draw Fee 13:29:15 CDT CPT-90834 Thoracolumbar AP/Lat 15:19:19 COMPUTER PROJECT MANAGER CPT-G0438 Initial Annual Wellness Exam 12:18:54 COMPUTER PROJECT MANAGER CPT-49189 Knee 3V 09:57:38 CDT CPT-OV Office Visit 15:45:01 COMPUTER PROJECT MANAGER CPT-72627 Abd compl w upright 17:10:25 CDT
--- OUTSIDE RECORDS SUMMARY | 2018-07-18 09:46 | XMS REPORT | Clinical Summary ---
Author Author Admin, E Organization [employer] Address Unknown Phone Unavailable Allergies, Adverse Reactions, [...] neoplasm of prostate V10.46 Active Alina Meyers [employer]GRAM MAN[employer]URING LEADER Personal history of malignant neoplasm of prostate Coronary artery disease 414.00 Active Alina Luigi [employer] MAN[employer]ING LEADER Coronary atherosclerosis of unspecified type of vessel, big sandy or graft Back pain, thoracic region, left [...] MG TABS 1 tablet daily WARFARIN SODIUM 88121395134 Active Emelyn Goode RPT,RMA Active TRAMADOL HCL 50 MG TABS 1 po tid with ES Tylenol TRAMADOL HCL 44688565114 Active Piotr Daley DO Active PREDNISONE 20 MG TAB 2 tablets today, then 1 tablet days 2 through 4 PREDNISONE 08621275869 No Longer Active Piotr Daley DO Active AZITHROMYCIN 250 MG TABS 2 po qd x 1 day, then 1 po qd x 4 days AZITHROMYCIN 92381228795 No Longer Active Piotr Daley DO Active IBUPROFEN 800 MG TABS 1 tab every 8 hours as needed IBUPROFEN 05439464690 No Longer Active Piotr Daley DO Active LOMOTIL 2.5-0.025 MG TAB 1 to 2 four times a day as needed for diarrhea 10/13 DIPHENOXYLATE-ATROPINE 96883626384 No Longer Active Piotr Daley DO Active WARFARIN SODIUM 4 MG TABS 1 tab every evening WARFARIN SODIUM 15935183896 No Longer Active Piotr Daley DO Active PREDNISONE 20 MG TAB 1 tablet twice daily for 2 days, then 1 tablet once daily for 2 days PREDNISONE 63055034200 No Longer Active Piotr Daley DO Active PROMETHAZINE HCL 25 MG TABS 1 four times a day as needed for nausea/vomiting PROMETHAZINE HCL 27284349722 No Longer Active Piotr Daley DO Active TUSSIONEX PENNKINETIC ER 10-8 MG/5ML LQCR 5ml po q12hr PRN Cough HYDROCOD POLST-CHLORPHEN POLST 03146164639 No Longer Active Piotr W Edi DO Active AZITHROMYCIN 250 MG TABS 2 po qd x 1 day, then 1 po qd x 4 days AZITHROMYCIN 28573286260 No Longer Active Piotr Daley DO Active AZITHROMYCIN 250 MG TABS 2 po qd x 1 day, then 1 po qd x 4 days AZITHROMYCIN 84983535273 No Longer Active Piotr Daley DO Active LISINOPRIL-HYDROCHLOROTHIAZIDE 10-12.5 MG TABS 1 tab by mouth daily LISINOPRIL-HYDROCHLOROTHIAZIDE 65786160069 Active Hilary Ma MA Active LISINOPRIL 10 MG TABS 1/2-1 tab po every other day LISINOPRIL 87480812673 No Longer Active Piotr Daley DO Active VENTOLIN HFA 108 (90 BASE) MCG/ACT AERS 2 puffs four times a day PRN cough ALBUTEROL SULFATE 86904479529 No Longer Active Piotr Daley DO Active NYSTATIN-TRIAMCINOLONE 907446-6.1 UNIT/GM-% CREA Apply to area BID NYSTATIN-TRIAMCINOLONE 38612905598 No Longer Active Alena Oswaldum NUCLEAR PHYSICS TEACHER Active PHISOHEX 3 % LIQD Use Directed HEXACHLOROPHENE 17601778624 No Longer Active Sandra Sterling Active AZITHROMYCIN 250 MG TABS 2 po qd x 1 day, then 1 po qd x 4 days AZITHROMYCIN 38436722960 No Longer Active Katrina Rinaldi MD PhD Active AZITHROMYCIN 250 MG TABS 2 po qd x 1 day, then 1 po qd x 4 days AZITHROMYCIN 28711897010 No Longer Active Piotr Daley DO Active AZITHROMYCIN 500 MG SOLR 1 po q day AZITHROMYCIN 43772080950 No Longer Active Piotr Daley DO Active NYSTATIN-TRIAMCINOLONE 981693-6.1 UNIT/GM-% CREA apply bid 08/19 NYSTATIN-TRIAMCINOLONE 66300042435 No Longer Active Piotr Daley DO Active IBUPROFEN 800 MG TABS 1 po q 8 hours prn pain sparinly IBUPROFEN 55786816282 No Longer Active Piotr Daley DO Active VITAMIN D3 5000 UNIT CAPS 1 po daily CHOLECALCIFEROL 04281020541 Active Piotr Daley DO Active IBUPROFEN 800 MG TABS 1 po q 8 hours prn pain sparinly IBUPROFEN 800 MG TABS 880935 IBUPROFEN Inactive NYSTATIN-TRIAMCINOLONE 685687-6.1 UNIT/GM-% CREA apply bid 08/19 NYSTATIN-TRIAMCINOLONE 355426-2.1 UNIT/GM-% CREA 0360638 NYSTATIN- TRIAMCINOLONE Inactive AZITHROMYCIN 500 MG SOLR 1 po q day AZITHROMYCIN 500 MG SOLR 79897624526 AZITHROMYCIN Inactive VENTOLIN HFA 108 (90 BASE) MCG/ACT AERS 2 puffs four times a day PRN cough VENTOLIN HFA 108 (90 BASE) MCG/ACT AERS ALBUTEROL SULFATE Inactive LISINOPRIL 10 MG TABS 1/2-1 tab po every other day LISINOPRIL 10 MG TABS 251266 LISINOPRIL Inactive TUSSIONEX PENNKINETIC ER 10-8 MG/5ML LQCR 5ml po q12hr PRN Cough TUSSIONEX PENNKINETIC ER 10-8 MG/5ML LQCR HYDROCOD POLST- CHLORPHEN POLST Inactive PROMETHAZINE HCL 25 MG TABS 1 four times a day as needed for nausea/vomiting PROMETHAZINE HCL 25 MG TABS 007715 PROMETHAZINE HCL Inactive PREDNISONE 20 MG TAB 1 tablet twice daily for 2 days, then 1 tablet once daily for 2 days PREDNISONE 20 MG TAB 578457 PREDNISONE Inactive WARFARIN SODIUM 4 MG TABS 1 tab every evening WARFARIN SODIUM 4 MG TABS 780734 WARFARIN SODIUM Inactive LOMOTIL 2.5-0.025 MG TAB 1 to 2 four times a day as needed for diarrhea 10/13 LOMOTIL 2.5-0.025 MG TAB 5083552 DIPHENOXYLATE-ATROPINE Inactive IBUPROFEN 800 MG TABS 1 tab every 8 hours as needed IBUPROFEN 800 MG TABS 433115 IBUPROFEN Inactive PREDNISONE 20 MG TAB 2 tablets today, then 1 tablet days 2 through 4 PREDNISONE 20 MG TAB 711880 PREDNISONE Inactive AZITHROMYCIN 250 MG TABS 2 po qd x 1 day, then 1 po qd x 4 days AZITHROMYCIN 250 MG TABS 1029474 AZITHROMYCIN Inactive AZITHROMYCIN 250 MG TABS 2 po qd x 1 day, then 1 po qd x 4 days AZITHROMYCIN 250 MG TABS 0468745 AZITHROMYCIN Inactive NYSTATIN-TRIAMCINOLONE 152985-9.1 UNIT/GM-% CREA Apply to area BID NYSTATIN-TRIAMCINOLONE 188566-9.1 UNIT/GM-% CREA 2792454 NYSTATIN-TRIAMCINOLONE Inactive AZITHROMYCIN 250 MG TABS 2 po qd x 1 day, then 1 po qd x 4 days AZITHROMYCIN 250 MG TABS 0666796 AZITHROMYCIN Inactive AZITHROMYCIN 250 MG TABS 2 po qd x 1 day, then 1 po qd x 4 days AZITHROMYCIN 250 MG TABS 3062724 AZITHROMYCIN Inactive AZITHROMYCIN 250 MG TABS 2 po qd x 1 day, then 1 po qd x 4 days AZITHROMYCIN 250 MG TABS 5973662 AZITHROMYCIN Inactive Advance Directives Directive Description Start [...] Range Description Lab Report: CBC - Hematology hemoglobin, blood 14.8 g/dL 13.5-17.5 hematocrit, blood 43.6 % 41.0-53.0 mean corpuscular volume, RBC 84 fL 80-97 mean corpuscular hemoglobin, RBC 28.4 pg 27.0-31.2 mean corpuscular hemoglobin concentration, RBC 33.9 G/DL % 31.8- 35.4 red blood cell distribution width 15.0 % 11.6-14.8 platelet count 210 10^3/MM^3 10*3/mm3 320-901 8268/02/09 erythrocyte (RBC) count 5.20 10^6/MM^3 10*6/mm3 4.69-6.13 leukocyte count, blood 5.2 10^3/MM^3 10*3/mm3 4.6-10.2 Lab Report: Comp. Metabolic Panel - Chemistry sodium, serum 141 mmol/L 293-707 5992/06/28 carbon dioxide, venous blood 31.0 mmol/L 21.0-32.0 [...] Prothrombin Time - Coagulation prothrombin time (patient) 18.3 SECS s 11.1-13.4 prothrombin time (patient) 18.9 SECS s 11.1-13.4 international normalized ratio (INR) 2.4 1.0-3.5 prothrombin time (patient) 15.4 SECS s 11.1-13.4 international normalized ratio (INR) 1.7 1.0-3.5 prothrombin time (patient) 22.8 SECS s 11.1-13.4 international normalized ratio (INR) 3.0 1.0-3.5 prothrombin time (patient) 20.8 SECS s 11.1-13.4 international normalized ratio (INR) 2.5 1.0-3.5 prothrombin time (patient) 19.8 SECS s 11.1-13.4 international normalized ratio (INR) 2.3 1.0-3.5 international normalized ratio (INR) 2.3 1.0-3.5 prothrombin time (patient) 18.1 SECS s 11.1-13.4 international normalized ratio (INR) 2.2 1.0-3.5 prothrombin time (patient) 16.6 SECS s 11.1-13.4 international normalized ratio (INR) 1.9 1.0-3.5 Lab Report: Prothrombin Time, Prostatic Specific [...] Negative Encounters Code Encounter Date Provider Facility CPT-40728 Level 3 Est. Patient 15:14:31 SASH REPAIRER Piotr Daley DO [facility] CPT-04996 Level 3 Est. Patient 09:20:13 SASH REPAIRER Piotr Daley [facility] CPT-97500 Level 3 Est. Patient 09:49:40 CDT Piotr Daley [facility] CPT-56507 Level 3 Est. Patient 16:28:11 CDT Piotr Daley [facility] CPT-42465 Level 3 Est. Patient 12:41:58 SASH REPAIRER Piotr Daley [facility] CPT-43823 Level 3 Est. Patient 09:21:24 CDT Piotr Daley [facility] CPT-55083 Level 3 Est. Patient 09:21:11 CDT Piotr Daley [facility] CPT-74410 Level 3 Est. Patient 11:16:29 SASH REPAIRER Piotr Daley [facility] CPT-33081 Level 3 Est. Patient 18:40:19 SASH REPAIRER Piotr Daley [facility] CPT-14984 Level 3 Est. Patient 19:30:50 CDT Piotr Daley [facility] CPT-34955 Level 3 Est. Patient 22:06:44 CDT Katrina Rinaldi MD [facility] CPT-82720 Level 3 Est. Patient 14:20:00 CDT Piotr Daley [facility] CPT-36733 Level 3 Est. Patient 14:15:22 SASH REPAIRER Piotr Daley [facility] CPT-09590 Level 3 Est. Patient 20:19:57 SASH REPAIRER Piotr Daley [facility] CPT-47115 Level 3 Est. Patient 16:44:32 CDT Piotr Daley [facility] CPT-83962 Level 3 Est. Patient 08:48:46 SASH REPAIRER Piotr Daley [facility] CPT-65662 Level 3 Est. Patient 21:01:21 CDT Piotr Daley [facility] Procedures Code Procedure Name Date Entry Date Standard Description CPT-91337 PT/INR - LAB USE ONLY 15:48:49 CDT CPT-43158 Venipuncture Draw Fee 15:48:49 CDT CPT-54365 Venipuncture Draw Fee 11:31:59 CDT CPT-49675 PT/INR - LAB USE ONLY 11:31:59 CDT CPT-93839 Venipuncture Draw Fee 13:29:15 CDT CPT-68518 Thoracolumbar AP/Lat 15:19:19 SASH REPAIRER CPT-G0438 Initial Annual Wellness Exam 12:18:54 SASH REPAIRER CPT-69702 Knee 3V 09:57:38 CDT CPT-OV Office Visit 15:45:01 SASH REPAIRER CPT-84770 Abd compl w upright 17:10:25 CDT
--- OUTSIDE RECORDS SUMMARY | 2018-07-18 09:47 | XMS REPORT | Clinical Summary ---
Author Author Admin, [facility] [email or web address] Address Unknown Phone Unavailable Allergies, Adverse Reactions, [...] neoplasm of prostate V10.46 Active Alina Meyers HAZARDOUS SUBSTANCES ENGINEER Personal history of malignant neoplasm of prostate Coronary artery disease 414.00 Active Alina Meyers APRN Coronary atherosclerosis of unspecified type of vessel, salamatof or graft Back pain, thoracic region, left [...] Knee pain, left ICD-719.46 Inactive Sirisha Chen ELECTRICAL LOGGING OPERATOR Actinic keratoses ICD-702.0 Inactive Sirisha Chen ELECTRICAL LOGGING OPERATOR Back pain, thoracic region, left ICD-724.1 Inactive Piotr Daley DO Thoracic back pain ICD-724.5 Inactive Sirisha Chen ELECTRICAL LOGGING OPERATOR Back pain lumbar ICD-724.2 Inactive Sirisha Chen ELECTRICAL LOGGING OPERATOR Insect bite ICD-919.4 Inactive Sirisha Chen ELECTRICAL LOGGING OPERATOR Pruritus ICD-698.9 Inactive Sirsiha Chen ELECTRICAL LOGGING OPERATOR 04/09 Bronchitis-Acute ICD-466.0 Inactive Sirisha Chen ELECTRICAL LOGGING OPERATOR Dyspnea ICD-786.09 Inactive Sirisha Chen ELECTRICAL LOGGING OPERATOR 05/09 Medication List Medication Instructions Start Date Stop Date Generic Name NDC Status Provider Patient Instruction WARFARIN SODIUM 4 MG ORAL TABLET 1 tablet by mouth daily except 2mg on Saturday and Saturday WARFARIN SODIUM 19503601411 Active Anahy Loja Active MELOXICAM 15 MG ORAL TABLET 1 po q day for pain with food MELOXICAM 35792383314 Active Piotr Daley DO Active PREDNISONE 10 MG ORAL TABLET 1 tablet by mouth daily PREDNISONE 18202574615 No Longer Active Emelyn Norris Active TESSALON PERLES 100 MG ORAL CAPSULE 1-2 tablet by mouth 3 times daily 04/16 BENZONATATE 92133783331 No Longer Active Emelyn Norris Active PREDNISONE 20 MG ORAL TABLET two tabs by mouth today, then one tab by mouth days two and three PREDNISONE 78684079216 No Longer Active Piotr Daley DO Active CYCLOBENZAPRINE HCL 10 MG ORAL TABLET 1 tablet by mouth three times daily as needed for muscle spasm/pain CYCLOBENZAPRINE HCL 83112268775 Active Sirisha Chen LPN Active ZITHROMAX 250 MG ORAL TABLET Take two (2 ) tablets day one, then one (1) tablet a day for four (4) more days AZITHROMYCIN 29327532420 No Longer Active Piotr Daley DO Active PROAIR HFA 108 (90 BASE) MCG/ACT INHALATION AEROSOL SOLUTION 1-2 puffs four times a day as needed ALBUTEROL SULFATE 11725509394 No Longer Active Emelyn Norris Active DOXYCYCLINE HYCLATE 100 MG ORAL CAPSULE 1 cap by mouth BID x10 days DOXYCYCLINE HYCLATE 02361267841 No Longer Active Nella Harris APRN Active PREDNISONE 20 MG ORAL TABLET 2 tabs daily for 3 days, 1 tab daily for 3 days, 1/2 tab daily for 2 days PREDNISONE 86064144155 No Longer Active Matthew Rangel MD Active TRAMADOL HCL 50 MG ORAL TABLET 1 po tid with ES Tylenol TRAMADOL HCL 08597270170 No Longer Active Matthew Rangel MD Active GABAPENTIN 300 MG ORAL CAPSULE 1 po q hs for nerve pain GABAPENTIN 51195221210 No Longer Active Matthew Rangel MD Active PREDNISONE 20 MG ORAL TABLET 2 tablets today, then 1 tablet days 2 through 4 PREDNISONE 81890675829 No Longer Active Piotr Daley DO Active AZITHROMYCIN 250 MG ORAL TABLET 2 po qd x 1 day, then 1 po qd x 4 days 07/12 AZITHROMYCIN 98735459103 No Longer Active Piotr Daley DO Active IBUPROFEN 800 MG ORAL TABLET 1 tab every 8 hours as needed 07/12 IBUPROFEN 65024172046 No Longer Active Piotr Daley DO Active LOMOTIL 2.5-0.025 MG ORAL TABLET 1 to 2 four times a day as needed for diarrhea DIPHENOXYLATE-ATROPINE 22902365582 No Longer Active Piotr Daley DO Active WARFARIN SODIUM 4 MG ORAL TABLET 1 tab every evening WARFARIN SODIUM 87678634499 No Longer Active Piotr Daley DO Active PREDNISONE 20 MG ORAL TABLET 1 tablet twice daily for 2 days, then 1 tablet once daily for 2 days PREDNISONE 80424480152 No Longer Active Piotr Daley DO Active PROMETHAZINE HCL 25 MG ORAL TABLET 1 four times a day as needed for nausea/ vomiting PROMETHAZINE HCL 68721370091 No Longer Active Piotr Daley DO Active TUSSIONEX PENNKINETIC ER 10-8 MG/5ML ORAL SUSPENSION EXTENDED RELEASE 5ml po q12hr PRN Cough HYDROCOD POLST-CHLORPHEN POLST 84091016398 No Longer Active Piotr Daley DO Active AZITHROMYCIN 250 MG ORAL TABLET 2 po qd x 1 day, then 1 po qd x 4 days 10/13 AZITHROMYCIN 16357683006 No Longer Active Piotr Daley DO Active AZITHROMYCIN 250 MG ORAL TABLET 2 po qd x 1 day, then 1 po qd x 4 days 05/07 AZITHROMYCIN 69276413146 No Longer Active Piotr Daley DO Active LISINOPRIL-HYDROCHLOROTHIAZIDE 10-12.5 MG ORAL TABLET 1 tab by mouth daily LISINOPRIL-HYDROCHLOROTHIAZIDE 02335267856 Active Piotr Daley DO Active LISINOPRIL 10 MG ORAL TABLET 1/2-1 tab po every other day LISINOPRIL 87601638752 No Longer Active Piotr Daley DO Active VENTOLIN HFA 108 (90 Base) MCG/ACT INHALATION AEROSOL SOLUTION 2 puffs four times a day PRN cough ALBUTEROL SULFATE 41023326627 No Longer Active Piotr Daley DO Active NYSTATIN-TRIAMCINOLONE 880591-3.1 UNIT/GM-% EXTERNAL CREAM Apply to area BID NYSTATIN-TRIAMCINOLONE 93336433630 No Longer Active Alena Chavira ELECTRICAL LOGGING OPERATOR Active PHISOHEX 3 % LIQD Use Directed HEXACHLOROPHENE 98092280574 No Longer Active Sandra Wilkeson Active AZITHROMYCIN 250 MG ORAL TABLET 2 po qd x 1 day, then 1 po qd x 4 days 10/21 AZITHROMYCIN 21953212400 No Longer Active Katrina Rinaldi MD PhD Active AZITHROMYCIN 250 MG ORAL TABLET 2 po qd x 1 day, then 1 po qd x 4 days 10/16 AZITHROMYCIN 54355802683 No Longer Active Piotr Daley DO Active AZITHROMYCIN 500 MG INTRAVENOUS SOLUTION RECONSTITUTED 1 po q day AZITHROMYCIN 39636685404 No Longer Active Piotr Daley DO Active NYSTATIN-TRIAMCINOLONE 240513-1.1 UNIT/GM-% EXTERNAL CREAM apply bid NYSTATIN-TRIAMCINOLONE 23665228964 No Longer Active Piotr Daley DO Active IBUPROFEN 800 MG ORAL TABLET 1 po q 8 hours prn pain sparinly IBUPROFEN 92684947453 No Longer Active Piotr Daley DO Active VITAMIN D3 5000 UNIT ORAL CAPSULE 1 po daily CHOLECALCIFEROL 51523718524 Active Piotr Daley DO Active IBUPROFEN 800 MG ORAL TABLET 1 po q 8 hours prn pain sparinly IBUPROFEN 800 MG ORAL TABLET 328319 IBUPROFEN Inactive NYSTATIN-TRIAMCINOLONE 726012-2.1 UNIT/GM-% EXTERNAL CREAM apply bid NYSTATIN-TRIAMCINOLONE 051167-3.1 UNIT/GM-% EXTERNAL CREAM 4341080 NYSTATIN-TRIAMCINOLONE Inactive AZITHROMYCIN 500 MG INTRAVENOUS SOLUTION RECONSTITUTED 1 po q day AZITHROMYCIN 500 MG INTRAVENOUS SOLUTION RECONSTITUTED 79628973556 AZITHROMYCIN Inactive VENTOLIN HFA 108 (90 Base) MCG/ACT INHALATION AEROSOL SOLUTION 2 puffs four times a day PRN cough VENTOLIN HFA 108 (90 Base) MCG/ ACT INHALATION AEROSOL SOLUTION ALBUTEROL SULFATE Inactive LISINOPRIL 10 MG ORAL TABLET 1/2-1 tab po every other day LISINOPRIL 10 MG ORAL TABLET 689529 LISINOPRIL Inactive TUSSIONEX PENNKINETIC ER 10-8 MG/5ML ORAL SUSPENSION EXTENDED RELEASE 5ml po q12hr PRN Cough TUSSIONEX PENNKINETIC ER 10-8 MG/5ML ORAL SUSPENSION EXTENDED RELEASE HYDROCOD POLST-CHLORPHEN POLST Inactive PROMETHAZINE HCL 25 MG ORAL TABLET 1 four times a day as needed for nausea/ vomiting PROMETHAZINE HCL 25 MG ORAL TABLET 976053 PROMETHAZINE HCL Inactive PREDNISONE 20 MG ORAL TABLET 1 tablet twice daily for 2 days, then 1 tablet once daily for 2 days PREDNISONE 20 MG ORAL TABLET 103470 PREDNISONE Inactive WARFARIN SODIUM 4 MG ORAL TABLET 1 tab every evening WARFARIN SODIUM 4 MG ORAL TABLET 142661 WARFARIN SODIUM Inactive LOMOTIL 2.5-0.025 MG ORAL TABLET 1 to 2 four times a day as needed for diarrhea LOMOTIL 2.5-0.025 MG ORAL TABLET 6127601 DIPHENOXYLATE-ATROPINE Inactive IBUPROFEN 800 MG ORAL TABLET 1 tab every 8 hours as needed 07/12 IBUPROFEN 800 MG ORAL TABLET 554173 IBUPROFEN Inactive PREDNISONE 20 MG ORAL TABLET 2 tablets today, then 1 tablet days 2 through 4 PREDNISONE 20 MG ORAL TABLET 432056 PREDNISONE Inactive GABAPENTIN 300 MG ORAL CAPSULE 1 po q hs for nerve pain GABAPENTIN 300 MG ORAL CAPSULE 863061 GABAPENTIN Inactive TRAMADOL HCL 50 MG ORAL TABLET 1 po tid with ES Tylenol TRAMADOL HCL 50 MG ORAL TABLET 443064 TRAMADOL HCL Inactive PROAIR HFA 108 (90 BASE) MCG/ACT INHALATION AEROSOL SOLUTION 1-2 puffs four times a day as needed PROAIR HFA 108 (90 BASE) MCG/ACT INHALATION AEROSOL SOLUTION ALBUTEROL SULFATE Inactive PREDNISONE 20 MG ORAL TABLET two tabs by mouth today, then one tab by mouth days two and three PREDNISONE 20 MG ORAL TABLET 975796 PREDNISONE Inactive TESSALON PERLES 100 MG ORAL CAPSULE 1-2 tablet by mouth 3 times daily 04/16 TESSALON PERLES 100 MG ORAL CAPSULE 079641 BENZONATATE Inactive PREDNISONE 10 MG ORAL TABLET 1 tablet by mouth daily PREDNISONE 10 MG ORAL TABLET 145980 PREDNISONE Inactive AZITHROMYCIN 250 MG ORAL TABLET 2 po qd x 1 day, then 1 po qd x 4 days 10/16 AZITHROMYCIN 250 MG ORAL TABLET 192226 AZITHROMYCIN Inactive AZITHROMYCIN 250 MG ORAL TABLET 2 po qd x 1 day, then 1 po qd x 4 days 10/21 AZITHROMYCIN 250 MG ORAL TABLET 412501 AZITHROMYCIN Inactive NYSTATIN-TRIAMCINOLONE 488402-2.1 UNIT/GM-% EXTERNAL CREAM Apply to area BID NYSTATIN-TRIAMCINOLONE 881762-5.1 UNIT/GM-% EXTERNAL CREAM 2314785 NYSTATIN-TRIAMCINOLONE Inactive AZITHROMYCIN 250 MG ORAL TABLET 2 po qd x 1 day, then 1 po qd x 4 days 05/07 AZITHROMYCIN 250 MG ORAL TABLET 935468 AZITHROMYCIN Inactive AZITHROMYCIN 250 MG ORAL TABLET 2 po qd x 1 day, then 1 po qd x 4 days 10/13 AZITHROMYCIN 250 MG ORAL TABLET 464166 AZITHROMYCIN Inactive AZITHROMYCIN 250 MG ORAL TABLET 2 po qd x 1 day, then 1 po qd x 4 days 07/12 AZITHROMYCIN 250 MG ORAL TABLET 308951 AZITHROMYCIN Inactive PREDNISONE 20 MG ORAL TABLET 2 tabs daily for 3 days, 1 tab daily for 3 days, 1/2 tab daily for 2 days PREDNISONE 20 MG ORAL TABLET 725425 PREDNISONE Inactive DOXYCYCLINE HYCLATE 100 MG ORAL CAPSULE 1 cap by mouth BID x10 days DOXYCYCLINE HYCLATE 100 MG ORAL CAPSULE 2628817 DOXYCYCLINE HYCLATE Inactive ZITHROMAX 250 MG ORAL TABLET Take two (2 ) tablets day one, then one (1) tablet a day for four (4) more days ZITHROMAX 250 MG ORAL TABLET 880639 AZITHROMYCIN Inactive Advance Directives Directive Description Start [...] % 11.0-15.0 platelet count 172 THOUSAND/UL 10*3/mm3 707-981 9845/04/12 mean platelet volume 8.6 fL 7.5-12.5 Lab Report: Prothrombin Time Hemochron - Coagulation prothrombin time (patient) 33.0 SECS s 18.9-24.9 Encounters Code Encounter Date Provider Facility CPT-88111 Level 3 Est. Patient 15:59:25 SR. SOCIAL MEDIA & MOBILE MANAGER Piotr Daley [facility] CPT-43827 Level 3 Est. Patient 12:33:59 SR. SOCIAL MEDIA & MOBILE MANAGER Piotr Daley [facility] CPT-13315 Level 3 Est. Patient 15:56:17 SR. SOCIAL MEDIA & MOBILE MANAGER Piotr Daley [facility] CPT-65592 Level 3 Est. Patient 10:34:54 SR. SOCIAL MEDIA & MOBILE MANAGER Piotr Daley [facility] CPT-63340 Level 3 Est. Patient 17:10:19 CDT Nella Harris APRN [facility] CPT-18703 Level 3 Est. Patient 10:48:17 SR. SOCIAL MEDIA & MOBILE MANAGER Matthew Rangel MD [facility] CPT-60434 Level 4 Est. Patient 17:15:07 SR. SOCIAL MEDIA & MOBILE MANAGER Piotr Daley [facility] CPT-89955 Level 3 Est. Patient 12:46:13 SR. SOCIAL MEDIA & MOBILE MANAGER Piotr Daley [facility] CPT-78624 Level 3 Est. Patient 15:14:31 SR. SOCIAL MEDIA & MOBILE MANAGER Piotr Daley [facility] CPT-55245 Level 3 Est. Patient 09:20:13 SR. SOCIAL MEDIA & MOBILE MANAGER Piotr Daley [facility] CPT-15214 Level 3 Est. Patient 09:49:40 CDT Piotr Daley [facility] CPT-25402 Level 3 Est. Patient 16:28:11 CDT Piotr Daley [facility] CPT-37647 Level 3 Est. Patient 12:41:58 SR. SOCIAL MEDIA & MOBILE MANAGER Piotr Daley [facility] CPT-01601 Level 3 Est. Patient 09:21:24 CDT Piotr Daley [facility] CPT-53196 Level 3 Est. Patient 09:21:11 CDT Piotr Daley [facility] CPT-64058 Level 3 Est. Patient 11:16:29 SR. SOCIAL MEDIA & MOBILE MANAGER Piotr Daley [facility] CPT-83732 Level 3 Est. Patient 18:40:19 SR. SOCIAL MEDIA & MOBILE MANAGER Piotr Daley [facility] CPT-76567 Level 3 Est. Patient 19:30:50 CDT Piotr Daley [facility] CPT-81362 Level 3 Est. Patient 22:06:44 CDT Katrina Rinaldi MD [facility] CPT-42520 Level 3 Est. Patient 14:20:00 CDT Piotr Daley [facility] CPT-83385 Level 3 Est. Patient 14:15:22 SR. SOCIAL MEDIA & MOBILE MANAGER Piotr Daley [facility] CPT-02610 Level 3 Est. Patient 20:19:57 SR. SOCIAL MEDIA & MOBILE MANAGER Piotr Daley [facility] CPT-35179 Level 3 Est. Patient 16:44:32 CDT Piotr Daley [facility] CPT-16045 Level 3 Est. Patient 08:48:46 SR. SOCIAL MEDIA & MOBILE MANAGER Piotr Daley [facility] CPT-13194 Level 3 Est. Patient 21:01:21 CDT Piotr Daley DO [facility] Procedures Code Procedure Name Date Entry Date Standard Description CPT-03379 Sacroiliac jt < 3V - XRAY USE ONLY 16:45:19 SR. SOCIAL MEDIA & MOBILE MANAGER 05/09 CPT-42868 LS spine comp w obliques - XRAY USE ONLY 14:52:26 SR. SOCIAL MEDIA & MOBILE MANAGER CPT-72880 Chest, 2 views 12:55:58 SR. SOCIAL MEDIA & MOBILE MANAGER CPT-G0439 Subsequent Annual Wellness Exam 10:34:52 SR. SOCIAL MEDIA & MOBILE MANAGER CPT-82220 BMP - LAB USE ONLY 17:19:11 SR. SOCIAL MEDIA & MOBILE MANAGER CPT-66736 PT/INR - LAB USE ONLY 17:19:10 SR. SOCIAL MEDIA & MOBILE MANAGER CPT-97025 Venipuncture Draw Fee 17:19:10 SR. SOCIAL MEDIA & MOBILE MANAGER CPT-95087 PT/INR - LAB USE ONLY 08:12:25 SR. SOCIAL MEDIA & MOBILE MANAGER CPT-81065 Venipuncture Draw Fee 08:12:24 SR. SOCIAL MEDIA & MOBILE MANAGER CPT-83485 Venipuncture Draw Fee 11:31:07 SR. SOCIAL MEDIA & MOBILE MANAGER CPT-59349 TPSA - LAB USE ONLY 11:31:07 SR. SOCIAL MEDIA & MOBILE MANAGER CPT-69922 PT/INR - LAB USE ONLY 11:31:07 SR. SOCIAL MEDIA & MOBILE MANAGER CPT-G0439 Subsequent Annual Wellness Exam 09:59:29 SR. SOCIAL MEDIA & MOBILE MANAGER CPT-85321 Creatinine - LAB USE ONLY 14:37:55 SR. SOCIAL MEDIA & MOBILE MANAGER CPT-19967 PT/INR - LAB USE ONLY 14:37:55 SR. SOCIAL MEDIA & MOBILE MANAGER CPT-29474 Venipuncture Draw Fee 14:37:55 SR. SOCIAL MEDIA & MOBILE MANAGER CPT-41340 LS spine comp w obliques - XRAY USE ONLY 12:59:25 SR. SOCIAL MEDIA & MOBILE MANAGER CPT-67360 PT/INR - LAB USE ONLY 13:49:20 CDT CPT-61815 Venipuncture Draw Fee 13:49:19 CDT CPT-90639 PT/INR - LAB USE ONLY 15:48:49 CDT CPT-29157 Venipuncture Draw Fee 15:48:49 CDT CPT-57294 Venipuncture Draw Fee 11:31:59 CDT CPT-11192 PT/INR - LAB USE ONLY 11:31:59 CDT CPT-14164 Venipuncture Draw Fee 13:29:15 CDT CPT-57502 Thoracolumbar AP/Lat 15:19:19 SR. SOCIAL MEDIA & MOBILE MANAGER CPT-G0438 Initial Annual Wellness Exam 12:18:54 SR. SOCIAL MEDIA & MOBILE MANAGER CPT-25854 Knee 3V 09:57:38 CDT CPT-OV Office Visit 15:45:01 SR. SOCIAL MEDIA & MOBILE MANAGER CPT-02882 Abd compl w upright 17:10:25 CDT
--- OUTSIDE RECORDS SUMMARY | 2018-07-18 09:48 | XMS REPORT | Clinical Summary ---
Author Author Admin, Bita Organization [employer] Address Unknown Phone Unavailable Allergies, Adverse [...] Coronary atherosclerosis of unspecified type of vessel, tatitlek or graft Back pain, thoracic region, left [...] PhD Seborrheic keratosis ICD-702.19 Inactive Sirisha Chen [employer]ANCE SALES PROFESSIONAL Bronchitis-Acute ICD-466.0 Inactive Piotr Daley DO Leg pain, right ICD-729.5 Inactive Sirisha Chne [employer]ANCE SALES PROFESSIONAL Right leg pain ICD-729.5 Inactive Sirisha Chen [employer]URANCE SALES PROFESSIONAL Bronchitis-Acute ICD-466.0 Inactive Sirisha Chen INSURANCE SALES PROFESSIONAL Knee pain, left ICD-719.46 Inactive Sirisha Chen [employer]URANCE SALES PROFESSIONAL Actinic keratoses ICD-702.0 Inactive Sirisha Chen [employer]ANCE SALES PROFESSIONAL Back pain, thoracic region, left ICD-724.1 Inactive Piotr Daley DO Thoracic back pain ICD-724.5 Inactive Sirisha Chen [employer]ANCE SALES PROFESSIONAL Back pain lumbar ICD-724.2 Inactive Sirisha Chen [employer] SALES PROFESSIONAL Insect bite ICD-919.4 Inactive Sirisha Chen [employer]ANCE SALES PROFESSIONAL Pruritus ICD-698.9 Inactive Sirisha Chen INSURANCE SALES PROFESSIONAL 04/09 DEEP VENOUS THROMBOPHLEBITIS, LEG, 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 Inactive Sirisha Chen [employer]ANCE SALES PROFESSIONAL DEEP VENOUS THROMBOPHLEBITIS, LEG, 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 Inactive Sirisha Chen [employer]ANCE SALES PROFESSIONAL Bronchitis-Acute ICD-466.0 Inactive Sirisha Chen [employer]ANCE SALES PROFESSIONAL Dyspnea ICD-786.09 Inactive Sirisha Chen [employer]ANCE SALES PROFESSIONAL 05/09 Medication List Medication Instructions Start Date Stop Date Generic Name NDC Status Provider Patient Instruction WARFARIN SODIUM 4 MG ORAL TABLET 1 tablet by mouth daily WARFARIN SODIUM 44561945859 Active Anahy Loja Active MELOXICAM 15 MG ORAL TABLET 1 po q day for pain with food MELOXICAM 33141846028 Active Piotr Daley DO Active PREDNISONE 10 MG ORAL TABLET 1 tablet by mouth daily PREDNISONE 43570819674 No Longer Active Emelyn Norris Active TESSALON PERLES 100 MG ORAL CAPSULE 1-2 tablet by mouth 3 times daily 04/16 BENZONATATE 39536396634 No Longer Active Emelyn Norrsi Active PREDNISONE 20 MG ORAL TABLET two tabs by mouth today, then one tab by mouth days two and three PREDNISONE 76552242977 No Longer Active Piotr Daley DO Active CYCLOBENZAPRINE HCL 10 MG ORAL TABLET 1 tablet by mouth three times daily as needed for muscle spasm/pain CYCLOBENZAPRINE HCL 06735273921 Active Sirisha Gustavo INSURANCE SALES PROFESSIONAL Active ZITHROMAX 250 MG ORAL TABLET Take two (2 ) tablets day one, then one (1) tablet a day for four (4) more days AZITHROMYCIN 48141784093 No Longer Active Piotr Daley DO Active PROAIR HFA 108 (90 BASE) MCG/ACT INHALATION AEROSOL SOLUTION 1-2 puffs four times a day as needed ALBUTEROL SULFATE 22971071085 No Longer Active Emelyn Norris Active DOXYCYCLINE HYCLATE 100 MG ORAL CAPSULE 1 cap by mouth BID x10 days DOXYCYCLINE HYCLATE 45070282720 No Longer Active Nella Harris APRN Active PREDNISONE 20 MG ORAL TABLET 2 tabs daily for 3 days, 1 tab daily for 3 days, 1/2 tab daily for 2 days PREDNISONE 01212842010 No Longer Active Matthew Rangel MD Active TRAMADOL HCL 50 MG ORAL TABLET 1 po tid with ES Tylenol TRAMADOL HCL 50668987561 No Longer Active Matthew Rangel MD Active GABAPENTIN 300 MG ORAL CAPSULE 1 po q hs for nerve pain GABAPENTIN 74134290451 No Longer Active Matthew Rangel MD Active PREDNISONE 20 MG ORAL TABLET 2 tablets today, then 1 tablet days 2 through 4 PREDNISONE 24388687922 No Longer Active Piotr Daley DO Active AZITHROMYCIN 250 MG ORAL TABLET 2 po qd x 1 day, then 1 po qd x 4 days 07/12 AZITHROMYCIN 29295550572 No Longer Active Piotr Daley DO Active IBUPROFEN 800 MG ORAL TABLET 1 tab every 8 hours as needed 07/12 IBUPROFEN 71404399472 No Longer Active Piotr Daley DO Active LOMOTIL 2.5-0.025 MG ORAL TABLET 1 to 2 four times a day as needed for diarrhea DIPHENOXYLATE-ATROPINE 55953560515 No Longer Active Piotr W Edi DO Active WARFARIN SODIUM 4 MG ORAL TABLET 1 tab every evening WARFARIN SODIUM 45524331505 No Longer Active Piotr Daley DO Active PREDNISONE 20 MG ORAL TABLET 1 tablet twice daily for 2 days, then 1 tablet once daily for 2 days PREDNISONE 80355762186 No Longer Active Piotr Daley DO Active PROMETHAZINE HCL 25 MG ORAL TABLET 1 four times a day as needed for nausea/ vomiting PROMETHAZINE HCL 01972363320 No Longer Active Piotr Daley DO Active TUSSIONEX PENNKINETIC ER 10-8 MG/5ML ORAL SUSPENSION EXTENDED RELEASE 5ml po q12hr PRN Cough HYDROCOD POLST-CHLORPHEN POLST 08152327053 No Longer Active Piotr Daley DO Active AZITHROMYCIN 250 MG ORAL TABLET 2 po qd x 1 day, then 1 po qd x 4 days 10/13 AZITHROMYCIN 73443416103 No Longer Active Piotr Daley DO Active AZITHROMYCIN 250 MG ORAL TABLET 2 po qd x 1 day, then 1 po qd x 4 days 05/07 AZITHROMYCIN 68996438851 No Longer Active Piotr Daley DO Active LISINOPRIL-HYDROCHLOROTHIAZIDE 10-12.5 MG ORAL TABLET 1 tab by mouth daily LISINOPRIL-HYDROCHLOROTHIAZIDE 38611735902 Active Piotr Daley DO Active LISINOPRIL 10 MG ORAL TABLET 1/2-1 tab po every other day LISINOPRIL 60226508534 No Longer Active Piotr Daley DO Active VENTOLIN HFA 108 (90 Base) MCG/ACT INHALATION AEROSOL SOLUTION 2 puffs four times a day PRN cough ALBUTEROL SULFATE 16254816139 No Longer Active Piotr Daley DO Active NYSTATIN-TRIAMCINOLONE 277986-6.1 UNIT/GM-% EXTERNAL CREAM Apply to area BID NYSTATIN-TRIAMCINOLONE 45479224302 No Longer Active Alena Chavira INS[employer]ANCE SALES PROFESSIONAL Active PHISOHEX 3 % LIQD Use Directed HEXACHLOROPHENE 33031132772 No Longer Active Sandra Dannemora Active AZITHROMYCIN 250 MG ORAL TABLET 2 po qd x 1 day, then 1 po qd x 4 days 10/21 AZITHROMYCIN 13250820295 No Longer Active Katrina Rinaldi MD PhD Active AZITHROMYCIN 250 MG ORAL TABLET 2 po qd x 1 day, then 1 po qd x 4 days 10/16 AZITHROMYCIN 02429615049 No Longer Active Piotr Daley DO Active AZITHROMYCIN 500 MG INTRAVENOUS SOLUTION RECONSTITUTED 1 po q day AZITHROMYCIN 34567585876 No Longer Active Piotr Daley DO Active NYSTATIN-TRIAMCINOLONE 159191-2.1 UNIT/GM-% EXTERNAL CREAM apply bid NYSTATIN-TRIAMCINOLONE 47247355496 No Longer Active Piotr Daley DO Active IBUPROFEN 800 MG ORAL TABLET 1 po q 8 hours prn pain sparinly IBUPROFEN 75412982030 No Longer Active Piotr Daley DO Active VITAMIN D3 5000 UNIT ORAL CAPSULE 1 po daily CHOLECALCIFEROL 25239179297 Active Piotr Daley DO Active IBUPROFEN 800 MG ORAL TABLET 1 po q 8 hours prn pain sparinly IBUPROFEN 800 MG ORAL TABLET 333421 IBUPROFEN Inactive NYSTATIN-TRIAMCINOLONE 706295-6.1 UNIT/GM-% EXTERNAL CREAM apply bid NYSTATIN-TRIAMCINOLONE 826525-3.1 UNIT/GM-% EXTERNAL CREAM 7196168 NYSTATIN-TRIAMCINOLONE Inactive AZITHROMYCIN 500 MG INTRAVENOUS SOLUTION RECONSTITUTED 1 po q day AZITHROMYCIN 500 MG INTRAVENOUS SOLUTION RECONSTITUTED 67202069688 AZITHROMYCIN Inactive VENTOLIN HFA 108 (90 Base) MCG/ACT INHALATION AEROSOL SOLUTION 2 puffs four times a day PRN cough VENTOLIN HFA 108 (90 Base) MCG/ ACT INHALATION AEROSOL SOLUTION ALBUTEROL SULFATE Inactive LISINOPRIL 10 MG ORAL TABLET 1/2-1 tab po every other day LISINOPRIL 10 MG ORAL TABLET 551194 LISINOPRIL Inactive TUSSIONEX PENNKINETIC ER 10-8 MG/5ML ORAL SUSPENSION EXTENDED RELEASE 5ml po q12hr PRN Cough TUSSIONEX PENNKINETIC ER 10-8 MG/5ML ORAL SUSPENSION EXTENDED RELEASE HYDROCOD POLST-CHLORPHEN POLST Inactive PROMETHAZINE HCL 25 MG ORAL TABLET 1 four times a day as needed for nausea/ vomiting PROMETHAZINE HCL 25 MG ORAL TABLET 728820 PROMETHAZINE HCL Inactive PREDNISONE 20 MG ORAL TABLET 1 tablet twice daily for 2 days, then 1 tablet once daily for 2 days PREDNISONE 20 MG ORAL TABLET 092983 PREDNISONE Inactive WARFARIN SODIUM 4 MG ORAL TABLET 1 tab every evening WARFARIN SODIUM 4 MG ORAL TABLET 148654 WARFARIN SODIUM Inactive LOMOTIL 2.5-0.025 MG ORAL TABLET 1 to 2 four times a day as needed for diarrhea LOMOTIL 2.5-0.025 MG ORAL TABLET 7438045 DIPHENOXYLATE-ATROPINE Inactive IBUPROFEN 800 MG ORAL TABLET 1 tab every 8 hours as needed 07/12 IBUPROFEN 800 MG ORAL TABLET 502431 IBUPROFEN Inactive PREDNISONE 20 MG ORAL TABLET 2 tablets today, then 1 tablet days 2 through 4 PREDNISONE 20 MG ORAL TABLET 784684 PREDNISONE Inactive GABAPENTIN 300 MG ORAL CAPSULE 1 po q hs for nerve pain GABAPENTIN 300 MG ORAL CAPSULE 875418 GABAPENTIN Inactive TRAMADOL HCL 50 MG ORAL TABLET 1 po tid with ES Tylenol TRAMADOL HCL 50 MG ORAL TABLET 931540 TRAMADOL HCL Inactive PROAIR HFA 108 (90 BASE) MCG/ACT INHALATION AEROSOL SOLUTION 1-2 puffs four times a day as needed PROAIR HFA 108 (90 BASE) MCG/ACT INHALATION AEROSOL SOLUTION ALBUTEROL SULFATE Inactive PREDNISONE 20 MG ORAL TABLET two tabs by mouth today, then one tab by mouth days two and three PREDNISONE 20 MG ORAL TABLET 126190 PREDNISONE Inactive TESSALON PERLES 100 MG ORAL CAPSULE 1-2 tablet by mouth 3 times daily 04/16 TESSALON PERLES 100 MG ORAL CAPSULE 700184 BENZONATATE Inactive PREDNISONE 10 MG ORAL TABLET 1 tablet by mouth daily PREDNISONE 10 MG ORAL TABLET 474522 PREDNISONE Inactive AZITHROMYCIN 250 MG ORAL TABLET 2 po qd x 1 day, then 1 po qd x 4 days 10/16 AZITHROMYCIN 250 MG ORAL TABLET 504801 AZITHROMYCIN Inactive AZITHROMYCIN 250 MG ORAL TABLET 2 po qd x 1 day, then 1 po qd x 4 days 10/21 AZITHROMYCIN 250 MG ORAL TABLET 777462 AZITHROMYCIN Inactive NYSTATIN-TRIAMCINOLONE 959514-8.1 UNIT/GM-% EXTERNAL CREAM Apply to area BID NYSTATIN-TRIAMCINOLONE 070519-0.1 UNIT/GM-% EXTERNAL CREAM 8803022 NYSTATIN-TRIAMCINOLONE Inactive AZITHROMYCIN 250 MG ORAL TABLET 2 po qd x 1 day, then 1 po qd x 4 days 05/07 AZITHROMYCIN 250 MG ORAL TABLET 413452 AZITHROMYCIN Inactive AZITHROMYCIN 250 MG ORAL TABLET 2 po qd x 1 day, then 1 po qd x 4 days 10/13 AZITHROMYCIN 250 MG ORAL TABLET 586954 AZITHROMYCIN Inactive AZITHROMYCIN 250 MG ORAL TABLET 2 po qd x 1 day, then 1 po qd x 4 days 07/12 AZITHROMYCIN 250 MG ORAL TABLET 156890 AZITHROMYCIN Inactive PREDNISONE 20 MG ORAL TABLET 2 tabs daily for 3 days, 1 tab daily for 3 days, 1/2 tab daily for 2 days PREDNISONE 20 MG ORAL TABLET 803249 PREDNISONE Inactive DOXYCYCLINE HYCLATE 100 MG ORAL CAPSULE 1 cap by mouth BID x10 days DOXYCYCLINE HYCLATE 100 MG ORAL CAPSULE 3245086 DOXYCYCLINE HYCLATE Inactive ZITHROMAX 250 MG ORAL TABLET Take two (2 ) tablets day one, then one (1) tablet a day for four (4) more days ZITHROMAX 250 MG ORAL TABLET 199851 AZITHROMYCIN Inactive Advance Directives Directive Description Start [...] 18.9-24.9 Encounters Code Encounter Date Provider Facility CPT-71232 Level 3 Est. Patient 15:59:25 COSTUME MISTRESS Piotr Katie Edi [facility] CPT-19731 Level 3 Est. Patient 12:33:59 COSTUME MISTRESS Piotr Daley [facility] CPT-75091 Level 3 Est. Patient 15:56:17 COSTUME MISTRESS Piotr Katie Edi [facility] CPT-29555 Level 3 Est. Patient 10:34:54 COSTUME MISTRESS Piotr Daley [facility] CPT-71679 Level 3 Est. Patient 17:10:19 CDT Nella Harris APRN [facility] CPT-36323 Level 3 Est. Patient 10:48:17 COSTUME MISTRESS Matthew Rangel MD [facility] CPT-54790 Level 4 Est. Patient 17:15:07 COSTUME MISTRESS Piotr Katie Edi [facility] CPT-65823 Level 3 Est. Patient 12:46:13 COSTUME MISTRESS Piotr Katie Edi [facility] CPT-54775 Level 3 Est. Patient 15:14:31 COSTUME MISTRESS Piotr Katie Edi [facility] CPT-30626 Level 3 Est. Patient 09:20:13 COSTUME MISTRESS Piotr Wilson Edi [facility] CPT-87255 Level 3 Est. Patient 09:49:40 CDT Piotr Wilson [facility] CPT-52588 Level 3 Est. Patient 16:28:11 CDT Piotr Wilson Edi [facility] CPT-92045 Level 3 Est. Patient 12:41:58 COSTUME MISTRESS Piotr Daley [facility] CPT-08323 Level 3 Est. Patient 09:21:24 CDT Piotr Wilson [facility] CPT-13786 Level 3 Est. Patient 09:21:11 CDT Piotr Wilson [facility] CPT-98202 Level 3 Est. Patient 11:16:29 COSTUME MISTRESS Piotr Daley [facility] CPT-65242 Level 3 Est. Patient 18:40:19 COSTUME MISTRESS Piotr Daley [facility] CPT-46561 Level 3 Est. Patient 19:30:50 CDT Piotr Daley [facility] CPT-40520 Level 3 Est. Patient 22:06:44 CDT Katrina Rinaldi MD [facility] CPT-91739 Level 3 Est. Patient 14:20:00 CDT Piotr Daley [facility] CPT-79858 Level 3 Est. Patient 14:15:22 COSTUME MISTRESS Piotr Daley [facility] CPT-99484 Level 3 Est. Patient 20:19:57 COSTUME MISTRESS Piotr Daley [facility] CPT-45784 Level 3 Est. Patient 16:44:32 CDT Piotr Daley [facility] CPT-63205 Level 3 Est. Patient 08:48:46 COSTUME MISTRESS Piotr Daley [facility] CPT-83676 Level 3 Est. Patient 21:01:21 CDT Piotr Daley [facility] Procedures Code Procedure Name Date Entry Date Standard Description CPT-98909 Sacroiliac jt < 3V - XRAY USE ONLY 16:45:19 COSTUME MISTRESS 05/09 CPT-11878 LS spine comp w obliques - XRAY USE ONLY 14:52:26 COSTUME MISTRESS CPT-31511 Chest, 2 views 12:55:58 COSTUME MISTRESS CPT-G0439 [facility] Annual Wellness Exam 10:34:52 COSTUME MISTRESS CPT-52634 BMP - LAB USE ONLY 17:19:11 COSTUME MISTRESS CPT-68052 PT/INR - LAB USE ONLY 17:19:10 COSTUME MISTRESS CPT-73483 Venipuncture Draw Fee 17:19:10 COSTUME MISTRESS CPT-05667 PT/INR - LAB USE ONLY 08:12:25 COSTUME MISTRESS CPT-82958 Venipuncture Draw Fee 08:12:24 COSTUME MISTRESS CPT-71110 Venipuncture Draw Fee 11:31:07 COSTUME MISTRESS CPT-45323 TPSA - LAB USE ONLY 11:31:07 COSTUME MISTRESS CPT-63672 PT/INR - LAB USE ONLY 11:31:07 COSTUME MISTRESS CPT-G0439 Subsequent Annual Wellness Exam 09:59:29 COSTUME MISTRESS CPT-94880 Creatinine - LAB USE ONLY 14:37:55 COSTUME MISTRESS CPT-15464 PT/INR - LAB USE ONLY 14:37:55 COSTUME MISTRESS CPT-72406 Venipuncture Draw Fee 14:37:55 COSTUME MISTRESS CPT-67358 LS spine comp w obliques - XRAY USE ONLY 12:59:25 [facility] CPT-33007 PT/INR - LAB USE ONLY 13:49:20 CDT CPT-26747 Venipuncture Draw Fee 13:49:19 CDT CPT-86798 PT/INR - LAB USE ONLY 15:48:49 CDT CPT-47624 Venipuncture Draw Fee 15:48:49 CDT CPT-50911 Venipuncture Draw Fee 11:31:59 CDT CPT-99676 PT/INR - LAB USE ONLY 11:31:59 CDT CPT-49983 Venipuncture Draw Fee 13:29:15 CDT CPT-85761 Thoracolumbar AP/Lat 15:19:19 [facility] CPT-G0438 Initial Annual Wellness Exam 12:18:54 COSTUME MISTRESS CPT-56417 Knee 3V 09:57:38 CDT CPT-OV Office Visit 15:45:01 COSTUME MISTRESS CPT-10182 Abd compl w upright 17:10:25 CDT
--- OUTSIDE RECORDS SUMMARY | 2018-07-18 09:49 | XMS REPORT | Clinical Summary ---
Author Author Admin, YONG Organization [facility] Address Unknown Phone Unavailable Allergies, Adverse Reactions, [...] 1 tablet days 2 through 4 PREDNISONE 48472070270 No Longer Active Piotr Daley DO Active AZITHROMYCIN 250 MG TABS 2 po qd x 1 day, then 1 po qd x 4 days AZITHROMYCIN 36657575699 No Longer Active Piotr Daley DO Active IBUPROFEN 800 MG TABS 1 tab every 8 hours as needed IBUPROFEN 25925933058 No Longer Active Piotr Daley DO Active LOMOTIL 2.5-0.025 MG TAB 1 to 2 four times a day as needed for diarrhea 10/13 DIPHENOXYLATE-ATROPINE 76646606599 No Longer Active Piotr Daley DO Active WARFARIN SODIUM 5 MG TABS 1 tablet daily except for Saturday and 04/09 tablet. WARFARIN SODIUM 71120311597 Active Piotr Daley DO Active WARFARIN SODIUM 4 MG TABS 1 tab every evening WARFARIN SODIUM 68938218474 No Longer Active Piotr Daley DO Active PREDNISONE 20 MG TAB 1 tablet twice daily for 2 days, then 1 tablet once daily for 2 days PREDNISONE 09631548246 No Longer Active Piotr Daley DO Active PROMETHAZINE HCL 25 MG TABS 1 four times a day as needed for nausea/vomiting PROMETHAZINE HCL 14207367886 No Longer Active Piotr Daley DO Active TUSSIONEX PENNKINETIC ER 10-8 MG/5ML LQCR 5ml po q12hr PRN Cough HYDROCOD POLST-CHLORPHEN POLST 58646142831 No Longer Active Piotr Daley DO Active AZITHROMYCIN 250 MG TABS 2 po qd x 1 day, then 1 po qd x 4 days AZITHROMYCIN 39176485986 No Longer Active Piotr Daley DO Active AZITHROMYCIN 250 MG TABS 2 po qd x 1 day, then 1 po qd x 4 days AZITHROMYCIN 26211595889 No Longer Active Piotr Daley DO Active LISINOPRIL-HYDROCHLOROTHIAZIDE 10-12.5 MG TABS 1 tab by mouth daily LISINOPRIL-HYDROCHLOROTHIAZIDE 91508675048 Active Piotr Daley DO Active LISINOPRIL 10 MG TABS 1/2-1 tab po every other day LISINOPRIL 95387881565 No Longer Active Piotr Daley DO Active VENTOLIN HFA 108 (90 BASE) MCG/ACT AERS 2 puffs four times a day PRN cough ALBUTEROL SULFATE 26306301438 No Longer Active Piotr Daley DO Active NYSTATIN-TRIAMCINOLONE 167891-3.1 UNIT/GM-% CREA Apply to area BID NYSTATIN-TRIAMCINOLONE 59084368417 No Longer Active Alena Chavira GEOCHEMICAL MANAGER Active PHISOHEX 3 % LIQD Use Directed HEXACHLOROPHENE 36667001161 No Longer Active Sandra Burchard Active AZITHROMYCIN 250 MG TABS 2 po qd x 1 day, then 1 po qd x 4 days AZITHROMYCIN 41617871361 No Longer Active Katrina Rinaldi MD PhD Active AZITHROMYCIN 250 MG TABS 2 po qd x 1 day, then 1 po qd x 4 days AZITHROMYCIN 49771318468 No Longer Active Piotr Daley DO Active AZITHROMYCIN 500 MG SOLR 1 po q day AZITHROMYCIN 30350404659 No Longer Active Piotr Daley DO Active NYSTATIN-TRIAMCINOLONE 222187-1.1 UNIT/GM-% CREA apply bid 08/19 NYSTATIN-TRIAMCINOLONE 24744355547 No Longer Active Piotr Daley DO Active IBUPROFEN 800 MG TABS 1 po q 8 hours prn pain sparinly IBUPROFEN 79170340259 No Longer Active Piotr Daley DO Active VITAMIN D3 5000 UNIT CAPS 1 po daily CHOLECALCIFEROL 87690084813 Active Piotr Daley DO Active IBUPROFEN 800 MG TABS 1 po q 8 hours prn pain sparinly IBUPROFEN 800 MG TABS 452829 IBUPROFEN Inactive NYSTATIN-TRIAMCINOLONE 270797-9.1 UNIT/GM-% CREA apply bid 08/19 NYSTATIN-TRIAMCINOLONE 592784-8.1 UNIT/GM-% CREA 2636802 NYSTATIN- TRIAMCINOLONE Inactive AZITHROMYCIN 500 MG SOLR 1 po q day AZITHROMYCIN 500 MG SOLR 078670 AZITHROMYCIN Inactive VENTOLIN HFA 108 (90 BASE) MCG/ACT AERS 2 puffs four times a day PRN cough VENTOLIN HFA 108 (90 BASE) MCG/ACT AERS ALBUTEROL SULFATE Inactive LISINOPRIL 10 MG TABS 1/2-1 tab po every other day LISINOPRIL 10 MG TABS 376895 LISINOPRIL Inactive TUSSIONEX PENNKINETIC ER 10-8 MG/5ML LQCR 5ml po q12hr PRN Cough TUSSIONEX PENNKINETIC ER 10-8 MG/5ML LQCR HYDROCOD POLST- CHLORPHEN POLST Inactive PROMETHAZINE HCL 25 MG TABS 1 four times a day as needed for nausea/vomiting PROMETHAZINE HCL 25 MG TABS 567732 PROMETHAZINE HCL Inactive PREDNISONE 20 MG TAB 1 tablet twice daily for 2 days, then 1 tablet once daily for 2 days PREDNISONE 20 MG TAB 323814 PREDNISONE Inactive WARFARIN SODIUM 4 MG TABS 1 tab every evening WARFARIN SODIUM 4 MG TABS 679749 WARFARIN SODIUM Inactive LOMOTIL 2.5-0.025 MG TAB 1 to 2 four times a day as needed for diarrhea 10/13 LOMOTIL 2.5-0.025 MG TAB 2278815 DIPHENOXYLATE-ATROPINE Inactive IBUPROFEN 800 MG TABS 1 tab every 8 hours as needed IBUPROFEN 800 MG TABS 289710 IBUPROFEN Inactive PREDNISONE 20 MG TAB 2 tablets today, then 1 tablet days 2 through 4 PREDNISONE 20 MG TAB 759222 PREDNISONE Inactive AZITHROMYCIN 250 MG TABS 2 po qd x 1 day, then 1 po qd x 4 days AZITHROMYCIN 250 MG TABS 8297993 AZITHROMYCIN Inactive AZITHROMYCIN 250 MG TABS 2 po qd x 1 day, then 1 po qd x 4 days AZITHROMYCIN 250 MG TABS 0952370 AZITHROMYCIN Inactive NYSTATIN-TRIAMCINOLONE 905293-8.1 UNIT/GM-% CREA Apply to area BID NYSTATIN-TRIAMCINOLONE 283409-5.1 UNIT/GM-% CREA 7032814 NYSTATIN-TRIAMCINOLONE Inactive AZITHROMYCIN 250 MG TABS 2 po qd x 1 day, then 1 po qd x 4 days AZITHROMYCIN 250 MG TABS 0311368 AZITHROMYCIN Inactive AZITHROMYCIN 250 MG TABS 2 po qd x 1 day, then 1 po qd x 4 days AZITHROMYCIN 250 MG TABS 7218724 AZITHROMYCIN Inactive AZITHROMYCIN 250 MG TABS 2 po qd x 1 day, then 1 po qd x 4 days AZITHROMYCIN 250 MG TABS 4267857 AZITHROMYCIN Inactive Vital Signs Date Name Value [...] ... - Chemistry sodium, serum 142 mmol/L 393-615 0246/12/01 potassium, serum 4.7 mmol/L 3.5-5.2 chloride, serum [...] 142-424 Encounters Code Encounter Date Provider Facility CPT-15022 Level 3 Est. Patient 09:49:40 CDT Piotr Daley DO [facility] CPT-86908 Level 3 Est. Patient 16:28:11 CDT Piotr Daley [facility] CPT-98659 Level 3 Est. Patient 12:41:58 BECK TENDER Piotr Daley [facility] CPT-23986 Level 3 Est. Patient 09:21:24 CDT Piotr Daley [facility] CPT-87498 Level 3 Est. Patient 09:21:11 CDT Piotr Daley [facility] CPT-49269 Level 3 Est. Patient 11:16:29 BECK TENDER Piotr Daley [facility] CPT-26452 Level 3 Est. Patient 18:40:19 BECK TENDER Piotr Daley [facility] CPT-50796 Level 3 Est. Patient 19:30:50 CDT Piotr Daley [facility] CPT-20516 Level 3 Est. Patient 22:06:44 CDT Katrina Rinaldi MD PhD [facility] CPT-62838 Level 3 Est. Patient 14:20:00 CDT Piotr Daley [facility] CPT-56180 Level 3 Est. Patient 14:15:22 BECK TENDER Piotr Katie Daley [facility] CPT-27635 Level 3 Est. Patient 20:19:57 BECK TENDER Piotr Daley [facility] CPT-43266 Level 3 Est. Patient 16:44:32 CDT Piotr Katie Daley [facility] CPT-78192 Level 3 Est. Patient 08:48:46 BECK TENDER Piotr Wilson [facility] CPT-96961 Level 3 Est. Patient 21:01:21 CDT Piotr Katie Edi [facility] Procedures Code Procedure Name Date Entry Date Standard Description CPT-18296 Knee 3V 09:57:38 CDT CPT-OV Office Visit 15:45:01 BECK TENDER CPT-80069 Abd compl w upright 17:10:25 CDT
--- OUTSIDE RECORDS SUMMARY | 2018-07-18 09:49 | XMS REPORT | Clinical Summary ---
Author Author Admin, E Organization [employer] Address Unknown Phone Unavailable Allergies, Adverse Reactions, [...] po tid with ES Tylenol TRAMADOL HCL 39936111652 Active Piotr Daley DO Active WARFARIN SODIUM 5 MG TABS 1 tablet daily except for Saturday and Sat 1/2 tablet. WARFARIN SODIUM 89774276190 Active Hilary Ma MA Active PREDNISONE 20 MG TAB 2 tablets today, then 1 tablet days 2 through 4 PREDNISONE 45710876825 No Longer Active Piotr Daley DO Active AZITHROMYCIN 250 MG TABS 2 po qd x 1 day, then 1 po qd x 4 days AZITHROMYCIN 69621196097 No Longer Active Piotr Daley DO Active IBUPROFEN 800 MG TABS 1 tab every 8 hours as needed IBUPROFEN 73590589377 No Longer Active Piotr Daley DO Active LOMOTIL 2.5-0.025 MG TAB 1 to 2 four times a day as needed for diarrhea 10/13 DIPHENOXYLATE-ATROPINE 29744727363 No Longer Active Piotr Daley DO Active WARFARIN SODIUM 4 MG TABS 1 tab every evening WARFARIN SODIUM 86636736081 No Longer Active Piotr Daley DO Active PREDNISONE 20 MG TAB 1 tablet twice daily for 2 days, then 1 tablet once daily for 2 days PREDNISONE 74749928403 No Longer Active Piotr Daley DO Active PROMETHAZINE HCL 25 MG TABS 1 four times a day as needed for nausea/vomiting PROMETHAZINE HCL 32364111869 No Longer Active Piotr Daley DO Active TUSSIONEX PENNKINETIC ER 10-8 MG/5ML LQCR 5ml po q12hr PRN Cough HYDROCOD POLST-CHLORPHEN POLST 15426788124 No Longer Active Piotr Daley DO Active AZITHROMYCIN 250 MG TABS 2 po qd x 1 day, then 1 po qd x 4 days AZITHROMYCIN 91126945239 No Longer Active Piotr Daley DO Active AZITHROMYCIN 250 MG TABS 2 po qd x 1 day, then 1 po qd x 4 days AZITHROMYCIN 09474012134 No Longer Active Piotr Daley DO Active LISINOPRIL-HYDROCHLOROTHIAZIDE 10-12.5 MG TABS 1 tab by mouth daily LISINOPRIL-HYDROCHLOROTHIAZIDE 89996102828 Active Hilary Ma MA Active LISINOPRIL 10 MG TABS 1/2-1 tab po every other day LISINOPRIL 67415219389 No Longer Active Piotr Daley DO Active VENTOLIN HFA 108 (90 BASE) MCG/ACT AERS 2 puffs four times a day PRN cough ALBUTEROL SULFATE 78162045441 No Longer Active Piotr Daley DO Active NYSTATIN-TRIAMCINOLONE 443754-7.1 UNIT/GM-% CREA Apply to area BID NYSTATIN-TRIAMCINOLONE 11919160202 No Longer Active Alena Chavira CONSTRUCTION CREW MEMBER Active PHISOHEX 3 % LIQD Use Directed HEXACHLOROPHENE 89969731225 No Longer Active Sandra Maurepas Active AZITHROMYCIN 250 MG TABS 2 po qd x 1 day, then 1 po qd x 4 days AZITHROMYCIN 83003394904 No Longer Active Katrina Rinaldi MD PhD Active AZITHROMYCIN 250 MG TABS 2 po qd x 1 day, then 1 po qd x 4 days AZITHROMYCIN 00924564076 No Longer Active Piotr Daley DO Active AZITHROMYCIN 500 MG SOLR 1 po q day AZITHROMYCIN 66871050407 No Longer Active Piotr Daley DO Active NYSTATIN-TRIAMCINOLONE 284931-2.1 UNIT/GM-% CREA apply bid 08/19 NYSTATIN-TRIAMCINOLONE 03262423701 No Longer Active Piotr Daley DO Active IBUPROFEN 800 MG TABS 1 po q 8 hours prn pain sparinly IBUPROFEN 01787483590 No Longer Active Piotr Daley DO Active VITAMIN D3 5000 UNIT CAPS 1 po daily CHOLECALCIFEROL 10736319651 Active Piotr Daley DO Active IBUPROFEN 800 MG TABS 1 po q 8 hours prn pain sparinly IBUPROFEN 800 MG TABS 322696 IBUPROFEN Inactive NYSTATIN-TRIAMCINOLONE 053507-6.1 UNIT/GM-% CREA apply bid 08/19 NYSTATIN-TRIAMCINOLONE 657204-4.1 UNIT/GM-% CREA 5970744 NYSTATIN- TRIAMCINOLONE Inactive AZITHROMYCIN 500 MG SOLR 1 po q day AZITHROMYCIN 500 MG SOLR 95601338842 AZITHROMYCIN Inactive VENTOLIN HFA 108 (90 BASE) MCG/ACT AERS 2 puffs four times a day PRN cough VENTOLIN HFA 108 (90 BASE) MCG/ACT AERS ALBUTEROL SULFATE Inactive LISINOPRIL 10 MG TABS 1/2-1 tab po every other day LISINOPRIL 10 MG TABS 590626 LISINOPRIL Inactive TUSSIONEX PENNKINETIC ER 10-8 MG/5ML LQCR 5ml po q12hr PRN Cough TUSSIONEX PENNKINETIC ER 10-8 MG/5ML LQCR HYDROCOD POLST- CHLORPHEN POLST Inactive PROMETHAZINE HCL 25 MG TABS 1 four times a day as needed for nausea/vomiting PROMETHAZINE HCL 25 MG TABS 429120 PROMETHAZINE HCL Inactive PREDNISONE 20 MG TAB 1 tablet twice daily for 2 days, then 1 tablet once daily for 2 days PREDNISONE 20 MG TAB 142582 PREDNISONE Inactive WARFARIN SODIUM 4 MG TABS 1 tab every evening WARFARIN SODIUM 4 MG TABS 830966 WARFARIN SODIUM Inactive LOMOTIL 2.5-0.025 MG TAB 1 to 2 four times a day as needed for diarrhea 10/13 LOMOTIL 2.5-0.025 MG TAB 0304142 DIPHENOXYLATE-ATROPINE Inactive IBUPROFEN 800 MG TABS 1 tab every 8 hours as needed IBUPROFEN 800 MG TABS 875687 IBUPROFEN Inactive PREDNISONE 20 MG TAB 2 tablets today, then 1 tablet days 2 through 4 PREDNISONE 20 MG TAB 514777 PREDNISONE Inactive AZITHROMYCIN 250 MG TABS 2 po qd x 1 day, then 1 po qd x 4 days AZITHROMYCIN 250 MG TABS 8534714 AZITHROMYCIN Inactive AZITHROMYCIN 250 MG TABS 2 po qd x 1 day, then 1 po qd x 4 days AZITHROMYCIN 250 MG TABS 4708574 AZITHROMYCIN Inactive NYSTATIN-TRIAMCINOLONE 699072-3.1 UNIT/GM-% CREA Apply to area BID NYSTATIN-TRIAMCINOLONE 320245-4.1 UNIT/GM-% CREA 6727162 NYSTATIN-TRIAMCINOLONE Inactive AZITHROMYCIN 250 MG TABS 2 po qd x 1 day, then 1 po qd x 4 days AZITHROMYCIN 250 MG TABS 0780725 AZITHROMYCIN Inactive AZITHROMYCIN 250 MG TABS 2 po qd x 1 day, then 1 po qd x 4 days AZITHROMYCIN 250 MG TABS 7651591 AZITHROMYCIN Inactive AZITHROMYCIN 250 MG TABS 2 po qd x 1 day, then 1 po qd x 4 days AZITHROMYCIN 250 MG TABS 6463382 AZITHROMYCIN Inactive Advance Directives Directive Description Start [...] mg/g mg/g{creat} 0-29 sodium, serum 140 mmol/L 827-037 0106/07/17 potassium, serum 4.2 mmol/L 3.5-5.2 chloride, serum [...] 5.0-8.5 Encounters Code Encounter Date Provider Facility CPT-29849 Level 3 Est. Patient 15:14:31 INSTRUCTIONAL SUPPORT ASSISTANT Piotr Daley [facility] CPT-73575 Level 3 Est. Patient 09:20:13 INSTRUCTIONAL SUPPORT ASSISTANT Piotr Daley [facility]-87446 Level 3 Est. Patient 09:49:40 CDT Piotr [facility]-46589 Level 3 Est. Patient 16:28:11 CDT Piotr Daley [facility] CPT-40429 Level 3 Est. Patient 12:41:58 INSTRUCTIONAL SUPPORT ASSISTANT Piotr Daley [facility] CPT-12984 Level 3 Est. Patient 09:21:24 CDT Piotr Daley [facility]-70092 Level 3 Est. Patient 09:21:11 CDT Piotr [facility]-71616 Level 3 Est. Patient 11:16:29 INSTRUCTIONAL SUPPORT ASSISTANT Piotr Daley [facility] CPT-02228 Level 3 Est. Patient 18:40:19 INSTRUCTIONAL SUPPORT ASSISTANT Piotr [facility] CPT-00935 Level 3 Est. Patient 19:30:50 CDT Piotr [facility]-35384 Level 3 Est. Patient 22:06:44 CDT Katrina Rinaldi MD PhD [facility]-67089 Level 3 Est. Patient 14:20:00 CDT [facility]iotr [facility] CPT-87894 Level 3 Est. Patient 14:15:22 INSTRUCTIONAL SUPPORT ASSISTANT Piotr Wilson [facility] CPT-17638 Level 3 Est. Patient 20:19:57 INSTRUCTIONAL SUPPORT ASSISTANT Piotr Wilson Edi [facility] CPT-53710 Level 3 Est. Patient 16:44:32 CDT Piotr Daley [facility] CPT-82818 Level 3 Est. Patient 08:48:46 INSTRUCTIONAL SUPPORT ASSISTANT Piotr Wilson [facility]i [facility] CPT-73988 Level 3 Est. Patient 21:01:21 CDT Piotr [facility] Procedures Code Procedure Name Date Entry Date Standard Description CPT-90525 Thoracolumbar AP/Lat 15:19:19 INSTRUCTIONAL SUPPORT ASSISTANT CPT-G0438 Initial Annual Wellness Exam 12:18:54 INSTRUCTIONAL SUPPORT ASSISTANT CPT-28205 Knee 3V 09:57:38 CDT CPT-OV Office Visit 15:45:01 INSTRUCTIONAL SUPPORT ASSISTANT CPT-62224 Abd compl w upright 17:10:25 CDT
--- OUTSIDE RECORDS SUMMARY | 2018-07-18 09:50 | XMS REPORT | Clinical Summary ---
Author Author Admin, [employer] Organization [employer] Address Unknown Phone Unavailable Allergies, Adverse Reactions, [...] neoplasm of prostate V10.46 Active Alina Meyers ORGANIZATION DEVELOPMENT CONSULTANT Personal history of malignant neoplasm of prostate Coronary artery disease 414.00 Active Alina Meyers APRN Coronary atherosclerosis of unspecified type of vessel, circle or graft Back pain, thoracic region, left [...] LOO Knee pain, left ICD-719.46 Inactive Sirisha Hcen LEVERS LACE MACHINE OPERATOR Actinic keratoses ICD-702.0 Inactive Sirisha Chen LEVERS LACE MACHINE OPERATOR Back pain, thoracic region, left ICD-724.1 Inactive Piotr Daley DO Thoracic back pain ICD-724.5 Inactive Sirisha Chen LEVERS LACE MACHINE OPERATOR Back pain lumbar ICD-724.2 Inactive Sirisha Chen LEVERS LACE MACHINE OPERATOR Insect bite ICD-919.4 Inactive Sirisha Chen LEVERS LACE MACHINE OPERATOR Pruritus ICD-698.9 Inactive Sirisha Chen LEVERS LACE MACHINE OPERATOR 04/09 Bronchitis-Acute ICD-466.0 Inactive Sirisha Chen LEVERS LACE MACHINE OPERATOR Dyspnea ICD-786.09 Inactive Sirisha Chen LEVERS LACE MACHINE OPERATOR 05/09 Medication List Medication Instructions Start Date Stop Date Generic Name NDC Status Provider Patient Instruction WARFARIN SODIUM 4 MG ORAL TABLET 1 tablet by mouth daily except 2mg on Saturday and Saturday WARFARIN SODIUM 85482936026 Active Anahy Loja Active MELOXICAM 15 MG ORAL TABLET 1 po q day for pain with food MELOXICAM 85006069821 Active Piotr Daley DO Active PREDNISONE 10 MG ORAL TABLET 1 tablet by mouth daily PREDNISONE 36339821103 No Longer Active Emelyn Norris Active TESSALON PERLES 100 MG ORAL CAPSULE 1-2 tablet by mouth 3 times daily 04/16 BENZONATATE 30404100503 No Longer Active Emelyn Norris Active PREDNISONE 20 MG ORAL TABLET two tabs by mouth today, then one tab by mouth days two and three PREDNISONE 15312392812 No Longer Active Piotr Daley DO Active CYCLOBENZAPRINE HCL 10 MG ORAL TABLET 1 tablet by mouth three times daily as needed for muscle spasm/pain CYCLOBENZAPRINE HCL 81655836010 Active Piotr Daley DO Active ZITHROMAX 250 MG ORAL TABLET Take two (2 ) tablets day one, then one (1) tablet a day for four (4) more days AZITHROMYCIN 97848013914 No Longer Active Piotr Daley DO Active PROAIR HFA 108 (90 BASE) MCG/ACT INHALATION AEROSOL SOLUTION 1-2 puffs four times a day as needed ALBUTEROL SULFATE 66359611060 No Longer Active Emelyn Norris Active DOXYCYCLINE HYCLATE 100 MG ORAL CAPSULE 1 cap by mouth BID x10 days DOXYCYCLINE HYCLATE 57670245952 No Longer Active Nella Harris APRN Active PREDNISONE 20 MG ORAL TABLET 2 tabs daily for 3 days, 1 tab daily for 3 days, 1/2 tab daily for 2 days PREDNISONE 98272535795 No Longer Active Matthew Rangel MD Active TRAMADOL HCL 50 MG ORAL TABLET 1 po tid with ES Tylenol TRAMADOL HCL 80993778502 No Longer Active Matthew Rangel MD Active GABAPENTIN 300 MG ORAL CAPSULE 1 po q hs for nerve pain GABAPENTIN 33185956678 No Longer Active Matthew Rangel MD Active PREDNISONE 20 MG ORAL TABLET 2 tablets today, then 1 tablet days 2 through 4 PREDNISONE 57689549534 No Longer Active Piotr Daley DO Active AZITHROMYCIN 250 MG ORAL TABLET 2 po qd x 1 day, then 1 po qd x 4 days 07/12 AZITHROMYCIN 89519076073 No Longer Active Piotr Daley DO Active IBUPROFEN 800 MG ORAL TABLET 1 tab every 8 hours as needed 07/12 IBUPROFEN 99867713472 No Longer Active Piotr Daley DO Active LOMOTIL 2.5-0.025 MG ORAL TABLET 1 to 2 four times a day as needed for diarrhea DIPHENOXYLATE-ATROPINE 06975129756 No Longer Active Piotr W Edi DO Active WARFARIN SODIUM 4 MG ORAL TABLET 1 tab every evening WARFARIN SODIUM 81145165866 No Longer Active Piotr Daley DO Active PREDNISONE 20 MG ORAL TABLET 1 tablet twice daily for 2 days, then 1 tablet once daily for 2 days PREDNISONE 44521263297 No Longer Active Piotr Daley DO Active PROMETHAZINE HCL 25 MG ORAL TABLET 1 four times a day as needed for nausea/ vomiting PROMETHAZINE HCL 67847675069 No Longer Active Piotr Daley DO Active TUSSIONEX PENNKINETIC ER 10-8 MG/5ML ORAL SUSPENSION EXTENDED RELEASE 5ml po q12hr PRN Cough HYDROCOD POLST-CHLORPHEN POLST 18145607650 No Longer Active Piotr Daley DO Active AZITHROMYCIN 250 MG ORAL TABLET 2 po qd x 1 day, then 1 po qd x 4 days 10/13 AZITHROMYCIN 49892023759 No Longer Active Piotr Daley DO Active AZITHROMYCIN 250 MG ORAL TABLET 2 po qd x 1 day, then 1 po qd x 4 days 05/07 AZITHROMYCIN 44679454309 No Longer Active Piotr Daley DO Active LISINOPRIL-HYDROCHLOROTHIAZIDE 10-12.5 MG ORAL TABLET 1 tab by mouth daily LISINOPRIL-HYDROCHLOROTHIAZIDE 72394723888 Active Piotr Daley DO Active LISINOPRIL 10 MG ORAL TABLET 1/2-1 tab po every other day LISINOPRIL 42295355302 No Longer Active Piotr Daley DO Active VENTOLIN HFA 108 (90 Base) MCG/ACT INHALATION AEROSOL SOLUTION 2 puffs four times a day PRN cough ALBUTEROL SULFATE 63821226304 No Longer Active Piotr Daley DO Active NYSTATIN-TRIAMCINOLONE 247410-0.1 UNIT/GM-% EXTERNAL CREAM Apply to area BID NYSTATIN-TRIAMCINOLONE 89428879594 No Longer Active Alena Chavira LEVERS LACE MACHINE OPERATOR Active PHISOHEX 3 % LIQD Use Directed HEXACHLOROPHENE 06803416785 No Longer Active Sandra Freeman Spur Active AZITHROMYCIN 250 MG ORAL TABLET 2 po qd x 1 day, then 1 po qd x 4 days 10/21 AZITHROMYCIN 96414904955 No Longer Active Katrina Rinaldi MD PhD Active AZITHROMYCIN 250 MG ORAL TABLET 2 po qd x 1 day, then 1 po qd x 4 days 10/16 AZITHROMYCIN 87805095775 No Longer Active Piotr Daley DO Active AZITHROMYCIN 500 MG INTRAVENOUS SOLUTION RECONSTITUTED 1 po q day AZITHROMYCIN 69737133690 No Longer Active Piotr Daley DO Active NYSTATIN-TRIAMCINOLONE 413089-8.1 UNIT/GM-% EXTERNAL CREAM apply bid NYSTATIN-TRIAMCINOLONE 04423403423 No Longer Active Piotr Daley DO Active IBUPROFEN 800 MG ORAL TABLET 1 po q 8 hours prn pain sparinly IBUPROFEN 64750424213 No Longer Active Piotr Daley DO Active VITAMIN D3 5000 UNIT ORAL CAPSULE 1 po daily CHOLECALCIFEROL 34978025293 Active Piotr Daley DO Active IBUPROFEN 800 MG ORAL TABLET 1 po q 8 hours prn pain sparinly IBUPROFEN 800 MG ORAL TABLET 154039 IBUPROFEN Inactive NYSTATIN-TRIAMCINOLONE 283469-8.1 UNIT/GM-% EXTERNAL CREAM apply bid NYSTATIN-TRIAMCINOLONE 910278-2.1 UNIT/GM-% EXTERNAL CREAM 3010721 NYSTATIN-TRIAMCINOLONE Inactive AZITHROMYCIN 500 MG INTRAVENOUS SOLUTION RECONSTITUTED 1 po q day AZITHROMYCIN 500 MG INTRAVENOUS SOLUTION RECONSTITUTED 93028108139 AZITHROMYCIN Inactive VENTOLIN HFA 108 (90 Base) MCG/ACT INHALATION AEROSOL SOLUTION 2 puffs four times a day PRN cough VENTOLIN HFA 108 (90 Base) MCG/ ACT INHALATION AEROSOL SOLUTION ALBUTEROL SULFATE Inactive LISINOPRIL 10 MG ORAL TABLET 1/2-1 tab po every other day LISINOPRIL 10 MG ORAL TABLET 361480 LISINOPRIL Inactive TUSSIONEX PENNKINETIC ER 10-8 MG/5ML ORAL SUSPENSION EXTENDED RELEASE 5ml po q12hr PRN Cough TUSSIONEX PENNKINETIC ER 10-8 MG/5ML ORAL SUSPENSION EXTENDED RELEASE HYDROCOD POLST-CHLORPHEN POLST Inactive PROMETHAZINE HCL 25 MG ORAL TABLET 1 four times a day as needed for nausea/ vomiting PROMETHAZINE HCL 25 MG ORAL TABLET 384203 PROMETHAZINE HCL Inactive PREDNISONE 20 MG ORAL TABLET 1 tablet twice daily for 2 days, then 1 tablet once daily for 2 days PREDNISONE 20 MG ORAL TABLET 585776 PREDNISONE Inactive WARFARIN SODIUM 4 MG ORAL TABLET 1 tab every evening WARFARIN SODIUM 4 MG ORAL TABLET 584723 WARFARIN SODIUM Inactive LOMOTIL 2.5-0.025 MG ORAL TABLET 1 to 2 four times a day as needed for diarrhea LOMOTIL 2.5-0.025 MG ORAL TABLET 4277509 DIPHENOXYLATE-ATROPINE Inactive IBUPROFEN 800 MG ORAL TABLET 1 tab every 8 hours as needed 07/12 IBUPROFEN 800 MG ORAL TABLET 399524 IBUPROFEN Inactive PREDNISONE 20 MG ORAL TABLET 2 tablets today, then 1 tablet days 2 through 4 PREDNISONE 20 MG ORAL TABLET 602921 PREDNISONE Inactive GABAPENTIN 300 MG ORAL CAPSULE 1 po q hs for nerve pain GABAPENTIN 300 MG ORAL CAPSULE 266279 GABAPENTIN Inactive TRAMADOL HCL 50 MG ORAL TABLET 1 po tid with ES Tylenol TRAMADOL HCL 50 MG ORAL TABLET 843688 TRAMADOL HCL Inactive PROAIR HFA 108 (90 BASE) MCG/ACT INHALATION AEROSOL SOLUTION 1-2 puffs four times a day as needed PROAIR HFA 108 (90 BASE) MCG/ACT INHALATION AEROSOL SOLUTION ALBUTEROL SULFATE Inactive PREDNISONE 20 MG ORAL TABLET two tabs by mouth today, then one tab by mouth days two and three PREDNISONE 20 MG ORAL TABLET 828078 PREDNISONE Inactive TESSALON PERLES 100 MG ORAL CAPSULE 1-2 tablet by mouth 3 times daily 04/16 TESSALON PERLES 100 MG ORAL CAPSULE 776348 BENZONATATE Inactive PREDNISONE 10 MG ORAL TABLET 1 tablet by mouth daily PREDNISONE 10 MG ORAL TABLET 911506 PREDNISONE Inactive AZITHROMYCIN 250 MG ORAL TABLET 2 po qd x 1 day, then 1 po qd x 4 days 10/16 AZITHROMYCIN 250 MG ORAL TABLET 736341 AZITHROMYCIN Inactive AZITHROMYCIN 250 MG ORAL TABLET 2 po qd x 1 day, then 1 po qd x 4 days 10/21 AZITHROMYCIN 250 MG ORAL TABLET 242147 AZITHROMYCIN Inactive NYSTATIN-TRIAMCINOLONE 915578-8.1 UNIT/GM-% EXTERNAL CREAM Apply to area BID NYSTATIN-TRIAMCINOLONE 142268-5.1 UNIT/GM-% EXTERNAL CREAM 8720609 NYSTATIN-TRIAMCINOLONE Inactive AZITHROMYCIN 250 MG ORAL TABLET 2 po qd x 1 day, then 1 po qd x 4 days 05/07 AZITHROMYCIN 250 MG ORAL TABLET 569890 AZITHROMYCIN Inactive AZITHROMYCIN 250 MG ORAL TABLET 2 po qd x 1 day, then 1 po qd x 4 days 10/13 AZITHROMYCIN 250 MG ORAL TABLET 242037 AZITHROMYCIN Inactive AZITHROMYCIN 250 MG ORAL TABLET 2 po qd x 1 day, then 1 po qd x 4 days 07/12 AZITHROMYCIN 250 MG ORAL TABLET 676429 AZITHROMYCIN Inactive PREDNISONE 20 MG ORAL TABLET 2 tabs daily for 3 days, 1 tab daily for 3 days, 1/2 tab daily for 2 days PREDNISONE 20 MG ORAL TABLET 393130 PREDNISONE Inactive DOXYCYCLINE HYCLATE 100 MG ORAL CAPSULE 1 cap by mouth BID x10 days DOXYCYCLINE HYCLATE 100 MG ORAL CAPSULE 2965201 DOXYCYCLINE HYCLATE Inactive ZITHROMAX 250 MG ORAL TABLET Take two (2 ) tablets day one, then one (1) tablet a day for four (4) more days ZITHROMAX 250 MG ORAL TABLET 108461 AZITHROMYCIN Inactive Advance Directives Directive Description Start [...] % 11.0-15.0 platelet count 172 THOUSAND/UL 10*3/mm3 178-880 5979/04/12 mean platelet volume 8.6 fL 7.5-12.5 Lab Report: Prothrombin Time Hemochron - Coagulation prothrombin time (patient) 33.0 SECS s 18.9-24.9 Encounters Code Encounter Date Provider Facility CPT-54902 Level 3 Est. Patient 15:59:25 TOWER WATCHMAN Piotr Daley [facility] CPT-42601 Level 3 Est. Patient 12:33:59 TOWER WATCHMAN Piotr Daley [facility] CPT-69945 Level 3 Est. Patient 15:56:17 TOWER WATCHMAN Piotr Daley [facility] CPT-92157 Level 3 Est. Patient 10:34:54 TOWER WATCHMAN Piotr Daley [facility] CPT-86573 Level 3 Est. Patient 17:10:19 CDJose Harris APRN [facility] CPT-61029 Level 3 Est. Patient 10:48:17 TOWER WATCHMAN Matthew Rangel MD [facility] CPT-74067 Level 4 Est. Patient 17:15:07 TOWER WATCHMAN Piotr Daley [facility] CPT-72283 Level 3 Est. Patient 12:46:13 TOWER WATCHMAN Piotr Daley [facility] CPT-51368 Level 3 Est. Patient 15:14:31 TOWER WATCHMAN Piotr Daley [facility] CPT-77039 Level 3 Est. Patient 09:20:13 TOWER WATCHMAN Piotr Daley [facility] CPT-55710 Level 3 Est. Patient 09:49:40 CDT Piotr Daley [facility] CPT-85411 Level 3 Est. Patient 16:28:11 CDT Piotr Daley [facility] CPT-75550 Level 3 Est. Patient 12:41:58 TOWER WATCHMAN Piotr Daley [facility] CPT-98222 Level 3 Est. Patient 09:21:24 CDT Piotr Daley [facility] CPT-47913 Level 3 Est. Patient 09:21:11 CDT Piotr Daley [facility] CPT-43219 Level 3 Est. Patient 11:16:29 TOWER WATCHMAN Piotr Daley [facility] CPT-06822 Level 3 Est. Patient 18:40:19 TOWER WATCHMAN Piotr Daley [facility] CPT-02575 Level 3 Est. Patient 19:30:50 CDT Piotr Daley [facility] CPT-30763 Level 3 Est. Patient 22:06:44 CDT Katrina Rinaldi MD PhD [facility] CPT-13484 Level 3 Est. Patient 14:20:00 CDT Piotr Daley [facility] CPT-75634 Level 3 Est. Patient 14:15:22 TOWER WATCHMAN Piotr Daley [facility] CPT-93276 Level 3 Est. Patient 20:19:57 TOWER WATCHMAN Piotr Daley [facility] CPT-92903 Level 3 Est. Patient 16:44:32 CDT Piotr Daley [facility] CPT-93364 Level 3 Est. Patient 08:48:46 TOWER WATCHMAN Piotr Daley [facility] CPT-48966 Level 3 Est. Patient 21:01:21 CDT Piotr Daley [facility] Procedures Code Procedure Name Date Entry Date Standard Description CPT-73634 Sacroiliac jt < 3V - XRAY USE ONLY 16:45:19 TOWER WATCHMAN 05/09 CPT-05588 LS spine comp w obliques - XRAY USE ONLY 14:52:26 [facility] CPT-33930 Chest, 2 views 12:55:58 TOWER WATCHMAN CPT-G0439 Subsequent Annual Wellness Exam 10:34:52 TOWER WATCHMAN CPT-48702 BMP - LAB USE ONLY 17:19:11 TOWER WATCH[employer] CPT-93354 PT/INR - LAB USE ONLY 17:19:10 [facility] CPT-39285 Venipuncture Draw Fee 17:19:10 [facility] CPT-87764 PT/INR - LAB USE ONLY 08:12:25 [facility] CPT-89614 Venipuncture Draw Fee 08:12:24 TOWER WATCH[employer] CPT-90307 Venipuncture Draw Fee 11:31:07 TOWER WATCHMAN CPT-72199 TPSA - LAB USE ONLY 11:31:07 TOWER WATCHMAN CPT-34137 PT/INR - LAB USE ONLY 11:31:07 TOWER WATCHMAN CPT-G0439 Subsequent Annual Wellness Exam 09:59:29 TOWER WATCHMAN CPT-58505 Creatinine - LAB USE ONLY 14:37:55 TOWER WATCHMAN CPT-27262 PT/INR - LAB USE ONLY 14:37:55 TOWER WATCHMAN CPT-28012 Venipuncture Draw Fee 14:37:55 TOWER WATCHMAN CPT-97256 LS spine comp w obliques - XRAY USE ONLY 12:59:25 TOWER WATCHMAN CPT-91073 PT/INR - LAB USE ONLY 13:49:20 CDT CPT-53512 Venipuncture Draw Fee 13:49:19 CDT CPT-18059 PT/INR - LAB USE ONLY 15:48:49 CDT CPT-90685 Venipuncture Draw Fee 15:48:49 CDT CPT-31840 Venipuncture Draw Fee 11:31:59 CDT CPT-85922 PT/INR - LAB USE ONLY 11:31:59 CDT CPT-04225 Venipuncture Draw Fee 13:29:15 CDT CPT-46733 Thoracolumbar AP/Lat 15:19:19 TOWER WATCHMAN CPT-G0438 Initial Annual Wellness Exam 12:18:54 TOWER WATCHMAN CPT-86583 Knee 3V 09:57:38 CDT CPT-OV Office Visit 15:45:01 TOWER WATCHMAN CPT-26519 Abd compl w upright 17:10:25 CDT
--- OUTSIDE RECORDS SUMMARY | 2018-07-18 09:51 | XMS REPORT | Clinical Summary ---
Author Author Admin, [employer] Organization [employer] Address Unknown Phone Unavailable Allergies, Adverse Reactions, [...] neoplasm of prostate V10.46 Active Alina Meyers YIELD LOSS INSPECTOR Personal history of malignant neoplasm of prostate Coronary artery disease 414.00 Active Alina Meyers YIELD LOSS INSPECTOR Coronary atherosclerosis of unspecified type of vessel, [place] or graft Back pain, thoracic region, left 724.1 Inactive Piotr Daley DO Pain in thoracic spine Thoracic back pain 724.5 Active Piotr Wilson Edi DO Backache, unspecified Back pain lumbar 724.2 Active Piotr Daley DO Lumbago Peripheral neuropathy, lower extremity, left 356.9 Active 02/19 Piotr W Edi DO Unspecified hereditary and idiopathic peripheral neuropathy Insect bite 919.4 Active Nella Harris YIELD LOSS INSPECTOR Insect bite, nonvenomous, of other, multiple, and unspecified sites, without mention of infection Pruritus 698.9 Active Nella Harris YIELD LOSS INSPECTOR Unspecified pruritic disorder FLANK PAIN, RIGHT ICD-789.09 Inactive Katrina Rinaldi MD PhD HEALTH MAINTENANCE EXAM ICD-V70.0 Inactive Katrina Rinaldi MD PhD BRONCHITIS-ACUTE ICD-466.0 Inactive Piotr Daley DO SCREENING, COLON CANCER ICD-V76.51 Inactive Katrina Rinaldi MD PhD BRONCHITIS-ACUTE ICD-466.0 Inactive Piotr Daley DO Bronchitis-Acute ICD-466.0 Inactive Pitor Daley DO Back pain, thoracic region, left ICD-724.1 Inactive Piotr Daley DO Medication List Medication Instructions Start Date Stop Date Generic Name NDC Status Provider Patient Instruction DOXYCYCLINE HYCLATE 100 MG CAP 1 cap by mouth BID x10 days 10/01 DOXYCYCLINE HYCLATE 65821640387 No Longer Active Nella Steven YIELD LOSS INSPECTOR Active WARFARIN SODIUM 5 MG TABS 1 tablet daily M-S, 1/2 tab on Heart WARFARIN SODIUM 06696303468 Active Nella Edgecombe YIELD LOSS INSPECTOR Active PROAIR HFA 108 (90 BASE) MCG/ACT AERS 1-2 puffs four times a day as needed ALBUTEROL SULFATE 24697879907 Active Matthew Rangel MD Active PREDNISONE 20 MG TAB 2 tabs daily for 3 days, 1 tab daily for 3 days, 1/2 tab daily for 2 days PREDNISONE 77996467120 No Longer Active Matthew Rangel MD Active TRAMADOL HCL 50 MG TABS 1 po tid with ES Tylenol TRAMADOL HCL 45089520338 No Longer Active Matthew Rangel MD Active GABAPENTIN 300 MG CAPS 1 po q hs for nerve pain GABAPENTIN 85128694982 No Longer Active Matthew Rangel MD Active PREDNISONE 20 MG TAB 2 tablets today, then 1 tablet days 2 through 4 PREDNISONE 68991844515 No Longer Active Piotr Daley DO Active AZITHROMYCIN 250 MG TABS 2 po qd x 1 day, then 1 po qd x 4 days AZITHROMYCIN 16906468323 No Longer Active Piotr Daley DO Active IBUPROFEN 800 MG TABS 1 tab every 8 hours as needed IBUPROFEN 04667513620 No Longer Active Piotr Daley DO Active LOMOTIL 2.5-0.025 MG TAB 1 to 2 four times a day as needed for diarrhea 10/13 DIPHENOXYLATE-ATROPINE 28543253426 No Longer Active Piotr Daley DO Active WARFARIN SODIUM 4 MG TABS 1 tab every evening WARFARIN SODIUM 39159437095 No Longer Active Piotr Daley DO Active PREDNISONE 20 MG TAB 1 tablet twice daily for 2 days, then 1 tablet once daily for 2 days PREDNISONE 52268091811 No Longer Active Piotr Daley DO Active PROMETHAZINE HCL 25 MG TABS 1 four times a day as needed for nausea/vomiting PROMETHAZINE HCL 87265428030 No Longer Active Piotr Daley DO Active TUSSIONEX PENNKINETIC ER 10-8 MG/5ML LQCR 5ml po q12hr PRN Cough HYDROCOD POLST-CHLORPHEN POLST 87633015856 No Longer Active Piotr Daley DO Active AZITHROMYCIN 250 MG TABS 2 po qd x 1 day, then 1 po qd x 4 days AZITHROMYCIN 58366545915 No Longer Active Piotr Daley DO Active AZITHROMYCIN 250 MG TABS 2 po qd x 1 day, then 1 po qd x 4 days AZITHROMYCIN 92415879194 No Longer Active Piotr Daley DO Active LISINOPRIL-HYDROCHLOROTHIAZIDE 10-12.5 MG TABS 1 tab by mouth daily LISINOPRIL-HYDROCHLOROTHIAZIDE 57941242391 Active Catalina Freitas Active LISINOPRIL 10 MG TABS 1/2-1 tab po every other day LISINOPRIL 48598570267 No Longer Active Piotr W Edi DO Active VENTOLIN HFA 108 (90 BASE) MCG/ACT AERS 2 puffs four times a day PRN cough ALBUTEROL SULFATE 07054608007 No Longer Active Piotr Daley DO Active NYSTATIN-TRIAMCINOLONE 043418-7.1 UNIT/GM-% CREA Apply to area BID NYSTATIN-TRIAMCINOLONE 85637806869 No Longer Active Alena Oswaldum GUEST EXPERIENCE REPRESENTATIVE Active PHISOHEX 3 % LIQD Use Directed HEXACHLOROPHENE 12802489225 No Longer Active Sandra [place] Active AZITHROMYCIN 250 MG TABS 2 po qd x 1 day, then 1 po qd x 4 days AZITHROMYCIN 46773000426 No Longer Active Katrnia Rinaldi MD PhD Active AZITHROMYCIN 250 MG TABS 2 po qd x 1 day, then 1 po qd x 4 days AZITHROMYCIN 04428231531 No Longer Active Piotr Daley DO Active AZITHROMYCIN 500 MG SOLR 1 po q day AZITHROMYCIN 35296371281 No Longer Active Piotr Daley DO Active NYSTATIN-TRIAMCINOLONE 191511-9.1 UNIT/GM-% CREA apply bid 08/19 NYSTATIN-TRIAMCINOLONE 46668870578 No Longer Active Piotr Daley DO Active IBUPROFEN 800 MG TABS 1 po q 8 hours prn pain sparinly IBUPROFEN 17569628605 No Longer Active Piotr Daley DO Active VITAMIN D3 5000 UNIT CAPS 1 po daily CHOLECALCIFEROL 81134065118 Active Piotr Daley DO Active IBUPROFEN 800 MG TABS 1 po q 8 hours prn pain sparinly IBUPROFEN 800 MG TABS 343840 IBUPROFEN Inactive NYSTATIN-TRIAMCINOLONE 773875-4.1 UNIT/GM-% CREA apply bid 08/19 NYSTATIN-TRIAMCINOLONE 325960-7.1 UNIT/GM-% CREA 5926600 NYSTATIN- TRIAMCINOLONE Inactive AZITHROMYCIN 500 MG SOLR 1 po q day AZITHROMYCIN 500 MG SOLR 57537973024 AZITHROMYCIN Inactive VENTOLIN HFA 108 (90 BASE) MCG/ACT AERS 2 puffs four times a day PRN cough VENTOLIN HFA 108 (90 BASE) MCG/ACT AERS ALBUTEROL SULFATE Inactive LISINOPRIL 10 MG TABS 1/2-1 tab po every other day LISINOPRIL 10 MG TABS 949750 LISINOPRIL Inactive TUSSIONEX PENNKINETIC ER 10-8 MG/5ML LQCR 5ml po q12hr PRN Cough TUSSIONEX PENNKINETIC ER 10-8 MG/5ML LQCR HYDROCOD POLST- CHLORPHEN POLST Inactive PROMETHAZINE HCL 25 MG TABS 1 four times a day as needed for nausea/vomiting PROMETHAZINE HCL 25 MG TABS 579476 PROMETHAZINE HCL Inactive PREDNISONE 20 MG TAB 1 tablet twice daily for 2 days, then 1 tablet once daily for 2 days PREDNISONE 20 MG TAB 428824 PREDNISONE Inactive WARFARIN SODIUM 4 MG TABS 1 tab every evening WARFARIN SODIUM 4 MG TABS 615155 WARFARIN SODIUM Inactive LOMOTIL 2.5-0.025 MG TAB 1 to 2 four times a day as needed for diarrhea 10/13 LOMOTIL 2.5-0.025 MG TAB 0982715 DIPHENOXYLATE-ATROPINE Inactive IBUPROFEN 800 MG TABS 1 tab every 8 hours as needed IBUPROFEN 800 MG TABS 228249 IBUPROFEN Inactive PREDNISONE 20 MG TAB 2 tablets today, then 1 tablet days 2 through 4 PREDNISONE 20 MG TAB 532741 PREDNISONE Inactive GABAPENTIN 300 MG CAPS 1 po q hs for nerve pain GABAPENTIN 300 MG CAPS 969075 GABAPENTIN Inactive TRAMADOL HCL 50 MG TABS 1 po tid with ES Tylenol TRAMADOL HCL 50 MG TABS 874662 TRAMADOL HCL Inactive AZITHROMYCIN 250 MG TABS 2 po qd x 1 day, then 1 po qd x 4 days AZITHROMYCIN 250 MG TABS 4007560 AZITHROMYCIN Inactive AZITHROMYCIN 250 MG TABS 2 po qd x 1 day, then 1 po qd x 4 days AZITHROMYCIN 250 MG TABS 6865332 AZITHROMYCIN Inactive NYSTATIN-TRIAMCINOLONE 315403-4.1 UNIT/GM-% CREA Apply to area BID NYSTATIN-TRIAMCINOLONE 024506-0.1 UNIT/GM-% CREA 9230702 NYSTATIN-TRIAMCINOLONE Inactive AZITHROMYCIN 250 MG TABS 2 po qd x 1 day, then 1 po qd x 4 days AZITHROMYCIN 250 MG TABS 4134414 AZITHROMYCIN Inactive AZITHROMYCIN 250 MG TABS 2 po qd x 1 day, then 1 po qd x 4 days AZITHROMYCIN 250 MG TABS 5177520 AZITHROMYCIN Inactive AZITHROMYCIN 250 MG TABS 2 po qd x 1 day, then 1 po qd x 4 days AZITHROMYCIN 250 MG TABS 9717963 AZITHROMYCIN Inactive PREDNISONE 20 MG TAB 2 tabs daily for 3 days, 1 tab daily for 3 days, 1/2 tab daily for 2 days PREDNISONE 20 MG TAB 743937 PREDNISONE Inactive DOXYCYCLINE HYCLATE 100 MG CAP 1 cap by mouth BID x10 days 10/01 DOXYCYCLINE HYCLATE 100 MG CAP 5349519 DOXYCYCLINE HYCLATE Inactive Advance Directives Directive Description [...] Panel - Chemistry sodium, serum 141 mmol/L 894-837 4091/01/24 potassium, serum 4.3 mmol/L 3.5-5.2 chloride, serum [...] % 11.0-15.0 platelet count 172 THOUSAND/UL 10*3/mm3 466-862 2942/04/12 mean platelet volume 8.6 fL 7.5-12.5 Lab Report: Comp. Metabolic Panel - Chemistry sodium, serum 141 mmol/L 701-443 7623/06/28 carbon dioxide, venous blood 31.0 mmol/L 21.0-32.0 [...] 18.9-24.9 Encounters Code Encounter Date Provider Facility CPT-68977 Level 3 Est. Patient 17:10:19 CDJose Harris APRN [facility] CPT-68421 Level 3 Est. Patient 10:48:17 STAFF RADIATION THERAPIST Matthew Rangel MD [facility] CPT-59853 Level 4 Est. Patient 17:15:07 STAFF RADIATION THERAPIST Piotr Daley DO [facility] CPT-40950 Level 3 Est. Patient 12:46:13 STAFF RADIATION THERAPIST Piotr Daley [facility] CPT-64653 Level 3 Est. Patient 15:14:31 STAFF RADIATION THERAPIST Piotr Daley [facility] CPT-23123 Level 3 Est. Patient 09:20:13 STAFF RADIATION THERAPIST Piotr Daley [facility] CPT-80377 Level 3 Est. Patient 09:49:40 CDT Piotr Daley [facility] CPT-44073 Level 3 Est. Patient 16:28:11 CDT Piotr Daley [facility] CPT-54012 Level 3 Est. Patient 12:41:58 STAFF RADIATION THERAPIST Piotr Daley [facility] CPT-65864 Level 3 Est. Patient 09:21:24 CDT Piotr Daley [facility] CPT-50525 Level 3 Est. Patient 09:21:11 CDT Piotr Daley [facility] CPT-82512 Level 3 Est. Patient 11:16:29 STAFF RADIATION THERAPIST Piotr Daley [facility] CPT-38694 Level 3 Est. Patient 18:40:19 STAFF RADIATION THERAPIST Piotr Daley [facility] CPT-26908 Level 3 Est. Patient 19:30:50 CDT Piotr Daley [facility] CPT-87273 Level 3 Est. Patient 22:06:44 CDT Katrina Rinaldi MD PhD [facility]-35708 Level 3 Est. Patient 14:20:00 CDT Piotr Daley [facility] CPT-45556 Level 3 Est. Patient 14:15:22 STAFF RADIATION THERAPIST Piotr Daley [facility] CPT-05493 Level 3 Est. Patient 20:19:57 STAFF RADIATION THERAPIST Piotr Daley [facility] CPT-29316 Level 3 Est. Patient 16:44:32 CDT Piotr Daley [facility] CPT-51881 Level 3 Est. Patient 08:48:46 STAFF RADIATION THERAPIST Piotr Daley [facility] CPT-05897 Level 3 Est. Patient 21:01:21 CDT Piotr Daley [facility] Procedures Code Procedure Name Date Entry Date Standard Description CPT-42647 BMP - LAB USE ONLY 17:19:11 STAFF RADIATION THERAPIST CPT-10599 PT/INR - LAB USE ONLY 17:19:10 STAFF RADIATION THERAPIST CPT-22462 Venipuncture Draw Fee 17:19:10 STAFF RADIATION THERAPIST CPT-15571 PT/INR - LAB USE ONLY 08:12:25 STAFF RADIATION THERAPIST CPT-70885 Venipuncture Draw Fee 08:12:24 STAFF RADIATION THERAPIST CPT-83832 Venipuncture Draw Fee 11:31:07 STAFF RADIATION THERAPIST CPT-28083 TPSA - LAB USE ONLY 11:31:07 STAFF RADIATION THERAPIST CPT-26574 PT/INR - LAB USE ONLY 11:31:07 STAFF RADIATION THERAPIST CPT-G0439 [facility] Annual Wellness Exam 09:59:29 STAFF RADIATION THERAPIST CPT-35301 Creatinine - LAB USE ONLY 14:37:55 STAFF RADIATION THERAPIST CPT-08969 PT/INR - LAB USE ONLY 14:37:55 STAFF RADIATION THERAPIST CPT-09376 Venipuncture Draw Fee 14:37:55 STAFF RADIATION THERAPIST CPT-61566 LS spine comp w obliques - XRAY USE ONLY 12:59:25 STAFF RADIATION THERAPIST CPT-00748 PT/INR - LAB USE ONLY 13:49:20 CDT CPT-18154 Venipuncture Draw Fee 13:49:19 CDT CPT-50199 PT/INR - LAB USE ONLY 15:48:49 CDT CPT-74429 Venipuncture Draw Fee 15:48:49 CDT CPT-68907 Venipuncture Draw Fee 11:31:59 CDT CPT-79664 PT/INR - LAB USE ONLY 11:31:59 CDT CPT-79076 Venipuncture Draw Fee 13:29:15 CDT CPT-08291 Thoracolumbar AP/Lat 15:19:19 STAFF RADIATION THERAPIST CPT-G0438 Initial Annual Wellness Exam 12:18:54 STAFF RADIATION THERAPIST CPT-68114 Knee 3V 09:57:38 CDT CPT-OV Office Visit 15:45:01 STAFF RADIATION THERAPIST CPT-55637 Abd compl w upright 17:10:25 CDT
--- OUTSIDE RECORDS SUMMARY | 2018-07-18 09:52 | XMS REPORT | Clinical Summary ---
Author Author Admin, [employer] Organization [employer] Address Unknown Phone Unavailable Allergies, Adverse [...] mention of cerebral infarction HYPERTENSION 401.9 Active iPotr Daley DO Unspecified essential hypertension FLANK PAIN, [...] neoplasm of prostate V10.46 Active Alina Meyers WIRELINE OPERATOR Personal history of malignant neoplasm of prostate Coronary artery disease 414.00 Active Alina Meyers APRN Coronary atherosclerosis of unspecified type of vessel, [place] or graft Back pain, thoracic region, left [...] po q hs for nerve pain GABAPENTIN 26769895351 Active Piotr Daley DO Active WARFARIN SODIUM 5 MG TABS 1 tablet daily WARFARIN SODIUM 50962877675 Active Simi Meyers Active TRAMADOL HCL 50 MG TABS 1 po tid with ES Tylenol TRAMADOL HCL 89295777924 Active Piotr Daley DO Active PREDNISONE 20 MG TAB 2 tablets today, then 1 tablet days 2 through 4 PREDNISONE 72302806462 No Longer Active Piotr Daley DO Active AZITHROMYCIN 250 MG TABS 2 po qd x 1 day, then 1 po qd x 4 days AZITHROMYCIN 02830601170 No Longer Active Piotr Daley DO Active IBUPROFEN 800 MG TABS 1 tab every 8 hours as needed IBUPROFEN 08957638975 No Longer Active Piotr Daley DO Active LOMOTIL 2.5-0.025 MG TAB 1 to 2 four times a day as needed for diarrhea 10/13 DIPHENOXYLATE-ATROPINE 41685509641 No Longer Active Piotr Daley DO Active WARFARIN SODIUM 4 MG TABS 1 tab every evening WARFARIN SODIUM 77475464878 No Longer Active Piotr Daley DO Active PREDNISONE 20 MG TAB 1 tablet twice daily for 2 days, then 1 tablet once daily for 2 days PREDNISONE 69818042346 No Longer Active Piotr Daley DO Active PROMETHAZINE HCL 25 MG TABS 1 four times a day as needed for nausea/vomiting PROMETHAZINE HCL 71377301535 No Longer Active Piotr Daley DO Active TUSSIONEX PENNKINETIC ER 10-8 MG/5ML LQCR 5ml po q12hr PRN Cough HYDROCOD POLST-CHLORPHEN POLST 53323824040 No Longer Active Piotr Daley DO Active AZITHROMYCIN 250 MG TABS 2 po qd x 1 day, then 1 po qd x 4 days AZITHROMYCIN 08948948486 No Longer Active Piotr Daley DO Active AZITHROMYCIN 250 MG TABS 2 po qd x 1 day, then 1 po qd x 4 days AZITHROMYCIN 98896163367 No Longer Active Piotr Daley DO Active LISINOPRIL-HYDROCHLOROTHIAZIDE 10-12.5 MG TABS 1 tab by mouth daily LISINOPRIL-HYDROCHLOROTHIAZIDE 76758784946 Active Simi Meyers Active LISINOPRIL 10 MG TABS 1/2-1 tab po every other day LISINOPRIL 53584424692 No Longer Active Piotr Daley DO Active VENTOLIN HFA 108 (90 BASE) MCG/ACT AERS 2 puffs four times a day PRN cough ALBUTEROL SULFATE 25917820246 No Longer Active Piotr Daley DO Active NYSTATIN-TRIAMCINOLONE 205589-0.1 UNIT/GM-% CREA Apply to area BID NYSTATIN-TRIAMCINOLONE 83166164976 No Longer Active Alena Chavira FINISHING LAB TECHNICIAN Active PHISOHEX 3 % LIQD Use Directed HEXACHLOROPHENE 17961172266 No Longer Active Sandra Powderly Active AZITHROMYCIN 250 MG TABS 2 po qd x 1 day, then 1 po qd x 4 days AZITHROMYCIN 21598536892 No Longer Active Katrina Rinaldi MD PhD Active AZITHROMYCIN 250 MG TABS 2 po qd x 1 day, then 1 po qd x 4 days AZITHROMYCIN 29063238604 No Longer Active Piotr Daley DO Active AZITHROMYCIN 500 MG SOLR 1 po q day AZITHROMYCIN 33442879921 No Longer Active Piotr Daley DO Active NYSTATIN-TRIAMCINOLONE 372587-8.1 UNIT/GM-% CREA apply bid 08/19 NYSTATIN-TRIAMCINOLONE 28685513998 No Longer Active Piotr Daley DO Active IBUPROFEN 800 MG TABS 1 po q 8 hours prn pain sparinly IBUPROFEN 55577847700 No Longer Active Piotr Daley DO Active VITAMIN D3 5000 UNIT CAPS 1 po daily CHOLECALCIFEROL 19826211429 Active Piotr Daley DO Active IBUPROFEN 800 MG TABS 1 po q 8 hours prn pain sparinly IBUPROFEN 800 MG TABS 372485 IBUPROFEN Inactive NYSTATIN-TRIAMCINOLONE 543045-0.1 UNIT/GM-% CREA apply bid 08/19 NYSTATIN-TRIAMCINOLONE 883480-1.1 UNIT/GM-% CREA 8313620 NYSTATIN- TRIAMCINOLONE Inactive AZITHROMYCIN 500 MG SOLR 1 po q day AZITHROMYCIN 500 MG SOLR 83950745529 AZITHROMYCIN Inactive VENTOLIN HFA 108 (90 BASE) MCG/ACT AERS 2 puffs four times a day PRN cough VENTOLIN HFA 108 (90 BASE) MCG/ACT AERS ALBUTEROL SULFATE Inactive LISINOPRIL 10 MG TABS 1/2-1 tab po every other day LISINOPRIL 10 MG TABS 528617 LISINOPRIL Inactive TUSSIONEX PENNKINETIC ER 10-8 MG/5ML LQCR 5ml po q12hr PRN Cough TUSSIONEX PENNKINETIC ER 10-8 MG/5ML LQCR HYDROCOD POLST- CHLORPHEN POLST Inactive PROMETHAZINE HCL 25 MG TABS 1 four times a day as needed for nausea/vomiting PROMETHAZINE HCL 25 MG TABS 699146 PROMETHAZINE HCL Inactive PREDNISONE 20 MG TAB 1 tablet twice daily for 2 days, then 1 tablet once daily for 2 days PREDNISONE 20 MG TAB 674771 PREDNISONE Inactive WARFARIN SODIUM 4 MG TABS 1 tab every evening WARFARIN SODIUM 4 MG TABS 419831 WARFARIN SODIUM Inactive LOMOTIL 2.5-0.025 MG TAB 1 to 2 four times a day as needed for diarrhea 10/13 LOMOTIL 2.5-0.025 MG TAB 6509080 DIPHENOXYLATE-ATROPINE Inactive IBUPROFEN 800 MG TABS 1 tab every 8 hours as needed IBUPROFEN 800 MG TABS 446487 IBUPROFEN Inactive PREDNISONE 20 MG TAB 2 tablets today, then 1 tablet days 2 through 4 PREDNISONE 20 MG TAB 233826 PREDNISONE Inactive AZITHROMYCIN 250 MG TABS 2 po qd x 1 day, then 1 po qd x 4 days AZITHROMYCIN 250 MG TABS 2603949 AZITHROMYCIN Inactive AZITHROMYCIN 250 MG TABS 2 po qd x 1 day, then 1 po qd x 4 days AZITHROMYCIN 250 MG TABS 4090560 AZITHROMYCIN Inactive NYSTATIN-TRIAMCINOLONE 989583-6.1 UNIT/GM-% CREA Apply to area BID NYSTATIN-TRIAMCINOLONE 862467-7.1 UNIT/GM-% CREA 7433535 NYSTATIN-TRIAMCINOLONE Inactive AZITHROMYCIN 250 MG TABS 2 po qd x 1 day, then 1 po qd x 4 days AZITHROMYCIN 250 MG TABS 2035902 AZITHROMYCIN Inactive AZITHROMYCIN 250 MG TABS 2 po qd x 1 day, then 1 po qd x 4 days AZITHROMYCIN 250 MG TABS 4877371 AZITHROMYCIN Inactive AZITHROMYCIN 250 MG TABS 2 po qd x 1 day, then 1 po qd x 4 days AZITHROMYCIN 250 MG TABS 3082119 AZITHROMYCIN Inactive Advance Directives Directive Description Start [...] Panel - Chemistry sodium, serum 141 mmol/L 206-956 1582/06/28 carbon dioxide, venous blood 31.0 mmol/L 21.0-32.0 [...] 1.0-3.5 Encounters Code Encounter Date Provider Facility CPT-95233 Level 4 Est. Patient 17:15:07 RAILROAD INSPECTOR Piotr Dlaey DO [facility] CPT-43621 Level 3 Est. Patient 12:46:13 RAILROAD INSPECTOR Piotr Daley [facility] CPT-06453 Level 3 Est. Patient 15:14:31 RAILROAD INSPECTOR Piotr Daley DO [facility] CPT-79509 Level 3 Est. Patient 09:20:13 RAILROAD INSPECTOR Piotr Daley [facility] CPT-83926 Level 3 Est. Patient 09:49:40 CDT Piotr Daley [facility] CPT-08407 Level 3 Est. Patient 16:28:11 CDT Piotr Daley [facility] CPT-00598 Level 3 Est. Patient 12:41:58 RAILROAD INSPECTOR Piotr Daley [facility] CPT-77116 Level 3 Est. Patient 09:21:24 CDT Piotr Daley [facility] CPT-20139 Level 3 Est. Patient 09:21:11 CDT Piotr Daley [facility] CPT-71916 Level 3 Est. Patient 11:16:29 RAILROAD INSPECTOR Piotr Daley [facility] CPT-38173 Level 3 Est. Patient 18:40:19 RAILROAD INSPECTOR Piotr Daley [facility] CPT-23613 Level 3 Est. Patient 19:30:50 CDT Piotr Daley [facility] CPT-99871 Level 3 Est. Patient 22:06:44 CDT Katrina Rinaldi MD [facility] CPT-06959 Level 3 Est. Patient 14:20:00 CDT Piotr Daley [facility] CPT-85290 Level 3 Est. Patient 14:15:22 RAILROAD INSPECTOR Piotr Daley [facility] CPT-06672 Level 3 Est. Patient 20:19:57 RAILROAD INSPECTOR Piotr Wilson Edi [facility] CPT-78702 Level 3 Est. Patient 16:44:32 CDT Piotr Katie Edi [facility] CPT-88229 Level 3 Est. Patient 08:48:46 RAILROAD INSPECTOR Piotr Daley [facility] CPT-90315 Level 3 Est. Patient 21:01:21 CDT Piotr Daley [facility] Procedures Code Procedure Name Date Entry Date Standard Description CPT-20148 PT/INR - LAB USE ONLY 08:12:25 RAILROAD INSPECTOR CPT-39704 Venipuncture Draw Fee 08:12:24 RAILROAD INSPECTOR CPT-08306 Venipuncture Draw Fee 11:31:07 RAILROAD INSPECTOR CPT-40299 TPSA - LAB USE ONLY 11:31:07 RAILROAD INSPECTOR CPT-99097 PT/INR - LAB USE ONLY 11:31:07 [facility] CPT-G0439 Subsequent Annual Wellness Exam 09:59:29 RAILROAD INSPECTOR CPT-73725 Creatinine - LAB USE ONLY 14:37:55 RAILROAD INSPECTOR CPT-68792 PT/INR - LAB USE ONLY 14:37:55 [facility] CPT-96930 Venipuncture Draw Fee 14:37:55 [facility] CPT-03728 LS spine comp w obliques - XRAY USE ONLY 12:59:25 [facility] CPT-25697 PT/INR - LAB USE ONLY 13:49:20 CDT CPT-06913 Venipuncture Draw Fee 13:49:19 CDT CPT-02937 PT/INR - LAB USE ONLY 15:48:49 CDT CPT-33485 Venipuncture Draw Fee 15:48:49 CDT CPT-10151 Venipuncture Draw Fee 11:31:59 CDT CPT-92558 PT/INR - LAB USE ONLY 11:31:59 CDT CPT-66273 Venipuncture Draw Fee 13:29:15 CDT CPT-50289 Thoracolumbar AP/Lat 15:19:19 RAILROAD INSPECTOR CPT-G0438 Initial Annual Wellness Exam 12:18:54 RAILROAD INSPECTOR CPT-43463 Knee 3V 09:57:38 CDT CPT-OV Office Visit 15:45:01 RAILROAD INSPECTOR CPT-31429 Abd compl w upright 17:10:25 CDT
--- OUTSIDE RECORDS SUMMARY | 2018-07-18 09:53 | XMS REPORT | Clinical Summary ---
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 Personal history of malignant neoplasm of [...] Knee pain, left ICD-719.46 Inactive Sirisha Chen SACK REPAIRER Actinic keratoses ICD-702.0 Inactive Sirisha Chen SACK REPAIRER Back pain, thoracic region, left ICD-724.1 Inactive Piotr Daley DO Thoracic back pain ICD-724.5 Inactive Sirisha Chen SACK REPAIRER Back pain lumbar ICD-724.2 Inactive Sirisha Chen SACK REPAIRER Insect bite ICD-919.4 Inactive Sirisha Chen SACK REPAIRER Pruritus ICD-698.9 Inactive Sirisha Chen SACK REPAIRER 04/09 Bronchitis-Acute ICD-466.0 Inactive Sirisha Chen SACK REPAIRER Dyspnea ICD-786.09 Inactive Sirisha Chen SACK REPAIRER 05/09 Medication List Medication Instructions Start Date Stop Date Generic Name NDC Status Provider Patient Instruction WARFARIN SODIUM 4 MG ORAL TABLET 1 tablet by mouth daily WARFARIN SODIUM 08996244282 Active Anahy Loja Active MELOXICAM 15 MG ORAL TABLET 1 po q day for pain with food MELOXICAM 64250323097 Active Piotr Daley DO Active PREDNISONE 10 MG ORAL TABLET 1 tablet by mouth daily PREDNISONE 12635312663 No Longer Active Emelyn Norris Active TESSALON PERLES 100 MG ORAL CAPSULE 1-2 tablet by mouth 3 times daily 04/16 BENZONATATE 06255510944 No Longer Active Emelyn Norris Active PREDNISONE 20 MG ORAL TABLET two tabs by mouth today, then one tab by mouth days two and three PREDNISONE 45290605226 No Longer Active Piotr Daley DO Active CYCLOBENZAPRINE HCL 10 MG ORAL TABLET 1 tablet by mouth three times daily as needed for muscle spasm/pain CYCLOBENZAPRINE HCL 28530192370 Active Sirisha Gustavo SACK REPAIRER Active ZITHROMAX 250 MG ORAL TABLET Take two (2 ) tablets day one, then one (1) tablet a day for four (4) more days AZITHROMYCIN 56362532030 No Longer Active Piotr Daley DO Active PROAIR HFA 108 (90 BASE) MCG/ACT INHALATION AEROSOL SOLUTION 1-2 puffs four times a day as needed ALBUTEROL SULFATE 52367264066 No Longer Active Emelyn Norris Active DOXYCYCLINE HYCLATE 100 MG ORAL CAPSULE 1 cap by mouth BID x10 days DOXYCYCLINE HYCLATE 38552661309 No Longer Active Nella Harris APRN Active PREDNISONE 20 MG ORAL TABLET 2 tabs daily for 3 days, 1 tab daily for 3 days, 1/2 tab daily for 2 days PREDNISONE 17390960668 No Longer Active Matthew Rangel MD Active TRAMADOL HCL 50 MG ORAL TABLET 1 po tid with ES Tylenol TRAMADOL HCL 71789902916 No Longer Active Matthew Rangel MD Active GABAPENTIN 300 MG ORAL CAPSULE 1 po q hs for nerve pain GABAPENTIN 72518802583 No Longer Active Matthew Rangel MD Active PREDNISONE 20 MG ORAL TABLET 2 tablets today, then 1 tablet days 2 through 4 PREDNISONE 93053828670 No Longer Active Piotr Daley DO Active AZITHROMYCIN 250 MG ORAL TABLET 2 po qd x 1 day, then 1 po qd x 4 days 07/12 AZITHROMYCIN 18854153849 No Longer Active Piotr Daley DO Active IBUPROFEN 800 MG ORAL TABLET 1 tab every 8 hours as needed 07/12 IBUPROFEN 66764544392 No Longer Active Piotr Daley DO Active LOMOTIL 2.5-0.025 MG ORAL TABLET 1 to 2 four times a day as needed for diarrhea DIPHENOXYLATE-ATROPINE 81880426453 No Longer Active Piotr W Edi DO Active WARFARIN SODIUM 4 MG ORAL TABLET 1 tab every evening WARFARIN SODIUM 67193637935 No Longer Active Piotr Daley DO Active PREDNISONE 20 MG ORAL TABLET 1 tablet twice daily for 2 days, then 1 tablet once daily for 2 days PREDNISONE 79347570945 No Longer Active Piotr Daley DO Active PROMETHAZINE HCL 25 MG ORAL TABLET 1 four times a day as needed for nausea/ vomiting PROMETHAZINE HCL 70985979661 No Longer Active Piotr Daley DO Active TUSSIONEX PENNKINETIC ER 10-8 MG/5ML ORAL SUSPENSION EXTENDED RELEASE 5ml po q12hr PRN Cough HYDROCOD POLST-CHLORPHEN POLST 38254755101 No Longer Active Piotr Daley DO Active AZITHROMYCIN 250 MG ORAL TABLET 2 po qd x 1 day, then 1 po qd x 4 days 10/13 AZITHROMYCIN 16565243816 No Longer Active Piotr Daley DO Active AZITHROMYCIN 250 MG ORAL TABLET 2 po qd x 1 day, then 1 po qd x 4 days 05/07 AZITHROMYCIN 99978321525 No Longer Active Piotr Daley DO Active LISINOPRIL-HYDROCHLOROTHIAZIDE 10-12.5 MG ORAL TABLET 1 tab by mouth daily LISINOPRIL-HYDROCHLOROTHIAZIDE 74000480291 Active Piotr Daley DO Active LISINOPRIL 10 MG ORAL TABLET 1/2-1 tab po every other day LISINOPRIL 71268682659 No Longer Active Piotr Daley DO Active VENTOLIN HFA 108 (90 Base) MCG/ACT INHALATION AEROSOL SOLUTION 2 puffs four times a day PRN cough ALBUTEROL SULFATE 45637244979 No Longer Active Piotr Daley DO Active NYSTATIN-TRIAMCINOLONE 812251-7.1 UNIT/GM-% EXTERNAL CREAM Apply to area BID NYSTATIN-TRIAMCINOLONE 93343108733 No Longer Active Alena Chavira SACK REPAIRER Active PHISOHEX 3 % LIQD Use Directed HEXACHLOROPHENE 38871637927 No Longer Active Sandra Cutler Active AZITHROMYCIN 250 MG ORAL TABLET 2 po qd x 1 day, then 1 po qd x 4 days 10/21 AZITHROMYCIN 33839248758 No Longer Active Katrina Rinaldi MD PhD Active AZITHROMYCIN 250 MG ORAL TABLET 2 po qd x 1 day, then 1 po qd x 4 days 10/16 AZITHROMYCIN 32898349778 No Longer Active Piotr Daley DO Active AZITHROMYCIN 500 MG INTRAVENOUS SOLUTION RECONSTITUTED 1 po q day AZITHROMYCIN 24735049513 No Longer Active Piotr Daley DO Active NYSTATIN-TRIAMCINOLONE 237114-3.1 UNIT/GM-% EXTERNAL CREAM apply bid NYSTATIN-TRIAMCINOLONE 93509586456 No Longer Active Piotr Daley DO Active IBUPROFEN 800 MG ORAL TABLET 1 po q 8 hours prn pain sparinly IBUPROFEN 29567335262 No Longer Active Piotr Daley DO Active VITAMIN D3 5000 UNIT ORAL CAPSULE 1 po daily CHOLECALCIFEROL 31585123998 Active Piotr Daley DO Active IBUPROFEN 800 MG ORAL TABLET 1 po q 8 hours prn pain sparinly IBUPROFEN 800 MG ORAL TABLET 172204 IBUPROFEN Inactive NYSTATIN-TRIAMCINOLONE 778205-5.1 UNIT/GM-% EXTERNAL CREAM apply bid NYSTATIN-TRIAMCINOLONE 215713-2.1 UNIT/GM-% EXTERNAL CREAM 8950364 NYSTATIN-TRIAMCINOLONE Inactive AZITHROMYCIN 500 MG INTRAVENOUS SOLUTION RECONSTITUTED 1 po q day AZITHROMYCIN 500 MG INTRAVENOUS SOLUTION RECONSTITUTED 55384098510 AZITHROMYCIN Inactive VENTOLIN HFA 108 (90 Base) MCG/ACT INHALATION AEROSOL SOLUTION 2 puffs four times a day PRN cough VENTOLIN HFA 108 (90 Base) MCG/ ACT INHALATION AEROSOL SOLUTION ALBUTEROL SULFATE Inactive LISINOPRIL 10 MG ORAL TABLET 1/2-1 tab po every other day LISINOPRIL 10 MG ORAL TABLET 891959 LISINOPRIL Inactive TUSSIONEX PENNKINETIC ER 10-8 MG/5ML ORAL SUSPENSION EXTENDED RELEASE 5ml po q12hr PRN Cough TUSSIONEX PENNKINETIC ER 10-8 MG/5ML ORAL SUSPENSION EXTENDED RELEASE HYDROCOD POLST-CHLORPHEN POLST Inactive PROMETHAZINE HCL 25 MG ORAL TABLET 1 four times a day as needed for nausea/ vomiting PROMETHAZINE HCL 25 MG ORAL TABLET 908641 PROMETHAZINE HCL Inactive PREDNISONE 20 MG ORAL TABLET 1 tablet twice daily for 2 days, then 1 tablet once daily for 2 days PREDNISONE 20 MG ORAL TABLET 992990 PREDNISONE Inactive WARFARIN SODIUM 4 MG ORAL TABLET 1 tab every evening WARFARIN SODIUM 4 MG ORAL TABLET 603992 WARFARIN SODIUM Inactive LOMOTIL 2.5-0.025 MG ORAL TABLET 1 to 2 four times a day as needed for diarrhea LOMOTIL 2.5-0.025 MG ORAL TABLET 9326688 DIPHENOXYLATE-ATROPINE Inactive IBUPROFEN 800 MG ORAL TABLET 1 tab every 8 hours as needed 07/12 IBUPROFEN 800 MG ORAL TABLET 501472 IBUPROFEN Inactive PREDNISONE 20 MG ORAL TABLET 2 tablets today, then 1 tablet days 2 through 4 PREDNISONE 20 MG ORAL TABLET 343618 PREDNISONE Inactive GABAPENTIN 300 MG ORAL CAPSULE 1 po q hs for nerve pain GABAPENTIN 300 MG ORAL CAPSULE 254108 GABAPENTIN Inactive TRAMADOL HCL 50 MG ORAL TABLET 1 po tid with ES Tylenol TRAMADOL HCL 50 MG ORAL TABLET 550853 TRAMADOL HCL Inactive PROAIR HFA 108 (90 BASE) MCG/ACT INHALATION AEROSOL SOLUTION 1-2 puffs four times a day as needed PROAIR HFA 108 (90 BASE) MCG/ACT INHALATION AEROSOL SOLUTION ALBUTEROL SULFATE Inactive PREDNISONE 20 MG ORAL TABLET two tabs by mouth today, then one tab by mouth days two and three PREDNISONE 20 MG ORAL TABLET 329886 PREDNISONE Inactive TESSALON PERLES 100 MG ORAL CAPSULE 1-2 tablet by mouth 3 times daily 04/16 TESSALON PERLES 100 MG ORAL CAPSULE 056519 BENZONATATE Inactive PREDNISONE 10 MG ORAL TABLET 1 tablet by mouth daily PREDNISONE 10 MG ORAL TABLET 369407 PREDNISONE Inactive AZITHROMYCIN 250 MG ORAL TABLET 2 po qd x 1 day, then 1 po qd x 4 days 10/16 AZITHROMYCIN 250 MG ORAL TABLET 177558 AZITHROMYCIN Inactive AZITHROMYCIN 250 MG ORAL TABLET 2 po qd x 1 day, then 1 po qd x 4 days 10/21 AZITHROMYCIN 250 MG ORAL TABLET 651818 AZITHROMYCIN Inactive NYSTATIN-TRIAMCINOLONE 839372-1.1 UNIT/GM-% EXTERNAL CREAM Apply to area BID NYSTATIN-TRIAMCINOLONE 239626-7.1 UNIT/GM-% EXTERNAL CREAM 3811161 NYSTATIN-TRIAMCINOLONE Inactive AZITHROMYCIN 250 MG ORAL TABLET 2 po qd x 1 day, then 1 po qd x 4 days 05/07 AZITHROMYCIN 250 MG ORAL TABLET 186671 AZITHROMYCIN Inactive AZITHROMYCIN 250 MG ORAL TABLET 2 po qd x 1 day, then 1 po qd x 4 days 10/13 AZITHROMYCIN 250 MG ORAL TABLET 143726 AZITHROMYCIN Inactive AZITHROMYCIN 250 MG ORAL TABLET 2 po qd x 1 day, then 1 po qd x 4 days 07/12 AZITHROMYCIN 250 MG ORAL TABLET 444988 AZITHROMYCIN Inactive PREDNISONE 20 MG ORAL TABLET 2 tabs daily for 3 days, 1 tab daily for 3 days, 1/2 tab daily for 2 days PREDNISONE 20 MG ORAL TABLET 299864 PREDNISONE Inactive DOXYCYCLINE HYCLATE 100 MG ORAL CAPSULE 1 cap by mouth BID x10 days DOXYCYCLINE HYCLATE 100 MG ORAL CAPSULE 8596161 DOXYCYCLINE HYCLATE Inactive ZITHROMAX 250 MG ORAL TABLET Take two (2 ) tablets day one, then one (1) tablet a day for four (4) more days ZITHROMAX 250 MG ORAL TABLET 536122 AZITHROMYCIN Inactive Advance Directives Directive Description Start [...] 18.9-24.9 Encounters Code Encounter Date Provider Facility CPT-28591 Level 3 Est. Patient 15:59:25 FULL FASHIONED GARMENT KNITTER Piotr Daley [facility] CPT-49695 Level 3 Est. Patient 12:33:59 FULL FASHIONED GARMENT KNITTER Piotr Daley [facility] CPT-13226 Level 3 Est. Patient 15:56:17 FULL FASHIONED GARMENT KNITTER Piotr Daley [facility] CPT-24896 Level 3 Est. Patient 10:34:54 FULL FASHIONED GARMENT KNITTER Piotr Daley [facility] CPT-75756 Level 3 Est. Patient 17:10:19 CDT Nella Harris APRN [facility] CPT-26851 Level 3 Est. Patient 10:48:17 FULL FASHIONED GARMENT KNITTER Matthew Rangel MD [facility] CPT-19397 Level 4 Est. Patient 17:15:07 FULL FASHIONED GARMENT KNITTER Piotr Daley [facility] CPT-67370 Level 3 Est. Patient 12:46:13 FULL FASHIONED GARMENT KNITTER Piotr Daley [facility] CPT-99271 Level 3 Est. Patient 15:14:31 FULL FASHIONED GARMENT KNITTER Piotr Daley [facility] CPT-40726 Level 3 Est. Patient 09:20:13 FULL FASHIONED GARMENT KNITTER Piotr Katie Edi [facility] CPT-16478 Level 3 Est. Patient 09:49:40 CDT Piotr Wilson [facility] CPT-11274 Level 3 Est. Patient 16:28:11 CDT Piotr Katie Daley [facility] CPT-24644 Level 3 Est. Patient 12:41:58 FULL FASHIONED GARMENT KNITTER Piotr Katie Edi [facility] CPT-67682 Level 3 Est. Patient 09:21:24 CDT Piotr Wilson [facility] CPT-81599 Level 3 Est. Patient 09:21:11 CDT Piotr Wilson [facility] CPT-32817 Level 3 Est. Patient 11:16:29 FULL FASHIONED GARMENT KNITTER Piotr Daley [facility] CPT-60104 Level 3 Est. Patient 18:40:19 FULL FASHIONED GARMENT KNITTER Piotr Daley [facility] CPT-74887 Level 3 Est. Patient 19:30:50 CDT Piotr Daley [facility] CPT-06746 Level 3 Est. Patient 22:06:44 CDT Katrina Rinaldi MD [facility] CPT-95833 Level 3 Est. Patient 14:20:00 CDT Piotr Daley [facility] CPT-31627 Level 3 Est. Patient 14:15:22 FULL FASHIONED GARMENT KNITTER Piotr Daley [facility] CPT-32953 Level 3 Est. Patient 20:19:57 FULL FASHIONED GARMENT KNITTER Piotr Daley [facility] CPT-99811 Level 3 Est. Patient 16:44:32 CDT Piotr Daley [facility] CPT-19089 Level 3 Est. Patient 08:48:46 FULL FASHIONED GARMENT KNITTER Piotr Daley [facility] CPT-91148 Level 3 Est. Patient 21:01:21 CDT Piotr Wilson [facility] Procedures Code Procedure Name Date Entry Date Standard Description CPT-66909 Sacroiliac jt < 3V - XRAY USE ONLY 16:45:19 FULL FASHIONED GARMENT KNITTER 05/09 CPT-69733 LS spine comp w obliques - XRAY USE ONLY 14:52:26 FULL FASHIONED GARMENT KNITTER CPT-47743 Chest, 2 views 12:55:58 FULL FASHIONED GARMENT KNITTER CPT-G0439 [facility] Annual Wellness Exam 10:34:52 FULL FASHIONED GARMENT KNITTER CPT-21981 BMP - LAB USE ONLY 17:19:11 FULL FASHIONED GARMENT KNITTER CPT-93585 PT/INR - LAB USE ONLY 17:19:10 FULL FASHIONED GARMENT KNITTER CPT-96495 Venipuncture Draw Fee 17:19:10 FULL FASHIONED GARMENT KNITTER CPT-33273 PT/INR - LAB USE ONLY 08:12:25 FULL FASHIONED GARMENT KNITTER CPT-31898 Venipuncture Draw Fee 08:12:24 FULL FASHIONED GARMENT KNITTER CPT-18513 Venipuncture Draw Fee 11:31:07 FULL FASHIONED GARMENT KNITTER CPT-94873 TPSA - LAB USE ONLY 11:31:07 [facility] CPT-76586 PT/INR - LAB USE ONLY 11:31:07 FULL FASHIONED GARMENT KNITTER CPT-G0439 Subsequent Annual Wellness Exam 09:59:29 FULL FASHIONED GARMENT KNITTER CPT-57206 Creatinine - LAB USE ONLY 14:37:55 FULL FASHIONED GARMENT KNITTER CPT-17823 PT/INR - LAB USE ONLY 14:37:55 [facility] CPT-30445 Venipuncture Draw Fee 14:37:55 [facility] CPT-96526 LS spine comp w obliques - XRAY USE ONLY 12:59:25 [facility] CPT-88296 PT/INR - LAB USE ONLY 13:49:20 CDT CPT-74645 Venipuncture Draw Fee 13:49:19 CDT CPT-69998 PT/INR - LAB USE ONLY 15:48:49 CDT CPT-30997 Venipuncture Draw Fee 15:48:49 CDT CPT-07975 Venipuncture Draw Fee 11:31:59 CDT CPT-41345 PT/INR - LAB USE ONLY 11:31:59 CDT CPT-93223 Venipuncture Draw Fee 13:29:15 CDT CPT-29565 Thoracolumbar AP/Lat 15:19:19 [facility] CPT-G0438 Initial Annual Wellness Exam 12:18:54 FULL FASHIONED GARMENT KNITTER CPT-83965 Knee 3V 09:57:38 CDT CPT-OV Office Visit 15:45:01 FULL FASHIONED GARMENT KNITTER CPT-85875 Abd compl w upright 17:10:25 CDT
--- OUTSIDE RECORDS SUMMARY | 2018-07-18 09:54 | XMS REPORT | Clinical Summary ---
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 Personal history of malignant neoplasm of prostate Coronary artery disease 414.00 Active Alina Luigi RETAIL SALES ADVISOR Coronary atherosclerosis of unspecified type of vessel, [place] or graft Back pain, thoracic region, [...] MG TABS 1 tablet daily WARFARIN SODIUM 59561597609 Active Simi Meyers Active TRAMADOL HCL 50 MG TABS 1 po tid with ES Tylenol TRAMADOL HCL 93134129495 Active Piotr Daley DO Active PREDNISONE 20 MG TAB 2 tablets today, then 1 tablet days 2 through 4 PREDNISONE 85752411992 No Longer Active Piotr Daley DO Active AZITHROMYCIN 250 MG TABS 2 po qd x 1 day, then 1 po qd x 4 days AZITHROMYCIN 17940470360 No Longer Active Piotr Daley DO Active IBUPROFEN 800 MG TABS 1 tab every 8 hours as needed IBUPROFEN 31944028416 No Longer Active Piotr Daley DO Active LOMOTIL 2.5-0.025 MG TAB 1 to 2 four times a day as needed for diarrhea 10/13 DIPHENOXYLATE-ATROPINE 29941984619 No Longer Active Piotr Daley DO Active WARFARIN SODIUM 4 MG TABS 1 tab every evening WARFARIN SODIUM 49149100541 No Longer Active Piotr Daley DO Active PREDNISONE 20 MG TAB 1 tablet twice daily for 2 days, then 1 tablet once daily for 2 days PREDNISONE 26145838701 No Longer Active Piotr Daley DO Active PROMETHAZINE HCL 25 MG TABS 1 four times a day as needed for nausea/vomiting PROMETHAZINE HCL 57492909418 No Longer Active Piotr Daley DO Active TUSSIONEX PENNKINETIC ER 10-8 MG/5ML LQCR 5ml po q12hr PRN Cough HYDROCOD POLST-CHLORPHEN POLST 88850600445 No Longer Active Piotr Daley DO Active AZITHROMYCIN 250 MG TABS 2 po qd x 1 day, then 1 po qd x 4 days AZITHROMYCIN 83038266490 No Longer Active Piotr Daley DO Active AZITHROMYCIN 250 MG TABS 2 po qd x 1 day, then 1 po qd x 4 days AZITHROMYCIN 68597023673 No Longer Active Piotr Daley DO Active LISINOPRIL-HYDROCHLOROTHIAZIDE 10-12.5 MG TABS 1 tab by mouth daily LISINOPRIL-HYDROCHLOROTHIAZIDE 67964982360 Active Hilary Ma MA Active LISINOPRIL 10 MG TABS 1/2-1 tab po every other day LISINOPRIL 52080560326 No Longer Active Piotr Daley DO Active VENTOLIN HFA 108 (90 BASE) MCG/ACT AERS 2 puffs four times a day PRN cough ALBUTEROL SULFATE 87549197864 No Longer Active Piotr Daley DO Active NYSTATIN-TRIAMCINOLONE 966470-3.1 UNIT/GM-% CREA Apply to area BID NYSTATIN-TRIAMCINOLONE 36567158781 No Longer Active Alena Oswaldum CRUISE GUIDE Active PHISOHEX 3 % LIQD Use Directed HEXACHLOROPHENE 14610046128 No Longer Active Sandra Lowell Active AZITHROMYCIN 250 MG TABS 2 po qd x 1 day, then 1 po qd x 4 days AZITHROMYCIN 99843017545 No Longer Active Katrina Rinaldi MD PhD Active AZITHROMYCIN 250 MG TABS 2 po qd x 1 day, then 1 po qd x 4 days AZITHROMYCIN 96414123228 No Longer Active Piotr Daley DO Active AZITHROMYCIN 500 MG SOLR 1 po q day AZITHROMYCIN 99386154533 No Longer Active Piotr Daley DO Active NYSTATIN-TRIAMCINOLONE 342233-9.1 UNIT/GM-% CREA apply bid 08/19 NYSTATIN-TRIAMCINOLONE 58907347258 No Longer Active Piotr Daley DO Active IBUPROFEN 800 MG TABS 1 po q 8 hours prn pain sparinly IBUPROFEN 31626894856 No Longer Active Piotr Daley DO Active VITAMIN D3 5000 UNIT CAPS 1 po daily CHOLECALCIFEROL 16546639295 Active Piotr Daley DO Active IBUPROFEN 800 MG TABS 1 po q 8 hours prn pain sparinly IBUPROFEN 800 MG TABS 870520 IBUPROFEN Inactive NYSTATIN-TRIAMCINOLONE 756776-3.1 UNIT/GM-% CREA apply bid 08/19 NYSTATIN-TRIAMCINOLONE 945385-0.1 UNIT/GM-% CREA 0117605 NYSTATIN- TRIAMCINOLONE Inactive AZITHROMYCIN 500 MG SOLR 1 po q day AZITHROMYCIN 500 MG SOLR 49899511754 AZITHROMYCIN Inactive VENTOLIN HFA 108 (90 BASE) MCG/ACT AERS 2 puffs four times a day PRN cough VENTOLIN HFA 108 (90 BASE) MCG/ACT AERS ALBUTEROL SULFATE Inactive LISINOPRIL 10 MG TABS 1/2-1 tab po every other day LISINOPRIL 10 MG TABS 881644 LISINOPRIL Inactive TUSSIONEX PENNKINETIC ER 10-8 MG/5ML LQCR 5ml po q12hr PRN Cough TUSSIONEX PENNKINETIC ER 10-8 MG/5ML LQCR HYDROCOD POLST- CHLORPHEN POLST Inactive PROMETHAZINE HCL 25 MG TABS 1 four times a day as needed for nausea/vomiting PROMETHAZINE HCL 25 MG TABS 831215 PROMETHAZINE HCL Inactive PREDNISONE 20 MG TAB 1 tablet twice daily for 2 days, then 1 tablet once daily for 2 days PREDNISONE 20 MG TAB 278848 PREDNISONE Inactive WARFARIN SODIUM 4 MG TABS 1 tab every evening WARFARIN SODIUM 4 MG TABS 919302 WARFARIN SODIUM Inactive LOMOTIL 2.5-0.025 MG TAB 1 to 2 four times a day as needed for diarrhea 10/13 LOMOTIL 2.5-0.025 MG TAB 8013235 DIPHENOXYLATE-ATROPINE Inactive IBUPROFEN 800 MG TABS 1 tab every 8 hours as needed IBUPROFEN 800 MG TABS 204195 IBUPROFEN Inactive PREDNISONE 20 MG TAB 2 tablets today, then 1 tablet days 2 through 4 PREDNISONE 20 MG TAB 450488 PREDNISONE Inactive AZITHROMYCIN 250 MG TABS 2 po qd x 1 day, then 1 po qd x 4 days AZITHROMYCIN 250 MG TABS 3475753 AZITHROMYCIN Inactive AZITHROMYCIN 250 MG TABS 2 po qd x 1 day, then 1 po qd x 4 days AZITHROMYCIN 250 MG TABS 2451825 AZITHROMYCIN Inactive NYSTATIN-TRIAMCINOLONE 400147-1.1 UNIT/GM-% CREA Apply to area BID NYSTATIN-TRIAMCINOLONE 587443-3.1 UNIT/GM-% CREA 7177537 NYSTATIN-TRIAMCINOLONE Inactive AZITHROMYCIN 250 MG TABS 2 po qd x 1 day, then 1 po qd x 4 days AZITHROMYCIN 250 MG TABS 9352661 AZITHROMYCIN Inactive AZITHROMYCIN 250 MG TABS 2 po qd x 1 day, then 1 po qd x 4 days AZITHROMYCIN 250 MG TABS 8948803 AZITHROMYCIN Inactive AZITHROMYCIN 250 MG TABS 2 po qd x 1 day, then 1 po qd x 4 days AZITHROMYCIN 250 MG TABS 1926939 AZITHROMYCIN Inactive Advance Directives Directive Description Start [...] Panel - Chemistry sodium, serum 141 mmol/L 710-444 6433/06/28 carbon dioxide, venous blood 31.0 mmol/L 21.0-32.0 [...] Negative Encounters Code Encounter Date Provider Facility CPT-17220 Level 3 Est. Patient 15:14:31 CHEMICAL PATHOLOGIST Piotr Daley [facility] CPT-29249 Level 3 Est. Patient 09:20:13 CHEMICAL PATHOLOGIST Piotr Daley [facility] CPT-42201 Level 3 Est. Patient 09:49:40 CDT Piotr Daley [facility] CPT-63332 Level 3 Est. Patient 16:28:11 CDT Piotr Daley [facility] CPT-48010 Level 3 Est. Patient 12:41:58 CHEMICAL PATHOLOGIST Piotr Katie Daley [facility] CPT-92572 Level 3 Est. Patient 09:21:24 CDT Piotr Daley [facility] CPT-15699 Level 3 Est. Patient 09:21:11 CDT Piotr Daley [facility] CPT-21434 Level 3 Est. Patient 11:16:29 CHEMICAL PATHOLOGIST Piotr Daley [facility] CPT-48412 Level 3 Est. Patient 18:40:19 CHEMICAL PATHOLOGIST Piotr Daley [facility] CPT-03738 Level 3 Est. Patient 19:30:50 CDT Piotr Daley [facility] CPT-97275 Level 3 Est. Patient 22:06:44 CDT Katrina Rinaldi MD [facility] CPT-11266 Level 3 Est. Patient 14:20:00 CDT Piotr Daley [facility] CPT-31497 Level 3 Est. Patient 14:15:22 CHEMICAL PATHOLOGIST Piotr Daley [facility] CPT-41892 Level 3 Est. Patient 20:19:57 CHEMICAL PATHOLOGIST Piotr Daley [facility] CPT-84471 Level 3 Est. Patient 16:44:32 CDT Piotr Daley [facility] CPT-98179 Level 3 Est. Patient 08:48:46 CHEMICAL PATHOLOGIST Piotr Daley [facility] CPT-90056 Level 3 Est. Patient 21:01:21 CDT Piotr Daley [facility] Procedures Code Procedure Name Date Entry Date Standard Description CPT-18205 PT/INR - LAB USE ONLY 13:49:20 CDT CPT-70494 Venipuncture Draw Fee 13:49:19 CDT CPT-56998 PT/INR - LAB USE ONLY 15:48:49 CDT CPT-03141 Venipuncture Draw Fee 15:48:49 CDT CPT-12977 Venipuncture Draw Fee 11:31:59 CDT CPT-64747 PT/INR - LAB USE ONLY 11:31:59 CDT CPT-67478 Venipuncture Draw Fee 13:29:15 CDT CPT-56449 Thoracolumbar AP/Lat 15:19:19 CHEMICAL PATHOLOGIST CPT-G0438 Initial Annual Wellness Exam 12:18:54 CHEMICAL PATHOLOGIST CPT-35043 Knee 3V 09:57:38 CDT CPT-OV Office Visit 15:45:01 CHEMICAL PATHOLOGIST CPT-04835 Abd compl w upright 17:10:25 CDT
[2018-07-18 09:55] VITALS: BP 135/74
--- OUTSIDE RECORDS SUMMARY | 2018-07-18 09:55 | XMS REPORT | Clinical Summary ---
Author Author Admin, [place] Organization [employer] Address Unknown Phone Unavailable Allergies, Adverse Reactions, [...] neoplasm of prostate V10.46 Active Alina Meyers BINDERY SUPERVISOR Personal history of malignant neoplasm of prostate Coronary artery disease 414.00 Active Alina Meyers APRN Coronary atherosclerosis of unspecified type of vessel, mechoopda or graft Back pain, thoracic region, left [...] PhD Seborrheic keratosis ICD-702.19 Inactive Sirisha Chen ACCOUNT REVIEW SPECIALIST Bronchitis-Acute ICD-466.0 Inactive Piotr Daley DO Leg pain, right ICD-729.5 Inactive Sirisha Chen ACCOUNT REVIEW SPECIALIST Right leg pain ICD-729.5 Inactive Sirisha Chen ACCOUNT REVIEW SPECIALIST Bronchitis-Acute ICD-466.0 Inactive Sirisha Chen ACCOUNT REVIEW SPECIALIST Knee pain, left ICD-719.46 Inactive Sirisha Chen ACCOUNT REVIEW SPECIALIST Actinic keratoses ICD-702.0 Inactive Sirisha Chen ACCOUNT REVIEW SPECIALIST Back pain, thoracic region, left ICD-724.1 Inactive Piotr Daley DO Thoracic back pain ICD-724.5 Inactive Sirisha Chen EZE Back pain lumbar ICD-724.2 Inactive Sirisha Chen ACCOUNT REVIEW SPECIALIST Insect bite ICD-919.4 Inactive Sirisha Chen ACCOUNT REVIEW SPECIALIST Pruritus ICD-698.9 Inactive Sirisha Chen ACCOUNT REVIEW SPECIALIST 04/09 Bronchitis-Acute ICD-466.0 Inactive Sirisha Chen ACCOUNT REVIEW SPECIALIST Dyspnea ICD-786.09 Inactive Sirisha Chen ACCOUNT REVIEW SPECIALIST 05/09 DEEP VENOUS THROMBOPHLEBITIS, LEG, 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 Inactive Sirisha Chen ACCOUNT REVIEW SPECIALIST DEEP VENOUS THROMBOPHLEBITIS, LEG, 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 Inactive Sirisha Chen ACCOUNT REVIEW SPECIALIST Medication List Medication Instructions Start Date Stop Date Generic Name NDC Status Provider Patient Instruction MELOXICAM 15 MG ORAL TABLET 1 po q day for pain with food MELOXICAM 07223150210 Active Piotr Daley DO Active PREDNISONE 10 MG ORAL TABLET 1 tablet by mouth daily PREDNISONE 28223258672 No Longer Active Emelyn Norris Active TESSALON PERLES 100 MG ORAL CAPSULE 1-2 tablet by mouth 3 times daily 04/16 BENZONATATE 77403038463 No Longer Active Emelyn Norris Active WARFARIN SODIUM 5 MG ORAL TABLET 1 tablet daily M, T, T, F, Sa, 1/2 tab on W, Heart WARFARIN SODIUM 11422278284 Active Sirisha Chen LPN Active PREDNISONE 20 MG ORAL TABLET two tabs by mouth today, then one tab by mouth days two and three PREDNISONE 79176087360 No Longer Active Piotr Daley DO Active CYCLOBENZAPRINE HCL 10 MG ORAL TABLET 1 tablet by mouth three times daily as needed for muscle spasm/pain CYCLOBENZAPRINE HCL 73260932607 Active Piotr Daley DO Active ZITHROMAX 250 MG ORAL TABLET Take two (2 ) tablets day one, then one (1) tablet a day for four (4) more days AZITHROMYCIN 24674800506 No Longer Active Piotr Daley DO Active PROAIR HFA 108 (90 BASE) MCG/ACT INHALATION AEROSOL SOLUTION 1-2 puffs four times a day as needed ALBUTEROL SULFATE 60596984046 No Longer Active Emelyn Norris Active DOXYCYCLINE HYCLATE 100 MG ORAL CAPSULE 1 cap by mouth BID x10 days DOXYCYCLINE HYCLATE 62477539969 No Longer Active Nella Harris APRN Active PREDNISONE 20 MG ORAL TABLET 2 tabs daily for 3 days, 1 tab daily for 3 days, 1/2 tab daily for 2 days PREDNISONE 71620377385 No Longer Active Matthew Rangel MD Active TRAMADOL HCL 50 MG ORAL TABLET 1 po tid with ES Tylenol TRAMADOL HCL 81147323441 No Longer Active Matthew Rangel MD Active GABAPENTIN 300 MG ORAL CAPSULE 1 po q hs for nerve pain GABAPENTIN 75868683002 No Longer Active Matthew Rangel MD Active PREDNISONE 20 MG ORAL TABLET 2 tablets today, then 1 tablet days 2 through 4 PREDNISONE 75695643974 No Longer Active Piotr Daley DO Active AZITHROMYCIN 250 MG ORAL TABLET 2 po qd x 1 day, then 1 po qd x 4 days 07/12 AZITHROMYCIN 30297954293 No Longer Active Piotr Daley DO Active IBUPROFEN 800 MG ORAL TABLET 1 tab every 8 hours as needed 07/12 IBUPROFEN 24072051877 No Longer Active Piotr Daley DO Active LOMOTIL 2.5-0.025 MG ORAL TABLET 1 to 2 four times a day as needed for diarrhea DIPHENOXYLATE-ATROPINE 07653554822 No Longer Active Piotr Daley DO Active WARFARIN SODIUM 4 MG ORAL TABLET 1 tab every evening WARFARIN SODIUM 54202536450 No Longer Active Piotr Daley DO Active PREDNISONE 20 MG ORAL TABLET 1 tablet twice daily for 2 days, then 1 tablet once daily for 2 days PREDNISONE 91107757712 No Longer Active Piotr Daley DO Active PROMETHAZINE HCL 25 MG ORAL TABLET 1 four times a day as needed for nausea/ vomiting PROMETHAZINE HCL 19496405266 No Longer Active Piotr Daley DO Active TUSSIONEX PENNKINETIC ER 10-8 MG/5ML ORAL SUSPENSION EXTENDED RELEASE 5ml po q12hr PRN Cough HYDROCOD POLST-CHLORPHEN POLST 66640478935 No Longer Active Piotr Daley DO Active AZITHROMYCIN 250 MG ORAL TABLET 2 po qd x 1 day, then 1 po qd x 4 days 10/13 AZITHROMYCIN 18894912937 No Longer Active Piotr Daley DO Active AZITHROMYCIN 250 MG ORAL TABLET 2 po qd x 1 day, then 1 po qd x 4 days 05/07 AZITHROMYCIN 95114729608 No Longer Active Piotr Daley DO Active LISINOPRIL-HYDROCHLOROTHIAZIDE 10-12.5 MG ORAL TABLET 1 tab by mouth daily LISINOPRIL-HYDROCHLOROTHIAZIDE 28673880563 Active Piotr Daley DO Active LISINOPRIL 10 MG ORAL TABLET 1/2-1 tab po every other day LISINOPRIL 46077978252 No Longer Active Piotr Daley DO Active VENTOLIN HFA 108 (90 Base) MCG/ACT INHALATION AEROSOL SOLUTION 2 puffs four times a day PRN cough ALBUTEROL SULFATE 88182762479 No Longer Active Piotr Daley DO Active NYSTATIN-TRIAMCINOLONE 835535-1.1 UNIT/GM-% EXTERNAL CREAM Apply to area BID NYSTATIN-TRIAMCINOLONE 09450411978 No Longer Active Alena Chavira ACCOUNT REVIEW SPECIALIST Active PHISOHEX 3 % LIQD Use Directed HEXACHLOROPHENE 28317231132 No Longer Active Sandr[place]ico Sal[place] Active AZITHROMYCIN 250 MG ORAL TABLET 2 po qd x 1 day, then 1 po qd x 4 days 10/21 AZITHROMYCIN 94261115692 No Longer Active Katrina Rinaldi MD PhD Active AZITHROMYCIN 250 MG ORAL TABLET 2 po qd x 1 day, then 1 po qd x 4 days 10/16 AZITHROMYCIN 46685428367 No Longer Active Piotr Daley DO Active AZITHROMYCIN 500 MG INTRAVENOUS SOLUTION RECONSTITUTED 1 po q day AZITHROMYCIN 43470762979 No Longer Active Piotr Daley DO Active NYSTATIN-TRIAMCINOLONE 067015-9.1 UNIT/GM-% EXTERNAL CREAM apply bid NYSTATIN-TRIAMCINOLONE 66763937828 No Longer Active Piotr Daley DO Active IBUPROFEN 800 MG ORAL TABLET 1 po q 8 hours prn pain sparinly IBUPROFEN 60857415819 No Longer Active Piotr Daley DO Active VITAMIN D3 5000 UNIT ORAL CAPSULE 1 po daily CHOLECALCIFEROL 13822794018 Active Piotr Daley DO Active IBUPROFEN 800 MG ORAL TABLET 1 po q 8 hours prn pain sparinly IBUPROFEN 800 MG ORAL TABLET 212780 IBUPROFEN Inactive NYSTATIN-TRIAMCINOLONE 861198-2.1 UNIT/GM-% EXTERNAL CREAM apply bid NYSTATIN-TRIAMCINOLONE 546187-6.1 UNIT/GM-% EXTERNAL CREAM 6264376 NYSTATIN-TRIAMCINOLONE Inactive AZITHROMYCIN 500 MG INTRAVENOUS SOLUTION RECONSTITUTED 1 po q day AZITHROMYCIN 500 MG INTRAVENOUS SOLUTION RECONSTITUTED 69472442450 AZITHROMYCIN Inactive VENTOLIN HFA 108 (90 Base) MCG/ACT INHALATION AEROSOL SOLUTION 2 puffs four times a day PRN cough VENTOLIN HFA 108 (90 Base) MCG/ ACT INHALATION AEROSOL SOLUTION ALBUTEROL SULFATE Inactive LISINOPRIL 10 MG ORAL TABLET 1/2-1 tab po every other day LISINOPRIL 10 MG ORAL TABLET 667297 LISINOPRIL Inactive TUSSIONEX PENNKINETIC ER 10-8 MG/5ML ORAL SUSPENSION EXTENDED RELEASE 5ml po q12hr PRN Cough TUSSIONEX PENNKINETIC ER 10-8 MG/5ML ORAL SUSPENSION EXTENDED RELEASE HYDROCOD POLST-CHLORPHEN POLST Inactive PROMETHAZINE HCL 25 MG ORAL TABLET 1 four times a day as needed for nausea/ vomiting PROMETHAZINE HCL 25 MG ORAL TABLET 513864 PROMETHAZINE HCL Inactive PREDNISONE 20 MG ORAL TABLET 1 tablet twice daily for 2 days, then 1 tablet once daily for 2 days PREDNISONE 20 MG ORAL TABLET 322510 PREDNISONE Inactive WARFARIN SODIUM 4 MG ORAL TABLET 1 tab every evening WARFARIN SODIUM 4 MG ORAL TABLET 141156 WARFARIN SODIUM Inactive LOMOTIL 2.5-0.025 MG ORAL TABLET 1 to 2 four times a day as needed for diarrhea LOMOTIL 2.5-0.025 MG ORAL TABLET 7626965 DIPHENOXYLATE-ATROPINE Inactive IBUPROFEN 800 MG ORAL TABLET 1 tab every 8 hours as needed 07/12 IBUPROFEN 800 MG ORAL TABLET 388474 IBUPROFEN Inactive PREDNISONE 20 MG ORAL TABLET 2 tablets today, then 1 tablet days 2 through 4 PREDNISONE 20 MG ORAL TABLET 097356 PREDNISONE Inactive GABAPENTIN 300 MG ORAL CAPSULE 1 po q hs for nerve pain GABAPENTIN 300 MG ORAL CAPSULE 028621 GABAPENTIN Inactive TRAMADOL HCL 50 MG ORAL TABLET 1 po tid with ES Tylenol TRAMADOL HCL 50 MG ORAL TABLET 047830 TRAMADOL HCL Inactive PROAIR HFA 108 (90 BASE) MCG/ACT INHALATION AEROSOL SOLUTION 1-2 puffs four times a day as needed PROAIR HFA 108 (90 BASE) MCG/ACT INHALATION AEROSOL SOLUTION ALBUTEROL SULFATE Inactive PREDNISONE 20 MG ORAL TABLET two tabs by mouth today, then one tab by mouth days two and three PREDNISONE 20 MG ORAL TABLET 748172 PREDNISONE Inactive TESSALON PERLES 100 MG ORAL CAPSULE 1-2 tablet by mouth 3 times daily 04/16 TESSALON PERLES 100 MG ORAL CAPSULE 861138 BENZONATATE Inactive PREDNISONE 10 MG ORAL TABLET 1 tablet by mouth daily PREDNISONE 10 MG ORAL TABLET 024802 PREDNISONE Inactive AZITHROMYCIN 250 MG ORAL TABLET 2 po qd x 1 day, then 1 po qd x 4 days 10/16 AZITHROMYCIN 250 MG ORAL TABLET 859956 AZITHROMYCIN Inactive AZITHROMYCIN 250 MG ORAL TABLET 2 po qd x 1 day, then 1 po qd x 4 days 10/21 AZITHROMYCIN 250 MG ORAL TABLET 160401 AZITHROMYCIN Inactive NYSTATIN-TRIAMCINOLONE 589946-3.1 UNIT/GM-% EXTERNAL CREAM Apply to area BID NYSTATIN-TRIAMCINOLONE 915769-5.1 UNIT/GM-% EXTERNAL CREAM 1795221 NYSTATIN-TRIAMCINOLONE Inactive AZITHROMYCIN 250 MG ORAL TABLET 2 po qd x 1 day, then 1 po qd x 4 days 05/07 AZITHROMYCIN 250 MG ORAL TABLET 718100 AZITHROMYCIN Inactive AZITHROMYCIN 250 MG ORAL TABLET 2 po qd x 1 day, then 1 po qd x 4 days 10/13 AZITHROMYCIN 250 MG ORAL TABLET 626164 AZITHROMYCIN Inactive AZITHROMYCIN 250 MG ORAL TABLET 2 po qd x 1 day, then 1 po qd x 4 days 07/12 AZITHROMYCIN 250 MG ORAL TABLET 408096 AZITHROMYCIN Inactive PREDNISONE 20 MG ORAL TABLET 2 tabs daily for 3 days, 1 tab daily for 3 days, 1/2 tab daily for 2 days PREDNISONE 20 MG ORAL TABLET 938745 PREDNISONE Inactive DOXYCYCLINE HYCLATE 100 MG ORAL CAPSULE 1 cap by mouth BID x10 days DOXYCYCLINE HYCLATE 100 MG ORAL CAPSULE 7196590 DOXYCYCLINE HYCLATE Inactive ZITHROMAX 250 MG ORAL TABLET Take two (2 ) tablets day one, then one (1) tablet a day for four (4) more days ZITHROMAX 250 MG ORAL TABLET 471886 AZITHROMYCIN Inactive Advance Directives Directive Description Start [...] % 11.0-15.0 platelet count 172 THOUSAND/UL 10*3/mm3 165-760 3228/04/12 mean platelet volume 8.6 fL 7.5-12.5 mean corpuscular volume, RBC 83.9 fL 80.0-100.0 hematocrit, blood 43.0 % 38.5-50.0 hemoglobin, blood 14.4 g/dL 13.2-17.1 erythrocyte (RBC) count 5.13 MILLION/UL 10*6/mm3 4.20-5.80 leukocyte count, blood 5.4 THOUSAND/UL 10*3/mm3 3.8-10.8 Lab Report: Prothrombin Time Hemochron - Coagulation prothrombin time (patient) 33.0 SECS s 18.9-24.9 Encounters Code Encounter Date Provider Facility CPT-44495 Level 3 Est. Patient 15:59:25 DISH ROOM WORKER Piotr Daley [facility] CPT-10988 Level 3 Est. Patient 12:33:59 DISH ROOM WORKER Piotr Daley [facility] CPT-86327 Level 3 Est. Patient 15:56:17 DISH ROOM WORKER Piotr Daley [facility] CPT-44640 Level 3 Est. Patient 10:34:54 DISH ROOM WORKER Piotr Daley [facility] CPT-47795 Level 3 Est. Patient 17:10:19 MALACHI Harris APRN [facility] CPT-10466 Level 3 Est. Patient 10:48:17 DISH ROOM WORKER Matthew Rangel MD [facility] CPT-58544 Level 4 Est. Patient 17:15:07 DISH ROOM WORKER Piotr Daley [facility] CPT-84736 Level 3 Est. Patient 12:46:13 DISH ROOM WORKER Piotr Daley [facility] CPT-43774 Level 3 Est. Patient 15:14:31 DISH ROOM WORKER Piotr Daley [facility] CPT-52851 Level 3 Est. Patient 09:20:13 DISH ROOM WORKER Piotr Daley [facility] CPT-67706 Level 3 Est. Patient 09:49:40 CDT Piotr Daley [facility] CPT-26415 Level 3 Est. Patient 16:28:11 CDT Piotr Daley [facility] CPT-57102 Level 3 Est. Patient 12:41:58 DISH ROOM WORKER Piotr Daley [facility] CPT-30613 Level 3 Est. Patient 09:21:24 CDT Piotr Daley [facility] CPT-82651 Level 3 Est. Patient 09:21:11 CDT Piotr Daley [facility] CPT-91407 Level 3 Est. Patient 11:16:29 DISH ROOM WORKER Piotr Daley [facility] CPT-86186 Level 3 Est. Patient 18:40:19 DISH ROOM WORKER Piotr Daley [facility] CPT-10987 Level 3 Est. Patient 19:30:50 CDT Piotr Dalye [facility] CPT-61702 Level 3 Est. Patient 22:06:44 CDT Katrina Rinaldi MD PhD [facility] CPT-31098 Level 3 Est. Patient 14:20:00 CDT Piotr Daley [facility] CPT-20371 Level 3 Est. Patient 14:15:22 DISH ROOM WORKER Piotr Daley [facility] CPT-80317 Level 3 Est. Patient 20:19:57 DISH ROOM WORKER Piotr Daley [facility] CPT-26751 Level 3 Est. Patient 16:44:32 CDT Piotr Daley [facility] CPT-52483 Level 3 Est. Patient 08:48:46 DISH ROOM WORKER Piotr Daley [facility] CPT-45071 Level 3 Est. Patient 21:01:21 CDT Piotr Daley [facility] Procedures Code Procedure Name Date Entry Date Standard Description CPT-00727 Sacroiliac jt < 3V - XRAY USE ONLY 16:45:19 DISH ROOM WORKER 05/09 CPT-50376 LS spine comp w obliques - XRAY USE ONLY 14:52:26 DISH ROOM WORKER CPT-66664 Chest, 2 views 12:55:58 DISH ROOM WORKER CPT-G0439 Subsequent Annual Wellness Exam 10:34:52 DISH ROOM WORKER CPT-61111 BMP - LAB USE ONLY 17:19:11 DISH ROOM WORKER CPT-18886 PT/INR - LAB USE ONLY 17:19:10 [facility] CPT-54583 Venipuncture Draw Fee 17:19:10 [facility] CPT-32043 PT/INR - LAB USE ONLY 08:12:25 DISH ROOM WORKER CPT-50844 Venipuncture Draw Fee 08:12:24 DISH ROOM WORKER CPT-56611 Venipuncture Draw Fee 11:31:07 DISH ROOM WORKER CPT-02606 [facility] - LAB USE ONLY 11:31:07 DISH ROOM WORKER CPT-55090 PT/INR - LAB USE ONLY 11:31:07 DISH ROOM WORKER CPT-G0439 Subsequent Annual Wellness Exam 09:59:29 DISH ROOM WORKER CPT-36953 Creatinine - LAB USE ONLY 14:37:55 DISH ROOM WORKER CPT-37304 PT/INR - LAB USE ONLY 14:37:55 DISH ROOM WORKER CPT-36236 Venipuncture Draw Fee 14:37:55 DISH ROOM WORKER CPT-90004 LS spine comp w obliques - XRAY USE ONLY 12:59:25 DISH ROOM WORKER CPT-39991 PT/INR - LAB USE ONLY 13:49:20 CDT CPT-73554 Venipuncture Draw Fee 13:49:19 CDT CPT-88060 PT/INR - LAB USE ONLY 15:48:49 CDT CPT-46081 Venipuncture Draw Fee 15:48:49 CDT CPT-00600 Venipuncture Draw Fee 11:31:59 CDT CPT-45665 PT/INR - LAB USE ONLY 11:31:59 CDT CPT-30866 Venipuncture Draw Fee 13:29:15 CDT CPT-35966 Thoracolumbar AP/Lat 15:19:19 DISH ROOM WORKER CPT-G0438 Initial Annual Wellness Exam 12:18:54 DISH ROOM WORKER CPT-16134 Knee 3V 09:57:38 CDT CPT-OV Office Visit 15:45:01 DISH ROOM WORKER CPT-12891 Abd compl w upright 17:10:25 CDT
--- OUTSIDE RECORDS SUMMARY | 2018-07-18 09:56 | XMS REPORT | Clinical Summary ---
Author Author Admin, [place] Organization [employer] Address Unknown Phone Unavailable Allergies, Adverse Reactions, [...] Coronary atherosclerosis of unspecified type of vessel, [place] or graft Back pain, thoracic region, left [...] po q hs for nerve pain GABAPENTIN 96767972286 Active Piotr Daley DO Active WARFARIN SODIUM 5 MG TABS 1 tablet daily WARFARIN SODIUM 15008954070 Active Simi Meyers Active TRAMADOL HCL 50 MG TABS 1 po tid with ES Tylenol TRAMADOL HCL 90661850129 Active Piotr Daley DO Active PREDNISONE 20 MG TAB 2 tablets today, then 1 tablet days 2 through 4 PREDNISONE 46368305320 No Longer Active Piotr Daley DO Active AZITHROMYCIN 250 MG TABS 2 po qd x 1 day, then 1 po qd x 4 days AZITHROMYCIN 00082511988 No Longer Active Piotr Daley DO Active IBUPROFEN 800 MG TABS 1 tab every 8 hours as needed IBUPROFEN 93473125653 No Longer Active Piotr Daley DO Active LOMOTIL 2.5-0.025 MG TAB 1 to 2 four times a day as needed for diarrhea 10/13 DIPHENOXYLATE-ATROPINE 22226228507 No Longer Active Piotr Daley DO Active WARFARIN SODIUM 4 MG TABS 1 tab every evening WARFARIN SODIUM 32894049499 No Longer Active Piotr Daley DO Active PREDNISONE 20 MG TAB 1 tablet twice daily for 2 days, then 1 tablet once daily for 2 days PREDNISONE 44574563536 No Longer Active Piotr Daley DO Active PROMETHAZINE HCL 25 MG TABS 1 four times a day as needed for nausea/vomiting PROMETHAZINE HCL 83974469241 No Longer Active Piotr Daley DO Active TUSSIONEX PENNKINETIC ER 10-8 MG/5ML LQCR 5ml po q12hr PRN Cough HYDROCOD POLST-CHLORPHEN POLST 18283008826 No Longer Active Piotr Daley DO Active AZITHROMYCIN 250 MG TABS 2 po qd x 1 day, then 1 po qd x 4 days AZITHROMYCIN 99471074783 No Longer Active Piotr Daley DO Active AZITHROMYCIN 250 MG TABS 2 po qd x 1 day, then 1 po qd x 4 days AZITHROMYCIN 00980024558 No Longer Active Piotr Daley DO Active LISINOPRIL-HYDROCHLOROTHIAZIDE 10-12.5 MG TABS 1 tab by mouth daily LISINOPRIL-HYDROCHLOROTHIAZIDE 31086226158 Active Hilary Ma MA Active LISINOPRIL 10 MG TABS 1/2-1 tab po every other day LISINOPRIL 67808023106 No Longer Active Piotr Daley DO Active VENTOLIN HFA 108 (90 BASE) MCG/ACT AERS 2 puffs four times a day PRN cough ALBUTEROL SULFATE 18075022269 No Longer Active Piotr Daley DO Active NYSTATIN-TRIAMCINOLONE 555125-4.1 UNIT/GM-% CREA Apply to area BID NYSTATIN-TRIAMCINOLONE 46793056160 No Longer Active Alena Chavira AMORTIZATION CLERK Active PHISOHEX 3 % LIQD Use Directed HEXACHLOROPHENE 20450118480 No Longer Active Sandra [place] Active AZITHROMYCIN 250 MG TABS 2 po qd x 1 day, then 1 po qd x 4 days AZITHROMYCIN 25621083692 No Longer Active Katrina Rinaldi MD PhD Active AZITHROMYCIN 250 MG TABS 2 po qd x 1 day, then 1 po qd x 4 days AZITHROMYCIN 89374959128 No Longer Active Piotr Daley DO Active AZITHROMYCIN 500 MG SOLR 1 po q day AZITHROMYCIN 78674099248 No Longer Active Piotr Daley DO Active NYSTATIN-TRIAMCINOLONE 149949-9.1 UNIT/GM-% CREA apply bid 08/19 NYSTATIN-TRIAMCINOLONE 28278975139 No Longer Active Piotr Daley DO Active IBUPROFEN 800 MG TABS 1 po q 8 hours prn pain sparinly IBUPROFEN 98552612645 No Longer Active Piotr Daley DO Active VITAMIN D3 5000 UNIT CAPS 1 po daily CHOLECALCIFEROL 92370886348 Active Piotr Daley DO Active IBUPROFEN 800 MG TABS 1 po q 8 hours prn pain sparinly IBUPROFEN 800 MG TABS 405850 IBUPROFEN Inactive NYSTATIN-TRIAMCINOLONE 645623-0.1 UNIT/GM-% CREA apply bid 08/19 NYSTATIN-TRIAMCINOLONE 152712-6.1 UNIT/GM-% CREA 6947981 NYSTATIN- TRIAMCINOLONE Inactive AZITHROMYCIN 500 MG SOLR 1 po q day AZITHROMYCIN 500 MG SOLR 31325126662 AZITHROMYCIN Inactive VENTOLIN HFA 108 (90 BASE) MCG/ACT AERS 2 puffs four times a day PRN cough VENTOLIN HFA 108 (90 BASE) MCG/ACT AERS ALBUTEROL SULFATE Inactive LISINOPRIL 10 MG TABS 1/2-1 tab po every other day LISINOPRIL 10 MG TABS 079969 LISINOPRIL Inactive TUSSIONEX PENNKINETIC ER 10-8 MG/5ML LQCR 5ml po q12hr PRN Cough TUSSIONEX PENNKINETIC ER 10-8 MG/5ML LQCR HYDROCOD POLST- CHLORPHEN POLST Inactive PROMETHAZINE HCL 25 MG TABS 1 four times a day as needed for nausea/vomiting PROMETHAZINE HCL 25 MG TABS 908324 PROMETHAZINE HCL Inactive PREDNISONE 20 MG TAB 1 tablet twice daily for 2 days, then 1 tablet once daily for 2 days PREDNISONE 20 MG TAB 284263 PREDNISONE Inactive WARFARIN SODIUM 4 MG TABS 1 tab every evening WARFARIN SODIUM 4 MG TABS 916904 WARFARIN SODIUM Inactive LOMOTIL 2.5-0.025 MG TAB 1 to 2 four times a day as needed for diarrhea 10/13 LOMOTIL 2.5-0.025 MG TAB 8659713 DIPHENOXYLATE-ATROPINE Inactive IBUPROFEN 800 MG TABS 1 tab every 8 hours as needed IBUPROFEN 800 MG TABS 049556 IBUPROFEN Inactive PREDNISONE 20 MG TAB 2 tablets today, then 1 tablet days 2 through 4 PREDNISONE 20 MG TAB 498504 PREDNISONE Inactive AZITHROMYCIN 250 MG TABS 2 po qd x 1 day, then 1 po qd x 4 days AZITHROMYCIN 250 MG TABS 6035533 AZITHROMYCIN Inactive AZITHROMYCIN 250 MG TABS 2 po qd x 1 day, then 1 po qd x 4 days AZITHROMYCIN 250 MG TABS 2148509 AZITHROMYCIN Inactive NYSTATIN-TRIAMCINOLONE 631337-3.1 UNIT/GM-% CREA Apply to area BID NYSTATIN-TRIAMCINOLONE 839958-6.1 UNIT/GM-% CREA 5528629 NYSTATIN-TRIAMCINOLONE Inactive AZITHROMYCIN 250 MG TABS 2 po qd x 1 day, then 1 po qd x 4 days AZITHROMYCIN 250 MG TABS 3796973 AZITHROMYCIN Inactive AZITHROMYCIN 250 MG TABS 2 po qd x 1 day, then 1 po qd x 4 days AZITHROMYCIN 250 MG TABS 8357458 AZITHROMYCIN Inactive AZITHROMYCIN 250 MG TABS 2 po qd x 1 day, then 1 po qd x 4 days AZITHROMYCIN 250 MG TABS 9050004 AZITHROMYCIN Inactive Advance Directives Directive Description Start [...] Panel - Chemistry sodium, serum 141 mmol/L 661-745 3188/06/28 carbon dioxide, venous blood 31.0 mmol/L 21.0-32.0 [...] Negative Encounters Code Encounter Date Provider Facility CPT-69132 Level 4 Est. Patient 17:15:07 [employer]AN[employer]ONE Piotr Daley [facility] CPT-74489 Level 3 Est. Patient 12:46:13 PLANER STONE Piotr Daley [facility] CPT-96654 Level 3 Est. Patient 15:14:31 PLANER STONE Piotr Daley [facility] CPT-72123 Level 3 Est. Patient 09:20:13 PLANER STONE Piotr Daley [facility] CPT-15632 Level 3 Est. Patient 09:49:40 CDT Piotr Daley [facility] CPT-85479 Level 3 Est. Patient 16:28:11 CDT Piotr Daley [facility] CPT-60199 Level 3 Est. Patient 12:41:58 PL[employer]ER STONE Piotr Daley [facility] CPT-98406 Level 3 Est. Patient 09:21:24 CDT Piotr Daley [facility] CPT-48169 Level 3 Est. Patient 09:21:11 CDT Piotr Dalye [facility] CPT-56989 Level 3 Est. Patient 11:16:29 PL[employer] STONE Piotr Daley [facility] CPT-67892 Level 3 Est. Patient 18:40:19 PL[employer] STONE Piotr Daley [facility] CPT-21679 Level 3 Est. Patient 19:30:50 CDT Piotr Daley [facility] CPT-84074 Level 3 Est. Patient 22:06:44 CDT Katrina Rinaldi MD PhD [facility] CPT-93507 Level 3 Est. Patient 14:20:00 CDT Piotr Daley [facility] CPT-35912 Level 3 Est. Patient 14:15:22 [employer] STONE Piotr Daley [facility] CPT-69544 Level 3 Est. Patient 20:19:57 PL[employer]ER STONE Piotr Daley [facility] CPT-97321 Level 3 Est. Patient 16:44:32 CDT Piotr Daley [facility] CPT-17050 Level 3 Est. Patient 08:48:46 PL[employer]ER STONE Piotr Daley [facility] CPT-29054 Level 3 Est. Patient 21:01:21 CDT Piotr Daley [facility] Procedures Code Procedure Name Date Entry Date Standard Description CPT-44576 Venipuncture Draw Fee 11:31:07 PLANER STONE CPT-20355 TPSA - LAB USE ONLY 11:31:07 [employer] CPT-76643 PT/INR - LAB USE ONLY 11:31:07 PLANER STONE CPT-G0439 [facility] Annual Wellness Exam 09:59:29 PLANER STONE CPT-02547 Creatinine - LAB USE ONLY 14:37:55 PL[employer]ONE CPT-59837 PT/INR - LAB USE ONLY 14:37:55 PL[employer]ONE CPT-15574 Venipuncture Draw Fee 14:37:55 PL[employer]ONE CPT-40755 LS spine comp w obliques - XRAY USE ONLY 12:59:25 PL[employer]ER [employer]ONE CPT-07753 PT/INR - LAB USE ONLY 13:49:20 CDT CPT-99744 Venipuncture Draw Fee 13:49:19 CDT CPT-01481 PT/INR - LAB USE ONLY 15:48:49 CDT CPT-36593 Venipuncture Draw Fee 15:48:49 CDT CPT-15044 Venipuncture Draw Fee 11:31:59 CDT CPT-07315 PT/INR - LAB USE ONLY 11:31:59 CDT CPT-11754 Venipuncture Draw Fee 13:29:15 CDT CPT-94120 Thoracolumbar AP/Lat 15:19:19 [facility] CPT-G0438 Initial Annual Wellness Exam 12:18:54 [facility] CPT-42527 Knee 3V 09:57:38 CDT CPT-OV Office Visit 15:45:01 [facility] CPT-79677 Abd compl w upright 17:10:25 CDT
--- OUTSIDE RECORDS SUMMARY | 2018-07-18 09:57 | XMS REPORT | Clinical Summary ---
Author Author Admin, Isidra Organization [employer] Address Unknown Phone Unavailable Allergies, Adverse Reactions, [...] Coronary atherosclerosis of unspecified type of vessel, white earth or graft Back pain, thoracic region, left [...] po q hs for nerve pain GABAPENTIN 85511093223 Active Piotr Daley DO Active WARFARIN SODIUM 5 MG TABS 1 tablet daily WARFARIN SODIUM 63995343452 Active Simi Meyers Active TRAMADOL HCL 50 MG TABS 1 po tid with ES Tylenol TRAMADOL HCL 73841585460 Active Piotr Daley DO Active PREDNISONE 20 MG TAB 2 tablets today, then 1 tablet days 2 through 4 PREDNISONE 65966233920 No Longer Active Piotr Daley DO Active AZITHROMYCIN 250 MG TABS 2 po qd x 1 day, then 1 po qd x 4 days AZITHROMYCIN 50502783959 No Longer Active Piotr Daley DO Active IBUPROFEN 800 MG TABS 1 tab every 8 hours as needed IBUPROFEN 88911157628 No Longer Active Piotr Daley DO Active LOMOTIL 2.5-0.025 MG TAB 1 to 2 four times a day as needed for diarrhea 10/13 DIPHENOXYLATE-ATROPINE 23527557807 No Longer Active Piotr Daley DO Active WARFARIN SODIUM 4 MG TABS 1 tab every evening WARFARIN SODIUM 84123910235 No Longer Active Piotr Daley DO Active PREDNISONE 20 MG TAB 1 tablet twice daily for 2 days, then 1 tablet once daily for 2 days PREDNISONE 51998021942 No Longer Active Piotr Daley DO Active PROMETHAZINE HCL 25 MG TABS 1 four times a day as needed for nausea/vomiting PROMETHAZINE HCL 32933347070 No Longer Active Piotr Daley DO Active TUSSIONEX PENNKINETIC ER 10-8 MG/5ML LQCR 5ml po q12hr PRN Cough HYDROCOD POLST-CHLORPHEN POLST 33179451261 No Longer Active Piotr Daley DO Active AZITHROMYCIN 250 MG TABS 2 po qd x 1 day, then 1 po qd x 4 days AZITHROMYCIN 15112024491 No Longer Active Piotr Daley DO Active AZITHROMYCIN 250 MG TABS 2 po qd x 1 day, then 1 po qd x 4 days AZITHROMYCIN 79746434506 No Longer Active Piotr Daley DO Active LISINOPRIL-HYDROCHLOROTHIAZIDE 10-12.5 MG TABS 1 tab by mouth daily LISINOPRIL-HYDROCHLOROTHIAZIDE 88843184223 Active Simi Meyers Active LISINOPRIL 10 MG TABS 1/2-1 tab po every other day LISINOPRIL 28979717907 No Longer Active Piotr Daley DO Active VENTOLIN HFA 108 (90 BASE) MCG/ACT AERS 2 puffs four times a day PRN cough ALBUTEROL SULFATE 95715579702 No Longer Active Piotr Daley DO Active NYSTATIN-TRIAMCINOLONE 434715-4.1 UNIT/GM-% CREA Apply to area BID NYSTATIN-TRIAMCINOLONE 78044632621 No Longer Active Alena Chavira VENDOR MANAGEMENT SPECIALIST Active PHISOHEX 3 % LIQD Use Directed HEXACHLOROPHENE 84536990358 No Longer Active Sandra H[place] Active AZITHROMYCIN 250 MG TABS 2 po qd x 1 day, then 1 po qd x 4 days AZITHROMYCIN 96947855970 No Longer Active Katrina Rinaldi MD PhD Active AZITHROMYCIN 250 MG TABS 2 po qd x 1 day, then 1 po qd x 4 days AZITHROMYCIN 65545325151 No Longer Active Piotr Daley DO Active AZITHROMYCIN 500 MG SOLR 1 po q day AZITHROMYCIN 14747970789 No Longer Active Piotr Daley DO Active NYSTATIN-TRIAMCINOLONE 366695-7.1 UNIT/GM-% CREA apply bid 08/19 NYSTATIN-TRIAMCINOLONE 76190030542 No Longer Active Piotr Daley DO Active IBUPROFEN 800 MG TABS 1 po q 8 hours prn pain sparinly IBUPROFEN 76014496665 No Longer Active Piotr Daley DO Active VITAMIN D3 5000 UNIT CAPS 1 po daily CHOLECALCIFEROL 92985494859 Active Piotr Daley DO Active IBUPROFEN 800 MG TABS 1 po q 8 hours prn pain sparinly IBUPROFEN 800 MG TABS 445097 IBUPROFEN Inactive NYSTATIN-TRIAMCINOLONE 683203-3.1 UNIT/GM-% CREA apply bid 08/19 NYSTATIN-TRIAMCINOLONE 862400-6.1 UNIT/GM-% CREA 5401817 NYSTATIN- TRIAMCINOLONE Inactive AZITHROMYCIN 500 MG SOLR 1 po q day AZITHROMYCIN 500 MG SOLR 01186637286 AZITHROMYCIN Inactive VENTOLIN HFA 108 (90 BASE) MCG/ACT AERS 2 puffs four times a day PRN cough VENTOLIN HFA 108 (90 BASE) MCG/ACT AERS ALBUTEROL SULFATE Inactive LISINOPRIL 10 MG TABS 1/2-1 tab po every other day LISINOPRIL 10 MG TABS 537569 LISINOPRIL Inactive TUSSIONEX PENNKINETIC ER 10-8 MG/5ML LQCR 5ml po q12hr PRN Cough TUSSIONEX PENNKINETIC ER 10-8 MG/5ML LQCR HYDROCOD POLST- CHLORPHEN POLST Inactive PROMETHAZINE HCL 25 MG TABS 1 four times a day as needed for nausea/vomiting PROMETHAZINE HCL 25 MG TABS 735487 PROMETHAZINE HCL Inactive PREDNISONE 20 MG TAB 1 tablet twice daily for 2 days, then 1 tablet once daily for 2 days PREDNISONE 20 MG TAB 622007 PREDNISONE Inactive WARFARIN SODIUM 4 MG TABS 1 tab every evening WARFARIN SODIUM 4 MG TABS 498139 WARFARIN SODIUM Inactive LOMOTIL 2.5-0.025 MG TAB 1 to 2 four times a day as needed for diarrhea 10/13 LOMOTIL 2.5-0.025 MG TAB 7641666 DIPHENOXYLATE-ATROPINE Inactive IBUPROFEN 800 MG TABS 1 tab every 8 hours as needed IBUPROFEN 800 MG TABS 517733 IBUPROFEN Inactive PREDNISONE 20 MG TAB 2 tablets today, then 1 tablet days 2 through 4 PREDNISONE 20 MG TAB 567747 PREDNISONE Inactive AZITHROMYCIN 250 MG TABS 2 po qd x 1 day, then 1 po qd x 4 days AZITHROMYCIN 250 MG TABS 3958518 AZITHROMYCIN Inactive AZITHROMYCIN 250 MG TABS 2 po qd x 1 day, then 1 po qd x 4 days AZITHROMYCIN 250 MG TABS 4629806 AZITHROMYCIN Inactive NYSTATIN-TRIAMCINOLONE 675994-1.1 UNIT/GM-% CREA Apply to area BID NYSTATIN-TRIAMCINOLONE 660209-0.1 UNIT/GM-% CREA 9171418 NYSTATIN-TRIAMCINOLONE Inactive AZITHROMYCIN 250 MG TABS 2 po qd x 1 day, then 1 po qd x 4 days AZITHROMYCIN 250 MG TABS 4270124 AZITHROMYCIN Inactive AZITHROMYCIN 250 MG TABS 2 po qd x 1 day, then 1 po qd x 4 days AZITHROMYCIN 250 MG TABS 7641484 AZITHROMYCIN Inactive AZITHROMYCIN 250 MG TABS 2 po qd x 1 day, then 1 po qd x 4 days AZITHROMYCIN 250 MG TABS 7970600 AZITHROMYCIN Inactive Advance Directives Directive Description Start [...] Panel - Chemistry sodium, serum 141 mmol/L 001-774 1715/06/28 carbon dioxide, venous blood 31.0 mmol/L 21.0-32.0 [...] ratio (INR) 4.2 1.0-3.5 prothrombin time (patient) 18.3 SECS s [...] 1.0-3.5 international normalized ratio (INR) 1.7 1.0-3.5 international normalized ratio (INR) 2.2 1.0-3.5 prothrombin time (patient) 18.1 SECS s 11.1-13.4 prothrombin time (patient) 20.8 SECS s 11.1-13.4 international normalized ratio (INR) 2.5 1.0-3.5 Encounters Code Encounter Date Provider Facility CPT-98144 Level 4 Est. Patient 17:15:07 [employer] E[employer]CEMENT OFFICER Piotr Daley [facility] CPT-83037 Level 3 Est. Patient 12:46:13 [employer] ENF[employer]CEMENT OFFICER Piotr Daley [facility] CPT-27549 Level 3 Est. Patient 15:14:31 [employer] ENF[employer]CEMENT OFFICER Piotr Daley [facility] CPT-45537 Level 3 Est. Patient 09:20:13 [employer] ENF[employer]CEMENT OFFICER Piotr Daley [facility] CPT-14479 Level 3 Est. Patient 09:49:40 CDT Piotr Wilson [facility] CPT-76647 Level 3 Est. Patient 16:28:11 CDT Piotr Daley [facility] CPT-08363 Level 3 Est. Patient 12:41:58 [employer] E[employer]CEMENT OFFICER Piotr Daley [facility] CPT-13270 Level 3 Est. Patient 09:21:24 CDT Piotr Wilson [facility] CPT-44407 Level 3 Est. Patient 09:21:11 CDT Piotr Daley [facility] CPT-08748 Level 3 Est. Patient 11:16:29 [employer] E[employer]CEMENT OFFICER Piotr Daley [facility] CPT-92191 Level 3 Est. Patient 18:40:19 [employer] ENF[employer]CEMENT OFFICER Piotr Daley [facility] CPT-87201 Level 3 Est. Patient 19:30:50 CDT Piotr Daley [facility] CPT-45630 Level 3 Est. Patient 22:06:44 CDT Katrina Rinaldi MD [facility] CPT-66674 Level 3 Est. Patient 14:20:00 CDT Piotr Daley [facility] CPT-79767 Level 3 Est. Patient 14:15:22 [employer] OFFICER Piotr Daley [facility] CPT-42239 Level 3 Est. Patient 20:19:57 [employer] ENF[employer]CEMENT OFFICER Piotr Daley DO [facility] CPT-08007 Level 3 Est. Patient 16:44:32 CDT Piotr Daley [facility] CPT-72777 Level 3 Est. Patient 08:48:46 [employer]CEMENT OFFICER Piotr Daley [facility] CPT-29373 Level 3 Est. Patient 21:01:21 CDT Piotr Daley [facility] Procedures Code Procedure Name Date Entry Date Standard Description CPT-03618 BMP - LAB USE ONLY 17:19:11 [employer] OFFICER CPT-57089 PT/INR - LAB USE ONLY 17:19:10 [employer]CEMENT OFFICER CPT-64104 Venipuncture Draw Fee 17:19:10 [employer]CEMENT OFFICER CPT-43935 PT/INR - LAB USE ONLY 08:12:25 [employer] E[employer]CEMENT OFFICER CPT-33026 Venipuncture Draw Fee 08:12:24 [employer] E[employer]CEMENT OFFICER CPT-61523 Venipuncture Draw Fee 11:31:07 [employer] E[employer]CEMENT OFFICER CPT-79882 TPSA - LAB USE ONLY 11:31:07 [employer] E[employer]CEMENT OFFICER CPT-06199 PT/INR - LAB USE ONLY 11:31:07 [employer] E[employer]CEMENT OFFICER CPT-G0439 Subsequent Annual Wellness Exam 09:59:29 [employer] E[employer]CEMENT OFFICER CPT-62734 Creatinine - LAB USE ONLY 14:37:55 [employer] E[employer]CEMENT OFFICER CPT-01207 PT/INR - LAB USE ONLY 14:37:55 [employer] E[employer]CEMENT OFFICER CPT-82566 Venipuncture Draw Fee 14:37:55 [employer] E[employer]CEMENT OFFICER CPT-21636 LS spine comp w obliques - XRAY USE ONLY 12:59:25 [employer] E[employer]CEMENT OFFICER CPT-99062 PT/INR - LAB USE ONLY 13:49:20 CDT CPT-05562 Venipuncture Draw Fee 13:49:19 CDT CPT-01908 PT/INR - LAB USE ONLY 15:48:49 CDT CPT-76624 Venipuncture Draw Fee 15:48:49 CDT CPT-52835 Venipuncture Draw Fee 11:31:59 CDT CPT-41497 PT/INR - LAB USE ONLY 11:31:59 CDT CPT-21129 Venipuncture Draw Fee 13:29:15 CDT CPT-88861 Thoracolumbar AP/Lat 15:19:19 [employer] E[employer]CEMENT OFFICER CPT-G0438 Initial Annual Wellness Exam 12:18:54 [employer] E[employer]CEMENT OFFICER CPT-86567 Knee 3V 09:57:38 CDT CPT-OV Office Visit 15:45:01 [employer] E[employer]ORCEMENT OFFICER CPT-23868 Abd compl w upright 17:10:25 CDT
--- OUTSIDE RECORDS SUMMARY | 2018-07-18 09:58 | XMS REPORT | Clinical Summary ---
Author Author Admin, E Organization [employer] Address Unknown Phone Unavailable Allergies, Adverse Reactions, [...] Coronary atherosclerosis of unspecified type of vessel, tribe or graft Back pain, thoracic region, [...] po tid with ES Tylenol TRAMADOL HCL 40243641522 Active Piotr Daley DO Active WARFARIN SODIUM 5 MG TABS 1 tablet daily except for Saturday and Sat 1/2 tablet. WARFARIN SODIUM 02301754590 Active Hilary Ma MA Active PREDNISONE 20 MG TAB 2 tablets today, then 1 tablet days 2 through 4 PREDNISONE 23328554722 No Longer Active Piotr Daley DO Active AZITHROMYCIN 250 MG TABS 2 po qd x 1 day, then 1 po qd x 4 days AZITHROMYCIN 02003908221 No Longer Active Piotr Daley DO Active IBUPROFEN 800 MG TABS 1 tab every 8 hours as needed IBUPROFEN 27946909366 No Longer Active Piotr Daley DO Active LOMOTIL 2.5-0.025 MG TAB 1 to 2 four times a day as needed for diarrhea 10/13 DIPHENOXYLATE-ATROPINE 58038845526 No Longer Active Piotr Daley DO Active WARFARIN SODIUM 4 MG TABS 1 tab every evening WARFARIN SODIUM 65624610494 No Longer Active Piotr Daley DO Active PREDNISONE 20 MG TAB 1 tablet twice daily for 2 days, then 1 tablet once daily for 2 days PREDNISONE 96677814634 No Longer Active Piotr Daley DO Active PROMETHAZINE HCL 25 MG TABS 1 four times a day as needed for nausea/vomiting PROMETHAZINE HCL 58776538827 No Longer Active Piotr Daley DO Active TUSSIONEX PENNKINETIC ER 10-8 MG/5ML LQCR 5ml po q12hr PRN Cough HYDROCOD POLST-CHLORPHEN POLST 71804910050 No Longer Active Piotr Daley DO Active AZITHROMYCIN 250 MG TABS 2 po qd x 1 day, then 1 po qd x 4 days AZITHROMYCIN 18011548678 No Longer Active Piotr Daley DO Active AZITHROMYCIN 250 MG TABS 2 po qd x 1 day, then 1 po qd x 4 days AZITHROMYCIN 32024171477 No Longer Active Piotr Daley DO Active LISINOPRIL-HYDROCHLOROTHIAZIDE 10-12.5 MG TABS 1 tab by mouth daily LISINOPRIL-HYDROCHLOROTHIAZIDE 04111151630 Active Hilary Ma MA Active LISINOPRIL 10 MG TABS 1/2-1 tab po every other day LISINOPRIL 01374807282 No Longer Active Piotr Daley DO Active VENTOLIN HFA 108 (90 BASE) MCG/ACT AERS 2 puffs four times a day PRN cough ALBUTEROL SULFATE 81212220854 No Longer Active Piotr Daley DO Active NYSTATIN-TRIAMCINOLONE 355590-9.1 UNIT/GM-% CREA Apply to area BID NYSTATIN-TRIAMCINOLONE 01644733253 No Longer Active Alena Chavira NIPPLE MACHINE OPERATOR Active PHISOHEX 3 % LIQD Use Directed HEXACHLOROPHENE 69327409486 No Longer Active Sandra Dodson Active AZITHROMYCIN 250 MG TABS 2 po qd x 1 day, then 1 po qd x 4 days AZITHROMYCIN 20688009927 No Longer Active Katrina Rinaldi MD PhD Active AZITHROMYCIN 250 MG TABS 2 po qd x 1 day, then 1 po qd x 4 days AZITHROMYCIN 73425334133 No Longer Active Piotr Daley DO Active AZITHROMYCIN 500 MG SOLR 1 po q day AZITHROMYCIN 85136086126 No Longer Active Piotr Daley DO Active NYSTATIN-TRIAMCINOLONE 626688-9.1 UNIT/GM-% CREA apply bid 08/19 NYSTATIN-TRIAMCINOLONE 02366257866 No Longer Active Piotr Daley DO Active IBUPROFEN 800 MG TABS 1 po q 8 hours prn pain sparinly IBUPROFEN 09131385650 No Longer Active Piotr Daley DO Active VITAMIN D3 5000 UNIT CAPS 1 po daily CHOLECALCIFEROL 38224776866 Active Piotr Daley DO Active IBUPROFEN 800 MG TABS 1 po q 8 hours prn pain sparinly IBUPROFEN 800 MG TABS 715495 IBUPROFEN Inactive NYSTATIN-TRIAMCINOLONE 193430-8.1 UNIT/GM-% CREA apply bid 08/19 NYSTATIN-TRIAMCINOLONE 027106-3.1 UNIT/GM-% CREA 3567169 NYSTATIN- TRIAMCINOLONE Inactive AZITHROMYCIN 500 MG SOLR 1 po q day AZITHROMYCIN 500 MG SOLR 12422487412 AZITHROMYCIN Inactive VENTOLIN HFA 108 (90 BASE) MCG/ACT AERS 2 puffs four times a day PRN cough VENTOLIN HFA 108 (90 BASE) MCG/ACT AERS ALBUTEROL SULFATE Inactive LISINOPRIL 10 MG TABS 1/2-1 tab po every other day LISINOPRIL 10 MG TABS 829790 LISINOPRIL Inactive TUSSIONEX PENNKINETIC ER 10-8 MG/5ML LQCR 5ml po q12hr PRN Cough TUSSIONEX PENNKINETIC ER 10-8 MG/5ML LQCR HYDROCOD POLST- CHLORPHEN POLST Inactive PROMETHAZINE HCL 25 MG TABS 1 four times a day as needed for nausea/vomiting PROMETHAZINE HCL 25 MG TABS 492615 PROMETHAZINE HCL Inactive PREDNISONE 20 MG TAB 1 tablet twice daily for 2 days, then 1 tablet once daily for 2 days PREDNISONE 20 MG TAB 615590 PREDNISONE Inactive WARFARIN SODIUM 4 MG TABS 1 tab every evening WARFARIN SODIUM 4 MG TABS 079436 WARFARIN SODIUM Inactive LOMOTIL 2.5-0.025 MG TAB 1 to 2 four times a day as needed for diarrhea 10/13 LOMOTIL 2.5-0.025 MG TAB 0042713 DIPHENOXYLATE-ATROPINE Inactive IBUPROFEN 800 MG TABS 1 tab every 8 hours as needed IBUPROFEN 800 MG TABS 321960 IBUPROFEN Inactive PREDNISONE 20 MG TAB 2 tablets today, then 1 tablet days 2 through 4 PREDNISONE 20 MG TAB 331193 PREDNISONE Inactive AZITHROMYCIN 250 MG TABS 2 po qd x 1 day, then 1 po qd x 4 days AZITHROMYCIN 250 MG TABS 9381963 AZITHROMYCIN Inactive AZITHROMYCIN 250 MG TABS 2 po qd x 1 day, then 1 po qd x 4 days AZITHROMYCIN 250 MG TABS 5638580 AZITHROMYCIN Inactive NYSTATIN-TRIAMCINOLONE 672233-8.1 UNIT/GM-% CREA Apply to area BID NYSTATIN-TRIAMCINOLONE 220418-2.1 UNIT/GM-% CREA 7894599 NYSTATIN-TRIAMCINOLONE Inactive AZITHROMYCIN 250 MG TABS 2 po qd x 1 day, then 1 po qd x 4 days AZITHROMYCIN 250 MG TABS 5909690 AZITHROMYCIN Inactive AZITHROMYCIN 250 MG TABS 2 po qd x 1 day, then 1 po qd x 4 days AZITHROMYCIN 250 MG TABS 7378190 AZITHROMYCIN Inactive AZITHROMYCIN 250 MG TABS 2 po qd x 1 day, then 1 po qd x 4 days AZITHROMYCIN 250 MG TABS 3599060 AZITHROMYCIN Inactive Advance Directives Directive Description Start [...] mg/g mg/g{creat} 0-29 sodium, serum 140 mmol/L 519-872 1407/07/17 potassium, serum 4.2 mmol/L 3.5-5.2 chloride, serum [...] ratio (INR) 2.4 1.0-3.5 prothrombin time (patient) 17.5 SECS s [...] prothrombin time (patient) 17.3 SECS s 11.1-13.4 Lab Report: Prothrombin Time, [...] 5.0-8.5 Encounters Code Encounter Date Provider Facility CPT-77465 Level 3 Est. Patient 15:14:31 TROLLEY WORKER Piotr Wilson [facility] CPT-45747 Level 3 Est. Patient 09:20:13 [employer]OLLEY WORKER Piotr Wilson [facility] CPT-53958 Level 3 Est. Patient 09:49:40 CDT Piotr Wilson [facility] CPT-71229 Level 3 Est. Patient 16:28:11 CDT Piotr Wilson [facility] CPT-02158 Level 3 Est. Patient 12:41:58 TROLLEY WORKER Piotr Wilson [facility] CPT-07621 Level 3 Est. Patient 09:21:24 CDT Piotr Wilson [facility] CPT-32396 Level 3 Est. Patient 09:21:11 CDT Piotr Wilson [facility] CPT-65390 Level 3 Est. Patient 11:16:29 TROLLEY WORKER Piotr Wilson [facility] CPT-15005 Level 3 Est. Patient 18:40:19 TROLLEY WORKER Piotr Daley [facility] CPT-01509 Level 3 Est. Patient 19:30:50 CDT Piotr Daley [facility] CPT-17411 Level 3 Est. Patient 22:06:44 CDT Katrina Rinaldi MD [facility] CPT-42830 Level 3 Est. Patient 14:20:00 CDT Piotr Daley [facility] CPT-58210 Level 3 Est. Patient 14:15:22 TROLLEY WORKER Piotr Daley [facility] CPT-64269 Level 3 Est. Patient 20:19:57 TROLLEY WORKER Piotr Daely [facility] CPT-16304 Level 3 Est. Patient 16:44:32 CDT Piotr Daley [facility] CPT-50264 Level 3 Est. Patient 08:48:46 TROLLEY WORKER Piotr Daley [facility] CPT-84180 Level 3 Est. Patient 21:01:21 CDT Piotr Wilson [facility] Procedures Code Procedure Name Date Entry Date Standard Description CPT-24685 Thoracolumbar AP/Lat 15:19:19 TROLLEY WORKER CPT-G0438 Initial Annual Wellness Exam 12:18:54 [employer]OLLEY WORKER CPT-51527 Knee 3V 09:57:38 CDT CPT-OV Office Visit 15:45:01 TROLLEY WORKER CPT-57043 Abd compl w upright 17:10:25 CDT
--- OUTSIDE RECORDS SUMMARY | 2018-07-18 09:58 | XMS REPORT | Clinical Summary ---
Author Author Admin, E Organization [employer] Address Unknown Phone Unavailable Allergies, Adverse Reactions, [...] anticoagulants Seborrheic keratosis 702.19 Active Piotr Katie Dei DO Other seborrheic keratosis Bronchitis-Acute 466.0 Inactive [...] neoplasm of prostate V10.46 Active Alina Meyers [employer] IN[employer]LE Personal history of malignant neoplasm of prostate Coronary artery disease 414.00 Active Alina Luigi ARIST[place]ES Coronary atherosclerosis of unspecified type of vessel, [place] or graft Back pain, thoracic region, left 724.1 Inactive Piotr Daley DO Pain in thoracic spine Thoracic back pain 724.5 Active Piotr Wilson Edi DO Backache, unspecified Back pain lumbar 724.2 Active Piotr Daley DO Lumbago Peripheral neuropathy, lower extremity, left 356.9 Active 02/19 Piotr W Edi DO Unspecified hereditary and idiopathic peripheral neuropathy Insect bite 919.4 Active Nella Harris [employer] Insect bite, nonvenomous, of other, multiple, and unspecified sites, without mention of infection Pruritus 698.9 Active Nella Harris [employer] Unspecified pruritic disorder FLANK PAIN, RIGHT ICD-789.09 [...] by mouth BID x10 days DOXYCYCLINE HYCLATE 29542834994 No Longer Active Nella Harris APRN Active WARFARIN SODIUM 5 MG ORAL TABLET 1 tablet daily M-S, 1/2 tab on Heart WARFARIN SODIUM 84524073377 Active Anahy Loja Active PROAIR HFA 108 (90 Base) MCG/ACT INHALATION AEROSOL SOLUTION 1-2 puffs four times a day as needed ALBUTEROL SULFATE 06663874113 Active Matthew Rangel MD Active PREDNISONE 20 MG ORAL TABLET 2 tabs daily for 3 days, 1 tab daily for 3 days, 1/2 tab daily for 2 days PREDNISONE 02550067176 No Longer Active Matthew Rangel MD Active TRAMADOL HCL 50 MG ORAL TABLET 1 po tid with ES Tylenol TRAMADOL HCL 99719574512 No Longer Active Matthew Rangel MD Active GABAPENTIN 300 MG ORAL CAPSULE 1 po q hs for nerve pain GABAPENTIN 02505646561 No Longer Active Matthew Rangel MD Active PREDNISONE 20 MG ORAL TABLET 2 tablets today, then 1 tablet days 2 through 4 PREDNISONE 87027267326 No Longer Active Piotr Daley DO Active AZITHROMYCIN 250 MG ORAL TABLET 2 po qd x 1 day, then 1 po qd x 4 days 07/12 AZITHROMYCIN 62869537347 No Longer Active Piotr Daley DO Active IBUPROFEN 800 MG ORAL TABLET 1 tab every 8 hours as needed 07/12 IBUPROFEN 25197086975 No Longer Active Piotr Daley DO Active LOMOTIL 2.5-0.025 MG ORAL TABLET 1 to 2 four times a day as needed for diarrhea DIPHENOXYLATE-ATROPINE 68024345563 No Longer Active Piotr Daley DO Active WARFARIN SODIUM 4 MG ORAL TABLET 1 tab every evening WARFARIN SODIUM 27602800377 No Longer Active Piotr Daley DO Active PREDNISONE 20 MG ORAL TABLET 1 tablet twice daily for 2 days, then 1 tablet once daily for 2 days PREDNISONE 92847912365 No Longer Active Piotr Daley DO Active PROMETHAZINE HCL 25 MG ORAL TABLET 1 four times a day as needed for nausea/ vomiting PROMETHAZINE HCL 58433675940 No Longer Active Piotr Daley DO Active TUSSIONEX PENNKINETIC ER 10-8 MG/5ML ORAL SUSPENSION EXTENDED RELEASE 5ml po q12hr PRN Cough HYDROCOD POLST-CHLORPHEN POLST 27572195465 No Longer Active Piotr Daley DO Active AZITHROMYCIN 250 MG ORAL TABLET 2 po qd x 1 day, then 1 po qd x 4 days 10/13 AZITHROMYCIN 87687372947 No Longer Active Piotr Daley DO Active AZITHROMYCIN 250 MG ORAL TABLET 2 po qd x 1 day, then 1 po qd x 4 days 05/07 AZITHROMYCIN 82996431139 No Longer Active Piotr Daley DO Active LISINOPRIL-HYDROCHLOROTHIAZIDE 10-12.5 MG ORAL TABLET 1 tab by mouth daily LISINOPRIL-HYDROCHLOROTHIAZIDE 86553525624 Active Catalina Freitas Active LISINOPRIL 10 MG ORAL TABLET 1/2-1 tab po every other day LISINOPRIL 39181284835 No Longer Active Piotr Daley DO Active VENTOLIN HFA 108 (90 Base) MCG/ACT INHALATION AEROSOL SOLUTION 2 puffs four times a day PRN cough ALBUTEROL SULFATE 17835535547 No Longer Active Piotr Daley DO Active NYSTATIN-TRIAMCINOLONE 675635-5.1 UNIT/GM-% EXTERNAL CREAM Apply to area BID NYSTATIN-TRIAMCINOLONE 20575760416 No Longer Active Alena Chavira CONTROL TECHNICIAN Active PHISOHEX 3 % LIQD Use Directed HEXACHLOROPHENE 23169529822 No Longer Active Sandra [place] Active AZITHROMYCIN 250 MG ORAL TABLET 2 po qd x 1 day, then 1 po qd x 4 days 10/21 AZITHROMYCIN 89571267886 No Longer Active Katrina Rinaldi MD PhD Active AZITHROMYCIN 250 MG ORAL TABLET 2 po qd x 1 day, then 1 po qd x 4 days 10/16 AZITHROMYCIN 50980450868 No Longer Active Piotr Daley DO Active AZITHROMYCIN 500 MG INTRAVENOUS SOLUTION RECONSTITUTED 1 po q day AZITHROMYCIN 69154435147 No Longer Active Piotr Daley DO Active NYSTATIN-TRIAMCINOLONE 493107-8.1 UNIT/GM-% EXTERNAL CREAM apply bid NYSTATIN-TRIAMCINOLONE 70257334503 No Longer Active Piotr Daley DO Active IBUPROFEN 800 MG ORAL TABLET 1 po q 8 hours prn pain sparinly IBUPROFEN 07873186181 No Longer Active Piotr Daley DO Active VITAMIN D3 5000 UNIT ORAL CAPSULE 1 po daily CHOLECALCIFEROL 24782867044 Active Piotr Daley DO Active IBUPROFEN 800 MG ORAL TABLET 1 po q 8 hours prn pain sparinly IBUPROFEN 800 MG ORAL TABLET 500625 IBUPROFEN Inactive NYSTATIN-TRIAMCINOLONE 956454-8.1 UNIT/GM-% EXTERNAL CREAM apply bid NYSTATIN-TRIAMCINOLONE 289237-8.1 UNIT/GM-% EXTERNAL CREAM 8787261 NYSTATIN-TRIAMCINOLONE Inactive AZITHROMYCIN 500 MG INTRAVENOUS SOLUTION RECONSTITUTED 1 po q day AZITHROMYCIN 500 MG INTRAVENOUS SOLUTION RECONSTITUTED 58681991070 AZITHROMYCIN Inactive VENTOLIN HFA 108 (90 Base) MCG/ACT INHALATION AEROSOL SOLUTION 2 puffs four times a day PRN cough VENTOLIN HFA 108 (90 Base) MCG/ ACT INHALATION AEROSOL SOLUTION ALBUTEROL SULFATE Inactive LISINOPRIL 10 MG ORAL TABLET 1/2-1 tab po every other day LISINOPRIL 10 MG ORAL TABLET 828066 LISINOPRIL Inactive TUSSIONEX PENNKINETIC ER 10-8 MG/5ML ORAL SUSPENSION EXTENDED RELEASE 5ml po q12hr PRN Cough TUSSIONEX PENNKINETIC ER 10-8 MG/5ML ORAL SUSPENSION EXTENDED RELEASE HYDROCOD POLST-CHLORPHEN POLST Inactive PROMETHAZINE HCL 25 MG ORAL TABLET 1 four times a day as needed for nausea/ vomiting PROMETHAZINE HCL 25 MG ORAL TABLET 417905 PROMETHAZINE HCL Inactive PREDNISONE 20 MG ORAL TABLET 1 tablet twice daily for 2 days, then 1 tablet once daily for 2 days PREDNISONE 20 MG ORAL TABLET 553996 PREDNISONE Inactive WARFARIN SODIUM 4 MG ORAL TABLET 1 tab every evening WARFARIN SODIUM 4 MG ORAL TABLET 279715 WARFARIN SODIUM Inactive LOMOTIL 2.5-0.025 MG ORAL TABLET 1 to 2 four times a day as needed for diarrhea LOMOTIL 2.5-0.025 MG ORAL TABLET 1051783 DIPHENOXYLATE-ATROPINE Inactive IBUPROFEN 800 MG ORAL TABLET 1 tab every 8 hours as needed 07/12 IBUPROFEN 800 MG ORAL TABLET 717902 IBUPROFEN Inactive PREDNISONE 20 MG ORAL TABLET 2 tablets today, then 1 tablet days 2 through 4 PREDNISONE 20 MG ORAL TABLET 528187 PREDNISONE Inactive GABAPENTIN 300 MG ORAL CAPSULE 1 po q hs for nerve pain GABAPENTIN 300 MG ORAL CAPSULE 636098 GABAPENTIN Inactive TRAMADOL HCL 50 MG ORAL TABLET 1 po tid with ES Tylenol TRAMADOL HCL 50 MG ORAL TABLET 265216 TRAMADOL HCL Inactive AZITHROMYCIN 250 MG ORAL TABLET 2 po qd x 1 day, then 1 po qd x 4 days 10/16 AZITHROMYCIN 250 MG ORAL TABLET 839614 AZITHROMYCIN Inactive AZITHROMYCIN 250 MG ORAL TABLET 2 po qd x 1 day, then 1 po qd x 4 days 10/21 AZITHROMYCIN 250 MG ORAL TABLET 174558 AZITHROMYCIN Inactive NYSTATIN-TRIAMCINOLONE 853467-4.1 UNIT/GM-% EXTERNAL CREAM Apply to area BID NYSTATIN-TRIAMCINOLONE 516901-8.1 UNIT/GM-% EXTERNAL CREAM 4950730 NYSTATIN-TRIAMCINOLONE Inactive AZITHROMYCIN 250 MG ORAL TABLET 2 po qd x 1 day, then 1 po qd x 4 days 05/07 AZITHROMYCIN 250 MG ORAL TABLET 864143 AZITHROMYCIN Inactive AZITHROMYCIN 250 MG ORAL TABLET 2 po qd x 1 day, then 1 po qd x 4 days 10/13 AZITHROMYCIN 250 MG ORAL TABLET 569140 AZITHROMYCIN Inactive AZITHROMYCIN 250 MG ORAL TABLET 2 po qd x 1 day, then 1 po qd x 4 days 07/12 AZITHROMYCIN 250 MG ORAL TABLET 573655 AZITHROMYCIN Inactive PREDNISONE 20 MG ORAL TABLET 2 tabs daily for 3 days, 1 tab daily for 3 days, 1/2 tab daily for 2 days PREDNISONE 20 MG ORAL TABLET 006575 PREDNISONE Inactive DOXYCYCLINE HYCLATE 100 MG ORAL CAPSULE 1 cap by mouth BID x10 days DOXYCYCLINE HYCLATE 100 MG ORAL CAPSULE 1426821 DOXYCYCLINE HYCLATE Inactive Advance Directives Directive Description [...] % 11.0-15.0 platelet count 172 THOUSAND/UL 10*3/mm3 280-183 5194/04/12 mean platelet volume 8.6 fL 7.5-12.5 Lab Report: Prostatic Specific Ag, Prothrombin Time - Chemistry prostate specific antigen 0.01 ng/mL 0.00-4.00 Lab Report: Prostatic Specific Ag, Prothrombin Time - Coagulation prothrombin time (patient) 25.9 SECS s 11.1-13.4 international normalized ratio (INR) 3.7 1.0-3.5 Lab Report: Prothrombin Time - Coagulation international normalized ratio (INR) 4.2 1.0-3.5 prothrombin time (patient) 27.8 SECS s 11.1-13.4 international normalized ratio (INR) 3.3 1.0-3.5 prothrombin time (patient) 24.3 SECS s 11.1-13.4 Lab Report: Prothrombin Time Hemochron - Coagulation prothrombin time (patient) 33.0 SECS s 18.9-24.9 Encounters Code Encounter Date Provider Facility CPT-50275 Level 3 Est. Patient 17:10:19 CDT Nella Harris APRN [facility] CPT-78976 Level 3 Est. Patient 10:48:17 RADIO INTERFERENCE EXPERT Matthew Rangel MD [facility] CPT-73040 Level 4 Est. Patient 17:15:07 RADIO INTERFERENCE EXPERT Piotr Daley [facility] CPT-75992 Level 3 Est. Patient 12:46:13 RADIO INTERFERENCE EXPERT Piotr Daley [facility] CPT-67428 Level 3 Est. Patient 15:14:31 RADIO INTERFERENCE EXPERT Piotr Daley [facility] CPT-19710 Level 3 Est. Patient 09:20:13 RADIO INTERFERENCE EXPERT Piotr Daley [facility] CPT-85846 Level 3 Est. Patient 09:49:40 CDT Piotr Wilson [facility] CPT-18984 Level 3 Est. Patient 16:28:11 CDT Piotr Daley [facility] CPT-25687 Level 3 Est. Patient 12:41:58 RADIO INTERFERENCE EXPERT Piotr Daley [facility] CPT-40816 Level 3 Est. Patient 09:21:24 CDT Piotr Daley [facility] CPT-30773 Level 3 Est. Patient 09:21:11 CDT Piotr Daley [facility] CPT-23551 Level 3 Est. Patient 11:16:29 RADIO INTERFERENCE EXPERT Piotr Daley [facility] CPT-34119 Level 3 Est. Patient 18:40:19 RADIO INTERFERENCE EXPERT Piotr Daley [facility] CPT-73185 Level 3 Est. Patient 19:30:50 CDT Piotr Daley [facility] CPT-04479 Level 3 Est. Patient 22:06:44 CDT Katrina Rinaldi MD PhD [facility] CPT-59961 Level 3 Est. Patient 14:20:00 CDT Piotr Daley [facility] CPT-16526 Level 3 Est. Patient 14:15:22 RADIO INTERFERENCE EXPERT Piotr Daley [facility] CPT-00292 Level 3 Est. Patient 20:19:57 RADIO INTERFERENCE EXPERT Piotr Daley [facility] CPT-00142 Level 3 Est. Patient 16:44:32 CDT Piotr Katie Daley [facility] CPT-50326 Level 3 Est. Patient 08:48:46 RADIO INTERFERENCE EXPERT Piotr Daley [facility] CPT-40541 Level 3 Est. Patient 21:01:21 CDT Piotr Daley [facility] Procedures Code Procedure Name Date Entry Date Standard Description CPT-95438 BMP - LAB USE ONLY 17:19:11 RADIO INTERFERENCE EXPERT CPT-15135 PT/INR - LAB USE ONLY 17:19:10 RADIO INTERFERENCE EXPERT CPT-44352 Venipuncture Draw Fee 17:19:10 RADIO INTERFERENCE EXPERT CPT-62843 PT/INR - LAB USE ONLY 08:12:25 RADIO INTERFERENCE EXPERT CPT-83959 Venipuncture Draw Fee 08:12:24 RADIO INTERFERENCE EXPERT CPT-91197 Venipuncture Draw Fee 11:31:07 RADIO INTERFERENCE EXPERT CPT-50268 TPSA - LAB USE ONLY 11:31:07 RADIO INTERFERENCE EXPERT CPT-11815 PT/INR - LAB USE ONLY 11:31:07 RADIO INTERFERENCE EXPERT CPT-G0439 [facility] Annual Wellness Exam 09:59:29 RADIO INTERFERENCE EXPERT CPT-62004 Creatinine - LAB USE ONLY 14:37:55 RADIO INTERFERENCE EXPERT CPT-82391 PT/INR - LAB USE ONLY 14:37:55 RADIO INTERFERENCE EXPERT CPT-25718 Venipuncture Draw Fee 14:37:55 RADIO INTERFERENCE EXPERT CPT-87878 LS spine comp w obliques - XRAY USE ONLY 12:59:25 RADIO INTERFERENCE EXPERT CPT-63661 PT/INR - LAB USE ONLY 13:49:20 CDT CPT-33196 Venipuncture Draw Fee 13:49:19 CDT CPT-81931 PT/INR - LAB USE ONLY 15:48:49 CDT CPT-09466 Venipuncture Draw Fee 15:48:49 CDT CPT-10802 Venipuncture Draw Fee 11:31:59 CDT CPT-54940 PT/INR - LAB USE ONLY 11:31:59 CDT CPT-01167 Venipuncture Draw Fee 13:29:15 CDT CPT-93143 Thoracolumbar AP/Lat 15:19:19 [employer]IO INTERFERENCE EXPERT CPT-G0438 Initial Annual Wellness Exam 12:18:54 RADIO INTERFERENCE EXPERT CPT-65784 Knee 3V 09:57:38 CDT CPT-OV Office Visit 15:45:01 RADIO INTERFERENCE EXPERT CPT-16095 Abd compl w upright 17:10:25 CDT
--- OUTSIDE RECORDS SUMMARY | 2018-07-18 09:59 | XMS REPORT | Clinical Summary ---
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 THROMBOPHLEBITIS, LEG, 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 Inactive Sirisha Chen 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 Seborrheic keratosis ICD-702.19 Inactive Sirisha Chen 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 Bronchitis-Acute ICD-466.0 Inactive Piotr Daley DO Leg pain, right ICD-729.5 Inactive Sirisha Chen 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 Right leg pain ICD-729.5 Inactive Sirisha Chen 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 Bronchitis-Acute ICD-466.0 Inactive Sirisha Chen 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 Knee pain, left ICD-719.46 Inactive Sirisha Chen CR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 Actinic keratoses ICD-702.0 Inactive Sirisha Chen CR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 Back pain, thoracic region, left ICD-724.1 Inactive [...] as needed for muscle spasm/pain CYCLOBENZAPRINE HCL 53912793575 Active Piotr Daley DO Active PREDNISONE 20 MG ORAL TABLET two tabs by mouth today, then one tab by mouth days two and three PREDNISONE 12200174661 Active Piotr Katie Edi LEON Active ZITHROMAX 250 MG ORAL TABLET Take two (2 ) tablets day one, then one (1) tablet a day for four (4) more days AZITHROMYCIN 58866772950 Active Piotr Daley Active PROAIR HFA 108 (90 BASE) MCG/ACT INHALATION AEROSOL SOLUTION 1-2 puffs four times a day as needed ALBUTEROL SULFATE 67691909191 No Longer Active Emelyn Norris Active DOXYCYCLINE HYCLATE 100 MG ORAL CAPSULE 1 cap by mouth BID x10 days DOXYCYCLINE HYCLATE 20315331407 No Longer Active Nella Harris APRN Active WARFARIN SODIUM 5 MG ORAL TABLET 1 tablet daily M-S, 1/2 tab on Heart WARFARIN SODIUM 11379662362 Active Piotr Wilson Edi LEON Active PREDNISONE 20 MG ORAL TABLET 2 tabs daily for 3 days, 1 tab daily for 3 days, 1/2 tab daily for 2 days PREDNISONE 17887487943 No Longer Active Matthew Rangel MD Active TRAMADOL HCL 50 MG ORAL TABLET 1 po tid with ES Tylenol TRAMADOL HCL 47589270287 No Longer Active Matthew Rangel MD Active GABAPENTIN 300 MG ORAL CAPSULE 1 po q hs for nerve pain GABAPENTIN 67615330111 No Longer Active Matthew Rangel MD Active PREDNISONE 20 MG ORAL TABLET 2 tablets today, then 1 tablet days 2 through 4 PREDNISONE 88113789677 No Longer Active Piotr Daley DO Active AZITHROMYCIN 250 MG ORAL TABLET 2 po qd x 1 day, then 1 po qd x 4 days 07/12 AZITHROMYCIN 16448300598 No Longer Active Piotr Daley DO Active IBUPROFEN 800 MG ORAL TABLET 1 tab every 8 hours as needed 07/12 IBUPROFEN 27980225258 No Longer Active Piotr Daley DO Active LOMOTIL 2.5-0.025 MG ORAL TABLET 1 to 2 four times a day as needed for diarrhea DIPHENOXYLATE-ATROPINE 10321021078 No Longer Active Piotr Daley DO Active WARFARIN SODIUM 4 MG ORAL TABLET 1 tab every evening WARFARIN SODIUM 58902884446 No Longer Active Piotr Daley DO Active PREDNISONE 20 MG ORAL TABLET 1 tablet twice daily for 2 days, then 1 tablet once daily for 2 days PREDNISONE 14528936880 No Longer Active Piotr Daley DO Active PROMETHAZINE HCL 25 MG ORAL TABLET 1 four times a day as needed for nausea/ vomiting PROMETHAZINE HCL 24290881969 No Longer Active Piotr Daley DO Active TUSSIONEX PENNKINETIC ER 10-8 MG/5ML ORAL SUSPENSION EXTENDED RELEASE 5ml po q12hr PRN Cough HYDROCOD POLST-CHLORPHEN POLST 55765005718 No Longer Active Piotr Daley DO Active AZITHROMYCIN 250 MG ORAL TABLET 2 po qd x 1 day, then 1 po qd x 4 days 10/13 AZITHROMYCIN 15008621064 No Longer Active Piotr Daley DO Active AZITHROMYCIN 250 MG ORAL TABLET 2 po qd x 1 day, then 1 po qd x 4 days 05/07 AZITHROMYCIN 36016922679 No Longer Active Piotr Daley DO Active LISINOPRIL-HYDROCHLOROTHIAZIDE 10-12.5 MG ORAL TABLET 1 tab by mouth daily LISINOPRIL-HYDROCHLOROTHIAZIDE 79128294921 Active Piotr Daley DO Active LISINOPRIL 10 MG ORAL TABLET 1/2-1 tab po every other day LISINOPRIL 58858846355 No Longer Active Piotr Daley DO Active VENTOLIN HFA 108 (90 Base) MCG/ACT INHALATION AEROSOL SOLUTION 2 puffs four times a day PRN cough ALBUTEROL SULFATE 40658982087 No Longer Active Piotr Daley DO Active NYSTATIN-TRIAMCINOLONE 153196-6.1 UNIT/GM-% EXTERNAL CREAM Apply to area BID NYSTATIN-TRIAMCINOLONE 02620538760 No Longer Active Alena Chavira CR[employer]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 Active PHISOHEX 3 % LIQD Use Directed HEXACHLOROPHENE 27483902758 No Longer Active Sandra Amherst Active AZITHROMYCIN 250 MG ORAL TABLET 2 po qd x 1 day, then 1 po qd x 4 days 10/21 AZITHROMYCIN 69884403755 No Longer Active Katrina Rinaldi MD PhD Active AZITHROMYCIN 250 MG ORAL TABLET 2 po qd x 1 day, then 1 po qd x 4 days 10/16 AZITHROMYCIN 45253918132 No Longer Active Piotr Daley DO Active AZITHROMYCIN 500 MG INTRAVENOUS SOLUTION RECONSTITUTED 1 po q day AZITHROMYCIN 05404546150 No Longer Active Piotr Daley DO Active NYSTATIN-TRIAMCINOLONE 396905-4.1 UNIT/GM-% EXTERNAL CREAM apply bid NYSTATIN-TRIAMCINOLONE 94976904508 No Longer Active Piotr Daley DO Active IBUPROFEN 800 MG ORAL TABLET 1 po q 8 hours prn pain sparinly IBUPROFEN 71343803459 No Longer Active Piotr Daley DO Active VITAMIN D3 5000 UNIT ORAL CAPSULE 1 po daily CHOLECALCIFEROL 44299771458 Active Piotr Daley DO Active IBUPROFEN 800 MG ORAL TABLET 1 po q 8 hours prn pain sparinly IBUPROFEN 800 MG ORAL TABLET 946672 IBUPROFEN Inactive NYSTATIN-TRIAMCINOLONE 043572-4.1 UNIT/GM-% EXTERNAL CREAM apply bid NYSTATIN-TRIAMCINOLONE 612372-5.1 UNIT/GM-% EXTERNAL CREAM 3292829 NYSTATIN-TRIAMCINOLONE Inactive AZITHROMYCIN 500 MG INTRAVENOUS SOLUTION RECONSTITUTED 1 po q day AZITHROMYCIN 500 MG INTRAVENOUS SOLUTION RECONSTITUTED 50855798932 AZITHROMYCIN Inactive VENTOLIN HFA 108 (90 Base) MCG/ACT INHALATION AEROSOL SOLUTION 2 puffs four times a day PRN cough VENTOLIN HFA 108 (90 Base) MCG/ ACT INHALATION AEROSOL SOLUTION ALBUTEROL SULFATE Inactive LISINOPRIL 10 MG ORAL TABLET 1/2-1 tab po every other day LISINOPRIL 10 MG ORAL TABLET 099502 LISINOPRIL Inactive TUSSIONEX PENNKINETIC ER 10-8 MG/5ML ORAL SUSPENSION EXTENDED RELEASE 5ml po q12hr PRN Cough TUSSIONEX PENNKINETIC ER 10-8 MG/5ML ORAL SUSPENSION EXTENDED RELEASE HYDROCOD POLST-CHLORPHEN POLST Inactive PROMETHAZINE HCL 25 MG ORAL TABLET 1 four times a day as needed for nausea/ vomiting PROMETHAZINE HCL 25 MG ORAL TABLET 744104 PROMETHAZINE HCL Inactive PREDNISONE 20 MG ORAL TABLET 1 tablet twice daily for 2 days, then 1 tablet once daily for 2 days PREDNISONE 20 MG ORAL TABLET 641606 PREDNISONE Inactive WARFARIN SODIUM 4 MG ORAL TABLET 1 tab every evening WARFARIN SODIUM 4 MG ORAL TABLET 423801 WARFARIN SODIUM Inactive LOMOTIL 2.5-0.025 MG ORAL TABLET 1 to 2 four times a day as needed for diarrhea LOMOTIL 2.5-0.025 MG ORAL TABLET 4410957 DIPHENOXYLATE-ATROPINE Inactive IBUPROFEN 800 MG ORAL TABLET 1 tab every 8 hours as needed 07/12 IBUPROFEN 800 MG ORAL TABLET 194610 IBUPROFEN Inactive PREDNISONE 20 MG ORAL TABLET 2 tablets today, then 1 tablet days 2 through 4 PREDNISONE 20 MG ORAL TABLET 330564 PREDNISONE Inactive GABAPENTIN 300 MG ORAL CAPSULE 1 po q hs for nerve pain GABAPENTIN 300 MG ORAL CAPSULE 151341 GABAPENTIN Inactive TRAMADOL HCL 50 MG ORAL TABLET 1 po tid with ES Tylenol TRAMADOL HCL 50 MG ORAL TABLET 327315 TRAMADOL HCL Inactive PROAIR HFA 108 (90 BASE) MCG/ACT INHALATION AEROSOL SOLUTION 1-2 puffs four times a day as needed PROAIR HFA 108 (90 BASE) MCG/ACT INHALATION AEROSOL SOLUTION ALBUTEROL SULFATE Inactive AZITHROMYCIN 250 MG ORAL TABLET 2 po qd x 1 day, then 1 po qd x 4 days 10/16 AZITHROMYCIN 250 MG ORAL TABLET 322234 AZITHROMYCIN Inactive AZITHROMYCIN 250 MG ORAL TABLET 2 po qd x 1 day, then 1 po qd x 4 days 10/21 AZITHROMYCIN 250 MG ORAL TABLET 074304 AZITHROMYCIN Inactive NYSTATIN-TRIAMCINOLONE 660791-9.1 UNIT/GM-% EXTERNAL CREAM Apply to area BID NYSTATIN-TRIAMCINOLONE 067533-7.1 UNIT/GM-% EXTERNAL CREAM 0896429 NYSTATIN-TRIAMCINOLONE Inactive AZITHROMYCIN 250 MG ORAL TABLET 2 po qd x 1 day, then 1 po qd x 4 days 05/07 AZITHROMYCIN 250 MG ORAL TABLET 753752 AZITHROMYCIN Inactive AZITHROMYCIN 250 MG ORAL TABLET 2 po qd x 1 day, then 1 po qd x 4 days 10/13 AZITHROMYCIN 250 MG ORAL TABLET 875161 AZITHROMYCIN Inactive AZITHROMYCIN 250 MG ORAL TABLET 2 po qd x 1 day, then 1 po qd x 4 days 07/12 AZITHROMYCIN 250 MG ORAL TABLET 529054 AZITHROMYCIN Inactive PREDNISONE 20 MG ORAL TABLET 2 tabs daily for 3 days, 1 tab daily for 3 days, 1/2 tab daily for 2 days PREDNISONE 20 MG ORAL TABLET 781372 PREDNISONE Inactive DOXYCYCLINE HYCLATE 100 MG ORAL CAPSULE 1 cap by mouth BID x10 days DOXYCYCLINE HYCLATE 100 MG ORAL CAPSULE 6745314 DOXYCYCLINE HYCLATE Inactive Advance Directives Directive Description [...] Panel - Chemistry sodium, serum 141 mmol/L 837-765 9855/01/24 potassium, serum 4.3 mmol/L 3.5-5.2 chloride, serum [...] % 11.0-15.0 platelet count 172 THOUSAND/UL 10*3/mm3 552-026 6669/04/12 mean platelet volume 8.6 fL 7.5-12.5 Lab Report: Prothrombin Time - Coagulation prothrombin time (patient) 27.8 SECS s 11.1-13.4 international normalized ratio (INR) 4.2 1.0-3.5 Lab Report: Prothrombin Time Hemochron - Coagulation prothrombin time (patient) 33.0 SECS s 18.9-24.9 Encounters Code Encounter Date Provider Facility CPT-65911 Level 3 Est. Patient 15:56:17 TILE GRADER Piotr Daley [facility] CPT-03101 Level 3 Est. Patient 10:34:54 TILE GRADER Piotr Daley [facility] CPT-70886 Level 3 Est. Patient 17:10:19 [facility] Level 3 Est. Patient 10:48:17 TILE GRADER Matthew Rangel MD [facility] CPT-93110 Level 4 Est. Patient 17:15:07 TILE GRADER Piotr Daley [facility] CPT-42177 Level 3 Est. Patient 12:46:13 TILE GRADER Piotr Daley [facility] CPT-44142 Level 3 Est. Patient 15:14:31 TILE GRADER Piotr Daley [facility] CPT-66242 Level 3 Est. Patient 09:20:13 TILE GRADER Piotr Daley [facility] CPT-67364 Level 3 Est. Patient 09:49:40 CDT Piotr Daley [facility] CPT-28495 Level 3 Est. Patient 16:28:11 CDT Piotr Daley [facility] CPT-55736 Level 3 Est. Patient 12:41:58 TILE GRADER Piotr Daley [facility] CPT-07551 Level 3 Est. Patient 09:21:24 CDT Piotr Daley [facility] CPT-90198 Level 3 Est. Patient 09:21:11 CDT Piotr Daley [facility] CPT-75857 Level 3 Est. Patient 11:16:29 TILE GRADER Piotr Daley [facility] CPT-42405 Level 3 Est. Patient 18:40:19 TILE GRADER Piotr Daley [facility] CPT-02619 Level 3 Est. Patient 19:30:50 CDT Piotr Daley [facility] CPT-19647 Level 3 Est. Patient 22:06:44 CDT Katrina Rinaldi MD PhD [facility]-41985 Level 3 Est. Patient 14:20:00 CDT Piotr Daley [facility] CPT-01268 Level 3 Est. Patient 14:15:22 TILE GRADER Piotr Daley [facility] CPT-26916 Level 3 Est. Patient 20:19:57 TILE GRADER Piotr Daley [facility] CPT-03600 Level 3 Est. Patient 16:44:32 CDT Piotr Daley [facility] CPT-75196 Level 3 Est. Patient 08:48:46 TILE GRADER Piotr Daley [facility] CPT-85042 Level 3 Est. Patient 21:01:21 CDT Piotr Daley [facility] Procedures Code Procedure Name Date Entry Date Standard Description CPT-G0439 Subsequent Annual Wellness Exam 10:34:52 [facility] CPT-82004 BMP - LAB USE ONLY 17:19:11 TILE GRADER CPT-29764 PT/INR - LAB USE ONLY 17:19:10 [facility] CPT-05508 Venipuncture Draw Fee 17:19:10 TILE GRADER CPT-45920 PT/INR - LAB USE ONLY 08:12:25 TILE GRADER CPT-00913 Venipuncture Draw Fee 08:12:24 TILE GRADER CPT-25690 Venipuncture Draw Fee 11:31:07 TILE GRADER CPT-16375 TPSA - LAB USE ONLY 11:31:07 TILE GRADER CPT-14825 PT/INR - LAB USE ONLY 11:31:07 [facility] CPT-G0439 Subsequent Annual Wellness Exam 09:59:29 TILE GRADER CPT-52056 Creatinine - LAB USE ONLY 14:37:55 TILE GRADER CPT-44840 PT/INR - LAB USE ONLY 14:37:55 TILE GRADER CPT-03949 Venipuncture Draw Fee 14:37:55 TILE GRADER CPT-26572 LS spine comp w obliques - XRAY USE ONLY 12:59:25 TILE GRADER CPT-40112 PT/INR - LAB USE ONLY 13:49:20 CDT CPT-13168 Venipuncture Draw Fee 13:49:19 CDT CPT-40835 PT/INR - LAB USE ONLY 15:48:49 CDT CPT-65262 Venipuncture Draw Fee 15:48:49 CDT CPT-72042 Venipuncture Draw Fee 11:31:59 CDT CPT-82043 PT/INR - LAB USE ONLY 11:31:59 CDT CPT-21069 Venipuncture Draw Fee 13:29:15 CDT CPT-25142 Thoracolumbar AP/Lat 15:19:19 TILE GRADER CPT-G0438 Initial Annual Wellness Exam 12:18:54 TILE GRADER CPT-71948 Knee 3V 09:57:38 CDT CPT-OV Office Visit 15:45:01 TILE GRADER CPT-77080 Abd compl w upright 17:10:25 CDT
--- OUTSIDE RECORDS SUMMARY | 2018-07-18 10:00 | XMS REPORT | Clinical Summary ---
Author Author Admin, E Organization [employer] Address Unknown Phone Unavailable Allergies, Adverse Reactions, [...] neoplasm of prostate V10.46 Active Alina Meyers TWISTHAND Personal history of malignant neoplasm of prostate Coronary artery disease 414.00 Active Alina Luigi TWISTHAND Coronary atherosclerosis of unspecified type of vessel, point hope ira or graft Back pain, thoracic region, [...] MG TABS 1 tablet daily WARFARIN SODIUM 24495726535 Active Emelyn Goode RPT,RMA Active TRAMADOL HCL 50 MG TABS 1 po tid with ES Tylenol TRAMADOL HCL 94254936384 Active Piotr Daley DO Active PREDNISONE 20 MG TAB 2 tablets today, then 1 tablet days 2 through 4 PREDNISONE 40156904643 No Longer Active Piotr Daley DO Active AZITHROMYCIN 250 MG TABS 2 po qd x 1 day, then 1 po qd x 4 days AZITHROMYCIN 70939454053 No Longer Active Piotr Daley DO Active IBUPROFEN 800 MG TABS 1 tab every 8 hours as needed IBUPROFEN 89637883463 No Longer Active Piotr Daley DO Active LOMOTIL 2.5-0.025 MG TAB 1 to 2 four times a day as needed for diarrhea 10/13 DIPHENOXYLATE-ATROPINE 78551742950 No Longer Active Piotr Daley DO Active WARFARIN SODIUM 4 MG TABS 1 tab every evening WARFARIN SODIUM 59554672776 No Longer Active Piotr Daley DO Active PREDNISONE 20 MG TAB 1 tablet twice daily for 2 days, then 1 tablet once daily for 2 days PREDNISONE 82392208894 No Longer Active Piotr Daley DO Active PROMETHAZINE HCL 25 MG TABS 1 four times a day as needed for nausea/vomiting PROMETHAZINE HCL 50028104007 No Longer Active Piotr Daley DO Active TUSSIONEX PENNKINETIC ER 10-8 MG/5ML LQCR 5ml po q12hr PRN Cough HYDROCOD POLST-CHLORPHEN POLST 46096254281 No Longer Active Piotr W Edi DO Active AZITHROMYCIN 250 MG TABS 2 po qd x 1 day, then 1 po qd x 4 days AZITHROMYCIN 72752019945 No Longer Active Piotr Daley DO Active AZITHROMYCIN 250 MG TABS 2 po qd x 1 day, then 1 po qd x 4 days AZITHROMYCIN 62414130348 No Longer Active Piotr Daley DO Active LISINOPRIL-HYDROCHLOROTHIAZIDE 10-12.5 MG TABS 1 tab by mouth daily LISINOPRIL-HYDROCHLOROTHIAZIDE 00657629557 Active Hilary Ma MA Active LISINOPRIL 10 MG TABS 1/2-1 tab po every other day LISINOPRIL 67020885148 No Longer Active Piotr Daley DO Active VENTOLIN HFA 108 (90 BASE) MCG/ACT AERS 2 puffs four times a day PRN cough ALBUTEROL SULFATE 39741829561 No Longer Active Piotr Daley DO Active NYSTATIN-TRIAMCINOLONE 402029-5.1 UNIT/GM-% CREA Apply to area BID NYSTATIN-TRIAMCINOLONE 68472235398 No Longer Active Alena 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 [employer]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 PHISOHEX 3 % LIQD Use Directed HEXACHLOROPHENE 05256355903 No Longer Active Sandra Geff Active AZITHROMYCIN 250 MG TABS 2 po qd x 1 day, then 1 po qd x 4 days AZITHROMYCIN 22808723828 No Longer Active Katrina Rinaldi MD PhD Active AZITHROMYCIN 250 MG TABS 2 po qd x 1 day, then 1 po qd x 4 days AZITHROMYCIN 18121094259 No Longer Active Piotr Daley DO Active AZITHROMYCIN 500 MG SOLR 1 po q day AZITHROMYCIN 00479734988 No Longer Active Piotr Daley DO Active NYSTATIN-TRIAMCINOLONE 307812-6.1 UNIT/GM-% CREA apply bid 08/19 NYSTATIN-TRIAMCINOLONE 13355238923 No Longer Active Piotr Daley DO Active IBUPROFEN 800 MG TABS 1 po q 8 hours prn pain sparinly IBUPROFEN 70699268774 No Longer Active Piotr Daley DO Active VITAMIN D3 5000 UNIT CAPS 1 po daily CHOLECALCIFEROL 92570304793 Active Piotr Daley DO Active IBUPROFEN 800 MG TABS 1 po q 8 hours prn pain sparinly IBUPROFEN 800 MG TABS 241706 IBUPROFEN Inactive NYSTATIN-TRIAMCINOLONE 921207-1.1 UNIT/GM-% CREA apply bid 08/19 NYSTATIN-TRIAMCINOLONE 770526-8.1 UNIT/GM-% CREA 0642624 NYSTATIN- TRIAMCINOLONE Inactive AZITHROMYCIN 500 MG SOLR 1 po q day AZITHROMYCIN 500 MG SOLR 64065706301 AZITHROMYCIN Inactive VENTOLIN HFA 108 (90 BASE) MCG/ACT AERS 2 puffs four times a day PRN cough VENTOLIN HFA 108 (90 BASE) MCG/ACT AERS ALBUTEROL SULFATE Inactive LISINOPRIL 10 MG TABS 1/2-1 tab po every other day LISINOPRIL 10 MG TABS 421811 LISINOPRIL Inactive TUSSIONEX PENNKINETIC ER 10-8 MG/5ML LQCR 5ml po q12hr PRN Cough TUSSIONEX PENNKINETIC ER 10-8 MG/5ML LQCR HYDROCOD POLST- CHLORPHEN POLST Inactive PROMETHAZINE HCL 25 MG TABS 1 four times a day as needed for nausea/vomiting PROMETHAZINE HCL 25 MG TABS 092241 PROMETHAZINE HCL Inactive PREDNISONE 20 MG TAB 1 tablet twice daily for 2 days, then 1 tablet once daily for 2 days PREDNISONE 20 MG TAB 434781 PREDNISONE Inactive WARFARIN SODIUM 4 MG TABS 1 tab every evening WARFARIN SODIUM 4 MG TABS 179810 WARFARIN SODIUM Inactive LOMOTIL 2.5-0.025 MG TAB 1 to 2 four times a day as needed for diarrhea 10/13 LOMOTIL 2.5-0.025 MG TAB 1295272 DIPHENOXYLATE-ATROPINE Inactive IBUPROFEN 800 MG TABS 1 tab every 8 hours as needed IBUPROFEN 800 MG TABS 250106 IBUPROFEN Inactive PREDNISONE 20 MG TAB 2 tablets today, then 1 tablet days 2 through 4 PREDNISONE 20 MG TAB 848434 PREDNISONE Inactive AZITHROMYCIN 250 MG TABS 2 po qd x 1 day, then 1 po qd x 4 days AZITHROMYCIN 250 MG TABS 3615747 AZITHROMYCIN Inactive AZITHROMYCIN 250 MG TABS 2 po qd x 1 day, then 1 po qd x 4 days AZITHROMYCIN 250 MG TABS 2115678 AZITHROMYCIN Inactive NYSTATIN-TRIAMCINOLONE 657802-2.1 UNIT/GM-% CREA Apply to area BID NYSTATIN-TRIAMCINOLONE 004457-7.1 UNIT/GM-% CREA 3082095 NYSTATIN-TRIAMCINOLONE Inactive AZITHROMYCIN 250 MG TABS 2 po qd x 1 day, then 1 po qd x 4 days AZITHROMYCIN 250 MG TABS 3898682 AZITHROMYCIN Inactive AZITHROMYCIN 250 MG TABS 2 po qd x 1 day, then 1 po qd x 4 days AZITHROMYCIN 250 MG TABS 6732686 AZITHROMYCIN Inactive AZITHROMYCIN 250 MG TABS 2 po qd x 1 day, then 1 po qd x 4 days AZITHROMYCIN 250 MG TABS 3177417 AZITHROMYCIN Inactive Advance Directives Directive Description Start [...] Panel - Chemistry sodium, serum 141 mmol/L 627-938 0104/06/28 carbon dioxide, venous blood 31.0 mmol/L 21.0-32.0 [...] Negative Encounters Code Encounter Date Provider Facility CPT-55006 Level 3 Est. Patient 15:14:31 SCRUM PROJECT MANAGER Piotr Daley DO [facility] CPT-03209 Level 3 Est. Patient 09:20:13 SCRUM PROJECT MANAGER Piotr Daley [facility] CPT-56633 Level 3 Est. Patient 09:49:40 CDT Piotr Daley [facility] CPT-45532 Level 3 Est. Patient 16:28:11 CDT Piotr Daley [facility] CPT-50968 Level 3 Est. Patient 12:41:58 SCRUM PROJECT MANAGER Piotr Daley [facility] CPT-83928 Level 3 Est. Patient 09:21:24 CDT Piotr Daley [facility] CPT-94305 Level 3 Est. Patient 09:21:11 CDT Piotr Daley [facility] CPT-92636 Level 3 Est. Patient 11:16:29 SCRUM PROJECT MANAGER Piotr Daley [facility] CPT-04984 Level 3 Est. Patient 18:40:19 SCRUM PROJECT MANAGER Piotr Daley [facility] CPT-48935 Level 3 Est. Patient 19:30:50 CDT Piotr Daley [facility] CPT-10654 Level 3 Est. Patient 22:06:44 CDT Katrina Rinaldi MD [facility] CPT-58665 Level 3 Est. Patient 14:20:00 CDT Piotr Daley [facility] CPT-09655 Level 3 Est. Patient 14:15:22 SCRUM PROJECT MANAGER Piotr Daley [facility] CPT-83797 Level 3 Est. Patient 20:19:57 SCRUM PROJECT MANAGER Piotr Daley [facility] CPT-01492 Level 3 Est. Patient 16:44:32 CDT Piotr Daley [facility] CPT-93835 Level 3 Est. Patient 08:48:46 SCRUM PROJECT MANAGER Piotr Daley [facility] CPT-57673 Level 3 Est. Patient 21:01:21 CDT Piotr Daley [facility] Procedures Code Procedure Name Date Entry Date Standard Description CPT-39543 PT/INR - LAB USE ONLY 15:48:49 CDT CPT-05239 Venipuncture Draw Fee 15:48:49 CDT CPT-44821 Venipuncture Draw Fee 11:31:59 CDT CPT-09047 PT/INR - LAB USE ONLY 11:31:59 CDT CPT-87080 Venipuncture Draw Fee 13:29:15 CDT CPT-84644 Thoracolumbar AP/Lat 15:19:19 SCRUM PROJECT MANAGER CPT-G0438 Initial Annual Wellness Exam 12:18:54 SCRUM PROJECT MANAGER CPT-98238 Knee 3V 09:57:38 CDT CPT-OV Office Visit 15:45:01 SCRUM PROJECT MANAGER CPT-93035 Abd compl w upright 17:10:25 CDT
--- OUTSIDE RECORDS SUMMARY | 2018-07-18 10:01 | XMS REPORT | Clinical Summary ---
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 Personal history of malignant neoplasm of [...] neuropathy Insect bite 919.4 Active Nella Harris GENERAL OFFICE WORKER Insect bite, nonvenomous, of other, multiple, and unspecified sites, without mention of infection Pruritus 698.9 Active Nella Harris GENERAL OFFICE WORKER Unspecified pruritic disorder FLANK PAIN, RIGHT ICD-789.09 [...] mouth BID x10 days 10/01 DOXYCYCLINE HYCLATE 96528472663 No Longer Active Nella Harris APRN Active WARFARIN SODIUM 5 MG TABS 1 tablet daily M-S, 1/2 tab on Heart WARFARIN SODIUM 24093360683 Active Catalina Freitas Active PROAIR HFA 108 (90 BASE) MCG/ACT AERS 1-2 puffs four times a day as needed ALBUTEROL SULFATE 14891037553 Active Matthew Rangel MD Active PREDNISONE 20 MG TAB 2 tabs daily for 3 days, 1 tab daily for 3 days, 1/2 tab daily for 2 days PREDNISONE 19286050652 No Longer Active Matthew Rangel MD Active TRAMADOL HCL 50 MG TABS 1 po tid with ES Tylenol TRAMADOL HCL 35716102989 No Longer Active Matthew Rangel MD Active GABAPENTIN 300 MG CAPS 1 po q hs for nerve pain GABAPENTIN 11543842092 No Longer Active Matthew Rangel MD Active PREDNISONE 20 MG TAB 2 tablets today, then 1 tablet days 2 through 4 PREDNISONE 74668734298 No Longer Active Piotr Daley DO Active AZITHROMYCIN 250 MG TABS 2 po qd x 1 day, then 1 po qd x 4 days AZITHROMYCIN 21737077424 No Longer Active Piotr Daley DO Active IBUPROFEN 800 MG TABS 1 tab every 8 hours as needed IBUPROFEN 61452774715 No Longer Active Piotr Daley DO Active LOMOTIL 2.5-0.025 MG TAB 1 to 2 four times a day as needed for diarrhea 10/13 DIPHENOXYLATE-ATROPINE 11270197833 No Longer Active Piotr Daley DO Active WARFARIN SODIUM 4 MG TABS 1 tab every evening WARFARIN SODIUM 23347194529 No Longer Active Piotr Daley DO Active PREDNISONE 20 MG TAB 1 tablet twice daily for 2 days, then 1 tablet once daily for 2 days PREDNISONE 87055386431 No Longer Active Piotr Daley DO Active PROMETHAZINE HCL 25 MG TABS 1 four times a day as needed for nausea/vomiting PROMETHAZINE HCL 63660257424 No Longer Active Piotr Daley DO Active TUSSIONEX PENNKINETIC ER 10-8 MG/5ML LQCR 5ml po q12hr PRN Cough HYDROCOD POLST-CHLORPHEN POLST 24137283147 No Longer Active Piotr Daley DO Active AZITHROMYCIN 250 MG TABS 2 po qd x 1 day, then 1 po qd x 4 days AZITHROMYCIN 72761959001 No Longer Active Piotr Daley DO Active AZITHROMYCIN 250 MG TABS 2 po qd x 1 day, then 1 po qd x 4 days AZITHROMYCIN 03467853244 No Longer Active Piotr Daley DO Active LISINOPRIL-HYDROCHLOROTHIAZIDE 10-12.5 MG TABS 1 tab by mouth daily LISINOPRIL-HYDROCHLOROTHIAZIDE 31561230977 Active Catalina Freitas Active LISINOPRIL 10 MG TABS 1/2-1 tab po every other day LISINOPRIL 13160490365 No Longer Active Piotr W Edi DO Active VENTOLIN HFA 108 (90 BASE) MCG/ACT AERS 2 puffs four times a day PRN cough ALBUTEROL SULFATE 31959196552 No Longer Active Piotr Daley DO Active NYSTATIN-TRIAMCINOLONE 509221-1.1 UNIT/GM-% CREA Apply to area BID NYSTATIN-TRIAMCINOLONE 23619780756 No Longer Active Alena Oswaldum MEMBERSHIP ASSISTANT Active PHISOHEX 3 % LIQD Use Directed HEXACHLOROPHENE 97801421835 No Longer Active Sandra Cotuit Active AZITHROMYCIN 250 MG TABS 2 po qd x 1 day, then 1 po qd x 4 days AZITHROMYCIN 71696504604 No Longer Active Katrina Rinaldi MD PhD Active AZITHROMYCIN 250 MG TABS 2 po qd x 1 day, then 1 po qd x 4 days AZITHROMYCIN 90004702986 No Longer Active Piotr Daley DO Active AZITHROMYCIN 500 MG SOLR 1 po q day AZITHROMYCIN 79506486832 No Longer Active Piotr Daley DO Active NYSTATIN-TRIAMCINOLONE 607143-0.1 UNIT/GM-% CREA apply bid 08/19 NYSTATIN-TRIAMCINOLONE 72730111657 No Longer Active Piotr Daley DO Active IBUPROFEN 800 MG TABS 1 po q 8 hours prn pain sparinly IBUPROFEN 37856277300 No Longer Active Piotr Daley DO Active VITAMIN D3 5000 UNIT CAPS 1 po daily CHOLECALCIFEROL 43547996563 Active Piotr Daley DO Active IBUPROFEN 800 MG TABS 1 po q 8 hours prn pain sparinly IBUPROFEN 800 MG TABS 877084 IBUPROFEN Inactive NYSTATIN-TRIAMCINOLONE 543701-6.1 UNIT/GM-% CREA apply bid 08/19 NYSTATIN-TRIAMCINOLONE 987883-7.1 UNIT/GM-% CREA 8326904 NYSTATIN- TRIAMCINOLONE Inactive AZITHROMYCIN 500 MG SOLR 1 po q day AZITHROMYCIN 500 MG SOLR 21445600748 AZITHROMYCIN Inactive VENTOLIN HFA 108 (90 BASE) MCG/ACT AERS 2 puffs four times a day PRN cough VENTOLIN HFA 108 (90 BASE) MCG/ACT AERS ALBUTEROL SULFATE Inactive LISINOPRIL 10 MG TABS 1/2-1 tab po every other day LISINOPRIL 10 MG TABS 439339 LISINOPRIL Inactive TUSSIONEX PENNKINETIC ER 10-8 MG/5ML LQCR 5ml po q12hr PRN Cough TUSSIONEX PENNKINETIC ER 10-8 MG/5ML LQCR HYDROCOD POLST- CHLORPHEN POLST Inactive PROMETHAZINE HCL 25 MG TABS 1 four times a day as needed for nausea/vomiting PROMETHAZINE HCL 25 MG TABS 894898 PROMETHAZINE HCL Inactive PREDNISONE 20 MG TAB 1 tablet twice daily for 2 days, then 1 tablet once daily for 2 days PREDNISONE 20 MG TAB 389891 PREDNISONE Inactive WARFARIN SODIUM 4 MG TABS 1 tab every evening WARFARIN SODIUM 4 MG TABS 730393 WARFARIN SODIUM Inactive LOMOTIL 2.5-0.025 MG TAB 1 to 2 four times a day as needed for diarrhea 10/13 LOMOTIL 2.5-0.025 MG TAB 3506809 DIPHENOXYLATE-ATROPINE Inactive IBUPROFEN 800 MG TABS 1 tab every 8 hours as needed IBUPROFEN 800 MG TABS 850176 IBUPROFEN Inactive PREDNISONE 20 MG TAB 2 tablets today, then 1 tablet days 2 through 4 PREDNISONE 20 MG TAB 399003 PREDNISONE Inactive GABAPENTIN 300 MG CAPS 1 po q hs for nerve pain GABAPENTIN 300 MG CAPS 329724 GABAPENTIN Inactive TRAMADOL HCL 50 MG TABS 1 po tid with ES Tylenol TRAMADOL HCL 50 MG TABS 458335 TRAMADOL HCL Inactive AZITHROMYCIN 250 MG TABS 2 po qd x 1 day, then 1 po qd x 4 days AZITHROMYCIN 250 MG TABS 9062986 AZITHROMYCIN Inactive AZITHROMYCIN 250 MG TABS 2 po qd x 1 day, then 1 po qd x 4 days AZITHROMYCIN 250 MG TABS 9233827 AZITHROMYCIN Inactive NYSTATIN-TRIAMCINOLONE 519879-3.1 UNIT/GM-% CREA Apply to area BID NYSTATIN-TRIAMCINOLONE 411377-3.1 UNIT/GM-% CREA 8781640 NYSTATIN-TRIAMCINOLONE Inactive AZITHROMYCIN 250 MG TABS 2 po qd x 1 day, then 1 po qd x 4 days AZITHROMYCIN 250 MG TABS 7256344 AZITHROMYCIN Inactive AZITHROMYCIN 250 MG TABS 2 po qd x 1 day, then 1 po qd x 4 days AZITHROMYCIN 250 MG TABS 2685993 AZITHROMYCIN Inactive AZITHROMYCIN 250 MG TABS 2 po qd x 1 day, then 1 po qd x 4 days AZITHROMYCIN 250 MG TABS 8520235 AZITHROMYCIN Inactive PREDNISONE 20 MG TAB 2 tabs daily for 3 days, 1 tab daily for 3 days, 1/2 tab daily for 2 days PREDNISONE 20 MG TAB 753462 PREDNISONE Inactive DOXYCYCLINE HYCLATE 100 MG CAP 1 cap by mouth BID x10 days 10/01 DOXYCYCLINE HYCLATE 100 MG CAP 2623492 DOXYCYCLINE HYCLATE Inactive Advance Directives Directive Description [...] Panel - Chemistry sodium, serum 141 mmol/L 213-684 8657/01/24 carbon dioxide, venous blood 30.7 mmol/L 21.0-32.0 blood glucose 90 mg/dL 65-110 calcium, serum 8.5 mg/dL 8.5-10.1 urea nitrogen, blood 16 mg/dL 7-18 creatinine, serum 1.09 mg/dL 0.55-1.30 potassium, serum 4.3 mmol/L 3.5-5.2 chloride, serum 103 mmol/L 98-107 Lab Report: CBC-QUEST - Hematology red blood cell distribution width 14.0 % 11.0-15.0 mean platelet volume 8.6 fL 7.5-12.5 platelet count 172 THOUSAND/UL 10*3/mm3 438-503 4862/04/12 erythrocyte (RBC) count 5.13 MILLION/UL 10*6/mm3 4.20-5.80 mean corpuscular volume, RBC 83.9 fL 80.0-100.0 mean corpuscular hemoglobin, RBC 28.1 pg 27.0-33.0 hemoglobin, blood 14.4 g/dL 13.2-17.1 hematocrit, blood 43.0 % 38.5-50.0 leukocyte count, blood 5.4 THOUSAND/UL 10*3/mm3 3.8-10.8 mean corpuscular hemoglobin concentration, RBC 33.5 G/DL % 32.0- 36.0 Lab Report: Creatinine - Chemistry creatinine, serum [...] (patient) 23.8 SECS s 11.1-13.4 Lab Report: Prothrombin Time Hemochron - Coagulation prothrombin time (patient) 33.0 SECS s 18.9-24.9 Encounters Code Encounter Date Provider Facility CPT-16126 Level 3 Est. Patient 17:10:19 CDT Nella Harris APRN [facility] CPT-95262 Level 3 Est. Patient 10:48:17 SEPTIC TANK SETTER Matthew Rangel MD [facility] CPT-18975 Level 4 Est. Patient 17:15:07 SEPTIC TANK SETTER Piotr Wilson Edi [facility] CPT-62696 Level 3 Est. Patient 12:46:13 SEPTIC TANK SETTER Piotr Wilson Edi [facility] CPT-78946 Level 3 Est. Patient 15:14:31 SEPTIC TANK SETTER Piotr Daley [facility] CPT-31071 Level 3 Est. Patient 09:20:13 SEPTIC TANK SETTER Piotr Wilson Eid [facility] CPT-78741 Level 3 Est. Patient 09:49:40 CDT Piotr Wilson [facility] CPT-54474 Level 3 Est. Patient 16:28:11 CDT Piotr Daley [facility] CPT-34459 Level 3 Est. Patient 12:41:58 SEPTIC TANK SETTER Piotr Wilson Edi [facility] CPT-95061 Level 3 Est. Patient 09:21:24 CDT Piotr Wilson Edi [facility] CPT-18681 Level 3 Est. Patient 09:21:11 CDT Piotr Wilson [facility] CPT-97431 Level 3 Est. Patient 11:16:29 SEPTIC TANK SETTER Piotr Daley [facility] CPT-90690 Level 3 Est. Patient 18:40:19 SEPTIC TANK SETTER Piotr Daley [facility] CPT-90649 Level 3 Est. Patient 19:30:50 CDT Piotr Wilson [facility] CPT-32111 Level 3 Est. Patient 22:06:44 CDT Katrina Rinaldi MD PhD [facility] CPT-48988 Level 3 Est. Patient 14:20:00 CDT Piotr Daley [facility] CPT-79304 Level 3 Est. Patient 14:15:22 SEPTIC TANK SETTER Piotr Daley [facility] CPT-38386 Level 3 Est. Patient 20:19:57 SEPTIC TANK SETTER Piotr Daley [facility] CPT-64097 Level 3 Est. Patient 16:44:32 CDT Piotr Daley [facility] CPT-77688 Level 3 Est. Patient 08:48:46 SEPTIC TANK SETTER Piotr Daley [facility] CPT-87518 Level 3 Est. Patient 21:01:21 CDT Piotr Wilson [facility] Procedures Code Procedure Name Date Entry Date Standard Description CPT-56352 BMP - LAB USE ONLY 17:19:11 SEPTIC TANK SETTER CPT-68850 PT/INR - LAB USE ONLY 17:19:10 SEPTIC TANK SETTER CPT-35295 Venipuncture Draw Fee 17:19:10 SEPTIC TANK SETTER CPT-72644 PT/INR - LAB USE ONLY 08:12:25 SEPTIC TANK SETTER CPT-06807 Venipuncture Draw Fee 08:12:24 SEPTIC TANK SETTER CPT-85087 Venipuncture Draw Fee 11:31:07 SEPTIC TANK SETTER CPT-57653 TPSA - LAB USE ONLY 11:31:07 SEPTIC TANK SETTER CPT-36657 PT/INR - LAB USE ONLY 11:31:07 SEPTIC TANK SETTER CPT-G0439 [facility] Annual Wellness Exam 09:59:29 SEPTIC TANK SETTER CPT-46087 Creatinine - LAB USE ONLY 14:37:55 SEPTIC TANK SETTER CPT-36087 PT/INR - LAB USE ONLY 14:37:55 SEPTIC TANK SETTER CPT-50681 Venipuncture Draw Fee 14:37:55 SEPTIC TANK SETTER CPT-40692 LS spine comp w obliques - XRAY USE ONLY 12:59:25 SEPTIC TANK SETTER CPT-16598 PT/INR - LAB USE ONLY 13:49:20 CDT CPT-79906 Venipuncture Draw Fee 13:49:19 CDT CPT-56958 PT/INR - LAB USE ONLY 15:48:49 CDT CPT-88336 Venipuncture Draw Fee 15:48:49 CDT CPT-45614 Venipuncture Draw Fee 11:31:59 CDT CPT-84216 PT/INR - LAB USE ONLY 11:31:59 CDT CPT-12159 Venipuncture Draw Fee 13:29:15 CDT CPT-24987 Thoracolumbar AP/Lat 15:19:19 SEPTIC TANK SETTER CPT-G0438 Initial Annual Wellness Exam 12:18:54 SEPTIC TANK SETTER CPT-12292 Knee 3V 09:57:38 CDT CPT-OV Office Visit 15:45:01 SEPTIC TANK SETTER CPT-37758 Abd compl w upright 17:10:25 CDT
--- OUTSIDE RECORDS SUMMARY | 2018-07-18 10:02 | XMS REPORT | Clinical Summary ---
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 Personal history of malignant neoplasm of prostate [...] po q hs for nerve pain GABAPENTIN 25656468103 Active Piotr Daley DO Active WARFARIN SODIUM 5 MG TABS 1 tablet daily WARFARIN SODIUM 48311295146 Active Simi Meyers Active TRAMADOL HCL 50 MG TABS 1 po tid with ES Tylenol TRAMADOL HCL 69552174752 Active Piotr Daley DO Active PREDNISONE 20 MG TAB 2 tablets today, then 1 tablet days 2 through 4 PREDNISONE 01221351499 No Longer Active Piotr Daley DO Active AZITHROMYCIN 250 MG TABS 2 po qd x 1 day, then 1 po qd x 4 days AZITHROMYCIN 49449828229 No Longer Active Piotr Daley DO Active IBUPROFEN 800 MG TABS 1 tab every 8 hours as needed IBUPROFEN 83692777758 No Longer Active Piotr Daley DO Active LOMOTIL 2.5-0.025 MG TAB 1 to 2 four times a day as needed for diarrhea 10/13 DIPHENOXYLATE-ATROPINE 70527328165 No Longer Active Piotr Daley DO Active WARFARIN SODIUM 4 MG TABS 1 tab every evening WARFARIN SODIUM 86768934476 No Longer Active Piotr Daley DO Active PREDNISONE 20 MG TAB 1 tablet twice daily for 2 days, then 1 tablet once daily for 2 days PREDNISONE 97319530216 No Longer Active Piotr Daley DO Active PROMETHAZINE HCL 25 MG TABS 1 four times a day as needed for nausea/vomiting PROMETHAZINE HCL 39328747261 No Longer Active Piotr Daley DO Active TUSSIONEX PENNKINETIC ER 10-8 MG/5ML LQCR 5ml po q12hr PRN Cough HYDROCOD POLST-CHLORPHEN POLST 10228878693 No Longer Active Piotr Daley DO Active AZITHROMYCIN 250 MG TABS 2 po qd x 1 day, then 1 po qd x 4 days AZITHROMYCIN 53835849409 No Longer Active Piotr Daley DO Active AZITHROMYCIN 250 MG TABS 2 po qd x 1 day, then 1 po qd x 4 days AZITHROMYCIN 50025322283 No Longer Active Piotr Daley DO Active LISINOPRIL-HYDROCHLOROTHIAZIDE 10-12.5 MG TABS 1 tab by mouth daily LISINOPRIL-HYDROCHLOROTHIAZIDE 65171192288 Active Hilary Ma MA Active LISINOPRIL 10 MG TABS 1/2-1 tab po every other day LISINOPRIL 57572628785 No Longer Active Piotr Daley DO Active VENTOLIN HFA 108 (90 BASE) MCG/ACT AERS 2 puffs four times a day PRN cough ALBUTEROL SULFATE 99216958923 No Longer Active Piotr Daley DO Active NYSTATIN-TRIAMCINOLONE 478758-2.1 UNIT/GM-% CREA Apply to area BID NYSTATIN-TRIAMCINOLONE 55544102947 No Longer Active Alena Chavira ACADEMIC ASSOCIATE Active PHISOHEX 3 % LIQD Use Directed HEXACHLOROPHENE 28026036950 No Longer Active Sandra [place] Active AZITHROMYCIN 250 MG TABS 2 po qd x 1 day, then 1 po qd x 4 days AZITHROMYCIN 38270697398 No Longer Active Katrina Rinaldi MD PhD Active AZITHROMYCIN 250 MG TABS 2 po qd x 1 day, then 1 po qd x 4 days AZITHROMYCIN 02364892209 No Longer Active Piotr Daley DO Active AZITHROMYCIN 500 MG SOLR 1 po q day AZITHROMYCIN 57136771764 No Longer Active Piotr Daley DO Active NYSTATIN-TRIAMCINOLONE 793407-6.1 UNIT/GM-% CREA apply bid 08/19 NYSTATIN-TRIAMCINOLONE 91191983419 No Longer Active Piotr Daley DO Active IBUPROFEN 800 MG TABS 1 po q 8 hours prn pain sparinly IBUPROFEN 82929704469 No Longer Active Piotr Daley DO Active VITAMIN D3 5000 UNIT CAPS 1 po daily CHOLECALCIFEROL 17846791928 Active Piotr Daley DO Active IBUPROFEN 800 MG TABS 1 po q 8 hours prn pain sparinly IBUPROFEN 800 MG TABS 759605 IBUPROFEN Inactive NYSTATIN-TRIAMCINOLONE 407042-8.1 UNIT/GM-% CREA apply bid 08/19 NYSTATIN-TRIAMCINOLONE 848934-8.1 UNIT/GM-% CREA 8363253 NYSTATIN- TRIAMCINOLONE Inactive AZITHROMYCIN 500 MG SOLR 1 po q day AZITHROMYCIN 500 MG SOLR 81130698169 AZITHROMYCIN Inactive VENTOLIN HFA 108 (90 BASE) MCG/ACT AERS 2 puffs four times a day PRN cough VENTOLIN HFA 108 (90 BASE) MCG/ACT AERS ALBUTEROL SULFATE Inactive LISINOPRIL 10 MG TABS 1/2-1 tab po every other day LISINOPRIL 10 MG TABS 072010 LISINOPRIL Inactive TUSSIONEX PENNKINETIC ER 10-8 MG/5ML LQCR 5ml po q12hr PRN Cough TUSSIONEX PENNKINETIC ER 10-8 MG/5ML LQCR HYDROCOD POLST- CHLORPHEN POLST Inactive PROMETHAZINE HCL 25 MG TABS 1 four times a day as needed for nausea/vomiting PROMETHAZINE HCL 25 MG TABS 947349 PROMETHAZINE HCL Inactive PREDNISONE 20 MG TAB 1 tablet twice daily for 2 days, then 1 tablet once daily for 2 days PREDNISONE 20 MG TAB 461424 PREDNISONE Inactive WARFARIN SODIUM 4 MG TABS 1 tab every evening WARFARIN SODIUM 4 MG TABS 370134 WARFARIN SODIUM Inactive LOMOTIL 2.5-0.025 MG TAB 1 to 2 four times a day as needed for diarrhea 10/13 LOMOTIL 2.5-0.025 MG TAB 2089227 DIPHENOXYLATE-ATROPINE Inactive IBUPROFEN 800 MG TABS 1 tab every 8 hours as needed IBUPROFEN 800 MG TABS 957488 IBUPROFEN Inactive PREDNISONE 20 MG TAB 2 tablets today, then 1 tablet days 2 through 4 PREDNISONE 20 MG TAB 125403 PREDNISONE Inactive AZITHROMYCIN 250 MG TABS 2 po qd x 1 day, then 1 po qd x 4 days AZITHROMYCIN 250 MG TABS 7025611 AZITHROMYCIN Inactive AZITHROMYCIN 250 MG TABS 2 po qd x 1 day, then 1 po qd x 4 days AZITHROMYCIN 250 MG TABS 4063189 AZITHROMYCIN Inactive NYSTATIN-TRIAMCINOLONE 944463-5.1 UNIT/GM-% CREA Apply to area BID NYSTATIN-TRIAMCINOLONE 082389-7.1 UNIT/GM-% CREA 5068350 NYSTATIN-TRIAMCINOLONE Inactive AZITHROMYCIN 250 MG TABS 2 po qd x 1 day, then 1 po qd x 4 days AZITHROMYCIN 250 MG TABS 7940337 AZITHROMYCIN Inactive AZITHROMYCIN 250 MG TABS 2 po qd x 1 day, then 1 po qd x 4 days AZITHROMYCIN 250 MG TABS 6138197 AZITHROMYCIN Inactive AZITHROMYCIN 250 MG TABS 2 po qd x 1 day, then 1 po qd x 4 days AZITHROMYCIN 250 MG TABS 1073200 AZITHROMYCIN Inactive Advance Directives Directive Description Start [...] Panel - Chemistry sodium, serum 141 mmol/L 568-838 8296/06/28 carbon dioxide, venous blood 31.0 mmol/L 21.0-32.0 [...] Negative Encounters Code Encounter Date Provider Facility CPT-19676 Level 4 Est. Patient 17:15:07 CARE ATTENDANT Piotr Daley [facility] CPT-37467 Level 3 Est. Patient 12:46:13 CARE ATTENDANT Piotr Daley [facility] CPT-44192 Level 3 Est. Patient 15:14:31 CARE ATTENDANT Piotr Daley [facility] CPT-96114 Level 3 Est. Patient 09:20:13 CARE ATTENDANT Piotr Katie Edi [facility] CPT-70114 Level 3 Est. Patient 09:49:40 CDT Piotr Katie Edi [facility] CPT-22375 Level 3 Est. Patient 16:28:11 CDT Piotr Katie Edi [facility] CPT-94785 Level 3 Est. Patient 12:41:58 CARE ATTENDANT Piotr Daley [facility] CPT-25531 Level 3 Est. Patient 09:21:[address] [facility] CPT-61403 Level 3 Est. Patient 09:21:11 CDT Piotr Daley [facility] CPT-65689 Level 3 Est. Patient 11:16:29 CARE ATTENDANT Piotr Daley [facility] CPT-90670 Level 3 Est. Patient 18:40:19 CARE ATTENDANT Piotr Daley [facility] CPT-28675 Level 3 Est. Patient 19:30:50 CDT Piotr Daley [facility] CPT-91862 Level 3 Est. Patient 22:06:44 CDT Katrina Rinaldi MD [facility] CPT-32800 Level 3 Est. Patient 14:20:00 CDT Piotr Daley [facility] CPT-66599 Level 3 Est. Patient 14:15:22 CARE ATTENDANT Piotr Daley [facility] CPT-24007 Level 3 Est. Patient 20:19:57 CARE ATTENDANT Piotr Daley [facility] CPT-46050 Level 3 Est. Patient 16:44:32 CDT Piotr Daley [facility] CPT-88307 Level 3 Est. Patient 08:48:46 CARE ATTENDANT Piotr Daley [facility] CPT-19398 Level 3 Est. Patient 21:01:21 CDT Piotr Daley [facility] Procedures Code Procedure Name Date Entry Date Standard Description CPT-48248 Creatinine - LAB USE ONLY 14:37:55 CARE ATTENDANT CPT-71965 PT/INR - LAB USE ONLY 14:37:55 CARE ATTENDANT CPT-68997 Venipuncture Draw Fee 14:37:55 CARE ATTENDANT CPT-55345 LS spine comp w obliques - XRAY USE ONLY 12:59:25 CARE ATTENDANT CPT-53611 PT/INR - LAB USE ONLY 13:49:20 CDT CPT-09444 Venipuncture Draw Fee 13:49:19 CDT CPT-08861 PT/INR - LAB USE ONLY 15:48:49 CDT CPT-91390 Venipuncture Draw Fee 15:48:49 CDT CPT-63419 Venipuncture Draw Fee 11:31:59 CDT CPT-46518 PT/INR - LAB USE ONLY 11:31:59 CDT CPT-74411 Venipuncture Draw Fee 13:29:15 CDT CPT-77575 Thoracolumbar AP/Lat 15:19:19 CARE ATTENDANT CPT-G0438 Initial Annual Wellness Exam 12:18:54 CARE ATTENDANT CPT-91938 Knee 3V 09:57:38 CDT CPT-OV Office Visit 15:45:01 CARE ATTENDANT CPT-98604 Abd compl w upright 17:10:25 CDT
--- OUTSIDE RECORDS SUMMARY | 2018-07-18 10:02 | XMS REPORT | Clinical Summary ---
Author Author Admin, YONG Organization [facility] Address Unknown Phone Unavailable Allergies, Adverse Reactions, [...] MD PhD BRONCHITIS-ACUTE ICD-466.0 Inactive Piotr Katie Daley DO SCREENING, COLON CANCER ICD-V76.51 Inactive Katrina Rinaldi MD PhD BRONCHITIS-ACUTE ICD-466.0 Inactive Piotr Daley DO Bronchitis-Acute ICD-466.0 Inactive Piotr Katie Daley DO Medication List Medication Instructions Start Date Stop Date Generic Name NDC Status Provider Patient Instruction WARFARIN SODIUM 5 MG TABS 1 tablet daily except for Saturday and 04/09 tablet. WARFARIN SODIUM 45297587859 Active Piotr Daley DO Active PREDNISONE 20 MG TAB 2 tablets today, then 1 tablet days 2 through 4 PREDNISONE 54897257998 No Longer Active Piotr Daley DO Active AZITHROMYCIN 250 MG TABS 2 po qd x 1 day, then 1 po qd x 4 days AZITHROMYCIN 17942863170 No Longer Active Piotr Daley DO Active IBUPROFEN 800 MG TABS 1 tab every 8 hours as needed IBUPROFEN 59118429597 No Longer Active Piotr W Edi DO Active LOMOTIL 2.5-0.025 MG TAB 1 to 2 four times a day as needed for diarrhea 10/13 DIPHENOXYLATE-ATROPINE 41718671800 No Longer Active Piotr Daley DO Active WARFARIN SODIUM 4 MG TABS 1 tab every evening WARFARIN SODIUM 19150769226 No Longer Active Piotr Daley DO Active PREDNISONE 20 MG TAB 1 tablet twice daily for 2 days, then 1 tablet once daily for 2 days PREDNISONE 38371266737 No Longer Active Piotr Daley DO Active PROMETHAZINE HCL 25 MG TABS 1 four times a day as needed for nausea/vomiting PROMETHAZINE HCL 68493006151 No Longer Active Piotr Daley DO Active TUSSIONEX PENNKINETIC ER 10-8 MG/5ML LQCR 5ml po q12hr PRN Cough HYDROCOD POLST-CHLORPHEN POLST 41430813046 No Longer Active Piotr Daley DO Active AZITHROMYCIN 250 MG TABS 2 po qd x 1 day, then 1 po qd x 4 days AZITHROMYCIN 10247489219 No Longer Active Piotr Daley DO Active AZITHROMYCIN 250 MG TABS 2 po qd x 1 day, then 1 po qd x 4 days AZITHROMYCIN 73463357476 No Longer Active Piotr Daley DO Active LISINOPRIL-HYDROCHLOROTHIAZIDE 10-12.5 MG TABS 1 tab by mouth daily LISINOPRIL-HYDROCHLOROTHIAZIDE 27457890975 Active Piotr Daley DO Active LISINOPRIL 10 MG TABS 1/2-1 tab po every other day LISINOPRIL 66541387203 No Longer Active Piotr Daley DO Active VENTOLIN HFA 108 (90 BASE) MCG/ACT AERS 2 puffs four times a day PRN cough ALBUTEROL SULFATE 18501848501 No Longer Active Piotr Daley DO Active NYSTATIN-TRIAMCINOLONE 367827-1.1 UNIT/GM-% CREA Apply to area BID NYSTATIN-TRIAMCINOLONE 21345682277 No Longer Active Alena D Fan GLASS VIAL FILLER Active PHISOHEX 3 % LIQD Use Directed HEXACHLOROPHENE 36883761214 No Longer Active Sandra Bozman Active AZITHROMYCIN 250 MG TABS 2 po qd x 1 day, then 1 po qd x 4 days AZITHROMYCIN 90307223675 No Longer Active Katrina Rinaldi MD PhD Active AZITHROMYCIN 250 MG TABS 2 po qd x 1 day, then 1 po qd x 4 days AZITHROMYCIN 13976523635 No Longer Active Piotr Daley DO Active AZITHROMYCIN 500 MG SOLR 1 po q day AZITHROMYCIN 10512724455 No Longer Active Piotr Daley DO Active NYSTATIN-TRIAMCINOLONE 959803-0.1 UNIT/GM-% CREA apply bid 08/19 NYSTATIN-TRIAMCINOLONE 89986998614 No Longer Active Piotr Daley DO Active IBUPROFEN 800 MG TABS 1 po q 8 hours prn pain sparinly IBUPROFEN 53432216555 No Longer Active Piotr Daley DO Active VITAMIN D3 5000 UNIT CAPS 1 po daily CHOLECALCIFEROL 26043180088 Active Piotr Daley DO Active IBUPROFEN 800 MG TABS 1 po q 8 hours prn pain sparinly IBUPROFEN 800 MG TABS 379976 IBUPROFEN Inactive NYSTATIN-TRIAMCINOLONE 941705-2.1 UNIT/GM-% CREA apply bid 08/19 NYSTATIN-TRIAMCINOLONE 466614-9.1 UNIT/GM-% CREA 1150039 NYSTATIN- TRIAMCINOLONE Inactive AZITHROMYCIN 500 MG SOLR 1 po q day AZITHROMYCIN 500 MG SOLR 741491 AZITHROMYCIN Inactive VENTOLIN HFA 108 (90 BASE) MCG/ACT AERS 2 puffs four times a day PRN cough VENTOLIN HFA 108 (90 BASE) MCG/ACT AERS ALBUTEROL SULFATE Inactive LISINOPRIL 10 MG TABS 1/2-1 tab po every other day LISINOPRIL 10 MG TABS 623091 LISINOPRIL Inactive TUSSIONEX PENNKINETIC ER 10-8 MG/5ML LQCR 5ml po q12hr PRN Cough TUSSIONEX PENNKINETIC ER 10-8 MG/5ML LQCR HYDROCOD POLST- CHLORPHEN POLST Inactive PROMETHAZINE HCL 25 MG TABS 1 four times a day as needed for nausea/vomiting PROMETHAZINE HCL 25 MG TABS 028319 PROMETHAZINE HCL Inactive PREDNISONE 20 MG TAB 1 tablet twice daily for 2 days, then 1 tablet once daily for 2 days PREDNISONE 20 MG TAB 603578 PREDNISONE Inactive WARFARIN SODIUM 4 MG TABS 1 tab every evening WARFARIN SODIUM 4 MG TABS 605152 WARFARIN SODIUM Inactive LOMOTIL 2.5-0.025 MG TAB 1 to 2 four times a day as needed for diarrhea 10/13 LOMOTIL 2.5-0.025 MG TAB 9735595 DIPHENOXYLATE-ATROPINE Inactive IBUPROFEN 800 MG TABS 1 tab every 8 hours as needed IBUPROFEN 800 MG TABS 858152 IBUPROFEN Inactive PREDNISONE 20 MG TAB 2 tablets today, then 1 tablet days 2 through 4 PREDNISONE 20 MG TAB 105851 PREDNISONE Inactive AZITHROMYCIN 250 MG TABS 2 po qd x 1 day, then 1 po qd x 4 days AZITHROMYCIN 250 MG TABS 9979375 AZITHROMYCIN Inactive AZITHROMYCIN 250 MG TABS 2 po qd x 1 day, then 1 po qd x 4 days AZITHROMYCIN 250 MG TABS 2485453 AZITHROMYCIN Inactive NYSTATIN-TRIAMCINOLONE 820649-0.1 UNIT/GM-% CREA Apply to area BID NYSTATIN-TRIAMCINOLONE 945058-3.1 UNIT/GM-% CREA 4904237 NYSTATIN-TRIAMCINOLONE Inactive AZITHROMYCIN 250 MG TABS 2 po qd x 1 day, then 1 po qd x 4 days AZITHROMYCIN 250 MG TABS 2571553 AZITHROMYCIN Inactive AZITHROMYCIN 250 MG TABS 2 po qd x 1 day, then 1 po qd x 4 days AZITHROMYCIN 250 MG TABS 2756303 AZITHROMYCIN Inactive AZITHROMYCIN 250 MG TABS 2 po qd x 1 day, then 1 po qd x 4 days AZITHROMYCIN 250 MG TABS 4880687 AZITHROMYCIN Inactive Vital Signs Date Name Value [...] ... - Chemistry sodium, serum 142 mmol/L 150-553 2114/12/01 potassium, serum 4.7 mmol/L 3.5-5.2 chloride, serum [...] 142-424 Encounters Code Encounter Date Provider Facility CPT-66390 Level 3 Est. Patient 09:49:40 CDT Piotr Daley [facility] CPT-09543 Level 3 Est. Patient 16:28:11 CDT Piotr Daley [facility] CPT-24394 Level 3 Est. Patient 12:41:58 SURGICAL PATHOLOGIST Piotr Daley [facility] CPT-34331 Level 3 Est. Patient 09:21:24 CDT Piotr Daley [facility] CPT-63954 Level 3 Est. Patient 09:21:11 CDT Piotr Daley [facility] CPT-60929 Level 3 Est. Patient 11:16:29 SURGICAL PATHOLOGIST Piotr Daley [facility] CPT-88799 Level 3 Est. Patient 18:40:19 SURGICAL PATHOLOGIST Piotr Daley [facility] CPT-85506 Level 3 Est. Patient 19:30:50 CDT Piotr Daley [facility] CPT-94879 Level 3 Est. Patient 22:06:44 CDT Katrina Rinaldi MD [facility] CPT-63723 Level 3 Est. Patient 14:20:00 CDT Piotr Daley [facility] CPT-80242 Level 3 Est. Patient 14:15:22 SURGICAL PATHOLOGIST Piotr Daley [facility] CPT-45833 Level 3 Est. Patient 20:19:57 SURGICAL PATHOLOGIST Piotr Daley [facility] CPT-84533 Level 3 Est. Patient 16:44:32 CDT Piotr Daley [facility] CPT-40496 Level 3 Est. Patient 08:48:46 SURGICAL PATHOLOGIST Piotr Daley [facility] CPT-12475 Level 3 Est. Patient 21:01:21 CDT Piotr Daley [facility] Procedures Code Procedure Name Date Entry Date Standard Description CPT-14723 Knee 3V 09:57:38 CDT CPT-OV Office Visit 15:45:01 SURGICAL PATHOLOGIST CPT-39929 Abd compl w upright 17:10:25 CDT
--- OUTSIDE RECORDS SUMMARY | 2018-07-18 10:03 | XMS REPORT | Clinical Summary ---
Author Author Admin, E Organization [facility] Address Unknown Phone Unavailable Allergies, Adverse Reactions, [...] Coronary atherosclerosis of unspecified type of vessel, [place] or graft Back pain, thoracic region, [...] po tid with ES Tylenol TRAMADOL HCL 29771782854 Active Piotr Daley DO Active WARFARIN SODIUM 5 MG TABS 1 tablet daily except for Saturday and Sat 1/2 tablet. WARFARIN SODIUM 37403478270 Active Hilary Ma MA Active PREDNISONE 20 MG TAB 2 tablets today, then 1 tablet days 2 through 4 PREDNISONE 90126235888 No Longer Active Piotr Daley DO Active AZITHROMYCIN 250 MG TABS 2 po qd x 1 day, then 1 po qd x 4 days AZITHROMYCIN 31304318426 No Longer Active Piotr Daley DO Active IBUPROFEN 800 MG TABS 1 tab every 8 hours as needed IBUPROFEN 59730897439 No Longer Active Piotr Daley DO Active LOMOTIL 2.5-0.025 MG TAB 1 to 2 four times a day as needed for diarrhea 10/13 DIPHENOXYLATE-ATROPINE 38962384513 No Longer Active Piotr Daley DO Active WARFARIN SODIUM 4 MG TABS 1 tab every evening WARFARIN SODIUM 40661344184 No Longer Active Piotr Daley DO Active PREDNISONE 20 MG TAB 1 tablet twice daily for 2 days, then 1 tablet once daily for 2 days PREDNISONE 91453412093 No Longer Active Piotr Daley DO Active PROMETHAZINE HCL 25 MG TABS 1 four times a day as needed for nausea/vomiting PROMETHAZINE HCL 03287278304 No Longer Active Piotr Daley DO Active TUSSIONEX PENNKINETIC ER 10-8 MG/5ML LQCR 5ml po q12hr PRN Cough HYDROCOD POLST-CHLORPHEN POLST 85854805985 No Longer Active Piotr Daley DO Active AZITHROMYCIN 250 MG TABS 2 po qd x 1 day, then 1 po qd x 4 days AZITHROMYCIN 52585005097 No Longer Active Piotr Daley DO Active AZITHROMYCIN 250 MG TABS 2 po qd x 1 day, then 1 po qd x 4 days AZITHROMYCIN 82825067592 No Longer Active Piotr Daley DO Active LISINOPRIL-HYDROCHLOROTHIAZIDE 10-12.5 MG TABS 1 tab by mouth daily LISINOPRIL-HYDROCHLOROTHIAZIDE 72842654278 Active Hilary Ma MA Active LISINOPRIL 10 MG TABS 1/2-1 tab po every other day LISINOPRIL 00257280927 No Longer Active Piotr Daley DO Active VENTOLIN HFA 108 (90 BASE) MCG/ACT AERS 2 puffs four times a day PRN cough ALBUTEROL SULFATE 91627053747 No Longer Active Piotr Daley DO Active NYSTATIN-TRIAMCINOLONE 457214-7.1 UNIT/GM-% CREA Apply to area BID NYSTATIN-TRIAMCINOLONE 25895409101 No Longer Active Alena Chavira PRINCIPAL ANDROID DEVELOPER Active PHISOHEX 3 % LIQD Use Directed HEXACHLOROPHENE 25175057869 No Longer Active Sandra [place] Active AZITHROMYCIN 250 MG TABS 2 po qd x 1 day, then 1 po qd x 4 days AZITHROMYCIN 51582207600 No Longer Active Katrina Rinaldi MD PhD Active AZITHROMYCIN 250 MG TABS 2 po qd x 1 day, then 1 po qd x 4 days AZITHROMYCIN 72632389422 No Longer Active Piotr Daley DO Active AZITHROMYCIN 500 MG SOLR 1 po q day AZITHROMYCIN 05169230295 No Longer Active Piotr Daley DO Active NYSTATIN-TRIAMCINOLONE 179391-4.1 UNIT/GM-% CREA apply bid 08/19 NYSTATIN-TRIAMCINOLONE 88993323481 No Longer Active Piotr Daley DO Active IBUPROFEN 800 MG TABS 1 po q 8 hours prn pain sparinly IBUPROFEN 65239572319 No Longer Active Piotr Daley DO Active VITAMIN D3 5000 UNIT CAPS 1 po daily CHOLECALCIFEROL 28270066282 Active Piotr Daley DO Active IBUPROFEN 800 MG TABS 1 po q 8 hours prn pain sparinly IBUPROFEN 800 MG TABS 944495 IBUPROFEN Inactive NYSTATIN-TRIAMCINOLONE 459396-7.1 UNIT/GM-% CREA apply bid 08/19 NYSTATIN-TRIAMCINOLONE 624284-1.1 UNIT/GM-% CREA 7387592 NYSTATIN- TRIAMCINOLONE Inactive AZITHROMYCIN 500 MG SOLR 1 po q day AZITHROMYCIN 500 MG SOLR 26552231604 AZITHROMYCIN Inactive VENTOLIN HFA 108 (90 BASE) MCG/ACT AERS 2 puffs four times a day PRN cough VENTOLIN HFA 108 (90 BASE) MCG/ACT AERS ALBUTEROL SULFATE Inactive LISINOPRIL 10 MG TABS 1/2-1 tab po every other day LISINOPRIL 10 MG TABS 760414 LISINOPRIL Inactive TUSSIONEX PENNKINETIC ER 10-8 MG/5ML LQCR 5ml po q12hr PRN Cough TUSSIONEX PENNKINETIC ER 10-8 MG/5ML LQCR HYDROCOD POLST- CHLORPHEN POLST Inactive PROMETHAZINE HCL 25 MG TABS 1 four times a day as needed for nausea/vomiting PROMETHAZINE HCL 25 MG TABS 870804 PROMETHAZINE HCL Inactive PREDNISONE 20 MG TAB 1 tablet twice daily for 2 days, then 1 tablet once daily for 2 days PREDNISONE 20 MG TAB 658628 PREDNISONE Inactive WARFARIN SODIUM 4 MG TABS 1 tab every evening WARFARIN SODIUM 4 MG TABS 465503 WARFARIN SODIUM Inactive LOMOTIL 2.5-0.025 MG TAB 1 to 2 four times a day as needed for diarrhea 10/13 LOMOTIL 2.5-0.025 MG TAB 5109559 DIPHENOXYLATE-ATROPINE Inactive IBUPROFEN 800 MG TABS 1 tab every 8 hours as needed IBUPROFEN 800 MG TABS 800126 IBUPROFEN Inactive PREDNISONE 20 MG TAB 2 tablets today, then 1 tablet days 2 through 4 PREDNISONE 20 MG TAB 375941 PREDNISONE Inactive AZITHROMYCIN 250 MG TABS 2 po qd x 1 day, then 1 po qd x 4 days AZITHROMYCIN 250 MG TABS 3548001 AZITHROMYCIN Inactive AZITHROMYCIN 250 MG TABS 2 po qd x 1 day, then 1 po qd x 4 days AZITHROMYCIN 250 MG TABS 1286459 AZITHROMYCIN Inactive NYSTATIN-TRIAMCINOLONE 959755-0.1 UNIT/GM-% CREA Apply to area BID NYSTATIN-TRIAMCINOLONE 945755-4.1 UNIT/GM-% CREA 3275489 NYSTATIN-TRIAMCINOLONE Inactive AZITHROMYCIN 250 MG TABS 2 po qd x 1 day, then 1 po qd x 4 days AZITHROMYCIN 250 MG TABS 5265459 AZITHROMYCIN Inactive AZITHROMYCIN 250 MG TABS 2 po qd x 1 day, then 1 po qd x 4 days AZITHROMYCIN 250 MG TABS 2768852 AZITHROMYCIN Inactive AZITHROMYCIN 250 MG TABS 2 po qd x 1 day, then 1 po qd x 4 days AZITHROMYCIN 250 MG TABS 5481295 AZITHROMYCIN Inactive Advance Directives Directive Description Start [...] mg/g mg/g{creat} 0-29 sodium, serum 140 mmol/L 372-301 8255/07/17 potassium, serum 4.2 mmol/L 3.5-5.2 chloride, serum [...] 5.0-8.5 Encounters Code Encounter Date Provider Facility CPT-30483 Level 3 Est. Patient 15:14:31 MATERIALS ENGINEERING TECHNICIAN Piotr Wilson [facility] CPT-39403 Level 3 Est. Patient 09:20:13 MATERIALS ENGINEERING TECHNICIAN Piotr Wilson [facility] CPT-66899 Level 3 Est. Patient 09:49:40 CDT Piotr Wilson [facility] CPT-73199 Level 3 Est. Patient 16:28:11 CDT Piotr Wilson [facility] CPT-47875 Level 3 Est. Patient 12:41:58 MATERIALS ENGINEERING TECHNICIAN Piotr Wilson [facility] CPT-45409 Level 3 Est. Patient 09:21:24 CDT Piotr Wilson [facility] CPT-85799 Level 3 Est. Patient 09:21:11 CDT Piotr Wilson [facility] CPT-73853 Level 3 Est. Patient 11:16:29 MATERIALS ENGINEERING TECHNICIAN Piotr Wilson [facility] CPT-32585 Level 3 Est. Patient 18:40:19 MATERIALS ENGINEERING TECHNICIAN Piotr Daley [facility] CPT-17178 Level 3 Est. Patient 19:30:50 CDT Piotr Daley [facility] CPT-37732 Level 3 Est. Patient 22:06:44 CDT Katrina Rinaldi MD [facility] CPT-12475 Level 3 Est. Patient 14:20:00 CDT Piotr Daley [facility] CPT-92787 Level 3 Est. Patient 14:15:22 MATERIALS ENGINEERING TECHNICIAN Piotr Daley [facility] CPT-02059 Level 3 Est. Patient 20:19:57 MATERIALS ENGINEERING TECHNICIAN Piotr Daley [facility] CPT-29379 Level 3 Est. Patient 16:44:32 CDT Piotr Daley [facility] CPT-70449 Level 3 Est. Patient 08:48:46 MATERIALS ENGINEERING TECHNICIAN Piotr Daley [facility] CPT-32402 Level 3 Est. Patient 21:01:21 CDT Piotr Wilson [facility] Procedures Code Procedure Name Date Entry Date Standard Description CPT-91941 Thoracolumbar AP/Lat 15:19:19 MATERIALS ENGINEERING TECHNICIAN CPT-G0438 Initial Annual Wellness Exam 12:18:54 MATERIALS ENGINEERING TECHNICIAN CPT-86477 Knee 3V 09:57:38 CDT CPT-OV Office Visit 15:45:01 MATERIALS ENGINEERING TECHNICIAN CPT-19624 Abd compl w upright 17:10:25 CDT
--- OUTSIDE RECORDS SUMMARY | 2018-07-18 10:04 | XMS REPORT | Clinical Summary ---
Author Author Admin, [employer] Organization [employer] Address Unknown Phone Unavailable [...] neoplasm of prostate V10.46 Active Alina Meyers IN SERVICE EDUCATION TEACHER Personal history of malignant neoplasm of prostate Coronary artery disease 414.00 Active Alina Meyers IN SERVICE EDUCATION TEACHER Coronary atherosclerosis of unspecified type of vessel, pokagon or graft Back pain, thoracic region, left 724.1 Inactive Piotr Daley DO Pain in thoracic spine Thoracic back pain 724.5 Active Piotr Wilson Edi DO Backache, unspecified Back pain lumbar 724.2 Active Piotr Daley DO Lumbago Peripheral neuropathy, lower extremity, left 356.9 Active 02/19 Piotr W Edi DO Unspecified hereditary and idiopathic peripheral neuropathy Insect bite 919.4 Active Nella Harris IN SERVICE EDUCATION TEACHER Insect bite, nonvenomous, of other, multiple, and unspecified sites, without mention of infection Pruritus 698.9 Active Nella Harris IN SERVICE EDUCATION TEACHER Unspecified pruritic disorder FLANK PAIN, RIGHT ICD-789.09 [...] mouth BID x10 days 10/01 DOXYCYCLINE HYCLATE 34058166556 No Longer Active Nella Steven IN SERVICE EDUCATION TEACHER Active WARFARIN SODIUM 5 MG TABS 1 tablet daily M-S, 1/2 tab on Heart WARFARIN SODIUM 60149926245 Active Nella Jennings IN SERVICE EDUCATION TEACHER Active PROAIR HFA 108 (90 BASE) MCG/ACT AERS 1-2 puffs four times a day as needed ALBUTEROL SULFATE 54847288435 Active Matthew Rangel MD Active PREDNISONE 20 MG TAB 2 tabs daily for 3 days, 1 tab daily for 3 days, 1/2 tab daily for 2 days PREDNISONE 20888223646 No Longer Active Matthew Rangel MD Active TRAMADOL HCL 50 MG TABS 1 po tid with ES Tylenol TRAMADOL HCL 68312297880 No Longer Active Matthew Rangel MD Active GABAPENTIN 300 MG CAPS 1 po q hs for nerve pain GABAPENTIN 15379916947 No Longer Active Matthew Rangel MD Active PREDNISONE 20 MG TAB 2 tablets today, then 1 tablet days 2 through 4 PREDNISONE 26275094902 No Longer Active Piotr Daley DO Active AZITHROMYCIN 250 MG TABS 2 po qd x 1 day, then 1 po qd x 4 days AZITHROMYCIN 66140610584 No Longer Active Piotr Daley DO Active IBUPROFEN 800 MG TABS 1 tab every 8 hours as needed IBUPROFEN 46592828933 No Longer Active Piotr Daley DO Active LOMOTIL 2.5-0.025 MG TAB 1 to 2 four times a day as needed for diarrhea 10/13 DIPHENOXYLATE-ATROPINE 43819579497 No Longer Active Piotr Daley DO Active WARFARIN SODIUM 4 MG TABS 1 tab every evening WARFARIN SODIUM 70653433839 No Longer Active Piotr Daley DO Active PREDNISONE 20 MG TAB 1 tablet twice daily for 2 days, then 1 tablet once daily for 2 days PREDNISONE 21618604892 No Longer Active Piotr Daley DO Active PROMETHAZINE HCL 25 MG TABS 1 four times a day as needed for nausea/vomiting PROMETHAZINE HCL 01373528233 No Longer Active Piotr Daley DO Active TUSSIONEX PENNKINETIC ER 10-8 MG/5ML LQCR 5ml po q12hr PRN Cough HYDROCOD POLST-CHLORPHEN POLST 90268808459 No Longer Active Piotr Daley DO Active AZITHROMYCIN 250 MG TABS 2 po qd x 1 day, then 1 po qd x 4 days AZITHROMYCIN 27267943785 No Longer Active Piotr Daley DO Active AZITHROMYCIN 250 MG TABS 2 po qd x 1 day, then 1 po qd x 4 days AZITHROMYCIN 54877724903 No Longer Active Piotr Daley DO Active LISINOPRIL-HYDROCHLOROTHIAZIDE 10-12.5 MG TABS 1 tab by mouth daily LISINOPRIL-HYDROCHLOROTHIAZIDE 92037746451 Active Catalina Freitas Active LISINOPRIL 10 MG TABS 1/2-1 tab po every other day LISINOPRIL 34394181827 No Longer Active Piotr W Edi DO Active VENTOLIN HFA 108 (90 BASE) MCG/ACT AERS 2 puffs four times a day PRN cough ALBUTEROL SULFATE 21781618842 No Longer Active Piotr Daley DO Active NYSTATIN-TRIAMCINOLONE 282342-8.1 UNIT/GM-% CREA Apply to area BID NYSTATIN-TRIAMCINOLONE 35654951651 No Longer Active Alena Oswaldum PROCESS TREATER Active PHISOHEX 3 % LIQD Use Directed HEXACHLOROPHENE 84777234018 No Longer Active Sandra [place] Active AZITHROMYCIN 250 MG TABS 2 po qd x 1 day, then 1 po qd x 4 days AZITHROMYCIN 75889757369 No Longer Active Katrina Rinaldi MD PhD Active AZITHROMYCIN 250 MG TABS 2 po qd x 1 day, then 1 po qd x 4 days AZITHROMYCIN 67569472830 No Longer Active Piotr Daley DO Active AZITHROMYCIN 500 MG SOLR 1 po q day AZITHROMYCIN 26962210726 No Longer Active Piotr Daley DO Active NYSTATIN-TRIAMCINOLONE 924607-0.1 UNIT/GM-% CREA apply bid 08/19 NYSTATIN-TRIAMCINOLONE 15914810408 No Longer Active Piotr Daley DO Active IBUPROFEN 800 MG TABS 1 po q 8 hours prn pain sparinly IBUPROFEN 40938574637 No Longer Active Piotr Daley DO Active VITAMIN D3 5000 UNIT CAPS 1 po daily CHOLECALCIFEROL 88218296500 Active Piotr Daley DO Active IBUPROFEN 800 MG TABS 1 po q 8 hours prn pain sparinly IBUPROFEN 800 MG TABS 876621 IBUPROFEN Inactive NYSTATIN-TRIAMCINOLONE 835898-9.1 UNIT/GM-% CREA apply bid 08/19 NYSTATIN-TRIAMCINOLONE 489711-9.1 UNIT/GM-% CREA 7364845 NYSTATIN- TRIAMCINOLONE Inactive AZITHROMYCIN 500 MG SOLR 1 po q day AZITHROMYCIN 500 MG SOLR 79485014034 AZITHROMYCIN Inactive VENTOLIN HFA 108 (90 BASE) MCG/ACT AERS 2 puffs four times a day PRN cough VENTOLIN HFA 108 (90 BASE) MCG/ACT AERS ALBUTEROL SULFATE Inactive LISINOPRIL 10 MG TABS 1/2-1 tab po every other day LISINOPRIL 10 MG TABS 979959 LISINOPRIL Inactive TUSSIONEX PENNKINETIC ER 10-8 MG/5ML LQCR 5ml po q12hr PRN Cough TUSSIONEX PENNKINETIC ER 10-8 MG/5ML LQCR HYDROCOD POLST- CHLORPHEN POLST Inactive PROMETHAZINE HCL 25 MG TABS 1 four times a day as needed for nausea/vomiting PROMETHAZINE HCL 25 MG TABS 080780 PROMETHAZINE HCL Inactive PREDNISONE 20 MG TAB 1 tablet twice daily for 2 days, then 1 tablet once daily for 2 days PREDNISONE 20 MG TAB 976937 PREDNISONE Inactive WARFARIN SODIUM 4 MG TABS 1 tab every evening WARFARIN SODIUM 4 MG TABS 220526 WARFARIN SODIUM Inactive LOMOTIL 2.5-0.025 MG TAB 1 to 2 four times a day as needed for diarrhea 10/13 LOMOTIL 2.5-0.025 MG TAB 5678948 DIPHENOXYLATE-ATROPINE Inactive IBUPROFEN 800 MG TABS 1 tab every 8 hours as needed IBUPROFEN 800 MG TABS 382091 IBUPROFEN Inactive PREDNISONE 20 MG TAB 2 tablets today, then 1 tablet days 2 through 4 PREDNISONE 20 MG TAB 087333 PREDNISONE Inactive GABAPENTIN 300 MG CAPS 1 po q hs for nerve pain GABAPENTIN 300 MG CAPS 356304 GABAPENTIN Inactive TRAMADOL HCL 50 MG TABS 1 po tid with ES Tylenol TRAMADOL HCL 50 MG TABS 854127 TRAMADOL HCL Inactive AZITHROMYCIN 250 MG TABS 2 po qd x 1 day, then 1 po qd x 4 days AZITHROMYCIN 250 MG TABS 3439776 AZITHROMYCIN Inactive AZITHROMYCIN 250 MG TABS 2 po qd x 1 day, then 1 po qd x 4 days AZITHROMYCIN 250 MG TABS 5196032 AZITHROMYCIN Inactive NYSTATIN-TRIAMCINOLONE 807293-0.1 UNIT/GM-% CREA Apply to area BID NYSTATIN-TRIAMCINOLONE 142445-8.1 UNIT/GM-% CREA 5226511 NYSTATIN-TRIAMCINOLONE Inactive AZITHROMYCIN 250 MG TABS 2 po qd x 1 day, then 1 po qd x 4 days AZITHROMYCIN 250 MG TABS 5080488 AZITHROMYCIN Inactive AZITHROMYCIN 250 MG TABS 2 po qd x 1 day, then 1 po qd x 4 days AZITHROMYCIN 250 MG TABS 2076178 AZITHROMYCIN Inactive AZITHROMYCIN 250 MG TABS 2 po qd x 1 day, then 1 po qd x 4 days AZITHROMYCIN 250 MG TABS 3920981 AZITHROMYCIN Inactive PREDNISONE 20 MG TAB 2 tabs daily for 3 days, 1 tab daily for 3 days, 1/2 tab daily for 2 days PREDNISONE 20 MG TAB 453507 PREDNISONE Inactive DOXYCYCLINE HYCLATE 100 MG CAP 1 cap by mouth BID x10 days 10/01 DOXYCYCLINE HYCLATE 100 MG CAP 1597134 DOXYCYCLINE HYCLATE Inactive Advance Directives Directive Description Start Date LIVING WILL LIVING WILL Vital Signs Date Name Value Unit Range Description blood pressure, diastolic - 8462-4 71 mm[Hg] BP phan blood pressure, systolic - 8480-6 129 mm[Hg] BP sys height E&M - 8302-2 71 [in_us] Bdy height pulse rate E&M - 8867-4 69 /min Heart rate temperature E&M 97.8 [degF] Body temperature weight E&M - 3141-9 229.31 [lb_av] Weight Measured blood pressure, diastolic - [...] Lab Report: Basic Metabolic Panel - Chemistry blood glucose 90 mg/dL 65-110 calcium, serum 8.5 mg/dL 8.5-10.1 urea nitrogen, blood 16 mg/dL 7-18 creatinine, serum 1.09 mg/dL 0.55-1.30 sodium, serum 141 mmol/L 784-759 3341/01/24 potassium, serum 4.3 mmol/L 3.5-5.2 chloride, serum 103 mmol/L 98-107 carbon dioxide, venous blood 30.7 mmol/L 21.0-32.0 Lab Report: CBC-QUEST - Hematology leukocyte count, [...] % 11.0-15.0 platelet count 172 THOUSAND/UL 10*3/mm3 285-279 5717/04/12 mean platelet volume 8.6 fL 7.5-12.5 Lab Report: Creatinine - Chemistry creatinine, serum 1.07 mg/dL 0.55-1.30 Lab Report: Prostatic Specific Ag, Prothrombin Time - Chemistry prostate specific antigen 0.01 ng/mL 0.00-4.00 Lab Report: Prostatic Specific Ag, Prothrombin Time - Coagulation prothrombin time (patient) 25.9 SECS s 11.1-13.4 international normalized ratio (INR) 3.7 1.0-3.5 Lab Report: Prothrombin Time - Coagulation prothrombin time (patient) 23.8 SECS s 11.1-13.4 international normalized ratio (INR) 2.5 1.0-3.5 prothrombin time (patient) 27.8 SECS s 11.1-13.4 international normalized ratio (INR) 4.2 1.0-3.5 prothrombin time (patient) 20.8 SECS s 11.1-13.4 international normalized ratio (INR) 3.0 1.0-3.5 prothrombin time (patient) 22.8 SECS s 11.1-13.4 prothrombin time (patient) 24.3 SECS s 11.1-13.4 prothrombin time (patient) 23.1 SECS s 11.1-13.4 international normalized ratio (INR) 3.0 1.0-3.5 prothrombin time (patient) 19.8 SECS s 11.1-13.4 international normalized ratio (INR) 2.3 1.0-3.5 international normalized ratio (INR) 3.2 1.0-3.5 international normalized ratio (INR) 3.3 1.0-3.5 Lab Report: Prothrombin Time Hemochron - Coagulation prothrombin time (patient) 33.0 SECS s 18.9-24.9 Encounters Code Encounter Date Provider Facility CPT-85997 Level 3 Est. Patient 17:10:19 CDT Nella Harris APRN [facility] CPT-33669 Level 3 Est. Patient 10:48:17 DOOR SERVICEMAN Matthew Rangel MD [facility] CPT-78956 Level 4 Est. Patient 17:15:07 DOOR SERVICEMAN Piotr Daley [facility] CPT-31356 Level 3 Est. Patient 12:46:13 DOOR SERVICEMAN Piotr Daley [facility] CPT-43455 Level 3 Est. Patient 15:14:31 DOOR SERVICEMAN Piotr Daley [facility] CPT-44752 Level 3 Est. Patient 09:20:13 DOOR SERVICEMAN Piotr Daley [facility] CPT-56976 Level 3 Est. Patient 09:49:40 CDT Piotr Daley [facility] CPT-67389 Level 3 Est. Patient 16:28:11 CDT Piotr Daley [facility] CPT-39500 Level 3 Est. Patient 12:41:58 DOOR SERVICEMAN Piotr Daley [facility] CPT-57070 Level 3 Est. Patient 09:21:24 CDT Piotr Daley [facility] CPT-92977 Level 3 Est. Patient 09:21:11 CDT Piotr Daley [facility] CPT-93536 Level 3 Est. Patient 11:16:29 DOOR SERVICEMAN Piotr Daley [facility] CPT-04560 Level 3 Est. Patient 18:40:19 DOOR SERVICEMAN Piotr Daley [facility] CPT-61639 Level 3 Est. Patient 19:30:50 CDT Piotr Daley [facility] CPT-74974 Level 3 Est. Patient 22:06:44 CDT Katrina Rinaldi MD PhD [facility] CPT-96412 Level 3 Est. Patient 14:20:00 CDT Piotr Daley [facility] CPT-30032 Level 3 Est. Patient 14:15:22 DOOR SERVICEMAN Piotr Daley [facility] CPT-30517 Level 3 Est. Patient 20:19:57 DOOR SERVICEMAN Piotr Daley [facility] CPT-12697 Level 3 Est. Patient 16:44:32 CDT Piotr Daley [facility] CPT-82723 Level 3 Est. Patient 08:48:46 DOOR SERVICEMAN Piotr Daley [facility] CPT-13245 Level 3 Est. Patient 21:01:21 CDT Piotr Daley [facility] Procedures Code Procedure Name Date Entry Date Standard Description CPT-68667 BMP - LAB USE ONLY 17:19:11 DOOR SERVICEMAN CPT-63428 PT/INR - LAB USE ONLY 17:19:10 DOOR SERVICEMAN CPT-74317 Venipuncture Draw Fee 17:19:10 DOOR SERVICEMAN CPT-88705 PT/INR - LAB USE ONLY 08:12:25 DOOR SERVICEMAN CPT-69676 Venipuncture Draw Fee 08:12:24 DOOR SERVICEMAN CPT-74951 Venipuncture Draw Fee 11:31:07 DOOR SERVICEMAN CPT-22449 TPSA - LAB USE ONLY 11:31:07 DOOR SERVICEMAN CPT-73040 PT/INR - LAB USE ONLY 11:31:07 DOOR SERVICEMAN CPT-G0439 Subsequent Annual Wellness Exam 09:59:29 DOOR SERVICEMAN CPT-16336 Creatinine - LAB USE ONLY 14:37:55 DOOR SERVICEMAN CPT-08035 PT/INR - LAB USE ONLY 14:37:55 DOOR SERVICEMAN CPT-92354 Venipuncture Draw Fee 14:37:55 DOOR SERVICEMAN CPT-94278 LS spine comp w obliques - XRAY USE ONLY 12:59:25 DOOR SERVICEMAN CPT-62491 PT/INR - LAB USE ONLY 13:49:20 CDT CPT-53072 Venipuncture Draw Fee 13:49:19 CDT CPT-91372 PT/INR - LAB USE ONLY 15:48:49 CDT CPT-33089 Venipuncture Draw Fee 15:48:49 CDT CPT-50151 Venipuncture Draw Fee 11:31:59 CDT CPT-52859 PT/INR - LAB USE ONLY 11:31:59 CDT CPT-71981 Venipuncture Draw Fee 13:29:15 CDT CPT-65386 Thoracolumbar AP/Lat 15:19:19 DOOR SERVICEMAN CPT-G0438 Initial Annual Wellness Exam 12:18:54 DOOR SERVICEMAN CPT-86336 Knee 3V 09:57:38 CDT CPT-OV Office Visit 15:45:01 DOOR SERVICEMAN CPT-76141 Abd compl w upright 17:10:25 CDT
--- OUTSIDE RECORDS SUMMARY | 2018-07-18 10:05 | XMS REPORT | Clinical Summary ---
Author Author Admin, E Organization [employer] Address Unknown Phone Unavailable Allergies, Adverse [...] neoplasm of prostate V10.46 Active Alina Meyers CARTON FOLDER Personal history of malignant neoplasm of prostate Coronary artery disease 414.00 Active Alina Luigi CARTON FOLDER Coronary atherosclerosis of unspecified type of vessel, kake or graft Back pain, thoracic region, left [...] MG TABS 1 tablet daily WARFARIN SODIUM 46548211611 Active Emelyn Goode RPT,RMA Active TRAMADOL HCL 50 MG TABS 1 po tid with ES Tylenol TRAMADOL HCL 04165998588 Active Piotr Daley DO Active PREDNISONE 20 MG TAB 2 tablets today, then 1 tablet days 2 through 4 PREDNISONE 30362914248 No Longer Active Piotr Daley DO Active AZITHROMYCIN 250 MG TABS 2 po qd x 1 day, then 1 po qd x 4 days AZITHROMYCIN 47298098892 No Longer Active Piotr Daley DO Active IBUPROFEN 800 MG TABS 1 tab every 8 hours as needed IBUPROFEN 02328508566 No Longer Active Piotr Daley DO Active LOMOTIL 2.5-0.025 MG TAB 1 to 2 four times a day as needed for diarrhea 10/13 DIPHENOXYLATE-ATROPINE 13342536296 No Longer Active Piotr Daley DO Active WARFARIN SODIUM 4 MG TABS 1 tab every evening WARFARIN SODIUM 46607087424 No Longer Active Piotr Daley DO Active PREDNISONE 20 MG TAB 1 tablet twice daily for 2 days, then 1 tablet once daily for 2 days PREDNISONE 52613292399 No Longer Active Piotr Daley DO Active PROMETHAZINE HCL 25 MG TABS 1 four times a day as needed for nausea/vomiting PROMETHAZINE HCL 07956182340 No Longer Active Piotr Daley DO Active TUSSIONEX PENNKINETIC ER 10-8 MG/5ML LQCR 5ml po q12hr PRN Cough HYDROCOD POLST-CHLORPHEN POLST 96579382553 No Longer Active Piotr W Edi DO Active AZITHROMYCIN 250 MG TABS 2 po qd x 1 day, then 1 po qd x 4 days AZITHROMYCIN 73453225794 No Longer Active Piotr Daley DO Active AZITHROMYCIN 250 MG TABS 2 po qd x 1 day, then 1 po qd x 4 days AZITHROMYCIN 48353870190 No Longer Active Piotr Daley DO Active LISINOPRIL-HYDROCHLOROTHIAZIDE 10-12.5 MG TABS 1 tab by mouth daily LISINOPRIL-HYDROCHLOROTHIAZIDE 08109090978 Active Hilary Ma MA Active LISINOPRIL 10 MG TABS 1/2-1 tab po every other day LISINOPRIL 19464046024 No Longer Active Piotr Daley DO Active VENTOLIN HFA 108 (90 BASE) MCG/ACT AERS 2 puffs four times a day PRN cough ALBUTEROL SULFATE 30052058046 No Longer Active Piotr Daley DO Active NYSTATIN-TRIAMCINOLONE 172868-4.1 UNIT/GM-% CREA Apply to area BID NYSTATIN-TRIAMCINOLONE 45626572664 No Longer Active Alena Oswaldum SSN/SSBN ASSISTANT NAVIGATOR Active PHISOHEX 3 % LIQD Use Directed HEXACHLOROPHENE 81176526977 No Longer Active Sandra [place] Active AZITHROMYCIN 250 MG TABS 2 po qd x 1 day, then 1 po qd x 4 days AZITHROMYCIN 36714261644 No Longer Active Katrina Rinaldi MD PhD Active AZITHROMYCIN 250 MG TABS 2 po qd x 1 day, then 1 po qd x 4 days AZITHROMYCIN 00955169644 No Longer Active Piotr Daley DO Active AZITHROMYCIN 500 MG SOLR 1 po q day AZITHROMYCIN 88415045430 No Longer Active Piotr Daley DO Active NYSTATIN-TRIAMCINOLONE 310705-0.1 UNIT/GM-% CREA apply bid 08/19 NYSTATIN-TRIAMCINOLONE 70831281236 No Longer Active Piotr Daley DO Active IBUPROFEN 800 MG TABS 1 po q 8 hours prn pain sparinly IBUPROFEN 60506062276 No Longer Active Piotr Daley DO Active VITAMIN D3 5000 UNIT CAPS 1 po daily CHOLECALCIFEROL 50965534208 Active Piotr Daley DO Active IBUPROFEN 800 MG TABS 1 po q 8 hours prn pain sparinly IBUPROFEN 800 MG TABS 858151 IBUPROFEN Inactive NYSTATIN-TRIAMCINOLONE 572217-0.1 UNIT/GM-% CREA apply bid 08/19 NYSTATIN-TRIAMCINOLONE 535592-2.1 UNIT/GM-% CREA 3062577 NYSTATIN- TRIAMCINOLONE Inactive AZITHROMYCIN 500 MG SOLR 1 po q day AZITHROMYCIN 500 MG SOLR 48624056050 AZITHROMYCIN Inactive VENTOLIN HFA 108 (90 BASE) MCG/ACT AERS 2 puffs four times a day PRN cough VENTOLIN HFA 108 (90 BASE) MCG/ACT AERS ALBUTEROL SULFATE Inactive LISINOPRIL 10 MG TABS 1/2-1 tab po every other day LISINOPRIL 10 MG TABS 596450 LISINOPRIL Inactive TUSSIONEX PENNKINETIC ER 10-8 MG/5ML LQCR 5ml po q12hr PRN Cough TUSSIONEX PENNKINETIC ER 10-8 MG/5ML LQCR HYDROCOD POLST- CHLORPHEN POLST Inactive PROMETHAZINE HCL 25 MG TABS 1 four times a day as needed for nausea/vomiting PROMETHAZINE HCL 25 MG TABS 465406 PROMETHAZINE HCL Inactive PREDNISONE 20 MG TAB 1 tablet twice daily for 2 days, then 1 tablet once daily for 2 days PREDNISONE 20 MG TAB 422210 PREDNISONE Inactive WARFARIN SODIUM 4 MG TABS 1 tab every evening WARFARIN SODIUM 4 MG TABS 915439 WARFARIN SODIUM Inactive LOMOTIL 2.5-0.025 MG TAB 1 to 2 four times a day as needed for diarrhea 10/13 LOMOTIL 2.5-0.025 MG TAB 8052721 DIPHENOXYLATE-ATROPINE Inactive IBUPROFEN 800 MG TABS 1 tab every 8 hours as needed IBUPROFEN 800 MG TABS 513391 IBUPROFEN Inactive PREDNISONE 20 MG TAB 2 tablets today, then 1 tablet days 2 through 4 PREDNISONE 20 MG TAB 890948 PREDNISONE Inactive AZITHROMYCIN 250 MG TABS 2 po qd x 1 day, then 1 po qd x 4 days AZITHROMYCIN 250 MG TABS 7136063 AZITHROMYCIN Inactive AZITHROMYCIN 250 MG TABS 2 po qd x 1 day, then 1 po qd x 4 days AZITHROMYCIN 250 MG TABS 7886439 AZITHROMYCIN Inactive NYSTATIN-TRIAMCINOLONE 254803-1.1 UNIT/GM-% CREA Apply to area BID NYSTATIN-TRIAMCINOLONE 794862-2.1 UNIT/GM-% CREA 4553578 NYSTATIN-TRIAMCINOLONE Inactive AZITHROMYCIN 250 MG TABS 2 po qd x 1 day, then 1 po qd x 4 days AZITHROMYCIN 250 MG TABS 8730163 AZITHROMYCIN Inactive AZITHROMYCIN 250 MG TABS 2 po qd x 1 day, then 1 po qd x 4 days AZITHROMYCIN 250 MG TABS 6437614 AZITHROMYCIN Inactive AZITHROMYCIN 250 MG TABS 2 po qd x 1 day, then 1 po qd x 4 days AZITHROMYCIN 250 MG TABS 1745095 AZITHROMYCIN Inactive Advance Directives Directive Description Start [...] % 11.6-14.8 platelet count 210 10^3/MM^3 10*3/mm3 349-990 4213/02/09 erythrocyte (RBC) count 5.20 10^6/MM^3 10*6/mm3 4.69-6.13 hemoglobin, blood 14.8 g/dL 13.5-17.5 hematocrit, blood 43.6 % 41.0-53.0 mean corpuscular volume, RBC 84 fL 80-97 mean corpuscular hemoglobin, RBC 28.4 pg 27.0-31.2 Lab Report: Comp. Metabolic Panel - Chemistry chloride, serum 104 mmol/L 98-107 blood glucose 94 mg/dL 65-110 urea nitrogen, blood 15 mg/dL 7-18 creatinine, serum 1.08 mg/dL 0.55-1.30 alanine aminotransferase (SGPT), serum 25 U/L 12-78 aspartate aminotransferase (SGOT), serum 26 U/L 15-37 calcium, serum 8.7 mg/dL 8.5-10.1 bilirubin, serum, total 0.50 mg/dL 0.00-1.00 sodium, serum 141 mmol/L 941-903 3344/06/28 carbon dioxide, venous blood 31.0 mmol/L 21.0-32.0 potassium, serum 4.2 mmol/L 3.5-5.2 Lab Report: MICROALB/CREAT W/RATIO, Prothrombin Time - [...] (INR) 1.7 1.0-3.5 international normalized ratio (INR) 2.6 1.0-3.5 prothrombin time (patient) 18.3 SECS s 11.1-13.4 international normalized ratio (INR) 2.3 1.0-3.5 prothrombin time (patient) 22.8 SECS s 11.1-13.4 international normalized ratio (INR) 3.0 1.0-3.5 international normalized ratio (INR) 2.2 1.0-3.5 international normalized ratio (INR) 2.4 1.0-3.5 prothrombin time (patient) 18.9 SECS s 11.1-13.4 prothrombin time (patient) 19.9 SECS s 11.1-13.4 prothrombin time (patient) 16.6 SECS s 11.1-13.4 international normalized ratio (INR) 1.9 1.0-3.5 prothrombin time (patient) 18.1 SECS s 11.1-13.4 prothrombin time (patient) 17.3 [...] Negative Negative nitrite, urine, semiquantitative Negative Negative specific gravity, urine 1.025 1.000-1.030 appearance, urine Clear Clear urine color Yellow Colorless;Lightyellow;Straw;Yellow glucose, urine, semiquantitative Negative Negative ketones, urine, by test strip Negative Negative bilirubin, urine Negative Negative pH, urine, semiquantitative 6.0 5.0-8.5 Encounters Code Encounter Date Provider Facility CPT-74574 Level 3 Est. Patient 15:14:31 DRUG ABUSE WORKER Piotr Daley DO [facility] CPT-40035 Level 3 Est. Patient 09:20:13 DRUG ABUSE WORKER Piotr Daley [facility] CPT-07678 Level 3 Est. Patient 09:49:40 CDT Piotr Daley [facility] CPT-87639 Level 3 Est. Patient 16:28:11 CDT Piotr Daley [facility] CPT-62297 Level 3 Est. Patient 12:41:58 DRUG ABUSE WORKER Piotr Daley [facility] CPT-15630 Level 3 Est. Patient 09:21:24 CDT Piotr Daley [facility] CPT-92569 Level 3 Est. Patient 09:21:11 CDT Piotr Daley [facility] CPT-92468 Level 3 Est. Patient 11:16:29 DRUG ABUSE WORKER Piotr Daley [facility] CPT-41124 Level 3 Est. Patient 18:40:19 DRUG ABUSE WORKER Piotr Daley [facility] CPT-57219 Level 3 Est. Patient 19:30:50 CDT Piotr Daley [facility] CPT-31754 Level 3 Est. Patient 22:06:44 CDT Katrina Rinaldi MD [facility] CPT-74450 Level 3 Est. Patient 14:20:00 CDT Piotr Daley [facility] CPT-30838 Level 3 Est. Patient 14:15:22 DRUG ABUSE WORKER Piotr Daley [facility] CPT-66063 Level 3 Est. Patient 20:19:57 DRUG ABUSE WORKER Piotr Daley [facility] CPT-98467 Level 3 Est. Patient 16:44:32 CDT Piotr Daley [facility] CPT-60119 Level 3 Est. Patient 08:48:46 DRUG ABUSE WORKER Piotr Daley [facility] CPT-09485 Level 3 Est. Patient 21:01:21 CDT Piotr Daley [facility] Procedures Code Procedure Name Date Entry Date Standard Description CPT-63865 Venipuncture Draw Fee 13:29:15 CDT CPT-06386 Thoracolumbar AP/Lat 15:19:19 DRUG ABUSE WORKER CPT-G0438 Initial Annual Wellness Exam 12:18:54 DRUG ABUSE WORKER CPT-48959 Knee 3V 09:57:38 CDT CPT-OV Office Visit 15:45:01 DRUG ABUSE WORKER CPT-06429 Abd compl w upright 17:10:25 CDT
--- OUTSIDE RECORDS SUMMARY | 2018-07-18 10:06 | XMS REPORT | Clinical Summary ---
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 Personal history of malignant neoplasm of [...] po q hs for nerve pain GABAPENTIN 57692189272 Active Piotr Daley DO Active WARFARIN SODIUM 5 MG TABS 1 tablet daily WARFARIN SODIUM 21292455518 Active Simi Meyers Active TRAMADOL HCL 50 MG TABS 1 po tid with ES Tylenol TRAMADOL HCL 50693878422 Active Piotr Daley DO Active PREDNISONE 20 MG TAB 2 tablets today, then 1 tablet days 2 through 4 PREDNISONE 96877307759 No Longer Active Piotr Daley DO Active AZITHROMYCIN 250 MG TABS 2 po qd x 1 day, then 1 po qd x 4 days AZITHROMYCIN 97275752530 No Longer Active Piotr Daley DO Active IBUPROFEN 800 MG TABS 1 tab every 8 hours as needed IBUPROFEN 10067130527 No Longer Active Piotr Daley DO Active LOMOTIL 2.5-0.025 MG TAB 1 to 2 four times a day as needed for diarrhea 10/13 DIPHENOXYLATE-ATROPINE 84773114924 No Longer Active Piotr Daley DO Active WARFARIN SODIUM 4 MG TABS 1 tab every evening WARFARIN SODIUM 65998053472 No Longer Active Piotr Daley DO Active PREDNISONE 20 MG TAB 1 tablet twice daily for 2 days, then 1 tablet once daily for 2 days PREDNISONE 02031145663 No Longer Active Piotr Daley DO Active PROMETHAZINE HCL 25 MG TABS 1 four times a day as needed for nausea/vomiting PROMETHAZINE HCL 20123801592 No Longer Active Piotr Daley DO Active TUSSIONEX PENNKINETIC ER 10-8 MG/5ML LQCR 5ml po q12hr PRN Cough HYDROCOD POLST-CHLORPHEN POLST 07666097172 No Longer Active Piotr Daley DO Active AZITHROMYCIN 250 MG TABS 2 po qd x 1 day, then 1 po qd x 4 days AZITHROMYCIN 57203539891 No Longer Active Piotr Daley DO Active AZITHROMYCIN 250 MG TABS 2 po qd x 1 day, then 1 po qd x 4 days AZITHROMYCIN 26906847792 No Longer Active Piotr Daley DO Active LISINOPRIL-HYDROCHLOROTHIAZIDE 10-12.5 MG TABS 1 tab by mouth daily LISINOPRIL-HYDROCHLOROTHIAZIDE 40628912305 Active Simi Meyers Active LISINOPRIL 10 MG TABS 1/2-1 tab po every other day LISINOPRIL 36053360362 No Longer Active Piotr Daley DO Active VENTOLIN HFA 108 (90 BASE) MCG/ACT AERS 2 puffs four times a day PRN cough ALBUTEROL SULFATE 43065353682 No Longer Active Piotr Daley DO Active NYSTATIN-TRIAMCINOLONE 651854-5.1 UNIT/GM-% CREA Apply to area BID NYSTATIN-TRIAMCINOLONE 02636311770 No Longer Active Alena Chavira TEXTILE CHEMIST Active PHISOHEX 3 % LIQD Use Directed HEXACHLOROPHENE 50332022318 No Longer Active Sandra [place] Active AZITHROMYCIN 250 MG TABS 2 po qd x 1 day, then 1 po qd x 4 days AZITHROMYCIN 94036498427 No Longer Active Katrina Rinaldi MD PhD Active AZITHROMYCIN 250 MG TABS 2 po qd x 1 day, then 1 po qd x 4 days AZITHROMYCIN 98970828477 No Longer Active Piotr Daley DO Active AZITHROMYCIN 500 MG SOLR 1 po q day AZITHROMYCIN 75456539938 No Longer Active Piotr Daley DO Active NYSTATIN-TRIAMCINOLONE 096818-1.1 UNIT/GM-% CREA apply bid 08/19 NYSTATIN-TRIAMCINOLONE 98326192817 No Longer Active Piotr Daley DO Active IBUPROFEN 800 MG TABS 1 po q 8 hours prn pain sparinly IBUPROFEN 59160188638 No Longer Active Piotr Daley DO Active VITAMIN D3 5000 UNIT CAPS 1 po daily CHOLECALCIFEROL 61293260719 Active Piotr Daley DO Active IBUPROFEN 800 MG TABS 1 po q 8 hours prn pain sparinly IBUPROFEN 800 MG TABS 342614 IBUPROFEN Inactive NYSTATIN-TRIAMCINOLONE 134163-1.1 UNIT/GM-% CREA apply bid 08/19 NYSTATIN-TRIAMCINOLONE 469050-8.1 UNIT/GM-% CREA 9091526 NYSTATIN- TRIAMCINOLONE Inactive AZITHROMYCIN 500 MG SOLR 1 po q day AZITHROMYCIN 500 MG SOLR 94227072702 AZITHROMYCIN Inactive VENTOLIN HFA 108 (90 BASE) MCG/ACT AERS 2 puffs four times a day PRN cough VENTOLIN HFA 108 (90 BASE) MCG/ACT AERS ALBUTEROL SULFATE Inactive LISINOPRIL 10 MG TABS 1/2-1 tab po every other day LISINOPRIL 10 MG TABS 690203 LISINOPRIL Inactive TUSSIONEX PENNKINETIC ER 10-8 MG/5ML LQCR 5ml po q12hr PRN Cough TUSSIONEX PENNKINETIC ER 10-8 MG/5ML LQCR HYDROCOD POLST- CHLORPHEN POLST Inactive PROMETHAZINE HCL 25 MG TABS 1 four times a day as needed for nausea/vomiting PROMETHAZINE HCL 25 MG TABS 186589 PROMETHAZINE HCL Inactive PREDNISONE 20 MG TAB 1 tablet twice daily for 2 days, then 1 tablet once daily for 2 days PREDNISONE 20 MG TAB 328742 PREDNISONE Inactive WARFARIN SODIUM 4 MG TABS 1 tab every evening WARFARIN SODIUM 4 MG TABS 535949 WARFARIN SODIUM Inactive LOMOTIL 2.5-0.025 MG TAB 1 to 2 four times a day as needed for diarrhea 10/13 LOMOTIL 2.5-0.025 MG TAB 3082820 DIPHENOXYLATE-ATROPINE Inactive IBUPROFEN 800 MG TABS 1 tab every 8 hours as needed IBUPROFEN 800 MG TABS 232078 IBUPROFEN Inactive PREDNISONE 20 MG TAB 2 tablets today, then 1 tablet days 2 through 4 PREDNISONE 20 MG TAB 934073 PREDNISONE Inactive AZITHROMYCIN 250 MG TABS 2 po qd x 1 day, then 1 po qd x 4 days AZITHROMYCIN 250 MG TABS 0988251 AZITHROMYCIN Inactive AZITHROMYCIN 250 MG TABS 2 po qd x 1 day, then 1 po qd x 4 days AZITHROMYCIN 250 MG TABS 5218993 AZITHROMYCIN Inactive NYSTATIN-TRIAMCINOLONE 116170-6.1 UNIT/GM-% CREA Apply to area BID NYSTATIN-TRIAMCINOLONE 372371-5.1 UNIT/GM-% CREA 5463802 NYSTATIN-TRIAMCINOLONE Inactive AZITHROMYCIN 250 MG TABS 2 po qd x 1 day, then 1 po qd x 4 days AZITHROMYCIN 250 MG TABS 0944619 AZITHROMYCIN Inactive AZITHROMYCIN 250 MG TABS 2 po qd x 1 day, then 1 po qd x 4 days AZITHROMYCIN 250 MG TABS 1477886 AZITHROMYCIN Inactive AZITHROMYCIN 250 MG TABS 2 po qd x 1 day, then 1 po qd x 4 days AZITHROMYCIN 250 MG TABS 0923706 AZITHROMYCIN Inactive Advance Directives Directive Description Start [...] Panel - Chemistry sodium, serum 141 mmol/L 870-720 8018/06/28 carbon dioxide, venous blood 31.0 mmol/L 21.0-32.0 [...] 1.0-3.5 Encounters Code Encounter Date Provider Facility CPT-87678 Level 4 Est. Patient 17:15:07 GEOLOGIST PETROLEUM Piotr Daley [facility] CPT-78697 Level 3 Est. Patient 12:46:13 GEOLOGIST PETROLEUM Piotr Daley [facility] CPT-43444 Level 3 Est. Patient 15:14:31 GEOLOGIST PETROLEUM Piotr Daley [facility] CPT-37395 Level 3 Est. Patient 09:20:13 GEOLOGIST PETROLEUM Piotr Daley [facility] CPT-41604 Level 3 Est. Patient 09:49:40 CDT Piotr Wilson [facility] CPT-50873 Level 3 Est. Patient 16:28:11 CDT Piotr Daley [facility] CPT-85697 Level 3 Est. Patient 12:41:58 GEOLOGIST PETROLEUM Piotr Daley [facility] CPT-18038 Level 3 Est. Patient 09:21:24 CDT Piotr Daley [facility] CPT-63812 Level 3 Est. Patient 09:21:11 CDT Piotr Daley [facility] CPT-18569 Level 3 Est. Patient 11:16:29 GEOLOGIST PETROLEUM Piotr Daley [facility] CPT-80719 Level 3 Est. Patient 18:40:19 GEOLOGIST PETROLEUM Piotr Daley [facility] CPT-99974 Level 3 Est. Patient 19:30:50 CDT Piotr Daley [facility] CPT-89415 Level 3 Est. Patient 22:06:44 CDT Katrina Rinaldi MD [facility] CPT-00224 Level 3 Est. Patient 14:20:00 CDT Piotr Daley [facility] CPT-76741 Level 3 Est. Patient 14:15:22 GEOLOGIST PETROLEUM Piotr Daley [facility] CPT-92629 Level 3 Est. Patient 20:19:57 GEOLOGIST PETROLEUM Piotr Daley [facility] CPT-64833 Level 3 Est. Patient 16:44:32 CDT Piotr Daley [facility] CPT-33905 Level 3 Est. Patient 08:48:46 GEOLOGIST PETROLEUM Pitor Daley [facility] CPT-39875 Level 3 Est. Patient 21:01:21 CDT Piotr Daley [facility] Procedures Code Procedure Name Date Entry Date Standard Description CPT-95135 PT/INR - LAB USE ONLY 08:12:25 GEOLOGIST [facility]RO[facility] CPT-83221 Venipuncture Draw Fee 08:12:24 GEOLOGIST [employer] CPT-83411 Venipuncture Draw Fee 11:31:07 GEOLOGIST [employer]ROLE[employer] CPT-91361 TPSA - LAB USE ONLY 11:31:07 GEOLOGIST [facility]RO[facility] CPT-60386 PT/INR - LAB USE ONLY 11:31:07 GEOLOGIST [facility] CPT-G0439 Subsequent Annual Wellness Exam 09:59:29 GEOLOGIST [facility] CPT-38847 Creatinine - LAB USE ONLY 14:37:55 GEOLOGIST [employer] CPT-53369 PT/INR - LAB USE ONLY 14:37:55 GEOLOGIST [employer] CPT-55198 Venipuncture Draw Fee 14:37:55 GEOLOGIST [employer] CPT-47498 LS spine comp w obliques - XRAY USE ONLY 12:59:25 GEOLOGIST [employer] CPT-21264 PT/INR - LAB USE ONLY 13:49:20 CDT CPT-57974 Venipuncture Draw Fee 13:49:19 CDT CPT-70447 PT/INR - LAB USE ONLY 15:48:49 CDT CPT-02635 Venipuncture Draw Fee 15:48:49 CDT CPT-81161 Venipuncture Draw Fee 11:31:59 CDT CPT-43976 PT/INR - LAB USE ONLY 11:31:59 CDT CPT-45623 Venipuncture Draw Fee 13:29:15 CDT CPT-47198 Thoracolumbar AP/Lat 15:19:19 GEOLOGIST [employer]ROLEUM CPT-G0438 Initial Annual Wellness Exam 12:18:54 GEOLOGIST [employer]ROLE[employer] CPT-24344 Knee 3V 09:57:38 CDT CPT-OV Office Visit 15:45:01 GEOLOGIST [facility]ROLEUM CPT-75739 Abd compl w upright 17:10:25 CDT
--- OUTSIDE RECORDS SUMMARY | 2018-07-18 10:06 | XMS REPORT | Clinical Summary ---
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 STATION OPERATOR Actinic keratoses ICD-702.0 Inactive Sirisha Chen CENTRAL STATION OPERATOR Back pain, thoracic region, left ICD-724.1 Inactive Piotr Daley DO Thoracic back pain ICD-724.5 Inactive Sirisha Chen CENTRAL STATION OPERATOR Back pain lumbar ICD-724.2 Inactive Sirisha Chen CENTRAL STATION OPERATOR Insect bite ICD-919.4 Inactive Sirisha Chen CENTRAL STATION OPERATOR Pruritus ICD-698.9 Inactive Sirisha Chen CENTRAL STATION OPERATOR 04/09 Bronchitis-Acute ICD-466.0 Inactive Sirisha Chen CENTRAL STATION OPERATOR Dyspnea ICD-786.09 Inactive Sirisha Chen CENTRAL STATION OPERATOR 05/09 Medication List Medication Instructions Start Date Stop Date Generic Name NDC Status Provider Patient Instruction WARFARIN SODIUM 4 MG ORAL TABLET 1 tablet by mouth daily WARFARIN SODIUM 31020176030 Active Anahy Loja Active MELOXICAM 15 MG ORAL TABLET 1 po q day for pain with food MELOXICAM 92500739361 Active Piotr Daley DO Active PREDNISONE 10 MG ORAL TABLET 1 tablet by mouth daily PREDNISONE 06083843338 No Longer Active Emelyn Norris Active TESSALON PERLES 100 MG ORAL CAPSULE 1-2 tablet by mouth 3 times daily 04/16 BENZONATATE 68232100012 No Longer Active Emelyn Norris Active PREDNISONE 20 MG ORAL TABLET two tabs by mouth today, then one tab by mouth days two and three PREDNISONE 49973185374 No Longer Active Piotr Daley DO Active CYCLOBENZAPRINE HCL 10 MG ORAL TABLET 1 tablet by mouth three times daily as needed for muscle spasm/pain CYCLOBENZAPRINE HCL 76426481774 Active Sirisha Gustavo CENTRAL STATION OPERATOR Active ZITHROMAX 250 MG ORAL TABLET Take two (2 ) tablets day one, then one (1) tablet a day for four (4) more days AZITHROMYCIN 94059623877 No Longer Active Piotr Daley DO Active PROAIR HFA 108 (90 BASE) MCG/ACT INHALATION AEROSOL SOLUTION 1-2 puffs four times a day as needed ALBUTEROL SULFATE 52726492953 No Longer Active Emelyn Norris Active DOXYCYCLINE HYCLATE 100 MG ORAL CAPSULE 1 cap by mouth BID x10 days DOXYCYCLINE HYCLATE 72349259547 No Longer Active Nella Harris APRN Active PREDNISONE 20 MG ORAL TABLET 2 tabs daily for 3 days, 1 tab daily for 3 days, 1/2 tab daily for 2 days PREDNISONE 46752541202 No Longer Active Matthew Rangel MD Active TRAMADOL HCL 50 MG ORAL TABLET 1 po tid with ES Tylenol TRAMADOL HCL 88939640812 No Longer Active Matthew Rangel MD Active GABAPENTIN 300 MG ORAL CAPSULE 1 po q hs for nerve pain GABAPENTIN 24273099495 No Longer Active Matthew Rangel MD Active PREDNISONE 20 MG ORAL TABLET 2 tablets today, then 1 tablet days 2 through 4 PREDNISONE 19396326868 No Longer Active Piotr Daley DO Active AZITHROMYCIN 250 MG ORAL TABLET 2 po qd x 1 day, then 1 po qd x 4 days 07/12 AZITHROMYCIN 94513679941 No Longer Active Piotr Daley DO Active IBUPROFEN 800 MG ORAL TABLET 1 tab every 8 hours as needed 07/12 IBUPROFEN 02980194174 No Longer Active Piotr Daley DO Active LOMOTIL 2.5-0.025 MG ORAL TABLET 1 to 2 four times a day as needed for diarrhea DIPHENOXYLATE-ATROPINE 09931736950 No Longer Active Piotr W Edi DO Active WARFARIN SODIUM 4 MG ORAL TABLET 1 tab every evening WARFARIN SODIUM 31377641151 No Longer Active Piotr Daley DO Active PREDNISONE 20 MG ORAL TABLET 1 tablet twice daily for 2 days, then 1 tablet once daily for 2 days PREDNISONE 72348729466 No Longer Active Piotr Daley DO Active PROMETHAZINE HCL 25 MG ORAL TABLET 1 four times a day as needed for nausea/ vomiting PROMETHAZINE HCL 15919279223 No Longer Active Piotr Daley DO Active TUSSIONEX PENNKINETIC ER 10-8 MG/5ML ORAL SUSPENSION EXTENDED RELEASE 5ml po q12hr PRN Cough HYDROCOD POLST-CHLORPHEN POLST 96830023981 No Longer Active Piotr Daley DO Active AZITHROMYCIN 250 MG ORAL TABLET 2 po qd x 1 day, then 1 po qd x 4 days 10/13 AZITHROMYCIN 09358268122 No Longer Active Piotr Daley DO Active AZITHROMYCIN 250 MG ORAL TABLET 2 po qd x 1 day, then 1 po qd x 4 days 05/07 AZITHROMYCIN 92113632469 No Longer Active Piotr Daley DO Active LISINOPRIL-HYDROCHLOROTHIAZIDE 10-12.5 MG ORAL TABLET 1 tab by mouth daily LISINOPRIL-HYDROCHLOROTHIAZIDE 01793164599 Active Piotr Daley DO Active LISINOPRIL 10 MG ORAL TABLET 1/2-1 tab po every other day LISINOPRIL 91852587060 No Longer Active Piotr Daley DO Active VENTOLIN HFA 108 (90 Base) MCG/ACT INHALATION AEROSOL SOLUTION 2 puffs four times a day PRN cough ALBUTEROL SULFATE 40958504462 No Longer Active Piotr Daley DO Active NYSTATIN-TRIAMCINOLONE 600830-9.1 UNIT/GM-% EXTERNAL CREAM Apply to area BID NYSTATIN-TRIAMCINOLONE 81865415862 No Longer Active Alena Chavira CENTRAL STATION OPERATOR Active PHISOHEX 3 % LIQD Use Directed HEXACHLOROPHENE 49103435230 No Longer Active Sandra [place] Active AZITHROMYCIN 250 MG ORAL TABLET 2 po qd x 1 day, then 1 po qd x 4 days 10/21 AZITHROMYCIN 92570595186 No Longer Active Katrina Rinaldi MD PhD Active AZITHROMYCIN 250 MG ORAL TABLET 2 po qd x 1 day, then 1 po qd x 4 days 10/16 AZITHROMYCIN 63926366975 No Longer Active Piotr Daley DO Active AZITHROMYCIN 500 MG INTRAVENOUS SOLUTION RECONSTITUTED 1 po q day AZITHROMYCIN 25873094246 No Longer Active Piotr Daley DO Active NYSTATIN-TRIAMCINOLONE 649719-0.1 UNIT/GM-% EXTERNAL CREAM apply bid NYSTATIN-TRIAMCINOLONE 10419348161 No Longer Active Piotr Daley DO Active IBUPROFEN 800 MG ORAL TABLET 1 po q 8 hours prn pain sparinly IBUPROFEN 34051135260 No Longer Active Piotr Daley DO Active VITAMIN D3 5000 UNIT ORAL CAPSULE 1 po daily CHOLECALCIFEROL 54186100260 Active Piotr Daley DO Active IBUPROFEN 800 MG ORAL TABLET 1 po q 8 hours prn pain sparinly IBUPROFEN 800 MG ORAL TABLET 133170 IBUPROFEN Inactive NYSTATIN-TRIAMCINOLONE 859714-1.1 UNIT/GM-% EXTERNAL CREAM apply bid NYSTATIN-TRIAMCINOLONE 241153-5.1 UNIT/GM-% EXTERNAL CREAM 7840408 NYSTATIN-TRIAMCINOLONE Inactive AZITHROMYCIN 500 MG INTRAVENOUS SOLUTION RECONSTITUTED 1 po q day AZITHROMYCIN 500 MG INTRAVENOUS SOLUTION RECONSTITUTED 35857366837 AZITHROMYCIN Inactive VENTOLIN HFA 108 (90 Base) MCG/ACT INHALATION AEROSOL SOLUTION 2 puffs four times a day PRN cough VENTOLIN HFA 108 (90 Base) MCG/ ACT INHALATION AEROSOL SOLUTION ALBUTEROL SULFATE Inactive LISINOPRIL 10 MG ORAL TABLET 1/2-1 tab po every other day LISINOPRIL 10 MG ORAL TABLET 710047 LISINOPRIL Inactive TUSSIONEX PENNKINETIC ER 10-8 MG/5ML ORAL SUSPENSION EXTENDED RELEASE 5ml po q12hr PRN Cough TUSSIONEX PENNKINETIC ER 10-8 MG/5ML ORAL SUSPENSION EXTENDED RELEASE HYDROCOD POLST-CHLORPHEN POLST Inactive PROMETHAZINE HCL 25 MG ORAL TABLET 1 four times a day as needed for nausea/ vomiting PROMETHAZINE HCL 25 MG ORAL TABLET 278712 PROMETHAZINE HCL Inactive PREDNISONE 20 MG ORAL TABLET 1 tablet twice daily for 2 days, then 1 tablet once daily for 2 days PREDNISONE 20 MG ORAL TABLET 960934 PREDNISONE Inactive WARFARIN SODIUM 4 MG ORAL TABLET 1 tab every evening WARFARIN SODIUM 4 MG ORAL TABLET 686449 WARFARIN SODIUM Inactive LOMOTIL 2.5-0.025 MG ORAL TABLET 1 to 2 four times a day as needed for diarrhea LOMOTIL 2.5-0.025 MG ORAL TABLET 0603809 DIPHENOXYLATE-ATROPINE Inactive IBUPROFEN 800 MG ORAL TABLET 1 tab every 8 hours as needed 07/12 IBUPROFEN 800 MG ORAL TABLET 651341 IBUPROFEN Inactive PREDNISONE 20 MG ORAL TABLET 2 tablets today, then 1 tablet days 2 through 4 PREDNISONE 20 MG ORAL TABLET 028298 PREDNISONE Inactive GABAPENTIN 300 MG ORAL CAPSULE 1 po q hs for nerve pain GABAPENTIN 300 MG ORAL CAPSULE 892604 GABAPENTIN Inactive TRAMADOL HCL 50 MG ORAL TABLET 1 po tid with ES Tylenol TRAMADOL HCL 50 MG ORAL TABLET 230891 TRAMADOL HCL Inactive PROAIR HFA 108 (90 BASE) MCG/ACT INHALATION AEROSOL SOLUTION 1-2 puffs four times a day as needed PROAIR HFA 108 (90 BASE) MCG/ACT INHALATION AEROSOL SOLUTION ALBUTEROL SULFATE Inactive PREDNISONE 20 MG ORAL TABLET two tabs by mouth today, then one tab by mouth days two and three PREDNISONE 20 MG ORAL TABLET 346584 PREDNISONE Inactive TESSALON PERLES 100 MG ORAL CAPSULE 1-2 tablet by mouth 3 times daily 04/16 TESSALON PERLES 100 MG ORAL CAPSULE 241149 BENZONATATE Inactive PREDNISONE 10 MG ORAL TABLET 1 tablet by mouth daily PREDNISONE 10 MG ORAL TABLET 998493 PREDNISONE Inactive AZITHROMYCIN 250 MG ORAL TABLET 2 po qd x 1 day, then 1 po qd x 4 days 10/16 AZITHROMYCIN 250 MG ORAL TABLET 933604 AZITHROMYCIN Inactive AZITHROMYCIN 250 MG ORAL TABLET 2 po qd x 1 day, then 1 po qd x 4 days 10/21 AZITHROMYCIN 250 MG ORAL TABLET 436482 AZITHROMYCIN Inactive NYSTATIN-TRIAMCINOLONE 843951-6.1 UNIT/GM-% EXTERNAL CREAM Apply to area BID NYSTATIN-TRIAMCINOLONE 133410-5.1 UNIT/GM-% EXTERNAL CREAM 6300546 NYSTATIN-TRIAMCINOLONE Inactive AZITHROMYCIN 250 MG ORAL TABLET 2 po qd x 1 day, then 1 po qd x 4 days 05/07 AZITHROMYCIN 250 MG ORAL TABLET 645376 AZITHROMYCIN Inactive AZITHROMYCIN 250 MG ORAL TABLET 2 po qd x 1 day, then 1 po qd x 4 days 10/13 AZITHROMYCIN 250 MG ORAL TABLET 406472 AZITHROMYCIN Inactive AZITHROMYCIN 250 MG ORAL TABLET 2 po qd x 1 day, then 1 po qd x 4 days 07/12 AZITHROMYCIN 250 MG ORAL TABLET 467111 AZITHROMYCIN Inactive PREDNISONE 20 MG ORAL TABLET 2 tabs daily for 3 days, 1 tab daily for 3 days, 1/2 tab daily for 2 days PREDNISONE 20 MG ORAL TABLET 463962 PREDNISONE Inactive DOXYCYCLINE HYCLATE 100 MG ORAL CAPSULE 1 cap by mouth BID x10 days DOXYCYCLINE HYCLATE 100 MG ORAL CAPSULE 8463745 DOXYCYCLINE HYCLATE Inactive ZITHROMAX 250 MG ORAL TABLET Take two (2 ) tablets day one, then one (1) tablet a day for four (4) more days ZITHROMAX 250 MG ORAL TABLET 980529 AZITHROMYCIN Inactive Advance Directives Directive Description Start [...] 18.9-24.9 Encounters Code Encounter Date Provider Facility CPT-96347 Level 3 Est. Patient 15:59:25 [facility] Piotr Katie Edi [facility] CPT-55460 Level 3 Est. Patient 12:33:59 [facility] Piotr Daley [facility] CPT-65620 Level 3 Est. Patient 15:56:17 [facility] Piotr Katie Edi [facility] CPT-19322 Level 3 Est. Patient 10:34:54 [facility] Piotr Daley [facility] CPT-67405 Level 3 Est. Patient 17:10:19 CDT Nella Harris APRN [facility] CPT-21988 Level 3 Est. Patient 10:48:17 [facility] Matthew Rangel MD [facility] CPT-83785 Level 4 Est. Patient 17:15:07 [facility] Piotr Katie Edi [facility] CPT-52518 Level 3 Est. Patient 12:46:13 [facility] Piotr Katie Edi [facility] CPT-31785 Level 3 Est. Patient 15:14:31 [facility] Piotr Katie Edi [facility] CPT-84789 Level 3 Est. Patient 09:20:13 [facility] Piotr Wilson Edi [facility] CPT-45093 Level 3 Est. Patient 09:49:40 CDT Piotr Wilson [facility] CPT-10072 Level 3 Est. Patient 16:28:11 CDT Piotr Wilson Edi [facility] CPT-83567 Level 3 Est. Patient 12:41:58 [facility] Piotr Daley [facility] CPT-54018 Level 3 Est. Patient 09:21:24 CDT Piotr Wilson [facility] CPT-20368 Level 3 Est. Patient 09:21:11 CDT Piotr Wilson [facility] CPT-11771 Level 3 Est. Patient 11:16:29 [facility] Piotr Daley [facility] CPT-73522 Level 3 Est. Patient 18:40:19 [facility] Piotr Daley [facility] CPT-56309 Level 3 Est. Patient 19:30:50 CDT Piotr Daley [facility] CPT-27863 Level 3 Est. Patient 22:06:44 CDT Katrina Rinaldi MD [facility] CPT-76532 Level 3 Est. Patient 14:20:00 CDT Piotr Daley [facility] CPT-22740 Level 3 Est. Patient 14:15:22 [facility] Piotr Daley [facility] CPT-55152 Level 3 Est. Patient 20:19:57 [facility] Piotr Daley [facility] CPT-36858 Level 3 Est. Patient 16:44:32 CDT Piotr Daley [facility] CPT-57599 Level 3 Est. Patient 08:48:46 [facility] Piotr Daley [facility] CPT-49054 Level 3 Est. Patient 21:01:21 CDT Piotr Daley [facility] Procedures Code Procedure Name Date Entry Date Standard Description CPT-82797 Sacroiliac jt < 3V - XRAY USE ONLY 16:45:19 [facility] 05/09 CPT-25575 LS spine comp w obliques - XRAY USE ONLY 14:52:26 [facility] CPT-03215 Chest, 2 views 12:55:58 [facility] CPT-G0439 [facility] Annual Wellness Exam 10:34:52 [facility] CPT-23094 BMP - LAB USE ONLY 17:19:11 [facility] CPT-30340 PT/INR - LAB USE ONLY 17:19:10 [facility] CPT-90771 Venipuncture Draw Fee 17:19:10 [facility] CPT-08365 PT/INR - LAB USE ONLY 08:12:25 [facility] CPT-05954 Venipuncture Draw Fee 08:12:24 [facility] CPT-10486 Venipuncture Draw Fee 11:31:07 [facility] CPT-34648 [facility]PSA - LAB USE ONLY 11:31:07 [facility] CPT-35420 PT/INR - LAB USE ONLY 11:31:07 [facility] CPT-G0439 Subsequent Annual Wellness Exam 09:59:29 [facility] CPT-50703 Creatinine - LAB USE ONLY 14:37:55 [facility] CPT-91283 PT/INR - LAB USE ONLY 14:37:55 [facility] CPT-95096 Venipuncture Draw Fee 14:37:55 [facility] CPT-48330 LS spine comp w obliques - XRAY USE ONLY 12:59:25 [facility] CPT-86883 PT/INR - LAB USE ONLY 13:49:20 CDT CPT-08152 Venipuncture Draw Fee 13:49:19 CDT CPT-69903 PT/INR - LAB USE ONLY 15:48:49 CDT CPT-76536 Venipuncture Draw Fee 15:48:49 CDT CPT-87217 Venipuncture Draw Fee 11:31:59 CDT CPT-73388 PT/INR - LAB USE ONLY 11:31:59 CDT CPT-47579 Venipuncture Draw Fee 13:29:15 CDT CPT-56452 Thoracolumbar AP/Lat 15:19:19 [facility] CPT-G0438 Initial Annual Wellness Exam 12:18:54 [facility] CPT-01144 Knee 3V 09:57:38 CDT CPT-OV Office Visit 15:45:01 [facility] CPT-20202 Abd compl w upright 17:10:25 CDT
--- OUTSIDE RECORDS SUMMARY | 2018-07-18 10:07 | XMS REPORT | Clinical Summary ---
Author Author Admin, [facility] Address Unknown Phone Unavailable Allergies, Adverse Reactions, [...] health care facility Actinic keratoses 702.0 Active Piort Wilson Edi DO Actinic keratosis Personal history of malignant neoplasm of prostate V10.46 Active Alina Meyers [employer] Personal history of malignant neoplasm of prostate [...] Insect bite 919.4 Active Nella Harris [employer] Insect bite, nonvenomous, of other, multiple, and unspecified sites, without mention of infection Pruritus 698.9 Active Nella Harris [employer] Unspecified pruritic disorder FLANK PAIN, RIGHT ICD-789.09 [...] mouth BID x10 days 10/01 DOXYCYCLINE HYCLATE 04960863594 No Longer Active Nella Harris APRN Active WARFARIN SODIUM 5 MG TABS 1 tablet daily M-S, 1/2 tab on Heart WARFARIN SODIUM 77574800096 Active Anahy Loja Active PROAIR HFA 108 (90 BASE) MCG/ACT AERS 1-2 puffs four times a day as needed ALBUTEROL SULFATE 50958718213 Active Matthew Rangel MD Active PREDNISONE 20 MG TAB 2 tabs daily for 3 days, 1 tab daily for 3 days, 1/2 tab daily for 2 days PREDNISONE 38574709048 No Longer Active Matthew Rangel MD Active TRAMADOL HCL 50 MG TABS 1 po tid with ES Tylenol TRAMADOL HCL 23734921617 No Longer Active Matthew Rangel MD Active GABAPENTIN 300 MG CAPS 1 po q hs for nerve pain GABAPENTIN 26533206183 No Longer Active Matthew Rangel MD Active PREDNISONE 20 MG TAB 2 tablets today, then 1 tablet days 2 through 4 PREDNISONE 86316380761 No Longer Active Piotr Daley DO Active AZITHROMYCIN 250 MG TABS 2 po qd x 1 day, then 1 po qd x 4 days AZITHROMYCIN 96290181383 No Longer Active Piotr Daley DO Active IBUPROFEN 800 MG TABS 1 tab every 8 hours as needed IBUPROFEN 51194813534 No Longer Active Piotr Daley DO Active LOMOTIL 2.5-0.025 MG TAB 1 to 2 four times a day as needed for diarrhea 10/13 DIPHENOXYLATE-ATROPINE 29070247415 No Longer Active Piotr Daley DO Active WARFARIN SODIUM 4 MG TABS 1 tab every evening WARFARIN SODIUM 46925820199 No Longer Active Piotr Daley DO Active PREDNISONE 20 MG TAB 1 tablet twice daily for 2 days, then 1 tablet once daily for 2 days PREDNISONE 17671907220 No Longer Active Piotr Daley DO Active PROMETHAZINE HCL 25 MG TABS 1 four times a day as needed for nausea/vomiting PROMETHAZINE HCL 04281352426 No Longer Active Piotr Daley DO Active TUSSIONEX PENNKINETIC ER 10-8 MG/5ML LQCR 5ml po q12hr PRN Cough HYDROCOD POLST-CHLORPHEN POLST 98253277670 No Longer Active Piotr Daley DO Active AZITHROMYCIN 250 MG TABS 2 po qd x 1 day, then 1 po qd x 4 days AZITHROMYCIN 86450970140 No Longer Active Piotr Daley DO Active AZITHROMYCIN 250 MG TABS 2 po qd x 1 day, then 1 po qd x 4 days AZITHROMYCIN 22826901310 No Longer Active Piotr Daley DO Active LISINOPRIL-HYDROCHLOROTHIAZIDE 10-12.5 MG TABS 1 tab by mouth daily LISINOPRIL-HYDROCHLOROTHIAZIDE 20984772946 Active Catalina Freitas Active LISINOPRIL 10 MG TABS 1/2-1 tab po every other day LISINOPRIL 32279049751 No Longer Active Piotr W Edi DO Active VENTOLIN HFA 108 (90 BASE) MCG/ACT AERS 2 puffs four times a day PRN cough ALBUTEROL SULFATE 41198064125 No Longer Active Piotr Daley DO Active NYSTATIN-TRIAMCINOLONE 707003-9.1 UNIT/GM-% CREA Apply to area BID NYSTATIN-TRIAMCINOLONE 66749942411 No Longer Active Alena Oswaldum [employer]ISTRATOR Active PHISOHEX 3 % LIQD Use Directed HEXACHLOROPHENE 03907453107 No Longer Active Sandra Wilbraham Active AZITHROMYCIN 250 MG TABS 2 po qd x 1 day, then 1 po qd x 4 days AZITHROMYCIN 37793928061 No Longer Active Katrina Rinaldi MD PhD Active AZITHROMYCIN 250 MG TABS 2 po qd x 1 day, then 1 po qd x 4 days AZITHROMYCIN 31786869020 No Longer Active Piotr Daley DO Active AZITHROMYCIN 500 MG SOLR 1 po q day AZITHROMYCIN 02469187364 No Longer Active Piotr Daley DO Active NYSTATIN-TRIAMCINOLONE 159151-5.1 UNIT/GM-% CREA apply bid 08/19 NYSTATIN-TRIAMCINOLONE 62700306857 No Longer Active Piotr Daley DO Active IBUPROFEN 800 MG TABS 1 po q 8 hours prn pain sparinly IBUPROFEN 50946606145 No Longer Active Piotr Daley DO Active VITAMIN D3 5000 UNIT CAPS 1 po daily CHOLECALCIFEROL 10112201485 Active Piotr Daley DO Active IBUPROFEN 800 MG TABS 1 po q 8 hours prn pain sparinly IBUPROFEN 800 MG TABS 932986 IBUPROFEN Inactive NYSTATIN-TRIAMCINOLONE 608140-4.1 UNIT/GM-% CREA apply bid 08/19 NYSTATIN-TRIAMCINOLONE 074494-5.1 UNIT/GM-% CREA 6884964 NYSTATIN- TRIAMCINOLONE Inactive AZITHROMYCIN 500 MG SOLR 1 po q day AZITHROMYCIN 500 MG SOLR 18096635604 AZITHROMYCIN Inactive VENTOLIN HFA 108 (90 BASE) MCG/ACT AERS 2 puffs four times a day PRN cough VENTOLIN HFA 108 (90 BASE) MCG/ACT AERS ALBUTEROL SULFATE Inactive LISINOPRIL 10 MG TABS 1/2-1 tab po every other day LISINOPRIL 10 MG TABS 847185 LISINOPRIL Inactive TUSSIONEX PENNKINETIC ER 10-8 MG/5ML LQCR 5ml po q12hr PRN Cough TUSSIONEX PENNKINETIC ER 10-8 MG/5ML LQCR HYDROCOD POLST- CHLORPHEN POLST Inactive PROMETHAZINE HCL 25 MG TABS 1 four times a day as needed for nausea/vomiting PROMETHAZINE HCL 25 MG TABS 243199 PROMETHAZINE HCL Inactive PREDNISONE 20 MG TAB 1 tablet twice daily for 2 days, then 1 tablet once daily for 2 days PREDNISONE 20 MG TAB 510338 PREDNISONE Inactive WARFARIN SODIUM 4 MG TABS 1 tab every evening WARFARIN SODIUM 4 MG TABS 192248 WARFARIN SODIUM Inactive LOMOTIL 2.5-0.025 MG TAB 1 to 2 four times a day as needed for diarrhea 10/13 LOMOTIL 2.5-0.025 MG TAB 5105824 DIPHENOXYLATE-ATROPINE Inactive IBUPROFEN 800 MG TABS 1 tab every 8 hours as needed IBUPROFEN 800 MG TABS 030241 IBUPROFEN Inactive PREDNISONE 20 MG TAB 2 tablets today, then 1 tablet days 2 through 4 PREDNISONE 20 MG TAB 132587 PREDNISONE Inactive GABAPENTIN 300 MG CAPS 1 po q hs for nerve pain GABAPENTIN 300 MG CAPS 749710 GABAPENTIN Inactive TRAMADOL HCL 50 MG TABS 1 po tid with ES Tylenol TRAMADOL HCL 50 MG TABS 086779 TRAMADOL HCL Inactive AZITHROMYCIN 250 MG TABS 2 po qd x 1 day, then 1 po qd x 4 days AZITHROMYCIN 250 MG TABS 1054409 AZITHROMYCIN Inactive AZITHROMYCIN 250 MG TABS 2 po qd x 1 day, then 1 po qd x 4 days AZITHROMYCIN 250 MG TABS 6041833 AZITHROMYCIN Inactive NYSTATIN-TRIAMCINOLONE 413242-5.1 UNIT/GM-% CREA Apply to area BID NYSTATIN-TRIAMCINOLONE 384966-9.1 UNIT/GM-% CREA 8700222 NYSTATIN-TRIAMCINOLONE Inactive AZITHROMYCIN 250 MG TABS 2 po qd x 1 day, then 1 po qd x 4 days AZITHROMYCIN 250 MG TABS 4926189 AZITHROMYCIN Inactive AZITHROMYCIN 250 MG TABS 2 po qd x 1 day, then 1 po qd x 4 days AZITHROMYCIN 250 MG TABS 9973679 AZITHROMYCIN Inactive AZITHROMYCIN 250 MG TABS 2 po qd x 1 day, then 1 po qd x 4 days AZITHROMYCIN 250 MG TABS 0203765 AZITHROMYCIN Inactive PREDNISONE 20 MG TAB 2 tabs daily for 3 days, 1 tab daily for 3 days, 1/2 tab daily for 2 days PREDNISONE 20 MG TAB 150013 PREDNISONE Inactive DOXYCYCLINE HYCLATE 100 MG CAP 1 cap by mouth BID x10 days 10/01 DOXYCYCLINE HYCLATE 100 MG CAP 0346290 DOXYCYCLINE HYCLATE Inactive Advance Directives Directive Description [...] Panel - Chemistry sodium, serum 141 mmol/L 580-873 9513/01/24 potassium, serum 4.3 mmol/L 3.5-5.2 chloride, serum [...] % 11.0-15.0 platelet count 172 THOUSAND/UL 10*3/mm3 352-529 5334/04/12 mean platelet volume 8.6 fL 7.5-12.5 Lab [...] prothrombin time (patient) 27.8 SECS s 11.1-13.4 prothrombin time (patient) 23.8 SECS s 11.1-13.4 international normalized ratio (INR) 3.2 1.0-3.5 prothrombin time (patient) 23.1 SECS s 11.1-13.4 international normalized ratio (INR) 3.0 1.0-3.5 prothrombin time (patient) 24.3 SECS s 11.1-13.4 international normalized ratio (INR) 3.3 1.0-3.5 international normalized ratio (INR) 4.2 1.0-3.5 Lab Report: Prothrombin Time Hemochron - Coagulation prothrombin time (patient) 33.0 SECS s 18.9-24.9 Encounters Code Encounter Date Provider Facility CPT-04721 Level 3 Est. Patient 17:10:19 MALACHI Harris [employer] [facility] CPT-98056 Level 3 Est. Patient 10:48:17 [employer]OUNDRY MOL[employer] Matthew Rangel MD [facility] CPT-28772 Level 4 Est. Patient 17:15:07 FOUNDRY MOLDER Piotr Daley [facility] CPT-99281 Level 3 Est. Patient 12:46:13 FOUNDRY MOLDER Piotr Daley [facility] CPT-35012 Level 3 Est. Patient 15:14:31 FOUNDRY MOLDER Piotr Daley [facility] CPT-41786 Level 3 Est. Patient 09:20:13 FOUNDRY MOLDER Piotr Daley [facility] CPT-30968 Level 3 Est. Patient 09:49:40 CDT Piotr Daley [facility] CPT-76898 Level 3 Est. Patient 16:28:11 CDT Piotr Daley [facility] CPT-49303 Level 3 Est. Patient 12:41:58 FOUNDRY MOLDER Piotr Daley [facility] CPT-27490 Level 3 Est. Patient 09:21:24 CDT Piotr Daley [facility] CPT-17618 Level 3 Est. Patient 09:21:11 CDT Piotr Daley [facility] CPT-20827 Level 3 Est. Patient 11:16:29 FOUNDRY MOLDER Piotr Daley [facility] CPT-98231 Level 3 Est. Patient 18:40:19 FOUNDRY MOLDER Piotr Daley [facility] CPT-79646 Level 3 Est. Patient 19:30:50 CDT Piotr Daley [facility] CPT-44293 Level 3 Est. Patient 22:06:44 CDT Katrina Rinaldi MD PhD [facility] CPT-82190 Level 3 Est. Patient 14:20:00 CDT Piotr Daley [facility] CPT-60982 Level 3 Est. Patient 14:15:22 FOUNDRY MOLDER Piotr Daley [facility] CPT-89643 Level 3 Est. Patient 20:19:57 FOUNDRY MOLDER Piotr Daley [facility] CPT-89375 Level 3 Est. Patient 16:44:32 CDT Piotr Daley [facility] CPT-67919 Level 3 Est. Patient 08:48:46 FOUNDRY MOLDER Piotr Daley [facility] CPT-11577 Level 3 Est. Patient 21:01:21 CDT Piotr Daley [facility] Procedures Code Procedure Name Date Entry Date Standard Description CPT-63951 BMP - LAB USE ONLY 17:19:11 FOUNDRY MOLDER CPT-76526 PT/INR - LAB USE ONLY 17:19:10 FOUNDRY MOLDER CPT-91762 Venipuncture Draw Fee 17:19:10 FOUNDRY MOLDER CPT-63419 PT/INR - LAB USE ONLY 08:12:25 FOUNDRY MOLDER CPT-76120 Venipuncture Draw Fee 08:12:24 FOUNDRY MOLDER CPT-97359 Venipuncture Draw Fee 11:31:07 FOUNDRY MOLDER CPT-40342 TPSA - LAB USE ONLY 11:31:07 FOUNDRY MOLDER CPT-69622 PT/INR - LAB USE ONLY 11:31:07 FOUNDRY MOLDER CPT-G0439 [facility] Annual Wellness Exam 09:59:29 FOUNDRY MOLDER CPT-02173 Creatinine - LAB USE ONLY 14:37:55 FOUNDRY MOLDER CPT-87821 PT/INR - LAB USE ONLY 14:37:55 FOUNDRY MOLDER CPT-91365 Venipuncture Draw Fee 14:37:55 FOUNDRY MOLDER CPT-14372 LS spine comp w obliques - XRAY USE ONLY 12:59:25 FOUNDRY MOLDER CPT-44573 PT/INR - LAB USE ONLY 13:49:20 CDT CPT-81261 Venipuncture Draw Fee 13:49:19 CDT CPT-80027 PT/INR - LAB USE ONLY 15:48:49 CDT CPT-04440 Venipuncture Draw Fee 15:48:49 CDT CPT-90806 Venipuncture Draw Fee 11:31:59 CDT CPT-65181 PT/INR - LAB USE ONLY 11:31:59 CDT CPT-77597 Venipuncture Draw Fee 13:29:15 CDT CPT-31737 Thoracolumbar AP/Lat 15:19:19 FOUNDRY MOLDER CPT-G0438 Initial Annual Wellness Exam 12:18:54 FOUNDRY MOLDER CPT-32886 Knee 3V 09:57:38 CDT CPT-OV Office Visit 15:45:01 FOUNDRY MOLDER CPT-00456 Abd compl w upright 17:10:25 CDT
--- OUTSIDE RECORDS SUMMARY | 2018-07-18 10:08 | XMS REPORT | Clinical Summary ---
Author Author Admin, B[employer] Organization [employer] Address Unknown Phone Unavailable Allergies, Adverse Reactions, [...] Knee pain, left ICD-719.46 Inactive Sirisha Chen [employer] Actinic keratoses ICD-702.0 Inactive Sirisha Chen [employer] Back pain, thoracic region, left ICD-724.1 Inactive Piotr Daley DO Thoracic back pain ICD-724.5 Inactive Sirisha Chen [employer] Back pain lumbar ICD-724.2 Inactive Sirisha Chen [employer] Insect bite ICD-919.4 Inactive Sirisha Chen [employer] Pruritus ICD-698.9 Inactive Sirisha Chen [employer] 04/09 Bronchitis-Acute ICD-466.0 Inactive Sirisha Chen [employer] Dyspnea ICD-786.09 Inactive Sirisha Chen [employer] 05/09 Medication List Medication Instructions Start Date Stop Date Generic Name NDC Status Provider Patient Instruction WARFARIN SODIUM 4 MG ORAL TABLET 1 tablet by mouth daily except 2mg on Saturday and Saturday WARFARIN SODIUM 53555131720 Active Anahy Loja Active MELOXICAM 15 MG ORAL TABLET 1 po q day for pain with food MELOXICAM 58600399294 Active Piotr Daley DO Active PREDNISONE 10 MG ORAL TABLET 1 tablet by mouth daily PREDNISONE 48183800669 No Longer Active Emelyn Norris Active TESSALON PERLES 100 MG ORAL CAPSULE 1-2 tablet by mouth 3 times daily 04/16 BENZONATATE 82425559519 No Longer Active Emelyn Norris Active PREDNISONE 20 MG ORAL TABLET two tabs by mouth today, then one tab by mouth days two and three PREDNISONE 56644989794 No Longer Active Piotr W Edi DO Active CYCLOBENZAPRINE HCL 10 MG ORAL TABLET 1 tablet by mouth three times daily as needed for muscle spasm/pain CYCLOBENZAPRINE HCL 96094990648 Active Piotr Daley DO Active ZITHROMAX 250 MG ORAL TABLET Take two (2 ) tablets day one, then one (1) tablet a day for four (4) more days AZITHROMYCIN 33283303005 No Longer Active Piotr Daley DO Active PROAIR HFA 108 (90 BASE) MCG/ACT INHALATION AEROSOL SOLUTION 1-2 puffs four times a day as needed ALBUTEROL SULFATE 20405793845 No Longer Active Emelyn Norris Active DOXYCYCLINE HYCLATE 100 MG ORAL CAPSULE 1 cap by mouth BID x10 days DOXYCYCLINE HYCLATE 84159152280 No Longer Active Nella Harris APRN Active PREDNISONE 20 MG ORAL TABLET 2 tabs daily for 3 days, 1 tab daily for 3 days, 1/2 tab daily for 2 days PREDNISONE 21065973307 No Longer Active Matthew Rangel MD Active TRAMADOL HCL 50 MG ORAL TABLET 1 po tid with ES Tylenol TRAMADOL HCL 33769292403 No Longer Active Matthew Rangel MD Active GABAPENTIN 300 MG ORAL CAPSULE 1 po q hs for nerve pain GABAPENTIN 56304878508 No Longer Active Matthew Rangel MD Active PREDNISONE 20 MG ORAL TABLET 2 tablets today, then 1 tablet days 2 through 4 PREDNISONE 66536786806 No Longer Active Piotr Daley DO Active AZITHROMYCIN 250 MG ORAL TABLET 2 po qd x 1 day, then 1 po qd x 4 days 07/12 AZITHROMYCIN 28956175535 No Longer Active Piotr Daley DO Active IBUPROFEN 800 MG ORAL TABLET 1 tab every 8 hours as needed 07/12 IBUPROFEN 75260316084 No Longer Active Piotr Daley DO Active LOMOTIL 2.5-0.025 MG ORAL TABLET 1 to 2 four times a day as needed for diarrhea DIPHENOXYLATE-ATROPINE 48574078658 No Longer Active Piotr W Edi DO Active WARFARIN SODIUM 4 MG ORAL TABLET 1 tab every evening WARFARIN SODIUM 98706853202 No Longer Active Piotr Daley DO Active PREDNISONE 20 MG ORAL TABLET 1 tablet twice daily for 2 days, then 1 tablet once daily for 2 days PREDNISONE 02885286261 No Longer Active Piotr Daley DO Active PROMETHAZINE HCL 25 MG ORAL TABLET 1 four times a day as needed for nausea/ vomiting PROMETHAZINE HCL 09199574796 No Longer Active Piotr Daley DO Active TUSSIONEX PENNKINETIC ER 10-8 MG/5ML ORAL SUSPENSION EXTENDED RELEASE 5ml po q12hr PRN Cough HYDROCOD POLST-CHLORPHEN POLST 95502090615 No Longer Active Piotr Daley DO Active AZITHROMYCIN 250 MG ORAL TABLET 2 po qd x 1 day, then 1 po qd x 4 days 10/13 AZITHROMYCIN 70123662473 No Longer Active Piotr Daley DO Active AZITHROMYCIN 250 MG ORAL TABLET 2 po qd x 1 day, then 1 po qd x 4 days 05/07 AZITHROMYCIN 22707596305 No Longer Active Piotr Daley DO Active LISINOPRIL-HYDROCHLOROTHIAZIDE 10-12.5 MG ORAL TABLET 1 tab by mouth daily LISINOPRIL-HYDROCHLOROTHIAZIDE 26827952932 Active Piotr Daley DO Active LISINOPRIL 10 MG ORAL TABLET 1/2-1 tab po every other day LISINOPRIL 66945167882 No Longer Active Piotr Daley DO Active VENTOLIN HFA 108 (90 Base) MCG/ACT INHALATION AEROSOL SOLUTION 2 puffs four times a day PRN cough ALBUTEROL SULFATE 42001196371 No Longer Active Piotr Daley DO Active NYSTATIN-TRIAMCINOLONE 750024-2.1 UNIT/GM-% EXTERNAL CREAM Apply to area BID NYSTATIN-TRIAMCINOLONE 67651122601 No Longer Active Alena Chavira [employer] Active PHISOHEX 3 % LIQD Use Directed HEXACHLOROPHENE 86082754047 No Longer Active Sandra [place] Active AZITHROMYCIN 250 MG ORAL TABLET 2 po qd x 1 day, then 1 po qd x 4 days 10/21 AZITHROMYCIN 88991160494 No Longer Active Katrina Rinaldi MD PhD Active AZITHROMYCIN 250 MG ORAL TABLET 2 po qd x 1 day, then 1 po qd x 4 days 10/16 AZITHROMYCIN 78940382008 No Longer Active Piotr Daley DO Active AZITHROMYCIN 500 MG INTRAVENOUS SOLUTION RECONSTITUTED 1 po q day AZITHROMYCIN 55044553838 No Longer Active Piotr Daley DO Active NYSTATIN-TRIAMCINOLONE 587925-2.1 UNIT/GM-% EXTERNAL CREAM apply bid NYSTATIN-TRIAMCINOLONE 96977867949 No Longer Active Piotr Daley DO Active IBUPROFEN 800 MG ORAL TABLET 1 po q 8 hours prn pain sparinly IBUPROFEN 14386384981 No Longer Active Piotr Daley DO Active VITAMIN D3 5000 UNIT ORAL CAPSULE 1 po daily CHOLECALCIFEROL 54571821450 Active Piotr Daley DO Active IBUPROFEN 800 MG ORAL TABLET 1 po q 8 hours prn pain sparinly IBUPROFEN 800 MG ORAL TABLET 175146 IBUPROFEN Inactive NYSTATIN-TRIAMCINOLONE 394123-6.1 UNIT/GM-% EXTERNAL CREAM apply bid NYSTATIN-TRIAMCINOLONE 226207-2.1 UNIT/GM-% EXTERNAL CREAM 3583234 NYSTATIN-TRIAMCINOLONE Inactive AZITHROMYCIN 500 MG INTRAVENOUS SOLUTION RECONSTITUTED 1 po q day AZITHROMYCIN 500 MG INTRAVENOUS SOLUTION RECONSTITUTED 91239545985 AZITHROMYCIN Inactive VENTOLIN HFA 108 (90 Base) MCG/ACT INHALATION AEROSOL SOLUTION 2 puffs four times a day PRN cough VENTOLIN HFA 108 (90 Base) MCG/ ACT INHALATION AEROSOL SOLUTION ALBUTEROL SULFATE Inactive LISINOPRIL 10 MG ORAL TABLET 1/2-1 tab po every other day LISINOPRIL 10 MG ORAL TABLET 687566 LISINOPRIL Inactive TUSSIONEX PENNKINETIC ER 10-8 MG/5ML ORAL SUSPENSION EXTENDED RELEASE 5ml po q12hr PRN Cough TUSSIONEX PENNKINETIC ER 10-8 MG/5ML ORAL SUSPENSION EXTENDED RELEASE HYDROCOD POLST-CHLORPHEN POLST Inactive PROMETHAZINE HCL 25 MG ORAL TABLET 1 four times a day as needed for nausea/ vomiting PROMETHAZINE HCL 25 MG ORAL TABLET 323068 PROMETHAZINE HCL Inactive PREDNISONE 20 MG ORAL TABLET 1 tablet twice daily for 2 days, then 1 tablet once daily for 2 days PREDNISONE 20 MG ORAL TABLET 838237 PREDNISONE Inactive WARFARIN SODIUM 4 MG ORAL TABLET 1 tab every evening WARFARIN SODIUM 4 MG ORAL TABLET 389816 WARFARIN SODIUM Inactive LOMOTIL 2.5-0.025 MG ORAL TABLET 1 to 2 four times a day as needed for diarrhea LOMOTIL 2.5-0.025 MG ORAL TABLET 6660871 DIPHENOXYLATE-ATROPINE Inactive IBUPROFEN 800 MG ORAL TABLET 1 tab every 8 hours as needed 07/12 IBUPROFEN 800 MG ORAL TABLET 966629 IBUPROFEN Inactive PREDNISONE 20 MG ORAL TABLET 2 tablets today, then 1 tablet days 2 through 4 PREDNISONE 20 MG ORAL TABLET 867245 PREDNISONE Inactive GABAPENTIN 300 MG ORAL CAPSULE 1 po q hs for nerve pain GABAPENTIN 300 MG ORAL CAPSULE 576100 GABAPENTIN Inactive TRAMADOL HCL 50 MG ORAL TABLET 1 po tid with ES Tylenol TRAMADOL HCL 50 MG ORAL TABLET 167471 TRAMADOL HCL Inactive PROAIR HFA 108 (90 BASE) MCG/ACT INHALATION AEROSOL SOLUTION 1-2 puffs four times a day as needed PROAIR HFA 108 (90 BASE) MCG/ACT INHALATION AEROSOL SOLUTION ALBUTEROL SULFATE Inactive PREDNISONE 20 MG ORAL TABLET two tabs by mouth today, then one tab by mouth days two and three PREDNISONE 20 MG ORAL TABLET 546515 PREDNISONE Inactive TESSALON PERLES 100 MG ORAL CAPSULE 1-2 tablet by mouth 3 times daily 04/16 TESSALON PERLES 100 MG ORAL CAPSULE 529011 BENZONATATE Inactive PREDNISONE 10 MG ORAL TABLET 1 tablet by mouth daily PREDNISONE 10 MG ORAL TABLET 841607 PREDNISONE Inactive AZITHROMYCIN 250 MG ORAL TABLET 2 po qd x 1 day, then 1 po qd x 4 days 10/16 AZITHROMYCIN 250 MG ORAL TABLET 591635 AZITHROMYCIN Inactive AZITHROMYCIN 250 MG ORAL TABLET 2 po qd x 1 day, then 1 po qd x 4 days 10/21 AZITHROMYCIN 250 MG ORAL TABLET 445354 AZITHROMYCIN Inactive NYSTATIN-TRIAMCINOLONE 852027-2.1 UNIT/GM-% EXTERNAL CREAM Apply to area BID NYSTATIN-TRIAMCINOLONE 132329-6.1 UNIT/GM-% EXTERNAL CREAM 5203509 NYSTATIN-TRIAMCINOLONE Inactive AZITHROMYCIN 250 MG ORAL TABLET 2 po qd x 1 day, then 1 po qd x 4 days 05/07 AZITHROMYCIN 250 MG ORAL TABLET 257776 AZITHROMYCIN Inactive AZITHROMYCIN 250 MG ORAL TABLET 2 po qd x 1 day, then 1 po qd x 4 days 10/13 AZITHROMYCIN 250 MG ORAL TABLET 389854 AZITHROMYCIN Inactive AZITHROMYCIN 250 MG ORAL TABLET 2 po qd x 1 day, then 1 po qd x 4 days 07/12 AZITHROMYCIN 250 MG ORAL TABLET 878212 AZITHROMYCIN Inactive PREDNISONE 20 MG ORAL TABLET 2 tabs daily for 3 days, 1 tab daily for 3 days, 1/2 tab daily for 2 days PREDNISONE 20 MG ORAL TABLET 728743 PREDNISONE Inactive DOXYCYCLINE HYCLATE 100 MG ORAL CAPSULE 1 cap by mouth BID x10 days DOXYCYCLINE HYCLATE 100 MG ORAL CAPSULE 7108461 DOXYCYCLINE HYCLATE Inactive ZITHROMAX 250 MG ORAL TABLET Take two (2 ) tablets day one, then one (1) tablet a day for four (4) more days ZITHROMAX 250 MG ORAL TABLET 036005 AZITHROMYCIN Inactive Advance Directives Directive Description Start [...] % 11.0-15.0 platelet count 172 THOUSAND/UL 10*3/mm3 000-692 5517/04/12 mean platelet volume 8.6 fL 7.5-12.5 Lab Report: Prothrombin Time Hemochron - Coagulation prothrombin time (patient) 33.0 SECS s 18.9-24.9 Encounters Code Encounter Date Provider Facility CPT-86930 Level 3 Est. Patient 15:59:25 ACCOUNT EXECUTIVE SALES REPRESENTATIVE Piotr Daley [facility] CPT-54444 Level 3 Est. Patient 12:33:59 ACCOUNT EXECUTIVE SALES REPRESENTATIVE Piotr Daley [facility] CPT-52240 Level 3 Est. Patient 15:56:17 ACCOUNT EXECUTIVE SALES REPRESENTATIVE Piotr Daley [facility] CPT-77105 Level 3 Est. Patient 10:34:54 ACCOUNT EXECUTIVE SALES REPRESENTATIVE Piotr Daley [facility] CPT-44240 Level 3 Est. Patient 17:10:19 CDT Nella Harris APRN [facility] CPT-97482 Level 3 Est. Patient 10:48:17 ACCOUNT EXECUTIVE SALES REPRESENTATIVE Matthew Rangel MD [facility] CPT-33934 Level 4 Est. Patient 17:15:07 ACCOUNT EXECUTIVE SALES REPRESENTATIVE Piotr Daley [facility] CPT-69945 Level 3 Est. Patient 12:46:13 ACCOUNT EXECUTIVE SALES REPRESENTATIVE Piotr Daley [facility] CPT-29522 Level 3 Est. Patient 15:14:31 ACCOUNT EXECUTIVE SALES REPRESENTATIVE Piotr Daley [facility] CPT-09510 Level 3 Est. Patient 09:20:13 ACCOUNT EXECUTIVE SALES REPRESENTATIVE Piotr Daley [facility] CPT-26920 Level 3 Est. Patient 09:49:[address] [facility] CPT-52311 Level 3 Est. Patient 16:28:11 CDT Piotr Daley [facility] CPT-20283 Level 3 Est. Patient 12:41:58 ACCOUNT EXECUTIVE SALES REPRESENTATIVE Piotr Daley [facility] CPT-78936 Level 3 Est. Patient 09:21:[address] [facility] CPT-04661 Level 3 Est. Patient 09:21:[address] [facility] CPT-52331 Level 3 Est. Patient 11:16:29 ACCOUNT EXECUTIVE SALES REPRESENTATIVE Piotr Daley [facility] CPT-94921 Level 3 Est. Patient 18:40:19 ACCOUNT EXECUTIVE SALES REPRESENTATIVE Piotr Daley [facility] CPT-64148 Level 3 Est. Patient 19:30:50 CDT Piotr Daley [facility] CPT-18700 Level 3 Est. Patient 22:06:44 CDT Katrina Rinaldi MD PhD [facility] CPT-08967 Level 3 Est. Patient 14:20:00 CDT Piotr Daley [facility] CPT-64170 Level 3 Est. Patient 14:15:22 ACCOUNT EXECUTIVE SALES REPRESENTATIVE Piotr Daley [facility] CPT-25177 Level 3 Est. Patient 20:19:57 ACCOUNT EXECUTIVE SALES REPRESENTATIVE Piotr Daley [facility] CPT-47058 Level 3 Est. Patient 16:44:32 CDT Piotr Daley [facility] CPT-21703 Level 3 Est. Patient 08:48:46 ACCOUNT EXECUTIVE SALES REPRESENTATIVE Piotr Daley [facility] CPT-18956 Level 3 Est. Patient 21:01:21 CDT Piotr Daley [facility] Procedures Code Procedure Name Date Entry Date Standard Description CPT-73658 Sacroiliac jt < 3V - XRAY USE ONLY 16:45:19 [employer] EXEC[employer]IVE SALES REPRESENTATIVE 05/09 CPT-26688 LS spine comp w obliques - XRAY USE ONLY 14:52:26 [facility] CPT-95058 Chest, 2 views 12:55:58 [employer]OUNT EXEC[employer]IVE SALES REPRESENTATIVE CPT-G0439 Subsequent Annual Wellness Exam 10:34:52 [facility] CPT-26903 BMP - LAB USE ONLY 17:19:11 [employer] REPRESENT[employer]IVE CPT-26399 PT/INR - LAB USE ONLY 17:19:10 [facility] CPT-10115 Venipuncture Draw Fee 17:19:10 [facility] CPT-61974 PT/INR - LAB USE ONLY 08:12:25 [facility] CPT-84796 Venipuncture Draw Fee 08:12:24 [employer]EC[employer]IVE SALES REPRESENTATIVE CPT-84227 Venipuncture Draw Fee 11:31:07 ACCOUNT EXECUTIVE SALES REPRESENTATIVE CPT-86580 TPSA - LAB USE ONLY 11:31:07 ACCOUNT EXECUTIVE SALES REPRESENTATIVE CPT-37333 PT/INR - LAB USE ONLY 11:31:07 ACCOUNT EXECUTIVE SALES REPRESENTATIVE CPT-G0439 Subsequent Annual Wellness Exam 09:59:29 [employer]IVE SALES REPRESENTATIVE CPT-55562 Creatinine - LAB USE ONLY 14:37:55 ACCOUNT EXECUTIVE SALES REPRESENTATIVE CPT-19773 PT/INR - LAB USE ONLY 14:37:55 ACCOUNT EXECUTIVE SALES REPRESENTATIVE CPT-78425 Venipuncture Draw Fee 14:37:55 ACCOUNT EXECUTIVE SALES REPRESENTATIVE CPT-44659 LS spine comp w obliques - XRAY USE ONLY 12:59:25 ACCOUNT EXEC[employer]IVE SALES REPRESENTATIVE CPT-43981 PT/INR - LAB USE ONLY 13:49:20 CDT CPT-04563 Venipuncture Draw Fee 13:49:19 CDT CPT-81951 PT/INR - LAB USE ONLY 15:48:49 CDT CPT-30654 Venipuncture Draw Fee 15:48:49 CDT CPT-67666 Venipuncture Draw Fee 11:31:59 CDT CPT-17987 PT/INR - LAB USE ONLY 11:31:59 CDT CPT-40410 Venipuncture Draw Fee 13:29:15 CDT CPT-05626 Thoracolumbar AP/Lat 15:19:19 [employer]OUNT EXEC[employer]IVE SALES REPRESENTATIVE CPT-G0438 Initial Annual Wellness Exam 12:18:54 [employer]OUNT EXEC[employer]IVE SALES REPRESENTATIVE CPT-91786 Knee 3V 09:57:38 CDT CPT-OV Office Visit 15:45:01 ACCOUNT EXECUTIVE SALES REPRESENTATIVE CPT-70336 Abd compl w upright 17:10:25 CDT
--- OUTSIDE RECORDS SUMMARY | 2018-07-18 10:09 | XMS REPORT | Clinical Summary ---
Author Author Admin, [employer] Address Unknown Phone Unavailable Allergies, Adverse Reactions, [...] neoplasm of prostate V10.46 Active Alina Meyers CASING CLEANER Personal history of malignant neoplasm of prostate Coronary artery disease 414.00 Active Alina Meyers APRN Coronary atherosclerosis of unspecified type of vessel, [place] or graft Back pain, thoracic region, left [...] times a day as needed ALBUTEROL SULFATE 63495237211 Active Matthew Rangel MD Active PREDNISONE 20 MG TAB 2 tabs daily for 3 days, 1 tab daily for 3 days, 1/2 tab daily for 2 days PREDNISONE 91886836492 Active Matthew Rangel MD Active TRAMADOL HCL 50 MG TABS 1 po tid with ES Tylenol TRAMADOL HCL 82257737791 No Longer Active Matthew Rangel MD Active GABAPENTIN 300 MG CAPS 1 po q hs for nerve pain GABAPENTIN 52598765337 No Longer Active Matthew Rangel MD Active WARFARIN SODIUM 5 MG TABS 1 tablet daily WARFARIN SODIUM 96302087253 Active Piotr Daley DO Active PREDNISONE 20 MG TAB 2 tablets today, then 1 tablet days 2 through 4 PREDNISONE 14779484735 No Longer Active Piotr Daley DO Active AZITHROMYCIN 250 MG TABS 2 po qd x 1 day, then 1 po qd x 4 days AZITHROMYCIN 38763838479 No Longer Active Piotr Daley DO Active IBUPROFEN 800 MG TABS 1 tab every 8 hours as needed IBUPROFEN 22685970319 No Longer Active Piotr Daley DO Active LOMOTIL 2.5-0.025 MG TAB 1 to 2 four times a day as needed for diarrhea 10/13 DIPHENOXYLATE-ATROPINE 69079667772 No Longer Active Piotr Daley DO Active WARFARIN SODIUM 4 MG TABS 1 tab every evening WARFARIN SODIUM 27479356923 No Longer Active Piotr Daley DO Active PREDNISONE 20 MG TAB 1 tablet twice daily for 2 days, then 1 tablet once daily for 2 days PREDNISONE 97558144405 No Longer Active Pitor Daley DO Active PROMETHAZINE HCL 25 MG TABS 1 four times a day as needed for nausea/vomiting PROMETHAZINE HCL 62314698228 No Longer Active Piotr Daley DO Active TUSSIONEX PENNKINETIC ER 10-8 MG/5ML LQCR 5ml po q12hr PRN Cough HYDROCOD POLST-CHLORPHEN POLST 47818356991 No Longer Active Piotr Daley DO Active AZITHROMYCIN 250 MG TABS 2 po qd x 1 day, then 1 po qd x 4 days AZITHROMYCIN 90073763915 No Longer Active Piotr Daley DO Active AZITHROMYCIN 250 MG TABS 2 po qd x 1 day, then 1 po qd x 4 days AZITHROMYCIN 88637861930 No Longer Active Piotr Daley DO Active LISINOPRIL-HYDROCHLOROTHIAZIDE 10-12.5 MG TABS 1 tab by mouth daily LISINOPRIL-HYDROCHLOROTHIAZIDE 60559513634 Active Simi Meyers Active LISINOPRIL 10 MG TABS 1/2-1 tab po every other day LISINOPRIL 67414481913 No Longer Active Piotr Daley DO Active VENTOLIN HFA 108 (90 BASE) MCG/ACT AERS 2 puffs four times a day PRN cough ALBUTEROL SULFATE 04825712517 No Longer Active Piotr Daley DO Active NYSTATIN-TRIAMCINOLONE 008995-5.1 UNIT/GM-% CREA Apply to area BID NYSTATIN-TRIAMCINOLONE 56893946834 No Longer Active Alena Chavira COLLARETTE SEPARATOR Active PHISOHEX 3 % LIQD Use Directed HEXACHLOROPHENE 81792126432 No Longer Active Sandra Burciagar Active AZITHROMYCIN 250 MG TABS 2 po qd x 1 day, then 1 po qd x 4 days AZITHROMYCIN 81359947908 No Longer Active Katrina Rinaldi MD PhD Active AZITHROMYCIN 250 MG TABS 2 po qd x 1 day, then 1 po qd x 4 days AZITHROMYCIN 87436364871 No Longer Active Piotr Daley DO Active AZITHROMYCIN 500 MG SOLR 1 po q day AZITHROMYCIN 24628929091 No Longer Active Piotr Daley DO Active NYSTATIN-TRIAMCINOLONE 706661-9.1 UNIT/GM-% CREA apply bid 08/19 NYSTATIN-TRIAMCINOLONE 28668100887 No Longer Active Piotr Daley DO Active IBUPROFEN 800 MG TABS 1 po q 8 hours prn pain sparinly IBUPROFEN 87263729598 No Longer Active Piotr Daley DO Active VITAMIN D3 5000 UNIT CAPS 1 po daily CHOLECALCIFEROL 26174964448 Active Piotr Daley DO Active IBUPROFEN 800 MG TABS 1 po q 8 hours prn pain sparinly IBUPROFEN 800 MG TABS 441171 IBUPROFEN Inactive NYSTATIN-TRIAMCINOLONE 874083-8.1 UNIT/GM-% CREA apply bid 08/19 NYSTATIN-TRIAMCINOLONE 929758-0.1 UNIT/GM-% CREA 4937547 NYSTATIN- TRIAMCINOLONE Inactive AZITHROMYCIN 500 MG SOLR 1 po q day AZITHROMYCIN 500 MG SOLR 09245505332 AZITHROMYCIN Inactive VENTOLIN HFA 108 (90 BASE) MCG/ACT AERS 2 puffs four times a day PRN cough VENTOLIN HFA 108 (90 BASE) MCG/ACT AERS ALBUTEROL SULFATE Inactive LISINOPRIL 10 MG TABS 1/2-1 tab po every other day LISINOPRIL 10 MG TABS 831152 LISINOPRIL Inactive TUSSIONEX PENNKINETIC ER 10-8 MG/5ML LQCR 5ml po q12hr PRN Cough TUSSIONEX PENNKINETIC ER 10-8 MG/5ML LQCR HYDROCOD POLST- CHLORPHEN POLST Inactive PROMETHAZINE HCL 25 MG TABS 1 four times a day as needed for nausea/vomiting PROMETHAZINE HCL 25 MG TABS 810340 PROMETHAZINE HCL Inactive PREDNISONE 20 MG TAB 1 tablet twice daily for 2 days, then 1 tablet once daily for 2 days PREDNISONE 20 MG TAB 188656 PREDNISONE Inactive WARFARIN SODIUM 4 MG TABS 1 tab every evening WARFARIN SODIUM 4 MG TABS 160916 WARFARIN SODIUM Inactive LOMOTIL 2.5-0.025 MG TAB 1 to 2 four times a day as needed for diarrhea 10/13 LOMOTIL 2.5-0.025 MG TAB 6603889 DIPHENOXYLATE-ATROPINE Inactive IBUPROFEN 800 MG TABS 1 tab every 8 hours as needed IBUPROFEN 800 MG TABS 112204 IBUPROFEN Inactive PREDNISONE 20 MG TAB 2 tablets today, then 1 tablet days 2 through 4 PREDNISONE 20 MG TAB 926040 PREDNISONE Inactive GABAPENTIN 300 MG CAPS 1 po q hs for nerve pain GABAPENTIN 300 MG CAPS 028041 GABAPENTIN Inactive TRAMADOL HCL 50 MG TABS 1 po tid with ES Tylenol TRAMADOL HCL 50 MG TABS 100702 TRAMADOL HCL Inactive AZITHROMYCIN 250 MG TABS 2 po qd x 1 day, then 1 po qd x 4 days AZITHROMYCIN 250 MG TABS 6285101 AZITHROMYCIN Inactive AZITHROMYCIN 250 MG TABS 2 po qd x 1 day, then 1 po qd x 4 days AZITHROMYCIN 250 MG TABS 1455603 AZITHROMYCIN Inactive NYSTATIN-TRIAMCINOLONE 965596-1.1 UNIT/GM-% CREA Apply to area BID NYSTATIN-TRIAMCINOLONE 036746-7.1 UNIT/GM-% CREA 2534118 NYSTATIN-TRIAMCINOLONE Inactive AZITHROMYCIN 250 MG TABS 2 po qd x 1 day, then 1 po qd x 4 days AZITHROMYCIN 250 MG TABS 7190184 AZITHROMYCIN Inactive AZITHROMYCIN 250 MG TABS 2 po qd x 1 day, then 1 po qd x 4 days AZITHROMYCIN 250 MG TABS 7076358 AZITHROMYCIN Inactive AZITHROMYCIN 250 MG TABS 2 po qd x 1 day, then 1 po qd x 4 days AZITHROMYCIN 250 MG TABS 6008915 AZITHROMYCIN Inactive Advance Directives Directive Description Start [...] Panel - Chemistry sodium, serum 141 mmol/L 468-121 4972/01/24 potassium, serum 4.3 mmol/L 3.5-5.2 chloride, serum 103 mmol/L 98-107 carbon dioxide, venous blood 30.7 mmol/L 21.0-32.0 blood glucose 90 mg/dL 65-110 calcium, serum 8.5 mg/dL 8.5-10.1 urea nitrogen, blood 16 mg/dL 7-18 creatinine, serum 1.09 mg/dL 0.55-1.30 Lab Report: Comp. Metabolic Panel - Chemistry sodium, serum 141 mmol/L 634-737 6598/06/28 carbon dioxide, venous blood 31.0 mmol/L 21.0-32.0 [...] ratio (INR) 2.5 1.0-3.5 prothrombin time (patient) 23.8 SECS s 11.1-13.4 international normalized ratio (INR) 3.2 1.0-3.5 Encounters Code Encounter Date Provider Facility CPT-99926 Level 3 Est. Patient 10:48:17 DIRECTOR OF CORPORATE RESPONSIBILITY Matthew Rangel MD [facility] CPT-64132 Level 4 Est. Patient 17:15:07 DIRECTOR OF CORPORATE RESPONSIBILITY Piotr Wilson Edi [facility] CPT-19119 Level 3 Est. Patient 12:46:13 DIRECTOR OF CORPORATE RESPONSIBILITY Piotr Daley [facility] CPT-31032 Level 3 Est. Patient 15:14:31 DIRECTOR OF CORPORATE RESPONSIBILITY Piotr Daley [facility] CPT-30327 Level 3 Est. Patient 09:20:13 DIRECTOR OF CORPORATE RESPONSIBILITY Piotr Daley [facility] CPT-91778 Level 3 Est. Patient 09:49:40 CDT Piotr Katie Edi [facility] CPT-75869 Level 3 Est. Patient 16:28:11 CDT Piotr Daley [facility] CPT-91462 Level 3 Est. Patient 12:41:58 DIRECTOR OF CORPORATE RESPONSIBILITY Piotr Wilson Edi [facility] CPT-64891 Level 3 Est. Patient 09:21:24 CDT Piotr Daley [facility] CPT-21901 Level 3 Est. Patient 09:21:11 CDT Piotr Wilson [facility] CPT-84507 Level 3 Est. Patient 11:16:29 DIRECTOR OF CORPORATE RESPONSIBILITY Piotr Daley [facility] CPT-86374 Level 3 Est. Patient 18:40:19 DIRECTOR OF CORPORATE RESPONSIBILITY Piotr Daley [facility] CPT-14392 Level 3 Est. Patient 19:30:50 CDT Piotr Daley [facility] CPT-54060 Level 3 Est. Patient 22:06:44 CDT Katrina Rinaldi MD PhD [facility] CPT-86158 Level 3 Est. Patient 14:20:00 CDT Piotr Daley [facility] CPT-22101 Level 3 Est. Patient 14:15:22 DIRECTOR OF CORPORATE RESPONSIBILITY Piotr Daley [facility] CPT-65492 Level 3 Est. Patient 20:19:57 DIRECTOR OF CORPORATE RESPONSIBILITY Piotr Daley [facility] CPT-59214 Level 3 Est. Patient 16:44:32 CDT Piotr Daley [facility] CPT-48391 Level 3 Est. Patient 08:48:46 DIRECTOR OF CORPORATE RESPONSIBILITY Piotr Daley [facility] CPT-13621 Level 3 Est. Patient 21:01:21 CDT Piotr Daley [facility] Procedures Code Procedure Name Date Entry Date Standard Description CPT-55762 BMP - LAB USE ONLY 17:19:11 DIRECTOR OF CORPORATE RESPONSIBILITY CPT-29825 PT/INR - LAB USE ONLY 17:19:10 DIRECTOR OF CORPORATE RESPONSIBILITY CPT-22240 Venipuncture Draw Fee 17:19:10 DIRECTOR OF CORPORATE RESPONSIBILITY CPT-49679 PT/INR - LAB USE ONLY 08:12:25 DIRECTOR OF CORPORATE RESPONSIBILITY CPT-82241 Venipuncture Draw Fee 08:12:24 DIRECTOR OF CORPORATE RESPONSIBILITY CPT-89606 Venipuncture Draw Fee 11:31:07 DIRECTOR OF CORPORATE RESPONSIBILITY CPT-82702 TPSA - LAB USE ONLY 11:31:07 DIRECTOR OF CORPORATE RESPONSIBILITY CPT-90943 PT/INR - LAB USE ONLY 11:31:07 DIRECTOR OF CORPORATE RESPONSIBILITY CPT-G0439 [facility] Annual Wellness Exam 09:59:29 DIRECTOR OF CORPORATE RESPONSIBILITY CPT-26886 Creatinine - LAB USE ONLY 14:37:55 DIRECTOR OF CORPORATE RESPONSIBILITY CPT-83725 PT/INR - LAB USE ONLY 14:37:55 DIRECTOR OF CORPORATE RESPONSIBILITY CPT-10595 Venipuncture Draw Fee 14:37:55 DIRECTOR OF CORPORATE RESPONSIBILITY CPT-82169 LS spine comp w obliques - XRAY USE ONLY 12:59:25 DIRECTOR OF CORPORATE RESPONSIBILITY CPT-92083 PT/INR - LAB USE ONLY 13:49:20 CDT CPT-82637 Venipuncture Draw Fee 13:49:19 CDT CPT-97210 PT/INR - LAB USE ONLY 15:48:49 CDT CPT-02843 Venipuncture Draw Fee 15:48:49 CDT CPT-74382 Venipuncture Draw Fee 11:31:59 CDT CPT-85148 PT/INR - LAB USE ONLY 11:31:59 CDT CPT-31173 Venipuncture Draw Fee 13:29:15 CDT CPT-13390 Thoracolumbar AP/Lat 15:19:19 DIRECTOR OF CORPORATE RESPONSIBILITY CPT-G0438 Initial Annual Wellness Exam 12:18:54 DIRECTOR OF CORPORATE RESPONSIBILITY CPT-45423 Knee 3V 09:57:38 CDT CPT-OV Office Visit 15:45:01 DIRECTOR OF CORPORATE RESPONSIBILITY CPT-72356 Abd compl w upright 17:10:25 CDT
--- OUTSIDE RECORDS SUMMARY | 2018-07-18 10:10 | XMS REPORT | Clinical Summary ---
Author Author Admin, [employer] Address Unknown Phone Unavailable Allergies, Adverse Reactions, [...] times a day as needed ALBUTEROL SULFATE 12686944140 Active aMtthew Rangel MD Active PREDNISONE 20 MG TAB 2 tabs daily for 3 days, 1 tab daily for 3 days, 1/2 tab daily for 2 days PREDNISONE 89834711210 No Longer Active Matthew Rangel MD Active TRAMADOL HCL 50 MG TABS 1 po tid with ES Tylenol TRAMADOL HCL 82485734789 No Longer Active Matthew Rangel MD Active GABAPENTIN 300 MG CAPS 1 po q hs for nerve pain GABAPENTIN 30078068651 No Longer Active Matthew Rangel MD Active WARFARIN SODIUM 5 MG TABS 1 tablet daily WARFARIN SODIUM 86522382066 Active Anahy Loja Active PREDNISONE 20 MG TAB 2 tablets today, then 1 tablet days 2 through 4 PREDNISONE 67063191971 No Longer Active Piotr Daley DO Active AZITHROMYCIN 250 MG TABS 2 po qd x 1 day, then 1 po qd x 4 days AZITHROMYCIN 84992857240 No Longer Active Piotr Daley DO Active IBUPROFEN 800 MG TABS 1 tab every 8 hours as needed IBUPROFEN 73827388220 No Longer Active Piotr Daley DO Active LOMOTIL 2.5-0.025 MG TAB 1 to 2 four times a day as needed for diarrhea 10/13 DIPHENOXYLATE-ATROPINE 74944534656 No Longer Active Piotr Daley DO Active WARFARIN SODIUM 4 MG TABS 1 tab every evening WARFARIN SODIUM 63642870668 No Longer Active Piotr Daley DO Active PREDNISONE 20 MG TAB 1 tablet twice daily for 2 days, then 1 tablet once daily for 2 days PREDNISONE 99030344022 No Longer Active Piotr Daley DO Active PROMETHAZINE HCL 25 MG TABS 1 four times a day as needed for nausea/vomiting PROMETHAZINE HCL 74828358324 No Longer Active Piotr Daley DO Active TUSSIONEX PENNKINETIC ER 10-8 MG/5ML LQCR 5ml po q12hr PRN Cough HYDROCOD POLST-CHLORPHEN POLST 22879875579 No Longer Active Piotr Daley DO Active AZITHROMYCIN 250 MG TABS 2 po qd x 1 day, then 1 po qd x 4 days AZITHROMYCIN 99141332246 No Longer Active Piotr Daley DO Active AZITHROMYCIN 250 MG TABS 2 po qd x 1 day, then 1 po qd x 4 days AZITHROMYCIN 33408473741 No Longer Active Piotr Dlaey DO Active LISINOPRIL-HYDROCHLOROTHIAZIDE 10-12.5 MG TABS 1 tab by mouth daily LISINOPRIL-HYDROCHLOROTHIAZIDE 98422183975 Active Catalina Freitas Active LISINOPRIL 10 MG TABS 1/2-1 tab po every other day LISINOPRIL 00241114664 No Longer Active Piotr Daley DO Active VENTOLIN HFA 108 (90 BASE) MCG/ACT AERS 2 puffs four times a day PRN cough ALBUTEROL SULFATE 61219189423 No Longer Active Piotr Daley DO Active NYSTATIN-TRIAMCINOLONE 765274-8.1 UNIT/GM-% CREA Apply to area BID NYSTATIN-TRIAMCINOLONE 32176842518 No Longer Active Alena Chavira TROUBLE OPERATOR Active PHISOHEX 3 % LIQD Use Directed HEXACHLOROPHENE 48094591254 No Longer Active Sandra Dentarger Active AZITHROMYCIN 250 MG TABS 2 po qd x 1 day, then 1 po qd x 4 days AZITHROMYCIN 55176032492 No Longer Active Katrina Rinaldi MD PhD Active AZITHROMYCIN 250 MG TABS 2 po qd x 1 day, then 1 po qd x 4 days AZITHROMYCIN 26016338482 No Longer Active Piotr Daley DO Active AZITHROMYCIN 500 MG SOLR 1 po q day AZITHROMYCIN 45225828534 No Longer Active Piotr Daley DO Active NYSTATIN-TRIAMCINOLONE 359917-4.1 UNIT/GM-% CREA apply bid 08/19 NYSTATIN-TRIAMCINOLONE 61672774452 No Longer Active Piotr Daley DO Active IBUPROFEN 800 MG TABS 1 po q 8 hours prn pain sparinly IBUPROFEN 40128427341 No Longer Active Piotr Daley DO Active VITAMIN D3 5000 UNIT CAPS 1 po daily CHOLECALCIFEROL 08828039186 Active Piotr Daley DO Active IBUPROFEN 800 MG TABS 1 po q 8 hours prn pain sparinly IBUPROFEN 800 MG TABS 700949 IBUPROFEN Inactive NYSTATIN-TRIAMCINOLONE 872360-4.1 UNIT/GM-% CREA apply bid 08/19 NYSTATIN-TRIAMCINOLONE 285280-7.1 UNIT/GM-% CREA 2402245 NYSTATIN- TRIAMCINOLONE Inactive AZITHROMYCIN 500 MG SOLR 1 po q day AZITHROMYCIN 500 MG SOLR 18566105944 AZITHROMYCIN Inactive VENTOLIN HFA 108 (90 BASE) MCG/ACT AERS 2 puffs four times a day PRN cough VENTOLIN HFA 108 (90 BASE) MCG/ACT AERS ALBUTEROL SULFATE Inactive LISINOPRIL 10 MG TABS 1/2-1 tab po every other day LISINOPRIL 10 MG TABS 375807 LISINOPRIL Inactive TUSSIONEX PENNKINETIC ER 10-8 MG/5ML LQCR 5ml po q12hr PRN Cough TUSSIONEX PENNKINETIC ER 10-8 MG/5ML LQCR HYDROCOD POLST- CHLORPHEN POLST Inactive PROMETHAZINE HCL 25 MG TABS 1 four times a day as needed for nausea/vomiting PROMETHAZINE HCL 25 MG TABS 656391 PROMETHAZINE HCL Inactive PREDNISONE 20 MG TAB 1 tablet twice daily for 2 days, then 1 tablet once daily for 2 days PREDNISONE 20 MG TAB 431894 PREDNISONE Inactive WARFARIN SODIUM 4 MG TABS 1 tab every evening WARFARIN SODIUM 4 MG TABS 326923 WARFARIN SODIUM Inactive LOMOTIL 2.5-0.025 MG TAB 1 to 2 four times a day as needed for diarrhea 10/13 LOMOTIL 2.5-0.025 MG TAB 5003876 DIPHENOXYLATE-ATROPINE Inactive IBUPROFEN 800 MG TABS 1 tab every 8 hours as needed IBUPROFEN 800 MG TABS 632120 IBUPROFEN Inactive PREDNISONE 20 MG TAB 2 tablets today, then 1 tablet days 2 through 4 PREDNISONE 20 MG TAB 772251 PREDNISONE Inactive GABAPENTIN 300 MG CAPS 1 po q hs for nerve pain GABAPENTIN 300 MG CAPS 714411 GABAPENTIN Inactive TRAMADOL HCL 50 MG TABS 1 po tid with ES Tylenol TRAMADOL HCL 50 MG TABS 314530 TRAMADOL HCL Inactive AZITHROMYCIN 250 MG TABS 2 po qd x 1 day, then 1 po qd x 4 days AZITHROMYCIN 250 MG TABS 4083951 AZITHROMYCIN Inactive AZITHROMYCIN 250 MG TABS 2 po qd x 1 day, then 1 po qd x 4 days AZITHROMYCIN 250 MG TABS 8861561 AZITHROMYCIN Inactive NYSTATIN-TRIAMCINOLONE 967134-5.1 UNIT/GM-% CREA Apply to area BID NYSTATIN-TRIAMCINOLONE 200382-0.1 UNIT/GM-% CREA 7186186 NYSTATIN-TRIAMCINOLONE Inactive AZITHROMYCIN 250 MG TABS 2 po qd x 1 day, then 1 po qd x 4 days AZITHROMYCIN 250 MG TABS 3768574 AZITHROMYCIN Inactive AZITHROMYCIN 250 MG TABS 2 po qd x 1 day, then 1 po qd x 4 days AZITHROMYCIN 250 MG TABS 3522631 AZITHROMYCIN Inactive AZITHROMYCIN 250 MG TABS 2 po qd x 1 day, then 1 po qd x 4 days AZITHROMYCIN 250 MG TABS 5834262 AZITHROMYCIN Inactive PREDNISONE 20 MG TAB 2 tabs daily for 3 days, 1 tab daily for 3 days, 1/2 tab daily for 2 days PREDNISONE 20 MG TAB 579963 PREDNISONE Inactive Advance Directives Directive Description Start [...] Panel - Chemistry sodium, serum 141 mmol/L 208-784 5232/01/24 potassium, serum 4.3 mmol/L 3.5-5.2 chloride, serum [...] % 11.0-15.0 platelet count 172 THOUSAND/UL 10*3/mm3 029-582 4045/04/12 mean platelet volume 8.6 fL 7.5-12.5 Lab Report: Comp. Metabolic Panel - Chemistry sodium, serum 141 mmol/L 477-130 4388/06/28 carbon dioxide, venous blood 31.0 mmol/L 21.0-32.0 [...] ratio (INR) 4.2 1.0-3.5 prothrombin time (patient) 18.1 SECS s [...] (INR) 3.0 1.0-3.5 international normalized ratio (INR) 3.3 1.0-3.5 prothrombin time (patient) 24.3 SECS s 11.1-13.4 Encounters Code Encounter Date Provider Facility CPT-15508 Level 3 Est. Patient 10:48:17 FURRIER APPRENTICE Matthew Rangel MD [facility] CPT-30934 Level 4 Est. Patient 17:15:07 FURRIER APPRENTICE Piotr Daley [facility] CPT-16561 Level 3 Est. Patient 12:46:13 FURRIER APPRENTICE Piotr Daley [facility] CPT-87075 Level 3 Est. Patient 15:14:31 FURRIER APPRENTICE Piotr Daley [facility] CPT-27689 Level 3 Est. Patient 09:20:13 FURRIER APPRENTICE Piotr Daley [facility] CPT-32606 Level 3 Est. Patient 09:49:40 CDT Piotr Wilson [facility] CPT-05690 Level 3 Est. Patient 16:28:11 CDT Piotr Daley [facility] CPT-79525 Level 3 Est. Patient 12:41:58 FURRIER APPRENTICE Piotr Daley [facility] CPT-81019 Level 3 Est. Patient 09:21:24 CDT Piotr Daley [facility] CPT-07337 Level 3 Est. Patient 09:21:11 CDT Piotr Daley [facility] CPT-57216 Level 3 Est. Patient 11:16:29 FURRIER APPRENTICE Piotr Daley [facility] CPT-08913 Level 3 Est. Patient 18:40:19 FURRIER APPRENTICE Piotr Daley [facility] CPT-16469 Level 3 Est. Patient 19:30:50 CDT Piotr Daley [facility] CPT-86235 Level 3 Est. Patient 22:06:44 CDT Katrina Rinaldi MD [facility] CPT-91276 Level 3 Est. Patient 14:20:00 CDT Piotr Daley [facility] CPT-34085 Level 3 Est. Patient 14:15:22 FURRIER APPRENTICE Piotr Daley [facility] CPT-71233 Level 3 Est. Patient 20:19:57 FURRIER APPRENTICE Piotr Daley [facility] CPT-70540 Level 3 Est. Patient 16:44:32 CDT Piotr Daley [facility] CPT-53286 Level 3 Est. Patient 08:48:46 FURRIER APPRENTICE Piotr Daley [facility] CPT-34147 Level 3 Est. Patient 21:01:21 CDT Piotr Daley [facility] Procedures Code Procedure Name Date Entry Date Standard Description CPT-06150 BMP - LAB USE ONLY 17:19:11 FURRIER APPRENTICE CPT-82466 PT/INR - LAB USE ONLY 17:19:10 FURRIER APPRENTICE CPT-26871 Venipuncture Draw Fee 17:19:10 FURRIER APPRENTICE CPT-38696 PT/INR - LAB USE ONLY 08:12:25 FURRIER APPRENTICE CPT-88437 Venipuncture Draw Fee 08:12:24 FURRIER APPRENTICE CPT-97346 Venipuncture Draw Fee 11:31:07 FURRIER APPRENTICE CPT-27412 TPSA - LAB USE ONLY 11:31:07 FURRIER APPRENTICE CPT-83658 PT/INR - LAB USE ONLY 11:31:07 FURRIER APPRENTICE CPT-G0439 [facility] Annual Wellness Exam 09:59:29 FURRIER APPRENTICE CPT-32655 Creatinine - LAB USE ONLY 14:37:55 FURRIER APPRENTICE CPT-19069 PT/INR - LAB USE ONLY 14:37:55 FURRIER APPRENTICE CPT-04367 Venipuncture Draw Fee 14:37:55 FURRIER APPRENTICE CPT-90976 LS spine comp w obliques - XRAY USE ONLY 12:59:25 FURRIER APPRENTICE CPT-19925 PT/INR - LAB USE ONLY 13:49:20 CDT CPT-71856 Venipuncture Draw Fee 13:49:19 CDT CPT-25220 PT/INR - LAB USE ONLY 15:48:49 CDT CPT-36519 Venipuncture Draw Fee 15:48:49 CDT CPT-77960 Venipuncture Draw Fee 11:31:59 CDT CPT-05966 PT/INR - LAB USE ONLY 11:31:59 CDT CPT-55519 Venipuncture Draw Fee 13:29:15 CDT CPT-02678 Thoracolumbar AP/Lat 15:19:19 FURRIER APPRENTICE CPT-G0438 Initial Annual Wellness Exam 12:18:54 FURRIER APPRENTICE CPT-66104 Knee 3V 09:57:38 CDT CPT-OV Office Visit 15:45:01 FURRIER APPRENTICE CPT-23987 Abd compl w upright 17:10:25 CDT
--- OUTSIDE RECORDS SUMMARY | 2018-07-18 10:11 | XMS REPORT | Clinical Summary ---
Author Author Admin, Bita Organization [facility] Address Unknown Phone Unavailable Allergies, Adverse Reactions, [...] Coronary atherosclerosis of unspecified type of vessel, [place] or graft Back pain, thoracic region, [...] PhD Seborrheic keratosis ICD-702.19 Inactive Sirisha Chen CORE MANAGER Bronchitis-Acute ICD-466.0 Inactive Piotr Daley DO Leg pain, right ICD-729.5 Inactive Sirisha Chen CORE MANAGER Right leg pain ICD-729.5 Inactive Sirisha Chen CORE MANAGER Bronchitis-Acute ICD-466.0 Inactive Sirisha Chen CORE MANAGER Knee pain, left ICD-719.46 Inactive Sirisha Chen CORE MANAGER Actinic keratoses ICD-702.0 Inactive Sirisha Chen CORE MANAGER Back pain, thoracic region, left ICD-724.1 Inactive Piotr Daley DO Thoracic back pain ICD-724.5 Inactive Sirisha Chen CORE MANAGER Back pain lumbar ICD-724.2 Inactive Sirisha Chen CORE MANAGER Insect bite ICD-919.4 Inactive Sirisha Chen CORE MANAGER Pruritus ICD-698.9 Inactive Sirisha Chen CORE MANAGER 04/09 DEEP VENOUS THROMBOPHLEBITIS, LEG, 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 Inactive Sirisha Chen CORE MANAGER DEEP VENOUS THROMBOPHLEBITIS, LEG, 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 Inactive Sirisha Chen CORE MANAGER Bronchitis-Acute ICD-466.0 Inactive Sirisha Chen CORE MANAGER Dyspnea ICD-786.09 Inactive Sirisha Chen CORE MANAGER 05/09 Medication List Medication Instructions Start Date Stop Date Generic Name NDC Status Provider Patient Instruction WARFARIN SODIUM 4 MG ORAL TABLET 1 tablet by mouth daily except 2mg on Saturday and Saturday WARFARIN SODIUM 88495317124 Active Anahy Loja Active MELOXICAM 15 MG ORAL TABLET 1 po q day for pain with food MELOXICAM 29744312488 Active Piotr Daley DO Active PREDNISONE 10 MG ORAL TABLET 1 tablet by mouth daily PREDNISONE 42111085832 No Longer Active Emelyn Norris Active TESSALON PERLES 100 MG ORAL CAPSULE 1-2 tablet by mouth 3 times daily 04/16 BENZONATATE 51658484397 No Longer Active Emelyn Norris Active PREDNISONE 20 MG ORAL TABLET two tabs by mouth today, then one tab by mouth days two and three PREDNISONE 98227034031 No Longer Active Piotr W Edi DO Active CYCLOBENZAPRINE HCL 10 MG ORAL TABLET 1 tablet by mouth three times daily as needed for muscle spasm/pain CYCLOBENZAPRINE HCL 09526846325 Active Sirisha Chen LPN Active ZITHROMAX 250 MG ORAL TABLET Take two (2 ) tablets day one, then one (1) tablet a day for four (4) more days AZITHROMYCIN 58852269626 No Longer Active Piotr Daley DO Active PROAIR HFA 108 (90 BASE) MCG/ACT INHALATION AEROSOL SOLUTION 1-2 puffs four times a day as needed ALBUTEROL SULFATE 78672657074 No Longer Active Emelyn Norris Active DOXYCYCLINE HYCLATE 100 MG ORAL CAPSULE 1 cap by mouth BID x10 days DOXYCYCLINE HYCLATE 46710579138 No Longer Active Nella Harris APRN Active PREDNISONE 20 MG ORAL TABLET 2 tabs daily for 3 days, 1 tab daily for 3 days, 1/2 tab daily for 2 days PREDNISONE 07038666538 No Longer Active Matthew Rangel MD Active TRAMADOL HCL 50 MG ORAL TABLET 1 po tid with ES Tylenol TRAMADOL HCL 99323954051 No Longer Active Matthew Rangel MD Active GABAPENTIN 300 MG ORAL CAPSULE 1 po q hs for nerve pain GABAPENTIN 71273193099 No Longer Active Matthew Rangel MD Active PREDNISONE 20 MG ORAL TABLET 2 tablets today, then 1 tablet days 2 through 4 PREDNISONE 32324291059 No Longer Active Piotr Daley DO Active AZITHROMYCIN 250 MG ORAL TABLET 2 po qd x 1 day, then 1 po qd x 4 days 07/12 AZITHROMYCIN 16604736633 No Longer Active Piotr Daley DO Active IBUPROFEN 800 MG ORAL TABLET 1 tab every 8 hours as needed 07/12 IBUPROFEN 78151815711 No Longer Active Piotr Daley DO Active LOMOTIL 2.5-0.025 MG ORAL TABLET 1 to 2 four times a day as needed for diarrhea DIPHENOXYLATE-ATROPINE 98574010378 No Longer Active Piotr Daley DO Active WARFARIN SODIUM 4 MG ORAL TABLET 1 tab every evening WARFARIN SODIUM 86696506185 No Longer Active Piotr Daley DO Active PREDNISONE 20 MG ORAL TABLET 1 tablet twice daily for 2 days, then 1 tablet once daily for 2 days PREDNISONE 12150371756 No Longer Active Piotr Daley DO Active PROMETHAZINE HCL 25 MG ORAL TABLET 1 four times a day as needed for nausea/ vomiting PROMETHAZINE HCL 07234353430 No Longer Active Piotr Daley DO Active TUSSIONEX PENNKINETIC ER 10-8 MG/5ML ORAL SUSPENSION EXTENDED RELEASE 5ml po q12hr PRN Cough HYDROCOD POLST-CHLORPHEN POLST 43736790612 No Longer Active Piotr Daley DO Active AZITHROMYCIN 250 MG ORAL TABLET 2 po qd x 1 day, then 1 po qd x 4 days 10/13 AZITHROMYCIN 17461790831 No Longer Active Piotr Daley DO Active AZITHROMYCIN 250 MG ORAL TABLET 2 po qd x 1 day, then 1 po qd x 4 days 05/07 AZITHROMYCIN 78198540678 No Longer Active Piotr Daley DO Active LISINOPRIL-HYDROCHLOROTHIAZIDE 10-12.5 MG ORAL TABLET 1 tab by mouth daily LISINOPRIL-HYDROCHLOROTHIAZIDE 73885694784 Active Piotr Daley DO Active LISINOPRIL 10 MG ORAL TABLET 1/2-1 tab po every other day LISINOPRIL 82268212475 No Longer Active Piotr Daley DO Active VENTOLIN HFA 108 (90 Base) MCG/ACT INHALATION AEROSOL SOLUTION 2 puffs four times a day PRN cough ALBUTEROL SULFATE 55317298412 No Longer Active Piotr Daley DO Active NYSTATIN-TRIAMCINOLONE 897665-1.1 UNIT/GM-% EXTERNAL CREAM Apply to area BID NYSTATIN-TRIAMCINOLONE 90811217793 No Longer Active Alena Chavira CORE MANAGER Active PHISOHEX 3 % LIQD Use Directed HEXACHLOROPHENE 72097388637 No Longer Active Sandra Socorro Active AZITHROMYCIN 250 MG ORAL TABLET 2 po qd x 1 day, then 1 po qd x 4 days 10/21 AZITHROMYCIN 53540544782 No Longer Active Katrina Rinaldi MD PhD Active AZITHROMYCIN 250 MG ORAL TABLET 2 po qd x 1 day, then 1 po qd x 4 days 10/16 AZITHROMYCIN 05443652729 No Longer Active Piotr Daley DO Active AZITHROMYCIN 500 MG INTRAVENOUS SOLUTION RECONSTITUTED 1 po q day AZITHROMYCIN 87281960754 No Longer Active Piotr Daley DO Active NYSTATIN-TRIAMCINOLONE 299105-8.1 UNIT/GM-% EXTERNAL CREAM apply bid NYSTATIN-TRIAMCINOLONE 34757267400 No Longer Active Piotr Daley DO Active IBUPROFEN 800 MG ORAL TABLET 1 po q 8 hours prn pain sparinly IBUPROFEN 19861481707 No Longer Active Piotr Daley DO Active VITAMIN D3 5000 UNIT ORAL CAPSULE 1 po daily CHOLECALCIFEROL 77578673457 Active Piotr Daley DO Active IBUPROFEN 800 MG ORAL TABLET 1 po q 8 hours prn pain sparinly IBUPROFEN 800 MG ORAL TABLET 292439 IBUPROFEN Inactive NYSTATIN-TRIAMCINOLONE 327098-2.1 UNIT/GM-% EXTERNAL CREAM apply bid NYSTATIN-TRIAMCINOLONE 296060-6.1 UNIT/GM-% EXTERNAL CREAM 6521479 NYSTATIN-TRIAMCINOLONE Inactive AZITHROMYCIN 500 MG INTRAVENOUS SOLUTION RECONSTITUTED 1 po q day AZITHROMYCIN 500 MG INTRAVENOUS SOLUTION RECONSTITUTED 11821889349 AZITHROMYCIN Inactive VENTOLIN HFA 108 (90 Base) MCG/ACT INHALATION AEROSOL SOLUTION 2 puffs four times a day PRN cough VENTOLIN HFA 108 (90 Base) MCG/ ACT INHALATION AEROSOL SOLUTION ALBUTEROL SULFATE Inactive LISINOPRIL 10 MG ORAL TABLET 1/2-1 tab po every other day LISINOPRIL 10 MG ORAL TABLET 079938 LISINOPRIL Inactive TUSSIONEX PENNKINETIC ER 10-8 MG/5ML ORAL SUSPENSION EXTENDED RELEASE 5ml po q12hr PRN Cough TUSSIONEX PENNKINETIC ER 10-8 MG/5ML ORAL SUSPENSION EXTENDED RELEASE HYDROCOD POLST-CHLORPHEN POLST Inactive PROMETHAZINE HCL 25 MG ORAL TABLET 1 four times a day as needed for nausea/ vomiting PROMETHAZINE HCL 25 MG ORAL TABLET 726288 PROMETHAZINE HCL Inactive PREDNISONE 20 MG ORAL TABLET 1 tablet twice daily for 2 days, then 1 tablet once daily for 2 days PREDNISONE 20 MG ORAL TABLET 929861 PREDNISONE Inactive WARFARIN SODIUM 4 MG ORAL TABLET 1 tab every evening WARFARIN SODIUM 4 MG ORAL TABLET 156355 WARFARIN SODIUM Inactive LOMOTIL 2.5-0.025 MG ORAL TABLET 1 to 2 four times a day as needed for diarrhea LOMOTIL 2.5-0.025 MG ORAL TABLET 9252674 DIPHENOXYLATE-ATROPINE Inactive IBUPROFEN 800 MG ORAL TABLET 1 tab every 8 hours as needed 07/12 IBUPROFEN 800 MG ORAL TABLET 978936 IBUPROFEN Inactive PREDNISONE 20 MG ORAL TABLET 2 tablets today, then 1 tablet days 2 through 4 PREDNISONE 20 MG ORAL TABLET 769498 PREDNISONE Inactive GABAPENTIN 300 MG ORAL CAPSULE 1 po q hs for nerve pain GABAPENTIN 300 MG ORAL CAPSULE 107465 GABAPENTIN Inactive TRAMADOL HCL 50 MG ORAL TABLET 1 po tid with ES Tylenol TRAMADOL HCL 50 MG ORAL TABLET 970309 TRAMADOL HCL Inactive PROAIR HFA 108 (90 BASE) MCG/ACT INHALATION AEROSOL SOLUTION 1-2 puffs four times a day as needed PROAIR HFA 108 (90 BASE) MCG/ACT INHALATION AEROSOL SOLUTION ALBUTEROL SULFATE Inactive PREDNISONE 20 MG ORAL TABLET two tabs by mouth today, then one tab by mouth days two and three PREDNISONE 20 MG ORAL TABLET 818089 PREDNISONE Inactive TESSALON PERLES 100 MG ORAL CAPSULE 1-2 tablet by mouth 3 times daily 04/16 TESSALON PERLES 100 MG ORAL CAPSULE 054652 BENZONATATE Inactive PREDNISONE 10 MG ORAL TABLET 1 tablet by mouth daily PREDNISONE 10 MG ORAL TABLET 066501 PREDNISONE Inactive AZITHROMYCIN 250 MG ORAL TABLET 2 po qd x 1 day, then 1 po qd x 4 days 10/16 AZITHROMYCIN 250 MG ORAL TABLET 727493 AZITHROMYCIN Inactive AZITHROMYCIN 250 MG ORAL TABLET 2 po qd x 1 day, then 1 po qd x 4 days 10/21 AZITHROMYCIN 250 MG ORAL TABLET 888972 AZITHROMYCIN Inactive NYSTATIN-TRIAMCINOLONE 602467-7.1 UNIT/GM-% EXTERNAL CREAM Apply to area BID NYSTATIN-TRIAMCINOLONE 513902-4.1 UNIT/GM-% EXTERNAL CREAM 4813760 NYSTATIN-TRIAMCINOLONE Inactive AZITHROMYCIN 250 MG ORAL TABLET 2 po qd x 1 day, then 1 po qd x 4 days 05/07 AZITHROMYCIN 250 MG ORAL TABLET 085686 AZITHROMYCIN Inactive AZITHROMYCIN 250 MG ORAL TABLET 2 po qd x 1 day, then 1 po qd x 4 days 10/13 AZITHROMYCIN 250 MG ORAL TABLET 169504 AZITHROMYCIN Inactive AZITHROMYCIN 250 MG ORAL TABLET 2 po qd x 1 day, then 1 po qd x 4 days 07/12 AZITHROMYCIN 250 MG ORAL TABLET 035161 AZITHROMYCIN Inactive PREDNISONE 20 MG ORAL TABLET 2 tabs daily for 3 days, 1 tab daily for 3 days, 1/2 tab daily for 2 days PREDNISONE 20 MG ORAL TABLET 823017 PREDNISONE Inactive DOXYCYCLINE HYCLATE 100 MG ORAL CAPSULE 1 cap by mouth BID x10 days DOXYCYCLINE HYCLATE 100 MG ORAL CAPSULE 7900876 DOXYCYCLINE HYCLATE Inactive ZITHROMAX 250 MG ORAL TABLET Take two (2 ) tablets day one, then one (1) tablet a day for four (4) more days ZITHROMAX 250 MG ORAL TABLET 213435 AZITHROMYCIN Inactive Advance Directives Directive Description Start [...] % 11.0-15.0 platelet count 172 THOUSAND/UL 10*3/mm3 808-018 2809/04/12 mean platelet volume 8.6 fL 7.5-12.5 mean corpuscular volume, RBC 83.9 fL 80.0-100.0 hematocrit, blood 43.0 % 38.5-50.0 hemoglobin, blood 14.4 g/dL 13.2-17.1 erythrocyte (RBC) count 5.13 MILLION/UL 10*6/mm3 4.20-5.80 leukocyte count, blood 5.4 THOUSAND/UL 10*3/mm3 3.8-10.8 Lab Report: Prothrombin Time Hemochron - Coagulation prothrombin time (patient) 33.0 SECS s 18.9-24.9 Encounters Code Encounter Date Provider Facility CPT-17831 Level 3 Est. Patient 15:59:25 CUSTOMER OPERATIONS MANAGER Piotr Daley [facility] CPT-81999 Level 3 Est. Patient 12:33:59 CUSTOMER OPERATIONS MANAGER Piotr Daley [facility] CPT-59453 Level 3 Est. Patient 15:56:17 CUSTOMER OPERATIONS MANAGER Piotr Daley [facility] CPT-76758 Level 3 Est. Patient 10:34:54 CUSTOMER OPERATIONS MANAGER Piotr Daley [facility] CPT-34028 Level 3 Est. Patient 17:10:19 CDT Nella Harris APRN [facility] CPT-63063 Level 3 Est. Patient 10:48:17 CUSTOMER OPERATIONS MANAGER Matthew Rangel MD [facility] CPT-57775 Level 4 Est. Patient 17:15:07 CUSTOMER OPERATIONS MANAGER Piotr Daley [facility] CPT-71910 Level 3 Est. Patient 12:46:13 CUSTOMER OPERATIONS MANAGER Piotr Daley [facility] CPT-53939 Level 3 Est. Patient 15:14:31 CUSTOMER OPERATIONS MANAGER Piotr Katie Daley [facility] CPT-07498 Level 3 Est. Patient 09:20:13 CUSTOMER OPERATIONS MANAGER Piotr Katie Daley [facility] CPT-77069 Level 3 Est. Patient 09:49:40 CDT Piotr Katie Daley [facility] CPT-48513 Level 3 Est. Patient 16:28:11 CDT Piotr Daley [facility] CPT-92859 Level 3 Est. Patient 12:41:58 CUSTOMER OPERATIONS MANAGER Piotr Daley [facility] CPT-89955 Level 3 Est. Patient 09:21:24 CDT Piotr Daley [facility] CPT-63267 Level 3 Est. Patient 09:21:11 CDT Piotr Daley [facility] CPT-03625 Level 3 Est. Patient 11:16:29 CUSTOMER OPERATIONS MANAGER Piotr Katie Daley [facility] CPT-62235 Level 3 Est. Patient 18:40:19 CUSTOMER OPERATIONS MANAGER Piotr Daley [facility] CPT-91515 Level 3 Est. Patient 19:30:50 CDT Piotr Daley [facility] CPT-55290 Level 3 Est. Patient 22:06:44 CDT Katrina Rinaldi MD [facility] CPT-17897 Level 3 Est. Patient 14:20:00 CDT Piotr Daley [facility] CPT-38591 Level 3 Est. Patient 14:15:22 CUSTOMER OPERATIONS MANAGER Piotr Daley [facility] CPT-91114 Level 3 Est. Patient 20:19:57 CUSTOMER OPERATIONS MANAGER Piotr Daley [facility] CPT-30815 Level 3 Est. Patient 16:44:32 CDT Piotr Daley [facility] CPT-44512 Level 3 Est. Patient 08:48:46 CUSTOMER OPERATIONS MANAGER Piotr Daley [facility] CPT-74139 Level 3 Est. Patient 21:01:21 CDT Piotr Daley DO [facility] Procedures Code Procedure Name Date Entry Date Standard Description CPT-81748 Sacroiliac jt < 3V - XRAY USE ONLY 16:45:19 CUSTOMER OPERATIONS MANAGER 05/09 CPT-07551 LS spine comp w obliques - XRAY USE ONLY 14:52:26 CUSTOMER OPERATIONS MANAGER CPT-96440 Chest, 2 views 12:55:58 CUSTOMER OPERATIONS MANAGER CPT-G0439 Subsequent Annual Wellness Exam 10:34:52 CUSTOMER OPERATIONS MANAGER CPT-00814 BMP - LAB USE ONLY 17:19:11 CUSTOMER OPERATIONS MANAGER CPT-26578 PT/INR - LAB USE ONLY 17:19:10 CUSTOMER OPERATIONS MANAGER CPT-03657 Venipuncture Draw Fee 17:19:10 CUSTOMER OPERATIONS MANAGER CPT-22414 PT/INR - LAB USE ONLY 08:12:25 CUSTOMER OPERATIONS MANAGER CPT-87780 Venipuncture Draw Fee 08:12:24 CUSTOMER OPERATIONS MANAGER CPT-95988 Venipuncture Draw Fee 11:31:07 CUSTOMER OPERATIONS MANAGER CPT-37434 TPSA - LAB USE ONLY 11:31:07 [facility] CPT-52348 PT/INR - LAB USE ONLY 11:31:07 CUSTOMER OPERATIONS MANAGER CPT-G0439 Subsequent Annual Wellness Exam 09:59:29 CUSTOMER OPERATIONS MANAGER CPT-14581 Creatinine - LAB USE ONLY 14:37:55 CUSTOMER OPERATIONS MANAGER CPT-62274 PT/INR - LAB USE ONLY 14:37:55 CUSTOMER OPERATIONS MANAGER CPT-84736 Venipuncture Draw Fee 14:37:55 CUSTOMER OPERATIONS MANAGER CPT-44331 LS spine comp w obliques - XRAY USE ONLY 12:59:25 CUSTOMER OPERATIONS MANAGER CPT-58421 PT/INR - LAB USE ONLY 13:49:20 CDT CPT-54771 Venipuncture Draw Fee 13:49:19 CDT CPT-37260 PT/INR - LAB USE ONLY 15:48:49 CDT CPT-28624 Venipuncture Draw Fee 15:48:49 CDT CPT-44793 Venipuncture Draw Fee 11:31:59 CDT CPT-37883 PT/INR - LAB USE ONLY 11:31:59 CDT CPT-05584 Venipuncture Draw Fee 13:29:15 CDT CPT-71754 Thoracolumbar AP/Lat 15:19:19 CUSTOMER OPERATIONS MANAGER CPT-G0438 Initial Annual Wellness Exam 12:18:54 CUSTOMER OPERATIONS MANAGER CPT-92715 Knee 3V 09:57:38 CDT CPT-OV Office Visit 15:45:01 CUSTOMER OPERATIONS MANAGER CPT-98026 Abd compl w upright 17:10:25 CDT
--- OUTSIDE RECORDS SUMMARY | 2018-07-18 10:12 | XMS REPORT | Clinical Summary ---
Author Author Admin, YONG Organization [facility] Address Unknown Phone Unavailable Allergies, Adverse Reactions, [...] 1 tablet days 2 through 4 PREDNISONE 15153586566 No Longer Active Piotr Daley DO Active AZITHROMYCIN 250 MG TABS 2 po qd x 1 day, then 1 po qd x 4 days AZITHROMYCIN 80013979888 No Longer Active Piotr Daley DO Active IBUPROFEN 800 MG TABS 1 tab every 8 hours as needed IBUPROFEN 04297170624 No Longer Active Piotr Daley DO Active LOMOTIL 2.5-0.025 MG TAB 1 to 2 four times a day as needed for diarrhea 10/13 DIPHENOXYLATE-ATROPINE 67368961520 No Longer Active Piotr Daley DO Active WARFARIN SODIUM 5 MG TABS 1 tablet daily except for Saturday and 04/09 tablet. WARFARIN SODIUM 42593021091 Active Piotr Daley DO Active WARFARIN SODIUM 4 MG TABS 1 tab every evening WARFARIN SODIUM 37255363423 No Longer Active Piotr Daley DO Active PREDNISONE 20 MG TAB 1 tablet twice daily for 2 days, then 1 tablet once daily for 2 days PREDNISONE 59313202027 No Longer Active Piotr Daley DO Active PROMETHAZINE HCL 25 MG TABS 1 four times a day as needed for nausea/vomiting PROMETHAZINE HCL 64161653938 No Longer Active Piotr Daley DO Active TUSSIONEX PENNKINETIC ER 10-8 MG/5ML LQCR 5ml po q12hr PRN Cough HYDROCOD POLST-CHLORPHEN POLST 79648930462 No Longer Active Piotr Daley DO Active AZITHROMYCIN 250 MG TABS 2 po qd x 1 day, then 1 po qd x 4 days AZITHROMYCIN 34949364364 No Longer Active Piotr Daley DO Active AZITHROMYCIN 250 MG TABS 2 po qd x 1 day, then 1 po qd x 4 days AZITHROMYCIN 76589971159 No Longer Active Piotr Daley DO Active LISINOPRIL-HYDROCHLOROTHIAZIDE 10-12.5 MG TABS 1 tab by mouth daily LISINOPRIL-HYDROCHLOROTHIAZIDE 20209454886 Active Piotr Daley DO Active LISINOPRIL 10 MG TABS 1/2-1 tab po every other day LISINOPRIL 35585023344 No Longer Active Piotr Daley DO Active VENTOLIN HFA 108 (90 BASE) MCG/ACT AERS 2 puffs four times a day PRN cough ALBUTEROL SULFATE 04719425712 No Longer Active Piotr Daley DO Active NYSTATIN-TRIAMCINOLONE 181487-2.1 UNIT/GM-% CREA Apply to area BID NYSTATIN-TRIAMCINOLONE 65013137964 No Longer Active Alena Chavira MINE PROMOTOR Active PHISOHEX 3 % LIQD Use Directed HEXACHLOROPHENE 81624720151 No Longer Active Sandra Wrights Active AZITHROMYCIN 250 MG TABS 2 po qd x 1 day, then 1 po qd x 4 days AZITHROMYCIN 64701723912 No Longer Active Katrina Rinaldi MD PhD Active AZITHROMYCIN 250 MG TABS 2 po qd x 1 day, then 1 po qd x 4 days AZITHROMYCIN 80516777359 No Longer Active Piotr Daley DO Active AZITHROMYCIN 500 MG SOLR 1 po q day AZITHROMYCIN 27783733787 No Longer Active Piotr Daley DO Active NYSTATIN-TRIAMCINOLONE 767892-7.1 UNIT/GM-% CREA apply bid 08/19 NYSTATIN-TRIAMCINOLONE 11265753136 No Longer Active Piotr Daley DO Active IBUPROFEN 800 MG TABS 1 po q 8 hours prn pain sparinly IBUPROFEN 24560813042 No Longer Active Piotr Daley DO Active VITAMIN D3 5000 UNIT CAPS 1 po daily CHOLECALCIFEROL 51095790896 Active Piotr Daley DO Active IBUPROFEN 800 MG TABS 1 po q 8 hours prn pain sparinly IBUPROFEN 800 MG TABS 774627 IBUPROFEN Inactive NYSTATIN-TRIAMCINOLONE 803239-6.1 UNIT/GM-% CREA apply bid 08/19 NYSTATIN-TRIAMCINOLONE 403716-0.1 UNIT/GM-% CREA 3293773 NYSTATIN- TRIAMCINOLONE Inactive AZITHROMYCIN 500 MG SOLR 1 po q day AZITHROMYCIN 500 MG SOLR 972807 AZITHROMYCIN Inactive VENTOLIN HFA 108 (90 BASE) MCG/ACT AERS 2 puffs four times a day PRN cough VENTOLIN HFA 108 (90 BASE) MCG/ACT AERS ALBUTEROL SULFATE Inactive LISINOPRIL 10 MG TABS 1/2-1 tab po every other day LISINOPRIL 10 MG TABS 893586 LISINOPRIL Inactive TUSSIONEX PENNKINETIC ER 10-8 MG/5ML LQCR 5ml po q12hr PRN Cough TUSSIONEX PENNKINETIC ER 10-8 MG/5ML LQCR HYDROCOD POLST- CHLORPHEN POLST Inactive PROMETHAZINE HCL 25 MG TABS 1 four times a day as needed for nausea/vomiting PROMETHAZINE HCL 25 MG TABS 997623 PROMETHAZINE HCL Inactive PREDNISONE 20 MG TAB 1 tablet twice daily for 2 days, then 1 tablet once daily for 2 days PREDNISONE 20 MG TAB 981241 PREDNISONE Inactive WARFARIN SODIUM 4 MG TABS 1 tab every evening WARFARIN SODIUM 4 MG TABS 215416 WARFARIN SODIUM Inactive LOMOTIL 2.5-0.025 MG TAB 1 to 2 four times a day as needed for diarrhea 10/13 LOMOTIL 2.5-0.025 MG TAB 2832636 DIPHENOXYLATE-ATROPINE Inactive IBUPROFEN 800 MG TABS 1 tab every 8 hours as needed IBUPROFEN 800 MG TABS 176908 IBUPROFEN Inactive PREDNISONE 20 MG TAB 2 tablets today, then 1 tablet days 2 through 4 PREDNISONE 20 MG TAB 210312 PREDNISONE Inactive AZITHROMYCIN 250 MG TABS 2 po qd x 1 day, then 1 po qd x 4 days AZITHROMYCIN 250 MG TABS 7260641 AZITHROMYCIN Inactive AZITHROMYCIN 250 MG TABS 2 po qd x 1 day, then 1 po qd x 4 days AZITHROMYCIN 250 MG TABS 2527570 AZITHROMYCIN Inactive NYSTATIN-TRIAMCINOLONE 701221-9.1 UNIT/GM-% CREA Apply to area BID NYSTATIN-TRIAMCINOLONE 737184-1.1 UNIT/GM-% CREA 7473708 NYSTATIN-TRIAMCINOLONE Inactive AZITHROMYCIN 250 MG TABS 2 po qd x 1 day, then 1 po qd x 4 days AZITHROMYCIN 250 MG TABS 5084234 AZITHROMYCIN Inactive AZITHROMYCIN 250 MG TABS 2 po qd x 1 day, then 1 po qd x 4 days AZITHROMYCIN 250 MG TABS 0804382 AZITHROMYCIN Inactive AZITHROMYCIN 250 MG TABS 2 po qd x 1 day, then 1 po qd x 4 days AZITHROMYCIN 250 MG TABS 7136232 AZITHROMYCIN Inactive Vital Signs Date Name Value [...] ... - Chemistry sodium, serum 142 mmol/L 481-962 1829/12/01 potassium, serum 4.7 mmol/L 3.5-5.2 chloride, serum [...] 142-424 Encounters Code Encounter Date Provider Facility CPT-34464 Level 3 Est. Patient 09:49:40 CDT Piotr Daley DO [facility] CPT-41155 Level 3 Est. Patient 16:28:11 CDT Piotr Daley [facility] CPT-40660 Level 3 Est. Patient 12:41:58 NUCLEAR FUELS RESEARCH ENGINEER Piotr Daley [facility] CPT-60703 Level 3 Est. Patient 09:21:24 CDT Piotr Daley [facility] CPT-87905 Level 3 Est. Patient 09:21:11 CDT Piotr Daley [facility] CPT-62035 Level 3 Est. Patient 11:16:29 NUCLEAR FUELS RESEARCH ENGINEER Piotr Daley [facility] CPT-46380 Level 3 Est. Patient 18:40:19 NUCLEAR FUELS RESEARCH ENGINEER Piotr Daley [facility] CPT-08507 Level 3 Est. Patient 19:30:50 CDT Piotr Daley [facility] CPT-65247 Level 3 Est. Patient 22:06:44 CDT Katrina Rinaldi MD PhD [facility] CPT-98477 Level 3 Est. Patient 14:20:00 CDT Pitor Daley [facility] CPT-47039 Level 3 Est. Patient 14:15:22 NUCLEAR FUELS RESEARCH ENGINEER Piotr Katie Daley [facility] CPT-46717 Level 3 Est. Patient 20:19:57 NUCLEAR FUELS RESEARCH ENGINEER Piotr Daley [facility] CPT-72995 Level 3 Est. Patient 16:44:32 CDT Piotr Katie Daley [facility] CPT-46836 Level 3 Est. Patient 08:48:46 NUCLEAR FUELS RESEARCH ENGINEER Piotr [facility] CPT-87335 Level 3 Est. Patient 21:01:21 CDT Piotr [employer] [facility] Procedures Code Procedure Name Date Entry Date Standard Description CPT-23276 Knee 3V 09:57:38 CDT CPT-OV Office Visit 15:45:01 NUCLEAR FUELS RESEARCH ENGINEER CPT-84607 Abd compl w upright 17:10:25 CDT
--- OUTSIDE RECORDS SUMMARY | 2018-07-18 10:13 | XMS REPORT | Clinical Summary ---
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 Inactive Sirisha Chen DIRT SHOVELER Seborrheic keratosis ICD-702.19 Inactive Sirisha Chen DIRT SHOVELER Bronchitis-Acute ICD-466.0 Inactive Piotr Daley DO Leg pain, right ICD-729.5 Inactive Sirisha Chen DIRT SHOVELER Right leg pain ICD-729.5 Inactive Sirisha Chen DIRT SHOVELER Bronchitis-Acute ICD-466.0 Inactive Sirisha Chen DIRT SHOVELER Knee pain, left ICD-719.46 Inactive Sirisha Chen DIRT SHOVELER Actinic keratoses ICD-702.0 Inactive Sirisha Chen DIRT SHOVELER Back pain, thoracic region, left ICD-724.1 Inactive Piotr Daley DO Thoracic back pain ICD-724.5 Inactive Sirisha Chen DIRT SHOVELER Back pain lumbar ICD-724.2 Inactive Sirisha Chen DIRT SHOVELER Insect bite ICD-919.4 Inactive Sirisha Chen DIRT SHOVELER Pruritus ICD-698.9 Inactive Sirisha Chen DIRT SHOVELER 04/09 Bronchitis-Acute ICD-466.0 Inactive Sirisha Chen DIRT SHOVELER FLANK PAIN, RIGHT ICD-789.09 Inactive Katrina Rinaldi MD PhD Dyspnea ICD-786.09 Inactive Sirisha Chen DIRT SHOVELER 05/09 Medication List Medication Instructions Start Date Stop Date Generic Name NDC Status Provider Patient Instruction WARFARIN SODIUM 4 MG ORAL TABLET 1 tablet by mouth daily except 2mg on Saturday and Saturday WARFARIN SODIUM 81838670360 Active Anahy Loja Active MELOXICAM 15 MG ORAL TABLET 1 po q day for pain with food MELOXICAM 39671393033 Active Piotr Daley DO Active PREDNISONE 10 MG ORAL TABLET 1 tablet by mouth daily PREDNISONE 13254532309 No Longer Active Emelyn Norris Active TESSALON PERLES 100 MG ORAL CAPSULE 1-2 tablet by mouth 3 times daily 04/16 BENZONATATE 26822810725 No Longer Active Emelyn Norris Active PREDNISONE 20 MG ORAL TABLET two tabs by mouth today, then one tab by mouth days two and three PREDNISONE 67641426360 No Longer Active Piotr Daley DO Active CYCLOBENZAPRINE HCL 10 MG ORAL TABLET 1 tablet by mouth three times daily as needed for muscle spasm/pain CYCLOBENZAPRINE HCL 48376359886 Active Sirisha Chen LPN Active ZITHROMAX 250 MG ORAL TABLET Take two (2 ) tablets day one, then one (1) tablet a day for four (4) more days AZITHROMYCIN 40322036755 No Longer Active Piotr Daley DO Active PROAIR HFA 108 (90 BASE) MCG/ACT INHALATION AEROSOL SOLUTION 1-2 puffs four times a day as needed ALBUTEROL SULFATE 93964946915 No Longer Active Emelyn Norris Active DOXYCYCLINE HYCLATE 100 MG ORAL CAPSULE 1 cap by mouth BID x10 days DOXYCYCLINE HYCLATE 50360478731 No Longer Active Nella Harris APRN Active PREDNISONE 20 MG ORAL TABLET 2 tabs daily for 3 days, 1 tab daily for 3 days, 1/2 tab daily for 2 days PREDNISONE 21269513116 No Longer Active Matthew Rangel MD Active TRAMADOL HCL 50 MG ORAL TABLET 1 po tid with ES Tylenol TRAMADOL HCL 57421878361 No Longer Active Matthew Rangel MD Active GABAPENTIN 300 MG ORAL CAPSULE 1 po q hs for nerve pain GABAPENTIN 72446938850 No Longer Active Matthew Rangel MD Active PREDNISONE 20 MG ORAL TABLET 2 tablets today, then 1 tablet days 2 through 4 PREDNISONE 27241966887 No Longer Active Piotr Daley DO Active AZITHROMYCIN 250 MG ORAL TABLET 2 po qd x 1 day, then 1 po qd x 4 days 07/12 AZITHROMYCIN 29742202849 No Longer Active Piotr Daley DO Active IBUPROFEN 800 MG ORAL TABLET 1 tab every 8 hours as needed 07/12 IBUPROFEN 97437574248 No Longer Active Piotr Daley DO Active LOMOTIL 2.5-0.025 MG ORAL TABLET 1 to 2 four times a day as needed for diarrhea DIPHENOXYLATE-ATROPINE 69487098521 No Longer Active Piotr Daley DO Active WARFARIN SODIUM 4 MG ORAL TABLET 1 tab every evening WARFARIN SODIUM 07238711415 No Longer Active Piotr Daley DO Active PREDNISONE 20 MG ORAL TABLET 1 tablet twice daily for 2 days, then 1 tablet once daily for 2 days PREDNISONE 47361897011 No Longer Active Piotr Daley DO Active PROMETHAZINE HCL 25 MG ORAL TABLET 1 four times a day as needed for nausea/ vomiting PROMETHAZINE HCL 27007285695 No Longer Active Piotr Daley DO Active TUSSIONEX PENNKINETIC ER 10-8 MG/5ML ORAL SUSPENSION EXTENDED RELEASE 5ml po q12hr PRN Cough HYDROCOD POLST-CHLORPHEN POLST 10042591889 No Longer Active Piotr Daley DO Active AZITHROMYCIN 250 MG ORAL TABLET 2 po qd x 1 day, then 1 po qd x 4 days 10/13 AZITHROMYCIN 22460840529 No Longer Active Piotr Daley DO Active AZITHROMYCIN 250 MG ORAL TABLET 2 po qd x 1 day, then 1 po qd x 4 days 05/07 AZITHROMYCIN 89827983380 No Longer Active Piotr Daley DO Active LISINOPRIL-HYDROCHLOROTHIAZIDE 10-12.5 MG ORAL TABLET 1 tab by mouth daily LISINOPRIL-HYDROCHLOROTHIAZIDE 55360630569 Active Piotr Daley DO Active LISINOPRIL 10 MG ORAL TABLET 1/2-1 tab po every other day LISINOPRIL 69465789821 No Longer Active Piotr Daley DO Active VENTOLIN HFA 108 (90 Base) MCG/ACT INHALATION AEROSOL SOLUTION 2 puffs four times a day PRN cough ALBUTEROL SULFATE 97517613668 No Longer Active Piotr Daley DO Active NYSTATIN-TRIAMCINOLONE 093136-5.1 UNIT/GM-% EXTERNAL CREAM Apply to area BID NYSTATIN-TRIAMCINOLONE 19360405841 No Longer Active Alena Chavira DIRT SHOVELER Active PHISOHEX 3 % LIQD Use Directed HEXACHLOROPHENE 68608570972 No Longer Active Sandra [place] Active AZITHROMYCIN 250 MG ORAL TABLET 2 po qd x 1 day, then 1 po qd x 4 days 10/21 AZITHROMYCIN 85629618386 No Longer Active Katrina Rinaldi MD PhD Active AZITHROMYCIN 250 MG ORAL TABLET 2 po qd x 1 day, then 1 po qd x 4 days 10/16 AZITHROMYCIN 88184150153 No Longer Active Piotr Daley DO Active AZITHROMYCIN 500 MG INTRAVENOUS SOLUTION RECONSTITUTED 1 po q day AZITHROMYCIN 47499578148 No Longer Active Piotr Daley DO Active NYSTATIN-TRIAMCINOLONE 661149-8.1 UNIT/GM-% EXTERNAL CREAM apply bid NYSTATIN-TRIAMCINOLONE 03144839045 No Longer Active Piotr Daley DO Active IBUPROFEN 800 MG ORAL TABLET 1 po q 8 hours prn pain sparinly IBUPROFEN 17010099546 No Longer Active Piotr Daley DO Active VITAMIN D3 5000 UNIT ORAL CAPSULE 1 po daily CHOLECALCIFEROL 28935288605 Active Piotr Daley DO Active DOXYCYCLINE HYCLATE 100 MG ORAL CAPSULE 1 cap by mouth BID x10 days DOXYCYCLINE HYCLATE 100 MG ORAL CAPSULE 1624028 DOXYCYCLINE HYCLATE Inactive IBUPROFEN 800 MG ORAL TABLET 1 po q 8 hours prn pain sparinly IBUPROFEN 800 MG ORAL TABLET 887057 IBUPROFEN Inactive IBUPROFEN 800 MG ORAL TABLET 1 tab every 8 hours as needed 07/12 IBUPROFEN 800 MG ORAL TABLET 077705 IBUPROFEN Inactive LOMOTIL 2.5-0.025 MG ORAL TABLET 1 to 2 four times a day as needed for diarrhea LOMOTIL 2.5-0.025 MG ORAL TABLET 5640083 DIPHENOXYLATE-ATROPINE Inactive NYSTATIN-TRIAMCINOLONE 546723-3.1 UNIT/GM-% EXTERNAL CREAM apply bid NYSTATIN-TRIAMCINOLONE 655907-9.1 UNIT/GM-% EXTERNAL CREAM 3672431 NYSTATIN-TRIAMCINOLONE Inactive NYSTATIN-TRIAMCINOLONE 502880-0.1 UNIT/GM-% EXTERNAL CREAM Apply to area BID NYSTATIN-TRIAMCINOLONE 307159-6.1 UNIT/GM-% EXTERNAL CREAM 6323387 NYSTATIN-TRIAMCINOLONE Inactive PREDNISONE 10 MG ORAL TABLET 1 tablet by mouth daily PREDNISONE 10 MG ORAL TABLET 570024 PREDNISONE Inactive PREDNISONE 20 MG ORAL TABLET two tabs by mouth today, then one tab by mouth days two and three PREDNISONE 20 MG ORAL TABLET 688869 PREDNISONE Inactive PREDNISONE 20 MG ORAL TABLET 2 tabs daily for 3 days, 1 tab daily for 3 days, 1/2 tab daily for 2 days PREDNISONE 20 MG ORAL TABLET 394089 PREDNISONE Inactive PREDNISONE 20 MG ORAL TABLET 1 tablet twice daily for 2 days, then 1 tablet once daily for 2 days PREDNISONE 20 MG ORAL TABLET 936780 PREDNISONE Inactive PREDNISONE 20 MG ORAL TABLET 2 tablets today, then 1 tablet days 2 through 4 PREDNISONE 20 MG ORAL TABLET 232005 PREDNISONE Inactive PROMETHAZINE HCL 25 MG ORAL TABLET 1 four times a day as needed for nausea/ vomiting PROMETHAZINE HCL 25 MG ORAL TABLET 959832 PROMETHAZINE HCL Inactive LISINOPRIL 10 MG ORAL TABLET 1/2-1 tab po every other day LISINOPRIL 10 MG ORAL TABLET 704565 LISINOPRIL Inactive TESSALON PERLES 100 MG ORAL CAPSULE 1-2 tablet by mouth 3 times daily 04/16 TESSALON PERLES 100 MG ORAL CAPSULE 473176 BENZONATATE Inactive TRAMADOL HCL 50 MG ORAL TABLET 1 po tid with ES Tylenol TRAMADOL HCL 50 MG ORAL TABLET 691410 TRAMADOL HCL Inactive GABAPENTIN 300 MG ORAL CAPSULE 1 po q hs for nerve pain GABAPENTIN 300 MG ORAL CAPSULE 317916 GABAPENTIN Inactive ZITHROMAX 250 MG ORAL TABLET Take two (2 ) tablets day one, then one (1) tablet a day for four (4) more days ZITHROMAX 250 MG ORAL TABLET 366442 AZITHROMYCIN Inactive AZITHROMYCIN 250 MG ORAL TABLET 2 po qd x 1 day, then 1 po qd x 4 days 05/07 AZITHROMYCIN 250 MG ORAL TABLET 127423 AZITHROMYCIN Inactive AZITHROMYCIN 250 MG ORAL TABLET 2 po qd x 1 day, then 1 po qd x 4 days 10/13 AZITHROMYCIN 250 MG ORAL TABLET 832777 AZITHROMYCIN Inactive AZITHROMYCIN 250 MG ORAL TABLET 2 po qd x 1 day, then 1 po qd x 4 days 07/12 AZITHROMYCIN 250 MG ORAL TABLET 076684 AZITHROMYCIN Inactive AZITHROMYCIN 250 MG ORAL TABLET 2 po qd x 1 day, then 1 po qd x 4 days 10/16 AZITHROMYCIN 250 MG ORAL TABLET 673862 AZITHROMYCIN Inactive AZITHROMYCIN 250 MG ORAL TABLET 2 po qd x 1 day, then 1 po qd x 4 days 10/21 AZITHROMYCIN 250 MG ORAL TABLET 662952 AZITHROMYCIN Inactive AZITHROMYCIN 500 MG INTRAVENOUS SOLUTION RECONSTITUTED 1 po q day AZITHROMYCIN 500 MG INTRAVENOUS SOLUTION RECONSTITUTED 96372152533 AZITHROMYCIN Inactive WARFARIN SODIUM 4 MG ORAL TABLET 1 tab every evening WARFARIN SODIUM 4 MG ORAL TABLET 836319 WARFARIN SODIUM Inactive VENTOLIN HFA 108 (90 [...] % 11.0-15.0 platelet count 172 THOUSAND/UL 10*3/mm3 492-753 8866/04/12 mean platelet volume 8.6 fL 7.5-12.5 Lab Report: Prothrombin Time Hemochron - Coagulation prothrombin time (patient) 33.0 SECS s 18.9-24.9 Encounters Code Encounter Date Provider Facility CPT-83551 Level 3 Est. Patient 15:59:25 [employer]UUM [employer]ING SUPERVISOR Piotr Daley [facility] CPT-68856 Level 3 Est. Patient 12:33:59 VACUUM METALIZING SUPERVISOR Piotr Daley [facility] CPT-74292 Level 3 Est. Patient 15:56:17 VACUUM METALIZING SUPERVISOR Piotr Daley [facility] CPT-88416 Level 3 Est. Patient 10:34:54 VACUUM METALIZING SUPERVISOR Piotr Daley [facility] CPT-91951 Level 3 Est. Patient 17:10:19 MALACHI Harris APRN [facility] CPT-78668 Level 3 Est. Patient 10:48:17 [employer]ACUUM METALIZING SUPERVISOR Matthew Rangel MD [facility] CPT-69327 Level 4 Est. Patient 17:15:07 VACUUM METALIZING SUPERVISOR Piotr Daley [facility] CPT-72655 Level 3 Est. Patient 12:46:13 VACUUM METALIZING SUPERVISOR Piotr Daley [facility] CPT-64563 Level 3 Est. Patient 15:14:31 VACUUM METALIZING SUPERVISOR Piotr Katie Daley [facility] CPT-41898 Level 3 Est. Patient 09:20:13 VACUUM METALIZING SUPERVISOR Piotr Daley [facility] CPT-01252 Level 3 Est. Patient 09:49:40 CDT Piotr Daley [facility] CPT-91624 Level 3 Est. Patient 16:28:11 CDT Piotr Daley [facility] CPT-71225 Level 3 Est. Patient 12:41:58 VACUUM METALIZING SUPERVISOR Piotr Daley [facility] CPT-76188 Level 3 Est. Patient 09:21:24 CDT Piotr Daley [facility] CPT-68910 Level 3 Est. Patient 09:21:11 CDT Piotr Daley [facility] CPT-09575 Level 3 Est. Patient 11:16:29 VACUUM METALIZING SUPERVISOR Piotr Daley [facility] CPT-48825 Level 3 Est. Patient 18:40:19 VACUUM METALIZING SUPERVISOR Piotr Daley [facility] CPT-27015 Level 3 Est. Patient 19:30:50 CDT Piotr Daley [facility] CPT-74879 Level 3 Est. Patient 22:06:44 CDT Katrina Rinaldi MD PhD [facility]-78314 Level 3 Est. Patient 14:20:00 CDT Piotr Daley [facility] CPT-16578 Level 3 Est. Patient 14:15:22 VACUUM METALIZING SUPERVISOR Piotr Daley [facility] CPT-46061 Level 3 Est. Patient 20:19:57 VACUUM METALIZING SUPERVISOR Piotr Daley [facility] CPT-02695 Level 3 Est. Patient 16:44:32 CDT Piotr Daley [facility] CPT-42147 Level 3 Est. Patient 08:48:46 VACUUM METALIZING SUPERVISOR Piotr Daley [facility] CPT-51610 Level 3 Est. Patient 21:01:21 CDT Piotr Daley [facility] Procedures Code Procedure Name Date Entry Date Standard Description CPT-04296 Sacroiliac jt < 3V - XRAY USE ONLY 16:45:19 [employer] SUPERVISOR 05/09 CPT-40768 LS spine comp w obliques - XRAY USE ONLY 14:52:26 [employer]ING SUPERVISOR CPT-69402 Chest, 2 views 12:55:58 [employer] SUPERVISOR CPT-G0439 Subsequent Annual Wellness Exam 10:34:52 [employer]ING SUPERVISOR CPT-69389 BMP - LAB USE ONLY 17:19:11 [employer]ING SUPERVISOR CPT-71188 PT/INR - LAB USE ONLY 17:19:10 [facility] CPT-23121 Venipuncture Draw Fee 17:19:10 [facility] CPT-29559 PT/INR - LAB USE ONLY 08:12:25 [employer] SUPERVISOR CPT-38614 Venipuncture Draw Fee 08:12:24 [employer]ING SUPERVISOR CPT-84463 Venipuncture Draw Fee 11:31:07 [employer]UUM METAL[employer]ING SUPERVISOR CPT-65484 TPSA - LAB USE ONLY 11:31:07 [employer]UUM [employer]AL[employer]ING SUPERVISOR CPT-91177 PT/INR - LAB USE ONLY 11:31:07 [employer] METAL[employer]ING SUPERVISOR CPT-G0439 Subsequent Annual Wellness Exam 09:59:29 [employer]ING SUPERVISOR CPT-96884 Creatinine - LAB USE ONLY 14:37:55 [employer] METAL[employer]ING SUPERVISOR CPT-32856 PT/INR - LAB USE ONLY 14:37:55 [employer]AL[employer]ING SUPERVISOR CPT-00224 Venipuncture Draw Fee 14:37:55 [employer] METAL[employer]ING SUPERVISOR CPT-59771 LS spine comp w obliques - XRAY USE ONLY 12:59:25 [employer] METAL[employer]ING SUPERVISOR CPT-03505 PT/INR - LAB USE ONLY 13:49:20 CDT CPT-84401 Venipuncture Draw Fee 13:49:19 CDT CPT-70075 PT/INR - LAB USE ONLY 15:48:49 CDT CPT-67356 Venipuncture Draw Fee 15:48:49 CDT CPT-02613 Venipuncture Draw Fee 11:31:59 CDT CPT-49329 PT/INR - LAB USE ONLY 11:31:59 CDT CPT-51412 Venipuncture Draw Fee 13:29:15 CDT CPT-24338 Thoracolumbar AP/Lat 15:19:19 [employer] SUPERVISOR CPT-G0438 Initial Annual Wellness Exam 12:18:54 [employer]ING SUPERVISOR CPT-10165 Knee 3V 09:57:38 CDT CPT-OV Office Visit 15:45:01 [employer] SUPERVIS[employer] CPT-21962 Abd compl w upright 17:10:25 CDT
--- OUTSIDE RECORDS SUMMARY | 2018-07-18 10:14 | XMS REPORT | Clinical Summary ---
Author Author Admin, [employer] Address Unknown Phone Unavailable Allergies, Adverse [...] neoplasm of prostate V10.46 Active Alina Meyers BOTTLER Personal history of malignant neoplasm of prostate Coronary artery disease 414.00 Active Alina Meyers BOTTLER Coronary atherosclerosis of unspecified type of vessel, [place] [employer] or graft Back pain, thoracic region, left 724.1 Inactive Piotr Katie Edi DO Pain in thoracic spine Thoracic back pain 724.5 Active Piotr W Edi DO Backache, unspecified Back pain lumbar 724.2 Active Piotr Wilson Edi DO Lumbago Peripheral neuropathy, lower extremity, left 356.9 Active 02/19 Piotr W Edi DO Unspecified hereditary and idiopathic peripheral neuropathy Insect bite 919.4 Active Nella Harris BOTTLER Insect bite, nonvenomous, of other, multiple, and unspecified sites, without mention of infection Pruritus 698.9 Active Nella Harris BOTTLER Unspecified pruritic disorder Wellness exam V70.0 Active [...] times a day as needed ALBUTEROL SULFATE 43619558690 No Longer Active Emelyn Norris Active DOXYCYCLINE HYCLATE 100 MG ORAL CAPSULE 1 cap by mouth BID x10 days DOXYCYCLINE HYCLATE 69917013803 No Longer Active Nella Harris APRN Active WARFARIN SODIUM 5 MG ORAL TABLET 1 tablet daily M-S, 1/2 tab on Heart WARFARIN SODIUM 08953511870 Active Piotr Daley DO Active PREDNISONE 20 MG ORAL TABLET 2 tabs daily for 3 days, 1 tab daily for 3 days, 1/2 tab daily for 2 days PREDNISONE 57367309645 No Longer Active Matthew Rangel MD Active TRAMADOL HCL 50 MG ORAL TABLET 1 po tid with ES Tylenol TRAMADOL HCL 64986157234 No Longer Active Matthew Rangel MD Active GABAPENTIN 300 MG ORAL CAPSULE 1 po q hs for nerve pain GABAPENTIN 07078841170 No Longer Active Matthew Rangel MD Active PREDNISONE 20 MG ORAL TABLET 2 tablets today, then 1 tablet days 2 through 4 PREDNISONE 29644956482 No Longer Active Piotr Daley DO Active AZITHROMYCIN 250 MG ORAL TABLET 2 po qd x 1 day, then 1 po qd x 4 days 07/12 AZITHROMYCIN 32983949426 No Longer Active Piotr Daley DO Active IBUPROFEN 800 MG ORAL TABLET 1 tab every 8 hours as needed 07/12 IBUPROFEN 03597611202 No Longer Active Piotr Daley DO Active LOMOTIL 2.5-0.025 MG ORAL TABLET 1 to 2 four times a day as needed for diarrhea DIPHENOXYLATE-ATROPINE 28805871360 No Longer Active Piotr Daley DO Active WARFARIN SODIUM 4 MG ORAL TABLET 1 tab every evening WARFARIN SODIUM 60783293639 No Longer Active Piotr Daley DO Active PREDNISONE 20 MG ORAL TABLET 1 tablet twice daily for 2 days, then 1 tablet once daily for 2 days PREDNISONE 16911211172 No Longer Active Piotr Daley DO Active PROMETHAZINE HCL 25 MG ORAL TABLET 1 four times a day as needed for nausea/ vomiting PROMETHAZINE HCL 74222032930 No Longer Active Piotr Daley DO Active TUSSIONEX PENNKINETIC ER 10-8 MG/5ML ORAL SUSPENSION EXTENDED RELEASE 5ml po q12hr PRN Cough HYDROCOD POLST-CHLORPHEN POLST 21861834888 No Longer Active Piotr Daley DO Active AZITHROMYCIN 250 MG ORAL TABLET 2 po qd x 1 day, then 1 po qd x 4 days 10/13 AZITHROMYCIN 38187303274 No Longer Active Piotr Daley DO Active AZITHROMYCIN 250 MG ORAL TABLET 2 po qd x 1 day, then 1 po qd x 4 days 05/07 AZITHROMYCIN 52295790049 No Longer Active Piotr Daley DO Active LISINOPRIL-HYDROCHLOROTHIAZIDE 10-12.5 MG ORAL TABLET 1 tab by mouth daily LISINOPRIL-HYDROCHLOROTHIAZIDE 92930230399 Active Piotr Daley DO Active LISINOPRIL 10 MG ORAL TABLET 1/2-1 tab po every other day LISINOPRIL 05222587565 No Longer Active Piotr Daley DO Active VENTOLIN HFA 108 (90 Base) MCG/ACT INHALATION AEROSOL SOLUTION 2 puffs four times a day PRN cough ALBUTEROL SULFATE 17818822895 No Longer Active Piotr Daley DO Active NYSTATIN-TRIAMCINOLONE 313815-5.1 UNIT/GM-% EXTERNAL CREAM Apply to area BID NYSTATIN-TRIAMCINOLONE 80770042254 No Longer Active Alena Chavira AERONAUTICAL ENGINEERING TECHNOLOGIST Active PHISOHEX 3 % LIQD Use Directed HEXACHLOROPHENE 76991690507 No Longer Active Sandra [place] Active AZITHROMYCIN 250 MG ORAL TABLET 2 po qd x 1 day, then 1 po qd x 4 days 10/21 AZITHROMYCIN 03131690288 No Longer Active Katrina Rinaldi MD PhD Active AZITHROMYCIN 250 MG ORAL TABLET 2 po qd x 1 day, then 1 po qd x 4 days 10/16 AZITHROMYCIN 53478165426 No Longer Active Piotr Daley DO Active AZITHROMYCIN 500 MG INTRAVENOUS SOLUTION RECONSTITUTED 1 po q day AZITHROMYCIN 22894828116 No Longer Active Piotr Daley DO Active NYSTATIN-TRIAMCINOLONE 089720-7.1 UNIT/GM-% EXTERNAL CREAM apply bid NYSTATIN-TRIAMCINOLONE 93036166358 No Longer Active Piotr Daley DO Active IBUPROFEN 800 MG ORAL TABLET 1 po q 8 hours prn pain sparinly IBUPROFEN 78340670814 No Longer Active Piotr Daley DO Active VITAMIN D3 5000 UNIT ORAL CAPSULE 1 po daily CHOLECALCIFEROL 99322025101 Active Piotr Daley DO Active DOXYCYCLINE HYCLATE 100 MG ORAL CAPSULE 1 cap by mouth BID x10 days DOXYCYCLINE HYCLATE 100 MG ORAL CAPSULE 1323101 DOXYCYCLINE HYCLATE Inactive IBUPROFEN 800 MG ORAL TABLET 1 po q 8 hours prn pain sparinly IBUPROFEN 800 MG ORAL TABLET 445961 IBUPROFEN Inactive IBUPROFEN 800 MG ORAL TABLET 1 tab every 8 hours as needed 07/12 IBUPROFEN 800 MG ORAL TABLET 488188 IBUPROFEN Inactive LOMOTIL 2.5-0.025 MG ORAL TABLET 1 to 2 four times a day as needed for diarrhea LOMOTIL 2.5-0.025 MG ORAL TABLET 6146644 DIPHENOXYLATE-ATROPINE Inactive NYSTATIN-TRIAMCINOLONE 067263-9.1 UNIT/GM-% EXTERNAL CREAM apply bid NYSTATIN-TRIAMCINOLONE 298368-4.1 UNIT/GM-% EXTERNAL CREAM 7826364 NYSTATIN-TRIAMCINOLONE Inactive NYSTATIN-TRIAMCINOLONE 414211-9.1 UNIT/GM-% EXTERNAL CREAM Apply to area BID NYSTATIN-TRIAMCINOLONE 379874-5.1 UNIT/GM-% EXTERNAL CREAM 0465397 NYSTATIN-TRIAMCINOLONE Inactive PREDNISONE 20 MG ORAL TABLET 1 tablet twice daily for 2 days, then 1 tablet once daily for 2 days PREDNISONE 20 MG ORAL TABLET 818266 PREDNISONE Inactive PREDNISONE 20 MG ORAL TABLET 2 tablets today, then 1 tablet days 2 through 4 PREDNISONE 20 MG ORAL TABLET 228567 PREDNISONE Inactive PREDNISONE 20 MG ORAL TABLET 2 tabs daily for 3 days, 1 tab daily for 3 days, 1/2 tab daily for 2 days PREDNISONE 20 MG ORAL TABLET 586748 PREDNISONE Inactive PROMETHAZINE HCL 25 MG ORAL TABLET 1 four times a day as needed for nausea/ vomiting PROMETHAZINE HCL 25 MG ORAL TABLET 281352 PROMETHAZINE HCL Inactive LISINOPRIL 10 MG ORAL TABLET 1/2-1 tab po every other day LISINOPRIL 10 MG ORAL TABLET 960574 LISINOPRIL Inactive TRAMADOL HCL 50 MG ORAL TABLET 1 po tid with ES Tylenol TRAMADOL HCL 50 MG ORAL TABLET 194610 TRAMADOL HCL Inactive GABAPENTIN 300 MG ORAL CAPSULE 1 po q hs for nerve pain GABAPENTIN 300 MG ORAL CAPSULE 394215 GABAPENTIN Inactive AZITHROMYCIN 250 MG ORAL TABLET 2 po qd x 1 day, then 1 po qd x 4 days 10/16 AZITHROMYCIN 250 MG ORAL TABLET 412985 AZITHROMYCIN Inactive AZITHROMYCIN 250 MG ORAL TABLET 2 po qd x 1 day, then 1 po qd x 4 days 10/21 AZITHROMYCIN 250 MG ORAL TABLET 736352 AZITHROMYCIN Inactive AZITHROMYCIN 250 MG ORAL TABLET 2 po qd x 1 day, then 1 po qd x 4 days 05/07 AZITHROMYCIN 250 MG ORAL TABLET 915072 AZITHROMYCIN Inactive AZITHROMYCIN 250 MG ORAL TABLET 2 po qd x 1 day, then 1 po qd x 4 days 10/13 AZITHROMYCIN 250 MG ORAL TABLET 790447 AZITHROMYCIN Inactive AZITHROMYCIN 250 MG ORAL TABLET 2 po qd x 1 day, then 1 po qd x 4 days 07/12 AZITHROMYCIN 250 MG ORAL TABLET 657823 AZITHROMYCIN Inactive AZITHROMYCIN 500 MG INTRAVENOUS SOLUTION RECONSTITUTED 1 po q day AZITHROMYCIN 500 MG INTRAVENOUS SOLUTION RECONSTITUTED 93626891298 AZITHROMYCIN Inactive WARFARIN SODIUM 4 MG ORAL TABLET 1 tab every evening WARFARIN SODIUM 4 MG ORAL TABLET 167224 WARFARIN SODIUM Inactive VENTOLIN HFA 108 (90 [...] Panel - Chemistry sodium, serum 141 mmol/L 810-206 8797/01/24 potassium, serum 4.3 mmol/L 3.5-5.2 chloride, serum [...] % 11.0-15.0 platelet count 172 THOUSAND/UL 10*3/mm3 291-162 8162/04/12 mean platelet volume 8.6 fL 7.5-12.5 Lab [...] 18.9-24.9 Encounters Code Encounter Date Provider Facility CPT-95631 Level 3 Est. Patient 10:34:54 PUBLIC POLICY COORDINATOR Piotr Wilson Dei [facility] CPT-49547 Level 3 Est. Patient 17:10:19 CDT Nella Harris APRN [facility] CPT-82549 Level 3 Est. Patient 10:48:17 PUBLIC POLICY COORDINATOR Matthew Rangel MD [facility] CPT-87557 Level 4 Est. Patient 17:15:07 PUBLIC POLICY COORDINATOR Piotr Wilson Edi [facility] CPT-65973 Level 3 Est. Patient 12:46:13 PUBLIC POLICY COORDINATOR Piotr Wilson Edi [facility] CPT-75576 Level 3 Est. Patient 15:14:31 PUBLIC POLICY COORDINATOR Piotr Wilson Edi [facility] CPT-64659 Level 3 Est. Patient 09:20:13 PUBLIC POLICY COORDINATOR Piotr Wilson Edi [facility] CPT-12520 Level 3 Est. Patient 09:49:40 CDT Piotr Katie Daley [facility] CPT-98303 Level 3 Est. Patient 16:28:11 CDT Piotr Wilson Edi [facility] CPT-54665 Level 3 Est. Patient 12:41:58 PUBLIC POLICY COORDINATOR Piotr Daley [facility] CPT-38968 Level 3 Est. Patient 09:21:24 CDT Piotr Katie Daley [facility] CPT-21179 Level 3 Est. Patient 09:21:11 CDT Piotr Katie Daley [facility] CPT-06217 Level 3 Est. Patient 11:16:29 PUBLIC POLICY COORDINATOR Piotr Daley [facility] CPT-73934 Level 3 Est. Patient 18:40:19 PUBLIC POLICY COORDINATOR Piotr Daley [facility] CPT-51536 Level 3 Est. Patient 19:30:50 CDT Piotr Wilson Edi [facility] CPT-57486 Level 3 Est. Patient 22:06:44 CDT Katrina Rinaldi MD PhD [facility] CPT-98253 Level 3 Est. Patient 14:20:00 CDT Piotr Daley [facility] CPT-68884 Level 3 Est. Patient 14:15:22 PUBLIC POLICY COORDINATOR Piotr Daley [facility] CPT-86032 Level 3 Est. Patient 20:19:57 PUBLIC POLICY COORDINATOR Piotr Daley [facility] CPT-56619 Level 3 Est. Patient 16:44:32 CDT Piotr Daley [facility] CPT-44853 Level 3 Est. Patient 08:48:46 PUBLIC POLICY COORDINATOR Piotr Daley [facility] CPT-36364 Level 3 Est. Patient 21:01:21 CDT Piotr Daley [facility] Procedures Code Procedure Name Date Entry Date Standard Description CPT-G0439 Subsequent Annual Wellness Exam 10:34:52 [facility] CPT-38990 BMP - LAB USE ONLY 17:19:11 [facility] CPT-01761 PT/INR - LAB USE ONLY 17:19:10 [facility] CPT-40238 Venipuncture Draw Fee 17:19:10 PUBLIC POLICY COORDINATOR CPT-77544 PT/INR - LAB USE ONLY 08:12:25 [facility] CPT-19132 Venipuncture Draw Fee 08:12:24 PUBLIC POLICY COORDINATOR CPT-01050 Venipuncture Draw Fee 11:31:07 PUBLIC POLICY COORDINATOR CPT-36074 TPSA - LAB USE ONLY 11:31:07 PUBLIC POLICY COORDINATOR CPT-58738 PT/INR - LAB USE ONLY 11:31:07 [facility] CPT-G0439 Subsequent Annual Wellness Exam 09:59:29 PUBLIC POLICY COORDINATOR CPT-52803 Creatinine - LAB USE ONLY 14:37:55 PUBLIC POLICY COORDINATOR CPT-14127 PT/INR - LAB USE ONLY 14:37:55 PUBLIC POLICY COORDINATOR CPT-22698 Venipuncture Draw Fee 14:37:55 PUBLIC POLICY COORDINATOR CPT-11039 LS spine comp w obliques - XRAY USE ONLY 12:59:25 PUBLIC POLICY COORDINATOR CPT-72846 PT/INR - LAB USE ONLY 13:49:20 CDT CPT-15741 Venipuncture Draw Fee 13:49:19 CDT CPT-01101 PT/INR - LAB USE ONLY 15:48:49 CDT CPT-09060 Venipuncture Draw Fee 15:48:49 CDT CPT-04402 Venipuncture Draw Fee 11:31:59 CDT CPT-45515 PT/INR - LAB USE ONLY 11:31:59 CDT CPT-28844 Venipuncture Draw Fee 13:29:15 CDT CPT-24476 Thoracolumbar AP/Lat 15:19:19 PUBLIC POLICY COORDINATOR CPT-G0438 Initial Annual Wellness Exam 12:18:54 PUBLIC POLICY COORDINATOR CPT-88213 Knee 3V 09:57:38 CDT CPT-OV Office Visit 15:45:01 PUBLIC POLICY COORDINATOR CPT-09389 Abd compl w upright 17:10:25 CDT
--- OUTSIDE RECORDS SUMMARY | 2018-07-18 10:15 | XMS REPORT | Clinical Summary ---
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 Inactive Sirisha Chen FAMILY WORKER Seborrheic keratosis ICD-702.19 Inactive Sirisha Chen FAMILY WORKER Bronchitis-Acute ICD-466.0 Inactive Piotr Daley DO Leg pain, right ICD-729.5 Inactive Sirisha Chen FAMILY WORKER Right leg pain ICD-729.5 Inactive Sirisha Chen FAMILY WORKER Bronchitis-Acute ICD-466.0 Inactive Sirisha Chen FAMILY WORKER Knee pain, left ICD-719.46 Inactive Sirisha Chen FAMILY WORKER Actinic keratoses ICD-702.0 Inactive Sirisha Chen FAMILY WORKER Back pain, thoracic region, left ICD-724.1 Inactive Piotr Daley DO Thoracic back pain ICD-724.5 Inactive Sirisha Chen FAMILY WORKER Back pain lumbar ICD-724.2 Inactive Sirisha Chen FAMILY WORKER Insect bite ICD-919.4 Inactive Sirisha Chen FAMILY WORKER Pruritus ICD-698.9 Inactive Sirisha Chen FAMILY WORKER 04/09 Medication List Medication Instructions Start Date Stop Date Generic Name NDC Status Provider Patient Instruction TESSALON PERLES 100 MG ORAL CAPSULE 1-2 tablet by mouth 3 times daily 04/16 BENZONATATE 35983164460 Active Piotr Daley DO Active PREDNISONE 10 MG ORAL TABLET 1 tablet by mouth daily PREDNISONE 94463072867 Active Piotr Daley DO Active PREDNISONE 20 MG ORAL TABLET two tabs by mouth today, then one tab by mouth days two and three PREDNISONE 16277381587 No Longer Active Piotr Daley DO Active CYCLOBENZAPRINE HCL 10 MG ORAL TABLET 1 tablet by mouth three times daily as needed for muscle spasm/pain CYCLOBENZAPRINE HCL 71914900184 Active Piotr Daley DO Active ZITHROMAX 250 MG ORAL TABLET Take two (2 ) tablets day one, then one (1) tablet a day for four (4) more days AZITHROMYCIN 26786394384 No Longer Active Piotr Daley DO Active PROAIR HFA 108 (90 BASE) MCG/ACT INHALATION AEROSOL SOLUTION 1-2 puffs four times a day as needed ALBUTEROL SULFATE 24282975477 No Longer Active Emelyn Norris Active DOXYCYCLINE HYCLATE 100 MG ORAL CAPSULE 1 cap by mouth BID x10 days DOXYCYCLINE HYCLATE 74877726965 No Longer Active Nella Harris APRN Active WARFARIN SODIUM 5 MG ORAL TABLET 1 tablet daily M-S, 1/2 tab on Heart WARFARIN SODIUM 66640297965 Active Piotr Daley DO Active PREDNISONE 20 MG ORAL TABLET 2 tabs daily for 3 days, 1 tab daily for 3 days, 1/2 tab daily for 2 days PREDNISONE 64418905413 No Longer Active Matthew Rangel MD Active TRAMADOL HCL 50 MG ORAL TABLET 1 po tid with ES Tylenol TRAMADOL HCL 80772970097 No Longer Active Matthew Rangel MD Active GABAPENTIN 300 MG ORAL CAPSULE 1 po q hs for nerve pain GABAPENTIN 75826465543 No Longer Active Matthew Rangel MD Active PREDNISONE 20 MG ORAL TABLET 2 tablets today, then 1 tablet days 2 through 4 PREDNISONE 82551226218 No Longer Active Piotr Daley DO Active AZITHROMYCIN 250 MG ORAL TABLET 2 po qd x 1 day, then 1 po qd x 4 days 07/12 AZITHROMYCIN 07982721519 No Longer Active Piotr Daley DO Active IBUPROFEN 800 MG ORAL TABLET 1 tab every 8 hours as needed 07/12 IBUPROFEN 25448086340 No Longer Active Piotr Daley DO Active LOMOTIL 2.5-0.025 MG ORAL TABLET 1 to 2 four times a day as needed for diarrhea DIPHENOXYLATE-ATROPINE 56956895229 No Longer Active Piotr Daley DO Active WARFARIN SODIUM 4 MG ORAL TABLET 1 tab every evening WARFARIN SODIUM 25596441882 No Longer Active Piotr Daley DO Active PREDNISONE 20 MG ORAL TABLET 1 tablet twice daily for 2 days, then 1 tablet once daily for 2 days PREDNISONE 74857643801 No Longer Active Piotr Daley DO Active PROMETHAZINE HCL 25 MG ORAL TABLET 1 four times a day as needed for nausea/ vomiting PROMETHAZINE HCL 41543323029 No Longer Active Piotr Daley DO Active TUSSIONEX PENNKINETIC ER 10-8 MG/5ML ORAL SUSPENSION EXTENDED RELEASE 5ml po q12hr PRN Cough HYDROCOD POLST-CHLORPHEN POLST 69581404296 No Longer Active Piotr Daley DO Active AZITHROMYCIN 250 MG ORAL TABLET 2 po qd x 1 day, then 1 po qd x 4 days 10/13 AZITHROMYCIN 18849774263 No Longer Active Piotr Daley DO Active AZITHROMYCIN 250 MG ORAL TABLET 2 po qd x 1 day, then 1 po qd x 4 days 05/07 AZITHROMYCIN 05061257754 No Longer Active Piotr Dlaey DO Active LISINOPRIL-HYDROCHLOROTHIAZIDE 10-12.5 MG ORAL TABLET 1 tab by mouth daily LISINOPRIL-HYDROCHLOROTHIAZIDE 01192723937 Active Piotr Daley DO Active LISINOPRIL 10 MG ORAL TABLET 1/2-1 tab po every other day LISINOPRIL 62221568307 No Longer Active Piotr Daley DO Active VENTOLIN HFA 108 (90 Base) MCG/ACT INHALATION AEROSOL SOLUTION 2 puffs four times a day PRN cough ALBUTEROL SULFATE 53616982155 No Longer Active Piotr Daley DO Active NYSTATIN-TRIAMCINOLONE 973892-2.1 UNIT/GM-% EXTERNAL CREAM Apply to area BID NYSTATIN-TRIAMCINOLONE 21436977632 No Longer Active Alena Chavira FAMILY WORKER Active PHISOHEX 3 % LIQD Use Directed HEXACHLOROPHENE 37744406970 No Longer Active Sandra Salinas Active AZITHROMYCIN 250 MG ORAL TABLET 2 po qd x 1 day, then 1 po qd x 4 days 10/21 AZITHROMYCIN 25235795239 No Longer Active Katrina Rinaldi MD PhD Active AZITHROMYCIN 250 MG ORAL TABLET 2 po qd x 1 day, then 1 po qd x 4 days 10/16 AZITHROMYCIN 46662994697 No Longer Active Piotr Daley DO Active AZITHROMYCIN 500 MG INTRAVENOUS SOLUTION RECONSTITUTED 1 po q day AZITHROMYCIN 09542055858 No Longer Active Piotr Daley DO Active NYSTATIN-TRIAMCINOLONE 400029-4.1 UNIT/GM-% EXTERNAL CREAM apply bid NYSTATIN-TRIAMCINOLONE 92518484970 No Longer Active Piotr Daley DO Active IBUPROFEN 800 MG ORAL TABLET 1 po q 8 hours prn pain sparinly IBUPROFEN 51657353963 No Longer Active Piotr Daley DO Active VITAMIN D3 5000 UNIT ORAL CAPSULE 1 po daily CHOLECALCIFEROL 05175275308 Active Piotr Daley DO Active IBUPROFEN 800 MG ORAL TABLET 1 po q 8 hours prn pain sparinly IBUPROFEN 800 MG ORAL TABLET 727840 IBUPROFEN Inactive NYSTATIN-TRIAMCINOLONE 910898-5.1 UNIT/GM-% EXTERNAL CREAM apply bid NYSTATIN-TRIAMCINOLONE 696198-4.1 UNIT/GM-% EXTERNAL CREAM 0366333 NYSTATIN-TRIAMCINOLONE Inactive AZITHROMYCIN 500 MG INTRAVENOUS SOLUTION RECONSTITUTED 1 po q day AZITHROMYCIN 500 MG INTRAVENOUS SOLUTION RECONSTITUTED 08540031074 AZITHROMYCIN Inactive VENTOLIN HFA 108 (90 Base) MCG/ACT INHALATION AEROSOL SOLUTION 2 puffs four times a day PRN cough VENTOLIN HFA 108 (90 Base) MCG/ ACT INHALATION AEROSOL SOLUTION ALBUTEROL SULFATE Inactive LISINOPRIL 10 MG ORAL TABLET 1/2-1 tab po every other day LISINOPRIL 10 MG ORAL TABLET 965701 LISINOPRIL Inactive TUSSIONEX PENNKINETIC ER 10-8 MG/5ML ORAL SUSPENSION EXTENDED RELEASE 5ml po q12hr PRN Cough TUSSIONEX PENNKINETIC ER 10-8 MG/5ML ORAL SUSPENSION EXTENDED RELEASE HYDROCOD POLST-CHLORPHEN POLST Inactive PROMETHAZINE HCL 25 MG ORAL TABLET 1 four times a day as needed for nausea/ vomiting PROMETHAZINE HCL 25 MG ORAL TABLET 117560 PROMETHAZINE HCL Inactive PREDNISONE 20 MG ORAL TABLET 1 tablet twice daily for 2 days, then 1 tablet once daily for 2 days PREDNISONE 20 MG ORAL TABLET 047528 PREDNISONE Inactive WARFARIN SODIUM 4 MG ORAL TABLET 1 tab every evening WARFARIN SODIUM 4 MG ORAL TABLET 592184 WARFARIN SODIUM Inactive LOMOTIL 2.5-0.025 MG ORAL TABLET 1 to 2 four times a day as needed for diarrhea LOMOTIL 2.5-0.025 MG ORAL TABLET 4482106 DIPHENOXYLATE-ATROPINE Inactive IBUPROFEN 800 MG ORAL TABLET 1 tab every 8 hours as needed 07/12 IBUPROFEN 800 MG ORAL TABLET 709050 IBUPROFEN Inactive PREDNISONE 20 MG ORAL TABLET 2 tablets today, then 1 tablet days 2 through 4 PREDNISONE 20 MG ORAL TABLET 323447 PREDNISONE Inactive GABAPENTIN 300 MG ORAL CAPSULE 1 po q hs for nerve pain GABAPENTIN 300 MG ORAL CAPSULE 004779 GABAPENTIN Inactive TRAMADOL HCL 50 MG ORAL TABLET 1 po tid with ES Tylenol TRAMADOL HCL 50 MG ORAL TABLET 832326 TRAMADOL HCL Inactive PROAIR HFA 108 (90 BASE) MCG/ACT INHALATION AEROSOL SOLUTION 1-2 puffs four times a day as needed PROAIR HFA 108 (90 BASE) MCG/ACT INHALATION AEROSOL SOLUTION ALBUTEROL SULFATE Inactive PREDNISONE 20 MG ORAL TABLET two tabs by mouth today, then one tab by mouth days two and three PREDNISONE 20 MG ORAL TABLET 847207 PREDNISONE Inactive AZITHROMYCIN 250 MG ORAL TABLET 2 po qd x 1 day, then 1 po qd x 4 days 10/16 AZITHROMYCIN 250 MG ORAL TABLET 699902 AZITHROMYCIN Inactive AZITHROMYCIN 250 MG ORAL TABLET 2 po qd x 1 day, then 1 po qd x 4 days 10/21 AZITHROMYCIN 250 MG ORAL TABLET 923806 AZITHROMYCIN Inactive NYSTATIN-TRIAMCINOLONE 909928-1.1 UNIT/GM-% EXTERNAL CREAM Apply to area BID NYSTATIN-TRIAMCINOLONE 218509-8.1 UNIT/GM-% EXTERNAL CREAM 0346092 NYSTATIN-TRIAMCINOLONE Inactive AZITHROMYCIN 250 MG ORAL TABLET 2 po qd x 1 day, then 1 po qd x 4 days 05/07 AZITHROMYCIN 250 MG ORAL TABLET 813335 AZITHROMYCIN Inactive AZITHROMYCIN 250 MG ORAL TABLET 2 po qd x 1 day, then 1 po qd x 4 days 10/13 AZITHROMYCIN 250 MG ORAL TABLET 095221 AZITHROMYCIN Inactive AZITHROMYCIN 250 MG ORAL TABLET 2 po qd x 1 day, then 1 po qd x 4 days 07/12 AZITHROMYCIN 250 MG ORAL TABLET 033651 AZITHROMYCIN Inactive PREDNISONE 20 MG ORAL TABLET 2 tabs daily for 3 days, 1 tab daily for 3 days, 1/2 tab daily for 2 days PREDNISONE 20 MG ORAL TABLET 873682 PREDNISONE Inactive DOXYCYCLINE HYCLATE 100 MG ORAL CAPSULE 1 cap by mouth BID x10 days DOXYCYCLINE HYCLATE 100 MG ORAL CAPSULE 4855806 DOXYCYCLINE HYCLATE Inactive ZITHROMAX 250 MG ORAL TABLET Take two (2 ) tablets day one, then one (1) tablet a day for four (4) more days ZITHROMAX 250 MG ORAL TABLET 227725 AZITHROMYCIN Inactive Advance Directives Directive Description Start [...] Panel - Chemistry sodium, serum 141 mmol/L 742-930 6547/01/24 potassium, serum 4.3 mmol/L 3.5-5.2 chloride, serum [...] % 11.0-15.0 platelet count 172 THOUSAND/UL 10*3/mm3 946-351 2418/04/12 mean platelet volume 8.6 fL 7.5-12.5 Lab Report: Prothrombin Time - Coagulation prothrombin time (patient) 27.8 SECS s 11.1-13.4 international normalized ratio (INR) 4.2 1.0-3.5 Lab Report: Prothrombin Time Hemochron - Coagulation prothrombin time (patient) 33.0 SECS s 18.9-24.9 Encounters Code Encounter Date Provider Facility CPT-22377 Level 3 Est. Patient 12:33:59 [employer]RIBUTION CENTER ADMINISTRATOR Piotr Daley [facility] CPT-30992 Level 3 Est. Patient 15:56:17 DISTRIBUTION CENTER ADMINISTRATOR Piotr Daley [facility] CPT-71252 Level 3 Est. Patient 10:34:54 DISTRIBUTION CENTER ADMINISTRATOR Piotr Daley [facility] CPT-47946 Level 3 Est. Patient 17:10:19 [facility] Est. Patient 10:48:17 DISTRIBUTION CENTER ADMINISTRATOR Matthew Rangel MD [facility] CPT-86373 Level 4 Est. Patient 17:15:07 DISTRIBUTION CENTER ADMINISTRATOR Piotr Daley [facility] CPT-60117 Level 3 Est. Patient 12:46:13 DISTRIBUTION CENTER ADMINISTRATOR Piotr Daley [facility] CPT-08760 Level 3 Est. Patient 15:14:31 DISTRIBUTION CENTER ADMINISTRATOR Piotr Daley [facility] CPT-20965 Level 3 Est. Patient 09:20:13 DISTRIBUTION CENTER ADMINISTRATOR Piotr Daley [facility] CPT-42798 Level 3 Est. Patient 09:49:40 CDT Piotr W [facility] CPT-81362 Level 3 Est. Patient 16:28:[address] [facility] CPT-10149 Level 3 Est. Patient 12:41:58 DISTRIBUTION CENTER ADMINISTRATOR Piotr Daley [facility] CPT-62617 Level 3 Est. Patient 09:21:24 CDT Piotr Daley [facility] CPT-70276 Level 3 Est. Patient 09:21:11 CDT Piotr Daley [facility] CPT-46453 Level 3 Est. Patient 11:16:29 DISTRIBUTION CENTER ADMINISTRATOR Piotr Daley [facility] CPT-28988 Level 3 Est. Patient 18:40:19 DISTRIBUTION CENTER ADMINISTRATOR Piotr Daley [facility] CPT-01294 Level 3 Est. Patient 19:30:[address] [facility] CPT-39166 Level 3 Est. Patient 22:06:44 CDT Katrina Rinaldi MD PhD [facility] CPT-37507 Level 3 Est. Patient 14:20:[address] [facility] CPT-22284 Level 3 Est. Patient 14:15:22 DISTRIBUTION CENTER ADMINISTRATOR Piotr Daley [facility] CPT-12060 Level 3 Est. Patient 20:19:57 DISTRIBUTION CENTER ADMINISTRATOR Piotr Daley [facility] CPT-43031 Level 3 Est. Patient 16:44:32 CDT Piotr Katie Daley [facility] CPT-89687 Level 3 Est. Patient 08:48:46 DISTRIBUTION CENTER ADMINISTRATOR Piotr Daley [facility] CPT-86903 Level 3 Est. Patient 21:01:21 CDT Piotr Katie Edi [facility] Procedures Code Procedure Name Date Entry Date Standard Description CPT-11828 Chest, 2 views 12:55:58 [employer]RIBUT[employer] CENTER ADMINISTRATOR CPT-G0439 Subsequent Annual Wellness Exam 10:34:52 [employer]RI[employer] CENTER ADMINISTRATOR CPT-09525 BMP - LAB USE ONLY 17:19:11 DISTRIBUT[employer] CENTER ADMINISTRATOR CPT-94867 PT/INR - LAB USE ONLY 17:19:10 DISTRI[employer] CENTER ADMINISTRATOR CPT-47136 Venipuncture Draw Fee 17:19:10 [employer] ADMINISTRATOR CPT-74676 PT/INR - LAB USE ONLY 08:12:25 DISTRIBUT[employer] CENTER ADMINISTRATOR CPT-90532 Venipuncture Draw Fee 08:12:24 DISTRIBUT[employer] CENTER ADMINISTRATOR CPT-98344 Venipuncture Draw Fee 11:31:07 DISTRIBUT[employer] CENTER ADMINISTRATOR CPT-52997 TPSA - LAB USE ONLY 11:31:07 DISTRIBUTION CENTER ADMINISTRATOR CPT-39681 PT/INR - LAB USE ONLY 11:31:07 [facility] CPT-G0439 Subsequent Annual Wellness Exam 09:59:29 DISTRIBUTION CENTER ADMINISTRATOR CPT-88137 Creatinine - LAB USE ONLY 14:37:55 DISTRIBUT[employer] CENTER ADMINISTRATOR CPT-37696 PT/INR - LAB USE ONLY 14:37:55 [facility] CPT-27108 Venipuncture Draw Fee 14:37:55 DISTRIBUTION CENTER ADMINISTRATOR CPT-64261 LS spine comp w obliques - XRAY USE ONLY 12:59:25 DISTRIBUT[employer] CENTER ADMINISTRATOR CPT-13040 PT/INR - LAB USE ONLY 13:49:20 CDT CPT-89673 Venipuncture Draw Fee 13:49:19 CDT CPT-15576 PT/INR - LAB USE ONLY 15:48:49 CDT CPT-58902 Venipuncture Draw Fee 15:48:49 CDT CPT-49830 Venipuncture Draw Fee 11:31:59 CDT CPT-48648 PT/INR - LAB USE ONLY 11:31:59 CDT CPT-51346 Venipuncture Draw Fee 13:29:15 CDT CPT-87308 Thoracolumbar AP/Lat 15:19:19 [employer]RI[employer] C[employer] ADMINISTRATOR CPT-G0438 Initial Annual Wellness Exam 12:18:54 DISTRIBUTION CENTER ADMINISTRATOR CPT-68888 Knee 3V 09:57:38 CDT CPT-OV Office Visit 15:45:01 DISTRIBUT[employer] CENTER ADMINISTRATOR CPT-67814 Abd compl w upright 17:10:25 CDT
--- OUTSIDE RECORDS SUMMARY | 2018-07-18 10:15 | XMS REPORT | Clinical Summary ---
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 Personal history of malignant neoplasm of prostate Coronary artery disease 414.00 Active Alina Meyers APRN Coronary atherosclerosis of unspecified type of vessel, [place] or graft Back pain, thoracic region, left [...] times a day as needed ALBUTEROL SULFATE 89003456927 Active Matthew Rangel MD Active PREDNISONE 20 MG TAB 2 tabs daily for 3 days, 1 tab daily for 3 days, 1/2 tab daily for 2 days PREDNISONE 05031397585 No Longer Active Matthew Rangel MD Active TRAMADOL HCL 50 MG TABS 1 po tid with ES Tylenol TRAMADOL HCL 85275178268 No Longer Active Matthew Rangel MD Active GABAPENTIN 300 MG CAPS 1 po q hs for nerve pain GABAPENTIN 34404920311 No Longer Active Matthew Rangel MD Active WARFARIN SODIUM 5 MG TABS 1 tablet daily WARFARIN SODIUM 66671147117 Active Anahy Loja Active PREDNISONE 20 MG TAB 2 tablets today, then 1 tablet days 2 through 4 PREDNISONE 46384270506 No Longer Active Piotr Daley DO Active AZITHROMYCIN 250 MG TABS 2 po qd x 1 day, then 1 po qd x 4 days AZITHROMYCIN 72081669071 No Longer Active Piotr Daley DO Active IBUPROFEN 800 MG TABS 1 tab every 8 hours as needed IBUPROFEN 48861386986 No Longer Active Piotr Daley DO Active LOMOTIL 2.5-0.025 MG TAB 1 to 2 four times a day as needed for diarrhea 10/13 DIPHENOXYLATE-ATROPINE 33546211517 No Longer Active Piotr Daley DO Active WARFARIN SODIUM 4 MG TABS 1 tab every evening WARFARIN SODIUM 30347649715 No Longer Active Piotr Daley DO Active PREDNISONE 20 MG TAB 1 tablet twice daily for 2 days, then 1 tablet once daily for 2 days PREDNISONE 98793984849 No Longer Active Piotr Daley DO Active PROMETHAZINE HCL 25 MG TABS 1 four times a day as needed for nausea/vomiting PROMETHAZINE HCL 87755363255 No Longer Active Piotr Daley DO Active TUSSIONEX PENNKINETIC ER 10-8 MG/5ML LQCR 5ml po q12hr PRN Cough HYDROCOD POLST-CHLORPHEN POLST 20827295358 No Longer Active Piotr Daley DO Active AZITHROMYCIN 250 MG TABS 2 po qd x 1 day, then 1 po qd x 4 days AZITHROMYCIN 70467130044 No Longer Active Piotr Daley DO Active AZITHROMYCIN 250 MG TABS 2 po qd x 1 day, then 1 po qd x 4 days AZITHROMYCIN 99801945613 No Longer Active Piotr Daley DO Active LISINOPRIL-HYDROCHLOROTHIAZIDE 10-12.5 MG TABS 1 tab by mouth daily LISINOPRIL-HYDROCHLOROTHIAZIDE 95141437458 Active Catalina Freitas Active LISINOPRIL 10 MG TABS 1/2-1 tab po every other day LISINOPRIL 13156160034 No Longer Active Piotr Daley DO Active VENTOLIN HFA 108 (90 BASE) MCG/ACT AERS 2 puffs four times a day PRN cough ALBUTEROL SULFATE 50639260573 No Longer Active Piotr Daley DO Active NYSTATIN-TRIAMCINOLONE 106410-6.1 UNIT/GM-% CREA Apply to area BID NYSTATIN-TRIAMCINOLONE 20022780350 No Longer Active Alena Chavira HEAD WORKER Active PHISOHEX 3 % LIQD Use Directed HEXACHLOROPHENE 98402235760 No Longer Active Sandr[place]ico Salinas Active AZITHROMYCIN 250 MG TABS 2 po qd x 1 day, then 1 po qd x 4 days AZITHROMYCIN 35894957315 No Longer Active Katrina Rinaldi MD PhD Active AZITHROMYCIN 250 MG TABS 2 po qd x 1 day, then 1 po qd x 4 days AZITHROMYCIN 56192245839 No Longer Active Piotr Daley DO Active AZITHROMYCIN 500 MG SOLR 1 po q day AZITHROMYCIN 79296503748 No Longer Active Piotr Daley DO Active NYSTATIN-TRIAMCINOLONE 437762-3.1 UNIT/GM-% CREA apply bid 08/19 NYSTATIN-TRIAMCINOLONE 95341954583 No Longer Active Piotr Daley DO Active IBUPROFEN 800 MG TABS 1 po q 8 hours prn pain sparinly IBUPROFEN 76966389091 No Longer Active Piotr Daley DO Active VITAMIN D3 5000 UNIT CAPS 1 po daily CHOLECALCIFEROL 07197262257 Active Piotr Daley DO Active IBUPROFEN 800 MG TABS 1 po q 8 hours prn pain sparinly IBUPROFEN 800 MG TABS 564642 IBUPROFEN Inactive NYSTATIN-TRIAMCINOLONE 563661-6.1 UNIT/GM-% CREA apply bid 08/19 NYSTATIN-TRIAMCINOLONE 624205-1.1 UNIT/GM-% CREA 5831062 NYSTATIN- TRIAMCINOLONE Inactive AZITHROMYCIN 500 MG SOLR 1 po q day AZITHROMYCIN 500 MG SOLR 66559710320 AZITHROMYCIN Inactive VENTOLIN HFA 108 (90 BASE) MCG/ACT AERS 2 puffs four times a day PRN cough VENTOLIN HFA 108 (90 BASE) MCG/ACT AERS ALBUTEROL SULFATE Inactive LISINOPRIL 10 MG TABS 1/2-1 tab po every other day LISINOPRIL 10 MG TABS 503867 LISINOPRIL Inactive TUSSIONEX PENNKINETIC ER 10-8 MG/5ML LQCR 5ml po q12hr PRN Cough TUSSIONEX PENNKINETIC ER 10-8 MG/5ML LQCR HYDROCOD POLST- CHLORPHEN POLST Inactive PROMETHAZINE HCL 25 MG TABS 1 four times a day as needed for nausea/vomiting PROMETHAZINE HCL 25 MG TABS 992322 PROMETHAZINE HCL Inactive PREDNISONE 20 MG TAB 1 tablet twice daily for 2 days, then 1 tablet once daily for 2 days PREDNISONE 20 MG TAB 135546 PREDNISONE Inactive WARFARIN SODIUM 4 MG TABS 1 tab every evening WARFARIN SODIUM 4 MG TABS 513416 WARFARIN SODIUM Inactive LOMOTIL 2.5-0.025 MG TAB 1 to 2 four times a day as needed for diarrhea 10/13 LOMOTIL 2.5-0.025 MG TAB 9868627 DIPHENOXYLATE-ATROPINE Inactive IBUPROFEN 800 MG TABS 1 tab every 8 hours as needed IBUPROFEN 800 MG TABS 596503 IBUPROFEN Inactive PREDNISONE 20 MG TAB 2 tablets today, then 1 tablet days 2 through 4 PREDNISONE 20 MG TAB 272165 PREDNISONE Inactive GABAPENTIN 300 MG CAPS 1 po q hs for nerve pain GABAPENTIN 300 MG CAPS 609080 GABAPENTIN Inactive TRAMADOL HCL 50 MG TABS 1 po tid with ES Tylenol TRAMADOL HCL 50 MG TABS 440087 TRAMADOL HCL Inactive AZITHROMYCIN 250 MG TABS 2 po qd x 1 day, then 1 po qd x 4 days AZITHROMYCIN 250 MG TABS 9498087 AZITHROMYCIN Inactive AZITHROMYCIN 250 MG TABS 2 po qd x 1 day, then 1 po qd x 4 days AZITHROMYCIN 250 MG TABS 1932676 AZITHROMYCIN Inactive NYSTATIN-TRIAMCINOLONE 939132-6.1 UNIT/GM-% CREA Apply to area BID NYSTATIN-TRIAMCINOLONE 947986-2.1 UNIT/GM-% CREA 4983797 NYSTATIN-TRIAMCINOLONE Inactive AZITHROMYCIN 250 MG TABS 2 po qd x 1 day, then 1 po qd x 4 days AZITHROMYCIN 250 MG TABS 1512849 AZITHROMYCIN Inactive AZITHROMYCIN 250 MG TABS 2 po qd x 1 day, then 1 po qd x 4 days AZITHROMYCIN 250 MG TABS 1446069 AZITHROMYCIN Inactive AZITHROMYCIN 250 MG TABS 2 po qd x 1 day, then 1 po qd x 4 days AZITHROMYCIN 250 MG TABS 8151880 AZITHROMYCIN Inactive PREDNISONE 20 MG TAB 2 tabs daily for 3 days, 1 tab daily for 3 days, 1/2 tab daily for 2 days PREDNISONE 20 MG TAB 295309 PREDNISONE Inactive Advance Directives Directive Description Start [...] Panel - Chemistry sodium, serum 141 mmol/L 368-725 8024/01/24 potassium, serum 4.3 mmol/L 3.5-5.2 chloride, serum [...] % 11.0-15.0 platelet count 172 THOUSAND/UL 10*3/mm3 283-669 2636/04/12 mean platelet volume 8.6 fL 7.5-12.5 Lab Report: Comp. Metabolic Panel - Chemistry sodium, serum 141 mmol/L 692-555 6870/06/28 carbon dioxide, venous blood 31.0 mmol/L 21.0-32.0 [...] ratio (INR) 2.2 1.0-3.5 prothrombin time (patient) 23.1 SECS s 11.1-13.4 international normalized ratio (INR) 3.0 1.0-3.5 prothrombin time (patient) 22.8 SECS s 11.1-13.4 international normalized ratio (INR) 3.0 1.0-3.5 international normalized ratio (INR) 2.3 1.0-3.5 prothrombin time (patient) 23.8 SECS s 11.1-13.4 international normalized ratio (INR) 3.2 1.0-3.5 prothrombin time (patient) 19.8 SECS s 11.1-13.4 international normalized ratio (INR) 1.7 1.0-3.5 prothrombin time (patient) 15.4 SECS s 11.1-13.4 international normalized ratio (INR) 2.5 1.0-3.5 prothrombin time (patient) 20.8 SECS s 11.1-13.4 Encounters Code Encounter Date Provider Facility CPT-00161 Level 3 Est. Patient 10:48:17 FOOD AIDE Matthew Rangel MD [facility] CPT-81341 Level 4 Est. Patient 17:15:07 FOOD AIDE Piotr Wilson [facility] CPT-68121 Level 3 Est. Patient 12:46:13 FOOD AIDE Piotr Daley [facility] CPT-06284 Level 3 Est. Patient 15:14:31 FOOD AIDE Piotr Daley [facility] CPT-95170 Level 3 Est. Patient 09:20:13 FOOD AIDE Piotr Daley [facility] CPT-44319 Level 3 Est. Patient 09:49:40 CDT Piotr Wilson [facility] CPT-76923 Level 3 Est. Patient 16:28:[address] [facility] Level 3 Est. Patient 12:41:58 FOOD AIDE Piotr Daley [facility] CPT-49346 Level 3 Est. Patient 09:21:24 CDT Piotr Daley [facility] CPT-57989 Level 3 Est. Patient 09:21:11 CDT Piotr Daley [facility] CPT-68990 Level 3 Est. Patient 11:16:29 FOOD AIDE Piotr Daley [facility] CPT-87378 Level 3 Est. Patient 18:40:19 FOOD AIDE Piotr Daley [facility] CPT-86666 Level 3 Est. Patient 19:30:50 CDT Piotr Daley [facility] CPT-59115 Level 3 Est. Patient 22:06:44 CDT Katrina Rinaldi MD [facility] CPT-50305 Level 3 Est. Patient 14:20:00 CDT Piotr Daley [facility] CPT-32814 Level 3 Est. Patient 14:15:22 FOOD AIDE Piotr Daley [facility] CPT-43014 Level 3 Est. Patient 20:19:57 FOOD AIDE Piotr Daley [facility] CPT-58292 Level 3 Est. Patient 16:44:32 CDT Piotr Daley [facility] CPT-29026 Level 3 Est. Patient 08:48:46 FOOD AIDE Piotr Daley [facility] CPT-44806 Level 3 Est. Patient 21:01:21 CDT Piotr [facility] Procedures Code Procedure Name Date Entry Date Standard Description CPT-33428 BMP - LAB USE ONLY 17:19:11 FOOD AIDE CPT-64067 PT/INR - LAB USE ONLY 17:19:10 FOOD AIDE CPT-84125 Venipuncture Draw Fee 17:19:10 FOOD AIDE CPT-78381 PT/INR - LAB USE ONLY 08:12:25 FOOD AIDE CPT-88575 Venipuncture Draw Fee 08:12:24 FOOD AIDE CPT-19464 Venipuncture Draw Fee 11:31:07 FOOD AIDE CPT-96932 TPSA - LAB USE ONLY 11:31:07 FOOD AIDE CPT-92694 PT/INR - LAB USE ONLY 11:31:07 FOOD AIDE CPT-G0439 [facility] Annual Wellness Exam 09:59:29 FOOD AIDE CPT-07849 Creatinine - LAB USE ONLY 14:37:55 FOOD AIDE CPT-11502 PT/INR - LAB USE ONLY 14:37:55 FOOD AIDE CPT-41717 Venipuncture Draw Fee 14:37:55 FOOD AIDE CPT-78105 LS spine comp w obliques - XRAY USE ONLY 12:59:25 FOOD AIDE CPT-74445 PT/INR - LAB USE ONLY 13:49:20 CDT CPT-47857 Venipuncture Draw Fee 13:49:19 CDT CPT-51279 PT/INR - LAB USE ONLY 15:48:49 CDT CPT-80464 Venipuncture Draw Fee 15:48:49 CDT CPT-40213 Venipuncture Draw Fee 11:31:59 CDT CPT-00723 PT/INR - LAB USE ONLY 11:31:59 CDT CPT-61725 Venipuncture Draw Fee 13:29:15 CDT CPT-68875 Thoracolumbar AP/Lat 15:19:19 FOOD AIDE CPT-G0438 Initial Annual Wellness Exam 12:18:54 FOOD AIDE CPT-06231 Knee 3V 09:57:38 CDT CPT-OV Office Visit 15:45:01 FOOD AIDE CPT-75207 Abd compl w upright 17:10:25 CDT
--- OUTSIDE RECORDS SUMMARY | 2018-07-18 10:16 | XMS REPORT | Clinical Summary ---
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 Personal history of malignant neoplasm of prostate Coronary artery disease 414.00 Active Alina Meyers APRN Coronary atherosclerosis of unspecified type of vessel, [place] or graft Back pain, thoracic region, left [...] times a day as needed ALBUTEROL SULFATE 90321909995 Active Matthew Rangel MD Active PREDNISONE 20 MG TAB 2 tabs daily for 3 days, 1 tab daily for 3 days, 1/2 tab daily for 2 days PREDNISONE 86135114358 No Longer Active Matthew Rangel MD Active TRAMADOL HCL 50 MG TABS 1 po tid with ES Tylenol TRAMADOL HCL 76351408961 No Longer Active Matthew Rangel MD Active GABAPENTIN 300 MG CAPS 1 po q hs for nerve pain GABAPENTIN 64143520777 No Longer Active Matthew Rangel MD Active WARFARIN SODIUM 5 MG TABS 1 tablet daily WARFARIN SODIUM 50802483013 Active Piotr Daley DO Active PREDNISONE 20 MG TAB 2 tablets today, then 1 tablet days 2 through 4 PREDNISONE 28251499549 No Longer Active Piotr Daley DO Active AZITHROMYCIN 250 MG TABS 2 po qd x 1 day, then 1 po qd x 4 days AZITHROMYCIN 57875017863 No Longer Active Piotr Daley DO Active IBUPROFEN 800 MG TABS 1 tab every 8 hours as needed IBUPROFEN 20420895160 No Longer Active Piotr Daley DO Active LOMOTIL 2.5-0.025 MG TAB 1 to 2 four times a day as needed for diarrhea 10/13 DIPHENOXYLATE-ATROPINE 48396666438 No Longer Active Piotr Daley DO Active WARFARIN SODIUM 4 MG TABS 1 tab every evening WARFARIN SODIUM 30609827309 No Longer Active Piotr Daley DO Active PREDNISONE 20 MG TAB 1 tablet twice daily for 2 days, then 1 tablet once daily for 2 days PREDNISONE 91959156471 No Longer Active Piotr Daley DO Active PROMETHAZINE HCL 25 MG TABS 1 four times a day as needed for nausea/vomiting PROMETHAZINE HCL 42064298392 No Longer Active Piotr Daley DO Active TUSSIONEX PENNKINETIC ER 10-8 MG/5ML LQCR 5ml po q12hr PRN Cough HYDROCOD POLST-CHLORPHEN POLST 18435217123 No Longer Active Piotr Daley DO Active AZITHROMYCIN 250 MG TABS 2 po qd x 1 day, then 1 po qd x 4 days AZITHROMYCIN 92296023891 No Longer Active Piotr Daley DO Active AZITHROMYCIN 250 MG TABS 2 po qd x 1 day, then 1 po qd x 4 days AZITHROMYCIN 70537192752 No Longer Active Piotr Daley DO Active LISINOPRIL-HYDROCHLOROTHIAZIDE 10-12.5 MG TABS 1 tab by mouth daily LISINOPRIL-HYDROCHLOROTHIAZIDE 07861771769 Active Catalina Freitas Active LISINOPRIL 10 MG TABS 1/2-1 tab po every other day LISINOPRIL 71471609631 No Longer Active Piotr Daley DO Active VENTOLIN HFA 108 (90 BASE) MCG/ACT AERS 2 puffs four times a day PRN cough ALBUTEROL SULFATE 87071413028 No Longer Active Piotr Daley DO Active NYSTATIN-TRIAMCINOLONE 813542-9.1 UNIT/GM-% CREA Apply to area BID NYSTATIN-TRIAMCINOLONE 76470824583 No Longer Active Alena Chavira VOCATIONAL NURSE LVN Active PHISOHEX 3 % LIQD Use Directed HEXACHLOROPHENE 20010169673 No Longer Active [place] Sal[place] Active AZITHROMYCIN 250 MG TABS 2 po qd x 1 day, then 1 po qd x 4 days AZITHROMYCIN 31439350117 No Longer Active Katrina Rinaldi MD PhD Active AZITHROMYCIN 250 MG TABS 2 po qd x 1 day, then 1 po qd x 4 days AZITHROMYCIN 00884843736 No Longer Active Piotr Daley DO Active AZITHROMYCIN 500 MG SOLR 1 po q day AZITHROMYCIN 58867063222 No Longer Active Piotr Daley DO Active NYSTATIN-TRIAMCINOLONE 505910-4.1 UNIT/GM-% CREA apply bid 08/19 NYSTATIN-TRIAMCINOLONE 91898934391 No Longer Active Piotr Daley DO Active IBUPROFEN 800 MG TABS 1 po q 8 hours prn pain sparinly IBUPROFEN 19307360582 No Longer Active Piotr Daley DO Active VITAMIN D3 5000 UNIT CAPS 1 po daily CHOLECALCIFEROL 17228693527 Active Piotr Daley DO Active IBUPROFEN 800 MG TABS 1 po q 8 hours prn pain sparinly IBUPROFEN 800 MG TABS 954400 IBUPROFEN Inactive NYSTATIN-TRIAMCINOLONE 217387-5.1 UNIT/GM-% CREA apply bid 08/19 NYSTATIN-TRIAMCINOLONE 174963-6.1 UNIT/GM-% CREA 0366662 NYSTATIN- TRIAMCINOLONE Inactive AZITHROMYCIN 500 MG SOLR 1 po q day AZITHROMYCIN 500 MG SOLR 45776210783 AZITHROMYCIN Inactive VENTOLIN HFA 108 (90 BASE) MCG/ACT AERS 2 puffs four times a day PRN cough VENTOLIN HFA 108 (90 BASE) MCG/ACT AERS ALBUTEROL SULFATE Inactive LISINOPRIL 10 MG TABS 1/2-1 tab po every other day LISINOPRIL 10 MG TABS 150107 LISINOPRIL Inactive TUSSIONEX PENNKINETIC ER 10-8 MG/5ML LQCR 5ml po q12hr PRN Cough TUSSIONEX PENNKINETIC ER 10-8 MG/5ML LQCR HYDROCOD POLST- CHLORPHEN POLST Inactive PROMETHAZINE HCL 25 MG TABS 1 four times a day as needed for nausea/vomiting PROMETHAZINE HCL 25 MG TABS 394635 PROMETHAZINE HCL Inactive PREDNISONE 20 MG TAB 1 tablet twice daily for 2 days, then 1 tablet once daily for 2 days PREDNISONE 20 MG TAB 259979 PREDNISONE Inactive WARFARIN SODIUM 4 MG TABS 1 tab every evening WARFARIN SODIUM 4 MG TABS 505924 WARFARIN SODIUM Inactive LOMOTIL 2.5-0.025 MG TAB 1 to 2 four times a day as needed for diarrhea 10/13 LOMOTIL 2.5-0.025 MG TAB 0695646 DIPHENOXYLATE-ATROPINE Inactive IBUPROFEN 800 MG TABS 1 tab every 8 hours as needed IBUPROFEN 800 MG TABS 800837 IBUPROFEN Inactive PREDNISONE 20 MG TAB 2 tablets today, then 1 tablet days 2 through 4 PREDNISONE 20 MG TAB 292801 PREDNISONE Inactive GABAPENTIN 300 MG CAPS 1 po q hs for nerve pain GABAPENTIN 300 MG CAPS 084198 GABAPENTIN Inactive TRAMADOL HCL 50 MG TABS 1 po tid with ES Tylenol TRAMADOL HCL 50 MG TABS 130508 TRAMADOL HCL Inactive AZITHROMYCIN 250 MG TABS 2 po qd x 1 day, then 1 po qd x 4 days AZITHROMYCIN 250 MG TABS 5469970 AZITHROMYCIN Inactive AZITHROMYCIN 250 MG TABS 2 po qd x 1 day, then 1 po qd x 4 days AZITHROMYCIN 250 MG TABS 8692099 AZITHROMYCIN Inactive NYSTATIN-TRIAMCINOLONE 352076-0.1 UNIT/GM-% CREA Apply to area BID NYSTATIN-TRIAMCINOLONE 704684-4.1 UNIT/GM-% CREA 2185848 NYSTATIN-TRIAMCINOLONE Inactive AZITHROMYCIN 250 MG TABS 2 po qd x 1 day, then 1 po qd x 4 days AZITHROMYCIN 250 MG TABS 3937201 AZITHROMYCIN Inactive AZITHROMYCIN 250 MG TABS 2 po qd x 1 day, then 1 po qd x 4 days AZITHROMYCIN 250 MG TABS 3935776 AZITHROMYCIN Inactive AZITHROMYCIN 250 MG TABS 2 po qd x 1 day, then 1 po qd x 4 days AZITHROMYCIN 250 MG TABS 5737890 AZITHROMYCIN Inactive PREDNISONE 20 MG TAB 2 tabs daily for 3 days, 1 tab daily for 3 days, 1/2 tab daily for 2 days PREDNISONE 20 MG TAB 560660 PREDNISONE Inactive Advance Directives Directive Description Start [...] Panel - Chemistry sodium, serum 141 mmol/L 734-443 6431/01/24 potassium, serum 4.3 mmol/L 3.5-5.2 chloride, serum [...] % 11.0-15.0 platelet count 172 THOUSAND/UL 10*3/mm3 880-213 1196/04/12 mean platelet volume 8.6 fL 7.5-12.5 Lab Report: Comp. Metabolic Panel - Chemistry sodium, serum 141 mmol/L 398-756 9303/06/28 carbon dioxide, venous blood 31.0 mmol/L 21.0-32.0 [...] 11.1-13.4 international normalized ratio (INR) 3.0 1.0-3.5 Encounters Code Encounter Date Provider Facility CPT-30464 Level 3 Est. Patient 10:48:17 IMPLEMENT MECHANIC Matthew Rangel MD [facility] CPT-74333 Level 4 Est. Patient 17:15:07 IMPLEMENT MECHANIC Piotr Wilson [facility] CPT-56211 Level 3 Est. Patient 12:46:13 IMPLEMENT MECHANIC Piotr Daley [facility] CPT-27645 Level 3 Est. Patient 15:14:31 IMPLEMENT MECHANIC Piotr Daley [facility] CPT-73469 Level 3 Est. Patient 09:20:13 IMPLEMENT MECHANIC Piotr Daley [facility] CPT-15526 Level 3 Est. Patient 09:49:40 CDT Piotr Wilson [facility] CPT-80685 Level 3 Est. Patient 16:28:11 [facility] Level 3 Est. Patient 12:41:58 IMPLEMENT MECHANIC Piotr Daley [facility] CPT-11578 Level 3 Est. Patient 09:21:24 CDT Piotr Daley [facility] CPT-71735 Level 3 Est. Patient 09:21:11 CDT Piotr Daley [facility] CPT-99018 Level 3 Est. Patient 11:16:29 IMPLEMENT MECHANIC Piotr Daley [facility] CPT-64436 Level 3 Est. Patient 18:40:19 IMPLEMENT MECHANIC Piotr Daley [facility] CPT-19359 Level 3 Est. Patient 19:30:50 CDT Piotr Daley [facility] CPT-81264 Level 3 Est. Patient 22:06:44 CDT Katrina Rinaldi MD [facility] CPT-54316 Level 3 Est. Patient 14:20:00 CDT Piotr Daley [facility] CPT-07657 Level 3 Est. Patient 14:15:22 IMPLEMENT MECHANIC Piotr Daley [facility] CPT-02957 Level 3 Est. Patient 20:19:57 IMPLEMENT MECHANIC Piotr Daley [facility] CPT-82546 Level 3 Est. Patient 16:44:32 CDT Piotr Daley [facility] CPT-21624 Level 3 Est. Patient 08:48:46 IMPLEMENT MECHANIC Piotr Daley [facility] CPT-94265 Level 3 Est. Patient 21:01:21 CDT Piotr Wilson [facility] Procedures Code Procedure Name Date Entry Date Standard Description CPT-23202 BMP - LAB USE ONLY 17:19:11 IMPLEMENT MECHANIC CPT-87775 PT/INR - LAB USE ONLY 17:19:10 IMPLEMENT MECHANIC CPT-94090 Venipuncture Draw Fee 17:19:10 IMPLEMENT MECHANIC CPT-06385 PT/INR - LAB USE ONLY 08:12:25 IMPLEMENT MECHANIC CPT-37600 Venipuncture Draw Fee 08:12:24 IMPLEMENT MECHANIC CPT-13987 Venipuncture Draw Fee 11:31:07 IMPLEMENT MECHANIC CPT-51069 TPSA - LAB USE ONLY 11:31:07 IMPLEMENT MECHANIC CPT-87974 PT/INR - LAB USE ONLY 11:31:07 IMPLEMENT MECHANIC CPT-G0439 [facility] Annual Wellness Exam 09:59:29 IMPLEMENT MECHANIC CPT-73383 Creatinine - LAB USE ONLY 14:37:55 IMPLEMENT MECHANIC CPT-72729 PT/INR - LAB USE ONLY 14:37:55 IMPLEMENT MECHANIC CPT-41446 Venipuncture Draw Fee 14:37:55 IMPLEMENT MECHANIC CPT-81227 LS spine comp w obliques - XRAY USE ONLY 12:59:25 IMPLEMENT MECHANIC CPT-18997 PT/INR - LAB USE ONLY 13:49:20 CDT CPT-69119 Venipuncture Draw Fee 13:49:19 CDT CPT-19745 PT/INR - LAB USE ONLY 15:48:49 CDT CPT-19668 Venipuncture Draw Fee 15:48:49 CDT CPT-88396 Venipuncture Draw Fee 11:31:59 CDT CPT-41930 PT/INR - LAB USE ONLY 11:31:59 CDT CPT-05978 Venipuncture Draw Fee 13:29:15 CDT CPT-71381 Thoracolumbar AP/Lat 15:19:19 IMPLEMENT MECHANIC CPT-G0438 Initial Annual Wellness Exam 12:18:54 IMPLEMENT MECHANIC CPT-77935 Knee 3V 09:57:38 CDT CPT-OV Office Visit 15:45:01 IMPLEMENT MECHANIC CPT-93608 Abd compl w upright 17:10:25 CDT
--- OUTSIDE RECORDS SUMMARY | 2018-07-18 10:17 | XMS REPORT | Clinical Summary ---
Author Author Admin, E Organization [employer] Address Unknown Phone Unavailable Allergies, Adverse Reactions, [...] po tid with ES Tylenol TRAMADOL HCL 56760310996 Active Piotr Daley DO Active WARFARIN SODIUM 5 MG TABS 1 tablet daily except for Saturday and Sat 1/2 tablet. WARFARIN SODIUM 41964460313 Active Hilary Ma MA Active PREDNISONE 20 MG TAB 2 tablets today, then 1 tablet days 2 through 4 PREDNISONE 07796276182 No Longer Active Piotr Daley DO Active AZITHROMYCIN 250 MG TABS 2 po qd x 1 day, then 1 po qd x 4 days AZITHROMYCIN 50924002772 No Longer Active Piotr Daley DO Active IBUPROFEN 800 MG TABS 1 tab every 8 hours as needed IBUPROFEN 64276788854 No Longer Active Piotr Daley DO Active LOMOTIL 2.5-0.025 MG TAB 1 to 2 four times a day as needed for diarrhea 10/13 DIPHENOXYLATE-ATROPINE 37514705574 No Longer Active Piotr Daley DO Active WARFARIN SODIUM 4 MG TABS 1 tab every evening WARFARIN SODIUM 27406451909 No Longer Active Piotr Daley DO Active PREDNISONE 20 MG TAB 1 tablet twice daily for 2 days, then 1 tablet once daily for 2 days PREDNISONE 00459950394 No Longer Active Piotr Daley DO Active PROMETHAZINE HCL 25 MG TABS 1 four times a day as needed for nausea/vomiting PROMETHAZINE HCL 67757495386 No Longer Active Piotr Daley DO Active TUSSIONEX PENNKINETIC ER 10-8 MG/5ML LQCR 5ml po q12hr PRN Cough HYDROCOD POLST-CHLORPHEN POLST 83046504176 No Longer Active Piotr Daley DO Active AZITHROMYCIN 250 MG TABS 2 po qd x 1 day, then 1 po qd x 4 days AZITHROMYCIN 69393482542 No Longer Active Piotr Daley DO Active AZITHROMYCIN 250 MG TABS 2 po qd x 1 day, then 1 po qd x 4 days AZITHROMYCIN 03845035600 No Longer Active Piotr Daley DO Active LISINOPRIL-HYDROCHLOROTHIAZIDE 10-12.5 MG TABS 1 tab by mouth daily LISINOPRIL-HYDROCHLOROTHIAZIDE 83090748979 Active Hilary Ma MA Active LISINOPRIL 10 MG TABS 1/2-1 tab po every other day LISINOPRIL 96819016440 No Longer Active Piotr Daley DO Active VENTOLIN HFA 108 (90 BASE) MCG/ACT AERS 2 puffs four times a day PRN cough ALBUTEROL SULFATE 33936747588 No Longer Active Piotr Daley DO Active NYSTATIN-TRIAMCINOLONE 235156-3.1 UNIT/GM-% CREA Apply to area BID NYSTATIN-TRIAMCINOLONE 14869127426 No Longer Active Alena Chavira CIGAR TOBACCO PROCESSING SUPERVISOR Active PHISOHEX 3 % LIQD Use Directed HEXACHLOROPHENE 98938547234 No Longer Active Sandra Higdon Active AZITHROMYCIN 250 MG TABS 2 po qd x 1 day, then 1 po qd x 4 days AZITHROMYCIN 42971708803 No Longer Active Katrina Rinaldi MD PhD Active AZITHROMYCIN 250 MG TABS 2 po qd x 1 day, then 1 po qd x 4 days AZITHROMYCIN 63044686983 No Longer Active Piotr Daley DO Active AZITHROMYCIN 500 MG SOLR 1 po q day AZITHROMYCIN 21098691000 No Longer Active Piotr Daley DO Active NYSTATIN-TRIAMCINOLONE 485833-4.1 UNIT/GM-% CREA apply bid 08/19 NYSTATIN-TRIAMCINOLONE 17509461978 No Longer Active Piotr Daley DO Active IBUPROFEN 800 MG TABS 1 po q 8 hours prn pain sparinly IBUPROFEN 39092882916 No Longer Active Piotr Daley DO Active VITAMIN D3 5000 UNIT CAPS 1 po daily CHOLECALCIFEROL 94645443714 Active Piotr Daley DO Active IBUPROFEN 800 MG TABS 1 po q 8 hours prn pain sparinly IBUPROFEN 800 MG TABS 688649 IBUPROFEN Inactive NYSTATIN-TRIAMCINOLONE 049862-1.1 UNIT/GM-% CREA apply bid 08/19 NYSTATIN-TRIAMCINOLONE 019481-0.1 UNIT/GM-% CREA 2795399 NYSTATIN- TRIAMCINOLONE Inactive AZITHROMYCIN 500 MG SOLR 1 po q day AZITHROMYCIN 500 MG SOLR 82974339494 AZITHROMYCIN Inactive VENTOLIN HFA 108 (90 BASE) MCG/ACT AERS 2 puffs four times a day PRN cough VENTOLIN HFA 108 (90 BASE) MCG/ACT AERS ALBUTEROL SULFATE Inactive LISINOPRIL 10 MG TABS 1/2-1 tab po every other day LISINOPRIL 10 MG TABS 880868 LISINOPRIL Inactive TUSSIONEX PENNKINETIC ER 10-8 MG/5ML LQCR 5ml po q12hr PRN Cough TUSSIONEX PENNKINETIC ER 10-8 MG/5ML LQCR HYDROCOD POLST- CHLORPHEN POLST Inactive PROMETHAZINE HCL 25 MG TABS 1 four times a day as needed for nausea/vomiting PROMETHAZINE HCL 25 MG TABS 037440 PROMETHAZINE HCL Inactive PREDNISONE 20 MG TAB 1 tablet twice daily for 2 days, then 1 tablet once daily for 2 days PREDNISONE 20 MG TAB 774948 PREDNISONE Inactive WARFARIN SODIUM 4 MG TABS 1 tab every evening WARFARIN SODIUM 4 MG TABS 557652 WARFARIN SODIUM Inactive LOMOTIL 2.5-0.025 MG TAB 1 to 2 four times a day as needed for diarrhea 10/13 LOMOTIL 2.5-0.025 MG TAB 0207010 DIPHENOXYLATE-ATROPINE Inactive IBUPROFEN 800 MG TABS 1 tab every 8 hours as needed IBUPROFEN 800 MG TABS 196046 IBUPROFEN Inactive PREDNISONE 20 MG TAB 2 tablets today, then 1 tablet days 2 through 4 PREDNISONE 20 MG TAB 601166 PREDNISONE Inactive AZITHROMYCIN 250 MG TABS 2 po qd x 1 day, then 1 po qd x 4 days AZITHROMYCIN 250 MG TABS 3342815 AZITHROMYCIN Inactive AZITHROMYCIN 250 MG TABS 2 po qd x 1 day, then 1 po qd x 4 days AZITHROMYCIN 250 MG TABS 1440216 AZITHROMYCIN Inactive NYSTATIN-TRIAMCINOLONE 026236-7.1 UNIT/GM-% CREA Apply to area BID NYSTATIN-TRIAMCINOLONE 894790-9.1 UNIT/GM-% CREA 6778276 NYSTATIN-TRIAMCINOLONE Inactive AZITHROMYCIN 250 MG TABS 2 po qd x 1 day, then 1 po qd x 4 days AZITHROMYCIN 250 MG TABS 9153949 AZITHROMYCIN Inactive AZITHROMYCIN 250 MG TABS 2 po qd x 1 day, then 1 po qd x 4 days AZITHROMYCIN 250 MG TABS 6657571 AZITHROMYCIN Inactive AZITHROMYCIN 250 MG TABS 2 po qd x 1 day, then 1 po qd x 4 days AZITHROMYCIN 250 MG TABS 7516356 AZITHROMYCIN Inactive Advance Directives Directive Description Start [...] mg/g mg/g{creat} 0-29 sodium, serum 140 mmol/L 116-445 2840/07/17 potassium, serum 4.2 mmol/L 3.5-5.2 chloride, serum [...] 5.0-8.5 Encounters Code Encounter Date Provider Facility CPT-38442 Level 3 Est. Patient 15:14:31 LINOTYPE WORKER [address]iot[address] Daley [facility] CPT-07330 Level 3 Est. Patient 09:20:13 LINOTYPE WORKER Piotr Daley [facility]-50876 Level 3 Est. Patient 09:49:40 CDT Piotr Wilson [facility]-71221 Level 3 Est. Patient 16:28:[address] [facility] CPT-73731 Level 3 Est. Patient 12:41:58 LINOTYPE WORKER Piotr Daley [facility] CPT-09445 Level 3 Est. Patient 09:21:24 CDT Piotr Daley [facility]-59196 Level 3 Est. Patient 09:21:11 CDT Piotr Wilson [facility]-30896 Level 3 Est. Patient 11:16:29 LINOTYPE WORKER Piotr Daley [facility] CPT-48364 Level 3 Est. Patient 18:40:19 LINOTYPE WORKER Piotr Wilson [facility] CPT-15443 Level 3 Est. Patient 19:30:50 CDT Piotr Wilson [facility]-83099 Level 3 Est. Patient 22:06:44 CDT Katrina Rinaldi MD PhD [facility]-49827 Level 3 Est. Patient 14:20:00 CDT Piotr W [facility] CPT-98052 Level 3 Est. Patient 14:15:22 LINOTYPE WORKER Piotr Wilson [facility] CPT-54687 Level 3 Est. Patient 20:19:57 LINOTYPE WORKER Piotr Wilson [facility] CPT-56212 Level 3 Est. Patient 16:44:[address] [facility] CPT-32952 Level 3 Est. Patient 08:48:46 LINOTYPE WORKER Piotr Wilson [facility] CPT-88217 Level 3 Est. Patient 21:01:21 CDT Piotr Wilson [facility] Procedures Code Procedure Name Date Entry Date Standard Description CPT-21708 Thoracolumbar AP/Lat 15:19:19 LINOTYPE WORKER CPT-G0438 Initial Annual Wellness Exam 12:18:54 LINOTYPE WORKER CPT-81460 Knee 3V 09:57:38 CDT CPT-OV Office Visit 15:45:01 LINOTYPE WORKER CPT-74819 Abd compl w upright 17:10:25 CDT
--- OUTSIDE RECORDS SUMMARY | 2018-07-18 10:18 | XMS REPORT | Clinical Summary ---
Author Author Admin, [employer] Organization [employer] Address Unknown Phone Unavailable Allergies, Adverse Reactions, [...] neoplasm of prostate V10.46 Active Alina Meyers CASE FILLER Personal history of malignant neoplasm of prostate Coronary artery disease 414.00 Active Alina Meyers APRN Coronary atherosclerosis of unspecified type of vessel, knik or graft Back pain, thoracic region, left [...] Daley DO SCREENING, COLON CANCER ICD-V76.51 Inactive Ktarina Rinaldi MD PhD BRONCHITIS-ACUTE ICD-466.0 Inactive Piotr Daley DO DEEP VENOUS THROMBOPHLEBITIS, LEG, 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 Inactive Sirisha Chen SUPERVISOR [employer]IPMENT DEEP VENOUS THROMBOPHLEBITIS, LEG, 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 Inactive Sirisha Chen SUPERVISOR [employer]MENT Seborrheic keratosis ICD-702.19 Inactive Sirisha Chen SUPERVISOR [employer]MENT Bronchitis-Acute ICD-466.0 Inactive Piotr Daley DO Leg pain, right ICD-729.5 Inactive Sirisha Chne SUPERVISOR HE[employer] EQUIPMENT Right leg pain ICD-729.5 Inactive Sirisha Chen SUPERVISOR HE[employer] EQUIPMENT Bronchitis-Acute ICD-466.0 Inactive Sirisha Chen SUPERVISOR HE[employer] EQUIPMENT Knee pain, left ICD-719.46 Inactive Sirisha Chen SUPERVISOR HE[employer] EQU[employer]MENT Actinic keratoses ICD-702.0 Inactive Sirisha Chen SUPERVISOR HE[employer] EQUIPMENT Back pain, thoracic region, left ICD-724.1 Inactive Piotr Daley DO Thoracic back pain ICD-724.5 Inactive Sirisha Chen SUPERVISOR HE[employer]QUIPMENT Back pain lumbar ICD-724.2 Inactive Sirisha Chen SUPERVISOR HE[employer] EQUIPMENT Insect bite ICD-919.4 Inactive Sirisha Chen SUPERVISOR HEAV[employer] EQUIPMENT Pruritus ICD-698.9 Inactive Sirisha Chne SUPERVISOR HEAV[employer] EQUIPMENT 04/09 Medication List Medication Instructions Start Date Stop Date Generic Name NDC Status Provider Patient Instruction WARFARIN SODIUM 5 MG ORAL TABLET 1 tablet daily M, T, T, F, Sa, 1/2 tab on W, Heart WARFARIN SODIUM 46341502061 Active Sirisha Gustavo LOO Active TESSALON PERLES 100 MG ORAL CAPSULE 1-2 tablet by mouth 3 times daily 04/16 BENZONATATE 47083333633 Active Piotr Daley DO Active PREDNISONE 10 MG ORAL TABLET 1 tablet by mouth daily PREDNISONE 02114434400 Active Piotr Daley DO Active PREDNISONE 20 MG ORAL TABLET two tabs by mouth today, then one tab by mouth days two and three PREDNISONE 97515446215 No Longer Active Piotr Daley DO Active CYCLOBENZAPRINE HCL 10 MG ORAL TABLET 1 tablet by mouth three times daily as needed for muscle spasm/pain CYCLOBENZAPRINE HCL 55274613046 Active Piotr Daley DO Active ZITHROMAX 250 MG ORAL TABLET Take two (2 ) tablets day one, then one (1) tablet a day for four (4) more days AZITHROMYCIN 03820857190 No Longer Active Piotr Daley DO Active PROAIR HFA 108 (90 BASE) MCG/ACT INHALATION AEROSOL SOLUTION 1-2 puffs four times a day as needed ALBUTEROL SULFATE 28558946258 No Longer Active Emelyn Norris Active DOXYCYCLINE HYCLATE 100 MG ORAL CAPSULE 1 cap by mouth BID x10 days DOXYCYCLINE HYCLATE 00965165089 No Longer Active Nella Harris APRN Active PREDNISONE 20 MG ORAL TABLET 2 tabs daily for 3 days, 1 tab daily for 3 days, 1/2 tab daily for 2 days PREDNISONE 21126603700 No Longer Active Matthew Rangel MD Active TRAMADOL HCL 50 MG ORAL TABLET 1 po tid with ES Tylenol TRAMADOL HCL 93659563328 No Longer Active Matthew Rangel MD Active GABAPENTIN 300 MG ORAL CAPSULE 1 po q hs for nerve pain GABAPENTIN 35732119311 No Longer Active Matthew Rangel MD Active PREDNISONE 20 MG ORAL TABLET 2 tablets today, then 1 tablet days 2 through 4 PREDNISONE 49602899248 No Longer Active Piotr Daley DO Active AZITHROMYCIN 250 MG ORAL TABLET 2 po qd x 1 day, then 1 po qd x 4 days 07/12 AZITHROMYCIN 33032057322 No Longer Active Piotr Daley DO Active IBUPROFEN 800 MG ORAL TABLET 1 tab every 8 hours as needed 07/12 IBUPROFEN 80835011206 No Longer Active Piotr Daley DO Active LOMOTIL 2.5-0.025 MG ORAL TABLET 1 to 2 four times a day as needed for diarrhea DIPHENOXYLATE-ATROPINE 54613548704 No Longer Active Piotr Daley DO Active WARFARIN SODIUM 4 MG ORAL TABLET 1 tab every evening WARFARIN SODIUM 01917776361 No Longer Active Piotr Daley DO Active PREDNISONE 20 MG ORAL TABLET 1 tablet twice daily for 2 days, then 1 tablet once daily for 2 days PREDNISONE 06640466371 No Longer Active Piotr Daley DO Active PROMETHAZINE HCL 25 MG ORAL TABLET 1 four times a day as needed for nausea/ vomiting PROMETHAZINE HCL 44950580846 No Longer Active Piotr Daley DO Active TUSSIONEX PENNKINETIC ER 10-8 MG/5ML ORAL SUSPENSION EXTENDED RELEASE 5ml po q12hr PRN Cough HYDROCOD POLST-CHLORPHEN POLST 98011064474 No Longer Active Piotr Daley DO Active AZITHROMYCIN 250 MG ORAL TABLET 2 po qd x 1 day, then 1 po qd x 4 days 10/13 AZITHROMYCIN 53183863274 No Longer Active Piotr Daley DO Active AZITHROMYCIN 250 MG ORAL TABLET 2 po qd x 1 day, then 1 po qd x 4 days 05/07 AZITHROMYCIN 53101965708 No Longer Active Piotr Daley DO Active LISINOPRIL-HYDROCHLOROTHIAZIDE 10-12.5 MG ORAL TABLET 1 tab by mouth daily LISINOPRIL-HYDROCHLOROTHIAZIDE 09064157007 Active Piotr Daley DO Active LISINOPRIL 10 MG ORAL TABLET 1/2-1 tab po every other day LISINOPRIL 90118350914 No Longer Active Piotr Daley DO Active VENTOLIN HFA 108 (90 Base) MCG/ACT INHALATION AEROSOL SOLUTION 2 puffs four times a day PRN cough ALBUTEROL SULFATE 08057778802 No Longer Active Piotr Daley DO Active NYSTATIN-TRIAMCINOLONE 410593-0.1 UNIT/GM-% EXTERNAL CREAM Apply to area BID NYSTATIN-TRIAMCINOLONE 37133243933 No Longer Active Alena Chavira SUPERVISOR HEAVY EQUIPMENT Active PHISOHEX 3 % LIQD Use Directed HEXACHLOROPHENE 94970428352 No Longer Active Sandra Salinas Active AZITHROMYCIN 250 MG ORAL TABLET 2 po qd x 1 day, then 1 po qd x 4 days 10/21 AZITHROMYCIN 33089438126 No Longer Active Katrina Rinaldi MD PhD Active AZITHROMYCIN 250 MG ORAL TABLET 2 po qd x 1 day, then 1 po qd x 4 days 10/16 AZITHROMYCIN 77885425350 No Longer Active Piotr Daley DO Active AZITHROMYCIN 500 MG INTRAVENOUS SOLUTION RECONSTITUTED 1 po q day AZITHROMYCIN 44708780042 No Longer Active Piotr Daley DO Active NYSTATIN-TRIAMCINOLONE 883392-9.1 UNIT/GM-% EXTERNAL CREAM apply bid NYSTATIN-TRIAMCINOLONE 93015792981 No Longer Active Piotr Daley DO Active IBUPROFEN 800 MG ORAL TABLET 1 po q 8 hours prn pain sparinly IBUPROFEN 00930086129 No Longer Active Piotr Daley DO Active VITAMIN D3 5000 UNIT ORAL CAPSULE 1 po daily CHOLECALCIFEROL 45024990767 Active Piotr Daley DO Active IBUPROFEN 800 MG ORAL TABLET 1 po q 8 hours prn pain sparinly IBUPROFEN 800 MG ORAL TABLET 960802 IBUPROFEN Inactive NYSTATIN-TRIAMCINOLONE 313428-5.1 UNIT/GM-% EXTERNAL CREAM apply bid NYSTATIN-TRIAMCINOLONE 703119-3.1 UNIT/GM-% EXTERNAL CREAM 1520976 NYSTATIN-TRIAMCINOLONE Inactive AZITHROMYCIN 500 MG INTRAVENOUS SOLUTION RECONSTITUTED 1 po q day AZITHROMYCIN 500 MG INTRAVENOUS SOLUTION RECONSTITUTED 98892866793 AZITHROMYCIN Inactive VENTOLIN HFA 108 (90 Base) MCG/ACT INHALATION AEROSOL SOLUTION 2 puffs four times a day PRN cough VENTOLIN HFA 108 (90 Base) MCG/ ACT INHALATION AEROSOL SOLUTION ALBUTEROL SULFATE Inactive LISINOPRIL 10 MG ORAL TABLET 1/2-1 tab po every other day LISINOPRIL 10 MG ORAL TABLET 113899 LISINOPRIL Inactive TUSSIONEX PENNKINETIC ER 10-8 MG/5ML ORAL SUSPENSION EXTENDED RELEASE 5ml po q12hr PRN Cough TUSSIONEX PENNKINETIC ER 10-8 MG/5ML ORAL SUSPENSION EXTENDED RELEASE HYDROCOD POLST-CHLORPHEN POLST Inactive PROMETHAZINE HCL 25 MG ORAL TABLET 1 four times a day as needed for nausea/ vomiting PROMETHAZINE HCL 25 MG ORAL TABLET 681271 PROMETHAZINE HCL Inactive PREDNISONE 20 MG ORAL TABLET 1 tablet twice daily for 2 days, then 1 tablet once daily for 2 days PREDNISONE 20 MG ORAL TABLET 440229 PREDNISONE Inactive WARFARIN SODIUM 4 MG ORAL TABLET 1 tab every evening WARFARIN SODIUM 4 MG ORAL TABLET 691640 WARFARIN SODIUM Inactive LOMOTIL 2.5-0.025 MG ORAL TABLET 1 to 2 four times a day as needed for diarrhea LOMOTIL 2.5-0.025 MG ORAL TABLET 5676650 DIPHENOXYLATE-ATROPINE Inactive IBUPROFEN 800 MG ORAL TABLET 1 tab every 8 hours as needed 07/12 IBUPROFEN 800 MG ORAL TABLET 623193 IBUPROFEN Inactive PREDNISONE 20 MG ORAL TABLET 2 tablets today, then 1 tablet days 2 through 4 PREDNISONE 20 MG ORAL TABLET 477537 PREDNISONE Inactive GABAPENTIN 300 MG ORAL CAPSULE 1 po q hs for nerve pain GABAPENTIN 300 MG ORAL CAPSULE 603057 GABAPENTIN Inactive TRAMADOL HCL 50 MG ORAL TABLET 1 po tid with ES Tylenol TRAMADOL HCL 50 MG ORAL TABLET 353169 TRAMADOL HCL Inactive PROAIR HFA 108 (90 BASE) MCG/ACT INHALATION AEROSOL SOLUTION 1-2 puffs four times a day as needed PROAIR HFA 108 (90 BASE) MCG/ACT INHALATION AEROSOL SOLUTION ALBUTEROL SULFATE Inactive PREDNISONE 20 MG ORAL TABLET two tabs by mouth today, then one tab by mouth days two and three PREDNISONE 20 MG ORAL TABLET 554456 PREDNISONE Inactive AZITHROMYCIN 250 MG ORAL TABLET 2 po qd x 1 day, then 1 po qd x 4 days 10/16 AZITHROMYCIN 250 MG ORAL TABLET 603976 AZITHROMYCIN Inactive AZITHROMYCIN 250 MG ORAL TABLET 2 po qd x 1 day, then 1 po qd x 4 days 10/21 AZITHROMYCIN 250 MG ORAL TABLET 753126 AZITHROMYCIN Inactive NYSTATIN-TRIAMCINOLONE 556455-6.1 UNIT/GM-% EXTERNAL CREAM Apply to area BID NYSTATIN-TRIAMCINOLONE 291608-4.1 UNIT/GM-% EXTERNAL CREAM 9928097 NYSTATIN-TRIAMCINOLONE Inactive AZITHROMYCIN 250 MG ORAL TABLET 2 po qd x 1 day, then 1 po qd x 4 days 05/07 AZITHROMYCIN 250 MG ORAL TABLET 607803 AZITHROMYCIN Inactive AZITHROMYCIN 250 MG ORAL TABLET 2 po qd x 1 day, then 1 po qd x 4 days 10/13 AZITHROMYCIN 250 MG ORAL TABLET 025164 AZITHROMYCIN Inactive AZITHROMYCIN 250 MG ORAL TABLET 2 po qd x 1 day, then 1 po qd x 4 days 07/12 AZITHROMYCIN 250 MG ORAL TABLET 875600 AZITHROMYCIN Inactive PREDNISONE 20 MG ORAL TABLET 2 tabs daily for 3 days, 1 tab daily for 3 days, 1/2 tab daily for 2 days PREDNISONE 20 MG ORAL TABLET 012065 PREDNISONE Inactive DOXYCYCLINE HYCLATE 100 MG ORAL CAPSULE 1 cap by mouth BID x10 days DOXYCYCLINE HYCLATE 100 MG ORAL CAPSULE 7936973 DOXYCYCLINE HYCLATE Inactive ZITHROMAX 250 MG ORAL TABLET Take two (2 ) tablets day one, then one (1) tablet a day for four (4) more days ZITHROMAX 250 MG ORAL TABLET 321964 AZITHROMYCIN Inactive Advance Directives Directive Description Start [...] Panel - Chemistry sodium, serum 141 mmol/L 529-591 0440/01/24 potassium, serum 4.3 mmol/L 3.5-5.2 chloride, serum [...] % 11.0-15.0 platelet count 172 THOUSAND/UL 10*3/mm3 125-951 1687/04/12 mean platelet volume 8.6 fL 7.5-12.5 Lab Report: Prothrombin Time - Coagulation prothrombin time (patient) 27.8 SECS s 11.1-13.4 international normalized ratio (INR) 4.2 1.0-3.5 Lab Report: Prothrombin Time Hemochron - Coagulation prothrombin time (patient) 33.0 SECS s 18.9-24.9 Encounters Code Encounter Date Provider Facility CPT-76823 Level 3 Est. Patient 12:33:59 POULTRY FARMER Piotr Daley [facility] CPT-43717 Level 3 Est. Patient 15:56:17 POULTRY FARMER Piotr Daley [facility] CPT-81966 Level 3 Est. Patient 10:34:54 POULTRY FARMER Piotr Daley [facility] CPT-71198 Level 3 Est. Patient 17:10:19 CDT Nella Harris APRN [facility] CPT-45779 Level 3 Est. Patient 10:48:17 POULTRY FARMER Matthew Rangel MD [facility] CPT-72648 Level 4 Est. Patient 17:15:07 POULTRY FARMER Piotr Daley [facility] CPT-85847 Level 3 Est. Patient 12:46:13 POULTRY FARMER Piotr Daley [facility] CPT-12796 Level 3 Est. Patient 15:14:31 POULTRY FARMER Piotr Daley [facility] CPT-37659 Level 3 Est. Patient 09:20:13 POULTRY FARMER Piotr Daley [facility] CPT-07008 Level 3 Est. Patient 09:49:40 CDT Piotr Daley [facility] CPT-78329 Level 3 Est. Patient 16:28:11 CDT Piotr Daley [facility] CPT-67529 Level 3 Est. Patient 12:41:58 POULTRY FARMER Piotr Daley [facility] CPT-57404 Level 3 Est. Patient 09:21:24 CDT Piotr Daley [facility] CPT-34074 Level 3 Est. Patient 09:21:11 CDT Piotr Daley [facility] CPT-25905 Level 3 Est. Patient 11:16:29 POULTRY FARMER Piotr Daley [facility] CPT-33133 Level 3 Est. Patient 18:40:19 POULTRY FARMER Piotr Daley [facility] CPT-69950 Level 3 Est. Patient 19:30:50 CDT Piotr Daley [facility] CPT-69525 Level 3 Est. Patient 22:06:44 CDT Katrina Rinaldi MD [facility] CPT-62162 Level 3 Est. Patient 14:20:00 CDT Piotr Daley [facility] CPT-58557 Level 3 Est. Patient 14:15:22 POULTRY FARMER Piotr Daley [facility] CPT-65639 Level 3 Est. Patient 20:19:57 POULTRY FARMER Piotr Daley [facility] CPT-22947 Level 3 Est. Patient 16:44:32 CDT Piotr Katie Edi [facility] CPT-62073 Level 3 Est. Patient 08:48:46 POULTRY FARMER Piotr Katie Edi [facility] CPT-36067 Level 3 Est. Patient 21:01:21 CDT Piotr Katie Edi [facility] Procedures Code Procedure Name Date Entry Date Standard Description CPT-26765 Chest, 2 views 12:55:58 POULTRY FARMER CPT-G0439 Subsequent Annual Wellness Exam 10:34:52 POULTRY FARMER CPT-69167 BMP - LAB USE ONLY 17:19:11 POULTRY FARMER CPT-92504 PT/INR - LAB USE ONLY 17:19:10 POULTRY FARMER CPT-24006 Venipuncture Draw Fee 17:19:10 POULTRY FARMER CPT-06967 PT/INR - LAB USE ONLY 08:12:25 POULTRY FARMER CPT-71088 Venipuncture Draw Fee 08:12:24 POULTRY FARMER CPT-47990 Venipuncture Draw Fee 11:31:07 POULTRY FARMER CPT-41289 TPSA - LAB USE ONLY 11:31:07 POULTRY FARMER CPT-47942 PT/INR - LAB USE ONLY 11:31:07 [facility] CPT-G0439 Subsequent Annual Wellness Exam 09:59:29 POULTRY FARMER CPT-20640 Creatinine - LAB USE ONLY 14:37:55 POULTRY FARMER CPT-26568 PT/INR - LAB USE ONLY 14:37:55 POULTRY FARMER CPT-80370 Venipuncture Draw Fee 14:37:55 POULTRY FARMER CPT-32686 LS spine comp w obliques - XRAY USE ONLY 12:59:25 POULTRY FARMER CPT-23771 PT/INR - LAB USE ONLY 13:49:20 CDT CPT-45455 Venipuncture Draw Fee 13:49:19 CDT CPT-60095 PT/INR - LAB USE ONLY 15:48:49 CDT CPT-42318 Venipuncture Draw Fee 15:48:49 CDT CPT-98775 Venipuncture Draw Fee 11:31:59 CDT CPT-22923 PT/INR - LAB USE ONLY 11:31:59 CDT CPT-80382 Venipuncture Draw Fee 13:29:15 CDT CPT-73970 Thoracolumbar AP/Lat 15:19:19 POULTRY FARMER CPT-G0438 Initial Annual Wellness Exam 12:18:54 POULTRY FARMER CPT-22718 Knee 3V 09:57:38 CDT CPT-OV Office Visit 15:45:01 POULTRY FARMER CPT-60785 Abd compl w upright 17:10:25 CDT
--- OUTSIDE RECORDS SUMMARY | 2018-07-18 10:19 | XMS REPORT | Clinical Summary ---
Author Author Admin, YONG Organization [facility] Address Unknown Phone Unavailable Allergies, [...] 1 tablet days 2 through 4 PREDNISONE 42871469137 Active Piotr Daley DO Active AZITHROMYCIN 250 MG TABS 2 po qd x 1 day, then 1 po qd x 4 days AZITHROMYCIN 92130267480 No Longer Active Piotr Daley DO Active IBUPROFEN 800 MG TABS 1 tab every 8 hours as needed IBUPROFEN 14911245520 No Longer Active Piotr Daley DO Active LOMOTIL 2.5-0.025 MG TAB 1 to 2 four times a day as needed for diarrhea 10/13 DIPHENOXYLATE-ATROPINE 09123095551 No Longer Active Piotr Daley DO Active WARFARIN SODIUM 5 MG TABS 1 tablet daily except for Saturday and 04/09 tablet. WARFARIN SODIUM 27190268971 Active Piotr Daley DO Active WARFARIN SODIUM 4 MG TABS 1 tab every evening WARFARIN SODIUM 65975810309 No Longer Active Piotr Daley DO Active PREDNISONE 20 MG TAB 1 tablet twice daily for 2 days, then 1 tablet once daily for 2 days PREDNISONE 25657619644 No Longer Active Piotr Daley DO Active PROMETHAZINE HCL 25 MG TABS 1 four times a day as needed for nausea/vomiting PROMETHAZINE HCL 81260626650 No Longer Active Piotr Daley DO Active TUSSIONEX PENNKINETIC ER 10-8 MG/5ML LQCR 5ml po q12hr PRN Cough HYDROCOD POLST-CHLORPHEN POLST 01007287683 No Longer Active Piotr Daley DO Active AZITHROMYCIN 250 MG TABS 2 po qd x 1 day, then 1 po qd x 4 days AZITHROMYCIN 86046832196 No Longer Active Piotr Daley DO Active AZITHROMYCIN 250 MG TABS 2 po qd x 1 day, then 1 po qd x 4 days AZITHROMYCIN 35295157207 No Longer Active Piotr Daley DO Active LISINOPRIL-HYDROCHLOROTHIAZIDE 10-12.5 MG TABS 1 tab by mouth daily LISINOPRIL-HYDROCHLOROTHIAZIDE 82821452136 Active Piotr Daley DO Active LISINOPRIL 10 MG TABS 1/2-1 tab po every other day LISINOPRIL 05523609789 No Longer Active Piotr Daley DO Active VENTOLIN HFA 108 (90 BASE) MCG/ACT AERS 2 puffs four times a day PRN cough ALBUTEROL SULFATE 90280380396 No Longer Active Piotr Daley DO Active NYSTATIN-TRIAMCINOLONE 721134-1.1 UNIT/GM-% CREA Apply to area BID NYSTATIN-TRIAMCINOLONE 25876272651 No Longer Active Alena Chavira [employer]IVING [employer]CTOR Active PHISOHEX 3 % LIQD Use Directed HEXACHLOROPHENE 82327133390 No Longer Active Sandra [place] Active AZITHROMYCIN 250 MG TABS 2 po qd x 1 day, then 1 po qd x 4 days AZITHROMYCIN 98573528088 No Longer Active Katrina Rinaldi MD PhD Active AZITHROMYCIN 250 MG TABS 2 po qd x 1 day, then 1 po qd x 4 days AZITHROMYCIN 55459489271 No Longer Active Piotr Daley DO Active AZITHROMYCIN 500 MG SOLR 1 po q day AZITHROMYCIN 72773787469 No Longer Active Piotr Daley DO Active NYSTATIN-TRIAMCINOLONE 108882-3.1 UNIT/GM-% CREA apply bid 08/19 NYSTATIN-TRIAMCINOLONE 02074932351 No Longer Active Piotr Daley DO Active IBUPROFEN 800 MG TABS 1 po q 8 hours prn pain sparinly IBUPROFEN 17511713860 No Longer Active Piotr Daley DO Active VITAMIN D3 5000 UNIT CAPS 1 po daily CHOLECALCIFEROL 01022859567 Active Piotr Daley DO Active IBUPROFEN 800 MG TABS 1 po q 8 hours prn pain sparinly IBUPROFEN 800 MG TABS 672636 IBUPROFEN Inactive NYSTATIN-TRIAMCINOLONE 569207-2.1 UNIT/GM-% CREA apply bid 08/19 NYSTATIN-TRIAMCINOLONE 327199-9.1 UNIT/GM-% CREA 5281546 NYSTATIN- TRIAMCINOLONE Inactive AZITHROMYCIN 500 MG SOLR 1 po q day AZITHROMYCIN 500 MG SOLR 238783 AZITHROMYCIN Inactive VENTOLIN HFA 108 (90 BASE) MCG/ACT AERS 2 puffs four times a day PRN cough VENTOLIN HFA 108 (90 BASE) MCG/ACT AERS ALBUTEROL SULFATE Inactive LISINOPRIL 10 MG TABS 1/2-1 tab po every other day LISINOPRIL 10 MG TABS 393884 LISINOPRIL Inactive TUSSIONEX PENNKINETIC ER 10-8 MG/5ML LQCR 5ml po q12hr PRN Cough TUSSIONEX PENNKINETIC ER 10-8 MG/5ML LQCR HYDROCOD POLST- CHLORPHEN POLST Inactive PROMETHAZINE HCL 25 MG TABS 1 four times a day as needed for nausea/vomiting PROMETHAZINE HCL 25 MG TABS 355790 PROMETHAZINE HCL Inactive PREDNISONE 20 MG TAB 1 tablet twice daily for 2 days, then 1 tablet once daily for 2 days PREDNISONE 20 MG TAB 420496 PREDNISONE Inactive WARFARIN SODIUM 4 MG TABS 1 tab every evening WARFARIN SODIUM 4 MG TABS 824985 WARFARIN SODIUM Inactive LOMOTIL 2.5-0.025 MG TAB 1 to 2 four times a day as needed for diarrhea 10/13 LOMOTIL 2.5-0.025 MG TAB 3078009 DIPHENOXYLATE-ATROPINE Inactive IBUPROFEN 800 MG TABS 1 tab every 8 hours as needed IBUPROFEN 800 MG TABS 762943 IBUPROFEN Inactive AZITHROMYCIN 250 MG TABS 2 po qd x 1 day, then 1 po qd x 4 days AZITHROMYCIN 250 MG TABS 8801131 AZITHROMYCIN Inactive AZITHROMYCIN 250 MG TABS 2 po qd x 1 day, then 1 po qd x 4 days AZITHROMYCIN 250 MG TABS 8722241 AZITHROMYCIN Inactive NYSTATIN-TRIAMCINOLONE 875152-8.1 UNIT/GM-% CREA Apply to area BID NYSTATIN-TRIAMCINOLONE 814141-6.1 UNIT/GM-% CREA 3580926 NYSTATIN-TRIAMCINOLONE Inactive AZITHROMYCIN 250 MG TABS 2 po qd x 1 day, then 1 po qd x 4 days AZITHROMYCIN 250 MG TABS 9695110 AZITHROMYCIN Inactive AZITHROMYCIN 250 MG TABS 2 po qd x 1 day, then 1 po qd x 4 days AZITHROMYCIN 250 MG TABS 4645816 AZITHROMYCIN Inactive AZITHROMYCIN 250 MG TABS 2 po qd x 1 day, then 1 po qd x 4 days AZITHROMYCIN 250 MG TABS 7504705 AZITHROMYCIN Inactive Vital Signs Date Name Value [...] ratio (INR) 2.3 1.0-3.5 prothrombin time (patient) 23.4 SECS s 11.1-13.4 international normalized ratio (INR) 3.5 1.0-3.5 prothrombin time (patient) 17.7 SECS s 11.1-13.4 international normalized ratio (INR) 2.0 1.0-3.5 prothrombin time (patient) 21.0 SECS s 11.1-13.4 international normalized ratio (INR) 2.8 1.0-3.5 prothrombin time (patient) 19.5 SECS s 11.1-13.4 international normalized ratio (INR) 2.5 1.0-3.5 prothrombin time (patient) 14.5 SECS s 11.1-13.4 international normalized ratio (INR) 1.4 1.0-3.5 international normalized ratio (INR) 2.4 1.0-3.5 prothrombin time (patient) 19.3 SECS s 11.1-13.4 international normalized ratio (INR) 1.6 1.0-3.5 prothrombin time (patient) 15.4 SECS s 11.1-13.4 international normalized ratio (INR) 1.7 1.0-3.5 prothrombin time (patient) 16.0 SECS s 11.1-13.4 Lab Report: Prothrombin Time, Basic Metabolic Panel, CBC, Prostatic Spec ... - Chemistry blood glucose 101 mg/dL 65-110 calcium, serum 9.7 mg/dL 8.5-10.1 urea nitrogen, blood 14 mg/dL 7-18 creatinine, serum 1.10 mg/dL 0.60-1.30 prostate specific antigen 0.08 ng/mL 0.00-4.00 potassium, serum 4.7 mmol/L 3.5-5.2 chloride, serum 102 mmol/L 98-107 carbon dioxide, venous blood 31.8 mmol/L 21.0-32.0 sodium, serum 142 mmol/L 136-145 Lab Report: Prothrombin Time, Basic Metabolic Panel, CBC, Prostatic Spec ... - Coagulation international normalized ratio (INR) 3.1 1.0-3.5 prothrombin time (patient) 22.0 SECS s 11.1-13.4 Lab Report: Prothrombin Time, [...] 142-424 Encounters Code Encounter Date Provider Facility CPT-54622 Level 3 Est. Patient 16:28:11 CDT Piotr Daley [facility] CPT-83842 Level 3 Est. Patient 12:41:58 [employer] Piotr Daley [facility] CPT-54542 Level 3 Est. Patient 09:21:24 CDT Piotr Daley [facility] CPT-74148 Level 3 Est. Patient 09:21:11 CDT Piotr Wilson [facility] CPT-85759 Level 3 Est. Patient 11:16:29 [employer] Piotr Daley [facility] CPT-82298 Level 3 Est. Patient 18:40:19 [employer] Piotr Daley [facility] CPT-91259 Level 3 Est. Patient 19:30:50 CDT Piotr Daley [facility] CPT-18105 Level 3 Est. Patient 22:06:44 CDT Katrina Rinaldi MD PhD [facility] CPT-02206 Level 3 Est. Patient 14:20:00 CDT Piotr Daley [facility] CPT-65524 Level 3 Est. Patient 14:15:22 [employer] Piotr Daley [facility] CPT-87045 Level 3 Est. Patient 20:19:57 [employer] Piotr Daley [facility] CPT-25328 Level 3 Est. Patient 16:44:32 CDT Piotr Daley [facility] CPT-69652 Level 3 Est. Patient 08:48:46 [employer] Piotr Wilson [facility] CPT-69469 Level 3 Est. Patient 21:01:21 CDT Piotr Wilson [facility] Procedures Code Procedure Name Date Entry Date Standard Description CPT-OV Office Visit 15:45:01 [employer] CPT-53539 Abd compl w upright 17:10:25 CDT
--- OUTSIDE RECORDS SUMMARY | 2018-07-18 10:20 | XMS REPORT | Clinical Summary ---
Author Author Admin, Isidra Organization [facility] Address Unknown Phone Unavailable Allergies, Adverse Reactions, [...] of anticoagulants Seborrheic keratosis 702.19 Resolved Piotr Ktaie Daley DO Other seborrheic keratosis Bronchitis-Acute 466.0 [...] THROMBOPHLEBITIS, LEG, 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 Inactive Sirisha Chen [employer] RE[employer] Seborrheic keratosis ICD-702.19 Inactive Sirisha Chen [employer] REPAIRER Bronchitis-Acute ICD-466.0 Inactive Piotr Daley DO Leg pain, right ICD-729.5 Inactive Sirisha Chen EZE Right leg pain ICD-729.5 Inactive Sirisha Chen [employer] REPA[employer]ER Bronchitis-Acute ICD-466.0 Inactive Sirisha Chen [employer]ERA REPAIRER Knee pain, left ICD-719.46 Inactive Sirisha Chen [employer]ERA REPAIRER Actinic keratoses ICD-702.0 Inactive Sirisha Chen [employer]ERA REPAIRER Back pain, thoracic region, left ICD-724.1 Inactive Piotr Daley DO Thoracic back pain ICD-724.5 Inactive Sirisha Gustavo LOO Back pain lumbar ICD-724.2 Inactive Sirisha Gustavo AGEEN Insect bite ICD-919.4 Inactive Sirisha Gustavo LOO Pruritus ICD-698.9 Inactive Sirisha Gustavo AGEEN 04/09 DEEP VENOUS THROMBOPHLEBITIS, LEG, 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 Inactive Sirisha Gustavo LOO Medication List Medication Instructions Start Date Stop Date Generic Name NDC Status Provider Patient Instruction TESSALON PERLES 100 MG ORAL CAPSULE 1-2 tablet by mouth 3 times daily 04/16 BENZONATATE 66222105042 Active Piotr Daley DO Active PREDNISONE 10 MG ORAL TABLET 1 tablet by mouth daily PREDNISONE 71302779304 Active Piotr Daley DO Active PREDNISONE 20 MG ORAL TABLET two tabs by mouth today, then one tab by mouth days two and three PREDNISONE 35964986827 No Longer Active Piotr Daley DO Active CYCLOBENZAPRINE HCL 10 MG ORAL TABLET 1 tablet by mouth three times daily as needed for muscle spasm/pain CYCLOBENZAPRINE HCL 57406168436 Active Piotr Daley DO Active ZITHROMAX 250 MG ORAL TABLET Take two (2 ) tablets day one, then one (1) tablet a day for four (4) more days AZITHROMYCIN 28239384083 No Longer Active Piotr Daley DO Active PROAIR HFA 108 (90 BASE) MCG/ACT INHALATION AEROSOL SOLUTION 1-2 puffs four times a day as needed ALBUTEROL SULFATE 48862761795 No Longer Active Emelyn Norris Active DOXYCYCLINE HYCLATE 100 MG ORAL CAPSULE 1 cap by mouth BID x10 days DOXYCYCLINE HYCLATE 77433730218 No Longer Active Nella Harris APRN Active WARFARIN SODIUM 5 MG ORAL TABLET 1 tablet daily M-S, 1/2 tab on Heart WARFARIN SODIUM 22797739405 Active Piotr Daley DO Active PREDNISONE 20 MG ORAL TABLET 2 tabs daily for 3 days, 1 tab daily for 3 days, 1/2 tab daily for 2 days PREDNISONE 41053094950 No Longer Active Matthew Rangel MD Active TRAMADOL HCL 50 MG ORAL TABLET 1 po tid with ES Tylenol TRAMADOL HCL 41886983655 No Longer Active Matthew Rangel MD Active GABAPENTIN 300 MG ORAL CAPSULE 1 po q hs for nerve pain GABAPENTIN 54190869165 No Longer Active Matthew Rangel MD Active PREDNISONE 20 MG ORAL TABLET 2 tablets today, then 1 tablet days 2 through 4 PREDNISONE 71152165242 No Longer Active Piotr Daley DO Active AZITHROMYCIN 250 MG ORAL TABLET 2 po qd x 1 day, then 1 po qd x 4 days 07/12 AZITHROMYCIN 63975241363 No Longer Active Piotr Daley DO Active IBUPROFEN 800 MG ORAL TABLET 1 tab every 8 hours as needed 07/12 IBUPROFEN 77818390809 No Longer Active Piotr Daley DO Active LOMOTIL 2.5-0.025 MG ORAL TABLET 1 to 2 four times a day as needed for diarrhea DIPHENOXYLATE-ATROPINE 20809619905 No Longer Active Piotr Daley DO Active WARFARIN SODIUM 4 MG ORAL TABLET 1 tab every evening WARFARIN SODIUM 48436296213 No Longer Active Piotr Daley DO Active PREDNISONE 20 MG ORAL TABLET 1 tablet twice daily for 2 days, then 1 tablet once daily for 2 days PREDNISONE 92842566250 No Longer Active Piotr Daley DO Active PROMETHAZINE HCL 25 MG ORAL TABLET 1 four times a day as needed for nausea/ vomiting PROMETHAZINE HCL 52775539118 No Longer Active Piotr Daley DO Active TUSSIONEX PENNKINETIC ER 10-8 MG/5ML ORAL SUSPENSION EXTENDED RELEASE 5ml po q12hr PRN Cough HYDROCOD POLST-CHLORPHEN POLST 31337394929 No Longer Active Piotr Daley DO Active AZITHROMYCIN 250 MG ORAL TABLET 2 po qd x 1 day, then 1 po qd x 4 days 10/13 AZITHROMYCIN 30922389524 No Longer Active Piotr Daley DO Active AZITHROMYCIN 250 MG ORAL TABLET 2 po qd x 1 day, then 1 po qd x 4 days 05/07 AZITHROMYCIN 78973205826 No Longer Active Piotr Daley DO Active LISINOPRIL-HYDROCHLOROTHIAZIDE 10-12.5 MG ORAL TABLET 1 tab by mouth daily LISINOPRIL-HYDROCHLOROTHIAZIDE 13286474141 Active Piotr Daley DO Active LISINOPRIL 10 MG ORAL TABLET 1/2-1 tab po every other day LISINOPRIL 29868533251 No Longer Active Piotr Daley DO Active VENTOLIN HFA 108 (90 Base) MCG/ACT INHALATION AEROSOL SOLUTION 2 puffs four times a day PRN cough ALBUTEROL SULFATE 17562885615 No Longer Active Piotr Daley DO Active NYSTATIN-TRIAMCINOLONE 218278-1.1 UNIT/GM-% EXTERNAL CREAM Apply to area BID NYSTATIN-TRIAMCINOLONE 84754354640 No Longer Active Alena Chavira CAMERA REPAIRER Active PHISOHEX 3 % LIQD Use Directed HEXACHLOROPHENE 27136983925 No Longer Active Sandra [place] Active AZITHROMYCIN 250 MG ORAL TABLET 2 po qd x 1 day, then 1 po qd x 4 days 10/21 AZITHROMYCIN 27004159367 No Longer Active Katrina Rinaldi MD PhD Active AZITHROMYCIN 250 MG ORAL TABLET 2 po qd x 1 day, then 1 po qd x 4 days 10/16 AZITHROMYCIN 50249246351 No Longer Active Piotr Daley DO Active AZITHROMYCIN 500 MG INTRAVENOUS SOLUTION RECONSTITUTED 1 po q day AZITHROMYCIN 99653317228 No Longer Active Piotr Daley DO Active NYSTATIN-TRIAMCINOLONE 066158-8.1 UNIT/GM-% EXTERNAL CREAM apply bid NYSTATIN-TRIAMCINOLONE 22881279930 No Longer Active Piotr Daley DO Active IBUPROFEN 800 MG ORAL TABLET 1 po q 8 hours prn pain sparinly IBUPROFEN 67876098716 No Longer Active Piotr Daley DO Active VITAMIN D3 5000 UNIT ORAL CAPSULE 1 po daily CHOLECALCIFEROL 27838473270 Active Piotr Daley DO Active IBUPROFEN 800 MG ORAL TABLET 1 po q 8 hours prn pain sparinly IBUPROFEN 800 MG ORAL TABLET 498764 IBUPROFEN Inactive NYSTATIN-TRIAMCINOLONE 036391-1.1 UNIT/GM-% EXTERNAL CREAM apply bid NYSTATIN-TRIAMCINOLONE 808281-6.1 UNIT/GM-% EXTERNAL CREAM 8051005 NYSTATIN-TRIAMCINOLONE Inactive AZITHROMYCIN 500 MG INTRAVENOUS SOLUTION RECONSTITUTED 1 po q day AZITHROMYCIN 500 MG INTRAVENOUS SOLUTION RECONSTITUTED 44282774787 AZITHROMYCIN Inactive VENTOLIN HFA 108 (90 Base) MCG/ACT INHALATION AEROSOL SOLUTION 2 puffs four times a day PRN cough VENTOLIN HFA 108 (90 Base) MCG/ ACT INHALATION AEROSOL SOLUTION ALBUTEROL SULFATE Inactive LISINOPRIL 10 MG ORAL TABLET 1/2-1 tab po every other day LISINOPRIL 10 MG ORAL TABLET 532393 LISINOPRIL Inactive TUSSIONEX PENNKINETIC ER 10-8 MG/5ML ORAL SUSPENSION EXTENDED RELEASE 5ml po q12hr PRN Cough TUSSIONEX PENNKINETIC ER 10-8 MG/5ML ORAL SUSPENSION EXTENDED RELEASE HYDROCOD POLST-CHLORPHEN POLST Inactive PROMETHAZINE HCL 25 MG ORAL TABLET 1 four times a day as needed for nausea/ vomiting PROMETHAZINE HCL 25 MG ORAL TABLET 521247 PROMETHAZINE HCL Inactive PREDNISONE 20 MG ORAL TABLET 1 tablet twice daily for 2 days, then 1 tablet once daily for 2 days PREDNISONE 20 MG ORAL TABLET 771782 PREDNISONE Inactive WARFARIN SODIUM 4 MG ORAL TABLET 1 tab every evening WARFARIN SODIUM 4 MG ORAL TABLET 985544 WARFARIN SODIUM Inactive LOMOTIL 2.5-0.025 MG ORAL TABLET 1 to 2 four times a day as needed for diarrhea LOMOTIL 2.5-0.025 MG ORAL TABLET 9552020 DIPHENOXYLATE-ATROPINE Inactive IBUPROFEN 800 MG ORAL TABLET 1 tab every 8 hours as needed 07/12 IBUPROFEN 800 MG ORAL TABLET 027360 IBUPROFEN Inactive PREDNISONE 20 MG ORAL TABLET 2 tablets today, then 1 tablet days 2 through 4 PREDNISONE 20 MG ORAL TABLET 473778 PREDNISONE Inactive GABAPENTIN 300 MG ORAL CAPSULE 1 po q hs for nerve pain GABAPENTIN 300 MG ORAL CAPSULE 989095 GABAPENTIN Inactive TRAMADOL HCL 50 MG ORAL TABLET 1 po tid with ES Tylenol TRAMADOL HCL 50 MG ORAL TABLET 418013 TRAMADOL HCL Inactive PROAIR HFA 108 (90 BASE) MCG/ACT INHALATION AEROSOL SOLUTION 1-2 puffs four times a day as needed PROAIR HFA 108 (90 BASE) MCG/ACT INHALATION AEROSOL SOLUTION ALBUTEROL SULFATE Inactive PREDNISONE 20 MG ORAL TABLET two tabs by mouth today, then one tab by mouth days two and three PREDNISONE 20 MG ORAL TABLET 771854 PREDNISONE Inactive AZITHROMYCIN 250 MG ORAL TABLET 2 po qd x 1 day, then 1 po qd x 4 days 10/16 AZITHROMYCIN 250 MG ORAL TABLET 018850 AZITHROMYCIN Inactive AZITHROMYCIN 250 MG ORAL TABLET 2 po qd x 1 day, then 1 po qd x 4 days 10/21 AZITHROMYCIN 250 MG ORAL TABLET 170160 AZITHROMYCIN Inactive NYSTATIN-TRIAMCINOLONE 152586-4.1 UNIT/GM-% EXTERNAL CREAM Apply to area BID NYSTATIN-TRIAMCINOLONE 832331-4.1 UNIT/GM-% EXTERNAL CREAM 4645485 NYSTATIN-TRIAMCINOLONE Inactive AZITHROMYCIN 250 MG ORAL TABLET 2 po qd x 1 day, then 1 po qd x 4 days 05/07 AZITHROMYCIN 250 MG ORAL TABLET 618229 AZITHROMYCIN Inactive AZITHROMYCIN 250 MG ORAL TABLET 2 po qd x 1 day, then 1 po qd x 4 days 10/13 AZITHROMYCIN 250 MG ORAL TABLET 751053 AZITHROMYCIN Inactive AZITHROMYCIN 250 MG ORAL TABLET 2 po qd x 1 day, then 1 po qd x 4 days 07/12 AZITHROMYCIN 250 MG ORAL TABLET 159672 AZITHROMYCIN Inactive PREDNISONE 20 MG ORAL TABLET 2 tabs daily for 3 days, 1 tab daily for 3 days, 1/2 tab daily for 2 days PREDNISONE 20 MG ORAL TABLET 914155 PREDNISONE Inactive DOXYCYCLINE HYCLATE 100 MG ORAL CAPSULE 1 cap by mouth BID x10 days DOXYCYCLINE HYCLATE 100 MG ORAL CAPSULE 5289182 DOXYCYCLINE HYCLATE Inactive ZITHROMAX 250 MG ORAL TABLET Take two (2 ) tablets day one, then one (1) tablet a day for four (4) more days ZITHROMAX 250 MG ORAL TABLET 112699 AZITHROMYCIN Inactive Advance Directives Directive Description Start [...] Panel - Chemistry sodium, serum 141 mmol/L 030-800 9648/01/24 potassium, serum 4.3 mmol/L 3.5-5.2 chloride, serum [...] % 11.0-15.0 platelet count 172 THOUSAND/UL 10*3/mm3 572-345 0034/04/12 mean platelet volume 8.6 fL 7.5-12.5 Lab Report: Prothrombin Time - Coagulation international normalized ratio (INR) 4.2 1.0-3.5 prothrombin time (patient) 27.8 SECS s 11.1-13.4 Lab Report: Prothrombin Time Hemochron - Coagulation prothrombin time (patient) 33.0 SECS s 18.9-24.9 Encounters Code Encounter Date Provider Facility CPT-13606 Level 3 Est. Patient 12:33:59 [employer] Piotr Daley [facility] CPT-23182 Level 3 Est. Patient 15:56:17 [employer] Piotr Daley [facility] CPT-42922 Level 3 Est. Patient 10:34:54 [employer] Piotr Daley [facility] CPT-89071 Level 3 Est. Patient 17:10:19 [facility] Level 3 Est. Patient 10:48:17 [employer] Matthew Rangel MD [facility] CPT-19485 Level 4 Est. Patient 17:15:07 [employer] Piotr Daley [facility] CPT-89969 Level 3 Est. Patient 12:46:13 [employer] Piotr Daley [facility] CPT-98792 Level 3 Est. Patient 15:14:31 [employer] Piotr Daley [facility] CPT-21553 Level 3 Est. Patient 09:20:13 [employer] Piotr Wilson [facility] CPT-37324 Level 3 Est. Patient 09:49:40 CDT Piotr W Edi [facility] CPT-52039 Level 3 Est. Patient 16:28:11 CDT Piotr Daley [facility] CPT-03819 Level 3 Est. Patient 12:41:58 [employer] Piotr Daley [facility] CPT-81344 Level 3 Est. Patient 09:21:24 CDT Piotr Daley [facility] CPT-32542 Level 3 Est. Patient 09:21:11 CDT Piotr Daley [facility] CPT-35549 Level 3 Est. Patient 11:16:29 [employer] Piotr Daley [facility] CPT-48795 Level 3 Est. Patient 18:40:19 [employer] Piotr Daley [facility] CPT-86617 Level 3 Est. Patient 19:30:50 CDT Piotr Daley [facility] CPT-73488 Level 3 Est. Patient 22:06:44 CDT Katrina Rinaldi MD PhD [facility] CPT-04653 Level 3 Est. Patient 14:20:00 CDT Piotr Daley [facility] CPT-95804 Level 3 Est. Patient 14:15:22 [employer] Piotr Daley [facility] CPT-99914 Level 3 Est. Patient 20:19:57 [employer] Piotr Daley [facility] CPT-70569 Level 3 Est. Patient 16:44:32 CDT Piotr Katie Daley [facility] CPT-35338 Level 3 Est. Patient 08:48:46 [employer] Piotr Daley [facility] CPT-02931 Level 3 Est. Patient 21:01:21 CDT Piotr Katie Edi [facility] Procedures Code Procedure Name Date Entry Date Standard Description CPT-34815 Chest, 2 views 12:55:58 [employer] CPT-G0439 MC Subsequent Annual Wellness Exam 10:34:52 [employer] CPT-20388 BMP - LAB USE ONLY 17:19:11 [employer] CPT-10070 PT/INR - LAB USE ONLY 17:19:10 [employer] CPT-34323 Venipuncture Draw Fee 17:19:10 [employer] CPT-95706 PT/INR - LAB USE ONLY 08:12:25 [employer] CPT-89390 Venipuncture Draw Fee 08:12:24 [employer] CPT-52983 Venipuncture Draw Fee 11:31:07 [employer] CPT-02208 TPSA - LAB USE ONLY 11:31:07 [facility] CPT-74215 PT/INR - LAB USE ONLY 11:31:07 [facility] CPT-G0439 Subsequent Annual Wellness Exam 09:59:29 [facility] CPT-24839 Creatinine - LAB USE ONLY 14:37:55 [facility] CPT-35742 PT/INR - LAB USE ONLY 14:37:55 [facility] CPT-30982 Venipuncture Draw Fee 14:37:55 [facility] CPT-47154 LS spine comp w obliques - XRAY USE ONLY 12:59:25 [employer] CPT-79560 PT/INR - LAB USE ONLY 13:49:20 CDT CPT-47553 Venipuncture Draw Fee 13:49:19 CDT CPT-11581 PT/INR - LAB USE ONLY 15:48:49 CDT CPT-35980 Venipuncture Draw Fee 15:48:49 CDT CPT-24872 Venipuncture Draw Fee 11:31:59 CDT CPT-80237 PT/INR - LAB USE ONLY 11:31:59 CDT CPT-15817 Venipuncture Draw Fee 13:29:15 CDT CPT-34816 Thoracolumbar AP/Lat 15:19:19 [employer] CPT-G0438 Initial Annual Wellness Exam 12:18:54 [employer] CPT-25914 Knee 3V 09:57:38 CDT CPT-OV Office Visit 15:45:01 [employer] CPT-63906 Abd compl w upright 17:10:25 CDT
--- OUTSIDE RECORDS SUMMARY | 2018-07-18 10:21 | XMS REPORT | Clinical Summary ---
Author Author Admin, YONG Organization [facility] Address Unknown Phone Unavailable Allergies, Adverse [...] lower extremity Coumadin therapy V58.61 Active Alena Raemy Long-term (current) use of anticoagulants Seborrheic keratosis [...] 1 tablet days 2 through 4 PREDNISONE 29463749771 Active Piotr Daley DO Active AZITHROMYCIN 250 MG TABS 2 po qd x 1 day, then 1 po qd x 4 days AZITHROMYCIN 78746585212 No Longer Active Piotr Daley DO Active IBUPROFEN 800 MG TABS 1 tab every 8 hours as needed IBUPROFEN 78968866895 No Longer Active Piotr Daley DO Active LOMOTIL 2.5-0.025 MG TAB 1 to 2 four times a day as needed for diarrhea 10/13 DIPHENOXYLATE-ATROPINE 44906911452 No Longer Active Piotr Daley DO Active WARFARIN SODIUM 5 MG TABS 1 tablet daily except for Saturday and 04/09 tablet. WARFARIN SODIUM 36334274342 Active Piotr Daley DO Active WARFARIN SODIUM 4 MG TABS 1 tab every evening WARFARIN SODIUM 29411653545 No Longer Active Piotr Daley DO Active PREDNISONE 20 MG TAB 1 tablet twice daily for 2 days, then 1 tablet once daily for 2 days PREDNISONE 54768131135 No Longer Active Piotr Daley DO Active PROMETHAZINE HCL 25 MG TABS 1 four times a day as needed for nausea/vomiting PROMETHAZINE HCL 14101425092 No Longer Active Piotr Daley DO Active TUSSIONEX PENNKINETIC ER 10-8 MG/5ML LQCR 5ml po q12hr PRN Cough HYDROCOD POLST-CHLORPHEN POLST 17254053033 No Longer Active Piotr Daley DO Active AZITHROMYCIN 250 MG TABS 2 po qd x 1 day, then 1 po qd x 4 days AZITHROMYCIN 13963419150 No Longer Active Piotr Daley DO Active AZITHROMYCIN 250 MG TABS 2 po qd x 1 day, then 1 po qd x 4 days AZITHROMYCIN 97266680967 No Longer Active Piotr Daley DO Active LISINOPRIL-HYDROCHLOROTHIAZIDE 10-12.5 MG TABS 1 tab by mouth daily LISINOPRIL-HYDROCHLOROTHIAZIDE 22847533851 Active Piotr Daley DO Active LISINOPRIL 10 MG TABS 1/2-1 tab po every other day LISINOPRIL 62894331101 No Longer Active Piotr Daley DO Active VENTOLIN HFA 108 (90 BASE) MCG/ACT AERS 2 puffs four times a day PRN cough ALBUTEROL SULFATE 97138060853 No Longer Active Piotr Daley DO Active NYSTATIN-TRIAMCINOLONE 101616-6.1 UNIT/GM-% CREA Apply to area BID NYSTATIN-TRIAMCINOLONE 96657547900 No Longer Active Alena Chavira PUBLIC HEALTH EDUCATOR Active PHISOHEX 3 % LIQD Use Directed HEXACHLOROPHENE 71445949833 No Longer Active Sandra [place] Active AZITHROMYCIN 250 MG TABS 2 po qd x 1 day, then 1 po qd x 4 days AZITHROMYCIN 86078623782 No Longer Active Katrina Rinaldi MD PhD Active AZITHROMYCIN 250 MG TABS 2 po qd x 1 day, then 1 po qd x 4 days AZITHROMYCIN 22094054166 No Longer Active Piotr Daley DO Active AZITHROMYCIN 500 MG SOLR 1 po q day AZITHROMYCIN 07155379287 No Longer Active Piotr Daley DO Active NYSTATIN-TRIAMCINOLONE 429228-0.1 UNIT/GM-% CREA apply bid 08/19 NYSTATIN-TRIAMCINOLONE 25250002912 No Longer Active Piotr Daley DO Active IBUPROFEN 800 MG TABS 1 po q 8 hours prn pain sparinly IBUPROFEN 08037742957 No Longer Active Piotr Daley DO Active VITAMIN D3 5000 UNIT CAPS 1 po daily CHOLECALCIFEROL 61705462880 Active Piotr Daley DO Active IBUPROFEN 800 MG TABS 1 po q 8 hours prn pain sparinly IBUPROFEN 800 MG TABS 171563 IBUPROFEN Inactive NYSTATIN-TRIAMCINOLONE 549775-8.1 UNIT/GM-% CREA apply bid 08/19 NYSTATIN-TRIAMCINOLONE 720496-7.1 UNIT/GM-% CREA 6911136 NYSTATIN- TRIAMCINOLONE Inactive AZITHROMYCIN 500 MG SOLR 1 po q day AZITHROMYCIN 500 MG SOLR 065896 AZITHROMYCIN Inactive VENTOLIN HFA 108 (90 BASE) MCG/ACT AERS 2 puffs four times a day PRN cough VENTOLIN HFA 108 (90 BASE) MCG/ACT AERS ALBUTEROL SULFATE Inactive LISINOPRIL 10 MG TABS 1/2-1 tab po every other day LISINOPRIL 10 MG TABS 771547 LISINOPRIL Inactive TUSSIONEX PENNKINETIC ER 10-8 MG/5ML LQCR 5ml po q12hr PRN Cough TUSSIONEX PENNKINETIC ER 10-8 MG/5ML LQCR HYDROCOD POLST- CHLORPHEN POLST Inactive PROMETHAZINE HCL 25 MG TABS 1 four times a day as needed for nausea/vomiting PROMETHAZINE HCL 25 MG TABS 959890 PROMETHAZINE HCL Inactive PREDNISONE 20 MG TAB 1 tablet twice daily for 2 days, then 1 tablet once daily for 2 days PREDNISONE 20 MG TAB 303997 PREDNISONE Inactive WARFARIN SODIUM 4 MG TABS 1 tab every evening WARFARIN SODIUM 4 MG TABS 434787 WARFARIN SODIUM Inactive LOMOTIL 2.5-0.025 MG TAB 1 to 2 four times a day as needed for diarrhea 10/13 LOMOTIL 2.5-0.025 MG TAB 5473406 DIPHENOXYLATE-ATROPINE Inactive IBUPROFEN 800 MG TABS 1 tab every 8 hours as needed IBUPROFEN 800 MG TABS 223981 IBUPROFEN Inactive AZITHROMYCIN 250 MG TABS 2 po qd x 1 day, then 1 po qd x 4 days AZITHROMYCIN 250 MG TABS 9862304 AZITHROMYCIN Inactive AZITHROMYCIN 250 MG TABS 2 po qd x 1 day, then 1 po qd x 4 days AZITHROMYCIN 250 MG TABS 6318472 AZITHROMYCIN Inactive NYSTATIN-TRIAMCINOLONE 865140-2.1 UNIT/GM-% CREA Apply to area BID NYSTATIN-TRIAMCINOLONE 115535-9.1 UNIT/GM-% CREA 5806790 NYSTATIN-TRIAMCINOLONE Inactive AZITHROMYCIN 250 MG TABS 2 po qd x 1 day, then 1 po qd x 4 days AZITHROMYCIN 250 MG TABS 9055212 AZITHROMYCIN Inactive AZITHROMYCIN 250 MG TABS 2 po qd x 1 day, then 1 po qd x 4 days AZITHROMYCIN 250 MG TABS 2639171 AZITHROMYCIN Inactive AZITHROMYCIN 250 MG TABS 2 po qd x 1 day, then 1 po qd x 4 days AZITHROMYCIN 250 MG TABS 4324907 AZITHROMYCIN Inactive Vital Signs Date Name Value [...] Prothrombin Time - Coagulation prothrombin time (patient) 19.3 SECS s 11.1-13.4 prothrombin time (patient) 17.7 SECS s 11.1-13.4 international normalized ratio (INR) 2.0 1.0-3.5 prothrombin time (patient) 19.5 SECS s 11.1-13.4 international normalized ratio (INR) 2.5 1.0-3.5 prothrombin time (patient) 23.4 SECS s 11.1-13.4 international normalized ratio (INR) 3.5 1.0-3.5 international normalized ratio (INR) 2.4 1.0-3.5 prothrombin time (patient) 16.0 SECS s 11.1-13.4 international normalized ratio (INR) 1.7 1.0-3.5 prothrombin time (patient) 15.4 SECS s 11.1-13.4 international normalized ratio (INR) 1.6 1.0-3.5 international normalized ratio (INR) 1.4 1.0-3.5 prothrombin time (patient) 14.5 SECS s 11.1-13.4 prothrombin time (patient) 21.0 SECS s 11.1-13.4 international normalized ratio (INR) 2.8 1.0-3.5 Lab Report: Prothrombin Time, Basic Metabolic Panel, CBC, Prostatic Spec ... - Chemistry potassium, serum 4.7 mmol/L 3.5-5.2 prostate specific antigen 0.08 ng/mL 0.00-4.00 chloride, serum 102 mmol/L 98-107 carbon dioxide, venous blood 31.8 mmol/L 21.0-32.0 blood glucose 101 mg/dL 65-110 calcium, serum 9.7 mg/dL 8.5-10.1 urea nitrogen, blood 14 mg/dL 7-18 creatinine, serum 1.10 mg/dL 0.60-1.30 sodium, serum 142 mmol/L 136-145 Lab Report: [...] [id number] Encounters Code Encounter Date Provider Facility CPT-18041 Level 3 Est. Patient 16:28:11 CDT Piotr Daley [facility] CPT-95613 Level 3 Est. 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 Patient 09:21:24 CDT Piotr Daley [facility] CPT-94930 Level 3 Est. Patient 09:21:11 CDT Piotr Daley [facility] CPT-09999 Level 3 Est. Patient 11:16:29 MODERN G[employer] STUDIES PROFESSOR Piotr Daley [facility] CPT-57932 Level 3 Est. Patient 18:40:19 MODERN GREEK STUDIES PROFESSOR Piotr Daley [facility] CPT-74739 Level 3 Est. Patient 19:30:50 CDT Piotr Daley [facility] CPT-31070 Level 3 Est. Patient 22:06:44 CDT Katrina Rinaldi MD PhD [facility] CPT-55967 Level 3 Est. Patient 14:20:00 CDT Piotr Daley [facility] CPT-25917 Level 3 Est. Patient 14:15:22 MODERN GREEK STUDIES PROFESSOR Piotr Daley [facility] CPT-63303 Level 3 Est. Patient 20:19:57 MODERN GREEK STUDIES PROFESSOR Piotr Daley [facility] CPT-70917 Level 3 Est. Patient 16:44:32 CDT Piotr Daley [facility] CPT-59265 Level 3 Est. Patient 08:48:46 MODERN GREEK STUDIES PROFESSOR Piotr Daley [facility] CPT-05337 Level 3 Est. Patient 21:01:21 CDT Piotr Daley [facility] Procedures Code Procedure Name Date Entry Date Standard Description CPT-OV Office Visit 15:45:01 MODERN GREEK STUDIES PROFESSOR CPT-08155 Abd compl w upright 17:10:25 CDT
--- OUTSIDE RECORDS SUMMARY | 2018-07-18 10:21 | XMS REPORT | Clinical Summary ---
Author Author Admin, Isidra Organization [facility] Address Unknown Phone Unavailable Allergies, Adverse Reactions, [...] Coronary atherosclerosis of unspecified type of vessel, [place] or graft Back pain, thoracic region, left [...] LEG, 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 Inactive Sirisha Chen CLINICAL BIOCHEMICAL GENETICIST DEEP VENOUS THROMBOPHLEBITIS, LEG, 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 Inactive Sirisha Chen CLINICAL BIOCHEMICAL GENETICIST Seborrheic keratosis ICD-702.19 Inactive Sirisha Chen CLINICAL BIOCHEMICAL GENETICIST Bronchitis-Acute ICD-466.0 Inactive Piotr Daley DO Leg pain, right ICD-729.5 Inactive Sirisha Chen CLINICAL BIOCHEMICAL GENETICIST Right leg pain ICD-729.5 Inactive Sirisha Chen CLINICAL BIOCHEMICAL GENETICIST Bronchitis-Acute ICD-466.0 Inactive Sirisha Chen CLINICAL BIOCHEMICAL GENETICIST Knee pain, left ICD-719.46 Inactive Sirisha Chen CLINICAL BIOCHEMICAL GENETICIST Actinic keratoses ICD-702.0 Inactive Sirisha Chen CLINICAL BIOCHEMICAL GENETICIST Back pain, thoracic region, left ICD-724.1 Inactive [...] by mouth days two and three PREDNISONE 46885934474 Active Piotr Daley DO Active ZITHROMAX 250 MG ORAL TABLET Take two (2 ) tablets day one, then one (1) tablet a day for four (4) more days AZITHROMYCIN 94127991568 Active Piotr Daley DO Active PROAIR HFA 108 (90 BASE) MCG/ACT INHALATION AEROSOL SOLUTION 1-2 puffs four times a day as needed ALBUTEROL SULFATE 11135747774 No Longer Active Emelyn Norris Active DOXYCYCLINE HYCLATE 100 MG ORAL CAPSULE 1 cap by mouth BID x10 days DOXYCYCLINE HYCLATE 51170282343 No Longer Active Nella Harris APRN Active WARFARIN SODIUM 5 MG ORAL TABLET 1 tablet daily M-S, 1/2 tab on Heart WARFARIN SODIUM 42748206517 Active Piotr Daley DO Active PREDNISONE 20 MG ORAL TABLET 2 tabs daily for 3 days, 1 tab daily for 3 days, 1/2 tab daily for 2 days PREDNISONE 66537441684 No Longer Active Matthew Rangel MD Active TRAMADOL HCL 50 MG ORAL TABLET 1 po tid with ES Tylenol TRAMADOL HCL 15083866637 No Longer Active Matthew Rangel MD Active GABAPENTIN 300 MG ORAL CAPSULE 1 po q hs for nerve pain GABAPENTIN 40144525189 No Longer Active Matthew Rangel MD Active PREDNISONE 20 MG ORAL TABLET 2 tablets today, then 1 tablet days 2 through 4 PREDNISONE 29648156382 No Longer Active Piotr Daley DO Active AZITHROMYCIN 250 MG ORAL TABLET 2 po qd x 1 day, then 1 po qd x 4 days 07/12 AZITHROMYCIN 22370129285 No Longer Active Piotr Daley DO Active IBUPROFEN 800 MG ORAL TABLET 1 tab every 8 hours as needed 07/12 IBUPROFEN 65748783310 No Longer Active Piotr Daley DO Active LOMOTIL 2.5-0.025 MG ORAL TABLET 1 to 2 four times a day as needed for diarrhea DIPHENOXYLATE-ATROPINE 37781735440 No Longer Active Piotr Daley DO Active WARFARIN SODIUM 4 MG ORAL TABLET 1 tab every evening WARFARIN SODIUM 96316759055 No Longer Active Piotr Daley DO Active PREDNISONE 20 MG ORAL TABLET 1 tablet twice daily for 2 days, then 1 tablet once daily for 2 days PREDNISONE 80540668539 No Longer Active Piotr Daley DO Active PROMETHAZINE HCL 25 MG ORAL TABLET 1 four times a day as needed for nausea/ vomiting PROMETHAZINE HCL 20571118938 No Longer Active Piotr Daley DO Active TUSSIONEX PENNKINETIC ER 10-8 MG/5ML ORAL SUSPENSION EXTENDED RELEASE 5ml po q12hr PRN Cough HYDROCOD POLST-CHLORPHEN POLST 65467588865 No Longer Active Piotr Daley DO Active AZITHROMYCIN 250 MG ORAL TABLET 2 po qd x 1 day, then 1 po qd x 4 days 10/13 AZITHROMYCIN 04324700114 No Longer Active Piotr Daley DO Active AZITHROMYCIN 250 MG ORAL TABLET 2 po qd x 1 day, then 1 po qd x 4 days 05/07 AZITHROMYCIN 22723035289 No Longer Active Piotr Daley DO Active LISINOPRIL-HYDROCHLOROTHIAZIDE 10-12.5 MG ORAL TABLET 1 tab by mouth daily LISINOPRIL-HYDROCHLOROTHIAZIDE 00537093853 Active Piotr Daley DO Active LISINOPRIL 10 MG ORAL TABLET 1/2-1 tab po every other day LISINOPRIL 23042540845 No Longer Active Piotr Daley DO Active VENTOLIN HFA 108 (90 Base) MCG/ACT INHALATION AEROSOL SOLUTION 2 puffs four times a day PRN cough ALBUTEROL SULFATE 85022474232 No Longer Active Piotr Daley DO Active NYSTATIN-TRIAMCINOLONE 945126-0.1 UNIT/GM-% EXTERNAL CREAM Apply to area BID NYSTATIN-TRIAMCINOLONE 97418795058 No Longer Active Alena Chavira CLINICAL BIOCHEMICAL GENETICIST Active PHISOHEX 3 % LIQD Use Directed HEXACHLOROPHENE 61648365296 No Longer Active Sandra [place] Active AZITHROMYCIN 250 MG ORAL TABLET 2 po qd x 1 day, then 1 po qd x 4 days 10/21 AZITHROMYCIN 74875001730 No Longer Active Katrina Rinaldi MD PhD Active AZITHROMYCIN 250 MG ORAL TABLET 2 po qd x 1 day, then 1 po qd x 4 days 10/16 AZITHROMYCIN 68522205211 No Longer Active Piotr Daley DO Active AZITHROMYCIN 500 MG INTRAVENOUS SOLUTION RECONSTITUTED 1 po q day AZITHROMYCIN 54345302828 No Longer Active Piotr Daley DO Active NYSTATIN-TRIAMCINOLONE 905504-6.1 UNIT/GM-% EXTERNAL CREAM apply bid NYSTATIN-TRIAMCINOLONE 47229325211 No Longer Active Piotr Daley DO Active IBUPROFEN 800 MG ORAL TABLET 1 po q 8 hours prn pain sparinly IBUPROFEN 60161446953 No Longer Active Piotr Daley DO Active VITAMIN D3 5000 UNIT ORAL CAPSULE 1 po daily CHOLECALCIFEROL 03018660920 Active Piotr Daley DO Active IBUPROFEN 800 MG ORAL TABLET 1 po q 8 hours prn pain sparinly IBUPROFEN 800 MG ORAL TABLET 762598 IBUPROFEN Inactive NYSTATIN-TRIAMCINOLONE 846359-4.1 UNIT/GM-% EXTERNAL CREAM apply bid NYSTATIN-TRIAMCINOLONE 041257-9.1 UNIT/GM-% EXTERNAL CREAM 9507126 NYSTATIN-TRIAMCINOLONE Inactive AZITHROMYCIN 500 MG INTRAVENOUS SOLUTION RECONSTITUTED 1 po q day AZITHROMYCIN 500 MG INTRAVENOUS SOLUTION RECONSTITUTED 65607769784 AZITHROMYCIN Inactive VENTOLIN HFA 108 (90 Base) MCG/ACT INHALATION AEROSOL SOLUTION 2 puffs four times a day PRN cough VENTOLIN HFA 108 (90 Base) MCG/ ACT INHALATION AEROSOL SOLUTION ALBUTEROL SULFATE Inactive LISINOPRIL 10 MG ORAL TABLET 1/2-1 tab po every other day LISINOPRIL 10 MG ORAL TABLET 298407 LISINOPRIL Inactive TUSSIONEX PENNKINETIC ER 10-8 MG/5ML ORAL SUSPENSION EXTENDED RELEASE 5ml po q12hr PRN Cough TUSSIONEX PENNKINETIC ER 10-8 MG/5ML ORAL SUSPENSION EXTENDED RELEASE HYDROCOD POLST-CHLORPHEN POLST Inactive PROMETHAZINE HCL 25 MG ORAL TABLET 1 four times a day as needed for nausea/ vomiting PROMETHAZINE HCL 25 MG ORAL TABLET 773590 PROMETHAZINE HCL Inactive PREDNISONE 20 MG ORAL TABLET 1 tablet twice daily for 2 days, then 1 tablet once daily for 2 days PREDNISONE 20 MG ORAL TABLET 821928 PREDNISONE Inactive WARFARIN SODIUM 4 MG ORAL TABLET 1 tab every evening WARFARIN SODIUM 4 MG ORAL TABLET 515324 WARFARIN SODIUM Inactive LOMOTIL 2.5-0.025 MG ORAL TABLET 1 to 2 four times a day as needed for diarrhea LOMOTIL 2.5-0.025 MG ORAL TABLET 0477245 DIPHENOXYLATE-ATROPINE Inactive IBUPROFEN 800 MG ORAL TABLET 1 tab every 8 hours as needed 07/12 IBUPROFEN 800 MG ORAL TABLET 804992 IBUPROFEN Inactive PREDNISONE 20 MG ORAL TABLET 2 tablets today, then 1 tablet days 2 through 4 PREDNISONE 20 MG ORAL TABLET 247777 PREDNISONE Inactive GABAPENTIN 300 MG ORAL CAPSULE 1 po q hs for nerve pain GABAPENTIN 300 MG ORAL CAPSULE 826870 GABAPENTIN Inactive TRAMADOL HCL 50 MG ORAL TABLET 1 po tid with ES Tylenol TRAMADOL HCL 50 MG ORAL TABLET 616097 TRAMADOL HCL Inactive PROAIR HFA 108 (90 BASE) MCG/ACT INHALATION AEROSOL SOLUTION 1-2 puffs four times a day as needed PROAIR HFA 108 (90 BASE) MCG/ACT INHALATION AEROSOL SOLUTION ALBUTEROL SULFATE Inactive AZITHROMYCIN 250 MG ORAL TABLET 2 po qd x 1 day, then 1 po qd x 4 days 10/16 AZITHROMYCIN 250 MG ORAL TABLET 317101 AZITHROMYCIN Inactive AZITHROMYCIN 250 MG ORAL TABLET 2 po qd x 1 day, then 1 po qd x 4 days 10/21 AZITHROMYCIN 250 MG ORAL TABLET 863660 AZITHROMYCIN Inactive NYSTATIN-TRIAMCINOLONE 298151-6.1 UNIT/GM-% EXTERNAL CREAM Apply to area BID NYSTATIN-TRIAMCINOLONE 302487-6.1 UNIT/GM-% EXTERNAL CREAM 8872740 NYSTATIN-TRIAMCINOLONE Inactive AZITHROMYCIN 250 MG ORAL TABLET 2 po qd x 1 day, then 1 po qd x 4 days 05/07 AZITHROMYCIN 250 MG ORAL TABLET 570722 AZITHROMYCIN Inactive AZITHROMYCIN 250 MG ORAL TABLET 2 po qd x 1 day, then 1 po qd x 4 days 10/13 AZITHROMYCIN 250 MG ORAL TABLET 804430 AZITHROMYCIN Inactive AZITHROMYCIN 250 MG ORAL TABLET 2 po qd x 1 day, then 1 po qd x 4 days 07/12 AZITHROMYCIN 250 MG ORAL TABLET 820098 AZITHROMYCIN Inactive PREDNISONE 20 MG ORAL TABLET 2 tabs daily for 3 days, 1 tab daily for 3 days, 1/2 tab daily for 2 days PREDNISONE 20 MG ORAL TABLET 229998 PREDNISONE Inactive DOXYCYCLINE HYCLATE 100 MG ORAL CAPSULE 1 cap by mouth BID x10 days DOXYCYCLINE HYCLATE 100 MG ORAL CAPSULE 6774385 DOXYCYCLINE HYCLATE Inactive Advance Directives Directive Description [...] Panel - Chemistry sodium, serum 141 mmol/L 147-340 2147/01/24 potassium, serum 4.3 mmol/L 3.5-5.2 chloride, serum [...] % 11.0-15.0 platelet count 172 THOUSAND/UL 10*3/mm3 014-369 6585/04/12 mean platelet volume 8.6 fL 7.5-12.5 Lab Report: Prothrombin Time - Coagulation prothrombin time (patient) 27.8 SECS s 11.1-13.4 international normalized ratio (INR) 4.2 1.0-3.5 Lab Report: Prothrombin Time Hemochron - Coagulation prothrombin time (patient) 33.0 SECS s 18.9-24.9 Encounters Code Encounter Date Provider Facility CPT-54115 Level 3 Est. 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 Patient 10:34:54 SALES REPRESENTATIVE HEALTH INSURANCE Piotr Daley [facility] CPT-92613 Level 3 Est. Patient 17:10:19 CDT Nella Harris APRN [facility] CPT-46348 Level 3 Est. Patient 10:48:17 SALES REPRESENTATIVE HE[employer] INSURANCE Matthew Rangel MD [facility] CPT-73397 Level 4 Est. Patient 17:15:07 SALES REPRESENTATIVE HEALTH INSURANCE Piotr Daley [facility] CPT-53604 Level 3 Est. Patient 12:46:13 SALES REPRESENTATIVE HEALTH INSURANCE Piotr Daley [facility] CPT-34444 Level 3 Est. Patient 15:14:31 SALES REPRESENTATIVE HEALTH INSURANCE Piotr Daley [facility] CPT-30042 Level 3 Est. Patient 09:20:13 SALES REPRESENTATIVE HEALTH INSURANCE Piotr Daley [facility] CPT-96104 Level 3 Est. Patient 09:49:40 CDT Piotr Daley [facility] CPT-87219 Level 3 Est. Patient 16:28:11 CDT Piotr Daley [facility] CPT-57239 Level 3 Est. Patient 12:41:58 SALES REPRESENTATIVE HEALTH INSURANCE Piotr Daley [facility] CPT-25325 Level 3 Est. Patient 09:21:24 CDT Piotr Daley [facility] CPT-25833 Level 3 Est. Patient 09:21:11 CDT Piotr Daley [facility] CPT-19460 Level 3 Est. Patient 11:16:29 SALES REPRESENTATIVE HE[employer] INSURANCE Piotr Daley [facility] CPT-90933 Level 3 Est. Patient 18:40:19 SALES REPRESENTATIVE HEALTH INSURANCE Piotr Daley [facility] CPT-95871 Level 3 Est. Patient 19:30:50 CDT Piotr Daley [facility] CPT-46890 Level 3 Est. Patient 22:06:44 CDT Katrina Rinaldi MD PhD [facility] CPT-75977 Level 3 Est. Patient 14:20:00 CDT Piotr Daley [facility] CPT-88581 Level 3 Est. Patient 14:15:22 SALES REPRESENTATIVE HEALTH INSURANCE Piotr Daley [facility] CPT-74678 Level 3 Est. Patient 20:19:57 SALES REPRESENTATIVE HEALTH INSURANCE Piotr Daley [facility] CPT-09275 Level 3 Est. Patient 16:44:32 CDT Piotr Daley [facility] CPT-54282 Level 3 Est. Patient 08:48:46 SALES REPRESENTATIVE HEALTH INSURANCE Piotr Daley [facility] CPT-14942 Level 3 Est. Patient 21:01:21 CDT Piotr Daley [facility] Procedures Code Procedure Name Date Entry Date Standard Description CPT-G0439 Subsequent Annual Wellness Exam 10:34:52 SALES REPRESENTATIVE [employer] INSURANCE CPT-51669 BMP - LAB USE ONLY 17:19:11 SALES REPRESENTATIVE [employer] INSURANCE CPT-14815 PT/INR - LAB USE ONLY 17:19:10 SALES REPRESENTATIVE [employer] INSURANCE CPT-66055 Venipuncture Draw Fee 17:19:10 SALES REPRESENTATIVE [employer] INSURANCE CPT-91751 PT/INR - LAB USE ONLY 08:12:25 SALES REPRESENTATIVE HE[employer] INSURANCE CPT-44124 Venipuncture Draw Fee 08:12:24 SALES REPRESENTATIVE HE[employer] INSURANCE CPT-53591 Venipuncture Draw Fee 11:31:07 SALES REPRESENTATIVE [employer] INSURANCE CPT-81388 TPSA - LAB USE ONLY 11:31:07 SALES REPRESENTATIVE [employer] INSURANCE CPT-64310 PT/INR - LAB USE ONLY 11:31:07 SALES REPRESENTATIVE HE[employer] INSURANCE CPT-G0439 Subsequent Annual Wellness Exam 09:59:29 SALES REPRESENTATIVE [employer] INSURANCE CPT-60238 Creatinine - LAB USE ONLY 14:37:55 SALES REPRESENTATIVE [employer] INSURANCE CPT-57748 PT/INR - LAB USE ONLY 14:37:55 SALES REPRESENTATIVE HE[employer] INSURANCE CPT-47261 Venipuncture Draw Fee 14:37:55 SALES REPRESENTATIVE [employer] INSURANCE CPT-67351 LS spine comp w obliques - XRAY USE ONLY 12:59:25 SALES REPRESENTATIVE [employer] INSURANCE CPT-45766 PT/INR - LAB USE ONLY 13:49:20 CDT CPT-21697 Venipuncture Draw Fee 13:49:19 CDT CPT-73782 PT/INR - LAB USE ONLY 15:48:49 CDT CPT-09295 Venipuncture Draw Fee 15:48:49 CDT CPT-68278 Venipuncture Draw Fee 11:31:59 CDT CPT-12398 PT/INR - LAB USE ONLY 11:31:59 CDT CPT-77896 Venipuncture Draw Fee 13:29:15 CDT CPT-91107 Thoracolumbar AP/Lat 15:19:19 SALES REPRES[employer]IVE [employer]URANCE CPT-G0438 Initial Annual Wellness Exam 12:18:54 SALES REPRESENTATIVE [employer] INSURANCE CPT-06401 Knee 3V 09:57:38 CDT CPT-OV Office Visit 15:45:01 SALES REPRESENTATIVE [employer] INSURANCE CPT-55452 Abd compl w upright 17:10:25 CDT
--- OUTSIDE RECORDS SUMMARY | 2018-07-18 10:22 | XMS REPORT | Clinical Summary ---
Author Author Admin, Bita Organization [facility] Address Unknown Phone Unavailable Allergies, Adverse Reactions, Alerts Allergy Name Reaction Description Start Date Severity Status Provider PENICILLINS Mild No Longer Active Piotr Daley DO PENICILLINS Critical No Longer Active Piotr Wilson Edi DO PENICILLINS UNK Inactive Bernadette Elder Conditions or Problems Problem Name Problem Code Onset Date Status Entry Date Provider Comment Standard Description Annotate CAROTID ARTERY DISEASE 433.10 Active Piotr Dlaey DO Occlusion and stenosis of carotid artery, [...] PhD HEALTH MAINTENANCE EXAM ICD-V70.0 Inactive Katrina Rinadli MD PhD BRONCHITIS-ACUTE ICD-466.0 Inactive Piotr Daley [...] Knee pain, left ICD-719.46 Inactive Sirisha Chen MEDICAL EDUCATION MANAGER Actinic keratoses ICD-702.0 Inactive Sirisha Chen MEDICAL EDUCATION MANAGER Back pain, thoracic region, left ICD-724.1 Inactive Piotr Daley DO Thoracic back pain ICD-724.5 Inactive Sirisha Chen MEDICAL EDUCATION MANAGER Back pain lumbar ICD-724.2 Inactive Sirisha Chen MEDICAL EDUCATION MANAGER Insect bite ICD-919.4 Inactive Sirisha Chen MEDICAL EDUCATION MANAGER Pruritus ICD-698.9 Inactive Sirisha Chen MEDICAL EDUCATION MANAGER 04/09 Bronchitis-Acute ICD-466.0 Inactive Sirisha Chen MEDICAL EDUCATION MANAGER Dyspnea ICD-786.09 Inactive Sirisha Chen MEDICAL EDUCATION MANAGER 05/09 Medication List Medication Instructions Start Date Stop Date Generic Name NDC Status Provider Patient Instruction WARFARIN SODIUM 4 MG ORAL TABLET 1 tablet by mouth daily except 2mg on Saturday and Saturday WARFARIN SODIUM 32584367351 Active Sirisha Chen EZE Active MELOXICAM 15 MG ORAL TABLET 1 po q day for pain with food MELOXICAM 98580043672 Active Piotr Daley DO Active PREDNISONE 10 MG ORAL TABLET 1 tablet by mouth daily PREDNISONE 51525347178 No Longer Active Emelyn Norris Active TESSALON PERLES 100 MG ORAL CAPSULE 1-2 tablet by mouth 3 times daily 04/16 BENZONATATE 16920926979 No Longer Active Emelyn Norris Active PREDNISONE 20 MG ORAL TABLET two tabs by mouth today, then one tab by mouth days two and three PREDNISONE 59073920635 No Longer Active Piotr Daley DO Active CYCLOBENZAPRINE HCL 10 MG ORAL TABLET 1 tablet by mouth three times daily as needed for muscle spasm/pain CYCLOBENZAPRINE HCL 20101180318 Active Sirisha Chen LPN Active ZITHROMAX 250 MG ORAL TABLET Take two (2 ) tablets day one, then one (1) tablet a day for four (4) more days AZITHROMYCIN 52609814825 No Longer Active Piotr Daley DO Active PROAIR HFA 108 (90 BASE) MCG/ACT INHALATION AEROSOL SOLUTION 1-2 puffs four times a day as needed ALBUTEROL SULFATE 23063555519 No Longer Active Emelyn Norris Active DOXYCYCLINE HYCLATE 100 MG ORAL CAPSULE 1 cap by mouth BID x10 days DOXYCYCLINE HYCLATE 95344952747 No Longer Active Nella Harris APRN Active PREDNISONE 20 MG ORAL TABLET 2 tabs daily for 3 days, 1 tab daily for 3 days, 1/2 tab daily for 2 days PREDNISONE 46329023216 No Longer Active Matthew Rangel MD Active TRAMADOL HCL 50 MG ORAL TABLET 1 po tid with ES Tylenol TRAMADOL HCL 82190779111 No Longer Active Matthew Rangel MD Active GABAPENTIN 300 MG ORAL CAPSULE 1 po q hs for nerve pain GABAPENTIN 08037739572 No Longer Active Matthew Rangel MD Active PREDNISONE 20 MG ORAL TABLET 2 tablets today, then 1 tablet days 2 through 4 PREDNISONE 28216582421 No Longer Active Piotr Daley DO Active AZITHROMYCIN 250 MG ORAL TABLET 2 po qd x 1 day, then 1 po qd x 4 days 07/12 AZITHROMYCIN 78522059047 No Longer Active Piotr Daley DO Active IBUPROFEN 800 MG ORAL TABLET 1 tab every 8 hours as needed 07/12 IBUPROFEN 09068859394 No Longer Active Piotr Daley DO Active LOMOTIL 2.5-0.025 MG ORAL TABLET 1 to 2 four times a day as needed for diarrhea DIPHENOXYLATE-ATROPINE 67693937822 No Longer Active Piotr Daley DO Active WARFARIN SODIUM 4 MG ORAL TABLET 1 tab every evening WARFARIN SODIUM 97403214849 No Longer Active Piotr Daley DO Active PREDNISONE 20 MG ORAL TABLET 1 tablet twice daily for 2 days, then 1 tablet once daily for 2 days PREDNISONE 90989414513 No Longer Active Piotr Daley DO Active PROMETHAZINE HCL 25 MG ORAL TABLET 1 four times a day as needed for nausea/ vomiting PROMETHAZINE HCL 27765446285 No Longer Active Piotr Daley DO Active TUSSIONEX PENNKINETIC ER 10-8 MG/5ML ORAL SUSPENSION EXTENDED RELEASE 5ml po q12hr PRN Cough HYDROCOD POLST-CHLORPHEN POLST 80875764976 No Longer Active Piotr Daley DO Active AZITHROMYCIN 250 MG ORAL TABLET 2 po qd x 1 day, then 1 po qd x 4 days 10/13 AZITHROMYCIN 75337315230 No Longer Active Piotr Daley DO Active AZITHROMYCIN 250 MG ORAL TABLET 2 po qd x 1 day, then 1 po qd x 4 days 05/07 AZITHROMYCIN 25680032902 No Longer Active Piotr Daley DO Active LISINOPRIL-HYDROCHLOROTHIAZIDE 10-12.5 MG ORAL TABLET 1 tab by mouth daily LISINOPRIL-HYDROCHLOROTHIAZIDE 97739269943 Active Piotr Daley DO Active LISINOPRIL 10 MG ORAL TABLET 1/2-1 tab po every other day LISINOPRIL 39953965123 No Longer Active Piotr Daley DO Active VENTOLIN HFA 108 (90 Base) MCG/ACT INHALATION AEROSOL SOLUTION 2 puffs four times a day PRN cough ALBUTEROL SULFATE 25335600580 No Longer Active Piotr Daley DO Active NYSTATIN-TRIAMCINOLONE 984985-2.1 UNIT/GM-% EXTERNAL CREAM Apply to area BID NYSTATIN-TRIAMCINOLONE 83168620011 No Longer Active Alena Chavira MEDICAL EDUCATION MANAGER Active PHISOHEX 3 % LIQD Use Directed HEXACHLOROPHENE 74160033333 No Longer Active Sandra [place] Active AZITHROMYCIN 250 MG ORAL TABLET 2 po qd x 1 day, then 1 po qd x 4 days 10/21 AZITHROMYCIN 91286425636 No Longer Active Katrina Rinaldi MD PhD Active AZITHROMYCIN 250 MG ORAL TABLET 2 po qd x 1 day, then 1 po qd x 4 days 10/16 AZITHROMYCIN 71115205202 No Longer Active Piotr Daley DO Active AZITHROMYCIN 500 MG INTRAVENOUS SOLUTION RECONSTITUTED 1 po q day AZITHROMYCIN 35072295135 No Longer Active Piotr Daley DO Active NYSTATIN-TRIAMCINOLONE 443745-6.1 UNIT/GM-% EXTERNAL CREAM apply bid NYSTATIN-TRIAMCINOLONE 23955714125 No Longer Active Piotr Daley DO Active IBUPROFEN 800 MG ORAL TABLET 1 po q 8 hours prn pain sparinly IBUPROFEN 18059170752 No Longer Active Piotr Daley DO Active VITAMIN D3 5000 UNIT ORAL CAPSULE 1 po daily CHOLECALCIFEROL 09163698009 Active Piotr Daley DO Active IBUPROFEN 800 MG ORAL TABLET 1 po q 8 hours prn pain sparinly IBUPROFEN 800 MG ORAL TABLET 470414 IBUPROFEN Inactive NYSTATIN-TRIAMCINOLONE 596144-2.1 UNIT/GM-% EXTERNAL CREAM apply bid NYSTATIN-TRIAMCINOLONE 592952-4.1 UNIT/GM-% EXTERNAL CREAM 4047403 NYSTATIN-TRIAMCINOLONE Inactive AZITHROMYCIN 500 MG INTRAVENOUS SOLUTION RECONSTITUTED 1 po q day AZITHROMYCIN 500 MG INTRAVENOUS SOLUTION RECONSTITUTED 45185502689 AZITHROMYCIN Inactive VENTOLIN HFA 108 (90 Base) MCG/ACT INHALATION AEROSOL SOLUTION 2 puffs four times a day PRN cough VENTOLIN HFA 108 (90 Base) MCG/ ACT INHALATION AEROSOL SOLUTION ALBUTEROL SULFATE Inactive LISINOPRIL 10 MG ORAL TABLET 1/2-1 tab po every other day LISINOPRIL 10 MG ORAL TABLET 376298 LISINOPRIL Inactive TUSSIONEX PENNKINETIC ER 10-8 MG/5ML ORAL SUSPENSION EXTENDED RELEASE 5ml po q12hr PRN Cough TUSSIONEX PENNKINETIC ER 10-8 MG/5ML ORAL SUSPENSION EXTENDED RELEASE HYDROCOD POLST-CHLORPHEN POLST Inactive PROMETHAZINE HCL 25 MG ORAL TABLET 1 four times a day as needed for nausea/ vomiting PROMETHAZINE HCL 25 MG ORAL TABLET 497373 PROMETHAZINE HCL Inactive PREDNISONE 20 MG ORAL TABLET 1 tablet twice daily for 2 days, then 1 tablet once daily for 2 days PREDNISONE 20 MG ORAL TABLET 117607 PREDNISONE Inactive WARFARIN SODIUM 4 MG ORAL TABLET 1 tab every evening WARFARIN SODIUM 4 MG ORAL TABLET 130800 WARFARIN SODIUM Inactive LOMOTIL 2.5-0.025 MG ORAL TABLET 1 to 2 four times a day as needed for diarrhea LOMOTIL 2.5-0.025 MG ORAL TABLET 4796766 DIPHENOXYLATE-ATROPINE Inactive IBUPROFEN 800 MG ORAL TABLET 1 tab every 8 hours as needed 07/12 IBUPROFEN 800 MG ORAL TABLET 326541 IBUPROFEN Inactive PREDNISONE 20 MG ORAL TABLET 2 tablets today, then 1 tablet days 2 through 4 PREDNISONE 20 MG ORAL TABLET 182651 PREDNISONE Inactive GABAPENTIN 300 MG ORAL CAPSULE 1 po q hs for nerve pain GABAPENTIN 300 MG ORAL CAPSULE 405989 GABAPENTIN Inactive TRAMADOL HCL 50 MG ORAL TABLET 1 po tid with ES Tylenol TRAMADOL HCL 50 MG ORAL TABLET 344532 TRAMADOL HCL Inactive PROAIR HFA 108 (90 BASE) MCG/ACT INHALATION AEROSOL SOLUTION 1-2 puffs four times a day as needed PROAIR HFA 108 (90 BASE) MCG/ACT INHALATION AEROSOL SOLUTION ALBUTEROL SULFATE Inactive PREDNISONE 20 MG ORAL TABLET two tabs by mouth today, then one tab by mouth days two and three PREDNISONE 20 MG ORAL TABLET 531786 PREDNISONE Inactive TESSALON PERLES 100 MG ORAL CAPSULE 1-2 tablet by mouth 3 times daily 04/16 TESSALON PERLES 100 MG ORAL CAPSULE 819574 BENZONATATE Inactive PREDNISONE 10 MG ORAL TABLET 1 tablet by mouth daily PREDNISONE 10 MG ORAL TABLET 082818 PREDNISONE Inactive AZITHROMYCIN 250 MG ORAL TABLET 2 po qd x 1 day, then 1 po qd x 4 days 10/16 AZITHROMYCIN 250 MG ORAL TABLET 229350 AZITHROMYCIN Inactive AZITHROMYCIN 250 MG ORAL TABLET 2 po qd x 1 day, then 1 po qd x 4 days 10/21 AZITHROMYCIN 250 MG ORAL TABLET 889599 AZITHROMYCIN Inactive NYSTATIN-TRIAMCINOLONE 600081-5.1 UNIT/GM-% EXTERNAL CREAM Apply to area BID NYSTATIN-TRIAMCINOLONE 532303-8.1 UNIT/GM-% EXTERNAL CREAM 6600056 NYSTATIN-TRIAMCINOLONE Inactive AZITHROMYCIN 250 MG ORAL TABLET 2 po qd x 1 day, then 1 po qd x 4 days 05/07 AZITHROMYCIN 250 MG ORAL TABLET 350857 AZITHROMYCIN Inactive AZITHROMYCIN 250 MG ORAL TABLET 2 po qd x 1 day, then 1 po qd x 4 days 10/13 AZITHROMYCIN 250 MG ORAL TABLET 270346 AZITHROMYCIN Inactive AZITHROMYCIN 250 MG ORAL TABLET 2 po qd x 1 day, then 1 po qd x 4 days 07/12 AZITHROMYCIN 250 MG ORAL TABLET 238543 AZITHROMYCIN Inactive PREDNISONE 20 MG ORAL TABLET 2 tabs daily for 3 days, 1 tab daily for 3 days, 1/2 tab daily for 2 days PREDNISONE 20 MG ORAL TABLET 497560 PREDNISONE Inactive DOXYCYCLINE HYCLATE 100 MG ORAL CAPSULE 1 cap by mouth BID x10 days DOXYCYCLINE HYCLATE 100 MG ORAL CAPSULE 1308199 DOXYCYCLINE HYCLATE Inactive ZITHROMAX 250 MG ORAL TABLET Take two (2 ) tablets day one, then one (1) tablet a day for four (4) more days ZITHROMAX 250 MG ORAL TABLET 119911 AZITHROMYCIN Inactive Advance Directives Directive Description Start [...] 18.9-24.9 Encounters Code Encounter Date Provider Facility CPT-57445 Level 3 Est. Patient 15:59:25 MARINE UNDERWRITER Piotr Daley [facility] CPT-54657 Level 3 Est. Patient 12:33:59 MARINE UNDERWRITER Piotr Daley [facility] CPT-37864 Level 3 Est. Patient 15:56:17 MARINE UNDERWRITER Piotr Katie Edi [facility] CPT-96097 Level 3 Est. Patient 10:34:54 MARINE UNDERWRITER Piotr Daley [facility] CPT-62143 Level 3 Est. Patient 17:10:19 CDT Nella Harris APRN [facility] CPT-42279 Level 3 Est. Patient 10:48:17 MARINE UNDERWRITER Matthew Rangel MD [facility] CPT-40093 Level 4 Est. Patient 17:15:07 MARINE UNDERWRITER Piotr Wilson [facility] CPT-77320 Level 3 Est. Patient 12:46:13 MARINE UNDERWRITER Piotr Daley [facility] CPT-19637 Level 3 Est. Patient 15:14:31 MARINE UNDERWRITER Piotr Daley [facility] CPT-33204 Level 3 Est. Patient 09:20:13 MARINE UNDERWRITER Piotr Daley [facility] CPT-40446 Level 3 Est. Patient 09:49:40 CDT Piotr Daley [facility] CPT-55810 Level 3 Est. Patient 16:28:11 CDT Piotr Daley [facility] CPT-84585 Level 3 Est. Patient 12:41:58 MARINE UNDERWRITER Piotr Daley [facility] CPT-75094 Level 3 Est. Patient 09:21:24 CDT Piotr Wilson [facility] CPT-15577 Level 3 Est. Patient 09:21:11 CDT Piotr Wilson [facility] CPT-06808 Level 3 Est. Patient 11:16:29 MARINE UNDERWRITER Piotr Daley [facility] CPT-72730 Level 3 Est. Patient 18:40:19 MARINE UNDERWRITER Piotr Daley [facility] CPT-00604 Level 3 Est. Patient 19:30:50 CDT Piotr Daley [facility] CPT-90844 Level 3 Est. Patient 22:06:44 CDT Katrina Rinaldi MD [facility] CPT-95997 Level 3 Est. Patient 14:20:00 CDT Piotr Daley [facility] CPT-23862 Level 3 Est. Patient 14:15:22 MARINE UNDERWRITER Piotr Daley [facility] CPT-63551 Level 3 Est. Patient 20:19:57 MARINE UNDERWRITER Piotr Daley [facility] CPT-43146 Level 3 Est. Patient 16:44:32 CDT Piotr Daley [facility] CPT-88207 Level 3 Est. Patient 08:48:46 MARINE UNDERWRITER Piotr Daley [facility] CPT-57669 Level 3 Est. Patient 21:01:21 CDT Piotr Daley [facility] Procedures Code Procedure Name Date Entry Date Standard Description CPT-74596 Sacroiliac jt < 3V - XRAY USE ONLY 16:45:19 MARINE UNDERWRITER 05/09 CPT-35074 LS spine comp w obliques - XRAY USE ONLY 14:52:26 MARINE UNDERWRITER CPT-00353 Chest, 2 views 12:55:58 MARINE UNDERWRITER CPT-G0439 [facility] Annual Wellness Exam 10:34:52 MARINE UNDERWRITER CPT-76191 BMP - LAB USE ONLY 17:19:11 MARINE UNDERWRITER CPT-13071 PT/INR - LAB USE ONLY 17:19:10 MARINE UNDERWRITER CPT-71024 Venipuncture Draw Fee 17:19:10 MARINE UNDERWRITER CPT-68948 PT/INR - LAB USE ONLY 08:12:25 MARINE UNDERWRITER CPT-60362 Venipuncture Draw Fee 08:12:24 MARINE UNDERWRITER CPT-08297 Venipuncture Draw Fee 11:31:07 MARINE UNDERWRITER CPT-32190 TPSA - LAB USE ONLY 11:31:07 MARINE UNDERWRITER CPT-31211 PT/INR - LAB USE ONLY 11:31:07 MARINE UNDERWRITER CPT-G0439 Subsequent Annual Wellness Exam 09:59:29 MARINE UNDERWRITER CPT-93402 Creatinine - LAB USE ONLY 14:37:55 MARINE UNDERWRITER CPT-97571 PT/INR - LAB USE ONLY 14:37:55 MARINE UNDERWRITER CPT-23984 Venipuncture Draw Fee 14:37:55 MARINE UNDERWRITER CPT-79630 LS spine comp w obliques - XRAY USE ONLY 12:59:25 MARINE UNDERWRITER CPT-44479 PT/INR - LAB USE ONLY 13:49:20 CDT CPT-88563 Venipuncture Draw Fee 13:49:19 CDT CPT-73170 PT/INR - LAB USE ONLY 15:48:49 CDT CPT-10208 Venipuncture Draw Fee 15:48:49 CDT CPT-86980 Venipuncture Draw Fee 11:31:59 CDT CPT-97790 PT/INR - LAB USE ONLY 11:31:59 CDT CPT-30118 Venipuncture Draw Fee 13:29:15 CDT CPT-94435 Thoracolumbar AP/Lat 15:19:19 MARINE UNDERWRITER CPT-G0438 Initial Annual Wellness Exam 12:18:54 MARINE UNDERWRITER CPT-86007 Knee 3V 09:57:38 CDT CPT-OV Office Visit 15:45:01 MARINE UNDERWRITER CPT-89070 Abd compl w upright 17:10:25 CDT
--- OUTSIDE RECORDS SUMMARY | 2018-07-18 10:23 | XMS REPORT | Clinical Summary ---
Author Author Admin, YONG Organization [facility] Address Unknown Phone Unavailable Allergies, Adverse [...] of lower extremity Coumadin therapy V58.61 Active Aelna Ramey Long-term (current) use of anticoagulants Seborrheic [...] 1 tablet days 2 through 4 PREDNISONE 73849978877 No Longer Active Piotr Daley DO Active AZITHROMYCIN 250 MG TABS 2 po qd x 1 day, then 1 po qd x 4 days AZITHROMYCIN 95041659727 No Longer Active Piotr Daley DO Active IBUPROFEN 800 MG TABS 1 tab every 8 hours as needed IBUPROFEN 15980082543 No Longer Active Piotr Daley DO Active LOMOTIL 2.5-0.025 MG TAB 1 to 2 four times a day as needed for diarrhea 10/13 DIPHENOXYLATE-ATROPINE 96363667126 No Longer Active Piotr Daley DO Active WARFARIN SODIUM 5 MG TABS 1 tablet daily except for Saturday and 04/09 tablet. WARFARIN SODIUM 71919354301 Active Piotr Daley DO Active WARFARIN SODIUM 4 MG TABS 1 tab every evening WARFARIN SODIUM 80340913668 No Longer Active Piotr Daley DO Active PREDNISONE 20 MG TAB 1 tablet twice daily for 2 days, then 1 tablet once daily for 2 days PREDNISONE 22802988398 No Longer Active Piotr Daley DO Active PROMETHAZINE HCL 25 MG TABS 1 four times a day as needed for nausea/vomiting PROMETHAZINE HCL 48826960390 No Longer Active Piotr Daley DO Active TUSSIONEX PENNKINETIC ER 10-8 MG/5ML LQCR 5ml po q12hr PRN Cough HYDROCOD POLST-CHLORPHEN POLST 73855274264 No Longer Active Piotr Daley DO Active AZITHROMYCIN 250 MG TABS 2 po qd x 1 day, then 1 po qd x 4 days AZITHROMYCIN 13902055886 No Longer Active Piotr Daley DO Active AZITHROMYCIN 250 MG TABS 2 po qd x 1 day, then 1 po qd x 4 days AZITHROMYCIN 36344687386 No Longer Active Piotr Daley DO Active LISINOPRIL-HYDROCHLOROTHIAZIDE 10-12.5 MG TABS 1 tab by mouth daily LISINOPRIL-HYDROCHLOROTHIAZIDE 33384399116 Active Piotr Daley DO Active LISINOPRIL 10 MG TABS 1/2-1 tab po every other day LISINOPRIL 68689202949 No Longer Active Piotr Daley DO Active VENTOLIN HFA 108 (90 BASE) MCG/ACT AERS 2 puffs four times a day PRN cough ALBUTEROL SULFATE 15093282103 No Longer Active Piotr Daley DO Active NYSTATIN-TRIAMCINOLONE 094965-6.1 UNIT/GM-% CREA Apply to area BID NYSTATIN-TRIAMCINOLONE 59033658094 No Longer Active Alena D Fan SUPERVISOR [employer]RO[employer] Active PHISOHEX 3 % LIQD Use Directed HEXACHLOROPHENE 63348263416 No Longer Active Sandra [place] Active AZITHROMYCIN 250 MG TABS 2 po qd x 1 day, then 1 po qd x 4 days AZITHROMYCIN 50109750689 No Longer Active Katrina Rinaldi MD PhD Active AZITHROMYCIN 250 MG TABS 2 po qd x 1 day, then 1 po qd x 4 days AZITHROMYCIN 05813560601 No Longer Active Piotr Daley DO Active AZITHROMYCIN 500 MG SOLR 1 po q day AZITHROMYCIN 92390978821 No Longer Active Piotr Daley DO Active NYSTATIN-TRIAMCINOLONE 380660-5.1 UNIT/GM-% CREA apply bid 08/19 NYSTATIN-TRIAMCINOLONE 48137245783 No Longer Active Piotr Daley DO Active IBUPROFEN 800 MG TABS 1 po q 8 hours prn pain sparinly IBUPROFEN 20175174463 No Longer Active Piotr Daley DO Active VITAMIN D3 5000 UNIT CAPS 1 po daily CHOLECALCIFEROL 28503865241 Active Piotr Daley DO Active IBUPROFEN 800 MG TABS 1 po q 8 hours prn pain sparinly IBUPROFEN 800 MG TABS 803261 IBUPROFEN Inactive NYSTATIN-TRIAMCINOLONE 999095-5.1 UNIT/GM-% CREA apply bid 08/19 NYSTATIN-TRIAMCINOLONE 594603-5.1 UNIT/GM-% CREA 1898878 NYSTATIN- TRIAMCINOLONE Inactive AZITHROMYCIN 500 MG SOLR 1 po q day AZITHROMYCIN 500 MG SOLR 507248 AZITHROMYCIN Inactive VENTOLIN HFA 108 (90 BASE) MCG/ACT AERS 2 puffs four times a day PRN cough VENTOLIN HFA 108 (90 BASE) MCG/ACT AERS ALBUTEROL SULFATE Inactive LISINOPRIL 10 MG TABS 1/2-1 tab po every other day LISINOPRIL 10 MG TABS 710698 LISINOPRIL Inactive TUSSIONEX PENNKINETIC ER 10-8 MG/5ML LQCR 5ml po q12hr PRN Cough TUSSIONEX PENNKINETIC ER 10-8 MG/5ML LQCR HYDROCOD POLST- CHLORPHEN POLST Inactive PROMETHAZINE HCL 25 MG TABS 1 four times a day as needed for nausea/vomiting PROMETHAZINE HCL 25 MG TABS 548140 PROMETHAZINE HCL Inactive PREDNISONE 20 MG TAB 1 tablet twice daily for 2 days, then 1 tablet once daily for 2 days PREDNISONE 20 MG TAB 422233 PREDNISONE Inactive WARFARIN SODIUM 4 MG TABS 1 tab every evening WARFARIN SODIUM 4 MG TABS 432802 WARFARIN SODIUM Inactive LOMOTIL 2.5-0.025 MG TAB 1 to 2 four times a day as needed for diarrhea 10/13 LOMOTIL 2.5-0.025 MG TAB 8532688 DIPHENOXYLATE-ATROPINE Inactive IBUPROFEN 800 MG TABS 1 tab every 8 hours as needed IBUPROFEN 800 MG TABS 393325 IBUPROFEN Inactive PREDNISONE 20 MG TAB 2 tablets today, then 1 tablet days 2 through 4 PREDNISONE 20 MG TAB 303871 PREDNISONE Inactive AZITHROMYCIN 250 MG TABS 2 po qd x 1 day, then 1 po qd x 4 days AZITHROMYCIN 250 MG TABS 1928171 AZITHROMYCIN Inactive AZITHROMYCIN 250 MG TABS 2 po qd x 1 day, then 1 po qd x 4 days AZITHROMYCIN 250 MG TABS 2626598 AZITHROMYCIN Inactive NYSTATIN-TRIAMCINOLONE 278559-9.1 UNIT/GM-% CREA Apply to area BID NYSTATIN-TRIAMCINOLONE 173939-2.1 UNIT/GM-% CREA 5651368 NYSTATIN-TRIAMCINOLONE Inactive AZITHROMYCIN 250 MG TABS 2 po qd x 1 day, then 1 po qd x 4 days AZITHROMYCIN 250 MG TABS 5163098 AZITHROMYCIN Inactive AZITHROMYCIN 250 MG TABS 2 po qd x 1 day, then 1 po qd x 4 days AZITHROMYCIN 250 MG TABS 6660183 AZITHROMYCIN Inactive AZITHROMYCIN 250 MG TABS 2 po qd x 1 day, then 1 po qd x 4 days AZITHROMYCIN 250 MG TABS 8385985 AZITHROMYCIN Inactive Vital Signs Date Name Value [...] ... - Chemistry sodium, serum 142 mmol/L 336-144 4185/12/01 potassium, serum 4.7 mmol/L 3.5-5.2 chloride, serum [...] 142-424 Encounters Code Encounter Date Provider Facility CPT-54928 Level 3 Est. Patient 09:49:40 CDT Piotr Daley [facility] CPT-70532 Level 3 Est. Patient 16:28:11 CDT Piotr Daley [facility] CPT-26847 Level 3 Est. Patient 12:41:58 SETTER UP Piotr Daley [facility] CPT-83195 Level 3 Est. Patient 09:21:24 CDT Piotr Daley [facility] CPT-79815 Level 3 Est. Patient 09:21:11 CDT Piotr Daley [facility] CPT-62798 Level 3 Est. Patient 11:16:29 SETTER UP Piotr Daley [facility] CPT-19706 Level 3 Est. Patient 18:40:19 SETTER UP Piotr Daley [facility] CPT-28287 Level 3 Est. Patient 19:30:50 CDT Piotr Daley [facility] CPT-80134 Level 3 Est. Patient 22:06:44 CDT Katrina Rinaldi MD [facility] CPT-67424 Level 3 Est. Patient 14:20:00 CDT Piotr Daley [facility] CPT-39429 Level 3 Est. Patient 14:15:22 SETTER UP Piotr Daley [facility] CPT-44061 Level 3 Est. Patient 20:19:57 SETTER UP Piotr Daley [facility] CPT-13518 Level 3 Est. Patient 16:44:32 CDT Piotr Daley [facility] CPT-64485 Level 3 Est. Patient 08:48:46 SETTER UP Piotr Daley [facility] CPT-82857 Level 3 Est. Patient 21:01:21 CDT Piotr Daley [facility] Procedures Code Procedure Name Date Entry Date Standard Description CPT-81147 Knee 3V 09:57:38 CDT CPT-OV Office Visit 15:45:01 SETTER UP CPT-20088 Abd compl w upright 17:10:25 CDT
--- OUTSIDE RECORDS SUMMARY | 2018-07-18 10:24 | XMS REPORT | Clinical Summary ---
Author Author Admin, Iisdra Organization [employer] Address Unknown Phone Unavailable Allergies, Adverse Reactions, [...] of prostate Coronary artery disease 414.00 Active lAina Meyers APRN Coronary atherosclerosis of unspecified type [...] Katrina Rinaldi MD PhD BRONCHITIS-ACUTE ICD-466.0 Inactive iPotr Daley DO SCREENING, COLON CANCER ICD-V76.51 Inactive Katrina Rinaldi MD PhD BRONCHITIS-ACUTE ICD-466.0 Inactive Piotr Daley DO Bronchitis-Acute ICD-466.0 Inactive Piotr Daley DO Back pain, thoracic region, left ICD-724.1 Inactive Piotr Katie Daley DO Medication List Medication Instructions Start Date Stop Date Generic Name NDC Status Provider Patient Instruction GABAPENTIN 300 MG CAPS 1 po q hs for nerve pain GABAPENTIN 78113450238 Active Piotr Daley DO Active WARFARIN SODIUM 5 MG TABS 1 tablet daily WARFARIN SODIUM 32756045816 Active Simi Meyers Active TRAMADOL HCL 50 MG TABS 1 po tid with ES Tylenol TRAMADOL HCL 37404922215 Active Piotr Daley DO Active PREDNISONE 20 MG TAB 2 tablets today, then 1 tablet days 2 through 4 PREDNISONE 86131535072 No Longer Active Piotr Daley DO Active AZITHROMYCIN 250 MG TABS 2 po qd x 1 day, then 1 po qd x 4 days AZITHROMYCIN 71367627754 No Longer Active Piotr Daley DO Active IBUPROFEN 800 MG TABS 1 tab every 8 hours as needed IBUPROFEN 87329024189 No Longer Active Piotr Daley DO Active LOMOTIL 2.5-0.025 MG TAB 1 to 2 four times a day as needed for diarrhea 10/13 DIPHENOXYLATE-ATROPINE 11081744251 No Longer Active Piotr Daley DO Active WARFARIN SODIUM 4 MG TABS 1 tab every evening WARFARIN SODIUM 04188587907 No Longer Active Piotr Daley DO Active PREDNISONE 20 MG TAB 1 tablet twice daily for 2 days, then 1 tablet once daily for 2 days PREDNISONE 05239383978 No Longer Active Piotr Daley DO Active PROMETHAZINE HCL 25 MG TABS 1 four times a day as needed for nausea/vomiting PROMETHAZINE HCL 78961989509 No Longer Active Piotr Daley DO Active TUSSIONEX PENNKINETIC ER 10-8 MG/5ML LQCR 5ml po q12hr PRN Cough HYDROCOD POLST-CHLORPHEN POLST 44952529406 No Longer Active Piotr Daley DO Active AZITHROMYCIN 250 MG TABS 2 po qd x 1 day, then 1 po qd x 4 days AZITHROMYCIN 49096806358 No Longer Active Piotr Daley DO Active AZITHROMYCIN 250 MG TABS 2 po qd x 1 day, then 1 po qd x 4 days AZITHROMYCIN 12449595396 No Longer Active Piotr Daley DO Active LISINOPRIL-HYDROCHLOROTHIAZIDE 10-12.5 MG TABS 1 tab by mouth daily LISINOPRIL-HYDROCHLOROTHIAZIDE 13955896928 Active Hilary Ma MA Active LISINOPRIL 10 MG TABS 1/2-1 tab po every other day LISINOPRIL 13328478413 No Longer Active Piotr Daley DO Active VENTOLIN HFA 108 (90 BASE) MCG/ACT AERS 2 puffs four times a day PRN cough ALBUTEROL SULFATE 35917682989 No Longer Active Piotr Daley DO Active NYSTATIN-TRIAMCINOLONE 266822-6.1 UNIT/GM-% CREA Apply to area BID NYSTATIN-TRIAMCINOLONE 55571073806 No Longer Active Alena Chavira FOOD COUNTER WORKER Active PHISOHEX 3 % LIQD Use Directed HEXACHLOROPHENE 12001232841 No Longer Active Sandra [place] Active AZITHROMYCIN 250 MG TABS 2 po qd x 1 day, then 1 po qd x 4 days AZITHROMYCIN 52183310325 No Longer Active Katrina Rinaldi MD PhD Active AZITHROMYCIN 250 MG TABS 2 po qd x 1 day, then 1 po qd x 4 days AZITHROMYCIN 76164010399 No Longer Active Piotr Daley DO Active AZITHROMYCIN 500 MG SOLR 1 po q day AZITHROMYCIN 38439114981 No Longer Active Piotr Daley DO Active NYSTATIN-TRIAMCINOLONE 736607-6.1 UNIT/GM-% CREA apply bid 08/19 NYSTATIN-TRIAMCINOLONE 20976895960 No Longer Active Piotr Daley DO Active IBUPROFEN 800 MG TABS 1 po q 8 hours prn pain sparinly IBUPROFEN 96326716165 No Longer Active Piotr Daley DO Active VITAMIN D3 5000 UNIT CAPS 1 po daily CHOLECALCIFEROL 24743241049 Active Piotr Daley DO Active IBUPROFEN 800 MG TABS 1 po q 8 hours prn pain sparinly IBUPROFEN 800 MG TABS 214882 IBUPROFEN Inactive NYSTATIN-TRIAMCINOLONE 784117-3.1 UNIT/GM-% CREA apply bid 08/19 NYSTATIN-TRIAMCINOLONE 741291-4.1 UNIT/GM-% CREA 3258333 NYSTATIN- TRIAMCINOLONE Inactive AZITHROMYCIN 500 MG SOLR 1 po q day AZITHROMYCIN 500 MG SOLR 73031370842 AZITHROMYCIN Inactive VENTOLIN HFA 108 (90 BASE) MCG/ACT AERS 2 puffs four times a day PRN cough VENTOLIN HFA 108 (90 BASE) MCG/ACT AERS ALBUTEROL SULFATE Inactive LISINOPRIL 10 MG TABS 1/2-1 tab po every other day LISINOPRIL 10 MG TABS 055096 LISINOPRIL Inactive TUSSIONEX PENNKINETIC ER 10-8 MG/5ML LQCR 5ml po q12hr PRN Cough TUSSIONEX PENNKINETIC ER 10-8 MG/5ML LQCR HYDROCOD POLST- CHLORPHEN POLST Inactive PROMETHAZINE HCL 25 MG TABS 1 four times a day as needed for nausea/vomiting PROMETHAZINE HCL 25 MG TABS 199731 PROMETHAZINE HCL Inactive PREDNISONE 20 MG TAB 1 tablet twice daily for 2 days, then 1 tablet once daily for 2 days PREDNISONE 20 MG TAB 712391 PREDNISONE Inactive WARFARIN SODIUM 4 MG TABS 1 tab every evening WARFARIN SODIUM 4 MG TABS 557875 WARFARIN SODIUM Inactive LOMOTIL 2.5-0.025 MG TAB 1 to 2 four times a day as needed for diarrhea 10/13 LOMOTIL 2.5-0.025 MG TAB 1949166 DIPHENOXYLATE-ATROPINE Inactive IBUPROFEN 800 MG TABS 1 tab every 8 hours as needed IBUPROFEN 800 MG TABS 542089 IBUPROFEN Inactive PREDNISONE 20 MG TAB 2 tablets today, then 1 tablet days 2 through 4 PREDNISONE 20 MG TAB 379826 PREDNISONE Inactive AZITHROMYCIN 250 MG TABS 2 po qd x 1 day, then 1 po qd x 4 days AZITHROMYCIN 250 MG TABS 2065893 AZITHROMYCIN Inactive AZITHROMYCIN 250 MG TABS 2 po qd x 1 day, then 1 po qd x 4 days AZITHROMYCIN 250 MG TABS 8035174 AZITHROMYCIN Inactive NYSTATIN-TRIAMCINOLONE 767920-8.1 UNIT/GM-% CREA Apply to area BID NYSTATIN-TRIAMCINOLONE 987524-2.1 UNIT/GM-% CREA 8165349 NYSTATIN-TRIAMCINOLONE Inactive AZITHROMYCIN 250 MG TABS 2 po qd x 1 day, then 1 po qd x 4 days AZITHROMYCIN 250 MG TABS 7249701 AZITHROMYCIN Inactive AZITHROMYCIN 250 MG TABS 2 po qd x 1 day, then 1 po qd x 4 days AZITHROMYCIN 250 MG TABS 3617039 AZITHROMYCIN Inactive AZITHROMYCIN 250 MG TABS 2 po qd x 1 day, then 1 po qd x 4 days AZITHROMYCIN 250 MG TABS 8028778 AZITHROMYCIN Inactive Advance Directives Directive Description Start [...] % 11.6-14.8 platelet count 210 10^3/MM^3 10*3/mm3 389-043 3858/02/09 erythrocyte (RBC) count 5.20 10^6/MM^3 10*6/mm3 4.69-6.13 hemoglobin, blood 14.8 g/dL 13.5-17.5 hematocrit, blood 43.6 % 41.0-53.0 mean corpuscular volume, RBC 84 fL 80-97 mean corpuscular hemoglobin, RBC 28.4 pg 27.0-31.2 Lab Report: Comp. Metabolic Panel - Chemistry sodium, serum 141 mmol/L 933-629 1424/06/28 potassium, serum 4.2 mmol/L 3.5-5.2 chloride, serum [...] ratio (INR) 2.2 1.0-3.5 prothrombin time (patient) 18.3 SECS s [...] Negative Encounters Code Encounter Date Provider Facility CPT-87937 Level 4 Est. Patient 17:15:07 INSIDE SALES LEAD Piotr Daley [facility] CPT-36003 Level 3 Est. Patient 12:46:13 INSIDE SALES LEAD Piotr Daley [facility] CPT-44827 Level 3 Est. Patient 15:14:31 INSIDE SALES LEAD Piotr Daley [facility] CPT-81397 Level 3 Est. Patient 09:20:13 INSIDE SALES LEAD Piotr Daley [facility] CPT-32234 Level 3 Est. Patient 09:49:40 CDT Piotr Daley [facility] CPT-96532 Level 3 Est. Patient 16:28:11 CDT Piotr Daley [facility] CPT-60432 Level 3 Est. Patient 12:41:58 INSIDE SALES LEAD Piotr Daley [facility] CPT-99828 Level 3 Est. Patient 09:21:24 CDT Piotr Daley [facility] CPT-55905 Level 3 Est. Patient 09:21:11 CDT Piotr Daley [facility] CPT-02670 Level 3 Est. Patient 11:16:29 INSIDE SALES LEAD Piotr Daley [facility] CPT-25347 Level 3 Est. Patient 18:40:19 INSIDE SALES LEAD Piotr Daley [facility] CPT-18835 Level 3 Est. Patient 19:30:50 CDT Piotr Daley [facility] CPT-10482 Level 3 Est. Patient 22:06:44 CDT Katrina Rinaldi MD [facility] CPT-00664 Level 3 Est. Patient 14:20:00 CDT Piotr Daley [facility] CPT-94581 Level 3 Est. Patient 14:15:22 INSIDE SALES LEAD Piotr Daley [facility] CPT-54613 Level 3 Est. Patient 20:19:57 INSIDE SALES LEAD Piotr Daley [facility] CPT-35594 Level 3 Est. Patient 16:44:32 CDT Piotr Daley [facility] CPT-73793 Level 3 Est. Patient 08:48:46 INSIDE SALES LEAD Piotr Daley [facility] CPT-31567 Level 3 Est. Patient 21:01:21 CDT Piotr Daley [facility] Procedures Code Procedure Name Date Entry Date Standard Description CPT-47167 PT/INR - LAB USE ONLY 08:12:25 INSIDE SALES LEAD CPT-14198 Venipuncture Draw Fee 08:12:24 INSIDE SALES LEAD CPT-51904 Venipuncture Draw Fee 11:31:07 INSIDE SALES LEAD CPT-78791 TPSA - LAB USE ONLY 11:31:07 INSIDE SALES LEAD CPT-18848 PT/INR - LAB USE ONLY 11:31:07 INSIDE SALES LEAD CPT-G0439 [facility] Annual Wellness Exam 09:59:29 INSIDE SALES LEAD CPT-52796 Creatinine - LAB USE ONLY 14:37:55 INSIDE SALES LEAD CPT-84099 PT/INR - LAB USE ONLY 14:37:55 INSIDE SALES LEAD CPT-80539 Venipuncture Draw Fee 14:37:55 INSIDE SALES LEAD CPT-41626 LS spine comp w obliques - XRAY USE ONLY 12:59:25 INSIDE SALES LEAD CPT-81861 PT/INR - LAB USE ONLY 13:49:20 CDT CPT-31056 Venipuncture Draw Fee 13:49:19 CDT CPT-70374 PT/INR - LAB USE ONLY 15:48:49 CDT CPT-16850 Venipuncture Draw Fee 15:48:49 CDT CPT-42406 Venipuncture Draw Fee 11:31:59 CDT CPT-07668 PT/INR - LAB USE ONLY 11:31:59 CDT CPT-50017 Venipuncture Draw Fee 13:29:15 CDT CPT-17681 Thoracolumbar AP/Lat 15:19:19 INSIDE SALES LEAD CPT-G0438 Initial Annual Wellness Exam 12:18:54 INSIDE SALES LEAD CPT-30640 Knee 3V 09:57:38 CDT CPT-OV Office Visit 15:45:01 INSIDE SALES LEAD CPT-24871 Abd compl w upright 17:10:25 CDT
[2018-07-18 10:25] VITALS: BP 127/64
--- OUTSIDE RECORDS SUMMARY | 2018-07-18 10:25 | XMS REPORT | Clinical Summary ---
Author Author Admin, Isidra Organization [employer] Address Unknown Phone Unavailable Allergies, Adverse Reactions, [...] a health care facility BRONCHITIS-ACUTE 466.0 Inactive Piort Daley DO Acute bronchitis SCREENING, COLON CANCER [...] po q hs for nerve pain GABAPENTIN 52483803803 Active Piotr Daley DO Active WARFARIN SODIUM 5 MG TABS 1 tablet daily WARFARIN SODIUM 61333777703 Active Simi Meyers Active TRAMADOL HCL 50 MG TABS 1 po tid with ES Tylenol TRAMADOL HCL 98251494613 Active Piotr Daley DO Active PREDNISONE 20 MG TAB 2 tablets today, then 1 tablet days 2 through 4 PREDNISONE 06132157088 No Longer Active Piotr Daley DO Active AZITHROMYCIN 250 MG TABS 2 po qd x 1 day, then 1 po qd x 4 days AZITHROMYCIN 05393155850 No Longer Active Piotr Daley DO Active IBUPROFEN 800 MG TABS 1 tab every 8 hours as needed IBUPROFEN 63969590085 No Longer Active Piotr Daley DO Active LOMOTIL 2.5-0.025 MG TAB 1 to 2 four times a day as needed for diarrhea 10/13 DIPHENOXYLATE-ATROPINE 15696627866 No Longer Active Piotr Daley DO Active WARFARIN SODIUM 4 MG TABS 1 tab every evening WARFARIN SODIUM 14678980897 No Longer Active Piotr Daley DO Active PREDNISONE 20 MG TAB 1 tablet twice daily for 2 days, then 1 tablet once daily for 2 days PREDNISONE 96788322166 No Longer Active Piotr Daley DO Active PROMETHAZINE HCL 25 MG TABS 1 four times a day as needed for nausea/vomiting PROMETHAZINE HCL 94542741702 No Longer Active Piotr Daley DO Active TUSSIONEX PENNKINETIC ER 10-8 MG/5ML LQCR 5ml po q12hr PRN Cough HYDROCOD POLST-CHLORPHEN POLST 89926431311 No Longer Active Piotr Daley DO Active AZITHROMYCIN 250 MG TABS 2 po qd x 1 day, then 1 po qd x 4 days AZITHROMYCIN 80639374995 No Longer Active Piotr Daley DO Active AZITHROMYCIN 250 MG TABS 2 po qd x 1 day, then 1 po qd x 4 days AZITHROMYCIN 09008839296 No Longer Active Piotr Daley DO Active LISINOPRIL-HYDROCHLOROTHIAZIDE 10-12.5 MG TABS 1 tab by mouth daily LISINOPRIL-HYDROCHLOROTHIAZIDE 51834639390 Active Hilary Ma MA Active LISINOPRIL 10 MG TABS 1/2-1 tab po every other day LISINOPRIL 79049662177 No Longer Active Piotr Daley DO Active VENTOLIN HFA 108 (90 BASE) MCG/ACT AERS 2 puffs four times a day PRN cough ALBUTEROL SULFATE 56986050348 No Longer Active Piotr Daley DO Active NYSTATIN-TRIAMCINOLONE 829788-7.1 UNIT/GM-% CREA Apply to area BID NYSTATIN-TRIAMCINOLONE 70850486322 No Longer Active Alena Chavira KEYBOARDING CLERK Active PHISOHEX 3 % LIQD Use Directed HEXACHLOROPHENE 27899867704 No Longer Active Sandra [place] Active AZITHROMYCIN 250 MG TABS 2 po qd x 1 day, then 1 po qd x 4 days AZITHROMYCIN 74981954627 No Longer Active Katrina Rinaldi MD PhD Active AZITHROMYCIN 250 MG TABS 2 po qd x 1 day, then 1 po qd x 4 days AZITHROMYCIN 04373980120 No Longer Active Piotr Daley DO Active AZITHROMYCIN 500 MG SOLR 1 po q day AZITHROMYCIN 81640667348 No Longer Active Piotr Daley DO Active NYSTATIN-TRIAMCINOLONE 595675-6.1 UNIT/GM-% CREA apply bid 08/19 NYSTATIN-TRIAMCINOLONE 31327196806 No Longer Active Piotr Daley DO Active IBUPROFEN 800 MG TABS 1 po q 8 hours prn pain sparinly IBUPROFEN 34969259027 No Longer Active Piotr Daley DO Active VITAMIN D3 5000 UNIT CAPS 1 po daily CHOLECALCIFEROL 79012791494 Active Piotr Daley DO Active IBUPROFEN 800 MG TABS 1 po q 8 hours prn pain sparinly IBUPROFEN 800 MG TABS 512652 IBUPROFEN Inactive NYSTATIN-TRIAMCINOLONE 306287-2.1 UNIT/GM-% CREA apply bid 08/19 NYSTATIN-TRIAMCINOLONE 341671-6.1 UNIT/GM-% CREA 7346626 NYSTATIN- TRIAMCINOLONE Inactive AZITHROMYCIN 500 MG SOLR 1 po q day AZITHROMYCIN 500 MG SOLR 16600543847 AZITHROMYCIN Inactive VENTOLIN HFA 108 (90 BASE) MCG/ACT AERS 2 puffs four times a day PRN cough VENTOLIN HFA 108 (90 BASE) MCG/ACT AERS ALBUTEROL SULFATE Inactive LISINOPRIL 10 MG TABS 1/2-1 tab po every other day LISINOPRIL 10 MG TABS 761509 LISINOPRIL Inactive TUSSIONEX PENNKINETIC ER 10-8 MG/5ML LQCR 5ml po q12hr PRN Cough TUSSIONEX PENNKINETIC ER 10-8 MG/5ML LQCR HYDROCOD POLST- CHLORPHEN POLST Inactive PROMETHAZINE HCL 25 MG TABS 1 four times a day as needed for nausea/vomiting PROMETHAZINE HCL 25 MG TABS 717221 PROMETHAZINE HCL Inactive PREDNISONE 20 MG TAB 1 tablet twice daily for 2 days, then 1 tablet once daily for 2 days PREDNISONE 20 MG TAB 056004 PREDNISONE Inactive WARFARIN SODIUM 4 MG TABS 1 tab every evening WARFARIN SODIUM 4 MG TABS 488067 WARFARIN SODIUM Inactive LOMOTIL 2.5-0.025 MG TAB 1 to 2 four times a day as needed for diarrhea 10/13 LOMOTIL 2.5-0.025 MG TAB 0590833 DIPHENOXYLATE-ATROPINE Inactive IBUPROFEN 800 MG TABS 1 tab every 8 hours as needed IBUPROFEN 800 MG TABS 961710 IBUPROFEN Inactive PREDNISONE 20 MG TAB 2 tablets today, then 1 tablet days 2 through 4 PREDNISONE 20 MG TAB 874830 PREDNISONE Inactive AZITHROMYCIN 250 MG TABS 2 po qd x 1 day, then 1 po qd x 4 days AZITHROMYCIN 250 MG TABS 3443554 AZITHROMYCIN Inactive AZITHROMYCIN 250 MG TABS 2 po qd x 1 day, then 1 po qd x 4 days AZITHROMYCIN 250 MG TABS 0756500 AZITHROMYCIN Inactive NYSTATIN-TRIAMCINOLONE 158158-0.1 UNIT/GM-% CREA Apply to area BID NYSTATIN-TRIAMCINOLONE 961076-5.1 UNIT/GM-% CREA 6002990 NYSTATIN-TRIAMCINOLONE Inactive AZITHROMYCIN 250 MG TABS 2 po qd x 1 day, then 1 po qd x 4 days AZITHROMYCIN 250 MG TABS 6919315 AZITHROMYCIN Inactive AZITHROMYCIN 250 MG TABS 2 po qd x 1 day, then 1 po qd x 4 days AZITHROMYCIN 250 MG TABS 9053834 AZITHROMYCIN Inactive AZITHROMYCIN 250 MG TABS 2 po qd x 1 day, then 1 po qd x 4 days AZITHROMYCIN 250 MG TABS 0887326 AZITHROMYCIN Inactive Advance Directives Directive Description Start [...] % 11.6-14.8 platelet count 210 10^3/MM^3 10*3/mm3 421-641 1088/02/09 erythrocyte (RBC) count 5.20 10^6/MM^3 10*6/mm3 4.69-6.13 hemoglobin, blood 14.8 g/dL 13.5-17.5 hematocrit, blood 43.6 % 41.0-53.0 mean corpuscular volume, RBC 84 fL 80-97 mean corpuscular hemoglobin, RBC 28.4 pg 27.0-31.2 Lab Report: Comp. Metabolic Panel - Chemistry sodium, serum 141 mmol/L 613-793 1639/06/28 carbon dioxide, venous blood 31.0 mmol/L 21.0-32.0 [...] Time - Coagulation international normalized ratio (INR) 1.9 1.0-3.5 prothrombin time (patient) 23.8 SECS s 11.1-13.4 international normalized ratio (INR) 3.2 1.0-3.5 prothrombin time (patient) 23.1 SECS s 11.1-13.4 international normalized ratio (INR) 3.0 1.0-3.5 prothrombin time (patient) 16.6 SECS s 11.1-13.4 prothrombin time (patient) 22.8 [...] Negative Encounters Code Encounter Date Provider Facility CPT-83057 Level 4 Est. Patient 17:15:07 CADDIE Piotr Daley [facility] CPT-51892 Level 3 Est. Patient 12:46:13 CADDIE Piotr Daley [facility] CPT-07884 Level 3 Est. Patient 15:14:31 CADDIE Piotr aDley [facility] CPT-44577 Level 3 Est. Patient 09:20:13 CADDIE Piotr Daley [facility] CPT-70931 Level 3 Est. Patient 09:49:40 CDT Piotr Daley [facility] CPT-50582 Level 3 Est. Patient 16:28:11 CDT Piotr Daley [facility] CPT-09969 Level 3 Est. Patient 12:41:58 CADDIE Piotr Daley [facility] CPT-79838 Level 3 Est. Patient 09:21:24 CDT Piotr Daley [facility] CPT-95859 Level 3 Est. Patient 09:21:11 CDT Piotr Daley [facility] CPT-59150 Level 3 Est. Patient 11:16:29 CADDIE Piotr Daley [facility] CPT-39014 Level 3 Est. Patient 18:40:19 CADDIE Piotr Daley [facility] CPT-42500 Level 3 Est. Patient 19:30:50 CDT Piotr Daley [facility] CPT-41083 Level 3 Est. Patient 22:06:44 CDT Katrina Rinaldi MD PhD [facility] CPT-44977 Level 3 Est. Patient 14:20:00 CDT Piotr Daley [facility] CPT-57732 Level 3 Est. Patient 14:15:22 CADDIE Piotr Daley [facility] CPT-72126 Level 3 Est. Patient 20:19:57 CADDIE Piotr Daley [facility] CPT-72945 Level 3 Est. Patient 16:44:32 CDT Piotr Daley [facility] CPT-32047 Level 3 Est. Patient 08:48:46 CADDIE Piotr Daley [facility] CPT-57124 Level 3 Est. Patient 21:01:21 CDT Piotr Daley [facility] Procedures Code Procedure Name Date Entry Date Standard Description CPT-73366 Venipuncture Draw Fee 11:31:07 CADDIE CPT-62466 TPSA - LAB USE ONLY 11:31:07 CADDIE CPT-55569 PT/INR - LAB USE ONLY 11:31:07 CADDIE CPT-G0439 [facility] Annual Wellness Exam 09:59:29 CADDIE CPT-26838 Creatinine - LAB USE ONLY 14:37:55 CADDIE CPT-66439 PT/INR - LAB USE ONLY 14:37:55 CADDIE CPT-75475 Venipuncture Draw Fee 14:37:55 CADDIE CPT-13046 LS spine comp w obliques - XRAY USE ONLY 12:59:25 CADDIE CPT-02089 PT/INR - LAB USE ONLY 13:49:20 CDT CPT-07504 Venipuncture Draw Fee 13:49:19 CDT CPT-12586 PT/INR - LAB USE ONLY 15:48:49 CDT CPT-22428 Venipuncture Draw Fee 15:48:49 CDT CPT-85695 Venipuncture Draw Fee 11:31:59 CDT CPT-00982 PT/INR - LAB USE ONLY 11:31:59 CDT CPT-05707 Venipuncture Draw Fee 13:29:15 CDT CPT-71656 Thoracolumbar AP/Lat 15:19:19 CADDIE CPT-G0438 Initial Annual Wellness Exam 12:18:54 CADDIE CPT-15814 Knee 3V 09:57:38 CDT CPT-OV Office Visit 15:45:01 CADDIE CPT-90650 Abd compl w upright 17:10:25 CDT
--- OUTSIDE RECORDS SUMMARY | 2018-07-18 10:25 | XMS REPORT | Clinical Summary ---
Author Author Admin, [employer] Organization [employer] Address Unknown Phone Unavailable Allergies, Adverse [...] Coronary atherosclerosis of unspecified type of vessel, [place] or graft Back pain, thoracic region, [...] Knee pain, left ICD-719.46 Inactive Sirisha Chen SHOVE UP Actinic keratoses ICD-702.0 Inactive Sirisha Chen SHOVE UP Back pain, thoracic region, left ICD-724.1 Inactive Piotr Daley DO Thoracic back pain ICD-724.5 Inactive Sirisha Chen SHOVE UP Back pain lumbar ICD-724.2 Inactive Sirisha Chen SHOVE UP Insect bite ICD-919.4 Inactive Sirisha Chen SHOVE UP Pruritus ICD-698.9 Inactive Sirisha Chen SHOVE UP 04/09 Bronchitis-Acute ICD-466.0 Inactive Sirisha Chen SHOVE UP Dyspnea ICD-786.09 Inactive Sirisha Chen SHOVE UP 05/09 Medication List Medication Instructions Start Date Stop Date Generic Name NDC Status Provider Patient Instruction WARFARIN SODIUM 4 MG ORAL TABLET 1 tablet by mouth daily WARFARIN SODIUM 76411380406 Active Anahy Loja Active MELOXICAM 15 MG ORAL TABLET 1 po q day for pain with food MELOXICAM 29453320303 Active Piotr Daley DO Active PREDNISONE 10 MG ORAL TABLET 1 tablet by mouth daily PREDNISONE 68785643503 No Longer Active Emelyn Norris Active TESSALON PERLES 100 MG ORAL CAPSULE 1-2 tablet by mouth 3 times daily 04/16 BENZONATATE 54897167573 No Longer Active Emelyn Norris Active PREDNISONE 20 MG ORAL TABLET two tabs by mouth today, then one tab by mouth days two and three PREDNISONE 88096628898 No Longer Active Piotr Daley DO Active CYCLOBENZAPRINE HCL 10 MG ORAL TABLET 1 tablet by mouth three times daily as needed for muscle spasm/pain CYCLOBENZAPRINE HCL 31479865685 Active Sirisha Gustavo SHOVE UP Active ZITHROMAX 250 MG ORAL TABLET Take two (2 ) tablets day one, then one (1) tablet a day for four (4) more days AZITHROMYCIN 67984961743 No Longer Active Piotr Daley DO Active PROAIR HFA 108 (90 BASE) MCG/ACT INHALATION AEROSOL SOLUTION 1-2 puffs four times a day as needed ALBUTEROL SULFATE 17711486528 No Longer Active Emelyn Norris Active DOXYCYCLINE HYCLATE 100 MG ORAL CAPSULE 1 cap by mouth BID x10 days DOXYCYCLINE HYCLATE 16134759545 No Longer Active Nella Harris APRN Active PREDNISONE 20 MG ORAL TABLET 2 tabs daily for 3 days, 1 tab daily for 3 days, 1/2 tab daily for 2 days PREDNISONE 93975535834 No Longer Active Matthew Rangel MD Active TRAMADOL HCL 50 MG ORAL TABLET 1 po tid with ES Tylenol TRAMADOL HCL 78299386507 No Longer Active Matthew Rangel MD Active GABAPENTIN 300 MG ORAL CAPSULE 1 po q hs for nerve pain GABAPENTIN 51343414883 No Longer Active Matthew Rangel MD Active PREDNISONE 20 MG ORAL TABLET 2 tablets today, then 1 tablet days 2 through 4 PREDNISONE 08107373673 No Longer Active Piotr Daley DO Active AZITHROMYCIN 250 MG ORAL TABLET 2 po qd x 1 day, then 1 po qd x 4 days 07/12 AZITHROMYCIN 87760369157 No Longer Active Piotr Daley DO Active IBUPROFEN 800 MG ORAL TABLET 1 tab every 8 hours as needed 07/12 IBUPROFEN 58577338228 No Longer Active Piotr Daley DO Active LOMOTIL 2.5-0.025 MG ORAL TABLET 1 to 2 four times a day as needed for diarrhea DIPHENOXYLATE-ATROPINE 28847294528 No Longer Active Piotr W Edi DO Active WARFARIN SODIUM 4 MG ORAL TABLET 1 tab every evening WARFARIN SODIUM 62426670747 No Longer Active Piotr Daley DO Active PREDNISONE 20 MG ORAL TABLET 1 tablet twice daily for 2 days, then 1 tablet once daily for 2 days PREDNISONE 60027089191 No Longer Active Piotr Daley DO Active PROMETHAZINE HCL 25 MG ORAL TABLET 1 four times a day as needed for nausea/ vomiting PROMETHAZINE HCL 96789106014 No Longer Active Piotr Daley DO Active TUSSIONEX PENNKINETIC ER 10-8 MG/5ML ORAL SUSPENSION EXTENDED RELEASE 5ml po q12hr PRN Cough HYDROCOD POLST-CHLORPHEN POLST 08409358489 No Longer Active Piotr Daley DO Active AZITHROMYCIN 250 MG ORAL TABLET 2 po qd x 1 day, then 1 po qd x 4 days 10/13 AZITHROMYCIN 76962117082 No Longer Active Piotr Daley DO Active AZITHROMYCIN 250 MG ORAL TABLET 2 po qd x 1 day, then 1 po qd x 4 days 05/07 AZITHROMYCIN 84362415363 No Longer Active Piotr Daley DO Active LISINOPRIL-HYDROCHLOROTHIAZIDE 10-12.5 MG ORAL TABLET 1 tab by mouth daily LISINOPRIL-HYDROCHLOROTHIAZIDE 51728543069 Active Piotr Daley DO Active LISINOPRIL 10 MG ORAL TABLET 1/2-1 tab po every other day LISINOPRIL 45752654077 No Longer Active Piotr Daley DO Active VENTOLIN HFA 108 (90 Base) MCG/ACT INHALATION AEROSOL SOLUTION 2 puffs four times a day PRN cough ALBUTEROL SULFATE 97807131227 No Longer Active Piotr Daley DO Active NYSTATIN-TRIAMCINOLONE 741924-0.1 UNIT/GM-% EXTERNAL CREAM Apply to area BID NYSTATIN-TRIAMCINOLONE 82642713952 No Longer Active Alena Chavira SHOVE UP Active PHISOHEX 3 % LIQD Use Directed HEXACHLOROPHENE 25952059611 No Longer Active Sandra [place] Active AZITHROMYCIN 250 MG ORAL TABLET 2 po qd x 1 day, then 1 po qd x 4 days 10/21 AZITHROMYCIN 52226964214 No Longer Active Katrina Rinaldi MD PhD Active AZITHROMYCIN 250 MG ORAL TABLET 2 po qd x 1 day, then 1 po qd x 4 days 10/16 AZITHROMYCIN 29825270511 No Longer Active Piotr Daley DO Active AZITHROMYCIN 500 MG INTRAVENOUS SOLUTION RECONSTITUTED 1 po q day AZITHROMYCIN 58126150014 No Longer Active Piotr Daley DO Active NYSTATIN-TRIAMCINOLONE 879837-8.1 UNIT/GM-% EXTERNAL CREAM apply bid NYSTATIN-TRIAMCINOLONE 27782873480 No Longer Active Piotr Daley DO Active IBUPROFEN 800 MG ORAL TABLET 1 po q 8 hours prn pain sparinly IBUPROFEN 86871627814 No Longer Active Piotr Daley DO Active VITAMIN D3 5000 UNIT ORAL CAPSULE 1 po daily CHOLECALCIFEROL 23652982758 Active Piotr Daley DO Active IBUPROFEN 800 MG ORAL TABLET 1 po q 8 hours prn pain sparinly IBUPROFEN 800 MG ORAL TABLET 724897 IBUPROFEN Inactive NYSTATIN-TRIAMCINOLONE 783964-3.1 UNIT/GM-% EXTERNAL CREAM apply bid NYSTATIN-TRIAMCINOLONE 006870-0.1 UNIT/GM-% EXTERNAL CREAM 5678059 NYSTATIN-TRIAMCINOLONE Inactive AZITHROMYCIN 500 MG INTRAVENOUS SOLUTION RECONSTITUTED 1 po q day AZITHROMYCIN 500 MG INTRAVENOUS SOLUTION RECONSTITUTED 80413465418 AZITHROMYCIN Inactive VENTOLIN HFA 108 (90 Base) MCG/ACT INHALATION AEROSOL SOLUTION 2 puffs four times a day PRN cough VENTOLIN HFA 108 (90 Base) MCG/ ACT INHALATION AEROSOL SOLUTION ALBUTEROL SULFATE Inactive LISINOPRIL 10 MG ORAL TABLET 1/2-1 tab po every other day LISINOPRIL 10 MG ORAL TABLET 973260 LISINOPRIL Inactive TUSSIONEX PENNKINETIC ER 10-8 MG/5ML ORAL SUSPENSION EXTENDED RELEASE 5ml po q12hr PRN Cough TUSSIONEX PENNKINETIC ER 10-8 MG/5ML ORAL SUSPENSION EXTENDED RELEASE HYDROCOD POLST-CHLORPHEN POLST Inactive PROMETHAZINE HCL 25 MG ORAL TABLET 1 four times a day as needed for nausea/ vomiting PROMETHAZINE HCL 25 MG ORAL TABLET 303026 PROMETHAZINE HCL Inactive PREDNISONE 20 MG ORAL TABLET 1 tablet twice daily for 2 days, then 1 tablet once daily for 2 days PREDNISONE 20 MG ORAL TABLET 512088 PREDNISONE Inactive WARFARIN SODIUM 4 MG ORAL TABLET 1 tab every evening WARFARIN SODIUM 4 MG ORAL TABLET 836236 WARFARIN SODIUM Inactive LOMOTIL 2.5-0.025 MG ORAL TABLET 1 to 2 four times a day as needed for diarrhea LOMOTIL 2.5-0.025 MG ORAL TABLET 7111576 DIPHENOXYLATE-ATROPINE Inactive IBUPROFEN 800 MG ORAL TABLET 1 tab every 8 hours as needed 07/12 IBUPROFEN 800 MG ORAL TABLET 699356 IBUPROFEN Inactive PREDNISONE 20 MG ORAL TABLET 2 tablets today, then 1 tablet days 2 through 4 PREDNISONE 20 MG ORAL TABLET 921686 PREDNISONE Inactive GABAPENTIN 300 MG ORAL CAPSULE 1 po q hs for nerve pain GABAPENTIN 300 MG ORAL CAPSULE 763600 GABAPENTIN Inactive TRAMADOL HCL 50 MG ORAL TABLET 1 po tid with ES Tylenol TRAMADOL HCL 50 MG ORAL TABLET 410634 TRAMADOL HCL Inactive PROAIR HFA 108 (90 BASE) MCG/ACT INHALATION AEROSOL SOLUTION 1-2 puffs four times a day as needed PROAIR HFA 108 (90 BASE) MCG/ACT INHALATION AEROSOL SOLUTION ALBUTEROL SULFATE Inactive PREDNISONE 20 MG ORAL TABLET two tabs by mouth today, then one tab by mouth days two and three PREDNISONE 20 MG ORAL TABLET 904419 PREDNISONE Inactive TESSALON PERLES 100 MG ORAL CAPSULE 1-2 tablet by mouth 3 times daily 04/16 TESSALON PERLES 100 MG ORAL CAPSULE 802468 BENZONATATE Inactive PREDNISONE 10 MG ORAL TABLET 1 tablet by mouth daily PREDNISONE 10 MG ORAL TABLET 130307 PREDNISONE Inactive AZITHROMYCIN 250 MG ORAL TABLET 2 po qd x 1 day, then 1 po qd x 4 days 10/16 AZITHROMYCIN 250 MG ORAL TABLET 453247 AZITHROMYCIN Inactive AZITHROMYCIN 250 MG ORAL TABLET 2 po qd x 1 day, then 1 po qd x 4 days 10/21 AZITHROMYCIN 250 MG ORAL TABLET 932147 AZITHROMYCIN Inactive NYSTATIN-TRIAMCINOLONE 364965-6.1 UNIT/GM-% EXTERNAL CREAM Apply to area BID NYSTATIN-TRIAMCINOLONE 139068-2.1 UNIT/GM-% EXTERNAL CREAM 9830616 NYSTATIN-TRIAMCINOLONE Inactive AZITHROMYCIN 250 MG ORAL TABLET 2 po qd x 1 day, then 1 po qd x 4 days 05/07 AZITHROMYCIN 250 MG ORAL TABLET 891232 AZITHROMYCIN Inactive AZITHROMYCIN 250 MG ORAL TABLET 2 po qd x 1 day, then 1 po qd x 4 days 10/13 AZITHROMYCIN 250 MG ORAL TABLET 785061 AZITHROMYCIN Inactive AZITHROMYCIN 250 MG ORAL TABLET 2 po qd x 1 day, then 1 po qd x 4 days 07/12 AZITHROMYCIN 250 MG ORAL TABLET 770001 AZITHROMYCIN Inactive PREDNISONE 20 MG ORAL TABLET 2 tabs daily for 3 days, 1 tab daily for 3 days, 1/2 tab daily for 2 days PREDNISONE 20 MG ORAL TABLET 436140 PREDNISONE Inactive DOXYCYCLINE HYCLATE 100 MG ORAL CAPSULE 1 cap by mouth BID x10 days DOXYCYCLINE HYCLATE 100 MG ORAL CAPSULE 7761637 DOXYCYCLINE HYCLATE Inactive ZITHROMAX 250 MG ORAL TABLET Take two (2 ) tablets day one, then one (1) tablet a day for four (4) more days ZITHROMAX 250 MG ORAL TABLET 820025 AZITHROMYCIN Inactive Advance Directives Directive Description Start [...] 18.9-24.9 Encounters Code Encounter Date Provider Facility CPT-26723 Level 3 Est. Patient 15:59:25 ELECTROMEDICAL EQUIPMENT TECHNICIAN Piotr Katie Edi [facility] CPT-18910 Level 3 Est. Patient 12:33:59 ELECTROMEDICAL EQUIPMENT TECHNICIAN Piotr Daley [facility] CPT-84089 Level 3 Est. Patient 15:56:17 ELECTROMEDICAL EQUIPMENT TECHNICIAN Piotr Katie Edi [facility] CPT-80442 Level 3 Est. Patient 10:34:54 ELECTROMEDICAL EQUIPMENT TECHNICIAN Piotr Daley [facility] CPT-43192 Level 3 Est. Patient 17:10:19 CDT Nella Harris APRN [facility] CPT-31293 Level 3 Est. Patient 10:48:17 ELECTROMEDICAL EQUIPMENT TECHNICIAN Matthew Rangel MD [facility] CPT-92787 Level 4 Est. Patient 17:15:07 ELECTROMEDICAL EQUIPMENT TECHNICIAN Piotr Katie Edi [facility] CPT-76257 Level 3 Est. Patient 12:46:13 ELECTROMEDICAL EQUIPMENT TECHNICIAN Piotr Katie Edi [facility] CPT-67697 Level 3 Est. Patient 15:14:31 ELECTROMEDICAL EQUIPMENT TECHNICIAN Piotr Katie Edi [facility] CPT-83969 Level 3 Est. Patient 09:20:13 ELECTROMEDICAL EQUIPMENT TECHNICIAN Piotr Wilson Edi [facility] CPT-98661 Level 3 Est. Patient 09:49:40 CDT Piotr Wilson [facility] CPT-97413 Level 3 Est. Patient 16:28:11 CDT Piotr Wilson Edi [facility] CPT-42110 Level 3 Est. Patient 12:41:58 ELECTROMEDICAL EQUIPMENT TECHNICIAN Piotr Daley [facility] CPT-52340 Level 3 Est. Patient 09:21:24 CDT Piotr Wilson [facility] CPT-71744 Level 3 Est. Patient 09:21:11 CDT Piotr Wilson [facility] CPT-34688 Level 3 Est. Patient 11:16:29 ELECTROMEDICAL EQUIPMENT TECHNICIAN Piotr Daley [facility] CPT-42303 Level 3 Est. Patient 18:40:19 ELECTROMEDICAL EQUIPMENT TECHNICIAN Piotr Daley [facility] CPT-42994 Level 3 Est. Patient 19:30:50 CDT Piotr Daley [facility] CPT-34591 Level 3 Est. Patient 22:06:44 CDT Katrina Rinaldi MD [facility] CPT-91188 Level 3 Est. Patient 14:20:00 CDT Piotr Daley [facility] CPT-98963 Level 3 Est. Patient 14:15:22 ELECTROMEDICAL EQUIPMENT TECHNICIAN Piotr Daley [facility] CPT-40903 Level 3 Est. Patient 20:19:57 ELECTROMEDICAL EQUIPMENT TECHNICIAN Piotr Daley [facility] CPT-56310 Level 3 Est. Patient 16:44:32 CDT Piotr Daley [facility] CPT-08232 Level 3 Est. Patient 08:48:46 ELECTROMEDICAL EQUIPMENT TECHNICIAN Piotr Daley [facility] CPT-34395 Level 3 Est. Patient 21:01:21 CDT Piotr Daley [facility] Procedures Code Procedure Name Date Entry Date Standard Description CPT-68584 Sacroiliac jt < 3V - XRAY USE ONLY 16:45:19 ELECTROMEDICAL EQUIPMENT TECHNICIAN 05/09 CPT-40987 LS spine comp w obliques - XRAY USE ONLY 14:52:26 ELECTROMEDICAL EQUIPMENT TECHNICIAN CPT-00534 Chest, 2 views 12:55:58 ELECTROMEDICAL EQUIPMENT TECHNICIAN CPT-G0439 [facility] Annual Wellness Exam 10:34:52 ELECTROMEDICAL EQUIPMENT TECHNICIAN CPT-97160 BMP - LAB USE ONLY 17:19:11 ELECTROMEDICAL EQUIPMENT TECHNICIAN CPT-23114 PT/INR - LAB USE ONLY 17:19:10 ELECTROMEDICAL EQUIPMENT TECHNICIAN CPT-79194 Venipuncture Draw Fee 17:19:10 ELECTROMEDICAL EQUIPMENT TECHNICIAN CPT-75053 PT/INR - LAB USE ONLY 08:12:25 ELECTROMEDICAL EQUIPMENT TECHNICIAN CPT-29600 Venipuncture Draw Fee 08:12:24 ELECTROMEDICAL EQUIPMENT TECHNICIAN CPT-10324 Venipuncture Draw Fee 11:31:07 ELECTROMEDICAL EQUIPMENT TECHNICIAN CPT-94573 TPSA - LAB USE ONLY 11:31:07 ELECTROMEDICAL EQUIPMENT TECHNICIAN CPT-21715 PT/INR - LAB USE ONLY 11:31:07 ELECTROMEDICAL EQUIPMENT TECHNICIAN CPT-G0439 Subsequent Annual Wellness Exam 09:59:29 ELECTROMEDICAL EQUIPMENT TECHNICIAN CPT-71504 Creatinine - LAB USE ONLY 14:37:55 ELECTROMEDICAL EQUIPMENT TECHNICIAN CPT-02602 PT/INR - LAB USE ONLY 14:37:55 ELECTROMEDICAL EQUIPMENT TECHNICIAN CPT-62338 Venipuncture Draw Fee 14:37:55 ELECTROMEDICAL EQUIPMENT TECHNICIAN CPT-21286 LS spine comp w obliques - XRAY USE ONLY 12:59:25 [facility] CPT-61582 PT/INR - LAB USE ONLY 13:49:20 CDT CPT-47173 Venipuncture Draw Fee 13:49:19 CDT CPT-98056 PT/INR - LAB USE ONLY 15:48:49 CDT CPT-36164 Venipuncture Draw Fee 15:48:49 CDT CPT-28383 Venipuncture Draw Fee 11:31:59 CDT CPT-15538 PT/INR - LAB USE ONLY 11:31:59 CDT CPT-34336 Venipuncture Draw Fee 13:29:15 CDT CPT-93650 Thoracolumbar AP/Lat 15:19:19 [facility] CPT-G0438 Initial Annual Wellness Exam 12:18:54 ELECTROMEDICAL EQUIPMENT TECHNICIAN CPT-95621 Knee 3V 09:57:38 CDT CPT-OV Office Visit 15:45:01 ELECTROMEDICAL EQUIPMENT TECHNICIAN CPT-04470 Abd compl w upright 17:10:25 CDT
--- OUTSIDE RECORDS SUMMARY | 2018-07-18 10:26 | XMS REPORT | Clinical Summary ---
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 Piotr Dalye DO Personal history of malignant neoplasm of [...] neoplasm of prostate V10.46 Active Alina Meyers RACE RELATIONS PROFESSOR Personal history of malignant neoplasm of prostate Coronary artery disease 414.00 Active Alina Meyers APRN Coronary atherosclerosis of unspecified type of vessel, [place] or graft Back pain, thoracic region, left [...] po q hs for nerve pain GABAPENTIN 32701631079 Active Piotr Daley DO Active WARFARIN SODIUM 5 MG TABS 1 tablet daily WARFARIN SODIUM 96146274353 Active Simi Meyers Active TRAMADOL HCL 50 MG TABS 1 po tid with ES Tylenol TRAMADOL HCL 91627653445 Active Piotr Daley DO Active PREDNISONE 20 MG TAB 2 tablets today, then 1 tablet days 2 through 4 PREDNISONE 13417034014 No Longer Active Piotr Daley DO Active AZITHROMYCIN 250 MG TABS 2 po qd x 1 day, then 1 po qd x 4 days AZITHROMYCIN 78064890418 No Longer Active Piotr Daley DO Active IBUPROFEN 800 MG TABS 1 tab every 8 hours as needed IBUPROFEN 02252678680 No Longer Active Piotr Daley DO Active LOMOTIL 2.5-0.025 MG TAB 1 to 2 four times a day as needed for diarrhea 10/13 DIPHENOXYLATE-ATROPINE 58463787655 No Longer Active Piotr Daely DO Active WARFARIN SODIUM 4 MG TABS 1 tab every evening WARFARIN SODIUM 87954323948 No Longer Active Piotr Daley DO Active PREDNISONE 20 MG TAB 1 tablet twice daily for 2 days, then 1 tablet once daily for 2 days PREDNISONE 33396073104 No Longer Active Piotr Daley DO Active PROMETHAZINE HCL 25 MG TABS 1 four times a day as needed for nausea/vomiting PROMETHAZINE HCL 09252923409 No Longer Active Piotr Daley DO Active TUSSIONEX PENNKINETIC ER 10-8 MG/5ML LQCR 5ml po q12hr PRN Cough HYDROCOD POLST-CHLORPHEN POLST 72496021641 No Longer Active Piotr Daley DO Active AZITHROMYCIN 250 MG TABS 2 po qd x 1 day, then 1 po qd x 4 days AZITHROMYCIN 62574725745 No Longer Active Piotr Daley DO Active AZITHROMYCIN 250 MG TABS 2 po qd x 1 day, then 1 po qd x 4 days AZITHROMYCIN 70199619987 No Longer Active Piotr Daley DO Active LISINOPRIL-HYDROCHLOROTHIAZIDE 10-12.5 MG TABS 1 tab by mouth daily LISINOPRIL-HYDROCHLOROTHIAZIDE 50439277852 Active Simi Meyers Active LISINOPRIL 10 MG TABS 1/2-1 tab po every other day LISINOPRIL 71788216779 No Longer Active Piotr Daley DO Active VENTOLIN HFA 108 (90 BASE) MCG/ACT AERS 2 puffs four times a day PRN cough ALBUTEROL SULFATE 47091045942 No Longer Active Piotr Daley DO Active NYSTATIN-TRIAMCINOLONE 088607-3.1 UNIT/GM-% CREA Apply to area BID NYSTATIN-TRIAMCINOLONE 83054053241 No Longer Active Alena Chavira PROJ MGR Active PHISOHEX 3 % LIQD Use Directed HEXACHLOROPHENE 64045772357 No Longer Active Sandra [place] Active AZITHROMYCIN 250 MG TABS 2 po qd x 1 day, then 1 po qd x 4 days AZITHROMYCIN 97597379718 No Longer Active Katrina Rinaldi MD PhD Active AZITHROMYCIN 250 MG TABS 2 po qd x 1 day, then 1 po qd x 4 days AZITHROMYCIN 69330734955 No Longer Active Piotr Daley DO Active AZITHROMYCIN 500 MG SOLR 1 po q day AZITHROMYCIN 05328935252 No Longer Active Piotr Daley DO Active NYSTATIN-TRIAMCINOLONE 577844-5.1 UNIT/GM-% CREA apply bid 08/19 NYSTATIN-TRIAMCINOLONE 15224204247 No Longer Active Piotr Daley DO Active IBUPROFEN 800 MG TABS 1 po q 8 hours prn pain sparinly IBUPROFEN 19079653996 No Longer Active Piotr Daley DO Active VITAMIN D3 5000 UNIT CAPS 1 po daily CHOLECALCIFEROL 73223823201 Active Piotr Daley DO Active IBUPROFEN 800 MG TABS 1 po q 8 hours prn pain sparinly IBUPROFEN 800 MG TABS 327013 IBUPROFEN Inactive NYSTATIN-TRIAMCINOLONE 720771-6.1 UNIT/GM-% CREA apply bid 08/19 NYSTATIN-TRIAMCINOLONE 038884-6.1 UNIT/GM-% CREA 7336571 NYSTATIN- TRIAMCINOLONE Inactive AZITHROMYCIN 500 MG SOLR 1 po q day AZITHROMYCIN 500 MG SOLR 76275818327 AZITHROMYCIN Inactive VENTOLIN HFA 108 (90 BASE) MCG/ACT AERS 2 puffs four times a day PRN cough VENTOLIN HFA 108 (90 BASE) MCG/ACT AERS ALBUTEROL SULFATE Inactive LISINOPRIL 10 MG TABS 1/2-1 tab po every other day LISINOPRIL 10 MG TABS 377289 LISINOPRIL Inactive TUSSIONEX PENNKINETIC ER 10-8 MG/5ML LQCR 5ml po q12hr PRN Cough TUSSIONEX PENNKINETIC ER 10-8 MG/5ML LQCR HYDROCOD POLST- CHLORPHEN POLST Inactive PROMETHAZINE HCL 25 MG TABS 1 four times a day as needed for nausea/vomiting PROMETHAZINE HCL 25 MG TABS 245748 PROMETHAZINE HCL Inactive PREDNISONE 20 MG TAB 1 tablet twice daily for 2 days, then 1 tablet once daily for 2 days PREDNISONE 20 MG TAB 284952 PREDNISONE Inactive WARFARIN SODIUM 4 MG TABS 1 tab every evening WARFARIN SODIUM 4 MG TABS 418227 WARFARIN SODIUM Inactive LOMOTIL 2.5-0.025 MG TAB 1 to 2 four times a day as needed for diarrhea 10/13 LOMOTIL 2.5-0.025 MG TAB 2393672 DIPHENOXYLATE-ATROPINE Inactive IBUPROFEN 800 MG TABS 1 tab every 8 hours as needed IBUPROFEN 800 MG TABS 696254 IBUPROFEN Inactive PREDNISONE 20 MG TAB 2 tablets today, then 1 tablet days 2 through 4 PREDNISONE 20 MG TAB 523969 PREDNISONE Inactive AZITHROMYCIN 250 MG TABS 2 po qd x 1 day, then 1 po qd x 4 days AZITHROMYCIN 250 MG TABS 6097146 AZITHROMYCIN Inactive AZITHROMYCIN 250 MG TABS 2 po qd x 1 day, then 1 po qd x 4 days AZITHROMYCIN 250 MG TABS 5136839 AZITHROMYCIN Inactive NYSTATIN-TRIAMCINOLONE 991173-3.1 UNIT/GM-% CREA Apply to area BID NYSTATIN-TRIAMCINOLONE 846371-4.1 UNIT/GM-% CREA 6616272 NYSTATIN-TRIAMCINOLONE Inactive AZITHROMYCIN 250 MG TABS 2 po qd x 1 day, then 1 po qd x 4 days AZITHROMYCIN 250 MG TABS 2339020 AZITHROMYCIN Inactive AZITHROMYCIN 250 MG TABS 2 po qd x 1 day, then 1 po qd x 4 days AZITHROMYCIN 250 MG TABS 7704163 AZITHROMYCIN Inactive AZITHROMYCIN 250 MG TABS 2 po qd x 1 day, then 1 po qd x 4 days AZITHROMYCIN 250 MG TABS 3051662 AZITHROMYCIN Inactive Advance Directives Directive Description Start [...] Panel - Chemistry sodium, serum 141 mmol/L 273-044 5602/01/24 potassium, serum 4.3 mmol/L 3.5-5.2 chloride, serum [...] Panel - Chemistry sodium, serum 141 mmol/L 200-522 9662/06/28 carbon dioxide, venous blood 31.0 mmol/L 21.0-32.0 [...] 1.0-3.5 Encounters Code Encounter Date Provider Facility CPT-32082 Level 4 Est. Patient 17:15:07 CREDIT CLERK Piotr Daley [facility] CPT-09457 Level 3 Est. Patient 12:46:13 CREDIT CLERK Piotr Daley [facility] CPT-15961 Level 3 Est. Patient 15:14:31 CREDIT CLERK Piotr Daley [facility] CPT-21582 Level 3 Est. Patient 09:20:13 CREDIT CLERK Piotr Daley [facility] CPT-80681 Level 3 Est. Patient 09:49:40 CDT Piotr Daley [facility] CPT-36000 Level 3 Est. Patient 16:28:11 CDT Piotr Daley [facility] CPT-23332 Level 3 Est. Patient 12:41:58 CREDIT CLERK Piotr Daley [facility] CPT-72692 Level 3 Est. Patient 09:21:24 CDT Piotr Daley [facility] CPT-46502 Level 3 Est. Patient 09:21:11 CDT Piotr Wilson [facility] CPT-75526 Level 3 Est. Patient 11:16:29 CREDIT CLERK Piotr Daley [facility] CPT-37134 Level 3 Est. Patient 18:40:19 CREDIT CLERK Piotr Daley [facility] CPT-91687 Level 3 Est. Patient 19:30:50 CDT Piotr Daley [facility] CPT-78927 Level 3 Est. Patient 22:06:44 CDT Katrina Rinaldi MD PhD [facility] CPT-40228 Level 3 Est. Patient 14:20:00 CDT Piotr Daley [facility] CPT-72178 Level 3 Est. Patient 14:15:22 CREDIT CLERK Piotr Daley [facility] CPT-95684 Level 3 Est. Patient 20:19:57 CREDIT CLERK Piotr Daley [facility] CPT-80796 Level 3 Est. Patient 16:44:32 CDT Piotr Daley [facility] CPT-62225 Level 3 Est. Patient 08:48:46 CREDIT CLERK Piotr Daley [facility] CPT-09225 Level 3 Est. Patient 21:01:21 CDT Piotr Daley [facility] Procedures Code Procedure Name Date Entry Date Standard Description CPT-03078 PT/INR - LAB USE ONLY 08:12:25 CREDIT CLERK CPT-94829 Venipuncture Draw Fee 08:12:24 CREDIT CLERK CPT-57735 Venipuncture Draw Fee 11:31:07 CREDIT CLERK CPT-56268 TPSA - LAB USE ONLY 11:31:07 CREDIT CLERK CPT-44125 PT/INR - LAB USE ONLY 11:31:07 CREDIT CLERK CPT-G0439 [facility] Annual Wellness Exam 09:59:29 CREDIT CLERK CPT-57990 Creatinine - LAB USE ONLY 14:37:55 CREDIT CLERK CPT-37820 PT/INR - LAB USE ONLY 14:37:55 CREDIT CLERK CPT-61620 Venipuncture Draw Fee 14:37:55 CREDIT CLERK CPT-21334 LS spine comp w obliques - XRAY USE ONLY 12:59:25 CREDIT CLERK CPT-34588 PT/INR - LAB USE ONLY 13:49:20 CDT CPT-09270 Venipuncture Draw Fee 13:49:19 CDT CPT-05527 PT/INR - LAB USE ONLY 15:48:49 CDT CPT-86350 Venipuncture Draw Fee 15:48:49 CDT CPT-69101 Venipuncture Draw Fee 11:31:59 CDT CPT-77050 PT/INR - LAB USE ONLY 11:31:59 CDT CPT-61341 Venipuncture Draw Fee 13:29:15 CDT CPT-42104 Thoracolumbar AP/Lat 15:19:19 CREDIT CLERK CPT-G0438 Initial Annual Wellness Exam 12:18:54 CREDIT CLERK CPT-88929 Knee 3V 09:57:38 CDT CPT-OV Office Visit 15:45:01 CREDIT CLERK CPT-41845 Abd compl w upright 17:10:25 CDT
--- OUTSIDE RECORDS SUMMARY | 2018-07-18 10:27 | XMS REPORT | Clinical Summary ---
Author Author Admin, YONG Organization [facility] Address Unknown Phone Unavailable Allergies, [...] bronchitis Knee pain, left 719.46 Active Piotr Daley DO Pain in joint involving lower leg HEALTH MAINTENANCE EXAM ICD-V70.0 Inactive Katrina Rinaldi [...] 1 tablet days 2 through 4 PREDNISONE 26039003738 No Longer Active Piotr Daley DO Active AZITHROMYCIN 250 MG TABS 2 po qd x 1 day, then 1 po qd x 4 days AZITHROMYCIN 26802500948 No Longer Active Piotr Daley DO Active IBUPROFEN 800 MG TABS 1 tab every 8 hours as needed IBUPROFEN 36967534738 No Longer Active Piotr Daley DO Active LOMOTIL 2.5-0.025 MG TAB 1 to 2 four times a day as needed for diarrhea 10/13 DIPHENOXYLATE-ATROPINE 78678273406 No Longer Active Piotr Daley DO Active WARFARIN SODIUM 5 MG TABS 1 tablet daily except for Saturday and 04/09 tablet. WARFARIN SODIUM 59051113821 Active Piotr Daley DO Active WARFARIN SODIUM 4 MG TABS 1 tab every evening WARFARIN SODIUM 16192730168 No Longer Active Piotr Daley DO Active PREDNISONE 20 MG TAB 1 tablet twice daily for 2 days, then 1 tablet once daily for 2 days PREDNISONE 21297455378 No Longer Active Piotr Daley DO Active PROMETHAZINE HCL 25 MG TABS 1 four times a day as needed for nausea/vomiting PROMETHAZINE HCL 68165959596 No Longer Active Piotr Daley DO Active TUSSIONEX PENNKINETIC ER 10-8 MG/5ML LQCR 5ml po q12hr PRN Cough HYDROCOD POLST-CHLORPHEN POLST 87134338800 No Longer Active Piotr Daley DO Active AZITHROMYCIN 250 MG TABS 2 po qd x 1 day, then 1 po qd x 4 days AZITHROMYCIN 57717446445 No Longer Active Piotr Daley DO Active AZITHROMYCIN 250 MG TABS 2 po qd x 1 day, then 1 po qd x 4 days AZITHROMYCIN 75333076205 No Longer Active Piotr Daley DO Active LISINOPRIL-HYDROCHLOROTHIAZIDE 10-12.5 MG TABS 1 tab by mouth daily LISINOPRIL-HYDROCHLOROTHIAZIDE 57101615210 Active Piotr Daley DO Active LISINOPRIL 10 MG TABS 1/2-1 tab po every other day LISINOPRIL 42785384805 No Longer Active Piotr Daley DO Active VENTOLIN HFA 108 (90 BASE) MCG/ACT AERS 2 puffs four times a day PRN cough ALBUTEROL SULFATE 64150547266 No Longer Active Piotr Daley DO Active NYSTATIN-TRIAMCINOLONE 231349-3.1 UNIT/GM-% CREA Apply to area BID NYSTATIN-TRIAMCINOLONE 88455351488 No Longer Active Alena Chavira CAPTION WRITER Active PHISOHEX 3 % LIQD Use Directed HEXACHLOROPHENE 70241266624 No Longer Active Sandra [place] Active AZITHROMYCIN 250 MG TABS 2 po qd x 1 day, then 1 po qd x 4 days AZITHROMYCIN 41258914362 No Longer Active Katrina Rinaldi MD PhD Active AZITHROMYCIN 250 MG TABS 2 po qd x 1 day, then 1 po qd x 4 days AZITHROMYCIN 99538976278 No Longer Active Piotr Daley DO Active AZITHROMYCIN 500 MG SOLR 1 po q day AZITHROMYCIN 03542514320 No Longer Active Piotr Daley DO Active NYSTATIN-TRIAMCINOLONE 037726-8.1 UNIT/GM-% CREA apply bid 08/19 NYSTATIN-TRIAMCINOLONE 42342081145 No Longer Active Piotr Daley DO Active IBUPROFEN 800 MG TABS 1 po q 8 hours prn pain sparinly IBUPROFEN 46974975212 No Longer Active Piotr Daley DO Active VITAMIN D3 5000 UNIT CAPS 1 po daily CHOLECALCIFEROL 89638260296 Active Piotr Daley DO Active IBUPROFEN 800 MG TABS 1 po q 8 hours prn pain sparinly IBUPROFEN 800 MG TABS 291284 IBUPROFEN Inactive NYSTATIN-TRIAMCINOLONE 468685-9.1 UNIT/GM-% CREA apply bid 08/19 NYSTATIN-TRIAMCINOLONE 795881-4.1 UNIT/GM-% CREA 4067744 NYSTATIN- TRIAMCINOLONE Inactive AZITHROMYCIN 500 MG SOLR 1 po q day AZITHROMYCIN 500 MG SOLR 761985 AZITHROMYCIN Inactive VENTOLIN HFA 108 (90 BASE) MCG/ACT AERS 2 puffs four times a day PRN cough VENTOLIN HFA 108 (90 BASE) MCG/ACT AERS ALBUTEROL SULFATE Inactive LISINOPRIL 10 MG TABS 1/2-1 tab po every other day LISINOPRIL 10 MG TABS 845142 LISINOPRIL Inactive TUSSIONEX PENNKINETIC ER 10-8 MG/5ML LQCR 5ml po q12hr PRN Cough TUSSIONEX PENNKINETIC ER 10-8 MG/5ML LQCR HYDROCOD POLST- CHLORPHEN POLST Inactive PROMETHAZINE HCL 25 MG TABS 1 four times a day as needed for nausea/vomiting PROMETHAZINE HCL 25 MG TABS 740236 PROMETHAZINE HCL Inactive PREDNISONE 20 MG TAB 1 tablet twice daily for 2 days, then 1 tablet once daily for 2 days PREDNISONE 20 MG TAB 717027 PREDNISONE Inactive WARFARIN SODIUM 4 MG TABS 1 tab every evening WARFARIN SODIUM 4 MG TABS 483185 WARFARIN SODIUM Inactive LOMOTIL 2.5-0.025 MG TAB 1 to 2 four times a day as needed for diarrhea 10/13 LOMOTIL 2.5-0.025 MG TAB 3904429 DIPHENOXYLATE-ATROPINE Inactive IBUPROFEN 800 MG TABS 1 tab every 8 hours as needed IBUPROFEN 800 MG TABS 864921 IBUPROFEN Inactive PREDNISONE 20 MG TAB 2 tablets today, then 1 tablet days 2 through 4 PREDNISONE 20 MG TAB 060743 PREDNISONE Inactive AZITHROMYCIN 250 MG TABS 2 po qd x 1 day, then 1 po qd x 4 days AZITHROMYCIN 250 MG TABS 9295292 AZITHROMYCIN Inactive AZITHROMYCIN 250 MG TABS 2 po qd x 1 day, then 1 po qd x 4 days AZITHROMYCIN 250 MG TABS 4823801 AZITHROMYCIN Inactive NYSTATIN-TRIAMCINOLONE 201428-4.1 UNIT/GM-% CREA Apply to area BID NYSTATIN-TRIAMCINOLONE 042470-4.1 UNIT/GM-% CREA 4464646 NYSTATIN-TRIAMCINOLONE Inactive AZITHROMYCIN 250 MG TABS 2 po qd x 1 day, then 1 po qd x 4 days AZITHROMYCIN 250 MG TABS 3673583 AZITHROMYCIN Inactive AZITHROMYCIN 250 MG TABS 2 po qd x 1 day, then 1 po qd x 4 days AZITHROMYCIN 250 MG TABS 7749484 AZITHROMYCIN Inactive AZITHROMYCIN 250 MG TABS 2 po qd x 1 day, then 1 po qd x 4 days AZITHROMYCIN 250 MG TABS 6246302 AZITHROMYCIN Inactive Vital Signs Date Name Value [...] (INR) 2.1 1.0-3.5 international normalized ratio (INR) 2.8 1.0-3.5 prothrombin time (patient) 19.5 SECS s 11.1-13.4 international normalized ratio (INR) 2.5 1.0-3.5 prothrombin time (patient) 17.7 SECS s 11.1-13.4 international normalized ratio (INR) 2.0 1.0-3.5 prothrombin time (patient) 23.4 SECS s 11.1-13.4 international normalized ratio (INR) 3.5 1.0-3.5 prothrombin time (patient) 21.0 SECS s 11.1-13.4 international normalized ratio (INR) 1.6 1.0-3.5 prothrombin time (patient) 15.4 SECS s 11.1-13.4 prothrombin time (patient) 19.3 SECS s 11.1-13.4 international normalized ratio (INR) 2.4 1.0-3.5 international normalized ratio (INR) 1.7 1.0-3.5 prothrombin time (patient) 16.0 SECS s 11.1-13.4 international normalized ratio (INR) 1.4 1.0-3.5 prothrombin time (patient) 14.5 SECS s 11.1-13.4 Lab Report: Prothrombin Time, Basic Metabolic Panel, CBC, Prostatic Spec ... - Chemistry sodium, serum 142 mmol/L 802-080 2040/12/01 potassium, serum 4.7 mmol/L 3.5-5.2 chloride, serum [...] 142-424 Encounters Code Encounter Date Provider Facility CPT-12814 Level 3 Est. Patient 09:49:40 CDT Piotr Daley [facility] CPT-01347 Level 3 Est. Patient 16:28:11 CDT Piotr Daley [facility] CPT-38437 Level 3 Est. Patient 12:41:58 NURSING CARE PARTNER Piotr Daley [facility] CPT-96170 Level 3 Est. Patient 09:21:24 CDT Piotr Daley [facility] CPT-25553 Level 3 Est. Patient 09:21:11 CDT Piotr Wilson [facility] CPT-73817 Level 3 Est. Patient 11:16:29 NURSING CARE PARTNER Piotr Daley [facility] CPT-12041 Level 3 Est. Patient 18:40:19 NURSING CARE PARTNER Piotr Daley [facility] CPT-98192 Level 3 Est. Patient 19:30:50 CDT Piotr Daley [facility] CPT-92961 Level 3 Est. Patient 22:06:44 CDT Katrina Rinaldi MD PhD [facility] CPT-40626 Level 3 Est. Patient 14:20:00 CDT Piotr Daley [facility] CPT-33628 Level 3 Est. Patient 14:15:22 NURSING CARE PARTNER Piotr Daley [facility] CPT-79319 Level 3 Est. Patient 20:19:57 NURSING CARE PARTNER Piotr Daley [facility] CPT-52326 Level 3 Est. Patient 16:44:32 CDT Piotr Katie [facility] CPT-35177 Level 3 Est. Patient 08:48:46 NURSING CARE PARTNER Piotr Daley [facility] CPT-70646 Level 3 Est. Patient 21:01:21 CDT Piotr Katie [facility] Procedures Code Procedure Name Date Entry Date Standard Description CPT-90260 Knee 3V 09:57:38 CDT CPT-OV Office Visit 15:45:01 NURSING CARE PARTNER CPT-00357 Abd compl w upright 17:10:25 CDT
--- OUTSIDE RECORDS SUMMARY | 2018-07-18 10:28 | XMS REPORT | Clinical Summary ---
Author Author Admin, E Organization [employer] Address Unknown Phone Unavailable Allergies, Adverse [...] of cerebral infarction HYPERTENSION 401.9 Active Piotr Dlaey DO Unspecified essential hypertension FLANK PAIN, RIGHT [...] neoplasm of prostate V10.46 Active Alina Meyers DATA SUPPORT ANALYST Personal history of malignant neoplasm of prostate Coronary artery disease 414.00 Active Alina Luigi DATA SUPPORT ANALYST Coronary atherosclerosis of unspecified type of vessel, marshall or graft Back pain, thoracic region, left [...] po tid with ES Tylenol TRAMADOL HCL 31851367867 Active Piotr Daley DO Active WARFARIN SODIUM 5 MG TABS 1 tablet daily except for Saturday and Sat 1/ tablet. WARFARIN SODIUM 15051594180 Active Piotr Daley DO Active PREDNISONE 20 MG TAB 2 tablets today, then 1 tablet days 2 through 4 PREDNISONE 68093194393 No Longer Active Piotr Daley DO Active AZITHROMYCIN 250 MG TABS 2 po qd x 1 day, then 1 po qd x 4 days AZITHROMYCIN 38357074092 No Longer Active Piotr Daley DO Active IBUPROFEN 800 MG TABS 1 tab every 8 hours as needed IBUPROFEN 46001851260 No Longer Active Piotr Daley DO Active LOMOTIL 2.5-0.025 MG TAB 1 to 2 four times a day as needed for diarrhea 10/13 DIPHENOXYLATE-ATROPINE 49368177979 No Longer Active Piotr Daley DO Active WARFARIN SODIUM 4 MG TABS 1 tab every evening WARFARIN SODIUM 75180853857 No Longer Active Piotr Daley DO Active PREDNISONE 20 MG TAB 1 tablet twice daily for 2 days, then 1 tablet once daily for 2 days PREDNISONE 43468500102 No Longer Active Piotr Daley DO Active PROMETHAZINE HCL 25 MG TABS 1 four times a day as needed for nausea/vomiting PROMETHAZINE HCL 67233643222 No Longer Active Piotr Daley DO Active TUSSIONEX PENNKINETIC ER 10-8 MG/5ML LQCR 5ml po q12hr PRN Cough HYDROCOD POLST-CHLORPHEN POLST 46198185036 No Longer Active Piotr W Edi DO Active AZITHROMYCIN 250 MG TABS 2 po qd x 1 day, then 1 po qd x 4 days AZITHROMYCIN 90695996401 No Longer Active Piotr Daley DO Active AZITHROMYCIN 250 MG TABS 2 po qd x 1 day, then 1 po qd x 4 days AZITHROMYCIN 60952678442 No Longer Active Piotr Daley DO Active LISINOPRIL-HYDROCHLOROTHIAZIDE 10-12.5 MG TABS 1 tab by mouth daily LISINOPRIL-HYDROCHLOROTHIAZIDE 14426321306 Active Hilary Ma MA Active LISINOPRIL 10 MG TABS 1/2-1 tab po every other day LISINOPRIL 61373276845 No Longer Active Piotr Daley DO Active VENTOLIN HFA 108 (90 BASE) MCG/ACT AERS 2 puffs four times a day PRN cough ALBUTEROL SULFATE 53908404683 No Longer Active Piotr Daley DO Active NYSTATIN-TRIAMCINOLONE 310200-9.1 UNIT/GM-% CREA Apply to area BID NYSTATIN-TRIAMCINOLONE 54821238912 No Longer Active Alena Chavira GERIATRICIAN Active PHISOHEX 3 % LIQD Use Directed HEXACHLOROPHENE 60754493933 No Longer Active Sandra [place] Active AZITHROMYCIN 250 MG TABS 2 po qd x 1 day, then 1 po qd x 4 days AZITHROMYCIN 34052430603 No Longer Active Katrina Rinaldi MD PhD Active AZITHROMYCIN 250 MG TABS 2 po qd x 1 day, then 1 po qd x 4 days AZITHROMYCIN 44008787161 No Longer Active Piotr Daley DO Active AZITHROMYCIN 500 MG SOLR 1 po q day AZITHROMYCIN 59359431605 No Longer Active Piotr Daley DO Active NYSTATIN-TRIAMCINOLONE 950182-3.1 UNIT/GM-% CREA apply bid 08/19 NYSTATIN-TRIAMCINOLONE 44491396491 No Longer Active Piotr Daley DO Active IBUPROFEN 800 MG TABS 1 po q 8 hours prn pain sparinly IBUPROFEN 75251841850 No Longer Active Piotr Daley DO Active VITAMIN D3 5000 UNIT CAPS 1 po daily CHOLECALCIFEROL 71856590133 Active Piotr Daley DO Active IBUPROFEN 800 MG TABS 1 po q 8 hours prn pain sparinly IBUPROFEN 800 MG TABS 215383 IBUPROFEN Inactive NYSTATIN-TRIAMCINOLONE 085809-9.1 UNIT/GM-% CREA apply bid 08/19 NYSTATIN-TRIAMCINOLONE 328635-8.1 UNIT/GM-% CREA 2880712 NYSTATIN- TRIAMCINOLONE Inactive AZITHROMYCIN 500 MG SOLR 1 po q day AZITHROMYCIN 500 MG SOLR 72986179622 AZITHROMYCIN Inactive VENTOLIN HFA 108 (90 BASE) MCG/ACT AERS 2 puffs four times a day PRN cough VENTOLIN HFA 108 (90 BASE) MCG/ACT AERS ALBUTEROL SULFATE Inactive LISINOPRIL 10 MG TABS 1/2-1 tab po every other day LISINOPRIL 10 MG TABS 144085 LISINOPRIL Inactive TUSSIONEX PENNKINETIC ER 10-8 MG/5ML LQCR 5ml po q12hr PRN Cough TUSSIONEX PENNKINETIC ER 10-8 MG/5ML LQCR HYDROCOD POLST- CHLORPHEN POLST Inactive PROMETHAZINE HCL 25 MG TABS 1 four times a day as needed for nausea/vomiting PROMETHAZINE HCL 25 MG TABS 481527 PROMETHAZINE HCL Inactive PREDNISONE 20 MG TAB 1 tablet twice daily for 2 days, then 1 tablet once daily for 2 days PREDNISONE 20 MG TAB 330261 PREDNISONE Inactive WARFARIN SODIUM 4 MG TABS 1 tab every evening WARFARIN SODIUM 4 MG TABS 765415 WARFARIN SODIUM Inactive LOMOTIL 2.5-0.025 MG TAB 1 to 2 four times a day as needed for diarrhea 10/13 LOMOTIL 2.5-0.025 MG TAB 9167698 DIPHENOXYLATE-ATROPINE Inactive IBUPROFEN 800 MG TABS 1 tab every 8 hours as needed IBUPROFEN 800 MG TABS 209298 IBUPROFEN Inactive PREDNISONE 20 MG TAB 2 tablets today, then 1 tablet days 2 through 4 PREDNISONE 20 MG TAB 790238 PREDNISONE Inactive AZITHROMYCIN 250 MG TABS 2 po qd x 1 day, then 1 po qd x 4 days AZITHROMYCIN 250 MG TABS 5481816 AZITHROMYCIN Inactive AZITHROMYCIN 250 MG TABS 2 po qd x 1 day, then 1 po qd x 4 days AZITHROMYCIN 250 MG TABS 6235199 AZITHROMYCIN Inactive NYSTATIN-TRIAMCINOLONE 838822-1.1 UNIT/GM-% CREA Apply to area BID NYSTATIN-TRIAMCINOLONE 677204-5.1 UNIT/GM-% CREA 2233658 NYSTATIN-TRIAMCINOLONE Inactive AZITHROMYCIN 250 MG TABS 2 po qd x 1 day, then 1 po qd x 4 days AZITHROMYCIN 250 MG TABS 2614139 AZITHROMYCIN Inactive AZITHROMYCIN 250 MG TABS 2 po qd x 1 day, then 1 po qd x 4 days AZITHROMYCIN 250 MG TABS 3277362 AZITHROMYCIN Inactive AZITHROMYCIN 250 MG TABS 2 po qd x 1 day, then 1 po qd x 4 days AZITHROMYCIN 250 MG TABS 7831198 AZITHROMYCIN Inactive Advance Directives Directive Description Start [...] (INR) 2.1 Lab Report: CBC - Hematology erythrocyte (RBC) count 5.20 10^6/MM^3 10*6/mm3 4.69-6.13 hematocrit, blood 43.6 % 41.0-53.0 mean corpuscular volume, RBC 84 fL 80-97 mean corpuscular hemoglobin, RBC 28.4 pg 27.0-31.2 mean corpuscular hemoglobin concentration, RBC 33.9 G/DL % 31.8- 35.4 red blood cell distribution width 15.0 % 11.6-14.8 platelet count 210 10^3/MM^3 10*3/mm3 628-193 0812/02/09 hemoglobin, blood 14.8 g/dL 13.5-17.5 leukocyte count, blood 5.2 10^3/MM^3 10*3/mm3 4.6-10.2 Lab Report: MICROALBUMIN, Comp. Metabolic Panel, CBC [...] 4.2 mmol/L 3.5-5.2 sodium, serum 140 mmol/L 856-408 4923/07/17 albumin/creatinine ratio, urine < 30 mg/g mg/g{creat} [...] Prothrombin Time - Coagulation prothrombin time (patient) 19.9 SECS s 11.1-13.4 [...] ratio (INR) 2.1 1.0-3.5 prothrombin time (patient) 16.6 SECS s 11.1-13.4 international normalized ratio (INR) 1.9 1.0-3.5 prothrombin time (patient) 18.3 SECS s 11.1-13.4 international normalized ratio (INR) 2.3 1.0-3.5 prothrombin time (patient) 18.9 SECS s [...] Negative Encounters Code Encounter Date Provider Facility CPT-23940 Level 3 Est. Patient 15:14:31 DENSITY CONTROL PUNCHER Piotr Daley [facility] CPT-99401 Level 3 Est. Patient 09:20:13 DENSITY CONTROL PUNCHER Piotr Daley [facility] CPT-73743 Level 3 Est. Patient 09:49:40 CDT Piotr Wilson [facility] CPT-29874 Level 3 Est. Patient 16:28:11 CDT Piotr Daley [facility] CPT-79993 Level 3 Est. Patient 12:41:58 DENSITY CONTROL PUNCHER Piotr Daley [facility] CPT-41727 Level 3 Est. Patient 09:21:24 CDT Piotr Daley [facility] CPT-42432 Level 3 Est. Patient 09:21:11 CDT Piotr Daley [facility] CPT-83794 Level 3 Est. Patient 11:16:29 DENSITY CONTROL PUNCHER Piotr Daley [facility] CPT-77620 Level 3 Est. Patient 18:40:19 DENSITY CONTROL PUNCHER Piotr Daley [facility] CPT-12468 Level 3 Est. Patient 19:30:50 CDT Piotr Daley [facility] CPT-00978 Level 3 Est. Patient 22:06:44 CDT Katrina Rinaldi MD PhD [facility] CPT-37331 Level 3 Est. Patient 14:20:00 CDT Piotr Daley [facility] CPT-20523 Level 3 Est. Patient 14:15:22 DENSITY CONTROL PUNCHER Piotr Daley [facility] CPT-67244 Level 3 Est. Patient 20:19:57 DENSITY CONTROL PUNCHER Piotr Daley [facility] CPT-49033 Level 3 Est. Patient 16:44:32 CDT Piotr Katie Daley [facility] CPT-20611 Level 3 Est. Patient 08:48:46 DENSITY CONTROL PUNCHER Piotr Wilson [facility] CPT-84962 Level 3 Est. Patient 21:01:21 CDT Piotr Katie Edi [facility] Procedures Code Procedure Name Date Entry Date Standard Description CPT-55934 Thoracolumbar AP/Lat 15:19:19 DENSITY CONTROL PUNCHER CPT-G0438 Initial Annual Wellness Exam 12:18:54 DENSITY CONTROL PUNCHER CPT-61078 Knee 3V 09:57:38 CDT CPT-OV Office Visit 15:45:01 DENSITY CONTROL PUNCHER CPT-04792 Abd compl w upright 17:10:25 CDT
--- OUTSIDE RECORDS SUMMARY | 2018-07-18 10:28 | XMS REPORT | Clinical Summary ---
Author Author Admin, [employer] Address Unknown Phone Unavailable Allergies, Adverse [...] neoplasm of prostate V10.46 Active Alina Meyers SAFETY SPECIALIST Personal history of malignant neoplasm of prostate Coronary artery disease 414.00 Active Alina Meyers APRN Coronary atherosclerosis of unspecified type of vessel, [place] or graft Back pain, thoracic region, left [...] times a day as needed ALBUTEROL SULFATE 47301733190 Active Matthew Rangel MD Active PREDNISONE 20 MG TAB 2 tabs daily for 3 days, 1 tab daily for 3 days, 1/2 tab daily for 2 days PREDNISONE 98097247880 Active Matthew Rangel MD Active TRAMADOL HCL 50 MG TABS 1 po tid with ES Tylenol TRAMADOL HCL 49494841470 No Longer Active Matthew Rangel MD Active GABAPENTIN 300 MG CAPS 1 po q hs for nerve pain GABAPENTIN 04842767922 No Longer Active Matthew Rangel MD Active WARFARIN SODIUM 5 MG TABS 1 tablet daily WARFARIN SODIUM 83112050162 Active Piotr Daley DO Active PREDNISONE 20 MG TAB 2 tablets today, then 1 tablet days 2 through 4 PREDNISONE 84544598798 No Longer Active Piotr Daley DO Active AZITHROMYCIN 250 MG TABS 2 po qd x 1 day, then 1 po qd x 4 days AZITHROMYCIN 51630965863 No Longer Active Piotr Daley DO Active IBUPROFEN 800 MG TABS 1 tab every 8 hours as needed IBUPROFEN 60117024809 No Longer Active Piotr Daley DO Active LOMOTIL 2.5-0.025 MG TAB 1 to 2 four times a day as needed for diarrhea 10/13 DIPHENOXYLATE-ATROPINE 96022438056 No Longer Active Piotr Daley DO Active WARFARIN SODIUM 4 MG TABS 1 tab every evening WARFARIN SODIUM 29007156835 No Longer Active Piotr Daley DO Active PREDNISONE 20 MG TAB 1 tablet twice daily for 2 days, then 1 tablet once daily for 2 days PREDNISONE 46528360671 No Longer Active Piotr Daley DO Active PROMETHAZINE HCL 25 MG TABS 1 four times a day as needed for nausea/vomiting PROMETHAZINE HCL 52548279742 No Longer Active Piotr Daley DO Active TUSSIONEX PENNKINETIC ER 10-8 MG/5ML LQCR 5ml po q12hr PRN Cough HYDROCOD POLST-CHLORPHEN POLST 44963291146 No Longer Active Piotr Daley DO Active AZITHROMYCIN 250 MG TABS 2 po qd x 1 day, then 1 po qd x 4 days AZITHROMYCIN 47800687982 No Longer Active Piotr Daley DO Active AZITHROMYCIN 250 MG TABS 2 po qd x 1 day, then 1 po qd x 4 days AZITHROMYCIN 11187716047 No Longer Active Piotr Daley DO Active LISINOPRIL-HYDROCHLOROTHIAZIDE 10-12.5 MG TABS 1 tab by mouth daily LISINOPRIL-HYDROCHLOROTHIAZIDE 43204502443 Active Simi Meyers Active LISINOPRIL 10 MG TABS 1/2-1 tab po every other day LISINOPRIL 01629770092 No Longer Active Piotr Daley DO Active VENTOLIN HFA 108 (90 BASE) MCG/ACT AERS 2 puffs four times a day PRN cough ALBUTEROL SULFATE 09418472926 No Longer Active Piotr Daley DO Active NYSTATIN-TRIAMCINOLONE 865740-7.1 UNIT/GM-% CREA Apply to area BID NYSTATIN-TRIAMCINOLONE 61442691432 No Longer Active Alena Chavira CONDENSER TUBE TENDER Active PHISOHEX 3 % LIQD Use Directed HEXACHLOROPHENE 10086547873 No Longer Active Sandra Burciagar Active AZITHROMYCIN 250 MG TABS 2 po qd x 1 day, then 1 po qd x 4 days AZITHROMYCIN 15532984786 No Longer Active Katrina Rinaldi MD PhD Active AZITHROMYCIN 250 MG TABS 2 po qd x 1 day, then 1 po qd x 4 days AZITHROMYCIN 85119813561 No Longer Active Piotr Daley DO Active AZITHROMYCIN 500 MG SOLR 1 po q day AZITHROMYCIN 50430808164 No Longer Active Piotr Daley DO Active NYSTATIN-TRIAMCINOLONE 104758-4.1 UNIT/GM-% CREA apply bid 08/19 NYSTATIN-TRIAMCINOLONE 12289070390 No Longer Active Piotr Daley DO Active IBUPROFEN 800 MG TABS 1 po q 8 hours prn pain sparinly IBUPROFEN 83956018533 No Longer Active Piotr Daley DO Active VITAMIN D3 5000 UNIT CAPS 1 po daily CHOLECALCIFEROL 00619817129 Active Piotr Daley DO Active IBUPROFEN 800 MG TABS 1 po q 8 hours prn pain sparinly IBUPROFEN 800 MG TABS 120820 IBUPROFEN Inactive NYSTATIN-TRIAMCINOLONE 047470-2.1 UNIT/GM-% CREA apply bid 08/19 NYSTATIN-TRIAMCINOLONE 572033-1.1 UNIT/GM-% CREA 7714286 NYSTATIN- TRIAMCINOLONE Inactive AZITHROMYCIN 500 MG SOLR 1 po q day AZITHROMYCIN 500 MG SOLR 02347421410 AZITHROMYCIN Inactive VENTOLIN HFA 108 (90 BASE) MCG/ACT AERS 2 puffs four times a day PRN cough VENTOLIN HFA 108 (90 BASE) MCG/ACT AERS ALBUTEROL SULFATE Inactive LISINOPRIL 10 MG TABS 1/2-1 tab po every other day LISINOPRIL 10 MG TABS 015455 LISINOPRIL Inactive TUSSIONEX PENNKINETIC ER 10-8 MG/5ML LQCR 5ml po q12hr PRN Cough TUSSIONEX PENNKINETIC ER 10-8 MG/5ML LQCR HYDROCOD POLST- CHLORPHEN POLST Inactive PROMETHAZINE HCL 25 MG TABS 1 four times a day as needed for nausea/vomiting PROMETHAZINE HCL 25 MG TABS 273281 PROMETHAZINE HCL Inactive PREDNISONE 20 MG TAB 1 tablet twice daily for 2 days, then 1 tablet once daily for 2 days PREDNISONE 20 MG TAB 926859 PREDNISONE Inactive WARFARIN SODIUM 4 MG TABS 1 tab every evening WARFARIN SODIUM 4 MG TABS 442153 WARFARIN SODIUM Inactive LOMOTIL 2.5-0.025 MG TAB 1 to 2 four times a day as needed for diarrhea 10/13 LOMOTIL 2.5-0.025 MG TAB 6811536 DIPHENOXYLATE-ATROPINE Inactive IBUPROFEN 800 MG TABS 1 tab every 8 hours as needed IBUPROFEN 800 MG TABS 188181 IBUPROFEN Inactive PREDNISONE 20 MG TAB 2 tablets today, then 1 tablet days 2 through 4 PREDNISONE 20 MG TAB 860177 PREDNISONE Inactive GABAPENTIN 300 MG CAPS 1 po q hs for nerve pain GABAPENTIN 300 MG CAPS 135926 GABAPENTIN Inactive TRAMADOL HCL 50 MG TABS 1 po tid with ES Tylenol TRAMADOL HCL 50 MG TABS 190739 TRAMADOL HCL Inactive AZITHROMYCIN 250 MG TABS 2 po qd x 1 day, then 1 po qd x 4 days AZITHROMYCIN 250 MG TABS 0282302 AZITHROMYCIN Inactive AZITHROMYCIN 250 MG TABS 2 po qd x 1 day, then 1 po qd x 4 days AZITHROMYCIN 250 MG TABS 0967645 AZITHROMYCIN Inactive NYSTATIN-TRIAMCINOLONE 032852-6.1 UNIT/GM-% CREA Apply to area BID NYSTATIN-TRIAMCINOLONE 827432-0.1 UNIT/GM-% CREA 7281847 NYSTATIN-TRIAMCINOLONE Inactive AZITHROMYCIN 250 MG TABS 2 po qd x 1 day, then 1 po qd x 4 days AZITHROMYCIN 250 MG TABS 8082114 AZITHROMYCIN Inactive AZITHROMYCIN 250 MG TABS 2 po qd x 1 day, then 1 po qd x 4 days AZITHROMYCIN 250 MG TABS 5054317 AZITHROMYCIN Inactive AZITHROMYCIN 250 MG TABS 2 po qd x 1 day, then 1 po qd x 4 days AZITHROMYCIN 250 MG TABS 7922301 AZITHROMYCIN Inactive Advance Directives Directive Description Start [...] Panel - Chemistry sodium, serum 141 mmol/L 156-899 8298/01/24 potassium, serum 4.3 mmol/L 3.5-5.2 chloride, serum 103 mmol/L 98-107 carbon dioxide, venous blood 30.7 mmol/L 21.0-32.0 blood glucose 90 mg/dL 65-110 calcium, serum 8.5 mg/dL 8.5-10.1 urea nitrogen, blood 16 mg/dL 7-18 creatinine, serum 1.09 mg/dL 0.55-1.30 Lab Report: Comp. Metabolic Panel - Chemistry sodium, serum 141 mmol/L 773-705 5597/06/28 carbon dioxide, venous blood 31.0 mmol/L 21.0-32.0 [...] ratio (INR) 2.3 1.0-3.5 prothrombin time (patient) 24.3 SECS s 11.1-13.4 international normalized ratio (INR) 2.2 1.0-3.5 prothrombin time (patient) 18.1 SECS s 11.1-13.4 international normalized ratio (INR) 1.7 1.0-3.5 prothrombin time (patient) 15.4 SECS s 11.1-13.4 prothrombin time (patient) 22.8 [...] 1.0-3.5 Encounters Code Encounter Date Provider Facility CPT-26486 Level 3 Est. Patient 10:48:17 JACK SETTER Matthew Rangel MD [facility] CPT-17164 Level 4 Est. Patient 17:15:07 JACK SETTER Piotr Wilson [facility] CPT-37219 Level 3 Est. Patient 12:46:13 JACK SETTER Piotr Wilson [facility] CPT-95091 Level 3 Est. Patient 15:14:31 JACK SETTER Piotr Daley [facility] CPT-67325 Level 3 Est. Patient 09:20:13 JACK SETTER Piotr Daley [facility] CPT-87505 Level 3 Est. Patient 09:49:40 CDT Piotr Daley [facility] CPT-80461 Level 3 Est. Patient 16:28:11 CDT Piotr Daley [facility] CPT-08935 Level 3 Est. Patient 12:41:58 JACK SETTER Piotr Daley [facility] CPT-52055 Level 3 Est. Patient 09:21:24 CDT Piotr Daley [facility] CPT-21494 Level 3 Est. Patient 09:21:11 CDT Piotr Katie [facility] CPT-74919 Level 3 Est. Patient 11:16:29 JACK SETTER Piotr Daley [facility] CPT-89789 Level 3 Est. Patient 18:40:19 JACK SETTER Piotr Daley [facility] CPT-41470 Level 3 Est. Patient 19:30:50 CDT Piotr Daley [facility] CPT-68726 Level 3 Est. Patient 22:06:44 CDT Katrina Rinaldi MD PhD [facility] CPT-69846 Level 3 Est. Patient 14:20:00 CDT Piotr Daley [facility] CPT-35270 Level 3 Est. Patient 14:15:22 JACK SETTER Piotr Daley [facility] CPT-39251 Level 3 Est. Patient 20:19:57 JACK SETTER Piotr Daley [facility] CPT-43268 Level 3 Est. Patient 16:44:32 CDT Piotr Daley [facility] CPT-46951 Level 3 Est. Patient 08:48:46 JACK SETTER Piotr Daley [facility] CPT-74806 Level 3 Est. Patient 21:01:21 CDT Piotr Daley [facility] Procedures Code Procedure Name Date Entry Date Standard Description CPT-38827 BMP - LAB USE ONLY 17:19:11 JACK SETTER CPT-47638 PT/INR - LAB USE ONLY 17:19:10 JACK SETTER CPT-48623 Venipuncture Draw Fee 17:19:10 JACK SETTER CPT-92191 PT/INR - LAB USE ONLY 08:12:25 JACK SETTER CPT-87361 Venipuncture Draw Fee 08:12:24 JACK SETTER CPT-83845 Venipuncture Draw Fee 11:31:07 JACK SETTER CPT-33470 TPSA - LAB USE ONLY 11:31:07 JACK SETTER CPT-16061 PT/INR - LAB USE ONLY 11:31:07 JACK SETTER CPT-G0439 [facility] Annual Wellness Exam 09:59:29 JACK SETTER CPT-99803 Creatinine - LAB USE ONLY 14:37:55 JACK SETTER CPT-08407 PT/INR - LAB USE ONLY 14:37:55 JACK SETTER CPT-96323 Venipuncture Draw Fee 14:37:55 JACK SETTER CPT-61593 LS spine comp w obliques - XRAY USE ONLY 12:59:25 JACK SETTER CPT-95573 PT/INR - LAB USE ONLY 13:49:20 CDT CPT-44581 Venipuncture Draw Fee 13:49:19 CDT CPT-33471 PT/INR - LAB USE ONLY 15:48:49 CDT CPT-63557 Venipuncture Draw Fee 15:48:49 CDT CPT-49754 Venipuncture Draw Fee 11:31:59 CDT CPT-30290 PT/INR - LAB USE ONLY 11:31:59 CDT CPT-72139 Venipuncture Draw Fee 13:29:15 CDT CPT-51961 Thoracolumbar AP/Lat 15:19:19 JACK SETTER CPT-G0438 Initial Annual Wellness Exam 12:18:54 JACK SETTER CPT-24600 Knee 3V 09:57:38 CDT CPT-OV Office Visit 15:45:01 JACK SETTER CPT-45245 Abd compl w upright 17:10:25 CDT
--- OUTSIDE RECORDS SUMMARY | 2018-07-18 10:29 | XMS REPORT | Clinical Summary ---
Author Author Admin, Isidra Organization [employer] Address Unknown Phone Unavailable Allergies, Adverse Reactions, [...] Unspecified pruritic disorder Wellness exam V70.0 Active Emelynsunshine Norris Routine general medical examination at a health care facility Bronchitis-Acute 466.0 Active Piotr Daley DO Acute bronchitis HEALTH MAINTENANCE EXAM ICD-V70.0 Inactive Katrina Rinaldi MD PhD BRONCHITIS-ACUTE ICD-466.0 Inactive Piotr Daley DO SCREENING, COLON CANCER ICD-V76.51 Inactive Katrina Rinaldi MD PhD BRONCHITIS-ACUTE ICD-466.0 Inactive Piotr Daley DO DEEP VENOUS THROMBOPHLEBITIS, LEG, 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 Inactive Sirisha Chen EZE DEEP VENOUS THROMBOPHLEBITIS, LEG, 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 Inactive Sirisha Chen [employer]ING [employer] Seborrheic keratosis ICD-702.19 Inactive Sirisha Chen [employer] Bronchitis-Acute ICD-466.0 Inactive Piotr Daley DO Leg pain, right ICD-729.5 Inactive Sirisha Chen [employer] Right leg pain ICD-729.5 Inactive Sirisha Chen [employer]ING [employer] Bronchitis-Acute ICD-466.0 Inactive Sirisha Chen [employer]ING [employer] Knee pain, left ICD-719.46 Inactive Sirisha Chen [employer]ING [employer] Actinic keratoses ICD-702.0 Inactive Sirisha Chen [employer]ING [employer] Back pain, thoracic region, left ICD-724.1 Inactive Piotr Daley DO Thoracic back pain ICD-724.5 Inactive Sirisha Finneganvickey LOO Back pain lumbar ICD-724.2 Inactive Sirisha Chen [employer] Insect bite ICD-919.4 Inactive Sirisha Chenvickey AGEEN Pruritus ICD-698.9 Inactive Sirisha Chenvickey AGEEN 04/09 FLANK PAIN, RIGHT ICD-789.09 Inactive Katrina Rinaldi MD PhD Medication List Medication Instructions Start Date Stop Date Generic Name NDC Status Provider Patient Instruction CYCLOBENZAPRINE HCL 10 MG ORAL TABLET 1 tablet by mouth three times daily as needed for muscle spasm/pain CYCLOBENZAPRINE HCL 14132146306 Active Piotr Daley DO Active PREDNISONE 20 MG ORAL TABLET two tabs by mouth today, then one tab by mouth days two and three PREDNISONE 43281947679 Active Piotr Daley DO Active ZITHROMAX 250 MG ORAL TABLET Take two (2 ) tablets day one, then one (1) tablet a day for four (4) more days AZITHROMYCIN 12107911184 No Longer Active Piotr Daley DO Active PROAIR HFA 108 (90 BASE) MCG/ACT INHALATION AEROSOL SOLUTION 1-2 puffs four times a day as needed ALBUTEROL SULFATE 17732805627 No Longer Active Emelyn Norris Active DOXYCYCLINE HYCLATE 100 MG ORAL CAPSULE 1 cap by mouth BID x10 days DOXYCYCLINE HYCLATE 63374843670 No Longer Active Nella Harris APRN Active WARFARIN SODIUM 5 MG ORAL TABLET 1 tablet daily M-S, 1/2 tab on Heart WARFARIN SODIUM 06637679111 Active Piotr Daley DO Active PREDNISONE 20 MG ORAL TABLET 2 tabs daily for 3 days, 1 tab daily for 3 days, 1/2 tab daily for 2 days PREDNISONE 33315645749 No Longer Active Matthew Rangel MD Active TRAMADOL HCL 50 MG ORAL TABLET 1 po tid with ES Tylenol TRAMADOL HCL 06872558377 No Longer Active Matthew Rangel MD Active GABAPENTIN 300 MG ORAL CAPSULE 1 po q hs for nerve pain GABAPENTIN 08883293037 No Longer Active Matthew Rangel MD Active PREDNISONE 20 MG ORAL TABLET 2 tablets today, then 1 tablet days 2 through 4 PREDNISONE 60631984366 No Longer Active Piotr Daley DO Active AZITHROMYCIN 250 MG ORAL TABLET 2 po qd x 1 day, then 1 po qd x 4 days 07/12 AZITHROMYCIN 52773013779 No Longer Active Piotr Daley DO Active IBUPROFEN 800 MG ORAL TABLET 1 tab every 8 hours as needed 07/12 IBUPROFEN 31231758493 No Longer Active Piotr Daley DO Active LOMOTIL 2.5-0.025 MG ORAL TABLET 1 to 2 four times a day as needed for diarrhea DIPHENOXYLATE-ATROPINE 71829059303 No Longer Active Piotr Daley DO Active WARFARIN SODIUM 4 MG ORAL TABLET 1 tab every evening WARFARIN SODIUM 03793417643 No Longer Active Piotr Daley DO Active PREDNISONE 20 MG ORAL TABLET 1 tablet twice daily for 2 days, then 1 tablet once daily for 2 days PREDNISONE 18214217553 No Longer Active Piotr Daley DO Active PROMETHAZINE HCL 25 MG ORAL TABLET 1 four times a day as needed for nausea/ vomiting PROMETHAZINE HCL 40409646711 No Longer Active Piotr Daley DO Active TUSSIONEX PENNKINETIC ER 10-8 MG/5ML ORAL SUSPENSION EXTENDED RELEASE 5ml po q12hr PRN Cough HYDROCOD POLST-CHLORPHEN POLST 16772850282 No Longer Active Piotr Daley DO Active AZITHROMYCIN 250 MG ORAL TABLET 2 po qd x 1 day, then 1 po qd x 4 days 10/13 AZITHROMYCIN 11432430264 No Longer Active Piotr Daley DO Active AZITHROMYCIN 250 MG ORAL TABLET 2 po qd x 1 day, then 1 po qd x 4 days 05/07 AZITHROMYCIN 16036385040 No Longer Active Piotr Daley DO Active LISINOPRIL-HYDROCHLOROTHIAZIDE 10-12.5 MG ORAL TABLET 1 tab by mouth daily LISINOPRIL-HYDROCHLOROTHIAZIDE 16995654284 Active Piotr Daley DO Active LISINOPRIL 10 MG ORAL TABLET 1/2-1 tab po every other day LISINOPRIL 17322658076 No Longer Active Piotr Daley DO Active VENTOLIN HFA 108 (90 Base) MCG/ACT INHALATION AEROSOL SOLUTION 2 puffs four times a day PRN cough ALBUTEROL SULFATE 07697721722 No Longer Active Piotr Daley DO Active NYSTATIN-TRIAMCINOLONE 448684-0.1 UNIT/GM-% EXTERNAL CREAM Apply to area BID NYSTATIN-TRIAMCINOLONE 16020218137 No Longer Active Alena Chavira [employer]CTURING [employer]OB [employer]ITLES Active PHISOHEX 3 % LIQD Use Directed HEXACHLOROPHENE 26205765245 No Longer Active Sandra [place] Active AZITHROMYCIN 250 MG ORAL TABLET 2 po qd x 1 day, then 1 po qd x 4 days 10/21 AZITHROMYCIN 82410024418 No Longer Active Katrina Rinaldi MD PhD Active AZITHROMYCIN 250 MG ORAL TABLET 2 po qd x 1 day, then 1 po qd x 4 days 10/16 AZITHROMYCIN 55735211364 No Longer Active Piotr Daley DO Active AZITHROMYCIN 500 MG INTRAVENOUS SOLUTION RECONSTITUTED 1 po q day AZITHROMYCIN 54337061708 No Longer Active Piotr Daley DO Active NYSTATIN-TRIAMCINOLONE 034039-4.1 UNIT/GM-% EXTERNAL CREAM apply bid NYSTATIN-TRIAMCINOLONE 68868527226 No Longer Active Piotr Daley DO Active IBUPROFEN 800 MG ORAL TABLET 1 po q 8 hours prn pain sparinly IBUPROFEN 80696895965 No Longer Active Piotr Daley DO Active VITAMIN D3 5000 UNIT ORAL CAPSULE 1 po daily CHOLECALCIFEROL 98877307886 Active Piotr Daley DO Active IBUPROFEN 800 MG ORAL TABLET 1 po q 8 hours prn pain sparinly IBUPROFEN 800 MG ORAL TABLET 867105 IBUPROFEN Inactive NYSTATIN-TRIAMCINOLONE 483505-9.1 UNIT/GM-% EXTERNAL CREAM apply bid NYSTATIN-TRIAMCINOLONE 426342-5.1 UNIT/GM-% EXTERNAL CREAM 7839959 NYSTATIN-TRIAMCINOLONE Inactive AZITHROMYCIN 500 MG INTRAVENOUS SOLUTION RECONSTITUTED 1 po q day AZITHROMYCIN 500 MG INTRAVENOUS SOLUTION RECONSTITUTED 66297919307 AZITHROMYCIN Inactive VENTOLIN HFA 108 (90 Base) MCG/ACT INHALATION AEROSOL SOLUTION 2 puffs four times a day PRN cough VENTOLIN HFA 108 (90 Base) MCG/ ACT INHALATION AEROSOL SOLUTION ALBUTEROL SULFATE Inactive LISINOPRIL 10 MG ORAL TABLET 1/2-1 tab po every other day LISINOPRIL 10 MG ORAL TABLET 749896 LISINOPRIL Inactive TUSSIONEX PENNKINETIC ER 10-8 MG/5ML ORAL SUSPENSION EXTENDED RELEASE 5ml po q12hr PRN Cough TUSSIONEX PENNKINETIC ER 10-8 MG/5ML ORAL SUSPENSION EXTENDED RELEASE HYDROCOD POLST-CHLORPHEN POLST Inactive PROMETHAZINE HCL 25 MG ORAL TABLET 1 four times a day as needed for nausea/ vomiting PROMETHAZINE HCL 25 MG ORAL TABLET 983279 PROMETHAZINE HCL Inactive PREDNISONE 20 MG ORAL TABLET 1 tablet twice daily for 2 days, then 1 tablet once daily for 2 days PREDNISONE 20 MG ORAL TABLET 641120 PREDNISONE Inactive WARFARIN SODIUM 4 MG ORAL TABLET 1 tab every evening WARFARIN SODIUM 4 MG ORAL TABLET 376735 WARFARIN SODIUM Inactive LOMOTIL 2.5-0.025 MG ORAL TABLET 1 to 2 four times a day as needed for diarrhea LOMOTIL 2.5-0.025 MG ORAL TABLET 9623513 DIPHENOXYLATE-ATROPINE Inactive IBUPROFEN 800 MG ORAL TABLET 1 tab every 8 hours as needed 07/12 IBUPROFEN 800 MG ORAL TABLET 836481 IBUPROFEN Inactive PREDNISONE 20 MG ORAL TABLET 2 tablets today, then 1 tablet days 2 through 4 PREDNISONE 20 MG ORAL TABLET 216455 PREDNISONE Inactive GABAPENTIN 300 MG ORAL CAPSULE 1 po q hs for nerve pain GABAPENTIN 300 MG ORAL CAPSULE 143382 GABAPENTIN Inactive TRAMADOL HCL 50 MG ORAL TABLET 1 po tid with ES Tylenol TRAMADOL HCL 50 MG ORAL TABLET 858331 TRAMADOL HCL Inactive PROAIR HFA 108 (90 BASE) MCG/ACT INHALATION AEROSOL SOLUTION 1-2 puffs four times a day as needed PROAIR HFA 108 (90 BASE) MCG/ACT INHALATION AEROSOL SOLUTION ALBUTEROL SULFATE Inactive AZITHROMYCIN 250 MG ORAL TABLET 2 po qd x 1 day, then 1 po qd x 4 days 10/16 AZITHROMYCIN 250 MG ORAL TABLET 759897 AZITHROMYCIN Inactive AZITHROMYCIN 250 MG ORAL TABLET 2 po qd x 1 day, then 1 po qd x 4 days 10/21 AZITHROMYCIN 250 MG ORAL TABLET 918819 AZITHROMYCIN Inactive NYSTATIN-TRIAMCINOLONE 038585-4.1 UNIT/GM-% EXTERNAL CREAM Apply to area BID NYSTATIN-TRIAMCINOLONE 777059-2.1 UNIT/GM-% EXTERNAL CREAM 7770919 NYSTATIN-TRIAMCINOLONE Inactive AZITHROMYCIN 250 MG ORAL TABLET 2 po qd x 1 day, then 1 po qd x 4 days 05/07 AZITHROMYCIN 250 MG ORAL TABLET 454581 AZITHROMYCIN Inactive AZITHROMYCIN 250 MG ORAL TABLET 2 po qd x 1 day, then 1 po qd x 4 days 10/13 AZITHROMYCIN 250 MG ORAL TABLET 729459 AZITHROMYCIN Inactive AZITHROMYCIN 250 MG ORAL TABLET 2 po qd x 1 day, then 1 po qd x 4 days 07/12 AZITHROMYCIN 250 MG ORAL TABLET 979037 AZITHROMYCIN Inactive PREDNISONE 20 MG ORAL TABLET 2 tabs daily for 3 days, 1 tab daily for 3 days, 1/2 tab daily for 2 days PREDNISONE 20 MG ORAL TABLET 854111 PREDNISONE Inactive DOXYCYCLINE HYCLATE 100 MG ORAL CAPSULE 1 cap by mouth BID x10 days DOXYCYCLINE HYCLATE 100 MG ORAL CAPSULE 8014009 DOXYCYCLINE HYCLATE Inactive ZITHROMAX 250 MG ORAL TABLET Take two (2 ) tablets day one, then one (1) tablet a day for four (4) more days ZITHROMAX 250 MG ORAL TABLET 835580 AZITHROMYCIN Inactive Advance Directives Directive Description Start [...] Panel - Chemistry sodium, serum 141 mmol/L 304-870 1850/01/24 potassium, serum 4.3 mmol/L 3.5-5.2 chloride, serum [...] % 11.0-15.0 platelet count 172 THOUSAND/UL 10*3/mm3 731-815 0076/04/12 mean platelet volume 8.6 fL 7.5-12.5 Lab Report: Prothrombin Time - Coagulation prothrombin time (patient) 27.8 SECS s 11.1-13.4 international normalized ratio (INR) 4.2 1.0-3.5 Lab Report: Prothrombin Time Hemochron - Coagulation prothrombin time (patient) 33.0 SECS s 18.9-24.9 Encounters Code Encounter Date Provider Facility CPT-72637 Level 3 Est. Patient 15:56:17 LAISA Daley DO [facility] CPT-41516 Level 3 Est. Patient 10:34:54 BUTTER PRINTER Piotr Katie Edi [facility] CPT-08045 Level 3 Est. Patient 17:10:19 CDT Nella Harris APRN [facility] CPT-99264 Level 3 Est. Patient 10:48:17 BUTTER PRINTER Matthew Rangel MD [facility] CPT-17168 Level 4 Est. Patient 17:15:07 BUTTER PRINTER Piotr Wilson Edi [facility] CPT-27445 Level 3 Est. Patient 12:46:13 BUTTER PRINTER Piotr Wilson Edi [facility] CPT-54675 Level 3 Est. Patient 15:14:31 BUTTER PRINTER Piotr Wilson Edi [facility] CPT-83861 Level 3 Est. Patient 09:20:13 BUTTER PRINTER Piotr Wilson Edi [facility] CPT-11045 Level 3 Est. Patient 09:49:40 CDT Piotr Katie Daley [facility] CPT-81575 Level 3 Est. Patient 16:28:11 CDT Piotr Wilson Edi [facility] CPT-78827 Level 3 Est. Patient 12:41:58 BUTTER PRINTER Piotr Wilson Edi [facility] CPT-54326 Level 3 Est. Patient 09:21:24 CDT Piotr Katie Daley [facility] CPT-59679 Level 3 Est. Patient 09:21:11 CDT Piotr Wilson Edi [facility] CPT-15910 Level 3 Est. Patient 11:16:29 BUTTER PRINTER Piotr Wilson Edi [facility] CPT-72061 Level 3 Est. Patient 18:40:19 BUTTER PRINTER Piotr Daley [facility] CPT-46455 Level 3 Est. Patient 19:30:50 CDT Piotr Daley [facility] CPT-61781 Level 3 Est. Patient 22:06:44 CDT Katrina Rinaldi MD PhD [facility] CPT-50908 Level 3 Est. Patient 14:20:00 CDT Piotr Daley [facility] CPT-13047 Level 3 Est. Patient 14:15:22 BUTTER PRINTER Piotr Daley [facility] CPT-21098 Level 3 Est. Patient 20:19:57 BUTTER PRINTER Piotr Daley [facility] CPT-13944 Level 3 Est. Patient 16:44:32 CDT Piotr Daley [facility] CPT-02724 Level 3 Est. Patient 08:48:46 BUTTER PRINTER Piotr Daley [facility] CPT-42277 Level 3 Est. Patient 21:01:21 CDT Piotr Daley [facility] Procedures Code Procedure Name Date Entry Date Standard Description CPT-G0439 Subsequent Annual Wellness Exam 10:34:52 [facility] CPT-52394 BMP - LAB USE ONLY 17:19:11 [facility] CPT-42528 PT/INR - LAB USE ONLY 17:19:10 [facility] CPT-24835 Venipuncture Draw Fee 17:19:10 [facility] CPT-10665 PT/INR - LAB USE ONLY 08:12:25 [facility] CPT-56768 Venipuncture Draw Fee 08:12:24 [facility] CPT-64885 Venipuncture Draw Fee 11:31:07 [facility] CPT-41240 TPSA - LAB USE ONLY 11:31:07 [employer]TER [employer] CPT-56077 PT/INR - LAB USE ONLY 11:31:07 [facility] CPT-G0439 Subsequent Annual Wellness Exam 09:59:29 [employer]TER PRINTER CPT-00498 Creatinine - LAB USE ONLY 14:37:55 [employer] CPT-35992 PT/INR - LAB USE ONLY 14:37:55 [employer] PR[employer] CPT-68852 Venipuncture Draw Fee 14:37:55 [employer]TER PR[employer] CPT-41788 LS spine comp w obliques - XRAY USE ONLY 12:59:25 [employer] PRINTER CPT-82114 PT/INR - LAB USE ONLY 13:49:20 CDT CPT-32290 Venipuncture Draw Fee 13:49:19 CDT CPT-85260 PT/INR - LAB USE ONLY 15:48:49 CDT CPT-17780 Venipuncture Draw Fee 15:48:49 CDT CPT-03000 Venipuncture Draw Fee 11:31:59 CDT CPT-59081 PT/INR - LAB USE ONLY 11:31:59 CDT CPT-72335 Venipuncture Draw Fee 13:29:15 CDT CPT-31141 Thoracolumbar AP/Lat 15:19:19 BUTTER PRINTER CPT-G0438 Initial Annual Wellness Exam 12:18:54 BUTTER PRINTER CPT-54971 Knee 3V 09:57:38 CDT CPT-OV Office Visit 15:45:01 BUTTER PRINTER CPT-51009 Abd compl w upright 17:10:25 CDT
--- OUTSIDE RECORDS SUMMARY | 2018-07-18 10:30 | XMS REPORT | Clinical Summary ---
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 WARFARIN SODIUM 87453435821 Active Piotr Daley DO Active PREDNISONE 20 MG TAB 2 tablets today, then 1 tablet days 2 through 4 PREDNISONE 54578842742 No Longer Active Piotr Daley DO Active AZITHROMYCIN 250 MG TABS 2 po qd x 1 day, then 1 po qd x 4 days AZITHROMYCIN 97513600674 No Longer Active Piotr Daley DO Active IBUPROFEN 800 MG TABS 1 tab every 8 hours as needed IBUPROFEN 32810281886 No Longer Active Piotr Daley DO Active LOMOTIL 2.5-0.025 MG TAB 1 to 2 four times a day as needed for diarrhea 10/13 DIPHENOXYLATE-ATROPINE 67508571646 No Longer Active Piotr Daley DO Active WARFARIN SODIUM 4 MG TABS 1 tab every evening WARFARIN SODIUM 79790256210 No Longer Active Piotr Daley DO Active PREDNISONE 20 MG TAB 1 tablet twice daily for 2 days, then 1 tablet once daily for 2 days PREDNISONE 21782486269 No Longer Active Piotr Daley DO Active PROMETHAZINE HCL 25 MG TABS 1 four times a day as needed for nausea/vomiting PROMETHAZINE HCL 60721090776 No Longer Active Piotr Daley DO Active TUSSIONEX PENNKINETIC ER 10-8 MG/5ML LQCR 5ml po q12hr PRN Cough HYDROCOD POLST-CHLORPHEN POLST 01043311085 No Longer Active Piotr Daley DO Active AZITHROMYCIN 250 MG TABS 2 po qd x 1 day, then 1 po qd x 4 days AZITHROMYCIN 28998837449 No Longer Active Piotr Daley DO Active AZITHROMYCIN 250 MG TABS 2 po qd x 1 day, then 1 po qd x 4 days AZITHROMYCIN 19291952372 No Longer Active Piotr Daley DO Active LISINOPRIL-HYDROCHLOROTHIAZIDE 10-12.5 MG TABS 1 tab by mouth daily LISINOPRIL-HYDROCHLOROTHIAZIDE 40778993247 Active Hilary Ma MA Active LISINOPRIL 10 MG TABS 1/2-1 tab po every other day LISINOPRIL 67564110810 No Longer Active Piotr Daley DO Active VENTOLIN HFA 108 (90 BASE) MCG/ACT AERS 2 puffs four times a day PRN cough ALBUTEROL SULFATE 38175957306 No Longer Active Piotr Daley DO Active NYSTATIN-TRIAMCINOLONE 559517-9.1 UNIT/GM-% CREA Apply to area BID NYSTATIN-TRIAMCINOLONE 98673664064 No Longer Active Alean Jarvis Fan [employer] CAREGIVER Active PHISOHEX 3 % LIQD Use Directed HEXACHLOROPHENE 07977049151 No Longer Active Sandra [place] Active AZITHROMYCIN 250 MG TABS 2 po qd x 1 day, then 1 po qd x 4 days AZITHROMYCIN 41828179764 No Longer Active Katrina Rinaldi MD PhD Active AZITHROMYCIN 250 MG TABS 2 po qd x 1 day, then 1 po qd x 4 days AZITHROMYCIN 18935872794 No Longer Active Piotr Daley DO Active AZITHROMYCIN 500 MG SOLR 1 po q day AZITHROMYCIN 59798658315 No Longer Active Piotr Daley DO Active NYSTATIN-TRIAMCINOLONE 973470-9.1 UNIT/GM-% CREA apply bid 08/19 NYSTATIN-TRIAMCINOLONE 28173826260 No Longer Active Piotr Daley DO Active IBUPROFEN 800 MG TABS 1 po q 8 hours prn pain sparinly IBUPROFEN 25344389974 No Longer Active Piotr Daley DO Active VITAMIN D3 5000 UNIT CAPS 1 po daily CHOLECALCIFEROL 14488528297 Active Piotr Daley DO Active IBUPROFEN 800 MG TABS 1 po q 8 hours prn pain sparinly IBUPROFEN 800 MG TABS 549468 IBUPROFEN Inactive NYSTATIN-TRIAMCINOLONE 554882-2.1 UNIT/GM-% CREA apply bid 08/19 NYSTATIN-TRIAMCINOLONE 834313-6.1 UNIT/GM-% CREA 9032436 NYSTATIN- TRIAMCINOLONE Inactive AZITHROMYCIN 500 MG SOLR 1 po q day AZITHROMYCIN 500 MG SOLR 902478 AZITHROMYCIN Inactive VENTOLIN HFA 108 (90 BASE) MCG/ACT AERS 2 puffs four times a day PRN cough VENTOLIN HFA 108 (90 BASE) MCG/ACT AERS ALBUTEROL SULFATE Inactive LISINOPRIL 10 MG TABS 1/2-1 tab po every other day LISINOPRIL 10 MG TABS 727556 LISINOPRIL Inactive TUSSIONEX PENNKINETIC ER 10-8 MG/5ML LQCR 5ml po q12hr PRN Cough TUSSIONEX PENNKINETIC ER 10-8 MG/5ML LQCR HYDROCOD POLST- CHLORPHEN POLST Inactive PROMETHAZINE HCL 25 MG TABS 1 four times a day as needed for nausea/vomiting PROMETHAZINE HCL 25 MG TABS 155457 PROMETHAZINE HCL Inactive PREDNISONE 20 MG TAB 1 tablet twice daily for 2 days, then 1 tablet once daily for 2 days PREDNISONE 20 MG TAB 410655 PREDNISONE Inactive WARFARIN SODIUM 4 MG TABS 1 tab every evening WARFARIN SODIUM 4 MG TABS 813678 WARFARIN SODIUM Inactive LOMOTIL 2.5-0.025 MG TAB 1 to 2 four times a day as needed for diarrhea 10/13 LOMOTIL 2.5-0.025 MG TAB 3606442 DIPHENOXYLATE-ATROPINE Inactive IBUPROFEN 800 MG TABS 1 tab every 8 hours as needed IBUPROFEN 800 MG TABS 798811 IBUPROFEN Inactive PREDNISONE 20 MG TAB 2 tablets today, then 1 tablet days 2 through 4 PREDNISONE 20 MG TAB 390293 PREDNISONE Inactive AZITHROMYCIN 250 MG TABS 2 po qd x 1 day, then 1 po qd x 4 days AZITHROMYCIN 250 MG TABS 0652231 AZITHROMYCIN Inactive AZITHROMYCIN 250 MG TABS 2 po qd x 1 day, then 1 po qd x 4 days AZITHROMYCIN 250 MG TABS 2543466 AZITHROMYCIN Inactive NYSTATIN-TRIAMCINOLONE 917802-6.1 UNIT/GM-% CREA Apply to area BID NYSTATIN-TRIAMCINOLONE 123323-7.1 UNIT/GM-% CREA 6425308 NYSTATIN-TRIAMCINOLONE Inactive AZITHROMYCIN 250 MG TABS 2 po qd x 1 day, then 1 po qd x 4 days AZITHROMYCIN 250 MG TABS 6642224 AZITHROMYCIN Inactive AZITHROMYCIN 250 MG TABS 2 po qd x 1 day, then 1 po qd x 4 days AZITHROMYCIN 250 MG TABS 6977721 AZITHROMYCIN Inactive AZITHROMYCIN 250 MG TABS 2 po qd x 1 day, then 1 po qd x 4 days AZITHROMYCIN 250 MG TABS 1508874 AZITHROMYCIN Inactive Advance Directives Directive Description Start [...] mg/g mg/g{creat} 0-29 sodium, serum 140 mmol/L 055-681 4059/07/17 potassium, serum 4.2 mmol/L 3.5-5.2 chloride, serum [...] 5.0-8.5 Encounters Code Encounter Date Provider Facility CPT-93000 Level 3 Est. Patient 15:14:31 CESSPOOL CLEANER Piotr Daley [facility] CPT-23878 Level 3 Est. Patient 09:20:13 CESSPOOL CLEANER Piotr Daley [facility]-17319 Level 3 Est. Patient 09:49:40 CDT Piotr Daley [facility] CPT-50530 Level 3 Est. Patient 16:28:11 CDT Piotr Daley [facility] CPT-06825 Level 3 Est. Patient 12:41:58 CESSPOOL CLEANER Piotr Daley [facility] CPT-79892 Level 3 Est. Patient 09:21:24 CDT Piotr Daley [facility] CPT-89408 Level 3 Est. Patient 09:21:11 CDT Piotr Daley [facility]-80614 Level 3 Est. Patient 11:16:29 CESSPOOL CLEANER Piotr Daley [facility] CPT-48377 Level 3 Est. Patient 18:40:19 CESSPOOL CLEANER Piotr Daley [facility]-45641 Level 3 Est. Patient 19:30:50 CDT Piotr Daley [facility] CPT-55942 Level 3 Est. Patient 22:06:44 CDT Katrina Rinaldi MD PhD [facility]-69239 Level 3 Est. Patient 14:20:00 CDT Piotr Daley [facility] CPT-03302 Level 3 Est. Patient 14:15:22 [employer]ESSPOOL CLEANER Piotr Katie Edi [facility] CPT-12352 Level 3 Est. Patient 20:19:57 CESSPOOL CLEANER Piotr Wilson Edi [facility] CPT-54437 Level 3 Est. Patient 16:44:32 CDT Piotr Wilson Edi [facility] CPT-65531 Level 3 Est. Patient 08:48:46 CESSPOOL CLEANER Piotr Wilson [facility] CPT-77834 Level 3 Est. Patient 21:01:21 CDT Piotr Wilson [facility] Procedures Code Procedure Name Date Entry Date Standard Description CPT-59025 Thoracolumbar AP/Lat 15:19:19 [employer] CPT-G0438 Initial Annual Wellness Exam 12:18:54 [employer]ES[employer]OOL CLEANER CPT-39985 Knee 3V 09:57:38 CDT CPT-OV Office Visit 15:45:01 CESSPOOL CLEANER CPT-28409 Abd compl w upright 17:10:25 CDT
--- OUTSIDE RECORDS SUMMARY | 2018-07-18 10:31 | XMS REPORT | Clinical Summary ---
Author Author Admin, [employer] Organization [employer] Address Unknown Phone Unavailable Allergies, Adverse Reactions, [...] times a day as needed ALBUTEROL SULFATE 24240004046 Active Matthew Rangel MD Active PREDNISONE 20 MG TAB 2 tabs daily for 3 days, 1 tab daily for 3 days, 1/2 tab daily for 2 days PREDNISONE 87439942189 Active Matthew Rangel MD Active TRAMADOL HCL 50 MG TABS 1 po tid with ES Tylenol TRAMADOL HCL 12066511806 No Longer Active Matthew Rangel MD Active GABAPENTIN 300 MG CAPS 1 po q hs for nerve pain GABAPENTIN 37475040081 No Longer Active Matthew Rangel MD Active WARFARIN SODIUM 5 MG TABS 1 tablet daily WARFARIN SODIUM 21772789571 Active Piotr Daley DO Active PREDNISONE 20 MG TAB 2 tablets today, then 1 tablet days 2 through 4 PREDNISONE 72195926850 No Longer Active Piotr Daley DO Active AZITHROMYCIN 250 MG TABS 2 po qd x 1 day, then 1 po qd x 4 days AZITHROMYCIN 67951479340 No Longer Active Piotr Daley DO Active IBUPROFEN 800 MG TABS 1 tab every 8 hours as needed IBUPROFEN 05230201388 No Longer Active Piotr Daley DO Active LOMOTIL 2.5-0.025 MG TAB 1 to 2 four times a day as needed for diarrhea 10/13 DIPHENOXYLATE-ATROPINE 38039521143 No Longer Active Piotr Daley DO Active WARFARIN SODIUM 4 MG TABS 1 tab every evening WARFARIN SODIUM 50990857121 No Longer Active Piotr Daley DO Active PREDNISONE 20 MG TAB 1 tablet twice daily for 2 days, then 1 tablet once daily for 2 days PREDNISONE 35073943881 No Longer Active Piotr Daley DO Active PROMETHAZINE HCL 25 MG TABS 1 four times a day as needed for nausea/vomiting PROMETHAZINE HCL 92093821000 No Longer Active Piotr Daley DO Active TUSSIONEX PENNKINETIC ER 10-8 MG/5ML LQCR 5ml po q12hr PRN Cough HYDROCOD POLST-CHLORPHEN POLST 99930512391 No Longer Active Piotr Daley DO Active AZITHROMYCIN 250 MG TABS 2 po qd x 1 day, then 1 po qd x 4 days AZITHROMYCIN 10767373992 No Longer Active Piotr Daley DO Active AZITHROMYCIN 250 MG TABS 2 po qd x 1 day, then 1 po qd x 4 days AZITHROMYCIN 91425127798 No Longer Active Piotr Daley DO Active LISINOPRIL-HYDROCHLOROTHIAZIDE 10-12.5 MG TABS 1 tab by mouth daily LISINOPRIL-HYDROCHLOROTHIAZIDE 03257192068 Active Simi Meyers Active LISINOPRIL 10 MG TABS 1/2-1 tab po every other day LISINOPRIL 54910379628 No Longer Active Piotr Daley DO Active VENTOLIN HFA 108 (90 BASE) MCG/ACT AERS 2 puffs four times a day PRN cough ALBUTEROL SULFATE 51080499285 No Longer Active Piotr Daley DO Active NYSTATIN-TRIAMCINOLONE 392865-1.1 UNIT/GM-% CREA Apply to area BID NYSTATIN-TRIAMCINOLONE 93497456888 No Longer Active Alena Chavira ASSISTANT OFFICE MANAGER Active PHISOHEX 3 % LIQD Use Directed HEXACHLOROPHENE 17827937388 No Longer Active Sandra Burciagar Active AZITHROMYCIN 250 MG TABS 2 po qd x 1 day, then 1 po qd x 4 days AZITHROMYCIN 73288600090 No Longer Active Katrina Rinaldi MD PhD Active AZITHROMYCIN 250 MG TABS 2 po qd x 1 day, then 1 po qd x 4 days AZITHROMYCIN 40962725411 No Longer Active Piotr Daley DO Active AZITHROMYCIN 500 MG SOLR 1 po q day AZITHROMYCIN 32694429822 No Longer Active Piotr Daley DO Active NYSTATIN-TRIAMCINOLONE 389747-6.1 UNIT/GM-% CREA apply bid 08/19 NYSTATIN-TRIAMCINOLONE 31648972499 No Longer Active Piotr Daley DO Active IBUPROFEN 800 MG TABS 1 po q 8 hours prn pain sparinly IBUPROFEN 61769239537 No Longer Active Piotr Daley DO Active VITAMIN D3 5000 UNIT CAPS 1 po daily CHOLECALCIFEROL 99794446333 Active Piotr Daley DO Active IBUPROFEN 800 MG TABS 1 po q 8 hours prn pain sparinly IBUPROFEN 800 MG TABS 573836 IBUPROFEN Inactive NYSTATIN-TRIAMCINOLONE 131901-4.1 UNIT/GM-% CREA apply bid 08/19 NYSTATIN-TRIAMCINOLONE 649488-8.1 UNIT/GM-% CREA 1864379 NYSTATIN- TRIAMCINOLONE Inactive AZITHROMYCIN 500 MG SOLR 1 po q day AZITHROMYCIN 500 MG SOLR 42248962565 AZITHROMYCIN Inactive VENTOLIN HFA 108 (90 BASE) MCG/ACT AERS 2 puffs four times a day PRN cough VENTOLIN HFA 108 (90 BASE) MCG/ACT AERS ALBUTEROL SULFATE Inactive LISINOPRIL 10 MG TABS 1/2-1 tab po every other day LISINOPRIL 10 MG TABS 984767 LISINOPRIL Inactive TUSSIONEX PENNKINETIC ER 10-8 MG/5ML LQCR 5ml po q12hr PRN Cough TUSSIONEX PENNKINETIC ER 10-8 MG/5ML LQCR HYDROCOD POLST- CHLORPHEN POLST Inactive PROMETHAZINE HCL 25 MG TABS 1 four times a day as needed for nausea/vomiting PROMETHAZINE HCL 25 MG TABS 105491 PROMETHAZINE HCL Inactive PREDNISONE 20 MG TAB 1 tablet twice daily for 2 days, then 1 tablet once daily for 2 days PREDNISONE 20 MG TAB 909255 PREDNISONE Inactive WARFARIN SODIUM 4 MG TABS 1 tab every evening WARFARIN SODIUM 4 MG TABS 859134 WARFARIN SODIUM Inactive LOMOTIL 2.5-0.025 MG TAB 1 to 2 four times a day as needed for diarrhea 10/13 LOMOTIL 2.5-0.025 MG TAB 4532961 DIPHENOXYLATE-ATROPINE Inactive IBUPROFEN 800 MG TABS 1 tab every 8 hours as needed IBUPROFEN 800 MG TABS 758279 IBUPROFEN Inactive PREDNISONE 20 MG TAB 2 tablets today, then 1 tablet days 2 through 4 PREDNISONE 20 MG TAB 476428 PREDNISONE Inactive GABAPENTIN 300 MG CAPS 1 po q hs for nerve pain GABAPENTIN 300 MG CAPS 584028 GABAPENTIN Inactive TRAMADOL HCL 50 MG TABS 1 po tid with ES Tylenol TRAMADOL HCL 50 MG TABS 156460 TRAMADOL HCL Inactive AZITHROMYCIN 250 MG TABS 2 po qd x 1 day, then 1 po qd x 4 days AZITHROMYCIN 250 MG TABS 0537514 AZITHROMYCIN Inactive AZITHROMYCIN 250 MG TABS 2 po qd x 1 day, then 1 po qd x 4 days AZITHROMYCIN 250 MG TABS 5466678 AZITHROMYCIN Inactive NYSTATIN-TRIAMCINOLONE 257770-5.1 UNIT/GM-% CREA Apply to area BID NYSTATIN-TRIAMCINOLONE 814880-4.1 UNIT/GM-% CREA 2273373 NYSTATIN-TRIAMCINOLONE Inactive AZITHROMYCIN 250 MG TABS 2 po qd x 1 day, then 1 po qd x 4 days AZITHROMYCIN 250 MG TABS 8342208 AZITHROMYCIN Inactive AZITHROMYCIN 250 MG TABS 2 po qd x 1 day, then 1 po qd x 4 days AZITHROMYCIN 250 MG TABS 4736831 AZITHROMYCIN Inactive AZITHROMYCIN 250 MG TABS 2 po qd x 1 day, then 1 po qd x 4 days AZITHROMYCIN 250 MG TABS 2150047 AZITHROMYCIN Inactive Advance Directives Directive Description Start [...] Panel - Chemistry sodium, serum 141 mmol/L 782-110 3019/01/24 potassium, serum 4.3 mmol/L 3.5-5.2 chloride, serum 103 mmol/L 98-107 carbon dioxide, venous blood 30.7 mmol/L 21.0-32.0 blood glucose 90 mg/dL 65-110 calcium, serum 8.5 mg/dL 8.5-10.1 urea nitrogen, blood 16 mg/dL 7-18 creatinine, serum 1.09 mg/dL 0.55-1.30 Lab Report: Comp. Metabolic Panel - Chemistry sodium, serum 141 mmol/L 632-749 2910/06/28 carbon dioxide, venous blood 31.0 mmol/L 21.0-32.0 [...] 1.0-3.5 Encounters Code Encounter Date Provider Facility CPT-41236 Level 3 Est. Patient 10:48:17 CORPORATE COMMUNICATIONS INTERN Matthew Rangel MD [facility] CPT-70452 Level 4 Est. Patient 17:15:07 CORPORATE COMMUNICATIONS INTERN Piotr Daley [facility] CPT-42619 Level 3 Est. Patient 12:46:13 CORPORATE COMMUNICATIONS INTERN Piotr Daley [facility] CPT-34566 Level 3 Est. Patient 15:14:31 CORPORATE COMMUNICATIONS INTERN Piotr Daley [facility] CPT-70478 Level 3 Est. Patient 09:20:13 CORPORATE COMMUNICATIONS INTERN Piotr Daley [facility] CPT-35582 Level 3 Est. Patient 09:49:40 CDT Piotr [facility] CPT-01598 Level 3 Est. Patient 16:28:11 CDT Piotr Daley [facility] CPT-07158 Level 3 Est. Patient 12:41:58 CORPORATE COMMUNICATIONS INTERN Piotr Daley [facility] CPT-66900 Level 3 Est. Patient 09:21:24 CDT Piotr Daley [facility] CPT-13206 Level 3 Est. Patient 09:21:11 CDT Piotr Wilson [facility] CPT-42304 Level 3 Est. Patient 11:16:29 CORPORATE COMMUNICATIONS INTERN Piotr Daley [facility] CPT-90448 Level 3 Est. Patient 18:40:19 CORPORATE COMMUNICATIONS INTERN Piotr Daley [facility] CPT-76292 Level 3 Est. Patient 19:30:50 CDT Piotr Wilson [facility] CPT-49974 Level 3 Est. Patient 22:06:44 CDT Katrina Rinaldi MD PhD [facility] CPT-24976 Level 3 Est. Patient 14:20:00 CDT Piotr Daley [facility] CPT-05902 Level 3 Est. Patient 14:15:22 CORPORATE COMMUNICATIONS INTERN Piotr Daley [facility] CPT-85950 Level 3 Est. Patient 20:19:57 CORPORATE COMMUNICATIONS INTERN Piotr Daley [facility] CPT-35377 Level 3 Est. Patient 16:44:32 CDT Piotr Daley [facility] CPT-43648 Level 3 Est. Patient 08:48:46 CORPORATE COMMUNICATIONS INTERN Piotr Daley [facility] CPT-87826 Level 3 Est. Patient 21:01:21 CDT Piotr Daley [facility] Procedures Code Procedure Name Date Entry Date Standard Description CPT-77405 BMP - LAB USE ONLY 17:19:11 CORPORATE COMMUNICATIONS INTERN CPT-96645 PT/INR - LAB USE ONLY 17:19:10 CORPORATE COMMUNICATIONS INTERN CPT-87874 Venipuncture Draw Fee 17:19:10 CORPORATE COMMUNICATIONS INTERN CPT-80932 PT/INR - LAB USE ONLY 08:12:25 CORPORATE COMMUNICATIONS INTERN CPT-70921 Venipuncture Draw Fee 08:12:24 CORPORATE COMMUNICATIONS INTERN CPT-20622 Venipuncture Draw Fee 11:31:07 CORPORATE COMMUNICATIONS INTERN CPT-74942 TPSA - LAB USE ONLY 11:31:07 CORPORATE COMMUNICATIONS INTERN CPT-00647 PT/INR - LAB USE ONLY 11:31:07 CORPORATE COMMUNICATIONS INTERN CPT-G0439 [facility] Annual Wellness Exam 09:59:29 CORPORATE COMMUNICATIONS INTERN CPT-97995 Creatinine - LAB USE ONLY 14:37:55 CORPORATE COMMUNICATIONS INTERN CPT-20634 PT/INR - LAB USE ONLY 14:37:55 CORPORATE COMMUNICATIONS INTERN CPT-14138 Venipuncture Draw Fee 14:37:55 CORPORATE COMMUNICATIONS INTERN CPT-22080 LS spine comp w obliques - XRAY USE ONLY 12:59:25 CORPORATE COMMUNICATIONS INTERN CPT-87951 PT/INR - LAB USE ONLY 13:49:20 CDT CPT-94216 Venipuncture Draw Fee 13:49:19 CDT CPT-08790 PT/INR - LAB USE ONLY 15:48:49 CDT CPT-81056 Venipuncture Draw Fee 15:48:49 CDT CPT-15474 Venipuncture Draw Fee 11:31:59 CDT CPT-54191 PT/INR - LAB USE ONLY 11:31:59 CDT CPT-51975 Venipuncture Draw Fee 13:29:15 CDT CPT-41525 Thoracolumbar AP/Lat 15:19:19 CORPORATE COMMUNICATIONS INTERN CPT-G0438 Initial Annual Wellness Exam 12:18:54 CORPORATE COMMUNICATIONS INTERN CPT-20405 Knee 3V 09:57:38 CDT CPT-OV Office Visit 15:45:01 CORPORATE COMMUNICATIONS INTERN CPT-21230 Abd compl w upright 17:10:25 CDT
--- OUTSIDE RECORDS SUMMARY | 2018-07-18 10:32 | XMS REPORT | Clinical Summary ---
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 Personal history of malignant neoplasm of prostate Coronary artery disease 414.00 Active Alina Meyers APRN Coronary atherosclerosis of unspecified type of vessel, [place] or graft Back pain, thoracic region, left [...] po q hs for nerve pain GABAPENTIN 55937158143 Active Piotr Daley DO Active WARFARIN SODIUM 5 MG TABS 1 tablet daily WARFARIN SODIUM 79645777834 Active Simi Meyers Active TRAMADOL HCL 50 MG TABS 1 po tid with ES Tylenol TRAMADOL HCL 56747697071 Active Piotr Daley DO Active PREDNISONE 20 MG TAB 2 tablets today, then 1 tablet days 2 through 4 PREDNISONE 34161635212 No Longer Active Piotr Daley DO Active AZITHROMYCIN 250 MG TABS 2 po qd x 1 day, then 1 po qd x 4 days AZITHROMYCIN 36308159059 No Longer Active Piotr Daley DO Active IBUPROFEN 800 MG TABS 1 tab every 8 hours as needed IBUPROFEN 25133693040 No Longer Active Piotr Daley DO Active LOMOTIL 2.5-0.025 MG TAB 1 to 2 four times a day as needed for diarrhea 10/13 DIPHENOXYLATE-ATROPINE 67575897022 No Longer Active Piotr Daley DO Active WARFARIN SODIUM 4 MG TABS 1 tab every evening WARFARIN SODIUM 00104350149 No Longer Active Piotr Daley DO Active PREDNISONE 20 MG TAB 1 tablet twice daily for 2 days, then 1 tablet once daily for 2 days PREDNISONE 45036372138 No Longer Active Piotr Daley DO Active PROMETHAZINE HCL 25 MG TABS 1 four times a day as needed for nausea/vomiting PROMETHAZINE HCL 26255182388 No Longer Active Piotr Daley DO Active TUSSIONEX PENNKINETIC ER 10-8 MG/5ML LQCR 5ml po q12hr PRN Cough HYDROCOD POLST-CHLORPHEN POLST 33304666024 No Longer Active Piotr Daley DO Active AZITHROMYCIN 250 MG TABS 2 po qd x 1 day, then 1 po qd x 4 days AZITHROMYCIN 92072993366 No Longer Active Piotr Daley DO Active AZITHROMYCIN 250 MG TABS 2 po qd x 1 day, then 1 po qd x 4 days AZITHROMYCIN 13180427051 No Longer Active Piotr Daley DO Active LISINOPRIL-HYDROCHLOROTHIAZIDE 10-12.5 MG TABS 1 tab by mouth daily LISINOPRIL-HYDROCHLOROTHIAZIDE 33393679120 Active Hilary Ma MA Active LISINOPRIL 10 MG TABS 1/2-1 tab po every other day LISINOPRIL 65743672350 No Longer Active Piotr Daley DO Active VENTOLIN HFA 108 (90 BASE) MCG/ACT AERS 2 puffs four times a day PRN cough ALBUTEROL SULFATE 22797154426 No Longer Active Piotr Daley DO Active NYSTATIN-TRIAMCINOLONE 140606-6.1 UNIT/GM-% CREA Apply to area BID NYSTATIN-TRIAMCINOLONE 84651141407 No Longer Active Alena Chavira ELEMENTARY ASSISTANT TEACHER Active PHISOHEX 3 % LIQD Use Directed HEXACHLOROPHENE 04388277775 No Longer Active Sandra [place] Active AZITHROMYCIN 250 MG TABS 2 po qd x 1 day, then 1 po qd x 4 days AZITHROMYCIN 76559928092 No Longer Active Katrina Rinaldi MD PhD Active AZITHROMYCIN 250 MG TABS 2 po qd x 1 day, then 1 po qd x 4 days AZITHROMYCIN 40906657385 No Longer Active Piotr Daley DO Active AZITHROMYCIN 500 MG SOLR 1 po q day AZITHROMYCIN 71927054564 No Longer Active Piotr Daley DO Active NYSTATIN-TRIAMCINOLONE 211219-3.1 UNIT/GM-% CREA apply bid 08/19 NYSTATIN-TRIAMCINOLONE 58392471602 No Longer Active Piotr Daley DO Active IBUPROFEN 800 MG TABS 1 po q 8 hours prn pain sparinly IBUPROFEN 28273153046 No Longer Active Piotr Daley DO Active VITAMIN D3 5000 UNIT CAPS 1 po daily CHOLECALCIFEROL 95456249981 Active Piotr Daley DO Active IBUPROFEN 800 MG TABS 1 po q 8 hours prn pain sparinly IBUPROFEN 800 MG TABS 136460 IBUPROFEN Inactive NYSTATIN-TRIAMCINOLONE 461482-7.1 UNIT/GM-% CREA apply bid 08/19 NYSTATIN-TRIAMCINOLONE 741011-9.1 UNIT/GM-% CREA 1261373 NYSTATIN- TRIAMCINOLONE Inactive AZITHROMYCIN 500 MG SOLR 1 po q day AZITHROMYCIN 500 MG SOLR 37030703430 AZITHROMYCIN Inactive VENTOLIN HFA 108 (90 BASE) MCG/ACT AERS 2 puffs four times a day PRN cough VENTOLIN HFA 108 (90 BASE) MCG/ACT AERS ALBUTEROL SULFATE Inactive LISINOPRIL 10 MG TABS 1/2-1 tab po every other day LISINOPRIL 10 MG TABS 593559 LISINOPRIL Inactive TUSSIONEX PENNKINETIC ER 10-8 MG/5ML LQCR 5ml po q12hr PRN Cough TUSSIONEX PENNKINETIC ER 10-8 MG/5ML LQCR HYDROCOD POLST- CHLORPHEN POLST Inactive PROMETHAZINE HCL 25 MG TABS 1 four times a day as needed for nausea/vomiting PROMETHAZINE HCL 25 MG TABS 003878 PROMETHAZINE HCL Inactive PREDNISONE 20 MG TAB 1 tablet twice daily for 2 days, then 1 tablet once daily for 2 days PREDNISONE 20 MG TAB 954686 PREDNISONE Inactive WARFARIN SODIUM 4 MG TABS 1 tab every evening WARFARIN SODIUM 4 MG TABS 470107 WARFARIN SODIUM Inactive LOMOTIL 2.5-0.025 MG TAB 1 to 2 four times a day as needed for diarrhea 10/13 LOMOTIL 2.5-0.025 MG TAB 3206308 DIPHENOXYLATE-ATROPINE Inactive IBUPROFEN 800 MG TABS 1 tab every 8 hours as needed IBUPROFEN 800 MG TABS 335746 IBUPROFEN Inactive PREDNISONE 20 MG TAB 2 tablets today, then 1 tablet days 2 through 4 PREDNISONE 20 MG TAB 802194 PREDNISONE Inactive AZITHROMYCIN 250 MG TABS 2 po qd x 1 day, then 1 po qd x 4 days AZITHROMYCIN 250 MG TABS 3342227 AZITHROMYCIN Inactive AZITHROMYCIN 250 MG TABS 2 po qd x 1 day, then 1 po qd x 4 days AZITHROMYCIN 250 MG TABS 5191801 AZITHROMYCIN Inactive NYSTATIN-TRIAMCINOLONE 760323-0.1 UNIT/GM-% CREA Apply to area BID NYSTATIN-TRIAMCINOLONE 727049-8.1 UNIT/GM-% CREA 7398968 NYSTATIN-TRIAMCINOLONE Inactive AZITHROMYCIN 250 MG TABS 2 po qd x 1 day, then 1 po qd x 4 days AZITHROMYCIN 250 MG TABS 2138576 AZITHROMYCIN Inactive AZITHROMYCIN 250 MG TABS 2 po qd x 1 day, then 1 po qd x 4 days AZITHROMYCIN 250 MG TABS 8410127 AZITHROMYCIN Inactive AZITHROMYCIN 250 MG TABS 2 po qd x 1 day, then 1 po qd x 4 days AZITHROMYCIN 250 MG TABS 9788770 AZITHROMYCIN Inactive Advance Directives Directive Description Start [...] Panel - Chemistry sodium, serum 141 mmol/L 198-632 3186/06/28 carbon dioxide, venous blood 31.0 mmol/L 21.0-32.0 [...] Negative Encounters Code Encounter Date Provider Facility CPT-34410 Level 4 Est. Patient 17:15:07 COMMISSIONING EDITOR Piort Daley [facility] CPT-10302 Level 3 Est. Patient 12:46:13 COMMISSIONING EDITOR Piotr Daley [facility] CPT-39428 Level 3 Est. Patient 15:14:31 COMMISSIONING EDITOR Piotr Daley [facility] CPT-31558 Level 3 Est. Patient 09:20:13 COMMISSIONING EDITOR Piotr Katie Edi [facility] CPT-41733 Level 3 Est. Patient 09:49:40 CDT Piotr Katie Edi [facility] CPT-65031 Level 3 Est. Patient 16:28:11 CDT Piotr Katie Edi [facility] CPT-50076 Level 3 Est. Patient 12:41:58 COMMISSIONING EDITOR Piotr Daley [facility] CPT-71266 Level 3 Est. Patient 09:21:24 CDT Piotr Wilson [facility] CPT-10359 Level 3 Est. Patient 09:21:11 CDT Piotr Daley [facility] CPT-43652 Level 3 Est. Patient 11:16:29 COMMISSIONING EDITOR Piotr Daley [facility] CPT-21759 Level 3 Est. Patient 18:40:19 COMMISSIONING EDITOR Piotr Daley [facility] CPT-92473 Level 3 Est. Patient 19:30:50 CDT Piotr Daley [facility] CPT-94967 Level 3 Est. Patient 22:06:44 CDT Katrina Rinaldi MD [facility] CPT-83727 Level 3 Est. Patient 14:20:00 CDT Piotr Daley [facility] CPT-94178 Level 3 Est. Patient 14:15:22 COMMISSIONING EDITOR Piotr Daley [facility] CPT-50733 Level 3 Est. Patient 20:19:57 COMMISSIONING EDITOR Piotr Daley [facility] CPT-87336 Level 3 Est. Patient 16:44:32 CDT Piotr Daley [facility] CPT-90917 Level 3 Est. Patient 08:48:46 COMMISSIONING EDITOR Piotr Daley [facility] CPT-06192 Level 3 Est. Patient 21:01:21 CDT Piotr Daley [facility] Procedures Code Procedure Name Date Entry Date Standard Description CPT-32944 Creatinine - LAB USE ONLY 14:37:55 COMMISSIONING EDITOR CPT-19101 PT/INR - LAB USE ONLY 14:37:55 COMMISSIONING EDITOR CPT-64655 Venipuncture Draw Fee 14:37:55 COMMISSIONING EDITOR CPT-12080 LS spine comp w obliques - XRAY USE ONLY 12:59:25 COMMISSIONING EDITOR CPT-99764 PT/INR - LAB USE ONLY 13:49:20 CDT CPT-01468 Venipuncture Draw Fee 13:49:19 CDT CPT-07630 PT/INR - LAB USE ONLY 15:48:49 CDT CPT-57238 Venipuncture Draw Fee 15:48:49 CDT CPT-26268 Venipuncture Draw Fee 11:31:59 CDT CPT-21461 PT/INR - LAB USE ONLY 11:31:59 CDT CPT-23463 Venipuncture Draw Fee 13:29:15 CDT CPT-57400 Thoracolumbar AP/Lat 15:19:19 COMMISSIONING EDITOR CPT-G0438 Initial Annual Wellness Exam 12:18:54 COMMISSIONING EDITOR CPT-15325 Knee 3V 09:57:38 CDT CPT-OV Office Visit 15:45:01 COMMISSIONING EDITOR CPT-97578 Abd compl w upright 17:10:25 CDT
--- OUTSIDE RECORDS SUMMARY | 2018-07-18 10:32 | XMS REPORT | Clinical Summary ---
Author Author Admin, Isidra Organization [employer] Address Unknown Phone Unavailable Allergies, Adverse [...] times a day as needed ALBUTEROL SULFATE 74906746298 Active Matthew Rangel MD Active PREDNISONE 20 MG TAB 2 tabs daily for 3 days, 1 tab daily for 3 days, 1/2 tab daily for 2 days PREDNISONE 74528536453 No Longer Active Matthew Rangel MD Active TRAMADOL HCL 50 MG TABS 1 po tid with ES Tylenol TRAMADOL HCL 02750822973 No Longer Active Matthew Rangel MD Active GABAPENTIN 300 MG CAPS 1 po q hs for nerve pain GABAPENTIN 63223397088 No Longer Active Matthew Rangel MD Active WARFARIN SODIUM 5 MG TABS 1 tablet daily WARFARIN SODIUM 90729830160 Active Piotr Daley DO Active PREDNISONE 20 MG TAB 2 tablets today, then 1 tablet days 2 through 4 PREDNISONE 21697528396 No Longer Active Piotr Daley DO Active AZITHROMYCIN 250 MG TABS 2 po qd x 1 day, then 1 po qd x 4 days AZITHROMYCIN 49760230701 No Longer Active Piotr Daley DO Active IBUPROFEN 800 MG TABS 1 tab every 8 hours as needed IBUPROFEN 18410322580 No Longer Active Piotr Daley DO Active LOMOTIL 2.5-0.025 MG TAB 1 to 2 four times a day as needed for diarrhea 10/13 DIPHENOXYLATE-ATROPINE 08380513383 No Longer Active Piotr Daley DO Active WARFARIN SODIUM 4 MG TABS 1 tab every evening WARFARIN SODIUM 52105305909 No Longer Active Piotr Daley DO Active PREDNISONE 20 MG TAB 1 tablet twice daily for 2 days, then 1 tablet once daily for 2 days PREDNISONE 13045770532 No Longer Active Piotr Daley DO Active PROMETHAZINE HCL 25 MG TABS 1 four times a day as needed for nausea/vomiting PROMETHAZINE HCL 97730657924 No Longer Active Piotr Daley DO Active TUSSIONEX PENNKINETIC ER 10-8 MG/5ML LQCR 5ml po q12hr PRN Cough HYDROCOD POLST-CHLORPHEN POLST 49798617170 No Longer Active Piotr Daley DO Active AZITHROMYCIN 250 MG TABS 2 po qd x 1 day, then 1 po qd x 4 days AZITHROMYCIN 77822144683 No Longer Active Piotr Daley DO Active AZITHROMYCIN 250 MG TABS 2 po qd x 1 day, then 1 po qd x 4 days AZITHROMYCIN 53293510202 No Longer Active Piotr Daley DO Active LISINOPRIL-HYDROCHLOROTHIAZIDE 10-12.5 MG TABS 1 tab by mouth daily LISINOPRIL-HYDROCHLOROTHIAZIDE 16560754619 Active Catalina Freitas Active LISINOPRIL 10 MG TABS 1/2-1 tab po every other day LISINOPRIL 41189765849 No Longer Active Piotr Daley DO Active VENTOLIN HFA 108 (90 BASE) MCG/ACT AERS 2 puffs four times a day PRN cough ALBUTEROL SULFATE 08709740153 No Longer Active Piotr Daley DO Active NYSTATIN-TRIAMCINOLONE 882164-4.1 UNIT/GM-% CREA Apply to area BID NYSTATIN-TRIAMCINOLONE 46729727222 No Longer Active Alena Chavira 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 [employer] PLASTERBOARD Active PHISOHEX 3 % LIQD Use Directed HEXACHLOROPHENE 37180752830 No Longer Active Sandra Dentarger Active AZITHROMYCIN 250 MG TABS 2 po qd x 1 day, then 1 po qd x 4 days AZITHROMYCIN 97504965938 No Longer Active Katrina Rinaldi MD PhD Active AZITHROMYCIN 250 MG TABS 2 po qd x 1 day, then 1 po qd x 4 days AZITHROMYCIN 24915900935 No Longer Active Piotr Daley DO Active AZITHROMYCIN 500 MG SOLR 1 po q day AZITHROMYCIN 92335845992 No Longer Active Piotr Daley DO Active NYSTATIN-TRIAMCINOLONE 681975-6.1 UNIT/GM-% CREA apply bid 08/19 NYSTATIN-TRIAMCINOLONE 22401075962 No Longer Active Piotr Daley DO Active IBUPROFEN 800 MG TABS 1 po q 8 hours prn pain sparinly IBUPROFEN 66917906292 No Longer Active Piotr Daley DO Active VITAMIN D3 5000 UNIT CAPS 1 po daily CHOLECALCIFEROL 14504240178 Active Piotr Daley DO Active IBUPROFEN 800 MG TABS 1 po q 8 hours prn pain sparinly IBUPROFEN 800 MG TABS 489476 IBUPROFEN Inactive NYSTATIN-TRIAMCINOLONE 537623-7.1 UNIT/GM-% CREA apply bid 08/19 NYSTATIN-TRIAMCINOLONE 232666-0.1 UNIT/GM-% CREA 1155824 NYSTATIN- TRIAMCINOLONE Inactive AZITHROMYCIN 500 MG SOLR 1 po q day AZITHROMYCIN 500 MG SOLR 46608420052 AZITHROMYCIN Inactive VENTOLIN HFA 108 (90 BASE) MCG/ACT AERS 2 puffs four times a day PRN cough VENTOLIN HFA 108 (90 BASE) MCG/ACT AERS ALBUTEROL SULFATE Inactive LISINOPRIL 10 MG TABS 1/2-1 tab po every other day LISINOPRIL 10 MG TABS 800063 LISINOPRIL Inactive TUSSIONEX PENNKINETIC ER 10-8 MG/5ML LQCR 5ml po q12hr PRN Cough TUSSIONEX PENNKINETIC ER 10-8 MG/5ML LQCR HYDROCOD POLST- CHLORPHEN POLST Inactive PROMETHAZINE HCL 25 MG TABS 1 four times a day as needed for nausea/vomiting PROMETHAZINE HCL 25 MG TABS 429757 PROMETHAZINE HCL Inactive PREDNISONE 20 MG TAB 1 tablet twice daily for 2 days, then 1 tablet once daily for 2 days PREDNISONE 20 MG TAB 343346 PREDNISONE Inactive WARFARIN SODIUM 4 MG TABS 1 tab every evening WARFARIN SODIUM 4 MG TABS 062656 WARFARIN SODIUM Inactive LOMOTIL 2.5-0.025 MG TAB 1 to 2 four times a day as needed for diarrhea 10/13 LOMOTIL 2.5-0.025 MG TAB 8143186 DIPHENOXYLATE-ATROPINE Inactive IBUPROFEN 800 MG TABS 1 tab every 8 hours as needed IBUPROFEN 800 MG TABS 221858 IBUPROFEN Inactive PREDNISONE 20 MG TAB 2 tablets today, then 1 tablet days 2 through 4 PREDNISONE 20 MG TAB 545892 PREDNISONE Inactive GABAPENTIN 300 MG CAPS 1 po q hs for nerve pain GABAPENTIN 300 MG CAPS 829967 GABAPENTIN Inactive TRAMADOL HCL 50 MG TABS 1 po tid with ES Tylenol TRAMADOL HCL 50 MG TABS 174547 TRAMADOL HCL Inactive AZITHROMYCIN 250 MG TABS 2 po qd x 1 day, then 1 po qd x 4 days AZITHROMYCIN 250 MG TABS 6443604 AZITHROMYCIN Inactive AZITHROMYCIN 250 MG TABS 2 po qd x 1 day, then 1 po qd x 4 days AZITHROMYCIN 250 MG TABS 6780576 AZITHROMYCIN Inactive NYSTATIN-TRIAMCINOLONE 219698-1.1 UNIT/GM-% CREA Apply to area BID NYSTATIN-TRIAMCINOLONE 019609-1.1 UNIT/GM-% CREA 9368991 NYSTATIN-TRIAMCINOLONE Inactive AZITHROMYCIN 250 MG TABS 2 po qd x 1 day, then 1 po qd x 4 days AZITHROMYCIN 250 MG TABS 5953054 AZITHROMYCIN Inactive AZITHROMYCIN 250 MG TABS 2 po qd x 1 day, then 1 po qd x 4 days AZITHROMYCIN 250 MG TABS 5542764 AZITHROMYCIN Inactive AZITHROMYCIN 250 MG TABS 2 po qd x 1 day, then 1 po qd x 4 days AZITHROMYCIN 250 MG TABS 7979946 AZITHROMYCIN Inactive PREDNISONE 20 MG TAB 2 tabs daily for 3 days, 1 tab daily for 3 days, 1/2 tab daily for 2 days PREDNISONE 20 MG TAB 034850 PREDNISONE Inactive Advance Directives Directive Description Start [...] Panel - Chemistry sodium, serum 141 mmol/L 872-828 0454/01/24 potassium, serum 4.3 mmol/L 3.5-5.2 chloride, serum 103 mmol/L 98-107 carbon dioxide, venous blood 30.7 mmol/L 21.0-32.0 blood glucose 90 mg/dL 65-110 calcium, serum 8.5 mg/dL 8.5-10.1 urea nitrogen, blood 16 mg/dL 7-18 creatinine, serum 1.09 mg/dL 0.55-1.30 Lab Report: Comp. Metabolic Panel - Chemistry sodium, serum 141 mmol/L 343-973 3709/06/28 carbon dioxide, venous blood 31.0 mmol/L 21.0-32.0 [...] 1.0-3.5 Encounters Code Encounter Date Provider Facility CPT-48386 Level 3 Est. Patient 10:48:17 DIRECTOR SALES TRAINING Matthew Rangel MD [facility] CPT-22258 Level 4 Est. Patient 17:15:07 DIRECTOR SALES TRAINING Piotr Daley [facility] CPT-59845 Level 3 Est. Patient 12:46:13 DIRECTOR SALES TRAINING Piotr Daley [facility] CPT-72294 Level 3 Est. Patient 15:14:31 DIRECTOR SALES TRAINING Piotr Daley [facility] CPT-55788 Level 3 Est. Patient 09:20:13 DIRECTOR SALES TRAINING Piotr Daley [facility] CPT-58015 Level 3 Est. Patient 09:49:40 CDT Piotr Daley [facility] CPT-82002 Level 3 Est. Patient 16:28:11 CDT Piotr Daley [facility] CPT-05528 Level 3 Est. Patient 12:41:58 DIRECTOR SALES TRAINING Piotr Daley [facility] CPT-44501 Level 3 Est. Patient 09:21:24 CDT Piotr Daley [facility] CPT-71616 Level 3 Est. Patient 09:21:11 CDT Piotr Daley [facility] CPT-21558 Level 3 Est. Patient 11:16:29 DIRECTOR SALES TRAINING Piotr Daley [facility] CPT-43852 Level 3 Est. Patient 18:40:19 DIRECTOR SALES TRAINING Piotr Daley [facility] CPT-49254 Level 3 Est. Patient 19:30:50 CDT Piotr Daley [facility] CPT-64263 Level 3 Est. Patient 22:06:44 CDT Katrina Rinaldi MD PhD [facility] CPT-75417 Level 3 Est. Patient 14:20:00 CDT Piotr Daley [facility] CPT-30950 Level 3 Est. Patient 14:15:22 DIRECTOR SALES TRAINING Piotr Daley [facility] CPT-01771 Level 3 Est. Patient 20:19:57 DIRECTOR SALES TRAINING Piotr Daley [facility] CPT-28909 Level 3 Est. Patient 16:44:32 CDT Piotr Daley [facility] CPT-44106 Level 3 Est. Patient 08:48:46 DIRECTOR SALES TRAINING Piotr Daley [facility] CPT-06687 Level 3 Est. Patient 21:01:21 CDT Piotr Daley [facility] Procedures Code Procedure Name Date Entry Date Standard Description CPT-67449 BMP - LAB USE ONLY 17:19:11 DIRECTOR SALES TRAINING CPT-83014 PT/INR - LAB USE ONLY 17:19:10 DIRECTOR SALES TRAINING CPT-25269 Venipuncture Draw Fee 17:19:10 DIRECTOR SALES TRAINING CPT-45681 PT/INR - LAB USE ONLY 08:12:25 DIRECTOR SALES TRAINING CPT-95637 Venipuncture Draw Fee 08:12:24 DIRECTOR SALES TRAINING CPT-21265 Venipuncture Draw Fee 11:31:07 DIRECTOR SALES TRAINING CPT-94879 TPSA - LAB USE ONLY 11:31:07 DIRECTOR SALES TRAINING CPT-47333 PT/INR - LAB USE ONLY 11:31:07 DIRECTOR SALES TRAINING CPT-G0439 [facility] Annual Wellness Exam 09:59:29 DIRECTOR SALES TRAINING CPT-73917 Creatinine - LAB USE ONLY 14:37:55 DIRECTOR SALES TRAINING CPT-07926 PT/INR - LAB USE ONLY 14:37:55 DIRECTOR SALES TRAINING CPT-90112 Venipuncture Draw Fee 14:37:55 DIRECTOR SALES TRAINING CPT-29331 LS spine comp w obliques - XRAY USE ONLY 12:59:25 DIRECTOR SALES TRAINING CPT-09473 PT/INR - LAB USE ONLY 13:49:20 CDT CPT-51807 Venipuncture Draw Fee 13:49:19 CDT CPT-56604 PT/INR - LAB USE ONLY 15:48:49 CDT CPT-82551 Venipuncture Draw Fee 15:48:49 CDT CPT-23715 Venipuncture Draw Fee 11:31:59 CDT CPT-52769 PT/INR - LAB USE ONLY 11:31:59 CDT CPT-14456 Venipuncture Draw Fee 13:29:15 CDT CPT-79675 Thoracolumbar AP/Lat 15:19:19 DIRECTOR SALES TRAINING CPT-G0438 Initial Annual Wellness Exam 12:18:54 DIRECTOR SALES TRAINING CPT-29148 Knee 3V 09:57:38 CDT CPT-OV Office Visit 15:45:01 DIRECTOR SALES TRAINING CPT-74632 Abd compl w upright 17:10:25 CDT
--- OUTSIDE RECORDS SUMMARY | 2018-07-18 10:33 | XMS REPORT | Clinical Summary ---
Author Author Admin, YONG Organization [facility] Address Unknown Phone Unavailable Allergies, Adverse [...] 1 tablet days 2 through 4 PREDNISONE 63133460192 No Longer Active Piotr Daley DO Active AZITHROMYCIN 250 MG TABS 2 po qd x 1 day, then 1 po qd x 4 days AZITHROMYCIN 35170937315 No Longer Active Piotr Daley DO Active IBUPROFEN 800 MG TABS 1 tab every 8 hours as needed IBUPROFEN 25531563997 No Longer Active Piotr Daley DO Active LOMOTIL 2.5-0.025 MG TAB 1 to 2 four times a day as needed for diarrhea 10/13 DIPHENOXYLATE-ATROPINE 09973210712 No Longer Active Piotr Daley DO Active WARFARIN SODIUM 5 MG TABS 1 tablet daily except for Saturday and 04/09 tablet. WARFARIN SODIUM 99986969499 Active Piotr Daley DO Active WARFARIN SODIUM 4 MG TABS 1 tab every evening WARFARIN SODIUM 29214048239 No Longer Active Piotr Daley DO Active PREDNISONE 20 MG TAB 1 tablet twice daily for 2 days, then 1 tablet once daily for 2 days PREDNISONE 53909146808 No Longer Active Piotr Daley DO Active PROMETHAZINE HCL 25 MG TABS 1 four times a day as needed for nausea/vomiting PROMETHAZINE HCL 42338174217 No Longer Active Piotr Daley DO Active TUSSIONEX PENNKINETIC ER 10-8 MG/5ML LQCR 5ml po q12hr PRN Cough HYDROCOD POLST-CHLORPHEN POLST 60399876820 No Longer Active Piotr Daley DO Active AZITHROMYCIN 250 MG TABS 2 po qd x 1 day, then 1 po qd x 4 days AZITHROMYCIN 93990562191 No Longer Active Piotr Daley DO Active AZITHROMYCIN 250 MG TABS 2 po qd x 1 day, then 1 po qd x 4 days AZITHROMYCIN 10996559535 No Longer Active Piotr Daley DO Active LISINOPRIL-HYDROCHLOROTHIAZIDE 10-12.5 MG TABS 1 tab by mouth daily LISINOPRIL-HYDROCHLOROTHIAZIDE 64360914153 Active Piotr Daley DO Active LISINOPRIL 10 MG TABS 1/2-1 tab po every other day LISINOPRIL 42476810774 No Longer Active Piotr Daley DO Active VENTOLIN HFA 108 (90 BASE) MCG/ACT AERS 2 puffs four times a day PRN cough ALBUTEROL SULFATE 92972997944 No Longer Active Piotr Daley DO Active NYSTATIN-TRIAMCINOLONE 427576-1.1 UNIT/GM-% CREA Apply to area BID NYSTATIN-TRIAMCINOLONE 42545172329 No Longer Active Alena Chavira ASSOCIATE PROFESSOR OF KINESIOLOGY Active PHISOHEX 3 % LIQD Use Directed HEXACHLOROPHENE 83463079224 No Longer Active Sandra [place] Active AZITHROMYCIN 250 MG TABS 2 po qd x 1 day, then 1 po qd x 4 days AZITHROMYCIN 15892681811 No Longer Active Katrina Rinaldi MD PhD Active AZITHROMYCIN 250 MG TABS 2 po qd x 1 day, then 1 po qd x 4 days AZITHROMYCIN 84686417483 No Longer Active Piotr Daley DO Active AZITHROMYCIN 500 MG SOLR 1 po q day AZITHROMYCIN 61009787926 No Longer Active Piotr Daley DO Active NYSTATIN-TRIAMCINOLONE 802810-4.1 UNIT/GM-% CREA apply bid 08/19 NYSTATIN-TRIAMCINOLONE 19459864528 No Longer Active Piotr Daley DO Active IBUPROFEN 800 MG TABS 1 po q 8 hours prn pain sparinly IBUPROFEN 76348461569 No Longer Active Piotr Daley DO Active VITAMIN D3 5000 UNIT CAPS 1 po daily CHOLECALCIFEROL 21931321687 Active Piotr Daley DO Active IBUPROFEN 800 MG TABS 1 po q 8 hours prn pain sparinly IBUPROFEN 800 MG TABS 936198 IBUPROFEN Inactive NYSTATIN-TRIAMCINOLONE 264457-9.1 UNIT/GM-% CREA apply bid 08/19 NYSTATIN-TRIAMCINOLONE 739695-6.1 UNIT/GM-% CREA 1348557 NYSTATIN- TRIAMCINOLONE Inactive AZITHROMYCIN 500 MG SOLR 1 po q day AZITHROMYCIN 500 MG SOLR 441098 AZITHROMYCIN Inactive VENTOLIN HFA 108 (90 BASE) MCG/ACT AERS 2 puffs four times a day PRN cough VENTOLIN HFA 108 (90 BASE) MCG/ACT AERS ALBUTEROL SULFATE Inactive LISINOPRIL 10 MG TABS 1/2-1 tab po every other day LISINOPRIL 10 MG TABS 500489 LISINOPRIL Inactive TUSSIONEX PENNKINETIC ER 10-8 MG/5ML LQCR 5ml po q12hr PRN Cough TUSSIONEX PENNKINETIC ER 10-8 MG/5ML LQCR HYDROCOD POLST- CHLORPHEN POLST Inactive PROMETHAZINE HCL 25 MG TABS 1 four times a day as needed for nausea/vomiting PROMETHAZINE HCL 25 MG TABS 659182 PROMETHAZINE HCL Inactive PREDNISONE 20 MG TAB 1 tablet twice daily for 2 days, then 1 tablet once daily for 2 days PREDNISONE 20 MG TAB 724872 PREDNISONE Inactive WARFARIN SODIUM 4 MG TABS 1 tab every evening WARFARIN SODIUM 4 MG TABS 635884 WARFARIN SODIUM Inactive LOMOTIL 2.5-0.025 MG TAB 1 to 2 four times a day as needed for diarrhea 10/13 LOMOTIL 2.5-0.025 MG TAB 0789945 DIPHENOXYLATE-ATROPINE Inactive IBUPROFEN 800 MG TABS 1 tab every 8 hours as needed IBUPROFEN 800 MG TABS 991300 IBUPROFEN Inactive PREDNISONE 20 MG TAB 2 tablets today, then 1 tablet days 2 through 4 PREDNISONE 20 MG TAB 941319 PREDNISONE Inactive AZITHROMYCIN 250 MG TABS 2 po qd x 1 day, then 1 po qd x 4 days AZITHROMYCIN 250 MG TABS 8988577 AZITHROMYCIN Inactive AZITHROMYCIN 250 MG TABS 2 po qd x 1 day, then 1 po qd x 4 days AZITHROMYCIN 250 MG TABS 2703928 AZITHROMYCIN Inactive NYSTATIN-TRIAMCINOLONE 945636-5.1 UNIT/GM-% CREA Apply to area BID NYSTATIN-TRIAMCINOLONE 945236-7.1 UNIT/GM-% CREA 0304856 NYSTATIN-TRIAMCINOLONE Inactive AZITHROMYCIN 250 MG TABS 2 po qd x 1 day, then 1 po qd x 4 days AZITHROMYCIN 250 MG TABS 1410759 AZITHROMYCIN Inactive AZITHROMYCIN 250 MG TABS 2 po qd x 1 day, then 1 po qd x 4 days AZITHROMYCIN 250 MG TABS 3825678 AZITHROMYCIN Inactive AZITHROMYCIN 250 MG TABS 2 po qd x 1 day, then 1 po qd x 4 days AZITHROMYCIN 250 MG TABS 4405799 AZITHROMYCIN Inactive Vital Signs Date Name Value [...] ... - Chemistry sodium, serum 142 mmol/L 978-203 9745/12/01 potassium, serum 4.7 mmol/L 3.5-5.2 chloride, serum [...] 142-424 Encounters Code Encounter Date Provider Facility CPT-72264 Level 3 Est. Patient 09:49:40 CDT Piotr Daley [facility] CPT-18594 Level 3 Est. Patient 16:28:11 CDT Piotr Daley [facility] CPT-48041 Level 3 Est. Patient 12:41:58 DISK SHARPENER Piotr Katie Daley [facility] CPT-18026 Level 3 Est. Patient 09:21:24 CDT Piotr Daley [facility] CPT-87454 Level 3 Est. Patient 09:21:11 CDT Piotr Daley [facility] CPT-85907 Level 3 Est. Patient 11:16:29 DISK SHARPENER Piotr Daley [facility] CPT-45774 Level 3 Est. Patient 18:40:19 DISK SHARPENER Piotr Daley [facility] CPT-89555 Level 3 Est. Patient 19:30:50 CDT Piotr Daley [facility] CPT-55092 Level 3 Est. Patient 22:06:44 CDT Katrina Rinaldi MD [facility] CPT-96348 Level 3 Est. Patient 14:20:00 CDT Piotr Daley [facility] CPT-74790 Level 3 Est. Patient 14:15:22 DISK SHARPENER Piotr Daley [facility] CPT-12799 Level 3 Est. Patient 20:19:57 DISK SHARPENER Piotr Daley [facility] CPT-65946 Level 3 Est. Patient 16:44:32 CDT Piotr Daley [facility] CPT-08312 Level 3 Est. Patient 08:48:46 DISK SHARPENER Piotr Daley [facility] CPT-83911 Level 3 Est. Patient 21:01:21 CDT Piotr Daley [facility] Procedures Code Procedure Name Date Entry Date Standard Description CPT-58722 Knee 3V 09:57:38 CDT CPT-OV Office Visit 15:45:01 DISK SHARPENER CPT-32180 Abd compl w upright 17:10:25 CDT
--- OUTSIDE RECORDS SUMMARY | 2018-07-18 10:34 | XMS REPORT | Clinical Summary ---
Author Author Admin, E Organization [employer] Address Unknown Phone Unavailable Allergies, Adverse Reactions, [...] atherosclerosis of unspecified type of vessel, [place] or graft Back pain, [...] MG TABS 1 tablet daily WARFARIN SODIUM 95244411948 Active Emelyn Goode RPT,RMA Active TRAMADOL HCL 50 MG TABS 1 po tid with ES Tylenol TRAMADOL HCL 00072034841 Active Piotr Daley DO Active PREDNISONE 20 MG TAB 2 tablets today, then 1 tablet days 2 through 4 PREDNISONE 25351273983 No Longer Active Piotr Daley DO Active AZITHROMYCIN 250 MG TABS 2 po qd x 1 day, then 1 po qd x 4 days AZITHROMYCIN 64447488799 No Longer Active Piotr Daley DO Active IBUPROFEN 800 MG TABS 1 tab every 8 hours as needed IBUPROFEN 97558463710 No Longer Active Piotr Daley DO Active LOMOTIL 2.5-0.025 MG TAB 1 to 2 four times a day as needed for diarrhea 10/13 DIPHENOXYLATE-ATROPINE 39215034624 No Longer Active Piotr Daley DO Active WARFARIN SODIUM 4 MG TABS 1 tab every evening WARFARIN SODIUM 67417349286 No Longer Active Piotr Daley DO Active PREDNISONE 20 MG TAB 1 tablet twice daily for 2 days, then 1 tablet once daily for 2 days PREDNISONE 36136255852 No Longer Active Piotr Daley DO Active PROMETHAZINE HCL 25 MG TABS 1 four times a day as needed for nausea/vomiting PROMETHAZINE HCL 97368946966 No Longer Active Piotr Daley DO Active TUSSIONEX PENNKINETIC ER 10-8 MG/5ML LQCR 5ml po q12hr PRN Cough HYDROCOD POLST-CHLORPHEN POLST 35575505408 No Longer Active Piotr W Edi DO Active AZITHROMYCIN 250 MG TABS 2 po qd x 1 day, then 1 po qd x 4 days AZITHROMYCIN 97125529964 No Longer Active Piotr Daley DO Active AZITHROMYCIN 250 MG TABS 2 po qd x 1 day, then 1 po qd x 4 days AZITHROMYCIN 98545772416 No Longer Active Piotr Daley DO Active LISINOPRIL-HYDROCHLOROTHIAZIDE 10-12.5 MG TABS 1 tab by mouth daily LISINOPRIL-HYDROCHLOROTHIAZIDE 10008515092 Active Hilary Ma MA Active LISINOPRIL 10 MG TABS 1/2-1 tab po every other day LISINOPRIL 97088549153 No Longer Active Piotr Daley DO Active VENTOLIN HFA 108 (90 BASE) MCG/ACT AERS 2 puffs four times a day PRN cough ALBUTEROL SULFATE 38031030056 No Longer Active Piotr Daley DO Active NYSTATIN-TRIAMCINOLONE 885541-1.1 UNIT/GM-% CREA Apply to area BID NYSTATIN-TRIAMCINOLONE 62987327279 No Longer Active Alena Oswaldum CELERY PACKER Active PHISOHEX 3 % LIQD Use Directed HEXACHLOROPHENE 04410307529 No Longer Active Sandra [place] Active AZITHROMYCIN 250 MG TABS 2 po qd x 1 day, then 1 po qd x 4 days AZITHROMYCIN 76310859948 No Longer Active Katrina Rinaldi MD PhD Active AZITHROMYCIN 250 MG TABS 2 po qd x 1 day, then 1 po qd x 4 days AZITHROMYCIN 41465995623 No Longer Active Piotr Daley DO Active AZITHROMYCIN 500 MG SOLR 1 po q day AZITHROMYCIN 42464966021 No Longer Active Piotr Daley DO Active NYSTATIN-TRIAMCINOLONE 137216-0.1 UNIT/GM-% CREA apply bid 08/19 NYSTATIN-TRIAMCINOLONE 24002614411 No Longer Active Piotr Daley DO Active IBUPROFEN 800 MG TABS 1 po q 8 hours prn pain sparinly IBUPROFEN 47056852225 No Longer Active Piotr Daley DO Active VITAMIN D3 5000 UNIT CAPS 1 po daily CHOLECALCIFEROL 47570294667 Active Piotr Daley DO Active IBUPROFEN 800 MG TABS 1 po q 8 hours prn pain sparinly IBUPROFEN 800 MG TABS 778105 IBUPROFEN Inactive NYSTATIN-TRIAMCINOLONE 947072-9.1 UNIT/GM-% CREA apply bid 08/19 NYSTATIN-TRIAMCINOLONE 891865-3.1 UNIT/GM-% CREA 2329996 NYSTATIN- TRIAMCINOLONE Inactive AZITHROMYCIN 500 MG SOLR 1 po q day AZITHROMYCIN 500 MG SOLR 96954905409 AZITHROMYCIN Inactive VENTOLIN HFA 108 (90 BASE) MCG/ACT AERS 2 puffs four times a day PRN cough VENTOLIN HFA 108 (90 BASE) MCG/ACT AERS ALBUTEROL SULFATE Inactive LISINOPRIL 10 MG TABS 1/2-1 tab po every other day LISINOPRIL 10 MG TABS 286562 LISINOPRIL Inactive TUSSIONEX PENNKINETIC ER 10-8 MG/5ML LQCR 5ml po q12hr PRN Cough TUSSIONEX PENNKINETIC ER 10-8 MG/5ML LQCR HYDROCOD POLST- CHLORPHEN POLST Inactive PROMETHAZINE HCL 25 MG TABS 1 four times a day as needed for nausea/vomiting PROMETHAZINE HCL 25 MG TABS 338195 PROMETHAZINE HCL Inactive PREDNISONE 20 MG TAB 1 tablet twice daily for 2 days, then 1 tablet once daily for 2 days PREDNISONE 20 MG TAB 258374 PREDNISONE Inactive WARFARIN SODIUM 4 MG TABS 1 tab every evening WARFARIN SODIUM 4 MG TABS 783384 WARFARIN SODIUM Inactive LOMOTIL 2.5-0.025 MG TAB 1 to 2 four times a day as needed for diarrhea 10/13 LOMOTIL 2.5-0.025 MG TAB 4565034 DIPHENOXYLATE-ATROPINE Inactive IBUPROFEN 800 MG TABS 1 tab every 8 hours as needed IBUPROFEN 800 MG TABS 813171 IBUPROFEN Inactive PREDNISONE 20 MG TAB 2 tablets today, then 1 tablet days 2 through 4 PREDNISONE 20 MG TAB 793762 PREDNISONE Inactive AZITHROMYCIN 250 MG TABS 2 po qd x 1 day, then 1 po qd x 4 days AZITHROMYCIN 250 MG TABS 7551924 AZITHROMYCIN Inactive AZITHROMYCIN 250 MG TABS 2 po qd x 1 day, then 1 po qd x 4 days AZITHROMYCIN 250 MG TABS 8288887 AZITHROMYCIN Inactive NYSTATIN-TRIAMCINOLONE 982832-3.1 UNIT/GM-% CREA Apply to area BID NYSTATIN-TRIAMCINOLONE 693353-0.1 UNIT/GM-% CREA 6150719 NYSTATIN-TRIAMCINOLONE Inactive AZITHROMYCIN 250 MG TABS 2 po qd x 1 day, then 1 po qd x 4 days AZITHROMYCIN 250 MG TABS 2327554 AZITHROMYCIN Inactive AZITHROMYCIN 250 MG TABS 2 po qd x 1 day, then 1 po qd x 4 days AZITHROMYCIN 250 MG TABS 6819785 AZITHROMYCIN Inactive AZITHROMYCIN 250 MG TABS 2 po qd x 1 day, then 1 po qd x 4 days AZITHROMYCIN 250 MG TABS 0791640 AZITHROMYCIN Inactive Advance Directives Directive Description Start [...] Panel - Chemistry sodium, serum 141 mmol/L 415-901 6078/06/28 carbon dioxide, venous blood 31.0 mmol/L 21.0-32.0 [...] mg/g mg/g{creat} 0-29 sodium, serum 140 mmol/L 076-375 9906/07/17 potassium, serum 4.2 mmol/L 3.5-5.2 chloride, serum [...] 5.0-8.5 Encounters Code Encounter Date Provider Facility CPT-17123 Level 3 Est. Patient 15:14:31 QUALITY COORDINATOR Piotr Daley DO [facility] CPT-53368 Level 3 Est. Patient 09:20:13 QUALITY COORDINATOR Piotr Katie Daley [facility] CPT-63289 Level 3 Est. Patient 09:49:40 CDT Piotr Daley [facility] CPT-40536 Level 3 Est. Patient 16:28:11 CDT Piotr Daley [facility] CPT-78030 Level 3 Est. Patient 12:41:58 QUALITY COORDINATOR Piotr Daley [facility] CPT-50114 Level 3 Est. Patient 09:21:24 CDT Piotr Daley [facility] CPT-08586 Level 3 Est. Patient 09:21:11 CDT Piotr Daley [facility] CPT-37818 Level 3 Est. Patient 11:16:29 QUALITY COORDINATOR Piotr Daley [facility] CPT-82281 Level 3 Est. Patient 18:40:19 QUALITY COORDINATOR Piotr Daley [facility] CPT-00980 Level 3 Est. Patient 19:30:50 CDT Piotr Daley [facility] CPT-43333 Level 3 Est. Patient 22:06:44 CDT Katrina Rinaldi MD [facility] CPT-97495 Level 3 Est. Patient 14:20:00 CDT Piotr Daley [facility] CPT-21995 Level 3 Est. Patient 14:15:22 QUALITY COORDINATOR Piotr Daley [facility] CPT-88033 Level 3 Est. Patient 20:19:57 QUALITY COORDINATOR Piotr Daley [facility] CPT-10905 Level 3 Est. Patient 16:44:32 CDT Piotr Daley [facility] CPT-01322 Level 3 Est. Patient 08:48:46 QUALITY COORDINATOR Piotr Daley [facility] CPT-17017 Level 3 Est. Patient 21:01:21 CDT Piotr W Edi DO [facility] Procedures Code Procedure Name Date Entry Date Standard Description CPT-95486 Thoracolumbar AP/Lat 15:19:19 QUALITY COORDINATOR CPT-G0438 Initial Annual Wellness Exam 12:18:54 QUALITY COORDINATOR CPT-98348 Knee 3V 09:57:38 CDT CPT-OV Office Visit 15:45:01 QUALITY COORDINATOR CPT-65562 Abd compl w upright 17:10:25 CDT
--- OUTSIDE RECORDS SUMMARY | 2018-07-18 10:34 | XMS REPORT | Clinical Summary ---
Author Author Admin, YONG Organization [facility] Address Unknown Phone Unavailable Allergies, Adverse Reactions, [...] Generic Name NDC Status Provider Patient Instruction AZITHROMYCIN 250 MG TABS 2 po qd x 1 day, then 1 po qd x 4 days AZITHROMYCIN 78506420099 Active Piotr Daley DO Active IBUPROFEN 800 MG TABS 1 tab every 8 hours as needed IBUPROFEN 45243125183 No Longer Active Piotr Daley DO Active LOMOTIL 2.5-0.025 MG TAB 1 to 2 four times a day as needed for diarrhea 10/13 DIPHENOXYLATE-ATROPINE 25293466372 No Longer Active Piotr Daley DO Active WARFARIN SODIUM 5 MG TABS 1 tablet daily except for Saturday and Sat 1/2 tablet. WARFARIN SODIUM 31331323023 Active Piotr Daley DO Active WARFARIN SODIUM 4 MG TABS 1 tab every evening WARFARIN SODIUM 68688178301 No Longer Active Piotr Daley DO Active PREDNISONE 20 MG TAB 1 tablet twice daily for 2 days, then 1 tablet once daily for 2 days PREDNISONE 96377397490 No Longer Active Piotr Daley DO Active PROMETHAZINE HCL 25 MG TABS 1 four times a day as needed for nausea/vomiting PROMETHAZINE HCL 68503158455 No Longer Active Piotr Daley DO Active TUSSIONEX PENNKINETIC ER 10-8 MG/5ML LQCR 5ml po q12hr PRN Cough HYDROCOD POLST-CHLORPHEN POLST 06989178224 No Longer Active Piotr Daley DO Active AZITHROMYCIN 250 MG TABS 2 po qd x 1 day, then 1 po qd x 4 days AZITHROMYCIN 08084976444 No Longer Active Piotr Daley DO Active AZITHROMYCIN 250 MG TABS 2 po qd x 1 day, then 1 po qd x 4 days AZITHROMYCIN 82385766572 No Longer Active Piotr Daley DO Active LISINOPRIL-HYDROCHLOROTHIAZIDE 10-12.5 MG TABS 1 tab by mouth daily LISINOPRIL-HYDROCHLOROTHIAZIDE 52309774674 Active Piotr Daley DO Active LISINOPRIL 10 MG TABS 1/2-1 tab po every other day LISINOPRIL 41171340450 No Longer Active Piotr Daley DO Active VENTOLIN HFA 108 (90 BASE) MCG/ACT AERS 2 puffs four times a day PRN cough ALBUTEROL SULFATE 71193849821 No Longer Active Piotr Daley DO Active NYSTATIN-TRIAMCINOLONE 877142-9.1 UNIT/GM-% CREA Apply to area BID NYSTATIN-TRIAMCINOLONE 39863752250 No Longer Active Alena Chavira BIOTECHNICIAN Active PHISOHEX 3 % LIQD Use Directed HEXACHLOROPHENE 56710737981 No Longer Active Sandra [place] Active AZITHROMYCIN 250 MG TABS 2 po qd x 1 day, then 1 po qd x 4 days AZITHROMYCIN 42792828498 No Longer Active Katrina Rinaldi MD PhD Active AZITHROMYCIN 250 MG TABS 2 po qd x 1 day, then 1 po qd x 4 days AZITHROMYCIN 12429381121 No Longer Active Piotr Daley DO Active AZITHROMYCIN 500 MG SOLR 1 po q day AZITHROMYCIN 72649183798 No Longer Active Piotr Daley DO Active NYSTATIN-TRIAMCINOLONE 764715-3.1 UNIT/GM-% CREA apply bid 08/19 NYSTATIN-TRIAMCINOLONE 09293124940 No Longer Active Piotr Daley DO Active IBUPROFEN 800 MG TABS 1 po q 8 hours prn pain sparinly IBUPROFEN 61514887001 No Longer Active Piotr Daley DO Active VITAMIN D3 5000 UNIT CAPS 1 po daily CHOLECALCIFEROL 95487163856 Active Piotr Daley DO Active IBUPROFEN 800 MG TABS 1 po q 8 hours prn pain sparinly IBUPROFEN 800 MG TABS 886803 IBUPROFEN Inactive NYSTATIN-TRIAMCINOLONE 791949-2.1 UNIT/GM-% CREA apply bid 08/19 NYSTATIN-TRIAMCINOLONE 312758-8.1 UNIT/GM-% CREA 0260254 NYSTATIN- TRIAMCINOLONE Inactive AZITHROMYCIN 500 MG SOLR 1 po q day AZITHROMYCIN 500 MG SOLR 523199 AZITHROMYCIN Inactive VENTOLIN HFA 108 (90 BASE) MCG/ACT AERS 2 puffs four times a day PRN cough VENTOLIN HFA 108 (90 BASE) MCG/ACT AERS ALBUTEROL SULFATE Inactive LISINOPRIL 10 MG TABS 1/2-1 tab po every other day LISINOPRIL 10 MG TABS 839042 LISINOPRIL Inactive TUSSIONEX PENNKINETIC ER 10-8 MG/5ML LQCR 5ml po q12hr PRN Cough TUSSIONEX PENNKINETIC ER 10-8 MG/5ML LQCR HYDROCOD POLST- CHLORPHEN POLST Inactive PROMETHAZINE HCL 25 MG TABS 1 four times a day as needed for nausea/vomiting PROMETHAZINE HCL 25 MG TABS 681588 PROMETHAZINE HCL Inactive PREDNISONE 20 MG TAB 1 tablet twice daily for 2 days, then 1 tablet once daily for 2 days PREDNISONE 20 MG TAB 416668 PREDNISONE Inactive WARFARIN SODIUM 4 MG TABS 1 tab every evening WARFARIN SODIUM 4 MG TABS 587350 WARFARIN SODIUM Inactive LOMOTIL 2.5-0.025 MG TAB 1 to 2 four times a day as needed for diarrhea 10/13 LOMOTIL 2.5-0.025 MG TAB 6429674 DIPHENOXYLATE-ATROPINE Inactive IBUPROFEN 800 MG TABS 1 tab every 8 hours as needed IBUPROFEN 800 MG TABS 491293 IBUPROFEN Inactive AZITHROMYCIN 250 MG TABS 2 po qd x 1 day, then 1 po qd x 4 days AZITHROMYCIN 250 MG TABS 1573844 AZITHROMYCIN Inactive AZITHROMYCIN 250 MG TABS 2 po qd x 1 day, then 1 po qd x 4 days AZITHROMYCIN 250 MG TABS 9351895 AZITHROMYCIN Inactive NYSTATIN-TRIAMCINOLONE 290321-1.1 UNIT/GM-% CREA Apply to area BID NYSTATIN-TRIAMCINOLONE 087905-4.1 UNIT/GM-% CREA 0552454 NYSTATIN-TRIAMCINOLONE Inactive AZITHROMYCIN 250 MG TABS 2 po qd x 1 day, then 1 po qd x 4 days AZITHROMYCIN 250 MG TABS 3217206 AZITHROMYCIN Inactive AZITHROMYCIN 250 MG TABS 2 po qd x 1 day, then 1 po qd x 4 days AZITHROMYCIN 250 MG TABS 9762498 AZITHROMYCIN Inactive Vital Signs Date Name Value [...] ... - Chemistry sodium, serum 142 mmol/L 798-360 4182/12/01 potassium, serum 4.7 mmol/L 3.5-5.2 chloride, serum [...] 142-424 Encounters Code Encounter Date Provider Facility CPT-08840 Level 3 Est. Patient 16:28:11 CDT Piotr Daley [facility] CPT-40216 Level 3 Est. Patient 12:41:58 BEAD WIRE TAPER Piotr Daley [facility] CPT-46541 Level 3 Est. Patient 09:21:24 CDT Piotr Daley [facility] CPT-90460 Level 3 Est. Patient 09:21:11 CDT Piotr Daley [facility] CPT-83301 Level 3 Est. Patient 11:16:29 BEAD WIRE TAPER Piotr Daley [facility] CPT-06882 Level 3 Est. Patient 18:40:19 BEAD WIRE TAPER Piotr Daley [facility] CPT-88360 Level 3 Est. Patient 19:30:50 CDT Piotr Daley [facility] CPT-56411 Level 3 Est. Patient 22:06:44 CDT Katrina Rinaldi MD PhD [facility] CPT-52409 Level 3 Est. Patient 14:20:00 CDT Piotr Daley [facility] CPT-49462 Level 3 Est. Patient 14:15:22 BEAD WIRE TAPER Piotr Daley [facility] CPT-24172 Level 3 Est. Patient 20:19:57 BEAD WIRE TAPER Piotr Daley [facility] CPT-76619 Level 3 Est. Patient 16:44:32 CDT Piotr Daley [facility] CPT-54214 Level 3 Est. Patient 08:48:46 BEAD WIRE TAPER Piotr Daley [facility] CPT-76555 Level 3 Est. Patient 21:01:21 CDT Piotr Daley [facility] Procedures Code Procedure Name Date Entry Date Standard Description CPT-OV Office Visit 15:45:01 BEAD WIRE TAPER CPT-91323 Abd compl w upright 17:10:25 CDT
[2018-07-18 10:35] VITALS: BP 127/64
--- OUTSIDE RECORDS SUMMARY | 2018-07-18 10:35 | XMS REPORT | Clinical Summary ---
Author Author Admin, E Organization [employer] Address Unknown Phone Unavailable Allergies, Adverse [...] hypertension FLANK PAIN, RIGHT 789.09 Resolved Katrina Rianldi MD PhD Abdominal pain, other specified site; [...] neoplasm of prostate V10.46 Active Alina Meyers CONTROL TECHNICIAN Personal history of malignant neoplasm of prostate Coronary artery disease 414.00 Active Alina Luigi CONTROL TECHNICIAN Coronary atherosclerosis of unspecified type of vessel, [place] or graft Back pain, thoracic region, [...] po tid with ES Tylenol TRAMADOL HCL 90494321764 Active Piotr Daley DO Active WARFARIN SODIUM 5 MG TABS 1 tablet daily except for Saturday and Sat 1/2 tablet. WARFARIN SODIUM 12869851345 Active Hilary Ma MA Active PREDNISONE 20 MG TAB 2 tablets today, then 1 tablet days 2 through 4 PREDNISONE 38856063326 No Longer Active Piotr Daley DO Active AZITHROMYCIN 250 MG TABS 2 po qd x 1 day, then 1 po qd x 4 days AZITHROMYCIN 35325044631 No Longer Active Piotr Daley DO Active IBUPROFEN 800 MG TABS 1 tab every 8 hours as needed IBUPROFEN 29569497013 No Longer Active Piotr Daley DO Active LOMOTIL 2.5-0.025 MG TAB 1 to 2 four times a day as needed for diarrhea 10/13 DIPHENOXYLATE-ATROPINE 18200416018 No Longer Active Piotr Daley DO Active WARFARIN SODIUM 4 MG TABS 1 tab every evening WARFARIN SODIUM 16689272622 No Longer Active Piotr Daley DO Active PREDNISONE 20 MG TAB 1 tablet twice daily for 2 days, then 1 tablet once daily for 2 days PREDNISONE 40138975206 No Longer Active Piotr Daley DO Active PROMETHAZINE HCL 25 MG TABS 1 four times a day as needed for nausea/vomiting PROMETHAZINE HCL 37125403431 No Longer Active Piotr Daley DO Active TUSSIONEX PENNKINETIC ER 10-8 MG/5ML LQCR 5ml po q12hr PRN Cough HYDROCOD POLST-CHLORPHEN POLST 10229286938 No Longer Active Piotr Daley DO Active AZITHROMYCIN 250 MG TABS 2 po qd x 1 day, then 1 po qd x 4 days AZITHROMYCIN 94571706373 No Longer Active Piotr Daley DO Active AZITHROMYCIN 250 MG TABS 2 po qd x 1 day, then 1 po qd x 4 days AZITHROMYCIN 10641870365 No Longer Active Piotr Daley DO Active LISINOPRIL-HYDROCHLOROTHIAZIDE 10-12.5 MG TABS 1 tab by mouth daily LISINOPRIL-HYDROCHLOROTHIAZIDE 13879543910 Active Hilary Ma MA Active LISINOPRIL 10 MG TABS 1/2-1 tab po every other day LISINOPRIL 41823909293 No Longer Active Piotr Daley DO Active VENTOLIN HFA 108 (90 BASE) MCG/ACT AERS 2 puffs four times a day PRN cough ALBUTEROL SULFATE 17952443922 No Longer Active Piotr Daley DO Active NYSTATIN-TRIAMCINOLONE 563133-7.1 UNIT/GM-% CREA Apply to area BID NYSTATIN-TRIAMCINOLONE 96221875150 No Longer Active Alena Chavira BRUSHING OPERATOR Active PHISOHEX 3 % LIQD Use Directed HEXACHLOROPHENE 50067051743 No Longer Active Sandra [place] Active AZITHROMYCIN 250 MG TABS 2 po qd x 1 day, then 1 po qd x 4 days AZITHROMYCIN 38045227386 No Longer Active Katrina Rinaldi MD PhD Active AZITHROMYCIN 250 MG TABS 2 po qd x 1 day, then 1 po qd x 4 days AZITHROMYCIN 44562329751 No Longer Active Piotr Daley DO Active AZITHROMYCIN 500 MG SOLR 1 po q day AZITHROMYCIN 40809258479 No Longer Active Piotr Daley DO Active NYSTATIN-TRIAMCINOLONE 394275-6.1 UNIT/GM-% CREA apply bid 08/19 NYSTATIN-TRIAMCINOLONE 33972391307 No Longer Active Piotr Daley DO Active IBUPROFEN 800 MG TABS 1 po q 8 hours prn pain sparinly IBUPROFEN 65660876962 No Longer Active Piotr Daley DO Active VITAMIN D3 5000 UNIT CAPS 1 po daily CHOLECALCIFEROL 60962819522 Active Piotr Daley DO Active IBUPROFEN 800 MG TABS 1 po q 8 hours prn pain sparinly IBUPROFEN 800 MG TABS 108436 IBUPROFEN Inactive NYSTATIN-TRIAMCINOLONE 291550-5.1 UNIT/GM-% CREA apply bid 08/19 NYSTATIN-TRIAMCINOLONE 103312-0.1 UNIT/GM-% CREA 8713035 NYSTATIN- TRIAMCINOLONE Inactive AZITHROMYCIN 500 MG SOLR 1 po q day AZITHROMYCIN 500 MG SOLR 67507897513 AZITHROMYCIN Inactive VENTOLIN HFA 108 (90 BASE) MCG/ACT AERS 2 puffs four times a day PRN cough VENTOLIN HFA 108 (90 BASE) MCG/ACT AERS ALBUTEROL SULFATE Inactive LISINOPRIL 10 MG TABS 1/2-1 tab po every other day LISINOPRIL 10 MG TABS 237034 LISINOPRIL Inactive TUSSIONEX PENNKINETIC ER 10-8 MG/5ML LQCR 5ml po q12hr PRN Cough TUSSIONEX PENNKINETIC ER 10-8 MG/5ML LQCR HYDROCOD POLST- CHLORPHEN POLST Inactive PROMETHAZINE HCL 25 MG TABS 1 four times a day as needed for nausea/vomiting PROMETHAZINE HCL 25 MG TABS 121079 PROMETHAZINE HCL Inactive PREDNISONE 20 MG TAB 1 tablet twice daily for 2 days, then 1 tablet once daily for 2 days PREDNISONE 20 MG TAB 478312 PREDNISONE Inactive WARFARIN SODIUM 4 MG TABS 1 tab every evening WARFARIN SODIUM 4 MG TABS 541306 WARFARIN SODIUM Inactive LOMOTIL 2.5-0.025 MG TAB 1 to 2 four times a day as needed for diarrhea 10/13 LOMOTIL 2.5-0.025 MG TAB 9443800 DIPHENOXYLATE-ATROPINE Inactive IBUPROFEN 800 MG TABS 1 tab every 8 hours as needed IBUPROFEN 800 MG TABS 267674 IBUPROFEN Inactive PREDNISONE 20 MG TAB 2 tablets today, then 1 tablet days 2 through 4 PREDNISONE 20 MG TAB 497887 PREDNISONE Inactive AZITHROMYCIN 250 MG TABS 2 po qd x 1 day, then 1 po qd x 4 days AZITHROMYCIN 250 MG TABS 6310911 AZITHROMYCIN Inactive AZITHROMYCIN 250 MG TABS 2 po qd x 1 day, then 1 po qd x 4 days AZITHROMYCIN 250 MG TABS 7599668 AZITHROMYCIN Inactive NYSTATIN-TRIAMCINOLONE 647411-9.1 UNIT/GM-% CREA Apply to area BID NYSTATIN-TRIAMCINOLONE 946281-7.1 UNIT/GM-% CREA 2681045 NYSTATIN-TRIAMCINOLONE Inactive AZITHROMYCIN 250 MG TABS 2 po qd x 1 day, then 1 po qd x 4 days AZITHROMYCIN 250 MG TABS 4044255 AZITHROMYCIN Inactive AZITHROMYCIN 250 MG TABS 2 po qd x 1 day, then 1 po qd x 4 days AZITHROMYCIN 250 MG TABS 2786823 AZITHROMYCIN Inactive AZITHROMYCIN 250 MG TABS 2 po qd x 1 day, then 1 po qd x 4 days AZITHROMYCIN 250 MG TABS 2521038 AZITHROMYCIN Inactive Advance Directives Directive Description Start [...] mg/g mg/g{creat} 0-29 sodium, serum 140 mmol/L 833-815 5747/07/17 potassium, serum 4.2 mmol/L 3.5-5.2 chloride, serum [...] ratio (INR) 2.2 1.0-3.5 prothrombin time (patient) 16.5 SECS s [...] 5.0-8.5 Encounters Code Encounter Date Provider Facility CPT-64818 Level 3 Est. Patient 15:14:31 MULTI SENSOR OPERATOR Piotr Daley [facility] CPT-68056 Level 3 Est. Patient 09:20:13 MULTI SENSOR OPERATOR Piotr Daley [facility] CPT-75610 Level 3 Est. Patient 09:49:40 CDT Piotr Wilson [facility] CPT-76665 Level 3 Est. Patient 16:28:11 CDT Piotr Daley [facility] CPT-20166 Level 3 Est. Patient 12:41:58 MULTI SENSOR OPERATOR Piotr Daley [facility] CPT-54302 Level 3 Est. Patient 09:21:24 CDT Piotr Wilson [facility] CPT-57523 Level 3 Est. Patient 09:21:11 CDT Piotr W Edi [facility] CPT-38946 Level 3 Est. Patient 11:16:29 MULTI SENSOR OPERATOR Piotr Daley [facility] CPT-71276 Level 3 Est. Patient 18:40:19 MULTI SENSOR OPERATOR Piotr Daley [facility] CPT-81640 Level 3 Est. Patient 19:30:50 CDT Piotr Daley [facility] CPT-42281 Level 3 Est. Patient 22:06:44 CDT Katrina Rinaldi MD PhD [facility] CPT-26181 Level 3 Est. Patient 14:20:00 CDT Piotr Daley [facility] CPT-11309 Level 3 Est. Patient 14:15:22 MULTI SENSOR OPERATOR Piotr Daley [facility] CPT-03659 Level 3 Est. Patient 20:19:57 MULTI SENSOR OPERATOR Piotr Daley [facility] CPT-95797 Level 3 Est. Patient 16:44:32 CDT Piotr Daley [facility] CPT-69719 Level 3 Est. Patient 08:48:46 MULTI SENSOR OPERATOR Piotr Daley [facility] CPT-55587 Level 3 Est. Patient 21:01:21 CDT Piotr Wilson [facility] Procedures Code Procedure Name Date Entry Date Standard Description CPT-53164 Thoracolumbar AP/Lat 15:19:19 MULTI SENSOR OPERATOR CPT-G0438 Initial Annual Wellness Exam 12:18:54 MULTI SENSOR OPERATOR CPT-07474 Knee 3V 09:57:38 CDT CPT-OV Office Visit 15:45:01 MULTI SENSOR OPERATOR CPT-23835 Abd compl w upright 17:10:25 CDT
--- OUTSIDE RECORDS SUMMARY | 2018-07-18 10:36 | XMS REPORT | Clinical Summary ---
Author Author Admin, [facility] Organization [employer] Address Unknown Phone Unavailable Allergies, Adverse Reactions, [...] Sirisha Gustavo LOO Seborrheic keratosis ICD-702.19 Inactive Isrisha Gustavo LOO Bronchitis-Acute ICD-466.0 Inactive Piotr Daley DO Leg pain, right ICD-729.5 Inactive Sirisha Gustavo LOO Right leg pain ICD-729.5 Inactive Sirisha Gustavo LOO Bronchitis-Acute ICD-466.0 Inactive Sirisha Gustavo LOO Knee pain, left ICD-719.46 Inactive Sirisha Chen [employer] Actinic keratoses ICD-702.0 Inactive Sirisha Chen [employer] Back pain, thoracic region, left ICD-724.1 Inactive Piotr Daley DO Thoracic back pain ICD-724.5 Inactive Sirisha Chen [employer] Back pain lumbar ICD-724.2 Inactive Sirisha Chen [employer] Insect bite ICD-919.4 Inactive Sirisha Chen [employer] Pruritus ICD-698.9 Inactive Sirisha Chen [employer] 04/09 Bronchitis-Acute ICD-466.0 Inactive Sirisha Chen [employer] Dyspnea ICD-786.09 Inactive Sirisha Chen [employer] 05/09 Medication List Medication Instructions Start Date Stop Date Generic Name NDC Status Provider Patient Instruction WARFARIN SODIUM 4 MG ORAL TABLET 1 tablet by mouth daily except 2mg on Saturday and Saturday WARFARIN SODIUM 42794563016 Active Anahy Loja Active MELOXICAM 15 MG ORAL TABLET 1 po q day for pain with food MELOXICAM 33670864784 Active Piotr Daley DO Active PREDNISONE 10 MG ORAL TABLET 1 tablet by mouth daily PREDNISONE 01604160328 No Longer Active Emelyn Norris Active TESSALON PERLES 100 MG ORAL CAPSULE 1-2 tablet by mouth 3 times daily 04/16 BENZONATATE 84842007388 No Longer Active Emelyn Norris Active PREDNISONE 20 MG ORAL TABLET two tabs by mouth today, then one tab by mouth days two and three PREDNISONE 17009525088 No Longer Active Piotr W Edi DO Active CYCLOBENZAPRINE HCL 10 MG ORAL TABLET 1 tablet by mouth three times daily as needed for muscle spasm/pain CYCLOBENZAPRINE HCL 80101414707 Active Piotr Daley DO Active ZITHROMAX 250 MG ORAL TABLET Take two (2 ) tablets day one, then one (1) tablet a day for four (4) more days AZITHROMYCIN 06419540774 No Longer Active Piotr Daley DO Active PROAIR HFA 108 (90 BASE) MCG/ACT INHALATION AEROSOL SOLUTION 1-2 puffs four times a day as needed ALBUTEROL SULFATE 23136512660 No Longer Active Emelyn Norris Active DOXYCYCLINE HYCLATE 100 MG ORAL CAPSULE 1 cap by mouth BID x10 days DOXYCYCLINE HYCLATE 63059128110 No Longer Active Nella Harris APRN Active PREDNISONE 20 MG ORAL TABLET 2 tabs daily for 3 days, 1 tab daily for 3 days, 1/2 tab daily for 2 days PREDNISONE 84409794511 No Longer Active Matthew Rangel MD Active TRAMADOL HCL 50 MG ORAL TABLET 1 po tid with ES Tylenol TRAMADOL HCL 38144116147 No Longer Active Matthew Rangel MD Active GABAPENTIN 300 MG ORAL CAPSULE 1 po q hs for nerve pain GABAPENTIN 01685499393 No Longer Active Matthew Rangel MD Active PREDNISONE 20 MG ORAL TABLET 2 tablets today, then 1 tablet days 2 through 4 PREDNISONE 77713835507 No Longer Active Piotr Daley DO Active AZITHROMYCIN 250 MG ORAL TABLET 2 po qd x 1 day, then 1 po qd x 4 days 07/12 AZITHROMYCIN 71602433016 No Longer Active Piotr Daley DO Active IBUPROFEN 800 MG ORAL TABLET 1 tab every 8 hours as needed 07/12 IBUPROFEN 17547948517 No Longer Active Piotr Daley DO Active LOMOTIL 2.5-0.025 MG ORAL TABLET 1 to 2 four times a day as needed for diarrhea DIPHENOXYLATE-ATROPINE 32803207286 No Longer Active Piotr W Edi DO Active WARFARIN SODIUM 4 MG ORAL TABLET 1 tab every evening WARFARIN SODIUM 73145384789 No Longer Active Piotr Daley DO Active PREDNISONE 20 MG ORAL TABLET 1 tablet twice daily for 2 days, then 1 tablet once daily for 2 days PREDNISONE 94177909021 No Longer Active Piotr Daley DO Active PROMETHAZINE HCL 25 MG ORAL TABLET 1 four times a day as needed for nausea/ vomiting PROMETHAZINE HCL 37884306624 No Longer Active Piotr Daely DO Active TUSSIONEX PENNKINETIC ER 10-8 MG/5ML ORAL SUSPENSION EXTENDED RELEASE 5ml po q12hr PRN Cough HYDROCOD POLST-CHLORPHEN POLST 24399914989 No Longer Active Piotr Daley DO Active AZITHROMYCIN 250 MG ORAL TABLET 2 po qd x 1 day, then 1 po qd x 4 days 10/13 AZITHROMYCIN 89323324574 No Longer Active Piotr Daley DO Active AZITHROMYCIN 250 MG ORAL TABLET 2 po qd x 1 day, then 1 po qd x 4 days 05/07 AZITHROMYCIN 84350538993 No Longer Active Piotr Daley DO Active LISINOPRIL-HYDROCHLOROTHIAZIDE 10-12.5 MG ORAL TABLET 1 tab by mouth daily LISINOPRIL-HYDROCHLOROTHIAZIDE 45232140649 Active Piotr Daley DO Active LISINOPRIL 10 MG ORAL TABLET 1/2-1 tab po every other day LISINOPRIL 36098333740 No Longer Active Piotr Daley DO Active VENTOLIN HFA 108 (90 Base) MCG/ACT INHALATION AEROSOL SOLUTION 2 puffs four times a day PRN cough ALBUTEROL SULFATE 75508399839 No Longer Active Piotr Daley DO Active NYSTATIN-TRIAMCINOLONE 452252-0.1 UNIT/GM-% EXTERNAL CREAM Apply to area BID NYSTATIN-TRIAMCINOLONE 28232092197 No Longer Active Alena Chavira [employer] Active PHISOHEX 3 % LIQD Use Directed HEXACHLOROPHENE 40734702515 No Longer Active Sandra [place] Active AZITHROMYCIN 250 MG ORAL TABLET 2 po qd x 1 day, then 1 po qd x 4 days 10/21 AZITHROMYCIN 51655032434 No Longer Active Katrina Rinaldi MD PhD Active AZITHROMYCIN 250 MG ORAL TABLET 2 po qd x 1 day, then 1 po qd x 4 days 10/16 AZITHROMYCIN 68805807202 No Longer Active Piotr Daley DO Active AZITHROMYCIN 500 MG INTRAVENOUS SOLUTION RECONSTITUTED 1 po q day AZITHROMYCIN 08801969407 No Longer Active Piotr Daley DO Active NYSTATIN-TRIAMCINOLONE 236416-6.1 UNIT/GM-% EXTERNAL CREAM apply bid NYSTATIN-TRIAMCINOLONE 87412638702 No Longer Active Piotr Daley DO Active IBUPROFEN 800 MG ORAL TABLET 1 po q 8 hours prn pain sparinly IBUPROFEN 76844921670 No Longer Active Poitr Daley DO Active VITAMIN D3 5000 UNIT ORAL CAPSULE 1 po daily CHOLECALCIFEROL 55755407337 Active Piotr Daley DO Active IBUPROFEN 800 MG ORAL TABLET 1 po q 8 hours prn pain sparinly IBUPROFEN 800 MG ORAL TABLET 434501 IBUPROFEN Inactive NYSTATIN-TRIAMCINOLONE 003754-0.1 UNIT/GM-% EXTERNAL CREAM apply bid NYSTATIN-TRIAMCINOLONE 004352-9.1 UNIT/GM-% EXTERNAL CREAM 3993229 NYSTATIN-TRIAMCINOLONE Inactive AZITHROMYCIN 500 MG INTRAVENOUS SOLUTION RECONSTITUTED 1 po q day AZITHROMYCIN 500 MG INTRAVENOUS SOLUTION RECONSTITUTED 86672289113 AZITHROMYCIN Inactive VENTOLIN HFA 108 (90 Base) MCG/ACT INHALATION AEROSOL SOLUTION 2 puffs four times a day PRN cough VENTOLIN HFA 108 (90 Base) MCG/ ACT INHALATION AEROSOL SOLUTION ALBUTEROL SULFATE Inactive LISINOPRIL 10 MG ORAL TABLET 1/2-1 tab po every other day LISINOPRIL 10 MG ORAL TABLET 484720 LISINOPRIL Inactive TUSSIONEX PENNKINETIC ER 10-8 MG/5ML ORAL SUSPENSION EXTENDED RELEASE 5ml po q12hr PRN Cough TUSSIONEX PENNKINETIC ER 10-8 MG/5ML ORAL SUSPENSION EXTENDED RELEASE HYDROCOD POLST-CHLORPHEN POLST Inactive PROMETHAZINE HCL 25 MG ORAL TABLET 1 four times a day as needed for nausea/ vomiting PROMETHAZINE HCL 25 MG ORAL TABLET 399931 PROMETHAZINE HCL Inactive PREDNISONE 20 MG ORAL TABLET 1 tablet twice daily for 2 days, then 1 tablet once daily for 2 days PREDNISONE 20 MG ORAL TABLET 118417 PREDNISONE Inactive WARFARIN SODIUM 4 MG ORAL TABLET 1 tab every evening WARFARIN SODIUM 4 MG ORAL TABLET 545626 WARFARIN SODIUM Inactive LOMOTIL 2.5-0.025 MG ORAL TABLET 1 to 2 four times a day as needed for diarrhea LOMOTIL 2.5-0.025 MG ORAL TABLET 5338625 DIPHENOXYLATE-ATROPINE Inactive IBUPROFEN 800 MG ORAL TABLET 1 tab every 8 hours as needed 07/12 IBUPROFEN 800 MG ORAL TABLET 119656 IBUPROFEN Inactive PREDNISONE 20 MG ORAL TABLET 2 tablets today, then 1 tablet days 2 through 4 PREDNISONE 20 MG ORAL TABLET 036291 PREDNISONE Inactive GABAPENTIN 300 MG ORAL CAPSULE 1 po q hs for nerve pain GABAPENTIN 300 MG ORAL CAPSULE 766813 GABAPENTIN Inactive TRAMADOL HCL 50 MG ORAL TABLET 1 po tid with ES Tylenol TRAMADOL HCL 50 MG ORAL TABLET 055422 TRAMADOL HCL Inactive PROAIR HFA 108 (90 BASE) MCG/ACT INHALATION AEROSOL SOLUTION 1-2 puffs four times a day as needed PROAIR HFA 108 (90 BASE) MCG/ACT INHALATION AEROSOL SOLUTION ALBUTEROL SULFATE Inactive PREDNISONE 20 MG ORAL TABLET two tabs by mouth today, then one tab by mouth days two and three PREDNISONE 20 MG ORAL TABLET 774956 PREDNISONE Inactive TESSALON PERLES 100 MG ORAL CAPSULE 1-2 tablet by mouth 3 times daily 04/16 TESSALON PERLES 100 MG ORAL CAPSULE 030543 BENZONATATE Inactive PREDNISONE 10 MG ORAL TABLET 1 tablet by mouth daily PREDNISONE 10 MG ORAL TABLET 560410 PREDNISONE Inactive AZITHROMYCIN 250 MG ORAL TABLET 2 po qd x 1 day, then 1 po qd x 4 days 10/16 AZITHROMYCIN 250 MG ORAL TABLET 545354 AZITHROMYCIN Inactive AZITHROMYCIN 250 MG ORAL TABLET 2 po qd x 1 day, then 1 po qd x 4 days 10/21 AZITHROMYCIN 250 MG ORAL TABLET 579699 AZITHROMYCIN Inactive NYSTATIN-TRIAMCINOLONE 831547-6.1 UNIT/GM-% EXTERNAL CREAM Apply to area BID NYSTATIN-TRIAMCINOLONE 968861-5.1 UNIT/GM-% EXTERNAL CREAM 2587362 NYSTATIN-TRIAMCINOLONE Inactive AZITHROMYCIN 250 MG ORAL TABLET 2 po qd x 1 day, then 1 po qd x 4 days 05/07 AZITHROMYCIN 250 MG ORAL TABLET 318370 AZITHROMYCIN Inactive AZITHROMYCIN 250 MG ORAL TABLET 2 po qd x 1 day, then 1 po qd x 4 days 10/13 AZITHROMYCIN 250 MG ORAL TABLET 922528 AZITHROMYCIN Inactive AZITHROMYCIN 250 MG ORAL TABLET 2 po qd x 1 day, then 1 po qd x 4 days 07/12 AZITHROMYCIN 250 MG ORAL TABLET 616851 AZITHROMYCIN Inactive PREDNISONE 20 MG ORAL TABLET 2 tabs daily for 3 days, 1 tab daily for 3 days, 1/2 tab daily for 2 days PREDNISONE 20 MG ORAL TABLET 384960 PREDNISONE Inactive DOXYCYCLINE HYCLATE 100 MG ORAL CAPSULE 1 cap by mouth BID x10 days DOXYCYCLINE HYCLATE 100 MG ORAL CAPSULE 1124307 DOXYCYCLINE HYCLATE Inactive ZITHROMAX 250 MG ORAL TABLET Take two (2 ) tablets day one, then one (1) tablet a day for four (4) more days ZITHROMAX 250 MG ORAL TABLET 209061 AZITHROMYCIN Inactive Advance Directives Directive Description Start [...] % 11.0-15.0 platelet count 172 THOUSAND/UL 10*3/mm3 236-536 3015/04/12 mean platelet volume 8.6 fL 7.5-12.5 Lab Report: Prothrombin Time Hemochron - Coagulation prothrombin time (patient) 33.0 SECS s 18.9-24.9 Encounters Code Encounter Date Provider Facility CPT-21041 Level 3 Est. Patient 15:59:25 DIRECTOR OF NURSES REGISTRY Piotr Daley [facility] CPT-09606 Level 3 Est. Patient 12:33:59 DIRECTOR OF NURSES REGISTRY Piotr Daley [facility] CPT-69829 Level 3 Est. Patient 15:56:17 DIRECTOR OF NURSES REGISTRY Piotr Daley [facility] CPT-35307 Level 3 Est. Patient 10:34:54 DIRECTOR OF NURSES REGISTRY Piotr Daley [facility] CPT-54485 Level 3 Est. Patient 17:10:19 CDT Nella Harris APRN [facility] CPT-02472 Level 3 Est. Patient 10:48:17 DIRECTOR OF NURSES REGISTRY Matthew Rangel MD [facility] CPT-71931 Level 4 Est. Patient 17:15:07 DIRECTOR OF NURSES REGISTRY Piotr Daley [facility] CPT-13091 Level 3 Est. Patient 12:46:13 DIRECTOR OF NURSES REGISTRY Piotr Daley [facility] CPT-58014 Level 3 Est. Patient 15:14:31 DIRECTOR OF NURSES REGISTRY Piotr Daley [facility] CPT-63819 Level 3 Est. Patient 09:20:13 DIRECTOR OF NURSES REGISTRY Piotr Daley [facility] CPT-19765 Level 3 Est. Patient 09:49:40 CDT Piotr Daley [facility] CPT-21937 Level 3 Est. Patient 16:28:11 CDT Piotr Daley [facility] CPT-14023 Level 3 Est. Patient 12:41:58 DIRECTOR OF NURSES REGISTRY Piotr Daley [facility] CPT-55125 Level 3 Est. Patient 09:21:24 CDT Piotr Daley [facility] CPT-36431 Level 3 Est. Patient 09:21:11 CDT Piotr Daley [facility] CPT-80811 Level 3 Est. Patient 11:16:29 DIRECTOR OF NURSES REGISTRY Piotr Daley [facility] CPT-96922 Level 3 Est. Patient 18:40:19 DIRECTOR OF NURSES REGISTRY Piotr Daley [facility] CPT-37329 Level 3 Est. Patient 19:30:50 CDT Piotr Daley [facility] CPT-33918 Level 3 Est. Patient 22:06:44 CDT Katrina Rinaldi MD PhD [facility] CPT-96917 Level 3 Est. Patient 14:20:00 CDT Piotr Daley [facility] CPT-68340 Level 3 Est. Patient 14:15:22 DIRECTOR OF NURSES REGISTRY Piotr Daley [facility] CPT-91517 Level 3 Est. Patient 20:19:57 DIRECTOR OF NURSES REGISTRY Piotr Daley [facility] CPT-85027 Level 3 Est. Patient 16:44:32 CDT Piotr Daley [facility] CPT-87784 Level 3 Est. Patient 08:48:46 DIRECTOR OF NURSES REGISTRY Piotr Daley [facility] CPT-61980 Level 3 Est. Patient 21:01:21 CDT Piotr Daley [facility] Procedures Code Procedure Name Date Entry Date Standard Description CPT-34169 Sacroiliac jt < 3V - XRAY USE ONLY 16:45:19 DIRECTOR OF NURSES REGISTRY 05/09 CPT-00661 LS spine comp w obliques - XRAY USE ONLY 14:52:26 [facility] CPT-12792 Chest, 2 views 12:55:58 DIRECTOR OF NURSES REGISTRY CPT-G0439 Subsequent Annual Wellness Exam 10:34:52 [facility] CPT-67146 BMP - LAB USE ONLY 17:19:11 DIRECTOR OF NURSES REGISTRY CPT-95230 PT/INR - LAB USE ONLY 17:19:10 [facility] CPT-11058 Venipuncture Draw Fee 17:19:10 [facility] CPT-05547 PT/INR - LAB USE ONLY 08:12:25 [facility] CPT-37617 Venipuncture Draw Fee 08:12:24 [facility]OR OF NURSES REGISTRY CPT-86216 Venipuncture Draw Fee 11:31:07 DIRECTOR OF NURSES REGISTRY CPT-44078 TPSA - LAB USE ONLY 11:31:07 DIRECTOR OF NURSES REGISTRY CPT-19186 PT/INR - LAB USE ONLY 11:31:07 DIRECTOR OF NURSES REGISTRY CPT-G0439 Subsequent Annual Wellness Exam 09:59:29 DIRECTOR OF NURSES REGISTRY CPT-49903 Creatinine - LAB USE ONLY 14:37:55 DIRECTOR OF NURSES REGISTRY CPT-17137 PT/INR - LAB USE ONLY 14:37:55 DIRECTOR OF NURSES REGISTRY CPT-01166 Venipuncture Draw Fee 14:37:55 DIRECTOR OF NURSES REGISTRY CPT-84212 LS spine comp w obliques - XRAY USE ONLY 12:59:25 DIRECTOR OF NURSES REGISTRY CPT-36914 PT/INR - LAB USE ONLY 13:49:20 CDT CPT-95720 Venipuncture Draw Fee 13:49:19 CDT CPT-54887 PT/INR - LAB USE ONLY 15:48:49 CDT CPT-60608 Venipuncture Draw Fee 15:48:49 CDT CPT-75461 Venipuncture Draw Fee 11:31:59 CDT CPT-52849 PT/INR - LAB USE ONLY 11:31:59 CDT CPT-77063 Venipuncture Draw Fee 13:29:15 CDT CPT-52849 Thoracolumbar AP/Lat 15:19:19 DIRECTOR OF NURSES REGISTRY CPT-G0438 Initial Annual Wellness Exam 12:18:54 DIRECTOR OF NURSES REGISTRY CPT-42488 Knee 3V 09:57:38 CDT CPT-OV Office Visit 15:45:01 DIRECTOR OF NURSES REGISTRY CPT-24382 Abd compl w upright 17:10:25 CDT
--- OUTSIDE RECORDS SUMMARY | 2018-07-18 10:37 | XMS REPORT | Clinical Summary ---
Author Author Admin, Is[facility] Organization [employer] Address Unknown Phone Unavailable Allergies, Adverse Reactions, [...] neoplasm of prostate V10.46 Active Alina Meyers [employer] PROGRAMMER Personal history of malignant neoplasm of prostate Coronary artery disease 414.00 Active Alina Luigi ARISTIDES Coronary atherosclerosis of unspecified type of vessel, citizen [place] or graft Back pain, thoracic region, left 724.1 Inactive Piotr Daley DO Pain in thoracic spine Thoracic back pain 724.5 Active Piotr Wilson Edi DO Backache, unspecified Back pain lumbar 724.2 Active Piotr Daley DO Lumbago Peripheral neuropathy, lower extremity, left 356.9 Active 02/19 Piotr W Edi DO Unspecified hereditary and idiopathic peripheral neuropathy Insect bite 919.4 Active Nella Harris [employer]MER Insect bite, nonvenomous, of other, multiple, and unspecified sites, without mention of infection Pruritus 698.9 Active Nella Harris [employer] PROGRAMMER Unspecified pruritic disorder FLANK PAIN, RIGHT ICD-789.09 [...] mouth BID x10 days 10/01 DOXYCYCLINE HYCLATE 14450003082 No Longer Active Nella Steven [employer] PROGRAMMER Active WARFARIN SODIUM 5 MG TABS 1 tablet daily M-S, 1/2 tab on Heart WARFARIN SODIUM 84910075061 Active Nella [place] [employer] PROGRAMMER Active PROAIR HFA 108 (90 BASE) MCG/ACT AERS 1-2 puffs four times a day as needed ALBUTEROL SULFATE 05628525255 Active Matthew Rangel MD Active PREDNISONE 20 MG TAB 2 tabs daily for 3 days, 1 tab daily for 3 days, 1/2 tab daily for 2 days PREDNISONE 96555985684 No Longer Active Matthew Rangel MD Active TRAMADOL HCL 50 MG TABS 1 po tid with ES Tylenol TRAMADOL HCL 59999785610 No Longer Active Matthew Rangel MD Active GABAPENTIN 300 MG CAPS 1 po q hs for nerve pain GABAPENTIN 72503388896 No Longer Active Matthew Ranegl MD Active PREDNISONE 20 MG TAB 2 tablets today, then 1 tablet days 2 through 4 PREDNISONE 77291306129 No Longer Active Piotr Daley DO Active AZITHROMYCIN 250 MG TABS 2 po qd x 1 day, then 1 po qd x 4 days AZITHROMYCIN 95948689091 No Longer Active Piotr Daley DO Active IBUPROFEN 800 MG TABS 1 tab every 8 hours as needed IBUPROFEN 64865437915 No Longer Active Piotr Daley DO Active LOMOTIL 2.5-0.025 MG TAB 1 to 2 four times a day as needed for diarrhea 10/13 DIPHENOXYLATE-ATROPINE 96842887661 No Longer Active Piotr Daley DO Active WARFARIN SODIUM 4 MG TABS 1 tab every evening WARFARIN SODIUM 83996735449 No Longer Active Piotr Daley DO Active PREDNISONE 20 MG TAB 1 tablet twice daily for 2 days, then 1 tablet once daily for 2 days PREDNISONE 01659715412 No Longer Active Piotr Daley DO Active PROMETHAZINE HCL 25 MG TABS 1 four times a day as needed for nausea/vomiting PROMETHAZINE HCL 15964606465 No Longer Active Piotr Daley DO Active TUSSIONEX PENNKINETIC ER 10-8 MG/5ML LQCR 5ml po q12hr PRN Cough HYDROCOD POLST-CHLORPHEN POLST 73587703131 No Longer Active Piotr Daley DO Active AZITHROMYCIN 250 MG TABS 2 po qd x 1 day, then 1 po qd x 4 days AZITHROMYCIN 79511216312 No Longer Active Piotr Daley DO Active AZITHROMYCIN 250 MG TABS 2 po qd x 1 day, then 1 po qd x 4 days AZITHROMYCIN 66276155464 No Longer Active Piotr Daley DO Active LISINOPRIL-HYDROCHLOROTHIAZIDE 10-12.5 MG TABS 1 tab by mouth daily LISINOPRIL-HYDROCHLOROTHIAZIDE 41617410889 Active Catalina Freitas Active LISINOPRIL 10 MG TABS 1/2-1 tab po every other day LISINOPRIL 69648365233 No Longer Active Piotr W Edi DO Active VENTOLIN HFA 108 (90 BASE) MCG/ACT AERS 2 puffs four times a day PRN cough ALBUTEROL SULFATE 89345067343 No Longer Active Piort Daley DO Active NYSTATIN-TRIAMCINOLONE 235979-5.1 UNIT/GM-% CREA Apply to area BID NYSTATIN-TRIAMCINOLONE 39352849597 No Longer Active Alena Oswaldum WATCH CASE POLISHER Active PHISOHEX 3 % LIQD Use Directed HEXACHLOROPHENE 65087981309 No Longer Active Sandra [place] Active AZITHROMYCIN 250 MG TABS 2 po qd x 1 day, then 1 po qd x 4 days AZITHROMYCIN 23107498376 No Longer Active Katrina Rinaldi MD PhD Active AZITHROMYCIN 250 MG TABS 2 po qd x 1 day, then 1 po qd x 4 days AZITHROMYCIN 79244434757 No Longer Active Piotr Daley DO Active AZITHROMYCIN 500 MG SOLR 1 po q day AZITHROMYCIN 89414406886 No Longer Active Piotr Daley DO Active NYSTATIN-TRIAMCINOLONE 613421-4.1 UNIT/GM-% CREA apply bid 08/19 NYSTATIN-TRIAMCINOLONE 33133092693 No Longer Active Piotr Daley DO Active IBUPROFEN 800 MG TABS 1 po q 8 hours prn pain sparinly IBUPROFEN 91654500057 No Longer Active Piotr Daley DO Active VITAMIN D3 5000 UNIT CAPS 1 po daily CHOLECALCIFEROL 01875742878 Active Piotr Daley DO Active IBUPROFEN 800 MG TABS 1 po q 8 hours prn pain sparinly IBUPROFEN 800 MG TABS 666007 IBUPROFEN Inactive NYSTATIN-TRIAMCINOLONE 118979-2.1 UNIT/GM-% CREA apply bid 08/19 NYSTATIN-TRIAMCINOLONE 331155-8.1 UNIT/GM-% CREA 8291297 NYSTATIN- TRIAMCINOLONE Inactive AZITHROMYCIN 500 MG SOLR 1 po q day AZITHROMYCIN 500 MG SOLR 53035052617 AZITHROMYCIN Inactive VENTOLIN HFA 108 (90 BASE) MCG/ACT AERS 2 puffs four times a day PRN cough VENTOLIN HFA 108 (90 BASE) MCG/ACT AERS ALBUTEROL SULFATE Inactive LISINOPRIL 10 MG TABS 1/2-1 tab po every other day LISINOPRIL 10 MG TABS 324962 LISINOPRIL Inactive TUSSIONEX PENNKINETIC ER 10-8 MG/5ML LQCR 5ml po q12hr PRN Cough TUSSIONEX PENNKINETIC ER 10-8 MG/5ML LQCR HYDROCOD POLST- CHLORPHEN POLST Inactive PROMETHAZINE HCL 25 MG TABS 1 four times a day as needed for nausea/vomiting PROMETHAZINE HCL 25 MG TABS 615095 PROMETHAZINE HCL Inactive PREDNISONE 20 MG TAB 1 tablet twice daily for 2 days, then 1 tablet once daily for 2 days PREDNISONE 20 MG TAB 414822 PREDNISONE Inactive WARFARIN SODIUM 4 MG TABS 1 tab every evening WARFARIN SODIUM 4 MG TABS 023124 WARFARIN SODIUM Inactive LOMOTIL 2.5-0.025 MG TAB 1 to 2 four times a day as needed for diarrhea 10/13 LOMOTIL 2.5-0.025 MG TAB 8727668 DIPHENOXYLATE-ATROPINE Inactive IBUPROFEN 800 MG TABS 1 tab every 8 hours as needed IBUPROFEN 800 MG TABS 586162 IBUPROFEN Inactive PREDNISONE 20 MG TAB 2 tablets today, then 1 tablet days 2 through 4 PREDNISONE 20 MG TAB 803028 PREDNISONE Inactive GABAPENTIN 300 MG CAPS 1 po q hs for nerve pain GABAPENTIN 300 MG CAPS 718516 GABAPENTIN Inactive TRAMADOL HCL 50 MG TABS 1 po tid with ES Tylenol TRAMADOL HCL 50 MG TABS 852420 TRAMADOL HCL Inactive AZITHROMYCIN 250 MG TABS 2 po qd x 1 day, then 1 po qd x 4 days AZITHROMYCIN 250 MG TABS 8206334 AZITHROMYCIN Inactive AZITHROMYCIN 250 MG TABS 2 po qd x 1 day, then 1 po qd x 4 days AZITHROMYCIN 250 MG TABS 4423823 AZITHROMYCIN Inactive NYSTATIN-TRIAMCINOLONE 854860-5.1 UNIT/GM-% CREA Apply to area BID NYSTATIN-TRIAMCINOLONE 312815-3.1 UNIT/GM-% CREA 9036374 NYSTATIN-TRIAMCINOLONE Inactive AZITHROMYCIN 250 MG TABS 2 po qd x 1 day, then 1 po qd x 4 days AZITHROMYCIN 250 MG TABS 1597936 AZITHROMYCIN Inactive AZITHROMYCIN 250 MG TABS 2 po qd x 1 day, then 1 po qd x 4 days AZITHROMYCIN 250 MG TABS 1605173 AZITHROMYCIN Inactive AZITHROMYCIN 250 MG TABS 2 po qd x 1 day, then 1 po qd x 4 days AZITHROMYCIN 250 MG TABS 9177079 AZITHROMYCIN Inactive PREDNISONE 20 MG TAB 2 tabs daily for 3 days, 1 tab daily for 3 days, 1/2 tab daily for 2 days PREDNISONE 20 MG TAB 715495 PREDNISONE Inactive DOXYCYCLINE HYCLATE 100 MG CAP 1 cap by mouth BID x10 days 10/01 DOXYCYCLINE HYCLATE 100 MG CAP 2967625 DOXYCYCLINE HYCLATE Inactive Advance Directives Directive Description [...] Panel - Chemistry sodium, serum 141 mmol/L 409-132 3999/01/24 potassium, serum 4.3 mmol/L 3.5-5.2 chloride, serum [...] % 11.0-15.0 platelet count 172 THOUSAND/UL 10*3/mm3 179-509 8661/04/12 mean platelet volume 8.6 fL 7.5-12.5 Lab [...] 18.9-24.9 Encounters Code Encounter Date Provider Facility CPT-34083 Level 3 Est. Patient 17:10:19 CDT Nella Harris ARISTIDES [facility] CPT-03741 Level 3 Est. Patient 10:48:17 GAME MANAGER Matthew Rangel MD [facility] CPT-42569 Level 4 Est. Patient 17:15:07 GAME MANAGER Piotr Daley [facility] CPT-13148 Level 3 Est. Patient 12:46:13 GAME MANAGER Piotr Daley [facility] CPT-97523 Level 3 Est. Patient 15:14:31 GAME MANAGER Piotr Daley [facility] CPT-31718 Level 3 Est. Patient 09:20:13 GAME MANAGER Piotr Daley [facility] CPT-80062 Level 3 Est. Patient 09:49:40 CDT Piotr Daley [facility] CPT-26076 Level 3 Est. Patient 16:28:11 CDT Piotr Daley [facility] CPT-87379 Level 3 Est. Patient 12:41:58 GAME MANAGER Piotr Daley [facility] CPT-52494 Level 3 Est. Patient 09:21:24 CDT Piotr Daley [facility] CPT-91240 Level 3 Est. Patient 09:21:11 CDT Piotr Daley [facility] CPT-59040 Level 3 Est. Patient 11:16:29 GAME MANAGER Piotr Daley [facility] CPT-43986 Level 3 Est. Patient 18:40:19 GAME MANAGER Piotr Daley [facility] CPT-41911 Level 3 Est. Patient 19:30:50 CDT Piotr Daley [facility] CPT-24155 Level 3 Est. Patient 22:06:44 CDT Katrina Rinaldi MD PhD [facility] CPT-13104 Level 3 Est. Patient 14:20:00 CDT Piotr Daley [facility] CPT-01023 Level 3 Est. Patient 14:15:22 GAME MANAGER Piotr Daley [facility] CPT-63805 Level 3 Est. Patient 20:19:57 GAME MANAGER Piotr Daley [facility] CPT-21539 Level 3 Est. Patient 16:44:32 CDT Piotr Daley [facility] CPT-07175 Level 3 Est. Patient 08:48:46 GAME MANAGER Piotr Daley [facility] CPT-42112 Level 3 Est. Patient 21:01:21 CDT Piotr Daley [facility] Procedures Code Procedure Name Date Entry Date Standard Description CPT-25335 BMP - LAB USE ONLY 17:19:11 GAME MANAGER CPT-04511 PT/INR - LAB USE ONLY 17:19:10 GAME MANAGER CPT-80638 Venipuncture Draw Fee 17:19:10 GAME MANAGER CPT-08480 PT/INR - LAB USE ONLY 08:12:25 GAME MANAGER CPT-09793 Venipuncture Draw Fee 08:12:24 GAME MANAGER CPT-32269 Venipuncture Draw Fee 11:31:07 GAME MANAGER CPT-96968 TPSA - LAB USE ONLY 11:31:07 GAME MANAGER CPT-72985 PT/INR - LAB USE ONLY 11:31:07 GAME MANAGER CPT-G0439 [facility] Annual Wellness Exam 09:59:29 GAME MANAGER CPT-50254 Creatinine - LAB USE ONLY 14:37:55 GAME MANAGER CPT-96333 PT/INR - LAB USE ONLY 14:37:55 GAME MANAGER CPT-53948 Venipuncture Draw Fee 14:37:55 GAME MANAGER CPT-87672 LS spine comp w obliques - XRAY USE ONLY 12:59:25 GAME MANAGER CPT-63694 PT/INR - LAB USE ONLY 13:49:20 CDT CPT-74587 Venipuncture Draw Fee 13:49:19 CDT CPT-96913 PT/INR - LAB USE ONLY 15:48:49 CDT CPT-07983 Venipuncture Draw Fee 15:48:49 CDT CPT-56210 Venipuncture Draw Fee 11:31:59 CDT CPT-99162 PT/INR - LAB USE ONLY 11:31:59 CDT CPT-13439 Venipuncture Draw Fee 13:29:15 CDT CPT-10330 Thoracolumbar AP/Lat 15:19:19 GAME MANAGER CPT-G0438 Initial Annual Wellness Exam 12:18:54 GAME MANAGER CPT-12026 Knee 3V 09:57:38 CDT CPT-OV Office Visit 15:45:01 GAME MANAGER CPT-92475 Abd compl w upright 17:10:25 CDT
--- OUTSIDE RECORDS SUMMARY | 2018-07-18 10:38 | XMS REPORT | Clinical Summary ---
Author Author Admin, [employer] Organization [employer] Address Unknown Phone Unavailable Allergies, Adverse Reactions, [...] mention of cerebral infarction HYPERTENSION 401.9 Active Poitr Daley DO Unspecified essential hypertension FLANK PAIN, [...] PhD BRONCHITIS-ACUTE ICD-466.0 Inactive iPotr Daley DO DEEP VENOUS THROMBOPHLEBITIS, LEG, RIGHT [...] Knee pain, left ICD-719.46 Inactive Sirisha Chen PROPERTY TECHNICIAN Actinic keratoses ICD-702.0 Inactive Sirisha Chen PROPERTY TECHNICIAN Back pain, thoracic region, left ICD-724.1 Inactive Piotr Daley DO Thoracic back pain ICD-724.5 Inactive Sirisha Chen PROPERTY TECHNICIAN Back pain lumbar ICD-724.2 Inactive Sirisha Chen PROPERTY TECHNICIAN Insect bite ICD-919.4 Inactive Sirisha Chen PROPERTY TECHNICIAN Pruritus ICD-698.9 Inactive Sirisha Chen PROPERTY TECHNICIAN 04/09 Bronchitis-Acute ICD-466.0 Inactive Sirisha Chen PROPERTY TECHNICIAN Dyspnea ICD-786.09 Inactive Sirisha Chen PROPERTY TECHNICIAN 05/09 Medication List Medication Instructions Start Date Stop Date Generic Name NDC Status Provider Patient Instruction WARFARIN SODIUM 4 MG ORAL TABLET 1 tablet by mouth daily WARFARIN SODIUM 64808765151 Active Anahy Hall Active MELOXICAM 15 MG ORAL TABLET 1 po q day for pain with food MELOXICAM 50142682792 Active Piotr Daley DO Active PREDNISONE 10 MG ORAL TABLET 1 tablet by mouth daily PREDNISONE 97057167310 No Longer Active Emelyn Norris Active TESSALON PERLES 100 MG ORAL CAPSULE 1-2 tablet by mouth 3 times daily 04/16 BENZONATATE 53161389853 No Longer Active Emelyn Norris Active PREDNISONE 20 MG ORAL TABLET two tabs by mouth today, then one tab by mouth days two and three PREDNISONE 13711589706 No Longer Active Piotr Daley DO Active CYCLOBENZAPRINE HCL 10 MG ORAL TABLET 1 tablet by mouth three times daily as needed for muscle spasm/pain CYCLOBENZAPRINE HCL 63079508956 Active Sirisha Chen PROPERTY TECHNICIAN Active ZITHROMAX 250 MG ORAL TABLET Take two (2 ) tablets day one, then one (1) tablet a day for four (4) more days AZITHROMYCIN 15765015504 No Longer Active Piotr Daley DO Active PROAIR HFA 108 (90 BASE) MCG/ACT INHALATION AEROSOL SOLUTION 1-2 puffs four times a day as needed ALBUTEROL SULFATE 29027004440 No Longer Active Emelyn Norris Active DOXYCYCLINE HYCLATE 100 MG ORAL CAPSULE 1 cap by mouth BID x10 days DOXYCYCLINE HYCLATE 22525721937 No Longer Active Nella Harris SOUBRETTE Active PREDNISONE 20 MG ORAL TABLET 2 tabs daily for 3 days, 1 tab daily for 3 days, 1/2 tab daily for 2 days PREDNISONE 13260439858 No Longer Active Matthew Rangel MD Active TRAMADOL HCL 50 MG ORAL TABLET 1 po tid with ES Tylenol TRAMADOL HCL 04066304616 No Longer Active Matthew Rangel MD Active GABAPENTIN 300 MG ORAL CAPSULE 1 po q hs for nerve pain GABAPENTIN 48666366517 No Longer Active Matthew Rangel MD Active PREDNISONE 20 MG ORAL TABLET 2 tablets today, then 1 tablet days 2 through 4 PREDNISONE 24150065366 No Longer Active Piotr Daley DO Active AZITHROMYCIN 250 MG ORAL TABLET 2 po qd x 1 day, then 1 po qd x 4 days 07/12 AZITHROMYCIN 15285159556 No Longer Active Pitor Daley DO Active IBUPROFEN 800 MG ORAL TABLET 1 tab every 8 hours as needed 07/12 IBUPROFEN 06458639764 No Longer Active Piotr Daley DO Active LOMOTIL 2.5-0.025 MG ORAL TABLET 1 to 2 four times a day as needed for diarrhea DIPHENOXYLATE-ATROPINE 24613051619 No Longer Active Piotr W Edi DO Active WARFARIN SODIUM 4 MG ORAL TABLET 1 tab every evening WARFARIN SODIUM 66033043431 No Longer Active Piotr Daley DO Active PREDNISONE 20 MG ORAL TABLET 1 tablet twice daily for 2 days, then 1 tablet once daily for 2 days PREDNISONE 70357627614 No Longer Active Piotr Daley DO Active PROMETHAZINE HCL 25 MG ORAL TABLET 1 four times a day as needed for nausea/ vomiting PROMETHAZINE HCL 31471703473 No Longer Active Piotr Daley DO Active TUSSIONEX PENNKINETIC ER 10-8 MG/5ML ORAL SUSPENSION EXTENDED RELEASE 5ml po q12hr PRN Cough HYDROCOD POLST-CHLORPHEN POLST 83222528603 No Longer Active Piotr Daley DO Active AZITHROMYCIN 250 MG ORAL TABLET 2 po qd x 1 day, then 1 po qd x 4 days 10/13 AZITHROMYCIN 48418233175 No Longer Active Piotr Daley DO Active AZITHROMYCIN 250 MG ORAL TABLET 2 po qd x 1 day, then 1 po qd x 4 days 05/07 AZITHROMYCIN 28326635195 No Longer Active Piotr Daley DO Active LISINOPRIL-HYDROCHLOROTHIAZIDE 10-12.5 MG ORAL TABLET 1 tab by mouth daily LISINOPRIL-HYDROCHLOROTHIAZIDE 75114430938 Active Piotr Daley DO Active LISINOPRIL 10 MG ORAL TABLET 1/2-1 tab po every other day LISINOPRIL 34534004010 No Longer Active Piotr Daley DO Active VENTOLIN HFA 108 (90 Base) MCG/ACT INHALATION AEROSOL SOLUTION 2 puffs four times a day PRN cough ALBUTEROL SULFATE 38376060977 No Longer Active Piotr Daley DO Active NYSTATIN-TRIAMCINOLONE 605400-2.1 UNIT/GM-% EXTERNAL CREAM Apply to area BID NYSTATIN-TRIAMCINOLONE 98764899700 No Longer Active Alena Chavira PROPERTY TECHNICIAN Active PHISOHEX 3 % LIQD Use Directed HEXACHLOROPHENE 51715371430 No Longer Active Sandra Lamar Active AZITHROMYCIN 250 MG ORAL TABLET 2 po qd x 1 day, then 1 po qd x 4 days 10/21 AZITHROMYCIN 88379404335 No Longer Active Katrina Rinaldi MD PhD Active AZITHROMYCIN 250 MG ORAL TABLET 2 po qd x 1 day, then 1 po qd x 4 days 10/16 AZITHROMYCIN 84927209961 No Longer Active Piotr Daley DO Active AZITHROMYCIN 500 MG INTRAVENOUS SOLUTION RECONSTITUTED 1 po q day AZITHROMYCIN 81282853953 No Longer Active Piotr Daley DO Active NYSTATIN-TRIAMCINOLONE 759351-5.1 UNIT/GM-% EXTERNAL CREAM apply bid NYSTATIN-TRIAMCINOLONE 13299004638 No Longer Active Piotr Daley DO Active IBUPROFEN 800 MG ORAL TABLET 1 po q 8 hours prn pain sparinly IBUPROFEN 22756101100 No Longer Active Piotr Daley DO Active VITAMIN D3 5000 UNIT ORAL CAPSULE 1 po daily CHOLECALCIFEROL 88800831276 Active Piotr Daley DO Active IBUPROFEN 800 MG ORAL TABLET 1 po q 8 hours prn pain sparinly IBUPROFEN 800 MG ORAL TABLET 355499 IBUPROFEN Inactive NYSTATIN-TRIAMCINOLONE 507300-9.1 UNIT/GM-% EXTERNAL CREAM apply bid NYSTATIN-TRIAMCINOLONE 908477-5.1 UNIT/GM-% EXTERNAL CREAM 0985740 NYSTATIN-TRIAMCINOLONE Inactive AZITHROMYCIN 500 MG INTRAVENOUS SOLUTION RECONSTITUTED 1 po q day AZITHROMYCIN 500 MG INTRAVENOUS SOLUTION RECONSTITUTED 52470649071 AZITHROMYCIN Inactive VENTOLIN HFA 108 (90 Base) MCG/ACT INHALATION AEROSOL SOLUTION 2 puffs four times a day PRN cough VENTOLIN HFA 108 (90 Base) MCG/ ACT INHALATION AEROSOL SOLUTION ALBUTEROL SULFATE Inactive LISINOPRIL 10 MG ORAL TABLET 1/2-1 tab po every other day LISINOPRIL 10 MG ORAL TABLET 886678 LISINOPRIL Inactive TUSSIONEX PENNKINETIC ER 10-8 MG/5ML ORAL SUSPENSION EXTENDED RELEASE 5ml po q12hr PRN Cough TUSSIONEX PENNKINETIC ER 10-8 MG/5ML ORAL SUSPENSION EXTENDED RELEASE HYDROCOD POLST-CHLORPHEN POLST Inactive PROMETHAZINE HCL 25 MG ORAL TABLET 1 four times a day as needed for nausea/ vomiting PROMETHAZINE HCL 25 MG ORAL TABLET 518607 PROMETHAZINE HCL Inactive PREDNISONE 20 MG ORAL TABLET 1 tablet twice daily for 2 days, then 1 tablet once daily for 2 days PREDNISONE 20 MG ORAL TABLET 809788 PREDNISONE Inactive WARFARIN SODIUM 4 MG ORAL TABLET 1 tab every evening WARFARIN SODIUM 4 MG ORAL TABLET 434146 WARFARIN SODIUM Inactive LOMOTIL 2.5-0.025 MG ORAL TABLET 1 to 2 four times a day as needed for diarrhea LOMOTIL 2.5-0.025 MG ORAL TABLET 4293947 DIPHENOXYLATE-ATROPINE Inactive IBUPROFEN 800 MG ORAL TABLET 1 tab every 8 hours as needed 07/12 IBUPROFEN 800 MG ORAL TABLET 432828 IBUPROFEN Inactive PREDNISONE 20 MG ORAL TABLET 2 tablets today, then 1 tablet days 2 through 4 PREDNISONE 20 MG ORAL TABLET 014221 PREDNISONE Inactive GABAPENTIN 300 MG ORAL CAPSULE 1 po q hs for nerve pain GABAPENTIN 300 MG ORAL CAPSULE 374048 GABAPENTIN Inactive TRAMADOL HCL 50 MG ORAL TABLET 1 po tid with ES Tylenol TRAMADOL HCL 50 MG ORAL TABLET 013189 TRAMADOL HCL Inactive PROAIR HFA 108 (90 BASE) MCG/ACT INHALATION AEROSOL SOLUTION 1-2 puffs four times a day as needed PROAIR HFA 108 (90 BASE) MCG/ACT INHALATION AEROSOL SOLUTION ALBUTEROL SULFATE Inactive PREDNISONE 20 MG ORAL TABLET two tabs by mouth today, then one tab by mouth days two and three PREDNISONE 20 MG ORAL TABLET 803165 PREDNISONE Inactive TESSALON PERLES 100 MG ORAL CAPSULE 1-2 tablet by mouth 3 times daily 04/16 TESSALON PERLES 100 MG ORAL CAPSULE 525547 BENZONATATE Inactive PREDNISONE 10 MG ORAL TABLET 1 tablet by mouth daily PREDNISONE 10 MG ORAL TABLET 550517 PREDNISONE Inactive AZITHROMYCIN 250 MG ORAL TABLET 2 po qd x 1 day, then 1 po qd x 4 days 10/16 AZITHROMYCIN 250 MG ORAL TABLET 333205 AZITHROMYCIN Inactive AZITHROMYCIN 250 MG ORAL TABLET 2 po qd x 1 day, then 1 po qd x 4 days 10/21 AZITHROMYCIN 250 MG ORAL TABLET 554425 AZITHROMYCIN Inactive NYSTATIN-TRIAMCINOLONE 446801-2.1 UNIT/GM-% EXTERNAL CREAM Apply to area BID NYSTATIN-TRIAMCINOLONE 693518-9.1 UNIT/GM-% EXTERNAL CREAM 1333707 NYSTATIN-TRIAMCINOLONE Inactive AZITHROMYCIN 250 MG ORAL TABLET 2 po qd x 1 day, then 1 po qd x 4 days 05/07 AZITHROMYCIN 250 MG ORAL TABLET 243540 AZITHROMYCIN Inactive AZITHROMYCIN 250 MG ORAL TABLET 2 po qd x 1 day, then 1 po qd x 4 days 10/13 AZITHROMYCIN 250 MG ORAL TABLET 926081 AZITHROMYCIN Inactive AZITHROMYCIN 250 MG ORAL TABLET 2 po qd x 1 day, then 1 po qd x 4 days 07/12 AZITHROMYCIN 250 MG ORAL TABLET 786264 AZITHROMYCIN Inactive PREDNISONE 20 MG ORAL TABLET 2 tabs daily for 3 days, 1 tab daily for 3 days, 1/2 tab daily for 2 days PREDNISONE 20 MG ORAL TABLET 303329 PREDNISONE Inactive DOXYCYCLINE HYCLATE 100 MG ORAL CAPSULE 1 cap by mouth BID x10 days DOXYCYCLINE HYCLATE 100 MG ORAL CAPSULE 9846696 DOXYCYCLINE HYCLATE Inactive ZITHROMAX 250 MG ORAL TABLET Take two (2 ) tablets day one, then one (1) tablet a day for four (4) more days ZITHROMAX 250 MG ORAL TABLET 281764 AZITHROMYCIN Inactive Advance Directives Directive Description Start [...] Measured Encounters Code Encounter Date Provider Facility CPT-16716 Level 3 Est. Patient 15:59:25 AN EMPLOYEE SPONSOR OR ADVOCATE AND Piotr Daley DO [facility] CPT-30495 Level 3 Est. Patient 12:33:59 AN EMPLOYEE SPONSOR OR ADVOCATE AND Piotr Daley DO [facility] CPT-84995 Level 3 Est. Patient 15:56:17 AN EMPLOYEE SPONSOR OR ADVOCATE AND Piotr Daley DO [facility] CPT-39170 Level 3 Est. Patient 10:34:54 AN EMPLOYEE SPONSOR OR ADVOCATE AND Piotr Daley [facility] CPT-28566 Level 3 Est. Patient 17:10:19 MALACHI Harris APRN [facility] CPT-18636 Level 3 Est. Patient 10:48:17 AN EMPLOYEE SPONSOR OR ADVOCATE AND Matthew Rangel MD [facility] CPT-61198 Level 4 Est. Patient 17:15:07 AN EMPLOYEE SPONSOR OR ADVOCATE AND Piotr Daley [facility] CPT-02420 Level 3 Est. Patient 12:46:13 AN EMPLOYEE SPONSOR OR ADVOCATE AND Piotr Daley [facility] CPT-18645 Level 3 Est. Patient 15:14:31 AN EMPLOYEE SPONSOR OR ADVOCATE AND Piotr Daley [facility] CPT-27131 Level 3 Est. Patient 09:20:13 AN EMPLOYEE SPONSOR OR ADVOCATE AND Piotr Daley [facility] CPT-57789 Level 3 Est. Patient 09:49:40 CDT Piotr Daley [facility] CPT-45051 Level 3 Est. Patient 16:28:11 CDT Piotr Daley [facility] CPT-36356 Level 3 Est. Patient 12:41:58 AN EMPLOYEE SPONSOR OR ADVOCATE AND Piotr Daley [facility] CPT-80474 Level 3 Est. Patient 09:21:24 CDT Piotr Daley [facility] CPT-60394 Level 3 Est. Patient 09:21:11 CDT Piotr Daley [facility] CPT-36352 Level 3 Est. Patient 11:16:29 AN EMPLOYEE SPONSOR OR ADVOCATE AND Piotr Daley [facility] CPT-45659 Level 3 Est. Patient 18:40:19 AN EMPLOYEE SPONSOR OR ADVOCATE AND Piotr Daley [facility] CPT-14212 Level 3 Est. Patient 19:30:50 CDT Piotr Daley [facility] CPT-70488 Level 3 Est. Patient 22:06:44 CDT Katrina Rinaldi MD PhD [facility] CPT-29334 Level 3 Est. Patient 14:20:00 CDT Piotr Daley [facility] CPT-74499 Level 3 Est. Patient 14:15:22 AN EMPLOYEE SPONSOR OR ADVOCATE AND Piotr Daley [facility] CPT-62252 Level 3 Est. Patient 20:19:57 AN EMPLOYEE SPONSOR OR ADVOCATE AND Piotr Daley [facility] CPT-08193 Level 3 Est. Patient 16:44:32 CDT Piotr Daley [facility] CPT-50969 Level 3 Est. Patient 08:48:46 AN EMPLOYEE SPONSOR OR ADVOCATE AND Piotr Daley [facility] CPT-14345 Level 3 Est. Patient 21:01:21 CDT Piotr Daley [facility] Procedures Code Procedure Name Date Entry Date Standard Description CPT-08152 Sacroiliac jt < 3V - XRAY USE ONLY 16:45:19 AN EMPLOYEE SPONSOR OR ADVOCATE AND 05/09 CPT-76949 LS spine comp w obliques - XRAY USE ONLY 14:52:26 [facility] CPT-46321 Chest, 2 views 12:55:58 [facility] CPT-G0439 Subsequent Annual Wellness Exam 10:34:52 AN EMPLOYEE SPONSOR OR ADVOCATE AND CPT-18863 BMP - LAB USE ONLY 17:19:11 [facility] CPT-18563 PT/INR - LAB USE ONLY 17:19:10 [facility] CPT-63705 Venipuncture Draw Fee 17:19:10 [facility] CPT-83319 PT/INR - LAB USE ONLY 08:12:25 AN EMPLOYEE SPONSOR OR ADVOCATE AND CPT-30338 Venipuncture Draw Fee 08:12:24 AN EMPLOYEE SPONSOR OR ADVOCATE AND CPT-34580 Venipuncture Draw Fee 11:31:07 AN EMPLOYEE SPONSOR OR ADVOCATE AND CPT-41760 TPSA - LAB USE ONLY 11:31:07 AN EMPLOYEE SPONSOR OR ADVOCATE AND CPT-94109 PT/INR - LAB USE ONLY 11:31:07 AN EMPLOYEE SPONSOR OR ADVOCATE AND CPT-G0439 Subsequent Annual Wellness Exam 09:59:29 AN EMPLOYEE SPONSOR OR ADVOCATE AND CPT-43415 Creatinine - LAB USE ONLY 14:37:55 AN EMPLOYEE SPONSOR OR ADVOCATE AND CPT-12345 PT/INR - LAB USE ONLY 14:37:55 AN EMPLOYEE SPONSOR OR ADVOCATE AND CPT-39801 Venipuncture Draw Fee 14:37:55 AN EMPLOYEE SPONSOR OR ADVOCATE AND CPT-74234 LS spine comp w obliques - XRAY USE ONLY 12:59:25 AN EMPLOYEE SPONSOR OR ADVOCATE AND CPT-29842 PT/INR - LAB USE ONLY 13:49:20 CDT CPT-74352 Venipuncture Draw Fee 13:49:19 CDT CPT-47447 PT/INR - LAB USE ONLY 15:48:49 CDT CPT-49763 Venipuncture Draw Fee 15:48:49 CDT CPT-18836 Venipuncture Draw Fee 11:31:59 CDT CPT-05404 PT/INR - LAB USE ONLY 11:31:59 CDT CPT-49919 Venipuncture Draw Fee 13:29:15 CDT CPT-60275 Thoracolumbar AP/Lat 15:19:19 AN EMPLOYEE SPONSOR OR ADVOCATE AND CPT-G0438 Initial Annual Wellness Exam 12:18:54 AN EMPLOYEE SPONSOR OR ADVOCATE AND CPT-12903 Knee 3V 09:57:38 CDT CPT-OV Office Visit 15:45:01 AN EMPLOYEE SPONSOR OR ADVOCATE AND CPT-25931 Abd compl w upright 17:10:25 CDT
--- OUTSIDE RECORDS SUMMARY | 2018-07-18 10:39 | XMS REPORT | Clinical Summary ---
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5 Inactive Sirisha Chen PHYSICAL SCIENTIST Back pain lumbar ICD-724.2 Inactive Sirisha Chen PHYSICAL SCIENTIST Insect bite ICD-919.4 Inactive Sirisha Chen PHYSICAL SCIENTIST Pruritus ICD-698.9 Inactive Sirisha Chen PHYSICAL SCIENTIST 04/09 Bronchitis-Acute ICD-466.0 Inactive Sirisha Chen PHYSICAL SCIENTIST Dyspnea ICD-786.09 Inactive Sirisha Chen PHYSICAL SCIENTIST 05/09 Medication List Medication Instructions Start Date Stop Date Generic Name NDC Status Provider Patient Instruction WARFARIN SODIUM 4 MG ORAL TABLET 1 tablet by mouth daily WARFARIN SODIUM 97915474151 Active Anahy Hall Active MELOXICAM 15 MG ORAL TABLET 1 po q day for pain with food MELOXICAM 27286500767 Active Piotr Daley DO Active PREDNISONE 10 MG ORAL TABLET 1 tablet by mouth daily PREDNISONE 44240045419 No Longer Active Emelyn Norris Active TESSALON PERLES 100 MG ORAL CAPSULE 1-2 tablet by mouth 3 times daily 04/16 BENZONATATE 69566016385 No Longer Active Emelyn Norris Active PREDNISONE 20 MG ORAL TABLET two tabs by mouth today, then one tab by mouth days two and three PREDNISONE 30069996635 No Longer Active Piotr Daley DO Active CYCLOBENZAPRINE HCL 10 MG ORAL TABLET 1 tablet by mouth three times daily as needed for muscle spasm/pain CYCLOBENZAPRINE HCL 18113733403 Active Sirisha Gustavo PHYSICAL SCIENTIST Active ZITHROMAX 250 MG ORAL TABLET Take two (2 ) tablets day one, then one (1) tablet a day for four (4) more days AZITHROMYCIN 12060876465 No Longer Active Piotr Daley DO Active PROAIR HFA 108 (90 BASE) MCG/ACT INHALATION AEROSOL SOLUTION 1-2 puffs four times a day as needed ALBUTEROL SULFATE 65111998783 No Longer Active Emelyn Norris Active DOXYCYCLINE HYCLATE 100 MG ORAL CAPSULE 1 cap by mouth BID x10 days DOXYCYCLINE HYCLATE 61393757789 No Longer Active Nella Harris APRN Active PREDNISONE 20 MG ORAL TABLET 2 tabs daily for 3 days, 1 tab daily for 3 days, 1/2 tab daily for 2 days PREDNISONE 31496932098 No Longer Active Matthew Rangel MD Active TRAMADOL HCL 50 MG ORAL TABLET 1 po tid with ES Tylenol TRAMADOL HCL 01349645405 No Longer Active Matthew Rangel MD Active GABAPENTIN 300 MG ORAL CAPSULE 1 po q hs for nerve pain GABAPENTIN 25710189037 No Longer Active Matthew Rangel MD Active PREDNISONE 20 MG ORAL TABLET 2 tablets today, then 1 tablet days 2 through 4 PREDNISONE 08079743480 No Longer Active Piotr Daley DO Active AZITHROMYCIN 250 MG ORAL TABLET 2 po qd x 1 day, then 1 po qd x 4 days 07/12 AZITHROMYCIN 23546941127 No Longer Active Piotr Daley DO Active IBUPROFEN 800 MG ORAL TABLET 1 tab every 8 hours as needed 07/12 IBUPROFEN 35627250238 No Longer Active Piotr Daley DO Active LOMOTIL 2.5-0.025 MG ORAL TABLET 1 to 2 four times a day as needed for diarrhea DIPHENOXYLATE-ATROPINE 60347429757 No Longer Active Piotr W Edi DO Active WARFARIN SODIUM 4 MG ORAL TABLET 1 tab every evening WARFARIN SODIUM 63630496306 No Longer Active Piotr Daley DO Active PREDNISONE 20 MG ORAL TABLET 1 tablet twice daily for 2 days, then 1 tablet once daily for 2 days PREDNISONE 06507402113 No Longer Active Piotr Daley DO Active PROMETHAZINE HCL 25 MG ORAL TABLET 1 four times a day as needed for nausea/ vomiting PROMETHAZINE HCL 86093646546 No Longer Active Piotr Daley DO Active TUSSIONEX PENNKINETIC ER 10-8 MG/5ML ORAL SUSPENSION EXTENDED RELEASE 5ml po q12hr PRN Cough HYDROCOD POLST-CHLORPHEN POLST 09484911663 No Longer Active Piotr Daley DO Active AZITHROMYCIN 250 MG ORAL TABLET 2 po qd x 1 day, then 1 po qd x 4 days 10/13 AZITHROMYCIN 89228380264 No Longer Active Piotr Daley DO Active AZITHROMYCIN 250 MG ORAL TABLET 2 po qd x 1 day, then 1 po qd x 4 days 05/07 AZITHROMYCIN 14355462065 No Longer Active Piotr Daley DO Active LISINOPRIL-HYDROCHLOROTHIAZIDE 10-12.5 MG ORAL TABLET 1 tab by mouth daily LISINOPRIL-HYDROCHLOROTHIAZIDE 87868475182 Active Piotr Daley DO Active LISINOPRIL 10 MG ORAL TABLET 1/2-1 tab po every other day LISINOPRIL 87398220980 No Longer Active Piotr Daley DO Active VENTOLIN HFA 108 (90 Base) MCG/ACT INHALATION AEROSOL SOLUTION 2 puffs four times a day PRN cough ALBUTEROL SULFATE 52651369326 No Longer Active Piotr Daley DO Active NYSTATIN-TRIAMCINOLONE 316884-8.1 UNIT/GM-% EXTERNAL CREAM Apply to area BID NYSTATIN-TRIAMCINOLONE 50582066934 No Longer Active Alena Chavira PHYSICAL SCIENTIST Active PHISOHEX 3 % LIQD Use Directed HEXACHLOROPHENE 52142358704 No Longer Active Sandra [place] Active AZITHROMYCIN 250 MG ORAL TABLET 2 po qd x 1 day, then 1 po qd x 4 days 10/21 AZITHROMYCIN 43622692602 No Longer Active Katrina Rinaldi MD PhD Active AZITHROMYCIN 250 MG ORAL TABLET 2 po qd x 1 day, then 1 po qd x 4 days 10/16 AZITHROMYCIN 62470003910 No Longer Active Piotr Daley DO Active AZITHROMYCIN 500 MG INTRAVENOUS SOLUTION RECONSTITUTED 1 po q day AZITHROMYCIN 17464046710 No Longer Active Piotr Daley DO Active NYSTATIN-TRIAMCINOLONE 031907-5.1 UNIT/GM-% EXTERNAL CREAM apply bid NYSTATIN-TRIAMCINOLONE 62221755513 No Longer Active Piotr Daley DO Active IBUPROFEN 800 MG ORAL TABLET 1 po q 8 hours prn pain sparinly IBUPROFEN 94572860824 No Longer Active Piotr Daley DO Active VITAMIN D3 5000 UNIT ORAL CAPSULE 1 po daily CHOLECALCIFEROL 03042644836 Active Piotr Daley DO Active IBUPROFEN 800 MG ORAL TABLET 1 po q 8 hours prn pain sparinly IBUPROFEN 800 MG ORAL TABLET 997557 IBUPROFEN Inactive NYSTATIN-TRIAMCINOLONE 626963-3.1 UNIT/GM-% EXTERNAL CREAM apply bid NYSTATIN-TRIAMCINOLONE 086883-3.1 UNIT/GM-% EXTERNAL CREAM 0919569 NYSTATIN-TRIAMCINOLONE Inactive AZITHROMYCIN 500 MG INTRAVENOUS SOLUTION RECONSTITUTED 1 po q day AZITHROMYCIN 500 MG INTRAVENOUS SOLUTION RECONSTITUTED 24110668687 AZITHROMYCIN Inactive VENTOLIN HFA 108 (90 Base) MCG/ACT INHALATION AEROSOL SOLUTION 2 puffs four times a day PRN cough VENTOLIN HFA 108 (90 Base) MCG/ ACT INHALATION AEROSOL SOLUTION ALBUTEROL SULFATE Inactive LISINOPRIL 10 MG ORAL TABLET 1/2-1 tab po every other day LISINOPRIL 10 MG ORAL TABLET 180492 LISINOPRIL Inactive TUSSIONEX PENNKINETIC ER 10-8 MG/5ML ORAL SUSPENSION EXTENDED RELEASE 5ml po q12hr PRN Cough TUSSIONEX PENNKINETIC ER 10-8 MG/5ML ORAL SUSPENSION EXTENDED RELEASE HYDROCOD POLST-CHLORPHEN POLST Inactive PROMETHAZINE HCL 25 MG ORAL TABLET 1 four times a day as needed for nausea/ vomiting PROMETHAZINE HCL 25 MG ORAL TABLET 494833 PROMETHAZINE HCL Inactive PREDNISONE 20 MG ORAL TABLET 1 tablet twice daily for 2 days, then 1 tablet once daily for 2 days PREDNISONE 20 MG ORAL TABLET 307617 PREDNISONE Inactive WARFARIN SODIUM 4 MG ORAL TABLET 1 tab every evening WARFARIN SODIUM 4 MG ORAL TABLET 946783 WARFARIN SODIUM Inactive LOMOTIL 2.5-0.025 MG ORAL TABLET 1 to 2 four times a day as needed for diarrhea LOMOTIL 2.5-0.025 MG ORAL TABLET 3246398 DIPHENOXYLATE-ATROPINE Inactive IBUPROFEN 800 MG ORAL TABLET 1 tab every 8 hours as needed 07/12 IBUPROFEN 800 MG ORAL TABLET 626115 IBUPROFEN Inactive PREDNISONE 20 MG ORAL TABLET 2 tablets today, then 1 tablet days 2 through 4 PREDNISONE 20 MG ORAL TABLET 097505 PREDNISONE Inactive GABAPENTIN 300 MG ORAL CAPSULE 1 po q hs for nerve pain GABAPENTIN 300 MG ORAL CAPSULE 174949 GABAPENTIN Inactive TRAMADOL HCL 50 MG ORAL TABLET 1 po tid with ES Tylenol TRAMADOL HCL 50 MG ORAL TABLET 099956 TRAMADOL HCL Inactive PROAIR HFA 108 (90 BASE) MCG/ACT INHALATION AEROSOL SOLUTION 1-2 puffs four times a day as needed PROAIR HFA 108 (90 BASE) MCG/ACT INHALATION AEROSOL SOLUTION ALBUTEROL SULFATE Inactive PREDNISONE 20 MG ORAL TABLET two tabs by mouth today, then one tab by mouth days two and three PREDNISONE 20 MG ORAL TABLET 878989 PREDNISONE Inactive TESSALON PERLES 100 MG ORAL CAPSULE 1-2 tablet by mouth 3 times daily 04/16 TESSALON PERLES 100 MG ORAL CAPSULE 539763 BENZONATATE Inactive PREDNISONE 10 MG ORAL TABLET 1 tablet by mouth daily PREDNISONE 10 MG ORAL TABLET 421387 PREDNISONE Inactive AZITHROMYCIN 250 MG ORAL TABLET 2 po qd x 1 day, then 1 po qd x 4 days 10/16 AZITHROMYCIN 250 MG ORAL TABLET 928958 AZITHROMYCIN Inactive AZITHROMYCIN 250 MG ORAL TABLET 2 po qd x 1 day, then 1 po qd x 4 days 10/21 AZITHROMYCIN 250 MG ORAL TABLET 264595 AZITHROMYCIN Inactive NYSTATIN-TRIAMCINOLONE 637006-6.1 UNIT/GM-% EXTERNAL CREAM Apply to area BID NYSTATIN-TRIAMCINOLONE 997980-6.1 UNIT/GM-% EXTERNAL CREAM 0078918 NYSTATIN-TRIAMCINOLONE Inactive AZITHROMYCIN 250 MG ORAL TABLET 2 po qd x 1 day, then 1 po qd x 4 days 05/07 AZITHROMYCIN 250 MG ORAL TABLET 236533 AZITHROMYCIN Inactive AZITHROMYCIN 250 MG ORAL TABLET 2 po qd x 1 day, then 1 po qd x 4 days 10/13 AZITHROMYCIN 250 MG ORAL TABLET 022626 AZITHROMYCIN Inactive AZITHROMYCIN 250 MG ORAL TABLET 2 po qd x 1 day, then 1 po qd x 4 days 07/12 AZITHROMYCIN 250 MG ORAL TABLET 287356 AZITHROMYCIN Inactive PREDNISONE 20 MG ORAL TABLET 2 tabs daily for 3 days, 1 tab daily for 3 days, 1/2 tab daily for 2 days PREDNISONE 20 MG ORAL TABLET 573170 PREDNISONE Inactive DOXYCYCLINE HYCLATE 100 MG ORAL CAPSULE 1 cap by mouth BID x10 days DOXYCYCLINE HYCLATE 100 MG ORAL CAPSULE 0931972 DOXYCYCLINE HYCLATE Inactive ZITHROMAX 250 MG ORAL TABLET Take two (2 ) tablets day one, then one (1) tablet a day for four (4) more days ZITHROMAX 250 MG ORAL TABLET 182784 AZITHROMYCIN Inactive Advance Directives Directive Description Start [...] Measured Encounters Code Encounter Date Provider Facility CPT-85935 Level 3 Est. Patient 15:59:25 SENIOR TECHNICAL EDITOR Piotr Daley DO [facility] CPT-49372 Level 3 Est. Patient 12:33:59 SENIOR TECHNICAL EDITOR Piotr Daley DO [facility] CPT-75389 Level 3 Est. Patient 15:56:17 SENIOR TECHNICAL EDITOR Piotr Daley DO [facility] CPT-89263 Level 3 Est. Patient 10:34:54 SENIOR TECHNICAL EDITOR Piotr Daley [facility] CPT-34884 Level 3 Est. Patient 17:10:19 MALACHI Harris APRN [facility] CPT-40872 Level 3 Est. Patient 10:48:17 SENIOR TECHNICAL EDITOR Matthew Rangel MD [facility] CPT-97121 Level 4 Est. Patient 17:15:07 SENIOR TECHNICAL EDITOR Piotr Daley [facility] CPT-92131 Level 3 Est. Patient 12:46:13 SENIOR TECHNICAL EDITOR Piotr Daley [facility] CPT-00217 Level 3 Est. Patient 15:14:31 SENIOR TECHNICAL EDITOR Piotr Daley [facility] CPT-17025 Level 3 Est. Patient 09:20:13 SENIOR TECHNICAL EDITOR Piotr Daley [facility] CPT-86081 Level 3 Est. Patient 09:49:40 CDT Piotr Daley [facility] CPT-16097 Level 3 Est. Patient 16:28:11 CDT Piotr Daley [facility] CPT-05939 Level 3 Est. Patient 12:41:58 SENIOR TECHNICAL EDITOR Piotr Daley [facility] CPT-08174 Level 3 Est. Patient 09:21:24 CDT Piotr Daley [facility] CPT-76910 Level 3 Est. Patient 09:21:11 CDT Piotr Daley [facility] CPT-97998 Level 3 Est. Patient 11:16:29 SENIOR TECHNICAL EDITOR Piotr Daley [facility] CPT-30659 Level 3 Est. Patient 18:40:19 SENIOR TECHNICAL EDITOR Piotr Daley [facility] CPT-97026 Level 3 Est. Patient 19:30:50 CDT Piotr [facility] CPT-77362 Level 3 Est. Patient 22:06:44 CDT Katrina Rinaldi MD PhD [facility] CPT-73910 Level 3 Est. Patient 14:20:00 CDT Piotr Daley [facility] CPT-07432 Level 3 Est. Patient 14:15:22 SENIOR TECHNICAL EDITOR Piotr Daley [facility] CPT-29541 Level 3 Est. Patient 20:19:57 SENIOR TECHNICAL EDITOR Piotr Daley [facility] CPT-62075 Level 3 Est. Patient 16:44:32 CDT Piotr Daley [facility] CPT-68250 Level 3 Est. Patient 08:48:46 SENIOR TECHNICAL EDITOR Piotr Daley [facility] CPT-44093 Level 3 Est. Patient 21:01:21 CDT Piotr Daley [facility] Procedures Code Procedure Name Date Entry Date Standard Description CPT-19766 Sacroiliac jt < 3V - XRAY USE ONLY 16:45:19 SENIOR TECHNICAL EDITOR 05/09 CPT-32837 LS spine comp w obliques - XRAY USE ONLY 14:52:26 [facility] CPT-26312 Chest, 2 views 12:55:58 [facility] CPT-G0439 Subsequent Annual Wellness Exam 10:34:52 [facility] CPT-09348 BMP - LAB USE ONLY 17:19:11 [facility] CPT-65113 PT/INR - LAB USE ONLY 17:19:10 [facility] CPT-16415 Venipuncture Draw Fee 17:19:10 [facility] CPT-11172 PT/INR - LAB USE ONLY 08:12:25 SENIOR TECHNICAL EDITOR CPT-33390 Venipuncture Draw Fee 08:12:24 SENIOR TECHNICAL EDITOR CPT-87346 Venipuncture Draw Fee 11:31:07 SENIOR TECHNICAL EDITOR CPT-98998 TPSA - LAB USE ONLY 11:31:07 SENIOR TECHNICAL EDITOR CPT-64167 PT/INR - LAB USE ONLY 11:31:07 SENIOR TECHNICAL EDITOR CPT-G0439 Subsequent Annual Wellness Exam 09:59:29 SENIOR TECHNICAL EDITOR CPT-62343 Creatinine - LAB USE ONLY 14:37:55 SENIOR TECHNICAL EDITOR CPT-12184 PT/INR - LAB USE ONLY 14:37:55 SENIOR TECHNICAL EDITOR CPT-62555 Venipuncture Draw Fee 14:37:55 SENIOR TECHNICAL EDITOR CPT-68075 LS spine comp w obliques - XRAY USE ONLY 12:59:25 SENIOR TECHNICAL EDITOR CPT-64957 PT/INR - LAB USE ONLY 13:49:20 CDT CPT-81629 Venipuncture Draw Fee 13:49:19 CDT CPT-42371 PT/INR - LAB USE ONLY 15:48:49 CDT CPT-85498 Venipuncture Draw Fee 15:48:49 CDT CPT-18188 Venipuncture Draw Fee 11:31:59 CDT CPT-22343 PT/INR - LAB USE ONLY 11:31:59 CDT CPT-82774 Venipuncture Draw Fee 13:29:15 CDT CPT-45762 Thoracolumbar AP/Lat 15:19:19 SENIOR TECHNICAL EDITOR CPT-G0438 Initial Annual Wellness Exam 12:18:54 SENIOR TECHNICAL EDITOR CPT-19563 Knee 3V 09:57:38 CDT CPT-OV Office Visit 15:45:01 SENIOR TECHNICAL EDITOR CPT-73173 Abd compl w upright 17:10:25 CDT
--- OUTSIDE RECORDS SUMMARY | 2018-07-18 10:40 | XMS REPORT | Clinical Summary ---
Author Author Admin, [employer] Organization [employer] Address Unknown Phone Unavailable Allergies, Adverse Reactions, [...] neoplasm of prostate V10.46 Active Alina Meyers [employer] Personal history of malignant neoplasm of prostate [...] Knee pain, left ICD-719.46 Inactive Sirisha Chen [employer] Actinic keratoses ICD-702.0 Inactive Sirisha Chen [employer] Back pain, thoracic region, left ICD-724.1 Inactive Piotr Daley DO Thoracic back pain ICD-724.5 Inactive Sirisha Chen [employer] Back pain lumbar ICD-724.2 Inactive Sirisha Chen [employer] Insect bite ICD-919.4 Inactive Sirisha Chen [employer] Pruritus ICD-698.9 Inactive Sirisha Chen [employer] 04/09 Bronchitis-Acute ICD-466.0 Inactive Sirisha Chen [employer] Dyspnea ICD-786.09 Inactive Sirisha Chen [employer] 05/09 Medication List Medication Instructions Start Date Stop Date Generic Name NDC Status Provider Patient Instruction WARFARIN SODIUM 4 MG ORAL TABLET 1 tablet by mouth daily WARFARIN SODIUM 75061600264 Active Anahy Hall Active MELOXICAM 15 MG ORAL TABLET 1 po q day for pain with food MELOXICAM 58773991016 Active Piotr Daley DO Active PREDNISONE 10 MG ORAL TABLET 1 tablet by mouth daily PREDNISONE 64610580150 No Longer Active Emelyn Norris Active TESSALON PERLES 100 MG ORAL CAPSULE 1-2 tablet by mouth 3 times daily 04/16 BENZONATATE 43496412731 No Longer Active Emelyn Norris Active PREDNISONE 20 MG ORAL TABLET two tabs by mouth today, then one tab by mouth days two and three PREDNISONE 47015569177 No Longer Active Piotr Daley DO Active CYCLOBENZAPRINE HCL 10 MG ORAL TABLET 1 tablet by mouth three times daily as needed for muscle spasm/pain CYCLOBENZAPRINE HCL 40007012277 Active Sirisha Gustavo [employer] Active ZITHROMAX 250 MG ORAL TABLET Take two (2 ) tablets day one, then one (1) tablet a day for four (4) more days AZITHROMYCIN 74631675956 No Longer Active Piotr Daley DO Active PROAIR HFA 108 (90 BASE) MCG/ACT INHALATION AEROSOL SOLUTION 1-2 puffs four times a day as needed ALBUTEROL SULFATE 59371707045 No Longer Active Emelyn Norris Active DOXYCYCLINE HYCLATE 100 MG ORAL CAPSULE 1 cap by mouth BID x10 days DOXYCYCLINE HYCLATE 65060982925 No Longer Active Nella Harris APRN Active PREDNISONE 20 MG ORAL TABLET 2 tabs daily for 3 days, 1 tab daily for 3 days, 1/2 tab daily for 2 days PREDNISONE 17430265316 No Longer Active Matthew Rangel MD Active TRAMADOL HCL 50 MG ORAL TABLET 1 po tid with ES Tylenol TRAMADOL HCL 30844678581 No Longer Active Matthew Rangel MD Active GABAPENTIN 300 MG ORAL CAPSULE 1 po q hs for nerve pain GABAPENTIN 07982541222 No Longer Active Matthew Rangel MD Active PREDNISONE 20 MG ORAL TABLET 2 tablets today, then 1 tablet days 2 through 4 PREDNISONE 27992061936 No Longer Active Piotr Daley DO Active AZITHROMYCIN 250 MG ORAL TABLET 2 po qd x 1 day, then 1 po qd x 4 days 07/12 AZITHROMYCIN 43168677341 No Longer Active Piotr Daley DO Active IBUPROFEN 800 MG ORAL TABLET 1 tab every 8 hours as needed 07/12 IBUPROFEN 39132602373 No Longer Active Piotr Daley DO Active LOMOTIL 2.5-0.025 MG ORAL TABLET 1 to 2 four times a day as needed for diarrhea DIPHENOXYLATE-ATROPINE 95906284301 No Longer Active Piotr W Edi DO Active WARFARIN SODIUM 4 MG ORAL TABLET 1 tab every evening WARFARIN SODIUM 71704847088 No Longer Active Piotr Daley DO Active PREDNISONE 20 MG ORAL TABLET 1 tablet twice daily for 2 days, then 1 tablet once daily for 2 days PREDNISONE 80997357048 No Longer Active Piotr Daley DO Active PROMETHAZINE HCL 25 MG ORAL TABLET 1 four times a day as needed for nausea/ vomiting PROMETHAZINE HCL 26444509885 No Longer Active Piotr Daley DO Active TUSSIONEX PENNKINETIC ER 10-8 MG/5ML ORAL SUSPENSION EXTENDED RELEASE 5ml po q12hr PRN Cough HYDROCOD POLST-CHLORPHEN POLST 39388433909 No Longer Active Piotr Daley DO Active AZITHROMYCIN 250 MG ORAL TABLET 2 po qd x 1 day, then 1 po qd x 4 days 10/13 AZITHROMYCIN 22270767574 No Longer Active Piotr Daley DO Active AZITHROMYCIN 250 MG ORAL TABLET 2 po qd x 1 day, then 1 po qd x 4 days 05/07 AZITHROMYCIN 70791507338 No Longer Active Piotr Daley DO Active LISINOPRIL-HYDROCHLOROTHIAZIDE 10-12.5 MG ORAL TABLET 1 tab by mouth daily LISINOPRIL-HYDROCHLOROTHIAZIDE 47365408685 Active Piotr Daley DO Active LISINOPRIL 10 MG ORAL TABLET 1/2-1 tab po every other day LISINOPRIL 57577292702 No Longer Active Piotr Daley DO Active VENTOLIN HFA 108 (90 Base) MCG/ACT INHALATION AEROSOL SOLUTION 2 puffs four times a day PRN cough ALBUTEROL SULFATE 30074746401 No Longer Active Piotr Daley DO Active NYSTATIN-TRIAMCINOLONE 881650-1.1 UNIT/GM-% EXTERNAL CREAM Apply to area BID NYSTATIN-TRIAMCINOLONE 79723276922 No Longer Active Alena Chavira [employer] Active PHISOHEX 3 % LIQD Use Directed HEXACHLOROPHENE 15759972858 No Longer Active Sandra [place] Active AZITHROMYCIN 250 MG ORAL TABLET 2 po qd x 1 day, then 1 po qd x 4 days 10/21 AZITHROMYCIN 26129349264 No Longer Active Katrina Rinaldi MD PhD Active AZITHROMYCIN 250 MG ORAL TABLET 2 po qd x 1 day, then 1 po qd x 4 days 10/16 AZITHROMYCIN 66067347269 No Longer Active Piort Daley DO Active AZITHROMYCIN 500 MG INTRAVENOUS SOLUTION RECONSTITUTED 1 po q day AZITHROMYCIN 24658034242 No Longer Active Piotr Daley DO Active NYSTATIN-TRIAMCINOLONE 666230-2.1 UNIT/GM-% EXTERNAL CREAM apply bid NYSTATIN-TRIAMCINOLONE 27621975147 No Longer Active Piotr Daley DO Active IBUPROFEN 800 MG ORAL TABLET 1 po q 8 hours prn pain sparinly IBUPROFEN 61204602625 No Longer Active Piotr Daley DO Active VITAMIN D3 5000 UNIT ORAL CAPSULE 1 po daily CHOLECALCIFEROL 63705433613 Active Piotr Daley DO Active IBUPROFEN 800 MG ORAL TABLET 1 po q 8 hours prn pain sparinly IBUPROFEN 800 MG ORAL TABLET 592018 IBUPROFEN Inactive NYSTATIN-TRIAMCINOLONE 249562-1.1 UNIT/GM-% EXTERNAL CREAM apply bid NYSTATIN-TRIAMCINOLONE 308169-4.1 UNIT/GM-% EXTERNAL CREAM 6924327 NYSTATIN-TRIAMCINOLONE Inactive AZITHROMYCIN 500 MG INTRAVENOUS SOLUTION RECONSTITUTED 1 po q day AZITHROMYCIN 500 MG INTRAVENOUS SOLUTION RECONSTITUTED 02134273698 AZITHROMYCIN Inactive VENTOLIN HFA 108 (90 Base) MCG/ACT INHALATION AEROSOL SOLUTION 2 puffs four times a day PRN cough VENTOLIN HFA 108 (90 Base) MCG/ ACT INHALATION AEROSOL SOLUTION ALBUTEROL SULFATE Inactive LISINOPRIL 10 MG ORAL TABLET 1/2-1 tab po every other day LISINOPRIL 10 MG ORAL TABLET 697955 LISINOPRIL Inactive TUSSIONEX PENNKINETIC ER 10-8 MG/5ML ORAL SUSPENSION EXTENDED RELEASE 5ml po q12hr PRN Cough TUSSIONEX PENNKINETIC ER 10-8 MG/5ML ORAL SUSPENSION EXTENDED RELEASE HYDROCOD POLST-CHLORPHEN POLST Inactive PROMETHAZINE HCL 25 MG ORAL TABLET 1 four times a day as needed for nausea/ vomiting PROMETHAZINE HCL 25 MG ORAL TABLET 240499 PROMETHAZINE HCL Inactive PREDNISONE 20 MG ORAL TABLET 1 tablet twice daily for 2 days, then 1 tablet once daily for 2 days PREDNISONE 20 MG ORAL TABLET 510402 PREDNISONE Inactive WARFARIN SODIUM 4 MG ORAL TABLET 1 tab every evening WARFARIN SODIUM 4 MG ORAL TABLET 487223 WARFARIN SODIUM Inactive LOMOTIL 2.5-0.025 MG ORAL TABLET 1 to 2 four times a day as needed for diarrhea LOMOTIL 2.5-0.025 MG ORAL TABLET 6241502 DIPHENOXYLATE-ATROPINE Inactive IBUPROFEN 800 MG ORAL TABLET 1 tab every 8 hours as needed 07/12 IBUPROFEN 800 MG ORAL TABLET 208119 IBUPROFEN Inactive PREDNISONE 20 MG ORAL TABLET 2 tablets today, then 1 tablet days 2 through 4 PREDNISONE 20 MG ORAL TABLET 775091 PREDNISONE Inactive GABAPENTIN 300 MG ORAL CAPSULE 1 po q hs for nerve pain GABAPENTIN 300 MG ORAL CAPSULE 449855 GABAPENTIN Inactive TRAMADOL HCL 50 MG ORAL TABLET 1 po tid with ES Tylenol TRAMADOL HCL 50 MG ORAL TABLET 430003 TRAMADOL HCL Inactive PROAIR HFA 108 (90 BASE) MCG/ACT INHALATION AEROSOL SOLUTION 1-2 puffs four times a day as needed PROAIR HFA 108 (90 BASE) MCG/ACT INHALATION AEROSOL SOLUTION ALBUTEROL SULFATE Inactive PREDNISONE 20 MG ORAL TABLET two tabs by mouth today, then one tab by mouth days two and three PREDNISONE 20 MG ORAL TABLET 799357 PREDNISONE Inactive TESSALON PERLES 100 MG ORAL CAPSULE 1-2 tablet by mouth 3 times daily 04/16 TESSALON PERLES 100 MG ORAL CAPSULE 302296 BENZONATATE Inactive PREDNISONE 10 MG ORAL TABLET 1 tablet by mouth daily PREDNISONE 10 MG ORAL TABLET 799828 PREDNISONE Inactive AZITHROMYCIN 250 MG ORAL TABLET 2 po qd x 1 day, then 1 po qd x 4 days 10/16 AZITHROMYCIN 250 MG ORAL TABLET 124863 AZITHROMYCIN Inactive AZITHROMYCIN 250 MG ORAL TABLET 2 po qd x 1 day, then 1 po qd x 4 days 10/21 AZITHROMYCIN 250 MG ORAL TABLET 566819 AZITHROMYCIN Inactive NYSTATIN-TRIAMCINOLONE 447386-7.1 UNIT/GM-% EXTERNAL CREAM Apply to area BID NYSTATIN-TRIAMCINOLONE 437261-3.1 UNIT/GM-% EXTERNAL CREAM 9412452 NYSTATIN-TRIAMCINOLONE Inactive AZITHROMYCIN 250 MG ORAL TABLET 2 po qd x 1 day, then 1 po qd x 4 days 05/07 AZITHROMYCIN 250 MG ORAL TABLET 198253 AZITHROMYCIN Inactive AZITHROMYCIN 250 MG ORAL TABLET 2 po qd x 1 day, then 1 po qd x 4 days 10/13 AZITHROMYCIN 250 MG ORAL TABLET 128407 AZITHROMYCIN Inactive AZITHROMYCIN 250 MG ORAL TABLET 2 po qd x 1 day, then 1 po qd x 4 days 07/12 AZITHROMYCIN 250 MG ORAL TABLET 108249 AZITHROMYCIN Inactive PREDNISONE 20 MG ORAL TABLET 2 tabs daily for 3 days, 1 tab daily for 3 days, 1/2 tab daily for 2 days PREDNISONE 20 MG ORAL TABLET 043430 PREDNISONE Inactive DOXYCYCLINE HYCLATE 100 MG ORAL CAPSULE 1 cap by mouth BID x10 days DOXYCYCLINE HYCLATE 100 MG ORAL CAPSULE 1506080 DOXYCYCLINE HYCLATE Inactive ZITHROMAX 250 MG ORAL TABLET Take two (2 ) tablets day one, then one (1) tablet a day for four (4) more days ZITHROMAX 250 MG ORAL TABLET 151192 AZITHROMYCIN Inactive Advance Directives Directive Description Start [...] Measured Encounters Code Encounter Date Provider Facility CPT-46358 Level 3 Est. Patient 15:59:25 [employer]AR[employer]UCATION [employer] Piotr Daley DO [facility] CPT-86299 Level 3 Est. 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 Patient 15:56:17 EARLY EDUCATION TEACHER Piotr Daley DO [facility] CPT-30233 Level 3 Est. Patient 10:34:54 EARLY EDUCATION TEACHER Piotr Daley [facility] CPT-69600 Level 3 Est. Patient 17:10:19 MALACHI Harris APRN [facility] CPT-87278 Level 3 Est. Patient 10:48:17 [employer]ARLY EDUCATION TEACHER Matthew Rangel MD [facility] CPT-28019 Level 4 Est. Patient 17:15:07 EARLY EDUCATION TEACHER Piotr Daley [facility] CPT-98895 Level 3 Est. Patient 12:46:13 EARLY EDUCATION TEACHER Piotr Daley [facility] CPT-06253 Level 3 Est. Patient 15:14:31 EARLY EDUCATION TEACHER Piotr Daley [facility] CPT-48796 Level 3 Est. Patient 09:20:13 EARLY EDUCATION TEACHER Piotr Daley [facility] CPT-15354 Level 3 Est. Patient 09:49:40 CDT Piotr Daley [facility] CPT-90702 Level 3 Est. Patient 16:28:11 CDT Piotr Daley [facility] CPT-56417 Level 3 Est. Patient 12:41:58 EAR[employer] EDUCATION TEACHER Piotr Daley [facility] CPT-99022 Level 3 Est. Patient 09:21:24 CDT Piotr Daley [facility] CPT-23453 Level 3 Est. Patient 09:21:11 CDT Piotr Daley [facility] CPT-89471 Level 3 Est. Patient 11:16:29 EARLY EDUCATION TEACHER Piotr Daley [facility] CPT-27482 Level 3 Est. Patient 18:40:19 EARLY EDUCATION TEACHER Piotr Daley [facility] CPT-01021 Level 3 Est. Patient 19:30:50 CDT Piotr Wilson [facility] CPT-77051 Level 3 Est. Patient 22:06:44 CDT Katrina Rinaldi MD PhD [facility] CPT-92767 Level 3 Est. Patient 14:20:00 CDT Piotr Daley [facility] CPT-48266 Level 3 Est. Patient 14:15:22 EARLY EDUCATION TEACHER Piotr Daley [facility] CPT-62102 Level 3 Est. Patient 20:19:57 EAR[employer] EDUCATION TEACHER Piotr Daley [facility] CPT-81672 Level 3 Est. Patient 16:44:32 CDT Piotr Daley [facility] CPT-03639 Level 3 Est. Patient 08:48:46 EAR[employer] EDUCATION TEACHER Piotr Daley [facility] CPT-41356 Level 3 Est. Patient 21:01:21 CDT Piotr Daley [facility] Procedures Code Procedure Name Date Entry Date Standard Description CPT-42653 Sacroiliac jt < 3V - XRAY USE ONLY 16:45:19 [employer]AR[employer] EDUCATION TEACHER 05/09 CPT-02234 LS spine comp w obliques - XRAY USE ONLY 14:52:26 [facility] [place] CPT-83247 Chest, 2 views 12:55:58 [facility] [place] CPT-G0439 Subsequent Annual Wellness Exam 10:34:52 [facility] [place] CPT-67152 BMP - LAB USE ONLY 17:19:11 [facility] [place] CPT-76333 PT/INR - LAB USE ONLY 17:19:10 [facility] [place] CPT-78277 Venipuncture Draw Fee 17:19:10 [facility] [place] CPT-41815 PT/INR - LAB USE ONLY 08:12:25 [employer] CPT-79593 Venipuncture Draw Fee 08:12:24 [employer]UC[employer] CPT-15668 Venipuncture Draw Fee 11:31:07 [employer] EDUCATION TEACHER CPT-10725 TPSA - LAB USE ONLY 11:31:07 [employer]UCATION TE[employer]ER CPT-69110 PT/INR - LAB USE ONLY 11:31:07 [employer]UCATION TE[employer]ER CPT-G0439 Subsequent Annual Wellness Exam 09:59:29 [employer]UCATION TE[employer] CPT-32129 Creatinine - LAB USE ONLY 14:37:55 [employer]AR[employer]UCATION TEACHER CPT-48826 PT/INR - LAB USE ONLY 14:37:55 EAR[employer] EDUCATION TEACHER CPT-69232 Venipuncture Draw Fee 14:37:55 EAR[employer] EDUCATION TEACHER CPT-38668 LS spine comp w obliques - XRAY USE ONLY 12:59:25 EAR[employer] EDUCATION TEACHER CPT-42747 PT/INR - LAB USE ONLY 13:49:20 CDT CPT-24035 Venipuncture Draw Fee 13:49:19 CDT CPT-47219 PT/INR - LAB USE ONLY 15:48:49 CDT CPT-26671 Venipuncture Draw Fee 15:48:49 CDT CPT-94881 Venipuncture Draw Fee 11:31:59 CDT CPT-59871 PT/INR - LAB USE ONLY 11:31:59 CDT CPT-39949 Venipuncture Draw Fee 13:29:15 CDT CPT-57318 Thoracolumbar AP/Lat 15:19:19 [employer]UCATION TE[employer] CPT-G0438 Initial Annual Wellness Exam 12:18:54 [employer]AR[employer] EDUCATION TEACHER CPT-98190 Knee 3V 09:57:38 CDT CPT-OV Office Visit 15:45:01 E[employer]LY EDUCATION TEACHER CPT-29327 Abd compl w upright 17:10:25 CDT
--- OUTSIDE RECORDS SUMMARY | 2018-07-18 10:41 | XMS REPORT | Clinical Summary ---
Author Author Admin, [employer] Address Unknown Phone Unavailable Allergies, Adverse Reactions, [...] Knee pain, left ICD-719.46 Inactive Sirisha Chen BREAST WORKER Actinic keratoses ICD-702.0 Inactive Sirisha Chen BREAST WORKER Back pain, thoracic region, left ICD-724.1 Inactive Piotr Daley DO Thoracic back pain ICD-724.5 Inactive Sirisha Chen BREAST WORKER Back pain lumbar ICD-724.2 Inactive Sirisha Chen BREAST WORKER Insect bite ICD-919.4 Inactive Sirisha Chen BREAST WORKER Pruritus ICD-698.9 Inactive Sirisha Chen BREAST WORKER 04/09 Bronchitis-Acute ICD-466.0 Inactive Sirisha Chen BREAST WORKER Dyspnea ICD-786.09 Inactive Sirisha Chen BREAST WORKER 05/09 Medication List Medication Instructions Start Date Stop Date Generic Name NDC Status Provider Patient Instruction WARFARIN SODIUM 4 MG ORAL TABLET 1 tablet by mouth daily WARFARIN SODIUM 83004818492 Active Anahy Hall Active MELOXICAM 15 MG ORAL TABLET 1 po q day for pain with food MELOXICAM 16851400876 Active Piotr Daley DO Active PREDNISONE 10 MG ORAL TABLET 1 tablet by mouth daily PREDNISONE 35449630120 No Longer Active Emelyn Norris Active TESSALON PERLES 100 MG ORAL CAPSULE 1-2 tablet by mouth 3 times daily 04/16 BENZONATATE 61349043486 No Longer Active Emelyn Norris Active PREDNISONE 20 MG ORAL TABLET two tabs by mouth today, then one tab by mouth days two and three PREDNISONE 50568849597 No Longer Active Piotr Daley DO Active CYCLOBENZAPRINE HCL 10 MG ORAL TABLET 1 tablet by mouth three times daily as needed for muscle spasm/pain CYCLOBENZAPRINE HCL 30210244549 Active Sirisha Chen BREAST WORKER Active ZITHROMAX 250 MG ORAL TABLET Take two (2 ) tablets day one, then one (1) tablet a day for four (4) more days AZITHROMYCIN 55518034251 No Longer Active Piotr Daley DO Active PROAIR HFA 108 (90 BASE) MCG/ACT INHALATION AEROSOL SOLUTION 1-2 puffs four times a day as needed ALBUTEROL SULFATE 42802450077 No Longer Active Emelyn Norris Active DOXYCYCLINE HYCLATE 100 MG ORAL CAPSULE 1 cap by mouth BID x10 days DOXYCYCLINE HYCLATE 83436300383 No Longer Active Nella Harris REGULATORY LEADER Active PREDNISONE 20 MG ORAL TABLET 2 tabs daily for 3 days, 1 tab daily for 3 days, 1/2 tab daily for 2 days PREDNISONE 70385252889 No Longer Active Matthwe Rangel MD Active TRAMADOL HCL 50 MG ORAL TABLET 1 po tid with ES Tylenol TRAMADOL HCL 36980798538 No Longer Active Matthew Rangel MD Active GABAPENTIN 300 MG ORAL CAPSULE 1 po q hs for nerve pain GABAPENTIN 55900822275 No Longer Active Matthew Rangel MD Active PREDNISONE 20 MG ORAL TABLET 2 tablets today, then 1 tablet days 2 through 4 PREDNISONE 47190111817 No Longer Active Piotr Daley DO Active AZITHROMYCIN 250 MG ORAL TABLET 2 po qd x 1 day, then 1 po qd x 4 days 07/12 AZITHROMYCIN 49617937948 No Longer Active Piotr Daley DO Active IBUPROFEN 800 MG ORAL TABLET 1 tab every 8 hours as needed 07/12 IBUPROFEN 02649987902 No Longer Active Piotr Daley DO Active LOMOTIL 2.5-0.025 MG ORAL TABLET 1 to 2 four times a day as needed for diarrhea DIPHENOXYLATE-ATROPINE 89634712885 No Longer Active Piotr W Edi DO Active WARFARIN SODIUM 4 MG ORAL TABLET 1 tab every evening WARFARIN SODIUM 64624801367 No Longer Active Piotr Daley DO Active PREDNISONE 20 MG ORAL TABLET 1 tablet twice daily for 2 days, then 1 tablet once daily for 2 days PREDNISONE 56002325555 No Longer Active Piotr Daley DO Active PROMETHAZINE HCL 25 MG ORAL TABLET 1 four times a day as needed for nausea/ vomiting PROMETHAZINE HCL 53082323338 No Longer Active Piotr Daley DO Active TUSSIONEX PENNKINETIC ER 10-8 MG/5ML ORAL SUSPENSION EXTENDED RELEASE 5ml po q12hr PRN Cough HYDROCOD POLST-CHLORPHEN POLST 89630494305 No Longer Active Piotr Daley DO Active AZITHROMYCIN 250 MG ORAL TABLET 2 po qd x 1 day, then 1 po qd x 4 days 10/13 AZITHROMYCIN 21885142714 No Longer Active Piotr Daley DO Active AZITHROMYCIN 250 MG ORAL TABLET 2 po qd x 1 day, then 1 po qd x 4 days 05/07 AZITHROMYCIN 34435837305 No Longer Active Piotr Daley DO Active LISINOPRIL-HYDROCHLOROTHIAZIDE 10-12.5 MG ORAL TABLET 1 tab by mouth daily LISINOPRIL-HYDROCHLOROTHIAZIDE 99151857601 Active Piotr Daley DO Active LISINOPRIL 10 MG ORAL TABLET 1/2-1 tab po every other day LISINOPRIL 15639112944 No Longer Active Piotr Daley DO Active VENTOLIN HFA 108 (90 Base) MCG/ACT INHALATION AEROSOL SOLUTION 2 puffs four times a day PRN cough ALBUTEROL SULFATE 66589869479 No Longer Active Piotr Daley DO Active NYSTATIN-TRIAMCINOLONE 447460-2.1 UNIT/GM-% EXTERNAL CREAM Apply to area BID NYSTATIN-TRIAMCINOLONE 25278506399 No Longer Active Alena Chavira BREAST WORKER Active PHISOHEX 3 % LIQD Use Directed HEXACHLOROPHENE 15763437477 No Longer Active Sandra Culleoka Active AZITHROMYCIN 250 MG ORAL TABLET 2 po qd x 1 day, then 1 po qd x 4 days 10/21 AZITHROMYCIN 76990623445 No Longer Active Katrina Rinaldi MD PhD Active AZITHROMYCIN 250 MG ORAL TABLET 2 po qd x 1 day, then 1 po qd x 4 days 10/16 AZITHROMYCIN 61296533544 No Longer Active Piotr Daley DO Active AZITHROMYCIN 500 MG INTRAVENOUS SOLUTION RECONSTITUTED 1 po q day AZITHROMYCIN 22231618851 No Longer Active Piotr Daley DO Active NYSTATIN-TRIAMCINOLONE 280578-4.1 UNIT/GM-% EXTERNAL CREAM apply bid NYSTATIN-TRIAMCINOLONE 18086233374 No Longer Active Piotr Daley DO Active IBUPROFEN 800 MG ORAL TABLET 1 po q 8 hours prn pain sparinly IBUPROFEN 71335076740 No Longer Active Piotr Daley DO Active VITAMIN D3 5000 UNIT ORAL CAPSULE 1 po daily CHOLECALCIFEROL 13432688351 Active Piotr Daley DO Active IBUPROFEN 800 MG ORAL TABLET 1 po q 8 hours prn pain sparinly IBUPROFEN 800 MG ORAL TABLET 210240 IBUPROFEN Inactive NYSTATIN-TRIAMCINOLONE 112060-3.1 UNIT/GM-% EXTERNAL CREAM apply bid NYSTATIN-TRIAMCINOLONE 163994-7.1 UNIT/GM-% EXTERNAL CREAM 1465821 NYSTATIN-TRIAMCINOLONE Inactive AZITHROMYCIN 500 MG INTRAVENOUS SOLUTION RECONSTITUTED 1 po q day AZITHROMYCIN 500 MG INTRAVENOUS SOLUTION RECONSTITUTED 75257856599 AZITHROMYCIN Inactive VENTOLIN HFA 108 (90 Base) MCG/ACT INHALATION AEROSOL SOLUTION 2 puffs four times a day PRN cough VENTOLIN HFA 108 (90 Base) MCG/ ACT INHALATION AEROSOL SOLUTION ALBUTEROL SULFATE Inactive LISINOPRIL 10 MG ORAL TABLET 1/2-1 tab po every other day LISINOPRIL 10 MG ORAL TABLET 480602 LISINOPRIL Inactive TUSSIONEX PENNKINETIC ER 10-8 MG/5ML ORAL SUSPENSION EXTENDED RELEASE 5ml po q12hr PRN Cough TUSSIONEX PENNKINETIC ER 10-8 MG/5ML ORAL SUSPENSION EXTENDED RELEASE HYDROCOD POLST-CHLORPHEN POLST Inactive PROMETHAZINE HCL 25 MG ORAL TABLET 1 four times a day as needed for nausea/ vomiting PROMETHAZINE HCL 25 MG ORAL TABLET 453039 PROMETHAZINE HCL Inactive PREDNISONE 20 MG ORAL TABLET 1 tablet twice daily for 2 days, then 1 tablet once daily for 2 days PREDNISONE 20 MG ORAL TABLET 733655 PREDNISONE Inactive WARFARIN SODIUM 4 MG ORAL TABLET 1 tab every evening WARFARIN SODIUM 4 MG ORAL TABLET 794687 WARFARIN SODIUM Inactive LOMOTIL 2.5-0.025 MG ORAL TABLET 1 to 2 four times a day as needed for diarrhea LOMOTIL 2.5-0.025 MG ORAL TABLET 6837543 DIPHENOXYLATE-ATROPINE Inactive IBUPROFEN 800 MG ORAL TABLET 1 tab every 8 hours as needed 07/12 IBUPROFEN 800 MG ORAL TABLET 718613 IBUPROFEN Inactive PREDNISONE 20 MG ORAL TABLET 2 tablets today, then 1 tablet days 2 through 4 PREDNISONE 20 MG ORAL TABLET 676665 PREDNISONE Inactive GABAPENTIN 300 MG ORAL CAPSULE 1 po q hs for nerve pain GABAPENTIN 300 MG ORAL CAPSULE 598477 GABAPENTIN Inactive TRAMADOL HCL 50 MG ORAL TABLET 1 po tid with ES Tylenol TRAMADOL HCL 50 MG ORAL TABLET 489489 TRAMADOL HCL Inactive PROAIR HFA 108 (90 BASE) MCG/ACT INHALATION AEROSOL SOLUTION 1-2 puffs four times a day as needed PROAIR HFA 108 (90 BASE) MCG/ACT INHALATION AEROSOL SOLUTION ALBUTEROL SULFATE Inactive PREDNISONE 20 MG ORAL TABLET two tabs by mouth today, then one tab by mouth days two and three PREDNISONE 20 MG ORAL TABLET 323250 PREDNISONE Inactive TESSALON PERLES 100 MG ORAL CAPSULE 1-2 tablet by mouth 3 times daily 04/16 TESSALON PERLES 100 MG ORAL CAPSULE 743424 BENZONATATE Inactive PREDNISONE 10 MG ORAL TABLET 1 tablet by mouth daily PREDNISONE 10 MG ORAL TABLET 928967 PREDNISONE Inactive AZITHROMYCIN 250 MG ORAL TABLET 2 po qd x 1 day, then 1 po qd x 4 days 10/16 AZITHROMYCIN 250 MG ORAL TABLET 516963 AZITHROMYCIN Inactive AZITHROMYCIN 250 MG ORAL TABLET 2 po qd x 1 day, then 1 po qd x 4 days 10/21 AZITHROMYCIN 250 MG ORAL TABLET 482181 AZITHROMYCIN Inactive NYSTATIN-TRIAMCINOLONE 057840-2.1 UNIT/GM-% EXTERNAL CREAM Apply to area BID NYSTATIN-TRIAMCINOLONE 005702-7.1 UNIT/GM-% EXTERNAL CREAM 1781810 NYSTATIN-TRIAMCINOLONE Inactive AZITHROMYCIN 250 MG ORAL TABLET 2 po qd x 1 day, then 1 po qd x 4 days 05/07 AZITHROMYCIN 250 MG ORAL TABLET 616684 AZITHROMYCIN Inactive AZITHROMYCIN 250 MG ORAL TABLET 2 po qd x 1 day, then 1 po qd x 4 days 10/13 AZITHROMYCIN 250 MG ORAL TABLET 597000 AZITHROMYCIN Inactive AZITHROMYCIN 250 MG ORAL TABLET 2 po qd x 1 day, then 1 po qd x 4 days 07/12 AZITHROMYCIN 250 MG ORAL TABLET 086026 AZITHROMYCIN Inactive PREDNISONE 20 MG ORAL TABLET 2 tabs daily for 3 days, 1 tab daily for 3 days, 1/2 tab daily for 2 days PREDNISONE 20 MG ORAL TABLET 191131 PREDNISONE Inactive DOXYCYCLINE HYCLATE 100 MG ORAL CAPSULE 1 cap by mouth BID x10 days DOXYCYCLINE HYCLATE 100 MG ORAL CAPSULE 9405287 DOXYCYCLINE HYCLATE Inactive ZITHROMAX 250 MG ORAL TABLET Take two (2 ) tablets day one, then one (1) tablet a day for four (4) more days ZITHROMAX 250 MG ORAL TABLET 616603 AZITHROMYCIN Inactive Advance Directives Directive Description Start [...] Measured Encounters Code Encounter Date Provider Facility CPT-44098 Level 3 Est. Patient 15:59:25 AUDIOLOGY TECHNICIAN Piotr Daley DO [facility] CPT-47211 Level 3 Est. Patient 12:33:59 AUDIOLOGY TECHNICIAN Piotr Daley DO [facility] CPT-07193 Level 3 Est. Patient 15:56:17 AUDIOLOGY TECHNICIAN Piotr Daley DO [facility] CPT-21743 Level 3 Est. Patient 10:34:54 AUDIOLOGY TECHNICIAN Piotr Daley [facility] CPT-55831 Level 3 Est. Patient 17:10:19 MALACHI Harris APRN [facility] CPT-07477 Level 3 Est. Patient 10:48:17 AUDIOLOGY TECHNICIAN Matthew Rangel MD [facility] CPT-21805 Level 4 Est. Patient 17:15:07 AUDIOLOGY TECHNICIAN Piotr Daley [facility] CPT-86069 Level 3 Est. Patient 12:46:13 AUDIOLOGY TECHNICIAN Piotr Daley [facility] CPT-00004 Level 3 Est. Patient 15:14:31 AUDIOLOGY TECHNICIAN Piotr Daley [facility] CPT-24086 Level 3 Est. Patient 09:20:13 AUDIOLOGY TECHNICIAN Piotr Daley [facility] CPT-92965 Level 3 Est. Patient 09:49:40 CDT Piotr Daley [facility] CPT-34018 Level 3 Est. Patient 16:28:11 CDT Piotr Daley [facility] CPT-83263 Level 3 Est. Patient 12:41:58 AUDIOLOGY TECHNICIAN Piotr Daley [facility] CPT-68585 Level 3 Est. Patient 09:21:24 CDT Piotr Daley [facility] CPT-78309 Level 3 Est. Patient 09:21:11 CDT Piotr Daley [facility] CPT-97534 Level 3 Est. Patient 11:16:29 AUDIOLOGY TECHNICIAN Piotr Daley [facility] CPT-00118 Level 3 Est. Patient 18:40:19 AUDIOLOGY TECHNICIAN Piotr Daley [facility] CPT-60933 Level 3 Est. Patient 19:30:50 CDT Piotr Daley [facility] CPT-25335 Level 3 Est. Patient 22:06:44 CDT Katrina Rinaldi MD PhD [facility] CPT-43150 Level 3 Est. Patient 14:20:00 CDT Piotr Daley [facility] CPT-93912 Level 3 Est. Patient 14:15:22 AUDIOLOGY TECHNICIAN Piotr Daley [facility] CPT-36308 Level 3 Est. Patient 20:19:57 AUDIOLOGY TECHNICIAN Piotr Daley [facility] CPT-16791 Level 3 Est. Patient 16:44:32 CDT Piotr Daley [facility] CPT-46994 Level 3 Est. Patient 08:48:46 AUDIOLOGY TECHNICIAN Piotr Daley [facility] CPT-65502 Level 3 Est. Patient 21:01:21 CDT Piotr Daley [facility] Procedures Code Procedure Name Date Entry Date Standard Description CPT-20235 Sacroiliac jt < 3V - XRAY USE ONLY 16:45:19 AUDIOLOGY TECHNICIAN 05/09 CPT-52372 LS spine comp w obliques - XRAY USE ONLY 14:52:26 [facility] CPT-41199 Chest, 2 views 12:55:58 [facility] CPT-G0439 Subsequent Annual Wellness Exam 10:34:52 AUDIOLOGY TECHNICIAN CPT-53101 BMP - LAB USE ONLY 17:19:11 [facility] CPT-92944 PT/INR - LAB USE ONLY 17:19:10 [facility] CPT-43030 Venipuncture Draw Fee 17:19:10 [facility] CPT-18047 PT/INR - LAB USE ONLY 08:12:25 AUDIOLOGY TECHNICIAN CPT-35541 Venipuncture Draw Fee 08:12:24 AUDIOLOGY TECHNICIAN CPT-05582 Venipuncture Draw Fee 11:31:07 AUDIOLOGY TECHNICIAN CPT-29293 [facility]PS[facility] - LAB USE ONLY 11:31:07 AUDIOLOGY TECHNICIAN CPT-74406 PT/INR - LAB USE ONLY 11:31:07 AUDIOLOGY TECHNICIAN CPT-G0439 Subsequent Annual Wellness Exam 09:59:29 AUDIOLOGY TECHNICIAN CPT-68605 Creatinine - LAB USE ONLY 14:37:55 AUDIOLOGY TECHNICIAN CPT-14247 PT/INR - LAB USE ONLY 14:37:55 AUDIOLOGY TECHNICIAN CPT-39253 Venipuncture Draw Fee 14:37:55 AUDIOLOGY TECHNICIAN CPT-84070 LS spine comp w obliques - XRAY USE ONLY 12:59:25 AUDIOLOGY TECHNICIAN CPT-55759 PT/INR - LAB USE ONLY 13:49:20 CDT CPT-31236 Venipuncture Draw Fee 13:49:19 CDT CPT-11394 PT/INR - LAB USE ONLY 15:48:49 CDT CPT-27757 Venipuncture Draw Fee 15:48:49 CDT CPT-07170 Venipuncture Draw Fee 11:31:59 CDT CPT-11870 PT/INR - LAB USE ONLY 11:31:59 CDT CPT-94399 Venipuncture Draw Fee 13:29:15 CDT CPT-83884 Thoracolumbar AP/Lat 15:19:19 AUDIOLOGY TECHNICIAN CPT-G0438 Initial Annual Wellness Exam 12:18:54 AUDIOLOGY TECHNICIAN CPT-18688 Knee 3V 09:57:38 CDT CPT-OV Office Visit 15:45:01 AUDIOLOGY TECHNICIAN CPT-85318 Abd compl w upright 17:10:25 CDT
--- OUTSIDE RECORDS SUMMARY | 2018-07-18 10:42 | XMS REPORT | Clinical Summary ---
Author Author Admin, Isidra Organization [employer] Address Unknown Phone Unavailable Allergies, Adverse Reactions, [...] THROMBOPHLEBITIS, LEG, 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 Inactive Sirisha Chen RECREATION SUPERINTENDENT DEEP VENOUS THROMBOPHLEBITIS, LEG, 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 Inactive Sirisha Chen RECREATION SUPERINTENDENT Seborrheic keratosis ICD-702.19 Inactive Sirisha Chen RECREATION SUPERINTENDENT Bronchitis-Acute ICD-466.0 Inactive Piotr Daley DO Leg pain, right ICD-729.5 Inactive Sirisha Chen RECREATION SUPERINTENDENT Right leg pain ICD-729.5 Inactive Sirisha Chen RECREATION SUPERINTENDENT Bronchitis-Acute ICD-466.0 Inactive Sirisha Chen RECREATION SUPERINTENDENT Knee pain, left ICD-719.46 Inactive Sirisha Chen RECREATION SUPERINTENDENT Actinic keratoses ICD-702.0 Inactive Sirisha Chen RECREATION SUPERINTENDENT Back pain, thoracic region, left ICD-724.1 Inactive [...] as needed for muscle spasm/pain CYCLOBENZAPRINE HCL 12067492454 Active Piotr Daley DO Active PREDNISONE 20 MG ORAL TABLET two tabs by mouth today, then one tab by mouth days two and three PREDNISONE 32271712386 Active Piotr Katie Edi LEON Active ZITHROMAX 250 MG ORAL TABLET Take two (2 ) tablets day one, then one (1) tablet a day for four (4) more days AZITHROMYCIN 39492392495 Active Piotr Daley Active PROAIR HFA 108 (90 BASE) MCG/ACT INHALATION AEROSOL SOLUTION 1-2 puffs four times a day as needed ALBUTEROL SULFATE 96106289134 No Longer Active Emelyn Norris Active DOXYCYCLINE HYCLATE 100 MG ORAL CAPSULE 1 cap by mouth BID x10 days DOXYCYCLINE HYCLATE 59213590027 No Longer Active Nella Harris APRN Active WARFARIN SODIUM 5 MG ORAL TABLET 1 tablet daily M-S, 1/2 tab on Heart WARFARIN SODIUM 12948868012 Active Piotr Wilson Edi LEON Active PREDNISONE 20 MG ORAL TABLET 2 tabs daily for 3 days, 1 tab daily for 3 days, 1/2 tab daily for 2 days PREDNISONE 57874160919 No Longer Active Matthew Rangel MD Active TRAMADOL HCL 50 MG ORAL TABLET 1 po tid with ES Tylenol TRAMADOL HCL 17829387163 No Longer Active Matthew Rangel MD Active GABAPENTIN 300 MG ORAL CAPSULE 1 po q hs for nerve pain GABAPENTIN 60908919656 No Longer Active Matthew Rangel MD Active PREDNISONE 20 MG ORAL TABLET 2 tablets today, then 1 tablet days 2 through 4 PREDNISONE 28513215579 No Longer Active Piotr Daley DO Active AZITHROMYCIN 250 MG ORAL TABLET 2 po qd x 1 day, then 1 po qd x 4 days 07/12 AZITHROMYCIN 35805208080 No Longer Active Piotr Daley DO Active IBUPROFEN 800 MG ORAL TABLET 1 tab every 8 hours as needed 07/12 IBUPROFEN 97858691586 No Longer Active Piotr Daley DO Active LOMOTIL 2.5-0.025 MG ORAL TABLET 1 to 2 four times a day as needed for diarrhea DIPHENOXYLATE-ATROPINE 43170663235 No Longer Active Piotr Daley DO Active WARFARIN SODIUM 4 MG ORAL TABLET 1 tab every evening WARFARIN SODIUM 44428740352 No Longer Active Piotr Daley DO Active PREDNISONE 20 MG ORAL TABLET 1 tablet twice daily for 2 days, then 1 tablet once daily for 2 days PREDNISONE 97105102197 No Longer Active Piotr Daley DO Active PROMETHAZINE HCL 25 MG ORAL TABLET 1 four times a day as needed for nausea/ vomiting PROMETHAZINE HCL 37010945553 No Longer Active Piotr Daley DO Active TUSSIONEX PENNKINETIC ER 10-8 MG/5ML ORAL SUSPENSION EXTENDED RELEASE 5ml po q12hr PRN Cough HYDROCOD POLST-CHLORPHEN POLST 30410996129 No Longer Active Piotr Daley DO Active AZITHROMYCIN 250 MG ORAL TABLET 2 po qd x 1 day, then 1 po qd x 4 days 10/13 AZITHROMYCIN 99794310292 No Longer Active Piotr Daley DO Active AZITHROMYCIN 250 MG ORAL TABLET 2 po qd x 1 day, then 1 po qd x 4 days 05/07 AZITHROMYCIN 55015655580 No Longer Active Piotr Daley DO Active LISINOPRIL-HYDROCHLOROTHIAZIDE 10-12.5 MG ORAL TABLET 1 tab by mouth daily LISINOPRIL-HYDROCHLOROTHIAZIDE 95710999563 Active Piotr Daley DO Active LISINOPRIL 10 MG ORAL TABLET 1/2-1 tab po every other day LISINOPRIL 11261010251 No Longer Active Piotr Daley DO Active VENTOLIN HFA 108 (90 Base) MCG/ACT INHALATION AEROSOL SOLUTION 2 puffs four times a day PRN cough ALBUTEROL SULFATE 18427173352 No Longer Active Piotr Daley DO Active NYSTATIN-TRIAMCINOLONE 493621-6.1 UNIT/GM-% EXTERNAL CREAM Apply to area BID NYSTATIN-TRIAMCINOLONE 10630253757 No Longer Active Alena Chavira RECREATION SUPERINTENDENT Active PHISOHEX 3 % LIQD Use Directed HEXACHLOROPHENE 41877006934 No Longer Active Sandra [place] Active AZITHROMYCIN 250 MG ORAL TABLET 2 po qd x 1 day, then 1 po qd x 4 days 10/21 AZITHROMYCIN 96005482455 No Longer Active Katrina Rinaldi MD PhD Active AZITHROMYCIN 250 MG ORAL TABLET 2 po qd x 1 day, then 1 po qd x 4 days 10/16 AZITHROMYCIN 08338560025 No Longer Active Piotr Daley DO Active AZITHROMYCIN 500 MG INTRAVENOUS SOLUTION RECONSTITUTED 1 po q day AZITHROMYCIN 49513653127 No Longer Active Piotr Daley DO Active NYSTATIN-TRIAMCINOLONE 027761-5.1 UNIT/GM-% EXTERNAL CREAM apply bid NYSTATIN-TRIAMCINOLONE 18670367689 No Longer Active Piotr Daley DO Active IBUPROFEN 800 MG ORAL TABLET 1 po q 8 hours prn pain sparinly IBUPROFEN 22920711867 No Longer Active Piotr Daley DO Active VITAMIN D3 5000 UNIT ORAL CAPSULE 1 po daily CHOLECALCIFEROL 21299398309 Active Piotr Daley DO Active IBUPROFEN 800 MG ORAL TABLET 1 po q 8 hours prn pain sparinly IBUPROFEN 800 MG ORAL TABLET 028120 IBUPROFEN Inactive NYSTATIN-TRIAMCINOLONE 952816-3.1 UNIT/GM-% EXTERNAL CREAM apply bid NYSTATIN-TRIAMCINOLONE 669924-9.1 UNIT/GM-% EXTERNAL CREAM 5922206 NYSTATIN-TRIAMCINOLONE Inactive AZITHROMYCIN 500 MG INTRAVENOUS SOLUTION RECONSTITUTED 1 po q day AZITHROMYCIN 500 MG INTRAVENOUS SOLUTION RECONSTITUTED 06745109269 AZITHROMYCIN Inactive VENTOLIN HFA 108 (90 Base) MCG/ACT INHALATION AEROSOL SOLUTION 2 puffs four times a day PRN cough VENTOLIN HFA 108 (90 Base) MCG/ ACT INHALATION AEROSOL SOLUTION ALBUTEROL SULFATE Inactive LISINOPRIL 10 MG ORAL TABLET 1/2-1 tab po every other day LISINOPRIL 10 MG ORAL TABLET 546957 LISINOPRIL Inactive TUSSIONEX PENNKINETIC ER 10-8 MG/5ML ORAL SUSPENSION EXTENDED RELEASE 5ml po q12hr PRN Cough TUSSIONEX PENNKINETIC ER 10-8 MG/5ML ORAL SUSPENSION EXTENDED RELEASE HYDROCOD POLST-CHLORPHEN POLST Inactive PROMETHAZINE HCL 25 MG ORAL TABLET 1 four times a day as needed for nausea/ vomiting PROMETHAZINE HCL 25 MG ORAL TABLET 631848 PROMETHAZINE HCL Inactive PREDNISONE 20 MG ORAL TABLET 1 tablet twice daily for 2 days, then 1 tablet once daily for 2 days PREDNISONE 20 MG ORAL TABLET 112029 PREDNISONE Inactive WARFARIN SODIUM 4 MG ORAL TABLET 1 tab every evening WARFARIN SODIUM 4 MG ORAL TABLET 104241 WARFARIN SODIUM Inactive LOMOTIL 2.5-0.025 MG ORAL TABLET 1 to 2 four times a day as needed for diarrhea LOMOTIL 2.5-0.025 MG ORAL TABLET 5420078 DIPHENOXYLATE-ATROPINE Inactive IBUPROFEN 800 MG ORAL TABLET 1 tab every 8 hours as needed 07/12 IBUPROFEN 800 MG ORAL TABLET 741318 IBUPROFEN Inactive PREDNISONE 20 MG ORAL TABLET 2 tablets today, then 1 tablet days 2 through 4 PREDNISONE 20 MG ORAL TABLET 186723 PREDNISONE Inactive GABAPENTIN 300 MG ORAL CAPSULE 1 po q hs for nerve pain GABAPENTIN 300 MG ORAL CAPSULE 543521 GABAPENTIN Inactive TRAMADOL HCL 50 MG ORAL TABLET 1 po tid with ES Tylenol TRAMADOL HCL 50 MG ORAL TABLET 247086 TRAMADOL HCL Inactive PROAIR HFA 108 (90 BASE) MCG/ACT INHALATION AEROSOL SOLUTION 1-2 puffs four times a day as needed PROAIR HFA 108 (90 BASE) MCG/ACT INHALATION AEROSOL SOLUTION ALBUTEROL SULFATE Inactive AZITHROMYCIN 250 MG ORAL TABLET 2 po qd x 1 day, then 1 po qd x 4 days 10/16 AZITHROMYCIN 250 MG ORAL TABLET 994949 AZITHROMYCIN Inactive AZITHROMYCIN 250 MG ORAL TABLET 2 po qd x 1 day, then 1 po qd x 4 days 10/21 AZITHROMYCIN 250 MG ORAL TABLET 402626 AZITHROMYCIN Inactive NYSTATIN-TRIAMCINOLONE 748684-3.1 UNIT/GM-% EXTERNAL CREAM Apply to area BID NYSTATIN-TRIAMCINOLONE 597101-6.1 UNIT/GM-% EXTERNAL CREAM 8938426 NYSTATIN-TRIAMCINOLONE Inactive AZITHROMYCIN 250 MG ORAL TABLET 2 po qd x 1 day, then 1 po qd x 4 days 05/07 AZITHROMYCIN 250 MG ORAL TABLET 437646 AZITHROMYCIN Inactive AZITHROMYCIN 250 MG ORAL TABLET 2 po qd x 1 day, then 1 po qd x 4 days 10/13 AZITHROMYCIN 250 MG ORAL TABLET 097420 AZITHROMYCIN Inactive AZITHROMYCIN 250 MG ORAL TABLET 2 po qd x 1 day, then 1 po qd x 4 days 07/12 AZITHROMYCIN 250 MG ORAL TABLET 001989 AZITHROMYCIN Inactive PREDNISONE 20 MG ORAL TABLET 2 tabs daily for 3 days, 1 tab daily for 3 days, 1/2 tab daily for 2 days PREDNISONE 20 MG ORAL TABLET 906442 PREDNISONE Inactive DOXYCYCLINE HYCLATE 100 MG ORAL CAPSULE 1 cap by mouth BID x10 days DOXYCYCLINE HYCLATE 100 MG ORAL CAPSULE 6107262 DOXYCYCLINE HYCLATE Inactive Advance Directives Directive Description [...] Panel - Chemistry sodium, serum 141 mmol/L 218-882 7192/01/24 potassium, serum 4.3 mmol/L 3.5-5.2 chloride, serum [...] % 11.0-15.0 platelet count 172 THOUSAND/UL 10*3/mm3 019-954 2395/04/12 mean platelet volume 8.6 fL 7.5-12.5 Lab Report: Prothrombin Time - Coagulation prothrombin time (patient) 27.8 SECS s 11.1-13.4 international normalized ratio (INR) 4.2 1.0-3.5 Lab Report: Prothrombin Time Hemochron - Coagulation prothrombin time (patient) 33.0 SECS s 18.9-24.9 Encounters Code Encounter Date Provider Facility CPT-62212 Level 3 Est. Patient 15:56:17 HAT MAKER Piotr Daley [facility] CPT-28118 Level 3 Est. Patient 10:34:54 HAT MAKER Piotr Daley [facility] CPT-32920 Level 3 Est. [facility] 17[facility]10:[facility] Est[facility] Patient 10:48:17 HAT MAKER Matthew Rangel MD [facility] CPT-70772 Level 4 Est. Patient 17:15:07 HAT MAKER Piotr Daley [facility] CPT-82898 Level 3 Est. Patient 12:46:13 HAT MAKER Piotr Daley [facility] CPT-22804 Level 3 Est. Patient 15:14:31 HAT MAKER Piotr Daley [facility] CPT-14324 Level 3 Est. Patient 09:20:13 HAT MAKER Piotr Daley [facility] CPT-56875 Level 3 Est. Patient 09:49:40 CDT Piotr Daley [facility] CPT-54204 Level 3 Est. Patient 16:28:11 CDT Piotr Daley [facility] CPT-61845 Level 3 Est. Patient 12:41:58 HAT MAKER Piotr Daley [facility] CPT-46194 Level 3 Est. Patient 09:21:24 CDT Piotr Daley [facility] CPT-04704 Level 3 Est. Patient 09:21:11 CDT Piotr Daley [facility] CPT-31682 Level 3 Est. Patient 11:16:29 HAT MAKER Piotr Daley [facility] CPT-82898 Level 3 Est. Patient 18:40:19 HAT MAKER Piotr Daley [facility] CPT-49979 Level 3 Est. Patient 19:30:50 CDT Piotr Daley [facility] CPT-32326 Level 3 Est. Patient 22:06:44 CDT Katrina Rinaldi MD PhD [facility]-56999 Level 3 Est. Patient 14:20:00 CDT Piotr Daley [facility] CPT-00963 Level 3 Est. Patient 14:15:22 HAT MAKER Piotr Daley [facility] CPT-69914 Level 3 Est. Patient 20:19:57 HAT MAKER Piotr Daley [facility] CPT-14317 Level 3 Est. Patient 16:44:32 CDT Piotr Daley [facility] CPT-03269 Level 3 Est. Patient 08:48:46 HAT MAKER Piotr Daley [facility] CPT-36706 Level 3 Est. Patient 21:01:21 CDT Piotr Daley [facility] Procedures Code Procedure Name Date Entry Date Standard Description CPT-G0439 Subsequent Annual Wellness Exam 10:34:52 [facility] CPT-36574 BMP - LAB USE ONLY 17:19:11 HAT MAKER CPT-65335 PT/INR - LAB USE ONLY 17:19:10 [facility] CPT-61307 Venipuncture Draw Fee 17:19:10 HAT MAKER CPT-42058 PT/INR - LAB USE ONLY 08:12:25 HAT MAKER CPT-28400 Venipuncture Draw Fee 08:12:24 HAT MAKER CPT-94030 Venipuncture Draw Fee 11:31:07 HAT MAKER CPT-09634 TPSA - LAB USE ONLY 11:31:07 HAT MAKER CPT-15658 PT/INR - LAB USE ONLY 11:31:07 [facility] CPT-G0439 Subsequent Annual Wellness Exam 09:59:29 HAT MAKER CPT-12378 Creatinine - LAB USE ONLY 14:37:55 HAT MAKER CPT-14682 PT/INR - LAB USE ONLY 14:37:55 HAT MAKER CPT-67519 Venipuncture Draw Fee 14:37:55 HAT MAKER CPT-62386 LS spine comp w obliques - XRAY USE ONLY 12:59:25 HAT MAKER CPT-22773 PT/INR - LAB USE ONLY 13:49:20 CDT CPT-47729 Venipuncture Draw Fee 13:49:19 CDT CPT-24189 PT/INR - LAB USE ONLY 15:48:49 CDT CPT-76541 Venipuncture Draw Fee 15:48:49 CDT CPT-00870 Venipuncture Draw Fee 11:31:59 CDT CPT-18362 PT/INR - LAB USE ONLY 11:31:59 CDT CPT-30656 Venipuncture Draw Fee 13:29:15 CDT CPT-86987 Thoracolumbar AP/Lat 15:19:19 HAT MAKER CPT-G0438 Initial Annual Wellness Exam 12:18:54 HAT MAKER CPT-12369 Knee 3V 09:57:38 CDT CPT-OV Office Visit 15:45:01 HAT MAKER CPT-33133 Abd compl w upright 17:10:25 CDT
--- OUTSIDE RECORDS SUMMARY | 2018-07-18 10:43 | XMS REPORT | Clinical Summary ---
Author Author Admin, E Organization [employer] Address Unknown Phone Unavailable Allergies, Adverse [...] Coronary atherosclerosis of unspecified type of vessel, [place] or graft Back pain, thoracic region, [...] po tid with ES Tylenol TRAMADOL HCL 83576189698 Active Piotr Daley DO Active WARFARIN SODIUM 5 MG TABS 1 tablet daily except for Saturday and Sat 1/2 tablet. WARFARIN SODIUM 00622552942 Active Hilary Ma MA Active PREDNISONE 20 MG TAB 2 tablets today, then 1 tablet days 2 through 4 PREDNISONE 95620433040 No Longer Active Piotr Daley DO Active AZITHROMYCIN 250 MG TABS 2 po qd x 1 day, then 1 po qd x 4 days AZITHROMYCIN 50524331738 No Longer Active Piotr Daley DO Active IBUPROFEN 800 MG TABS 1 tab every 8 hours as needed IBUPROFEN 41292616176 No Longer Active Piotr Daley DO Active LOMOTIL 2.5-0.025 MG TAB 1 to 2 four times a day as needed for diarrhea 10/13 DIPHENOXYLATE-ATROPINE 36419252879 No Longer Active Piotr Daley DO Active WARFARIN SODIUM 4 MG TABS 1 tab every evening WARFARIN SODIUM 72968682804 No Longer Active Piotr Daley DO Active PREDNISONE 20 MG TAB 1 tablet twice daily for 2 days, then 1 tablet once daily for 2 days PREDNISONE 60584000132 No Longer Active Piotr Daley DO Active PROMETHAZINE HCL 25 MG TABS 1 four times a day as needed for nausea/vomiting PROMETHAZINE HCL 66927456088 No Longer Active Piotr Daley DO Active TUSSIONEX PENNKINETIC ER 10-8 MG/5ML LQCR 5ml po q12hr PRN Cough HYDROCOD POLST-CHLORPHEN POLST 43691942514 No Longer Active Piotr Daley DO Active AZITHROMYCIN 250 MG TABS 2 po qd x 1 day, then 1 po qd x 4 days AZITHROMYCIN 98091289578 No Longer Active Piotr Daley DO Active AZITHROMYCIN 250 MG TABS 2 po qd x 1 day, then 1 po qd x 4 days AZITHROMYCIN 01125652167 No Longer Active Piotr Daley DO Active LISINOPRIL-HYDROCHLOROTHIAZIDE 10-12.5 MG TABS 1 tab by mouth daily LISINOPRIL-HYDROCHLOROTHIAZIDE 37503066910 Active Hilary Ma MA Active LISINOPRIL 10 MG TABS 1/2-1 tab po every other day LISINOPRIL 43175588957 No Longer Active Piotr Daley DO Active VENTOLIN HFA 108 (90 BASE) MCG/ACT AERS 2 puffs four times a day PRN cough ALBUTEROL SULFATE 41330997401 No Longer Active Piotr Daley DO Active NYSTATIN-TRIAMCINOLONE 591601-4.1 UNIT/GM-% CREA Apply to area BID NYSTATIN-TRIAMCINOLONE 33328523017 No Longer Active Alena Chavira QUALITY ASSURANCE QA LAB TECHNICIAN Active PHISOHEX 3 % LIQD Use Directed HEXACHLOROPHENE 40968863500 No Longer Active Sandra [place] Active AZITHROMYCIN 250 MG TABS 2 po qd x 1 day, then 1 po qd x 4 days AZITHROMYCIN 04173879476 No Longer Active Katrina Rinaldi MD PhD Active AZITHROMYCIN 250 MG TABS 2 po qd x 1 day, then 1 po qd x 4 days AZITHROMYCIN 37506918691 No Longer Active Piotr Daley DO Active AZITHROMYCIN 500 MG SOLR 1 po q day AZITHROMYCIN 78552608282 No Longer Active Piotr Daley DO Active NYSTATIN-TRIAMCINOLONE 453058-9.1 UNIT/GM-% CREA apply bid 08/19 NYSTATIN-TRIAMCINOLONE 48488148930 No Longer Active Piotr Daley DO Active IBUPROFEN 800 MG TABS 1 po q 8 hours prn pain sparinly IBUPROFEN 09443994558 No Longer Active Piotr Daley DO Active VITAMIN D3 5000 UNIT CAPS 1 po daily CHOLECALCIFEROL 91236357964 Active Piotr Daley DO Active IBUPROFEN 800 MG TABS 1 po q 8 hours prn pain sparinly IBUPROFEN 800 MG TABS 434493 IBUPROFEN Inactive NYSTATIN-TRIAMCINOLONE 454110-7.1 UNIT/GM-% CREA apply bid 08/19 NYSTATIN-TRIAMCINOLONE 244774-7.1 UNIT/GM-% CREA 8844826 NYSTATIN- TRIAMCINOLONE Inactive AZITHROMYCIN 500 MG SOLR 1 po q day AZITHROMYCIN 500 MG SOLR 65624962037 AZITHROMYCIN Inactive VENTOLIN HFA 108 (90 BASE) MCG/ACT AERS 2 puffs four times a day PRN cough VENTOLIN HFA 108 (90 BASE) MCG/ACT AERS ALBUTEROL SULFATE Inactive LISINOPRIL 10 MG TABS 1/2-1 tab po every other day LISINOPRIL 10 MG TABS 108079 LISINOPRIL Inactive TUSSIONEX PENNKINETIC ER 10-8 MG/5ML LQCR 5ml po q12hr PRN Cough TUSSIONEX PENNKINETIC ER 10-8 MG/5ML LQCR HYDROCOD POLST- CHLORPHEN POLST Inactive PROMETHAZINE HCL 25 MG TABS 1 four times a day as needed for nausea/vomiting PROMETHAZINE HCL 25 MG TABS 190952 PROMETHAZINE HCL Inactive PREDNISONE 20 MG TAB 1 tablet twice daily for 2 days, then 1 tablet once daily for 2 days PREDNISONE 20 MG TAB 851400 PREDNISONE Inactive WARFARIN SODIUM 4 MG TABS 1 tab every evening WARFARIN SODIUM 4 MG TABS 263191 WARFARIN SODIUM Inactive LOMOTIL 2.5-0.025 MG TAB 1 to 2 four times a day as needed for diarrhea 10/13 LOMOTIL 2.5-0.025 MG TAB 2477831 DIPHENOXYLATE-ATROPINE Inactive IBUPROFEN 800 MG TABS 1 tab every 8 hours as needed IBUPROFEN 800 MG TABS 374079 IBUPROFEN Inactive PREDNISONE 20 MG TAB 2 tablets today, then 1 tablet days 2 through 4 PREDNISONE 20 MG TAB 466607 PREDNISONE Inactive AZITHROMYCIN 250 MG TABS 2 po qd x 1 day, then 1 po qd x 4 days AZITHROMYCIN 250 MG TABS 6092407 AZITHROMYCIN Inactive AZITHROMYCIN 250 MG TABS 2 po qd x 1 day, then 1 po qd x 4 days AZITHROMYCIN 250 MG TABS 8785475 AZITHROMYCIN Inactive NYSTATIN-TRIAMCINOLONE 804765-2.1 UNIT/GM-% CREA Apply to area BID NYSTATIN-TRIAMCINOLONE 391244-4.1 UNIT/GM-% CREA 2732825 NYSTATIN-TRIAMCINOLONE Inactive AZITHROMYCIN 250 MG TABS 2 po qd x 1 day, then 1 po qd x 4 days AZITHROMYCIN 250 MG TABS 2157894 AZITHROMYCIN Inactive AZITHROMYCIN 250 MG TABS 2 po qd x 1 day, then 1 po qd x 4 days AZITHROMYCIN 250 MG TABS 8294928 AZITHROMYCIN Inactive AZITHROMYCIN 250 MG TABS 2 po qd x 1 day, then 1 po qd x 4 days AZITHROMYCIN 250 MG TABS 2636224 AZITHROMYCIN Inactive Advance Directives Directive Description Start [...] Panel - Chemistry sodium, serum 141 mmol/L 556-808 0363/06/28 carbon dioxide, venous blood 31.0 mmol/L 21.0-32.0 [...] mg/g mg/g{creat} 0-29 sodium, serum 140 mmol/L 618-621 7428/07/17 potassium, serum 4.2 mmol/L 3.5-5.2 chloride, serum [...] 5.0-8.5 Encounters Code Encounter Date Provider Facility CPT-12050 Level 3 Est. Patient 15:14:31 CURRICULUM CONSULTANT Piotr W Edi [facility] CPT-99081 Level 3 Est. Patient 09:20:13 CURRICULUM CONSULTANT Piotr Daley [facility] CPT-12311 Level 3 Est. Patient 09:49:40 CDT Piotr Daley [facility] CPT-79752 Level 3 Est. Patient 16:28:11 CDT Piotr Daley [facility] CPT-58279 Level 3 Est. Patient 12:41:58 CURRICULUM CONSULTANT Piotr Wilson Edi [facility] CPT-20306 Level 3 Est. Patient 09:21:24 CDT Piotr Daley [facility] CPT-11704 Level 3 Est. Patient 09:21:11 CDT Piotr Wilson Edi [facility] CPT-37687 Level 3 Est. Patient 11:16:29 CURRICULUM CONSULTANT Piotr Daley [facility] CPT-70411 Level 3 Est. Patient 18:40:19 CURRICULUM CONSULTANT Piotr Wilson Edi [facility] CPT-59320 Level 3 Est. Patient 19:30:50 CDT Piotr Wilson Edi [facility] CPT-44873 Level 3 Est. Patient 22:06:44 CDT Katrina Rinaldi MD [facility] CPT-78423 Level 3 Est. Patient 14:20:00 CDT Piotr Wilson Edi [facility] CPT-51151 Level 3 Est. Patient 14:15:22 CURRICULUM CONSULTANT Piotr Daley [facility] CPT-69738 Level 3 Est. Patient 20:19:57 CURRICULUM CONSULTANT Piotr Wilson Edi [facility] CPT-39815 Level 3 Est. Patient 16:44:32 CDT Piotr Daley [facility] CPT-37432 Level 3 Est. Patient 08:48:46 CURRICULUM CONSULTANT Piotr Daley [facility] CPT-66528 Level 3 Est. Patient 21:01:21 CDT Piotr Daley DO [facility] Procedures Code Procedure Name Date Entry Date Standard Description CPT-02401 Thoracolumbar AP/Lat 15:19:19 CURRICULUM CONSULTANT CPT-G0438 Initial Annual Wellness Exam 12:18:54 CURRICULUM CONSULTANT CPT-44121 Knee 3V 09:57:38 CDT CPT-OV Office Visit 15:45:01 CURRICULUM CONSULTANT CPT-29462 Abd compl w upright 17:10:25 CDT
--- OUTSIDE RECORDS SUMMARY | 2018-07-18 10:43 | XMS REPORT | Clinical Summary ---
Author Author Admin, [employer] Address Unknown Phone Unavailable Allergies, Adverse Reactions, [...] neoplasm of prostate V10.46 Active Alina Meyers [employer] Personal history of malignant neoplasm of prostate Coronary artery disease 414.00 Active Alina Meyers [employer] Coronary atherosclerosis of unspecified type of vessel, [place] or graft Back pain, thoracic region, left 724.1 Inactive Piotr Daley DO Pain in thoracic spine Thoracic back pain 724.5 Active Piotr Wilson Edi DO Backache, unspecified Back pain lumbar 724.2 Active Piotr Daley DO Lumbago Peripheral neuropathy, lower extremity, left 356.9 Active 02/19 Piotr W Edi DO Unspecified hereditary and idiopathic peripheral neuropathy Insect bite 919.4 Active Nella Harris [employer] Insect bite, nonvenomous, of other, multiple, and unspecified sites, without mention of infection Pruritus 698.9 Active Nella Harris [employer] Unspecified pruritic disorder FLANK PAIN, RIGHT [...] mouth BID x10 days 10/01 DOXYCYCLINE HYCLATE 91536391110 No Longer Active Nella Harris APRN Active WARFARIN SODIUM 5 MG TABS 1 tablet daily M-S, 1/2 tab on Heart WARFARIN SODIUM 64819714957 Active Anahy Loja Active PROAIR HFA 108 (90 BASE) MCG/ACT AERS 1-2 puffs four times a day as needed ALBUTEROL SULFATE 80848267444 Active Matthew Rangel MD Active PREDNISONE 20 MG TAB 2 tabs daily for 3 days, 1 tab daily for 3 days, 1/2 tab daily for 2 days PREDNISONE 06887974831 No Longer Active Matthew Rangel MD Active TRAMADOL HCL 50 MG TABS 1 po tid with ES Tylenol TRAMADOL HCL 32850434169 No Longer Active Matthew Rangel MD Active GABAPENTIN 300 MG CAPS 1 po q hs for nerve pain GABAPENTIN 44388898283 No Longer Active Matthew Rangel MD Active PREDNISONE 20 MG TAB 2 tablets today, then 1 tablet days 2 through 4 PREDNISONE 51487902249 No Longer Active Piotr Daley DO Active AZITHROMYCIN 250 MG TABS 2 po qd x 1 day, then 1 po qd x 4 days AZITHROMYCIN 36506388016 No Longer Active Piotr Daley DO Active IBUPROFEN 800 MG TABS 1 tab every 8 hours as needed IBUPROFEN 14626918375 No Longer Active Piotr Daley DO Active LOMOTIL 2.5-0.025 MG TAB 1 to 2 four times a day as needed for diarrhea 10/13 DIPHENOXYLATE-ATROPINE 38495817320 No Longer Active Piotr Daley DO Active WARFARIN SODIUM 4 MG TABS 1 tab every evening WARFARIN SODIUM 38821640311 No Longer Active Piotr Daley DO Active PREDNISONE 20 MG TAB 1 tablet twice daily for 2 days, then 1 tablet once daily for 2 days PREDNISONE 60115811356 No Longer Active Piotr Daley DO Active PROMETHAZINE HCL 25 MG TABS 1 four times a day as needed for nausea/vomiting PROMETHAZINE HCL 77675584037 No Longer Active Piotr Daley DO Active TUSSIONEX PENNKINETIC ER 10-8 MG/5ML LQCR 5ml po q12hr PRN Cough HYDROCOD POLST-CHLORPHEN POLST 74024616350 No Longer Active Piotr Daley DO Active AZITHROMYCIN 250 MG TABS 2 po qd x 1 day, then 1 po qd x 4 days AZITHROMYCIN 45851944941 No Longer Active Piotr Daley DO Active AZITHROMYCIN 250 MG TABS 2 po qd x 1 day, then 1 po qd x 4 days AZITHROMYCIN 97530728664 No Longer Active Piotr Daley DO Active LISINOPRIL-HYDROCHLOROTHIAZIDE 10-12.5 MG TABS 1 tab by mouth daily LISINOPRIL-HYDROCHLOROTHIAZIDE 68109814796 Active Catalina Freitas Active LISINOPRIL 10 MG TABS 1/2-1 tab po every other day LISINOPRIL 64538258554 No Longer Active Piotr W Edi DO Active VENTOLIN HFA 108 (90 BASE) MCG/ACT AERS 2 puffs four times a day PRN cough ALBUTEROL SULFATE 46754397051 No Longer Active Piotr Daley DO Active NYSTATIN-TRIAMCINOLONE 288914-2.1 UNIT/GM-% CREA Apply to area BID NYSTATIN-TRIAMCINOLONE 13515474018 No Longer Active Alena Oswaldum [employer]IC[employer] HUNTER Active PHISOHEX 3 % LIQD Use Directed HEXACHLOROPHENE 03313719894 No Longer Active Sandra Monterey Active AZITHROMYCIN 250 MG TABS 2 po qd x 1 day, then 1 po qd x 4 days AZITHROMYCIN 14610860274 No Longer Active Katrina Rinaldi MD PhD Active AZITHROMYCIN 250 MG TABS 2 po qd x 1 day, then 1 po qd x 4 days AZITHROMYCIN 65923274257 No Longer Active Piotr Daley DO Active AZITHROMYCIN 500 MG SOLR 1 po q day AZITHROMYCIN 55038975282 No Longer Active Piotr Daley DO Active NYSTATIN-TRIAMCINOLONE 899580-8.1 UNIT/GM-% CREA apply bid 08/19 NYSTATIN-TRIAMCINOLONE 80573721414 No Longer Active Piotr Daley DO Active IBUPROFEN 800 MG TABS 1 po q 8 hours prn pain sparinly IBUPROFEN 26209808880 No Longer Active Piotr Daley DO Active VITAMIN D3 5000 UNIT CAPS 1 po daily CHOLECALCIFEROL 67773797058 Active Piotr Daley DO Active IBUPROFEN 800 MG TABS 1 po q 8 hours prn pain sparinly IBUPROFEN 800 MG TABS 384430 IBUPROFEN Inactive NYSTATIN-TRIAMCINOLONE 202488-5.1 UNIT/GM-% CREA apply bid 08/19 NYSTATIN-TRIAMCINOLONE 526143-1.1 UNIT/GM-% CREA 1703112 NYSTATIN- TRIAMCINOLONE Inactive AZITHROMYCIN 500 MG SOLR 1 po q day AZITHROMYCIN 500 MG SOLR 53720621798 AZITHROMYCIN Inactive VENTOLIN HFA 108 (90 BASE) MCG/ACT AERS 2 puffs four times a day PRN cough VENTOLIN HFA 108 (90 BASE) MCG/ACT AERS ALBUTEROL SULFATE Inactive LISINOPRIL 10 MG TABS 1/2-1 tab po every other day LISINOPRIL 10 MG TABS 345277 LISINOPRIL Inactive TUSSIONEX PENNKINETIC ER 10-8 MG/5ML LQCR 5ml po q12hr PRN Cough TUSSIONEX PENNKINETIC ER 10-8 MG/5ML LQCR HYDROCOD POLST- CHLORPHEN POLST Inactive PROMETHAZINE HCL 25 MG TABS 1 four times a day as needed for nausea/vomiting PROMETHAZINE HCL 25 MG TABS 760811 PROMETHAZINE HCL Inactive PREDNISONE 20 MG TAB 1 tablet twice daily for 2 days, then 1 tablet once daily for 2 days PREDNISONE 20 MG TAB 706083 PREDNISONE Inactive WARFARIN SODIUM 4 MG TABS 1 tab every evening WARFARIN SODIUM 4 MG TABS 773469 WARFARIN SODIUM Inactive LOMOTIL 2.5-0.025 MG TAB 1 to 2 four times a day as needed for diarrhea 10/13 LOMOTIL 2.5-0.025 MG TAB 8362920 DIPHENOXYLATE-ATROPINE Inactive IBUPROFEN 800 MG TABS 1 tab every 8 hours as needed IBUPROFEN 800 MG TABS 237117 IBUPROFEN Inactive PREDNISONE 20 MG TAB 2 tablets today, then 1 tablet days 2 through 4 PREDNISONE 20 MG TAB 443971 PREDNISONE Inactive GABAPENTIN 300 MG CAPS 1 po q hs for nerve pain GABAPENTIN 300 MG CAPS 180008 GABAPENTIN Inactive TRAMADOL HCL 50 MG TABS 1 po tid with ES Tylenol TRAMADOL HCL 50 MG TABS 857967 TRAMADOL HCL Inactive AZITHROMYCIN 250 MG TABS 2 po qd x 1 day, then 1 po qd x 4 days AZITHROMYCIN 250 MG TABS 973022 AZITHROMYCIN Inactive AZITHROMYCIN 250 MG TABS 2 po qd x 1 day, then 1 po qd x 4 days AZITHROMYCIN 250 MG TABS 279156 AZITHROMYCIN Inactive NYSTATIN-TRIAMCINOLONE 475726-5.1 UNIT/GM-% CREA Apply to area BID NYSTATIN-TRIAMCINOLONE 876192-1.1 UNIT/GM-% CREA 3619916 NYSTATIN-TRIAMCINOLONE Inactive AZITHROMYCIN 250 MG TABS 2 po qd x 1 day, then 1 po qd x 4 days AZITHROMYCIN 250 MG TABS 139061 AZITHROMYCIN Inactive AZITHROMYCIN 250 MG TABS 2 po qd x 1 day, then 1 po qd x 4 days AZITHROMYCIN 250 MG TABS 724916 AZITHROMYCIN Inactive AZITHROMYCIN 250 MG TABS 2 po qd x 1 day, then 1 po qd x 4 days AZITHROMYCIN 250 MG TABS 228246 AZITHROMYCIN Inactive PREDNISONE 20 MG TAB 2 tabs daily for 3 days, 1 tab daily for 3 days, 1/2 tab daily for 2 days PREDNISONE 20 MG TAB 418221 PREDNISONE Inactive DOXYCYCLINE HYCLATE 100 MG CAP 1 cap by mouth BID x10 days 10/01 DOXYCYCLINE HYCLATE 100 MG CAP 5576608 DOXYCYCLINE HYCLATE Inactive Advance Directives Directive Description [...] Panel - Chemistry sodium, serum 141 mmol/L 476-565 8142/01/24 potassium, serum 4.3 mmol/L 3.5-5.2 chloride, serum [...] % 11.0-15.0 platelet count 172 THOUSAND/UL 10*3/mm3 712-764 8433/04/12 mean platelet volume 8.6 fL 7.5-12.5 Lab [...] 18.9-24.9 Encounters Code Encounter Date Provider Facility CPT-77030 Level 3 Est. Patient 17:10:19 CDJose Harris APRN [facility] CPT-11458 Level 3 Est. Patient 10:48:17 [employer] Matthew Rangel MD [facility] CPT-26850 Level 4 Est. Patient 17:15:07 [employer] Piotr W Edi [facility] CPT-03112 Level 3 Est. Patient 12:46:13 [employer] Piotr Daley [facility] CPT-56702 Level 3 Est. Patient 15:14:31 [employer] Piotr Daley [facility] CPT-57179 Level 3 Est. Patient 09:20:13 [employer] Piotr Daley [facility] CPT-87407 Level 3 Est. Patient 09:49:40 CDT Piotr Daley [facility] CPT-32563 Level 3 Est. Patient 16:28:11 CDT Piotr Daley [facility] CPT-05425 Level 3 Est. Patient 12:41:58 [employer] Piotr Daley [facility] CPT-79959 Level 3 Est. Patient 09:21:24 CDT Piotr Daley [facility] CPT-66193 Level 3 Est. Patient 09:21:11 CDT Piotr Daley [facility] CPT-84886 Level 3 Est. Patient 11:16:29 [employer] Piotr Daley [facility] CPT-61496 Level 3 Est. Patient 18:40:19 [employer] Piotr Daley [facility] CPT-88676 Level 3 Est. Patient 19:30:50 CDT Piotr Daley [facility] CPT-15320 Level 3 Est. Patient 22:06:44 CDT Katrina Rinaldi MD PhD [facility] CPT-91702 Level 3 Est. Patient 14:20:00 CDT Piotr Daley [facility] CPT-91871 Level 3 Est. Patient 14:15:22 [employer] Piotr Daley [facility] CPT-07989 Level 3 Est. Patient 20:19:57 [employer] Piotr Daley [facility] CPT-05942 Level 3 Est. Patient 16:44:32 CDT Piotr W Edi [facility] CPT-69340 Level 3 Est. Patient 08:48:46 [employer] Piotr Daley [facility] CPT-95907 Level 3 Est. Patient 21:01:21 CDT Piotr Daley [facility] Procedures Code Procedure Name Date Entry Date Standard Description CPT-64716 BMP - LAB USE ONLY 17:19:11 [employer] CPT-38713 PT/INR - LAB USE ONLY 17:19:10 [employer] CPT-72104 Venipuncture Draw Fee 17:19:10 [employer] CPT-71460 PT/INR - LAB USE ONLY 08:12:25 [employer] CPT-18373 Venipuncture Draw Fee 08:12:24 [employer] CPT-21989 Venipuncture Draw Fee 11:31:07 [employer] CPT-44944 TPSA - LAB USE ONLY 11:31:07 [employer] CPT-81343 PT/INR - LAB USE ONLY 11:31:07 [employer] CPT-G0439 [facility] Annual Wellness Exam 09:59:29 [employer] CPT-44200 Creatinine - LAB USE ONLY 14:37:55 [employer] CPT-84533 PT/INR - LAB USE ONLY 14:37:55 [employer] CPT-28950 Venipuncture Draw Fee 14:37:55 [employer] CPT-42906 LS spine comp w obliques - XRAY USE ONLY 12:59:25 [employer] CPT-97904 PT/INR - LAB USE ONLY 13:49:20 CDT CPT-36735 Venipuncture Draw Fee 13:49:19 CDT CPT-42867 PT/INR - LAB USE ONLY 15:48:49 CDT CPT-27041 Venipuncture Draw Fee 15:48:49 CDT CPT-91712 Venipuncture Draw Fee 11:31:59 CDT CPT-63470 PT/INR - LAB USE ONLY 11:31:59 CDT CPT-32575 Venipuncture Draw Fee 13:29:15 CDT CPT-90831 Thoracolumbar AP/Lat 15:19:19 [employer] CPT-G0438 Initial Annual Wellness Exam 12:18:54 [employer] CPT-24771 Knee 3V 09:57:38 CDT CPT-OV Office Visit 15:45:01 [employer] CPT-39439 Abd compl w upright 17:10:25 CDT
--- OUTSIDE RECORDS SUMMARY | 2018-07-18 10:44 | XMS REPORT | Clinical Summary ---
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 Personal history of malignant neoplasm of [...] LOO Knee pain, left ICD-719.46 Inactive Sirisha Cehn TRACTOR SWEEPER OPERATOR Actinic keratoses ICD-702.0 Inactive Sirisha Chen TRACTOR SWEEPER OPERATOR Back pain, thoracic region, left ICD-724.1 Inactive Piotr Daley DO Thoracic back pain ICD-724.5 Inactive Sirisha Chen TRACTOR SWEEPER OPERATOR Back pain lumbar ICD-724.2 Inactive Sirisha Chen TRACTOR SWEEPER OPERATOR Insect bite ICD-919.4 Inactive Sirisha Chen TRACTOR SWEEPER OPERATOR Pruritus ICD-698.9 Inactive Sirisha Chen TRACTOR SWEEPER OPERATOR 04/09 Bronchitis-Acute ICD-466.0 Inactive Sirisha Chen TRACTOR SWEEPER OPERATOR Dyspnea ICD-786.09 Inactive Sirisha Chen TRACTOR SWEEPER OPERATOR 05/09 Medication List Medication Instructions Start Date Stop Date Generic Name NDC Status Provider Patient Instruction WARFARIN SODIUM 4 MG ORAL TABLET 1 tablet by mouth daily except 2mg on Saturday and Saturday WARFARIN SODIUM 81169148635 Active Anahy Loja Active MELOXICAM 15 MG ORAL TABLET 1 po q day for pain with food MELOXICAM 74001835881 Active Piotr Daley DO Active PREDNISONE 10 MG ORAL TABLET 1 tablet by mouth daily PREDNISONE 85631621791 No Longer Active Emelyn Norris Active TESSALON PERLES 100 MG ORAL CAPSULE 1-2 tablet by mouth 3 times daily 04/16 BENZONATATE 69006593854 No Longer Active Emelyn Norris Active PREDNISONE 20 MG ORAL TABLET two tabs by mouth today, then one tab by mouth days two and three PREDNISONE 10995128047 No Longer Active Piotr Daley DO Active CYCLOBENZAPRINE HCL 10 MG ORAL TABLET 1 tablet by mouth three times daily as needed for muscle spasm/pain CYCLOBENZAPRINE HCL 51772540973 Active Sirisha Chen LPN Active ZITHROMAX 250 MG ORAL TABLET Take two (2 ) tablets day one, then one (1) tablet a day for four (4) more days AZITHROMYCIN 39285229179 No Longer Active Piotr Daley DO Active PROAIR HFA 108 (90 BASE) MCG/ACT INHALATION AEROSOL SOLUTION 1-2 puffs four times a day as needed ALBUTEROL SULFATE 52854344474 No Longer Active Emelyn Norris Active DOXYCYCLINE HYCLATE 100 MG ORAL CAPSULE 1 cap by mouth BID x10 days DOXYCYCLINE HYCLATE 12544169794 No Longer Active Nella Harris APRN Active PREDNISONE 20 MG ORAL TABLET 2 tabs daily for 3 days, 1 tab daily for 3 days, 1/2 tab daily for 2 days PREDNISONE 16113712208 No Longer Active Matthew Rangel MD Active TRAMADOL HCL 50 MG ORAL TABLET 1 po tid with ES Tylenol TRAMADOL HCL 61004497262 No Longer Active Matthew Rangel MD Active GABAPENTIN 300 MG ORAL CAPSULE 1 po q hs for nerve pain GABAPENTIN 72036511697 No Longer Active Matthew Rangel MD Active PREDNISONE 20 MG ORAL TABLET 2 tablets today, then 1 tablet days 2 through 4 PREDNISONE 51988898067 No Longer Active Piotr Daley DO Active AZITHROMYCIN 250 MG ORAL TABLET 2 po qd x 1 day, then 1 po qd x 4 days 07/12 AZITHROMYCIN 32326208735 No Longer Active Piotr Daley DO Active IBUPROFEN 800 MG ORAL TABLET 1 tab every 8 hours as needed 07/12 IBUPROFEN 79830213562 No Longer Active Piotr Daley DO Active LOMOTIL 2.5-0.025 MG ORAL TABLET 1 to 2 four times a day as needed for diarrhea DIPHENOXYLATE-ATROPINE 50258173404 No Longer Active Piotr Daley DO Active WARFARIN SODIUM 4 MG ORAL TABLET 1 tab every evening WARFARIN SODIUM 77934375412 No Longer Active Piotr Daley DO Active PREDNISONE 20 MG ORAL TABLET 1 tablet twice daily for 2 days, then 1 tablet once daily for 2 days PREDNISONE 38575445409 No Longer Active Piotr Daley DO Active PROMETHAZINE HCL 25 MG ORAL TABLET 1 four times a day as needed for nausea/ vomiting PROMETHAZINE HCL 93731459981 No Longer Active Piotr Daley DO Active TUSSIONEX PENNKINETIC ER 10-8 MG/5ML ORAL SUSPENSION EXTENDED RELEASE 5ml po q12hr PRN Cough HYDROCOD POLST-CHLORPHEN POLST 61276456968 No Longer Active Piotr Daley DO Active AZITHROMYCIN 250 MG ORAL TABLET 2 po qd x 1 day, then 1 po qd x 4 days 10/13 AZITHROMYCIN 32092873209 No Longer Active Piotr Daley DO Active AZITHROMYCIN 250 MG ORAL TABLET 2 po qd x 1 day, then 1 po qd x 4 days 05/07 AZITHROMYCIN 98808485967 No Longer Active Piotr Daley DO Active LISINOPRIL-HYDROCHLOROTHIAZIDE 10-12.5 MG ORAL TABLET 1 tab by mouth daily LISINOPRIL-HYDROCHLOROTHIAZIDE 02055427571 Active Piotr Daley DO Active LISINOPRIL 10 MG ORAL TABLET 1/2-1 tab po every other day LISINOPRIL 85626171997 No Longer Active Piotr Daley DO Active VENTOLIN HFA 108 (90 Base) MCG/ACT INHALATION AEROSOL SOLUTION 2 puffs four times a day PRN cough ALBUTEROL SULFATE 99845470516 No Longer Active Piotr Daley DO Active NYSTATIN-TRIAMCINOLONE 136562-2.1 UNIT/GM-% EXTERNAL CREAM Apply to area BID NYSTATIN-TRIAMCINOLONE 56965898534 No Longer Active Alena Chavira TRACTOR SWEEPER OPERATOR Active PHISOHEX 3 % LIQD Use Directed HEXACHLOROPHENE 78120025571 No Longer Active Sandra [place] Active AZITHROMYCIN 250 MG ORAL TABLET 2 po qd x 1 day, then 1 po qd x 4 days 10/21 AZITHROMYCIN 81614725919 No Longer Active Katrina Rinaldi MD PhD Active AZITHROMYCIN 250 MG ORAL TABLET 2 po qd x 1 day, then 1 po qd x 4 days 10/16 AZITHROMYCIN 84770155770 No Longer Active Piotr Daley DO Active AZITHROMYCIN 500 MG INTRAVENOUS SOLUTION RECONSTITUTED 1 po q day AZITHROMYCIN 56842652156 No Longer Active Piotr Daley DO Active NYSTATIN-TRIAMCINOLONE 605483-7.1 UNIT/GM-% EXTERNAL CREAM apply bid NYSTATIN-TRIAMCINOLONE 67945639069 No Longer Active Piotr Daley DO Active IBUPROFEN 800 MG ORAL TABLET 1 po q 8 hours prn pain sparinly IBUPROFEN 45251443402 No Longer Active Piotr Daley DO Active VITAMIN D3 5000 UNIT ORAL CAPSULE 1 po daily CHOLECALCIFEROL 37235683488 Active Piotr Daley DO Active IBUPROFEN 800 MG ORAL TABLET 1 po q 8 hours prn pain sparinly IBUPROFEN 800 MG ORAL TABLET 067540 IBUPROFEN Inactive NYSTATIN-TRIAMCINOLONE 952188-8.1 UNIT/GM-% EXTERNAL CREAM apply bid NYSTATIN-TRIAMCINOLONE 684531-7.1 UNIT/GM-% EXTERNAL CREAM 1735260 NYSTATIN-TRIAMCINOLONE Inactive AZITHROMYCIN 500 MG INTRAVENOUS SOLUTION RECONSTITUTED 1 po q day AZITHROMYCIN 500 MG INTRAVENOUS SOLUTION RECONSTITUTED 95885318009 AZITHROMYCIN Inactive VENTOLIN HFA 108 (90 Base) MCG/ACT INHALATION AEROSOL SOLUTION 2 puffs four times a day PRN cough VENTOLIN HFA 108 (90 Base) MCG/ ACT INHALATION AEROSOL SOLUTION ALBUTEROL SULFATE Inactive LISINOPRIL 10 MG ORAL TABLET 1/2-1 tab po every other day LISINOPRIL 10 MG ORAL TABLET 474500 LISINOPRIL Inactive TUSSIONEX PENNKINETIC ER 10-8 MG/5ML ORAL SUSPENSION EXTENDED RELEASE 5ml po q12hr PRN Cough TUSSIONEX PENNKINETIC ER 10-8 MG/5ML ORAL SUSPENSION EXTENDED RELEASE HYDROCOD POLST-CHLORPHEN POLST Inactive PROMETHAZINE HCL 25 MG ORAL TABLET 1 four times a day as needed for nausea/ vomiting PROMETHAZINE HCL 25 MG ORAL TABLET 339177 PROMETHAZINE HCL Inactive PREDNISONE 20 MG ORAL TABLET 1 tablet twice daily for 2 days, then 1 tablet once daily for 2 days PREDNISONE 20 MG ORAL TABLET 253247 PREDNISONE Inactive WARFARIN SODIUM 4 MG ORAL TABLET 1 tab every evening WARFARIN SODIUM 4 MG ORAL TABLET 852564 WARFARIN SODIUM Inactive LOMOTIL 2.5-0.025 MG ORAL TABLET 1 to 2 four times a day as needed for diarrhea LOMOTIL 2.5-0.025 MG ORAL TABLET 4559944 DIPHENOXYLATE-ATROPINE Inactive IBUPROFEN 800 MG ORAL TABLET 1 tab every 8 hours as needed 07/12 IBUPROFEN 800 MG ORAL TABLET 902956 IBUPROFEN Inactive PREDNISONE 20 MG ORAL TABLET 2 tablets today, then 1 tablet days 2 through 4 PREDNISONE 20 MG ORAL TABLET 917465 PREDNISONE Inactive GABAPENTIN 300 MG ORAL CAPSULE 1 po q hs for nerve pain GABAPENTIN 300 MG ORAL CAPSULE 762744 GABAPENTIN Inactive TRAMADOL HCL 50 MG ORAL TABLET 1 po tid with ES Tylenol TRAMADOL HCL 50 MG ORAL TABLET 084506 TRAMADOL HCL Inactive PROAIR HFA 108 (90 BASE) MCG/ACT INHALATION AEROSOL SOLUTION 1-2 puffs four times a day as needed PROAIR HFA 108 (90 BASE) MCG/ACT INHALATION AEROSOL SOLUTION ALBUTEROL SULFATE Inactive PREDNISONE 20 MG ORAL TABLET two tabs by mouth today, then one tab by mouth days two and three PREDNISONE 20 MG ORAL TABLET 220505 PREDNISONE Inactive TESSALON PERLES 100 MG ORAL CAPSULE 1-2 tablet by mouth 3 times daily 04/16 TESSALON PERLES 100 MG ORAL CAPSULE 357302 BENZONATATE Inactive PREDNISONE 10 MG ORAL TABLET 1 tablet by mouth daily PREDNISONE 10 MG ORAL TABLET 938556 PREDNISONE Inactive AZITHROMYCIN 250 MG ORAL TABLET 2 po qd x 1 day, then 1 po qd x 4 days 10/16 AZITHROMYCIN 250 MG ORAL TABLET 380522 AZITHROMYCIN Inactive AZITHROMYCIN 250 MG ORAL TABLET 2 po qd x 1 day, then 1 po qd x 4 days 10/21 AZITHROMYCIN 250 MG ORAL TABLET 622728 AZITHROMYCIN Inactive NYSTATIN-TRIAMCINOLONE 623686-2.1 UNIT/GM-% EXTERNAL CREAM Apply to area BID NYSTATIN-TRIAMCINOLONE 109325-1.1 UNIT/GM-% EXTERNAL CREAM 2903426 NYSTATIN-TRIAMCINOLONE Inactive AZITHROMYCIN 250 MG ORAL TABLET 2 po qd x 1 day, then 1 po qd x 4 days 05/07 AZITHROMYCIN 250 MG ORAL TABLET 947256 AZITHROMYCIN Inactive AZITHROMYCIN 250 MG ORAL TABLET 2 po qd x 1 day, then 1 po qd x 4 days 10/13 AZITHROMYCIN 250 MG ORAL TABLET 490727 AZITHROMYCIN Inactive AZITHROMYCIN 250 MG ORAL TABLET 2 po qd x 1 day, then 1 po qd x 4 days 07/12 AZITHROMYCIN 250 MG ORAL TABLET 382721 AZITHROMYCIN Inactive PREDNISONE 20 MG ORAL TABLET 2 tabs daily for 3 days, 1 tab daily for 3 days, 1/2 tab daily for 2 days PREDNISONE 20 MG ORAL TABLET 675353 PREDNISONE Inactive DOXYCYCLINE HYCLATE 100 MG ORAL CAPSULE 1 cap by mouth BID x10 days DOXYCYCLINE HYCLATE 100 MG ORAL CAPSULE 6769524 DOXYCYCLINE HYCLATE Inactive ZITHROMAX 250 MG ORAL TABLET Take two (2 ) tablets day one, then one (1) tablet a day for four (4) more days ZITHROMAX 250 MG ORAL TABLET 660730 AZITHROMYCIN Inactive Advance Directives Directive Description Start [...] % 11.0-15.0 platelet count 172 THOUSAND/UL 10*3/mm3 345-360 8434/04/12 mean platelet volume 8.6 fL 7.5-12.5 Lab Report: Prothrombin Time Hemochron - Coagulation prothrombin time (patient) 33.0 SECS s 18.9-24.9 Encounters Code Encounter Date Provider Facility CPT-98206 Level 3 Est. Patient 15:59:25 LINING SETTER Piotr Daley [facility] CPT-59089 Level 3 Est. Patient 12:33:59 LINING SETTER Piotr Daley [facility] CPT-98459 Level 3 Est. Patient 15:56:17 LINING SETTER Piotr Daley [facility] CPT-47142 Level 3 Est. Patient 10:34:54 LINING SETTER Piotr Daley [facility] CPT-11729 Level 3 Est. Patient 17:10:19 CDT Nella Harris APRN [facility] CPT-82320 Level 3 Est. Patient 10:48:17 LINING SETTER Matthew Rangel MD [facility] CPT-70842 Level 4 Est. Patient 17:15:07 LINING SETTER Piotr Daley [facility] CPT-42898 Level 3 Est. Patient 12:46:13 LINING SETTER Piotr Daley [facility] CPT-37499 Level 3 Est. Patient 15:14:31 LINING SETTER Piotr Daley [facility] CPT-22556 Level 3 Est. Patient 09:20:13 LINING SETTER Piotr Daley [facility] CPT-08890 Level 3 Est. Patient 09:49:40 CDT Piotr Daley [facility] CPT-34591 Level 3 Est. Patient 16:28:11 CDT Piotr Daley [facility] CPT-43727 Level 3 Est. Patient 12:41:58 LINING SETTER Piotr Daley [facility] CPT-48842 Level 3 Est. Patient 09:21:24 CDT Piotr Daley [facility] CPT-93440 Level 3 Est. Patient 09:21:11 CDT Piotr Daley [facility] CPT-21134 Level 3 Est. Patient 11:16:29 LINING SETTER Piotr Daley [facility] CPT-37624 Level 3 Est. Patient 18:40:19 LINING SETTER Piotr Daley [facility] CPT-83348 Level 3 Est. Patient 19:30:50 CDT Piotr Daley [facility] CPT-53859 Level 3 Est. Patient 22:06:44 CDT Katrina Rinaldi MD [facility] CPT-69664 Level 3 Est. Patient 14:20:00 CDT Piotr Daley [facility] CPT-76092 Level 3 Est. Patient 14:15:22 LINING SETTER Piotr Daley [facility] CPT-66694 Level 3 Est. Patient 20:19:57 LINING SETTER Piotr Daley [facility] CPT-67992 Level 3 Est. Patient 16:44:32 CDT Piotr Daley [facility] CPT-88150 Level 3 Est. Patient 08:48:46 LINING SETTER Piotr Daley [facility] CPT-51269 Level 3 Est. Patient 21:01:21 CDT Piotr Daley DO [facility] Procedures Code Procedure Name Date Entry Date Standard Description CPT-36374 Sacroiliac jt < 3V - XRAY USE ONLY 16:45:19 LINING SETTER 05/09 CPT-37545 LS spine comp w obliques - XRAY USE ONLY 14:52:26 LINING SETTER CPT-01515 Chest, 2 views 12:55:58 LINING SETTER CPT-G0439 Subsequent Annual Wellness Exam 10:34:52 LINING SETTER CPT-86749 BMP - LAB USE ONLY 17:19:11 LINING SETTER CPT-54646 PT/INR - LAB USE ONLY 17:19:10 LINING SETTER CPT-26847 Venipuncture Draw Fee 17:19:10 LINING SETTER CPT-08481 PT/INR - LAB USE ONLY 08:12:25 LINING SETTER CPT-70751 Venipuncture Draw Fee 08:12:24 LINING SETTER CPT-34800 Venipuncture Draw Fee 11:31:07 LINING SETTER CPT-71103 TPSA - LAB USE ONLY 11:31:07 LINING SETTER CPT-75815 PT/INR - LAB USE ONLY 11:31:07 LINING SETTER CPT-G0439 Subsequent Annual Wellness Exam 09:59:29 LINING SETTER CPT-95464 Creatinine - LAB USE ONLY 14:37:55 LINING SETTER CPT-58099 PT/INR - LAB USE ONLY 14:37:55 LINING SETTER CPT-30261 Venipuncture Draw Fee 14:37:55 LINING SETTER CPT-86460 LS spine comp w obliques - XRAY USE ONLY 12:59:25 LINING SETTER CPT-39931 PT/INR - LAB USE ONLY 13:49:20 CDT CPT-45919 Venipuncture Draw Fee 13:49:19 CDT CPT-29432 PT/INR - LAB USE ONLY 15:48:49 CDT CPT-04400 Venipuncture Draw Fee 15:48:49 CDT CPT-48469 Venipuncture Draw Fee 11:31:59 CDT CPT-40668 PT/INR - LAB USE ONLY 11:31:59 CDT CPT-19042 Venipuncture Draw Fee 13:29:15 CDT CPT-99159 Thoracolumbar AP/Lat 15:19:19 LINING SETTER CPT-G0438 Initial Annual Wellness Exam 12:18:54 LINING SETTER CPT-73676 Knee 3V 09:57:38 CDT CPT-OV Office Visit 15:45:01 LINING SETTER CPT-34388 Abd compl w upright 17:10:25 CDT
--- OUTSIDE RECORDS SUMMARY | 2018-07-18 10:45 | XMS REPORT | Clinical Summary ---
Author Author Admin, E Organization [employer] Address Unknown Phone Unavailable Allergies, Adverse Reactions, [...] Coronary atherosclerosis of unspecified type of vessel, [place] or graft Back pain, thoracic region, left [...] times a day as needed ALBUTEROL SULFATE 64937075321 Active Matthew Rangel MD Active PREDNISONE 20 MG TAB 2 tabs daily for 3 days, 1 tab daily for 3 days, 1/2 tab daily for 2 days PREDNISONE 14203888965 No Longer Active Matthew Rangel MD Active TRAMADOL HCL 50 MG TABS 1 po tid with ES Tylenol TRAMADOL HCL 53988628871 No Longer Active Matthew Rangel MD Active GABAPENTIN 300 MG CAPS 1 po q hs for nerve pain GABAPENTIN 17896212020 No Longer Active Matthew Rangel MD Active WARFARIN SODIUM 5 MG TABS 1 tablet daily WARFARIN SODIUM 31768237042 Active Piotr Daley DO Active PREDNISONE 20 MG TAB 2 tablets today, then 1 tablet days 2 through 4 PREDNISONE 28899926757 No Longer Active Piotr Daley DO Active AZITHROMYCIN 250 MG TABS 2 po qd x 1 day, then 1 po qd x 4 days AZITHROMYCIN 57900582589 No Longer Active Piotr Daley DO Active IBUPROFEN 800 MG TABS 1 tab every 8 hours as needed IBUPROFEN 21693203918 No Longer Active Piotr Daley DO Active LOMOTIL 2.5-0.025 MG TAB 1 to 2 four times a day as needed for diarrhea 10/13 DIPHENOXYLATE-ATROPINE 43072938566 No Longer Active Piotr Daley DO Active WARFARIN SODIUM 4 MG TABS 1 tab every evening WARFARIN SODIUM 15828591489 No Longer Active Piotr Daley DO Active PREDNISONE 20 MG TAB 1 tablet twice daily for 2 days, then 1 tablet once daily for 2 days PREDNISONE 95666831699 No Longer Active Piotr Daley DO Active PROMETHAZINE HCL 25 MG TABS 1 four times a day as needed for nausea/vomiting PROMETHAZINE HCL 81163624695 No Longer Active Piotr Daley DO Active TUSSIONEX PENNKINETIC ER 10-8 MG/5ML LQCR 5ml po q12hr PRN Cough HYDROCOD POLST-CHLORPHEN POLST 87639901804 No Longer Active Piotr Daley DO Active AZITHROMYCIN 250 MG TABS 2 po qd x 1 day, then 1 po qd x 4 days AZITHROMYCIN 57619796666 No Longer Active Piotr Daley DO Active AZITHROMYCIN 250 MG TABS 2 po qd x 1 day, then 1 po qd x 4 days AZITHROMYCIN 69055748190 No Longer Active Piotr Daley DO Active LISINOPRIL-HYDROCHLOROTHIAZIDE 10-12.5 MG TABS 1 tab by mouth daily LISINOPRIL-HYDROCHLOROTHIAZIDE 95993400619 Active Catalina Freitas Active LISINOPRIL 10 MG TABS 1/2-1 tab po every other day LISINOPRIL 70341347140 No Longer Active Piotr Daley DO Active VENTOLIN HFA 108 (90 BASE) MCG/ACT AERS 2 puffs four times a day PRN cough ALBUTEROL SULFATE 84205582244 No Longer Active Piotr Daley DO Active NYSTATIN-TRIAMCINOLONE 469807-8.1 UNIT/GM-% CREA Apply to area BID NYSTATIN-TRIAMCINOLONE 89436802334 No Longer Active Alena Chavira CIGAR HEAD HOLER Active PHISOHEX 3 % LIQD Use Directed HEXACHLOROPHENE 61063605560 No Longer Active Sandra Dentarger Active AZITHROMYCIN 250 MG TABS 2 po qd x 1 day, then 1 po qd x 4 days AZITHROMYCIN 78997892567 No Longer Active Katrina Rinaldi MD PhD Active AZITHROMYCIN 250 MG TABS 2 po qd x 1 day, then 1 po qd x 4 days AZITHROMYCIN 51255961650 No Longer Active Piotr Daley DO Active AZITHROMYCIN 500 MG SOLR 1 po q day AZITHROMYCIN 30678664957 No Longer Active Piotr Daley DO Active NYSTATIN-TRIAMCINOLONE 398494-8.1 UNIT/GM-% CREA apply bid 08/19 NYSTATIN-TRIAMCINOLONE 58092732195 No Longer Active Piotr Daley DO Active IBUPROFEN 800 MG TABS 1 po q 8 hours prn pain sparinly IBUPROFEN 58665373300 No Longer Active Piotr Daley DO Active VITAMIN D3 5000 UNIT CAPS 1 po daily CHOLECALCIFEROL 23958468146 Active Piotr Daley DO Active IBUPROFEN 800 MG TABS 1 po q 8 hours prn pain sparinly IBUPROFEN 800 MG TABS 771437 IBUPROFEN Inactive NYSTATIN-TRIAMCINOLONE 321509-9.1 UNIT/GM-% CREA apply bid 08/19 NYSTATIN-TRIAMCINOLONE 737806-3.1 UNIT/GM-% CREA 8165328 NYSTATIN- TRIAMCINOLONE Inactive AZITHROMYCIN 500 MG SOLR 1 po q day AZITHROMYCIN 500 MG SOLR 06056623326 AZITHROMYCIN Inactive VENTOLIN HFA 108 (90 BASE) MCG/ACT AERS 2 puffs four times a day PRN cough VENTOLIN HFA 108 (90 BASE) MCG/ACT AERS ALBUTEROL SULFATE Inactive LISINOPRIL 10 MG TABS 1/2-1 tab po every other day LISINOPRIL 10 MG TABS 034120 LISINOPRIL Inactive TUSSIONEX PENNKINETIC ER 10-8 MG/5ML LQCR 5ml po q12hr PRN Cough TUSSIONEX PENNKINETIC ER 10-8 MG/5ML LQCR HYDROCOD POLST- CHLORPHEN POLST Inactive PROMETHAZINE HCL 25 MG TABS 1 four times a day as needed for nausea/vomiting PROMETHAZINE HCL 25 MG TABS 628420 PROMETHAZINE HCL Inactive PREDNISONE 20 MG TAB 1 tablet twice daily for 2 days, then 1 tablet once daily for 2 days PREDNISONE 20 MG TAB 576522 PREDNISONE Inactive WARFARIN SODIUM 4 MG TABS 1 tab every evening WARFARIN SODIUM 4 MG TABS 613859 WARFARIN SODIUM Inactive LOMOTIL 2.5-0.025 MG TAB 1 to 2 four times a day as needed for diarrhea 10/13 LOMOTIL 2.5-0.025 MG TAB 8775249 DIPHENOXYLATE-ATROPINE Inactive IBUPROFEN 800 MG TABS 1 tab every 8 hours as needed IBUPROFEN 800 MG TABS 265052 IBUPROFEN Inactive PREDNISONE 20 MG TAB 2 tablets today, then 1 tablet days 2 through 4 PREDNISONE 20 MG TAB 316173 PREDNISONE Inactive GABAPENTIN 300 MG CAPS 1 po q hs for nerve pain GABAPENTIN 300 MG CAPS 501954 GABAPENTIN Inactive TRAMADOL HCL 50 MG TABS 1 po tid with ES Tylenol TRAMADOL HCL 50 MG TABS 206270 TRAMADOL HCL Inactive AZITHROMYCIN 250 MG TABS 2 po qd x 1 day, then 1 po qd x 4 days AZITHROMYCIN 250 MG TABS 8925991 AZITHROMYCIN Inactive AZITHROMYCIN 250 MG TABS 2 po qd x 1 day, then 1 po qd x 4 days AZITHROMYCIN 250 MG TABS 4312348 AZITHROMYCIN Inactive NYSTATIN-TRIAMCINOLONE 862962-8.1 UNIT/GM-% CREA Apply to area BID NYSTATIN-TRIAMCINOLONE 514095-1.1 UNIT/GM-% CREA 4221604 NYSTATIN-TRIAMCINOLONE Inactive AZITHROMYCIN 250 MG TABS 2 po qd x 1 day, then 1 po qd x 4 days AZITHROMYCIN 250 MG TABS 2600707 AZITHROMYCIN Inactive AZITHROMYCIN 250 MG TABS 2 po qd x 1 day, then 1 po qd x 4 days AZITHROMYCIN 250 MG TABS 8433237 AZITHROMYCIN Inactive AZITHROMYCIN 250 MG TABS 2 po qd x 1 day, then 1 po qd x 4 days AZITHROMYCIN 250 MG TABS 5067132 AZITHROMYCIN Inactive PREDNISONE 20 MG TAB 2 tabs daily for 3 days, 1 tab daily for 3 days, 1/2 tab daily for 2 days PREDNISONE 20 MG TAB 140031 PREDNISONE Inactive Advance Directives Directive Description Start [...] Panel - Chemistry sodium, serum 141 mmol/L 250-667 1653/01/24 potassium, serum 4.3 mmol/L 3.5-5.2 chloride, serum [...] % 11.0-15.0 platelet count 172 THOUSAND/UL 10*3/mm3 725-410 2159/04/12 mean platelet volume 8.6 fL 7.5-12.5 Lab Report: Comp. Metabolic Panel - Chemistry sodium, serum 141 mmol/L 697-211 4843/06/28 carbon dioxide, venous blood 31.0 mmol/L 21.0-32.0 [...] 1.0-3.5 Encounters Code Encounter Date Provider Facility CPT-00259 Level 3 Est. Patient 10:48:17 CIRCULAR HEAD SAW OPERATOR Matthew Rangel MD [facility] CPT-28597 Level 4 Est. Patient 17:15:07 CIRCULAR HEAD SAW OPERATOR Piotr Daley [facility] CPT-30976 Level 3 Est. Patient 12:46:13 CIRCULAR HEAD SAW OPERATOR Piotr Daley [facility] CPT-42344 Level 3 Est. Patient 15:14:31 CIRCULAR HEAD SAW OPERATOR Piotr Daley [facility] CPT-70463 Level 3 Est. Patient 09:20:13 CIRCULAR HEAD SAW OPERATOR Piotr Daley [facility] CPT-90821 Level 3 Est. Patient 09:49:40 CDT Piotr Wilson [facility] CPT-52024 Level 3 Est. Patient 16:28:11 CDT Piotr Daley [facility] CPT-23223 Level 3 Est. Patient 12:41:58 CIRCULAR HEAD SAW OPERATOR Piotr Daley [facility] CPT-49375 Level 3 Est. Patient 09:21:24 CDT Piotr Daley [facility] CPT-74330 Level 3 Est. Patient 09:21:11 CDT Piotr Daley [facility] CPT-00059 Level 3 Est. Patient 11:16:29 CIRCULAR HEAD SAW OPERATOR Piotr Daley [facility] CPT-10416 Level 3 Est. Patient 18:40:19 CIRCULAR HEAD SAW OPERATOR Piotr Daley [facility] CPT-29270 Level 3 Est. Patient 19:30:50 CDT Piotr Daley [facility] CPT-01472 Level 3 Est. Patient 22:06:44 CDT Katrina Rinaldi MD [facility] CPT-65426 Level 3 Est. Patient 14:20:00 CDT Piotr Daley [facility] CPT-52887 Level 3 Est. Patient 14:15:22 CIRCULAR HEAD SAW OPERATOR Piotr Daley [facility] CPT-09771 Level 3 Est. Patient 20:19:57 CIRCULAR HEAD SAW OPERATOR Piotr Daley [facility] CPT-14692 Level 3 Est. Patient 16:44:32 CDT Piotr Daley [facility] CPT-84242 Level 3 Est. Patient 08:48:46 CIRCULAR HEAD SAW OPERATOR Piotr Daley [facility] CPT-39586 Level 3 Est. Patient 21:01:21 CDT Piotr Daley [facility] Procedures Code Procedure Name Date Entry Date Standard Description CPT-21724 BMP - LAB USE ONLY 17:19:11 CIRCULAR HEAD SAW OPERATOR CPT-16070 PT/INR - LAB USE ONLY 17:19:10 CIRCULAR HEAD SAW OPERATOR CPT-85610 Venipuncture Draw Fee 17:19:10 CIRCULAR HEAD SAW OPERATOR CPT-13330 PT/INR - LAB USE ONLY 08:12:25 CIRCULAR HEAD SAW OPERATOR CPT-71172 Venipuncture Draw Fee 08:12:24 CIRCULAR HEAD SAW OPERATOR CPT-61009 Venipuncture Draw Fee 11:31:07 CIRCULAR HEAD SAW OPERATOR CPT-73486 TPSA - LAB USE ONLY 11:31:07 CIRCULAR HEAD SAW OPERATOR CPT-16745 PT/INR - LAB USE ONLY 11:31:07 CIRCULAR HEAD SAW OPERATOR CPT-G0439 [facility] Annual Wellness Exam 09:59:29 CIRCULAR HEAD SAW OPERATOR CPT-44938 Creatinine - LAB USE ONLY 14:37:55 CIRCULAR HEAD SAW OPERATOR CPT-51865 PT/INR - LAB USE ONLY 14:37:55 CIRCULAR HEAD SAW OPERATOR CPT-35946 Venipuncture Draw Fee 14:37:55 CIRCULAR HEAD SAW OPERATOR CPT-83252 LS spine comp w obliques - XRAY USE ONLY 12:59:25 CIRCULAR HEAD SAW OPERATOR CPT-93726 PT/INR - LAB USE ONLY 13:49:20 CDT CPT-99927 Venipuncture Draw Fee 13:49:19 CDT CPT-32015 PT/INR - LAB USE ONLY 15:48:49 CDT CPT-82690 Venipuncture Draw Fee 15:48:49 CDT CPT-18345 Venipuncture Draw Fee 11:31:59 CDT CPT-12709 PT/INR - LAB USE ONLY 11:31:59 CDT CPT-00613 Venipuncture Draw Fee 13:29:15 CDT CPT-40975 Thoracolumbar AP/Lat 15:19:19 CIRCULAR HEAD SAW OPERATOR CPT-G0438 Initial Annual Wellness Exam 12:18:54 CIRCULAR HEAD SAW OPERATOR CPT-21251 Knee 3V 09:57:38 CDT CPT-OV Office Visit 15:45:01 CIRCULAR HEAD SAW OPERATOR CPT-67244 Abd compl w upright 17:10:25 CDT
--- OUTSIDE RECORDS SUMMARY | 2018-07-18 10:46 | XMS REPORT | Clinical Summary ---
Author Author Admin, Isidra Organization [employer] Address Unknown Phone Unavailable Allergies, Adverse Reactions, [...] health care facility Actinic keratoses 702.0 Active Pitor Katie Edi DO Actinic keratosis Personal history of malignant neoplasm of prostate V10.46 Active Alina Meyers APRN Personal history of malignant neoplasm of prostate Coronary artery disease 414.00 Active Alina Meyers APRN Coronary atherosclerosis of unspecified type of vessel, [place] or graft Back pain, thoracic region, left [...] po q hs for nerve pain GABAPENTIN 43293044298 Active Piort Daley DO Active WARFARIN SODIUM 5 MG TABS 1 tablet daily WARFARIN SODIUM 67402441539 Active Piotr Daley DO Active TRAMADOL HCL 50 MG TABS 1 po tid with ES Tylenol TRAMADOL HCL 23718126054 Active Piotr Daley DO Active PREDNISONE 20 MG TAB 2 tablets today, then 1 tablet days 2 through 4 PREDNISONE 61439582165 No Longer Active Piotr Daley DO Active AZITHROMYCIN 250 MG TABS 2 po qd x 1 day, then 1 po qd x 4 days AZITHROMYCIN 86333617401 No Longer Active Piotr Daley DO Active IBUPROFEN 800 MG TABS 1 tab every 8 hours as needed IBUPROFEN 46535640209 No Longer Active Piotr Daley DO Active LOMOTIL 2.5-0.025 MG TAB 1 to 2 four times a day as needed for diarrhea 10/13 DIPHENOXYLATE-ATROPINE 77961799327 No Longer Active Piotr Daley DO Active WARFARIN SODIUM 4 MG TABS 1 tab every evening WARFARIN SODIUM 38157804292 No Longer Active Piotr Daley DO Active PREDNISONE 20 MG TAB 1 tablet twice daily for 2 days, then 1 tablet once daily for 2 days PREDNISONE 34796362359 No Longer Active Piotr Daley DO Active PROMETHAZINE HCL 25 MG TABS 1 four times a day as needed for nausea/vomiting PROMETHAZINE HCL 15843966278 No Longer Active Piotr Daley DO Active TUSSIONEX PENNKINETIC ER 10-8 MG/5ML LQCR 5ml po q12hr PRN Cough HYDROCOD POLST-CHLORPHEN POLST 05225044027 No Longer Active Piotr Daley DO Active AZITHROMYCIN 250 MG TABS 2 po qd x 1 day, then 1 po qd x 4 days AZITHROMYCIN 15012661553 No Longer Active Piotr Daley DO Active AZITHROMYCIN 250 MG TABS 2 po qd x 1 day, then 1 po qd x 4 days AZITHROMYCIN 46449088421 No Longer Active Piotr Daley DO Active LISINOPRIL-HYDROCHLOROTHIAZIDE 10-12.5 MG TABS 1 tab by mouth daily LISINOPRIL-HYDROCHLOROTHIAZIDE 35535112127 Active Simi Meyers Active LISINOPRIL 10 MG TABS 1/2-1 tab po every other day LISINOPRIL 58004296586 No Longer Active Piotr Daley DO Active VENTOLIN HFA 108 (90 BASE) MCG/ACT AERS 2 puffs four times a day PRN cough ALBUTEROL SULFATE 68555733116 No Longer Active Piotr Daley DO Active NYSTATIN-TRIAMCINOLONE 639505-5.1 UNIT/GM-% CREA Apply to area BID NYSTATIN-TRIAMCINOLONE 53546339168 No Longer Active Alena Chavira GRAY TENDER Active PHISOHEX 3 % LIQD Use Directed HEXACHLOROPHENE 28336150515 No Longer Active Sandra Belton Active AZITHROMYCIN 250 MG TABS 2 po qd x 1 day, then 1 po qd x 4 days AZITHROMYCIN 60989500031 No Longer Active Katrina Rinaldi MD PhD Active AZITHROMYCIN 250 MG TABS 2 po qd x 1 day, then 1 po qd x 4 days AZITHROMYCIN 68392866449 No Longer Active Piotr Daley DO Active AZITHROMYCIN 500 MG SOLR 1 po q day AZITHROMYCIN 65835525952 No Longer Active Piotr Daley DO Active NYSTATIN-TRIAMCINOLONE 379591-7.1 UNIT/GM-% CREA apply bid 08/19 NYSTATIN-TRIAMCINOLONE 19643616550 No Longer Active Piotr Daley DO Active IBUPROFEN 800 MG TABS 1 po q 8 hours prn pain sparinly IBUPROFEN 73864628720 No Longer Active Piotr Daley DO Active VITAMIN D3 5000 UNIT CAPS 1 po daily CHOLECALCIFEROL 94601221172 Active Piotr Daley DO Active IBUPROFEN 800 MG TABS 1 po q 8 hours prn pain sparinly IBUPROFEN 800 MG TABS 811880 IBUPROFEN Inactive NYSTATIN-TRIAMCINOLONE 148969-7.1 UNIT/GM-% CREA apply bid 08/19 NYSTATIN-TRIAMCINOLONE 844971-1.1 UNIT/GM-% CREA 5459954 NYSTATIN- TRIAMCINOLONE Inactive AZITHROMYCIN 500 MG SOLR 1 po q day AZITHROMYCIN 500 MG SOLR 99499710815 AZITHROMYCIN Inactive VENTOLIN HFA 108 (90 BASE) MCG/ACT AERS 2 puffs four times a day PRN cough VENTOLIN HFA 108 (90 BASE) MCG/ACT AERS ALBUTEROL SULFATE Inactive LISINOPRIL 10 MG TABS 1/2-1 tab po every other day LISINOPRIL 10 MG TABS 538135 LISINOPRIL Inactive TUSSIONEX PENNKINETIC ER 10-8 MG/5ML LQCR 5ml po q12hr PRN Cough TUSSIONEX PENNKINETIC ER 10-8 MG/5ML LQCR HYDROCOD POLST- CHLORPHEN POLST Inactive PROMETHAZINE HCL 25 MG TABS 1 four times a day as needed for nausea/vomiting PROMETHAZINE HCL 25 MG TABS 341180 PROMETHAZINE HCL Inactive PREDNISONE 20 MG TAB 1 tablet twice daily for 2 days, then 1 tablet once daily for 2 days PREDNISONE 20 MG TAB 952287 PREDNISONE Inactive WARFARIN SODIUM 4 MG TABS 1 tab every evening WARFARIN SODIUM 4 MG TABS 504873 WARFARIN SODIUM Inactive LOMOTIL 2.5-0.025 MG TAB 1 to 2 four times a day as needed for diarrhea 10/13 LOMOTIL 2.5-0.025 MG TAB 9797539 DIPHENOXYLATE-ATROPINE Inactive IBUPROFEN 800 MG TABS 1 tab every 8 hours as needed IBUPROFEN 800 MG TABS 807364 IBUPROFEN Inactive PREDNISONE 20 MG TAB 2 tablets today, then 1 tablet days 2 through 4 PREDNISONE 20 MG TAB 238104 PREDNISONE Inactive AZITHROMYCIN 250 MG TABS 2 po qd x 1 day, then 1 po qd x 4 days AZITHROMYCIN 250 MG TABS 8348712 AZITHROMYCIN Inactive AZITHROMYCIN 250 MG TABS 2 po qd x 1 day, then 1 po qd x 4 days AZITHROMYCIN 250 MG TABS 4158262 AZITHROMYCIN Inactive NYSTATIN-TRIAMCINOLONE 614866-7.1 UNIT/GM-% CREA Apply to area BID NYSTATIN-TRIAMCINOLONE 065625-9.1 UNIT/GM-% CREA 3656710 NYSTATIN-TRIAMCINOLONE Inactive AZITHROMYCIN 250 MG TABS 2 po qd x 1 day, then 1 po qd x 4 days AZITHROMYCIN 250 MG TABS 1955953 AZITHROMYCIN Inactive AZITHROMYCIN 250 MG TABS 2 po qd x 1 day, then 1 po qd x 4 days AZITHROMYCIN 250 MG TABS 7031321 AZITHROMYCIN Inactive AZITHROMYCIN 250 MG TABS 2 po qd x 1 day, then 1 po qd x 4 days AZITHROMYCIN 250 MG TABS 6289498 AZITHROMYCIN Inactive Advance Directives Directive Description Start [...] Panel - Chemistry sodium, serum 141 mmol/L 202-068 8442/01/24 potassium, serum 4.3 mmol/L 3.5-5.2 chloride, serum 103 mmol/L 98-107 carbon dioxide, venous blood 30.7 mmol/L 21.0-32.0 blood glucose 90 mg/dL 65-110 calcium, serum 8.5 mg/dL 8.5-10.1 urea nitrogen, blood 16 mg/dL 7-18 creatinine, serum 1.09 mg/dL 0.55-1.30 Lab Report: Comp. Metabolic Panel - Chemistry sodium, serum 141 mmol/L 827-362 7807/06/28 carbon dioxide, venous blood 31.0 mmol/L 21.0-32.0 [...] 1.0-3.5 Encounters Code Encounter Date Provider Facility CPT-72718 Level 4 Est. Patient 17:15:07 INSPECTOR AND CLERK Piotr Daley [facility] CPT-32807 Level 3 Est. Patient 12:46:13 INSPECTOR AND CLERK Piotr Daley [facility] CPT-44153 Level 3 Est. Patient 15:14:31 INSPECTOR AND CLERK Piotr Daley [facility] CPT-30219 Level 3 Est. Patient 09:20:13 INSPECTOR AND CLERK Piotr Daley [facility] CPT-93264 Level 3 Est. Patient 09:49:40 CDT Piotr Wilson [facility] CPT-64074 Level 3 Est. Patient 16:28:11 CDT Piotr Daley [facility] CPT-53711 Level 3 Est. Patient 12:41:58 INSPECTOR AND CLERK Piotr Daley [facility] CPT-38225 Level 3 Est. Patient 09:21:24 CDT Piotr Wilson [facility] CPT-03717 Level 3 Est. Patient 09:21:[address] [facility] CPT-92745 Level 3 Est. Patient 11:16:29 INSPECTOR AND CLERK Piotr Daley [facility] CPT-23972 Level 3 Est. Patient 18:40:19 INSPECTOR AND CLERK Piotr Daley [facility] CPT-14812 Level 3 Est. Patient 19:30:50 CDT Piotr Daley [facility] CPT-83120 Level 3 Est. Patient 22:06:44 CDT Katrina Rinaldi MD [facility] CPT-70139 Level 3 Est. Patient 14:20:00 CDT Piotr Daley [facility] CPT-58276 Level 3 Est. Patient 14:15:22 INSPECTOR AND CLERK Piotr Daley [facility] CPT-41866 Level 3 Est. Patient 20:19:57 INSPECTOR AND CLERK Piotr Daley [facility] CPT-49029 Level 3 Est. Patient 16:44:32 CDT Piotr Daley [facility] CPT-34709 Level 3 Est. Patient 08:48:46 INSPECTOR AND CLERK Piotr Daley [facility] CPT-73455 Level 3 Est. Patient 21:01:21 CDT Piotr Daley [facility] Procedures Code Procedure Name Date Entry Date Standard Description CPT-00542 BMP - LAB USE ONLY 17:19:11 INSPECTOR AND CLERK CPT-44687 PT/INR - LAB USE ONLY 17:19:10 INSPECTOR AND CLERK CPT-26040 Venipuncture Draw Fee 17:19:10 INSPECTOR AND CLERK CPT-85876 PT/INR - LAB USE ONLY 08:12:25 INSPECTOR AND CLERK CPT-87612 Venipuncture Draw Fee 08:12:24 INSPECTOR AND CLERK CPT-56820 Venipuncture Draw Fee 11:31:07 INSPECTOR AND CLERK CPT-53287 TPSA - LAB USE ONLY 11:31:07 INSPECTOR AND CLERK CPT-08243 PT/INR - LAB USE ONLY 11:31:07 INSPECTOR AND CLERK CPT-G0439 Subsequent Annual Wellness Exam 09:59:29 INSPECTOR AND CLERK CPT-47389 Creatinine - LAB USE ONLY 14:37:55 INSPECTOR AND CLERK CPT-92459 PT/INR - LAB USE ONLY 14:37:55 INSPECTOR AND CLERK CPT-82468 Venipuncture Draw Fee 14:37:55 INSPECTOR AND CLERK CPT-93014 LS spine comp w obliques - XRAY USE ONLY 12:59:25 INSPECTOR AND CLERK CPT-89787 PT/INR - LAB USE ONLY 13:49:20 CDT CPT-75786 Venipuncture Draw Fee 13:49:19 CDT CPT-05857 PT/INR - LAB USE ONLY 15:48:49 CDT CPT-41333 Venipuncture Draw Fee 15:48:49 CDT CPT-01752 Venipuncture Draw Fee 11:31:59 CDT CPT-90420 PT/INR - LAB USE ONLY 11:31:59 CDT CPT-40850 Venipuncture Draw Fee 13:29:15 CDT CPT-57286 Thoracolumbar AP/Lat 15:19:19 INSPECTOR AND CLERK CPT-G0438 Initial Annual Wellness Exam 12:18:54 INSPECTOR AND CLERK CPT-27578 Knee 3V 09:57:38 CDT CPT-OV Office Visit 15:45:01 INSPECTOR AND CLERK CPT-60931 Abd compl w upright 17:10:25 CDT
--- OUTSIDE RECORDS SUMMARY | 2018-07-18 10:47 | XMS REPORT | Clinical Summary ---
Author Author Admin, [employer] Address Unknown Phone Unavailable Allergies, Adverse Reactions, [...] Coronary atherosclerosis of unspecified type of vessel, [place] or graft Back pain, thoracic region, left [...] THROMBOPHLEBITIS, LEG, 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 Inactive Sirisha Chen [employer] SAL[employer] REPRESENTATIVE DEEP VENOUS THROMBOPHLEBITIS, LEG, 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 Inactive Sirisha Chen [employer] SALES REPRESENTATIVE Seborrheic keratosis ICD-702.19 Inactive Sirisha Chen [employer] SALES REPRESENTATIVE Bronchitis-Acute ICD-466.0 Inactive Piotr Daley DO Leg pain, right ICD-729.5 Inactive Sirisha Chen [employer] SAL[employer] REPRESENTATIVE Right leg pain ICD-729.5 Inactive Sirisha Chen [employer] SALES REPRESENTATIVE Bronchitis-Acute ICD-466.0 Inactive Sirisha Chen [employer] SALES REPRESENTATIVE Knee pain, left ICD-719.46 Inactive Sirisha Chen [employer] SALES REPRESENTATIVE Actinic keratoses ICD-702.0 Inactive Sirisha Chen [employer] SALES REPRESENTATIVE Back pain, thoracic region, left ICD-724.1 Inactive Piotr Daley DO Thoracic back pain ICD-724.5 Inactive Sirisha Chen [employer] SALES REPRESENTATIVE Back pain lumbar ICD-724.2 Inactive Sirisha Chen [employer] SALES REPRESENTATIVE Insect bite ICD-919.4 Inactive Sirisha Chen [employer] SALES REPRESENTATIVE Pruritus ICD-698.9 Inactive Sirisha Chen [employer] SALES REPRESENTATIVE 04/09 Medication List Medication Instructions Start Date Stop Date Generic Name NDC Status Provider Patient Instruction TESSALMARTIN PERLES 100 MG ORAL CAPSULE 1-2 tablet by mouth 3 times daily 04/16 BENZONATATE 53833376002 Active Piotr Daley DO Active PREDNISONE 10 MG ORAL TABLET 1 tablet by mouth daily PREDNISONE 63361014340 Active Piotr Wilson Eid Active CYCLOBENZAPRINE HCL 10 MG ORAL TABLET 1 tablet by mouth three times daily as needed for muscle spasm/pain CYCLOBENZAPRINE HCL 97970468891 Active Piotr Wilson Edi Active PREDNISONE 20 MG ORAL TABLET two tabs by mouth today, then one tab by mouth days two and three PREDNISONE 55403379698 Active Piotr Daley Active ZITHROMAX 250 MG ORAL TABLET Take two (2 ) tablets day one, then one (1) tablet a day for four (4) more days AZITHROMYCIN 25541901546 No Longer Active Piotr Daley DO Active PROAIR HFA 108 (90 BASE) MCG/ACT INHALATION AEROSOL SOLUTION 1-2 puffs four times a day as needed ALBUTEROL SULFATE 42324068235 No Longer Active Emelyn Norris Active DOXYCYCLINE HYCLATE 100 MG ORAL CAPSULE 1 cap by mouth BID x10 days DOXYCYCLINE HYCLATE 01459482567 No Longer Active Nella Harris APRN Active WARFARIN SODIUM 5 MG ORAL TABLET 1 tablet daily M-S, 1/2 tab on Heart WARFARIN SODIUM 66732056089 Active Piotr Daley DO Active PREDNISONE 20 MG ORAL TABLET 2 tabs daily for 3 days, 1 tab daily for 3 days, 1/2 tab daily for 2 days PREDNISONE 72374690785 No Longer Active Matthew Rangel MD Active TRAMADOL HCL 50 MG ORAL TABLET 1 po tid with ES Tylenol TRAMADOL HCL 91154413337 No Longer Active Matthew Rangel MD Active GABAPENTIN 300 MG ORAL CAPSULE 1 po q hs for nerve pain GABAPENTIN 04065307756 No Longer Active Matthew Rangel MD Active PREDNISONE 20 MG ORAL TABLET 2 tablets today, then 1 tablet days 2 through 4 PREDNISONE 94581461734 No Longer Active Piotr Daley DO Active AZITHROMYCIN 250 MG ORAL TABLET 2 po qd x 1 day, then 1 po qd x 4 days 07/12 AZITHROMYCIN 72459370996 No Longer Active Piotr Daley DO Active IBUPROFEN 800 MG ORAL TABLET 1 tab every 8 hours as needed 07/12 IBUPROFEN 68373742681 No Longer Active Piotr Daley DO Active LOMOTIL 2.5-0.025 MG ORAL TABLET 1 to 2 four times a day as needed for diarrhea DIPHENOXYLATE-ATROPINE 85520397504 No Longer Active Piotr Daley DO Active WARFARIN SODIUM 4 MG ORAL TABLET 1 tab every evening WARFARIN SODIUM 17218072518 No Longer Active Piotr Daley DO Active PREDNISONE 20 MG ORAL TABLET 1 tablet twice daily for 2 days, then 1 tablet once daily for 2 days PREDNISONE 39880048750 No Longer Active Piotr Daley DO Active PROMETHAZINE HCL 25 MG ORAL TABLET 1 four times a day as needed for nausea/ vomiting PROMETHAZINE HCL 33142182105 No Longer Active Piotr Daley DO Active TUSSIONEX PENNKINETIC ER 10-8 MG/5ML ORAL SUSPENSION EXTENDED RELEASE 5ml po q12hr PRN Cough HYDROCOD POLST-CHLORPHEN POLST 84277838984 No Longer Active Piotr W Edi DO Active AZITHROMYCIN 250 MG ORAL TABLET 2 po qd x 1 day, then 1 po qd x 4 days 10/13 AZITHROMYCIN 35750616332 No Longer Active Piotr Daley DO Active AZITHROMYCIN 250 MG ORAL TABLET 2 po qd x 1 day, then 1 po qd x 4 days 05/07 AZITHROMYCIN 65540351093 No Longer Active Piotr Daley DO Active LISINOPRIL-HYDROCHLOROTHIAZIDE 10-12.5 MG ORAL TABLET 1 tab by mouth daily LISINOPRIL-HYDROCHLOROTHIAZIDE 40379833317 Active Piotr Daley DO Active LISINOPRIL 10 MG ORAL TABLET 1/2-1 tab po every other day LISINOPRIL 34725566699 No Longer Active Piotr Daley DO Active VENTOLIN HFA 108 (90 Base) MCG/ACT INHALATION AEROSOL SOLUTION 2 puffs four times a day PRN cough ALBUTEROL SULFATE 94777275867 No Longer Active Piotr Daley DO Active NYSTATIN-TRIAMCINOLONE 965824-2.1 UNIT/GM-% EXTERNAL CREAM Apply to area BID NYSTATIN-TRIAMCINOLONE 74883213369 No Longer Active Alena Chavira [employer] REPRESENTATIVE Active PHISOHEX 3 % LIQD Use Directed HEXACHLOROPHENE 73255023305 No Longer Active Sandra [place] Active AZITHROMYCIN 250 MG ORAL TABLET 2 po qd x 1 day, then 1 po qd x 4 days 10/21 AZITHROMYCIN 19087210302 No Longer Active Katrina Rinaldi MD PhD Active AZITHROMYCIN 250 MG ORAL TABLET 2 po qd x 1 day, then 1 po qd x 4 days 10/16 AZITHROMYCIN 96463049475 No Longer Active Piotr Daley DO Active AZITHROMYCIN 500 MG INTRAVENOUS SOLUTION RECONSTITUTED 1 po q day AZITHROMYCIN 33722405410 No Longer Active Piotr Daley DO Active NYSTATIN-TRIAMCINOLONE 150542-1.1 UNIT/GM-% EXTERNAL CREAM apply bid NYSTATIN-TRIAMCINOLONE 67511794555 No Longer Active Piotr Daley DO Active IBUPROFEN 800 MG ORAL TABLET 1 po q 8 hours prn pain sparinly IBUPROFEN 76911937255 No Longer Active Piotr Daley DO Active VITAMIN D3 5000 UNIT ORAL CAPSULE 1 po daily CHOLECALCIFEROL 77328075415 Active Piotr Daley DO Active IBUPROFEN 800 MG ORAL TABLET 1 po q 8 hours prn pain sparinly IBUPROFEN 800 MG ORAL TABLET 925702 IBUPROFEN Inactive NYSTATIN-TRIAMCINOLONE 773685-1.1 UNIT/GM-% EXTERNAL CREAM apply bid NYSTATIN-TRIAMCINOLONE 120811-1.1 UNIT/GM-% EXTERNAL CREAM 3246342 NYSTATIN-TRIAMCINOLONE Inactive AZITHROMYCIN 500 MG INTRAVENOUS SOLUTION RECONSTITUTED 1 po q day AZITHROMYCIN 500 MG INTRAVENOUS SOLUTION RECONSTITUTED 33515027235 AZITHROMYCIN Inactive VENTOLIN HFA 108 (90 Base) MCG/ACT INHALATION AEROSOL SOLUTION 2 puffs four times a day PRN cough VENTOLIN HFA 108 (90 Base) MCG/ ACT INHALATION AEROSOL SOLUTION ALBUTEROL SULFATE Inactive LISINOPRIL 10 MG ORAL TABLET 1/2-1 tab po every other day LISINOPRIL 10 MG ORAL TABLET 884123 LISINOPRIL Inactive TUSSIONEX PENNKINETIC ER 10-8 MG/5ML ORAL SUSPENSION EXTENDED RELEASE 5ml po q12hr PRN Cough TUSSIONEX PENNKINETIC ER 10-8 MG/5ML ORAL SUSPENSION EXTENDED RELEASE HYDROCOD POLST-CHLORPHEN POLST Inactive PROMETHAZINE HCL 25 MG ORAL TABLET 1 four times a day as needed for nausea/ vomiting PROMETHAZINE HCL 25 MG ORAL TABLET 131732 PROMETHAZINE HCL Inactive PREDNISONE 20 MG ORAL TABLET 1 tablet twice daily for 2 days, then 1 tablet once daily for 2 days PREDNISONE 20 MG ORAL TABLET 226959 PREDNISONE Inactive WARFARIN SODIUM 4 MG ORAL TABLET 1 tab every evening WARFARIN SODIUM 4 MG ORAL TABLET 768159 WARFARIN SODIUM Inactive LOMOTIL 2.5-0.025 MG ORAL TABLET 1 to 2 four times a day as needed for diarrhea LOMOTIL 2.5-0.025 MG ORAL TABLET 9834845 DIPHENOXYLATE-ATROPINE Inactive IBUPROFEN 800 MG ORAL TABLET 1 tab every 8 hours as needed 07/12 IBUPROFEN 800 MG ORAL TABLET 863743 IBUPROFEN Inactive PREDNISONE 20 MG ORAL TABLET 2 tablets today, then 1 tablet days 2 through 4 PREDNISONE 20 MG ORAL TABLET 571063 PREDNISONE Inactive GABAPENTIN 300 MG ORAL CAPSULE 1 po q hs for nerve pain GABAPENTIN 300 MG ORAL CAPSULE 206073 GABAPENTIN Inactive TRAMADOL HCL 50 MG ORAL TABLET 1 po tid with ES Tylenol TRAMADOL HCL 50 MG ORAL TABLET 842039 TRAMADOL HCL Inactive PROAIR HFA 108 (90 BASE) MCG/ACT INHALATION AEROSOL SOLUTION 1-2 puffs four times a day as needed PROAIR HFA 108 (90 BASE) MCG/ACT INHALATION AEROSOL SOLUTION ALBUTEROL SULFATE Inactive AZITHROMYCIN 250 MG ORAL TABLET 2 po qd x 1 day, then 1 po qd x 4 days 10/16 AZITHROMYCIN 250 MG ORAL TABLET 044484 AZITHROMYCIN Inactive AZITHROMYCIN 250 MG ORAL TABLET 2 po qd x 1 day, then 1 po qd x 4 days 10/21 AZITHROMYCIN 250 MG ORAL TABLET 185088 AZITHROMYCIN Inactive NYSTATIN-TRIAMCINOLONE 422276-7.1 UNIT/GM-% EXTERNAL CREAM Apply to area BID NYSTATIN-TRIAMCINOLONE 823123-4.1 UNIT/GM-% EXTERNAL CREAM 5081947 NYSTATIN-TRIAMCINOLONE Inactive AZITHROMYCIN 250 MG ORAL TABLET 2 po qd x 1 day, then 1 po qd x 4 days 05/07 AZITHROMYCIN 250 MG ORAL TABLET 382047 AZITHROMYCIN Inactive AZITHROMYCIN 250 MG ORAL TABLET 2 po qd x 1 day, then 1 po qd x 4 days 10/13 AZITHROMYCIN 250 MG ORAL TABLET 602969 AZITHROMYCIN Inactive AZITHROMYCIN 250 MG ORAL TABLET 2 po qd x 1 day, then 1 po qd x 4 days 07/12 AZITHROMYCIN 250 MG ORAL TABLET 830428 AZITHROMYCIN Inactive PREDNISONE 20 MG ORAL TABLET 2 tabs daily for 3 days, 1 tab daily for 3 days, 1/2 tab daily for 2 days PREDNISONE 20 MG ORAL TABLET 843014 PREDNISONE Inactive DOXYCYCLINE HYCLATE 100 MG ORAL CAPSULE 1 cap by mouth BID x10 days DOXYCYCLINE HYCLATE 100 MG ORAL CAPSULE 9840812 DOXYCYCLINE HYCLATE Inactive ZITHROMAX 250 MG ORAL TABLET Take two (2 ) tablets day one, then one (1) tablet a day for four (4) more days ZITHROMAX 250 MG ORAL TABLET 483934 AZITHROMYCIN Inactive Advance Directives Directive Description Start [...] Panel - Chemistry sodium, serum 141 mmol/L 789-418 9384/01/24 potassium, serum 4.3 mmol/L 3.5-5.2 chloride, serum [...] % 11.0-15.0 platelet count 172 THOUSAND/UL 10*3/mm3 473-587 7812/04/12 mean platelet volume 8.6 fL 7.5-12.5 Lab Report: Prothrombin Time - Coagulation prothrombin time (patient) 27.8 SECS s 11.1-13.4 international normalized ratio (INR) 4.2 1.0-3.5 Lab Report: Prothrombin Time Hemochron - Coagulation prothrombin time (patient) 33.0 SECS s 18.9-24.9 Encounters Code Encounter Date Provider Facility CPT-62574 Level 3 Est. Patient 12:33:59 [employer] MACHINE OPERATOR Piotr Daley [facility] CPT-12170 Level 3 Est. Patient 15:56:17 [employer]OTH DOU[employer] MACHINE OPERATOR Piotr Katie Daley [facility] CPT-34275 Level 3 Est. Patient 10:34:54 [employer] DOU[employer] MACHINE OPERATOR Piotr Katie Daley [facility] CPT-43767 Level 3 Est. Patient 17:10:19 CDT Nella Harris APRN [facility] CPT-02685 Level 3 Est. Patient 10:48:17 [employer] DOU[employer] MACHINE OPERATOR Matthew Rangel MD [facility] CPT-50046 Level 4 Est. Patient 17:15:07 [employer]OTH DOUBLING MACHINE OPERATOR Piotr Daley [facility] CPT-48431 Level 3 Est. Patient 12:46:13 [employer]OTH DOUBLING MACHINE OPERATOR Piotr Daley [facility] CPT-70474 Level 3 Est. Patient 15:14:31 [employer]OTH DOUBLING MACHINE OPERATOR Piotr Katie Daley [facility] CPT-64674 Level 3 Est. Patient 09:20:13 [employer]OTH DOUBLING MACHINE OPERATOR Piotr Daley [facility] CPT-19771 Level 3 Est. Patient 09:49:40 CDT Piotr Wilson [facility] CPT-04624 Level 3 Est. Patient 16:28:11 CDT Piotr Daley [facility] CPT-13721 Level 3 Est. Patient 12:41:58 [employer] DOUBLING MACHINE OPERATOR Piotr Daley [facility] CPT-59287 Level 3 Est. Patient 09:21:24 CDT Piotr Wilson [facility] CPT-28010 Level 3 Est. Patient 09:21:11 CDT Piotr Wilson [facility] CPT-32279 Level 3 Est. Patient 11:16:29 [employer] DOUBLING MACHINE OPERATOR Piotr Daley [facility] CPT-46795 Level 3 Est. Patient 18:40:19 [employer]OTH DOUBLING MACHINE OPERATOR Piotr Daley [facility] CPT-19381 Level 3 Est. Patient 19:30:50 CDT Piotr Daley [facility] CPT-43728 Level 3 Est. Patient 22:06:44 CDT Katrina Rinaldi MD [facility] CPT-23850 Level 3 Est. Patient 14:20:00 CDT Piotr Daley [facility] CPT-61111 Level 3 Est. Patient 14:15:22 [employer]OTH DOUBLING MACHINE OPERATOR Piotr Daley [facility] CPT-28109 Level 3 Est. Patient 20:19:57 [employer]OTH DOUBLING MACHINE OPERATOR Piotr Daley [facility] CPT-76620 Level 3 Est. Patient 16:44:32 CDT Piotr Daley [facility] CPT-41231 Level 3 Est. Patient 08:48:46 [employer]OTH DOUBLING MACHINE OPERATOR Piotr Daley DO [facility] CPT-49026 Level 3 Est. Patient 21:01:21 CDT Poitr Daley [facility] Procedures Code Procedure Name Date Entry Date Standard Description CPT-43155 Chest, 2 views 12:55:58 [employer]OU[employer] MACHINE OPERATOR CPT-G0439 [facility] Annual Wellness Exam 10:34:52 [employer] DOUBLING MACHINE OPERATOR CPT-06188 BMP - LAB USE ONLY 17:19:11 [employer] DOUBLING MACHINE OPERATOR CPT-43181 PT/INR - LAB USE ONLY 17:19:10 [employer] DOU[employer]ING MACHINE OPERATOR CPT-94147 Venipuncture Draw Fee 17:19:10 [employer] DOU[employer]ING MACHINE OPERATOR CPT-13152 PT/INR - LAB USE ONLY 08:12:25 [employer] DOUBLING MACHINE OPERATOR CPT-66061 Venipuncture Draw Fee 08:12:24 [employer]OTH DOUBLING MACHINE OPERATOR CPT-86571 Venipuncture Draw Fee 11:31:07 [employer]OTH DOUBLING MACHINE OPERATOR CPT-63376 TPSA - LAB USE ONLY 11:31:07 [employer]OTH DOUBLING MACHINE OPERATOR CPT-88914 PT/INR - LAB USE ONLY 11:31:07 [employer]OTH DOUBLING MACHINE OPERATOR CPT-G0439 Subsequent Annual Wellness Exam 09:59:29 [employer] DOUBLING MACHINE OPERATOR CPT-12573 Creatinine - LAB USE ONLY 14:37:55 [employer] DOUBLING MACHINE OPERATOR CPT-82900 PT/INR - LAB USE ONLY 14:37:55 [employer]OTH DOUBLING MACHINE OPERATOR CPT-75469 Venipuncture Draw Fee 14:37:55 [employer]OTH DOUBLING MACHINE OPERATOR CPT-14463 LS spine comp w obliques - XRAY USE ONLY 12:59:25 [employer]OTH DOUBLING MACHINE OPERATOR CPT-40423 PT/INR - LAB USE ONLY 13:49:20 CDT CPT-65968 Venipuncture Draw Fee 13:49:19 CDT CPT-86380 PT/INR - LAB USE ONLY 15:48:49 CDT CPT-53838 Venipuncture Draw Fee 15:48:49 CDT CPT-21874 Venipuncture Draw Fee 11:31:59 CDT CPT-43775 PT/INR - LAB USE ONLY 11:31:59 CDT CPT-65497 Venipuncture Draw Fee 13:29:15 CDT CPT-63357 Thoracolumbar AP/Lat 15:19:19 [employer] DOUBLING MACHINE OPERATOR CPT-G0438 Initial Annual Wellness Exam 12:18:54 [employer]OTH DOUBLING MACHINE OPERATOR CPT-17573 Knee 3V 09:57:38 CDT CPT-OV Office Visit 15:45:01 [employer]OTH DOUBLING MACHINE OPERATOR CPT-62714 Abd compl w upright 17:10:25 CDT
--- OUTSIDE RECORDS SUMMARY | 2018-07-18 10:48 | XMS REPORT | Clinical Summary ---
Author Author Admin, [employer] Address Unknown Phone Unavailable Allergies, Adverse [...] Knee pain, left ICD-719.46 Inactive Sirisha Chen PARKING ENFORCEMENT TECHNICIAN Actinic keratoses ICD-702.0 Inactive Sirisha Chen PARKING ENFORCEMENT TECHNICIAN Back pain, thoracic region, left ICD-724.1 Inactive Piotr Daley DO Thoracic back pain ICD-724.5 Inactive Sirisha Chen PARKING ENFORCEMENT TECHNICIAN Back pain lumbar ICD-724.2 Inactive Sirisha Chen PARKING ENFORCEMENT TECHNICIAN Insect bite ICD-919.4 Inactive Sirisha Chen PARKING ENFORCEMENT TECHNICIAN Pruritus ICD-698.9 Inactive Sirisha Chen PARKING ENFORCEMENT TECHNICIAN 04/09 Bronchitis-Acute ICD-466.0 Inactive Sirisha Chen PARKING ENFORCEMENT TECHNICIAN Dyspnea ICD-786.09 Inactive Sirisha Chen PARKING ENFORCEMENT TECHNICIAN 05/09 Medication List Medication Instructions Start Date Stop Date Generic Name NDC Status Provider Patient Instruction WARFARIN SODIUM 4 MG ORAL TABLET 1 tablet by mouth daily except 2mg on Saturday and Saturday WARFARIN SODIUM 36475812435 Active Anahy Loja Active MELOXICAM 15 MG ORAL TABLET 1 po q day for pain with food MELOXICAM 78437084581 Active Piotr Daley DO Active PREDNISONE 10 MG ORAL TABLET 1 tablet by mouth daily PREDNISONE 93598161587 No Longer Active Emelyn Norris Active TESSALON PERLES 100 MG ORAL CAPSULE 1-2 tablet by mouth 3 times daily 04/16 BENZONATATE 67813355445 No Longer Active Emelyn Norris Active PREDNISONE 20 MG ORAL TABLET two tabs by mouth today, then one tab by mouth days two and three PREDNISONE 24619194610 No Longer Active Piotr W Edi DO Active CYCLOBENZAPRINE HCL 10 MG ORAL TABLET 1 tablet by mouth three times daily as needed for muscle spasm/pain CYCLOBENZAPRINE HCL 97335262443 Active Sirisha Chen LPN Active ZITHROMAX 250 MG ORAL TABLET Take two (2 ) tablets day one, then one (1) tablet a day for four (4) more days AZITHROMYCIN 34815634640 No Longer Active Piotr Daley DO Active PROAIR HFA 108 (90 BASE) MCG/ACT INHALATION AEROSOL SOLUTION 1-2 puffs four times a day as needed ALBUTEROL SULFATE 02815539139 No Longer Active Emelyn Norris Active DOXYCYCLINE HYCLATE 100 MG ORAL CAPSULE 1 cap by mouth BID x10 days DOXYCYCLINE HYCLATE 87566185427 No Longer Active Nella Harris APRN Active PREDNISONE 20 MG ORAL TABLET 2 tabs daily for 3 days, 1 tab daily for 3 days, 1/2 tab daily for 2 days PREDNISONE 00712992777 No Longer Active Matthew Rangel MD Active TRAMADOL HCL 50 MG ORAL TABLET 1 po tid with ES Tylenol TRAMADOL HCL 24548795616 No Longer Active Matthew Rangel MD Active GABAPENTIN 300 MG ORAL CAPSULE 1 po q hs for nerve pain GABAPENTIN 83324383177 No Longer Active Matthew Rangel MD Active PREDNISONE 20 MG ORAL TABLET 2 tablets today, then 1 tablet days 2 through 4 PREDNISONE 05929279145 No Longer Active Piotr Daley DO Active AZITHROMYCIN 250 MG ORAL TABLET 2 po qd x 1 day, then 1 po qd x 4 days 07/12 AZITHROMYCIN 62859882450 No Longer Active Piotr Daley DO Active IBUPROFEN 800 MG ORAL TABLET 1 tab every 8 hours as needed 07/12 IBUPROFEN 71370550195 No Longer Active Piotr Daley DO Active LOMOTIL 2.5-0.025 MG ORAL TABLET 1 to 2 four times a day as needed for diarrhea DIPHENOXYLATE-ATROPINE 23191216483 No Longer Active Piotr Daley DO Active WARFARIN SODIUM 4 MG ORAL TABLET 1 tab every evening WARFARIN SODIUM 41488658064 No Longer Active Piotr Daley DO Active PREDNISONE 20 MG ORAL TABLET 1 tablet twice daily for 2 days, then 1 tablet once daily for 2 days PREDNISONE 68372732978 No Longer Active Piotr Daley DO Active PROMETHAZINE HCL 25 MG ORAL TABLET 1 four times a day as needed for nausea/ vomiting PROMETHAZINE HCL 54445549250 No Longer Active Piotr Daley DO Active TUSSIONEX PENNKINETIC ER 10-8 MG/5ML ORAL SUSPENSION EXTENDED RELEASE 5ml po q12hr PRN Cough HYDROCOD POLST-CHLORPHEN POLST 81968433470 No Longer Active Piotr Daley DO Active AZITHROMYCIN 250 MG ORAL TABLET 2 po qd x 1 day, then 1 po qd x 4 days 10/13 AZITHROMYCIN 79754802860 No Longer Active Piotr Daley DO Active AZITHROMYCIN 250 MG ORAL TABLET 2 po qd x 1 day, then 1 po qd x 4 days 05/07 AZITHROMYCIN 77464597631 No Longer Active Piotr Daley DO Active LISINOPRIL-HYDROCHLOROTHIAZIDE 10-12.5 MG ORAL TABLET 1 tab by mouth daily LISINOPRIL-HYDROCHLOROTHIAZIDE 17865559275 Active Piotr Daley DO Active LISINOPRIL 10 MG ORAL TABLET 1/2-1 tab po every other day LISINOPRIL 79729554457 No Longer Active Piotr Daley DO Active VENTOLIN HFA 108 (90 Base) MCG/ACT INHALATION AEROSOL SOLUTION 2 puffs four times a day PRN cough ALBUTEROL SULFATE 54997821905 No Longer Active Piotr Daley DO Active NYSTATIN-TRIAMCINOLONE 344621-4.1 UNIT/GM-% EXTERNAL CREAM Apply to area BID NYSTATIN-TRIAMCINOLONE 82456453534 No Longer Active Alena Chavira PARKING ENFORCEMENT TECHNICIAN Active PHISOHEX 3 % LIQD Use Directed HEXACHLOROPHENE 77819114283 No Longer Active Sandra [place] Active AZITHROMYCIN 250 MG ORAL TABLET 2 po qd x 1 day, then 1 po qd x 4 days 10/21 AZITHROMYCIN 48428973832 No Longer Active Katrina Rinaldi MD PhD Active AZITHROMYCIN 250 MG ORAL TABLET 2 po qd x 1 day, then 1 po qd x 4 days 10/16 AZITHROMYCIN 80016502408 No Longer Active Piotr Daley DO Active AZITHROMYCIN 500 MG INTRAVENOUS SOLUTION RECONSTITUTED 1 po q day AZITHROMYCIN 26071432186 No Longer Active Piotr Daley DO Active NYSTATIN-TRIAMCINOLONE 185946-3.1 UNIT/GM-% EXTERNAL CREAM apply bid NYSTATIN-TRIAMCINOLONE 23605214042 No Longer Active Piotr Daley DO Active IBUPROFEN 800 MG ORAL TABLET 1 po q 8 hours prn pain sparinly IBUPROFEN 06239111804 No Longer Active Piotr Daley DO Active VITAMIN D3 5000 UNIT ORAL CAPSULE 1 po daily CHOLECALCIFEROL 92993012956 Active Piotr Daley DO Active IBUPROFEN 800 MG ORAL TABLET 1 po q 8 hours prn pain sparinly IBUPROFEN 800 MG ORAL TABLET 630010 IBUPROFEN Inactive NYSTATIN-TRIAMCINOLONE 377885-4.1 UNIT/GM-% EXTERNAL CREAM apply bid NYSTATIN-TRIAMCINOLONE 812728-8.1 UNIT/GM-% EXTERNAL CREAM 6072995 NYSTATIN-TRIAMCINOLONE Inactive AZITHROMYCIN 500 MG INTRAVENOUS SOLUTION RECONSTITUTED 1 po q day AZITHROMYCIN 500 MG INTRAVENOUS SOLUTION RECONSTITUTED 18303912611 AZITHROMYCIN Inactive VENTOLIN HFA 108 (90 Base) MCG/ACT INHALATION AEROSOL SOLUTION 2 puffs four times a day PRN cough VENTOLIN HFA 108 (90 Base) MCG/ ACT INHALATION AEROSOL SOLUTION ALBUTEROL SULFATE Inactive LISINOPRIL 10 MG ORAL TABLET 1/2-1 tab po every other day LISINOPRIL 10 MG ORAL TABLET 331747 LISINOPRIL Inactive TUSSIONEX PENNKINETIC ER 10-8 MG/5ML ORAL SUSPENSION EXTENDED RELEASE 5ml po q12hr PRN Cough TUSSIONEX PENNKINETIC ER 10-8 MG/5ML ORAL SUSPENSION EXTENDED RELEASE HYDROCOD POLST-CHLORPHEN POLST Inactive PROMETHAZINE HCL 25 MG ORAL TABLET 1 four times a day as needed for nausea/ vomiting PROMETHAZINE HCL 25 MG ORAL TABLET 895762 PROMETHAZINE HCL Inactive PREDNISONE 20 MG ORAL TABLET 1 tablet twice daily for 2 days, then 1 tablet once daily for 2 days PREDNISONE 20 MG ORAL TABLET 180511 PREDNISONE Inactive WARFARIN SODIUM 4 MG ORAL TABLET 1 tab every evening WARFARIN SODIUM 4 MG ORAL TABLET 000740 WARFARIN SODIUM Inactive LOMOTIL 2.5-0.025 MG ORAL TABLET 1 to 2 four times a day as needed for diarrhea LOMOTIL 2.5-0.025 MG ORAL TABLET 7348477 DIPHENOXYLATE-ATROPINE Inactive IBUPROFEN 800 MG ORAL TABLET 1 tab every 8 hours as needed 07/12 IBUPROFEN 800 MG ORAL TABLET 919496 IBUPROFEN Inactive PREDNISONE 20 MG ORAL TABLET 2 tablets today, then 1 tablet days 2 through 4 PREDNISONE 20 MG ORAL TABLET 296685 PREDNISONE Inactive GABAPENTIN 300 MG ORAL CAPSULE 1 po q hs for nerve pain GABAPENTIN 300 MG ORAL CAPSULE 081596 GABAPENTIN Inactive TRAMADOL HCL 50 MG ORAL TABLET 1 po tid with ES Tylenol TRAMADOL HCL 50 MG ORAL TABLET 927816 TRAMADOL HCL Inactive PROAIR HFA 108 (90 BASE) MCG/ACT INHALATION AEROSOL SOLUTION 1-2 puffs four times a day as needed PROAIR HFA 108 (90 BASE) MCG/ACT INHALATION AEROSOL SOLUTION ALBUTEROL SULFATE Inactive PREDNISONE 20 MG ORAL TABLET two tabs by mouth today, then one tab by mouth days two and three PREDNISONE 20 MG ORAL TABLET 972506 PREDNISONE Inactive TESSALON PERLES 100 MG ORAL CAPSULE 1-2 tablet by mouth 3 times daily 04/16 TESSALON PERLES 100 MG ORAL CAPSULE 460774 BENZONATATE Inactive PREDNISONE 10 MG ORAL TABLET 1 tablet by mouth daily PREDNISONE 10 MG ORAL TABLET 113000 PREDNISONE Inactive AZITHROMYCIN 250 MG ORAL TABLET 2 po qd x 1 day, then 1 po qd x 4 days 10/16 AZITHROMYCIN 250 MG ORAL TABLET 931849 AZITHROMYCIN Inactive AZITHROMYCIN 250 MG ORAL TABLET 2 po qd x 1 day, then 1 po qd x 4 days 10/21 AZITHROMYCIN 250 MG ORAL TABLET 299408 AZITHROMYCIN Inactive NYSTATIN-TRIAMCINOLONE 516718-4.1 UNIT/GM-% EXTERNAL CREAM Apply to area BID NYSTATIN-TRIAMCINOLONE 214507-3.1 UNIT/GM-% EXTERNAL CREAM 3387633 NYSTATIN-TRIAMCINOLONE Inactive AZITHROMYCIN 250 MG ORAL TABLET 2 po qd x 1 day, then 1 po qd x 4 days 05/07 AZITHROMYCIN 250 MG ORAL TABLET 071691 AZITHROMYCIN Inactive AZITHROMYCIN 250 MG ORAL TABLET 2 po qd x 1 day, then 1 po qd x 4 days 10/13 AZITHROMYCIN 250 MG ORAL TABLET 643366 AZITHROMYCIN Inactive AZITHROMYCIN 250 MG ORAL TABLET 2 po qd x 1 day, then 1 po qd x 4 days 07/12 AZITHROMYCIN 250 MG ORAL TABLET 501108 AZITHROMYCIN Inactive PREDNISONE 20 MG ORAL TABLET 2 tabs daily for 3 days, 1 tab daily for 3 days, 1/2 tab daily for 2 days PREDNISONE 20 MG ORAL TABLET 544821 PREDNISONE Inactive DOXYCYCLINE HYCLATE 100 MG ORAL CAPSULE 1 cap by mouth BID x10 days DOXYCYCLINE HYCLATE 100 MG ORAL CAPSULE 3860624 DOXYCYCLINE HYCLATE Inactive ZITHROMAX 250 MG ORAL TABLET Take two (2 ) tablets day one, then one (1) tablet a day for four (4) more days ZITHROMAX 250 MG ORAL TABLET 548107 AZITHROMYCIN Inactive Advance Directives Directive Description Start [...] % 11.0-15.0 platelet count 172 THOUSAND/UL 10*3/mm3 660-948 8314/04/12 mean platelet volume 8.6 fL 7.5-12.5 Lab Report: Prothrombin Time Hemochron - Coagulation prothrombin time (patient) 33.0 SECS s 18.9-24.9 Encounters Code Encounter Date Provider Facility CPT-74869 Level 3 Est. Patient 15:59:25 [employer] Piotr Daley [facility] CPT-90762 Level 3 Est. Patient 12:33:59 [employer] Piotr Daley [facility] CPT-71118 Level 3 Est. Patient 15:56:17 [employer] Piotr Daley [facility] CPT-09994 Level 3 Est. Patient 10:34:54 [employer] Piotr Daley [facility] CPT-71474 Level 3 Est. Patient 17:10:19 MALACHI Harris APRN [facility] CPT-67369 Level 3 Est. Patient 10:48:17 [employer] Matthew Rangel MD [facility] CPT-30460 Level 4 Est. Patient 17:15:07 [employer] Piotr Daley [facility] CPT-06398 Level 3 Est. Patient 12:46:13 [employer] Piotr Daley [facility] CPT-59926 Level 3 Est. Patient 15:14:31 [employer] Piotr Katie Daley [facility] CPT-76469 Level 3 Est. Patient 09:20:13 [employer] Piotr Daley [facility] CPT-64195 Level 3 Est. Patient 09:49:40 CDT Piotr Daley [facility] CPT-53584 Level 3 Est. Patient 16:28:11 CDT Piotr Daley [facility] CPT-24102 Level 3 Est. Patient 12:41:58 [employer] Piotr Daley [facility] CPT-57728 Level 3 Est. Patient 09:21:24 CDT Piotr Daley [facility] CPT-15608 Level 3 Est. Patient 09:21:11 CDT Piotr Daley [facility] CPT-96082 Level 3 Est. Patient 11:16:29 [employer] Piotr Daley [facility] CPT-75457 Level 3 Est. Patient 18:40:19 [employer] Piotr Daley [facility] CPT-70050 Level 3 Est. Patient 19:30:50 CDT Piotr Daley [facility] CPT-53884 Level 3 Est. Patient 22:06:44 CDT Katrina Rinaldi MD PhD [facility]-02902 Level 3 Est. Patient 14:20:00 CDT Piotr Daley [facility] CPT-41557 Level 3 Est. Patient 14:15:22 [employer] Piotr Daley [facility] CPT-59990 Level 3 Est. Patient 20:19:57 [employer] Piotr Daley [facility] CPT-04390 Level 3 Est. Patient 16:44:32 CDT Piotr Daley [facility] CPT-70739 Level 3 Est. Patient 08:48:46 [employer] Piotr Daley [facility] CPT-94945 Level 3 Est. Patient 21:01:21 CDT Piotr Daley [facility] Procedures Code Procedure Name Date Entry Date Standard Description CPT-40211 Sacroiliac jt < 3V - XRAY USE ONLY 16:45:19 [employer] 05/09 CPT-08531 LS spine comp w obliques - XRAY USE ONLY 14:52:26 [employer] CPT-22900 Chest, 2 views 12:55:58 [employer] CPT-G0439 Subsequent Annual Wellness Exam 10:34:52 [employer] CPT-92636 BMP - LAB USE ONLY 17:19:11 [employer] CPT-74107 PT/INR - LAB USE ONLY 17:19:10 [employer] CPT-09436 Venipuncture Draw Fee 17:19:10 [employer] CPT-04384 PT/INR - LAB USE ONLY 08:12:25 [employer] CPT-51221 Venipuncture Draw Fee 08:12:24 [employer] CPT-57407 Venipuncture Draw Fee 11:31:07 [employer] CPT-05894 TPSA - LAB USE ONLY 11:31:07 [employer] CPT-68342 PT/INR - LAB USE ONLY 11:31:07 [employer] CPT-G0439 Subsequent Annual Wellness Exam 09:59:29 [employer] CPT-24208 Creatinine - LAB USE ONLY 14:37:55 [employer] CPT-29056 PT/INR - LAB USE ONLY 14:37:55 [employer] CPT-40164 Venipuncture Draw Fee 14:37:55 [employer] CPT-52388 LS spine comp w obliques - XRAY USE ONLY 12:59:25 [employer] CPT-24784 PT/INR - LAB USE ONLY 13:49:20 CDT CPT-21615 Venipuncture Draw Fee 13:49:19 CDT CPT-94652 PT/INR - LAB USE ONLY 15:48:49 CDT CPT-67232 Venipuncture Draw Fee 15:48:49 CDT CPT-73697 Venipuncture Draw Fee 11:31:59 CDT CPT-89394 PT/INR - LAB USE ONLY 11:31:59 CDT CPT-10471 Venipuncture Draw Fee 13:29:15 CDT CPT-84914 Thoracolumbar AP/Lat 15:19:19 [employer] CPT-G0438 Initial Annual Wellness Exam 12:18:54 [employer] CPT-28387 Knee 3V 09:57:38 CDT CPT-OV Office Visit 15:45:01 [employer] CPT-70103 Abd compl w upright 17:10:25 CDT
--- OUTSIDE RECORDS SUMMARY | 2018-07-18 10:49 | XMS REPORT | Clinical Summary ---
Author Author Admin, Isidra Organization [employer] Address Unknown Phone Unavailable Allergies, Adverse [...] Coronary atherosclerosis of unspecified type of vessel, sycuan or graft Back pain, thoracic region, left [...] THROMBOPHLEBITIS, LEG, 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 Inactive Sirisha Chen BATTERY ENGINEER DEEP VENOUS THROMBOPHLEBITIS, LEG, 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 Inactive Sirisha Chen BATTERY ENGINEER Seborrheic keratosis ICD-702.19 Inactive Sirisha Chen BATTERY ENGINEER Bronchitis-Acute ICD-466.0 Inactive Piotr Daley DO Leg pain, right ICD-729.5 Inactive Sirisha Chen BATTERY ENGINEER Right leg pain ICD-729.5 Inactive Sirisha Chen BATTERY ENGINEER Bronchitis-Acute ICD-466.0 Inactive Sirisha Chen BATTERY ENGINEER Knee pain, left ICD-719.46 Inactive Sirisha Chen BATTERY ENGINEER Actinic keratoses ICD-702.0 Inactive Sirisha Chen BATTERY ENGINEER Back pain, thoracic region, left ICD-724.1 Inactive Piotr Daley DO Thoracic back pain ICD-724.5 Inactive Sirisha Chen BATTERY ENGINEER Back pain lumbar ICD-724.2 Inactive Sirisha Chen BATTERY ENGINEER Insect bite ICD-919.4 Inactive Sirisha Chen BATTERY ENGINEER Pruritus ICD-698.9 Inactive Sirisha Chen BATTERY ENGINEER 04/09 Medication List Medication Instructions Start Date Stop Date Generic Name NDC Status Provider Patient Instruction WARFARIN SODIUM 5 MG ORAL TABLET 1 tablet daily M, T, T, F, Sa, 1/2 tab on W, Heart WARFARIN SODIUM 94003375530 Active Sirishaandre Chen LPN Active TESSALON PERLES 100 MG ORAL CAPSULE 1-2 tablet by mouth 3 times daily 04/16 BENZONATATE 10213369655 Active Piotr Daley DO Active PREDNISONE 10 MG ORAL TABLET 1 tablet by mouth daily PREDNISONE 20047190988 Active Piotr Daley DO Active PREDNISONE 20 MG ORAL TABLET two tabs by mouth today, then one tab by mouth days two and three PREDNISONE 20908077892 No Longer Active Piotr Daley DO Active CYCLOBENZAPRINE HCL 10 MG ORAL TABLET 1 tablet by mouth three times daily as needed for muscle spasm/pain CYCLOBENZAPRINE HCL 49757766209 Active Piotr Daley DO Active ZITHROMAX 250 MG ORAL TABLET Take two (2 ) tablets day one, then one (1) tablet a day for four (4) more days AZITHROMYCIN 44624458752 No Longer Active Piotr Daley DO Active PROAIR HFA 108 (90 BASE) MCG/ACT INHALATION AEROSOL SOLUTION 1-2 puffs four times a day as needed ALBUTEROL SULFATE 84816774507 No Longer Active Emelyn Norris Active DOXYCYCLINE HYCLATE 100 MG ORAL CAPSULE 1 cap by mouth BID x10 days DOXYCYCLINE HYCLATE 39804683200 No Longer Active Nella Harris APRN Active PREDNISONE 20 MG ORAL TABLET 2 tabs daily for 3 days, 1 tab daily for 3 days, 1/2 tab daily for 2 days PREDNISONE 13518667622 No Longer Active Matthew Rangel MD Active TRAMADOL HCL 50 MG ORAL TABLET 1 po tid with ES Tylenol TRAMADOL HCL 91109826304 No Longer Active Matthew Rangel MD Active GABAPENTIN 300 MG ORAL CAPSULE 1 po q hs for nerve pain GABAPENTIN 14258812903 No Longer Active Matthew Rangel MD Active PREDNISONE 20 MG ORAL TABLET 2 tablets today, then 1 tablet days 2 through 4 PREDNISONE 19271872630 No Longer Active Piotr Daley DO Active AZITHROMYCIN 250 MG ORAL TABLET 2 po qd x 1 day, then 1 po qd x 4 days 07/12 AZITHROMYCIN 48831876552 No Longer Active Piotr Daley DO Active IBUPROFEN 800 MG ORAL TABLET 1 tab every 8 hours as needed 07/12 IBUPROFEN 57123423467 No Longer Active Piotr Daley DO Active LOMOTIL 2.5-0.025 MG ORAL TABLET 1 to 2 four times a day as needed for diarrhea DIPHENOXYLATE-ATROPINE 61476454823 No Longer Active Piotr Daley DO Active WARFARIN SODIUM 4 MG ORAL TABLET 1 tab every evening WARFARIN SODIUM 87378774479 No Longer Active Piotr Daley DO Active PREDNISONE 20 MG ORAL TABLET 1 tablet twice daily for 2 days, then 1 tablet once daily for 2 days PREDNISONE 61019182621 No Longer Active Piotr Daley DO Active PROMETHAZINE HCL 25 MG ORAL TABLET 1 four times a day as needed for nausea/ vomiting PROMETHAZINE HCL 33464141021 No Longer Active Piotr Daley DO Active TUSSIONEX PENNKINETIC ER 10-8 MG/5ML ORAL SUSPENSION EXTENDED RELEASE 5ml po q12hr PRN Cough HYDROCOD POLST-CHLORPHEN POLST 18776976350 No Longer Active Piotr Daley DO Active AZITHROMYCIN 250 MG ORAL TABLET 2 po qd x 1 day, then 1 po qd x 4 days 10/13 AZITHROMYCIN 11779246273 No Longer Active Piotr Daley DO Active AZITHROMYCIN 250 MG ORAL TABLET 2 po qd x 1 day, then 1 po qd x 4 days 05/07 AZITHROMYCIN 09658897346 No Longer Active Piotr Daley DO Active LISINOPRIL-HYDROCHLOROTHIAZIDE 10-12.5 MG ORAL TABLET 1 tab by mouth daily LISINOPRIL-HYDROCHLOROTHIAZIDE 48064757971 Active Piotr Daley DO Active LISINOPRIL 10 MG ORAL TABLET 1/2-1 tab po every other day LISINOPRIL 23669898603 No Longer Active Piotr Daley DO Active VENTOLIN HFA 108 (90 Base) MCG/ACT INHALATION AEROSOL SOLUTION 2 puffs four times a day PRN cough ALBUTEROL SULFATE 35971364941 No Longer Active Piotr Daley DO Active NYSTATIN-TRIAMCINOLONE 629503-2.1 UNIT/GM-% EXTERNAL CREAM Apply to area BID NYSTATIN-TRIAMCINOLONE 72053060681 No Longer Active Alena Chavira BATTERY ENGINEER Active PHISOHEX 3 % LIQD Use Directed HEXACHLOROPHENE 76236755410 No Longer Active Sandra [place] Active AZITHROMYCIN 250 MG ORAL TABLET 2 po qd x 1 day, then 1 po qd x 4 days 10/21 AZITHROMYCIN 24224911638 No Longer Active Katrina Rinaldi MD PhD Active AZITHROMYCIN 250 MG ORAL TABLET 2 po qd x 1 day, then 1 po qd x 4 days 10/16 AZITHROMYCIN 41059080170 No Longer Active Piotr Daley DO Active AZITHROMYCIN 500 MG INTRAVENOUS SOLUTION RECONSTITUTED 1 po q day AZITHROMYCIN 66278095131 No Longer Active Piotr Daley DO Active NYSTATIN-TRIAMCINOLONE 775742-4.1 UNIT/GM-% EXTERNAL CREAM apply bid NYSTATIN-TRIAMCINOLONE 09453237589 No Longer Active Piotr Daley DO Active IBUPROFEN 800 MG ORAL TABLET 1 po q 8 hours prn pain sparinly IBUPROFEN 08421415631 No Longer Active Piotr Daley DO Active VITAMIN D3 5000 UNIT ORAL CAPSULE 1 po daily CHOLECALCIFEROL 19237447959 Active Piotr Daley DO Active IBUPROFEN 800 MG ORAL TABLET 1 po q 8 hours prn pain sparinly IBUPROFEN 800 MG ORAL TABLET 431007 IBUPROFEN Inactive NYSTATIN-TRIAMCINOLONE 471578-8.1 UNIT/GM-% EXTERNAL CREAM apply bid NYSTATIN-TRIAMCINOLONE 854046-2.1 UNIT/GM-% EXTERNAL CREAM 5820482 NYSTATIN-TRIAMCINOLONE Inactive AZITHROMYCIN 500 MG INTRAVENOUS SOLUTION RECONSTITUTED 1 po q day AZITHROMYCIN 500 MG INTRAVENOUS SOLUTION RECONSTITUTED 36198011399 AZITHROMYCIN Inactive VENTOLIN HFA 108 (90 Base) MCG/ACT INHALATION AEROSOL SOLUTION 2 puffs four times a day PRN cough VENTOLIN HFA 108 (90 Base) MCG/ ACT INHALATION AEROSOL SOLUTION ALBUTEROL SULFATE Inactive LISINOPRIL 10 MG ORAL TABLET 1/2-1 tab po every other day LISINOPRIL 10 MG ORAL TABLET 075302 LISINOPRIL Inactive TUSSIONEX PENNKINETIC ER 10-8 MG/5ML ORAL SUSPENSION EXTENDED RELEASE 5ml po q12hr PRN Cough TUSSIONEX PENNKINETIC ER 10-8 MG/5ML ORAL SUSPENSION EXTENDED RELEASE HYDROCOD POLST-CHLORPHEN POLST Inactive PROMETHAZINE HCL 25 MG ORAL TABLET 1 four times a day as needed for nausea/ vomiting PROMETHAZINE HCL 25 MG ORAL TABLET 104510 PROMETHAZINE HCL Inactive PREDNISONE 20 MG ORAL TABLET 1 tablet twice daily for 2 days, then 1 tablet once daily for 2 days PREDNISONE 20 MG ORAL TABLET 306343 PREDNISONE Inactive WARFARIN SODIUM 4 MG ORAL TABLET 1 tab every evening WARFARIN SODIUM 4 MG ORAL TABLET 345672 WARFARIN SODIUM Inactive LOMOTIL 2.5-0.025 MG ORAL TABLET 1 to 2 four times a day as needed for diarrhea LOMOTIL 2.5-0.025 MG ORAL TABLET 1102967 DIPHENOXYLATE-ATROPINE Inactive IBUPROFEN 800 MG ORAL TABLET 1 tab every 8 hours as needed 07/12 IBUPROFEN 800 MG ORAL TABLET 588559 IBUPROFEN Inactive PREDNISONE 20 MG ORAL TABLET 2 tablets today, then 1 tablet days 2 through 4 PREDNISONE 20 MG ORAL TABLET 205162 PREDNISONE Inactive GABAPENTIN 300 MG ORAL CAPSULE 1 po q hs for nerve pain GABAPENTIN 300 MG ORAL CAPSULE 769284 GABAPENTIN Inactive TRAMADOL HCL 50 MG ORAL TABLET 1 po tid with ES Tylenol TRAMADOL HCL 50 MG ORAL TABLET 510490 TRAMADOL HCL Inactive PROAIR HFA 108 (90 BASE) MCG/ACT INHALATION AEROSOL SOLUTION 1-2 puffs four times a day as needed PROAIR HFA 108 (90 BASE) MCG/ACT INHALATION AEROSOL SOLUTION ALBUTEROL SULFATE Inactive PREDNISONE 20 MG ORAL TABLET two tabs by mouth today, then one tab by mouth days two and three PREDNISONE 20 MG ORAL TABLET 889051 PREDNISONE Inactive AZITHROMYCIN 250 MG ORAL TABLET 2 po qd x 1 day, then 1 po qd x 4 days 10/16 AZITHROMYCIN 250 MG ORAL TABLET 404014 AZITHROMYCIN Inactive AZITHROMYCIN 250 MG ORAL TABLET 2 po qd x 1 day, then 1 po qd x 4 days 10/21 AZITHROMYCIN 250 MG ORAL TABLET 908049 AZITHROMYCIN Inactive NYSTATIN-TRIAMCINOLONE 924828-9.1 UNIT/GM-% EXTERNAL CREAM Apply to area BID NYSTATIN-TRIAMCINOLONE 198462-1.1 UNIT/GM-% EXTERNAL CREAM 8098878 NYSTATIN-TRIAMCINOLONE Inactive AZITHROMYCIN 250 MG ORAL TABLET 2 po qd x 1 day, then 1 po qd x 4 days 05/07 AZITHROMYCIN 250 MG ORAL TABLET 011084 AZITHROMYCIN Inactive AZITHROMYCIN 250 MG ORAL TABLET 2 po qd x 1 day, then 1 po qd x 4 days 10/13 AZITHROMYCIN 250 MG ORAL TABLET 570099 AZITHROMYCIN Inactive AZITHROMYCIN 250 MG ORAL TABLET 2 po qd x 1 day, then 1 po qd x 4 days 07/12 AZITHROMYCIN 250 MG ORAL TABLET 800868 AZITHROMYCIN Inactive PREDNISONE 20 MG ORAL TABLET 2 tabs daily for 3 days, 1 tab daily for 3 days, 1/2 tab daily for 2 days PREDNISONE 20 MG ORAL TABLET 981374 PREDNISONE Inactive DOXYCYCLINE HYCLATE 100 MG ORAL CAPSULE 1 cap by mouth BID x10 days DOXYCYCLINE HYCLATE 100 MG ORAL CAPSULE 9760901 DOXYCYCLINE HYCLATE Inactive ZITHROMAX 250 MG ORAL TABLET Take two (2 ) tablets day one, then one (1) tablet a day for four (4) more days ZITHROMAX 250 MG ORAL TABLET 282330 AZITHROMYCIN Inactive Advance Directives Directive Description Start [...] Panel - Chemistry sodium, serum 141 mmol/L 461-041 9119/01/24 potassium, serum 4.3 mmol/L 3.5-5.2 chloride, serum [...] % 11.0-15.0 platelet count 172 THOUSAND/UL 10*3/mm3 055-896 7028/04/12 mean platelet volume 8.6 fL 7.5-12.5 Lab Report: Prothrombin Time - Coagulation prothrombin time (patient) 27.8 SECS s 11.1-13.4 international normalized ratio (INR) 4.2 1.0-3.5 Lab Report: Prothrombin Time Hemochron - Coagulation prothrombin time (patient) 33.0 SECS s 18.9-24.9 Encounters Code Encounter Date Provider Facility CPT-93208 Level 3 Est. Patient 12:33:59 CERTIFIED ORTHOTIST/PEDORTHIST Piotr Daley [facility] CPT-90360 Level 3 Est. Patient 15:56:17 CERTIFIED ORTHOTIST/PEDORTHIST Piotr Wilson [facility] CPT-41224 Level 3 Est. Patient 10:34:54 CERTIFIED ORTHOTIST/PEDORTHIST Piotr Daley [facility] CPT-53207 Level 3 Est. Patient 17:10:19 CDJose Harris APRN [facility] CPT-46760 Level 3 Est. Patient 10:48:17 CERTIFIED ORTHOTIST/PEDORTHIST Matthew Rangel MD [facility] CPT-10427 Level 4 Est. Patient 17:15:07 CERTIFIED ORTHOTIST/PEDORTHIST Piotr Daley [facility] CPT-22751 Level 3 Est. Patient 12:46:13 CERTIFIED ORTHOTIST/PEDORTHIST Piotr Daley [facility] CPT-95378 Level 3 Est. Patient 15:14:31 CERTIFIED ORTHOTIST/PEDORTHIST Piotr Daley [facility] CPT-63791 Level 3 Est. Patient 09:20:13 CERTIFIED ORTHOTIST/PEDORTHIST Piotr Daley [facility] CPT-67626 Level 3 Est. Patient 09:49:40 CDT Piotr Daley [facility] CPT-61028 Level 3 Est. Patient 16:28:11 CDT Piotr Daley [facility] CPT-33945 Level 3 Est. Patient 12:41:58 CERTIFIED ORTHOTIST/PEDORTHIST Piotr Daley [facility] CPT-44994 Level 3 Est. Patient 09:21:24 CDT Piotr Daley [facility] CPT-71561 Level 3 Est. Patient 09:21:11 CDT Piotr Daley [facility] CPT-10620 Level 3 Est. Patient 11:16:29 CERTIFIED ORTHOTIST/PEDORTHIST Piotr Daley [facility] CPT-54551 Level 3 Est. Patient 18:40:19 CERTIFIED ORTHOTIST/PEDORTHIST Piotr Daley [facility] CPT-02195 Level 3 Est. Patient 19:30:50 CDT Piotr Daley [facility] CPT-28480 Level 3 Est. Patient 22:06:44 CDT Katrina Rinaldi MD [facility] CPT-23693 Level 3 Est. Patient 14:20:00 CDT Piotr Daley [facility] CPT-39513 Level 3 Est. Patient 14:15:22 CERTIFIED ORTHOTIST/PEDORTHIST Piotr Daley [facility] CPT-60986 Level 3 Est. Patient 20:19:57 CERTIFIED ORTHOTIST/PEDORTHIST Piotr Wilson Edi [facility] CPT-12720 Level 3 Est. Patient 16:44:32 CDT Piotr Katie Edi [facility] CPT-85049 Level 3 Est. Patient 08:48:46 CERTIFIED ORTHOTIST/PEDORTHIST Piotr Katie Edi [facility] CPT-50026 Level 3 Est. Patient 21:01:21 CDT Piotr Katie Edi [facility] Procedures Code Procedure Name Date Entry Date Standard Description CPT-79494 Chest, 2 views 12:55:58 CERTIFIED ORTHOTIST/PEDORTHIST CPT-G0439 Subsequent Annual Wellness Exam 10:34:52 CERTIFIED ORTHOTIST/PEDORTHIST CPT-97792 BMP - LAB USE ONLY 17:19:11 CERTIFIED ORTHOTIST/PEDORTHIST CPT-29019 PT/INR - LAB USE ONLY 17:19:10 CERTIFIED ORTHOTIST/PEDORTHIST CPT-34658 Venipuncture Draw Fee 17:19:10 CERTIFIED ORTHOTIST/PEDORTHIST CPT-95571 PT/INR - LAB USE ONLY 08:12:25 CERTIFIED ORTHOTIST/PEDORTHIST CPT-98350 Venipuncture Draw Fee 08:12:24 CERTIFIED ORTHOTIST/PEDORTHIST CPT-10204 Venipuncture Draw Fee 11:31:07 [facility] CPT-23314 TPSA - LAB USE ONLY 11:31:07 [facility] CPT-08211 PT/INR - LAB USE ONLY 11:31:07 [facility] CPT-G0439 Subsequent Annual Wellness Exam 09:59:29 [facility] CPT-61154 Creatinine - LAB USE ONLY 14:37:55 [facility] CPT-52307 PT/INR - LAB USE ONLY 14:37:55 [facility] CPT-17091 Venipuncture Draw Fee 14:37:55 [facility] CPT-38617 LS spine comp w obliques - XRAY USE ONLY 12:59:25 CERTIFIED ORTHOTIST/PEDORTHIST CPT-98878 PT/INR - LAB USE ONLY 13:49:20 CDT CPT-36073 Venipuncture Draw Fee 13:49:19 CDT CPT-31319 PT/INR - LAB USE ONLY 15:48:49 CDT CPT-44340 Venipuncture Draw Fee 15:48:49 CDT CPT-10937 Venipuncture Draw Fee 11:31:59 CDT CPT-98111 PT/INR - LAB USE ONLY 11:31:59 CDT CPT-88583 Venipuncture Draw Fee 13:29:15 CDT CPT-89874 Thoracolumbar AP/Lat 15:19:19 CERTIFIED ORTHOTIST/PEDORTHIST CPT-G0438 Initial Annual Wellness Exam 12:18:54 CERTIFIED ORTHOTIST/PEDORTHIST CPT-97028 Knee 3V 09:57:38 CDT CPT-OV Office Visit 15:45:01 CERTIFIED ORTHOTIST/PEDORTHIST CPT-43620 Abd compl w upright 17:10:25 CDT
--- OUTSIDE RECORDS SUMMARY | 2018-07-18 10:50 | XMS REPORT | Clinical Summary ---
Author Author Admin, [employer] Organization [employer] Address Unknown Phone Unavailable Allergies, Adverse Reactions, [...] neoplasm of prostate V10.46 Active Alina Meyers EYEGLASS MAKER Personal history of malignant neoplasm of prostate Coronary artery disease 414.00 Active Alina Meyers APRN Coronary atherosclerosis of unspecified type of vessel, [place] or graft Back pain, thoracic region, left [...] Knee pain, left ICD-719.46 Inactive Sirisha Chen CULINARY INSTRUCTOR Actinic keratoses ICD-702.0 Inactive Sirisha Chen CULINARY INSTRUCTOR Back pain, thoracic region, left ICD-724.1 Inactive Piotr Daley DO Thoracic back pain ICD-724.5 Inactive Sirisha Chen CULINARY INSTRUCTOR Back pain lumbar ICD-724.2 Inactive Sirisha Chen CULINARY INSTRUCTOR Insect bite ICD-919.4 Inactive Sirisha Chen CULINARY INSTRUCTOR Pruritus ICD-698.9 Inactive Sirisha Chen CULINARY INSTRUCTOR 04/09 Bronchitis-Acute ICD-466.0 Inactive Sirisha Chen CULINARY INSTRUCTOR Dyspnea ICD-786.09 Inactive Sirisha Chen CULINARY INSTRUCTOR 05/09 Medication List Medication Instructions Start Date Stop Date Generic Name NDC Status Provider Patient Instruction WARFARIN SODIUM 4 MG ORAL TABLET 1 tablet by mouth daily except 2mg on Saturday and Saturday WARFARIN SODIUM 24219345947 Active Sirisha Chen CULINARY INSTRUCTOR Active MELOXICAM 15 MG ORAL TABLET 1 po q day for pain with food MELOXICAM 68731012484 Active Piotr Daley DO Active PREDNISONE 10 MG ORAL TABLET 1 tablet by mouth daily PREDNISONE 48122404674 No Longer Active Emelyn Norris Active TESSALON PERLES 100 MG ORAL CAPSULE 1-2 tablet by mouth 3 times daily 04/16 BENZONATATE 11517452046 No Longer Active Emelyn Norris Active PREDNISONE 20 MG ORAL TABLET two tabs by mouth today, then one tab by mouth days two and three PREDNISONE 42918343491 No Longer Active Piotr Daley DO Active CYCLOBENZAPRINE HCL 10 MG ORAL TABLET 1 tablet by mouth three times daily as needed for muscle spasm/pain CYCLOBENZAPRINE HCL 80528184801 Active Sirisha Chen LPN Active ZITHROMAX 250 MG ORAL TABLET Take two (2 ) tablets day one, then one (1) tablet a day for four (4) more days AZITHROMYCIN 05490118251 No Longer Active Piotr Daley DO Active PROAIR HFA 108 (90 BASE) MCG/ACT INHALATION AEROSOL SOLUTION 1-2 puffs four times a day as needed ALBUTEROL SULFATE 29961735150 No Longer Active Emelyn Norris Active DOXYCYCLINE HYCLATE 100 MG ORAL CAPSULE 1 cap by mouth BID x10 days DOXYCYCLINE HYCLATE 92869388780 No Longer Active Nella Harris APRN Active PREDNISONE 20 MG ORAL TABLET 2 tabs daily for 3 days, 1 tab daily for 3 days, 1/2 tab daily for 2 days PREDNISONE 55498722696 No Longer Active Matthew Rangel MD Active TRAMADOL HCL 50 MG ORAL TABLET 1 po tid with ES Tylenol TRAMADOL HCL 82004420984 No Longer Active Matthew Rangel MD Active GABAPENTIN 300 MG ORAL CAPSULE 1 po q hs for nerve pain GABAPENTIN 70528396602 No Longer Active Matthew Rangel MD Active PREDNISONE 20 MG ORAL TABLET 2 tablets today, then 1 tablet days 2 through 4 PREDNISONE 06850229771 No Longer Active Piotr Daley DO Active AZITHROMYCIN 250 MG ORAL TABLET 2 po qd x 1 day, then 1 po qd x 4 days 07/12 AZITHROMYCIN 77793921246 No Longer Active Piotr Daley DO Active IBUPROFEN 800 MG ORAL TABLET 1 tab every 8 hours as needed 07/12 IBUPROFEN 14889735967 No Longer Active Piotr Daley DO Active LOMOTIL 2.5-0.025 MG ORAL TABLET 1 to 2 four times a day as needed for diarrhea DIPHENOXYLATE-ATROPINE 03836907740 No Longer Active Piotr Daley DO Active WARFARIN SODIUM 4 MG ORAL TABLET 1 tab every evening WARFARIN SODIUM 32477015929 No Longer Active Piotr Daley DO Active PREDNISONE 20 MG ORAL TABLET 1 tablet twice daily for 2 days, then 1 tablet once daily for 2 days PREDNISONE 77463812063 No Longer Active Piotr Daley DO Active PROMETHAZINE HCL 25 MG ORAL TABLET 1 four times a day as needed for nausea/ vomiting PROMETHAZINE HCL 51470353375 No Longer Active Piotr Daley DO Active TUSSIONEX PENNKINETIC ER 10-8 MG/5ML ORAL SUSPENSION EXTENDED RELEASE 5ml po q12hr PRN Cough HYDROCOD POLST-CHLORPHEN POLST 18047075091 No Longer Active Piotr Daley DO Active AZITHROMYCIN 250 MG ORAL TABLET 2 po qd x 1 day, then 1 po qd x 4 days 10/13 AZITHROMYCIN 31874397933 No Longer Active Piotr Daley DO Active AZITHROMYCIN 250 MG ORAL TABLET 2 po qd x 1 day, then 1 po qd x 4 days 05/07 AZITHROMYCIN 40425823950 No Longer Active Piotr Daley DO Active LISINOPRIL-HYDROCHLOROTHIAZIDE 10-12.5 MG ORAL TABLET 1 tab by mouth daily LISINOPRIL-HYDROCHLOROTHIAZIDE 39107808894 Active Piotr Daley DO Active LISINOPRIL 10 MG ORAL TABLET 1/2-1 tab po every other day LISINOPRIL 09020444108 No Longer Active Piotr Daley DO Active VENTOLIN HFA 108 (90 Base) MCG/ACT INHALATION AEROSOL SOLUTION 2 puffs four times a day PRN cough ALBUTEROL SULFATE 29605757130 No Longer Active Piotr Daley DO Active NYSTATIN-TRIAMCINOLONE 062718-4.1 UNIT/GM-% EXTERNAL CREAM Apply to area BID NYSTATIN-TRIAMCINOLONE 11251040889 No Longer Active Alena Chavira CULINARY INSTRUCTOR Active PHISOHEX 3 % LIQD Use Directed HEXACHLOROPHENE 28740526529 No Longer Active Sandra [place] Active AZITHROMYCIN 250 MG ORAL TABLET 2 po qd x 1 day, then 1 po qd x 4 days 10/21 AZITHROMYCIN 30013755936 No Longer Active Katrina Rinaldi MD PhD Active AZITHROMYCIN 250 MG ORAL TABLET 2 po qd x 1 day, then 1 po qd x 4 days 10/16 AZITHROMYCIN 34400281356 No Longer Active Piotr Daley DO Active AZITHROMYCIN 500 MG INTRAVENOUS SOLUTION RECONSTITUTED 1 po q day AZITHROMYCIN 87474689870 No Longer Active Piotr Daley DO Active NYSTATIN-TRIAMCINOLONE 500098-7.1 UNIT/GM-% EXTERNAL CREAM apply bid NYSTATIN-TRIAMCINOLONE 31953919836 No Longer Active Piotr Daley DO Active IBUPROFEN 800 MG ORAL TABLET 1 po q 8 hours prn pain sparinly IBUPROFEN 24424005442 No Longer Active Piotr Daley DO Active VITAMIN D3 5000 UNIT ORAL CAPSULE 1 po daily CHOLECALCIFEROL 48593250775 Active Piotr Daley DO Active IBUPROFEN 800 MG ORAL TABLET 1 po q 8 hours prn pain sparinly IBUPROFEN 800 MG ORAL TABLET 596624 IBUPROFEN Inactive NYSTATIN-TRIAMCINOLONE 471972-1.1 UNIT/GM-% EXTERNAL CREAM apply bid NYSTATIN-TRIAMCINOLONE 503956-3.1 UNIT/GM-% EXTERNAL CREAM 3980135 NYSTATIN-TRIAMCINOLONE Inactive AZITHROMYCIN 500 MG INTRAVENOUS SOLUTION RECONSTITUTED 1 po q day AZITHROMYCIN 500 MG INTRAVENOUS SOLUTION RECONSTITUTED 14288616354 AZITHROMYCIN Inactive VENTOLIN HFA 108 (90 Base) MCG/ACT INHALATION AEROSOL SOLUTION 2 puffs four times a day PRN cough VENTOLIN HFA 108 (90 Base) MCG/ ACT INHALATION AEROSOL SOLUTION ALBUTEROL SULFATE Inactive LISINOPRIL 10 MG ORAL TABLET 1/2-1 tab po every other day LISINOPRIL 10 MG ORAL TABLET 411474 LISINOPRIL Inactive TUSSIONEX PENNKINETIC ER 10-8 MG/5ML ORAL SUSPENSION EXTENDED RELEASE 5ml po q12hr PRN Cough TUSSIONEX PENNKINETIC ER 10-8 MG/5ML ORAL SUSPENSION EXTENDED RELEASE HYDROCOD POLST-CHLORPHEN POLST Inactive PROMETHAZINE HCL 25 MG ORAL TABLET 1 four times a day as needed for nausea/ vomiting PROMETHAZINE HCL 25 MG ORAL TABLET 977126 PROMETHAZINE HCL Inactive PREDNISONE 20 MG ORAL TABLET 1 tablet twice daily for 2 days, then 1 tablet once daily for 2 days PREDNISONE 20 MG ORAL TABLET 480383 PREDNISONE Inactive WARFARIN SODIUM 4 MG ORAL TABLET 1 tab every evening WARFARIN SODIUM 4 MG ORAL TABLET 079818 WARFARIN SODIUM Inactive LOMOTIL 2.5-0.025 MG ORAL TABLET 1 to 2 four times a day as needed for diarrhea LOMOTIL 2.5-0.025 MG ORAL TABLET 1296092 DIPHENOXYLATE-ATROPINE Inactive IBUPROFEN 800 MG ORAL TABLET 1 tab every 8 hours as needed 07/12 IBUPROFEN 800 MG ORAL TABLET 948195 IBUPROFEN Inactive PREDNISONE 20 MG ORAL TABLET 2 tablets today, then 1 tablet days 2 through 4 PREDNISONE 20 MG ORAL TABLET 995001 PREDNISONE Inactive GABAPENTIN 300 MG ORAL CAPSULE 1 po q hs for nerve pain GABAPENTIN 300 MG ORAL CAPSULE 363027 GABAPENTIN Inactive TRAMADOL HCL 50 MG ORAL TABLET 1 po tid with ES Tylenol TRAMADOL HCL 50 MG ORAL TABLET 458502 TRAMADOL HCL Inactive PROAIR HFA 108 (90 BASE) MCG/ACT INHALATION AEROSOL SOLUTION 1-2 puffs four times a day as needed PROAIR HFA 108 (90 BASE) MCG/ACT INHALATION AEROSOL SOLUTION ALBUTEROL SULFATE Inactive PREDNISONE 20 MG ORAL TABLET two tabs by mouth today, then one tab by mouth days two and three PREDNISONE 20 MG ORAL TABLET 501072 PREDNISONE Inactive TESSALON PERLES 100 MG ORAL CAPSULE 1-2 tablet by mouth 3 times daily 04/16 TESSALON PERLES 100 MG ORAL CAPSULE 050929 BENZONATATE Inactive PREDNISONE 10 MG ORAL TABLET 1 tablet by mouth daily PREDNISONE 10 MG ORAL TABLET 643800 PREDNISONE Inactive AZITHROMYCIN 250 MG ORAL TABLET 2 po qd x 1 day, then 1 po qd x 4 days 10/16 AZITHROMYCIN 250 MG ORAL TABLET 599634 AZITHROMYCIN Inactive AZITHROMYCIN 250 MG ORAL TABLET 2 po qd x 1 day, then 1 po qd x 4 days 10/21 AZITHROMYCIN 250 MG ORAL TABLET 366353 AZITHROMYCIN Inactive NYSTATIN-TRIAMCINOLONE 008827-7.1 UNIT/GM-% EXTERNAL CREAM Apply to area BID NYSTATIN-TRIAMCINOLONE 073913-0.1 UNIT/GM-% EXTERNAL CREAM 9298722 NYSTATIN-TRIAMCINOLONE Inactive AZITHROMYCIN 250 MG ORAL TABLET 2 po qd x 1 day, then 1 po qd x 4 days 05/07 AZITHROMYCIN 250 MG ORAL TABLET 032387 AZITHROMYCIN Inactive AZITHROMYCIN 250 MG ORAL TABLET 2 po qd x 1 day, then 1 po qd x 4 days 10/13 AZITHROMYCIN 250 MG ORAL TABLET 863540 AZITHROMYCIN Inactive AZITHROMYCIN 250 MG ORAL TABLET 2 po qd x 1 day, then 1 po qd x 4 days 07/12 AZITHROMYCIN 250 MG ORAL TABLET 792832 AZITHROMYCIN Inactive PREDNISONE 20 MG ORAL TABLET 2 tabs daily for 3 days, 1 tab daily for 3 days, 1/2 tab daily for 2 days PREDNISONE 20 MG ORAL TABLET 845369 PREDNISONE Inactive DOXYCYCLINE HYCLATE 100 MG ORAL CAPSULE 1 cap by mouth BID x10 days DOXYCYCLINE HYCLATE 100 MG ORAL CAPSULE 1959915 DOXYCYCLINE HYCLATE Inactive ZITHROMAX 250 MG ORAL TABLET Take two (2 ) tablets day one, then one (1) tablet a day for four (4) more days ZITHROMAX 250 MG ORAL TABLET 639114 AZITHROMYCIN Inactive Advance Directives Directive Description Start [...] 18.9-24.9 Encounters Code Encounter Date Provider Facility CPT-91527 Level 3 Est. Patient 15:59:25 AIRPORT OPERATIONS SUPERVISOR Piotr Katie Edi [facility] [address] CPT-68294 Level 3 Est. Patient 12:33:59 AIRPORT OPERATIONS SUPERVISOR Piotr Wilson Edi [facility] [address] CPT-22006 Level 3 Est. Patient 15:56:17 AIRPORT OPERATIONS SUPERVISOR Piotr Katie Edi [facility] [address] CPT-66269 Level 3 Est. Patient 10:34:54 AIRPORT OPERATIONS SUPERVISOR Piotr Daley [facility] [address] CPT-92852 Level 3 Est. Patient 17:10:19 CDT Nella Harris APRN [facility] CPT-87293 Level 3 Est. Patient 10:48:17 AIRPORT OPERATIONS SUPERVISOR Matthew Rangel MD [facility] CPT-99207 Level 4 Est. Patient 17:15:07 AIRPORT OPERATIONS SUPERVISOR Piotr Wilson [facility] CPT-65060 Level 3 Est. Patient 12:46:13 AIRPORT OPERATIONS SUPERVISOR Piotr Daley [facility] [address] CPT-98306 Level 3 Est. Patient 15:14:31 AIRPORT OPERATIONS SUPERVISOR Piotr Daley [facility] CPT-90335 Level 3 Est. Patient 09:20:13 AIRPORT OPERATIONS SUPERVISOR Piotr Daley [facility] CPT-99533 Level 3 Est. Patient 09:49:40 CDT Piotr Wilson [facility] CPT-44302 Level 3 Est. Patient 16:28:11 CDT Piotr Daley [facility] CPT-43719 Level 3 Est. Patient 12:41:58 AIRPORT OPERATIONS SUPERVISOR Piotr Daley [facility] CPT-35495 Level 3 Est. Patient 09:21:24 CDT Piotr Wilson [facility] CPT-22411 Level 3 Est. Patient 09:21:11 CDT Piotr Wilson [facility] CPT-18758 Level 3 Est. Patient 11:16:29 AIRPORT OPERATIONS SUPERVISOR Piotr Daley [facility] CPT-82520 Level 3 Est. Patient 18:40:19 AIRPORT OPERATIONS SUPERVISOR Piotr Daley [facility] CPT-62733 Level 3 Est. Patient 19:30:50 CDT Piotr Daley [facility] CPT-25360 Level 3 Est. Patient 22:06:44 CDT Katrina Rinaldi MD [facility] CPT-28252 Level 3 Est. Patient 14:20:00 CDT Piotr Daley [facility] CPT-13515 Level 3 Est. Patient 14:15:22 AIRPORT OPERATIONS SUPERVISOR Piotr Daley [facility] CPT-53160 Level 3 Est. Patient 20:19:57 AIRPORT OPERATIONS SUPERVISOR Piotr Daley [facility] CPT-34247 Level 3 Est. Patient 16:44:32 CDT Piotr Daley [facility] CPT-13081 Level 3 Est. Patient 08:48:46 AIRPORT OPERATIONS SUPERVISOR Piotr Daley [facility] CPT-96235 Level 3 Est. Patient 21:01:21 CDT Piotr Daley [facility] Procedures Code Procedure Name Date Entry Date Standard Description CPT-44131 Sacroiliac jt < 3V - XRAY USE ONLY 16:45:19 AIRPORT OPERATIONS SUPERVISOR 05/09 CPT-58704 LS spine comp w obliques - XRAY USE ONLY 14:52:26 AIRPORT OPERATIONS SUPERVISOR CPT-46810 Chest, 2 views 12:55:58 AIRPORT OPERATIONS SUPERVISOR CPT-G0439 [facility] Annual Wellness Exam 10:34:52 AIRPORT OPERATIONS SUPERVISOR CPT-62971 BMP - LAB USE ONLY 17:19:11 AIRPORT OPERATIONS SUPERVISOR CPT-35471 PT/INR - LAB USE ONLY 17:19:10 AIRPORT OPERATIONS SUPERVISOR CPT-44417 Venipuncture Draw Fee 17:19:10 AIRPORT OPERATIONS SUPERVISOR CPT-55242 PT/INR - LAB USE ONLY 08:12:25 AIRPORT OPERATIONS SUPERVISOR CPT-22520 Venipuncture Draw Fee 08:12:24 AIRPORT OPERATIONS SUPERVISOR CPT-91472 Venipuncture Draw Fee 11:31:07 AIRPORT OPERATIONS SUPERVISOR CPT-50210 TPSA - LAB USE ONLY 11:31:07 AIRPORT OPERATIONS SUPERVISOR CPT-78964 PT/INR - LAB USE ONLY 11:31:07 AIRPORT OPERATIONS SUPERVISOR CPT-G0439 Subsequent Annual Wellness Exam 09:59:29 AIRPORT OPERATIONS SUPERVISOR CPT-11956 Creatinine - LAB USE ONLY 14:37:55 AIRPORT OPERATIONS SUPERVISOR CPT-14074 PT/INR - LAB USE ONLY 14:37:55 AIRPORT OPERATIONS SUPERVISOR CPT-79476 Venipuncture Draw Fee 14:37:55 AIRPORT OPERATIONS SUPERVISOR CPT-81054 LS spine comp w obliques - XRAY USE ONLY 12:59:25 AIRPORT OPERATIONS SUPERVISOR CPT-47854 PT/INR - LAB USE ONLY 13:49:20 CDT CPT-71938 Venipuncture Draw Fee 13:49:19 CDT CPT-28442 PT/INR - LAB USE ONLY 15:48:49 CDT CPT-38779 Venipuncture Draw Fee 15:48:49 CDT CPT-54564 Venipuncture Draw Fee 11:31:59 CDT CPT-86964 PT/INR - LAB USE ONLY 11:31:59 CDT CPT-27433 Venipuncture Draw Fee 13:29:15 CDT CPT-44673 Thoracolumbar AP/Lat 15:19:19 AIRPORT OPERATIONS SUPERVISOR CPT-G0438 Initial Annual Wellness Exam 12:18:54 AIRPORT OPERATIONS SUPERVISOR CPT-04795 Knee 3V 09:57:38 CDT CPT-OV Office Visit 15:45:01 AIRPORT OPERATIONS SUPERVISOR CPT-99465 Abd compl w upright 17:10:25 CDT
--- OUTSIDE RECORDS SUMMARY | 2018-07-18 10:51 | XMS REPORT | Clinical Summary ---
Author Author Admin, E Organization [employer] Address Unknown Phone Unavailable Allergies, Adverse Reactions, [...] neoplasm of prostate V10.46 Active Alina Meyers SCIENTIFIC SOFTWARE DEVELOPER Personal history of malignant neoplasm of prostate Coronary artery disease 414.00 Active Alina Luigi SCIENTIFIC SOFTWARE DEVELOPER Coronary atherosclerosis of unspecified type of vessel, [place] or graft Back pain, thoracic region, [...] MG TABS 1 tablet daily WARFARIN SODIUM 42435323745 Active Simi Meyers Active TRAMADOL HCL 50 MG TABS 1 po tid with ES Tylenol TRAMADOL HCL 34523435059 Active Piotr Daley DO Active PREDNISONE 20 MG TAB 2 tablets today, then 1 tablet days 2 through 4 PREDNISONE 49847306913 No Longer Active Piotr Daley DO Active AZITHROMYCIN 250 MG TABS 2 po qd x 1 day, then 1 po qd x 4 days AZITHROMYCIN 85784100133 No Longer Active Piotr Daley DO Active IBUPROFEN 800 MG TABS 1 tab every 8 hours as needed IBUPROFEN 84396528080 No Longer Active Piotr Daley DO Active LOMOTIL 2.5-0.025 MG TAB 1 to 2 four times a day as needed for diarrhea 10/13 DIPHENOXYLATE-ATROPINE 72164513601 No Longer Active Piort Daley DO Active WARFARIN SODIUM 4 MG TABS 1 tab every evening WARFARIN SODIUM 89307627442 No Longer Active Piotr Daley DO Active PREDNISONE 20 MG TAB 1 tablet twice daily for 2 days, then 1 tablet once daily for 2 days PREDNISONE 99034874230 No Longer Active Piotr Daley DO Active PROMETHAZINE HCL 25 MG TABS 1 four times a day as needed for nausea/vomiting PROMETHAZINE HCL 39361761216 No Longer Active Piotr Daley DO Active TUSSIONEX PENNKINETIC ER 10-8 MG/5ML LQCR 5ml po q12hr PRN Cough HYDROCOD POLST-CHLORPHEN POLST 90263001666 No Longer Active Piotr Daely DO Active AZITHROMYCIN 250 MG TABS 2 po qd x 1 day, then 1 po qd x 4 days AZITHROMYCIN 60471725204 No Longer Active Piotr Daley DO Active AZITHROMYCIN 250 MG TABS 2 po qd x 1 day, then 1 po qd x 4 days AZITHROMYCIN 40832109727 No Longer Active Piotr Daley DO Active LISINOPRIL-HYDROCHLOROTHIAZIDE 10-12.5 MG TABS 1 tab by mouth daily LISINOPRIL-HYDROCHLOROTHIAZIDE 98927067297 Active Hilary Ma MA Active LISINOPRIL 10 MG TABS 1/2-1 tab po every other day LISINOPRIL 71843474596 No Longer Active Piotr Daley DO Active VENTOLIN HFA 108 (90 BASE) MCG/ACT AERS 2 puffs four times a day PRN cough ALBUTEROL SULFATE 35206674382 No Longer Active Piotr Daley DO Active NYSTATIN-TRIAMCINOLONE 722949-2.1 UNIT/GM-% CREA Apply to area BID NYSTATIN-TRIAMCINOLONE 31077664454 No Longer Active Alena Oswaldum BREWING DIRECTOR Active PHISOHEX 3 % LIQD Use Directed HEXACHLOROPHENE 41964868942 No Longer Active Sandra [place] Active AZITHROMYCIN 250 MG TABS 2 po qd x 1 day, then 1 po qd x 4 days AZITHROMYCIN 41882806587 No Longer Active Katrina Rinaldi MD PhD Active AZITHROMYCIN 250 MG TABS 2 po qd x 1 day, then 1 po qd x 4 days AZITHROMYCIN 62638349193 No Longer Active Piotr Daley DO Active AZITHROMYCIN 500 MG SOLR 1 po q day AZITHROMYCIN 28536528380 No Longer Active Piotr Daley DO Active NYSTATIN-TRIAMCINOLONE 037200-3.1 UNIT/GM-% CREA apply bid 08/19 NYSTATIN-TRIAMCINOLONE 99728174053 No Longer Active Piotr Daley DO Active IBUPROFEN 800 MG TABS 1 po q 8 hours prn pain sparinly IBUPROFEN 00885329167 No Longer Active Piotr Daley DO Active VITAMIN D3 5000 UNIT CAPS 1 po daily CHOLECALCIFEROL 39038144619 Active Piotr Daley DO Active IBUPROFEN 800 MG TABS 1 po q 8 hours prn pain sparinly IBUPROFEN 800 MG TABS 428339 IBUPROFEN Inactive NYSTATIN-TRIAMCINOLONE 339455-2.1 UNIT/GM-% CREA apply bid 08/19 NYSTATIN-TRIAMCINOLONE 676711-2.1 UNIT/GM-% CREA 0530710 NYSTATIN- TRIAMCINOLONE Inactive AZITHROMYCIN 500 MG SOLR 1 po q day AZITHROMYCIN 500 MG SOLR 28812603872 AZITHROMYCIN Inactive VENTOLIN HFA 108 (90 BASE) MCG/ACT AERS 2 puffs four times a day PRN cough VENTOLIN HFA 108 (90 BASE) MCG/ACT AERS ALBUTEROL SULFATE Inactive LISINOPRIL 10 MG TABS 1/2-1 tab po every other day LISINOPRIL 10 MG TABS 488132 LISINOPRIL Inactive TUSSIONEX PENNKINETIC ER 10-8 MG/5ML LQCR 5ml po q12hr PRN Cough TUSSIONEX PENNKINETIC ER 10-8 MG/5ML LQCR HYDROCOD POLST- CHLORPHEN POLST Inactive PROMETHAZINE HCL 25 MG TABS 1 four times a day as needed for nausea/vomiting PROMETHAZINE HCL 25 MG TABS 982057 PROMETHAZINE HCL Inactive PREDNISONE 20 MG TAB 1 tablet twice daily for 2 days, then 1 tablet once daily for 2 days PREDNISONE 20 MG TAB 358215 PREDNISONE Inactive WARFARIN SODIUM 4 MG TABS 1 tab every evening WARFARIN SODIUM 4 MG TABS 072621 WARFARIN SODIUM Inactive LOMOTIL 2.5-0.025 MG TAB 1 to 2 four times a day as needed for diarrhea 10/13 LOMOTIL 2.5-0.025 MG TAB 5348724 DIPHENOXYLATE-ATROPINE Inactive IBUPROFEN 800 MG TABS 1 tab every 8 hours as needed IBUPROFEN 800 MG TABS 361451 IBUPROFEN Inactive PREDNISONE 20 MG TAB 2 tablets today, then 1 tablet days 2 through 4 PREDNISONE 20 MG TAB 613217 PREDNISONE Inactive AZITHROMYCIN 250 MG TABS 2 po qd x 1 day, then 1 po qd x 4 days AZITHROMYCIN 250 MG TABS 8015954 AZITHROMYCIN Inactive AZITHROMYCIN 250 MG TABS 2 po qd x 1 day, then 1 po qd x 4 days AZITHROMYCIN 250 MG TABS 6091995 AZITHROMYCIN Inactive NYSTATIN-TRIAMCINOLONE 543768-9.1 UNIT/GM-% CREA Apply to area BID NYSTATIN-TRIAMCINOLONE 243739-7.1 UNIT/GM-% CREA 6015718 NYSTATIN-TRIAMCINOLONE Inactive AZITHROMYCIN 250 MG TABS 2 po qd x 1 day, then 1 po qd x 4 days AZITHROMYCIN 250 MG TABS 0041524 AZITHROMYCIN Inactive AZITHROMYCIN 250 MG TABS 2 po qd x 1 day, then 1 po qd x 4 days AZITHROMYCIN 250 MG TABS 5886952 AZITHROMYCIN Inactive AZITHROMYCIN 250 MG TABS 2 po qd x 1 day, then 1 po qd x 4 days AZITHROMYCIN 250 MG TABS 3228515 AZITHROMYCIN Inactive Advance Directives Directive Description Start [...] Panel - Chemistry sodium, serum 141 mmol/L 658-332 0015/06/28 carbon dioxide, venous blood 31.0 mmol/L 21.0-32.0 [...] Negative Encounters Code Encounter Date Provider Facility CPT-37518 Level 3 Est. Patient 15:14:31 PIT OPERATOR Piotr Katie Edi [facility] CPT-01877 Level 3 Est. Patient 09:20:13 PIT OPERATOR Piotr Katie Daley [facility] CPT-77929 Level 3 Est. Patient 09:49:40 CDT Piotr Daley [facility] CPT-02796 Level 3 Est. Patient 16:28:11 CDT Piotr Wilson Edi [facility] CPT-09592 Level 3 Est. Patient 12:41:58 PIT OPERATOR Piotr Katie Daley [facility] CPT-93763 Level 3 Est. Patient 09:21:24 CDT Piotr Daley [facility] CPT-07732 Level 3 Est. Patient 09:21:11 CDT Piotr Wilson Edi [facility] CPT-01554 Level 3 Est. Patient 11:16:29 PIT OPERATOR Piotr Wilson Edi [facility] CPT-87355 Level 3 Est. Patient 18:40:19 PIT OPERATOR Piotr Katie Daley [facility] CPT-16690 Level 3 Est. Patient 19:30:50 CDT Piotr Katie Daley [facility] CPT-32254 Level 3 Est. Patient 22:06:44 CDT Katrina Rinaldi MD PhD [facility] CPT-91502 Level 3 Est. Patient 14:20:00 CDT Piotr Daley [facility] CPT-34860 Level 3 Est. Patient 14:15:22 PIT OPERATOR Piotr Daley [facility] CPT-90484 Level 3 Est. Patient 20:19:57 PIT OPERATOR Piotr Daley [facility] CPT-50662 Level 3 Est. Patient 16:44:32 CDT Piotr Wilson [facility] CPT-38617 Level 3 Est. Patient 08:48:46 PIT OPERATOR Piotr W Edi DO [facility] CPT-79947 Level 3 Est. Patient 21:01:21 CDT Piotr Daley [facility] Procedures Code Procedure Name Date Entry Date Standard Description CPT-70603 PT/INR - LAB USE ONLY 13:49:20 CDT CPT-48442 Venipuncture Draw Fee 13:49:19 CDT CPT-98193 PT/INR - LAB USE ONLY 15:48:49 CDT CPT-46453 Venipuncture Draw Fee 15:48:49 CDT CPT-80878 Venipuncture Draw Fee 11:31:59 CDT CPT-43843 PT/INR - LAB USE ONLY 11:31:59 CDT CPT-63500 Venipuncture Draw Fee 13:29:15 CDT CPT-37546 Thoracolumbar AP/Lat 15:19:19 PIT OPERATOR CPT-G0438 Initial Annual Wellness Exam 12:18:54 PIT OPERATOR CPT-71637 Knee 3V 09:57:38 CDT CPT-OV Office Visit 15:45:01 PIT OPERATOR CPT-46334 Abd compl w upright 17:10:25 CDT
--- OUTSIDE RECORDS SUMMARY | 2018-07-18 10:51 | XMS REPORT | Clinical Summary ---
Author Author Admin, E Organization [employer] Address Unknown Phone Unavailable Allergies, Adverse Reactions, [...] neoplasm of prostate V10.46 Active Alina Meyers MATHEMATICS PROFESSOR Personal history of malignant neoplasm of prostate Coronary artery disease 414.00 Active Alina Luigi MATHEMATICS PROFESSOR Coronary atherosclerosis of unspecified type of vessel, [place] or graft Back pain, thoracic region, [...] MG TABS 1 tablet daily WARFARIN SODIUM 77103421773 Active Emelyn Goode RPT,RMA Active TRAMADOL HCL 50 MG TABS 1 po tid with ES Tylenol TRAMADOL HCL 59357563402 Active Piotr Daley DO Active PREDNISONE 20 MG TAB 2 tablets today, then 1 tablet days 2 through 4 PREDNISONE 94542103345 No Longer Active Piotr Daley DO Active AZITHROMYCIN 250 MG TABS 2 po qd x 1 day, then 1 po qd x 4 days AZITHROMYCIN 57212416249 No Longer Active Piotr Daley DO Active IBUPROFEN 800 MG TABS 1 tab every 8 hours as needed IBUPROFEN 08909702970 No Longer Active Piotr Daley DO Active LOMOTIL 2.5-0.025 MG TAB 1 to 2 four times a day as needed for diarrhea 10/13 DIPHENOXYLATE-ATROPINE 62315372213 No Longer Active Piotr Daley DO Active WARFARIN SODIUM 4 MG TABS 1 tab every evening WARFARIN SODIUM 56458182276 No Longer Active Piotr Daley DO Active PREDNISONE 20 MG TAB 1 tablet twice daily for 2 days, then 1 tablet once daily for 2 days PREDNISONE 82446175875 No Longer Active Piotr Daley DO Active PROMETHAZINE HCL 25 MG TABS 1 four times a day as needed for nausea/vomiting PROMETHAZINE HCL 37070622124 No Longer Active Piotr Daley DO Active TUSSIONEX PENNKINETIC ER 10-8 MG/5ML LQCR 5ml po q12hr PRN Cough HYDROCOD POLST-CHLORPHEN POLST 84000468345 No Longer Active Piotr W Edi DO Active AZITHROMYCIN 250 MG TABS 2 po qd x 1 day, then 1 po qd x 4 days AZITHROMYCIN 61543427707 No Longer Active Piotr Daley DO Active AZITHROMYCIN 250 MG TABS 2 po qd x 1 day, then 1 po qd x 4 days AZITHROMYCIN 24706793275 No Longer Active Piotr Daley DO Active LISINOPRIL-HYDROCHLOROTHIAZIDE 10-12.5 MG TABS 1 tab by mouth daily LISINOPRIL-HYDROCHLOROTHIAZIDE 09636861566 Active Hilary Ma MA Active LISINOPRIL 10 MG TABS 1/2-1 tab po every other day LISINOPRIL 57144033794 No Longer Active Piotr Daley DO Active VENTOLIN HFA 108 (90 BASE) MCG/ACT AERS 2 puffs four times a day PRN cough ALBUTEROL SULFATE 52502803334 No Longer Active Piotr Daley DO Active NYSTATIN-TRIAMCINOLONE 637386-7.1 UNIT/GM-% CREA Apply to area BID NYSTATIN-TRIAMCINOLONE 20152551463 No Longer Active Alena Oswaldum RETAIL BANKER Active PHISOHEX 3 % LIQD Use Directed HEXACHLOROPHENE 28386778867 No Longer Active Sandra Sears Active AZITHROMYCIN 250 MG TABS 2 po qd x 1 day, then 1 po qd x 4 days AZITHROMYCIN 67112671629 No Longer Active Katrina Rinaldi MD PhD Active AZITHROMYCIN 250 MG TABS 2 po qd x 1 day, then 1 po qd x 4 days AZITHROMYCIN 75982364286 No Longer Active Piotr Daley DO Active AZITHROMYCIN 500 MG SOLR 1 po q day AZITHROMYCIN 28597528392 No Longer Active Piotr Daley DO Active NYSTATIN-TRIAMCINOLONE 358969-9.1 UNIT/GM-% CREA apply bid 08/19 NYSTATIN-TRIAMCINOLONE 79041228361 No Longer Active Piotr Daley DO Active IBUPROFEN 800 MG TABS 1 po q 8 hours prn pain sparinly IBUPROFEN 03376031494 No Longer Active Piotr Daley DO Active VITAMIN D3 5000 UNIT CAPS 1 po daily CHOLECALCIFEROL 35910428805 Active Piotr Daley DO Active IBUPROFEN 800 MG TABS 1 po q 8 hours prn pain sparinly IBUPROFEN 800 MG TABS 766384 IBUPROFEN Inactive NYSTATIN-TRIAMCINOLONE 053984-5.1 UNIT/GM-% CREA apply bid 08/19 NYSTATIN-TRIAMCINOLONE 894646-9.1 UNIT/GM-% CREA 7493254 NYSTATIN- TRIAMCINOLONE Inactive AZITHROMYCIN 500 MG SOLR 1 po q day AZITHROMYCIN 500 MG SOLR 00479009660 AZITHROMYCIN Inactive VENTOLIN HFA 108 (90 BASE) MCG/ACT AERS 2 puffs four times a day PRN cough VENTOLIN HFA 108 (90 BASE) MCG/ACT AERS ALBUTEROL SULFATE Inactive LISINOPRIL 10 MG TABS 1/2-1 tab po every other day LISINOPRIL 10 MG TABS 450270 LISINOPRIL Inactive TUSSIONEX PENNKINETIC ER 10-8 MG/5ML LQCR 5ml po q12hr PRN Cough TUSSIONEX PENNKINETIC ER 10-8 MG/5ML LQCR HYDROCOD POLST- CHLORPHEN POLST Inactive PROMETHAZINE HCL 25 MG TABS 1 four times a day as needed for nausea/vomiting PROMETHAZINE HCL 25 MG TABS 991718 PROMETHAZINE HCL Inactive PREDNISONE 20 MG TAB 1 tablet twice daily for 2 days, then 1 tablet once daily for 2 days PREDNISONE 20 MG TAB 998838 PREDNISONE Inactive WARFARIN SODIUM 4 MG TABS 1 tab every evening WARFARIN SODIUM 4 MG TABS 758662 WARFARIN SODIUM Inactive LOMOTIL 2.5-0.025 MG TAB 1 to 2 four times a day as needed for diarrhea 10/13 LOMOTIL 2.5-0.025 MG TAB 9456307 DIPHENOXYLATE-ATROPINE Inactive IBUPROFEN 800 MG TABS 1 tab every 8 hours as needed IBUPROFEN 800 MG TABS 174086 IBUPROFEN Inactive PREDNISONE 20 MG TAB 2 tablets today, then 1 tablet days 2 through 4 PREDNISONE 20 MG TAB 297095 PREDNISONE Inactive AZITHROMYCIN 250 MG TABS 2 po qd x 1 day, then 1 po qd x 4 days AZITHROMYCIN 250 MG TABS 0212344 AZITHROMYCIN Inactive AZITHROMYCIN 250 MG TABS 2 po qd x 1 day, then 1 po qd x 4 days AZITHROMYCIN 250 MG TABS 9258746 AZITHROMYCIN Inactive NYSTATIN-TRIAMCINOLONE 049580-7.1 UNIT/GM-% CREA Apply to area BID NYSTATIN-TRIAMCINOLONE 462077-9.1 UNIT/GM-% CREA 9546010 NYSTATIN-TRIAMCINOLONE Inactive AZITHROMYCIN 250 MG TABS 2 po qd x 1 day, then 1 po qd x 4 days AZITHROMYCIN 250 MG TABS 2229888 AZITHROMYCIN Inactive AZITHROMYCIN 250 MG TABS 2 po qd x 1 day, then 1 po qd x 4 days AZITHROMYCIN 250 MG TABS 0506993 AZITHROMYCIN Inactive AZITHROMYCIN 250 MG TABS 2 po qd x 1 day, then 1 po qd x 4 days AZITHROMYCIN 250 MG TABS 9836279 AZITHROMYCIN Inactive Advance Directives Directive Description Start [...] Panel - Chemistry sodium, serum 141 mmol/L 967-524 5631/06/28 carbon dioxide, venous blood 31.0 mmol/L 21.0-32.0 [...] 5.0-8.5 Encounters Code Encounter Date Provider Facility CPT-14498 Level 3 Est. Patient 15:14:31 MINI LAB OPERATOR Piotr Daley DO [facility] CPT-52299 Level 3 Est. Patient 09:20:13 MINI LAB OPERATOR Piotr Daley [facility] CPT-35865 Level 3 Est. Patient 09:49:40 CDT Piotr Daley [facility] CPT-86680 Level 3 Est. Patient 16:28:11 CDT Piotr Daley [facility] CPT-08112 Level 3 Est. Patient 12:41:58 MINI LAB OPERATOR Piotr Daley [facility] CPT-24465 Level 3 Est. Patient 09:21:24 CDT Piotr Daley [facility] CPT-10548 Level 3 Est. Patient 09:21:11 CDT Piotr Daley [facility] CPT-07802 Level 3 Est. Patient 11:16:29 MINI LAB OPERATOR Piotr Daley [facility] CPT-73402 Level 3 Est. Patient 18:40:19 MINI LAB OPERATOR Piotr Daley [facility] CPT-31045 Level 3 Est. Patient 19:30:50 CDT Piotr Daley [facility] CPT-97056 Level 3 Est. Patient 22:06:44 CDT Katrina Rinaldi MD [facility] CPT-63762 Level 3 Est. Patient 14:20:00 CDT Piotr Daley [facility] CPT-65899 Level 3 Est. Patient 14:15:22 MINI LAB OPERATOR Piotr Daley [facility] CPT-02694 Level 3 Est. Patient 20:19:57 MINI LAB OPERATOR Piotr Daley [facility] CPT-69466 Level 3 Est. Patient 16:44:32 CDT Piotr Daley [facility] CPT-86908 Level 3 Est. Patient 08:48:46 MINI LAB OPERATOR Piotr Daley [facility] CPT-33612 Level 3 Est. Patient 21:01:21 CDT Piotr Daley [facility] Procedures Code Procedure Name Date Entry Date Standard Description CPT-73030 Venipuncture Draw Fee 13:29:15 CDT CPT-16738 Thoracolumbar AP/Lat 15:19:19 MINI LAB OPERATOR CPT-G0438 Initial Annual Wellness Exam 12:18:54 MINI LAB OPERATOR CPT-01319 Knee 3V 09:57:38 CDT CPT-OV Office Visit 15:45:01 MINI LAB OPERATOR CPT-58056 Abd compl w upright 17:10:25 CDT
--- OUTSIDE RECORDS SUMMARY | 2018-07-18 10:52 | XMS REPORT | Clinical Summary ---
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 TAPE MACHINE OPERATOR Personal history of malignant neoplasm of prostate Coronary artery disease 414.00 Active Alina Luigi TIE TAPE MACHINE OPERATOR Coronary atherosclerosis of unspecified type of vessel, [place] or graft Back pain, thoracic region, left [...] MG TABS 1 tablet daily WARFARIN SODIUM 22432976184 Active Emelyn Goode RPT,RMA Active TRAMADOL HCL 50 MG TABS 1 po tid with ES Tylenol TRAMADOL HCL 34780043267 Active Piotr Daley DO Active PREDNISONE 20 MG TAB 2 tablets today, then 1 tablet days 2 through 4 PREDNISONE 67678125709 No Longer Active Piotr Daley DO Active AZITHROMYCIN 250 MG TABS 2 po qd x 1 day, then 1 po qd x 4 days AZITHROMYCIN 66652309989 No Longer Active Piotr Daley DO Active IBUPROFEN 800 MG TABS 1 tab every 8 hours as needed IBUPROFEN 75022656891 No Longer Active Piotr Daley DO Active LOMOTIL 2.5-0.025 MG TAB 1 to 2 four times a day as needed for diarrhea 10/13 DIPHENOXYLATE-ATROPINE 69727380502 No Longer Active Piotr Daley DO Active WARFARIN SODIUM 4 MG TABS 1 tab every evening WARFARIN SODIUM 05720943600 No Longer Active Piotr Daley DO Active PREDNISONE 20 MG TAB 1 tablet twice daily for 2 days, then 1 tablet once daily for 2 days PREDNISONE 96943453224 No Longer Active Piotr Daley DO Active PROMETHAZINE HCL 25 MG TABS 1 four times a day as needed for nausea/vomiting PROMETHAZINE HCL 48570786596 No Longer Active Piotr Daley DO Active TUSSIONEX PENNKINETIC ER 10-8 MG/5ML LQCR 5ml po q12hr PRN Cough HYDROCOD POLST-CHLORPHEN POLST 38858395743 No Longer Active Piotr W Edi DO Active AZITHROMYCIN 250 MG TABS 2 po qd x 1 day, then 1 po qd x 4 days AZITHROMYCIN 94452972188 No Longer Active Piotr Daley DO Active AZITHROMYCIN 250 MG TABS 2 po qd x 1 day, then 1 po qd x 4 days AZITHROMYCIN 57097611978 No Longer Active Piotr Daley DO Active LISINOPRIL-HYDROCHLOROTHIAZIDE 10-12.5 MG TABS 1 tab by mouth daily LISINOPRIL-HYDROCHLOROTHIAZIDE 89801456807 Active Hilary Ma MA Active LISINOPRIL 10 MG TABS 1/2-1 tab po every other day LISINOPRIL 69433855391 No Longer Active Piotr Daley DO Active VENTOLIN HFA 108 (90 BASE) MCG/ACT AERS 2 puffs four times a day PRN cough ALBUTEROL SULFATE 28436768760 No Longer Active Piotr Daley DO Active NYSTATIN-TRIAMCINOLONE 399903-3.1 UNIT/GM-% CREA Apply to area BID NYSTATIN-TRIAMCINOLONE 91462712459 No Longer Active Alena Oswaldum [employer] [place] HOST/HOSTESS Active PHISOHEX 3 % LIQD Use Directed HEXACHLOROPHENE 31189358140 No Longer Active Sandra [place] Active AZITHROMYCIN 250 MG TABS 2 po qd x 1 day, then 1 po qd x 4 days AZITHROMYCIN 68313295031 No Longer Active Katrina Rinaldi MD PhD Active AZITHROMYCIN 250 MG TABS 2 po qd x 1 day, then 1 po qd x 4 days AZITHROMYCIN 89524024561 No Longer Active Piotr Daley DO Active AZITHROMYCIN 500 MG SOLR 1 po q day AZITHROMYCIN 16248830144 No Longer Active Piotr Daley DO Active NYSTATIN-TRIAMCINOLONE 786257-7.1 UNIT/GM-% CREA apply bid 08/19 NYSTATIN-TRIAMCINOLONE 76553867376 No Longer Active Piotr Daley DO Active IBUPROFEN 800 MG TABS 1 po q 8 hours prn pain sparinly IBUPROFEN 55443794189 No Longer Active Piotr Daley DO Active VITAMIN D3 5000 UNIT CAPS 1 po daily CHOLECALCIFEROL 20529207139 Active Piotr Daley DO Active IBUPROFEN 800 MG TABS 1 po q 8 hours prn pain sparinly IBUPROFEN 800 MG TABS 992906 IBUPROFEN Inactive NYSTATIN-TRIAMCINOLONE 730965-4.1 UNIT/GM-% CREA apply bid 08/19 NYSTATIN-TRIAMCINOLONE 778297-3.1 UNIT/GM-% CREA 9039184 NYSTATIN- TRIAMCINOLONE Inactive AZITHROMYCIN 500 MG SOLR 1 po q day AZITHROMYCIN 500 MG SOLR 82994395441 AZITHROMYCIN Inactive VENTOLIN HFA 108 (90 BASE) MCG/ACT AERS 2 puffs four times a day PRN cough VENTOLIN HFA 108 (90 BASE) MCG/ACT AERS ALBUTEROL SULFATE Inactive LISINOPRIL 10 MG TABS 1/2-1 tab po every other day LISINOPRIL 10 MG TABS 462656 LISINOPRIL Inactive TUSSIONEX PENNKINETIC ER 10-8 MG/5ML LQCR 5ml po q12hr PRN Cough TUSSIONEX PENNKINETIC ER 10-8 MG/5ML LQCR HYDROCOD POLST- CHLORPHEN POLST Inactive PROMETHAZINE HCL 25 MG TABS 1 four times a day as needed for nausea/vomiting PROMETHAZINE HCL 25 MG TABS 086909 PROMETHAZINE HCL Inactive PREDNISONE 20 MG TAB 1 tablet twice daily for 2 days, then 1 tablet once daily for 2 days PREDNISONE 20 MG TAB 963731 PREDNISONE Inactive WARFARIN SODIUM 4 MG TABS 1 tab every evening WARFARIN SODIUM 4 MG TABS 538923 WARFARIN SODIUM Inactive LOMOTIL 2.5-0.025 MG TAB 1 to 2 four times a day as needed for diarrhea 10/13 LOMOTIL 2.5-0.025 MG TAB 3666357 DIPHENOXYLATE-ATROPINE Inactive IBUPROFEN 800 MG TABS 1 tab every 8 hours as needed IBUPROFEN 800 MG TABS 753189 IBUPROFEN Inactive PREDNISONE 20 MG TAB 2 tablets today, then 1 tablet days 2 through 4 PREDNISONE 20 MG TAB 480952 PREDNISONE Inactive AZITHROMYCIN 250 MG TABS 2 po qd x 1 day, then 1 po qd x 4 days AZITHROMYCIN 250 MG TABS 4829044 AZITHROMYCIN Inactive AZITHROMYCIN 250 MG TABS 2 po qd x 1 day, then 1 po qd x 4 days AZITHROMYCIN 250 MG TABS 7909300 AZITHROMYCIN Inactive NYSTATIN-TRIAMCINOLONE 805849-7.1 UNIT/GM-% CREA Apply to area BID NYSTATIN-TRIAMCINOLONE 568419-6.1 UNIT/GM-% CREA 9866465 NYSTATIN-TRIAMCINOLONE Inactive AZITHROMYCIN 250 MG TABS 2 po qd x 1 day, then 1 po qd x 4 days AZITHROMYCIN 250 MG TABS 2710034 AZITHROMYCIN Inactive AZITHROMYCIN 250 MG TABS 2 po qd x 1 day, then 1 po qd x 4 days AZITHROMYCIN 250 MG TABS 9096827 AZITHROMYCIN Inactive AZITHROMYCIN 250 MG TABS 2 po qd x 1 day, then 1 po qd x 4 days AZITHROMYCIN 250 MG TABS 1825340 AZITHROMYCIN Inactive Advance Directives Directive Description Start [...] Lab Report: Comp. Metabolic Panel - Chemistry potassium, serum 4.2 mmol/L 3.5-5.2 chloride, serum 104 mmol/L 98-107 blood glucose 94 mg/dL 65-110 urea nitrogen, blood 15 mg/dL 7-18 creatinine, serum 1.08 mg/dL 0.55-1.30 alanine aminotransferase (SGPT), serum 25 U/L 12-78 aspartate aminotransferase (SGOT), serum 26 U/L 15-37 calcium, serum 8.7 mg/dL 8.5-10.1 bilirubin, serum, total 0.50 mg/dL 0.00-1.00 sodium, serum 141 mmol/L 797-771 9577/06/28 carbon dioxide, venous blood 31.0 mmol/L 21.0-32.0 Lab Report: MICROALB/CREAT W/RATIO, Prothrombin Time - [...] mg/g mg/g{creat} 0-29 sodium, serum 140 mmol/L 208-124 1294/07/17 potassium, serum 4.2 mmol/L 3.5-5.2 chloride, serum [...] Colorless;Lightyellow;Straw;Yellow Encounters Code Encounter Date Provider Facility CPT-99277 Level 3 Est. Patient 15:14:31 TEAR DOWN MAN Piotr Daley DO [facility] CPT-87798 Level 3 Est. Patient 09:20:13 TEAR DOWN MAN Piotr Katie Daley [facility] CPT-02223 Level 3 Est. Patient 09:49:40 CDT Piotr Daley [facility] CPT-15705 Level 3 Est. Patient 16:28:11 CDT Piotr Daley [facility] CPT-63960 Level 3 Est. Patient 12:41:58 TEAR DOWN MAN Piotr Daley [facility] CPT-97998 Level 3 Est. Patient 09:21:24 CDT Piotr Daley [facility] CPT-45238 Level 3 Est. Patient 09:21:11 CDT Piotr Daley [facility] CPT-13652 Level 3 Est. Patient 11:16:29 TEAR DOWN MAN Piotr Daley [facility] CPT-88135 Level 3 Est. Patient 18:40:19 TEAR DOWN MAN Piotr Daley [facility] CPT-30045 Level 3 Est. Patient 19:30:50 CDT Piotr Daley [facility] CPT-09169 Level 3 Est. Patient 22:06:44 CDT Katrina Rinaldi MD [facility] CPT-24199 Level 3 Est. Patient 14:20:00 CDT Piotr Daley [facility] CPT-80225 Level 3 Est. Patient 14:15:22 TEAR DOWN MAN Piotr Daley [facility] CPT-48363 Level 3 Est. Patient 20:19:57 TEAR DOWN MAN Piotr Daley [facility] CPT-14111 Level 3 Est. Patient 16:44:32 CDT Piotr Daley [facility] CPT-76366 Level 3 Est. Patient 08:48:46 TEAR DOWN MAN Piotr Daley [facility] CPT-78895 Level 3 Est. Patient 21:01:21 CDT Piotr Daley [facility] Procedures Code Procedure Name Date Entry Date Standard Description CPT-11814 Thoracolumbar AP/Lat 15:19:19 TEAR DOWN MAN CPT-G0438 Initial Annual Wellness Exam 12:18:54 TEAR DOWN MAN CPT-78964 Knee 3V 09:57:38 CDT CPT-OV Office Visit 15:45:01 TEAR DOWN MAN CPT-95602 Abd compl w upright 17:10:25 CDT
--- OUTSIDE RECORDS SUMMARY | 2018-07-18 10:53 | XMS REPORT | Clinical Summary ---
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 WARFARIN SODIUM 13818924411 Active Piotr Daley DO Active PREDNISONE 20 MG TAB 2 tablets today, then 1 tablet days 2 through 4 PREDNISONE 57255994497 No Longer Active Piotr Daley DO Active AZITHROMYCIN 250 MG TABS 2 po qd x 1 day, then 1 po qd x 4 days AZITHROMYCIN 13811258118 No Longer Active Piotr Daley DO Active IBUPROFEN 800 MG TABS 1 tab every 8 hours as needed IBUPROFEN 81100352915 No Longer Active Piotr Daley DO Active LOMOTIL 2.5-0.025 MG TAB 1 to 2 four times a day as needed for diarrhea 10/13 DIPHENOXYLATE-ATROPINE 34445152907 No Longer Active Piotr Daley DO Active WARFARIN SODIUM 4 MG TABS 1 tab every evening WARFARIN SODIUM 98095269052 No Longer Active Piotr Daley DO Active PREDNISONE 20 MG TAB 1 tablet twice daily for 2 days, then 1 tablet once daily for 2 days PREDNISONE 80906571951 No Longer Active Piotr Daley DO Active PROMETHAZINE HCL 25 MG TABS 1 four times a day as needed for nausea/vomiting PROMETHAZINE HCL 59466364545 No Longer Active Piotr Daley DO Active TUSSIONEX PENNKINETIC ER 10-8 MG/5ML LQCR 5ml po q12hr PRN Cough HYDROCOD POLST-CHLORPHEN POLST 89092044971 No Longer Active Piotr W Edi DO Active AZITHROMYCIN 250 MG TABS 2 po qd x 1 day, then 1 po qd x 4 days AZITHROMYCIN 95965635834 No Longer Active Piotr Daley DO Active AZITHROMYCIN 250 MG TABS 2 po qd x 1 day, then 1 po qd x 4 days AZITHROMYCIN 45242598921 No Longer Active Piotr Daley DO Active LISINOPRIL-HYDROCHLOROTHIAZIDE 10-12.5 MG TABS 1 tab by mouth daily LISINOPRIL-HYDROCHLOROTHIAZIDE 11093358428 Active Hilary Ma MA Active LISINOPRIL 10 MG TABS 1/2-1 tab po every other day LISINOPRIL 42231566274 No Longer Active Piotr Daley DO Active VENTOLIN HFA 108 (90 BASE) MCG/ACT AERS 2 puffs four times a day PRN cough ALBUTEROL SULFATE 63368961067 No Longer Active Piotr Daley DO Active NYSTATIN-TRIAMCINOLONE 592174-9.1 UNIT/GM-% CREA Apply to area BID NYSTATIN-TRIAMCINOLONE 34481491609 No Longer Active Alena Chavira CALCULATION REVIEWER Active PHISOHEX 3 % LIQD Use Directed HEXACHLOROPHENE 25310434673 No Longer Active Sandra [place] Active AZITHROMYCIN 250 MG TABS 2 po qd x 1 day, then 1 po qd x 4 days AZITHROMYCIN 51857627997 No Longer Active Katrina Rinaldi MD PhD Active AZITHROMYCIN 250 MG TABS 2 po qd x 1 day, then 1 po qd x 4 days AZITHROMYCIN 61145874526 No Longer Active Piotr Daley DO Active AZITHROMYCIN 500 MG SOLR 1 po q day AZITHROMYCIN 36820972295 No Longer Active Piotr Daley DO Active NYSTATIN-TRIAMCINOLONE 494749-3.1 UNIT/GM-% CREA apply bid 08/19 NYSTATIN-TRIAMCINOLONE 33918056026 No Longer Active Piotr Daley DO Active IBUPROFEN 800 MG TABS 1 po q 8 hours prn pain sparinly IBUPROFEN 46729860381 No Longer Active Piotr Daley DO Active VITAMIN D3 5000 UNIT CAPS 1 po daily CHOLECALCIFEROL 99488472987 Active Piotr Daley DO Active IBUPROFEN 800 MG TABS 1 po q 8 hours prn pain sparinly IBUPROFEN 800 MG TABS 728221 IBUPROFEN Inactive NYSTATIN-TRIAMCINOLONE 991197-8.1 UNIT/GM-% CREA apply bid 08/19 NYSTATIN-TRIAMCINOLONE 527790-2.1 UNIT/GM-% CREA 3352222 NYSTATIN- TRIAMCINOLONE Inactive AZITHROMYCIN 500 MG SOLR 1 po q day AZITHROMYCIN 500 MG SOLR 90640681355 AZITHROMYCIN Inactive VENTOLIN HFA 108 (90 BASE) MCG/ACT AERS 2 puffs four times a day PRN cough VENTOLIN HFA 108 (90 BASE) MCG/ACT AERS ALBUTEROL SULFATE Inactive LISINOPRIL 10 MG TABS 1/2-1 tab po every other day LISINOPRIL 10 MG TABS 024889 LISINOPRIL Inactive TUSSIONEX PENNKINETIC ER 10-8 MG/5ML LQCR 5ml po q12hr PRN Cough TUSSIONEX PENNKINETIC ER 10-8 MG/5ML LQCR HYDROCOD POLST- CHLORPHEN POLST Inactive PROMETHAZINE HCL 25 MG TABS 1 four times a day as needed for nausea/vomiting PROMETHAZINE HCL 25 MG TABS 135826 PROMETHAZINE HCL Inactive PREDNISONE 20 MG TAB 1 tablet twice daily for 2 days, then 1 tablet once daily for 2 days PREDNISONE 20 MG TAB 218484 PREDNISONE Inactive WARFARIN SODIUM 4 MG TABS 1 tab every evening WARFARIN SODIUM 4 MG TABS 684317 WARFARIN SODIUM Inactive LOMOTIL 2.5-0.025 MG TAB 1 to 2 four times a day as needed for diarrhea 10/13 LOMOTIL 2.5-0.025 MG TAB 5984490 DIPHENOXYLATE-ATROPINE Inactive IBUPROFEN 800 MG TABS 1 tab every 8 hours as needed IBUPROFEN 800 MG TABS 786737 IBUPROFEN Inactive PREDNISONE 20 MG TAB 2 tablets today, then 1 tablet days 2 through 4 PREDNISONE 20 MG TAB 119761 PREDNISONE Inactive AZITHROMYCIN 250 MG TABS 2 po qd x 1 day, then 1 po qd x 4 days AZITHROMYCIN 250 MG TABS 6516784 AZITHROMYCIN Inactive AZITHROMYCIN 250 MG TABS 2 po qd x 1 day, then 1 po qd x 4 days AZITHROMYCIN 250 MG TABS 0960613 AZITHROMYCIN Inactive NYSTATIN-TRIAMCINOLONE 360808-5.1 UNIT/GM-% CREA Apply to area BID NYSTATIN-TRIAMCINOLONE 761598-1.1 UNIT/GM-% CREA 8390610 NYSTATIN-TRIAMCINOLONE Inactive AZITHROMYCIN 250 MG TABS 2 po qd x 1 day, then 1 po qd x 4 days AZITHROMYCIN 250 MG TABS 5039703 AZITHROMYCIN Inactive AZITHROMYCIN 250 MG TABS 2 po qd x 1 day, then 1 po qd x 4 days AZITHROMYCIN 250 MG TABS 8869945 AZITHROMYCIN Inactive AZITHROMYCIN 250 MG TABS 2 po qd x 1 day, then 1 po qd x 4 days AZITHROMYCIN 250 MG TABS 0840409 AZITHROMYCIN Inactive Advance Directives Directive Description Start Date LIVING WILL Vital Signs Date Name Value Unit Range Description blood pressure, diastolic - 8462-4 82 mm[Hg] BP hpan blood pressure, systolic - [...] mg/g mg/g{creat} 0-29 sodium, serum 140 mmol/L 444-847 1012/07/17 potassium, serum 4.2 mmol/L 3.5-5.2 chloride, serum [...] 5.0-8.5 Encounters Code Encounter Date Provider Facility CPT-67131 Level 3 Est. Patient 15:14:31 GAS PLANT OPERATOR Piotr Daley [facility] CPT-68779 Level 3 Est. Patient 09:20:13 GAS PLANT OPERATOR Piotr Daley [facility] CPT-34906 Level 3 Est. Patient 09:49:40 CDT Piotr [facility] CPT-36998 Level 3 Est. Patient 16:28:11 CDT Piotr Daley [facility] CPT-36857 Level 3 Est. Patient 12:41:58 GAS PLANT OPERATOR Piotr Daley [facility] CPT-93953 Level 3 Est. Patient 09:21:24 CDT Piotr Daley [facility] CPT-81848 Level 3 Est. Patient 09:21:11 CDT Piotr Daley [facility] CPT-04919 Level 3 Est. Patient 11:16:29 GAS PLANT OPERATOR Piotr Daley [facility] CPT-96586 Level 3 Est. Patient 18:40:19 GAS PLANT OPERATOR Piotr Daley [facility] CPT-12871 Level 3 Est. Patient 19:30:50 CDT Piotr Daley [facility] CPT-89889 Level 3 Est. Patient 22:06:44 CDT Katrina Rinaldi MD PhD [facility] CPT-32617 Level 3 Est. Patient 14:20:00 CDT Piotr Daley [facility] CPT-20023 Level 3 Est. 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 Patient 20:19:57 [employer] OPERATOR Piotr Daley [facility] CPT-92331 Level 3 Est. Patient 16:44:32 CDT Piotr Katie Daley [facility] CPT-72088 Level 3 Est. Patient 08:48:46 [employer] OPERATOR Piotr Wilson [facility] CPT-20754 Level 3 Est. Patient 21:01:21 CDT Piotr Katie Edi [facility] Procedures Code Procedure Name Date Entry Date Standard Description CPT-04224 Thoracolumbar AP/Lat 15:19:19 [employer] CPT-G0438 Initial Annual Wellness Exam 12:18:54 [employer] OPER[employer] CPT-58579 Knee 3V 09:57:38 CDT CPT-OV Office Visit 15:45:01 [employer] OPER[employer] CPT-58017 Abd compl w upright 17:10:25 CDT
--- OUTSIDE RECORDS SUMMARY | 2018-07-18 10:54 | XMS REPORT | Clinical Summary ---
Author Author Admin, [employer] Organization [employer] Address Unknown Phone Unavailable Allergies, Adverse Reactions, [...] neoplasm of prostate V10.46 Active Alina Meyers PICKER Personal history of malignant neoplasm of prostate [...] neuropathy Insect bite 919.4 Resolved Piotr W Dei DO Insect bite, nonvenomous, of other, multiple, [...] THROMBOPHLEBITIS, LEG, 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 Inactive Sirisha Chen SCREENING TECH DEEP VENOUS THROMBOPHLEBITIS, LEG, 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 Inactive Sirisha Chen SCREENING TECH Seborrheic keratosis ICD-702.19 Inactive Sirisha Chen SCREENING TECH Bronchitis-Acute ICD-466.0 Inactive Piotr Daley DO Leg pain, right ICD-729.5 Inactive Sirisha Chen SCREENING TECH Right leg pain ICD-729.5 Inactive Sirisha Chen SCREENING TECH Bronchitis-Acute ICD-466.0 Inactive Sirisha Chen SCREENING TECH Knee pain, left ICD-719.46 Inactive Sirisha Chen SCREENING TECH Actinic keratoses ICD-702.0 Inactive Sirisha Chen SCREENING TECH Back pain, thoracic region, left ICD-724.1 Inactive Piotr Daley DO Thoracic back pain ICD-724.5 Inactive Sirisha Chen SCREENING TECH Back pain lumbar ICD-724.2 Inactive Sirisha Chen SCREENING TECH Insect bite ICD-919.4 Inactive Sirisha Chen SCREENING TECH Pruritus ICD-698.9 Inactive Sirisha Chen SCREENING TECH 04/09 Medication List Medication Instructions Start Date Stop Date Generic Name NDC Status Provider Patient Instruction WARFARIN SODIUM 5 MG ORAL TABLET 1 tablet daily M, T, T, F, Sa, 1/2 tab on W, Heart WARFARIN SODIUM 30651553320 Active Sirisha Gustavo LOO Active TESSALON PERLES 100 MG ORAL CAPSULE 1-2 tablet by mouth 3 times daily 04/16 BENZONATATE 65872572379 Active Piotr Daley DO Active PREDNISONE 10 MG ORAL TABLET 1 tablet by mouth daily PREDNISONE 47491595118 Active Piotr Daley DO Active PREDNISONE 20 MG ORAL TABLET two tabs by mouth today, then one tab by mouth days two and three PREDNISONE 95264195419 No Longer Active Piotr Daley DO Active CYCLOBENZAPRINE HCL 10 MG ORAL TABLET 1 tablet by mouth three times daily as needed for muscle spasm/pain CYCLOBENZAPRINE HCL 30624867817 Active Piotr Daley DO Active ZITHROMAX 250 MG ORAL TABLET Take two (2 ) tablets day one, then one (1) tablet a day for four (4) more days AZITHROMYCIN 32163937247 No Longer Active Piotr Daley DO Active PROAIR HFA 108 (90 BASE) MCG/ACT INHALATION AEROSOL SOLUTION 1-2 puffs four times a day as needed ALBUTEROL SULFATE 61877497362 No Longer Active Emelyn Norris Active DOXYCYCLINE HYCLATE 100 MG ORAL CAPSULE 1 cap by mouth BID x10 days DOXYCYCLINE HYCLATE 35579582002 No Longer Active Nella Harris APRN Active PREDNISONE 20 MG ORAL TABLET 2 tabs daily for 3 days, 1 tab daily for 3 days, 1/2 tab daily for 2 days PREDNISONE 63781045342 No Longer Active Matthew Rangel MD Active TRAMADOL HCL 50 MG ORAL TABLET 1 po tid with ES Tylenol TRAMADOL HCL 12814613198 No Longer Active Matthew Rangel MD Active GABAPENTIN 300 MG ORAL CAPSULE 1 po q hs for nerve pain GABAPENTIN 97724323333 No Longer Active Matthew Rangel MD Active PREDNISONE 20 MG ORAL TABLET 2 tablets today, then 1 tablet days 2 through 4 PREDNISONE 73208039279 No Longer Active Piotr Daley DO Active AZITHROMYCIN 250 MG ORAL TABLET 2 po qd x 1 day, then 1 po qd x 4 days 07/12 AZITHROMYCIN 88025267007 No Longer Active Piotr Daley DO Active IBUPROFEN 800 MG ORAL TABLET 1 tab every 8 hours as needed 07/12 IBUPROFEN 36568198642 No Longer Active Piotr Daley DO Active LOMOTIL 2.5-0.025 MG ORAL TABLET 1 to 2 four times a day as needed for diarrhea DIPHENOXYLATE-ATROPINE 19971126789 No Longer Active Piotr Daley DO Active WARFARIN SODIUM 4 MG ORAL TABLET 1 tab every evening WARFARIN SODIUM 60419007881 No Longer Active Piotr Daley DO Active PREDNISONE 20 MG ORAL TABLET 1 tablet twice daily for 2 days, then 1 tablet once daily for 2 days PREDNISONE 91881668646 No Longer Active Piotr Daley DO Active PROMETHAZINE HCL 25 MG ORAL TABLET 1 four times a day as needed for nausea/ vomiting PROMETHAZINE HCL 37188216154 No Longer Active Piotr Daley DO Active TUSSIONEX PENNKINETIC ER 10-8 MG/5ML ORAL SUSPENSION EXTENDED RELEASE 5ml po q12hr PRN Cough HYDROCOD POLST-CHLORPHEN POLST 23892946098 No Longer Active Piotr Daley DO Active AZITHROMYCIN 250 MG ORAL TABLET 2 po qd x 1 day, then 1 po qd x 4 days 10/13 AZITHROMYCIN 47112151249 No Longer Active Piotr Daley DO Active AZITHROMYCIN 250 MG ORAL TABLET 2 po qd x 1 day, then 1 po qd x 4 days 05/07 AZITHROMYCIN 66877121266 No Longer Active Piotr Daley DO Active LISINOPRIL-HYDROCHLOROTHIAZIDE 10-12.5 MG ORAL TABLET 1 tab by mouth daily LISINOPRIL-HYDROCHLOROTHIAZIDE 02059605189 Active Piotr Daley DO Active LISINOPRIL 10 MG ORAL TABLET 1/2-1 tab po every other day LISINOPRIL 22077319296 No Longer Active Piotr Daley DO Active VENTOLIN HFA 108 (90 Base) MCG/ACT INHALATION AEROSOL SOLUTION 2 puffs four times a day PRN cough ALBUTEROL SULFATE 78208258926 No Longer Active Piotr Daley DO Active NYSTATIN-TRIAMCINOLONE 601370-3.1 UNIT/GM-% EXTERNAL CREAM Apply to area BID NYSTATIN-TRIAMCINOLONE 55342114679 No Longer Active Alena Chavira SCREENING TECH Active PHISOHEX 3 % LIQD Use Directed HEXACHLOROPHENE 02132353429 No Longer Active Sandra Salinas Active AZITHROMYCIN 250 MG ORAL TABLET 2 po qd x 1 day, then 1 po qd x 4 days 10/21 AZITHROMYCIN 90689106256 No Longer Active Katrina Rinaldi MD PhD Active AZITHROMYCIN 250 MG ORAL TABLET 2 po qd x 1 day, then 1 po qd x 4 days 10/16 AZITHROMYCIN 75518372980 No Longer Active Piotr Daley DO Active AZITHROMYCIN 500 MG INTRAVENOUS SOLUTION RECONSTITUTED 1 po q day AZITHROMYCIN 06777996501 No Longer Active Piotr Daley DO Active NYSTATIN-TRIAMCINOLONE 305639-0.1 UNIT/GM-% EXTERNAL CREAM apply bid NYSTATIN-TRIAMCINOLONE 62119299393 No Longer Active Piotr Daley DO Active IBUPROFEN 800 MG ORAL TABLET 1 po q 8 hours prn pain sparinly IBUPROFEN 01519702620 No Longer Active Piotr Daley DO Active VITAMIN D3 5000 UNIT ORAL CAPSULE 1 po daily CHOLECALCIFEROL 41157835295 Active Piotr Daley DO Active IBUPROFEN 800 MG ORAL TABLET 1 po q 8 hours prn pain sparinly IBUPROFEN 800 MG ORAL TABLET 557244 IBUPROFEN Inactive NYSTATIN-TRIAMCINOLONE 403920-5.1 UNIT/GM-% EXTERNAL CREAM apply bid NYSTATIN-TRIAMCINOLONE 635504-6.1 UNIT/GM-% EXTERNAL CREAM 4393161 NYSTATIN-TRIAMCINOLONE Inactive AZITHROMYCIN 500 MG INTRAVENOUS SOLUTION RECONSTITUTED 1 po q day AZITHROMYCIN 500 MG INTRAVENOUS SOLUTION RECONSTITUTED 49472534278 AZITHROMYCIN Inactive VENTOLIN HFA 108 (90 Base) MCG/ACT INHALATION AEROSOL SOLUTION 2 puffs four times a day PRN cough VENTOLIN HFA 108 (90 Base) MCG/ ACT INHALATION AEROSOL SOLUTION ALBUTEROL SULFATE Inactive LISINOPRIL 10 MG ORAL TABLET 1/2-1 tab po every other day LISINOPRIL 10 MG ORAL TABLET 488109 LISINOPRIL Inactive TUSSIONEX PENNKINETIC ER 10-8 MG/5ML ORAL SUSPENSION EXTENDED RELEASE 5ml po q12hr PRN Cough TUSSIONEX PENNKINETIC ER 10-8 MG/5ML ORAL SUSPENSION EXTENDED RELEASE HYDROCOD POLST-CHLORPHEN POLST Inactive PROMETHAZINE HCL 25 MG ORAL TABLET 1 four times a day as needed for nausea/ vomiting PROMETHAZINE HCL 25 MG ORAL TABLET 780797 PROMETHAZINE HCL Inactive PREDNISONE 20 MG ORAL TABLET 1 tablet twice daily for 2 days, then 1 tablet once daily for 2 days PREDNISONE 20 MG ORAL TABLET 856026 PREDNISONE Inactive WARFARIN SODIUM 4 MG ORAL TABLET 1 tab every evening WARFARIN SODIUM 4 MG ORAL TABLET 360575 WARFARIN SODIUM Inactive LOMOTIL 2.5-0.025 MG ORAL TABLET 1 to 2 four times a day as needed for diarrhea LOMOTIL 2.5-0.025 MG ORAL TABLET 2582459 DIPHENOXYLATE-ATROPINE Inactive IBUPROFEN 800 MG ORAL TABLET 1 tab every 8 hours as needed 07/12 IBUPROFEN 800 MG ORAL TABLET 991374 IBUPROFEN Inactive PREDNISONE 20 MG ORAL TABLET 2 tablets today, then 1 tablet days 2 through 4 PREDNISONE 20 MG ORAL TABLET 024605 PREDNISONE Inactive GABAPENTIN 300 MG ORAL CAPSULE 1 po q hs for nerve pain GABAPENTIN 300 MG ORAL CAPSULE 750054 GABAPENTIN Inactive TRAMADOL HCL 50 MG ORAL TABLET 1 po tid with ES Tylenol TRAMADOL HCL 50 MG ORAL TABLET 288134 TRAMADOL HCL Inactive PROAIR HFA 108 (90 BASE) MCG/ACT INHALATION AEROSOL SOLUTION 1-2 puffs four times a day as needed PROAIR HFA 108 (90 BASE) MCG/ACT INHALATION AEROSOL SOLUTION ALBUTEROL SULFATE Inactive PREDNISONE 20 MG ORAL TABLET two tabs by mouth today, then one tab by mouth days two and three PREDNISONE 20 MG ORAL TABLET 379957 PREDNISONE Inactive AZITHROMYCIN 250 MG ORAL TABLET 2 po qd x 1 day, then 1 po qd x 4 days 10/16 AZITHROMYCIN 250 MG ORAL TABLET 959706 AZITHROMYCIN Inactive AZITHROMYCIN 250 MG ORAL TABLET 2 po qd x 1 day, then 1 po qd x 4 days 10/21 AZITHROMYCIN 250 MG ORAL TABLET 101574 AZITHROMYCIN Inactive NYSTATIN-TRIAMCINOLONE 065028-2.1 UNIT/GM-% EXTERNAL CREAM Apply to area BID NYSTATIN-TRIAMCINOLONE 418483-6.1 UNIT/GM-% EXTERNAL CREAM 6344553 NYSTATIN-TRIAMCINOLONE Inactive AZITHROMYCIN 250 MG ORAL TABLET 2 po qd x 1 day, then 1 po qd x 4 days 05/07 AZITHROMYCIN 250 MG ORAL TABLET 064602 AZITHROMYCIN Inactive AZITHROMYCIN 250 MG ORAL TABLET 2 po qd x 1 day, then 1 po qd x 4 days 10/13 AZITHROMYCIN 250 MG ORAL TABLET 212484 AZITHROMYCIN Inactive AZITHROMYCIN 250 MG ORAL TABLET 2 po qd x 1 day, then 1 po qd x 4 days 07/12 AZITHROMYCIN 250 MG ORAL TABLET 860256 AZITHROMYCIN Inactive PREDNISONE 20 MG ORAL TABLET 2 tabs daily for 3 days, 1 tab daily for 3 days, 1/2 tab daily for 2 days PREDNISONE 20 MG ORAL TABLET 805980 PREDNISONE Inactive DOXYCYCLINE HYCLATE 100 MG ORAL CAPSULE 1 cap by mouth BID x10 days DOXYCYCLINE HYCLATE 100 MG ORAL CAPSULE 3668371 DOXYCYCLINE HYCLATE Inactive ZITHROMAX 250 MG ORAL TABLET Take two (2 ) tablets day one, then one (1) tablet a day for four (4) more days ZITHROMAX 250 MG ORAL TABLET 169620 AZITHROMYCIN Inactive Advance Directives Directive Description Start [...] % 11.0-15.0 platelet count 172 THOUSAND/UL 10*3/mm3 988-606 4446/04/12 mean platelet volume 8.6 fL 7.5-12.5 Lab Report: Prothrombin Time Hemochron - Coagulation prothrombin time (patient) 33.0 SECS s 18.9-24.9 Encounters Code Encounter Date Provider Facility CPT-42316 Level 3 Est. Patient 12:33:59 GREEN PRIZE PACKER Piotr Katie Edi [facility] CPT-49481 Level 3 Est. Patient 15:56:17 GREEN PRIZE PACKER Piotr Wilson [facility] CPT-01248 Level 3 Est. Patient 10:34:54 GREEN PRIZE PACKER Piotr Wilson [facility] CPT-07908 Level 3 Est. Patient 17:10:19 CDT Nella Harris APRN [facility] CPT-24362 Level 3 Est. Patient 10:48:17 GREEN PRIZE PACKER Matthew Rangel MD [facility] CPT-03498 Level 4 Est. Patient 17:15:07 GREEN PRIZE PACKER Piotr Wilson [facility] CPT-99947 Level 3 Est. Patient 12:46:13 GREEN PRIZE PACKER Piotr Wilson [facility] CPT-40278 Level 3 Est. Patient 15:14:31 GREEN PRIZE PACKER Piotr Daley [facility] CPT-44894 Level 3 Est. Patient 09:20:13 GREEN PRIZE PACKER Piotr Wilson Edi [facility] CPT-18508 Level 3 Est. Patient 09:49:40 CDT Piotr Wilson [facility] CPT-59788 Level 3 Est. Patient 16:28:11 CDT Piotr Daley [facility] CPT-41529 Level 3 Est. Patient 12:41:58 GREEN PRIZE PACKER Piotr Daley [facility] CPT-15397 Level 3 Est. Patient 09:21:24 CDT Piotr Wilson [facility] CPT-01854 Level 3 Est. Patient 09:21:11 CDT Piotr Wilson [facility] CPT-01498 Level 3 Est. Patient 11:16:29 GREEN PRIZE PACKER Piotr Daley [facility] CPT-70691 Level 3 Est. Patient 18:40:19 GREEN PRIZE PACKER Piotr Daley [facility] CPT-29538 Level 3 Est. Patient 19:30:50 CDT Piotr Daley [facility] CPT-19625 Level 3 Est. Patient 22:06:44 CDT Katrina Rinaldi MD [facility] CPT-25342 Level 3 Est. Patient 14:20:00 CDT Piotr Daley [facility] CPT-22203 Level 3 Est. Patient 14:15:22 GREEN PRIZE PACKER Piotr Daley [facility] CPT-15428 Level 3 Est. Patient 20:19:57 GREEN PRIZE PACKER Piotr Daley [facility] CPT-44120 Level 3 Est. Patient 16:44:32 CDT Piotr Daley [facility] CPT-59845 Level 3 Est. Patient 08:48:46 GREEN PRIZE PACKER Piotr Daley [facility] CPT-14738 Level 3 Est. Patient 21:01:21 CDT Piotr Daley [facility] Procedures Code Procedure Name Date Entry Date Standard Description CPT-33768 LS spine comp w obliques - XRAY USE ONLY 14:52:26 GREEN PRIZE PACKER CPT-49596 Chest, 2 views 12:55:58 GREEN [employer]IZE PACKER CPT-G0439 [facility] Annual Wellness Exam 10:34:52 GREEN PRIZE PACKER CPT-71320 BMP - LAB USE ONLY 17:19:11 GREEN [employer]IZE PACKER CPT-69081 PT/INR - LAB USE ONLY 17:19:10 GREEN [employer]IZE PACKER CPT-93443 Venipuncture Draw Fee 17:19:10 GREEN [employer]IZE P[employer]ER CPT-32698 PT/INR - LAB USE ONLY 08:12:25 GREEN [employer]IZE PACKER CPT-85574 Venipuncture Draw Fee 08:12:24 GREEN PRIZE PACKER CPT-87660 Venipuncture Draw Fee 11:31:07 GREEN [employer]IZE PACKER CPT-56513 TPSA - LAB USE ONLY 11:31:07 GREEN [employer]IZE P[employer]ER CPT-55201 PT/INR - LAB USE ONLY 11:31:07 GREEN [employer]IZE P[employer]ER CPT-G0439 Subsequent Annual Wellness Exam 09:59:29 GREEN [employer]IZE PACKER CPT-77861 Creatinine - LAB USE ONLY 14:37:55 GREEN [employer]IZE P[employer]ER CPT-50669 PT/INR - LAB USE ONLY 14:37:55 GREEN [employer]IZE PACKER CPT-98782 Venipuncture Draw Fee 14:37:55 GREEN PRIZE PACKER CPT-59535 LS spine comp w obliques - XRAY USE ONLY 12:59:25 GREEN [employer]IZE PACKER CPT-07520 PT/INR - LAB USE ONLY 13:49:20 CDT CPT-57845 Venipuncture Draw Fee 13:49:19 CDT CPT-16652 PT/INR - LAB USE ONLY 15:48:49 CDT CPT-27391 Venipuncture Draw Fee 15:48:49 CDT CPT-92234 Venipuncture Draw Fee 11:31:59 CDT CPT-98022 PT/INR - LAB USE ONLY 11:31:59 CDT CPT-90092 Venipuncture Draw Fee 13:29:15 CDT CPT-98703 Thoracolumbar AP/Lat 15:19:19 GREEN PRIZE PACKER CPT-G0438 Initial Annual Wellness Exam 12:18:54 GREEN PRIZE PACKER CPT-46023 Knee 3V 09:57:38 CDT CPT-OV Office Visit 15:45:01 GREEN PRIZE PACKER CPT-02005 Abd compl w upright 17:10:25 CDT
--- OUTSIDE RECORDS SUMMARY | 2018-07-18 10:54 | XMS REPORT | Clinical Summary ---
Author Author Admin, YONG Organization [facility] Address Unknown Phone Unavailable Allergies, [...] po tid with ES Tylenol TRAMADOL HCL 02925270065 Active Piotr Daley DO Active WARFARIN SODIUM 5 MG TABS 1 tablet daily except for Saturday and Sat 1/2 tablet. WARFARIN SODIUM 62523888675 Active Piotr Daley DO Active PREDNISONE 20 MG TAB 2 tablets today, then 1 tablet days 2 through 4 PREDNISONE 87585403987 No Longer Active Piotr Daley DO Active AZITHROMYCIN 250 MG TABS 2 po qd x 1 day, then 1 po qd x 4 days AZITHROMYCIN 70483933909 No Longer Active Piotr Daley DO Active IBUPROFEN 800 MG TABS 1 tab every 8 hours as needed IBUPROFEN 12036868075 No Longer Active Piotr Daley DO Active LOMOTIL 2.5-0.025 MG TAB 1 to 2 four times a day as needed for diarrhea 10/13 DIPHENOXYLATE-ATROPINE 98658502406 No Longer Active Piotr Daley DO Active WARFARIN SODIUM 4 MG TABS 1 tab every evening WARFARIN SODIUM 30059749385 No Longer Active Piotr Daley DO Active PREDNISONE 20 MG TAB 1 tablet twice daily for 2 days, then 1 tablet once daily for 2 days PREDNISONE 37395880058 No Longer Active Piotr Daley DO Active PROMETHAZINE HCL 25 MG TABS 1 four times a day as needed for nausea/vomiting PROMETHAZINE HCL 34988249577 No Longer Active Piotr Daley DO Active TUSSIONEX PENNKINETIC ER 10-8 MG/5ML LQCR 5ml po q12hr PRN Cough HYDROCOD POLST-CHLORPHEN POLST 09865253851 No Longer Active Piotr Daley DO Active AZITHROMYCIN 250 MG TABS 2 po qd x 1 day, then 1 po qd x 4 days AZITHROMYCIN 92286958261 No Longer Active Piotr Daley DO Active AZITHROMYCIN 250 MG TABS 2 po qd x 1 day, then 1 po qd x 4 days AZITHROMYCIN 18746381347 No Longer Active Piotr Daley DO Active LISINOPRIL-HYDROCHLOROTHIAZIDE 10-12.5 MG TABS 1 tab by mouth daily LISINOPRIL-HYDROCHLOROTHIAZIDE 81235966361 Active Piotr Daley DO Active LISINOPRIL 10 MG TABS 1/2-1 tab po every other day LISINOPRIL 25357196149 No Longer Active Piotr Daley DO Active VENTOLIN HFA 108 (90 BASE) MCG/ACT AERS 2 puffs four times a day PRN cough ALBUTEROL SULFATE 41543087891 No Longer Active Piotr Daley DO Active NYSTATIN-TRIAMCINOLONE 747267-2.1 UNIT/GM-% CREA Apply to area BID NYSTATIN-TRIAMCINOLONE 09889905282 No Longer Active Alena Jarvis Fan [employer]INDER CHAINSTITCH Active PHISOHEX 3 % LIQD Use Directed HEXACHLOROPHENE 07246133409 No Longer Active Sandra [place] Active AZITHROMYCIN 250 MG TABS 2 po qd x 1 day, then 1 po qd x 4 days AZITHROMYCIN 92136998608 No Longer Active Katrina Rinaldi MD PhD Active AZITHROMYCIN 250 MG TABS 2 po qd x 1 day, then 1 po qd x 4 days AZITHROMYCIN 45072410365 No Longer Active Piotr Daley DO Active AZITHROMYCIN 500 MG SOLR 1 po q day AZITHROMYCIN 62804693985 No Longer Active Piotr Daley DO Active NYSTATIN-TRIAMCINOLONE 413341-1.1 UNIT/GM-% CREA apply bid 08/19 NYSTATIN-TRIAMCINOLONE 34200400894 No Longer Active Piotr Daley DO Active IBUPROFEN 800 MG TABS 1 po q 8 hours prn pain sparinly IBUPROFEN 45266740142 No Longer Active Piotr Daley DO Active VITAMIN D3 5000 UNIT CAPS 1 po daily CHOLECALCIFEROL 15088410510 Active Piotr Daley DO Active IBUPROFEN 800 MG TABS 1 po q 8 hours prn pain sparinly IBUPROFEN 800 MG TABS IBUPROFEN Inactive NYSTATIN-TRIAMCINOLONE 465545-5.1 UNIT/GM-% CREA apply bid 08/19 NYSTATIN-TRIAMCINOLONE 658666-0.1 UNIT/GM-% CREA 2871577 NYSTATIN- TRIAMCINOLONE Inactive AZITHROMYCIN 500 MG SOLR 1 po q day AZITHROMYCIN 500 MG SOLR 684894 AZITHROMYCIN Inactive VENTOLIN HFA 108 (90 BASE) MCG/ACT AERS 2 puffs four times a day PRN cough VENTOLIN HFA 108 (90 BASE) MCG/ACT AERS ALBUTEROL SULFATE Inactive LISINOPRIL 10 MG TABS 1/2-1 tab po every other day LISINOPRIL 10 MG TABS 143923 LISINOPRIL Inactive TUSSIONEX PENNKINETIC ER 10-8 MG/5ML LQCR 5ml po q12hr PRN Cough TUSSIONEX PENNKINETIC ER 10-8 MG/5ML LQCR HYDROCOD POLST- CHLORPHEN POLST Inactive PROMETHAZINE HCL 25 MG TABS 1 four times a day as needed for nausea/vomiting PROMETHAZINE HCL 25 MG TABS 226224 PROMETHAZINE HCL Inactive PREDNISONE 20 MG TAB 1 tablet twice daily for 2 days, then 1 tablet once daily for 2 days PREDNISONE 20 MG TAB 675696 PREDNISONE Inactive WARFARIN SODIUM 4 MG TABS 1 tab every evening WARFARIN SODIUM 4 MG TABS 858788 WARFARIN SODIUM Inactive LOMOTIL 2.5-0.025 MG TAB 1 to 2 four times a day as needed for diarrhea 10/13 LOMOTIL 2.5-0.025 MG TAB 1837272 DIPHENOXYLATE-ATROPINE Inactive IBUPROFEN 800 MG TABS 1 tab every 8 hours as needed IBUPROFEN 800 MG TABS 360201 IBUPROFEN Inactive PREDNISONE 20 MG TAB 2 tablets today, then 1 tablet days 2 through 4 PREDNISONE 20 MG TAB 133306 PREDNISONE Inactive AZITHROMYCIN 250 MG TABS 2 po qd x 1 day, then 1 po qd x 4 days AZITHROMYCIN 250 MG TABS 6083333 AZITHROMYCIN Inactive AZITHROMYCIN 250 MG TABS 2 po qd x 1 day, then 1 po qd x 4 days AZITHROMYCIN 250 MG TABS 6901506 AZITHROMYCIN Inactive NYSTATIN-TRIAMCINOLONE 620757-4.1 UNIT/GM-% CREA Apply to area BID NYSTATIN-TRIAMCINOLONE 265652-6.1 UNIT/GM-% CREA 3109688 NYSTATIN-TRIAMCINOLONE Inactive AZITHROMYCIN 250 MG TABS 2 po qd x 1 day, then 1 po qd x 4 days AZITHROMYCIN 250 MG TABS 2864894 AZITHROMYCIN Inactive AZITHROMYCIN 250 MG TABS 2 po qd x 1 day, then 1 po qd x 4 days AZITHROMYCIN 250 MG TABS 9645788 AZITHROMYCIN Inactive AZITHROMYCIN 250 MG TABS 2 po qd x 1 day, then 1 po qd x 4 days AZITHROMYCIN 250 MG TABS 6047591 AZITHROMYCIN Inactive Advance Directives Directive Description Start [...] mg/g mg/g{creat} 0-29 sodium, serum 140 mmol/L 901-106 6453/07/17 potassium, serum 4.2 mmol/L 3.5-5.2 chloride, serum [...] 5.0-8.5 Encounters Code Encounter Date Provider Facility CPT-12328 Level 3 Est. Patient 15:14:31 TIME CLOCK REPAIRER Piotr Daley [facility] CPT-23575 Level 3 Est. Patient 09:20:13 TIME CLOCK REPAIRER Piotr Daley [facility]-89018 Level 3 Est. Patient 09:49:40 CDT Piotr Daley [facility] CPT-46056 Level 3 Est. Patient 16:28:11 CDT Piotr Daley [facility] CPT-28929 Level 3 Est. Patient 12:41:58 TIME CLOCK REPAIRER Piotr Daley [facility] CPT-65792 Level 3 Est. Patient 09:21:24 CDT Piotr Daley [facility]-89983 Level 3 Est. Patient 09:21:11 CDT Piotr Daley [facility]-49516 Level 3 Est. Patient 11:16:29 TIME CLOCK REPAIRER Piotr Daley [facility] CPT-49401 Level 3 Est. Patient 18:40:19 TIME CLOCK REPAIRER Piotr Daley [facility]-85446 Level 3 Est. Patient 19:30:50 CDT Piotr Daley [facility]-95791 Level 3 Est. Patient 22:06:44 CDT Katrina Rinaldi MD PhD [facility]-68339 Level 3 Est. Patient 14:20:00 CDT Piotr Wilson Edi [facility] CPT-07607 Level 3 Est. Patient 14:15:22 TIME CLOCK REPAIRER Piotr Daley [facility] CPT-68221 Level 3 Est. Patient 20:19:57 TIME CLOCK REPAIRER Piotr Wilson Edi [facility] CPT-93616 Level 3 Est. Patient 16:44:32 CDT Piotr Daley [facility] CPT-52086 Level 3 Est. Patient 08:48:46 TIME CLOCK REPAIRER Piotr Wilson [facility] CPT-93707 Level 3 Est. Patient 21:01:21 CDT Piotr Wilson [facility] Procedures Code Procedure Name Date Entry Date Standard Description CPT-16089 Thoracolumbar AP/Lat 15:19:19 TIME CLOCK REPAIRER CPT-G0438 Initial Annual Wellness Exam 12:18:54 TIME CLOCK REPAIRER CPT-95129 Knee 3V 09:57:38 CDT CPT-OV Office Visit 15:45:01 TIME CLOCK REPAIRER CPT-98740 Abd compl w upright 17:10:25 CDT
--- OUTSIDE RECORDS SUMMARY | 2018-07-18 10:55 | XMS REPORT | Clinical Summary ---
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 Piort Daley DO Personal history of malignant neoplasm [...] MG TABS 1 tablet daily WARFARIN SODIUM 02473281504 Active Emelyn Goode RPT,RMA Active TRAMADOL HCL 50 MG TABS 1 po tid with ES Tylenol TRAMADOL HCL 20359531757 Active Piotr Daley DO Active PREDNISONE 20 MG TAB 2 tablets today, then 1 tablet days 2 through 4 PREDNISONE 98609656381 No Longer Active Piotr Daley DO Active AZITHROMYCIN 250 MG TABS 2 po qd x 1 day, then 1 po qd x 4 days AZITHROMYCIN 04508131085 No Longer Active Piotr Daley DO Active IBUPROFEN 800 MG TABS 1 tab every 8 hours as needed IBUPROFEN 69038268406 No Longer Active Piotr Daley DO Active LOMOTIL 2.5-0.025 MG TAB 1 to 2 four times a day as needed for diarrhea 10/13 DIPHENOXYLATE-ATROPINE 45076511466 No Longer Active Piotr Daley DO Active WARFARIN SODIUM 4 MG TABS 1 tab every evening WARFARIN SODIUM 63083560458 No Longer Active Piotr Daley DO Active PREDNISONE 20 MG TAB 1 tablet twice daily for 2 days, then 1 tablet once daily for 2 days PREDNISONE 18990667172 No Longer Active Piotr Daley DO Active PROMETHAZINE HCL 25 MG TABS 1 four times a day as needed for nausea/vomiting PROMETHAZINE HCL 60868978947 No Longer Active Piotr Daley DO Active TUSSIONEX PENNKINETIC ER 10-8 MG/5ML LQCR 5ml po q12hr PRN Cough HYDROCOD POLST-CHLORPHEN POLST 86946708857 No Longer Active Piotr W Edi DO Active AZITHROMYCIN 250 MG TABS 2 po qd x 1 day, then 1 po qd x 4 days AZITHROMYCIN 71298519716 No Longer Active Piotr Daley DO Active AZITHROMYCIN 250 MG TABS 2 po qd x 1 day, then 1 po qd x 4 days AZITHROMYCIN 07956943695 No Longer Active Piotr Daley DO Active LISINOPRIL-HYDROCHLOROTHIAZIDE 10-12.5 MG TABS 1 tab by mouth daily LISINOPRIL-HYDROCHLOROTHIAZIDE 06115322427 Active Hilary Ma MA Active LISINOPRIL 10 MG TABS 1/2-1 tab po every other day LISINOPRIL 19157570023 No Longer Active Piotr Daley DO Active VENTOLIN HFA 108 (90 BASE) MCG/ACT AERS 2 puffs four times a day PRN cough ALBUTEROL SULFATE 31187902609 No Longer Active Piotr Daley DO Active NYSTATIN-TRIAMCINOLONE 453897-3.1 UNIT/GM-% CREA Apply to area BID NYSTATIN-TRIAMCINOLONE 01744912291 No Longer Active Alena Oswaldum PORTFOLIO ADMINISTRATOR Active PHISOHEX 3 % LIQD Use Directed HEXACHLOROPHENE 49273227219 No Longer Active Sandra [place] Active AZITHROMYCIN 250 MG TABS 2 po qd x 1 day, then 1 po qd x 4 days AZITHROMYCIN 77562686355 No Longer Active Katrina Rinaldi MD PhD Active AZITHROMYCIN 250 MG TABS 2 po qd x 1 day, then 1 po qd x 4 days AZITHROMYCIN 81747211179 No Longer Active Piotr Daley DO Active AZITHROMYCIN 500 MG SOLR 1 po q day AZITHROMYCIN 23536929749 No Longer Active Piotr Daley DO Active NYSTATIN-TRIAMCINOLONE 151396-5.1 UNIT/GM-% CREA apply bid 08/19 NYSTATIN-TRIAMCINOLONE 60352676327 No Longer Active Piotr Daley DO Active IBUPROFEN 800 MG TABS 1 po q 8 hours prn pain sparinly IBUPROFEN 48472345881 No Longer Active Piotr Daley DO Active VITAMIN D3 5000 UNIT CAPS 1 po daily CHOLECALCIFEROL 63544669934 Active Piotr Daley DO Active IBUPROFEN 800 MG TABS 1 po q 8 hours prn pain sparinly IBUPROFEN 800 MG TABS 450801 IBUPROFEN Inactive NYSTATIN-TRIAMCINOLONE 793388-7.1 UNIT/GM-% CREA apply bid 08/19 NYSTATIN-TRIAMCINOLONE 557726-9.1 UNIT/GM-% CREA 5369341 NYSTATIN- TRIAMCINOLONE Inactive AZITHROMYCIN 500 MG SOLR 1 po q day AZITHROMYCIN 500 MG SOLR 15107606871 AZITHROMYCIN Inactive VENTOLIN HFA 108 (90 BASE) MCG/ACT AERS 2 puffs four times a day PRN cough VENTOLIN HFA 108 (90 BASE) MCG/ACT AERS ALBUTEROL SULFATE Inactive LISINOPRIL 10 MG TABS 1/2-1 tab po every other day LISINOPRIL 10 MG TABS 472328 LISINOPRIL Inactive TUSSIONEX PENNKINETIC ER 10-8 MG/5ML LQCR 5ml po q12hr PRN Cough TUSSIONEX PENNKINETIC ER 10-8 MG/5ML LQCR HYDROCOD POLST- CHLORPHEN POLST Inactive PROMETHAZINE HCL 25 MG TABS 1 four times a day as needed for nausea/vomiting PROMETHAZINE HCL 25 MG TABS 277146 PROMETHAZINE HCL Inactive PREDNISONE 20 MG TAB 1 tablet twice daily for 2 days, then 1 tablet once daily for 2 days PREDNISONE 20 MG TAB 311852 PREDNISONE Inactive WARFARIN SODIUM 4 MG TABS 1 tab every evening WARFARIN SODIUM 4 MG TABS 304657 WARFARIN SODIUM Inactive LOMOTIL 2.5-0.025 MG TAB 1 to 2 four times a day as needed for diarrhea 10/13 LOMOTIL 2.5-0.025 MG TAB 8371146 DIPHENOXYLATE-ATROPINE Inactive IBUPROFEN 800 MG TABS 1 tab every 8 hours as needed IBUPROFEN 800 MG TABS 798343 IBUPROFEN Inactive PREDNISONE 20 MG TAB 2 tablets today, then 1 tablet days 2 through 4 PREDNISONE 20 MG TAB 599066 PREDNISONE Inactive AZITHROMYCIN 250 MG TABS 2 po qd x 1 day, then 1 po qd x 4 days AZITHROMYCIN 250 MG TABS 9179354 AZITHROMYCIN Inactive AZITHROMYCIN 250 MG TABS 2 po qd x 1 day, then 1 po qd x 4 days AZITHROMYCIN 250 MG TABS 4802408 AZITHROMYCIN Inactive NYSTATIN-TRIAMCINOLONE 221777-5.1 UNIT/GM-% CREA Apply to area BID NYSTATIN-TRIAMCINOLONE 379566-3.1 UNIT/GM-% CREA 2104297 NYSTATIN-TRIAMCINOLONE Inactive AZITHROMYCIN 250 MG TABS 2 po qd x 1 day, then 1 po qd x 4 days AZITHROMYCIN 250 MG TABS 2258593 AZITHROMYCIN Inactive AZITHROMYCIN 250 MG TABS 2 po qd x 1 day, then 1 po qd x 4 days AZITHROMYCIN 250 MG TABS 4559308 AZITHROMYCIN Inactive AZITHROMYCIN 250 MG TABS 2 po qd x 1 day, then 1 po qd x 4 days AZITHROMYCIN 250 MG TABS 9128287 AZITHROMYCIN Inactive Advance Directives Directive Description Start [...] Panel - Chemistry sodium, serum 141 mmol/L 930-354 8804/06/28 carbon dioxide, venous blood 31.0 mmol/L 21.0-32.0 [...] 4.2 mmol/L 3.5-5.2 sodium, serum 140 mmol/L 931-601 9295/07/17 albumin/creatinine ratio, urine < 30 mg/g mg/g{creat} [...] 19.9 SECS s 11.1-13.4 prothrombin time (patient) 15.4 SECS s 11.1-13.4 international normalized ratio (INR) 1.7 1.0-3.5 prothrombin time (patient) 18.9 SECS s 11.1-13.4 international normalized ratio (INR) 2.4 1.0-3.5 prothrombin time (patient) 16.6 SECS s 11.1-13.4 international normalized ratio (INR) 1.9 1.0-3.5 prothrombin time (patient) 18.3 SECS s 11.1-13.4 international normalized ratio (INR) 2.3 1.0-3.5 international normalized ratio (INR) 2.6 1.0-3.5 prothrombin time (patient) 17.3 SECS s 11.1-13.4 international normalized ratio (INR) 1.99 1.0-3.5 prothrombin time (patient) 18.1 SECS s [...] 5.0-8.5 Encounters Code Encounter Date Provider Facility CPT-23649 Level 3 Est. Patient 15:14:31 HEAD TELLER Piotr Daley DO [facility] CPT-69989 Level 3 Est. Patient 09:20:13 HEAD TELLER Piotr Katie Daley [facility] CPT-30914 Level 3 Est. Patient 09:49:40 CDT Piotr Daley [facility] CPT-65568 Level 3 Est. Patient 16:28:11 CDT Piotr Daley [facility] CPT-50850 Level 3 Est. Patient 12:41:58 HEAD TELLER Piotr Daley [facility] CPT-06839 Level 3 Est. Patient 09:21:24 CDT Piotr Daley [facility] CPT-98559 Level 3 Est. Patient 09:21:11 CDT Piotr Daley [facility] CPT-54403 Level 3 Est. Patient 11:16:29 HEAD TELLER Piotr Daley [facility] CPT-87224 Level 3 Est. Patient 18:40:19 HEAD TELLER Piotr Daley [facility] CPT-98620 Level 3 Est. Patient 19:30:50 CDT Piotr Daley [facility] CPT-06380 Level 3 Est. Patient 22:06:44 CDT Katrina Rinaldi MD [facility] CPT-65360 Level 3 Est. Patient 14:20:00 CDT Piotr Daley [facility] CPT-53364 Level 3 Est. Patient 14:15:22 HEAD TELLER Piotr Daley [facility] CPT-80551 Level 3 Est. Patient 20:19:57 HEAD TELLER Piotr Daley [facility] CPT-22138 Level 3 Est. Patient 16:44:32 CDT Piotr Daley [facility] CPT-97603 Level 3 Est. Patient 08:48:46 HEAD TELLER Piotr Daley [facility] CPT-42576 Level 3 Est. Patient 21:01:21 CDT Piotr W Edi DO [facility] Procedures Code Procedure Name Date Entry Date Standard Description CPT-17595 Thoracolumbar AP/Lat 15:19:19 HEAD TELLER CPT-G0438 Initial Annual Wellness Exam 12:18:54 HEAD TELLER CPT-80752 Knee 3V 09:57:38 CDT CPT-OV Office Visit 15:45:01 HEAD TELLER CPT-40360 Abd compl w upright 17:10:25 CDT
--- OUTSIDE RECORDS SUMMARY | 2018-07-18 10:56 | XMS REPORT | Clinical Summary ---
Author Author Admin, Isidra Organization [employer] Address Unknown Phone Unavailable Allergies, Adverse [...] po q hs for nerve pain GABAPENTIN 39980381366 Active Piotr Daley DO Active WARFARIN SODIUM 5 MG TABS 1 tablet daily WARFARIN SODIUM 00364025620 Active Simi Meyers Active TRAMADOL HCL 50 MG TABS 1 po tid with ES Tylenol TRAMADOL HCL 47526317881 Active Piotr Daley DO Active PREDNISONE 20 MG TAB 2 tablets today, then 1 tablet days 2 through 4 PREDNISONE 75542666158 No Longer Active Piotr Daley DO Active AZITHROMYCIN 250 MG TABS 2 po qd x 1 day, then 1 po qd x 4 days AZITHROMYCIN 89523092743 No Longer Active Piotr Daley DO Active IBUPROFEN 800 MG TABS 1 tab every 8 hours as needed IBUPROFEN 53931378779 No Longer Active Piotr Daley DO Active LOMOTIL 2.5-0.025 MG TAB 1 to 2 four times a day as needed for diarrhea 10/13 DIPHENOXYLATE-ATROPINE 51521317955 No Longer Active Piotr Daley DO Active WARFARIN SODIUM 4 MG TABS 1 tab every evening WARFARIN SODIUM 17952181937 No Longer Active Piotr Daley DO Active PREDNISONE 20 MG TAB 1 tablet twice daily for 2 days, then 1 tablet once daily for 2 days PREDNISONE 45338027299 No Longer Active Piotr Daley DO Active PROMETHAZINE HCL 25 MG TABS 1 four times a day as needed for nausea/vomiting PROMETHAZINE HCL 78806753465 No Longer Active Piotr Daley DO Active TUSSIONEX PENNKINETIC ER 10-8 MG/5ML LQCR 5ml po q12hr PRN Cough HYDROCOD POLST-CHLORPHEN POLST 90150145575 No Longer Active Piotr Daley DO Active AZITHROMYCIN 250 MG TABS 2 po qd x 1 day, then 1 po qd x 4 days AZITHROMYCIN 66103461170 No Longer Active Piotr Daley DO Active AZITHROMYCIN 250 MG TABS 2 po qd x 1 day, then 1 po qd x 4 days AZITHROMYCIN 01346470674 No Longer Active Piotr Daley DO Active LISINOPRIL-HYDROCHLOROTHIAZIDE 10-12.5 MG TABS 1 tab by mouth daily LISINOPRIL-HYDROCHLOROTHIAZIDE 29620700929 Active Hilary Ma MA Active LISINOPRIL 10 MG TABS 1/2-1 tab po every other day LISINOPRIL 60340738589 No Longer Active Piotr Daley DO Active VENTOLIN HFA 108 (90 BASE) MCG/ACT AERS 2 puffs four times a day PRN cough ALBUTEROL SULFATE 17207576111 No Longer Active Piotr Daley DO Active NYSTATIN-TRIAMCINOLONE 396265-1.1 UNIT/GM-% CREA Apply to area BID NYSTATIN-TRIAMCINOLONE 61344064745 No Longer Active Alena Chavira FIRE CAPTAIN MARINE Active PHISOHEX 3 % LIQD Use Directed HEXACHLOROPHENE 64522966578 No Longer Active Sandra [place] Active AZITHROMYCIN 250 MG TABS 2 po qd x 1 day, then 1 po qd x 4 days AZITHROMYCIN 23499616498 No Longer Active Katrina Rinaldi MD PhD Active AZITHROMYCIN 250 MG TABS 2 po qd x 1 day, then 1 po qd x 4 days AZITHROMYCIN 87312599806 No Longer Active Piotr Daley DO Active AZITHROMYCIN 500 MG SOLR 1 po q day AZITHROMYCIN 12278956126 No Longer Active Piotr Daley DO Active NYSTATIN-TRIAMCINOLONE 945668-9.1 UNIT/GM-% CREA apply bid 08/19 NYSTATIN-TRIAMCINOLONE 10491496479 No Longer Active Piotr Daley DO Active IBUPROFEN 800 MG TABS 1 po q 8 hours prn pain sparinly IBUPROFEN 62273629466 No Longer Active Piotr Daley DO Active VITAMIN D3 5000 UNIT CAPS 1 po daily CHOLECALCIFEROL 16807401167 Active Piotr Daley DO Active IBUPROFEN 800 MG TABS 1 po q 8 hours prn pain sparinly IBUPROFEN 800 MG TABS 215772 IBUPROFEN Inactive NYSTATIN-TRIAMCINOLONE 515170-3.1 UNIT/GM-% CREA apply bid 08/19 NYSTATIN-TRIAMCINOLONE 325171-1.1 UNIT/GM-% CREA 5833183 NYSTATIN- TRIAMCINOLONE Inactive AZITHROMYCIN 500 MG SOLR 1 po q day AZITHROMYCIN 500 MG SOLR 27958948636 AZITHROMYCIN Inactive VENTOLIN HFA 108 (90 BASE) MCG/ACT AERS 2 puffs four times a day PRN cough VENTOLIN HFA 108 (90 BASE) MCG/ACT AERS ALBUTEROL SULFATE Inactive LISINOPRIL 10 MG TABS 1/2-1 tab po every other day LISINOPRIL 10 MG TABS 930539 LISINOPRIL Inactive TUSSIONEX PENNKINETIC ER 10-8 MG/5ML LQCR 5ml po q12hr PRN Cough TUSSIONEX PENNKINETIC ER 10-8 MG/5ML LQCR HYDROCOD POLST- CHLORPHEN POLST Inactive PROMETHAZINE HCL 25 MG TABS 1 four times a day as needed for nausea/vomiting PROMETHAZINE HCL 25 MG TABS 851446 PROMETHAZINE HCL Inactive PREDNISONE 20 MG TAB 1 tablet twice daily for 2 days, then 1 tablet once daily for 2 days PREDNISONE 20 MG TAB 694537 PREDNISONE Inactive WARFARIN SODIUM 4 MG TABS 1 tab every evening WARFARIN SODIUM 4 MG TABS 542080 WARFARIN SODIUM Inactive LOMOTIL 2.5-0.025 MG TAB 1 to 2 four times a day as needed for diarrhea 10/13 LOMOTIL 2.5-0.025 MG TAB 8552423 DIPHENOXYLATE-ATROPINE Inactive IBUPROFEN 800 MG TABS 1 tab every 8 hours as needed IBUPROFEN 800 MG TABS 137083 IBUPROFEN Inactive PREDNISONE 20 MG TAB 2 tablets today, then 1 tablet days 2 through 4 PREDNISONE 20 MG TAB 990477 PREDNISONE Inactive AZITHROMYCIN 250 MG TABS 2 po qd x 1 day, then 1 po qd x 4 days AZITHROMYCIN 250 MG TABS 6707224 AZITHROMYCIN Inactive AZITHROMYCIN 250 MG TABS 2 po qd x 1 day, then 1 po qd x 4 days AZITHROMYCIN 250 MG TABS 4363783 AZITHROMYCIN Inactive NYSTATIN-TRIAMCINOLONE 402335-9.1 UNIT/GM-% CREA Apply to area BID NYSTATIN-TRIAMCINOLONE 840303-8.1 UNIT/GM-% CREA 7422197 NYSTATIN-TRIAMCINOLONE Inactive AZITHROMYCIN 250 MG TABS 2 po qd x 1 day, then 1 po qd x 4 days AZITHROMYCIN 250 MG TABS 9546852 AZITHROMYCIN Inactive AZITHROMYCIN 250 MG TABS 2 po qd x 1 day, then 1 po qd x 4 days AZITHROMYCIN 250 MG TABS 9281205 AZITHROMYCIN Inactive AZITHROMYCIN 250 MG TABS 2 po qd x 1 day, then 1 po qd x 4 days AZITHROMYCIN 250 MG TABS 7592168 AZITHROMYCIN Inactive Advance Directives Directive Description Start [...] Panel - Chemistry sodium, serum 141 mmol/L 855-105 2108/06/28 carbon dioxide, venous blood 31.0 mmol/L 21.0-32.0 [...] Negative Encounters Code Encounter Date Provider Facility CPT-30072 Level 3 Est. Patient 12:46:13 FIBERGLASS QUALITY TECHNICIAN Piotr Katie Daley [facility] CPT-48355 Level 3 Est. Patient 15:14:31 FIBERGLASS QUALITY TECHNICIAN Piotr Daley [facility] CPT-77256 Level 3 Est. Patient 09:20:13 FIBERGLASS QUALITY TECHNICIAN Piotr Daley [facility] CPT-99132 Level 3 Est. Patient 09:49:40 CDT Piotr Daley [facility] CPT-67355 Level 3 Est. Patient 16:28:11 CDT Piotr Daley [facility] CPT-24506 Level 3 Est. Patient 12:41:58 FIBERGLASS QUALITY TECHNICIAN Piotr Daley [facility] CPT-53135 Level 3 Est. Patient 09:21:24 CDT Piotr Daley [facility] CPT-89714 Level 3 Est. Patient 09:21:11 CDT Piotr Daley [facility] CPT-83417 Level 3 Est. Patient 11:16:29 FIBERGLASS QUALITY TECHNICIAN Piotr Daley [facility] CPT-64955 Level 3 Est. Patient 18:40:19 FIBERGLASS QUALITY TECHNICIAN Piotr Daley [facility] CPT-87003 Level 3 Est. Patient 19:30:50 CDT Piotr Daley [facility] CPT-17873 Level 3 Est. Patient 22:06:44 CDT Katrina Rinaldi MD PhD [facility] CPT-23718 Level 3 Est. Patient 14:20:00 CDT Piotr Daley [facility] CPT-16260 Level 3 Est. Patient 14:15:22 FIBERGLASS QUALITY TECHNICIAN Piotr Daley [facility] CPT-11883 Level 3 Est. Patient 20:19:57 FIBERGLASS QUALITY TECHNICIAN Piotr Daley [facility] CPT-99441 Level 3 Est. Patient 16:44:32 CDT Piotr Daley [facility] CPT-58099 Level 3 Est. Patient 08:48:46 FIBERGLASS QUALITY TECHNICIAN Piotr Daley [facility] CPT-38313 Level 3 Est. Patient 21:01:21 CDT Piotr Daley [facility] Procedures Code Procedure Name Date Entry Date Standard Description CPT-37592 Creatinine - LAB USE ONLY 14:37:55 FIBERGLASS QUALITY TECHNICIAN CPT-31702 PT/INR - LAB USE ONLY 14:37:55 FIBERGLASS QUALITY TECHNICIAN CPT-61684 Venipuncture Draw Fee 14:37:55 FIBERGLASS QUALITY TECHNICIAN CPT-84106 LS spine comp w obliques - XRAY USE ONLY 12:59:25 FIBERGLASS QUALITY TECHNICIAN CPT-00088 PT/INR - LAB USE ONLY 13:49:20 CDT CPT-46065 Venipuncture Draw Fee 13:49:19 CDT CPT-17353 PT/INR - LAB USE ONLY 15:48:49 CDT CPT-96630 Venipuncture Draw Fee 15:48:49 CDT CPT-73761 Venipuncture Draw Fee 11:31:59 CDT CPT-29951 PT/INR - LAB USE ONLY 11:31:59 CDT CPT-29331 Venipuncture Draw Fee 13:29:15 CDT CPT-71646 Thoracolumbar AP/Lat 15:19:19 FIBERGLASS QUALITY TECHNICIAN CPT-G0438 Initial Annual Wellness Exam 12:18:54 FIBERGLASS QUALITY TECHNICIAN CPT-43946 Knee 3V 09:57:38 CDT CPT-OV Office Visit 15:45:01 FIBERGLASS QUALITY TECHNICIAN CPT-43760 Abd compl w upright 17:10:25 CDT
--- OUTSIDE RECORDS SUMMARY | 2018-07-18 10:57 | XMS REPORT | Clinical Summary ---
Author Author Admin, [employer] Organization [employer] Address Unknown Phone Unavailable Allergies, Adverse Reactions, [...] THROMBOPHLEBITIS, LEG, 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 Inactive Sirisha Chen [employer]BL[employer] DEEP VENOUS THROMBOPHLEBITIS, LEG, 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 Inactive Sirisha Chen [employer] Seborrheic keratosis ICD-702.19 Inactive Sirisha Chen [employer] Bronchitis-Acute ICD-466.0 Inactive Piotr Daley DO Leg pain, right ICD-729.5 Inactive Sirisha Chen [employer] Right leg pain ICD-729.5 Inactive Sirisha Chen [employer] Bronchitis-Acute ICD-466.0 Inactive Sirisha Chen [employer] Knee pain, left ICD-719.46 Inactive Sirisha Chen [employer] Actinic keratoses ICD-702.0 Inactive Sirisha Chen [employer] Back pain, thoracic region, left ICD-724.1 Inactive Piotr Daley DO Thoracic back pain ICD-724.5 Inactive Sirisha Chen [employer] Back pain lumbar ICD-724.2 Inactive Sirisha Chen [employer] Insect bite ICD-919.4 Inactive Sirisha Chen [employer] Pruritus ICD-698.9 Inactive Sirisha Chen [employer] 04/09 Medication List Medication Instructions Start Date Stop Date Generic Name NDC Status Provider Patient Instruction WARFARIN SODIUM 5 MG ORAL TABLET 1 tablet daily M, T, T, F, Sa, 1/2 tab on W, Heart WARFARIN SODIUM 27176592999 Active Sirishaandre Chen LPN Active TESSALON PERLES 100 MG ORAL CAPSULE 1-2 tablet by mouth 3 times daily 04/16 BENZONATATE 76796364925 Active Piotr Daley DO Active PREDNISONE 10 MG ORAL TABLET 1 tablet by mouth daily PREDNISONE 88628532202 Active Piotr Daley DO Active PREDNISONE 20 MG ORAL TABLET two tabs by mouth today, then one tab by mouth days two and three PREDNISONE 57280170321 No Longer Active Piotr Daley DO Active CYCLOBENZAPRINE HCL 10 MG ORAL TABLET 1 tablet by mouth three times daily as needed for muscle spasm/pain CYCLOBENZAPRINE HCL 22692674387 Active Piotr Daley DO Active ZITHROMAX 250 MG ORAL TABLET Take two (2 ) tablets day one, then one (1) tablet a day for four (4) more days AZITHROMYCIN 84164835323 No Longer Active Piotr Daley DO Active PROAIR HFA 108 (90 BASE) MCG/ACT INHALATION AEROSOL SOLUTION 1-2 puffs four times a day as needed ALBUTEROL SULFATE 72543505619 No Longer Active Emelyn Norris Active DOXYCYCLINE HYCLATE 100 MG ORAL CAPSULE 1 cap by mouth BID x10 days DOXYCYCLINE HYCLATE 34818816503 No Longer Active Nella Harris APRN Active PREDNISONE 20 MG ORAL TABLET 2 tabs daily for 3 days, 1 tab daily for 3 days, 1/2 tab daily for 2 days PREDNISONE 90584511283 No Longer Active Matthew Rangel MD Active TRAMADOL HCL 50 MG ORAL TABLET 1 po tid with ES Tylenol TRAMADOL HCL 34422122356 No Longer Active Matthew Rangel MD Active GABAPENTIN 300 MG ORAL CAPSULE 1 po q hs for nerve pain GABAPENTIN 16245857454 No Longer Active Matthew Rangel MD Active PREDNISONE 20 MG ORAL TABLET 2 tablets today, then 1 tablet days 2 through 4 PREDNISONE 18436928043 No Longer Active Piotr Daley DO Active AZITHROMYCIN 250 MG ORAL TABLET 2 po qd x 1 day, then 1 po qd x 4 days 07/12 AZITHROMYCIN 36325706840 No Longer Active Piotr Daley DO Active IBUPROFEN 800 MG ORAL TABLET 1 tab every 8 hours as needed 07/12 IBUPROFEN 09690364649 No Longer Active Piotr Daley DO Active LOMOTIL 2.5-0.025 MG ORAL TABLET 1 to 2 four times a day as needed for diarrhea DIPHENOXYLATE-ATROPINE 31567511058 No Longer Active Piotr Daley DO Active WARFARIN SODIUM 4 MG ORAL TABLET 1 tab every evening WARFARIN SODIUM 41846876660 No Longer Active Piotr Daley DO Active PREDNISONE 20 MG ORAL TABLET 1 tablet twice daily for 2 days, then 1 tablet once daily for 2 days PREDNISONE 65506024405 No Longer Active Piotr Daley DO Active PROMETHAZINE HCL 25 MG ORAL TABLET 1 four times a day as needed for nausea/ vomiting PROMETHAZINE HCL 22105738861 No Longer Active Piotr Daley DO Active TUSSIONEX PENNKINETIC ER 10-8 MG/5ML ORAL SUSPENSION EXTENDED RELEASE 5ml po q12hr PRN Cough HYDROCOD POLST-CHLORPHEN POLST 39414370523 No Longer Active Piotr Daley DO Active AZITHROMYCIN 250 MG ORAL TABLET 2 po qd x 1 day, then 1 po qd x 4 days 10/13 AZITHROMYCIN 35743086490 No Longer Active Piotr Daley DO Active AZITHROMYCIN 250 MG ORAL TABLET 2 po qd x 1 day, then 1 po qd x 4 days 05/07 AZITHROMYCIN 38405417602 No Longer Active Piotr Daley DO Active LISINOPRIL-HYDROCHLOROTHIAZIDE 10-12.5 MG ORAL TABLET 1 tab by mouth daily LISINOPRIL-HYDROCHLOROTHIAZIDE 60703559527 Active Piotr Daley DO Active LISINOPRIL 10 MG ORAL TABLET 1/2-1 tab po every other day LISINOPRIL 67559650901 No Longer Active Piotr Daley DO Active VENTOLIN HFA 108 (90 Base) MCG/ACT INHALATION AEROSOL SOLUTION 2 puffs four times a day PRN cough ALBUTEROL SULFATE 46140419745 No Longer Active Piotr Daley DO Active NYSTATIN-TRIAMCINOLONE 225901-2.1 UNIT/GM-% EXTERNAL CREAM Apply to area BID NYSTATIN-TRIAMCINOLONE 94436107140 No Longer Active Alena Chavira [employer]BLER Active PHISOHEX 3 % LIQD Use Directed HEXACHLOROPHENE 45234733309 No Longer Active Sandra [place] Active AZITHROMYCIN 250 MG ORAL TABLET 2 po qd x 1 day, then 1 po qd x 4 days 10/21 AZITHROMYCIN 87769505033 No Longer Active Katrina Rinaldi MD PhD Active AZITHROMYCIN 250 MG ORAL TABLET 2 po qd x 1 day, then 1 po qd x 4 days 10/16 AZITHROMYCIN 66162508137 No Longer Active Piotr Daley DO Active AZITHROMYCIN 500 MG INTRAVENOUS SOLUTION RECONSTITUTED 1 po q day AZITHROMYCIN 53217762978 No Longer Active Piotr Daley DO Active NYSTATIN-TRIAMCINOLONE 496494-8.1 UNIT/GM-% EXTERNAL CREAM apply bid NYSTATIN-TRIAMCINOLONE 62358213257 No Longer Active Piotr Daley DO Active IBUPROFEN 800 MG ORAL TABLET 1 po q 8 hours prn pain sparinly IBUPROFEN 20360854970 No Longer Active Piotr Daley DO Active VITAMIN D3 5000 UNIT ORAL CAPSULE 1 po daily CHOLECALCIFEROL 54934115988 Active Piotr Daley DO Active IBUPROFEN 800 MG ORAL TABLET 1 po q 8 hours prn pain sparinly IBUPROFEN 800 MG ORAL TABLET 522573 IBUPROFEN Inactive NYSTATIN-TRIAMCINOLONE 020645-4.1 UNIT/GM-% EXTERNAL CREAM apply bid NYSTATIN-TRIAMCINOLONE 631907-3.1 UNIT/GM-% EXTERNAL CREAM 6762868 NYSTATIN-TRIAMCINOLONE Inactive AZITHROMYCIN 500 MG INTRAVENOUS SOLUTION RECONSTITUTED 1 po q day AZITHROMYCIN 500 MG INTRAVENOUS SOLUTION RECONSTITUTED 24773131222 AZITHROMYCIN Inactive VENTOLIN HFA 108 (90 Base) MCG/ACT INHALATION AEROSOL SOLUTION 2 puffs four times a day PRN cough VENTOLIN HFA 108 (90 Base) MCG/ ACT INHALATION AEROSOL SOLUTION ALBUTEROL SULFATE Inactive LISINOPRIL 10 MG ORAL TABLET 1/2-1 tab po every other day LISINOPRIL 10 MG ORAL TABLET 985651 LISINOPRIL Inactive TUSSIONEX PENNKINETIC ER 10-8 MG/5ML ORAL SUSPENSION EXTENDED RELEASE 5ml po q12hr PRN Cough TUSSIONEX PENNKINETIC ER 10-8 MG/5ML ORAL SUSPENSION EXTENDED RELEASE HYDROCOD POLST-CHLORPHEN POLST Inactive PROMETHAZINE HCL 25 MG ORAL TABLET 1 four times a day as needed for nausea/ vomiting PROMETHAZINE HCL 25 MG ORAL TABLET 585856 PROMETHAZINE HCL Inactive PREDNISONE 20 MG ORAL TABLET 1 tablet twice daily for 2 days, then 1 tablet once daily for 2 days PREDNISONE 20 MG ORAL TABLET 639336 PREDNISONE Inactive WARFARIN SODIUM 4 MG ORAL TABLET 1 tab every evening WARFARIN SODIUM 4 MG ORAL TABLET 504923 WARFARIN SODIUM Inactive LOMOTIL 2.5-0.025 MG ORAL TABLET 1 to 2 four times a day as needed for diarrhea LOMOTIL 2.5-0.025 MG ORAL TABLET 4754918 DIPHENOXYLATE-ATROPINE Inactive IBUPROFEN 800 MG ORAL TABLET 1 tab every 8 hours as needed 07/12 IBUPROFEN 800 MG ORAL TABLET 075857 IBUPROFEN Inactive PREDNISONE 20 MG ORAL TABLET 2 tablets today, then 1 tablet days 2 through 4 PREDNISONE 20 MG ORAL TABLET 505347 PREDNISONE Inactive GABAPENTIN 300 MG ORAL CAPSULE 1 po q hs for nerve pain GABAPENTIN 300 MG ORAL CAPSULE 643341 GABAPENTIN Inactive TRAMADOL HCL 50 MG ORAL TABLET 1 po tid with ES Tylenol TRAMADOL HCL 50 MG ORAL TABLET 597562 TRAMADOL HCL Inactive PROAIR HFA 108 (90 BASE) MCG/ACT INHALATION AEROSOL SOLUTION 1-2 puffs four times a day as needed PROAIR HFA 108 (90 BASE) MCG/ACT INHALATION AEROSOL SOLUTION ALBUTEROL SULFATE Inactive PREDNISONE 20 MG ORAL TABLET two tabs by mouth today, then one tab by mouth days two and three PREDNISONE 20 MG ORAL TABLET 041173 PREDNISONE Inactive AZITHROMYCIN 250 MG ORAL TABLET 2 po qd x 1 day, then 1 po qd x 4 days 10/16 AZITHROMYCIN 250 MG ORAL TABLET 749058 AZITHROMYCIN Inactive AZITHROMYCIN 250 MG ORAL TABLET 2 po qd x 1 day, then 1 po qd x 4 days 10/21 AZITHROMYCIN 250 MG ORAL TABLET 471366 AZITHROMYCIN Inactive NYSTATIN-TRIAMCINOLONE 417088-8.1 UNIT/GM-% EXTERNAL CREAM Apply to area BID NYSTATIN-TRIAMCINOLONE 031450-8.1 UNIT/GM-% EXTERNAL CREAM 3067077 NYSTATIN-TRIAMCINOLONE Inactive AZITHROMYCIN 250 MG ORAL TABLET 2 po qd x 1 day, then 1 po qd x 4 days 05/07 AZITHROMYCIN 250 MG ORAL TABLET 182692 AZITHROMYCIN Inactive AZITHROMYCIN 250 MG ORAL TABLET 2 po qd x 1 day, then 1 po qd x 4 days 10/13 AZITHROMYCIN 250 MG ORAL TABLET 311682 AZITHROMYCIN Inactive AZITHROMYCIN 250 MG ORAL TABLET 2 po qd x 1 day, then 1 po qd x 4 days 07/12 AZITHROMYCIN 250 MG ORAL TABLET 495924 AZITHROMYCIN Inactive PREDNISONE 20 MG ORAL TABLET 2 tabs daily for 3 days, 1 tab daily for 3 days, 1/2 tab daily for 2 days PREDNISONE 20 MG ORAL TABLET 776683 PREDNISONE Inactive DOXYCYCLINE HYCLATE 100 MG ORAL CAPSULE 1 cap by mouth BID x10 days DOXYCYCLINE HYCLATE 100 MG ORAL CAPSULE 5545261 DOXYCYCLINE HYCLATE Inactive ZITHROMAX 250 MG ORAL TABLET Take two (2 ) tablets day one, then one (1) tablet a day for four (4) more days ZITHROMAX 250 MG ORAL TABLET 615975 AZITHROMYCIN Inactive Advance Directives Directive Description Start [...] Panel - Chemistry sodium, serum 141 mmol/L 476-989 1619/01/24 potassium, serum 4.3 mmol/L 3.5-5.2 chloride, serum [...] % 11.0-15.0 platelet count 172 THOUSAND/UL 10*3/mm3 322-620 1724/04/12 mean platelet volume 8.6 fL 7.5-12.5 Lab Report: Prothrombin Time - Coagulation prothrombin time (patient) 27.8 SECS s 11.1-13.4 international normalized ratio (INR) 4.2 1.0-3.5 Lab Report: Prothrombin Time Hemochron - Coagulation prothrombin time (patient) 33.0 SECS s 18.9-24.9 Encounters Code Encounter Date Provider Facility CPT-31751 Level 3 Est. Patient 12:33:59 [employer] Piotr Daley [facility] CPT-67085 Level 3 Est. Patient 15:56:17 [employer] Piotr [facility] CPT-68955 Level 3 Est. Patient 10:34:54 [employer] Piotr Daley [facility] CPT-72007 Level 3 Est. Patient 17:10:19 CDJose Harris APRN [facility] CPT-25477 Level 3 Est. Patient 10:48:17 [employer] Matthew Rangel MD [facility] CPT-05003 Level 4 Est. Patient 17:15:07 [employer] Piotr Daley [facility] CPT-25081 Level 3 Est. Patient 12:46:13 [employer] Piotr Daley [facility] CPT-57829 Level 3 Est. Patient 15:14:31 [employer] Piotr Daley [facility] CPT-40898 Level 3 Est. Patient 09:20:13 [employer] Piotr Daley [facility] CPT-47787 Level 3 Est. Patient 09:49:40 CDT Piotr Daley [facility] CPT-10439 Level 3 Est. Patient 16:28:11 CDT Piotr Daley [facility] CPT-20941 Level 3 Est. Patient 12:41:58 [employer] Piotr Daley [facility] CPT-60657 Level 3 Est. Patient 09:21:24 CDT Piotr Katie Daley [facility] CPT-73446 Level 3 Est. Patient 09:21:11 CDT Piotr Daley [facility] CPT-31828 Level 3 Est. Patient 11:16:29 [employer] Piotr Daley [facility] CPT-94998 Level 3 Est. Patient 18:40:19 [employer] Piotr Daley [facility] CPT-98503 Level 3 Est. Patient 19:30:50 CDT Piotr Daley [facility] CPT-69799 Level 3 Est. Patient 22:06:44 CDT Katrina Rinaldi MD [facility] CPT-99813 Level 3 Est. Patient 14:20:00 CDT Piotr Daley [facility] CPT-31165 Level 3 Est. Patient 14:15:22 [employer] Piotr Daley [facility] CPT-61834 Level 3 Est. Patient 20:19:57 [employer] Piotr Daley [facility] CPT-53903 Level 3 Est. Patient 16:44:32 CDT Piotr Daley [facility] CPT-69711 Level 3 Est. Patient 08:48:46 [employer] Piotr Daley [facility] CPT-16340 Level 3 Est. Patient 21:01:21 CDT Piotr Daley [facility] Procedures Code Procedure Name Date Entry Date Standard Description CPT-20455 LS spine comp w obliques - XRAY USE ONLY 14:52:26 [employer] CPT-78631 Chest, 2 views 12:55:58 [employer] CPT-G0439 Subsequent Annual Wellness Exam 10:34:52 [employer] CPT-78340 BMP - LAB USE ONLY 17:19:11 [employer] CPT-88839 PT/INR - LAB USE ONLY 17:19:10 [employer] CPT-76875 Venipuncture Draw Fee 17:19:10 [employer] CPT-89698 PT/INR - LAB USE ONLY 08:12:25 [employer] CPT-91713 Venipuncture Draw Fee 08:12:24 [employer] CPT-96860 Venipuncture Draw Fee 11:31:07 [employer] CPT-25208 TPSA - LAB USE ONLY 11:31:07 [employer] CPT-47352 PT/INR - LAB USE ONLY 11:31:07 [employer] CPT-G0439 Subsequent Annual Wellness Exam 09:59:29 [employer] CPT-29460 Creatinine - LAB USE ONLY 14:37:55 [employer] CPT-96849 PT/INR - LAB USE ONLY 14:37:55 [employer] CPT-72582 Venipuncture Draw Fee 14:37:55 [employer] CPT-18368 LS spine comp w obliques - XRAY USE ONLY 12:59:25 [employer] CPT-00066 PT/INR - LAB USE ONLY 13:49:20 CDT CPT-23986 Venipuncture Draw Fee 13:49:19 CDT CPT-39018 PT/INR - LAB USE ONLY 15:48:49 CDT CPT-41122 Venipuncture Draw Fee 15:48:49 CDT CPT-63288 Venipuncture Draw Fee 11:31:59 CDT CPT-04958 PT/INR - LAB USE ONLY 11:31:59 CDT CPT-16992 Venipuncture Draw Fee 13:29:15 CDT CPT-71851 Thoracolumbar AP/Lat 15:19:19 [employer] CPT-G0438 Initial Annual Wellness Exam 12:18:54 [employer] CPT-79349 Knee 3V 09:57:38 CDT CPT-OV Office Visit 15:45:01 [employer] CPT-50641 Abd compl w upright 17:10:25 CDT
--- OUTSIDE RECORDS SUMMARY | 2018-07-18 10:58 | XMS REPORT | Clinical Summary ---
Author Author Admin, [employer] Organization [employer] Address Unknown Phone Unavailable Allergies, Adverse Reactions, [...] neoplasm of prostate V10.46 Active Alina Meyers [employer] Personal history of malignant neoplasm of prostate [...] po q hs for nerve pain GABAPENTIN 65103302662 Active Piotr Daley DO Active WARFARIN SODIUM 5 MG TABS 1 tablet daily WARFARIN SODIUM 04466088062 Active Simi Meyers Active TRAMADOL HCL 50 MG TABS 1 po tid with ES Tylenol TRAMADOL HCL 74140364152 Active Piotr Daley DO Active PREDNISONE 20 MG TAB 2 tablets today, then 1 tablet days 2 through 4 PREDNISONE 59466030958 No Longer Active Piotr Daley DO Active AZITHROMYCIN 250 MG TABS 2 po qd x 1 day, then 1 po qd x 4 days AZITHROMYCIN 09145044298 No Longer Active Piotr Daley DO Active IBUPROFEN 800 MG TABS 1 tab every 8 hours as needed IBUPROFEN 21925889359 No Longer Active Piotr Daley DO Active LOMOTIL 2.5-0.025 MG TAB 1 to 2 four times a day as needed for diarrhea 10/13 DIPHENOXYLATE-ATROPINE 39811277815 No Longer Active Piotr Daley DO Active WARFARIN SODIUM 4 MG TABS 1 tab every evening WARFARIN SODIUM 80880201404 No Longer Active Piotr Daley DO Active PREDNISONE 20 MG TAB 1 tablet twice daily for 2 days, then 1 tablet once daily for 2 days PREDNISONE 63350632327 No Longer Active Piotr Daley DO Active PROMETHAZINE HCL 25 MG TABS 1 four times a day as needed for nausea/vomiting PROMETHAZINE HCL 62515888925 No Longer Active Piotr Daley DO Active TUSSIONEX PENNKINETIC ER 10-8 MG/5ML LQCR 5ml po q12hr PRN Cough HYDROCOD POLST-CHLORPHEN POLST 80191417833 No Longer Active Piotr Daley DO Active AZITHROMYCIN 250 MG TABS 2 po qd x 1 day, then 1 po qd x 4 days AZITHROMYCIN 89429075445 No Longer Active Piotr Daley DO Active AZITHROMYCIN 250 MG TABS 2 po qd x 1 day, then 1 po qd x 4 days AZITHROMYCIN 10180628124 No Longer Active Piotr Daley DO Active LISINOPRIL-HYDROCHLOROTHIAZIDE 10-12.5 MG TABS 1 tab by mouth daily LISINOPRIL-HYDROCHLOROTHIAZIDE 82061192814 Active Hilary Ma MA Active LISINOPRIL 10 MG TABS 1/2-1 tab po every other day LISINOPRIL 93812528994 No Longer Active Piotr Daley DO Active VENTOLIN HFA 108 (90 BASE) MCG/ACT AERS 2 puffs four times a day PRN cough ALBUTEROL SULFATE 97105045250 No Longer Active Piotr Daley DO Active NYSTATIN-TRIAMCINOLONE 119625-3.1 UNIT/GM-% CREA Apply to area BID NYSTATIN-TRIAMCINOLONE 66045002658 No Longer Active Alena Chavira [employer] WORK[employer] Active PHISOHEX 3 % LIQD Use Directed HEXACHLOROPHENE 38748444258 No Longer Active Sandra [place] Active AZITHROMYCIN 250 MG TABS 2 po qd x 1 day, then 1 po qd x 4 days AZITHROMYCIN 51591890664 No Longer Active Katrina Rinaldi MD PhD Active AZITHROMYCIN 250 MG TABS 2 po qd x 1 day, then 1 po qd x 4 days AZITHROMYCIN 77227336552 No Longer Active Piotr Daley DO Active AZITHROMYCIN 500 MG SOLR 1 po q day AZITHROMYCIN 37712897387 No Longer Active Piotr Daley DO Active NYSTATIN-TRIAMCINOLONE 837602-3.1 UNIT/GM-% CREA apply bid 08/19 NYSTATIN-TRIAMCINOLONE 42003571367 No Longer Active Piotr Daley DO Active IBUPROFEN 800 MG TABS 1 po q 8 hours prn pain sparinly IBUPROFEN 67566200773 No Longer Active Piotr Daley DO Active VITAMIN D3 5000 UNIT CAPS 1 po daily CHOLECALCIFEROL 59058932620 Active Piotr Daley DO Active IBUPROFEN 800 MG TABS 1 po q 8 hours prn pain sparinly IBUPROFEN 800 MG TABS 126131 IBUPROFEN Inactive NYSTATIN-TRIAMCINOLONE 159760-1.1 UNIT/GM-% CREA apply bid 08/19 NYSTATIN-TRIAMCINOLONE 933475-7.1 UNIT/GM-% CREA 7704794 NYSTATIN- TRIAMCINOLONE Inactive AZITHROMYCIN 500 MG SOLR 1 po q day AZITHROMYCIN 500 MG SOLR 59554087175 AZITHROMYCIN Inactive VENTOLIN HFA 108 (90 BASE) MCG/ACT AERS 2 puffs four times a day PRN cough VENTOLIN HFA 108 (90 BASE) MCG/ACT AERS ALBUTEROL SULFATE Inactive LISINOPRIL 10 MG TABS 1/2-1 tab po every other day LISINOPRIL 10 MG TABS 561067 LISINOPRIL Inactive TUSSIONEX PENNKINETIC ER 10-8 MG/5ML LQCR 5ml po q12hr PRN Cough TUSSIONEX PENNKINETIC ER 10-8 MG/5ML LQCR HYDROCOD POLST- CHLORPHEN POLST Inactive PROMETHAZINE HCL 25 MG TABS 1 four times a day as needed for nausea/vomiting PROMETHAZINE HCL 25 MG TABS 622653 PROMETHAZINE HCL Inactive PREDNISONE 20 MG TAB 1 tablet twice daily for 2 days, then 1 tablet once daily for 2 days PREDNISONE 20 MG TAB 584803 PREDNISONE Inactive WARFARIN SODIUM 4 MG TABS 1 tab every evening WARFARIN SODIUM 4 MG TABS 822910 WARFARIN SODIUM Inactive LOMOTIL 2.5-0.025 MG TAB 1 to 2 four times a day as needed for diarrhea 10/13 LOMOTIL 2.5-0.025 MG TAB 2809310 DIPHENOXYLATE-ATROPINE Inactive IBUPROFEN 800 MG TABS 1 tab every 8 hours as needed IBUPROFEN 800 MG TABS 273280 IBUPROFEN Inactive PREDNISONE 20 MG TAB 2 tablets today, then 1 tablet days 2 through 4 PREDNISONE 20 MG TAB 711423 PREDNISONE Inactive AZITHROMYCIN 250 MG TABS 2 po qd x 1 day, then 1 po qd x 4 days AZITHROMYCIN 250 MG TABS 9287112 AZITHROMYCIN Inactive AZITHROMYCIN 250 MG TABS 2 po qd x 1 day, then 1 po qd x 4 days AZITHROMYCIN 250 MG TABS 0430662 AZITHROMYCIN Inactive NYSTATIN-TRIAMCINOLONE 452861-1.1 UNIT/GM-% CREA Apply to area BID NYSTATIN-TRIAMCINOLONE 150595-6.1 UNIT/GM-% CREA 1231973 NYSTATIN-TRIAMCINOLONE Inactive AZITHROMYCIN 250 MG TABS 2 po qd x 1 day, then 1 po qd x 4 days AZITHROMYCIN 250 MG TABS 6381692 AZITHROMYCIN Inactive AZITHROMYCIN 250 MG TABS 2 po qd x 1 day, then 1 po qd x 4 days AZITHROMYCIN 250 MG TABS 9893328 AZITHROMYCIN Inactive AZITHROMYCIN 250 MG TABS 2 po qd x 1 day, then 1 po qd x 4 days AZITHROMYCIN 250 MG TABS 4897825 AZITHROMYCIN Inactive Advance Directives Directive Description Start [...] Panel - Chemistry sodium, serum 141 mmol/L 571-712 6780/06/28 carbon dioxide, venous blood 31.0 mmol/L 21.0-32.0 [...] Negative Encounters Code Encounter Date Provider Facility CPT-62775 Level 4 Est. Patient 17:15:07 [employer]CTIONAL OFFICER CHIEF Piotr Daley [facility] CPT-10950 Level 3 Est. Patient 12:46:13 [employer]RECTIONAL OFFICER CHIEF Piotr Daley [facility] CPT-38960 Level 3 Est. Patient 15:14:31 [employer]RECTIONAL OFFICER CHIEF Piotr Daley [facility] CPT-13169 Level 3 Est. Patient 09:20:13 [employer]RECTIONAL OFFICER CHIEF Piotr Katie Edi [facility] CPT-27384 Level 3 Est. Patient 09:49:40 CDT Piotr Katie Edi [facility] CPT-23805 Level 3 Est. Patient 16:28:11 CDT Piotr Katie Edi [facility] CPT-51338 Level 3 Est. Patient 12:41:58 [employer]RECTIONAL OFFICER CHIEF Piotr Daley [facility] CPT-17254 Level 3 Est. Patient 09:21:24 CDT Piotr Wilson [facility] CPT-24815 Level 3 Est. Patient 09:21:11 CDT Piotr Daley [facility] CPT-95223 Level 3 Est. Patient 11:16:29 [employer]RECTIONAL OFFICER CHIEF Piotr Daley [facility] CPT-88982 Level 3 Est. Patient 18:40:19 [employer]RECTIONAL OFFICER CHIEF Piotr Daley [facility] CPT-13289 Level 3 Est. Patient 19:30:50 CDT Piotr Daley [facility] CPT-34678 Level 3 Est. Patient 22:06:44 CDT Katrina Rinaldi MD [facility] CPT-26658 Level 3 Est. Patient 14:20:00 CDT Piotr Daley [facility] CPT-90325 Level 3 Est. Patient 14:15:22 [employer]RECTIONAL OFFICER CHIEF Piotr Daley [facility] CPT-97237 Level 3 Est. Patient 20:19:57 [employer]RECTIONAL OFFICER CHIEF Piotr Daley [facility] CPT-33612 Level 3 Est. Patient 16:44:32 CDT Piotr Daley [facility] CPT-71677 Level 3 Est. Patient 08:48:46 [employer]RECTIONAL OFFICER CHIEF Piotr Daley [facility] CPT-32566 Level 3 Est. Patient 21:01:21 CDT Piotr Daley [facility] Procedures Code Procedure Name Date Entry Date Standard Description CPT-05859 Creatinine - LAB USE ONLY 14:37:55 [employer]ER CHIEF CPT-21442 PT/INR - LAB USE ONLY 14:37:55 [employer]AL [employer]ICER CHIEF CPT-68315 Venipuncture Draw Fee 14:37:55 [employer]RECTIONAL OFFICER CHIEF CPT-51032 LS spine comp w obliques - XRAY USE ONLY 12:59:25 [employer]RECTIONAL OFFICER CHIEF CPT-27425 PT/INR - LAB USE ONLY 13:49:20 CDT CPT-36242 Venipuncture Draw Fee 13:49:19 CDT CPT-05721 PT/INR - LAB USE ONLY 15:48:49 CDT CPT-37487 Venipuncture Draw Fee 15:48:49 CDT CPT-42803 Venipuncture Draw Fee 11:31:59 CDT CPT-33448 PT/INR - LAB USE ONLY 11:31:59 CDT CPT-34657 Venipuncture Draw Fee 13:29:15 CDT CPT-55134 Thoracolumbar AP/Lat 15:19:19 [employer]RECTIONAL OFFICER CHIEF CPT-G0438 Initial Annual Wellness Exam 12:18:54 [employer]RECTIONAL OFFICER CHIEF CPT-51392 Knee 3V 09:57:38 CDT CPT-OV Office Visit 15:45:01 [employer]RECTIONAL OFFICER CHIEF CPT-72254 Abd compl w upright 17:10:25 CDT
--- OUTSIDE RECORDS SUMMARY | 2018-07-18 10:58 | XMS REPORT | Clinical Summary ---
Author Author Admin, [employer] Address Unknown Phone Unavailable Allergies, Adverse Reactions, [...] Coronary atherosclerosis of unspecified type of vessel, qawalangin or graft Back pain, thoracic region, left [...] po q hs for nerve pain GABAPENTIN 15732513682 Active Piotr Daley DO Active WARFARIN SODIUM 5 MG TABS 1 tablet daily WARFARIN SODIUM 34416612803 Active Simi Meyers Active TRAMADOL HCL 50 MG TABS 1 po tid with ES Tylenol TRAMADOL HCL 91135736881 Active Piotr Daley DO Active PREDNISONE 20 MG TAB 2 tablets today, then 1 tablet days 2 through 4 PREDNISONE 77122289433 No Longer Active Piotr Daley DO Active AZITHROMYCIN 250 MG TABS 2 po qd x 1 day, then 1 po qd x 4 days AZITHROMYCIN 19236279641 No Longer Active Piotr Daley DO Active IBUPROFEN 800 MG TABS 1 tab every 8 hours as needed IBUPROFEN 54932467732 No Longer Active Piotr Daley DO Active LOMOTIL 2.5-0.025 MG TAB 1 to 2 four times a day as needed for diarrhea 10/13 DIPHENOXYLATE-ATROPINE 77968516528 No Longer Active Piotr Dalye DO Active WARFARIN SODIUM 4 MG TABS 1 tab every evening WARFARIN SODIUM 04692138413 No Longer Active Piotr Daley DO Active PREDNISONE 20 MG TAB 1 tablet twice daily for 2 days, then 1 tablet once daily for 2 days PREDNISONE 61697450211 No Longer Active Piotr Daley DO Active PROMETHAZINE HCL 25 MG TABS 1 four times a day as needed for nausea/vomiting PROMETHAZINE HCL 92324923163 No Longer Active Piotr Daley DO Active TUSSIONEX PENNKINETIC ER 10-8 MG/5ML LQCR 5ml po q12hr PRN Cough HYDROCOD POLST-CHLORPHEN POLST 24520782488 No Longer Active Piotr Daley DO Active AZITHROMYCIN 250 MG TABS 2 po qd x 1 day, then 1 po qd x 4 days AZITHROMYCIN 42971169902 No Longer Active Piotr Daley DO Active AZITHROMYCIN 250 MG TABS 2 po qd x 1 day, then 1 po qd x 4 days AZITHROMYCIN 59811167196 No Longer Active Piotr Daley DO Active LISINOPRIL-HYDROCHLOROTHIAZIDE 10-12.5 MG TABS 1 tab by mouth daily LISINOPRIL-HYDROCHLOROTHIAZIDE 06789679400 Active Simi Meyers Active LISINOPRIL 10 MG TABS 1/2-1 tab po every other day LISINOPRIL 51247766934 No Longer Active Piotr Daley DO Active VENTOLIN HFA 108 (90 BASE) MCG/ACT AERS 2 puffs four times a day PRN cough ALBUTEROL SULFATE 67612682857 No Longer Active Piotr Daley DO Active NYSTATIN-TRIAMCINOLONE 147197-8.1 UNIT/GM-% CREA Apply to area BID NYSTATIN-TRIAMCINOLONE 73186819571 No Longer Active Alena Chavira GRAVURE PRINTING MACHINIST Active PHISOHEX 3 % LIQD Use Directed HEXACHLOROPHENE 25247421357 No Longer Active Sandra [place] Active AZITHROMYCIN 250 MG TABS 2 po qd x 1 day, then 1 po qd x 4 days AZITHROMYCIN 04587383868 No Longer Active Katrina Rinaldi MD PhD Active AZITHROMYCIN 250 MG TABS 2 po qd x 1 day, then 1 po qd x 4 days AZITHROMYCIN 61726177338 No Longer Active Piotr Daley DO Active AZITHROMYCIN 500 MG SOLR 1 po q day AZITHROMYCIN 28981591743 No Longer Active Piotr Daley DO Active NYSTATIN-TRIAMCINOLONE 587933-7.1 UNIT/GM-% CREA apply bid 08/19 NYSTATIN-TRIAMCINOLONE 85653030422 No Longer Active Piotr Daley DO Active IBUPROFEN 800 MG TABS 1 po q 8 hours prn pain sparinly IBUPROFEN 82233312578 No Longer Active Piotr Dlaey DO Active VITAMIN D3 5000 UNIT CAPS 1 po daily CHOLECALCIFEROL 12881647008 Active Piotr Daley DO Active IBUPROFEN 800 MG TABS 1 po q 8 hours prn pain sparinly IBUPROFEN 800 MG TABS 576906 IBUPROFEN Inactive NYSTATIN-TRIAMCINOLONE 345377-8.1 UNIT/GM-% CREA apply bid 08/19 NYSTATIN-TRIAMCINOLONE 162732-5.1 UNIT/GM-% CREA 9754514 NYSTATIN- TRIAMCINOLONE Inactive AZITHROMYCIN 500 MG SOLR 1 po q day AZITHROMYCIN 500 MG SOLR 61858536386 AZITHROMYCIN Inactive VENTOLIN HFA 108 (90 BASE) MCG/ACT AERS 2 puffs four times a day PRN cough VENTOLIN HFA 108 (90 BASE) MCG/ACT AERS ALBUTEROL SULFATE Inactive LISINOPRIL 10 MG TABS 1/2-1 tab po every other day LISINOPRIL 10 MG TABS 298930 LISINOPRIL Inactive TUSSIONEX PENNKINETIC ER 10-8 MG/5ML LQCR 5ml po q12hr PRN Cough TUSSIONEX PENNKINETIC ER 10-8 MG/5ML LQCR HYDROCOD POLST- CHLORPHEN POLST Inactive PROMETHAZINE HCL 25 MG TABS 1 four times a day as needed for nausea/vomiting PROMETHAZINE HCL 25 MG TABS 662189 PROMETHAZINE HCL Inactive PREDNISONE 20 MG TAB 1 tablet twice daily for 2 days, then 1 tablet once daily for 2 days PREDNISONE 20 MG TAB 484638 PREDNISONE Inactive WARFARIN SODIUM 4 MG TABS 1 tab every evening WARFARIN SODIUM 4 MG TABS 156664 WARFARIN SODIUM Inactive LOMOTIL 2.5-0.025 MG TAB 1 to 2 four times a day as needed for diarrhea 10/13 LOMOTIL 2.5-0.025 MG TAB 5912613 DIPHENOXYLATE-ATROPINE Inactive IBUPROFEN 800 MG TABS 1 tab every 8 hours as needed IBUPROFEN 800 MG TABS 175504 IBUPROFEN Inactive PREDNISONE 20 MG TAB 2 tablets today, then 1 tablet days 2 through 4 PREDNISONE 20 MG TAB 496704 PREDNISONE Inactive AZITHROMYCIN 250 MG TABS 2 po qd x 1 day, then 1 po qd x 4 days AZITHROMYCIN 250 MG TABS 9394219 AZITHROMYCIN Inactive AZITHROMYCIN 250 MG TABS 2 po qd x 1 day, then 1 po qd x 4 days AZITHROMYCIN 250 MG TABS 5611251 AZITHROMYCIN Inactive NYSTATIN-TRIAMCINOLONE 370692-8.1 UNIT/GM-% CREA Apply to area BID NYSTATIN-TRIAMCINOLONE 909256-6.1 UNIT/GM-% CREA 3417276 NYSTATIN-TRIAMCINOLONE Inactive AZITHROMYCIN 250 MG TABS 2 po qd x 1 day, then 1 po qd x 4 days AZITHROMYCIN 250 MG TABS 7319311 AZITHROMYCIN Inactive AZITHROMYCIN 250 MG TABS 2 po qd x 1 day, then 1 po qd x 4 days AZITHROMYCIN 250 MG TABS 3491226 AZITHROMYCIN Inactive AZITHROMYCIN 250 MG TABS 2 po qd x 1 day, then 1 po qd x 4 days AZITHROMYCIN 250 MG TABS 0244681 AZITHROMYCIN Inactive Advance Directives Directive Description Start Date LIVING WILL LIVING WILL Vital Signs Date Name Value Unit Range Description blood pressure, diastolic - 8462-4 69 mm[Hg] BP phna blood pressure, systolic - 8480-6 117 mm[Hg] [...] Panel - Chemistry sodium, serum 141 mmol/L 087-998 0363/06/28 carbon dioxide, venous blood 31.0 mmol/L [...] 1.0-3.5 Encounters Code Encounter Date Provider Facility CPT-29271 Level 4 Est. Patient 17:15:07 CHEMICAL OPERATIONS SPECIALIST Piotr Daley DO [facility] CPT-07721 Level 3 Est. Patient 12:46:13 CHEMICAL OPERATIONS SPECIALIST Piotr Daley [facility] CPT-57763 Level 3 Est. Patient 15:14:31 CHEMICAL OPERATIONS SPECIALIST iPotr Daley DO [facility] CPT-38771 Level 3 Est. Patient 09:20:13 CHEMICAL OPERATIONS SPECIALIST Piotr Daley DO [facility] CPT-44256 Level 3 Est. Patient 09:49:40 CDT Piotr Daley [facility] CPT-15102 Level 3 Est. Patient 16:28:[address] [facility] CPT-26138 Level 3 Est. Patient 12:41:58 CHEMICAL OPERATIONS SPECIALIST Piotr Daley [facility] CPT-75605 Level 3 Est. Patient 09:21:24 CDT Piotr Daley [facility] CPT-04900 Level 3 Est. Patient 09:21:11 CDT Piotr Daley [facility] CPT-97838 Level 3 Est. Patient 11:16:29 CHEMICAL OPERATIONS SPECIALIST Piotr Daley [facility] CPT-30277 Level 3 Est. Patient 18:40:19 CHEMICAL OPERATIONS SPECIALIST Piotr Daley [facility] CPT-76684 Level 3 Est. Patient 19:30:[address] [facility] CPT-82530 Level 3 Est. Patient 22:06:44 CDT Katrina Rinaldi MD [facility] CPT-44325 Level 3 Est. Patient 14:20:[address] [facility] CPT-72159 Level 3 Est. Patient 14:15:22 CHEMICAL OPERATIONS SPECIALIST Piotr Daley [facility] CPT-28885 Level 3 Est. Patient 20:19:57 CHEMICAL OPERATIONS SPECIALIST Piotr Wilson Edi [facility] CPT-00412 Level 3 Est. Patient 16:44:32 CDT Piotr Katie Ed[facility] CPT-02110 Level 3 Est. Patient 08:48:46 CHEMICAL OPERATIONS SPECIALIST Piotr Daley [facility] CPT-14591 Level 3 Est. Patient 21:01:[address] [facility] Procedures Code Procedure Name Date Entry Date Standard Description CPT-64177 PT/INR - LAB USE ONLY 08:12:25 CHEMICAL OPERATIONS SPECIALIST CPT-10350 Venipuncture Draw Fee 08:12:24 CHEMICAL OPERATIONS SPECIALIST CPT-08045 Venipuncture Draw Fee 11:31:07 CHEMICAL OPERATIONS SPECIALIST CPT-29083 TPSA - LAB USE ONLY 11:31:07 CHEMICAL OPERATIONS SPECIALIST CPT-81236 PT/INR - LAB USE ONLY 11:31:07 [facility] CPT-G0439 Subsequent Annual Wellness Exam 09:59:29 CHEMICAL OPERATIONS SPECIALIST CPT-94844 Creatinine - LAB USE ONLY 14:37:55 CHEMICAL OPERATIONS SPECIALIST CPT-77861 PT/INR - LAB USE ONLY 14:37:55 CHEMICAL OPERATIONS SPECIALIST CPT-48072 Venipuncture Draw Fee 14:37:55 CHEMICAL OPERATIONS SPECIALIST CPT-91294 LS spine comp w obliques - XRAY USE ONLY 12:59:25 [facility] CPT-16372 PT/INR - LAB USE ONLY 13:49:20 CDT CPT-04899 Venipuncture Draw Fee 13:49:19 CDT CPT-16199 PT/INR - LAB USE ONLY 15:48:49 CDT CPT-12399 Venipuncture Draw Fee 15:48:49 CDT CPT-41572 Venipuncture Draw Fee 11:31:59 CDT CPT-38272 PT/INR - LAB USE ONLY 11:31:59 CDT CPT-11522 Venipuncture Draw Fee 13:29:15 CDT CPT-31495 Thoracolumbar AP/Lat 15:19:19 [facility] CPT-G0438 Initial Annual Wellness Exam 12:18:54 CHEMICAL OPERATIONS SPECIALIST CPT-50726 Knee 3V 09:57:38 CDT CPT-OV Office Visit 15:45:01 CHEMICAL OPERATIONS SPECIALIST CPT-48459 Abd compl w upright 17:10:25 CDT
--- OUTSIDE RECORDS SUMMARY | 2018-07-18 10:59 | XMS REPORT | Clinical Summary ---
Author Author Admin, [employer] Address Unknown Phone Unavailable Allergies, Adverse [...] neoplasm of prostate V10.46 Active Alina Meyers CERTIFIED SURGICAL ASSISTANT Personal history of malignant neoplasm of prostate Coronary artery disease 414.00 Active Alina Meyers APRN Coronary atherosclerosis of unspecified type of vessel, yuhaaviatam or graft Back pain, thoracic region, left [...] Knee pain, left ICD-719.46 Inactive Sirisha Chen [employer] Actinic keratoses ICD-702.0 Inactive Sirisha Chen [employer] Back pain, thoracic region, left ICD-724.1 Inactive Piotr Daley DO Thoracic back pain ICD-724.5 Inactive Sirisha Chen [employer] Back pain lumbar ICD-724.2 Inactive Sirisha Chen [employer] Insect bite ICD-919.4 Inactive Sirisha Chen [employer] Pruritus ICD-698.9 Inactive Sirisha Chen [employer] 04/09 Bronchitis-Acute ICD-466.0 Inactive Sirisha Chen [employer] Dyspnea ICD-786.09 Inactive Sirisha Chen [employer] 05/09 Medication List Medication Instructions Start Date Stop Date Generic Name NDC Status Provider Patient Instruction WARFARIN SODIUM 4 MG ORAL TABLET 1 tablet by mouth daily except 2mg on Saturday and Saturday WARFARIN SODIUM 55070528256 Active Anahy Loja Active MELOXICAM 15 MG ORAL TABLET 1 po q day for pain with food MELOXICAM 84841814139 Active Piotr Daley DO Active PREDNISONE 10 MG ORAL TABLET 1 tablet by mouth daily PREDNISONE 60688613377 No Longer Active Emelyn Norris Active TESSALON PERLES 100 MG ORAL CAPSULE 1-2 tablet by mouth 3 times daily 04/16 BENZONATATE 66808574438 No Longer Active Emelyn Norris Active PREDNISONE 20 MG ORAL TABLET two tabs by mouth today, then one tab by mouth days two and three PREDNISONE 34456995947 No Longer Active Piotr Daley DO Active CYCLOBENZAPRINE HCL 10 MG ORAL TABLET 1 tablet by mouth three times daily as needed for muscle spasm/pain CYCLOBENZAPRINE HCL 27490255736 Active Sirisha Chen LPN Active ZITHROMAX 250 MG ORAL TABLET Take two (2 ) tablets day one, then one (1) tablet a day for four (4) more days AZITHROMYCIN 54030748477 No Longer Active Piotr Daley DO Active PROAIR HFA 108 (90 BASE) MCG/ACT INHALATION AEROSOL SOLUTION 1-2 puffs four times a day as needed ALBUTEROL SULFATE 32892516259 No Longer Active Emelyn Norris Active DOXYCYCLINE HYCLATE 100 MG ORAL CAPSULE 1 cap by mouth BID x10 days DOXYCYCLINE HYCLATE 99800537851 No Longer Active Nella Harris APRN Active PREDNISONE 20 MG ORAL TABLET 2 tabs daily for 3 days, 1 tab daily for 3 days, 1/2 tab daily for 2 days PREDNISONE 16715941794 No Longer Active Matthew Rangel MD Active TRAMADOL HCL 50 MG ORAL TABLET 1 po tid with ES Tylenol TRAMADOL HCL 46314072427 No Longer Active Matthew Rangel MD Active GABAPENTIN 300 MG ORAL CAPSULE 1 po q hs for nerve pain GABAPENTIN 39963612722 No Longer Active Matthew Rangel MD Active PREDNISONE 20 MG ORAL TABLET 2 tablets today, then 1 tablet days 2 through 4 PREDNISONE 92953006299 No Longer Active Piotr Daley DO Active AZITHROMYCIN 250 MG ORAL TABLET 2 po qd x 1 day, then 1 po qd x 4 days 07/12 AZITHROMYCIN 74291201271 No Longer Active Piotr Daley DO Active IBUPROFEN 800 MG ORAL TABLET 1 tab every 8 hours as needed 07/12 IBUPROFEN 98639101808 No Longer Active Piotr Daley DO Active LOMOTIL 2.5-0.025 MG ORAL TABLET 1 to 2 four times a day as needed for diarrhea DIPHENOXYLATE-ATROPINE 31488640676 No Longer Active Piotr Daley DO Active WARFARIN SODIUM 4 MG ORAL TABLET 1 tab every evening WARFARIN SODIUM 42542508470 No Longer Active Piotr Daley DO Active PREDNISONE 20 MG ORAL TABLET 1 tablet twice daily for 2 days, then 1 tablet once daily for 2 days PREDNISONE 95649696839 No Longer Active Piotr Daley DO Active PROMETHAZINE HCL 25 MG ORAL TABLET 1 four times a day as needed for nausea/ vomiting PROMETHAZINE HCL 04145204201 No Longer Active Piotr Daley DO Active TUSSIONEX PENNKINETIC ER 10-8 MG/5ML ORAL SUSPENSION EXTENDED RELEASE 5ml po q12hr PRN Cough HYDROCOD POLST-CHLORPHEN POLST 91987342294 No Longer Active Piotr Daley DO Active AZITHROMYCIN 250 MG ORAL TABLET 2 po qd x 1 day, then 1 po qd x 4 days 10/13 AZITHROMYCIN 04897366331 No Longer Active Piotr Daley DO Active AZITHROMYCIN 250 MG ORAL TABLET 2 po qd x 1 day, then 1 po qd x 4 days 05/07 AZITHROMYCIN 50763364332 No Longer Active Piotr Daley DO Active LISINOPRIL-HYDROCHLOROTHIAZIDE 10-12.5 MG ORAL TABLET 1 tab by mouth daily LISINOPRIL-HYDROCHLOROTHIAZIDE 48660415228 Active Piotr Daley DO Active LISINOPRIL 10 MG ORAL TABLET 1/2-1 tab po every other day LISINOPRIL 95094717600 No Longer Active Piotr Daley DO Active VENTOLIN HFA 108 (90 Base) MCG/ACT INHALATION AEROSOL SOLUTION 2 puffs four times a day PRN cough ALBUTEROL SULFATE 24980061962 No Longer Active Piotr Daley DO Active NYSTATIN-TRIAMCINOLONE 895962-2.1 UNIT/GM-% EXTERNAL CREAM Apply to area BID NYSTATIN-TRIAMCINOLONE 42788456899 No Longer Active Alena Chavira [employer] Active PHISOHEX 3 % LIQD Use Directed HEXACHLOROPHENE 63374941207 No Longer Active Sandra Cosby Active AZITHROMYCIN 250 MG ORAL TABLET 2 po qd x 1 day, then 1 po qd x 4 days 10/21 AZITHROMYCIN 43623130879 No Longer Active Katrina Rinaldi MD PhD Active AZITHROMYCIN 250 MG ORAL TABLET 2 po qd x 1 day, then 1 po qd x 4 days 10/16 AZITHROMYCIN 24324773703 No Longer Active Piotr Daley DO Active AZITHROMYCIN 500 MG INTRAVENOUS SOLUTION RECONSTITUTED 1 po q day AZITHROMYCIN 91231787868 No Longer Active Piotr Daley DO Active NYSTATIN-TRIAMCINOLONE 652174-8.1 UNIT/GM-% EXTERNAL CREAM apply bid NYSTATIN-TRIAMCINOLONE 71171184033 No Longer Active Piotr Daley DO Active IBUPROFEN 800 MG ORAL TABLET 1 po q 8 hours prn pain sparinly IBUPROFEN 99470627419 No Longer Active Piotr Daley DO Active VITAMIN D3 5000 UNIT ORAL CAPSULE 1 po daily CHOLECALCIFEROL 31201526451 Active Piotr Daley DO Active IBUPROFEN 800 MG ORAL TABLET 1 po q 8 hours prn pain sparinly IBUPROFEN 800 MG ORAL TABLET 552668 IBUPROFEN Inactive NYSTATIN-TRIAMCINOLONE 305601-7.1 UNIT/GM-% EXTERNAL CREAM apply bid NYSTATIN-TRIAMCINOLONE 806088-8.1 UNIT/GM-% EXTERNAL CREAM 7423905 NYSTATIN-TRIAMCINOLONE Inactive AZITHROMYCIN 500 MG INTRAVENOUS SOLUTION RECONSTITUTED 1 po q day AZITHROMYCIN 500 MG INTRAVENOUS SOLUTION RECONSTITUTED 36261503486 AZITHROMYCIN Inactive VENTOLIN HFA 108 (90 Base) MCG/ACT INHALATION AEROSOL SOLUTION 2 puffs four times a day PRN cough VENTOLIN HFA 108 (90 Base) MCG/ ACT INHALATION AEROSOL SOLUTION ALBUTEROL SULFATE Inactive LISINOPRIL 10 MG ORAL TABLET 1/2-1 tab po every other day LISINOPRIL 10 MG ORAL TABLET 047496 LISINOPRIL Inactive TUSSIONEX PENNKINETIC ER 10-8 MG/5ML ORAL SUSPENSION EXTENDED RELEASE 5ml po q12hr PRN Cough TUSSIONEX PENNKINETIC ER 10-8 MG/5ML ORAL SUSPENSION EXTENDED RELEASE HYDROCOD POLST-CHLORPHEN POLST Inactive PROMETHAZINE HCL 25 MG ORAL TABLET 1 four times a day as needed for nausea/ vomiting PROMETHAZINE HCL 25 MG ORAL TABLET 290035 PROMETHAZINE HCL Inactive PREDNISONE 20 MG ORAL TABLET 1 tablet twice daily for 2 days, then 1 tablet once daily for 2 days PREDNISONE 20 MG ORAL TABLET 880584 PREDNISONE Inactive WARFARIN SODIUM 4 MG ORAL TABLET 1 tab every evening WARFARIN SODIUM 4 MG ORAL TABLET 692338 WARFARIN SODIUM Inactive LOMOTIL 2.5-0.025 MG ORAL TABLET 1 to 2 four times a day as needed for diarrhea LOMOTIL 2.5-0.025 MG ORAL TABLET 6829716 DIPHENOXYLATE-ATROPINE Inactive IBUPROFEN 800 MG ORAL TABLET 1 tab every 8 hours as needed 07/12 IBUPROFEN 800 MG ORAL TABLET 846786 IBUPROFEN Inactive PREDNISONE 20 MG ORAL TABLET 2 tablets today, then 1 tablet days 2 through 4 PREDNISONE 20 MG ORAL TABLET 780993 PREDNISONE Inactive GABAPENTIN 300 MG ORAL CAPSULE 1 po q hs for nerve pain GABAPENTIN 300 MG ORAL CAPSULE 655716 GABAPENTIN Inactive TRAMADOL HCL 50 MG ORAL TABLET 1 po tid with ES Tylenol TRAMADOL HCL 50 MG ORAL TABLET 509073 TRAMADOL HCL Inactive PROAIR HFA 108 (90 BASE) MCG/ACT INHALATION AEROSOL SOLUTION 1-2 puffs four times a day as needed PROAIR HFA 108 (90 BASE) MCG/ACT INHALATION AEROSOL SOLUTION ALBUTEROL SULFATE Inactive PREDNISONE 20 MG ORAL TABLET two tabs by mouth today, then one tab by mouth days two and three PREDNISONE 20 MG ORAL TABLET 256749 PREDNISONE Inactive TESSALON PERLES 100 MG ORAL CAPSULE 1-2 tablet by mouth 3 times daily 04/16 TESSALON PERLES 100 MG ORAL CAPSULE 475399 BENZONATATE Inactive PREDNISONE 10 MG ORAL TABLET 1 tablet by mouth daily PREDNISONE 10 MG ORAL TABLET 933243 PREDNISONE Inactive AZITHROMYCIN 250 MG ORAL TABLET 2 po qd x 1 day, then 1 po qd x 4 days 10/16 AZITHROMYCIN 250 MG ORAL TABLET 801263 AZITHROMYCIN Inactive AZITHROMYCIN 250 MG ORAL TABLET 2 po qd x 1 day, then 1 po qd x 4 days 10/21 AZITHROMYCIN 250 MG ORAL TABLET 710865 AZITHROMYCIN Inactive NYSTATIN-TRIAMCINOLONE 949211-7.1 UNIT/GM-% EXTERNAL CREAM Apply to area BID NYSTATIN-TRIAMCINOLONE 205849-5.1 UNIT/GM-% EXTERNAL CREAM 6569890 NYSTATIN-TRIAMCINOLONE Inactive AZITHROMYCIN 250 MG ORAL TABLET 2 po qd x 1 day, then 1 po qd x 4 days 05/07 AZITHROMYCIN 250 MG ORAL TABLET 497648 AZITHROMYCIN Inactive AZITHROMYCIN 250 MG ORAL TABLET 2 po qd x 1 day, then 1 po qd x 4 days 10/13 AZITHROMYCIN 250 MG ORAL TABLET 769776 AZITHROMYCIN Inactive AZITHROMYCIN 250 MG ORAL TABLET 2 po qd x 1 day, then 1 po qd x 4 days 07/12 AZITHROMYCIN 250 MG ORAL TABLET 355612 AZITHROMYCIN Inactive PREDNISONE 20 MG ORAL TABLET 2 tabs daily for 3 days, 1 tab daily for 3 days, 1/2 tab daily for 2 days PREDNISONE 20 MG ORAL TABLET 868981 PREDNISONE Inactive DOXYCYCLINE HYCLATE 100 MG ORAL CAPSULE 1 cap by mouth BID x10 days DOXYCYCLINE HYCLATE 100 MG ORAL CAPSULE 1295272 DOXYCYCLINE HYCLATE Inactive ZITHROMAX 250 MG ORAL TABLET Take two (2 ) tablets day one, then one (1) tablet a day for four (4) more days ZITHROMAX 250 MG ORAL TABLET 592717 AZITHROMYCIN Inactive Advance Directives Directive Description Start [...] % 11.0-15.0 platelet count 172 THOUSAND/UL 10*3/mm3 971-881 9046/04/12 mean platelet volume 8.6 fL 7.5-12.5 mean corpuscular volume, RBC 83.9 fL 80.0-100.0 hematocrit, blood 43.0 % 38.5-50.0 hemoglobin, blood 14.4 g/dL 13.2-17.1 erythrocyte (RBC) count 5.13 MILLION/UL 10*6/mm3 4.20-5.80 leukocyte count, blood 5.4 THOUSAND/UL 10*3/mm3 3.8-10.8 Lab Report: Prothrombin Time Hemochron - Coagulation prothrombin time (patient) 33.0 SECS s 18.9-24.9 Encounters Code Encounter Date Provider Facility CPT-98990 Level 3 Est. Patient 15:59:25 RESIDENTIAL APPRAISER Piotr Daley [facility] CPT-34971 Level 3 Est. Patient 12:33:59 RESIDENTIAL APPRAISER Piotr Daley [facility] CPT-78917 Level 3 Est. Patient 15:56:17 RESIDENTIAL APPRAISER Piotr Daley [facility] CPT-53348 Level 3 Est. Patient 10:34:54 RESIDENTIAL APPRAISER Piotr Daley [facility] CPT-45398 Level 3 Est. Patient 17:10:19 MALACHI Harris APRN [facility] CPT-21318 Level 3 Est. Patient 10:48:17 RESIDENTIAL APPRAISER Matthew Rangel MD [facility] CPT-72793 Level 4 Est. Patient 17:15:07 RESIDENTIAL APPRAISER Piotr Daley [facility] CPT-76050 Level 3 Est. Patient 12:46:13 RESIDENTIAL APPRAISER Piotr Daley [facility] CPT-41104 Level 3 Est. Patient 15:14:31 RESIDENTIAL APPRAISER Piotr Katie Daley [facility] CPT-21048 Level 3 Est. Patient 09:20:13 RESIDENTIAL APPRAISER Piotr Daley [facility] CPT-91267 Level 3 Est. Patient 09:49:[address] [facility] CPT-83467 Level 3 Est. Patient 16:28:11 CDT Piotr Daley [facility] CPT-35950 Level 3 Est. Patient 12:41:58 RESIDENTIAL APPRAISER Piotr Daley [facility] CPT-54230 Level 3 Est. Patient 09:21:[address] [facility] CPT-91080 Level 3 Est. Patient 09:21:[address] [facility] CPT-80489 Level 3 Est. Patient 11:16:29 RESIDENTIAL APPRAISER Piotr Daley [facility] CPT-82456 Level 3 Est. Patient 18:40:19 RESIDENTIAL APPRAISER Piotr Daley [facility] CPT-85150 Level 3 Est. Patient 19:30:50 CDT Piotr Daley [facility] CPT-52792 Level 3 Est. Patient 22:06:44 CDT Katrina Rinaldi MD PhD [facility]-19632 Level 3 Est. Patient 14:20:00 CDT Piotr Daley [facility] CPT-82725 Level 3 Est. Patient 14:15:22 RESIDENTIAL APPRAISER Piotr Daley [facility] CPT-81775 Level 3 Est. Patient 20:19:57 RESIDENTIAL APPRAISER Piotr Daley [facility] CPT-57772 Level 3 Est. Patient 16:44:32 CDT Piotr Daley [facility] CPT-91493 Level 3 Est. Patient 08:48:46 RESIDENTIAL APPRAISER Piotr Daley [facility] CPT-06371 Level 3 Est. Patient 21:01:21 CDT Piotr Daley [facility] Procedures Code Procedure Name Date Entry Date Standard Description CPT-75098 Sacroiliac jt < 3V - XRAY USE ONLY 16:45:19 RESIDENTIAL APPRAISER 05/09 CPT-28164 LS spine comp w obliques - XRAY USE ONLY 14:52:26 RESIDENTIAL APPRAISER CPT-12942 Chest, 2 views 12:55:58 RESIDENTIAL APPRAISER CPT-G0439 Subsequent Annual Wellness Exam 10:34:52 RESIDENTIAL APPRAISER CPT-41703 BMP - LAB USE ONLY 17:19:11 RESIDENTIAL APPRAISER CPT-33292 PT/INR - LAB USE ONLY 17:19:10 [facility] CPT-73204 Venipuncture Draw Fee 17:19:10 [facility] CPT-07610 PT/INR - LAB USE ONLY 08:12:25 RESIDENTIAL APPRAISER CPT-56901 Venipuncture Draw Fee 08:12:24 RESIDENTIAL APPRAISER CPT-14950 Venipuncture Draw Fee 11:31:07 RESIDENTIAL APPRAISER CPT-40309 TPSA - LAB USE ONLY 11:31:07 RESIDENTIAL APPRAISER CPT-78316 PT/INR - LAB USE ONLY 11:31:07 RESIDENTIAL APPRAISER CPT-G0439 Subsequent Annual Wellness Exam 09:59:29 RESIDENTIAL APPRAISER CPT-90568 Creatinine - LAB USE ONLY 14:37:55 RESIDENTIAL APPRAISER CPT-88458 PT/INR - LAB USE ONLY 14:37:55 RESIDENTIAL APPRAISER CPT-59192 Venipuncture Draw Fee 14:37:55 RESIDENTIAL APPRAISER CPT-13080 LS spine comp w obliques - XRAY USE ONLY 12:59:25 RESIDENTIAL APPRAISER CPT-24909 PT/INR - LAB USE ONLY 13:49:20 CDT CPT-07424 Venipuncture Draw Fee 13:49:19 CDT CPT-55928 PT/INR - LAB USE ONLY 15:48:49 CDT CPT-57030 Venipuncture Draw Fee 15:48:49 CDT CPT-10297 Venipuncture Draw Fee 11:31:59 CDT CPT-36369 PT/INR - LAB USE ONLY 11:31:59 CDT CPT-22421 Venipuncture Draw Fee 13:29:15 CDT CPT-20529 Thoracolumbar AP/Lat 15:19:19 RESIDENTIAL APPRAISER CPT-G0438 Initial Annual Wellness Exam 12:18:54 RESIDENTIAL APPRAISER CPT-52266 Knee 3V 09:57:38 CDT CPT-OV Office Visit 15:45:01 RESIDENTIAL APPRAISER CPT-02354 Abd compl w upright 17:10:25 CDT
--- OUTSIDE RECORDS SUMMARY | 2018-07-18 11:00 | XMS REPORT | Clinical Summary ---
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 Personal history of malignant neoplasm of prostate Coronary artery disease 414.00 Active Alina Luigi ARISTIDES Coronary atherosclerosis of unspecified type of vessel, twenty-nine palms or graft Back pain, thoracic region, left 724.1 Inactive Piotr Daley DO Pain in thoracic spine Thoracic back pain 724.5 Active Piotr Wilson Edi DO Backache, unspecified Back pain lumbar 724.2 Active Piotr Daley DO Lumbago Peripheral neuropathy, lower extremity, left 356.9 Active 02/19 Piotr W Edi DO Unspecified hereditary and idiopathic peripheral neuropathy Insect bite 919.4 Active Nella Harris NEEDLE BOARD REPAIRER Insect bite, nonvenomous, of other, multiple, and unspecified sites, without mention of infection Pruritus 698.9 Active Nella Harris NEEDLE BOARD REPAIRER Unspecified pruritic disorder FLANK PAIN, RIGHT ICD-789.09 [...] mouth BID x10 days 10/01 DOXYCYCLINE HYCLATE 15402519799 No Longer Active Nella Harris APRN Active WARFARIN SODIUM 5 MG TABS 1 tablet daily M-S, 1/2 tab on Heart WARFARIN SODIUM 43130613408 Active Anahy Loja Active PROAIR HFA 108 (90 BASE) MCG/ACT AERS 1-2 puffs four times a day as needed ALBUTEROL SULFATE 20775330959 Active Matthew Rangel MD Active PREDNISONE 20 MG TAB 2 tabs daily for 3 days, 1 tab daily for 3 days, 1/2 tab daily for 2 days PREDNISONE 05066367661 No Longer Active Matthew Rangel MD Active TRAMADOL HCL 50 MG TABS 1 po tid with ES Tylenol TRAMADOL HCL 01673317788 No Longer Active Matthew Rangel MD Active GABAPENTIN 300 MG CAPS 1 po q hs for nerve pain GABAPENTIN 04592025376 No Longer Active Matthew Rangel MD Active PREDNISONE 20 MG TAB 2 tablets today, then 1 tablet days 2 through 4 PREDNISONE 84400781245 No Longer Active Piotr Daley DO Active AZITHROMYCIN 250 MG TABS 2 po qd x 1 day, then 1 po qd x 4 days AZITHROMYCIN 64886787964 No Longer Active Piotr Daley DO Active IBUPROFEN 800 MG TABS 1 tab every 8 hours as needed IBUPROFEN 20291287798 No Longer Active Piotr Daley DO Active LOMOTIL 2.5-0.025 MG TAB 1 to 2 four times a day as needed for diarrhea 10/13 DIPHENOXYLATE-ATROPINE 68920370304 No Longer Active Piotr Daley DO Active WARFARIN SODIUM 4 MG TABS 1 tab every evening WARFARIN SODIUM 78065496105 No Longer Active Piotr Daley DO Active PREDNISONE 20 MG TAB 1 tablet twice daily for 2 days, then 1 tablet once daily for 2 days PREDNISONE 99551332336 No Longer Active Piotr Daley DO Active PROMETHAZINE HCL 25 MG TABS 1 four times a day as needed for nausea/vomiting PROMETHAZINE HCL 03631691930 No Longer Active Piotr Daley DO Active TUSSIONEX PENNKINETIC ER 10-8 MG/5ML LQCR 5ml po q12hr PRN Cough HYDROCOD POLST-CHLORPHEN POLST 99638157169 No Longer Active Piotr Daley DO Active AZITHROMYCIN 250 MG TABS 2 po qd x 1 day, then 1 po qd x 4 days AZITHROMYCIN 64598709095 No Longer Active Piotr Daley DO Active AZITHROMYCIN 250 MG TABS 2 po qd x 1 day, then 1 po qd x 4 days AZITHROMYCIN 50910935810 No Longer Active Piotr Daley DO Active LISINOPRIL-HYDROCHLOROTHIAZIDE 10-12.5 MG TABS 1 tab by mouth daily LISINOPRIL-HYDROCHLOROTHIAZIDE 18539537531 Active Catalina Freitas Active LISINOPRIL 10 MG TABS 1/2-1 tab po every other day LISINOPRIL 84766279808 No Longer Active Piotr W Edi DO Active VENTOLIN HFA 108 (90 BASE) MCG/ACT AERS 2 puffs four times a day PRN cough ALBUTEROL SULFATE 19513534176 No Longer Active Piotr Daley DO Active NYSTATIN-TRIAMCINOLONE 999037-8.1 UNIT/GM-% CREA Apply to area BID NYSTATIN-TRIAMCINOLONE 17785230094 No Longer Active Alena Oswaldum SHEET CUTTING OPERATOR Active PHISOHEX 3 % LIQD Use Directed HEXACHLOROPHENE 14606615706 No Longer Active Sandra Belhaven Active AZITHROMYCIN 250 MG TABS 2 po qd x 1 day, then 1 po qd x 4 days AZITHROMYCIN 11074976828 No Longer Active Katrina Rinaldi MD PhD Active AZITHROMYCIN 250 MG TABS 2 po qd x 1 day, then 1 po qd x 4 days AZITHROMYCIN 27194520982 No Longer Active Piotr Daley DO Active AZITHROMYCIN 500 MG SOLR 1 po q day AZITHROMYCIN 75144939232 No Longer Active Piotr Daley DO Active NYSTATIN-TRIAMCINOLONE 863520-7.1 UNIT/GM-% CREA apply bid 08/19 NYSTATIN-TRIAMCINOLONE 49829821959 No Longer Active Piotr Daley DO Active IBUPROFEN 800 MG TABS 1 po q 8 hours prn pain sparinly IBUPROFEN 17523400539 No Longer Active Piotr Daley DO Active VITAMIN D3 5000 UNIT CAPS 1 po daily CHOLECALCIFEROL 55524558529 Active Piotr Daley DO Active IBUPROFEN 800 MG TABS 1 po q 8 hours prn pain sparinly IBUPROFEN 800 MG TABS 197869 IBUPROFEN Inactive NYSTATIN-TRIAMCINOLONE 498596-0.1 UNIT/GM-% CREA apply bid 08/19 NYSTATIN-TRIAMCINOLONE 567164-0.1 UNIT/GM-% CREA 4511558 NYSTATIN- TRIAMCINOLONE Inactive AZITHROMYCIN 500 MG SOLR 1 po q day AZITHROMYCIN 500 MG SOLR 49335191168 AZITHROMYCIN Inactive VENTOLIN HFA 108 (90 BASE) MCG/ACT AERS 2 puffs four times a day PRN cough VENTOLIN HFA 108 (90 BASE) MCG/ACT AERS ALBUTEROL SULFATE Inactive LISINOPRIL 10 MG TABS 1/2-1 tab po every other day LISINOPRIL 10 MG TABS 424059 LISINOPRIL Inactive TUSSIONEX PENNKINETIC ER 10-8 MG/5ML LQCR 5ml po q12hr PRN Cough TUSSIONEX PENNKINETIC ER 10-8 MG/5ML LQCR HYDROCOD POLST- CHLORPHEN POLST Inactive PROMETHAZINE HCL 25 MG TABS 1 four times a day as needed for nausea/vomiting PROMETHAZINE HCL 25 MG TABS 426052 PROMETHAZINE HCL Inactive PREDNISONE 20 MG TAB 1 tablet twice daily for 2 days, then 1 tablet once daily for 2 days PREDNISONE 20 MG TAB 564220 PREDNISONE Inactive WARFARIN SODIUM 4 MG TABS 1 tab every evening WARFARIN SODIUM 4 MG TABS 413968 WARFARIN SODIUM Inactive LOMOTIL 2.5-0.025 MG TAB 1 to 2 four times a day as needed for diarrhea 10/13 LOMOTIL 2.5-0.025 MG TAB 8184426 DIPHENOXYLATE-ATROPINE Inactive IBUPROFEN 800 MG TABS 1 tab every 8 hours as needed IBUPROFEN 800 MG TABS 754167 IBUPROFEN Inactive PREDNISONE 20 MG TAB 2 tablets today, then 1 tablet days 2 through 4 PREDNISONE 20 MG TAB 179545 PREDNISONE Inactive GABAPENTIN 300 MG CAPS 1 po q hs for nerve pain GABAPENTIN 300 MG CAPS 386601 GABAPENTIN Inactive TRAMADOL HCL 50 MG TABS 1 po tid with ES Tylenol TRAMADOL HCL 50 MG TABS 830928 TRAMADOL HCL Inactive AZITHROMYCIN 250 MG TABS 2 po qd x 1 day, then 1 po qd x 4 days AZITHROMYCIN 250 MG TABS 513136 AZITHROMYCIN Inactive AZITHROMYCIN 250 MG TABS 2 po qd x 1 day, then 1 po qd x 4 days AZITHROMYCIN 250 MG TABS 984865 AZITHROMYCIN Inactive NYSTATIN-TRIAMCINOLONE 272065-9.1 UNIT/GM-% CREA Apply to area BID NYSTATIN-TRIAMCINOLONE 171077-0.1 UNIT/GM-% CREA 3802305 NYSTATIN-TRIAMCINOLONE Inactive AZITHROMYCIN 250 MG TABS 2 po qd x 1 day, then 1 po qd x 4 days AZITHROMYCIN 250 MG TABS 292622 AZITHROMYCIN Inactive AZITHROMYCIN 250 MG TABS 2 po qd x 1 day, then 1 po qd x 4 days AZITHROMYCIN 250 MG TABS 489212 AZITHROMYCIN Inactive AZITHROMYCIN 250 MG TABS 2 po qd x 1 day, then 1 po qd x 4 days AZITHROMYCIN 250 MG TABS 864363 AZITHROMYCIN Inactive PREDNISONE 20 MG TAB 2 tabs daily for 3 days, 1 tab daily for 3 days, 1/2 tab daily for 2 days PREDNISONE 20 MG TAB 430671 PREDNISONE Inactive DOXYCYCLINE HYCLATE 100 MG CAP 1 cap by mouth BID x10 days 10/01 DOXYCYCLINE HYCLATE 100 MG CAP 8927022 DOXYCYCLINE HYCLATE Inactive Advance Directives Directive Description [...] - Chemistry calcium, serum 8.5 mg/dL 8.5-10.1 sodium, serum 141 mmol/L 826-911 5374/01/24 chloride, serum 103 mmol/L 98-107 carbon dioxide, venous blood 30.7 mmol/L 21.0-32.0 potassium, serum 4.3 mmol/L 3.5-5.2 blood glucose 90 mg/dL 65-110 urea nitrogen, blood 16 mg/dL 7-18 creatinine, serum 1.09 mg/dL 0.55-1.30 Lab Report: CBC-QUEST - Hematology leukocyte count, blood 5.4 THOUSAND/UL 10*3/mm3 3.8-10.8 hemoglobin, blood 14.4 g/dL 13.2-17.1 erythrocyte (RBC) count 5.13 MILLION/UL 10*6/mm3 4.20-5.80 hematocrit, blood 43.0 % 38.5-50.0 mean corpuscular volume, RBC 83.9 fL 80.0-100.0 mean corpuscular hemoglobin, RBC 28.1 pg 27.0-33.0 mean corpuscular hemoglobin concentration, RBC 33.5 G/DL % 32.0- 36.0 red blood cell distribution width 14.0 % 11.0-15.0 platelet count 172 THOUSAND/UL 10*3/mm3 487-802 8686/04/12 mean platelet volume 8.6 fL 7.5-12.5 Lab [...] 18.9-24.9 Encounters Code Encounter Date Provider Facility CPT-53088 Level 3 Est. Patient 17:10:19 CDT Nella Harris APRN [facility] CPT-44044 Level 3 Est. Patient 10:48:17 CHUTE BOSS Matthew Rangel MD [facility] CPT-81999 Level 4 Est. Patient 17:15:07 CHUTE BOSS Piotr W Edi [facility] CPT-59459 Level 3 Est. Patient 12:46:13 CHUTE BOSS Piotr Daley [facility] CPT-73180 Level 3 Est. Patient 15:14:31 CHUTE BOSS Piotr Daley [facility] CPT-23621 Level 3 Est. Patient 09:20:13 CHUTE BOSS Piotr Daley [facility] CPT-98355 Level 3 Est. Patient 09:49:40 CDT Piotr Daley [facility] CPT-83944 Level 3 Est. Patient 16:28:11 CDT Piotr Daley [facility] CPT-64686 Level 3 Est. Patient 12:41:58 CHUTE BOSS Piotr Daley [facility] CPT-88053 Level 3 Est. Patient 09:21:24 CDT Piotr Daley [facility] CPT-14034 Level 3 Est. Patient 09:21:11 CDT Piotr Daley [facility] CPT-74584 Level 3 Est. Patient 11:16:29 CHUTE BOSS Piotr Daley [facility] CPT-17435 Level 3 Est. Patient 18:40:19 CHUTE BOSS Piotr Daley [facility] CPT-60742 Level 3 Est. Patient 19:30:50 CDT Piotr Daley DO [facility] CPT-73661 Level 3 Est. Patient 22:06:44 CDT Katrina Rinaldi MD PhD [facility] CPT-86565 Level 3 Est. Patient 14:20:00 CDT Piotr Daley [facility] CPT-57777 Level 3 Est. Patient 14:15:22 CHUTE BOSS Piotr Daley [facility] CPT-38566 Level 3 Est. Patient 20:19:57 CHUTE BOSS Piotr Daley [facility] CPT-92625 Level 3 Est. Patient 16:44:32 CDT Piotr W Edi [facility] CPT-56684 Level 3 Est. Patient 08:48:46 CHUTE BOSS Piotr Daley [facility] CPT-23041 Level 3 Est. Patient 21:01:21 CDT Piotr Daley [facility] Procedures Code Procedure Name Date Entry Date Standard Description CPT-34791 BMP - LAB USE ONLY 17:19:11 CHUTE BOSS CPT-31438 PT/INR - LAB USE ONLY 17:19:10 CH[employer] CPT-65997 Venipuncture Draw Fee 17:19:10 CHUTE BOSS CPT-71537 PT/INR - LAB USE ONLY 08:12:25 CHUTE BOSS CPT-94146 Venipuncture Draw Fee 08:12:24 CHUTE BOSS CPT-64962 Venipuncture Draw Fee 11:31:07 CHUTE BOSS CPT-05505 TPSA - LAB USE ONLY 11:31:07 CHUTE BOSS CPT-82502 PT/INR - LAB USE ONLY 11:31:07 CHUTE BOSS CPT-G0439 [facility] Annual Wellness Exam 09:59:29 CHUTE BOSS CPT-49162 Creatinine - LAB USE ONLY 14:37:55 CH[employer] CPT-21726 PT/INR - LAB USE ONLY 14:37:55 CHUTE BOSS CPT-85542 Venipuncture Draw Fee 14:37:55 CHUTE BOSS CPT-76248 LS spine comp w obliques - XRAY USE ONLY 12:59:25 CHUTE BOSS CPT-16809 PT/INR - LAB USE ONLY 13:49:20 CDT CPT-25918 Venipuncture Draw Fee 13:49:19 CDT CPT-77035 PT/INR - LAB USE ONLY 15:48:49 CDT CPT-00690 Venipuncture Draw Fee 15:48:49 CDT CPT-34882 Venipuncture Draw Fee 11:31:59 CDT CPT-17731 PT/INR - LAB USE ONLY 11:31:59 CDT CPT-76733 Venipuncture Draw Fee 13:29:15 CDT CPT-08351 Thoracolumbar AP/Lat 15:19:19 CHUTE BOSS CPT-G0438 Initial Annual Wellness Exam 12:18:54 CHUTE BOSS CPT-01070 Knee 3V 09:57:38 CDT CPT-OV Office Visit 15:45:01 CHUTE BOSS CPT-17526 Abd compl w upright 17:10:25 CDT
--- OUTSIDE RECORDS SUMMARY | 2018-07-18 11:01 | XMS REPORT | Clinical Summary ---
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 Unspecified pruritic disorder FLANK PAIN, RIGHT ICD-789.09 [...] mouth BID x10 days 10/01 DOXYCYCLINE HYCLATE 01831652923 No Longer Active Nella Harris APRN Active WARFARIN SODIUM 5 MG TABS 1 tablet daily M-S, 1/2 tab on Heart WARFARIN SODIUM 85732939929 Active Anahy Loja Active PROAIR HFA 108 (90 BASE) MCG/ACT AERS 1-2 puffs four times a day as needed ALBUTEROL SULFATE 14847392515 Active Matthew Rangel MD Active PREDNISONE 20 MG TAB 2 tabs daily for 3 days, 1 tab daily for 3 days, 1/2 tab daily for 2 days PREDNISONE 26928083551 No Longer Active Matthew Rangel MD Active TRAMADOL HCL 50 MG TABS 1 po tid with ES Tylenol TRAMADOL HCL 27495153440 No Longer Active Matthew Rangel MD Active GABAPENTIN 300 MG CAPS 1 po q hs for nerve pain GABAPENTIN 94759252868 No Longer Active Matthew Rangel MD Active PREDNISONE 20 MG TAB 2 tablets today, then 1 tablet days 2 through 4 PREDNISONE 98113502581 No Longer Active Piotr Daley DO Active AZITHROMYCIN 250 MG TABS 2 po qd x 1 day, then 1 po qd x 4 days AZITHROMYCIN 91152331431 No Longer Active Piotr Daley DO Active IBUPROFEN 800 MG TABS 1 tab every 8 hours as needed IBUPROFEN 66076533613 No Longer Active Piotr Daley DO Active LOMOTIL 2.5-0.025 MG TAB 1 to 2 four times a day as needed for diarrhea 10/13 DIPHENOXYLATE-ATROPINE 98852964642 No Longer Active Piotr Daley DO Active WARFARIN SODIUM 4 MG TABS 1 tab every evening WARFARIN SODIUM 61703873673 No Longer Active Piotr Daley DO Active PREDNISONE 20 MG TAB 1 tablet twice daily for 2 days, then 1 tablet once daily for 2 days PREDNISONE 88730359026 No Longer Active Piotr Daley DO Active PROMETHAZINE HCL 25 MG TABS 1 four times a day as needed for nausea/vomiting PROMETHAZINE HCL 34996945255 No Longer Active Piotr Daley DO Active TUSSIONEX PENNKINETIC ER 10-8 MG/5ML LQCR 5ml po q12hr PRN Cough HYDROCOD POLST-CHLORPHEN POLST 06437444894 No Longer Active Piotr Daley DO Active AZITHROMYCIN 250 MG TABS 2 po qd x 1 day, then 1 po qd x 4 days AZITHROMYCIN 41102755425 No Longer Active Piotr Daley DO Active AZITHROMYCIN 250 MG TABS 2 po qd x 1 day, then 1 po qd x 4 days AZITHROMYCIN 14517695362 No Longer Active Poitr Daley DO Active LISINOPRIL-HYDROCHLOROTHIAZIDE 10-12.5 MG TABS 1 tab by mouth daily LISINOPRIL-HYDROCHLOROTHIAZIDE 42029189635 Active Catalina Freitas Active LISINOPRIL 10 MG TABS 1/2-1 tab po every other day LISINOPRIL 76646923374 No Longer Active Piotr W Edi DO Active VENTOLIN HFA 108 (90 BASE) MCG/ACT AERS 2 puffs four times a day PRN cough ALBUTEROL SULFATE 91991837886 No Longer Active Piotr Daley DO Active NYSTATIN-TRIAMCINOLONE 278193-0.1 UNIT/GM-% CREA Apply to area BID NYSTATIN-TRIAMCINOLONE 84005973683 No Longer Active Alena Oswaldum BRIDGE CRANE OPERATOR Active PHISOHEX 3 % LIQD Use Directed HEXACHLOROPHENE 12164756705 No Longer Active Sandra Marsing Active AZITHROMYCIN 250 MG TABS 2 po qd x 1 day, then 1 po qd x 4 days AZITHROMYCIN 64209522124 No Longer Active Katrina Rinaldi MD PhD Active AZITHROMYCIN 250 MG TABS 2 po qd x 1 day, then 1 po qd x 4 days AZITHROMYCIN 70103091413 No Longer Active Piotr Daley DO Active AZITHROMYCIN 500 MG SOLR 1 po q day AZITHROMYCIN 21191139117 No Longer Active Piotr Daley DO Active NYSTATIN-TRIAMCINOLONE 027045-8.1 UNIT/GM-% CREA apply bid 08/19 NYSTATIN-TRIAMCINOLONE 77977855263 No Longer Active Piotr Daley DO Active IBUPROFEN 800 MG TABS 1 po q 8 hours prn pain sparinly IBUPROFEN 44278409850 No Longer Active Piotr Daley DO Active VITAMIN D3 5000 UNIT CAPS 1 po daily CHOLECALCIFEROL 79550552881 Active Piotr Daley DO Active DOXYCYCLINE HYCLATE 100 MG CAP 1 cap by mouth BID x10 days 10/01 DOXYCYCLINE HYCLATE 100 MG CAP 9965682 DOXYCYCLINE HYCLATE Inactive IBUPROFEN 800 MG TABS 1 po q 8 hours prn pain sparinly IBUPROFEN 800 MG TABS IBUPROFEN Inactive IBUPROFEN 800 MG TABS 1 tab every 8 hours as needed IBUPROFEN 800 MG TABS IBUPROFEN Inactive LOMOTIL 2.5-0.025 MG TAB 1 to 2 four times a day as needed for diarrhea 10/13 LOMOTIL 2.5-0.025 MG TAB 2201847 DIPHENOXYLATE-ATROPINE Inactive NYSTATIN-TRIAMCINOLONE 292174-5.1 UNIT/GM-% CREA apply bid 08/19 NYSTATIN-TRIAMCINOLONE 074983-5.1 UNIT/GM-% CREA 3741537 NYSTATIN- TRIAMCINOLONE Inactive NYSTATIN-TRIAMCINOLONE 720423-3.1 UNIT/GM-% CREA Apply to area BID NYSTATIN-TRIAMCINOLONE 881909-1.1 UNIT/GM-% CREA 0164449 NYSTATIN-TRIAMCINOLONE Inactive PREDNISONE 20 MG TAB 1 tablet twice daily for 2 days, then 1 tablet once daily for 2 days PREDNISONE 20 MG TAB 893375 PREDNISONE Inactive PREDNISONE 20 MG TAB 2 tablets today, then 1 tablet days 2 through 4 PREDNISONE 20 MG TAB 576231 PREDNISONE Inactive PREDNISONE 20 MG TAB 2 tabs daily for 3 days, 1 tab daily for 3 days, 1/2 tab daily for 2 days PREDNISONE 20 MG TAB 641617 PREDNISONE Inactive PROMETHAZINE HCL 25 MG TABS 1 four times a day as needed for nausea/vomiting PROMETHAZINE HCL 25 MG TABS 204929 PROMETHAZINE HCL Inactive LISINOPRIL 10 MG TABS 1/2-1 tab po every other day LISINOPRIL 10 MG TABS 292594 LISINOPRIL Inactive TRAMADOL HCL 50 MG TABS 1 po tid with ES Tylenol TRAMADOL HCL 50 MG TABS 167107 TRAMADOL HCL Inactive GABAPENTIN 300 MG CAPS 1 po q hs for nerve pain GABAPENTIN 300 MG CAPS 776620 GABAPENTIN Inactive AZITHROMYCIN 250 MG TABS 2 po qd x 1 day, then 1 po qd x 4 days AZITHROMYCIN 250 MG TABS 425833 AZITHROMYCIN Inactive AZITHROMYCIN 250 MG TABS 2 po qd x 1 day, then 1 po qd x 4 days AZITHROMYCIN 250 MG TABS 032614 AZITHROMYCIN Inactive AZITHROMYCIN 250 MG TABS 2 po qd x 1 day, then 1 po qd x 4 days AZITHROMYCIN 250 MG TABS 110738 AZITHROMYCIN Inactive AZITHROMYCIN 250 MG TABS 2 po qd x 1 day, then 1 po qd x 4 days AZITHROMYCIN 250 MG TABS 897623 AZITHROMYCIN Inactive AZITHROMYCIN 250 MG TABS 2 po qd x 1 day, then 1 po qd x 4 days AZITHROMYCIN 250 MG TABS 622893 AZITHROMYCIN Inactive AZITHROMYCIN 500 MG SOLR 1 po q day AZITHROMYCIN 500 MG SOLR 64589820966 AZITHROMYCIN Inactive WARFARIN SODIUM 4 MG TABS 1 tab every evening WARFARIN SODIUM 4 MG TABS 121025 WARFARIN SODIUM Inactive VENTOLIN HFA 108 (90 BASE) MCG/ACT AERS 2 puffs four times a day PRN cough VENTOLIN HFA 108 (90 BASE) MCG/ACT AERS ALBUTEROL SULFATE Inactive TUSSIONEX PENNKINETIC ER 10-8 MG/5ML LQCR 5ml po q12hr PRN Cough TUSSIONEX PENNKINETIC ER 10-8 MG/5ML LQCR HYDROCOD POLST- CHLORPHEN POLST Inactive Advance Directives Directive Description Start [...] Panel - Chemistry sodium, serum 141 mmol/L 604-061 9003/01/24 potassium, serum 4.3 mmol/L 3.5-5.2 chloride, serum [...] % 11.0-15.0 platelet count 172 THOUSAND/UL 10*3/mm3 185-937 0415/04/12 mean platelet volume 8.6 fL 7.5-12.5 Lab [...] 18.9-24.9 Encounters Code Encounter Date Provider Facility CPT-28970 Level 3 Est. Patient 17:10:19 CDJose Harris APRN [facility] CPT-88700 Level 3 Est. Patient 10:48:17 BUSINESS OFFICE ASSOCIATE Matthew Rangel MD [facility] CPT-28258 Level 4 Est. Patient 17:15:07 BUSINESS OFFICE ASSOCIATE Piotr W Edi [facility] CPT-86676 Level 3 Est. Patient 12:46:13 BUSINESS OFFICE ASSOCIATE Piotr Daley [facility] CPT-92249 Level 3 Est. Patient 15:14:31 BUSINESS OFFICE ASSOCIATE Piotr Daley [facility] CPT-10760 Level 3 Est. Patient 09:20:13 BUSINESS OFFICE ASSOCIATE Piotr Daley [facility] CPT-14726 Level 3 Est. Patient 09:49:40 CDT Piotr Daley [facility] CPT-37814 Level 3 Est. Patient 16:28:11 CDT Piotr Daley [facility] CPT-75809 Level 3 Est. Patient 12:41:58 BUSINESS OFFICE ASSOCIATE Piotr Daley [facility] CPT-00642 Level 3 Est. Patient 09:21:24 CDT Piotr Daley [facility] CPT-60003 Level 3 Est. Patient 09:21:11 CDT Piotr Daley [facility] CPT-61225 Level 3 Est. Patient 11:16:29 BUSINESS OFFICE ASSOCIATE Piotr Daley [facility] CPT-33219 Level 3 Est. Patient 18:40:19 BUSINESS OFFICE ASSOCIATE Piotr Daley [facility] CPT-02244 Level 3 Est. Patient 19:30:50 CDT Piotr Daley [facility] CPT-41383 Level 3 Est. Patient 22:06:44 CDT Katrina Rinaldi MD PhD [facility] CPT-91813 Level 3 Est. Patient 14:20:00 CDT Piotr Daley [facility] CPT-83130 Level 3 Est. Patient 14:15:22 BUSINESS OFFICE ASSOCIATE Piotr Daley [facility] CPT-96116 Level 3 Est. Patient 20:19:57 BUSINESS OFFICE ASSOCIATE Piotr Daley [facility] CPT-20215 Level 3 Est. Patient 16:44:32 CDT Piotr W Edi [facility] CPT-31511 Level 3 Est. Patient 08:48:46 BUSINESS OFFICE ASSOCIATE Piotr Daley [facility] CPT-84252 Level 3 Est. Patient 21:01:21 CDT Piotr Daley [facility] Procedures Code Procedure Name Date Entry Date Standard Description CPT-66454 BMP - LAB USE ONLY 17:19:11 BUSINESS OFFICE ASSOCIATE CPT-25008 PT/INR - LAB USE ONLY 17:19:10 BUSINESS OFFICE ASSOCIATE CPT-84337 Venipuncture Draw Fee 17:19:10 BUSINESS OFFICE ASSOCIATE CPT-97484 PT/INR - LAB USE ONLY 08:12:25 BUSINESS OFFICE ASSOCIATE CPT-63821 Venipuncture Draw Fee 08:12:24 BUSINESS OFFICE ASSOCIATE CPT-64472 Venipuncture Draw Fee 11:31:07 BUSINESS OFFICE ASSOCIATE CPT-67943 TPSA - LAB USE ONLY 11:31:07 BUSINESS OFFICE ASSOCIATE CPT-81072 PT/INR - LAB USE ONLY 11:31:07 BUSINESS OFFICE ASSOCIATE CPT-G0439 [facility] Annual Wellness Exam 09:59:29 BUSINESS OFFICE ASSOCIATE CPT-93410 Creatinine - LAB USE ONLY 14:37:55 BUSINESS OFFICE ASSOCIATE CPT-28202 PT/INR - LAB USE ONLY 14:37:55 BUSINESS OFFICE ASSOCIATE CPT-17908 Venipuncture Draw Fee 14:37:55 BUSINESS OFFICE ASSOCIATE CPT-37545 LS spine comp w obliques - XRAY USE ONLY 12:59:25 BUSINESS OFFICE ASSOCIATE CPT-05575 PT/INR - LAB USE ONLY 13:49:20 CDT CPT-08438 Venipuncture Draw Fee 13:49:19 CDT CPT-54330 PT/INR - LAB USE ONLY 15:48:49 CDT CPT-52133 Venipuncture Draw Fee 15:48:49 CDT CPT-12859 Venipuncture Draw Fee 11:31:59 CDT CPT-54369 PT/INR - LAB USE ONLY 11:31:59 CDT CPT-18767 Venipuncture Draw Fee 13:29:15 CDT CPT-28357 Thoracolumbar AP/Lat 15:19:19 BUSINESS OFFICE ASSOCIATE CPT-G0438 Initial Annual Wellness Exam 12:18:54 BUSINESS OFFICE ASSOCIATE CPT-20547 Knee 3V 09:57:38 CDT CPT-OV Office Visit 15:45:01 BUSINESS OFFICE ASSOCIATE CPT-43239 Abd compl w upright 17:10:25 CDT
--- OUTSIDE RECORDS SUMMARY | 2018-07-18 11:02 | XMS REPORT | Clinical Summary ---
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 Personal history of malignant neoplasm of prostate Coronary artery disease 414.00 Active Alina Luigi PLATEN GRINDER Coronary atherosclerosis of unspecified type of vessel, [...] MG TABS 1 tablet daily WARFARIN SODIUM 74953415208 Active Emelyn Goode RPT,RMA Active TRAMADOL HCL 50 MG TABS 1 po tid with ES Tylenol TRAMADOL HCL 51600356904 Active Piotr Daley DO Active PREDNISONE 20 MG TAB 2 tablets today, then 1 tablet days 2 through 4 PREDNISONE 14804370176 No Longer Active Piotr Daley DO Active AZITHROMYCIN 250 MG TABS 2 po qd x 1 day, then 1 po qd x 4 days AZITHROMYCIN 27431005476 No Longer Active Piotr Daley DO Active IBUPROFEN 800 MG TABS 1 tab every 8 hours as needed IBUPROFEN 28172156629 No Longer Active Piotr Daley DO Active LOMOTIL 2.5-0.025 MG TAB 1 to 2 four times a day as needed for diarrhea 10/13 DIPHENOXYLATE-ATROPINE 67281221034 No Longer Active Piotr Daley DO Active WARFARIN SODIUM 4 MG TABS 1 tab every evening WARFARIN SODIUM 46371230537 No Longer Active Piotr Daley DO Active PREDNISONE 20 MG TAB 1 tablet twice daily for 2 days, then 1 tablet once daily for 2 days PREDNISONE 86895890550 No Longer Active Piotr Daley DO Active PROMETHAZINE HCL 25 MG TABS 1 four times a day as needed for nausea/vomiting PROMETHAZINE HCL 03708685338 No Longer Active Piotr Daley DO Active TUSSIONEX PENNKINETIC ER 10-8 MG/5ML LQCR 5ml po q12hr PRN Cough HYDROCOD POLST-CHLORPHEN POLST 18441667908 No Longer Active Piotr W Edi DO Active AZITHROMYCIN 250 MG TABS 2 po qd x 1 day, then 1 po qd x 4 days AZITHROMYCIN 09857541235 No Longer Active Piotr Daley DO Active AZITHROMYCIN 250 MG TABS 2 po qd x 1 day, then 1 po qd x 4 days AZITHROMYCIN 62722340947 No Longer Active Piotr Daley DO Active LISINOPRIL-HYDROCHLOROTHIAZIDE 10-12.5 MG TABS 1 tab by mouth daily LISINOPRIL-HYDROCHLOROTHIAZIDE 28164596771 Active Hilary Ma MA Active LISINOPRIL 10 MG TABS 1/2-1 tab po every other day LISINOPRIL 87428609023 No Longer Active Piotr Daley DO Active VENTOLIN HFA 108 (90 BASE) MCG/ACT AERS 2 puffs four times a day PRN cough ALBUTEROL SULFATE 76909364405 No Longer Active Piotr Daley DO Active NYSTATIN-TRIAMCINOLONE 439457-8.1 UNIT/GM-% CREA Apply to area BID NYSTATIN-TRIAMCINOLONE 63141284063 No Longer Active Alena Oswaldum COUNSELLING PSYCHOLOGIST Active PHISOHEX 3 % LIQD Use Directed HEXACHLOROPHENE 71414985212 No Longer Active Sandra [place] Active AZITHROMYCIN 250 MG TABS 2 po qd x 1 day, then 1 po qd x 4 days AZITHROMYCIN 63254476148 No Longer Active Katrina Rinaldi MD PhD Active AZITHROMYCIN 250 MG TABS 2 po qd x 1 day, then 1 po qd x 4 days AZITHROMYCIN 54994026830 No Longer Active Piotr Daley DO Active AZITHROMYCIN 500 MG SOLR 1 po q day AZITHROMYCIN 09738796969 No Longer Active Piotr Daley DO Active NYSTATIN-TRIAMCINOLONE 247990-8.1 UNIT/GM-% CREA apply bid 08/19 NYSTATIN-TRIAMCINOLONE 30694081389 No Longer Active Piotr Daley DO Active IBUPROFEN 800 MG TABS 1 po q 8 hours prn pain sparinly IBUPROFEN 02850474360 No Longer Active Piotr Daley DO Active VITAMIN D3 5000 UNIT CAPS 1 po daily CHOLECALCIFEROL 06158931857 Active Piotr Daley DO Active IBUPROFEN 800 MG TABS 1 po q 8 hours prn pain sparinly IBUPROFEN 800 MG TABS 402166 IBUPROFEN Inactive NYSTATIN-TRIAMCINOLONE 048030-2.1 UNIT/GM-% CREA apply bid 08/19 NYSTATIN-TRIAMCINOLONE 304088-7.1 UNIT/GM-% CREA 2266215 NYSTATIN- TRIAMCINOLONE Inactive AZITHROMYCIN 500 MG SOLR 1 po q day AZITHROMYCIN 500 MG SOLR 95589087991 AZITHROMYCIN Inactive VENTOLIN HFA 108 (90 BASE) MCG/ACT AERS 2 puffs four times a day PRN cough VENTOLIN HFA 108 (90 BASE) MCG/ACT AERS ALBUTEROL SULFATE Inactive LISINOPRIL 10 MG TABS 1/2-1 tab po every other day LISINOPRIL 10 MG TABS 938682 LISINOPRIL Inactive TUSSIONEX PENNKINETIC ER 10-8 MG/5ML LQCR 5ml po q12hr PRN Cough TUSSIONEX PENNKINETIC ER 10-8 MG/5ML LQCR HYDROCOD POLST- CHLORPHEN POLST Inactive PROMETHAZINE HCL 25 MG TABS 1 four times a day as needed for nausea/vomiting PROMETHAZINE HCL 25 MG TABS 320092 PROMETHAZINE HCL Inactive PREDNISONE 20 MG TAB 1 tablet twice daily for 2 days, then 1 tablet once daily for 2 days PREDNISONE 20 MG TAB 739629 PREDNISONE Inactive WARFARIN SODIUM 4 MG TABS 1 tab every evening WARFARIN SODIUM 4 MG TABS 457727 WARFARIN SODIUM Inactive LOMOTIL 2.5-0.025 MG TAB 1 to 2 four times a day as needed for diarrhea 10/13 LOMOTIL 2.5-0.025 MG TAB 6989220 DIPHENOXYLATE-ATROPINE Inactive IBUPROFEN 800 MG TABS 1 tab every 8 hours as needed IBUPROFEN 800 MG TABS 596210 IBUPROFEN Inactive PREDNISONE 20 MG TAB 2 tablets today, then 1 tablet days 2 through 4 PREDNISONE 20 MG TAB 061671 PREDNISONE Inactive AZITHROMYCIN 250 MG TABS 2 po qd x 1 day, then 1 po qd x 4 days AZITHROMYCIN 250 MG TABS 0019857 AZITHROMYCIN Inactive AZITHROMYCIN 250 MG TABS 2 po qd x 1 day, then 1 po qd x 4 days AZITHROMYCIN 250 MG TABS 3741905 AZITHROMYCIN Inactive NYSTATIN-TRIAMCINOLONE 033058-0.1 UNIT/GM-% CREA Apply to area BID NYSTATIN-TRIAMCINOLONE 388472-1.1 UNIT/GM-% CREA 4562901 NYSTATIN-TRIAMCINOLONE Inactive AZITHROMYCIN 250 MG TABS 2 po qd x 1 day, then 1 po qd x 4 days AZITHROMYCIN 250 MG TABS 7178413 AZITHROMYCIN Inactive AZITHROMYCIN 250 MG TABS 2 po qd x 1 day, then 1 po qd x 4 days AZITHROMYCIN 250 MG TABS 0228380 AZITHROMYCIN Inactive AZITHROMYCIN 250 MG TABS 2 po qd x 1 day, then 1 po qd x 4 days AZITHROMYCIN 250 MG TABS 6625834 AZITHROMYCIN Inactive Advance Directives Directive Description Start [...] Panel - Chemistry sodium, serum 141 mmol/L 968-113 3005/06/28 potassium, serum 4.2 mmol/L 3.5-5.2 chloride, serum [...] (INR) 1.99 1.0-3.5 international normalized ratio (INR) 2.6 1.0-3.5 prothrombin time (patient) 19.9 SECS s 11.1-13.4 prothrombin time (patient) 18.9 [...] urine 1.025 1.000-1.030 appearance, urine Clear Clear glucose, urine, semiquantitative Negative Negative ketones, urine, by test strip Negative Negative bilirubin, urine Negative Negative urine color Yellow Colorless;Lightyellow;Straw;Yellow pH, urine, semiquantitative 6.0 5.0-8.5 Encounters Code Encounter Date Provider Facility CPT-47304 Level 3 Est. Patient 15:14:31 PASSENGER SERVICE SUPERVISOR Piotr Daley [facility] CPT-47733 Level 3 Est. Patient 09:20:13 PASSENGER SERVICE SUPERVISOR Piotr Wilson [facility] CPT-26875 Level 3 Est. Patient 09:49:40 CDT Piotr W [facility] CPT-93451 Level 3 Est. Patient 16:28:11 CDT Piotr Daley [facility] CPT-42608 Level 3 Est. Patient 12:41:58 PASSENGER SERVICE SUPERVISOR Piotr Daley [facility] CPT-36664 Level 3 Est. Patient 09:21:24 CDT Piotr Daley [facility] CPT-58821 Level 3 Est. Patient 09:21:11 CDT Piotr Daley [facility] CPT-77372 Level 3 Est. Patient 11:16:29 PASSENGER SERVICE SUPERVISOR Piotr Daley [facility] CPT-79637 Level 3 Est. Patient 18:40:19 PASSENGER SERVICE SUPERVISOR Piotr Daley [facility] CPT-74484 Level 3 Est. Patient 19:30:50 CDT Piotr Daley [facility] CPT-68222 Level 3 Est. Patient 22:06:44 CDT Katrina Rinaldi MD PhD [facility] CPT-75876 Level 3 Est. Patient 14:20:00 CDT Piotr Daley [facility] CPT-59926 Level 3 Est. Patient 14:15:22 PASSENGER SERVICE SUPERVISOR Piotr Daley [facility] CPT-28054 Level 3 Est. Patient 20:19:57 PASSENGER SERVICE SUPERVISOR Piotr Daley [facility] CPT-36146 Level 3 Est. Patient 16:44:32 CDT Piotr Katie Edi [facility] CPT-16178 Level 3 Est. Patient 08:48:46 PASSENGER SERVICE SUPERVISOR Piotr Wilson Edi [facility] CPT-75582 Level 3 Est. Patient 21:01:21 CDT Piotr Daley [facility] Procedures Code Procedure Name Date Entry Date Standard Description CPT-23206 Venipuncture Draw Fee 13:29:15 CDT CPT-05020 Thoracolumbar AP/Lat 15:19:19 PASSENGER SERVICE SUPERVISOR CPT-G0438 Initial Annual Wellness Exam 12:18:54 PASSENGER SERVICE SUPERVISOR CPT-35278 Knee 3V 09:57:38 CDT CPT-OV Office Visit 15:45:01 PASSENGER SERVICE SUPERVISOR CPT-75034 Abd compl w upright 17:10:25 CDT
--- OUTSIDE RECORDS SUMMARY | 2018-07-18 11:02 | XMS REPORT | Clinical Summary ---
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 WARFARIN SODIUM 18622636187 Active Piotr Daley DO Active PREDNISONE 20 MG TAB 2 tablets today, then 1 tablet days 2 through 4 PREDNISONE 57928602434 No Longer Active Piotr Daley DO Active AZITHROMYCIN 250 MG TABS 2 po qd x 1 day, then 1 po qd x 4 days AZITHROMYCIN 14796895687 No Longer Active Piotr Daley DO Active IBUPROFEN 800 MG TABS 1 tab every 8 hours as needed IBUPROFEN 78765376377 No Longer Active Piotr Daley DO Active LOMOTIL 2.5-0.025 MG TAB 1 to 2 four times a day as needed for diarrhea 10/13 DIPHENOXYLATE-ATROPINE 16924256216 No Longer Active Piotr Daley DO Active WARFARIN SODIUM 4 MG TABS 1 tab every evening WARFARIN SODIUM 86521774059 No Longer Active Piotr Daley DO Active PREDNISONE 20 MG TAB 1 tablet twice daily for 2 days, then 1 tablet once daily for 2 days PREDNISONE 01289623329 No Longer Active Piotr Daley DO Active PROMETHAZINE HCL 25 MG TABS 1 four times a day as needed for nausea/vomiting PROMETHAZINE HCL 74016025304 No Longer Active Piotr Daley DO Active TUSSIONEX PENNKINETIC ER 10-8 MG/5ML LQCR 5ml po q12hr PRN Cough HYDROCOD POLST-CHLORPHEN POLST 32405580262 No Longer Active Piotr Daley DO Active AZITHROMYCIN 250 MG TABS 2 po qd x 1 day, then 1 po qd x 4 days AZITHROMYCIN 43381428986 No Longer Active Piotr Daley DO Active AZITHROMYCIN 250 MG TABS 2 po qd x 1 day, then 1 po qd x 4 days AZITHROMYCIN 20802120543 No Longer Active Piotr Daely DO Active LISINOPRIL-HYDROCHLOROTHIAZIDE 10-12.5 MG TABS 1 tab by mouth daily LISINOPRIL-HYDROCHLOROTHIAZIDE 63390365329 Active Piotr Daley DO Active LISINOPRIL 10 MG TABS 1/2-1 tab po every other day LISINOPRIL 30880599463 No Longer Active Piotr Daley DO Active VENTOLIN HFA 108 (90 BASE) MCG/ACT AERS 2 puffs four times a day PRN cough ALBUTEROL SULFATE 23130730626 No Longer Active Piotr Daley DO Active NYSTATIN-TRIAMCINOLONE 614668-0.1 UNIT/GM-% CREA Apply to area BID NYSTATIN-TRIAMCINOLONE 19669703894 No Longer Active Alena Jarvis Fan POPCORN ATTENDANT Active PHISOHEX 3 % LIQD Use Directed HEXACHLOROPHENE 74148215137 No Longer Active Sandra Glidden Active AZITHROMYCIN 250 MG TABS 2 po qd x 1 day, then 1 po qd x 4 days AZITHROMYCIN 70974285951 No Longer Active Katrina Rinaldi MD PhD Active AZITHROMYCIN 250 MG TABS 2 po qd x 1 day, then 1 po qd x 4 days AZITHROMYCIN 66737484680 No Longer Active Piotr Daley DO Active AZITHROMYCIN 500 MG SOLR 1 po q day AZITHROMYCIN 00520441780 No Longer Active Piotr Daley DO Active NYSTATIN-TRIAMCINOLONE 793474-5.1 UNIT/GM-% CREA apply bid 08/19 NYSTATIN-TRIAMCINOLONE 06896707598 No Longer Active Piotr Daley DO Active IBUPROFEN 800 MG TABS 1 po q 8 hours prn pain sparinly IBUPROFEN 91413119337 No Longer Active Piotr Daley DO Active VITAMIN D3 5000 UNIT CAPS 1 po daily CHOLECALCIFEROL 35851340711 Active Piotr Daley DO Active IBUPROFEN 800 MG TABS 1 po q 8 hours prn pain sparinly IBUPROFEN 800 MG TABS IBUPROFEN Inactive NYSTATIN-TRIAMCINOLONE 463935-4.1 UNIT/GM-% CREA apply bid 08/19 NYSTATIN-TRIAMCINOLONE 391569-7.1 UNIT/GM-% CREA 7949090 NYSTATIN- TRIAMCINOLONE Inactive AZITHROMYCIN 500 MG SOLR 1 po q day AZITHROMYCIN 500 MG SOLR 029621 AZITHROMYCIN Inactive VENTOLIN HFA 108 (90 BASE) MCG/ACT AERS 2 puffs four times a day PRN cough VENTOLIN HFA 108 (90 BASE) MCG/ACT AERS ALBUTEROL SULFATE Inactive LISINOPRIL 10 MG TABS 1/2-1 tab po every other day LISINOPRIL 10 MG TABS 131179 LISINOPRIL Inactive TUSSIONEX PENNKINETIC ER 10-8 MG/5ML LQCR 5ml po q12hr PRN Cough TUSSIONEX PENNKINETIC ER 10-8 MG/5ML LQCR HYDROCOD POLST- CHLORPHEN POLST Inactive PROMETHAZINE HCL 25 MG TABS 1 four times a day as needed for nausea/vomiting PROMETHAZINE HCL 25 MG TABS 597938 PROMETHAZINE HCL Inactive PREDNISONE 20 MG TAB 1 tablet twice daily for 2 days, then 1 tablet once daily for 2 days PREDNISONE 20 MG TAB 308617 PREDNISONE Inactive WARFARIN SODIUM 4 MG TABS 1 tab every evening WARFARIN SODIUM 4 MG TABS 920710 WARFARIN SODIUM Inactive LOMOTIL 2.5-0.025 MG TAB 1 to 2 four times a day as needed for diarrhea 10/13 LOMOTIL 2.5-0.025 MG TAB 6857694 DIPHENOXYLATE-ATROPINE Inactive IBUPROFEN 800 MG TABS 1 tab every 8 hours as needed IBUPROFEN 800 MG TABS 847854 IBUPROFEN Inactive PREDNISONE 20 MG TAB 2 tablets today, then 1 tablet days 2 through 4 PREDNISONE 20 MG TAB 507317 PREDNISONE Inactive AZITHROMYCIN 250 MG TABS 2 po qd x 1 day, then 1 po qd x 4 days AZITHROMYCIN 250 MG TABS 9929047 AZITHROMYCIN Inactive AZITHROMYCIN 250 MG TABS 2 po qd x 1 day, then 1 po qd x 4 days AZITHROMYCIN 250 MG TABS 4605789 AZITHROMYCIN Inactive NYSTATIN-TRIAMCINOLONE 147097-1.1 UNIT/GM-% CREA Apply to area BID NYSTATIN-TRIAMCINOLONE 696168-2.1 UNIT/GM-% CREA 7085581 NYSTATIN-TRIAMCINOLONE Inactive AZITHROMYCIN 250 MG TABS 2 po qd x 1 day, then 1 po qd x 4 days AZITHROMYCIN 250 MG TABS 7496468 AZITHROMYCIN Inactive AZITHROMYCIN 250 MG TABS 2 po qd x 1 day, then 1 po qd x 4 days AZITHROMYCIN 250 MG TABS 5521985 AZITHROMYCIN Inactive AZITHROMYCIN 250 MG TABS 2 po qd x 1 day, then 1 po qd x 4 days AZITHROMYCIN 250 MG TABS 9050621 AZITHROMYCIN Inactive Advance Directives Directive Description Start [...] mg/g mg/g{creat} 0-29 sodium, serum 140 mmol/L 522-942 0351/07/17 potassium, serum 4.2 mmol/L 3.5-5.2 chloride, serum [...] 5.0-8.5 Encounters Code Encounter Date Provider Facility CPT-51372 Level 3 Est. Patient 15:14:31 PARTS IDENTIFIER Piotr Daley [facility] CPT-39499 Level 3 Est. Patient 09:20:13 PARTS IDENTIFIER Piotr Daley [facility]-[id number] Level 3 Est. Patient 09:49:40 CDT Piotr Daley [facility] CPT-19345 Level 3 Est. Patient 16:28:11 CDT Piotr Daley [facility] CPT-84766 Level 3 Est. Patient 12:41:58 PARTS IDENTIFIER Piotr Daley [facility] CPT-90817 Level 3 Est. Patient 09:21:24 CDT Piotr Daley [facility]-19684 Level 3 Est. Patient 09:21:11 CDT Piotr Daley [facility]-38207 Level 3 Est. Patient 11:16:29 PARTS IDENTIFIER Piotr Daley [facility] CPT-40323 Level 3 Est. Patient 18:40:19 PARTS IDENTIFIER Piotr Daley [facility]-17648 Level 3 Est. Patient 19:30:50 CDT Piotr Daley [facility]-94835 Level 3 Est. Patient 22:06:44 CDT Katrina Rinaldi MD PhD [facility]-52753 Level 3 Est. Patient 14:20:00 CDT Piotr Daley [facility] CPT-20613 Level 3 Est. Patient 14:15:22 PARTS IDENTIFIER Piotr Daley [facility] CPT-14029 Level 3 Est. Patient 20:19:57 PARTS IDENTIFIER Piotr Daley [facility] CPT-61292 Level 3 Est. Patient 16:44:32 CDT Piotr Daley [facility] CPT-56307 Level 3 Est. Patient 08:48:46 PARTS IDENTIFIER Piotr Wilson [facility] CPT-50758 Level 3 Est. Patient 21:01:21 CDT Piotr Wilson [facility] Procedures Code Procedure Name Date Entry Date Standard Description CPT-28631 Thoracolumbar AP/Lat 15:19:19 PARTS IDENTIFIER CPT-G0438 Initial Annual Wellness Exam 12:18:54 PARTS IDENTIFIER CPT-73825 Knee 3V 09:57:38 CDT CPT-OV Office Visit 15:45:01 PARTS IDENTIFIER CPT-18917 Abd compl w upright 17:10:25 CDT
--- OUTSIDE RECORDS SUMMARY | 2018-07-18 11:03 | XMS REPORT | Clinical Summary ---
Author Author Admin, [facility] [employer] Address Unknown Phone Unavailable Allergies, Adverse Reactions, [...] neoplasm of prostate V10.46 Active Alina Meyers LINE SUPPLY Personal history of malignant neoplasm of prostate Coronary artery disease 414.00 Active Alina Luigi [place]ST[place]ES Coronary atherosclerosis of unspecified type of vessel, [place] or graft Back pain, thoracic region, left 724.1 Inactive Piotr Daley DO Pain in thoracic spine Thoracic back pain 724.5 Active Piotr Wilson Edi DO Backache, unspecified Back pain lumbar 724.2 Active Piotr Daley DO Lumbago Peripheral neuropathy, lower extremity, left 356.9 Active 02/19 Piotr W Edi DO Unspecified hereditary and idiopathic peripheral neuropathy Insect bite 919.4 Active Nella Harris LINE SUPPL[employer] Insect bite, nonvenomous, of other, multiple, and unspecified sites, without mention of infection Pruritus 698.9 Active Nella Harris LINE SUP[employer] Unspecified pruritic disorder FLANK PAIN, RIGHT ICD-789.09 [...] mouth BID x10 days 10/01 DOXYCYCLINE HYCLATE 66890085330 No Longer Active Nella Harris APRN Active WARFARIN SODIUM 5 MG TABS 1 tablet daily M-S, 1/2 tab on Heart WARFARIN SODIUM 72710912248 Active Anahy Loja Active PROAIR HFA 108 (90 BASE) MCG/ACT AERS 1-2 puffs four times a day as needed ALBUTEROL SULFATE 37040335943 Active Matthew Rangel MD Active PREDNISONE 20 MG TAB 2 tabs daily for 3 days, 1 tab daily for 3 days, 1/2 tab daily for 2 days PREDNISONE 04622869819 No Longer Active Matthew Rangel MD Active TRAMADOL HCL 50 MG TABS 1 po tid with ES Tylenol TRAMADOL HCL 46270943147 No Longer Active Matthew Rangel MD Active GABAPENTIN 300 MG CAPS 1 po q hs for nerve pain GABAPENTIN 60412555639 No Longer Active Matthew Rangel MD Active PREDNISONE 20 MG TAB 2 tablets today, then 1 tablet days 2 through 4 PREDNISONE 98170636928 No Longer Active Piotr Daley DO Active AZITHROMYCIN 250 MG TABS 2 po qd x 1 day, then 1 po qd x 4 days AZITHROMYCIN 67339498841 No Longer Active Piotr Daley DO Active IBUPROFEN 800 MG TABS 1 tab every 8 hours as needed IBUPROFEN 46201412228 No Longer Active Piotr Daley DO Active LOMOTIL 2.5-0.025 MG TAB 1 to 2 four times a day as needed for diarrhea 10/13 DIPHENOXYLATE-ATROPINE 11742845907 No Longer Active Piotr Daley DO Active WARFARIN SODIUM 4 MG TABS 1 tab every evening WARFARIN SODIUM 27547152836 No Longer Active Piotr Daley DO Active PREDNISONE 20 MG TAB 1 tablet twice daily for 2 days, then 1 tablet once daily for 2 days PREDNISONE 03895950005 No Longer Active Piotr Daley DO Active PROMETHAZINE HCL 25 MG TABS 1 four times a day as needed for nausea/vomiting PROMETHAZINE HCL 75826785797 No Longer Active Piotr Daley DO Active TUSSIONEX PENNKINETIC ER 10-8 MG/5ML LQCR 5ml po q12hr PRN Cough HYDROCOD POLST-CHLORPHEN POLST 97300493420 No Longer Active Piotr Daley DO Active AZITHROMYCIN 250 MG TABS 2 po qd x 1 day, then 1 po qd x 4 days AZITHROMYCIN 84109015545 No Longer Active Piotr Daley DO Active AZITHROMYCIN 250 MG TABS 2 po qd x 1 day, then 1 po qd x 4 days AZITHROMYCIN 70014685274 No Longer Active Piotr Daley DO Active LISINOPRIL-HYDROCHLOROTHIAZIDE 10-12.5 MG TABS 1 tab by mouth daily LISINOPRIL-HYDROCHLOROTHIAZIDE 00774219330 Active Catalina Freitas Active LISINOPRIL 10 MG TABS 1/2-1 tab po every other day LISINOPRIL 98760778791 No Longer Active Piotr W Edi DO Active VENTOLIN HFA 108 (90 BASE) MCG/ACT AERS 2 puffs four times a day PRN cough ALBUTEROL SULFATE 99837030662 No Longer Active Piotr Daley DO Active NYSTATIN-TRIAMCINOLONE 536026-2.1 UNIT/GM-% CREA Apply to area BID NYSTATIN-TRIAMCINOLONE 39407902673 No Longer Active Alena Oswaldum IMPLEMENTATION CONSULTANT Active PHISOHEX 3 % LIQD Use Directed HEXACHLOROPHENE 66973529578 No Longer Active Sandra [place] Active AZITHROMYCIN 250 MG TABS 2 po qd x 1 day, then 1 po qd x 4 days AZITHROMYCIN 41509995804 No Longer Active Katrina Rinaldi MD PhD Active AZITHROMYCIN 250 MG TABS 2 po qd x 1 day, then 1 po qd x 4 days AZITHROMYCIN 91932401033 No Longer Active Piotr Daley DO Active AZITHROMYCIN 500 MG SOLR 1 po q day AZITHROMYCIN 72095932800 No Longer Active Piotr Daley DO Active NYSTATIN-TRIAMCINOLONE 439089-7.1 UNIT/GM-% CREA apply bid 08/19 NYSTATIN-TRIAMCINOLONE 26843600488 No Longer Active Piotr Daley DO Active IBUPROFEN 800 MG TABS 1 po q 8 hours prn pain sparinly IBUPROFEN 11498745916 No Longer Active Piotr Daley DO Active VITAMIN D3 5000 UNIT CAPS 1 po daily CHOLECALCIFEROL 17948641137 Active Piotr Daley DO Active IBUPROFEN 800 MG TABS 1 po q 8 hours prn pain sparinly IBUPROFEN 800 MG TABS 056986 IBUPROFEN Inactive NYSTATIN-TRIAMCINOLONE 523721-0.1 UNIT/GM-% CREA apply bid 08/19 NYSTATIN-TRIAMCINOLONE 570368-4.1 UNIT/GM-% CREA 1421602 NYSTATIN- TRIAMCINOLONE Inactive AZITHROMYCIN 500 MG SOLR 1 po q day AZITHROMYCIN 500 MG SOLR 21442303326 AZITHROMYCIN Inactive VENTOLIN HFA 108 (90 BASE) MCG/ACT AERS 2 puffs four times a day PRN cough VENTOLIN HFA 108 (90 BASE) MCG/ACT AERS ALBUTEROL SULFATE Inactive LISINOPRIL 10 MG TABS 1/2-1 tab po every other day LISINOPRIL 10 MG TABS 283171 LISINOPRIL Inactive TUSSIONEX PENNKINETIC ER 10-8 MG/5ML LQCR 5ml po q12hr PRN Cough TUSSIONEX PENNKINETIC ER 10-8 MG/5ML LQCR HYDROCOD POLST- CHLORPHEN POLST Inactive PROMETHAZINE HCL 25 MG TABS 1 four times a day as needed for nausea/vomiting PROMETHAZINE HCL 25 MG TABS 507067 PROMETHAZINE HCL Inactive PREDNISONE 20 MG TAB 1 tablet twice daily for 2 days, then 1 tablet once daily for 2 days PREDNISONE 20 MG TAB 580546 PREDNISONE Inactive WARFARIN SODIUM 4 MG TABS 1 tab every evening WARFARIN SODIUM 4 MG TABS 174223 WARFARIN SODIUM Inactive LOMOTIL 2.5-0.025 MG TAB 1 to 2 four times a day as needed for diarrhea 10/13 LOMOTIL 2.5-0.025 MG TAB 9314369 DIPHENOXYLATE-ATROPINE Inactive IBUPROFEN 800 MG TABS 1 tab every 8 hours as needed IBUPROFEN 800 MG TABS 220271 IBUPROFEN Inactive PREDNISONE 20 MG TAB 2 tablets today, then 1 tablet days 2 through 4 PREDNISONE 20 MG TAB 114045 PREDNISONE Inactive GABAPENTIN 300 MG CAPS 1 po q hs for nerve pain GABAPENTIN 300 MG CAPS 469476 GABAPENTIN Inactive TRAMADOL HCL 50 MG TABS 1 po tid with ES Tylenol TRAMADOL HCL 50 MG TABS 965392 TRAMADOL HCL Inactive AZITHROMYCIN 250 MG TABS 2 po qd x 1 day, then 1 po qd x 4 days AZITHROMYCIN 250 MG TABS 102090 AZITHROMYCIN Inactive AZITHROMYCIN 250 MG TABS 2 po qd x 1 day, then 1 po qd x 4 days AZITHROMYCIN 250 MG TABS 811447 AZITHROMYCIN Inactive NYSTATIN-TRIAMCINOLONE 787910-1.1 UNIT/GM-% CREA Apply to area BID NYSTATIN-TRIAMCINOLONE 411343-2.1 UNIT/GM-% CREA 4727494 NYSTATIN-TRIAMCINOLONE Inactive AZITHROMYCIN 250 MG TABS 2 po qd x 1 day, then 1 po qd x 4 days AZITHROMYCIN 250 MG TABS 053732 AZITHROMYCIN Inactive AZITHROMYCIN 250 MG TABS 2 po qd x 1 day, then 1 po qd x 4 days AZITHROMYCIN 250 MG TABS 415849 AZITHROMYCIN Inactive AZITHROMYCIN 250 MG TABS 2 po qd x 1 day, then 1 po qd x 4 days AZITHROMYCIN 250 MG TABS 760464 AZITHROMYCIN Inactive PREDNISONE 20 MG TAB 2 tabs daily for 3 days, 1 tab daily for 3 days, 1/2 tab daily for 2 days PREDNISONE 20 MG TAB 897031 PREDNISONE Inactive DOXYCYCLINE HYCLATE 100 MG CAP 1 cap by mouth BID x10 days 10/01 DOXYCYCLINE HYCLATE 100 MG CAP 0969793 DOXYCYCLINE HYCLATE Inactive Advance Directives Directive Description [...] Panel - Chemistry sodium, serum 141 mmol/L 714-503 2759/01/24 potassium, serum 4.3 mmol/L 3.5-5.2 chloride, serum [...] % 11.0-15.0 platelet count 172 THOUSAND/UL 10*3/mm3 643-347 4915/04/12 mean platelet volume 8.6 fL 7.5-12.5 Lab [...] 18.9-24.9 Encounters Code Encounter Date Provider Facility CPT-30841 Level 3 Est. Patient 17:10:19 MALACHI Harris LINE SUPPLY [facility] CPT-64600 Level 3 Est. Patient 10:48:17 FOOT GATHERER Matthew Rangel MD [facility] CPT-38470 Level 4 Est. Patient 17:15:07 FOOT GATHERER Piotr Daley [facility] CPT-82110 Level 3 Est. Patient 12:46:13 FOOT GATHERER Piotr Daley [facility] CPT-72698 Level 3 Est. Patient 15:14:31 FOOT GATHERER Piotr Daley [facility] CPT-90692 Level 3 Est. Patient 09:20:13 FOOT GATHERER Piotr Daley [facility] CPT-89811 Level 3 Est. Patient 09:49:40 CDT Piotr Daley [facility] CPT-91289 Level 3 Est. Patient 16:28:11 CDT Piotr Daley [facility] CPT-46965 Level 3 Est. Patient 12:41:58 FOOT GATHERER Piotr Daley [facility] CPT-60232 Level 3 Est. Patient 09:21:24 CDT Piotr Daley [facility] CPT-99685 Level 3 Est. Patient 09:21:11 CDT Piotr Daley [facility] CPT-28958 Level 3 Est. Patient 11:16:29 FOOT GATHERER Piotr Daley [facility] CPT-68280 Level 3 Est. Patient 18:40:19 FOOT GATHERER Piotr Daley [facility] CPT-06983 Level 3 Est. Patient 19:30:50 CDT Piotr Daley [facility] CPT-82816 Level 3 Est. Patient 22:06:44 CDT Katrina Rinaldi MD PhD [facility] CPT-37146 Level 3 Est. Patient 14:20:00 CDT Piotr Daley [facility] CPT-60499 Level 3 Est. Patient 14:15:22 FOOT GATHERER Piotr Daley [facility] CPT-79507 Level 3 Est. Patient 20:19:57 FOOT GATHERER Piotr Daley [facility] CPT-32063 Level 3 Est. Patient 16:44:32 CDT Piotr Daley [facility] CPT-90193 Level 3 Est. Patient 08:48:46 FOOT GATHERER Piotr Daley [facility] CPT-56886 Level 3 Est. Patient 21:01:21 CDT Piotr Daley [facility] Procedures Code Procedure Name Date Entry Date Standard Description CPT-14943 BMP - LAB USE ONLY 17:19:11 FOOT GATHERER CPT-21645 PT/INR - LAB USE ONLY 17:19:10 FOOT GATHERER CPT-36299 Venipuncture Draw Fee 17:19:10 FOOT GATHERER CPT-21674 PT/INR - LAB USE ONLY 08:12:25 FOOT GATHERER CPT-97414 Venipuncture Draw Fee 08:12:24 FOOT GATHERER CPT-76151 Venipuncture Draw Fee 11:31:07 FOOT GATHERER CPT-99973 TPSA - LAB USE ONLY 11:31:07 FOOT GATHERER CPT-83807 PT/INR - LAB USE ONLY 11:31:07 FOOT GATHERER CPT-G0439 [facility] Annual Wellness Exam 09:59:29 FOOT GATHERER CPT-34642 Creatinine - LAB USE ONLY 14:37:55 FOOT GATHERER CPT-92922 PT/INR - LAB USE ONLY 14:37:55 FOOT GATHERER CPT-78670 Venipuncture Draw Fee 14:37:55 FOOT GATHERER CPT-81656 LS spine comp w obliques - XRAY USE ONLY 12:59:25 FOOT GATHERER CPT-88587 PT/INR - LAB USE ONLY 13:49:20 CDT CPT-17150 Venipuncture Draw Fee 13:49:19 CDT CPT-06809 PT/INR - LAB USE ONLY 15:48:49 CDT CPT-63472 Venipuncture Draw Fee 15:48:49 CDT CPT-13939 Venipuncture Draw Fee 11:31:59 CDT CPT-16240 PT/INR - LAB USE ONLY 11:31:59 CDT CPT-44003 Venipuncture Draw Fee 13:29:15 CDT CPT-36826 Thoracolumbar AP/Lat 15:19:19 FOOT GATHERER CPT-G0438 Initial Annual Wellness Exam 12:18:54 FOOT GATHERER CPT-91508 Knee 3V 09:57:38 CDT CPT-OV Office Visit 15:45:01 FOOT GATHERER CPT-73090 Abd compl w upright 17:10:25 CDT
--- OUTSIDE RECORDS SUMMARY | 2018-07-18 11:04 | XMS REPORT | Clinical Summary ---
Author Author Admin, [employer] Organization [employer] Address Unknown Phone Unavailable Allergies, Adverse Reactions, [...] neoplasm of prostate V10.46 Active Alina Meyers RN RECOVERY Personal history of malignant neoplasm of prostate [...] THROMBOPHLEBITIS, LEG, 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 Inactive Sirisha Chen [employer] Seborrheic keratosis ICD-702.19 Inactive Sirisha Chen [employer] Bronchitis-Acute ICD-466.0 Inactive Piotr Daley DO Leg pain, right ICD-729.5 Inactive Sirisha Chen [employer] Right leg pain ICD-729.5 Inactive Sirisha Chen [employer] Bronchitis-Acute ICD-466.0 Inactive Sirisha Chen [employer] Knee pain, left ICD-719.46 Inactive Sirisha Chen [employer] Actinic keratoses ICD-702.0 Inactive Sirisha Chen [employer] Back pain, thoracic region, left ICD-724.1 Inactive Piotr Katie Edi DO Thoracic back pain ICD-724.5 Inactive Sirisha Gustavo AGEEN Back pain lumbar ICD-724.2 Inactive Sirisha Chen [employer] Insect bite ICD-919.4 Inactive Sirisha Chen [employer] Pruritus ICD-698.9 Inactive Sirisha Chen [employer] 04/09 Medication List Medication Instructions Start Date Stop Date Generic Name NDC Status Provider Patient Instruction TESSALMARTIN PERLES 100 MG ORAL CAPSULE 1-2 tablet by mouth 3 times daily 04/16 BENZONATATE [id number] Active Piotr Daley DO Active PREDNISONE 10 MG ORAL TABLET 1 tablet by mouth daily PREDNISONE 86673134535 Active Piotr Daley DO Active CYCLOBENZAPRINE HCL 10 MG ORAL TABLET 1 tablet by mouth three times daily as needed for muscle spasm/pain CYCLOBENZAPRINE HCL 30296726976 Active Piotr Daley DO Active PREDNISONE 20 MG ORAL TABLET two tabs by mouth today, then one tab by mouth days two and three PREDNISONE 78520256960 Active Piotr Daley DO Active ZITHROMAX 250 MG ORAL TABLET Take two (2 ) tablets day one, then one (1) tablet a day for four (4) more days AZITHROMYCIN 10113113881 No Longer Active Piotr Daley DO Active PROAIR HFA 108 (90 BASE) MCG/ACT INHALATION AEROSOL SOLUTION 1-2 puffs four times a day as needed ALBUTEROL SULFATE 24189876099 No Longer Active Emelyn Norris Active DOXYCYCLINE HYCLATE 100 MG ORAL CAPSULE 1 cap by mouth BID x10 days DOXYCYCLINE HYCLATE 06127294635 No Longer Active Nella Harris APRN Active WARFARIN SODIUM 5 MG ORAL TABLET 1 tablet daily M-S, 1/2 tab on Heart WARFARIN SODIUM 21267605160 Active Piotr Daely DO Active PREDNISONE 20 MG ORAL TABLET 2 tabs daily for 3 days, 1 tab daily for 3 days, 1/2 tab daily for 2 days PREDNISONE 32808619248 No Longer Active Matthew Rangel MD Active TRAMADOL HCL 50 MG ORAL TABLET 1 po tid with ES Tylenol TRAMADOL HCL 87090311956 No Longer Active Matthew Rangel MD Active GABAPENTIN 300 MG ORAL CAPSULE 1 po q hs for nerve pain GABAPENTIN 69447057065 No Longer Active Matthew Rangel MD Active PREDNISONE 20 MG ORAL TABLET 2 tablets today, then 1 tablet days 2 through 4 PREDNISONE 58816585375 No Longer Active Piotr Daley DO Active AZITHROMYCIN 250 MG ORAL TABLET 2 po qd x 1 day, then 1 po qd x 4 days 07/12 AZITHROMYCIN 71031052245 No Longer Active Piotr Daley DO Active IBUPROFEN 800 MG ORAL TABLET 1 tab every 8 hours as needed 07/12 IBUPROFEN 67901489471 No Longer Active Piotr Daley DO Active LOMOTIL 2.5-0.025 MG ORAL TABLET 1 to 2 four times a day as needed for diarrhea DIPHENOXYLATE-ATROPINE 06280292570 No Longer Active Piotr Daley DO Active WARFARIN SODIUM 4 MG ORAL TABLET 1 tab every evening WARFARIN SODIUM 98833984210 No Longer Active Piotr Daley DO Active PREDNISONE 20 MG ORAL TABLET 1 tablet twice daily for 2 days, then 1 tablet once daily for 2 days PREDNISONE 17009628243 No Longer Active Piotr Daley DO Active PROMETHAZINE HCL 25 MG ORAL TABLET 1 four times a day as needed for nausea/ vomiting PROMETHAZINE HCL 48570060085 No Longer Active Piotr Daley DO Active TUSSIONEX PENNKINETIC ER 10-8 MG/5ML ORAL SUSPENSION EXTENDED RELEASE 5ml po q12hr PRN Cough HYDROCOD POLST-CHLORPHEN POLST 49949364258 No Longer Active Piotr W Edi DO Active AZITHROMYCIN 250 MG ORAL TABLET 2 po qd x 1 day, then 1 po qd x 4 days 10/13 AZITHROMYCIN 49957929628 No Longer Active Piotr Daley DO Active AZITHROMYCIN 250 MG ORAL TABLET 2 po qd x 1 day, then 1 po qd x 4 days 05/07 AZITHROMYCIN 51821155381 No Longer Active Piotr Daley DO Active LISINOPRIL-HYDROCHLOROTHIAZIDE 10-12.5 MG ORAL TABLET 1 tab by mouth daily LISINOPRIL-HYDROCHLOROTHIAZIDE 21101595051 Active Piotr Daley DO Active LISINOPRIL 10 MG ORAL TABLET 1/2-1 tab po every other day LISINOPRIL 37976088240 No Longer Active Piotr Daley DO Active VENTOLIN HFA 108 (90 Base) MCG/ACT INHALATION AEROSOL SOLUTION 2 puffs four times a day PRN cough ALBUTEROL SULFATE 56465327502 No Longer Active Piotr Daley DO Active NYSTATIN-TRIAMCINOLONE 164326-3.1 UNIT/GM-% EXTERNAL CREAM Apply to area BID NYSTATIN-TRIAMCINOLONE 23528167207 No Longer Active Alena Chavira [employer] Active PHISOHEX 3 % LIQD Use Directed HEXACHLOROPHENE 50055945275 No Longer Active Sandra [place] Active AZITHROMYCIN 250 MG ORAL TABLET 2 po qd x 1 day, then 1 po qd x 4 days 10/21 AZITHROMYCIN 69956824999 No Longer Active Katrina Rinaldi MD PhD Active AZITHROMYCIN 250 MG ORAL TABLET 2 po qd x 1 day, then 1 po qd x 4 days 10/16 AZITHROMYCIN 56344440418 No Longer Active Piotr Daley DO Active AZITHROMYCIN 500 MG INTRAVENOUS SOLUTION RECONSTITUTED 1 po q day AZITHROMYCIN 00910779235 No Longer Active Piotr Daley DO Active NYSTATIN-TRIAMCINOLONE 596820-9.1 UNIT/GM-% EXTERNAL CREAM apply bid NYSTATIN-TRIAMCINOLONE 43685017358 No Longer Active Piotr Daley DO Active IBUPROFEN 800 MG ORAL TABLET 1 po q 8 hours prn pain sparinly IBUPROFEN 98039776102 No Longer Active Piotr Daley DO Active VITAMIN D3 5000 UNIT ORAL CAPSULE 1 po daily CHOLECALCIFEROL 77214830940 Active Piotr Daley DO Active IBUPROFEN 800 MG ORAL TABLET 1 po q 8 hours prn pain sparinly IBUPROFEN 800 MG ORAL TABLET 171535 IBUPROFEN Inactive NYSTATIN-TRIAMCINOLONE 443727-1.1 UNIT/GM-% EXTERNAL CREAM apply bid NYSTATIN-TRIAMCINOLONE 035197-4.1 UNIT/GM-% EXTERNAL CREAM 3959896 NYSTATIN-TRIAMCINOLONE Inactive AZITHROMYCIN 500 MG INTRAVENOUS SOLUTION RECONSTITUTED 1 po q day AZITHROMYCIN 500 MG INTRAVENOUS SOLUTION RECONSTITUTED 26066928838 AZITHROMYCIN Inactive VENTOLIN HFA 108 (90 Base) MCG/ACT INHALATION AEROSOL SOLUTION 2 puffs four times a day PRN cough VENTOLIN HFA 108 (90 Base) MCG/ ACT INHALATION AEROSOL SOLUTION ALBUTEROL SULFATE Inactive LISINOPRIL 10 MG ORAL TABLET 1/2-1 tab po every other day LISINOPRIL 10 MG ORAL TABLET 172464 LISINOPRIL Inactive TUSSIONEX PENNKINETIC ER 10-8 MG/5ML ORAL SUSPENSION EXTENDED RELEASE 5ml po q12hr PRN Cough TUSSIONEX PENNKINETIC ER 10-8 MG/5ML ORAL SUSPENSION EXTENDED RELEASE HYDROCOD POLST-CHLORPHEN POLST Inactive PROMETHAZINE HCL 25 MG ORAL TABLET 1 four times a day as needed for nausea/ vomiting PROMETHAZINE HCL 25 MG ORAL TABLET 664138 PROMETHAZINE HCL Inactive PREDNISONE 20 MG ORAL TABLET 1 tablet twice daily for 2 days, then 1 tablet once daily for 2 days PREDNISONE 20 MG ORAL TABLET 054874 PREDNISONE Inactive WARFARIN SODIUM 4 MG ORAL TABLET 1 tab every evening WARFARIN SODIUM 4 MG ORAL TABLET 729444 WARFARIN SODIUM Inactive LOMOTIL 2.5-0.025 MG ORAL TABLET 1 to 2 four times a day as needed for diarrhea LOMOTIL 2.5-0.025 MG ORAL TABLET 6813010 DIPHENOXYLATE-ATROPINE Inactive IBUPROFEN 800 MG ORAL TABLET 1 tab every 8 hours as needed 07/12 IBUPROFEN 800 MG ORAL TABLET 191990 IBUPROFEN Inactive PREDNISONE 20 MG ORAL TABLET 2 tablets today, then 1 tablet days 2 through 4 PREDNISONE 20 MG ORAL TABLET 416521 PREDNISONE Inactive GABAPENTIN 300 MG ORAL CAPSULE 1 po q hs for nerve pain GABAPENTIN 300 MG ORAL CAPSULE 924228 GABAPENTIN Inactive TRAMADOL HCL 50 MG ORAL TABLET 1 po tid with ES Tylenol TRAMADOL HCL 50 MG ORAL TABLET 290179 TRAMADOL HCL Inactive PROAIR HFA 108 (90 BASE) MCG/ACT INHALATION AEROSOL SOLUTION 1-2 puffs four times a day as needed PROAIR HFA 108 (90 BASE) MCG/ACT INHALATION AEROSOL SOLUTION ALBUTEROL SULFATE Inactive AZITHROMYCIN 250 MG ORAL TABLET 2 po qd x 1 day, then 1 po qd x 4 days 10/16 AZITHROMYCIN 250 MG ORAL TABLET 362204 AZITHROMYCIN Inactive AZITHROMYCIN 250 MG ORAL TABLET 2 po qd x 1 day, then 1 po qd x 4 days 10/21 AZITHROMYCIN 250 MG ORAL TABLET 635471 AZITHROMYCIN Inactive NYSTATIN-TRIAMCINOLONE 507038-7.1 UNIT/GM-% EXTERNAL CREAM Apply to area BID NYSTATIN-TRIAMCINOLONE 568002-4.1 UNIT/GM-% EXTERNAL CREAM 0111888 NYSTATIN-TRIAMCINOLONE Inactive AZITHROMYCIN 250 MG ORAL TABLET 2 po qd x 1 day, then 1 po qd x 4 days 05/07 AZITHROMYCIN 250 MG ORAL TABLET 107980 AZITHROMYCIN Inactive AZITHROMYCIN 250 MG ORAL TABLET 2 po qd x 1 day, then 1 po qd x 4 days 10/13 AZITHROMYCIN 250 MG ORAL TABLET 257928 AZITHROMYCIN Inactive AZITHROMYCIN 250 MG ORAL TABLET 2 po qd x 1 day, then 1 po qd x 4 days 07/12 AZITHROMYCIN 250 MG ORAL TABLET 852386 AZITHROMYCIN Inactive PREDNISONE 20 MG ORAL TABLET 2 tabs daily for 3 days, 1 tab daily for 3 days, 1/2 tab daily for 2 days PREDNISONE 20 MG ORAL TABLET 167482 PREDNISONE Inactive DOXYCYCLINE HYCLATE 100 MG ORAL CAPSULE 1 cap by mouth BID x10 days DOXYCYCLINE HYCLATE 100 MG ORAL CAPSULE 6956927 DOXYCYCLINE HYCLATE Inactive ZITHROMAX 250 MG ORAL TABLET Take two (2 ) tablets day one, then one (1) tablet a day for four (4) more days ZITHROMAX 250 MG ORAL TABLET 647521 AZITHROMYCIN Inactive Advance Directives Directive Description Start [...] Panel - Chemistry sodium, serum 141 mmol/L 258-503 8072/01/24 potassium, serum 4.3 mmol/L 3.5-5.2 chloride, serum [...] % 11.0-15.0 platelet count 172 THOUSAND/UL 10*3/mm3 767-055 0684/04/12 mean platelet volume 8.6 fL 7.5-12.5 Lab Report: Prothrombin Time - Coagulation prothrombin time (patient) 27.8 SECS s 11.1-13.4 international normalized ratio (INR) 4.2 1.0-3.5 Lab Report: Prothrombin Time Hemochron - Coagulation prothrombin time (patient) 33.0 SECS s 18.9-24.9 Encounters Code Encounter Date Provider Facility CPT-70383 Level 3 Est. Patient 12:33:59 CASTING ASSISTANT Piotr Daley [facility] CPT-51290 Level 3 Est. Patient 15:56:17 CASTING ASSISTANT Piotr Katie Daley [facility] CPT-81681 Level 3 Est. Patient 10:34:54 CASTING ASSISTANT Piotr Katie Daley [facility] CPT-13211 Level 3 Est. Patient 17:10:19 CDT Nella Harris APRN [facility] CPT-30223 Level 3 Est. Patient 10:48:17 CASTING ASSISTANT Matthew Rangel MD [facility] CPT-76508 Level 4 Est. Patient 17:15:07 CASTING ASSISTANT Piotr Daley [facility] CPT-05359 Level 3 Est. Patient 12:46:13 CASTING ASSISTANT Piotr Daley [facility] CPT-06103 Level 3 Est. Patient 15:14:31 CASTING ASSISTANT Piotr Katie Daley [facility] CPT-78966 Level 3 Est. Patient 09:20:13 CASTING ASSISTANT Piotr Daley [facility] CPT-67613 Level 3 Est. Patient 09:49:40 CDT Piotr Wilson [facility] CPT-26649 Level 3 Est. Patient 16:28:11 CDT Piotr Daley [facility] CPT-01836 Level 3 Est. Patient 12:41:58 CASTING ASSISTANT Piotr Daley [facility] CPT-59370 Level 3 Est. Patient 09:21:24 CDT Piotr Wilson [facility] CPT-81978 Level 3 Est. Patient 09:21:11 CDT Piotr Wilson [facility] CPT-16674 Level 3 Est. Patient 11:16:29 CASTING ASSISTANT Piotr Daley [facility] CPT-70386 Level 3 Est. Patient 18:40:19 CASTING ASSISTANT Piotr Daley [facility] CPT-11248 Level 3 Est. Patient 19:30:50 CDT Piotr Daley [facility] CPT-98997 Level 3 Est. Patient 22:06:44 CDT Katrina Rinaldi MD [facility] CPT-87656 Level 3 Est. Patient 14:20:00 CDT Piotr Daley [facility] CPT-48858 Level 3 Est. Patient 14:15:22 CASTING ASSISTANT Piotr Daley [facility] CPT-79821 Level 3 Est. Patient 20:19:57 CASTING ASSISTANT Piotr Daley [facility] CPT-70471 Level 3 Est. Patient 16:44:32 CDT Piotr Daley [facility] CPT-40404 Level 3 Est. Patient 08:48:46 CASTING ASSISTANT Piotr Daley DO [facility] CPT-11512 Level 3 Est. Patient 21:01:21 CDT Piotr Wilson [facility] Procedures Code Procedure Name Date Entry Date Standard Description CPT-27963 Chest, 2 views 12:55:58 CASTING ASSISTANT CPT-G0439 [facility] Annual Wellness Exam 10:34:52 CASTING ASSISTANT CPT-62810 BMP - LAB USE ONLY 17:19:11 CASTING ASSISTANT CPT-78366 PT/INR - LAB USE ONLY 17:19:10 CASTING ASSISTANT CPT-04160 Venipuncture Draw Fee 17:19:10 CASTING ASSISTANT CPT-71840 PT/INR - LAB USE ONLY 08:12:25 CASTING ASSISTANT CPT-18234 Venipuncture Draw Fee 08:12:24 CASTING ASSISTANT CPT-69323 Venipuncture Draw Fee 11:31:07 CASTING ASSISTANT CPT-18747 TPSA - LAB USE ONLY 11:31:07 CASTING ASSISTANT CPT-10783 PT/INR - LAB USE ONLY 11:31:07 CASTING ASSISTANT CPT-G0439 Subsequent Annual Wellness Exam 09:59:29 CASTING ASSISTANT CPT-36147 Creatinine - LAB USE ONLY 14:37:55 CASTING ASSISTANT CPT-17040 PT/INR - LAB USE ONLY 14:37:55 CASTING ASSISTANT CPT-02208 Venipuncture Draw Fee 14:37:55 CASTING ASSISTANT CPT-18840 LS spine comp w obliques - XRAY USE ONLY 12:59:25 CASTING ASSISTANT CPT-09991 PT/INR - LAB USE ONLY 13:49:20 CDT CPT-15972 Venipuncture Draw Fee 13:49:19 CDT CPT-90948 PT/INR - LAB USE ONLY 15:48:49 CDT CPT-40817 Venipuncture Draw Fee 15:48:49 CDT CPT-21373 Venipuncture Draw Fee 11:31:59 CDT CPT-14441 PT/INR - LAB USE ONLY 11:31:59 CDT CPT-51116 Venipuncture Draw Fee 13:29:15 CDT CPT-45752 Thoracolumbar AP/Lat 15:19:19 CASTING ASSISTANT CPT-G0438 Initial Annual Wellness Exam 12:18:54 CASTING ASSISTANT CPT-49215 Knee 3V 09:57:38 CDT CPT-OV Office Visit 15:45:01 CASTING ASSISTANT CPT-22739 Abd compl w upright 17:10:25 CDT
--- OUTSIDE RECORDS SUMMARY | 2018-07-18 11:04 | XMS REPORT | Clinical Summary ---
Author Author Admin, [employer] Organization [employer] Address Unknown Phone Unavailable Allergies, Adverse Reactions, [...] Coronary atherosclerosis of unspecified type of vessel, elim ira or graft Back pain, thoracic region, [...] po q hs for nerve pain GABAPENTIN 44232992766 Active Piotr Daley DO Active WARFARIN SODIUM 5 MG TABS 1 tablet daily WARFARIN SODIUM 43801607930 Active Simi Meyers Active TRAMADOL HCL 50 MG TABS 1 po tid with ES Tylenol TRAMADOL HCL 26430726290 Active Piotr Daley DO Active PREDNISONE 20 MG TAB 2 tablets today, then 1 tablet days 2 through 4 PREDNISONE 86341096320 No Longer Active Piotr Daley DO Active AZITHROMYCIN 250 MG TABS 2 po qd x 1 day, then 1 po qd x 4 days AZITHROMYCIN 72544181853 No Longer Active Piotr Daley DO Active IBUPROFEN 800 MG TABS 1 tab every 8 hours as needed IBUPROFEN 72065700276 No Longer Active Piotr Daley DO Active LOMOTIL 2.5-0.025 MG TAB 1 to 2 four times a day as needed for diarrhea 10/13 DIPHENOXYLATE-ATROPINE 82248308373 No Longer Active Piotr Daley DO Active WARFARIN SODIUM 4 MG TABS 1 tab every evening WARFARIN SODIUM 04383442886 No Longer Active Piotr Daley DO Active PREDNISONE 20 MG TAB 1 tablet twice daily for 2 days, then 1 tablet once daily for 2 days PREDNISONE 48622828734 No Longer Active Piotr Daley DO Active PROMETHAZINE HCL 25 MG TABS 1 four times a day as needed for nausea/vomiting PROMETHAZINE HCL 48535305342 No Longer Active Piotr Daley DO Active TUSSIONEX PENNKINETIC ER 10-8 MG/5ML LQCR 5ml po q12hr PRN Cough HYDROCOD POLST-CHLORPHEN POLST 88651260148 No Longer Active Piotr Daley DO Active AZITHROMYCIN 250 MG TABS 2 po qd x 1 day, then 1 po qd x 4 days AZITHROMYCIN 58327593057 No Longer Active Piotr Daley DO Active AZITHROMYCIN 250 MG TABS 2 po qd x 1 day, then 1 po qd x 4 days AZITHROMYCIN 51126796466 No Longer Active Piotr Daley DO Active LISINOPRIL-HYDROCHLOROTHIAZIDE 10-12.5 MG TABS 1 tab by mouth daily LISINOPRIL-HYDROCHLOROTHIAZIDE 78688095149 Active Simi Meyers Active LISINOPRIL 10 MG TABS 1/2-1 tab po every other day LISINOPRIL 08274538092 No Longer Active Piotr Daley DO Active VENTOLIN HFA 108 (90 BASE) MCG/ACT AERS 2 puffs four times a day PRN cough ALBUTEROL SULFATE 25829230356 No Longer Active Piotr Daley DO Active NYSTATIN-TRIAMCINOLONE 851944-4.1 UNIT/GM-% CREA Apply to area BID NYSTATIN-TRIAMCINOLONE 45955172785 No Longer Active Alena Chavira CHANGE CONTROL MANAGER Active PHISOHEX 3 % LIQD Use Directed HEXACHLOROPHENE 44874124491 No Longer Active Sandra [place] Active AZITHROMYCIN 250 MG TABS 2 po qd x 1 day, then 1 po qd x 4 days AZITHROMYCIN 82745318999 No Longer Active Katrina Rinaldi MD PhD Active AZITHROMYCIN 250 MG TABS 2 po qd x 1 day, then 1 po qd x 4 days AZITHROMYCIN 58859055528 No Longer Active Piotr Daley DO Active AZITHROMYCIN 500 MG SOLR 1 po q day AZITHROMYCIN 09339029917 No Longer Active Piotr Daley DO Active NYSTATIN-TRIAMCINOLONE 678783-6.1 UNIT/GM-% CREA apply bid 08/19 NYSTATIN-TRIAMCINOLONE 42417383211 No Longer Active Piotr Daley DO Active IBUPROFEN 800 MG TABS 1 po q 8 hours prn pain sparinly IBUPROFEN 89801356813 No Longer Active Piotr Daley DO Active VITAMIN D3 5000 UNIT CAPS 1 po daily CHOLECALCIFEROL 08311877601 Active Piotr Daley DO Active IBUPROFEN 800 MG TABS 1 po q 8 hours prn pain sparinly IBUPROFEN 800 MG TABS 570303 IBUPROFEN Inactive IBUPROFEN 800 MG TABS 1 tab every 8 hours as needed IBUPROFEN 800 MG TABS 191720 IBUPROFEN Inactive LOMOTIL 2.5-0.025 MG TAB 1 to 2 four times a day as needed for diarrhea 10/13 LOMOTIL 2.5-0.025 MG TAB 1394234 DIPHENOXYLATE-ATROPINE Inactive NYSTATIN-TRIAMCINOLONE 094600-5.1 UNIT/GM-% CREA Apply to area BID NYSTATIN-TRIAMCINOLONE 139894-4.1 UNIT/GM-% CREA 6873315 NYSTATIN-TRIAMCINOLONE Inactive NYSTATIN-TRIAMCINOLONE 185326-7.1 UNIT/GM-% CREA apply bid 08/19 NYSTATIN-TRIAMCINOLONE 580963-0.1 UNIT/GM-% CREA 2658519 NYSTATIN- TRIAMCINOLONE Inactive PREDNISONE 20 MG TAB 1 tablet twice daily for 2 days, then 1 tablet once daily for 2 days PREDNISONE 20 MG TAB 505747 PREDNISONE Inactive PREDNISONE 20 MG TAB 2 tablets today, then 1 tablet days 2 through 4 PREDNISONE 20 MG TAB 295162 PREDNISONE Inactive PROMETHAZINE HCL 25 MG TABS 1 four times a day as needed for nausea/vomiting PROMETHAZINE HCL 25 MG TABS 021702 PROMETHAZINE HCL Inactive LISINOPRIL 10 MG TABS 1/2-1 tab po every other day LISINOPRIL 10 MG TABS 597713 LISINOPRIL Inactive AZITHROMYCIN 250 MG TABS 2 po qd x 1 day, then 1 po qd x 4 days AZITHROMYCIN 250 MG TABS 6799314 AZITHROMYCIN Inactive AZITHROMYCIN 250 MG TABS 2 po qd x 1 day, then 1 po qd x 4 days AZITHROMYCIN 250 MG TABS 1537564 AZITHROMYCIN Inactive AZITHROMYCIN 250 MG TABS 2 po qd x 1 day, then 1 po qd x 4 days AZITHROMYCIN 250 MG TABS 1842027 AZITHROMYCIN Inactive AZITHROMYCIN 250 MG TABS 2 po qd x 1 day, then 1 po qd x 4 days AZITHROMYCIN 250 MG TABS 4236274 AZITHROMYCIN Inactive AZITHROMYCIN 250 MG TABS 2 po qd x 1 day, then 1 po qd x 4 days AZITHROMYCIN 250 MG TABS 5864094 AZITHROMYCIN Inactive AZITHROMYCIN 500 MG SOLR 1 po q day AZITHROMYCIN 500 MG SOLR 79307481758 AZITHROMYCIN Inactive WARFARIN SODIUM 4 MG TABS 1 tab every evening WARFARIN SODIUM 4 MG TABS 961709 WARFARIN SODIUM Inactive VENTOLIN HFA 108 (90 [...] Panel - Chemistry sodium, serum 141 mmol/L 631-236 2840/01/24 potassium, serum 4.3 mmol/L 3.5-5.2 chloride, serum [...] Panel - Chemistry sodium, serum 141 mmol/L 850-356 2571/06/28 carbon dioxide, venous blood 31.0 mmol/L 21.0-32.0 [...] (INR) 2.5 1.0-3.5 international normalized ratio (INR) 2.3 1.0-3.5 prothrombin time (patient) 23.8 SECS s 11.1-13.4 international normalized ratio (INR) 3.2 1.0-3.5 prothrombin time (patient) 19.8 SECS s 11.1-13.4 international normalized ratio (INR) 2.2 1.0-3.5 prothrombin time (patient) 18.1 SECS s 11.1-13.4 international normalized ratio (INR) 2.3 1.0-3.5 prothrombin time (patient) 18.3 SECS s 11.1-13.4 prothrombin time (patient) 23.1 SECS s 11.1-13.4 Encounters Code Encounter Date Provider Facility CPT-82454 Level 4 Est. Patient 17:15:07 EXECUTIVE COACH Piotr Daley [facility] CPT-08157 Level 3 Est. Patient 12:46:13 EXECUTIVE COACH Piotr Daley [facility] CPT-42105 Level 3 Est. Patient 15:14:31 EXECUTIVE COACH Piotr Katie Daley [facility] CPT-53135 Level 3 Est. Patient 09:20:13 EXECUTIVE COACH Piotr Daley [facility] CPT-96243 Level 3 Est. Patient 09:49:40 CDT Piotr Daley [facility] CPT-36309 Level 3 Est. Patient 16:28:11 CDT Piotr Daley [facility] CPT-67133 Level 3 Est. Patient 12:41:58 EXECUTIVE COACH Piotr Daley [facility] CPT-46341 Level 3 Est. Patient 09:21:24 CDT Piotr Daley [facility] CPT-76473 Level 3 Est. Patient 09:21:11 CDT Piotr Wilson [facility] CPT-56850 Level 3 Est. Patient 11:16:29 EXECUTIVE COACH Piotr Daley [facility] CPT-38622 Level 3 Est. Patient 18:40:19 EXECUTIVE COACH Piotr Daley [facility] CPT-11590 Level 3 Est. Patient 19:30:50 CDT Piotr Daley [facility] CPT-99544 Level 3 Est. Patient 22:06:44 CDT Katrina Rnialdi MD PhD [facility] CPT-82850 Level 3 Est. Patient 14:20:00 CDT Piotr Daley [facility] CPT-29718 Level 3 Est. Patient 14:15:22 EXECUTIVE COACH Piotr Daley [facility] CPT-33732 Level 3 Est. Patient 20:19:57 EXECUTIVE COACH Piotr Daley [facility] CPT-84293 Level 3 Est. Patient 16:44:32 CDT Piotr Daley [facility] CPT-04855 Level 3 Est. Patient 08:48:46 EXECUTIVE COACH Piotr Daley [facility] CPT-06469 Level 3 Est. Patient 21:01:21 CDT Piotr Daley [facility] Procedures Code Procedure Name Date Entry Date Standard Description CPT-74026 PT/INR - LAB USE ONLY 08:12:25 EXECUTIVE COACH CPT-34380 Venipuncture Draw Fee 08:12:24 EXECUTIVE COACH CPT-79395 Venipuncture Draw Fee 11:31:07 EXECUTIVE COACH CPT-48246 TPSA - LAB USE ONLY 11:31:07 EXECUTIVE COACH CPT-26698 PT/INR - LAB USE ONLY 11:31:07 EXECUTIVE COACH CPT-G0439 [facility] Annual Wellness Exam 09:59:29 EXECUTIVE COACH CPT-94732 Creatinine - LAB USE ONLY 14:37:55 EXECUTIVE COACH CPT-02934 PT/INR - LAB USE ONLY 14:37:55 EXECUTIVE COACH CPT-39699 Venipuncture Draw Fee 14:37:55 EXECUTIVE COACH CPT-42426 LS spine comp w obliques - XRAY USE ONLY 12:59:25 EXECUTIVE COACH CPT-79707 PT/INR - LAB USE ONLY 13:49:20 CDT CPT-63108 Venipuncture Draw Fee 13:49:19 CDT CPT-59536 PT/INR - LAB USE ONLY 15:48:49 CDT CPT-63701 Venipuncture Draw Fee 15:48:49 CDT CPT-73275 Venipuncture Draw Fee 11:31:59 CDT CPT-41863 PT/INR - LAB USE ONLY 11:31:59 CDT CPT-96712 Venipuncture Draw Fee 13:29:15 CDT CPT-67591 Thoracolumbar AP/Lat 15:19:19 EXECUTIVE COACH CPT-G0438 Initial Annual Wellness Exam 12:18:54 EXECUTIVE COACH CPT-85967 Knee 3V 09:57:38 CDT CPT-OV Office Visit 15:45:01 EXECUTIVE COACH CPT-24325 Abd compl w upright 17:10:25 CDT
--- OUTSIDE RECORDS SUMMARY | 2018-07-18 11:05 | XMS REPORT | Clinical Summary ---
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 Meyers METAL INSPECTOR Personal history of malignant neoplasm of prostate Coronary artery disease 414.00 Active Alina Meyers APRN Coronary atherosclerosis of unspecified type of vessel, inupiat or graft Back pain, thoracic region, left [...] po q hs for nerve pain GABAPENTIN 40985325731 Active Piotr Daley DO Active WARFARIN SODIUM 5 MG TABS 1 tablet daily WARFARIN SODIUM 20036092267 Active Simi Meyers Active TRAMADOL HCL 50 MG TABS 1 po tid with ES Tylenol TRAMADOL HCL 04112614792 Active Piotr Daley DO Active PREDNISONE 20 MG TAB 2 tablets today, then 1 tablet days 2 through 4 PREDNISONE 29985438283 No Longer Active Piotr Daley DO Active AZITHROMYCIN 250 MG TABS 2 po qd x 1 day, then 1 po qd x 4 days AZITHROMYCIN 72128615277 No Longer Active Piotr Daley DO Active IBUPROFEN 800 MG TABS 1 tab every 8 hours as needed IBUPROFEN 31406501701 No Longer Active Piotr Daley DO Active LOMOTIL 2.5-0.025 MG TAB 1 to 2 four times a day as needed for diarrhea 10/13 DIPHENOXYLATE-ATROPINE 60344131444 No Longer Active Piotr Daley DO Active WARFARIN SODIUM 4 MG TABS 1 tab every evening WARFARIN SODIUM 13426363787 No Longer Active Piotr Daley DO Active PREDNISONE 20 MG TAB 1 tablet twice daily for 2 days, then 1 tablet once daily for 2 days PREDNISONE 73373232958 No Longer Active Piotr Daley DO Active PROMETHAZINE HCL 25 MG TABS 1 four times a day as needed for nausea/vomiting PROMETHAZINE HCL 37531580867 No Longer Active Piotr Daley DO Active TUSSIONEX PENNKINETIC ER 10-8 MG/5ML LQCR 5ml po q12hr PRN Cough HYDROCOD POLST-CHLORPHEN POLST 27915964517 No Longer Active Piotr Daley DO Active AZITHROMYCIN 250 MG TABS 2 po qd x 1 day, then 1 po qd x 4 days AZITHROMYCIN 45198229328 No Longer Active Piotr Daley DO Active AZITHROMYCIN 250 MG TABS 2 po qd x 1 day, then 1 po qd x 4 days AZITHROMYCIN 29517864357 No Longer Active Piotr Daley DO Active LISINOPRIL-HYDROCHLOROTHIAZIDE 10-12.5 MG TABS 1 tab by mouth daily LISINOPRIL-HYDROCHLOROTHIAZIDE 07327317757 Active Hilary Ma MA Active LISINOPRIL 10 MG TABS 1/2-1 tab po every other day LISINOPRIL 24845870156 No Longer Active Piotr Daley DO Active VENTOLIN HFA 108 (90 BASE) MCG/ACT AERS 2 puffs four times a day PRN cough ALBUTEROL SULFATE 77749397581 No Longer Active Piotr Daley DO Active NYSTATIN-TRIAMCINOLONE 438952-8.1 UNIT/GM-% CREA Apply to area BID NYSTATIN-TRIAMCINOLONE 41509218101 No Longer Active Alena Chavira DENTAL PRACTICE MANAGER Active PHISOHEX 3 % LIQD Use Directed HEXACHLOROPHENE 73682353790 No Longer Active Sandra [place] Active AZITHROMYCIN 250 MG TABS 2 po qd x 1 day, then 1 po qd x 4 days AZITHROMYCIN 55183559534 No Longer Active Katrina Rinaldi MD PhD Active AZITHROMYCIN 250 MG TABS 2 po qd x 1 day, then 1 po qd x 4 days AZITHROMYCIN 41699673833 No Longer Active Piotr Daley DO Active AZITHROMYCIN 500 MG SOLR 1 po q day AZITHROMYCIN 97248213789 No Longer Active Piotr Daley DO Active NYSTATIN-TRIAMCINOLONE 447131-3.1 UNIT/GM-% CREA apply bid 08/19 NYSTATIN-TRIAMCINOLONE 20224750697 No Longer Active Piotr Daley DO Active IBUPROFEN 800 MG TABS 1 po q 8 hours prn pain sparinly IBUPROFEN 53884176201 No Longer Active Piotr Daley DO Active VITAMIN D3 5000 UNIT CAPS 1 po daily CHOLECALCIFEROL 83898870129 Active Piotr Daley DO Active IBUPROFEN 800 MG TABS 1 po q 8 hours prn pain sparinly IBUPROFEN 800 MG TABS 901389 IBUPROFEN Inactive NYSTATIN-TRIAMCINOLONE 193651-3.1 UNIT/GM-% CREA apply bid 08/19 NYSTATIN-TRIAMCINOLONE 339472-3.1 UNIT/GM-% CREA 2202045 NYSTATIN- TRIAMCINOLONE Inactive AZITHROMYCIN 500 MG SOLR 1 po q day AZITHROMYCIN 500 MG SOLR 40433386208 AZITHROMYCIN Inactive VENTOLIN HFA 108 (90 BASE) MCG/ACT AERS 2 puffs four times a day PRN cough VENTOLIN HFA 108 (90 BASE) MCG/ACT AERS ALBUTEROL SULFATE Inactive LISINOPRIL 10 MG TABS 1/2-1 tab po every other day LISINOPRIL 10 MG TABS 397234 LISINOPRIL Inactive TUSSIONEX PENNKINETIC ER 10-8 MG/5ML LQCR 5ml po q12hr PRN Cough TUSSIONEX PENNKINETIC ER 10-8 MG/5ML LQCR HYDROCOD POLST- CHLORPHEN POLST Inactive PROMETHAZINE HCL 25 MG TABS 1 four times a day as needed for nausea/vomiting PROMETHAZINE HCL 25 MG TABS 182239 PROMETHAZINE HCL Inactive PREDNISONE 20 MG TAB 1 tablet twice daily for 2 days, then 1 tablet once daily for 2 days PREDNISONE 20 MG TAB 254494 PREDNISONE Inactive WARFARIN SODIUM 4 MG TABS 1 tab every evening WARFARIN SODIUM 4 MG TABS 933113 WARFARIN SODIUM Inactive LOMOTIL 2.5-0.025 MG TAB 1 to 2 four times a day as needed for diarrhea 10/13 LOMOTIL 2.5-0.025 MG TAB 0677055 DIPHENOXYLATE-ATROPINE Inactive IBUPROFEN 800 MG TABS 1 tab every 8 hours as needed IBUPROFEN 800 MG TABS 766415 IBUPROFEN Inactive PREDNISONE 20 MG TAB 2 tablets today, then 1 tablet days 2 through 4 PREDNISONE 20 MG TAB 395321 PREDNISONE Inactive AZITHROMYCIN 250 MG TABS 2 po qd x 1 day, then 1 po qd x 4 days AZITHROMYCIN 250 MG TABS 7268051 AZITHROMYCIN Inactive AZITHROMYCIN 250 MG TABS 2 po qd x 1 day, then 1 po qd x 4 days AZITHROMYCIN 250 MG TABS 9253031 AZITHROMYCIN Inactive NYSTATIN-TRIAMCINOLONE 075465-2.1 UNIT/GM-% CREA Apply to area BID NYSTATIN-TRIAMCINOLONE 718963-1.1 UNIT/GM-% CREA 9810072 NYSTATIN-TRIAMCINOLONE Inactive AZITHROMYCIN 250 MG TABS 2 po qd x 1 day, then 1 po qd x 4 days AZITHROMYCIN 250 MG TABS 8229681 AZITHROMYCIN Inactive AZITHROMYCIN 250 MG TABS 2 po qd x 1 day, then 1 po qd x 4 days AZITHROMYCIN 250 MG TABS 7340745 AZITHROMYCIN Inactive AZITHROMYCIN 250 MG TABS 2 po qd x 1 day, then 1 po qd x 4 days AZITHROMYCIN 250 MG TABS 9711757 AZITHROMYCIN Inactive Advance Directives Directive Description Start [...] Panel - Chemistry sodium, serum 141 mmol/L 802-045 6626/06/28 carbon dioxide, venous blood 31.0 mmol/L 21.0-32.0 [...] 1.0-3.5 Encounters Code Encounter Date Provider Facility CPT-85878 Level 4 Est. Patient 17:15:07 WIRE SETTER Piotr Daley [facility] CPT-65894 Level 3 Est. Patient 12:46:13 WIRE SETTER Piotr Daley [facility] CPT-33497 Level 3 Est. Patient 15:14:31 WIRE SETTER Piotr Daley DO [facility] CPT-17605 Level 3 Est. Patient 09:20:13 WIRE SETTER Piotr Daley [facility] CPT-26812 Level 3 Est. Patient 09:49:40 CDT Piotr Daley [facility] CPT-68296 Level 3 Est. Patient 16:28:11 CDT Piotr Daley [facility] CPT-19503 Level 3 Est. Patient 12:41:58 WIRE SETTER Piotr Daley [facility] CPT-39503 Level 3 Est. Patient 09:21:24 CDT Piotr Daley [facility] CPT-31160 Level 3 Est. Patient 09:21:11 CDT Piotr Daley [facility] CPT-89539 Level 3 Est. Patient 11:16:29 WIRE SETTER Piotr Daley [facility] CPT-59972 Level 3 Est. Patient 18:40:19 WIRE SETTER Piotr Daley [facility] CPT-02712 Level 3 Est. Patient 19:30:50 CDT Piotr Daley [facility] CPT-45918 Level 3 Est. Patient 22:06:44 CDT Katrina Rinaldi MD [facility] CPT-64680 Level 3 Est. Patient 14:20:00 CDT Piotr Daley [facility] CPT-18235 Level 3 Est. Patient 14:15:22 WIRE SETTER Piotr Wilson Edi [facility] CPT-33849 Level 3 Est. Patient 20:19:57 WIRE SETTER Piotr Wilson Edi [facility] CPT-41531 Level 3 Est. Patient 16:44:32 CDT Piotr Katie Daley [facility] CPT-68456 Level 3 Est. Patient 08:48:46 WIRE SETTER Piotr Daley [facility] CPT-98230 Level 3 Est. Patient 21:01:21 CDT Piotr Wilson Edi [facility] Procedures Code Procedure Name Date Entry Date Standard Description CPT-20226 PT/INR - LAB USE ONLY 08:12:25 WIRE SETTER CPT-40681 Venipuncture Draw Fee 08:12:24 WIRE SETTER CPT-15145 Venipuncture Draw Fee 11:31:07 WIRE SETTER CPT-77782 TPSA - LAB USE ONLY 11:31:07 WIRE SETTER CPT-98784 PT/INR - LAB USE ONLY 11:31:07 WIRE SETTER CPT-G0439 Subsequent Annual Wellness Exam 09:59:29 WIRE SETTER CPT-85793 Creatinine - LAB USE ONLY 14:37:55 WIRE SETTER CPT-97346 PT/INR - LAB USE ONLY 14:37:55 WIRE SETTER CPT-48992 Venipuncture Draw Fee 14:37:55 WIRE SETTER CPT-58447 LS spine comp w obliques - XRAY USE ONLY 12:59:25 WIRE SETTER CPT-35726 PT/INR - LAB USE ONLY 13:49:20 CDT CPT-39387 Venipuncture Draw Fee 13:49:19 CDT CPT-78366 PT/INR - LAB USE ONLY 15:48:49 CDT CPT-51091 Venipuncture Draw Fee 15:48:49 CDT CPT-23394 Venipuncture Draw Fee 11:31:59 CDT CPT-12584 PT/INR - LAB USE ONLY 11:31:59 CDT CPT-05091 Venipuncture Draw Fee 13:29:15 CDT CPT-20150 Thoracolumbar AP/Lat 15:19:19 WIRE SETTER CPT-G0438 Initial Annual Wellness Exam 12:18:54 WIRE SETTER CPT-17057 Knee 3V 09:57:38 CDT CPT-OV Office Visit 15:45:01 WIRE SETTER CPT-01337 Abd compl w upright 17:10:25 CDT
--- OUTSIDE RECORDS SUMMARY | 2018-07-18 11:06 | XMS REPORT | Clinical Summary ---
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 Piotr Daely DO Personal history of malignant neoplasm of [...] neoplasm of prostate V10.46 Active Alina Meyers LOOM SETTER Personal history of malignant neoplasm of prostate Coronary artery disease 414.00 Active Alina Luigi ARISTIDES Coronary atherosclerosis of unspecified type of vessel, buckland or graft Back pain, thoracic region, left 724.1 Inactive Piotr Daley DO Pain in thoracic spine Thoracic back pain 724.5 Active Piotr Wilson Edi DO Backache, unspecified Back pain lumbar 724.2 Active Piotr Daley DO Lumbago Peripheral neuropathy, lower extremity, left 356.9 Active 02/19 Piotr W Edi DO Unspecified hereditary and idiopathic peripheral neuropathy Insect bite 919.4 Active Nella Harris LOOM SETTER Insect bite, nonvenomous, of other, multiple, and unspecified sites, without mention of infection Pruritus 698.9 Active Nella Harris LOOM SETTER Unspecified pruritic disorder FLANK PAIN, RIGHT ICD-789.09 [...] mouth BID x10 days 10/01 DOXYCYCLINE HYCLATE 89844268412 No Longer Active Nella Steven LOOM SETTER Active WARFARIN SODIUM 5 MG TABS 1 tablet daily M-S, 1/2 tab on Heart WARFARIN SODIUM 64263114229 Active Nella Payette LOOM SETTER Active PROAIR HFA 108 (90 BASE) MCG/ACT AERS 1-2 puffs four times a day as needed ALBUTEROL SULFATE 45966400914 Active Matthew Rangel MD Active PREDNISONE 20 MG TAB 2 tabs daily for 3 days, 1 tab daily for 3 days, 1/2 tab daily for 2 days PREDNISONE 40091114936 No Longer Active Matthew Rangel MD Active TRAMADOL HCL 50 MG TABS 1 po tid with ES Tylenol TRAMADOL HCL 54928487378 No Longer Active Matthew Rangel MD Active GABAPENTIN 300 MG CAPS 1 po q hs for nerve pain GABAPENTIN 24000761911 No Longer Active Matthew Rangel MD Active PREDNISONE 20 MG TAB 2 tablets today, then 1 tablet days 2 through 4 PREDNISONE 55886437953 No Longer Active Piotr Daley DO Active AZITHROMYCIN 250 MG TABS 2 po qd x 1 day, then 1 po qd x 4 days AZITHROMYCIN 92969747270 No Longer Active Piotr Daley DO Active IBUPROFEN 800 MG TABS 1 tab every 8 hours as needed IBUPROFEN 19414619855 No Longer Active Piotr Daley DO Active LOMOTIL 2.5-0.025 MG TAB 1 to 2 four times a day as needed for diarrhea 10/13 DIPHENOXYLATE-ATROPINE 59912315402 No Longer Active Piotr Daley DO Active WARFARIN SODIUM 4 MG TABS 1 tab every evening WARFARIN SODIUM 25288285736 No Longer Active Piotr Daley DO Active PREDNISONE 20 MG TAB 1 tablet twice daily for 2 days, then 1 tablet once daily for 2 days PREDNISONE 73615770552 No Longer Active Piotr Daley DO Active PROMETHAZINE HCL 25 MG TABS 1 four times a day as needed for nausea/vomiting PROMETHAZINE HCL 99508120133 No Longer Active Piotr Daley DO Active TUSSIONEX PENNKINETIC ER 10-8 MG/5ML LQCR 5ml po q12hr PRN Cough HYDROCOD POLST-CHLORPHEN POLST 49291600278 No Longer Active Piotr Daley DO Active AZITHROMYCIN 250 MG TABS 2 po qd x 1 day, then 1 po qd x 4 days AZITHROMYCIN 22571823925 No Longer Active Piotr Daley DO Active AZITHROMYCIN 250 MG TABS 2 po qd x 1 day, then 1 po qd x 4 days AZITHROMYCIN 84223293559 No Longer Active Piotr Daley DO Active LISINOPRIL-HYDROCHLOROTHIAZIDE 10-12.5 MG TABS 1 tab by mouth daily LISINOPRIL-HYDROCHLOROTHIAZIDE 88102229092 Active Catalina Freitas Active LISINOPRIL 10 MG TABS 1/2-1 tab po every other day LISINOPRIL 01762628766 No Longer Active Piotr W Edi DO Active VENTOLIN HFA 108 (90 BASE) MCG/ACT AERS 2 puffs four times a day PRN cough ALBUTEROL SULFATE 15189758038 No Longer Active Piotr Daley DO Active NYSTATIN-TRIAMCINOLONE 856989-1.1 UNIT/GM-% CREA Apply to area BID NYSTATIN-TRIAMCINOLONE 55530647190 No Longer Active Alena Oswaldum SENIOR ELECTRICAL ENGINEER Active PHISOHEX 3 % LIQD Use Directed HEXACHLOROPHENE 64904604253 No Longer Active Sandra [place] Active AZITHROMYCIN 250 MG TABS 2 po qd x 1 day, then 1 po qd x 4 days AZITHROMYCIN 58561091996 No Longer Active Katrina Rinaldi MD PhD Active AZITHROMYCIN 250 MG TABS 2 po qd x 1 day, then 1 po qd x 4 days AZITHROMYCIN 25862971433 No Longer Active Piotr Daley DO Active AZITHROMYCIN 500 MG SOLR 1 po q day AZITHROMYCIN 28153414890 No Longer Active Piotr Daley DO Active NYSTATIN-TRIAMCINOLONE 472521-1.1 UNIT/GM-% CREA apply bid 08/19 NYSTATIN-TRIAMCINOLONE 75702938030 No Longer Active Piotr Daley DO Active IBUPROFEN 800 MG TABS 1 po q 8 hours prn pain sparinly IBUPROFEN 59158328361 No Longer Active Piotr Daley DO Active VITAMIN D3 5000 UNIT CAPS 1 po daily CHOLECALCIFEROL 43095548609 Active Piotr Daley DO Active IBUPROFEN 800 MG TABS 1 po q 8 hours prn pain sparinly IBUPROFEN 800 MG TABS 272526 IBUPROFEN Inactive NYSTATIN-TRIAMCINOLONE 766513-7.1 UNIT/GM-% CREA apply bid 08/19 NYSTATIN-TRIAMCINOLONE 500462-4.1 UNIT/GM-% CREA 6903638 NYSTATIN- TRIAMCINOLONE Inactive AZITHROMYCIN 500 MG SOLR 1 po q day AZITHROMYCIN 500 MG SOLR 60389154412 AZITHROMYCIN Inactive VENTOLIN HFA 108 (90 BASE) MCG/ACT AERS 2 puffs four times a day PRN cough VENTOLIN HFA 108 (90 BASE) MCG/ACT AERS ALBUTEROL SULFATE Inactive LISINOPRIL 10 MG TABS 1/2-1 tab po every other day LISINOPRIL 10 MG TABS 434938 LISINOPRIL Inactive TUSSIONEX PENNKINETIC ER 10-8 MG/5ML LQCR 5ml po q12hr PRN Cough TUSSIONEX PENNKINETIC ER 10-8 MG/5ML LQCR HYDROCOD POLST- CHLORPHEN POLST Inactive PROMETHAZINE HCL 25 MG TABS 1 four times a day as needed for nausea/vomiting PROMETHAZINE HCL 25 MG TABS 531882 PROMETHAZINE HCL Inactive PREDNISONE 20 MG TAB 1 tablet twice daily for 2 days, then 1 tablet once daily for 2 days PREDNISONE 20 MG TAB 256187 PREDNISONE Inactive WARFARIN SODIUM 4 MG TABS 1 tab every evening WARFARIN SODIUM 4 MG TABS 111357 WARFARIN SODIUM Inactive LOMOTIL 2.5-0.025 MG TAB 1 to 2 four times a day as needed for diarrhea 10/13 LOMOTIL 2.5-0.025 MG TAB 8545367 DIPHENOXYLATE-ATROPINE Inactive IBUPROFEN 800 MG TABS 1 tab every 8 hours as needed IBUPROFEN 800 MG TABS 533478 IBUPROFEN Inactive PREDNISONE 20 MG TAB 2 tablets today, then 1 tablet days 2 through 4 PREDNISONE 20 MG TAB 980300 PREDNISONE Inactive GABAPENTIN 300 MG CAPS 1 po q hs for nerve pain GABAPENTIN 300 MG CAPS 570379 GABAPENTIN Inactive TRAMADOL HCL 50 MG TABS 1 po tid with ES Tylenol TRAMADOL HCL 50 MG TABS 015354 TRAMADOL HCL Inactive AZITHROMYCIN 250 MG TABS 2 po qd x 1 day, then 1 po qd x 4 days AZITHROMYCIN 250 MG TABS 2869465 AZITHROMYCIN Inactive AZITHROMYCIN 250 MG TABS 2 po qd x 1 day, then 1 po qd x 4 days AZITHROMYCIN 250 MG TABS 8302314 AZITHROMYCIN Inactive NYSTATIN-TRIAMCINOLONE 456567-7.1 UNIT/GM-% CREA Apply to area BID NYSTATIN-TRIAMCINOLONE 211289-4.1 UNIT/GM-% CREA 7631113 NYSTATIN-TRIAMCINOLONE Inactive AZITHROMYCIN 250 MG TABS 2 po qd x 1 day, then 1 po qd x 4 days AZITHROMYCIN 250 MG TABS 0940087 AZITHROMYCIN Inactive AZITHROMYCIN 250 MG TABS 2 po qd x 1 day, then 1 po qd x 4 days AZITHROMYCIN 250 MG TABS 9297159 AZITHROMYCIN Inactive AZITHROMYCIN 250 MG TABS 2 po qd x 1 day, then 1 po qd x 4 days AZITHROMYCIN 250 MG TABS 3510973 AZITHROMYCIN Inactive PREDNISONE 20 MG TAB 2 tabs daily for 3 days, 1 tab daily for 3 days, 1/2 tab daily for 2 days PREDNISONE 20 MG TAB 071511 PREDNISONE Inactive DOXYCYCLINE HYCLATE 100 MG CAP 1 cap by mouth BID x10 days 10/01 DOXYCYCLINE HYCLATE 100 MG CAP 9411258 DOXYCYCLINE HYCLATE Inactive Advance Directives Directive Description [...] Panel - Chemistry sodium, serum 141 mmol/L 437-961 0317/01/24 potassium, serum 4.3 mmol/L 3.5-5.2 chloride, serum [...] % 11.0-15.0 platelet count 172 THOUSAND/UL 10*3/mm3 668-232 3979/04/12 mean platelet volume 8.6 fL 7.5-12.5 Lab [...] 18.9-24.9 Encounters Code Encounter Date Provider Facility CPT-24894 Level 3 Est. Patient 17:10:19 CDT Nella Harris ARISTIDES [facility] CPT-14348 Level 3 Est. Patient 10:48:17 UNDERWRITER MORTGAGE LOAN Matthew Rangel MD [facility] CPT-90669 Level 4 Est. Patient 17:15:07 UNDERWRITER MORTGAGE LOAN Piotr Katie Daley [facility] CPT-07892 Level 3 Est. Patient 12:46:13 UNDERWRITER MORTGAGE LOAN Piotr Wilson Edi [facility] CPT-08556 Level 3 Est. Patient 15:14:31 UNDERWRITER MORTGAGE LOAN Piotr Daley [facility] CPT-66042 Level 3 Est. Patient 09:20:13 UNDERWRITER MORTGAGE LOAN Piotr Katie Daley [facility] CPT-76094 Level 3 Est. Patient 09:49:40 CDT Piotr Wilson [facility] CPT-84423 Level 3 Est. Patient 16:28:11 CDT Piotr Katie [facility] CPT-79602 Level 3 Est. Patient 12:41:58 UNDERWRITER MORTGAGE LOAN Piotr Wilson Edi [facility] CPT-19648 Level 3 Est. Patient 09:21:24 CDT Piotr Daley [facility] CPT-15285 Level 3 Est. Patient 09:21:11 CDT Piotr Katie [facility] CPT-61670 Level 3 Est. Patient 11:16:29 UNDERWRITER MORTGAGE LOAN Piotr Daley [facility] CPT-43292 Level 3 Est. Patient 18:40:19 UNDERWRITER MORTGAGE LOAN Piotr Daley [facility] CPT-98768 Level 3 Est. Patient 19:30:50 CDT Piotr Wilson [facility] CPT-66927 Level 3 Est. Patient 22:06:44 CDT Katrina Rinaldi MD PhD [facility] CPT-51816 Level 3 Est. Patient 14:20:00 CDT Piotr Daley [facility] CPT-43620 Level 3 Est. Patient 14:15:22 UNDERWRITER MORTGAGE LOAN Piotr Daley [facility] CPT-72356 Level 3 Est. Patient 20:19:57 UNDERWRITER MORTGAGE LOAN Piotr Daley [facility] CPT-76378 Level 3 Est. Patient 16:44:32 CDT Piotr Daley [facility] CPT-57502 Level 3 Est. Patient 08:48:46 UNDERWRITER MORTGAGE LOAN Piotr Daley [facility] CPT-72018 Level 3 Est. Patient 21:01:21 CDT Piotr Daley [facility] Procedures Code Procedure Name Date Entry Date Standard Description CPT-55345 BMP - LAB USE ONLY 17:19:11 UNDERWRITER MORTGAGE LOAN CPT-39063 PT/INR - LAB USE ONLY 17:19:10 UNDERWRITER MORTGAGE LOAN CPT-10977 Venipuncture Draw Fee 17:19:10 UNDERWRITER MORTGAGE LOAN CPT-11053 PT/INR - LAB USE ONLY 08:12:25 UNDERWRITER MORTGAGE LOAN CPT-06274 Venipuncture Draw Fee 08:12:24 UNDERWRITER MORTGAGE LOAN CPT-18831 Venipuncture Draw Fee 11:31:07 UNDERWRITER MORTGAGE LOAN CPT-69369 TPSA - LAB USE ONLY 11:31:07 UNDERWRITER MORTGAGE LOAN CPT-74707 PT/INR - LAB USE ONLY 11:31:07 UNDERWRITER MORTGAGE LOAN CPT-G0439 [facility] Annual Wellness Exam 09:59:29 UNDERWRITER MORTGAGE LOAN CPT-41142 Creatinine - LAB USE ONLY 14:37:55 UNDERWRITER MORTGAGE LOAN CPT-84843 PT/INR - LAB USE ONLY 14:37:55 UNDERWRITER MORTGAGE LOAN CPT-30224 Venipuncture Draw Fee 14:37:55 UNDERWRITER MORTGAGE LOAN CPT-80611 LS spine comp w obliques - XRAY USE ONLY 12:59:25 UNDERWRITER MORTGAGE LOAN CPT-14836 PT/INR - LAB USE ONLY 13:49:20 CDT CPT-86034 Venipuncture Draw Fee 13:49:19 CDT CPT-25553 PT/INR - LAB USE ONLY 15:48:49 CDT CPT-54985 Venipuncture Draw Fee 15:48:49 CDT CPT-08637 Venipuncture Draw Fee 11:31:59 CDT CPT-13577 PT/INR - LAB USE ONLY 11:31:59 CDT CPT-03519 Venipuncture Draw Fee 13:29:15 CDT CPT-56682 Thoracolumbar AP/Lat 15:19:19 UNDERWRITER MORTGAGE LOAN CPT-G0438 Initial Annual Wellness Exam 12:18:54 UNDERWRITER MORTGAGE LOAN CPT-01044 Knee 3V 09:57:38 CDT CPT-OV Office Visit 15:45:01 UNDERWRITER MORTGAGE LOAN CPT-88680 Abd compl w upright 17:10:25 CDT
--- OUTSIDE RECORDS SUMMARY | 2018-07-18 11:06 | XMS REPORT | Clinical Summary ---
Author Author Admin, [employer] Organization [employer] Address Unknown Phone Unavailable Allergies, Adverse Reactions, [...] neoplasm of prostate V10.46 Active Alina Meyers VERIFICATION CLERK Personal history of malignant neoplasm of prostate Coronary artery disease 414.00 Active Alina Meyers APRN Coronary atherosclerosis of unspecified type of vessel, [place] or graft Back pain, thoracic region, left [...] po q hs for nerve pain GABAPENTIN 35281402230 Active Piotr Daley DO Active WARFARIN SODIUM 5 MG TABS 1 tablet daily WARFARIN SODIUM 98451353306 Active Simi Meyers Active TRAMADOL HCL 50 MG TABS 1 po tid with ES Tylenol TRAMADOL HCL 57346670107 Active Piotr Daley DO Active PREDNISONE 20 MG TAB 2 tablets today, then 1 tablet days 2 through 4 PREDNISONE 37362767678 No Longer Active Piotr Daley DO Active AZITHROMYCIN 250 MG TABS 2 po qd x 1 day, then 1 po qd x 4 days AZITHROMYCIN 01658035633 No Longer Active Piotr Daley DO Active IBUPROFEN 800 MG TABS 1 tab every 8 hours as needed IBUPROFEN 68505645878 No Longer Active Piotr Daley DO Active LOMOTIL 2.5-0.025 MG TAB 1 to 2 four times a day as needed for diarrhea 10/13 DIPHENOXYLATE-ATROPINE 92379358895 No Longer Active Piotr Daley DO Active WARFARIN SODIUM 4 MG TABS 1 tab every evening WARFARIN SODIUM 10367172903 No Longer Active Piotr Daley DO Active PREDNISONE 20 MG TAB 1 tablet twice daily for 2 days, then 1 tablet once daily for 2 days PREDNISONE 10741952769 No Longer Active Piotr Daley DO Active PROMETHAZINE HCL 25 MG TABS 1 four times a day as needed for nausea/vomiting PROMETHAZINE HCL 65616490046 No Longer Active Piotr Daley DO Active TUSSIONEX PENNKINETIC ER 10-8 MG/5ML LQCR 5ml po q12hr PRN Cough HYDROCOD POLST-CHLORPHEN POLST 15638165123 No Longer Active Piotr Daley DO Active AZITHROMYCIN 250 MG TABS 2 po qd x 1 day, then 1 po qd x 4 days AZITHROMYCIN 18443679368 No Longer Active Piotr Daley DO Active AZITHROMYCIN 250 MG TABS 2 po qd x 1 day, then 1 po qd x 4 days AZITHROMYCIN 41771422630 No Longer Active Piotr Daley DO Active LISINOPRIL-HYDROCHLOROTHIAZIDE 10-12.5 MG TABS 1 tab by mouth daily LISINOPRIL-HYDROCHLOROTHIAZIDE 88134630746 Active Hilary Ma MA Active LISINOPRIL 10 MG TABS 1/2-1 tab po every other day LISINOPRIL 06141892071 No Longer Active Piotr Daley DO Active VENTOLIN HFA 108 (90 BASE) MCG/ACT AERS 2 puffs four times a day PRN cough ALBUTEROL SULFATE 85398156996 No Longer Active Piotr Daley DO Active NYSTATIN-TRIAMCINOLONE 689024-1.1 UNIT/GM-% CREA Apply to area BID NYSTATIN-TRIAMCINOLONE 57004469626 No Longer Active Alena Chavira PIT BOSS Active PHISOHEX 3 % LIQD Use Directed HEXACHLOROPHENE 65746134845 No Longer Active Sandra Thornton Active AZITHROMYCIN 250 MG TABS 2 po qd x 1 day, then 1 po qd x 4 days AZITHROMYCIN 29730233367 No Longer Active Katrina Rinaldi MD PhD Active AZITHROMYCIN 250 MG TABS 2 po qd x 1 day, then 1 po qd x 4 days AZITHROMYCIN 59119248632 No Longer Active Piotr Daley DO Active AZITHROMYCIN 500 MG SOLR 1 po q day AZITHROMYCIN 42535093367 No Longer Active Piotr Daley DO Active NYSTATIN-TRIAMCINOLONE 233843-9.1 UNIT/GM-% CREA apply bid 08/19 NYSTATIN-TRIAMCINOLONE 63939966720 No Longer Active Piotr Daley DO Active IBUPROFEN 800 MG TABS 1 po q 8 hours prn pain sparinly IBUPROFEN 00253294907 No Longer Active Piotr Daley DO Active VITAMIN D3 5000 UNIT CAPS 1 po daily CHOLECALCIFEROL 30424637530 Active Piotr Daley DO Active IBUPROFEN 800 MG TABS 1 po q 8 hours prn pain sparinly IBUPROFEN 800 MG TABS 231583 IBUPROFEN Inactive NYSTATIN-TRIAMCINOLONE 006574-4.1 UNIT/GM-% CREA apply bid 08/19 NYSTATIN-TRIAMCINOLONE 953838-1.1 UNIT/GM-% CREA 2909924 NYSTATIN- TRIAMCINOLONE Inactive AZITHROMYCIN 500 MG SOLR 1 po q day AZITHROMYCIN 500 MG SOLR 51731123629 AZITHROMYCIN Inactive VENTOLIN HFA 108 (90 BASE) MCG/ACT AERS 2 puffs four times a day PRN cough VENTOLIN HFA 108 (90 BASE) MCG/ACT AERS ALBUTEROL SULFATE Inactive LISINOPRIL 10 MG TABS 1/2-1 tab po every other day LISINOPRIL 10 MG TABS 482183 LISINOPRIL Inactive TUSSIONEX PENNKINETIC ER 10-8 MG/5ML LQCR 5ml po q12hr PRN Cough TUSSIONEX PENNKINETIC ER 10-8 MG/5ML LQCR HYDROCOD POLST- CHLORPHEN POLST Inactive PROMETHAZINE HCL 25 MG TABS 1 four times a day as needed for nausea/vomiting PROMETHAZINE HCL 25 MG TABS 335620 PROMETHAZINE HCL Inactive PREDNISONE 20 MG TAB 1 tablet twice daily for 2 days, then 1 tablet once daily for 2 days PREDNISONE 20 MG TAB 087224 PREDNISONE Inactive WARFARIN SODIUM 4 MG TABS 1 tab every evening WARFARIN SODIUM 4 MG TABS 928340 WARFARIN SODIUM Inactive LOMOTIL 2.5-0.025 MG TAB 1 to 2 four times a day as needed for diarrhea 10/13 LOMOTIL 2.5-0.025 MG TAB 2132365 DIPHENOXYLATE-ATROPINE Inactive IBUPROFEN 800 MG TABS 1 tab every 8 hours as needed IBUPROFEN 800 MG TABS 655376 IBUPROFEN Inactive PREDNISONE 20 MG TAB 2 tablets today, then 1 tablet days 2 through 4 PREDNISONE 20 MG TAB 228646 PREDNISONE Inactive AZITHROMYCIN 250 MG TABS 2 po qd x 1 day, then 1 po qd x 4 days AZITHROMYCIN 250 MG TABS 0515956 AZITHROMYCIN Inactive AZITHROMYCIN 250 MG TABS 2 po qd x 1 day, then 1 po qd x 4 days AZITHROMYCIN 250 MG TABS 9641235 AZITHROMYCIN Inactive NYSTATIN-TRIAMCINOLONE 151473-3.1 UNIT/GM-% CREA Apply to area BID NYSTATIN-TRIAMCINOLONE 245480-6.1 UNIT/GM-% CREA 6597785 NYSTATIN-TRIAMCINOLONE Inactive AZITHROMYCIN 250 MG TABS 2 po qd x 1 day, then 1 po qd x 4 days AZITHROMYCIN 250 MG TABS 6786644 AZITHROMYCIN Inactive AZITHROMYCIN 250 MG TABS 2 po qd x 1 day, then 1 po qd x 4 days AZITHROMYCIN 250 MG TABS 5410070 AZITHROMYCIN Inactive AZITHROMYCIN 250 MG TABS 2 po qd x 1 day, then 1 po qd x 4 days AZITHROMYCIN 250 MG TABS 0600556 AZITHROMYCIN Inactive Advance Directives Directive Description Start [...] Panel - Chemistry sodium, serum 141 mmol/L 270-394 4341/06/28 carbon dioxide, venous blood 31.0 mmol/L 21.0-32.0 [...] Negative Encounters Code Encounter Date Provider Facility CPT-24102 Level 4 Est. Patient 17:15:07 TECHNICAL REPORT WRITER Piotr Daley DO [facility] CPT-09533 Level 3 Est. Patient 12:46:13 TECHNICAL REPORT WRITER Piotr Daley [facility] CPT-67285 Level 3 Est. Patient 15:14:31 TECHNICAL REPORT WRITER Piotr Daley [facility] CPT-74290 Level 3 Est. Patient 09:20:13 TECHNICAL REPORT WRITER Piotr Daley [facility] CPT-12728 Level 3 Est. Patient 09:49:40 CDT Piotr Daley [facility] CPT-84404 Level 3 Est. Patient 16:28:11 CDT Piotr Daley [facility] CPT-69234 Level 3 Est. Patient 12:41:58 TECHNICAL REPORT WRITER Piotr Daley [facility] CPT-86249 Level 3 Est. Patient 09:21:24 CDT Piotr Daley [facility] CPT-17433 Level 3 Est. Patient 09:21:11 CDT Piotr Daley [facility] CPT-50101 Level 3 Est. Patient 11:16:29 TECHNICAL REPORT WRITER Piotr Daley [facility] CPT-81091 Level 3 Est. Patient 18:40:19 TECHNICAL REPORT WRITER Piotr Daley [facility] CPT-31987 Level 3 Est. Patient 19:30:50 CDT Piotr Daley [facility] CPT-26275 Level 3 Est. Patient 22:06:44 CDT Katrina Rinaldi MD [facility] CPT-47653 Level 3 Est. Patient 14:20:00 CDT Piotr Daley [facility] CPT-70364 Level 3 Est. Patient 14:15:22 TECHNICAL REPORT WRITER Piotr Daley [facility] CPT-52043 Level 3 Est. Patient 20:19:57 TECHNICAL REPORT WRITER Piotr Daley [facility] CPT-12280 Level 3 Est. Patient 16:44:32 CDT Piotr Daley [facility] CPT-30751 Level 3 Est. Patient 08:48:46 TECHNICAL REPORT WRITER Piotr Daley [facility] CPT-99662 Level 3 Est. Patient 21:01:21 CDT Piotr Daley DO [facility] Procedures Code Procedure Name Date Entry Date Standard Description CPT-41897 Venipuncture Draw Fee 11:31:07 TECHNICAL REPORT WRITER CPT-92772 TPSA - LAB USE ONLY 11:31:07 TECHNICAL REPORT WRITER CPT-03335 PT/INR - LAB USE ONLY 11:31:07 TECHNICAL REPORT WRITER CPT-G0439 Subsequent Annual Wellness Exam 09:59:29 TECHNICAL REPORT WRITER CPT-67761 Creatinine - LAB USE ONLY 14:37:55 TECHNICAL REPORT WRITER CPT-73644 PT/INR - LAB USE ONLY 14:37:55 TECHNICAL REPORT WRITER CPT-39282 Venipuncture Draw Fee 14:37:55 TECHNICAL REPORT WRITER CPT-32355 LS spine comp w obliques - XRAY USE ONLY 12:59:25 TECHNICAL REPORT WRITER CPT-80313 PT/INR - LAB USE ONLY 13:49:20 CDT CPT-65044 Venipuncture Draw Fee 13:49:19 CDT CPT-94332 PT/INR - LAB USE ONLY 15:48:49 CDT CPT-58881 Venipuncture Draw Fee 15:48:49 CDT CPT-07080 Venipuncture Draw Fee 11:31:59 CDT CPT-22420 PT/INR - LAB USE ONLY 11:31:59 CDT CPT-51182 Venipuncture Draw Fee 13:29:15 CDT CPT-28742 Thoracolumbar AP/Lat 15:19:19 TECHNICAL REPORT WRITER CPT-G0438 Initial Annual Wellness Exam 12:18:54 TECHNICAL REPORT WRITER CPT-55875 Knee 3V 09:57:38 CDT CPT-OV Office Visit 15:45:01 TECHNICAL REPORT WRITER CPT-11701 Abd compl w upright 17:10:25 CDT
--- OUTSIDE RECORDS SUMMARY | 2018-07-18 11:07 | XMS REPORT | Clinical Summary ---
Author Author Admin, [employer] Organization [employer] Address Unknown Phone Unavailable Allergies, Adverse Reactions, [...] neoplasm of prostate V10.46 Active Alina Meyers KILN DOOR REPAIRER Personal history of malignant neoplasm of prostate Coronary artery disease 414.00 Active Alina Meyers KILN DOOR REPAIRER Coronary atherosclerosis of unspecified type of vessel, [...] neuropathy Insect bite 919.4 Active Nella Harris KILN DOOR REPAIRER Insect bite, nonvenomous, of other, multiple, and unspecified sites, without mention of infection Pruritus 698.9 Active Nella Harris KILN DOOR REPAIRER Unspecified pruritic disorder FLANK PAIN, RIGHT [...] mouth BID x10 days 10/01 DOXYCYCLINE HYCLATE 72746344399 No Longer Active Nella Steven KILN DOOR REPAIRER Active WARFARIN SODIUM 5 MG TABS 1 tablet daily M-S, 1/2 tab on Heart WARFARIN SODIUM 30921324742 Active Nella [place] KILN DOOR REPAIRER Active PROAIR HFA 108 (90 BASE) MCG/ACT AERS 1-2 puffs four times a day as needed ALBUTEROL SULFATE 30986964149 Active Matthew Rangel MD Active PREDNISONE 20 MG TAB 2 tabs daily for 3 days, 1 tab daily for 3 days, 1/2 tab daily for 2 days PREDNISONE 19995135339 No Longer Active Matthew Rangel MD Active TRAMADOL HCL 50 MG TABS 1 po tid with ES Tylenol TRAMADOL HCL 67504128716 No Longer Active Matthew Rangel MD Active GABAPENTIN 300 MG CAPS 1 po q hs for nerve pain GABAPENTIN 28220794438 No Longer Active Matthew Rangel MD Active PREDNISONE 20 MG TAB 2 tablets today, then 1 tablet days 2 through 4 PREDNISONE 51569703777 No Longer Active Piotr Daley DO Active AZITHROMYCIN 250 MG TABS 2 po qd x 1 day, then 1 po qd x 4 days AZITHROMYCIN 37990140730 No Longer Active Piotr Daley DO Active IBUPROFEN 800 MG TABS 1 tab every 8 hours as needed IBUPROFEN 11241674843 No Longer Active Piotr Daley DO Active LOMOTIL 2.5-0.025 MG TAB 1 to 2 four times a day as needed for diarrhea 10/13 DIPHENOXYLATE-ATROPINE 63930917892 No Longer Active Piotr Daley DO Active WARFARIN SODIUM 4 MG TABS 1 tab every evening WARFARIN SODIUM 61667510678 No Longer Active Piotr Daley DO Active PREDNISONE 20 MG TAB 1 tablet twice daily for 2 days, then 1 tablet once daily for 2 days PREDNISONE 82898032252 No Longer Active Piotr Daley DO Active PROMETHAZINE HCL 25 MG TABS 1 four times a day as needed for nausea/vomiting PROMETHAZINE HCL 93903448001 No Longer Active Piotr Daley DO Active TUSSIONEX PENNKINETIC ER 10-8 MG/5ML LQCR 5ml po q12hr PRN Cough HYDROCOD POLST-CHLORPHEN POLST 11788235488 No Longer Active Piotr Daley DO Active AZITHROMYCIN 250 MG TABS 2 po qd x 1 day, then 1 po qd x 4 days AZITHROMYCIN 00247830942 No Longer Active Piotr Daley DO Active AZITHROMYCIN 250 MG TABS 2 po qd x 1 day, then 1 po qd x 4 days AZITHROMYCIN 73165846709 No Longer Active Piotr Daley DO Active LISINOPRIL-HYDROCHLOROTHIAZIDE 10-12.5 MG TABS 1 tab by mouth daily LISINOPRIL-HYDROCHLOROTHIAZIDE 86747410962 Active Catalina Freitas Active LISINOPRIL 10 MG TABS 1/2-1 tab po every other day LISINOPRIL 07085256256 No Longer Active Piotr W Edi DO Active VENTOLIN HFA 108 (90 BASE) MCG/ACT AERS 2 puffs four times a day PRN cough ALBUTEROL SULFATE 87859163237 No Longer Active Piotr Daley DO Active NYSTATIN-TRIAMCINOLONE 469606-4.1 UNIT/GM-% CREA Apply to area BID NYSTATIN-TRIAMCINOLONE 17609227136 No Longer Active Alena Oswaldum CHEESE GRADER Active PHISOHEX 3 % LIQD Use Directed HEXACHLOROPHENE 02264154049 No Longer Active Sandra [place] Active AZITHROMYCIN 250 MG TABS 2 po qd x 1 day, then 1 po qd x 4 days AZITHROMYCIN 50306704371 No Longer Active Katrina Rinaldi MD PhD Active AZITHROMYCIN 250 MG TABS 2 po qd x 1 day, then 1 po qd x 4 days AZITHROMYCIN 59835331384 No Longer Active Piotr Daley DO Active AZITHROMYCIN 500 MG SOLR 1 po q day AZITHROMYCIN 75584888037 No Longer Active Piotr Daley DO Active NYSTATIN-TRIAMCINOLONE 413753-2.1 UNIT/GM-% CREA apply bid 08/19 NYSTATIN-TRIAMCINOLONE 10924425438 No Longer Active Piotr Daley DO Active IBUPROFEN 800 MG TABS 1 po q 8 hours prn pain sparinly IBUPROFEN 04440142845 No Longer Active Piotr Daley DO Active VITAMIN D3 5000 UNIT CAPS 1 po daily CHOLECALCIFEROL 46994026738 Active Piotr Daley DO Active IBUPROFEN 800 MG TABS 1 po q 8 hours prn pain sparinly IBUPROFEN 800 MG TABS 122032 IBUPROFEN Inactive NYSTATIN-TRIAMCINOLONE 709096-1.1 UNIT/GM-% CREA apply bid 08/19 NYSTATIN-TRIAMCINOLONE 924270-3.1 UNIT/GM-% CREA 4432215 NYSTATIN- TRIAMCINOLONE Inactive AZITHROMYCIN 500 MG SOLR 1 po q day AZITHROMYCIN 500 MG SOLR 38562563638 AZITHROMYCIN Inactive VENTOLIN HFA 108 (90 BASE) MCG/ACT AERS 2 puffs four times a day PRN cough VENTOLIN HFA 108 (90 BASE) MCG/ACT AERS ALBUTEROL SULFATE Inactive LISINOPRIL 10 MG TABS 1/2-1 tab po every other day LISINOPRIL 10 MG TABS 716162 LISINOPRIL Inactive TUSSIONEX PENNKINETIC ER 10-8 MG/5ML LQCR 5ml po q12hr PRN Cough TUSSIONEX PENNKINETIC ER 10-8 MG/5ML LQCR HYDROCOD POLST- CHLORPHEN POLST Inactive PROMETHAZINE HCL 25 MG TABS 1 four times a day as needed for nausea/vomiting PROMETHAZINE HCL 25 MG TABS 059405 PROMETHAZINE HCL Inactive PREDNISONE 20 MG TAB 1 tablet twice daily for 2 days, then 1 tablet once daily for 2 days PREDNISONE 20 MG TAB 052174 PREDNISONE Inactive WARFARIN SODIUM 4 MG TABS 1 tab every evening WARFARIN SODIUM 4 MG TABS 770029 WARFARIN SODIUM Inactive LOMOTIL 2.5-0.025 MG TAB 1 to 2 four times a day as needed for diarrhea 10/13 LOMOTIL 2.5-0.025 MG TAB 2265771 DIPHENOXYLATE-ATROPINE Inactive IBUPROFEN 800 MG TABS 1 tab every 8 hours as needed IBUPROFEN 800 MG TABS 983324 IBUPROFEN Inactive PREDNISONE 20 MG TAB 2 tablets today, then 1 tablet days 2 through 4 PREDNISONE 20 MG TAB 921563 PREDNISONE Inactive GABAPENTIN 300 MG CAPS 1 po q hs for nerve pain GABAPENTIN 300 MG CAPS 987472 GABAPENTIN Inactive TRAMADOL HCL 50 MG TABS 1 po tid with ES Tylenol TRAMADOL HCL 50 MG TABS 558884 TRAMADOL HCL Inactive AZITHROMYCIN 250 MG TABS 2 po qd x 1 day, then 1 po qd x 4 days AZITHROMYCIN 250 MG TABS 3405327 AZITHROMYCIN Inactive AZITHROMYCIN 250 MG TABS 2 po qd x 1 day, then 1 po qd x 4 days AZITHROMYCIN 250 MG TABS 3616825 AZITHROMYCIN Inactive NYSTATIN-TRIAMCINOLONE 134933-6.1 UNIT/GM-% CREA Apply to area BID NYSTATIN-TRIAMCINOLONE 110957-5.1 UNIT/GM-% CREA 4479317 NYSTATIN-TRIAMCINOLONE Inactive AZITHROMYCIN 250 MG TABS 2 po qd x 1 day, then 1 po qd x 4 days AZITHROMYCIN 250 MG TABS 1197656 AZITHROMYCIN Inactive AZITHROMYCIN 250 MG TABS 2 po qd x 1 day, then 1 po qd x 4 days AZITHROMYCIN 250 MG TABS 6392756 AZITHROMYCIN Inactive AZITHROMYCIN 250 MG TABS 2 po qd x 1 day, then 1 po qd x 4 days AZITHROMYCIN 250 MG TABS 9556448 AZITHROMYCIN Inactive PREDNISONE 20 MG TAB 2 tabs daily for 3 days, 1 tab daily for 3 days, 1/2 tab daily for 2 days PREDNISONE 20 MG TAB 706050 PREDNISONE Inactive DOXYCYCLINE HYCLATE 100 MG CAP 1 cap by mouth BID x10 days 10/01 DOXYCYCLINE HYCLATE 100 MG CAP 9900191 DOXYCYCLINE HYCLATE Inactive Advance Directives Directive Description [...] Panel - Chemistry sodium, serum 141 mmol/L 853-463 7650/01/24 potassium, serum 4.3 mmol/L 3.5-5.2 chloride, serum [...] % 11.0-15.0 platelet count 172 THOUSAND/UL 10*3/mm3 626-110 5016/04/12 mean platelet volume 8.6 fL 7.5-12.5 Lab [...] prothrombin time (patient) 22.8 SECS s 11.1-13.4 Lab Report: Prothrombin Time Hemochron - Coagulation prothrombin time (patient) 33.0 SECS s 18.9-24.9 Encounters Code Encounter Date Provider Facility CPT-66888 Level 3 Est. Patient 17:10:19 CDT Nella Steven [place] [facility] CPT-36522 Level 3 Est. Patient 10:48:17 WOOD GETTER Matthew Rangel MD [facility] CPT-19260 Level 4 Est. Patient 17:15:07 WOOD GETTER Piotr Daley [facility] CPT-20417 Level 3 Est. Patient 12:46:13 WOOD GETTER Piotr Daley [facility] CPT-37963 Level 3 Est. Patient 15:14:31 WOOD GETTER Piotr Daley [facility] CPT-43704 Level 3 Est. Patient 09:20:13 WOOD GETTER Piotr Daley [facility] CPT-09652 Level 3 Est. Patient 09:49:40 CDT Piotr Daley [facility] CPT-54972 Level 3 Est. Patient 16:28:11 CDT Piotr Daley [facility] CPT-35800 Level 3 Est. Patient 12:41:58 WOOD GETTER Piotr Daley [facility] CPT-21987 Level 3 Est. Patient 09:21:24 CDT Piotr Daley [facility] CPT-61120 Level 3 Est. Patient 09:21:11 CDT Piotr Daley [facility] CPT-81330 Level 3 Est. Patient 11:16:29 WOOD GETTER Piotr Daley [facility] CPT-85296 Level 3 Est. Patient 18:40:19 WOOD GETTER Piotr Daley [facility] CPT-71780 Level 3 Est. Patient 19:30:50 CDT Piotr Wilson [facility] CPT-54546 Level 3 Est. Patient 22:06:44 CDT Katrina Rinaldi MD PhD [facility] CPT-72001 Level 3 Est. Patient 14:20:00 CDT Piotr Daley [facility] CPT-22022 Level 3 Est. Patient 14:15:22 WOOD GETTER Poitr Daley [facility] CPT-94236 Level 3 Est. Patient 20:19:57 WOOD GETTER Piotr Daley [facility] CPT-20069 Level 3 Est. Patient 16:44:32 CDT Piotr Daley [facility] CPT-75464 Level 3 Est. Patient 08:48:46 WOOD GETTER Piotr Daley [facility] CPT-79225 Level 3 Est. Patient 21:01:21 CDT Piotr Daley [facility] Procedures Code Procedure Name Date Entry Date Standard Description CPT-50089 BMP - LAB USE ONLY 17:19:11 WOOD GETTER CPT-59897 PT/INR - LAB USE ONLY 17:19:10 WOOD GETTER CPT-82026 Venipuncture Draw Fee 17:19:10 WOOD GETTER CPT-69834 PT/INR - LAB USE ONLY 08:12:25 WOOD GETTER CPT-99340 Venipuncture Draw Fee 08:12:24 WOOD GETTER CPT-46753 Venipuncture Draw Fee 11:31:07 WOOD GETTER CPT-30255 TPSA - LAB USE ONLY 11:31:07 WOOD GETTER CPT-56932 PT/INR - LAB USE ONLY 11:31:07 WOOD GETTER CPT-G0439 [facility] Annual Wellness Exam 09:59:29 WOOD GETTER CPT-21160 Creatinine - LAB USE ONLY 14:37:55 WOOD GETTER CPT-52087 PT/INR - LAB USE ONLY 14:37:55 WOOD GETTER CPT-80840 Venipuncture Draw Fee 14:37:55 WOOD GETTER CPT-52115 LS spine comp w obliques - XRAY USE ONLY 12:59:25 WOOD GETTER CPT-44314 PT/INR - LAB USE ONLY 13:49:20 CDT CPT-26442 Venipuncture Draw Fee 13:49:19 CDT CPT-96413 PT/INR - LAB USE ONLY 15:48:49 CDT CPT-58618 Venipuncture Draw Fee 15:48:49 CDT CPT-74797 Venipuncture Draw Fee 11:31:59 CDT CPT-07411 PT/INR - LAB USE ONLY 11:31:59 CDT CPT-54232 Venipuncture Draw Fee 13:29:15 CDT CPT-74563 Thoracolumbar AP/Lat 15:19:19 WOOD GETTER CPT-G0438 Initial Annual Wellness Exam 12:18:54 WOOD GETTER CPT-67299 Knee 3V 09:57:38 CDT CPT-OV Office Visit 15:45:01 WOOD GETTER CPT-00076 Abd compl w upright 17:10:25 CDT
--- OUTSIDE RECORDS SUMMARY | 2018-07-18 11:08 | XMS REPORT | Clinical Summary ---
Author Author Admin, Isidra Organization [employer] Address Unknown Phone Unavailable Allergies, Adverse Reactions, [...] Right leg pain 729.5 Resolved Piotr Katie Eid DO Pain in limb Bronchitis-Acute 466.0 Resolved [...] Coronary atherosclerosis of unspecified type of vessel, [place] or graft Back pain, thoracic region, left [...] THROMBOPHLEBITIS, LEG, 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 Inactive Sirisha Chen EDUCATION RN DEEP VENOUS THROMBOPHLEBITIS, LEG, 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 Inactive Sirisha Chen EDUCATION RN Seborrheic keratosis ICD-702.19 Inactive Sirisha Chen EDUCATION RN Bronchitis-Acute ICD-466.0 Inactive Piotr Daley DO Leg pain, right ICD-729.5 Inactive Sirisha Chen EDUCATION RN Right leg pain ICD-729.5 Inactive Sirisha Chen EDUCATION RN Bronchitis-Acute ICD-466.0 Inactive Sirisha Chen EDUCATION RN Knee pain, left ICD-719.46 Inactive Sirisha Chen EDUCATION RN Actinic keratoses ICD-702.0 Inactive Sirisha Chen EDUCATION RN Back pain, thoracic region, left ICD-724.1 Inactive [...] as needed for muscle spasm/pain CYCLOBENZAPRINE HCL 24756978923 Active Piotr Daley DO Active PREDNISONE 20 MG ORAL TABLET two tabs by mouth today, then one tab by mouth days two and three PREDNISONE 83886838652 Active Piotr Katie Edi LEON Active ZITHROMAX 250 MG ORAL TABLET Take two (2 ) tablets day one, then one (1) tablet a day for four (4) more days AZITHROMYCIN 57835969967 Active Piotr Daley Active PROAIR HFA 108 (90 BASE) MCG/ACT INHALATION AEROSOL SOLUTION 1-2 puffs four times a day as needed ALBUTEROL SULFATE 85540841863 No Longer Active Emelyn Norris Active DOXYCYCLINE HYCLATE 100 MG ORAL CAPSULE 1 cap by mouth BID x10 days DOXYCYCLINE HYCLATE 43070117720 No Longer Active Nella Harris APRN Active WARFARIN SODIUM 5 MG ORAL TABLET 1 tablet daily M-S, 1/2 tab on Heart WARFARIN SODIUM 58957058828 Active Piotr Wilson Edi LEON Active PREDNISONE 20 MG ORAL TABLET 2 tabs daily for 3 days, 1 tab daily for 3 days, 1/2 tab daily for 2 days PREDNISONE 73313593973 No Longer Active Matthew Rangel MD Active TRAMADOL HCL 50 MG ORAL TABLET 1 po tid with ES Tylenol TRAMADOL HCL 18753837797 No Longer Active Matthew Rangel MD Active GABAPENTIN 300 MG ORAL CAPSULE 1 po q hs for nerve pain GABAPENTIN 93279173927 No Longer Active Matthew Rangel MD Active PREDNISONE 20 MG ORAL TABLET 2 tablets today, then 1 tablet days 2 through 4 PREDNISONE 67710609864 No Longer Active Piotr Daley DO Active AZITHROMYCIN 250 MG ORAL TABLET 2 po qd x 1 day, then 1 po qd x 4 days 07/12 AZITHROMYCIN 34568815018 No Longer Active Piotr Daley DO Active IBUPROFEN 800 MG ORAL TABLET 1 tab every 8 hours as needed 07/12 IBUPROFEN 41200037619 No Longer Active Piotr Daley DO Active LOMOTIL 2.5-0.025 MG ORAL TABLET 1 to 2 four times a day as needed for diarrhea DIPHENOXYLATE-ATROPINE 50768774301 No Longer Active Piotr Daley DO Active WARFARIN SODIUM 4 MG ORAL TABLET 1 tab every evening WARFARIN SODIUM 22302593147 No Longer Active Piotr Daley DO Active PREDNISONE 20 MG ORAL TABLET 1 tablet twice daily for 2 days, then 1 tablet once daily for 2 days PREDNISONE 66169947132 No Longer Active Piotr Daley DO Active PROMETHAZINE HCL 25 MG ORAL TABLET 1 four times a day as needed for nausea/ vomiting PROMETHAZINE HCL 07439862644 No Longer Active Piotr Daley DO Active TUSSIONEX PENNKINETIC ER 10-8 MG/5ML ORAL SUSPENSION EXTENDED RELEASE 5ml po q12hr PRN Cough HYDROCOD POLST-CHLORPHEN POLST 14108711054 No Longer Active Piotr Daley DO Active AZITHROMYCIN 250 MG ORAL TABLET 2 po qd x 1 day, then 1 po qd x 4 days 10/13 AZITHROMYCIN 41392844071 No Longer Active Piotr Daley DO Active AZITHROMYCIN 250 MG ORAL TABLET 2 po qd x 1 day, then 1 po qd x 4 days 05/07 AZITHROMYCIN 88208506024 No Longer Active Piotr Daley DO Active LISINOPRIL-HYDROCHLOROTHIAZIDE 10-12.5 MG ORAL TABLET 1 tab by mouth daily LISINOPRIL-HYDROCHLOROTHIAZIDE 90955302595 Active Piotr Daley DO Active LISINOPRIL 10 MG ORAL TABLET 1/2-1 tab po every other day LISINOPRIL 50051640707 No Longer Active Piotr Daley DO Active VENTOLIN HFA 108 (90 Base) MCG/ACT INHALATION AEROSOL SOLUTION 2 puffs four times a day PRN cough ALBUTEROL SULFATE 88038896116 No Longer Active Piotr Daley DO Active NYSTATIN-TRIAMCINOLONE 597811-3.1 UNIT/GM-% EXTERNAL CREAM Apply to area BID NYSTATIN-TRIAMCINOLONE 31063594878 No Longer Active Alena Chavira EDUCATION RN Active PHISOHEX 3 % LIQD Use Directed HEXACHLOROPHENE 74543630038 No Longer Active Sandra Stuart Active AZITHROMYCIN 250 MG ORAL TABLET 2 po qd x 1 day, then 1 po qd x 4 days 10/21 AZITHROMYCIN 18247138674 No Longer Active Katrina Rinaldi MD PhD Active AZITHROMYCIN 250 MG ORAL TABLET 2 po qd x 1 day, then 1 po qd x 4 days 10/16 AZITHROMYCIN 01936808108 No Longer Active Piotr Daley DO Active AZITHROMYCIN 500 MG INTRAVENOUS SOLUTION RECONSTITUTED 1 po q day AZITHROMYCIN 56803564534 No Longer Active Piotr Daley DO Active NYSTATIN-TRIAMCINOLONE 859666-1.1 UNIT/GM-% EXTERNAL CREAM apply bid NYSTATIN-TRIAMCINOLONE 04770150454 No Longer Active Piotr Daley DO Active IBUPROFEN 800 MG ORAL TABLET 1 po q 8 hours prn pain sparinly IBUPROFEN 58645318598 No Longer Active Piotr Daley DO Active VITAMIN D3 5000 UNIT ORAL CAPSULE 1 po daily CHOLECALCIFEROL 55331313774 Active Piotr Daley DO Active IBUPROFEN 800 MG ORAL TABLET 1 po q 8 hours prn pain sparinly IBUPROFEN 800 MG ORAL TABLET 404062 IBUPROFEN Inactive NYSTATIN-TRIAMCINOLONE 477971-3.1 UNIT/GM-% EXTERNAL CREAM apply bid NYSTATIN-TRIAMCINOLONE 093333-3.1 UNIT/GM-% EXTERNAL CREAM 6811923 NYSTATIN-TRIAMCINOLONE Inactive AZITHROMYCIN 500 MG INTRAVENOUS SOLUTION RECONSTITUTED 1 po q day AZITHROMYCIN 500 MG INTRAVENOUS SOLUTION RECONSTITUTED 51803342336 AZITHROMYCIN Inactive VENTOLIN HFA 108 (90 Base) MCG/ACT INHALATION AEROSOL SOLUTION 2 puffs four times a day PRN cough VENTOLIN HFA 108 (90 Base) MCG/ ACT INHALATION AEROSOL SOLUTION ALBUTEROL SULFATE Inactive LISINOPRIL 10 MG ORAL TABLET 1/2-1 tab po every other day LISINOPRIL 10 MG ORAL TABLET 114051 LISINOPRIL Inactive TUSSIONEX PENNKINETIC ER 10-8 MG/5ML ORAL SUSPENSION EXTENDED RELEASE 5ml po q12hr PRN Cough TUSSIONEX PENNKINETIC ER 10-8 MG/5ML ORAL SUSPENSION EXTENDED RELEASE HYDROCOD POLST-CHLORPHEN POLST Inactive PROMETHAZINE HCL 25 MG ORAL TABLET 1 four times a day as needed for nausea/ vomiting PROMETHAZINE HCL 25 MG ORAL TABLET 112588 PROMETHAZINE HCL Inactive PREDNISONE 20 MG ORAL TABLET 1 tablet twice daily for 2 days, then 1 tablet once daily for 2 days PREDNISONE 20 MG ORAL TABLET 644734 PREDNISONE Inactive WARFARIN SODIUM 4 MG ORAL TABLET 1 tab every evening WARFARIN SODIUM 4 MG ORAL TABLET 864416 WARFARIN SODIUM Inactive LOMOTIL 2.5-0.025 MG ORAL TABLET 1 to 2 four times a day as needed for diarrhea LOMOTIL 2.5-0.025 MG ORAL TABLET 3208793 DIPHENOXYLATE-ATROPINE Inactive IBUPROFEN 800 MG ORAL TABLET 1 tab every 8 hours as needed 07/12 IBUPROFEN 800 MG ORAL TABLET 182572 IBUPROFEN Inactive PREDNISONE 20 MG ORAL TABLET 2 tablets today, then 1 tablet days 2 through 4 PREDNISONE 20 MG ORAL TABLET 234441 PREDNISONE Inactive GABAPENTIN 300 MG ORAL CAPSULE 1 po q hs for nerve pain GABAPENTIN 300 MG ORAL CAPSULE 149179 GABAPENTIN Inactive TRAMADOL HCL 50 MG ORAL TABLET 1 po tid with ES Tylenol TRAMADOL HCL 50 MG ORAL TABLET 314266 TRAMADOL HCL Inactive PROAIR HFA 108 (90 BASE) MCG/ACT INHALATION AEROSOL SOLUTION 1-2 puffs four times a day as needed PROAIR HFA 108 (90 BASE) MCG/ACT INHALATION AEROSOL SOLUTION ALBUTEROL SULFATE Inactive AZITHROMYCIN 250 MG ORAL TABLET 2 po qd x 1 day, then 1 po qd x 4 days 10/16 AZITHROMYCIN 250 MG ORAL TABLET 338936 AZITHROMYCIN Inactive AZITHROMYCIN 250 MG ORAL TABLET 2 po qd x 1 day, then 1 po qd x 4 days 10/21 AZITHROMYCIN 250 MG ORAL TABLET 456586 AZITHROMYCIN Inactive NYSTATIN-TRIAMCINOLONE 135290-6.1 UNIT/GM-% EXTERNAL CREAM Apply to area BID NYSTATIN-TRIAMCINOLONE 929312-7.1 UNIT/GM-% EXTERNAL CREAM 5723708 NYSTATIN-TRIAMCINOLONE Inactive AZITHROMYCIN 250 MG ORAL TABLET 2 po qd x 1 day, then 1 po qd x 4 days 05/07 AZITHROMYCIN 250 MG ORAL TABLET 816010 AZITHROMYCIN Inactive AZITHROMYCIN 250 MG ORAL TABLET 2 po qd x 1 day, then 1 po qd x 4 days 10/13 AZITHROMYCIN 250 MG ORAL TABLET 825825 AZITHROMYCIN Inactive AZITHROMYCIN 250 MG ORAL TABLET 2 po qd x 1 day, then 1 po qd x 4 days 07/12 AZITHROMYCIN 250 MG ORAL TABLET 162305 AZITHROMYCIN Inactive PREDNISONE 20 MG ORAL TABLET 2 tabs daily for 3 days, 1 tab daily for 3 days, 1/2 tab daily for 2 days PREDNISONE 20 MG ORAL TABLET 514788 PREDNISONE Inactive DOXYCYCLINE HYCLATE 100 MG ORAL CAPSULE 1 cap by mouth BID x10 days DOXYCYCLINE HYCLATE 100 MG ORAL CAPSULE 4097534 DOXYCYCLINE HYCLATE Inactive Advance Directives Directive Description [...] Panel - Chemistry sodium, serum 141 mmol/L 372-525 5951/01/24 potassium, serum 4.3 mmol/L 3.5-5.2 chloride, serum [...] % 11.0-15.0 platelet count 172 THOUSAND/UL 10*3/mm3 137-426 5460/04/12 mean platelet volume 8.6 fL 7.5-12.5 Lab Report: Prothrombin Time - Coagulation prothrombin time (patient) 27.8 SECS s 11.1-13.4 international normalized ratio (INR) 4.2 1.0-3.5 Lab Report: Prothrombin Time Hemochron - Coagulation prothrombin time (patient) 33.0 SECS s 18.9-24.9 Encounters Code Encounter Date Provider Facility CPT-79567 Level 3 Est. Patient 15:56:17 BILL ADJUSTER Piotr Daley [facility] CPT-56555 Level 3 Est. Patient 10:34:54 BILL ADJUSTER Piotr Daley [facility] CPT-59505 Level 3 Est. Patient 17:10:[facility] Level 3 Est. Patient 10:48:17 BILL ADJUSTER Matthew Rangel MD [facility] CPT-48519 Level 4 Est. Patient 17:15:07 BILL ADJUSTER Piotr Daley [facility] CPT-73675 Level 3 Est. Patient 12:46:13 BILL ADJUSTER Piotr Daley [facility] CPT-15113 Level 3 Est. Patient 15:14:31 BILL ADJUSTER Piotr Daley [facility] CPT-65207 Level 3 Est. Patient 09:20:13 BILL ADJUSTER Piotr Daley [facility] CPT-17641 Level 3 Est. Patient 09:49:40 CDT Piotr Daley [facility] CPT-22160 Level 3 Est. Patient 16:28:11 CDT Piotr Daley [facility] CPT-50059 Level 3 Est. Patient 12:41:58 BILL ADJUSTER Piort Daley [facility] CPT-11774 Level 3 Est. Patient 09:21:24 CDT Piotr Daley [facility] CPT-34724 Level 3 Est. Patient 09:21:11 CDT Piotr Daley [facility] CPT-09017 Level 3 Est. Patient 11:16:29 BILL ADJUSTER Piotr Daley [facility] CPT-34325 Level 3 Est. Patient 18:40:19 BILL ADJUSTER Piotr Daley [facility] CPT-22326 Level 3 Est. Patient 19:30:50 CDT Piotr Daley [facility] CPT-35060 Level 3 Est. Patient 22:06:44 CDT Katrina Rinaldi MD PhD [facility] [place]-[address] Level 3 Est. Patient 14:20:00 CDT Piotr Daley [facility] CPT-54450 Level 3 Est. Patient 14:15:22 BILL ADJUSTER Piotr Daley [facility] CPT-18566 Level 3 Est. Patient 20:19:57 BILL ADJUSTER Piotr Daley [facility] CPT-47642 Level 3 Est. Patient 16:44:32 CDT Piotr Daley [facility] CPT-10544 Level 3 Est. Patient 08:48:46 BILL ADJUSTER Piotr Daley [facility] CPT-52937 Level 3 Est. Patient 21:01:21 CDT Piotr Daley [facility] Procedures Code Procedure Name Date Entry Date Standard Description CPT-G0439 Subsequent Annual Wellness Exam 10:34:52 [facility] CPT-23244 BMP - LAB USE ONLY 17:19:11 BILL ADJUSTER CPT-45009 PT/INR - LAB USE ONLY 17:19:10 [facility] CPT-99723 Venipuncture Draw Fee 17:19:10 BILL ADJUSTER CPT-32469 PT/INR - LAB USE ONLY 08:12:25 BILL ADJUSTER CPT-56386 Venipuncture Draw Fee 08:12:24 BILL ADJUSTER CPT-54149 Venipuncture Draw Fee 11:31:07 BILL ADJUSTER CPT-15232 TPSA - LAB USE ONLY 11:31:07 BILL ADJUSTER CPT-01785 PT/INR - LAB USE ONLY 11:31:07 [facility] CPT-G0439 Subsequent Annual Wellness Exam 09:59:29 BILL ADJUSTER CPT-84647 Creatinine - LAB USE ONLY 14:37:55 BILL ADJUSTER CPT-31712 PT/INR - LAB USE ONLY 14:37:55 BILL ADJUSTER CPT-72136 Venipuncture Draw Fee 14:37:55 BILL ADJUSTER CPT-40722 LS spine comp w obliques - XRAY USE ONLY 12:59:25 BILL ADJUSTER CPT-99969 PT/INR - LAB USE ONLY 13:49:20 CDT CPT-27072 Venipuncture Draw Fee 13:49:19 CDT CPT-70997 PT/INR - LAB USE ONLY 15:48:49 CDT CPT-98940 Venipuncture Draw Fee 15:48:49 CDT CPT-86512 Venipuncture Draw Fee 11:31:59 CDT CPT-58554 PT/INR - LAB USE ONLY 11:31:59 CDT CPT-65196 Venipuncture Draw Fee 13:29:15 CDT CPT-25428 Thoracolumbar AP/Lat 15:19:19 BILL ADJUSTER CPT-G0438 Initial Annual Wellness Exam 12:18:54 BILL ADJUSTER CPT-62961 Knee 3V 09:57:38 CDT CPT-OV Office Visit 15:45:01 BILL ADJUSTER CPT-51676 Abd compl w upright 17:10:25 CDT
--- OUTSIDE RECORDS SUMMARY | 2018-07-18 11:09 | XMS REPORT | Clinical Summary ---
Author Author Admin, Isidra Organization [employer] Address Unknown Phone Unavailable Allergies, Adverse Reactions, [...] Coronary atherosclerosis of unspecified type of vessel, [place] or graft Back pain, thoracic region, left [...] times a day as needed ALBUTEROL SULFATE 64262314479 Active Matthew Rangel MD Active PREDNISONE 20 MG TAB 2 tabs daily for 3 days, 1 tab daily for 3 days, 1/2 tab daily for 2 days PREDNISONE 50127717647 No Longer Active Matthew Rangel MD Active TRAMADOL HCL 50 MG TABS 1 po tid with ES Tylenol TRAMADOL HCL 91250209710 No Longer Active Matthew Rangel MD Active GABAPENTIN 300 MG CAPS 1 po q hs for nerve pain GABAPENTIN 12544491730 No Longer Active Matthew Rangel MD Active WARFARIN SODIUM 5 MG TABS 1 tablet daily WARFARIN SODIUM 46519886092 Active Piotr Daley DO Active PREDNISONE 20 MG TAB 2 tablets today, then 1 tablet days 2 through 4 PREDNISONE 08147598727 No Longer Active Piotr Daley DO Active AZITHROMYCIN 250 MG TABS 2 po qd x 1 day, then 1 po qd x 4 days AZITHROMYCIN 82682243091 No Longer Active Piotr Daley DO Active IBUPROFEN 800 MG TABS 1 tab every 8 hours as needed IBUPROFEN 35267304124 No Longer Active Piotr Daley DO Active LOMOTIL 2.5-0.025 MG TAB 1 to 2 four times a day as needed for diarrhea 10/13 DIPHENOXYLATE-ATROPINE 28295792678 No Longer Active Piotr Daley DO Active WARFARIN SODIUM 4 MG TABS 1 tab every evening WARFARIN SODIUM 37259563250 No Longer Active Piotr Daley DO Active PREDNISONE 20 MG TAB 1 tablet twice daily for 2 days, then 1 tablet once daily for 2 days PREDNISONE 16671811083 No Longer Active Piotr Daley DO Active PROMETHAZINE HCL 25 MG TABS 1 four times a day as needed for nausea/vomiting PROMETHAZINE HCL 29193305133 No Longer Active Piotr Daley DO Active TUSSIONEX PENNKINETIC ER 10-8 MG/5ML LQCR 5ml po q12hr PRN Cough HYDROCOD POLST-CHLORPHEN POLST 30723453991 No Longer Active Piotr Daley DO Active AZITHROMYCIN 250 MG TABS 2 po qd x 1 day, then 1 po qd x 4 days AZITHROMYCIN 91218466930 No Longer Active Piotr Daley DO Active AZITHROMYCIN 250 MG TABS 2 po qd x 1 day, then 1 po qd x 4 days AZITHROMYCIN 20345612110 No Longer Active Piotr Daley DO Active LISINOPRIL-HYDROCHLOROTHIAZIDE 10-12.5 MG TABS 1 tab by mouth daily LISINOPRIL-HYDROCHLOROTHIAZIDE 62736193304 Active Catalina Freitas Active LISINOPRIL 10 MG TABS 1/2-1 tab po every other day LISINOPRIL 79658884897 No Longer Active Piotr Daley DO Active VENTOLIN HFA 108 (90 BASE) MCG/ACT AERS 2 puffs four times a day PRN cough ALBUTEROL SULFATE 86023151508 No Longer Active Piotr Daley DO Active NYSTATIN-TRIAMCINOLONE 755821-7.1 UNIT/GM-% CREA Apply to area BID NYSTATIN-TRIAMCINOLONE 21181986444 No Longer Active Alena Chavira NURSING DEPARTMENT CHAIRPERSON Active PHISOHEX 3 % LIQD Use Directed HEXACHLOROPHENE 12998513901 No Longer Active Sandra Dentarger Active AZITHROMYCIN 250 MG TABS 2 po qd x 1 day, then 1 po qd x 4 days AZITHROMYCIN 38648610901 No Longer Active Katrina Rinaldi MD PhD Active AZITHROMYCIN 250 MG TABS 2 po qd x 1 day, then 1 po qd x 4 days AZITHROMYCIN 61224828389 No Longer Active Piotr Daley DO Active AZITHROMYCIN 500 MG SOLR 1 po q day AZITHROMYCIN 22017736715 No Longer Active Piotr Daley DO Active NYSTATIN-TRIAMCINOLONE 263100-5.1 UNIT/GM-% CREA apply bid 08/19 NYSTATIN-TRIAMCINOLONE 70395957387 No Longer Active Piotr Daley DO Active IBUPROFEN 800 MG TABS 1 po q 8 hours prn pain sparinly IBUPROFEN 72525236917 No Longer Active Piotr Daley DO Active VITAMIN D3 5000 UNIT CAPS 1 po daily CHOLECALCIFEROL 18913275268 Active Piotr Daley DO Active IBUPROFEN 800 MG TABS 1 po q 8 hours prn pain sparinly IBUPROFEN 800 MG TABS 860191 IBUPROFEN Inactive NYSTATIN-TRIAMCINOLONE 307058-9.1 UNIT/GM-% CREA apply bid 08/19 NYSTATIN-TRIAMCINOLONE 511774-4.1 UNIT/GM-% CREA 3694050 NYSTATIN- TRIAMCINOLONE Inactive AZITHROMYCIN 500 MG SOLR 1 po q day AZITHROMYCIN 500 MG SOLR 67698309842 AZITHROMYCIN Inactive VENTOLIN HFA 108 (90 BASE) MCG/ACT AERS 2 puffs four times a day PRN cough VENTOLIN HFA 108 (90 BASE) MCG/ACT AERS ALBUTEROL SULFATE Inactive LISINOPRIL 10 MG TABS 1/2-1 tab po every other day LISINOPRIL 10 MG TABS 789534 LISINOPRIL Inactive TUSSIONEX PENNKINETIC ER 10-8 MG/5ML LQCR 5ml po q12hr PRN Cough TUSSIONEX PENNKINETIC ER 10-8 MG/5ML LQCR HYDROCOD POLST- CHLORPHEN POLST Inactive PROMETHAZINE HCL 25 MG TABS 1 four times a day as needed for nausea/vomiting PROMETHAZINE HCL 25 MG TABS 211005 PROMETHAZINE HCL Inactive PREDNISONE 20 MG TAB 1 tablet twice daily for 2 days, then 1 tablet once daily for 2 days PREDNISONE 20 MG TAB 823553 PREDNISONE Inactive WARFARIN SODIUM 4 MG TABS 1 tab every evening WARFARIN SODIUM 4 MG TABS 777629 WARFARIN SODIUM Inactive LOMOTIL 2.5-0.025 MG TAB 1 to 2 four times a day as needed for diarrhea 10/13 LOMOTIL 2.5-0.025 MG TAB 6770974 DIPHENOXYLATE-ATROPINE Inactive IBUPROFEN 800 MG TABS 1 tab every 8 hours as needed IBUPROFEN 800 MG TABS 694446 IBUPROFEN Inactive PREDNISONE 20 MG TAB 2 tablets today, then 1 tablet days 2 through 4 PREDNISONE 20 MG TAB 157617 PREDNISONE Inactive GABAPENTIN 300 MG CAPS 1 po q hs for nerve pain GABAPENTIN 300 MG CAPS 028945 GABAPENTIN Inactive TRAMADOL HCL 50 MG TABS 1 po tid with ES Tylenol TRAMADOL HCL 50 MG TABS 783880 TRAMADOL HCL Inactive AZITHROMYCIN 250 MG TABS 2 po qd x 1 day, then 1 po qd x 4 days AZITHROMYCIN 250 MG TABS 5974472 AZITHROMYCIN Inactive AZITHROMYCIN 250 MG TABS 2 po qd x 1 day, then 1 po qd x 4 days AZITHROMYCIN 250 MG TABS 6091190 AZITHROMYCIN Inactive NYSTATIN-TRIAMCINOLONE 119272-0.1 UNIT/GM-% CREA Apply to area BID NYSTATIN-TRIAMCINOLONE 674645-7.1 UNIT/GM-% CREA 9209787 NYSTATIN-TRIAMCINOLONE Inactive AZITHROMYCIN 250 MG TABS 2 po qd x 1 day, then 1 po qd x 4 days AZITHROMYCIN 250 MG TABS 7488653 AZITHROMYCIN Inactive AZITHROMYCIN 250 MG TABS 2 po qd x 1 day, then 1 po qd x 4 days AZITHROMYCIN 250 MG TABS 8010703 AZITHROMYCIN Inactive AZITHROMYCIN 250 MG TABS 2 po qd x 1 day, then 1 po qd x 4 days AZITHROMYCIN 250 MG TABS 8775190 AZITHROMYCIN Inactive PREDNISONE 20 MG TAB 2 tabs daily for 3 days, 1 tab daily for 3 days, 1/2 tab daily for 2 days PREDNISONE 20 MG TAB 842431 PREDNISONE Inactive Advance Directives Directive Description Start [...] Panel - Chemistry sodium, serum 141 mmol/L 272-198 5640/01/24 potassium, serum 4.3 mmol/L 3.5-5.2 chloride, serum [...] % 11.0-15.0 platelet count 172 THOUSAND/UL 10*3/mm3 768-626 1270/04/12 mean platelet volume 8.6 fL 7.5-12.5 Lab Report: Comp. Metabolic Panel - Chemistry sodium, serum 141 mmol/L 322-338 6612/06/28 carbon dioxide, venous blood 31.0 mmol/L 21.0-32.0 [...] 1.0-3.5 Encounters Code Encounter Date Provider Facility CPT-24633 Level 3 Est. Patient 10:48:17 COMMERCIAL MANAGER Matthew Rangel MD [facility] CPT-05967 Level 4 Est. Patient 17:15:07 COMMERCIAL MANAGER Piotr Daley [facility] CPT-76701 Level 3 Est. Patient 12:46:13 COMMERCIAL MANAGER Piotr Daley [facility] CPT-71612 Level 3 Est. Patient 15:14:31 COMMERCIAL MANAGER Piotr Daley [facility] CPT-53078 Level 3 Est. Patient 09:20:13 COMMERCIAL MANAGER Piotr Daley [facility] CPT-25122 Level 3 Est. Patient 09:49:40 CDT Piotr Wilson [facility] CPT-48390 Level 3 Est. Patient 16:28:11 CDT Piotr Daley [facility] CPT-44699 Level 3 Est. Patient 12:41:58 COMMERCIAL MANAGER Piotr Daley [facility] CPT-69973 Level 3 Est. Patient 09:21:24 CDT Piotr Daley [facility] CPT-49029 Level 3 Est. Patient 09:21:11 CDT Piotr Daley [facility] CPT-41860 Level 3 Est. Patient 11:16:29 COMMERCIAL MANAGER Piotr Daley [facility] CPT-43257 Level 3 Est. Patient 18:40:19 COMMERCIAL MANAGER Piotr Daley [facility] CPT-10226 Level 3 Est. Patient 19:30:50 CDT Piotr Daley [facility] CPT-45228 Level 3 Est. Patient 22:06:44 CDT Katrina Rinaldi MD [facility] CPT-76033 Level 3 Est. Patient 14:20:00 CDT Piotr Daley [facility] CPT-82292 Level 3 Est. Patient 14:15:22 COMMERCIAL MANAGER Piotr Daley [facility] CPT-45143 Level 3 Est. Patient 20:19:57 COMMERCIAL MANAGER Piotr Daley [facility] CPT-22373 Level 3 Est. Patient 16:44:32 CDT Piotr Daley [facility] CPT-05869 Level 3 Est. Patient 08:48:46 COMMERCIAL MANAGER Piotr Daley [facility] CPT-93531 Level 3 Est. Patient 21:01:21 CDT Piotr Daley [facility] Procedures Code Procedure Name Date Entry Date Standard Description CPT-91837 BMP - LAB USE ONLY 17:19:11 COMMERCIAL MANAGER CPT-26095 PT/INR - LAB USE ONLY 17:19:10 COMMERCIAL MANAGER CPT-92113 Venipuncture Draw Fee 17:19:10 COMMERCIAL MANAGER CPT-37106 PT/INR - LAB USE ONLY 08:12:25 COMMERCIAL MANAGER CPT-29027 Venipuncture Draw Fee 08:12:24 COMMERCIAL MANAGER CPT-00250 Venipuncture Draw Fee 11:31:07 COMMERCIAL MANAGER CPT-56593 TPSA - LAB USE ONLY 11:31:07 COMMERCIAL MANAGER CPT-10828 PT/INR - LAB USE ONLY 11:31:07 COMMERCIAL MANAGER CPT-G0439 [facility] Annual Wellness Exam 09:59:29 COMMERCIAL MANAGER CPT-58621 Creatinine - LAB USE ONLY 14:37:55 COMMERCIAL MANAGER CPT-00322 PT/INR - LAB USE ONLY 14:37:55 COMMERCIAL MANAGER CPT-66769 Venipuncture Draw Fee 14:37:55 COMMERCIAL MANAGER CPT-98870 LS spine comp w obliques - XRAY USE ONLY 12:59:25 COMMERCIAL MANAGER CPT-93508 PT/INR - LAB USE ONLY 13:49:20 CDT CPT-05177 Venipuncture Draw Fee 13:49:19 CDT CPT-96968 PT/INR - LAB USE ONLY 15:48:49 CDT CPT-08016 Venipuncture Draw Fee 15:48:49 CDT CPT-94003 Venipuncture Draw Fee 11:31:59 CDT CPT-58371 PT/INR - LAB USE ONLY 11:31:59 CDT CPT-94267 Venipuncture Draw Fee 13:29:15 CDT CPT-01810 Thoracolumbar AP/Lat 15:19:19 COMMERCIAL MANAGER CPT-G0438 Initial Annual Wellness Exam 12:18:54 COMMERCIAL MANAGER CPT-69902 Knee 3V 09:57:38 CDT CPT-OV Office Visit 15:45:01 COMMERCIAL MANAGER CPT-32429 Abd compl w upright 17:10:25 CDT
--- OUTSIDE RECORDS SUMMARY | 2018-07-18 11:09 | XMS REPORT | Clinical Summary ---
Author Author Admin, YONG Organization [facility] Address Unknown Phone Unavailable Allergies, Adverse Reactions, [...] Active Piotr Daley DO Pain in limb FLANK PAIN, RIGHT ICD-789.09 Inactive Katrina Rinaldi [...] Provider Patient Instruction WARFARIN SODIUM 4 MG TABS 1 tab every evening WARFARIN SODIUM 01375398914 No Longer Active Piotr Daley DO Active WARFARIN SODIUM 5 MG TABS 1 tablet daily except for 1.5 tablet saturday, sat and sat. WARFARIN SODIUM 61645434439 Active Piotr Daley DO Active PREDNISONE 20 MG TAB 1 tablet twice daily for 2 days, then 1 tablet once daily for 2 days PREDNISONE 00367880194 No Longer Active Piotr Daley DO Active PROMETHAZINE HCL 25 MG TABS 1 four times a day as needed for nausea/vomiting PROMETHAZINE HCL 41166257376 No Longer Active Piotr Daley DO Active TUSSIONEX PENNKINETIC ER 10-8 MG/5ML LQCR 5ml po q12hr PRN Cough HYDROCOD POLST-CHLORPHEN POLST 76725741304 No Longer Active Piotr Daley DO Active AZITHROMYCIN 250 MG TABS 2 po qd x 1 day, then 1 po qd x 4 days AZITHROMYCIN 76143264865 No Longer Active Piotr Daley DO Active LOMOTIL 2.5-0.025 MG TAB 1 to 2 four times a day as needed for diarrhea 10/13 DIPHENOXYLATE-ATROPINE 01827369848 Active Piotr Daley DO Active AZITHROMYCIN 250 MG TABS 2 po qd x 1 day, then 1 po qd x 4 days AZITHROMYCIN 86094729365 No Longer Active Piotr Daley DO Active LISINOPRIL-HYDROCHLOROTHIAZIDE 10-12.5 MG TABS 1 tab by mouth daily LISINOPRIL-HYDROCHLOROTHIAZIDE 16657557559 Active Piotr Daley DO Active LISINOPRIL 10 MG TABS 1/2-1 tab po every other day LISINOPRIL 96397693710 No Longer Active Piotr Daley DO Active VENTOLIN HFA 108 (90 BASE) MCG/ACT AERS 2 puffs four times a day PRN cough ALBUTEROL SULFATE 82199862033 No Longer Active Piotr Daley DO Active NYSTATIN-TRIAMCINOLONE 620707-6.1 UNIT/GM-% CREA Apply to area BID NYSTATIN-TRIAMCINOLONE 22519146181 No Longer Active Alena Jarvis Fan BRAILLE TEACHER Active PHISOHEX 3 % LIQD Use Directed HEXACHLOROPHENE 68460544408 No Longer Active Sandra [place] Active AZITHROMYCIN 250 MG TABS 2 po qd x 1 day, then 1 po qd x 4 days AZITHROMYCIN 07324477749 No Longer Active Katrina Rinaldi MD PhD Active AZITHROMYCIN 250 MG TABS 2 po qd x 1 day, then 1 po qd x 4 days AZITHROMYCIN 36816216519 No Longer Active Piotr Daley DO Active AZITHROMYCIN 500 MG SOLR 1 po q day AZITHROMYCIN 44441453475 No Longer Active Piotr Daley DO Active IBUPROFEN 800 MG TABS 1 tab every 8 hours as needed IBUPROFEN 33226253507 Active Ellen Feliciano RN Active NYSTATIN-TRIAMCINOLONE 149918-6.1 UNIT/GM-% CREA apply bid 08/19 NYSTATIN-TRIAMCINOLONE 93784041604 No Longer Active Piotr Daley DO Active IBUPROFEN 800 MG TABS 1 po q 8 hours prn pain sparinly IBUPROFEN 57948880174 No Longer Active Piotr Daley DO Active VITAMIN D3 5000 UNIT CAPS 1 po daily CHOLECALCIFEROL 84161569509 Active Piotr Daley DO Active IBUPROFEN 800 MG TABS 1 po q 8 hours prn pain sparinly IBUPROFEN 800 MG TABS 908770 IBUPROFEN Inactive NYSTATIN-TRIAMCINOLONE 987644-3.1 UNIT/GM-% CREA apply bid 08/19 NYSTATIN-TRIAMCINOLONE 883685-2.1 UNIT/GM-% CREA 6105937 NYSTATIN- TRIAMCINOLONE Inactive AZITHROMYCIN 500 MG SOLR 1 po q day AZITHROMYCIN 500 MG SOLR 897437 AZITHROMYCIN Inactive VENTOLIN HFA 108 (90 BASE) MCG/ACT AERS 2 puffs four times a day PRN cough VENTOLIN HFA 108 (90 BASE) MCG/ACT AERS ALBUTEROL SULFATE Inactive LISINOPRIL 10 MG TABS 1/2-1 tab po every other day LISINOPRIL 10 MG TABS 575651 LISINOPRIL Inactive TUSSIONEX PENNKINETIC ER 10-8 MG/5ML LQCR 5ml po q12hr PRN Cough TUSSIONEX PENNKINETIC ER 10-8 MG/5ML LQCR HYDROCOD POLST- CHLORPHEN POLST Inactive PROMETHAZINE HCL 25 MG TABS 1 four times a day as needed for nausea/vomiting PROMETHAZINE HCL 25 MG TABS 390016 PROMETHAZINE HCL Inactive PREDNISONE 20 MG TAB 1 tablet twice daily for 2 days, then 1 tablet once daily for 2 days PREDNISONE 20 MG TAB 060126 PREDNISONE Inactive WARFARIN SODIUM 4 MG TABS 1 tab every evening WARFARIN SODIUM 4 MG TABS 260087 WARFARIN SODIUM Inactive AZITHROMYCIN 250 MG TABS 2 po qd x 1 day, then 1 po qd x 4 days AZITHROMYCIN 250 MG TABS 1283555 AZITHROMYCIN Inactive AZITHROMYCIN 250 MG TABS 2 po qd x 1 day, then 1 po qd x 4 days AZITHROMYCIN 250 MG TABS 1606628 AZITHROMYCIN Inactive NYSTATIN-TRIAMCINOLONE 284628-9.1 UNIT/GM-% CREA Apply to area BID NYSTATIN-TRIAMCINOLONE 181946-8.1 UNIT/GM-% CREA 0062150 NYSTATIN-TRIAMCINOLONE Inactive AZITHROMYCIN 250 MG TABS 2 po qd x 1 day, then 1 po qd x 4 days AZITHROMYCIN 250 MG TABS 1177061 AZITHROMYCIN Inactive AZITHROMYCIN 250 MG TABS 2 po qd x 1 day, then 1 po qd x 4 days AZITHROMYCIN 250 MG TABS 9893815 AZITHROMYCIN Inactive Vital Signs Date Name Value Unit Range Description blood pressure, diastolic - 8462-4 68 mm[Hg] [...] E&M - 3141-9 230 [lb_av] Weight Measured blood pressure, diastolic - 8462-4 86 mm[Hg] BP phan blood pressure, systolic - 8480-6 132 mm[Hg] BP sys height E&M - 8302-2 71.5 [in_us] Bdy height pulse rate E&M - 8867-4 89 /min Heart rate temperature E&M 100.2 [degF] Body temperature weight E&M - 3141-9 226 [lb_av] Weight Measured Diagnostic Results Date Name Value Unit Range Description Lab Report: Prothrombin Time - Coagulation prothrombin [...] Panel, CBC, Prostatic Spec ... - Chemistry prostate specific antigen 0.08 ng/mL 0.00-4.00 sodium, serum 142 mmol/L 281-663 4709/12/01 potassium, serum 4.7 mmol/L 3.5-5.2 chloride, serum 102 mmol/L 98-107 carbon dioxide, venous blood 31.8 mmol/L 21.0-32.0 blood glucose 101 mg/dL 65-110 calcium, serum 9.7 mg/dL 8.5-10.1 urea nitrogen, blood 14 mg/dL 7-18 creatinine, serum 1.10 mg/dL 0.60-1.30 Lab Report: Prothrombin Time, Basic Metabolic Panel, [...] 142-424 Encounters Code Encounter Date Provider Facility CPT-37068 Level 3 Est. Patient 12:41:58 SAP MOBILITY ARCHITECT Piotr Wilson [facility] CPT-57691 Level 3 Est. Patient 09:21:24 CDT Piotr Wilson [facility] CPT-10849 Level 3 Est. Patient 09:21:11 CDT Piotr Wilson [facility] CPT-78532 Level 3 Est. Patient 11:16:29 SAP MOBILITY ARCHITECT Piotr Daley [facility] CPT-59429 Level 3 Est. Patient 18:40:19 SAP MOBILITY ARCHITECT Piotr Wilson [facility] CPT-70388 Level 3 Est. Patient 19:30:50 CDT Piotr Daley [facility] CPT-19874 Level 3 Est. Patient 22:06:44 CDT Katrina Rinaldi MD PhD [facility] CPT-41679 Level 3 Est. Patient 14:20:00 CDT Piotr Daley [facility] CPT-91449 Level 3 Est. Patient 14:15:22 SAP MOBILITY ARCHITECT Piotr Daley [facility] CPT-28093 Level 3 Est. Patient 20:19:57 SAP MOBILITY ARCHITECT Piotr Daley [facility] CPT-83496 Level 3 Est. Patient 16:44:32 CDT Piotr Daley [facility] CPT-84914 Level 3 Est. Patient 08:48:46 SAP MOBILITY ARCHITECT Piotr Daley [facility] CPT-77627 Level 3 Est. Patient 21:01:21 CDT Piotr Daley [facility] Procedures Code Procedure Name Date Entry Date Standard Description CPT-OV Office Visit 15:45:01 SAP MOBILITY ARCHITECT CPT-71346 Abd compl w upright 17:10:25 CDT
--- OUTSIDE RECORDS SUMMARY | 2018-07-18 11:10 | XMS REPORT | Clinical Summary ---
Author Author Admin, YONG Organization [facility] Address Unknown Phone Unavailable Allergies, Adverse [...] Leg pain, right 729.5 Active Piotr Katie Daley DO Pain in limb Right leg pain 729.5 Active Piotr Katie Daley DO Pain in limb FLANK PAIN, [...] Generic Name NDC Status Provider Patient Instruction PROMETHAZINE HCL 25 MG TABS 1 four times a day as needed for nausea/vomiting PROMETHAZINE HCL 52161762645 No Longer Active Piotr Daley DO Active TUSSIONEX PENNKINETIC ER 10-8 MG/5ML LQCR 5ml po q12hr PRN Cough HYDROCOD POLST-CHLORPHEN POLST 20258538209 No Longer Active Piotr Daley DO Active AZITHROMYCIN 250 MG TABS 2 po qd x 1 day, then 1 po qd x 4 days AZITHROMYCIN 06541417415 No Longer Active Piotr Daley DO Active LOMOTIL 2.5-0.025 MG TAB 1 to 2 four times a day as needed for diarrhea 10/13 DIPHENOXYLATE-ATROPINE 44706181885 Active Piotr Daley DO Active PREDNISONE 20 MG TAB 1 tablet twice daily for 2 days, then 1 tablet once daily for 2 days PREDNISONE 33614097819 Active Pitor Daley DO Active AZITHROMYCIN 250 MG TABS 2 po qd x 1 day, then 1 po qd x 4 days AZITHROMYCIN 05720574187 No Longer Active Piotr Daley DO Active LISINOPRIL-HYDROCHLOROTHIAZIDE 10-12.5 MG TABS 1 tab by mouth daily LISINOPRIL-HYDROCHLOROTHIAZIDE 05205631632 Active Piotr Daley DO Active LISINOPRIL 10 MG TABS 1/2-1 tab po every other day LISINOPRIL 84231932776 No Longer Active Piotr Daley DO Active WARFARIN SODIUM 4 MG TABS 1 tab every evening WARFARIN SODIUM 80466716211 Active Piotr Daley DO Active VENTOLIN HFA 108 (90 BASE) MCG/ACT AERS 2 puffs four times a day PRN cough ALBUTEROL SULFATE 93315578040 No Longer Active Piotr Daley DO Active NYSTATIN-TRIAMCINOLONE 256450-7.1 UNIT/GM-% CREA Apply to area BID NYSTATIN-TRIAMCINOLONE 72550029203 No Longer Active Alena Chavira CORRECTIONS OFFICER Active PHISOHEX 3 % LIQD Use Directed HEXACHLOROPHENE 58107694177 No Longer Active Sandra Galloway Active AZITHROMYCIN 250 MG TABS 2 po qd x 1 day, then 1 po qd x 4 days AZITHROMYCIN 58333986671 No Longer Active Katrina Rinaldi MD PhD Active AZITHROMYCIN 250 MG TABS 2 po qd x 1 day, then 1 po qd x 4 days AZITHROMYCIN 26469715489 No Longer Active Piotr Daley DO Active AZITHROMYCIN 500 MG SOLR 1 po q day AZITHROMYCIN 44592612827 No Longer Active Piotr Daley DO Active IBUPROFEN 800 MG TABS 1 tab every 8 hours as needed IBUPROFEN 85047002386 Active Ellen Feliciano RN Active NYSTATIN-TRIAMCINOLONE 872985-5.1 UNIT/GM-% CREA apply bid 08/19 NYSTATIN-TRIAMCINOLONE 99701349952 No Longer Active Piotr Daley DO Active IBUPROFEN 800 MG TABS 1 po q 8 hours prn pain sparinly IBUPROFEN 28037046392 No Longer Active Piotr Daley DO Active VITAMIN D3 5000 UNIT CAPS 1 po daily CHOLECALCIFEROL 92345471602 Active Piotr Daley DO Active IBUPROFEN 800 MG TABS 1 po q 8 hours prn pain sparinly IBUPROFEN 800 MG TABS 826423 IBUPROFEN Inactive NYSTATIN-TRIAMCINOLONE 404627-8.1 UNIT/GM-% CREA apply bid 08/19 NYSTATIN-TRIAMCINOLONE 081099-0.1 UNIT/GM-% CREA 2683677 NYSTATIN- TRIAMCINOLONE Inactive AZITHROMYCIN 500 MG SOLR 1 po q day AZITHROMYCIN 500 MG SOLR 300793 AZITHROMYCIN Inactive VENTOLIN HFA 108 (90 BASE) MCG/ACT AERS 2 puffs four times a day PRN cough VENTOLIN HFA 108 (90 BASE) MCG/ACT AERS ALBUTEROL SULFATE Inactive LISINOPRIL 10 MG TABS 1/2-1 tab po every other day LISINOPRIL 10 MG TABS 624813 LISINOPRIL Inactive TUSSIONEX PENNKINETIC ER 10-8 MG/5ML LQCR 5ml po q12hr PRN Cough TUSSIONEX PENNKINETIC ER 10-8 MG/5ML LQCR HYDROCOD POLST- CHLORPHEN POLST Inactive PROMETHAZINE HCL 25 MG TABS 1 four times a day as needed for nausea/vomiting PROMETHAZINE HCL 25 MG TABS 012339 PROMETHAZINE HCL Inactive AZITHROMYCIN 250 MG TABS 2 po qd x 1 day, then 1 po qd x 4 days AZITHROMYCIN 250 MG TABS 1878392 AZITHROMYCIN Inactive AZITHROMYCIN 250 MG TABS 2 po qd x 1 day, then 1 po qd x 4 days AZITHROMYCIN 250 MG TABS 4043937 AZITHROMYCIN Inactive NYSTATIN-TRIAMCINOLONE 129483-7.1 UNIT/GM-% CREA Apply to area BID NYSTATIN-TRIAMCINOLONE 366939-5.1 UNIT/GM-% CREA 0896693 NYSTATIN-TRIAMCINOLONE Inactive AZITHROMYCIN 250 MG TABS 2 po qd x 1 day, then 1 po qd x 4 days AZITHROMYCIN 250 MG TABS 2133129 AZITHROMYCIN Inactive AZITHROMYCIN 250 MG TABS 2 po qd x 1 day, then 1 po qd x 4 days AZITHROMYCIN 250 MG TABS 1303382 AZITHROMYCIN Inactive Vital Signs Date Name Value Unit Range Description blood pressure, diastolic 69 mm[Hg] BP phan blood pressure, systolic 121 mm[Hg] BP sys pulse rate E&M 74 /min Heart rate temperature E&M 98.2 [degF] Body temperature weight E&M 230 [lb_av] Weight Measured blood pressure, diastolic 86 mm[Hg] BP phan blood pressure, systolic 132 mm[Hg] BP sys height E&M 71.5 [in_us] Bdy height pulse rate E&M 89 /min Heart rate temperature E&M 100.2 [degF] Body temperature weight E&M 226 [lb_av] Weight Measured blood pressure, diastolic 81 mm[Hg] BP phan blood pressure, systolic 146 mm[Hg] BP sys height E&M 71.5 [in_us] Bdy height pulse rate E&M 67 /min Heart rate temperature E&M 97.1 [degF] Body temperature weight E&M 224 [lb_av] Weight Measured Diagnostic Results Date Name Value Unit Range Description Append: Anticoagulation Management - Coagulation international normalized ratio (INR) 2 coagulation managed by DMG international normalized ratio (INR) Lab Report: Prostatic Specific Ag - Chemistry prostate specific antigen 0.04 ng/mL 0.00-4.00 Lab Report: Prothrombin Time - Coagulation prothrombin time (patient) 16.8 SECS s 11.4-12.8 international normalized ratio (INR) 1.9 1.0-3.5 prothrombin time (patient) 16.0 SECS s 11.1-13.4 international normalized ratio (INR) 1.7 1.0-3.5 prothrombin time (patient) 14.5 SECS s 11.1-13.4 international normalized ratio (INR) 1.4 1.0-3.5 prothrombin time (patient) 15.4 SECS s 11.1-13.4 international normalized ratio (INR) 1.6 1.0-3.5 prothrombin time (patient) 17.5 SECS s 11.4-12.8 international normalized ratio (INR) 2.0 1.0-3.5 Encounters Code Encounter Date Provider Facility CPT-40371 Level 3 Est. Patient 09:21:24 CDT Piotr Daley [facility] CPT-10884 Level 3 Est. Patient 09:21:11 CDT Piotr Daley [facility] CPT-99608 Level 3 Est. Patient 11:16:29 BACON STRINGER Piotr Daley [facility] CPT-74736 Level 3 Est. Patient 18:40:19 BACON STRINGER Piotr Daley [facility] CPT-34825 Level 3 Est. Patient 19:30:50 CDT Piotr Daley [facility] CPT-93091 Level 3 Est. Patient 22:06:44 CDT Katrina Rinaldi MD PhD [facility] CPT-98701 Level 3 Est. Patient 14:20:00 CDT Piotr Daley [facility] CPT-76645 Level 3 Est. Patient 14:15:22 BACON STRINGER Piotr Daley [facility] CPT-42284 Level 3 Est. Patient 20:19:57 BACON STRINGER Piotr Wilson [facility] CPT-27930 Level 3 Est. Patient 16:44:32 CDT Piotr Wilson [facility] CPT-79532 Level 3 Est. Patient 08:48:46 BACON STRINGER Piotr Wilson [facility] CPT-79711 Level 3 Est. Patient 21:01:21 CDT Piotr Wilson [facility] Procedures Code Procedure Name Date Entry Date Standard Description CPT-OV Office Visit 15:45:01 BACON STRINGER CPT-60086 Abd compl w upright 17:10:25 CDT
--- OUTSIDE RECORDS SUMMARY | 2018-07-18 11:10 | XMS REPORT | Clinical Summary ---
Author Author Admin, YONG Organization [facility] Address Unknown Phone Unavailable Allergies, [...] Right leg pain 729.5 Active Piotr Katie Dalye DO Pain in limb FLANK PAIN, RIGHT ICD-789.09 Inactive Katrina Rinaldi MD PhD HEALTH MAINTENANCE EXAM ICD-V70.0 Inactive Katrina Rinaldi MD PhD BRONCHITIS-ACUTE ICD-466.0 Inactive Piotr Daley DO SCREENING, COLON CANCER ICD-V76.51 Inactive Katrina Rinaldi MD PhD BRONCHITIS-ACUTE ICD-466.0 Inactive Piotr Daley DO Bronchitis-Acute ICD-466.0 Inactive Piotr aDley DO Medication List Medication Instructions Start Date Stop Date Generic Name NDC Status Provider Patient Instruction PROMETHAZINE HCL 25 MG TABS 1 four times a day as needed for nausea/vomiting PROMETHAZINE HCL 76459621405 No Longer Active Piotr Daley DO Active TUSSIONEX PENNKINETIC ER 10-8 MG/5ML LQCR 5ml po q12hr PRN Cough HYDROCOD POLST-CHLORPHEN POLST 89168430245 No Longer Active Piotr Daley DO Active AZITHROMYCIN 250 MG TABS 2 po qd x 1 day, then 1 po qd x 4 days AZITHROMYCIN 16212456225 No Longer Active Piotr Daley DO Active LOMOTIL 2.5-0.025 MG TAB 1 to 2 four times a day as needed for diarrhea 10/13 DIPHENOXYLATE-ATROPINE 86319833899 Active Piotr Daley DO Active PREDNISONE 20 MG TAB 1 tablet twice daily for 2 days, then 1 tablet once daily for 2 days PREDNISONE 57232120567 Active Piotr Daley DO Active AZITHROMYCIN 250 MG TABS 2 po qd x 1 day, then 1 po qd x 4 days AZITHROMYCIN 68869842491 No Longer Active Piotr Daley DO Active LISINOPRIL-HYDROCHLOROTHIAZIDE 10-12.5 MG TABS 1 tab by mouth daily LISINOPRIL-HYDROCHLOROTHIAZIDE 37457055546 Active Piotr Daley DO Active LISINOPRIL 10 MG TABS 1/2-1 tab po every other day LISINOPRIL 16673223906 No Longer Active Piotr Daley DO Active WARFARIN SODIUM 4 MG TABS 1 tab every evening WARFARIN SODIUM 57649372834 Active Piotr Daley DO Active VENTOLIN HFA 108 (90 BASE) MCG/ACT AERS 2 puffs four times a day PRN cough ALBUTEROL SULFATE 51541428993 No Longer Active Piotr Daley DO Active NYSTATIN-TRIAMCINOLONE 992044-1.1 UNIT/GM-% CREA Apply to area BID NYSTATIN-TRIAMCINOLONE 09407628701 No Longer Active Alena Chavria DIRECTOR OF GLOBAL TALENT Active PHISOHEX 3 % LIQD Use Directed HEXACHLOROPHENE 35430793301 No Longer Active Sandra [place] Active AZITHROMYCIN 250 MG TABS 2 po qd x 1 day, then 1 po qd x 4 days AZITHROMYCIN 60875478992 No Longer Active Katrina Rinaldi MD PhD Active AZITHROMYCIN 250 MG TABS 2 po qd x 1 day, then 1 po qd x 4 days AZITHROMYCIN 99127743524 No Longer Active Piotr Daley DO Active AZITHROMYCIN 500 MG SOLR 1 po q day AZITHROMYCIN 35895500628 No Longer Active Piotr Daley DO Active IBUPROFEN 800 MG TABS 1 tab every 8 hours as needed IBUPROFEN 18226298424 Active Ellen Feliciano RN Active NYSTATIN-TRIAMCINOLONE 136259-4.1 UNIT/GM-% CREA apply bid 08/19 NYSTATIN-TRIAMCINOLONE 31769496844 No Longer Active Piotr Daley DO Active IBUPROFEN 800 MG TABS 1 po q 8 hours prn pain sparinly IBUPROFEN 15034540178 No Longer Active Piotr Daley DO Active VITAMIN D3 5000 UNIT CAPS 1 po daily CHOLECALCIFEROL 61688554143 Active Piotr Daley DO Active IBUPROFEN 800 MG TABS 1 po q 8 hours prn pain sparinly IBUPROFEN 800 MG TABS 847651 IBUPROFEN Inactive NYSTATIN-TRIAMCINOLONE 557328-3.1 UNIT/GM-% CREA apply bid 08/19 NYSTATIN-TRIAMCINOLONE 625815-0.1 UNIT/GM-% CREA 1715430 NYSTATIN- TRIAMCINOLONE Inactive AZITHROMYCIN 500 MG SOLR 1 po q day AZITHROMYCIN 500 MG SOLR 691285 AZITHROMYCIN Inactive VENTOLIN HFA 108 (90 BASE) MCG/ACT AERS 2 puffs four times a day PRN cough VENTOLIN HFA 108 (90 BASE) MCG/ACT AERS ALBUTEROL SULFATE Inactive LISINOPRIL 10 MG TABS 1/2-1 tab po every other day LISINOPRIL 10 MG TABS 747065 LISINOPRIL Inactive TUSSIONEX PENNKINETIC ER 10-8 MG/5ML LQCR 5ml po q12hr PRN Cough TUSSIONEX PENNKINETIC ER 10-8 MG/5ML LQCR HYDROCOD POLST- CHLORPHEN POLST Inactive PROMETHAZINE HCL 25 MG TABS 1 four times a day as needed for nausea/vomiting PROMETHAZINE HCL 25 MG TABS 627374 PROMETHAZINE HCL Inactive AZITHROMYCIN 250 MG TABS 2 po qd x 1 day, then 1 po qd x 4 days AZITHROMYCIN 250 MG TABS 5245163 AZITHROMYCIN Inactive AZITHROMYCIN 250 MG TABS 2 po qd x 1 day, then 1 po qd x 4 days AZITHROMYCIN 250 MG TABS 5167295 AZITHROMYCIN Inactive NYSTATIN-TRIAMCINOLONE 455315-3.1 UNIT/GM-% CREA Apply to area BID NYSTATIN-TRIAMCINOLONE 992162-5.1 UNIT/GM-% CREA 2737340 NYSTATIN-TRIAMCINOLONE Inactive AZITHROMYCIN 250 MG TABS 2 po qd x 1 day, then 1 po qd x 4 days AZITHROMYCIN 250 MG TABS 6575638 AZITHROMYCIN Inactive AZITHROMYCIN 250 MG TABS 2 po qd x 1 day, then 1 po qd x 4 days AZITHROMYCIN 250 MG TABS 6100425 AZITHROMYCIN Inactive Vital Signs Date Name Value [...] Management - Coagulation international normalized ratio (INR) Lab Report: Prostatic [...] 11.1-13.4 international normalized ratio (INR) 2.4 1.0-3.5 Encounters Code Encounter Date Provider Facility CPT-94344 Level 3 Est. Patient 09:21:24 CDT Piotr Daley [facility] CPT-58186 Level 3 Est. Patient 09:21:11 CDT Piotr Daley [facility] CPT-05367 Level 3 Est. Patient 11:16:29 TARGET NETWORK ANALYST Piotr Daley [facility] CPT-03746 Level 3 Est. Patient 18:40:19 TARGET NETWORK ANALYST Piotr Daley [facility] CPT-48568 Level 3 Est. Patient 19:30:50 CDT Piotr Daley [facility] CPT-34355 Level 3 Est. Patient 22:06:44 CDT Katrina Rinaldi MD PhD [facility] CPT-43238 Level 3 Est. Patient 14:20:00 CDT Piotr Daley [facility] CPT-80557 Level 3 Est. Patient 14:15:22 TARGET NETWORK ANALYST Piotr Daely [facility] CPT-76651 Level 3 Est. Patient 20:19:57 TARGET NETWORK ANALYST Piotr Daley [facility] CPT-58865 Level 3 Est. Patient 16:44:32 CDT Piotr Daley [facility] CPT-15727 Level 3 Est. Patient 08:48:46 TARGET NETWORK ANALYST Piotr Daley [facility] CPT-44031 Level 3 Est. Patient 21:01:21 CDT Piotr Wilson [facility] Procedures Code Procedure Name Date Entry Date Standard Description CPT-OV Office Visit 15:45:01 TARGET NETWORK ANALYST CPT-40777 Abd compl w upright 17:10:25 CDT
--- OUTSIDE RECORDS SUMMARY | 2018-07-18 11:11 | XMS REPORT | Clinical Summary ---
Author Author Admin, YONG Organization [facility] Address Unknown Phone Unavailable Allergies, Adverse Reactions, [...] day as needed for nausea/vomiting PROMETHAZINE HCL 81808696497 No Longer Active Piotr Daley DO Active TUSSIONEX PENNKINETIC ER 10-8 MG/5ML LQCR 5ml po q12hr PRN Cough HYDROCOD POLST-CHLORPHEN POLST 74721980287 No Longer Active Piotr Daley DO Active AZITHROMYCIN 250 MG TABS 2 po qd x 1 day, then 1 po qd x 4 days AZITHROMYCIN 47501168891 No Longer Active Piotr Daley DO Active LOMOTIL 2.5-0.025 MG TAB 1 to 2 four times a day as needed for diarrhea 10/13 DIPHENOXYLATE-ATROPINE 34041040913 Active Piotr Daley DO Active PREDNISONE 20 MG TAB 1 tablet twice daily for 2 days, then 1 tablet once daily for 2 days PREDNISONE 96467697932 Active Piotr Daley DO Active AZITHROMYCIN 250 MG TABS 2 po qd x 1 day, then 1 po qd x 4 days AZITHROMYCIN 94436342356 No Longer Active Piotr Daley DO Active LISINOPRIL-HYDROCHLOROTHIAZIDE 10-12.5 MG TABS 1 tab by mouth daily LISINOPRIL-HYDROCHLOROTHIAZIDE 48518065508 Active Piotr Daley DO Active LISINOPRIL 10 MG TABS 1/2-1 tab po every other day LISINOPRIL 77171352110 No Longer Active Piotr Daley DO Active WARFARIN SODIUM 4 MG TABS 1 tab every evening WARFARIN SODIUM 00201584682 Active Piotr Daley DO Active VENTOLIN HFA 108 (90 BASE) MCG/ACT AERS 2 puffs four times a day PRN cough ALBUTEROL SULFATE 30829280244 No Longer Active Piotr Daley DO Active NYSTATIN-TRIAMCINOLONE 879866-4.1 UNIT/GM-% CREA Apply to area BID NYSTATIN-TRIAMCINOLONE 50633260554 No Longer Active Alena Cahvira NUT FORMER Active PHISOHEX 3 % LIQD Use Directed HEXACHLOROPHENE 14341231960 No Longer Active Sandra Malone Active AZITHROMYCIN 250 MG TABS 2 po qd x 1 day, then 1 po qd x 4 days AZITHROMYCIN 89770520019 No Longer Active Katrina Rinaldi MD PhD Active AZITHROMYCIN 250 MG TABS 2 po qd x 1 day, then 1 po qd x 4 days AZITHROMYCIN 58362934974 No Longer Active Piotr Daley DO Active AZITHROMYCIN 500 MG SOLR 1 po q day AZITHROMYCIN 71540050372 No Longer Active Piotr Daley DO Active IBUPROFEN 800 MG TABS 1 tab every 8 hours as needed IBUPROFEN 05051452608 Active Ellen Feliciano RN Active NYSTATIN-TRIAMCINOLONE 396619-1.1 UNIT/GM-% CREA apply bid 08/19 NYSTATIN-TRIAMCINOLONE 91530176669 No Longer Active Piotr Daley DO Active IBUPROFEN 800 MG TABS 1 po q 8 hours prn pain sparinly IBUPROFEN 69630387083 No Longer Active Piotr Daley DO Active VITAMIN D3 5000 UNIT CAPS 1 po daily CHOLECALCIFEROL 43324515024 Active Piotr Daley DO Active IBUPROFEN 800 MG TABS 1 po q 8 hours prn pain sparinly IBUPROFEN 800 MG TABS 182890 IBUPROFEN Inactive NYSTATIN-TRIAMCINOLONE 915907-1.1 UNIT/GM-% CREA apply bid 08/19 NYSTATIN-TRIAMCINOLONE 540077-8.1 UNIT/GM-% CREA 8446102 NYSTATIN- TRIAMCINOLONE Inactive AZITHROMYCIN 500 MG SOLR 1 po q day AZITHROMYCIN 500 MG SOLR 545436 AZITHROMYCIN Inactive VENTOLIN HFA 108 (90 BASE) MCG/ACT AERS 2 puffs four times a day PRN cough VENTOLIN HFA 108 (90 BASE) MCG/ACT AERS ALBUTEROL SULFATE Inactive LISINOPRIL 10 MG TABS 1/2-1 tab po every other day LISINOPRIL 10 MG TABS 701756 LISINOPRIL Inactive TUSSIONEX PENNKINETIC ER 10-8 MG/5ML LQCR 5ml po q12hr PRN Cough TUSSIONEX PENNKINETIC ER 10-8 MG/5ML LQCR HYDROCOD POLST- CHLORPHEN POLST Inactive PROMETHAZINE HCL 25 MG TABS 1 four times a day as needed for nausea/vomiting PROMETHAZINE HCL 25 MG TABS 922379 PROMETHAZINE HCL Inactive AZITHROMYCIN 250 MG TABS 2 po qd x 1 day, then 1 po qd x 4 days AZITHROMYCIN 250 MG TABS 4847639 AZITHROMYCIN Inactive AZITHROMYCIN 250 MG TABS 2 po qd x 1 day, then 1 po qd x 4 days AZITHROMYCIN 250 MG TABS 5283945 AZITHROMYCIN Inactive NYSTATIN-TRIAMCINOLONE 811209-8.1 UNIT/GM-% CREA Apply to area BID NYSTATIN-TRIAMCINOLONE 890891-1.1 UNIT/GM-% CREA 5627012 NYSTATIN-TRIAMCINOLONE Inactive AZITHROMYCIN 250 MG TABS 2 po qd x 1 day, then 1 po qd x 4 days AZITHROMYCIN 250 MG TABS 9546902 AZITHROMYCIN Inactive AZITHROMYCIN 250 MG TABS 2 po qd x 1 day, then 1 po qd x 4 days AZITHROMYCIN 250 MG TABS 9505910 AZITHROMYCIN Inactive Vital Signs Date Name Value [...] 1.0-3.5 Encounters Code Encounter Date Provider Facility CPT-99525 Level 3 Est. Patient 09:21:24 CDT Piotr Daley [facility] CPT-01258 Level 3 Est. Patient 09:21:11 CDT Piotr Daley [facility] CPT-50471 Level 3 Est. Patient 11:16:29 PRIMARY HEALTH CARE NURSE Piotr Daley [facility] CPT-31289 Level 3 Est. Patient 18:40:19 PRIMARY HEALTH CARE NURSE Piotr Daley [facility] CPT-71062 Level 3 Est. Patient 19:30:50 CDT Piotr Daley [facility] CPT-59439 Level 3 Est. Patient 22:06:44 CDT Katrina Rinaldi MD PhD [facility] CPT-60049 Level 3 Est. Patient 14:20:00 CDT Piotr Daley [facility] CPT-01356 Level 3 Est. Patient 14:15:22 PRIMARY HEALTH CARE NURSE Piotr Daley [facility] CPT-49071 Level 3 Est. Patient 20:19:57 PRIMARY HEALTH CARE NURSE Piotr [facility] CPT-78590 Level 3 Est. Patient 16:44:32 CDT Piotr [facility] CPT-01071 Level 3 Est. Patient 08:48:46 PRIMARY HEALTH CARE NURSE Piotr [facility] CPT-23605 Level 3 Est. Patient 21:01:21 CDT Piotr [facility] Procedures Code Procedure Name Date Entry Date Standard Description CPT-OV Office Visit 15:45:01 PRIMARY HEALTH CARE NURSE CPT-97796 Abd compl w upright 17:10:25 CDT
--- OUTSIDE RECORDS SUMMARY | 2018-07-18 11:12 | XMS REPORT | Clinical Summary ---
Author Author Admin, YONG Organization [facility] Address Unknown Phone Unavailable Allergies, Adverse Reactions, [...] day as needed for nausea/vomiting PROMETHAZINE HCL 32866119878 No Longer Active Piotr Daley DO Active TUSSIONEX PENNKINETIC ER 10-8 MG/5ML LQCR 5ml po q12hr PRN Cough HYDROCOD POLST-CHLORPHEN POLST 17568239778 No Longer Active Piotr Daley DO Active AZITHROMYCIN 250 MG TABS 2 po qd x 1 day, then 1 po qd x 4 days AZITHROMYCIN 62369439973 No Longer Active Piotr Daley DO Active LOMOTIL 2.5-0.025 MG TAB 1 to 2 four times a day as needed for diarrhea 10/13 DIPHENOXYLATE-ATROPINE 21292441149 Active Piotr Daley DO Active PREDNISONE 20 MG TAB 1 tablet twice daily for 2 days, then 1 tablet once daily for 2 days PREDNISONE 83403897530 Active Piotr Daley DO Active AZITHROMYCIN 250 MG TABS 2 po qd x 1 day, then 1 po qd x 4 days AZITHROMYCIN 89611718228 No Longer Active Piotr Daley DO Active LISINOPRIL-HYDROCHLOROTHIAZIDE 10-12.5 MG TABS 1 tab by mouth daily LISINOPRIL-HYDROCHLOROTHIAZIDE 31809386906 Active Piotr Daley DO Active LISINOPRIL 10 MG TABS 1/2-1 tab po every other day LISINOPRIL 82875596938 No Longer Active Piotr Daley DO Active WARFARIN SODIUM 4 MG TABS 1 tab every evening WARFARIN SODIUM 93949294015 Active Piotr Daley DO Active VENTOLIN HFA 108 (90 BASE) MCG/ACT AERS 2 puffs four times a day PRN cough ALBUTEROL SULFATE 05300512937 No Longer Active Piotr Daley DO Active NYSTATIN-TRIAMCINOLONE 865874-3.1 UNIT/GM-% CREA Apply to area BID NYSTATIN-TRIAMCINOLONE 20754008545 No Longer Active Alena Chavira STRIPPER AND TAPER Active PHISOHEX 3 % LIQD Use Directed HEXACHLOROPHENE 78281111109 No Longer Active Sandra Almyra Active AZITHROMYCIN 250 MG TABS 2 po qd x 1 day, then 1 po qd x 4 days AZITHROMYCIN 57262885035 No Longer Active Katrina Rinaldi MD PhD Active AZITHROMYCIN 250 MG TABS 2 po qd x 1 day, then 1 po qd x 4 days AZITHROMYCIN 06111580663 No Longer Active Piotr Daley DO Active AZITHROMYCIN 500 MG SOLR 1 po q day AZITHROMYCIN 10542087610 No Longer Active Piotr Daley DO Active IBUPROFEN 800 MG TABS 1 tab every 8 hours as needed IBUPROFEN 82867799170 Active Ellen Feliciano RN Active NYSTATIN-TRIAMCINOLONE 820305-2.1 UNIT/GM-% CREA apply bid 08/19 NYSTATIN-TRIAMCINOLONE 82740761070 No Longer Active Piotr Daley DO Active IBUPROFEN 800 MG TABS 1 po q 8 hours prn pain sparinly IBUPROFEN 44099464225 No Longer Active Piotr Daley DO Active VITAMIN D3 5000 UNIT CAPS 1 po daily CHOLECALCIFEROL 47137662998 Active Piotr Daley DO Active IBUPROFEN 800 MG TABS 1 po q 8 hours prn pain sparinly IBUPROFEN 800 MG TABS 389223 IBUPROFEN Inactive NYSTATIN-TRIAMCINOLONE 748371-2.1 UNIT/GM-% CREA apply bid 08/19 NYSTATIN-TRIAMCINOLONE 003546-0.1 UNIT/GM-% CREA 7269840 NYSTATIN- TRIAMCINOLONE Inactive AZITHROMYCIN 500 MG SOLR 1 po q day AZITHROMYCIN 500 MG SOLR 182636 AZITHROMYCIN Inactive VENTOLIN HFA 108 (90 BASE) MCG/ACT AERS 2 puffs four times a day PRN cough VENTOLIN HFA 108 (90 BASE) MCG/ACT AERS ALBUTEROL SULFATE Inactive LISINOPRIL 10 MG TABS 1/2-1 tab po every other day LISINOPRIL 10 MG TABS 071491 LISINOPRIL Inactive TUSSIONEX PENNKINETIC ER 10-8 MG/5ML LQCR 5ml po q12hr PRN Cough TUSSIONEX PENNKINETIC ER 10-8 MG/5ML LQCR HYDROCOD POLST- CHLORPHEN POLST Inactive PROMETHAZINE HCL 25 MG TABS 1 four times a day as needed for nausea/vomiting PROMETHAZINE HCL 25 MG TABS 198477 PROMETHAZINE HCL Inactive AZITHROMYCIN 250 MG TABS 2 po qd x 1 day, then 1 po qd x 4 days AZITHROMYCIN 250 MG TABS 3231770 AZITHROMYCIN Inactive AZITHROMYCIN 250 MG TABS 2 po qd x 1 day, then 1 po qd x 4 days AZITHROMYCIN 250 MG TABS 7124622 AZITHROMYCIN Inactive NYSTATIN-TRIAMCINOLONE 171948-8.1 UNIT/GM-% CREA Apply to area BID NYSTATIN-TRIAMCINOLONE 460045-9.1 UNIT/GM-% CREA 5304090 NYSTATIN-TRIAMCINOLONE Inactive AZITHROMYCIN 250 MG TABS 2 po qd x 1 day, then 1 po qd x 4 days AZITHROMYCIN 250 MG TABS 2254210 AZITHROMYCIN Inactive AZITHROMYCIN 250 MG TABS 2 po qd x 1 day, then 1 po qd x 4 days AZITHROMYCIN 250 MG TABS 1826992 AZITHROMYCIN Inactive Vital Signs Date Name Value [...] 1.0-3.5 Encounters Code Encounter Date Provider Facility CPT-76873 Level 3 Est. Patient 09:21:[address] [facility] CPT-05633 Level 3 Est. Patient 09:21:[address] [facility] CPT-47334 Level 3 Est. Patient 11:16:29 NATURAL RESOURCE TECHNICIAN Piotr Daley [facility] CPT-84433 Level 3 Est. Patient 18:40:19 NATURAL RESOURCE TECHNICIAN Piotr Daley [facility] CPT-05793 Level 3 Est. Patient 19:30:50 CDT Piotr Daley [facility] CPT-82336 Level 3 Est. Patient 22:06:44 CDT Katrina Rinaldi MD PhD [facility] CPT-24774 Level 3 Est. Patient 14:20:00 CDT Piotr Daley [facility] CPT-65550 Level 3 Est. Patient 14:15:22 NATURAL RESOURCE TECHNICIAN Piotr Daley [facility] CPT-43636 Level 3 Est. Patient 20:19:57 NATURAL RESOURCE TECHNICIAN Piotr [facility] CPT-51014 Level 3 Est. Patient 16:44:32 CDT Piotr Wilson [facility] CPT-40801 Level 3 Est. Patient 08:48:46 NATURAL RESOURCE TECHNICIAN Piotr Wilson [facility] CPT-41924 Level 3 Est. Patient 21:01:21 CDT Piotr Wilson [facility] Procedures Code Procedure Name Date Entry Date Standard Description CPT-OV Office Visit 15:45:01 NATURAL RESOURCE TECHNICIAN CPT-88463 Abd compl w upright 17:10:25 CDT
--- OUTSIDE RECORDS SUMMARY | 2018-07-18 11:12 | XMS REPORT | Clinical Summary ---
Author Author Admin, YONG Organization [facility] Address Unknown Phone Unavailable Allergies, Adverse [...] BRONCHITIS-ACUTE ICD-466.0 Inactive Piotr Katie Daley DO Bronchitis-Acute ICD-466.0 Inactive Piotr Daley DO Medication List Medication Instructions Start Date Stop Date Generic Name NDC Status Provider Patient Instruction WARFARIN SODIUM 4 MG TABS 1 tab every evening WARFARIN SODIUM 40813249051 No Longer Active Piotr Daley DO Active WARFARIN SODIUM 5 MG TABS 1 tablet daily except for 1.5 tablet saturday, sat and sat. WARFARIN SODIUM 79224326984 Active Piotr Daley DO Active PREDNISONE 20 MG TAB 1 tablet twice daily for 2 days, then 1 tablet once daily for 2 days PREDNISONE 18463437070 No Longer Active Piotr Daley DO Active PROMETHAZINE HCL 25 MG TABS 1 four times a day as needed for nausea/vomiting PROMETHAZINE HCL 42484252948 No Longer Active Piotr Daley DO Active TUSSIONEX PENNKINETIC ER 10-8 MG/5ML LQCR 5ml po q12hr PRN Cough HYDROCOD POLST-CHLORPHEN POLST 75212001605 No Longer Active Piotr Daley DO Active AZITHROMYCIN 250 MG TABS 2 po qd x 1 day, then 1 po qd x 4 days AZITHROMYCIN 92605356798 No Longer Active Piotr Daley DO Active LOMOTIL 2.5-0.025 MG TAB 1 to 2 four times a day as needed for diarrhea 10/13 DIPHENOXYLATE-ATROPINE 32206516245 Active Piotr Daley DO Active AZITHROMYCIN 250 MG TABS 2 po qd x 1 day, then 1 po qd x 4 days AZITHROMYCIN 61967556709 No Longer Active Piotr Daley DO Active LISINOPRIL-HYDROCHLOROTHIAZIDE 10-12.5 MG TABS 1 tab by mouth daily LISINOPRIL-HYDROCHLOROTHIAZIDE 75774962954 Active Piotr Daley DO Active LISINOPRIL 10 MG TABS 1/2-1 tab po every other day LISINOPRIL 76912506252 No Longer Active Piotr Daley DO Active VENTOLIN HFA 108 (90 BASE) MCG/ACT AERS 2 puffs four times a day PRN cough ALBUTEROL SULFATE 43135932724 No Longer Active Piotr Daley DO Active NYSTATIN-TRIAMCINOLONE 611452-6.1 UNIT/GM-% CREA Apply to area BID NYSTATIN-TRIAMCINOLONE 90351550610 No Longer Active Alena Jarvis Fan SANITATION TECHNICIAN Active PHISOHEX 3 % LIQD Use Directed HEXACHLOROPHENE 93888944221 No Longer Active Sandra Lancaster Active AZITHROMYCIN 250 MG TABS 2 po qd x 1 day, then 1 po qd x 4 days AZITHROMYCIN 20208657357 No Longer Active Katrina Rinaldi MD PhD Active AZITHROMYCIN 250 MG TABS 2 po qd x 1 day, then 1 po qd x 4 days AZITHROMYCIN 70471886424 No Longer Active Piotr Daley DO Active AZITHROMYCIN 500 MG SOLR 1 po q day AZITHROMYCIN 53103021323 No Longer Active Piotr Daley DO Active IBUPROFEN 800 MG TABS 1 tab every 8 hours as needed IBUPROFEN 85161505179 Active Ellen Feliciano RN Active NYSTATIN-TRIAMCINOLONE 658717-7.1 UNIT/GM-% CREA apply bid 08/19 NYSTATIN-TRIAMCINOLONE 38574897771 No Longer Active Piotr Daley DO Active IBUPROFEN 800 MG TABS 1 po q 8 hours prn pain sparinly IBUPROFEN 70270534683 No Longer Active Piotr Daley DO Active VITAMIN D3 5000 UNIT CAPS 1 po daily CHOLECALCIFEROL 72742762422 Active Piotr Daley DO Active IBUPROFEN 800 MG TABS 1 po q 8 hours prn pain sparinly IBUPROFEN 800 MG TABS 419659 IBUPROFEN Inactive NYSTATIN-TRIAMCINOLONE 758140-3.1 UNIT/GM-% CREA apply bid 08/19 NYSTATIN-TRIAMCINOLONE 008681-0.1 UNIT/GM-% CREA 8735592 NYSTATIN- TRIAMCINOLONE Inactive AZITHROMYCIN 500 MG SOLR 1 po q day AZITHROMYCIN 500 MG SOLR 542687 AZITHROMYCIN Inactive VENTOLIN HFA 108 (90 BASE) MCG/ACT AERS 2 puffs four times a day PRN cough VENTOLIN HFA 108 (90 BASE) MCG/ACT AERS ALBUTEROL SULFATE Inactive LISINOPRIL 10 MG TABS 1/2-1 tab po every other day LISINOPRIL 10 MG TABS 554143 LISINOPRIL Inactive TUSSIONEX PENNKINETIC ER 10-8 MG/5ML LQCR 5ml po q12hr PRN Cough TUSSIONEX PENNKINETIC ER 10-8 MG/5ML LQCR HYDROCOD POLST- CHLORPHEN POLST Inactive PROMETHAZINE HCL 25 MG TABS 1 four times a day as needed for nausea/vomiting PROMETHAZINE HCL 25 MG TABS 198254 PROMETHAZINE HCL Inactive PREDNISONE 20 MG TAB 1 tablet twice daily for 2 days, then 1 tablet once daily for 2 days PREDNISONE 20 MG TAB 737252 PREDNISONE Inactive WARFARIN SODIUM 4 MG TABS 1 tab every evening WARFARIN SODIUM 4 MG TABS 629288 WARFARIN SODIUM Inactive AZITHROMYCIN 250 MG TABS 2 po qd x 1 day, then 1 po qd x 4 days AZITHROMYCIN 250 MG TABS 0941242 AZITHROMYCIN Inactive AZITHROMYCIN 250 MG TABS 2 po qd x 1 day, then 1 po qd x 4 days AZITHROMYCIN 250 MG TABS 8788485 AZITHROMYCIN Inactive NYSTATIN-TRIAMCINOLONE 653383-1.1 UNIT/GM-% CREA Apply to area BID NYSTATIN-TRIAMCINOLONE 164380-9.1 UNIT/GM-% CREA 4132236 NYSTATIN-TRIAMCINOLONE Inactive AZITHROMYCIN 250 MG TABS 2 po qd x 1 day, then 1 po qd x 4 days AZITHROMYCIN 250 MG TABS 6500888 AZITHROMYCIN Inactive AZITHROMYCIN 250 MG TABS 2 po qd x 1 day, then 1 po qd x 4 days AZITHROMYCIN 250 MG TABS 3444360 AZITHROMYCIN Inactive Vital Signs Date Name Value [...] 0.08 ng/mL 0.00-4.00 sodium, serum 142 mmol/L 835-518 0338/12/01 potassium, serum 4.7 mmol/L 3.5-5.2 chloride, serum [...] 142-424 Encounters Code Encounter Date Provider Facility CPT-32269 Level 3 Est. Patient 12:41:58 SALES REPRESENTATIVE CASH REGISTERS Piotr Daley [facility] CPT-48712 Level 3 Est. Patient 09:21:24 CDT Piotr Daley [facility] CPT-35932 Level 3 Est. Patient 09:21:11 CDT Piotr Wilson [facility] CPT-72625 Level 3 Est. Patient 11:16:29 SALES REPRESENTATIVE CASH REGISTERS Piotr Daley [facility] CPT-71272 Level 3 Est. Patient 18:40:19 SALES REPRESENTATIVE CASH REGISTERS Piotr Daley [facility] CPT-01957 Level 3 Est. Patient 19:30:50 CDT Piotr Daley [facility] CPT-19127 Level 3 Est. Patient 22:06:44 CDT Katrina Rinaldi MD [facility] CPT-21205 Level 3 Est. Patient 14:20:00 CDT Piotr Daley [facility] CPT-68816 Level 3 Est. 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 Patient 16:44:32 CDT Piotr Daley [facility] CPT-85305 Level 3 Est. 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 Patient 21:01:21 CDT Piotr Daley [facility] Procedures Code Procedure Name Date Entry Date Standard Description CPT-OV Office Visit 15:45:01 SALES REPRESENTATIVE CASH REGISTERS CPT-24273 Abd compl w upright 17:10:25 CDT
--- OUTSIDE RECORDS SUMMARY | 2018-07-18 11:13 | XMS REPORT | Clinical Summary ---
Author Author Admin, YONG Organization [facility] Address Unknown Phone Unavailable Allergies, [...] TABS 1 tab every evening WARFARIN SODIUM 34855806344 No Longer Active Piotr Daley DO Active WARFARIN SODIUM 5 MG TABS 1 tablet daily except for 1.5 tablet saturday, sat and sat. WARFARIN SODIUM 02188899476 Active Piotr Daley DO Active PREDNISONE 20 MG TAB 1 tablet twice daily for 2 days, then 1 tablet once daily for 2 days PREDNISONE 63707385692 No Longer Active Piotr Daley DO Active PROMETHAZINE HCL 25 MG TABS 1 four times a day as needed for nausea/vomiting PROMETHAZINE HCL 54437639515 No Longer Active Piotr Daley DO Active TUSSIONEX PENNKINETIC ER 10-8 MG/5ML LQCR 5ml po q12hr PRN Cough HYDROCOD POLST-CHLORPHEN POLST 84877590012 No Longer Active Piotr Daley DO Active AZITHROMYCIN 250 MG TABS 2 po qd x 1 day, then 1 po qd x 4 days AZITHROMYCIN 12570839970 No Longer Active Piotr Daley DO Active LOMOTIL 2.5-0.025 MG TAB 1 to 2 four times a day as needed for diarrhea 10/13 DIPHENOXYLATE-ATROPINE 84914040259 Active Piotr Daley DO Active AZITHROMYCIN 250 MG TABS 2 po qd x 1 day, then 1 po qd x 4 days AZITHROMYCIN 12198677349 No Longer Active Piotr Daley DO Active LISINOPRIL-HYDROCHLOROTHIAZIDE 10-12.5 MG TABS 1 tab by mouth daily LISINOPRIL-HYDROCHLOROTHIAZIDE 72652583248 Active Piotr Daley DO Active LISINOPRIL 10 MG TABS 1/2-1 tab po every other day LISINOPRIL 70943313986 No Longer Active Piotr Daley DO Active VENTOLIN HFA 108 (90 BASE) MCG/ACT AERS 2 puffs four times a day PRN cough ALBUTEROL SULFATE 90386807689 No Longer Active Piotr Daley DO Active NYSTATIN-TRIAMCINOLONE 702623-2.1 UNIT/GM-% CREA Apply to area BID NYSTATIN-TRIAMCINOLONE 56431398017 No Longer Active Alena Jarvis Fan ASSISTANT TECHNICIAN Active PHISOHEX 3 % LIQD Use Directed HEXACHLOROPHENE 82796304265 No Longer Active Sandra Houston Active AZITHROMYCIN 250 MG TABS 2 po qd x 1 day, then 1 po qd x 4 days AZITHROMYCIN 94107125523 No Longer Active Katrina Rinaldi MD PhD Active AZITHROMYCIN 250 MG TABS 2 po qd x 1 day, then 1 po qd x 4 days AZITHROMYCIN 78427276681 No Longer Active Piotr Daley DO Active AZITHROMYCIN 500 MG SOLR 1 po q day AZITHROMYCIN 14278190200 No Longer Active Piotr Daley DO Active IBUPROFEN 800 MG TABS 1 tab every 8 hours as needed IBUPROFEN 54075640997 Active Ellen Feliciano RN Active NYSTATIN-TRIAMCINOLONE 961502-5.1 UNIT/GM-% CREA apply bid 08/19 NYSTATIN-TRIAMCINOLONE 13523911851 No Longer Active Piotr Daley DO Active IBUPROFEN 800 MG TABS 1 po q 8 hours prn pain sparinly IBUPROFEN 73436339776 No Longer Active Piotr Daley DO Active VITAMIN D3 5000 UNIT CAPS 1 po daily CHOLECALCIFEROL 87539715136 Active Piotr Daley DO Active IBUPROFEN 800 MG TABS 1 po q 8 hours prn pain sparinly IBUPROFEN 800 MG TABS 070494 IBUPROFEN Inactive NYSTATIN-TRIAMCINOLONE 985339-7.1 UNIT/GM-% CREA apply bid 08/19 NYSTATIN-TRIAMCINOLONE 026053-0.1 UNIT/GM-% CREA 1757342 NYSTATIN- TRIAMCINOLONE Inactive AZITHROMYCIN 500 MG SOLR 1 po q day AZITHROMYCIN 500 MG SOLR 953055 AZITHROMYCIN Inactive VENTOLIN HFA 108 (90 BASE) MCG/ACT AERS 2 puffs four times a day PRN cough VENTOLIN HFA 108 (90 BASE) MCG/ACT AERS ALBUTEROL SULFATE Inactive LISINOPRIL 10 MG TABS 1/2-1 tab po every other day LISINOPRIL 10 MG TABS 084184 LISINOPRIL Inactive TUSSIONEX PENNKINETIC ER 10-8 MG/5ML LQCR 5ml po q12hr PRN Cough TUSSIONEX PENNKINETIC ER 10-8 MG/5ML LQCR HYDROCOD POLST- CHLORPHEN POLST Inactive PROMETHAZINE HCL 25 MG TABS 1 four times a day as needed for nausea/vomiting PROMETHAZINE HCL 25 MG TABS 420545 PROMETHAZINE HCL Inactive PREDNISONE 20 MG TAB 1 tablet twice daily for 2 days, then 1 tablet once daily for 2 days PREDNISONE 20 MG TAB 570633 PREDNISONE Inactive WARFARIN SODIUM 4 MG TABS 1 tab every evening WARFARIN SODIUM 4 MG TABS 582973 WARFARIN SODIUM Inactive AZITHROMYCIN 250 MG TABS 2 po qd x 1 day, then 1 po qd x 4 days AZITHROMYCIN 250 MG TABS 2106876 AZITHROMYCIN Inactive AZITHROMYCIN 250 MG TABS 2 po qd x 1 day, then 1 po qd x 4 days AZITHROMYCIN 250 MG TABS 1307409 AZITHROMYCIN Inactive NYSTATIN-TRIAMCINOLONE 779345-0.1 UNIT/GM-% CREA Apply to area BID NYSTATIN-TRIAMCINOLONE 519174-9.1 UNIT/GM-% CREA 8209151 NYSTATIN-TRIAMCINOLONE Inactive AZITHROMYCIN 250 MG TABS 2 po qd x 1 day, then 1 po qd x 4 days AZITHROMYCIN 250 MG TABS 9340829 AZITHROMYCIN Inactive AZITHROMYCIN 250 MG TABS 2 po qd x 1 day, then 1 po qd x 4 days AZITHROMYCIN 250 MG TABS 2388802 AZITHROMYCIN Inactive Vital Signs Date Name Value [...] ... - Chemistry sodium, serum 142 mmol/L 067-400 8692/12/01 potassium, serum 4.7 mmol/L 3.5-5.2 chloride, serum [...] 142-424 Encounters Code Encounter Date Provider Facility CPT-59581 Level 3 Est. Patient 12:41:58 FIRING PIN GAUGER Piotr Daley [facility] CPT-30899 Level 3 Est. Patient 09:21:24 CDT Piotr Daley [facility] CPT-75741 Level 3 Est. Patient 09:21:11 CDT Piotr Daley [facility] CPT-75228 Level 3 Est. Patient 11:16:29 FIRING PIN GAUGER Piotr Daley [facility] CPT-09786 Level 3 Est. Patient 18:40:19 FIRING PIN GAUGER Piotr W [facility] CPT-62250 Level 3 Est. Patient 19:30:50 CDT Piotr Daley [facility] CPT-25287 Level 3 Est. Patient 22:06:44 CDT Katrina Rinaldi MD [facility] CPT-11746 Level 3 Est. Patient 14:20:00 CDT Piotr Daley [facility] CPT-81742 Level 3 Est. Patient 14:15:22 FIRING PIN GAUGER Piotr Daley [facility] CPT-10079 Level 3 Est. Patient 20:19:57 FIRING PIN GAUGER Piotr Daley [facility] CPT-18073 Level 3 Est. Patient 16:44:32 CDT Piotr Daley [facility] CPT-94902 Level 3 Est. Patient 08:48:46 FIRING PIN GAUGER Piotr Daley [facility] CPT-92420 Level 3 Est. Patient 21:01:21 CDT P[facility]r [facility] Procedures Code Procedure Name Date Entry Date Standard Description CPT-OV Office Visit 15:45:01 FIRING PIN GAUGER CPT-52398 Abd compl w upright 17:10:25 CDT
--- OUTSIDE RECORDS SUMMARY | 2018-07-18 11:14 | XMS REPORT | Clinical Summary ---
Author Author Admin, YONG Organization [facility] Address Unknown Phone Unavailable Allergies, Adverse [...] TABS 1 tab every evening WARFARIN SODIUM 24230335247 No Longer Active Piotr Daley DO Active WARFARIN SODIUM 5 MG TABS 1 tablet daily except for 1.5 tablet saturday, sat and sat. WARFARIN SODIUM 22253507834 Active Piotr Daley DO Active PREDNISONE 20 MG TAB 1 tablet twice daily for 2 days, then 1 tablet once daily for 2 days PREDNISONE 20560806197 No Longer Active Piotr Daley DO Active PROMETHAZINE HCL 25 MG TABS 1 four times a day as needed for nausea/vomiting PROMETHAZINE HCL 02296240680 No Longer Active Piotr Daley DO Active TUSSIONEX PENNKINETIC ER 10-8 MG/5ML LQCR 5ml po q12hr PRN Cough HYDROCOD POLST-CHLORPHEN POLST 45197148834 No Longer Active Piotr Daley DO Active AZITHROMYCIN 250 MG TABS 2 po qd x 1 day, then 1 po qd x 4 days AZITHROMYCIN 85154890605 No Longer Active Piotr Daley DO Active LOMOTIL 2.5-0.025 MG TAB 1 to 2 four times a day as needed for diarrhea 10/13 DIPHENOXYLATE-ATROPINE 06563354859 Active Piotr Daley DO Active AZITHROMYCIN 250 MG TABS 2 po qd x 1 day, then 1 po qd x 4 days AZITHROMYCIN 12127921887 No Longer Active Piotr Daley DO Active LISINOPRIL-HYDROCHLOROTHIAZIDE 10-12.5 MG TABS 1 tab by mouth daily LISINOPRIL-HYDROCHLOROTHIAZIDE 02899897627 Active Piotr Daley DO Active LISINOPRIL 10 MG TABS 1/2-1 tab po every other day LISINOPRIL 89257173120 No Longer Active Piotr Daley DO Active VENTOLIN HFA 108 (90 BASE) MCG/ACT AERS 2 puffs four times a day PRN cough ALBUTEROL SULFATE 86243322866 No Longer Active Piotr Daely DO Active NYSTATIN-TRIAMCINOLONE 482975-1.1 UNIT/GM-% CREA Apply to area BID NYSTATIN-TRIAMCINOLONE 96624200668 No Longer Active Alena Jarvis Fan WELDER HELPER Active PHISOHEX 3 % LIQD Use Directed HEXACHLOROPHENE 48532020386 No Longer Active Sandra [place] Active AZITHROMYCIN 250 MG TABS 2 po qd x 1 day, then 1 po qd x 4 days AZITHROMYCIN 16879759606 No Longer Active Katrina Rinaldi MD PhD Active AZITHROMYCIN 250 MG TABS 2 po qd x 1 day, then 1 po qd x 4 days AZITHROMYCIN 64530988360 No Longer Active Piotr Daley DO Active AZITHROMYCIN 500 MG SOLR 1 po q day AZITHROMYCIN 81050313644 No Longer Active Piotr Daley DO Active IBUPROFEN 800 MG TABS 1 tab every 8 hours as needed IBUPROFEN 22881803825 Active Ellen Feliciano RN Active NYSTATIN-TRIAMCINOLONE 637746-7.1 UNIT/GM-% CREA apply bid 08/19 NYSTATIN-TRIAMCINOLONE 95419159998 No Longer Active Piotr Daley DO Active IBUPROFEN 800 MG TABS 1 po q 8 hours prn pain sparinly IBUPROFEN 62288779940 No Longer Active Piotr Daley DO Active VITAMIN D3 5000 UNIT CAPS 1 po daily CHOLECALCIFEROL 00990673898 Active Piotr Daley DO Active IBUPROFEN 800 MG TABS 1 po q 8 hours prn pain sparinly IBUPROFEN 800 MG TABS 493535 IBUPROFEN Inactive NYSTATIN-TRIAMCINOLONE 141900-4.1 UNIT/GM-% CREA apply bid 08/19 NYSTATIN-TRIAMCINOLONE 186297-9.1 UNIT/GM-% CREA 6485705 NYSTATIN- TRIAMCINOLONE Inactive AZITHROMYCIN 500 MG SOLR 1 po q day AZITHROMYCIN 500 MG SOLR 569473 AZITHROMYCIN Inactive VENTOLIN HFA 108 (90 BASE) MCG/ACT AERS 2 puffs four times a day PRN cough VENTOLIN HFA 108 (90 BASE) MCG/ACT AERS ALBUTEROL SULFATE Inactive LISINOPRIL 10 MG TABS 1/2-1 tab po every other day LISINOPRIL 10 MG TABS 199817 LISINOPRIL Inactive TUSSIONEX PENNKINETIC ER 10-8 MG/5ML LQCR 5ml po q12hr PRN Cough TUSSIONEX PENNKINETIC ER 10-8 MG/5ML LQCR HYDROCOD POLST- CHLORPHEN POLST Inactive PROMETHAZINE HCL 25 MG TABS 1 four times a day as needed for nausea/vomiting PROMETHAZINE HCL 25 MG TABS 059501 PROMETHAZINE HCL Inactive PREDNISONE 20 MG TAB 1 tablet twice daily for 2 days, then 1 tablet once daily for 2 days PREDNISONE 20 MG TAB 900365 PREDNISONE Inactive WARFARIN SODIUM 4 MG TABS 1 tab every evening WARFARIN SODIUM 4 MG TABS 195802 WARFARIN SODIUM Inactive AZITHROMYCIN 250 MG TABS 2 po qd x 1 day, then 1 po qd x 4 days AZITHROMYCIN 250 MG TABS 5664058 AZITHROMYCIN Inactive AZITHROMYCIN 250 MG TABS 2 po qd x 1 day, then 1 po qd x 4 days AZITHROMYCIN 250 MG TABS 4209716 AZITHROMYCIN Inactive NYSTATIN-TRIAMCINOLONE 244355-3.1 UNIT/GM-% CREA Apply to area BID NYSTATIN-TRIAMCINOLONE 183846-1.1 UNIT/GM-% CREA 5578798 NYSTATIN-TRIAMCINOLONE Inactive AZITHROMYCIN 250 MG TABS 2 po qd x 1 day, then 1 po qd x 4 days AZITHROMYCIN 250 MG TABS 6505924 AZITHROMYCIN Inactive AZITHROMYCIN 250 MG TABS 2 po qd x 1 day, then 1 po qd x 4 days AZITHROMYCIN 250 MG TABS 3089372 AZITHROMYCIN Inactive Vital Signs Date Name Value [...] 0.08 ng/mL 0.00-4.00 sodium, serum 142 mmol/L 972-970 3247/12/01 potassium, serum 4.7 mmol/L 3.5-5.2 chloride, serum [...] 142-424 Encounters Code Encounter Date Provider Facility CPT-75019 Level 3 Est. Patient 12:41:58 SENIOR BIOINFORMATICS SCIENTIST Piotr Daley [facility] CPT-52016 Level 3 Est. Patient 09:21:24 CDT Piotr Wilson [facility] CPT-11717 Level 3 Est. Patient 09:21:11 CDT Piotr Wilson [facility] CPT-82869 Level 3 Est. Patient 11:16:29 SENIOR BIOINFORMATICS SCIENTIST Piotr Daley [facility] CPT-23881 Level 3 Est. Patient 18:40:19 SENIOR BIOINFORMATICS SCIENTIST Piotr Daley [facility] CPT-99945 Level 3 Est. Patient 19:30:50 CDT Piotr Daley [facility] CPT-89141 Level 3 Est. Patient 22:06:44 CDT Katrina Rinaldi MD [facility] CPT-21534 Level 3 Est. Patient 14:20:00 CDT Piotr Daley [facility] CPT-24118 Level 3 Est. Patient 14:15:22 SENIOR BIOINFORMATICS SCIENTIST Piotr Daley [facility] CPT-65457 Level 3 Est. Patient 20:19:57 SENIOR BIOINFORMATICS SCIENTIST Piotr Daley DO [facility] CPT-36241 Level 3 Est. Patient 16:44:32 CDT Piotr Daley [facility] CPT-01040 Level 3 Est. Patient 08:48:46 SENIOR BIOINFORMATICS SCIENTIST Piotr Daley [facility] CPT-14077 Level 3 Est. Patient 21:01:21 CDT Piotr Daley [facility] Procedures Code Procedure Name Date Entry Date Standard Description CPT-OV Office Visit 15:45:01 SENIOR BIOINFORMATICS SCIENTIST CPT-11081 Abd compl w upright 17:10:25 CDT
--- OUTSIDE RECORDS SUMMARY | 2018-07-18 11:14 | XMS REPORT | Clinical Summary ---
[...] TABS 1 tab every evening WARFARIN SODIUM 69531328272 No Longer Active Piotr Daley DO Active WARFARIN SODIUM 5 MG TABS 1 tablet daily except for 1.5 tablet saturday, sat and sat. WARFARIN SODIUM 64047314896 Active Piotr Daley DO Active PREDNISONE 20 MG TAB 1 tablet twice daily for 2 days, then 1 tablet once daily for 2 days PREDNISONE 18870604129 No Longer Active Piotr Daley DO Active PROMETHAZINE HCL 25 MG TABS 1 four times a day as needed for nausea/vomiting PROMETHAZINE HCL 33995176439 No Longer Active Piotr Daley DO Active TUSSIONEX PENNKINETIC ER 10-8 MG/5ML LQCR 5ml po q12hr PRN Cough HYDROCOD POLST-CHLORPHEN POLST 24168666142 No Longer Active Piotr Daley DO Active AZITHROMYCIN 250 MG TABS 2 po qd x 1 day, then 1 po qd x 4 days AZITHROMYCIN 60056864410 No Longer Active Piotr Daley DO Active LOMOTIL 2.5-0.025 MG TAB 1 to 2 four times a day as needed for diarrhea 10/13 DIPHENOXYLATE-ATROPINE 78453575797 Active Piotr Daley DO Active AZITHROMYCIN 250 MG TABS 2 po qd x 1 day, then 1 po qd x 4 days AZITHROMYCIN 21637638063 No Longer Active Piotr Daley DO Active LISINOPRIL-HYDROCHLOROTHIAZIDE 10-12.5 MG TABS 1 tab by mouth daily LISINOPRIL-HYDROCHLOROTHIAZIDE 36672856903 Active Piotr Daley DO Active LISINOPRIL 10 MG TABS 1/2-1 tab po every other day LISINOPRIL 55137086509 No Longer Active Piotr Daley DO Active VENTOLIN HFA 108 (90 BASE) MCG/ACT AERS 2 puffs four times a day PRN cough ALBUTEROL SULFATE 28695210102 No Longer Active Piotr Daley DO Active NYSTATIN-TRIAMCINOLONE 405060-5.1 UNIT/GM-% CREA Apply to area BID NYSTATIN-TRIAMCINOLONE 02805939034 No Longer Active Alena Jarvis Fan PRINTING PRESS MACHINE OPERATOR Active PHISOHEX 3 % LIQD Use Directed HEXACHLOROPHENE 20591609122 No Longer Active Sandra [place] Active AZITHROMYCIN 250 MG TABS 2 po qd x 1 day, then 1 po qd x 4 days AZITHROMYCIN 62991231756 No Longer Active Katrina Rinaldi MD PhD Active AZITHROMYCIN 250 MG TABS 2 po qd x 1 day, then 1 po qd x 4 days AZITHROMYCIN 15134482905 No Longer Active Piotr Daley DO Active AZITHROMYCIN 500 MG SOLR 1 po q day AZITHROMYCIN 76064731388 No Longer Active Piotr Daley DO Active IBUPROFEN 800 MG TABS 1 tab every 8 hours as needed IBUPROFEN 71868872407 Active Ellen Feliciano RN Active NYSTATIN-TRIAMCINOLONE 293838-0.1 UNIT/GM-% CREA apply bid 08/19 NYSTATIN-TRIAMCINOLONE 59107438797 No Longer Active Piotr Daley DO Active IBUPROFEN 800 MG TABS 1 po q 8 hours prn pain sparinly IBUPROFEN 38066306502 No Longer Active Piotr Daley DO Active VITAMIN D3 5000 UNIT CAPS 1 po daily CHOLECALCIFEROL 78810347659 Active Piotr Daley DO Active IBUPROFEN 800 MG TABS 1 po q 8 hours prn pain sparinly IBUPROFEN 800 MG TABS 427338 IBUPROFEN Inactive NYSTATIN-TRIAMCINOLONE 375515-2.1 UNIT/GM-% CREA apply bid 08/19 NYSTATIN-TRIAMCINOLONE 703059-4.1 UNIT/GM-% CREA 7282668 NYSTATIN- TRIAMCINOLONE Inactive AZITHROMYCIN 500 MG SOLR 1 po q day AZITHROMYCIN 500 MG SOLR 529567 AZITHROMYCIN Inactive VENTOLIN HFA 108 (90 BASE) MCG/ACT AERS 2 puffs four times a day PRN cough VENTOLIN HFA 108 (90 BASE) MCG/ACT AERS ALBUTEROL SULFATE Inactive LISINOPRIL 10 MG TABS 1/2-1 tab po every other day LISINOPRIL 10 MG TABS 854952 LISINOPRIL Inactive TUSSIONEX PENNKINETIC ER 10-8 MG/5ML LQCR 5ml po q12hr PRN Cough TUSSIONEX PENNKINETIC ER 10-8 MG/5ML LQCR HYDROCOD POLST- CHLORPHEN POLST Inactive PROMETHAZINE HCL 25 MG TABS 1 four times a day as needed for nausea/vomiting PROMETHAZINE HCL 25 MG TABS 083624 PROMETHAZINE HCL Inactive PREDNISONE 20 MG TAB 1 tablet twice daily for 2 days, then 1 tablet once daily for 2 days PREDNISONE 20 MG TAB 684072 PREDNISONE Inactive WARFARIN SODIUM 4 MG TABS 1 tab every evening WARFARIN SODIUM 4 MG TABS 915053 WARFARIN SODIUM Inactive AZITHROMYCIN 250 MG TABS 2 po qd x 1 day, then 1 po qd x 4 days AZITHROMYCIN 250 MG TABS 4165730 AZITHROMYCIN Inactive AZITHROMYCIN 250 MG TABS 2 po qd x 1 day, then 1 po qd x 4 days AZITHROMYCIN 250 MG TABS 6062028 AZITHROMYCIN Inactive NYSTATIN-TRIAMCINOLONE 622873-0.1 UNIT/GM-% CREA Apply to area BID NYSTATIN-TRIAMCINOLONE 883255-1.1 UNIT/GM-% CREA 9929687 NYSTATIN-TRIAMCINOLONE Inactive AZITHROMYCIN 250 MG TABS 2 po qd x 1 day, then 1 po qd x 4 days AZITHROMYCIN 250 MG TABS 5393186 AZITHROMYCIN Inactive AZITHROMYCIN 250 MG TABS 2 po qd x 1 day, then 1 po qd x 4 days AZITHROMYCIN 250 MG TABS 7321290 AZITHROMYCIN Inactive Vital Signs Date Name Value [...] 11.1-13.4 international normalized ratio (INR) 2.0 1.0-3.5 Lab Report: Prothrombin Time, Basic Metabolic Panel, CBC, Prostatic Spec ... - Chemistry prostate specific antigen 0.08 ng/mL 0.00-4.00 sodium, serum 142 mmol/L 286-456 0615/12/01 potassium, serum 4.7 mmol/L 3.5-5.2 chloride, serum [...] 142-424 Encounters Code Encounter Date Provider Facility CPT-08087 Level 3 Est. Patient 12:41:58 BRANCH ADMINISTRATOR Piotr Daley [facility] CPT-69088 Level 3 Est. Patient 09:21:24 CDT Piotr Wilson [facility] CPT-04069 Level 3 Est. Patient 09:21:11 CDT Piotr Wilson [facility] CPT-27643 Level 3 Est. Patient 11:16:29 BRANCH ADMINISTRATOR Piotr Daley [facility] CPT-98029 Level 3 Est. Patient 18:40:19 BRANCH ADMINISTRATOR Piotr Daley [facility] CPT-03837 Level 3 Est. Patient 19:30:50 CDT Piotr Wilson [facility] CPT-58584 Level 3 Est. Patient 22:06:44 CDT Katrina Rinaldi MD PhD [facility] CPT-98983 Level 3 Est. Patient 14:20:00 CDT Piotr Daley [facility] CPT-04721 Level 3 Est. Patient 14:15:22 BRANCH ADMINISTRATOR Piotr Daley [facility] CPT-30577 Level 3 Est. Patient 20:19:57 BRANCH ADMINISTRATOR Piotr Daley [facility] CPT-78889 Level 3 Est. Patient 16:44:32 CDT Piotr Daley [facility] CPT-84873 Level 3 Est. Patient 08:48:46 BRANCH ADMINISTRATOR Piotr Daley [facility] CPT-26143 Level 3 Est. Patient 21:01:21 CDT Piotr Wilson [facility] Procedures Code Procedure Name Date Entry Date Standard Description CPT-OV Office Visit 15:45:01 BRANCH ADMINISTRATOR CPT-83218 Abd compl w upright 17:10:25 CDT
--- OUTSIDE RECORDS SUMMARY | 2018-07-18 11:15 | XMS REPORT | Clinical Summary ---
Author Author Admin, YONG Organization [facility] Address Unknown Phone Unavailable Allergies, Adverse [...] Rinaldi MD PhD BRONCHITIS-ACUTE ICD-466.0 Inactive Poitr Katie Daley DO Bronchitis-Acute ICD-466.0 Inactive Piotr Daley DO Medication List Medication Instructions Start Date Stop Date Generic Name NDC Status Provider Patient Instruction WARFARIN SODIUM 4 MG TABS 1 tab every evening WARFARIN SODIUM 44480057854 No Longer Active Piotr Daley DO Active WARFARIN SODIUM 5 MG TABS 1 tablet daily except for 1.5 tablet saturday, sat and sat. WARFARIN SODIUM 98806069792 Active Piotr Daley DO Active PREDNISONE 20 MG TAB 1 tablet twice daily for 2 days, then 1 tablet once daily for 2 days PREDNISONE 98709212685 No Longer Active Piotr Daley DO Active PROMETHAZINE HCL 25 MG TABS 1 four times a day as needed for nausea/vomiting PROMETHAZINE HCL 25606932400 No Longer Active Piotr Daley DO Active TUSSIONEX PENNKINETIC ER 10-8 MG/5ML LQCR 5ml po q12hr PRN Cough HYDROCOD POLST-CHLORPHEN POLST 49942019402 No Longer Active Piotr Daley DO Active AZITHROMYCIN 250 MG TABS 2 po qd x 1 day, then 1 po qd x 4 days AZITHROMYCIN 52197291935 No Longer Active Piotr Daley DO Active LOMOTIL 2.5-0.025 MG TAB 1 to 2 four times a day as needed for diarrhea 10/13 DIPHENOXYLATE-ATROPINE 86503216057 Active Piotr Daley DO Active AZITHROMYCIN 250 MG TABS 2 po qd x 1 day, then 1 po qd x 4 days AZITHROMYCIN 61519633981 No Longer Active Piotr Daley DO Active LISINOPRIL-HYDROCHLOROTHIAZIDE 10-12.5 MG TABS 1 tab by mouth daily LISINOPRIL-HYDROCHLOROTHIAZIDE 21825724192 Active Piotr Daley DO Active LISINOPRIL 10 MG TABS 1/2-1 tab po every other day LISINOPRIL 44062114937 No Longer Active Piotr Daley DO Active VENTOLIN HFA 108 (90 BASE) MCG/ACT AERS 2 puffs four times a day PRN cough ALBUTEROL SULFATE 81982872577 No Longer Active Piotr Daley DO Active NYSTATIN-TRIAMCINOLONE 654735-0.1 UNIT/GM-% CREA Apply to area BID NYSTATIN-TRIAMCINOLONE 81320098151 No Longer Active Alena Jarvis Fan CINEMA OR THEATRE MANAGER Active PHISOHEX 3 % LIQD Use Directed HEXACHLOROPHENE 45373459623 No Longer Active Sandra [place] Active AZITHROMYCIN 250 MG TABS 2 po qd x 1 day, then 1 po qd x 4 days AZITHROMYCIN 61947011986 No Longer Active Katrina Rinaldi MD PhD Active AZITHROMYCIN 250 MG TABS 2 po qd x 1 day, then 1 po qd x 4 days AZITHROMYCIN 37308561436 No Longer Active Piotr Daley DO Active AZITHROMYCIN 500 MG SOLR 1 po q day AZITHROMYCIN 06964138533 No Longer Active Piotr Daley DO Active IBUPROFEN 800 MG TABS 1 tab every 8 hours as needed IBUPROFEN 94392786546 Active Ellen Feliciano RN Active NYSTATIN-TRIAMCINOLONE 057900-4.1 UNIT/GM-% CREA apply bid 08/19 NYSTATIN-TRIAMCINOLONE 82822856063 No Longer Active Piotr Daley DO Active IBUPROFEN 800 MG TABS 1 po q 8 hours prn pain sparinly IBUPROFEN 78761951883 No Longer Active Piotr Daley DO Active VITAMIN D3 5000 UNIT CAPS 1 po daily CHOLECALCIFEROL 56066447593 Active Piotr Daley DO Active IBUPROFEN 800 MG TABS 1 po q 8 hours prn pain sparinly IBUPROFEN 800 MG TABS 045323 IBUPROFEN Inactive NYSTATIN-TRIAMCINOLONE 146242-2.1 UNIT/GM-% CREA apply bid 08/19 NYSTATIN-TRIAMCINOLONE 630660-8.1 UNIT/GM-% CREA 8287771 NYSTATIN- TRIAMCINOLONE Inactive AZITHROMYCIN 500 MG SOLR 1 po q day AZITHROMYCIN 500 MG SOLR 894707 AZITHROMYCIN Inactive VENTOLIN HFA 108 (90 BASE) MCG/ACT AERS 2 puffs four times a day PRN cough VENTOLIN HFA 108 (90 BASE) MCG/ACT AERS ALBUTEROL SULFATE Inactive LISINOPRIL 10 MG TABS 1/2-1 tab po every other day LISINOPRIL 10 MG TABS 174591 LISINOPRIL Inactive TUSSIONEX PENNKINETIC ER 10-8 MG/5ML LQCR 5ml po q12hr PRN Cough TUSSIONEX PENNKINETIC ER 10-8 MG/5ML LQCR HYDROCOD POLST- CHLORPHEN POLST Inactive PROMETHAZINE HCL 25 MG TABS 1 four times a day as needed for nausea/vomiting PROMETHAZINE HCL 25 MG TABS 773145 PROMETHAZINE HCL Inactive PREDNISONE 20 MG TAB 1 tablet twice daily for 2 days, then 1 tablet once daily for 2 days PREDNISONE 20 MG TAB 817713 PREDNISONE Inactive WARFARIN SODIUM 4 MG TABS 1 tab every evening WARFARIN SODIUM 4 MG TABS 383818 WARFARIN SODIUM Inactive AZITHROMYCIN 250 MG TABS 2 po qd x 1 day, then 1 po qd x 4 days AZITHROMYCIN 250 MG TABS 3874205 AZITHROMYCIN Inactive AZITHROMYCIN 250 MG TABS 2 po qd x 1 day, then 1 po qd x 4 days AZITHROMYCIN 250 MG TABS 5624783 AZITHROMYCIN Inactive NYSTATIN-TRIAMCINOLONE 805903-6.1 UNIT/GM-% CREA Apply to area BID NYSTATIN-TRIAMCINOLONE 137940-5.1 UNIT/GM-% CREA 9373184 NYSTATIN-TRIAMCINOLONE Inactive AZITHROMYCIN 250 MG TABS 2 po qd x 1 day, then 1 po qd x 4 days AZITHROMYCIN 250 MG TABS 9472371 AZITHROMYCIN Inactive AZITHROMYCIN 250 MG TABS 2 po qd x 1 day, then 1 po qd x 4 days AZITHROMYCIN 250 MG TABS 5701859 AZITHROMYCIN Inactive Vital Signs Date Name Value [...] ratio (INR) 2.4 1.0-3.5 prothrombin time (patient) 21.0 SECS s 11.1-13.4 international normalized ratio (INR) 2.8 1.0-3.5 international normalized ratio (INR) 3.5 1.0-3.5 prothrombin time (patient) 23.4 SECS s 11.1-13.4 international normalized ratio (INR) 1.4 1.0-3.5 prothrombin time (patient) 14.5 SECS s 11.1-13.4 Lab Report: Prothrombin Time, Basic Metabolic Panel, CBC, Prostatic Spec ... - Chemistry prostate specific antigen 0.08 ng/mL 0.00-4.00 sodium, serum 142 mmol/L 802-960 2604/12/01 potassium, serum 4.7 mmol/L 3.5-5.2 chloride, serum [...] 142-424 Encounters Code Encounter Date Provider Facility CPT-61457 Level 3 Est. 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 Patient 09:21:24 CDT Piotr Daley [facility] CPT-33746 Level 3 Est. Patient 09:21:11 CDT Piotr Wilson [facility] CPT-75103 Level 3 Est. Patient 11:16:29 BRIM EDGE TRIMMER Piotr Daley [facility] CPT-22449 Level 3 Est. Patient 18:40:19 BRIM EDGE TRIMMER Piotr Daley [facility] CPT-61447 Level 3 Est. Patient 19:30:50 CDT Piotr Daley [facility] CPT-08952 Level 3 Est. Patient 22:06:44 CDT Katrina Rinaldi MD [facility] CPT-40743 Level 3 Est. Patient 14:20:00 CDT Piotr Daley [facility] CPT-40468 Level 3 Est. Patient 14:15:22 BRIM EDGE TRIMMER Piotr Daley [facility] CPT-79415 Level 3 Est. Patient 20:19:57 BRIM EDGE TRIMMER Piotr Daley [facility] CPT-33019 Level 3 Est. Patient 16:44:32 CDT Piotr Daley [facility] CPT-67009 Level 3 Est. Patient 08:48:46 BRIM EDGE TRIMMER Piotr Daley [facility] CPT-88246 Level 3 Est. Patient 21:01:21 CDT Piotr Daley [facility] Procedures Code Procedure Name Date Entry Date Standard Description CPT-OV Office Visit 15:45:01 BRIM EDGE TRIMMER CPT-44893 Abd compl w upright 17:10:25 CDT
--- OUTSIDE RECORDS SUMMARY | 2018-07-18 11:15 | XMS REPORT | Clinical Summary ---
Author Author Admin, YONG Organization [facility] Address Unknown Phone Unavailable Allergies, Adverse [...] TABS 1 tab every evening WARFARIN SODIUM 27746965495 No Longer Active Piotr Daley DO Active WARFARIN SODIUM 5 MG TABS 1 tablet daily except for 1.5 tablet saturday, sat and sat. WARFARIN SODIUM 61195730411 Active Piotr Daley DO Active PREDNISONE 20 MG TAB 1 tablet twice daily for 2 days, then 1 tablet once daily for 2 days PREDNISONE 00117511856 No Longer Active Piotr Daley DO Active PROMETHAZINE HCL 25 MG TABS 1 four times a day as needed for nausea/vomiting PROMETHAZINE HCL 30426976982 No Longer Active Piotr Daley DO Active TUSSIONEX PENNKINETIC ER 10-8 MG/5ML LQCR 5ml po q12hr PRN Cough HYDROCOD POLST-CHLORPHEN POLST 17366598258 No Longer Active Piotr Daley DO Active AZITHROMYCIN 250 MG TABS 2 po qd x 1 day, then 1 po qd x 4 days AZITHROMYCIN 88016918801 No Longer Active Piotr Daley DO Active LOMOTIL 2.5-0.025 MG TAB 1 to 2 four times a day as needed for diarrhea 10/13 DIPHENOXYLATE-ATROPINE 97745357310 Active Piotr Daley DO Active AZITHROMYCIN 250 MG TABS 2 po qd x 1 day, then 1 po qd x 4 days AZITHROMYCIN 27984681279 No Longer Active Piotr Daley DO Active LISINOPRIL-HYDROCHLOROTHIAZIDE 10-12.5 MG TABS 1 tab by mouth daily LISINOPRIL-HYDROCHLOROTHIAZIDE 27848558851 Active Piotr Daley DO Active LISINOPRIL 10 MG TABS 1/2-1 tab po every other day LISINOPRIL 02588165214 No Longer Active Piotr Daley DO Active VENTOLIN HFA 108 (90 BASE) MCG/ACT AERS 2 puffs four times a day PRN cough ALBUTEROL SULFATE 89124021379 No Longer Active Piotr Daley DO Active NYSTATIN-TRIAMCINOLONE 789044-5.1 UNIT/GM-% CREA Apply to area BID NYSTATIN-TRIAMCINOLONE 89213832980 No Longer Active Alena Jarvis Fan SODA JERKER Active PHISOHEX 3 % LIQD Use Directed HEXACHLOROPHENE 77246861242 No Longer Active Sandra [place] Active AZITHROMYCIN 250 MG TABS 2 po qd x 1 day, then 1 po qd x 4 days AZITHROMYCIN 78501222216 No Longer Active Katrina Rinaldi MD PhD Active AZITHROMYCIN 250 MG TABS 2 po qd x 1 day, then 1 po qd x 4 days AZITHROMYCIN 87940949897 No Longer Active Piotr Daley DO Active AZITHROMYCIN 500 MG SOLR 1 po q day AZITHROMYCIN 55090926660 No Longer Active Piotr Daley DO Active IBUPROFEN 800 MG TABS 1 tab every 8 hours as needed IBUPROFEN 90070710955 Active Ellen Feliciano RN Active NYSTATIN-TRIAMCINOLONE 720544-9.1 UNIT/GM-% CREA apply bid 08/19 NYSTATIN-TRIAMCINOLONE 81631528447 No Longer Active Piotr Daley DO Active IBUPROFEN 800 MG TABS 1 po q 8 hours prn pain sparinly IBUPROFEN 56218864364 No Longer Active Piotr Daley DO Active VITAMIN D3 5000 UNIT CAPS 1 po daily CHOLECALCIFEROL 33792447143 Active Piotr Daley DO Active IBUPROFEN 800 MG TABS 1 po q 8 hours prn pain sparinly IBUPROFEN 800 MG TABS 658384 IBUPROFEN Inactive NYSTATIN-TRIAMCINOLONE 761773-0.1 UNIT/GM-% CREA apply bid 08/19 NYSTATIN-TRIAMCINOLONE 535013-8.1 UNIT/GM-% CREA 8726359 NYSTATIN- TRIAMCINOLONE Inactive AZITHROMYCIN 500 MG SOLR 1 po q day AZITHROMYCIN 500 MG SOLR 913703 AZITHROMYCIN Inactive VENTOLIN HFA 108 (90 BASE) MCG/ACT AERS 2 puffs four times a day PRN cough VENTOLIN HFA 108 (90 BASE) MCG/ACT AERS ALBUTEROL SULFATE Inactive LISINOPRIL 10 MG TABS 1/2-1 tab po every other day LISINOPRIL 10 MG TABS 645823 LISINOPRIL Inactive TUSSIONEX PENNKINETIC ER 10-8 MG/5ML LQCR 5ml po q12hr PRN Cough TUSSIONEX PENNKINETIC ER 10-8 MG/5ML LQCR HYDROCOD POLST- CHLORPHEN POLST Inactive PROMETHAZINE HCL 25 MG TABS 1 four times a day as needed for nausea/vomiting PROMETHAZINE HCL 25 MG TABS 130830 PROMETHAZINE HCL Inactive PREDNISONE 20 MG TAB 1 tablet twice daily for 2 days, then 1 tablet once daily for 2 days PREDNISONE 20 MG TAB 961783 PREDNISONE Inactive WARFARIN SODIUM 4 MG TABS 1 tab every evening WARFARIN SODIUM 4 MG TABS 345785 WARFARIN SODIUM Inactive AZITHROMYCIN 250 MG TABS 2 po qd x 1 day, then 1 po qd x 4 days AZITHROMYCIN 250 MG TABS 1639568 AZITHROMYCIN Inactive AZITHROMYCIN 250 MG TABS 2 po qd x 1 day, then 1 po qd x 4 days AZITHROMYCIN 250 MG TABS 2804679 AZITHROMYCIN Inactive NYSTATIN-TRIAMCINOLONE 873991-4.1 UNIT/GM-% CREA Apply to area BID NYSTATIN-TRIAMCINOLONE 046437-0.1 UNIT/GM-% CREA 2935975 NYSTATIN-TRIAMCINOLONE Inactive AZITHROMYCIN 250 MG TABS 2 po qd x 1 day, then 1 po qd x 4 days AZITHROMYCIN 250 MG TABS 5530039 AZITHROMYCIN Inactive AZITHROMYCIN 250 MG TABS 2 po qd x 1 day, then 1 po qd x 4 days AZITHROMYCIN 250 MG TABS 3552427 AZITHROMYCIN Inactive Vital Signs Date Name Value [...] ... - Chemistry sodium, serum 142 mmol/L 318-926 6770/12/01 potassium, serum 4.7 mmol/L 3.5-5.2 chloride, serum [...] 142-424 Encounters Code Encounter Date Provider Facility CPT-75327 Level 3 Est. 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 Patient 09:21:24 CDT Piotr Daley [facility] CPT-32603 Level 3 Est. Patient 09:21:11 CDT Piotr Daley [facility] CPT-06590 Level 3 Est. Patient 11:16:29 PUTTY MIXER AND APPLIER Piotr Daley [facility] CPT-87629 Level 3 Est. Patient 18:40:19 PUTTY MIXER AND APPLIER Piotr W Edi [facility] CPT-07642 Level 3 Est. Patient 19:30:50 CDT Piotr Daley [facility] CPT-26708 Level 3 Est. Patient 22:06:44 CDT Katrina Rinaldi MD [facility] CPT-30606 Level 3 Est. Patient 14:20:00 CDT Piotr Daley [facility] CPT-45528 Level 3 Est. Patient 14:15:22 PUTTY MIXER AND APPLIER Piotr Daley [facility] CPT-28104 Level 3 Est. Patient 20:19:57 PUTTY MIXER AND APPLIER Piotr Daley [facility] CPT-32264 Level 3 Est. Patient 16:44:32 CDT Piotr Daley [facility] CPT-48601 Level 3 Est. Patient 08:48:46 PUTTY MIXER AND APPLIER Piotr Daley [facility] CPT-93653 Level 3 Est. Patient 21:01:21 CDT Piotr [facility] Procedures Code Procedure Name Date Entry Date Standard Description CPT-OV Office Visit 15:45:01 PUTTY MIXER AND APPLIER CPT-53135 Abd compl w upright 17:10:25 CDT
--- OUTSIDE RECORDS SUMMARY | 2018-07-18 11:16 | XMS REPORT | Clinical Summary ---
[...] TABS 1 tab every evening WARFARIN SODIUM 38396790050 No Longer Active Piotr Daley DO Active WARFARIN SODIUM 5 MG TABS 1 tablet daily except for 1.5 tablet saturday, sat and sat. WARFARIN SODIUM 87234637152 Active Piotr Daley DO Active PREDNISONE 20 MG TAB 1 tablet twice daily for 2 days, then 1 tablet once daily for 2 days PREDNISONE 55193542083 No Longer Active Piotr Daley DO Active PROMETHAZINE HCL 25 MG TABS 1 four times a day as needed for nausea/vomiting PROMETHAZINE HCL 86995719314 No Longer Active Piotr Daley DO Active TUSSIONEX PENNKINETIC ER 10-8 MG/5ML LQCR 5ml po q12hr PRN Cough HYDROCOD POLST-CHLORPHEN POLST 96400943623 No Longer Active Piotr Daley DO Active AZITHROMYCIN 250 MG TABS 2 po qd x 1 day, then 1 po qd x 4 days AZITHROMYCIN 88899974712 No Longer Active Piotr Daley DO Active LOMOTIL 2.5-0.025 MG TAB 1 to 2 four times a day as needed for diarrhea 10/13 DIPHENOXYLATE-ATROPINE 60050652967 Active Piotr Daley DO Active AZITHROMYCIN 250 MG TABS 2 po qd x 1 day, then 1 po qd x 4 days AZITHROMYCIN 52974979850 No Longer Active Piotr Daley DO Active LISINOPRIL-HYDROCHLOROTHIAZIDE 10-12.5 MG TABS 1 tab by mouth daily LISINOPRIL-HYDROCHLOROTHIAZIDE 56202995964 Active Piotr Daley DO Active LISINOPRIL 10 MG TABS 1/2-1 tab po every other day LISINOPRIL 06113331522 No Longer Active Piotr Daley DO Active VENTOLIN HFA 108 (90 BASE) MCG/ACT AERS 2 puffs four times a day PRN cough ALBUTEROL SULFATE 66562314033 No Longer Active Piotr Daley DO Active NYSTATIN-TRIAMCINOLONE 450570-5.1 UNIT/GM-% CREA Apply to area BID NYSTATIN-TRIAMCINOLONE 37704338776 No Longer Active Alena Jarvis Fan DISPUTE RESOLUTION SPECIALIST Active PHISOHEX 3 % LIQD Use Directed HEXACHLOROPHENE 48866431593 No Longer Active Sandra [place] Active AZITHROMYCIN 250 MG TABS 2 po qd x 1 day, then 1 po qd x 4 days AZITHROMYCIN 82534262249 No Longer Active Katrina Rinaldi MD PhD Active AZITHROMYCIN 250 MG TABS 2 po qd x 1 day, then 1 po qd x 4 days AZITHROMYCIN 46278312735 No Longer Active Piotr Daley DO Active AZITHROMYCIN 500 MG SOLR 1 po q day AZITHROMYCIN 50220508947 No Longer Active Piotr Daley DO Active IBUPROFEN 800 MG TABS 1 tab every 8 hours as needed IBUPROFEN 45996415176 Active Ellen Feliciano RN Active NYSTATIN-TRIAMCINOLONE 288359-1.1 UNIT/GM-% CREA apply bid 08/19 NYSTATIN-TRIAMCINOLONE 82871167279 No Longer Active Piotr Daley DO Active IBUPROFEN 800 MG TABS 1 po q 8 hours prn pain sparinly IBUPROFEN 30851444318 No Longer Active Piotr Daley DO Active VITAMIN D3 5000 UNIT CAPS 1 po daily CHOLECALCIFEROL 19443758764 Active Piotr Daley DO Active IBUPROFEN 800 MG TABS 1 po q 8 hours prn pain sparinly IBUPROFEN 800 MG TABS 371878 IBUPROFEN Inactive NYSTATIN-TRIAMCINOLONE 398502-2.1 UNIT/GM-% CREA apply bid 08/19 NYSTATIN-TRIAMCINOLONE 611865-9.1 UNIT/GM-% CREA 2483745 NYSTATIN- TRIAMCINOLONE Inactive AZITHROMYCIN 500 MG SOLR 1 po q day AZITHROMYCIN 500 MG SOLR 919819 AZITHROMYCIN Inactive VENTOLIN HFA 108 (90 BASE) MCG/ACT AERS 2 puffs four times a day PRN cough VENTOLIN HFA 108 (90 BASE) MCG/ACT AERS ALBUTEROL SULFATE Inactive LISINOPRIL 10 MG TABS 1/2-1 tab po every other day LISINOPRIL 10 MG TABS 467266 LISINOPRIL Inactive TUSSIONEX PENNKINETIC ER 10-8 MG/5ML LQCR 5ml po q12hr PRN Cough TUSSIONEX PENNKINETIC ER 10-8 MG/5ML LQCR HYDROCOD POLST- CHLORPHEN POLST Inactive PROMETHAZINE HCL 25 MG TABS 1 four times a day as needed for nausea/vomiting PROMETHAZINE HCL 25 MG TABS 833371 PROMETHAZINE HCL Inactive PREDNISONE 20 MG TAB 1 tablet twice daily for 2 days, then 1 tablet once daily for 2 days PREDNISONE 20 MG TAB 490666 PREDNISONE Inactive WARFARIN SODIUM 4 MG TABS 1 tab every evening WARFARIN SODIUM 4 MG TABS 065212 WARFARIN SODIUM Inactive AZITHROMYCIN 250 MG TABS 2 po qd x 1 day, then 1 po qd x 4 days AZITHROMYCIN 250 MG TABS 5314053 AZITHROMYCIN Inactive AZITHROMYCIN 250 MG TABS 2 po qd x 1 day, then 1 po qd x 4 days AZITHROMYCIN 250 MG TABS 6223425 AZITHROMYCIN Inactive NYSTATIN-TRIAMCINOLONE 187285-5.1 UNIT/GM-% CREA Apply to area BID NYSTATIN-TRIAMCINOLONE 243677-4.1 UNIT/GM-% CREA 8169150 NYSTATIN-TRIAMCINOLONE Inactive AZITHROMYCIN 250 MG TABS 2 po qd x 1 day, then 1 po qd x 4 days AZITHROMYCIN 250 MG TABS 9140484 AZITHROMYCIN Inactive AZITHROMYCIN 250 MG TABS 2 po qd x 1 day, then 1 po qd x 4 days AZITHROMYCIN 250 MG TABS 6595892 AZITHROMYCIN Inactive Vital Signs Date Name Value [...] (INR) 2.4 1.0-3.5 international normalized ratio (INR) 1.6 1.0-3.5 prothrombin time (patient) 15.4 SECS s 11.1-13.4 international normalized ratio (INR) 1.4 1.0-3.5 prothrombin time (patient) 14.5 SECS s 11.1-13.4 Lab Report: Prothrombin Time, Basic Metabolic Panel, CBC, Prostatic Spec ... - Chemistry prostate specific antigen 0.08 ng/mL 0.00-4.00 sodium, serum 142 mmol/L 909-635 1460/12/01 potassium, serum 4.7 mmol/L 3.5-5.2 chloride, serum [...] 142-424 Encounters Code Encounter Date Provider Facility CPT-53261 Level 3 Est. 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 Patient 09:21:24 CDT Piotr Wilson [facility] CPT-07228 Level 3 Est. Patient 09:21:11 CDT Piotr Wilson [facility] CPT-97763 Level 3 Est. Patient 11:16:29 CLOTHESPIN DRIER OPERATOR Piotr Wilson [facility] CPT-97174 Level 3 Est. Patient 18:40:19 CLOTHESPIN DRIER OPERATOR Piotr Wilson [facility] CPT-08759 Level 3 Est. Patient 19:30:50 CDT Piotr Wilson [facility] CPT-52063 Level 3 Est. Patient 22:06:44 CDT Katrina Rinaldi MD PhD [facility] CPT-56043 Level 3 Est. Patient 14:20:00 CDT Piotr Daley [facility] CPT-94479 Level 3 Est. Patient 14:15:22 CLOTHESPIN DRIER OPERATOR Piotr Daley [facility] CPT-45186 Level 3 Est. Patient 20:19:57 CLOTHESPIN DRIER OPERATOR Piotr Daley [facility] CPT-94066 Level 3 Est. Patient 16:44:32 CDT Piotr Daley [facility] CPT-95181 Level 3 Est. Patient 08:48:46 CLOTHESPIN DRIER OPERATOR Piotr Daley [facility] CPT-22921 Level 3 Est. Patient 21:01:21 CDT Piotr Wilson [facility] Procedures Code Procedure Name Date Entry Date Standard Description CPT-OV Office Visit 15:45:01 CLOTHESPIN DRIER OPERATOR CPT-42452 Abd compl w upright 17:10:25 CDT
--- OUTSIDE RECORDS SUMMARY | 2018-07-18 11:16 | XMS REPORT | Clinical Summary ---
[...] VENOUS THROMBOPHLEBITIS, LEG, RIGHT 453.40 Active Piotr aDley DO Acute venous embolism and thrombosis of [...] day as needed for nausea/vomiting PROMETHAZINE HCL 62441289605 No Longer Active Piotr Daley DO Active TUSSIONEX PENNKINETIC ER 10-8 MG/5ML LQCR 5ml po q12hr PRN Cough HYDROCOD POLST-CHLORPHEN POLST 43801131570 No Longer Active Piotr Daley DO Active AZITHROMYCIN 250 MG TABS 2 po qd x 1 day, then 1 po qd x 4 days AZITHROMYCIN 20771770975 No Longer Active Piotr Daley DO Active LOMOTIL 2.5-0.025 MG TAB 1 to 2 four times a day as needed for diarrhea 10/13 DIPHENOXYLATE-ATROPINE 53124527351 Active Piotr Daley DO Active PREDNISONE 20 MG TAB 1 tablet twice daily for 2 days, then 1 tablet once daily for 2 days PREDNISONE 64312035166 Active Piotr Daley DO Active AZITHROMYCIN 250 MG TABS 2 po qd x 1 day, then 1 po qd x 4 days AZITHROMYCIN 68774431857 No Longer Active Piotr Daley DO Active LISINOPRIL-HYDROCHLOROTHIAZIDE 10-12.5 MG TABS 1 tab by mouth daily LISINOPRIL-HYDROCHLOROTHIAZIDE 06654936279 Active Piotr Daley DO Active LISINOPRIL 10 MG TABS 1/2-1 tab po every other day LISINOPRIL 69478768778 No Longer Active iPotr Daley DO Active WARFARIN SODIUM 4 MG TABS 1 tab every evening WARFARIN SODIUM 82425843949 Active Piotr Daley DO Active VENTOLIN HFA 108 (90 BASE) MCG/ACT AERS 2 puffs four times a day PRN cough ALBUTEROL SULFATE 25434335927 No Longer Active Piotr Daley DO Active NYSTATIN-TRIAMCINOLONE 962859-4.1 UNIT/GM-% CREA Apply to area BID NYSTATIN-TRIAMCINOLONE 67006206886 No Longer Active Alena Chavira PAINTER DECORATOR Active PHISOHEX 3 % LIQD Use Directed HEXACHLOROPHENE 28313471539 No Longer Active Sandra [place] Active AZITHROMYCIN 250 MG TABS 2 po qd x 1 day, then 1 po qd x 4 days AZITHROMYCIN 34306986091 No Longer Active Katrina Rinaldi MD PhD Active AZITHROMYCIN 250 MG TABS 2 po qd x 1 day, then 1 po qd x 4 days AZITHROMYCIN 26691735840 No Longer Active Piotr Daley DO Active AZITHROMYCIN 500 MG SOLR 1 po q day AZITHROMYCIN 71680335728 No Longer Active Piotr Daley DO Active IBUPROFEN 800 MG TABS 1 tab every 8 hours as needed IBUPROFEN 19896047383 Active Ellen Feliciano RN Active NYSTATIN-TRIAMCINOLONE 574902-7.1 UNIT/GM-% CREA apply bid 08/19 NYSTATIN-TRIAMCINOLONE 12006103895 No Longer Active Piotr Daley DO Active IBUPROFEN 800 MG TABS 1 po q 8 hours prn pain sparinly IBUPROFEN 82137321303 No Longer Active Piotr Daley DO Active VITAMIN D3 5000 UNIT CAPS 1 po daily CHOLECALCIFEROL 24192489314 Active Piotr Daley DO Active IBUPROFEN 800 MG TABS 1 po q 8 hours prn pain sparinly IBUPROFEN 800 MG TABS 130572 IBUPROFEN Inactive NYSTATIN-TRIAMCINOLONE 404006-2.1 UNIT/GM-% CREA apply bid 08/19 NYSTATIN-TRIAMCINOLONE 966509-8.1 UNIT/GM-% CREA 9004089 NYSTATIN- TRIAMCINOLONE Inactive AZITHROMYCIN 500 MG SOLR 1 po q day AZITHROMYCIN 500 MG SOLR 484066 AZITHROMYCIN Inactive VENTOLIN HFA 108 (90 BASE) MCG/ACT AERS 2 puffs four times a day PRN cough VENTOLIN HFA 108 (90 BASE) MCG/ACT AERS ALBUTEROL SULFATE Inactive LISINOPRIL 10 MG TABS 1/2-1 tab po every other day LISINOPRIL 10 MG TABS 813274 LISINOPRIL Inactive TUSSIONEX PENNKINETIC ER 10-8 MG/5ML LQCR 5ml po q12hr PRN Cough TUSSIONEX PENNKINETIC ER 10-8 MG/5ML LQCR HYDROCOD POLST- CHLORPHEN POLST Inactive PROMETHAZINE HCL 25 MG TABS 1 four times a day as needed for nausea/vomiting PROMETHAZINE HCL 25 MG TABS 416533 PROMETHAZINE HCL Inactive AZITHROMYCIN 250 MG TABS 2 po qd x 1 day, then 1 po qd x 4 days AZITHROMYCIN 250 MG TABS 9510393 AZITHROMYCIN Inactive AZITHROMYCIN 250 MG TABS 2 po qd x 1 day, then 1 po qd x 4 days AZITHROMYCIN 250 MG TABS 8683008 AZITHROMYCIN Inactive NYSTATIN-TRIAMCINOLONE 488013-7.1 UNIT/GM-% CREA Apply to area BID NYSTATIN-TRIAMCINOLONE 428092-5.1 UNIT/GM-% CREA 3198931 NYSTATIN-TRIAMCINOLONE Inactive AZITHROMYCIN 250 MG TABS 2 po qd x 1 day, then 1 po qd x 4 days AZITHROMYCIN 250 MG TABS 4162198 AZITHROMYCIN Inactive AZITHROMYCIN 250 MG TABS 2 po qd x 1 day, then 1 po qd x 4 days AZITHROMYCIN 250 MG TABS 5891704 AZITHROMYCIN Inactive Vital Signs Date Name Value [...] Weight Measured blood pressure, diastolic - 8462-4 81 mm[Hg] BP phan blood pressure, systolic - 8480-6 146 mm[Hg] BP sys height E&M - 8302-2 71.5 [in_us] Bdy height pulse rate E&M - 8867-4 67 /min Heart rate temperature E&M 97.1 [degF] Body temperature weight E&M - 3141-9 224 [lb_av] Weight Measured blood pressure, diastolic - 8462-4 87 mm[Hg] BP phan blood pressure, systolic - 8480-6 145 mm[Hg] BP sys height E&M - 8302-2 71.5 [in_us] Bdy height pulse rate E&M - 8867-4 69 /min Heart rate temperature E&M 97.3 [degF] Body temperature weight E&M - 3141-9 228.50 [lb_av] Weight Measured Diagnostic Results Date Name Value Unit Range Description Append: Anticoagulation Management - Coagulation international normalized ratio (INR) coagulation managed by Piotr Daley DO international normalized ratio (INR) coagulation managed by Piotr Daley international normalized ratio (INR) 2 coagulation managed by LUIS international normalized ratio (INR) Lab Report: Prostatic [...] ratio (INR) 1.4 1.0-3.5 prothrombin time (patient) 17.5 SECS s 11.4-12.8 international normalized ratio (INR) 2.0 1.0-3.5 prothrombin time (patient) 24.0 SECS s 11.4-12.8 international normalized ratio (INR) 3.7 1.0-3.5 prothrombin time (patient) 17.4 SECS s 11.4-12.8 international normalized ratio (INR) 2.0 1.0-3.5 Encounters Code Encounter Date Provider Facility CPT-23103 Level 3 Est. Patient 09:21:24 CDT Piotr Daley [facility] CPT-65310 Level 3 Est. Patient 09:21:11 CDT Piotr Daley [facility] CPT-81806 Level 3 Est. Patient 11:16:29 CHARCOAL KILN BURNER Piotr Daley [facility] CPT-60781 Level 3 Est. Patient 18:40:19 CHARCOAL KILN BURNER Piotr Daley [facility] CPT-04521 Level 3 Est. Patient 19:30:50 CDT Piotr Daley [facility] CPT-88087 Level 3 Est. Patient 22:06:44 CDT Katrina Rinaldi MD PhD [facility] CPT-71494 Level 3 Est. Patient 14:20:00 CDT Piotr Daley [facility] CPT-37258 Level 3 Est. Patient 14:15:22 CHARCOAL KILN BURNER Piotr Daley [facility] CPT-18047 Level 3 Est. Patient 20:19:57 CHARCOAL KILN BURNER Piotr Daley [facility] CPT-70246 Level 3 Est. Patient 16:44:32 CDT Piotr Wilson [facility] CPT-68919 Level 3 Est. Patient 08:48:46 CHARCOAL KILN BURNER Piotr Daley [facility] CPT-62515 Level 3 Est. Patient 21:01:21 CDT Piotr Katie [facility] Procedures Code Procedure Name Date Entry Date Standard Description CPT-OV Office Visit 15:45:01 CHARCOAL KILN BURNER CPT-88022 Abd compl w upright 17:10:25 CDT
--- OUTSIDE RECORDS SUMMARY | 2018-07-18 11:17 | XMS REPORT | Clinical Summary ---
Author Author Admin, YONG Organization [facility] Address Unknown Phone Unavailable Allergies, Adverse [...] day as needed for nausea/vomiting PROMETHAZINE HCL 81465842133 No Longer Active Piotr Daley DO Active TUSSIONEX PENNKINETIC ER 10-8 MG/5ML LQCR 5ml po q12hr PRN Cough HYDROCOD POLST-CHLORPHEN POLST 83404061507 No Longer Active Piotr Daley DO Active AZITHROMYCIN 250 MG TABS 2 po qd x 1 day, then 1 po qd x 4 days AZITHROMYCIN 85018923207 No Longer Active Piotr Daley DO Active LOMOTIL 2.5-0.025 MG TAB 1 to 2 four times a day as needed for diarrhea 10/13 DIPHENOXYLATE-ATROPINE 63687770140 Active Piotr Daley DO Active PREDNISONE 20 MG TAB 1 tablet twice daily for 2 days, then 1 tablet once daily for 2 days PREDNISONE 67349574480 Active Piotr Daley DO Active AZITHROMYCIN 250 MG TABS 2 po qd x 1 day, then 1 po qd x 4 days AZITHROMYCIN 65003075719 No Longer Active Piotr Daley DO Active LISINOPRIL-HYDROCHLOROTHIAZIDE 10-12.5 MG TABS 1 tab by mouth daily LISINOPRIL-HYDROCHLOROTHIAZIDE 93230856689 Active Piotr Daley DO Active LISINOPRIL 10 MG TABS 1/2-1 tab po every other day LISINOPRIL 90200415612 No Longer Active Piotr Daley DO Active WARFARIN SODIUM 4 MG TABS 1 tab every evening WARFARIN SODIUM 68879649858 Active Piotr Daley DO Active VENTOLIN HFA 108 (90 BASE) MCG/ACT AERS 2 puffs four times a day PRN cough ALBUTEROL SULFATE 17662649426 No Longer Active Piotr Daley DO Active NYSTATIN-TRIAMCINOLONE 805991-6.1 UNIT/GM-% CREA Apply to area BID NYSTATIN-TRIAMCINOLONE 21547731534 No Longer Active Alena Chavira PHOTOVOLTAIC INSTALLATION TECHNICIAN Active PHISOHEX 3 % LIQD Use Directed HEXACHLOROPHENE 51280946414 No Longer Active Sandra Atwood Active AZITHROMYCIN 250 MG TABS 2 po qd x 1 day, then 1 po qd x 4 days AZITHROMYCIN 83180735015 No Longer Active Katrina Rinaldi MD PhD Active AZITHROMYCIN 250 MG TABS 2 po qd x 1 day, then 1 po qd x 4 days AZITHROMYCIN 13763738757 No Longer Active Piotr Daley DO Active AZITHROMYCIN 500 MG SOLR 1 po q day AZITHROMYCIN 63346735239 No Longer Active Piotr Daley DO Active IBUPROFEN 800 MG TABS 1 tab every 8 hours as needed IBUPROFEN 04706508469 Active Ellen Feliciano RN Active NYSTATIN-TRIAMCINOLONE 047001-6.1 UNIT/GM-% CREA apply bid 08/19 NYSTATIN-TRIAMCINOLONE 85056063975 No Longer Active Piotr Daley DO Active IBUPROFEN 800 MG TABS 1 po q 8 hours prn pain sparinly IBUPROFEN 20821370282 No Longer Active Piotr Daley DO Active VITAMIN D3 5000 UNIT CAPS 1 po daily CHOLECALCIFEROL 32109896358 Active Piotr Daley DO Active IBUPROFEN 800 MG TABS 1 po q 8 hours prn pain sparinly IBUPROFEN 800 MG TABS 996745 IBUPROFEN Inactive NYSTATIN-TRIAMCINOLONE 388121-8.1 UNIT/GM-% CREA apply bid 08/19 NYSTATIN-TRIAMCINOLONE 887021-5.1 UNIT/GM-% CREA 6628608 NYSTATIN- TRIAMCINOLONE Inactive AZITHROMYCIN 500 MG SOLR 1 po q day AZITHROMYCIN 500 MG SOLR 038678 AZITHROMYCIN Inactive VENTOLIN HFA 108 (90 BASE) MCG/ACT AERS 2 puffs four times a day PRN cough VENTOLIN HFA 108 (90 BASE) MCG/ACT AERS ALBUTEROL SULFATE Inactive LISINOPRIL 10 MG TABS 1/2-1 tab po every other day LISINOPRIL 10 MG TABS 919811 LISINOPRIL Inactive TUSSIONEX PENNKINETIC ER 10-8 MG/5ML LQCR 5ml po q12hr PRN Cough TUSSIONEX PENNKINETIC ER 10-8 MG/5ML LQCR HYDROCOD POLST- CHLORPHEN POLST Inactive PROMETHAZINE HCL 25 MG TABS 1 four times a day as needed for nausea/vomiting PROMETHAZINE HCL 25 MG TABS 840346 PROMETHAZINE HCL Inactive AZITHROMYCIN 250 MG TABS 2 po qd x 1 day, then 1 po qd x 4 days AZITHROMYCIN 250 MG TABS 7277828 AZITHROMYCIN Inactive AZITHROMYCIN 250 MG TABS 2 po qd x 1 day, then 1 po qd x 4 days AZITHROMYCIN 250 MG TABS 5615062 AZITHROMYCIN Inactive NYSTATIN-TRIAMCINOLONE 822130-9.1 UNIT/GM-% CREA Apply to area BID NYSTATIN-TRIAMCINOLONE 212273-3.1 UNIT/GM-% CREA 0960072 NYSTATIN-TRIAMCINOLONE Inactive AZITHROMYCIN 250 MG TABS 2 po qd x 1 day, then 1 po qd x 4 days AZITHROMYCIN 250 MG TABS 1420689 AZITHROMYCIN Inactive AZITHROMYCIN 250 MG TABS 2 po qd x 1 day, then 1 po qd x 4 days AZITHROMYCIN 250 MG TABS 0295140 AZITHROMYCIN Inactive Vital Signs Date Name Value [...] Piotr Daley DO international normalized ratio (INR) 2 coagulation managed by [facility]IS international normalized ratio (INR) coagulation managed by Piotr Daley international normalized ratio (INR) Lab Report: Prostatic Specific Ag - Chemistry prostate specific antigen 0.04 ng/mL 0.00-4.00 Lab Report: Prothrombin Time - Coagulation prothrombin time (patient) 16.8 SECS s 11.4-12.8 international normalized ratio (INR) 1.9 1.0-3.5 prothrombin time (patient) 16.0 SECS s 11.1-13.4 international normalized ratio (INR) 1.7 1.0-3.5 prothrombin time (patient) 24.0 SECS s 11.4-12.8 international normalized ratio (INR) 3.7 1.0-3.5 prothrombin time (patient) 17.5 SECS s 11.4-12.8 international normalized ratio (INR) 2.0 1.0-3.5 international normalized ratio (INR) 2.0 1.0-3.5 prothrombin time (patient) 17.4 SECS s 11.4-12.8 Encounters Code Encounter Date Provider Facility CPT-72379 Level 3 Est. Patient 09:21:24 CDT Piotr Daley [facility] CPT-16229 Level 3 Est. Patient 09:21:11 CDT Piotr Daley [facility] CPT-44839 Level 3 Est. Patient 11:16:29 LEAD ADVISOR Piotr Daley [facility] CPT-69322 Level 3 Est. Patient 18:40:19 LEAD ADVISOR Piotr Daley [facility] CPT-08673 Level 3 Est. Patient 19:30:50 CDT Piotr Daley [facility] CPT-80404 Level 3 Est. Patient 22:06:44 CDT Katrina Rinaldi MD [facility] CPT-54328 Level 3 Est. Patient 14:20:00 CDT Piotr Daley [facility] CPT-02490 Level 3 Est. Patient 14:15:22 LEAD ADVISOR Piotr Katie Daley [facility] CPT-92862 Level 3 Est. Patient 20:19:57 LEAD ADVISOR Piotr Daley [facility] CPT-95109 Level 3 Est. Patient 16:44:32 CDT Piotr Katie Daley [facility] CPT-78722 Level 3 Est. Patient 08:48:46 LEAD ADVISOR Piotr Wilson [facility] CPT-25691 Level 3 Est. Patient 21:01:21 CDT Piotr Wilson [facility] Procedures Code Procedure Name Date Entry Date Standard Description CPT-OV Office Visit 15:45:01 LEAD ADVISOR CPT-30928 Abd compl w upright 17:10:25 CDT
--- OUTSIDE RECORDS SUMMARY | 2018-07-18 11:17 | XMS REPORT | Clinical Summary ---
[...] TABS 1 tab every evening WARFARIN SODIUM 35024495306 No Longer Active Piotr Daley DO Active WARFARIN SODIUM 5 MG TABS 1 tablet daily except for 1.5 tablet saturday, sat and sat. WARFARIN SODIUM 76814438128 Active Piotr Daley DO Active PREDNISONE 20 MG TAB 1 tablet twice daily for 2 days, then 1 tablet once daily for 2 days PREDNISONE 94823377776 No Longer Active Piotr Daley DO Active PROMETHAZINE HCL 25 MG TABS 1 four times a day as needed for nausea/vomiting PROMETHAZINE HCL 18725185418 No Longer Active Piotr Daley DO Active TUSSIONEX PENNKINETIC ER 10-8 MG/5ML LQCR 5ml po q12hr PRN Cough HYDROCOD POLST-CHLORPHEN POLST 84397990156 No Longer Active Piotr Daley DO Active AZITHROMYCIN 250 MG TABS 2 po qd x 1 day, then 1 po qd x 4 days AZITHROMYCIN 05922023699 No Longer Active Piotr Daley DO Active LOMOTIL 2.5-0.025 MG TAB 1 to 2 four times a day as needed for diarrhea 10/13 DIPHENOXYLATE-ATROPINE 13262610413 Active Piotr Daley DO Active AZITHROMYCIN 250 MG TABS 2 po qd x 1 day, then 1 po qd x 4 days AZITHROMYCIN 86698680350 No Longer Active Piotr Daley DO Active LISINOPRIL-HYDROCHLOROTHIAZIDE 10-12.5 MG TABS 1 tab by mouth daily LISINOPRIL-HYDROCHLOROTHIAZIDE 59621986825 Active Piotr Daley DO Active LISINOPRIL 10 MG TABS 1/2-1 tab po every other day LISINOPRIL 75167040467 No Longer Active Piotr Daley DO Active VENTOLIN HFA 108 (90 BASE) MCG/ACT AERS 2 puffs four times a day PRN cough ALBUTEROL SULFATE 54572450047 No Longer Active Piotr Daley DO Active NYSTATIN-TRIAMCINOLONE 072292-0.1 UNIT/GM-% CREA Apply to area BID NYSTATIN-TRIAMCINOLONE 34578962059 No Longer Active Alena Jarvis Fan CONTINUOUS YARN DYEING MACHINE OPERATOR Active PHISOHEX 3 % LIQD Use Directed HEXACHLOROPHENE 21132452409 No Longer Active Sandra Polacca Active AZITHROMYCIN 250 MG TABS 2 po qd x 1 day, then 1 po qd x 4 days AZITHROMYCIN 79467823001 No Longer Active Katrina Rinaldi MD PhD Active AZITHROMYCIN 250 MG TABS 2 po qd x 1 day, then 1 po qd x 4 days AZITHROMYCIN 81371140386 No Longer Active Piotr Daley DO Active AZITHROMYCIN 500 MG SOLR 1 po q day AZITHROMYCIN 28191938163 No Longer Active Piotr Daley DO Active IBUPROFEN 800 MG TABS 1 tab every 8 hours as needed IBUPROFEN 00981406143 Active Ellen Feliciano RN Active NYSTATIN-TRIAMCINOLONE 784741-4.1 UNIT/GM-% CREA apply bid 08/19 NYSTATIN-TRIAMCINOLONE 68966056199 No Longer Active Piotr Daley DO Active IBUPROFEN 800 MG TABS 1 po q 8 hours prn pain sparinly IBUPROFEN 62117477310 No Longer Active Piotr Daley DO Active VITAMIN D3 5000 UNIT CAPS 1 po daily CHOLECALCIFEROL 03609612319 Active Piotr Daley DO Active IBUPROFEN 800 MG TABS 1 po q 8 hours prn pain sparinly IBUPROFEN 800 MG TABS 866726 IBUPROFEN Inactive NYSTATIN-TRIAMCINOLONE 544629-5.1 UNIT/GM-% CREA apply bid 08/19 NYSTATIN-TRIAMCINOLONE 821830-5.1 UNIT/GM-% CREA 1855832 NYSTATIN- TRIAMCINOLONE Inactive AZITHROMYCIN 500 MG SOLR 1 po q day AZITHROMYCIN 500 MG SOLR 853524 AZITHROMYCIN Inactive VENTOLIN HFA 108 (90 BASE) MCG/ACT AERS 2 puffs four times a day PRN cough VENTOLIN HFA 108 (90 BASE) MCG/ACT AERS ALBUTEROL SULFATE Inactive LISINOPRIL 10 MG TABS 1/2-1 tab po every other day LISINOPRIL 10 MG TABS 952656 LISINOPRIL Inactive TUSSIONEX PENNKINETIC ER 10-8 MG/5ML LQCR 5ml po q12hr PRN Cough TUSSIONEX PENNKINETIC ER 10-8 MG/5ML LQCR HYDROCOD POLST- CHLORPHEN POLST Inactive PROMETHAZINE HCL 25 MG TABS 1 four times a day as needed for nausea/vomiting PROMETHAZINE HCL 25 MG TABS 230932 PROMETHAZINE HCL Inactive PREDNISONE 20 MG TAB 1 tablet twice daily for 2 days, then 1 tablet once daily for 2 days PREDNISONE 20 MG TAB 851908 PREDNISONE Inactive WARFARIN SODIUM 4 MG TABS 1 tab every evening WARFARIN SODIUM 4 MG TABS 899818 WARFARIN SODIUM Inactive AZITHROMYCIN 250 MG TABS 2 po qd x 1 day, then 1 po qd x 4 days AZITHROMYCIN 250 MG TABS 1780892 AZITHROMYCIN Inactive AZITHROMYCIN 250 MG TABS 2 po qd x 1 day, then 1 po qd x 4 days AZITHROMYCIN 250 MG TABS 4021050 AZITHROMYCIN Inactive NYSTATIN-TRIAMCINOLONE 534132-8.1 UNIT/GM-% CREA Apply to area BID NYSTATIN-TRIAMCINOLONE 341632-1.1 UNIT/GM-% CREA 0290167 NYSTATIN-TRIAMCINOLONE Inactive AZITHROMYCIN 250 MG TABS 2 po qd x 1 day, then 1 po qd x 4 days AZITHROMYCIN 250 MG TABS 3623606 AZITHROMYCIN Inactive AZITHROMYCIN 250 MG TABS 2 po qd x 1 day, then 1 po qd x 4 days AZITHROMYCIN 250 MG TABS 3350800 AZITHROMYCIN Inactive Vital Signs Date Name Value [...] 0.08 ng/mL 0.00-4.00 sodium, serum 142 mmol/L 822-383 5461/12/01 potassium, serum 4.7 mmol/L 3.5-5.2 chloride, serum [...] 142-424 Encounters Code Encounter Date Provider Facility CPT-68621 Level 3 Est. Patient 12:41:58 APPLICATION PROJECT LEADER Piotr Daley [facility] CPT-95253 Level 3 Est. Patient 09:21:24 CDT Piotr Wilson [facility] CPT-86475 Level 3 Est. Patient 09:21:11 CDT Piotr Wilson [facility] CPT-10099 Level 3 Est. Patient 11:16:29 APPLICATION PROJECT LEADER Piotr Daley [facility] CPT-89349 Level 3 Est. Patient 18:40:19 APPLICATION PROJECT LEADER Piotr Wilson [facility] CPT-98690 Level 3 Est. Patient 19:30:50 CDT Piotr Daley [facility] CPT-56326 Level 3 Est. Patient 22:06:44 CDT Katrina Rinaldi MD [facility] CPT-34034 Level 3 Est. Patient 14:20:00 CDT Piotr Daley [facility] CPT-56314 Level 3 Est. Patient 14:15:22 APPLICATION PROJECT LEADER Piotr Daley [facility] CPT-83817 Level 3 Est. Patient 20:19:57 APPLICATION PROJECT LEADER Piotr Daley [facility] CPT-68722 Level 3 Est. Patient 16:44:32 CDT Piotr Daley [facility] CPT-19030 Level 3 Est. Patient 08:48:46 APPLICATION PROJECT LEADER Piotr Daley [facility] CPT-13924 Level 3 Est. Patient 21:01:21 CDT Piotr Wilson [facility] Procedures Code Procedure Name Date Entry Date Standard Description CPT-OV Office Visit 15:45:01 APPLICATION PROJECT LEADER CPT-84944 Abd compl w upright 17:10:25 CDT
--- OUTSIDE RECORDS SUMMARY | 2018-07-18 11:18 | XMS REPORT | Clinical Summary ---
Author Author Admin, YONG Organization [facility] Address Unknown Phone Unavailable Allergies, [...] day as needed for nausea/vomiting PROMETHAZINE HCL 73306210521 No Longer Active Piotr Daley DO Active TUSSIONEX PENNKINETIC ER 10-8 MG/5ML LQCR 5ml po q12hr PRN Cough HYDROCOD POLST-CHLORPHEN POLST 79414549847 No Longer Active Piotr Daley DO Active AZITHROMYCIN 250 MG TABS 2 po qd x 1 day, then 1 po qd x 4 days AZITHROMYCIN 60445273453 No Longer Active Piotr Daley DO Active LOMOTIL 2.5-0.025 MG TAB 1 to 2 four times a day as needed for diarrhea 10/13 DIPHENOXYLATE-ATROPINE 37159748682 Active Piotr Daley DO Active PREDNISONE 20 MG TAB 1 tablet twice daily for 2 days, then 1 tablet once daily for 2 days PREDNISONE 02444804429 Active Piotr Daley DO Active AZITHROMYCIN 250 MG TABS 2 po qd x 1 day, then 1 po qd x 4 days AZITHROMYCIN 99001364388 No Longer Active Piotr Daley DO Active LISINOPRIL-HYDROCHLOROTHIAZIDE 10-12.5 MG TABS 1 tab by mouth daily LISINOPRIL-HYDROCHLOROTHIAZIDE 77561970992 Active Piotr Daley DO Active LISINOPRIL 10 MG TABS 1/2-1 tab po every other day LISINOPRIL 07847881907 No Longer Active Piotr Daley DO Active WARFARIN SODIUM 4 MG TABS 1 tab every evening WARFARIN SODIUM 47963838804 Active Piotr Daley DO Active VENTOLIN HFA 108 (90 BASE) MCG/ACT AERS 2 puffs four times a day PRN cough ALBUTEROL SULFATE 87952542822 No Longer Active Piotr Daley DO Active NYSTATIN-TRIAMCINOLONE 752707-6.1 UNIT/GM-% CREA Apply to area BID NYSTATIN-TRIAMCINOLONE 32216162865 No Longer Active Alena Chavira INSTRUCTOR HAIRSPRING Active PHISOHEX 3 % LIQD Use Directed HEXACHLOROPHENE 37227577478 No Longer Active Sandra Boulder Active AZITHROMYCIN 250 MG TABS 2 po qd x 1 day, then 1 po qd x 4 days AZITHROMYCIN 73830468954 No Longer Active Katrina Rinaldi MD PhD Active AZITHROMYCIN 250 MG TABS 2 po qd x 1 day, then 1 po qd x 4 days AZITHROMYCIN 62862374104 No Longer Active Piotr Daley DO Active AZITHROMYCIN 500 MG SOLR 1 po q day AZITHROMYCIN 37417072098 No Longer Active Piotr Daley DO Active IBUPROFEN 800 MG TABS 1 tab every 8 hours as needed IBUPROFEN 07673208298 Active Ellen Feliciano RN Active NYSTATIN-TRIAMCINOLONE 194160-8.1 UNIT/GM-% CREA apply bid 08/19 NYSTATIN-TRIAMCINOLONE 36817562314 No Longer Active Piotr Daley DO Active IBUPROFEN 800 MG TABS 1 po q 8 hours prn pain sparinly IBUPROFEN 56222467120 No Longer Active Piotr Daley DO Active VITAMIN D3 5000 UNIT CAPS 1 po daily CHOLECALCIFEROL 64634038889 Active Piotr Daley DO Active IBUPROFEN 800 MG TABS 1 po q 8 hours prn pain sparinly IBUPROFEN 800 MG TABS 998247 IBUPROFEN Inactive NYSTATIN-TRIAMCINOLONE 170934-2.1 UNIT/GM-% CREA apply bid 08/19 NYSTATIN-TRIAMCINOLONE 139298-4.1 UNIT/GM-% CREA 6802787 NYSTATIN- TRIAMCINOLONE Inactive AZITHROMYCIN 500 MG SOLR 1 po q day AZITHROMYCIN 500 MG SOLR 294929 AZITHROMYCIN Inactive VENTOLIN HFA 108 (90 BASE) MCG/ACT AERS 2 puffs four times a day PRN cough VENTOLIN HFA 108 (90 BASE) MCG/ACT AERS ALBUTEROL SULFATE Inactive LISINOPRIL 10 MG TABS 1/2-1 tab po every other day LISINOPRIL 10 MG TABS 456272 LISINOPRIL Inactive TUSSIONEX PENNKINETIC ER 10-8 MG/5ML LQCR 5ml po q12hr PRN Cough TUSSIONEX PENNKINETIC ER 10-8 MG/5ML LQCR HYDROCOD POLST- CHLORPHEN POLST Inactive PROMETHAZINE HCL 25 MG TABS 1 four times a day as needed for nausea/vomiting PROMETHAZINE HCL 25 MG TABS 891892 PROMETHAZINE HCL Inactive AZITHROMYCIN 250 MG TABS 2 po qd x 1 day, then 1 po qd x 4 days AZITHROMYCIN 250 MG TABS 2167310 AZITHROMYCIN Inactive AZITHROMYCIN 250 MG TABS 2 po qd x 1 day, then 1 po qd x 4 days AZITHROMYCIN 250 MG TABS 5065535 AZITHROMYCIN Inactive NYSTATIN-TRIAMCINOLONE 476249-6.1 UNIT/GM-% CREA Apply to area BID NYSTATIN-TRIAMCINOLONE 697131-9.1 UNIT/GM-% CREA 0543368 NYSTATIN-TRIAMCINOLONE Inactive AZITHROMYCIN 250 MG TABS 2 po qd x 1 day, then 1 po qd x 4 days AZITHROMYCIN 250 MG TABS 3348378 AZITHROMYCIN Inactive AZITHROMYCIN 250 MG TABS 2 po qd x 1 day, then 1 po qd x 4 days AZITHROMYCIN 250 MG TABS 7740264 AZITHROMYCIN Inactive Vital Signs Date Name Value [...] temperature weight E&M 224 [lb_av] Weight Measured blood pressure, diastolic 87 mm[Hg] BP phan blood pressure, systolic 145 mm[Hg] BP sys height E&M 71.5 [in_us] Bdy height pulse rate E&M 69 /min Heart rate temperature E&M 97.3 [degF] Body temperature weight E&M 228.50 [lb_av] Weight Measured Diagnostic Results Date [...] 1.0-3.5 Encounters Code Encounter Date Provider Facility CPT-31101 Level 3 Est. Patient 09:21:24 CDT Piotr Daley [facility] CPT-73229 Level 3 Est. Patient 09:21:11 CDT Piotr Daley [facility] CPT-85823 Level 3 Est. 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 Patient 18:40:19 ASSET PROTECTION SPECIALIST Piotr Daley [facility] CPT-21955 Level 3 Est. Patient 19:30:50 CDT Piotr Daley [facility] CPT-26423 Level 3 Est. Patient 22:06:44 CDT Katrina Rinaldi MD [facility] CPT-67299 Level 3 Est. Patient 14:20:00 CDT Piotr Daley [facility] CPT-79131 Level 3 Est. 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 Patient 20:19:57 ASSET PROTECTION SPECIALIST Piotr Daley [facility] CPT-86270 Level 3 Est. Patient 16:44:32 CDT Piotr Katie Daley [facility] CPT-37957 Level 3 Est. Patient 08:48:46 ASSET PROTECTION SPECIALIST iPotr Daley [facility] CPT-01870 Level 3 Est. Patient 21:01:21 CDT Piotr Wilson [facility] Procedures Code Procedure Name Date Entry Date Standard Description CPT-OV Office Visit 15:45:01 ASSET PROTECTION SPECIALIST CPT-96962 Abd compl w upright 17:10:25 CDT
--- OUTSIDE RECORDS SUMMARY | 2018-07-18 11:18 | XMS REPORT | Clinical Summary ---
Author Author Admin, YONG Organization [facility] Address Unknown Phone Unavailable Allergies, Adverse [...] TABS 1 tab every evening WARFARIN SODIUM 63416624606 No Longer Active Piotr Daley DO Active WARFARIN SODIUM 5 MG TABS 1 tablet daily except for 1.5 tablet saturday, sat and sat. WARFARIN SODIUM 86453663080 Active Piotr Daley DO Active PREDNISONE 20 MG TAB 1 tablet twice daily for 2 days, then 1 tablet once daily for 2 days PREDNISONE 14565927159 No Longer Active Piotr Daley DO Active PROMETHAZINE HCL 25 MG TABS 1 four times a day as needed for nausea/vomiting PROMETHAZINE HCL 15920929872 No Longer Active Piotr Daley DO Active TUSSIONEX PENNKINETIC ER 10-8 MG/5ML LQCR 5ml po q12hr PRN Cough HYDROCOD POLST-CHLORPHEN POLST 05455018623 No Longer Active Piotr Daley DO Active AZITHROMYCIN 250 MG TABS 2 po qd x 1 day, then 1 po qd x 4 days AZITHROMYCIN 67495544674 No Longer Active Piotr Daley DO Active LOMOTIL 2.5-0.025 MG TAB 1 to 2 four times a day as needed for diarrhea 10/13 DIPHENOXYLATE-ATROPINE 10811827203 Active Piotr Daley DO Active AZITHROMYCIN 250 MG TABS 2 po qd x 1 day, then 1 po qd x 4 days AZITHROMYCIN 51816357098 No Longer Active Piotr Daley DO Active LISINOPRIL-HYDROCHLOROTHIAZIDE 10-12.5 MG TABS 1 tab by mouth daily LISINOPRIL-HYDROCHLOROTHIAZIDE 07052218881 Active Piotr Daley DO Active LISINOPRIL 10 MG TABS 1/2-1 tab po every other day LISINOPRIL 67037073628 No Longer Active Piotr Daley DO Active VENTOLIN HFA 108 (90 BASE) MCG/ACT AERS 2 puffs four times a day PRN cough ALBUTEROL SULFATE 05170925508 No Longer Active Piotr Daley DO Active NYSTATIN-TRIAMCINOLONE 348549-9.1 UNIT/GM-% CREA Apply to area BID NYSTATIN-TRIAMCINOLONE 94492337028 No Longer Active Alena Jarvis Fan ACCOUNT MANAGER TRAINEE Active PHISOHEX 3 % LIQD Use Directed HEXACHLOROPHENE 68070346013 No Longer Active Sandra [place] Active AZITHROMYCIN 250 MG TABS 2 po qd x 1 day, then 1 po qd x 4 days AZITHROMYCIN 10564649948 No Longer Active Katrina Rinaldi MD PhD Active AZITHROMYCIN 250 MG TABS 2 po qd x 1 day, then 1 po qd x 4 days AZITHROMYCIN 16600854278 No Longer Active Piotr Daley DO Active AZITHROMYCIN 500 MG SOLR 1 po q day AZITHROMYCIN 61248256104 No Longer Active Piotr Daley DO Active IBUPROFEN 800 MG TABS 1 tab every 8 hours as needed IBUPROFEN 30600308255 Active Ellen Feliciano RN Active NYSTATIN-TRIAMCINOLONE 434592-9.1 UNIT/GM-% CREA apply bid 08/19 NYSTATIN-TRIAMCINOLONE 65312931052 No Longer Active Piotr Daley DO Active IBUPROFEN 800 MG TABS 1 po q 8 hours prn pain sparinly IBUPROFEN 41121322148 No Longer Active Piotr Daley DO Active VITAMIN D3 5000 UNIT CAPS 1 po daily CHOLECALCIFEROL 07589871779 Active Piotr Daley DO Active IBUPROFEN 800 MG TABS 1 po q 8 hours prn pain sparinly IBUPROFEN 800 MG TABS 615452 IBUPROFEN Inactive NYSTATIN-TRIAMCINOLONE 497040-4.1 UNIT/GM-% CREA apply bid 08/19 NYSTATIN-TRIAMCINOLONE 147146-0.1 UNIT/GM-% CREA 9711594 NYSTATIN- TRIAMCINOLONE Inactive AZITHROMYCIN 500 MG SOLR 1 po q day AZITHROMYCIN 500 MG SOLR 297693 AZITHROMYCIN Inactive VENTOLIN HFA 108 (90 BASE) MCG/ACT AERS 2 puffs four times a day PRN cough VENTOLIN HFA 108 (90 BASE) MCG/ACT AERS ALBUTEROL SULFATE Inactive LISINOPRIL 10 MG TABS 1/2-1 tab po every other day LISINOPRIL 10 MG TABS 428384 LISINOPRIL Inactive TUSSIONEX PENNKINETIC ER 10-8 MG/5ML LQCR 5ml po q12hr PRN Cough TUSSIONEX PENNKINETIC ER 10-8 MG/5ML LQCR HYDROCOD POLST- CHLORPHEN POLST Inactive PROMETHAZINE HCL 25 MG TABS 1 four times a day as needed for nausea/vomiting PROMETHAZINE HCL 25 MG TABS 207570 PROMETHAZINE HCL Inactive PREDNISONE 20 MG TAB 1 tablet twice daily for 2 days, then 1 tablet once daily for 2 days PREDNISONE 20 MG TAB 839478 PREDNISONE Inactive WARFARIN SODIUM 4 MG TABS 1 tab every evening WARFARIN SODIUM 4 MG TABS 785872 WARFARIN SODIUM Inactive AZITHROMYCIN 250 MG TABS 2 po qd x 1 day, then 1 po qd x 4 days AZITHROMYCIN 250 MG TABS 6908913 AZITHROMYCIN Inactive AZITHROMYCIN 250 MG TABS 2 po qd x 1 day, then 1 po qd x 4 days AZITHROMYCIN 250 MG TABS 9311347 AZITHROMYCIN Inactive NYSTATIN-TRIAMCINOLONE 596752-1.1 UNIT/GM-% CREA Apply to area BID NYSTATIN-TRIAMCINOLONE 855639-2.1 UNIT/GM-% CREA 8863663 NYSTATIN-TRIAMCINOLONE Inactive AZITHROMYCIN 250 MG TABS 2 po qd x 1 day, then 1 po qd x 4 days AZITHROMYCIN 250 MG TABS 3131558 AZITHROMYCIN Inactive AZITHROMYCIN 250 MG TABS 2 po qd x 1 day, then 1 po qd x 4 days AZITHROMYCIN 250 MG TABS 7128216 AZITHROMYCIN Inactive Vital Signs Date Name Value [...] (INR) 2.4 1.0-3.5 Lab Report: Prothrombin Time, Basic Metabolic Panel, CBC, Prostatic Spec ... - Chemistry prostate specific antigen 0.08 ng/mL 0.00-4.00 sodium, serum 142 mmol/L 050-140 6525/12/01 potassium, serum 4.7 mmol/L 3.5-5.2 chloride, serum [...] 142-424 Encounters Code Encounter Date Provider Facility CPT-52439 Level 3 Est. Patient 12:41:58 SMART GRID ENGINEER Piotr Dlaey [facility] CPT-32489 Level 3 Est. Patient 09:21:24 CDT Piotr Wilson [facility] CPT-43522 Level 3 Est. Patient 09:21:11 CDT Piotr Wilson [facility] CPT-73012 Level 3 Est. Patient 11:16:29 SMART GRID ENGINEER Piotr Wilson [facility] CPT-44932 Level 3 Est. Patient 18:40:19 SMART GRID ENGINEER Piotr Wilson [facility] CPT-24775 Level 3 Est. Patient 19:30:50 CDT Piotr Wilson [facility] CPT-11473 Level 3 Est. Patient 22:06:44 CDT Katrina Rinaldi MD PhD [facility] CPT-96912 Level 3 Est. Patient 14:20:00 CDT Piotr Daley [facility] CPT-91183 Level 3 Est. Patient 14:15:22 SMART GRID ENGINEER Piotr Daley [facility] CPT-35826 Level 3 Est. Patient 20:19:57 SMART GRID ENGINEER Piotr Daley [facility] CPT-23702 Level 3 Est. Patient 16:44:32 CDT Piotr Daley [facility] CPT-39789 Level 3 Est. Patient 08:48:46 SMART GRID ENGINEER Piotr Daley [facility] CPT-21624 Level 3 Est. Patient 21:01:21 CDT Piotr Wilson [facility] Procedures Code Procedure Name Date Entry Date Standard Description CPT-OV Office Visit 15:45:01 SMART GRID ENGINEER CPT-42673 Abd compl w upright 17:10:25 CDT
--- OUTSIDE RECORDS SUMMARY | 2018-07-18 11:19 | XMS REPORT | Clinical Summary ---
Author Author Admin, YONG Organization [facility] Address Unknown Phone Unavailable Allergies, [...] day as needed for nausea/vomiting PROMETHAZINE HCL 31063867021 No Longer Active Piotr Daley DO Active TUSSIONEX PENNKINETIC ER 10-8 MG/5ML LQCR 5ml po q12hr PRN Cough HYDROCOD POLST-CHLORPHEN POLST 26609203505 No Longer Active Piotr Daley DO Active AZITHROMYCIN 250 MG TABS 2 po qd x 1 day, then 1 po qd x 4 days AZITHROMYCIN 36780787887 No Longer Active Piotr Daley DO Active LOMOTIL 2.5-0.025 MG TAB 1 to 2 four times a day as needed for diarrhea 10/13 DIPHENOXYLATE-ATROPINE 31991123420 Active Piotr Dlaey DO Active PREDNISONE 20 MG TAB 1 tablet twice daily for 2 days, then 1 tablet once daily for 2 days PREDNISONE 87622271529 Active Piotr Daley DO Active AZITHROMYCIN 250 MG TABS 2 po qd x 1 day, then 1 po qd x 4 days AZITHROMYCIN 02570535329 No Longer Active Piotr Daley DO Active LISINOPRIL-HYDROCHLOROTHIAZIDE 10-12.5 MG TABS 1 tab by mouth daily LISINOPRIL-HYDROCHLOROTHIAZIDE 98597306634 Active Piotr Daley DO Active LISINOPRIL 10 MG TABS 1/2-1 tab po every other day LISINOPRIL 84381802813 No Longer Active Piotr Daley DO Active WARFARIN SODIUM 4 MG TABS 1 tab every evening WARFARIN SODIUM 81927327081 Active Piotr Daley DO Active VENTOLIN HFA 108 (90 BASE) MCG/ACT AERS 2 puffs four times a day PRN cough ALBUTEROL SULFATE 96710828295 No Longer Active Piotr Daley DO Active NYSTATIN-TRIAMCINOLONE 619787-5.1 UNIT/GM-% CREA Apply to area BID NYSTATIN-TRIAMCINOLONE 13052100081 No Longer Active Alena Chavira FINANCE INSURANCE MANAGER Active PHISOHEX 3 % LIQD Use Directed HEXACHLOROPHENE 06833262990 No Longer Active Sandra [place] Active AZITHROMYCIN 250 MG TABS 2 po qd x 1 day, then 1 po qd x 4 days AZITHROMYCIN 29098943833 No Longer Active Katrina Rinaldi MD PhD Active AZITHROMYCIN 250 MG TABS 2 po qd x 1 day, then 1 po qd x 4 days AZITHROMYCIN 84779155459 No Longer Active Piotr Daley DO Active AZITHROMYCIN 500 MG SOLR 1 po q day AZITHROMYCIN 19106431663 No Longer Active Piotr Daley DO Active IBUPROFEN 800 MG TABS 1 tab every 8 hours as needed IBUPROFEN 73689601676 Active Ellen Feliciano RN Active NYSTATIN-TRIAMCINOLONE 647198-5.1 UNIT/GM-% CREA apply bid 08/19 NYSTATIN-TRIAMCINOLONE 70378874081 No Longer Active Piotr Daley DO Active IBUPROFEN 800 MG TABS 1 po q 8 hours prn pain sparinly IBUPROFEN 18303017782 No Longer Active Piotr Daley DO Active VITAMIN D3 5000 UNIT CAPS 1 po daily CHOLECALCIFEROL 76725540734 Active Piotr Daley DO Active IBUPROFEN 800 MG TABS 1 po q 8 hours prn pain sparinly IBUPROFEN 800 MG TABS 739783 IBUPROFEN Inactive NYSTATIN-TRIAMCINOLONE 533120-2.1 UNIT/GM-% CREA apply bid 08/19 NYSTATIN-TRIAMCINOLONE 123895-0.1 UNIT/GM-% CREA 7816437 NYSTATIN- TRIAMCINOLONE Inactive AZITHROMYCIN 500 MG SOLR 1 po q day AZITHROMYCIN 500 MG SOLR 490103 AZITHROMYCIN Inactive VENTOLIN HFA 108 (90 BASE) MCG/ACT AERS 2 puffs four times a day PRN cough VENTOLIN HFA 108 (90 BASE) MCG/ACT AERS ALBUTEROL SULFATE Inactive LISINOPRIL 10 MG TABS 1/2-1 tab po every other day LISINOPRIL 10 MG TABS 923229 LISINOPRIL Inactive TUSSIONEX PENNKINETIC ER 10-8 MG/5ML LQCR 5ml po q12hr PRN Cough TUSSIONEX PENNKINETIC ER 10-8 MG/5ML LQCR HYDROCOD POLST- CHLORPHEN POLST Inactive PROMETHAZINE HCL 25 MG TABS 1 four times a day as needed for nausea/vomiting PROMETHAZINE HCL 25 MG TABS 378294 PROMETHAZINE HCL Inactive AZITHROMYCIN 250 MG TABS 2 po qd x 1 day, then 1 po qd x 4 days AZITHROMYCIN 250 MG TABS 1996143 AZITHROMYCIN Inactive AZITHROMYCIN 250 MG TABS 2 po qd x 1 day, then 1 po qd x 4 days AZITHROMYCIN 250 MG TABS 7579819 AZITHROMYCIN Inactive NYSTATIN-TRIAMCINOLONE 033187-8.1 UNIT/GM-% CREA Apply to area BID NYSTATIN-TRIAMCINOLONE 227431-8.1 UNIT/GM-% CREA 5238589 NYSTATIN-TRIAMCINOLONE Inactive AZITHROMYCIN 250 MG TABS 2 po qd x 1 day, then 1 po qd x 4 days AZITHROMYCIN 250 MG TABS 7024989 AZITHROMYCIN Inactive AZITHROMYCIN 250 MG TABS 2 po qd x 1 day, then 1 po qd x 4 days AZITHROMYCIN 250 MG TABS 1451495 AZITHROMYCIN Inactive Vital Signs Date Name Value [...] international normalized ratio (INR) coagulation managed by [facility] coagulation managed by Piotr Daley international normalized ratio (INR) 2 international normalized ratio (INR) Lab Report: Prostatic Specific Ag - Chemistry prostate specific antigen 0.04 ng/mL 0.00-4.00 Lab Report: Prothrombin Time - Coagulation prothrombin time (patient) 17.4 SECS s 11.4-12.8 international normalized ratio (INR) 2.0 1.0-3.5 prothrombin time (patient) 16.8 SECS s 11.4-12.8 international normalized ratio (INR) 1.9 1.0-3.5 international normalized ratio (INR) 2.0 1.0-3.5 prothrombin time (patient) 17.5 SECS s 11.4-12.8 prothrombin time (patient) 24.0 SECS s 11.4-12.8 international normalized ratio (INR) 3.7 1.0-3.5 Encounters Code Encounter Date Provider Facility CPT-92859 Level 3 Est. Patient 09:21:24 CDT Piotr Daley [facility] CPT-35745 Level 3 Est. Patient 09:21:11 CDT Piotr Daley [facility] CPT-60568 Level 3 Est. Patient 11:16:29 FUR TINTER Piotr Daley [facility] CPT-71748 Level 3 Est. Patient 18:40:19 FUR TINTER Piotr Daley [facility] CPT-33070 Level 3 Est. Patient 19:30:50 CDT Piotr Daley [facility] CPT-10488 Level 3 Est. Patient 22:06:44 CDT Katrina Rinaldi MD PhD [facility] CPT-76526 Level 3 Est. Patient 14:20:00 CDT Piotr Daley [facility] CPT-12875 Level 3 Est. Patient 14:15:22 FUR TINTER Piotr Daley [facility] CPT-66936 Level 3 Est. Patient 20:19:57 FUR TINTER Piotr Daley [facility] CPT-62412 Level 3 Est. Patient 16:44:32 CDT Piotr Wilson Edi [facility] CPT-34181 Level 3 Est. Patient 08:48:46 FUR TINTER Piotr Daley [facility] CPT-89235 Level 3 Est. Patient 21:01:21 CDT Piotr Daley [facility] Procedures Code Procedure Name Date Entry Date Standard Description CPT-OV Office Visit 15:45:01 FUR TINTER CPT-68649 Abd compl w upright 17:10:25 CDT
--- OUTSIDE RECORDS SUMMARY | 2018-07-18 11:19 | XMS REPORT | Clinical Summary ---
[...] day as needed for nausea/vomiting PROMETHAZINE HCL 39681830745 No Longer Active Piotr Daley DO Active TUSSIONEX PENNKINETIC ER 10-8 MG/5ML LQCR 5ml po q12hr PRN Cough HYDROCOD POLST-CHLORPHEN POLST 24248500355 No Longer Active Piotr Daley DO Active AZITHROMYCIN 250 MG TABS 2 po qd x 1 day, then 1 po qd x 4 days AZITHROMYCIN 15341368939 No Longer Active Piotr Daley DO Active LOMOTIL 2.5-0.025 MG TAB 1 to 2 four times a day as needed for diarrhea 10/13 DIPHENOXYLATE-ATROPINE 96294866225 Active Piotr Daley DO Active PREDNISONE 20 MG TAB 1 tablet twice daily for 2 days, then 1 tablet once daily for 2 days PREDNISONE 87745157341 Active Piotr Daley DO Active AZITHROMYCIN 250 MG TABS 2 po qd x 1 day, then 1 po qd x 4 days AZITHROMYCIN 19617912430 No Longer Active Piotr Daley DO Active LISINOPRIL-HYDROCHLOROTHIAZIDE 10-12.5 MG TABS 1 tab by mouth daily LISINOPRIL-HYDROCHLOROTHIAZIDE 72023589162 Active Piotr Daley DO Active LISINOPRIL 10 MG TABS 1/2-1 tab po every other day LISINOPRIL 99109623963 No Longer Active Piotr Daley DO Active WARFARIN SODIUM 4 MG TABS 1 tab every evening WARFARIN SODIUM 11088250117 Active Piotr Daley DO Active VENTOLIN HFA 108 (90 BASE) MCG/ACT AERS 2 puffs four times a day PRN cough ALBUTEROL SULFATE 06558798738 No Longer Active Piotr Daley DO Active NYSTATIN-TRIAMCINOLONE 259931-3.1 UNIT/GM-% CREA Apply to area BID NYSTATIN-TRIAMCINOLONE 93439081435 No Longer Active Alena Chavira SENIOR CONSTRUCTION PROJECT MANAGER Active PHISOHEX 3 % LIQD Use Directed HEXACHLOROPHENE 29072092785 No Longer Active Sandra [place] Active AZITHROMYCIN 250 MG TABS 2 po qd x 1 day, then 1 po qd x 4 days AZITHROMYCIN 20131960609 No Longer Active Katrina Rinaldi MD PhD Active AZITHROMYCIN 250 MG TABS 2 po qd x 1 day, then 1 po qd x 4 days AZITHROMYCIN 55611369657 No Longer Active Piotr Daley DO Active AZITHROMYCIN 500 MG SOLR 1 po q day AZITHROMYCIN 21009787899 No Longer Active Poitr Daley DO Active IBUPROFEN 800 MG TABS 1 tab every 8 hours as needed IBUPROFEN 17319889944 Active Ellen Feliciano RN Active NYSTATIN-TRIAMCINOLONE 472752-3.1 UNIT/GM-% CREA apply bid 08/19 NYSTATIN-TRIAMCINOLONE 68661687227 No Longer Active Piotr Daley DO Active IBUPROFEN 800 MG TABS 1 po q 8 hours prn pain sparinly IBUPROFEN 37864322322 No Longer Active Piotr Daley DO Active VITAMIN D3 5000 UNIT CAPS 1 po daily CHOLECALCIFEROL 50388444754 Active Piotr Daley DO Active IBUPROFEN 800 MG TABS 1 po q 8 hours prn pain sparinly IBUPROFEN 800 MG TABS 893150 IBUPROFEN Inactive NYSTATIN-TRIAMCINOLONE 948186-0.1 UNIT/GM-% CREA apply bid 08/19 NYSTATIN-TRIAMCINOLONE 274387-0.1 UNIT/GM-% CREA 2610331 NYSTATIN- TRIAMCINOLONE Inactive AZITHROMYCIN 500 MG SOLR 1 po q day AZITHROMYCIN 500 MG SOLR 430725 AZITHROMYCIN Inactive VENTOLIN HFA 108 (90 BASE) MCG/ACT AERS 2 puffs four times a day PRN cough VENTOLIN HFA 108 (90 BASE) MCG/ACT AERS ALBUTEROL SULFATE Inactive LISINOPRIL 10 MG TABS 1/2-1 tab po every other day LISINOPRIL 10 MG TABS 244890 LISINOPRIL Inactive TUSSIONEX PENNKINETIC ER 10-8 MG/5ML LQCR 5ml po q12hr PRN Cough TUSSIONEX PENNKINETIC ER 10-8 MG/5ML LQCR HYDROCOD POLST- CHLORPHEN POLST Inactive PROMETHAZINE HCL 25 MG TABS 1 four times a day as needed for nausea/vomiting PROMETHAZINE HCL 25 MG TABS 908136 PROMETHAZINE HCL Inactive AZITHROMYCIN 250 MG TABS 2 po qd x 1 day, then 1 po qd x 4 days AZITHROMYCIN 250 MG TABS 1462217 AZITHROMYCIN Inactive AZITHROMYCIN 250 MG TABS 2 po qd x 1 day, then 1 po qd x 4 days AZITHROMYCIN 250 MG TABS 1401381 AZITHROMYCIN Inactive NYSTATIN-TRIAMCINOLONE 727389-4.1 UNIT/GM-% CREA Apply to area BID NYSTATIN-TRIAMCINOLONE 094948-3.1 UNIT/GM-% CREA 8551291 NYSTATIN-TRIAMCINOLONE Inactive AZITHROMYCIN 250 MG TABS 2 po qd x 1 day, then 1 po qd x 4 days AZITHROMYCIN 250 MG TABS 5956913 AZITHROMYCIN Inactive AZITHROMYCIN 250 MG TABS 2 po qd x 1 day, then 1 po qd x 4 days AZITHROMYCIN 250 MG TABS 1276903 AZITHROMYCIN Inactive Vital Signs Date Name Value [...] ratio (INR) 1.9 1.0-3.5 prothrombin time (patient) 14.5 SECS s 11.1-13.4 international normalized ratio (INR) 1.4 1.0-3.5 prothrombin time (patient) 15.4 SECS s 11.1-13.4 international normalized ratio (INR) 1.6 1.0-3.5 prothrombin time (patient) 19.3 SECS s 11.1-13.4 international normalized ratio (INR) 2.4 1.0-3.5 international normalized ratio (INR) 1.7 1.0-3.5 prothrombin time (patient) 16.0 SECS s 11.1-13.4 Encounters Code Encounter Date Provider Facility CPT-17993 Level 3 Est. Patient 09:21:24 CDT Piotr Daley [facility] CPT-71883 Level 3 Est. Patient 09:21:11 CDT Piotr Daley [facility] CPT-81495 Level 3 Est. Patient 11:16:29 [employer]ICK AND [employer]ID LABOR Piotr Daley DO [facility] CPT-70774 Level 3 Est. Patient 18:40:19 BR[employer] AND BLOCK[employer] AID LABOR Piotr Daley DO [facility] CPT-59604 Level 3 Est. Patient 19:30:50 CDT Piotr Daley [facility] CPT-84390 Level 3 Est. Patient 22:06:44 CDT Katrina Rinaldi MD PhD [facility] CPT-58579 Level 3 Est. Patient 14:20:00 CDT Piotr Daley [facility] CPT-66606 Level 3 Est. Patient 14:15:22 [employer] AND [employer] AID LABOR Piotr Daley [facility] CPT-12967 Level 3 Est. Patient 20:19:57 BR[employer] AND BLOCK[employer] AID LABOR Piotr W Edi [facility] CPT-24773 Level 3 Est. Patient 16:44:32 CDT Piotr Daley [facility] CPT-78499 Level 3 Est. Patient 08:48:46 BR[employer] AND [employer] AID LABOR Piotr Daley [facility] CPT-90869 Level 3 Est. Patient 21:01:21 CDT Piotr Wilson [facility] Procedures Code Procedure Name Date Entry Date Standard Description CPT-OV Office Visit 15:45:01 [employer] LABOR CPT-61870 Abd compl w upright 17:10:25 CDT
--- OUTSIDE RECORDS SUMMARY | 2018-07-18 11:19 | XMS REPORT | Clinical Summary ---
Author Author Admin, YONG Organization [facility] Address Unknown Phone Unavailable Allergies, Adverse Reactions, [...] Daley DO SCREENING, COLON CANCER ICD-V76.51 Inactive Katrian Rinaldi MD PhD BRONCHITIS-ACUTE ICD-466.0 Inactive Piotr Katie Daley DO Bronchitis-Acute ICD-466.0 Inactive Piotr Daley DO Medication List Medication Instructions Start Date Stop Date Generic Name NDC Status Provider Patient Instruction WARFARIN SODIUM 4 MG TABS 1 tab every evening WARFARIN SODIUM 85308042941 No Longer Active Piotr Daley DO Active WARFARIN SODIUM 5 MG TABS 1 tablet daily except for 1.5 tablet saturday, sat and sat. WARFARIN SODIUM 05377262849 Active Piotr Daley DO Active PREDNISONE 20 MG TAB 1 tablet twice daily for 2 days, then 1 tablet once daily for 2 days PREDNISONE 66623744558 No Longer Active Piotr Daley DO Active PROMETHAZINE HCL 25 MG TABS 1 four times a day as needed for nausea/vomiting PROMETHAZINE HCL 44123735201 No Longer Active Piotr Daley DO Active TUSSIONEX PENNKINETIC ER 10-8 MG/5ML LQCR 5ml po q12hr PRN Cough HYDROCOD POLST-CHLORPHEN POLST 98093327122 No Longer Active Piotr Daley DO Active AZITHROMYCIN 250 MG TABS 2 po qd x 1 day, then 1 po qd x 4 days AZITHROMYCIN 16895504503 No Longer Active Piotr Daley DO Active LOMOTIL 2.5-0.025 MG TAB 1 to 2 four times a day as needed for diarrhea 10/13 DIPHENOXYLATE-ATROPINE 82862124185 Active Piotr Daley DO Active AZITHROMYCIN 250 MG TABS 2 po qd x 1 day, then 1 po qd x 4 days AZITHROMYCIN 86796911531 No Longer Active Piotr Daley DO Active LISINOPRIL-HYDROCHLOROTHIAZIDE 10-12.5 MG TABS 1 tab by mouth daily LISINOPRIL-HYDROCHLOROTHIAZIDE 76341072827 Active Piotr Daley DO Active LISINOPRIL 10 MG TABS 1/2-1 tab po every other day LISINOPRIL 92679967733 No Longer Active Piotr Daley DO Active VENTOLIN HFA 108 (90 BASE) MCG/ACT AERS 2 puffs four times a day PRN cough ALBUTEROL SULFATE 41262310998 No Longer Active Piotr Daley DO Active NYSTATIN-TRIAMCINOLONE 729836-1.1 UNIT/GM-% CREA Apply to area BID NYSTATIN-TRIAMCINOLONE 86338410539 No Longer Active Alena Jarvis Fan NURSE GYNECOLOGY Active PHISOHEX 3 % LIQD Use Directed HEXACHLOROPHENE 66252770121 No Longer Active Sandra [place] Active AZITHROMYCIN 250 MG TABS 2 po qd x 1 day, then 1 po qd x 4 days AZITHROMYCIN 05524777274 No Longer Active Katrina Rinaldi MD PhD Active AZITHROMYCIN 250 MG TABS 2 po qd x 1 day, then 1 po qd x 4 days AZITHROMYCIN 34462070824 No Longer Active Piotr Daley DO Active AZITHROMYCIN 500 MG SOLR 1 po q day AZITHROMYCIN 36282786423 No Longer Active Piotr Daley DO Active IBUPROFEN 800 MG TABS 1 tab every 8 hours as needed IBUPROFEN 84775655788 Active Ellen Feliciano RN Active NYSTATIN-TRIAMCINOLONE 640157-7.1 UNIT/GM-% CREA apply bid 08/19 NYSTATIN-TRIAMCINOLONE 60091615703 No Longer Active Piotr Daley DO Active IBUPROFEN 800 MG TABS 1 po q 8 hours prn pain sparinly IBUPROFEN 38534421012 No Longer Active Piotr Daley DO Active VITAMIN D3 5000 UNIT CAPS 1 po daily CHOLECALCIFEROL 17154665436 Active Piotr Daley DO Active IBUPROFEN 800 MG TABS 1 po q 8 hours prn pain sparinly IBUPROFEN 800 MG TABS 446063 IBUPROFEN Inactive NYSTATIN-TRIAMCINOLONE 003329-9.1 UNIT/GM-% CREA apply bid 08/19 NYSTATIN-TRIAMCINOLONE 279661-6.1 UNIT/GM-% CREA 9580900 NYSTATIN- TRIAMCINOLONE Inactive AZITHROMYCIN 500 MG SOLR 1 po q day AZITHROMYCIN 500 MG SOLR 211242 AZITHROMYCIN Inactive VENTOLIN HFA 108 (90 BASE) MCG/ACT AERS 2 puffs four times a day PRN cough VENTOLIN HFA 108 (90 BASE) MCG/ACT AERS ALBUTEROL SULFATE Inactive LISINOPRIL 10 MG TABS 1/2-1 tab po every other day LISINOPRIL 10 MG TABS 590513 LISINOPRIL Inactive TUSSIONEX PENNKINETIC ER 10-8 MG/5ML LQCR 5ml po q12hr PRN Cough TUSSIONEX PENNKINETIC ER 10-8 MG/5ML LQCR HYDROCOD POLST- CHLORPHEN POLST Inactive PROMETHAZINE HCL 25 MG TABS 1 four times a day as needed for nausea/vomiting PROMETHAZINE HCL 25 MG TABS 547905 PROMETHAZINE HCL Inactive PREDNISONE 20 MG TAB 1 tablet twice daily for 2 days, then 1 tablet once daily for 2 days PREDNISONE 20 MG TAB 776725 PREDNISONE Inactive WARFARIN SODIUM 4 MG TABS 1 tab every evening WARFARIN SODIUM 4 MG TABS 100311 WARFARIN SODIUM Inactive AZITHROMYCIN 250 MG TABS 2 po qd x 1 day, then 1 po qd x 4 days AZITHROMYCIN 250 MG TABS 5993882 AZITHROMYCIN Inactive AZITHROMYCIN 250 MG TABS 2 po qd x 1 day, then 1 po qd x 4 days AZITHROMYCIN 250 MG TABS 4943889 AZITHROMYCIN Inactive NYSTATIN-TRIAMCINOLONE 340358-3.1 UNIT/GM-% CREA Apply to area BID NYSTATIN-TRIAMCINOLONE 477697-7.1 UNIT/GM-% CREA 1902601 NYSTATIN-TRIAMCINOLONE Inactive AZITHROMYCIN 250 MG TABS 2 po qd x 1 day, then 1 po qd x 4 days AZITHROMYCIN 250 MG TABS 0123593 AZITHROMYCIN Inactive AZITHROMYCIN 250 MG TABS 2 po qd x 1 day, then 1 po qd x 4 days AZITHROMYCIN 250 MG TABS 6309018 AZITHROMYCIN Inactive Vital Signs Date Name Value [...] 0.08 ng/mL 0.00-4.00 sodium, serum 142 mmol/L 363-854 0073/12/01 potassium, serum 4.7 mmol/L 3.5-5.2 chloride, serum [...] 142-424 Encounters Code Encounter Date Provider Facility CPT-79527 Level 3 Est. 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 CPT-54426 Level 3 Est. Patient 09:21:24 CDT Piotr Daley [facility] CPT-81664 Level 3 Est. Patient 09:21:11 CDT Piotr Daley [facility] CPT-41556 Level 3 Est. Patient 11:16:29 TOOL DESIGNER APPRENTICE Piotr Daley [facility] CPT-82389 Level 3 Est. Patient 18:40:19 TOOL DESIGNER APPRENTICE Piotr Daley [facility] CPT-93111 Level 3 Est. Patient 19:30:50 CDT Piotr Daley [facility] CPT-24131 Level 3 Est. Patient 22:06:44 CDT Katrina Rinaldi MD PhD [facility] CPT-23882 Level 3 Est. Patient 14:20:00 CDT Piotr Daley [facility] CPT-63084 Level 3 Est. Patient 14:15:22 TOOL DESIGNER APPRENTICE Piotr Daley [facility] CPT-48597 Level 3 Est. Patient 20:19:57 TOOL DESIGNER APPRENTICE Piotr Daley [facility] CPT-96174 Level 3 Est. Patient 16:44:32 CDT Piotr Daley [facility] CPT-41837 Level 3 Est. Patient 08:48:46 TOOL DESIGNER APPRENTICE Piotr Daley [facility] CPT-57099 Level 3 Est. Patient 21:01:21 CDT Piotr Daley [facility] Procedures Code Procedure Name Date Entry Date Standard Description CPT-OV Office Visit 15:45:01 TOOL DESIGNER APPRENTICE CPT-96635 Abd compl w upright 17:10:25 CDT
--- OUTSIDE RECORDS SUMMARY | 2018-07-18 11:20 | XMS REPORT | Clinical Summary ---
Author Author Admin, YONG Organization [facility] Address Unknown Phone Allergies, Adverse Reactions, Alerts Allergy Name Reaction [...] Inactive Piotr Katie Daley DO Acute bronchitis FLANK PAIN, RIGHT ICD-789.09 Inactive Katrina Rinaldi MD PhD HEALTH MAINTENANCE EXAM ICD-V70.0 Inactive Katrina Rinaldi MD PhD BRONCHITIS-ACUTE ICD-466.0 Inactive Piotr Wilson Edi DO SCREENING, COLON CANCER ICD-V76.51 Inactive Katrina Rinaldi MD PhD BRONCHITIS-ACUTE ICD-466.0 Inactive Piotr Daley DO Bronchitis-Acute ICD-466.0 Inactive Piotr Daley DO Medication List Medication Instructions Start Date Stop Date Generic Name NDC Status Provider Patient Instruction AZITHROMYCIN 250 MG TABS 2 po qd x 1 day, then 1 po qd x 4 days AZITHROMYCIN 78611463888 Active Piotr Daley DO Active PROMETHAZINE HCL 25 MG TABS 1 four times a day as needed for nausea/vomiting PROMETHAZINE HCL 42852130839 Active Piotr Daley DO Active LOMOTIL 2.5-0.025 MG TAB 1 to 2 four times a day as needed for diarrhea 10/13 DIPHENOXYLATE-ATROPINE 07397625992 Active Piotr Daley DO Active PREDNISONE 20 MG TAB 1 tablet twice daily for 2 days, then 1 tablet once daily for 2 days PREDNISONE 09716588826 Active Piotr Daley DO Active TUSSIONEX PENNKINETIC ER 10-8 MG/5ML LQCR 5ml po q12hr PRN Cough HYDROCOD POLST-CHLORPHEN POLST 02608579758 Active Piotr Daley DO Active AZITHROMYCIN 250 MG TABS 2 po qd x 1 day, then 1 po qd x 4 days AZITHROMYCIN 50039079194 No Longer Active Piotr Daley DO Active LISINOPRIL-HYDROCHLOROTHIAZIDE 10-12.5 MG TABS 1 tab by mouth daily LISINOPRIL-HYDROCHLOROTHIAZIDE 65565210611 Active Piotr Daley DO Active LISINOPRIL 10 MG TABS 1/2-1 tab po every other day LISINOPRIL 19220310851 No Longer Active Piotr Daley DO Active WARFARIN SODIUM 4 MG TABS 1 tab every evening WARFARIN SODIUM 91266471405 Active Piotr Daley DO Active VENTOLIN HFA 108 (90 BASE) MCG/ACT AERS 2 puffs four times a day PRN cough ALBUTEROL SULFATE 94935994849 No Longer Active Piotr Daley DO Active NYSTATIN-TRIAMCINOLONE 142886-4.1 UNIT/GM-% CREA Apply to area BID NYSTATIN-TRIAMCINOLONE 95001433416 No Longer Active Alena Oswaldum AEROSPACE PROJECT MANAGER Active PHISOHEX 3 % LIQD Use Directed HEXACHLOROPHENE 11150159330 No Longer Active Sandra [place] Active AZITHROMYCIN 250 MG TABS 2 po qd x 1 day, then 1 po qd x 4 days AZITHROMYCIN 41909514886 No Longer Active Katrina Rinaldi MD PhD Active AZITHROMYCIN 250 MG TABS 2 po qd x 1 day, then 1 po qd x 4 days AZITHROMYCIN 70475277215 No Longer Active Piotr Daley DO Active AZITHROMYCIN 500 MG SOLR 1 po q day AZITHROMYCIN 89496061176 No Longer Active Piotr Daley DO Active IBUPROFEN 800 MG TABS 1 tab every 8 hours as needed IBUPROFEN 72170308685 Active Ellen Feliciano RN Active NYSTATIN-TRIAMCINOLONE 128229-3.1 UNIT/GM-% CREA apply bid 08/19 NYSTATIN-TRIAMCINOLONE 20749405036 No Longer Active Piotr Daley DO Active IBUPROFEN 800 MG TABS 1 po q 8 hours prn pain sparinly IBUPROFEN 00585943528 No Longer Active Piotr W Edi DO Active VITAMIN D3 5000 UNIT CAPS 1 po daily CHOLECALCIFEROL 29569056647 Active Piotr Daley DO Active IBUPROFEN 800 MG TABS 1 po q 8 hours prn pain sparinly IBUPROFEN 800 MG TABS 520929 IBUPROFEN Inactive NYSTATIN-TRIAMCINOLONE 275526-3.1 UNIT/GM-% CREA apply bid 08/19 NYSTATIN-TRIAMCINOLONE 180452-0.1 UNIT/GM-% CREA 0938478 NYSTATIN- TRIAMCINOLONE Inactive AZITHROMYCIN 500 MG SOLR 1 po q day AZITHROMYCIN 500 MG SOLR 003914 AZITHROMYCIN Inactive VENTOLIN HFA 108 (90 BASE) MCG/ACT AERS 2 puffs four times a day PRN cough VENTOLIN HFA 108 (90 BASE) MCG/ACT AERS ALBUTEROL SULFATE Inactive LISINOPRIL 10 MG TABS 1/2-1 tab po every other day LISINOPRIL 10 MG TABS 119557 LISINOPRIL Inactive AZITHROMYCIN 250 MG TABS 2 po qd x 1 day, then 1 po qd x 4 days AZITHROMYCIN 250 MG TABS 7789663 AZITHROMYCIN Inactive AZITHROMYCIN 250 MG TABS 2 po qd x 1 day, then 1 po qd x 4 days AZITHROMYCIN 250 MG TABS 9201675 AZITHROMYCIN Inactive NYSTATIN-TRIAMCINOLONE 986053-8.1 UNIT/GM-% CREA Apply to area BID NYSTATIN-TRIAMCINOLONE 848067-9.1 UNIT/GM-% CREA 3592718 NYSTATIN-TRIAMCINOLONE Inactive AZITHROMYCIN 250 MG TABS 2 po qd x 1 day, then 1 po qd x 4 days AZITHROMYCIN 250 MG TABS 2748882 AZITHROMYCIN Inactive Vital Signs Date Name Value Unit Range Description blood pressure, diastolic - 8462-4 86 mm[Hg] [...] E&M - 3141-9 228.50 [lb_av] Weight Measured blood pressure, diastolic - 8462-4 79 mm[Hg] BP phan blood pressure, systolic - 8480-6 149 mm[Hg] BP sys height E&M - 8302-2 71.5 [in_us] Bdy height pulse rate E&M - 8867-4 62 /min Heart rate temperature E&M 98.6 [degF] Body temperature weight E&M - 3141-9 228 [lb_av] Weight Measured blood pressure, diastolic - 8462-4 78 mm[Hg] BP phan blood pressure, systolic - 8480-6 131 mm[Hg] BP sys height E&M - 8302-2 71.5 [in_us] Bdy height pulse rate E&M - 8867-4 68 /min Heart rate temperature E&M 96.0 [degF] Body temperature weight E&M - 3141-9 228 [lb_av] Weight Measured Diagnostic Results Date Name [...] ratio (INR) 1.9 1.0-3.5 prothrombin time (patient) 17.4 SECS s 11.4-12.8 international normalized ratio (INR) 2.0 1.0-3.5 prothrombin time (patient) 17.5 SECS s 11.4-12.8 international normalized ratio (INR) 2.0 1.0-3.5 prothrombin time (patient) 24.0 SECS s 11.4-12.8 international normalized ratio (INR) 3.7 1.0-3.5 Encounters Code Encounter Date Provider Facility CPT-02555 Level 3 Est. Patient 11:16:29 CAMPUS DIRECTOR Piotr Daley DO [facility] CPT-79836 Level 3 Est. Patient 18:40:19 CAMPUS DIRECTOR Piotr Dalye [facility] CPT-91279 Level 3 Est. Patient 19:30:50 CDT Piort Daley [facility] CPT-02083 Level 3 Est. Patient 22:06:44 CDT Katrina Rinaldi MD PhD [facility] CPT-25975 Level 3 Est. Patient 14:20:00 CDT Piotr Daley [facility] CPT-80885 Level 3 Est. Patient 14:15:22 CAMPUS DIRECTOR Piotr Daley [facility] CPT-30122 Level 3 Est. Patient 20:19:57 CAMPUS DIRECTOR Piotr Daley [facility] CPT-83370 Level 3 Est. Patient 16:44:32 CDT Piotr Daley [facility] CPT-59832 Level 3 Est. Patient 08:48:46 CAMPUS DIRECTOR Piotr Daley [facility] CPT-70340 Level 3 Est. Patient 21:01:21 CDT Piotr Wilson [facility] Procedures Code Procedure Name Date Entry Date Standard Description CPT-OV Office Visit 15:45:01 CAMPUS DIRECTOR CPT-20273 Abd compl w upright 17:10:25 CDT
--- OUTSIDE RECORDS SUMMARY | 2018-07-18 11:20 | XMS REPORT | Clinical Summary ---
[...] day as needed for nausea/vomiting PROMETHAZINE HCL 37870466477 No Longer Active Piotr Daley DO Active TUSSIONEX PENNKINETIC ER 10-8 MG/5ML LQCR 5ml po q12hr PRN Cough HYDROCOD POLST-CHLORPHEN POLST 31356692045 No Longer Active Piotr Daley DO Active AZITHROMYCIN 250 MG TABS 2 po qd x 1 day, then 1 po qd x 4 days AZITHROMYCIN 00557204675 No Longer Active Piotr Daley DO Active LOMOTIL 2.5-0.025 MG TAB 1 to 2 four times a day as needed for diarrhea 10/13 DIPHENOXYLATE-ATROPINE 49143488888 Active Piotr Daley DO Active PREDNISONE 20 MG TAB 1 tablet twice daily for 2 days, then 1 tablet once daily for 2 days PREDNISONE 36137145311 Active Piotr Daley DO Active AZITHROMYCIN 250 MG TABS 2 po qd x 1 day, then 1 po qd x 4 days AZITHROMYCIN 24165760701 No Longer Active Piort Daley DO Active LISINOPRIL-HYDROCHLOROTHIAZIDE 10-12.5 MG TABS 1 tab by mouth daily LISINOPRIL-HYDROCHLOROTHIAZIDE 17684876024 Active Piotr Daley DO Active LISINOPRIL 10 MG TABS 1/2-1 tab po every other day LISINOPRIL 16238666655 No Longer Active Piotr Daley DO Active WARFARIN SODIUM 4 MG TABS 1 tab every evening WARFARIN SODIUM 51898706762 Active Piotr Daley DO Active VENTOLIN HFA 108 (90 BASE) MCG/ACT AERS 2 puffs four times a day PRN cough ALBUTEROL SULFATE 04606433307 No Longer Active Piotr Daley DO Active NYSTATIN-TRIAMCINOLONE 715602-4.1 UNIT/GM-% CREA Apply to area BID NYSTATIN-TRIAMCINOLONE 86923916888 No Longer Active Alena Chavira [employer] Active PHISOHEX 3 % LIQD Use Directed HEXACHLOROPHENE 25334595729 No Longer Active Sandra [place] Active AZITHROMYCIN 250 MG TABS 2 po qd x 1 day, then 1 po qd x 4 days AZITHROMYCIN 94343875170 No Longer Active Katrina Rinaldi MD PhD Active AZITHROMYCIN 250 MG TABS 2 po qd x 1 day, then 1 po qd x 4 days AZITHROMYCIN 85223527116 No Longer Active Piotr Daley DO Active AZITHROMYCIN 500 MG SOLR 1 po q day AZITHROMYCIN 37776829194 No Longer Active Piotr Daley DO Active IBUPROFEN 800 MG TABS 1 tab every 8 hours as needed IBUPROFEN 32793131092 Active Ellen Feliciano RN Active NYSTATIN-TRIAMCINOLONE 619172-0.1 UNIT/GM-% CREA apply bid 08/19 NYSTATIN-TRIAMCINOLONE 11259306130 No Longer Active Piotr Daley DO Active IBUPROFEN 800 MG TABS 1 po q 8 hours prn pain sparinly IBUPROFEN 36715982912 No Longer Active Piotr Daley DO Active VITAMIN D3 5000 UNIT CAPS 1 po daily CHOLECALCIFEROL 81675428348 Active Piotr Daley DO Active IBUPROFEN 800 MG TABS 1 po q 8 hours prn pain sparinly IBUPROFEN 800 MG TABS 126794 IBUPROFEN Inactive NYSTATIN-TRIAMCINOLONE 189436-1.1 UNIT/GM-% CREA apply bid 08/19 NYSTATIN-TRIAMCINOLONE 280552-8.1 UNIT/GM-% CREA 0344161 NYSTATIN- TRIAMCINOLONE Inactive AZITHROMYCIN 500 MG SOLR 1 po q day AZITHROMYCIN 500 MG SOLR 923997 AZITHROMYCIN Inactive VENTOLIN HFA 108 (90 BASE) MCG/ACT AERS 2 puffs four times a day PRN cough VENTOLIN HFA 108 (90 BASE) MCG/ACT AERS ALBUTEROL SULFATE Inactive LISINOPRIL 10 MG TABS 1/2-1 tab po every other day LISINOPRIL 10 MG TABS 602274 LISINOPRIL Inactive TUSSIONEX PENNKINETIC ER 10-8 MG/5ML LQCR 5ml po q12hr PRN Cough TUSSIONEX PENNKINETIC ER 10-8 MG/5ML LQCR HYDROCOD POLST- CHLORPHEN POLST Inactive PROMETHAZINE HCL 25 MG TABS 1 four times a day as needed for nausea/vomiting PROMETHAZINE HCL 25 MG TABS 930768 PROMETHAZINE HCL Inactive AZITHROMYCIN 250 MG TABS 2 po qd x 1 day, then 1 po qd x 4 days AZITHROMYCIN 250 MG TABS 0353992 AZITHROMYCIN Inactive AZITHROMYCIN 250 MG TABS 2 po qd x 1 day, then 1 po qd x 4 days AZITHROMYCIN 250 MG TABS 4589111 AZITHROMYCIN Inactive NYSTATIN-TRIAMCINOLONE 996799-1.1 UNIT/GM-% CREA Apply to area BID NYSTATIN-TRIAMCINOLONE 166013-7.1 UNIT/GM-% CREA 1651504 NYSTATIN-TRIAMCINOLONE Inactive AZITHROMYCIN 250 MG TABS 2 po qd x 1 day, then 1 po qd x 4 days AZITHROMYCIN 250 MG TABS 1573129 AZITHROMYCIN Inactive AZITHROMYCIN 250 MG TABS 2 po qd x 1 day, then 1 po qd x 4 days AZITHROMYCIN 250 MG TABS 7424677 AZITHROMYCIN Inactive Vital Signs Date Name Value [...] ratio (INR) 1.7 1.0-3.5 prothrombin time (patient) 17.4 SECS s 11.4-12.8 international normalized ratio (INR) 2.0 1.0-3.5 prothrombin time (patient) 17.5 SECS s 11.4-12.8 international normalized ratio (INR) 2.0 1.0-3.5 prothrombin time (patient) 24.0 SECS s 11.4-12.8 international normalized ratio (INR) 3.7 1.0-3.5 Encounters Code Encounter Date Provider Facility CPT-40611 Level 3 Est. Patient 09:21:24 CDT Piotr Daley [facility] CPT-49722 Level 3 Est. Patient 09:21:11 CDT Piotr Daley [facility] CPT-16516 Level 3 Est. Patient 11:16:29 HEALTH INFORMATION PROVIDER Piotr Daley [facility] CPT-86368 Level 3 Est. Patient 18:40:19 HEALTH INFORMATION PROVIDER Piotr Daley [facility] CPT-90176 Level 3 Est. Patient 19:30:50 CDT Piotr Daley [facility] CPT-80181 Level 3 Est. Patient 22:06:44 CDT Katrina Rinaldi MD [facility] CPT-33627 Level 3 Est. Patient 14:20:00 CDT Piotr Daley [facility] CPT-38159 Level 3 Est. Patient 14:15:22 HEALTH INFORMATION PROVIDER Piotr Katie Daley [facility] CPT-80297 Level 3 Est. Patient 20:19:57 HEALTH INFORMATION PROVIDER Piotr Daley [facility] CPT-34022 Level 3 Est. Patient 16:44:32 CDT Piotr Katie Daley [facility] CPT-79065 Level 3 Est. Patient 08:48:46 HEALTH INFORMATION PROVIDER Piotr Wilson [facility] CPT-40191 Level 3 Est. Patient 21:01:21 CDT Piotr Wilson [facility] Procedures Code Procedure Name Date Entry Date Standard Description CPT-OV Office Visit 15:45:01 HEALTH INFORMATION PROVIDER CPT-74526 Abd compl w upright 17:10:25 CDT
--- OUTSIDE RECORDS SUMMARY | 2018-07-18 11:21 | XMS REPORT ---
Author [facility] Organization [facility] Address [address] [id number] Phone [phone] Care Team Providers Care Diamond Die Driller Name Role Phone PIOTR DALEY DO PP [phone] Summary purpose TRANSITION OF CARE AUTO GENERATION Chief Complaint and Reason for Visit Admit Diagnosis 1 PAIN IN LIMB Problem list No authorized problems tracked for continuity of care are available for this visit. Encounters No authorized problems tracked for encounter diagnoses are available for this visit. Medications No home medications recorded for this patient visit Allergies, adverse reactions, alerts Allergen Category Ingredient Status Reaction Severity Onset Penicillins Drug Allergy Penicillins Confirmed or Verified Immunizations No immunizations recorded for this patient visit Relevant diagnostic tests and/or laboratory data RESULTS Radiology Results [id number] DUP DASH EXT BILAT PACs Image DATE OF EXAM: Dec 28 2013 [id number] VENOUS DUPLEX-UNILATERAL- LEFT: RADIOLOGY REPORT DATE OF SERVICE: 12/28/13 HISTORY: Bilateral lower extremity pain and swelling, recent extended travel, history of previous DVT BILATERAL LOWER EXTREMITY VENOUS DOPPLER 1045 HOURS The lower extremity veins were evaluated with high resolution real time imaging, pulsed and color flow Doppler. The right common femoral vein is patent with normal flow and shows normal compressibility. The right femoral vein contains fairly extensive thrombus with only a limited amount of blood flow. The cast of the right femoral vein are also thickened and echogenic. The right popliteal and posterior tibial veins are patent with normal spontaneous flow. The right greater saphenous vein is occluded just distal to its origin secondary to prior therapeutic closure. The left common femoral and femoral vein are patent with spontaneous flow present. There is a small area of echogenic thickening along the posterior wall of the left femoral vein and the vein is partially compressible in this region. The left popliteal, posterior tibial, and greater saphenous veins are normal. IMPRESSION: 1. Thrombus in the right femoral vein. This could be entirely chronic or could be acute superimposed on chronic changes. 2. 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 Joni Martin MD Matheus/nh09 11:21:00 / 12/28/2013 12:54:30 cc:Dr. Piotr Daley This document has been electronically Signed by: On: DATE OF EXAM: Dec 28 2013 [id number] VENOUS DUPLEX-UNILATERAL- LEFT: RADIOLOGY REPORT DATE OF SERVICE: 12/28/13 HISTORY: Bilateral lower extremity pain and swelling, recent extended travel, history of previous DVT BILATERAL LOWER EXTREMITY VENOUS DOPPLER 1045 HOURS The lower extremity veins were evaluated with high resolution real time imaging, pulsed and color flow Doppler. The right common femoral vein is patent with normal flow and shows normal compressibility. The right femoral vein contains fairly extensive thrombus with only a limited amount of blood flow. The cast of the right femoral vein are also thickened and echogenic. The right popliteal and posterior tibial veins are patent with normal spontaneous flow. The right greater saphenous vein is occluded just distal to its origin secondary to prior therapeutic closure. The left common femoral and femoral vein are patent with spontaneous flow present. There is a small area of echogenic thickening along the posterior wall of the left femoral vein and the vein is partially compressible in this region. The left popliteal, posterior tibial, and greater saphenous veins are normal. IMPRESSION: 1. Thrombus in the right femoral vein. This could be entirely chronic or could be acute superimposed on chronic changes. 2. 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 MD KELLEY Ballesteros/nh09 11:21:00 / 12/28/2013 12:54:30 cc:Dr. Piotr Daley This document has been electronically Signed by: On: DATE OF EXAM: Dec 28 2013 [id number] VENOUS DUPLEX-UNILATERAL- LEFT: RADIOLOGY REPORT DATE OF SERVICE: 12/28/13 HISTORY: Bilateral lower extremity pain and swelling, recent extended travel, history of previous DVT BILATERAL LOWER EXTREMITY VENOUS DOPPLER 1045 HOURS The lower extremity veins were evaluated with high resolution real time imaging, pulsed and color flow Doppler. The right common femoral vein is patent with normal flow and shows normal compressibility. The right femoral vein contains fairly extensive thrombus with only a limited amount of blood flow. The cast of the right femoral vein are also thickened and echogenic. The right popliteal and posterior tibial veins are patent with normal spontaneous flow. The right greater saphenous vein is occluded just distal to its origin secondary to prior therapeutic closure. The left common femoral and femoral vein are patent with spontaneous flow present. There is a small area of echogenic thickening along the posterior wall of the left femoral vein and the vein is partially compressible in this region. The left popliteal, posterior tibial, and greater saphenous veins are normal. IMPRESSION: 1. Thrombus in the right femoral vein. This could be entirely chronic or could be acute superimposed on chronic changes. 2. 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 MD KELLEY Ballesteros/nh12/28/2013 11:21:00 / 12/28/2013 12:54:30 cc:Dr. Piotr Daley This document has been electronically Signed by: JONI MARTIN On: Dec 28 20132:15P Result Amended on 2013-12-28 at 13:57:22. Previous status was VT. Result Amended on 2013-12-28 at 14:15:12. Previous status was VT. History of procedures Procedure Code Code Type Description Date Performed Performing Physician [id number] CPT-4 EXTREMITY STUDY 12-28-2013 PIOTR DALEY Functional status No functional or cognitive status [...]
--- OUTSIDE RECORDS SUMMARY | 2018-07-18 11:21 | XMS REPORT | Clinical Summary ---
Author Author Admin, YONG Organization [facility] Address Unknown Phone Unavailable Allergies, Adverse [...] day as needed for nausea/vomiting PROMETHAZINE HCL 85376406996 No Longer Active Piotr Daley DO Active TUSSIONEX PENNKINETIC ER 10-8 MG/5ML LQCR 5ml po q12hr PRN Cough HYDROCOD POLST-CHLORPHEN POLST 48913242133 No Longer Active Piotr Daley DO Active AZITHROMYCIN 250 MG TABS 2 po qd x 1 day, then 1 po qd x 4 days AZITHROMYCIN 00478188945 No Longer Active Piotr Daley DO Active LOMOTIL 2.5-0.025 MG TAB 1 to 2 four times a day as needed for diarrhea 10/13 DIPHENOXYLATE-ATROPINE 00633694943 Active Piotr Daley DO Active PREDNISONE 20 MG TAB 1 tablet twice daily for 2 days, then 1 tablet once daily for 2 days PREDNISONE 16250102968 Active Piotr Daley DO Active AZITHROMYCIN 250 MG TABS 2 po qd x 1 day, then 1 po qd x 4 days AZITHROMYCIN 94784589835 No Longer Active Piotr Daley DO Active LISINOPRIL-HYDROCHLOROTHIAZIDE 10-12.5 MG TABS 1 tab by mouth daily LISINOPRIL-HYDROCHLOROTHIAZIDE 95700960610 Active Piotr Daley DO Active LISINOPRIL 10 MG TABS 1/2-1 tab po every other day LISINOPRIL 54815183418 No Longer Active Piotr Daley DO Active WARFARIN SODIUM 4 MG TABS 1 tab every evening WARFARIN SODIUM 65623442453 Active Piotr Daley DO Active VENTOLIN HFA 108 (90 BASE) MCG/ACT AERS 2 puffs four times a day PRN cough ALBUTEROL SULFATE 51420779209 No Longer Active Piotr Daley DO Active NYSTATIN-TRIAMCINOLONE 181514-5.1 UNIT/GM-% CREA Apply to area BID NYSTATIN-TRIAMCINOLONE 87808540307 No Longer Active Alena Chavira BEHAVIORAL HEALTH ASSISTANT Active PHISOHEX 3 % LIQD Use Directed HEXACHLOROPHENE 41837035907 No Longer Active Sandra [place] Active AZITHROMYCIN 250 MG TABS 2 po qd x 1 day, then 1 po qd x 4 days AZITHROMYCIN 40452295330 No Longer Active Katrina Rinaldi MD PhD Active AZITHROMYCIN 250 MG TABS 2 po qd x 1 day, then 1 po qd x 4 days AZITHROMYCIN 76754427983 No Longer Active Piotr Daley DO Active AZITHROMYCIN 500 MG SOLR 1 po q day AZITHROMYCIN 90131194293 No Longer Active Piotr Daley DO Active IBUPROFEN 800 MG TABS 1 tab every 8 hours as needed IBUPROFEN 57844838436 Active Ellen Feliciano RN Active NYSTATIN-TRIAMCINOLONE 498086-2.1 UNIT/GM-% CREA apply bid 08/19 NYSTATIN-TRIAMCINOLONE 51728393958 No Longer Active Piotr Daley DO Active IBUPROFEN 800 MG TABS 1 po q 8 hours prn pain sparinly IBUPROFEN 02107995434 No Longer Active Piotr Daley DO Active VITAMIN D3 5000 UNIT CAPS 1 po daily CHOLECALCIFEROL 97009305677 Active Piotr Daley DO Active IBUPROFEN 800 MG TABS 1 po q 8 hours prn pain sparinly IBUPROFEN 800 MG TABS 812725 IBUPROFEN Inactive NYSTATIN-TRIAMCINOLONE 242137-3.1 UNIT/GM-% CREA apply bid 08/19 NYSTATIN-TRIAMCINOLONE 707315-2.1 UNIT/GM-% CREA 7467047 NYSTATIN- TRIAMCINOLONE Inactive AZITHROMYCIN 500 MG SOLR 1 po q day AZITHROMYCIN 500 MG SOLR 758254 AZITHROMYCIN Inactive VENTOLIN HFA 108 (90 BASE) MCG/ACT AERS 2 puffs four times a day PRN cough VENTOLIN HFA 108 (90 BASE) MCG/ACT AERS ALBUTEROL SULFATE Inactive LISINOPRIL 10 MG TABS 1/2-1 tab po every other day LISINOPRIL 10 MG TABS 503554 LISINOPRIL Inactive TUSSIONEX PENNKINETIC ER 10-8 MG/5ML LQCR 5ml po q12hr PRN Cough TUSSIONEX PENNKINETIC ER 10-8 MG/5ML LQCR HYDROCOD POLST- CHLORPHEN POLST Inactive PROMETHAZINE HCL 25 MG TABS 1 four times a day as needed for nausea/vomiting PROMETHAZINE HCL 25 MG TABS 742980 PROMETHAZINE HCL Inactive AZITHROMYCIN 250 MG TABS 2 po qd x 1 day, then 1 po qd x 4 days AZITHROMYCIN 250 MG TABS 1043759 AZITHROMYCIN Inactive AZITHROMYCIN 250 MG TABS 2 po qd x 1 day, then 1 po qd x 4 days AZITHROMYCIN 250 MG TABS 9152821 AZITHROMYCIN Inactive NYSTATIN-TRIAMCINOLONE 791493-2.1 UNIT/GM-% CREA Apply to area BID NYSTATIN-TRIAMCINOLONE 276566-3.1 UNIT/GM-% CREA 9346007 NYSTATIN-TRIAMCINOLONE Inactive AZITHROMYCIN 250 MG TABS 2 po qd x 1 day, then 1 po qd x 4 days AZITHROMYCIN 250 MG TABS 2916907 AZITHROMYCIN Inactive AZITHROMYCIN 250 MG TABS 2 po qd x 1 day, then 1 po qd x 4 days AZITHROMYCIN 250 MG TABS 8705216 AZITHROMYCIN Inactive Vital Signs Date Name Value [...] 1.0-3.5 Encounters Code Encounter Date Provider Facility CPT-90364 Level 3 Est. Patient 09:21:24 CDT Piotr Daley [facility] CPT-44407 Level 3 Est. Patient 09:21:11 CDT Piotr Daley [facility] CPT-63597 Level 3 Est. Patient 11:16:29 CUSTOMER RELATIONSHIP SPECIALIST Piotr Daley [facility] CPT-31680 Level 3 Est. Patient 18:40:19 CUSTOMER RELATIONSHIP SPECIALIST Piotr Daley [facility] CPT-95698 Level 3 Est. Patient 19:30:50 CDT Piotr Daley [facility] CPT-08001 Level 3 Est. Patient 22:06:44 CDT Katrina Rinaldi MD [facility] CPT-60027 Level 3 Est. Patient 14:20:00 CDT Piotr Daley [facility] CPT-07698 Level 3 Est. Patient 14:15:22 CUSTOMER RELATIONSHIP SPECIALIST Piotr Daley [facility] CPT-18354 Level 3 Est. Patient 20:19:57 CUSTOMER RELATIONSHIP SPECIALIST Piotr Daley [facility] CPT-89068 Level 3 Est. Patient 16:44:32 CDT Piotr Daley [facility] CPT-39898 Level 3 Est. Patient 08:48:46 CUSTOMER RELATIONSHIP SPECIALIST Piotr Daley [facility] CPT-13495 Level 3 Est. Patient 21:01:21 CDT Piotr Daley [facility] Procedures Code Procedure Name Date Entry Date Standard Description CPT-OV Office Visit 15:45:01 CUSTOMER RELATIONSHIP SPECIALIST CPT-25543 Abd compl w upright 17:10:25 CDT
--- OUTSIDE RECORDS SUMMARY | 2018-07-18 11:22 | XMS REPORT | Clinical Summary ---
Author Author Admin, YONG Organization [facility] Address Unknown Phone Unavailable Allergies, Adverse [...] Active Piotr Daley DO Pain in limb HEALTH MAINTENANCE EXAM ICD-V70.0 Inactive Katrina Rinaldi MD PhD BRONCHITIS-ACUTE ICD-466.0 Inactive Piotr Katie Edi DO SCREENING, COLON CANCER ICD-V76.51 Inactive Katrina Rinaldi MD PhD BRONCHITIS-ACUTE ICD-466.0 Inactive Piotr Katie Edi DO Bronchitis-Acute ICD-466.0 Inactive Piotr Daley DO FLANK PAIN, RIGHT ICD-789.09 Inactive Katrina Rinaldi MD PhD Medication List Medication Instructions Start Date Stop Date Generic Name NDC Status Provider Patient Instruction PROMETHAZINE HCL 25 MG TABS 1 four times a day as needed for nausea/vomiting PROMETHAZINE HCL 38404772706 No Longer Active Piotr Daley DO Active TUSSIONEX PENNKINETIC ER 10-8 MG/5ML LQCR 5ml po q12hr PRN Cough HYDROCOD POLST-CHLORPHEN POLST 12546135197 No Longer Active Piotr Daley DO Active AZITHROMYCIN 250 MG TABS 2 po qd x 1 day, then 1 po qd x 4 days AZITHROMYCIN 26281740596 No Longer Active Piotr Daley DO Active LOMOTIL 2.5-0.025 MG TAB 1 to 2 four times a day as needed for diarrhea 10/13 DIPHENOXYLATE-ATROPINE 54505089694 Active Piotr Daley DO Active PREDNISONE 20 MG TAB 1 tablet twice daily for 2 days, then 1 tablet once daily for 2 days PREDNISONE 90615202317 Active Piotr Daley DO Active AZITHROMYCIN 250 MG TABS 2 po qd x 1 day, then 1 po qd x 4 days AZITHROMYCIN 03039160104 No Longer Active Piotr Daley DO Active LISINOPRIL-HYDROCHLOROTHIAZIDE 10-12.5 MG TABS 1 tab by mouth daily LISINOPRIL-HYDROCHLOROTHIAZIDE 17635708507 Active Piotr Daley DO Active LISINOPRIL 10 MG TABS 1/2-1 tab po every other day LISINOPRIL 65800497528 No Longer Active Piotr Daley DO Active WARFARIN SODIUM 4 MG TABS 1 tab every evening WARFARIN SODIUM 21595107622 Active Piotr Daley DO Active VENTOLIN HFA 108 (90 BASE) MCG/ACT AERS 2 puffs four times a day PRN cough ALBUTEROL SULFATE 90495443228 No Longer Active Piotr Daley DO Active NYSTATIN-TRIAMCINOLONE 230710-6.1 UNIT/GM-% CREA Apply to area BID NYSTATIN-TRIAMCINOLONE 55355082141 No Longer Active Alena Chavira PIPE FITTER MARINE Active PHISOHEX 3 % LIQD Use Directed HEXACHLOROPHENE 66260991459 No Longer Active Sandra [place] Active AZITHROMYCIN 250 MG TABS 2 po qd x 1 day, then 1 po qd x 4 days AZITHROMYCIN 01832033389 No Longer Active Katrina Rinaldi MD PhD Active AZITHROMYCIN 250 MG TABS 2 po qd x 1 day, then 1 po qd x 4 days AZITHROMYCIN 78680082901 No Longer Active Piotr Daley DO Active AZITHROMYCIN 500 MG SOLR 1 po q day AZITHROMYCIN 28613077684 No Longer Active Piotr Daley DO Active IBUPROFEN 800 MG TABS 1 tab every 8 hours as needed IBUPROFEN 87976558161 Active Ellen Feliciano RN Active NYSTATIN-TRIAMCINOLONE 255428-5.1 UNIT/GM-% CREA apply bid 08/19 NYSTATIN-TRIAMCINOLONE 71503912270 No Longer Active Piotr Daley DO Active IBUPROFEN 800 MG TABS 1 po q 8 hours prn pain sparinly IBUPROFEN 93400468873 No Longer Active Piotr Daley DO Active VITAMIN D3 5000 UNIT CAPS 1 po daily CHOLECALCIFEROL 46217650231 Active Piotr Daley DO Active IBUPROFEN 800 MG TABS 1 po q 8 hours prn pain sparinly IBUPROFEN 800 MG TABS 148618 IBUPROFEN Inactive NYSTATIN-TRIAMCINOLONE 002611-6.1 UNIT/GM-% CREA apply bid 08/19 NYSTATIN-TRIAMCINOLONE 765749-0.1 UNIT/GM-% CREA 1164439 NYSTATIN- TRIAMCINOLONE Inactive AZITHROMYCIN 500 MG SOLR 1 po q day AZITHROMYCIN 500 MG SOLR 575085 AZITHROMYCIN Inactive VENTOLIN HFA 108 (90 BASE) MCG/ACT AERS 2 puffs four times a day PRN cough VENTOLIN HFA 108 (90 BASE) MCG/ACT AERS ALBUTEROL SULFATE Inactive LISINOPRIL 10 MG TABS 1/2-1 tab po every other day LISINOPRIL 10 MG TABS 544905 LISINOPRIL Inactive TUSSIONEX PENNKINETIC ER 10-8 MG/5ML LQCR 5ml po q12hr PRN Cough TUSSIONEX PENNKINETIC ER 10-8 MG/5ML LQCR HYDROCOD POLST- CHLORPHEN POLST Inactive PROMETHAZINE HCL 25 MG TABS 1 four times a day as needed for nausea/vomiting PROMETHAZINE HCL 25 MG TABS 334517 PROMETHAZINE HCL Inactive AZITHROMYCIN 250 MG TABS 2 po qd x 1 day, then 1 po qd x 4 days AZITHROMYCIN 250 MG TABS 7690262 AZITHROMYCIN Inactive AZITHROMYCIN 250 MG TABS 2 po qd x 1 day, then 1 po qd x 4 days AZITHROMYCIN 250 MG TABS 2265726 AZITHROMYCIN Inactive NYSTATIN-TRIAMCINOLONE 878814-0.1 UNIT/GM-% CREA Apply to area BID NYSTATIN-TRIAMCINOLONE 232744-3.1 UNIT/GM-% CREA 3132706 NYSTATIN-TRIAMCINOLONE Inactive AZITHROMYCIN 250 MG TABS 2 po qd x 1 day, then 1 po qd x 4 days AZITHROMYCIN 250 MG TABS 1861438 AZITHROMYCIN Inactive AZITHROMYCIN 250 MG TABS 2 po qd x 1 day, then 1 po qd x 4 days AZITHROMYCIN 250 MG TABS 0527698 AZITHROMYCIN Inactive Vital Signs Date Name Value [...] Piotr Daley DO international normalized ratio (INR) international normalized ratio (INR) 2 coagulation managed by [facility] international normalized ratio (INR) coagulation managed by Piotr Daley Lab Report: Prostatic Specific Ag - Chemistry prostate specific antigen 0.04 ng/mL 0.00-4.00 Lab Report: Prothrombin Time - Coagulation prothrombin time (patient) 16.8 SECS s 11.4-12.8 international normalized ratio (INR) 1.9 1.0-3.5 prothrombin time (patient) 14.5 SECS s 11.1-13.4 international normalized ratio (INR) 1.4 1.0-3.5 prothrombin time (patient) 15.4 SECS s 11.1-13.4 international normalized ratio (INR) 1.6 1.0-3.5 international normalized ratio (INR) 1.7 1.0-3.5 prothrombin time (patient) 16.0 SECS s 11.1-13.4 prothrombin time (patient) 17.5 SECS s 11.4-12.8 international normalized ratio (INR) 2.0 1.0-3.5 prothrombin time (patient) 17.4 SECS s 11.4-12.8 international normalized ratio (INR) 2.0 1.0-3.5 prothrombin time (patient) 24.0 SECS s 11.4-12.8 international normalized ratio (INR) 3.7 1.0-3.5 Encounters Code Encounter Date Provider Facility CPT-41087 Level 3 Est. Patient 09:21:24 CDT Piotr Daley [facility] CPT-35501 Level 3 Est. Patient 09:21:11 CDT Piotr Daley [facility] CPT-54726 Level 3 Est. Patient 11:16:29 TUCK POINTER Piotr Daley [facility] CPT-64991 Level 3 Est. Patient 18:40:19 TUCK POINTER Piotr Daley [facility] CPT-31021 Level 3 Est. Patient 19:30:50 CDT Piotr Daley [facility] CPT-42322 Level 3 Est. Patient 22:06:44 CDT Katrina Rinaldi MD [facility] CPT-82259 Level 3 Est. Patient 14:20:00 CDT Piotr Daley [facility] CPT-69601 Level 3 Est. Patient 14:15:22 TUCK POINTER Piotr Daley [facility] CPT-22415 Level 3 Est. Patient 20:19:57 TUCK POINTER Piotr Daley [facility] CPT-09722 Level 3 Est. Patient 16:44:32 CDT Piotr Katie [facility] CPT-55886 Level 3 Est. Patient 08:48:46 TUCK POINTER Piotr Daley [facility] CPT-32146 Level 3 Est. Patient 21:01:21 CDT Piotr Wilson [facility] Procedures Code Procedure Name Date Entry Date Standard Description CPT-OV Office Visit 15:45:01 TUCK POINTER CPT-72212 Abd compl w upright 17:10:25 CDT
--- OUTSIDE RECORDS SUMMARY | 2018-07-18 11:22 | XMS REPORT | Clinical Summary ---
Author Author Admin, YONG Organization [facility] Address Unknown Phone Unavailable Allergies, Adverse [...] day as needed for nausea/vomiting PROMETHAZINE HCL 46782492464 No Longer Active Piotr Daley DO Active TUSSIONEX PENNKINETIC ER 10-8 MG/5ML LQCR 5ml po q12hr PRN Cough HYDROCOD POLST-CHLORPHEN POLST 30993785091 No Longer Active Piotr Daley DO Active AZITHROMYCIN 250 MG TABS 2 po qd x 1 day, then 1 po qd x 4 days AZITHROMYCIN 64007292707 No Longer Active Piotr Daley DO Active LOMOTIL 2.5-0.025 MG TAB 1 to 2 four times a day as needed for diarrhea 10/13 DIPHENOXYLATE-ATROPINE 12376329222 Active Pitor Daley DO Active PREDNISONE 20 MG TAB 1 tablet twice daily for 2 days, then 1 tablet once daily for 2 days PREDNISONE 03148853967 Active Piotr Daley DO Active AZITHROMYCIN 250 MG TABS 2 po qd x 1 day, then 1 po qd x 4 days AZITHROMYCIN 23900513259 No Longer Active Piotr Daley DO Active LISINOPRIL-HYDROCHLOROTHIAZIDE 10-12.5 MG TABS 1 tab by mouth daily LISINOPRIL-HYDROCHLOROTHIAZIDE 22188310365 Active Piotr Daley DO Active LISINOPRIL 10 MG TABS 1/2-1 tab po every other day LISINOPRIL 68133414772 No Longer Active Piotr Daley DO Active WARFARIN SODIUM 4 MG TABS 1 tab every evening WARFARIN SODIUM 17731462899 Active Piotr Daley DO Active VENTOLIN HFA 108 (90 BASE) MCG/ACT AERS 2 puffs four times a day PRN cough ALBUTEROL SULFATE 58871281867 No Longer Active Piotr Daley DO Active NYSTATIN-TRIAMCINOLONE 249079-0.1 UNIT/GM-% CREA Apply to area BID NYSTATIN-TRIAMCINOLONE 99448164186 No Longer Active Alena Chavira MANAGER MEDICAL DEVICE Active PHISOHEX 3 % LIQD Use Directed HEXACHLOROPHENE 97892366960 No Longer Active Sandra [facility] Active AZITHROMYCIN 250 MG TABS 2 po qd x 1 day, then 1 po qd x 4 days AZITHROMYCIN 34169406349 No Longer Active Katrina Rinaldi MD PhD Active AZITHROMYCIN 250 MG TABS 2 po qd x 1 day, then 1 po qd x 4 days AZITHROMYCIN 34028484046 No Longer Active Piotr Daley DO Active AZITHROMYCIN 500 MG SOLR 1 po q day AZITHROMYCIN 08784134952 No Longer Active Piotr Daley DO Active IBUPROFEN 800 MG TABS 1 tab every 8 hours as needed IBUPROFEN 01918919576 Active Ellen Feliciano RN Active NYSTATIN-TRIAMCINOLONE 881133-8.1 UNIT/GM-% CREA apply bid 08/19 NYSTATIN-TRIAMCINOLONE 29598451505 No Longer Active Piotr Daley DO Active IBUPROFEN 800 MG TABS 1 po q 8 hours prn pain sparinly IBUPROFEN 94968789942 No Longer Active Piotr Daley DO Active VITAMIN D3 5000 UNIT CAPS 1 po daily CHOLECALCIFEROL 12302688193 Active Piotr Daley DO Active IBUPROFEN 800 MG TABS 1 po q 8 hours prn pain sparinly IBUPROFEN 800 MG TABS 471475 IBUPROFEN Inactive NYSTATIN-TRIAMCINOLONE 482581-5.1 UNIT/GM-% CREA apply bid 08/19 NYSTATIN-TRIAMCINOLONE 433181-7.1 UNIT/GM-% CREA 7268550 NYSTATIN- TRIAMCINOLONE Inactive AZITHROMYCIN 500 MG SOLR 1 po q day AZITHROMYCIN 500 MG SOLR 887703 AZITHROMYCIN Inactive VENTOLIN HFA 108 (90 BASE) MCG/ACT AERS 2 puffs four times a day PRN cough VENTOLIN HFA 108 (90 BASE) MCG/ACT AERS ALBUTEROL SULFATE Inactive LISINOPRIL 10 MG TABS 1/2-1 tab po every other day LISINOPRIL 10 MG TABS 644071 LISINOPRIL Inactive TUSSIONEX PENNKINETIC ER 10-8 MG/5ML LQCR 5ml po q12hr PRN Cough TUSSIONEX PENNKINETIC ER 10-8 MG/5ML LQCR HYDROCOD POLST- CHLORPHEN POLST Inactive PROMETHAZINE HCL 25 MG TABS 1 four times a day as needed for nausea/vomiting PROMETHAZINE HCL 25 MG TABS 427090 PROMETHAZINE HCL Inactive AZITHROMYCIN 250 MG TABS 2 po qd x 1 day, then 1 po qd x 4 days AZITHROMYCIN 250 MG TABS 1220856 AZITHROMYCIN Inactive AZITHROMYCIN 250 MG TABS 2 po qd x 1 day, then 1 po qd x 4 days AZITHROMYCIN 250 MG TABS 8942830 AZITHROMYCIN Inactive NYSTATIN-TRIAMCINOLONE 070920-9.1 UNIT/GM-% CREA Apply to area BID NYSTATIN-TRIAMCINOLONE 308085-7.1 UNIT/GM-% CREA 0499826 NYSTATIN-TRIAMCINOLONE Inactive AZITHROMYCIN 250 MG TABS 2 po qd x 1 day, then 1 po qd x 4 days AZITHROMYCIN 250 MG TABS 7143933 AZITHROMYCIN Inactive AZITHROMYCIN 250 MG TABS 2 po qd x 1 day, then 1 po qd x 4 days AZITHROMYCIN 250 MG TABS 8322361 AZITHROMYCIN Inactive Vital Signs Date Name Value [...] Range Description Append: Anticoagulation Management - Coagulation coagulation managed by Piotr Daley coagulation managed by LUIS coagulation managed by Piotr Daley DO international normalized ratio (INR) international normalized ratio (INR) international normalized ratio (INR) 2 international normalized ratio (INR) Lab Report: Prostatic Specific Ag - Chemistry prostate specific antigen 0.04 ng/mL 0.00-4.00 Lab Report: Prothrombin Time - Coagulation prothrombin time (patient) 16.8 SECS s 11.4-12.8 international normalized ratio (INR) 1.9 1.0-3.5 international normalized ratio (INR) 2.0 1.0-3.5 prothrombin time (patient) 17.4 SECS s 11.4-12.8 prothrombin time (patient) 17.5 SECS s 11.4-12.8 international normalized ratio (INR) 2.0 1.0-3.5 international normalized ratio (INR) 3.7 1.0-3.5 prothrombin time (patient) 24.0 SECS s 11.4-12.8 prothrombin time (patient) 16.0 SECS s 11.1-13.4 international normalized ratio (INR) 1.4 1.0-3.5 international normalized ratio (INR) 1.7 1.0-3.5 prothrombin time (patient) 14.5 SECS s 11.1-13.4 Encounters Code Encounter Date Provider Facility CPT-82740 Level 3 Est. Patient 09:21:24 CDT Piotr Daley [facility] CPT-02968 Level 3 Est. Patient 09:21:11 CDT Piotr Daley [facility] CPT-42653 Level 3 Est. Patient 11:16:29 CONTROL ROOM TENDER Piotr Daley [facility] CPT-94131 Level 3 Est. Patient 18:40:19 CONTROL ROOM TENDER Piotr Daley [facility] CPT-32494 Level 3 Est. Patient 19:30:50 CDT Piotr Daley [facility] CPT-20287 Level 3 Est. Patient 22:06:44 CDT Katrina Rinaldi MD PhD [facility] CPT-46423 Level 3 Est. Patient 14:20:00 CDT Piotr Daley [facility] CPT-86128 Level 3 Est. Patient 14:15:22 CONTROL ROOM TENDER Piotr [facility] CPT-38600 Level 3 Est. Patient 20:19:57 CONTROL ROOM TENDER Piotr Daley [facility] CPT-26786 Level 3 Est. Patient 16:44:32 CDT Piotr [facility] CPT-49833 Level 3 Est. Patient 08:48:46 CONTROL ROOM TENDER Piotr Daley [facility] CPT-02275 Level 3 Est. Patient 21:01:21 CDT Piotr [facility] Procedures Code Procedure Name Date Entry Date Standard Description CPT-OV Office Visit 15:45:01 CONTROL ROOM TENDER CPT-80349 Abd compl w upright 17:10:25 CDT
--- OUTSIDE RECORDS SUMMARY | 2018-07-18 11:22 | XMS REPORT | Clinical Summary ---
Author Author Admin, YONG Organization [facility] Address Unknown Phone Unavailable Allergies, Adverse Reactions, [...] TABS 1 tab every evening WARFARIN SODIUM 20174527822 No Longer Active Piotr Daley DO Active WARFARIN SODIUM 5 MG TABS 1 tablet daily except for 1.5 tablet saturday, sat and sat. WARFARIN SODIUM 34714312896 Active Piotr Daley DO Active PREDNISONE 20 MG TAB 1 tablet twice daily for 2 days, then 1 tablet once daily for 2 days PREDNISONE 62129994789 No Longer Active Piotr Daley DO Active PROMETHAZINE HCL 25 MG TABS 1 four times a day as needed for nausea/vomiting PROMETHAZINE HCL 02766727145 No Longer Active Piotr Daley DO Active TUSSIONEX PENNKINETIC ER 10-8 MG/5ML LQCR 5ml po q12hr PRN Cough HYDROCOD POLST-CHLORPHEN POLST 12299988024 No Longer Active Piotr Daley DO Active AZITHROMYCIN 250 MG TABS 2 po qd x 1 day, then 1 po qd x 4 days AZITHROMYCIN 22711256623 No Longer Active Piotr Daley DO Active LOMOTIL 2.5-0.025 MG TAB 1 to 2 four times a day as needed for diarrhea 10/13 DIPHENOXYLATE-ATROPINE 84545265306 Active Piotr Daley DO Active AZITHROMYCIN 250 MG TABS 2 po qd x 1 day, then 1 po qd x 4 days AZITHROMYCIN 61160071027 No Longer Active Piotr Daley DO Active LISINOPRIL-HYDROCHLOROTHIAZIDE 10-12.5 MG TABS 1 tab by mouth daily LISINOPRIL-HYDROCHLOROTHIAZIDE 04737819185 Active Piotr Daley DO Active LISINOPRIL 10 MG TABS 1/2-1 tab po every other day LISINOPRIL 47296537353 No Longer Active Piotr Daley DO Active VENTOLIN HFA 108 (90 BASE) MCG/ACT AERS 2 puffs four times a day PRN cough ALBUTEROL SULFATE 72384759238 No Longer Active Piotr Daley DO Active NYSTATIN-TRIAMCINOLONE 976764-2.1 UNIT/GM-% CREA Apply to area BID NYSTATIN-TRIAMCINOLONE 27687133487 No Longer Active Alena Jarvis Fan MEDICINE TECHNOLOGIST Active PHISOHEX 3 % LIQD Use Directed HEXACHLOROPHENE 46476395758 No Longer Active Sandra Fordyce Active AZITHROMYCIN 250 MG TABS 2 po qd x 1 day, then 1 po qd x 4 days AZITHROMYCIN 24513330898 No Longer Active Katrina Rinaldi MD PhD Active AZITHROMYCIN 250 MG TABS 2 po qd x 1 day, then 1 po qd x 4 days AZITHROMYCIN 61639277366 No Longer Active Piotr Daley DO Active AZITHROMYCIN 500 MG SOLR 1 po q day AZITHROMYCIN 15014833108 No Longer Active Piotr Daley DO Active IBUPROFEN 800 MG TABS 1 tab every 8 hours as needed IBUPROFEN 64616007991 Active Ellen Feliciano RN Active NYSTATIN-TRIAMCINOLONE 750810-9.1 UNIT/GM-% CREA apply bid 08/19 NYSTATIN-TRIAMCINOLONE 70923349231 No Longer Active Piotr Daley DO Active IBUPROFEN 800 MG TABS 1 po q 8 hours prn pain sparinly IBUPROFEN 56096909096 No Longer Active Piotr Daley DO Active VITAMIN D3 5000 UNIT CAPS 1 po daily CHOLECALCIFEROL 66136497492 Active Piotr Daley DO Active IBUPROFEN 800 MG TABS 1 po q 8 hours prn pain sparinly IBUPROFEN 800 MG TABS 617618 IBUPROFEN Inactive NYSTATIN-TRIAMCINOLONE 499583-9.1 UNIT/GM-% CREA apply bid 08/19 NYSTATIN-TRIAMCINOLONE 865200-0.1 UNIT/GM-% CREA 5613568 NYSTATIN- TRIAMCINOLONE Inactive AZITHROMYCIN 500 MG SOLR 1 po q day AZITHROMYCIN 500 MG SOLR 091805 AZITHROMYCIN Inactive VENTOLIN HFA 108 (90 BASE) MCG/ACT AERS 2 puffs four times a day PRN cough VENTOLIN HFA 108 (90 BASE) MCG/ACT AERS ALBUTEROL SULFATE Inactive LISINOPRIL 10 MG TABS 1/2-1 tab po every other day LISINOPRIL 10 MG TABS 762479 LISINOPRIL Inactive TUSSIONEX PENNKINETIC ER 10-8 MG/5ML LQCR 5ml po q12hr PRN Cough TUSSIONEX PENNKINETIC ER 10-8 MG/5ML LQCR HYDROCOD POLST- CHLORPHEN POLST Inactive PROMETHAZINE HCL 25 MG TABS 1 four times a day as needed for nausea/vomiting PROMETHAZINE HCL 25 MG TABS 632593 PROMETHAZINE HCL Inactive PREDNISONE 20 MG TAB 1 tablet twice daily for 2 days, then 1 tablet once daily for 2 days PREDNISONE 20 MG TAB 027401 PREDNISONE Inactive WARFARIN SODIUM 4 MG TABS 1 tab every evening WARFARIN SODIUM 4 MG TABS 217519 WARFARIN SODIUM Inactive AZITHROMYCIN 250 MG TABS 2 po qd x 1 day, then 1 po qd x 4 days AZITHROMYCIN 250 MG TABS 8324640 AZITHROMYCIN Inactive AZITHROMYCIN 250 MG TABS 2 po qd x 1 day, then 1 po qd x 4 days AZITHROMYCIN 250 MG TABS 8621782 AZITHROMYCIN Inactive NYSTATIN-TRIAMCINOLONE 588395-9.1 UNIT/GM-% CREA Apply to area BID NYSTATIN-TRIAMCINOLONE 007668-4.1 UNIT/GM-% CREA 3849342 NYSTATIN-TRIAMCINOLONE Inactive AZITHROMYCIN 250 MG TABS 2 po qd x 1 day, then 1 po qd x 4 days AZITHROMYCIN 250 MG TABS 3071725 AZITHROMYCIN Inactive AZITHROMYCIN 250 MG TABS 2 po qd x 1 day, then 1 po qd x 4 days AZITHROMYCIN 250 MG TABS 8611530 AZITHROMYCIN Inactive Vital Signs Date Name Value [...] 0.08 ng/mL 0.00-4.00 sodium, serum 142 mmol/L 592-785 4999/12/01 potassium, serum 4.7 mmol/L 3.5-5.2 chloride, serum [...] 142-424 Encounters Code Encounter Date Provider Facility CPT-19194 Level 3 Est. Patient 12:41:58 TIPPLE REPAIRER Piotr Daley DO [facility] CPT-76406 Level 3 Est. Patient 09:21:24 CDT Piotr Daley [facility] CPT-34859 Level 3 Est. Patient 09:21:11 CDT Piotr Daley [facility] CPT-00929 Level 3 Est. Patient 11:16:29 TIPPLE REPAIRER Piotr Daley [facility] CPT-82327 Level 3 Est. Patient 18:40:19 TIPPLE REPAIRER Piotr Daley [facility] CPT-88284 Level 3 Est. Patient 19:30:50 CDT Piotr Daley [facility] CPT-86028 Level 3 Est. Patient 22:06:44 CDT Katrina Rinaldi MD PhD [facility] CPT-76361 Level 3 Est. Patient 14:20:00 CDT Piotr Daley [facility] CPT-77247 Level 3 Est. Patient 14:15:22 TIPPLE REPAIRER Piotr Daley [facility] CPT-72827 Level 3 Est. Patient 20:19:57 TIPPLE REPAIRER Piotr Daley [facility] CPT-19863 Level 3 Est. Patient 16:44:32 CDT Piotr Daley [facility] CPT-01886 Level 3 Est. Patient 08:48:46 TIPPLE REPAIRER Piotr Daley [facility] CPT-48411 Level 3 Est. Patient 21:01:21 CDT Piotr Daley [facility] Procedures Code Procedure Name Date Entry Date Standard Description CPT-OV Office Visit 15:45:01 TIPPLE REPAIRER CPT-80936 Abd compl w upright 17:10:25 CDT
--- OUTSIDE RECORDS SUMMARY | 2018-07-18 11:23 | XMS REPORT | Clinical Summary ---
[...] TABS 1 tab every evening WARFARIN SODIUM 30089303793 No Longer Active Piotr Daley DO Active WARFARIN SODIUM 5 MG TABS 1 tablet daily except for 1.5 tablet saturday, sat and sat. WARFARIN SODIUM 45275983077 Active Piotr Daley DO Active PREDNISONE 20 MG TAB 1 tablet twice daily for 2 days, then 1 tablet once daily for 2 days PREDNISONE 59797972612 No Longer Active Piotr Daley DO Active PROMETHAZINE HCL 25 MG TABS 1 four times a day as needed for nausea/vomiting PROMETHAZINE HCL 40518634192 No Longer Active Piotr Daley DO Active TUSSIONEX PENNKINETIC ER 10-8 MG/5ML LQCR 5ml po q12hr PRN Cough HYDROCOD POLST-CHLORPHEN POLST 33140030285 No Longer Active Piotr Daley DO Active AZITHROMYCIN 250 MG TABS 2 po qd x 1 day, then 1 po qd x 4 days AZITHROMYCIN 12252217087 No Longer Active Piotr Daley DO Active LOMOTIL 2.5-0.025 MG TAB 1 to 2 four times a day as needed for diarrhea 10/13 DIPHENOXYLATE-ATROPINE 44817249286 Active Piotr Daley DO Active AZITHROMYCIN 250 MG TABS 2 po qd x 1 day, then 1 po qd x 4 days AZITHROMYCIN 32696950579 No Longer Active Piotr Daley DO Active LISINOPRIL-HYDROCHLOROTHIAZIDE 10-12.5 MG TABS 1 tab by mouth daily LISINOPRIL-HYDROCHLOROTHIAZIDE 38791550256 Active Piotr Daley DO Active LISINOPRIL 10 MG TABS 1/2-1 tab po every other day LISINOPRIL 59962726961 No Longer Active Piotr Daley DO Active VENTOLIN HFA 108 (90 BASE) MCG/ACT AERS 2 puffs four times a day PRN cough ALBUTEROL SULFATE 07551705759 No Longer Active Piotr Daley DO Active NYSTATIN-TRIAMCINOLONE 726275-2.1 UNIT/GM-% CREA Apply to area BID NYSTATIN-TRIAMCINOLONE 87230827317 No Longer Active Alena Jarvis Fan CHISEL WORKER Active PHISOHEX 3 % LIQD Use Directed HEXACHLOROPHENE 49320583047 No Longer Active Sandra Alfred Active AZITHROMYCIN 250 MG TABS 2 po qd x 1 day, then 1 po qd x 4 days AZITHROMYCIN 88215236334 No Longer Active Katrina Rinaldi MD PhD Active AZITHROMYCIN 250 MG TABS 2 po qd x 1 day, then 1 po qd x 4 days AZITHROMYCIN 34900283726 No Longer Active Piotr Daley DO Active AZITHROMYCIN 500 MG SOLR 1 po q day AZITHROMYCIN 27078518617 No Longer Active Piotr Daley DO Active IBUPROFEN 800 MG TABS 1 tab every 8 hours as needed IBUPROFEN 88584465415 Active Ellen Feliciano RN Active NYSTATIN-TRIAMCINOLONE 748861-3.1 UNIT/GM-% CREA apply bid 08/19 NYSTATIN-TRIAMCINOLONE 80164815708 No Longer Active Piotr Daley DO Active IBUPROFEN 800 MG TABS 1 po q 8 hours prn pain sparinly IBUPROFEN 51854136819 No Longer Active Piotr Daley DO Active VITAMIN D3 5000 UNIT CAPS 1 po daily CHOLECALCIFEROL 52710078034 Active Piotr Daley DO Active IBUPROFEN 800 MG TABS 1 po q 8 hours prn pain sparinly IBUPROFEN 800 MG TABS 457457 IBUPROFEN Inactive NYSTATIN-TRIAMCINOLONE 603848-4.1 UNIT/GM-% CREA apply bid 08/19 NYSTATIN-TRIAMCINOLONE 277011-3.1 UNIT/GM-% CREA 9366169 NYSTATIN- TRIAMCINOLONE Inactive AZITHROMYCIN 500 MG SOLR 1 po q day AZITHROMYCIN 500 MG SOLR 665825 AZITHROMYCIN Inactive VENTOLIN HFA 108 (90 BASE) MCG/ACT AERS 2 puffs four times a day PRN cough VENTOLIN HFA 108 (90 BASE) MCG/ACT AERS ALBUTEROL SULFATE Inactive LISINOPRIL 10 MG TABS 1/2-1 tab po every other day LISINOPRIL 10 MG TABS 496187 LISINOPRIL Inactive TUSSIONEX PENNKINETIC ER 10-8 MG/5ML LQCR 5ml po q12hr PRN Cough TUSSIONEX PENNKINETIC ER 10-8 MG/5ML LQCR HYDROCOD POLST- CHLORPHEN POLST Inactive PROMETHAZINE HCL 25 MG TABS 1 four times a day as needed for nausea/vomiting PROMETHAZINE HCL 25 MG TABS 306589 PROMETHAZINE HCL Inactive PREDNISONE 20 MG TAB 1 tablet twice daily for 2 days, then 1 tablet once daily for 2 days PREDNISONE 20 MG TAB 316741 PREDNISONE Inactive WARFARIN SODIUM 4 MG TABS 1 tab every evening WARFARIN SODIUM 4 MG TABS 186690 WARFARIN SODIUM Inactive AZITHROMYCIN 250 MG TABS 2 po qd x 1 day, then 1 po qd x 4 days AZITHROMYCIN 250 MG TABS 4457313 AZITHROMYCIN Inactive AZITHROMYCIN 250 MG TABS 2 po qd x 1 day, then 1 po qd x 4 days AZITHROMYCIN 250 MG TABS 5596160 AZITHROMYCIN Inactive NYSTATIN-TRIAMCINOLONE 052002-8.1 UNIT/GM-% CREA Apply to area BID NYSTATIN-TRIAMCINOLONE 068067-5.1 UNIT/GM-% CREA 0889053 NYSTATIN-TRIAMCINOLONE Inactive AZITHROMYCIN 250 MG TABS 2 po qd x 1 day, then 1 po qd x 4 days AZITHROMYCIN 250 MG TABS 6340112 AZITHROMYCIN Inactive AZITHROMYCIN 250 MG TABS 2 po qd x 1 day, then 1 po qd x 4 days AZITHROMYCIN 250 MG TABS 8933385 AZITHROMYCIN Inactive Vital Signs Date Name Value [...] ... - Chemistry sodium, serum 142 mmol/L 724-288 3368/12/01 potassium, serum 4.7 mmol/L 3.5-5.2 chloride, serum [...] 142-424 Encounters Code Encounter Date Provider Facility CPT-42978 Level 3 Est. Patient 12:41:58 MANAGER TRANSPORT Piotr Daley [facility] CPT-44793 Level 3 Est. Patient 09:21:24 CDT Piotr Daley [facility] CPT-44167 Level 3 Est. Patient 09:21:11 CDT Piotr Daley [facility] CPT-89645 Level 3 Est. Patient 11:16:29 MANAGER TRANSPORT Piotr Daley [facility] CPT-76575 Level 3 Est. Patient 18:40:19 MANAGER TRANSPORT Piotr Daley [facility] CPT-13067 Level 3 Est. Patient 19:30:50 CDT Piotr Daley [facility] CPT-80292 Level 3 Est. Patient 22:06:44 CDT Katrina Rinaldi MD PhD [facility] CPT-34773 Level 3 Est. Patient 14:20:00 CDT Piotr Daley [facility] CPT-43097 Level 3 Est. Patient 14:15:22 MANAGER TRANSPORT Piotr Daley [facility] CPT-40157 Level 3 Est. Patient 20:19:57 MANAGER TRANSPORT Poitr Daley [facility] CPT-46833 Level 3 Est. Patient 16:44:32 CDT Piotr Daley [facility] CPT-13409 Level 3 Est. Patient 08:48:46 MANAGER TRANSPORT Piotr Daley [facility] CPT-66670 Level 3 Est. Patient 21:01:21 CDT Piotr Daley [facility] Procedures Code Procedure Name Date Entry Date Standard Description CPT-OV Office Visit 15:45:01 MANAGER TRANSPORT CPT-21426 Abd compl w upright 17:10:25 CDT
--- OUTSIDE RECORDS SUMMARY | 2018-07-18 11:23 | XMS REPORT | Clinical Summary ---
[...] MD PhD HEALTH MAINTENANCE EXAM ICD-V70.0 Inactive Kartina Rinaldi MD PhD BRONCHITIS-ACUTE ICD-466.0 Inactive Piotr Daley DO SCREENING, COLON CANCER ICD-V76.51 Inactive Katrina Rinaldi MD PhD BRONCHITIS-ACUTE ICD-466.0 Inactive Piotr Katie Daley DO Bronchitis-Acute ICD-466.0 Inactive Piotr Daley DO Medication List Medication Instructions Start Date Stop Date Generic Name NDC Status Provider Patient Instruction WARFARIN SODIUM 4 MG TABS 1 tab every evening WARFARIN SODIUM 13440169160 No Longer Active Piotr Daley DO Active WARFARIN SODIUM 5 MG TABS 1 tablet daily except for 1.5 tablet saturday, sat and sat. WARFARIN SODIUM 99536581580 Active Piotr Daley DO Active PREDNISONE 20 MG TAB 1 tablet twice daily for 2 days, then 1 tablet once daily for 2 days PREDNISONE 69409281415 No Longer Active Piotr Daley DO Active PROMETHAZINE HCL 25 MG TABS 1 four times a day as needed for nausea/vomiting PROMETHAZINE HCL 31789205023 No Longer Active Piotr Daley DO Active TUSSIONEX PENNKINETIC ER 10-8 MG/5ML LQCR 5ml po q12hr PRN Cough HYDROCOD POLST-CHLORPHEN POLST 61497552027 No Longer Active Piotr Daley DO Active AZITHROMYCIN 250 MG TABS 2 po qd x 1 day, then 1 po qd x 4 days AZITHROMYCIN 39355435953 No Longer Active Piotr Daley DO Active LOMOTIL 2.5-0.025 MG TAB 1 to 2 four times a day as needed for diarrhea 10/13 DIPHENOXYLATE-ATROPINE 68014076758 Active Piotr Daley DO Active AZITHROMYCIN 250 MG TABS 2 po qd x 1 day, then 1 po qd x 4 days AZITHROMYCIN 86164548062 No Longer Active Piotr Daley DO Active LISINOPRIL-HYDROCHLOROTHIAZIDE 10-12.5 MG TABS 1 tab by mouth daily LISINOPRIL-HYDROCHLOROTHIAZIDE 45517003530 Active Piotr Daley DO Active LISINOPRIL 10 MG TABS 1/2-1 tab po every other day LISINOPRIL 82537900662 No Longer Active Piotr Daley DO Active VENTOLIN HFA 108 (90 BASE) MCG/ACT AERS 2 puffs four times a day PRN cough ALBUTEROL SULFATE 59040625376 No Longer Active Piotr Daley DO Active NYSTATIN-TRIAMCINOLONE 388039-9.1 UNIT/GM-% CREA Apply to area BID NYSTATIN-TRIAMCINOLONE 62278586539 No Longer Active Alena Jarvis Fan ALCOHOL STILL OPERATOR Active PHISOHEX 3 % LIQD Use Directed HEXACHLOROPHENE 84385501529 No Longer Active Sandra [place] Active AZITHROMYCIN 250 MG TABS 2 po qd x 1 day, then 1 po qd x 4 days AZITHROMYCIN 37070909695 No Longer Active Katrina Rinaldi MD PhD Active AZITHROMYCIN 250 MG TABS 2 po qd x 1 day, then 1 po qd x 4 days AZITHROMYCIN 66118109781 No Longer Active Piotr Daley DO Active AZITHROMYCIN 500 MG SOLR 1 po q day AZITHROMYCIN 28966718688 No Longer Active Piotr Daley DO Active IBUPROFEN 800 MG TABS 1 tab every 8 hours as needed IBUPROFEN 90465373494 Active Ellen Feliciano RN Active NYSTATIN-TRIAMCINOLONE 311111-3.1 UNIT/GM-% CREA apply bid 08/19 NYSTATIN-TRIAMCINOLONE 06940104928 No Longer Active Piotr Daley DO Active IBUPROFEN 800 MG TABS 1 po q 8 hours prn pain sparinly IBUPROFEN 51030214303 No Longer Active Piotr Daley DO Active VITAMIN D3 5000 UNIT CAPS 1 po daily CHOLECALCIFEROL 91468495419 Active Piotr Daley DO Active IBUPROFEN 800 MG TABS 1 po q 8 hours prn pain sparinly IBUPROFEN 800 MG TABS 098735 IBUPROFEN Inactive NYSTATIN-TRIAMCINOLONE 502255-9.1 UNIT/GM-% CREA apply bid 08/19 NYSTATIN-TRIAMCINOLONE 739288-7.1 UNIT/GM-% CREA 3367710 NYSTATIN- TRIAMCINOLONE Inactive AZITHROMYCIN 500 MG SOLR 1 po q day AZITHROMYCIN 500 MG SOLR 100680 AZITHROMYCIN Inactive VENTOLIN HFA 108 (90 BASE) MCG/ACT AERS 2 puffs four times a day PRN cough VENTOLIN HFA 108 (90 BASE) MCG/ACT AERS ALBUTEROL SULFATE Inactive LISINOPRIL 10 MG TABS 1/2-1 tab po every other day LISINOPRIL 10 MG TABS 917776 LISINOPRIL Inactive TUSSIONEX PENNKINETIC ER 10-8 MG/5ML LQCR 5ml po q12hr PRN Cough TUSSIONEX PENNKINETIC ER 10-8 MG/5ML LQCR HYDROCOD POLST- CHLORPHEN POLST Inactive PROMETHAZINE HCL 25 MG TABS 1 four times a day as needed for nausea/vomiting PROMETHAZINE HCL 25 MG TABS 506592 PROMETHAZINE HCL Inactive PREDNISONE 20 MG TAB 1 tablet twice daily for 2 days, then 1 tablet once daily for 2 days PREDNISONE 20 MG TAB 268159 PREDNISONE Inactive WARFARIN SODIUM 4 MG TABS 1 tab every evening WARFARIN SODIUM 4 MG TABS 075827 WARFARIN SODIUM Inactive AZITHROMYCIN 250 MG TABS 2 po qd x 1 day, then 1 po qd x 4 days AZITHROMYCIN 250 MG TABS 6154292 AZITHROMYCIN Inactive AZITHROMYCIN 250 MG TABS 2 po qd x 1 day, then 1 po qd x 4 days AZITHROMYCIN 250 MG TABS 9835706 AZITHROMYCIN Inactive NYSTATIN-TRIAMCINOLONE 793874-7.1 UNIT/GM-% CREA Apply to area BID NYSTATIN-TRIAMCINOLONE 193978-5.1 UNIT/GM-% CREA 2727371 NYSTATIN-TRIAMCINOLONE Inactive AZITHROMYCIN 250 MG TABS 2 po qd x 1 day, then 1 po qd x 4 days AZITHROMYCIN 250 MG TABS 3397459 AZITHROMYCIN Inactive AZITHROMYCIN 250 MG TABS 2 po qd x 1 day, then 1 po qd x 4 days AZITHROMYCIN 250 MG TABS 0212974 AZITHROMYCIN Inactive Vital Signs Date Name Value [...] Prothrombin Time - Coagulation prothrombin time (patient) 14.5 SECS s 11.1-13.4 [...] 11.1-13.4 international normalized ratio (INR) 2.0 1.0-3.5 international normalized ratio (INR) 1.7 1.0-3.5 prothrombin time (patient) 16.0 SECS s 11.1-13.4 prothrombin time (patient) 19.5 SECS s 11.1-13.4 international normalized ratio (INR) 2.5 1.0-3.5 Lab Report: Prothrombin Time, Basic Metabolic Panel, CBC, Prostatic Spec ... - Chemistry sodium, serum 142 mmol/L 414-770 6580/12/01 potassium, serum 4.7 mmol/L 3.5-5.2 chloride, serum [...] 142-424 Encounters Code Encounter Date Provider Facility CPT-10509 Level 3 Est. 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 Patient 09:21:24 CDT Piotr Daley [facility] CPT-68582 Level 3 Est. Patient 09:21:11 CDT Piotr Daley [facility] CPT-68946 Level 3 Est. Patient 11:16:29 ROTARY FILTER OPERATOR Piotr Daley [facility] CPT-81646 Level 3 Est. Patient 18:40:19 ROTARY FILTER OPERATOR Piotr W Edi [facility] CPT-46265 Level 3 Est. Patient 19:30:50 CDT Piotr Daley [facility] CPT-46594 Level 3 Est. Patient 22:06:44 CDT Katrina Rinaldi MD [facility] CPT-79001 Level 3 Est. Patient 14:20:00 CDT Piotr Daley [facility] CPT-34087 Level 3 Est. Patient 14:15:22 ROTARY FILTER OPERATOR Piotr Daley [facility] CPT-25804 Level 3 Est. Patient 20:19:57 ROTARY FILTER OPERATOR Piotr Daley [facility] CPT-06993 Level 3 Est. Patient 16:44:32 CDT Piotr Daley [facility] CPT-51018 Level 3 Est. Patient 08:48:46 ROTARY FILTER OPERATOR Piotr Daley [facility] CPT-43764 Level 3 Est. Patient 21:01:21 CDT Piotr Wilson [facility] Procedures Code Procedure Name Date Entry Date Standard Description CPT-OV Office Visit 15:45:01 ROTARY FILTER OPERATOR CPT-20267 Abd compl w upright 17:10:25 CDT
--- OUTSIDE RECORDS SUMMARY | 2018-07-18 11:23 | XMS REPORT | Continuity of Care Document ---
Author Organization Unknown Address Unknown Allergies Active Description Code Type Severity Reaction Onset Reported/Identified Relationship to Patient Clinical Status Yes Penicillins 476 Drug Allergy N/ A N/A Medications There is no data. 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 Encounters ACCT No. Visit Date/Time Discharge Status Pt. Type Provider Facility Loc./Unit Complaint [id number] 10/31/2017 10:39:00 10/31/2017 10:39:00 DIS Outpatient PIOTR DALEY DO LAB [id number] 07/14/2018 10:33:00 Document Registration [id number] 07/14/2018 10:02:32 ACT Unknown Piotr Daley DO [id number] 07/14/2018 11:54:52 07/14/2018 23:59:59 DIS Outpatient SELENA OG [facility] [id number] 07/03/2018 12:24:45 07/03/2018 23:59:59 DIS Outpatient PIOTR DALEY [facility] [id number] 06/18/2018 13:48:54 06/18/2018 23:59:59 DIS Outpatient SELENA OG [facility] [id number] 05/27/2018 08:14:42 05/27/2018 23:59:59 DIS Outpatient PIOTR DALEY [facility] [id number] 06/18/2017 08:54:14 06/18/2017 23:59:59 DIS Outpatient Siomara Smith Katrina [facility] [id number] 04/23/2017 10:03:26 04/23/2017 23:59:59 DIS Outpatient LuisSiomara [facility] [id number] 03/20/2016 16:36:23 03/20/2016 23:59:59 CLS Preadmit [facility] PT Lumbar Pain [id number] 04/15/2015 09:58:00 04/15/2015 09:58:00 DIS Outpatient PIOTR DALEY [facility] RAD [id number] 12/28/2013 09:39:00 12/28/2013 09:39:00 DIS Outpatient PIOTR DALEY [facility] RAD
--- NOTE | 2018-07-18 15:08 | Anesthesia-General Post-Op ---
General Patient Condition Mental Status/LOC: Same as Preop Cardiovascular: Satisfactory Nausea/Vomiting: Absent Respiratory: Satisfactory Pain: Controlled Complications: Absent Post Op Complications Complications None Follow Up Care/Instructions Patient Instructions None needed. Anesthesia/Patient Condition Patient Condition Patient is doing well, no complaints, stable vital signs, no apparent adverse anesthesia problems. No complications reported per nursing. LESLEY BARR CRNA Jul 18, 2018 15:07
== END 2018-07-18 10:35 | disposition home or self-care (01) ==
LOC: SDC 06:30
PROVIDERS: ATTEND Otolaryngology Otolaryngology/Facial Plastic Surgery
DX: J32.0 Chronic maxillary sinusitis (principal); J32.2 Chronic ethmoidal sinusitis; I10 Essential (primary) hypertension; K21.9 Gastro-esophageal reflux disease without esophagitis; Z86.718 Personal history of other venous thrombosis and embolism; Z79.01 Long term (current) use of anticoagulants; Z79.899 Other long term (current) drug therapy
CPT/HCPCS: 36415; 85610; 87070; 87075; 87077; 87081; 87101; 87205